=== PATIENT | female | born 1960 | race Caucasian/White ===

== ENCOUNTER 2016-10-07 02:19 | Emergency (ER) | payer BC, OTHER ==
[~2016-10-07] VITALS: Ht 157.5 cm; Wt 61.2 kg
[~2016-10-07 02:19] MED LIST: PRD20T PO; TRAM50TA2 PO
--- OUTSIDE RECORDS SUMMARY | 2016-10-07 02:25 | XMS REPORT | Continuity of Care Document ---
Author Author [facility] Organization [facility] Address Unknown Phone Unavailable Allergies Active Description Code Type Severity Reaction Onset Reported/Identified Relationship to Patient Clinical Status Yes No Known Drug Allergies [id number] Drug Allergy Unknown N/ A 05/08/2015 Medications Problems Procedures Results Encounters ACCT No. Visit Date/Time Discharge Status Pt. Type Provider Facility Loc./Unit Complaint [id number] 05/08/2015 11:37:00 2014 13:30:00 DIS Emergency ESTEBAN URIARTE [facility] ER
[2016-10-07] MEDS ORDERED: LOVASTATIN (02:33)
[2016-10-07] MEDS ORDERED: NEURONTIN (02:33)
[2016-10-07] MEDS ORDERED: morphine INJ 10 MG/ML 1ML (SYR OR VIAL) IM STA (03:11)
[2016-10-07] MEDS ORDERED: DIAZEPAM INJ 10 MG/2 ML (VALIUM) SYR IM ONE (03:15)
--- NOTE | 2016-10-07 03:18 | ED Neck-Back Pain/Injury ---
General Chief Complaint: Head/Cervical Problems Stated Complaint: PAIN AT BASE OF SKULL & DOWN NECK Nursing Triage Note: PT TO ED 5 W/ C/O PAIN TO BASE OF SKULL ET DOWN NECK ONSET 2100. DENIES INJURY Nursing Sepsis Screen: No Definite Risk Source of Information: Patient, Family Exam Limitations: No Limitations History of Present Illness Time Seen by Provider: 03:00 Initial Comments Here with report of pain to the left side of the neck that radiates from the base of the skull to the left shoulder. Last week had shoulder pain and was treated for that. Has history of arthritic disease. No recent injury. Does have appointment with her primary care doctor in the morning. States she came here tonight because she couldn't sleep. She did take Tylenol at 9 p.m. last night and ibuprofen at 1:30 a.m. this morning. She states that ibuprofen does appear to be helping now. Location: Paraspinous Muscles (left neck) Timing/Duration: 12 Hours Severity: Moderate Pain/Injury Location: Neck Associated Symptoms: muscle spasms Allergies and Home Medications Allergies Coded Allergies: No Known Drug Allergies (Unverified , 05/08/15) Home Medications (Reported) (Reported) Constitutional: see HPINo chills, No fever EENTM: no symptoms reported Respiratory: no symptoms reported Cardiovascular: no symptoms reported Gastrointestinal: no symptoms reported Musculoskeletal: see HPI muscle pain muscle stiffness neck pain Skin: no symptoms reported All Other Systems Reviewed Negative Unless Noted: Yes Past Qzkarzg-Rdmgsy-Stsrdd Hx Patient Social History Alcohol Use: Denies Use Recreational Drug Use: No Smoking Status: Current Everyday Smoker Type Used: Cigarettes Recent Foreign Travel: No Contact w/Someone Who Travel: No Recent Infectious Disease Expo: No Recent Hopitalizations: No Surgeries HX Surgeries: Yes (LUNG SURG, CARPAL TERA) Surgeries: Hysterectomy Respiratory Hx Respiratory Disorders: No Cardiovascular Hx Cardiac Disorders: No Neurological Hx Neurological Disorders: 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 Genitourinary Hx Genitourinary Disorders: No Gastrointestinal Hx Gastrointestinal Disorders: No Musculoskeletal Hx Musculoskeletal Disorders: Yes Musculoskeletal Disorders: Degenerate Disk Disease, Arthritis Endocrine Hx Endocrine Disorders: No Reviewed Nursing Assessment Reviewed/Agree w Nursing PMH: Yes Family Medical History Significant Family History: No Pertinent Family Hx Physical Exam Vital Signs Vital Sign - Last 12Hours 10/07/16 02:24 Temp 96.7 Pulse 93 Resp 18 B/P 174/82 Pulse Ox 95 O2 Delivery Room Air Capillary Refill : Less Than 3 Seconds General Appearance: WD/WN Mild Distress (neck pain) HEENT: PERRL/EOMI Pharynx Normal Neck: Supple Tender Lateral (left)No Tender Midline Cardiovascular: Regular Rate, Rhythm No Murmur Respiratory: Lungs Clear Normal Breath Sounds Back: Normal Inspection No CVA Tenderness No Vertebral Tenderness Extremity: Normal Range of Motion Non Tender Neurologic/Psychiatric: Alert Oriented x3 No Motor/Sensory Deficits Skin: Normal Color Warm/Dry Progress/Results/Core Measures Results/Orders My Orders Orders-DAREN ANGELES MD Diazepam Injection (Valium Injection) (10/07/16 03:15) Morphine Injection (Morphine Injection (10/07/16 03:11) Vital Signs/I&O Vital Sign - Last 12Hours 10/07/16 02:24 Temp 96.7 Pulse 93 Resp 18 B/P 174/82 Pulse Ox 95 O2 Delivery Room Air Blood Pressure Mean: 112 Progress Note : Progress Note Seen and evaluated. Morphine 8 mg IM and Valium 5 mg IM. She has problems with different muscle relaxers and pain meds. She does have a plan with her doctor in the morning. We will provide pain control currently and have her follow-up with her Dr. for further evaluation and medical treatment as indicated. Patient agrees with this plan. Discharged home with return precautions. Patient verbalize understanding instructions and agreement with plan. Departure Impression Impression: Primary Impression: Neck pain Disposition: 01 HOME, SELF-CARE Condition: Stable Departure-Patient Inst. Decision time for Depature: 03:16 Referrals: ANASTASIA TEJEDA MD (PCP/Family) Primary Care Physician Patient Instructions: Neck Pain Add. Discharge Instructions: All discharge instructions reviewed with patient and/or family. Voiced understanding. Keep appointment with her doctor in the morning as scheduled. You may take ibuprofen 800 mg every 8 hours as needed for pain. Return for worse pain, fever , vomiting, weakness, breathing problems or other concerns as needed. DAREN ANGELES MD Oct 07, 2016 03:18
[2016-10-07 03:54] VITALS: BP 152/91
[2016-12-16] MEDS ORDERED: RT-ALBUINH IH (07:26)
[2016-12-16] MEDS ORDERED: PRD20T PO (07:26)
[2016-12-16] MEDS ORDERED: LEVO750T39 PO (07:26)
== END 2016-10-07 03:54 | disposition home or self-care (01) ==
LOC: EDUNIT# 02:19 → ER 02:22
DX: M54.2 Cervicalgia (principal); F17.210 Nicotine dependence, cigarettes, uncomplicated
CPT/HCPCS: 96372; 99282

== ENCOUNTER → 2016-10-13 | Outpatient (CLI) | payer BC ==
[~2016-10-13] MED LIST changes: +ACET-789 PO; +ATOR20TA49 PO; +CEPH500C PO; +CETI10CA PO; +DEXT1TAB PO; +GABA600T PO; +LEVO750T39 PO; +LOVA20TA2 PO; +LOVASTATIN; +METH500T PO; +NEURONTIN; +RT-ALBUINH IH; +[UNRECOGNIZED DRUG - CODE] PO
--- OUTSIDE RECORDS SUMMARY | 2016-10-13 11:42 | XMS REPORT | Continuity of Care Document ---
Author Author [facility] Organization [facility] Address Unknown Phone Unavailable Allergies Active Description Code Type Severity Reaction Onset Reported/Identified Relationship to Patient Clinical Status Yes No Known Drug Allergies [id number] Drug Allergy Unknown N/ A 05/08/2015 Medications Problems Date Dx Coded Attending Type Code Diagnosis Diagnosed By 05/08/2015 ESTEBAN URIARTE Ot 715.90 OSTEOARTHROS NOS-UNSPEC 05/08/2015 ESTEBAN URIARTE Ot 719.45 JOINT PAIN-PELVIS 10/07/2016 DAREN ANGELES MD Ot F17.210 NICOTINE DEPENDENCE, CIGARETTES, UNCOMPL 10/07/2016 DAREN ANGELES MD Ot M54.2 CERVICALGIA Procedures Results Encounters ACCT No. Visit Date/Time Discharge Status Pt. Type Provider Facility Loc./Unit Complaint [id number] 10/07/2016 02:22:00 2016 03:54:00 DIS Outpatient DAREN ANGELES MD [facility] ER PAIN AT BASE OF SKULL DOWN NECK [id number] 05/08/2015 11:37:00 2014 13:30:00 DIS Emergency ETSEBAN URIARTE [facility] ER RIGHT HIP PAIN
--- NOTE | 2016-10-13 17:16 | Diagnostic Imaging Report ---
Three views of the cervical spine. INDICATION: Neck pain. FINDINGS: There is straightening of the cervical spine curvature which could be positional or related to muscle spasm. There is satisfactory alignment at the posterior spinal line and at the facet joints. There is satisfactory alignment of the lateral masses of C1 and C2. The vertebral body heights are preserved. Disc heights are also preserved. Multilevel anterior osteophytes and anterior longitudinal ligament ossification seen. There are minimal posterior osteophytes seen in the mid cervical spine. IMPRESSION: Minimal posterior osteophytes are suggested in the mid cervical spine. If symptoms persist, then further evaluation with MRI would better evaluate the effects on the thecal sac. Dictated by: Dictated on workstation # [id number]
== END ==
LOC: RAD 11:38
PROVIDERS: ATTEND Family Medicine
DX: M54.2 Cervicalgia (principal)
CPT/HCPCS: 72040

== ENCOUNTER 2016-11-13 16:43 | Emergency (ER) | payer SELFPAY ==
[~2016-11-13] VITALS: Ht 157.5 cm; Wt 60.8 kg
[~2016-11-13 16:43] MED LIST changes: -ACET-789 PO; -ATOR20TA49 PO; -CEPH500C PO; -CETI10CA PO; -DEXT1TAB PO; -GABA600T PO; -LEVO750T39 PO; -LOVA20TA2 PO; -METH500T PO; -RT-ALBUINH IH; -[UNRECOGNIZED DRUG - CODE] PO
[2016-11-13] MEDS ORDERED: LOVA20TA2 PO (17:07)
[2016-11-13] MEDS ORDERED: CETI10CA PO (17:07)
[2016-11-13] MEDS ORDERED: GABA600T PO (17:07)
--- NOTE | 2016-11-13 18:02 | ED EENT ---
History of Present Illness General Chief Complaint: Dental Problems/Pain Stated Complaint: DENTAL PAIN Nursing Triage Note: Pt c/o R lower dental pain. Pt reports she had teeth pulled 5 days ago to make room for new dentures. Pt states she thinks she had a dry socket that got infected. Source: patient Exam Limitations: no limitations History of Present Illness Time seen by provider: 18:02 Initial Comments 56-year-old female patient presents to the emergency department complains of right lower dental pain after having teeth extracted 5 days ago. Denies fever, chills, difficulty swallowing, difficulty breathing. Patient states she is currently taking Zyrtec for an upper respiratory infection. Timing/Duration: gradual Location: dental (right lower dental pain) Prearrival Treatment: over the counter meds Modifying Factors: Worse With Other (worse with palpation) Allergies and Home Medications Allergies Coded Allergies: No Known Drug Allergies (Unverified , 05/08/15) Home Medications Cephalexin 500 Mg Capsule, 500 MG PO TID for 7 Days, #21 Ref 0 Prescribed by: ESTEBAN GRIMES on 11/13/161836 Cetirizine HCl 10 Mg Capsule, 10 MG PO DAILY, (Reported) Gabapentin 600 Mg Tablet, 600 MG PO TID, (Reported) Lovastatin 20 Mg Tablet, 20 MG PO HS, (Reported) Tramadol HCl 50 Mg Tablet, 50 MG PO Q4H PRN for PAIN, #14 Ref 0 Prescribed by: ESTEBAN GRIMES on 11/13/161836 Review of Systems Constitutional: No chills, No fever, No malaise Eyes: No Symptoms Reported Ears: No Symptoms Reported Nose: no symptoms reported Mouth: see HPI, pain, denies swelling Throat: denies pain, denies swelling, denies neck stiffness, denies hoarse, denies aphonia, denies muffled, denies painful swallowing, denies difficulty with fluids Respiratory: cough, No short of breath, No stridor, wheezing Cardiovascular: no symptoms reported Gastrointestinal: no symptoms reported Skin: no symptoms reported Neurological: No Symptoms Reported All Other Systems Reviewed Negative Unless Noted: Yes (Negative excepted noted.) Past Sdqektt-Rqqtsj-Tmufca Hx Patient Social History Alcohol Use: Denies Use Recreational Drug Use: No Smoking Status: Current Everyday Smoker Type Used: Cigarettes Recent Foreign Travel: No Contact w/Someone Who Travel: No Recent Infectious Disease Expo: No Recent Hopitalizations: No Seasonal Allergies Seasonal Allergies: No Surgeries HX Surgeries: Yes (LUNG SURG, CARPAL TERA) Surgeries: Hysterectomy Respiratory Hx Respiratory Disorders: No Cardiovascular Hx Cardiac Disorders: Yes Cardiac Disorders: High Cholesterol Neurological Hx Neurological Disorders: No 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 Genitourinary Hx Genitourinary Disorders: No Gastrointestinal Hx Gastrointestinal Disorders: No Musculoskeletal Hx Musculoskeletal Disorders: Yes Musculoskeletal Disorders: Degenerate Disk Disease, Arthritis Endocrine Hx Endocrine Disorders: No Reviewed Nursing Assessment Reviewed/Agree w Nursing PMH: Yes Family Medical History Significant Family History: No Pertinent Family Hx Physical Exam Vital Signs Vital Sign - Last 12Hours 11/13/16 17:02 Temp 98.6 Pulse 87 Resp 18 B/P (MAP) 154/68 Pulse Ox 94 O2 Delivery Room Air General Appearance: WD/WN, no apparent distress Eyes: bilateral eye EOMI, bilateral eye PERRL, bilateral eye normal inspection Ears: bilateral ear TM normal, bilateral ear auricle normal, bilateral ear canal normal Nose: normal inspection Mouth/Throat: pharynx normal, No excessive drooling, No mandibular swelling, No maxillary swelling, other (mild swelling of the right lower gums with mild erythema. No drainage noted.) Neck: non-tender, full range of motion, supple, lymphadenopathy (R), lymphadenopathy (L) Cardiovascular: regular rate, rhythm, no murmur Respiratory: no respiratory distress, wheezing, expiration Gastrointestinal: non tender, soft, No distended Neurologic/Psychiatric: alert, normal mood/affect, oriented x 3 Skin: normal color, warm/dry Progress/Results/Core Measures Results/Orders My Orders Orders - ESTEBAN GRIMES Rx-Cephalexin Capsule (Rx-Keflex Capsule (11/13/16 18:34) Rx-Tramadol Hcl (Rx-Ultram) (11/13/16 18:34) Hydrocodone/Apap 5/325 Tablet (Lortab 5 (11/13/16 18:34) Rx-Albuterol Inhaler (Rx-Proair) (11/13/16 18:34) Vital Signs/I&O Vital Sign - Last 12Hours 11/13/16 17:02 Temp 98.6 Pulse 87 Resp 18 B/P (MAP) 154/68 Pulse Ox 94 O2 Delivery Room Air Blood Pressure Mean: 96 Departure Communication Progress Notes Patient seen and evaluated. Plan for discharge to home with oral tramadol, cephalexin, and albuterol inhaler. Patient instructed to follow-up with her dentist tomorrow as an outpatient. Impression Impression: Primary Impression: Pain, dental Additional Impression: Acute bronchitis Qualified Codes: J20.9 - Acute bronchitis, unspecified Disposition: 01 HOME, SELF-CARE Condition: Improved Departure-Patient Inst. Decision time for Depature: 18:35 Referrals: ANASTASAI TEJEDA MD (PCP/Family) Primary Care Physician Patient Instructions: Acute Bronchitis, Adult (DC), Dental Pain (DC) Add. Discharge Instructions: All discharge instructions reviewed with patient and/or family. Voiced understanding. Medications as instructed. Tylenol Extra Strength [id number]-[id number] as directed for pain. Ibuprofen 800 mg by mouth every 8 hours as needed for pain. Orajel jozv-bix-[id number] as directed for dental pain. Ice packs or heating pads as needed. Soft diet. Follow-up with your dentist as an outpatient for recheck. Call for appointment time. Follow-up with Dr. Tejeda for recheck. Return to the emergency department for worsened symptoms or any other concerns. Scripts Tramadol HCl (Tramadol HCl) 50 Mg Tablet 50 MG PO Q4H Y for PAIN, #14 TAB 0 Refills Prov: ESTEBAN GRIMES 11/13/16 Cephalexin (Cephalexin) 500 Mg Capsule 500 MG PO TID for 7 Days, #21 CAP 0 Refills Prov: ESTEBAN GRIMES 11/13/16 ESTEBAN GRIMES Nov 13, 2016 18:02
[2016-11-13] MEDS ORDERED: RX-ALBUTEROL INHALER (PROAIR) 8 GM IH STA (18:34)
[2016-11-13] MEDS ORDERED: HYDROcodone/APAP 5 MG/325 MG (LORTAB) TAB PO STA (18:34)
[2016-11-13] MEDS ORDERED: RX-TRAMADOL 50 MG (ULTRAM) TAB PPK#4 PO STA (18:34)
[2016-11-13] MEDS ORDERED: RX-CEPHALEXIN (KEFLEX) 250 MG CAP PPK#4 PO STA (18:34)
[2016-11-13] MEDS ORDERED: CEPH500C PO (18:37)
[2016-11-13] MEDS ORDERED: TRAM50TA2 PO (18:37)
[2016-11-16 07:18] VITALS: BP 154/68
[2016-12-16] MEDS ORDERED: RT-ALBUINH IH (07:26)
[2016-12-16] MEDS ORDERED: LEVO750T39 PO (07:26)
[2016-12-16] MEDS ORDERED: PRD20T PO (07:26)
--- OUTSIDE RECORDS SUMMARY | 2016-12-18 04:11 | XMS REPORT ---
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 Info Not Available Non Drug Allergy Problems Problem Type Condition Code Onset Dates Condition Status Problem Restless leg syndrome G25.81 Active Assessment Psoriatic arthritis L40.50 Active Problem Psoriatic arthritis L40.50 Active Assessment Restless leg syndrome G25.81 Active Medications Medication Code System Code Instructions Start Date End Date Status Dosage Neurontin [facility] [address]-25 400 MG Orally ONE DAILY X ONE WEEK AND THEN TWICE DAILY Jun 15, 2015 1 capsule Procedures Procedure Coding System Code Date C-REACTIVE PROTEIN CPT-4 03939 Jun 15, 2015 RBC SED RATE, AUTOMATED CPT-4 09266 Jun 15, 2015 ANTINUCLEAR ANTIBODIES CPT-4 93070 Jun 15, 2015 Office Visit, New Pt., Level 4 CPT-4 35617 Jun 15, 2015 ASSAY THYROID STIM HORMONE CPT-4 72274 Jun 15, 2015 VENIPUNCT, ROUTINE* CPT-4 66077 Jun 15, 2015 ASSAY OF BLOOD/URIC ACID CPT-4 26023 Jun 15, 2015 RHEUMATOID FACTOR, QUANT CPT-4 81830 Jun 15, 2015 COMPREHEN METABOLIC PANEL CPT-4 87860 Jun 15, 2015 COMPLETE CBC W/AUTO DIFF WBC CPT-4 67723 Jun 15, 2015 Vital Signs Date/Time: Jun 15, 2015 Temperature 98.7 F Weight 117.9 lbs Height 62 in BMI 21.56 Index Blood Pressure Diastolic 82 mmHg Blood Pressure Systolic 138 mmHg Cardiac Monitoring Heart Rate 84 bpm Results Name Result Date Reference Range Unit Abnormality Flag ROUTINE VENIPUNCTURE Summary Purpose [employer] Submission
--- OUTSIDE RECORDS SUMMARY | 2016-12-18 04:11 | XMS REPORT ---
Author Author GENNA NICE [facility] [employer] Address Unknown Phone Unavailable Care Team Providers Care Cuff Cutter Name Role Phone GENNA NICE CP Unavailable Allergies, Adverse Reactions, Alerts Substance Reaction Event Type N.K.D.A. Info Not Available Non Drug Allergy Problems Problem Type Condition Code Onset Dates Condition Status Problem Psoriatic arthritis L40.50 Active Problem Restless leg syndrome G25.81 Active Problem Degenerative disc disease, cervical M50.30 Active Assessment Gout M10.9 Active Assessment Degenerative disc disease, cervical M50.30 Active Problem Gout M10.9 Active Assessment Restless leg syndrome G25.81 Active Medications Medication Code System Code Instructions Start Date End Date Status Dosage Allopurinol [facility] [address]-83 300 MG Orally Once a day Jun 16, 2015Jul [address] [facility] [address]-80 400 MG Orally Three times a day Jun 29, [address] [facility] [address]-44 50 MG Orally every 8 hrs PRN pain Jun 29, 2015 1 tablet as needed Procedures Procedure Coding System Code Date Office Visit, Est Pt., Level 4 CPT-4 78676 Jun 29, 2015 No Charge CPT-4 12930 Jun 29, 2015 Vital Signs Date/Time: Jun 29, 2015 Temperature 98.4 F Weight 120.1 lbs Height 62 in BMI 21.96 Index Blood Pressure Diastolic 60 mmHg Blood Pressure Systolic 120 mmHg Cardiac Monitoring Heart Rate 86 bpm Results No Known Results Summary Purpose [employer] Submission
--- OUTSIDE RECORDS SUMMARY | 2016-12-18 04:11 | XMS REPORT | Continuity of Care Document ---
Author Author [facility] Organization [facility] Address Unknown Phone Unavailable Allergies Active Description Code Type Severity Reaction Onset Reported/Identified Relationship to Patient Clinical Status Yes No Known Drug Allergies [id number] Drug Allergy Unknown N/ A 05/08/2015 Medications Problems Date Dx Coded Attending Type Code Diagnosis Diagnosed By 05/08/2015 ESTEBAN URIARTE Ot 715.90 OSTEOARTHROS NOS-UNSPEC 05/08/2015 ESTEBAN URIARTE Ot 719.45 JOINT PAIN-PELVIS 10/07/2016 DAREN ANGELES MD Ot F17.210 NICOTINE DEPENDENCE, CIGARETTES, UNCOMPL 10/07/2016 DAREN ANGELES MD Ot M54.2 CERVICALGIA 10/07/2016 DAREN ANGELES MD Ot F17.210 NICOTINE DEPENDENCE, CIGARETTES, UNCOMPL 10/07/2016 DAREN ANGELES MD Ot M54.2 CERVICALGIA 10/13/2016 NIKHIL RAYMOND, ANASTASIA Torres Ot M54.2 CERVICALGIA 11/02/2016 NIKHIL RAYMOND, ANASTASIA Torres Ot M54.2 CERVICALGIA 11/13/2016 NIKHIL RAYMOND, ANASTASIA Torres Ot M54.2 CERVICALGIA 11/13/2016 ESTEBAN URIARTE Ot F17.210 NICOTINE DEPENDENCE, CIGARETTES, UNCOMPL 11/13/2016 ESTEBAN URIARTE Ot J20.9 ACUTE BRONCHITIS, UNSPECIFIED 11/13/2016 ESTEBAN URIARTE Ot K08.9 DISORDER OF TEETH AND SUPPORTING STRUCTU 11/13/2016 ESTEBAN URIARTE Ot Z79.899 OTHER PENITENTIARY (CURRENT) DRUG THERAPY 11/13/2016 ESTEBAN URIARTE Ot Z98.890 OTHER SPECIFIED POSTPROCEDURAL STATES 11/13/2016 ANASTASIA TEJEDA MD Ot M54.2 CERVICALGIA 11/15/2016 ESTEBAN URIARTE Ot F17.210 NICOTINE DEPENDENCE, CIGARETTES, UNCOMPL 11/15/2016 ESTEBAN URIARTE Ot J20.9 ACUTE BRONCHITIS, UNSPECIFIED 11/15/2016 ESTEBAN URIARTE Ot K08.9 DISORDER OF TEETH AND SUPPORTING STRUCTU 11/15/2016 ESTEBAN URIARTE Ot Z79.899 OTHER PENITENTIARY (CURRENT) DRUG THERAPY 11/15/2016 ESTEBAN URIARTE Ot Z98.890 OTHER SPECIFIED POSTPROCEDURAL STATES 11/17/2016 ANASTASIA TEJEDA MD Ot M54.2 CERVICALGIA 12/12/2016 ANASTASIA TEJEDA MD, Ot M54.2 CERVICALGIA 12/13/2016 ANASTASIA TEJEDA MD, Ot A41.9 SEPSIS, UNSPECIFIED ORGANISM 12/13/2016 ANASTASIA TEJEDA MD Ot E78.00 PURE HYPERCHOLESTEROLEMIA, UNSPECIFIED 12/13/2016 ANASTASIA TEJEDA MD Ot F17.210 NICOTINE DEPENDENCE, CIGARETTES, UNCOMPL 12/13/2016 ANASTASIA TEJEDA MD, Ot J18.9 PNEUMONIA, UNSPECIFIED ORGANISM 12/13/2016 ANASTASIA TEJEDA MD Ot A41.9 SEPSIS, UNSPECIFIED ORGANISM 12/13/2016 ANASTASIA TEJEDA MD Ot E78.00 PURE HYPERCHOLESTEROLEMIA, UNSPECIFIED 12/13/2016 ANASTASIA TEJEDA MD Ot F17.210 NICOTINE DEPENDENCE, CIGARETTES, UNCOMPL 12/13/2016 ANASTASIA TEJEDA MD, Ot J18.9 PNEUMONIA, UNSPECIFIED ORGANISM Procedures Results Test Result Range Complete blood count (CBC) with automated white blood cell (WBC) differential - 12/12/16 18:35 Blood leukocytes automated count (number/volume) 29.4 10*3/ uL 4.3-11.0 Blood erythrocytes automated count (number/volume) 4.39 10*6 /uL 4.35-5.85 Venous blood hemoglobin measurement (mass/volume) 13.5 g/dL 11.5-16.0 Blood hematocrit (volume fraction) 40 % 35-52 Automated erythrocyte mean corpuscular volume 92 [foz_us] 80-99 Automated erythrocyte mean corpuscular hemoglobin (mass per erythrocyte) 31 pg 25-34 Automated erythrocyte mean corpuscular hemoglobin concentration measurement ( mass/volume) 34 g/dL 32-36 Automated erythrocyte distribution width ratio 13.0 % 10.0-14.5 Automated blood platelet count (count/volume) 390 10*3/uL 130-400 Automated blood platelet mean volume measurement 9.7 [foz_us ] 7.4-10.4 Automated blood neutrophils/100 leukocytes 85 % 42-75 Automated blood lymphocytes/100 leukocytes 8 % 12-44 Blood monocytes/100 leukocytes 6 % 0-12 Automated blood eosinophils/100 leukocytes 0 % 0-10 Automated blood basophils/100 leukocytes 0 % 0-10 Blood neutrophils automated count (number/volume) 25.0 10*3 1.8-7.8 Blood lymphocytes automated count (number/volume) 2.3 10*3 1.0-4.0 Blood monocytes automated count (number/volume) 1.9 10*3 0.0-1.0 Automated eosinophil count 0.0 10*3/uL 0.0-0.3 Automated blood basophil count (count/volume) 0.1 10*3/uL 0.0-0.1 Blood manual differential performed detection - 12/12/16 18:35 Blood monocytes/100 leukocytes 2 % NRG Manual blood segmented neutrophils/100 leukocytes 84 % NRG Blood band neutrophils/100 leukocytes 4 % NRG Manual blood lymphocytes/100 leukocytes 10 % NRG Manual eosinophils/100 leukocytes in nose 0 % NRG Manual blood basophils/100 leukocytes 0 % NRG Blood erythrocyte morphology finding identification NORMAL NRG Blood lactic acid measurement (moles/volume) - 12/12/16 18:35 Blood lactic acid measurement (moles/volume) 1.47 mmol/L 0.50-2.00 Comprehensive metabolic panel - 12/12/16 18:35 Serum or plasma sodium measurement (moles/volume) 136 mmol/ L 135-145 Serum or plasma potassium measurement (moles/volume) 3.8 mmol/L 3.6-5.0 Serum or plasma chloride measurement (moles/volume) 103 mmol /L 98-107 Carbon dioxide 20 mmol/L 21-32 Serum or plasma anion gap determination (moles/volume) 13 mmol/L 5-14 Serum or plasma urea nitrogen measurement (mass/volume) 6 mg /dL 7-18 Serum or plasma creatinine measurement (mass/volume) 0.75 mg /dL 0.60-1.30 Serum or plasma urea nitrogen/creatinine mass ratio 8 NRG Serum or plasma creatinine measurement with calculation of estimated glomerular filtration rate > NRG Serum or plasma glucose measurement (mass/volume) 160 mg/dL 70-105 Serum or plasma calcium measurement (mass/volume) 9.9 mg/dL 8.5-10.1 Serum or plasma total bilirubin measurement (mass/volume) 0.5 mg/dL 0.1-1.0 Serum or plasma alkaline phosphatase measurement (enzymatic activity/volume) 34 U/L 40-136 Serum or plasma aspartate aminotransferase measurement (enzymatic activity/ volume) 13 U/L 5-34 Serum or plasma alanine aminotransferase measurement (enzymatic activity/volume ) 13 U/L 0-55 Serum or plasma protein measurement (mass/volume) 7.9 g/dL 6.4-8.2 Serum or plasma albumin measurement (mass/volume) 4.2 g/dL 3.2-4.5 Bacterial blood culture - 12/12/16 18:35 Bacterial blood culture NG NRG Bacterial blood culture - 12/12/16 18:58 Bacterial blood culture NG NRG Complete blood count (CBC) with automated white blood cell (WBC) differential - 12/13/16 04:25 Blood leukocytes automated count (number/volume) 28.4 10*3/ uL 4.3-11.0 Blood erythrocytes automated count (number/volume) 3.72 10*6 /uL 4.35-5.85 Venous blood hemoglobin measurement (mass/volume) 11.3 g/dL 11.5-16.0 Blood hematocrit (volume fraction) 34 % 35-52 Automated erythrocyte mean corpuscular volume 91 [foz_us] 80-99 Automated erythrocyte mean corpuscular hemoglobin (mass per erythrocyte) 30 pg 25-34 Automated erythrocyte mean corpuscular hemoglobin concentration measurement ( mass/volume) 33 g/dL 32-36 Automated erythrocyte distribution width ratio 12.7 % 10.0-14.5 Automated blood platelet count (count/volume) 344 10*3/uL 130-400 Automated blood platelet mean volume measurement 9.6 [foz_us ] 7.4-10.4 Automated blood neutrophils/100 leukocytes 90 % 42-75 Automated blood lymphocytes/100 leukocytes 6 % 12-44 Blood monocytes/100 leukocytes 4 % 0-12 Automated blood eosinophils/100 leukocytes 0 % 0-10 Automated blood basophils/100 leukocytes 0 % 0-10 Blood neutrophils automated count (number/volume) 25.6 10*3 1.8-7.8 Blood lymphocytes automated count (number/volume) 1.8 10*3 1.0-4.0 Blood monocytes automated count (number/volume) 1.0 10*3 0.0-1.0 Automated eosinophil count 0.0 10*3/uL 0.0-0.3 Automated blood basophil count (count/volume) 0.1 10*3/uL 0.0-0.1 Complete blood count (CBC) with automated white blood cell (WBC) differential - 12/14/16 04:20 Blood leukocytes automated count (number/volume) 25.1 10*3/ uL 4.3-11.0 Blood erythrocytes automated count (number/volume) 3.65 10*6 /uL 4.35-5.85 Venous blood hemoglobin measurement (mass/volume) 11.1 g/dL 11.5-16.0 Blood hematocrit (volume fraction) 33 % 35-52 Automated erythrocyte mean corpuscular volume 91 [foz_us] 80-99 Automated erythrocyte mean corpuscular hemoglobin (mass per erythrocyte) 30 pg 25-34 Automated erythrocyte mean corpuscular hemoglobin concentration measurement ( mass/volume) 33 g/dL 32-36 Automated erythrocyte distribution width ratio 13.0 % 10.0-14.5 Automated blood platelet count (count/volume) 387 10*3/uL 130-400 Automated blood platelet mean volume measurement 9.8 [foz_us ] 7.4-10.4 Automated blood neutrophils/100 leukocytes 90 % 42-75 Automated blood lymphocytes/100 leukocytes 8 % 12-44 Blood monocytes/100 leukocytes 2 % 0-12 Automated blood eosinophils/100 leukocytes 0 % 0-10 Automated blood basophils/100 leukocytes 0 % 0-10 Blood neutrophils automated count (number/volume) 22.5 10*3 1.8-7.8 Blood lymphocytes automated count (number/volume) 1.9 10*3 1.0-4.0 Blood monocytes automated count (number/volume) 0.6 10*3 0.0-1.0 Automated eosinophil count 0.0 10*3/uL 0.0-0.3 Automated blood basophil count (count/volume) 0.0 10*3/uL 0.0-0.1 Complete blood count (CBC) with automated white blood cell (WBC) differential - 12/15/16 08:25 Blood leukocytes automated count (number/volume) 19.2 10*3/ uL 4.3-11.0 Blood erythrocytes automated count (number/volume) 3.63 10*6 /uL 4.35-5.85 Venous blood hemoglobin measurement (mass/volume) 11.1 g/dL 11.5-16.0 Blood hematocrit (volume fraction) 34 % 35-52 Automated erythrocyte mean corpuscular volume 93 [foz_us] 80-99 Automated erythrocyte mean corpuscular hemoglobin (mass per erythrocyte) 31 pg 25-34 Automated erythrocyte mean corpuscular hemoglobin concentration measurement ( mass/volume) 33 g/dL 32-36 Automated erythrocyte distribution width ratio 13.4 % 10.0-14.5 Automated blood platelet count (count/volume) 389 10*3/uL 130-400 Automated blood platelet mean volume measurement 9.4 [foz_us ] 7.4-10.4 Automated blood neutrophils/100 leukocytes 79 % 42-75 Automated blood lymphocytes/100 leukocytes 16 % 12-44 Blood monocytes/100 leukocytes 4 % 0-12 Automated blood eosinophils/100 leukocytes 0 % 0-10 Automated blood basophils/100 leukocytes 1 % 0-10 Blood neutrophils automated count (number/volume) 15.2 10*3 1.8-7.8 Blood lymphocytes automated count (number/volume) 3.0 10*3 1.0-4.0 Blood monocytes automated count (number/volume) 0.8 10*3 0.0-1.0 Automated eosinophil count 0.1 10*3/uL 0.0-0.3 Automated blood basophil count (count/volume) 0.2 10*3/uL 0.0-0.1 Encounters ACCT No. Visit Date/Time Discharge Status Pt. Type Provider Facility Loc./Unit Complaint [id number] 11/13/2016 16:44:00 2016 18:55:00 DIS Emergency ESTEBAN URIARTE [facility] ER DENTAL PAIN [id number] 10/07/2016 02:22:00 2016 03:54:00 DIS Emergency DAREN ANGELES MD [facility] ER PAIN AT BASE OF SKULL DOWN NECK [id number] 05/08/2015 11:37:00 2014 13:30:00 DIS Emergency ESTEBAN URIARTE [facility] ER RIGHT HIP PAIN [id number] 12/12/2016 19:52:00 ACT Inpatient NIKHIL RAYMOND, ANASTASIA Torres [facility] 4TH RML PNEUMONIA, SEPSIS [id number] 10/13/2016 11:38:00 ACT Outpatient NIKHIL RAYMOND, ANASTASIA Torres [facility] RAD CERVICAL NECK PAIN
--- OUTSIDE RECORDS SUMMARY | 2016-12-18 04:11 | XMS REPORT ---
Author Author GENNA NICE [facility] eClinical[employer] Address Unknown Phone Unavailable Care Team Providers Care Canoe Inspector Final Name Role Phone GENNA NICE Unavailable Allergies No Known Allergies Problems Problem Type Condition Code Onset Dates Condition Status Problem Restless leg syndrome G25.81 Active Problem Psoriatic arthritis L40.50 Active Medications Medication Code System Code Instructions Start Date End Date Status Dosage Allopurinol [facility] [address]-92 300 MG Orally Once a day Jun 16, 2015Jul 1 tablet Results No Known Results Summary Purpose eClinicalWorks Submission
== END 2016-11-13 18:55 | disposition home or self-care (01) ==
LOC: EDUNIT# 16:43 → ER 16:44
DX: K08.9 Disorder of teeth and supporting structures, unspecified (principal); J20.9 Acute bronchitis, unspecified; F17.210 Nicotine dependence, cigarettes, uncomplicated; Z79.899 Other long term (current) drug therapy; Z98.890 Other specified postprocedural states
CPT/HCPCS: 99281; 99282

== ENCOUNTER 2016-12-12 18:03 | Inpatient (IN) | payer OTHER ==
[~2016-12-12] VITALS: Ht 157.5 cm; Wt 59.0 kg
[~2016-12-12 18:03] MED LIST changes: +CEPH500C PO; +CETI10CA PO; +GABA600T PO; +LOVA20TA2 PO
[2016-12-12] MEDS ORDERED: RT-ALBUTEROL/IPRATROPIUM 3 ML (DUONEB) VIAL ONE (18:34)
--- NOTE | 2016-12-12 18:34 | ED Dyspnea ---
General Stated Complaint: HEAD COLD/SOB/PAINFUL BREATHING Source of Information: Patient, RN Notes Reviewed Exam Limitations: No Limitations (LAUREN HURTADO DO) History of Present Illness Time Seen by Provider: 18:33 (LAUREN HURTADO DO) Initial Comments To ER with a one-week history rhinorrhea, shortness of breath, productive cough , fevers chills and weakness. Her family believes her to have pneumonia. She does smoke 1 pack of cigarettes per day but has been unable to do so recently due to the shortness of breath and cough. She is febrile upon arrival to ER at 103.2. Timing/Duration: 1 Week Severity: Moderate Associated Symptoms: Fever, Weakness, Wheezing (JASON ROLON APRN) Allergies and Home Medications Allergies Coded Allergies: No Known Drug Allergies (Unverified , 05/08/15) Home Medications Acetaminophen with Codeine 1 Each Tablet, 1 TAB PO Q6H PRN for PAIN-MODERATE, ( Reported) Atorvastatin Calcium 20 Mg Tablet, 20 MG PO DAILY, (Reported) Gabapentin 600 Mg Tablet, 600 MG PO TID, (Reported) Guaifenesin/Phenylephrine HCl 1 Each Tablet, 2 TAB PO Q4H PRN for CONGESTION, ( Reported) Methocarbamol 500 Mg Tablet, 500-1,000 MG PO Q6H PRN for MUSCLE SPASMS, ( Reported) Constitutional: see HPI, chills, fever, malaise, weakness EENTM: nose congestion, see HPI Respiratory: see HPI, cough Cardiovascular: no symptoms reported Genitourinary: no symptoms reported Musculoskeletal: no symptoms reported Skin: no symptoms reported Psychiatric/Neurological: No Symptoms Reported (JASON ROLON APRN) Past Dulepvc-Ryiktn-Vavexu Hx Patient Social History Type Used: Cigarettes Recent Foreign Travel: No Contact w/Someone Who Travel: No Recent Hopitalizations: No (LAUREN HURTADO DO) Seasonal Allergies Seasonal Allergies: No (LAUREN HURTADO DO) Surgeries HX Surgeries: Yes (LUNG SURG, CARPAL TERA) Surgeries: Hysterectomy (LAUREN HURTADO DO) Respiratory Hx Respiratory Disorders: No (LAUREN HURTADO DO) Cardiovascular Hx Cardiac Disorders: Yes Cardiac Disorders: High Cholesterol (LAUREN HURTADO DO) Neurological Hx Neurological Disorders: No (LAUREN HURTADO DO) 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 (LAUREN HURTADO DO) Genitourinary Hx Genitourinary Disorders: No (LAUREN HURTADO DO) Gastrointestinal Hx Gastrointestinal Disorders: No (LAUREN HURATDO DO) Musculoskeletal Hx Musculoskeletal Disorders: Yes Musculoskeletal Disorders: Degenerate Disk Disease, Arthritis (LAUREN HURTADO DO) Endocrine Hx Endocrine Disorders: No (LAUREN HURTADO DO) Family Medical History Significant Family History: No Pertinent Family Hx (LAUREN HURTADO DO) Physical Exam Vital Signs Vital Sign - Last 12Hours 12/12/16 18:30 Temp 103.2 Pulse 131 Resp 28 B/P (MAP) 146/72 Pulse Ox 90 (JASON ROLON APRN) Vital Signs Capillary Refill : (LAUREN HURTADO DO) General Appearance: No Apparent Distress, WD/WN, Mild Distress HEENT: PERRL/EOMI, TMs Normal Neck: Full Range of Motion, Normal Inspection Respiratory: No Accessory Muscle Use, No Respiratory Distress, Crackles, Decreased Breath Sounds, Rhonci, Wheezing Cardiovascular: Normal Peripheral Pulses, Tachycardia Gastrointestinal: Normal Bowel Sounds, Non Tender, Soft Extremity: Normal Capillary Refill, Normal Inspection Neurologic/Psychiatric: Alert, Oriented x3 Skin: Normal Color, Warm/Dry (JASON ROLON APRN) Focused Exam Lactic Acid Level Laboratory Tests Test 12/12/16 18:35 Lactic Acid Level 1.47 MMOL/L (0.50-2.00) (JASON ROLON APRN) Progress/Results/Core Measures Results/Orders Lab Results Laboratory Tests Test 12/12/16 18:35 Range/Units White Blood Count 29.4 H 4.3-11.0 10^3/uL Red Blood Count 4.39 4.35-5.85 10^6/uL Hemoglobin 13.5 11.5-16.0 G/DL Hematocrit 40 35-52 % Mean Corpuscular Volume 92 80-99 FL Mean Corpuscular Hemoglobin 31 25-34 PG Mean Corpuscular Hemoglobin Concent 34 32-36 G/DL Red Cell Distribution Width 13.0 10.0-14.5 % Platelet Count 390 130-400 10^3/uL Mean Platelet Volume 9.7 7.4-10.4 FL Neutrophils (%) (Auto) 85 H 42-75 % Lymphocytes (%) (Auto) 8 L 12-44 % Monocytes (%) (Auto) 6 0-12 % Eosinophils (%) (Auto) 0 0-10 % Basophils (%) (Auto) 0 0-10 % Neutrophils # (Auto) 25.0 H 1.8-7.8 X 10^3 Lymphocytes # (Auto) 2.3 1.0-4.0 X 10^3 Monocytes # (Auto) 1.9 H 0.0-1.0 X 10^3 Eosinophils # (Auto) 0.0 0.0-0.3 10^3/uL Basophils # (Auto) 0.1 0.0-0.1 10^3/uL Neutrophils % (Manual) 84 % Lymphocytes % (Manual) 10 % Monocytes % (Manual) 2 % Eosinophils % (Manual) 0 % Basophils % (Manual) 0 % Band Neutrophils 4 % Blood Morphology Comment NORMAL Sodium Level 136 135-145 MMOL/L Potassium Level 3.8 3.6-5.0 MMOL/L Chloride Level 103 98-107 MMOL/L Carbon Dioxide Level 20 L 21-32 MMOL/L Anion Gap 13 5-14 MMOL/L Blood Urea Nitrogen 6 L 7-18 MG/DL Creatinine 0.75 0.60-1.30 MG/DL Estimat Glomerular Filtration Rate > 60 BUN/Creatinine Ratio 8 Glucose Level 160 H 70-105 MG/DL Lactic Acid Level 1.47 0.50-2.00 MMOL/L Calcium Level 9.9 8.5-10.1 MG/DL Total Bilirubin 0.5 0.1-1.0 MG/DL Aspartate Amino Transf (AST/SGOT) 13 5-34 U/L Alanine Aminotransferase (ALT/SGPT) 13 0-55 U/L Alkaline Phosphatase 34 L 40-136 U/L Total Protein 7.9 6.4-8.2 G/DL Albumin 4.2 3.2-4.5 G/DL (JASON ROLON APRN) My Orders Orders - JASON ROLON APRN Cbc With Automated Diff (12/12/16 18:35) Comprehensive Metabolic Panel (12/12/16 18:35) Saline Lock/Iv-Start (12/12/16 18:35) Blood Culture (12/12/16 18:35) Lactic Acid Analyzer (12/12/16 18:35) Chest Pa/Lat (2 View) (12/12/16 18:35) Albuterol/Ipra Inhalation Soln (Duoneb I (12/12/16 18:45) Svn Sm Volume Nebulizer Rt-Rfs (12/12/16 18:35) Ibuprofen Tablet (Motrin Tablet) (12/12/16 18:45) Acetaminophen Tablet (Tylenol Tablet) (12/12/16 18:45) Methylprednisolone Sod Succ (Solu-Medrol (12/12/16 18:45) Albuterol/Ipra Inhalation Soln (Duoneb I (12/12/16 18:34) Manual Differential (12/12/16 18:35) Albuterol Pre-Mix Nebs (Rt) (Proventil P (12/12/16 19:00) (JASON ROLON APRN) Medications Given in ED Current Medications Medications Dose Ordered Sig/Lance Route Start Time Stop Time Status Last Admin Dose Admin Acetaminophen 1,000 mg ONCE ONCE PO 12/12/16 18:45 12/12/16 18:46 DC 12/12/16 18:48 1,000 MG Albuterol/ Ipratropium 3 ml ONCE ONCE INH 12/12/16 18:45 12/12/16 18:46 DC 12/12/16 18:41 3 ML Albuterol/ Ipratropium 3 ml STK-MED ONCE .ROUTE 12/12/16 18:34 12/12/16 18:42 DC 12/12/16 19:38 3 ML Ibuprofen 800 mg ONCE ONCE PO 12/12/16 18:45 12/12/16 18:46 DC 12/12/16 18:48 800 MG Methylprednisolone Sodium Succinate 125 mg ONCE ONCE IVP 12/12/16 18:45 12/12/16 18:46 DC 12/12/16 18:48 125 MG (JASON ROLON APRN) Vital Signs/I&O Vital Sign - Last 12Hours 12/12/16 12/12/16 18:30 18:41 Temp 103.2 Pulse 131 Resp 28 B/P (MAP) 146/72 Pulse Ox 90 93 (JASON ROLON APRN) Diagnostic Imaging Diagonstic Imaging: Xray Plain Films/CT/US/NM/MRI: chest Comments NAME: ALONSOETELVINA MED REC#: [id number] PT STATUS: REG ER : 1960 PHYSICIAN: JASON ROLON APRN ADMIT DATE: 12/12/16/ER Draft Date of Exam:12/12/16 CHEST PA/LAT (2 VIEW) INDICATION: Cough and congestion. Fever x1 week.. TECHNIQUE: Two view chest 7:18 PM CORRELATION STUDY: None FINDINGS: The heart size, mediastinal configuration and pulmonary vasculature are within normal limits. There is patchy density in the right mid and lower lung field. Given history favors probable area of pneumonia. Likely trace effusion. Left lung is relatively clear. Multilevel degenerative change of the thoracic spine with bridging osteophytes. IMPRESSION: 1. Patchy nodular infiltrate at the right mid and lower lung field favoring probable pneumonia. However, followup imaging until resolution is recommended. Mass lesion is not excluded at this time. Dictated on workstation # [id number] Dict: 12/12/161905 Trans: 12/12/161909 SOFIA [id number] Interpreted by: DENIA LUNDBERG DO Electronically signed by: (JASON ROLON APRN) Departure Impression Impression: Primary Impression: right sided pneumonia Additional Impression: Sepsis Disposition: ADMITTED INPATIENT Condition: Stable Decision to Admit Reason: Admit from ER (General) Decision to Admit/Date: December 12, 2016 Time/Decision to Admit Time: 19:42 (JASON ROLON APRN) Departure-Patient Inst. Referrals: ANASTASIA TEJEDA MD (PCP/Family) Primary Care Physician LAUREN HURTADO DO December 12, 2016 18:34 JASON ROLON APRN December 12, 2016 18:39
[2016-12-12 18:43] LABS: BASOPHILS # (AUTO) 0.1 10^3/uL (0.0-0.1); BASOPHILS % (AUTO) 0 % (0-10); EOSINOPHILS % (AUTO) 0 % (0-10); LYMPHOCYTES # (AUTO) 2.3 X 10^3 (1.0-4.0); LYMPHOCYTES % (AUTO) 8 % (12-44); MEAN CORPUSCULAR HEMOGLOBIN 31 PG (25-34); MEAN CORPUSCULAR HGB CONC 34 G/DL (32-36); MEAN CORPUSCULAR VOLUME 92 FL (80-99); MEAN PLATELET VOLUME 9.7 FL (7.4-10.4); MONOCYTES # (AUTO) 1.9 X 10^3 (0.0-1.0); MONOCYTES % (AUTO) 6 % (0-12); NEUTROPHILS % (AUTO) 85 % (42-75); PLATELET COUNT 390 10^3/uL (130-400); RED BLOOD COUNT 4.39 10^6/uL (4.35-5.85); WHITE BLOOD COUNT 29.4 10^3/uL (4.3-11.0)
[2016-12-12] MEDS ORDERED: methylPREDNISolone 125 MG (Solu-MEDROL) VIAL IVP ONE (18:45)
[2016-12-12] MEDS ORDERED: RT-ALBUTEROL/IPRATROPIUM 3 ML (DUONEB) VIAL INH ONE (18:45)
[2016-12-12] MEDS ORDERED: IBUPROFEN 800 MG (MOTRIN) TAB PO ONE (18:45)
[2016-12-12] MEDS ORDERED: ACETAMINOPHEN 500 MG TAB (TYLENOL) PO ONE (18:45)
[2016-12-12 18:59] LABS: BAND NEUTROPHILS 4 %; BASOPHILS % (MANUAL) 0 %; EOSINOPHILS % (MANUAL) 0 %; LYMPHOCYTES % (MANUAL) 10 %; NEUTROPHILS % (MANUAL) 84 %
[2016-12-12] MEDS ORDERED: RT-ALBUTEROL SULF 2.5 MG/3 ML PRE-MIX VIAL IH SCH (19:00)
[2016-12-12 19:04] LABS: ALANINE AMINOTRANSFERASE 13 U/L (0-55); ALBUMIN 4.2 G/DL (3.2-4.5); ANION GAP 13 MMOL/L (5-14); ASPARTATE AMINO TRANSFERASE 13 U/L (5-34); BILIRUBIN,TOTAL 0.5 MG/DL (0.1-1.0); BLOOD UREA NITROGEN 6 MG/DL (7-18); BUN/CREATININE RATIO 8; CALCIUM 9.9 MG/DL (8.5-10.1); CARBON DIOXIDE 20 MMOL/L (21-32); CHLORIDE 103 MMOL/L (98-107); CREATININE SERUM 0.75 MG/DL (0.60-1.30); GFR ESTIMATED > 60; GLUCOSE 160 MG/DL (70-105); POTASSIUM 3.8 MMOL/L (3.6-5.0); SODIUM 136 MMOL/L (135-145); TOTAL PROTEIN 7.9 G/DL (6.4-8.2)
--- NOTE | 2016-12-12 19:11 | Diagnostic Imaging Report ---
INDICATION: Cough and congestion. Fever x1 week.. TECHNIQUE: Two view chest 7:18 PM CORRELATION STUDY: None FINDINGS: The heart size, mediastinal configuration and pulmonary vasculature are within normal limits. There is patchy density in the right mid and lower lung field. Given history favors probable area of pneumonia. Likely trace effusion. Left lung is relatively clear. Multilevel degenerative change of the thoracic spine with bridging osteophytes. IMPRESSION: 1. Patchy nodular infiltrate at the right mid and lower lung field favoring probable pneumonia. However, followup imaging until resolution is recommended. Mass lesion is not excluded at this time. Dictated by: Dictated on workstation # [id number]
[2016-12-12] MEDS ORDERED: CEFEPIME INJECTION 2,000 MG in NS (IVPB) 50 ML IV ONE (20:00)
[2016-12-12] MEDS ORDERED: NS IV 1000 ML 1,000 ML IV SCH (20:00)
[2016-12-12] MEDS ORDERED: IBUPROFEN 600 MG (MOTRIN) TAB PO PRN (21:30)
[2016-12-12] MEDS: CATHETER FLUSH 10 ML SYR IV SCH (21:41)
[2016-12-12] MEDS ORDERED: ONDANSETRON 4 MG/2 ML (SDV) Z0FRAN IV PRN (21:45)
[2016-12-12] MEDS ORDERED: CATHETER FLUSH 10 ML SYR IV PRN (21:45)
[2016-12-12] MEDS ORDERED: ACETAMINOPHEN 325 MG TABLET/CAPLET (TYLENOL) PO PRN (21:45)
[2016-12-12] MEDS: LEVOFLOXACIN 750 MG/D5W 150 ML PRE-MIX IV SCH (21:50)
[2016-12-12] MEDS: NS IV 1000 ML 1,000 ML IV SCH (21:50)
[2016-12-13] VITALS: BP 110/55
[2016-12-13] MEDS ORDERED: RT-ALBUTEROL/IPRATROPIUM 3 ML (DUONEB) VIAL INH PRN (02:30)
[2016-12-13 04:00] VITALS: BP 123/61
[2016-12-13 04:37] LABS: BASOPHILS # (AUTO) 0.1 10^3/uL (0.0-0.1); BASOPHILS % (AUTO) 0 % (0-10); EOSINOPHILS % (AUTO) 0 % (0-10); LYMPHOCYTES # (AUTO) 1.8 X 10^3 (1.0-4.0); LYMPHOCYTES % (AUTO) 6 % (12-44); MEAN CORPUSCULAR HEMOGLOBIN 30 PG (25-34); MEAN CORPUSCULAR HGB CONC 33 G/DL (32-36); MEAN CORPUSCULAR VOLUME 91 FL (80-99); MEAN PLATELET VOLUME 9.6 FL (7.4-10.4); MONOCYTES % (AUTO) 4 % (0-12); NEUTROPHILS # (AUTO) 25.6 X 10^3 (1.8-7.8); NEUTROPHILS % (AUTO) 90 % (42-75); PLATELET COUNT 344 10^3/uL (130-400); RED BLOOD COUNT 3.72 10^6/uL (4.35-5.85); RED CELL DISTRIBUTION WIDTH 12.7 % (10.0-14.5); WHITE BLOOD COUNT 28.4 10^3/uL (4.3-11.0)
[2016-12-13] MEDS: NS IV 1000 ML 1,000 ML IV SCH ×3 (05:35→20:51)
[2016-12-13] MEDS: CATHETER FLUSH 10 ML SYR IV SCH ×3 (05:36→20:54)
--- NOTE | 2016-12-13 07:19 | History & Physicial ---
History of Present Illness History of Present Illness Reason for visit/HPI 56-year-old female presents to the emergency department during the evening of December 12, 2016 with a one-week history of rhinorrhea, productive cough as well as fever. She does smoke 1 pack of cigarettes per day and usually does not have any shortness of breath. She reports shortness of breath also over the past few days. She has been on cephalexin for respiratory symptoms. She was noted to have a fever of 103.2 when she reached the emergency department. Date of Admission December 12, 2016 at 19:52 I consulted on this patient on 12/13/16 07:15 Attending Physician Iggy Tejeda MD Admitting Physician Iggy Tejeda MD Consult Allergies and Home Medications Allergies Coded Allergies: No Known Drug Allergies (Unverified , 05/08/15) Home Medications Cephalexin 500 Mg Capsule, 500 MG PO TID for 7 Days, #21 Ref 0 Prescribed by: ESTEBAN GRIMES on 11/13/161836 Cetirizine HCl 10 Mg Capsule, 10 MG PO DAILY, (Reported) Gabapentin 600 Mg Tablet, 600 MG PO TID, (Reported) Lovastatin 20 Mg Tablet, 20 MG PO HS, (Reported) Tramadol HCl 50 Mg Tablet, 50 MG PO Q4H PRN for PAIN, #14 Ref 0 Prescribed by: ESTEBAN GRIMES on 11/13/161836 Past Scsvrfw-Wejilx-Erdzun Hx Patient Social History Marrital Status: Alcohol Use: Denies Use Recreational Drug Use: No Smoking Status: Current Everyday Smoker Type Used: Cigarettes Physical Abuse Screen: No Sexual Abuse: No Recent Foreign Travel: No Contact w/other who traveled: No Recent Hopitalizations: No Recent Infectious Disease Expo: No Seasonal Allergies Seasonal Allergies: No Surgeries HX Surgeries: Yes (LUNG SURG, CARPAL TERA) Surgeries: Hysterectomy Respiratory Hx Respiratory Disorders: No Cardiovascular Hx Cardiovascular Disorders: Yes Cardiac Disorders: High Cholesterol Neurological Hx Neurological Disorders: No 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 System Female 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 Disorders: Denies Genitourinary Hx Genitourinary Disorders: No Gastrointestinal Hx Gastrointestinal Disorders: No Musculoskeletal Hx Musculoskeletal Disorders: Yes Musculoskeletal Disorders: Degenerate Disk Disease, Arthritis Endocrine Hx Endocrine Disorders: No Family Medical History Significant Family History: No Pertinent Family Hx Constitutional: see HPI Physical Exam Vital Signs Vital Sign - Last 12Hours 12/12/16 12/12/16 18:30 19:38 Temp 103.2 Pulse 131 Resp 28 B/P (MAP) 146/72 Pulse Ox 90 O2 Delivery Room Air Capillary Refill : Less Than 3 Seconds General Appearance: Mild Distress Eyes: Bilateral Eye Normal Inspection HEENT: Pharynx Normal Neck: Supple Respiratory: Decreased Breath Sounds, Rhonci, Wheezing Cardiovascular: Regular Rate, Rhythm Gastrointestinal: Soft Rectal: Deferred Extremity: Normal Capillary Refill Comments NAME: [facility] REC#: [id number] PT STATUS: ADM IN : 1960 PHYSICIAN: JASON ROLON APRN ADMIT DATE: 12/12/16 Signed Date of Exam: 12/12/16 CHEST PA/LAT (2 VIEW) INDICATION: Cough and congestion. Fever x1 week.. TECHNIQUE: Two view chest 7:18 PM CORRELATION STUDY: None FINDINGS: The heart size, mediastinal configuration and pulmonary vasculature are within normal limits. There is patchy density in the right mid and lower lung field. Given history favors probable area of pneumonia. Likely trace effusion. Left lung is relatively clear. Multilevel degenerative change of the thoracic spine with bridging osteophytes. IMPRESSION: 1. Patchy nodular infiltrate at the right mid and lower lung field favoring probable pneumonia. However, followup imaging until resolution is recommended. Mass lesion is not excluded at this time. Dictated by: Dictated on workstation # [id number] Dict: 12/12/161905 Trans: 12/12/162235 Interpreted by: DENIA LUNDBERG DO Electronically signed by: DENIA LUNDBERG DO 12/12/166 Assessment/Plan Assessment and Plan 1. Right middle lobe pneumonia -patient to be admitted for IV antibiotics Levaquin and cefepime for community- acquired pneumonia -she was also started on albuterol breathing treatments. -Blood cultures are pending from the emergency department -1 dose of Solu-Medrol 125 mg given in the ED. 2. Severe sepsis- as evident by pulse, temp, WBC Problems: Admission Diagnosis 1. Right middle lobe pneumonia 2. Severe sepsis- as evident by pulse, temp, WBC Clinical Quality Measures DVT/VTE Risk/Contraindication: Risk Factor Score Per Nursin RFS Level Per Nursing on Admit: 2=Moderate IGGY TEJEDA MD December 13, 2016 07:19
[2016-12-13] MEDS ORDERED: ZOLPIDEM 5 MG (AMBIEN) TAB PO PRN (07:45)
[2016-12-13 08:00] VITALS: BP 140/66
[2016-12-13] MEDS: CEFEPIME 2 GM/NS 50 ML IVPB IV SCH ×4 (08:26→20:51)
[2016-12-13] MEDS: methylPREDNISolone 40 MG/ML (Solu-MEDROL) VIAL IV SCH ×2 (08:26→20:51)
[2016-12-13] MEDS: RT-ALBUTEROL/IPRATROPIUM 3 ML (DUONEB) VIAL INH SCH ×4 (10:30→21:06)
[2016-12-13] MEDS: NICOTINE 14 MG (NICODERM) PATCH TD SCH ×2 (11:05→22:07)
[2016-12-13] MEDS ORDERED: DEXT1TAB PO (11:15)
[2016-12-13] MEDS ORDERED: ATOR20TA49 PO (11:17)
[2016-12-13] MEDS ORDERED: [UNRECOGNIZED DRUG - CODE] PO (11:17)
[2016-12-13] MEDS ORDERED: METH500T PO (11:19)
[2016-12-13] MEDS ORDERED: ACET-789 PO (11:19)
[2016-12-13 12:00] VITALS: BP 133/67
[2016-12-13] MEDS ORDERED: RX-ACETAMINOPHEN/CODEINE TAB PPK #4 PO PRN (15:15)
[2016-12-13] MEDS ORDERED: METHOCARBAMOL 500 MG (ROBAXIN) TABLET PO PRN (15:15)
[2016-12-13 15:40] VITALS: BP 136/67
[2016-12-13] MEDS: APAP 300 MG/CODEINE 30 MG (TYLENOL #3) TAB PO PRN ×2 (16:12→22:04)
[2016-12-13 19:30] VITALS: BP 147/65
[2016-12-13] MEDS: GABAPENTIN 600 MG (NEURONTIN) TAB PO SCH (20:51)
[2016-12-13] MEDS: LEVOFLOXACIN 750 MG/D5W 150 ML PRE-MIX IV SCH (22:04)
[2016-12-14 00:45] VITALS: BP 154/64
[2016-12-14] MEDS: RT-ALBUTEROL/IPRATROPIUM 3 ML (DUONEB) VIAL INH SCH ×6 (02:53→22:08)
[2016-12-14 04:35] LABS: BASOPHILS % (AUTO) 0 % (0-10); EOSINOPHILS % (AUTO) 0 % (0-10); LYMPHOCYTES # (AUTO) 1.9 X 10^3 (1.0-4.0); LYMPHOCYTES % (AUTO) 8 % (12-44); MEAN CORPUSCULAR HEMOGLOBIN 30 PG (25-34); MEAN CORPUSCULAR HGB CONC 33 G/DL (32-36); MEAN CORPUSCULAR VOLUME 91 FL (80-99); MEAN PLATELET VOLUME 9.8 FL (7.4-10.4); MONOCYTES # (AUTO) 0.6 X 10^3 (0.0-1.0); MONOCYTES % (AUTO) 2 % (0-12); NEUTROPHILS # (AUTO) 22.5 X 10^3 (1.8-7.8); NEUTROPHILS % (AUTO) 90 % (42-75); PLATELET COUNT 387 10^3/uL (130-400); RED BLOOD COUNT 3.65 10^6/uL (4.35-5.85); WHITE BLOOD COUNT 25.1 10^3/uL (4.3-11.0)
[2016-12-14] MEDS: CATHETER FLUSH 10 ML SYR IV SCH ×3 (06:13→20:42)
[2016-12-14] MEDS: APAP 300 MG/CODEINE 30 MG (TYLENOL #3) TAB PO PRN ×3 (07:35→21:58)
--- NOTE | 2016-12-14 08:01 | Progress Note (SOAP) ---
Subjective Subjective/Events-last exam Having chest discomfort but she believes its from all her coughing. Objective Exam Vital Signs Date Time Temp Pulse Resp B/P (MAP) Pulse Ox O2 Delivery O2 Flow Rate FiO2 12/14/16 06:22 95 12/14/16 02:54 94 12/14/16 00:45 98.2 108 22 154/64 96 Room Air 12/13/16 21:06 94 12/13/16 19:30 99.2 119 20 147/65 92 Room Air 12/13/16 18:30 93 12/13/16 15:40 99.1 104 20 136/67 92 Room Air 12/13/16 14:23 98 12/13/16 12:00 99.3 109 20 133/67 93 Room Air 12/13/16 09:00 94 I & O 12/14/16 07:00 Intake Total 3160 ml Output Total 1800 ml Balance 1360 ml Capillary Refill : Less Than 3 Seconds General Appearance: No Apparent Distress Neck: Supple Respiratory: Crackles, Rhonci Cardiovascular: Regular Rate, Rhythm Results Lab Laboratory Tests 12/14/16 04:20: White Blood Count 25.1H, Red Blood Count 3.65L, Hemoglobin 11.1L, Hematocrit 33L , Mean Corpuscular Volume 91, Mean Corpuscular Hemoglobin 30, Mean Corpuscular Hemoglobin Concent 33, Red Cell Distribution Width 13.0, Platelet Count 387, Mean Platelet Volume 9.8, Neutrophils (%) (Auto) 90H, Lymphocytes (%) (Auto) 8L , Monocytes (%) (Auto) 2, Eosinophils (%) (Auto) 0, Basophils (%) (Auto) 0, Neutrophils # (Auto) 22.5H, Lymphocytes # (Auto) 1.9, Monocytes # (Auto) 0.6, Eosinophils # (Auto) 0.0, Basophils # (Auto) 0.0 Microbiology 12/12/16 Blood Culture - Preliminary, Resulted No growth Assessment/Plan Assessment/Plan Assess & Plan/Chief Complaint 1. Right middle lobe pneumonia -patient to be admitted for IV antibiotics Levaquin and cefepime for community- acquired pneumonia -she was also started on albuterol breathing treatments. -Blood cultures are pending from the emergency department -1 dose of Solu-Medrol 125 mg given in the ED. 12/14 Hold solumedrol and switch to prednisone -check CXR to fu patchy infiltrates in addition to subjective CP 2. Severe sepsis- as evident by pulse, temp, WBC Clinical Quality Measures DVT/VTE Risk/Contraindication: Risk Factor Score Per Nursin RFS Level Per Nursing on Admit: 2=Moderate ANASTASIA TEJEDA MD December 14, 2016 08:01
[2016-12-14 08:17] VITALS: BP 137/71
[2016-12-14] MEDS: predniSONE 20 MG TAB PO SCH (08:39)
[2016-12-14] MEDS: CEFEPIME 2 GM/NS 50 ML IVPB IV SCH ×4 (08:40→19:45)
[2016-12-14] MEDS: GABAPENTIN 600 MG (NEURONTIN) TAB PO SCH ×3 (08:40→19:45)
[2016-12-14] MEDS: ATORVASTATIN 20 MG (LIPITOR) TABLET PO SCH (08:40)
[2016-12-14] MEDS: guaiFENesin/CODEINE (ROBITUSSIN AC) 10ML UDC PO PRN ×3 (08:40→19:46)
[2016-12-14] MEDS: PATCH REMOVAL TP SCH (08:45)
[2016-12-14] MEDS: NICOTINE 14 MG (NICODERM) PATCH TD SCH (08:46)
--- NOTE | 2016-12-14 09:32 | Diagnostic Imaging Report ---
INDICATION: Back pain and cough. PA and lateral chest obtained at 9:33 a.m. FINDINGS: Heart is borderline in size. There are patchy infiltrates in both lungs especially in the right base. These findings are unchanged compared to the prior study. There is no pneumothorax or pleural fluid. IMPRESSION: Mild cardiomegaly. Patchy infiltrates in both lung bases right worse than left. No significant change from 12/12/16. Dictated by: Dictated on workstation # [id number]
[2016-12-14] MEDS: NS IV 1000 ML 1,000 ML IV SCH ×2 (09:41→19:45)
[2016-12-14 16:00] VITALS: BP 134/78
[2016-12-14 20:17] VITALS: BP 133/62
[2016-12-14] MEDS: LEVOFLOXACIN 750 MG/D5W 150 ML PRE-MIX IV SCH (20:42)
[2016-12-15] VITALS: BP 121/70
[2016-12-15] MEDS: RT-ALBUTEROL/IPRATROPIUM 3 ML (DUONEB) VIAL INH SCH ×6 (02:00→22:11)
[2016-12-15] MEDS: guaiFENesin/CODEINE (ROBITUSSIN AC) 10ML UDC PO PRN ×2 (02:44→17:16)
[2016-12-15] MEDS: APAP 300 MG/CODEINE 30 MG (TYLENOL #3) TAB PO PRN ×3 (06:01→21:57)
[2016-12-15] MEDS: CATHETER FLUSH 10 ML SYR IV SCH ×3 (06:01→21:45)
[2016-12-15] MEDS: predniSONE 20 MG TAB PO SCH (06:01)
[2016-12-15] MEDS ORDERED: predniSONE 20 MG TAB PO SCH (07:00)
[2016-12-15] MEDS: NS IV 1000 ML 1,000 ML IV SCH ×3 (07:39→20:44)
[2016-12-15 08:00] VITALS: BP 160/84
--- NOTE | 2016-12-15 08:07 | Progress Note (SOAP) ---
Subjective Subjective/Events-last exam Patient reports feeling better when sitting. Still has cough. Objective Exam Vital Signs Date Time Temp Pulse Resp B/P (MAP) Pulse Ox O2 Delivery O2 Flow Rate FiO2 12/15/16 07:20 94 12/15/16 02:01 94 12/15/16 00:00 98.3 91 17 121/70 95 Room Air 12/14/16 22:09 93 12/14/16 20:17 97.7 108 20 133/62 94 Room Air 12/14/16 18:24 95 12/14/16 16:00 99.6 101 18 134/78 93 Room Air 12/14/16 14:06 94 12/14/16 10:09 93 12/14/16 08:17 99.5 121 16 137/71 94 Room Air I & O 12/15/16 07:00 Intake Total 4730 ml Output Total 3000 ml Balance 1730 ml Capillary Refill : Less Than 3 Seconds General Appearance: No Apparent Distress Respiratory: Crackles, Rales (less) Cardiovascular: Regular Rate, Rhythm Extremity: No Pedal Edema Results Lab Microbiology 12/12/16 Blood Culture - Preliminary, Resulted No growth Assessment/Plan Assessment/Plan Assess & Plan/Chief Complaint 1. Right middle lobe pneumonia -patient to be admitted for IV antibiotics Levaquin and cefepime for community- acquired pneumonia -she was also started on albuterol breathing treatments. -Blood cultures are pending from the emergency department -1 dose of Solu-Medrol 125 mg given in the ED. 12/14 Hold solumedrol and switch to prednisone -check CXR to fu patchy infiltrates in addition to subjective CP 12/15 CXR revealed no significant change -decrease IVFs to 80cc/hr -check cbc 2. Severe sepsis- as evident by pulse, temp, WBC Clinical Quality Measures DVT/VTE Risk/Contraindication: Risk Factor Score Per Nursin RFS Level Per Nursing on Admit: 2=Moderate ANASTASIA TEJEDA MD December 15, 2016 08:07
[2016-12-15 08:36] LABS: BASOPHILS # (AUTO) 0.2 10^3/uL (0.0-0.1); BASOPHILS % (AUTO) 1 % (0-10); EOSINOPHILS # (AUTO) 0.1 10^3/uL (0.0-0.3); EOSINOPHILS % (AUTO) 0 % (0-10); LYMPHOCYTES % (AUTO) 16 % (12-44); MEAN CORPUSCULAR HEMOGLOBIN 31 PG (25-34); MEAN CORPUSCULAR HGB CONC 33 G/DL (32-36); MEAN CORPUSCULAR VOLUME 93 FL (80-99); MEAN PLATELET VOLUME 9.4 FL (7.4-10.4); MONOCYTES # (AUTO) 0.8 X 10^3 (0.0-1.0); MONOCYTES % (AUTO) 4 % (0-12); NEUTROPHILS # (AUTO) 15.2 X 10^3 (1.8-7.8); NEUTROPHILS % (AUTO) 79 % (42-75); PLATELET COUNT 389 10^3/uL (130-400); RED BLOOD COUNT 3.63 10^6/uL (4.35-5.85); RED CELL DISTRIBUTION WIDTH 13.4 % (10.0-14.5); WHITE BLOOD COUNT 19.2 10^3/uL (4.3-11.0)
[2016-12-15] MEDS: GABAPENTIN 600 MG (NEURONTIN) TAB PO SCH ×3 (09:33→20:45)
[2016-12-15] MEDS: PATCH REMOVAL TP SCH (09:33)
[2016-12-15] MEDS: CEFEPIME 2 GM/NS 50 ML IVPB IV SCH ×4 (09:33→20:44)
[2016-12-15] MEDS: NICOTINE 14 MG (NICODERM) PATCH TD SCH (09:33)
[2016-12-15] MEDS: ATORVASTATIN 20 MG (LIPITOR) TABLET PO SCH (09:33)
[2016-12-15 16:32] VITALS: BP 174/76
[2016-12-15] MEDS ORDERED: LEVOFLOXACIN 750 MG TAB (LEVAQUIN) PO SCH (21:00)
[2016-12-16] VITALS: BP 142/73
[2016-12-16] MEDS: RT-ALBUTEROL/IPRATROPIUM 3 ML (DUONEB) VIAL INH SCH ×2 (02:03→06:49)
[2016-12-16] MEDS: APAP 300 MG/CODEINE 30 MG (TYLENOL #3) TAB PO PRN (06:07)
[2016-12-16] MEDS: predniSONE 20 MG TAB PO SCH (06:07)
[2016-12-16] MEDS: CATHETER FLUSH 10 ML SYR IV SCH (06:08)
--- NOTE | 2016-12-16 07:22 | Discharge Summary ---
Diagnosis/Chief Complaint Date of Admission December 12, 2016 at 19:52 Date of Discharge December 16, 2016 Discharge Date: December 16, 2016 Admission Diagnosis Admission Diagnosis 1. Right middle lobe pneumonia 2. Severe sepsis- as evident by pulse, temp, WBC Discharge Diagnosis 1. Right middle lobe pneumonia 2. Severe sepsis Reason Hospital Visit 56-year-old female presents to the emergency department during the evening of December 12, 2016 with a one-week history of rhinorrhea, productive cough as well as fever. She does smoke 1 pack of cigarettes per day and usually does not have any shortness of breath. She reports shortness of breath also over the past few days. She has been on cephalexin for respiratory symptoms. She was noted to have a fever of 103.2 when she reached the emergency department. Discharge Summary Hospital Course Hospital Course patient was admitted to [facility] on the evening of December 12, 2016 with a right middle lobe pneumonia. She was started on IV fluids at 125 mL per hour. She was given IV Levaquin 750 mg in the evening daily. She was also started on cefepime due to the community acquired pneumonia. Respiratory therapy was consulted and she received albuterol breathing treatments every 4 hours. She had blood cultures obtained in the emergency department on admission since she had clinical criteria for severe sepsis. The blood cultures ultimately came back negative for growth. Also during the course of her hospital stay due to the inflammatory effect of Solu-Medrol this was given 125 mg twice daily. Ultimately on December 14 Solu-Medrol was switched to prednisone. Chest x-ray was also performed on December 14 to follow-up on the status of patchy infiltrates. There was essentially no significant change. On December for her IV fluids were decreased to 80 mL/h and it was also noted that her white blood cell count had decreased to 19,000. The elevated white blood cell count was felt to be secondary to steroid effect. By the morning of December 16 she was without any complaints. She was according to her ready to go home. She was without any labored breathing. She was switched to oral medications and released with follow-up instructions. Labs Laboratory Tests 12/14/16 04:20: White Blood Count 25.1H, Red Blood Count 3.65L, Hemoglobin 11.1L, Hematocrit 33L , Neutrophils (%) (Auto) 90H, Lymphocytes (%) (Auto) 8L, Neutrophils # (Auto) 22.5H 12/15/16 08:25: White Blood Count 19.2H, Red Blood Count 3.63L, Hemoglobin 11.1L, Hematocrit 34L , Neutrophils (%) (Auto) 79H, Neutrophils # (Auto) 15.2H, Basophils # (Auto) 0.2H CXR x 2 during coarse of stay Procedures None. Discharge Physical Examination Allergies: Coded Allergies: No Known Drug Allergies (Unverified , 05/08/15) Vitals & I&Os Vital Signs Date Time Temp Pulse Resp B/P (MAP) Pulse Ox O2 Delivery O2 Flow Rate FiO2 12/16/16 06:49 95 12/16/16 00:00 98.4 110 20 142/73 Room Air General Appearance: No Acute Distress HEENT: Mucous Memb Moist/[place] Respiratory: Normal Air Movement, Other (scattered mild rhonchi) Cardiovascular: Regular Rate Abdominal: Soft Skin: No Rashes Discharge Home Medications Reviewed and agree with Discharge Medication list on patient's Discharge Instruction sheet Instructions to Patient/Family Please see electonic discharge instructions given to patient. Clinical Quality Measures DVT/VTE Risk/Contraindication: Risk Factor Score Per Nursin RFS Level Per Nursing on Admit: 2=Moderate ANASTASIA TEJEDA MD December 16, 2016 07:21
[2016-12-16] MEDS ORDERED: PRD20T PO (07:26)
[2016-12-16] MEDS ORDERED: LEVO750T39 PO (07:26)
[2016-12-16] MEDS ORDERED: RT-ALBUINH IH (07:26)
--- NOTE | 2016-12-16 07:27 | Discharge Inst-Simple/Standard ---
Discharge Inst-Standard Discharge Medications New, Converted or Re-Newed RX: Transmitted to Pharmacy Patient Instructions/Follow Up Plan of Care/Instructions/FU: follow-up with Dr. Tejeda December 20 or December 21, 2016 Activity as Tolerated: Yes Discharge Diet: Regular Diet Return to The Hospital For: worsening cough, difficulty breathing, fever greater than 102.5 ANASTASIA TEJEDA MD December 16, 2016 07:27
[2016-12-16] MEDS: GABAPENTIN 600 MG (NEURONTIN) TAB PO SCH (08:22)
[2016-12-16] MEDS: CEFEPIME 2 GM/NS 50 ML IVPB IV SCH ×2 (08:22)
[2016-12-16] MEDS: NICOTINE 14 MG (NICODERM) PATCH TD SCH (08:22)
[2016-12-16] MEDS: ATORVASTATIN 20 MG (LIPITOR) TABLET PO SCH (08:22)
[2016-12-16] MEDS: PATCH REMOVAL TP SCH (08:23)
[2016-12-16 08:51] VITALS: BP 164/80
[2016-12-16 10:00] VITALS: BP 164/80
== END 2016-12-16 10:00 | disposition home or self-care (01) | DRG 871 ==
LOC: EDUNIT# 18:03 → ER 18:04 → 4TH 19:52
PROVIDERS: ADMIT Family Medicine; ATTEND Family Medicine
DX: A41.9 Sepsis, unspecified organism (principal); J18.9 Pneumonia, unspecified organism; E78.00 Pure hypercholesterolemia, unspecified; F17.210 Nicotine dependence, cigarettes, uncomplicated
CPT/HCPCS: 36415; 71020; 80053; 83605; 85007; 85025; 85027; 87040; 94640; 94664; 94760; 96361; 96365; 96375

== ENCOUNTER → 2017-01-10 | Outpatient (CLI) | payer OTHER ==
[~2017-01-10] MED LIST changes: +ACET-789 PO; +ATOR20TA49 PO; +DEXT1TAB PO; +LEVO750T39 PO; +METH500T PO; +RT-ALBUINH IH; +[UNRECOGNIZED DRUG - CODE] PO
--- NOTE | 2017-01-10 10:19 | Diagnostic Imaging Report ---
EXAMINATION: PA and lateral views of the chest. INDICATION: Followup right middle lobe pneumonia. COMPARISON: 12/14/2016. FINDINGS: There is background pulmonary hyperinflation and mild cardiomegaly, similar to the prior exam of 12/14/2016. There is improved right perihilar infiltrate with remaining tenting of the diaphragm in the right lung base which may relate to atelectasis or scarring. No significant remaining consolidation is seen otherwise. No effusion or pneumothorax. The mediastinum and jennifer appear unremarkable. IMPRESSION: 1. Remaining focal atelectasis or scarring in the right lung base. 2. Hyperinflated lungs. Cardiomegaly. Dictated by: Dictated on workstation # [id number]
== END ==
LOC: RAD 08:39
PROVIDERS: ATTEND Family Medicine
DX: J18.9 Pneumonia, unspecified organism (principal)
CPT/HCPCS: 71020

== ENCOUNTER 2017-01-18 23:18 | Emergency (ER) | payer SELFPAY ==
[~2017-01-18] VITALS: Ht 154.9 cm; Wt 60.8 kg
[2017-01-18] MEDS ORDERED: HYDROcodone/APAP 7.5 MG/325 MG (LORTAB, LORCET PLUS) TABLET PO STA (23:41)
[2017-01-18] MEDS ORDERED: CEPHALEXIN 250 MG (KEFLEX) CAP PO STA (23:41)
[2017-01-18] MEDS ORDERED: TETANUS,DIPTH,PERTUSS P/F (BOOSTRIX) 0.5 ML VIAL IM STA (23:41)
--- NOTE | 2017-01-19 00:06 | ED General ---
General Chief Complaint: Skin/Wound Problems Stated Complaint: PUNCTURE WOUND LEFT FOOT,RT THIGH & RT SHOULDER PA Nursing Triage Note: PT REPORTS SHE CUT LEFT HEEL ON FAN YESTERDAY. [place] LAST TETANUS SHOT. ALSO C/O RIGHT ARM PAIN ET RIGHT THIGH PAIN. OUT OF TYLENOL#3 BECAUSE SHE CANNOT GET APPT WITH PCP UNTIL BALANCE IS PAID OFF. Nursing Sepsis Screen: No Definite Risk Source of Information: Patient Exam Limitations: No Limitations History of Present Illness Time Seen by Provider: 23:35 Initial Comments Here with report of pain to her right shoulder and arm, right groin and left foot. The shoulder and arm pain is chronic from arthritis and she is out of her pain medicines. She is not sure what happened with her groin although she has restless leg syndrome and may have irritated it due to that. The left foot she has a small puncture wound to the left heel on the sole from accidentally kicking a fan when she was stretching her legs due to leg pain from the restless leg syndrome. She is unsure about her last tetanus shot. This injury occurred last night. She normally takes Tylenol 3 for her pain and she is out of that because she can't see her doctor due to insurance reasons. She is trying to get in with him this week. Timing/Duration: 24 Hours Severity: Moderate Modifying Factors: improves with Immobilization, improves with Medication Associated Systoms: No Chest Pain, No Fever/Chills, No Nausea/Vomiting, No Shortness of Air, No Weakness Allergies and Home Medications Allergies Coded Allergies: No Known Drug Allergies (Unverified , 05/08/15) Home Medications Acetaminophen with Codeine 1 Each Tablet, 1 TAB PO Q6H PRN for PAIN-MODERATE, ( Reported) Atorvastatin Calcium 20 Mg Tablet, 20 MG PO DAILY, (Reported) Gabapentin 600 Mg Tablet, 600 MG PO TID, (Reported) Methocarbamol 500 Mg Tablet, 500-1,000 MG PO Q6H PRN for MUSCLE SPASMS, ( Reported) Constitutional: see HPI, No chills, No fever Respiratory: no symptoms reported Cardiovascular: no symptoms reported Gastrointestinal: no symptoms reported Musculoskeletal: see HPI, joint pain, muscle pain, muscle cramps Skin: see HPI, other (small circular puncture type wound to the base of the left foot on the sole) Psychiatric/Neurological: No Symptoms Reported Past Kkpaknk-Vfsjbz-Zrqdht Hx Patient Social History Alcohol Use: Denies Use Recreational Drug Use: No Smoking Status: Current Everyday Smoker Type Used: Cigarettes Recent Foreign Travel: No Contact w/Someone Who Travel: No Recent Infectious Disease Expo: No Recent Hopitalizations: No Seasonal Allergies Seasonal Allergies: No Surgeries HX Surgeries: Yes (LUNG SURG, CARPAL TERA) Surgeries: Hysterectomy Respiratory Hx Respiratory Disorders: No Cardiovascular Hx Cardiac Disorders: Yes Cardiac Disorders: High Cholesterol Neurological Hx Neurological Disorders: No 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 System Female 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 Disorders: Denies 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 Genitourinary Hx Genitourinary Disorders: No Gastrointestinal Hx Gastrointestinal Disorders: No Musculoskeletal Hx Musculoskeletal Disorders: Yes Musculoskeletal Disorders: Degenerate Disk Disease, Arthritis Endocrine Hx Endocrine Disorders: No Reviewed Nursing Assessment Reviewed/Agree w Nursing PMH: Yes Family Medical History Significant Family History: No Pertinent Family Hx Physical Exam Vital Signs Vital Sign - Last 12Hours 01/18/17 23:29 Temp 98.1 Pulse 112 Resp 18 B/P (MAP) 168/81 Capillary Refill : Less Than 3 Seconds General Appearance: No Apparent Distress, WD/WN Respiratory: Lungs Clear, Normal Breath Sounds Cardiovascular: Regular Rate, Rhythm, No Murmur Gastrointestinal: Non Tender, Soft Extremity: Normal Range of Motion, No Calf Tenderness, Other (tenderness to the groin area on the right leg along the musculature in the medial posterior aspect. Tenderness full range of motion to the right shoulder.) Neurologic/Psychiatric: Alert, Oriented x3 Skin: Warm/Dry, Other (1 cm circular puncture type lesion to the sole of the left foot at the area of the heel.) Progress/Results/Core Measures Results/Orders My Orders Orders - DAREN ANGELES MD Dipht,Pertpriyanka(Acell),Tet Adult (Boostrix (01/18/17 23:41) Hydrocodone/Apap 7.5/325 Tab (Lortab 7. (01/18/17 23:41) Cephalexin Capsule (Keflex Capsule) (01/18/17 23:41) Vital Signs/I&O Vital Sign - Last 12Hours 01/18/17 23:29 Temp 98.1 Pulse 112 Resp 18 B/P (MAP) 168/81 Blood Pressure Mean: 110 Progress Note : Progress Note Seen and evaluated. Hydrocodone 7.5 mg by mouth. Keflex 500 mg by mouth. Tetanus shot updated. Discharged home with return precautions. Patient verbalize understanding instructions and agreement with plan. Small prescription for Tylenol 3 was given to outpatient to get back with her doctor. Departure Impression Impression: Primary Impression: Arthritis Additional Impressions: Strain of muscle of right groin region Puncture wound of left foot Qualified Codes: S91.332A - Puncture wound without foreign body, left foot, initial encounter Disposition: HOME, SELF-CARE Condition: Improved Departure-Patient Inst. Decision time for Depature: 00:04 Referrals: ANASTASIA TEJEDA MD (PCP/Family) Primary Care Physician Patient Instructions: Rheumatoid Arthritis (DC), Wound Care (DC) Add. Discharge Instructions: All discharge instructions reviewed with patient and/or family. Voiced understanding. Take medications as directed. Follow-up with your Dr. in a few days for recheck. Return for worse pain, swelling, weakness, breathing problems, red streaks up the leg or other concerns as needed. You will need to see your doctor for further prescription refills of your pain medication. Scripts Acetaminophen with Codeine (Tylenol with Codeine #3 Tablet) 1 Each Tablet 1 EACH PO Q6H Y for PAIN-MODERATE, #16 TAB 0 Refills Prov: DAREN ANGELES MD 01/19/17 Cephalexin (Cephalexin) 500 Mg Tablet 500 MG PO TID, #20 TAB 0 Refills Prov: DAREN ANGELES MD 01/19/17 Copy Copies To 1: ANASTASIA TEJEDA MD, TIMOTHY D MD Jan 19, 2017 00:06
[2017-01-19] MEDS ORDERED: CEPH500T PO (00:07)
[2017-01-19] MEDS ORDERED: ACET-789 PO (00:07)
[2017-01-19 00:13] VITALS: BP 154/76
== END 2017-01-19 00:13 | disposition home or self-care (01) ==
LOC: EDUNIT# 23:18 → ER 23:22
DX: S91.332A Puncture wound without foreign body, left foot, initial encounter (principal); S39.011A Strain of muscle, fascia and tendon of abdomen, initial encounter; M19.90 Unspecified osteoarthritis, unspecified site; F17.210 Nicotine dependence, cigarettes, uncomplicated; X58.XXXA Exposure to other specified factors, initial encounter
CPT/HCPCS: 90715; 99282

== ENCOUNTER → 2017-05-01 | Outpatient (CLI) | payer BC, OTHER ==
[~2017-05-01] MED LIST changes: +CEPH500T PO
--- NOTE | 2017-05-01 12:53 | Diagnostic Imaging Report ---
PROCEDURE: MRI lumbar spine. TECHNIQUE: Multiplanar, multisequence MRI of the lumbar spine was performed without contrast. INDICATION: Low back pain. FINDINGS: There is straightening of the spine curvature, which may relate to an element of muscle spasm. The vertebral body heights are preserved. The alignment of the posterior spinal line is satisfactory. There is disc desiccation at all levels with slight disc height loss at L5/S1. There is slight edema at endplates around L4/5 and L5/S1. The cauda equina and the conus medullaris appear grossly unremarkable. T12/L1: There is no disc herniation, no spinal canal or foraminal stenosis. L1/2: There is no disc herniation, no spinal canal or foraminal stenosis. L2/3: There is no disc herniation, no spinal canal or foraminal stenosis. L3/4: No disc herniation, no spinal canal or foraminal stenosis. L4/5: There is a diffuse disc bulge and ebtk-ye-uummpkpy facet joint hypertrophy. There is pwqf-lg-djnfwnwj lateral recess stenosis, more on the left side. No central canal stenosis. No foraminal stenosis. L5/S1: There is a diffuse disc bulge and mild facet hypertrophy. No central canal stenosis. There is mild lateral recess stenosis on the left and no stenosis of the lateral recess on the right side. The foramina demonstrate skfpffqs-ep-ltqzvs stenosis on the left and airm-go-fhqtzxwl stenosis on the right. IMPRESSION: There is qovjuzfu-uq-ppagzh neural foraminal stenosis at the L5/S1 level on the left side encroaching upon the existing left L5 spinal nerve. Other findings as above. Dictated by: Dictated on workstation # [id number]
== END ==
LOC: RAD 11:06
PROVIDERS: ATTEND Nurse Practitioner Community Health
DX: M48.06 Spinal stenosis, lumbar region (principal)
CPT/HCPCS: 72148

== ENCOUNTER 2017-05-19 01:40 | Inpatient (IN) | payer BC, OTHER ==
[2017-05-19] VITALS (12 sets, daily range): BP systolic 93–154; BP diastolic 41–83
[~2017-05-19] VITALS: Ht 157.5 cm; Wt 60.8 kg
[2017-05-19] MEDS ORDERED: RT-ALBUTEROL/IPRATROPIUM 3 ML (DUONEB) VIAL ONE (01:44)
[2017-05-19] MEDS ORDERED: NS IV 1000 ML 1,000 ML IV ONE (01:46)
--- NOTE | 2017-05-19 01:53 | ED Respiratory ---
General Stated Complaint: SEIZURE Source: patient Exam Limitations: no limitations History of Present Illness Time seen by provider: 01:42 Initial Comments Patient presents to ER by EMS after her family called because she was found in the bathroom shower flopping around. She says she remembers around 8:00 went for a shower and had taken a Tylenol 3 and a muscle relaxant, Robaxin. She's been for the past week with a progressively worsening productive cough. She denies any fevers but she wanted to bathe and 16 for a while to help with her cough. She does not really remember what happened after that up to the point of being brought by EMS to the ER. She says her head hurt earlier but not right now. She's had no nausea or vomiting. She does not know if she had any incontinence of stool or urine. She smokes about one pack per day and has a history of COPD but she has not been using any albuterol recently. EMS reports when they picked her up she was not postictal and had not vomited or had any incontinence. He did however put oxygen on her because her sats were in the upper 80s to low 90s on room air. She does not wear oxygen at home. After while the sister of the patient shows up and states that the patient has taken some Percocet but was probably belonging to the daughter who recently had a and brought home a young premature baby at home. She reports that the patient is also been quite sleep deprived with a recent in the family as well as baby in the household. The patient also takes Soma and stated that she only took one but the sister insists that she never takes just 1. Patient is a fairly poor historian however she states the last steroid use for COPD was probably more than 2 weeks ago. Allergies and Home Medications Allergies Coded Allergies: No Known Drug Allergies (Unverified , 05/08/15) Home Medications Acetaminophen with Codeine 1 Each Tablet, 1 TAB PO Q6H PRN for PAIN-MODERATE, ( Reported) Acetaminophen with Codeine 1 Each Tablet, 1 EACH PO Q6H PRN for PAIN-MODERATE, # 16 Ref 0 Prescribed by: DAREN ANGELES on 01/19/17 0007 Atorvastatin Calcium 20 Mg Tablet, 20 MG PO DAILY, (Reported) Cephalexin 500 Mg Tablet, 500 MG PO TID, #20 Ref 0 Prescribed by: DAREN ANGELES on 01/19/17 0007 Gabapentin 600 Mg Tablet, 600 MG PO TID, (Reported) Methocarbamol 500 Mg Tablet, 500-1,000 MG PO Q6H PRN for MUSCLE SPASMS, ( Reported) Constitutional: No chills, No diaphoresis, dizziness, No fever, No malaise, No weakness EENTM: No ear discharge, No hearing loss, No ear pain Respiratory: cough, phlegm, short of breath, wheezing Cardiovascular: No chest pain, No palpitations Gastrointestinal: No abdominal pain, No constipation, No diarrhea, No nausea Genitourinary: No discharge, No dysuria : No (postmenopausal) Musculoskeletal: No back pain, No joint pain Skin: No pruritus, No rash Psychiatric/Neurological: Denies Headache, Denies Numbness, Denies Paresthesia Past Iuuuvll-Yrdfiq-Veleqv Hx Patient Social History Alcohol Use: Denies Use Recreational Drug Use: No Smoking Status: Current Everyday Smoker Type Used: Cigarettes (1 ppd) Recent Foreign Travel: No Contact w/Someone Who Travel: No Recent Hopitalizations: No Seasonal Allergies Seasonal Allergies: No Surgeries History of Surgeries: Yes (LUNG SURG, CARPAL TERA) Surgeries: Hysterectomy Respiratory History of Respiratory Disorde: No Cardiovascular History of Cardiac Disorders: Yes Cardiac Disorders: High Cholesterol Neurological History of Neurological Disord: No 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 System Female 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 Disorders: 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 Genitourinary History of Genitourinary Disor: No Gastrointestinal History of Gastrointestinal Di: No Musculoskeletal History of Musculoskeletal Dis: Yes (SORIATIC ARTHRITIS) Musculoskeletal Disorders: Degenerate Disk Disease, Arthritis Endocrine History of Endocrine Disorders: No HEENT History of HEENT Disorders: No Cancer History of Cancer: No Psychosocial History of Psychiatric Problem: No Integumentary History of Skin or Integumenta: No Blood Transfusions History of Blood Disorders: No Family Medical History Significant Family History: No Pertinent Family Hx Physical Exam Vital Signs Vital Sign - Last 12Hours 05/19/17 05/19/17 01:40 01:57 Temp 98.2 Pulse 127 Resp 18 B/P (MAP) 93/49 Pulse Ox 95 O2 Delivery Nasal Cannula O2 Flow Rate 2.00 Capillary Refill : General Appearance: WD/WN, no apparent distress Eyes: Bilateral Eye Normal Inspection, Bilateral Eye PERRL, Bilateral Eye EOMI HEENT: PERRL/EOMI, pharynx normal Neck: non-tender, full range of motion, supple, normal inspection Respiratory: chest non-tender, no respiratory distress, no accessory muscle use , wheezing (bilaterally) Cardiovascular: normal peripheral pulses, regular rate, rhythm, no edema Gastrointestinal: normal bowel sounds, non tender, soft Extremities: normal range of motion, normal inspection, no pedal edema, normal capillary refill Neurologic/Psychiatric: alert, normal mood/affect, oriented x 3 Skin: normal color, warm/dry Focused Exam Evaluation Sepsis Stage: Sepsis Possible Source: Pulmonary Lactate Level Laboratory Tests 05/19/17 01:50: Lactic Acid Level 0.79 Time of Focused Exam: 03:34 Respiratory: Chest Non Tender, Lungs Clear, Rhonci (review bilateral), Wheezing (faint bilateral) Lactic Acid Level Laboratory Tests Test 05/19/17 01:50 Lactic Acid Level 0.79 MMOL/L (0.50-2.00) Progress/Results/Core Measures Results/Orders Lab Results Laboratory Tests Test 05/19/17 01:39 05/19/17 01:50 05/19/17 02:45 05/19/17 03:54 Range/Units White Blood Count 19.8 H 4.3-11.0 10^3/uL Red Blood Count 4.30 L 4.35-5.85 10^6/uL Hemoglobin 13.2 11.5-16.0 G/DL Hematocrit 39 35-52 % Mean Corpuscular Volume 91 80-99 FL Mean Corpuscular Hemoglobin 31 25-34 PG Mean Corpuscular Hemoglobin Concent 34 32-36 G/DL Red Cell Distribution Width 12.9 10.0-14.5 % Platelet Count 406 H 130-400 10^3/uL Mean Platelet Volume 10.1 7.4-10.4 FL Neutrophils (%) (Auto) 69 42-75 % Lymphocytes (%) (Auto) 21 12-44 % Monocytes (%) (Auto) 8 0-12 % Eosinophils (%) (Auto) 2 0-10 % Basophils (%) (Auto) 1 0-10 % Neutrophils # (Auto) 13.7 H 1.8-7.8 X 10^3 Lymphocytes # (Auto) 4.2 H 1.0-4.0 X 10^3 Monocytes # (Auto) 1.5 H 0.0-1.0 X 10^3 Eosinophils # (Auto) 0.4 H 0.0-0.3 10^3/uL Basophils # (Auto) 0.1 0.0-0.1 10^3/uL Neutrophils % (Manual) 75 % Lymphocytes % (Manual) 16 % Monocytes % (Manual) 6 % Eosinophils % (Manual) 2 % Band Neutrophils 1 % Blood Morphology Comment NORMAL Prothrombin Time 12.7 12.2-14.7 SEC INR Comment 0.9 0.8-1.4 Activated Partial Thromboplast Time 33 24-35 SEC Sodium Level 139 135-145 MMOL/L Potassium Level 3.8 3.6-5.0 MMOL/L Chloride Level 107 98-107 MMOL/L Carbon Dioxide Level 19 L 21-32 MMOL/L Anion Gap 13 5-14 MMOL/L Blood Urea Nitrogen 13 7-18 MG/DL Creatinine 0.87 0.60-1.30 MG/DL Estimat Glomerular Filtration Rate > 60 BUN/Creatinine Ratio 15 Glucose Level 127 H 70-105 MG/DL Calcium Level 10.1 8.5-10.1 MG/DL Magnesium Level 1.9 1.8-2.4 MG/DL Total Bilirubin 0.4 0.1-1.0 MG/DL Aspartate Amino Transf (AST/SGOT) 17 5-34 U/L Alanine Aminotransferase (ALT/SGPT) 14 0-55 U/L Alkaline Phosphatase 35 L 40-136 U/L Troponin I < 0.30 <0.30 NG/ML Total Protein 7.9 6.4-8.2 GM/DL Albumin 4.1 3.2-4.5 GM/DL Lactic Acid Level 0.79 0.50-2.00 MMOL/L Urine Color SINDHU H Urine Clarity CLEAR Urine pH 6 5-9 Urine Specific [place] 1.020 1.016-1.022 Urine Protein 2+ H NEGATIVE Urine Glucose (UA) NEGATIVE NEGATIVE Urine Ketones NEGATIVE NEGATIVE Urine Nitrite NEGATIVE NEGATIVE Urine Bilirubin NEGATIVE NEGATIVE Urine Urobilinogen NORMAL NORMAL MG/DL Urine Leukocyte Esterase 1+ H NEGATIVE Urine RBC (Auto) NEGATIVE NEGATIVE Urine RBC NONE /HPF Urine WBC RARE /HPF Urine Squamous Epithelial Cells RARE /HPF Urine Crystals NONE /LPF Urine Bacteria NEGATIVE /HPF Urine Casts PRESENT /LPF Urine Hyaline Casts 0-2 H /LPF Urine Mucus NEGATIVE /LPF Urine Culture Indicated NO Urine Opiates Screen POSITIVE H NEGATIVE Urine Oxycodone Screen POSITIVE H NEGATIVE Urine Methadone Screen NEGATIVE NEGATIVE Urine Propoxyphene Screen NEGATIVE NEGATIVE Urine Barbiturates Screen NEGATIVE NEGATIVE Ur Tricyclic Antidepressants Screen NEGATIVE NEGATIVE Urine Phencyclidine Screen NEGATIVE NEGATIVE Urine Amphetamines Screen NEGATIVE NEGATIVE Urine Methamphetamines Screen NEGATIVE NEGATIVE Urine Benzodiazepines Screen NEGATIVE NEGATIVE Urine Cocaine Screen NEGATIVE NEGATIVE Urine Cannabinoids Screen NEGATIVE NEGATIVE Blood Gas Puncture Site RIGHT RADIAL Blood Gas Patient Temperature 98.2 Arterial Blood pH 7.19 *L 7.37-7.43 Arterial Blood Partial Pressure CO2 55 H 35-45 MMHG Arterial Blood Partial Pressure O2 72 L 79-93 MMHG Arterial Blood HCO3 20 L 23-27 MMOL/L Arterial Blood Total CO2 22.0 21.0-31.0 MMOL/L Arterial Blood Oxygen Saturation 93 L 94-100 % Arterial Blood Base Excess -6.6 L -2.5-2.5 MMOL/L Dwight Test YES-POS Blood Gas Ventilator Setting NO Blood Gas Inspired Oxygen 2L My Orders Orders - LYDIA POOLE Cbc With Automated Diff (05/19/17 01:46) Comprehensive Metabolic Panel (05/19/17 01:46) Lactic Acid Analyzer (05/19/17 01:46) Blood Culture (05/19/17 01:46) Sputum Culture (05/19/17 01:46) Ua Culture If Indicated (05/19/17 01:46) Protime With Inr (05/19/17 01:46) Partial Thromboplastin Time (05/19/17 01:46) O2 (05/19/17 01:46) Ondansetron Injection (Zofran Injectio (05/19/17 02:00) Saline Lock/Iv-Start (05/19/17 01:46) Saline Lock/Iv-Start (05/19/17 01:46) Troponin I (05/19/17 01:46) Vital Signs Adult Sepsis Patie Q1HR (05/19/17 01:46) Remove Rings In Anticipation O (05/19/17 01:46) Saline Lock/Iv-Start (05/19/17 01:46) Ns Iv 1000 Ml (Sodium Chloride 0.9%) (05/19/17 01:46) Drug Screen Stat (Urine) (05/19/17 01:46) Magnesium (05/19/17 01:46) Albuterol/Ipra Inhalation Soln (Duoneb I (05/19/17 02:00) Svn Sm Volume Nebulizer Rt-Rfs (05/19/17 01:46) Chest Pa/Lat (2 View) (05/19/17 01:46) Albuterol/Ipra Inhalation Soln (Duoneb I (05/19/17 01:44) Ct Head/Cervical Spine Wo (05/19/17 01:53) Methylprednisolone Sod Succ (Solu-Medrol (05/19/17 02:00) Manual Differential (05/19/17 01:39) Ekg Tracing (05/19/17 02:32) Ns Iv 500 Ml (Sodium Chloride 0.9%) (05/19/17 03:35) Ceftriaxone Injection (Rocephin Injectio (05/19/17 03:45) CPAP (05/19/17 03:46) Medications Given in ED Current Medications Medications Dose Ordered Sig/Lance Route Start Time Stop Time Status Last Admin Dose Admin Albuterol/ Ipratropium 3 ml ONCE ONCE INH 05/19/17 02:00 05/19/17 02:01 DC 05/19/17 02:33 3 ML Ceftriaxone Sodium 1000 mg/ Sodium Chloride 50 ml @ 100 mls/hr ONCE ONCE IV 05/19/17 03:45 05/19/17 04:14 05/19/17 03:50 100 MLS/HR Methylprednisolone Sodium Succinate 125 mg ONCE ONCE IVP 05/19/17 02:00 05/19/17 02:01 DC 05/19/17 02:07 125 MG Ondansetron HCl 4 mg ONCE PRN IVP 05/19/17 02:00 05/19/17 02:08 DC 05/19/17 02:07 4 MG Sodium Chloride 500 ml @ 0 mls/hr Q0M ONCE IV 05/19/17 03:35 05/19/17 03:38 DC 05/19/17 03:49 0 MLS/HR Sodium Chloride 1,000 ml @ 0 mls/hr Q0M ONCE IV 05/19/17 01:46 05/19/17 01:52 DC 05/19/17 02:07 0 MLS/HR Vital Signs/I&O Vital Sign - Last 12Hours 05/19/17 05/19/17 05/19/17 01:40 01:50 01:57 Temp 98.2 Pulse 127 Resp 18 B/P (MAP) 93/49 Pulse Ox 95 95 95 O2 Delivery Nasal Cannula Nasal Cannula Nasal Cannula O2 Flow Rate 2.00 2.00 2.00 Progress Note #1: Time: 01:[address] scan of head and neck given her greater than 30 minutes of time lost to amnesia. We'll then work her up for sepsis as she is tachycardic in the 120s to 130s with no fever but definitely a productive cough and wheezing bilaterally. Very likely she has COPD exacerbation versus pneumonia with vasovagal syncope event her going for a hot shower directly after taking a Tylenol 3 and Robaxin. Progress Note #2: Time: 03:31 Progress Note Blood pressure still on the low side. We will increase the fluids it has responded marginally to first liter. Diagnostic Imaging Diagonstic Imaging: CT Plain Films/CT/US/NM/MRI: c-spine, head Comments No acute intracranial hemorrhage, mass effect, tumor. No acute osseous abnormality noted of the C-spine or head. No ICH, mass effect or edema. No evidence of acute cortical stroke. No evidence of fracture or alignment of the C-spine. No evidence of prevertebral soft tissue swelling. Reviewed: Reviewed Night Abundio Study, Reviewed by Me Diagonstic Imaging: Xray Plain Films/CT/US/NM/MRI: chest (two-view) Comments No acute cardiopulmonary processes or infiltrates. Reviewed: Reviewed by Me Departure Communication (Admissions) Time/Spoke to Admitting Phy: 03:45 Communication Discussed the case with Dr. Fawn Eddy and she agrees with antibiotic choice will see the patient. 0410: Discussed ABG findings and placing the patient on BiPAP 5/10. ABG in 1 hour. Impression Impression: Primary Impression: COPD exacerbation Additional Impressions: Pneumonia Qualified Codes: J18.9 - Pneumonia, unspecified organism Sepsis Qualified Codes: A41.9 - Sepsis, unspecified organism Hypotension Qualified Codes: I95.9 - Hypotension, unspecified Hypercarbia Acute respiratory acidosis Disposition: ADMITTED INPATIENT Condition: Stable Admissions Decision to Admit Reason: Admit from ER (General) Decision to Admit/Date: May 19, 2017 Time/Decision to Admit Time: 03:45 Departure-Patient Inst. Referrals: [facility] Copy Copies To 1: KAYLEE CARRILLO TITUS J May 19, 2017 01:53
[2017-05-19 01:56] LABS: BASOPHILS # (AUTO) 0.1 10^3/uL (0.0-0.1); BASOPHILS % (AUTO) 1 % (0-10); EOSINOPHILS # (AUTO) 0.4 10^3/uL (0.0-0.3); EOSINOPHILS % (AUTO) 2 % (0-10); LYMPHOCYTES # (AUTO) 4.2 X 10^3 (1.0-4.0); LYMPHOCYTES % (AUTO) 21 % (12-44); MEAN CORPUSCULAR HEMOGLOBIN 31 PG (25-34); MEAN CORPUSCULAR HGB CONC 34 G/DL (32-36); MEAN CORPUSCULAR VOLUME 91 FL (80-99); MEAN PLATELET VOLUME 10.1 FL (7.4-10.4); MONOCYTES # (AUTO) 1.5 X 10^3 (0.0-1.0); MONOCYTES % (AUTO) 8 % (0-12); NEUTROPHILS # (AUTO) 13.7 X 10^3 (1.8-7.8); NEUTROPHILS % (AUTO) 69 % (42-75); PLATELET COUNT 406 10^3/uL (130-400); RED CELL DISTRIBUTION WIDTH 12.9 % (10.0-14.5); WHITE BLOOD COUNT 19.8 10^3/uL (4.3-11.0)
[2017-05-19 01:59] LABS: INR 0.9 (0.8-1.4); PROTHROMBIN TIME PATIENT 12.7 SEC (12.2-14.7)
[2017-05-19] MEDS ORDERED: methylPREDNISolone 125 MG (Solu-MEDROL) VIAL IVP ONE (02:00)
[2017-05-19] MEDS ORDERED: ONDANSETRON 4 MG/2 ML (SDV) Z0FRAN IVP PRN (02:00)
[2017-05-19] MEDS ORDERED: RT-ALBUTEROL/IPRATROPIUM 3 ML (DUONEB) VIAL INH ONE (02:00)
[2017-05-19 02:10] LABS: ALANINE AMINOTRANSFERASE 14 U/L (0-55); ALBUMIN 4.1 GM/DL (3.2-4.5); ANION GAP 13 MMOL/L (5-14); ASPARTATE AMINO TRANSFERASE 17 U/L (5-34); BILIRUBIN,TOTAL 0.4 MG/DL (0.1-1.0); BLOOD UREA NITROGEN 13 MG/DL (7-18); BUN/CREATININE RATIO 15; CALCIUM 10.1 MG/DL (8.5-10.1); CARBON DIOXIDE 19 MMOL/L (21-32); CHLORIDE 107 MMOL/L (98-107); CREATININE SERUM 0.87 MG/DL (0.60-1.30); GFR ESTIMATED > 60; GLUCOSE 127 MG/DL (70-105); MAGNESIUM 1.9 MG/DL (1.8-2.4); POTASSIUM 3.8 MMOL/L (3.6-5.0); SODIUM 139 MMOL/L (135-145); TOTAL PROTEIN 7.9 GM/DL (6.4-8.2)
[2017-05-19 02:16] LABS: TROPONIN I < 0.30 NG/ML (<0.30)
[2017-05-19 02:30] LABS: BAND NEUTROPHILS 1 %; EOSINOPHILS % (MANUAL) 2 %; LYMPHOCYTES % (MANUAL) 16 %; NEUTROPHILS % (MANUAL) 75 %
[2017-05-19 02:50] LABS: BILIRUBIN,URINE NEGATIVE (NEGATIVE); KETONES,URINE NEGATIVE (NEGATIVE); LEUKOCYTE ESTERASE ,URINE 1+ (NEGATIVE); NITRITE,URINE NEGATIVE (NEGATIVE); PH,URINE 6 (5-9); PROTEIN,URINE 2+ (NEGATIVE); UROBILINOGEN,URINE NORMAL (NORMAL)
[2017-05-19 03:06] LABS: HYALINE CASTS, URINE 0-2 /LPF; SQUAMOUS EPITHELIAL CELL,UR RARE /HPF; WBC,URINE RARE /HPF
[2017-05-19] MEDS ORDERED: NS IV 500 ML 500 ML IV ONE (03:35)
[2017-05-19] MEDS ORDERED: cefTRIAXone INJECTION 1,000 MG in NS (IVPB) 50 ML IV ONE (03:45)
[2017-05-19 04:04] LABS: ABG BASE EXCESS -6.6 MMOL/L (-2.5-2.5); ABG HCO3 20 MMOL/L (23-27); ABG OXYGEN SATURATION 93 % (94-100); ABG PCO2 55 MMHG (35-45); ABG PO2 72 MMHG (79-93)
[2017-05-19 04:06] LABS: ABG PH 7.19 (7.37-7.43); ALLENS TEST YES-POS
[2017-05-19 04:07] LABS: PATIENT TEMP 98.2
[2017-05-19] MEDS ORDERED: NS IV 1000 ML 1,000 ML ONE (04:23)
[2017-05-19] MEDS ORDERED: AZITHROMYCIN INJECTION 500 MG in NS (IVPB) 250 ML IV ONE (04:49)
[2017-05-19] MEDS ORDERED: ONDANSETRON 4 MG/2 ML (SDV) Z0FRAN IV PRN (05:00)
[2017-05-19 05:19] LABS: ABG BASE EXCESS -6.6 MMOL/L (-2.5-2.5); ABG HCO3 20 MMOL/L (23-27); ABG OXYGEN SATURATION 98 % (94-100); ABG PCO2 49 MMHG (35-45); ABG PO2 102 MMHG (79-93); ABG TCO2 21.5 MMOL/L (21.0-31.0)
[2017-05-19 05:23] LABS: ABG PH 7.23 (7.37-7.43); ALLENS TEST YES-POS
[2017-05-19 05:24] LABS: PATIENT TEMP 97.1
[2017-05-19] MEDS: NS IV 1000 ML 1,000 ML IV SCH ×2 (05:24→14:29)
[2017-05-19] MEDS ORDERED: RT-ALBUTEROL/IPRATROPIUM 3 ML (DUONEB) VIAL INH PRN (05:45)
[2017-05-19 06:48] LABS: BASOPHILS % (AUTO) 0 % (0-10); EOSINOPHILS % (AUTO) 0 % (0-10); LYMPHOCYTES # (AUTO) 1.2 X 10^3 (1.0-4.0); LYMPHOCYTES % (AUTO) 5 % (12-44); MEAN CORPUSCULAR HEMOGLOBIN 31 PG (25-34); MEAN CORPUSCULAR HGB CONC 33 G/DL (32-36); MEAN CORPUSCULAR VOLUME 93 FL (80-99); MEAN PLATELET VOLUME 9.9 FL (7.4-10.4); MONOCYTES # (AUTO) 0.3 X 10^3 (0.0-1.0); MONOCYTES % (AUTO) 2 % (0-12); NEUTROPHILS % (AUTO) 93 % (42-75); PLATELET COUNT 322 10^3/uL (130-400); RED BLOOD COUNT 3.88 10^6/uL (4.35-5.85); RED CELL DISTRIBUTION WIDTH 13.1 % (10.0-14.5); WHITE BLOOD COUNT 21.6 10^3/uL (4.3-11.0)
--- NOTE | 2017-05-19 06:54 | Diagnostic Imaging Report ---
CLINICAL INDICATION: Patient with seizure, low blood pressure. EXAM: Head CT without IV contrast. Axial CT scan of the cervical spine with sagittal and coronal reformations. COMPARISON: X-ray of the cervical spine dated 10/13/2016. FINDINGS: Head CT: There is no evidence of acute cerebral infarct, intracranial hemorrhage, or gross mass effect. There is normal victoria-white matter distinction. The brain parenchymal volume appears appropriate for patient's age. There is no significant midline shift or herniation. There is no evidence of hydrocephalus. The basal cisterns are unremarkable. There is thin chronic appearing calcification involving both globes. The skull, extracranial soft tissue, and orbits are unremarkable. There is a moderate-sized air-fluid levels and moderate mucosal thickening involving both maxillary sinuses. There is large amounts of mucosal thickening involving the ethmoid sinus. There is mild mucosal thickening involving the frontal sinus and sphenoid sinus. CERVICAL SPINE: There is no acute cervical spine fracture or dislocation. There are cervical spine degenerative disease with vertebral body spurs and facet arthropathy. There is at least mild central canal narrowing at the C5-C6 level due to posterior vertebral body spurs. There is at least moderate right C5-C6 bony neural foramen narrowing due to uncinate spurs. There is no significant neck soft tissue abnormality. Visualized upper lung toney are clear. There is note of smoothly marginated expansile changes involving the left occipital condyle near the region of the jugular bulb. Unknown if this represents a mass or a vascular abnormality. This area measures roughly 10 mm x 15 mm x 14 mm (AP x Trans x CC). This area is not visualized on the comparison x-ray. IMPRESSION: 1: There is no evidence of acute intracranial process. 2: There is no acute cervical spine fracture or dislocation. 3: There is a roughly 15 mm expansile lytic area involving the left occipital condyle. It is unknown if this represents underlying bony mass or vascular abnormality. Comparison to prior brain imaging or cervical spine imaging, if available is suggested to evaluate for stability. If none is available, then MRI of the brain/skull base with and without IV contrast is suggested for further evaluation. This lesion is not mentioned on [facility] report. Otherwise, I agree with [facility] report. 4: Cervical spine degenerative disease. Dictated by: Dictated on workstation # [id number]
[2017-05-19] MEDS: RT-ALBUTEROL/IPRATROPIUM 3 ML (DUONEB) VIAL INH SCH ×4 (07:00→18:00)
[2017-05-19] MEDS ORDERED: INFLUENZA TRIvalent 2017-2018 0.5 ML/45 MCG SYR IM ONE (07:00)
[2017-05-19] MEDS ORDERED: CATHETER FLUSH 10 ML SYR IV PRN (07:00)
[2017-05-19 07:06] LABS: ANION GAP 9 MMOL/L (5-14); BLOOD UREA NITROGEN 12 MG/DL (7-18); BUN/CREATININE RATIO 16; CALCIUM 8.7 MG/DL (8.5-10.1); CARBON DIOXIDE 18 MMOL/L (21-32); CHLORIDE 111 MMOL/L (98-107); CREATININE SERUM 0.73 MG/DL (0.60-1.30); GFR ESTIMATED > 60; GLUCOSE 197 MG/DL (70-105); POTASSIUM 4.2 MMOL/L (3.6-5.0); SODIUM 138 MMOL/L (135-145)
--- NOTE | 2017-05-19 07:12 | Diagnostic Imaging Report ---
INDICATION: Cough, seizure. TECHNIQUE: Two view chest 2:27 AM CORRELATION STUDY: 01/10/2017 FINDINGS: Heart size and mediastinum generally stable. There is increased density in the right perihilar and infrahilar region may reflect atelectasis or perhaps infiltrate. Given history of seizure, early aspiration would be difficult to exclude. Remaining lung toney generally clear. Visualized osseous structures are unremarkable. IMPRESSION: 1. Question of early infiltrate, aspiration or atelectasis right infrahilar region. Followup imaging as clinically warranted. Dictated by: Dictated on workstation # [id number]
[2017-05-19 08:11] LABS: ABG BASE EXCESS -6.3 MMOL/L (-2.5-2.5); ABG HCO3 20 MMOL/L (23-27); ABG OXYGEN SATURATION 97 % (94-100); ABG PCO2 52 MMHG (35-45); ABG PO2 95 MMHG (79-93); ABG TCO2 21.9 MMOL/L (21.0-31.0)
[2017-05-19 08:15] LABS: ABG PH 7.22 (7.37-7.43); ALLENS TEST YES-POS; PATIENT TEMP 97.9
--- NOTE | 2017-05-19 08:30 | Pulmonary Consultation ---
History of Present Illness History of Present Illness Date of Consultation 05/19/17 08:23 Time Seen by Provider: 08:23 Date of Admission History of Present Illness 56yo with hx of COPD and tobacco dependance presented to ED via EMS after being found by family in shower "flopping around". PT took tylenol 3, Soma, and Robaxin prior to shower. SHe has had a progressive cough over the past week. Pt' s sister told ED that patient also took a dose of her daughter's Percocet. PT was found to have respiratory distress and ABG showing respiratory acidosis. SHe was placed on BiPAP. I am consulted for pulmonary management. Allergies and Home Medications Allergies Coded Allergies: No Known Drug Allergies (Unverified , 05/08/15) Home Medications Acetaminophen with Codeine 1 Each Tablet, 1 TAB PO Q6H PRN for PAIN-MODERATE, ( Reported) Acetaminophen with Codeine 1 Each Tablet, 1 EACH PO Q6H PRN for PAIN-MODERATE, # 16 Ref 0 Prescribed by: DAREN ANGELES on 01/19/176 Atorvastatin Calcium 20 Mg Tablet, 20 MG PO DAILY, (Reported) Cephalexin 500 Mg Tablet, 500 MG PO TID, #20 Ref 0 Prescribed by: DAREN ANGELES on 01/19/176 Gabapentin 600 Mg Tablet, 600 MG PO TID, (Reported) Methocarbamol 500 Mg Tablet, 500-1,000 MG PO Q6H PRN for MUSCLE SPASMS, ( Reported) Past [id number]-Qtxeva Hx Patient Social History Alcohol Use: Denies Use Recreational Drug Use: No Smoking Status: Current Everyday Smoker Type Used: Cigarettes Recent Foreign Travel: No Contact w/Someone Who Travel: No Recent Infectious Disease Expo: No Recent Hopitalizations: No Physical Abuse: No Sexual Abuse: No Mistreated: No Fear: No Immunizations Up To Date Tetanus Booster (TDap): Unknown Seasonal Allergies Seasonal Allergies: No Surgeries History of Surgeries: Yes (LUNG SURG, CARPAL TERA) Surgeries: Hysterectomy Respiratory History of Respiratory Disorde: Yes Respiratory Disorders: COPD Cardiovascular History of Cardiac Disorders: Yes Cardiac Disorders: High Cholesterol Neurological History of Neurological Disord: No 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 System : No Female 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 Disorders: 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, 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 Genitourinary History of Genitourinary Disor: No Gastrointestinal History of Gastrointestinal Di: No Musculoskeletal History of Musculoskeletal Dis: Yes (SORIATIC ARTHRITIS) Musculoskeletal Disorders: Degenerate Disk Disease, Arthritis Endocrine History of Endocrine Disorders: No HEENT History of HEENT Disorders: No Cancer History of Cancer: No Psychosocial History of Psychiatric Problem: No Suicide Risk Score: 0 Integumentary History of Skin or Integumenta: No Blood Transfusions History of Blood Disorders: No Family Medical History Significant Family History: No Pertinent Family Hx Review of Systems Time Seen by Provider: 08:45 Constitutional: Weakness, Malaise, No: Fever, Chills, Sweats, Other Eyes: No: Pain, Vision change, Conjunctivae inflammation, Eyelid inflammation, Other, Redness ENT: Nose congestion, No: Ear pain, Ear discharge, Nose pain, Nose discharge, Mouth pain, Mouth swelling, Throat pain, Throat swelling, Other Respiratory: Cough, Shortness of breath, SOB with excertion, Wheezing, Sputum Cardiovascular: Orthopnea, Paroxysmal Noc. Dyspnea, Lt Headedness Gastrointestinal: No: Nausea, Vomiting, Abdominal Pain, Diarrhea, Constipation , Melena, Hematochezia, Other Genitourinary: No Dysuria, No Frequency, No Incontinence, No Hematuria, No Retention, No Other Neurological: Weakness, Incoordination, Confusion Exam Exam Vital Signs Date Time Temp Pulse Resp B/P (MAP) Pulse Ox O2 Delivery O2 Flow Rate FiO2 05/19/17 07:04 86 13 98 36.00 05/19/17 07:03 Room Air 05/19/17 05:00 100 96 36 05/19/17 04:23 88 12 98 36.00 05/19/17 04:20 97.6 113 17 154/83 99 NIV Bilevel 05/19/17 04:20 NIV Bilevel 05/19/17 04:05 98.3 97 16 95 Nasal Cannula 2.00 05/19/17 01:57 98.2 127 18 93/49 95 Nasal Cannula 2.00 05/19/17 01:50 95 Nasal Cannula 2.00 05/19/17 01:40 95 Nasal Cannula 2.00 General Appearance: Anxious, Moderate Distress HEENT: Pharynx Normal Neck: Full Range of Motion, Non Tender, Supple Respiratory: Chest Non Tender, Accessory Muscle Use, Decreased Breath Sounds, Respiratory Distress Cardiovascular: Regular Rate, Rhythm, No Edema, No Gallop, No Murmur Capillary Refill: Less Than 3 Seconds Gastrointestinal: normal bowel sounds, non tender, soft Extremity: Normal Capillary Refill Neurologic/Psychiatric: Alert, Oriented x3 Skin: Normal Color, Warm/Dry Lymphatic: No Adenopathy Results Lab Laboratory Tests 05/19/17 01:39 05/19/17 06:29 Assessment/Plan Assessment/Plan Acute respiratory distress/failure -BiPAP increase to 15/5 -Titrate Fi02 -Repeat ABG at 1300 -SVNs Pneumonia with sepsis possible aspiration -IVF -Change Abx from Rocephin and azithromycin to Zosyn COPDAE -SVNS, Solumedrol 40 IV Q 6 -titrate Fi02 Oversedation secondary with Rx medications -Hold sedative meds COPD with home oxygen DVT/GI PPX -Add lovenox and pepcid, -SCDs Will transfer pt to ICU for closer monitoring. 255 Clinical Quality Measures DVT/VTE Risk/Contraindication: Risk Factor Score Per Nursin RFS Level Per Nursing on Admit: 4+=Very High TATE JACKSON DO May 19, 2017 08:30
[2017-05-19] MEDS ORDERED: PIPERACILLIN SODIUM/TAZOBACTAM 4.5 GM in NS (IVPB) 100 ML IV SCH ×2 (09:00→15:00)
[2017-05-19] MEDS ORDERED: FAMOTIDINE 20MG/2ML IV (PEPCID) IVP SCH (09:00)
[2017-05-19] MEDS ORDERED: ENOXAPARIN 40 MG/0.4 ML (LOVENOX) SYR SC SCH (09:00)
[2017-05-19] MEDS: methylPREDNISolone 40 MG/ML (Solu-MEDROL) VIAL IV SCH ×2 (09:48→16:16)
--- NOTE | 2017-05-19 10:17 | History & Physicial (CHS) ---
HPI History of Present Illness: 56yo woman with a history of COPD, tobacco abuse presented to ER via EMS after being found "flopping around" on the bathroom floor. TOday, patient endorses progressive shortness of breath and a cough over the past few days but states she has not been using albuterol. No fevers reported. Family apparently thought the episode was seizure activity, but the patient was not postictal and had not loss bowel/bladder continence durign the episode. Today, the patient denies having taken "too many medicines" or anything not prescribed to her. She states she is getting her medications from [facility]. She had previously lost her insurance and had too large of a bill at Dr Sigala's so taht she sought care at [facility] [place]. Per ER physician, patient's sister states that patient's daughter was recently prescribed Percocet after a delivery. Per clinic chart review, patient was previously on hydrocodone 10mg QID but requested T#3 specifically and was given 90 tablets. She is due for an appointment on May 22. Source: patient, RN/MD, EMS Exam Limitations: no limitations Date seen by provider: May 19, 2017 Time Seen by Provider: 09:00 Attending Physician Jenny Eddy MD PCP Iggy Sigala MD Consult Seth Ramirez DO Date of Admission May 19, 2017 at 3:54 am Home Medications Home Medications Reviewed patient Home Medication Reconciliation Form Allergies Coded Allergies: No Known Drug Allergies (Unverified , 05/08/15) WLC-Lsnpsc-Ivqnkg Hx Patient Social History Alcohol Use: Denies Use Recreational Drug Use: No Smoking Status: Current Everyday Smoker Type Used: Cigarettes Recent Foreign Travel: No Contact w/other who traveled: No Recent Hopitalizations: No Recent Infectious Disease Expo: No Physical Abuse Screen: No Sexual Abuse: No Immunizations Up To Date Tetanus Booster (TDap): Unknown Family Medical History Significant Family History: No Pertinent Family Hx Review of Systems ([facility]) Constitutional: no symptoms reported All Other Systems Reviewed Negative Unless Noted: Yes (Negative excepted noted.) Reviewed Test Results Reviewed Test Results Lab Laboratory Tests Test 05/19/17 01:39 05/19/17 01:50 05/19/17 02:45 05/19/17 03:54 Range/Units White Blood Count 19.8 H 4.3-11.0 10^3/uL Red Blood Count 4.30 L 4.35-5.85 10^6/uL Hemoglobin 13.2 11.5-16.0 G/DL Hematocrit 39 35-52 % Mean Corpuscular Volume 91 80-99 FL Mean Corpuscular Hemoglobin 31 25-34 PG Mean Corpuscular Hemoglobin Concent 34 32-36 G/DL Red Cell Distribution Width 12.9 10.0-14.5 % Platelet Count 406 H 130-400 10^3/uL Mean Platelet Volume 10.1 7.4-10.4 FL Neutrophils (%) (Auto) 69 42-75 % Lymphocytes (%) (Auto) 21 12-44 % Monocytes (%) (Auto) 8 0-12 % Eosinophils (%) (Auto) 2 0-10 % Basophils (%) (Auto) 1 0-10 % Neutrophils # (Auto) 13.7 H 1.8-7.8 X 10^3 Lymphocytes # (Auto) 4.2 H 1.0-4.0 X 10^3 Monocytes # (Auto) 1.5 H 0.0-1.0 X 10^3 Eosinophils # (Auto) 0.4 H 0.0-0.3 10^3/uL Basophils # (Auto) 0.1 0.0-0.1 10^3/uL Neutrophils % (Manual) 75 % Lymphocytes % (Manual) 16 % Monocytes % (Manual) 6 % Eosinophils % (Manual) 2 % Band Neutrophils 1 % Blood Morphology Comment NORMAL Prothrombin Time 12.7 12.2-14.7 SEC INR Comment 0.9 0.8-1.4 Activated Partial Thromboplast Time 33 24-35 SEC Sodium Level 139 135-145 MMOL/L Potassium Level 3.8 3.6-5.0 MMOL/L Chloride Level 107 98-107 MMOL/L Carbon Dioxide Level 19 L 21-32 MMOL/L Anion Gap 13 5-14 MMOL/L Blood Urea Nitrogen 13 7-18 MG/DL Creatinine 0.87 0.60-1.30 MG/DL Estimat Glomerular Filtration Rate > 60 BUN/Creatinine Ratio 15 Glucose Level 127 H 70-105 MG/DL Calcium Level 10.1 8.5-10.1 MG/DL Magnesium Level 1.9 1.8-2.4 MG/DL Total Bilirubin 0.4 0.1-1.0 MG/DL Aspartate Amino Transf (AST/SGOT) 17 5-34 U/L Alanine Aminotransferase (ALT/SGPT) 14 0-55 U/L Alkaline Phosphatase 35 L 40-136 U/L Troponin I < 0.30 <0.30 NG/ML Total Protein 7.9 6.4-8.2 GM/DL Albumin 4.1 3.2-4.5 GM/DL Lactic Acid Level 0.79 0.50-2.00 MMOL/L Urine Color SINDHU H Urine Clarity CLEAR Urine pH 6 5-9 Urine Specific [place] 1.020 1.016-1.022 Urine Protein 2+ H NEGATIVE Urine Glucose (UA) NEGATIVE NEGATIVE Urine Ketones NEGATIVE NEGATIVE Urine Nitrite NEGATIVE NEGATIVE Urine Bilirubin NEGATIVE NEGATIVE Urine Urobilinogen NORMAL NORMAL MG/DL Urine Leukocyte Esterase 1+ H NEGATIVE Urine RBC (Auto) NEGATIVE NEGATIVE Urine RBC NONE /HPF Urine WBC RARE /HPF Urine Squamous Epithelial Cells RARE /HPF Urine Crystals NONE /LPF Urine Bacteria NEGATIVE /HPF Urine Casts PRESENT /LPF Urine Hyaline Casts 0-2 H /LPF Urine Mucus NEGATIVE /LPF Urine Culture Indicated NO Urine Opiates Screen POSITIVE H NEGATIVE Urine Oxycodone Screen POSITIVE H NEGATIVE Urine Methadone Screen NEGATIVE NEGATIVE Urine Propoxyphene Screen NEGATIVE NEGATIVE Urine Barbiturates Screen NEGATIVE NEGATIVE Ur Tricyclic Antidepressants Screen NEGATIVE NEGATIVE Urine Phencyclidine Screen NEGATIVE NEGATIVE Urine Amphetamines Screen NEGATIVE NEGATIVE Urine Methamphetamines Screen NEGATIVE NEGATIVE Urine Benzodiazepines Screen NEGATIVE NEGATIVE Urine Cocaine Screen NEGATIVE NEGATIVE Urine Cannabinoids Screen NEGATIVE NEGATIVE Blood Gas Puncture Site RIGHT RADIAL Blood Gas Patient Temperature 98.2 Arterial Blood pH 7.19 *L 7.37-7.43 Arterial Blood Partial Pressure CO2 55 H 35-45 MMHG Arterial Blood Partial Pressure O2 72 L 79-93 MMHG Arterial Blood HCO3 20 L 23-27 MMOL/L Arterial Blood Total CO2 22.0 21.0-31.0 MMOL/L Arterial Blood Oxygen Saturation 93 L 94-100 % Arterial Blood Base Excess -6.6 L -2.5-2.5 MMOL/L Dwight Test YES-POS Blood Gas Ventilator Setting NO Blood Gas Inspired Oxygen 2L Test 05/19/17 05:02 05/19/17 06:29 05/19/17 08:05 Range/Units Blood Gas Puncture Site LEFT RADIAL LEFT BRAC Blood Gas Patient Temperature 97.1 97.9 Arterial Blood pH 7.23 *L 7.22 *L 7.37-7.43 Arterial Blood Partial Pressure CO2 49 H 52 H 35-45 MMHG Arterial Blood Partial Pressure O2 102 H 95 H 79-93 MMHG Arterial Blood HCO3 20 L 20 L 23-27 MMOL/L Arterial Blood Total CO2 21.5 21.9 21.0-31.0 MMOL/L Arterial Blood Oxygen Saturation 98 97 94-100 % Arterial Blood Base Excess -6.6 L -6.3 L -2.5-2.5 MMOL/L Dwight Test YES-POS YES-POS Blood Gas Ventilator Setting NO NO Blood Gas Inspired Oxygen 36% 36% BIPAP White Blood Count 21.6 H 4.3-11.0 10^3/uL Red Blood Count 3.88 L 4.35-5.85 10^6/uL Hemoglobin 12.0 11.5-16.0 G/DL Hematocrit 36 35-52 % Mean Corpuscular Volume 93 80-99 FL Mean Corpuscular Hemoglobin 31 25-34 PG Mean Corpuscular Hemoglobin Concent 33 32-36 G/DL Red Cell Distribution Width 13.1 10.0-14.5 % Platelet Count 322 130-400 10^3/uL Mean Platelet Volume 9.9 7.4-10.4 FL Neutrophils (%) (Auto) 93 H 42-75 % Lymphocytes (%) (Auto) 5 L 12-44 % Monocytes (%) (Auto) 2 0-12 % Eosinophils (%) (Auto) 0 0-10 % Basophils (%) (Auto) 0 0-10 % Neutrophils # (Auto) 20.0 H 1.8-7.8 X 10^3 Lymphocytes # (Auto) 1.2 1.0-4.0 X 10^3 Monocytes # (Auto) 0.3 0.0-1.0 X 10^3 Eosinophils # (Auto) 0.0 0.0-0.3 10^3/uL Basophils # (Auto) 0.0 0.0-0.1 10^3/uL Sodium Level 138 135-145 MMOL/L Potassium Level 4.2 3.6-5.0 MMOL/L Chloride Level 111 H 98-107 MMOL/L Carbon Dioxide Level 18 L 21-32 MMOL/L Anion Gap 9 5-14 MMOL/L Blood Urea Nitrogen 12 7-18 MG/DL Creatinine 0.73 0.60-1.30 MG/DL Estimat Glomerular Filtration Rate > 60 BUN/Creatinine Ratio 16 Glucose Level 197 H 70-105 MG/DL Calcium Level 8.7 8.5-10.1 MG/DL Radiology Date of Exam:05/19/17 CT HEAD/CERVICAL SPINE WO CLINICAL INDICATION: Patient with seizure, low blood pressure. EXAM: Head CT without IV contrast. Axial CT scan of the cervical spine with sagittal and coronal reformations. COMPARISON: X-ray of the cervical spine dated 10/13/2016. FINDINGS: Head CT: There is no evidence of acute cerebral infarct, intracranial hemorrhage, or gross mass effect. There is normal victoria-white matter distinction. The brain parenchymal volume appears appropriate for patient's age. There is no significant midline shift or herniation. There is no evidence of hydrocephalus. The basal cisterns are unremarkable. There is thin chronic appearing calcification involving both globes. The skull, extracranial soft tissue, and orbits are unremarkable. There is a moderate-sized air-fluid levels and moderate mucosal thickening involving both maxillary sinuses. There is large amounts of mucosal thickening involving the ethmoid sinus. There is mild mucosal thickening involving the frontal sinus and sphenoid sinus. CERVICAL SPINE: There is no acute cervical spine fracture or dislocation. There are cervical spine degenerative disease with vertebral body spurs and facet arthropathy. There is at least mild central canal narrowing at the C5-C6 level due to posterior vertebral body spurs. There is at least moderate right C5-C6 bony neural foramen narrowing due to uncinate spurs. There is no significant neck soft tissue abnormality. Visualized upper lung toney are clear. There is note of smoothly marginated expansile changes involving the left occipital condyle near the region of the jugular bulb. Unknown if this represents a mass or a vascular abnormality. This area measures roughly 10 mm x 15 mm x 14 mm (AP x Trans x CC). This area is not visualized on the comparison x-ray. IMPRESSION: 1: There is no evidence of acute intracranial process. 2: There is no acute cervical spine fracture or dislocation. 3: There is a roughly 15 mm expansile lytic area involving the left occipital condyle. It is unknown if this represents underlying bony mass or vascular abnormality. Comparison to prior brain imaging or cervical spine imaging, if available is suggested to evaluate for stability. If none is available, then MRI of the brain/skull base with and without IV contrast is suggested for further evaluation. This lesion is not mentioned on [facility] report. Otherwise, I agree with [facility] report. 4: Cervical spine degenerative disease. Date of Exam:05/19/17 CHEST PA/LAT (2 VIEW) INDICATION: Cough, seizure. TECHNIQUE: Two view chest 2:27 AM CORRELATION STUDY: 01/10/2017 FINDINGS: Heart size and mediastinum generally stable. There is increased density in the right perihilar and infrahilar region may reflect atelectasis or perhaps infiltrate. Given history of seizure, early aspiration would be difficult to exclude. Remaining lung toney generally clear. Visualized osseous structures are unremarkable. IMPRESSION: 1. Question of early infiltrate, aspiration or atelectasis right infrahilar region. Followup imaging as clinically warranted. Physical Exam-([facility]) Physical Exam Vital Signs VS - Last 72 Hours, by Label 05/19/17 05/19/17 05/19/17 05/19/17 01:40 01:50 01:57 04:05 Temp 98.2 98.3 Pulse 127 97 Resp 18 16 B/P (MAP) 93/49 Pulse Ox 95 95 95 95 O2 Delivery Nasal Cannula Nasal Cannula Nasal Cannula Nasal Cannula O2 Flow Rate 2.00 2.00 2.00 2.00 05/19/17 05/19/17 05/19/17 05/19/17 04:20 04:20 04:23 05:00 Temp 97.6 Pulse 113 88 100 Resp 17 12 B/P (MAP) 154/83 Pulse Ox 99 98 96 O2 Delivery NIV Bilevel NIV Bilevel O2 Flow Rate 36.00 FiO2 36 05/19/17 05/19/17 05/19/17 05/19/17 07:03 07:04 08:00 08:10 Temp 96.5 Pulse 86 81 Resp 13 16 B/P (MAP) 125/58 Pulse Ox 98 99 99 O2 Delivery Room Air NIV Bilevel NIV Bilevel O2 Flow Rate 36.00 36.00 05/19/17 10:01 Pulse 108 Resp 21 Pulse Ox 98 O2 Flow Rate 36.00 Capillary Refill : Less Than 3 Seconds General Appearance: WD/WN, mild distress HEENT: PERRL/EOMI, normal ENT inspection, pharynx normal Neck: non-tender, full range of motion, supple Respiratory: respiratory distress, decreased breath sounds, accessory muscle use Cardiovascular: regular rate, rhythm, no edema, no gallop, no JVD, no murmur Gastrointestinal: normal bowel sounds, non tender, soft Extremities: normal range of motion, non-tender, normal inspection, no pedal edema, no calf tenderness, normal capillary refill Neurologic/Psychiatric: head sulfide operator II-XII nml as tested, no motor/sensory deficits, alert, oriented x 3, depressed affect (easily tearful) Skin: normal color, warm/dry Assessment/Plan Assessment/Plan Plan COPD EXACERBATION RESPIRATORY DISTRESS CHRONIC RESPIRATORY ACIDOSIS ADM - Patient has improved but marginally after being placed on BiPAP. Have consulted Dr Ramirez who recommends transfer to the ICU as well as Zosyn for aspiration coverage and solumedrol 40mg q 6h. We will continue MAT protocol as well. She is not currently on an ICS, Spiriva, LABA, so we will add those at discharge. POLYSUBSTANCE ABUSE ADM - will hold narcotics while patient is here in house. have also advocated in his clinic chart that she no longer be prescribed controlled substances. PSORIATIC ARTHRITIS ADM - not an inpatient issue. Due to lack of insurance, Dr Eddy can see her as an outpateint to discuss if DMARD is indicated. If patient is interested, can be arranged at discharge. POSSIBLE VASCULAR LESION ON CT SCAN ADM - will order MRI today for further clarification. Diagnosis/Problems: Clinical Quality Measures DVT/VTE Risk/Contraindication: Risk Factor Score Per Nursin RFS Level Per Nursing on Admit: 4+=Very High Copy Copies To 1: JENNY DÍAZ APRN, MD May 19, 2017 10:17 am
[2017-05-19] MEDS ORDERED: GABA800T2 PO (11:16)
[2017-05-19] MEDS ORDERED: MELA5CAP PO (11:18)
[2017-05-19] MEDS ORDERED: RT-ALBUINH INH (11:20)
[2017-05-19 13:31] LABS: ABG BASE EXCESS -6.7 MMOL/L (-2.5-2.5); ABG HCO3 19 MMOL/L (23-27); ABG OXYGEN SATURATION 99 % (94-100); ABG PCO2 43 MMHG (35-45); ABG PO2 115 MMHG (79-93); ABG TCO2 20.3 MMOL/L (21.0-31.0)
[2017-05-19 13:36] LABS: ABG PH 7.27 (7.37-7.43); ALLENS TEST YES-POS; PATIENT TEMP 97.9
[2017-05-19] MEDS ORDERED: GADOBUTROL 7.5 MMOL/7.5 ML (GADAVIST) VIAL IV ONE (15:15)
--- NOTE | 2017-05-19 16:45 | Diagnostic Imaging Report ---
PROCEDURE: MR imaging of the brain with and without contrast. TECHNIQUE: Multiplanar, multisequence MR imaging of the brain was performed with and without contrast. INDICATION: Intermittent head pain. COMPARISON: No priors. FINDINGS: We note that there was some coughing motion artifact but the study is felt to be of diagnostic quality. There is a very small focus of mild diffusion restriction right paramedian qiana measuring 6 mm in diameter. This may reflect a late subacute small lacunar infarct. There is some additional chronic changes in the qiana on an old ischemic basis. There is some asymmetric volume loss along its right side. The posterior fossa and medulla are unremarkable. The midbrain unremarkable. Thalami and subthalamic nuclear regions unremarkable. The basal ganglia unremarkable. There is slight supratentorial, subcortical and periventricular white matter disease nonspecific but can be seen in the setting of small vessel disease as a chronic finding. There are no foci of intracerebral hemorrhage and no acute extra-axial fluid collection. With IV contrast administration, there was no abnormal or suspicious enhancement. There is membrane thickening involving the paranasal sinuses as well as bilateral maxillary sinus air-fluid levels likely owing to an element of acute on chronic sinus disease. There is no mastoid effusion. The orbits appeared normal. IMPRESSION: 1. Questionable findings for 6 mm subacute lacunar infarct right paramedian qiana without mass effect. There is some additional chronic pontine white matter disease and volume loss noted. 2. Slight nonspecific but chronic supratentorial, subcortical and periventricular white matter disease. 3. Findings of substantial acute on chronic paranasal sinusitis. 4. No mass, hemorrhage or abnormal enhancement. Dictated by: Dictated on workstation # [id number]
[2017-05-20] MEDS ORDERED: cefTRIAXone INJECTION 1,000 MG in NS (IVPB) 50 ML IV SCH (04:00)
[2017-05-20] MEDS ORDERED: AZITHROMYCIN 250 MG TAB (ZITHROMAX) PO SCH (09:00)
[2017-05-20] MEDS ORDERED: ATORVASTATIN 20 MG (LIPITOR) TABLET PO SCH (21:00)
== END 2017-05-19 18:50 | disposition left against medical advice (07) | DRG 191 ==
LOC: EDUNIT# 01:40 → ER 01:41 → 4TH 03:54 → ICU 09:00
PROVIDERS: ADMIT Pediatrics; ATTEND Pediatrics
DX: J44.1 Chronic obstructive pulmonary disease with (acute) exacerbation (principal); R06.03 Acute respiratory distress; E87.2 Acidosis; F11.10 Opioid abuse, uncomplicated; L40.50 Arthropathic psoriasis, unspecified
CPT/HCPCS: 36415; 70450; 70553; 71020; 72125; 80048; 80053; 80306; 81000; 82805; 83605; 83735; 84484; 85007; 85025; 85027; 85610; 85730; 87040; 93005; 94640; 94660; 96361; 96365; 96375

== ENCOUNTER → 2017-06-02 | Outpatient (CLI) | payer BC ==
[~2017-06-02] MED LIST changes: +GABA800T2 PO; +MELA5CAP PO; +RT-ALBUINH INH; +RT-ALBUTEROL SULF 2.5 MG/3 ML PRE-MIX VIAL IH ONE
--- NOTE | 2017-06-02 14:24 | Diagnostic Imaging Report ---
PROCEDURE: CT chest without contrast. TECHNIQUE: Multiple contiguous axial images were obtained through the chest without the use of intravenous contrast. INDICATION: History of pneumonia. Previous chest tube on the right. FINDINGS: Mild interstitial infiltrate remains present in the right middle lobe. No consolidated infiltrates are present. There are no masses. The lungs well-aerated. No pleural effusions or pericardial effusions. Aorta is atherosclerotic without aneurysm. No mediastinal or hilar adenopathy of pathologic size. The adrenal glands are not enlarged. Bone windows show diffuse degenerative disc disease throughout. IMPRESSION: There is some residual infiltrate, predominantly interstitial in the right middle lobe. This may represent chronic scarring versus some residual inflammatory process. Dictated by: Dictated on workstation # [id number]
== END ==
LOC: RT 13:40
PROVIDERS: ATTEND Nurse Practitioner Family
DX: F17.200 Nicotine dependence, unspecified, uncomplicated (principal); J18.9 Pneumonia, unspecified organism; R06.00 Dyspnea, unspecified
CPT/HCPCS: 71250; 94060; 94640; 94726; 94729

== ENCOUNTER 2017-07-24 08:08 | Outpatient (RCR) | payer BC ==
[~2017-07-24 08:08] MED LIST changes: -RT-ALBUTEROL SULF 2.5 MG/3 ML PRE-MIX VIAL IH ONE; +[UNRECOGNIZED DRUG - CODE] PO; -[UNRECOGNIZED DRUG - CODE] PO
== END 2017-10-22 | disposition home or self-care (01) ==
LOC: PULM 08:08
PROVIDERS: ATTEND Nurse Practitioner Family
DX: J44.9 Chronic obstructive pulmonary disease, unspecified (principal); F17.200 Nicotine dependence, unspecified, uncomplicated; R06.00 Dyspnea, unspecified; J18.9 Pneumonia, unspecified organism
CPT/HCPCS: 99211

== ENCOUNTER → 2017-10-18 | Outpatient (CLI) | payer BC ==
--- NOTE | 2017-10-18 13:34 | Diagnostic Imaging Report ---
PATIENT HISTORY: RT SHOULDER PAIN CERVICAL SPINE PAIN. TECHNIQUE: Three views of the cervical spine. COMPARISON: CT from 05/19/2017. FINDINGS: There is straightening of the cervical lordosis, with minimal reversal. No significant spondylolisthesis is seen. There is mild multilevel disc height loss. The vertebral body heights are generally preserved. No acute fracture is seen. There is multilevel facet and uncovertebral arthropathy with anterior osteophytes seen at multiple levels as well. The prevertebral soft tissues are normal. The C1-C2 alignment appears normal. IMPRESSION: [id number] multilevel degenerative changes in the cervical spine with no acute osseous abnormality seen. Dictated by: Dictated on workstation # [id number]
--- NOTE | 2017-10-18 13:39 | Diagnostic Imaging Report ---
PATIENT HISTORY: RT SHOULDER PAIN, CERVICAL SPINE PAIN. TECHNIQUE: Two views of the right shoulder. COMPARISON: None. FINDINGS: There is dense calcification adjacent to the humeral head, which most likely represents calcific tendinitis of the supraspinatus and subscapularis tendons. A tiny calcification is seen at the region of the infraspinatus tendon as well. No acute fractures seen. Alignment appears normal. There are mild degenerative changes in the acromioclavicular joint. IMPRESSION: Prominent calcifications about the right humeral head, likely calcific tendinitis. No acute osseous abnormality seen. Dictated by: Dictated on workstation # [id number]
== END ==
LOC: RAD 09:51
PROVIDERS: ATTEND Nurse Practitioner Family
DX: M47.812 Spondylosis without myelopathy or radiculopathy, cervical region (principal)
CPT/HCPCS: 72040; 73030

== ENCOUNTER 2017-11-24 12:54 | Outpatient (RCR) | payer BC | END 2017-11-24 13:36 | disposition home or self-care (01) | PROVIDERS: ATTEND Family Medicine | DX: M75.31 Calcific tendinitis of right shoulder (principal); M54.2 Cervicalgia ==

== ENCOUNTER 2018-08-05 00:37 | Inpatient (IN) | payer SELFPAY ==
[~2018-08-05] VITALS: Ht 157.5 cm; Wt 58.1 kg
[2018-08-05] VITALS (10 sets, daily range): BP systolic 101–146; BP diastolic 42–73
--- OUTSIDE RECORDS SUMMARY | 2018-08-05 00:45 | XMS REPORT | CCD ---
Author Author Heidy Almanzar MD, [facility] Address [address] [place] [address] Phone Care Team Providers Care Supervisor [facility] Name Role Phone PP Unavailable CCM Unavailable Summary Purpose Interface Exchange Insurance Providers Payer name Policy type / Coverage type Covered libertarian ID Effective Begin Date Effective End Date Blue Cross Blue Shield [facility] Blue Cross/Blue Shield [id number] Unknown Unknown Family history Brother Diagnosis Age At Onset Hypertension Unknown Diabetes mellitus Type 2 Unknown Hyperlipidemia Unknown Father Diagnosis Age At Onset Cancer Unknown Stroke Unknown Hypertension Unknown Daughter Diagnosis Age At Onset Depression Unknown Sister Diagnosis Age At Onset Diabetes mellitus Type 2 Unknown Hypertension Unknown Hyperlipidemia Unknown Arthritis Unknown Mother Diagnosis Age At Onset Hyperlipidemia Unknown Heart Attack Unknown Cancer Unknown Social History Social History Element Codes Description Effective Dates Marital status Unknown Nolan 07/10/[address]: 0241479 Former smoker 07/10/2017 Number of children Unknown 2 06/08/2017 Employment Unknown Retired 06/08/2017 Number of years using tobacco Unknown 30 - 40 06/08/2017 Number of cigarettes/day Unknown 20 (One Pack) 06/08/[address]: 268968529 Never drinks alcohol 06/08/2017 Allergies, Adverse Reactions, Alerts Allergies, Adverse Reactions, Alerts data not found Past Medical History Illness Codes Condition Status Onset Date Resolved Date Interstitial emphysema ICD-9: 518.1 ICD-10: J98.2 Active 07/10/2017 Unknown Low back pain ICD-9: 724.2 ICD-10: M54.5 Active 06/08/2017 Unknown Mixed hyperlipidemia ICD-9: 272.2 ICD-10: E78.2 Active 06/08/2017 Unknown Chronic obstructive pulmonary disease, unspecified ICD-9: 496 ICD-10: J44.9 Active 06/08/2017 Unknown Primary generalized (osteo)arthritis ICD-9: 715.09 ICD-10: M15.0 Active 06/08/2017 Unknown Radiculopathy, lumbar region ICD-9: 724.4 ICD-10: M54.16 Active 06/08/2017 Unknown Problems Condition Codes Effective Dates Condition Status Interstitial emphysema ICD-9: 518.1 ICD-10: J98.2 07/10/2017 Active Low back pain ICD-9: 724.2 ICD-10: M54.5 06/08/2017 Active Mixed hyperlipidemia ICD-9: 272.2 ICD-10: E78.2 06/08/2017 Active Chronic obstructive pulmonary disease, unspecified ICD-9: 496 ICD-10: J44.9 06/08/2017 Active Primary generalized (osteo)arthritis ICD-9: 715.09 ICD-10: M15.0 06/08/2017 Active Radiculopathy, lumbar region ICD-9: 724.4 ICD-10: M54.16 06/08/2017 Active Medications Medication Codes Instructions Start Date Stop Date Status Fill Instructions Pyridium 200 mg tablet RxNorm: 0163982 1 Tablet(s) PO TID as needed 08/31/2017 09/01/2017 Active Keflex 500 mg capsule RxNorm: 914782 1 Capsule(s) PO TID 201709/06/2017 Active Keflex 500 mg capsule RxNorm: 551583 1 Capsule(s) PO TID 201708/30/2017 Inactive Pyridium 200 mg tablet RxNorm: 2594311 1 Tablet(s) PO TID as needed 08/31/2017 08/30/2017 Inactive atorvastatin 20 mg tablet RxNorm: 864992 1 Tablet(s) PO daily 08/24/2017 09/22/2017 Active metoprolol succinate ER 25 mg tablet,extended release 24 hr RxNorm: 854333 1 Tablet(s) PO QPM 08/16/2017 03/13/2018 Active gabapentin 300 mg capsule RxNorm: 732293 2 Capsule(s) PO TID with plans to decrease by 1 capsule every 2 weeks as able to tolerate 08/1610/14/2017 Active Tylenol-Codeine #3 300 mg-30 mg tablet RxNorm: 920542 1 Tablet(s) PO Q6 as needed for pain 08/08/2017 10/06/2017 Active Bevespi Aerosphere 9 mcg-4.8 mcg HFA aerosol inhaler RxNorm: 1738357 INH 07/11/2017 No Stop Date Active methocarbamol 500 mg tablet RxNorm: 223435 1 Tablet(s) PO TID as needed 07/10/2017 No Stop Date Active gabapentin 800 mg tablet RxNorm: 603229 1 Tablet(s) PO TID 08/15/2017 Inactive Tylenol-Codeine #3 300 mg-30 mg tablet RxNorm: 208240 1 Tablet(s) PO Q6 as needed for pain 06/28/2017 07/12/2017 Inactive Chantix Continuing Month Box 1 mg tablet RxNorm: 721169 1 Tablet(s) PO UD 06/08/2017 07/13/2017 Inactive Tylenol-Codeine #3 300 mg-30 mg tablet RxNorm: 237665 1 Tablet(s) PO QID as needed 06/08/2017 06/22/2017 Inactive atorvastatin 20 mg tablet RxNorm: 145547 1 Tablet(s) PO daily 06/08/2017 07/07/2017 Inactive Robaxin 500 mg tablet RxNorm: 956429 1 Tablet(s) PO QID as needed 06/08/2017 07/07/2017 Inactive gabapentin 800 mg tablet RxNorm: 696579 1 Tablet(s) PO TID 07/04/2017 Inactive Chantix 1 mg tablet RxNorm: 908165 1 Tablet(s) PO BID No Start Date Active Bevespi Aerosphere 9 mcg-4.8 mcg HFA aerosol inhaler RxNorm: 2582412 1 INH BID No Start Date Active gabapentin 800 mg tablet RxNorm: 456469 1 Tablet(s) PO TID No Start Date 06/07/2017 Inactive atorvastatin 20 mg tablet RxNorm: 652901 1 Tablet(s) PO daily No Start Date 06/07/2017 Inactive Tylenol-Codeine #3 oral RxNorm: 940198 oral No Start Date 06/25/2017 Inactive Medication Administered No Medication Administered data Immunizations No Immunization data Assessments Condition Codes Effective Dates Interstitial emphysema ICD-10: J98.2 ICD-9: 518.1 08/16/2017 Mixed hyperlipidemia ICD-10: E78.2 ICD-9: 272.2 08/16/2017 Low back pain ICD-10: M54.5 ICD-9: 724.2 08/16/2017 Radiculopathy, lumbar region ICD-10: M54.16 ICD-9: 724.4 06/08/2017 Chronic obstructive pulmonary disease, unspecified ICD-10: J44.9 ICD-9: 496 06/08/2017 Primary generalized (osteo)arthritis ICD-10: M15.0 ICD-9: 715.09 06/08/2017 Reason For Visit Reason For Visit Effective Dates Notes shortness of breath 08/16/2017 shortness of breath 07/10/2017 cough 06/08/2017 Results No Results data Review of Systems System Result Effective Dates Constitutional No recent illness 2017 Constitutional No chills 08/16/2017 Constitutional No diaphoresis 08/16/2017 Constitutional No fever 08/16/2017 Eyes No blindness 08/16/2017 Ears/Nose/Throat/Neck nasal allergies 10/2017 Ears/Nose/Throat/Neck No nasal discharge 08/16/2017 Cardiovascular No chest pain/pressure 10/2017 Respiratory No chest congestion 2017 Respiratory cough 08/16/2017 Respiratory dyspnea on exertion 2017 Respiratory No dyspnea 08/16/2017 Gastrointestinal No abdominal pain 2017 Gastrointestinal No constipation 2017 Gastrointestinal No diarrhea 08/16/2017 Gastrointestinal No nausea 08/16/2017 Gastrointestinal No vomiting 08/16/2017 Musculoskeletal stiffness 08/16/2017 Musculoskeletal arthralgia(s) 08/16/2017 Musculoskeletal back pain 08/16/2017 Dermatologic No rash 08/16/2017 Neurologic No alteration of consciousness 08/16/2017 Neurologic No mental status change 2017 Psychiatric No anxiety 08/16/2017 Psychiatric No depression 08/16/2017 Constitutional No recent illness 2016 Constitutional No chills 07/10/2017 Constitutional No diaphoresis 07/10/2017 Constitutional No fever 07/10/2017 Eyes No blindness 07/10/2017 Ears/Nose/Throat/Neck nasal allergies Ears/Nose/Throat/Neck No nasal discharge 07/10/2017 Cardiovascular No chest pain/pressure Respiratory No chest congestion 2016 Respiratory cough 07/10/2017 Respiratory dyspnea on exertion 2016 Respiratory No dyspnea 07/10/2017 Gastrointestinal No abdominal pain 2016 Gastrointestinal No constipation 2016 Gastrointestinal No diarrhea 07/10/2017 Gastrointestinal No nausea 07/10/2017 Gastrointestinal No vomiting 07/10/2017 Musculoskeletal arthralgia(s) 07/10/2017 Musculoskeletal back pain 07/10/2017 Dermatologic No rash 07/10/2017 Neurologic No alteration of consciousness 07/10/2017 Neurologic No mental status change 2016 Psychiatric No anxiety 07/10/2017 Psychiatric No depression 07/10/2017 Musculoskeletal stiffness 07/10/2017 Constitutional No recent illness 2016 Constitutional No chills 06/08/2017 Constitutional No diaphoresis 06/08/2017 Constitutional No fever 06/08/2017 Eyes No eye erythema 06/08/2017 Ears/Nose/Throat/Neck nasal allergies Ears/Nose/Throat/Neck No nasal discharge 06/08/2017 Cardiovascular No chest pain/pressure Respiratory cough 06/08/2017 Respiratory No dyspnea 06/08/2017 Respiratory No chest congestion 2016 Respiratory dyspnea on exertion 2016 Gastrointestinal No abdominal pain 2016 Gastrointestinal No constipation 2016 Gastrointestinal No diarrhea 06/08/2017 Gastrointestinal No vomiting 06/08/2017 Gastrointestinal No nausea 06/08/2017 Musculoskeletal back pain 06/08/2017 Musculoskeletal arthralgia(s) 06/08/2017 Dermatologic No rash 06/08/2017 Neurologic No alteration of consciousness 06/08/2017 Neurologic No mental status change 2016 Physical Exam Exam Name System Name Item Name Status Result Effective Dates Notes Full Exam - General 1994 Constitutional general appearance Overall: well developed 08/16/2017 None Full Exam - General 1994 Constitutional general appearance Overall: in no acute distress 08/16/2017 None Full Exam - General 1994 Constitutional general appearance Overall: well nourished 08/16/2017 None Full Exam - General 1994 Eyes conjunctiva /eyelids Overall: conjunctiva clear 08/16/2017 None Full Exam - General 1994 Eyes conjunctiva /eyelids Overall: eyelids normal 08/16/2017 None Full Exam - General 1994 Eyes pupils and irises Overall: pupils equal, round, reactive to light and accomodation 08/16/2017 None Full Exam - General 1994 Ears/Nose/Throat otoscopic exam Overall: tympanic membranes clear 08/16/2017 None Full Exam - General 1994 Ears/Nose/Throat otoscopic exam External auditory canal: partial cerumen occlusion 08/16/2017 None Full Exam - General 1994 Ears/Nose/Throat lips/teeth/gingiva Overall: benign lips 08/16/2017 None Full Exam - General 1994 Ears/Nose/Throat oral cavity/pharynx/larynx Overall: oral mucosa clear 08/16/2017 None Full Exam - General 1994 Ears/Nose/Throat oral cavity/pharynx/larynx Overall: oropharyngeal mucosa clear 08/16/2017 None Full Exam - General 1994 Respiratory auscultation Diffuse: diminished 08/16/2017 None Full Exam - General 1994 Respiratory respiratory effort/rhythm Overall: no retractions 08/16/2017 None Full Exam - General 1994 Respiratory respiratory effort/rhythm Overall: normal rate 08/16/2017 None Full Exam - General 1994 Cardiovascular auscultation of heart Overall: regular rate 08/16/2017 None Full Exam - General 1994 Cardiovascular auscultation of heart Overall: normal heart sounds 08/16/2017 None Full Exam - General 1994 Abdomen abdominal exam Overall: no tenderness 08/16/2017 None Full Exam - General 1994 Abdomen abdominal exam Overall: normal bowel sounds 08/16/2017 None Full Exam - General 1994 Lymphatic neck nodes Overall: anterior cervical chain benign 08/16/2017 None Full Exam - General 1994 Lymphatic neck nodes Overall: posterior cervical chain benign 08/16/2017 None Full Exam - General 1994 Musculoskeletal spine, ribs and pelvis Spine: tender @ lumbar spine 08/16/2017 None Full Exam - General 1994 Musculoskeletal head and neck Overall: head atraumatic 08/16/2017 None Full Exam - General 1994 Neurologic cranial nerves Overall: crainial nerves 2 - 12 grossly intact 08/16/2017 None Full Exam - General 1994 Psychiatric orientation/consciousness Overall: oriented to person, place and time 08/16/2017 None Full Exam - General 1994 Psychiatric mood and affect Overall: normal mood and affect 08/16/2017 None Full Exam - General 1994 Constitutional general appearance Overall: well developed 07/10/2017 None Full Exam - General 1994 Constitutional general appearance Overall: in no acute distress 07/10/2017 None Full Exam - General 1994 Constitutional general appearance Overall: well nourished 07/10/2017 None Full Exam - General 1994 Eyes conjunctiva /eyelids Overall: conjunctiva clear 07/10/2017 None Full Exam - General 1994 Eyes conjunctiva /eyelids Overall: eyelids normal 07/10/2017 None Full Exam - General 1994 Eyes pupils and irises Overall: pupils equal, round, reactive to light and accomodation 07/10/2017 None Full Exam - General 1994 Ears/Nose/Throat otoscopic exam Overall: tympanic membranes clear 07/10/2017 None Full Exam - General 1994 Ears/Nose/Throat otoscopic exam External auditory canal: partial cerumen occlusion 07/10/2017 None Full Exam - General 1994 Ears/Nose/Throat lips/teeth/gingiva Overall: benign lips 07/10/2017 None Full Exam - General 1994 Ears/Nose/Throat oral cavity/pharynx/larynx Overall: oral mucosa clear 07/10/2017 None Full Exam - General 1994 Ears/Nose/Throat oral cavity/pharynx/larynx Overall: oropharyngeal mucosa clear 07/10/2017 None Full Exam - General 1994 Respiratory auscultation Diffuse: diminished 07/10/2017 None Full Exam - General 1994 Respiratory respiratory effort/rhythm Overall: no retractions 07/10/2017 None Full Exam - General 1994 Respiratory respiratory effort/rhythm Overall: normal rate 07/10/2017 None Full Exam - General 1994 Cardiovascular auscultation of heart Overall: regular rate 07/10/2017 None Full Exam - General 1994 Cardiovascular auscultation of heart Overall: normal heart sounds 07/10/2017 None Full Exam - General 1994 Abdomen abdominal exam Overall: no tenderness 07/10/2017 None Full Exam - General 1994 Abdomen abdominal exam Overall: normal bowel sounds 07/10/2017 None Full Exam - General 1994 Lymphatic neck nodes Overall: anterior cervical chain benign 07/10/2017 None Full Exam - General 1994 Lymphatic neck nodes Overall: posterior cervical chain benign 07/10/2017 None Full Exam - General 1994 Musculoskeletal spine, ribs and pelvis Spine: tender @ lumbar spine 07/10/2017 None Full Exam - General 1994 Musculoskeletal head and neck Overall: head atraumatic 07/10/2017 None Full Exam - General 1994 Neurologic cranial nerves Overall: crainial nerves 2 - 12 grossly intact 07/10/2017 None Full Exam - General 1994 Psychiatric orientation/consciousness Overall: oriented to person, place and time 07/10/2017 None Full Exam - General 1994 Psychiatric mood and affect Overall: normal mood and affect 07/10/2017 None Full Exam - General 1994 Constitutional general appearance Overall: well developed 06/08/2017 None Full Exam - General 1994 Constitutional general appearance Overall: in no acute distress 06/08/2017 None Full Exam - General 1994 Constitutional general appearance Overall: well nourished 06/08/2017 None Full Exam - General 1994 Eyes conjunctiva /eyelids Overall: conjunctiva clear 06/08/2017 None Full Exam - General 1994 Eyes conjunctiva /eyelids Overall: eyelids normal 06/08/2017 None Full Exam - General 1994 Eyes pupils and irises Overall: pupils equal, round, reactive to light and accomodation 06/08/2017 None Full Exam - General 1994 Ears/Nose/Throat otoscopic exam External auditory canal: partial cerumen occlusion 06/08/2017 None Full Exam - General 1994 Ears/Nose/Throat otoscopic exam Overall: tympanic membranes clear 06/08/2017 None Full Exam - General 1994 Ears/Nose/Throat lips/teeth/gingiva Overall: benign lips 06/08/2017 None Full Exam - General 1994 Ears/Nose/Throat oral cavity/pharynx/larynx Overall: oral mucosa clear 06/08/2017 None Full Exam - General 1994 Ears/Nose/Throat oral cavity/pharynx/larynx Overall: oropharyngeal mucosa clear 06/08/2017 None Full Exam - General 1994 Respiratory respiratory effort/rhythm Overall: no retractions 06/08/2017 None Full Exam - General 1994 Respiratory respiratory effort/rhythm Overall: normal rate 06/08/2017 None Full Exam - General 1994 Respiratory auscultation Diffuse: diminished 06/08/2017 None Full Exam - General 1994 Cardiovascular auscultation of heart Overall: regular rate 06/08/2017 None Full Exam - General 1994 Cardiovascular auscultation of heart Overall: normal heart sounds 06/08/2017 None Full Exam - General 1994 Abdomen abdominal exam Overall: normal bowel sounds 06/08/2017 None Full Exam - General 1994 Abdomen abdominal exam Overall: no tenderness 06/08/2017 None Full Exam - General 1994 Lymphatic neck nodes Overall: posterior cervical chain benign 06/08/2017 None Full Exam - General 1994 Lymphatic neck nodes Overall: anterior cervical chain benign 06/08/2017 None Full Exam - General 1994 Musculoskeletal spine, ribs and pelvis Spine: tender @ lumbar spine 06/08/2017 None Full Exam - General 1994 Musculoskeletal head and neck Overall: head atraumatic 06/08/2017 None Full Exam - General 1994 Neurologic cranial nerves Overall: crainial nerves 2 - 12 grossly intact 06/08/2017 None Full Exam - General 1994 Psychiatric orientation/consciousness Overall: oriented to person, place and time 06/08/2017 None Full Exam - General 1994 Psychiatric mood and affect Overall: normal mood and affect 06/08/2017 None Procedures Procedure Codes Date 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-[address]: 799961063 CPT-4: G0436 07/10/2017 Vital Signs Date Vital 08/16/2017 Blood Pressure 1: 164/82 Code : 8480-6 Blood Pressure 1: 180/86 Code: 8480-6 BMI: 26.5 Code: 87133-2 Heart Rate 1: 96 bpm Height: 5'2" SpO2: 96% Weight: 145 lbs 07/10/2017 Blood Pressure 1: 144/78 Code : 8480-6 BMI: 25.8 Code : 22069-4 Heart Rate 1 : 104 bpm Height: 5'2" SpO2: 98% Weight: 141 lbs 06/08/2017 Blood Pressure 1: 134/80 Code : 8480-6 BMI: 25.2 Code : 99835-7 Heart Rate 1 : 99 bpm Height: 5'2" SpO2: 97% Weight: 138 lbs Functional Status No Functional Status data History of Present Illness Symptom Name Status Result Effective Date Notes shortness of breath Quality acute 08/16/2017 None shortness of breath Quality breathlessness 08/16/2017 None shortness of breath Quality intermittent 08/16/2017 None shortness of breath Onset and Resolution ongoing 08/16/2017 None shortness of breath Onset of Symptom 6 months ago 08/16/2017 since January 2017 shortness of breath Significant Medical Conditions pulmonary disease 08/16/2017 None neck pain Location Cervical spine 08/16/2017 None neck pain Quality chronic 08/16/2017 None neck pain Quality intermittent 08/16/2017 None neck pain Onset and Resolution ongoing 08/16/2017 None neck pain Alleviating Factors medication 08/16/2017 None neck pain Frequency of Episodes decreasing 08/16/2017 None shortness of breath Quality acute 07/10/2017 None shortness of breath Onset and Resolution ongoing 07/10/2017 None shortness of breath Quality intermittent 07/10/2017 None shortness of breath Quality breathlessness 07/10/2017 None shortness of breath Quality stable 07/10/2017 None shortness of breath Onset of Symptom 5 months ago 07/10/2017 since January 2017 shortness of breath Frequency of Episodes decreasing 07/10/2017 None shortness of breath Significant Medical Conditions pulmonary disease 07/10/2017 None shortness of breath Pertinent Findings lethargy 07/10/2017 None neck pain Location Cervical spine 07/10/2017 None neck pain Onset and Resolution ongoing 07/10/2017 None neck pain Quality intermittent 07/10/2017 None neck pain Quality chronic 07/10/2017 None neck pain Quality worsening 07/10/2017 over the last week neck pain Frequency of Episodes daily 07/10/2017 None neck pain Alleviating Factors medication 07/10/2017 None cough Location in the lung 06/08/2017 None cough Quality chronic 06/08/2017 None cough Onset and Resolution ongoing 06/08/2017 None cough Significant Medical Conditions pulmonary disease 06/08/2017 None cough Pertinent Findings Denies fever 06/08/2017 None back pain Location lumbar-sacral spine 06/08/2017 None back pain Quality chronic 06/08/2017 None back pain Pertinent Findings Denies fever 06/08/2017 None Advance Directives No Advance Directive data Encounters Encounter Performer Location Codes Date [id number]) [id number] EST. PATIENT, LEVEL IV Diagnosis: Interstitial emphysema[ICD10: J98.2] Diagnosis: Mixed hyperlipidemia[ICD10: E78.2] Diagnosis: Low back pain[ICD10: M54.5] [facility] CPT- 4: 71858 08/16/2017 [id number]) [id number] EST. PATIENT, LEVEL IV Diagnosis: Mixed hyperlipidemia[ICD10: E78.2] Diagnosis: Interstitial emphysema[ICD10: J98.2] [facility] CPT-4: 50172 07/10/2017 OFFICE VISIT, NEW - LEVEL 4 Diagnosis: Low back pain[ICD10: M54.5] Diagnosis: Radiculopathy, lumbar region[ICD10: M54.16] Diagnosis: Chronic obstructive pulmonary disease, unspecified[ICD10: J44.9] Diagnosis: Primary generalized (osteo)arthritis[ICD10: M15.0] Diagnosis: Mixed hyperlipidemia[ICD10: E78.2] [facility] CPT-4: 03760 06/08/2017 Plan of Care Planned Activity Notes Codes Status Date Visit Plan: COPD/Interstitial lung disease- pt taking bevespi - should be going to pulmonary rehab soon if her insurance will cover the treatments. Hypertension - well controlled - continue with current medications, continue with no added salt diet. Pt has been encouraged to exercise daily. The pt has been advised to call the office if there are any acute concerns about change in blood pressure readings at home. Peripheral neuropathy - continue with gabapentin. 08/16/2017 App[facility]ment: [phone] [id number] ([facility] min) Moderate 08/16/2017 Patient Education: Patient Medication Summary Completed 08/16/2017 Visit Plan: Hyperlipidemia - pt has been counseled about appropriate diet, exercise, and need for low fat food choices. I have discussed the need for the patient to take medications as prescribed. If the patient has negative side effects from the medication, they are to CALL the office and not abruptly discontinue the medication without discussion with a practitioner in the office. We will check labs in 3-6 months for follow up on the patient's chronic medical problem and to assure normal liver response to medications. Emphysema - symptoms stable on the new medication bevespi - but pt is not taking it twice daily as directed. I have discussed with the patient - bevespi samples - lost # [id number], exp 03/201807/10/2017 Appointment: Tamia Fonseca WPtel: [id number] (30 min) Complex 07/10/2017 Patient Education: Patient Medication Summary Completed 07/10/2017 Patient Education: Smoking and Tobacco Addiction Completed 07/10/2017 Patient Education: Obesity Completed 07/10/2017 Visit Plan: Chronic Back pain - the patient was counseled to always first attempt to use modalities other than pain medication for alleviation of the muscle spasms and pain. The patient was also encouraged to continue with back exercises as previously directed. Pt is to use pain medication as directed. If pain medications are used inappropriately or early refills are requested, the patient understands that is a breech of trust/ contract and could result in the patient's termination from this medical practice. COPD - chronic problem for this patient. We have reviewed chronic treatment strategy, symptom control, and plans for acute exacerbations. No changes today to the current treatment plan as the patient is stable, monitor for acute changes. Arthritis- occasionally uncontrolled symptoms- recommend pt to take antiinflammatory as directed for pain control. Use tylenol for break through pain symptoms. Hyperlipidemia - pt has been counseled about appropriate diet, exercise, and need for low fat food choices. I have discussed the need for the patient to take medications as prescribed. If the patient has negative side effects from the medication, they are to CALL the office and not abruptly discontinue the medication without discussion with a practitioner in the office. We will check labs in 3-6 months for follow up on the patient's chronic medical problem and to assure normal liver response to medications. 06/08/2017 Appointment: Heidy Almanzra WPtel: [address] [place], [place] [id number] New Patient 06/08/2017 Patient Education: Patient Medication Summary Completed 06/08/2017 Patient Education: Smoking and Tobacco Addiction Completed 06/08/2017 Patient Education: Obesity Completed 06/08/2017 Instructions Comment . Chronic Back pain - the patient was counseled to always first attempt to use modalities other than pain medication for alleviation of the muscle spasms and pain. The patient was also encouraged to continue with back exercises as previously directed. Pt is to use pain medication as directed. If pain medications are used inappropriately or early refills are requested, the patient understands that is a breech of trust/contract and could result in the patient's termination from this medical practice. COPD - chronic problem for this patient. We have reviewed chronic treatment strategy, symptom control, and plans for acute exacerbations. No changes today to the current treatment plan as the patient is stable, monitor for acute changes. Arthritis- occasionally uncontrolled symptoms- recommend pt to take antiinflammatory as directed for pain control. Use tylenol for break through pain symptoms. Hyperlipidemia - pt has been counseled about appropriate diet, exercise, and need for low fat food choices. I have discussed the need for the patient to take medications as prescribed. If the patient has negative side effects from the medication, they are to CALL the office and not abruptly discontinue the medication without discussion with a practitioner in the office. We will check labs in 3-6 months for follow up on the patient's chronic medical problem and to assure normal liver response to medications. 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 Fonseca in [place] Dr. Franklyn Orantes - [place] . COPD/Interstitial lung disease- pt taking bevespi - should be going to pulmonary rehab soon if her insurance will cover the treatments. Hypertension - well controlled - continue with current medications, continue with no added salt diet. Pt has been encouraged to exercise daily. The pt has been advised to call the office if there are any acute concerns about change in blood pressure readings at home. Peripheral neuropathy - continue with gabapentin. . Hyperlipidemia - pt has been counseled about appropriate diet, exercise, and need for low fat food choices. I have discussed the need for the patient to take medications as prescribed. If the patient has negative side effects from the medication, they are to CALL the office and not abruptly discontinue the medication without discussion with a practitioner in the office. We will check labs in 3-6 months for follow up on the patient's chronic medical problem and to assure normal liver response to medications. Emphysema - symptoms stable on the new medication bevespi - but pt is not taking it twice daily as directed. I have discussed with the patient - bevespi samples - lost # [id number], exp 03/2018
--- OUTSIDE RECORDS SUMMARY | 2018-08-05 00:45 | XMS REPORT | CCD ---
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 Name Role Phone PP Unavailable CCM Unavailable Summary Purpose Interface Exchange Insurance Providers Payer name Policy type / Coverage type Covered republican ID Effective Begin Date Effective End Date Blue Cross Blue Shield [facility] Blue Cross/Blue Shield [id number] Unknown Unknown Family history Brother Diagnosis Age [...] Unknown Nolan 07/10/[address]: 7809365 Former smoker 07/10/2017 Number of children Unknown 2 06/08/2017 Employment Unknown Retired 06/08/2017 Number of years using tobacco Unknown 30 - 40 06/08/2017 Number of cigarettes/day Unknown 20 (One Pack) 06/08/[address]: 552572490 Never drinks alcohol 06/08/2017 Allergies, Adverse Reactions, Alerts Substance Reaction Codes Entered Date Inactivated Date Status * NO KNOWN DRUG ALLERGIES Unknown 07/10/2017 No Inactive Date Active Past Medical History Illness Codes Condition Status Onset Date Resolved Date Sciatica Unknown Active 02/26/2018 Unknown Low back pain ICD-9: 724.2 ICD-10: M54.5 Active 06/08/2017 Unknown Sciatica, left side ICD-9: 724.3 ICD-10: M54.32 Active 02/26/2018 Unknown Pain in right shoulder ICD-9: 719.41 ICD-10: M25.511 Active 10/17/2017 Unknown Primary generalized (osteo)arthritis ICD-9: 715.09 ICD-10: M15.0 Active 06/08/2017 Unknown Interstitial emphysema ICD-9: 518.1 ICD-10: J98.2 Active 07/10/2017 Unknown Mixed hyperlipidemia ICD-9: 272.2 ICD-10: E78.2 Active 06/08/2017 Unknown Dysuria ICD-9: 788.1 ICD-10: R30.0 Active 08/31/2017 Unknown Chronic obstructive pulmonary disease, unspecified ICD-9: 496 ICD-10: J44.9 Active 06/08/2017 Unknown Radiculopathy, lumbar region ICD-9: 724.4 ICD-10: M54.16 Active 06/08/2017 Unknown Problems Condition Codes Effective Dates Condition Status Sciatica Unknown 02/26/2018 Active Low back pain ICD-9: 724.2 ICD-10: M54.5 06/08/2017 Active Sciatica, left side ICD-9: 724.3 ICD-10: M54.32 02/26/2018 Active Pain in right shoulder ICD-9: 719.41 ICD-10: M25.511 10/17/2017 Active Primary generalized (osteo)arthritis ICD-9: 715.09 ICD-10: M15.0 06/08/2017 Active Interstitial emphysema ICD-9: 518.1 ICD-10: J98.2 07/10/2017 Active Mixed hyperlipidemia ICD-9: 272.2 ICD-10: E78.2 06/08/2017 Active Dysuria ICD-9: 788.1 ICD-10: R30.0 08/31/2017 Active Chronic obstructive pulmonary disease, unspecified ICD-9: 496 ICD-10: J44.9 06/08/2017 Active Radiculopathy, lumbar region ICD-9: 724.4 ICD-10: M54.16 06/08/2017 Active Medications Medication Codes Instructions Start Date Stop Date Status Fill Instructions Tylenol-Codeine #3 300 mg-30 mg tablet RxNorm: 726767 1 Tablet(s) PO Q6 as needed for pain 04/04/2018 05/03/2018 Active gabapentin 300 mg capsule RxNorm: 088506 TAKE 3 CAPSULES BY MOUTH THREE TIMES DAILY 03/19/2018 04/17/2018 Active Generic For:NEURONTIN 300 MG CAPSULE 2017 9:18:57 AM gabapentin 300 mg capsule RxNorm: 953701 Capsule(s) TAKE 3 CAPSULES BY MOUTH THREE TIMES DAILY 03/19/2018 04/17/2018 Active Generic For:NEURONTIN 300 MG CAPSULE 12/14/2017 9:18:57 AM methocarbamol 500 mg tablet RxNorm: 399759 TAKE 1 TABLET BY MOUTH THREE TIMES DAILY NEEDED FOR MUSCLE SPASMS 03/05/2018 04/03/2018 Inactive Generic For: ROBAXIN 500 MG TABLET tramadol 50 mg tablet RxNorm: 113690 1-2 Tablet(s) PO TID as needed for pain 03/05/2018 03/09/2018 Inactive tramadol 50 mg tablet RxNorm: 763445 1-2 Tablet(s) PO TID as needed for pain 03/05/2018 03/04/2018 Inactive Cymbalta 60 mg capsule,delayed release RxNorm: 832206 1 Capsule(s) PO daily 02/26/2018 03/27/2018 Inactive ketorolac 60 mg/2 mL intramuscular solution RxNorm: 4138910 2 Milliliter(s) IM 02/26/2018 02/26/2018 Inactive Kenalog 40 mg/mL suspension for injection RxNorm: 5561923 1 Milliliter(s) Inj 02/26/2018 02/26/2018 Inactive Cymbalta 30 mg capsule,delayed release RxNorm: 871625 1 Capsule(s) PO daily 02/07/2018 03/08/2018 Inactive methocarbamol 500 mg tablet RxNorm: 997661 TAKE 1 TABLET BY MOUTH THREE TIMES DAILY NEEDED FOR MUSCLE SPASMS 02/06/2018 02/20/2018 Inactive Generic For: ROBAXIN 500 MG TABLET Tylenol-Codeine #3 300 mg-30 mg tablet RxNorm: 801632 1 Tablet(s) PO Q6 as needed for pain 01/19/2018 04/03/2018 Inactive gabapentin 300 mg capsule RxNorm: 488824 TAKE 3 CAPSULES BY MOUTH THREE TIMES DAILY 12/14/2017 03/18/2018 Inactive Generic For:NEURONTIN 300 MG CAPSULE 2017 9:18:57 AM methocarbamol 500 mg tablet RxNorm: 897096 TAKE 1 TABLET BY MOUTH THREE TIMES DAILY NEEDED FOR MUSCLE SPASMS 12/05/2017 01/18/2018 Inactive Generic For: ROBAXIN 500 MG TABLET Voltaren 1 % topical gel RxNorm: 046202 1 Application TOP QID as needed 11/29/2017 No Stop Date Active Zorvolex 35 mg capsule RxNorm: 6911059 1 Capsule(s) PO TID No Stop Date Active Tylenol-Codeine #3 300 mg-30 mg tablet RxNorm: 441085 1 Tablet(s) PO Q6 as needed for pain 11/13/2017 02/09/2018 Inactive hydrocodone 5 mg-acetaminophen 325 mg tablet RxNorm: 220705 1 Tablet(s) PO QID as needed 11/03/2017 No Stop Date Active prednisone 20 mg tablet RxNorm: 876277 2 Tablet(s) PO daily 11/07/2017 Inactive gabapentin 300 mg capsule RxNorm: 969562 TAKE 3 CAPSULES BY MOUTH THREE TIMES DAILY 10/25/2017 12/13/2017 Inactive Generic For:NEURONTIN 300 MG CAPSULE N O T I C E Last quantity doesn't match original quantity tizanidine 2 mg capsule RxNorm: 545194 1 Capsule(s) PO TID as needed muscle spasms 10/23/2017 11/01/2017 Inactive tizanidine 2 mg capsule RxNorm: 230375 1 Capsule(s) PO TID as needed muscle spasms 10/17/2017 10/21/2017 Inactive tizanidine 2 mg capsule RxNorm: 723126 1 Capsule(s) PO TID as needed muscle spasms 10/17/2017 10/16/2017 Inactive Tylenol-Codeine #3 300 mg-30 mg tablet RxNorm: 201449 1 Tablet(s) PO Q6 as needed for pain 10/09/2017 01/18/2018 Inactive ibuprofen 800 mg tablet RxNorm: 239676 1 Tablet(s) PO BID 09/1510/05/2017 Inactive ibuprofen 800 mg tablet RxNorm: 557375 1 Tablet(s) PO BID 09/1509/14/2017 Inactive methocarbamol 500 mg tablet RxNorm: 666340 TAKE 1 TABLET BY MOUTH THREE TIMES DAILY NEEDED FOR MUSCLE SPASMS 09/06/2017 10/20/2017 Inactive Generic For: ROBAXIN 500 MG TABLET 09/06/2017 10:42:31 AM Pyridium 200 mg tablet RxNorm: 8015289 1 Tablet(s) PO TID as needed 08/31/2017 09/01/2017 Inactive Keflex 500 mg capsule RxNorm: 906277 1 Capsule(s) PO TID 201708/30/2017 Inactive Pyridium 200 mg tablet RxNorm: 5638387 1 Tablet(s) PO TID as needed 08/31/2017 08/30/2017 Inactive Keflex 500 mg capsule RxNorm: 024372 1 Capsule(s) PO TID 201709/06/2017 Inactive atorvastatin 20 mg tablet RxNorm: 279386 1 Tablet(s) PO daily 08/24/2017 09/22/2017 Inactive metoprolol succinate ER 25 mg tablet,extended release 24 hr RxNorm: 247061 1 Tablet(s) PO QPM 08/16/2017 03/13/2018 Inactive gabapentin 300 mg capsule RxNorm: 202841 2 Capsule(s) PO TID with plans to decrease by 1 capsule every 2 weeks as able to tolerate 08/1610/14/2017 Inactive Tylenol-Codeine #3 300 mg-30 mg tablet RxNorm: 256809 1 Tablet(s) PO Q6 as needed for pain 08/08/2017 01/18/2018 Inactive Bevespi Aerosphere 9 mcg-4.8 mcg HFA aerosol inhaler RxNorm: 4527852 INH 07/11/2017 No Stop Date Active methocarbamol 500 mg tablet RxNorm: 506535 1 Tablet(s) PO TID as needed 07/10/2017 09/05/2017 Inactive gabapentin 800 mg tablet RxNorm: 154509 1 Tablet(s) PO TID 08/15/2017 Inactive Tylenol-Codeine #3 300 mg-30 mg tablet RxNorm: 475701 1 Tablet(s) PO Q6 as needed for pain 06/28/2017 07/12/2017 Inactive Chantix Continuing Month Box 1 mg tablet RxNorm: 725119 1 Tablet(s) PO UD 06/08/2017 07/13/2017 Inactive Tylenol-Codeine #3 300 mg-30 mg tablet RxNorm: 396851 1 Tablet(s) PO QID as needed 06/08/2017 06/22/2017 Inactive atorvastatin 20 mg tablet RxNorm: 836436 1 Tablet(s) PO daily 06/08/2017 07/07/2017 Inactive Robaxin 500 mg tablet RxNorm: 288356 1 Tablet(s) PO QID as needed 06/08/2017 07/07/2017 Inactive gabapentin 800 mg tablet RxNorm: 187345 1 Tablet(s) PO TID 07/04/2017 Inactive Chantix 1 mg tablet RxNorm: 769276 1 Tablet(s) PO BID No Start Date Active Bevespi Aerosphere 9 mcg-4.8 mcg HFA aerosol inhaler RxNorm: 2285820 1 INH BID No Start Date Active gabapentin 800 mg tablet RxNorm: 224923 1 Tablet(s) PO TID No Start Date 06/07/2017 Inactive atorvastatin 20 mg tablet RxNorm: 794903 1 Tablet(s) PO daily No Start Date 06/07/2017 Inactive Tylenol-Codeine #3 oral RxNorm: 019961 oral No Start Date 06/25/2017 Inactive Medication Administered Medication Codes Instructions Start Date Status ketorolac 60 mg/2 mL intramuscular solution RxNorm: 9512302 2Milliliter 02/26/2018 No longer Active Kenalog 40 mg/mL suspension for injection RxNorm: 7018329 1Milliliter 02/26/2018 No longer Active Immunizations No Immunization data Assessments Condition Codes Effective Dates Low back pain ICD-10: M54.5 ICD-9: 724.2 02/26/2018 Sciatica, left side ICD-10: M54.32 ICD-9: 724.3 02/26/2018 Pain in right shoulder ICD-10: M25.511 ICD-9: 719.41 02/07/2018 Primary generalized (osteo)arthritis ICD-10: M15.0 ICD-9: 715.09 11/29/2017 Muscle spasm of back ICD-10: M62.830 ICD-9: 724.8 11/03/2017 Interstitial emphysema ICD-10: J98.2 ICD-9: 518.1 09/20/2017 Mixed hyperlipidemia ICD-10: E78.2 ICD-9: 272.2 09/20/2017 Dysuria ICD-10: R30.0 ICD-9: 788.1 08/31/2017 Radiculopathy, lumbar region ICD-10: M54.16 ICD-9: 724.4 06/08/2017 Chronic obstructive pulmonary disease, unspecified ICD-10: J44.9 ICD-9: 496 06/08/2017 Reason For Visit Reason For Visit Effective Dates Notes back pain 02/26/2018 shoulder pain 02/07/2018 shoulder pain 11/29/2017 shoulder pain 11/03/2017 shoulder pain 10/17/2017 shortness of breath 09/20/2017 shoulder pain shortness of breath 08/16/2017 shortness of breath 07/10/2017 cough 06/08/2017 Results Observation Observation Code Item Item Code Result Date Urine Culture Ucult Preliminary NO Growth Day 1 09/04/2017 Urine Culture Ucult Complete NO Growth Day 2 09/04/2017 Review of Systems System Result Effective Dates Constitutional No recent illness 2017 Constitutional No chills 02/26/2018 Constitutional No fever 02/26/2018 Eyes No eye erythema 02/26/2018 Ears/Nose/Throat/Neck No nasal discharge 02/26/2018 Cardiovascular No chest pain/pressure Cardiovascular No dyspnea 02/26/2018 Respiratory No cough 02/26/2018 Respiratory No dyspnea 02/26/2018 Neurologic No alteration of consciousness 02/26/2018 Neurologic No mental status change 2017 Musculoskeletal back pain 02/26/2018 Constitutional No recent illness 2017 Constitutional No chills 02/07/2018 Constitutional No fever 02/07/2018 Eyes No eye erythema 02/07/2018 Ears/Nose/Throat/Neck No nasal discharge 02/07/2018 Cardiovascular No chest pain/pressure Cardiovascular No dyspnea 02/07/2018 Respiratory No cough 02/07/2018 Respiratory No dyspnea 02/07/2018 Neurologic No alteration of consciousness 02/07/2018 Neurologic No mental status change 2017 Musculoskeletal shoulder pain 02/07/2018 Constitutional No recent illness 2017 Constitutional No chills 11/29/2017 Constitutional No fever 11/29/2017 Eyes No eye erythema 11/29/2017 Ears/Nose/Throat/Neck No nasal discharge 11/29/2017 Cardiovascular No chest pain/pressure Cardiovascular No dyspnea 11/29/2017 Respiratory No cough 11/29/2017 Respiratory No dyspnea 11/29/2017 Musculoskeletal back pain 11/29/2017 Musculoskeletal shoulder pain 11/29/2017 Neurologic No alteration of consciousness 11/29/2017 Neurologic No mental status change 2017 Constitutional No recent illness 2017 Constitutional No chills 11/03/2017 Constitutional No fever 11/03/2017 Eyes No eye erythema 11/03/2017 Ears/Nose/Throat/Neck No nasal discharge 11/03/2017 Cardiovascular No chest pain/pressure Cardiovascular No dyspnea 11/03/2017 Respiratory No cough 11/03/2017 Respiratory No dyspnea 11/03/2017 Musculoskeletal shoulder pain 11/03/2017 Neurologic No alteration of consciousness 11/03/2017 Neurologic No mental status change 2017 Musculoskeletal back pain 11/03/2017 Constitutional No recent illness 2017 Constitutional No chills 10/17/2017 Constitutional No fever 10/17/2017 Eyes No eye erythema 10/17/2017 Ears/Nose/Throat/Neck No nasal discharge 10/17/2017 Cardiovascular No chest pain/pressure 01/2018 Cardiovascular No dyspnea 10/17/2017 Respiratory No cough 10/17/2017 Respiratory No dyspnea 10/17/2017 Neurologic No alteration of consciousness 10/17/2017 Neurologic No mental status change 2017 Musculoskeletal shoulder pain 10/17/2017 Constitutional No recent illness 2017 Constitutional No chills 09/20/2017 Constitutional No diaphoresis 09/20/2017 Constitutional No fever 09/20/2017 Eyes No eye erythema 09/20/2017 Ears/Nose/Throat/Neck nasal allergies 02/2018 Ears/Nose/Throat/Neck No nasal discharge 09/20/2017 Cardiovascular No chest pain/pressure 02/2018 Respiratory No chest congestion 2017 Respiratory cough 09/20/2017 Respiratory dyspnea on exertion 2017 Respiratory No dyspnea 09/20/2017 Gastrointestinal No abdominal pain 2017 Gastrointestinal No constipation 2017 Gastrointestinal No diarrhea 09/20/2017 Gastrointestinal No nausea 09/20/2017 Gastrointestinal No vomiting 09/20/2017 Musculoskeletal stiffness 09/20/2017 Musculoskeletal arthralgia(s) 09/20/2017 Musculoskeletal back pain 09/20/2017 Dermatologic No rash 09/20/2017 Neurologic No alteration of consciousness 09/20/2017 Neurologic No mental status change 2017 Psychiatric No anxiety 09/20/2017 Psychiatric No depression 09/20/2017 Constitutional No recent illness 2017 Constitutional No [...] Result Effective Dates Notes Full Exam - Orthopedics Constitutional general appearance Overall: well nourished 02/26/2018 None Full Exam - Orthopedics Constitutional general appearance Overall: well developed 02/26/2018 None Full Exam - Orthopedics Constitutional general appearance Overall: in no acute distress 02/26/2018 None Full Exam - Orthopedics Eyes conjunctiva/ eyelids Overall: conjunctiva clear 02/26/2018 None Full Exam - Orthopedics Eyes conjunctiva/ eyelids Overall: eyelids normal 02/26/2018 None Full Exam - Orthopedics Ears/Nose/Throat lips/teeth/gingiva Overall: benign lips 02/26/2018 None Full Exam - Orthopedics Ears/Nose/Throat oral cavity/pharynx/larynx Overall: oral mucosa clear 02/26/2018 None Full Exam - Orthopedics Respiratory respiratory effort/rhythm Overall: no retractions 02/26/2018 None Full Exam - Orthopedics Respiratory respiratory effort/rhythm Overall: normal rate 02/26/2018 None Full Exam - Orthopedics Psychiatric orientation/consciousness Overall: oriented to person, place and time 02/26/2018 None Full Exam - Orthopedics Psychiatric mood and affect Overall: normal mood and affect 02/26/2018 None Full Exam - Orthopedics Psychiatric appearance Overall: well-groomed, good eye contact 02/26/2018 None Full Exam - Orthopedics MS: head/neck insp & palp - H/N Overall: head atraumatic 02/26/2018 None Full Exam - Orthopedics MS: spine/rib/pelvis insp & palp - S/R/P Sacroiliac palpation: left sacroiliac joint tenderness 02/26/2018 None Full Exam - Orthopedics Constitutional general appearance Overall: well nourished 02/07/2018 None Full Exam - Orthopedics Constitutional general appearance Overall: well developed 02/07/2018 None Full Exam - Orthopedics Constitutional general appearance Overall: in no acute distress 02/07/2018 None Full Exam - Orthopedics Eyes conjunctiva/ eyelids Overall: conjunctiva clear 02/07/2018 None Full Exam - Orthopedics Eyes conjunctiva/ eyelids Overall: eyelids normal 02/07/2018 None Full Exam - Orthopedics Ears/Nose/Throat lips/teeth/gingiva Overall: benign lips 02/07/2018 None Full Exam - Orthopedics Ears/Nose/Throat oral cavity/pharynx/larynx Overall: oral mucosa clear 02/07/2018 None Full Exam - Orthopedics Respiratory respiratory effort/rhythm Overall: no retractions 02/07/2018 None Full Exam - Orthopedics Respiratory respiratory effort/rhythm Overall: normal rate 02/07/2018 None Full Exam - Orthopedics Psychiatric orientation/consciousness Overall: oriented to person, place and time 02/07/2018 None Full Exam - Orthopedics Psychiatric mood and affect Overall: normal mood and affect 02/07/2018 None Full Exam - Orthopedics Psychiatric appearance Overall: well-groomed, good eye contact 02/07/2018 None Full Exam - Orthopedics MS: right upper extremity insp & palp - RUE Shoulder: tenderness @ biceps tendon 02/07/2018 None Full Exam - Orthopedics MS: right upper extremity insp & palp - RUE Shoulder: tenderness @ subacromial space 02/07/2018 None Full Exam - Orthopedics Constitutional general appearance Overall: well nourished 11/29/2017 None Full Exam - Orthopedics Constitutional general appearance Overall: well developed 11/29/2017 None Full Exam - Orthopedics Constitutional general appearance Overall: in no acute distress 11/29/2017 None Full Exam - Orthopedics Eyes conjunctiva/ eyelids Overall: conjunctiva clear 11/29/2017 None Full Exam - Orthopedics Eyes conjunctiva/ eyelids Overall: eyelids normal 11/29/2017 None Full Exam - Orthopedics Ears/Nose/Throat lips/teeth/gingiva Overall: benign lips 11/29/2017 None Full Exam - Orthopedics Ears/Nose/Throat oral cavity/pharynx/larynx Overall: oral mucosa clear 11/29/2017 None Full Exam - Orthopedics Respiratory respiratory effort/rhythm Overall: no retractions 11/29/2017 None Full Exam - Orthopedics Respiratory respiratory effort/rhythm Overall: normal rate 11/29/2017 None Full Exam - Orthopedics MS: head/neck insp & palp - H/N Cervical muscles palpation: tender right paracervical 11/29/2017 None Full Exam - Orthopedics MS: spine/rib/pelvis insp & palp - S/R/P Lumbar spine palpation: tender lumbar spinous processes 11/29/2017 None Full Exam - Orthopedics MS: spine/rib/pelvis insp & palp - S/R/P Lumbar spine palpation: tender facet joints 11/29/2017 None Full Exam - Orthopedics MS: spine/rib/pelvis insp & palp - S/R/P Thoracic/lumbar muscles palpation: tender left paralumbar 11/29/2017 None Full Exam - Orthopedics MS: spine/rib/pelvis insp & palp - S/R/P Thoracic/lumbar muscles palpation: tender right paralumbar 11/29/2017 None Full Exam - Orthopedics MS: right upper extremity insp & palp - RUE Shoulder: tenderness @ biceps tendon 11/29/2017 None Full Exam - Orthopedics MS: right upper extremity range of motion - RUE Shoulder: pain with flexion 11/29/2017 None Full Exam - Orthopedics MS: right upper extremity range of motion - RUE Shoulder: pain with extension 11/29/2017 None Full Exam - Orthopedics Psychiatric orientation/consciousness Overall: oriented to person, place and time 11/29/2017 None Full Exam - Orthopedics Psychiatric mood and affect Mood: labile mood 11/29/2017 None Full Exam - Orthopedics Psychiatric mood and affect Mood: irritable 11/29/2017 None Full Exam - Orthopedics Constitutional general appearance Overall: well nourished 11/03/2017 None Full Exam - Orthopedics Constitutional general appearance Overall: well developed 11/03/2017 None Full Exam - Orthopedics Constitutional general appearance Overall: in no acute distress 11/03/2017 None Full Exam - Orthopedics Eyes conjunctiva/ eyelids Overall: conjunctiva clear 11/03/2017 None Full Exam - Orthopedics Eyes conjunctiva/ eyelids Overall: eyelids normal 11/03/2017 None Full Exam - Orthopedics Ears/Nose/Throat lips/teeth/gingiva Overall: benign lips 11/03/2017 None Full Exam - Orthopedics Ears/Nose/Throat oral cavity/pharynx/larynx Overall: oral mucosa clear 11/03/2017 None Full Exam - Orthopedics Respiratory respiratory effort/rhythm Overall: no retractions 11/03/2017 None Full Exam - Orthopedics Respiratory respiratory effort/rhythm Overall: normal rate 11/03/2017 None Full Exam - Orthopedics MS: head/neck insp & palp - H/N Cervical muscles palpation: tender right paracervical 11/03/2017 None Full Exam - Orthopedics MS: right upper extremity insp & palp - RUE Shoulder: tenderness @ biceps tendon 11/03/2017 None Full Exam - Orthopedics MS: right upper extremity range of motion - RUE Shoulder: pain with flexion 11/03/2017 None Full Exam - Orthopedics MS: right upper extremity range of motion - RUE Shoulder: pain with extension 11/03/2017 None Full Exam - Orthopedics Psychiatric orientation/consciousness Overall: oriented to person, place and time 11/03/2017 None Full Exam - Orthopedics Psychiatric mood and affect Overall: normal mood and affect 11/03/2017 None Full Exam - Orthopedics Psychiatric appearance Overall: well-groomed, good eye contact 11/03/2017 None Full Exam - Orthopedics MS: spine/rib/pelvis insp & palp - S/R/P Lumbar spine palpation: tender lumbar spinous processes 11/03/2017 None Full Exam - Orthopedics MS: spine/rib/pelvis insp & palp - S/R/P Lumbar spine palpation: tender facet joints 11/03/2017 None Full Exam - Orthopedics MS: spine/rib/pelvis insp & palp - S/R/P Thoracic/lumbar muscles palpation: tender right paralumbar 11/03/2017 None Full Exam - Orthopedics MS: spine/rib/pelvis insp & palp - S/R/P Thoracic/lumbar muscles palpation: tender left paralumbar 11/03/2017 None Full Exam - Orthopedics Constitutional general appearance Overall: well nourished 10/17/2017 None Full Exam - Orthopedics Constitutional general appearance Overall: well developed 10/17/2017 None Full Exam - Orthopedics Constitutional general appearance Overall: in no acute distress 10/17/2017 None Full Exam - Orthopedics Eyes conjunctiva/ eyelids Overall: conjunctiva clear 10/17/2017 None Full Exam - Orthopedics Eyes conjunctiva/ eyelids Overall: eyelids normal 10/17/2017 None Full Exam - Orthopedics Ears/Nose/Throat lips/teeth/gingiva Overall: benign lips 10/17/2017 None Full Exam - Orthopedics Ears/Nose/Throat oral cavity/pharynx/larynx Overall: oral mucosa clear 10/17/2017 None Full Exam - Orthopedics Respiratory respiratory effort/rhythm Overall: no retractions 10/17/2017 None Full Exam - Orthopedics Respiratory respiratory effort/rhythm Overall: normal rate 10/17/2017 None Full Exam - Orthopedics Psychiatric orientation/consciousness Overall: oriented to person, place and time 10/17/2017 None Full Exam - Orthopedics Psychiatric mood and affect Overall: normal mood and affect 10/17/2017 None Full Exam - Orthopedics Psychiatric appearance Overall: well-groomed, good eye contact 10/17/2017 None Full Exam - Orthopedics MS: right upper extremity insp & palp - RUE Shoulder: tenderness @ biceps tendon 10/17/2017 None Full Exam - Orthopedics MS: right upper extremity range of motion - RUE Shoulder: pain with flexion 10/17/2017 None Full Exam - Orthopedics MS: right upper extremity range of motion - RUE Shoulder: pain with extension 10/17/2017 None Full Exam - Orthopedics MS: head/neck insp & palp - H/N Cervical muscles palpation: tender right paracervical 10/17/2017 None Full Exam - General 1994 Constitutional general appearance Overall: well developed 09/20/2017 None Full Exam - General 1994 Constitutional general appearance Overall: in no acute distress 09/20/2017 None Full Exam - General 1994 Constitutional general appearance Overall: well nourished 09/20/2017 None Full Exam - General 1994 Eyes conjunctiva /eyelids Overall: conjunctiva clear 09/20/2017 None Full Exam - General 1994 Eyes conjunctiva /eyelids Overall: eyelids normal 09/20/2017 None Full Exam - General 1994 Eyes pupils and irises Overall: pupils equal, round, reactive to light and accomodation 09/20/2017 None Full Exam - General 1994 Ears/Nose/Throat lips/teeth/gingiva Overall: benign lips 09/20/2017 None Full Exam - General 1994 Ears/Nose/Throat oral cavity/pharynx/larynx Overall: oral mucosa clear 09/20/2017 None Full Exam - General 1994 Ears/Nose/Throat oral cavity/pharynx/larynx Overall: oropharyngeal mucosa clear 09/20/2017 None Full Exam - General 1994 Respiratory auscultation Diffuse: diminished 09/20/2017 None Full Exam - General 1994 Respiratory respiratory effort/rhythm Overall: no retractions 09/20/2017 None Full Exam - General 1994 Respiratory respiratory effort/rhythm Overall: normal rate 09/20/2017 None Full Exam - General 1994 Cardiovascular auscultation of heart Overall: regular rate 09/20/2017 None Full Exam - General 1994 Cardiovascular auscultation of heart Overall: normal heart sounds 09/20/2017 None Full Exam - General 1994 Abdomen abdominal exam Overall: no tenderness 09/20/2017 None Full Exam - General 1994 Abdomen abdominal exam Overall: normal bowel sounds 09/20/2017 None Full Exam - General 1994 Lymphatic neck nodes Overall: anterior cervical chain benign 09/20/2017 None Full Exam - General 1994 Lymphatic neck nodes Overall: posterior cervical chain benign 09/20/2017 None Full Exam - General 1994 Musculoskeletal spine, ribs and pelvis Spine: tender @ lumbar spine 09/20/2017 None Full Exam - General 1994 Musculoskeletal head and neck Overall: head atraumatic 09/20/2017 None Full Exam - General 1994 Neurologic cranial nerves Overall: crainial nerves 2 - 12 grossly intact 09/20/2017 None Full Exam - General 1994 Psychiatric orientation/consciousness Overall: oriented to person, place and time 09/20/2017 None Full Exam - General 1994 Psychiatric mood and affect Overall: normal mood and affect 09/20/2017 None Full Exam - General 1994 Ears/Nose/Throat otoscopic exam External auditory canal: partial cerumen occlusion 09/20/2017 None Full Exam - General 1994 Ears/Nose/Throat otoscopic exam Overall: tympanic membranes clear 09/20/2017 None Full Exam - General 1994 Constitutional [...] affect 06/08/2017 None Procedures Procedure Codes Date TRIAMCINOLONE ACET INJ NOS CPT-4: J3301 02/26/2018 DRAIN/INJECT JOINT/BURSA CPT-4: 60239 02/26/2018 KETOROLAC TROMETHAMINE INJ CPT-4: J1885 02/26/2018 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-[address]: 655238260 CPT-4: G0436 07/10/2017 Vital Signs Date Vital 02/26/2018 Blood Pressure 1: 144/78 Code : 8480-6 BMI: 23.2 Code : 32614-2 Heart Rate 1 : 86 bpm Height: 5'2" SpO2: 98% Weight: 127 lbs 02/07/2018 Blood Pressure 1: 160/80 Code : 8480-6 BMI: 23.4 Code : 43068-0 Heart Rate 1 : 120 bpm Height: 5'2" SpO2: 93% Weight: 128 lbs 11/29/2017 Blood Pressure 1: 140/80 Code : 8480-6 BMI: 26.0 Code : 12387-3 Heart Rate 1 : 97 bpm Height: 5'2" SpO2: 98% Weight: 142 lbs 11/03/2017 Blood Pressure 1: 156/84 Code : 8480-6 BMI: 26.0 Code : 57540-2 Heart Rate 1 : 85 bpm Height: 5'2" SpO2: 97% Weight: 142 lbs 10/17/2017 Blood Pressure 1: 154/74 Code : 8480-6 BMI: 26.0 Code : 83840-1 Heart Rate 1 : 92 bpm Height: 5'2" SpO2: 97% Weight: 142 lbs 09/20/2017 Blood Pressure 1: 134/76 Code : 8480-6 BMI: 26.0 Code : 04875-1 Heart Rate 1 : 87 bpm Height: 5'2" SpO2: 95% Weight: 142 lbs 08/16/2017 Blood Pressure 1: 164/82 Code : 8480-6 Blood Pressure 1: 180/86 Code: 8480-6 BMI: 26.5 Code: 36899-1 Heart Rate 1: 96 bpm Height: 5'2" SpO2: 96% Weight: 145 lbs 07/10/2017 Blood Pressure 1: 144/78 Code : 8480-6 BMI: 25.8 Code : 58454-6 Heart Rate 1 : 104 bpm Height: 5'2" SpO2: 98% Weight: 141 lbs 06/08/2017 Blood Pressure 1: 134/80 Code : 8480-6 BMI: 25.2 Code : 73808-3 Heart Rate 1 : 99 bpm Height: 5'2" SpO2: 97% Weight: 138 lbs Functional Status No Functional Status data History of Present Illness Symptom Name Status Result Effective Date Notes back pain Location lumbar-sacral spine 02/26/2018 None back pain Location in the left lower back area 02/26/2018 None back pain Quality acute 02/26/2018 None back pain Onset and Resolution sudden in onset 02/26/2018 None back pain Limitation on Activities moderately limits activities 02/26/2018 None back pain Triggers position change 02/26/2018 None back pain Alleviating Factors medication 02/26/2018 None back pain Radiating down left leg 02/26/2018 None back pain Severity severe 02/26/2018 None back pain Pertinent Findings Denies fever 02/26/2018 None shoulder pain Location on the right shoulder 02/07/2018 None shoulder pain Quality acute 02/07/2018 None shoulder pain Quality constant 02/07/2018 None shoulder pain Onset and Resolution ongoing 02/07/2018 None shoulder pain Onset of Symptom 8 weeks ago 02/07/2018 None shoulder pain Pertinent Findings limited range of motion 02/07/2018 None shoulder pain Pertinent Findings swelling 02/07/2018 None shoulder pain Location on the right shoulder 11/29/2017 None shoulder pain Quality aching 11/29/2017 None shoulder pain Quality constant 11/29/2017 None shoulder pain Quality stabbing 11/29/2017 None shoulder pain Quality tenderness 11/29/2017 None shoulder pain Quality throbbing 11/29/2017 None shoulder pain Onset and Resolution ongoing 11/29/2017 None shoulder pain Location on the right shoulder 11/03/2017 None shoulder pain Quality aching 11/03/2017 None shoulder pain Quality constant 11/03/2017 None shoulder pain Quality stabbing 11/03/2017 None shoulder pain Quality tenderness 11/03/2017 None shoulder pain Quality throbbing 11/03/2017 None shoulder pain Onset and Resolution ongoing 11/03/2017 None shoulder pain Location on the right shoulder 10/17/2017 None shoulder pain Quality aching 10/17/2017 None shoulder pain Quality constant 10/17/2017 None shoulder pain Quality throbbing 10/17/2017 None shoulder pain Quality tenderness 10/17/2017 None shoulder pain Quality stabbing 10/17/2017 None shoulder pain Onset and Resolution ongoing 10/17/2017 None shortness of breath Quality acute 09/20/2017 None shortness of breath Quality breathlessness 09/20/2017 None shortness of breath Quality intermittent 09/20/2017 None shortness of breath Onset and Resolution ongoing 09/20/2017 None shortness of breath Onset of Symptom 6 months ago 09/20/2017 since January 2017 shortness of breath Significant Medical Conditions pulmonary disease 09/20/2017 None neck pain Location Cervical spine 09/20/2017 None neck pain Quality chronic 09/20/2017 None neck pain Quality intermittent 09/20/2017 None neck pain Onset and Resolution ongoing 09/20/2017 None neck pain Frequency of Episodes decreasing 09/20/2017 None neck pain Alleviating Factors medication 09/20/2017 None back pain Location lumbar-sacral spine 09/20/2017 None back pain Quality chronic 09/20/2017 None back pain Pertinent Findings Denies fever 09/20/2017 None shortness of breath Quality acute 08/16/2017 None [...] data Encounters Encounter Performer Location Codes Date EST. PATIENT, LEVEL III Diagnosis: Low back pain[ICD10: M54.5] Diagnosis: Sciatica, left side[ICD10: M54.32] Tamia Fonseca MD, [facility] CPT-4: 34331 02/26/2018 [id number] EST. PATIENT, LEVEL III Diagnosis: Pain in right shoulder[ICD10: M25.511] [facility] CPT-4: 79857 02/07/2018 40403 EST. PATIENT, LEVEL III Diagnosis: Pain in right shoulder[ICD10: M25.511] Diagnosis: Primary generalized (osteo)arthritis[ICD10: M15.0] Diagnosis: Low back pain[ICD10: M54.5] Heidy Fonseca MD, [facility] CPT-4 : 17886 11/29/2017 [id number] EST. PATIENT, LEVEL III Diagnosis: Pain in right shoulder[ICD10: M25.511] Diagnosis: Primary generalized (osteo)arthritis[ICD10: M15.0] Diagnosis: Muscle spasm of back[ICD10: M62.830] Diagnosis: Low back pain[ICD10: M54.5] Heidy Fonseca MD, [facility] CPT-4 : 95394 11/03/2017 67924 EST. PATIENT, LEVEL III Diagnosis: Pain in right shoulder[ICD10: M25.511] Diagnosis: Primary generalized (osteo)arthritis[ICD10: M15.0] Diagnosis: Muscle spasm of back[ICD10: M62.830] Heidy Fonseca MD, [facility] CPT-4: 68144 10/17/2017 62071 EST. PATIENT, LEVEL IV Diagnosis: Interstitial emphysema[ICD10: J98.2] Diagnosis: Mixed hyperlipidemia[ICD10: E78.2] Diagnosis: Low back pain[ICD10: M54.5] Heidy Fonseca MD, [facility] CPT-4 : 44808 09/20/2017 ([id number]) 99377 EST. PATIENT, LEVEL IV Diagnosis: Interstitial emphysema[ICD10: J98.2] Diagnosis: Mixed hyperlipidemia[ICD10: E78.2] Diagnosis: Low back pain[ICD10: M54.5] Tamia Fonseca MD, [facility] CPT- 4: 79817 08/16/2017 ([id number]) 69196 EST. PATIENT, LEVEL IV Diagnosis: Mixed hyperlipidemia[ICD10: E78.2] Diagnosis: Interstitial emphysema[ICD10: J98.2] Tamia Fonseca MD, [facility] CPT-4: 74354 07/10/2017 OFFICE VISIT, NEW - LEVEL 4 Diagnosis: Low back pain[ICD10: M54.5] Diagnosis: Radiculopathy, lumbar region[ICD10: M54.16] Diagnosis: Chronic obstructive pulmonary disease, unspecified[ICD10: J44.9] Diagnosis: Primary generalized (osteo)arthritis[ICD10: M15.0] Diagnosis: Mixed hyperlipidemia[ICD10: E78.2] Heidy Fonseca MD, [facility] CPT-4: 17533 06/08/2017 Plan of Care Planned Activity Notes Codes Status Date Visit Plan: Low back pain- the patient was instructed in appropriate posture. The pt is to use prn antiinflammatories to manage acute pain. The patient is to call the office if the pain is worsening or does not improve. Joint Injection - Pt was given post - injection instructions. The pt has been advised to use anti-inflammatories post injection today, ice to the injected site, call if redness, warmth, or increased pain occurs at the site of injection. Sciatica- exercises discussed with the patient, pt to continue with antiinflammatories. Pt is to call if the symptoms do not improve or if they worsen. 02/26/2018 Appointment: Heidy Almanzar WPtel: [phone] [facility] [place] (15 min) Moderate 02/26/2018 Patient Education: Patient Medication Summary Completed 02/26/2018 Visit Plan: Right shoulder pain - ongoing - will send RX - The pt is to use prn antiinflammatories to manage acute pain. The patient is to call the office if the pain is worsening or does not improve. 02/07/2018 Patient Education: Patient Medication Summary Completed 02/07/2018 Visit Plan: Right shoulder pain, muscle spasm back - will send RX - pt is to follow up with ortho after her MRI - the patient was instructed in appropriate posture. The pt is to use prn antiinflammatories to manage acute pain. The patient is to call the office if the pain is worsening or does not improve. 11/29/2017 Appointment: Heidy Almanzar WPtel: [facility] [place] [place] (15 min) Moderate 11/29/2017 Patient Education: Patient Medication Summary Completed 11/29/2017 Referral: José Sparks [facility] Initiated 11/23/2017 Care Plan: Referral Order SNOMED-CT : [id number] Pending 11/20/2017 Visit Plan: Right shoulder pain, muscle spasm back - will send RX - will refer to orthopedics - the patient was instructed in appropriate posture. The pt is to use prn antiinflammatories to manage acute pain. The patient is to call the office if the pain is worsening or does not improve. 11/03/2017 Appointment: Heidy Almanzar WPtel: [facility] [place] [place] (30 min) Complex 11/03/2017 Patient Education: Patient Medication Summary Completed 11/03/2017 Visit Plan: Right shoulder pain, muscle spasm back - will send RX - will order x-ray/MRI - the patient was instructed in appropriate posture. The pt is to use prn antiinflammatories to manage acute pain. The patient is to call the office if the pain is worsening or does not improve. 10/17/2017 Appointment: Heidy Almanzar WPtel: [facility] [place] (30 min) Complex 10/17/2017 Patient Education: Patient Medication Summary Completed 10/17/2017 Visit Plan: COPD/Interstitial lung disease- pt taking bevespi - chronic problem for this patient. We have reviewed chronic treatment strategy, symptom control, and plans for acute exacerbations. No changes today to the current treatment plan as the patient is stable, monitor for acute changes. Hypertension - well controlled - continue with current medications, continue with no added salt diet. Pt has been encouraged to exercise daily. The pt has been advised to call the office if there are any acute concerns about change in blood pressure readings at home. Peripheral neuropathy - continue with gabapentin. 09/20/2017 Appointment: Heidy Almanzar WPtel: [phone] [facility] (30 min) Complex 09/20/2017 Patient Education: Patient Medication Summary Completed 09/20/2017 Appointment: Tamia Fonseca WPtel: [facility] [place] (15 min) Moderate 09/19/2017 Appointment: Lab Draw 08/31/2017 Patient Education: Patient Medication Summary Completed 08/31/2017 Visit Plan: COPD/Interstitial lung disease- pt taking [...] with gabapentin. 08/16/2017 Appointment: Tamia Fonseca WPtel: [facility] [place] (15 min) Moderate 08/16/2017 Patient Education: [...] patient - bevespi samples - lost # [id number], exp 03/201807/10/2017 Appointment: Tamia Fonseca WPtel: [phone] [facility] (30 min) Complex 07/10/2017 Patient Education: Patient [...] liver response to medications. 06/08/2017 Appointment: Heidy Almanzar WPtel: [facility] [place] [facility] New Patient 06/08/2017 Patient Education: Patient Medication Summary Completed 06/08/2017 Patient Education: Smoking and Tobacco Addiction Completed 06/08/2017 Patient Education: Obesity Completed 06/08/2017 Referral: José Sparks Referral Initiated Instructions Comment . Low back pain- the patient was instructed in appropriate posture. The pt is to use prn antiinflammatories to manage acute pain. The patient is to call the office if the pain is worsening or does not improve. Joint Injection - Pt was given post - injection instructions. The pt has been advised to use anti-inflammatories post injection today, ice to the injected site, call if redness, warmth, or increased pain occurs at the site of injection. Sciatica- exercises discussed with the patient, pt to continue with antiinflammatories. Pt is to call if the symptoms do not improve or if they worsen. . Chronic Back pain - the patient [...] to assure normal liver response to medications. . Right shoulder pain, muscle spasm back - will send RX - pt is to follow up with ortho after her MRI - the patient was instructed in appropriate posture. The pt is to use prn antiinflammatories to manage acute pain. The patient is to call the office if the pain is worsening or does not improve. . Right shoulder pain, muscle spasm back - will send RX - will order x-ray/MRI - the patient was instructed in appropriate posture. The pt is to use prn antiinflammatories to manage acute pain. The patient is to call the office if the pain is worsening or does not improve. . COPD/Interstitial lung disease- pt taking bevespi - chronic problem for this patient. We have reviewed chronic treatment strategy, symptom control, and plans for acute exacerbations. No changes today to the current treatment plan as the patient is stable, monitor for acute changes. Hypertension - well controlled - continue with current medications, continue with no added salt diet. Pt has been encouraged to exercise daily. The pt has been advised to call the office if there are any acute concerns about change in blood pressure readings at home. Peripheral neuropathy - continue with gabapentin. 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 Fonseca in [place] Dr. Franklyn Orantes [facility] . COPD/Interstitial lung disease- pt taking bevespi [...] Peripheral neuropathy - continue with gabapentin. . Right shoulder pain - ongoing - will send RX - The pt is to use prn antiinflammatories to manage acute pain. The patient is to call the office if the pain is worsening or does not improve. . Right shoulder pain, muscle spasm back - will send RX - will refer to orthopedics - the patient was instructed in appropriate posture. The pt is to use prn antiinflammatories to manage acute pain. The patient is to call the office if the pain is worsening or does not improve. . Hyperlipidemia - pt has been counseled [...] patient - bevespi samples - lost # [id number], exp 03/2018
--- OUTSIDE RECORDS SUMMARY | 2018-08-05 00:46 | XMS REPORT | CCD ---
Author Author Heidy Almanzar MD, [facility] Address [address] [place] [address] Phone Care Team Providers Care Clinical Veterinarian Name Role Phone PP Unavailable CCM Unavailable Summary Purpose Interface Exchange Insurance Providers Payer name Policy type / Coverage type Covered democrat ID Effective Begin Date Effective End Date Blue Cross Blue Shield [facility] Blue Cross/Blue Shield [id number] Unknown Unknown Family history Brother Diagnosis Age [...] Unknown Nolan 07/10/[address]: 8914611 Former smoker 07/10/2017 Number of children Unknown 2 06/08/2017 Employment Unknown Retired 06/08/2017 Number of years using tobacco Unknown 30 - 40 06/08/2017 Number of cigarettes/day Unknown 20 (One Pack) 06/08/[address]: 526523439 Never drinks alcohol 06/08/2017 Allergies, Adverse Reactions, Alerts Allergies, Adverse Reactions, Alerts data not found Past Medical History Illness Codes Condition Status Onset Date Resolved Date Dysuria ICD-9: 788.1 ICD-10: R30.0 Active 08/31/2017 Unknown Interstitial emphysema ICD-9: 518.1 ICD-10: J98.2 [...] Problems Condition Codes Effective Dates Condition Status Dysuria ICD-9: 788.1 ICD-10: R30.0 08/31/2017 Active Interstitial emphysema ICD-9: 518.1 ICD-10: J98.2 [...] Start Date Stop Date Status Fill Instructions methocarbamol 500 mg tablet RxNorm: 574267 TAKE 1 TABLET BY MOUTH THREE TIMES DAILY NEEDED FOR MUSCLE SPASMS 09/06/2017 10/20/2017 Active Generic For:ROBAXIN 500 MG TABLET 09/06/2017 10:42:31 AM Keflex 500 mg capsule RxNorm: 423574 1 Capsule(s) PO TID 201709/06/2017 Inactive Pyridium 200 mg tablet RxNorm: 4260197 1 Tablet(s) PO TID as needed 08/31/2017 09/01/2017 Inactive Keflex 500 mg capsule RxNorm: 722360 1 Capsule(s) PO TID 201708/30/2017 Inactive Pyridium 200 mg tablet RxNorm: 9514570 1 Tablet(s) PO TID as needed 08/31/2017 08/30/2017 Inactive atorvastatin 20 mg tablet RxNorm: 862078 1 Tablet(s) PO daily 08/24/2017 09/22/2017 Active metoprolol succinate ER 25 mg tablet,extended release 24 hr RxNorm: 933516 1 Tablet(s) PO QPM 08/16/2017 03/13/2018 Active gabapentin 300 mg capsule RxNorm: 307149 2 Capsule(s) PO TID with plans to decrease by 1 capsule every 2 weeks as able to tolerate 08/1610/14/2017 Active Tylenol-Codeine #3 300 mg-30 mg tablet RxNorm: 408965 1 Tablet(s) PO Q6 as needed for pain 08/08/2017 10/06/2017 Active Bevespi Aerosphere 9 mcg-4.8 mcg HFA aerosol inhaler RxNorm: 9823131 INH 07/11/2017 No Stop Date Active methocarbamol 500 mg tablet RxNorm: 346317 1 Tablet(s) PO TID as needed 07/10/2017 09/05/2017 Inactive gabapentin 800 mg tablet RxNorm: 711546 1 Tablet(s) PO TID 08/15/2017 Inactive Tylenol-Codeine #3 300 mg-30 mg tablet RxNorm: 657841 1 Tablet(s) PO Q6 as needed for pain 06/28/2017 07/12/2017 Inactive Chantix Continuing Month Box 1 mg tablet RxNorm: 860728 1 Tablet(s) PO UD 06/08/2017 07/13/2017 Inactive Tylenol-Codeine #3 300 mg-30 mg tablet RxNorm: 868114 1 Tablet(s) PO QID as needed 06/08/2017 06/22/2017 Inactive atorvastatin 20 mg tablet RxNorm: 276890 1 Tablet(s) PO daily 06/08/2017 07/07/2017 Inactive Robaxin 500 mg tablet RxNorm: 125837 1 Tablet(s) PO QID as needed 06/08/2017 07/07/2017 Inactive gabapentin 800 mg tablet RxNorm: 892330 1 Tablet(s) PO TID 07/04/2017 Inactive Chantix 1 mg tablet RxNorm: 565770 1 Tablet(s) PO BID No Start Date Active Bevespi Aerosphere 9 mcg-4.8 mcg HFA aerosol inhaler RxNorm: 1075490 1 INH BID No Start Date Active gabapentin 800 mg tablet RxNorm: 035683 1 Tablet(s) PO TID No Start Date 06/07/2017 Inactive atorvastatin 20 mg tablet RxNorm: 343693 1 Tablet(s) PO daily No Start Date 06/07/2017 Inactive Tylenol-Codeine #3 oral RxNorm: 454479 oral No Start Date 06/25/2017 Inactive Medication Administered No Medication Administered data Immunizations No Immunization data Assessments Condition Codes Effective Dates Dysuria ICD-10: R30.0 ICD-9: 788.1 08/31/2017 Interstitial emphysema ICD-10: J98.2 ICD-9: 518.1 08/16/2017 [...] Effective Dates Notes Full Exam - General 1995 Constitutional general appearance Overall: well developed 08/16/2017 [...] 06/08/2017 None Procedures Procedure Codes Date 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 PATIENT, LEVEL IV Diagnosis: Interstitial emphysema[ICD10: J98.2] Diagnosis: Mixed hyperlipidemia[ICD10: E78.2] Diagnosis: Low back pain[ICD10: M54.5] [facility] CPT- 4: 41388 08/16/2017 ([id number]) 51633 EST. PATIENT, LEVEL IV Diagnosis: Mixed hyperlipidemia[ICD10: E78.2] Diagnosis: Interstitial emphysema[ICD10: J98.2] [facility] CPT-4: 31726 07/10/2017 OFFICE VISIT, NEW - LEVEL 4 Diagnosis: Low back pain[ICD10: M54.5] Diagnosis: Radiculopathy, lumbar region[ICD10: M54.16] Diagnosis: Chronic obstructive pulmonary disease, unspecified[ICD10: J44.9] Diagnosis: Primary generalized (osteo)arthritis[ICD10: M15.0] Diagnosis: Mixed hyperlipidemia[ICD10: E78.2] [facility] CPT-4: 87065 06/08/2017 Plan of Care Planned Activity Notes Codes Status Date Appointment: Lab Draw 08/31/2017 Patient Education: Patient Medication Summary Completed 08/31/2017 Appointment: Tamia Fonseca WPtel: [phone] [facility] (15 min) Moderate 08/16/2017 Patient Education: Patient Medication Summary Completed 08/16/2017 Appointment: Tamia Fonseca WPtel: [facility] (30 min) Complex 07/10/2017 Patient Education: Patient Medication Summary Completed 07/10/2017 Patient Education: Smoking and Tobacco Addiction Completed 07/10/2017 Patient Education: Obesity Completed 07/10/2017 Appointment: Heidy Almanzar WPtel: [facility] New Patient 06/08/2017 Patient Education: Patient Medication Summary Completed 06/08/2017 Patient Education: Smoking and Tobacco Addiction Completed 06/08/2017 Patient Education: Obesity Completed 06/08/2017 Instructions No Instructions
--- OUTSIDE RECORDS SUMMARY | 2018-08-05 00:46 | XMS REPORT | CCD ---
Author Author Heidy Almanzar MD, [facility] Address [address] [place] [address] Phone Care Team Providers Care Fleet Manager Name Role Phone PP Unavailable CCM Unavailable Summary Purpose Interface Exchange Insurance Providers Payer name Policy type / Coverage type Covered constitution party ID Effective Begin Date Effective End Date Blue Cross Blue Shield [facility] Blue Cross/Blue Shield [id number] Unknown Unknown Family history Brother Diagnosis Age [...] Unknown Nolan 07/10/[address]: 9093560 Former smoker 07/10/2017 Number of children Unknown 2 06/08/2017 Employment Unknown Retired 06/08/2017 Number of years using tobacco Unknown 30 - 40 06/08/2017 Number of cigarettes/day Unknown 20 (One Pack) 06/08/[address]: 236135980 Never drinks alcohol 06/08/2017 Allergies, Adverse Reactions, [...] Start Date Stop Date Status Fill Instructions ibuprofen 800 mg tablet RxNorm: 556128 1 Tablet(s) PO BID 09/1510/05/2017 Active ibuprofen 800 mg tablet RxNorm: 459109 1 Tablet(s) PO BID 09/1509/14/2017 Inactive methocarbamol 500 mg tablet RxNorm: 358329 TAKE 1 TABLET BY MOUTH THREE TIMES DAILY NEEDED FOR MUSCLE SPASMS 09/06/2017 10/20/2017 Active Generic For:ROBAXIN 500 MG TABLET 09/06/2017 10:42:31 AM Pyridium 200 mg tablet RxNorm: 4146862 1 Tablet(s) PO TID as needed 08/31/2017 09/01/2017 Inactive Keflex 500 mg capsule RxNorm: 476739 1 Capsule(s) PO TID 201708/30/2017 Inactive Pyridium 200 mg tablet RxNorm: 5558476 1 Tablet(s) PO TID as needed 08/31/2017 08/30/2017 Inactive Keflex 500 mg capsule RxNorm: 565001 1 Capsule(s) PO TID 201709/06/2017 Inactive atorvastatin 20 mg tablet RxNorm: 690044 1 Tablet(s) PO daily 08/24/2017 09/22/2017 Active metoprolol succinate ER 25 mg tablet,extended release 24 hr RxNorm: 767416 1 Tablet(s) PO QPM 08/16/2017 03/13/2018 Active gabapentin 300 mg capsule RxNorm: 099434 2 Capsule(s) PO TID with plans to decrease by 1 capsule every 2 weeks as able to tolerate 08/1610/14/2017 Active Tylenol-Codeine #3 300 mg-30 mg tablet RxNorm: 748854 1 Tablet(s) PO Q6 as needed for pain 08/08/2017 10/06/2017 Active Bevespi Aerosphere 9 mcg-4.8 mcg HFA aerosol inhaler RxNorm: 2228131 INH 07/11/2017 No Stop Date Active methocarbamol 500 mg tablet RxNorm: 847232 1 Tablet(s) PO TID as needed 07/10/2017 09/05/2017 Inactive gabapentin 800 mg tablet RxNorm: 186579 1 Tablet(s) PO TID 08/15/2017 Inactive Tylenol-Codeine #3 300 mg-30 mg tablet RxNorm: 771779 1 Tablet(s) PO Q6 as needed for pain 06/28/2017 07/12/2017 Inactive Chantix Continuing Month Box 1 mg tablet RxNorm: 560686 1 Tablet(s) PO UD 06/08/2017 07/13/2017 Inactive Tylenol-Codeine #3 300 mg-30 mg tablet RxNorm: 136964 1 Tablet(s) PO QID as needed 06/08/2017 06/22/2017 Inactive atorvastatin 20 mg tablet RxNorm: 952562 1 Tablet(s) PO daily 06/08/2017 07/07/2017 Inactive Robaxin 500 mg tablet RxNorm: 971229 1 Tablet(s) PO QID as needed 06/08/2017 07/07/2017 Inactive gabapentin 800 mg tablet RxNorm: 800418 1 Tablet(s) PO TID 07/04/2017 Inactive Chantix 1 mg tablet RxNorm: 627243 1 Tablet(s) PO BID No Start Date Active Bevespi Aerosphere 9 mcg-4.8 mcg HFA aerosol inhaler RxNorm: 6813602 1 INH BID No Start Date Active gabapentin 800 mg tablet RxNorm: 496431 1 Tablet(s) PO TID No Start Date 06/07/2017 Inactive atorvastatin 20 mg tablet RxNorm: 756898 1 Tablet(s) PO daily No Start Date 06/07/2017 Inactive Tylenol-Codeine #3 oral RxNorm: 944011 oral No Start Date 06/25/2017 Inactive Medication [...] 06/08/2017 None Procedures Procedure Codes Date 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 PATIENT, LEVEL IV Diagnosis: Interstitial emphysema[ICD10: J98.2] Diagnosis: Mixed hyperlipidemia[ICD10: E78.2] Diagnosis: Low back pain[ICD10: M54.5] [facility] CPT- 4: 37795 08/16/2017 28543 92085 EST. PATIENT, LEVEL IV Diagnosis: Mixed hyperlipidemia[ICD10: E78.2] Diagnosis: Interstitial emphysema[ICD10: J98.2] [facility] CPT-4: 62008 07/10/2017 OFFICE VISIT, NEW - LEVEL 4 Diagnosis: Low back pain[ICD10: M54.5] Diagnosis: Radiculopathy, lumbar region[ICD10: M54.16] Diagnosis: Chronic obstructive pulmonary disease, unspecified[ICD10: J44.9] Diagnosis: Primary generalized (osteo)arthritis[ICD10: M15.0] Diagnosis: Mixed hyperlipidemia[ICD10: E78.2] [facility] CPT-4: 89711 06/08/2017 Plan of Care Planned Activity Notes [...] with gabapentin. 08/16/2017 Appointment: Tamia Fonseca WPtel: [address] [place], [place] [phone] (15 min) Moderate 08/16/2017 Patient Education: Patient [...] patient - bevespi samples - lost # [id number], exp 03/201807/10/2017 Appointment: Raymundo Tamia WPtel: [phone] [facility] (30 min) Complex 07/10/2017 Patient Education: Patient [...] to medications. 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 Fonseca in [place] Dr. Franklyn Orantes [facility] . COPD/Interstitial lung disease- pt taking [...] patient - bevespi samples - lost # [id number], exp 03/2018
--- OUTSIDE RECORDS SUMMARY | 2018-08-05 00:47 | XMS REPORT | CCD ---
Author Author Heidy Almanzar MD, [facility] Address [address] [place] [address] Phone Care Team Providers Care Bilingual Executive Assistant Name Role Phone PP Unavailable CCM Unavailable Summary Purpose Interface Exchange Insurance Providers Payer name Policy type / Coverage type Covered green party ID Effective Begin Date Effective End Date Blue Cross Blue Shield [facility] Blue Cross/Blue Shield [id number] Unknown Unknown Family history Brother Diagnosis Age [...] Unknown Nolan 07/10/[address]: 7488603 Former smoker 07/10/2017 Number of children Unknown 2 06/08/2017 Employment Unknown Retired 06/08/2017 Number of years using tobacco Unknown 30 - 40 06/08/2017 Number of cigarettes/day Unknown 20 (One Pack) 06/08/[address]: 110664764 Never drinks alcohol 06/08/2017 Allergies, Adverse Reactions, [...] Fill Instructions Pyridium 200 mg tablet RxNorm: 6955324 1 Tablet(s) PO TID as needed 08/31/2017 09/01/2017 Active Keflex 500 mg capsule RxNorm: 320596 1 Capsule(s) PO TID 201709/06/2017 Active Keflex 500 mg capsule RxNorm: 382773 1 Capsule(s) PO TID 201708/30/2017 Inactive Pyridium 200 mg tablet RxNorm: 6871927 1 Tablet(s) PO TID as needed 08/31/2017 08/30/2017 Inactive atorvastatin 20 mg tablet RxNorm: 978075 1 Tablet(s) PO daily 08/24/2017 09/22/2017 Active metoprolol succinate ER 25 mg tablet,extended release 24 hr RxNorm: 153139 1 Tablet(s) PO QPM 08/16/2017 03/13/2018 Active gabapentin 300 mg capsule RxNorm: 705681 2 Capsule(s) PO TID with plans to decrease by 1 capsule every 2 weeks as able to tolerate 08/1610/14/2017 Active Tylenol-Codeine #3 300 mg-30 mg tablet RxNorm: 023190 1 Tablet(s) PO Q6 as needed for pain 08/08/2017 10/06/2017 Active Bevespi Aerosphere 9 mcg-4.8 mcg HFA aerosol inhaler RxNorm: 3685225 INH 07/11/2017 No Stop Date Active methocarbamol 500 mg tablet RxNorm: 848501 1 Tablet(s) PO TID as needed 07/10/2017 No Stop Date Active gabapentin 800 mg tablet RxNorm: 146175 1 Tablet(s) PO TID 08/15/2017 Inactive Tylenol-Codeine #3 300 mg-30 mg tablet RxNorm: 407115 1 Tablet(s) PO Q6 as needed for pain 06/28/2017 07/12/2017 Inactive Chantix Continuing Month Box 1 mg tablet RxNorm: 808628 1 Tablet(s) PO UD 06/08/2017 07/13/2017 Inactive Tylenol-Codeine #3 300 mg-30 mg tablet RxNorm: 710916 1 Tablet(s) PO QID as needed 06/08/2017 06/22/2017 Inactive atorvastatin 20 mg tablet RxNorm: 550819 1 Tablet(s) PO daily 06/08/2017 07/07/2017 Inactive Robaxin 500 mg tablet RxNorm: 745088 1 Tablet(s) PO QID as needed 06/08/2017 07/07/2017 Inactive gabapentin 800 mg tablet RxNorm: 394894 1 Tablet(s) PO TID 07/04/2017 Inactive Chantix 1 mg tablet RxNorm: 959160 1 Tablet(s) PO BID No Start Date Active Bevespi Aerosphere 9 mcg-4.8 mcg HFA aerosol inhaler RxNorm: 2471916 1 INH BID No Start Date Active gabapentin 800 mg tablet RxNorm: 299551 1 Tablet(s) PO TID No Start Date 06/07/2017 Inactive atorvastatin 20 mg tablet RxNorm: 482319 1 Tablet(s) PO daily No Start Date 06/07/2017 Inactive Tylenol-Codeine #3 oral RxNorm: 794034 oral No Start Date 06/25/2017 Inactive Medication [...] 06/08/2017 None Procedures Procedure Codes Date 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 PATIENT, LEVEL IV Diagnosis: Interstitial emphysema[ICD10: J98.2] Diagnosis: Mixed hyperlipidemia[ICD10: E78.2] Diagnosis: Low back pain[ICD10: M54.5] [facility] CPT- 4: 03596 08/16/2017 ([id number]) 39832 EST. PATIENT, LEVEL IV Diagnosis: Mixed hyperlipidemia[ICD10: E78.2] Diagnosis: Interstitial emphysema[ICD10: J98.2] [facility] CPT-4: 12007 07/10/2017 OFFICE VISIT, NEW - LEVEL 4 Diagnosis: Low back pain[ICD10: M54.5] Diagnosis: Radiculopathy, lumbar region[ICD10: M54.16] Diagnosis: Chronic obstructive pulmonary disease, unspecified[ICD10: J44.9] Diagnosis: Primary generalized (osteo)arthritis[ICD10: M15.0] Diagnosis: Mixed hyperlipidemia[ICD10: E78.2] [facility] CPT-4: 41744 06/08/2017 Plan of Care Planned Activity Notes Codes Status Date Patient Education: Patient Medication Summary Completed 08/31/2017 Care Plan: Urine Culture Pending 08/31/2017 Visit Plan: COPD/Interstitial lung disease- pt [...] gabapentin. 08/16/2017 Appointment: [facility]on[facility]el[facility] [phone] [id number] (15 min) Moderate 08/16/2017 Patient Education: Patient [...] patient - bevespi samples - lost # [id number], exp 03/201807/10/2017 Appointment: [facility]onseca [facility]Ptel[facility] [phone] [id number] [place] (30 min) Complex 07/10/2017 Patient Education: Patient [...] to medications. 06/08/2017 Appointment: Heidy Almanzar WPtel: [address] [place], [place] [id number] New Patient 06/08/2017 Patient Education: Patient Medication [...] Minna Cabrera - in the building behind 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 Fonseca in [place] Dr. Franklyn Orantes [facility] . COPD/Interstitial lung disease- pt taking bevespi [...] patient - bevespi samples - lost # [id number], exp 03/2018
--- OUTSIDE RECORDS SUMMARY | 2018-08-05 00:47 | XMS REPORT ---
Author Author LAUREN BAIRD Organization [facility] Address [address] [place] [address] Care Team Providers Care Awning Hanger Helper Name Role Phone LAUREN BAIRD Unavailable PROBLEMS Type Condition ICD9-CM Code NTE17-EL Code Onset Dates Condition Status SNOMED Code Problem Restless leg syndrome G25.81 Active 21293865 Problem Gout M10.9 Active 29129403 Problem Acute right-sided low back pain with right-sided sciatica M54.41 Active 186693142 Problem Panlobular emphysema J43.1 Active 7626863 Problem Degenerative disc disease, cervical M50.30 Active 62919124 Problem Psoriatic arthritis L40.50 Active 305004931 Problem Neuropathy G62.9 Active 610704922 Problem Arthritis M19.90 Active 4083516 ALLERGIES No Information ENCOUNTERS Encounter Location Date Diagnosis [place] [id number] [place] [address] May, Degenerative disc disease, cervical M50.30 [place] [id number] [place] [address] May, [place] [id number] [place] [address] May, [place] [id number] [place] [address] May, Panlobular emphysema J43.1 ; Arthritis M19.90 ; Tobacco abuse Z72.0 and Tobacco abuse counseling Z71.6 [place] [id number] [place] [address] May, [place] [id number] [place] [address] May, Acute right-sided low back pain with right-sided sciatica M54.41 [facility] [id number] [place] [address] 30 Apr, 2017 Thrush, oral B37.0 [facility] [address] [address] 19 Apr, 2017 Cough R05 and Bronchitis J40 [place] [address] [address] 11 Apr, 2017 Acute right-sided low back pain with right-sided sciatica M54.41 [facility] [address] [address] 05 Apr, 2017 Psoriatic arthritis L40.50 and Arthritis M19.90 [place] [address] [address] Mar, Neuropathy G62.9 and Psoriatic arthritis L40.50 [place] [address] [address] Mar, Neuropathy G62.9 [place] [address] [address] Mar, [place] [address] [address] Mar, [facility] [id number] [place] [address] Mar, [facility] [id number] [place] [address] Feb, Acute cystitis with hematuria N30.01 and Dysuria R30.0 [place] [address] [address] Feb, Neuropathy G62.9 and Arthritis M19.90 [facility] [address] [address] Jun, Restless leg syndrome G25.81 ; Gout M10.9 and Degenerative disc disease, cervical M50.30 [facility] [address] [facility] [id number] [place] [address] Jun, [facility] [address] [facility] [id number] [place] [address] Jun, Psoriatic arthritis L40.50 and Restless leg syndrome G25.81 IMMUNIZATIONS No Known Immunizations SOCIAL HISTORY Never Assessed REASON FOR VISIT Controlled Substances PLAN OF CARE VITAL SIGNS MEDICATIONS Unknown Medications RESULTS No Results PROCEDURES No Known procedures INSTRUCTIONS MEDICATIONS ADMINISTERED No Known Medications MEDICAL (GENERAL) HISTORY Type Description Date Medical History osteoarthritis Medical History psoriatic arthritis (suspected) Medical History Metabolic X Surgical History hysterectomy, total with bilateral salpingo-oophorectomy (BSO ) 2008 Surgical History bital carpal tunnel Surgical History fluid drained from lung and lung scraping 02/2015 Hospitalization History Fall resulting in fluid/blood consolidation around lung.([place]) 02/2015 Hospitalization History Bacterial pneumonia and sepsis 01/2017 Hospitalization History Surgery Hospitalization History hospitalized for respiratory acidosis 05/2017
--- OUTSIDE RECORDS SUMMARY | 2018-08-05 00:47 | XMS REPORT ---
Author Author LAUREN BAIRD Organization [facility] Address [address] [place] [address] Care Team Providers Care Motorized Squad Sergeant Name Role Phone LAUREN BAIRD Unavailable PROBLEMS Type Condition ICD9-CM Code [id number] Code Onset Dates Condition Status SNOMED Code Problem Restless leg syndrome G25.81 Active 75369980 Problem Gout M10.9 Active 77260557 Problem Acute right-sided low back pain with right-sided sciatica M54.41 Active 580202132 Problem Panlobular emphysema J43.1 Active 1453162 Problem Degenerative disc disease, cervical M50.30 Active 82329012 Problem Psoriatic arthritis L40.50 Active 193972517 Problem Neuropathy G62.9 Active 635898379 Problem Arthritis M19.90 Active 7295180 ALLERGIES No Information ENCOUNTERS Encounter Location Date Diagnosis [place] [id number] [place] [address] May, Degenerative disc disease, cervical M50.30 [place] [id number] [place] [address]- [address] May, [place] [id number] [place] [address]- [address] May, [place] [id number] [place] [address]10- [address] May, Panlobular emphysema J43.1 ; Arthritis M19.90 ; Tobacco abuse Z72.0 and Tobacco abuse counseling Z71.6 [place] [id number] [place] [address]- 8[address] May, [place] [id number] [place] [address] 83104- 74[address] May, Acute right-sided low back pain with right-sided sciatica M54.41 [facility] [id number] [place] [address] 30 Apr, 2017 Thrush, oral B37.0 [facility] [address] [address] 19 Apr, 2017 Cough R05 and Bronchitis J40 [place] [address] [address] 11 Apr, 2017 Acute right-sided low back pain with right-sided sciatica M54.41 [facility] [address] [address] 05 Apr, 2017 Psoriatic arthritis L40.50 and Arthritis M19.90 [place] [address] [address]- [address] Mar, Neuropathy G62.9 and Psoriatic arthritis L40.50 [place] [address] [address] Mar, Neuropathy G62.9 [place] [address] [address] Mar, [place] [address] [address] Mar, [facility] [id number] [place] [address] 75177- 8[address] Mar, [facility] [id number] [place] [address] -2393 Feb, Acute cystitis with hematuria N30.01 and Dysuria R30.0 [place] [address] [address] Feb, Neuropathy G62.9 and Arthritis M19.90 [facility] [address] [address] Jun, Restless leg syndrome G25.81 ; Gout M10.9 and Degenerative disc disease, cervical M50.30 [facility] [address] [facility] [id number] [place] [address] Jun, [facility] [address] [facility] [id number] [place] [address] Jun, Psoriatic arthritis L40.50 and Restless leg syndrome G25.81 IMMUNIZATIONS No Known Immunizations SOCIAL HISTORY Never Assessed REASON FOR VISIT Refill request PLAN OF CARE VITAL SIGNS MEDICATIONS Unknown [...] History Fall resulting in fluid/blood consolidation around lung.([place]) 02/2015 Hospitalization History Bacterial pneumonia and sepsis 01/2017 Hospitalization History Surgery Hospitalization History hospitalized for respiratory acidosis 05/2017
--- OUTSIDE RECORDS SUMMARY | 2018-08-05 00:47 | XMS REPORT ---
Author Author LAUREN BAIRD Organization [facility] Address [address] [place] [address] Care Team Providers Care Mineral Surveyor Name Role Phone LAUREN BAIRD Unavailable PROBLEMS Type Condition ICD9-CM Code VDH81-GX Code Onset Dates Condition Status SNOMED Code Problem Restless leg syndrome G25.81 Active 22087058 Problem Gout M10.9 Active 02681726 Problem Acute right-sided low back pain with right-sided sciatica M54.41 Active 336020320 Problem Panlobular emphysema J43.1 Active 4323853 Problem Degenerative disc disease, cervical M50.30 Active 55966727 Problem Psoriatic arthritis L40.50 Active 546520247 Problem Neuropathy G62.9 Active 154294780 Problem Arthritis M19.90 Active 5027742 ALLERGIES No Information ENCOUNTERS Encounter Location Date Diagnosis [place] [id number] [place] [address]- [address] May, Degenerative disc disease, cervical M50.30 [place] [id number] [place] [address] 20086- 1360 May, [place] [id number] [place] [address] 90801- 9272 May, [place] [id number] [place] [address] 06901- 8720 May, Panlobular emphysema J43.1 ; Arthritis M19.90 ; Tobacco abuse Z72.0 and Tobacco abuse counseling Z71.6 [place] [id number] [place] [address] 80744- 6799 May, [place] [id number] [place] [address] 54114- 6[address] May, Acute right-sided low back pain with right-sided sciatica M54.41 [facility] [id number] [place] [address] 85337 -7273 30 Apr, 2017 Thrush, oral B37.0 [facility] [address] [address] 19 Apr, 2017 Cough R05 and Bronchitis J40 [place] [address] 39[address]- 0838 11 Apr, 2017 Acute right-sided low back pain with right-sided sciatica M54.41 [facility] [address] [address]- [address] 05 Apr, 2017 Psoriatic arthritis L40.50 and Arthritis M19.90 [place] [address] 18[address]- [address] Mar, Neuropathy G62.9 and Psoriatic arthritis L40.50 [place] [address] 24597- [address] Mar, Neuropathy G62.9 [place] [address] 29[address]- [address] Mar, [place] [address] 65[address]- [address] Mar, [facility] [id number] [place] [address] 40698- 8780 Mar, [facility] [id number] [place] [address] 7[address]88 -[address] Feb, Acute cystitis with hematuria N30.01 and Dysuria R30.0 [place] [address] 32814- [address] Feb, Neuropathy G62.9 and Arthritis M19.90 [facility] [address] [address]- [address] Jun, Restless leg syndrome G25.81 ; Gout M10.9 and Degenerative disc disease, cervical M50.30 [facility] [address] [facility] [id number] [place] [address] Jun, [facility] [address] [facility] [id number] [place] [address] Jun, Psoriatic arthritis L40.50 and Restless leg [...] History Fall resulting in fluid/blood consolidation around lung.([place]) 02/2015 Hospitalization History Bacterial pneumonia and sepsis 01/2017 Hospitalization History Surgery Hospitalization History hospitalized for respiratory acidosis 05/2017
--- OUTSIDE RECORDS SUMMARY | 2018-08-05 00:47 | XMS REPORT ---
Author Author LAUREN BAIRD Organization [facility] Address [address] [place] [address] Care Team Providers Care Concert Pianist Name Role Phone LAUREN BAIRD Unavailable PROBLEMS Type Condition ICD9-CM Code OXZ90-JE Code Onset Dates Condition Status SNOMED Code Problem Restless leg syndrome G25.81 Active 88900055 Problem Gout M10.9 Active 84805503 Problem Acute right-sided low back pain with right-sided sciatica M54.41 Active 005210817 Problem Panlobular emphysema J43.1 Active 2562929 Problem Degenerative disc disease, cervical M50.30 Active 24355085 Problem Psoriatic arthritis L40.50 Active 050918851 Problem Neuropathy G62.9 Active 431315438 Problem Arthritis M19.90 Active 2173515 ALLERGIES No Known Allergies ENCOUNTERS Encounter Location Date Diagnosis [place] [id number] [place] [address] 23041- 8958 May, Degenerative disc disease, cervical M50.30 [place] [id number] [place] [address] 91410- 3086 May, [place] [id number] [place] [address] 35864- 9421 May, [place] [id number] [place] [address] 30458- 7054 May, Panlobular emphysema J43.1 ; Arthritis M19.90 ; Tobacco abuse Z72.0 and Tobacco abuse counseling Z71.6 [place] [id number] [place] [address] 57966- 2774 May, [place] [id number] [place] [address] 60271- 6691 May, Acute right-sided low back pain with right-sided sciatica M54.41 [facility] [id number] [place] [address] 68971 -8759 30 Apr, 2017 Thrush, oral B37.0 [facility] [id number] [place] [address] 19174 -8139 19 Apr, 2017 Cough R05 and Bronchitis J40 [facility] [address] 12951- 8130 11 Apr, 2017 Acute right-sided low back pain with right-sided sciatica M54.41 [facility] [address] 55754- 7027 05 Apr, 2017 Psoriatic arthritis L40.50 and Arthritis M19.90 [place] [address] 41464- 3265 Mar, Neuropathy G62.9 and Psoriatic arthritis L40.50 [place] [address] 91304- 6907 Mar, Neuropathy G62.9 [place] [address] 59307- 9742 Mar, [place] [address] 27855- 7737 Mar, [facility] [id number] [place] [address] 21977- 1099 Mar, [facility] [id number] [place] [address] 35983 -1524 Feb, Acute cystitis with hematuria N30.01 and Dysuria R30.0 [place] [address] 76240- 6420 Feb, Neuropathy G62.9 and Arthritis M19.90 [facility] [id number] [place] [address] 65253- 4021 Jun, Restless leg syndrome G25.81 ; Gout M10.9 and Degenerative disc disease, cervical M50.30 [facility] [address] [facility] [id number] [place] [address] Jun, [facility] [address] [facility] [id number] [place] [address] 02 Jun, 2015 Psoriatic arthritis L40.50 and Restless leg syndrome G25.81 IMMUNIZATIONS No Known Immunizations SOCIAL HISTORY Never Assessed REASON FOR VISIT arthritis- Edwina PICKETT PLAN OF CARE VITAL SIGNS Height 62 in 2017-04-06 Weight 137.9 lbs 2017-04-06 Temperature 98.1 degrees Fahrenheit 2017-04-06 Heart Rate 66 bpm 2017-04-06 Respiratory Rate 20 2017-04-06 BMI 25.22 kg/m2 2017-04-06 Blood pressure systolic 134 mmHg 2017-04-06 Blood pressure diastolic 86 mmHg 2017-04-06 MEDICATIONS Medication Instructions Dosage Frequency Start Date End Date Duration Status Methocarbamol 500 mg Orally every 6 hours as needed 1-2 tablets Active Atorvastatin Calcium 20 mg Orally Once a day 1 tablet 24h Active Celebrex 200 mg Orally Once a day 1 capsule with food 24h Mar, Jun, 30 day(s) Active Acetaminophen-Codeine #3 300-30 MG Orally every 6 hrs 1 tablet as needed 6h Apr, 28 days Active Gabapentin 300 MG Orally Three times a day 2 capsules 8h Jun, Active Melatonin 3 MG Orally at bedtime 1 tablet at bedtime as needed with food Active RESULTS No Results PROCEDURES No Known procedures [...] History Fall resulting in fluid/blood consolidation around lung.([place]) 02/2015 Hospitalization History Bacterial pneumonia and sepsis 01/2017 Hospitalization History Surgery Hospitalization History hospitalized for respiratory acidosis 05/2017
--- OUTSIDE RECORDS SUMMARY | 2018-08-05 00:47 | XMS REPORT ---
Author Author LAUREN BAIRD Organization [facility] [place] Address [address] [place] [address] Care Team Providers Care Meter Inspector Name Role Phone LAUREN BAIRD Unavailable PROBLEMS Type Condition ICD9-CM Code [id number] Code Onset Dates Condition Status SNOMED Code Problem Restless leg syndrome G25.81 Active 42181681 Problem Gout M10.9 Active 81283285 Problem Acute right-sided low back pain with right-sided sciatica M54.41 Active 618405380 Problem Panlobular emphysema J43.1 Active 5721131 Problem Degenerative disc disease, cervical M50.30 Active 43796665 Problem Psoriatic arthritis L40.50 Active 686899671 Problem Neuropathy G62.9 Active 077159965 Problem Arthritis M19.90 Active 9943895 ALLERGIES No Information ENCOUNTERS Encounter Location Date Diagnosis [place] [id number] [place] [address] 14166- 0295 May, Degenerative disc disease, cervical M50.30 [place] [id number] [place] [address] 91208- 5021 May, [place] [id number] [place] [address] 13364- 6065 May, [place] [id number] [place] [address] 10090- 2114 May, Panlobular emphysema J43.1 ; Arthritis M19.90 ; Tobacco abuse Z72.0 and Tobacco abuse counseling Z71.6 [place] [id number] [place] [address] 17962- 9100 May, [place] [id number] [place] [address] 36642- 9581 May, Acute right-sided low back pain with right-sided sciatica M54.41 [facility] [id number] [place] [address] 87301 -0839 30 Apr, 2017 Thrush, oral B37.0 [facility] [address] 64106 -2134 19 Apr, 2017 Cough R05 and Bronchitis J40 [place] [address] 72201- 1430 11 Apr, 2017 Acute right-sided low back pain with right-sided sciatica M54.41 [facility] [place] [address] 67677- 4772 05 Apr, 2017 Psoriatic arthritis L40.50 and Arthritis M19.90 [place] [address] 60465- 0161 Mar, Neuropathy G62.9 and Psoriatic arthritis L40.50 [place] [address] 69122- 9941 Mar, Neuropathy G62.9 [place] [address] 38900- 8995 Mar, [place] [address] 44136- 0599 Mar, [facility] [place] [id number] [place] [address] 62221- 1867 Mar, [facility] [id number] [place] [address] 18490 -7598 Feb, Acute cystitis with hematuria N30.01 and Dysuria R30.0 [place] [address] 84152- 3451 Feb, Neuropathy G62.9 and Arthritis M19.90 [facility] [place] [address] 51147- 6574 Jun, Restless leg syndrome G25.81 ; Gout M10.9 and Degenerative disc disease, cervical M50.30 [facility] [place] [address] [facility] [id number] [place] [address]- 5178 Jun, [facility] [place] [address] [facility] [id number] [place] [address]- 2384 Jun, Psoriatic arthritis L40.50 and Restless leg syndrome G25.81 IMMUNIZATIONS No Known Immunizations SOCIAL HISTORY Never Assessed REASON FOR VISIT Referral PLAN OF CARE VITAL SIGNS MEDICATIONS Unknown [...] History Fall resulting in fluid/blood consolidation around lung.([place]) 02/2015 Hospitalization History Bacterial pneumonia and sepsis 01/2017 Hospitalization History Surgery Hospitalization History hospitalized for respiratory acidosis 05/2017
--- OUTSIDE RECORDS SUMMARY | 2018-08-05 00:47 | XMS REPORT ---
Author Author STOKESCYNTHIA Mccray Organization [facility] Address [address] [place] [address] Care Team Providers Care Image Processing Engineer Name Role Phone STOKESCYNTHIA Mccary Unavailable PROBLEMS Type Condition ICD9-CM Code VLD57-TF Code Onset Dates Condition Status SNOMED Code Problem Restless leg syndrome G25.81 Active 35267844 Problem Gout M10.9 Active 92676500 Problem Acute right-sided low back pain with right-sided sciatica M54.41 Active 613372327 Problem Panlobular emphysema J43.1 Active 9141675 Problem Degenerative disc disease, cervical M50.30 Active 98908790 Problem Psoriatic arthritis L40.50 Active 454484477 Problem Neuropathy G62.9 Active 168565389 Problem Arthritis M19.90 Active 0418710 ALLERGIES No Known Allergies ENCOUNTERS Encounter Location Date Diagnosis [place] [address] 36563- 3163 May, Degenerative disc disease, cervical M50.30 [place] [id number] [place] [address] 24048- 8219 May, [place] [id number] [place] [address] 51225- 7030 May, [place] [id number] [place] [address] 62391- 8287 May, Panlobular emphysema J43.1 ; Arthritis M19.90 ; Tobacco abuse Z72.0 and Tobacco abuse counseling Z71.6 [place] [id number] [place] [address] 56916- 0584 May, [place] [id number] [place] [address] 62038- 4330 May, Acute right-sided low back pain with right-sided sciatica M54.41 [facility] [id number] [place] [address] 18735 -8984 30 Apr, 2017 Thrush, oral B37.0 [facility] [id number] [place] [address] 18100 -7573 19 Apr, 2017 Cough R05 and Bronchitis J40 [facility] [address] 49467- 5477 11 Apr, 2017 Acute right-sided low back pain with right-sided sciatica M54.41 [place] [id number] [place] [address] 01445- 5757 05 Apr, 2017 Psoriatic arthritis L40.50 and Arthritis M19.90 [place] [id number] [place] [address] 11316- 4052 Mar, Neuropathy G62.9 and Psoriatic arthritis L40.50 [place] [address] 29933- 0194 Mar, Neuropathy G62.9 [place] [address] 54280- 1121 Mar, [facility] [address] [id number] [place] [address] 11233- 6671 Mar, [place] [id number] [place] [address] 27421- 6372 Mar, [facility] [id number] [place] [address] 87256 -1472 Feb, Acute cystitis with hematuria N30.01 and Dysuria R30.0 [place] [address] 41517- 9089 Feb, Neuropathy G62.9 and Arthritis M19.90 [facility] [address] [id number] [place] [address] 05749- 2913 Jun, Restless leg syndrome G25.81 ; Gout M10.9 and Degenerative disc disease, cervical M50.30 [facility] [address] [facility] [id number] [place] [address]- 9555 Jun, [facility] [address] [facility] [id number] [place] [address]- 5495 02 Jun, 2015 Psoriatic arthritis L40.50 and Restless leg syndrome G25.81 IMMUNIZATIONS No Known Immunizations SOCIAL HISTORY Never Assessed REASON FOR VISIT tongue pain. thinks she possibly has thrush. been like this for 3 days. [email or web address] PLAN OF CARE Activity Details Follow Up prn Reason: VITAL SIGNS Height 62 in 2017-05-13 Weight 138.6 lbs 2017-05-13 Temperature 97.9 degrees Fahrenheit 2017-05-13 Heart Rate 84 bpm 2017-05-13 Respiratory Rate 20 2017-05-13 BMI 25.35 kg/m2 2017-05-13 Blood pressure systolic 156 mmHg 2017-05-13 Blood pressure diastolic 84 mmHg 2017-05-13 MEDICATIONS Medication Instructions Dosage Frequency Start Date End Date Duration Status Sdhamfy-Qfihpu-Gz Chondr-MSM [id number] MG Orally Three times a day 1 tablet 8h Active Nystatin 390345 UNIT/ML Mouth/Throat Four times a day 4 ml 6h Apr, May, 14 days Active Gabapentin 800 MG Orally Three times a day 1 tablet 8h 16 Jun, 2015 Active ProAir HFA 108 (90 Base) MCG/ACT Inhalation every 4 hrs 2 puffs as needed 4h 19 Apr, 2017 7 days Active Methocarbamol 500 MG Orally every 6 hours as needed 1-2 tablets 11 Active Atorvastatin Calcium 20 mg Orally Once a day 1 tablet 24h Active RESULTS No Results PROCEDURES No Known [...]
--- OUTSIDE RECORDS SUMMARY | 2018-08-05 00:48 | XMS REPORT ---
Author Author ANTONINO GARNER [facility] Address [address] [place] [address] Care Team Providers Care Solar Process Engineer Name Role Phone ANTONINO GARNER Unavailable PROBLEMS Type Condition ICD9-CM Code CLG10-HL Code Onset Dates Condition Status SNOMED Code Problem Restless leg syndrome G25.81 Active 79687162 Problem Gout M10.9 Active 43070958 Problem Acute right-sided low back pain with right-sided sciatica M54.41 Active 950364593 Problem Panlobular emphysema J43.1 Active 3202979 Problem Degenerative disc disease, cervical M50.30 Active 33675559 Problem Psoriatic arthritis L40.50 Active 206179944 Problem Neuropathy G62.9 Active 733067445 Problem Arthritis M19.90 Active 6950871 ALLERGIES No Known Allergies ENCOUNTERS Encounter Location Date Diagnosis [place] [id number] [place] [address] 68672- 6224 May, Degenerative disc disease, cervical M50.30 [facility] [id number] [place] [address] 77780- 1578 May, [facility] [id number] [place] [address] 82313- 1263 May, [facility] [id number] [place] [address] 58084- 5000 May, Panlobular emphysema J43.1 ; Arthritis M19.90 ; Tobacco abuse Z72.0 and Tobacco abuse counseling Z71.6 [facility] [id number] [place] [address] 43004- 8711 May, [facility] [id number] [place] [address] 01187- 6881 May, Acute right-sided low back pain with right-sided sciatica M54.41 [facility] [id number] [place] [address] 48722 -6470 30 Apr, 2017 Thrush, oral B37.0 [facility] [id number] [place] [address] 54408 -6672 19 Apr, 2017 Cough R05 and Bronchitis J40 [facility] [address] 88252- 1890 11 Apr, 2017 Acute right-sided low back pain with right-sided sciatica M54.41 [facility] [address] 00558- 7883 05 Apr, 2017 Psoriatic arthritis L40.50 and Arthritis M19.90 [place] [address] 39549- 1209 Mar, Neuropathy G62.9 and Psoriatic arthritis L40.50 [place] [address] 22429- 7962 Mar, Neuropathy G62.9 [place] [address] 22161- 4278 Mar, [facility] [id number] [place] [address] 62509- 2836 Mar, [place] [id number] [place] [address] 61560- 5055 Mar, [facility] [id number] [place] [address] 40436 -4231 Feb, Acute cystitis with hematuria N30.01 and Dysuria R30.0 [place] [address] 12514- 1018 Feb, Neuropathy G62.9 and Arthritis M19.90 [facility] [id number] [place] [address] 45806- 2341 Jun, Restless leg syndrome G25.81 ; Gout M10.9 and Degenerative disc disease, cervical M50.30 [facility] [address] [facility] [id number] [place] [address]- 5[address] Jun, [facility] [address] [facility] [id number] [place] [address]- 0740 Jun, Psoriatic arthritis L40.50 and Restless leg syndrome G25.81 IMMUNIZATIONS No Known Immunizations SOCIAL HISTORY Never Assessed REASON FOR VISIT cough/congestion started a couple days ago with trouble breathing JStrasserRN PLAN OF CARE Activity Details Follow Up prn Reason: VITAL SIGNS Height 62 in 2017-05-02 Weight 140.8 lbs 2017-05-02 Temperature 97.9 degrees Fahrenheit 2017-05-02 Heart Rate 90 bpm 2017-05-02 Respiratory Rate 20 2017-05-02 Oximetry 95 % 2017-05-02 BMI 25.75 kg/m2 2017-05-02 Blood pressure systolic 160 mmHg 2017-05-02 Blood pressure diastolic 98 mmHg 2017-05-02 MEDICATIONS Medication Instructions Dosage Frequency Start Date End Date Duration Status Xhrpbcf-Xfsxpl-Ta Chondr-MSM [phone] MG Orally Three times a day 1 tablet 8h Active Melatonin 3 MG Orally at bedtime 1 tablet at bedtime as needed with food Active Methocarbamol 500 MG Orally every 6 hours as needed 1-2 tablets Active Azithromycin 250 MG Orally Once a day 2 tablets on the first day, then 1 tablet daily for 4 days 24h Apr, Apr, 5 day(s) Active Atorvastatin Calcium 20 mg Orally Once a day 1 tablet 24h Active Ghent 10-325 MG Orally every 6 hrs 1 tablet as needed 6h Apr, Active ProAir HFA 108 (90 Base) MCG/ACT Inhalation every 4 hrs 2 puffs as needed 4h Apr, 7 days Active Gabapentin 800 MG Orally Three times a day 1 tablet 8h Jun, Active PredniSONE 20 MG Orally Once a day 2 tablet 24h Apr, Apr, 5 days Active RESULTS Name Result Date Reference Range Xray : Chest (IN HOUSE) 2017-05-02 PROCEDURES Procedure Date Ordered Result Body Site ALBUTEROL UNIT DOSE FORM INHALED 2017-05-02 N/A MEASURE BLOOD OXYGEN LEVEL May 02, 2017 ALBUTEROL INHAL UNIT DOSE 1 MG May 02, 2017 CHEST X-RAY May 02, 2017 INSTRUCTIONS MEDICATIONS ADMINISTERED No Known Medications MEDICAL (GENERAL) HISTORY Type Description Date Medical History osteoarthritis Medical History psoriatic arthritis (suspected) Medical History Metabolic X Surgical History hysterectomy, total with bilateral salpingo-oophorectomy (BSO ) 2008 Surgical History bital carpal tunnel Surgical History fluid drained from lung and lung scraping 02/2015 Hospitalization History Fall resulting in fluid/blood consolidation around lung.([place]) 02/2015 Hospitalization History Bacterial pneumonia and sepsis 01/2017 Hospitalization History Surgery Hospitalization History hospitalized for respiratory acidosis 05/2017
--- OUTSIDE RECORDS SUMMARY | 2018-08-05 00:48 | XMS REPORT ---
Author Author LAUREN BAIRD Organization [facility] Address [address] [place] [address] Care Team Providers Care Carbonation Equipment Operator Name Role Phone LAUREN BAIRD Unavailable PROBLEMS Type Condition ICD9-CM Code PAS51-FN Code Onset Dates Condition Status SNOMED Code Problem Restless leg syndrome G25.81 Active 95428810 Problem Gout M10.9 Active 74690767 Problem Acute right-sided low back pain with right-sided sciatica M54.41 Active 432115964 Problem Panlobular emphysema J43.1 Active 7244547 Problem Degenerative disc disease, cervical M50.30 Active 12291068 Problem Psoriatic arthritis L40.50 Active 292317033 Problem Neuropathy G62.9 Active 961260129 Problem Arthritis M19.90 Active 2119059 ALLERGIES No Information ENCOUNTERS Encounter Location Date Diagnosis [place] [id number] [place] [address]109- 1966 May, Degenerative disc disease, cervical M50.30 [place] [id number] [place] [address] 12394- 4941 May, [place] [id number] [place] [address] 95795- 6040 May, [place] [id number] [place] [address] 84870- 1448 May, Panlobular emphysema J43.1 ; Arthritis M19.90 ; Tobacco abuse Z72.0 and Tobacco abuse counseling Z71.6 [place] [id number] [place] [address] 08964- 9701 May, [place] [id number] [place] [address] 17424- 3254 May, Acute right-sided low back pain with right-sided sciatica M54.41 [facility] [id number] [place] [address] 99035 -4286 30 Apr, 2017 Thrush, oral B37.0 [facility] [address] 27627 -0915 19 Apr, 2017 Cough R05 and Bronchitis J40 [place] [address] 25525- 6903 11 Apr, 2017 Acute right-sided low back pain with right-sided sciatica M54.41 [facility] [address] 62721- 2459 05 Apr, 2017 Psoriatic arthritis L40.50 and Arthritis M19.90 [place] [address] 15960- 8757 Mar, Neuropathy G62.9 and Psoriatic arthritis L40.50 [place] [address] 88295- 8167 Mar, Neuropathy G62.9 [place] [address] 45346- 8596 Mar, [place] [address] 66449- 3589 Mar, [facility] [id number] [place] [address] 85344- 8736 Mar, [facility] [id number] [place] [address] 50381 -5793 Feb, Acute cystitis with hematuria N30.01 and Dysuria R30.0 [place] [address] 53859- 6662 Feb, Neuropathy G62.9 and Arthritis M19.90 [facility] [address] 90752- 8613 Jun, Restless leg syndrome G25.81 ; Gout M10.9 and Degenerative disc disease, cervical M50.30 [facility] [address] [facility] [id number] [place] [address]- 7426 Jun, [facility] [address] [facility] [id number] [place] [address]- 6000 Jun, Psoriatic arthritis L40.50 and Restless leg syndrome G25.81 IMMUNIZATIONS No Known Immunizations SOCIAL HISTORY Never Assessed REASON FOR VISIT Requests return call PLAN OF CARE VITAL SIGNS MEDICATIONS Unknown [...] History Fall resulting in fluid/blood consolidation around lung.([place]) 02/2015 Hospitalization History Bacterial pneumonia and sepsis 01/2017 Hospitalization History Surgery Hospitalization History hospitalized for respiratory acidosis 05/2017
--- OUTSIDE RECORDS SUMMARY | 2018-08-05 00:48 | XMS REPORT ---
Author Author JENNY BRUCE Organization [facility] Address [address] [place] [address] Care Team Providers Care Hypo Splasher Name Role Phone JENNY BRUCE Unavailable PROBLEMS Type Condition ICD9-CM Code [id number] Code Onset Dates Condition Status SNOMED Code Problem Restless leg syndrome G25.81 Active 21320473 Problem Gout M10.9 Active 30259487 Problem Acute right-sided low back pain with right-sided sciatica M54.41 Active 582132556 Problem Panlobular emphysema J43.1 Active 9456744 Problem Degenerative disc disease, cervical M50.30 Active 38387175 Problem Psoriatic arthritis L40.50 Active 829099712 Problem Neuropathy G62.9 Active 468678344 Problem Arthritis M19.90 Active 3911235 ALLERGIES No Information ENCOUNTERS Encounter Location Date Diagnosis [place] [id number] [place] [address] 40267- 5180 May, Degenerative disc disease, cervical M50.30 [facility] [id number] [place] [address] 37395- 1592 May, [place] [address] [place] [address] 22189- 1300 May, [place] [id number] [place] [address] 41557- 1021 May, Panlobular emphysema J43.1 ; Arthritis M19.90 ; Tobacco abuse Z72.0 and Tobacco abuse counseling Z71.6 [place] [id number] [place] [address] 98004- 1959 May, [place] [id number] [place] [address] 11063- 2851 May, Acute right-sided low back pain with right-sided sciatica M54.41 [facility] [id number] [place] [address] 06301 -1077 30 Apr, 2017 Thrush, oral B37.0 [facility] [id number] [place] [address] 57647 -3835 19 Apr, 2017 Cough R05 and Bronchitis J40 [facility] [address] 59539- 1543 11 Apr, 2017 Acute right-sided low back pain with right-sided sciatica M54.41 [facility] [id number] [place] [address] 11634- 3462 05 Apr, 2017 Psoriatic arthritis L40.50 and Arthritis M19.90 [facility] [address] 66144- 0729 Mar, Neuropathy G62.9 and Psoriatic arthritis L40.50 [place] [address] 72867- 5487 Mar, Neuropathy G62.9 [place] [address] 56447- 0883 Mar, [facility] [address] 89326- 4242 Mar, [place] [id number] [place] [address] 30778- 8033 Mar, [facility] [id number] [place] [address] 17074 -1480 Feb, Acute cystitis with hematuria N30.01 and Dysuria R30.0 [place] [address] 76086- 0441 Feb, Neuropathy G62.9 and Arthritis M19.90 [facility] [id number] [place] [address] 81741- 6733 Jun, Restless leg syndrome G25.81 ; Gout M10.9 and Degenerative disc disease, cervical M50.30 [facility] [address] [facility] [id number] [place] [address] Jun, [facility] [address] [facility] [id number] [place] [address] 5567 Jun, Psoriatic arthritis L40.50 and Restless leg syndrome G25.81 IMMUNIZATIONS No Known Immunizations SOCIAL HISTORY Never Assessed REASON FOR VISIT NARCOTICS VIOLATION PLAN OF CARE VITAL SIGNS MEDICATIONS Unknown [...] History Fall resulting in fluid/blood consolidation around lung.([place]) 02/2015 Hospitalization History Bacterial pneumonia and sepsis 01/2017 Hospitalization History Surgery Hospitalization History hospitalized for respiratory acidosis 05/2017
--- OUTSIDE RECORDS SUMMARY | 2018-08-05 00:48 | XMS REPORT ---
Author Author ANTONINO GARNER [facility] IN [facility] Address [address] [place] [address] Care Team Providers Care Supervisor Wood Room Name Role Phone ANTONINO GARNER Unavailable PROBLEMS Type Condition ICD9-CM Code CEI23-RJ Code Onset Dates Condition Status SNOMED Code Problem Restless leg syndrome G25.81 Active 03825267 Problem Gout M10.9 Active 70147189 Problem Acute right-sided low back pain with right-sided sciatica M54.41 Active 070253512 Problem Panlobular emphysema J43.1 Active 2196483 Problem Degenerative disc disease, cervical M50.30 Active 92976568 Problem Psoriatic arthritis L40.50 Active 467114254 Problem Neuropathy G62.9 Active 635643869 Problem Arthritis M19.90 Active 8633002 ALLERGIES No Known Allergies ENCOUNTERS Encounter Location Date Diagnosis [place] [id number] [place] [address] 76735- 0937 May, Degenerative disc disease, cervical M50.30 [facility] [id number] [place] [address] 98645- 3194 May, [facility] [id number] [place] [address] 77672- 9415 May, [facility] [id number] [place] [address] 72098- 7898 May, Panlobular emphysema J43.1 ; Arthritis M19.90 ; Tobacco abuse Z72.0 and Tobacco abuse counseling Z71.6 [facility] [id number] [place] [address] 21939- 9088 May, [facility] [id number] [place] [address] 11120- 8278 May, Acute right-sided low back pain with right-sided sciatica M54.41 [facility] [id number] [place] [address] 78802 -3052 30 Apr, 2017 Thrush, oral B37.0 [facility] [id number] [place] [address] 49254 -4678 19 Apr, 2017 Cough R05 and Bronchitis J40 [facility] [address] 14907- 0507 11 Apr, 2017 Acute right-sided low back pain with right-sided sciatica M54.41 [facility] [address] 34768- 5178 05 Apr, 2017 Psoriatic arthritis L40.50 and Arthritis M19.90 [place] [address] 89468- 8714 Mar, Neuropathy G62.9 and Psoriatic arthritis L40.50 [place] [address] 68904- 6614 Mar, Neuropathy G62.9 [place] [address] 57883- 2855 Mar, [facility] [id number] [place] [address] 53521- 3860 Mar, [place] [id number] [place] [address] 20074- 9284 Mar, [facility] [id number] [place] [address] 99549 -1736 Feb, Acute cystitis with hematuria N30.01 and Dysuria R30.0 [place] [address] 19299- 4188 Feb, Neuropathy G62.9 and Arthritis M19.90 [facility] [id number] [place] [address] 34017- 6580 Jun, Restless leg syndrome G25.81 ; Gout M10.9 and Degenerative disc disease, cervical M50.30 [facility] [address] [facility] [id number] [place] [address] 6259 Jun, [facility] [address] [facility] [id number] [place] [address]- 8279 Jun, Psoriatic arthritis L40.50 and Restless leg syndrome G25.81 IMMUNIZATIONS No Known Immunizations SOCIAL HISTORY Never Assessed REASON FOR VISIT dysuria while voiding and even at rest, urgency...with little results. pt has even had blood in her underwear. also had loose stools. been like this for 3 days. craig, pt would like her tylenol #3 refilled. if not in here...she would like matthew silverio aprn called to refill them PLAN OF CARE Activity Details Follow Up prn Reason: VITAL SIGNS Height 62 in 2017-03-10 Weight 136.6 lbs 2017-03-10 Temperature 97.8 degrees Fahrenheit 2017-03-10 Heart Rate 88 bpm 2017-03-10 Respiratory Rate 20 2017-03-10 BMI 24.98 kg/m2 2017-03-10 Blood pressure systolic 142 mmHg 2017-03-10 Blood pressure diastolic 92 mmHg 2017-03-10 MEDICATIONS Medication Instructions Dosage Frequency Start Date End Date Duration Status Gabapentin 600 MG Orally Three times a day 1 capsule 8h Jun, Active Acetaminophen-Codeine #3 300-30 MG Orally every 6 hrs 1 tablet as needed 6h Active Atorvastatin Calcium 20 mg Orally Once a day 1 tablet 24h Active Pyridium 200 MG Orally Three times a day 1 tablet after meals 8h Feb, Feb, 2 day(s) Active Methocarbamol 500 mg Orally every 6 hours as needed 1-2 tablets Active Bactrim DS 800-160 MG Orally twice daily 1 tablet Feb, Mar, 5 days Active RESULTS Name Result Date Reference Range UA LONG DIP (IN HOUSE) 2017-03-10 Lot # [id number] Exp date 2017 Clarity clear Color red Odor none GLU negative FLORENCE 2+ KET 1+ SG 1.020 BLO 3+ pH 6.5 Protein 3+ URO 1.0 NIT positive YANELI 3+ Lot # [id number] Exp date mar 2017 CULTURE, URINE 2017-03-10 Urine Culture, Routine Final report Result 1 Escherichia coli Antimicrobial Susceptibility PROCEDURES Procedure Date Ordered Result Body Site URINALYSIS, AUTO, W/O SCOPE March 10, 2017 URINE CULTURE/COLONY COUNT March 10, 2017 INSTRUCTIONS MEDICATIONS ADMINISTERED No Known Medications MEDICAL (GENERAL) HISTORY Type Description Date Medical History osteoarthritis Medical History psoriatic arthritis (suspected) Medical History Metabolic X Surgical History hysterectomy, total with bilateral salpingo-oophorectomy (BSO ) 2008 Surgical History bital carpal tunnel Surgical History fluid drained from lung and lung scraping 02/2015 Hospitalization History Fall resulting in fluid/blood consolidation around lung.([place]) 02/2015 Hospitalization History Bacterial pneumonia and sepsis 01/2017 Hospitalization History Surgery Hospitalization History hospitalized for respiratory acidosis 05/2017
--- OUTSIDE RECORDS SUMMARY | 2018-08-05 00:48 | XMS REPORT ---
Author Author LAUREN BAIRD Organization [facility] Address [address] [place] [address] Care Team Providers Care Chief Digital Officer Name Role Phone LAUREN BAIRD Unavailable PROBLEMS Type Condition ICD9-CM Code XQZ45-QS Code Onset Dates Condition Status SNOMED Code Problem Restless leg syndrome G25.81 Active 19694042 Problem Gout M10.9 Active 67281241 Problem Acute right-sided low back pain with right-sided sciatica M54.41 Active 799038833 Problem Panlobular emphysema J43.1 Active 5172071 Problem Degenerative disc disease, cervical M50.30 Active 13578947 Problem Psoriatic arthritis L40.50 Active 482277600 Problem Neuropathy G62.9 Active 114752490 Problem Arthritis M19.90 Active 5216297 ALLERGIES No Known Allergies ENCOUNTERS Encounter Location Date Diagnosis [place] [id number] [place] [address] 82272- 5566 May, Degenerative disc disease, cervical M50.30 [place] [id number] [place] [address] 61416- 4950 May, [place] [id number] [place] [address] 97874- 1156 May, [place] [id number] [place] [address] 35819- 2320 May, Panlobular emphysema J43.1 ; Arthritis M19.90 ; Tobacco abuse Z72.0 and Tobacco abuse counseling Z71.6 [place] [id number] [place] [address] 47600- 7466 May, [place] [id number] [place] [address] 32338- 9101 May, Acute right-sided low back pain with right-sided sciatica M54.41 [facility] [id number] [place] [address] 04320 -6987 30 Apr, 2017 Thrush, oral B37.0 [facility] [id number] [place] [address] 32883 -1585 19 Apr, 2017 Cough R05 and Bronchitis J40 [facility] [address] 11459- 1660 11 Apr, 2017 Acute right-sided low back pain with right-sided sciatica M54.41 [facility] [address] 04893- 5629 05 Apr, 2017 Psoriatic arthritis L40.50 and Arthritis M19.90 [place] [address] 92219- 3541 Mar, Neuropathy G62.9 and Psoriatic arthritis L40.50 [place] [address] 90559- 8110 Mar, Neuropathy G62.9 [place] [address] 37102- 4459 Mar, [place] [address] 74321- 0245 Mar, [facility] [id number] [place] [address] 30004- 1614 Mar, [facility] [id number] [place] [address] 10508 -1421 Feb, Acute cystitis with hematuria N30.01 and Dysuria R30.0 [place] [address] 54613- 1103 Feb, Neuropathy G62.9 and Arthritis M19.90 [facility] [id number] [place] [address] 67396- 9784 Jun, Restless leg syndrome G25.81 ; Gout M10.9 and Degenerative disc disease, cervical M50.30 [facility] [address] [facility] [id number] [place] [address]- 2950 Jun, [facility] [address] [facility] [id number] [address]- 8552 Jun, Psoriatic arthritis L40.50 and Restless leg syndrome G25.81 IMMUNIZATIONS No Known Immunizations SOCIAL HISTORY Never Assessed REASON FOR VISIT Establish Care - Pt has seen Haily and Dr. Sigala and she has lost her insurance and she owes too much money and he will not even talk to her. - Eboni PICKETT, Pt states that she needs some scripts filled. , She states that she has psoriatic arthritis. She states things are starting to pop out which very concerning to her. She has some nerve pain., Right wrist pain that is "disabling and brings tears to her eyes" , Thinks she may need methotrexate treatment even though she hates it., Was at in January and was admitted for bacterial pneumonia and sepsis. Stayed about a week and is better now., Has some allergy congestion, Complete hysterectomy and oophrectomy in 2008., Has terrible anxiety that she takes Neurontin for and states "Claudia got to get that refilled" because that makes her have stomach problems., States that the Neurontin also helps for her menopause symptoms and would like it increased to 4 times a day., She states that she sees a Brake Repairer and that they disagree with the diagnosis of Gout. Stating "I DO NOT HAVE GOUT" She states it needs to be taken off her chart. PLAN OF CARE Activity Details Follow Up 4 Weeks Reason:arthritis VITAL SIGNS Height 62 in 2017-03-02 Weight 135.2 lbs 2017-03-02 Temperature 99.2 degrees Fahrenheit 2017-03-02 Heart Rate 120 bpm 2017-03-02 Respiratory Rate 22 2017-03-02 BMI 24.73 kg/m2 2017-03-02 Blood pressure systolic 124 mmHg 2017-03-02 Blood pressure diastolic 60 mmHg 2017-03-02 MEDICATIONS Medication Instructions Dosage Frequency Start Date End Date Duration Status Acetaminophen-Codeine #3 300-30 MG Orally every 6 hrs 1 tablet as needed 6h Active Gabapentin 600 MG Orally Three times a day 1 capsule 8h Jun, Active Methocarbamol 500 mg Orally every 6 [...] Fall resulting in fluid/blood consolidation around lung.([place]) 02/2015 Hospitalization History Bacterial pneumonia and sepsis 01/2017 Hospitalization History Surgery Hospitalization History hospitalized for respiratory acidosis 05/2017
--- OUTSIDE RECORDS SUMMARY | 2018-08-05 00:48 | XMS REPORT ---
Author Author LAUREN BAIRD Organization [facility] Address [address] [place] [address] Care Team Providers Care Commercial Tire Service Technician Name Role Phone LAUREN BAIRD Unavailable PROBLEMS Type Condition ICD9-CM Code QPY13-UU Code Onset Dates Condition Status SNOMED Code Problem Restless leg syndrome G25.81 Active 75055425 Problem Gout M10.9 Active 09257464 Problem Acute right-sided low back pain with right-sided sciatica M54.41 Active 600163214 Problem Panlobular emphysema J43.1 Active 0023621 Problem Degenerative disc disease, cervical M50.30 Active 99047653 Problem Psoriatic arthritis L40.50 Active 427712509 Problem Neuropathy G62.9 Active 079316148 Problem Arthritis M19.90 Active 2109010 ALLERGIES No Information ENCOUNTERS Encounter Location Date Diagnosis [place] [id number] [place] [address] 67426- 0136 May, Degenerative disc disease, cervical M50.30 [place] [id number] [place] [address] 07322- 6758 May, [place] [id number] [place] [address] 44860- 0799 May, [place] [id number] [place] [address] 41839- 6342 May, Panlobular emphysema J43.1 ; Arthritis M19.90 ; Tobacco abuse Z72.0 and Tobacco abuse counseling Z71.6 [place] [id number] [place] [address] 21403- 2530 May, [place] [id number] [place] [address] 05397- 2359 May, Acute right-sided low back pain with right-sided sciatica M54.41 [facility] [id number] [place] [address] 74081 -2436 30 Apr, 2017 Thrush, oral B37.0 [facility] [address] 99249 -9131 19 Apr, 2017 Cough R05 and Bronchitis J40 [place] [address] 85668- 6127 11 Apr, 2017 Acute right-sided low back pain with right-sided sciatica M54.41 [facility] [address] 95026- 1681 05 Apr, 2017 Psoriatic arthritis L40.50 and Arthritis M19.90 [place] [address] 81728- 9336 Mar, Neuropathy G62.9 and Psoriatic arthritis L40.50 [place] [address] 95622- 2838 Mar, Neuropathy G62.9 [place] [address] 36201- 7064 Mar, [place] [address] 82961- 8155 Mar, [facility] [id number] [place] [address] 31916- 9331 Mar, [facility] [id number] [place] [address] 63037 -7770 Feb, Acute cystitis with hematuria N30.01 and Dysuria R30.0 [place] [address] 04103- 8158 Feb, Neuropathy G62.9 and Arthritis M19.90 [facility] [address] 54561- 9086 Jun, Restless leg syndrome G25.81 ; Gout M10.9 and Degenerative disc disease, cervical M50.30 [facility] [address] [facility] [id number] [place] [address]- 5188 Jun, [facility] [address] [facility] [id number] [place] [address]- 9373 Jun, Psoriatic arthritis L40.50 and Restless leg syndrome G25.81 IMMUNIZATIONS No Known Immunizations SOCIAL HISTORY Never Assessed REASON FOR VISIT PLAN OF CARE VITAL SIGNS MEDICATIONS Unknown [...] History Fall resulting in fluid/blood consolidation around lung.([place]) 02/2015 Hospitalization History Bacterial pneumonia and sepsis 01/2017 Hospitalization History Surgery Hospitalization History hospitalized for respiratory acidosis 05/2017
--- OUTSIDE RECORDS SUMMARY | 2018-08-05 00:48 | XMS REPORT ---
Author Author LAUREN BAIRD Organization [facility] Address [address] [place] [address] Care Team Providers Care Yard Specialist Name Role Phone LAUREN BAIRD Unavailable PROBLEMS Type Condition ICD9-CM Code RXA08-LA Code Onset Dates Condition Status SNOMED Code Problem Restless leg syndrome G25.81 Active 78894935 Problem Gout M10.9 Active 13591848 Problem Acute right-sided low back pain with right-sided sciatica M54.41 Active 802602995 Problem Panlobular emphysema J43.1 Active 2976626 Problem Degenerative disc disease, cervical M50.30 Active 01556319 Problem Psoriatic arthritis L40.50 Active 067574198 Problem Neuropathy G62.9 Active 568040300 Problem Arthritis M19.90 Active 4245511 ALLERGIES No Information ENCOUNTERS Encounter Location Date Diagnosis [place] [id number] [place] [address] 80512- 0981 May, Degenerative disc disease, cervical M50.30 [place] [id number] [place] [address] 81769- 0536 May, [place] [id number] [place] [address] 54445- 3819 May, [place] [id number] [place] [address] 69215- 7196 May, Panlobular emphysema J43.1 ; Arthritis M19.90 ; Tobacco abuse Z72.0 and Tobacco abuse counseling Z71.6 [place] [id number] [place] [address] 75718- 4894 May, [place] [id number] [place] [address] 49015- 4382 May, Acute right-sided low back pain with right-sided sciatica M54.41 [facility] [id number] [place] [address] 68634 -9552 30 Apr, 2017 Thrush, oral B37.0 [facility] [address] 50148 -4124 19 Apr, 2017 Cough R05 and Bronchitis J40 [place] [address] 55577- 8042 11 Apr, 2017 Acute right-sided low back pain with right-sided sciatica M54.41 [facility] [address] 89055- 8093 05 Apr, 2017 Psoriatic arthritis L40.50 and Arthritis M19.90 [place] [address] 67730- 6177 Mar, Neuropathy G62.9 and Psoriatic arthritis L40.50 [place] [address] 78254- 3953 Mar, Neuropathy G62.9 [place] [address] 47452- 4882 Mar, [place] [address] 35870- 3311 Mar, [facility] [id number] [place] [address] 77906- 9348 Mar, [facility] [id number] [place] [address] 69405 -8288 Feb, Acute cystitis with hematuria N30.01 and Dysuria R30.0 [place] [address] 00085- 7939 Feb, Neuropathy G62.9 and Arthritis M19.90 [facility] [address] 09108- 0870 Jun, Restless leg syndrome G25.81 ; Gout M10.9 and Degenerative disc disease, cervical M50.30 [facility] [address] [facility] [id number] [place] [address]- 8949 Jun, [facility] [address] [facility] [id number] [place] [address]- 1172 Jun, Psoriatic arthritis L40.50 and Restless leg syndrome G25.81 IMMUNIZATIONS No Known Immunizations SOCIAL HISTORY Never Assessed REASON FOR VISIT Controlled med refill PLAN OF CARE VITAL SIGNS MEDICATIONS Medication Instructions Dosage Frequency Start Date End Date Duration Status Tylenol with Codeine #3 300-30 MG Orally every 6 hrs 1 tablet as needed 6h May, Active RESULTS No Results PROCEDURES No Known [...] History Fall resulting in fluid/blood consolidation around lung.([place]) 02/2015 Hospitalization History Bacterial pneumonia and sepsis 01/2017 Hospitalization History Surgery Hospitalization History hospitalized for respiratory acidosis 05/2017
--- OUTSIDE RECORDS SUMMARY | 2018-08-05 00:49 | XMS REPORT ---
Author Author LAUREN BAIRD Organization [facility] Address [address] [place] [address] Care Team Providers Care Training Consultant Name Role Phone LAUREN BAIRD Unavailable PROBLEMS Type Condition ICD9-CM Code [id number] Code Onset Dates Condition Status SNOMED Code Problem Restless leg syndrome G25.81 Active 96542219 Problem Gout M10.9 Active 80013534 Problem Acute right-sided low back pain with right-sided sciatica M54.41 Active 164488116 Problem Panlobular emphysema J43.1 Active 9202502 Problem Degenerative disc disease, cervical M50.30 Active 18441866 Problem Psoriatic arthritis L40.50 Active 131486992 Problem Neuropathy G62.9 Active 783079785 Problem Arthritis M19.90 Active 0575364 ALLERGIES No Known Allergies ENCOUNTERS Encounter Location Date Diagnosis [place] [id number] [place] [address] May, Degenerative disc disease, cervical M50.30 [place] [id number] [place] [address]02- 7970 May, [place] [id number] [place] [address]10- 2601 May, [place] [id number] [place] [address]81- 5613 May, Panlobular emphysema J43.1 ; Arthritis M19.90 ; Tobacco abuse Z72.0 and Tobacco abuse counseling Z71.6 [place] [id number] [place] [address]- 3554 May, [place] [id number] [place] [address]13- 9954 May, Acute right-sided low back pain with right-sided sciatica M54.41 [facility] [id number] [place] [address]8340 -8992 30 Apr, 2017 Thrush, oral B37.0 [facility] [id number] [place] [address]54 [address]151 19 Apr, 2017 Cough R05 and Bronchitis J40 [facility] [address] [address]- [address] 11 Apr, 2017 Acute right-sided low back pain with right-sided sciatica M54.41 [facility] [address] [address]- [address] 05 Apr, 2017 Psoriatic arthritis L40.50 and Arthritis M19.90 [place] [address] [address]- [address]00 Mar, Neuropathy G62.9 and Psoriatic arthritis L40.50 [place] [address] [address]- 4764 Mar, Neuropathy G62.9 [place] [address] 258[address]- [address]497 Mar, [place] [address] [address]- [address] Mar, [facility] [id number] [place] [address] 21146- [address] Mar, [facility] [id number] [place] [address]9169 Feb, Acute cystitis with hematuria N30.01 and Dysuria R30.0 [place] [address] [address]- [address] Feb, Neuropathy G62.9 and Arthritis M19.90 [facility] [id number] [place] [address] 16583- 0806 Jun, Restless leg syndrome G25.81 ; Gout M10.9 and Degenerative disc disease, cervical M50.30 [facility] [address] [facility] [id number] [place] [address] Jun, [facility] [address] [facility] [id number] [address] 02 Jun, 2015 Psoriatic arthritis L40.50 and Restless leg syndrome G25.81 IMMUNIZATIONS Vaccine Route Administration Date Status TORADOL (IM) 60 MG/2ML (UP TO 15 MG) IM Intramuscular Apr 24, 2017 Administered SOCIAL HISTORY Never Assessed REASON FOR VISIT Pain (acute) , reports getting worse right hip and leg and creeping up back since last week, increased pain this weekend. , Thinks the celebrex is causing stomach aches. CBrumbackRN PLAN OF CARE VITAL SIGNS Height 62 in 2017-04-24 Weight 136.5 lbs 2017-04-24 Temperature 98.1 degrees Fahrenheit 2017-04-24 Heart Rate 100 bpm 2017-04-24 Respiratory Rate 20 2017-04-24 BMI 24.96 kg/m2 2017-04-24 Blood pressure systolic 136 mmHg 2017-04-24 Blood pressure diastolic 84 mmHg 2017-04-24 MEDICATIONS Medication Instructions Dosage Frequency Start Date End Date Duration Status Gabapentin 800 MG Orally Three times a day 1 tablet 8h 16 Jun, 2015 Active Qmjsvui-Nxmisi-St Chondr-MSM [phone] MG Orally Three times a day 1 tablet 8h Active Atorvastatin Calcium 20 mg Orally Once a day 1 tablet 24h Active Melatonin 3 MG Orally at bedtime 1 tablet at bedtime as needed with food Active [place] 10-325 MG Orally every 6 hrs 1 tablet as needed 6h Apr, Active Methocarbamol 500 MG Orally every 6 hours as needed 1-2 tablets Active RESULTS No Results PROCEDURES Procedure Date Ordered Result Body Site TORADOL (IM) 60 MG/2ML (UP TO 15 MG) Apr 24, 2017 THER/PROPH/DIAG INJ, SC/IM Apr 24, 2017 INSTRUCTIONS MEDICATIONS ADMINISTERED No Known Medications [...]
--- OUTSIDE RECORDS SUMMARY | 2018-08-05 00:49 | XMS REPORT ---
Author Author LAUREN BAIRD Organization [facility] Address [address] [place] [address] Care Team Providers Care Machine Boss Name Role Phone LAUREN BAIRD Unavailable PROBLEMS Type Condition ICD9-CM Code [id number] Code Onset Dates Condition Status SNOMED Code Problem Restless leg syndrome G25.81 Active 34452680 Problem Gout M10.9 Active 57734143 Problem Acute right-sided low back pain with right-sided sciatica M54.41 Active 263510975 Problem Panlobular emphysema J43.1 Active 4312879 Problem Degenerative disc disease, cervical M50.30 Active 96547594 Problem Psoriatic arthritis L40.50 Active 455566043 Problem Neuropathy G62.9 Active 286839881 Problem Arthritis M19.90 Active 0585332 ALLERGIES No Information ENCOUNTERS Encounter Location Date Diagnosis [place] [id number] [place] [address]6817- [address] May, Degenerative disc disease, cervical M50.30 [place] [id number] [place] [address] 97260- [address]01 May, [place] [id number] [place] [address] 47073- 7051 May, [place] [id number] [place] [address] 16542- 9112 May, Panlobular emphysema J43.1 ; Arthritis M19.90 ; Tobacco abuse Z72.0 and Tobacco abuse counseling Z71.6 [place] [id number] [place] [address] 45817- 0464 May, [place] [id number] [place] [address] 16458- 4650 May, Acute right-sided low back pain with right-sided sciatica M54.41 [facility] [id number] [place] [address] 40697 -[address] 30 Apr, 2017 Thrush, oral B37.0 [facility] [address] [address] 19 Apr, 2017 Cough R05 and Bronchitis J40 [place] [address] 7[address]- [address]80 11 Apr, 2017 Acute right-sided low back pain with right-sided sciatica M54.41 [facility] [address] [address]- [address] 05 Apr, 2017 Psoriatic arthritis L40.50 and Arthritis M19.90 [place] [address] [address]- [address] Mar, Neuropathy G62.9 and Psoriatic arthritis L40.50 [place] [address] [address]45- [address]60 Mar, Neuropathy G62.9 [place] [address] [address]447- [address] Mar, [place] [address] [address]- [address] Mar, [facility] [id number] [place] [address] 68153- 7982 Mar, [facility] [id number] [place] [address] 21741 -1478 Feb, Acute cystitis with hematuria N30.01 and Dysuria R30.0 [place] [address] 74[address]- 8672 Feb, Neuropathy G62.9 and Arthritis M19.90 [facility] [address] [address]- [address] Jun, Restless leg syndrome G25.81 ; Gout M10.9 and Degenerative disc disease, cervical M50.30 [facility] [address] [facility] [id number] [place] [address] Jun, [facility] [address] [facility] [id number] [place] [address] Jun, Psoriatic arthritis L40.50 and Restless leg syndrome G25.81 IMMUNIZATIONS No Known Immunizations SOCIAL HISTORY Never Assessed REASON FOR VISIT Requesting return call. PLAN OF CARE VITAL SIGNS MEDICATIONS Medication Instructions Dosage Frequency Start Date End Date Duration Status Methocarbamol 500 MG Orally every 6 hours as needed 1-2 tablets Active RESULTS No Results PROCEDURES No Known [...]
--- OUTSIDE RECORDS SUMMARY | 2018-08-05 00:50 | XMS REPORT | Continuity of Care Document ---
Author Author [facility] Organization [facility] Address Unknown Phone Unavailable Allergies Active Description Code Type Severity Reaction Onset Reported/Identified Relationship to Patient Clinical Status Yes No Known Drug Allergies [id number] Drug Allergy Unknown N/A 05/08/2015 Medications There is no data. Problems Date Dx Coded Attending Type Code Diagnosis Diagnosed By 07/13/1335 MAULIK COLLIER MD, Ot M54.2 CERVICALGIA 07/13/1335 MAULIK COLLIER MD Ot M75.31 CALCIFIC TENDINITIS OF RIGHT SHOULDER 05/08/2015 ESTEBAN URIARTE Ot 715.90 OSTEOARTHROS NOS-UNSPEC 05/08/2015 ESTEBAN URIARTE Ot 719.45 JOINT PAIN-PELVIS 10/07/2016 DAREN ANGELES MD Ot F17.210 NICOTINE DEPENDENCE, CIGARETTES, UNCOMPL 10/07/2016 DAREN ANGELES MD Ot M54.2 CERVICALGIA 10/07/2016 DAREN ANGELES MD Ot F17.210 NICOTINE DEPENDENCE, CIGARETTES, UNCOMPL 10/07/2016 DAREN ANGELES MD Ot M54.2 CERVICALGIA 10/13/2016 ANASTASIA TEJEDA MD Ot M54.2 CERVICALGIA 11/02/2016 ANASTASIA TEJEDA MD Ot M54.2 CERVICALGIA 11/13/2016 ANASTASIA TEJEDA MD Ot M54.2 CERVICALGIA 11/13/2016 ESTEBAN URIARTE Ot F17.210 NICOTINE DEPENDENCE, CIGARETTES, UNCOMPL 11/13/2016 ESTEBAN URIARTE Ot J20.9 ACUTE BRONCHITIS, UNSPECIFIED 11/13/2016 ESTEBAN URIARTE Ot K08.9 DISORDER OF TEETH AND SUPPORTING STRUCTU 11/13/2016 ESTEBAN URIARTE Ot Z79.899 OTHER TRENCH TRIMMER FINE (CURRENT) DRUG THERAPY 11/13/2016 ESTEBAN URIARTE Ot Z98.890 OTHER SPECIFIED POSTPROCEDURAL STATES 11/13/2016 ANASTASIA TEJEDA MD Ot M54.2 CERVICALGIA 11/15/2016 ESTEBAN URIARTE Ot F17.210 NICOTINE DEPENDENCE, CIGARETTES, UNCOMPL 11/15/2016 ESTEBAN URIARTE Ot J20.9 ACUTE BRONCHITIS, UNSPECIFIED 11/15/2016 ESTEBAN URIARTE Ot K08.9 DISORDER OF TEETH AND SUPPORTING STRUCTU 11/15/2016 ESTEBAN URIARTE Ot Z79.899 OTHER JAIL (CURRENT) DRUG THERAPY 11/15/2016 ESTEBAN URIARTE Ot Z98.890 OTHER SPECIFIED POSTPROCEDURAL STATES 11/17/2016 NIKHIL RAYMOND, ANASTASIA Torres Ot M54.2 CERVICALGIA 12/12/2016 ANASTASIA TEJEDA MD Ot M54.2 CERVICALGIA 12/13/2016 ANASTASIA TEJEDA MD Ot A41.9 SEPSIS, UNSPECIFIED ORGANISM 12/13/2016 ANASTASIA TEJEDA MD Ot E78.00 PURE HYPERCHOLESTEROLEMIA, UNSPECIFIED 12/13/2016 ANASTASIA TEJEDA MD Ot F17.210 NICOTINE DEPENDENCE, CIGARETTES, UNCOMPL 12/13/2016 ANASTASIA TEJEDA MD Ot J18.9 PNEUMONIA, UNSPECIFIED ORGANISM 12/13/2016 ANASTASIA TEJEDA MD Ot A41.9 SEPSIS, UNSPECIFIED ORGANISM 12/13/2016 ANASTASIA TEJEDA MD Ot E78.00 PURE HYPERCHOLESTEROLEMIA, UNSPECIFIED 12/13/2016 ANASTASIA TEJEDA MD Ot F17.210 NICOTINE DEPENDENCE, CIGARETTES, UNCOMPL 12/13/2016 ANASTASIA TEJEDA MD Ot J18.9 PNEUMONIA, UNSPECIFIED ORGANISM 12/15/2016 ANASTASIA TEJEDA MD Ot A41.9 SEPSIS, UNSPECIFIED ORGANISM 12/15/2016 ANASTASIA TEJEDA MD Ot E78.00 PURE HYPERCHOLESTEROLEMIA, UNSPECIFIED 12/15/2016 ANASTASIA TEJEDA MD Ot F17.210 NICOTINE DEPENDENCE, CIGARETTES, UNCOMPL 12/15/2016 ANASTASIA TEJEDA MD Ot J18.9 PNEUMONIA, UNSPECIFIED ORGANISM 12/15/2016 ANASTASIA TEJEDA MD Ot A41.9 SEPSIS, UNSPECIFIED ORGANISM 12/15/2016 ANASTASIA TEJEDA MD Ot E78.00 PURE HYPERCHOLESTEROLEMIA, UNSPECIFIED 12/15/2016 ANASTASIA TEJEDA MD Ot F17.210 NICOTINE DEPENDENCE, CIGARETTES, UNCOMPL 12/15/2016 ANASTASIA TEJEDA MD Ot J18.9 PNEUMONIA, UNSPECIFIED ORGANISM 12/15/2016 ANASTASIA TEJEDA MD Ot A41.9 SEPSIS, UNSPECIFIED ORGANISM 12/15/2016 ANASTASIA TEJEDA MD Ot E78.00 PURE HYPERCHOLESTEROLEMIA, UNSPECIFIED 12/15/2016 ANASTASIA TEJEDA MD Ot F17.210 NICOTINE DEPENDENCE, CIGARETTES, UNCOMPL 12/15/2016 ANASTASIA TEJEDA MD, Ot J18.9 PNEUMONIA, UNSPECIFIED ORGANISM 12/16/2016 ANASTASIA TEJEDA MD, Ot A41.9 SEPSIS, UNSPECIFIED ORGANISM 12/16/2016 ANASTASIA TEJEDA MD Ot E78.00 PURE HYPERCHOLESTEROLEMIA, UNSPECIFIED 12/16/2016 ANASTASIA TEJEDA MD Ot F17.210 NICOTINE DEPENDENCE, CIGARETTES, UNCOMPL 12/16/2016 ANASTASIA TEJEDA MD, Ot J18.9 PNEUMONIA, UNSPECIFIED ORGANISM 01/18/2017 ANASTASIA TEJEDA MD Ot M54.2 CERVICALGIA 01/18/2017 ANASTASIA TEJEDA MD, Ot J18.9 PNEUMONIA, UNSPECIFIED ORGANISM 01/19/2017 DAREN ANGELES MD Ot F17.210 NICOTINE DEPENDENCE, CIGARETTES, UNCOMPL 01/19/2017 DAREN ANGELES MD Ot M19.90 UNSPECIFIED OSTEOARTHRITIS, UNSPECIFIED 01/19/2017 DAREN ANGELES MD Ot M25.512 PAIN IN LEFT SHOULDER 01/19/2017 DAREN ANGELES MD Ot S39.011A STRAIN OF MUSCLE, FASCIA AND TENDON OF A 01/19/2017 DAREN ANGELES MD Ot S91.332A PUNCTURE WOUND WITHOUT FOREIGN BODY, LEF 01/19/2017 DAREN ANGELES MD Ot X58.XXXA EXPOSURE TO OTHER SPECIFIED FACTORS, INI 01/19/2017 ANASTASIA TEJEDA MD Ot M54.2 CERVICALGIA 01/19/2017 ANASTASIA TEJEDA MD, Ot J18.9 PNEUMONIA, UNSPECIFIED ORGANISM 01/20/2017 DAREN ANGELES MD, Ot F17.210 NICOTINE DEPENDENCE, CIGARETTES, UNCOMPL 01/20/2017 DAREN ANGELES MD Ot M19.90 UNSPECIFIED OSTEOARTHRITIS, UNSPECIFIED 01/20/2017 DAREN ANGELES MD Ot M25.512 PAIN IN LEFT SHOULDER 01/20/2017 DAREN ANGELES MD Ot S39.011A STRAIN OF MUSCLE, FASCIA AND TENDON OF A 01/20/2017 DAREN ANGELES MD Ot S91.332A PUNCTURE WOUND WITHOUT FOREIGN BODY, LEF 01/20/2017 DAREN ANGELES MD Ot X58.XXXA EXPOSURE TO OTHER SPECIFIED FACTORS, INI 02/24/2017 ANASTASIA TEJEDA MD, Ot J18.9 PNEUMONIA, UNSPECIFIED ORGANISM 02/25/2017 DAREN ANGELES MD, Ot F17.210 NICOTINE DEPENDENCE, CIGARETTES, UNCOMPL 02/25/2017 DAREN ANGELES MD, Ot M19.90 UNSPECIFIED OSTEOARTHRITIS, UNSPECIFIED 02/25/2017 DAREN ANGELES MD, Ot M25.512 PAIN IN LEFT SHOULDER 02/25/2017 DAREN AGNELES MD Ot S39.011A STRAIN OF MUSCLE, FASCIA AND TENDON OF A 02/25/2017 DAREN ANGELES MD Ot S91.332A PUNCTURE WOUND WITHOUT FOREIGN BODY, LEF 02/25/2017 DAREN ANGELES MD Ot X58.XXXA EXPOSURE TO OTHER SPECIFIED FACTORS, INI 04/27/2017 ANASTASIA TEJEDA MD, Ot J18.9 PNEUMONIA, UNSPECIFIED ORGANISM 05/07/2017 LAUREN BAIRD Ot M48.06 SPINAL STENOSIS, LUMBAR REGION 05/19/2017 ANASTASIA TEJEDA MD Ot M54.2 CERVICALGIA 05/19/2017 ANASTASIA TEJEDA MD Ot J18.9 PNEUMONIA, UNSPECIFIED ORGANISM 05/19/2017 JENNY PEREZ MD Ot E87.2 ACIDOSIS 05/19/2017 JENNY PEREZ MD Ot F11.10 OPIOID ABUSE, UNCOMPLICATED 05/19/2017 JENNY PEREZ MD Ot J44.1 CHRONIC OBSTRUCTIVE PULMONARY DISEASE W 05/19/2017 JENNY PEREZ MD Ot L40.50 ARTHROPATHIC PSORIASIS, UNSPECIFIED 05/19/2017 JENNY PEREZ MD Ot R06.03 ACUTE RESPIRATORY DISTRESS 05/24/2017 LAUREN BAIRD RADIATOR MECHANIC Ot M48.06 SPINAL STENOSIS, LUMBAR REGION 06/02/2017 LAUREN BAIRD RADIATOR MECHANIC Ot M48.06 SPINAL STENOSIS, LUMBAR REGION 06/15/2017 PERLA GOLDEN [employer] CONTRACT ANALYST Ot F17.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, UNSPECIFIED, UNCOMP 06/15/2017 PERLA GOLDEN [employer] CONTRACT ANALYST Ot J18.9 PNEUMONIA, UNSPECIFIED ORGANISM 06/15/2017 PERLA GOLDEN [employer] CONTRACT ANALYST Ot R06.00 DYSPNEA, UNSPECIFIED 06/23/2017 TIA ROLON GROUP CONTRACT ANALYST Ot Z12.31 ENCNTR SCREEN MAMMOGRAM FOR MALIGNANT NE 07/10/2017 TIA ROLON [employer] CONTRACT ANALYST Ot Z12.31 ENCNTR SCREEN MAMMOGRAM FOR MALIGNANT NE 07/19/2017 NIKHIL RAYMOND, ANASTASIA Torres Ot J18.9 PNEUMONIA, UNSPECIFIED ORGANISM 07/19/2017 LAUREN BAIRD RADIATOR MECHANIC Ot M48.06 SPINAL STENOSIS, LUMBAR REGION 07/19/2017 LAUREN BAIRD RADIATOR MECHANIC Ot M48.06 SPINAL STENOSIS, LUMBAR REGION 07/25/2017 PERLA GOLDEN [employer] CONTRACT ANALYST Ot F17.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, UNSPECIFIED, UNCOMP 07/25/2017 PERLA GOLDEN [employer] CONTRACT ANALYST Ot J18.9 PNEUMONIA, UNSPECIFIED ORGANISM 07/25/2017 PERLA GOLDEN [employer] CONTRACT ANALYST Ot J44.9 CHRONIC OBSTRUCTIVE PULMONARY DISEASE, U 07/25/2017 PERLA GOLDEN [employer] CONTRACT ANALYST Ot R06.00 DYSPNEA, UNSPECIFIED 08/31/2017 PERLA GOLDEN [employer] CONTRACT ANALYST Ot F17.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, UNSPECIFIED, UNCOMP 08/31/2017 PERLA GOLDEN [employer] CONTRACT ANALYST Ot J18.9 PNEUMONIA, UNSPECIFIED ORGANISM 08/31/2017 PERLA GOLDEN [employer] CONTRACT ANALYST Ot J44.9 CHRONIC OBSTRUCTIVE PULMONARY DISEASE, U 08/31/2017 PERLA GOLDEN [employer] CONTRACT ANALYST Ot R06.00 DYSPNEA, UNSPECIFIED 09/06/2017 LAUREN BAIRD RADIATOR MECHANIC Ot M48.06 SPINAL STENOSIS, LUMBAR REGION 10/19/2017 TIA ROLON GROUP CONTRACT ANALYST Ot M47.812 SPONDYLOSIS W/O MYELOPATHY OR RADICULOPA 10/22/2017 PERLA GOLDEN [employer] CONTRACT ANALYST Ot F17.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, UNSPECIFIED, UNCOMP 10/22/2017 PERLA GOLDEN [employer] CONTRACT ANALYST Ot J18.9 PNEUMONIA, UNSPECIFIED ORGANISM 10/22/2017 PERLA GOLDEN [employer] CONTRACT ANALYST Ot J44.9 CHRONIC OBSTRUCTIVE PULMONARY DISEASE, U 10/22/2017 PERLA GOLDEN [employer] CONTRACT ANALYST Ot R06.00 DYSPNEA, UNSPECIFIED 10/27/2017 NIKHIL RAYMOND, ANASTASIA Torres Ot M54.2 CERVICALGIA 10/27/2017 NIKHIL RAYMOND, ANASTASIA Torres Ot J18.9 PNEUMONIA, UNSPECIFIED ORGANISM 10/27/2017 TIA ROLON GROUP CONTRACT ANALYST Ot M47.812 SPONDYLOSIS W/O MYELOPATHY OR RADICULOPA 10/27/2017 PERLA GOLDEN [employer] CONTRACT ANALYST Ot F17.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, UNSPECIFIED, UNCOMP 10/27/2017 PERLA GOLDEN [employer] CONTRACT ANALYST Ot J18.9 PNEUMONIA, UNSPECIFIED ORGANISM 10/27/2017 PERLA GOLDEN [employer] CONTRACT ANALYST Ot J44.9 CHRONIC OBSTRUCTIVE PULMONARY DISEASE, U 10/27/2017 PERLA GOLDEN [employer] CONTRACT ANALYST Ot R06.00 DYSPNEA, UNSPECIFIED 11/01/2017 TIA ROLON APRN Ot M47.812 SPONDYLOSIS W/O MYELOPATHY OR RADICULOPA 11/24/2017 AMIRA RAYMOND, MAULIK Nguyễn Ot M54.2 CERVICALGIA 11/24/2017 AMIRA RAYMOND, MAULIK Nguyễn Ot M75.31 CALCIFIC TENDINITIS OF RIGHT SHOULDER 12/07/2017 ALEE BRIGHT DO Ot M75.111 INCOMPLETE ROTATR-CUFF TEAR/RUPTR OF R S 12/07/2017 ALEE BRIGHT DO Ot M75.51 BURSITIS OF RIGHT SHOULDER 12/07/2017 ALEE BRIGHT DO Ot M75.91 SHOULDER LESION, UNSPECIFIED, RIGHT SHOU 12/07/2017 ALEE BRIGHT DO Ot M75.111 INCOMPLETE ROTATR-CUFF TEAR/RUPTR OF R S 12/07/2017 ALEE BRIGHT DO Ot M75.51 BURSITIS OF RIGHT SHOULDER 12/20/2017 ALEE BRIGHT DO Ot M75.111 INCOMPLETE ROTATR-CUFF TEAR/RUPTR OF R S 12/20/2017 ALEE BRIGHT DO Ot M75.51 BURSITIS OF RIGHT SHOULDER 12/28/2017 NIKHIL RAYMOND, ANASTASIA Torres Ot M54.2 CERVICALGIA 12/28/2017 ANASTASIA TEJEDA MD Ot J18.9 PNEUMONIA, UNSPECIFIED ORGANISM 12/28/2017 LAUREN BAIRD RADIATOR MECHANIC Ot M48.06 SPINAL STENOSIS, LUMBAR REGION 12/28/2017 TIA ROLON APRN Ot M47.812 SPONDYLOSIS W/O MYELOPATHY OR RADICULOPA 12/28/2017 PERLA GOLDEN APRN Ot F17.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, UNSPECIFIED, UNCOMP 12/28/2017 PERLA GOLDEN APRN Ot J18.9 PNEUMONIA, UNSPECIFIED ORGANISM 12/28/2017 PERLA GOLDEN APRN Ot J44.9 CHRONIC OBSTRUCTIVE PULMONARY DISEASE, U 12/28/2017 PRELA GOLDEN APRN Ot R06.00 DYSPNEA, UNSPECIFIED 12/28/2017 ALEE BRIGHT DO Ot M75.111 INCOMPLETE ROTATR-CUFF TEAR/RUPTR OF R S 12/28/2017 ALEE BRIGHT DO Ot M75.51 BURSITIS OF RIGHT SHOULDER 12/28/2017 ANASTASIA TEJEDA MD, Ot J18.9 PNEUMONIA, UNSPECIFIED ORGANISM 12/28/2017 LAUREN BAIRD Ot M48.06 SPINAL STENOSIS, LUMBAR REGION 12/28/2017 PERLA GOLDEN APRN Ot F17.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, UNSPECIFIED, UNCOMP 12/28/2017 PERLA GOLDEN APRN Ot J18.9 PNEUMONIA, UNSPECIFIED ORGANISM 12/28/2017 PERLA GOLDEN APRN Ot R06.00 DYSPNEA, UNSPECIFIED 12/28/2017 TIA ROLON APRN Ot Z12.31 ENCNTR SCREEN MAMMOGRAM FOR MALIGNANT NE 12/28/2017 TIA ROLON APRN Ot M47.812 SPONDYLOSIS W/O MYELOPATHY OR RADICULOPA 12/28/2017 PERLA GOLDEN APRN Ot F17.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, UNSPECIFIED, UNCOMP 12/28/2017 PERLA GOLDEN APRN Ot J18.9 PNEUMONIA, UNSPECIFIED ORGANISM 12/28/2017 PERLA GOLDEN APRN Ot J44.9 CHRONIC OBSTRUCTIVE PULMONARY DISEASE, U 12/28/2017 PERLA GOLDEN APRN Ot R06.00 DYSPNEA, UNSPECIFIED 02/16/2018 NIKHIL RAYMOND, ANASTASIA Torres Ot M54.2 CERVICALGIA 02/16/2018 ANASTASIA TEJEDA MD Ot J18.9 PNEUMONIA, UNSPECIFIED ORGANISM 02/16/2018 LAUREN BAIRD Ot M48.06 SPINAL STENOSIS, LUMBAR REGION 02/16/2018 PERLA GOLDEN APRN Ot F17.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, UNSPECIFIED, UNCOMP 02/16/2018 PERLA GOLDEN APRN Ot J18.9 PNEUMONIA, UNSPECIFIED ORGANISM 02/16/2018 PERLA GOLDEN APRN Ot R06.00 DYSPNEA, UNSPECIFIED 02/16/2018 TIA ROLON APRN Ot Z12.31 ENCNTR SCREEN MAMMOGRAM FOR MALIGNANT NE 02/16/2018 TIA ROLON APRN Ot M47.812 SPONDYLOSIS W/O MYELOPATHY OR RADICULOPA 02/16/2018 PERLA GOLDEN APRN Ot F17.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, UNSPECIFIED, UNCOMP 02/16/2018 PERLA GOLDEN APRN Ot J18.9 PNEUMONIA, UNSPECIFIED ORGANISM 02/16/2018 PERLA GOLDEN APRN Ot J44.9 CHRONIC OBSTRUCTIVE PULMONARY DISEASE, U 02/16/2018 PERLA GOLDEN APRN Ot R06.00 DYSPNEA, UNSPECIFIED 02/16/2018 ALEE BRIGHT DO Ot M75.111 INCOMPLETE ROTATR-CUFF TEAR/RUPTR OF R S 02/16/2018 ALEE BRIGHT DO Ot M75.51 BURSITIS OF RIGHT SHOULDER 06/05/2018 LAUREN BAIRD Ot M48.06 SPINAL STENOSIS, LUMBAR REGION 06/05/2018 LAUREN BAIRD Ot M48.06 SPINAL STENOSIS, LUMBAR REGION Procedures There is no data. Results Test Result Range Complete blood count (CBC) with automated white blood cell (WBC) differential - 12/12/16 18:35 Blood leukocytes automated count (number/volume) 29.4 10*3/uL 4.3-11.0 Blood erythrocytes automated count (number/volume) 4.39 10*6/uL 4.35-5.85 Venous blood hemoglobin measurement (mass/volume) 13.5 [...] Automated blood platelet mean volume measurement 9.7 [foz_us] 7.4-10.4 Automated blood neutrophils/100 leukocytes 85 % [...] NRG Blood erythrocyte morphology finding identification NORMAL NR Blood lactic acid measurement (moles/volume) - 12/12/16 18:35 Blood lactic acid measurement (moles/volume) 1.47 mmol/L 0.50-2.00 Comprehensive metabolic panel - 12/12/16 18:35 Serum or plasma sodium measurement (moles/volume) 136 mmol/L 135-145 Serum or plasma potassium measurement (moles/volume) 3.8 mmol/L 3.6-5.0 Serum or plasma chloride measurement (moles/volume) 103 mmol/L 98-107 Carbon dioxide 20 mmol/L 21-32 Serum or plasma anion gap determination (moles/volume) 13 mmol/L 5-14 Serum or plasma urea nitrogen measurement (mass/volume) 6 mg/dL 7-18 Serum or plasma creatinine measurement (mass/volume) 0.75 mg/dL 0.60-1.30 Serum or plasma urea nitrogen/creatinine mass [...] 04:25 Blood leukocytes automated count (number/volume) 28.4 10*3/uL 4.3-11.0 Blood erythrocytes automated count (number/volume) 3.72 10*6/uL 4.35-5.85 Venous blood hemoglobin measurement (mass/volume) 11.3 [...] Automated blood platelet mean volume measurement 9.6 [foz_us] 7.4-10.4 Automated blood neutrophils/100 leukocytes 90 % [...] 04:20 Blood leukocytes automated count (number/volume) 25.1 10*3/uL 4.3-11.0 Blood erythrocytes automated count (number/volume) 3.65 10*6/uL 4.35-5.85 Venous blood hemoglobin measurement (mass/volume) 11.1 [...] Automated blood platelet mean volume measurement 9.8 [foz_us] 7.4-10.4 Automated blood neutrophils/100 leukocytes 90 % [...] 08:25 Blood leukocytes automated count (number/volume) 19.2 10*3/uL 4.3-11.0 Blood erythrocytes automated count (number/volume) 3.63 10*6/uL 4.35-5.85 Venous blood hemoglobin measurement (mass/volume) 11.1 [...] Automated blood platelet mean volume measurement 9.4 [foz_us] 7.4-10.4 Automated blood neutrophils/100 leukocytes 79 % [...] blood basophil count (count/volume) 0.2 10*3/uL 0.0-0.1 Complete blood count (CBC) with automated white blood cell (WBC) differential - 05/19/17 01:39 Blood leukocytes automated count (number/volume) 19.8 10*3/uL 4.3-11.0 Blood erythrocytes automated count (number/volume) 4.30 10*6/uL 4.35-5.85 Venous blood hemoglobin measurement (mass/volume) 13.2 g/dL 11.5-16.0 Blood hematocrit (volume fraction) 39 % 35-52 Automated erythrocyte mean corpuscular volume 91 [foz_us] 80-99 Automated erythrocyte mean corpuscular hemoglobin (mass per erythrocyte) 31 pg 25-34 Automated erythrocyte mean corpuscular hemoglobin concentration measurement ( mass/volume) 34 g/dL 32-36 Automated erythrocyte distribution width ratio 12.9 % 10.0-14.5 Automated blood platelet count (count/volume) 406 10*3/uL 130-400 Automated blood platelet mean volume measurement 10.1 [foz_us] 7.4-10.4 Automated blood neutrophils/100 leukocytes 69 % 42-75 Automated blood lymphocytes/100 leukocytes 21 % 12-44 Blood monocytes/100 leukocytes 8 % 0-12 Automated blood eosinophils/100 leukocytes 2 % 0-10 Automated blood basophils/100 leukocytes 1 % 0-10 Blood neutrophils automated count (number/volume) 13.7 10*3 1.8-7.8 Blood lymphocytes automated count (number/volume) 4.2 10*3 1.0-4.0 Blood monocytes automated count (number/volume) 1.5 10*3 0.0-1.0 Automated eosinophil count 0.4 10*3/uL 0.0-0.3 Automated blood basophil count (count/volume) 0.1 10*3/uL 0.0-0.1 PT panel in platelet poor plasma by coagulation assay - 05/19/17 01:39 Prothrombin time (PT) in platelet poor plasma by coagulation assay 12.7 s 12.2-14.7 INR in platelet poor plasma or blood by coagulation assay 0.9 0.8-1.4 Activated partial thromboplastin time (aPTT) in platelet poor plasma bycoagulation assay - 05/19/17 01:39 Activated partial thromboplastin time (aPTT) in platelet poor plasma bycoagulation assay 33 s 24-35 Comprehensive metabolic panel - 05/19/17 01:39 Serum or plasma sodium measurement (moles/volume) 139 mmol/L 135-145 Serum or plasma potassium measurement (moles/volume) 3.8 mmol/L 3.6-5.0 Serum or plasma chloride measurement (moles/volume) 107 mmol/L 98-107 Carbon dioxide 19 mmol/L 21-32 Serum or plasma anion gap determination (moles/volume) 13 mmol/L 5-14 Serum or plasma urea nitrogen measurement (mass/volume) 13 mg/dL 7-18 Serum or plasma creatinine measurement (mass/volume) 0.87 mg/dL 0.60-1.30 Serum or plasma urea nitrogen/creatinine mass ratio 15 NRG Serum or plasma creatinine measurement with calculation of estimated glomerular filtration rate > NRG Serum or plasma glucose measurement (mass/volume) 127 mg/dL 70-105 Serum or plasma calcium measurement (mass/volume) 10.1 mg/dL 8.5-10.1 Serum or plasma total bilirubin measurement (mass/volume) 0.4 mg/dL 0.1-1.0 Serum or plasma alkaline phosphatase measurement (enzymatic activity/volume) 35 U/L 40-136 Serum or plasma aspartate aminotransferase measurement (enzymatic activity/ volume) 17 U/L 5-34 Serum or plasma alanine aminotransferase measurement (enzymatic activity/volume ) 14 U/L 0-55 Serum or plasma protein measurement (mass/volume) 7.9 g/dL 6.4-8.2 Serum or plasma albumin measurement (mass/volume) 4.1 g/dL 3.2-4.5 Magnesium - 05/19/17 01:39 Magnesium 1.9 mg/dL 1.8-2.4 Serum or plasma troponin i.cardiac measurement (mass/volume) - 05/19/17 01:39 Serum or plasma troponin i.cardiac measurement (mass/volume) < ng/ mL <0.30 Blood manual differential performed detection - 05/19/17 01:39 Blood monocytes/100 leukocytes 6 % NRG Manual blood segmented neutrophils/100 leukocytes 75 % NRG Blood band neutrophils/100 leukocytes 1 % NRG Manual blood lymphocytes/100 leukocytes 16 % NRG Manual eosinophils/100 leukocytes in nose 2 % NRG Blood erythrocyte morphology finding identification NORMAL NR Blood lactic acid measurement (moles/volume) - 05/19/17 01:50 Blood lactic acid measurement (moles/volume) 0.79 mmol/L 0.50-2.00 Bacterial blood culture - 05/19/17 01:50 QUANTITY OF GROWTH Isolated NR Bacterial blood culture [id number] [facility] Bacterial blood culture - 05/19/17 02:05 Bacterial blood culture NG NR Complete urinalysis with reflex to culture - 05/19/17 02:45 Urine color determination SINDHU NRG Urine clarity determination CLEAR NRG Urine pH measurement by test strip 6 5-9 Specific gravity of urine by test strip 1.020 1.016- 1.022 Urine protein assay by test strip, semi-quantitative 2+ NEGATIVE Urine glucose detection by automated test strip NEGATIVE NEGATIVE Erythrocytes detection in urine sediment by light microscopy NEGATIVE NEGATIVE Urine ketones detection by automated test strip NEGATIVE NEGATIVE Urine nitrite detection by test strip NEGATIVE NEGATIVE Urine total bilirubin detection by test strip NEGATIVE NEGATIVE Urine urobilinogen measurement by automated test strip (mass/volume) NORMAL NORMAL Urine leukocyte esterase detection by dipstick 1+ NEGATIVE Automated urine sediment erythrocyte count by microscopy (number/high power field) NONE NRG Automated urine sediment leukocyte count by microscopy (number/high power field ) RARE NRG Bacteria detection in urine sediment by light microscopy NEGATIVE NRG Squamous epithelial cells detection in urine sediment by light microscopy RARE NRG Crystals detection in urine sediment by light microscopy NONE NRG Casts detection in urine sediment by light microscopy PRESENT NRG Mucus detection in urine sediment by light microscopy NEGATIVE NRG Complete urinalysis with reflex to culture NO NRG Hyaline casts detection in urine sediment by light microscopy 0-2 NRG Urine drug screening test - 05/19/17 02:45 Urine phencyclidine detection by screening method NEGATIVE NEGATIVE Urine benzodiazepines detection by screening method NEGATIVE NEGATIVE Urine cocaine detection NEGATIVE NEGATIVE Urine amphetamines detection by screening method NEGATIVE NEGATIVE Urine methamphetamine detection by screening method NEGATIVE NEGATIVE Urine cannabinoids detection by screening method NEGATIVE NEGATIVE Urine opiates detection by screening method POSITIVE NEGATIVE Urine barbiturates detection NEGATIVE NEGATIVE Screening urine tricyclic antidepressants detection NEGATIVE NEGATIVE Urine methadone detection by screening method NEGATIVE NEGATIVE Urine oxycodone detection POSITIVE NEGATIVE Urine propoxyphene detection NEGATIVE NEGATIVE Arterial blood gas measurement - 05/19/17 03:54 Blood pCO2 55 mm[Hg] 35-45 Blood pO2 72 mm[Hg] 79-93 Arterial blood bicarbonate measurement (moles/volume) 20 mmol/L 23-27 Arterial blood base excess by calculation -6.6 mmol/L - 2.5-2.5 Arterial blood oxygen saturation measurement 93 % 94-100 * Inhaled oxygen flow rate 2L NRG Arterial blood pH measurement with patient temperature correction 7.19 7.37-7.43 Arterial blood carbon dioxide, total measurement (moles/volume) 22.0 mmol/L 21.0-31.0 Body site RIGHT RADIAL NRG Assessment of wrist artery patency prior to arterial puncture YES- POS NRG Setting of ventilation mode NO NRG Measurement of body temperature 98.2 NRG Arterial blood gas measurement - 05/19/17 05:02 Blood pCO2 49 mm[Hg] 35-45 Blood pO2 102 mm[Hg] 79-93 Arterial blood bicarbonate measurement (moles/volume) 20 mmol/L 23-27 Arterial blood base excess by calculation -6.6 mmol/L - 2.5-2.5 Arterial blood oxygen saturation measurement 98 % 94-100 * Inhaled oxygen flow rate 36% NRG Arterial blood pH measurement with patient temperature correction 7.23 7.37-7.43 Arterial blood carbon dioxide, total measurement (moles/volume) 21.5 mmol/L 21.0-31.0 Body site LEFT RADIAL NRG Assessment of wrist artery patency prior to arterial puncture YES- POS NRG Setting of ventilation mode NO NRG Measurement of body temperature 97.1 NRG Complete blood count (CBC) with automated white blood cell (WBC) differential - 05/19/17 06:29 Blood leukocytes automated count (number/volume) 21.6 10*3/uL 4.3-11.0 Blood erythrocytes automated count (number/volume) 3.88 10*6/uL 4.35-5.85 Venous blood hemoglobin measurement (mass/volume) 12.0 g/dL 11.5-16.0 Blood hematocrit (volume fraction) 36 % 35-52 Automated erythrocyte mean corpuscular volume 93 [foz_us] 80-99 Automated erythrocyte mean corpuscular hemoglobin (mass per erythrocyte) 31 pg 25-34 Automated erythrocyte mean corpuscular hemoglobin concentration measurement ( mass/volume) 33 g/dL 32-36 Automated erythrocyte distribution width ratio 13.1 % 10.0-14.5 Automated blood platelet count (count/volume) 322 10*3/uL 130-400 Automated blood platelet mean volume measurement 9.9 [foz_us] 7.4-10.4 Automated blood neutrophils/100 leukocytes 93 % 42-75 Automated blood lymphocytes/100 leukocytes 5 % 12-44 Blood monocytes/100 leukocytes 2 % 0-12 Automated blood eosinophils/100 leukocytes 0 % 0-10 Automated blood basophils/100 leukocytes 0 % 0-10 Blood neutrophils automated count (number/volume) 20.0 10*3 1.8-7.8 Blood lymphocytes automated count (number/volume) 1.2 10*3 1.0-4.0 Blood monocytes automated count (number/volume) 0.3 10*3 0.0-1.0 Automated eosinophil count 0.0 10*3/uL 0.0-0.3 Automated blood basophil count (count/volume) 0.0 10*3/uL 0.0-0.1 Whole blood basic metabolic panel - 05/19/17 06:29 Serum or plasma sodium measurement (moles/volume) 138 mmol/L 135-145 Serum or plasma potassium measurement (moles/volume) 4.2 mmol/L 3.6-5.0 Serum or plasma chloride measurement (moles/volume) 111 mmol/L 98-107 Carbon dioxide 18 mmol/L 21-32 Serum or plasma anion gap determination (moles/volume) 9 mmol/L 5-14 Serum or plasma urea nitrogen measurement (mass/volume) 12 mg/dL 7-18 Serum or plasma creatinine measurement (mass/volume) 0.73 mg/dL 0.60-1.30 Serum or plasma urea nitrogen/creatinine mass ratio 16 NRG Serum or plasma creatinine measurement with calculation of estimated glomerular filtration rate > NRG Serum or plasma glucose measurement (mass/volume) 197 mg/dL 70-105 Serum or plasma calcium measurement (mass/volume) 8.7 mg/dL 8.5-10.1 Arterial blood gas measurement - 05/19/17 08:05 Blood pCO2 52 mm[Hg] 35-45 Blood pO2 95 mm[Hg] 79-93 Arterial blood bicarbonate measurement (moles/volume) 20 mmol/L 23-27 Arterial blood base excess by calculation -6.3 mmol/L - 2.5-2.5 Arterial blood oxygen saturation measurement 97 % 94-100 * Inhaled oxygen flow rate 36% BIPAP NRG Arterial blood pH measurement with patient temperature correction 7.22 7.37-7.43 Arterial blood carbon dioxide, total measurement (moles/volume) 21.9 mmol/L 21.0-31.0 Body site LEFT BRAC NRG Assessment of wrist artery patency prior to arterial puncture YES- POS NRG Setting of ventilation mode NO NRG Measurement of body temperature 97.9 NRG Arterial blood gas measurement - 05/19/17 13:20 Blood pCO2 43 mm[Hg] 35-45 Blood pO2 115 mm[Hg] 79-93 Arterial blood bicarbonate measurement (moles/volume) 19 mmol/L 23-27 Arterial blood base excess by calculation -6.7 mmol/L - 2.5-2.5 Arterial blood oxygen saturation measurement 99 % 94-100 * Inhaled oxygen flow rate 28% NRG Arterial blood pH measurement with patient temperature correction 7.27 7.37-7.43 Arterial blood carbon dioxide, total measurement (moles/volume) 20.3 mmol/L 21.0-31.0 Body site R RAD NRG Assessment of wrist artery patency prior to arterial puncture YES- POS NRG Setting of ventilation mode NO NRG Measurement of body temperature 97.9 NRG Encounters ACCT No. Visit Date/Time Discharge Status Pt. Type Provider Facility Loc./Unit Complaint [id number] 02/07/2018 16:54:00 02/07/2018 23:59:59 CLS Preadmit TIA ROLON APRN [facility] RAD NECK PAIN [id number] 12/06/2017 07:57:00 12/06/2017 23:59:59 CLS Outpatient ALEE BRIGHT DO [facility] RAD CALCIFIC TENDONITIS RT SHOULDER [id number] 11/24/2017 12:54:00 11/24/2017 13:36:00 DIS Outpatient MAULIK COLLIER MD [facility] REHAB R SHOULDER PAIN; CALCIFIC TENDINITIS;NECK PAIN [id number] 10/23/2017 08:15:00 10/23/2017 23:59:59 CLS Preadmit PERLA GOLDEN APRN [facility] PULM COPD [id number] 07/24/2017 08:08:00 10/22/2017 00:01:00 DIS Outpatient PERLA GOLDEN APRN [facility] PUL COPD [id number] 10/18/2017 09:51:00 10/18/2017 23:59:59 CLS Outpatient TIA ROLON APRN [facility] RAD M25.511 [id number] 06/22/2017 10:28:00 06/22/2017 23:59:59 CLS Outpatient TIA ROLON APRN [facility] RAD SCREENING [id number] 06/12/2017 10:59:00 06/12/2017 23:59:59 CLS Preadmit LAUREN BAIRD [facility] RAD DEGENERATIVE DISC DISEASE [id number] 06/02/2017 13:40:00 06/02/2017 23:59:59 CLS Outpatient PERLA GOLDEN APRN [facility] RT COPD [id number] 05/19/2017 03:54:00 05/19/2017 18:50:00 DIS Inpatient JENNY PEREZ MD [facility] ICU COPD EXACERBATION,POSS PNEUMONIA,HYPOTENSION,SEPSI [id number] 05/01/2017 11:06:00 05/01/2017 23:59:59 CLS Outpatient LAUREN BAIRD [facility] RAD M54.41 [id number] 01/18/2017 23:22:00 01/19/2017 00:13:00 DIS Emergency DAREN ANGELES MD [facility] ER PUNCTURE WOUND LEFT FOOT,RT THIGH RT SHOULDER PA [id number] 01/10/2017 08:39:00 01/10/2017 23:59:59 CLS Outpatient ANASTASIA TEJEDA MD [facility] RAD PNEUMONIA RML FU [id number] 12/12/2016 19:52:00 12/16/2016 10:00:00 DIS Inpatient ANASTASIA TEJEDA MD [facility] 4TH RML PNEUMONIA, SEPSIS [id number] 11/13/2016 16:44:00 11/13/2016 18:55:00 DIS Emergency ESTEBAN URIARTE [facility] ER DENTAL PAIN [id number] 10/13/2016 11:38:00 10/13/2016 23:59:59 CLS Outpatient ANASTASIA TEJEDA MD [facility] RAD CERVICAL NECK PAIN [id number] 10/07/2016 02:22:00 10/07/2016 03:54:00 DIS Emergency DAREN ANGELES MD [facility] ER PAIN AT BASE OF SKULL DOWN NECK [id number] 05/08/2015 11:37:00 05/08/2015 13:30:00 DIS Emergency ESTEBAN URIARTE [facility] ER RIGHT HIP PAIN [id number] 08/05/2018 00:39:00 ACT Emergency LYDIA POOLE MD [facility] ER FEVER;INFECTION IN STITCH AREA [id number] 05/22/2017 10:20:00 05/22/2017 23:59:59 CLS Outpatient LAUREN BAIRD APRN [facility] [id number] 06/08/2017 16:20:41 06/08/2017 23:59:59 CLS Outpatient
[2018-08-05] MEDS ORDERED: ASPIRIN 81 MG CHEW (CHILDREN'S ASA) ONE (00:59)
--- NOTE | 2018-08-05 01:11 | ED Respiratory ---
General Chief Complaint: Fever-Adult/Adol Stated Complaint: FEVER;INFECTION IN STITCH AREA Source: patient, spouse Exam Limitations: no limitations History of Present Illness Date Seen by Provider: Aug 05, 2018 Time Seen by Provider: 00:49 Initial Comments Patient presents to ER by private conveyance with chief complaint she's had a more productive cough for the past day and a half. She just got out of the hospital in [place] after having a four-vessel CABG. She has a history of COPD and she was up there moving back home to [facility] [place] when she thought she was having a COPD exacerbation but discovered she was having a non-ST elevation VT. Prior that she had no coronary history. She was on heparin for DVT prophylaxis up until Monday afternoon, the lower day ago. She is still on Plavix and aspirin. She did not take her aspirin today because she has not had time to pick it up. They drove straight through Monday to [place]. She's having a little chest wall pain which she goes anywhere from 4-8 at its worst with movement. She's having some swelling and ecchymoses and pain along all of her vein graft sites. Right now she rates her pain as a 5 out of 10. She says that she had to receive 4 units of blood total wall she was there. She thinks she's taking the rest of her medications as prescribed. She quit smoking since her hospitalization. What concerned her is that her cough has become more productive of yellow sputum and she has had subjective fever. She's not using Tylenol or Motrin nor any aspirin today. The patient states she used breathing treatments while she was in the hospital but before that she was not on any DuoNeb her albuterol. She was sent home with an incentive spirometer and she's been using that multiple times a day. Her discharge documents did demonstrate an x-ray from 20, 3 days ago with some basilar atelectasis and left mild pleural effusion. Do not see any labs demonstrate what her hemoglobin was. Allergies and Home Medications Allergies Coded Allergies: No Known Drug Allergies (Unverified , 05/08/15) Home Medications Acetaminophen with Codeine 1 Each Tablet, 1 TAB PO Q6H PRN for PAIN-MODERATE, ( Reported) Albuterol Sulfate 6.7 Gm Hfa.aer.ad, 2 PUFF INH Q4H PRN for SHORTNESS OF BREATH, (Reported) Atorvastatin Calcium 20 Mg Tablet, 20 MG PO DAILY, (Reported) LAST FILLED #30 7-20-17 Gabapentin 800 Mg Tablet, 800 MG PO TID, (Reported) Melatonin 5 Mg Capsule, 5 MG PO HS PRN for SLEEP, (Reported) Methocarbamol 500 Mg Tablet, 500-1,000 MG PO Q6H PRN for MUSCLE SPASMS, ( Reported) Patient Home Medication List Home Medication List Reviewed: Yes Review of Systems Review of Systems Constitutional: chills; No fever, No malaise; weakness EENTM: No hearing loss, No ear pain Respiratory: cough, phlegm, short of breath; No wheezing Cardiovascular: No edema, No palpitations, No syncope Gastrointestinal: No abdominal pain, No constipation, No diarrhea, No nausea Genitourinary: No discharge, No dysuria Musculoskeletal: No back pain, No joint pain Skin: other (ecchymoses, redness, tenderness, mild) Past Maeasvl-Yosyhy-Ssmemb Hx Patient Social History Alcohol Use: Denies Use Recreational Drug Use: No Smoking Status: Current Someday Smoker Type Used: Cigarettes Recent Foreign Travel: No Contact w/Someone Who Travel: No Recent Hopitalizations: No Immunizations Up To Date Tetanus Booster (TDap): Unknown Seasonal Allergies Seasonal Allergies: No Past Medical History Surgeries: Yes (LUNG SURG, CARPAL TERA) Hysterectomy Respiratory: Yes COPD Cardiac: Yes High Cholesterol Neurological: No Female 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 Disorders: Denies [employer]GER History: Hysterectomy, Menopausal Genitourinary: No Gastrointestinal: No Musculoskeletal: Yes (SORIATIC ARTHRITIS) Degenerate Disk Disease, Arthritis Endocrine: No HEENT: No Cancer: No Psychosocial: No Integumentary: No Blood Disorders: No Family Medical History No Pertinent Family Hx Physical Exam Vital Signs - First Documented Capillary Refill : Height: 5'2.00" Weight: 134lbs. 0.0oz. [id number]; 24.2 BMI Method:Stated General Appearance: mild distress, other (disheveled) Eyes: Bilateral Eye Normal Inspection, Bilateral Eye PERRL, Bilateral Eye EOMI HEENT: PERRL/EOMI, normal ENT inspection, pharynx normal Neck: non-tender, full range of motion, normal inspection Respiratory: lungs clear, normal breath sounds, no respiratory distress, no accessory muscle use, other (midline surgical wound with clean dry intact edges held together by cam. Ecchymoses over the chest, appropriately tender to palpation but no rubor, calor, odor or undue dolor areas of fluctuance or discharge.) Cardiovascular: normal peripheral pulses, regular rate, rhythm, no JVD, diastolic murmur Gastrointestinal: normal bowel sounds, non tender, soft Neurologic/Psychiatric: no motor/sensory deficits, alert, normal mood/affect, oriented x 3 Skin: ecchymosis, other (areas of erythema around the leg grafts and ecchymoses. Appropriately tender no areas of fluctuance, but there is some mild induration and warmth and around the left upper leg saphenous vein graft harvest site. Skin edges are clean and dry well approximated without discharge using surgical cam.) Progress/Results/Core Measures Suspected Sepsis SIRS Temperature: Pulse: Respiratory Rate: Laboratory Tests 08/05/18 01:48: White Blood Count 18.7H Blood Pressure / Mean: Laboratory Tests 08/05/18 01:48: Creatinine 0.76, INR Comment 1.0, Platelet Count 472H, Total Bilirubin 1.5H Results/Orders Lab Results Laboratory Tests Test 08/05/18 01:30 08/05/18 01:48 Range/Units Urine Color YELLOW Urine Clarity CLEAR Urine pH 6.5 5-9 Urine Specific [place] 1.010 L 1.016-1.022 Urine Protein NEGATIVE NEGATIVE Urine Glucose (UA) NEGATIVE NEGATIVE Urine Ketones NEGATIVE NEGATIVE Urine Nitrite NEGATIVE NEGATIVE Urine Bilirubin NEGATIVE NEGATIVE Urine Urobilinogen NORMAL NORMAL MG/DL Urine Leukocyte Esterase NEGATIVE NEGATIVE Urine RBC (Auto) NEGATIVE NEGATIVE Urine RBC NONE /HPF Urine WBC NONE /HPF Urine Squamous Epithelial Cells 2-5 /HPF Urine Crystals NONE /LPF Urine Bacteria TRACE /HPF Urine Casts NONE /LPF Urine Mucus NEGATIVE /LPF Urine Culture Indicated NO Urine Opiates Screen NEGATIVE NEGATIVE Urine Oxycodone Screen POSITIVE H NEGATIVE Urine Methadone Screen NEGATIVE NEGATIVE Urine Propoxyphene Screen NEGATIVE NEGATIVE Urine Barbiturates Screen NEGATIVE NEGATIVE Ur Tricyclic Antidepressants Screen NEGATIVE NEGATIVE Urine Phencyclidine Screen NEGATIVE NEGATIVE Urine Amphetamines Screen NEGATIVE NEGATIVE Urine Methamphetamines Screen NEGATIVE NEGATIVE Urine Benzodiazepines Screen NEGATIVE NEGATIVE Urine Cocaine Screen NEGATIVE NEGATIVE Urine Cannabinoids Screen NEGATIVE NEGATIVE White Blood Count 18.7 H 4.3-11.0 10^3/uL Red Blood Count 2.94 L 4.35-5.85 10^6/uL Hemoglobin 9.0 L 11.5-16.0 G/DL Hematocrit 27 L 35-52 % Mean Corpuscular Volume 93 80-99 FL Mean Corpuscular Hemoglobin 31 25-34 PG Mean Corpuscular Hemoglobin Concent 33 32-36 G/DL Red Cell Distribution Width 14.6 H 10.0-14.5 % Platelet Count 472 H 130-400 10^3/uL Mean Platelet Volume 9.5 7.4-10.4 FL Neutrophils (%) (Auto) 72 42-75 % Lymphocytes (%) (Auto) 13 12-44 % Monocytes (%) (Auto) 9 0-12 % Eosinophils (%) (Auto) 5 0-10 % Basophils (%) (Auto) 1 0-10 % Neutrophils # (Auto) 13.4 H 1.8-7.8 X 10^3 Lymphocytes # (Auto) 2.5 1.0-4.0 X 10^3 Monocytes # (Auto) 1.7 H 0.0-1.0 X 10^3 Eosinophils # (Auto) 1.0 H 0.0-0.3 10^3/uL Basophils # (Auto) 0.1 0.0-0.1 10^3/uL Neutrophils % (Manual) 77 % Lymphocytes % (Manual) 10 % Monocytes % (Manual) 3 % Eosinophils % (Manual) 4 % Basophils % (Manual) 0 % Metamyelocytes % 2 % Band Neutrophils 3 % Reactive Lymphocytes 1 % Polychromasia SLIGHT Anisocytosis SLIGHT Prothrombin Time 13.5 12.2-14.7 SEC INR Comment 1.0 0.8-1.4 Activated Partial Thromboplast Time 38 H 24-35 SEC Sodium Level 136 135-145 MMOL/L Potassium Level 4.1 3.6-5.0 MMOL/L Chloride Level 99 98-107 MMOL/L Carbon Dioxide Level 21 21-32 MMOL/L Anion Gap 16 H 5-14 MMOL/L Blood Urea Nitrogen 14 7-18 MG/DL Creatinine 0.76 0.60-1.30 MG/DL Estimat Glomerular Filtration Rate > 60 BUN/Creatinine Ratio 18 Glucose Level 130 H 70-105 MG/DL Calcium Level 9.7 8.5-10.1 MG/DL Corrected Calcium 9.3 8.5-10.1 MG/DL Total Bilirubin 1.5 H 0.1-1.0 MG/DL Aspartate Amino Transf (AST/SGOT) 31 5-34 U/L Alanine Aminotransferase (ALT/SGPT) 15 0-55 U/L Alkaline Phosphatase 21 L 40-136 U/L Myoglobin 170.4 H 10.0-92.0 NG/ML Troponin I < 0.30 <0.30 NG/ML C-Reactive Protein High Sensitivity 12.76 H 0.00-0.50 MG/DL B-Type Natriuretic Peptide 543.0 H <100.0 PG/ML Total Protein 7.0 6.4-8.2 GM/DL Albumin 4.5 3.2-4.5 GM/DL Micro Results Microbiology 08/05/18 Influenza Types A,B Antigen (MARCY) - Final, Complete My Orders Orders - LYDIA POOLE Aspirin Chewable Tablet (Baby Aspirin Ch (08/05/18 00:59) Chest Pa/Lat (2 View) (08/05/18 01:02) BNP (08/05/18 01:02) Cbc With Automated Diff (08/05/18 01:02) Comprehensive Metabolic Panel (08/05/18 01:02) Hs C Reactive Protein (08/05/18 01:02) Drug Screen Stat (Urine) (08/05/18 01:02) Protime With Inr (08/05/18 01:02) Partial Thromboplastin Time (08/05/18 01:02) Troponin I (08/05/18 01:02) Ua Culture If Indicated (08/05/18 01:02) Influenza A And B Antigens (08/05/18 01:02) Myoglobin Serum (08/05/18 01:02) Ondansetron Injection (Zofran Injectio (08/05/18 01:45) Manual Differential (08/05/18 01:48) Blood Culture (08/05/18 02:23) Lactic Acid Analyzer (08/05/18 02:23) Cefepime Injection (Maxipime Injection) (08/05/18 02:30) Medications Given in ED Current Medications Medications Dose Ordered Sig/Lance Route Start Time Stop Time Status Last Admin Dose Admin Aspirin 81 mg STK-MED ONCE .ROUTE 08/05/18 00:59 08/05/18 01:02 DC 08/05/18 00:50 81 MG Ondansetron HCl 4 mg ONCE ONCE IVP 08/05/18 01:45 08/05/18 01:46 DC 08/05/18 02:00 4 MG Vital Signs/I&O 08/05/18 08/05/18 00:48 00:48 Temp 99.1 Pulse 88 Resp 20 B/P (MAP) 139/54 (82) Pulse Ox 99 O2 Delivery Room Air Room Air Capillary Refill : Progress Note #1: Time: 01:19 Progress Note Her chest pain seems to be more around her chest wall. She's more concerned she may have popped one of the ties holding her sternum together with her coughing. She is also concerned about how her cough become productive. She is on Keflex per her discharge documents at 250 mg 4 times a day which would presumably be to protect her from skin infections. She is concerned she might have an pneumonia as are we so we will do a chest x-ray, labs. We'll get an EKG and troponin and myoglobin although we expect this still to be quite elevated after CABG. If she has a pneumonia than it probably be appropriate to do inpatient antibiotic therapy through the IV. Aseptic vital signs. Give her aspirin 325. She has declined nitroglycerin. She is using Percocet and if she wants to be happy to give her morphine for her chest wall pain. Review of previous records demonstrates the patient has a history of COPD admissions as well as polysubstance abuse. Her oxygen saturation slipped down to 88-89% on room air so he put her on 2 L by nasal cannula which improved to the mid 90s. Progress Note #2: Time: 02:27 Progress Note Elevated white count and CRP as well as infiltrates seen in the right lower lung. Productive cough. Start cefepime get some blood cultures and lactate and advise inpatient treatment given her recent CABG. Patient states she used to see Dr. Morales but is been a couple years since she seeing her so we will set her up as a local for admission. ECG Initial ECG Impression Date: Aug 05, 2018 Initial ECG Impression Time: 00:56 Initial ECG Rate: 86 Initial ECG Rhythm: Normal Sinus Initial ECG Intervals: QT (484) Initial ECG Impression: Nonspecific Changes Initial ECG Comparisson: Changed Comment Some flipped T waves in lead two, [address] elevation or depression today. Diagnostic Imaging Diagonstic Imaging: Xray Plain Films/CT/US/NM/MRI: chest (2v) Comments Right middle lobe lingual infiltrate. Interval placement of sternotomy wires since 2017 x-rays. Reviewed: Reviewed by Me Departure Communication (Admissions) Time/Spoke to Admitting Phy: 02:30 Discussed the case lab imaging findings with Dr. Ortega and he agrees to accept the patient on antibiotics and will see the patient in the morning. Impression Primary Impression: Pneumonia Qualified Codes: J18.9 - Pneumonia, unspecified organism Additional Impressions: Status post coronary artery bypass graft Acute on chronic respiratory failure with hypoxia Disposition: ADMITTED INPATIENT Condition: Stable Admissions Decision to Admit Reason: Admit from ER (General) Decision to Admit/Date: Aug 05, 2018 Time/Decision to Admit Time: 02:51 Departure-Patient Inst. Referrals: MAULIK COLLIER MD (PCP/Family) Primary Care Physician LYDIA POOLE Aug 05, 2018 01:11
[2018-08-05 01:41] LABS: BILIRUBIN,URINE NEGATIVE (NEGATIVE); CLARITY,URINE CLEAR; COLOR,URINE YELLOW; GLUCOSE, URINE (UA) NEGATIVE (NEGATIVE); KETONES,URINE NEGATIVE (NEGATIVE); LEUKOCYTE ESTERASE ,URINE NEGATIVE (NEGATIVE); NITRITE,URINE NEGATIVE (NEGATIVE); PH,URINE 6.5 (5-9); PROTEIN,URINE NEGATIVE (NEGATIVE); UROBILINOGEN,URINE NORMAL (NORMAL)
[2018-08-05] MEDS ORDERED: ONDANSETRON 4 MG/2 ML (SDV) Z0FRAN IVP ONE (01:45)
[2018-08-05 01:49] LABS: BACTERIA,URINE TRACE /HPF
[2018-08-05 01:55] LABS: AMPHETAMINE SCREEN, URINE NEGATIVE (NEGATIVE); BARBITURATE SCREEN URINE NEGATIVE (NEGATIVE); BENZODIAZEPINES SCREEN URINE NEGATIVE (NEGATIVE); CANNABINOID SCREEN, URINE NEGATIVE (NEGATIVE); COCAINE SCREEN URINE NEGATIVE (NEGATIVE); METHADONE STAT NEGATIVE (NEGATIVE); METHAMPHETAMINE SCREEN URINE S NEGATIVE (NEGATIVE); OPIATE SCREEN URINE NEGATIVE (NEGATIVE); OXYCODONE STAT POSITIVE (NEGATIVE); PROPOXYPHENE STAT NEGATIVE (NEGATIVE); TRICYCLIC ANTIDEPRESSANTS SCRE NEGATIVE (NEGATIVE)
[2018-08-05 01:57] LABS: BASOPHILS # (AUTO) 0.1 10^3/uL (0.0-0.1); BASOPHILS % (AUTO) 1 % (0-10); EOSINOPHILS % (AUTO) 5 % (0-10); HEMATOCRIT 27 % (35-52); LYMPHOCYTES # (AUTO) 2.5 X 10^3 (1.0-4.0); LYMPHOCYTES % (AUTO) 13 % (12-44); MEAN CORPUSCULAR HEMOGLOBIN 31 PG (25-34); MEAN CORPUSCULAR HGB CONC 33 G/DL (32-36); MEAN CORPUSCULAR VOLUME 93 FL (80-99); MEAN PLATELET VOLUME 9.5 FL (7.4-10.4); MONOCYTES # (AUTO) 1.7 X 10^3 (0.0-1.0); MONOCYTES % (AUTO) 9 % (0-12); NEUTROPHILS # (AUTO) 13.4 X 10^3 (1.8-7.8); NEUTROPHILS % (AUTO) 72 % (42-75); PLATELET COUNT 472 10^3/uL (130-400); RED BLOOD COUNT 2.94 10^6/uL (4.35-5.85); RED CELL DISTRIBUTION WIDTH 14.6 % (10.0-14.5); WHITE BLOOD COUNT 18.7 10^3/uL (4.3-11.0)
[2018-08-05 02:06] LABS: PROTHROMBIN TIME PATIENT 13.5 SEC (12.2-14.7)
[2018-08-05 02:09] LABS: BAND NEUTROPHILS 3 %; BASOPHILS % (MANUAL) 0 %; EOSINOPHILS % (MANUAL) 4 %; LYMPHOCYTES % (MANUAL) 10 %; MONOCYTES % (MANUAL) 3 %; NEUTROPHILS % (MANUAL) 77 %
[2018-08-05 02:10] LABS: ANISOCYTOSIS SLIGHT; METAMYELOCYTES % 2 %; POLYCHROMASIA SLIGHT; REACTIVE LYMPHOCYTES 1 %
[2018-08-05 02:20] LABS: BUN/CREATININE RATIO 18; CARBON DIOXIDE 21 MMOL/L (21-32); CHLORIDE 99 MMOL/L (98-107); CREATININE SERUM 0.76 MG/DL (0.60-1.30); POTASSIUM 4.1 MMOL/L (3.6-5.0); SODIUM 136 MMOL/L (135-145)
[2018-08-05 02:21] LABS: ALANINE AMINOTRANSFERASE 15 U/L (0-55); ALBUMIN 4.5 GM/DL (3.2-4.5); ALKALINE PHOSPHATASE 21 U/L (40-136); BILIRUBIN,TOTAL 1.5 MG/DL (0.1-1.0); CALCIUM 9.7 MG/DL (8.5-10.1); GFR ESTIMATED > 60; GLUCOSE 130 MG/DL (70-105)
[2018-08-05 02:27] LABS: MYOGLOBIN SERUM 170.4 NG/ML (10.0-92.0)
[2018-08-05] MEDS ORDERED: CEFEPIME INJECTION 2,000 MG in NS (IVPB) 50 ML IV ONE (02:30)
[2018-08-05] MEDS ORDERED: VANCOMYCIN 1500 MG/NS 500 ML IVPB IV ONE ×2 (04:30)
[2018-08-05] MEDS ORDERED: ONDANSETRON 4 MG/2 ML (SDV) Z0FRAN IV PRN (04:30)
[2018-08-05] MEDS ORDERED: ACETAMINOPHEN 500 MG TAB (TYLENOL) PO PRN (04:30)
[2018-08-05] MEDS ORDERED: CATHETER FLUSH 10 ML SYR IV PRN (04:30)
[2018-08-05] MEDS: oxyCODONE/APAP 5/325MG (PERCOCET 5) TABLET PO PRN ×3 (04:53→22:59)
[2018-08-05] MEDS: NS W/KCL 20 MEQ/L 1,000 ML IV SCH ×3 (04:54→21:43)
[2018-08-05] MEDS ORDERED: RT-ALBUTEROL/IPRATROPIUM 3 ML (DUONEB) VIAL INH PRN (05:00)
[2018-08-05] MEDS ORDERED: AZITHROMYCIN 500 MG/NS 250 ML IVPB IV ONE ×2 (05:00)
[2018-08-05] MEDS: CATHETER FLUSH 10 ML SYR IV SCH ×3 (06:00→22:00)
--- NOTE | 2018-08-05 06:36 | Diagnostic Imaging Report ---
EXAMINATION: PA and lateral chest at 1:52 AM INDICATION: Productive cough In the interval since the prior exam of 05/19/2017 the patient has undergone a cardiac surgical procedure. The heart itself is also enlarged and somewhat more prominent than on the prior exam. Furthermore, mild bibasilar atelectasis/infiltrate and small bilateral pleural effusions have developed. The upper lungs remain clear. The mediastinum is not widened. The osseous structures are intact. IMPRESSION: 1. The appearance of the chest has worsened since the prior study as mild bibasilar atelectasis/infiltrate and small bilateral pleural effusions have developed. There has also been an interval cardiac surgical procedure. 2. A followup exam would be recommended for continued evaluation. Dictated by: Dictated on workstation # [id number]
[2018-08-05] MEDS ORDERED: RT-ALBUTEROL/IPRATROPIUM 3 ML (DUONEB) VIAL ONE (06:48)
[2018-08-05] MEDS ORDERED: VANCOMYCIN 1000 MG/VIAL ONE (06:49)
[2018-08-05] MEDS ORDERED: NS IV 500 ML 500 ML ONE (06:50)
[2018-08-05] MEDS ORDERED: VANCOMYCIN 500 MG/VIAL IV ONE (06:50)
[2018-08-05] MEDS: RT-ALBUTEROL/IPRATROPIUM 3 ML (DUONEB) VIAL INH SCH ×5 (06:52→23:17)
[2018-08-05] MEDS: KETOROLAC 30 MG/ML VIAL IVP PRN ×2 (08:55→17:40)
[2018-08-05] MEDS: ASPIRIN 81 MG CHEW (CHILDREN'S ASA) PO SCH (09:00)
[2018-08-05] MEDS ORDERED: GABAPENTIN 400 MG (NEURONTIN) CAP PO NR (11:45)
[2018-08-05] MEDS ORDERED: meTOproloL SUCCINATE 50 MG (TOPROL XL) TAB PO NR (11:45)
--- NOTE | 2018-08-05 11:50 | History & Physical-Hospitalist ---
History of Present Illness HPI/Chief Complaint Mrs. Mora is a 57-year-old white female who sustained a recent reported non- ST elevation VA without heart failure. In [place] she underwent quadruple cardiac bypass surgery where she reports she received 4 units of blood for postoperative anemia. She is in the process of moving back to [place] and on her car trip down beginning yesterday she noted increased cough productive of yellowish sputum. She noted increased shortness of breath and fatigue but denied Reiger's. She reports some worsening of postoperative chest wall pain and also noted a little more redness on her upper vein graft incision on the left. She was most concerned about cellulitis. She denied any associated drainage. Likely due to her long-standing smoking she extremely poor veins and she has the most impressive vein harvest sites. They extend from the upper inner thigh all the way down to just above the ankle bilaterally with no interruption. She reported that there were no other complications with her surgery and no problems with atrial fibrillation. In our emergency room she had bibasilar infiltrates significant elevated CRP and white count of 18,000. She was admitted for treatment of pneumonia and ICU monitoring. Date Seen 08/05/18 Time Seen by a Provider: 08:00 Attending Physician Dex Ortega MD PCP Maulik Fonseca MD Referring Physician Date of Admission Aug 05, 2018 at 02:40 Home Medications & Allergies Home Medications Reviewed patient Home Medication Reconciliation performed by pharmacy medication reconciliations composite bond technician and/or nursing. Patients Allergies have been reviewed. Allergies Allergies Coded Allergies No Known Drug Allergies (Unverified05/08/15) Past Zrjfsee-Nbcwfm-Xqnnap Hx Past Med/Social Hx: Reviewed and Corrections made Patient Social History Alcohol Use: Denies Use Recreational Drug Use: No Smoking Status: Former Smoker Former Smoker, Quit: Jul 22, 2018 Type Used: Cigarettes Physical Abuse Screen: No Sexual Abuse: No Recent Foreign Travel: No Contact w/other who traveled: No Recent Hopitalizations: No Recent Infectious Disease Expo: No Immunizations Up To Date Tetanus Booster (TDap): Unknown Pediatric: Yes Date of Pneumonia Vaccine: Jul 17, 2017 Date of Influenza Vaccine: Aug 03, 2018 Seasonal Allergies Seasonal Allergies: No Past Medical History Surgeries: Cardiac, CABG, Hysterectomy Currently Using CPAP: No Currently Using BIPAP: No Cardiac: Heart Attack, High Cholesterol : No Female 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 Disorders: Denies Hysterectomy, Menopausal Musculoskeletal: Degenerate Disk Disease, Arthritis History of Blood Disorders: No Family History No Pertinent Family Hx Review of Systems Constitutional: chills, diaphoresis; No dizziness; fever; No malaise; weakness ; No weight gain, No weight loss Respiratory: cough, dyspnea on exertion, hemoptysis (Small volume just blood- streaked patient also not she's had some mild epistaxis); No orthopnea; phlegm, short of breath; No stridor, No wheezing, No other Cardiovascular: chest pain (Anterior chest wall in nature and worse with deep breaths), edema (Mild lower extremity), Hx of Intervention (Recent quadruple bypass 6 days ago); No palpitations, No syncope; vascular heart diseas; No other Physical Exam Physical Exam Vital Signs Vital Signs - First Documented 08/05/18 01:02 O2 Flow Rate 2.00 Capillary Refill : Less Than 3 Seconds Height, Weight, BMI Height: 5'2.00" Weight: 130lbs. 0.0oz. 58.640266tn; 23.8 BMI Method:Stated General Appearance: Anxious Neck: Full Range of Motion, Normal Inspection, Non Tender, Supple, Carotid Bruit Respiratory: Chest Non Tender, Lungs Clear, Normal Breath Sounds, No Accessory Muscle Use, No Respiratory Distress Cardiovascular: Regular Rate, Rhythm, No Gallop, No JVD, No Murmur, Normal Peripheral Pulses Extremity: No Calf Tenderness, Other (1+ lower extremity edema lengthy vein graft harvest scars reveal usual postop erythema and usual amount of erythema and no drainage is noted there is some mild increase in tenderness in the upper part of the incision and the inner thigh on the left leg) Neurologic/Psychiatric: Alert, Oriented x3, No Motor/Sensory Deficits Skin: Warm/Dry, Pallor (Mild) Lymphatic: No Adenopathy Results Results/Procedures Labs Laboratory Tests 08/05/18 01:48 Patient resulted labs reviewed. Imaging: Reviewed Imaging Films Imaging Date of Exam: 08/05/18 CHEST PA/LAT (2 VIEW) EXAMINATION: PA and lateral chest at 1:52 AM INDICATION: Productive cough In the interval since the prior exam of 05/19/2017 the patient has undergone a cardiac surgical procedure. The heart itself is also enlarged and somewhat more prominent than on the prior exam. Furthermore, mild bibasilar atelectasis/infiltrate and small bilateral pleural effusions have developed. The upper lungs remain clear. The mediastinum is not widened. The osseous structures are intact. IMPRESSION: 1. The appearance of the chest has worsened since the prior study as mild bibasilar atelectasis/infiltrate and small bilateral pleural effusions have developed. There has also been an interval cardiac surgical procedure. 2. A followup exam would be recommended for continued evaluation. Assessment/Plan Admission Diagnosis A/P 1. Bibasilar pneumonia meeting criteria for sepsis not severe. Patient appears to be responding to cefepime vancomycin and azithromycin . History most suggests a bacterial pneumonia will DC azithromycin. 2. Cardiovascular disease report recent VA with preserved systolic function followed by quadruple bypass surgery resume aspirin 81 mg daily. 3. 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 Discussed the fact that tobaccoism was contributing to all of her health problems including her current pneumonia. She is well aware of the negative health impact smoking is having and she states she plans to remain abstinent from smoking. It has been close to 2 weeks since her last cigarette per her report. 4. Baseline anxiety aggravated by the above. 5. Recent bypass with current pneumonia known COPD high risk for atrial fibrillation will initiate beta emily therapy metoprolol XL 50 mg daily. 6. Extensive bilateral vein graft harvest sites doubt cellulitis continue to monitor. Admission Status: Inpatient Order (span 2 midnights) Reason for Inpatient Admission: As per above Clinical Quality Measures DVT/VTE Risk/Contraindication: Risk Factor Score Per Nursin RFS Level Per Nursing on Admit: 4+=Very High Copy Copies To 1: MAULIK FONSECA MD, MARK D MD Aug 05, 2018 11:50
[2018-08-05] MEDS ORDERED: GABAPENTIN 400 MG (NEURONTIN) CAP PO SCH (14:00)
[2018-08-05] MEDS: CEFEPIME 2 GM/NS 50 ML IVPB IV SCH ×2 (17:41)
[2018-08-05] MEDS: VANCOMYCIN 1 GM/NS 250 ML IVPB IV SCH ×2 (18:48)
[2018-08-05] MEDS: GABAPENTIN 400 MG (NEURONTIN) CAP PO SCH (20:52)
[2018-08-06] VITALS: BP 160/76
[2018-08-06] MEDS: RT-ALBUTEROL/IPRATROPIUM 3 ML (DUONEB) VIAL INH SCH ×3 (02:29→10:22)
[2018-08-06] MEDS: KETOROLAC 30 MG/ML VIAL IVP PRN (02:44)
[2018-08-06 04:00] VITALS: BP 115/54
[2018-08-06] MEDS: CEFEPIME 2 GM/NS 50 ML IVPB IV SCH ×2 (06:16)
[2018-08-06] MEDS: CATHETER FLUSH 10 ML SYR IV SCH (06:18)
[2018-08-06 06:21] LABS: BASOPHILS % (AUTO) 0 % (0-10); EOSINOPHILS # (AUTO) 1.2 10^3/uL (0.0-0.3); EOSINOPHILS % (AUTO) 6 % (0-10); HEMATOCRIT 27 % (35-52); HEMOGLOBIN 8.5 G/DL (11.5-16.0); LYMPHOCYTES # (AUTO) 2.1 X 10^3 (1.0-4.0); LYMPHOCYTES % (AUTO) 12 % (12-44); MEAN CORPUSCULAR HEMOGLOBIN 31 PG (25-34); MEAN CORPUSCULAR HGB CONC 32 G/DL (32-36); MEAN CORPUSCULAR VOLUME 97 FL (80-99); MEAN PLATELET VOLUME 9.7 FL (7.4-10.4); MONOCYTES # (AUTO) 1.3 X 10^3 (0.0-1.0); MONOCYTES % (AUTO) 7 % (0-12); NEUTROPHILS # (AUTO) 13.5 X 10^3 (1.8-7.8); NEUTROPHILS % (AUTO) 75 % (42-75); PLATELET COUNT 481 10^3/uL (130-400); RED BLOOD COUNT 2.75 10^6/uL (4.35-5.85); RED CELL DISTRIBUTION WIDTH 14.9 % (10.0-14.5)
[2018-08-06 07:07] LABS: BUN/CREATININE RATIO 19; CALCIUM 8.6 MG/DL (8.5-10.1); CARBON DIOXIDE 21 MMOL/L (21-32); CHLORIDE 108 MMOL/L (98-107); CREATININE SERUM 0.68 MG/DL (0.60-1.30); GFR ESTIMATED > 60; GLUCOSE 115 MG/DL (70-105); POTASSIUM 4.6 MMOL/L (3.6-5.0); SODIUM 137 MMOL/L (135-145)
[2018-08-06] MEDS: VANCOMYCIN 1 GM/NS 250 ML IVPB IV SCH ×2 (07:09)
[2018-08-06 07:30] VITALS: BP 133/61
[2018-08-06] MEDS: ASPIRIN 81 MG CHEW (CHILDREN'S ASA) PO SCH (08:06)
[2018-08-06] MEDS: GABAPENTIN 400 MG (NEURONTIN) CAP PO SCH (08:07)
[2018-08-06] MEDS: NS W/KCL 20 MEQ/L 1,000 ML IV SCH (08:07)
[2018-08-06] MEDS: oxyCODONE/APAP 5/325MG (PERCOCET 5) TABLET PO PRN (08:10)
[2018-08-06] MEDS ORDERED: meTOproloL SUCCINATE 50 MG (TOPROL XL) TAB PO SCH (09:00)
[2018-08-06] MEDS ORDERED: AZITHROMYCIN 250 MG TAB (ZITHROMAX) PO SCH (09:00)
[2018-08-06] MEDS ORDERED: METO-370 PO (11:15)
[2018-08-06] MEDS ORDERED: ASPI-999 PO (11:15)
[2018-08-06] MEDS ORDERED: CEFD300C3 PO (11:15)
--- NOTE | 2018-08-06 11:16 | Discharge Summary-Hospitalist ---
Diagnosis/Chief Complaint Date of Admission Aug 05, 2018 at 02:40 Date of Discharge Discharge Date: Aug 06, 2018 Admission Diagnosis A/P 1. Bibasilar pneumonia meeting criteria for sepsis not severe. Patient appears to be responding to cefepime vancomycin and azithromycin . History most suggests a bacterial pneumonia will DC azithromycin. 2. Cardiovascular disease report recent [place] with preserved systolic function followed by quadruple bypass surgery resume aspirin 81 mg daily. 3. 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 Discussed the fact that tobaccoism was contributing to all of her health problems including her current pneumonia. She is well aware of the negative health impact smoking is having and she states she plans to remain abstinent from smoking. It has been close to 2 weeks since her last cigarette per her report. 4. Baseline anxiety aggravated by the above. 5. Recent bypass with current pneumonia known COPD high risk for atrial fibrillation will initiate beta emily therapy metoprolol XL 50 mg daily. 6. Extensive bilateral vein graft harvest sites doubt cellulitis continue to monitor. Discharge Diagnosis (1) Pneumonia Status: Acute (2) Acute on chronic respiratory failure with hypoxia Status: Resolved (3) Status post coronary artery bypass graft Status: Chronic (4) Elevated brain natriuretic peptide (BNP) level Status: Acute (5) Leukocytosis Status: Acute Discharge Summary Discharge Physical Exam Allergies: Coded Allergies: No Known Drug Allergies (Unverified , 05/08/15) Vitals & I&Os Vital Signs Date Time Temp Pulse Resp B/P (MAP) Pulse Ox O2 Delivery O2 Flow Rate FiO2 08/06/18 11:35 97.9 72 20 113/58 (76) 93 Room Air 08/05/18 11:45 2.00 General Appearance: No Apparent Distress, WD/WN, Chronically ill, Thin Respiratory: Chest Non Tender, Lungs Clear, Normal Breath Sounds, No Accessory Muscle Use, No Respiratory Distress Cardiovascular: Regular Rate, Rhythm, No Edema, No Gallop, No JVD, No Murmur, Normal Peripheral Pulses Neurologic/Psychiatric: Alert, Oriented x3, No Motor/Sensory Deficits, Normal Mood/Affect Hospital Course Hospital course: Patient had an uneventful hospital course she was admitted for wheezing and fever found to have pneumonia placed on empiric antibiotic treatment and considering the recent bypass graft that she underwent she was monitored closely for 3 days in the hospital. She is doing very well even though white count was still maintained at 18,000 she was without hypoxia no fever and felt well enough and look forward to going home with her family with close follow-up with establishment of medical care with a primary care provider since she has moved back from [place]. All medications were reviewed sent in to [facility] at her request. Labs (last 24 hrs) Laboratory Tests 08/06/18 05:36: White Blood Count 18.0H, Red Blood Count 2.75L, Hemoglobin 8.5L, Hematocrit 27L , Mean Corpuscular Volume 97, Mean Corpuscular Hemoglobin 31, Mean Corpuscular Hemoglobin Concent 32, Red Cell Distribution Width 14.9H, Platelet Count 481H, Mean Platelet Volume 9.7, Neutrophils (%) (Auto) 75, Lymphocytes (%) (Auto) 12, Monocytes (%) (Auto) 7, Eosinophils (%) (Auto) 6, Basophils (%) (Auto) 0, Neutrophils # (Auto) 13.5H, Lymphocytes # (Auto) 2.1, Monocytes # (Auto) 1.3H, Eosinophils # (Auto) 1.2H, Basophils # (Auto) 0.0, Sodium Level 137, Potassium Level 4.6, Chloride Level 108H, Carbon Dioxide Level 21, Anion Gap 8, Blood Urea Nitrogen 13, Creatinine 0.68, Estimat Glomerular Filtration Rate > 60, BUN/ Creatinine Ratio 19, Glucose Level 115H, Calcium Level 8.6 Microbiology 08/05/18 Blood Culture - Preliminary, Resulted No growth 08/05/18 Influenza Types A,B Antigen (MARCY) - Final, Complete Patient resulted labs reviewed. Pending Labs Laboratory Tests 08/06/18 05:36: White Blood Count 18.0, Red Blood Count 2.75, Hemoglobin 8.5, Hematocrit 27, Mean Corpuscular Volume 97, Mean Corpuscular Hemoglobin 31, Mean Corpuscular Hemoglobin Concent 32, Red Cell Distribution Width 14.9, Platelet Count 481, Mean Platelet Volume 9.7, Neutrophils (%) (Auto) 75, Lymphocytes (%) (Auto) 12, Monocytes (%) (Auto) 7, Eosinophils (%) (Auto) 6, Basophils (%) (Auto) 0, Neutrophils # (Auto) 13.5, Lymphocytes # (Auto) 2.1, Monocytes # (Auto) 1.3, Eosinophils # (Auto) 1.2, Basophils # (Auto) 0.0, Sodium Level 137, Potassium Level 4.6, Chloride Level 108, Carbon Dioxide Level 21, Anion Gap 8, Blood Urea Nitrogen 13, Creatinine 0.68, Estimat Glomerular Filtration Rate > 60, BUN/ Creatinine Ratio 19, Glucose Level 115, Calcium Level 8.6 Imaging: Reviewed Imaging Films Discussion & Recommendations Discharge Planning: <30 minutes discharge planning Discharge Home Medications: Active Scripts Active Cefdinir 300 Mg Capsule 300 Mg PO BID Aspirin 81 Mg Tab.chew 81 Mg PO DAILY Metoprolol Succinate 50 Mg Tab.er.24h 50 Mg PO DAILY Reported Proventil Hfa (Albuterol Sulfate) 6.7 Gm Hfa.aer.ad 2 Puff INH Q4H PRN Melatonin 5 Mg Capsule 5 Mg PO HS PRN Gabapentin 800 Mg Tablet 800 Mg PO TID Robaxin (Methocarbamol) 500 Mg Tablet 500-1,000 Mg PO Q6H PRN Tylenol with Codeine #3 Tablet (Acetaminophen with Codeine) 1 Each Tablet 1 Tab PO Q6H PRN Lipitor (Atorvastatin Calcium) 20 Mg Tablet 20 Mg PO DAILY LAST FILLED #30 03-02-17 Instructions to patient/family Please see electronic discharge instructions given to patient. Clinical Quality Measures DVT/VTE Risk/Contraindication: Risk Factor Score Per Nursin RFS Level Per Nursing on Admit: 4+=Very High Problem Qualifiers (1) Pneumonia: Pneumonia type: due to unspecified organism Laterality: right Lung location : unspecified part of lung Qualified Codes: J18.9 - Pneumonia, unspecified organism (2) Leukocytosis: Leukocytosis type: leukemoid reaction Qualified Codes: D72.823 - Leukemoid reaction SARABJIT EATON DO Aug 06, 2018 11:16
[2018-08-06] MEDS ORDERED: MILK OF MAGNESIA 400 MG/5 ML 30 ML UDC PO NR (11:28)
[2018-08-06 11:35] VITALS: BP 113/58
[2018-08-06 13:00] VITALS: BP 113/58
[2018-08-06] MEDS ORDERED: TROUGH ORDER-PHARMACY XX ONE (18:00)
== END 2018-08-06 13:00 | disposition home or self-care (01) | DRG 193 ==
LOC: EDUNIT# 00:37 → ER 00:39 → ICU 02:40 → 4TH 11:50
PROVIDERS: ADMIT Internal Medicine; ATTEND Internal Medicine
DX: J18.9 Pneumonia, unspecified organism (principal); J44.0 Chronic obstructive pulmonary disease with (acute) lower respiratory infection; J96.21 Acute and chronic respiratory failure with hypoxia; I21.9 Acute myocardial infarction, unspecified; I25.10 Atherosclerotic heart disease of native coronary artery without angina pectoris; E78.00 Pure hypercholesterolemia, unspecified; F41.9 Anxiety disorder, unspecified; F17.210 Nicotine dependence, cigarettes, uncomplicated; Z95.1 Presence of aortocoronary bypass graft
CPT/HCPCS: 36415; 71046; 80048; 80053; 80306; 81000; 83605; 83874; 83880; 84484; 85007; 85025; 85027; 85610; 85730; 86141; 87040; 87804; 93005; 94640; 96365; 96375

== ENCOUNTER 2018-08-07 03:00 | Inpatient (IN) | payer SELFPAY ==
[2018-08-06] MEDS: methylPREDNISolone 125 MG (Solu-MEDROL) VIAL IV SCH (05:00)
[2018-08-06] MEDS: FUROSEMIDE 40 MG/4 ML INJ (LASIX) IV SCH (05:30)
[2018-08-07] VITALS (11 sets, daily range): BP systolic 87–134; BP diastolic 44–98
[~2018-08-07] VITALS: Ht 157.5 cm; Wt 59.0 kg
[~2018-08-07 03:00] MED LIST changes: +ASPI-999 PO; +CEFD300C3 PO; +METO-370 PO
--- OUTSIDE RECORDS SUMMARY | 2018-08-07 03:13 | XMS REPORT | Continuity of Care Document ---
Author Author [facility] Organization [facility] Address Unknown Phone Unavailable Allergies Active Description Code Type Severity Reaction Onset Reported/Identified Relationship to Patient Clinical Status Yes No Known Drug Allergies [id number] Drug Allergy Unknown N/A 05/08/2015 Medications There [...] STRUCTU 11/13/2016 ESTEBAN URIARTE Ot Z79.899 OTHER COUNTER INTELLIGENCE TECHNICIAN (CURRENT) DRUG THERAPY 11/13/2016 ESTEBAN URIARTE Ot Z98.890 OTHER SPECIFIED POSTPROCEDURAL STATES 11/13/2016 ANASTASIA TEJEDA MD Ot M54.2 CERVICALGIA 11/15/2016 ESTEBAN URIARTE Ot F17.210 NICOTINE DEPENDENCE, CIGARETTES, UNCOMPL 11/15/2016 ESTEBAN URIARTE Ot J20.9 ACUTE BRONCHITIS, UNSPECIFIED 11/15/2016 ESTEBAN URIARTE Ot K08.9 DISORDER OF TEETH AND SUPPORTING STRUCTU 11/15/2016 ESTEBAN URIARTE Ot Z79.899 OTHER [facility] (CURRENT) DRUG THERAPY 11/15/2016 ESTEBAN URIARTE Ot [...] F17.210 NICOTINE DEPENDENCE, CIGARETTES, UNCOMPL 12/15/2016 ANASTASIA TEEJDA MD Ot J18.9 PNEUMONIA, UNSPECIFIED ORGANISM 12/15/2016 [...] M25.512 PAIN IN LEFT SHOULDER 02/25/2017 DAREN ANGELES MD Ot S39.011A STRAIN OF [...] R06.03 ACUTE RESPIRATORY DISTRESS 05/24/2017 LAUREN BAIRD STONEMASON SUPERVISOR Ot M48.06 SPINAL STENOSIS, LUMBAR REGION 06/02/2017 LAUREN BAIRD STONEMASON SUPERVISOR Ot M48.06 SPINAL STENOSIS, LUMBAR REGION 06/15/2017 PERLA GOLDEN SOFTWARE SALES EXECUTIVE Ot F17.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, UNSPECIFIED, UNCOMP 06/15/2017 PERLA GOLDEN SOFTWARE SALES EXECUTIVE Ot J18.9 PNEUMONIA, UNSPECIFIED ORGANISM 06/15/2017 PERLA GOLDEN SOFTWARE SALES EXECUTIVE Ot R06.00 DYSPNEA, UNSPECIFIED 06/23/2017 TIA ROLON SOFTWARE SALES EXECUTIVE Ot Z12.31 ENCNTR SCREEN MAMMOGRAM FOR MALIGNANT NE 07/10/2017 TIA ROLON SOFTWARE SALES EXECUTIVE Ot Z12.31 ENCNTR SCREEN MAMMOGRAM FOR MALIGNANT NE 07/19/2017 NIKHIL RAYMOND, ANASTASIA Torres Ot J18.9 PNEUMONIA, UNSPECIFIED ORGANISM 07/19/2017 LAUREN BAIRD STONEMASON SUPERVISOR Ot M48.06 SPINAL STENOSIS, LUMBAR REGION 07/19/2017 LAUREN BAIRD STONEMASON SUPERVISOR Ot M48.06 SPINAL STENOSIS, LUMBAR REGION 07/25/2017 PERLA GOLDEN SOFTWARE SALES EXECUTIVE Ot F17.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, UNSPECIFIED, UNCOMP 07/25/2017 PERLA GOLDEN SOFTWARE SALES EXECUTIVE Ot J18.9 PNEUMONIA, UNSPECIFIED ORGANISM 07/25/2017 PERLA GOLDEN SOFTWARE SALES EXECUTIVE Ot J44.9 CHRONIC OBSTRUCTIVE PULMONARY DISEASE, U 07/25/2017 PERLA GOLDEN SOFTWARE SALES EXECUTIVE Ot R06.00 DYSPNEA, UNSPECIFIED 08/31/2017 PERLA GOLDEN SOFTWARE SALES EXECUTIVE Ot F17.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, UNSPECIFIED, UNCOMP 08/31/2017 PERLA GOLDEN SOFTWARE SALES EXECUTIVE Ot J18.9 PNEUMONIA, UNSPECIFIED ORGANISM 08/31/2017 PERLA GOLDEN SOFTWARE SALES EXECUTIVE Ot J44.9 CHRONIC OBSTRUCTIVE PULMONARY DISEASE, U 08/31/2017 PERLA GOLDEN SOFTWARE SALES EXECUTIVE Ot R06.00 DYSPNEA, UNSPECIFIED 09/06/2017 LAUREN BAIRD STONEMASON SUPERVISOR Ot M48.06 SPINAL STENOSIS, LUMBAR REGION 10/19/2017 TIA ROLON SOFTWARE SALES EXECUTIVE Ot M47.812 SPONDYLOSIS W/O MYELOPATHY OR RADICULOPA 10/22/2017 PERLA GOLDEN SOFTWARE SALES EXECUTIVE Ot F17.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, UNSPECIFIED, UNCOMP 10/22/2017 PERLA GOLDEN SOFTWARE SALES EXECUTIVE Ot J18.9 PNEUMONIA, UNSPECIFIED ORGANISM 10/22/2017 PERLA GOLDEN SOFTWARE SALES EXECUTIVE Ot J44.9 CHRONIC OBSTRUCTIVE PULMONARY DISEASE, U 10/22/2017 PERLA GOLDEN SOFTWARE SALES EXECUTIVE Ot R06.00 DYSPNEA, UNSPECIFIED 10/27/2017 NIKHIL RAYMOND, ANASTASIA Torres Ot M54.2 CERVICALGIA 10/27/2017 NIKHIL RAYMOND, ANASTASIA Torres Ot J18.9 PNEUMONIA, UNSPECIFIED ORGANISM 10/27/2017 TIA ROLON SOFTWARE SALES EXECUTIVE Ot M47.812 SPONDYLOSIS W/O MYELOPATHY OR RADICULOPA 10/27/2017 PERLA GOLDEN SOFTWARE SALES EXECUTIVE Ot F17.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, UNSPECIFIED, UNCOMP 10/27/2017 PERLA GOLDEN SOFTWARE SALES EXECUTIVE Ot J18.9 PNEUMONIA, UNSPECIFIED ORGANISM 10/27/2017 PERLA GOLDEN SOFTWARE SALES EXECUTIVE Ot J44.9 CHRONIC OBSTRUCTIVE PULMONARY DISEASE, U 10/27/2017 PERLA GOLDEN SOFTWARE SALES EXECUTIVE Ot R06.00 DYSPNEA, UNSPECIFIED 11/01/2017 TIA ROLON [...] J18.9 PNEUMONIA, UNSPECIFIED ORGANISM 12/28/2017 LAUREN BAIRD STONEMASON SUPERVISOR Ot M48.06 SPINAL STENOSIS, LUMBAR REGION 12/28/2017 [...] OF GROWTH Isolated NR Bacterial blood culture [id number] [facility] Bacterial blood culture - 05/19/17 02:05 Bacterial [...] Status Pt. Type Provider Facility Loc./Unit Complaint [id number] 02/07/2018 16:54:00 02/07/2018 23:59:59 CLS Preadmit TIA ROLON APRN [facility] RAD NECK PAIN [id number] 12/06/2017 07:57:00 12/06/2017 23:59:59 CLS Outpatient ALEE BRIGHT DO [facility] RAD CALCIFIC TENDONITIS RT SHOULDER [id number] 11/24/2017 12:54:00 11/24/2017 13:36:00 DIS Outpatient MAULIK COLLIER MD [facility] REHAB R SHOULDER PAIN; CALCIFIC TENDINITIS;NECK PAIN [id number] 10/23/2017 08:15:00 10/23/2017 23:59:59 CLS Preadmit PERLA GOLDEN APRN [facility] PULM COPD [id number] 07/24/2017 08:08:00 10/22/2017 00:01:00 DIS Outpatient PERLA GOLDEN APRN [facility] PUL COPD [id number] 10/18/2017 09:51:00 10/18/2017 23:59:59 CLS Outpatient TIA ROLON APRN [facility] RAD M25.511 [id number] 06/22/2017 10:28:00 06/22/2017 23:59:59 CLS Outpatient TIA ROLON APRN [facility] RAD SCREENING [id number] 06/12/2017 10:59:00 06/12/2017 23:59:59 CLS Preadmit LAUREN BAIRD [facility] RAD DEGENERATIVE DISC DISEASE [id number] 06/02/2017 13:40:00 06/02/2017 23:59:59 CLS Outpatient CHICO PERLATAMIR Loco APRN [facility] RT COPD [id number] 05/19/2017 03:54:00 05/19/2017 18:50:00 DIS Inpatient JENNY PEREZ MD [facility] ICU COPD EXACERBATION,POSS PNEUMONIA,HYPOTENSION,SEPSI [id number] 05/01/2017 11:06:00 05/01/2017 23:59:59 CLS Outpatient LAUREN BAIRD [facility] RAD M54.41 [id number] 01/18/2017 23:22:00 01/19/2017 00:13:00 DIS Emergency DAREN ANGELES MD [facility] ER PUNCTURE WOUND LEFT FOOT,RT THIGH RT SHOULDER PA [id number] 01/10/2017 08:39:00 01/10/2017 23:59:59 CLS Outpatient ANASTASIA TEJEDA MD [facility] RAD PNEUMONIA RML FU [id number] 12/12/2016 19:52:00 12/16/2016 10:00:00 DIS Inpatient ANASTASIA TEJEDA MD [facility] 4TH RML PNEUMONIA, SEPSIS [id number] 11/13/2016 16:44:00 11/13/2016 18:55:00 DIS Emergency ESTEBAN URIARTE [facility] ER DENTAL PAIN [id number] 10/13/2016 11:38:00 10/13/2016 23:59:59 CLS Outpatient ANASTASIA TEJEDA MD [facility] RAD CERVICAL NECK PAIN [id number] 10/07/2016 02:22:00 10/07/2016 03:54:00 DIS Emergency DAREN ANGELES MD [facility] ER PAIN AT BASE OF SKULL DOWN NECK [id number] 05/08/2015 11:37:00 05/08/2015 13:30:00 DIS Emergency ESTEBAN URIARTE [facility] ER RIGHT HIP PAIN [id number] 08/05/2018 02:40:00 ACT Inpatient CHANDRIKA RAVI MD [facility] ICU FEVER;INFECTION IN STITCH AREA [id number] 05/22/2017 10:20:00 05/22/2017 23:59:59 CLS Outpatient LARUEN BAIRD APRN [facility] [id number] 06/08/2017 16:20:41 06/08/2017 23:59:59 CLS Outpatient
[2018-08-07 03:30] LABS: BASOPHILS # (AUTO) 0.1 10^3/uL (0.0-0.1); BASOPHILS % (AUTO) 0 % (0-10); EOSINOPHILS # (AUTO) 0.7 10^3/uL (0.0-0.3); EOSINOPHILS % (AUTO) 3 % (0-10); HEMATOCRIT 28 % (35-52); HEMOGLOBIN 9.2 G/DL (11.5-16.0); LYMPHOCYTES # (AUTO) 2.5 X 10^3 (1.0-4.0); LYMPHOCYTES % (AUTO) 11 % (12-44); MEAN CORPUSCULAR HEMOGLOBIN 32 PG (25-34); MEAN CORPUSCULAR HGB CONC 33 G/DL (32-36); MEAN CORPUSCULAR VOLUME 97 FL (80-99); MEAN PLATELET VOLUME 9.2 FL (7.4-10.4); MONOCYTES # (AUTO) 1.5 X 10^3 (0.0-1.0); MONOCYTES % (AUTO) 7 % (0-12); NEUTROPHILS % (AUTO) 78 % (42-75); PLATELET COUNT 585 10^3/uL (130-400); RED CELL DISTRIBUTION WIDTH 16.3 % (10.0-14.5); WHITE BLOOD COUNT 21.7 10^3/uL (4.3-11.0)
--- NOTE | 2018-08-07 03:44 | NUR ---
CONTACTED LAB DEPARTMENT FOR NEED OF A BLOOD CULTURE DRAW
[2018-08-07] MEDS ORDERED: methylPREDNISolone 125 MG (Solu-MEDROL) VIAL IVP ONE (03:45)
[2018-08-07] MEDS ORDERED: FUROSEMIDE 40 MG/4 ML INJ (LASIX) IVP ONE ×2 (03:45→13:30)
[2018-08-07 03:48] LABS: INR 1.1 (0.8-1.4); PROTHROMBIN TIME PATIENT 13.8 SEC (12.2-14.7)
[2018-08-07 03:56] LABS: ANISOCYTOSIS MODERATE; BAND NEUTROPHILS 4 %; EOSINOPHILS % (MANUAL) 2 %; HYPOCHROMASIA SLIGHT; LYMPHOCYTES % (MANUAL) 11 %; MONOCYTES % (MANUAL) 2 %; NEUTROPHILS % (MANUAL) 81 %; POLYCHROMASIA SLIGHT; STOMATOCYTES SLIGHT
[2018-08-07] MEDS ORDERED: CEFEPIME INJECTION 2,000 MG in NS (IVPB) 50 ML IV ONE (04:00)
[2018-08-07 04:14] LABS: ALANINE AMINOTRANSFERASE 15 U/L (0-55); ALBUMIN 4.2 GM/DL (3.2-4.5); ALKALINE PHOSPHATASE 28 U/L (40-136); BILIRUBIN,TOTAL 1.2 MG/DL (0.1-1.0); BUN/CREATININE RATIO 19; CARBON DIOXIDE 18 MMOL/L (21-32); CHLORIDE 102 MMOL/L (98-107); CREATININE SERUM 0.77 MG/DL (0.60-1.30); GFR ESTIMATED > 60; GLUCOSE 146 MG/DL (70-105); MAGNESIUM 2.9 MG/DL (1.8-2.4); POTASSIUM 4.7 MMOL/L (3.6-5.0); SODIUM 134 MMOL/L (135-145); TOTAL PROTEIN 6.8 GM/DL (6.4-8.2)
--- NOTE | 2018-08-07 04:25 | ED Respiratory ---
General Chief Complaint: Respiratory Problems Stated Complaint: SOA Nursing Triage Note: PT STATES AFTER BEING DISCHARGED FROM A MEDICAL FLOOR ARTOUND 1300 YESTERDAY, SHE BEGAN TO EXPERIENCE SOA UPON EXERTION. PT STATES SHE FELL AT HOME, LANDING ON HER POSTERIOR RIGHT SHOULDER, STATES SHE TRIPPED ON A SUITCASE. Source: patient, old records, spouse History of Present Illness Date Seen by Provider: Aug 07, 2018 Time Seen by Provider: 03:15 Initial Comments PT ARRIVES VIA POV FROM HOME PT C/O ONGOING SHORTNESS OF BREATH--GETTING WORSE, ESPECIALLY THROUGHOUT THE DAY TODAY C/O PRODUCTIVE COUGH WITH COLORED SPUTUM, AND HAS BEEN COUGHING UP BLOOD AT TIMES SINCE THIS AFTERNOON C/O FEVER--99-100 TODAY C/O INCREASE IN LEG SWELLING TODAY PT HAD ME AND THEN 4 VESSEL CABG ON 07/30/18 IN [place]-- WAS WORKING THERE, BUT ARE LIVING BACK HERE IN [place] NOW OF 08/04/18 PT WAS RELEASED 08/03/18 AND DROVE HERE ON 08/04 AND THEN CAME STRAIGHT TO ER HERE FOR SHORTNESS OF BREATH, PRODUCTIVE COUGH AND FEVER AND DX WITH PNEUMONIA PT WAS ADMITTED, AND THEN RELEASED THIS AFTERNOON 08/06/18 PT HAS GOTTEN WORSE ALL DAY PT DENIES CHEST PAIN OTHER THAN INCISIONAL PAIN PT STATES HER ABDOMEN IS SWOLLEN AND SHE HAS NOT BEEN ABLE TO URINATE OR HAVE A BM TODAY PT DOES NOT HAVE HOME O2 PT DOES HAVE INHALER AND NEBULIZER, BUT HAS NOT USED THEM TODAY PT STATES SHE DID FALL EARLIER TODAY AND INJURED RIGHT SHOULDER. PT IS ON PLAVIX AND ASPIRIN PT WAS ANEMIC AFTER CABG AND RECEIVED 4 UNITS OF BLOOD PT STATES SHE HAS NOT SMOKED SINCE SHE HAS BEEN HOSPITALIZED, BUT SMOKES HEAVILY. PCP: NONE--USED TO SEE DR. COLLIER, ALSO [facility], ALSO DR. TEJEDA, BUT HAS NOT SEEN A LOCAL DRLoren IN OVER A YEAR, SINCE MOVING TO [place] WILL BE ESTABLISHING WITH DR. 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 FENCE POST DRIVER, Allergies and Home Medications Allergies Coded Allergies: No Known Drug Allergies (Unverified , 05/08/15) Home Medications Acetaminophen with Codeine 1 Each Tablet, 1 TAB PO Q6H PRN for PAIN-MODERATE, ( Reported) Albuterol Sulfate 6.7 Gm Hfa.aer.ad, 2 PUFF INH Q4H PRN for SHORTNESS OF BREATH, (Reported) Aspirin 81 Mg Tab.chew, 81 MG PO DAILY Prescribed by: SARABJIT EATON on 08/06/18 111 Atorvastatin Calcium 20 Mg Tablet, 20 MG PO DAILY, (Reported) LAST FILLED #30 03-02-17 Cefdinir 300 Mg Capsule, 300 MG PO BID Prescribed by: SARABJIT EATON on 08/06/18 111 Gabapentin 800 Mg Tablet, 800 MG PO TID, (Reported) Melatonin 5 Mg Capsule, 5 MG PO HS PRN for SLEEP, (Reported) Methocarbamol 500 Mg Tablet, 500-1,000 MG PO Q6H PRN for MUSCLE SPASMS, ( Reported) Metoprolol Succinate 50 Mg Tab.er.24h, 50 MG PO DAILY Prescribed by: SARABJIT EATON on 08/06/18 111 Patient Home Medication List Home Medication List Reviewed: Yes Review of Systems Review of Systems Constitutional: see HPI, fever EENTM: no symptoms reported Respiratory: see HPI, cough, short of breath Cardiovascular: see HPI Gastrointestinal: see HPI, constipation Genitourinary: see HPI, decreased output Musculoskeletal: see HPI Skin: other (HAS HAD SOME REDNESS AROUND LEG INCISIONS) Psychiatric/Neurological: No Symptoms Reported Hematologic/Lymphatic: See HPI Immunological/Allergic: no symptoms reported Past Zftwtox-Awmser-Hqkpyg Hx Patient Social History Alcohol Use: Denies Use Recreational Drug Use: No Smoking Status: Current Everyday Smoker (1 PPD) Type Used: Cigarettes Former Smoker, Quit: Jul 22, 2018 Recent Foreign Travel: No Contact w/Someone Who Travel: No Recent Infectious Disease Expo: No Recent Hopitalizations: No Immunizations Up To Date Tetanus Booster (TDap): Unknown PED Vaccines UTD: Yes Date of Pneumonia Vaccine: Jul 17, 2017 Date of Influenza Vaccine: Aug 03, 2018 Seasonal Allergies Seasonal Allergies: No Past Medical History Surgeries: Yes (CARPAL TUNNEL, OPEN HEART-4 VESSEL CABG 07/30/18) Cardiac, CABG, Hysterectomy, Oophorectomy, Open Heart Surgery, Orthopedic Respiratory: Yes COPD Currently Using CPAP: No Currently Using BIPAP: No Cardiac: Yes (ME 07/2018 WITH 4 VESSEL CABG 07/30/18) Coronary Artery Disease, Heart Attack, High Cholesterol, Hypertension Neurological: No : No Female 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 Disorders: Denies 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 0.0oz. [id number]; 23.8 BMI Method:Stated General Appearance: WD/WN, no apparent distress HEENT: PERRL/EOMI, other (EDENTULOUS) Neck: normal inspection Respiratory: no respiratory distress, no accessory muscle use, rales (DIFFUSE RALES BILATERALLY) Cardiovascular: regular rate, rhythm, no murmur, other (SURGICAL WOUNDS TO CHEST HEALING WITH KWAME INTACT, MINIMAL POST SURGICAL INFLAMMATORY CHAGES AND BRUISING AROUND INCISION AND NORMAL POST OP TENDERNESS. NO SIGNS OF INFECTION. NO DRAINAGE OR BLEEDING. ) Gastrointestinal: soft, distended (MILDLY DISTENDED, BUT SOFT AND NON-TENDER) Extremities: normal range of motion, normal capillary refill, pedal edema (2+ EDEMA BILATERALLY. SURGICAL WOUNDS TO BILATERAL LEGS--CLEAN/DRY/INTACT WITH MILD , NORMAL APPEARING POST OP INFLAMMATORY CHANGES AROUND SKIN EDGES, AND MILD, APPROPRIATE TENDERNESS TO SURGICAL SITES. 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, no motor/sensory deficits, alert, normal mood/affect, oriented x 3 Skin: warm/dry, pallor Progress/Results/Core Measures Suspected Sepsis Recent Fever Within 48 Hours: No Infection Criteria Present: Suspected New Infection New/Unexplained Altered Menta: No Sepsis Screen: No Definite Risk SIRS Temperature:98.9 Pulse: 83 Respiratory Rate: 22 Laboratory Tests 08/07/18 03:20: White Blood Count 21.7H Blood Pressure / Mean: Laboratory Tests 08/07/18 03:20: Creatinine 0.77, INR Comment 1.1, Platelet Count 585H, Total Bilirubin 1.2H Results/Orders Lab Results Laboratory Tests Test 08/07/18 03:20 08/07/18 03:36 08/07/18 04:38 Range/Units White Blood Count 21.7 H 4.3-11.0 10^3/uL Red Blood Count 2.90 L 4.35-5.85 10^6/uL Hemoglobin 9.2 L 11.5-16.0 G/DL Hematocrit 28 L 35-52 % Mean Corpuscular Volume 97 80-99 FL Mean Corpuscular Hemoglobin 32 25-34 PG Mean Corpuscular Hemoglobin Concent 33 32-36 G/DL Red Cell Distribution Width 16.3 H 10.0-14.5 % Platelet Count 585 H 130-400 10^3/uL Mean Platelet Volume 9.2 7.4-10.4 FL Neutrophils (%) (Auto) 78 H 42-75 % Lymphocytes (%) (Auto) 11 L 12-44 % Monocytes (%) (Auto) 7 0-12 % Eosinophils (%) (Auto) 3 0-10 % Basophils (%) (Auto) 0 0-10 % Neutrophils # (Auto) 17.0 H 1.8-7.8 X 10^3 Lymphocytes # (Auto) 2.5 1.0-4.0 X 10^3 Monocytes # (Auto) 1.5 H 0.0-1.0 X 10^3 Eosinophils # (Auto) 0.7 H 0.0-0.3 10^3/uL Basophils # (Auto) 0.1 0.0-0.1 10^3/uL Neutrophils % (Manual) 81 % Lymphocytes % (Manual) 11 % Monocytes % (Manual) 2 % Eosinophils % (Manual) 2 % Band Neutrophils 4 % Polychromasia SLIGHT Hypochromasia SLIGHT Anisocytosis MODERATE Macrocytosis MODERATE Stomatocytes SLIGHT Prothrombin Time 13.8 12.2-14.7 SEC INR Comment 1.1 0.8-1.4 Activated Partial Thromboplast Time 38 H 24-35 SEC Sodium Level 134 L 135-145 MMOL/L Potassium Level 4.7 3.6-5.0 MMOL/L Chloride Level 102 98-107 MMOL/L Carbon Dioxide Level 18 L 21-32 MMOL/L Anion Gap 14 5-14 MMOL/L Blood Urea Nitrogen 15 7-18 MG/DL Creatinine 0.77 0.60-1.30 MG/DL Estimat Glomerular Filtration Rate > 60 BUN/Creatinine Ratio 19 Glucose Level 146 H 70-105 MG/DL Calcium Level 9.0 8.5-10.1 MG/DL Corrected Calcium 8.8 8.5-10.1 MG/DL Magnesium Level 2.9 H 1.8-2.4 MG/DL Total Bilirubin 1.2 H 0.1-1.0 MG/DL Aspartate Amino Transf (AST/SGOT) 31 5-34 U/L Alanine Aminotransferase (ALT/SGPT) 15 0-55 U/L Alkaline Phosphatase 28 L 40-136 U/L Troponin I < 0.30 <0.30 NG/ML B-Type Natriuretic Peptide 1406.6 H <100.0 PG/ML Total Protein 6.8 6.4-8.2 GM/DL Albumin 4.2 3.2-4.5 GM/DL Glucometer 168 H 70-110 MG/DL Urine Color YELLOW Urine Clarity CLEAR Urine pH 6.5 5-9 Urine Specific [place] 1.005 L 1.016-1.022 Urine Protein NEGATIVE NEGATIVE Urine Glucose (UA) NEGATIVE NEGATIVE Urine Ketones NEGATIVE NEGATIVE Urine Nitrite NEGATIVE NEGATIVE Urine Bilirubin NEGATIVE NEGATIVE Urine Urobilinogen NORMAL NORMAL MG/DL Urine Leukocyte Esterase NEGATIVE NEGATIVE Urine RBC (Auto) NEGATIVE NEGATIVE Urine RBC NONE /HPF Urine WBC NONE /HPF Urine Squamous Epithelial Cells RARE /HPF Urine Crystals NONE /LPF Urine Bacteria TRACE /HPF Urine Casts PRESENT /LPF Urine Hyaline Casts RARE /LPF Urine Mucus NEGATIVE /LPF Urine Culture Indicated NO Micro Results Microbiology 08/07/18 Influenza Types A,B Antigen (MARCY) - Final, Complete My Orders Orders - LATONIA BOUCHER DO Accucheck Stat ONCE (08/07/18 03:19) Ekg Tracing (08/07/18 03:19) O2 (08/07/18 03:19) Monitor-Rhythm Ecg Trace Only (08/07/18 03:19) BNP (08/07/18 03:19) Cbc With Automated Diff (08/07/18 03:19) Comprehensive Metabolic Panel (08/07/18 03:19) Magnesium (08/07/18 03:19) Protime With Inr (08/07/18 03:19) Partial Thromboplastin Time (08/07/18 03:19) Troponin I (08/07/18 03:19) Ua Culture If Indicated (08/07/18 03:19) Blood Culture (08/07/18 03:19) Influenza A And B Antigens (08/07/18 03:19) Chest 1 View, Ap/Pa Only (08/07/18 03:19) Manual Differential (08/07/18 03:20) Furosemide Injection (Lasix Injection) (08/07/18 03:45) Catheter(Urinary) Insert & Ass 03,15 (08/07/18 03:31) Methylprednisolone Sod Succ (Solu-Medrol (08/07/18 03:45) Cefepime Injection (Maxipime Injection) (08/07/18 04:00) Sputum Culture (08/07/18 04:18) Vital Signs/I&O 08/07/18 08/07/18 03:07 03:08 Temp 98.9 Pulse 83 Resp 22 B/P (MAP) Pulse Ox 94 96 O2 Delivery Nasal Cannula Nasal Cannula O2 Flow Rate 2.00 Capillary Refill : Less Than 3 Seconds Point of Care Testing Finger Stick Blood Glucose: 168 Progress Note : Progress Note NO DETERIORATION IN PT'S CONDITION DURING ER STAY PT DID PRODUCE A SMALL SPUTUM SAMPLE--LIGHT YELLOW WITH PINK TINGE. ECG Initial ECG Impression Date: Aug 07, 2018 Initial ECG Impression Time: 03:16 Initial ECG Rate: 78 Initial ECG Rhythm: Normal Sinus Initial ECG Impression: Nonspecific Changes Initial ECG Comparisson: Unchanged Diagnostic Imaging Comments CXR--CHF/PULMONARY EDEMA, WITH BIBASILAR INFILTRATES, WITH CARDIOMEGALY, SIGNIFICANTLY WORSENED FROM 08/05/18--PENDING RADIOLOGIST REVIEW Reviewed: Reviewed by Me Departure Communication (Admissions) 0430--SPOKE WITH DR. EATON, ACCEPTS PT FOR ADMIT TO CARDIAC STEP DOWN, WILL CONSULT CARDIOLOGY Impression Primary Impression: CHF/PULMONARY EDEMA Additional Impressions: Pneumonia S/P ME WITH CABG 07/30/18 Sepsis Anemia COPD (chronic obstructive pulmonary disease) Smoker Disposition: 09 ADMITTED INPATIENT Condition: Stable Admissions Decision to Admit Reason: Admit from ER (General) Decision to Admit/Date: Aug 07, 2018 Time/Decision to Admit Time: 04:30 Departure-Patient Inst. Referrals: MAULIK COLLIER MD (PCP/Family) Primary Care Physician LATONIA BOUCHER DO Aug 07, 2018 04:24
[2018-08-07 04:45] LABS: BILIRUBIN,URINE NEGATIVE (NEGATIVE); COLOR,URINE YELLOW; GLUCOSE, URINE (UA) NEGATIVE (NEGATIVE); KETONES,URINE NEGATIVE (NEGATIVE); LEUKOCYTE ESTERASE ,URINE NEGATIVE (NEGATIVE); NITRITE,URINE NEGATIVE (NEGATIVE); PH,URINE 6.5 (5-9); PROTEIN,URINE NEGATIVE (NEGATIVE); UROBILINOGEN,URINE NORMAL (NORMAL)
[2018-08-07 04:52] LABS: BACTERIA,URINE TRACE /HPF; CLARITY,URINE CLEAR; HYALINE CASTS, URINE RARE /LPF; SQUAMOUS EPITHELIAL CELL,UR RARE /HPF
--- NOTE | 2018-08-07 05:55 | NUR ---
ETELVINA ALONSO admitted to room CU10-1, with an admitting diagnosis of CHF/Pulmonary Edema, PNA, S/P MA, CABG, Sepsis, on 08/07/18 from ED via stretcher, accompanied by Staff.ETELVINA ALONSO introduced to surroundings, call light, bed controls, phone, TV, temperature control, lights, meal times, smoking policy, visitor policy, side rail policy, bathrooms and showers. Patient Rights given to patient in the handbook. ETELVINA ALONSO verbalizes understanding that [facility] is not responsible for the loss or damage to any personal effects or valuables that are kept in the patients possession during their hospitalization. The following Patient Care Plans were discussed with the patient: Discharge Planning, pain,activity, and medication. ETELVINA ALONSO verbalizes understanding of Interdisciplinary Patient Education. Patient and/or family were informed about the Rapid Response Team and its purpose.
[2018-08-07] MEDS ORDERED: NS (IVPB) 250 ML ONE (06:36)
[2018-08-07] MEDS ORDERED: VANCOMYCIN 1000 MG/VIAL ONE (06:36)
[2018-08-07] MEDS ORDERED: VANCOMYCIN INJECTION 1,000 MG in NS (IVPB) 250 ML IV ONE (06:45)
[2018-08-07] MEDS ORDERED: ACETAMINOPHEN 500 MG TAB (TYLENOL) PO PRN ×2 (07:00→17:00)
[2018-08-07] MEDS ORDERED: oxyCODONE/APAP 5/325MG (PERCOCET 5) TABLET ONE (07:02)
--- NOTE | 2018-08-07 07:03 | Diagnostic Imaging Report ---
Clinical indication: Patient with shortness of breath. Exam: Portable chest x-ray upright view. Comparison: Chest x-ray dated 08/05/2018. There is cardiomegaly and increased pulmonary vascular congestion. There is increased size of the now small to moderate left pleural effusion and stable small right pleural effusion. There is no pneumothorax. There is increased lung markings throughout both lungs and progression of left lung base consolidation. Postop changes to the chest with sternotomy wires and mediastinal clips are again seen. The remainder of this exam shows no significant interval change compared to the prior study of comparison. Impression: 1: Concern for interval worsening of congestive heart failure findings with cardiomegaly and increased pulmonary vascular congestion. 2: Bilateral pleural effusions (left side more than the right) which has increased on the left and stable on the right. 3: There is increased airspace opacities involving both lung bases which may represent pulmonary congestion versus lung infiltrate/ infectious process. Dictated by: Dictated on workstation # [id number]
[2018-08-07] MEDS: oxyCODONE/APAP 5/325MG (PERCOCET 5) TABLET PO PRN ×3 (07:06→20:51)
--- NOTE | 2018-08-07 07:36 | Consultation-Cardiology ---
HPI-Cardiology Cardiology Consultation Date of Consultation 08/07/18 Date of Admission Time Seen by Provider: 07:30 Indication: pneumonia, congestive heart failure HPI 57 years old lady with history of coronary artery disease, COPD. Has history of bypass surgery done on July 30, 2018. Was seen earlier this week for shortness of breath. Return to the hospital with fever, cough and shortness of breath. Having chest pain at the incisional site. Denied any palpitation. Denied any syncope, she is fairly tired, using oxygen, cannot lay down flat. Denied any syncope or near syncopal episodes. Home Medications & Allergies Allergies: Coded Allergies: No Known Drug Allergies (Unverified , 05/08/15) Home Medication List Reviewed: Yes UWK-Dsojfp-Tmwysp Hx Patient Social History Marital Status: Employed/Student: employed Alcohol Use: Denies Use Recreational Drug Use: No Smoking Status: Former Smoker Type Used: Cigarettes Recent Foreign Travel: No Recent Infectious Disease Expo: No Recent Hopitalizations: No Physical Abuse Screen: No Sexual Abuse: No Immunizations Up To Date Tetanus Booster (TDap): Unknown Date of Pneumonia Vaccine: Jul 17, 2017 Date of Influenza Vaccine: Aug 03, 2018 Past Medical History past medical history as described below Family Medical History Significant Family History: No Pertinent Family Hx Family Medical Hx noncontributory Review of Systems Constitutional: see HPI, fever, malaise, weakness EENTM: see HPI, no symptoms reported Respiratory: see HPI, cough, dyspnea on exertion; No hemoptysis; orthopnea; No phlegm; short of breath; No stridor, No wheezing, No other Cardiovascular: see HPI, chest pain, edema; No Hx of Intervention, No palpitations, No syncope, No vascular heart diseas, No other Gastrointestinal: no symptoms reported, see HPI Genitourinary: no symptoms reported, see HPI Musculoskeletal: no symptoms reported, see HPI Skin: no symptoms reported, see HPI Psychiatric/Neurological: No Symptoms Reported, See HPI Reviewed Test Results Reviewed Test Results Lab Laboratory Tests Test 08/07/18 03:20 08/07/18 03:36 08/07/18 04:38 Range/Units White Blood Count 21.7 H 4.3-11.0 10^3/uL Red Blood Count 2.90 L 4.35-5.85 10^6/uL Hemoglobin 9.2 L 11.5-16.0 G/DL Hematocrit 28 L 35-52 % Mean Corpuscular Volume 97 80-99 FL Mean Corpuscular Hemoglobin 32 25-34 PG Mean Corpuscular Hemoglobin Concent 33 32-36 G/DL Red Cell Distribution Width 16.3 H 10.0-14.5 % Platelet Count 585 H 130-400 10^3/uL Mean Platelet Volume 9.2 7.4-10.4 FL Neutrophils (%) (Auto) 78 H 42-75 % Lymphocytes (%) (Auto) 11 L 12-44 % Monocytes (%) (Auto) 7 0-12 % Eosinophils (%) (Auto) 3 0-10 % Basophils (%) (Auto) 0 0-10 % Neutrophils # (Auto) 17.0 H 1.8-7.8 X 10^3 Lymphocytes # (Auto) 2.5 1.0-4.0 X 10^3 Monocytes # (Auto) 1.5 H 0.0-1.0 X 10^3 Eosinophils # (Auto) 0.7 H 0.0-0.3 10^3/uL Basophils # (Auto) 0.1 0.0-0.1 10^3/uL Neutrophils % (Manual) 81 % Lymphocytes % (Manual) 11 % Monocytes % (Manual) 2 % Eosinophils % (Manual) 2 % Band Neutrophils 4 % Polychromasia SLIGHT Hypochromasia SLIGHT Anisocytosis MODERATE Macrocytosis MODERATE Stomatocytes SLIGHT Prothrombin Time 13.8 12.2-14.7 SEC INR Comment 1.1 0.8-1.4 Activated Partial Thromboplast Time 38 H 24-35 SEC Sodium Level 134 L 135-145 MMOL/L Potassium Level 4.7 3.6-5.0 MMOL/L Chloride Level 102 98-107 MMOL/L Carbon Dioxide Level 18 L 21-32 MMOL/L Anion Gap 14 5-14 MMOL/L Blood Urea Nitrogen 15 7-18 MG/DL Creatinine 0.77 0.60-1.30 MG/DL Estimat Glomerular Filtration Rate > 60 BUN/Creatinine Ratio 19 Glucose Level 146 H 70-105 MG/DL Calcium Level 9.0 8.5-10.1 MG/DL Corrected Calcium 8.8 8.5-10.1 MG/DL Magnesium Level 2.9 H 1.8-2.4 MG/DL Total Bilirubin 1.2 H 0.1-1.0 MG/DL Aspartate Amino Transf (AST/SGOT) 31 5-34 U/L Alanine Aminotransferase (ALT/SGPT) 15 0-55 U/L Alkaline Phosphatase 28 L 40-136 U/L Troponin I < 0.30 <0.30 NG/ML B-Type Natriuretic Peptide 1406.6 H <100.0 PG/ML Total Protein 6.8 6.4-8.2 GM/DL Albumin 4.2 3.2-4.5 GM/DL Glucometer 168 H 70-110 MG/DL Urine Color YELLOW Urine Clarity CLEAR Urine pH 6.5 5-9 Urine Specific [place] 1.005 L 1.016-1.022 Urine Protein NEGATIVE NEGATIVE Urine Glucose (UA) NEGATIVE NEGATIVE Urine Ketones NEGATIVE NEGATIVE Urine Nitrite NEGATIVE NEGATIVE Urine Bilirubin NEGATIVE NEGATIVE Urine Urobilinogen NORMAL NORMAL MG/DL Urine Leukocyte Esterase NEGATIVE NEGATIVE Urine RBC (Auto) NEGATIVE NEGATIVE Urine RBC NONE /HPF Urine WBC NONE /HPF Urine Squamous Epithelial Cells RARE /HPF Urine Crystals NONE /LPF Urine Bacteria TRACE /HPF Urine Casts PRESENT /LPF Urine Hyaline Casts RARE /LPF Urine Mucus NEGATIVE /LPF Urine Culture Indicated NO Physical Exam Vital Signs Vital Signs - First Documented 08/07/18 08/07/18 08/07/18 03:07 03:08 05:33 Temp 98.9 Pulse 83 Resp 22 B/P (MAP) 126/59 (81) Pulse Ox 94 O2 Delivery Nasal Cannula O2 Flow Rate 2.00 Capillary Refill : Less Than 3 Seconds Height, Weight, BMI Height: 5'2.00" Weight: 136lbs. 4.0oz. 61.904228lr; 24.9 BMI Method:Stated General Appearance: WD/WN, Moderate Distress Eyes: Bilateral Eye Normal Inspection, Bilateral Eye PERRL, Bilateral Eye EOMI HEENT: PERRL/EOMI, TMs Normal, Normal ENT Inspection, Pharynx Normal Neck: Full Range of Motion, Normal Inspection, Non Tender, Supple, Carotid Bruit, JVD Respiratory: No Accessory Muscle Use, No Respiratory Distress, Crackles, Decreased Breath Sounds, Expiration, Rales Cardiovascular: Regular Rate, Rhythm, Normal Peripheral Pulses, Systolic Murmur , Gallop/S3, Gallop/S4, JVD Gastrointestinal: Normal Bowel Sounds, No Organomegaly, No Pulsatile Mass, Non Tender, Soft Back: Normal Inspection, No CVA Tenderness, No Vertebral Tenderness Extremity: Normal Capillary Refill, Normal Inspection, Normal Range of Motion, Non Tender, No Calf Tenderness, Pedal Edema Neurologic/Psychiatric: Alert, Oriented x3, No Motor/Sensory Deficits, Normal Mood/Affect Skin: Normal Color, Warm/Dry Lymphatic: No Adenopathy A/P-Cardiology Admission Diagnosis Congestive heart failure Pneumonia Coronary artery disease Hypertension Assessment/Plan Congestive heart failure, acute decompensated left ventricular systolic dysfunction, probably ischemic cardiomyopathy, patient has S3/S4 on exam with wet rales, started on Lasix, continue with aggressive diuresis and monitor tolerance and response. I will evaluate 2-D echocardiogram. Coronary artery disease, status post myocardial infarction occurred early in July 2018, had CABG 4 done on July 30, 2018 in [place] and she was discharged and drove back to [place]. Troponin is negative. EKG showed diffuse T-wave inversion, probably her baseline. Continue to monitor, no changes at this time, restart aspirin Pneumonia, history of COPD, started on vancomycin, I recommend adding gram- negative coverage due to her multiple comorbid condition and recent hospitalization Chest pain, musculoskeletal from the incision, appeared to be healing well, leg wound at the site of the vein harvest also is healing well. Continue to monitor Hypertension, restart home medication with beta blockers and DONNA inhibitor and monitor tolerance and response Hyperlipidemia, restart Lipitor COPD, acute exacerbation, acute respiratory insufficiency, history of emphysema. Tobaccoism, patient has stopped smoking after her recent hospitalization and bypass surgery, encouraged to continue with smoking cessation Clinical Quality Measures DVT/VTE Risk/Contraindication: Risk Factor Score Per Nursin RFS Level Per Nursing on Admit: 4+=Very High SUPA MCMANUS MD Aug 07, 2018 07:36
--- NOTE | 2018-08-07 07:53 | NUR ---
This RN called Process Engineering Manager to notify of Echo with color flow.
[2018-08-07] MEDS ORDERED: PIPERACILLIN/TAZO 4.5 GM/NS 100 ML IV NR ×2 (08:00)
[2018-08-07] MEDS: lisINopril 5 MG (PRINIVIL) TABLET PO SCH (08:29)
[2018-08-07] MEDS: ATORVASTATIN 20 MG (LIPITOR) TABLET PO SCH (08:29)
[2018-08-07] MEDS: meTOproloL SUCCINATE 50 MG (TOPROL XL) TAB PO SCH (08:29)
[2018-08-07] MEDS: ASPIRIN 81 MG CHEW (CHILDREN'S ASA) PO SCH (08:29)
[2018-08-07] MEDS ORDERED: NON-FORMULARY MEDICATION 1 EA EA (Atorvastatin Calcium (Lipitor) 20 MG) PO SCH (09:00)
[2018-08-07] MEDS: RT-ALBUTEROL/IPRATROPIUM 3 ML (DUONEB) VIAL INH SCH ×4 (09:59→22:08)
--- NOTE | 2018-08-07 09:59 | Diagnostic Imaging Report ---
INDICATION: Shortness of breath. Comparison made with prior examination from 08/07/18. FINDINGS: There is a left basilar infiltrate and left pleural effusion. There is cardiomegaly. There is some venous congestion. There is no pneumothorax. The mediastinum is unremarkable. There has been a previous median sternotomy. IMPRESSION: Left basilar infiltrate and left pleural effusion. Cardiomegaly and some central pulmonary venous congestion. Dictated by: Dictated on workstation # [id number]
--- NOTE | 2018-08-07 10:49 | History & Physical-Hospitalist ---
History of Present Illness HPI/Chief Complaint CC: Dyspnea with wheezing HPI: This is a 57-year-old white female who was just discharged yesterday afternoon in preparation for [place] celebration and placed on adequate antibiotic coverage who presented back to the ER with worsened dyspnea and found to have florid pulmonary edema. Cardiology was consulted and patient was placed back on hospital acquired pneumonia due to recent CABG 07/28/18 and this current set back after DC on Cefdinir. Patient is improved overall and already asking when she can go home. Appreciate Dr Mckenzie's help. Source: patient, family, RN/MD Exam Limitations: no limitations Date Seen 08/07/18 Time Seen by a Provider: 11:15 Attending Physician Britni Radford Holly A MD Referring Physician Date of Admission Aug 07, 2018 at 04:39 Home Medications & Allergies Home Medications Reviewed patient Home Medication Reconciliation performed by pharmacy medication reconciliations aviation safety technician and/or nursing. Patients Allergies have been reviewed. Allergies Allergies Coded Allergies No Known Drug Allergies (Unverified05/08/15) Past Hnfruhd-Iwcnjw-Tbvphh Hx Past Med/Social Hx: Reviewed Nursing Past Med/Soc Hx, Reviewed and Corrections made Patient Social History Marrital Status: Employed/Student: employed Alcohol Use: Denies Use Recreational Drug Use: No Smoking Status: Former Smoker Former Smoker, Quit: Jul 22, 2018 Type Used: Cigarettes Physical Abuse Screen: No Sexual Abuse: No Recent Foreign Travel: No Contact w/other who traveled: No Recent Hopitalizations: No Recent Infectious Disease Expo: No Immunizations Up To Date Tetanus Booster (TDap): Unknown Pediatric: Yes Date of Pneumonia Vaccine: Jul 17, 2017 Date of Influenza Vaccine: Aug 03, 2018 Seasonal Allergies Seasonal Allergies: No Past Medical History Surgeries: Cardiac, CABG, Hysterectomy, Oophorectomy, Open Heart Surgery, Orthopedic Respiratory: Pneumonia Currently Using CPAP: No Currently Using BIPAP: No Cardiac: Coronary Artery Disease, Heart Attack, High Cholesterol, Hypertension : No Female 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 Disorders: Denies Hysterectomy, Menopausal Musculoskeletal: Degenerate Disk Disease, Arthritis, Chronic Back Pain Skin/Integumentary: Psoriasis History of Blood Disorders: Yes (POST OP ANEMIA 07/2018) Family History No Pertinent Family Hx Review of Systems Constitutional: see HPI, dizziness, weakness EENTM: no symptoms reported Respiratory: cough, dyspnea on exertion, orthopnea, phlegm, short of breath, wheezing Cardiovascular: palpitations Gastrointestinal: no symptoms reported Genitourinary: no symptoms reported Musculoskeletal: no symptoms reported Skin: no symptoms reported Psychiatric/Neurological: No Symptoms Reported All Other Systems Reviewed Negative Unless Noted: Yes Physical Exam Physical Exam Vital Signs Vital Signs - First Documented 08/07/18 08/07/18 08/07/18 03:07 03:08 05:33 Temp 98.9 Pulse 83 Resp 22 B/P (MAP) 126/59 (81) Pulse Ox 94 O2 Delivery Nasal Cannula O2 Flow Rate 2.00 Capillary Refill : Less Than 3 SecondsLess Than 3 Seconds Height, Weight, BMI Height: 5'2.00" Weight: 136lbs. 4.0oz. 61.509724ke; 24.9 BMI Method:Stated General Appearance: No Apparent Distress, WD/WN, Chronically ill, Thin Eyes: Bilateral Eye Normal Inspection, Bilateral Eye PERRL HEENT: PERRL/EOMI, Normal ENT Inspection, Pharynx Normal Neck: Full Range of Motion, Normal Inspection, Non Tender, Supple, Carotid Bruit Respiratory: Chest Non Tender, No Accessory Muscle Use, No Respiratory Distress , Crackles, Decreased Breath Sounds, Wheezing Cardiovascular: Regular Rate, Rhythm, No Edema, No Gallop, No JVD, No Murmur, Normal Peripheral Pulses Gastrointestinal: Normal Bowel Sounds, No Organomegaly, No Pulsatile Mass, Non Tender, Soft Back: Normal Inspection, No CVA Tenderness, No Vertebral Tenderness Extremity: Normal Capillary Refill, Normal Inspection, Normal Range of Motion, Non Tender, No Calf Tenderness, No Pedal Edema Neurologic/Psychiatric: Alert, Oriented x3, No Motor/Sensory Deficits, Normal Mood/Affect Skin: Normal Color, Warm/Dry Lymphatic: No Adenopathy Results Results/Procedures Labs Laboratory Tests 08/07/18 03:20 Patient resulted labs reviewed. Assessment/Plan Admission Diagnosis Assessment: Facility acquired pneumonia Acute pulmonary edema CAD recent CABG 07/28/18 Elevated BNP Former smoker Plan: IV diuresis IV abx Nebs O2 Monitor closely Admission Status: Inpatient Order (span 2 midnights) Reason for Inpatient Admission: Pulmonary edema with pneumonia in recent CABG will require IV diuresis and cardiology monitoring Diagnosis/Problems Diagnosis/Problems (1) Elevated brain natriuretic peptide (BNP) level Status: Acute (2) Pneumonia Status: Acute Qualifiers: Pneumonia type: due to unspecified organism Laterality: left Lung location: lower lobe of lung Qualified Codes: J18.1 - Lobar pneumonia, unspecified organism (3) Fluid overload Status: Acute Qualifiers: Hypervolemia type: unspecified Qualified Codes: E87.70 - Fluid overload, unspecified (4) Hx of CABG Status: Chronic (5) CAD (coronary artery disease) Status: Chronic Qualifiers: Coronary Disease-Associated Artery/Lesion type: [place] artery [place] vs. transplanted heart: [place] heart Associated angina: without angina Qualified Codes: I25.10 - Atherosclerotic heart disease of [place] coronary artery without angina pectoris (6) COPD (chronic obstructive pulmonary disease) Status: Chronic Qualifiers: COPD type: unspecified COPD Qualified Codes: J44.9 - Chronic obstructive pulmonary disease, unspecified (7) Leukocytosis Status: Acute Qualifiers: Leukocytosis type: leukemoid reaction Qualified Codes: D72.823 - Leukemoid reaction (8) Anemia Status: Acute Qualifiers: Anemia type: unspecified type Qualified Codes: D64.9 - Anemia, unspecified Clinical Quality Measures DVT/VTE Risk/Contraindication: Risk Factor Score Per Nursin RFS Level Per Nursing on Admit: 4+=Very High BRITNI RADFORD DO Aug 07, 2018 10:49
[2018-08-07] MEDS: PIPERACILLIN SODIUM/TAZOBACTAM 4.5 GM in NS (IVPB) 100 ML IV SCH ×2 (13:36→22:01)
[2018-08-07] MEDS: methylPREDNISolone 125 MG (Solu-MEDROL) VIAL IV SCH ×2 (14:06→20:55)
[2018-08-07] MEDS ORDERED: ONDANSETRON 4 MG (ZOFRAN) ORAL DISSOLVE TAB PO PRN (17:00)
[2018-08-07] MEDS ORDERED: diphenhydrAMINE 25 MG TAB (BENADRYL) PO PRN (17:00)
[2018-08-07] MEDS ORDERED: CATHETER FLUSH 10 ML SYR IV PRN (17:15)
[2018-08-07] MEDS: ONDANSETRON 4 MG/2 ML (SDV) Z0FRAN IVP PRN (17:20)
[2018-08-07] MEDS: ALPRAZolam 0.25 MG (XANAX) TAB PO PRN (17:20)
[2018-08-07] MEDS: VANCOMYCIN 1 GM/NS 250 ML IVPB IV SCH ×2 (17:55)
[2018-08-07] MEDS: FUROSEMIDE 40 MG/4 ML INJ (LASIX) IV SCH (20:51)
[2018-08-07] MEDS: CATHETER FLUSH 10 ML SYR IV SCH (22:02)
[2018-08-08] VITALS: BP 107/42
[2018-08-08] MEDS: fentaNYL INJECTION 100 MCG/2 ML AMP IVP PRN ×4 (00:30→21:06)
[2018-08-08] MEDS: RT-ALBUTEROL/IPRATROPIUM 3 ML (DUONEB) VIAL INH SCH ×6 (02:25→22:25)
[2018-08-08 03:24] LABS: BASOPHILS % (AUTO) 0 % (0-10); EOSINOPHILS # (AUTO) 0.1 10^3/uL (0.0-0.3); EOSINOPHILS % (AUTO) 0 % (0-10); HEMATOCRIT 27 % (35-52); HEMOGLOBIN 8.5 G/DL (11.5-16.0); LYMPHOCYTES # (AUTO) 1.3 X 10^3 (1.0-4.0); LYMPHOCYTES % (AUTO) 6 % (12-44); MEAN CORPUSCULAR HEMOGLOBIN 31 PG (25-34); MEAN CORPUSCULAR HGB CONC 32 G/DL (32-36); MEAN CORPUSCULAR VOLUME 98 FL (80-99); MEAN PLATELET VOLUME 9.4 FL (7.4-10.4); MONOCYTES # (AUTO) 0.6 X 10^3 (0.0-1.0); MONOCYTES % (AUTO) 3 % (0-12); NEUTROPHILS # (AUTO) 21.6 X 10^3 (1.8-7.8); NEUTROPHILS % (AUTO) 91 % (42-75); PLATELET COUNT 573 10^3/uL (130-400); RED BLOOD COUNT 2.72 10^6/uL (4.35-5.85); RED CELL DISTRIBUTION WIDTH 16.7 % (10.0-14.5); WHITE BLOOD COUNT 23.7 10^3/uL (4.3-11.0)
[2018-08-08 03:42] LABS: ALANINE AMINOTRANSFERASE 16 U/L (0-55); ALKALINE PHOSPHATASE 21 U/L (40-136); BILIRUBIN,TOTAL 0.9 MG/DL (0.1-1.0); BUN/CREATININE RATIO 22; CALCIUM 8.9 MG/DL (8.5-10.1); CARBON DIOXIDE 24 MMOL/L (21-32); CHLORIDE 101 MMOL/L (98-107); CREATININE SERUM 0.82 MG/DL (0.60-1.30); GFR ESTIMATED > 60; GLUCOSE 195 MG/DL (70-105); SODIUM 138 MMOL/L (135-145); TOTAL PROTEIN 6.6 GM/DL (6.4-8.2)
[2018-08-08] MEDS: CATHETER FLUSH 10 ML SYR IV SCH ×3 (06:05→22:00)
[2018-08-08] MEDS: VANCOMYCIN 1 GM/NS 250 ML IVPB IV SCH ×4 (06:05→22:18)
[2018-08-08] MEDS: PIPERACILLIN SODIUM/TAZOBACTAM 4.5 GM in NS (IVPB) 100 ML IV SCH ×3 (07:31→23:28)
[2018-08-08] MEDS: NICOTINE 21 MG (NICODERM) PATCH TD SCH (07:44)
[2018-08-08] MEDS: lisINopril 5 MG (PRINIVIL) TABLET PO SCH (07:44)
[2018-08-08] MEDS: meTOproloL SUCCINATE 50 MG (TOPROL XL) TAB PO SCH (07:45)
[2018-08-08] MEDS: ASPIRIN 81 MG CHEW (CHILDREN'S ASA) PO SCH (07:45)
[2018-08-08] MEDS: oxyCODONE/APAP 5/325MG (PERCOCET 5) TABLET PO PRN ×3 (07:45→18:21)
[2018-08-08] MEDS: ALPRAZolam 0.25 MG (XANAX) TAB PO PRN (07:45)
[2018-08-08 08:00] VITALS: BP_SYST 103; BP_SYST 120; BP_DIAS 62; BP_DIAS 63
[2018-08-08] MEDS: ATORVASTATIN 20 MG (LIPITOR) TABLET PO SCH ×2 (08:31→21:05)
--- NOTE | 2018-08-08 09:30 | Progress Note ---
Subjective Date Seen by a Provider: Aug 08, 2018 Time Seen by a Provider: 08:10 Subjective/Events-last exam PT REPORTS THAT SHE IS HAVING PAIN IN HER CHEST - WORSE WITH MOVEMENT OR DEEP BREATHING. SHE DENIES PAIN IN HER LEGS, SHE DOES COMPLAIN OF SHORTNESS OF BREATH. SHE DENIES NAUSEA, ABDOMINAL PAIN, URINARY CONCERNS. Review of Systems General: No Chills; Fatigue HEENT: No Head Aches Pulmonary: Dyspnea, Cough Cardiovascular: Chest Pain; No: Palpitations, Edema Gastrointestinal: No: Nausea, Abdominal Pain Genitourinary: No Dysuria Neurological: Weakness; No: Confusion Objective Exam Last Set of Vital Signs Vital Signs Date Time Temp Pulse Resp B/P (MAP) Pulse Ox O2 Delivery O2 Flow Rate FiO2 08/08/18 09:00 96 Nasal Cannula 3.00 08/08/18 08:00 100 103/63 (76) 08/08/18 08:00 99.1 28 Capillary Refill : Less Than 3 SecondsLess Than 3 Seconds I&O Intake and Output 08/08/18 00:00 Intake Total 930 ml Output Total 4125 ml Balance -3195 ml Intake Oral 680 ml IV Total 250 ml Output Urine Total 4125 ml Daily Weight Change No General: Alert, Oriented X3, Cooperative, No Acute Distress HEENT: Atraumatic, PERRLA Neck: Supple Lungs: Other (DECREASED IN LEFT MID-LUNG TO BASE AND RIGHT BASE) Heart: Regular Rate, Other (S3/4) Abdomen: Normal Bowel Sounds, Soft, No Tenderness Extremities: No Clubbing, No Cyanosis, Other (MEDIALLY BILATERALLY - VEIN HARVEST SITES C/D/I - KWAME STILL IN PLACE) Skin: Other (SURGICAL SITES ON CHEST/ABD - KWAME REMOVED, HEALING WELL, THE SURGICAL SITES BILATERAL LOWER LEGS - KWAME STILL IN PLACE) Neuro: Cranial Nerves 3-12 NL Psych/Mental Status: Mental Status NL, Mood NL Results Lab Laboratory Tests 08/08/18 03:15: White Blood Count 23.7H, Red Blood Count 2.72L, Hemoglobin 8.5L, Hematocrit 27L , Mean Corpuscular Volume 98, Mean Corpuscular Hemoglobin 31, Mean Corpuscular Hemoglobin Concent 32, Red Cell Distribution Width 16.7H, Platelet Count 573H, Mean Platelet Volume 9.4, Neutrophils (%) (Auto) 91H, Lymphocytes (%) (Auto) 6L , Monocytes (%) (Auto) 3, Eosinophils (%) (Auto) 0, Basophils (%) (Auto) 0, Neutrophils # (Auto) 21.6H, Lymphocytes # (Auto) 1.3, Monocytes # (Auto) 0.6, Eosinophils # (Auto) 0.1, Basophils # (Auto) 0.0, Sodium Level 138, Potassium Level 4.0, Chloride Level 101, Carbon Dioxide Level 24, Anion Gap 13, Blood Urea Nitrogen 18, Creatinine 0.82, Estimat Glomerular Filtration Rate > 60, BUN/ Creatinine Ratio 22, Glucose Level 195H, Calcium Level 8.9, Corrected Calcium 8.9, Total Bilirubin 0.9, Aspartate Amino Transf (AST/SGOT) 21, Alanine Aminotransferase (ALT/SGPT) 16, Alkaline Phosphatase 21L, B-Type Natriuretic Peptide 916.4H, Total Protein 6.6, Albumin 4.0 Microbiology 08/07/18 Blood Culture - Preliminary, Resulted No growth 08/07/18 Influenza Types A,B Antigen (MARCY) - Final, Complete Assessment/Plan Assessment/Plan Assess & Plan/Chief Complaint PNEUMONIA - HOSPITAL ACQUIRED ACUTE PULMONARY EDEMA CAD WITH CABG ON 07/28/18 HEART FAILURE POST-OPERATIVELY ELEVATED WHITE COUNT HX OF TOBACCOISM PNEUMONIA - HOSPITAL ACQUIRED WITH ACUTE PULMONARY EDEMA - CONTINUE WITH BROAD SPECTRUM IV ANTIBIOTICS - MONITOR SYMPTOMS - REPEAT CHEST XRAYS SERIALLY. CAD WITH CABG ON 07/28/18 - SUPPORTIVE CARE, DEFER TO DR. MCMANUS - PT WILL NEED KWAME REMOVED FROM HER LOWER LEGS WITH STERI STRIPS PLACED IN THE NEXT FEW DAYS. HEART FAILURE POST-OPERATIVELY - CONTINUE WITH LASIX PLEURAL EFFUSIONS - CHECK PLEURAL FLUID WITH ULTRASOUND. ELEVATED WHITE COUNT - PT HAS CHRONICALLY ELEVATED WBC'S IN THE 12 - 15 RANGE, BUT SHE HAS WHITE COUNT IN THE 20'S - CONTINUE WITH BROAD SPECTRUM IV ANTIBIOTICS. HX OF TOBACCOISM - PT HAS STOPPED SMOKING POST-CABG EMPHYSEMA - CHRONIC - SUPPORTIVE CARE Clinical Quality Measures DVT/VTE Risk/Contraindication: Risk Factor Score Per Nursin RFS Level Per Nursing on Admit: 4+=Very High MAULIK COLLIER MD Aug 08, 2018 09:30
--- NOTE | 2018-08-08 09:32 | Cardiology Progress Note ---
Subjective Date Seen by Provider: Aug 08, 2018 Time Seen by Provider: 09:25 Subjective/Events-last exam Patient sitting up in chair, complaining of dyspnea this morning. Denies any chest pain. Review of Systems General: No Night Sweats; Fatigue; No Malaise HEENT: No Visual Changes, No Dysphasia Pulmonary: Dyspnea, Cough, Pleuritic Chest Pain Cardiovascular: Edema; No: Chest Pain, Palpitations, Paroxysmal Noc. Dyspnea Gastrointestinal: No: Nausea, Vomiting, Abdominal Pain Genitourinary: No Dysuria, No Frequency Musculoskeletal: No: neck pain, back pain Neurological: No: Weakness, Numbness, Change in speech, Confusion Objective-Cardiology Exam Last Set of Vital Signs Vital Signs 08/08/18 08/08/18 08:00 09:00 Temp 99.1 Resp 28 Pulse Ox 96 O2 Delivery Nasal Cannula O2 Flow Rate 3.00 Capillary Refill : Less Than 3 SecondsLess Than 3 Seconds I&O Intake and Output 08/08/18 00:00 Intake Total 930 ml Output Total 4125 ml Balance -3195 ml Intake Oral 680 ml IV Total 250 ml Output Urine Total 4125 ml Daily Weight Change No General: Alert, Oriented X3, Cooperative HEENT: Atraumatic, PERRLA Neck: Supple, No JVD, No Thyromegaly Lungs: Other (decreased breath sounds bibasilarly) Heart: Regular Rate, Normal S1, Normal S2 Abdomen: No Tenderness Extremities: No Clubbing, No Cyanosis Skin: No Rashes, No Significant Lesion Neuro: Normal Speech, Cranial Nerves 3-12 NL Psych/Mental Status: Mental Status NL, Mood NL Results Lab Laboratory Tests 08/08/18 03:15 A/P-Cardiology Admission Diagnosis Congestive heart failure Pneumonia Coronary artery disease Hypertension Assessment/Plan Congestive heart failure, acute decompensated left ventricular systolic dysfunction, probably ischemic cardiomyopathy, patient has S3/S4 on exam with wet rales, started on Lasix, continue with aggressive diuresis and monitor tolerance and response. I will evaluate 2-D echocardiogram. Coronary artery disease, status post myocardial infarction occurred early in July 2018, had CABG 4 done on July 30, 2018 in [place] and she was discharged and drove back to [place]. Troponin is negative. EKG showed diffuse T-wave inversion, probably her baseline. Continue to monitor, no changes at this time, restart aspirin Pneumonia, history of COPD,continue antibiotics, continue to monitor Chest pain, musculoskeletal from the incision, appeared to be healing well, leg wound at the site of the vein harvest also is healing well. Continue to monitor Hypertension, controlled, borderline hypotension, continue to montiro. Hyperlipidemia, on Lipitor, continue to monitor. COPD, acute exacerbation, acute respiratory insufficiency, history of emphysema. Tobaccoism, patient has stopped smoking after her recent hospitalization and bypass surgery, encouraged to continue with smoking cessation Clinical Quality Measures DVT/VTE Risk/Contraindication: Risk Factor Score Per Nursin RFS Level Per Nursing on Admit: 4+=Very High NILDA YOU Aug 08, 2018 09:32
[2018-08-08] MEDS ORDERED: FUROSEMIDE 40 MG/4 ML INJ (LASIX) ONE (09:37)
[2018-08-08] MEDS ORDERED: FUROSEMIDE 40 MG/4 ML INJ (LASIX) IVP SCH (09:45)
--- NOTE | 2018-08-08 10:01 | Diagnostic Imaging Report ---
Indication: Shoulder pain, fall, shortness breath, coronary artery disease. Comparison: 08/07/2018 Findings: A single view of the chest demonstrates a stable cardiac enlargement without overt pulmonary edema. There is continued atelectasis, effusion and infiltrate in the left base. Right lung is stable. There was no pneumothorax. Sternal wires are midline. Impression: Stable atelectasis, effusion and infiltrate in the left lung base. No interval change. Dictated by: Dictated on workstation # [id number]
[2018-08-08] MEDS ORDERED: OXYC-471 PO (10:54)
[2018-08-08] MEDS ORDERED: AMIO200T4 PO (10:54)
[2018-08-08] MEDS ORDERED: FAMO20TA5 PO (10:54)
[2018-08-08] MEDS ORDERED: FURO20TA4 PO (10:54)
[2018-08-08] MEDS ORDERED: CLOP75TA28 PO (10:54)
[2018-08-08] MEDS ORDERED: POTA10TA10 PO (10:54)
[2018-08-08] MEDS ORDERED: ATOR20TA66 PO (10:54)
[2018-08-08] MEDS ORDERED: CEPH250C PO (10:54)
[2018-08-08] MEDS ORDERED: NICO-588 TD (10:55)
--- NOTE | 2018-08-08 10:57 | NUR ---
SPOKE WITH THE PATIENT ABOUT HER MEDICATIONS. SHE HAD HER MEDICATIONS THAT WERE PRESCRIBED TO HER ON 08-03 AND I VERIFIED THEM WITH THE EXT MED HX. SHE VERIFIED THAT SHE HAS BEEN TAKING THEM TO THE BEST OF HER ABILITY WHILE SHE IS AT HOME. SHE TAKES ASPIRIN 81MG OTC AND MELATONIN PRN. SHE STATES SHE ALSO INTENDS TO GET THE NICOTINE PATCHES OTC. WHEN SHE WAS DISCHARGED FROM HERE ON 08-06 SHE WAS PRESCRIBED METOPROLOL AND CEFDINIR. SHE HAS NOT PICKED THEM UP YET, I REMOVED THE CEFDINIR AND LEFT THE ANTIBIOTIC SHE HAD FROM [facility] ON THE MED REC. I LEFT THE METOPROLOL ON THE MED REC HOWEVER THE PATIENT HAD NOT STARTED IT AT HOME YET.
[2018-08-08 11:46] VITALS: BP 105/52
--- NOTE | 2018-08-08 13:35 | Cardiology Progress Note ---
Subjective Date Seen by Provider: Aug 08, 2018 Time Seen by Provider: 13:34 Subjective/Events-last exam patient is sitting up in a chair, generalized weakness and fatigue with shortness of breath, pedal edema. Pain at the surgical site Review of Systems General: No Chills, No Night Sweats; Fatigue, Malaise; No Appetite, No Other HEENT: No Head Aches, No Visual Changes, No Eye Pain, No Ear Pain, No Dysphasia , No Sinus Congestion, No Post Nasal Drip, No Sore Throat, No Other Pulmonary: Dyspnea, Cough; No Pleuritic Chest Pain, No Other Cardiovascular: Chest Pain, Edema; No: Palpitations, Orthopnea, Paroxysmal Noc. Dyspnea, Lt Headedness, Other Objective-Cardiology Exam Last Set of Vital Signs Vital Signs 08/08/18 08/08/18 11:46 12:00 Temp 98.6 Pulse 91 Resp 20 B/P (MAP) 105/52 (69) Pulse Ox 96 O2 Delivery Nasal Cannula O2 Flow Rate 2.00 Capillary Refill : Less Than 3 SecondsLess Than 3 Seconds I&O Intake and Output 08/08/18 00:00 Intake Total 930 ml Output Total 4125 ml Balance -3195 ml Intake Oral 680 ml IV Total 250 ml Output Urine Total 4125 ml Daily Weight Change No General: Alert, Oriented X3, Cooperative HEENT: Atraumatic, PERRLA Neck: Supple, No JVD, No Thyromegaly Lungs: Other (decreased breath sounds bibasilarly) Heart: Regular Rate, Normal S1, Normal S2 Abdomen: No Tenderness Extremities: No Clubbing, No Cyanosis Skin: No Rashes, No Significant Lesion Neuro: Normal Speech, Cranial Nerves 3-12 NL Psych/Mental Status: Mental Status NL, Mood NL Results Lab Laboratory Tests 08/08/18 03:15 A/P-Cardiology Admission Diagnosis Congestive heart failure Pneumonia Coronary artery disease Hypertension Assessment/Plan Congestive heart failure, echocardiogram showed preserved left ventricular systolic function, patient had pericardial rub probably secondary to the recent surgery. She is fluid overloaded and receiving Lasix. Continue to monitor Coronary artery disease, status post myocardial infarction occurred early in July 2018, had CABG 4 done on July 30, 2018 in [place] and she was discharged and drove back to [place]. Troponin is negative. EKG showed diffuse T-wave inversion, probably her baseline. Continue to monitor, no changes at this time, restart aspirin Pneumonia, history of COPD, sepsis, worsening white count, continue with antibiotics and monitor Chest pain, musculoskeletal from the incision, appeared to be healing well, leg wound at the site of the vein harvest also is healing well. Continue to monitor Hypertension, controlled, borderline hypotension, decrease metoprolol dose and continue to monitor. Hyperlipidemia, on Lipitor, continue to monitor. COPD, acute exacerbation, acute respiratory insufficiency, history of emphysema. Tobaccoism, patient has stopped smoking after her recent hospitalization and bypass surgery, encouraged to continue with smoking cessation Clinical Quality Measures DVT/VTE Risk/Contraindication: Risk Factor Score Per Nursin RFS Level Per Nursing on Admit: 4+=Very High SUPA MCMANUS MD Aug 08, 2018 13:35
--- NOTE | 2018-08-08 15:42 | Diagnostic Imaging Report ---
CLINICAL INDICATION: Patient with recent fall. Patient has CHF and pulmonary edema. COMPARISON: None EXAM: Real-time carotid Doppler duplex imaging is performed bilaterally. Peak systolic velocity, ICA/CCA peak systolic ratio, spectral analysis, and vascular morphology are studied. Findings: ARTERY VELOCITY Right Left CCA 0.92 m/s 1.19 m/s ICA 0.83 m/s 1.14 m/s ECA 1.04 m/s 2.22 m/s ICA/CCA 0.91 0.96 VERT.ART Antegrade Not visualized and unable to be evaluated. There is atherosclerotic plaque seen involving the bilateral carotid arteries. There is no significant grayscale stenosis seen. There are also no elevated velocities seen involving the remainder of the bilateral carotid arteries. There is no grayscale evidence of significant stenosis involving the proximal left ECA with elevated velocities of 2.22 m/s. The vessel is tortuous in this region, and the elevated velocities may be related to vascular tortuosity. IMPRESSION: 1: The left vertebral artery is not visualized and cannot be evaluated. This vessel may be diminutive as a normal variation or occluded. CT angiogram of the head and neck is suggested for further evaluation. The right vertebral artery is patent. 2: The remainder of the vessels show mild bilateral carotid artery atherosclerotic disease with no grayscale or Doppler evidence of significant vascular stenosis. 3: There is elevated velocity involving the proximal left ECA with no evidence of grayscale stenosis. The elevated velocity is suspected to be due to tortuous vessel in this region. Dictated by: Dictated on workstation # [id number]
--- NOTE | 2018-08-08 16:52 | Diagnostic Imaging Report ---
CLINICAL INDICATION: Patient with recent fall. Evaluate volume of left pleural effusion. EXAM: Focused ultrasound evaluation of the left lung base region. COMPARISON: CT scan of the chest without contrast dated 06/02/2017. FINDINGS AND IMPRESSION: There is a 13.5 cm x 9.5 cm x 8.3 cm pleural effusion in the left lung base region which has an approximate volume of 542 cc. Dictated by: Dictated on workstation # [id number]
[2018-08-08] MEDS ORDERED: TROUGH ORDER-PHARMACY XX NR (18:00)
[2018-08-08] MEDS: FUROSEMIDE 40 MG/4 ML INJ (LASIX) IVP SCH (18:25)
[2018-08-08 20:00] VITALS: BP 113/53
[2018-08-09] VITALS: BP 127/63
[2018-08-09] MEDS: DOCUSATE SODIUM 100 MG (COLACE) CAP PO PRN (00:17)
[2018-08-09] MEDS: oxyCODONE/APAP 5/325MG (PERCOCET 5) TABLET PO PRN ×4 (00:17→19:48)
[2018-08-09] MEDS: fentaNYL INJECTION 100 MCG/2 ML AMP IVP PRN ×4 (01:40→22:07)
[2018-08-09] MEDS: ALPRAZolam 0.25 MG (XANAX) TAB PO PRN ×2 (01:52→22:21)
[2018-08-09] MEDS: RT-ALBUTEROL/IPRATROPIUM 3 ML (DUONEB) VIAL INH SCH ×6 (02:30→23:14)
[2018-08-09 04:00] VITALS: BP 113/57
[2018-08-09] MEDS: FUROSEMIDE 40 MG/4 ML INJ (LASIX) IVP SCH ×2 (07:35→16:41)
[2018-08-09] MEDS: CATHETER FLUSH 10 ML SYR IV SCH ×3 (07:35→22:06)
[2018-08-09] MEDS: PIPERACILLIN SODIUM/TAZOBACTAM 4.5 GM in NS (IVPB) 100 ML IV SCH ×3 (07:36→22:18)
--- NOTE | 2018-08-09 08:19 | Cardiology Progress Note ---
Subjective Date Seen by Provider: Aug 09, 2018 Time Seen by Provider: 08:17 Subjective/Events-last exam patient is sitting in bed, still having shortness of breath, pain at her surgical site. No palpitation. X-ray showed large pleural effusion Review of Systems General: No Chills, No Night Sweats, No Fatigue, No Malaise, No Appetite, No Other HEENT: No Head Aches, No Visual Changes, No Eye Pain, No Ear Pain, No Dysphasia , No Sinus Congestion, No Post Nasal Drip, No Sore Throat, No Other Pulmonary: Dyspnea, Cough; No Pleuritic Chest Pain, No Other Cardiovascular: Chest Pain; No: Palpitations, Orthopnea, Paroxysmal Noc. Dyspnea, Edema, Lt Headedness, Other Objective-Cardiology Exam Last Set of Vital Signs Vital Signs 08/09/18 04:00 Temp 97.9 Pulse 85 Resp 16 B/P (MAP) 113/57 (75) Pulse Ox 94 O2 Delivery Nasal Cannula O2 Flow Rate 2.00 Capillary Refill : Less Than 3 SecondsLess Than 3 Seconds I&O Intake and Output 08/09/18 00:00 Intake Total 1100 ml Output Total 2025 ml Balance -925 ml IV Total 600 ml Tube Feeding 500 ml Output Urine Total 2025 ml General: Alert, Oriented X3, Cooperative HEENT: Atraumatic, PERRLA Neck: Supple, No JVD, No Thyromegaly Lungs: Other (decreased breath sounds bibasilarly) Heart: Regular Rate, Normal S1, Normal S2 Abdomen: Soft, No Tenderness Extremities: No Clubbing, No Cyanosis Skin: No Rashes, No Significant Lesion Neuro: Normal Speech, Cranial Nerves 3-12 NL Psych/Mental Status: Mental Status NL, Mood NL Results Lab Laboratory Tests Test 08/08/18 21:22 Range/Units Vancomycin Level Trough 16.3 10.0-20.0 UG/ML A/P-Cardiology Admission Diagnosis Congestive heart failure Pneumonia Coronary artery disease Hypertension Assessment/Plan Congestive heart failure, echocardiogram showed preserved left ventricular systolic function, patient had pericardial rub probably secondary to the recent surgery. continue with Lasix and monitor. Pleural effusion secondary to CABG. Continue on diuretics and monitor. Coronary artery disease, status post myocardial infarction occurred early in July 2018, had CABG 4 done on July 30, 2018 in [place] and she was discharged and drove back to [place]. Troponin is negative. EKG showed diffuse T-wave inversion, probably her baseline. Continue to monitor, no changes at this time, restart aspirin Pneumonia, history of COPD, sepsis, worsening white count, continue with antibiotics and monitor Chest pain, musculoskeletal from the incision, appeared to be healing well, leg wound at the site of the vein harvest also is healing well. Continue to monitor Hypertension, controlled, borderline hypotension, decrease metoprolol dose and continue to monitor. Hyperlipidemia, on Lipitor, continue to monitor. COPD, acute exacerbation, acute respiratory insufficiency, history of emphysema. Tobaccoism, patient has stopped smoking after her recent hospitalization and bypass surgery, encouraged to continue with smoking cessation Clinical Quality Measures DVT/VTE Risk/Contraindication: Risk Factor Score Per Nursin RFS Level Per Nursing on Admit: 4+=Very High SUPA MCMANUS MD Aug 09, 2018 08:19
--- NOTE | 2018-08-09 08:29 | Progress Note ---
Subjective Date Seen by a Provider: Aug 09, 2018 Time Seen by a Provider: 08:30 Subjective/Events-last exam PT REPORTS THAT SHE IS FEELING SHORT OF BREATH, SHE HAS CHEST PAIN, SHE DOES NOT HAVE DIZZINESS, ABDOMINAL PAIN, NAUSEA. SHE REPORTS THAT SHE IS FEELING BETTER, JUST REALLY FATIGUED. Review of Systems General: Fatigue HEENT: No Head Aches Pulmonary: Dyspnea; No Cough Cardiovascular: Chest Pain; No: Palpitations, Edema Gastrointestinal: No: Nausea, Abdominal Pain Musculoskeletal: No: back pain Neurological: Weakness; No: Confusion Objective Exam Last Set of Vital Signs Vital Signs Date Time Temp Pulse Resp B/P (MAP) Pulse Ox O2 Delivery O2 Flow Rate FiO2 08/09/18 08:18 93 Nasal Cannula 2.00 08/09/18 04:00 97.9 85 16 113/57 (75) Capillary Refill : Less Than 3 SecondsLess Than 3 Seconds I&O Intake and Output 08/09/18 00:00 Intake Total 1100 ml Output Total 2025 ml Balance -925 ml IV Total 600 ml Tube Feeding 500 ml Output Urine Total 2025 ml General: Alert, Oriented X3, Cooperative HEENT: Atraumatic, PERRLA Neck: Supple, No JVD Lungs: Other (DECREASED BREATH SOUNDS FROM LEFT MID LUNG TO BASE, AND RIGHT BASE) Heart: Regular Rate, Normal S1, Normal S2 Abdomen: Soft, No Tenderness Extremities: No Clubbing, No Cyanosis Skin: Other (POST-OP CENTRAL CHEST, UPPER ABD - SURGICAL SITES HEALING WELL, BILATERAL MEDIAL LOWER LEGS TO MID-THIGHS - KWAME IN PLACE) Neuro: Normal Speech, Cranial Nerves 3-12 NL Psych/Mental Status: Mental Status NL, Mood NL Results Lab Laboratory Tests 08/08/18 21:22: Vancomycin Level Trough 16.3 Microbiology 08/07/18 Blood Culture - Preliminary, Resulted No growth 08/07/18 Influenza Types A,B Antigen (MARCY) - Final, Complete Assessment/Plan Assessment/Plan Assess & Plan/Chief Complaint PNEUMONIA - HOSPITAL ACQUIRED ACUTE PULMONARY EDEMA CAD WITH CABG ON 07/28/18 HEART FAILURE POST-OPERATIVELY ELEVATED WHITE COUNT HX OF TOBACCOISM PNEUMONIA - HOSPITAL ACQUIRED WITH ACUTE PULMONARY EDEMA - CONTINUE WITH BROAD SPECTRUM IV ANTIBIOTICS - MONITOR SYMPTOMS - REPEAT CHEST XRAYS SERIALLY. CAD WITH CABG ON 07/28/18 - SUPPORTIVE CARE, DEFER TO DR. MCMANUS - PT WILL NEED KWAME REMOVED FROM HER LOWER LEGS WITH STERI STRIPS PLACED IN THE NEXT FEW DAYS. HEART FAILURE POST-OPERATIVELY -AND POST-OP PLEURAL EFFUSIONS - CONTINUE WITH LASIX ELEVATED WHITE COUNT - PT HAS CHRONICALLY ELEVATED WBC'S IN THE 12 - 15 RANGE, BUT SHE HAS WHITE COUNT IN THE 20'S - CONTINUE WITH BROAD SPECTRUM IV ANTIBIOTICS. - REPEAT SERIAL LABS. HX OF TOBACCOISM - PT HAS STOPPED SMOKING POST-CABG PT WILL NEED THERAPY - WILL TRANSFER DOWN TO 4TH FLOOR FOR THERAPY AND FURTHER MONITORING. EMPHYSEMA - CHRONIC - SUPPORTIVE CARE Clinical Quality Measures DVT/VTE Risk/Contraindication: Risk Factor Score Per Nursin RFS Level Per Nursing on Admit: 4+=Very High MAULIK COLLIER MD Aug 09, 2018 08:29
[2018-08-09] MEDS: ASPIRIN 81 MG CHEW (CHILDREN'S ASA) PO SCH (08:44)
[2018-08-09] MEDS: meTOproloL SUCCINATE 50 MG (TOPROL XL) TAB PO SCH (08:44)
[2018-08-09] MEDS: lisINopril 5 MG (PRINIVIL) TABLET PO SCH (08:44)
[2018-08-09] MEDS: NICOTINE 21 MG (NICODERM) PATCH TD SCH (08:45)
[2018-08-09] MEDS: NICOTINE PATCH REMOVAL TP SCH (08:45)
[2018-08-09 08:49] LABS: HEMOGLOBIN 9.6 G/DL (11.5-16.0); RED BLOOD COUNT 3.08 10^6/uL (4.35-5.85); RED CELL DISTRIBUTION WIDTH 17.2 % (10.0-14.5); WHITE BLOOD COUNT 25.1 10^3/uL (4.3-11.0)
[2018-08-09 09:00] VITALS: BP 115/66
[2018-08-09 09:14] LABS: ALANINE AMINOTRANSFERASE 14 U/L (0-55); ALBUMIN 4.1 GM/DL (3.2-4.5); ALKALINE PHOSPHATASE 21 U/L (40-136); BILIRUBIN,TOTAL 0.7 MG/DL (0.1-1.0); BUN/CREATININE RATIO 21; CALCIUM 9.2 MG/DL (8.5-10.1); CARBON DIOXIDE 24 MMOL/L (21-32); CHLORIDE 100 MMOL/L (98-107); GFR ESTIMATED > 60; GLUCOSE 139 MG/DL (70-105); POTASSIUM 3.8 MMOL/L (3.6-5.0); SODIUM 138 MMOL/L (135-145); TOTAL PROTEIN 7.2 GM/DL (6.4-8.2)
[2018-08-09] MEDS: VANCOMYCIN 1 GM/NS 250 ML IVPB IV SCH ×4 (10:13→22:07)
[2018-08-09] MEDS: ENOXAPARIN 40 MG/0.4 ML (LOVENOX) SYR SC SCH (10:13)
--- NOTE | 2018-08-09 10:45 | NUR ---
REPORT RECEIVED FROM [employer] [facility]. PT TRANSPORTED TO ROOM 416 VIA WHEELCHAIR. PT DENIES ANY NEEDS AT THIS TIME. WILL CONTINUE TO MONITOR.
[2018-08-09 12:00] VITALS: BP 128/58
[2018-08-09 15:44] VITALS: BP 102/50
[2018-08-09] MEDS: ONDANSETRON 4 MG/2 ML (SDV) Z0FRAN IVP PRN (18:02)
[2018-08-09 19:35] VITALS: BP 128/62
[2018-08-09] MEDS: ATORVASTATIN 20 MG (LIPITOR) TABLET PO SCH (20:43)
[2018-08-10 00:07] VITALS: BP 127/57
[2018-08-10] MEDS: fentaNYL INJECTION 100 MCG/2 ML AMP IVP PRN ×3 (01:48→23:30)
[2018-08-10] MEDS: RT-ALBUTEROL/IPRATROPIUM 3 ML (DUONEB) VIAL INH SCH ×6 (03:00→21:47)
[2018-08-10] MEDS: oxyCODONE/APAP 5/325MG (PERCOCET 5) TABLET PO PRN ×4 (03:31→21:46)
[2018-08-10 04:05] VITALS: BP 131/62
[2018-08-10 06:14] LABS: HEMOGLOBIN 9.9 G/DL (11.5-16.0); MEAN PLATELET VOLUME 8.9 FL (7.4-10.4); RED BLOOD COUNT 3.24 10^6/uL (4.35-5.85); RED CELL DISTRIBUTION WIDTH 16.9 % (10.0-14.5)
[2018-08-10] MEDS: FUROSEMIDE 40 MG/4 ML INJ (LASIX) IVP SCH ×2 (06:14→18:27)
[2018-08-10] MEDS: PIPERACILLIN SODIUM/TAZOBACTAM 4.5 GM in NS (IVPB) 100 ML IV SCH (06:15)
[2018-08-10] MEDS: CATHETER FLUSH 10 ML SYR IV SCH ×3 (06:15→21:50)
[2018-08-10 06:40] LABS: ALANINE AMINOTRANSFERASE 15 U/L (0-55); ALKALINE PHOSPHATASE 22 U/L (40-136); BILIRUBIN,TOTAL 0.6 MG/DL (0.1-1.0); BUN/CREATININE RATIO 17; CALCIUM 8.9 MG/DL (8.5-10.1); CARBON DIOXIDE 29 MMOL/L (21-32); CHLORIDE 102 MMOL/L (98-107); CREATININE SERUM 0.78 MG/DL (0.60-1.30); GFR ESTIMATED > 60; GLUCOSE 100 MG/DL (70-105); MAGNESIUM 2.2 MG/DL (1.8-2.4); POTASSIUM 3.3 MMOL/L (3.6-5.0); SODIUM 143 MMOL/L (135-145); TOTAL PROTEIN 6.8 GM/DL (6.4-8.2)
--- NOTE | 2018-08-10 07:26 | Diagnostic Imaging Report ---
INDICATION: Fell 2 days ago. Complaining of sternal popping, recent CABG. EXAMINATION: Chest 08/10/2018 COMPARISON: 08/08/2018 FINDINGS: Heart is prominent. Pulmonary vasculature is slightly prominent as well. There is atelectasis versus developing infiltrate right lung base with similar findings at the left lung base. A left effusion is noted and similar to prior. No pneumothorax. Sternotomy wires and mediastinal clips are noted and unchanged. No acute osseous abnormality appreciated. IMPRESSION: 1. Left base infiltrate and effusion similar to previous 2. Developing infiltrate right lung base possible versus worsening atelectasis. Remaining chest is unchanged. Dictated by: Dictated on workstation # [id number]
[2018-08-10 08:00] VITALS: BP 125/58
[2018-08-10] MEDS: meTOproloL SUCCINATE 50 MG (TOPROL XL) TAB PO SCH (08:19)
[2018-08-10] MEDS: NICOTINE 21 MG (NICODERM) PATCH TD SCH (08:19)
[2018-08-10] MEDS: lisINopril 5 MG (PRINIVIL) TABLET PO SCH (08:19)
[2018-08-10] MEDS: NICOTINE PATCH REMOVAL TP SCH (08:19)
[2018-08-10] MEDS: ASPIRIN 81 MG CHEW (CHILDREN'S ASA) PO SCH (08:19)
[2018-08-10] MEDS: ENOXAPARIN 40 MG/0.4 ML (LOVENOX) SYR SC SCH (08:22)
--- NOTE | 2018-08-10 08:39 | Progress Note (SOAP) ---
Subjective Time Seen by a Provider: 08:37 Subjective/Events-last exam Patient feeling the same. Patient not moving around much. Potassium 3.3 replaced. White blood cell count 22,000 leukocytosis. Lungs decreased sounds Objective Exam Vital Signs Date Time Temp Pulse Resp B/P (MAP) Pulse Ox O2 Delivery O2 Flow Rate FiO2 08/10/18 04:05 97.9 90 18 131/62 (85) 94 Nasal Cannula 2.00 08/10/18 03:00 95 Nasal Cannula 2.00 08/10/18 01:00 94 08/10/18 00:07 97.8 93 18 127/57 (80) 95 Nasal Cannula 2.00 08/09/18 23:14 92 Nasal Cannula 2.00 08/09/18 19:55 Nasal Cannula 2.00 08/09/18 19:40 92 Nasal Cannula 2.00 08/09/18 19:35 98.3 87 20 128/62 (84) 94 Nasal Cannula 2.00 08/09/18 19:00 86 08/09/18 15:44 98.1 95 24 102/50 (67) 93 Nasal Cannula 2.00 08/09/18 14:48 90 Nasal Cannula 2.00 08/09/18 12:31 92 08/09/18 12:00 97.9 98 20 128/58 (81) 84 Nasal Cannula 2.00 08/09/18 10:57 97 Nasal Cannula 2.00 08/09/18 09:00 91 115/66 (82) Nasal Cannula 2.00 08/09/18 09:00 94 Nasal Cannula 2.00 I & O 08/10/18 07:00 Intake Total 1865 ml Output Total 5 ml Balance 1860 ml Capillary Refill : Less Than 3 SecondsLess Than 3 Seconds General Appearance: No Apparent Distress, WD/WN HEENT: Normal ENT Inspection Neck: Full Range of Motion Respiratory: No Accessory Muscle Use, No Respiratory Distress, Decreased Breath Sounds Cardiovascular: Regular Rate, Rhythm Results Lab Laboratory Tests 08/09/18 08:40 08/10/18 05:55 Laboratory Tests 08/09/18 08:40: White Blood Count 25.1H, Red Blood Count 3.08L, Hemoglobin 9.6L, Hematocrit 31L , Mean Corpuscular Volume 99, Mean Corpuscular Hemoglobin 31, Mean Corpuscular Hemoglobin Concent 31L, Red Cell Distribution Width 17.2H, Platelet Count 779H, Mean Platelet Volume 9.0, Sodium Level 138, Potassium Level 3.8, Chloride Level 100, Carbon Dioxide Level 24, Anion Gap 14, Blood Urea Nitrogen 17, Creatinine 0.80, Estimat Glomerular Filtration Rate > 60, BUN/Creatinine Ratio 21, Glucose Level 139H, Calcium Level 9.2, Corrected Calcium 9.1, Total Bilirubin 0.7, Aspartate Amino Transf (AST/SGOT) 24, Alanine Aminotransferase (ALT/SGPT) 14, Alkaline Phosphatase 21L, Total Protein 7.2, Albumin 4.1 08/10/18 05:55: White Blood Count 22.0H, Red Blood Count 3.24L, Hemoglobin 9.9L, Hematocrit 32L , Mean Corpuscular Volume 100H, Mean Corpuscular Hemoglobin 31, Mean Corpuscular Hemoglobin Concent 31L, Red Cell Distribution Width 16.9H, Platelet Count 849H, Mean Platelet Volume 8.9, Sodium Level 143, Potassium Level 3.3L, Chloride Level 102, Carbon Dioxide Level 29, Anion Gap 12, Blood Urea Nitrogen 13, Creatinine 0.78, Estimat Glomerular Filtration Rate > 60, BUN/Creatinine Ratio 17, Glucose Level 100, Calcium Level 8.9, Corrected Calcium 8.9, Total Bilirubin 0.6, Aspartate Amino Transf (AST/SGOT) 17, Alanine Aminotransferase ( ALT/SGPT) 15, Alkaline Phosphatase 22L, Total Protein 6.8, Albumin 4.0, Magnesium Level 2.2 Microbiology 08/07/18 Blood Culture - Preliminary, Resulted No growth 08/07/18 Gram Stain, Resulted Pending 08/07/18 Sputum Culture - Final, Resulted Usual upper respiratory maggie Assessment/Plan Assessment/Plan Assess & Plan/Chief Complaint Pneumonia. Acute pulmonary edema. Coronary artery disease. Leukocytosis. Hypokalemia. Clinical Quality Measures DVT/VTE Risk/Contraindication: Risk Factor Score Per Nursin RFS Level Per Nursing on Admit: 4+=Very High Contraindications-Mechi: Other *list below* Other: PT HAS KWAME IN PLACE ON BILATERAL LOWER LEGS WITH RECENT VEIN HARVESTING AND SCD'S WOULD IMPAIR HEALING VALERIE POLO DO Aug 10, 2018 08:39
[2018-08-10] MEDS ORDERED: KCL 20 MEQ TAB (K-DUR) PO NR (08:45)
[2018-08-10] MEDS: DOCUSATE SODIUM 100 MG (COLACE) CAP PO PRN ×2 (09:47→21:46)
[2018-08-10] MEDS: VANCOMYCIN 1 GM/NS 250 ML IVPB IV SCH ×4 (10:19→21:46)
--- NOTE | 2018-08-10 10:55 | Pulmonary Consultation ---
History of Present Illness History of Present Illness Date of Consultation 08/09/18 Late note today is 06/10/18 10:50 Time Seen by Provider: 10:50 Date of Admission Reason for Visit: pneumonia, congestive heart failure History of Present Illness 57yo patient with hx of CAD, COPD, CABG 07/30/18 presented to ED secondary to worsening SOB, fever, and coughing. PT still complains of jame incisional CP. Pt was admitted to ICU for close observation. I am consulted for pulmonary/CC management. PT has been hypoxic and also complains of orthopnea. Pt was recently discharged from hospital with Cefdinir. Allergies and Home Medications Allergies Coded Allergies: No Known Drug Allergies (Unverified , 05/08/15) Home Medications Amiodarone HCl 200 Mg Tablet, PO UD, (Reported) TAKE 2 (200MG) TABLETS 2X DAILY UNTIL 08-05-18 THEN, TAKE 1 (200MG) TABLET 2X DAILY UNTIL 08-12-18 THEN, TAKE 1 TAB DAILY UNTIL 10-21-17 Aspirin 81 Mg Tab.chew, 81 MG PO DAILY Prescribed by: SARABJIT EATON on 08/06/18 1115 Atorvastatin Calcium 20 Mg Tablet, 20 MG PO HS, (Reported) Cephalexin 250 Mg Capsule, 250 MG PO Q6H, (Reported) 10 DAY SUPPLY FILLED 08-03-18 Clopidogrel Bisulfate 75 Mg Tablet, 75 MG PO DAILY, (Reported) Famotidine 20 Mg Tablet, 20 MG PO BID, (Reported) 7 DAY SUPPLY FILLED 08-03-18 Furosemide 20 Mg Tablet, 20 MG PO DAILY, (Reported) 7 DAY THERAPY FILLED 08-03-18 Melatonin 5 Mg Capsule, 5 MG PO HS PRN for SLEEP, (Reported) Metoprolol Succinate 50 Mg Tab.er.24h, 50 MG PO DAILY Prescribed by: SARABJIT EATON on 08/06/18 1115 Nicotine 1 Each Patch.td24, 21 MG TD DAILY, (Reported) Oxycodone HCl/Acetaminophen 1 Each Tablet, 1 TAB PO Q4H PRN for PAIN-MODERATE, ( Reported) Potassium Chloride 10 Meq Tablet.er, 10 MEQ PO DAILY, (Reported) 7 DAYS FILLED 08-03-18 Past Evnbiqd-Tiirll-Stzxss Hx Past Med/Social Hx: Reviewed Nursing Past Med/Soc Hx, Reviewed and Corrections made Patient Social History Alcohol Use: Denies Use Recreational Drug Use: No Smoking Status: Former Smoker Type Used: Cigarettes Former Smoker, Quit: Jul 22, 2018 Recent Foreign Travel: No Contact w/Someone Who Travel: No Recent Infectious Disease Expo: No Recent Hopitalizations: No Physical Abuse: No Sexual Abuse: No Mistreated: No Fear: No Immunizations Up To Date Tetanus Booster (TDap): Unknown PED Vaccines UTD: Yes Date of Pneumonia Vaccine: Jul 17, 2017 Date of Influenza Vaccine: Aug 03, 2018 Seasonal Allergies Seasonal Allergies: No Past Medical History Surgeries: Yes (CARPAL TUNNEL, OPEN HEART-4 VESSEL CABG 07/30/18) Cardiac, CABG, Hysterectomy, Oophorectomy, Open Heart Surgery, Orthopedic Respiratory: Yes Asthma, COPD Currently Using CPAP: No Currently Using BIPAP: No Cardiac: Yes (ID 07/2018 WITH 4 VESSEL CABG 07/30/18) Coronary Artery Disease, Heart Attack, High Cholesterol, Hypertension Neurological: No : No Female 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 Disorders: Denies 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 History: Hysterectomy, Menopausal Genitourinary: No Gastrointestinal: No Musculoskeletal: Yes (PSORIATIC ARTHRITIS) Degenerate Disk Disease, Arthritis, Chronic Back Pain Endocrine: No HEENT: No (EDENTULOUS) Cancer: No Psychosocial: No Integumentary: Yes Psoriasis Blood Disorders: Yes (POST OP ANEMIA 07/2018) Family Medical History No Pertinent Family Hx Review of Systems Time Seen by Provider: 10:54 Constitutional: Fever, Chills, Sweats, Weakness, Malaise, Other Eyes: No: Pain, Vision change, Conjunctivae inflammation, Eyelid inflammation, Other, Redness ENT: No: Ear pain, Ear discharge, Nose pain, Nose discharge, Nose congestion, Mouth pain, Mouth swelling, Throat pain, Throat swelling, Other Respiratory: Cough, Dry, Shortness of breath, SOB with excertion, Wheezing, Pleuritic Pain, Wheezing; No: Hemoptysis, Sputum Cardiovascular: Chest Pain, Orthopnea, Paroxysmal Noc. Dyspnea, Edema; No: Lt Headedness Gastrointestinal: No: Nausea, Vomiting, Abdominal Pain, Diarrhea, Constipation , Melena, Hematochezia, Other Genitourinary: No Dysuria, No Frequency, No Incontinence, No Hematuria, No Retention, No Other Neurological: Weakness Sepsis Event Evaluation Height, Weight, BMI Height: 5'2.00" Weight: 135lbs. 6.0oz. 61.913604yp; 24.9 BMI Method:Stated Exam Exam Vital Signs Date Time Temp Pulse Resp B/P (MAP) Pulse Ox O2 Delivery O2 Flow Rate FiO2 08/10/18 10:08 96 Nasal Cannula 2.00 08/10/18 08:00 Nasal Cannula 2.00 08/10/18 07:09 79 08/10/18 04:05 97.9 90 18 131/62 (85) 94 Nasal Cannula 2.00 08/10/18 03:00 95 Nasal Cannula 2.00 08/10/18 01:00 94 08/10/18 00:07 97.8 93 18 127/57 (80) 95 Nasal Cannula 2.00 08/09/18 23:14 92 Nasal Cannula 2.00 08/09/18 19:55 Nasal Cannula 2.00 08/09/18 19:40 92 Nasal Cannula 2.00 08/09/18 19:35 98.3 87 20 128/62 (84) 94 Nasal Cannula 2.00 08/09/18 19:00 86 08/09/18 15:44 98.1 95 24 102/50 (67) 93 Nasal Cannula 2.00 08/09/18 14:48 90 Nasal Cannula 2.00 08/09/18 12:31 92 08/09/18 12:00 97.9 98 20 128/58 (81) 84 Nasal Cannula 2.00 08/09/18 10:57 97 Nasal Cannula 2.00 I & O 08/10/18 07:00 Intake Total 1965 ml Output Total 5 ml Balance 1960 ml Height & Weight Height: 5'2.00" Weight: 135lbs. 6.0oz. 61.208930xp; 24.9 BMI Method:Stated General Appearance: No Apparent Distress, WD/WN HEENT: Normal ENT Inspection Neck: Full Range of Motion Respiratory: No Accessory Muscle Use, No Respiratory Distress, Decreased Breath Sounds Cardiovascular: Regular Rate, Rhythm Capillary Refill: Less Than 3 Seconds Gastrointestinal: soft, distended (MILDLY DISTENDED, BUT SOFT AND NON-TENDER) Extremity: Normal Capillary Refill, Normal Inspection, Normal Range of Motion, Non Tender, No Calf Tenderness, No Pedal Edema Neurologic/Psychiatric: Alert, Oriented x3, No Motor/Sensory Deficits, Normal Mood/Affect Skin: Normal Color, Warm/Dry Lymphatic: No Adenopathy Results Lab Laboratory Tests 08/09/18 08:40 08/10/18 05:55 Assessment/Plan Assessment/Plan Dyspnea with hypoxia -OXygen -SVNs -Monitor Left Pleural effusion probably secondary to CABG - COPD with tobacco use (recently stopped smoking) -Out patient work up -Monitor Leukocytosis -Monitor close -Continue Abx CHF CAD with recent CABG 07/31 HTN TATE JACKSON DO Aug 10, 2018 10:55
--- NOTE | 2018-08-10 11:03 | Pulmonary Progress Note ---
Subjective Time Seen by a Provider: 11:03 Subjective/Events-last exam PT feels about the same. Sepsis Event Evaluation Height, Weight, BMI Height: 5'2.00" Weight: 135lbs. 6.0oz. 61.040029rk; 24.9 BMI Method:Stated Exam Exam Vital Signs Date Time Temp Pulse Resp B/P (MAP) Pulse Ox O2 Delivery O2 Flow Rate FiO2 08/10/18 10:08 96 Nasal Cannula 2.00 08/10/18 08:00 Nasal Cannula 2.00 08/10/18 07:09 79 08/10/18 04:05 97.9 90 18 131/62 (85) 94 Nasal Cannula 2.00 08/10/18 03:00 95 Nasal Cannula 2.00 08/10/18 01:00 94 08/10/18 00:07 97.8 93 18 127/57 (80) 95 Nasal Cannula 2.00 08/09/18 23:14 92 Nasal Cannula 2.00 08/09/18 19:55 Nasal Cannula 2.00 08/09/18 19:40 92 Nasal Cannula 2.00 08/09/18 19:35 98.3 87 20 128/62 (84) 94 Nasal Cannula 2.00 08/09/18 19:00 86 08/09/18 15:44 98.1 95 24 102/50 (67) 93 Nasal Cannula 2.00 08/09/18 14:48 90 Nasal Cannula 2.00 08/09/18 12:31 92 08/09/18 12:00 97.9 98 20 128/58 (81) 84 Nasal Cannula 2.00 I & O 08/10/18 07:00 Intake Total 1965 ml Output Total 5 ml Balance 1960 ml Height & Weight Height: 5'2.00" Weight: 135lbs. 6.0oz. 61.992741ki; 24.9 BMI Method:Stated General Appearance: WD/WN, Anxious HEENT: Normal ENT Inspection Neck: Full Range of Motion Respiratory: No Accessory Muscle Use, No Respiratory Distress, Decreased Breath Sounds Cardiovascular: Regular Rate, Rhythm Capillary Refill: Less Than 3 Seconds Gastrointestinal: soft, distended (MILDLY DISTENDED, BUT SOFT AND NON-TENDER) Extremity: Normal Capillary Refill, Normal Inspection, Normal Range of Motion, Non Tender, No Calf Tenderness, No Pedal Edema Neurologic/Psychiatric: Alert, Oriented x3, No Motor/Sensory Deficits, Normal Mood/Affect Skin: Normal Color, Warm/Dry Lymphatic: No Adenopathy Results Lab Laboratory Tests 08/09/18 08:40 08/10/18 05:55 Assessment/Plan Assessment/Plan Dyspnea with hypoxia -OXygen -SVNs -Monitor Left Pleural effusion probably secondary to CABG -Monitor COPD with tobacco use (recently stopped smoking) -Out patient work up -Monitor Leukocytosis -Monitor close -Repeat gatica cultures -Change Zosyn to Merrem CHF CAD with recent CABG 07/31 HTN TATE JACKSON DO Aug 10, 2018 11:03
--- NOTE | 2018-08-10 11:53 | Cardiology Progress Note ---
Subjective Date Seen by Provider: Aug 10, 2018 Time Seen by Provider: 11:52 Subjective/Events-last exam patient is sitting in bed, depressed. still having pain at the surgical site, some dyspnea. Review of Systems General: No Chills, No Night Sweats, No Fatigue, No Malaise, No Appetite, No Other HEENT: No Head Aches, No Visual Changes, No Eye Pain, No Ear Pain, No Dysphasia , No Sinus Congestion, No Post Nasal Drip, No Sore Throat, No Other Pulmonary: Dyspnea, Cough; No Pleuritic Chest Pain, No Other Cardiovascular: Chest Pain; No: Palpitations, Orthopnea, Paroxysmal Noc. Dyspnea, Edema, Lt Headedness, Other Objective-Cardiology Exam Last Set of Vital Signs Vital Signs 08/10/18 10:08 Pulse Ox 96 O2 Delivery Nasal Cannula O2 Flow Rate 2.00 Capillary Refill : Less Than 3 SecondsLess Than 3 Seconds I&O Intake and Output 08/10/18 00:00 Intake Total 1535 ml Output Total 405 ml Balance 1130 ml Intake Oral 985 ml IV Total 550 ml Output Urine Total 405 ml # Voids 3 # Bowel Movements 1 General: Alert, Oriented X3, Cooperative, No Acute Distress HEENT: Atraumatic, PERRLA Neck: Supple, No JVD Lungs: Other (DECREASED BREATH SOUNDS FROM LEFT MID LUNG TO BASE, AND RIGHT BASE) Heart: Regular Rate, Normal S1, Normal S2, Other (S3/4) Abdomen: Normal Bowel Sounds, Soft, No Tenderness Extremities: No Clubbing, No Cyanosis, Other (MEDIALLY BILATERALLY - VEIN HARVEST SITES C/D/I - KWAME STILL IN PLACE) Skin: No Rashes, No Breakdown, Other (POST-OP CENTRAL CHEST, UPPER ABD - SURGICAL SITES HEALING WELL, BILATERAL MEDIAL LOWER LEGS TO MID-THIGHS - KWAME IN PLACE) Neuro: Normal Gait, Cranial Nerves 3-12 NL Psych/Mental Status: Mental Status NL, Mood NL Results Lab Laboratory Tests 08/10/18 05:55 A/P-Cardiology Admission Diagnosis Congestive heart failure Pneumonia Coronary artery disease Hypertension Assessment/Plan Congestive heart failure, echocardiogram showed preserved left ventricular systolic function, patient had pericardial rub probably secondary to the recent surgery. continue with Lasix and monitor. Pleural effusion secondary to CABG. Continue on diuretics and monitor. Coronary artery disease, status post myocardial infarction occurred early in July 2018, had CABG 4 done on July 30, 2018 in [place] and she was discharged and drove back to [place]. Troponin is negative. EKG showed diffuse T-wave inversion, probably her baseline. Continue to monitor, no changes at this time, restart aspirin Pneumonia, history of COPD, sepsis, managed by Dr. Ramirez Depression post bypass surgery, COPD, I'll start Zoloft and monitor Chest pain, musculoskeletal from the incision, appeared to be healing well, leg wound at the site of the vein harvest also is healing well. Continue to monitor Hypertension, controlled, borderline hypotension, decrease metoprolol dose and continue to monitor. Hyperlipidemia, on Lipitor, continue to monitor. COPD, acute exacerbation, acute respiratory insufficiency, history of emphysema. Tobaccoism, patient has stopped smoking after her recent hospitalization and bypass surgery, encouraged to continue with smoking cessation Clinical Quality Measures DVT/VTE Risk/Contraindication: Risk Factor Score Per Nursin RFS Level Per Nursing on Admit: 4+=Very High Contraindications-Mechi: Other *list below* Other: PT HAS KWAME IN PLACE ON BILATERAL LOWER LEGS WITH RECENT VEIN HARVESTING AND SCD'S WOULD IMPAIR HEALING SUPA MCMANUS MD Aug 10, 2018 11:53
[2018-08-10 12:00] VITALS: BP 122/59
[2018-08-10 13:21] LABS: BILIRUBIN,URINE NEGATIVE (NEGATIVE); GLUCOSE, URINE (UA) NEGATIVE (NEGATIVE); KETONES,URINE NEGATIVE (NEGATIVE); LEUKOCYTE ESTERASE ,URINE NEGATIVE (NEGATIVE); NITRITE,URINE NEGATIVE (NEGATIVE); PH,URINE 6.5 (5-9); PROTEIN,URINE NEGATIVE (NEGATIVE); UROBILINOGEN,URINE NORMAL (NORMAL)
[2018-08-10 13:22] LABS: BACTERIA,URINE NEGATIVE /HPF; CLARITY,URINE CLEAR; COLOR,URINE YELLOW
--- NOTE | 2018-08-10 13:30 | NUR ---
CALLED PICC LINE NUMBER TO INQUIRE ABOUT TIME OF PICC LINE INSERTION. THEY ARE A NURSE SHORT AND REALLY BUSY. THEY WILL GET TO IT SOON THEY CAN.
[2018-08-10] MEDS: ALPRAZolam 0.25 MG (XANAX) TAB PO PRN ×2 (15:06→23:30)
[2018-08-10 16:50] VITALS: BP 143/64
--- NOTE | 2018-08-10 18:20 | NUR ---
CALLED X-RAY TO INQUIRE ABOUT CHEST XRAY READING OF PICC LINE PLACEMENT. THEY WILL CALL BACK WITH THE RESULTS
[2018-08-10] MEDS: MEROPENEM 500 MG in NS (IVPB) 100 ML IV SCH ×2 (18:28→21:00)
[2018-08-10 20:00] VITALS: BP 157/74
--- NOTE | 2018-08-10 20:53 | Diagnostic Imaging Report ---
INDICATION: Line placement. TECHNIQUE: Single view chest 5:12 PM. CORRELATION STUDY: 08/10/2018 FINDINGS: A left-sided central line has been placed, tip projects over the expected location of the SVC. Poststernotomy changes. Cardiac enlargement and vascular prominence persisting. Bilateral pleural effusion along with consolidation with atelectasis, infiltrate and/or edema about both lung bases, left greater than right, stable to perhaps minimally improved from earlier in the day. IMPRESSION: 1. Left-sided central line has been placed, tip projects over the expected location of the SVC. Dictated by: Dictated on workstation # [id number]
[2018-08-10] MEDS: ATORVASTATIN 20 MG (LIPITOR) TABLET PO SCH (21:46)
[2018-08-10] MEDS: SERTRALINE 50 MG (ZOLOFT) TABLET PO SCH (21:46)
[2018-08-11] VITALS: BP 97/53
[2018-08-11] MEDS: MEROPENEM 500 MG in NS (IVPB) 100 ML IV SCH ×4 (00:56→17:30)
[2018-08-11] MEDS: RT-ALBUTEROL/IPRATROPIUM 3 ML (DUONEB) VIAL INH SCH ×5 (01:58→21:21)
[2018-08-11] MEDS: oxyCODONE/APAP 5/325MG (PERCOCET 5) TABLET PO PRN ×4 (03:57→21:20)
[2018-08-11 04:00] VITALS: BP 128/59
[2018-08-11] MEDS: CATHETER FLUSH 10 ML SYR IV SCH ×3 (06:04→21:10)
[2018-08-11] MEDS: FUROSEMIDE 40 MG/4 ML INJ (LASIX) IVP SCH ×2 (06:04→17:22)
[2018-08-11 06:23] LABS: HEMOGLOBIN 8.8 G/DL (11.5-16.0); MEAN PLATELET VOLUME 8.5 FL (7.4-10.4); RED BLOOD COUNT 2.87 10^6/uL (4.35-5.85); RED CELL DISTRIBUTION WIDTH 16.6 % (10.0-14.5); WHITE BLOOD COUNT 19.3 10^3/uL (4.3-11.0)
[2018-08-11 06:49] LABS: ALANINE AMINOTRANSFERASE 10 U/L (0-55); ALBUMIN 3.4 GM/DL (3.2-4.5); ALKALINE PHOSPHATASE 19 U/L (40-136); BILIRUBIN,TOTAL 0.4 MG/DL (0.1-1.0); BUN/CREATININE RATIO 16; CALCIUM 8.8 MG/DL (8.5-10.1); CARBON DIOXIDE 30 MMOL/L (21-32); CHLORIDE 101 MMOL/L (98-107); CREATININE SERUM 0.67 MG/DL (0.60-1.30); GFR ESTIMATED > 60; GLUCOSE 100 MG/DL (70-105); MAGNESIUM 1.9 MG/DL (1.8-2.4); POTASSIUM 3.5 MMOL/L (3.6-5.0); SODIUM 141 MMOL/L (135-145); TOTAL PROTEIN 5.7 GM/DL (6.4-8.2)
[2018-08-11 08:00] VITALS: BP 112/73
--- NOTE | 2018-08-11 08:17 | Pulmonary Progress Note ---
Subjective Time Seen by a Provider: 08:16 Subjective/Events-last exam Still c/o SOB. NO fever. SHe is requiring 2 liters of oxygen Sepsis Event Evaluation Height, Weight, BMI Height: 5'2.00" Weight: 135lbs. 3.0oz. 61.199530xv; 24.9 BMI Method:Stated Focused Exam Lactate Level 08/10/18 12:22: Lactic Acid Level 1.20 Exam Exam Vital Signs Date Time Temp Pulse Resp B/P (MAP) Pulse Ox O2 Delivery O2 Flow Rate FiO2 08/11/18 07:41 88 96 28 08/11/18 07:29 96 Nasal Cannula 2.00 08/11/18 04:00 98.1 76 18 128/59 (82) 96 Nasal Cannula 3.00 08/11/18 01:59 92 Nasal Cannula 2.00 08/11/18 01:00 83 08/11/18 00:00 98.4 90 20 97/53 (68) 99 Nasal Cannula 3.00 08/10/18 21:47 94 Nasal Cannula 2.00 08/10/18 20:00 94 Nasal Cannula 2.00 08/10/18 20:00 98.8 96 18 157/74 (101) 99 Nasal Cannula 2.00 08/10/18 19:00 81 08/10/18 18:58 96 Nasal Cannula 2.00 08/10/18 16:50 98.6 85 20 143/64 (90) 96 Nasal Cannula 2.00 08/10/18 14:51 96 Nasal Cannula 2.00 08/10/18 13:00 89 08/10/18 12:00 99.1 77 18 122/59 (80) 98 Nasal Cannula 2.00 08/10/18 10:08 96 Nasal Cannula 2.00 I & O 08/11/18 07:00 Intake Total 1252 ml Output Total 1225 ml Balance 27 ml Height & Weight Height: 5'2.00" Weight: 135lbs. 3.0oz. 61.548271mi; 24.9 BMI Method:Stated General Appearance: WD/WN, Anxious HEENT: Normal ENT Inspection Neck: Full Range of Motion Respiratory: No Accessory Muscle Use, No Respiratory Distress, Decreased Breath Sounds Cardiovascular: Regular Rate, Rhythm Capillary Refill: Less Than 3 Seconds Gastrointestinal: soft, distended (MILDLY DISTENDED, BUT SOFT AND NON-TENDER) Extremity: Normal Capillary Refill, Normal Inspection, Normal Range of Motion, Non Tender, No Calf Tenderness, No Pedal Edema Neurologic/Psychiatric: Alert, Oriented x3, No Motor/Sensory Deficits, Normal Mood/Affect Skin: Normal Color, Warm/Dry Lymphatic: No Adenopathy Results Lab Laboratory Tests 08/09/18 08:40 08/10/18 05:55 08/11/18 06:15 Assessment/Plan Assessment/Plan Dyspnea with hypoxia -OXygen -SVNs -Monitor Left Pleural effusion probably secondary to CABG -Monitor Hypokalemia -replace COPD with tobacco use (recently stopped smoking) -Out patient work up -Monitor Leukocytosis -Monitor close -Repeat gatica cultures -Vanco Merrem CHF CAD with recent CABG 07/31 HTN TATE JACKSON DO Aug 11, 2018 08:17
[2018-08-11] MEDS ORDERED: KCL 10 MEQ TAB (MICRO K) PO ONE (09:00)
[2018-08-11] MEDS: ASPIRIN 81 MG CHEW (CHILDREN'S ASA) PO SCH (09:05)
[2018-08-11] MEDS: DOCUSATE SODIUM 100 MG (COLACE) CAP PO PRN (09:05)
[2018-08-11] MEDS: ENOXAPARIN 40 MG/0.4 ML (LOVENOX) SYR SC SCH (09:05)
[2018-08-11] MEDS: lisINopril 5 MG (PRINIVIL) TABLET PO SCH (09:05)
[2018-08-11] MEDS: meTOproloL SUCCINATE 50 MG (TOPROL XL) TAB PO SCH (09:06)
[2018-08-11] MEDS: VANCOMYCIN 1 GM/NS 250 ML IVPB IV SCH ×4 (09:07→21:10)
[2018-08-11] MEDS: NICOTINE PATCH REMOVAL TP SCH (09:07)
[2018-08-11] MEDS: NICOTINE 21 MG (NICODERM) PATCH TD SCH (09:07)
--- NOTE | 2018-08-11 09:31 | Cardiology Progress Note ---
Subjective Date Seen by Provider: Aug 11, 2018 Time Seen by Provider: 09:30 Subjective/Events-last exam patient is sitting up in bed, feeling better, breathing better, her chest pain is better. Review of Systems General: No Chills, No Night Sweats, No Fatigue, No Malaise, No Appetite, No Other HEENT: No Head Aches, No Visual Changes, No Eye Pain, No Ear Pain, No Dysphasia , No Sinus Congestion, No Post Nasal Drip, No Sore Throat, No Other Pulmonary: Dyspnea; No Cough, No Pleuritic Chest Pain, No Other Cardiovascular: Chest Pain; No: Palpitations, Orthopnea, Paroxysmal Noc. Dyspnea, Edema, Lt Headedness, Other Focused Exam Lactate Level 08/10/18 12:22: Lactic Acid Level 1.20 Objective-Cardiology Exam Last Set of Vital Signs Vital Signs 08/11/18 08/11/18 07:41 08:00 Temp 96.8 Pulse 85 Resp 18 B/P (MAP) 112/73 (86) Pulse Ox 94 O2 Delivery Nasal Cannula O2 Flow Rate 2.00 FiO2 28 Capillary Refill : Less Than 3 SecondsLess Than 3 Seconds I&O Intake and Output 08/11/18 00:00 Intake Total 1560 ml Output Total 1000 ml Balance 560 ml Intake Oral 1110 ml IV Total 450 ml Output Urine Total 1000 ml # Voids 4 General: Alert, Oriented X3, Cooperative, No Acute Distress HEENT: Atraumatic, PERRLA Neck: Supple, No JVD Lungs: Other (DECREASED BREATH SOUNDS FROM LEFT MID LUNG TO BASE, AND RIGHT BASE) Heart: Regular Rate, Normal S1, Normal S2, Other (S3/4) Abdomen: Normal Bowel Sounds, Soft, No Tenderness Extremities: No Clubbing, No Cyanosis, Other (MEDIALLY BILATERALLY - VEIN HARVEST SITES C/D/I - KWAME STILL IN PLACE) Skin: No Rashes, No Breakdown, Other (POST-OP CENTRAL CHEST, UPPER ABD - SURGICAL SITES HEALING WELL, BILATERAL MEDIAL LOWER LEGS TO MID-THIGHS - KWAME IN PLACE) Neuro: Normal Gait, Cranial Nerves 3-12 NL Psych/Mental Status: Mental Status NL, Mood NL Results Lab Laboratory Tests 08/11/18 06:15 A/P-Cardiology Admission Diagnosis Congestive heart failure Pneumonia Coronary artery disease Hypertension Assessment/Plan Congestive heart failure, echocardiogram showed preserved left ventricular systolic function, patient had pericardial rub probably secondary to the recent surgery. I will give additional dose of Lasix today in addition to her twice a day dose Hypokalemia, replace and monitor Pleural effusion secondary to CABG. Continue on diuretics and monitor. Coronary artery disease, status post myocardial infarction occurred early in July 2018, had CABG 4 done on July 30, 2018 in [place] and she was discharged and drove back to [place]. Troponin is negative. EKG showed diffuse T-wave inversion, probably her baseline. Continue to monitor, no changes at this time, restart aspirin Pneumonia, history of COPD, sepsis, managed by Dr. Ramirez Depression post bypass surgery, COPD, I'll start Zoloft and monitor Chest pain, musculoskeletal from the incision, appeared to be healing well, leg wound at the site of the vein harvest also is healing well. Continue to monitor Hypertension, controlled, borderline hypotension, decrease metoprolol dose and continue to monitor. Hyperlipidemia, on Lipitor, continue to monitor. COPD, acute exacerbation, acute respiratory insufficiency, history of emphysema. Tobaccoism, patient has stopped smoking after her recent hospitalization and bypass surgery, encouraged to continue with smoking cessation Clinical Quality Measures DVT/VTE Risk/Contraindication: Risk Factor Score Per Nursin RFS Level Per Nursing on Admit: 4+=Very High Contraindications-Mechi: Other *list below* Other: PT HAS KWAME IN PLACE ON BILATERAL LOWER LEGS WITH RECENT VEIN HARVESTING AND SCD'S WOULD IMPAIR HEALING SUPA MCMANUS MD Aug 11, 2018 09:31
[2018-08-11] MEDS ORDERED: FUROSEMIDE 40 MG/4 ML INJ (LASIX) IVP NR (09:53)
[2018-08-11] MEDS: POTASSIUM CL 10MEQ/50ML IVPB 50 ML IV SCH ×4 (10:13→12:11)
--- NOTE | 2018-08-11 11:08 | Diagnostic Imaging Report ---
INDICATION: Pulmonary edema. FINDINGS: 2 views of the chest shows normal heart size and vascularity. The lungs are clear other than basilar atelectasis. There are bilateral effusions, left greater than right. PICC line tip is in the SVC. IMPRESSION: The pleural effusions are similar to the prior study from 08/10/2018. Dictated by: Dictated on workstation # [id number]
[2018-08-11] MEDS: fentaNYL INJECTION 100 MCG/2 ML AMP IVP PRN ×2 (11:21→17:22)
[2018-08-11 12:00] VITALS: BP 111/69
--- NOTE | 2018-08-11 12:00 | Progress Note-Hospitalist ---
Subjective HPI/CC On Admission Date Seen by Provider: Aug 11, 2018 Time Seen by Provider: 11:00 CC: Dyspnea with wheezing HPI: This is a 57-year-old white female who was just discharged yesterday afternoon in preparation for [place] celebration and placed on adequate antibiotic coverage who presented back to the ER with worsened dyspnea and found to have florid pulmonary edema. Cardiology was consulted and patient was placed back on hospital acquired pneumonia due to recent CABG 07/28/18 and this current set back after DC on Cefdinir. Patient is improved overall and already asking when she can go home. Appreciate Dr Mckenzie's help. Subjective/Events-last exam Patient doing pretty well On wide spectrum antibiotics Leukocytosis of 19,000 Overall feels much better Overall significant decline status may need inpatient rehabilitation prior to discharge Cough is improved Chest pain is improved Review of Systems General: Fatigue Pulmonary: Cough Focused Exam Lactate Level 08/10/18 12:22: Lactic Acid Level 1.20 Objective Exam Vital Signs Vital Signs Date Time Temp Pulse Resp B/P (MAP) Pulse Ox O2 Delivery O2 Flow Rate FiO2 08/11/18 13:25 101 08/11/18 12:00 97.1 18 111/69 (83) 94 Nasal Cannula 2.00 08/11/18 07:41 28 Capillary Refill : Less Than 3 SecondsLess Than 3 Seconds General Appearance: No Apparent Distress, WD/WN, Chronically ill, Thin Respiratory: Chest Non Tender, No Accessory Muscle Use, No Respiratory Distress , Crackles, Decreased Breath Sounds Neurologic/Psychiatric: Alert, Oriented x3, No Motor/Sensory Deficits, Depressed Affect Results/Procedures Lab Laboratory Tests 08/11/18 06:15 Patient resulted labs reviewed. Assessment/Plan Assessment and Plan Assess & Plan/Chief Complaint Assessment: Resistant pneumonia Recent bypass surgery Depression Severe debility Former smoker Plan: Continue IV antibiotics Nebulizer treatments Cardiology is appreciated Diagnosis/Problems Diagnosis/Problems (1) Elevated brain natriuretic peptide (BNP) level Status: Acute (2) Pneumonia Status: Acute Qualifiers: Pneumonia type: due to unspecified organism Laterality: left Lung location: lower lobe of lung Qualified Codes: J18.1 - Lobar pneumonia, unspecified organism (3) Fluid overload Status: Acute Qualifiers: Hypervolemia type: unspecified Qualified Codes: E87.70 - Fluid overload, unspecified (4) Hx of CABG Status: Chronic (5) CAD (coronary artery disease) Status: Chronic Qualifiers: Coronary Disease-Associated Artery/Lesion type: [place] artery [place] vs. transplanted heart: [place] heart Associated angina: without angina Qualified Codes: I25.10 - Atherosclerotic heart disease of [place] coronary artery without angina pectoris (6) COPD (chronic obstructive pulmonary disease) Status: Chronic Qualifiers: COPD type: unspecified COPD Qualified Codes: J44.9 - Chronic obstructive pulmonary disease, unspecified (7) Leukocytosis Status: Acute Qualifiers: Leukocytosis type: leukemoid reaction Qualified Codes: D72.823 - Leukemoid reaction (8) Anemia Status: Acute Qualifiers: Anemia type: unspecified type Qualified Codes: D64.9 - Anemia, unspecified Clinical Quality Measures DVT/VTE Risk/Contraindication: Risk Factor Score Per Nursin RFS Level Per Nursing on Admit: 4+=Very High Contraindications-Mechi: Other *list below* Other: PT HAS KWAME IN PLACE ON BILATERAL LOWER LEGS WITH RECENT VEIN HARVESTING AND SCD'S WOULD IMPAIR HEALING SARABJIT EATON DO Aug 11, 2018 12:00
[2018-08-11 16:00] VITALS: BP 129/60
[2018-08-11] MEDS: CALCIUM CARBONATE 500 MG (TUMS) TAB.CHEW PO PRN (17:26)
[2018-08-11 20:00] VITALS: BP 138/65
[2018-08-11] MEDS: ONDANSETRON 4 MG/2 ML (SDV) Z0FRAN IVP PRN (20:04)
[2018-08-11] MEDS: ATORVASTATIN 20 MG (LIPITOR) TABLET PO SCH (21:09)
[2018-08-11] MEDS: SERTRALINE 50 MG (ZOLOFT) TABLET PO SCH (21:10)
[2018-08-12] VITALS: BP 103/48
[2018-08-12] MEDS: MEROPENEM 500 MG in NS (IVPB) 100 ML IV SCH ×5 (00:38→23:57)
[2018-08-12] MEDS: fentaNYL INJECTION 100 MCG/2 ML AMP IVP PRN ×5 (00:44→23:42)
[2018-08-12] MEDS: RT-ALBUTEROL/IPRATROPIUM 3 ML (DUONEB) VIAL INH SCH ×6 (02:17→22:03)
[2018-08-12] MEDS: oxyCODONE/APAP 5/325MG (PERCOCET 5) TABLET PO PRN ×3 (03:52→16:04)
[2018-08-12 04:00] VITALS: BP 134/61
[2018-08-12 04:34] LABS: HEMOGLOBIN 10.1 G/DL (11.5-16.0); MEAN PLATELET VOLUME 8.7 FL (7.4-10.4); RED BLOOD COUNT 3.31 10^6/uL (4.35-5.85); RED CELL DISTRIBUTION WIDTH 16.3 % (10.0-14.5); WHITE BLOOD COUNT 21.3 10^3/uL (4.3-11.0)
[2018-08-12 05:32] LABS: ALANINE AMINOTRANSFERASE 11 U/L (0-55); ALBUMIN 3.9 GM/DL (3.2-4.5); ALKALINE PHOSPHATASE 22 U/L (40-136); BILIRUBIN,TOTAL 0.5 MG/DL (0.1-1.0); BUN/CREATININE RATIO 14; CALCIUM 9.7 MG/DL (8.5-10.1); CARBON DIOXIDE 27 MMOL/L (21-32); CHLORIDE 100 MMOL/L (98-107); CREATININE SERUM 0.74 MG/DL (0.60-1.30); GFR ESTIMATED > 60; GLUCOSE 128 MG/DL (70-105); POTASSIUM 4.1 MMOL/L (3.6-5.0); SODIUM 141 MMOL/L (135-145); TOTAL PROTEIN 6.7 GM/DL (6.4-8.2)
[2018-08-12] MEDS: CATHETER FLUSH 10 ML SYR IV SCH ×3 (05:56→22:12)
[2018-08-12] MEDS: FUROSEMIDE 40 MG/4 ML INJ (LASIX) IVP SCH ×2 (05:56→16:04)
--- NOTE | 2018-08-12 06:23 | Pulmonary Progress Note ---
Subjective Time Seen by a Provider: 06:22 Subjective/Events-last exam PT feels about the same. Sepsis Event Evaluation Height, Weight, BMI Height: 5'2.00" Weight: 135lbs. 3.0oz. 61.453706yu; 24.9 BMI Method:Stated Focused Exam Lactate Level 08/10/18 12:22: Lactic Acid Level 1.20 Exam Exam Vital Signs Date Time Temp Pulse Resp B/P (MAP) Pulse Ox O2 Delivery O2 Flow Rate FiO2 08/12/18 02:17 95 Nasal Cannula 1.00 08/12/18 01:00 86 08/12/18 00:00 99.7 87 16 103/48 (66) 95 Nasal Cannula 2.00 08/11/18 21:21 94 Nasal Cannula 1.00 08/11/18 20:00 99.2 91 18 138/65 (89) 96 Nasal Cannula 2.00 08/11/18 20:00 Nasal Cannula 1.00 08/11/18 19:00 85 08/11/18 16:00 98.7 81 18 129/60 (83) 94 Nasal Cannula 2.00 08/11/18 13:25 101 08/11/18 12:00 97.1 85 18 111/69 (83) 94 Nasal Cannula 2.00 08/11/18 10:38 95 Nasal Cannula 1.00 08/11/18 08:00 96.8 85 18 112/73 (86) 94 Nasal Cannula 2.00 08/11/18 08:00 Nasal Cannula 2.00 08/11/18 07:41 88 96 28 08/11/18 07:35 89 08/11/18 07:29 96 Nasal Cannula 2.00 I & O 08/12/18 07:00 Intake Total 2420 ml Output Total 2100 ml Balance 320 ml Height & Weight Height: 5'2.00" Weight: 135lbs. 3.0oz. 61.568273yv; 24.9 BMI Method:Stated General Appearance: No Apparent Distress, WD/WN, Chronically ill, Thin HEENT: Normal ENT Inspection Neck: Full Range of Motion Respiratory: Chest Non Tender, No Accessory Muscle Use, No Respiratory Distress , Crackles, Decreased Breath Sounds Cardiovascular: Regular Rate, Rhythm Capillary Refill: Less Than 3 Seconds Gastrointestinal: soft, distended (MILDLY DISTENDED, BUT SOFT AND NON-TENDER) Extremity: Normal Capillary Refill, Normal Inspection, Normal Range of Motion, Non Tender, No Calf Tenderness, No Pedal Edema Neurologic/Psychiatric: Alert, Oriented x3, No Motor/Sensory Deficits, Depressed Affect Skin: Normal Color, Warm/Dry Lymphatic: No Adenopathy Results Lab Laboratory Tests 08/11/18 06:15 08/12/18 04:20 Assessment/Plan Assessment/Plan Dyspnea with hypoxia -OXygen -SVNs -Monitor Left Pleural effusion probably secondary to CABG -Monitor -Repeat CXR is pending Hypokalemia -replace COPD with tobacco use (recently stopped smoking) -Out patient work up -Monitor Leukocytosis -Monitor close -Repeat gatica cultures negative thus far -[facility] CHF CAD with recent CABG 07/31 HTN TATE JACKSON DO Aug 12, 2018 06:23
[2018-08-12 08:00] VITALS: BP 134/62
[2018-08-12] MEDS: ENOXAPARIN 40 MG/0.4 ML (LOVENOX) SYR SC SCH (08:12)
[2018-08-12] MEDS: ONDANSETRON 4 MG/2 ML (SDV) Z0FRAN IVP PRN ×3 (08:12→22:11)
[2018-08-12] MEDS: ASPIRIN 81 MG CHEW (CHILDREN'S ASA) PO SCH (08:12)
[2018-08-12] MEDS: NICOTINE 21 MG (NICODERM) PATCH TD SCH (08:12)
[2018-08-12] MEDS: meTOproloL SUCCINATE 50 MG (TOPROL XL) TAB PO SCH (08:12)
[2018-08-12] MEDS: LACTULOSE SYRUP 10GM/15ML (ENULOSE) 30ML UDC PO PRN ×2 (08:12→20:49)
[2018-08-12] MEDS: lisINopril 5 MG (PRINIVIL) TABLET PO SCH (08:13)
[2018-08-12] MEDS: NICOTINE PATCH REMOVAL TP SCH (08:13)
[2018-08-12] MEDS: DOCUSATE SODIUM 100 MG (COLACE) CAP PO PRN ×2 (09:59→20:49)
[2018-08-12] MEDS: BISACODYL 10 MG SUPP (DULCOLAX) PR PRN (09:59)
[2018-08-12] MEDS: VANCOMYCIN 1 GM/NS 250 ML IVPB IV SCH ×4 (10:01→22:11)
--- NOTE | 2018-08-12 10:12 | Diagnostic Imaging Report ---
INDICATION: Pneumonia. FINDINGS: Two views of the chest shows normal heart size and vascularity. There is left basilar atelectasis and effusion similar to the prior study from 08/11/2018. There is no pneumothorax. PICC line tip is in the SVC. IMPRESSION: Stable left-sided pleural effusion. Dictated by: Dictated on workstation # [id number]
--- NOTE | 2018-08-12 10:38 | Cardiology Progress Note ---
Subjective Date Seen by Provider: Aug 12, 2018 Time Seen by Provider: 10:37 Subjective/Events-last exam patient is laying down in bed, complaining of abdominal pain and constipation. Denied any chest pain Review of Systems General: No Chills, No Night Sweats, No Fatigue, No Malaise, No Appetite, No Other HEENT: No Head Aches, No Visual Changes, No Eye Pain, No Ear Pain, No Dysphasia , No Sinus Congestion, No Post Nasal Drip, No Sore Throat, No Other Pulmonary: No Dyspnea, No Cough, No Pleuritic Chest Pain, No Other Cardiovascular: No: Chest Pain, Palpitations, Orthopnea, Paroxysmal Noc. Dyspnea, Edema, Lt Headedness, Other Gastrointestinal: Constipation Focused Exam Lactate Level 08/10/18 12:22: Lactic Acid Level 1.20 Objective-Cardiology Exam Last Set of Vital Signs Vital Signs 08/11/18 08/12/18 08/12/18 08/12/18 07:41 04:00 07:02 07:14 Temp 99.8 Pulse 91 Resp 18 B/P (MAP) 134/61 (85) Pulse Ox 96 O2 Delivery Nasal Cannula O2 Flow Rate 1.00 FiO2 28 Capillary Refill : Less Than 3 SecondsLess Than 3 Seconds I&O Intake and Output 08/12/18 00:00 Intake Total 2642 ml Output Total 2325 ml Balance 317 ml Intake Oral 1992 ml IV Total 650 ml Output Urine Total 2325 ml General: Alert, Oriented X3, Cooperative, No Acute Distress HEENT: Atraumatic, PERRLA Neck: Supple, No JVD Lungs: Other (DECREASED BREATH SOUNDS FROM LEFT MID LUNG TO BASE, AND RIGHT BASE) Heart: Regular Rate, Normal S1, Normal S2, Other (S3/4) Abdomen: Normal Bowel Sounds, Soft, No Tenderness Extremities: No Clubbing, No Cyanosis, Other (MEDIALLY BILATERALLY - VEIN HARVEST SITES C/D/I - KWAME STILL IN PLACE) Skin: No Rashes, No Breakdown, Other (POST-OP CENTRAL CHEST, UPPER ABD - SURGICAL SITES HEALING WELL, BILATERAL MEDIAL LOWER LEGS TO MID-THIGHS - KWAME IN PLACE) Neuro: Normal Gait, Cranial Nerves 3-12 NL Psych/Mental Status: Mental Status NL, Mood NL Results Lab Laboratory Tests 08/12/18 04:20 A/P-Cardiology Admission Diagnosis Congestive heart failure Pneumonia Coronary artery disease Hypertension Assessment/Plan Congestive heart failure, echocardiogram showed preserved left ventricular systolic function, responding to Lasix. Continue to monitor next Abdominal pain, constipation, receiving antibiotic, elevated white count, I will evaluate stool for C. difficile Pleural effusion secondary to CABG. Continue on diuretics and monitor. Coronary artery disease, status post myocardial infarction occurred early in July 2018, had CABG 4 done on July 30, 2018 in [place] and she was discharged and drove back to [place]. Troponin is negative. EKG showed diffuse T-wave inversion, probably her baseline. Continue to monitor, no changes at this time, restart aspirin Pneumonia, history of COPD, sepsis, managed by Dr. Ramirez Depression post bypass surgery, COPD, I'll start Zoloft and monitor Chest pain, musculoskeletal from the incision, appeared to be healing well, leg wound at the site of the vein harvest also is healing well. Continue to monitor Hypertension, controlled, borderline hypotension, decrease metoprolol dose and continue to monitor. Hyperlipidemia, on Lipitor, continue to monitor. COPD, acute exacerbation, acute respiratory insufficiency, history of emphysema. Tobaccoism, patient has stopped smoking after her recent hospitalization and bypass surgery, encouraged to continue with smoking cessation Clinical Quality Measures DVT/VTE Risk/Contraindication: Risk Factor Score Per Nursin RFS Level Per Nursing on Admit: 4+=Very High Contraindications-Mechi: Other *list below* Other: PT HAS KWAME IN PLACE ON BILATERAL LOWER LEGS WITH RECENT VEIN HARVESTING AND SCD'S WOULD IMPAIR HEALING SUPA MCMANUS MD Aug 12, 2018 10:38
[2018-08-12 12:00] VITALS: BP 144/65
--- NOTE | 2018-08-12 12:25 | Diagnostic Imaging Report ---
INDICATION: Abdominal pain. FINDINGS: Supine views of the abdomen show fecal material throughout the colon, consistent with moderate constipation. The small bowel is normal. There is no mass or calculus. There is no bony abnormality. IMPRESSION: Constipation. Dictated by: Dictated on workstation # [id number]
--- NOTE | 2018-08-12 12:50 | Progress Note-Hospitalist ---
Subjective HPI/CC On Admission Date Seen by Provider: Aug 12, 2018 Time Seen by Provider: 11:30 CC: Dyspnea with wheezing HPI: This is a 57-year-old white female who was just discharged yesterday afternoon in preparation for [place] celebration and placed on adequate antibiotic coverage who presented back to the ER with worsened dyspnea and found to have florid pulmonary edema. Cardiology was consulted and patient was placed back on hospital acquired pneumonia due to recent CABG 07/28/18 and this current set back after DC on Cefdinir. Patient is improved overall and already asking when she can go home. Appreciate Dr Mckenzie's help. Subjective/Events-last exam Patient having significant abdominal pain mostly mid epigastric to mid quadrants Spoke with Dr. Mckenzie C. difficile was ordered but she is constipated and is not having loose stools so unsure of the results with that but will monitor closely since she is on broad-spectrum antibiotics for the last 10 days Abdominal x-ray was ordered and will consult Dr. Joseph and await his recommendations Patient declined to take bowel medication that I recommended for the last several days so I counseled her on the need to adhere to recommendations to prevent narcotic bowel and obstruction and possible perforation Lung sounds are about the same with coarseness in the lower lobes Appreciate pulmonology Appreciate general surgery Reviewed meds and labs and images Review of Systems General: Fatigue Pulmonary: Cough Gastrointestinal: Abdominal Pain, Constipation Focused Exam Lactate Level 08/10/18 12:22: Lactic Acid Level 1.20 Objective Exam Vital Signs Vital Signs Date Time Temp Pulse Resp B/P (MAP) Pulse Ox O2 Delivery O2 Flow Rate FiO2 08/12/18 18:20 89 Room Air 08/12/18 16:10 99.1 89 24 150/67 (94) 1.00 08/11/18 07:41 28 Capillary Refill : Less Than 3 SecondsLess Than 3 Seconds General Appearance: No Apparent Distress, WD/WN, Chronically ill, Thin Respiratory: Chest Non Tender, No Accessory Muscle Use, No Respiratory Distress , Crackles, Decreased Breath Sounds, Wheezing Cardiovascular: Regular Rate, Rhythm, No Edema, No Gallop, No JVD, No Murmur, Normal Peripheral Pulses Gastrointestinal: Soft, Abnormal Bowel Sounds, Tenderness Neurologic/Psychiatric: Alert, Oriented x3, No Motor/Sensory Deficits, Normal Mood/Affect Results/Procedures Lab Laboratory Tests 12/30/18 04:20 Patient resulted labs reviewed. Assessment/Plan Assessment and Plan Assess & Plan/Chief Complaint Assessment: Resistant pneumonia Recent bypass surgery Depression Former smoker Abdominal pain Constipation Noncompliant with bowel regimen ordered for the last several days Severe debility likely require swing bed versus inpatient rehab versus nursing facility Plan: Continue IV antibiotics Nebulizer treatments Cardiology is appreciated Aggressive bowel regimen Monitor for constipation resolution Check labs in morning Monitor chest x-ray Inpatient rehab versus [facility] placement Diagnosis/Problems Diagnosis/Problems (1) Elevated brain natriuretic peptide (BNP) level Status: Acute (2) Pneumonia Status: Acute Qualifiers: Pneumonia type: due to unspecified organism Laterality: left Lung location: lower lobe of lung Qualified Codes: J18.1 - Lobar pneumonia, unspecified organism (3) Fluid overload Status: Acute Qualifiers: Hypervolemia type: unspecified Qualified Codes: E87.70 - Fluid overload, unspecified (4) Hx of CABG Status: Chronic (5) CAD (coronary artery disease) Status: Chronic Qualifiers: Coronary Disease-Associated Artery/Lesion type: [place] artery [place] vs. transplanted heart: [place] heart Associated angina: without angina Qualified Codes: I25.10 - Atherosclerotic heart disease of [place] coronary artery without angina pectoris (6) COPD (chronic obstructive pulmonary disease) Status: Chronic Qualifiers: COPD type: unspecified COPD Qualified Codes: J44.9 - Chronic obstructive pulmonary disease, unspecified (7) Leukocytosis Status: Acute Qualifiers: Leukocytosis type: leukemoid reaction Qualified Codes: D72.823 - Leukemoid reaction (8) Anemia Status: Acute Qualifiers: Anemia type: unspecified type Qualified Codes: D64.9 - Anemia, unspecified (9) Constipation Status: Acute Qualifiers: Constipation type: drug induced constipation Qualified Codes: K59.03 - Drug induced constipation (10) Abdominal pain Status: Acute Qualifiers: Abdominal location: generalized Qualified Codes: R10.84 - Generalized abdominal pain (11) Debility Status: Acute Clinical Quality Measures DVT/VTE Risk/Contraindication: Risk Factor Score Per Nursin RFS Level Per Nursing on Admit: 4+=Very High Contraindications-Mechi: Other *list below* Other: PT HAS KWAME IN PLACE ON BILATERAL LOWER LEGS WITH RECENT VEIN HARVESTING AND SCD'S WOULD IMPAIR HEALING SARABJIT EATON DO Aug 12, 2018 12:50
[2018-08-12 16:10] VITALS: BP 150/67
[2018-08-12] MEDS: CALCIUM CARBONATE 500 MG (TUMS) TAB.CHEW PO PRN (16:24)
[2018-08-12] MEDS ORDERED: FLEET ENEMA ADULT 1 EA BTL PR PRN (17:00)
--- NOTE | 2018-08-12 17:21 | CONSULTATION REPORT ---
DATE OF SERVICE: 08/12/2018 ATTENDING PRIMARY CARE PHYSICIAN: Dr. Fonseca. ADMITTING PHYSICIAN: Dr. Radford. 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 She developed chest pain and shortness of breath, underwent cardiac catheterization, was found to have multivessel coronary artery disease occlusion requiring a coronary artery bypass grafting x4 vessels on 07/29/2018. She states that she was in the hospital for recovery for about one week and then was doing well, ambulating well with adequate pain control and breathing well. She was then driven back home to this region. She states that she was here for a short time, but then developed some shortness of breath and was found to have congestive heart failure as well as pulmonary edema and was medically treated. She also was found to have pneumonia, was treated with antibiotics. She improved; however, after discharge approximately 24 hours, she did have recurrence of shortness of breath and again found to have pulmonary edema and continued pneumonia. Since readmission, she has been on diuretics as well as antibiotics and has slowly improved. She states that about 2 days ago, she did develop crampy abdominal pain that moved in different quadrants of the abdomen. She says today's pain was a lot worse and crampy in nature. An abdominal x-ray was performed which did show a significant amount of stool in the right side of the colon with gaseous distention of redundant transverse colon and more stool in the sigmoid colon as well as rectum. We feel that the majority of her abdominal pain is secondary to constipation from significant amount of opioids causing slowed gastrointestinal transit motility. The last bowel movement was greater than 4 days ago and was also well-formed. PAST MEDICAL HISTORY: Coronary artery disease, history of myocardial infarction, hypercholesterolemia, hypertension, degenerative joint disease, psoriasis. PAST SURGICAL HISTORY: Coronary artery bypass grafting x4 vessels on 07/29/2018, total hysterectomy, orthopedic procedure. ALLERGIES: No known drug allergies. MEDICATIONS: Amiodarone 200 mg daily, aspirin 81 mg daily, atorvastatin 20 mg daily, cephalexin 250 mg q.6 hours, Plavix 75 mg daily, famotidine 20 mg daily, furosemide 20 mg daily, melatonin 5 mg daily, metoprolol 50 mg daily, nicotine patch daily, oxycodone 5/325 q.4 hours p.r.n., potassium 10 mEq daily. SOCIAL HISTORY: Previous smoker, quit since her surgery, 40 pack years. Negative alcohol. FAMILY HISTORY: Noncontributory. REVIEW OF SYSTEMS: Well-nourished female currently in no acute distress; however, does have this crampy abdominal pain on an intermittent basis. She does report exertional shortness of breath as well as coughing with some sputum production. No chest pain, palpitations or diaphoresis. No nausea or vomiting with her last bowel movement four days ago, which was hard in consistency that did require straining. No red blood per rectum, no dark tarry stools. No fever or chills, no recent inadvertent weight loss. All other review of systems negative. PHYSICAL EXAMINATION: VITAL SIGNS: Temperature 99.1, blood pressure 150/67, pulse 89, respirations 24, pulse ox 93% on 1 liter nasal cannula. CHEST: Scattered rales, rhonchi bilaterally. HEART: With decreased breath sounds at the lung bases. HEART: Regular, no murmurs. EXTREMITIES: No lower extremity edema, negative Homans sign with previous vein harvest wound healing well. HEENT: No scleral icterus. NECK: No cervical lymphadenopathy. ABDOMEN: Soft, nondistended. There is mild discomfort, which is more diffuse. There are no focal areas of tenderness and no peritoneal signs. SKIN: Warm, dry. LABORATORY DATA: WBC 21.3, hemoglobin 10.1, hematocrit 33, platelets 781. Liver function enzymes are normal. BUN 10, creatinine 0.74. ASSESSMENT AND PLAN: A 57-year-old female with acute on chronic constipation from her previous significant surgery, which encompassed open heart surgery and a 4-vessel bypass and has been immobilized as well as been on opioid pain medication for some amount of time causing a slow gastrointestinal motility and constipation. We will start her on MiraLax 17 grams b.i.d. as well as an enema due to the finding of stool within the rectal vault with Fleet Enema. We will continue to monitor her progress. Job ID: [id number] DocumentID: [id number] Dictated Date: 08/12/2018 16:59:03 Blender/Braze Applicator Date: 08/12/2018 17:20:37 Dictated By: MD NOEL BRAXTON
[2018-08-12 19:20] VITALS: BP 134/65
[2018-08-12] MEDS: POLYETHYLENE GLYCOL 17 GM (MIRALAX) PACK PO SCH (20:48)
[2018-08-12] MEDS: SERTRALINE 50 MG (ZOLOFT) TABLET PO SCH (20:49)
[2018-08-12] MEDS: ATORVASTATIN 20 MG (LIPITOR) TABLET PO SCH (20:49)
[2018-08-13] VITALS: BP 132/60
[2018-08-13] MEDS: RT-ALBUTEROL/IPRATROPIUM 3 ML (DUONEB) VIAL INH SCH ×6 (01:32→22:57)
[2018-08-13] MEDS: ALPRAZolam 0.25 MG (XANAX) TAB PO PRN ×3 (01:51→22:55)
[2018-08-13 04:00] VITALS: BP 158/72
[2018-08-13] MEDS: fentaNYL INJECTION 100 MCG/2 ML AMP IVP PRN ×3 (05:23→18:43)
[2018-08-13] MEDS: ONDANSETRON 4 MG/2 ML (SDV) Z0FRAN IVP PRN ×2 (05:25→14:20)
--- NOTE | 2018-08-13 06:17 | Pulmonary Progress Note ---
Subjective Time Seen by a Provider: 07:27 Subjective/Events-last exam Pt complains of nausea. SOB is stable Sepsis Event Evaluation Height, Weight, BMI Height: 5'2.00" Weight: 135lbs. 7.0oz. 61.101595le; 24.9 BMI Method:Stated Focused Exam Lactate Level 08/10/18 12:22: Lactic Acid Level 1.20 Exam Exam Vital Signs Date Time Temp Pulse Resp B/P (MAP) Pulse Ox O2 Delivery O2 Flow Rate FiO2 08/13/18 04:00 98.7 93 18 158/72 (100) 94 Room Air 08/13/18 01:00 86 08/13/18 00:00 98.7 96 18 132/60 (84) 94 Room Air 08/12/18 20:00 Nasal Cannula 1.00 08/12/18 19:20 99.4 98 20 134/65 (88) 96 Nasal Cannula 1.00 08/12/18 19:08 99 08/12/18 18:20 89 Room Air 08/12/18 16:10 99.1 89 24 150/67 (94) 93 Nasal Cannula 1.00 08/12/18 13:26 100 08/12/18 12:00 98.7 87 18 144/65 (91) 95 Room Air 08/12/18 10:59 85 Room Air 08/12/18 08:00 98.9 88 18 134/62 (86) 91 Room Air 08/12/18 08:00 Nasal Cannula 1.00 08/12/18 07:14 96 Nasal Cannula 1.00 08/12/18 07:02 91 I & O 08/13/18 07:00 Intake Total 1430 ml Balance 1430 ml Height & Weight Height: 5'2.00" Weight: 135lbs. 7.0oz. 61.938082hz; 24.9 BMI Method:Stated General Appearance: No Apparent Distress, WD/WN, Chronically ill, Thin HEENT: Normal ENT Inspection Neck: Full Range of Motion Respiratory: Chest Non Tender, No Accessory Muscle Use, No Respiratory Distress , Crackles, Decreased Breath Sounds Cardiovascular: Regular Rate, Rhythm Capillary Refill: Less Than 3 Seconds Gastrointestinal: soft, distended (MILDLY DISTENDED, BUT SOFT AND NON-TENDER) Extremity: Normal Capillary Refill, Normal Inspection, Normal Range of Motion, Non Tender, No Calf Tenderness, No Pedal Edema Neurologic/Psychiatric: Alert, Oriented x3, No Motor/Sensory Deficits, Depressed Affect Skin: Normal Color, Warm/Dry Lymphatic: No Adenopathy Results Lab Laboratory Tests 08/12/18 04:20 Assessment/Plan Assessment/Plan Dyspnea with hypoxia -OXygen -SVNs -Monitor Left Pleural effusion probably secondary to CABG -Monitor COPD with tobacco use (recently stopped smoking) -Out patient work up -Monitor Leukocytosis -Monitor close -Repeat gatica cultures negative thus far -[facility] CHF CAD with recent CABG 07/31 HTN TATE JACKSON DO Aug 13, 2018 06:17
[2018-08-13] MEDS: MEROPENEM 500 MG in NS (IVPB) 100 ML IV SCH ×3 (06:40→18:43)
[2018-08-13] MEDS: FUROSEMIDE 40 MG/4 ML INJ (LASIX) IVP SCH ×2 (06:40→17:17)
[2018-08-13] MEDS: CATHETER FLUSH 10 ML SYR IV SCH ×3 (06:41→22:37)
[2018-08-13 06:59] LABS: HEMOGLOBIN 10.4 G/DL (11.5-16.0); MEAN PLATELET VOLUME 8.6 FL (7.4-10.4); RED BLOOD COUNT 3.31 10^6/uL (4.35-5.85); RED CELL DISTRIBUTION WIDTH 16.3 % (10.0-14.5); WHITE BLOOD COUNT 28.6 10^3/uL (4.3-11.0)
[2018-08-13 07:14] LABS: ALBUMIN 3.8 GM/DL (3.2-4.5); BILIRUBIN,TOTAL 0.7 MG/DL (0.1-1.0); CALCIUM 9.5 MG/DL (8.5-10.1); CREATININE SERUM 1.28 MG/DL (0.60-1.30); POTASSIUM 3.4 MMOL/L (3.6-5.0); TOTAL PROTEIN 6.7 GM/DL (6.4-8.2)
[2018-08-13 08:00] VITALS: BP 143/77
[2018-08-13] MEDS: lisINopril 5 MG (PRINIVIL) TABLET PO SCH (08:18)
[2018-08-13] MEDS: ASPIRIN 81 MG CHEW (CHILDREN'S ASA) PO SCH ×2 (08:18→08:48)
[2018-08-13] MEDS: meTOproloL SUCCINATE 50 MG (TOPROL XL) TAB PO SCH (08:19)
[2018-08-13] MEDS: ENOXAPARIN 40 MG/0.4 ML (LOVENOX) SYR SC SCH (08:19)
[2018-08-13] MEDS: POLYETHYLENE GLYCOL 17 GM (MIRALAX) PACK PO SCH ×2 (08:19→21:31)
[2018-08-13] MEDS: NICOTINE 21 MG (NICODERM) PATCH TD SCH (08:19)
[2018-08-13] MEDS: oxyCODONE/APAP 5/325MG (PERCOCET 5) TABLET PO PRN ×4 (08:19→22:37)
[2018-08-13] MEDS: NICOTINE PATCH REMOVAL TP SCH (08:26)
--- NOTE | 2018-08-13 08:58 | Cardiology Progress Note ---
Subjective Date Seen by Provider: Aug 13, 2018 Time Seen by Provider: 08:55 Subjective/Events-last exam Patient sitting up in bed, complaining of diffuse abdominal discomfort. Denies any chest pain. C/o some dyspnea. Review of Systems General: No Night Sweats; Fatigue; No Malaise HEENT: No Visual Changes, No Dysphasia, No Sore Throat Pulmonary: Dyspnea; No Cough Cardiovascular: No: Chest Pain, Palpitations, Orthopnea, Edema Gastrointestinal: Nausea, Abdominal Pain, Constipation; No: Vomiting, Diarrhea Genitourinary: No Dysuria, No Frequency Musculoskeletal: No: neck pain, back pain Neurological: Weakness; No: Numbness, Change in speech, Confusion Focused Exam Lactate Level 08/10/18 12:22: Lactic Acid Level 1.20 Objective-Cardiology Exam Last Set of Vital Signs Vital Signs 08/11/18 08/13/18 08/13/18 08/13/18 07:41 04:00 06:15 07:01 Temp 98.7 Pulse 95 Resp 18 B/P (MAP) 158/72 (100) Pulse Ox 94 O2 Delivery Nasal Cannula O2 Flow Rate 1.00 FiO2 28 Capillary Refill : Less Than 3 SecondsLess Than 3 Seconds I&O Intake and Output 08/13/18 00:00 Intake Total 2480 ml Balance 2480 ml Intake Oral 1780 ml IV Total 700 ml # Voids 7 # Emeses 1 General: Alert, Oriented X3, Cooperative, No Acute Distress HEENT: Atraumatic, PERRLA Neck: Supple, No JVD Lungs: Other (DECREASED BREATH SOUNDS FROM LEFT MID LUNG TO BASE, AND RIGHT BASE) Heart: Regular Rate, Normal S1, Normal S2, Other (S3/4) Abdomen: Other (decreased bs, diffusely ttp.) Extremities: No Clubbing, No Cyanosis, Other (MEDIALLY BILATERALLY - VEIN HARVEST SITES C/D/I - KWAME STILL IN PLACE) Skin: No Rashes, No Breakdown, Other (POST-OP CENTRAL CHEST, UPPER ABD - SURGICAL SITES HEALING WELL, BILATERAL MEDIAL LOWER LEGS TO MID-THIGHS - KWAME IN PLACE) Neuro: Normal Gait, Cranial Nerves 3-12 NL Psych/Mental Status: Mental Status NL, Mood NL Results Lab Laboratory Tests 08/13/18 06:50 A/P-Cardiology Admission Diagnosis Congestive heart failure Pneumonia Coronary artery disease Hypertension Assessment/Plan Congestive heart failure, echocardiogram showed preserved left ventricular systolic function, responding to Lasix. Continue to monitor. Abdominal pain, constipation, receiving antibiotic, elevated white count, Dr. Joseph consulted. Pleural effusion secondary to CABG. Continue on diuretics and monitor. Coronary artery disease, status post myocardial infarction occurred early in July 2018, had CABG 4 done on July 30, 2018 in [place] and she was discharged and drove back to [place]. Troponin is negative. EKG showed diffuse T-wave inversion, probably her baseline. Continue to monitor, no changes at this time, restart aspirin Pneumonia, history of COPD, sepsis, managed by Dr. Ramirez Depression post bypass surgery, COPD,start Zoloft and monitor Chest pain, musculoskeletal from the incision, appeared to be healing well, leg wound at the site of the vein harvest also is healing well. Continue to monitor Hypertension, controlled, continue to monitor BP/HR. Hyperlipidemia, on Lipitor, continue to monitor. COPD, acute exacerbation, acute respiratory insufficiency, history of emphysema. Tobaccoism, patient has stopped smoking after her recent hospitalization and bypass surgery, encouraged to continue with smoking cessation Clinical Quality Measures DVT/VTE Risk/Contraindication: Risk Factor Score Per Nursin RFS Level Per Nursing on Admit: 4+=Very High Contraindications-Mechi: Other *list below* Other: PT HAS KWAME IN PLACE ON BILATERAL LOWER LEGS WITH RECENT VEIN HARVESTING AND SCD'S WOULD IMPAIR HEALING NILDA YOU Aug 13, 2018 08:58
--- NOTE | 2018-08-13 09:32 | Cardiology Progress Note ---
Subjective Date Seen by Provider: Aug 13, 2018 Time Seen by Provider: 09:31 Subjective/Events-last exam patient is laying down in bed, still having significant constipation and abdominal pain, no bowel movement. Review of Systems General: No Chills, No Night Sweats, No Fatigue, No Malaise, No Appetite, No Other HEENT: No Head Aches, No Visual Changes, No Eye Pain, No Ear Pain, No Dysphasia , No Sinus Congestion, No Post Nasal Drip, No Sore Throat, No Other Pulmonary: No Dyspnea, No Cough, No Pleuritic Chest Pain, No Other Cardiovascular: Chest Pain; No: Palpitations, Orthopnea, Paroxysmal Noc. Dyspnea, Edema, Lt Headedness, Other Gastrointestinal: Constipation Focused Exam Lactate Level 08/10/18 12:22: Lactic Acid Level 1.20 Objective-Cardiology Exam Last Set of Vital Signs Vital Signs 08/11/18 08/13/18 08/13/18 08/13/18 07:41 04:00 06:15 07:01 Temp 98.7 Pulse 95 Resp 18 B/P (MAP) 158/72 (100) Pulse Ox 94 O2 Delivery Nasal Cannula O2 Flow Rate 1.00 FiO2 28 Capillary Refill : Less Than 3 SecondsLess Than 3 Seconds I&O Intake and Output 08/13/18 00:00 Intake Total 2480 ml Balance 2480 ml Intake Oral 1780 ml IV Total 700 ml # Voids 7 # Emeses 1 General: Alert, Oriented X3, Cooperative, No Acute Distress HEENT: Atraumatic, PERRLA Neck: Supple, No JVD Lungs: Other (DECREASED BREATH SOUNDS FROM LEFT MID LUNG TO BASE, AND RIGHT BASE) Heart: Regular Rate, Normal S1, Normal S2, Other (S3/4) Abdomen: Other (decreased bs, diffusely ttp.) Extremities: No Clubbing, No Cyanosis, Other (MEDIALLY BILATERALLY - VEIN HARVEST SITES C/D/I - KWAME STILL IN PLACE) Skin: No Rashes, No Breakdown, Other (POST-OP CENTRAL CHEST, UPPER ABD - SURGICAL SITES HEALING WELL, BILATERAL MEDIAL LOWER LEGS TO MID-THIGHS - KWAME IN PLACE) Neuro: Normal Gait, Cranial Nerves 3-12 NL Psych/Mental Status: Mental Status NL, Mood NL Results Lab Laboratory Tests 08/13/18 06:50 A/P-Cardiology Admission Diagnosis Congestive heart failure Pneumonia Coronary artery disease Hypertension Assessment/Plan Congestive heart failure, echocardiogram showed preserved left ventricular systolic function, responding to Lasix. Continue to monitor. Abdominal pain, constipation, receiving antibiotic, elevated white count, Dr. Joseph consulted. Pleural effusion secondary to CABG. Continue on diuretics and monitor. Coronary artery disease, status post myocardial infarction occurred early in July 2018, had CABG 4 done on July 30, 2018 in [place] and she was discharged and drove back to [place]. Troponin is negative. EKG showed diffuse T-wave inversion, probably her baseline. Continue to monitor, no changes at this time, restart aspirin Pneumonia, history of COPD, sepsis, managed by Dr. Ramirez Depression post bypass surgery, COPD,start Zoloft and monitor Chest pain, musculoskeletal from the incision, appeared to be healing well, leg wound at the site of the vein harvest also is healing well. Continue to monitor Hypertension, controlled, continue to monitor BP/HR. Hyperlipidemia, on Lipitor, continue to monitor. COPD, acute exacerbation, acute respiratory insufficiency, history of emphysema. Tobaccoism, patient has stopped smoking after her recent hospitalization and bypass surgery, encouraged to continue with smoking cessation Clinical Quality Measures DVT/VTE Risk/Contraindication: Risk Factor Score Per Nursin RFS Level Per Nursing on Admit: 4+=Very High Contraindications-Mechi: Other *list below* Other: PT HAS KWAME IN PLACE ON BILATERAL LOWER LEGS WITH RECENT VEIN HARVESTING AND SCD'S WOULD IMPAIR HEALING SUPA MCMANUS MD Aug 13, 2018 09:32
[2018-08-13 10:06] LABS: AMYLASE 18 U/L (25-125); LIPASE 4 U/L (8-78)
[2018-08-13] MEDS: VANCOMYCIN 1 GM/NS 250 ML IVPB IV SCH ×4 (10:24→22:42)
--- NOTE | 2018-08-13 11:09 | Progress Note (SOAP) ---
Subjective Date Seen by a Provider: Aug 13, 2018 Time Seen by a Provider: 10:50 Subjective/Events-last exam Patient seen with Dr. Joseph. Patient reports doing ok and abdominal pain improving. Just finished enema and patient report was able to hold it for a short time, however mostly watery BM with no stool. Patient reports was having N/V last night but so far this AM has been able to keep liquids down. No Fever/ chills. Ambulating some but reports a little weak. Focused Exam Lactate Level 08/10/18 12:22: Lactic Acid Level 1.20 Objective Exam Vital Signs Date Time Temp Pulse Resp B/P (MAP) Pulse Ox O2 Delivery O2 Flow Rate FiO2 08/13/18 09:31 95 Nasal Cannula 08/13/18 08:00 99.6 101 16 143/77 (99) 95 Room Air 08/13/18 07:01 95 08/13/18 06:15 94 Nasal Cannula 1.00 08/13/18 04:00 98.7 93 18 158/72 (100) 94 Room Air 08/13/18 01:00 86 08/13/18 00:00 98.7 96 18 132/60 (84) 94 Room Air 08/12/18 20:00 Nasal Cannula 1.00 08/12/18 19:20 99.4 98 20 134/65 (88) 96 Nasal Cannula 1.00 08/12/18 19:08 99 08/12/18 18:20 89 Room Air 08/12/18 16:10 99.1 89 24 150/67 (94) 93 Nasal Cannula 1.00 08/12/18 13:26 100 08/12/18 12:00 98.7 87 18 144/65 (91) 95 Room Air I & O 08/13/18 07:00 Intake Total 1830 ml Balance 1830 ml Capillary Refill : Less Than 3 SecondsLess Than 3 Seconds General Appearance: No Apparent Distress, WD/WN Neck: Full Range of Motion, Normal Inspection, Non Tender, Supple Respiratory: No Accessory Muscle Use, No Respiratory Distress Cardiovascular: Regular Rate, Rhythm, No Edema Gastrointestinal: normal bowel sounds, non tender, distended (mild distention) Extremity: Normal Capillary Refill, Normal Range of Motion, Other (Left lower extremity incision C/D/I) Neurologic/Psychiatric: Alert, Oriented x3 Skin: Normal Color, Warm/Dry, Other (Mid chest incision C/D/I) Results Lab Laboratory Tests 08/13/18 06:50: White Blood Count 28.6H, Red Blood Count 3.31L, Hemoglobin 10.4L, Hematocrit 32L , Mean Corpuscular Volume 98, Mean Corpuscular Hemoglobin 31, Mean Corpuscular Hemoglobin Concent 32, Red Cell Distribution Width 16.3H, Platelet Count 862H, Mean Platelet Volume 8.6, Sodium Level 140, Potassium Level 3.4L, Chloride Level 100, Carbon Dioxide Level 26, Anion Gap 14, Blood Urea Nitrogen 20H, Creatinine 1.28, Estimat Glomerular Filtration Rate 43, BUN/Creatinine Ratio 16 , Glucose Level 145H, Calcium Level 9.5, Corrected Calcium 9.7, Total Bilirubin 0.7, Aspartate Amino Transf (AST/SGOT) 17, Alanine Aminotransferase (ALT/SGPT) 10, Alkaline Phosphatase 25L, Total Protein 6.7, Albumin 3.8, Amylase Level 18L , Lipase 4L Microbiology 08/10/18 Blood Culture - Preliminary, Resulted No growth 08/11/18 Gram Stain - Final, Resulted 08/11/18 Sputum Culture - Preliminary, Resulted Culture In Progress Assessment/Plan Assessment/Plan Assess & Plan/Chief Complaint A 57 year old female with constipation who is S/P 4 vessel bypass and taking pain medication. Tolerating liquids at this time. Encourage ambulating. continue with miralax and stool softners. Will proceed with Dulcolax suppository. Clinical Quality Measures DVT/VTE Risk/Contraindication: Risk Factor Score Per Nursin RFS Level Per Nursing on Admit: 4+=Very High Contraindications-Mechi: Other *list below* Other: PT HAS KWAME IN PLACE ON BILATERAL LOWER LEGS WITH RECENT VEIN HARVESTING AND SCD'S WOULD IMPAIR HEALING CORINNE FLOYD SHOVEL LOGGER Aug 13, 2018 11:09
[2018-08-13] MEDS: BISACODYL 10 MG SUPP (DULCOLAX) PR PRN (11:17)
--- NOTE | 2018-08-13 11:54 | Diagnostic Imaging Report ---
INDICATION: Abdominal pain. EXAMINATION: KUB at 11:52 AM. FINDINGS: There is an air/fluid level in the transverse colon. The bowel gas pattern is normal otherwise. There are no pathologic masses or fluid collections. IMPRESSION: No acute abnormalities in the abdomen. Dictated by: Dictated on workstation # [id number]
--- NOTE | 2018-08-13 11:55 | Progress Note-Hospitalist ---
Subjective HPI/CC On Admission Date Seen by Provider: Aug 13, 2018 Time Seen by Provider: 11:00 CC: Dyspnea with wheezing HPI: This is a 57-year-old white female who was just discharged yesterday afternoon in preparation for [place] celebration and placed on adequate antibiotic coverage who presented back to the ER with worsened dyspnea and found to have florid pulmonary edema. Cardiology was consulted and patient was placed back on hospital acquired pneumonia due to recent CABG 07/28/18 and this current set back after DC on Cefdinir. Patient is improved overall and already asking when she can go home. Appreciate Dr Mckenzie's help. Subjective/Events-last exam Still no bowel movement Appreciate Dr. Joseph consultation Bowel regimen continues Overall breathing much better Lungs are completely clear today Maintain on broad-spectrum antibiotics due to resistant organism pneumonia source Review of Systems Gastrointestinal: Constipation Focused Exam Lactate Level Objective Exam Vital Signs Vital Signs Date Time Temp Pulse Resp B/P (MAP) Pulse Ox O2 Delivery O2 Flow Rate FiO2 08/13/18 09:31 95 Nasal Cannula 08/13/18 08:00 99.6 101 16 143/77 (99) 08/13/18 08:00 1.00 08/11/18 07:41 28 Capillary Refill : Less Than 3 SecondsLess Than 3 Seconds General Appearance: No Apparent Distress, WD/WN, Chronically ill Respiratory: Chest Non Tender, Lungs Clear, Normal Breath Sounds, No Accessory Muscle Use, No Respiratory Distress Cardiovascular: Regular Rate, Rhythm, No Edema, No Gallop, No JVD, No Murmur, Normal Peripheral Pulses Neurologic/Psychiatric: Alert, Oriented x3, No Motor/Sensory Deficits, Normal Mood/Affect Results/Procedures Lab Laboratory Tests 08/13/18 06:50 Patient resulted labs reviewed. Assessment/Plan Assessment and Plan Assess & Plan/Chief Complaint Assessment: Resistant pneumonia Recent bypass surgery Depression Former smoker Abdominal pain Constipation Noncompliant with bowel regimen ordered for the last several days Severe debility likely require swing bed versus inpatient rehab versus nursing facility Plan: Continue IV antibiotics Nebulizer treatments Cardiology is appreciated Aggressive bowel regimen Monitor for constipation resolution Check labs in morning Monitor chest x-ray Inpatient rehab versus correction placement Diagnosis/Problems Diagnosis/Problems (1) Elevated brain natriuretic peptide (BNP) level Status: Acute (2) Pneumonia Status: Acute Qualifiers: Pneumonia type: due to unspecified organism Laterality: left Lung location: lower lobe of lung Qualified Codes: J18.1 - Lobar pneumonia, unspecified organism (3) Fluid overload Status: Acute Qualifiers: Hypervolemia type: unspecified Qualified Codes: E87.70 - Fluid overload, unspecified (4) Hx of CABG Status: Chronic (5) CAD (coronary artery disease) Status: Chronic Qualifiers: Coronary Disease-Associated Artery/Lesion type: [place] artery [place] vs. transplanted heart: [place] heart Associated angina: without angina Qualified Codes: I25.10 - Atherosclerotic heart disease of [place] coronary artery without angina pectoris (6) COPD (chronic obstructive pulmonary disease) Status: Chronic Qualifiers: COPD type: unspecified COPD Qualified Codes: J44.9 - Chronic obstructive pulmonary disease, unspecified (7) Leukocytosis Status: Acute Qualifiers: Leukocytosis type: leukemoid reaction Qualified Codes: D72.823 - Leukemoid reaction (8) Anemia Status: Acute Qualifiers: Anemia type: unspecified type Qualified Codes: D64.9 - Anemia, unspecified (9) Constipation Status: Acute Qualifiers: Constipation type: drug induced constipation Qualified Codes: K59.03 - Drug induced constipation (10) Abdominal pain Status: Acute Qualifiers: Abdominal location: generalized Qualified Codes: R10.84 - Generalized abdominal pain (11) Debility Status: Acute Clinical Quality Measures DVT/VTE Risk/Contraindication: Risk Factor Score Per Nursin RFS Level Per Nursing on Admit: 4+=Very High Contraindications-Mechi: Other *list below* Other: PT HAS KWAME IN PLACE ON BILATERAL LOWER LEGS WITH RECENT VEIN HARVESTING AND SCD'S WOULD IMPAIR HEALING SARABJIT EATON DO Aug 13, 2018 11:55
--- NOTE | 2018-08-13 13:00 | Diagnostic Imaging Report ---
EXAMINATION: PA and lateral chest at 1150 hours. INDICATION: Respiratory distress. FINDINGS: When compared to the prior exam of 08/12/2018, there does not appear to have been any significant change. There is still atelectasis/infiltrate and fluid involving the left lung base with a small amount of right lower lobe atelectasis/infiltrate and fluid as well. The upper lungs remain clear. The heart is stable. The mediastinum is not widened. The osseous structures are intact. The left-sided PICC line and the sternotomy wires and surgical clips noted previously are again evident and no different. IMPRESSION: Stable chest. There has been no adverse change since the prior exam. Dictated by: Dictated on workstation # [id number]
--- NOTE | 2018-08-13 15:18 | NUR ---
Pastoral Care Visit.
[2018-08-13 16:05] VITALS: BP 106/58
[2018-08-13] MEDS: ATORVASTATIN 20 MG (LIPITOR) TABLET PO SCH (21:30)
[2018-08-13] MEDS: SERTRALINE 50 MG (ZOLOFT) TABLET PO SCH (21:30)
[2018-08-13] MEDS: DOCUSATE SODIUM 100 MG (COLACE) CAP PO PRN (22:55)
[2018-08-13] MEDS: LACTULOSE SYRUP 10GM/15ML (ENULOSE) 30ML UDC PO PRN (22:55)
[2018-08-14] VITALS: BP 134/74
[2018-08-14] MEDS: MEROPENEM 500 MG in NS (IVPB) 100 ML IV SCH ×4 (00:05→20:45)
[2018-08-14] MEDS: RT-ALBUTEROL/IPRATROPIUM 3 ML (DUONEB) VIAL INH SCH ×6 (02:13→21:46)
[2018-08-14 04:00] VITALS: BP 105/49
[2018-08-14] MEDS: fentaNYL INJECTION 100 MCG/2 ML AMP IVP PRN ×3 (04:13→18:15)
[2018-08-14] MEDS: CATHETER FLUSH 10 ML SYR IV SCH ×3 (05:34→20:46)
[2018-08-14] MEDS: FUROSEMIDE 40 MG/4 ML INJ (LASIX) IVP SCH ×2 (06:12→17:15)
[2018-08-14 07:32] VITALS: BP 105/49
--- NOTE | 2018-08-14 07:55 | Pulmonary Progress Note ---
Subjective Time Seen by a Provider: 08:31 Subjective/Events-last exam Pt is feeling better. No complications noted. No nausea/vomiting last night. Sepsis Event Evaluation Height, Weight, BMI Height: 5'2.00" Weight: 135lbs. 7.0oz. 61.077083ps; 24.9 BMI Method:Stated Exam Exam Vital Signs Date Time Temp Pulse Resp B/P (MAP) Pulse Ox O2 Delivery O2 Flow Rate FiO2 08/14/18 07:35 93 Nasal Cannula 1.00 08/14/18 07:32 89 95 24 08/14/18 04:00 98.4 89 20 105/49 (67) 95 Nasal Cannula 1.00 08/14/18 02:14 94 Nasal Cannula 1.00 08/14/18 00:00 98.7 84 20 134/74 (94) 96 Nasal Cannula 1.00 08/13/18 22:58 93 Nasal Cannula 1.00 08/13/18 20:00 Nasal Cannula 1.00 08/13/18 18:46 93 Nasal Cannula 1.00 08/13/18 16:05 98.8 87 18 106/58 (74) 94 Room Air 08/13/18 14:02 96 Nasal Cannula 1.00 08/13/18 13:25 84 08/13/18 09:31 95 Nasal Cannula 08/13/18 08:00 99.6 101 16 143/77 (99) 95 Room Air 08/13/18 08:00 Nasal Cannula 1.00 I & O 08/14/18 07:00 Intake Total 1290 ml Balance 1290 ml Height & Weight Height: 5'2.00" Weight: 135lbs. 7.0oz. 61.100567za; 24.9 BMI Method:Stated General Appearance: No Apparent Distress, WD/WN, Chronically ill, Thin HEENT: Normal ENT Inspection Neck: Full Range of Motion Respiratory: Chest Non Tender, No Accessory Muscle Use, No Respiratory Distress , Crackles, Decreased Breath Sounds Cardiovascular: Regular Rate, Rhythm Capillary Refill: Less Than 3 Seconds Gastrointestinal: soft, distended (MILDLY DISTENDED, BUT SOFT AND NON-TENDER) Extremity: Normal Capillary Refill, Normal Inspection, Normal Range of Motion, Non Tender, No Calf Tenderness, No Pedal Edema Neurologic/Psychiatric: Alert, Oriented x3, No Motor/Sensory Deficits, Depressed Affect Skin: Normal Color, Warm/Dry Lymphatic: No Adenopathy Results Lab Laboratory Tests 08/13/18 06:50 Assessment/Plan Assessment/Plan Dyspnea with hypoxia -OXygen -SVNs -Monitor Left Pleural effusion probably secondary to CABG -Monitor COPD with tobacco use (recently stopped smoking) -Out patient work up -Monitor Leukocytosis -Monitor close -Repeat gatica cultures negative thus far neg -[facility] CHF CAD with recent CABG 07/31 HTN TATE JACKSON DO Aug 14, 2018 07:55
[2018-08-14] MEDS: oxyCODONE/APAP 5/325MG (PERCOCET 5) TABLET PO PRN ×3 (08:02→20:45)
[2018-08-14] MEDS: lisINopril 5 MG (PRINIVIL) TABLET PO SCH (08:42)
[2018-08-14] MEDS: DOCUSATE SODIUM 100 MG (COLACE) CAP PO PRN (08:42)
[2018-08-14] MEDS: NICOTINE 21 MG (NICODERM) PATCH TD SCH (08:43)
[2018-08-14] MEDS: meTOproloL SUCCINATE 50 MG (TOPROL XL) TAB PO SCH (08:43)
[2018-08-14] MEDS: ASPIRIN 81 MG CHEW (CHILDREN'S ASA) PO SCH (08:45)
[2018-08-14] MEDS: NICOTINE PATCH REMOVAL TP SCH (08:47)
[2018-08-14] MEDS: POLYETHYLENE GLYCOL 17 GM (MIRALAX) PACK PO SCH ×2 (08:48→20:44)
[2018-08-14 08:50] VITALS: BP 102/56
--- NOTE | 2018-08-14 09:49 | Cardiology Progress Note ---
Subjective Date Seen by Provider: Aug 14, 2018 Time Seen by Provider: 09:44 Subjective/Events-last exam Patient is in bed, feeling better, had bowel movement last night Review of Systems General: No Chills, No Night Sweats, No Fatigue, No Malaise, No Appetite, No Other HEENT: No Head Aches, No Visual Changes, No Eye Pain, No Ear Pain, No Dysphasia , No Sinus Congestion, No Post Nasal Drip, No Sore Throat, No Other Pulmonary: No Dyspnea, No Cough, No Pleuritic Chest Pain, No Other Cardiovascular: No: Chest Pain, Palpitations, Orthopnea, Paroxysmal Noc. Dyspnea, Edema, Lt Headedness, Other Objective-Cardiology Exam Last Set of Vital Signs Vital Signs 08/14/18 08/14/18 07:32 08:50 Temp 99.1 Pulse 88 Resp 18 B/P (MAP) 102/56 (71) Pulse Ox 96 O2 Delivery Nasal Cannula O2 Flow Rate 1.00 FiO2 24 Capillary Refill : Less Than 3 SecondsLess Than 3 Seconds I&O Intake and Output 08/14/18 00:00 Intake Total 1040 ml Balance 1040 ml Intake Oral 590 ml IV Total 450 ml # Voids 8 # Bowel Movements 1 General: Alert, Oriented X3, Cooperative, No Acute Distress HEENT: Atraumatic, PERRLA Neck: Supple, No JVD Lungs: Other (DECREASED BREATH SOUNDS FROM LEFT MID LUNG TO BASE, AND RIGHT BASE) Heart: Regular Rate, Normal S1, Normal S2, Other (S3/4) Abdomen: Normal Bowel Sounds, Other (decreased bs, diffusely ttp.) Extremities: No Clubbing, No Cyanosis, Other (MEDIALLY BILATERALLY - VEIN HARVEST SITES C/D/I - KWAME STILL IN PLACE) Skin: No Rashes, No Breakdown, Other (POST-OP CENTRAL CHEST, UPPER ABD - SURGICAL SITES HEALING WELL, BILATERAL MEDIAL LOWER LEGS TO MID-THIGHS - KWAME IN PLACE) Neuro: Normal Gait, Cranial Nerves 3-12 NL Psych/Mental Status: Mental Status NL, Mood NL A/P-Cardiology Admission Diagnosis Congestive heart failure Pneumonia Coronary artery disease Hypertension Assessment/Plan Congestive heart failure, echocardiogram showed preserved left ventricular systolic function, responding to Lasix. Continue to monitor. Abdominal pain, constipation, had a BM yesterday and feeling better Pleural effusion secondary to CABG. Continue on diuretics and monitor. Coronary artery disease, status post myocardial infarction occurred early in July 2018, had CABG 4 done on July 30, 2018 in [place] and she was discharged and drove back to [place]. Troponin is negative. EKG showed diffuse T-wave inversion, probably her baseline. Continue to monitor, no changes at this time, restart aspirin Pneumonia, history of COPD, sepsis, improving, continue to monitor Depression post bypass surgery, COPD,start Zoloft and monitor Chest pain, musculoskeletal from the incision, appeared to be healing well, leg wound at the site of the vein harvest also is healing well. Continue to monitor Hypertension, controlled, continue to monitor BP/HR. Hyperlipidemia, on Lipitor, continue to monitor. COPD, acute exacerbation, acute respiratory insufficiency, history of emphysema. Tobaccoism, patient has stopped smoking after her recent hospitalization and bypass surgery, encouraged to continue with smoking cessation Clinical Quality Measures DVT/VTE Risk/Contraindication: Risk Factor Score Per Nursin RFS Level Per Nursing on Admit: 4+=Very High Contraindications-Mechi: Other *list below* Other: PT HAS KWAME IN PLACE ON BILATERAL LOWER LEGS WITH RECENT VEIN HARVESTING AND SCD'S WOULD IMPAIR HEALING SUPA MCMANUS MD Aug 14, 2018 09:49
--- NOTE | 2018-08-14 10:12 | Progress Note (SOAP) ---
Subjective Date Seen by a Provider: Aug 14, 2018 Time Seen by a Provider: 09:45 Subjective/Events-last exam Patient seen with Dr. Joseph. Patient reports doing well. Did have 2 small BMs this AM. Tolerating liquids. No nausea/vomiting. No fever/chills. Does report diffuse abdominal tenderness. Ambulating some but reports still weak. Objective Exam Vital Signs Date Time Temp Pulse Resp B/P (MAP) Pulse Ox O2 Delivery O2 Flow Rate FiO2 08/14/18 08:50 99.1 88 18 102/56 (71) 96 Nasal Cannula 1.00 08/14/18 08:00 Nasal Cannula 1.00 08/14/18 07:35 93 Nasal Cannula 1.00 08/14/18 07:32 89 95 24 08/14/18 04:00 98.4 89 20 105/49 (67) 95 Nasal Cannula 1.00 08/14/18 02:14 94 Nasal Cannula 1.00 08/14/18 00:00 98.7 84 20 134/74 (94) 96 Nasal Cannula 1.00 08/13/18 22:58 93 Nasal Cannula 1.00 08/13/18 20:00 Nasal Cannula 1.00 08/13/18 18:46 93 Nasal Cannula 1.00 08/13/18 16:05 98.8 87 18 106/58 (74) 94 Room Air 08/13/18 14:02 96 Nasal Cannula 1.00 08/13/18 13:25 84 I & O 08/14/18 07:00 Intake Total 1290 ml Balance 1290 ml Capillary Refill : Less Than 3 SecondsLess Than 3 Seconds General Appearance: No Apparent Distress, WD/WN Neck: Full Range of Motion, Normal Inspection, Non Tender, Supple Respiratory: No Accessory Muscle Use, No Respiratory Distress Cardiovascular: Regular Rate, Rhythm, No Edema Gastrointestinal: normal bowel sounds, distended (Mild distension), tenderness (diffuse) Extremity: Normal Capillary Refill, Normal Inspection, Normal Range of Motion Neurologic/Psychiatric: Alert, Oriented x3 Skin: Normal Color, Warm/Dry Results Lab Microbiology 08/10/18 Blood Culture - Preliminary, Resulted No growth 08/11/18 Gram Stain - Final, Complete 08/11/18 Sputum Culture - Final, Complete Loretta glabrata Loretta dubliniensis Assessment/Plan Assessment/Plan Assess & Plan/Chief Complaint A 57 year old female with constipation who is S/P 4 vessel bypass and taking pain medication. Tolerating liquids at this time. Encourage ambulating. continue with miralax and stool softners. Will proceed with Dulcolax suppository PRN. Had 2 small BMs this AM. Continue bowel regimen. Clinical Quality Measures DVT/VTE Risk/Contraindication: Risk Factor Score Per Nursin RFS Level Per Nursing on Admit: 4+=Very High Contraindications-Mechi: Other *list below* Other: PT HAS KWAME IN PLACE ON BILATERAL LOWER LEGS WITH RECENT VEIN HARVESTING AND SCD'S WOULD IMPAIR HEALING CORINNE FLOYD FACING GRINDER Aug 14, 2018 10:12
[2018-08-14] MEDS: VANCOMYCIN 1 GM/NS 250 ML IVPB IV SCH ×2 (10:34)
[2018-08-14] MEDS: ENOXAPARIN 40 MG/0.4 ML (LOVENOX) SYR SC SCH (10:36)
--- NOTE | 2018-08-14 10:57 | Diagnostic Imaging Report ---
PATIENT HISTORY: Followup pneumonia.. TECHNIQUE: 2 views of the chest. COMPARISON: 08/13/2018 FINDINGS: There are airspace opacities in the left lower lobe with a small left pleural effusion. Aeration appears stable since the prior study. The left PICC line tip projects over the mid SVC. Sternotomy wires are noted. There is aortic atherosclerosis. There is calcific tendinitis in the left shoulder. No pneumothorax is seen. IMPRESSION: 1. Stable airspace opacity in the left lower lobe with small left pleural effusion. Aeration appears unchanged. Dictated by: Dictated on workstation # [id number]
[2018-08-14 11:28] LABS: BASOPHILS # (AUTO) 0.1 10^3/uL (0.0-0.1); BASOPHILS % (AUTO) 0 % (0-10); EOSINOPHILS # (AUTO) 0.4 10^3/uL (0.0-0.3); EOSINOPHILS % (AUTO) 2 % (0-10); HEMATOCRIT 28 % (35-52); HEMOGLOBIN 8.8 G/DL (11.5-16.0); LYMPHOCYTES # (AUTO) 2.7 X 10^3 (1.0-4.0); LYMPHOCYTES % (AUTO) 11 % (12-44); MEAN CORPUSCULAR HEMOGLOBIN 31 PG (25-34); MEAN CORPUSCULAR HGB CONC 31 G/DL (32-36); MEAN CORPUSCULAR VOLUME 99 FL (80-99); MEAN PLATELET VOLUME 8.8 FL (7.4-10.4); MONOCYTES # (AUTO) 1.6 X 10^3 (0.0-1.0); MONOCYTES % (AUTO) 6 % (0-12); NEUTROPHILS # (AUTO) 20.7 X 10^3 (1.8-7.8); NEUTROPHILS % (AUTO) 82 % (42-75); PLATELET COUNT 685 10^3/uL (130-400); RED BLOOD COUNT 2.85 10^6/uL (4.35-5.85); RED CELL DISTRIBUTION WIDTH 15.7 % (10.0-14.5); WHITE BLOOD COUNT 25.4 10^3/uL (4.3-11.0)
[2018-08-14 11:44] LABS: ALBUMIN 3.4 GM/DL (3.2-4.5); BILIRUBIN,TOTAL 0.5 MG/DL (0.1-1.0); CALCIUM 8.8 MG/DL (8.5-10.1); CREATININE SERUM 1.69 MG/DL (0.60-1.30); POTASSIUM 3.2 MMOL/L (3.6-5.0)
[2018-08-14 11:58] LABS: BAND NEUTROPHILS 3 %; LYMPHOCYTES % (MANUAL) 10 %
[2018-08-14 11:59] LABS: EOSINOPHILS % (MANUAL) 1 %; HYPERSEGMENTED NEUT MARKED; MONOCYTES % (MANUAL) 6 %; NEUTROPHILS % (MANUAL) 80 %
[2018-08-14 12:00] LABS: RBC MORPH NORMAL
[2018-08-14 12:01] LABS: TOXIC GRANULATION/VACUOLAZATIO 2+
--- NOTE | 2018-08-14 12:20 | Progress Note-Hospitalist ---
Subjective HPI/CC On Admission Date Seen by Provider: Aug 14, 2018 Time Seen by Provider: 10:30 CC: Dyspnea with wheezing HPI: This is a 57-year-old white female who was just discharged yesterday afternoon in preparation for [place] celebration and placed on adequate antibiotic coverage who presented back to the ER with worsened dyspnea and found to have florid pulmonary edema. Cardiology was consulted and patient was placed back on hospital acquired pneumonia due to recent CABG 07/28/18 and this current set back after DC on Cefdinir. Patient is improved overall and already asking when she can go home. Appreciate Dr Mckenzie's help. 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 Review of Systems General: Fatigue Objective Exam Vital Signs Vital Signs Date Time Temp Pulse Resp B/P (MAP) Pulse Ox O2 Delivery O2 Flow Rate FiO2 08/14/18 10:35 94 Nasal Cannula 1.00 08/14/18 08:50 99.1 88 18 102/56 (71) 08/14/18 07:32 24 Capillary Refill : Less Than 3 SecondsLess Than 3 Seconds General Appearance: No Apparent Distress, WD/WN, Chronically ill Respiratory: Chest Non Tender, No Accessory Muscle Use, No Respiratory Distress , Crackles, Decreased Breath Sounds Cardiovascular: Regular Rate, Rhythm, No Edema, No Gallop, No JVD, No Murmur, Normal Peripheral Pulses Neurologic/Psychiatric: Alert, Oriented x3, No Motor/Sensory Deficits, Normal Mood/Affect Results/Procedures Lab Laboratory Tests 08/14/18 11:20 Patient resulted labs reviewed. Assessment/Plan Assessment and Plan Assess & Plan/Chief Complaint Assessment: Resistant pneumonia Recent bypass surgery Depression Former smoker Abdominal pain Constipation improved Noncompliant with bowel regimen ordered for the last several days before general surgery consultation Severe debility likely require swing bed versus inpatient rehab versus nursing facility Plan: Continue IV antibiotics Nebulizer treatments Cardiology is appreciated Aggressive bowel regimen Monitor for constipation resolution Check labs in morning Monitor chest x-ray Inpatient rehab versus senior living placement Diagnosis/Problems Diagnosis/Problems (1) Elevated brain natriuretic peptide (BNP) level Status: Acute (2) Pneumonia Status: Acute Qualifiers: Pneumonia type: due to unspecified organism Laterality: left Lung location: lower lobe of lung Qualified Codes: J18.1 - Lobar pneumonia, unspecified organism (3) Fluid overload Status: Acute Qualifiers: Hypervolemia type: unspecified Qualified Codes: E87.70 - Fluid overload, unspecified (4) Hx of CABG Status: Chronic (5) CAD (coronary artery disease) Status: Chronic Qualifiers: Coronary Disease-Associated Artery/Lesion type: [place] artery [place] vs. transplanted heart: [place] heart Associated angina: without angina Qualified Codes: I25.10 - Atherosclerotic heart disease of [place] coronary artery without angina pectoris (6) COPD (chronic obstructive pulmonary disease) Status: Chronic Qualifiers: COPD type: unspecified COPD Qualified Codes: J44.9 - Chronic obstructive pulmonary disease, unspecified (7) Leukocytosis Status: Acute Qualifiers: Leukocytosis type: leukemoid reaction Qualified Codes: D72.823 - Leukemoid reaction (8) Anemia Status: Acute Qualifiers: Anemia type: unspecified type Qualified Codes: D64.9 - Anemia, unspecified (9) Constipation Status: Acute Qualifiers: Constipation type: drug induced constipation Qualified Codes: K59.03 - Drug induced constipation (10) Abdominal pain Status: Acute Qualifiers: Abdominal location: generalized Qualified Codes: R10.84 - Generalized abdominal pain (11) Debility Status: Acute Clinical Quality Measures DVT/VTE Risk/Contraindication: Risk Factor Score Per Nursin RFS Level Per Nursing on Admit: 4+=Very High Contraindications-Mechi: Other *list below* Other: PT HAS KWAME IN PLACE ON BILATERAL LOWER LEGS WITH RECENT VEIN HARVESTING AND SCD'S WOULD IMPAIR HEALING SARABJIT EATON DO Aug 14, 2018 12:20
[2018-08-14 15:35] VITALS: BP 119/58
[2018-08-14] MEDS: SERTRALINE 50 MG (ZOLOFT) TABLET PO SCH (20:44)
[2018-08-14] MEDS: ATORVASTATIN 20 MG (LIPITOR) TABLET PO SCH (20:44)
[2018-08-14] MEDS: ALPRAZolam 0.25 MG (XANAX) TAB PO PRN (20:45)
[2018-08-15] VITALS: BP 87/50
[2018-08-15] MEDS: RT-ALBUTEROL/IPRATROPIUM 3 ML (DUONEB) VIAL INH SCH ×5 (01:58→20:41)
[2018-08-15 04:00] VITALS: BP 106/64
[2018-08-15] MEDS: oxyCODONE/APAP 5/325MG (PERCOCET 5) TABLET PO PRN ×3 (05:03→21:01)
[2018-08-15 05:20] LABS: BASOPHILS # (AUTO) 0.1 10^3/uL (0.0-0.1); BASOPHILS % (AUTO) 0 % (0-10); EOSINOPHILS # (AUTO) 1.1 10^3/uL (0.0-0.3); EOSINOPHILS % (AUTO) 6 % (0-10); HEMATOCRIT 27 % (35-52); HEMOGLOBIN 8.6 G/DL (11.5-16.0); LYMPHOCYTES # (AUTO) 3.4 X 10^3 (1.0-4.0); LYMPHOCYTES % (AUTO) 20 % (12-44); MEAN CORPUSCULAR HEMOGLOBIN 31 PG (25-34); MEAN CORPUSCULAR HGB CONC 32 G/DL (32-36); MEAN CORPUSCULAR VOLUME 99 FL (80-99); MEAN PLATELET VOLUME 8.6 FL (7.4-10.4); MONOCYTES # (AUTO) 1.7 X 10^3 (0.0-1.0); MONOCYTES % (AUTO) 10 % (0-12); NEUTROPHILS # (AUTO) 10.8 X 10^3 (1.8-7.8); NEUTROPHILS % (AUTO) 63 % (42-75); PLATELET COUNT 674 10^3/uL (130-400); RED BLOOD COUNT 2.76 10^6/uL (4.35-5.85); RED CELL DISTRIBUTION WIDTH 15.8 % (10.0-14.5)
[2018-08-15 05:40] LABS: ALBUMIN 3.4 GM/DL (3.2-4.5); BILIRUBIN,TOTAL 0.4 MG/DL (0.1-1.0); CREATININE SERUM 1.64 MG/DL (0.60-1.30); POTASSIUM 3.1 MMOL/L (3.6-5.0); TOTAL PROTEIN 5.9 GM/DL (6.4-8.2)
[2018-08-15] MEDS: CATHETER FLUSH 10 ML SYR IV SCH ×3 (05:56→21:02)
[2018-08-15] MEDS: MEROPENEM 500 MG in NS (IVPB) 100 ML IV SCH ×3 (05:56→21:02)
[2018-08-15] MEDS: FUROSEMIDE 40 MG/4 ML INJ (LASIX) IVP SCH (05:56)
[2018-08-15 08:00] VITALS: BP 96/51
[2018-08-15] MEDS: ENOXAPARIN 40 MG/0.4 ML (LOVENOX) SYR SC SCH (08:38)
[2018-08-15] MEDS: POLYETHYLENE GLYCOL 17 GM (MIRALAX) PACK PO SCH ×2 (08:38→21:03)
[2018-08-15] MEDS: NICOTINE 21 MG (NICODERM) PATCH TD SCH (08:38)
[2018-08-15] MEDS: ASPIRIN 81 MG CHEW (CHILDREN'S ASA) PO SCH (08:39)
[2018-08-15] MEDS: lisINopril 5 MG (PRINIVIL) TABLET PO SCH (08:39)
[2018-08-15] MEDS: fentaNYL INJECTION 100 MCG/2 ML AMP IVP PRN ×2 (08:39→17:57)
[2018-08-15] MEDS: meTOproloL SUCCINATE 50 MG (TOPROL XL) TAB PO SCH (08:39)
[2018-08-15] MEDS: NICOTINE PATCH REMOVAL TP SCH (08:39)
--- NOTE | 2018-08-15 08:43 | Diagnostic Imaging Report ---
EXAMINATION: PA and lateral chest at 0837 hours. INDICATION: Respiratory distress. FINDINGS: When compared to the prior exam of 08/14/2018, there does not appear to have been any significant change. The heart is stable in size. The left lung base remains obscured by atelectasis/infiltrate and fluid. There is still a small amount of atelectasis/infiltrate and fluid in the right lung base as well. The upper lungs are clear. The mediastinum is not widened. The osseous structures are intact. The sternotomy wires and left-sided PICC line noted previously are again evident. IMPRESSION: Stable chest. There has been no adverse change since the prior exam. Dictated by: Dictated on workstation # [id number]
--- NOTE | 2018-08-15 09:33 | Progress Note ---
Objective Exam Last Set of Vital Signs Vital Signs Date Time Temp Pulse Resp B/P (MAP) Pulse Ox O2 Delivery O2 Flow Rate FiO2 08/15/18 08:00 Nasal Cannula 1.50 08/15/18 04:00 99.3 81 16 106/64 (78) 94 08/14/18 07:32 24 Capillary Refill : Less Than 3 SecondsLess Than 3 Seconds I&O Intake and Output 08/15/18 00:00 Intake Total 1820 ml Balance 1820 ml Intake Oral 1270 ml IV Total 550 ml # Voids 7 # Bowel Movements 4 General: Alert, Oriented X3, Cooperative, No Acute Distress HEENT: Atraumatic, PERRLA Neck: Supple, No JVD Lungs: Other (DECREASED BREATH SOUNDS FROM LEFT MID LUNG TO BASE, AND RIGHT BASE) Heart: Regular Rate, Normal S1, Normal S2, Other (S3/4) Abdomen: Normal Bowel Sounds, Other (decreased bs, diffusely ttp.) Extremities: No Clubbing, No Cyanosis, Other (MEDIALLY BILATERALLY - VEIN HARVEST SITES C/D/I - KWAME STILL IN PLACE) Skin: No Rashes, No Breakdown, Other (POST-OP CENTRAL CHEST, UPPER ABD - SURGICAL SITES HEALING WELL, BILATERAL MEDIAL LOWER LEGS TO MID-THIGHS - KWAME IN PLACE) Neuro: Normal Gait, Cranial Nerves 3-12 NL Psych/Mental Status: Mental Status NL, Mood NL Results Lab Laboratory Tests 08/14/18 11:20: White Blood Count 25.4H, Red Blood Count 2.85L, Hemoglobin 8.8L, Hematocrit 28L , Mean Corpuscular Volume 99, Mean Corpuscular Hemoglobin 31, Mean Corpuscular Hemoglobin Concent 31L, Red Cell Distribution Width 15.7H, Platelet Count 685H, Mean Platelet Volume 8.8, Neutrophils (%) (Auto) 82H, Lymphocytes (%) (Auto) 11L , Monocytes (%) (Auto) 6, Eosinophils (%) (Auto) 2, Basophils (%) (Auto) 0, Neutrophils # (Auto) 20.7H, Lymphocytes # (Auto) 2.7, Monocytes # (Auto) 1.6H, Eosinophils # (Auto) 0.4H, Basophils # (Auto) 0.1, Neutrophils % (Manual) 80, Lymphocytes % (Manual) 10, Monocytes % (Manual) 6, Eosinophils % (Manual) 1, Band Neutrophils 3, Hypersegmented Neutrophils MARKED, Toxic Granulation 2+, Dohle Bodies MODERATE, Blood Morphology Comment NORMAL, Sodium Level 138, Potassium Level 3.2L, Chloride Level 98, Carbon Dioxide Level 27, Anion Gap 13, Blood Urea Nitrogen 25H, Creatinine 1.69H, Estimat Glomerular Filtration Rate 31 , BUN/Creatinine Ratio 15, Glucose Level 119H, Calcium Level 8.8, Corrected Calcium 9.3, Total Bilirubin 0.5, Aspartate Amino Transf (AST/SGOT) 16, Alanine Aminotransferase (ALT/SGPT) 9, Alkaline Phosphatase 22L, Total Protein 6.0L, Albumin 3.4 08/15/18 05:15: White Blood Count 17.0H, Red Blood Count 2.76L, Hemoglobin 8.6L, Hematocrit 27L , Mean Corpuscular Volume 99, Mean Corpuscular Hemoglobin 31, Mean Corpuscular Hemoglobin Concent 32, Red Cell Distribution Width 15.8H, Platelet Count 674H, Mean Platelet Volume 8.6, Neutrophils (%) (Auto) 63, Lymphocytes (%) (Auto) 20, Monocytes (%) (Auto) 10, Eosinophils (%) (Auto) 6, Basophils (%) (Auto) 0, Neutrophils # (Auto) 10.8H, Lymphocytes # (Auto) 3.4, Monocytes # (Auto) 1.7H, Eosinophils # (Auto) 1.1H, Basophils # (Auto) 0.1, Sodium Level 137, Potassium Level 3.1L, Chloride Level 97L, Carbon Dioxide Level 27, Anion Gap 13, Blood Urea Nitrogen 26H, Creatinine 1.64H, Estimat Glomerular Filtration Rate 32, BUN/ Creatinine Ratio 16, Glucose Level 103, Calcium Level 9.0, Corrected Calcium 9.5 , Total Bilirubin 0.4, Aspartate Amino Transf (AST/SGOT) 14, Alanine Aminotransferase (ALT/SGPT) 8, Alkaline Phosphatase 21L, Total Protein 5.9L, Albumin 3.4 Microbiology 08/10/18 Blood Culture - Preliminary, Resulted No growth 08/11/18 Gram Stain - Final, Complete 08/11/18 Sputum Culture - Final, Complete Loretta glabrata Loretta dubliniensis Assessment/Plan Assessment/Plan Assess & Plan/Chief Complaint PNEUMONIA - HOSPITAL ACQUIRED ACUTE PULMONARY EDEMA CAD WITH CABG ON 07/28/18 HEART FAILURE POST-OPERATIVELY ELEVATED WHITE COUNT HX OF TOBACCOISM PNEUMONIA - HOSPITAL ACQUIRED WITH ACUTE PULMONARY EDEMA - CONTINUE WITH BROAD SPECTRUM IV ANTIBIOTICS - MONITOR SYMPTOMS - REPEAT CHEST XRAYS SERIALLY. CAD WITH CABG ON 07/28/18 - SUPPORTIVE CARE, DEFER TO DR. MCMANUS - PT WILL NEED KWAME REMOVED FROM HER LOWER LEGS WITH STERI STRIPS PLACED IN THE NEXT FEW DAYS. HEART FAILURE POST-OPERATIVELY -AND POST-OP PLEURAL EFFUSIONS - CONTINUE WITH LASIX ELEVATED WHITE COUNT - PT HAS CHRONICALLY ELEVATED WBC'S IN THE 12 - 15 RANGE, BUT SHE HAS WHITE COUNT IN THE 20'S - CONTINUE WITH BROAD SPECTRUM IV ANTIBIOTICS. - REPEAT SERIAL LABS. HX OF TOBACCOISM - PT HAS STOPPED SMOKING POST-CABG PT WILL NEED THERAPY - WILL TRANSFER DOWN TO 4TH FLOOR FOR THERAPY AND FURTHER MONITORING. EMPHYSEMA - CHRONIC - SUPPORTIVE CARE Clinical Quality Measures DVT/VTE Risk/Contraindication: Risk Factor Score Per Nursin RFS Level Per Nursing on Admit: 4+=Very High Contraindications-Mechi: Other *list below* Other: PT HAS KWAME IN PLACE ON BILATERAL LOWER LEGS WITH RECENT VEIN HARVESTING AND SCD'S WOULD IMPAIR HEALING MAULIK COLLIER MD Aug 15, 2018 09:33
--- NOTE | 2018-08-15 09:34 | Cardiology Progress Note ---
Subjective Date Seen by Provider: Aug 15, 2018 Time Seen by Provider: 09:32 Subjective/Events-last exam Patient sitting up in bed. Suture removal by nurse at bedside. Denies any chest pain or dyspnea. Objective-Cardiology Exam Last Set of Vital Signs Vital Signs 08/14/18 08/15/18 08/15/18 07:32 04:00 08:00 Temp 99.3 Pulse 81 Resp 16 B/P (MAP) 106/64 (78) Pulse Ox 94 O2 Delivery Nasal Cannula O2 Flow Rate 1.50 FiO2 24 Capillary Refill : Less Than 3 SecondsLess Than 3 Seconds I&O Intake and Output 08/15/18 00:00 Intake Total 1820 ml Balance 1820 ml Intake Oral 1270 ml IV Total 550 ml # Voids 7 # Bowel Movements 4 General: Alert, Oriented X3, Cooperative, No Acute Distress HEENT: Atraumatic, PERRLA Neck: Supple, No JVD Lungs: Other (DECREASED BREATH SOUNDS FROM LEFT MID LUNG TO BASE, AND RIGHT BASE) Heart: Regular Rate, Normal S1, Normal S2, Other (S3/4) Abdomen: Normal Bowel Sounds, No Tenderness, No Hepatosplenomegaly Extremities: No Clubbing, No Cyanosis, Other (MEDIALLY BILATERALLY - VEIN HARVEST SITES C/D/I - KWAME STILL IN PLACE) Skin: No Rashes, No Breakdown, Other (POST-OP CENTRAL CHEST, UPPER ABD - SURGICAL SITES HEALING WELL, BILATERAL MEDIAL LOWER LEGS TO MID-THIGHS - KWAME IN PLACE) Neuro: Normal Gait, Cranial Nerves 3-12 NL Psych/Mental Status: Mental Status NL, Mood NL Results Lab Laboratory Tests 08/14/18 11:20 08/15/18 05:15 A/P-Cardiology Admission Diagnosis Congestive heart failure Pneumonia Coronary artery disease Hypertension Assessment/Plan Congestive heart failure, echocardiogram showed preserved left ventricular systolic function, responding to Lasix. Continue to monitor. Abdominal pain, constipation, had a BM yesterday and feeling better Pleural effusion secondary to CABG. Continue on diuretics and monitor. I will change lasix to PO. Coronary artery disease, status post myocardial infarction occurred early in July 2018, had CABG 4 done on July 30, 2018 in [place] and she was discharged and drove back to [place]. Troponin is negative. EKG showed diffuse T-wave inversion, probably her baseline. Continue to monitor, no changes at this time, restart aspirin Pneumonia, history of COPD, sepsis, improving, continue to monitor Depression post bypass surgery, COPD,start Zoloft and monitor Chest pain, musculoskeletal from the incision, appeared to be healing well, leg wound at the site of the vein harvest also is healing well. Continue to monitor Hypertension, borderline hypotension, continue to monitor BP/HR. Hyperlipidemia, on Lipitor, continue to monitor. COPD, acute exacerbation, acute respiratory insufficiency, history of emphysema. Tobaccoism, patient has stopped smoking after her recent hospitalization and bypass surgery, encouraged to continue with smoking cessation Clinical Quality Measures DVT/VTE Risk/Contraindication: Risk Factor Score Per Nursin RFS Level Per Nursing on Admit: 4+=Very High Contraindications-Mechi: Other *list below* Other: PT HAS KWAME IN PLACE ON BILATERAL LOWER LEGS WITH RECENT VEIN HARVESTING AND SCD'S WOULD IMPAIR HEALING NILDA YOU Aug 15, 2018 09:34
[2018-08-15] MEDS ORDERED: ANIDULAFUNGIN 200 MG/NS 250 ML IVPB IV ONE ×2 (09:45)
--- NOTE | 2018-08-15 10:00 | NUR ---
Some cam removed from patients bilateral legs per Dr. Fonseca's direction. Steri strips applied. Pt. tolerated well.
--- NOTE | 2018-08-15 10:44 | Pulmonary Progress Note ---
Subjective Time Seen by a Provider: 10:42 Subjective/Events-last exam PT feels improved this morning. Sepsis Event Evaluation Height, Weight, BMI Height: 5'2.00" Weight: 134lbs. 7.0oz. 60.696515tu; 24.9 BMI Method:Stated Exam Exam Vital Signs Date Time Temp Pulse Resp B/P (MAP) Pulse Ox O2 Delivery O2 Flow Rate FiO2 08/15/18 08:00 Nasal Cannula 1.50 08/15/18 08:00 97.2 80 16 96/51 (66) 98 Nasal Cannula 1.00 08/15/18 04:00 99.3 81 16 106/64 (78) 94 Nasal Cannula 1.00 08/15/18 01:59 97 Nasal Cannula 1.00 08/15/18 00:00 97.8 82 16 87/50 (62) 98 Nasal Cannula 1.00 08/14/18 21:46 94 Nasal Cannula 1.00 08/14/18 20:00 Nasal Cannula 1.50 08/14/18 15:35 98.9 85 20 119/58 (78) 96 Nasal Cannula 1.00 08/14/18 14:38 93 Nasal Cannula 1.00 I & O 08/15/18 07:00 Intake Total 1470 ml Balance 1470 ml Height & Weight Height: 5'2.00" Weight: 134lbs. 7.0oz. 60.013884rr; 24.9 BMI Method:Stated General Appearance: No Apparent Distress, WD/WN, Chronically ill HEENT: Normal ENT Inspection Neck: Full Range of Motion, Normal Inspection, Non Tender, Supple Respiratory: Chest Non Tender, No Accessory Muscle Use, No Respiratory Distress , Crackles, Decreased Breath Sounds Cardiovascular: Regular Rate, Rhythm, No Edema, No Gallop, No JVD, No Murmur, Normal Peripheral Pulses Capillary Refill: Less Than 3 Seconds Gastrointestinal: normal bowel sounds, distended (Mild distension), tenderness (diffuse) Extremity: Normal Capillary Refill, Normal Inspection, Normal Range of Motion Neurologic/Psychiatric: Alert, Oriented x3, No Motor/Sensory Deficits, Normal Mood/Affect Skin: Normal Color, Warm/Dry Lymphatic: No Adenopathy Results Lab Laboratory Tests 08/14/18 11:20 08/15/18 05:15 Assessment/Plan Assessment/Plan Dyspnea with hypoxia - improving -OXygen- Not needing as much -SVNs -Monitor Left Pleural effusion probably secondary to CABG -Monitor COPD with tobacco use (recently stopped smoking) -Out patient work up -Monitor Leukocytosis- improving -Antifungal -Monitor close -[place] CHF CAD with recent CABG 07/31 HTN TATE JACKSON DO Aug 15, 2018 10:44
--- NOTE | 2018-08-15 10:46 | Cardiology Progress Note ---
Subjective Date Seen by Provider: Aug 15, 2018 Time Seen by Provider: 10:45 Subjective/Events-last exam patient is laying down in bed, feeling better, had a bowel movement, breathing is better. Review of Systems General: No Chills, No Night Sweats, No Fatigue, No Malaise, No Appetite, No Other HEENT: No Head Aches, No Visual Changes, No Eye Pain, No Ear Pain, No Dysphasia , No Sinus Congestion, No Post Nasal Drip, No Sore Throat, No Other Pulmonary: Dyspnea; No Cough, No Pleuritic Chest Pain, No Other Cardiovascular: No: Chest Pain, Palpitations, Orthopnea, Paroxysmal Noc. Dyspnea, Edema, Lt Headedness, Other Objective-Cardiology Exam Last Set of Vital Signs Vital Signs 08/14/18 08/15/18 07:32 08:00 Temp 97.2 Pulse 80 Resp 16 B/P (MAP) 96/51 (66) Pulse Ox 98 O2 Delivery Nasal Cannula O2 Flow Rate 1.50 FiO2 24 Capillary Refill : Less Than 3 SecondsLess Than 3 Seconds I&O Intake and Output 08/15/18 00:00 Intake Total 1820 ml Balance 1820 ml Intake Oral 1270 ml IV Total 550 ml # Voids 7 # Bowel Movements 4 General: Alert, Oriented X3, Cooperative, No Acute Distress HEENT: Atraumatic, PERRLA Neck: Supple, No JVD Lungs: Other (DECREASED BREATH SOUNDS FROM LEFT MID LUNG TO BASE, AND RIGHT BASE) Heart: Regular Rate, Normal S1, Normal S2, Other (S3/4) Abdomen: Normal Bowel Sounds, No Tenderness, No Hepatosplenomegaly Extremities: No Clubbing, No Cyanosis, Other (MEDIALLY BILATERALLY - VEIN HARVEST SITES C/D/I - KWAME STILL IN PLACE) Skin: No Rashes, No Breakdown, Other (POST-OP CENTRAL CHEST, UPPER ABD - SURGICAL SITES HEALING WELL, BILATERAL MEDIAL LOWER LEGS TO MID-THIGHS - KWAME IN PLACE) Neuro: Normal Gait, Cranial Nerves 3-12 NL Psych/Mental Status: Mental Status NL, Mood NL Results Lab Laboratory Tests 08/14/18 11:20 08/15/18 05:15 A/P-Cardiology Admission Diagnosis Congestive heart failure Pneumonia Coronary artery disease Hypertension Assessment/Plan Congestive heart failure, echocardiogram showed preserved left ventricular systolic function, responding to Lasix, borderline hypotensive, change Lasix to oral 40 mg once daily and monitor closely Abdominal pain, constipation, had a BM yesterday and feeling better Pleural effusion secondary to CABG. Continue on diuretics and monitor. I will change lasix to PO. Coronary artery disease, status post myocardial infarction occurred early in July 2018, had CABG 4 done on July 30, 2018 in [place] and she was discharged and drove back to [place]. Troponin is negative. EKG showed diffuse T-wave inversion, probably her baseline. Continue to monitor, no changes at this time, restarted on aspirin Pneumonia, history of COPD, sepsis, improving, continue to monitor Depression post bypass surgery, COPD,start Zoloft and monitor Chest pain, musculoskeletal from the incision, appeared to be healing well, leg wound at the site of the vein harvest also is healing well. Continue to monitor Hypertension, borderline hypotension, continue to monitor BP/HR. Hyperlipidemia, on Lipitor, continue to monitor. COPD, acute exacerbation, acute respiratory insufficiency, history of emphysema. Tobaccoism, patient has stopped smoking after her recent hospitalization and bypass surgery, encouraged to continue with smoking cessation Clinical Quality Measures DVT/VTE Risk/Contraindication: Risk Factor Score Per Nursin RFS Level Per Nursing on Admit: 4+=Very High Contraindications-Mechi: Other *list below* Other: PT HAS KWAME IN PLACE ON BILATERAL LOWER LEGS WITH RECENT VEIN HARVESTING AND SCD'S WOULD IMPAIR HEALING SUPA MCMANUS MD Aug 15, 2018 10:46
--- NOTE | 2018-08-15 10:57 | Physical Therapy Evaluation ---
PT Evaluation-General Medical Diagnosis Admission Date Aug 07, 2018 at 04:39 Medical Diagnosis: weakness Onset Date: Aug 07, 2018 Therapy Diagnosis Therapy Diagnosis: impaired mobility, endurance Height/Weight Height (Feet): 5 Height (Inches): 2.00 Weight (Pounds): 134 Weight (Ounces): 7.0 Precautions Precautions/Isolations: Standard Precautions Referral Physician: Tamia Fonseca MD Reason for Referral: Evaluation/Treatment Medical History Additional Medical History Past Medical History Surgeries: Cardiac, CABG, Hysterectomy, Oophorectomy, Open Heart Surgery, Orthopedic Respiratory: Pneumonia Currently Using CPAP: No Currently Using BIPAP: No Cardiac: Coronary Artery Disease, Heart Attack, High Cholesterol, Hypertension : No Female 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 Disorders: Denies Hysterectomy, Menopausal Musculoskeletal: Degenerate Disk Disease, Arthritis, Chronic Back Pain Skin/Integumentary: Psoriasis History of Blood Disorders: Yes (POST OP ANEMIA 07/2018) Reviewed History: Yes Social History Home: Apartment Current Living Status: Spouse Entry Into Home: Elevator Patient states she is staying with her sister, daughter and will also be available to assist Prior/Core FIM Prior Level of Function Therapy Code Descriptions/Definitions Functional [place] Measure: 0=Not Assessed/NA 4=Minimal Assistance 1=Total Assistance 5=Supervision or Setup 2=Maximal Assistance 6=Modified [place] 3=Moderate Assistance 7=Complete [place] Therapy Quality Codes: 6 Independent with activity with or without an assistive device 5 Patient requires set up or clean up by helper. Patient completes activity by themselves 4 Supervision or touching assist (CGA). [place] provide cues , steadying assist 3 The helper provides less than half the effort to complete the activity 2 The helper provides more than half the effort to complete the activity 1 Dependent. The helper does all the effort to complete an activity 7 Patient refused to complete or attempt activity 9 The patient did not perform the activity before the current illness or injury 88 Not attempted due to Medical conditions or safety concerns Functional Abilities and Goals: Independent: Patient completed the activities by him/herself, with or without an assistive device, with no assistance from a helper. Needed Some Help: Patient needed partial assistance from another person to complete activities. Dependent: A helper completed the activities for the patient. Unknown: Not Applicable: Bed Mobility: 7 Transfers (B,C,W/C) (FIM): 7 Gait: 7 Stairs: 7 Indoor Mobility (Ambulation): Independent Stairs: Independent PT Evaluation-Current Subjective Patient in bed pre tx, agrees to PT, has 6/10 pain in chest incision, patient has asked for pain meds and states she cannot have any quite yet. Pt/Family Goals to be independent at home Objective Patient Orientation: Person, Place, Situation Attachments: IV ROM/Strength ROM Lower Extremities NT Strength Lower Extremities NT due to leg incisions Integumentary/Posture Integumentary bilateral leg vessel harvesting, chest incision Neuromuscular (Tone, Coordination, Reflexes) NT Sensory Vision: Wears Glasses Hearing: Functional Sensation Right Lower Extremit: Impaired Sensation Left Lower Extremity: Impaired Sensation Lower Extremities Patient has intact light touch sensation in both lower extremities but patient states it is decreased. Transfers Therapy Code Descriptions/Definitions Functional [place] Measure: 0=Not Assessed/NA 4=Minimal Assistance 1=Total Assistance 5=Supervision or Setup 2=Maximal Assistance 6=Modified [place] 3=Moderate Assistance 7=Complete [place] Transfers (B, C, W/C) (FIM): 7 Scootin Rollin Supine to/from Sit: 7 Sit to/from Stand: 7 bed t/f WC(FIM only if WC use): 7 Gait Mode of Locomotion: Walk Anticipated Mode of Locomotion: Walk Gait (FIM): 5 Distance: 250' Gait Level of Assist: 5 Gait Persons Needed: 1 Gait Assistive Device: None Comments/Gait Description Slow ambulation, needed one rest break due to SOB but recovered quickly. Balance Sitting Static: Normal Sitting Dynamic: Normal Standing Static: Good Standing Dynamic: Good Treatment seated exercises x15 (AP, LAQ) Assessment/Needs Patient has impaired mobility, endurance, She ambulated without LOB but did get SOB. Patient sitting EOB post tx, she complains of itching all over her body, nurse notified. Rehab Potential: Fair PT Short Term Goals Short Term Goals Time Frame: Aug 22, 2018 Transfers (B,C,W/C) (FIM): 7 Gait (FIM): 7 Gait Distance Comment: 300' Gait Assistive Device: None PT Plan Problem List Problem List: Activity Tolerance, Functional Strength, Safety, Balance, Gait, Transfer Treatment/Plan Treatment Plan: Continue Plan of Care Treatment Plan: Education, Functional Activity Erasmo, Functional Strength, Gait , Safety, Therapeutic Exercise, Transfers Treatment Duration: Aug 22, 2018 Frequency: 6 times per week Estimated Hrs Per Day: .25 hour per day (15-30') Patient and/or Family Agrees t: Yes Safety Risks/Education Patient Education: Gait Training, Transfer Techniques, Correct Positioning, Safety Issues Teaching Recipient: Patient Teaching Methods: Demonstration, Discussion Response to Teaching: Reinforcement Needed Discharge Recommendations Plan Patient will perform bed mobility and transfer training, balance and endurance training, functional strengthening, stair training, gait training, and education , to improve functional mobility and independence at home. Therapy D/C Recommendations: Home w/ Family Support Time/GCodes Time In: 1135 Time Out: 1149 Total Billed Treatment Time: 14 Total Billed Treatment 1 visit MARY Charlene' LAZARO LADD PT Aug 15, 2018 10:57
[2018-08-15] MEDS ORDERED: diphenhydrAMINE 50 MG/ML INJ (BENADRYL) IVP NR (11:00)
--- NOTE | 2018-08-15 11:00 | NUR ---
Patient complaining of itching. Dr. Fonseca called and orders received for IV Benadryl.
--- NOTE | 2018-08-15 11:58 | Progress Note (SOAP) ---
Subjective Date Seen by a Provider: Aug 15, 2018 Time Seen by a Provider: 10:00 Subjective/Events-last exam doing much better. had 4 large soft BM's yesterday. no abdominal pain. Objective Exam Vital Signs Date Time Temp Pulse Resp B/P (MAP) Pulse Ox O2 Delivery O2 Flow Rate FiO2 08/15/18 10:52 92 Room Air 08/15/18 08:00 Nasal Cannula 1.50 08/15/18 08:00 97.2 80 16 96/51 (66) 98 Nasal Cannula 1.00 08/15/18 04:00 99.3 81 16 106/64 (78) 94 Nasal Cannula 1.00 08/15/18 01:59 97 Nasal Cannula 1.00 08/15/18 00:00 97.8 82 16 87/50 (62) 98 Nasal Cannula 1.00 08/14/18 21:46 94 Nasal Cannula 1.00 08/14/18 20:00 Nasal Cannula 1.50 08/14/18 15:35 98.9 85 20 119/58 (78) 96 Nasal Cannula 1.00 08/14/18 14:38 93 Nasal Cannula 1.00 I & O 08/15/18 07:00 Intake Total 1470 ml Balance 1470 ml Capillary Refill : Less Than 3 SecondsLess Than 3 Seconds General Appearance: No Apparent Distress HEENT: PERRL/EOMI Neck: Full Range of Motion Respiratory: Chest Non Tender, Normal Breath Sounds Cardiovascular: Regular Rate, Rhythm Gastrointestinal: normal bowel sounds, non tender, soft Extremity: Normal Capillary Refill Neurologic/Psychiatric: Alert, Oriented x3 Skin: Normal Color Lymphatic: No Adenopathy Results Lab Laboratory Tests 08/15/18 05:15: White Blood Count 17.0H, Red Blood Count 2.76L, Hemoglobin 8.6L, Hematocrit 27L , Mean Corpuscular Volume 99, Mean Corpuscular Hemoglobin 31, Mean Corpuscular Hemoglobin Concent 32, Red Cell Distribution Width 15.8H, Platelet Count 674H, Mean Platelet Volume 8.6, Neutrophils (%) (Auto) 63, Lymphocytes (%) (Auto) 20, Monocytes (%) (Auto) 10, Eosinophils (%) (Auto) 6, Basophils (%) (Auto) 0, Neutrophils # (Auto) 10.8H, Lymphocytes # (Auto) 3.4, Monocytes # (Auto) 1.7H, Eosinophils # (Auto) 1.1H, Basophils # (Auto) 0.1, Sodium Level 137, Potassium Level 3.1L, Chloride Level 97L, Carbon Dioxide Level 27, Anion Gap 13, Blood Urea Nitrogen 26H, Creatinine 1.64H, Estimat Glomerular Filtration Rate 32, BUN/ Creatinine Ratio 16, Glucose Level 103, Calcium Level 9.0, Corrected Calcium 9.5 , Total Bilirubin 0.4, Aspartate Amino Transf (AST/SGOT) 14, Alanine Aminotransferase (ALT/SGPT) 8, Alkaline Phosphatase 21L, Total Protein 5.9L, Albumin 3.4 Microbiology 08/10/18 Blood Culture - Preliminary, Resulted No growth 08/11/18 Gram Stain - Final, Complete 08/11/18 Sputum Culture - Final, Complete Loretta glabrata Loretta dubliniensis Assessment/Plan Assessment/Plan Assess & Plan/Chief Complaint constipation s/p CABG, CHF and pneumonia and decreased bowel motility due to opiodes. doing much better after miralax PO and suppository. will recommend scheduled stool softeners for now but high fiber diet snf. Clinical Quality Measures DVT/VTE Risk/Contraindication: Risk Factor Score Per Nursin RFS Level Per Nursing on Admit: 4+=Very High Contraindications-Mechi: Other *list below* Other: PT HAS KWAME IN PLACE ON BILATERAL LOWER LEGS WITH RECENT VEIN HARVESTING AND SCD'S WOULD IMPAIR HEALING DELTA BETH MD Aug 15, 2018 11:58
--- NOTE | 2018-08-15 14:10 | NUR ---
IRF Evaluation: Order received to evaluate patient for the ARU. Chart reviewed and it appears patient is transferring with independence and ambulating (250ft) with SBA; therefore, patient does not require intensive therapies, at this time. Dr. Fonseca notified. Thank you for this referral.
--- NOTE | 2018-08-15 15:37 | NUR ---
Pastoral Care Visit.
[2018-08-15 16:00] VITALS: BP 111/54
[2018-08-15 20:55] VITALS: BP 108/51
[2018-08-15] MEDS: SERTRALINE 50 MG (ZOLOFT) TABLET PO SCH (21:01)
[2018-08-15] MEDS: ATORVASTATIN 20 MG (LIPITOR) TABLET PO SCH (21:01)
[2018-08-16] VITALS: BP 109/54
[2018-08-16] MEDS: ALPRAZolam 0.25 MG (XANAX) TAB PO PRN ×2 (01:18→16:15)
[2018-08-16] MEDS: RT-ALBUTEROL/IPRATROPIUM 3 ML (DUONEB) VIAL INH SCH ×4 (02:35→19:59)
[2018-08-16] MEDS: oxyCODONE/APAP 5/325MG (PERCOCET 5) TABLET PO PRN ×3 (04:54→17:55)
[2018-08-16] MEDS: MEROPENEM 500 MG in NS (IVPB) 100 ML IV SCH ×2 (04:54→17:45)
[2018-08-16] MEDS: CATHETER FLUSH 10 ML SYR IV SCH ×3 (04:54→22:23)
[2018-08-16] MEDS ORDERED: NS (IVPB) 250 ML ONE (07:54)
[2018-08-16] MEDS ORDERED: NS (IVPB) 250 ML IV ONE (08:00)
[2018-08-16] MEDS: POTASSIUM CL 10MEQ/50ML IVPB 50 ML IV SCH ×4 (08:21→11:30)
--- NOTE | 2018-08-16 08:28 | Pulmonary Progress Note ---
Subjective Time Seen by a Provider: 08:28 Subjective/Events-last exam PT is requiring less oxygen. PT feels improved. Sepsis Event Evaluation Height, Weight, BMI Height: 5'2.00" Weight: 131lbs. 2.0oz. 59.286121pc; 24.9 BMI Method:Stated Exam Exam Vital Signs Date Time Temp Pulse Resp B/P (MAP) Pulse Ox O2 Delivery O2 Flow Rate FiO2 08/16/18 02:36 97 Nasal Cannula 1.00 08/16/18 00:05 93 Nasal Cannula 2.00 08/16/18 00:00 98.9 82 16 109/54 (72) 88 Room Air 08/15/18 20:55 99.3 83 18 108/51 (70) 94 Room Air 08/15/18 20:43 94 Room Air 08/15/18 20:00 Room Air 08/15/18 16:00 99.5 81 18 111/54 (73) 92 Nasal Cannula 1.00 08/15/18 15:30 90 21 08/15/18 15:25 90 Room Air 08/15/18 10:52 92 Room Air I & O 08/16/18 07:00 Intake Total 1820 ml Balance 1820 ml Height & Weight Height: 5'2.00" Weight: 131lbs. 2.0oz. 59.709244lo; 24.9 BMI Method:Stated General Appearance: No Apparent Distress, WD/WN, Chronically ill HEENT: Normal ENT Inspection Neck: Full Range of Motion, Normal Inspection, Non Tender, Supple Respiratory: Chest Non Tender, No Accessory Muscle Use, No Respiratory Distress , Crackles, Decreased Breath Sounds Cardiovascular: Regular Rate, Rhythm, No Edema, No Gallop, No JVD, No Murmur, Normal Peripheral Pulses Capillary Refill: Less Than 3 Seconds Gastrointestinal: normal bowel sounds, distended (Mild distension), tenderness (diffuse) Extremity: Normal Capillary Refill, Normal Inspection, Normal Range of Motion Neurologic/Psychiatric: Alert, Oriented x3, No Motor/Sensory Deficits, Normal Mood/Affect Skin: Normal Color, Warm/Dry Lymphatic: No Adenopathy Results Lab Laboratory Tests 08/14/18 11:20 08/15/18 05:15 Assessment/Plan Assessment/Plan Dyspnea with hypoxia - improving -Oxygen- -SVNs -Monitor Left Pleural effusion probably secondary to CABG -Monitor COPD with tobacco use (recently stopped smoking) -Out patient work up -Monitor Leukocytosis- improving -Antifungal -Monitor close -Merrem CHF CAD with recent CABG 07/31 HTN TATE JACKSON DO Aug 16, 2018 08:28
[2018-08-16 08:36] VITALS: BP 124/57
[2018-08-16] MEDS ORDERED: KCL 20 MEQ TAB (K-DUR) PO NR (08:45)
[2018-08-16] MEDS: meTOproloL SUCCINATE 50 MG (TOPROL XL) TAB PO SCH (08:49)
[2018-08-16] MEDS: ASPIRIN 81 MG CHEW (CHILDREN'S ASA) PO SCH (08:49)
[2018-08-16] MEDS: lisINopril 5 MG (PRINIVIL) TABLET PO SCH (08:49)
[2018-08-16] MEDS: ENOXAPARIN 40 MG/0.4 ML (LOVENOX) SYR SC SCH (08:50)
[2018-08-16] MEDS: NICOTINE PATCH REMOVAL TP SCH (08:50)
[2018-08-16] MEDS: NICOTINE 21 MG (NICODERM) PATCH TD SCH (08:50)
[2018-08-16] MEDS: FUROSEMIDE 40 MG (LASIX) TAB PO SCH (08:50)
[2018-08-16] MEDS: POLYETHYLENE GLYCOL 17 GM (MIRALAX) PACK PO SCH ×2 (08:50→22:23)
--- NOTE | 2018-08-16 08:55 | Diagnostic Imaging Report ---
Indication: Pneumonia PA and lateral chest Left subclavian central tip projects over the SVC. There are postop changes from median sternotomy. There is a small left pleural effusion. Impression: Postsurgical changes of the chest. Left pleural effusion. No significant change from previous day. Dictated by: Dictated on workstation # [id number]
[2018-08-16] MEDS: fentaNYL INJECTION 100 MCG/2 ML AMP IVP PRN (09:00)
--- NOTE | 2018-08-16 09:19 | Progress Note ---
Objective Exam Last Set of Vital Signs Vital Signs Date Time Temp Pulse Resp B/P (MAP) Pulse Ox O2 Delivery O2 Flow Rate FiO2 08/16/18 08:36 98.7 76 18 124/57 (79) 97 Nasal Cannula 2.00 08/15/18 15:30 21 Capillary Refill : Less Than 3 SecondsLess Than 3 Seconds I&O Intake and Output 08/16/18 00:00 Intake Total 1670 ml Balance 1670 ml Intake Oral 1670 ml # Voids 9 # Bowel Movements 2 General: Alert, Oriented X3, Cooperative, No Acute Distress HEENT: Atraumatic, PERRLA Neck: Supple, No JVD Lungs: Other (DECREASED BREATH SOUNDS FROM LEFT MID LUNG TO BASE, AND RIGHT BASE) Heart: Regular Rate, Normal S1, Normal S2, Other (S3/4) Abdomen: Normal Bowel Sounds, No Tenderness, No Hepatosplenomegaly Extremities: No Clubbing, No Cyanosis, Other (MEDIALLY BILATERALLY - VEIN HARVEST SITES C/D/I - KWAME STILL IN PLACE) Skin: No Rashes, No Breakdown, Other (POST-OP CENTRAL CHEST, UPPER ABD - SURGICAL SITES HEALING WELL, BILATERAL MEDIAL LOWER LEGS TO MID-THIGHS - KWAME IN PLACE) Neuro: Normal Gait, Cranial Nerves 3-12 NL Psych/Mental Status: Mental Status NL, Mood NL Results Lab Microbiology 08/10/18 Blood Culture - Final, Complete No growth 08/11/18 Gram Stain - Final, Complete 08/11/18 Sputum Culture - Final, Complete Loretta glabrata Loretta dubliniensis Assessment/Plan Assessment/Plan Assess & Plan/Chief Complaint PNEUMONIA - HOSPITAL ACQUIRED ACUTE PULMONARY EDEMA CAD WITH CABG ON 07/28/18 HEART FAILURE POST-OPERATIVELY ELEVATED WHITE COUNT HX OF TOBACCOISM PNEUMONIA - HOSPITAL ACQUIRED WITH ACUTE PULMONARY EDEMA - CONTINUE WITH BROAD SPECTRUM IV ANTIBIOTICS - MONITOR SYMPTOMS - REPEAT CHEST XRAYS SERIALLY. CAD WITH CABG ON 07/28/18 - SUPPORTIVE CARE, DEFER TO DR. MCMANUS - PT WILL NEED KWAME REMOVED FROM HER LOWER LEGS WITH STERI STRIPS PLACED IN THE NEXT FEW DAYS. HEART FAILURE POST-OPERATIVELY -AND POST-OP PLEURAL EFFUSIONS - CONTINUE WITH LASIX ELEVATED WHITE COUNT - PT HAS CHRONICALLY ELEVATED WBC'S IN THE 12 - 15 RANGE, BUT SHE HAS WHITE COUNT IN THE 20'S - CONTINUE WITH BROAD SPECTRUM IV ANTIBIOTICS. - REPEAT SERIAL LABS. HX OF TOBACCOISM - PT HAS STOPPED SMOKING POST-CABG PT WILL NEED THERAPY - WILL TRANSFER DOWN TO 4TH FLOOR FOR THERAPY AND FURTHER MONITORING. EMPHYSEMA - CHRONIC - SUPPORTIVE CARE Clinical Quality Measures DVT/VTE Risk/Contraindication: Risk Factor Score Per Nursin RFS Level Per Nursing on Admit: 4+=Very High Contraindications-Mechi: Other *list below* Other: PT HAS KWAME IN PLACE ON BILATERAL LOWER LEGS WITH RECENT VEIN HARVESTING AND SCD'S WOULD IMPAIR HEALING MAULIK COLLIER MD Aug 16, 2018 09:19
--- NOTE | 2018-08-16 10:12 | Physical Therapy Daily Note ---
PT Daily Note-Current Subjective Patient agrees to PT. Mental Status Patient Orientation: Normal For Age Attachments: IV Transfers Therapy Code Descriptions/Definitions Functional [place] Measure: 0=Not Assessed/NA 4=Minimal Assistance 1=Total Assistance 5=Supervision or Setup 2=Maximal Assistance 6=Modified [place] 3=Moderate Assistance 7=Complete [place] Therapy Quality Codes: 6 Independent with activity with or without an assistive device 5 Patient requires set up or clean up by helper. Patient completes activity by themselves 4 Supervision or touching assist (CGA). [place] provide cues , steadying assist 3 The helper provides less than half the effort to complete the activity 2 The helper provides more than half the effort to complete the activity 1 Dependent. The helper does all the effort to complete an activity 7 Patient refused to complete or attempt activity 9 The patient did not perform the activity before the current illness or injury 88 Not attempted due to Medical conditions or safety concerns Transfers (B, C, W/C) (FIM): 7 Scootin Supine to/from Sit: 7 Sit to/from Stand: 7 Gait Training Gait (FIM): 7 Distance (FIM): 3=150 ft Distance: >800' Gait Level of Assist: 7 Gait Assistive Device: None slow, safe and functional with no deviation Assessment Patient is currently independent with all gross motor skills and has been instructed to ambulate PRN in hallway independently. PT to dismiss patient from services at this time. PT Short Term Goals Short Term Goals Time Frame: Aug 22, 2018 Transfers (B,C,W/C) (FIM): 7 Gait (FIM): 7 Gait Distance Comment: 300' Gait Assistive Device: None PT Plan Treatment/Plan Treatment Plan: Discontinue PT, goals met Treatment Plan: Education, Functional Activity Erasmo, Functional Strength, Gait , Safety, Therapeutic Exercise, Transfers Treatment Duration: Aug 22, 2018 Frequency: 6 times per week Estimated Hrs Per Day: .25 hour per day (15-30') Patient and/or Family Agrees t: Yes Time/GCodes Time In: 944 Time Out: 954 Total Billed Treatment Time: 10 Total Billed Treatment 1 visit FA 10 min ELENI RAMIREZ PT Aug 16, 2018 10:12
[2018-08-16] MEDS: TRIM/SULFAMETH 160/800 (SEPTRA DS) TAB PO SCH ×2 (10:13→17:44)
[2018-08-16] MEDS: ANIDULAFUNGIN 100 MG/NS 100 ML IV SCH ×2 (10:13)
--- NOTE | 2018-08-16 13:30 | Cardiology Progress Note ---
Subjective Date Seen by Provider: Aug 16, 2018 Time Seen by Provider: 13:28 Subjective/Events-last exam Patient is sitting at bedside, reports continues to improve everyday. Continue to c/o chest pain at incision site. Objective-Cardiology Exam Last Set of Vital Signs Vital Signs 08/15/18 08/16/18 15:30 08:36 Temp 98.7 Pulse 76 Resp 18 B/P (MAP) 124/57 (79) Pulse Ox 97 O2 Delivery Nasal Cannula O2 Flow Rate 2.00 FiO2 21 Capillary Refill : Less Than 3 SecondsLess Than 3 Seconds I&O Intake and Output 08/16/18 00:00 Intake Total 1670 ml Balance 1670 ml Intake Oral 1670 ml # Voids 9 # Bowel Movements 2 General: Alert, Oriented X3, Cooperative, No Acute Distress HEENT: Atraumatic, PERRLA Neck: Supple, No JVD Lungs: Other (DECREASED BREATH SOUNDS FROM LEFT MID LUNG TO BASE, AND RIGHT BASE) Heart: Regular Rate, Normal S1, Normal S2, Other (S3/4) Abdomen: Normal Bowel Sounds, No Tenderness, No Hepatosplenomegaly Extremities: No Clubbing, No Cyanosis, Other (MEDIALLY BILATERALLY - VEIN HARVEST SITES C/D/I - KWAME STILL IN PLACE) Skin: No Rashes, No Breakdown, Other (POST-OP CENTRAL CHEST, UPPER ABD - SURGICAL SITES HEALING WELL, BILATERAL MEDIAL LOWER LEGS TO MID-THIGHS - KWAME IN PLACE) Neuro: Normal Gait, Cranial Nerves 3-12 NL Psych/Mental Status: Mental Status NL, Mood NL A/P-Cardiology Admission Diagnosis Congestive heart failure Pneumonia Coronary artery disease Hypertension Assessment/Plan Congestive heart failure, echocardiogram showed preserved left ventricular systolic function, responding to Lasix, borderline hypotensive, change Lasix to oral 40 mg once daily and monitor closely Abdominal pain, constipation,resolved. Pleural effusion secondary to CABG. Continue on diuretics and monitor. Coronary artery disease, status post myocardial infarction occurred early in July 2018, had CABG 4 done on July 30, 2018 in [place] and she was discharged and drove back to [place]. Troponin is negative. EKG showed diffuse T-wave inversion, probably her baseline. Continue to monitor, no changes at this time, restarted on aspirin Pneumonia, history of COPD, sepsis, improving, continue to monitor Depression post bypass surgery, COPD,start Zoloft and monitor Chest pain, musculoskeletal from the incision, appeared to be healing well, leg wound at the site of the vein harvest also is healing well. Continue to monitor Hypertension, borderline hypotension, continue to monitor BP/HR. Hyperlipidemia, on Lipitor, continue to monitor. COPD, acute exacerbation, acute respiratory insufficiency, history of emphysema. Tobaccoism, patient has stopped smoking after her recent hospitalization and bypass surgery, encouraged to continue with smoking cessation Clinical Quality Measures DVT/VTE Risk/Contraindication: Risk Factor Score Per Nursin RFS Level Per Nursing on Admit: 4+=Very High Contraindications-Mechi: Other *list below* Other: PT HAS KWAME IN PLACE ON BILATERAL LOWER LEGS WITH RECENT VEIN HARVESTING AND SCD'S WOULD IMPAIR HEALING NILDA YOU Aug 16, 2018 13:30
--- NOTE | 2018-08-16 13:44 | Cardiology Progress Note ---
Subjective Date Seen by Provider: Aug 16, 2018 Time Seen by Provider: 13:43 Subjective/Events-last exam patient was seen at bedside, feeling better. Denied any chest pain. Breathing is better today. Review of Systems General: No Chills, No Night Sweats, No Fatigue, No Malaise, No Appetite, No Other HEENT: No Head Aches, No Visual Changes, No Eye Pain, No Ear Pain, No Dysphasia , No Sinus Congestion, No Post Nasal Drip, No Sore Throat, No Other Pulmonary: Dyspnea; No Cough, No Pleuritic Chest Pain, No Other Cardiovascular: No: Chest Pain, Palpitations, Orthopnea, Paroxysmal Noc. Dyspnea, Edema, Lt Headedness, Other Objective-Cardiology Exam Last Set of Vital Signs Vital Signs 08/15/18 08/16/18 15:30 08:36 Temp 98.7 Pulse 76 Resp 18 B/P (MAP) 124/57 (79) Pulse Ox 97 O2 Delivery Nasal Cannula O2 Flow Rate 2.00 FiO2 21 Capillary Refill : Less Than 3 SecondsLess Than 3 Seconds I&O Intake and Output 08/16/18 00:00 Intake Total 1670 ml Balance 1670 ml Intake Oral 1670 ml # Voids 9 # Bowel Movements 2 General: Alert, Oriented X3, Cooperative, No Acute Distress HEENT: Atraumatic, PERRLA Neck: Supple, No JVD Lungs: Other (DECREASED BREATH SOUNDS FROM LEFT MID LUNG TO BASE, AND RIGHT BASE) Heart: Regular Rate, Normal S1, Normal S2, Other (S3/4) Abdomen: Normal Bowel Sounds, No Tenderness, No Hepatosplenomegaly Extremities: No Clubbing, No Cyanosis, Other (MEDIALLY BILATERALLY - VEIN HARVEST SITES C/D/I - KWAME STILL IN PLACE) Skin: No Rashes, No Breakdown, Other (POST-OP CENTRAL CHEST, UPPER ABD - SURGICAL SITES HEALING WELL, BILATERAL MEDIAL LOWER LEGS TO MID-THIGHS - KWAME IN PLACE) Neuro: Normal Gait, Cranial Nerves 3-12 NL Psych/Mental Status: Mental Status NL, Mood NL A/P-Cardiology Admission Diagnosis Congestive heart failure Pneumonia Coronary artery disease Hypertension Assessment/Plan Congestive heart failure, echocardiogram showed preserved left ventricular systolic function, responding to Lasix, borderline hypotensive, change Lasix to oral 40 mg once daily and monitor closely Abdominal pain, constipation,resolved. Pleural effusion secondary to CABG. Continue on diuretics and monitor. Coronary artery disease, status post myocardial infarction occurred early in July 2018, had CABG 4 done on July 30, 2018 in [place] and she was discharged and drove back to [place]. Troponin is negative. EKG showed diffuse T-wave inversion, probably her baseline. Continue to monitor, no changes at this time, restarted on aspirin Pneumonia, history of COPD, managed by primary care team. Improving. Depression post bypass surgery, COPD, started on Zoloft and reporting improvement. Chest pain, musculoskeletal from the incision, appeared to be healing well, leg wound at the site of the vein harvest also is healing well. Continue to monitor Hypertension, borderline hypotension, continue to monitor BP/HR. Hyperlipidemia, on Lipitor, continue to monitor. COPD, acute exacerbation, acute respiratory insufficiency, history of emphysema. Tobaccoism, patient has stopped smoking after her recent hospitalization and bypass surgery, encouraged to continue with smoking cessation Clinical Quality Measures DVT/VTE Risk/Contraindication: Risk Factor Score Per Nursin RFS Level Per Nursing on Admit: 4+=Very High Contraindications-Mechi: Other *list below* Other: PT HAS KWAME IN PLACE ON BILATERAL LOWER LEGS WITH RECENT VEIN HARVESTING AND SCD'S WOULD IMPAIR HEALING SUPA MCMANUS MD Aug 16, 2018 13:44
[2018-08-16 15:54] VITALS: BP 129/60
[2018-08-16 19:53] VITALS: BP 119/59
[2018-08-16] MEDS: SERTRALINE 50 MG (ZOLOFT) TABLET PO SCH (22:23)
[2018-08-16] MEDS: ATORVASTATIN 20 MG (LIPITOR) TABLET PO SCH (22:23)
[2018-08-16 23:15] VITALS: BP 125/57
[2018-08-17] MEDS: oxyCODONE/APAP 5/325MG (PERCOCET 5) TABLET PO PRN ×3 (00:31→13:43)
[2018-08-17] MEDS: RT-ALBUTEROL/IPRATROPIUM 3 ML (DUONEB) VIAL INH SCH ×2 (03:23→09:30)
[2018-08-17] MEDS: ALPRAZolam 0.25 MG (XANAX) TAB PO PRN (03:41)
[2018-08-17 04:32] VITALS: BP 146/68
[2018-08-17] MEDS: TRIM/SULFAMETH 160/800 (SEPTRA DS) TAB PO SCH (06:38)
[2018-08-17] MEDS: MEROPENEM 500 MG in NS (IVPB) 100 ML IV SCH (06:38)
[2018-08-17] MEDS: CATHETER FLUSH 10 ML SYR IV SCH (06:39)
[2018-08-17] MEDS ORDERED: KCL 20 MEQ TAB (K-DUR) PO SCH (07:00)
--- NOTE | 2018-08-17 07:34 | Pulmonary Progress Note ---
Sepsis Event Evaluation Height, Weight, BMI Height: 5'2.00" Weight: 130lbs. 2.0oz. 58.768050gz; 24.9 BMI Method:Stated Exam Exam Vital Signs Date Time Temp Pulse Resp B/P (MAP) Pulse Ox O2 Delivery O2 Flow Rate FiO2 08/17/18 04:32 98.5 88 16 146/68 (94) 96 Nasal Cannula 2.00 08/17/18 03:23 91 Room Air 08/16/18 23:15 98.5 90 16 125/57 (79) 92 Nasal Cannula 2.00 08/16/18 20:00 Room Air 08/16/18 19:59 95 Room Air 08/16/18 19:53 99.0 89 18 119/59 (79) 92 Nasal Cannula 2.00 08/16/18 15:54 99.4 87 16 129/60 (83) 95 Nasal Cannula 2.00 08/16/18 14:44 95 Room Air 08/16/18 08:36 98.7 76 18 124/57 (79) 97 Nasal Cannula 2.00 08/16/18 08:30 97 Room Air 08/16/18 08:26 97 Room Air I & O 08/17/18 07:00 Intake Total 2150 ml Balance 2150 ml Height & Weight Height: 5'2.00" Weight: 130lbs. 2.0oz. 58.720177ym; 24.9 BMI Method:Stated General Appearance: No Apparent Distress, WD/WN, Chronically ill HEENT: Normal ENT Inspection Neck: Full Range of Motion, Normal Inspection, Non Tender, Supple Respiratory: Chest Non Tender, No Accessory Muscle Use, No Respiratory Distress , Crackles, Decreased Breath Sounds Cardiovascular: Regular Rate, Rhythm, No Edema, No Gallop, No JVD, No Murmur, Normal Peripheral Pulses Capillary Refill: Less Than 3 Seconds Gastrointestinal: normal bowel sounds, distended (Mild distension), tenderness (diffuse) Extremity: Normal Capillary Refill, Normal Inspection, Normal Range of Motion Neurologic/Psychiatric: Alert, Oriented x3, No Motor/Sensory Deficits, Normal Mood/Affect Skin: Normal Color, Warm/Dry Lymphatic: No Adenopathy Assessment/Plan Assessment/Plan Dyspnea with hypoxia - improving -Oxygen- -SVNs -Monitor Left Pleural effusion probably secondary to CABG -Monitor COPD with tobacco use (recently stopped smoking) -Out patient work up -Monitor Leukocytosis- improving -Repeat labs today -Antifungal -Monitor close -Merrem CHF CAD with recent CABG 07/31 HTN TATE JACKSON DO Aug 17, 2018 07:34
[2018-08-17 08:00] VITALS: BP 139/63
[2018-08-17 08:05] LABS: BASOPHILS # (AUTO) 0.1 10^3/uL (0.0-0.1); BASOPHILS % (AUTO) 0 % (0-10); EOSINOPHILS # (AUTO) 1.1 10^3/uL (0.0-0.3); EOSINOPHILS % (AUTO) 9 % (0-10); HEMATOCRIT 28 % (35-52); HEMOGLOBIN 8.9 G/DL (11.5-16.0); LYMPHOCYTES # (AUTO) 2.1 X 10^3 (1.0-4.0); LYMPHOCYTES % (AUTO) 18 % (12-44); MEAN CORPUSCULAR HEMOGLOBIN 31 PG (25-34); MEAN CORPUSCULAR HGB CONC 32 G/DL (32-36); MEAN CORPUSCULAR VOLUME 99 FL (80-99); MEAN PLATELET VOLUME 8.8 FL (7.4-10.4); MONOCYTES # (AUTO) 1.2 X 10^3 (0.0-1.0); MONOCYTES % (AUTO) 10 % (0-12); NEUTROPHILS # (AUTO) 7.5 X 10^3 (1.8-7.8); NEUTROPHILS % (AUTO) 63 % (42-75); PLATELET COUNT 586 10^3/uL (130-400); RED BLOOD COUNT 2.85 10^6/uL (4.35-5.85); RED CELL DISTRIBUTION WIDTH 15.5 % (10.0-14.5)
[2018-08-17 08:25] LABS: ALBUMIN 3.4 GM/DL (3.2-4.5); BILIRUBIN,TOTAL 0.2 MG/DL (0.1-1.0); CALCIUM 9.2 MG/DL (8.5-10.1); CREATININE SERUM 1.23 MG/DL (0.60-1.30); MAGNESIUM 1.9 MG/DL (1.8-2.4); PHOSPHORUS 4.4 MG/DL (2.3-4.7); TOTAL PROTEIN 5.9 GM/DL (6.4-8.2)
[2018-08-17] MEDS: NICOTINE 21 MG (NICODERM) PATCH TD SCH (09:07)
[2018-08-17] MEDS: FUROSEMIDE 40 MG (LASIX) TAB PO SCH (09:08)
[2018-08-17] MEDS: lisINopril 5 MG (PRINIVIL) TABLET PO SCH (09:08)
[2018-08-17] MEDS: POLYETHYLENE GLYCOL 17 GM (MIRALAX) PACK PO SCH (09:08)
[2018-08-17] MEDS: ENOXAPARIN 40 MG/0.4 ML (LOVENOX) SYR SC SCH (09:08)
[2018-08-17] MEDS: ASPIRIN 81 MG CHEW (CHILDREN'S ASA) PO SCH (09:08)
[2018-08-17] MEDS: meTOproloL SUCCINATE 50 MG (TOPROL XL) TAB PO SCH (09:08)
[2018-08-17] MEDS: ANIDULAFUNGIN 100 MG/NS 100 ML IV SCH ×2 (09:09)
[2018-08-17] MEDS: NICOTINE PATCH REMOVAL TP SCH (09:09)
[2018-08-17] MEDS ORDERED: LISI-556 PO (10:47)
[2018-08-17] MEDS ORDERED: FLUC150T2 PO (10:47)
[2018-08-17] MEDS ORDERED: AMIO200T4 PO (10:47)
[2018-08-17] MEDS ORDERED: POTA20TA8 PO (10:47)
[2018-08-17] MEDS ORDERED: SERT50TA9 PO (10:47)
[2018-08-17] MEDS ORDERED: POLY17PO31 PO (10:47)
[2018-08-17] MEDS ORDERED: METO-387 PO (10:47)
[2018-08-17] MEDS ORDERED: Trimethoprim/Sulfamethoxazole PO (10:47)
[2018-08-17] MEDS ORDERED: OXYC-471 PO (10:47)
--- NOTE | 2018-08-17 10:52 | D/C HH Face to Face Order ---
D/C Face to Face Orders Instructions for Patient Via [facility], Patient Instructions/FollowUp: pt will need to have a follow up appt with cardiothoracic surgeon in 1 week, dr. bonner in 2 weeks and [facility] to establish as a new patient in 1 week Physician to follow Patient: antonio for 1 week post hospitalization then [facility] clinic Discharge Diet for Home: Avoid Fatty Foods Patient Problems: coronary artery disease, large surgical incision sites bilateral lower legs, hyperlipidemia Patient Data-Allergies,Ht & Wt Patient Allergies: Coded Allergies: No Known Drug Allergies (Unverified , 05/08/15) Height (Feet): 5 Height (Inches): 2.00 Weight (Pounds): 130 Weight (Ounces): 2.0 [facility] Need/Face to Face Date of Face to Face: Aug 17, 2018 Clinical Findings: Generalized weakness and fatigue, Muscle weakness, Non- healing wound (bilateral lower legs with wounds on legs from cabg vein harvesting) I have seen Pt [id number]: Yes Discharged To: Home Diagnosis/Conditions: coronary artery disease, large surgical incision sites bilateral lower legs, hyperlipidemia Patient is Homebound due to: Muscle weakness Homebound Status Due to the above stated illness, injury or surgical procedure (medical condition or diagnosis) and associated clinical findings, the patient is homebound because of his/her inability to leave home except with aid of a supportive device and/or person AND leaving the home requires a considerable and taxing effort or is medically contraindicated. Pt req the following assistanc: Aid of another person Home Health Nursing Orders Home Health Services Order: Nursing Services, Physical Therapy-Evaluate & Treat i am aware of medication interactions with amiodarone, potassium, hernan inhibitor and diflucan and bactrim - these medications were given in hospital and need to be continued desite interactions as she has not had any adverse symptoms and without all of these medications she would be more ill with infection and heart failure. pt has cam in bilateral lower legs - on 08/20/18, the rest of the cam on bilateral lower legs need to be removed with steri strips placed on legs across bilateral leg wounds Home Health Infusion Therapy Line Start Date: Aug 10, 2018 Line Start Time: 1645 Line Type: PICC Site Location: Arm-Upper Therapy Orders Therapy Orders: Physical Therapy Therapy Specific Orders: Eval assistive deivces, Increase strength/endurance Certify Stmt I certify that this patient is under my care and that I, a nurse practitioner or a physician; a outpatient physical therapist assistant working with me, had a face to face encounter that - meets the physician face to face encounter requirements with this patient as dated. MAULIK COLLIER MD Aug 17, 2018 10:52
--- NOTE | 2018-08-17 11:08 | Discharge Summary ---
Diagnosis/Chief Complaint Date of Admission Aug 07, 2018 at 04:39 Date of Discharge Discharge Date: Aug 17, 2018 Discharge Time: 1130 Admission Diagnosis Admission Diagnosis PNEUMONIA - HOSPITAL ACQUIRED ACUTE PULMONARY EDEMA CAD WITH CABG ON 07/28/18 HEART FAILURE POST-OPERATIVELY ELEVATED WHITE COUNT HX OF TOBACCOISM Discharge Diagnosis PNEUMONIA - HOSPITAL ACQUIRED ACUTE PULMONARY EDEMA CAD WITH CABG ON 07/28/18 HEART FAILURE POST-OPERATIVELY ELEVATED WHITE COUNT HX OF TOBACCOISM CANDIDAL PNEUMONIA CONSTIPATION HYPERLIPIDEMIA ANEMIA HYPOKALEMIA Reason Hospital Visit This is a 57-year-old white female who was just discharged yesterday afternoon in preparation for Kathy celebration and placed on adequate antibiotic coverage who presented back to the ER with worsened dyspnea and found to have florid pulmonary edema. Cardiology was consulted and patient was placed back on hospital acquired pneumonia due to recent CABG 07/28/18 and this current set back after DC on Cefdinir. Patient is improved overall and already asking when she can go home. Appreciate Dr Mckenzie's help. Source: patient, family, RN/MD Discharge Summary Consultations DR. MARIETTA BETH Discharge Physical Examination Allergies: Coded Allergies: No Known Drug Allergies (Unverified , 05/08/15) Vitals & I&Os Vital Signs Date Time Temp Pulse Resp B/P (MAP) Pulse Ox O2 Delivery O2 Flow Rate FiO2 08/17/18 08:00 97.8 86 18 139/63 (88) 97 Room Air 0.00 08/15/18 15:30 21 General Appearance: Alert, Oriented X3, Cooperative, No Acute Distress HEENT: Atraumatic, PERRLA Respiratory: Clear to Auscultation, Other Cardiovascular: Regular Rate, Normal S1, Normal S2 Abdominal: Normal Bowel Sounds, No Tenderness, No Hepatosplenomegaly Extremities: No Clubbing, No Cyanosis, Other (MEDIALLY BILATERALLY - VEIN HARVEST SITES C/D/I - KWAME STILL IN PLACE) Skin: No Rashes, No Breakdown, Other (POST-OP CENTRAL CHEST, UPPER ABD - SURGICAL SITES HEALING WELL, BILATERAL MEDIAL LOWER LEGS TO MID-THIGHS - PARTIAL KWAME IN PLACE WITH STERI-STRIPS ACROSS SITES OF OTHER STAPLE REMOVAL WITH SLIGHT ERYTHEMA AROUND LARGE LEG INCISIONS) Neuro: Normal Gait, Cranial Nerves 3-12 NL Psych/Mental Status: Mental Status NL, Mood NL Hospital Course PNEUMONIA - HOSPITAL ACQUIRED ACUTE PULMONARY EDEMA CAD WITH CABG ON 07/28/18 HEART FAILURE POST-OPERATIVELY ELEVATED WHITE COUNT HX OF TOBACCOISM ANEMIA HYPOKALEMIA CONSTIPATION PNEUMONIA - HOSPITAL ACQUIRED WITH ACUTE PULMONARY EDEMA - REPEAT CHEST XRAYS SHOWED IMPROVEMENT IN SYMPTOMS - PT ON ANTIFUNGAL THERAPY SHE HAS POSITIVE SPUTUM CULTURES FOR SHAYLEE. CAD WITH CABG ON 07/28/18 - SUPPORTIVE CARE, DEFER TO DR. MCKENZIE - CONTINUE WITH AMIODARONE 200MG DAILY UNTIL 10/12/18, WILL REFER TO CARDIOTHORACIC SURGERY ON DISCHARGE - SHE HAS KWAME IN LOWER LEGS - THE PT IS DOING WELL WITH PARTIAL STAPLE REMOVAL AND WILL REQUIRE OTHER KWAME REMOVED ON 08/20/[address] IN [address]. SHE MAY NEED FURTHER INVESTIGATION OF LEGS FOR BLOOD FLOW AFTER SHE ADEQUATELY RECOVERS FROM THIS CABG. CONTINUE WITH METOPROLOL, LISINOPRIL AND PLAVIX ON DISCHARGE. RX FOR 30 PERCOCET ON DISCHARGE. HEART FAILURE POST-OPERATIVELY -AND POST-OP PLEURAL EFFUSIONS - IMPROVED ELEVATED WHITE COUNT - PT HAS CHRONICALLY ELEVATED WBC'S IN THE 12 - 15 RANGE, AFTER TREATMENT OF INFECTION - HER WHITE COUNT IS NOW DOWN TO HER USUAL LEVELS. HX OF TOBACCOISM - PT HAS STOPPED SMOKING POST-CABG EMPHYSEMA - CHRONIC - SUPPORTIVE CARE HYPOKALEMIA - RESOLVED WITH POTASSIUM IV CONSTIPATION - IMPROVED WITH MIRALAX. DISCHARGE HOME WITH HOME HEALTH FOR NURSING EVAL OF LEGS, REMOVAL OF KWAME AND THERAPY EVAL. PT WILL NEED TO FOLLOW UP WITH DR. MCKENZIE IN ONE -TWO WEEKS FROM DISCHARGE AND WILL NEED TO ESTABLISH WITH [facility] ON DISCHARGE SHE HAS MORE MEDICAL FINANCIAL BURDEN THAN SHE CAN AFFORD WITH THE COST OF THE NEW MEDICATIONS AND ALL OF THE FOLLOW-UP CARE SHE WILL REQUIRE. I HAVE RECOMMENDED THAT DUE TO THIS BURDEN AND HER INABILITY TO AFFORD MEDICATIONS, SHE NEEDS TO ESTABLISH WITH [facility] FOR THE BENEFITS THAT CAN PROVIDE THE PT. Pending Labs Laboratory Tests 08/17/18 07:54: White Blood Count 12.0, Red Blood Count 2.85, Hemoglobin 8.9, Hematocrit 28, Mean Corpuscular Volume 99, Mean Corpuscular Hemoglobin 31, Mean Corpuscular Hemoglobin Concent 32, Red Cell Distribution Width 15.5, Platelet Count 586, Mean Platelet Volume 8.8, Neutrophils (%) (Auto) 63, Lymphocytes (%) (Auto) 18, Monocytes (%) (Auto) 10, Eosinophils (%) (Auto) 9, Basophils (%) (Auto) 0, Neutrophils # (Auto) 7.5, Lymphocytes # (Auto) 2.1, Monocytes # (Auto) 1.2, Eosinophils # (Auto) 1.1, Basophils # (Auto) 0.1, Sodium Level 137, Potassium Level 4.0, Chloride Level 103, Carbon Dioxide Level 26, Anion Gap 8, Blood Urea Nitrogen 17, Creatinine 1.23, Estimat Glomerular Filtration Rate 45, BUN/ Creatinine Ratio 14, Glucose Level 101, Calcium Level 9.2, Corrected Calcium 9.7 , Phosphorus Level 4.4, Magnesium Level 1.9, Total Bilirubin 0.2, Aspartate Amino Transf (AST/SGOT) 18, Alanine Aminotransferase (ALT/SGPT) 10, Alkaline Phosphatase 23, B-Type Natriuretic Peptide 853.2, Total Protein 5.9, Albumin 3.4 Discharge Condition at discharge IMPROVING Instructions to patient/family Please see electronic discharge instructions given to patient. Discharge Medications Reviewed and agree with Discharge Medication list on patient's Discharge Instruction sheet Clinical Quality Measures DVT/VTE Risk/Contraindication: Risk Factor Score Per Nursin RFS Level Per Nursing on Admit: 4+=Very High Contraindications-Mechi: Other *list below* Other: PT HAS KWAME IN PLACE ON BILATERAL LOWER LEGS WITH RECENT VEIN HARVESTING AND SCD'S WOULD IMPAIR HEALING MAULIK COLLIER MD Aug 17, 2018 11:08
--- NOTE | 2018-08-17 11:52 | NUR ---
DISCHARGE PLANNING: Patient discharging today. She will have some new medications that she will need and new orders for [facility]. She is currently a self pay patient et her has been in contact with our financial services to determine if additional assistance is available. [employer] application has been initiated but will need to bring in additional information for completion. Via [facility] has been notified of new referral [facility]. Visited with patient about assistance with new medication needs. She reports that they will be able to afford $30. Will update her if there is additional cost to determine if they can financial meet that. Addendum: 08/20/18 at 0908 by JOE DREW RN It was determined that [facility] will need to establish with [facility] Provider before home health care can follow the patient. student support services director Jose f/u with [facility] and the patient's finalized pricing for her new medications will be $104. Patient will not be able to afford this cost et so spoke with SANDY BAKER et the PALS program will cover this cost to ensure patient will receive the care that she needs. No further needs identified. Patient was updated et both her and her agree with the above stated plan of care.
[2018-08-17 12:00] VITALS: BP 135/60
--- NOTE | 2018-08-17 13:02 | Cardiology Progress Note ---
Subjective Date Seen by Provider: Aug 17, 2018 Time Seen by Provider: 13:01 Subjective/Events-last exam patient is in bed, feeling better, ready to go home, denied any chest pain, breathing is better Review of Systems General: No Chills, No Night Sweats, No Fatigue, No Malaise, No Appetite, No Other HEENT: No Head Aches, No Visual Changes, No Eye Pain, No Ear Pain, No Dysphasia , No Sinus Congestion, No Post Nasal Drip, No Sore Throat, No Other Pulmonary: Dyspnea; No Cough, No Pleuritic Chest Pain, No Other Cardiovascular: No: Chest Pain, Palpitations, Orthopnea, Paroxysmal Noc. Dyspnea, Edema, Lt Headedness, Other Objective-Cardiology Exam Last Set of Vital Signs Vital Signs 08/15/18 15:30 FiO2 21 Capillary Refill : Less Than 3 SecondsLess Than 3 Seconds I&O Intake and Output 08/17/18 00:00 Intake Total 2350 ml Balance 2350 ml Intake Oral 1850 ml IV Total 500 ml # Voids 13 # Bowel Movements 5 General: Alert, Oriented X3, Cooperative, No Acute Distress HEENT: Atraumatic, PERRLA Neck: Supple, No JVD Lungs: Clear to Auscultation, Other Heart: Regular Rate, Normal S1, Normal S2 Abdomen: Normal Bowel Sounds, No Tenderness, No Hepatosplenomegaly Extremities: No Clubbing, No Cyanosis, Other (MEDIALLY BILATERALLY - VEIN HARVEST SITES C/D/I - KWAME STILL IN PLACE) Skin: No Rashes, No Breakdown, Other (POST-OP CENTRAL CHEST, UPPER ABD - SURGICAL SITES HEALING WELL, BILATERAL MEDIAL LOWER LEGS TO MID-THIGHS - PARTIAL KWAME IN PLACE WITH STERI-STRIPS ACROSS SITES OF OTHER STAPLE REMOVAL WITH SLIGHT ERYTHEMA AROUND LARGE LEG INCISIONS) Neuro: Normal Gait, Cranial Nerves 3-12 NL Psych/Mental Status: Mental Status NL, Mood NL Results Lab Laboratory Tests 08/17/18 07:54 A/P-Cardiology Admission Diagnosis Congestive heart failure Pneumonia Coronary artery disease Hypertension Assessment/Plan Congestive heart failure, echocardiogram showed preserved left ventricular systolic function, improved, okay for discharge and follow-up as an outpatient Abdominal pain, constipation,resolved. Pleural effusion secondary to CABG. Continue on diuretics and monitor. Coronary artery disease, status post myocardial infarction occurred early in July 2018, had CABG 4 done on July 30, 2018 in [place] and she was discharged and drove back to [place]. Troponin is negative. EKG showed diffuse T-wave inversion, probably her baseline. Continue to monitor, no changes at this time, restarted on aspirin, follow-up as an outpatient Pneumonia, history of COPD, managed by primary care team, better at this time, managed by primary care physician Depression post bypass surgery, COPD, started on Zoloft and reporting improvement. Chest pain, musculoskeletal from the incision, appeared to be healing well, leg wound at the site of the vein harvest also is healing well. Continue to monitor Hypertension, borderline hypotension, continue to monitor BP/HR. Hyperlipidemia, on Lipitor, continue to monitor. COPD, acute exacerbation, acute respiratory insufficiency, history of emphysema. Tobaccoism, patient has stopped smoking after her recent hospitalization and bypass surgery, encouraged to continue with smoking cessation Clinical Quality Measures DVT/VTE Risk/Contraindication: Risk Factor Score Per Nursin RFS Level Per Nursing on Admit: 4+=Very High Contraindications-Mechi: Other *list below* Other: PT HAS KWAME IN PLACE ON BILATERAL LOWER LEGS WITH RECENT VEIN HARVESTING AND SCD'S WOULD IMPAIR HEALING SUPA MCMANUS MD Aug 17, 2018 13:02
[2018-08-17] MEDS ORDERED: MEROPENEM 500 MG in NS (IVPB) 100 ML IV SCH (14:00)
[2018-08-17 14:35] VITALS: BP 135/60
== END 2018-08-17 14:10 | disposition home health service (06) | DRG 280 ==
LOC: EDUNIT# 03:00 → ER 03:02 → ICU 04:39 → 4TH 08-09 10:45
PROVIDERS: ADMIT Internal Medicine; ATTEND Internal Medicine
DX: I97.130 Postprocedural heart failure following cardiac surgery (principal); I50.21 Acute systolic (congestive) heart failure; B37.1 Pulmonary candidiasis; J18.1 Lobar pneumonia, unspecified organism; I21.9 Acute myocardial infarction, unspecified; I25.5 Ischemic cardiomyopathy; I50.1 Left ventricular failure, unspecified; J90 Pleural effusion, not elsewhere classified; G89.18 Other acute postprocedural pain; J43.9 Emphysema, unspecified; I11.0 Hypertensive heart disease with heart failure; E78.5 Hyperlipidemia, unspecified; I25.10 Atherosclerotic heart disease of native coronary artery without angina pectoris; D72.823 Leukemoid reaction; D64.9 Anemia, unspecified; Z95.1 Presence of aortocoronary bypass graft; Z87.891 Personal history of nicotine dependence; E87.6 Hypokalemia; R09.02 Hypoxemia; F32.9 Major depressive disorder, single episode, unspecified; R06.89 Other abnormalities of breathing; E87.70 Fluid overload, unspecified; K59.03 Drug induced constipation; Z91.19 Patient's noncompliance with other medical treatment and regimen; T40.2X5A Adverse effect of other opioids, initial encounter
CPT/HCPCS: 36415; 36569; 51702; 71045; 71046; 74018; 74019; 76604; 76937; 80053; 80202; 81000; 82150; 82962; 83605; 83690; 83735; 83880; 84100; 84484; 85007; 85025; 85027; 85610; 85730; 87040; 87070; 87106; 87205; 87804; 93005; 93041; 93306; 93880; 94640; 94664; 94760; 96365; 96375

== ENCOUNTER 2018-08-23 04:04 | Emergency (ER) | payer SELFPAY ==
[~2018-08-23] VITALS: Ht 157.5 cm; Wt 60.8 kg
[~2018-08-23 04:04] MED LIST changes: +AMIO200T4 PO; +ATOR20TA66 PO; +CEPH250C PO; +CLOP75TA28 PO; +FAMO20TA5 PO; +FLUC150T2 PO; +FURO20TA4 PO; +LISI-556 PO; +METO-387 PO; +NICO-588 TD; +OXYC-471 PO; +POLY17PO31 PO; +POTA10TA10 PO; +POTA20TA8 PO; +SERT50TA9 PO; +Trimethoprim/Sulfamethoxazole PO
[2018-08-23 04:42] LABS: BASOPHILS # (AUTO) 0.1 10^3/uL (0.0-0.1); BASOPHILS % (AUTO) 1 % (0-10); EOSINOPHILS # (AUTO) 0.8 10^3/uL (0.0-0.3); EOSINOPHILS % (AUTO) 6 % (0-10); HEMATOCRIT 30 % (35-52); HEMOGLOBIN 9.7 G/DL (11.5-16.0); LYMPHOCYTES # (AUTO) 3.2 X 10^3 (1.0-4.0); LYMPHOCYTES % (AUTO) 22 % (12-44); MEAN CORPUSCULAR HEMOGLOBIN 31 PG (25-34); MEAN CORPUSCULAR HGB CONC 33 G/DL (32-36); MEAN CORPUSCULAR VOLUME 97 FL (80-99); MEAN PLATELET VOLUME 9.2 FL (7.4-10.4); MONOCYTES # (AUTO) 1.4 X 10^3 (0.0-1.0); MONOCYTES % (AUTO) 9 % (0-12); NEUTROPHILS # (AUTO) 9.2 X 10^3 (1.8-7.8); NEUTROPHILS % (AUTO) 63 % (42-75); PLATELET COUNT 512 10^3/uL (130-400); RED BLOOD COUNT 3.08 10^6/uL (4.35-5.85); RED CELL DISTRIBUTION WIDTH 14.9 % (10.0-14.5); WHITE BLOOD COUNT 14.7 10^3/uL (4.3-11.0)
--- NOTE | 2018-08-23 04:42 | ED General ---
General Chief Complaint: Trauma-Non Activation Stated Complaint: FALL AT HOME,TAILBONE HURTS Nursing Triage Note: PT STATES SHE FELL MONDAY NIGHT AROUND 2100. PRESENTS TO THE ED TODAY COMPLAINING OF INCREASING PAIN IN HER TAILBONE THAT WORSENS WITH AMBULATION Nursing Sepsis Screen: No Definite Risk Source of Information: Patient, Old Records History of Present Illness Date Seen by Provider: Aug 23, 2018 Time Seen by Provider: 04:30 Initial Comments PT ARRIVES VIA POV FROM HOME/SISTER'S APARTMENT PT C/O PAIN TO TAILBONE STATES SHE WAS BACKING INTO A RECLINER AND LOST HER BALANCE AND FELL BACK, HITTING HER TAILBONE ON THE ARM OF THE CHAIR THIS OCCURRED Monday08/21/18 AT SISTER'S APARTMENT C/O CONTINUED PAIN NO PROBLEMS WITH BOWEL OR BLADDER FUNCTION NO PARESTHESIAS OR MOTOR DEFICITS. HAS BEEN WALKING FINE. HAS NOT SOUGHT CARE UNTIL NOW SYMPTOMS NO DIFFERENT AT THIS TIME TOOK PERCOCET TONIGHT FOR PAIN PT HAD RECENT [place] AND CABG ON 07/30/18 IN [place]--PT STATES SHE WAS THERE VISITING/LIVING THERE WHILE WAS WORKING THERE. PT STATES SHE IS LIVING BACK HERE NOW. PT WAS ADMITTED HERE 08/05-08/06 FOR PNEUMONIA, AFTER DRIVING STRAIGHT HERE TO THE HOSPITAL AFTER BEING RELEASED FROM THE HOSPITAL IN [place] PT WAS RE-ADMITTED HERE 08/07/18 -08/17/18 FOR PULMONARY EDEMA, PNEUMONIA. SPUTUM GREW OUT SHAYLEE PT STATES SHE IS STILL ON ANTIBIOTICS--STATES SHE IS TAKING BACTRIM WAS DISMISSED WITH RX FOR #30 PERCOCET PT STATES SHE STILL HAS A BAD COUGH, WITH OCCASIONAL JASSO SPUTUM HAS MILD SHORTNESS OF BREATH STILL. NO CHEST PAIN NO SWELLING IN LEGS/ FEET. STATES OVERALL SHE IS MUCH BETTER THAN SHE WAS WHEN SHE WAS FIRST ADMITTED TO THE HOSPITAL. PT IS UNAWARE THAT SHE HAS HAD FEVER. TEMP IS OVER 100 ON ARRIVAL HERE TONIGHT. PT STATES SHE HAS MULTIPLE FOLLOW UP APPOINTMENTS IN NEAR FUTURE WITH MULTIPLE PHYSICIANS: DR. MULLIGAN, CV SURGEON IN [place], DR. MCMANUS FOR CARDIOLOGY, DR. JACKSON FOR PULMONOLOGY, [facility] [place]. Allergies and Home Medications Allergies Coded Allergies: No Known Drug Allergies (Unverified , 08/23/18) Home Medications Amiodarone HCl 200 Mg Tablet, 1 TAB PO UD TAKE 1 TAB DAILY UNTIL 10-21-18 Prescribed by: MAULIK COLLIER on 08/17/181046 Aspirin 81 Mg Tab.chew, 81 MG PO DAILY Prescribed by: SARABJIT EATON on 08/06/18 111 Atorvastatin Calcium 20 Mg Tablet, 20 MG PO HS, (Reported) Clindamycin HCl 300 Mg Capsule, 300 MG PO QID Prescribed by: LATONIA BOUCHER on 08/23/18 0608 Clopidogrel Bisulfate 75 Mg Tablet, 75 MG PO DAILY, (Reported) Fluconazole 150 Mg Tablet, 150 MG PO DAILY Prescribed by: MAULIK COLLIER on 08/17/18 104 Furosemide 20 Mg Tablet, 20 MG PO DAILY, (Reported) 7 DAY THERAPY FILLED 08-03-18 Lisinopril 5 Mg Tablet, 5 MG PO DAILY Prescribed by: MAULIK COLLIER on 08/17/18 104 Melatonin 5 Mg Capsule, 5 MG PO HS PRN for SLEEP, (Reported) Metoprolol Succinate 25 Mg Tab.er.24h, 25 MG PO DAILY Prescribed by: MAULIK COLLIER on 08/17/18 104 Mupirocin 1 Gm Oin.pf.jerald, 1 GM TP BID Prescribed by: LATONIA BOUCHER on 08/23/18 06 Nicotine 1 Each Patch.td24, 21 MG TD DAILY, (Reported) Oxycodone HCl/Acetaminophen 1 Each Tablet, 1 TAB PO Q4H PRN for PAIN-MODERATE Prescribed by: MAULIK COLLIER on 08/17/18 104 Polyethylene Glycol 3350 17 Gm Powd.pack, 17 GM PO BID Prescribed by: MAULIK COLLIER on 08/17/18 104 Potassium Chloride 20 Meq Tab.er.prt, 20 MEQ PO DAILY@0700 Prescribed by: MAULIK COLLIER on 08/17/18 104 Sertraline HCl 50 Mg Tablet, 50 MG PO HS Prescribed by: MAULIK COLLIRE on 08/17/18 104 [Trimethoprim/Sulfamethoxazole] 1 EA TAB, 1 EA PO BID WITH MEALS Prescribed by: MAULIK COLLIER on 08/17/18 104 Patient Home Medication List Home Medication List Reviewed: Yes Review of Systems Review of Systems Constitutional: see HPI Respiratory: see HPI, cough, short of breath Cardiovascular: no symptoms reported; No chest pain, No edema Gastrointestinal: no symptoms reported; No nausea, No vomiting Genitourinary: no symptoms reported Musculoskeletal: see HPI, back pain (TAILBONE) Skin: no symptoms reported Psychiatric/Neurological: No Symptoms Reported Hematologic/Lymphatic: No Symptoms Reported Immunological/Allergic: no symptoms reported Past Lmxbpqz-Hivona-Skbvar Hx Patient Social History Alcohol Use: Denies Use Recreational Drug Use: No Smoking Status: Former Smoker (1 PPD) Type Used: Cigarettes Former Smoker, Quit: Jul 22, 2018 Recent Foreign Travel: No Contact w/Someone Who Travel: No Recent Infectious Disease Expo: No Recent Hopitalizations: No Physical Abuse: No Sexual Abuse: No Mistreated: No Fear: No Immunizations Up To Date Tetanus Booster (TDap): Unknown PED Vaccines UTD: Yes Date of Pneumonia Vaccine: Jul 17, 2017 Date of Influenza Vaccine: Aug 03, 2018 Seasonal Allergies Seasonal Allergies: No Past Medical History Surgeries: Yes (CARPAL TUNNEL, OPEN HEART-4 VESSEL CABG 07/30/18) Cardiac, CABG, Hysterectomy, Oophorectomy, Open Heart Surgery, Orthopedic Respiratory: Yes Asthma, Pneumonia, COPD Currently Using CPAP: No Currently Using BIPAP: No Cardiac: Yes ([place] 07/2018 WITH 4 VESSEL CABG 07/30/18) Coronary Artery Disease, Heart Attack, High Cholesterol, Hypertension Neurological: No : No Female 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 Disorders: 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 Genitourinary: No Gastrointestinal: No Musculoskeletal: Yes (PSORIATIC ARTHRITIS) Degenerate Disk Disease, Arthritis, Chronic Back Pain Endocrine: No HEENT: No (EDENTULOUS) Cancer: No Psychosocial: No Integumentary: Yes Psoriasis Blood Disorders: Yes (POST OP ANEMIA 07/2018--4 UNITS OF BLOOD POST OP) Adverse Reaction/Blood Tranf: No Family Medical History No Pertinent Family Hx Physical Exam Vital Signs Vital Signs - First Documented 08/23/18 04:10 Temp 100.2 Pulse 20 Resp 20 B/P (MAP) 135/84 (101) Pulse Ox 97 O2 Delivery Room Air Capillary Refill : Less Than 3 Seconds Height, Weight, BMI Height: 5'2.00" Weight: 134lbs. 2.0oz. [id number]; 24.9 BMI Method:Stated General Appearance: Thin, Other (TALKING NON-STOP, LAUGHING WITH SISTER, WITHOUT DIFFICULTY. REEKS OF CIGARETTES. PT WITH CONSTANT MOVEMENTS OF ENTIRE BODY. PT WALKS UPRIGHT AND MOVES QUICKLY WITHOUT DIFFICULTY. ROLLS OVER QUICKLY- -HAS PAIN IN TAILBONE AREA WITH LAYING FLAT ON BACK. ) HEENT: PERRL/EOMI, Other (POOR DENTITION, MULTIPLE MISSING TEETH. ) Neck: Normal Inspection Respiratory: Normal Breath Sounds, No Accessory Muscle Use Cardiovascular: Regular Rate, Rhythm, No Edema, No Murmur Gastrointestinal: Non Tender, Soft Back: No CVA Tenderness, Other (TENDERNESS TO SACRUM/COCCYX AREA. NO BRUISING NOTED TO AREA AT THIS TIME. ) Extremity: Normal Capillary Refill, No Pedal Edema, Other (LEG INCISIONS WITH MULTIPLE AREAS OF SCABS, WITH PATCHES OF DRIED SEROSANGUINOUS DRAINAGE ON BANDAIDS. WOUNDS TO MEDIAL ASPECT OF LEFT THIGH WITH MODERATE SURROUNDING ERYTHEMA AND INURATION. WITH SEVERAL OTHER SMALLER / MILDER AREAS OF ERYTHEMA AND MILDER INDURATION TO WOUNDS IN LOWER LEFT LEG, AND MEDIAL RIGHT KNEE AREA. 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 CHEST INCISION HEALING WELL WITH NO SIGNS OF INFECTION; SORES/SCABS/SCARS TO FACE, ARMS AND LEGS. WELL MULTIPLE PSORIATIC PLAQUES NOTED. HAS OLD BRUISES TO ABDOMEN. ) Focused Exam Lactate Level 08/23/18 04:30: Lactic Acid Level 1.04 Lactic Acid Level Laboratory Tests Test 08/23/18 04:30 Lactic Acid Level 1.04 MMOL/L (0.50-2.00) Progress/Results/Core Measures Suspected Sepsis Recent Fever Within 48 Hours: No Infection Criteria Present: Suspected New Infection New/Unexplained Altered Menta: No Sepsis Screen: No Definite Risk SIRS Temperature:100.2 Pulse: 20 Respiratory Rate: 20 Laboratory Tests 08/23/18 04:30: White Blood Count 14.7H Blood Pressure 135 /84 Mean: 101 08/23/18 04:30: Lactic Acid Level 1.04 Laboratory Tests 08/23/18 04:30: Creatinine 1.96H, INR Comment 1.0, Platelet Count 512H, Total Bilirubin 0.2 Results/Orders Lab Results Laboratory Tests Test 08/23/18 04:30 08/23/18 04:42 Range/Units White Blood Count 14.7 H 4.3-11.0 10^3/uL Red Blood Count 3.08 L 4.35-5.85 10^6/uL Hemoglobin 9.7 L 11.5-16.0 G/DL Hematocrit 30 L 35-52 % Mean Corpuscular Volume 97 80-99 FL Mean Corpuscular Hemoglobin 31 25-34 PG Mean Corpuscular Hemoglobin Concent 33 32-36 G/DL Red Cell Distribution Width 14.9 H 10.0-14.5 % Platelet Count 512 H 130-400 10^3/uL Mean Platelet Volume 9.2 7.4-10.4 FL Neutrophils (%) (Auto) 63 42-75 % Lymphocytes (%) (Auto) 22 12-44 % Monocytes (%) (Auto) 9 0-12 % Eosinophils (%) (Auto) 6 0-10 % Basophils (%) (Auto) 1 0-10 % Neutrophils # (Auto) 9.2 H 1.8-7.8 X 10^3 Lymphocytes # (Auto) 3.2 1.0-4.0 X 10^3 Monocytes # (Auto) 1.4 H 0.0-1.0 X 10^3 Eosinophils # (Auto) 0.8 H 0.0-0.3 10^3/uL Basophils # (Auto) 0.1 0.0-0.1 10^3/uL Neutrophils % (Manual) 67 % Lymphocytes % (Manual) 14 % Monocytes % (Manual) 11 % Eosinophils % (Manual) 5 % Basophils % (Manual) 0 % Band Neutrophils 1 % Hypersegmented Neutrophils SLIGHT Reactive Lymphocytes 2 % Toxic Granulation 1+ Polychromasia SLIGHT Anisocytosis SLIGHT Prothrombin Time 13.1 12.2-14.7 SEC INR Comment 1.0 0.8-1.4 Activated Partial Thromboplast Time 39 H 24-35 SEC Sodium Level 134 L 135-145 MMOL/L Potassium Level 5.9 H 3.6-5.0 MMOL/L Chloride Level 104 98-107 MMOL/L Carbon Dioxide Level 19 L 21-32 MMOL/L Anion Gap 11 5-14 MMOL/L Blood Urea Nitrogen 16 7-18 MG/DL Creatinine 1.96 H 0.60-1.30 MG/DL Estimat Glomerular Filtration Rate 26 BUN/Creatinine Ratio 8 Glucose Level 104 70-105 MG/DL Lactic Acid Level 1.04 0.50-2.00 MMOL/L Calcium Level 9.5 8.5-10.1 MG/DL Corrected Calcium 9.6 8.5-10.1 MG/DL Magnesium Level 2.3 1.8-2.4 MG/DL Total Bilirubin 0.2 0.1-1.0 MG/DL Aspartate Amino Transf (AST/SGOT) 22 5-34 U/L Alanine Aminotransferase (ALT/SGPT) 12 0-55 U/L Alkaline Phosphatase 37 L 40-136 U/L B-Type Natriuretic Peptide 935.6 H <100.0 PG/ML Total Protein 6.6 6.4-8.2 GM/DL Albumin 3.9 3.2-4.5 GM/DL Urine Color YELLOW Urine Clarity CLEAR Urine pH 7 5-9 Urine Specific Jean 1.005 L 1.016-1.022 Urine Protein NEGATIVE NEGATIVE Urine Glucose (UA) NEGATIVE NEGATIVE Urine Ketones NEGATIVE NEGATIVE Urine Nitrite NEGATIVE NEGATIVE Urine Bilirubin NEGATIVE NEGATIVE Urine Urobilinogen NORMAL NORMAL MG/DL Urine Leukocyte Esterase NEGATIVE NEGATIVE Urine RBC (Auto) NEGATIVE NEGATIVE Urine RBC NONE /HPF Urine WBC RARE /HPF Urine Squamous Epithelial Cells RARE /HPF Urine Crystals NONE /LPF Urine Bacteria NEGATIVE /HPF Urine Casts NONE /LPF Urine Mucus NEGATIVE /LPF Urine Culture Indicated NO Urine Opiates Screen NEGATIVE NEGATIVE Urine Oxycodone Screen POSITIVE H NEGATIVE Urine Methadone Screen NEGATIVE NEGATIVE Urine Propoxyphene Screen NEGATIVE NEGATIVE Urine Barbiturates Screen NEGATIVE NEGATIVE Ur Tricyclic Antidepressants Screen NEGATIVE NEGATIVE Urine Phencyclidine Screen NEGATIVE NEGATIVE Urine Amphetamines Screen NEGATIVE NEGATIVE Urine Methamphetamines Screen NEGATIVE NEGATIVE Urine Benzodiazepines Screen NEGATIVE NEGATIVE Urine Cocaine Screen NEGATIVE NEGATIVE Urine Cannabinoids Screen NEGATIVE NEGATIVE Micro Results Microbiology 08/23/18 Influenza Types A,B Antigen (MARCY) - Final, Complete My Orders Orders - LATONIA BOUCHER DO Saline Lock/Iv-Start (08/23/18 04:25) Monitor-Rhythm Ecg Trace Only (08/23/18 04:25) Cbc With Automated Diff (08/23/18 04:25) Comprehensive Metabolic Panel (08/23/18 04:25) Lactic Acid Analyzer (08/23/18 04:25) Ua Culture If Indicated (08/23/18 04:25) Blood Culture (08/23/18 04:25) Influenza A And B Antigens (08/23/18 04:25) Pelvis (08/23/18 04:25) Ct Lumbar Spine Wo (08/23/18 04:33) Chest Pa/Lat (2 View) (08/23/18 04:33) BNP (08/23/18 04:33) Drug Screen Stat (Urine) (08/23/18 04:33) Magnesium (08/23/18 04:33) Protime With Inr (08/23/18 04:33) Partial Thromboplastin Time (08/23/18 04:33) Ct Pelvis Wo (08/23/18 04:33) Straight Cath For Spec.-Adult (08/23/18 04:33) Manual Differential (08/23/18 04:30) Saline Lock/Iv-Start (08/23/18 05:24) Ns Iv 1000 Ml (Sodium Chloride 0.9%) (08/23/18 05:24) Furosemide Injection (Lasix Injection) (08/23/18 05:30) Clindamycin 900 Mg/50 Ml Ivpb (Cleocin P (08/23/18 06:00) Clindamycin 900 Mg/50 Ml Ivpb (Cleocin P (08/23/18 06:12) Medications Given in ED Current Medications Medications Dose Ordered Sig/Lance Route Start Time Stop Time Status Last Admin Dose Admin Clindamycin Phosphate/Dextrose 50 ml @ 100 mls/hr ONCE ONCE IV 08/23/18 06:00 08/23/18 06:29 DC 08/23/18 06:03 100 MLS/HR Furosemide 80 mg ONCE ONCE IVP 08/23/18 05:30 08/23/18 05:31 DC 08/23/18 05:42 80 MG Sodium Chloride 1,000 ml @ 0 mls/hr Q0M ONCE IV 08/23/18 05:24 08/23/18 05:25 DC 08/23/18 05:42 1,000 MLS/HR Vital Signs/I&O 08/23/18 08/23/18 04:10 05:59 Temp 100.2 99.5 Pulse 20 87 Resp 20 20 B/P (MAP) 135/84 (101) 130/56 Pulse Ox 97 98 O2 Delivery Room Air Room Air Capillary Refill : Less Than 3 Seconds Blood Pressure Mean: 101 Diagnostic Imaging Comments CXR--NO ACUTE PROCESS, RESOLVED LEFT PLEURAL EFFUSION, PERSISTENT CHANGE RIGHT BASE XRAYS PELVIS--NO ACUTE PROCESS PER RADIOLOGIST REPORTS @ 0540 CT PELVIS--MILD IRREGULARITY OF SACRAL-COCCYGEAL AREA, POSSIBLE SUBTLE FRACTURE. SMALL AMOUNT OF GAS IN BLADDER, POSSIBLY RELATED TO PRIOR BLADDER CATHETERIZATION--PER [facility] VIA FAX @ 2984 CT LUMBAR SPINE--NO ACUTE PROCESS, SEVERE LEFT NEURAL FORAMINAL NARROWING L5-S1 SECONDARY TO DISC OSTEOPHYTE COMPLEX--PER [facility] VIA FAX AT 1560 Reviewed: Reviewed by Me Departure Communication (Admissions) 0600--SPOKE WITH DR. JERONIMO, WILL SWITCH ANTIBIOTICS TO CLINDAMYCIN. WILL SEE PT IN OFFICE THIS WEEK TO RECHECK LAB AND WOUNDS. Impression Primary Impression: Status post fall Additional Impressions: Fracture, sacrum/coccyx WOUND INFECTION WITH LOCAL CELLULITIS OF SURGICAL LEG WOUNDS Renal insufficiency MILD HYPERKALEMIA Disposition: HOME, SELF-CARE Condition: Stable Departure-Patient Inst. Referrals: [facility] (PCP) Primary Care Physician LAUREN BAIRD (Family) Primary Care Physician Patient Instructions: Coccyx Fracture (DC), How to Prevent Surgical Site Infections, Hyperkalemia (DC), Preventing Falls in the Older Adult, Renal Function Panel, Surgical Wound (DC), Wound Infection Add. Discharge Instructions: CLEAN WOUNDS TWICE A DAY WITH HIBICLENS AND APPLY ANTIBIOTIC OINTMENT AND FRESH DRESSING TWICE A DAY. KEEP WOUNDS CLEAN AND DRY TAKE YOUR PERCOCET NEEDED FOR PAIN "DONUT" CUSHION FOR COMFORT FINISH BACTRIM, AND ALSO ADD CLINDAMYCIN ANTIBIOTIC DAILY INCREASE YOUR LASIX ( FUROSEMIDE) TO TWICE A DAY FOR THE NEXT 2 DAYS, THEN GO BACK TO ONCE A DAY. FOLLOW UP WITH [facility] THIS WEEK FOR FURTHER CARE All discharge instructions reviewed with patient and/or family. Voiced understanding. Scripts Clindamycin HCl (Clindamycin HCl) 300 Mg Capsule 300 MG PO QID for FOR INFECTION, #40 CAP Prov: LATONIA BOUCHER DO 08/23/18 Mupirocin (Mupirocin) 1 Gm Oin.pf.jerald 1 GM TP BID, #22 TUBE Prov: LATONIA BOUCHER DO 08/23/18 LATONIA BOUCHER DO Aug 23, 2018 04:42
[2018-08-23 04:54] LABS: PROTHROMBIN TIME PATIENT 13.1 SEC (12.2-14.7)
[2018-08-23 04:56] LABS: BILIRUBIN,URINE NEGATIVE (NEGATIVE); CLARITY,URINE CLEAR; COLOR,URINE YELLOW; GLUCOSE, URINE (UA) NEGATIVE (NEGATIVE); KETONES,URINE NEGATIVE (NEGATIVE); LEUKOCYTE ESTERASE ,URINE NEGATIVE (NEGATIVE); NITRITE,URINE NEGATIVE (NEGATIVE); PH,URINE 7 (5-9); PROTEIN,URINE NEGATIVE (NEGATIVE); UROBILINOGEN,URINE NORMAL (NORMAL)
[2018-08-23 05:01] LABS: BAND NEUTROPHILS 1 %; LYMPHOCYTES % (MANUAL) 14 %; NEUTROPHILS % (MANUAL) 67 %
[2018-08-23 05:02] LABS: ANISOCYTOSIS SLIGHT; BASOPHILS % (MANUAL) 0 %; EOSINOPHILS % (MANUAL) 5 %; HYPERSEGMENTED NEUT SLIGHT; MONOCYTES % (MANUAL) 11 %; POLYCHROMASIA SLIGHT; REACTIVE LYMPHOCYTES 2 %; TOXIC GRANULATION/VACUOLAZATIO 1+
[2018-08-23 05:03] LABS: BACTERIA,URINE NEGATIVE /HPF; SQUAMOUS EPITHELIAL CELL,UR RARE /HPF; WBC,URINE RARE /HPF
[2018-08-23 05:09] LABS: ALBUMIN 3.9 GM/DL (3.2-4.5); BILIRUBIN,TOTAL 0.2 MG/DL (0.1-1.0); CALCIUM 9.5 MG/DL (8.5-10.1); CREATININE SERUM 1.96 MG/DL (0.60-1.30); MAGNESIUM 2.3 MG/DL (1.8-2.4); POTASSIUM 5.9 MMOL/L (3.6-5.0); TOTAL PROTEIN 6.6 GM/DL (6.4-8.2)
[2018-08-23 05:10] LABS: AMPHETAMINE SCREEN, URINE NEGATIVE (NEGATIVE); BARBITURATE SCREEN URINE NEGATIVE (NEGATIVE); BENZODIAZEPINES SCREEN URINE NEGATIVE (NEGATIVE); CANNABINOID SCREEN, URINE NEGATIVE (NEGATIVE); COCAINE SCREEN URINE NEGATIVE (NEGATIVE); METHADONE STAT NEGATIVE (NEGATIVE); METHAMPHETAMINE SCREEN URINE S NEGATIVE (NEGATIVE); OPIATE SCREEN URINE NEGATIVE (NEGATIVE); OXYCODONE STAT POSITIVE (NEGATIVE); PROPOXYPHENE STAT NEGATIVE (NEGATIVE); TRICYCLIC ANTIDEPRESSANTS SCRE NEGATIVE (NEGATIVE)
[2018-08-23] MEDS ORDERED: NS IV 1000 ML 1,000 ML IV ONE (05:24)
--- NOTE | 2018-08-23 05:26 | Diagnostic Imaging Report ---
INDICATION: Fall. Pelvic pain. COMPARISON: None FINDINGS: A single AP view of the pelvis was performed. There is no radiographic evidence of acute fracture or dislocation. Pubic symphysis is within normal limits. SI joints are symmetric. Proximal femurs are intact, bilaterally. The femoro-acetabular joint spaces appear maintained on this single frontal view. Remainder of the bony pelvis is intact as well. No unexpected radiopaque foreign bodies are seen. Included small bowel loops are nondistended. Impression: 1. No radiographic evidence of acute fracture or dislocation of the bony pelvis. Dictated by: Dictated on workstation # [id number]
[2018-08-23] MEDS ORDERED: FUROSEMIDE 40 MG/4 ML INJ (LASIX) IVP ONE (05:30)
--- NOTE | 2018-08-23 05:30 | Diagnostic Imaging Report ---
INDICATION: Recent fall. Pain. COMPARISON: 08/16/2018 FINDINGS: Frontal and lateral radiographic views of the chest were obtained and show interval clearing of left-sided effusion. There is persistent focal eventration of the right hemidiaphragm. There is no large effusion, pneumothorax, nor focal consolidation on today's exam. Cardiac silhouette and pulmonary vasculature are within normal limits. Sternotomy wires are noted. Bony structures show no gross acute abnormalities. IMPRESSION: 1. No acute cardiopulmonary process. Dictated by: Dictated on workstation # [id number]
[2018-08-23] MEDS ORDERED: CLINDAMYCIN 900 MG/50 ML IVPB 50 ML IV ONE ×2 (06:00→06:12)
[2018-08-23] MEDS ORDERED: CLIN300C11 PO (06:08)
[2018-08-23] MEDS ORDERED: MUPI1OIN6 TP (06:08)
[2018-08-23 07:00] VITALS: BP 110/62
--- NOTE | 2018-08-23 07:10 | Diagnostic Imaging Report ---
PROCEDURE: CT pelvis without contrast. TECHNIQUE: Multiple contiguous axial images were obtained through the pelvis without the use of intravenous contrast. Sagittal and coronal reformations were performed. INDICATION: Fell on Monday, complaining of increasing pain in tailbone region worsening with ambulation. EXAMINATION: CT of the pelvis without contrast dated 08/23/2018 FINDINGS: There is angulation of the distal sacrum/coccyx with irregularity also noted. These findings are most consistent with fracture although age indeterminate. There is point tenderness and given the recent fall and pain this is likely acute. Additionally there is mild soft tissue stranding in the region. More proximal sacrum intact. Visualized lower lumbar region demonstrates no acute abnormality with degenerative findings noted. Sclerosis and mild subchondral cystic change seen at the sacroiliac joints bilaterally. There are degenerative findings seen in both hips. No other acute fractures identified. The intrapelvic structures demonstrate atherosclerotic disease, diverticulosis without evidence for diverticulitis. The appendix contains appendicoliths but there is no surrounding inflammatory change. Small amount of air noted in the urinary bladder which could be iatrogenic although cystitis could cause a similar appearance, correlate clinically. A fat-containing intra-abdominal wall hernia also noted. IMPRESSION: 1. Suspected acute fracture of the distal sacrum/coccyx with surrounding soft tissue prominence/swelling. 2. Anterior abdominal wall hernia containing fat. 3. Appendicoliths noted but no evidence for acute appendicitis. 3. Air in the urinary bladder see above discussion. Pertinent findings agree with the preliminary report. Dictated by: Dictated on workstation # [id number]
--- NOTE | 2018-08-23 07:14 | Diagnostic Imaging Report ---
PROCEDURE: CT lumbar spine without contrast. TECHNIQUE: Multiple contiguous axial images were obtained through the lumbar spine without the use of intravenous contrast. Sagittal and coronal reformations were then performed. INDICATION: Fell on Monday, complaining of pain in tailbone region worsening with ambulation. EXAMINATION: CT of the lumbar spine 08/23/2018 Findings: There is normal height and alignment of the vertebral bodies. No fractures identified. Soft tissues not as well evaluated due to the bone algorithm technique although on soft tissue windows visualized intra-abdominal structures demonstrate nephrolithiasis bilaterally versus atherosclerotic disease. No hydronephrosis appreciated. Mild prominence of the abdominal aorta is noted although it is less than 3 cm in AP dimension. Small left pleural effusion noted. There is a bulging disc at L4-L5 flattening the ventral thecal sac, bilateral facet hypertrophy at these levels also noted. Mild central narrowing is suspected. At L5-S1 there is intervertebral space narrowing and vacuum gas phenomenon. Bulging disc is also noted. IMPRESSION: 1. Degenerative findings with no acute osseous abnormality. Other incidental findings as described. Dictated by: Dictated on workstation # [id number]
== END 2018-08-23 07:00 | disposition home or self-care (01) ==
LOC: EDUNIT# 04:04 → ER 04:07
DX: S32.10XA Unspecified fracture of sacrum, initial encounter for closed fracture (principal); L03.116 Cellulitis of left lower limb; N28.9 Disorder of kidney and ureter, unspecified; E87.5 Hyperkalemia; J44.9 Chronic obstructive pulmonary disease, unspecified; I25.10 Atherosclerotic heart disease of native coronary artery without angina pectoris; I25.2 Old myocardial infarction; E78.00 Pure hypercholesterolemia, unspecified; I10 Essential (primary) hypertension; Z87.01 Personal history of pneumonia (recurrent); Z79.82 Long term (current) use of aspirin; Z79.02 Long term (current) use of antithrombotics/antiplatelets; Z87.891 Personal history of nicotine dependence; Z95.1 Presence of aortocoronary bypass graft; Z90.710 Acquired absence of both cervix and uterus; Z98.890 Other specified postprocedural states; W17.89XA Other fall from one level to another, initial encounter
CPT/HCPCS: 36415; 51701; 71046; 72131; 72170; 72192; 80053; 80306; 81000; 83605; 83735; 83880; 85007; 85027; 85610; 85730; 87040; 87804; 93041; 96361; 96365; 96375

== ENCOUNTER 2018-09-06 10:15 | Emergency (ER) | payer SELFPAY, OTHER | END 2018-09-06 13:41 | disposition home or self-care (01) | LOC: ER 10:15 ==

== ENCOUNTER 2018-09-07 13:42 | Emergency (ER) | payer SELFPAY, OTHER | END 2018-09-07 15:05 | disposition home or self-care (01) | LOC: ER 13:42 ==

== ENCOUNTER → 2018-09-14 | Outpatient (CLI) | payer BC ==
[~2018-09-14] MED LIST changes: +CLIN300C11 PO; +DOXY100T19 PO; +GABA800T10 PO; -GABA800T2 PO; +HYDR-4226 PO; +MUPI1OIN6 TP
[2018-09-14 11:52] LABS: BASOPHILS # (AUTO) 0.2 10^3/uL (0.0-0.1); BASOPHILS % (AUTO) 1 % (0-10); EOSINOPHILS # (AUTO) 0.7 10^3/uL (0.0-0.3); EOSINOPHILS % (AUTO) 6 % (0-10); HEMATOCRIT 33 % (35-52); HEMOGLOBIN 10.8 G/DL (11.5-16.0); LYMPHOCYTES # (AUTO) 3.2 X 10^3 (1.0-4.0); LYMPHOCYTES % (AUTO) 26 % (12-44); MEAN CORPUSCULAR HEMOGLOBIN 31 PG (25-34); MEAN CORPUSCULAR HGB CONC 33 G/DL (32-36); MEAN CORPUSCULAR VOLUME 94 FL (80-99); MEAN PLATELET VOLUME 9.4 FL (7.4-10.4); MONOCYTES # (AUTO) 0.8 X 10^3 (0.0-1.0); MONOCYTES % (AUTO) 7 % (0-12); NEUTROPHILS # (AUTO) 7.2 X 10^3 (1.8-7.8); NEUTROPHILS % (AUTO) 59 % (42-75); PLATELET COUNT 504 10^3/uL (130-400); RED CELL DISTRIBUTION WIDTH 14.3 % (10.0-14.5); WHITE BLOOD COUNT 12.1 10^3/uL (4.3-11.0)
[2018-09-14 12:11] LABS: ALBUMIN 3.8 GM/DL (3.2-4.5); BILIRUBIN,TOTAL 0.2 MG/DL (0.1-1.0); CALCIUM 9.1 MG/DL (8.5-10.1); CREATININE SERUM 1.04 MG/DL (0.60-1.30); POTASSIUM 4.2 MMOL/L (3.6-5.0); TOTAL PROTEIN 6.9 GM/DL (6.4-8.2)
== END ==
LOC: CARD 11:13
PROVIDERS: ATTEND Surgery
DX: L97.223 Non-pressure chronic ulcer of left calf with necrosis of muscle (principal)
CPT/HCPCS: 36415; 80053; 85025; 93005

== ENCOUNTER → 2018-09-14 | Outpatient (CLI) | payer BC | LOC: WOUNDCARE 08:03 | PROVIDERS: ATTEND Surgery | DX: L97.222 Non-pressure chronic ulcer of left calf with fat layer exposed (principal); L97.223 Non-pressure chronic ulcer of left calf with necrosis of muscle; L97.212 Non-pressure chronic ulcer of right calf with fat layer exposed; T81.31XA Disruption of external operation (surgical) wound, not elsewhere classified, initial encounter; F17.218 Nicotine dependence, cigarettes, with other nicotine-induced disorders; J44.9 Chronic obstructive pulmonary disease, unspecified; I70.232 Atherosclerosis of native arteries of right leg with ulceration of calf; I70.242 Atherosclerosis of native arteries of left leg with ulceration of calf | CPT/HCPCS: 11042; 11043 ==

== ENCOUNTER → 2018-09-17 | Outpatient (CLI) | payer BC ==
--- NOTE | 2018-09-17 14:34 | Diagnostic Imaging Report ---
Indication: Ankle brachial indices. At the ankle, the right ALLI is 1.3, left is 1.2, within normal limits. Impression: Unremarkable resting lower extremity ABIs. Dictated by: Dictated on workstation # [id number]
== END ==
LOC: RAD 12:17
PROVIDERS: ATTEND Surgery
DX: I70.202 Unspecified atherosclerosis of native arteries of extremities, left leg (principal)
CPT/HCPCS: 93923

== ENCOUNTER → 2018-09-19 | Outpatient (CLI) | payer BC | LOC: WOUNDCARE 13:14 | PROVIDERS: ATTEND Surgery | DX: T81.31XA Disruption of external operation (surgical) wound, not elsewhere classified, initial encounter (principal); L97.222 Non-pressure chronic ulcer of left calf with fat layer exposed; L97.223 Non-pressure chronic ulcer of left calf with necrosis of muscle; L97.212 Non-pressure chronic ulcer of right calf with fat layer exposed; F17.218 Nicotine dependence, cigarettes, with other nicotine-induced disorders; J44.9 Chronic obstructive pulmonary disease, unspecified; T65.222S Toxic effect of tobacco cigarettes, intentional self-harm, sequela | CPT/HCPCS: 11042; 11043; 87070; 87075; 87077; 87205 ==

== ENCOUNTER 2018-09-23 19:09 | Emergency (ER) | payer BC ==
[~2018-09-23] VITALS: Ht 157.5 cm; Wt 52.2 kg
[2018-09-23] MEDS ORDERED: NITROGLYCERIN 0.4 MG SL TABS BTL 25'S SL PRN (19:15)
[2018-09-23] MEDS ORDERED: ASPIRIN 81 MG CHEW (CHILDREN'S ASA) PO ONE (19:15)
[2018-09-23] MEDS ORDERED: DEXAMETHASONE 4 MG/ML SDV (DECADRON) IH ONE (19:30)
[2018-09-23] MEDS ORDERED: RT-ALBUTEROL/IPRATROPIUM 3 ML (DUONEB) VIAL INH ONE (19:30)
[2018-09-23 19:34] LABS: BASOPHILS # (AUTO) 0.2 10^3/uL (0.0-0.1); BASOPHILS % (AUTO) 1 % (0-10); EOSINOPHILS # (AUTO) 0.7 10^3/uL (0.0-0.3); EOSINOPHILS % (AUTO) 5 % (0-10); HEMATOCRIT 36 % (35-52); LYMPHOCYTES # (AUTO) 4.2 X 10^3 (1.0-4.0); LYMPHOCYTES % (AUTO) 30 % (12-44); MEAN CORPUSCULAR HEMOGLOBIN 32 PG (25-34); MEAN CORPUSCULAR HGB CONC 33 G/DL (32-36); MEAN CORPUSCULAR VOLUME 95 FL (80-99); MEAN PLATELET VOLUME 9.8 FL (7.4-10.4); MONOCYTES # (AUTO) 0.9 X 10^3 (0.0-1.0); MONOCYTES % (AUTO) 6 % (0-12); NEUTROPHILS # (AUTO) 8.2 X 10^3 (1.8-7.8); NEUTROPHILS % (AUTO) 58 % (42-75); PLATELET COUNT 153 10^3/uL (130-400); RED CELL DISTRIBUTION WIDTH 13.6 % (10.0-14.5); WHITE BLOOD COUNT 14.1 10^3/uL (4.3-11.0)
[2018-09-23 19:40] LABS: PROTHROMBIN TIME PATIENT 13.4 SEC (12.2-14.7)
[2018-09-23 19:50] LABS: ALANINE AMINOTRANSFERASE 9 U/L (0-55); ALKALINE PHOSPHATASE 40 U/L (40-136); AMYLASE 38 U/L (25-125); BILIRUBIN,TOTAL 0.2 MG/DL (0.1-1.0); BUN/CREATININE RATIO 4; CALCIUM 9.9 MG/DL (8.5-10.1); CARBON DIOXIDE 12 MMOL/L (21-32); CHLORIDE 107 MMOL/L (98-107); CREATINE KINASE 42 U/L (29-168); CREATININE SERUM 0.77 MG/DL (0.60-1.30); GFR ESTIMATED > 60; GLUCOSE 119 MG/DL (70-105); LIPASE 12 U/L (8-78); MAGNESIUM 2.3 MG/DL (1.8-2.4); POTASSIUM 4.5 MMOL/L (3.6-5.0); SODIUM 136 MMOL/L (135-145); TOTAL PROTEIN 7.9 GM/DL (6.4-8.2)
--- NOTE | 2018-09-23 19:51 | Diagnostic Imaging Report ---
EXAMINATION: Chest radiograph, portable AP view. DATE: September 23, 2018 at 1928 hours. INDICATION: 58-year-old female, chest pain. COMPARISON: September 06, 2018. FINDINGS: There are median sternotomy wires. There are mediastinal surgical clips. Stable overall appearance of the cardiomediastinal silhouette. There is no identified pneumothorax. There is tenting of the right hemidiaphragm which is unchanged. There are linear opacities in the right lung base which are also unchanged since comparison exam. Correlating with prior CT chest, this likely relates to nonspecific opacification of right lower lobe bronchi. The tenting of the hemidiaphragm likely relates to a fat-containing right diaphragmatic hernia. There are at least some pleural calcifications much better seen on prior CT imaging. IMPRESSION: 1. Redemonstrated linear opacities in the right lower lobe correlating with nonspecific opacification with bronchi seen on prior CT chest of September 06, 2018. 2. Small fat-containing right posterior diaphragmatic hernia. 3. Right pleural calcifications additionally noted. 4. Findings are present dating back to September 06, 2018. No identified interval focal airspace consolidation. Dictated by: Dictated on workstation # [id number]
[2018-09-23 19:56] LABS: CREATINE KINASE MB 0.8 NG/ML (<6.6); MYOGLOBIN SERUM 23.1 NG/ML (10.0-92.0)
--- NOTE | 2018-09-23 20:03 | ED Chest Pain ---
General Chief Complaint: Chest Pain Stated Complaint: CHEST PAIN, SOB Nursing Triage Note: PT PRESENTS TO ED WITH COMPLAINTS OF CP UNDER BOTH BREASTS AND SOA SINCE MONDAY. PT ALSO REPORTS SHE HAS NOT HAD SOME OF HER MEDICATIONS FOR 1 WEEK. Nursing Sepsis Screen: No Definite Risk Source: patient, old records History of Present Illness Date Seen by Provider: Sep 23, 2018 Time Seen by Provider: 19:13 Initial Comments PT ARRIVES VIA POV FROM HOME C/O CHEST PAIN C/O SHORTNESS OF BREATH C/O GENERALIZED WEAKNESS SYMPTOMS BEGAN MONDAY AFTERNOON 09/21/18' STATES SYMPTOMS COME AND GO, BUT SAYS SHE IS GETTING MORE SHORT OF BREATH PT HAS HAD MINIMALLY PRODUCTIVE COUGH NO FEVER HAS HAD SLIGHT SWELLING TO LEGS PAIN IS UNDER BOTH BREASTS AND RATES PAIN 01/21. TOOK TYLENOL X 1 TODAY WITH ONLY MILD RELIEF. HAS NOT TAKEN ANYTHING ELSE FOR PAIN AT ANY TIME. PT STATES SHE HAS BEEN OUT OF ALL OF HER MEDICATIONS FOR OVER A WEEK, EXCEPT ATORVASTATIN PT HAS NOT TAKEN HER ASPIRIN TODAY, NOR HER ATORVASTATIN--DOES NOT GIVE ANY EXPLANATION TO WHY SHE DID NOT TAKE THEM PT HAS AN INHALER AT HOME BUT HAS NOT BEEN USING IT. PT JUST MOVED BACK HERE FROM [place] PT HAS HAD 6 VISITS SINCE MOVING BACK HERE 08/05/18 PT HAD 4 VESSEL CABG WHILE IN [place] 07/30/18, AND WAS DISMISSED FROM THERE AND IMMEDIATELY DROVE HERE, AND CAME TO THIS ER ALL IN THE SAME DAY PT HAS HAD POST OP PNEUMONIA AND OTHER COMPLICATIONS, INCLUDING WOUND DEHISCENCE AND INFECTION TO HER LEG WOUNDS PT WAS LAST HERE 09/06 AND 09/07 FOR LEG WOUNDS, AND CHEST PAIN AND SHORTNESS OF BREATH WAS GIVEN RX FOR DOXYCYCLINE AND HYDROCODONE #30 ON 09/06/18 PT STATES THOSE ARE MUCH BETTER NOW HAD BEEN PRESCRIBED CLINDAMYCIN ON 08/23/18 FOR 10 DAYS FOR LEG WOUNDS. WAS ALREADY ON BACTRIM AT THE TIME OF THAT VISIT PT ALSO FRACTURED HER COCCYX ON 08/23/18 AFTER FALLING AND LANDING ON HER BUTTOCKS SEE OLD CHARTS FOR DETAILS CONTINUES TO SMOKE 1 PPD, AND SMOKES PT HAS NOT FOLLOWED UP WITH ANYONE IN OFFICE AFTER ANY OF THESE VISITS PT STATE SHE HAS A NEW PT APPOINTMENT WITH [facility] 10/01/09 WILL BE FOLLOWING UP WITH DR. MCMANUS FOR CARDIOLOGY, AND WITH A CV SURGEON IN [place] FOR POST OP CARE. Allergies and Home Medications Allergies Coded Allergies: No Known Drug Allergies (Unverified , 08/23/18) Home Medications Amiodarone HCl 200 Mg Tablet, 1 TAB PO UD TAKE 1 TAB DAILY UNTIL 10-21-18 Prescribed by: MAULIK COLLIER on 08/17/181046 Aspirin 81 Mg Tab.chew, 81 MG PO DAILY Prescribed by: SARABJIT EATON on 08/06/18 1115 Atorvastatin Calcium 20 Mg Tablet, 20 MG PO HS, (Reported) Budesonide 1 Mg/2 Ml Ampul.neb, 1 MG IH BID Prescribed by: LATONIA BOUCHER on 09/23/182103 Cefdinir 300 Mg Capsule, 300 MG PO BID Prescribed by: LATONIA BOUCHER on 09/23/182102 Clindamycin HCl 300 Mg Capsule, 300 MG PO QID Prescribed by: LATONIA BOUCHER on 08/23/18 06 Clopidogrel Bisulfate 75 Mg Tablet, 75 MG PO DAILY, (Reported) Doxycycline Monohydrate 100 Mg Tablet, 100 MG PO BID Prescribed by: JASON ROLON on 09/06/18 125 Fluconazole 150 Mg Tablet, 150 MG PO DAILY Prescribed by: MAULIK COLLIER on 08/17/181046 Furosemide 20 Mg Tablet, 20 MG PO DAILY, (Reported) 7 DAY THERAPY FILLED 08-03-18 Hydrocodone/Acetaminophen 1 Each Tablet, 1 EACH PO Q6H PRN for PAIN-MODERATE Prescribed by: JASON ROLON on 09/06/18 125 Ipratropium/Albuterol Sulfate 3 Ml Ampul.neb, 3 ML IH Q4H PRN for SHORTNESS OF BREATH Prescribed by: LATONIA BOUCHER on 09/23/182102 Lisinopril 5 Mg Tablet, 5 MG PO DAILY Prescribed by: MAULIK COLLIER on 08/17/18 104 Melatonin 5 Mg Capsule, 5 MG PO HS PRN for SLEEP, (Reported) Methylprednisolone 4 Mg Tab.ds.pk, 4 MG PO UD Prescribed by: LATONIA BOUCHER on 09/23/182103 Metoprolol Succinate 25 Mg Tab.er.24h, 25 MG PO DAILY Prescribed by: MAULIK COLLIER on 08/17/18 104 Mupirocin 1 Gm Oin.pf.jerald, 1 GM TP BID Prescribed by: LATONIA BOUCHER on 08/23/18 06 Nicotine 1 Each Patch.td24, 21 MG TD DAILY, (Reported) Oxycodone HCl/Acetaminophen 1 Each Tablet, 1 TAB PO Q4H PRN for PAIN-MODERATE Prescribed by: MAULIK COLLIER on 08/17/18 104 Polyethylene Glycol 3350 17 Gm Powd.pack, 17 GM PO BID Prescribed by: MAULIK COLLIER on 08/17/18 104 Potassium Chloride 20 Meq Tab.er.prt, 20 MEQ PO DAILY@0700 Prescribed by: MAULIK COLLIER on 08/17/18 104 Sertraline HCl 50 Mg Tablet, 50 MG PO HS Prescribed by: MAULIK COLLIER on 08/17/18 104 [Trimethoprim/Sulfamethoxazole] 1 EA TAB, 1 EA PO BID WITH MEALS Prescribed by: MAULIK COLLIER on 08/17/181046 Patient Home Medication List Home Medication List Reviewed: Yes Review of Systems Review of Systems Constitutional: no symptoms reported Respiratory: See HPI, Cough Cardiovascular: See HPI, Chest Pain, Edema Gastrointestinal: No Symptoms Reported Genitourinary: No Symptoms Reported Musculoskeletal: see HPI Skin: see HPI Psychiatric/Neurological: No Symptoms Reported Endocrine: No Symptoms Reported Past Otiugbi-Fxeybf-Xydfnk Hx Patient Social History Alcohol Use: Denies Use Recreational Drug Use: No Smoking Status: Current Everyday Smoker (1 PPD) Type Used: Cigarettes 2nd Hand Smoke Exposure: Yes Recent Foreign Travel: No Contact w/Someone Who Travel: No Recent Infectious Disease Expo: No Recent Hopitalizations: No Physical Abuse: No Sexual Abuse: No Mistreated: No Fear: No Immunizations Up To Date Tetanus Booster (TDap): Unknown PED Vaccines UTD: Yes Date of Pneumonia Vaccine: Jul 17, 2017 Date of Influenza Vaccine: Aug 03, 2018 Seasonal Allergies Seasonal Allergies: No Past Medical History Surgeries: Yes (CARPAL TUNNEL, OPEN HEART-4 VESSEL CABG 07/30/18) Cardiac, CABG, Hysterectomy, Oophorectomy, Open Heart Surgery, Orthopedic, Vascular Surgery Respiratory: Yes Asthma, Pneumonia, COPD Currently Using CPAP: No Currently Using BIPAP: No Cardiac: Yes ([place] 07/2018 WITH 4 VESSEL CABG 07/30/18) Coronary Artery Disease, Heart Attack, High Cholesterol, Hypertension Neurological: No Female 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 Disorders: Denies [employer] History: Menopausal Genitourinary: No Gastrointestinal: No Musculoskeletal: Yes (PSORIATIC ARTHRITIS) Degenerate Disk Disease, Arthritis, Chronic Back Pain Endocrine: No HEENT: No (EDENTULOUS) Cancer: No Psychosocial: No Integumentary: Yes (POST OP WOUND INFECTION TO LEGS POST CABG) Psoriasis Blood Disorders: Yes (POST OP ANEMIA 07/2018--4 UNITS OF BLOOD POST OP) Adverse Reaction/Blood Tranf: No Family Medical History No Pertinent Family Hx Physical Exam Vital Signs Vital Signs - First Documented 09/23/18 09/23/18 19:31 19:57 Temp 97.8 Pulse 103 Resp 30 B/P (MAP) 149/92 (111) Pulse Ox 95 O2 Delivery Room Air Capillary Refill : Less Than 3 Seconds Height, Weight, BMI Height: 5'2.00" Weight: 115lbs. 0oz. [id number]; 24.9 BMI Method:Stated General Appearance: WD/WN, Other (REEKS OF CIGARETTES. SLIGHTLY DYSPNEICA ) HEENT: PERRL/EOMI Neck: Normal Inspection Respiratory: Rales (DIFFUSE BILATERALLY), Rhonci (DIFFUSE BILATERALLY), Wheezing (DIFFUSE BILATERALLY), Other (MILDLY DYSPNEIC ) Cardiovascular: Regular Rate, Rhythm (FREQUENT ECTOPY C/W PVC'S ), No JVD, No Murmur Gastrointestinal: Non Tender, Soft Extremity: Normal Capillary Refill, Normal Range of Motion, Pedal Edema (TRACE EDEMA BILATERAL LOWER LEGS. DRESSINGS IN PLACE TO LEG WOUNDS ARE CLEAN/DRY/ INTACT. ) Neurologic/Psychiatric: Alert, Oriented x3, No Motor/Sensory Deficits, Normal Mood/Affect, sole assessor II-XII Norm as Tested Skin: Normal Color, Warm/Dry Progress/Results/Core Measures Results/Orders Lab Results Laboratory Tests Test 09/23/18 19:24 Range/Units White Blood Count 14.1 H 4.3-11.0 10^3/uL Red Blood Count 3.80 L 4.35-5.85 10^6/uL Hemoglobin 12.0 11.5-16.0 G/DL Hematocrit 36 35-52 % Mean Corpuscular Volume 95 80-99 FL Mean Corpuscular Hemoglobin 32 25-34 PG Mean Corpuscular Hemoglobin Concent 33 32-36 G/DL Red Cell Distribution Width 13.6 10.0-14.5 % Platelet Count 153 130-400 10^3/uL Mean Platelet Volume 9.8 7.4-10.4 FL Neutrophils (%) (Auto) 58 42-75 % Lymphocytes (%) (Auto) 30 12-44 % Monocytes (%) (Auto) 6 0-12 % Eosinophils (%) (Auto) 5 0-10 % Basophils (%) (Auto) 1 0-10 % Neutrophils # (Auto) 8.2 H 1.8-7.8 X 10^3 Lymphocytes # (Auto) 4.2 H 1.0-4.0 X 10^3 Monocytes # (Auto) 0.9 0.0-1.0 X 10^3 Eosinophils # (Auto) 0.7 H 0.0-0.3 10^3/uL Basophils # (Auto) 0.2 H 0.0-0.1 10^3/uL Prothrombin Time 13.4 12.2-14.7 SEC INR Comment 1.0 0.8-1.4 Activated Partial Thromboplast Time 26 24-35 SEC Sodium Level 136 135-145 MMOL/L Potassium Level 4.5 3.6-5.0 MMOL/L Chloride Level 107 98-107 MMOL/L Carbon Dioxide Level 12 L 21-32 MMOL/L Anion Gap 17 H 5-14 MMOL/L Blood Urea Nitrogen 3 L 7-18 MG/DL Creatinine 0.77 0.60-1.30 MG/DL Estimat Glomerular Filtration Rate > 60 BUN/Creatinine Ratio 4 Glucose Level 119 H 70-105 MG/DL Calcium Level 9.9 8.5-10.1 MG/DL Corrected Calcium 9.8 8.5-10.1 MG/DL Magnesium Level 2.3 1.8-2.4 MG/DL Total Bilirubin 0.2 0.1-1.0 MG/DL Aspartate Amino Transf (AST/SGOT) 25 5-34 U/L Alanine Aminotransferase (ALT/SGPT) 9 0-55 U/L Alkaline Phosphatase 40 40-136 U/L Total Creatine Kinase 42 29-168 U/L Creatine Kinase MB 0.8 <6.6 NG/ML Myoglobin 23.1 10.0-92.0 NG/ML Troponin I < 0.028 <0.028 NG/ML B-Type Natriuretic Peptide 92.5 <100.0 PG/ML Total Protein 7.9 6.4-8.2 GM/DL Albumin 4.1 3.2-4.5 GM/DL Amylase Level 38 25-125 U/L Lipase 12 8-78 U/L My Orders Orders - LATONIA BOUCHER DO Cbc With Automated Diff (09/23/18:13) Magnesium (09/23/18:) Chest 1 View, Ap/Pa Only (09/23/18:13) Ekg Tracing (09/23/18:) Cardiac Profile 1 (09/23/18:) Comprehensive Metabolic Panel (09/23/18:) Myoglobin Serum (09/23/18:) Protime With Inr (09/23/18:) Partial Thromboplastin Time (09/23/18:) O2 (09/23/18:) Monitor-Rhythm Ecg Trace Only (09/23/18:) Aspirin Chewable Tablet (Baby Aspirin Ch (09/23/18:15) Nitroglycerin 0.4 Mg Btl 25's (Nitrostat (09/23/18:15) Saline Lock/Iv-Start (09/23/18:) Creatine Kinase (09/23/18:) Creatine Kinase Mb (09/23/18:13) Lipase (09/23/18:) Amylase (09/23/18:) BNP (09/23/18:) Albuterol/Ipra Inhalation Soln (Duoneb I (09/23/18 19:30) Dexamethasone Injection (Decadron Inject (09/23/18 19:30) Rt Request For Service (09/23/18:25) Svn Small Volume Nebulizer (09/23/18:25) Methylprednisolone Sod Succ (Solu-Medrol (09/23/18 20:18) Ceftriaxone For Iv Use (Rocephin For I (09/23/18 20:30) Clopidogrel Tablet (Plavix Tablet) (09/23/18 21:15) Metoprolol Succinate (Xl) Tab (Toprol Xl (09/23/18 21:15) Furosemide Tablet (Lasix Tablet) (09/23/18 21:15) Amiodarone Tablet (Cordarone Tablet) (09/23/18 21:15) Potassium Chloride (Tablet) (Klor Con Ta (09/23/18 21:15) Rx-Albuterol Nebs (Rx-Proventil Nebs) (09/23/18 21:15) Breathing Machine Home Use-Dme (09/23/18 21:07) Medications Given in ED Vital Signs/I&O 09/23/18 09/23/18 09/23/18 19:31 19:57 22:00 Temp 97.8 Pulse 103 113 Resp 30 26 B/P (MAP) 149/92 (111) 147/66 (93) Pulse Ox 95 98 95 O2 Delivery Room Air Blood Pressure Mean: 111 Progress Progress Note : Progress Note GIVEN HOUR LONG NEB TREATMENT WITH COMPLETE RESOLUTION OF WHEEZING AND DYSPNEA. PT HAS COMPLETE RESOLUTION OF CHEST PAIN AFTER NEB TREATMENT PT INSTRUCTED ON PROPER USE OF INHALER WITH SPACER BY RT STAFF. Initial ECG Impression Date: Sep 23, 2018 Initial ECG Impression Time: 19:13 Initial ECG Rate: 103 Initial ECG Rhythm: S.Tach (PVC'S) Initial ECG Impression: Nonspecific Changes Diagnostic Imaging Comments CXR--UNCHANGED FROM 09/11/18--RLL LINEAR OPACITIES. SMALL DIAPHRAGMATIC HERNIA-- PER RADIOLOGIST REPORT @ 2003 Reviewed: Reviewed by Me Departure Impression Primary Impression: COPD exacerbation Additional Impressions: BRONCHITIS VS MILD PERSISTENT RLL PNEUMONIA Smoker Non-compliance Hx of CABG Disposition: HOME, SELF-CARE Condition: Improved Departure-Patient Inst. Referrals: [facility] (PCP) Primary Care Physician JOE VARMA APRN (Family) Primary Care Physician SUPA MCMANUS MD Patient Instructions: Acute Bronchitis, Adult (DC), Chronic Obstructive Pulmonary Disease (COPD), Including Emphysema, Coronary Heart Disease (DC), Quitting Smoking for Older Adults, SMOKING CESSATION Add. Discharge Instructions: GET YOUR PRESCRIPTIONS REFILLED IN THE MORNING AND TAKE THEM EVERY DAY PRESCRIBED TAKE ASPIRIN EVERY DAY PRESCRIBED USE YOUR NEBULIZER EVERY DAY PRESCRIBED FOLLOW UP WITH DR. MCMANUS AND [facility] [place]UR[place] CARE RETURN TO ER IF WORSE All discharge instructions reviewed with patient and/or family. Voiced understanding. Scripts Budesonide (Pulmicort) 1 Mg/2 Ml Ampul.neb 1 MG IH BID, #1 UNIT Prov: LATONIA BOUCHER DO 09/23/18 Methylprednisolone (Medrol) 4 Mg Tab.ds.pk 4 MG PO UD, #1 PKG Prov: CITLALY,LATONIA K DO 09/23/18 Ipratropium/Albuterol Sulfate (Iprat-Albut 0.5-3(2.5) mg/3 ml) 3 Ml Ampul.neb 3 ML IH Q4H PRN for SHORTNESS OF BREATH, #1 EACH Prov: LATONIA BOUCHER DO 09/23/18 Cefdinir (Cefdinir) 300 Mg Capsule 300 MG PO BID for FOR INFECTION, #20 CAP Prov: LATONIA BOUCHER DO 09/23/18 LATONIA BOUCHER DO Sep 23, 2018 20:03
[2018-09-23 20:07] LABS: ALBUMIN 4.1 GM/DL (3.2-4.5)
[2018-09-23] MEDS ORDERED: methylPREDNISolone 125 MG (Solu-MEDROL) VIAL IV STA (20:18)
[2018-09-23] MEDS ORDERED: cefTRIAXone FOR IV USE 1,000 MG in WATER (STERILE) FOR INJECTION 10 ML IV ONE (20:30)
[2018-09-23] MEDS ORDERED: CEFD300C3 PO (21:03)
[2018-09-23] MEDS ORDERED: IPRA3AMP31 IH (21:03)
[2018-09-23] MEDS ORDERED: BUDE1AMP IH (21:04)
[2018-09-23] MEDS ORDERED: METH4TAB PO (21:04)
[2018-09-23] MEDS ORDERED: AMIODARONE 200 MG (CORDARONE) TAB PO SCH (21:15)
[2018-09-23] MEDS ORDERED: meTOproloL SUCCINATE 50 MG (TOPROL XL) TAB PO SCH (21:15)
[2018-09-23] MEDS ORDERED: KCL 10 MEQ TAB (MICRO K) PO ONE (21:15)
[2018-09-23] MEDS ORDERED: RX-ALBUTEROL NEB 2.5 MG/3 ML PACK #5 IH ONE (21:15)
[2018-09-23] MEDS ORDERED: CLOPIDOGREL 75 MG (PLAVIX) TABLET PO ONE (21:15)
[2018-09-23] MEDS ORDERED: FUROSEMIDE 20 MG (LASIX) TAB PO ONE (21:15)
[2018-09-23 22:00] VITALS: BP 147/66
== END 2018-09-23 21:59 | disposition home or self-care (01) ==
LOC: EDUNIT# 19:09 → ER 19:10
DX: J44.1 Chronic obstructive pulmonary disease with (acute) exacerbation (principal); I25.2 Old myocardial infarction; I25.10 Atherosclerotic heart disease of native coronary artery without angina pectoris; E78.00 Pure hypercholesterolemia, unspecified; I10 Essential (primary) hypertension; D64.9 Anemia, unspecified; Z79.82 Long term (current) use of aspirin; Z79.02 Long term (current) use of antithrombotics/antiplatelets; Z91.14 Patient's other noncompliance with medication regimen; Z87.891 Personal history of nicotine dependence; Z98.890 Other specified postprocedural states; Z95.1 Presence of aortocoronary bypass graft; Z90.710 Acquired absence of both cervix and uterus; Z87.01 Personal history of pneumonia (recurrent)
CPT/HCPCS: 36415; 71045; 80053; 82150; 82550; 82553; 83690; 83735; 83874; 83880; 84484; 85025; 85610; 85730; 93005; 93041; 94640

== ENCOUNTER → 2018-09-26 | Outpatient (CLI) | payer BC ==
[~2018-09-26] MED LIST changes: +BUDE1AMP IH; +IPRA3AMP31 IH; +METH4TAB PO
== END ==
LOC: LAB 14:46
PROVIDERS: ATTEND Surgery
DX: L97.223 Non-pressure chronic ulcer of left calf with necrosis of muscle (principal)
CPT/HCPCS: 36415; 84134

== ENCOUNTER → 2018-09-26 | Outpatient (CLI) | payer BC | LOC: WOUNDCARE 14:52 | PROVIDERS: ATTEND Surgery | DX: T81.31XA Disruption of external operation (surgical) wound, not elsewhere classified, initial encounter (principal); L97.222 Non-pressure chronic ulcer of left calf with fat layer exposed; L97.212 Non-pressure chronic ulcer of right calf with fat layer exposed; F17.218 Nicotine dependence, cigarettes, with other nicotine-induced disorders; J44.9 Chronic obstructive pulmonary disease, unspecified; T65.222S Toxic effect of tobacco cigarettes, intentional self-harm, sequela | CPT/HCPCS: 11042 ==

== ENCOUNTER → 2018-10-03 | Outpatient (CLI) | payer BC | LOC: WOUNDCARE 14:41 | PROVIDERS: ATTEND Surgery | DX: T81.31XA Disruption of external operation (surgical) wound, not elsewhere classified, initial encounter (principal); L97.222 Non-pressure chronic ulcer of left calf with fat layer exposed; L97.212 Non-pressure chronic ulcer of right calf with fat layer exposed; L97.122 Non-pressure chronic ulcer of left thigh with fat layer exposed; F17.218 Nicotine dependence, cigarettes, with other nicotine-induced disorders; J44.9 Chronic obstructive pulmonary disease, unspecified; T65.222S Toxic effect of tobacco cigarettes, intentional self-harm, sequela | CPT/HCPCS: 11042 ==

== ENCOUNTER → 2018-10-10 | Outpatient (CLI) | payer BC | LOC: WOUNDCARE 13:50 | PROVIDERS: ATTEND Surgery | DX: T81.31XA Disruption of external operation (surgical) wound, not elsewhere classified, initial encounter (principal); L97.222 Non-pressure chronic ulcer of left calf with fat layer exposed; L97.212 Non-pressure chronic ulcer of right calf with fat layer exposed; L97.122 Non-pressure chronic ulcer of left thigh with fat layer exposed; F17.218 Nicotine dependence, cigarettes, with other nicotine-induced disorders; J44.9 Chronic obstructive pulmonary disease, unspecified; T65.222S Toxic effect of tobacco cigarettes, intentional self-harm, sequela | CPT/HCPCS: 11042 ==

== ENCOUNTER 2018-10-16 05:30 | Inpatient (IN) | payer BC ==
[~2018-10-16] VITALS: Ht 160 cm; Wt 58.7 kg
[2018-10-16] VITALS (7 sets, daily range): BP systolic 94–123; BP diastolic 57–83
[2018-10-16] MEDS ORDERED: NS IV 1000 ML 1,000 ML IV SCH ×2 (05:36→10:00)
[2018-10-16] MEDS ORDERED: RT-ALBUTEROL/IPRATROPIUM 3 ML (DUONEB) VIAL ONE (05:40)
[2018-10-16] MEDS ORDERED: RT-ALBUTEROL/IPRATROPIUM 3 ML (DUONEB) VIAL INH ONE (05:45)
[2018-10-16] MEDS ORDERED: ASPIRIN 81 MG CHEW (CHILDREN'S ASA) PO ONE (05:45)
[2018-10-16] MEDS ORDERED: CEFEPIME INJECTION 1,000 MG in WATER (STERILE) FOR INJECTION 10 ML IV ONE (05:45)
--- NOTE | 2018-10-16 05:46 | ED Chest Pain ---
General Stated Complaint: CP Source: patient, EMS Exam Limitations: no limitations (LYDIA HASSAN) History of Present Illness Date Seen by Provider: Oct 16, 2018 Time Seen by Provider: 05:29 Initial Comments Patient presents to ER by EMS from [facility] with chief complaint that she 's having a cough because her to have some pain in the middle of her sternum where her previous sternotomy for CABG in July 2018. She says she's been coughing for the past couple days and had some Tessalon Perles given to her by Dr. Ramirez's office she was using from a few days before that. She started having a fever of 100.8 on Monday and took some Tylenol and went away. She's not having any nausea vomiting chills sweats pain radiating anywhere away from her sternum. She says it hurts if she pushes on her sternum or if she takes a big deep breath or coughs. (LYDIA HASSAN) Allergies and Home Medications Allergies Coded Allergies: No Known Drug Allergies (Unverified , 08/23/18) Home Medications Amiodarone HCl 200 Mg Tablet, 1 TAB PO UD TAKE 1 TAB DAILY UNTIL 10-21-18 Prescribed by: MAULIK COLLIER on 08/17/18 104 Aspirin 81 Mg Tab.chew, 81 MG PO DAILY Prescribed by: SARABJIT EATON on 08/06/18 1115 Atorvastatin Calcium 20 Mg Tablet, 20 MG PO HS, (Reported) Budesonide 1 Mg/2 Ml Ampul.neb, 1 MG IH BID Prescribed by: LATONIA BOUCHER on 09/23/182103 Cefdinir 300 Mg Capsule, 300 MG PO BID Prescribed by: LATONIA BOUCHER on 09/23/182102 Clindamycin HCl 300 Mg Capsule, 300 MG PO QID Prescribed by: LATONIA BOUCHER on 08/23/18 0608 Clopidogrel Bisulfate 75 Mg Tablet, 75 MG PO DAILY, (Reported) Doxycycline Monohydrate 100 Mg Tablet, 100 MG PO BID Prescribed by: JASON ROLON on 09/06/18 1259 Fluconazole 150 Mg Tablet, 150 MG PO DAILY Prescribed by: MAULIK COLLIER on 08/17/18 1047 Furosemide 20 Mg Tablet, 20 MG PO DAILY, (Reported) 7 DAY THERAPY FILLED 08-03-18 Hydrocodone/Acetaminophen 1 Each Tablet, 1 EACH PO Q6H PRN for PAIN-MODERATE Prescribed by: JASON ROLON on 09/06/18 1259 Ipratropium/Albuterol Sulfate 3 Ml Ampul.neb, 3 ML IH Q4H PRN for SHORTNESS OF BREATH Prescribed by: LATONIA BOUCHER on 09/23/182102 Lisinopril 5 Mg Tablet, 5 MG PO DAILY Prescribed by: MAULIK COLLIER on 08/17/181046 Melatonin 5 Mg Capsule, 5 MG PO HS PRN for SLEEP, (Reported) Methylprednisolone 4 Mg Tab.ds.pk, 4 MG PO UD Prescribed by: LATONIA BOUCHER on 09/23/182103 Metoprolol Succinate 25 Mg Tab.er.24h, 25 MG PO DAILY Prescribed by: MAULIK COLLIER on 08/17/181046 Mupirocin 1 Gm Oin.pf.jerald, 1 GM TP BID Prescribed by: LATONIA BOUCHER on 08/23/18 0608 Nicotine 1 Each Patch.td24, 21 MG TD DAILY, (Reported) Oxycodone HCl/Acetaminophen 1 Each Tablet, 1 TAB PO Q4H PRN for PAIN-MODERATE Prescribed by: MAULIK COLLIER on 08/17/18 104 Polyethylene Glycol 3350 17 Gm Powd.pack, 17 GM PO BID Prescribed by: MAULIK COLLIER on 08/17/18 104 Potassium Chloride 20 Meq Tab.er.prt, 20 MEQ PO DAILY@0700 Prescribed by: MAULIK COLLIER on 08/17/18 104 Sertraline HCl 50 Mg Tablet, 50 MG PO HS Prescribed by: MAULIK COLLIER on 08/17/18 104 [Trimethoprim/Sulfamethoxazole] 1 EA TAB, 1 EA PO BID WITH MEALS Prescribed by: MAULIK COLLIER on 08/17/18 104 Patient Home Medication List Home Medication List Reviewed: Yes (LYDIA HASSAN) Home Medication List Reviewed: Yes (DAREN ANGELES MD) Review of Systems Review of Systems Constitutional: No chills, No diaphoresis EENTM: No Blurred Vision, No Double Vision Respiratory: Cough, Shortness of Air, Wheezing Cardiovascular: See HPI, Chest Pain; Denies Edema Gastrointestinal: Denies Abdomen Distended, Denies Abdominal Pain, Denies Nausea Genitourinary: Denies Burning, Denies Discharge Musculoskeletal: No back pain, No joint pain (LYDIA HASSAN) Constitutional: fever Psychiatric/Neurological: Anxiety, Headache (DAREN ANGELES MD) All Other Systems Reviewed Negative Unless Noted: Yes (DAREN ANGELES MD) Past Yquthow-Hecjkn-Jmpaee Hx Past Med/Social Hx: Reviewed Nursing Past Med/Soc Hx (DAREN ANGELES MD) Patient Social History Alcohol Use: Denies Use Recreational Drug Use: No Smoking Status: Former Smoker Type Used: Cigarettes Former Smoker, Quit: Jul 22, 2018 2nd Hand Smoke Exposure: Yes Recent Foreign Travel: No Contact w/Someone Who Travel: No Recent Hopitalizations: No (LYDIA HASSAN) Immunizations Up To Date Tetanus Booster (TDap): Unknown PED Vaccines UTD: Yes Date of Pneumonia Vaccine: Jul 17, 2017 Date of Influenza Vaccine: Aug 03, 2018 (LYDIA HASSAN) Seasonal Allergies Seasonal Allergies: No (LYDIA HASSAN) Past Medical History Surgeries: Yes (CARPAL TUNNEL, OPEN HEART-4 VESSEL CABG 07/30/18) Cardiac, CABG, Hysterectomy, Oophorectomy, Open Heart Surgery, Orthopedic, Vascular Surgery Respiratory: Yes Asthma, Pneumonia, COPD Currently Using CPAP: No Currently Using BIPAP: No Cardiac: Yes (GA 07/2018 WITH 4 VESSEL CABG 07/30/18) Coronary Artery Disease, Heart Attack, High Cholesterol, Hypertension Neurological: No Female 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 Disorders: 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 Genitourinary: No Gastrointestinal: No Musculoskeletal: Yes (PSORIATIC ARTHRITIS) Degenerate Disk Disease, Arthritis, Chronic Back Pain Endocrine: No HEENT: No (EDENTULOUS) Cancer: No Psychosocial: No Integumentary: Yes Psoriasis Blood Disorders: Yes (POST OP ANEMIA 07/2018--4 UNITS OF BLOOD POST OP) Adverse Reaction/Blood Tranf: No (LYDIA HASSAN) Family Medical History Reviewed Nursing Family Hx (DAREN ANGELES MD) No Pertinent Family Hx (LYDIA HASSAN) No Pertinent Family Hx (DAREN ANGELES MD) Physical Exam Vital Signs Vital Signs - First Documented 10/16/18 05:32 Temp 99.4 Pulse 115 Resp 22 B/P (MAP) 94/57 (69) Pulse Ox 100 O2 Delivery Room Air (DAREN ANGELES MD) Vital Signs Capillary Refill : (LYDIA HASSAN) Height, Weight, BMI Height: 5'2.00" Weight: 115lbs. 0oz. 52.447675ja; 24.9 BMI Method:Stated General Appearance: Anxious, Chronically ill, Mild Distress, Thin HEENT: PERRL/EOMI, Normal ENT Inspection, Pharynx Normal, Moist Mucous Membranes (LYDIA HASSAN) General Appearance: Anxious, Chronically ill, Mild Distress HEENT: PERRL/EOMI, Pharynx Normal, Moist Mucous Membranes Neck: Full Range of Motion, Non Tender, Supple Respiratory: Expiration, Wheezing, Other (course cough with expiratory wheezes) Cardiovascular: No Murmur, Tachycardia Gastrointestinal: Non Tender, Soft Extremity: Normal Range of Motion, Non Tender Neurologic/Psychiatric: Alert, Oriented x3 Skin: Normal Color, Warm/Dry (DAREN ANGELES MD) Focused Exam Lactate Level 10/16/18 06:15: Lactic Acid Level 2.72*H 10/16/18 08:15: Lactic Acid Level 2.92*H (DAREN AGNELES MD) Lactic Acid Level Laboratory Tests Test 10/16/18 06:15 10/16/18 08:15 Lactic Acid Level 2.72 MMOL/L (0.50-2.00) *H 2.92 MMOL/L (0.50-2.00) *H (DAREN ANGELES MD) Progress/Results/Core Measures Results/Orders Lab Results Laboratory Tests Test 10/16/18 05:46 10/16/18 06:15 10/16/18 07:18 10/16/18 08:15 Range/Units White Blood Count 13.6 H 4.3-11.0 10^3/uL Red Blood Count 4.02 L 4.35-5.85 10^6/uL Hemoglobin 12.6 11.5-16.0 G/DL Hematocrit 37 35-52 % Mean Corpuscular Volume 92 80-99 FL Mean Corpuscular Hemoglobin 31 25-34 PG Mean Corpuscular Hemoglobin Concent 34 32-36 G/DL Red Cell Distribution Width 12.9 10.0-14.5 % Platelet Count 433 H 130-400 10^3/uL Mean Platelet Volume 9.1 7.4-10.4 FL Neutrophils (%) (Auto) 95 H 42-75 % Lymphocytes (%) (Auto) 3 L 12-44 % Monocytes (%) (Auto) 2 0-12 % Eosinophils (%) (Auto) 1 0-10 % Basophils (%) (Auto) 0 0-10 % Neutrophils # (Auto) 12.9 H 1.8-7.8 X 10^3 Lymphocytes # (Auto) 0.4 L 1.0-4.0 X 10^3 Monocytes # (Auto) 0.2 0.0-1.0 X 10^3 Eosinophils # (Auto) 0.1 0.0-0.3 10^3/uL Basophils # (Auto) 0.0 0.0-0.1 10^3/uL Neutrophils % (Manual) 91 % Lymphocytes % (Manual) 8 % Monocytes % (Manual) 1 % Prothrombin Time 14.6 12.2-14.7 SEC INR Comment 1.1 0.8-1.4 Activated Partial Thromboplast Time 43 H 24-35 SEC Sodium Level 132 L 135-145 MMOL/L Potassium Level 3.6 3.6-5.0 MMOL/L Chloride Level 100 98-107 MMOL/L Carbon Dioxide Level 16 L 21-32 MMOL/L Anion Gap 16 H 5-14 MMOL/L Blood Urea Nitrogen 11 7-18 MG/DL Creatinine 1.10 0.60-1.30 MG/DL Estimat Glomerular Filtration Rate 51 BUN/Creatinine Ratio 10 Glucose Level 103 70-105 MG/DL Calcium Level 9.5 8.5-10.1 MG/DL Corrected Calcium 9.7 8.5-10.1 MG/DL Magnesium Level 2.1 1.8-2.4 MG/DL Total Bilirubin 0.2 0.1-1.0 MG/DL Aspartate Amino Transf (AST/SGOT) 21 5-34 U/L Alanine Aminotransferase (ALT/SGPT) 10 0-55 U/L Alkaline Phosphatase 50 40-136 U/L Myoglobin 31.3 10.0-92.0 NG/ML Troponin I < 0.028 <0.028 NG/ML Total Protein 7.4 6.4-8.2 GM/DL Albumin 3.8 3.2-4.5 GM/DL Lactic Acid Level 2.72 *H 2.92 *H 0.50-2.00 MMOL/L Urine Color YELLOW Urine Clarity CLEAR Urine pH 6 5-9 Urine Specific Prentice 1.010 L 1.016-1.022 Urine Protein 1+ H NEGATIVE Urine Glucose (UA) NEGATIVE NEGATIVE Urine Ketones NEGATIVE NEGATIVE Urine Nitrite NEGATIVE NEGATIVE Urine Bilirubin NEGATIVE NEGATIVE Urine Urobilinogen NORMAL NORMAL MG/DL Urine Leukocyte Esterase NEGATIVE NEGATIVE Urine RBC (Auto) NEGATIVE NEGATIVE Urine RBC NONE /HPF Urine WBC 0-2 /HPF Urine Squamous Epithelial Cells 2-5 /HPF Urine Crystals NONE /LPF Urine Bacteria TRACE /HPF Urine Casts NONE /LPF Urine Mucus NEGATIVE /LPF Urine Culture Indicated CULTURE PENDING (DAREN ANGELES MD) Micro Results Microbiology 10/16/18 Influenza Types A,B Antigen (MARCY) - Final, Complete (DAREN ANGELES MD) My Orders Orders - DAREN ANGELES MD Comprehensive Metabolic Panel (10/16/18 05:46) Lorazepam Injection (Ativan Injection) (10/16/18 07:00) Ketorolac Injection (Toradol Injection) (10/16/18 07:00) Ct Angio Chest W (10/16/18 07:28) Saline Lock/Iv-Start (10/16/18 07:28) Ns Iv 500 Ml (Sodium Chloride 0.9%) (10/16/18 07:28) Fentanyl Injection (Sublimaze Injection (10/16/18 07:31) Iohexol Injection (Omnipaque 350 Mg/Ml 1 (10/16/18 07:45) Received Contrast (Contrast Received) (10/16/18 07:45) Ns (Ivpb) (Sodium Chloride 0.9% Ivpb Bag (10/16/18 07:45) (DAREN ANGELES MD) Medications Given in ED Current Medications Medications Dose Ordered Sig/Lance Route Start Time Stop Time Status Last Admin Dose Admin Albuterol/ Ipratropium 3 ml ONCE ONCE INH 10/16/18 05:45 10/16/18 05:47 DC 10/16/18 05:46 3 ML Aspirin 324 mg ONCE ONCE PO 10/16/18 05:45 10/16/18 05:47 DC 10/16/18 06:00 324 MG Cefepime HCl 1000 mg/Sterile Water 10 ml @ 200 mls/hr ONCE ONCE IV 10/16/18 05:45 10/16/18 05:47 DC 10/16/18 06:41 200 MLS/HR Iohexol 100 ml ONCE ONCE IV 10/16/18 07:45 10/16/18 07:46 DC 10/16/18 07:59 100 ML Lorazepam 0.5 mg ONCE ONCE IVP 10/16/18 07:00 10/16/18 07:02 DC 10/16/18 07:08 0.5 MG Sodium Chloride 100 ml ONCE ONCE IV 10/16/18 07:45 10/16/18 07:47 DC 10/16/18 07:59 80 ML Sodium Chloride 500 ml @ 0 mls/hr Q0M ONCE IV 10/16/18 07:28 10/16/18 07:31 DC 10/16/18 08:08 500 MLS/HR (DAREN ANGELES MD) Vital Signs/I&O 10/16/18 10/16/18 10/16/18 10/16/18 05:32 05:35 07:19 09:05 Temp 99.4 Pulse 115 125 123 Resp 22 18 18 B/P (MAP) 94/57 (69) 102/83 (89) 107/60 (76) Pulse Ox 100 99 98 100 O2 Delivery Room Air Room Air Room Air Room Air (DAREN ANGELES MD) Progress Progress Note : Progress Note Seen and evaluated. Assumed care from Dr. Hassan at 0610. Essentially have both sepsis and cardiac workup in progress with labs, blood cultures, lactic acid, chest x-ray and EKG pending. Normal saline 1 L bolus ordered. 0700: Patient has had breathing treatment and cefepime IV as ordered by Dr. Hassan. She is shaky and anxious and complaining of chest discomfort with cough. Apparently she has been off some of her meds recently due to issues with getting into the doctor. Ativan 0.5 mg IV and Toradol 15 mg IV ordered. Monitor patient. 0923: Patient does have pneumonia on chest x-ray and confirmed on CT of the chest. She does not have pulmonary embolism. There is some mediastinal adenopathy of some concern that can be further evaluated later. She is her to have antibiotic. She will need admission and we will arrange that for here although may have some time spent in ED pending bed. Discussed the patient who agrees with plan. Admit , inpatient status. 025: I did discuss the case with Dr. Nance and she accepts patient for admission (DAREN ANGELES MD) Initial ECG Impression Date: Oct 16, 2018 Initial ECG Impression Time: 05:39 Initial ECG Rate: 116 Initial ECG Rhythm: S.Tach Comment Sinus tachycardia with occasional PVC. Normal axis. No evidence of ST elevation GA. Similar but faster rate to September 14, 2018. Interpreted by me. (DAREN ANGELES MD) Diagnostic Imaging Diagonstic Imaging: Xray Plain Films/CT/US/NM/MRI: chest Comments [facility] [place] [place] NAME: ETELVINA ALONSO [facility] REC#: [id number] PT STATUS: REG ER : 1960 PHYSICIAN: LYDIA HASSAN MD ADMIT DATE: 10/16/18/ER Draft Date of Exam:10/16/18 CHEST PA/LAT (2 VIEW) INDICATION: Cough and congestion. Generalized malaise and weakness for 2-3 days. EXAMINATION: Two-view chest 10/16/2018 COMPARISON: 09/23/2018 FINDINGS: 2 views of the chest The heart is stable. Pulmonary vasculature is minimally prominent. There is tenting of the diaphragm on the right but the lungs are hyperinflated. There are densities at the lung bases more pronounced than on previous perhaps developing infiltrate with similar findings in the right midlung. No effusions. No pneumothorax. There are multiple clips and cam along midline. IMPRESSION: 1. Developing infiltrate in both lungs as above. Followup recommended. 2. Hyperinflation of the lungs. 3. Mild pulmonary vascular congestion. Dictated on workstation # [id number] Dict: 10/16/18 0741 Trans: 10/16/18 0909 [facility] [id number] Interpreted by: KHALIF ERVIN MD Electronically signed by: Diagonstic Imaging: CT Plain Films/CT/US/NM/MRI: chest Comments [facility] [place] [place] NAME: ETELVINA ALONSO [facility] REC#: [id number] PT STATUS: REG ER : 1960 PHYSICIAN: DAREN ANGELES MD ADMIT DATE: 10/16/18/ER Draft Date of Exam:10/16/18 CT ANGIO CHEST W INDICATION: Cough and chest pain. TECHNIQUE: CTA chest obtained with IV contrast bolus and axial slices and MIP reconstructions. FINDINGS: The pulmonary parenchymal vessels are well opacified with no CT evidence of pulmonary emboli. There is no evidence of aortic dissection or aneurysm. There is adenopathy in the precarinal region with node measuring about 2.1 x 1.5 cm, does appear slightly larger than on 09/06/2018. There is adenopathy in the right hilum with node measuring about 1.5 cm. This also appears to be new or increased compared to the prior study. There is some adenopathy in the left hilum inferiorly with node measuring about 1.5 x 1.0 cm. There is also subcarinal adenopathy. Patient has had previous sternotomy. There is no pleural or pericardial fluid. Lung parenchymal windows demonstrate an indeterminate density in the right upper lobe measuring about 3.6 cm. This was not present on 09/06/2018 and therefore is more likely due to infiltrate rather than underlying mass. Would recommend followup studies to resolution however to exclude underlying lesion. There are also some patchy areas of milder infiltrate in the right middle lobe and right lower lobe and left lower lobe. Visualized portions of the upper abdomen demonstrated diffuse inhomogeneity of the liver which may represent fatty change and/or chronic hepatocellular disease. This appears to have progressed compared to the previous study. There are some diaphragmatic pleural calcifications on the right side noted. The small left pleural effusion seen before has resolved. IMPRESSION: 1. No CT evidence of pulmonary emboli or aortic dissection. There is adenopathy in the mediastinum and jennifer which appears to be increased compared to the prior study. This could be reactive or neoplastic. There is a new area of parenchymal density in the right upper lobe which is more likely infiltrate rather than mass, but would recommend follow to resolution. There are some patchy areas of milder infiltrate in both lower lobes and in the right middle lobe. 2. There is new diffuse inhomogeneity of the liver which may represent fatty change and/or diffuse hepatocellular disease. There is evidence of previous sternotomy with underlying soft tissue swelling. Dictated on workstation # [id number] Dict: 10/16/18 0838 Trans: 10/16/18 0859 [id number] [id number] Interpreted by: ALEE RUEDA MD Electronically signed by: (DAREN ANGELES MD) Departure Communication (Admissions) Time/Spoke to Admitting Phy: 09:25 (DAREN ANGELES MD) Impression Primary Impression: Bilateral pneumonia Qualified Codes: J18.9 - Pneumonia, unspecified organism Disposition: ADMITTED INPATIENT Condition: Stable Admissions Decision to Admit Reason: Admit from ER (General) Decision to Admit/Date: Oct 16, 2018 Time/Decision to Admit Time: 09:25 (DAREN ANGELES MD) Departure-Patient Inst. Referrals: [facility] [place] (PCP) Primary Care Physician JOE VARMA APRN (Family) Primary Care Physician LYDIA HASSAN Oct 16, 2018 05:46 DAREN ANGELES MD Oct 16, 2018 07:08
[2018-10-16 05:58] LABS: BASOPHILS % (AUTO) 0 % (0-10); EOSINOPHILS # (AUTO) 0.1 10^3/uL (0.0-0.3); EOSINOPHILS % (AUTO) 1 % (0-10); HEMATOCRIT 37 % (35-52); HEMOGLOBIN 12.6 G/DL (11.5-16.0); LYMPHOCYTES # (AUTO) 0.4 X 10^3 (1.0-4.0); LYMPHOCYTES % (AUTO) 3 % (12-44); MEAN CORPUSCULAR HEMOGLOBIN 31 PG (25-34); MEAN CORPUSCULAR HGB CONC 34 G/DL (32-36); MEAN CORPUSCULAR VOLUME 92 FL (80-99); MEAN PLATELET VOLUME 9.1 FL (7.4-10.4); MONOCYTES # (AUTO) 0.2 X 10^3 (0.0-1.0); MONOCYTES % (AUTO) 2 % (0-12); NEUTROPHILS # (AUTO) 12.9 X 10^3 (1.8-7.8); NEUTROPHILS % (AUTO) 95 % (42-75); PLATELET COUNT 433 10^3/uL (130-400); RED CELL DISTRIBUTION WIDTH 12.9 % (10.0-14.5); WHITE BLOOD COUNT 13.6 10^3/uL (4.3-11.0)
[2018-10-16 06:08] LABS: MAGNESIUM 2.1 MG/DL (1.8-2.4)
[2018-10-16 06:11] LABS: INR 1.1 (0.8-1.4); PROTHROMBIN TIME PATIENT 14.6 SEC (12.2-14.7)
[2018-10-16 06:21] LABS: MYOGLOBIN SERUM 31.3 NG/ML (10.0-92.0)
[2018-10-16] MEDS ORDERED: LORazepam INJ 2 MG/ML (ATIVAN) VIAL IVP ONE (07:00)
[2018-10-16] MEDS ORDERED: KETOROLAC 30 MG/ML VIAL IVP STA (07:00)
[2018-10-16 07:02] LABS: ALBUMIN 3.8 GM/DL (3.2-4.5); BILIRUBIN,TOTAL 0.2 MG/DL (0.1-1.0); CALCIUM 9.5 MG/DL (8.5-10.1); CREATININE SERUM 1.1 MG/DL (0.60-1.30); POTASSIUM 3.6 MMOL/L (3.6-5.0); TOTAL PROTEIN 7.4 GM/DL (6.4-8.2)
[2018-10-16 07:04] LABS: LYMPHOCYTES % (MANUAL) 8 %; NEUTROPHILS % (MANUAL) 91 %
[2018-10-16 07:05] LABS: MONOCYTES % (MANUAL) 1 %
--- NOTE | 2018-10-16 07:17 | NUR ---
UP TO BSC
[2018-10-16] MEDS ORDERED: NS IV 500 ML 500 ML IV ONE (07:28)
[2018-10-16] MEDS ORDERED: fentaNYL INJECTION 100 MCG/2 ML AMP IVP STA (07:31)
[2018-10-16 07:33] LABS: BILIRUBIN,URINE NEGATIVE (NEGATIVE); CLARITY,URINE CLEAR; COLOR,URINE YELLOW; GLUCOSE, URINE (UA) NEGATIVE (NEGATIVE); KETONES,URINE NEGATIVE (NEGATIVE); LEUKOCYTE ESTERASE ,URINE NEGATIVE (NEGATIVE); NITRITE,URINE NEGATIVE (NEGATIVE); PH,URINE 6 (5-9); PROTEIN,URINE 1+ (NEGATIVE); UROBILINOGEN,URINE NORMAL (NORMAL)
[2018-10-16] MEDS ORDERED: IOHEXOL 350 MG/ML 100 ML (OMNIPAQUE 350) VIAL IV ONE (07:45)
[2018-10-16] MEDS ORDERED: RECEIVED CONTRAST 20 ML VIAL IV SCH (07:45)
[2018-10-16] MEDS ORDERED: NS 100 ML (IVPB) BAG IV ONE (07:45)
--- NOTE | 2018-10-16 07:53 | NUR ---
TO CT PER CART.
[2018-10-16 07:55] LABS: BACTERIA,URINE TRACE /HPF; WBC,URINE 0-2 /HPF
--- NOTE | 2018-10-16 08:11 | NUR ---
LAB HERE TO DRAW REPEAT LATIC ACID.
--- NOTE | 2018-10-16 08:59 | Diagnostic Imaging Report ---
INDICATION: Cough and chest pain. TECHNIQUE: CTA chest obtained with IV contrast bolus and axial slices and MIP reconstructions. FINDINGS: The pulmonary parenchymal vessels are well opacified with no CT evidence of pulmonary emboli. There is no evidence of aortic dissection or aneurysm. There is adenopathy in the precarinal region with node measuring about 2.1 x 1.5 cm, does appear slightly larger than on 09/06/2018. There is adenopathy in the right hilum with node measuring about 1.5 cm. This also appears to be new or increased compared to the prior study. There is some adenopathy in the left hilum inferiorly with node measuring about 1.5 x 1.0 cm. There is also subcarinal adenopathy. Patient has had previous sternotomy. There is no pleural or pericardial fluid. Lung parenchymal windows demonstrate an indeterminate density in the right upper lobe measuring about 3.6 cm. This was not present on 09/06/2018 and therefore is more likely due to infiltrate rather than underlying mass. Would recommend followup studies to resolution however to exclude underlying lesion. There are also some patchy areas of milder infiltrate in the right middle lobe and right lower lobe and left lower lobe. Visualized portions of the upper abdomen demonstrated diffuse inhomogeneity of the liver which may represent fatty change and/or chronic hepatocellular disease. This appears to have progressed compared to the previous study. There are some diaphragmatic pleural calcifications on the right side noted. The small left pleural effusion seen before has resolved. IMPRESSION: 1. No CT evidence of pulmonary emboli or aortic dissection. There is adenopathy in the mediastinum and jennifer which appears to be increased compared to the prior study. This could be reactive or neoplastic. There is a new area of parenchymal density in the right upper lobe which is more likely infiltrate rather than mass, but would recommend follow to resolution. There are some patchy areas of milder infiltrate in both lower lobes and in the right middle lobe. 2. There is new diffuse inhomogeneity of the liver which may represent fatty change and/or diffuse hepatocellular disease. There is evidence of previous sternotomy with underlying soft tissue swelling. Dictated by: Dictated on workstation # [id number]
--- NOTE | 2018-10-16 09:10 | Diagnostic Imaging Report ---
INDICATION: Cough and congestion. Generalized malaise and weakness for 2-3 days. EXAMINATION: Two-view chest 10/16/2018 COMPARISON: 09/23/2018 FINDINGS: 2 views of the chest The heart is stable. Pulmonary vasculature is minimally prominent. There is tenting of the diaphragm on the right but the lungs are hyperinflated. There are densities at the lung bases more pronounced than on previous perhaps developing infiltrate with similar findings in the right midlung. No effusions. No pneumothorax. There are multiple clips and cam along midline. IMPRESSION: 1. Developing infiltrate in both lungs as above. Followup recommended. 2. Hyperinflation of the lungs. 3. Mild pulmonary vascular congestion. Dictated by: Dictated on workstation # [id number]
--- NOTE | 2018-10-16 09:37 | NUR ---
CALLED FOR ROOM
[2018-10-16] MEDS ORDERED: ACETAMINOPHEN 325 MG TABLET PO STA (10:14)
[2018-10-16] MEDS ORDERED: fentaNYL INJECTION 100 MCG/2 ML AMP IVP ONE (10:30)
[2018-10-16] MEDS ORDERED: ONDANSETRON 4 MG/2 ML (SDV) Z0FRAN IV PRN (11:45)
[2018-10-16] MEDS ORDERED: ACETAMINOPHEN 325 MG TABLET PO PRN (11:45)
[2018-10-16] MEDS: NS IV 1000 ML 1,000 ML IV SCH ×2 (11:51→22:03)
--- NOTE | 2018-10-16 12:26 | NUR ---
1215 , PT RESTLESS AND ATTEMPTING TO GET OUT OF BED, PT MOANING OUT AND NOT ABLE TO ANSWER QUESTIONS APPROPRIATELY, PT MUMBLES WHEN ASKED QUESTIONS. DR JERONIMO NOTIFIED AND NEW ORDERS RECEIVED. THIS RN SPOKE TO PT'S SISTER WHOM SHE LIVES WITH AND SISTER (LENO) STATES THAT PT HASN'T BEEN FEELING WELL FOR THE LAST COUPLE OF DAYS. NEW ORDERS RECEIVED ATIVAN GIVEN. WILL CONTINUE TO MONITOR.
[2018-10-16] MEDS ORDERED: LORazepam INJ 2 MG/ML (ATIVAN) VIAL IVP PRN (12:30)
--- NOTE | 2018-10-16 13:21 | NUR ---
PT CONTINUES TO BE MOANING OUT STILL UNABLE TO ANSWER QUESTIONS UNABLE TO FOLLOW COMMANDS, DR JERONIMO NOTIFIED AND NEW ORDERS RECEIVED. THIS RN REMAINS IN ROOM AT THIS TIME.
[2018-10-16] MEDS ORDERED: risperiDONE 0.25 MG (RisperDAL) TAB PO NR (13:30)
--- NOTE | 2018-10-16 14:56 | History & Physicial (CHS) ---
HPI History of Present Illness: 58 yo female admitted via ER due to cough and chest pain, found to have suspected right upper lobe pneumonia. She had CABG Jul 2018 and was hospitalized with pneumonia afterward. She has non-healing wounds on legs from her graft sites. Upon arrival to the floor she was relatively sedated, she did receive fentanyl and lorazepam in the ER. When she started to become more alert , she became agitated and trying to get out of bed. She is not speaking intelligible words, but did say "okay" once when instructed to leave IV alone. She is writhing in bed and moaning, but does not answer questions as to location of discomfort. Her sister reports she has had bad reaction to ativan in the past. Exam Limitations: clinical condition Date seen by provider: Oct 16, 2018 Time Seen by Provider: 14:45 Attending Physician Nina Nance MD PCP Center/[facility] Consult Date of Admission Oct 16, 2018 at 10:33 Home Medications Home Medications Reviewed patient Home Medication Reconciliation performed by pharmacy medication reconciliations cardiac cath technician and/or nursing. Patients Allergies have been reviewed. Allergies Coded Allergies: No Known Drug Allergies (Unverified , 08/23/18) HHV-Wusefb-Nttzsm Hx Patient Social History Alcohol Use: Denies Use Recreational Drug Use: No Smoking Status: Former Smoker Type Used: Cigarettes 2nd Hand Smoke Exposure: Yes Recent Foreign Travel: No Contact w/other who traveled: No Recent Hopitalizations: No Recent Infectious Disease Expo: No Physical Abuse Screen: No Sexual Abuse: No Immunizations Up To Date Tetanus Booster (TDap): Unknown Date of Pneumonia Vaccine: Jul 17, 2017 Date of Influenza Vaccine: Aug 03, 2018 Past Medical History PMHx: Coronary artery disease, s/p CABG 07/2018 Anxiety Chronic pain HTN RLS PSurgHx: CABG Family Medical History Significant Family History: No Pertinent Family Hx Review of Systems (CHC) Constitutional: other (unable to obtain due to clinical state) Reviewed Test Results Reviewed Test Results Lab Laboratory Tests Test 10/16/18 05:46 10/16/18 06:15 10/16/18 07:18 10/16/18 08:15 Range/Units White Blood Count 13.6 H 4.3-11.0 10^3/uL Red Blood Count 4.02 L 4.35-5.85 10^6/uL Hemoglobin 12.6 11.5-16.0 G/DL Hematocrit 37 35-52 % Mean Corpuscular Volume 92 80-99 FL Mean Corpuscular Hemoglobin 31 25-34 PG Mean Corpuscular Hemoglobin Concent 34 32-36 G/DL Red Cell Distribution Width 12.9 10.0-14.5 % Platelet Count 433 H 130-400 10^3/uL Mean Platelet Volume 9.1 7.4-10.4 FL Neutrophils (%) (Auto) 95 H 42-75 % Lymphocytes (%) (Auto) 3 L 12-44 % Monocytes (%) (Auto) 2 0-12 % Eosinophils (%) (Auto) 1 0-10 % Basophils (%) (Auto) 0 0-10 % Neutrophils # (Auto) 12.9 H 1.8-7.8 X 10^3 Lymphocytes # (Auto) 0.4 L 1.0-4.0 X 10^3 Monocytes # (Auto) 0.2 0.0-1.0 X 10^3 Eosinophils # (Auto) 0.1 0.0-0.3 10^3/uL Basophils # (Auto) 0.0 0.0-0.1 10^3/uL Neutrophils % (Manual) 91 % Lymphocytes % (Manual) 8 % Monocytes % (Manual) 1 % Prothrombin Time 14.6 12.2-14.7 SEC INR Comment 1.1 0.8-1.4 Activated Partial Thromboplast Time 43 H 24-35 SEC Sodium Level 132 L 135-145 MMOL/L Potassium Level 3.6 3.6-5.0 MMOL/L Chloride Level 100 98-107 MMOL/L Carbon Dioxide Level 16 L 21-32 MMOL/L Anion Gap 16 H 5-14 MMOL/L Blood Urea Nitrogen 11 7-18 MG/DL Creatinine 1.10 0.60-1.30 MG/DL Estimat Glomerular Filtration Rate 51 BUN/Creatinine Ratio 10 Glucose Level 103 70-105 MG/DL Calcium Level 9.5 8.5-10.1 MG/DL Corrected Calcium 9.7 8.5-10.1 MG/DL Magnesium Level 2.1 1.8-2.4 MG/DL Total Bilirubin 0.2 0.1-1.0 MG/DL Aspartate Amino Transf (AST/SGOT) 21 5-34 U/L Alanine Aminotransferase (ALT/SGPT) 10 0-55 U/L Alkaline Phosphatase 50 40-136 U/L Myoglobin 31.3 10.0-92.0 NG/ML Troponin I < 0.028 <0.028 NG/ML Total Protein 7.4 6.4-8.2 GM/DL Albumin 3.8 3.2-4.5 GM/DL Lactic Acid Level 2.72 *H 2.92 *H 0.50-2.00 MMOL/L Urine Color YELLOW Urine Clarity CLEAR Urine pH 6 5-9 Urine Specific Pease 1.010 L 1.016-1.022 Urine Protein 1+ H NEGATIVE Urine Glucose (UA) NEGATIVE NEGATIVE Urine Ketones NEGATIVE NEGATIVE Urine Nitrite NEGATIVE NEGATIVE Urine Bilirubin NEGATIVE NEGATIVE Urine Urobilinogen NORMAL NORMAL MG/DL Urine Leukocyte Esterase NEGATIVE NEGATIVE Urine RBC (Auto) NEGATIVE NEGATIVE Urine RBC NONE /HPF Urine WBC 0-2 /HPF Urine Squamous Epithelial Cells 2-5 /HPF Urine Crystals NONE /LPF Urine Bacteria TRACE /HPF Urine Casts NONE /LPF Urine Mucus NEGATIVE /LPF Urine Culture Indicated CULTURE PENDING Test 10/16/18 12:40 Range/Units Lactic Acid Level 1.94 0.50-2.00 MMOL/L Radiology CTA chest 10/16: IMPRESSION: 1. No CT evidence of pulmonary emboli or aortic dissection. There is adenopathy in the mediastinum and jennifer which appears to be increased compared to the prior study. This could be reactive or neoplastic. There is a new area of parenchymal density in the right upper lobe which is more likely infiltrate rather than mass, but would recommend follow to resolution. There are some patchy areas of milder infiltrate in both lower lobes and in the right middle lobe. 2. There is new diffuse inhomogeneity of the liver which may represent fatty change and/or diffuse hepatocellular disease. There is evidence of previous sternotomy with underlying soft tissue swelling. Physical Exam-([facility]) Physical Exam Vital Signs VS - Last 72 Hours, by Label 10/16/18 10/16/18 10/16/18 10/16/18 05:32 05:35 07:19 09:05 Temp 99.4 Pulse 115 125 123 Resp 22 18 18 B/P (MAP) 94/57 (69) 102/83 (89) 107/60 (76) Pulse Ox 100 99 98 100 O2 Delivery Room Air Room Air Room Air Room Air 10/16/18 10/16/18 10/16/18 10:43 11:05 11:15 Temp 98.8 Pulse 130 128 Resp 18 16 B/P (MAP) 121/39 (66) 118/58 Pulse Ox 96 94 95 O2 Delivery Room Air Room Air Room Air Capillary Refill : Less Than 3 Seconds General Appearance: severe distress (writhing in bed and moaning), thin Eyes: Bilateral Eye PERRL HEENT: No scleral icterus (R), No scleral icterus (L) Respiratory: accessory muscle use, rhonchi Cardiovascular: no edema, no murmur, tachycardia Gastrointestinal: normal bowel sounds, distended, tenderness Extremities: no pedal edema Neurologic/Psychiatric: other (disoriented, mumbling, does not answer questions , but does open eyes to name, did squeeze both hands on command, otherwise not following directions. Pupils reactive, moving all extremities equally and no facial asymetry or droop noted.) Skin: rash (flat erythematous 3-5 mm rounded lesions on left buttock/flank area , bilateral long incisions on inner legs with areas of opening with scab overlying, no surrounding erythema or active drainage) Assessment/Plan Assessment/Plan Admission Dx Pneumonia Admission Status: Inpatient Order (span 2 midnights) Reason for Inpatient Admission: Pneumonia with underlying heart disease, high risk for complications. (1) Altered mental status Status: Acute Assessment & Plan: Patient with apparently normal mental status on admission, now markedly confused and not answering questions appropriately. Suspect delirium, maybe related to fentanyl and lorazepam as well as underlying pneumonia. Family does note she has had delirium with sepsis in the past. Recheck labs, check ABG and KUB given abdominal pain. Hesitate to add more sedating medications at this time, will try to continue with reorienting and minimizing lines, etc and wait for medication to wear off. However, if unable to maintain safety in bed without pulling IV, etc, may need to consider anti- psychotic. Qualifiers: Qualified Codes: R41.0 - Disorientation, unspecified (2) Bilateral pneumonia Status: Acute Assessment & Plan: Cefepime started in ER, will continue. No hypoxia, but with AMS, concern for hypercapnia, will check ABG. Qualifiers: Qualified Codes: J18.9 - Pneumonia, unspecified organism (3) Abdominal pain Status: Acute Assessment & Plan: Unable to provide history and has marked ttp, will get KUB. Qualifiers: Qualified Codes: R10.84 - Generalized abdominal pain (4) CAD (coronary artery disease) Status: Chronic Assessment & Plan: s/p CABG, history of heart failure. Check BNP and repeat troponin (initial troponin negative). (5) Sepsis Status: Acute Assessment & Plan: Secondary to pneumonia, lactic acidosis resolved with IVF. (6) Hyponatremia Status: Acute Assessment & Plan: Suspect combination of pneumonia and possibly heart failure vs poor intake. Not severe enough to explain AMS, will monitor. (7) High anion gap metabolic acidosis Status: Acute Assessment & Plan: Suspect due to lactic acidosis, repeating labs. (8) DVT prophylaxis Status: Acute Assessment & Plan: Enoxaparin NINA NANCE MD Oct 16, 2018 14:56
[2018-10-16 15:07] LABS: AMPHETAMINE SCREEN, URINE NEGATIVE (NEGATIVE); BARBITURATE SCREEN URINE POSITIVE (NEGATIVE); BENZODIAZEPINES SCREEN URINE NEGATIVE (NEGATIVE); CANNABINOID SCREEN, URINE NEGATIVE (NEGATIVE); COCAINE SCREEN URINE NEGATIVE (NEGATIVE); METHADONE STAT NEGATIVE (NEGATIVE); METHAMPHETAMINE SCREEN URINE S NEGATIVE (NEGATIVE); OPIATE SCREEN URINE NEGATIVE (NEGATIVE); OXYCODONE STAT NEGATIVE (NEGATIVE); PROPOXYPHENE STAT NEGATIVE (NEGATIVE); TRICYCLIC ANTIDEPRESSANTS SCRE NEGATIVE (NEGATIVE)
[2018-10-16 15:11] LABS: BASOPHILS % (AUTO) 0 % (0-10); EOSINOPHILS % (AUTO) 0 % (0-10); HEMATOCRIT 34 % (35-52); HEMOGLOBIN 11.3 G/DL (11.5-16.0); LYMPHOCYTES # (AUTO) 0.4 X 10^3 (1.0-4.0); LYMPHOCYTES % (AUTO) 3 % (12-44); MEAN CORPUSCULAR HEMOGLOBIN 31 PG (25-34); MEAN CORPUSCULAR HGB CONC 34 G/DL (32-36); MEAN CORPUSCULAR VOLUME 91 FL (80-99); MEAN PLATELET VOLUME 9.4 FL (7.4-10.4); MONOCYTES # (AUTO) 0.2 X 10^3 (0.0-1.0); MONOCYTES % (AUTO) 2 % (0-12); NEUTROPHILS # (AUTO) 13.3 X 10^3 (1.8-7.8); NEUTROPHILS % (AUTO) 95 % (42-75); PLATELET COUNT 457 10^3/uL (130-400); RED CELL DISTRIBUTION WIDTH 12.9 % (10.0-14.5); WHITE BLOOD COUNT 13.9 10^3/uL (4.3-11.0)
[2018-10-16] MEDS ORDERED: LISI-556 PO (15:25)
[2018-10-16] MEDS ORDERED: DULO30CA3 PO (15:25)
[2018-10-16] MEDS ORDERED: ASPI-999 PO (15:25)
[2018-10-16] MEDS ORDERED: AMIO200T4 PO (15:25)
[2018-10-16] MEDS ORDERED: METO-387 PO (15:25)
[2018-10-16] MEDS ORDERED: [UNRECOGNIZED DRUG - CODE] TOP (15:25)
[2018-10-16] MEDS ORDERED: BENZ100C18 PO (15:25)
[2018-10-16] MEDS ORDERED: VARE1TAB22 PO (15:25)
[2018-10-16] MEDS ORDERED: ONDN4T PO (15:25)
[2018-10-16 15:27] LABS: ABG BASE EXCESS -9.2 MMOL/L (-2.5-2.5); ABG OXYGEN SATURATION 73 % (94-100); ABG PCO2 31 MMHG (35-45); ABG PO2 40 MMHG (79-93); ABG TCO2 16.5 MMOL/L (21.0-31.0)
[2018-10-16 15:32] LABS: ABG PH 7.32 (7.37-7.43)
[2018-10-16 15:33] LABS: ALANINE AMINOTRANSFERASE 14 U/L (0-55); ALBUMIN 3.5 GM/DL (3.2-4.5); ALKALINE PHOSPHATASE 40 U/L (40-136); BILIRUBIN,TOTAL 0.2 MG/DL (0.1-1.0); BUN/CREATININE RATIO 10; CARBON DIOXIDE 13 MMOL/L (21-32); CHLORIDE 114 MMOL/L (98-107); CREATININE SERUM 0.78 MG/DL (0.60-1.30); GFR ESTIMATED > 60; GLUCOSE 95 MG/DL (70-105); LIPASE < 4 U/L (8-78); POTASSIUM 4.2 MMOL/L (3.6-5.0); SODIUM 141 MMOL/L (135-145); TOTAL PROTEIN 6.5 GM/DL (6.4-8.2)
[2018-10-16 15:33] LABS: ALLENS TEST POSITIVE; INSPIRED O2 ROOM AIR; PATIENT TEMP 99.5; VENTILATOR NO
[2018-10-16] MEDS ORDERED: GABA800T10 PO (16:06)
--- NOTE | 2018-10-16 16:07 | NUR ---
UNABLE TO SPEAK WITH THE PATIENT AT THIS TIME REGARDING HER MEDICATIONS. I CALLED SEVERAL PHARMACIES IN [facility] FOR LISTS OF RECENTLY FILLED MEDICATIONS WELL [facility] AND UPDATED THE MED REC WITH WHAT SHE HAS FILLED RECENTLY. WHEN SHE WAS ADMITTED IN AUGUST SHE HAD FILLED SEVERAL PRESCRIPTIONS AT [facility] HOWEVER SOME OF THOSE HAVE NOT BEEN REFILLED SINCE THAT DATE 08-03-18. WHEN SHE WAS DISCHARGED IN AUGUST [facility] FILLED SEVERAL PRESCRIPTIONS ON 08-17-18 THAT WERE THROUGH THE [facility], SEVERAL OF THOSE HAVE NOT BEEN REFILLED SINCE EITHER. I ONLY UPDATED THE MED REC WITH THE MEDS THAT ARE CURRENT AND WHAT WAS ON THE LIST FROM [facility]. [facility] FILLED: 10-11-18 TESSALON 200MG TID 14 DAY SUPPLY 10-11-18 CHANTIX 1MG DAILY 10-01-18 ZOFRAN 4MG 2 BID PRN 10-01-18 METOPROLOL SUCCINATE 25MG DAILY 10-01-18 LISINOPRIL 5MG DAILY 10-01-18 LIPITOR 20MG DAILY 09-12-18 BACTRIM DS BID X 7 DAYS [facility] FILLED: 10-09-18 GABAPENTIN 800MG QID [facility] FILLED: 09-24-18 H-CHLOR 0.125% SOLUTION 09-25-18 PULMICORT (NOT PICKED UP) 09-24-18 DUONEB (NOT PICKED UP) 09-24-18 CEFDINIR 300MG (NOT PICKED UP) 09-24-18 MEDROL DOSEPAK (NOT PICKED UP) 09-14-18 DAIKINS SOLUTION (NOT PICKED UP) 09-14-18 CLEOCIN 300MG (FINISHED) [facility] FILLED: 09-06-18 HYDROCODONE 5-325MG #30 (SHORT SUPPLY) 08-23-18 DOXYCYCLINE (NOT PICKED UP) 08-23-18 CLINDAMYCIN (NOT PICKED UP) 08-23-18 BACTROBAN (NOT PICKED UP) 2 CYMBALTA 30MG BID #60 08-17-18 PERCOCET 5-325MG Q4H PRN #30 (SHORT SUPPLY) 08-17-18 BACTRIM DS BID (FINISHED) 08-17-18 MIRALAX 08-17-18 FLUCONAZOLE 150MG DAILY X 10 DAYS (FINISHED) 08-17-18 AMIODARONE 200MG DAILY (STATED TO TAKE UNTIL 10-21-18) 08-17-18 KLOR CON 20MEQ DAILY #30 08-17-18 TOPROL XL 25MG DAILY #30 08-17-18 LISINOPRIL 5MG DAILY #30 08-17-18 ZOLOFT 50MG HS #30 08-17-18 ASPIRIN 81MG DAILY #30 08-17-18 CEFDINIR 300MG BID #10 08-17-18 METOPROLOL XL 50MG DAILY (THIS WAS STOPPED AT DISCHARGE, NOT SURE WHY IT WAS FILLED) OTC MEDS REPORTED: ASPIRIN AND MELATONIN PRN THE LIST [facility] FAXED OVER INCLUDED: CHANTIX 1MG BID ZOFRAN 4MG 2 BID PRN METOPROLOL ER 25MG DAILY LISINOPRIL 5MG DAILY ATORVASTATIN 20MG DAILY GABAPENTIN 800MG QID BACTRIM (I ASSUMED SHORT TERM AND DID NOT INCLUDE ON MED REC) FAMOTIDINE 20MG HS (NOT FILLED BY PHARMACY AND WAS STOPPED ON AUG DISCHARGE, DID NOT INCLUDE ON MED REC AT THIS TIME) FUROSEMIDE 20MG DAILY (NEVER PRESCRIBED BY [facility], WAS REPORTED BY PATIENT, HAS NOT FILLED SINCE JULY FOR 7 DAY SUPPLY, DID NOT INCLUDE ON MED REC) BEVESPI (NEVER PRESCRIBED BY [facility], NEVER FILLED THAT I CAN FIND, NO SAMPLES GIVEN BY [facility], DID NOT INCLUDE ON MED REC AT THIS TIME. IN ADDITION TO THE LIST FROM [facility] I ADDED THE CYMBALTA THAT [facility] RECENTLY FILLED AND THE H CHLOR FILLED AT [facility] AND THE 2 OTC MEDS ASPIRIN AND MELATONIN. [facility] DID NOT SEEM TO HAVE RECORDS OF THE AUGUST ADMISSION TO [facility] SO THEY DID NOT HAVE THOSE MEDS THAT WERE PRESCRIBED AT THAT DISCHARGE BUT THEY ARE PAST DUE FOR REFILL NOW SO NOT INCLUDED ON MED REC.
[2018-10-16] MEDS ORDERED: DAKIN'S 1/4 STRENGTH (0.125%) 473 ML BTL TOP SCH (16:15)
[2018-10-16] MEDS ORDERED: BENZONATATE 100 MG (TESSALON) CAPSULE PO PRN (16:15)
[2018-10-16] MEDS: ENOXAPARIN 40 MG/0.4 ML (LOVENOX) SYR SC SCH (16:23)
[2018-10-16] MEDS: GABAPENTIN 400 MG (NEURONTIN) CAP PO SCH ×2 (16:24→21:13)
[2018-10-16] MEDS ORDERED: ONDANSETRON 8 MG (ZOFRAN) ORAL DISSOLVE TAB PO PRN (16:30)
--- NOTE | 2018-10-16 16:50 | Diagnostic Imaging Report ---
INDICATION: Abdominal pain. TIME OF EXAM: 03:23 p.m. A single portable view of the abdomen was obtained. Bladder is moderately distended by contrast from recent IV contrast study. Bowel gas pattern is nonobstructive. No definite pathologic lesions are seen. IMPRESSION: No acute abnormalities detected. Dictated by: Dictated on workstation # [id number]
[2018-10-16] MEDS: CEFEPIME 2,000 MG/SWFI 20 ML IV PUSH IV SCH ×2 (17:43)
--- NOTE | 2018-10-16 17:58 | NUR ---
PT TEMP AT 100.6 AND PT CONTINUES TO MOAN OUT, SISTER AT BEDSIDE, DR JERONIMO NOTIFIED AND NEW ORDERS RECEIVED. PT HAS BEEN RESTING INTERMITTENTLY SINCE SISTER ARRIVED EARLIER.
[2018-10-16] MEDS ORDERED: ACETAMINOPHEN 650 MG SUPP (TYLENOL) PR PRN (18:00)
[2018-10-16] MEDS ORDERED: KETOROLAC 30 MG/ML VIAL ONE (18:00)
[2018-10-16] MEDS: KETOROLAC 30 MG/ML VIAL IVP PRN (18:02)
[2018-10-16] MEDS ORDERED: RT-ALBUTEROL/IPRATROPIUM 3 ML (DUONEB) VIAL INH PRN (18:30)
[2018-10-16] MEDS ORDERED: MELATONIN 3 MG TABLET PO PRN (21:00)
[2018-10-16] MEDS: DULoxetine 30 MG (CYMBALTA) CAP PO SCH (21:13)
[2018-10-16] MEDS: ATORVASTATIN 20 MG (LIPITOR) TABLET PO SCH (21:13)
[2018-10-16] MEDS: RT-BUDESONIDE NEBS 0.5 MG/2ML (PULMICORT) AMP INH SCH (21:50)
[2018-10-16] MEDS: RT-ALBUTEROL/IPRATROPIUM 3 ML (DUONEB) VIAL INH SCH (21:50)
[2018-10-16] MEDS ORDERED: morphine INJ 4 MG/ML 1 ML (VIAL/SYRINGE) ONE (22:21)
[2018-10-16] MEDS: morphine INJ 4 MG/ML 1 ML (VIAL/SYRINGE) IVP PRN (22:24)
--- NOTE | 2018-10-16 22:31 | NUR ---
PT MOANING OUT, VERY RESTLESS, TRYING TO CRAWL OUT OF THE BED, AND CRYING. SISTER AT BEDSIDE. DR JERONIMO NOTIFIED AND NEW ORDERS RECEIVED. WILL CONTINUE TO MONITOR
[2018-10-17] VITALS (21 sets, daily range): BP systolic 66–192; BP diastolic 37–70
[2018-10-17] MEDS: HALOPERIDOL 5 MG/ML (HALDOL) AMP IM PRN ×4 (00:03→12:46)
[2018-10-17] MEDS: RT-ALBUTEROL/IPRATROPIUM 3 ML (DUONEB) VIAL INH SCH ×5 (01:46→22:30)
[2018-10-17] MEDS: morphine INJ 4 MG/ML 1 ML (VIAL/SYRINGE) IVP PRN ×4 (02:02→13:22)
[2018-10-17] MEDS: KETOROLAC 30 MG/ML VIAL IVP PRN ×2 (03:29→09:54)
[2018-10-17 05:55] LABS: BASOPHILS % (AUTO) 0 % (0-10); EOSINOPHILS % (AUTO) 0 % (0-10); HEMATOCRIT 32 % (35-52); HEMOGLOBIN 10.8 G/DL (11.5-16.0); LYMPHOCYTES # (AUTO) 1.1 X 10^3 (1.0-4.0); LYMPHOCYTES % (AUTO) 12 % (12-44); MEAN CORPUSCULAR HEMOGLOBIN 32 PG (25-34); MEAN CORPUSCULAR HGB CONC 34 G/DL (32-36); MEAN CORPUSCULAR VOLUME 92 FL (80-99); MEAN PLATELET VOLUME 9.6 FL (7.4-10.4); MONOCYTES # (AUTO) 0.5 X 10^3 (0.0-1.0); MONOCYTES % (AUTO) 5 % (0-12); NEUTROPHILS # (AUTO) 7.6 X 10^3 (1.8-7.8); NEUTROPHILS % (AUTO) 83 % (42-75); PLATELET COUNT 351 10^3/uL (130-400); RED CELL DISTRIBUTION WIDTH 12.9 % (10.0-14.5); WHITE BLOOD COUNT 9.3 10^3/uL (4.3-11.0)
[2018-10-17] MEDS: CEFEPIME 2,000 MG/SWFI 20 ML IV PUSH IV SCH ×6 (05:57→18:35)
[2018-10-17 06:09] LABS: ALANINE AMINOTRANSFERASE 18 U/L (0-55); ALKALINE PHOSPHATASE 32 U/L (40-136); BILIRUBIN,TOTAL 0.2 MG/DL (0.1-1.0); BUN/CREATININE RATIO 22; CALCIUM 9.1 MG/DL (8.5-10.1); CARBON DIOXIDE 14 MMOL/L (21-32); CHLORIDE 120 MMOL/L (98-107); CHOLESTEROL 97 MG/DL (< 200); CREATININE SERUM 0.65 MG/DL (0.60-1.30); GFR ESTIMATED > 60; GLUCOSE 104 MG/DL (70-105); HDL CHOLESTEROL 28 MG/DL (40-60); POTASSIUM 3.5 MMOL/L (3.6-5.0); SODIUM 143 MMOL/L (135-145); TOTAL PROTEIN 5.9 GM/DL (6.4-8.2); TRIGLYCERIDES 79 MG/DL (<150); VLDL CHOLESTEROL 16 MG/DL (5-40)
[2018-10-17] MEDS: RT-BUDESONIDE NEBS 0.5 MG/2ML (PULMICORT) AMP INH SCH ×2 (07:18→18:30)
[2018-10-17] MEDS ORDERED: ROCURONIUM 10 MG/ML 5 ML SYRINGE IV ONE (07:41)
[2018-10-17] MEDS ORDERED: MIDAZOLAM 5 MG/5 ML (VERSED) VIAL INJ ONE (07:41)
[2018-10-17] MEDS: NS IV 1000 ML 1,000 ML IV SCH (08:15)
[2018-10-17] MEDS: lisINopril 5 MG (PRINIVIL) TABLET PO SCH (09:08)
[2018-10-17] MEDS: GABAPENTIN 400 MG (NEURONTIN) CAP PO SCH ×4 (09:09→21:59)
[2018-10-17] MEDS: DULoxetine 30 MG (CYMBALTA) CAP PO SCH ×2 (09:09→21:59)
[2018-10-17] MEDS: ASPIRIN 81 MG CHEW (CHILDREN'S ASA) PO SCH (09:09)
[2018-10-17] MEDS: AMIODARONE 200 MG (CORDARONE) TAB PO SCH (09:09)
[2018-10-17] MEDS: 1/2 NS IV SOLUTION 1,000 ML IV SCH ×3 (09:24→19:01)
[2018-10-17] MEDS: POTASSIUM CL 10MEQ/50ML IVPB 50 ML IV SCH ×7 (09:24→21:23)
[2018-10-17] MEDS: DAKIN'S 1/4 STRENGTH (0.125%) 473 ML BTL TOP SCH ×2 (10:28→21:59)
[2018-10-17] MEDS ORDERED: HALOPERIDOL 5 MG/ML (HALDOL) AMP IM PRN (14:15)
[2018-10-17] MEDS ORDERED: PROPOFOL DRIP (ICU) 100 ML IV ONE ×2 (14:32→22:07)
[2018-10-17] MEDS ORDERED: NS IV 1000 ML 1,000 ML ONE ×3 (14:36→15:18)
--- NOTE | 2018-10-17 14:47 | Consultation-Cardiology ---
HPI-Cardiology Cardiology Consultation Date of Consultation 10/17/18 Date of Admission Time Seen by Provider: 14:39 Indication: Tachycardia HPI Patient is a 58 y/o female with history of CAD, HTN, COPD with history of pneumonia earlier this year. Admitted for bilateral pneumonia. Consulted for hx of CAD and tachycardia. Upon entering patients room she appears to be in acute respiratory failure. Dr. Ramirez consulted and at bedside. Patient is unresponsive and unable to obtain H&P. 58 years old lady with history of coronary artery disease, advanced COPD, multiple hospitalization for pneumonia and general deconditioning. I was consulted to evaluate the patient for her extensive cardiac history, patient appeared to be unresponsive, lethargic, thrashing and short of breath. It appear that she has been unresponsive today. I called Dr. Ramirez and Dr. Nance and arrange for ICU transfer and urgent intubation. Review of her record showed that she came to the hospital for increasing fatigue and lethargy. No chest pain was reported. No palpitation. No syncope. Home Medications & Allergies Allergies: Coded Allergies: No Known Drug Allergies (Unverified , 08/23/18) Home Medication List Reviewed: Yes [id number]-[id number]-Dednbu Hx Patient Social History Marital Status: Employed/Student: unemployed Alcohol Use: Denies Use Recreational Drug Use: No Smoking Status: Former Smoker Type Used: Cigarettes 2nd Hand Smoke Exposure: Yes Recent Foreign Travel: No Recent Infectious Disease Expo: No Recent Hopitalizations: No Physical Abuse Screen: No Sexual Abuse: No Immunizations Up To Date Tetanus Booster (TDap): Unknown Date of Pneumonia Vaccine: Jul 17, 2017 Date of Influenza Vaccine: Aug 03, 2018 Past Medical History CAD, CHF, COPD, HTN, HLP Family Medical History Significant Family History: No Pertinent Family Hx Family Medical Hx Unable to provide family history Review of Systems ROS-Unable to Obtain: unable to obtain. H&P obtained from reviewing chart Constitutional: No chills; weakness, other (unable to provide review of systems she is in acute respiratory failure) Reviewed Test Results Reviewed Test Results Lab Laboratory Tests 10/16/18 15:04: White Blood Count 13.9H, Red Blood Count 3.68L, Hemoglobin 11.3L, Hematocrit 34L , Mean Corpuscular Volume 91, Mean Corpuscular Hemoglobin 31, Mean Corpuscular Hemoglobin Concent 34, Red Cell Distribution Width 12.9, Platelet Count 457H, Mean Platelet Volume 9.4, Neutrophils (%) (Auto) 95H, Lymphocytes (%) (Auto) 3L , Monocytes (%) (Auto) 2, Eosinophils (%) (Auto) 0, Basophils (%) (Auto) 0, Neutrophils # (Auto) 13.3H, Lymphocytes # (Auto) 0.4L, Monocytes # (Auto) 0.2, Eosinophils # (Auto) 0.0, Basophils # (Auto) 0.0, Sodium Level 141, Potassium Level 4.2, Chloride Level 114#H, Carbon Dioxide Level 13L, Anion Gap 14, Blood Urea Nitrogen 8, Creatinine 0.78, Estimat Glomerular Filtration Rate > 60, BUN/ Creatinine Ratio 10, Glucose Level 95, Calcium Level 9.0, Corrected Calcium 9.4 , Total Bilirubin 0.2, Aspartate Amino Transf (AST/SGOT) 34, Alanine Aminotransferase (ALT/SGPT) 14, Alkaline Phosphatase 40, Troponin I < 0.028, B- Type Natriuretic Peptide 375.5H, Total Protein 6.5, Albumin 3.5, Lipase < 4L, Thyroid Stimulating Hormone (TSH) 0.40 10/16/18 15:12: Blood Gas Puncture Site RIGHT RADIAL, Blood Gas Patient Temperature 99.5, Arterial Blood pH 7.32*L, Arterial Blood Partial Pressure CO2 31L, Arterial Blood Partial Pressure O2 40L, Arterial Blood HCO3 16*L, Arterial Blood Total CO2 16.5L, Arterial Blood Oxygen Saturation 73L, Arterial Blood Base Excess - 9.2L, Dwight Test POSITIVE, Blood Gas Ventilator Setting NO, Blood Gas Inspired Oxygen ROOM AIR 10/17/18 05:40: White Blood Count 9.3, Red Blood Count 3.42L, Hemoglobin 10.8L, Hematocrit 32L, Mean Corpuscular Volume 92, Mean Corpuscular Hemoglobin 32, Mean Corpuscular Hemoglobin Concent 34, Red Cell Distribution Width 12.9, Platelet Count 351, Mean Platelet Volume 9.6, Neutrophils (%) (Auto) 83H, Lymphocytes (%) (Auto) 12 , Monocytes (%) (Auto) 5, Eosinophils (%) (Auto) 0, Basophils (%) (Auto) 0, Neutrophils # (Auto) 7.6, Lymphocytes # (Auto) 1.1, Monocytes # (Auto) 0.5, Eosinophils # (Auto) 0.0, Basophils # (Auto) 0.0, Sodium Level 143, Potassium Level 3.5L, Chloride Level 120H, Carbon Dioxide Level 14L, Anion Gap 9, Blood Urea Nitrogen 14, Creatinine 0.65, Estimat Glomerular Filtration Rate > 60, BUN/ Creatinine Ratio 22, Glucose Level 104, Calcium Level 9.1, Corrected Calcium 9.9 , Total Bilirubin 0.2, Aspartate Amino Transf (AST/SGOT) 40H, Alanine Aminotransferase (ALT/SGPT) 18, Alkaline Phosphatase 32L, Total Protein 5.9L, Albumin 3.0L, Triglycerides Level 79, Cholesterol Level 97, LDL Cholesterol Direct 37, VLDL Cholesterol 16, HDL Cholesterol 28L 10/17/18 14:30: Microbiology 10/16/18 Blood Culture - Preliminary, Resulted Probable Strep Pneumoniae 10/16/18 Influenza Types A,B Antigen (MARCY) - Final, Complete 10/16/18 Urine Culture - Final, Complete NO GROWTH Radiology CTA chest 10/16: IMPRESSION: 1. No CT evidence of pulmonary emboli or aortic dissection. There is adenopathy in the mediastinum and jennifer which appears to be increased compared to the prior study. This could be reactive or neoplastic. There is a new area of parenchymal density in the right upper lobe which is more likely infiltrate rather than mass, but would recommend follow to resolution. There are some patchy areas of milder infiltrate in both lower lobes and in the right middle lobe. 2. There is new diffuse inhomogeneity of the liver which may represent fatty change and/or diffuse hepatocellular disease. There is evidence of previous sternotomy with underlying soft tissue swelling. ECG Impression ECG Initial ECG Rhythm: S.Tach Physical Exam Vital Signs Vital Signs - First Documented 10/16/18 10/16/18 10/17/18 05:32 18:07 04:49 Temp 99.4 Pulse 115 Resp 22 B/P (MAP) 94/57 (69) Pulse Ox 100 O2 Delivery Room Air O2 Flow Rate 2.00 FiO2 21 Capillary Refill : Less Than 3 SecondsLess Than 3 Seconds Height, Weight, BMI Height: 5'3.00" Weight: 116lbs. 6.0oz. 52.356679mb; 24.9 BMI Method:Stated General Appearance: Severe Distress Neck: Full Range of Motion, Supple Respiratory: Crackles, Rales, Respiratory Distress, Rhonci Cardiovascular: No Edema, No JVD, No Murmur, Tachycardia Gastrointestinal: No Pulsatile Mass, Soft Rectal: Deferred Extremity: No Pedal Edema Neurologic/Psychiatric: Disoriented Skin: Warm/Dry Lymphatic: No Adenopathy A/P-Cardiology Admission Diagnosis Acute respiratory failure Pneumonia COPD CAD Assessment/Plan Acute respiratory failure- Dr. Ramirez consulted and at bedside. Transfer to ICU and planning for intubation Bilateral pneumonia- currently on cefepime. Management per Dr. Ramirez and Dr. Nance. Tachycardia- secondary to pneumonia and resp failure. Congestive heart failure, echocardiogram 2017 showed preserved left ventricular systolic function. Coronary artery disease, status post myocardial infarction occurred early in July 2018, had CABG 4 done on July 30, 2018 in [place] and she was discharged and drove back to [place]. EKG showed diffuse T-wave inversion, baseline. COPD, acute exacerbation Depression post bypass surgery, maintained on Zoloft as outpatient. Hypertension, borderline hypotension at this time. continue to monitor BP/HR. Hyperlipidemia, on Lipitor, continue to monitor. Tobaccoism, patient has stopped smoking after her recent hospitalization and bypass surgery, encouraged to continue with smoking cessation Thank you for allowing us to participate in the management of Ms. Mora. This is Karmen Villatoro PA-C, as a scribe for Dr. Mckenzie. This is Dr. Mckenzie, I have seen and evaluated the patient with Karmen, discussed the management plan with Karmen and the consult and agree with the current scribed note. In summary this is a 58-year-old lady who had recent bypass surgery in [place] and came back to [place] late in July was hospitalized for pneumonia and COPD exacerbation, after prolonged hospitalization she improved and discharged. Return to the hospital for generalized weakness and appeared to have worsening pneumonia. She has oral thrush. Immunocompromise. Patient was unresponsive, I proceeded with calling Dr. Nance and Dr. Ramirez and transferred the patient to ICU where she was intubated. She is borderline hypotensive will need an arterial line and a central line. Continue on antibiotic. She has history of congestive heart failure with preserved left ventricular systolic function. Continue to monitor for now. I did a few minor modification to the above note using Italic Font Clinical Quality Measures DVT/VTE Risk/Contraindication: Risk Factor Score Per Nursin RFS Level Per Nursing on Admit: 2=Moderate KARMEN YOU Oct 17, 2018 2:47 pm SUPA MCKENZIE MD Oct 17, 2018 3:47 pm
--- NOTE | 2018-10-17 14:53 | Pulmonary Consultation ---
History of Present Illness History of Present Illness Date of Consultation 10/17/18 14:48 Time Seen by Provider: 14:48 Date of Admission Reason for Visit: Tachycardia History of Present Illness 58yo from [facility] with hx of CAD and CABG was admitted from ED 10/16 secondary to RUL pneumonia. She presented secondary persistent progressive cough and pleuritic midsternal CP. Pt has also had low grade fever. She has non- healing wounds on her legs from CABG. Pt was admitted with pneumonia to the 4th floor. I was called emergently by Dr. Mckenzie secondary to pt having respiratory distress. When I walked in room pt was lethargic and groaning. We transferred pt to ICU and intubated right away. I discussed with pt's son and he does want everything done. Unable to obtain ROS secondary to MS. Allergies and Home Medications Allergies Coded Allergies: No Known Drug Allergies (Unverified , 08/23/18) Home Medications Amiodarone HCl 200 Mg Tablet, 200 MG PO DAILY, (Reported) TAKE UNTIL 10-21-18 Aspirin 81 Mg Tab.chew, 81 MG PO DAILY, (Reported) Atorvastatin Calcium 20 Mg Tablet, 20 MG PO HS, (Reported) Benzonatate 100 Mg Capsule, 200 MG PO TID PRN for COUGH, (Reported) Duloxetine HCl 30 Mg Capsule.dr, 30 MG PO BID, (Reported) Gabapentin 800 Mg Tablet, 800 MG PO QID, (Reported) Lisinopril 5 Mg Tablet, 5 MG PO DAILY, (Reported) Melatonin 5 Mg Capsule, 5 MG PO HS PRN for SLEEP, (Reported) Metoprolol Succinate 25 Mg Tab.er.24h, 25 MG PO DAILY, (Reported) Ondansetron HCl 4 Mg Tab, 8 MG PO BID PRN for NAUSEA/VOMITING-1ST LINE, ( Reported) TAKES 2 (4MG) TABLETS Sodium Hypochlorite 473 Ml Solution, TOP BID, (Reported) PACK WOUND WITH 4X4 GAUZE AND CHANGE DRESSING TWICE DAILY Varenicline Tartrate 1 Mg Tablet, 1 MG PO BID, (Reported) Past Angmunl-Gtdybt-Mitozz Hx Past Med/Social Hx: Reviewed Nursing Past Med/Soc Hx Patient Social History Alcohol Use: Denies Use Recreational Drug Use: No Smoking Status: Former Smoker Type Used: Cigarettes Former Smoker, Quit: Jul 22, 2018 2nd Hand Smoke Exposure: Yes Recent Foreign Travel: No Contact w/Someone Who Travel: No Recent Infectious Disease Expo: No Recent Hopitalizations: No Immunizations Up To Date Tetanus Booster (TDap): Unknown PED Vaccines UTD: Yes Date of Pneumonia Vaccine: Jul 17, 2017 Date of Influenza Vaccine: Aug 03, 2018 Seasonal Allergies Seasonal Allergies: No Past Medical History Surgeries: Yes (CARPAL TUNNEL, OPEN HEART-4 VESSEL CABG 07/30/18) Cardiac, CABG, Hysterectomy, Oophorectomy, Open Heart Surgery, Orthopedic, Vascular Surgery Respiratory: Yes Asthma, Pneumonia, COPD Currently Using CPAP: No Currently Using BIPAP: No Cardiac: Yes (VT 07/2018 WITH 4 VESSEL CABG 07/30/18) Coronary Artery Disease, Heart Attack, High Cholesterol, Hypertension Neurological: No : No 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 6.0oz. 52.028135qv; 24.9 BMI Method:Stated Exam Exam Vital Signs Date Time Temp Pulse Resp B/P (MAP) Pulse Ox O2 Delivery O2 Flow Rate FiO2 10/17/18 13:43 88 Nasal Cannula 2.00 10/17/18 08:00 98.8 121 24 100/50 (67) 93 Nasal Cannula 2.00 10/17/18 07:29 Nasal Cannula 2.00 10/17/18 07:18 93 Nasal Cannula 2.00 10/17/18 04:49 98.9 125 24 108/62 (77) 93 Nasal Cannula 2.00 10/17/18 01:46 Room Air 10/17/18 00:43 98.7 130 26 110/53 (72) 93 Room Air 10/16/18 21:55 Room Air 10/16/18 21:50 Room Air 10/16/18 20:00 Room Air 10/16/18 19:07 99.8 137 30 116/79 (91) 94 Room Air 10/16/18 18:40 100.1 10/16/18 18:07 115 100 21 10/16/18 18:02 100.6 10/16/18 16:00 99.9 143 28 123/75 (91) 95 Room Air I & O 10/17/18 07:00 Intake Total 1020 ml Output Total 600 ml Balance 420 ml Height & Weight Height: 5'3.00" Weight: 116lbs. 6.0oz. 52.955049gt; 24.9 BMI Method:Stated General Appearance: Severe Distress, Other (lethargic) HEENT: PERRL/EOMI, Pharynx Normal, Moist Mucous Membranes Neck: Full Range of Motion Respiratory: Accessory Muscle Use, Crackles, Rales, Respiratory Distress Cardiovascular: No Edema, No JVD, No Murmur, Tachycardia Capillary Refill: Less Than 3 Seconds Gastrointestinal: normal bowel sounds, distended, tenderness Extremity: No Pedal Edema Neurologic/Psychiatric: Disoriented Skin: Warm/Dry Lymphatic: No Adenopathy Results Lab Laboratory Tests 10/16/18 05:46 10/16/18 15:04 10/17/18 05:40 Assessment/Plan Assessment/Plan Acute respiratory distress with altered mental status -Transfer to ICU -Give a 1 liter bolus -Pt needs to be intubated. She can not maintain her airway Metabolic encephalopathy - probably from sepsis -Await labs -IVF - -Possibly from meds Hypotension - probably secondary to sedation -Aggressive IVF -Will place central line Bilateral pneumonia -Continue cefepime Thrush -Add Diflucan CAD with hx of CABG -Cardiology is following Metabolic nonanion gapped acidosis -Bicarb -Give IVF Sinus tach -Check troponins -IVF Anemia -Monitor Hypokalemia -replace TATE JACKSON DO Oct 17, 2018 14:53
--- NOTE | 2018-10-17 15:00 | Progress Note (SOAP) ---
Subjective Subjective/Events-last exam Tmax 100.6, was more alert some yesterday evening, but intermittently confused and moaning. in room today states she is more comfortable sitting up and is currently sleeping relatively comfortably with HOB raised although with increased respiratory rate. Per nursing report however, in general she has been agitated and thrashing and has had some brief benefit with haldol, but only for 20-30 minutes at a time. Review of Systems Date Seen by Provider: Oct 17, 2018 Time Seen by Provider: 12:25 Focused Exam Lactate Level 10/16/18 08:15: Lactic Acid Level 2.92*H 10/16/18 12:40: Lactic Acid Level 1.94 10/17/18 14:30: Lactic Acid Level 1.07 Lactic Acid Level Laboratory Tests Test 10/17/18 14:30 Lactic Acid Level 1.07 MMOL/L (0.50-2.00) Objective Exam Last Set of Vital Signs Vital Signs Date Time Temp Pulse Resp B/P (MAP) Pulse Ox O2 Delivery O2 Flow Rate FiO2 10/17/18 13:43 88 Nasal Cannula 2.00 10/17/18 08:00 98.8 121 24 100/50 (67) 10/16/18 18:07 21 Capillary Refill : Less Than 3 SecondsLess Than 3 Seconds I&O Intake and Output 10/17/18 00:00 Intake Total 1020 ml Output Total 600 ml Balance 420 ml Intake Oral 0 ml IV Total 1020 ml Output Urine Total 600 ml # Voids 2 Daily Weight Change Unsure Unsure General: Other (sleeping) Lungs: Other (ronchi throughout) Heart: Other (tachycardia) Abdomen: Normal Bowel Sounds, Soft Results/Procedures Lab Laboratory Tests 10/16/18 15:04: White Blood Count 13.9H, Red Blood Count 3.68L, Hemoglobin 11.3L, Hematocrit 34L , Mean Corpuscular Volume 91, Mean Corpuscular Hemoglobin 31, Mean Corpuscular Hemoglobin Concent 34, Red Cell Distribution Width 12.9, Platelet Count 457H, Mean Platelet Volume 9.4, Neutrophils (%) (Auto) 95H, Lymphocytes (%) (Auto) 3L , Monocytes (%) (Auto) 2, Eosinophils (%) (Auto) 0, Basophils (%) (Auto) 0, Neutrophils # (Auto) 13.3H, Lymphocytes # (Auto) 0.4L, Monocytes # (Auto) 0.2, Eosinophils # (Auto) 0.0, Basophils # (Auto) 0.0, Sodium Level 141, Potassium Level 4.2, Chloride Level 114#H, Carbon Dioxide Level 13L, Anion Gap 14, Blood Urea Nitrogen 8, Creatinine 0.78, Estimat Glomerular Filtration Rate > 60, BUN/ Creatinine Ratio 10, Glucose Level 95, Calcium Level 9.0, Corrected Calcium 9.4 , Total Bilirubin 0.2, Aspartate Amino Transf (AST/SGOT) 34, Alanine Aminotransferase (ALT/SGPT) 14, Alkaline Phosphatase 40, Troponin I < 0.028, B- Type Natriuretic Peptide 375.5H, Total Protein 6.5, Albumin 3.5, Lipase < 4L, Thyroid Stimulating Hormone (TSH) 0.40 10/16/18 15:12: Blood Gas Puncture Site RIGHT RADIAL, Blood Gas Patient Temperature 99.5, Arterial Blood pH 7.32*L, Arterial Blood Partial Pressure CO2 31L, Arterial Blood Partial Pressure O2 40L, Arterial Blood HCO3 16*L, Arterial Blood Total CO2 16.5L, Arterial Blood Oxygen Saturation 73L, Arterial Blood Base Excess - 9.2L, Dwight Test POSITIVE, Blood Gas Ventilator Setting NO, Blood Gas Inspired Oxygen ROOM AIR 10/17/18 05:40: White Blood Count 9.3, Red Blood Count 3.42L, Hemoglobin 10.8L, Hematocrit 32L, Mean Corpuscular Volume 92, Mean Corpuscular Hemoglobin 32, Mean Corpuscular Hemoglobin Concent 34, Red Cell Distribution Width 12.9, Platelet Count 351, Mean Platelet Volume 9.6, Neutrophils (%) (Auto) 83H, Lymphocytes (%) (Auto) 12 , Monocytes (%) (Auto) 5, Eosinophils (%) (Auto) 0, Basophils (%) (Auto) 0, Neutrophils # (Auto) 7.6, Lymphocytes # (Auto) 1.1, Monocytes # (Auto) 0.5, Eosinophils # (Auto) 0.0, Basophils # (Auto) 0.0, Sodium Level 143, Potassium Level 3.5L, Chloride Level 120H, Carbon Dioxide Level 14L, Anion Gap 9, Blood Urea Nitrogen 14, Creatinine 0.65, Estimat Glomerular Filtration Rate > 60, BUN/ Creatinine Ratio 22, Glucose Level 104, Calcium Level 9.1, Corrected Calcium 9.9 , Total Bilirubin 0.2, Aspartate Amino Transf (AST/SGOT) 40H, Alanine Aminotransferase (ALT/SGPT) 18, Alkaline Phosphatase 32L, Total Protein 5.9L, Albumin 3.0L, Triglycerides Level 79, Cholesterol Level 97, LDL Cholesterol Direct 37, VLDL Cholesterol 16, HDL Cholesterol 28L 10/17/18 14:30: Lactic Acid Level 1.07 Microbiology 10/16/18 Blood Culture - Preliminary, Resulted Probable Strep Pneumoniae 10/16/18 Influenza Types A,B Antigen (MARCY) - Final, Complete 10/16/18 Urine Culture - Final, Complete NO GROWTH Radiology CTA chest 10/16: IMPRESSION: 1. No CT evidence of pulmonary emboli or aortic dissection. There is adenopathy in the mediastinum and jennifer which appears to be increased compared to the prior study. This could be reactive or neoplastic. There is a new area of parenchymal density in the right upper lobe which is more likely infiltrate rather than mass, but would recommend follow to resolution. There are some patchy areas of milder infiltrate in both lower lobes and in the right middle lobe. 2. There is new diffuse inhomogeneity of the liver which may represent fatty change and/or diffuse hepatocellular disease. There is evidence of previous sternotomy with underlying soft tissue swelling. Assessment/Plan Assessment/Plan (1) Altered mental status Status: Acute Assessment & Plan: Patient with apparently normal mental status on admission, now markedly confused and not answering questions appropriately. Suspect delirium, maybe related to fentanyl and lorazepam as well as underlying pneumonia. Family does note she has had delirium with sepsis in the past. Recheck labs, check ABG and KUB given abdominal pain. Hesitate to add more sedating medications at this time, will try to continue with reorienting and minimizing lines, etc and wait for medication to wear off. However, if unable to maintain safety in bed without pulling IV, etc, may need to consider anti- psychotic. 3/6 intermittently doing better and currently resting, will continue to monitor closely. ABG yesterday did not show significant hypercapnea and KUB was unremarkable. Qualifiers: Qualified Codes: R41.0 - Disorientation, unspecified (2) Bilateral pneumonia Status: Acute Assessment & Plan: Cefepime started in ER, will continue. No hypoxia, but with AMS, concern for hypercapnia, will check ABG. 3/6 febrile and blood cultures with suspected strep pneumo. Now on 2 lpm supplemental oxygen. Qualifiers: Qualified Codes: J18.9 - Pneumonia, unspecified organism (3) Abdominal pain Status: Acute Assessment & Plan: Unable to provide history and has marked ttp, will get KUB. 3/6 KUB unremarkable. Qualifiers: Qualified Codes: R10.84 - Generalized abdominal pain (4) CAD (coronary artery disease) Status: Chronic Assessment & Plan: s/p CABG, history of heart failure. Check BNP and repeat troponin (initial troponin negative). 3/6 BNP mildly elevated, repeat troponin remained negative. Consult Cardiology given her recent CABG and persistent tachycardia (although I suspect this is sepsis related), as well as amiodarone use and need for anti-psychotics for agitation. (5) Sepsis Status: Acute Assessment & Plan: Secondary to pneumonia, lactic acidosis resolved with IVF. 3/6 remains tachycardic and febrile overnight, but lactic acid normal and no end organ damage noted, continue to monitor closely. (6) Hyponatremia Status: Resolved Assessment & Plan: Suspect combination of pneumonia and possibly heart failure vs poor intake. Not severe enough to explain AMS, will monitor. (7) High anion gap metabolic acidosis Status: Resolved Assessment & Plan: Suspect due to lactic acidosis, repeating labs. (8) DVT prophylaxis Status: Acute Assessment & Plan: Enoxaparin Clinical Quality Measures DVT/VTE Risk/Contraindication: Risk Factor Score Per Nursin RFS Level Per Nursing on Admit: 2=Moderate NINA JERONIMO MD Oct 17, 2018 15:00
--- NOTE | 2018-10-17 15:04 | NUR ---
1430 PT TO ICU ROOM 6 VIA BED WITH PORTABLE 02 TANK
--- NOTE | 2018-10-17 15:20 | Diagnostic Imaging Report ---
INDICATION: Intubation. TIME OF EXAM: 03:01 p.m. COMPARISON: Comparison is made with prior chest from 10/16/2018. FINDINGS: There are changes of median sternotomy and CABG. The ET tube has been placed with tip above the levon. NG tube passes below the diaphragm. External pacer overlies the right hemithorax. There are some central congestive changes noted. External pacer overlies the lower left chest as well. There is no effusion or pneumothorax. IMPRESSION: Satisfactory endotracheal tube placement. Dictated by: Dictated on workstation # [id number]
--- NOTE | 2018-10-17 15:34 | Anesthesia-Procedure Note ---
Procedures/Interventions Procedure Start/Stop/Diagnosis Date of Procedure: Oct 17, 2018 Start Time: 15:15 Referring Physician: Dr Ramirez Preprocedural Diagnosis: Respiratory Failure/Hypotension Brief History Called to ICU for an arterial line placement. Brief history obtained from Dr Ramirez. Pt recently intubated d/t acute respiratory failure. She is currently hypotensive with SBP in the 80's mmHG. Left radial arterial line placed with ease and secured with sterile tegaderm with a good waveform. Stop Time: 15:25 Postprocedural Diagnosis: Same Arterial Line Arterial Line Catheter: 20G Type: Radial Location: Left Procedure: prepped, draped in sterile fashion (ChloraPrep), good wave-form was obtained, patient tolerated procedure well, no immediate complications, post procedure area cleaned, post procedure dressing applied PERRY CARBAJAL DO Oct 17, 2018 15:34
[2018-10-17 15:58] LABS: BASOPHILS % (AUTO) 0 % (0-10); EOSINOPHILS % (AUTO) 0 % (0-10); HEMATOCRIT 32 % (35-52); HEMOGLOBIN 10.3 G/DL (11.5-16.0); LYMPHOCYTES # (AUTO) 1.4 X 10^3 (1.0-4.0); LYMPHOCYTES % (AUTO) 15 % (12-44); MEAN CORPUSCULAR HEMOGLOBIN 31 PG (25-34); MEAN CORPUSCULAR HGB CONC 33 G/DL (32-36); MEAN CORPUSCULAR VOLUME 94 FL (80-99); MEAN PLATELET VOLUME 9.8 FL (7.4-10.4); MONOCYTES # (AUTO) 0.7 X 10^3 (0.0-1.0); MONOCYTES % (AUTO) 8 % (0-12); NEUTROPHILS # (AUTO) 7.2 X 10^3 (1.8-7.8); NEUTROPHILS % (AUTO) 77 % (42-75); PLATELET COUNT 404 10^3/uL (130-400); RED CELL DISTRIBUTION WIDTH 13.7 % (10.0-14.5); WHITE BLOOD COUNT 9.3 10^3/uL (4.3-11.0)
--- NOTE | 2018-10-17 16:02 | NUR ---
Pastoral care visit with pts , he was upset in regards to pts current situation, I listened and offered support and prayer.
--- NOTE | 2018-10-17 16:10 | Diagnostic Imaging Report ---
INDICATION: Line placement. Frontal chest obtained at 03:52 p.m. and compared to same day at 03:01 p.m. The ET tube and NG tube are unchanged. New right IJ central catheter tip overlies the low SVC. There is cardiomegaly and central vascular congestion with interstitial edema. There is no pneumothorax or gross pleural fluid. IMPRESSION: Cardiomegaly with interstitial edema compatible with CHF. ET tube and NG tube are stable compared to the prior study, new right IJ central catheter tip overlies the SVC. There is no pneumothorax following device placement. Dictated by: Dictated on workstation # [id number]
[2018-10-17 16:11] LABS: ALANINE AMINOTRANSFERASE 18 U/L (0-55); ALBUMIN 3.2 GM/DL (3.2-4.5); ALKALINE PHOSPHATASE 33 U/L (40-136); BILIRUBIN,TOTAL 0.2 MG/DL (0.1-1.0); BUN/CREATININE RATIO 26; CALCIUM 9.7 MG/DL (8.5-10.1); CARBON DIOXIDE 14 MMOL/L (21-32); CHLORIDE 121 MMOL/L (98-107); CREATININE SERUM 0.68 MG/DL (0.60-1.30); GFR ESTIMATED > 60; GLUCOSE 102 MG/DL (70-105); POTASSIUM 4.3 MMOL/L (3.6-5.0); SODIUM 144 MMOL/L (135-145); TOTAL PROTEIN 6.3 GM/DL (6.4-8.2)
[2018-10-17] MEDS ORDERED: SODIUM BICARB 8.4% 50 MEQ/50 ML (ABBOTT) SYR IV NR (16:15)
[2018-10-17] MEDS ORDERED: FLUCONAZOLE 200 MG/100 ML 100 ML IV NR (16:15)
--- NOTE | 2018-10-17 16:15 | Pulmonary Procedures ---
Pulmonary Procedures Date of Procedure Date of Service: Oct 17, 2018 Lumen: triple (US guided. Needle visualized going into vein with US. ) Central Line Procedure: betadine prep, sterile drapes applied, sterile dressing applied Position: internal jugular (R) Anesthesia: local Volume Anesthetic (ccs): 5 Complications: none Post Position: sutured, good blood return, position confirmed w/ CXR TATE JACKSON DO Oct 17, 2018 16:15
--- NOTE | 2018-10-17 16:16 | Pulmonary Procedures ---
Pulmonary Procedures Date of Procedure Date of Service: Oct 17, 2018 Reason for Intubation: acute respiratory failure Time of Intubation: 16:15 Intubation Method: orotracheal Tube Size: 7.5 Medications: Propofol, Versed Positive End Tide CO2: Yes Breath Sounds after Intubation: bilateral-equal Intubation Complications: no complications Post Intubation Xray: Yes TATE JACKSON DO Oct 17, 2018 16:16
[2018-10-17] MEDS: ENOXAPARIN 40 MG/0.4 ML (LOVENOX) SYR SC SCH (18:03)
[2018-10-17] MEDS ORDERED: CEFEPIME 1 GM (MAXIPIME) VIAL ONE (18:21)
[2018-10-17] MEDS ORDERED: WATER (STERILE) FOR INJECTION 20 ML ONE (18:24)
[2018-10-17] MEDS ORDERED: CEFEPIME 2 GM (MAXIPIME) VIAL ONE (18:24)
--- NOTE | 2018-10-17 18:48 | NUR ---
TIME LINE NOTE 1430 PATIENT ARRIVED TO ICU PER 4TH FLOOR NURSE 1432 DR. JACKSON IN ROOM 1438 FLUIDS WIDE OPEN 1439 4 OF VERSED 14[address] JACKSON 1441 PT INTUBATED 7.5 ETT 23 @ LIP BILAT BREATH SOUNDS COLOR CHANGE POSITIVE 14[address] JACKSON 1443 DIPROVAN DRIP STARTED AT 10 MCG/KG/HR 1448 1 L PRESSURE BAG 1522 1 L PRESSURE BAG 1522 50 OF NATTY 1524 ART LINE PLACEMENT 1530 R IJ PLACED BY DR. JACKSON
[2018-10-17] MEDS: ATORVASTATIN 20 MG (LIPITOR) TABLET PO SCH (21:59)
[2018-10-17] MEDS: fentaNYL INJECTION 1,250 MCG in NS (IVPB) 250 ML IV SCH (23:22)
[2018-10-18] VITALS (34 sets, daily range): BP systolic 95–163; BP diastolic 45–101
[2018-10-18] MEDS ORDERED: PROPOFOL DRIP (ICU) 100 ML IV SCH (00:30)
[2018-10-18] MEDS: 1/2 NS IV SOLUTION 1,000 ML IV SCH (01:42)
[2018-10-18] MEDS: RT-ALBUTEROL/IPRATROPIUM 3 ML (DUONEB) VIAL INH SCH ×6 (02:30→21:35)
[2018-10-18 03:45] LABS: BASOPHILS % (AUTO) 0 % (0-10); EOSINOPHILS % (AUTO) 0 % (0-10); HEMATOCRIT 28 % (35-52); HEMOGLOBIN 8.9 G/DL (11.5-16.0); LYMPHOCYTES # (AUTO) 0.8 X 10^3 (1.0-4.0); LYMPHOCYTES % (AUTO) 11 % (12-44); MEAN CORPUSCULAR HEMOGLOBIN 31 PG (25-34); MEAN CORPUSCULAR HGB CONC 32 G/DL (32-36); MEAN CORPUSCULAR VOLUME 96 FL (80-99); MEAN PLATELET VOLUME 9.5 FL (7.4-10.4); MONOCYTES # (AUTO) 0.3 X 10^3 (0.0-1.0); MONOCYTES % (AUTO) 4 % (0-12); NEUTROPHILS # (AUTO) 6.2 X 10^3 (1.8-7.8); NEUTROPHILS % (AUTO) 85 % (42-75); PLATELET COUNT 305 10^3/uL (130-400); WHITE BLOOD COUNT 7.2 10^3/uL (4.3-11.0)
[2018-10-18 03:46] LABS: ABG BASE EXCESS -9.4 MMOL/L (-2.5-2.5); ABG OXYGEN SATURATION 98 % (94-100); ABG PCO2 43 MMHG (35-45); ABG PO2 97 MMHG (79-93); ABG TCO2 18.4 MMOL/L (21.0-31.0)
[2018-10-18 03:50] LABS: ABG PH 7.22 (7.37-7.43); ALLENS TEST ARTLINE
[2018-10-18 03:51] LABS: INSPIRED O2 45%; PATIENT TEMP 97.6; VENTILATOR YES
[2018-10-18 04:07] LABS: ALANINE AMINOTRANSFERASE 15 U/L (0-55); ALBUMIN 2.5 GM/DL (3.2-4.5); ALKALINE PHOSPHATASE 30 U/L (40-136); BILIRUBIN,TOTAL 0.3 MG/DL (0.1-1.0); BUN/CREATININE RATIO 26; CALCIUM 8.3 MG/DL (8.5-10.1); CARBON DIOXIDE 15 MMOL/L (21-32); CHLORIDE 122 MMOL/L (98-107); CREATININE SERUM 0.62 MG/DL (0.60-1.30); GFR ESTIMATED > 60; GLUCOSE 116 MG/DL (70-105); PHOSPHORUS 2.4 MG/DL (2.3-4.7); POTASSIUM 3.8 MMOL/L (3.6-5.0); SODIUM 146 MMOL/L (135-145); TOTAL PROTEIN 4.9 GM/DL (6.4-8.2); TRIGLYCERIDES 310 MG/DL (<150)
[2018-10-18] MEDS ORDERED: SODIUM BICARB 8.4% 50 MEQ/50 ML (ABBOTT) SYR IV ONE (04:45)
[2018-10-18] MEDS ORDERED: SODIUM BICARBONATE 8.4% VIAL 100 MEQ in D5W 1000 ML IV SOLUTION 1,000 ML IV SCH ×3 (04:45→21:00)
--- NOTE | 2018-10-18 04:52 | Pulmonary Progress Note ---
Subjective Time Seen by a Provider: 04:50 Subjective/Events-last exam Pt sedated on vent. Sepsis Event Evaluation Height, Weight, BMI Height: 5'3.00" Weight: 116lbs. 6.0oz. 52.858934fb; 24.9 BMI Method:Stated Focused Exam Lactate Level 10/16/18 08:15: Lactic Acid Level 2.92*H 10/16/18 12:40: Lactic Acid Level 1.94 10/17/18 14:30: Lactic Acid Level 1.07 Exam Exam Vital Signs Date Time Temp Pulse Resp B/P (MAP) Pulse Ox O2 Delivery O2 Flow Rate FiO2 10/18/18 04:30 97.6 10/18/18 04:30 106 25 100 35 10/18/18 04:00 Mechanical Ventilator 45.00 10/18/18 02:30 101 26 99 45 10/18/18 02:00 102 24 115/45 (68) 97 Mechanical Ventilator 45.00 10/18/18 01:00 108 10/18/18 01:00 108 27 122/48 (72) 97 Mechanical Ventilator 45.00 10/18/18 00:41 112 23 117/46 (69) 97 Mechanical Ventilator 45.00 10/18/18 00:30 112 27 98 45 10/18/18 00:09 99.9 10/18/18 00:00 Mechanical Ventilator 50.00 10/18/18 00:00 120 25 108/45 (66) 96 Mechanical Ventilator 50.00 10/17/18 23:00 122 37 189/70 (109) 93 Mechanical Ventilator 50.00 10/17/18 22:30 101 27 92 50 10/17/18 22:10 Mechanical Ventilator 10/17/18 22:00 101 29 158/63 (94) 98 Mechanical Ventilator 50.00 10/17/18 21:00 102 34 142/57 (85) 97 Mechanical Ventilator 50.00 10/17/18 20:10 100 25 100 60 10/17/18 20:10 105 25 133/55 (81) 97 Mechanical Ventilator 50.00 10/17/18 20:00 99 Mechanical Ventilator 60.00 10/17/18 20:00 97.6 106 27 131/51 (77) 100 Mechanical Ventilator 60.00 10/17/18 19:00 115 10/17/18 19:00 115 24 119/47 (71) 100 Mechanical Ventilator 60.00 10/17/18 18:30 118 24 93 60 10/17/18 18:00 118 18 192/67 (108) 95 Mechanical Ventilator 60.00 10/17/18 17:00 109 14 140/51 (80) 96 Mechanical Ventilator 60.00 10/17/18 16:49 108 10/17/18 16:30 108 24 96 100 10/17/18 16:27 Mechanical Ventilator 100 10/17/18 16:00 108 24 150/51 (84) 90 Mechanical Ventilator 60.00 10/17/18 15:45 111 24 102/44 (63) 98 Mechanical Ventilator 100.00 158/60 (92) 10/17/18 15:30 112 24 90/42 (58) Mechanical Ventilator 100.00 112/48 (69) 10/17/18 15:15 109 32 81/40 (54) 100 Mechanical Ventilator 100.00 10/17/18 15:00 107 19 85/51 (62) 100 Nasal Cannula 2.00 10/17/18 14:56 126 10/17/18 14:45 120 67/46 (53) 97 Nasal Cannula 2.00 10/17/18 14:41 112 26 98 100 10/17/18 13:43 88 Nasal Cannula 2.00 10/17/18 08:22 Room Air 10/17/18 08:00 98.8 121 24 100/50 (67) 93 Nasal Cannula 2.00 10/17/18 07:29 Nasal Cannula 2.00 10/17/18 07:18 93 Nasal Cannula 2.00 10/17/18 04:49 98.9 125 24 108/62 (77) 93 Nasal Cannula 2.00 I & O 10/18/18 07:00 Intake Total 3670 ml Output Total 975 ml Balance 2695 ml Height & Weight Height: 5'3.00" Weight: 116lbs. 6.0oz. 52.114769pd; 24.9 BMI Method:Stated General Appearance: Severe Distress, Other (lethargic) HEENT: PERRL/EOMI, Pharynx Normal, Moist Mucous Membranes Neck: Full Range of Motion Respiratory: Accessory Muscle Use, Crackles, Rales, Respiratory Distress Cardiovascular: No Edema, No JVD, No Murmur, Tachycardia Capillary Refill: Less Than 3 Seconds Gastrointestinal: normal bowel sounds, distended, tenderness Extremity: No Pedal Edema Neurologic/Psychiatric: Disoriented Skin: Warm/Dry Lymphatic: No Adenopathy Results Lab Laboratory Tests 10/16/18 05:46 10/16/18 15:04 10/17/18 05:40 10/17/18 14:30 10/18/18 03:37 Assessment/Plan Assessment/Plan Acute respiratory distress with altered mental status -Continue ventilator. Will attempt to wean -D/C propofol -Start precedex, continue Fentanyl Metabolic encephalopathy - probably from sepsis -Check Neurontin level and decrease Neurontin Hypernatremia -Change to D5W with 2 amps of bicarb Metabolic nonanion gapped acidosis -Bicarb gtt Bilateral pneumonia -Continue cefepime Thrush -Diflucan CAD with hx of CABG -Cardiology is following Sinus tach -IVF Anemia -Monitor TATE JACKSON DO Oct 18, 2018 04:52
[2018-10-18] MEDS ORDERED: SODIUM BICARB 8.4% 50 MEQ/50 ML (ABBOTT) SYR ONE (05:21)
[2018-10-18] MEDS ORDERED: NS (IVPB) 50 ML ONE (05:22)
[2018-10-18] MEDS: POTASSIUM CL 10MEQ/50ML IVPB 50 ML IV SCH ×4 (05:30→06:54)
[2018-10-18] MEDS: DEXMEDETOMIDINE INJECTION 200 MCG in NS (IVPB) 50 ML IV SCH ×2 (05:31→20:17)
[2018-10-18] MEDS: KCL 20 MEQ TAB (K-DUR) PO SCH (05:32)
[2018-10-18] MEDS: MAGNESIUM 1 GM/100 ML IVPB 100 ML IV SCH (05:32)
[2018-10-18] MEDS: CEFEPIME 2,000 MG/SWFI 20 ML IV PUSH IV SCH ×2 (05:33)
--- NOTE | 2018-10-18 07:08 | Cardiology Progress Note ---
Subjective Date Seen by Provider: Oct 18, 2018 Time Seen by Provider: 07:02 Subjective/Events-last exam patient is sedated and intubated, unable to provide any history, history was obtained by reviewing her record Review of Systems General: Other (sedated and intubated, unable to provide review of systems) Focused Exam Sepsis Stage: Sepsis Possible Source: Pulmonary Lactate Level 10/16/18 08:15: Lactic Acid Level 2.92*H 10/16/18 12:40: Lactic Acid Level 1.94 10/17/18 14:30: Lactic Acid Level 1.07 Time of Focused Exam: 07:03 Respiratory: Chest Non Tender, Crackles, Expiration, Rales Cardiovascular: Regular Rate, Rhythm, No Gallop, Systolic Murmur, JVD Capillary Refill: Less Than 3 Seconds Skin: normal color, warm/dry Objective-Cardiology Exam Last Set of Vital Signs Vital Signs 10/18/18 10/18/18 04:27 04:30 Temp 97.6 Pulse 106 Resp 25 B/P (MAP) 163/61 (95) Pulse Ox 100 O2 Delivery Mechanical Ventilator O2 Flow Rate 35.00 FiO2 35 Capillary Refill : Less Than 3 SecondsLess Than 3 Seconds I&O Intake and Output 10/18/18 00:00 Intake Total 2670 ml Output Total 775 ml Balance 1895 ml Intake Oral 0 ml IV Total 2520 ml Other 150 ml Output Urine Total 775 ml # Voids 3 General: Severe Distress, Other (sedated and intubated) HEENT: Atraumatic, Mucous Memb Moist/[place] Neck: Supple Lungs: Other (ronchi throughout) Heart: Normal S1, Normal S2, Other (tachycardia) Abdomen: Normal Bowel Sounds, Soft Extremities: No Clubbing, No Cyanosis Skin: No Rashes Neuro: Other (sedated and intubated) Results Lab Laboratory Tests 10/17/18 14:30 10/18/18 03:37 A/P-Cardiology Admission Diagnosis Acute respiratory failure Pneumonia COPD CAD Assessment/Plan Acute respiratory failure, intubated, bilateral pneumonia, started on antibiotic , currently off sedation for possible weaning trial today. Bilateral pneumonia, on cefepime, managed by Dr. Ramirez Acute change in mental status, secondary to respiratory failure in addition to pain medication and Haldol, continue to monitor while being weaned off the ventilator Oral thrush, multiple hospitalization, immunocompromise due to the multiple comorbid condition, started on Diflucan per Dr. Ramirez Sinus tachycardia, secondary to respiratory failure., Continue to monitor Metabolic acidosis, secondary to sepsis and respiratory failure. Anemia, continue to monitor H&H Borderline hypotension, receiving IV fluid. Monitor blood pressure while off sedation Congestive heart failure, echocardiogram 2017 showed preserved left ventricular systolic function, acute left ventricular diastolic dysfunction. currently receiving IV fluid due to hypotension. Continue to monitor Coronary artery disease, status post myocardial infarction occurred early in July 2018, had CABG 4 done on July 30, 2018 in [place] and she was discharged and drove back to [place], continue to monitor at this time. Paroxysmal atrial fibrillation, maintained on amiodarone. Continue to monitor COPD, currently intubated. Depression post bypass surgery, maintained on Zoloft as outpatient. Hypertension, borderline hypotension at this time. continue to monitor BP/HR. Hyperlipidemia, on Lipitor, continue to monitor. Tobaccoism Clinical Quality Measures DVT/VTE Risk/Contraindication: Risk Factor Score Per Nursin RFS Level Per Nursing on Admit: 2=Moderate SUPA MCMANUS MD Oct 18, 2018 07:08
[2018-10-18] MEDS: RT-BUDESONIDE NEBS 0.5 MG/2ML (PULMICORT) AMP INH SCH ×2 (07:20→21:35)
[2018-10-18] MEDS: hydrALAZINE (APESOLINE) 20 MG/ML VIAL IV SCH ×4 (08:00→20:18)
[2018-10-18] MEDS ORDERED: meTOprolol TARTRATE 25 MG (LOPRESSOR) TABLET PO SCH (09:00)
[2018-10-18] MEDS: ASPIRIN 81 MG CHEW (CHILDREN'S ASA) PO SCH (09:04)
[2018-10-18] MEDS: AMIODARONE 200 MG (CORDARONE) TAB PO SCH (09:05)
[2018-10-18] MEDS: GABAPENTIN 400 MG (NEURONTIN) CAP PO SCH ×2 (09:05→21:58)
--- NOTE | 2018-10-18 09:05 | Diagnostic Imaging Report ---
Indication: Pneumonia. Comparison made with prior examination from 10/17/2018. Findings: There is cardiomegaly. There is venous congestion. Lines and tubes are in satisfactory position. There is no pleural effusion or pneumothorax. The mediastinum is unremarkable. Impression: Cardiomegaly and moderate central pulmonary venous congestion. Dictated by: Dictated on workstation # [id number]
[2018-10-18] MEDS: lisINopril 5 MG (PRINIVIL) TABLET PO SCH (09:06)
[2018-10-18] MEDS: DULoxetine 30 MG (CYMBALTA) CAP PO SCH ×2 (09:09→21:58)
[2018-10-18] MEDS: DAKIN'S 1/4 STRENGTH (0.125%) 473 ML BTL TOP SCH ×2 (11:42→21:58)
[2018-10-18] MEDS: cefTRIAXone 1,000 MG/SWFI 10 ML IV PUSH IV SCH ×2 (13:07)
[2018-10-18] MEDS: ENOXAPARIN 40 MG/0.4 ML (LOVENOX) SYR SC SCH (15:10)
[2018-10-18] MEDS: fentaNYL INJECTION 1,250 MCG in NS (IVPB) 250 ML IV SCH (17:00)
[2018-10-18] MEDS: FLUCONAZOLE 200 MG/100 ML 50 ML, EMPTY IV BAG (PVC) 1 EA IV SCH ×2 (17:06)
--- NOTE | 2018-10-18 20:28 | Progress Note (SOAP) ---
Subjective Subjective/Events-last exam Pt with worsening respiratory status yesterday afternoon when seen by Cardiology , Pulm consulted and transferred to ICU and intubated. Afebrile. Review of Systems Date Seen by Provider: Oct 18, 2018 Time Seen by Provider: 08:55 Focused Exam Lactate Level 10/16/18 08:15: Lactic Acid Level 2.92*H 10/16/18 12:40: Lactic Acid Level 1.94 10/17/18 14:30: Lactic Acid Level 1.07 Time of Focused Exam: 07:03 Objective Exam Last Set of Vital Signs Vital Signs Date Time Temp Pulse Resp B/P (MAP) Pulse Ox O2 Delivery O2 Flow Rate FiO2 10/18/18 19:17 98.3 Mechanical Ventilator 25.00 10/18/18 19:00 80 10/18/18 18:10 23 100 10/18/18 14:35 25 Capillary Refill : Less Than 3 SecondsLess Than 3 Seconds I&O Intake and Output 10/18/18 00:00 Intake Total 2670 ml Output Total 775 ml Balance 1895 ml Intake Oral 0 ml IV Total 2520 ml Other 150 ml Output Urine Total 775 ml # Voids 3 General: Other (sedated, ventilated) Lungs: Other (rales, decreased from yesterday) Heart: Regular Rate, No Murmurs Abdomen: Normal Bowel Sounds, Soft Extremities: No Edema Results/Procedures Lab Laboratory Tests 10/18/18 03:37: White Blood Count 7.2, Red Blood Count 2.89L, Hemoglobin 8.9L, Hematocrit 28L, Mean Corpuscular Volume 96, Mean Corpuscular Hemoglobin 31, Mean Corpuscular Hemoglobin Concent 32, Red Cell Distribution Width 14.0, Platelet Count 305, Mean Platelet Volume 9.5, Neutrophils (%) (Auto) 85H, Lymphocytes (%) (Auto) 11L , Monocytes (%) (Auto) 4, Eosinophils (%) (Auto) 0, Basophils (%) (Auto) 0, Neutrophils # (Auto) 6.2, Lymphocytes # (Auto) 0.8L, Monocytes # (Auto) 0.3, Eosinophils # (Auto) 0.0, Basophils # (Auto) 0.0, Blood Gas Puncture Site LEFT ARTLINE, Blood Gas Patient Temperature 97.6, Arterial Blood pH 7.22*L, Arterial Blood Partial Pressure CO2 43, Arterial Blood Partial Pressure O2 97H, Arterial Blood HCO3 17*L, Arterial Blood Total CO2 18.4L, Arterial Blood Oxygen Saturation 98, Arterial Blood Base Excess -9.4L, Dwight Test ARTLINE, Blood Gas Ventilator Setting YES, Blood Gas Inspired Oxygen 45%, Sodium Level 146H, Potassium Level 3.8, Chloride Level 122H, Carbon Dioxide Level 15L, Anion Gap 9 , Blood Urea Nitrogen 16, Creatinine 0.62, Estimat Glomerular Filtration Rate > 60, BUN/Creatinine Ratio 26, Glucose Level 116H, Calcium Level 8.3L, Corrected Calcium 9.5, Phosphorus Level 2.4, Magnesium Level 2.0, Total Bilirubin 0.3, Aspartate Amino Transf (AST/SGOT) 25, Alanine Aminotransferase (ALT/SGPT) 15, Alkaline Phosphatase 30L, Total Protein 4.9L, Albumin 2.5L, Triglycerides Level 310H 10/18/18 06:30: Microbiology 10/16/18 Blood Culture - Final, Complete Streptococcus pneumoniae 10/17/18 Gram Stain - Final, Resulted 10/17/18 Sputum Culture - Preliminary, Resulted Culture In Progress 10/16/18 Urine Culture - Final, Complete NO GROWTH Radiology CTA chest 10/16: IMPRESSION: 1. No CT evidence of pulmonary emboli or aortic dissection. There is adenopathy in the mediastinum and jennifer which appears to be increased compared to the prior study. This could be reactive or neoplastic. There is a new area of parenchymal density in the right upper lobe which is more likely infiltrate rather than mass, but would recommend follow to resolution. There are some patchy areas of milder infiltrate in both lower lobes and in the right middle lobe. 2. There is new diffuse inhomogeneity of the liver which may represent fatty change and/or diffuse hepatocellular disease. There is evidence of previous sternotomy with underlying soft tissue swelling. Assessment/Plan Assessment/Plan (1) Altered mental status Status: Acute Assessment & Plan: Patient with apparently normal mental status on admission, now markedly confused and not answering questions appropriately. Suspect delirium, maybe related to fentanyl and lorazepam as well as underlying pneumonia. Family does note she has had delirium with sepsis in the past. Recheck labs, check ABG and KUB given abdominal pain. Hesitate to add more sedating medications at this time, will try to continue with reorienting and minimizing lines, etc and wait for medication to wear off. However, if unable to maintain safety in bed without pulling IV, etc, may need to consider anti- psychotic. 3/6 intermittently doing better and currently resting, will continue to monitor closely. ABG yesterday did not show significant hypercapnea and KUB was unremarkable. 10/18 yesterday afternoon with worsening respiratory status related to decreased level of consciousness, likely secondary to sepsis in combination with anti- psychotics that she was requiring in order to manage extreme agitation. Currently sedated on ventilator, weaning sedation and vent per Dr. Ramirez. Qualifiers: Qualified Codes: R41.0 - Disorientation, unspecified (2) Bilateral pneumonia Status: Acute Assessment & Plan: Cefepime started in ER, will continue. No hypoxia, but with AMS, concern for hypercapnia, will check ABG. 10/17 febrile and blood cultures with suspected strep pneumo. Now on 2 lpm supplemental oxygen. 10/18- afebrile, no leukocytosis or lactic acidosis, blood culture with strep pneumo- change antibiotic to ceftriaxone, diflucan added yesterday per Pulm due to findings at time of intubation. Qualifiers: Qualified Codes: J18.9 - Pneumonia, unspecified organism (3) Abdominal pain Status: Acute Assessment & Plan: Unable to provide history and has marked ttp, will get KUB. 10/17 KUB unremarkable. Qualifiers: Qualified Codes: R10.84 - Generalized abdominal pain (4) CAD (coronary artery disease) Status: Chronic Assessment & Plan: s/p CABG, history of heart failure. Check BNP and repeat troponin (initial troponin negative). 3/6 BNP mildly elevated, repeat troponin remained negative. Consult Cardiology given her recent CABG and persistent tachycardia (although I suspect this is sepsis related), as well as amiodarone use and need for anti-psychotics for agitation. Appreciate Cardiology recs. (5) Sepsis Status: Acute Assessment & Plan: Secondary to pneumonia, lactic acidosis resolved with IVF. 3/6 remains tachycardic and febrile overnight, but lactic acid normal and no end organ damage noted, continue to monitor closely. (6) Hyponatremia Status: Resolved Assessment & Plan: Suspect combination of pneumonia and possibly heart failure vs poor intake. Not severe enough to explain AMS, will monitor. (7) High anion gap metabolic acidosis Status: Resolved Assessment & Plan: Suspect due to lactic acidosis, repeating labs. (8) Respiratory failure Status: Acute Assessment & Plan: Transferred to ICU and intubated 10/17, Pulmonology managing. Qualifiers: Qualified Codes: J96.01 - Acute respiratory failure with hypoxia (9) Metabolic acidosis Status: Acute Assessment & Plan: Bicarb ordered per Dr. Ramirez. (10) Hypernatremia Status: Acute Assessment & Plan: IVF changed to D5 with bicarb (11) DVT prophylaxis Status: Acute Assessment & Plan: Enoxaparin Clinical Quality Measures DVT/VTE Risk/Contraindication: Risk Factor Score Per Nursin RFS Level Per Nursing on Admit: 2=Moderate NINA JERONIMO MD Oct 18, 2018 20:28
--- NOTE | 2018-10-18 21:45 | NUR ---
Sedation vacation attempted at this time with RT Adonia in room and this RN. Pt with eyes open, flailing all extremities equally, not following commands. Pt looked at this RN after the 6th time of saying pt's name, but no other purposeful response was observed. Pt's oxygen began declining to 70%, pt became tachycardic, precedex restarted.
[2018-10-18] MEDS: ATORVASTATIN 20 MG (LIPITOR) TABLET PO SCH (21:58)
[2018-10-18 23:50] LABS: ABG BASE EXCESS -0.4 MMOL/L (-2.5-2.5); ABG OXYGEN SATURATION 82 % (94-100); ABG PCO2 43 MMHG (35-45); ABG PH 7.37 (7.37-7.43); ABG PO2 50 MMHG (79-93); ABG TCO2 25.6 MMOL/L (21.0-31.0)
[2018-10-18 23:52] LABS: ALLENS TEST YES-POS; INSPIRED O2 25%; PATIENT TEMP 98.3; VENTILATOR YES
[2018-10-19] VITALS (29 sets, daily range): BP systolic 104–138; BP diastolic 52–95
[2018-10-19 00:15] LABS: BUN/CREATININE RATIO 26; CALCIUM 8.3 MG/DL (8.5-10.1); CARBON DIOXIDE 23 MMOL/L (21-32); CHLORIDE 115 MMOL/L (98-107); CREATININE SERUM 0.61 MG/DL (0.60-1.30); GFR ESTIMATED > 60; GLUCOSE 187 MG/DL (70-105); POTASSIUM 3.4 MMOL/L (3.6-5.0); SODIUM 144 MMOL/L (135-145)
[2018-10-19] MEDS: DEXMEDETOMIDINE INJECTION 200 MCG in NS (IVPB) 50 ML IV SCH ×2 (00:25→04:31)
[2018-10-19] MEDS: hydrALAZINE (APESOLINE) 20 MG/ML VIAL IV SCH ×6 (00:27→20:13)
[2018-10-19] MEDS ORDERED: 1/2 NS IV SOLUTION 1,000 ML IV SCH (01:15)
[2018-10-19] MEDS: POTASSIUM CL 10MEQ/50ML IVPB 50 ML IV SCH ×5 (01:38→04:39)
[2018-10-19] MEDS: RT-ALBUTEROL/IPRATROPIUM 3 ML (DUONEB) VIAL INH SCH ×5 (02:44→19:38)
[2018-10-19 03:36] LABS: BASOPHILS % (AUTO) 0 % (0-10); EOSINOPHILS % (AUTO) 0 % (0-10); HEMATOCRIT 30 % (35-52); HEMOGLOBIN 9.6 G/DL (11.5-16.0); LYMPHOCYTES # (AUTO) 1.5 X 10^3 (1.0-4.0); LYMPHOCYTES % (AUTO) 18 % (12-44); MEAN CORPUSCULAR HEMOGLOBIN 31 PG (25-34); MEAN CORPUSCULAR HGB CONC 33 G/DL (32-36); MEAN CORPUSCULAR VOLUME 94 FL (80-99); MEAN PLATELET VOLUME 9.9 FL (7.4-10.4); MONOCYTES # (AUTO) 0.6 X 10^3 (0.0-1.0); MONOCYTES % (AUTO) 7 % (0-12); NEUTROPHILS # (AUTO) 6.2 X 10^3 (1.8-7.8); NEUTROPHILS % (AUTO) 75 % (42-75); PLATELET COUNT 257 10^3/uL (130-400); RED CELL DISTRIBUTION WIDTH 13.9 % (10.0-14.5); WHITE BLOOD COUNT 8.3 10^3/uL (4.3-11.0)
[2018-10-19 03:59] LABS: ABG BASE EXCESS -1.1 MMOL/L (-2.5-2.5); ABG OXYGEN SATURATION 76 % (94-100); ABG PCO2 51 MMHG (35-45); ABG PO2 49 MMHG (79-93); ABG TCO2 26.2 MMOL/L (21.0-31.0)
[2018-10-19 04:02] LABS: ALLENS TEST YES-POS; INSPIRED O2 35%; PATIENT TEMP 97.7; VENTILATOR YES
[2018-10-19 04:04] LABS: BUN/CREATININE RATIO 28; CALCIUM 8.5 MG/DL (8.5-10.1); CARBON DIOXIDE 22 MMOL/L (21-32); CHLORIDE 116 MMOL/L (98-107); CREATININE SERUM 0.61 MG/DL (0.60-1.30); GFR ESTIMATED > 60; GLUCOSE 152 MG/DL (70-105); MAGNESIUM 2.1 MG/DL (1.8-2.4); PHOSPHORUS 2.4 MG/DL (2.3-4.7); POTASSIUM 4.5 MMOL/L (3.6-5.0); SODIUM 146 MMOL/L (135-145)
[2018-10-19] MEDS: MAGNESIUM 1 GM/100 ML IVPB 100 ML IV SCH (04:39)
[2018-10-19] MEDS: KCL 20 MEQ TAB (K-DUR) PO SCH (04:39)
[2018-10-19] MEDS ORDERED: FUROSEMIDE 40 MG/4 ML INJ (LASIX) IVP ONE (05:00)
[2018-10-19] MEDS: RT-BUDESONIDE NEBS 0.5 MG/2ML (PULMICORT) AMP INH SCH ×3 (07:47→19:38)
--- NOTE | 2018-10-19 08:15 | Diagnostic Imaging Report ---
INDICATION: Pneumonia. TECHNIQUE: Single view chest 3:21 AM. CORRELATION STUDY: 10/18/2018 FINDINGS: Poststernotomy changes. Heart size enlarged. Mediastinum stable. The vasculature remains prominent but is less severely congested. Some improvement in aeration of the lung toney. Component of edema or less likely infiltrate does persist. Multiple overlying monitor leads and defibrillator pads are present. Endotracheal tube, gastric tube, and right IJ central line stable. IMPRESSION: 1. Stable support lines and tubes. 2. Continued findings of congestive heart failure but overall appears less congested from previous study. Slight improvement through the lung toney. Dictated by: Dictated on workstation # [id number]
[2018-10-19] MEDS: GABAPENTIN 400 MG (NEURONTIN) CAP PO SCH (08:16)
[2018-10-19] MEDS: ASPIRIN 81 MG CHEW (CHILDREN'S ASA) PO SCH (08:17)
[2018-10-19] MEDS: DULoxetine 30 MG (CYMBALTA) CAP PO SCH (08:17)
[2018-10-19] MEDS: AMIODARONE 200 MG (CORDARONE) TAB PO SCH (08:17)
[2018-10-19] MEDS: DAKIN'S 1/4 STRENGTH (0.125%) 473 ML BTL TOP SCH (08:18)
[2018-10-19] MEDS: lisINopril 5 MG (PRINIVIL) TABLET PO SCH (08:20)
[2018-10-19 09:02] LABS: OCCULT BLOOD,GASTRIC FLUID POSITIVE (NEGATIVE)
--- NOTE | 2018-10-19 09:18 | Cardiology Progress Note ---
Subjective Date Seen by Provider: Oct 19, 2018 Time Seen by Provider: 09:13 Subjective/Events-last exam Patient is sedated and intubated, failed weaning yesterday Review of Systems General: Other (unable to provide ROS) Focused Exam Lactate Level 10/16/18 12:40: Lactic Acid Level 1.94 10/17/18 14:30: Lactic Acid Level 1.07 10/18/18 23:35: Lactic Acid Level 1.07 Time of Focused Exam: 07:03 Objective-Cardiology Exam Last Set of Vital Signs Vital Signs 10/19/18 10/19/18 10/19/18 03:43 06:00 07:47 Temp 97.7 Pulse 89 Resp 25 B/P (MAP) 131/67 (88) Pulse Ox 100 O2 Delivery Mechanical Ventilator O2 Flow Rate 35.00 FiO2 35 Capillary Refill : Less Than 3 SecondsLess Than 3 Seconds I&O Intake and Output 10/19/18 00:00 Intake Total 3575 ml Output Total 1655 ml Balance 1920 ml Intake Oral 0 ml IV Total 3425 ml Other 150 ml Output Urine Total 1655 ml General: Other (sedated, ventilated) HEENT: Atraumatic, Mucous Memb Moist/[place] Neck: Supple Lungs: Other (rales, decreased from yesterday) Heart: Regular Rate, No Murmurs Abdomen: Normal Bowel Sounds, Soft Extremities: No Edema Skin: No Rashes Neuro: Other (sedated and intubated) Results Lab Laboratory Tests 10/18/18 23:35 10/19/18 03:16 A/P-Cardiology Admission Diagnosis Acute respiratory failure Pneumonia COPD CAD Assessment/Plan Acute respiratory failure, intubated, bilateral pneumonia, started on antibiotic , Failed weaning yesterday, was not following commands and agitated, Discussed with Dr Ramirez, she will have CT of head today Bilateral pneumonia, on cefepime, managed by Dr. Ramirez Acute change in mental status, secondary to respiratory failure in addition to pain medication and Haldol, For Head CT today Oral thrush, multiple hospitalization, immunocompromise due to the multiple comorbid condition, started on Diflucan per Dr. Ramirez Sinus tachycardia, secondary to respiratory failure., Continue to monitor Metabolic acidosis, secondary to sepsis and respiratory failure. Anemia, continue to monitor H&H Borderline hypotension, receiving IV fluid. Monitor blood pressure while off sedation Congestive heart failure, echocardiogram 2017 showed preserved left ventricular systolic function, acute left ventricular diastolic dysfunction. responding well to Lasix today Coronary artery disease, status post myocardial infarction occurred early in July 2018, had CABG 4 done on July 30, 2018 in [place] and she was discharged and drove back to [place], continue to monitor at this time. Paroxysmal atrial fibrillation, maintained on amiodarone. Continue to monitor COPD, currently intubated. Depression post bypass surgery, maintained on Zoloft as outpatient. Hypertension, borderline hypotension at this time. continue to monitor BP/HR. Hyperlipidemia, on Lipitor, continue to monitor. Tobaccoism Clinical Quality Measures DVT/VTE Risk/Contraindication: Risk Factor Score Per Nursin RFS Level Per Nursing on Admit: 2=Moderate SUPA MCMANUS MD Oct 19, 2018 09:18
[2018-10-19] MEDS ORDERED: IOHEXOL 350 MG/ML 100 ML (OMNIPAQUE 350) VIAL IV ONE (10:30)
[2018-10-19] MEDS ORDERED: RECEIVED CONTRAST 20 ML VIAL IV SCH (10:30)
[2018-10-19] MEDS ORDERED: NS 100 ML (IVPB) BAG IV ONE (10:30)
--- NOTE | 2018-10-19 12:53 | Diagnostic Imaging Report ---
INDICATION: Altered mental status. TECHNIQUE: The CTA head and neck was obtained with axial slices with IV contrast bolus and sagittal and coronal MIP reconstructions. A precontrast study was also performed. FINDINGS: CT HEAD: The precontrast brain CT demonstrates no extra-axial fluid collection. No intracranial hemorrhage. No intracranial mass or mass effect. No midline shift. The ventricles are normal in size and position. There is a small old lacunar infarct in the right centrum semiovale. In the right temporal lobe posteriorly, there is a small focus of intraparenchymal air just above the mastoid air cells. There appears to be some edema around this location raising the possibly of cerebritis versus early abscess. There appears to be abnormal opacification of the middle ear cavity and mastoid air cells on the right side which are a possible source for infection. There is also opacification of the sphenoid sinuses and ethmoid air cells on both sides as well as fluid levels in the maxillary sinuses and fluid in the frontal sinuses. There is some irregularity and lucency in the greater wing of the sphenoid on both sides. CTA NECK: The patient is intubated with the ET tube tip in the mid trachea. There is atherosclerotic change of the aortic arch without evidence of aneurysm or dissection. The great vessel origins are patent. There are some enlarged nodes in the mediastinum superiorly, see previous chest CTA for evaluation. The common carotid arteries are patent. There is mild plaquing in the carotid bifurcations on both sides without significant stenosis. The internal and external carotids in the neck are patent. The vertebral arteries are patent on both sides and appear codominant. CTA HEAD: The distal internal carotid arteries, anterior cerebral arteries, and middle cerebral arteries are patent and without stenosis. The basilar artery and posterior cerebral arteries are patent and without stenosis or occlusion. There is no overt aneurysmal disease. There is patency of the dural venous sinuses. There is dilatation of the superior ophthalmic vein and nasolabial vein on the left side, asymmetric compared to the right. This raises the possibility of a CC fistula. There also appears to be soft tissue fullness in the nasopharynx. IMPRESSION: CT BRAIN: There is hypodensity in the right temporal lobe posteriorly, compatible with edema, with a small focus of intraparenchymal air in the right temporal lobe raising the possibility of cerebritis and/or early abscess. There is abnormal opacification of the right mastoid air cells and inner ear structures which is a possible source for infection. Recommend MRI pre and post IV contrast for better evaluation of the right temporal lobe process. In addition, there appears be pansinusitis with opacification throughout the sinuses. There is also ill-defined irregularity and hypodensity in the greater wing of the sphenoid bones on both sides which could represent either an infectious or neoplastic process. This could also be further evaluated with MRI. CTA NECK: There is adenopathy in the superior mediastinum as noted on the previous chest CTA. There is no evidence of significant carotid stenosis, occlusion, or vertebral stenosis in the neck. Some soft tissue fullness in the nasopharynx is noted. CTA HEAD: There is no evidence of major vessel stenosis, occlusion, or aneurysmal disease. There is asymmetric dilatation of the left superior ophthalmic vein and nasolabial vein which does raise the possibly of a carotid/cavernous fistula. Consideration should be given to catheter based angiography as clinically warranted. The report was faxed to the patient's nurse in ICU by [email or web address]@12:49 PM. Dictated by: Dictated on workstation # [id number]
[2018-10-19] MEDS: cefTRIAXone 1,000 MG/SWFI 10 ML IV PUSH IV SCH ×2 (13:49)
[2018-10-19] MEDS: fentaNYL INJECTION 100 MCG/2 ML AMP IV PRN ×4 (13:54→17:30)
[2018-10-19] MEDS: ENOXAPARIN 40 MG/0.4 ML (LOVENOX) SYR SC SCH (14:18)
--- NOTE | 2018-10-19 14:32 | Progress Note (SOAP) ---
Subjective Subjective/Events-last exam Remains ventilated and agitated without meaningful communication when sedation is decreased. Afebrile. Review of Systems Date Seen by Provider: Oct 19, 2018 Time Seen by Provider: 08:30 Focused Exam Lactate Level 10/17/18 14:30: Lactic Acid Level 1.07 10/18/18 23:35: Lactic Acid Level 1.07 Time of Focused Exam: 07:03 Objective Exam Last Set of Vital Signs Vital Signs Date Time Temp Pulse Resp B/P (MAP) Pulse Ox O2 Delivery O2 Flow Rate FiO2 10/19/18 12:33 101 25 35 10/19/18 10:00 132/95 (107) 100 Mechanical Ventilator 35.00 10/19/18 03:43 97.7 Capillary Refill : Less Than 3 SecondsLess Than 3 Seconds I&O Intake and Output 10/19/18 00:00 Intake Total 3575 ml Output Total 1655 ml Balance 1920 ml Intake Oral 0 ml IV Total 3425 ml Other 150 ml Output Urine Total 1655 ml General: Other (sedated, intubated) Lungs: Other (ronchi) Heart: Regular Rate, No Murmurs Abdomen: Normal Bowel Sounds, Soft Results/Procedures Lab Laboratory Tests 10/18/18 15:42: Gastric Fluid Occult Blood POSITIVEH 10/18/18 23:35: Blood Gas Puncture Site RIGHT RADIAL, Blood Gas Patient Temperature 98.3, Arterial Blood pH 7.37, Arterial Blood Partial Pressure CO2 43, Arterial Blood Partial Pressure O2 50L, Arterial Blood HCO3 24, Arterial Blood Total CO2 25.6, Arterial Blood Oxygen Saturation 82L, Arterial Blood Base Excess -0.4, Dwight Test YES-POS, Blood Gas Ventilator Setting YES, Blood Gas Inspired Oxygen 25%, Sodium Level 144, Potassium Level 3.4L, Chloride Level 115H, Carbon Dioxide Level 23, Anion Gap 6, Blood Urea Nitrogen 16, Creatinine 0.61, Estimat Glomerular Filtration Rate > 60, BUN/Creatinine Ratio 26, Glucose Level 187H, Lactic Acid Level 1.07, Calcium Level 8.3L 10/19/18 03:16: Sodium Level 146H, Potassium Level 4.5, Chloride Level 116H, Carbon Dioxide Level 22, Anion Gap 8, Blood Urea Nitrogen 17, Creatinine 0.61, Estimat Glomerular Filtration Rate > 60, BUN/Creatinine Ratio 28, Glucose Level 152H, Calcium Level 8.5, White Blood Count 8.3, Red Blood Count 3.14L, Hemoglobin 9.6L , Hematocrit 30L, Mean Corpuscular Volume 94, Mean Corpuscular Hemoglobin 31, Mean Corpuscular Hemoglobin Concent 33, Red Cell Distribution Width 13.9, Platelet Count 257, Mean Platelet Volume 9.9, Neutrophils (%) (Auto) 75, Lymphocytes (%) (Auto) 18, Monocytes (%) (Auto) 7, Eosinophils (%) (Auto) 0, Basophils (%) (Auto) 0, Neutrophils # (Auto) 6.2, Lymphocytes # (Auto) 1.5, Monocytes # (Auto) 0.6, Eosinophils # (Auto) 0.0, Basophils # (Auto) 0.0, Phosphorus Level 2.4, Magnesium Level 2.1, B-Type Natriuretic Peptide 578.8H 10/19/18 03:30: Blood Gas Puncture Site RIGHT RADIAL, Blood Gas Patient Temperature 97.7, Arterial Blood pH 7.30*L, Arterial Blood Partial Pressure CO2 51H, Arterial Blood Partial Pressure O2 49L, Arterial Blood HCO3 25, Arterial Blood Total CO2 26.2, Arterial Blood Oxygen Saturation 76L, Arterial Blood Base Excess -1.1, Dwight Test YES-POS, Blood Gas Ventilator Setting YES, Blood Gas Inspired Oxygen 35% Microbiology 10/16/18 Blood Culture - Final, Complete Streptococcus pneumoniae 10/17/18 Gram Stain - Final, Complete 10/17/18 Sputum Culture - Final, Complete Usual upper respiratory maggie YEAST 10/16/18 Urine Culture - Final, Complete NO GROWTH Radiology CTA chest 10/16: IMPRESSION: 1. No CT evidence of pulmonary emboli or aortic dissection. There is adenopathy in the mediastinum and jennifer which appears to be increased compared to the prior study. This could be reactive or neoplastic. There is a new area of parenchymal density in the right upper lobe which is more likely infiltrate rather than mass, but would recommend follow to resolution. There are some patchy areas of milder infiltrate in both lower lobes and in the right middle lobe. 2. There is new diffuse inhomogeneity of the liver which may represent fatty change and/or diffuse hepatocellular disease. There is evidence of previous sternotomy with underlying soft tissue swelling. Assessment/Plan Assessment/Plan (1) Altered mental status Status: Acute Assessment & Plan: Patient with apparently normal mental status on admission, now markedly confused and not answering questions appropriately. Suspect delirium, maybe related to fentanyl and lorazepam as well as underlying pneumonia. Family does note she has had delirium with sepsis in the past. Recheck labs, check ABG and KUB given abdominal pain. Hesitate to add more sedating medications at this time, will try to continue with reorienting and minimizing lines, etc and wait for medication to wear off. However, if unable to maintain safety in bed without pulling IV, etc, may need to consider anti- psychotic. 10/17 intermittently doing better and currently resting, will continue to monitor closely. ABG yesterday did not show significant hypercapnea and KUB was unremarkable. 10/18 yesterday afternoon with worsening respiratory status related to decreased level of consciousness, likely secondary to sepsis in combination with anti- psychotics that she was requiring in order to manage extreme agitation. Currently sedated on ventilator, weaning sedation and vent per Dr. Ramirez. 10/19 remains agitated and confused when sedation is weaned, CTA head and neck today. Qualifiers: Qualified Codes: R41.0 - Disorientation, unspecified (2) Bilateral pneumonia Status: Acute Assessment & Plan: Cefepime started in ER, will continue. No hypoxia, but with AMS, concern for hypercapnia, will check ABG. 10/17 febrile and blood cultures with suspected strep pneumo. Now on 2 lpm supplemental oxygen. 10/18- afebrile, no leukocytosis or lactic acidosis, blood culture with strep pneumo- change antibiotic to ceftriaxone, diflucan added yesterday per Pulm due to findings at time of intubation. 10/19 continue ceftriaxone and diflucan Qualifiers: Qualified Codes: J18.9 - Pneumonia, unspecified organism (3) Abdominal pain Status: Acute Assessment & Plan: Unable to provide history and has marked ttp, will get KUB. 10/17 KUB unremarkable. Qualifiers: Qualified Codes: R10.84 - Generalized abdominal pain (4) CAD (coronary artery disease) Status: Chronic Assessment & Plan: s/p CABG, history of heart failure. Check BNP and repeat troponin (initial troponin negative). 10/17 BNP mildly elevated, repeat troponin remained negative. Consult Cardiology given her recent CABG and persistent tachycardia (although I suspect this is sepsis related), as well as amiodarone use and need for anti-psychotics for agitation. Appreciate Cardiology recs. (5) Sepsis Status: Acute Assessment & Plan: Secondary to pneumonia, lactic acidosis resolved with IVF. 10/17 remains tachycardic and febrile overnight, but lactic acid normal and no end organ damage noted, continue to monitor closely. (6) Hyponatremia Status: Resolved Assessment & Plan: Suspect combination of pneumonia and possibly heart failure vs poor intake. Not severe enough to explain AMS, will monitor. (7) High anion gap metabolic acidosis Status: Resolved Assessment & Plan: Suspect due to lactic acidosis, repeating labs. (8) Respiratory failure Status: Acute Assessment & Plan: Transferred to ICU and intubated 10/17, Pulmonology managing. Qualifiers: Qualified Codes: J96.01 - Acute respiratory failure with hypoxia (9) Metabolic acidosis Status: Resolved Assessment & Plan: Bicarb ordered per Dr. Ramirez. (10) Hypernatremia Status: Acute Assessment & Plan: IVF changed to D5 with bicarb on 10/18 10/19 on half NS @ 100 per eICU (11) DVT prophylaxis Status: Acute Assessment & Plan: Enoxaparin Clinical Quality Measures DVT/VTE Risk/Contraindication: Risk Factor Score Per Nursin RFS Level Per Nursing on Admit: 2=Moderate NINA JERONIMO MD Oct 19, 2018 14:32
[2018-10-19] MEDS: FLUCONAZOLE 200 MG/100 ML 50 ML, EMPTY IV BAG (PVC) 1 EA IV SCH ×2 (15:12)
[2018-10-19] MEDS: fentaNYL INJECTION 1,250 MCG in NS (IVPB) 250 ML IV SCH (18:04)
[2018-10-19] MEDS ORDERED: PROPOFOL DRIP (ICU) 100 ML IV SCH (18:15)
--- NOTE | 2018-10-19 19:18 | Discharge Summary ---
Diagnosis/Chief Complaint Date of Admission Oct 16, 2018 at 10:33 Date of Discharge Admission Diagnosis Admission Diagnosis Pneumonia Discharge Diagnosis See problem list Problems/Diagnosis: (1) Altered mental status Assessment & Plan: Patient with apparently normal mental status on admission, now markedly confused and not answering questions appropriately. Suspect delirium, maybe related to fentanyl and lorazepam as well as underlying pneumonia. Family does note she has had delirium with sepsis in the past. Recheck labs, check ABG and KUB given abdominal pain. Hesitate to add more sedating medications at this time, will try to continue with reorienting and minimizing lines, etc and wait for medication to wear off. However, if unable to maintain safety in bed without pulling IV, etc, may need to consider anti- psychotic. 10/17 intermittently doing better and currently resting, will continue to monitor closely. ABG yesterday did not show significant hypercapnea and KUB was unremarkable. 10/18 yesterday afternoon with worsening respiratory status related to decreased level of consciousness, likely secondary to sepsis in combination with anti- psychotics that she was requiring in order to manage extreme agitation. Currently sedated on ventilator, weaning sedation and vent per Dr. Ramirez. 10/19 remains agitated and confused when sedation is weaned, CTA head and neck today- showed hypodensity in right temporal lobe posteriorly compatible with edema, with small focus of intraparenchymal air in the right temporal lobe raising possibility of cerebritis and/or early abscess along with opacification of sinuses. Also il-defined irregularity in greater wing of sphenoid bilaterally which could represent infectious or neoplastic process. Additionally , asymmetric dilatation of left superior opthalmic vein and nasolabial vein which raises possibility of carotid/cavernous fistula. Given these findings, discussed with Dr. Ramirez and decided to pursue transfer. [facility] requested we transfer to tertiary center as they were concerned she may need intervention they cannot provide there. Discussed with Neuro ICU and accepted in transfer. Qualifiers: Qualified Codes: R41.0 - Disorientation, unspecified Status: Acute (2) Bilateral pneumonia Assessment & Plan: Cefepime started in ER, will continue. No hypoxia, but with AMS, concern for hypercapnia, will check ABG. 10/17 febrile and blood cultures with suspected strep pneumo. Now on 2 lpm supplemental oxygen. 10/18- afebrile, no leukocytosis or lactic acidosis, blood culture with strep pneumo- change antibiotic to ceftriaxone, diflucan added yesterday per Pulm due to findings at time of intubation. 10/19 continued ceftriaxone and diflucan, blood cultures x 2 with strep pneumo sensitive to ceftriaxone, sputum culture with yeast. Qualifiers: Qualified Codes: J18.9 - Pneumonia, unspecified organism Status: Acute (3) Abdominal pain Assessment & Plan: Unable to provide history and has marked ttp, will get KUB. 10/17 KUB unremarkable. Qualifiers: Qualified Codes: R10.84 - Generalized abdominal pain Status: Acute (4) CAD (coronary artery disease) Assessment & Plan: s/p CABG, history of heart failure. Check BNP and repeat troponin (initial troponin negative). 10/17 BNP mildly elevated, repeat troponin remained negative. Consult Cardiology given her recent CABG and persistent tachycardia (although I suspect this is sepsis related), as well as amiodarone use and need for anti-psychotics for agitation. Appreciate Cardiology recs. Status: Chronic (5) Sepsis Assessment & Plan: Secondary to pneumonia, lactic acidosis resolved with IVF. 10/17 remains tachycardic and febrile overnight, but lactic acid normal and no end organ damage noted, continue to monitor closely. 10/19 afebrile, tachycardia persists Status: Acute (6) Hyponatremia Assessment & Plan: Suspect combination of pneumonia and possibly heart failure vs poor intake. Not severe enough to explain AMS, will monitor. Status: Resolved Resolution Date/Time: 10/17/18 @ 15:03 (7) High anion gap metabolic acidosis Assessment & Plan: Suspect due to lactic acidosis, repeating labs. Status: Resolved Resolution Date/Time: 10/17/18 @ 15:03 (8) Respiratory failure Assessment & Plan: Transferred to ICU and intubated 10/17, Pulmonology managing. Qualifiers: Qualified Codes: J96.01 - Acute respiratory failure with hypoxia Status: Acute (9) Metabolic acidosis Assessment & Plan: Bicarb ordered per Dr. Ramirez. Status: Resolved Resolution Date/Time: 10/19/18 @ 14:30 (10) Hypernatremia Assessment & Plan: IVF changed to D5 with bicarb on 10/18 10/19 on half NS @ 100 per eICU Status: Acute (11) DVT prophylaxis Assessment & Plan: Enoxaparin Status: Acute Chief Complaint/HPI Chief Complaint/HPI 58 yo female admitted via ER due to cough and chest pain, found to have suspected right upper lobe pneumonia. She had CABG Jul 2018 and was hospitalized with pneumonia afterward. She has non-healing wounds on legs from her graft sites. Upon arrival to the floor she was relatively sedated, she did receive fentanyl and lorazepam in the ER. When she started to become more alert , she became agitated and trying to get out of bed. She is not speaking intelligible words, but did say "okay" once when instructed to leave IV alone. She is writhing in bed and moaning, but does not answer questions as to location of discomfort. Her sister reports she has had bad reaction to ativan in the past. Discharge Summary-Simple/Stand Consultations Discharge Physical Examination Allergies: Coded Allergies: No Known Drug Allergies (Unverified , 08/23/18) Vitals & I&Os Vital Sign - Last 12Hours Date Time Temp Pulse Resp B/P (MAP) Pulse Ox O2 Delivery O2 Flow Rate FiO2 10/19/18 18:34 98.4 106 25 121/68 Mechanical Ventilator 35.00 10/19/18 18:00 97 10/19/18 16:31 35 Intake and Output 10/19/18 00:00 Intake Total 1050 ml Output Total 930 ml Balance 120 ml Hospital Course See final discharge diagnosis. Radiology Reviewed CTA chest 10/16: IMPRESSION: 1. No CT evidence of pulmonary emboli or aortic dissection. There is adenopathy in the mediastinum and jennifer which appears to be increased compared to the prior study. This could be reactive or neoplastic. There is a new area of parenchymal density in the right upper lobe which is more likely infiltrate rather than mass, but would recommend follow to resolution. There are some patchy areas of milder infiltrate in both lower lobes and in the right middle lobe. 2. There is new diffuse inhomogeneity of the liver which may represent fatty change and/or diffuse hepatocellular disease. There is evidence of previous sternotomy with underlying soft tissue swelling. Discharge Instructions to patient/family Please see electronic discharge instructions given to patient. Discharge Medications Reviewed and agree with Discharge Medication list on patient's Discharge Instruction sheet Clinical Quality Measures DVT/VTE Risk/Contraindication: Risk Factor Score Per Nursin RFS Level Per Nursing on Admit: 2=Moderate Copy Copies To 1: SEMAJ Khoury BETHANY N MD Oct 19, 2018 19:18
--- NOTE | 2018-10-19 19:55 | NUR ---
1954: REPORT GIVEN TO MARI WATSON AT NEUROLOGY ICU. 2000: [facility] NOTIFIED OF TRANSFER. 2099: [facility] HERE FOR TRANSPORT TO . BELONGINGS SENT WITH PATIENT.
== END 2018-10-19 21:00 | disposition short-term general hospital (02) | DRG 871 ==
LOC: EDUNIT# 05:30 → ER 05:32 → 4TH 10:33 → ICU 10-17 14:35
PROVIDERS: ADMIT Family Medicine; ATTEND Family Medicine
PROC: 5A1945Z Respiratory Ventilation, 24-96 Consecutive Hours (ICD-10-PCS; principal; 2018-10-17)
DX: A40.3 Sepsis due to Streptococcus pneumoniae (principal); R65.20 Severe sepsis without septic shock; J13 Pneumonia due to Streptococcus pneumoniae; G93.41 Metabolic encephalopathy; E87.2 Acidosis; J96.00 Acute respiratory failure, unspecified whether with hypoxia or hypercapnia; G04.90 Encephalitis and encephalomyelitis, unspecified; G06.0 Intracranial abscess and granuloma; J32.9 Chronic sinusitis, unspecified; I77.2 Rupture of artery; I11.0 Hypertensive heart disease with heart failure; I50.31 Acute diastolic (congestive) heart failure; E87.1 Hypo-osmolality and hyponatremia; J44.0 Chronic obstructive pulmonary disease with (acute) lower respiratory infection; J44.1 Chronic obstructive pulmonary disease with (acute) exacerbation; B37.0 Candidal stomatitis; I25.10 Atherosclerotic heart disease of native coronary artery without angina pectoris; I25.2 Old myocardial infarction; I48.0 Paroxysmal atrial fibrillation; I49.3 Ventricular premature depolarization; R41.0 Disorientation, unspecified; T40.4X5A Adverse effect of other synthetic narcotics, initial encounter; T42.4X5A Adverse effect of benzodiazepines, initial encounter; T81.89XA Other complications of procedures, not elsewhere classified, initial encounter; F41.9 Anxiety disorder, unspecified; G89.29 Other chronic pain; F32.9 Major depressive disorder, single episode, unspecified; Z95.1 Presence of aortocoronary bypass graft; Z87.891 Personal history of nicotine dependence
CPT/HCPCS: 36415; 36600; 70496; 70498; 71045; 71046; 71275; 74018; 80048; 80053; 80061; 80171; 80306; 81000; 82271; 82805; 83605; 83690; 83735; 83874; 83880; 84100; 84443; 84478; 84484; 85007; 85025; 85027; 85610; 85730; 86703; 87040; 87070; 87077; 87081; 87088; 87181; 87184; 87205; 87804; 93005; 93041; 94002; 94003; 94640; 94760; 94799

== ENCOUNTER 2018-11-26 10:27 | Emergency (ER) | payer OTHER ==
[~2018-11-26] VITALS: Ht 157.5 cm; Wt 49.9 kg
[~2018-11-26 10:27] MED LIST changes: +BENZ100C18 PO; +DULO30CA3 PO; +ONDN4T PO; +VARE1TAB22 PO; +[UNRECOGNIZED DRUG - CODE] TOP
--- NOTE | 2018-11-26 11:46 | NUR ---
pt feeding tube site cleaned with surgical scrub and sterile water at this time.
--- NOTE | 2018-11-26 11:53 | ED GI ---
General Chief Complaint: Catheter/Drain/Tube Problems Stated Complaint: PAIN AROUND FEEDING TUBE,DRAINAGE Nursing Triage Note: Pt reports recently being in and having a feeding tube placed. Pt states, "No one wants to take this thing out, and I don't have a doctor." Pt reports being seen in the surgical center today and the nurses there felt the area around appeared infected and told pt to be seen today. Pt reports the area feeling irritated yesterday and "a button" popped out. Pt c/o pain and irriation at site. No other symptoms reported at this time. Sepsis Screen: No Definite Risk Source of Information: Patient Exam Limitations: No Limitations History of Present Illness Date Seen by Provider: Nov 26, 2018 Time Seen by Provider: 11:37 Initial Comments Here with report of drainage around the feeding tube. She is worried about infection. Apparently there is a button that was associated with this tube has fallen off. This was placed at after she had a severe sepsis event and prolonged hospitalization. She is not actually using the tube. Denies fever or chills. She does not have tube care instructions and does not know how to clean around the tube. Timing/Duration: 2-3 Days Severity/Quality: Mild Location: LLQ Radiation: No Radiation Associated Symptoms: No Fever/Chills, No Nausea/Vomiting, No Weakness Allergies and Home Medications Allergies Coded Allergies: No Known Drug Allergies (Unverified , 08/23/18) Home Medications Amiodarone HCl 200 Mg Tablet, 200 MG PO DAILY, (Reported) TAKE UNTIL 10-21-18 Aspirin 81 Mg Tab.chew, 81 MG PO DAILY, (Reported) Atorvastatin Calcium 20 Mg Tablet, 20 MG PO HS, (Reported) Benzonatate 100 Mg Capsule, 200 MG PO TID PRN for COUGH, (Reported) Duloxetine HCl 30 Mg Capsule.dr, 30 MG PO BID, (Reported) Gabapentin 800 Mg Tablet, 800 MG PO QID, (Reported) Lisinopril 5 Mg Tablet, 5 MG PO DAILY, (Reported) Melatonin 5 Mg Capsule, 5 MG PO HS PRN for SLEEP, (Reported) Metoprolol Succinate 25 Mg Tab.er.24h, 25 MG PO DAILY, (Reported) Ondansetron HCl 4 Mg Tab, 8 MG PO BID PRN for NAUSEA/VOMITING-1ST LINE, ( Reported) TAKES 2 (4MG) TABLETS Sodium Hypochlorite 473 Ml Solution, TOP BID, (Reported) PACK WOUND WITH 4X4 GAUZE AND CHANGE DRESSING TWICE DAILY Varenicline Tartrate 1 Mg Tablet, 1 MG PO BID, (Reported) Patient Home Medication List Home Medication List Reviewed: Yes Review of Systems Review of Systems Constitutional: see HPI; No chills, No fever Respiratory: No Symptoms Reported Cardiovascular: No Symptoms Reported Gastrointestinal: See HPI Skin: change in color (mild erythema around feeding tube), other (clear mucoid drainage around feeding tube) Past Akqssno-Gtpwre-Wpudel Hx Past Med/Social Hx: Reviewed Nursing Past Med/Soc Hx Patient Social History Alcohol Use: Denies Use Recreational Drug Use: No Smoking Status: Former Smoker Type Used: Cigarettes Former Smoker, Quit: Jul 22, 2018 2nd Hand Smoke Exposure: Yes (quit since recent hospitalization) Recent Foreign Travel: No Contact w/Someone Who Travel: No Recent Infectious Disease Expo: No Recent Hopitalizations: Yes (11/30) Physical Abuse: No Sexual Abuse: No Immunizations Up To Date Tetanus Booster (TDap): Unknown PED Vaccines UTD: Yes Date of Pneumonia Vaccine: Jul 17, 2017 Date of Influenza Vaccine: Aug 03, 2018 Seasonal Allergies Seasonal Allergies: No Past Medical History Surgeries: Yes (CARPAL TUNNEL, OPEN HEART-4 VESSEL CABG 07/30/18) Abdominal, Cardiac, CABG, Hysterectomy, Oophorectomy, Open Heart Surgery, Orthopedic, Vascular Surgery Respiratory: Yes Asthma, Pneumonia, COPD Currently Using CPAP: No Currently Using BIPAP: No Cardiac: Yes ([facility] 07/2018 WITH 4 VESSEL CABG 07/30/18) Coronary Artery Disease, Heart Attack, High Cholesterol, Hypertension Neurological: No Female 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 Disorders: Denies 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 Genitourinary: No Gastrointestinal: No Musculoskeletal: Yes (PSORIATIC ARTHRITIS) Degenerate Disk Disease, Arthritis, Chronic Back Pain Endocrine: No HEENT: Yes (EDENTULOUS, R mastoid bone removed) Cancer: No Psychosocial: No Integumentary: Yes (POST OP WOUND INFECTION TO LEGS POST CABG) Psoriasis Blood Disorders: Yes (POST OP ANEMIA 07/2018--4 UNITS OF BLOOD POST OP) Adverse Reaction/Blood Tranf: No Family Medical History Reviewed Nursing Family Hx No Pertinent Family Hx Physical Exam Vital Signs Vital Signs - First Documented 11/26/18 11:20 Temp 98.5 Pulse 67 Resp 14 B/P (MAP) 108/48 (68) Pulse Ox 99 O2 Delivery Room Air Capillary Refill : Less Than 3 Seconds Height/Weight/BMI Height: 5'2.00" Weight: 110lbs. 0.0oz. [id number]; 24.9 BMI Method:Stated General Appearance: WD/WN, no apparent distress Respiratory: lungs clear, normal breath sounds Cardiovascular: regular rate, rhythm, no murmur Gastrointestinal: non tender, soft, other (feeding to his left lateral) Neurologic/Psychiatric: alert, oriented x 3 Skin: warm/dry, other (mild erythema under feeding tube retainer. Mucoid type drainage at feeding tube site that cleaned well. No significant surrounding signs and symptoms of infection) Procedures/Interventions Date of ETT Placement: Oct 17, 2018 Time of ETT Placement: 1441 Progress/Results/Core Measures Results/Orders Vital Signs/I&O 11/26/18 11:20 Temp 98.5 Pulse 67 Resp 14 B/P (MAP) 108/48 (68) Pulse Ox 99 O2 Delivery Room Air Blood Pressure Mean: 68 Progress Progress Note : Progress Note Seen and evaluated. Feeding tube site cleaned. Cleaning instructions given as well as care instructions. Discharge home with return precautions. Patient verbalize understanding instructions and agreement with plan. I did give her names of other local surgeons to follow-up with as she is saying that this tube can come out. I'm not sure if this is the case or not. I will send a copy of the chart to Dr. Nance, the physician she is post start seeing [facility]. Discharged home with return precautions. Patient verbalize understanding instructions and agreement with plan. Departure Impression Primary Impression: Complication of feeding tube Additional Impression: Encounter for tube feeding instruction Disposition: 01 HOME, SELF-CARE Condition: Improved Departure-Patient Inst. Decision time for Depature: 11:52 Referrals: [facility] [place] ([place]P) Primary Care Physician JOE VARMA APRN (Family) Primary Care Physician KIMMIE DELGADO BRETT D DO KIDO, TAKAAKI MD Patient Instructions: How to Care for Your PEG Tube Add. Discharge Instructions: All discharge instructions reviewed with patient and/or family. Voiced understanding. Call the clinic for appointment for recheck and further evaluation. You may also follow up with the surgeons listed order choice to evaluate your feeding tube. Return for worse pain, fever, vomiting, weakness, breathing problems or other concerns as needed. You should keep the feeding tube site clean. You may shower did not soak the area. It is okay to use warm water and gentle soap around the area. You may replace the dressing as needed. Return for worse pain, fever, vomiting, increasing redness, foul-smelling drainage or other concerns as needed. DAREN ANGELES MD Nov 26, 2018 11:53
[2018-11-26 12:25] VITALS: BP 132/84
== END 2018-11-26 12:25 | disposition home or self-care (01) ==
LOC: EDUNIT# 10:27 → ER 10:29
DX: K94.29 Other complications of gastrostomy (principal); J44.9 Chronic obstructive pulmonary disease, unspecified; I25.10 Atherosclerotic heart disease of native coronary artery without angina pectoris; I25.2 Old myocardial infarction; E78.00 Pure hypercholesterolemia, unspecified; I10 Essential (primary) hypertension; Z79.82 Long term (current) use of aspirin; Z87.891 Personal history of nicotine dependence; Z98.890 Other specified postprocedural states; Z95.1 Presence of aortocoronary bypass graft; Z90.710 Acquired absence of both cervix and uterus; Z87.01 Personal history of pneumonia (recurrent)
CPT/HCPCS: 99281

== ENCOUNTER 2018-12-02 19:53 | Emergency (ER) | payer OTHER ==
[~2018-12-02] VITALS: Ht 157.5 cm; Wt 54.0 kg
--- OUTSIDE RECORDS SUMMARY | 2018-12-02 20:01 | XMS REPORT | Clinical Summary ---
Author Author [facility] Organization [facility] Address Unknown Phone Unavailable Care Team Providers Care Machine Quilt Stuffer Name Role Phone Tamia Fonseca MD PCP Source Comments Some departments are not documenting in the electronic medical record. If you do not see the information that you expected, contact Release of Information in the Health Information Management department at [phone] for further assistance in locating additional records.[facility] Allergies No Known Allergies Medications End Date Status Medication Sig Dispensed Refills Start Date Active furosemide (LASIX) 20 mg Take 20 mg by 0 tablet mouth every morning. Active aspirin 81 mg chewable one tablet by 90 tablet 3 tablet Per OG Tube 9 route daily. Take with food. Active atorvastatin (LIPITOR) 20 one tablet by 90 tablet 3 mg tablet Per OG Tube 9 route at bedtime daily. Active budesonide respule Inhale 2 mL 60 mL 3 (PULMICORT) 0.5 mg/2 mL solution by 9 nebulizer solution nebulizer as directed twice daily. Active ipratropium/albuterol Inhale one 0 (COMBIVENT RESPIMAT) puff by mouth 9 20-100 mcg/actuation mist into the inhaler lungs every 4 hours as needed. Active melatonin 3 mg tab Take one 0 tablet by 9 mouth at bedtime daily. Active nicotine (NICODERM CQ Apply one 28 patch 2 STEP 1) 21 mg/day patch to top 9 patchIndications: Smoking of skin as Cessation directed every 24 hours. Rotate patch location. Indications: Stop Smoking Active potassium chloride 20 15 mL by Per 473 mL 0 mEq/15 mL oral solution OG Tube route 9 daily. Active sertraline (ZOLOFT) 50 mg Take one 0 tablet tablet by 9 mouth at bedtime daily. Active acetaminophen (TYLENOL) 20.3 mL by 240 mL 0 160 mg/5 mL oral solution Per NG tube 9 route every 4 hours as needed (Temp >38.3C; please notify provider if administered for temp). Active ascorbic acid (VITAMIN C) one tablet by 90 tablet 3 500 mg tablet Per NG tube 9 route daily. Active cefTRIAXone (ROCEPHIN) 2 Administer 20 0 g solr mL through 9 vein every 12 hours. Active chlorhexidine gluconate Swish and 0 (PERIDEX) 0.12 % solution Spit 15 mL by 9 mouth as directed twice daily. Active collagenase (SANTYL) 250 Apply to 0 unit/g topical ointment bilateral 9 lower leg wounds twice daily, secure sressings with tape. Change dressings daily Active docusate (COLACE) 50 mg/5 10 mL by Per 0 mL oral solution OG Tube route 9 twice daily. Active famotidine (PEPCID) 40 2.5 mL by Per 50 mL 0 mg/5 mL (8 mg/mL) susp NG tube route 9 oral suspension twice daily. Active heparin (porcine) PF Inject 0.5 mL 0 5,000units/0.5mL under the 9 injection syringe skin twice daily. Active metoprolol(#) (LOPRESSOR) Take 3.75 mL 0 10 mg/mL via feeding 9 tube twice daily. Active milk of magnesia (CONC) 10 mL by Per 360 mL 0 2,400 mg/10 mL oral OG Tube route 9 suspension daily. Active oxyCODONE (ROXICODONE) 1 5-15 mL by 0 mg/mL oral solution Per NG tube 9 route every 4 hours as needed Active risperiDONE (RISPERDAL) 1 Take one 0 mg tablet tablet by 9 mouth at bedtime daily. Active senna/docusate 10 mL by Per 0 (SENOKOT-S) 8.8/50 mg /10 OG Tube route 9 mL solution twice daily. Active zinc sulfate 220 mg (50 one capsule 0 11/04/201 mg elemental zinc) by Per NG 9 capsule tube route daily. 11/03/2018 Discontinued amiodarone (CORDARONE) Take 200 mg 0 200 mg tablet by mouth daily. Take with food. 11/03/2018 Discontinued aspirin 81 mg chewable Chew 81 mg by 0 tablet mouth daily. Take with food. 11/03/2018 Discontinued atorvastatin (LIPITOR) 20 Take 20 mg by 0 mg tablet mouth at bedtime daily. 11/03/2018 Discontinued budesonide respule Inhale 1 mg 0 (PULMICORT) 0.5 mg/2 mL solution by nebulizer solution nebulizer as directed twice daily. 11/03/2018 Discontinued clopiDOGrel (PLAVIX) 75 Take 75 mg by 0 mg tablet mouth daily. 11/03/2018 Discontinued HYDROcodone/acetaminophen Take 1 tablet 0 (NORCO) 5/325 mg tablet by mouth every 6 hours as needed for Pain 11/03/2018 Discontinued ipratropium/albuterol Inhale 1 puff 0 (COMBIVENT RESPIMAT) by mouth into 20-100 mcg/actuation mist the lungs inhaler every 4 hours as needed. 11/03/2018 Discontinued lisinopril (PRINIVIL; Take 5 mg by 0 ZESTRIL) 5 mg tablet mouth daily. 11/03/2018 Discontinued melatonin 3 mg tab Take 5 mg by 0 mouth at bedtime daily. 11/03/2018 Discontinued metoprolol XL (TOPROL XL) Take 25 mg by 0 25 mg extended release mouth daily. tablet 11/03/2018 Discontinued nicotine (NICODERM CQ Apply 1 patch 0 STEP 1) 21 mg/day to top of patchIndications: Smoking skin as Cessation directed every 24 hours. Rotate patch location. 11/03/2018 Discontinued oxyCODONE/acetaminophen Take 1 tablet 0 (PERCOCET; ENDOCET; by mouth ROXICET) 5/325 mg tablet every 6 hours as needed for Pain 11/03/2018 Discontinued polyethylene glycol 3350 Take 17 g by 0 (MIRALAX) 17 g packet mouth twice daily. 11/03/2018 Discontinued potassium chloride SR Take 20 mEq 0 (K-DUR) 20 mEq tablet by mouth daily. Take with a meal and a full glass of water. 11/03/2018 Discontinued sertraline (ZOLOFT) 50 mg Take 50 mg by 0 tablet mouth at bedtime daily. 11/03/2018 Discontinued varenicline (CHANTIX Take 1 mg by 0 CONTINUING MONTH BOX) 1 mouth twice mg tablet daily. Take with 8 oz of water and after a meal. 11/03/2018 Discontinued gabapentin (NEURONTIN) Take 800 mg 0 800 mg tablet by mouth four times daily. 11/03/2018 Discontinued acetic acid 0.25 % by Irrigation 0 irrigation solution route daily. 11/03/2018 Discontinued ondansetron (ZOFRAN) 4 mg Take 8 mg by 0 tablet mouth twice daily as needed for Nausea or Vomiting. 11/05/2018 cefepime (MAXIPIME) 2 Administer 0 g/20 mL 2 g in sodium two g through 9 chloride 0.9% (NS) 0.9 % vein every 8 100 mL IVPB (MB+) hours for 2 days. 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 Cerebritis 10/26/2018 Abscess of brain 10/26/2018 Paroxysmal atrial fibrillation 10/25/2018 Altered mental status, unspecified 10/20/2018 Pneumonia due to infectious organism 10/19/2018 Acute respiratory failure with hypoxia and hypercapnia 10/19/2018 Resolved Problems Problem Noted Date Resolved Date Influenza A 10/26/2018 11/03/2018 Encounters Care Team Description Date Type Specialty Duy Burch MD Other 11/27/2018 Telephone Otolaryngology Ty Sanchez MD Abscess of brain (Primary Dx) 11/20/2018 Orders Only Neurosurgery Gerri Castro MD Outpatient Antibiotic Therapy (Opat) 11/05/2018 Telephone Infectious Diseases Duy Burch MD MASTOIDECTOMY - SIMPLE, TYMPANOPLASTY 10/29/2018 Surgery Jose Whalen, VIGNESH 10/29/2018 Anesthesia Event Jose Whalen, VIGNESH 10/26/2018 Anesthesia Cardiology Event Arlin Black CRNA 10/23/2018 Anesthesia Cardiology Event Farhad Allen MD 10/23/2018 Hospital Cardiology Encounter Rosalba Amezcua RN 10/23/2018 Telephone Cardiology Kelton Zelaya MD Lackamp, Aaron, MD Palmieri, Katherine, MD Pneumonia due to infectious organism 10/19/2018 Hospital - Encounter 11/03/2018 10/19/2018 Hospital Radiology Encounter 10/19/2018 Hospital Radiology Encounter 10/18/2018 Hospital Radiology Encounter 10/17/2018 Hospital Radiology Encounter 10/17/2018 Hospital Radiology Encounter 10/16/2018 Hospital Radiology Encounter 10/16/2018 Hospital Radiology Encounter 10/16/2018 Hospital Radiology Encounter from Last 3 Months Family History Medical History Relation Name Comments Heart Disease Brother [place] in 90s, with several stents Diabetes Sister Heart Attack Sister maker 95% blocked s/p stenting Psoriasis Sister Relation Name Status Comments Brother Sister Social History Date Tobacco Use Types Packs/Day Years Used Heavy Tobacco Smoker Cigarettes 2 45 Smokeless Tobacco: Former User Alcohol Use Drinks/Week oz/Week Comments No Alcohol Habits Answer Date Recorded How often do you have a drink containing alcohol? Never 10/20/2018 How many drinks containing alcohol do you have on Not asked a typical day when you are drinking? How often do you have six or more drinks on one Not asked occasion? Sex Assigned at Date Recorded Not on file Industry Job Start Date Occupation Not on file Not on file Not on file Travel End Travel History Travel Start No recent travel history available. Last Filed Vital Signs Time Taken Vital Sign Reading 11/03/2018 2:00 PM CDT Blood Pressure 134/68 11/03/2018 2:00 PM CDT Pulse 96 11/03/2018 8:00 AM CDT Temperature 37.1 C (98.8 F) - Respiratory Rate - 11/03/2018 1:00 PM CDT Oxygen Saturation 100% - Inhaled Oxygen - Concentration 11/03/2018 5:30 AM CDT Weight 52.2 kg (115 lb 1.3 oz) 10/23/2018 3:51 PM CDT Height 163 cm (5' 4.17") 10/23/2018 3:51 PM CDT Body Mass Index 19.65 Plan of Treatment Health Maintenance Due Date Last Done Comments HEPATITIS C SCREENING 1961 PHYSICAL (COMPREHENSIVE) 1968 EXAM HIV SCREENING 1976 DTAP/TDAP VACCINES (1 - 1979 Tdap) CERVICAL CANCER SCREENING 1991 BREAST CANCER SCREENING 2001 COLORECTAL CANCER 2011 SCREENING SHINGLES RECOMBINANT 2011 VACCINE (1 of 2) INFLUENZA VACCINE 03/14/2019 Implants Device Identifier Shelf Expiration Date Model / Serial / Lot Implanted Type Area Manufactur er 12/14/2026 [id number] / [id number] / [id number] Prosthesis Ossicular 1.27mm Yovani Right: Ear OLYMPUS Ear Reconstruction Yovani - AMER [id number] Implanted: Qty: 1 on 10/29/2018 by Duy Burch MD 12/14/2026 [id number] / [id number] / [id number] Prosthesis Ossicular 1.27mm Yovani Left: Ear OLYMPUS Ear Reconstruction Yovani - AMER [id number] Implanted: Qty: 1 on 10/29/2018 by Duy Burch MD Procedures Comments Procedure Name Priority Date/Time Associated Diagnosis PHOSPHORUS Routine 11/03/2018 5:42 AM CDT MAGNESIUM Routine 11/03/2018 5:42 AM CDT BASIC METABOLIC PANEL Routine 11/03/2018 5:42 AM CDT CBC Routine 11/03/2018 5:42 AM CDT IONIZED CALCIUM Routine 11/03/2018 5:42 AM CDT PROCALCITONIN STAT 11/02/2018 9:55 AM CDT PHOSPHORUS Routine 11/02/2018 3:45 AM CDT MAGNESIUM Routine 11/02/2018 3:45 AM CDT BASIC METABOLIC PANEL Routine 11/02/2018 3:45 AM CDT CBC AND DIFF Routine 11/02/2018 3:45 AM CDT IONIZED CALCIUM Routine 11/02/2018 3:45 AM CDT IR GASTROSTOMY Routine 11/01/2018 5:03 PM CDT MAGNESIUM Routine 11/01/2018 1:53 PM CDT POTASSIUM Routine 11/01/2018 1:53 PM CDT PHOSPHORUS Routine 11/01/2018 4:15 AM CDT MAGNESIUM Routine 11/01/2018 4:15 AM CDT BASIC METABOLIC PANEL Routine 11/01/2018 4:15 AM CDT CBC AND DIFF Routine 11/01/2018 4:15 AM CDT IONIZED CALCIUM Routine 11/01/2018 4:15 AM CDT CHEST SINGLE VIEW Routine 10/31/2018 11:48 AM CDT PHOSPHORUS Routine 10/31/2018 2:50 AM CDT MAGNESIUM Routine 10/31/2018 2:50 AM CDT BASIC METABOLIC PANEL Routine 10/31/2018 2:50 AM CDT CBC AND DIFF Routine 10/31/2018 2:50 AM CDT IONIZED CALCIUM Routine 10/31/2018 2:50 AM CDT BASIC METABOLIC PANEL STAT 10/30/2018 7:45 PM CDT POC IONIZED CALCIUM 10/30/2018 7:25 PM CDT POC SODIUM 10/30/2018 7:25 PM CDT POC POTASSIUM 10/30/2018 7:25 PM CDT POC HEMATOCRIT 10/30/2018 7:25 PM CDT POC BLOOD GAS ARTERIAL 10/30/2018 7:25 PM CDT CONSULT IV THERAPY TEAM Routine 10/30/2018 4:34 PM CDT SURGICAL PATHOLOGY 10/30/2018 9:38 AM CDT PHOSPHORUS Routine 10/30/2018 4:05 AM CDT MAGNESIUM Routine 10/30/2018 4:05 AM CDT BASIC METABOLIC PANEL Routine 10/30/2018 4:05 AM CDT CBC AND DIFF Routine 10/30/2018 4:05 AM CDT IONIZED CALCIUM Routine 10/30/2018 4:05 AM CDT TRACHEOSTOMY PLANNED 10/29/2018 Altered mental status, 5:00 PM CDT unspecified altered mental status type MASTOIDECTOMY - SIMPLE 10/29/2018 Altered mental status, 5:00 PM CDT unspecified altered mental status type POC IONIZED CALCIUM 10/29/2018 3:37 PM CDT POC SODIUM 10/29/2018 3:37 PM CDT POC POTASSIUM 10/29/2018 3:37 PM CDT POC HEMATOCRIT 10/29/2018 3:37 PM CDT POC BLOOD GAS RAYO 10/29/2018 3:37 PM CDT TRANSFUSE RBC'S Routine 10/29/2018 NON-BLEEDING PT 10:55 AM CDT US ABDOMEN COMPLETE Routine 10/29/2018 8:13 AM CDT BLOOD TYPE CONFIRMATION - 10/29/2018 ORDER ONLY IF REQUESTED 4:18 AM CDT BY LAB PHOSPHORUS Routine 10/29/2018 4:18 AM CDT MAGNESIUM Routine 10/29/2018 4:18 AM CDT BASIC METABOLIC PANEL Routine 10/29/2018 4:18 AM CDT CBC AND DIFF Routine 10/29/2018 4:18 AM CDT IONIZED CALCIUM Routine 10/29/2018 4:18 AM CDT TYPE & CROSSMATCH Routine 10/28/2018 5:01 PM CDT POTASSIUM Routine 10/28/2018 2:14 PM CDT IRON + BINDING CAPACITY + Routine 10/28/2018 %SAT+ FERRITIN 2:14 PM CDT RETICULOCYTE COUNT Routine 10/28/2018 2:14 PM CDT IONIZED CALCIUM Routine 10/28/2018 3:51 AM CDT PHOSPHORUS Routine 10/28/2018 3:43 AM CDT MAGNESIUM Routine 10/28/2018 3:43 AM CDT BASIC METABOLIC PANEL Routine 10/28/2018 3:43 AM CDT CBC AND DIFF Routine 10/28/2018 3:43 AM CDT BLOOD GASES, ARTERIAL STAT 10/27/2018 4:38 AM CDT IONIZED CALCIUM Routine 10/27/2018 4:38 AM CDT LIVER FUNCTION PANEL STAT 10/27/2018 4:18 AM CDT PHOSPHORUS Routine 10/27/2018 4:18 AM CDT MAGNESIUM Routine 10/27/2018 4:18 AM CDT BASIC METABOLIC PANEL Routine 10/27/2018 4:18 AM CDT CBC AND DIFF Routine 10/27/2018 4:18 AM CDT POTASSIUM Routine 10/26/2018 8:52 PM CDT MRI HEAD WO/W CONTRAST Routine 10/26/2018 5:18 AM CDT PHOSPHORUS Routine 10/26/2018 3:16 AM CDT MAGNESIUM Routine 10/26/2018 3:16 AM CDT BASIC METABOLIC PANEL Routine 10/26/2018 3:16 AM CDT CBC AND DIFF Routine 10/26/2018 3:16 AM CDT IONIZED CALCIUM Routine 10/26/2018 3:16 AM CDT PHOSPHORUS Routine 10/25/2018 2:00 PM CDT POTASSIUM Routine 10/25/2018 8:15 AM CDT POC GLUCOSE 10/25/2018 6:30 AM CDT CHEST SINGLE VIEW Routine 10/25/2018 4:08 AM CDT PHOSPHORUS Routine 10/25/2018 3:19 AM CDT MAGNESIUM Routine 10/25/2018 3:19 AM CDT BASIC METABOLIC PANEL Routine 10/25/2018 3:19 AM CDT CBC AND DIFF Routine 10/25/2018 3:19 AM CDT AMMONIA Routine 10/25/2018 3:19 AM CDT IONIZED CALCIUM Routine 10/25/2018 3:19 AM CDT POC GLUCOSE 10/24/2018 10:00 PM CDT C DIFFICILE BY PCR STAT 10/24/2018 6:30 PM CDT POTASSIUM Routine 10/24/2018 9:56 AM CDT MAGNESIUM Routine 10/24/2018 9:56 AM CDT VANCOMYCIN TROUGH Routine 10/24/2018 9:56 AM CDT IONIZED CALCIUM Routine 10/24/2018 2:00 AM CDT MAGNESIUM Routine 10/24/2018 2:00 AM CDT CBC AND DIFF Routine 10/24/2018 2:00 AM CDT BASIC METABOLIC PANEL Routine 10/24/2018 2:00 AM CDT PHOSPHORUS Routine 10/24/2018 2:00 AM CDT ABDOMEN AP ONLY Routine 10/23/2018 9:27 PM CDT HERPES SIMPLEX PCR - STAT 10/23/2018 NON-BLOOD 4:15 PM CDT GLUCOSE-CSF STAT 10/23/2018 4:15 PM CDT TOTAL PROTEIN-CSF STAT 10/23/2018 4:15 PM CDT CELL COUNT W/DIFF-CSF STAT 10/23/2018 4:15 PM CDT GRAM STAIN 10/23/2018 4:15 PM CDT CULTURE-CSF W/SENSITIVITY STAT 10/23/2018 4:15 PM CDT JYOTSNA W/O CONTRAST & W/ 3D Routine 10/23/2018 ON CART 3:51 PM CDT POTASSIUM STAT 10/23/2018 1:17 PM CDT BLOOD GASES, ARTERIAL STAT 10/23/2018 3:25 AM CDT IONIZED CALCIUM Routine 10/23/2018 3:25 AM CDT MAGNESIUM Routine 10/23/2018 3:25 AM CDT PHOSPHORUS Routine 10/23/2018 3:25 AM CDT CBC AND DIFF Routine 10/23/2018 3:25 AM CDT BASIC METABOLIC PANEL Routine 10/23/2018 3:25 AM CDT CULTURE-BLOOD Routine 10/22/2018 W/SENSITIVITY 12:36 PM CDT CONSULT IV THERAPY TEAM STAT 10/22/2018 12:01 PM CDT CULTURE-BLOOD Routine 10/22/2018 W/SENSITIVITY 11:43 AM CDT BLOOD GASES, ARTERIAL STAT 10/22/2018 3:15 AM CDT IONIZED CALCIUM Routine 10/22/2018 3:15 AM CDT MAGNESIUM Routine 10/22/2018 3:15 AM CDT PHOSPHORUS Routine 10/22/2018 3:15 AM CDT CBC AND DIFF Routine 10/22/2018 3:15 AM CDT BASIC METABOLIC PANEL Routine 10/22/2018 3:15 AM CDT VANCOMYCIN TROUGH Routine 10/21/2018 9:41 PM CDT SODIUM Routine 10/21/2018 1:35 PM CDT ABDOMEN AP ONLY CRUZ 10/21/2018 10:38 AM CDT IONIZED CALCIUM Routine 10/21/2018 3:10 AM CDT MAGNESIUM Routine 10/21/2018 3:10 AM CDT PHOSPHORUS Routine 10/21/2018 3:10 AM CDT CBC AND DIFF Routine 10/21/2018 3:10 AM CDT BASIC METABOLIC PANEL Routine 10/21/2018 3:10 AM CDT RVP VIRAL PANEL PCR Routine 10/20/2018 11:05 PM REPERTOIRE MANAGER ABDOMEN AP ONLY Routine 10/20/2018 8:25 PM REPERTOIRE MANAGER ABDOMEN AP ONLY Routine 10/20/2018 8:18 PM REPERTOIRE MANAGER LIVER FUNCTION PANEL Routine 10/20/2018 3:57 PM REPERTOIRE MANAGER AMMONIA Routine 10/20/2018 3:57 PM REPERTOIRE MANAGER MRI HEAD WO/W CONTRAST STAT 10/20/2018 3:[address] LOWER EXTREM W CONT Routine 10/20/2018 BILAT 1:[address] INT AUD CANAL WO Routine 10/20/2018 CONTRAST 1:50 PM REPERTOIRE MANAGER POTASSIUM Routine 10/20/2018 11:17 AM REPERTOIRE MANAGER ACETAMINOPHEN LEVEL Routine 10/20/2018 11:17 AM REPERTOIRE MANAGER 2-D + DOPPLER Routine 10/20/2018 ECHOCARDIOGRAM 10:08 AM REPERTOIRE MANAGER BLOOD GASES, ARTERIAL Routine 10/20/2018 3:49 AM REPERTOIRE MANAGER IONIZED CALCIUM Routine 10/20/2018 3:38 AM REPERTOIRE MANAGER MAGNESIUM Routine 10/20/2018 3:38 AM REPERTOIRE MANAGER PHOSPHORUS Routine 10/20/2018 3:38 AM REPERTOIRE MANAGER CBC AND DIFF Routine 10/20/2018 3:38 AM REPERTOIRE MANAGER BASIC METABOLIC PANEL Routine 10/20/2018 3:38 AM REPERTOIRE MANAGER GRAM STAIN 10/20/2018 1:28 AM REPERTOIRE MANAGER CULTURE-WOUND/TISSUE/FLUI Routine 10/20/2018 D(AEROBIC 1:28 AM REPERTOIRE MANAGER ONLY)W/SENSITIVITY GRAM STAIN 10/20/2018 1:07 AM REPERTOIRE MANAGER CULTURE-RESP,LOWER Routine 10/20/2018 W/SENSITIVITY 1:07 AM REPERTOIRE MANAGER BLOOD GASES, ARTERIAL STAT 10/20/2018 1:[address] HEAD WO CONTRAST Routine 10/20/2018 12:45 AM REPERTOIRE MANAGER CULTURE-BLOOD Routine 10/20/2018 W/SENSITIVITY 12:12 AM REPERTOIRE MANAGER CULTURE-BLOOD Routine 10/20/2018 W/SENSITIVITY 12:11 AM REPERTOIRE MANAGER CHEST SINGLE VIEW STAT 10/19/2018 11:45 PM REPERTOIRE MANAGER PHENCYCLIDINES-URINE Routine 10/19/2018 RANDOM 11:36 PM REPERTOIRE MANAGER OPIATES-URINE RANDOM Routine 10/19/2018 11:36 PM REPERTOIRE MANAGER COCAINE-URINE RANDOM Routine 10/19/2018 11:36 PM REPERTOIRE MANAGER CANNABINOIDS-URINE RANDOM Routine 10/19/2018 11:36 PM REPERTOIRE MANAGER BENZODIAZEPINES-URINE Routine 10/19/2018 RANDOM 11:36 PM REPERTOIRE MANAGER BARBITURATES-URINE RANDOM Routine 10/19/2018 11:36 PM REPERTOIRE MANAGER AMPHETAMINES-URINE RANDOM Routine 10/19/2018 11:36 PM REPERTOIRE MANAGER PHOSPHORUS STAT 10/19/2018 11:36 PM REPERTOIRE MANAGER MAGNESIUM STAT 10/19/2018 11:36 PM REPERTOIRE MANAGER IONIZED CALCIUM STAT 10/19/2018 11:36 PM REPERTOIRE MANAGER LACTIC ACID(LACTATE) STAT 10/19/2018 11:36 PM REPERTOIRE MANAGER COMPREHENSIVE METABOLIC STAT 10/19/2018 PANEL 11:36 PM REPERTOIRE MANAGER PROTIME INR (PT) STAT 10/19/2018 11:36 PM REPERTOIRE MANAGER CBC AND DIFF STAT 10/19/2018 11:36 PM REPERTOIRE MANAGER GENERAL RAD CHEST Routine 10/19/2018 Diagnosis unknown EXTERNAL IMAGING 6:39 PM REPERTOIRE MANAGER CTA HEAD EXTERNAL IMAGING Routine 10/19/2018 Diagnosis unknown 6:38 PM REPERTOIRE MANAGER TELEMETRY STRIPS-SCAN 10/19/2018 12:00 AM REPERTOIRE MANAGER ECG-SCAN 10/19/2018 12:00 AM REPERTOIRE MANAGER GENERAL RAD CHEST Routine 10/18/2018 Diagnosis unknown EXTERNAL IMAGING 12:00 AM REPERTOIRE MANAGER GENERAL RAD CHEST Routine 10/17/2018 Diagnosis unknown EXTERNAL IMAGING 12:15 AM REPERTOIRE MANAGER GENERAL RAD CHEST Routine 10/17/2018 Diagnosis unknown EXTERNAL IMAGING 12:00 AM REPERTOIRE MANAGER GENERAL RAD ABDOMEN Routine 10/16/2018 Diagnosis unknown EXTERNAL IMAGING 12:30 AM REPERTOIRE MANAGER GENERAL RAD CHEST Routine 10/16/2018 Diagnosis unknown EXTERNAL IMAGING 12:[address] CHEST EXTERNAL IMAGING Routine 10/16/2018 Diagnosis unknown 12:00 AM REPERTOIRE MANAGER from Last 3 Months Results * CBC (11/03/2018 5:42 AM CDT) White Blood 11.2 (H) 4.5 - 11.0 K/UL [facility] Cells RBC 3.39 (L) 4.0 - 5.0 M/UL [facility] Hemoglobin 10.3 (L) 12.0 - 15.0 GM/DL [facility] Hematocrit 31.6 (L) 36 - 45 % [facility] MCV 93.1 80 - 100 FL [facility] MCH 30.3 26 - 34 PG [facility] MCHC 32.6 32.0 - 36.0 G/DL [facility] RDW 13.3 11 - 15 % [facility] Platelet Count 643 (H) 150 - 400 K/UL [facility] MPV 9.1 7 - 11 FL [facility] Specimen Blood Performing Organization [facility] Phone Number [facility] [address] [place] [address] * PHOSPHORUS (11/03/2018 5:42 AM CDT) Only the most recent of 17 results within the time period is included. Phosphorus 5.0 (H)Comment: NOTE NEW 2.0 - 4.5 MG/DL [facility] REFERENCE RANGES Specimen Blood Performing Organization Address [facility] [address] [place] [address] * MAGNESIUM (11/03/2018 5:42 AM CDT) Only the most recent of 18 results within the time period is included. Magnesium 2.2 1.6 - 2.6 mg/dL [facility] Specimen Blood Performing Organization Address [facility] Phone Number [facility] [address] [place] [address] * IONIZED CALCIUM (11/03/2018 5:42 AM CDT) Only the most recent of 16 results within the time period is included. Ionized Calcium 1.26 1.0 - 1.3 MMOL/L [facility] Specimen Blood Performing Organization Address [facility]/Zipcode Phone Number [facility] [address] [place] [address] * BASIC METABOLIC PANEL (11/03/2018 5:42 AM CDT) Only the most recent of 16 results within the time period is included. Sodium 137 137 - 147 MMOL/L [facility] Potassium 4.3 3.5 - 5.1 MMOL/L [facility] Chloride 105 98 - 110 MMOL/L [facility] CO2 24 21 - 30 MMOL/L [facility] Anion Gap 8 3 - 12 [facility] Glucose 131 (H) 70 - 100 MG/DL [facility] Blood Urea 26 (H) 7 - 25 MG/DL [facility] Nitrogen Creatinine 0.63 0.4 - 1.00 MG/DL [facility] Calcium 10.7 (H) 8.5 - 10.6 MG/DL [facility] eGFR Non >60 >60 mL/min [facility] Comment: [place] The eGFR is not validated for use in drug dosing adjustments.Continue to use estimated creatinine clearance per dosing reference text.Please contact the Clinical Pharmacist for questions. eGFR >60 >60 mL/min [facility] [place] Comment: The eGFR is not validated for use in drug dosing adjustments.Continue to use estimated creatinine clearance per dosing reference text.Please contact the Clinical Pharmacist for questions. Specimen Blood Performing Organization Address [facility] Phone Number [facility] [address] [place] [address] * PROCALCITONIN (11/02/2018 9:55 AM CDT) Pathologist [facility] Procalcitonin 0.07 <0.10 NG/ML [facility]IN [facility] Specimen Blood Performing Organization Address [facility]/Zipcode Phone Number [facility] [address] [place] [address] * CBC AND DIFF (11/02/2018 3:45 AM CDT) Only the most recent of 15 results within the time period is included. White Blood 11.4 (H) 4.5 - 11.0 K/UL [facility] Cells RBC 3.65 (L) 4.0 - 5.0 M/UL [facility] Hemoglobin 11.1 (L) 12.0 - 15.0 GM/DL [facility] Hematocrit 33.9 (L) 36 - 45 % [facility] MCV 92.9 80 - 100 FL [facility] MCH 30.4 26 - 34 PG [facility] MCHC 32.8 32.0 - 36.0 G/DL [facility] RDW 13.4 11 - 15 % [facility] Platelet Count 739 (H) 150 - 400 K/UL [facility] MPV 9.3 7 - 11 FL [facility] Neutrophils 68 41 - 77 % [facility] Lymphocytes 20 (L) 24 - 44 % [facility] Monocytes 9 4 - 12 % [facility] Eosinophils 2 0 - 5 % [facility] Basophils 1 0 - 2 % [facility] Absolute 7.70 (H) 1.8 - 7.0 K/UL [facility] Neutrophil Count Absolute Lymph 2.20 1.0 - 4.8 K/UL [facility] Count Absolute 1.00 (H) 0 - 0.80 K/UL [facility] Monocyte Count Absolute 0.20 0 - 0.45 K/UL [facility] Eosinophil Count Absolute 0.20 0 - 0.20 K/UL [facility] Basophil Count Specimen Blood Performing Organization Address City/State/Zipcode Phone Number MAIN LAB [address] [place] [address] * IR GASTROSTOMY (11/01/2018 5:03 PM CDT) Impressions Performed At Successful placement of a percutaneous gastrojejunostomy tube using fluoroscopic [facility] guidance. Finalized by Alejo Broussard M.D. on 11/02/2018 8:15 AM. Dictated by Alejo Broussard M.D. on 11/02/2018 8:00 AM. Narrative Performed At Fluoroscopic guided gastrojejunostomy tube placement [facility] CLINICAL HISTORY: Dysphagia, requirement for tube feeding TECHNIQUE AND FINDINGS: Randall German M.D., the attending radiologist, was present for the procedure, personally reviewed the images, and formulated the interpretations and opinions expressed in this report. After informed written consent was obtained, the patient was brought to the fluoroscopy suite and placed in the supine position. The anterior abdomen was prepped and draped in the usual sterile fashion. 2% lidocaine was used to anesthetize the skin. The stomach was insufflated with air using a nasogastric feeding tube. 3 T-fasteners were placed inside the body the stomach under fluoroscopic guidance and the gastropexy was formed. A dermatotomy incision was made and an 18-gauge Seldinger needle was advanced inside the gastric lumen. Amplatz wire was then advanced through the needle. The EZIO 1 catheter was advanced over the Amplatz wire and placed within the proximal jejunum using a stiff Glidewire for guidance. The stiff Glidewire was exchanged for an Amplatz wire and the EZIO 1 catheter was removed. After dilators were placed over the Amplatz wire, a 22 Spanish peel-away sheath was advanced over the wire into the gastric lumen. The EZIO 1 catheter was then advanced over the Amplatz wire which was then exchanged for a stiff Glidewire. An 18 Spanish 45 cm gastrojejunostomy tube was advanced over the stiff Glidewire to the proximal jejunum. Contrast material was injected demonstrating excellent positioning of the catheter. Each lumen was flushed with saline and the catheter was secured in place with a Dao disc and zip tie. Sterile dressings were applied and the patient was taken and ICU in unchanged condition. Total radiation dose: 75 mg Contrast: 80 cc Visipaque 270 Procedure Note Interface, Radiant Results - 11/02/2018 8:18 AM CDT Fluoroscopic guided gastrojejunostomy tube placement CLINICAL HISTORY: Dysphagia, requirement for tube feeding TECHNIQUE AND FINDINGS: Randall German M.D., the attending radiologist, was present for the procedure, personally reviewed the images, and formulated the interpretations and opinions expressed in this report. After informed written consent was obtained, the patient was brought to the fluoroscopy suite and placed in the supine position. The anterior abdomen was prepped and draped in the usual sterile fashion. 2% lidocaine was used to anesthetize the skin. The stomach was insufflated with air using a nasogastric feeding tube. 3 T-fasteners were placed inside the body the stomach under fluoroscopic guidance and the gastropexy was formed. A dermatotomy incision was made and an 18-gauge Seldinger needle was advanced inside the gastric lumen. Amplatz wire was then advanced through the needle. The EZIO 1 catheter was advanced over the Amplatz wire and placed within the proximal jejunum using a stiff Glidewire for guidance. The stiff Glidewire was exchanged for an Amplatz wire and the EZIO 1 catheter was removed. After dilators were placed over the Amplatz wire, a 22 Spanish peel-away sheath was advanced over the wire into the gastric lumen. The EZIO 1 catheter was then advanced over the Amplatz wire which was then exchanged for a stiff Glidewire. An 18 Spanish 45 cm gastrojejunostomy tube was advanced over the stiff Glidewire to the proximal jejunum. Contrast material was injected demonstrating excellent positioning of the catheter. Each lumen was flushed with saline and the catheter was secured in place with a Dao disc and zip tie. Sterile dressings were applied and the patient was taken and ICU in unchanged condition. Total radiation dose: 75 mg Contrast: 80 cc Visipaque 270 IMPRESSION Successful placement of a percutaneous gastrojejunostomy tube using fluoroscopic guidance. Finalized by Alejo Broussard M.D. on 11/02/2018 8:15 AM. Dictated by Alejo Broussard M.D. on 11/02/2018 8:00 AM. Performing Organization Address City/[facility] Phone Number [facility] RESULTS * POTASSIUM (11/01/2018 1:53 PM CDT) Only the most recent of 7 results within the time period is included. Potassium 5.0 3.5 - 5.1 MMOL/L [facility] Specimen Blood Performing Organization Address City/[facility] Phone Number MAIN LAB [address] [place] [address] * CHEST SINGLE VIEW (10/31/2018 11:48 AM CDT) Only the most recent of 3 results within the time period is included. Impressions Performed At Progressing mixed opacities most apparent in the left perihilar region and left [facility] RESULTS midlung. The findings could reflect asymmetric edema or superimposed pneumonia. Persistent cardiomegaly with vascular congestion and small bilateral pleural effusions. Interval tracheostomy placement. Finalized by Eddie Galindo M.D. on 10/31/2018 12:14 PM. Dictated by Eddie Galindo M.D. on 10/31/2018 12:12 PM. Narrative Performed At CHEST SINGLE VIEW [facility] RESULTS History: pneumonia. Technique: Single portable AP upright view of the chest was obtained. Comparison: Comparison is made to an examination of 10/25/2018. Findings: A tracheostomy tube has been placed. Changes of prior sternotomy are again noted. Right jugular venous line is unchanged in position. Enteric tube passes into the stomach. There is unchanged generalized cardiomegaly with pulmonary vascular congestion. There has been progression of the mixed opacities in the left midlung. There is mild blunting of the costophrenic angles consistent with small pleural effusions. No pneumothorax is identified. Procedure Note Interface, Radiant Results - 10/31/2018 12:17 PM CDT CHEST SINGLE VIEW History: pneumonia. Technique: Single portable AP upright view of the chest was obtained. Comparison: Comparison is made to an examination of 10/25/2018. Findings: A tracheostomy tube has been placed. Changes of prior sternotomy are again noted. Right jugular venous line is unchanged in position. Enteric tube passes into the stomach. There is unchanged generalized cardiomegaly with pulmonary vascular congestion. There has been progression of the mixed opacities in the left midlung. There is mild blunting of the costophrenic angles consistent with small pleural effusions. No pneumothorax is identified. IMPRESSION Progressing mixed opacities most apparent in the left perihilar region and left midlung. The findings could reflect asymmetric edema or superimposed pneumonia. Persistent cardiomegaly with vascular congestion and small bilateral pleural effusions. Interval tracheostomy placement. Finalized by Eddie Galindo M.D. on 10/31/2018 12:14 PM. Dictated by Eddie Galindo M.D. on 10/31/2018 12:12 PM. Performing Organization Address City/[facility] Phone Number RAD RESULTS * POC BLOOD GAS ARTERIAL (10/30/2018 7:25 PM CDT) PH-ART-POC 7.34 (L) 7.35 - 7.45 [facility] MA[facility] [id number]-[id number] 50 (H) 35 - 45 MMHG [facility] PO2-ART-POC 103 (H) 80 - 100 MMHG [facility] Base Ex-ART-POC 1.0 MMOL/L [facility] O2 Sat-ART-POC 97.0 95 - 99 % [facility] Bicarbonate-ART 27.2 21 - 28 MMOL/L [facility] -POC Performing Organization Address [facility] Phone Number [facility] LAB [address] [place] [address] * POC SODIUM (10/30/2018 7:25 PM CDT) Only the most recent of 2 results within the time period is included. Sodium-POC 150 (H) 137 - 147 MMOL/L [facility] Performing Organization Address [facility] Phone Number MA[facility] LAB [address] [place] [address] * POC POTASSIUM (10/30/2018 7:25 PM CDT) Only the most recent of 2 results within the time period is included. Potassium-POC 4.2 3.5 - 5.1 MMOL/L [facility] Performing Organization Address [facility] Phone Number [facility] LAB [address] [place] [address] * POC IONIZED CALCIUM (10/30/2018 7:25 PM CDT) Only the most recent of 2 results within the time period is included. Ionized 1.43 (H) 1.0 - 1.3 MMOL/L MAIN LAB Calcium-POC Performing Organization Address [facility] Phone Number MAIN LAB [address] [place] [address] * POC HEMATOCRIT (10/30/2018 7:25 PM CDT) Only the most recent of 2 results within the time period is included. Hemoglobin POC 11.2 (L) 12.0 - 15.0 GM/DL MAIN LAB Hematocrit POC 33.0 (L) 36 - 45 % [facility] Performing Organization Address [facility] Phone Number MAIN LAB [address] [place] [address] * SURGICAL PATHOLOGY (10/30/2018 9:38 AM CDT) PATHOLOGY [facility] [email or web address] Department of Pathology and Laboratory Medicine [address] [place] [address] Surgical Pathology Office:[phone] :[phone] SURGICAL PATHOLOGY REPORT NAME: ETELVINA MORA SURG PATH #: [id number] MR #: [id number] SPECIMEN CLASS: [facility] BILLING #: [id number] ALT ID #:LOCATION: [id number] DATE OF PROCEDURE: 10/30/2018 AGE:58 SEX: F DATE RECEIVED: 10/30/2018 : 1960TIME RECEIVED:09:38 PHYSICIAN: DUY BURCH DATE OF REPORT: 11/01/2018 COPY TO:DATE OF PRINTIN11/01/2018 ############################## ############################## ############ Final Diagnosis: A. Fibrous tissue, "mastoid contents", excision: Necrosis, fibrosis and chronic inflammation. See comment. Comment: GMS stain for fungal organisms performed on block A1 is negative. Attestation: By this signature, I attest that I have personally formulated the final interpretation expressed in this report and that the above diagnosis is based upon my examination of the slides and/or other material indicated in this report. +++ +++ Kartik Mabry MD Resident [facility]/10/30/2018 ############################## ############################## ############ Material Received: A: mastoid contents History: 58-year-old female history of altered mental status, unspecified altered mental status type Gross Description: A. 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 section of specimen.(lmt) lt10/30/2018 Performing Organization Address City/State/Zipcode Phone Number MAIN LAB [address] [place] [address] * POC BLOOD GAS RAYO (10/29/2018 3:37 PM CDT) PH-RAYO-POC 7.33 7.30 - 7.40 MAIN LAB QRO9-CLQ-IYD 48 36 - 50 MMHG MAIN LAB PO2-RAYO-POC 51 (H) 33 - 48 MMHG [facility] Base Ex-RAYO-POC 0.0 MMOL/L [facility] O2 Sat-RAYO-POC 83.0 (H) 55 - 71 % [facility] Bicarbonate-RAYO 25.5 MMOL/L [facility] -POC Performing Organization Address City/State/Zipcode Phone Number MAIN LAB [address] [place] [address] * US ABDOMEN COMPLETE (10/29/2018 8:13 AM CDT) Impressions Performed At 1.Upper limits of normal size liver. [facility] RESULTS 2.Small amount of pericholecystic fluid interposed between the gallbladder and liver without wall thickening or cholelithiasis. This is nonspecific and can be seen in underlying liver disease or hypoalbuminemia. Approved by Juvenal Avitia M.D. on 10/29/2018 10:29 AM By my electronic signature, I attest that I have personally reviewed the images for this examination and formulated the interpretations and opinions expressed in this report Finalized by Edilson Tovar M.D. on 10/29/2018 1:54 PM. Dictated by uJvenal Avitia M.D. on 10/29/2018 8:28 AM. Narrative Performed At Complete abdominal ultrasound [facility] RESULTS Clinical Indication: Female, 58 years; right upper quadrant tenderness Technique: Multiple grayscale sonographic images were obtained of the abdomen with additional color Doppler acquisitions. Comparison: External CT chest October 16, 2018 Findings: Liver and Biliary System: Mildly heterogeneous echotexture, upper limits of normal size measuring 19.0 cm. No discrete hepatic masses are identified. There is no intrahepatic bile duct dilatation.The common duct measures 0.3 cm at the tashi hepatis.The gallbladder is nondistended without gallbladder wall thickening or cholelithiasis. There is a small amount of pericholecystic fluid interposed between the upper gallbladder and liver. Pancreas: Visualized portions of the pancreas are unremarkable. Spleen: Normal in size measuring 10.5 cm.A small splenule is noted. Aorta and IVC: Visualized portions of the IVC are normal in caliber. There is mild fusiform ectasia of the mid to distal aorta measuring up to 2.3 cm Kidneys and Bladder: The right kidney measures 11.4 cm.The left kidney measures 10.5 cm.No hydronephrosis. The urinary bladder is decompressed by an indwelling Salomon catheter. Peritoneal Space:No abdominopelvic ascites. Procedure Note Interface, Radiant Results - 10/29/2018 1:57 PM CDT Complete abdominal ultrasound Clinical Indication: Female, 58 years; right upper quadrant tenderness Technique: Multiple grayscale sonographic images were obtained of the abdomen with additional color Doppler acquisitions. Comparison: External CT chest October 16, 2018 Findings: Liver and Biliary System: Mildly heterogeneous echotexture, upper limits of normal size measuring 19.0 cm. No discrete hepatic masses are identified. There is no intrahepatic bile duct dilatation. The common duct measures 0.3 cm at the tashi hepatis. The gallbladder is nondistended without gallbladder wall thickening or cholelithiasis. There is a small amount of pericholecystic fluid interposed between the upper gallbladder and liver. Pancreas: Visualized portions of the pancreas are unremarkable. Spleen: Normal in size measuring 10.5 cm. A small splenule is noted. Aorta and IVC: Visualized portions of the IVC are normal in caliber. There is mild fusiform ectasia of the mid to distal aorta measuring up to 2.3 cm Kidneys and Bladder: The right kidney measures 11.4 cm. The left kidney measures 10.5 cm. No hydronephrosis. The urinary bladder is decompressed by an indwelling Salomon catheter. Peritoneal Space: No abdominopelvic ascites. IMPRESSION 1. Upper limits of normal size liver. 2. Small amount of pericholecystic fluid interposed between the gallbladder and liver without wall thickening or cholelithiasis. This is nonspecific and can be seen in underlying liver disease or hypoalbuminemia. Approved by Juvenal Avitia M.D. on 10/29/2018 10:29 AM By my electronic signature, I attest that I have personally reviewed the images for this examination and formulated the interpretations and opinions expressed in this report Finalized by Edilson Tovar M.D. on 10/29/2018 1:54 PM. Dictated by Juvenal Avitia M.D. on 10/29/2018 8:28 AM. Performing Organization Address City/State/Zipcode Phone Number [facility] RESULTS * BLOOD TYPE CONFIRMATION - ORDER ONLY IF REQUESTED BY LAB (10/29/2018 4:18 AM CDT) ABO/RH(D) O POS MAIN LAB Performing Organization Address City/State/Zipcode Phone Number MAIN LAB [address] [place] [address] * TYPE & CROSSMATCH (10/28/2018 5:01 PM CDT) [facility] Units Ordered 1 MAIN LAB Crossmatch 10/31/2018 [facility] MAIN LAB Expires Record Check 2ND TYPE REQUIRED MAIN LAB ABO/RH(D) O POS [facility] MAIN LAB Antibody Screen NEG [facility] MAIN LAB Electronic YES [facility] MAIN LAB Crossmatch Unit Number [id number] MAIN LAB Blood Component RBC,ADSOL,LEUKO REDUCED [facility] MAIN [facility] Type Unit Division 0 MAIN LAB Status OF Unit TRANSFUSED [facility] MAIN LAB Transfusion OK TO TRANSFUSE MAIN LAB Status Crossmatch COMPATIBLE,ELECTRONIC MAIN LAB Result Specimen Blood Performing Organization Address City/[facility]/Zipcode Phone Number MAIN LAB [address] [place] [address] * IRON + BINDING CAPACITY + %SAT+ FERRITIN (10/28/2018 2:14 PM CDT) [facility] Iron 21 (L) 50 - 160 MCG/DL MAIN LAB Iron 344 270 - 380 MCG/DL MAIN LAB Binding-TIBC % Saturation 6 (L) 28 - 42 % MAIN LAB Ferritin 168 10 - 200 NG/ML MAIN LAB Specimen Blood Performing Organization Address City/[facility]/Zipcode Phone Number MAIN LAB [address] [place] [address] * RETICULOCYTE COUNT (10/28/2018 2:14 PM CDT) [facility] Retic, 2.1 (H) 0.5 - 2.0 % [facility] MAIN [facility] Uncorrected Retic, 1.3 % [facility] Corrected Retic, Absolute 59.2 30 - 94 K/UL [facility] MAIN [facility] Specimen Blood Performing Organization Address City/[facility]/Zipcode Phone Number MAIN LAB [address] [place] [address] * BLOOD GASES, ARTERIAL (10/27/2018 4:38 AM CDT) Only the most recent of 5 results within the time period is included. Pathologist [facility] pH-Arterial 7.37 7.35 - 7.45 [facility] MAIN [facility] pCO2-Arterial 41 35 - 45 MMHG [facility] MAIN LAB pO2-Arterial 124 (H) 80 - 100 MMHG [facility] MAIN LAB Base 1.7 MMOL/L [facility] MAIN [facility] Deficit-Arteria l O2 Sat-Arterial 98.6 95 - 99 % MAIN LAB Bicarbonate-ART 23.0 21 - 28 MMOL/L [facility] MAIN [facility] -Earl Specimen Blood, arterial - Blood Performing Organization Address [facility] Phone Number [employer] [facility] [address] [place] [address] * LIVER FUNCTION PANEL (10/27/2018 4:18 AM CDT) Only the most recent of 2 results within the time period is included. Total Bilirubin 0.2 (L) 0.3 - 1.2 MG/DL [facility] MAIN [facility] Bilirubin, 0.2 <0.4 MG/DL [facility] MAIN [facility] Direct Albumin 2.8 (L) 3.5 - 5.0 G/DL [facility] MAIN [facility] Alk Phosphatase 23 (L) 25 - 110 U/L [facility] MAIN [facility] AST (SGOT) 15 7 - 40 U/L [facility] MAIN [facility] ALT (SGPT) 12 7 - 56 U/L [facility] MAIN [facility] Total Protein 6.0 6.0 - 8.0 G/DL [facility]IN [facility] Specimen Blood Performing Organization Address [facility] Phone Number [employer] [facility] [address] [place] [address] * MRI HEAD WO/W CONTRAST (10/26/2018 5:18 AM CDT) Only the most recent of 2 results within the time period is included. Impressions Performed At 1. Evolution of abnormal signal and now complete ring enhancement involving the [facility] RAD RESULTS lesion in the right inferior temporal lobe consistent with abscess. This lesion has not significantly changed in size with slight improvement in surrounding FLAIR hyperintensity likely reflecting localized cerebritis and/or edema. 2. Slight improvement in dependent diffusion restricting material within the lateral ventricles suggesting improving ventriculitis. 3. Decreased conspicuity of a left posterolateral convexity subdural fluid collection likely reflecting improved subdural empyema. 4. Redemonstration of extensive arachnoid pits, partially empty sella appearance, and partially visualized small right sphenoid wing encephalocele which may represent chronic intracranial hypertension. Areas of tegmen thinning and dehiscence are better demonstrated on prior CT internal auditory canal. 5. Improving diffuse paranasal sinusitis with persistent bilateral mastoid and middle ear effusions. Approved by Olvin Estrada M.D. on 10/26/2018 10:00 AM By my electronic signature, I attest that I have personally reviewed the images for this examination and formulated the interpretations and opinions expressed in this report Finalized by RAYMOND ALEJANDRO M.D. on 10/26/2018 1:29 PM. Dictated by Olvin Estrada M.D. on 10/26/2018 8:01 AM. Narrative Performed At EXAM: MRI BRAIN [facility] RAD RESULTS HISTORY: Right temporal lobe abscess. TECHNIQUE: Multiplanar and multisequence MR imaging of the head was performed. This was done both before and after the administration of gadolinium contrast. COMPARISON: MRI head October 20, 2018. CT head and CT internal auditory canal October 20, 2018. FINDINGS: No significant change in size of a T2 hyperintense lesion within the inferior right temporal lobe measuring up to 1.1 cm (series 8 image 6), previously 1.1 cm, with development of complete ring enhancement. Mild surrounding FLAIR hyperintensity has slightly improved with persistent restricted diffusion, however evaluation is limited in this region due to artifact. Unchanged tiny foci of increased DWI and ADC signal within the right centrum semiovale consistent with subacute to chronic lacunar infarct. Several additional FLAIR hyperintense supratentorial white matter lesions are seen in the cerebral white matter, likely age-appropriate. Known areas of tegmen thinning and dehiscence are better demonstrated on prior CT examinations. Slight improvement in abnormal FLAIR hyperintensity layering within the bilateral occipital horns of the lateral ventricles with associated restricted diffusion. Redemonstration of diffuse arachnoid pits with unchanged small right anterior middle cranial fossa/sphenoid wing encephalocele. A nearly empty sella appearance is again noted. Decreased conspicuity of the previously noted thin left posterior cerebral convexity FLAIR hyperintense fluid collection as well as thin dural enhancement along the left temporal and lateral cerebral convexity. The globes and orbits are grossly unremarkable. The vascular flow-voids are unremarkable. No evidence of acute infarct. Improvement in diffuse paranasal sinus mucosal thickening with persistent layering secretions in the bilateral maxillary sinuses demonstrating restricted diffusion. Partially visualized nasogastric tube. There are bilateral mastoid air middle ear effusions. Procedure Note Interface, Radiant Results - 10/26/2018 1:32 PM CDT EXAM: MRI BRAIN HISTORY: Right temporal lobe abscess. TECHNIQUE: Multiplanar and multisequence MR imaging of the head was performed. This was done both before and after the administration of gadolinium contrast. COMPARISON: MRI head October 20, 2018. CT head and CT internal auditory canal October 20, 2018. FINDINGS: No significant change in size of a T2 hyperintense lesion within the inferior right temporal lobe measuring up to 1.1 cm (series 8 image 6), previously 1.1 cm , with development of complete ring enhancement. Mild surrounding FLAIR hyperintensity has slightly improved with persistent restricted diffusion, however evaluation is limited in this region due to artifact. Unchanged tiny foci of increased DWI and ADC signal within the right centrum semiovale consistent with subacute to chronic lacunar infarct. Several additional FLAIR hyperintense supratentorial white matter lesions are seen in the cerebral white matter, likely age-appropriate. Known areas of tegmen thinning and dehiscence are better demonstrated on prior CT examinations. Slight improvement in abnormal FLAIR hyperintensity layering within the bilateral occipital horns of the lateral ventricles with associated restricted diffusion. Redemonstration of diffuse arachnoid pits with unchanged small right anterior middle cranial fossa/sphenoid wing encephalocele. A nearly empty sella appearance is again noted. Decreased conspicuity of the previously noted thin left posterior cerebral convexity FLAIR hyperintense fluid collection as well as thin dural enhancement along the left temporal and lateral cerebral convexity. The globes and orbits are grossly unremarkable. The vascular flow-voids are unremarkable. No evidence of acute infarct. Improvement in diffuse paranasal sinus mucosal thickening with persistent layering secretions in the bilateral maxillary sinuses demonstrating restricted diffusion. Partially visualized nasogastric tube. There are bilateral mastoid air middle ear effusions. IMPRESSION 1. Evolution of abnormal signal and now complete ring enhancement involving the lesion in the right inferior temporal lobe consistent with abscess. This lesion has not significantly changed in size with slight improvement in surrounding FLAIR hyperintensity likely reflecting localized cerebritis and/or edema. 2. Slight improvement in dependent diffusion restricting material within the lateral ventricles suggesting improving ventriculitis. 3. Decreased conspicuity of a left posterolateral convexity subdural fluid collection likely reflecting improved subdural empyema. 4. Redemonstration of extensive arachnoid pits, partially empty sella appearance, and partially visualized small right sphenoid wing encephalocele which may represent chronic intracranial hypertension. Areas of tegmen thinning and dehiscence are better demonstrated on prior CT internal auditory canal. 5. Improving diffuse paranasal sinusitis with persistent bilateral mastoid and middle ear effusions. Approved by Olvin Estrada M.D. on 10/26/2018 10:00 AM By my electronic signature, I attest that I have personally reviewed the images for this examination and formulated the interpretations and opinions expressed in this report Finalized by RAYMOND ALEJANDRO M.D. on 10/26/2018 1:29 PM. Dictated by Olvin Estrada M.D. on 10/26/2018 8:01 AM. Performing Organization Address [facility] Phone Number RAD RESULTS * POC GLUCOSE (10/25/2018 6:30 AM CDT) Only the most recent of 2 results within the time period is included. Glucose, POC 161 (H) 70 - 100 MG/DL MAIN LAB Performing Organization Address [facility] Phone Number MAIN LAB [address] [place] [address] * AMMONIA (10/25/2018 3:19 AM CDT) Only the most recent of 2 results within the time period is included. Ammonia 50 (H) 9 - 35 MCMOL/L MAIN LAB Specimen Blood Performing Organization Address [facility] Phone Number MAIN LAB [address] [place] [address] * C DIFFICILE BY PCR (10/24/2018 6:30 PM CDT) Battery Name C DIFFICILE PCR MAIN LAB Specimen FECES MAIN LAB Description Special NONE MAIN LAB Requests C. Difficile NEGATIVE-wait 7 days to repeat MAIN LAB Toxin B PCR test Report Status FINAL MAIN LAB 10/25/2018 Specimen Feces Performing Organization Address [facility] Phone Number MAIN LAB [address] [place] [address] * VANCOMYCIN TROUGH (10/24/2018 9:56 AM CDT) Only the most recent of 2 results within the time period is included. Vancomycin 11.8 10.0 - 20.0 MCG/ML MAIN LAB Trough Specimen Blood, venous - Blood Performing Organization Address [facility] Phone Number MAIN LAB [address] [place] [address] * ABDOMEN AP ONLY (10/23/2018 9:27 PM CDT) Only the most recent of 4 results within the time period is included. Impressions Performed At Pyloric or duodenal bulb position of the tip of the enteric tube. RAD RESULTS Finalized by Eddie Galindo M.D. on 10/24/2018 6:36 AM. Dictated by Eddie Galindo M.D. on 10/24/2018 6:35 AM. Narrative Performed At [facility]. [facility] RAD RESULTS Technique: Single portable AP supine view of the abdomen was obtained. Comparison: Comparison is made to an examination of 10/21/2018. Findings: The lower chest and upper abdomen are included in the [id number]. There is generalized cardiomegaly. There are zones of atelectasis in the lower lobes. There is a small left pleural effusion. Changes of prior sternotomy and coronary artery bypass grafting are identified. Endotracheal tube is in place with its tip well above the levon. A venous line has its tip at the level of low SVC. There is limited visualization of the bowel in the upper abdomen. The stomach is not significantly distended. An enteric tube is in place and has its tip in the region of the pylorus or duodenal bulb. Introducing stylette remains within the lumen of the tube. Procedure Note Interface, Radiant Results - 10/24/2018 6:39 AM CDT [facility]. Technique: Single portable AP supine view of the abdomen was obtained. Comparison: Comparison is made to an examination of 10/21/2018. Findings: The lower chest and upper abdomen are included in the [id number]. There is generalized cardiomegaly. There are zones of atelectasis in the lower lobes. There is a small left pleural effusion. Changes of prior sternotomy and coronary artery bypass grafting are identified. Endotracheal tube is in place with its tip well above the levon. A venous line has its tip at the level of low SVC. There is limited visualization of the bowel in the upper abdomen. The stomach is not significantly distended. An enteric tube is in place and has its tip in the region of the pylorus or duodenal bulb. Introducing stylette remains within the lumen of the tube. IMPRESSION Pyloric or duodenal bulb position of the tip of the enteric tube. Finalized by Eddie Galindo M.D. on 10/24/2018 6:36 AM. Dictated by Eddie Galindo M.D. on 10/24/2018 6:35 AM. Performing Organization Address City/State/Zipcode Phone Number [facility] RAD RESULTS * HERPES SIMPLEX PCR - NON-BLOOD (10/23/2018 4:15 PM CDT) Specimen, CSF MAIN LAB Herpes Herpes Simplex HSV 1 and 2 NOT DETECTED HSVND-HSV 1 and 2 MAIN LAB PCR Comment: NOT DETECTED [facility] HSV 1&2 Assay is a qualitative real-time PCR test for the direct detection and differentiation of HSV 1 and 2 DNA. This assay is FDA approved for testing cutaneous or mucocutaneous lesions from symptomatic patients. Performance on modifications of this test as well as other specimen types has been validated by the Department of Pathology and Laboratory Medicine at the [facility]. Specimen Cerebrospinal Fluid Performing Organization Address City[facility] Phone Number MAIN LAB [address] [place] [address] * GRAM STAIN (10/23/2018 4:15 PM CDT) Only the most recent of 3 results within the time period is included. Battery Name GRAM STAIN MAIN LAB Specimen CSF MAIN LAB Description Special NONE MAIN LAB Requests Gram Stain RARE MAIN LAB NEUTROPHILS NO ORGANISMS SEEN Report Status FINAL MAIN LAB 10/23/2018 Specimen Cerebrospinal Fluid Performing Organization Address [facility] Phone Number MAIN LAB [address] [place] [address] * CULTURE-CSF W/SENSITIVITY (10/23/2018 4:15 PM CDT) Battery Name CSF CULTURE MAIN LAB Specimen CSF MAIN LAB Description Special NONE MAIN LAB Requests Direct Gram RARE MAIN LAB Stain NEUTROPHILS NO ORGANISMS SEEN Culture NO GROWTH 3 DAYS [facility] MAIN LAB Report Status FINAL MAIN LAB 10/26/2018 Specimen Cerebrospinal fluid - Cerebrospinal Fluid Performing Organization Address [facility] Phone Number MAIN LAB [address] [place] [address] * CELL COUNT W/DIFF-CSF (10/23/2018 4:15 PM CDT) Cell Count TUBE 4 MAIN LAB Tube,CSF White Blood 23 (H) <5 /UL MAIN LAB Cells,CSF Red Blood 1 /UL MAIN LAB Cells,CSF Neutrophils, 3 % MAIN LAB CSF Lymphocytes, 86 % KU MAIN LAB CSF Monocyte/Hisoto 9 % [facility] MAIN LAB cyte, CSF Other, CSF 2 % [facility] MAIN LAB Clarity,CSF CLEAR MAIN LAB Path CHRONIC INFLAMMATION MAIN LAB Interpretation, CSF Pathologist INTERPRETED BY JOVITA BOOTHE MAIN LAB Signature By the PATH SIGNATURE ABOVE, I attest that I have personally formulated the final interpretation expressed in this report and that the above diagnosis is based upon my examination of the slides and/or other material indicated in this report. Specimen Cerebrospinal fluid - Cerebrospinal Fluid Performing Organization Address City/[facility]/Zipcode Phone Number MAIN LAB [address] [place] [address] * TOTAL PROTEIN-CSF (10/23/2018 4:15 PM CDT) Pathologist [facility] Total 70 (H) 15 - 45 MG/DL MAIN LAB Protein,CSF Specimen Cerebrospinal fluid - Cerebrospinal Fluid Performing Organization Address [facility] Phone Number [facility] [address] [place] [address] * GLUCOSE-CSF (10/23/2018 4:15 PM CDT) [facility] Glucose,CSF 70 40 - 75 MG/DL MAIN LAB Xanthrochromia, NONE MAIN LAB CSF BLOOD PRESENT Specimen Cerebrospinal fluid - Cerebrospinal Fluid Performing Organization Address [facility] Phone Number MAIN LAB [address] [place] [address] * TRANSESOPHAGEAL ECHOCARDIOGRAM (10/23/2018 3:51 PM CDT) Pathologist [facility] Mr max ethan 6.5 m/s OTHER OUTSIDE LAB BSA 1.57 m2 OTHER OUTSIDE LAB CV ECHO PV MARI Doan; Floor RN OTHER OUTSIDE ANALYSIS INTERN LAB Cardiology Siemens [id number] OTHER OUTSIDE Ultrasound LAB Machine ECHO EF 45 % OTHER OUTSIDE LAB Radius 0.5 cm OTHER OUTSIDE LAB AV peak 1.6 m/s OTHER OUTSIDE velocity LAB Vn Nyquist 0.31 m/s OTHER OUTSIDE LAB MR PISA EROA 0.07 cm2 OTHER OUTSIDE LAB Narrative Performed At OTHER OUTSIDE LAB JYOTSNA: 1. There is a small echogenic mass on the coaptation line of the aortic valve. Appears to likely be associated with the left coronary cusp. A vegetation cannot be ruled out. 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 No stenosis. No regurgitation. 2. Moderate MR secondary to anterior leaflet (A2 scallop) prolapse 3. Mild TR 4. There was no thrombus visualized in the left atrial appendage utilizing multiple views and color flow Doppler 5. Patent foramen ovale present with persistent left to right shunting demonstrated by color and pulse wave Doppler. Bubble studies failed to show any evidence of right to left shunt. 6. Normal left ventricle size with moderately reduced systolic function, EF ~ 40-45%, poor endocardial definition 7. Normal right ventricle size and qualitative function 8. Mild LA enlargement.Lipomatous hypertrophy of the interatrial septum is present. 9. Mild plaquing in the descending and transverse thoracic aorta 10. No pericardial effusion Compared with the prior TTE study on 10-20-2018, there has been no significant interval changes. This study was read in conjunction with java developer consultant, Dr. Don Dominguez.I have personally reviewed the study and co-formulated the interpretation expressed in this report. Performing Organization Address City/[facility]/Zipcode Phone Number OTHER OUTSIDE LAB * CULTURE-BLOOD W/SENSITIVITY (10/22/2018 12:36 PM CDT) Only the most recent of 4 results within the time period is included. Battery Name BLOOD CULTURE MAIN LAB Specimen BLOOD MAIN LAB Description RIGHT ANTECUBITAL Special aerobic bottle only [facility] Requests Culture performed on specimen with less than the recommended volume of 10 ml/bottle. Decreased volume will affect sensitivity of culture. Culture NO GROWTH 5 DAYS MAIN LAB Report Status FINAL [facility] LAB 10/28/2018 Specimen Blood Performing Organization Address [facility] Phone Number [facility] [address] [place] [address] * SODIUM (10/21/2018 1:35 PM CDT) Sodium 149 (H) 137 - 147 MMOL/L MAIN LAB Specimen Blood Performing Organization Address [facility] Phone Number [facility] [address] [place] [address] * RVP VIRAL PANEL PCR (10/20/2018 11:05 PM REPERTOIRE MANAGER) Specimen Source NASOPHARYNGEAL SWAB [facility] This assay uses analyte specific reagents and has not been cleared by the [place] Food and Drug Administration.The performance characteristics were determined by the [facility]. Adenovirus NOT DETECTED MAIN LAB Coronavirus NOT DETECTED MAIN LAB 229E Coronavirus NOT DETECTED [facility] HKU1 Coronavirus NOT DETECTED [facility] NL63 Coronavirus NOT DETECTED [facility] OC43 Human NOT DETECTED [facility] Metapneumovirus Human NOT DETECTED KU MAIN LAB Rhinovirus/ENTE ROVIRUS Influenza A NOT DETECTED KU MAIN LAB H1N1 2009 Influenza A H1 NOT DETECTED KU MAIN LAB Influenza A H3 DETECTED KU MAIN LAB Influenza B NOT DETECTED KU MAIN LAB Parainfluenza 1 NOT DETECTED KU MAIN LAB Parainfluenza 2 NOT DETECTED KU MAIN LAB Parainfluenza 3 NOT DETECTED KU MAIN LAB Parainfluenza 4 NOT DETECTED KU MAIN LAB RSV NOT DETECTED KU MAIN LAB Bordetella NOT DETECTED KU MAIN LAB Pertussis Chlamydophila NOT DETECTED KU MAIN LAB Pneumoniae Mycoplasma NOT DETECTED KU MAIN LAB Pneumoniae Specimen Nasopharyngeal Swab Performing Organization Address City/State/Zipcode Phone Number KU MAIN LAB [address] [place] [address] * CT LOWER EXTREM W CONT BILAT (10/20/2018 1:56 PM REPERTOIRE MANAGER) Impressions Performed At 1. Mild soft tissue stranding within the subcutaneous fat at the sites of the [facility] RAD RESULTS saphenous vein harvest. This may reflect cellulitis. There is no evidence of an abscess or soft tissue emphysema. 2. Free fluid in the dependent portion of the pelvis. Finalized by Raleigh Cross M.D. on 10/22/2018 8:34 AM. Dictated by Raleigh Cross M.D. on 10/22/2018 8:04 AM. Narrative Performed At CT bilateral lower extremities K[facility] RAD RESULTS CLINICAL DATA: Poor wound healing of the legs, status post harvest site for CABG TECHNIQUE: Following the intravenous administration of 100 mL of Omnipaque 350 contrast material images through the lower extremities were acquired. Post process coronal and sagittal reformatted images were included in the study. FINDINGS: There is mild soft tissue stranding involving medial aspects of both thighs and medial aspects of both calves. This corresponds to the site of saphenous vein harvest. There is no evidence of a discrete abscess. There is no evidence of soft tissue emphysema. Skeletal muscles appear symmetric. Density of the skeletal muscles appears unremarkable. The major arteries of the lower extremities are opacified. There is opacification of the anterior and posterior tibial arteries at the level the ankles bilaterally. Mild degenerative changes are present involving both hips and knees. There is no evidence of a knee joint effusion. A Salomon catheter is in place. Free intraperitoneal fluid is identified within the dependent portion of the pelvis. Several small lymph nodes are identified in the inguinal regions bilaterally. Procedure Note Interface, Radiant Results - 10/22/2018 8:[address] bilateral lower extremities CLINICAL DATA: Poor wound healing of the legs, status post harvest site for CABG TECHNIQUE: Following the intravenous administration of 100 mL of Omnipaque 350 contrast material images through the lower extremities were acquired. Post process coronal and sagittal reformatted images were included in the study. FINDINGS: There is mild soft tissue stranding involving medial aspects of both thighs and medial aspects of both calves. This corresponds to the site of saphenous vein harvest. There is no evidence of a discrete abscess. There is no evidence of soft tissue emphysema. Skeletal muscles appear symmetric. Density of the skeletal muscles appears unremarkable. The major arteries of the lower extremities are opacified. There is opacification of the anterior and posterior tibial arteries at the level the ankles bilaterally. Mild degenerative changes are present involving both hips and knees. There is no evidence of a knee joint effusion. A Salomon catheter is in place. Free intraperitoneal fluid is identified within the dependent portion of the pelvis. Several small lymph nodes are identified in the inguinal regions bilaterally. IMPRESSION 1. Mild soft tissue stranding within the subcutaneous fat at the sites of the saphenous vein harvest. This may reflect cellulitis. There is no evidence of an abscess or soft tissue emphysema. 2. Free fluid in the dependent portion of the pelvis. Finalized by Raleigh Cross M.D. on 10/22/2018 8:34 AM. Dictated by Raleigh Cross M.D. on 10/22/2018 8:04 AM. Performing Organization Address City/State/Zipcode Phone Number K[facility] RAD RESULTS * CT INT AUD CANAL WO CONTRAST (10/20/2018 1:50 PM REPERTOIRE MANAGER) Impressions Performed At 1.Extensive thinning and numerous areas of probable dehiscence of the right K[facility] RAD RESULTS tegmen tympani and tegmen mastoideum including immediately below the focal hypodensity in the right inferior temporal lobe. 2.Complete opacification of the right middle ear, partial opacification of the right mastoid air cells, and opacification of the right petrous apex air cells which may partially related to CSF leak. A passive or infectious effusion could appear similar, however, there is no obvious bony destruction or inflammatory changes in the superficial scalp soft tissues. 3.Slight irregularity of the body and short process of the right incus which may represent mild tympanosclerosis. 4.Numerous areas of thinning or possible dehiscence of the left tegmen tympani and tegmen mastoideum although slightly less impressive than the right temporal bone. 5.Partial opacification of the left middle ear cavity and mastoid air cells without bony destruction or superficial inflammatory change. 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 7.Near complete opacification of the paranasal sinuses with air-fluid levels. 8.Please see same-day MRI for description of intracranial abnormalities. Finalized by RAYMOND ALEJANDRO M.D. on 10/21/2018 7:47 AM. Dictated by RAYMOND ALEJANDRO M.D. on 10/21/2018 7:21 AM. Narrative Performed At CT TEMPORAL BONES WITHOUT CONTRAST [facility] RAD RESULTS HISTORY: 58 years old Female, head trauma. TECHNIQUE: CT images of the temporal bones were acquired without contrast. COMPARISON: CT head from earlier the same day. FINDINGS: RIGHT External Auditory Canal: Patent. Tympanic Membrane: Intact. Mastoid Air Cells: Well-formed and near completely opacified. No bony destruction. Multiple areas of thinning or possible dehiscence of the tegmen mastoideum. No superficial soft tissue inflammatory changes are identified surrounding the mastoid portion of the temporal bone. Middle Ear Cavity: Complete opacification within the epitympanum, mesotympanum , or hypotympanum. Numerous areas of irregularity and probable dehiscence of the tegmen tympani. Ossicles: Normal alignment. Possible subtle irregularities of the body and short process of the incus. Labyrinthine Structures: Cochlea, vestibule, and semicircular canals have normal morphology. The oval window and round window are patent. The cochlear aperture is patent. No semicircular canal dehiscence. Otic Capsule: Normal mineralization. Vestibular Aqueduct: Normal size. Facial Nerve: The fallopian canal has normal course and appearance. Internal Auditory Canal: Normal size. Vascular: The sigmoid plate is intact. The petrous carotid canal has a normal course. Petrous apex: Near complete opacification of pneumatized petrous apex with thinning and irregularity of the roof of the petrous apex. LEFT External Auditory Canal: Patent. Tympanic Membrane: Intact. Mastoid Air Cells: Well-formed and demonstrate patchy opacification. No bony destruction. Numerous areas of bony thinning or possible dehiscence of the tegmen mastoideum.. No superficial soft tissue inflammatory changes are identified surrounding the mastoid portion of the temporal bone. Middle Ear Cavity: Partial opacification within the epitympanum, mesotympanum , or hypotympanum. Probable thinning of the tegmen tympani. The scutum is well formed. Ossicles: Normal alignment. No erosions. Labyrinthine Structures: Cochlea, vestibule, and semicircular canals have normal morphology. The oval window and round window are patent. The cochlear aperture is patent. No semicircular canal dehiscence. Otic Capsule: Normal mineralization. Vestibular Aqueduct: Normal size. Facial Nerve: The fallopian canal has normal course and appearance. Internal Auditory Canal: Normal size. Vascular: The sigmoid plate is intact. The petrous carotid canal has a normal course. OTHER: Extensive bilateral middle cranial fossa arachnoid pits. Right sphenoid wing cephalocele is better identified on same day MRI. Thinning of the left lateral sphenoid sinus wall without definite cephalocele. Focal right inferior temporal lobe hypodensity is redemonstrated. Extensive paranasal sinus mucosal thickening and air-fluid levels. Procedure Note Interface, Radiant Results - 10/21/2018 7:[address] TEMPORAL BONES WITHOUT CONTRAST HISTORY: 58 years old Female, head trauma. TECHNIQUE: CT images of the temporal bones were acquired without contrast. COMPARISON: CT head from earlier the same day. FINDINGS: RIGHT External Auditory Canal: Patent. Tympanic Membrane: Intact. Mastoid Air Cells: Well-formed and near completely opacified. No bony destruction. Multiple areas of thinning or possible dehiscence of the tegmen mastoideum. No superficial soft tissue inflammatory changes are identified surrounding the mastoid portion of the temporal bone. Middle Ear Cavity: Complete opacification within the epitympanum, mesotympanum, or hypotympanum. Numerous areas of irregularity and probable dehiscence of the tegmen tympani. Ossicles: Normal alignment. Possible subtle irregularities of the body and short process of the incus. Labyrinthine Structures: Cochlea, vestibule, and semicircular canals have normal morphology. The oval window and round window are patent. The cochlear aperture is patent. No semicircular canal dehiscence. Otic Capsule: Normal mineralization. Vestibular Aqueduct: Normal size. Facial Nerve: The fallopian canal has normal course and appearance. Internal Auditory Canal: Normal size. Vascular: The sigmoid plate is intact. The petrous carotid canal has a normal course. Petrous apex: Near complete opacification of pneumatized petrous apex with thinning and irregularity of the roof of the petrous apex. LEFT External Auditory Canal: Patent. Tympanic Membrane: Intact. Mastoid Air Cells: Well-formed and demonstrate patchy opacification. No bony destruction. Numerous areas of bony thinning or possible dehiscence of the tegmen mastoideum.. No superficial soft tissue inflammatory changes are identified surrounding the mastoid portion of the temporal bone. Middle Ear Cavity: Partial opacification within the epitympanum, mesotympanum, or hypotympanum. Probable thinning of the tegmen tympani. The scutum is well formed. Ossicles: Normal alignment. No erosions. Labyrinthine Structures: Cochlea, vestibule, and semicircular canals have normal morphology. The oval window and round window are patent. The cochlear aperture is patent. No semicircular canal dehiscence. Otic Capsule: Normal mineralization. Vestibular Aqueduct: Normal size. Facial Nerve: The fallopian canal has normal course and appearance. Internal Auditory Canal: Normal size. Vascular: The sigmoid plate is intact. The petrous carotid canal has a normal course. OTHER: Extensive bilateral middle cranial fossa arachnoid pits. Right sphenoid wing cephalocele is better identified on same day MRI. Thinning of the left lateral sphenoid sinus wall without definite cephalocele. Focal right inferior temporal lobe hypodensity is redemonstrated. Extensive paranasal sinus mucosal thickening and air-fluid levels. IMPRESSION 1. Extensive thinning and numerous areas of probable dehiscence of the right tegmen tympani and tegmen mastoideum including immediately below the focal hypodensity in the right inferior temporal lobe. 2. Complete opacification of the right middle ear, partial opacification of the right mastoid air cells, and opacification of the right petrous apex air cells which may partially related to CSF leak. A passive or infectious effusion could appear similar, however, there is no obvious bony destruction or inflammatory changes in the superficial scalp soft tissues. 3. Slight irregularity of the body and short process of the right incus which may represent mild tympanosclerosis. 4. Numerous areas of thinning or possible dehiscence of the left tegmen tympani and tegmen mastoideum although slightly less impressive than the right temporal bone. 5. Partial opacification of the left middle ear cavity and mastoid air cells without bony destruction or superficial inflammatory change. 6. 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 7. Near complete opacification of the paranasal sinuses with air-fluid levels. 8. Please see same-day MRI for description of intracranial abnormalities. Finalized by RAYMOND ALEJANDRO M.D. on 10/21/2018 7:47 AM. Dictated by RAYMOND ALEJANDRO M.D. on 10/21/2018 7:21 AM. Performing Organization Address City/State/Zipcode Phone Number RAD RESULTS * ACETAMINOPHEN LEVEL (10/20/2018 11:17 AM REPERTOIRE MANAGER) [facility] Acetaminophen <10.0 <20.1 MCG/ML MAIN LAB Specimen Blood Performing Organization Address City/[facility]/Zipcode Phone Number MAIN LAB [address] [place], [place] [id number] * 2-D + DOPPLER ECHOCARDIOGRAM (10/20/2018 10:08 AM REPERTOIRE MANAGER) [facility] IVS 0.76 0.6 - 0.9 cm OTHER OUTSIDE LAB LVIDD 3.98 3.8 - 5.2 cm OTHER OUTSIDE LAB LVIDS 3.10 2.2 - 3.5 cm OTHER OUTSIDE LAB PW 0.90 0.6 - 0.9 cm OTHER OUTSIDE LAB Right 1.81 1.9 - 3.5 cm OTHER OUTSIDE Ventricular Mid LAB Diameter LA size 3.69 2.7 - 3.8 cm OTHER OUTSIDE LAB LA volume 51.93 22 - 52 mL OTHER OUTSIDE LAB Right Atrial 13.53 <18 cm2 OTHER OUTSIDE Area LAB Right Atrial 4.68 2.2 - 2.8 cm OTHER OUTSIDE Major Dimension LAB and a peak 9.75 mmHg OTHER OUTSIDE gradient of LAB AV peak 1.56 m/s OTHER OUTSIDE velocity LAB Radius 0.44 cm OTHER OUTSIDE LAB Mr max ethan 5.74 m/s OTHER OUTSIDE LAB MV Peak A Ethan 1.23 m/s OTHER OUTSIDE LAB Right 2.75 2.5 - 4.1 cm OTHER OUTSIDE Ventricular LAB Basal Diameter Right Heart 1.44 >1.7 cm OTHER OUTSIDE Systolic Mmode LAB TAPSE Sinus 2.26 2.4 - 3.6 cm OTHER OUTSIDE LAB BSA 1.56 m2 OTHER OUTSIDE LAB FS 22.11 28 - 44 % OTHER OUTSIDE LAB EF 37.59 % OTHER OUTSIDE LAB LV mass 97.41 66 - 150 g OTHER OUTSIDE LAB RWT 0.45 <=0.42 OTHER OUTSIDE LAB Vn Nyquist 0.34 m/s OTHER OUTSIDE LAB TV rest 33 mmHg OTHER OUTSIDE pulmonary LAB artery pressure Right Heart 0.096 m/s OTHER OUTSIDE Systolic TDI S' LAB MR ELVIA TORRES 0.07 cm2 OTHER OUTSIDE LAB Left Atrium 33.29 16 - 34 OTHER OUTSIDE Index LAB Cardiology Siemens [id number] OTHER OUTSIDE Ultrasound LAB Machine Left Ventricle 62.44 44 - 88 g/m2 OTHER OUTSIDE Mass Index LAB ECHO EF 40 % OTHER OUTSIDE LAB Narrative Performed At OTHER OUTSIDE LAB LVEF=35-40% With Mid To Distal Anteroapical Severe Hypokinesis To Akinesis. Lovimfnzmtb=853-358 bpm Normal LV Wall Thickness Normal Chamber Dimensions Anterior Mitral Valve Borderline Prolapse No Vegetations Moderate Eccentric Posterior Lateral Jet Mitral Valve Regurgitation No Pericardial Effusion PASP=33mmHg Performing Organization Address City/State/Zipcode Phone Number OTHER OUTSIDE LAB * CULTURE-WOUND/TISSUE/FLUID(AEROBIC ONLY)W/SENSITIVITY (10/20/2018 1:28 AM REPERTOIRE MANAGER ) Battery Name ROUTINE CULTURE MAIN LAB Specimen SWAB MAIN LAB Description WOUND LEFT LEG Special NONE MAIN LAB Requests Direct Gram NO NEUTROPHILS SEEN MAIN LAB Stain NO ORGANISMS SEEN Culture Four Colonies MAIN LAB PSEUDOMONAS AERUGINOSA (A) Report Status FINAL MAIN LAB 10/25/2018 Organism ID Four Colonies MAIN LAB PSEUDOMONAS AERUGINOSA Organism ID Four Colonies MAIN LAB PSEUDOMONAS AERUGINOSA Specimen Swab Antibiotic Method Susceptibility Organism Amikacin MARCY (MCG/ML) INTERPRETATION <=8 SUSCEPTIBLE: Susceptible Four colonies pseudomonas aeruginosa Cefepime MARCY (MCG/ML) INTERPRETATION 2 SUSCEPTIBLE: Susceptible Four colonies pseudomonas aeruginosa Ceftazidime MARCY (MCG/ML) INTERPRETATION >16 RESISTANT: Resistant Four colonies pseudomonas aeruginosa Gentamicin MARCY (MCG/ML) INTERPRETATION <=2 SUSCEPTIBLE: Susceptible Four colonies pseudomonas aeruginosa Levofloxacin MARCY (MCG/ML) INTERPRETATION 4 INTERMEDIATE: Intermediate Four colonies pseudomonas aeruginosa Meropenem MARCY (MCG/ML) INTERPRETATION >8 RESISTANT: Resistant Four colonies pseudomonas aeruginosa Piperacil/Tazobactam MARCY (MCG/ML) INTERPRETATION >64/4 RESISTANT: Resistant Four colonies pseudomonas aeruginosa Tobramycin MARCY (MCG/ML) INTERPRETATION <=2 SUSCEPTIBLE: Susceptible Four colonies pseudomonas aeruginosa Aztreonam MARCY (MCG/ML) INTERPRETATION 8 SUSCEPTIBLE: Susceptible Four colonies pseudomonas aeruginosa Method MARCY (MCG/ML) INTERPRETATION MARCY (MCG/ML) INTERPRETATION Four colonies pseudomonas aeruginosa Ceftazidime/Avibactam (Avycaz) BRADSHAW BETTS SUSCEPTIBLE: Susceptible Four colonies pseudomonas aeruginosa Ceftolozane/Tazobactam (Zerbaxa) BRADSHAW BETTS SUSCEPTIBLE: Susceptible Four colonies pseudomonas aeruginosa Method BRADSHAW BETTS BRADSHAW BETTS Four colonies pseudomonas aeruginosa Performing Organization Address [facility] Phone Number [facility] [address] [place] [address] * CULTURE-RESP,LOWER W/SENSITIVITY (10/20/2018 1:07 AM REPERTOIRE MANAGER) Battery Name LOWER RESP CULTURE [facility] Specimen TRACHEAL ASPIRATE [facility] Description Special NONE [facility] Requests Direct Gram LESS THAN 10/LPF [facility] Stain NEUTROPHILS LESS THAN 10/LPF SQUAMOUS EPITHELIAL CELLS NO ORGANISMS SEEN Culture Moderate growth [facility] NO SIGNIFICANT CHELSEY Report Status FINAL [facility] 10/22/2018 Specimen Tracheal Aspirate Performing Organization Address [facility] Phone Number [facility] [address] [place] [address] * CT HEAD WO CONTRAST (10/20/2018 12:45 AM REPERTOIRE MANAGER) Impressions Performed At 1.Right inferior temporal lobe parenchymal edema with adjacent intracranial [facility] RESULTS gas and bony irregularity of the tegmen mastoideum and tegmen tympani 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 Evaluation of the osseous structures limited by technique and mild patient motion. CT of the temporal bones as well as skull base MRI would offer more detailed characterization of these areas. 2.Extensive bilateral sphenoid wing arachnoid pits without definite skull base dehiscence. The arachnoid pits and an empty sella turcica can be seen in intracranial hypertension. 3.Symmetric although irregular hypodensity areas overlying the sclera of both globes which may represent ocular medical devices or scleral calcifications. Finalized by RAYMOND ALEJANDRO M.D. on 10/20/2018 7:56 AM. Dictated by RAYMOND ALEJANDRO M.D. on 10/20/2018 7:49 AM. Narrative Performed At CT HEAD WITHOUT CONTRAST [facility] RESULTS HISTORY: 58 years old Female, intraparenchymal air TECHNIQUE: CT images of the head were acquired without intravenous contrast. COMPARISON: Outside CTA from one day prior. FINDINGS: BRAIN PARENCHYMA: There is focal hypodensities in loss of victoria-white differentiation within the right inferior temporal lobe adjacent to a small punctate area of intraparenchymal air (series 307B image 55). There is thinning and irregularity of the adjacent tegmen mastoideum and tegmen tympani with right middle ear and mastoid effusion. Bony detail is limited by technique and mild patient motion. Small right rowley radiata white matter hypodensity. No mass effect or midline shift. No intracranial hemorrhage. VENTRICLES/EXTRA-AXIAL SPACES: No hydrocephalus or extra-axial fluid collections. EXTRACRANIAL STRUCTURES: Extensive arachnoid pits within the bilateral sphenoid wings with the aforementioned bony thinning and irregularity over the roof of the right temporal bone. Diffuse paranasal sinus opacification with air-fluid levels in the sphenoid sinuses and mastoid air cells. High-density structures over both globes. Procedure Note Interface, Radiant Results - 10/20/2018 8:[address] HEAD WITHOUT CONTRAST HISTORY: 58 years old Female, intraparenchymal air TECHNIQUE: CT images of the head were acquired without intravenous contrast. COMPARISON: Outside CTA from one day prior. FINDINGS: BRAIN PARENCHYMA: There is focal hypodensities in loss of victoria-white differentiation within the right inferior temporal lobe adjacent to a small punctate area of intraparenchymal air (series 307B image 55). There is thinning and irregularity of the adjacent tegmen mastoideum and tegmen tympani with right middle ear and mastoid effusion. Bony detail is limited by technique and mild patient motion. Small right rowley radiata white matter hypodensity. No mass effect or midline shift. No intracranial hemorrhage. VENTRICLES/EXTRA-AXIAL SPACES: No hydrocephalus or extra-axial fluid collections. EXTRACRANIAL STRUCTURES: Extensive arachnoid pits within the bilateral sphenoid wings with the aforementioned bony thinning and irregularity over the roof of the right temporal bone. Diffuse paranasal sinus opacification with air-fluid levels in the sphenoid sinuses and mastoid air cells. High-density structures over both globes. IMPRESSION 1. 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 Evaluation of the osseous structures limited by technique and mild patient motion. CT of the temporal bones as well as skull base MRI would offer more detailed characterization of these areas. 2. Extensive bilateral sphenoid wing arachnoid pits without definite skull base dehiscence. The arachnoid pits and an empty sella turcica can be seen in intracranial hypertension. 3. Symmetric although irregular hypodensity areas overlying the sclera of both globes which may represent ocular medical devices or scleral calcifications. Finalized by RAYMOND ALEJANDRO M.D. on 10/20/2018 7:56 AM. Dictated by RAYMOND ALEJANDRO M.D. on 10/20/2018 7:49 AM. Performing Organization Address [facility] Phone Number [facility] RESULTS * PHENCYCLIDINES-URINE RANDOM (10/19/2018 11:36 PM REPERTOIRE MANAGER) Phencyclidine NEG NEG-NEG MAIN LAB (PCP) Comment: RESULTS WERE OBTAINED BY IMMUNOASSAY AND ARE PRESUMPTIVE ONLY. POSITIVE INDICATES THE PRESENCE OF SUBSTANCE WITH CHARACTERISTICS SIMILAR TO DRUG-DRUG CLASS OR METABOLITE IN CONC. EQUAL TO OR EXCEEDING VALUES LISTED. PHENCYCLIDINE (PCP)25 NG/ML Specimen Urine - Urine Performing Organization Address [facility] Phone Number MAIN LAB [address] [place] [address] * OPIATES-URINE RANDOM (10/19/2018 11:36 PM REPERTOIRE MANAGER) Opiates-Urine NEG NEG-NEG MAIN LAB Comment: RESULTS WERE OBTAINED BY IMMUNOASSAY AND ARE PRESUMPTIVE ONLY. POSITIVE INDICATES THE PRESENCE OF SUBSTANCE WITH CHARACTERISTICS SIMILAR TO DRUG-DRUG CLASS OR METABOLITE IN CONC. EQUAL TO OR EXCEEDING VALUES LISTED. OPIATES 2000 NG/ML Specimen Urine - Urine Performing Organization Address [facility] Phone Number MAIN LAB [address] [place] [address] * COCAINE-URINE RANDOM (10/19/2018 11:36 PM REPERTOIRE MANAGER) Cocaine-Urine NEG NEG-NEG MAIN LAB Comment: RESULTS WERE OBTAINED BY IMMUNOASSAY AND ARE PRESUMPTIVE ONLY. POSITIVE INDICATES THE PRESENCE OF SUBSTANCE WITH CHARACTERISTICS SIMILAR TO DRUG-DRUG CLASS OR METABOLITE IN CONC. EQUAL TO OR EXCEEDING VALUES LISTED. COCAINE 300 NG/ML Specimen Urine - Urine Performing Organization Address [facility] Phone Number [employer] MAIN LAB [address] [place] [address] * CANNABINOIDS-URINE RANDOM (10/19/2018 11:36 PM REPERTOIRE MANAGER) THC NEG NEG-NEG [facility] Comment: RESULTS WERE OBTAINED BY IMMUNOASSAY AND ARE PRESUMPTIVE ONLY. POSITIVE INDICATES THE PRESENCE OF SUBSTANCE WITH CHARACTERISTICS SIMILAR TO DRUG-DRUG CLASS OR METABOLITE IN CONC. EQUAL TO OR EXCEEDING VALUES LISTED. CANNABINOIDS 50 NG/ML Specimen Urine - Urine Performing Organization Address [facility] Phone Number [facility] [address] [place] [address] * BENZODIAZEPINES-URINE RANDOM (10/19/2018 11:36 PM REPERTOIRE MANAGER) Benzodiazepines POS (A) NEG-NEG [facility] Comment: RESULTS WERE OBTAINED BY IMMUNOASSAY AND ARE PRESUMPTIVE ONLY. POSITIVE INDICATES THE PRESENCE OF SUBSTANCE WITH CHARACTERISTICS SIMILAR TO DRUG-DRUG CLASS OR METABOLITE IN CONC. EQUAL TO OR EXCEEDING VALUES LISTED. BENZODIAZEPINES 200 NG/ML Specimen Urine - Urine Performing Organization Address [facility] Phone Number [facility] [address] [place] [address] * BARBITURATES-URINE RANDOM (10/19/2018 11:36 PM REPERTOIRE MANAGER) Barbiturates,Ur POS (A) NEG-NEG [facility] ine Comment: RESULTS WERE OBTAINED BY IMMUNOASSAY AND ARE PRESUMPTIVE ONLY. POSITIVE INDICATES THE PRESENCE OF SUBSTANCE WITH CHARACTERISTICS SIMILAR TO DRUG-DRUG CLASS OR METABOLITE IN CONC. EQUAL TO OR EXCEEDING VALUES LISTED. BARBITURATES 200 NG/ML Specimen Urine - Urine Performing Organization Address [facility] Phone Number [facility] [address] [place] [address] * AMPHETAMINES-URINE RANDOM (10/19/2018 11:36 PM REPERTOIRE MANAGER) Amphetamines NEG NEG-NEG [facility] Comment: RESULTS WERE OBTAINED BY IMMUNOASSAY AND ARE PRESUMPTIVE ONLY. POSITIVE INDICATES THE PRESENCE OF SUBSTANCE WITH CHARACTERISTICS SIMILAR TO DRUG-DRUG CLASS OR METABOLITE IN CONC. EQUAL TO OR EXCEEDING VALUES LISTED. AMPHETAMINES 1000 NG/ML Specimen Urine - Urine Performing Organization Address [facility] Phone Number [facility] [address] [place] [address] * PROTIME INR (PT) (10/19/2018 11:36 PM REPERTOIRE MANAGER) INR 1.0 0.8 - 1.2 [facility] Specimen Blood Performing Organization Address [facility]/Zipcode Phone Number MAIN LAB [address] [place] [address] * LACTIC ACID(LACTATE) (10/19/2018 11:36 PM REPERTOIRE MANAGER) Lactic Acid 0.9 0.5 - 2.0 MMOL/L [facility] Specimen Blood Performing Organization Address [facility] Phone Number MA[facility] LAB [address] [place] [address] * COMPREHENSIVE METABOLIC PANEL (10/19/2018 11:36 PM REPERTOIRE MANAGER) Sodium 144 137 - 147 MMOL/L [facility] Potassium 3.2 (L) 3.5 - 5.1 MMOL/L [facility] Chloride 110 98 - 110 MMOL/L [facility] Glucose 105 (H) 70 - 100 MG/DL [facility] Blood Urea 13 7 - 25 MG/DL [facility] Nitrogen Creatinine 0.51 0.4 - 1.00 MG/DL [facility] Calcium 8.6 8.5 - 10.6 MG/DL [facility] Total Protein 5.4 (L) 6.0 - 8.0 G/DL [facility] Total Bilirubin 0.3 0.3 - 1.2 MG/DL [facility] Albumin 2.6 (L) 3.5 - 5.0 G/DL [facility] Alk Phosphatase 30 25 - 110 U/L [facility] AST (SGOT) 20 7 - 40 U/L [facility] CO2 28 21 - 30 MMOL/L [facility] ALT (SGPT) 6 (L) 7 - 56 U/L [facility] Anion Gap 6 3 - 12 [facility] eGFR Non >60 >60 mL/min [facility] Comment: [place] The eGFR is not validated for use in drug dosing adjustments.Continue to use estimated creatinine clearance per dosing reference text.Please contact the Clinical Pharmacist for questions. eGFR >60 >60 mL/min [facility] [place] Comment: The eGFR is not validated for use in drug dosing adjustments.Continue to use estimated creatinine clearance per dosing reference text.Please contact the Clinical Pharmacist for questions. Specimen Blood Performing Organization Address [facility]/Zipcode Phone Number MAIN LAB [address] [place] [address] * GENERAL RAD CHEST EXTERNAL IMAGING (10/19/2018 6:39 PM REPERTOIRE MANAGER) Only the most recent of 5 results within the time period is included. Narrative Performed At This order has been auto finalized and does not contain a result. * CTA HEAD EXTERNAL IMAGING (10/19/2018 6:38 PM REPERTOIRE MANAGER) Narrative Performed At This order has been auto finalized and does not contain a result. * TELEMETRY STRIPS-SCAN (10/19/2018 12:00 AM REPERTOIRE MANAGER) Narrative Performed At Ordered by an unspecified provider. * ECG-SCAN (10/19/2018 12:00 AM REPERTOIRE MANAGER) Narrative Performed At Ordered by an unspecified provider. * GENERAL RAD ABDOMEN EXTERNAL IMAGING (10/16/2018 12:30 AM REPERTOIRE MANAGER) Narrative Performed At This order has been auto finalized and does not contain a result. * CT CHEST EXTERNAL IMAGING (10/16/2018 12:00 AM REPERTOIRE MANAGER) Narrative Performed At This order has been auto finalized and does not contain a result. from Last 3 Months Insurance Type Payer Benefit Subscriber ID Effective Phone Address Plan / Dates Group PPO BCBS [place] BCBS [place] xxxxxxxxxxxx [id number] [facility] resent BLUE Advance Directives Patient has advance care planning documents, and code status on file. For more information, please contact: [facility] [address] [place] [address] Date Inactivated Comments Code Status Date Activated 11/03/2018 4:22 PM Full Code 10/19/2018 11:19 PM Provider has discussed Code Status No, more discussion w/Patient or Family? needed
--- OUTSIDE RECORDS SUMMARY | 2018-12-02 20:02 | XMS REPORT | Encounter Summary ---
Author Author [facility] Organization [facility] Address Unknown Phone Unavailable Care Team Providers Care Machine Stone Polisher Apprentice Name Role Phone Tamia Fonseca MD PCP Reason for Referral * Radiology Services (Routine) Referred By Contact Referred To Contact Status Reason Specialty Diagnoses / Procedures Ty Sanchez MD [address] Ortho[facility] [address]vl [address] [place] [address] New Request Radiology Diagnoses Abscess of brain P rocedures MRI HEAD WO/W CONTRAST Encounter Details Care Team Description Date Type Department Ty Sanchez MD [address] [facility] [address] [place], [place] [id number] Abscess of brain (Primary Dx) 11/20/2018 Orders Only [facility] [address] [place] [address] Social History Date Tobacco Use Types Packs/Day [...] Travel Start No recent travel history available. 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
--- OUTSIDE RECORDS SUMMARY | 2018-12-02 20:02 | XMS REPORT | Encounter Summary ---
Author Author [facility] Organization [facility] Address Unknown Phone Unavailable Care Team Providers Care Furniture Finisher Name Role Phone Tamia Fonseca MD PCP Reason for Visit * Reason Comments Outpatient Antibiotic Therapy (Opat) Encounter Details Care Team Description Date Type Department Gerri Castro MD [address] [facility] Orth[facility] Pav[facility] [address] [place] [id number] Outpatient Antibiotic Therapy (Opat) 11/05/2018 [address]phone [facility] [address] [place] [address] Social History Date Tobacco Use [...] impairment: No documented as of this encounter Miscellaneous Notes * Telephone Encounter - Stephy Ndaiye RN - 11/05/2018 11:24 AM CDT Infectious Diseases reconciliation note from [facility] discharge on 11/03/[address] Castro, 1. 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 This would continue until at least 11/12. 2. Confirmed w/ Estefania at [facility] that pt will be followed by Dr Lopez 3. Faxed ID Consult, progress note, and microsummary 4. Asked to have them contact [facility] if they need to have the pt followed after discharge from facility documented in this encounter Plan of Treatment Not on filedocumented as of this encounter Visit Diagnoses Not on filedocumented in this encounter
--- OUTSIDE RECORDS SUMMARY | 2018-12-02 20:02 | XMS REPORT | Encounter Summary ---
Author Author [facility] Organization [facility] Address Unknown Phone Unavailable Care Team Providers Care Supervisor Farm Equipment Maintenance Name Role Phone Tamia Fonseca MD PCP Reason for Visit * Reason Comments Other Encounter Details Care Team Description Date Type Department Sarath Paris MD [address] Ortho[facility]Med Pavilion Lvl [address] [place] [address] Other 11/27/2018 Telephone The [facility] [address] [place] [address] Social History Date Tobacco Use Types Packs/Day [...] encounter Miscellaneous Notes * Telephone Encounter - Shira Henderson BSN - 11/29/2018 10:13 AM CDT This RN reached back out to pt to let her know that she will need to follow up with her primary service (neurology) related to an approval letter for removal of her feeding tube. Dr. Paris did not put in the feeding tube, he only did her ear surgery. Pt verbalized understanding and neurology clinic phone number was given to pt. * Telephone Encounter - Shira Henderson BSN - 11/27/2018 4:05 PM CDT This RN will reach out to Dr. Paris and f/u with patient once more information is obtained. * Telephone Encounter - Autumn Ness - 11/27/2018 1:38 PM CDT Pt needs Dr. Paris's permission to get a feeding tube removed in [place], [place] at [facility], Dr. Paris placed the tube 10/29. documented in this encounter Plan of Treatment Not on filedocumented as of this encounter Visit Diagnoses Not on filedocumented in this encounter
--- OUTSIDE RECORDS SUMMARY | 2018-12-02 20:07 | XMS REPORT | Encounter Summary ---
Author Author [facility] Organization [facility] Address Unknown Phone Unavailable Care Team Providers Care Straight Cutter Name Role Phone Akbar Fonseca MD PCP Reason for Visit * Auth/Cert Referred By Contact Referred To Contact Status Reason Specialty Diagnoses / Procedures Diagnoses Pneumocephalus altered mental status Encounter Details Care Team Description Date Type Department Kelton Zelaya MD [address] [address] [phone] Farhad Perez MD [address] [address] [phone] Judy Santoro MD [address] [address] [phone] Pneumonia due to infectious organism 10/19/2018 [facility] 11/03/2018 [address] [place], [place] [id number] Social History Date Tobacco Use Types Packs/Day [...] history available. 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 Judy Santoro Service: Neurology Critical Care Physician Summary completed by: Mica Javed APRN Reason for hospitalization: R temporal lobe intraparenchymal air and surrounding edema concerning for infection, strep pneumonia bacteremia Significant PMH: Past Medical History: Diagnosis Date Arthritis Asthma CAD (coronary artery disease) COPD (chronic obstructive pulmonary disease) (HCC) Depression Disruption or dehiscence of closure of sternum or sternotomy Edentulous 2016 Poor dentition Endometriosis Hyperlipidemia Hypertension, essential Non-healing wound of lower extremity Paroxysmal atrial fibrillation (HCC) Pneumothorax tripped over a [employer] toy, had a pneumothorax, had lung surgery in hospital at [facility] Restless leg syndrome Allergies: Patient has no known allergies. Admission Physical Exam notable for: GCS 7T. Obtunded. Moves all extremities spontaneously and away from stimulus. CN intact from inspection. Lungs with fine bilat crackles in bases. Non healing leg wounds Admission Lab/Radiology studies notable for: CT head with right temporal lobe pneumocephalus and surrounding edema concerning for possible infection/abcess TTE showed LVEF 35-40%, anterior MV leaflet prolapse, eccentric posterior lateral mitral valve regurgitation. No obvious signs of vegetation MRI Brain: Concerns for possible cerebritis of right temporal lobe and developing abscess, thin subdural empyema, mastoiditis Brief Hospital Course: Ms Alonso is a 58 year old female with a complicated PMHx including CAD s/p CABG in [place] in July 2018 with a post-op course complicated by non-healing EVH leg wounds, HTN, HLD, depression, anxiety, and COPD who presented to an OSH on 10/16 with worsening shortness of breath and chest pain. 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 She was started on antibiotics at that time, but had an acute worsening of her mental status on 10/17 along with hypoxia requiring intubation. She had been fairly stable but given her inability to clear her mental status a CT head was obtained which showed right temporal lobe pneumocephalus concerning for possible infection, so she was transferred to [facility] for further care. MRI without abscess NSG no acute surgical intervention. There was concern for multiple skull base defects and/or skull base thinning over bilateral tegmen and right sphenoid wing. ENT consulted for surgical intervention. ID consulted. Continued on Meropenem and Vanc. Positive for Influenza A- started on Tamiflu. Fluconazole for thrush. On 10/23 wound cultures showed pseudomonas resistant to meropenem so she was then switched to Cefepime. Vanc DC'd 10/24. 10/26 repeat MRI showed evidence of a right inferior temporal cerebritis that has coalesced into an abscess. Per NSG, given the small size, we will likely recommend continued medical management. Unable to wean vent, diuresed over several days but then became hypotensive. Metoprolol and lasix stopped /2 hypotension 10/28, fluid bolus given. 10/29 ENT performed bilateral myringotomy with tympanomastoidectomy and trach. 10/31 was becoming delirious overnight, PRN ativan DC'd risperidone and melatonin added. PS 5/5 during day, MMV settings HS. 11/01 PEG placed, gentle diureses 20mg Lasix. 11/02 PS on vent all day, tolerated well. Trach exchanged per ENT 6.0 cuffed Shiley. Metoprolol resumed. Ongoing thrombocytosis and mild leukocytosis, Procal sent- 0.07, afebrile. 11/03 Doing well, stable for transfer, attempting trach shield trial. Of note, she has 2 broken sternal wires by x-ray as well as CT scan. There does not appear to be any associated abscess with her sternal nonunion. CTS did not feel this was emergent and would be happy to readdress this reconstruction with Plastic Surgery assist Condition at Discharge: Stable Discharge Diagnoses: Hospital Problems Active Problems Pneumonia due to infectious organism Acute respiratory failure with hypoxia and hypercapnia (HCC) Altered mental status, unspecified Paroxysmal atrial fibrillation (HCC) Pneumocephalus Cerebritis Abscess of brain Hypertension, essential Hyperlipidemia CAD (coronary artery disease) COPD (chronic obstructive pulmonary disease) (HCC) Depression Resolved Problems RESOLVED: Influenza A Surgical Procedures: As noted in brief hospital summary Significant Diagnostic Studies and Procedures: noted in brief hospital course Consults: ENT, ID, Neurosurgery, Wound Team Patient Disposition: [facility] Patient instructions/medications: Orders/Medications for Discharges to Home and External Facilities: Activity as Tolerated It is important to keep increasing your activity level after you leave the hospital. Moving around can help prevent blood clots, lung infection (pneumonia ) and other problems. Gradually increasing the number of times you are up moving around will help you return to your normal activity level more quickly. Continue to increase the number of times you are up to the chair and walking daily to return to your normal activity level. Begin to work towards your normal activity level at discharge per PT/OT recommendations. Report These Signs and Symptoms Fever, excessive drainage from incision site, pain not controlled with your pain medications, weakness, difficulty walking, or other concerns. Return Appointment For Neurology scheduling contact [phone] For Neurosurgery appointments call [phone] Questions About Your Stay For questions or concerns regarding your hospital stay: -DURING BUSINESS HOURS (8:00 AM - 4:30 PM): Call [phone] and ask to be transferred to your discharge attending physician. -AFTER BUSINESS HOURS (4:30 PM - 8:00 AM, on weekends, or holidays): Call [phone] and ask the ceramics machine operator to page the on-call doctor for the discharge attending physician. Discharging attending physician: JUDY SANTORO [[id number]] Tube Feeding Formula: Isosource 1.5 Schedule: Continuous rate of 45 milliliters per hour. Flush/Rinse: Use water 150 milliliters at one time. Give four times a day. Home Care Instructions: *Please remember to flush/rinse tube with water or normal saline after feed. This will help prevent the tube from clogging. *Don't keep cans of formula open for more than 24 hours. *Stop feeding if you become nauseated or begin vomiting. Hold the next feeding for 1 hour. *Make sure you are sitting up during and after feeding. *Give bolus or syringe feeding over 20 minutes. Feedings given too fast can cause cramping and loose stools. Wound Care Keep wound clean and dry. Do not submerge under water. Opioid (Narcotic) Safety Information OPIOID (NARCOTIC) PAIN MEDICATION SAFETY We care about your comfort, and believe you need opioid medications at this time to treat your pain. An opioid is a strong pain medication. It is only available by prescription for moderate to severe pain. Usually these medications are used for only a short time to treat pain, but sometimes will be prescribed for longer. Talk with your doctor or nurse about how long they expect you to need this medication. When used the right way, opioids are safe and effective medications to treat your pain, even when used for a long time. Yet, when used in the wrong way, opioids can be dangerous for you or others. Opioids do not work for everyone. Most patients do not get full relief of their pain from opioid medication; full relief of your pain may not be possible. For your safety, we ask you to follow these instructions: *Only take your opioid medication as prescribed. If your pain is not controlled with the prescribed dose, or the medication is not lasting long enough, call your doctor. *Do not break or crush your opioid medication unless your doctor or pharmacist says you can. With certain medications, this can be dangerous, and may cause . *Never share your medications with others, even if they appear to have a good reason. Never take someone else's pain medication-this is dangerous, and illegal (a crime). Overdoses and deaths have occurred. *Keep your opioid medications safe, as you would with conklin, in a lock box or similar container. *Make sure your opioids are going to be secure, especially if you are around children or teens. *Talk with your doctor or pharmacist before you take other medications. *Avoid driving, operating machinery, or drinking alcohol while taking opioid pain medication. This may be unsafe. Pain medications can cause constipation. Constipation is bowel movements that are less often than normal. Stools often become very hard and difficult to pass. This may lead to stomach pain and bloating. It may also cause pain when trying to use the bathroom. Constipation may be treated with suppositories, laxatives or stool softeners. A diet high in fiber with plenty of fluids helps to maintain regular, soft bowel movements. Medication List START taking these medications acetaminophen 160 mg/5 mL oral solution Commonly known as: TYLENOL 20.3 mL by Per NG tube route every 4 hours as needed (Temp >38.3C; please notify provider if administered for temp). ascorbic acid 500 mg tablet Commonly known as: VITAMIN C one tablet by Per NG tube route daily. Start taking on: 11/04/2018 cefepime (MAXIPIME) 2 g/20 mL 2 g in sodium chloride 0.9% (NS) 0.9 % 100 mL IVPB (MB+) Administer two g through vein every 8 hours for 2 days. cefTRIAXone 2 g Solr Commonly known as: ROCEPHIN Administer 20 mL through vein every 12 hours. Start taking on: 11/06/2018 chlorhexidine gluconate 0.12 % solution Commonly known as: PERIDEX Swish and Spit 15 mL by mouth as directed twice daily. collagenase 250 unit/g topical ointment Commonly known as: SANTYL Apply to bilateral lower leg wounds twice daily, secure sressings with tape. Change dressings daily docusate 50 mg/5 mL oral solution Commonly known as: COLACE 10 mL by Per OG Tube route twice daily. famotidine 40 mg/5 mL (8 mg/mL) Susp oral suspension Commonly known as: PEPCID 2.5 mL by Per NG tube route twice daily. heparin (porcine) PF 5,000units/0.5mL injection syringe Inject 0.5 mL under the skin twice daily. metoprolol(#) 10 mg/mL Commonly known as: LOPRESSOR Take 3.75 mL via feeding tube twice daily. milk of magnesia (CONC) 2,400 mg/10 mL oral suspension 10 mL by Per OG Tube route daily. Start taking on: 11/04/2018 oxyCODONE 1 mg/mL oral solution Commonly known as: ROXICODONE 5-15 mL by Per NG tube route every 4 hours as needed potassium chloride 20 mEq/15 mL oral solution 15 mL by Per OG Tube route daily. Start taking on: 11/04/2018 Replaces: potassium chloride SR 20 mEq tablet risperiDONE 1 mg tablet Commonly known as: RISPERDAL Take one tablet by mouth at bedtime daily. senna/docusate 8.8/50 mg /10 mL solution Commonly known as: SENOKOT-S 10 mL by Per OG Tube route twice daily. zinc sulfate 220 mg (50 mg elemental zinc) capsule one capsule by Per NG tube route daily. Start taking on: 11/04/2018 CHANGE how you take these medications aspirin 81 mg chewable tablet one tablet by Per OG Tube route daily. Take with food. Start taking on: 11/04/2018 What changed: how to take this atorvastatin 20 mg tablet Commonly known as: LIPITOR one tablet by Per OG Tube route at bedtime daily. What changed: how to take this budesonide respule 0.5 mg/2 mL nebulizer solution Commonly known as: PULMICORT Inhale 2 mL solution by nebulizer as directed twice daily. What changed: how much to take melatonin 3 mg Tab Take one tablet by mouth at bedtime daily. What changed: how much to take CONTINUE taking these medications furosemide 20 mg tablet Commonly known as: LASIX ipratropium/albuterol 20-100 mcg/actuation Mist inhaler Commonly known as: COMBIVENT RESPIMAT Inhale one puff by mouth into the lungs every 4 hours as needed. nicotine 21 mg/day patch Commonly known as: NICODERM CQ STEP 1 Apply one patch to top of skin as directed every 24 hours. Rotate patch location. Indications: Stop Smoking sertraline 50 mg tablet Commonly known as: ZOLOFT Take one tablet by mouth at bedtime daily. STOP taking these medications acetic acid 0.25 % irrigation solution amiodarone 200 mg tablet Commonly known as: CORDARONE CHANTIX CONTINUING MONTH BOX 1 mg tablet Generic drug: varenicline clopiDOGrel 75 mg tablet Commonly known as: PLAVIX gabapentin 800 mg tablet Commonly known as: NEURONTIN HYDROcodone/acetaminophen 5/325 mg tablet Commonly known as: NORCO lisinopril 5 mg tablet Commonly known as: PRINIVIL; ZESTRIL metoprolol XL 25 mg extended release tablet Commonly known as: TOPROL XL ondansetron 4 mg tablet Commonly known as: ZOFRAN oxyCODONE/acetaminophen 5/325 mg tablet Commonly known as: PERCOCET; ENDOCET; ROXICET polyethylene glycol 3350 17 g packet Commonly known as: MIRALAX potassium chloride SR 20 mEq tablet Commonly known as: K-DUR Replaced by: potassium chloride 20 mEq/15 mL oral solution Where to Get Your Medications Information about where to get these medications is not yet available Ask your nurse or doctor about these medications acetaminophen 160 mg/5 mL oral solution ascorbic acid 500 mg tablet aspirin 81 mg chewable tablet atorvastatin 20 mg tablet budesonide respule 0.5 mg/2 mL nebulizer solution cefepime (MAXIPIME) 2 g/20 mL 2 g in sodium chloride 0.9% (NS) 0.9 % 100 mL IVPB (MB+) cefTRIAXone 2 g Solr chlorhexidine gluconate 0.12 % solution collagenase 250 unit/g topical ointment docusate 50 mg/5 mL oral solution famotidine 40 mg/5 mL (8 mg/mL) Susp oral suspension heparin (porcine) PF 5,000units/0.5mL injection syringe ipratropium/albuterol 20-100 mcg/actuation Mist inhaler melatonin 3 mg Tab metoprolol(#) 10 mg/mL milk of magnesia (CONC) 2,400 mg/10 mL oral suspension nicotine 21 mg/day patch oxyCODONE 1 mg/mL oral solution potassium chloride 20 mEq/15 mL oral solution risperiDONE 1 mg tablet senna/docusate 8.8/50 mg /10 mL solution sertraline 50 mg tablet zinc sulfate 220 mg (50 mg elemental zinc) capsule Scheduled appointments: ENT to request follow up 2 weeks after discharge Pending items needing follow up: Resume PRODUCTION CONTROL TECHNOLOGIST Lasix at [facility]. Continue cefepime until 11/05 then continue a 4 week course with Rocephin 2 g IV BID for meningitis. This would continue until at least 11/12 (4 weeks from 10/16). She has 2 broken sternal wires by x-ray as well as CT scan. There does not appear to be any associated abscess with her sternal nonunion. CTS did not feel this was emergent and would be happy to readdress this reconstruction with Plastic Surgery assist Signed: Mica Javed APRN 11/03/2018 cc: Primary Care Physician: Akbar Fonseca Verified Referring physicians: Radha Nance MD documented in this encounter Discharge Instructions * Patient Instructions* Oziel Salvador, MARI - 11/01/2018 5:03 PM CDT INTERVENTIONAL RADIOLOGY Discharge Instructions Gastrostomy Tube (G-tube) Change/ G-GJ Conversion A Gastrostomy tube or G-tube is a soft, narrow tube placed through the skin and stomach wall directly into the stomach. It is used to give feedings, fluids and medications. During or before the procedure, a small nasogastric tube is placed through your nose into your stomach in order to fill the stomach with air. This helps with tube placement and may make you feel full temporarily. Using fluoroscopy to guide placement, a small needle is placed through the skin and advanced into the stomach. In some cases, the tube may be advanced into the upper portion of the small intestines (the jejunum). These are then referred to as a G-J tube or a J-tube. You may also hear the tube referred to as a PEG which is a gastrostomy tube placed in an alternate manner using an endoscope. AFTER THE PROCEDURE: For routine G-tube or G-J tube changes, resume normal feeding and flushing routine. For conversion of G-tube to G-GJ, follow the instructions below: ? Your G-tube will be connected to a gravity drainage bag after placement. Keep bag connected for the first 12 hours post procedure. This is done to ensure the stomach remains decompressed and to identify any bleeding. Do not use the G-tube until 12 hours after the procedure. At that time, you should disconnect the bag and begin using the tube by instilling small amounts of water (50-100ml) using a large feeding syringe. Feedings may begin 24 hours after the procedure, if water is tolerated. Be sure to flush G-tube with 50ml of water after each feeding. (Contact your referring physician for instructions on feeding.) ? You must flush your tube with at least 50ml water, twice daily until feedings start. POST-PROCEDURE ACTIVITY: A responsible adult must drive you home. You should not drive, operate heavy machinery or do anything that requires concentration for at least 24 hours after receiving sedation or anesthesia. It is recommended that a responsible adult be with you until morning. Avoid any exertion for one week. Exertion is lifting over 5 lbs., pushing, pulling or straining. Never use scissors, pins, or other sharp objects near the tube. Avoid bending, crimping or pulling on the tube. Be sure your hands are clean when touching near the tube site or near the suture lock sites. Do not use ointments, creams or powders around the site unless ordered by your physician. POST-PROCEDURE SITE CARE: Keep the dressing around the tube dry. Remove it in 1-2 days and leave the site open to air. For the first 2 days, clean around the tube site and the suture lock sites with warm water and mild soap. Rinse thoroughly and dry gently. You may use a cotton-tipped applicator or small piece of gauze. The suture locks look like small buttons around the tube. They typically detach from the abdomen and fall off in about 10 days as the sutures are absorbed. In rare cases, the suture locks do not fall off and must be removed by the physician. The sutures will usually absorb completely in about 3 months. You may shower after 24 hours and you should gently clean around the tube site while in the shower using mild soap. If you are unable to shower, continue to clean around the tube site and suture lock sites daily as described above. Do not submerge the tube site underwater (no tub bath, swimming/hot tub, etc. ) DIET/MEDICATIONS: If you are able to take oral feedings, begin with a clear liquid diet 12 hours after your tube is placed. If you are tolerating liquids with no distention or abdominal pain, you may begin to eat and drink 24 hours after the procedure. Begin with a clear liquid diet and advance to a normal diet as you can tolerate. Avoid any foods or beverages containing alcohol for at least 24 hours after receiving sedation or anesthesia. Please see attached Medication Reconciliation Sheet for instructions on resuming your home medications. If you are on blood thinning medications, you must contact your doctor who manages them to receive instructions on when to resume them and on when blood work should be done. WHEN TO CALL THE DOCTOR: (Please call 911 for severe symptoms) You have bleeding from the tube site or through the tube. You are coughing up or vomiting blood or see blood in your stool. You have severe pain at the site or increasing abdominal discomfort. (Some soreness at the site is normal for a few days.) You have persistent nausea or vomiting. You have signs of infection such as: -Redness, swelling around the tube (a small area of redness is normal). -Fever greater than 101?F. -Pus-like drainage from around the tube. You have a blocked tube, leaking around the tube site or the tube falls out. After 2 weeks, your suture locks have not fallen off. For any of the above symptoms or for problems or concerns related to the procedure, call [phone] for Monday-Monday 7-5. After-hours and weekends, please call [phone] and ask for the Interventional Miter Cutter on-call. * Appointments* Mica Javed APRN - 11/03/2018 11:30 AM CDT ENT to request follow up 2 weeks after discharge documented in this encounter Medications at Time of Discharge Start Date End Date Medication Sig Dispensed Refills 11/03/2018 acetaminophen (TYLENOL) 20.3 mL by 240 mL 0 160 mg/5 mL oral solution Per NG tube route every 4 hours as needed (Temp >38.3C; please notify provider if administered for temp). 11/04/2018 ascorbic acid (VITAMIN C) one tablet by 90 tablet 3 500 mg tablet Per NG tube route daily. 11/04/2018 aspirin 81 mg chewable one tablet by 90 tablet 3 tablet Per OG Tube route daily. Take with food. 11/03/2018 atorvastatin (LIPITOR) 20 one tablet by 90 tablet 3 mg tablet Per OG Tube route at bedtime daily. 11/03/2018 budesonide respule Inhale 2 mL 60 mL 3 (PULMICORT) 0.5 mg/2 mL solution by nebulizer solution nebulizer as directed twice daily. 11/06/2018 cefTRIAXone (ROCEPHIN) 2 Administer 20 0 g solr mL through vein every 12 hours. 11/03/2018 chlorhexidine gluconate Swish and 0 (PERIDEX) 0.12 % solution Spit 15 mL by mouth as directed twice daily. 11/03/2018 collagenase (SANTYL) 250 Apply to 0 unit/g topical ointment bilateral lower leg wounds twice daily, secure sressings with tape. Change dressings daily 11/03/2018 docusate (COLACE) 50 mg/5 10 mL by Per 0 mL oral solution OG Tube route twice daily. 11/03/2018 famotidine (PEPCID) 40 2.5 mL by Per 50 mL 0 mg/5 mL (8 mg/mL) susp NG tube route oral suspension twice daily. furosemide (LASIX) 20 mg Take 20 mg by 0 tablet mouth every morning. 11/03/2018 heparin (porcine) PF Inject 0.5 mL 0 5,000units/0.5mL under the injection syringe skin twice daily. 11/03/2018 ipratropium/albuterol Inhale one 0 (COMBIVENT RESPIMAT) puff by mouth 20-100 mcg/actuation mist into the inhaler lungs every 4 hours as needed. 11/03/2018 melatonin 3 mg tab Take one 0 tablet by mouth at bedtime daily. 11/03/2018 metoprolol(#) (LOPRESSOR) Take 3.75 mL 0 10 mg/mL via feeding tube twice daily. 11/04/2018 milk of magnesia (CONC) 10 mL by Per 360 mL 0 2,400 mg/10 mL oral OG Tube route suspension daily. 11/03/2018 nicotine (NICODERM CQ Apply one 28 patch 2 STEP 1) 21 mg/day patch to top patchIndications: Smoking of skin as Cessation directed every 24 hours. Rotate patch location. Indications: Stop Smoking 11/03/2018 oxyCODONE (ROXICODONE) 1 5-15 mL by 0 mg/mL oral solution Per NG tube route every 4 hours as needed 11/04/2018 potassium chloride 20 15 mL by Per 473 mL 0 mEq/15 mL oral solution OG Tube route daily. 11/03/2018 risperiDONE (RISPERDAL) 1 Take one 0 mg tablet tablet by mouth at bedtime daily. 11/03/2018 senna/docusate 10 mL by Per 0 (SENOKOT-S) 8.8/50 mg /10 OG Tube route mL solution twice daily. 11/03/2018 sertraline (ZOLOFT) 50 mg Take one 0 tablet tablet by mouth at bedtime daily. 11/04/2018 zinc sulfate 220 mg (50 one capsule 0 mg elemental zinc) by Per NG capsule tube route daily. 11/03/2018 11/05/2018 cefepime (MAXIPIME) 2 Administer 0 g/20 mL 2 g in sodium two g through chloride 0.9% (NS) 0.9 % vein every 8 100 mL IVPB (MB+) hours for 2 days. documented as of this encounter Progress Notes * Judy Santoro MD - 11/03/2018 10:39 AM CDT NEURO-ENT ICU Critical Care Progress Note Today's Date: 11/03/2018 Name: Etelvina Alonso Admission Date: 10/19/2018 LOS: 15 days ICU problem list: Patient Active Problem List Diagnosis Date Noted Hypertension, essential 11/01/2018 Hyperlipidemia 11/01/2018 CAD (coronary artery disease) 11/01/2018 COPD (chronic obstructive pulmonary disease) (HCC) 11/01/2018 Depression 11/01/2018 Pneumocephalus 10/26/2018 Cerebritis 10/26/2018 Influenza A 10/26/2018 Abscess of brain 10/26/2018 Paroxysmal atrial fibrillation (HCC) 10/25/2018 Altered mental status, unspecified 10/20/2018 Pneumonia due to infectious organism 10/19/2018 Acute respiratory failure with hypoxia and hypercapnia (HCC) 10/19/2018 ATTESTATION Date of Service: 11/02/2018 I have seen, personally fully evaluated, and discussed patient with the Neuro- ENT ICU team. The patient is ill after transfer from OSH 10/19 with R temporal lobe intraparenchymal air and surrounding edema concerning for developing abscess. 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 Acute hypoxic and hypercapnic respiratory failure, sternal non-union likely contributing to inability to wean vent quickly. Cont SBTs - tolerated PSV for a full 24 hours yesterday. Continue today altho will do short trial on trach shield this morning to see how she does. Suspect acute encephalopathy/delirium/owning may also play a role in vent weaning difficulties as pt had another episode of tachycardia and "panic" on Monday evening that became worse with ativan. Ordered 1mg risperdal and melatonin to be adminstered Mon night which seemed to be beneficial - no episodes of panic noted and she reportedly slept well - continue. Ativan has been taken off the OCT. Precedex is also off the OCT - while it works well for her at night, am trying to find a regimen that will be suitable post-ICU discharge. ID - afebrile but mild leukocytosis and increasing thrombocytosis noted over the last several days. Pt looked well but was concerned she might have something brewing. Sent procal - it was negative and platelets were down today. Hold diuresis today as BUN/cr up some in the context of decreased intake due to new PEG (was NPO for a day or so). Ok to resume PRODUCTION CONTROL TECHNOLOGIST lasix dose tomorrow. Dispo: This patient is recovering well from her acute illness and is stable for discharge to LTAC today for additional vent weaning. Team to call her today to let him know. Staff name: Julia Santoro MD Date: 11/03/2018 __ Objective: Medications: Scheduled Meds: ascorbic acid (VITAMIN C) tablet 500 mg 500 mg Per NG tube QDAY aspirin chewable tablet 81 mg 81 mg Per OG Tube QDAY atorvastatin (LIPITOR) tablet 20 mg 20 mg Per OG Tube QHS budesonide respule (PULMICORT) nebulizer solution 0.5 mg 0.5 mg Inhalation BID cefepime (MAXIPIME) 2 g in sodium chloride 0.9% (NS) 100 mL IVPB (MB+) 2 g Intravenous Q8H* [START ON 11/06/2018] cefTRIAXone (ROCEPHIN) IVP 2 g 2 g Intravenous Q12H* chlorhexidine gluconate (PERIDEX) 0.12 % solution 15 mL 15 mL Swish & Spit BID collagenase (SANTYL) topical ointment Topical BID docusate (COLACE) oral solution 100 mg 100 mg Per OG Tube BID famotidine (PEPCID) oral suspension 20 mg 20 mg Per NG tube BID heparin (porcine) PF syringe 5,000 Units 5,000 Units Subcutaneous Q8H melatonin tablet 3 mg 3 mg Oral QHS metoprolol(#) (LOPRESSOR) solution 37.5 mg 37.5 mg Feeding Tube BID milk of magnesia (CONC) oral suspension 10 mL 10 mL Per OG Tube QDAY nicotine (NICODERM CQ STEP 1) 21 mg/day patch 1 patch 1 patch Transdermal QDAY( 21) ofloxacin (FLOXIN) 0.3 % (ophthalmic for otic use) solution 4 drop 4 drop Both Ears TID potassium chloride oral solution 20 mEq 20 mEq Per OG Tube QDAY risperiDONE (RISPERDAL) tablet 1 mg 1 mg Oral QHS senna/docusate (SENOKOT-S) solution 10 mL 10 mL Per OG Tube BID sertraline (ZOLOFT) tablet 50 mg 50 mg SEE ADMIN INSTRUCTIONS QHS zinc sulfate capsule 220 mg 220 mg Per NG tube QDAY Continuous Infusions: PRN and Respiratory Meds:acetaminophen Q4H PRN, acetaminophen Q4H PRN, calcium gluconate IV PRN (Heating Operators Engineer from Rx) AND Ionized Calcium PRN AND Notify Physician Ongoing, fentaNYL citrate PF Q1H PRN, ipratropium/albuterol Q4H PRN, magnesium sulfate PRN AND [CANCELED] Magnesium PRN AND Notify Physician Ongoing, oxyCODONE Q4H PRN, pancrelipase 20,000 Units/ sodium bicarbonate 650 mg (#) PRN (Heating Operators Engineer from Rx), potassium chloride SR PRN OR potassium chloride PRN Vital Signs: Last Filed Vital Signs: 24 Hour Range BP: 127/94 (11/03 1000) Temp: 37.1 C (98.8 F) (11/03 0800) Pulse: 113 (11/03 0900) Respirations: 22 PER MINUTE (11/03 0900) SpO2: 100 % (11/03 0900) O2 Delivery: Tracheal Tube (11/03 0700) Weight: 52.2 kg (115 lb 1.3 oz) (11/03 0530) BP: (90-142)/(46-109) Temp: [37.1 C (98.8 F)-37.3 C (99.1 F)] Pulse: [70-124] Respirations: [14 PER MINUTE-29 PER MINUTE] SpO2: [97 %-100 %] O2 Delivery: Tracheal Tube Intensity Pain Scale (Self Report): (not recorded) Vitals: 10/29/18 0500 10/30/18 0400 11/03/18 0530 Weight: 51.7 kg (113 lb 15.7 oz) 51.5 kg (113 lb 8.6 oz) 52.2 kg (115 lb 1.3 oz ) Intake/Output Summary: (Last 24 hours) Intake/Output Summary (Last 24 hours) at 11/03/2018 1039 Last data filed at 11/03/2018 0900 Gross per 24 hour Intake 1362 ml Output 605 ml Net 757 ml Physical Exam: Eyes open, alert, NAD FF commands x 4 Nods, mouth words and writes appropriately RRR, no murmur CTA B/L Abd S, NT +BS Ext warm, no edema - saphenous graft sites well healed Artificial airway: Tracheostomy Tube Ventilator/ Respiratory Therapy: Yes: Weaning readiness screen (RT Only):: Implement protocol Weaning readiness screen Met (RT Only):: Yes FiO2 (Manual entry): [0.4] Mode: PS/CPAP Tidal Volume Spont (mL): [290 milliliters-367 milliliters] Total Respiratory Rate (Breaths/Min): [20 breaths/minutes-33 breaths/minutes] Minute Volume (L/min): [6.52 liters/minutes-11.7 liters/minutes] O2%: [40 %] PIP Actual: [11 cm H20] PEEP/CPAP: [5 cm H2O] PSupport: [5 cm H20] Vent weaning trial: Per protocol Lab Review: Pertinent labs reviewed Point of Care Testing: (Last 24 hours): Radiology and Other Diagnostic Procedures Review: Pertinent radiology reviewed. Julia Santoro MD 11/03/2018 Pager: [phone] * Mica Javed, CRITICAL POWER INSTALL TECHNICIAN - 11/03/2018 7:30 AM CDT Neuro Critical Care Progress Note Etelvina Alonso Admission Date: 10/19/2018 LOS: 15 days Full Code ASSESSMENT/PLAN Patient Active Problem List Diagnosis Date Noted Hypertension, essential 11/01/2018 Hyperlipidemia 11/01/2018 CAD (coronary artery disease) 11/01/2018 COPD (chronic obstructive pulmonary disease) (HCC) 11/01/2018 Depression 11/01/2018 Pneumocephalus 10/26/2018 Cerebritis 10/26/2018 Influenza A 10/26/2018 Abscess of brain 10/26/2018 Paroxysmal atrial fibrillation (HCC) 10/25/2018 Altered mental status, unspecified 10/20/2018 Pneumonia due to infectious organism 10/19/2018 Acute respiratory failure with hypoxia and hypercapnia (HCC) 10/19/2018 Etelvina Alonso is a 58 y.o. female with history of HTN, HLD, non-healing leg wounds, CAD s/p CABG in 07/2018 who presented to an OSH on 10/16 with shortness of breath and chest pains and found to have a RUL pneumonia. She was intubated on 10/17 2/ worsening respiratory status and AMS. On 10/19, CTA with R temporal lobe intraparenchymal air and surrounding edema. Transferred to [facility] for escalation of care. Hospital and ICU course: 10/19: [facility] 10/23: LP 10/26: DC amiodarone. Start spironolactone 12.5mg daily and lasix 20mg daily. Placed flexiseal 10/29: trach placement 10/31: DC Ativan, increase risperidone to 1mg HS, add melatonin 3mg HS. CXR to eval for complaints of SOA. DC central line. 11/01: Lasix 20 mg; PEG placement 11/02: Metoprolol resumed, water flushes per PEG, resume tube feeds at 1900. Thrombocytosis, slight leukocytosis, procal and cdiff sent. Trach change planned for today 11/02: Metoprolol decreased to 37.5mg. Did well on PS 5/5 overnight. DC to LTACH today Neuro/ENT: Encephalopathy Meningitis Right temporal lobe abscess Depression -[id number] -PT/OT -Sertraline HS Sedation/Pain Management: Delirium -PRN fentanyl, oxycodone and tylenol available -Melatonin 3mg HS, risperdal 1 mg HS -Assess for delirium daily Cardiac: HTN HLD CAD s/p CABG in 07/2018 Paroxysmal AF Echo: 35-40%, mitral valve borderline prolapse and regurg no vegetations,Mild TR JYOTSNA:There is a small echogenic mass on the coaptation line of the aortic valve -SBP goal: < 160 -MAP goal > 65 - holding PRODUCTION CONTROL TECHNOLOGIST lisinopril - Resuming metoprolol- Will drop dose to 37.5 09/15 soft BP - continuePTA atrovastatin and ASA - diuresed 11/01 - Resume PRODUCTION CONTROL TECHNOLOGIST Lasix at LTACH Respiratory: Acute hypoxic and hypercapneic respiratory failure on mechanical ventilation S/p Trach placement 10/29 per ENT Chest Xray 10/31:Progressing mixed opacities most apparent in the left perihilar region and left midlung. Persistent cardiomegaly with vascular congestion and small bilateral pleural effusions. - Currently on PS 5/5- will continue with PS open ended -PRODUCTION CONTROL TECHNOLOGIST budesonide - trach to be changed per ENT 11/02 GI: -Feeding: NPO, Isosource 1.5 @ 50 ml/hr with free water 150 ml every 6 hours -Bowel regimen, ensure daily BM(last BM 11/03) - Resend CDiff -Famotidine BID Heme: Thrombocytosis- 2/2 acute illness Normocytic Anemia s/p 1 unit (10/29) -Trend daily CBC -Hgb10.3, Plt 643 - Procal 0.07 -SQ Heparin -ASA 81mg ID: Leukocytosis, mild HCAP+ Step pneumo bacteremia Influenza A (completed Tamiflu 10/30) LEwounds + Pseudomonas - TMax 37.2 -WBC 11.2 - Procal 0.07 - Cdiff negative 10/24 - LLE wound + pseudomonaas - Blood cultures 10/20 and 10/22 NGTD - Sputum NGTD 10/20 - CSF 10/23 NGTD -IDfollowingappreciate recs -Continue cefepimeuntil11/05, thenswitch to Rocephin 2 g IV BID until -Ofloxacin drops TID Renal: - BUN 26, Creat 0.63 - Free water resumed yesterday- will continue with same plan for hydration -Aim for normovolemia Endocrine: - Trend on daily BMP - Blood glucose goal 100-180mg/dl FEN: IVF:SL- TF with free water flushes Electrolyte protocol in place Magnesium goal >2.0, i-Earl goal > 1.0, Potassium goal >4.0 mEq/L Prophylaxis Review: A)GI: [id number] B) Lines:Yes; Central Line; Indication: Frequent blood draws; Type: Internal jugular- Remove today C) Urinary Catheter:No D) Antibiotic Usage:Yes; Infection present or suspected: Lung; Pneumonia E) VTE:Pharmacological prophylaxis; SQ Heparinand Mechanical prophylaxis; Sequential compression device F) Isolation:Droplet G)Seizures:na I) Restraints: Patient assessed for need for restraints. Disposition/Family:Stable for transfer to [facility] Primary service:NEICU Consults: ENT, ID, PT/OT, Dietary, Wound Team SUBJECTIVE Etelvina Alonso is a 58 y.o. female. Overnight Events: No new events noted. OBJECTIVE Vital Signs: Last Filed Vital Signs: 24 Hour Range BP: 101/51 (11/03 699) Temp: 37.2 C (98.9 F) (11/030) Pulse: 93 (11/03 699) Respirations: 20 PER MINUTE (11/03 699) SpO2: 100 % (11/03 699) O2 Delivery: Tracheal Tube (11/03 699) Weight: 52.2 kg (115 lb 1.3 oz) (11/03 529) BP: (90-134)/(46-109) Temp: [37.1 C (98.8 F)-37.3 C (99.1 F)] Pulse: [70-124] Respirations: [14 PER MINUTE-29 PER MINUTE] SpO2: [97 %-100 %] O2 Delivery: Tracheal Tube Intensity Pain Scale (Self Report): (not recorded) Vitals: 10/29/18 0500 10/30/18 0400 11/03/18 0530 Weight: 51.7 kg (113 lb 15.7 oz) 51.5 kg (113 lb 8.6 oz) 52.2 kg (115 lb 1.3 oz ) Artificial airway: Tracheostomy Tube Ventilator/ Respiratory Therapy: Yes: Weaning readiness screen (RT Only):: Implement protocol Weaning readiness screen Met (RT Only):: Yes FiO2 (Manual entry): [0.4] Mode: PS/CPAP Tidal Volume Spont (mL): [290 milliliters-367 milliliters] Total Respiratory Rate (Breaths/Min): [20 breaths/minutes-33 breaths/minutes] Minute Volume (L/min): [6.52 liters/minutes-11.7 liters/minutes] O2%: [40 %] PIP Actual: [11 cm H20] PEEP/CPAP: [5 cm H2O] PSupport: [5 cm H20] Vent weaning trial: PS (Pressure Support) + 5 cmH2O Lines: Peripheral Line Drains: None Intake/Output Summary: (Last 24 hours) Intake/Output Summary (Last 24 hours) at 11/03/2018 0731 Last data filed at 11/03/2018 0530 Gross per 24 hour Intake 1081 ml Output 905 ml Net 176 ml Stool Occurrence: 1 Physical Exam: Blood pressure 101/51, pulse 93, temperature 37.2 C (98.9 F), height 162.6 cm (64"), weight 52.2 kg (115 lb 1.3 oz), SpO2 100 %. [place] coma score: E: 4 - Opens eyes on own M: 6 - Follows simple motor commands V: 1T Neuro: Mental Status:Alert&Oriented x 3, remainswith trach Cranial Nerves: - Pupil exam: Size: R - 3mm, L - 4mmReactivity: brisk - Corneal reflex: R- presentL- present - Grimace/facial movement: present - Cough: present Motor: Moves all extremities spontaneously and to command 5/5 Lungs:clear to auscultation bilaterally Pulmonary:Respiratory status:Stableon mechanical ventilation Heart:S1, S2 normal Abdomen:soft, non-tender. Bowel sounds normal. No masses, no organomegaly Extremities:extremities normal, atraumatic, no cyanosis or edema Skin:Skin color, texture, turgor normal. No rashes or lesions Point of Care Testing: (Last 24 hours) Lab Review: Pertinent labs reviewed Radiology and Other Diagnostic Procedures Review: Pertinent radiologic and diagnostic procedures reviewed. Mica Javed APRN Date: 11/03/[phone] Mrs. Alonso is in stable condition with: R temporal lobe abscess, encephalopathy, bacteremia, HCAP, HTN, CAD, respiratory failure.Cares included: detailed neurologic and systems exam, medication review, laboratory data review and interpretation, electrolyte management, review of available imaging, DVT/PE prophylaxis review, diet review, activity review, mechanical ventilation and sedation management, and coordination of care with consulted teams * Radha Hu, MARI - 11/02/2018 5:30 PM CDT Pt received pain med, pt states pain improving, but exhibits very anxious behavior after leaving. Notified neuro ICU HR 136, bp 139/94, received orders to give metropolol pm dose a little earlier. * Sudha Madera - 11/02/2018 3:06 PM CDT CLINICAL NUTRITION Clinical Nutrition Follow-Up Summary NAME:Etelvina Alonso :1960 AGE: 58 y.o. ADMISSION DATE: 10/19/2018 DAYS ADMITTED: LOS: 14 days Nutrition Assessment of Patient: Malnutrition Assessment: Does not meet criteria Current Oral Intake: NPO Estimated Calorie Needs: 1585(30 kcal/kg @ 52.8 kg) Estimated Protein Needs: 80(1.5g/kg @ 52.8kg) Oral Diet Order: NPO Intake (calories) Daily Average : 888 kilocalories(56% of needs) Intake (protein) Daily Average : 48 grams(60% of needs) Current EN Order: Isosource 1.5 @ goal of 45 ml/hr + 1 pack Prosource per day to provide 1680 kcal, 88 gm protein and 820 ml free water from EN at goal. 150 ml q6hrs. Comments: 58 yo female with hx of COPD, HTN, HLD, CAD s/p CABG in 07/2018 with non- healing leg wounds who presented to an OSH on 10/16 with shortness of breath and chest pains and was found to have a RUL pneumonia. She was intubated on 10/17 secondary to worsening respiratory status and AMS. On 10/19, CTA showed R temporal lobe intraparenchymal air and surrounding edema. Transferred to [facility] for escalation of care. Pt intubated via trach placed 10/29. NGT in place. No longer sedated. EN was held 24 hr starting 11/01 for PEG placement; will resume EN tonight. Subjective data in note from 10/29. Stage III pressure injury on sacrum. Pt on Vit C and zinc supplements. BM 11/02. Labs WNL. Recommendation: Recommend continue current EN reginmen as ordered. Intervention / Plan: Monitor EN for tolerance, adequacy, and appropriteness Monitor wt trends, labs Nutrition Diagnosis: Increased nutrient needs, specify:(kcal/protein) Etiology: demands for wound healing Signs & Symptoms: stage III pressure injury Increased nutrient needs, specify:(kcal/protein) Etiology: demands for wound healing Signs & Symptoms: stage III pressure injury to Goals: EN tolerated and meeting >85% of nutritional needs Time Frame: Throughout Stay Status: Partially met;Ongoing Sudha Madera Roundhouse Worker *[id number] Associated attestation - Joy Spencer - 11/02/2018 3:09 PM CDT Discussed case with hospitality intern & concur with hospitality intern's documentation of assessment, interventions and goals. Erika Spencer RD, LD Pager: [phone] * Elenita Butler OT - 11/02/2018 1:16 PM CDT OCCUPATIONAL THERAPY PROGRESS NOTE Patient Name: Etelvina Alonso Room/Bed: [place] [address] Admitting Diagnosis: altered mental status Mobility Progressive Mobility Level: Active transfer to chair Distance Walked (feet): (3 ft sidestep, then pivot) Level of Assistance: Assist X2 Activity Limited By: Lines / Medical Devices Subjective Pertinent Dx per Physician: HTN, HLD, no nhealing leg wounds, CAD s/p CABG in in [place] who presented to an OSH on 10/16 with shortness of breath and chest pains and found to have a RUL pneumonia. She was intubated on 10/17 2/2 worsening respiratory status and AMS. Workup showed cerebritis, tegmen dehisence , encephalocele, possible temporal lobe abscess. Sternal nonunion, 2 loosened sternal wires, nonop per CTS. s/p trach, B myringotomy and tube placement, R mastoidectomy 10/29 Precautions: Falls;NPO Comments: pt reports pain at PEG site. RN providing medication Objective Psychosocial Status: Willing and Cooperative to Participate Persons Present: Physical Therapist;Nursing Staff Vision Current Vision: Wears Glasses All of the Time ADL's LE Dressing Assist: Stand By Assist LE Dressing Deficits: Don/Doff R Sock;Don/Doff L Sock Functional Transfer Assist: Minimal Assist(second person for line management) Activity Tolerance Endurance: 3/ Tolerates 25-30 Minutes Exercise w/Multiple Rests Sitting Balance: 2+/5 Supports Self w/ 1 UE Ventilator settings Ventilator Mode FiO2 (%) PEEP Pressure Support SpO2 (%) Respiratory Rate (RR) Location of Endotracheal tube (ETT) at the gums CPAP 40 5 5 Pre Activity:99 During Activity:99 Post Activity:99 Pre Activity:24 During Activity:30 Post Activity:24 Trach AM-PAC 6 Clicks Daily Activity Inpatient Putting on and taking off regular lower body clothes?: Total Bathing (Including washing, rinsing, drying): Total Toileting, which includes using toilet, bedpan, or urinal: Total Putting on and taking off regular upper body clothing: Total Taking care of personal grooming such as brushing teeth: Total Eating meals?: Total Daily Activity Raw Score: 6 Standardized (t-scale) score: 17.07 CMS 0-100% Score: 100 CMS G Code Modifier: CN Plan OT Frequency: 5x/week OT Plan for Next Visit: upright tolerance, grooming chair or stand level, transfers, vent walk with PT? ADL Goals Patient Will Perform Grooming: w/ Minimum Assist;in Chair Patient Will Perform LE Dressing: w/ Minimum Assist Other ADL Goal 1: Pt to sit edge of bed with minimal assist X3 minutes with stable vitals(MET) Functional Transfer Goals Pt Will Perform All Functional Transfers: Minimum Assist Pt Will Transfer To Bedside Commode: w/ Minimum Assist Arm Goals Pt Will Perform AROM: 10 Reps(all planes of motion with stable vitals) OT Discharge Recommendations OT Discharge Recommendations: Inpatient Setting Equipment Recommendations: Too early to be determined Therapist: Elenita Butler OT Date: 11/02/2018 * Louise Hennessy, PT - 11/02/2018 1:15 PM CDT PHYSICAL THERAPY PROGRESS NOTE SUBJECTIVE: Subjective Significant hospital events: Presented to an OSH on 10/16 with shortness of breath and chest pains and found to have a RUL pneumonia. She was intubated on 2/2 worsening respiratory status and AMS. On 10/19, CTA with R temporal lobe intraparenchymal air and surrounding edema. Transferred to [facility] for escalation of care. Flail sternum and pna contributed to difficulty weaning vent. Repeat MRI showed right inferior temporal cerebritis that has coalesced into an abscess. Bilateral myringotomy and tube, Mastoidectomy, and Tracheostomy on . Mental / Cognitive Status: Alert;Cooperative;Follows Commands;Ventilator; Tracheostomy Persons Present: Occupational Therapist Pain: Patient has no complaint of pain Ambulation Assist: Independent Mobility in Community without Device Home Situation: Lives with Family Ventilator settings Ventilator Mode FiO2 (%) PEEP Pressure Support SpO2 (%) Respiratory Rate (RR) Location of Endotracheal tube (ETT) at the [facility] CPAP 40 5 5 Pre Activity:99 During Activity:99 Post Activity:99 Pre Activity:24 During Activity:30 Post Activity:24 Trach ROM: ROM LE ROM WFL: Yes STRENGTH: Strength Overall Strength: WFL BED MOBILITY/TRANSFERS: Bed Mobility/Transfers Bed Mobility: Supine to Sit: Minimal Assist;Assist with Trunk Bed Mobility: Sit to Supine: Minimal Assist;of 1st person;Safety Considerations; of 2nd person Transfer Type: Sit to Stand Transfer: Assistance Level: To/From;Bed;Minimal Assist(second person for ventilator management. ) Transfer: Assistive Device: Hand Hold Assist Transfers: Type Of Assistance: For Balance;For Strength Deficit;For Safety Considerations Other Transfer Type: Stand Pivot Other Transfer: Assistance Level: From;Bed;To;Bed Side Chair;Minimal Assist;of 1st person;Standby Assist;of 2nd person Other Transfer: Assistive Device: Hand Hold Assist Other Transfer: Type Of Assistance: For Balance;For Strength Deficit;For Safety Considerations End Of Activity Status: Up in Chair;Nursing Notified;Instructed Patient to Request Assist with Mobility;Instructed Patient to Use Call Light(chair alarm on ) BALANCE: Balance Sitting Balance: Static Sitting Balance;Standby Assist;1 UE Support(few periods of minimal assist ) Standing Balance: Static Standing Balance;2 UE support;Minimal Assist GAIT: Gait Gait Distance: 5 feet Gait: Assistance Level: Minimal Assist;of 1st person;Safety Considerations;of 2nd person Gait: Assistive Device: Hand Hold Assist Gait: Descriptors: Pace: Slow;Decreased step length;No balance loss Comments: Patient ambulated 2 steps forward and back and able to take side steps to head of bed and from bed to bedside chair Activity Limited By: Complaint of Fatigue;Weakness Comments: All vital signs stable throughout treatment. ACTIVITY/EXERCISE: Activity / Exercise Sit Edge Of Bed: 5 minutes Sit Edge Of Bed Assist: Stand By Assist;Minimal Assist Stand At Bedside : 2 minutes Stand At Bedside Assist: Minimal Assist EDUCATION: Education Persons Educated: Patient Patient Barriers To Learning: Anxiety Interventions: Repetition of Instructions Teaching Methods: Verbal Instruction Patient Response: More Instruction Required Topics: Plan/Goals of PT Interventions;Importance of Increasing Activity; Recommend Continued Therapy ASSESSMENT/PROGRESS: Assessment/Progress Impaired Mobility Due To: Decreased Activity Tolerance;Medical Status Limitation Assessment/Progress: Should Improve w/ Continued PT AM-PAC 6 Clicks Basic Mobility Inpatient Turning from your back to your side while in a flat bed without using bed rails : A Little Moving from lying on your back to sitting on the side of a flatbed without using bedrails : A Little Moving to and from a bed to a chair (including a wheelchair): A Little Standing up from a chair using your arms (e.g. wheelchair, or bedside chair): A Little To walk in hospital room: A Lot Climbing 3-5 steps with a railing: Total Raw Score: 15 Standardized (T-scale) Score: 36.97 Basic Mobility CMS 0-100%: 50.4 CMS G Code Modifier for Basic Mobility: CK GOALS: Goals Goal Formulation: With Patient Time For Goal Achievement: 5 days Patient Will Go Supine To/From Sit: w/ Stand By Assist Patient Will Transfer Bed/Chair: w/ Minimal Assist PLAN: Plan Treatment Interventions: Mobility Training;Strengthening Plan Frequency: 5 Days per Week PT Plan for Next Visit: Work on bed to chair transfers. Trial vent walk as patient tolerance allows RECOMMENDATIONS: PT Discharge Recommendations PT Discharge Recommendations: Inpatient Setting;Recommend Physical Medicine and Rehabilitation Consult to address most appropriate level of rehabilitation placement Therapist: Louise Hennessy, PT Date: 11/02/2018 * Judy Santoro MD - 11/02/2018 10:59 AM CDT NEURO-ENT ICU Critical Care Progress Note Today's Date: 11/02/2018 Name: Etelvina Alonso Admission Date: 10/19/2018 LOS: 14 days ICU problem list: Patient Active Problem List Diagnosis Date Noted Hypertension, essential 11/01/2018 Hyperlipidemia 11/01/2018 CAD (coronary artery disease) 11/01/2018 COPD (chronic obstructive pulmonary disease) (HCC) 11/01/2018 Depression 11/01/2018 Pneumocephalus 10/26/2018 Cerebritis 10/26/2018 Influenza A 10/26/2018 Abscess of brain 10/26/2018 Paroxysmal atrial fibrillation (HCC) 10/25/2018 Altered mental status, unspecified 10/20/2018 Pneumonia due to infectious organism 10/19/2018 Acute respiratory failure with hypoxia and hypercapnia (HCC) 10/19/2018 ATTESTATION Date of Service: 11/02/2018 I have seen, personally fully evaluated, and discussed patient with the Neuro- ENT ICU team. The patient is critically ill after transfer from OSH 10/19 with R temporal lobe intraparenchymal air and surrounding edema concerning for developing abscess. 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 HTN HLD COPD Tobaccoism Acute on chronic anemia I spent 35 minutes (excluding time spent performing or supervising any procedures) providing and personally directing critical care services including -review of serial neurologic, hemodynamic, respiratory, telemetry, laboratory and imaging data -management of fluids/electrolytes, antibiotics, vasoactive medications, gas exchange/mechanical ventilation, sepsis protocol, ICU prophylaxis and ICU core measures -pain/sedation/delirium mgt -medication review and management -organization and coordination of care with patient (or surrogate), ICU team and consulting services. -directing the formulation of the overall plan of care outlined below. Acute hypoxic and hypercapnic respiratory failure, sternal non-union likely contributing to inability to wean vent quickly. Cont SBTs - tolerated PSV for almost a full 24 hours yesterday. Will try for continuous PSV today. Suspect acute encephalopathy/delirium/ may also play a role in vent weaning difficulties as pt had another episode of tachycardia and "panic" on Monday evening that became worse with ativan. Ordered 1mg risperdal and melatonin to be adminstered Mon night which seemed to be beneficial - no episodes of panic noted and she reportedly slept well - continue. Ativan has been taken off the OCT. Precedex is also off the OCT - while it works well for her at night, am trying to find a regimen that will be suitable post-ICU discharge. CXR with some pulmonary edema - diuresed yesterday altho not as negative as we planned. Hold diuresis today, however, as she's NPO given new PEG. Will see where she shakes out and restart gentle diuresis tomorrow. Remainder of plan per CRITICAL POWER INSTALL TECHNICIAN's note. Dispo: This patient is critically ill with dysfunction of multiple organ systems and is at risk for life threatening deterioration necessitating complex medical decision making and ongoing provision of ICU care. Staff name: Julia Santoro MD Date: 11/02/2018 __ Objective: Medications: Scheduled Meds: ascorbic acid (VITAMIN C) tablet 500 mg 500 mg Per NG tube QDAY aspirin chewable tablet 81 mg 81 mg Per OG Tube QDAY atorvastatin (LIPITOR) tablet 20 mg 20 mg Per OG Tube QHS budesonide respule (PULMICORT) nebulizer solution 0.5 mg 0.5 mg Inhalation BID cefepime (MAXIPIME) 2 g in sodium chloride 0.9% (NS) 100 mL IVPB (MB+) 2 g Intravenous Q8H* [START ON 11/06/2018] cefTRIAXone (ROCEPHIN) IVP 2 g 2 g Intravenous Q12H* chlorhexidine gluconate (PERIDEX) 0.12 % solution 15 mL 15 mL Swish & Spit BID collagenase (SANTYL) topical ointment Topical BID docusate (COLACE) oral solution 100 mg 100 mg Per OG Tube BID famotidine (PEPCID) oral suspension 20 mg 20 mg Per NG tube BID heparin (porcine) PF syringe 5,000 Units 5,000 Units Subcutaneous Q8H melatonin tablet 3 mg 3 mg Oral QHS metoprolol(#) (LOPRESSOR) solution 50 mg 50 mg Feeding Tube BID milk of magnesia (CONC) oral suspension 10 mL 10 mL Per OG Tube QDAY nicotine (NICODERM CQ STEP 1) 21 mg/day patch 1 patch 1 patch Transdermal QDAY( 21) ofloxacin (FLOXIN) 0.3 % (ophthalmic for otic use) solution 4 drop 4 drop Both Ears TID potassium chloride oral solution 20 mEq 20 mEq Per OG Tube QDAY risperiDONE (RISPERDAL) tablet 1 mg 1 mg Oral QHS senna/docusate (SENOKOT-S) solution 10 mL 10 mL Per OG Tube BID sertraline (ZOLOFT) tablet 50 mg 50 mg SEE ADMIN INSTRUCTIONS QHS zinc sulfate capsule 220 mg 220 mg Per NG tube QDAY Continuous Infusions: PRN and Respiratory Meds:acetaminophen Q4H PRN, acetaminophen Q4H PRN, calcium gluconate IV PRN (Heating Operators Engineer from Rx) AND Ionized Calcium PRN AND Notify Physician Ongoing, fentaNYL citrate PF Q1H PRN, ipratropium/albuterol Q4H PRN, magnesium sulfate PRN AND [CANCELED] Magnesium PRN AND Notify Physician Ongoing, oxyCODONE Q4H PRN, pancrelipase 20,000 Units/ sodium bicarbonate 650 mg (#) PRN (Heating Operators Engineer from Rx), potassium chloride SR PRN OR potassium chloride PRN Vital Signs: Last Filed Vital Signs: 24 Hour Range BP: 114/60 (11/02 0900) Temp: 37.2 C (99 F) (11/03 799) Pulse: 106 (11/02 899) Respirations: 20 PER MINUTE (11/02 899) SpO2: 99 % (11/02 899) O2 Delivery: Tracheal Tube (11/02 899) BP: (109-153)/(55-102) Temp: [37.2 C (98.9 F)-37.3 C (99.1 F)] Pulse: [89-134] Respirations: [11 PER MINUTE-27 PER MINUTE] SpO2: [98 %-100 %] O2 Delivery: Tracheal Tube Intensity Pain Scale (Self Report): (not recorded) Vitals: 10/28/18 0500 10/29/18 0500 10/30/18 0400 Weight: 52.6 kg (115 lb 15.4 oz) 51.7 kg (113 lb 15.7 oz) 51.5 kg (113 lb 8.6 oz ) Intake/Output Summary: (Last 24 hours) Intake/Output Summary (Last 24 hours) at 11/02/2018 1059 Last data filed at 11/02/2018 0900 Gross per 24 hour Intake 100 ml Output 1690 ml Net -1590 ml Physical Exam: Eyes open, alert, NAD FF commands x 4 Appears to nod and mouth words appropriately RRR, no murmur CTA B/L Abd S, NT +BS Ext warm, no edema - saphenous graft sites well healed Artificial airway: Tracheostomy Tube Ventilator/ Respiratory Therapy: Yes: NIF: [-40 cm H2O] Weaning Minute Volume (L/min): [7.57 L/min] Weaning Tidal Vol (mL) (Calc.): [315 mL] $$ Vital Capacity (mL): [753 ml] Weaning Respiratory Rate: [24 breaths/min] RSBI (Calculated): [76] Mode: PS/CPAP Tidal Volume Spont (mL): [309 milliliters-387 milliliters] Total Respiratory Rate (Breaths/Min): [19 breaths/minutes-27 breaths/minutes] Minute Volume (L/min): [6.59 liters/minutes-9.59 liters/minutes] O2%: [40 %] PIP Actual: [11 cm H20] PEEP/CPAP: [5 cm H2O] PSupport: [5 cm H20] Vent weaning trial: Per protocol Lab Review: Pertinent labs reviewed Point of Care Testing: (Last 24 hours): Radiology and Other Diagnostic Procedures Review: Pertinent radiology reviewed. Julia Santoro MD 11/02/2018 Pager: [phone] * Kiara Herman APRN - 11/02/2018 8:45 AM CDT Interventional Radiology Progress Note Today's Date: 11/02/2018 Name: Etelvina Alonso Admission Date: 10/19/2018 LOS: 14 days Subjective: Post-Procedural Day: 1 Etelvina Alonso is a 58 y.o. female s/p PEG tube insertion. Overnight Events:No new events noted . Pain is well controlled, she reports pain and tenderness around the site. Pt denies nausea, vomiting, bloating, fever, and chills. Assessment/Plan: Hgb and vital signs stable. No current abdominal distention or abnormal bleeding. May disconnect gravity drainage bag and begin water bolus trial (50mL q 2 hrs x 12 hrs). If pt's tolerates boluses well without abdominal distention, pain, or vomiting feedings may begin per hospital protocol. Ensure adequate flush of G- tube with 50ml of water after each feeding. Clean site with soap and water daily and PRN. May place drain sponge dressing if desired. Please notify IR POWDER AND PRIMER CANNING LEADER for excessive bleeding/redness/drainage noted from insertion site or if pt is experiencing vomiting or excessive abd pain believed to be r/t G tube. T- fasteners (white buttons surrounding PEG tube) have dissolving sutures that will allow fasteners to fall off within 10-14 days p procedure. Thank you for allowing us to participate in this patient's care. Please page with questions. If paging after hours or on weekends, please page IR resident on -call at [phone] Problem List: Active Problems: Pneumonia due to infectious organism Acute respiratory failure with hypoxia and hypercapnia (HCC) Altered mental status, unspecified Paroxysmal atrial fibrillation (HCC) Pneumocephalus Cerebritis Influenza A Abscess of brain Hypertension, essential Hyperlipidemia CAD (coronary artery disease) COPD (chronic obstructive pulmonary disease) (HCC) Depression Objective: Patient is resting on vent. Slight pain around site. Discussed with patient this was normal. Medications:Scheduled Meds: ascorbic acid (VITAMIN C) tablet 500 mg 500 mg Per NG tube QDAY aspirin chewable tablet 81 mg 81 mg Per OG Tube QDAY atorvastatin (LIPITOR) tablet 20 mg 20 mg Per OG Tube QHS budesonide respule (PULMICORT) nebulizer solution 0.5 mg 0.5 mg Inhalation BID cefepime (MAXIPIME) 2 g in sodium chloride 0.9% (NS) 100 mL IVPB (MB+) 2 g Intravenous Q8H* [START ON 11/06/2018] cefTRIAXone (ROCEPHIN) IVP 2 g 2 g Intravenous Q12H* chlorhexidine gluconate (PERIDEX) 0.12 % solution 15 mL 15 mL Swish & Spit BID collagenase (SANTYL) topical ointment Topical BID docusate (COLACE) oral solution 100 mg 100 mg Per OG Tube BID famotidine (PEPCID) oral suspension 20 mg 20 mg Per NG tube BID heparin (porcine) PF syringe 5,000 Units 5,000 Units Subcutaneous Q8H melatonin tablet 3 mg 3 mg Oral QHS metoprolol(#) (LOPRESSOR) solution 50 mg 50 mg Feeding Tube BID milk of magnesia (CONC) oral suspension 10 mL 10 mL Per OG Tube QDAY nicotine (NICODERM CQ STEP 1) 21 mg/day patch 1 patch 1 patch Transdermal QDAY( 21) ofloxacin (FLOXIN) 0.3 % (ophthalmic for otic use) solution 4 drop 4 drop Both Ears TID ondansetron (ZOFRAN) injection 4 mg 4 mg Intravenous ONCE potassium chloride oral solution 20 mEq 20 mEq Per OG Tube QDAY risperiDONE (RISPERDAL) tablet 1 mg 1 mg Oral QHS senna/docusate (SENOKOT-S) solution 10 mL 10 mL Per OG Tube BID sertraline (ZOLOFT) tablet 50 mg 50 mg SEE ADMIN INSTRUCTIONS QHS zinc sulfate capsule 220 mg 220 mg Per NG tube QDAY Continuous Infusions: PRN and Respiratory Meds:acetaminophen Q4H PRN, acetaminophen Q4H PRN, calcium gluconate IV PRN (Heating Operators Engineer from Rx) AND Ionized Calcium PRN AND Notify Physician Ongoing, fentaNYL citrate PF Q1H PRN, ipratropium/albuterol Q4H PRN, magnesium sulfate PRN AND [CANCELED] Magnesium PRN AND Notify Physician Ongoing, oxyCODONE Q4H PRN, pancrelipase 20,000 Units/ sodium bicarbonate 650 mg (#) PRN (Heating Operators Engineer from Rx), potassium chloride SR PRN OR potassium chloride PRN Vital Signs: Last Filed Vital Signs: 24 Hour Range BP: 128/102 (11/02 699) Temp: 37.2 C (99 F) (11/020) Pulse: 114 (11/02 837) Respirations: 22 PER MINUTE (11/02 837) SpO2: 99 % (11/02 837) O2 Delivery: Tracheal Tube (11/02 699) SpO2 Pulse: 133 (11/02 699) BP: (109-153)/(53-102) Temp: [37.2 C (98.9 F)-37.3 C (99.1 F)] Pulse: [89-134] Respirations: [11 PER MINUTE-27 PER MINUTE] SpO2: [95 %-100 %] O2 Delivery: Tracheal Tube Intensity Pain Scale (Self Report): (not recorded) Physical Exam General appearance: alert Neurologic: Grossly normal Lungs: non labored on ventilator Heart: regular rate and rhythm, S1, S2 normal, no murmur, click, rub or gallop Abdomen: soft, non-tender. Bowel sounds normal. No masses, no organomegaly Extremities: extremities normal, atraumatic, no cyanosis or edema Drains: PEG Tube present. Dressing C/D/I. Currently tube is flushing and working well. Lab Review Results for orders placed or performed during the hospital encounter of (from the past 24 hour(s)) POTASSIUM Collection Time: 11/01/18 1:53 PM Result Value Ref Range Potassium 5.0 3.5 - 5.1 MMOL/L MAGNESIUM Collection Time: 11/01/18 1:53 PM Result Value Ref Range Magnesium 2.6 1.6 - 2.6 mg/dL IONIZED CALCIUM Collection Time: 11/02/18 3:45 AM Result Value Ref Range Ionized Calcium 1.29 1.0 - 1.3 MMOL/L CBC AND DIFF Collection Time: 11/02/18 3:45 AM Result Value Ref Range White Blood Cells 11.4 (H) 4.5 - 11.0 K/UL RBC 3.65 (L) 4.0 - 5.0 M/UL Hemoglobin 11.1 (L) 12.0 - 15.0 GM/DL Hematocrit 33.9 (L) 36 - 45 % MCV 92.9 80 - 100 FL MCH 30.4 26 - 34 PG MCHC 32.8 32.0 - 36.0 G/DL RDW 13.4 11 - 15 % Platelet Count 739 (H) 150 - 400 K/UL MPV 9.3 7 - 11 FL Neutrophils 68 41 - 77 % Lymphocytes 20 (L) 24 - 44 % Monocytes 9 4 - 12 % Eosinophils 2 0 - 5 % Basophils 1 0 - 2 % Absolute Neutrophil Count 7.70 (H) 1.8 - 7.0 K/UL Absolute Lymph Count 2.20 1.0 - 4.8 K/UL Absolute Monocyte Count 1.00 (H) 0 - 0.80 K/UL Absolute Eosinophil Count 0.20 0 - 0.45 K/UL Absolute Basophil Count 0.20 0 - 0.20 K/UL BASIC METABOLIC PANEL Collection Time: 11/02/18 3:45 AM Result Value Ref Range Sodium 139 137 - 147 MMOL/L Potassium 4.3 3.5 - 5.1 MMOL/L Chloride 102 98 - 110 MMOL/L CO2 26 21 - 30 MMOL/L Anion Gap 11 3 - 12 Glucose 123 (H) 70 - 100 MG/DL Blood Urea Nitrogen 17 7 - 25 MG/DL Creatinine 0.47 0.4 - 1.00 MG/DL Calcium 10.6 8.5 - 10.6 MG/DL eGFR Non >60 >60 mL/min eGFR >60 >60 mL/min MAGNESIUM Collection Time: 11/02/18 3:45 AM Result Value Ref Range Magnesium 2.3 1.6 - 2.6 mg/dL PHOSPHORUS Collection Time: 11/02/18 3:45 AM Result Value Ref Range Phosphorus 4.4 2.0 - 4.5 MG/DL Kiara Herman APRN Pager [phone] * Mica Javed APRN - 11/02/2018 7:08 AM CDT Neuro Critical Care Progress Note Etelvina Alonso Admission Date: 10/19/2018 LOS: 14 days Full Code ASSESSMENT/PLAN Patient Active Problem List Diagnosis Date Noted Hypertension, essential 11/01/2018 Hyperlipidemia 11/01/2018 CAD (coronary artery disease) 11/01/2018 COPD (chronic obstructive pulmonary disease) (HCC) 11/01/2018 Depression 11/01/2018 Pneumocephalus 10/26/2018 Cerebritis 10/26/2018 Influenza A 10/26/2018 Abscess of brain 10/26/2018 Paroxysmal atrial fibrillation (HCC) 10/25/2018 Altered mental status, unspecified 10/20/2018 Pneumonia due to infectious organism 10/19/2018 Acute respiratory failure with hypoxia and hypercapnia (HCC) 10/19/2018 Etelvina Alonso is a 58 y.o. female with history of HTN, HLD, non-healing leg wounds, CAD s/p CABG in 07/2018 who presented to an OSH on 10/16 with shortness of breath and chest pains and found to have a RUL pneumonia. She was intubated on 10/17 2/2 worsening respiratory status and AMS. On 10/19, CTA with R temporal lobe intraparenchymal air and surrounding edema. Transferred to [facility] for escalation of care. Hospital and ICU course: 10/19: [facility] OSH [facility] 10/23: LP 10/26: DC amiodarone. Start spironolactone 12.5mg daily and lasix 20mg daily. Placed flexiseal 10/29: trach placement 10/31: DC Ativan, increase risperidone to 1mg HS, add melatonin 3mg HS. CXR to eval for complaints of SOA. DC central line. 11/01: Lasix 20 mg; PEG placement 11/02: Metoprolol resumed, water flushes per PEG, resume tube feeds at 1900. Thrombocytosis, slight leukocytosis, procal and cdiff sent. Trach change planned for today Neuro/ENT: Encephalopathy Meningitis Right temporal lobe abscess Depression - [id number] - PT/OT - Sertraline HS Sedation/Pain Management: Delirium - PRN fentanyl, oxycodone and tylenol available - Melatonin 3mg HS, risperdal 1 mg HS - Assess for delirium daily Cardiac: HTN HLD CAD s/p CABG in 07/2018 Paroxysmal AF Echo: 35-40%, mitral valve borderline prolapse and regurg no vegetations, Mild TR JYOTSNA:There is a small echogenic mass on the coaptation line of the aortic valve - SBP goal: < 160 - MAP goal > 65 - holding PRODUCTION CONTROL TECHNOLOGIST lisinopril - Resuming metoprolol- Tolerated 50mg this AM- will leave at this dose, continue to eval - continue PRODUCTION CONTROL TECHNOLOGIST atrovastatin and ASA - diuresed 11/01 Respiratory: Acute hypoxic and hypercapneic respiratory failure on mechanical ventilation S/p Trach placement 10/29 per ENT Chest Xray 10/31:Progressing mixed opacities most apparent in the left perihilar region and left midlung. Persistent cardiomegaly with vascular congestion and small bilateral pleural effusions. - Currently on PS 12/16- will continue with PS open ended - PRODUCTION CONTROL TECHNOLOGIST budesonide - trach to be changed per ENT 11/02 GI: - Feeding: NPO, ResumeIsosource 1.5 @ 50 ml/hr with free water 150 ml every 6 hours at 1900 tonight - start water flushes via PEG 100ml q4hr - Bowel regimen, ensure daily BM(last BM 11/02) - Resend CDiff - Famotidine BID Heme: Thrombocytosis- 2/2 acute illness Normocytic Anemia s/p 1 unit (10/29) - Trend daily CBC - Hgb 11.1, Plt 739 - Will send procal - SQ Heparin - ASA 81mg ID: Leukocytosis, mild HCAP + Step pneumo bacteremia Influenza A (completed Tamiflu 10/30) LE wounds + Pseudomonas - TMax 37.2 - WBC 11.4 - 11/02: Will check procal and resend stool for CDiff today in light of ongoing thrombocytosis and slight leukocytosis - Cdiff negative 10/24 - LLE wound + pseudomonaas - Blood cultures 10/20 and 10/22 NGTD - Sputum NGTD 10/20 - CSF 10/23 NGTD - ID following appreciate recs - Continue cefepime until 11/05, then switch to Rocephin 2 g IV BID until 11/12 - Ofloxacin drops TID Renal: - BUN 13, Cr 0.43 - Aim for normovolemia Endocrine: - Trend on daily BMP - Blood glucose goal 100-180mg/dl FEN: IVF:None- start water flushes via PEG- TF to resume this evening Electrolyte protocol in place Magnesium goal >2.0, i-Earl goal > 1.0, Potassium goal >4.0 mEq/L Prophylaxis Review: A)GI: [id number] B) Lines:Yes; Central Line; Indication: Frequent blood draws; Type: Internal jugular- Remove today C) Urinary Catheter:No D) Antibiotic Usage:Yes; Infection present or suspected: Lung; Pneumonia E) VTE:Pharmacological prophylaxis; SQ Heparinand Mechanical prophylaxis; Sequential compression device F) Isolation:Droplet G)Seizures:na I) Restraints: Patient assessed for need for restraints. Disposition/Family:Require ICU monitoring Primary service:NEICU Consults: ENT, ID, PT/OT, Dietary, Wound Team SUBJECTIVE Etelvina Alonso is a 58 y.o. female. Overnight Events: Tachycardic overnight, given metoprolol IV. OBJECTIVE Vital Signs: Last Filed Vital Signs: 24 Hour Range BP: 128/102 (11/02 699) Temp: 37.2 C (99 F) (11/02 0400) Pulse: 134 (11/02 699) Respirations: 26 PER MINUTE (11/02 699) SpO2: 100 % (11/02 699) O2 Delivery: Tracheal Tube (11/02 699) BP: (109-153)/(53-102) Temp: [37.2 C (98.9 F)-37.3 C (99.1 F)] Pulse: [89-134] Respirations: [11 PER MINUTE-27 PER MINUTE] SpO2: [95 %-100 %] O2 Delivery: Tracheal Tube Intensity Pain Scale (Self Report): (not recorded) Vitals: 10/28/18 0500 10/29/18 0500 10/30/18 0400 Weight: 52.6 kg (115 lb 15.4 oz) 51.7 kg (113 lb 15.7 oz) 51.5 kg (113 lb 8.6 oz ) Artificial airway: Tracheostomy Tube Ventilator/ Respiratory Therapy: Yes: NIF: [-40 cm H2O] Weaning Minute Volume (L/min): [7.57 L/min] Weaning Tidal Vol (mL) (Calc.): [315 mL] $$ Vital Capacity (mL): [753 ml] Weaning Respiratory Rate: [24 breaths/min] RSBI (Calculated): [76] Mode: PS/CPAP Tidal Volume Spont (mL): [309 milliliters-387 milliliters] Total Respiratory Rate (Breaths/Min): [19 breaths/minutes-27 breaths/minutes] Minute Volume (L/min): [6.59 liters/minutes-9.59 liters/minutes] O2%: [40 %] PIP Actual: [11 cm H20] PEEP/CPAP: [5 cm H2O] PSupport: [5 cm H20] Vent weaning trial: PS (Pressure Support) + 5 cmH2O Lines: Peripheral Line Drains: None Intake/Output Summary: (Last 24 hours) Intake/Output Summary (Last 24 hours) at 11/02/2018 0708 Last data filed at 11/02/2018 0400 Gross per 24 hour Intake 130 ml Output 1975 ml Net -1845 ml Stool Occurrence: 1 Physical Exam: Blood pressure (!) 128/102, pulse (!) 134, temperature 37.2 C (99 F), height 162.6 cm (64"), weight 51.5 kg (113 lb 8.6 oz), SpO2 100 %. Daily coma score: E: 4 - Opens eyes on own M: 5- Localizes to pain V: 1 - Makes no noise Neuro: Mental Status:Alert&Oriented x 3, remains with trach Cranial Nerves: - Pupil exam: Size: R - 3mm, L - 4mmReactivity: brisk - Corneal reflex: R- presentL- present - Grimace/facial movement: present - Cough: present Motor: Moves all extremities spontaneously and to command 5/5 Lungs:clear to auscultation bilaterally Pulmonary:Respiratory status:Stableon mechanical ventilation Heart:S1, S2 normal Abdomen:soft, non-tender. Bowel sounds normal. No masses, no organomegaly Extremities:extremities normal, atraumatic, no cyanosis or edema Skin:Skin color, texture, turgor normal. No rashes or lesions Point of Care Testing: (Last 24 hours) Lab Review: Pertinent labs reviewed Radiology and Other Diagnostic Procedures Review: Pertinent radiologic and diagnostic procedures reviewed. Mica Javed APRN Date: 11/02/[phone] I spent 45 minutes managing the care of this patient. Mrs. Alonso is critically ill with: R temporal lobe abscess, encephalopathy, bacteremia, HCAP, HTN, CAD, respiratory failure. Cares included: detailed neurologic and systems exam, medication review, laboratory data review and interpretation, electrolyte management, review of available imaging, DVT/PE prophylaxis review, diet review , activity review, mechanical ventilation and sedation management, and coordination of care with consulted teams * Benny Sepulveda MD - 11/02/2018 7:04 AM CDT Infectious Disease Progress Note Name: Etelvina Alonso Today's Date: 11/02/2018 Admission Date: 10/19/2018 Consulted for Cerebritis suspected Type of consult: Co-management w/signed orders Assessment: Strep pneumo bacteremia Bilateral LE wounds due to CABG vein harvest, both tracking deep, L with purulent drainage Pneumocephalus with surrounding edema on CTA head 10/19/18 at OSH, cerebritis, possible developing abscess in basal right temporal lobe on MRI head 10/20/18 Influenza A with possible HCAP Acute hypoxic/hypercarbic respiratory failure, s/p tracheostomy 10/29/18 S/p mastoidectomy on the right, bilateral myringotomy w/tympanostomy tube placement 10/29/18 -Past concern for biliateral LE wound infection as below -10/16 presented to [facility] with a few days of fever, cough -10/16/18: BC x 2 Strep Pneumo R- Clindamycin and erythromcyin S: ceftriaxone ( MARCY 0.094), PCN (MARCY 0.064), levo, TMP/S, vanc. Rapid Flu Ag negative. MRSA nasal screen negative. 10/17/18: Sputum culture: Yeast and normal chelsey -Rapid mental status deterioration, intubated -CTA head 10/19/18 at OSH, small area of intraparenchymal air above the mastoid air cells and some edema around that area, with concern for possible infection. Pt was transferred to for further management -10/19: CXR patchy mixed alveolar and interstitial opacities -10/20: Tracheal aspirate: < 10 PMN, < 10 squam, no orgs. Moderate growth no significant chelsey -10/20: LLE swab: Pseudomonas aeruginosa (R - meropenem, ceftazidime, pip/tazo; S - cefepime, tobramycin, gentamicin, ceftolozane/tazobactam and ceftazidime/ avibactam) -10/20: MRI head w/wo: Ovoid focus of diffusion restriction and partial rim enhancement in the basal right temporal lobe overlying the tegmen suggestive of focal cerebritis and developing abscess. Dependent diffusion restricting material within the lateral ventricles suspicious for ventriculitis. Thin complex left posterolateral convexity subdural fluid collection with diffusion restriction suggestive of thin subdural empyema. -10/23: JYOTSNA: There is a small echogenic mass on the coaptation line of the aortic valve. Appears to likely be associated with the left coronary cusp. A vegetation cannot be ruled out. 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 No stenosis. No regurgitation. -10/23: CSF - WBCs 23 (86% lymphocytes, 9% mono/histocytes, 3% neutrophils), RBCs 1, glucose 70, protein 70. Cx NGTD -10/30: Finished 10-day course of oseltamivir Echogenic mass seen on AV - 10/23/18 JYOTSNA: There is a small echogenic mass on the coaptation line of the aortic valve. Appears to likely be associated with the left coronary cusp. A vegetation cannot be ruled out. 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 No stenosis. No regurgitation. Concern for bilateral LE wound infection, [facility] Bilateral vein harvest sites on lower extremities from CABG in [facility], 07/2018 Multiple cultures in [facility]. 09/07/18- Culture from R leg incision - Staph aureus MSSA, enterobacter cloace. 09/19/18 L leg pseudomonas R-Aztreonam Throat August and early September 2018 patient received courses of cefdinir, clindamycin, doxycycline, and trimethoprim/sulfa of unclear duration. 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 DEPUTY COURT infection likely S pneumo, which is well covered by the cefepime and also has good DEPUTY COURT penetration. Will tentatively plan for 2 weeks (from 10/23) of cefepime to treat both the LE wound infections and Strep pneumo bacteremia and suspected DEPUTY COURT abscess. Tentative last day of cefepime would be 11/05. -After cefepime she should be transitioned to ceftriaxone 2 g IV BID for meningitis. This would continue until at least 11/12 (4 weeks from 10/16). -Monitor for abx side effects -If on DC pt transfers to [facility], their ID physicians will take over ID care. Benny Sepulveda MD Automation Engineering Technician Division of Infectious Diseases Dr. Benjamin will round on Monday if she remains inpt. For any questions over the weekend please page the ID fellow travel services professional at [phone] Interval History Etelvina Alonso is a 58 y.o. female with a PMH significant for CABG (07/2018) who presented to [facility] in [facility] on 10/16/18 after noting worsening cough and sternal pain from recent sternotomy and non-healing LE graft sites. Transferred to [facility] on 10/19/18 for right temporal lobe intraparenchymal air and edema seen on CTA. Feels good, pain and anxiety well controlled. No n/v. No f/c/diaphoresis. Afebrile, PEG placement yesterday. WBC slightly up to 11.4 Cr 0.47, stable. ROS As mentioned in 'Interval History' otherwise 10-point ROS negative Antimicrobial Start date End date Cefepime 10/16/18-10/18/18, 10/23 active Ceftriaxone 10/18/18 10/20/18 Cefedinir 09/23/18 PRODUCTION CONTROL TECHNOLOGIST, uncertain timeframe Doxycycline 100 mg PO BID 09/06/18 PRODUCTION CONTROL TECHNOLOGIST, uncertain timeframe [id number] mg PO BID 08/23/18 PRODUCTION CONTROL TECHNOLOGIST, uncertain timeframe Fluconazole 150 mg PO QD 08/17/18 PRODUCTION CONTROL TECHNOLOGIST, uncertain timeframe Vancomycin 10/20/1810/24 Ampicillin 10/20/18 10/20/18 Fluconazole 10/20/18 10/26/18 Oseltamivir 10/21/1810/30 Meropenem 10/20/1810/23 Bactrim 08/17/18 PRODUCTION CONTROL TECHNOLOGIST, uncertain timeframe Estimated Creatinine Clearance: 72.1 mL/min (based on SCr of 0.47 mg/dL). Cardenas Results 10/24 C diff: negative 10/23 CSF GS/cx: rare neutrophils, no organisms seen, NGTD; WBCs 23 (86% lymphocytes, 9% mono/histocytes, 3% neutrophils), RBCs 1, glucose 70, protein 70 ; HSV PCR negative 10/22 Blood cx: NG 10/20 LLE wound swab: Pseudomonas aeruginosa (R - meropenem, ceftazidime, pip/tazo ; S - cefepime, tobramycin, gentamicin, ceftaz/rachele, ceftolozane/tazo) 10/20 Tracheal aspirate: moderate growth no significant chelsey 10/20 Respiratory PCR panel: (+) influenza A 10/20 Blood cx: NGTD Prior cultures 10/16/18 Blood cx (from [facility]): Strep Pneumo R- Clindamycin and erythromcyin Susceptible: ceftriaxone-dilut method 0.094, levofloxacin, penicillin e-dilut method 0.064, trimethoprim, and vancomycin 09/19/18 L leg: pseudomonas R-Aztreonam 09/07/18 Culture from R leg incision: Staph aureus MSSA, Enterobacter cloace 08/13/18 Sputum cx: Loretta glabrata and dublinesis Medications Scheduled Meds: ascorbic acid (VITAMIN C) tablet 500 mg 500 mg Per NG tube QDAY aspirin chewable tablet 81 mg 81 mg Per OG Tube QDAY atorvastatin (LIPITOR) tablet 20 mg 20 mg Per OG Tube QHS budesonide respule (PULMICORT) nebulizer solution 0.5 mg 0.5 mg Inhalation BID cefepime (MAXIPIME) 2 g in sodium chloride 0.9% (NS) 100 mL IVPB (MB+) 2 g Intravenous Q8H* [START ON 11/06/2018] cefTRIAXone (ROCEPHIN) IVP 2 g 2 g Intravenous Q12H* chlorhexidine gluconate (PERIDEX) 0.12 % solution 15 mL 15 mL Swish & Spit BID collagenase (SANTYL) topical ointment Topical BID docusate (COLACE) oral solution 100 mg 100 mg Per OG Tube BID famotidine (PEPCID) oral suspension 20 mg 20 mg Per NG tube BID heparin (porcine) PF syringe 5,000 Units 5,000 Units Subcutaneous Q8H melatonin tablet 3 mg 3 mg Oral QHS milk of magnesia (CONC) oral suspension 10 mL 10 mL Per OG Tube QDAY nicotine (NICODERM CQ STEP 1) 21 mg/day patch 1 patch 1 patch Transdermal QDAY( 21) ofloxacin (FLOXIN) 0.3 % (ophthalmic for otic use) solution 4 drop 4 drop Both Ears TID ondansetron (ZOFRAN) injection 4 mg 4 mg Intravenous ONCE potassium chloride oral solution 20 mEq 20 mEq Per OG Tube QDAY risperiDONE (RISPERDAL) tablet 1 mg 1 mg Oral QHS senna/docusate (SENOKOT-S) solution 10 mL 10 mL Per OG Tube BID sertraline (ZOLOFT) tablet 50 mg 50 mg SEE ADMIN INSTRUCTIONS QHS zinc sulfate capsule 220 mg 220 mg Per NG tube QDAY Continuous Infusions: PRN and Respiratory Meds:acetaminophen Q4H PRN, acetaminophen Q4H PRN, calcium gluconate IV PRN (Heating Operators Engineer from Rx) AND Ionized Calcium PRN AND Notify Physician Ongoing, fentaNYL citrate PF Q1H PRN, ipratropium/albuterol Q4H PRN, magnesium sulfate PRN AND [CANCELED] Magnesium PRN AND Notify Physician Ongoing, oxyCODONE Q4H PRN, pancrelipase 20,000 Units/ sodium bicarbonate 650 mg (#) PRN (Heating Operators Engineer from Rx), potassium chloride SR PRN OR potassium chloride PRN Physical Examination Vital Signs: Last Vital Signs: 24 Hour Range BP: 128/102 (11/02 699) Temp: 37.2 C (99 F) (11/02 0400) Pulse: 134 (11/02 699) Respirations: 26 PER MINUTE (11/02 699) SpO2: 100 % (11/02 699) O2 Delivery: Tracheal Tube (11/02 699) SpO2 Pulse: 133 (11/02 699) BP: (109-153)/(53-102) Temp: [37.2 C (98.9 F)-37.3 C (99.1 F)] Pulse: [89-134] Respirations: [11 PER MINUTE-27 PER MINUTE] SpO2: [95 %-100 %] O2 Delivery: Tracheal Tube General appearance: alert and nodding appropriately to questions H&N: mucus membranes moist; trach in place Lungs: clear breath sounds on anterior auscultation Heart: normal rate; no murmurs appreciated Abdomen: soft, non-tender, non-distended, normoactive bowel sounds, G-tube in place Ext: healing ulcerations on medial aspect of R and L extremities from prior vein grafting. Sig improved from admission. Skin: no rash Msk: no joint swelling or redness Lines/drains/tubes: Trach, G tube (11/01/18); PIV x2 Laboratory Hematology Recent Labs 10/31/18 0250 11/01/18 0415 11/02/18 0345 WBC 11.1* 8.5 11.4* HGB 8.9* 11.4* 11.1* HCT 26.1* 35.0* 33.9* PLTCT 545* 588* 739* Chemistry Recent Labs 10/31/18 0250 11/01/18 0415 11/01/18 1353 11/02/18 0345 NA 139 138 -- 139 K 4.3 4.0 5.0 4.3 CL 108 105 -- 102 CO2 27 23 -- 26 BUN 14 13 -- 17 CR 0.43 0.43 -- 0.47 GFR >60 >60 -- >60 GLU 126* 109* -- 123* CA 9.5 10.2 -- 10.6 PO4 5.8* 4.4 -- 4.4 Microbiology, Radiology and other Diagnostics Review Microbiology reviewed. Pertinent radiology reviewed. Complexity of medical decision making is high due to the multi-system nature of the infectious disease process or potential for limb-threatening infection as well as concerns including but not limited to complexity of the patient's underlying illnesses, the identification and sensitivities of the organisms being treated, the potential for antimicrobial toxicities and drug-drug interactions, concerns regarding immunologic function, and interplay of other issues. Meningitis, brain abscess, lab and imaging review, summary of old records, intensive abx monitoring. * Juvenal Gottlieb MD - 11/02/2018 6:51 AM CDT CLEMENTINE/HNS PROGRESS NOTE Today's Date: 11/02/2018 Admission Date: 10/19/2018 LOS: 14 days Subjective No acute events overnight. Remains on ventilator, but awake this AM. Following commands appropriately. Objective Vital Signs: Last Filed Vital Signs: 24 Hour Range BP: 118/83 (11/02 599) Temp: 37.2 C (99 F) (11/02 0400) Pulse: 113 (11/02 608) Respirations: 23 PER MINUTE (11/02 06) SpO2: 99 % (11/02 608) O2 Delivery: Tracheal Tube (11/02 07) SpO2 Pulse: 123 (11/02 599) BP: (109-153)/(53-100) Temp: [37.2 C (98.9 F)-37.3 C (99.1 F)] Pulse: [88-129] Respirations: [11 PER MINUTE-27 PER MINUTE] SpO2: [95 %-100 %] O2 Delivery: Tracheal Tube Intensity Pain Scale (Self Report): 7 (11/01/181999) Vitals: 10/28/18 0500 10/29/18 0500 10/30/18 0400 Weight: 52.6 kg (115 lb 15.4 oz) 51.7 kg (113 lb 15.7 oz) 51.5 kg (113 lb 8.6 oz ) Intake/Output Summary: (Last 24 hours) Intake/Output Summary (Last 24 hours) at 11/02/2018 0651 Last data filed at 11/02/2018 0400 Gross per 24 hour Intake 130 ml Output 1975 ml Net -1845 ml Stool Occurrence: 1 Physical Exam Trach tube in place, connected to ventilator -- on CPAP NC/AT Face symmetric Postauricular incision c/d/i 6-0 c[address] in place with sutures Respirations regular and unlabored on ventilator (SEPARATE PROCEDURE) Tracheostomy Tube Exchange: After verbal consent was obtained, the patient was laid supine with the neck slightly extended. All existing ties and sutures were removed and the patient' s trachestomy tube was removed after a bougie stylet was inserted as a placeholder. The stoma was suctioned and cleaned and found to be patent. A 6.0 Shiley cuffed tracheostomy tube was then inserted into the stoma over the bougie. The obturator was removed and the inner cannula placed. Soft ties were used to secure the new tracheostomy tube. The patient was returned to a comfortable position. The patient tolerated the procedure without complication. Laboratory: Pertinent labs reviewed Radiology/Imaging: Pertinent radiology reviewed. MRI CT head and IAC reviewed with neuroradiology Repeat MRI 10/26 demonstrates previous right temporal lobe abscess. Patient Active Problem List Diagnosis Date Noted Hypertension, essential 11/01/2018 Hyperlipidemia 11/01/2018 CAD (coronary artery disease) 11/01/2018 COPD (chronic obstructive pulmonary disease) ([facility]) 11/01/2018 Depression 11/01/2018 Pneumocephalus 10/26/2018 Cerebritis 10/26/2018 Influenza A 10/26/2018 Abscess of brain 10/26/2018 Paroxysmal atrial fibrillation (HCC) 10/25/2018 Altered mental status, unspecified 10/20/2018 Pneumonia due to infectious organism 10/19/2018 Acute respiratory failure with hypoxia and hypercapnia ([facility]) 10/19/2018 Assessment/Plan: Etelvina Alonso is a 58 y.o. female with complex medical history including CABG and nonhealing wounds on legs and recent pneumonia. She is admitted for altered mental status and was found to have pneumocephalus and cerebritis on imaging work up with concerns for right temporal lobe overlying the tegmen suggestive of focal cerebritis and developing abscess. She is now s/p R mastoidectomy, bilateral myringotomy with tube placement, and tracheostomy on 10/[address] Burch -- Agree with IV abx per primary -- Continue routine trach care. Tracheostomy changed to 6.0 cuffed Shiley this AM. Patient still requiring positive pressure ventilation. Will need trach supplies (spare 6.0 Shiley and 4.0 Shiley as well as suction machine and spare inner cannulas) prior to discharge. Future trach changes can be performed by RT if comfortable. Can change to cuffless trach when no longer requiring positive pressure. -- Continue otic drops in bilateral ears TID, local wound care with vaseline to postauricular incision -- Agree with continued aggressive medical management -- Patient can follow with Dr. Burch 2 weeks after discharge (ENT team will request appointment) Please page for any questions or concerns. Juvenal Gottlieb MD Otolaryngology Resident, [phone] * Mayda Demarco RN - 11/01/2018 5:03 PM CDT GJ Tube instructions. Vital signs q 15 minutes x 4, q 30 minutes x 2, q 1 hour x 4 then may resume prior order. Bedrest: inpatient [address] g-tube to gravity drainage bag for 12 hours post procedure. Do not flush during this time. Flush g-tube with 50mls of water 12 hours post procedure. Tube feeding may be started 24 hours after procedure if water is tolerated. Flush g-tube with 50ml of water after each feeding. If patient is NPO, flush g-tube with 30-60mL water twice daily to maintain patency. Remove dressing 24-48 hours after g-tube placement. Wash stoma with water and pat dry q day and PRN. May resume showering after g-tube site dressing has been removed. * Mayda Demarco RN - 11/01/2018 4:44 PM CDT Sedation physician present in room. Recent vitals and patient condition reviewed between sedating physician and nurse. Reassessment completed. Determination made to proceed with planned sedation. * Judy Santoro MD - 11/01/2018 12:54 PM CDT NEURO-ENT ICU Critical Care Progress Note Today's Date: 11/01/2018 Name: Etelvina Alonso Admission Date: 10/19/2018 LOS: 13 days ICU problem list: Patient Active Problem List Diagnosis Date Noted Pneumocephalus 10/26/2018 Cerebritis 10/26/2018 Influenza A 10/26/2018 Abscess of brain 10/26/2018 Paroxysmal atrial fibrillation (HCC) 10/25/2018 Altered mental status, unspecified 10/20/2018 Pneumonia due to infectious organism 10/19/2018 Acute respiratory failure with hypoxia and hypercapnia (HCC) 10/19/2018 ATTESTATION Date of Service: 11/01/2018 I have seen, personally fully evaluated, and discussed patient with the Neuro- ENT ICU team. The patient is critically ill after transfer from OSH 10/19 with R temporal lobe intraparenchymal air and surrounding edema concerning for developing abscess. 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 HTN HLD COPD Tobaccoism Acute on chronic anemia I spent 35 minutes (excluding time spent performing or supervising any procedures) providing and personally directing critical care services including -review of serial neurologic, hemodynamic, respiratory, telemetry, laboratory and imaging data -management of fluids/electrolytes, antibiotics, vasoactive medications, gas exchange/mechanical ventilation, sepsis protocol, ICU prophylaxis and ICU core measures -pain/sedation/delirium mgt -medication review and management -organization and coordination of care with patient (or surrogate), ICU team and consulting services. -directing the formulation of the overall plan of care outlined below. Acute hypoxic and hypercapnic respiratory failure, sternal non-union likely contributing to inability to wean vent quickly. Cont SBTs - tolerated PSV for almost a full 24 hours yesterday altho had to be placed on full vent support just briefly this morning (am uncertain what happened - there is no documentation in the chart). Cont PSV today. Suspect acute encephalopathy/delirium/ing may also play a role in vent weaning difficulties as pt had another episode of tachycardia and "panic" on Monday evening that became worse with ativan. Ordered 1mg risperdal and melatonin to be adminstered last night which seemed to be beneficial - no episodes of panic noted and she reportedly slept well - continue again tonight. Ativan has been taken off the OCT. Precedex is also off the OCT - while it works well for her at night, am trying to find a regimen that will be suitable post-ICU discharge. CXR with some pulmonary edema - diurese today. Goal net neg 1L by tomorrow morning. Needs PEG - plan for today. Remainder of plan per CRITICAL POWER INSTALL TECHNICIAN's note. Dispo: This patient is critically ill with dysfunction of multiple organ systems and is at risk for life threatening deterioration necessitating complex medical decision making and ongoing provision of ICU care. Staff name: Julia Santoro MD Date: 11/01/2018 __ Objective: Medications: Scheduled Meds: ascorbic acid (VITAMIN C) tablet 500 mg 500 mg Per NG tube QDAY aspirin chewable tablet 81 mg 81 mg Per OG Tube QDAY atorvastatin (LIPITOR) tablet 20 mg 20 mg Per OG Tube QHS budesonide respule (PULMICORT) nebulizer solution 0.5 mg 0.5 mg Inhalation BID cefepime (MAXIPIME) 2 g in sodium chloride 0.9% (NS) 100 mL IVPB (MB+) 2 g Intravenous Q8H* [START ON 11/06/2018] cefTRIAXone (ROCEPHIN) IVP 2 g 2 g Intravenous Q12H* chlorhexidine gluconate (PERIDEX) 0.12 % solution 15 mL 15 mL Swish & Spit BID collagenase (SANTYL) topical ointment Topical BID docusate (COLACE) oral solution 100 mg 100 mg Per OG Tube BID famotidine (PEPCID) oral suspension 20 mg 20 mg Per NG tube BID heparin (porcine) PF syringe 5,000 Units 5,000 Units Subcutaneous Q8H melatonin tablet 3 mg 3 mg Oral QHS milk of magnesia (CONC) oral suspension 10 mL 10 mL Per OG Tube QDAY nicotine (NICODERM CQ STEP 1) 21 mg/day patch 1 patch 1 patch Transdermal QDAY( 21) ofloxacin (FLOXIN) 0.3 % (ophthalmic for otic use) solution 4 drop 4 drop Both Ears TID ondansetron (ZOFRAN) injection 4 mg 4 mg Intravenous ONCE potassium chloride oral solution 20 mEq 20 mEq Per OG Tube QDAY risperiDONE (RISPERDAL) tablet 1 mg 1 mg Oral QHS senna/docusate (SENOKOT-S) solution 10 mL 10 mL Per OG Tube BID sertraline (ZOLOFT) tablet 50 mg 50 mg SEE ADMIN INSTRUCTIONS QHS zinc sulfate capsule 220 mg 220 mg Per NG tube QDAY Continuous Infusions: PRN and Respiratory Meds:acetaminophen Q4H PRN, calcium gluconate IV PRN (Heating Operators Engineer from Rx) AND Ionized Calcium PRN AND Notify Physician Ongoing, fentaNYL citrate PF Q1H PRN, ipratropium/albuterol Q4H PRN, magnesium sulfate PRN AND [CANCELED] Magnesium PRN AND Notify Physician Ongoing, oxyCODONE Q4H PRN, pancrelipase 20,000 Units/ sodium bicarbonate 650 mg(#) PRN ( Heating Operators Engineer from Rx), potassium chloride SR PRN OR potassium chloride PRN Vital Signs: Last Filed Vital Signs: 24 Hour Range BP: 117/74 (11/01 1200) Temp: 37.2 C (99 F) (11/01 1200) Pulse: 117 (11/01 1200) Respirations: 17 PER MINUTE (11/02 1199) SpO2: 98 % (11/02 1199) O2 Delivery: Tracheal Tube (11/01 0700) BP: (92-158)/(42-100) Temp: [37.1 C (98.7 F)-37.2 C (99 F)] Pulse: [86-123] Respirations: [17 PER MINUTE-33 PER MINUTE] SpO2: [95 %-100 %] O2 Delivery: Tracheal Tube Intensity Pain Scale (Self Report): 0 (11/01/18 1200) Vitals: 10/28/18 0500 10/29/18 0500 10/30/18 0400 Weight: 52.6 kg (115 lb 15.4 oz) 51.7 kg (113 lb 15.7 oz) 51.5 kg (113 lb 8.6 oz ) Intake/Output Summary: (Last 24 hours) Intake/Output Summary (Last 24 hours) at 11/01/2018 1254 Last data filed at 11/01/2018 1200 Gross per 24 hour Intake 1719 ml Output 2035 ml Net -316 ml Physical Exam: Eyes open, alert, NAD FF commands x 4 Appears to nod appropriately RRR, no murmur CTA B/L Abd S, NT +BS Ext warm, no edema - saphenous graft sites well healed Artificial airway: Tracheostomy Tube Ventilator/ Respiratory Therapy: Yes: Mode: PS/CPAP Tidal Volume Spont (mL): [336 milliliters-420 milliliters] Total Respiratory Rate (Breaths/Min): [22 breaths/minutes-33 breaths/minutes] Minute Volume (L/min): [8.28 liters/minutes-13.3 liters/minutes] O2%: [40 %] PIP Actual: [11 cm H20] PEEP/CPAP: [5 cm H2O] PSupport: [5 cm H20] Vent weaning trial: Per protocol Lab Review: Pertinent labs reviewed Point of Care Testing: (Last 24 hours): Radiology and Other Diagnostic Procedures Review: Pertinent radiology reviewed. Julia Santoro MD 11/01/2018 Pager: [phone] * Elenita Butler OT - 11/01/2018 11:22 AM CDT OCCUPATIONAL THERAPY PROGRESS NOTE Patient Name: Etelvina Alonso Room/Bed: [place] [address] Admitting Diagnosis: altered mental status Mobility Progressive Mobility Level: Stand Distance Walked (feet): 3 ft(sidesteps) Level of Assistance: Assist X2 Assistive Device: Hand Held Activity Limited By: Lines / Medical Devices;Fatigue;Weakness Subjective Pertinent Dx per Physician: HTN, HLD, no nhealing leg wounds, CAD s/p CABG in in [place] who presented to an OSH on 10/16 with shortness of breath and chest pains and found to have a RUL pneumonia. She was intubated on 10/17 2/2 worsening respiratory status and AMS. Workup showed cerebritis, tegmen dehisence , encephalocele, possible temporal lobe abscess. Sternal nonunion, 2 loosened sternal wires, nonop per CTS. s/p trach, B myringotomy and tube placement, R mastoidectomy 10/29 Precautions: Falls;NPO Comments: Pt reports mild pain at trach site. Asked for and recieved pain medications at end of session. Objective Psychosocial Status: Willing and Cooperative to Participate Persons Present: Physical Therapist Vision Current Vision: Wears Glasses All of the Time ADL's Grooming Assist: Minimal Assist Grooming Deficits: Wash/Dry Face(to maneuver around corpak) LE Dressing Assist: Stand By Assist LE Dressing Deficits: Don/Doff R Sock;Don/Doff L Sock Comment: Pt standby assist for bed mobility, minimal assist for standing, second person managing vent tubing. Pt took sidesteps with minimal assist, sat to rest, then took sidesteps again. Some difficulty timing the advancement of LLE but able to do under her own power. Returned to bed end of session 2* to plan for IR shortly. Activity Tolerance Endurance: 3/5 Tolerates 25-30 Minutes Exercise w/Multiple Rests Sitting Balance: 2+/5 Supports Self w/ 1 UE Ventilator settings Ventilator Mode FiO2 (%) PEEP Pressure Support SpO2 (%) Respiratory Rate (RR) Location of Endotracheal tube (ETT) at the gums CPAP 40 5 5 Pre Activity:99 During Activity:99 Post Activity:99 Pre Activity:29 During Activity:33 Post Activity:29 trach AM-PAC 6 Clicks Daily Activity Inpatient Putting on and taking off regular lower body clothes?: Total Bathing (Including washing, rinsing, drying): Total Toileting, which includes using toilet, bedpan, or urinal: Total Putting on and taking off regular upper body clothing: Total Taking care of personal grooming such as brushing teeth: Total Eating meals?: Total Daily Activity Raw Score: 6 Standardized (t-scale) score: 17.07 CMS 0-100% Score: 100 CMS G Code Modifier: CN Plan OT Frequency: 5x/week OT Plan for Next Visit: upright tolerance, grooming chair or stand level, transfers, vent walk with PT? ADL Goals Patient Will Perform Grooming: w/ Minimum Assist;in Chair Patient Will Perform LE Dressing: w/ Minimum Assist Other ADL Goal 1: Pt to sit edge of bed with minimal assist X3 minutes with stable vitals(MET) Functional Transfer Goals Pt Will Perform All Functional Transfers: Minimum Assist Pt Will Transfer To Bedside Commode: w/ Minimum Assist Arm Goals Pt Will Perform AROM: 10 Reps(all planes of motion with stable vitals) OT Discharge Recommendations OT Discharge Recommendations: Inpatient Setting Equipment Recommendations: Too early to be determined Therapist: Elenita Butler OT Date: 11/01/2018 * Louise Hennessy, PT - 11/01/2018 11:17 AM CDT PHYSICAL THERAPY PROGRESS NOTE MOBILITY: Mobility Progressive Mobility Level: Stand Distance Walked (feet): 3 ft(sidesteps) Level of Assistance: Assist X2 Assistive Device: Hand Held Activity Limited By: Lines / Medical Devices;Fatigue;Weakness SUBJECTIVE: Subjective Significant hospital events: Presented to an OSH on 10/16 with shortness of breath and chest pains and found to have a RUL pneumonia. She was intubated on 2/2 worsening respiratory status and AMS. On 10/19, CTA with R temporal lobe intraparenchymal air and surrounding edema. Transferred to [facility] for escalation of care. Flail sternum and pna contributed to difficulty weaning vent. Repeat MRI showed right inferior temporal cerebritis that has coalesced into an abscess. Bilateral myringotomy and tube, Mastoidectomy, and Tracheostomy on . Mental / Cognitive Status: Alert;Cooperative;Follows Commands;Ventilator; Tracheostomy Persons Present: Occupational Therapist Pain: Patient has no complaint of pain Ambulation Assist: Independent Mobility in Community without Device Home Situation: Lives with Family Ventilator settings Ventilator Mode FiO2 (%) PEEP Pressure Support SpO2 (%) Respiratory Rate (RR) Location of Endotracheal tube (ETT) at the [facility] CPAP 40 5 5 Pre Activity:99 During Activity:99 Post Activity:99 Pre Activity:29 During Activity:33 Post Activity:29 trach ROM: ROM LE ROM WFL: Yes STRENGTH: Strength Overall Strength: WFL BED MOBILITY/TRANSFERS: Bed Mobility/Transfers Bed Mobility: Supine to Sit: Minimal Assist;Assist with Trunk Bed Mobility: Sit to Supine: Minimal Assist;of 1st person;Safety Considerations; of 2nd person Comments: Tolerated sitting egde of bed with standby assist Transfer Type: Sit to Stand Transfer: Assistance Level: To/From;Bed;Minimal Assist(second person for ventilator management. ) Transfer: Assistive Device: Hand Hold Assist Transfers: Type Of Assistance: For Balance;For Strength Deficit;For Safety Considerations End Of Activity Status: In Bed;Nursing Notified;Instructed Patient to Request Assist with Mobility;Instructed Patient to Use Call Light(bed alarm on) Comments: Patient able to perform sit to stand transfer x 2 trials with minimal assist of first person and second person for vent management. Able to take 2 steps forward and back and able to take 6 side steps to head of bed with minimal assist. Slower to advance L foot but imporved from previous session. BALANCE: Balance Sitting Balance: Static Sitting Balance;Standby Assist;1 UE Support(few periods of minimal assist ) Standing Balance: Static Standing Balance;2 UE support;Minimal Assist GAIT: Gait Gait Distance: 3 feet Gait: Assistance Level: Minimal Assist;of 1st person;Safety Considerations;of 2nd person Gait: Assistive Device: Hand Hold Assist Gait: Descriptors: Pace: Slow;Decreased step length;No balance loss Comments: Patient ambulated 2 steps forward and back and able to take side steps to head of bed. Activity Limited By: Complaint of Fatigue;Weakness Comments: All vital signs stable throughout treatment. ACTIVITY/EXERCISE: Activity / Exercise Sit Edge Of Bed: 12 minutes Sit Edge Of Bed Assist: Stand By Assist;Minimal Assist Stand At Bedside : 2 minutes Stand At Bedside Assist: Minimal Assist EDUCATION: Education Persons Educated: Patient Patient Barriers To Learning: Anxiety Interventions: Repetition of Instructions Teaching Methods: Verbal Instruction Patient Response: More Instruction Required Topics: Plan/Goals of PT Interventions;Importance of Increasing Activity; Recommend Continued Therapy ASSESSMENT/PROGRESS: Assessment/Progress Impaired Mobility Due To: Decreased Activity Tolerance;Medical Status Limitation Assessment/Progress: Should Improve w/ Continued PT AM-PAC 6 Clicks Basic Mobility Inpatient Turning from your back to your side while in a flat bed without using bed rails : A Little Moving from lying on your back to sitting on the side of a flatbed without using bedrails : A Little Moving to and from a bed to a chair (including a wheelchair): A Little Standing up from a chair using your arms (e.g. wheelchair, or bedside chair): A Little To walk in hospital room: A Lot Climbing 3-5 steps with a railing: Total Raw Score: 15 Standardized (T-scale) Score: 36.97 Basic Mobility CMS 0-100%: 50.4 CMS G Code Modifier for Basic Mobility: CK GOALS: Goals Goal Formulation: With Patient Time For Goal Achievement: 5 days Patient Will Go Supine To/From Sit: w/ Stand By Assist Patient Will Transfer Bed/Chair: w/ Minimal Assist PLAN: Plan Treatment Interventions: Mobility Training;Strengthening Plan Frequency: 5 Days per Week PT Plan for Next Visit: Work on bed to chair transfers. Trial vent walk as patient tolerance allows RECOMMENDATIONS: PT Discharge Recommendations PT Discharge Recommendations: Inpatient Setting;Recommend Physical Medicine and Rehabilitation Consult to address most appropriate level of rehabilitation placement Therapist: Louise Hennessy, PT Date: 11/01/2018 * Benny Sepulveda MD - 11/01/2018 9:21 AM CDT Infectious Disease Progress Note Name: Etelvina Alonso Today's Date: 11/01/2018 Admission Date: 10/19/2018 Consulted for Cerebritis suspected Type of consult: Co-management w/signed orders Assessment: Strep pneumo bacteremia Bilateral LE wounds due to CABG vein harvest, both tracking deep, L with purulent drainage Pneumocephalus with surrounding edema on CTA head 10/19/18 at OSH, cerebritis, possible developing abscess in basal right temporal lobe on MRI head 10/20/18 Influenza A with possible HCAP Acute hypoxic/hypercarbic respiratory failure, s/p tracheostomy 10/29/18 S/p mastoidectomy on the right, bilateral myringotomy w/tympanostomy tube placement 10/29/18 -Past concern for biliateral LE wound infection as below -10/16 presented to [facility] with a few days of fever, cough -10/16/18: BC x 2 Strep Pneumo R- Clindamycin and erythromcyin S: ceftriaxone ( MARCY 0.094), PCN (MARCY 0.064), levo, TMP/S, vanc. Rapid Flu Ag negative. MRSA nasal screen negative. 10/17/18: Sputum culture: Yeast and normal chelsey -Rapid mental status deterioration, intubated -CTA head 10/19/18 at OSH, small area of intraparenchymal air above the mastoid air cells and some edema around that area, with concern for possible infection. Pt was transferred to for further management -10/19: CXR patchy mixed alveolar and interstitial opacities -10/20: Tracheal aspirate: < 10 PMN, < 10 squam, no orgs. Moderate growth no significant chelsey -10/20: LLE swab: Pseudomonas aeruginosa (R - meropenem, ceftazidime, pip/tazo; S - cefepime, tobramycin, gentamicin, ceftolozane/tazobactam and ceftazidime/ avibactam) -10/20: MRI head w/wo: Ovoid focus of diffusion restriction and partial rim enhancement in the basal right temporal lobe overlying the tegmen suggestive of focal cerebritis and developing abscess. Dependent diffusion restricting material within the lateral ventricles suspicious for ventriculitis. Thin complex left posterolateral convexity subdural fluid collection with diffusion restriction suggestive of thin subdural empyema. -10/23: JYOTSNA: There is a small echogenic mass on the coaptation line of the aortic valve. Appears to likely be associated with the left coronary cusp. A vegetation cannot be ruled out. 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 No stenosis. No regurgitation. -10/23: CSF - WBCs 23 (86% lymphocytes, 9% mono/histocytes, 3% neutrophils), RBCs 1, glucose 70, protein 70. Cx NGTD -10/30: Finished 10-day course of oseltamivir Echogenic mass seen on AV - 10/23/18 JYOTSNA: There is a small echogenic mass on the coaptation line of the aortic valve. Appears to likely be associated with the left coronary cusp. A vegetation cannot be ruled out. 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 No stenosis. No regurgitation. Concern for bilateral LE wound infection, [facility] Bilateral vein harvest sites on lower extremities from CABG in [facility], 07/2018 Multiple cultures in [facility]. 09/07/18- Culture from R leg incision - Staph aureus MSSA, enterobacter cloace. 09/19/18 L leg pseudomonas R-Aztreonam Throat August and early September 2018 patient received courses of cefdinir, clindamycin, doxycycline, and trimethoprim/sulfa of unclear duration. 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 DEPUTY COURT infection likely S pneumo, which is well covered by the cefepime and also has good DEPUTY COURT penetration. Will tentatively plan for 2 weeks (from 10/23) of cefepime to treat both the LE wound infections and Strep pneumo bacteremia and suspected DEPUTY COURT abscess. Tentative last day of cefepime would be 11/05. -After cefepime she could be transitioned to ceftriaxone 2 g IV BID for meningitis. This would continue until at least 11/12 (4 weeks from 10/16). -Monitor for abx side effects -If on DC pt transfers to [facility], their ID physicians will take over ID care. Benny Sepulveda MD Automation Engineering Technician Division of Infectious Diseases Interval History Etelvina Alonso is a 58 y.o. female with a PMH significant for CABG (07/2018) who presented to [facility] in [facility] on 10/16/18 after noting worsening cough and sternal pain from recent sternotomy and non-healing LE graft sites. Transferred to [facility] on 10/19/18 for right temporal lobe intraparenchymal air and edema seen on CTA. Seen this AM lying in bed on vent via trach. Denied any subjective fevers or chills, sweats, n/v, diarrhea, or rashes. Anxiety intermittently continues. Afebrile WBC 8.5, WNL Cr 0.43 ROS As mentioned in 'Interval History' otherwise 10-point ROS negative Antimicrobial Start date End date Cefepime 10/16/18-10/18/18, 10/23 active Ceftriaxone 10/18/18 10/20/18 Cefedinir 09/23/18 PRODUCTION CONTROL TECHNOLOGIST, uncertain timeframe Doxycycline 100 mg PO BID 09/06/18 PRODUCTION CONTROL TECHNOLOGIST, uncertain timeframe [id number] mg PO BID 08/23/18 PRODUCTION CONTROL TECHNOLOGIST, uncertain timeframe Fluconazole 150 mg PO QD 08/17/18 PRODUCTION CONTROL TECHNOLOGIST, uncertain timeframe Vancomycin 10/20/1810/24 Ampicillin 10/20/18 10/20/18 Fluconazole 10/20/18 10/26/18 Oseltamivir 10/21/1810/30 Meropenem 10/20/1810/23 Bactrim 08/17/18 PRODUCTION CONTROL TECHNOLOGIST, uncertain timeframe Estimated Creatinine Clearance: 72.1 mL/min (based on SCr of 0.43 mg/dL). Cardenas Results 10/24 C diff: negative 10/23 CSF GS/cx: rare neutrophils, no organisms seen, NGTD; WBCs 23 (86% lymphocytes, 9% mono/histocytes, 3% neutrophils), RBCs 1, glucose 70, protein 70 ; HSV PCR negative 10/22 Blood cx: NG 10/20 LLE wound swab: Pseudomonas aeruginosa (R - meropenem, ceftazidime, pip/tazo ; S - cefepime, tobramycin, gentamicin, ceftaz/rachele, ceftolozane/tazo) 10/20 Tracheal aspirate: moderate growth no significant chelsey 10/20 Respiratory PCR panel: (+) influenza A 10/20 Blood cx: NGTD Prior cultures 10/16/18 Blood cx (from [facility]): Strep Pneumo R- Clindamycin and erythromcyin Susceptible: ceftriaxone-dilut method 0.094, levofloxacin, penicillin e-dilut method 0.064, trimethoprim, and vancomycin 09/19/18 L leg: pseudomonas R-Aztreonam 09/07/18 Culture from R leg incision: Staph aureus MSSA, Enterobacter cloace 08/13/18 Sputum cx: Loretta glabrata and dublinesis Medications Scheduled Meds: ascorbic acid (VITAMIN C) tablet 500 mg 500 mg Per NG tube QDAY aspirin chewable tablet 81 mg 81 mg Per OG Tube QDAY atorvastatin (LIPITOR) tablet 20 mg 20 mg Per OG Tube QHS budesonide respule (PULMICORT) nebulizer solution 0.5 mg 0.5 mg Inhalation BID cefepime (MAXIPIME) 2 g in sodium chloride 0.9% (NS) 100 mL IVPB (MB+) 2 g Intravenous Q8H* [START ON 11/06/2018] cefTRIAXone (ROCEPHIN) IVP 2 g 2 g Intravenous Q12H* chlorhexidine gluconate (PERIDEX) 0.12 % solution 15 mL 15 mL Swish & Spit BID collagenase (SANTYL) topical ointment Topical BID docusate (COLACE) oral solution 100 mg 100 mg Per OG Tube BID famotidine (PEPCID) oral suspension 20 mg 20 mg Per NG tube BID heparin (porcine) PF syringe 5,000 Units 5,000 Units Subcutaneous Q8H melatonin tablet 3 mg 3 mg Oral QHS milk of magnesia (CONC) oral suspension 10 mL 10 mL Per OG Tube QDAY nicotine (NICODERM CQ STEP 1) 21 mg/day patch 1 patch 1 patch Transdermal QDAY( 21) ofloxacin (FLOXIN) 0.3 % (ophthalmic for otic use) solution 4 drop 4 drop Both Ears TID potassium chloride oral solution 20 mEq 20 mEq Per OG Tube QDAY risperiDONE (RISPERDAL) tablet 1 mg 1 mg Oral QHS senna/docusate (SENOKOT-S) solution 10 mL 10 mL Per OG Tube BID sertraline (ZOLOFT) tablet 50 mg 50 mg SEE ADMIN INSTRUCTIONS QHS zinc sulfate capsule 220 mg 220 mg Per NG tube QDAY Continuous Infusions: PRN and Respiratory Meds:acetaminophen Q4H PRN, calcium gluconate IV PRN (Heating Operators Engineer from Rx) AND Ionized Calcium PRN AND Notify Physician Ongoing, fentaNYL citrate PF Q1H PRN, ipratropium/albuterol Q4H PRN, magnesium sulfate PRN AND [CANCELED] Magnesium PRN AND Notify Physician Ongoing, oxyCODONE Q4H PRN, pancrelipase 20,000 Units/ sodium bicarbonate 650 mg(#) PRN ( Heating Operators Engineer from Rx), potassium chloride SR PRN OR potassium chloride PRN Physical Examination Vital Signs: Last Vital Signs: 24 Hour Range BP: 130/100 (11/02 799) Temp: 37.2 C (98.9 F) (11/01 0400) Pulse: 96 (11/02 799) Respirations: 22 PER MINUTE (11/02 799) SpO2: 100 % (11/02 799) O2 Delivery: Tracheal Tube (11/01 699) SpO2 Pulse: 98 (11/02 799) BP: (92-158)/(42-100) Temp: [37.1 C (98.7 F)-37.4 C (99.4 F)] Pulse: [86-114] Respirations: [17 PER MINUTE-33 PER MINUTE] SpO2: [95 %-100 %] O2 Delivery: Tracheal Tube General appearance: alert and nodding appropriately to questions H&N: mucus membranes moist; trach in place Lungs: clear breath sounds on anterior auscultation Heart: normal rate; no murmurs appreciated Abdomen: soft, non-tender, non-distended, normoactive bowel sounds, Ext: healing ulcerations on medial aspect of R and L extremities from prior vein grafting. Sig improved from admission. Skin: no rash Msk: no joint swelling or redness Lines/drains/tubes: Trach, NDT; PIV x2 Laboratory Hematology Recent Labs 10/30/18 04010/31/18 0250 11/01/18 0415 WBC 11.0 11.1* 8.5 HGB 8.6* 8.9* 11.4* HCT 25.4* 26.1* 35.0* PLTCT 481* 545* 588* Chemistry Recent Labs 10/30/18 0405 10/30/18 19410/31/18 0250 11/01/18 0415 NA 135* 138 139 138 K 4.1 4.1 4.3 4.0 CL 106 105 108 105 CO2 25 27 27 23 BUN 12 13 14 13 CR 0.44 0.49 0.43 0.43 GFR >60 >60 >60 >60 GLU 146* 107* 126* 109* CA 9.3 9.9 9.5 10.2 PO4 5.8* -- 5.8* 4.4 Microbiology, Radiology and other Diagnostics Review Microbiology reviewed. Pertinent radiology reviewed. Complexity of medical decision making is high due to the multi-system nature of the infectious disease process or potential for limb-threatening infection as well as concerns including but not limited to complexity of the patient's underlying illnesses, the identification and sensitivities of the organisms being treated, the potential for antimicrobial toxicities and drug-drug interactions, concerns regarding immunologic function, and interplay of other issues. Meningitis, brain abscess, lab and imaging review, summary of old records, intensive abx monitoring. * Shelby Collier, SEMAJ-POWDER AND PRIMER CANNING LEADER - 11/01/2018 7:35 AM CDT Neuro Critical Care Progress Note Etelvina Alonso Admission Date: 10/19/2018 LOS: 13 days Full Code ASSESSMENT/PLAN Patient Active Problem List Diagnosis Date Noted Pneumocephalus 10/26/2018 Cerebritis 10/26/2018 Influenza A 10/26/2018 Abscess of brain 10/26/2018 Paroxysmal atrial fibrillation (HCC) 10/25/2018 Altered mental status, unspecified 10/20/2018 Pneumonia due to infectious organism 10/19/2018 Acute respiratory failure with hypoxia and hypercapnia (HCC) 10/19/2018 Etelvina Alonso is a 58 y.o. female with history of HTN, HLD, non-healing leg wounds, CAD s/p CABG in 07/2018 who presented to an OSH on 10/16 with shortness of breath and chest pains and found to have a RUL pneumonia. She was intubated on 10/17 2/2 worsening respiratory status and AMS. On 10/19, CTA with R temporal lobe intraparenchymal air and surrounding edema. Transferred to [facility] for escalation of care. Hospital and ICU course: 10/19: [facility] 10/23: LP 10/26: DC amiodarone. Start spironolactone 12.5mg daily and lasix 20mg daily. Placed flexiseal 10/29: trach placement 10/31: DC Ativan, increase risperidone to 1mg HS, add melatonin 3mg HS. CXR to eval for complaints of SOA. DC central line. 11/01: Lasix 20 mg; PEG placement Neuro/ENT: Encephalopathy Meningitis Right temporal lobe abscess Depression - Q4 neurochecks - PT/OT - Sertraline HS Sedation/Pain Management: Delirium - PRN fentanyl, oxycodone and tylenol available - Melatonin 3mg HS, risperdal 1 mg HS - Assess for delirium daily Cardiac: HTN HLD CAD s/p CABG in 07/2018 Paroxysmal AF Echo: 35-40%, mitral valve borderline prolapse and regurg no vegetations, Mild TR JYOTSNA:There is a small echogenic mass on the coaptation line of the aortic valve - SBP goal: < 160 - MAP goal > 65 - holding PRODUCTION CONTROL TECHNOLOGIST lisinopril and Toprol - plan to resume low dose BB after PEG placement - continue PRODUCTION CONTROL TECHNOLOGIST atrovastatin and ASA - gentle diuresis with lasix Respiratory: Acute hypoxic and hypercapneic respiratory failure on mechanical ventilation S/p Trach placement 10/29 per ENT Chest Xray 10/31:Progressing mixed opacities most apparent in the left perihilar region and left midlung. Persistent cardiomegaly with vascular congestion and small bilateral pleural effusions. - Currently on PS 5/5 - PRODUCTION CONTROL TECHNOLOGIST budesonide - trach to be changed per ENT 11/02 GI: - Feeding: NPO,Isosource 1.5 @ 50 ml/hr with free water 150 ml every 6 hours - Bowel regimen, ensure daily BM(last BM 11/01) - Famotidine BID Heme: Thrombocytosis- 2/2 acute illness Normocytic Anemia s/p 1 unit (10/29) - Trend daily CBC - Hgb 11.4, Plt 588 - SQ Heparin - ASA 81mg ID: Leukocytosis, mild HCAP + Step pneumo bacteremia Influenza A (completed Tamiflu 10/30) LE wounds + Pseudomonas - afebrile, WBC 11.1 - Cdiff negative 10/24 - LLE wound + pseudomonaas - Blood cultures 10/20 and 10/22 NGTD - Sputum NGTD 10/20 - CSF 10/23 NGTD - ID following appreciate recs - Continue cefepime until 11/05, then switch to Rocephin 2 g IV BID until 11/12 - Ofloxacin drops TID Renal: - BUN 13, Cr 0.43 - Aim for normovolemia Intake/Output Summary (Last 24 hours) at 11/01/2018 1256 Last data filed at 11/01/2018 1200 Gross per 24 hour Intake 1719 ml Output 2035 ml Net -316 ml Endocrine: - Trend on daily BMP - Blood glucose goal 100-180mg/dl FEN: IVF:None Electrolyte protocol in place Magnesium goal >2.0, i-Earl goal > 1.0, Potassium goal >4.0 mEq/L Prophylaxis Review: A)GI: [id number] B) Lines:Yes; Central Line; Indication: Frequent blood draws; Type: Internal jugular- Remove today C) Urinary Catheter:No D) Antibiotic Usage:Yes; Infection present or suspected: Lung; Pneumonia E) VTE:Pharmacological prophylaxis; SQ Heparinand Mechanical prophylaxis; Sequential compression device F) Isolation:Droplet G)Seizures:na I) Restraints: Patient assessed for need for restraints. Disposition/Family:Require ICU monitoring Primary service:NEICU Consults: ENT, ID, PT/OT, Dietary, Wound Team SUBJECTIVE Etelvina Alonso is a 58 y.o. female. Overnight Events: No new events noted. Patient c/o chest pain with coughing. Nursing staff reports patient slept better last night. OBJECTIVE Vital Signs: Last Filed Vital Signs: 24 Hour Range BP: 143/62 (11/01 699) Temp: 37.2 C (98.9 F) (11/01 0400) Pulse: 88 (11/01 699) Respirations: 22 PER MINUTE (11/01 699) SpO2: 98 % (11/01 699) O2 Delivery: Tracheal Tube (11/01 699) BP: (92-158)/(42-83) Temp: [37.1 C (98.7 F)-37.4 C (99.4 F)] Pulse: [70-114] Respirations: [17 PER MINUTE-33 PER MINUTE] SpO2: [95 %-100 %] O2 Delivery: Tracheal Tube Intensity Pain Scale (Self Report): (not recorded) Vitals: 10/28/18 0500 10/29/18 0500 10/30/18 0400 Weight: 52.6 kg (115 lb 15.4 oz) 51.7 kg (113 lb 15.7 oz) 51.5 kg (113 lb 8.6 oz ) Artificial airway: Tracheostomy Tube Ventilator/ Respiratory Therapy: Yes: SAT Safety Screen Exempt (Nursing Only): Pass-Provide Spontaneous Awakening Trial Spontaneous Awakening Trial (Nursing only): Pass Weaning readiness screen (RT Only):: Implement protocol Weaning readiness screen Met (RT Only):: Yes NIF: [-43 cm H2O] Weaning Minute Volume (L/min): [9.2 L/min] Weaning Tidal Vol (mL) (Calc.): [383 mL] $$ Vital Capacity (mL): [498 ml] Weaning Respiratory Rate: [24 breaths/min] RSBI (Calculated): [63] Mode: PS/CPAP Set Vt (ml): [390 milliliters] Tidal Volume Spont (mL): [306 milliliters-560 milliliters] Set RR: [16 breaths/minutes] Total Respiratory Rate (Breaths/Min): [20 breaths/minutes-23 breaths/minutes] Minute Volume (L/min): [8.39 liters/minutes-10.1 liters/minutes] O2%: [40 %] PIP Actual: [11 cm H20] PEEP/CPAP: [0 cm H2O-5 cm H2O] PSupport: [0 cm H20-5 cm H20] Spontaneous Breathing Trial (RT Only): Implement protocol Spontaneous Breathing Trial MET (RT Only): Yes Weaning Trial Comment: PS 5 per day as viridiana. and mmv per noc . Vent weaning trial: Per protocol Lines: Central Line and Peripheral Line Drains: None Intake/Output Summary: (Last 24 hours) Intake/Output Summary (Last 24 hours) at 11/01/2018 0735 Last data filed at 11/01/2018 0647 Gross per 24 hour Intake 2309.2 ml Output 1685 ml Net 624.2 ml Stool Occurrence: 1 Physical Exam: Blood pressure 143/62, pulse 88, temperature 37.2 C (98.9 F), height 162.6 cm (64"), weight 51.5 kg (113 lb 8.6 oz), SpO2 98 %. Daily coma score: E: 4 - Opens eyes on own M: 5- Localizes to pain V: 1 - Makes no noise Neuro: Mental Status:Alert&Oriented x 3, remains with trach Cranial Nerves: - Pupil exam: Size: R - 3mm, L - 4mmReactivity: brisk - Corneal reflex: R- presentL- present - Grimace/facial movement: present - Cough: present Motor: Moves all extremities spontaneously and to command RUE:Strength:4/5 RLE: Strength:4/5 LUE: Strength:4/5 LLE: Strength:4/5 Lungs:clear to auscultation bilaterally Pulmonary:Respiratory status:Stableon mechanical ventilation Heart:S1, S2 normal Abdomen:soft, non-tender. Bowel sounds normal. No masses, no organomegaly Extremities:extremities normal, atraumatic, no cyanosis or edema Skin:Skin color, texture, turgor normal. No rashes or lesions Point of Care Testing: (Last 24 hours) Lab Review: Pertinent labs reviewed Radiology and Other Diagnostic Procedures Review: Pertinent radiologic and diagnostic procedures reviewed. Shelby Collier APRN-POWDER AND PRIMER CANNING LEADER Date: 11/01/[phone] I spent 55 minutes managing the care of this patient. Mrs. Alonso is critically ill with: R temporal lobe abscess, encephalopathy, bacteremia, HCAP, HTN, CAD, respiratory failure. Cares included: detailed neurologic and systems exam, medication review, laboratory data review and interpretation, electrolyte management, review of available imaging, DVT/PE prophylaxis review, diet review , activity review, mechanical ventilation and sedation management, and coordination of care with consulted teams * Abbie Cleaning RN - 10/31/2018 2:30 PM CDT Wound Ostomy Note NAME:Etelvina Alonso :1960 AGE: 58 y.o. ADMISSION DATE: 10/19/2018 DAYS ADMITTED: LOS: 12 days Reason for Visit: wound not pressure - f/u of lower extremity surgical incisions Assessment/Plan: Active Problems: Pneumonia due to infectious organism Acute respiratory failure with hypoxia and hypercapnia (HCC) Altered mental status, unspecified Paroxysmal atrial fibrillation (HCC) Pneumocephalus Cerebritis Influenza A Abscess of brain Wounds (NOT for Pressure Injuries) 10/19/18 2330 Left Leg Surgical Incision ( Active) 10/19/18 2330 Leg Wound Orientation: Left Wound Type: Surgical Incision Wound Type:: Wound Description (Comments): Dehiscence from prior surgery Wound Image 10/31/2018 2:30 PM Wound Base Assessment Moist;[place] 10/31/2018 2:30 PM Surrounding Skin Assessment Dry;Intact 10/31/2018 2:30 PM Wound Site Closure None 10/31/2018 2:30 PM Wound Drainage Amount Scant 10/31/2018 2:30 PM Wound Drainage Description Serosanguineous 10/31/2018 2:30 PM Wound Dressing Status Changed 10/31/2018 2:30 PM Wound Dressing and / or Treatment Iodoform Packing Strips 1/4";Foam (Biatain) 2:30 PM Wound Length (cm) 0.6 cm 10/31/2018 2:30 PM Wound Width (cm) 0.3 cm 10/31/2018 2:30 PM Wound Depth (cm) 0.4 cm 10/31/2018 2:30 PM Wound Surface Area (cm^2) 0.18 cm^2 10/31/2018 2:30 PM Wound Volume (cm^3) 0.07 cm^3 10/31/2018 2:30 PM Wound Healing % (Wound Team Only) 97.2 10/31/2018 2:30 PM Wound Status (Wound Team Only) Being Treated 10/31/2018 2:30 PM Undermining in CM (Wound Team Only) 0.6 cm 10/31/2018 2:30 PM Undermining Location 12:00 10/31/2018 2:30 PM Right lower extremity incision now healed. Left lower extremity incision healing with exception of incision line at level of knee. See assessment above - depth and tunneling noted. Site cleaned with saline and gauze then dressed with packing strip and foam. Pt's RN notified of visit and change in wound care recs. See below. RECOMMEND: - Discontinue Santyl to RLE and to superior and inferior aspects of LLE incision line. Left medial thigh (incision at level of knee) - - Clean with saline and gauze. - Use wooden end of cotton-tipped applicator to loosely pack wound with 1/4" width Iodiform gauze. Please note tunneling present and fill appropriately. - Cover with Biatain Silicone foam dressing. - Bedside RN to change packing daily; change foam dressing q48 hrs. Primary team is responsible for placing wound care orders. Bedside RN is responsible for dressing changes. Will continue to follow. Abbie Cleaning RN, BSN, CWON Wound/Ostomy Nursing Consult Service Office: [phone] Pager: [phone] Wound/Ostomy Team Pager (After Hours/Weekends): [phone] * Judy Santoro MD - 10/31/2018 11:53 AM CDT NEURO-ENT ICU Critical Care Progress Note Today's Date: 10/31/2018 Name: Etelvina Alonso Admission Date: 10/19/2018 LOS: 12 days ICU problem list: Patient Active Problem List Diagnosis Date Noted Pneumocephalus 10/26/2018 Cerebritis 10/26/2018 Influenza A 10/26/2018 Abscess of brain 10/26/2018 Paroxysmal atrial fibrillation (HCC) 10/25/2018 Altered mental status, unspecified 10/20/2018 Pneumonia due to infectious organism 10/19/2018 Acute respiratory failure with hypoxia and hypercapnia (HCC) 10/19/2018 ATTESTATION Date of Service: 10/31/2018 I have seen, personally fully evaluated, and discussed patient with the Neuro- ENT ICU team. The patient is critically ill after transfer from OSH 10/19 with R temporal lobe intraparenchymal air and surrounding edema concerning for developing abscess. 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 and B/L LE saphenous graft site infections HTN HLD COPD Tobaccoism Acute on chronic anemia I spent 40 minutes (excluding time spent performing or supervising any procedures) providing and personally directing critical care services including -review of serial neurologic, hemodynamic, respiratory, telemetry, laboratory and imaging data -management of fluids/electrolytes, antibiotics, vasoactive medications, gas exchange/mechanical ventilation, sepsis protocol, ICU prophylaxis and ICU core measures -pain/sedation/delirium mgt -medication review and management -organization and coordination of care with patient (or surrogate), ICU team and consulting services. -directing the formulation of the overall plan of care outlined below. Acute hypoxic and hypercapnic respiratory failure, sternal non-union likely contributing to inability to wean vent quickly. Cont SBTs - tolerated most of yesterday but had to be placed back on vent early evening for tachypnea, increased WOB and panic. ABG at that time with acceptable oxygenation altho mild respiratory acidosis also noted. Cont SBTs today as tolerated. Suspect acute delirium/ing may also be playing a role as pt became worse with ativan. Low dose risperdal also administered but uncertain effect as nursing staff restarted precedex (inadvertently left on OCT) before giving antipsychotic enough time. Have taken precedex and ativan off OCT. Ordered 1mg risperdal and melatonin for tonight. Will see how she does. Likely to need PEG - will discuss with pt's today. Remainder of plan per CRITICAL POWER INSTALL TECHNICIAN's note. Dispo: This patient is critically ill with dysfunction of multiple organ systems and is at risk for life threatening deterioration necessitating complex medical decision making and ongoing provision of ICU care. Staff name: Julia Santoro MD Date: 10/31/2018 __ Objective: Medications: Scheduled Meds: ascorbic acid (VITAMIN C) tablet 500 mg 500 mg Per NG tube QDAY aspirin chewable tablet 81 mg 81 mg Per OG Tube QDAY atorvastatin (LIPITOR) tablet 20 mg 20 mg Per OG Tube QHS budesonide respule (PULMICORT) nebulizer solution 0.5 mg 0.5 mg Inhalation BID cefepime (MAXIPIME) 2 g in sodium chloride 0.9% (NS) 100 mL IVPB (MB+) 2 g Intravenous Q8H* [START ON 11/06/2018] cefTRIAXone (ROCEPHIN) IVP 2 g 2 g Intravenous Q12H* chlorhexidine gluconate (PERIDEX) 0.12 % solution 15 mL 15 mL Swish & Spit BID collagenase (SANTYL) topical ointment Topical BID docusate (COLACE) oral solution 100 mg 100 mg Per OG Tube BID famotidine (PEPCID) oral suspension 20 mg 20 mg Per NG tube BID heparin (porcine) PF syringe 5,000 Units 5,000 Units Subcutaneous Q8H melatonin tablet 3 mg 3 mg Oral QHS milk of magnesia (CONC) oral suspension 10 mL 10 mL Per OG Tube QDAY nicotine (NICODERM CQ STEP 1) 21 mg/day patch 1 patch 1 patch Transdermal QDAY( 21) ofloxacin (FLOXIN) 0.3 % (ophthalmic for otic use) solution 4 drop 4 drop Both Ears TID potassium chloride oral solution 20 mEq 20 mEq Per OG Tube QDAY risperiDONE (RISPERDAL) tablet 1 mg 1 mg Oral QHS senna/docusate (SENOKOT-S) solution 10 mL 10 mL Per OG Tube BID sertraline (ZOLOFT) tablet 50 mg 50 mg SEE ADMIN INSTRUCTIONS QHS zinc sulfate capsule 220 mg 220 mg Per NG tube QDAY Continuous Infusions: PRN and Respiratory Meds:acetaminophen Q4H PRN, calcium gluconate IV PRN (Heating Operators Engineer from Rx) AND Ionized Calcium PRN AND Notify Physician Ongoing, fentaNYL citrate PF Q1H PRN, ipratropium/albuterol Q4H PRN, magnesium sulfate PRN AND [CANCELED] Magnesium PRN AND Notify Physician Ongoing, oxyCODONE Q4H PRN, pancrelipase 20,000 Units/ sodium bicarbonate 650 mg(#) PRN ( Heating Operators Engineer from Rx), potassium chloride SR PRN OR potassium chloride PRN Vital Signs: Last Filed Vital Signs: 24 Hour Range BP: 150/76 (10/31 1100) Temp: 37.2 C (98.9 F) (10/31 0400) Pulse: 101 (10/31 1100) Respirations: 22 PER MINUTE (10/31 1100) SpO2: 100 % (10/31 1100) O2 Delivery: Tracheal Tube (10/31 1100) BP: (70-161)/(43-103) Temp: [37.2 C (98.9 F)-37.6 C (99.6 F)] Pulse: [56-137] Respirations: [14 PER MINUTE-32 PER MINUTE] SpO2: [98 %-100 %] O2 Delivery: Tracheal Tube Intensity Pain Scale (Self Report): (not recorded) Vitals: 10/28/18 0500 10/29/18 0500 10/30/18 0400 Weight: 52.6 kg (115 lb 15.4 oz) 51.7 kg (113 lb 15.7 oz) 51.5 kg (113 lb 8.6 oz ) Intake/Output Summary: (Last 24 hours) Intake/Output Summary (Last 24 hours) at 10/31/2018 1153 Last data filed at 10/31/2018 1100 Gross per 24 hour Intake 2258.32 ml Output 2130 ml Net 128.32 ml Physical Exam: Eyes open, alert, NAD FF commands x 4 Appears to nod appropriately RRR, no murmur CTA B/L Abd S, NT +BS Ext warm, no edema - saphenous graft sites well healed Artificial airway: Tracheostomy Tube Ventilator/ Respiratory Therapy: Yes: Mode: PS/CPAP Tidal Volume Spont (mL): [291 milliliters-412 milliliters] Total Respiratory Rate (Breaths/Min): [20 breaths/minutes-34 breaths/minutes] Minute Volume (L/min): [7.28 liters/minutes-12 liters/minutes] O2%: [40 %] PIP Actual: [11 cm H20] PEEP/CPAP: [5 cm H2O] PSupport: [5 cm H20] Vent weaning trial: Per protocol Lab Review: Pertinent labs reviewed Point of Care Testing: (Last 24 hours): Glucose: (!) 126 (10/31/18 0250) Radiology and Other Diagnostic Procedures Review: Pertinent radiology reviewed. Juila Santoro MD 10/31/2018 Pager: [phone] * Elenita Butler, OT - 10/31/2018 10:05 AM CDT OCCUPATIONAL THERAPY PROGRESS NOTE Patient Name: Etelvina Alonso Room/Bed: ML5225/01 Admitting Diagnosis: altered mental status Mobility Progressive Mobility Level: Stand Level of Assistance: Assist X2 Assistive Device: Hand Held Time Tolerated: 11-30 minutes Activity Limited By: Lines / Medical Devices;Patient request to stop;Dizziness; Fatigue Subjective Pertinent Dx per Physician: HTN, HLD, no nhealing leg wounds, CAD s/p CABG in in [place] who presented to an OSH on 10/16 with shortness of breath and chest pains and found to have a RUL pneumonia. She was intubated on 10/17 2/ worsening respiratory status and AMS. Workup showed cerebritis, tegmen dehisence , encephalocele, possible temporal lobe abscess. Sternal nonunion, 2 loosened sternal wires, nonop per CTS. s/p trach, B myringotomy and tube placement, R mastoidectomy 10/29 Precautions: Falls;NPO Pain / Complaints: Patient has no c/o pain Objective Psychosocial Status: Willing and Cooperative to Participate Persons Present: Physical Therapist Vision Current Vision: Wears Glasses All of the Time ADL's Comment: Total assist for all at this time. Minimal assist X2 for bed mobility, standing. Maximum assist to take sidesteps toward edge of bed. Pt declined to tranfser into chair this date. Returned to bed and pt stayed in long-sitting for RN to suction as pt had coughed considerable sputum. Pt then assisted to supine. Bed alarm set and call light in reach. Activity Tolerance Endurance: 10/16 Tolerates 25-30 Minutes Exercise w/Multiple Rests Sitting Balance: 2+/5 Supports Self w/ 1 UE Ventilator settings Ventilator Mode FiO2 (%) PEEP Pressure Support SpO2 (%) Respiratory Rate (RR) Location of Endotracheal tube (ETT) at the gums CPAP 40 5 5 Pre Activity:99 During Activity:98 Post Activity:99 Pre Activity:27 During Activity: up to 37 with cough, mostly 31-33 Post Activity:31 trach Cognition Cognition Comment: mild motor planning deficit vs anxiety or combination. Some difficulty advancing LLE with taking sidesteps and with figuring out optimum position for LLE for leverage to scoot up in bed. AM-PAC 6 Clicks Daily Activity Inpatient Putting on and taking off regular lower body clothes?: Total Bathing (Including washing, rinsing, drying): Total Toileting, which includes using toilet, bedpan, or urinal: Total Putting on and taking off regular upper body clothing: Total Taking care of personal grooming such as brushing teeth: Total Eating meals?: Total Daily Activity Raw Score: 6 Standardized (t-scale) score: 17.07 CMS 0-100% Score: 100 CMS G Code Modifier: CN Plan OT Frequency: 5x/week OT Plan for Next Visit: bed mobility, sitting balance/sitting tolerance, grooming at edge of bed, transfer to chair ADL Goals Patient Will Perform Grooming: w/ Minimum Assist;in Chair Patient Will Perform LE Dressing: w/ Minimum Assist Other ADL Goal 1: Pt to sit edge of bed with minimal assist X3 minutes with stable vitals(MET) Functional Transfer Goals Pt Will Perform All Functional Transfers: Minimum Assist Pt Will Transfer To Bedside Commode: w/ Minimum Assist Arm Goals Pt Will Perform AROM: 10 Reps(all planes of motion with stable vitals) OT Discharge Recommendations OT Discharge Recommendations: Inpatient Setting Equipment Recommendations: Too early to be determined Therapist: Elenita Butler OT Date: 10/31/2018 * Louise Hennessy, PT - 10/31/2018 10:03 AM CDT PHYSICAL THERAPY PROGRESS NOTE MOBILITY: Mobility Progressive Mobility Level: Stand Distance Walked (feet): 0 ft Level of Assistance: Assist X2 Assistive Device: Hand Held Time Tolerated: 11-30 minutes Activity Limited By: Lines / Medical Devices;Fatigue SUBJECTIVE: Subjective Significant hospital events: Presented to an OSH on 10/16 with shortness of breath and chest pains and found to have a RUL pneumonia. She was intubated on 2/2 worsening respiratory status and AMS. On 10/19, CTA with R temporal lobe intraparenchymal air and surrounding edema. Transferred to [facility] for escalation of care. Flail sternum and pna contributed to difficulty weaning vent. Repeat MRI showed right inferior temporal cerebritis that has coalesced into an abscess. Bilateral myringotomy and tube, Mastoidectomy, and Tracheostomy on . Mental / Cognitive Status: Alert;Cooperative;Follows Commands Persons Present: Occupational Therapist(Simultaneous filing. User may not have seen previous data.) Pain: Patient has no complaint of pain Ambulation Assist: Independent Mobility in Community without Device Home Situation: Lives with Family Ventilator settings Ventilator Mode FiO2 (%) PEEP Pressure Support SpO2 (%) Respiratory Rate (RR) Location of Endotracheal tube (ETT) at the [facility] CPAP 40% 5 5 Pre Activity:99 During Activity:98 Post Activity:99 Pre Activity:27 During Activity: up to 37 with cough, mostly 31-33 Post Activity:31 trach ROM: ROM LE ROM WFL: Yes STRENGTH: Strength Overall Strength: WFL BED MOBILITY/TRANSFERS: Bed Mobility/Transfers Bed Mobility: Supine to Sit: Minimal Assist;x2 People;Assist with Trunk;Head of Bed Elevated;Use of Rail Bed Mobility: Sit to Supine: Minimal Assist;x2 People;Assist with B LE;Assist with Trunk;Bed Flat;No Rail Comments: Patient tolerated sitting edge of bed with standby assist of first person and second person for ventilator management. Agreeable to standing trial this date. RR as high as 37 but this improved with cues for slow, deep breathing. Transfer Type: Sit to Stand Transfer: Assistance Level: To/From;Bed;Moderate Assist;of 1st person;Standby Assist;of 2nd person(second person for ventilator management. ) Transfer: Assistive Device: Hand Hold Assist Transfers: Type Of Assistance: For Balance;For Strength Deficit;For Safety Considerations End Of Activity Status: In Bed;Nursing Notified;Instructed Patient to Request Assist with Mobility;Instructed Patient to Use Call Light(bed alarm on) Comments: Patienttolerated standing with moderate assist initially then progressed to minimal assist to maintain standing. L knee buckled initially but stable for the rest of treatment. Difficulty advancing l LE for side steps so required manual assist on l to take side steps to head to bed. Able to take steps with R LE. Declined up to chair at this time. BALANCE: Balance Sitting Balance: Static Sitting Balance;No UE Support;1 UE Support;Standby Assist(few periods of minimal assist ) ACTIVITY/EXERCISE: Activity / Exercise Sit Edge Of Bed: 15 minutes Sit Edge Of Bed Assist: Stand By Assist;Minimal Assist Stand At Bedside : 2 minutes Stand At Bedside Assist: Minimal Assist EDUCATION: Education Persons Educated: Patient Patient Barriers To Learning: Anxiety Interventions: Repetition of Instructions Teaching Methods: Verbal Instruction Patient Response: More Instruction Required Topics: Plan/Goals of PT Interventions;Importance of Increasing Activity; Recommend Continued Therapy ASSESSMENT/PROGRESS: Assessment/Progress Impaired Mobility Due To: Decreased Activity Tolerance;Medical Status Limitation Assessment/Progress: Should Improve w/ Continued PT AM-PAC 6 Clicks Basic Mobility Inpatient Turning from your back to your side while in a flat bed without using bed rails : A Little Moving from lying on your back to sitting on the side of a flatbed without using bedrails : Total Moving to and from a bed to a chair (including a wheelchair): Total Standing up from a chair using your arms (e.g. wheelchair, or bedside chair): Total To walk in hospital room: Total Climbing 3-5 steps with a railing: Total Raw Score: 8 Standardized (T-scale) Score: 22.61 Basic Mobility CMS 0-100%: 85.35 CMS G Code Modifier for Basic Mobility: CM GOALS: Goals Goal Formulation: With Patient Time For Goal Achievement: 5 days Patient Will Go Supine To/From Sit: w/ Stand By Assist Patient Will Transfer Bed/Chair: w/ Minimal Assist PLAN: Plan Treatment Interventions: Mobility Training;Strengthening Plan Frequency: 5 Days per Week PT Plan for Next Visit: Continue to work on standing at edge of bed. Trial transfer to chair next session. RECOMMENDATIONS: PT Discharge Recommendations PT Discharge Recommendations: Inpatient Setting Therapist: Louise Hennessy, PT Date: 10/31/2018 * Benny Sepulveda MD - 10/31/2018 8:30 AM CDT Infectious Disease Progress Note Name: Etelvina Alonso Today's Date: 10/31/2018 Admission Date: 10/19/2018 Consulted for Cerebritis suspected Type of consult: Co-management w/signed orders Assessment: Strep pneumo bacteremia Bilateral LE wounds due to CABG vein harvest, both tracking deep, L with purulent drainage Pneumocephalus with surrounding edema on CTA head 10/19/18 at OSH, cerebritis, possible developing abscess in basal right temporal lobe on MRI head 10/20/18 Influenza A with possible HCAP Acute hypoxic/hypercarbic respiratory failure, s/p tracheostomy 10/29/18 S/p mastoidectomy on the right, bilateral myringotomy w/tympanostomy tube placement 10/29/18 -Past concern for biliateral LE wound infection as below -10/16 presented to [facility] with a few days of fever, cough -10/16/18: BC x 2 Strep Pneumo R- Clindamycin and erythromcyin S: ceftriaxone ( MARCY 0.094), PCN (MARCY 0.064), levo, TMP/S, vanc. Rapid Flu Ag negative. MRSA nasal screen negative. 10/17/18: Sputum culture: Yeast and normal chelsey -Rapid mental status deterioration, intubated -CTA head 10/19/18 at OSH, small area of intraparenchymal air above the mastoid air cells and some edema around that area, with concern for possible infection. Pt was transferred to for further management -10/19: CXR patchy mixed alveolar and interstitial opacities -10/20: Tracheal aspirate: < 10 PMN, < 10 squam, no orgs. Moderate growth no significant chelsey -10/20: LLE swab: Pseudomonas aeruginosa (R - meropenem, ceftazidime, pip/tazo; S - cefepime, tobramycin, gentamicin, ceftolozane/tazobactam and ceftazidime/ avibactam) -10/20: MRI head w/wo: Ovoid focus of diffusion restriction and partial rim enhancement in the basal right temporal lobe overlying the tegmen suggestive of focal cerebritis and developing abscess. Dependent diffusion restricting material within the lateral ventricles suspicious for ventriculitis. Thin complex left posterolateral convexity subdural fluid collection with diffusion restriction suggestive of thin subdural empyema. -10/23: JYOTSNA: There is a small echogenic mass on the coaptation line of the aortic valve. Appears to likely be associated with the left coronary cusp. A vegetation cannot be ruled out. 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 No stenosis. No regurgitation. -10/23: CSF - WBCs 23 (86% lymphocytes, 9% mono/histocytes, 3% neutrophils), RBCs 1, glucose 70, protein 70. Cx NGTD -10/30: Finished 10-day course of oseltamivir Echogenic mass seen on AV - 10/23/18 JYOTSNA: There is a small echogenic mass on the coaptation line of the aortic valve. Appears to likely be associated with the left coronary cusp. A vegetation cannot be ruled out. 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 No stenosis. No regurgitation. Concern for bilateral LE wound infection, [facility] Bilateral vein harvest sites on lower extremities from CABG in [facility], 07/2018 Multiple cultures in [facility]. 09/07/18- Culture from R leg incision - Staph aureus MSSA, enterobacter cloace. 09/19/18 L leg pseudomonas R-Aztreonam Throat August and early September 2018 patient received courses of cefdinir, clindamycin, doxycycline, and trimethoprim/sulfa of unclear duration. 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 DEPUTY COURT infection likely S pneumo, which is well covered by the cefepime and also has good DEPUTY [address] penetration. Will tentatively plan for 2 weeks (from 10/23) of cefepime to treat both the LE wound infections and Strep pneumo bacteremia and suspected DEPUTY [address] abscess. Tentative last day of cefepime would be 11/05. -After cefepime she could be transitioned to ceftriaxone 2 g IV BID for meningitis. This would continue until at least 11/12 (4 weeks from 10/16). -Monitor for abx side effects -If on DC pt transfers to [facility], their ID physicians will take over ID care. Shan Walker DO Infectious Diseases Fellow Pager # [phone] Discussed with attending on service, Dr. Sepulveda I have seen, personally evaluated, and discussed the patient's care with Dr. Walker, Infectious Diseases Fellow. I agree with the subjective notations, objective findings and agree with the plan of care as documented in this note with edits made by me as necessary. Benny Sepulveda MD Automation Engineering Technician Division of Infectious Diseases Interval History Etelvina Alonso is a 58 y.o. female with a PMH significant for CABG (07/2018) who presented to [facility] in [facility] on 10/16/18 after noting worsening cough and sternal pain from recent sternotomy and non-healing LE graft sites. Transferred to [facility] on 10/19/18 for right temporal lobe intraparenchymal air and edema seen on CTA. Seen this AM lying in bed on vent via trach. Denied any subjective fevers or chills, sweats, n/v, diarrhea, or rashes. Has been having issues with anxiety, but appeared more calm this AM. Afebrile WBC 11.1 Cr 0.43 ROS As mentioned in 'Interval History' otherwise 10-point ROS negative Antimicrobial Start date End date Cefepime 10/16/18-10/18/18, 10/23 active Ceftriaxone 10/18/18 10/20/18 Cefedinir 09/23/18 PRODUCTION CONTROL TECHNOLOGIST, uncertain timeframe Doxycycline 100 mg PO BID 09/06/18 PRODUCTION CONTROL TECHNOLOGIST, uncertain timeframe [id number] mg PO BID 08/23/18 PRODUCTION CONTROL TECHNOLOGIST, uncertain timeframe Fluconazole 150 mg PO QD 08/17/18 PRODUCTION CONTROL TECHNOLOGIST, uncertain timeframe Vancomycin 10/20/1810/24 Ampicillin 10/20/18 10/20/18 Fluconazole 10/20/18 10/26/18 Oseltamivir 10/21/1810/30 Meropenem 10/20/1810/23 Bactrim 08/17/18 PRODUCTION CONTROL TECHNOLOGIST, uncertain timeframe Estimated Creatinine Clearance: 72.1 mL/min (based on SCr of 0.43 mg/dL). Cardenas Results 10/24 C diff: negative 10/23 CSF GS/cx: rare neutrophils, no organisms seen, NGTD; WBCs 23 (86% lymphocytes, 9% mono/histocytes, 3% neutrophils), RBCs 1, glucose 70, protein 70 ; HSV PCR negative 10/22 Blood cx: NG 10/20 LLE wound swab: Pseudomonas aeruginosa (R - meropenem, ceftazidime, pip/tazo ; S - cefepime, tobramycin, gentamicin, ceftaz/rachele, ceftolozane/tazo) 10/20 Tracheal aspirate: moderate growth no significant chelsey 10/20 Respiratory PCR panel: (+) influenza A 10/20 Blood cx: NGTD Prior cultures 10/16/18 Blood cx (from [facility]): Strep Pneumo R- Clindamycin and erythromcyin Susceptible: ceftriaxone-dilut method 0.094, levofloxacin, penicillin e-dilut method 0.064, trimethoprim, and vancomycin 09/19/18 L leg: pseudomonas R-Aztreonam 09/07/18 Culture from R leg incision: Staph aureus MSSA, Enterobacter cloace 08/13/18 Sputum cx: Loretta glabrata and dublinesis Medications Scheduled Meds: ascorbic acid (VITAMIN C) tablet 500 mg 500 mg Per NG tube QDAY aspirin chewable tablet 81 mg 81 mg Per OG Tube QDAY atorvastatin (LIPITOR) tablet 20 mg 20 mg Per OG Tube QHS budesonide respule (PULMICORT) nebulizer solution 0.5 mg 0.5 mg Inhalation BID cefepime (MAXIPIME) 2 g in sodium chloride 0.9% (NS) 100 mL IVPB (MB+) 2 g Intravenous Q8H* [START ON 11/06/2018] cefTRIAXone (ROCEPHIN) IVP 2 g 2 g Intravenous Q12H* chlorhexidine gluconate (PERIDEX) 0.12 % solution 15 mL 15 mL Swish & Spit BID collagenase (SANTYL) topical ointment Topical BID docusate (COLACE) oral solution 100 mg 100 mg Per OG Tube BID famotidine (PEPCID) oral suspension 20 mg 20 mg Per NG tube BID heparin (porcine) PF syringe 5,000 Units 5,000 Units Subcutaneous Q8H milk of magnesia (CONC) oral suspension 10 mL 10 mL Per OG Tube QDAY nicotine (NICODERM CQ STEP 1) 21 mg/day patch 1 patch 1 patch Transdermal QDAY( 21) ofloxacin (FLOXIN) 0.3 % (ophthalmic for otic use) solution 4 drop 4 drop Both Ears TID potassium chloride oral solution 20 mEq 20 mEq Per OG Tube QDAY risperiDONE (RISPERDAL) tablet 0.5 mg 0.5 mg Oral QHS senna/docusate (SENOKOT-S) solution 10 mL 10 mL Per OG Tube BID sertraline (ZOLOFT) tablet 50 mg 50 mg SEE ADMIN INSTRUCTIONS QHS zinc sulfate capsule 220 mg 220 mg Per NG tube QDAY Continuous Infusions: PRN and Respiratory Meds:acetaminophen Q4H PRN, calcium gluconate IV PRN (Heating Operators Engineer from Rx) AND Ionized Calcium PRN AND Notify Physician Ongoing, fentaNYL citrate PF Q1H PRN, ipratropium/albuterol Q4H PRN, LORazepam Q6H PRN, magnesium sulfate PRN AND [CANCELED] Magnesium PRN AND Notify Physician Ongoing, oxyCODONE Q4H PRN, pancrelipase 20,000 Units/ sodium bicarbonate 650 mg (#) PRN (Heating Operators Engineer from Rx), potassium chloride SR PRN OR potassium chloride PRN Physical Examination Vital Signs: Last Vital Signs: 24 Hour Range BP: 132/70 (10/31 699) Temp: 37.2 C (98.9 F) (10/31 0400) Pulse: 86 (10/31 699) Respirations: 28 PER MINUTE (10/31 699) SpO2: 100 % (10/31 699) O2 Delivery: Tracheal Tube (10/31 699) SpO2 Pulse: 86 (10/31 699) BP: (70-161)/(43-103) Temp: [37.2 C (98.9 F)-37.6 C (99.6 F)] Pulse: [56-137] Respirations: [14 PER MINUTE-32 PER MINUTE] SpO2: [98 %-100 %] O2 Delivery: Tracheal Tube General appearance: alert and nodding appropriately to questions H&N: mucus membranes moist; trach in place Lungs: clear breath sounds on anterior auscultation Heart: normal rate; no murmurs appreciated Abdomen: soft, non-tender, non-distended, normoactive bowel sounds, Ext: healing ulcerations on medial aspect of R and L extremities from prior vein grafting, bandaged Skin: no rash Msk: no joint swelling or redness Lines/drains/tubes: CVC in R IJ; NDT; PIV x2 Laboratory Hematology Recent Labs 10/29/18 0418 10/30/18 0405 10/31/18 0250 WBC 11.7* 11.0 11.1* HGB 7.5* 8.6* 8.9* HCT 23.0* 25.4* 26.1* PLTCT 480* 481* 545* Chemistry Recent Labs 10/29/18 0418 10/30/18 0405 10/30/18 1945 10/31/18 0250 NA 138 135* 138 139 K 4.4 4.1 4.1 4.3 CL 107 106 105 108 CO2 25 25 27 27 BUN 14 12 13 14 CR 0.40 0.44 0.49 0.43 GFR >60 >60 >60 >60 GLU 131* 146* 107* 126* CA 9.8 9.3 9.9 9.5 PO4 4.8* 5.8* -- 5.8* Microbiology, Radiology and other Diagnostics Review Microbiology reviewed. Pertinent radiology reviewed. Complexity of medical decision making is high due to the multi-system nature of the infectious disease process or potential for limb-threatening infection as well as concerns including but not limited to complexity of the patient's underlying illnesses, the identification and sensitivities of the organisms being treated, the potential for antimicrobial toxicities and drug-drug interactions, concerns regarding immunologic function, and interplay of other issues. Meningitis, brain abscess, lab and imaging review, summary of old records, intensive abx monitoring. * Mica Javed APRN - 10/31/2018 7:44 AM CDT Neuro Critical Care Progress Note Etelvina Alonso Admission Date: 10/19/2018 LOS: 12 days Full Code ASSESSMENT/PLAN Patient Active Problem List Diagnosis Date Noted Pneumocephalus 10/26/2018 Cerebritis 10/26/2018 Influenza A 10/26/2018 Abscess of brain 10/26/2018 Paroxysmal atrial fibrillation (HCC) 10/25/2018 Altered mental status, unspecified 10/20/2018 Pneumonia due to infectious organism 10/19/2018 Acute respiratory failure with hypoxia and hypercapnia (HCC) 10/19/2018 Etelvina Alonso is a 58 y.o. female with history of HTN, HLD, non-healing leg wounds, CAD s/p CABG in 07/2018 who presented to an OSH on 10/16 with shortness of breath and chest pains and found to have a RUL pneumonia. She was intubated on 10/17 2/2 worsening respiratory status and AMS. On 10/19, CTA with R temporal lobe intraparenchymal air and surrounding edema. Transferred to [facility] for escalation of care. Hospital and ICU course: 10/19: [facility] 10/26: DC amiodarone. Start spironolactone 12.5mg daily and lasix 20mg daily. Placed flexiseal.. Plan for OR Tuesday 10/31: DC Ativan, increase risperidone to 1mg HS, add melatonin 3mg HS. CXR to eval for complaints of SOA. DC central line. Neuro/ENT: Altered mental status;Meningitis; right temporal lobe abscess Q4 neurochecks PT/OT Sertraline HS NSG - No intervention planned S/p OR with ENT for tympanomastoidectomy (10/29) Sedation/Pain Management: PRN fentanyl, oxycodone and tylenol available DC PRN Ativan, DC Precedex Melatonin 3mg HS Risperidone 1mg HS Assess for delirium daily Cardiac: HTN; HLD; CAD s/p CABG in 07/2018; Paroxysmal AF SBP goal: < 160 MAP goal > 65 PRODUCTION CONTROL TECHNOLOGIST lisinopril on hold PRODUCTION CONTROL TECHNOLOGIST atrovastatin and ASA Echo: 35-40%, mitral valve borderline prolapse and regurg no vegetations JYOTSNA:There is a small echogenic mass on the coaptation line of the aortic valve. Appears to likely be associated with the left coronary cusp. A vegetation Respiratory: RUL Pneumonia Date of Intubation: 10/17 Reason: Airway protection - Currently on PS 5/5, had to be placed back on MMV overnight PRODUCTION CONTROL TECHNOLOGIST budesonide Complained of SOA overnight- will get CXR today to evaluate GI: Feeding: NPO,Isosource 1.5 @ 50 ml/hr with free water 150 ml every 6 hours Bowel regimen, ensure daily BM(last BM 10/29) Famotidine BID Heme: Trend daily CBC Hgb 8.9, Plt 545 SQ Heparin ASA 81mg S/p 1 unit (10/29) ID: Leukocytosis (improving); PNA; + Step pneumo bacteremia; Non-healing wounds on frequent Abx; thrush TMax 37.2 WBC 11.1 ID consult appreciate recs Trend daily CBC Continue cefepime till 11/05 can switch to Rocephin 2 g IV BID after until 11/12 Tamiflu x 10 days DCd on 10/30 Ofloxacin drops TID Aim for normothermia CXR today Renal: Trend daily BMP Resolved MARGO from admit at OSH with Cr 1.10 10/16 Cr now 0.43 Aim for normovolemia Endocrine: Serum glucose 126 - Trend on daily BMP - Blood glucose goal 100-180mg/dl FEN: IVF:None Daily K+ Electrolyte protocol in place Magnesium goal >2.0, i-Earl goal > 1.0, Potassium goal >4.0 mEq/L Prophylaxis Review: A)GI: [id number] B) Lines:Yes; Central Line; Indication: Frequent blood draws; Type: Internal jugular- Remove today C) Urinary Catheter:No D) Antibiotic Usage:Yes; Infection present or suspected: Lung; Pneumonia E) VTE:Pharmacological prophylaxis; SQ Heparinand Mechanical prophylaxis; Sequential compression device F) Isolation:Droplet G)Seizures:na I) Restraints: Patient assessed for need for restraints. Disposition/Family:Require ICU monitoring Primary service:NEICU Consults: ENT, ID, PT/OT, Dietary, Wound Team SUBJECTIVE Etelvina Alonso is a 58 y.o. female. Overnight Events: No new events noted. OBJECTIVE Vital Signs: Last Filed Vital Signs: 24 Hour Range BP: 132/70 (10/31 699) Temp: 37.2 C (98.9 F) (10/31 0400) Pulse: 86 (10/31 699) Respirations: 28 PER MINUTE (10/31 699) SpO2: 100 % (10/31 699) O2 Delivery: Tracheal Tube (10/31 699) BP: (70-161)/(43-103) Temp: [37.2 C (98.9 F)-37.6 C (99.6 F)] Pulse: [56-137] Respirations: [14 PER MINUTE-32 PER MINUTE] SpO2: [98 %-100 %] O2 Delivery: Tracheal Tube Intensity Pain Scale (Self Report): (not recorded) Vitals: 10/28/18 0500 10/29/18 0500 10/30/18 0400 Weight: 52.6 kg (115 lb 15.4 oz) 51.7 kg (113 lb 15.7 oz) 51.5 kg (113 lb 8.6 oz ) Artificial airway: Tracheostomy Tube Ventilator/ Respiratory Therapy: Yes: Weaning readiness screen (RT Only):: Implement protocol Weaning readiness screen Met (RT Only):: Yes NIF: [-20 cm H2O] Weaning Minute Volume (L/min): [8.2 L/min] Weaning Tidal Vol (mL) (Calc.): [373 mL] $$ Vital Capacity (mL): [797 ml] Weaning Respiratory Rate: [22 breaths/min] RSBI (Calculated): [59] Mode: PS/CPAP Set Vt (ml): [390 milliliters] Tidal Volume Spont (mL): [344 milliliters-405 milliliters] Set RR: [16 breaths/minutes] Total Respiratory Rate (Breaths/Min): [19 breaths/minutes-27 breaths/minutes] Minute Volume (L/min): [7.65 liters/minutes-12.8 liters/minutes] O2%: [40 %] PIP Actual: [2 cm H20-16 cm H20] PEEP/CPAP: [5 cm H2O] PSupport: [5 cm H20-10 cm H20] Vent weaning trial: Per protocol Lines: Central Line and Peripheral Line Drains: None Intake/Output Summary: (Last 24 hours) Intake/Output Summary (Last 24 hours) at 10/31/2018 0744 Last data filed at 10/31/2018 0700 Gross per 24 hour Intake 2313.92 ml Output 1745 ml Net 568.92 ml Stool Occurrence: 1 Physical Exam: Blood pressure 132/70, pulse 86, temperature 37.2 C (98.9 F), height 162.6 cm (64"), weight 51.5 kg (113 lb 8.6 oz), SpO2 100 %. [place] coma score: E: 4 - Opens eyes on own M: 5- Localizes to pain V: 1 - Makes no noise Neuro: Mental Status:Alert&Oriented x 3, remains intubated Cranial Nerves: - Pupil exam: Size: R - 3mm, L - 4mmReactivity: brisk - Corneal reflex: R- presentL- present - Grimace/facial movement: present - Cough: present Motor: Moves all extremities spontaneously and to command RUE:Strength:4/5 RLE: Strength:4/5 LUE: Strength:4/5 LLE: Strength:4/5 Lungs:clear to auscultation bilaterally Pulmonary:Respiratory status:Stableon mechanical ventilation Heart:S1, S2 normal Abdomen:soft, non-tender. Bowel sounds normal. No masses, no organomegaly Extremities:extremities normal, atraumatic, no cyanosis or edema Skin:Skin color, texture, turgor normal. No rashes or lesions Point of Care Testing: (Last 24 hours) Glucose: (!) 126 (10/31/18 0250) Lab Review: Pertinent labs reviewed Radiology and Other Diagnostic Procedures Review: Pertinent radiologic and diagnostic procedures reviewed. Mica Javed APRN Date: 10/31/[id number] I spent 45 minutes managing the care of this patient. Mrs. 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 Pt stating, "I don't feel like I can breathe." NEICU and RT at bedside. Pt HR 100-120. Orders to administer 0.5 mg Ativan. Ativan administered. Pt states breathing is easier and appears less anxious after administration. 1630- Pt stating she is beginning to feel more anxious due to "neck hurting" at trach site. Fentanyl 25 mcg and Oxy 10 mg administered. 1500- Pt pain and anxiety improved upon assessment and pt report. 1800- Pt increasingly anxious upon assessment. NEICU at bedside. Pt HR sustaining 120's. Orders to administer 1 mg Ativan. Ativan administered. Pt still anxious post-Ativan administration. NEICU notified of pt's continued anxiety and 1 mg more Ativan administered at 1830. 1850- Pt still anxious. Pt denying pain. HR sustaining 130's. RR 30-40. NEICU notified and states they will come see pt shortly. Orders to continue to monitor and assess. This RN at bedside. * Kelly Vitale RD - 10/30/2018 4:30 PM CDT CLINICAL NUTRITION Clinical Nutrition Follow-Up Summary NAME:Etelvina Alonso :1960 AGE: 58 y.o. ADMISSION DATE: 10/19/2018 DAYS ADMITTED: LOS: 11 days Nutrition Assessment of Patient: Malnutrition Assessment: Does not meet criteria Current Oral Intake: NPO Estimated Calorie Needs: 1585(30 kcal/kg @ 52.8 kg) Estimated Protein Needs: 80(1.5g/kg @ 52.8kg) Oral Diet Order: NPO Intake (calories) Daily Average : 1498 kilocalories(3 day EN ave 10/26-; 95% min goal; held 10/29 for trach) Intake (protein) Daily Average : 68 grams(3 day EN ave 10/26-; 85% min goal; held 10/29 for trach) Current EN Order: Isosource 1.5 @ 50 ml/hr + 150 ml water bolus Q6hr. At goal would provide 1800 kcal, 82 gm protein and 912 ml free water from EN at goal with additional 600 ml water from ordered boluses. Comments: 58 yo female with hx of COPD, HTN, HLD, CAD s/p CABG in 07/2018 with non- healing leg wounds who presented to an OSH on 10/16 with shortness of breath and chest pains and was found to have a RUL pneumonia. She was intubated on 10/17 secondary to worsening respiratory status and AMS. On 10/19, CTA showed R temporal lobe intraparenchymal air and surrounding edema. Transferred to [facility] for escalation of care. Pt remains intubated and sedated on Precedex now via trach placed 10/29. NGT in place. EN of Isosource 1.5 back to 50 ml/hr. 3- day EN ave 10/26- 95% min kcal goal and 85% min protein goal. Obtained subjective data from pt 10/29 prior to OR. Pt notes regular diet PRODUCTION CONTROL TECHNOLOGIST with good intake and stable wt. New small stage III pressure injury to sacrum. On vitamin C and zinc supplementation. Recommendation: Recommend Isosource 1.5 @ goal of 45 ml/hr and add 1 pack Prosource per day to provide 1680 kcal, 88 gm protein and 820 ml free water from EN at goal. Additional fluids per primary team. Intervention / Plan: updated kcal/protein goals with stage III pressure injury Will monitor EN tolerance/provision and wt trends, GI symptoms, labs, meds, I/ Os Obtained subjective information as able Nutrition Diagnosis: Altered GI function Etiology: respiratory status s/p pneumocephalus Signs & Symptoms: NPO status with need for EN to meet nutritional needs Increased nutrient needs, specify:(kcal/protein) Etiology: demands for wound healing Signs & Symptoms: stage III pressure injury to Goals: EN tolerated and meeting >85% of nutritional needs Time Frame: Throughout Stay Status: Met;Ongoing Kelly Vitale, MS,RD, LD, CNSC *[id number] * Benny Sepulveda MD - 10/30/2018 3:16 PM CDT Infectious Disease Progress Note Name: Etelvina Alonso Today's Date: 10/30/2018 Admission Date: 10/19/2018 Consulted for Cerebritis suspected Type of consult: Co-management w/signed orders Assessment: Strep pneumo bacteremia Bilateral LE wounds due to CABG vein harvest, both tracking deep, L with purulent drainage Pneumocephalus with surrounding edema on CTA head 10/19/18 at OSH, cerebritis, possible developing abscess in basal right temporal lobe on MRI head 10/20/18 Influenza A with possible HCAP Acute hypoxic/hypercarbic respiratory failure, s/p tracheostomy 10/29/18 S/p mastoidectomy on the right, bilateral myringotomy w/tympanostomy tube placement 10/29/18 -Past concern for biliateral LE wound infection as below -10/16 presented to [facility] with a few days of fever, cough -10/16/18: BC x 2 Strep Pneumo R- Clindamycin and erythromcyin S: ceftriaxone ( MARCY 0.094), PCN (MARCY 0.064), levo, TMP/S, vanc. Rapid Flu Ag negative. MRSA nasal screen negative. 10/17/18: Sputum culture: Yeast and normal chelsey -Rapid mental status deterioration, intubated -CTA head 10/19/18 at OSH, small area of intraparenchymal air above the mastoid air cells and some edema around that area, with concern for possible infection. Pt was transferred to for further management -10/19: CXR patchy mixed alveolar and interstitial opacities -10/20: Tracheal aspirate: < 10 PMN, < 10 squam, no orgs. Moderate growth no significant chelsey -10/20: LLE swab: Pseudomonas aeruginosa (R - meropenem, ceftazidime, pip/tazo; S - cefepime, tobramycin, gentamicin, ceftolozane/tazobactam and ceftazidime/ avibactam) -10/20: MRI head w/wo: Ovoid focus of diffusion restriction and partial rim enhancement in the basal right temporal lobe overlying the tegmen suggestive of focal cerebritis and developing abscess. Dependent diffusion restricting material within the lateral ventricles suspicious for ventriculitis. Thin complex left posterolateral convexity subdural fluid collection with diffusion restriction suggestive of thin subdural empyema. -10/23: JYOTSNA: There is a small echogenic mass on the coaptation line of the aortic valve. Appears to likely be associated with the left coronary cusp. A vegetation cannot be ruled out. 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 No stenosis. No regurgitation. -10/23: CSF - WBCs 23 (86% lymphocytes, 9% mono/histocytes, 3% neutrophils), RBCs 1, glucose 70, protein 70. Cx NGTD Echogenic mass seen on AV - 10/23/18 JYOTSNA: There is a small echogenic mass on the coaptation line of the aortic valve. Appears to likely be associated with the left coronary cusp. A vegetation cannot be ruled out. 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 No stenosis. No regurgitation. Concern for bilateral LE wound infection, [facility] Bilateral vein harvest sites on lower extremities from CABG in [facility], 07/2018 Multiple cultures in [facility]. 09/07/18- Culture from R leg incision - Staph aureus MSSA, enterobacter cloace. 09/19/18 L leg pseudomonas R-Aztreonam Throat August and early September 2018 patient received courses of cefdinir, clindamycin, doxycycline, and trimethoprim/sulfa of unclear duration. 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 DEPUTY COURT infection likely S pneumo, which is well covered by the cefepime and also has good DEPUTY [address] penetration. Will tentatively plan for 2 weeks (from 10/23) of cefepime to treat both the LE wound infections and Strep pneumo bacteremia and suspected DEPUTY [address] abscess. Tentative last day of cefepime would be 11/05. -After cefepime she could be transitioned to ceftriaxone 2 g IV BID for meningitis. This would continue until at least 11/12 (4 weeks from 10/16). -Monitor for abx side effects -Continue oseltamivir for influenza x 10 days total, through 10/30 (today) -If on DC pt transfers to [facility], their ID physicians will take over ID care. Shan Walker DO Infectious Diseases Fellow Pager # [phone] Discussed with attending on service, Dr. Sepulveda I have seen, personally evaluated, and discussed the patient's care with Dr. Walker, Infectious Diseases Fellow. I agree with the subjective notations, objective findings and agree with the plan of care as documented in this note with edits made by me as necessary. Benny Sepulveda MD Automation Engineering Technician Division of Infectious Diseases Interval History Etelvina Alonso is a 58 y.o. female with a PMH significant for CABG (07/2018) who presented to [facility] in [facility] on 10/16/18 after noting worsening cough and sternal pain from recent sternotomy and non-healing LE graft sites. Transferred to [facility] on 10/19/18 for right temporal lobe intraparenchymal air and edema seen on CTA. Seen this AM lying in bed. When asked yes and no questions, she denied any subjective fevers or chills, n/v, diarrhea, abdominal pain, or rashes. She stated she had a headache, which has been unchanged for approximately a month. She denied any vision changes or numbness or tingling. Afebrile WBC 11.7 Cr 0.40 ROS As mentioned in 'Interval History' otherwise 10-point ROS negative Antimicrobial Start date End date Cefepime 10/16/18-10/18/18, 10/23 active Ceftriaxone 10/18/18 10/20/18 Cefedinir 09/23/18 PRODUCTION CONTROL TECHNOLOGIST, uncertain timeframe Doxycycline 100 mg PO BID 09/06/18 PRODUCTION CONTROL TECHNOLOGIST, uncertain timeframe [id number] mg PO BID 08/23/18 PRODUCTION CONTROL TECHNOLOGIST, uncertain timeframe Fluconazole 150 mg PO QD 08/17/18 PRODUCTION CONTROL TECHNOLOGIST, uncertain timeframe Vancomycin 10/20/1810/24 Ampicillin 10/20/18 10/20/18 Fluconazole 10/20/18 10/26/18 Oseltamivir 10/21/18 active Meropenem 10/20/1810/23 Bactrim 08/17/18 PRODUCTION CONTROL TECHNOLOGIST, uncertain timeframe Estimated Creatinine Clearance: 72.1 mL/min (based on SCr of 0.44 mg/dL). Cardenas Results 10/24 C diff: negative 10/23 CSF GS/cx: rare neutrophils, no organisms seen, NGTD; WBCs 23 (86% lymphocytes, 9% mono/histocytes, 3% neutrophils), RBCs 1, glucose 70, protein 70 10/22 Blood cx: NG 10/20 LLE wound swab: Pseudomonas aeruginosa (R - meropenem, ceftazidime, pip/tazo ; S - cefepime, tobramycin, gentamicin, ceftaz/rachele, ceftolozane/tazo) 10/20 Tracheal aspirate: moderate growth no significant chelsey 10/20 Respiratory PCR panel: (+) influenza A 10/20 Blood cx: NGTD Prior cultures 10/16/18 Blood cx (from [facility]): Strep Pneumo R- Clindamycin and erythromcyin Susceptible: ceftriaxone-dilut method 0.094, levofloxacin, penicillin e-dilut method 0.064, trimethoprim, and vancomycin 09/19/18 L leg: pseudomonas R-Aztreonam 09/07/18 Culture from R leg incision: Staph aureus MSSA, Enterobacter cloace 08/13/18 Sputum cx: Loretta glabrata and dublinesis Medications Scheduled Meds: ascorbic acid (VITAMIN C) tablet 500 mg 500 mg Per NG tube QDAY aspirin chewable tablet 81 mg 81 mg Per OG Tube QDAY atorvastatin (LIPITOR) tablet 20 mg 20 mg Per OG Tube QHS budesonide respule (PULMICORT) nebulizer solution 0.5 mg 0.5 mg Inhalation BID cefepime (MAXIPIME) 2 g in sodium chloride 0.9% (NS) 100 mL IVPB (MB+) 2 g Intravenous Q8H* [START ON 11/06/2018] cefTRIAXone (ROCEPHIN) IVP 2 g 2 g Intravenous Q12H* chlorhexidine gluconate (PERIDEX) 0.12 % solution 15 mL 15 mL Swish & Spit BID collagenase (SANTYL) topical ointment Topical BID docusate (COLACE) oral solution 100 mg 100 mg Per OG Tube BID famotidine (PEPCID) oral suspension 20 mg 20 mg Per NG tube BID heparin (porcine) PF syringe 5,000 Units 5,000 Units Subcutaneous Q8H milk of magnesia (CONC) oral suspension 10 mL 10 mL Per OG Tube QDAY nicotine (NICODERM CQ STEP 1) 21 mg/day patch 1 patch 1 patch Transdermal QDAY( 21) ofloxacin (FLOXIN) 0.3 % (ophthalmic for otic use) solution 4 drop 4 drop Both Ears TID oseltamivir (TAMIFLU) oral suspension 75 mg 75 mg Per NG tube BID potassium chloride oral solution 20 mEq 20 mEq Per OG Tube QDAY senna/docusate (SENOKOT-S) solution 10 mL 10 mL Per OG Tube BID sertraline (ZOLOFT) tablet 50 mg 50 mg SEE ADMIN INSTRUCTIONS QHS zinc sulfate capsule 220 mg 220 mg Per NG tube QDAY Continuous Infusions: dexmedetomidine (PRECEDEX) 400 mcg/NS 100 ml IV drip Stopped (10/30/18 1201 ) PRN and Respiratory Meds:acetaminophen Q4H PRN, calcium gluconate IV PRN (Heating Operators Engineer from Rx) AND Ionized Calcium PRN AND Notify Physician Ongoing, fentaNYL citrate PF Q1H PRN, ipratropium/albuterol Q4H PRN, magnesium sulfate PRN AND [CANCELED] Magnesium PRN AND Notify Physician Ongoing, oxyCODONE Q4H PRN, pancrelipase 20,000 Units/ sodium bicarbonate 650 mg(#) PRN ( Heating Operators Engineer from Rx), potassium chloride SR PRN OR potassium chloride PRN Physical Examination Vital Signs: Last Vital Signs: 24 Hour Range BP: 95/62 (10/30 1400) Temp: 37.2 C (99 F) (10/30 1200) Pulse: 74 (10/30 1500) Respirations: 14 PER MINUTE (10/30 1500) SpO2: 100 % (10/30 1500) O2 Delivery: Tracheal Tube (10/30 1400) SpO2 Pulse: 69 (10/30 1500) BP: (70-121)/(44-72) Temp: [37.1 C (98.8 F)-37.2 C (99 F)] Pulse: [55-115] Respirations: [13 PER MINUTE-29 PER MINUTE] SpO2: [97 %-100 %] O2 Delivery: Tracheal Tube General appearance: alert and nodding appropriately to questions H&N: mucus membranes moist; trach in place with scant bleeding around the site Lungs: clear breath sounds on anterior auscultation Heart: normal rate; no murmurs appreciated Abdomen: soft, non-tender, non-distended, normoactive bowel sounds, Ext: healing ulcerations on medial aspect of R and L extremities from prior vein grafting Skin: no rash Msk: no joint swelling or redness Lines/drains/tubes: CVC in R IJ; Salomon; NDT Laboratory Hematology Recent Labs 10/28/18 0343 10/29/188 10/30/18 0405 WBC 11.9* 11.7* 11.0 HGB 7.5* 7.5* 8.6* HCT 23.0* 23.0* 25.4* PLTCT 454* 480* 481* Chemistry Recent Labs 10/28/18 0343 10/28/18 1414 10/29/18 0418 10/30/18 0405 NA 138 -- 138 135* K 3.9 5.1 4.4 4.1 CL 107 -- 107 106 CO2 26 -- 25 25 BUN 14 -- 14 12 CR 0.42 -- 0.40 0.44 GFR >60 -- >60 >60 GLU 172* -- 131* 146* CA 8.9 -- 9.8 9.3 PO4 4.4 -- 4.8* 5.8* Microbiology, Radiology and other Diagnostics Review Microbiology reviewed. Pertinent radiology reviewed. Complexity of medical decision making is high due to the multi-system nature of the infectious disease process or potential for limb-threatening infection as well as concerns including but not limited to complexity of the patient's underlying illnesses, the identification and sensitivities of the organisms being treated, the potential for antimicrobial toxicities and drug-drug interactions, concerns regarding immunologic function, and interplay of other issues. Meningitis, brain abscess, lab and imaging review, summary of old records, intensive abx monitoring. * Magali Patel, MARI - 10/30/2018 1:00 PM CDT NEICU notified of pt's MAPs sustaining <60. All other VSS. Pt A&Ox4. Orders to continue to monitor and assess and notify of any change in alertness or MAPs sustaining <60 after 1300. Will continue to monitor and assess. Pt's MAPs >60 after 1300. VSS. * Elenita Butler OT - 10/30/2018 11:39 AM CDT OCCUPATIONAL THERAPY RE-ASSESSMENT NOTE Patient Name: Etelvina Alonso Room/Bed: [id number] Admitting Diagnosis: altered mental status Mobility Progressive Mobility Level: Sit on edge of bed Distance Walked (feet): 0 ft Level of Assistance: Assist X2 Assistive Device: Hand Held Time Tolerated: 11-30 minutes Activity Limited By: Lines / Medical Devices;Fatigue(anxiety) Subjective Pertinent Dx per Physician: HTN, HLD, no nhealing leg wounds, CAD s/p CABG in in [place] who presented to an OSH on 10/16 with shortness of breath and chest pains and found to have a RUL pneumonia. She was intubated on 10/17 2 worsening respiratory status and AMS. Workup showed cerebritis, tegmen dehisence , encephalocele, possible temporal lobe abscess. Sternal nonunion, 2 loosened sternal wires, nonop per CTS. s/p trach, B myringotomy and tube placement, R mastoidectomy 10/29 Precautions: Falls;NPO Pain / Complaints: Patient agrees to participate in therapy Pain Level Current: 6 Severe pain Comments: pain in chest. RN aware and bringing medication Objective Psychosocial Status: Willing and Cooperative to Participate Persons Present: Physical Therapist;Student Vision Comment: visually attends to L and R, able to write on message board ADL's Comment: Total assist for all. Pt minimal assist X2 for bed mobility. Minimal assist X1 for static sitting balance, second person for lines. Pt declined grooming at edge of bed but able to do LE AROM. Anxious at times and needing cues to relax and slow her breathing. Activity Tolerance Endurance: 3/5 Tolerates 25-30 Minutes Exercise w/Multiple Rests Sitting Balance: 2+/5 Supports Self w/ 1 UE\\ Ventilator settings Ventilator Mode FiO2 (%) PEEP Pressure Support SpO2 (%) Respiratory Rate (RR) Location of Endotracheal tube (ETT) at the gums CPAP 40 5 5 Pre Activity:100 During Activity:99 Post Activity:98 Pre Activity:27 During Activity:42 Post Activity:33 trach Cognition Cognition Comment: no obvious deficits. Will continue to assess during ADLs UE AROM Overall BUE AROM WNL: Yes UE Strength / Tone Overall Strength / Tone: WNL BUE Strength 5/5 Education Persons Educated: Patient Teaching Methods: Verbal Instruction Patient Response: Return Demonstration Topics: Role of OT, Goals for Therapy Goal Formulation: With Patient Assessment Assessment: Decreased ADL Status;Decreased Endurance;Decreased Self-Care Trans; Decreased High-Level ADLs Prognosis: Good;w/Cont OT s/p Acute Discharge AM-PAC 6 Clicks Daily Activity Inpatient Putting on and taking off regular lower body clothes?: Total Bathing (Including washing, rinsing, drying): Total Toileting, which includes using toilet, bedpan, or urinal: Total Putting on and taking off regular upper body clothing: Total Taking care of personal grooming such as brushing teeth: Total Eating meals?: Total Daily Activity Raw Score: 6 Standardized (t-scale) score: 17.07 CMS 0-100% Score: 100 CMS G Code Modifier: CN Plan OT Frequency: 5x/week OT Plan for Next Visit: bed mobility, sitting balance/sitting tolerance, grooming at edge of bed ADL Goals Patient Will Perform Grooming: w/ Minimum Assist;in Chair Patient Will Perform LE Dressing: w/ Minimum Assist Other ADL Goal 1: Pt to sit edge of bed with minimal assist X3 minutes with stable vitals(MET) Functional Transfer Goals Pt Will Perform All Functional Transfers: Minimum Assist Pt Will Transfer To Bedside Commode: w/ Minimum Assist Arm Goals Pt Will Perform AROM: 10 Reps(all planes of motion with stable vitals) OT Discharge Recommendations OT Discharge Recommendations: Inpatient Setting Equipment Recommendations: Too early to be determined Therapist: Elenita Butler OT Date: 10/30/2018 * Olimpia Broderick, PT - 10/30/2018 11:36 AM CDT PHYSICAL THERAPY ASSESSMENT MOBILITY: Mobility Progressive Mobility Level: Sit on edge of bed Distance Walked (feet): 0 ft Level of Assistance: Assist X2 Assistive Device: Hand Held Time Tolerated: 11-30 minutes Activity Limited By: Lines / Medical Devices;Fatigue(anxiety) SUBJECTIVE: Subjective Significant hospital events: Presented to an OSH on 10/16 with shortness of breath and chest pains and found to have a RUL pneumonia. She was intubated on 2/2 worsening respiratory status and AMS. On 10/19, CTA with R temporal lobe intraparenchymal air and surrounding edema. Transferred to [facility] for escalation of care. Flail sternum and pna contributed to difficulty weaning vent. Repeat MRI showed right inferior temporal cerebritis that has coalesced into an abscess. Bilateral myringotomy and tube, Mastoidectomy, and Tracheostomy on . Mental / Cognitive Status: Alert;Cooperative;Follows Commands Persons Present: Occupational Therapist;Student;Nursing Staff Pain: Patient has no complaint of pain Ambulation Assist: Independent Mobility in Community without Device Home Situation: Lives with Family Ventilator Mode FiO2 (%) PEEP Pressure Support SpO2 (%) Respiratory Rate (RR) CPAP 40 5 5 Pre Activity: 100 During Activity: 99 Post Activity: 98 Pre Activity: 27 During Activity: 42 Post Activity: 33 ROM: ROM LE ROM WFL: Yes STRENGTH: Strength Overall Strength: WFL BED MOBILITY/TRANSFERS: Bed Mobility/Transfers Bed Mobility: Supine to Sit: Minimal Assist;x2 People;Assist with Trunk;Head of Bed Elevated;Use of Rail Bed Mobility: Sit to Supine: Minimal Assist;x2 People;Assist with B LE;Assist with Trunk;Bed Flat;No Rail End Of Activity Status: In Bed;Nursing Notified;Instructed Patient to Request Assist with Mobility;Instructed Patient to Use Call Light(bed alarm on) BALANCE: Balance Sitting Balance: Static Sitting Balance;No UE Support;1 UE Support;Minimal Assist EDUCATION: Education Persons Educated: Patient Patient Barriers To Learning: Anxiety Interventions: Repetition of Instructions Teaching Methods: Verbal Instruction Patient Response: More Instruction Required Topics: Plan/Goals of PT Interventions;Importance of Increasing Activity; Recommend Continued Therapy ASSESSMENT/PROGRESS: Assessment/Progress Impaired Mobility Due To: Decreased Activity Tolerance;Medical Status Limitation Assessment/Progress: Should Improve w/ Continued PT AM-PAC 6 Clicks Basic Mobility Inpatient Turning from your back to your side while in a flat bed without using bed rails : A Little Moving from lying on your back to sitting on the side of a flatbed without using bedrails : Total Moving to and from a bed to a chair (including a wheelchair): Total Standing up from a chair using your arms (e.g. wheelchair, or bedside chair): Total To walk in hospital room: Total Climbing 3-5 steps with a railing: Total Raw Score: 8 Standardized (T-scale) Score: 22.61 Basic Mobility CMS 0-100%: 85.35 CMS G Code Modifier for Basic Mobility: CM GOALS: Goals Goal Formulation: With Patient Time For Goal Achievement: 5 days Patient Will Go Supine To/From Sit: w/ Stand By Assist Patient Will Transfer Bed/Chair: w/ Minimal Assist PLAN: Plan Treatment Interventions: Mobility Training;Strengthening Plan Frequency: 5 Days per Week PT Plan for Next Visit: Trial stand transfer vs. transfer to chair. RECOMMENDATIONS: PT Discharge Recommendations PT Discharge Recommendations: Inpatient Setting Therapist: Olimpia Broderick PT Date: 10/30/2018 * Abbie Cleaning RN - 10/30/2018 8:15 AM CDT Wound Ostomy Note NAME:Etelvina Alonso :1960 AGE: 58 y.o. ADMISSION DATE: 10/19/2018 DAYS ADMITTED: LOS: 11 days Reason for Visit: pressure injury Stage II or greater Assessment/Plan: Active Problems: Pneumonia due to infectious organism Acute respiratory failure with hypoxia and hypercapnia (HCC) Altered mental status, unspecified Paroxysmal atrial fibrillation (HCC) Pneumocephalus Cerebritis Influenza A Abscess of brain Pressure Injury 10/24/18 0800 No Sacrum Stage 3 (Active) 10/24/18 08 Pressure Injury Present On Inpatient Admission: N Pressure Injury Orientation: Wound Location: Sacrum Pressure Injury Stages: Stage 3 If this pressure injury is suspected to be device related, please select the device:: Wound Image 10/30/2018 8:14 AM Wound Dressing Status None 10/30/2018 8:14 AM Wound Dressing and / or Treatment Criticaid Barrier Cream 10/30/2018 8:14 AM Wound Drainage Amount None 10/30/2018 8:14 AM Wound Base Assessment Moist;Pale;Yellow 10/30/2018 8:14 AM Surrounding Skin Assessment Dry;Intact;[place] 10/30/2018 8:14 AM Wound Status (Wound Team Only) Being Treated 10/30/2018 8:14 AM Wound Length (cm) 0.6 cm 10/30/2018 8:14 AM Wound Width (cm) 0.3 cm 10/30/2018 8:14 AM Wound Depth (cm) 0.2 cm 10/30/2018 8:14 AM Wound Surface Area (cm^2) 0.18 cm^2 10/30/2018 8:14 AM Wound Volume (cm^3) 0.04 cm^3 10/30/2018 8:14 AM Wound Healing % (Wound Team Only) -100 10/30/2018 8:14 AM RECOMMEND: Coccyx - - Apply Criticaid barrier cream BID and PRN to protect skin from moisture related to urine/stool. - Avoid briefs if possible and use only one disposable pad at at time underneath pt to prevent heat and moisture trapping against skin. - Implement q2 hr turning schedule using foam wedge for support. - HOB less than or equal to 30 degrees, unless contraindicated, to prevent shearing at coccyx/sacrum. Abbie Cleaning RN, BSN, ON Wound/Ostomy Nursing Consult Service Office: [phone] Pager: [phone] Wound/Ostomy Team Pager (After Hours/Weekends): [phone] Will continue to follow. * Shan Walker DO - 10/30/2018 6:47 AM CDT Infectious Disease Progress Note Name: Etelvina Alonso Today's Date: 10/30/2018 Admission Date: 10/19/2018 Consulted for Cerebritis suspected Type of consult: Co-management w/signed orders Assessment: Strep pneumo bacteremia Bilateral LE wounds due to CABG vein harvest, both tracking deep, L with purulent drainage Pneumocephalus with surrounding edema on CTA head 10/19/18 at OSH, cerebritis, possible developing abscess in basal right temporal lobe on MRI head 10/20/18 Influenza A with possible HCAP Acute hypoxic/hypercarbic respiratory failure, s/p tracheostomy 10/29/18 S/p mastoidectomy on the right, bilateral myringotomy w/tympanostomy tube placement 10/29/18 -Past concern for biliateral LE wound infection as below -10/16 presented to [facility] [place] with a few days of fever, cough -10/16/18: BC x 2 Strep Pneumo R- Clindamycin and erythromcyin S: ceftriaxone ( MARCY 0.094), PCN (MARCY 0.064), levo, TMP/S, vanc. Rapid Flu Ag negative. MRSA nasal screen negative. 10/17/18: Sputum culture: Yeast and normal chelsey -Rapid mental status deterioration, intubated -CTA head 10/19/18 at OSH, small area of intraparenchymal air above the mastoid air cells and some edema around that area, with concern for possible infection. Pt was transferred to for further management -10/19: CXR patchy mixed alveolar and interstitial opacities -10/20: Tracheal aspirate: < 10 PMN, < 10 squam, no orgs. Moderate growth no significant chelsey -10/20: LLE swab: Pseudomonas aeruginosa (R - meropenem, ceftazidime, pip/tazo; S - cefepime, tobramycin, gentamicin, ceftolozane/tazobactam and ceftazidime/ avibactam) -10/20: MRI head w/wo: Ovoid focus of diffusion restriction and partial rim enhancement in the basal right temporal lobe overlying the tegmen suggestive of focal cerebritis and developing abscess. Dependent diffusion restricting material within the lateral ventricles suspicious for ventriculitis. Thin complex left posterolateral convexity subdural fluid collection with diffusion restriction suggestive of thin subdural empyema. -10/23: JYOTSNA: There is a small echogenic mass on the coaptation line of the aortic valve. Appears to likely be associated with the left coronary cusp. A vegetation cannot be ruled out. 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 No stenosis. No regurgitation. -10/23: CSF - WBCs 23 (86% lymphocytes, 9% mono/histocytes, 3% neutrophils), RBCs 1, glucose 70, protein 70. Cx NGTD Echogenic mass seen on AV - 10/23/18 JYOTSNA: There is a small echogenic mass on the coaptation line of the aortic valve. Appears to likely be associated with the left coronary cusp. A vegetation cannot be ruled out. 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 No stenosis. No regurgitation. Concern for bilateral LE wound infection, [facility] Bilateral vein harvest sites on lower extremities from CABG in [facility], 07/2018 Multiple cultures in [facility]. 09/07/18- Culture from R leg incision - Staph aureus MSSA, enterobacter cloace. 09/19/18 L leg pseudomonas R-Aztreonam Throat August and early September 2018 patient received courses of cefdinir, clindamycin, doxycycline, and trimethoprim/sulfa of unclear duration. 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 DEPUTY COURT infection likely S pneumo, which is well covered by the cefepime and also has good DEPUTY COURT penetration. Will tentatively plan for 2 weeks (from 10/23) of cefepime to treat both the LE wound infections and Strep pneumo bacteremia and suspected DEPUTY [address] abscess. Tentative last day of cefepime would be 11/05. -After cefepime she could be transitioned to ceftriaxone 2 g IV BID for meningitis. This would continue until at least 11/12 (4 weeks from 10/16). -Monitor for abx side effects -Continue oseltamivir for influenza x 10 days total, through 10/30 (today) Shan Walker DO Infectious Diseases Fellow Pager # [phone] Discussed with attending on service, Dr. Sepulveda Interval History Etelvina Alonso is a 58 y.o. female with a PMH significant for CABG (07/2018) who presented to [facility] in [facility] on 10/16/18 after noting worsening cough and sternal pain from recent sternotomy and non-healing LE graft sites. Transferred to [facility] on 10/19/18 for right temporal lobe intraparenchymal air and edema seen on CTA. Seen this AM lying in bed. When asked yes and no questions, she denied any subjective fevers or chills, n/v, diarrhea, abdominal pain, or rashes. She stated she had a headache, which has been unchanged for approximately a month. She denied any vision changes or numbness or tingling. Afebrile WBC 11.7 Cr 0.40 ROS As mentioned in 'Interval History' otherwise 10-point ROS negative Antimicrobial Start date End date Cefepime 10/16/18-10/18/18, 10/23 active Ceftriaxone 10/18/18 10/20/18 Cefedinir 09/23/18 PRODUCTION CONTROL TECHNOLOGIST, uncertain timeframe Doxycycline 100 mg PO BID 09/06/18 PRODUCTION CONTROL TECHNOLOGIST, uncertain timeframe [id number] mg PO BID 08/23/18 PRODUCTION CONTROL TECHNOLOGIST, uncertain timeframe Fluconazole 150 mg PO QD 08/17/18 PRODUCTION CONTROL TECHNOLOGIST, uncertain timeframe Vancomycin 10/20/1810/24 Ampicillin 10/20/18 10/20/18 Fluconazole 10/20/18 10/26/18 Oseltamivir 10/21/18 active Meropenem 10/20/1810/23 Bactrim 08/17/18 PRODUCTION CONTROL TECHNOLOGIST, uncertain timeframe Estimated Creatinine Clearance: 72.1 mL/min (based on SCr of 0.44 mg/dL). Cardenas Results 10/24 C diff: negative 10/23 CSF GS/cx: rare neutrophils, no organisms seen, NGTD; WBCs 23 (86% lymphocytes, 9% mono/histocytes, 3% neutrophils), RBCs 1, glucose 70, protein 70 10/22 Blood cx: NG 10/20 LLE wound swab: Pseudomonas aeruginosa (R - meropenem, ceftazidime, pip/tazo ; S - cefepime, tobramycin, gentamicin, ceftaz/rachele, ceftolozane/tazo) 10/20 Tracheal aspirate: moderate growth no significant chelsey 10/20 Respiratory PCR panel: (+) influenza A 10/20 Blood cx: NGTD Prior cultures 10/16/18 Blood cx (from [facility] [place]): Strep Pneumo R- Clindamycin and erythromcyin Susceptible: ceftriaxone-dilut method 0.094, levofloxacin, penicillin e-dilut method 0.064, trimethoprim, and vancomycin 09/19/18 L leg: pseudomonas R-Aztreonam 09/07/18 Culture from R leg incision: Staph aureus MSSA, Enterobacter cloace 12/31/18 Sputum cx: Loretta glabrata and dublinesis Medications Scheduled Meds: ascorbic acid (VITAMIN C) tablet 500 mg 500 mg Per NG tube QDAY aspirin chewable tablet 81 mg 81 mg Per OG Tube QDAY atorvastatin (LIPITOR) tablet 20 mg 20 mg Per OG Tube QHS budesonide respule (PULMICORT) nebulizer solution 0.5 mg 0.5 mg Inhalation BID cefepime (MAXIPIME) 2 g in sodium chloride 0.9% (NS) 100 mL IVPB (MB+) 2 g Intravenous Q8H* [START ON 11/06/2018] cefTRIAXone (ROCEPHIN) IVP 2 g 2 g Intravenous Q12H* chlorhexidine gluconate (PERIDEX) 0.12 % solution 15 mL 15 mL Swish & Spit BID collagenase (SANTYL) topical ointment Topical BID docusate (COLACE) oral solution 100 mg 100 mg Per OG Tube BID famotidine (PEPCID) oral suspension 20 mg 20 mg Per NG tube BID milk of magnesia (CONC) oral suspension 10 mL 10 mL Per OG Tube QDAY nicotine (NICODERM CQ STEP 1) 21 mg/day patch 1 patch 1 patch Transdermal QDAY( 21) ofloxacin (FLOXIN) 0.3 % (ophthalmic for otic use) solution 4 drop 4 drop Both Ears TID oseltamivir (TAMIFLU) oral suspension 75 mg 75 mg Per NG tube BID potassium chloride oral solution 20 mEq 20 mEq Per OG Tube QDAY senna/docusate (SENOKOT-S) solution 10 mL 10 mL Per OG Tube BID sertraline (ZOLOFT) tablet 50 mg 50 mg SEE ADMIN INSTRUCTIONS QHS zinc sulfate capsule 220 mg 220 mg Per NG tube QDAY Continuous Infusions: dexmedetomidine (PRECEDEX) 400 mcg/NS 100 ml IV drip 1 mcg/kg/hr (10/30/18 1920) PRN and Respiratory Meds:acetaminophen Q4H PRN, calcium gluconate IV PRN (Heating Operators Engineer from Rx) AND Ionized Calcium PRN AND Notify Physician Ongoing, fentaNYL citrate PF Q1H PRN, ipratropium/albuterol Q4H PRN, magnesium sulfate PRN AND [CANCELED] Magnesium PRN AND Notify Physician Ongoing, oxyCODONE Q4H PRN, pancrelipase 20,000 Units/ sodium bicarbonate 650 mg(#) PRN ( Heating Operators Engineer from Rx), potassium chloride SR PRN OR potassium chloride PRN Physical Examination Vital Signs: Last Vital Signs: 24 Hour Range BP: 90/59 (10/30 617) Temp: 37.2 C (98.9 F) (10/30 0400) Pulse: 61 (10/30 617) Respirations: 23 PER MINUTE (10/30 617) SpO2: 100 % (10/30 617) O2 Delivery: Tracheal Tube (10/30 599) SpO2 Pulse: 56 (10/30 0300) BP: (89-121)/(47-89) Temp: [36.8 C (98.2 F)-37.2 C (99 F)] Pulse: [55-115] Respirations: [13 PER MINUTE-30 PER MINUTE] SpO2: [97 %-100 %] O2 Delivery: Tracheal Tube General appearance: alert and nodding appropriately to questions H&N: mucus membranes moist; trach in place with scant bleeding around the site Lungs: clear breath sounds on anterior auscultation Heart: normal rate; no murmurs appreciated Abdomen: soft, non-tender, non-distended, normoactive bowel sounds, Ext: healing ulcerations on medial aspect of R and L extremities from prior vein grafting Skin: no rash Msk: no joint swelling or redness Lines/drains/tubes: CVC in R IJ; Salomon; NDT Laboratory Hematology Recent Labs 10/28/18 0343 10/29/18 0418 10/30/18 0405 WBC 11.9* 11.7* 11.0 HGB 7.5* 7.5* 8.6* HCT 23.0* 23.0* 25.4* PLTCT 454* 480* 481* Chemistry Recent Labs 10/28/18 0343 10/28/18 1414 10/29/18 0418 10/30/18 0405 NA 138 -- 138 135* K 3.9 5.1 4.4 4.1 CL 107 -- 107 106 CO2 26 -- 25 25 BUN 14 -- 14 12 CR 0.42 -- 0.40 0.44 GFR >60 -- >60 >60 GLU 172* -- 131* 146* CA 8.9 -- 9.8 9.3 PO4 4.4 -- 4.8* 5.8* Microbiology, Radiology and other Diagnostics Review Microbiology reviewed. Pertinent radiology reviewed. * Pankaj Bunn MD - 10/30/2018 6:28 AM CDT Neuro Critical Care Progress Note Etelvina Alonso Admission Date: 10/19/2018 LOS: 11 days Full Code ASSESSMENT/PLAN Patient Active Problem List Diagnosis Date Noted Pneumocephalus 10/26/2018 Cerebritis 10/26/2018 Influenza A 10/26/2018 Abscess of brain 10/26/2018 Paroxysmal atrial fibrillation (HCC) 10/25/2018 Altered mental status, unspecified 10/20/2018 Pneumonia due to infectious organism 10/19/2018 Acute respiratory failure with hypoxia and hypercapnia (HCC) 10/19/2018 Etelvina Alonso is a 58 y.o. female with history of HTN, HLD, non-healing leg wounds, CAD s/p CABG in 07/2018 who presented to an OSH on 10/16 with shortness of breath and chest pains and found to have a RUL pneumonia. She was intubated on 10/17 2/2 worsening respiratory status and AMS. On 10/19, CTA with R temporal lobe intraparenchymal air and surrounding edema. Transferred to [facility] for escalation of care. Hospital and ICU course: 10/19: [facility]: DC amiodarone. Start spironolactone 12.5mg daily and lasix 20mg daily. Placed flexiseal.. Plan for OR Monday Neuro/ENT: Altered mental status; Meningitis; right temporal lobe abscess Q4 neurochecks PT/OT Sertraline HS NSG - No intervention planned S/p OR with ENT for tympanomastoidectomy (10/29) Sedation/Pain Management: PRN fentanyl, oxycodone and tylenol available -Assess for delirium daily Cardiac: HTN; HLD; CAD s/p CABG in 07/2018; Paroxysmal AF SBP goal: < 160 MAP goal > 65 Continue spironolactone - PRODUCTION CONTROL TECHNOLOGIST lisinopril on hold will discuss starting tomorrow PRODUCTION CONTROL TECHNOLOGIST atrovastatin and ASA Echo today: 35-40%, mitral valve borderline prolapse and regurg no vegetations JYOTSNA:There is a small echogenic mass on the coaptation line of the aortic valve. Appears to likely be associated with the left coronary cusp. A vegetation Respiratory: RUL Pneumonia Date of Intubation: 10/17 Reason: Airway protection - continue to attempt daily weaning trials, has been failing due to tachypnea when placed on pressure support - will get trach with ENT today PRODUCTION CONTROL TECHNOLOGIST budesonide Influenza virus positive GI: Feeding: NPO, Isosource 1.5 @ 50 ml/hr with 250 ml water every 6 hours - decrease free water to 150 ml every 6 hours today Bowel regimen, ensure daily BM (last BM 10/25) Fecal containment device Famotidine BID Heme: Trend daily CBC Hgb 7.5 (7.5), Plt 480 (453) SQ Heparin ASA S/p 1 unit (10/29) ID: Leukocytosis (improving); PNA; + Step pneumo bacteremia; Non-healing wounds on frequent Abx; thrush TMax 37.2 WBC 11.0 (11.7) ID consult appreciate recs Trend daily CBC Continue cefepime till 11/05 can switch to Rocephin 2 g IV BID after until 11/12 Tamiflu DC on 10/31 Aim for normothermia Renal: Trend daily BMP Resolved MARGO from admit at OSH with Cr 1.10 10/16 Cr now 0.44 (.40) Aim for normovolemia Intake/Output Summary (Last 24 hours) at 10/30/2018 0628 Last data filed at 10/30/2018 0600 Gross per 24 hour Intake 2379.66 ml Output 1605 ml Net 774.66 ml Endocrine: Serum glucose 131 - Trend on daily BMP - Blood glucose goal 100-180mg/dl FEN: IVF: None Daily K+ Electrolyte protocol in place Magnesium goal >2.0, i-Earl goal > 1.0, Potassium goal >4.0 mEq/L Prophylaxis Review: A)GI: [id number] B) Lines:Yes; Central Line; Indication: Frequent blood draws; Type: Internal jugular C) Urinary Catheter:Yes; Retain salomon due to: Need for accurate Intake and Output D) Antibiotic Usage:Yes; Infection present or suspected: Lung; Pneumonia E) VTE:Pharmacological prophylaxis; SQ Heparinand Mechanical prophylaxis; Sequential compression device F) Isolation:na G)Seizures:na I) Restraints: Patient assessed for need for restraints. Disposition/Family:Require ICU monitoring Primary service:NEICU Consults: None SUBJECTIVE Etelvina Alonso is a 58 y.o. female. Overnight Events: No new events noted.OBJECTIVE Vital Signs: Last Filed Vital Signs: 24 Hour Range BP: 90/59 (10/30 617) Temp: 37.2 C (98.9 F) (10/31 399) Pulse: 61 (10/30 617) Respirations: 23 PER MINUTE (10/30 617) SpO2: 100 % (10/30 617) O2 Delivery: Tracheal Tube (10/30 599) Weight: 51.5 kg (113 lb 8.6 oz) (10/31 399) BP: (89-121)/(47-89) Temp: [36.8 C (98.2 F)-37.2 C (99 F)] Pulse: [55-115] Respirations: [13 PER MINUTE-30 PER MINUTE] SpO2: [97 %-100 %] O2 Delivery: Tracheal Tube Intensity Pain Scale (Self Report): (not recorded) Vitals: 10/28/18 0500 10/29/18 0500 10/30/18 0400 Weight: 52.6 kg (115 lb 15.4 oz) 51.7 kg (113 lb 15.7 oz) 51.5 kg (113 lb 8.6 oz ) Artificial airway: Endotracheal Tube Ventilator/ Respiratory Therapy: Yes: Weaning readiness screen (RT Only):: Implement protocol Weaning readiness screen Met (RT Only):: Yes NIF: [-43 cm H2O] Weaning Minute Volume (L/min): [9.9 L/min] Weaning Tidal Vol (mL) (Calc.): [412 mL] $$ Vital Capacity (mL): [504 ml] Weaning Respiratory Rate: [24 breaths/min] RSBI (Calculated): [58] Mode: PS/CPAP Set Vt (ml): [390 milliliters] Tidal Volume Spont (mL): [309 milliliters-368 milliliters] Set RR: [16 breaths/minutes] Total Respiratory Rate (Breaths/Min): [19 breaths/minutes-24 breaths/minutes] Minute Volume (L/min): [7.06 liters/minutes-8.63 liters/minutes] O2%: [40 %] PIP Actual: [11 cm H20-15 cm H20] PEEP/CPAP: [5 cm H2O] PSupport: [5 cm H20-10 cm H20] Vent weaning trial: Per protocol Lines: Central Line Drains: Salomon Catheter: 3374 mL Intake/Output Summary: (Last 24 hours) Intake/Output Summary (Last 24 hours) at 10/30/2018 0628 Last data filed at 10/30/2018 0600 Gross per 24 hour Intake 2379.66 ml Output 1605 ml Net 774.66 ml Stool Occurrence: 1 Physical Exam: Blood pressure 90/59, pulse 61, temperature 37.2 C (98.9 F), height 162.6 cm (64"), weight 51.5 kg (113 lb 8.6 oz), SpO2 100 %. Daily coma score: E: 4 - Opens eyes on own M: 5 - Localizes to pain V: 1 - Makes no noise Neuro: Mental Status: Alert&Oriented x 3, remains intubated Cranial Nerves: - Pupil exam: Size: R - 3mm, L - 4mm Reactivity: brisk - Corneal reflex: R - present L - present - Grimace/facial movement: present - Cough: present Motor: Moves all extremities spontaneously and to command RUE: Strength: 4/5 RLE: Strength: 4/5 LUE: Strength: 4/5 LLE: Strength: 4/5 Lungs: clear to auscultation bilaterally Pulmonary: Respiratory status: Stable on mechanical ventilation Heart: S1, S2 normal Abdomen: soft, non-tender. Bowel sounds normal. No masses, no organomegaly Extremities: extremities normal, atraumatic, no cyanosis or edema Skin: Skin color, texture, turgor normal. No rashes or lesions Point of Care Testing: (Last 24 hours) Glucose: (!) 146 (10/30/18 0405) Lab Review: Pertinent labs reviewed Radiology and Other Diagnostic Procedures Review: Pertinent radiologic and diagnostic procedures reviewed. Pankaj Bunn MD Date: 10/30/[phone] Associated attestation - Judy Santoro MD - 10/31/2018 11:53 AM CDT ATTESTATION Date of Service: 10/30/2018 I have seen, personally fully evaluated, and discussed patient with Dr. Bunn and the Neuro-ENT ICU team. I agree with the objective findings and agree with the plan of care as documented by the resident with the exceptions noted. The patient is critically ill after transfer from OSH 10/19 with R temporal lobe intraparenchymal air and surrounding edema concerning for developing abscess. 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 and B/L LE saphenous graft site infections HTN HLD COPD Tobaccoism Acute on chronic anemia I spent 45 minutes (excluding time spent performing or supervising any procedures) providing and personally directing critical care services including -review of serial neurologic, hemodynamic, respiratory, telemetry, laboratory and imaging data -management of fluids/electrolytes, antibiotics, vasoactive medications, gas exchange/mechanical ventilation, sepsis protocol, ICU prophylaxis and ICU core measures -pain/sedation/delirium mgt -medication review and management -organization and coordination of care with patient (or surrogate), ICU team and consulting services. -directing the formulation of the overall plan of care outlined below. Dispo: This patient is critically ill with dysfunction of multiple organ systems and is at risk for life threatening deterioration necessitating complex medical decision making and ongoing provision of ICU care. Staff name: Julia Santoro MD Date: 10/30/2018 * Pat David MD - 10/30/2018 6:14 AM CDT CLEMENTINE/HNS PROGRESS NOTE Today's Date: 10/30/2018 Admission Date: 10/19/2018 LOS: 11 days Subjective No acute events overnight. Remains on ventilator, but awake this AM. States she is feeling well. Objective Vital Signs: Last Filed Vital Signs: 24 Hour Range BP: 92/57 (10/30 0500) Temp: 37.2 C (98.9 F) (10/30 0400) Pulse: 56 (10/30 0506) Respirations: 21 PER MINUTE (10/30 0506) SpO2: 100 % (10/30 0506) O2 Delivery: Tracheal Tube (10/30 0600) SpO2 Pulse: 56 (10/30 0300) BP: (89-121)/(47-89) Temp: [36.8 C (98.2 F)-37.2 C (99 F)] Pulse: [55-115] Respirations: [13 PER MINUTE-30 PER MINUTE] SpO2: [97 %-100 %] O2 Delivery: Tracheal Tube Intensity Pain Scale (Self Report): 4 (10/30/18 0000) Vitals: 10/28/18 0500 10/29/18 0500 10/30/18 0400 Weight: 52.6 kg (115 lb 15.4 oz) 51.7 kg (113 lb 15.7 oz) 51.5 kg (113 lb 8.6 oz ) Intake/Output Summary: (Last 24 hours) Intake/Output Summary (Last 24 hours) at 10/30/2018 0615 Last data filed at 10/30/2018 0600 Gross per 24 hour Intake 2379.66 ml Output 1605 ml Net 774.66 ml Stool Occurrence: 1 Physical Exam Trach tube in place, connected to ventilator NC/AT Face symmetric Right Isabelle and Telfa removed at bedside this AM, postauricular incision c/d /i with sutures 6-0 cuffed [address] secured in place with sutures, some bloody crusting around trach site but no active bleeding Respirations regular and unlabored on ventilator Laboratory: Pertinent labs reviewed Radiology/Imaging: Pertinent radiology reviewed. MRI CT head and IAC reviewed with neuroradiology Repeat MRI 10/26 demonstrates previous right temporal lobe abscess. Patient Active Problem List Diagnosis Date Noted Pneumocephalus 10/26/2018 Cerebritis 10/26/2018 Influenza A 10/26/2018 Abscess of brain 10/26/2018 Paroxysmal atrial fibrillation (HCC) 10/25/2018 Altered mental status, unspecified 10/20/2018 Pneumonia due to infectious organism 10/19/2018 Acute respiratory failure with hypoxia and hypercapnia (HCC) 10/19/2018 Assessment/Plan: Etelvina Alonso is a 58 y.o. female with complex medical history including CABG and nonhealing wounds on legs and recent pneumonia. She is admitted for altered mental status and was found to have pneumocephalus and cerebritis on imaging work up with concerns for right temporal lobe overlying the tegmen suggestive of focal cerebritis and developing abscess. She is now s/p R mastoidectomy, bilateral myringotomy with tube placement, and tracheostomy on 10/[address] Burch -- Agree with IV abx per primary and ID -- CSF cultures with no growth -- Continue routine trach care, will take cuff down once patient no longer on ventilator -- Planning for trach change on 11/02. Do NOT remove or replace trach ties until first trach change by ENT -- Continue otic drops in bilateral ears TID, local wound care to postauricular incision -- Diet and anticoagulation (okay for DVT ppx from ENT standpoint) per primary -- Agree with aggressive medical management Please page for any questions or concerns. Pat David MD Otolaryngology Resident, PGY-2 * Olimpia Broderick, PT - 10/29/2018 2:24 PM CDT PHYSICAL THERAPY NOTE Patient was unavailable for physical therapy; pt in OR. Physical therapy will continue to follow and provide intervention as indicated. Therapist: Olimpia Broderick, PT Date: 10/29/2018 * Magali Patel RN - 10/29/2018 2:05 PM CDT Pt transported to OR with RT. Handoff given to APPLIQUER ZIGZAG. VSS. * Benny Sepulveda MD - 10/29/2018 8:25 AM CDT Infectious Disease Progress Note Name: Etelvina Alonso Today's Date: 10/29/2018 Admission Date: 10/19/2018 Consulted for Cerebritis suspected Type of consult: Co-management w/signed orders Assessment: Strep pneumo bacteremia Bilateral LE wounds due to CABG vein harvest, both tracking deep, L with purulent drainage Pneumocephalus with surrounding edema on CTA head 10/19/18 at OSH, cerebritis, possible developing abscess in basal right temporal lobe on MRI head 10/20/18 Influenza A with possible HCAP Acute hypoxic/hypercarbic respiratory failure -Past concern for biliateral LE wound infection as below -10/16 presented to [facility] with a few days of fever, cough -10/16/18: BC x 2 Strep Pneumo R- Clindamycin and erythromcyin S: ceftriaxone ( MARCY 0.094), PCN (MARCY 0.064), levo, TMP/S, vanc. Rapid Flu Ag negative. MRSA nasal screen negative. 10/17/18: Sputum culture: Yeast and normal chelsey -Rapid mental status deterioration, intubated -CTA head 10/19/18 at OSH, small area of intraparenchymal air above the mastoid air cells and some edema around that area, with concern for possible infection. Pt was transferred to for further management -10/19: CXR patchy mixed alveolar and interstitial opacities -10/20: Tracheal aspirate: < 10 PMN, < 10 squam, no orgs. Moderate growth no significant chelsey -10/20: LLE swab: Pseudomonas aeruginosa (R - meropenem, ceftazidime, pip/tazo; S - cefepime, tobramycin, gentamicin, ceftolozane/tazobactam and ceftazidime/ avibactam) -10/20: MRI head w/wo: Ovoid focus of diffusion restriction and partial rim enhancement in the basal right temporal lobe overlying the tegmen suggestive of focal cerebritis and developing abscess. Dependent diffusion restricting material within the lateral ventricles suspicious for ventriculitis. Thin complex left posterolateral convexity subdural fluid collection with diffusion restriction suggestive of thin subdural empyema. -10/23: JYOTSNA: There is a small echogenic mass on the coaptation line of the aortic valve. Appears to likely be associated with the left coronary cusp. A vegetation cannot be ruled out. 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 No stenosis. No regurgitation. -10/23: CSF - WBCs 23 (86% lymphocytes, 9% mono/histocytes, 3% neutrophils), RBCs 1, glucose 70, protein 70. Cx NGTD Echogenic mass seen on AV - 10/23/18 JYOTSNA: There is a small echogenic mass on the coaptation line of the aortic valve. Appears to likely be associated with the left coronary cusp. A vegetation cannot be ruled out. 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 No stenosis. No regurgitation. Concern for bilateral LE wound infection, [facility] Bilateral vein harvest sites on lower extremities from CABG in [facility], 07/2018 Multiple cultures in [facility]. 09/07/18- Culture from R leg incision - Staph aureus MSSA, enterobacter cloace. 09/19/18 L leg pseudomonas R-Aztreonam Throat August and early September 2018 patient received courses of cefdinir, clindamycin, doxycycline, and trimethoprim/sulfa of unclear duration. 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 DEPUTY COURT infection likely S pneumo, which is well covered by the cefepime and also has good DEPUTY COURT penetration. Will tentatively plan for 2 weeks (from 10/23) of cefepime to treat both the LE wound infections and Strep pneumo bacteremia and suspected DEPUTY [address] abscess. Tentative last day of cefepime would be 11/05. -After cefepime she could be transitioned to ceftriaxone 2 g IV BID for meningitis. This would continue until at least 11/12 (4 weeks from 10/16). -Monitor for abx side effects -Continue oseltamivir for influenza x 10 days total, through 10/30 - Note ENT plan for OR today (10/29/18) for possible bilateral myringotomy with tube placement, right tympanoplasty and mastoidectomy, tracheostomy Shan Walker, Infectious Diseases Fellow Pager # [phone] Discussed with attending on service, Dr. Sepulveda I have seen, personally evaluated, and discussed the patient's care with Dr. Walker, Infectious Diseases Fellow. I agree with the subjective notations, objective findings and agree with the plan of care as documented in this note with edits made by me as necessary. Benny Sepulveda MD Automation Engineering Technician Division of Infectious Diseases Interval History Etelvina Alonso is a 58 y.o. female with a PMH significant for CABG (07/2018) who presented to [facility] in [facility] on 10/16/18 after noting worsening cough and sternal pain from recent sternotomy and non-healing LE graft sites. Transferred to [facility] on 10/19/18 for right temporal lobe intraparenchymal air and edema seen on CTA. Seen this AM on vent. She was awake and nodding appropriately to questions. Afebrile over the weekend, intubated V/AC, 22, 40%, 5 Dexmedetomidine WBC 11.7 Cr 0.40 I/O: 6/2260 [500 stool] (-203) Unable to complete ROS due to pt being intubated Antimicrobial Start date End date Cefepime 10/16/18-10/18/18, 10/23 active Ceftriaxone 10/18/18 10/20/18 Cefedinir 09/23/18 PRODUCTION CONTROL TECHNOLOGIST, uncertain timeframe Doxycycline 100 mg PO BID 09/06/18 PRODUCTION CONTROL TECHNOLOGIST, uncertain timeframe [id number] mg PO BID 08/23/18 PRODUCTION CONTROL TECHNOLOGIST, uncertain timeframe Fluconazole 150 mg PO QD 08/17/18 PRODUCTION CONTROL TECHNOLOGIST, uncertain timeframe Vancomycin 10/20/1810/24 Ampicillin 10/20/18 10/20/18 Fluconazole 10/20/18 10/26/18 Oseltamivir 10/21/18 active Meropenem 10/20/1810/23 Bactrim 08/17/18 PRODUCTION CONTROL TECHNOLOGIST, uncertain timeframe Estimated Creatinine Clearance: 72.4 mL/min (based on SCr of 0.4 mg/dL). Cardenas Results 10/24 C diff: negative 10/23 CSF GS/cx: rare neutrophils, no organisms seen, NGTD; WBCs 23 (86% lymphocytes, 9% mono/histocytes, 3% neutrophils), RBCs 1, glucose 70, protein 70 10/22 Blood cx: NG 10/20 LLE wound swab: Pseudomonas aeruginosa (R - meropenem, ceftazidime, pip/tazo ; S - cefepime, tobramycin, gentamicin, ceftaz/racehle, ceftolozane/tazo) 10/20 Tracheal aspirate: moderate growth no significant chelsey 10/20 Respiratory PCR panel: (+) influenza A 10/20 Blood cx: NGTD Prior cultures 10/16/18 Blood cx (from [facility] [place]): Strep Pneumo R- Clindamycin and erythromcyin Susceptible: ceftriaxone-dilut method 0.094, levofloxacin, penicillin e-dilut method 0.064, trimethoprim, and vancomycin 09/19/18 L leg: pseudomonas R-Aztreonam 09/07/18 Culture from R leg incision: Staph aureus MSSA, Enterobacter cloace 08/13/18 Sputum cx: Loretta glabrata and dublinesis Medications Scheduled Meds: ascorbic acid (VITAMIN C) tablet 500 mg 500 mg Per NG tube QDAY aspirin chewable tablet 81 mg 81 mg Per OG Tube QDAY atorvastatin (LIPITOR) tablet 20 mg 20 mg Per OG Tube QHS budesonide respule (PULMICORT) nebulizer solution 0.5 mg 0.5 mg Inhalation BID cefepime (MAXIPIME) 2 g in sodium chloride 0.9% (NS) 100 mL IVPB (MB+) 2 g Intravenous Q8H* [START ON 11/06/2018] cefTRIAXone (ROCEPHIN) IVP 2 g 2 g Intravenous Q12H* chlorhexidine gluconate (PERIDEX) 0.12 % solution 15 mL 15 mL Swish & Spit BID collagenase (SANTYL) topical ointment Topical BID docusate (COLACE) oral solution 100 mg 100 mg Per OG Tube BID famotidine (PEPCID) oral suspension 20 mg 20 mg Per NG tube BID levETIRAcetam (KEPPRA) oral solution 500 mg 500 mg Feeding Tube BID milk of magnesia (CONC) oral suspension 10 mL 10 mL Per OG Tube QDAY nicotine (NICODERM CQ STEP 1) 21 mg/day patch 1 patch 1 patch Transdermal QDAY( 21) oseltamivir (TAMIFLU) oral suspension 75 mg 75 mg Per NG tube BID potassium chloride oral solution 20 mEq 20 mEq Per OG Tube QDAY senna/docusate (SENOKOT-S) solution 10 mL 10 mL Per OG Tube BID sertraline (ZOLOFT) tablet 50 mg 50 mg SEE ADMIN INSTRUCTIONS QHS SODIUM CHLORIDE 0.9 % IV SOLP (Cabinet Override) NOW zinc sulfate capsule 220 mg 220 mg Per NG tube QDAY Continuous Infusions: dexmedetomidine (PRECEDEX) 400 mcg/NS 100 ml IV drip 0.6 mcg/kg/hr (724) PRN and Respiratory Meds:acetaminophen Q4H PRN, calcium gluconate IV PRN (Heating Operators Engineer from Rx) AND Ionized Calcium PRN AND Notify Physician Ongoing, fentaNYL citrate PF Q2H PRN, ipratropium/albuterol Q4H PRN, magnesium sulfate PRN AND [CANCELED] Magnesium PRN AND Notify Physician Ongoing, oxyCODONE Q4H PRN, pancrelipase 20,000 Units/ sodium bicarbonate 650 mg(#) PRN ( Heating Operators Engineer from Rx), potassium chloride SR PRN OR potassium chloride PRN Physical Examination Vital Signs: Last Vital Signs: 24 Hour Range BP: 108/51 (10/30 799) Temp: 37.1 C (98.7 F) (10/30 799) Pulse: 69 (10/30 799) Respirations: 23 PER MINUTE (10/30 799) SpO2: 100 % (10/30 799) O2 Delivery: Endotracheal Tube (Oral) (10/29 699) SpO2 Pulse: 69 (10/30 799) BP: (85-136)/(38-106) Temp: [36.8 C (98.2 F)-37.2 C (99 F)] Pulse: [55-118] Respirations: [21 PER MINUTE-33 PER MINUTE] SpO2: [97 %-100 %] O2 Delivery: Endotracheal Tube (Oral) General appearance: Intubated, alert and nodding appropriately to questions H&N: mucus membranes moist; ET tube in place Lungs: clear breath sounds on anterior auscultation Heart: normal rate; no murmurs appreciated Abdomen: soft, non-tender, non-distended, normoactive bowel sounds, Ext: healing ulcerations on medial aspect of R and L extremities from prior vein grafting Skin: no rash Msk: no joint swelling or redness Psych: unable to assess Lines/drains/tubes: CVC in R IJ; ET tube; Salomon; NDT Laboratory Hematology Recent Labs 10/27/1841710/28/1834210/29/18417 WBC 13.9* 11.9* 11.7* HGB 7.7* 7.5* 7.5* HCT 23.6* 23.0* 23.0* PLTCT 435* 454* 480* Chemistry Recent Labs 10/27/1841710/28/1834210/28/18 1414 10/29/18417 NA 138 138 -- 138 K 3.9 3.9 5.1 4.4 CL 109 107 -- 107 CO2 24 26 -- 25 BUN 13 14 -- 14 CR 0.40 0.42 -- 0.40 GFR >60 >60 -- >60 GLU 176* 172* -- 131* CA 9.0 8.9 -- 9.8 PO4 4.0 4.4 -- 4.8* ALBUMIN 2.8* -- -- -- ALKPHOS 23* -- -- -- AST 15 -- -- -- ALT 12 -- -- -- TOTBILI 0.2* -- -- -- Microbiology, Radiology and other Diagnostics Review Microbiology reviewed. Pertinent radiology reviewed. The patient is critically ill with concern for Brain abscess, meningitis. I spent 31 minutes personally reviewing the patient's vital signs, critical care flowsheets, labs, imaging studies, and clinical status, as well as examining the patient and providing recommendations regarding management including further diagnostic testing and antimicrobial therapy. * Pankaj Bunn MD - 10/29/2018 6:59 AM CDT Neuro Critical Care Progress Note Etelvina Alonso Admission Date: 10/19/2018 LOS: 10 days Full Code ASSESSMENT/PLAN Patient Active Problem List Diagnosis Date Noted Pneumocephalus 10/26/2018 Cerebritis 10/26/2018 Influenza A 10/26/2018 Abscess of brain 10/26/2018 Paroxysmal atrial fibrillation (HCC) 10/25/2018 Altered mental status, unspecified 10/20/2018 Pneumonia due to infectious organism 10/19/2018 Acute respiratory failure with hypoxia and hypercapnia (HCC) 10/19/2018 Etelvina Alonso is a 58 y.o. female with history of HTN, HLD, non-healing leg wounds, CAD s/p CABG in 07/2018 who presented to an OSH on 10/16 with shortness of breath and chest pains and found to have a RUL pneumonia. She was intubated on 10/17 2/2 worsening respiratory status and AMS. On 10/19, CTA with R temporal lobe intraparenchymal air and surrounding edema. Transferred to [facility] for escalation of care. Hospital and ICU course: 10/19: [facility]: DC amiodarone. Start spironolactone 12.5mg daily and lasix 20mg daily. Placed flexiseal.. Plan for OR Monday Neuro/ENT: Altered mental status; Meningitis; right temporal lobe abscess Q2 neurochecks D/c Keppra 500 mg BID Lumbar puncture10/24- WBC 23 RBC 1; HSV neg, culture NGTD PT/OT Sertraline HS NSG - No intervention planned ENT - Plan for OR on today for tympanomastoidectomy and trach placement Sedation/Pain Management: Precedex PRN fentanyl, oxycodone and tylenol available - Assess for delirium daily Cardiac: HTN; HLD; CAD s/p CABG in 07/2018; Paroxysmal AF SBP goal: < 160 MAP goal > 65 Continue spironolactone - PRODUCTION CONTROL TECHNOLOGIST lisinopril on hold will discuss starting tomorrow PRODUCTION CONTROL TECHNOLOGIST atrovastatin and ASA Echo today: 35-40%, mitral valve borderline prolapse and regurg no vegetations JYOTSNA:There is a small echogenic mass on the coaptation line of the aortic valve. Appears to likely be associated with the left coronary cusp. A vegetation Continue to hold Metoprolol & Lasix Respiratory: RUL Pneumonia Date of Intubation: 10/17 Reason: Airway protection - continue to attempt daily weaning trials, has been failing due to tachypnea when placed on pressure support - will get trach with ENT today PRODUCTION CONTROL TECHNOLOGIST budesonide Influenza virus positive GI: Feeding: NPO, Isosource 1.5 @ 50 ml/hr with 250 ml water every 6 hours - decrease free water to 150 ml every 6 hours today (Hold tube feeds at midnight for OR tomorrow) ABD US Bowel regimen, ensure daily BM (last BM 10/25) Fecal containment device Famotidine BID Heme: Trend daily CBC Hgb 7.5 (7.5), Plt 480 (453) SQ Heparin (Hold tonight for OR tomorrow) ASA Give one unit of Blood ID: Leukocytosis (improving); PNA; + Step pneumo bacteremia; Non-healing wounds on frequent Abx; thrush TMax 37.2 WBC 11.7 (11.9) ID consult appreciate recs Trend daily CBC Continue cefepime till 11/05 can switch to Rocephin 2 g IV BID after until 11/12 Tamiflu DC on 10/31 D/C Fluconazole Aim for normothermia Renal: Trend daily BMP Resolved MARGO from admit at OSH with Cr 1.10 10/16 Cr now 0.40 (.42) Aim for normovolemia Shot for 500ml to 1L negative Intake/Output Summary (Last 24 hours) at 10/29/2018 0659 Last data filed at 10/29/2018 0600 Gross per 24 hour Intake 2061.67 ml Output 2275 ml Net -213.33 ml Endocrine: Serum glucose 131 - Trend on daily BMP - Blood glucose goal 100-180mg/dl FEN: IVF: None Daily K+ Electrolyte protocol in place Magnesium goal >2.0, i-Earl goal > 1.0, Potassium goal >4.0 mEq/L Prophylaxis Review: A)GI: [id number] B) Lines:Yes; Central Line; Indication: Frequent blood draws; Type: Internal jugular C) Urinary Catheter:Yes; Retain salomon due to: Need for accurate Intake and Output D) Antibiotic Usage:Yes; Infection present or suspected: Lung; Pneumonia E) VTE:Pharmacological prophylaxis; SQ Heparinand Mechanical prophylaxis; Sequential compression device F) Isolation:na G)Seizures:na I) Restraints: Patient assessed for need for restraints. Disposition/Family:Require ICU monitoring Primary service:NEICU Consults: None SUBJECTIVE Etelvina Alonso is a 58 y.o. female. Overnight Events: No new events noted. Patient going to OR with ENT today. OBJECTIVE Vital Signs: Last Filed Vital Signs: 24 Hour Range BP: 90/48 (10/29 612) Temp: 37 C (98.6 F) (10/30 399) Pulse: 58 (10/29 612) Respirations: 27 PER MINUTE (10/29 612) SpO2: 99 % (10/29 612) O2 Delivery: Endotracheal Tube (Oral) (10/29 599) Weight: 51.7 kg (113 lb 15.7 oz) (10/29 499) BP: (85-136)/(38-106) Temp: [36.8 C (98.2 F)-37.2 C (99 F)] Pulse: [55-118] Respirations: [21 PER MINUTE-33 PER MINUTE] SpO2: [97 %-100 %] O2 Delivery: Endotracheal Tube (Oral) Intensity Pain Scale (Self Report): (not recorded) Vitals: 10/27/18 0400 10/28/18 0500 10/29/18 0500 Weight: 53.3 kg (117 lb 8.1 oz) 52.6 kg (115 lb 15.4 oz) 51.7 kg (113 lb 15.7 oz ) Artificial airway: Endotracheal Tube Ventilator/ Respiratory Therapy: Yes: Weaning readiness screen (RT Only):: Implement protocol Weaning readiness screen Met (RT Only):: Yes Mode: PS/CPAP Set Vt (ml): [370 milliliters] Tidal Volume Spont (mL): [272 milliliters-336 milliliters] Set RR: [22 breaths/minutes] Total Respiratory Rate (Breaths/Min): [25 breaths/minutes-28 breaths/minutes] Minute Volume (L/min): [8.79 liters/minutes-9.29 liters/minutes] O2%: [40 %] PIP Actual: [20 cm H20-21 cm H20] PEEP/CPAP: [5 cm H2O] PSupport: [15 cm H20] Vent weaning trial: Per protocol Lines: Central Line Drains: Salomon Catheter: 3374 mL Intake/Output Summary: (Last 24 hours) Intake/Output Summary (Last 24 hours) at 10/29/2018 0659 Last data filed at 10/29/2018 0600 Gross per 24 hour Intake 2061.67 ml Output 2275 ml Net -213.33 ml Stool Occurrence: 1 Physical Exam: Blood pressure 90/48, pulse 58, temperature 37 C (98.6 F), height 162.6 cm ( 64"), weight 51.7 kg (113 lb 15.7 oz), SpO2 99 %. [place] coma score: E: 4 - Opens eyes on own M: 5 - Localizes to pain V: 1 - Makes no noise Neuro: Mental Status: Alert&Oriented x 3, remains intubated Cranial Nerves: - Pupil exam: Size: R - 3mm, L - 4mm Reactivity: brisk - Corneal reflex: R - present L - present - Grimace/facial movement: present - Cough: present Motor: Moves all extremities spontaneously and to command RUE: Strength: 4/5 RLE: Strength: 4/5 LUE: Strength: 4/5 LLE: Strength: 4/5 Lungs: clear to auscultation bilaterally Pulmonary: Respiratory status: Stable on mechanical ventilation Heart: S1, S2 normal Abdomen: soft, non-tender. Bowel sounds normal. No masses, no organomegaly Extremities: extremities normal, atraumatic, no cyanosis or edema Skin: Skin color, texture, turgor normal. No rashes or lesions Point of Care Testing: (Last 24 hours) Glucose: (!) 131 (10/29/18 0418) Lab Review: Pertinent labs reviewed Radiology and Other Diagnostic Procedures Review: Pertinent radiologic and diagnostic procedures reviewed. Pankaj Bunn MD Date: 10/29/[phone] Associated attestation - Judy Santoro MD - 10/29/2018 3:43 PM CDT ATTESTATION Date of Service: 10/29/2018 I have seen, personally fully evaluated, and discussed patient with Dr. Bunn and the Neuro-ENT ICU team. I agree with the objective findings and agree with the plan of care as documented by the resident with the exceptions noted. The patient is critically ill with R temporal lobe intraparenchymal air and surrounding edema concerning for developing abscess . 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 site infections HTN HLD COPD Tobaccoism Acute on chronic anemia I spent 45 minutes (excluding time spent performing or supervising any procedures) providing and personally directing critical care services including -review of serial neurologic, hemodynamic, respiratory, telemetry, laboratory and imaging data -management of fluids/electrolytes, antibiotics, vasoactive medications, gas exchange/mechanical ventilation, sepsis protocol, ICU prophylaxis and ICU core measures -pain/sedation/delirium mgt -medication review and management -organization and coordination of care with patient (or surrogate), ICU team and consulting services. -directing the formulation of the overall plan of care outlined below. Dispo: This patient is critically ill with dysfunction of multiple organ systems and is at risk for life threatening deterioration necessitating complex medical decision making and ongoing provision of ICU care. Staff name: uJlia Santoro MD Date: 10/29/2018 * Jvuenal Gottlieb MD - 10/29/2018 6:29 AM CDT [facility] PROGRESS NOTE Today's Date: 10/29/2018 Admission Date: 10/19/2018 LOS: 10 days Subjective No acute events overnight. Remains intubated and asleep this AM. at bedside. Objective Vital Signs: Last Filed Vital Signs: 24 Hour Range BP: 90/48 (10/29 612) Temp: 37 C (98.6 F) (10/29 0400) Pulse: 58 (10/29 612) Respirations: 27 PER MINUTE (10/29 612) SpO2: 99 % (03/18 0613) O2 Delivery: Endotracheal Tube (Oral) (10/29 06) SpO2 Pulse: 55 (10/29 599) BP: (85-136)/(38-106) Temp: [36.8 C (98.2 F)-37.2 C (99 F)] Pulse: [55-118] Respirations: [21 PER MINUTE-33 PER MINUTE] SpO2: [97 %-100 %] O2 Delivery: Endotracheal Tube (Oral) Intensity Pain Scale (Self Report): 7 (10/28/181999) Vitals: 10/27/18 0400 10/28/18 0500 10/29/18 0500 Weight: 53.3 kg (117 lb 8.1 oz) 52.6 kg (115 lb 15.4 oz) 51.7 kg (113 lb 15.7 oz ) Intake/Output Summary: (Last 24 hours) Intake/Output Summary (Last 24 hours) at 10/29/2018 0629 Last data filed at 10/29/2018 0600 Gross per 24 hour Intake 2061.67 ml Output 2275 ml Net -213.33 ml Stool Occurrence: 1 Physical Exam Intubated and sedated NC/AT PERRL Face symmetric Respirations regular and unlabored on ventilator Laboratory: Pertinent labs reviewed Radiology/Imaging: Pertinent radiology reviewed. MRI CT head and IAC reviewed with neuroradiology Repeat MRI 10/26 demonstrates previous right temporal lobe abscess. Final read pending Patient Active Problem List Diagnosis Date Noted Pneumocephalus 10/26/2018 Cerebritis 10/26/2018 Influenza A 10/26/2018 Abscess of brain 10/26/2018 Paroxysmal atrial fibrillation (HCC) 10/25/2018 Altered mental status, unspecified 10/20/2018 Pneumonia due to infectious organism 10/19/2018 Acute respiratory failure with hypoxia and hypercapnia (HCC) 10/19/2018 Assessment/Plan: Etelvina Alonso is a 58 y.o. female with complex medical history including CABG and nonhealing wounds on legs and recent pneumonia. She is admitted for altered mental status and was found to have pneumocephalus and cerebritis on imaging work up with concerns for right temporal lobe overlying the tegmen suggestive of focal cerebritis and developing abscess -- Agree with IV abx per primary and ID -- CSF cultures with no growth -- Repeat MRI with re-demonstrating of right temporal lobe abscess. -- To OR today for bilateral ear exam under anesthesia and possible bilateral myringotomy with tube placement, right tympanoplasty and mastoidectomy, tracheostomy - the r/b/a were discussed with the this morning and consent was obtained. -- Please continue NPO and hold anticoagulation. -- Agree with aggressive medical management Please page for any questions or concerns. Juvenal Gottlieb MD Otolaryngology Resident, [id number] * Juvenal Gottlieb MD - 10/28/2018 9:22 AM CDT [facility] PROGRESS NOTE Today's Date: 10/28/2018 Admission Date: 10/19/2018 LOS: 9 days Subjective No acute events overnight. Remains intubated but able to respond to questions. Denies ear pain or drainage. Objective Vital Signs: Last Filed Vital Signs: 24 Hour Range BP: 99/49 (10/28 0700) Temp: 37 C (98.6 F) (10/28 0000) Pulse: 69 (10/28 0700) Respirations: 28 PER MINUTE (10/28 0700) SpO2: 100 % (10/28 0600) O2 Delivery: Endotracheal Tube (Oral) (10/28 07) SpO2 Pulse: 73 (10/28 0339) BP: (63-125)/(33-96) Temp: [36.9 C (98.4 F)-37.4 C (99.3 F)] Pulse: [54-77] Respirations: [17 PER MINUTE-34 PER MINUTE] SpO2: [100 %] O2 Delivery: Endotracheal Tube (Oral) Vitals: 10/26/18 0500 10/27/18 0400 10/28/18 0500 Weight: 52.2 kg (115 lb 1.3 oz) 53.3 kg (117 lb 8.1 oz) 52.6 kg (115 lb 15.4 oz ) Intake/Output Summary: (Last 24 hours) Intake/Output Summary (Last 24 hours) at 10/28/2018 0922 Last data filed at 10/28/2018 0700 Gross per 24 hour Intake 2816.4 ml Output 2215 ml Net 601.4 ml Stool Occurrence: 1 Physical Exam Intubated and sedated NC/AT PERRL Face symmetric Respirations regular and unlabored on ventilator Laboratory: Pertinent labs reviewed Radiology/Imaging: Pertinent radiology reviewed. MRI CT head and IAC reviewed with neuroradiology Repeat MRI 10/26 demonstrates previous right temporal lobe abscess. Final read pending Patient Active Problem List Diagnosis Date Noted Pneumocephalus 10/26/2018 Cerebritis 10/26/2018 Influenza A 10/26/2018 Abscess of brain 10/26/2018 Paroxysmal atrial fibrillation (HCC) 10/25/2018 Altered mental status, unspecified 10/20/2018 Pneumonia due to infectious organism 10/19/2018 Acute respiratory failure with hypoxia and hypercapnia (HCC) 10/19/2018 Assessment/Plan: Etelvina Alonso is a 58 y.o. female with complex medical history including CABG and nonhealing wounds on legs and recent pneumonia. She is admitted for altered mental status and was found to have pneumocephalus and cerebritis on imaging work up with concerns for right temporal lobe overlying the tegmen suggestive of focal cerebritis and developing abscess -- Agree with IV abx per primary and ID -- CSF cultures with no growth -- Repeat MRI with re-demonstrating of right temporal lobe abscess. -- ENT to take to OR Monday for bilateral ear exam under anesthesia and possible bilateral myringotomy with tube placement, right tympanoplasty and mastoidectomy, tracheostomy - this was discussed with the patient this morning. Attempted to contract family to obtain consent, but not present at bedside nor answering phone. NEICU team to update ENT team when family is present. -- Please make NPO and hold anticoagulation at midnight tonight. -- Agree with aggressive medical management Please page for any questions or concerns. Juvenal Gottlieb MD Otolaryngology Resident, [id number] * Pankaj Bunn MD - 10/28/2018 6:12 AM CDT Neuro Critical Care Progress Note Etelvina Alonso Admission Date: 10/19/2018 LOS: 9 days Full Code ASSESSMENT/PLAN Patient Active Problem List Diagnosis Date Noted Pneumocephalus 10/26/2018 Cerebritis 10/26/2018 Influenza A 10/26/2018 Abscess of brain 10/26/2018 Paroxysmal atrial fibrillation (HCC) 10/25/2018 Altered mental status, unspecified 10/20/2018 Pneumonia due to infectious organism 10/19/2018 Acute respiratory failure with hypoxia and hypercapnia (HCC) 10/19/2018 Etelvina Alonso is a 58 y.o. female with history of HTN, HLD, non-healing leg wounds, CAD s/p CABG in 07/2018 who presented to an OSH on 10/16 with shortness of breath and chest pains and found to have a RUL pneumonia. She was intubated on 10/17 2/2 worsening respiratory status and AMS. On 10/19, CTA with R temporal lobe intraparenchymal air and surrounding edema. Transferred to [facility] for escalation of care. Hospital and ICU course: 10/19: [facility] 10[facility]: DC amiodarone. Start spironolactone 12.5mg daily and lasix 20mg daily. Placed flexiseal.. Plan for OR Monday Neuro/ENT: Altered mental status; Meningitis; right temporal lobe abscess Q2 neurochecks Keppra 500 mg BID Lumbar puncture10/24- WBC 23 RBC 1; HSV neg, culture NGTD PT/OT Sertraline HS NSG - No intervention planned ENT - Plan for OR on tomorrow for tympanomastoidectomy and possible trach Sedation/Pain Management: Precedex PRN fentanyl, oxycodone and tylenol available - Assess for delirium daily Cardiac: HTN; HLD; CAD s/p CABG in 07/2018; Paroxysmal AF SBP goal: < 160 MAP goal > 65 PRODUCTION CONTROL TECHNOLOGIST metoprolol Start spironolactone - DC amiodarone (started for AFib ppx) - PRODUCTION CONTROL TECHNOLOGIST lisinopril on hold will discuss starting tomorrow PRODUCTION CONTROL TECHNOLOGIST atrovastatin and ASA - PRODUCTION CONTROL TECHNOLOGIST plavix on hold Echo today: 35-40%, mitral valve borderline prolapse and regurg no vegetations JYOTSNA:There is a small echogenic mass on the coaptation line of the aortic valve. Appears to likely be associated with the left coronary cusp. A vegetation Restart Metoprolol & Lasix? Respiratory: RUL Pneumonia Date of Intubation: 10/17 Reason: Airway protection - continue to attempt daily weaning trials, has been failing due to tachypnea when placed on pressure support - will possibly need trach placement with ENT early next week PRODUCTION CONTROL TECHNOLOGIST budesonide resumed Influenza virus positive PS/CPAP 4 hours BID with MMV in between (PS 15/5 MMV 370 RR22 P5 PS15 FiO2 0.4) , fail criteria RR 35 - PaO2 goal >100, Spo2 goal >95%, PCO2 goal 35-40 10/25 chest xray: Mild cardiomegaly and pulmonary venous congestion with small left pleural effusion and bibasilar atelectasis. GI: Feeding: NPO, Isosource 1.5 @ 50 ml/hr with 250 ml water every 6 hours - decrease free water to 150 ml every 6 hours today (Hold tube feeds at midnight for OR tomorrow) Bowel regimen, ensure daily BM (last BM 10/25) Fecal containment device Famotidine BID Heme: Trend daily CBC Hgb 7.5 (7.7), Plt 454 (435) SQ Heparin (Hold tonight for OR tomorrow) ASA Iron studies Retic count Type and cross ID: Leukocytosis (improving); PNA; + Step pneumo bacteremia; Non-healing wounds on frequent Abx; thrush TMax 37.6 WBC 11.9 ID consult appreciate recs Trend daily CBC Continue cefepime till 11/05 can switch to Rocephin 2 g IV BID after until 11/12 Tamiflu DC on 10/31 D/C Fluconazole Aim for normothermia Renal: Trend daily BMP Resolved MARGO from admit at OSH with Cr 1.10 10/16 Cr now 0.42 Aim for normovolemia Shot for 500ml to 1L negative Intake/Output Summary (Last 24 hours) at 10/28/2018 0616 Last data filed at 10/28/2018 0600 Gross per 24 hour Intake 3035.79 ml Output 3005 ml Net 30.79 ml Endocrine: Serum glucose 172 - Trend on daily BMP - Blood glucose goal 100-180mg/dl FEN: IVF: None Daily K+ Electrolyte protocol in place Magnesium goal >2.0, i-Earl goal > 1.0, Potassium goal >4.0 mEq/L Prophylaxis Review: A)GI: [id number] B) Lines:Yes; Central Line; Indication: Frequent blood draws; Type: Internal jugular C) Urinary Catheter:Yes; Retain salomon due to: Need for accurate Intake and Output D) Antibiotic Usage:Yes; Infection present or suspected: Lung; Pneumonia E) VTE:Pharmacological prophylaxis; SQ Heparinand Mechanical prophylaxis; Sequential compression device F) Isolation:na G)Seizures:na I) Restraints: Patient assessed for need for restraints. Disposition/Family:Require ICU monitoring Primary service:NEICU Consults: None SUBJECTIVE Etelvina Alonso is a 58 y.o. female. Overnight Events: No new events noted. Patient given fluids for hypotension. OBJECTIVE Vital Signs: Last Filed Vital Signs: 24 Hour Range BP: 99/46 (10/28 0427) Temp: 37 C (98.6 F) (10/28 0000) Pulse: 56 (10/28 044) Respirations: 27 PER MINUTE (10/28 044) SpO2: 100 % (10/28 044) O2 Delivery: Endotracheal Tube (Oral) (10/28 0400) Weight: 52.6 kg (115 lb 15.4 oz) (10/28 0500) BP: (63-125)/(33-96) Temp: [36.9 C (98.4 F)-37.6 C (99.6 F)] Pulse: [54-77] Respirations: [17 PER MINUTE-34 PER MINUTE] SpO2: [100 %] O2 Delivery: Endotracheal Tube (Oral) Intensity Pain Scale (Self Report): (not recorded) Vitals: 10/26/18 0500 10/27/18 0400 10/28/18 0500 Weight: 52.2 kg (115 lb 1.3 oz) 53.3 kg (117 lb 8.1 oz) 52.6 kg (115 lb 15.4 oz ) Artificial airway: Endotracheal Tube Ventilator/ Respiratory Therapy: Yes: Mode: MMV Set Vt (ml): [370 milliliters] Tidal Volume Spont (mL): [336 milliliters-408 milliliters] Set RR: [22 breaths/minutes] Total Respiratory Rate (Breaths/Min): [24 breaths/minutes-28 breaths/minutes] Minute Volume (L/min): [8.75 liters/minutes-10.1 liters/minutes] O2%: [40 %] PIP Actual: [20 cm H20-21 cm H20] PEEP/CPAP: [5 cm H2O] PSupport: [15 cm H20] Vent weaning trial: Per protocol Lines: Central Line Drains: Salomon Catheter: 3374 mL Intake/Output Summary: (Last 24 hours) Intake/Output Summary (Last 24 hours) at 10/28/2018 0612 Last data filed at 10/28/2018 0600 Gross per 24 hour Intake 3035.79 ml Output 3005 ml Net 30.79 ml Stool Occurrence: 1 Physical Exam: Blood pressure 99/46, pulse 56, temperature 37 C (98.6 F), height 162.6 cm ( 64"), weight 52.6 kg (115 lb 15.4 oz), SpO2 100 %. Daily coma score: E: 4 - Opens eyes on own M: 5 - Localizes to pain V: 1 - Makes no noise Neuro: Mental Status: Alert&Oriented x 3, remains intubated Cranial Nerves: - Pupil exam: Size: R - 3mm, L - 4mm Reactivity: brisk - Corneal reflex: R - present L - present - Grimace/facial movement: present - Cough: present Motor: Moves all extremities spontaneously and to command RUE: Strength: 4/5 RLE: Strength: 4/5 LUE: Strength: 4/5 LLE: Strength: 4/5 Lungs: clear to auscultation bilaterally Pulmonary: Respiratory status: Stable on mechanical ventilation Heart: S1, S2 normal Abdomen: soft, non-tender. Bowel sounds normal. No masses, no organomegaly Extremities: extremities normal, atraumatic, no cyanosis or edema Skin: Skin color, texture, turgor normal. No rashes or lesions Point of Care Testing: (Last 24 hours) Glucose: (!) 172 (10/28/18 0343) Lab Review: Pertinent labs reviewed Radiology and Other Diagnostic Procedures Review: Pertinent radiologic and diagnostic procedures reviewed. Pankaj Bunn MD Date: 10/28/[phone] Associated attestation - Farhad Perez MD - 10/29/2018 12:20 AM CDT N: recovered meningitis She is alert and is very strong- she was able to sit in a chair today for 1hr before a painic attack occurred and she had SVT 150's, and frequent short runs of VT before being put in the bed. - she was off precedex at the time. Anxiety- she will need some anxiolytic if she gets up to the chair again. Hearing loss - she cannot understand speech unless I yell or I take my mask off Cerebritis - Intracranial abscess - small - responding to antibiotics - no plans for neurosurgery at this point. Lacunar stroke we have keppra seizure prophylaxis in place- this may be discontinued after the OR. OR tomorrow for myringotomy tubes, mastoidectomy, tracheostomy. CV: CM EF 40-45% MAP goal >65 Tried to diurese her over the past several days - but the fluid was given back due to hypotension. Will give albumin or blood if she needs volume in the future. She will probably require blood in the OR. T&C. HgB 7.5, iron deficiency CAD; recent CABGx4 in [place] in Jul 2018. Asa 81, atorvastatin 20, spironolactone 12.5 Today we held the metoprolol 12.5 BID due to low bp She has been loaded with several months of amiodarone through this week. ( prophylaxis after her cardiac surgery was left on). She was recently on 3mo plavix after heart surgery per her surgeon's protocol and this was stopped las week on admission here. More frequent PVC's, may need to resume betablocker. Resp: Flail sternum COPD Recently smoked until this admission Influenza pneumonia - stop oseltamivir after 10 d Fluid overload from CM Plan trach due to intolerance of weaning She sat in chair for 1 hr today comfortably before suddenly and unexpectedly developing coughing, agitation fit, blue appearance, frothy white secretions in ETT, tachycardia 150's with frequent short runs of VT. This was attributed to anxiety attack. She was back in bed with HR 120 when I saw her. Renal: volume status difficult to ascertain GI: npo after mn Complained of abd pain, had RUQ tenderness. Alkphos and bili not elevated. Ultrasound was ordered but not completed. Will perform at bedside and r/o subcapsular liver hematoma. ID: meibrandi resovled Cefepime + vanc treatment was used. Cefepime through 11/05, to cover for menigitis plus the pseudomonas in the leg wounds, then change to ceftriaxone for remainder of 4 weeks Fluconazole for thrush stopped. Oseltamivir 10 d course, influenza pneumonia Will get ear tubes tomorrow Heme: iron deficiency anemia. Hold heparin for the OR. NEICU Attending Loan Collector Attestation Etelvina Alonso is a 58 y.o. y.o. female admitted 10/19/2018 to the NEICU critically ill with respiratory failure and is receiving critical care services for the treatment of this primary diagnosis and the prevention and management of secondary injuries. I have reviewed the events, seen, personally examined, fully evaluated, and discussed this patient with NeuroICU team during the team rounds. I agree with the objective findings and agree with the plan of care as documented by the resident with the exceptions noted. This patient exhibits injury of at least one organ system and there is high probability of imminent or life-threatening deterioration in patient's condition. As such, there is a need for continued medical attention including frequent neurological examination, frequent vital signs, and the cares appropriate for an ICU. I spent 55 minutes providing and personally directing neurological care services. Family and patient were counseled about the diagnosis, treatment plan , and prognosis. Farhad Perez MD Date: 10/29/2018 * Judy Barrett RN - 10/27/2018 6:52 PM CDT I have reviewed the notes, assessments, and/or procedures performed by SN David and concur with her/his documentation unless otherwise noted. * Sheron Beebe MD - 10/27/2018 11:23 AM CDT Brief Neurosurgery Progress Note Reviewed imaging with Dr. Cristina. Continued medical management for infection. Defer to ID regarding timing of subsequent imaging. No surgical intervention planned at this time given the size of the abscess. When repeat imaging is obtained, please contact Neurosurgery with any changes or other concerns prior to that time. We will sign off. Sheron Beebe MD * Pankaj Bunn MD - 10/27/2018 6:17 AM CDT Neuro Critical Care Progress Note Etelvina Alonso Admission Date: 10/19/2018 LOS: 8 days Full Code ASSESSMENT/PLAN Patient Active Problem List Diagnosis Date Noted Pneumocephalus 10/26/2018 Cerebritis 10/26/2018 Influenza A 10/26/2018 Abscess of brain 10/26/2018 Paroxysmal atrial fibrillation (HCC) 10/25/2018 Altered mental status, unspecified 10/20/2018 Pneumonia due to infectious organism 10/19/2018 Acute respiratory failure with hypoxia and hypercapnia (HCC) 10/19/2018 Etelvina Alonso is a 58 y.o. female with history of HTN, HLD, non-healing leg wounds, CAD s/p CABG in 07/2018 who presented to an OSH on 10/16 with shortness of breath and chest pains and found to have a RUL pneumonia. She was intubated on 10/17 2/2 worsening respiratory status and AMS. On 10/19, CTA with R temporal lobe intraparenchymal air and surrounding edema. Transferred to [facility] for escalation of care. Hospital and ICU course: 10/19: [facility] O[facility] 10/26: DC amiodarone. Start spironolactone 12.5mg daily and lasix 20mg daily. Placed flexiseal.. Plan for OR Monday Neuro/ENT: Altered mental status; Meningitis; right temporal lobe abscess Q2 neurochecks Keppra 500 mg BID Lumbar puncture10/24- WBC 23 RBC 1; HSV neg, culture NGTD PT/OT Sertraline HS NSG - No intervention planned ENT - Plan for OR on Monday for tympanomastoidectomy and possible trach Sedation/Pain Management: Precedex PRN fentanyl, oxycodone and tylenol available - Assess for delirium daily Cardiac: HTN; HLD; CAD s/p CABG in 07/2018; Paroxysmal AF SBP goal: < 160 MAP goal > 65 PRODUCTION CONTROL TECHNOLOGIST metoprolol Start spironolactone - DC amiodarone (started for AFib ppx) - PRODUCTION CONTROL TECHNOLOGIST lisinopril on hold will discuss starting tomorrow PRODUCTION CONTROL TECHNOLOGIST atrovastatin and ASA - PRODUCTION CONTROL TECHNOLOGIST plavix on hold Echo today: 35-40%, mitral valve borderline prolapse and regurg no vegetations JYOTSNA:There is a small echogenic mass on the coaptation line of the aortic valve. Appears to likely be associated with the left coronary cusp. 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 GI: Feeding: NPO, Isosource 1.5 @ 50 ml/hr with 250 ml water every 6 hours - decrease free water to 150 ml every 6 hours today Bowel regimen, ensure daily BM (last BM 10/25) Famotidine BID Heme: Trend daily CBC Hgb 7.8, Plt 355 SQ Heparin ASA ID: Leukocytosis (improving); PNA; + Step pneumo bacteremia; Non-healing wounds on frequent Abx; thrush TMax 37.1 WBC 12.6 ID consult appreciate recs Trend daily CBC Continue cefepimecan switch to Rocephin 2 g IV BID after until 11/12 Tamiflu DC on 10/31 D/C Fluconazole Aim for normothermia Renal: Trend daily BMP Resolved MARGO from admit at OSH with Cr 1.10 10/16 Cr now 0.40 Aim for normovolemia Shot for 500ml to 1L negative I&O over 24 hours -914ml Endocrine: Serum glucose 161 - Trend on daily BMP - Blood glucose goal 100-180mg/dl FEN: IVF: None Daily K+ Electrolyte protocol in place Magnesium goal >2.0, i-Earl goal > 1.0, Potassium goal >4.0 mEq/L Prophylaxis Review: A)GI: [id number] B) Lines:Yes; Central Line; Indication: Frequent blood draws; Type: Internal jugular C) Urinary Catheter:Yes; Retain salomon due to: Need for accurate Intake and Output D) Antibiotic Usage:Yes; Infection present or suspected: Lung; Pneumonia E) VTE:Pharmacological prophylaxis; SQ Heparinand Mechanical prophylaxis; Sequential compression device F) Isolation:na G)Seizures:na I) Restraints: Patient assessed for need for restraints. Disposition/Family:Require ICU monitoring Primary service:NEICU Consults: None SUBJECTIVE Etelvina Alonso is a 58 y.o. female. Overnight Events: No new events noted. OBJECTIVE Vital Signs: Last Filed Vital Signs: 24 Hour Range BP: 97/50 (10/27 612) Temp: 37.1 C (98.8 F) (10/28 399) Pulse: 56 (10/27 612) Respirations: 33 PER MINUTE (10/27 612) SpO2: 100 % (10/27 612) O2 Delivery: Endotracheal Tube (Oral) (10/27 599) Weight: 53.3 kg (117 lb 8.1 oz) (10/28 399) BP: (86-169)/(44-102) Temp: [37 C (98.6 F)-37.2 C (98.9 F)] Pulse: [49-91] Respirations: [12 PER MINUTE-36 PER MINUTE] SpO2: [99 %-100 %] O2 Delivery: Endotracheal Tube (Oral) Intensity Pain Scale (Self Report): (not recorded) Vitals: 10/25/18 0400 10/26/18 0500 10/27/18 0400 Weight: 53.7 kg (118 lb 6.2 oz) 52.2 kg (115 lb 1.3 oz) 53.3 kg (117 lb 8.1 oz) Artificial airway: Endotracheal Tube Ventilator/ Respiratory Therapy: Yes: Weaning readiness screen (RT Only):: Implement protocol Weaning readiness screen Met (RT Only):: Other (see comments) PaO2 (Manual entry): [124 MMHG] FiO2 (Manual entry): [0.4] P/F Ratio (Calculated): [310] Mode: PS/CPAP Set Vt (ml): [370 milliliters] Tidal Volume Spont (mL): [318 milliliters-365 milliliters] Set RR: [18 breaths/minutes] Total Respiratory Rate (Breaths/Min): [27 breaths/minutes-33 breaths/minutes] Minute Volume (L/min): [10 liters/minutes-11.1 liters/minutes] O2%: [40 %] PIP Actual: [16 cm H20-22 cm H20] PEEP/CPAP: [5 cm H2O] PSupport: [10 cm H20] Vent weaning trial: Per protocol Lines: Central Line Drains: Salomon Catheter: 3374 mL Intake/Output Summary: (Last 24 hours) Intake/Output Summary (Last 24 hours) at 10/27/2018 0617 Last data filed at 10/27/2018 0600 Gross per 24 hour Intake 2060.67 ml Output 2175 ml Net -114.33 ml Stool Occurrence: 1 Physical Exam: Blood pressure 97/50, pulse 56, temperature 37.1 C (98.8 F), height 162.6 cm (64"), weight 53.3 kg (117 lb 8.1 oz), SpO2 100 %. [place] coma score: E: 4 - Opens eyes on own M: 5 - Localizes to pain V: 1 - Makes no noise Neuro: Mental Status: Alert&Oriented x 3, remains intubated Cranial Nerves: - Pupil exam: Size: R - 3mm, L - 4mm Reactivity: brisk - Corneal reflex: R - present L - present - Grimace/facial movement: present - Cough: present Motor: Moves all extremities spontaneously and to command RUE: Strength: 5/5 RLE: Strength: 5/5 LUE: Strength: 5/5 LLE: Strength: 5/5 Lungs: clear to auscultation bilaterally Pulmonary: Respiratory status: Stable on mechanical ventilation Heart: S1, S2 normal Abdomen: soft, non-tender. Bowel sounds normal. No masses, no organomegaly Extremities: extremities normal, atraumatic, no cyanosis or edema Skin: Skin color, texture, turgor normal. No rashes or lesions Point of Care Testing: (Last 24 hours) Glucose: (!) 176 (10/27/18 6848) Lab Review: Pertinent labs reviewed Radiology and Other Diagnostic Procedures Review: Pertinent radiologic and diagnostic procedures reviewed. 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 CV: fluid overload with CM Ventilator weaning better tolerated with diuresis, but she required 250 albumin being given after diuresis today due to hypotension. We will hold this evenings lasix and metoprolol doses. I do not expect tachycardia as she has substantial stores of amiodarone from several months administration. CAD- recent emergent CABG in [facility] [place]. She was recently on amiodarone for prophylaxis and failed to have this discontinued in clinic followup. She was given plavix by surgeon in [place] for 3mo duration after CABG per their protocol. Both of these medications have been discontinued. Cardiomyopathy- ischemic, nondilated. This has potentially improved over the course of her acute illness flail sternum - CTS consult appreciated Continue asa, atorvastatin. Diuresis goal 500 -1000mL each day (as tolerated) On home lasix 20 EF 40-45% Resp: -Failure to wean - PS 15/5 for four hours bid Will set failure threshold for pressure support trials at a generous RR 35 in order to allow her to participate. If she exceeds this then will place back on full support - this may later be amended. MMV 370 RR22 P5 PS15 FiO2 0.4 Plan for trach Monday. She may be difficult wean after her trach due to flail sternum, cardiogenic pulmonary edema, and influenza pneumonia. I hope to see her sitting at the edge of the bed, sitting in a chair, and ambulating on the ventilator as she has good level of alertness and she has good motor strength in spite of respiratory failure. -Influenza pneumonia -CHF fluid overload/pulmonary edema She has had multiple admissions for "pneumonia" since her heart surgery. There are multiple reasons for this: she has continued to smoke 1 ppd until this admission, she has COPD, she has probably had flail sternum for some time, she has cardiomyopathy and likely has had pulmonary edema - she has been sleeping in a chair due to shortness of breath, she has Inf A on viral panel this admission. -Heavy smoker - has been smoking 1ppd since surgery -COPD Renal:positive volume status in the setting of infection Metabolic alkalosis GI: continue tube feeds may have npo if she will go for possible surgery. ID: meningitis/cerebritis Previous s. 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 Central line in place. As she has been culture negative on her blood (10/20 and 10/22) will be able to place PICC for custodial abx. 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 y.o. female admitted 10/19/2018 to the NEICU critically ill with meningitis and is receiving critical care services for the treatment of this primary diagnosis and the prevention and management of secondary injuries. I have reviewed the events, seen, personally examined, fully evaluated, and discussed this patient with NeuroICU team during the team rounds. I agree with the objective findings and agree with the plan of care as documented by the resident with the exceptions noted. This patient exhibits injury of at least one organ system and there is high probability of imminent or life-threatening deterioration in patient's condition. As such, there is a need for continued medical attention including frequent neurological examination, frequent vital signs, and the cares appropriate for an ICU. I spent 65 minutes providing and personally directing neurological care services. Family and patient were counseled about the diagnosis, treatment plan , and prognosis. Farhad Perez MD Date: 10/27/2018 * Farhad Perez MD - 10/26/2018 9:25 PM CDT N:Meningitis encephalocoele- ENT may perform tympanomastoidectomy and trach on Monday ( and patient have agreed to this) Pneumocephalus resolved Left posterior convexity subdural infected collection improved on imaging today Right temporal cerebritis Right temporal intracranial abscess - developing circumferential contrast enhancement Right lacunar stroke in right centrum semiovale Wbc 23, lymphocytic, obtained after antibiotics had been used for an extended duration Previous leg wounds from vein harvest site and previous pneumonia and previous S. pneumoniae bacteremia Improving clinically. She has been able to communicate with me brightly and clearly answering questions although intubated and unable to wean from the ventilator. Continue seizure prophylaxis CV: CAD- recent emergent CABG in [place], [place]. She was recently on amiodarone for prophylaxis and failed to have this discontinued in clinic followup. She was given plavix by surgeon in [place] for 3mo duration after CABG per their protocol. Both of these medications have been discontinued. Cardiomyopathy- ischemic, nondilated. This has potentially improved over the course of her acute illness flail sternum - CTS consult appreciated Continue asa, atorvastatin. Lasix 20 IV qd for gradual diuresis 500-1000mL per day for On home lasix 20 EF 40-45% Resp: -Failure to wean - Plan for trach Monday. Although she will still be difficult wean after her trach due to flail sternum, cardiogenic pulmonary edema, and influenza pneumonia. During weaning trials she fails instantly with tachypnea 40-50 breaths per minute -Influenza pneumonia -CHF fluid overload/pulmonary edema She has had multiple admissions for "pneumonia" since her heart surgery. There are multiple reasons for this: she has continued to smoke 1 ppd until this admission, she has COPD, she has probably had flail sternum for some time, she has cardiomyopathy and likely has had pulmonary edema - she has been sleeping in a chair due to shortness of breath, she has Inf A on viral panel this admission. -Heavy smoker - has been smoking 1ppd since surgery -COPD Renal:positive volume status in the setting of infection Metabolic alkalosis GI: continue tube feeds may have npo if she will go for possible surgery. ID: meningitis/cerebritis Previous s. 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 Central line in place. As she has been culture negative on her blood (10/20 and 10/22) will be able to place PICC for custodial abx. 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 y.o. female admitted 10/19/2018 to the NEICU critically ill with respiratory failure and is receiving critical care services for the treatment of this primary diagnosis and the prevention and management of secondary injuries. I have reviewed the events, seen, personally examined, fully evaluated, and discussed this patient with NeuroICU team during the team rounds. I agree with the objective findings and agree with the plan of care as documented by the resident with the exceptions noted. This patient exhibits injury of at least one organ system and there is high probability of imminent or life-threatening deterioration in patient's condition. As such, there is a need for continued medical attention including frequent neurological examination, frequent vital signs, and the cares appropriate for an ICU. I spent 65 minutes providing and personally directing neurological care services. Family and patient were counseled about the diagnosis, treatment plan , and prognosis. Farhad Perez MD Date: 10/26/2018 * Elenita Butler, OT - 10/26/2018 2:32 PM CDT OCCUPATIONAL THERAPY NO TREATMENT NOTE The patient was not seen due to: pt not meeting BP goal in supine and RR 33 at rest on ventilator. RN states pt agitated earlier, currently resting. Will hold at this time, follow up next week. Note plans for OR Monday, will follow up after. Therapist: Elenita Butler OT Date: 10/26/2018 * Louise Hennessy, PT - 10/26/2018 2:30 PM CDT PHYSICAL THERAPY NOTE Patient was not seen for PT/OT due to not meeting BP goal in supine and RR 33 at rest on ventilator. RN states pt agitated earlier, currently resting. Will hold at this time, follow up next week. Note plans for OR Monday, will follow up after Therapist: Louise Hennessy, PT Date: 10/26/2018 * Pato Jacinto MD - 10/26/2018 11:32 AM CDT Brief Neurosurgery Progress Note Recent MRI reviewed. Evidence of a right inferior temporal cerebritis that has coalesced into an abscess. ENT is planning to perform a tympanomastoidectomy on Monday. Given the small size, we will likely recommend continued medical management. We will round over the weekend and further discuss with staff. No emergent neurosurgical interventions. Discussed with Dr. Cristina. Pato Jacinto MD * Yoon Valle MD - 10/26/2018 11:27 AM CDT CLEMENTINE/HNS PROGRESS NOTE Today's Date: 10/26/2018 Admission Date: 10/19/2018 LOS: 7 days Subjective No acute events overnight. Remains intubated but able to respond to questions. Denies ear pain or drainage. Objective Vital Signs: Last Filed Vital Signs: 24 Hour Range BP: 99/46 (10/26 0800) Temp: 37.1 C (98.8 F) (10/26 0400) Pulse: 71 (10/26 1036) Respirations: 32 PER MINUTE (10/26 1036) SpO2: 100 % (10/26 1036) O2 Delivery: Endotracheal Tube (Oral) (10/26 0800) SpO2 Pulse: 58 (10/26 0800) BP: (96-118)/(36-61) Temp: [36.8 C (98.2 F)-37.3 C (99.1 F)] Pulse: [49-78] Respirations: [10 PER MINUTE-36 PER MINUTE] SpO2: [99 %-100 %] O2 Delivery: Endotracheal Tube (Oral) Vitals: 10/21/18 0301 10/25/18 0400 10/26/18 0500 Weight: 52.8 kg (116 lb 6.5 oz) 53.7 kg (118 lb 6.2 oz) 52.2 kg (115 lb 1.3 oz) Intake/Output Summary: (Last 24 hours) Intake/Output Summary (Last 24 hours) at 10/26/2018 1127 Last data filed at 10/26/2018 0700 Gross per 24 hour Intake 1766.2 ml Output 2999 ml Net -1232.8 ml Stool Occurrence: 1 Physical Exam Intubated and sedated NC/AT PERRL EAC patent, bilateral TM intact. Serous effusion present bilaterally. Mild erythema of right TM Face symmetric Respirations regular and unlabored on ventilator Laboratory: Pertinent labs reviewed Radiology/Imaging: Pertinent radiology reviewed. MRI CT head and IAC reviewed with neuroradiology Repeat MRI 10/26 demonstrates previous right temporal lobe abscess. Final read pending Patient Active Problem List Diagnosis Date Noted Pneumocephalus 10/26/2018 Cerebritis 10/26/2018 Influenza A 10/26/2018 Abscess of brain 10/26/2018 Paroxysmal atrial fibrillation (HCC) 10/25/2018 Altered mental status, unspecified 10/20/2018 Pneumonia due to infectious organism 10/19/2018 Acute respiratory failure with hypoxia and hypercapnia (HCC) 10/19/2018 Assessment/Plan: Etelvina Alonso is a 58 y.o. female with complex medical history including CABG and nonhealing wounds on legs and recent pneumonia. She is admitted for altered mental status and was found to have pneumocephalus and cerebritis on imaging work up with concerns for right temporal lobe overlying the tegmen suggestive of focal cerebritis and developing abscess -- Agree with IV abx per primary and ID -- CSF cultures with NGTD -- Repeat MRI with re-demonstrating of right temporal lobe abscess. Final read pending. Will defer interventions for abscess to NSGY. - ENT will plan to take to OR Monday for tympanomastoidectomy - this was discussed with the patient this morning - NEICU requesting tracheostomy due to failure to wean. NeuroICU to discuss with family about trach and will notify ENT if patient and family are willing to proceed. - Please make NPO and hold anticoagulation at midnight on 10/29 -- Will obtain consent -- Agree with aggressive medical management Please page for any questions or concerns. Yoon Hernandez MD [id number] * Benny Sepulveda MD - 10/26/2018 7:32 AM CDT Infectious Disease Progress Note Name: Etelvina Alonso Today's Date: 10/26/2018 Admission Date: 10/19/2018 Consulted for Cerebritis suspected Type of consult: Co-management w/signed orders Assessment: Strep pneumo bacteremia Bilateral LE wounds due to CABG vein harvest, both tracking deep, L with purulent drainage Pneumocephalus with surrounding edema on CTA head 10/19/18 at OSH, cerebritis, possible developing abscess in basal right temporal lobe on MRI head 10/20/18 Influenza A with possible HCAP Acute hypoxic/hypercarbic respiratory failure -Past concern for biliateral LE wound infection as below -10/16 presented to [facility] with a few days of fever, cough -10/16/18: BC x 2 Strep Pneumo R- Clindamycin and erythromcyin S: ceftriaxone ( MARCY 0.094), PCN (MARCY 0.064), levo, TMP/S, vanc. Rapid Flu Ag negative. MRSA nasal screen negative. 10/17/18: Sputum culture: Yeast and normal chelsey -Rapid mental status deterioration, intubated -CTA head 10/19/18 at OSH, small area of intraparenchymal air above the mastoid air cells and some edema around that area, with concern for possible infection. Pt was transferred to for further management -10/19: CXR patchy mixed alveolar and interstitial opacities -10/20: Tracheal aspirate: < 10 PMN, < 10 squam, no orgs. Moderate growth no significant chelsey -10/20: LLE swab: Pseudomonas aeruginosa (R - meropenem, ceftazidime, pip/tazo; S - cefepime, tobramycin, gentamicin, ceftolozane/tazobactam and ceftazidime/ avibactam) -10/20: MRI head w/wo: Ovoid focus of diffusion restriction and partial rim enhancement in the basal right temporal lobe overlying the tegmen suggestive of focal cerebritis and developing abscess. Dependent diffusion restricting material within the lateral ventricles suspicious for ventriculitis. Thin complex left posterolateral convexity subdural fluid collection with diffusion restriction suggestive of thin subdural empyema. -10/23: JYOTSNA: There is a small echogenic mass on the coaptation line of the aortic valve. Appears to likely be associated with the left coronary cusp. A vegetation cannot be ruled out. 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 No stenosis. No regurgitation. -10/23: CSF - WBCs 23 (86% lymphocytes, 9% mono/histocytes, 3% neutrophils), RBCs 1, glucose 70, protein 70. Cx NGTD Echogenic mass seen on AV - 10/23/18 JYOTSNA: There is a small echogenic mass on the coaptation line of the aortic valve. Appears to likely be associated with the left coronary cusp. A vegetation cannot be ruled out. 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 No stenosis. No regurgitation. Concern for bilateral LE wound infection, [facility] Bilateral vein harvest sites on lower extremities from CABG in [facility], 07/2018 Multiple cultures in [facility]. 09/07/18- Culture from R leg incision - Staph aureus MSSA, enterobacter cloace. 09/19/18 L leg pseudomonas R-Aztreonam Throat August and early September 2018 patient received courses of cefdinir, clindamycin, doxycycline, and trimethoprim/sulfa of unclear duration. CAD s/p CABG in 07/2018 Possible sternal instability -On admission to possible sternal instability noted, not mentioned on imaging reports at or OSH -TTE 10/20/18: LVEF 35-40%, Mid To Distal Anteroapical Severe Hypokinesis To Akinesis, anterior mitral valve prolapse, moderate posterior lateral jet MV regurg HTN Depression Possible overdose prior to 10/16 admission -gabapentin, APAP/caffeine/butalbital H/o previous LE rash that improved after CABG Recommendations: -Will continue cefepime given her LLE wound growing Pseudomonas that shows resistance to meropenem. DEPUTY [address] infection likely S pneumo, which is well covered by the cefepime and also has good DEPUTY [address] penetration. Will tentatively plan for 2 weeks (from 10/23) of cefepime to treat both the LE wound infections and Strep pneumo bacteremia and suspected DEPUTY [address] abscess. Tentative last day of cefepime would be 11/05. -After cefepime she could be transitioned to ceftriaxone 2 g IV BID for meningitis. This would continue until at least 11/12 (4 weeks from 10/16). -Continue oseltamivir for influenza x 10 days total, through 10/30 -Continue fluconazole x7 days total, would stop after dose on 10/27/18 - Note ENT plan for OR Monday for tympanomastoidectomy -Monitor for abx side effects Shan Walker DO Infectious Diseases Fellow Pager # [phone] Discussed with attending on service, Dr. Sepulveda I have seen, personally evaluated, and discussed the patient's care with Dr. Walker, Infectious Diseases Fellow. I agree with the subjective notations, objective findings and agree with the plan of care as documented in this note with edits made by me as necessary. Benny Sepulveda MD Automation Engineering Technician Division of Infectious Diseases I will round on Monday. For any questions over the weekend please page the ID fellow travel services professional at [phone] Interval History Etelvina Alonso is a 58 y.o. female with a PMH significant for CABG (07/2018) who presented to [facility] in [facility] on 10/16/18 after noting worsening cough and sternal pain from recent sternotomy and non-healing LE graft sites. Transferred to [facility] on 10/19/18 for right temporal lobe intraparenchymal air and edema seen on CTA. Afebrile, intubated V/AC, 18, 40%, 5 Dexmedetomidine WBC 12.6 Cr 0.41 I/O: 2460/3374 (-913) Discussed with pt's at bedside Unable to complete ROS due to pt mental status Antimicrobial Start date End date Cefepime 10/16/18-10/18/18, 10/23 active Ceftriaxone 10/18/18 10/20/18 Cefedinir 09/23/18 PRODUCTION CONTROL TECHNOLOGIST, uncertain timeframe Doxycycline 100 mg PO BID 09/06/18 PRODUCTION CONTROL TECHNOLOGIST, uncertain timeframe Hyxvqvaqril532 mg PO BID 08/23/18 PRODUCTION CONTROL TECHNOLOGIST, uncertain timeframe Fluconazole 150 mg PO QD 08/17/18 PRODUCTION CONTROL TECHNOLOGIST, uncertain timeframe Vancomycin 10/20/1810/24 Ampicillin 10/20/18 10/20/18 Fluconazole 10/20/18 active Oseltamivir 10/21/18 active Meropenem 10/20/1810/23 Bactrim 08/17/18 PRODUCTION CONTROL TECHNOLOGIST, uncertain timeframe Estimated Creatinine Clearance: 73.1 mL/min (based on SCr of 0.41 mg/dL). Cardenas Results 10/24 C diff: negative 10/23 CSF GS/cx: rare neutrophils, no organisms seen, NGTD; WBCs 23 (86% lymphocytes, 9% mono/histocytes, 3% neutrophils), RBCs 1, glucose 70, protein 70 10/22 Blood cx: NGTD 10/20 LLE wound swab: Pseudomonas aeruginosa (R - meropenem, ceftazidime, pip/tazo ; S - cefepime, tobramycin, gentamicin, ceftaz/rachele, ceftolozane/tazo) 10/20 Tracheal aspirate: moderate growth no significant chelsey 10/20 Respiratory PCR panel: (+) influenza A 10/20 Blood cx: NGTD Prior cultures 10/16/18 Blood cx (from [address]): Strep Pneumo R- Clindamycin and erythromcyin Susceptible: ceftriaxone-dilut method 0.094, levofloxacin, penicillin e-dilut method 0.064, trimethoprim, and vancomycin 09/19/18 L leg: pseudomonas R-Aztreonam 09/07/18 Culture from R leg incision: Staph aureus MSSA, Enterobacter cloace 08/13/18 Sputum cx: Loretta glabrata and dublinesis Medications Scheduled Meds: amiodarone (CORDARONE) tablet 200 mg 200 mg Per OG Tube QDAY ascorbic acid (VITAMIN C) tablet 500 mg 500 mg Per NG tube QDAY aspirin chewable tablet 81 mg 81 mg Per OG Tube QDAY atorvastatin (LIPITOR) tablet 20 mg 20 mg Per OG Tube QHS budesonide respule (PULMICORT) nebulizer solution 1 mg 1 mg Inhalation BID cefepime (MAXIPIME) 2 g in sodium chloride 0.9% (NS) 100 mL IVPB (MB+) 2 g Intravenous Q8H* chlorhexidine gluconate (PERIDEX) 0.12 % solution 15 mL 15 mL Swish & Spit BID collagenase (SANTYL) topical ointment Topical BID docusate (COLACE) oral solution 100 mg 100 mg Per OG Tube BID famotidine (PEPCID) oral suspension 20 mg 20 mg Per NG tube BID fluconazole (DIFLUCAN) 200 mg/NS 100 mL IVPB 200 mg Intravenous Q24H* heparin (porcine) PF syringe 5,000 Units 5,000 Units Subcutaneous Q8H levETIRAcetam (KEPPRA) oral solution 500 mg 500 mg Feeding Tube BID metoprolol tartrate (LOPRESSOR) tablet 12.5 mg 12.5 mg Per OG Tube BID milk of magnesia (CONC) oral suspension 10 mL 10 mL Per OG Tube QDAY nicotine (NICODERM CQ STEP 1) 21 mg/day patch 1 patch 1 patch Transdermal QDAY( 21) oseltamivir (TAMIFLU) oral suspension 75 mg 75 mg Per NG tube BID potassium chloride oral solution 20 mEq 20 mEq Per OG Tube QDAY senna/docusate (SENOKOT-S) solution 10 mL 10 mL Per OG Tube BID sertraline (ZOLOFT) tablet 50 mg 50 mg SEE ADMIN INSTRUCTIONS QHS zinc sulfate capsule 220 mg 220 mg Per NG tube QDAY Continuous Infusions: dexmedetomidine (PRECEDEX) 400 mcg/NS 100 ml IV drip 0.7 mcg/kg/hr (725) PRN and Respiratory Meds:acetaminophen Q6H PRN, calcium gluconate IV PRN (Heating Operators Engineer from Rx) AND Ionized Calcium PRN AND Notify Physician Ongoing, fentaNYL citrate PF Q2H PRN, ipratropium/albuterol Q4H PRN, magnesium sulfate PRN AND [] Magnesium PRN AND Notify Physician Ongoing, oxyCODONE Q4H PRN, pancrelipase 20,000 Units/ sodium bicarbonate 650 mg(#) PRN (Heating Operators Engineer from Rx), potassium chloride SR PRN OR potassium chloride PRN Physical Examination Vital Signs: Last Vital Signs: 24 Hour Range BP: 96/57 (10/26 699) Temp: 37.1 C (98.8 F) (10/26 0400) Pulse: 64 (10/26 699) Respirations: 28 PER MINUTE (10/26 699) SpO2: 100 % (10/26 699) O2 Delivery: Endotracheal Tube (Oral) (10/26 0300) SpO2 Pulse: 57 (10/26 0700) BP: (93-118)/(36-92) Temp: [36.8 C (98.2 F)-37.3 C (99.1 F)] Pulse: [55-76] Respirations: [10 PER MINUTE-34 PER MINUTE] SpO2: [99 %-100 %] O2 Delivery: Endotracheal Tube (Oral) General appearance: Intubated, sedated H&N: mucus membranes moist; ET tube in place Lungs: rales in apices on anterior auscultation while on MV Heart: Tachycardic; no murmurs appreciated Abdomen: soft, non-tender, non-distended, normoactive bowel sounds, Ext: ulcerations on medial aspect of R and L extremities from prior vein grafting with no purulent drainage noted Skin: no rash Msk: no joint swelling or redness Psych: unable to assess Lines/drains/tubes: CVC in R IJ; ET tube; Salomon; NDT Laboratory Hematology Recent Labs 10/24/1819910/25/1831810/26/18315 WBC 16.3* 13.9* 12.6* HGB 8.9* 8.0* 7.8* HCT 27.1* 24.2* 23.7* PLTCT 378 327 355 Chemistry Recent Labs 10/24/1819910/25/1831810/25/18 0815 10/25/18 1400 10/26/18 0316 NA 140 -- 140 -- -- 140 K 3.5 < > 3.8 4.4 -- 3.6 CL 103 -- 107 -- -- 110 CO2 34* -- 30 -- -- 24 BUN 8 -- 9 -- -- 12 CR 0.37* -- 0.36* -- -- 0.41 GFR >60 -- >60 -- -- >60 GLU 115* -- 164* -- -- 161* CA 8.2* -- 7.9* -- -- 8.3* PO4 2.5 -- 1.6* -- 3.2 3.8 < >=values in this interval not displayed. Microbiology, Radiology and other Diagnostics Review Microbiology reviewed. Pertinent radiology reviewed. The patient is critically ill with concern for sepsis, meningitis, brain abscess. I spent 35 minutes personally reviewing the patient's vital signs, critical care flowsheets, labs, imaging studies, and clinical status, as well as examining the patient and providing recommendations regarding management including further diagnostic testing and antimicrobial therapy. * Ling Capellan PA-C - 10/26/2018 7:27 AM CDT CTS update note: Etelvina Lamb a 58 y.o.femalewith history of HTN, HLD, no nhealing leg wounds, CAD s/p CABG in07/2018 in [place] who presented to an OSH on 10/16 with shortness of breath and chest pains and found to have a RUL pneumonia. She was intubated on 10/17 2/2 worsening respiratory status and AMS. 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 She has failed ventilator weaning since transfer to [facility]. 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 VS: Afebrile, SB/SR 50-60s, SBP 90-110s Remains intubated, sedated on precedex Labs: Hgb 7.8, plt 355, WBC 12.6 Cr 0.41 Plan: 1. MRI head today to re-eval right temporal lobe abscess 2. No plans for surgical intervention on sternal non-union at this time. Would consider evaluation by plastic surgery for sternal reconstruction once extubated and recovered from her acute illness. I spent 15 minutes coordinating the care of this patient including examining the patient. * Mica Javed APRN - 10/26/2018 7:14 AM CDT Neuro Critical Care Progress Note Etelvina Alonso Admission Date: 10/19/2018 LOS: 7 days Full Code ASSESSMENT/PLAN Patient Active Problem List Diagnosis Date Noted Paroxysmal atrial fibrillation (HCC) 10/25/2018 Altered mental status, unspecified 10/20/2018 Pneumonia due to infectious organism 10/19/2018 Acute respiratory failure with hypoxia and hypercapnia (HCC) 10/19/2018 Etelvina Alonso is a 58 y.o. female with history of HTN, HLD, non-healing leg wounds, CAD s/p CABG in 07/2018 who presented to an OSH on 10/16 with shortness of breath and chest pains and found to have a RUL pneumonia. She was intubated on 10/17 2/2 worsening respiratory status and AMS. On 10/19, CTA with R temporal lobe intraparenchymal air and surrounding edema. Transferred to [facility] for escalation of care. Hospital and ICU course: 10/19: Transferred from OSH to IAICU 10/26: DC amiodarone. Start spironolactone 12.5mg daily and lasix 20mg daily. Placed flexiseal.. Plan for OR Monday Neuro/ENT: Altered mental status; Meningitis; right temporal lobe abscess Q1 neurochecks Keppra 500 mg BID Lumbar puncture10/24- WBC 23 RBC 1; HSV neg, culture NGTD Plans for OR with ENT Mondayfor mastoidectomy and tympanoplasty PT/OT Sertraline HS 10/26 MRI: 1. Evolution of abnormal signal and now [...] fluid collection likely reflecting improved subdural empyema. Sedation/Pain Management: Precedex PRN fentanyl, oxycodone and tylenol available - Assess for delirium daily Cardiac: HTN; HLD; CAD s/p CABG in 07/2018; Paroxysmal AF SBP goal: < 160 MAP goal > 65 PRODUCTION CONTROL TECHNOLOGIST metoprolol Start spironolactone - DC amiodarone (started for AFib ppx) - PRODUCTION CONTROL TECHNOLOGIST lisinopril on hold will discuss starting tomorrow PRODUCTION CONTROL TECHNOLOGIST atrovastatin and ASA - PRODUCTION CONTROL TECHNOLOGIST plavix on hold Echo today: 35-40%, mitral valve borderline prolapse and regurg no vegetations JYOTSNA:There is a small echogenic mass on the coaptation line of the aortic valve. Appears to likely be associated with the left coronary cusp. A vegetation Respiratory: RUL Pneumonia Date of Intubation: 10/17 Reason: Airway protection V/AC: Tv 370, RR 18, fiO2 40%, PEEP 5 - continue to attempt daily weaning trials, has been failing due to tachypnea when placed on pressure support - will possibly need trach placement with ENT early next week PRODUCTION CONTROL TECHNOLOGIST budesonide resumed Influenza virus positive - PaO2 goal >100, Spo2 goal >95%, PCO2 goal 35-40 10/25 chest xray: Mild cardiomegaly and pulmonary venous congestion with small left pleural effusion and bibasilar atelectasis. GI: Feeding: NPO, Isosource 1.5 @ 50 ml/hr with 250 ml water every 6 hours - decrease free water to 150 ml every 6 hours today Bowel regimen, ensure daily BM (last BM 10/25) Famotidine BID Heme: Trend daily CBC Hgb 7.8, Plt 355 SQ Heparin ASA ID: Leukocytosis (improving); PNA; + Step pneumo bacteremia; Non-healing wounds on frequent Abx; thrush TMax 37.1 WBC 12.6 ID consult appreciate recs Trend daily CBC Continuecefepime Tamiflu Fluconazole Aim for normothermia Renal: Trend daily BMP Resolved MARGO from admit at OSH with Cr 1.10 10/16 Cr now 0.41 Aim for normovolemia I&O over 24 hours -914ml Endocrine: Serum glucose 161 - Trend on daily BMP - Blood glucose goal 100-180mg/dl FEN: IVF: None Daily K+ Electrolyte protocol in place Magnesium goal >2.0, i-Earl goal > 1.0, Potassium goal >4.0 mEq/L Skin: - Left surgical incision dehiscence - Stage 2 pressure ulcer sacrum - Wound team following, treatment per recs Wounds (NOT for Pressure Injuries) 10/19/18 2330 Left Leg Surgical Incision ( Active) 10/19/18 2330 Leg Wound Orientation: Left Wound Type: Surgical Incision Wound Type:: Wound Description (Comments): Dehiscence from prior surgery Wound Image 10/31/2018 2:30 PM Agree With My Assessment? Yes, except 11/03/2018 4:00 AM Wound Base Assessment Clean;Moist 11/03/2018 8:00 AM Surrounding Skin Assessment Intact 11/03/2018 8:00 AM Wound Site Closure Wound Adhesive Bandage 11/03/2018 8:00 AM Wound Drainage Amount None 11/03/2018 8:00 AM Wound Drainage Description Serosanguineous 10/31/2018 8:00 PM Wound Dressing Status Intact 11/03/2018 8:00 AM Wound Dressing and / or Treatment Foam (B[place]ain) 11/03/2018 8:00 AM Wound Length (cm) 0.6 cm 10/31/2018 2:30 PM Wound Width (cm) 0.3 cm 10/31/2018 2:30 PM Wound Depth (cm) 0.4 cm 10/31/2018 2:30 PM Wound Surface Area (cm^2) 0.18 cm^2 10/31/2018 2:30 PM Wound Volume (cm^3) 0.07 cm^3 10/31/2018 2:30 PM Wound Healing % (Wound Team Only) 97.2 10/31/2018 2:30 PM Wound Status (Wound Team Only) Being Treated 10/31/2018 2:30 PM Undermining in CM (Wound Team Only) 0.6 cm 10/31/2018 2:30 PM Undermining Location 12:00 10/31/2018 2:30 PM Number of days: 21 Pressure Injury 10/24/18 0800 No Sacrum Stage 3 (Active) 10/24/18 08 Pressure Injury Present On Inpatient Admission: N Pressure Injury Orientation: Wound Location: Sacrum Pressure Injury Stages: Stage 3 If this pressure injury is suspected to be device related, please select the device:: Wound Image 10/30/2018 8:14 AM Agree With My Assessment? Yes 11/03/2018 4:00 AM Wound Dressing Status None 11/03/2018 8:00 AM Wound Dressing and / or Treatment Criticaid Barrier Cream 11/03/2018 8:00 AM Wound Drainage Amount None 11/03/2018 8:00 AM Wound Base Assessment Moist;[place] 11/03/2018 12:00 AM Surrounding Skin Assessment Intact 11/03/2018 8:00 AM Wound Status (Wound Team Only) Being Treated 10/30/2018 8:14 AM Wound Length (cm) 0.6 cm 10/30/2018 8:14 AM Wound Width (cm) 0.3 cm 10/30/2018 8:14 AM Wound Depth (cm) 0.2 cm 10/30/2018 8:14 AM Wound Surface Area (cm^2) 0.18 cm^2 10/30/2018 8:14 AM Wound Volume (cm^3) 0.04 cm^3 10/30/2018 8:14 AM Wound Healing % (Wound Team Only) -100 10/30/2018 8:14 AM Number of days: 16 Prophylaxis Review: A)GI: [id number] B) Lines:Yes; Central Line; Indication: Frequent blood draws; Type: Internal jugular C) Urinary Catheter:Yes; Retain salomon due to: Need for accurate Intake and Output D) Antibiotic Usage:Yes; Infection present or suspected: Lung; Pneumonia E) VTE:Pharmacological prophylaxis; SQ Heparinand Mechanical prophylaxis; Sequential compression device F) Isolation:na G)Seizures:na I) Restraints: Patient assessed for need for restraints. Disposition/Family:Require ICU monitoring Primary service:NEICU Consults: None SUBJECTIVE Etelvina Alonso is a 58 y.o. female. Overnight Events: No new events noted. OBJECTIVE Vital Signs: Last Filed Vital Signs: 24 Hour Range BP: 96/57 (10/26 07) Temp: 37.1 C (98.8 F) (10/26 040) Pulse: 64 (10/26 699) Respirations: 28 PER MINUTE (10/26 699) SpO2: 100 % (10/26 699) O2 Delivery: Endotracheal Tube (Oral) (10/26 0300) Weight: 52.2 kg (115 lb 1.3 oz) (10/26 0500) BP: (93-118)/(36-92) Temp: [36.8 C (98.2 F)-37.3 C (99.1 F)] Pulse: [55-76] Respirations: [10 PER MINUTE-34 PER MINUTE] SpO2: [99 %-100 %] O2 Delivery: Endotracheal Tube (Oral) Intensity Pain Scale (Self Report): (not recorded) Vitals: 10/21/18 0301 10/25/18 0400 10/26/18 0500 Weight: 52.8 kg (116 lb 6.5 oz) 53.7 kg (118 lb 6.2 oz) 52.2 kg (115 lb 1.3 oz) Artificial airway: Endotracheal Tube Ventilator/ Respiratory Therapy: Yes: Weaning readiness screen (RT Only):: Implement protocol Weaning readiness screen Met (RT Only):: Yes NIF: [-32 cm H2O] Weaning Minute Volume (L/min): [8.9 L/min] Weaning Tidal Vol (mL) (Calc.): [270 mL] $$ Vital Capacity (mL): [0 ml] Weaning Respiratory Rate: [33 breaths/min] RSBI (Calculated): [122] Mode: V/AC+ Set Vt (ml): [370 milliliters] Tidal Volume Spont (mL): [226 milliliters-362 milliliters] Set RR: [18 breaths/minutes] Total Respiratory Rate (Breaths/Min): [23 breaths/minutes-33 breaths/minutes] Minute Volume (L/min): [4.32 liters/minutes-11.6 liters/minutes] O2%: [40 %] PIP Actual: [11 cm H20-26 cm H20] PEEP/CPAP: [5 cm H2O] PSupport: [5 cm H20] Vent weaning trial: Per protocol Lines: Central Line Drains: Salomon Catheter: 3374 mL Intake/Output Summary: (Last 24 hours) Intake/Output Summary (Last 24 hours) at 10/26/2018 0714 Last data filed at 10/26/2018 0700 Gross per 24 hour Intake 2460.1 ml Output 3374 ml Net -913.9 ml Stool Occurrence: 1 Physical Exam: Blood pressure 96/57, pulse 64, temperature 37.1 C (98.8 F), height 162.6 cm (64"), weight 52.2 kg (115 lb 1.3 oz), SpO2 100 %. [place] coma score: E: 4 - Opens eyes on own M: 5 - Localizes to pain V: 1 - Makes no noise Neuro: Mental Status: Alert Cranial Nerves: - Pupil exam: Size: R - 3mm, L - 4mm Reactivity: brisk - Corneal reflex: R - present L - present - Grimace/facial movement: present - Cough: present Motor: Moves all extremities spontaneously RUE: Strength: 5/5 RLE: Strength: 5/5 LUE: Strength: 5/5 LLE: Strength: 5/5 Lungs: clear to auscultation bilaterally Pulmonary: Respiratory status: Stable on mechanical ventilation Heart: S1, S2 normal Abdomen: soft, non-tender. Bowel sounds normal. No masses, no organomegaly Extremities: extremities normal, atraumatic, no cyanosis or edema Skin: Skin color, texture, turgor normal. No rashes or lesions Point of Care Testing: (Last 24 hours) Glucose: (!) 161 (10/26/18 0316) Lab Review: Pertinent labs reviewed Radiology and Other Diagnostic Procedures Review: Pertinent radiologic and diagnostic procedures reviewed. Mica Javed APRN Date: 10/26/[phone] I spent 50 minutes managing the care of this patient. Ms Abby is critically ill with encephalitis, meningitis, right temporal lobe abscess, pneumonia. Cares included: detailed neurologic and systems exam, medication review, laboratory data review and interpretation, electrolyte management, review of available imaging, DVT/PE prophylaxis review, diet review, activity review, mechanical ventilation and sedation management, and coordination of care with consulted teams * Farhad Perez MD - 10/25/2018 11:45 PM CDT N:Meningits encephalocoel- may have repair on Monday if she continues to improve Wbc 23, lymphocytic, obtained after antibiotics had been used for an extended duration MRI without discrete enough abscess collection for surgical drainage. Small encephalocoele may be revisited after clinical improvement. Will repeat MRI tomorrow 10/26 to assist with future planning if clinically indicated Previous leg wounds from vein harvest site and previous pneumonia and previous s pneumoniae bacteremia Improving clinically. She now has eye opening and moving all extremities - somewhat without directed purpose. Not quite following commands. Continue seizure prophylaxis CV: flail sternum - CTS consult appreciated I do not think her chest is currently infected. Will talk to about proceding with trach and then will revisit sternal fixation at a later date if she has persistent failure to wean after that Recent emergent CABG at the [facility] in [facility]. her leg wound infections may have been influenced by the fact that she lived in an extended stay hotel in [place] and lives in one bedroom apartment with 6 people in [facility] and she has continued to smoke until this admission. Will d/c amiodarone after some further diuresis Will remain of plavix - I can see no reason why she reverted to this- it was not a current med at her CTS visit for her leg wounds in [place]. Her CTS surgery op report does not make mention of previous stents in bypassed vessels- will try to obtain cath report tomorrow. Continue asa, atorvastatin. Give lasix 20mg IV x2 today,plus acetazolamide On home lasix 20 EF 35-40% Resp: failure to wean Plan for trach on monday May have sternal fixation at a later date with CTS and/or plastics During pressure support trials becomes tachypneic RR>40 immediately Flail sternum appears to be a strong factor. Previous pneumonia Currently with minimal secretions, good oxygenation Heavy smoker - has been smoking 1ppd since surgery COPD I discussed trach with her and he is amenable to this after we investigate sternal fixation- he will be travelling to [facility] today but will return tomorrow She has been intubated >1 week Renal:positive volume status in the setting of infection Metabolic alkalosisI GI: continue tube feeds may have npo if she will go for possible surgery. ID: meningitis Previous s. 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 Central line in place. As she has been culture negative on her blood (10/20 and 10/22) will be able to place PICC for custodial abx. Continue meropenem and vancomycin Fluconazole for thrush Oseltamivir for + influenza Persistent leukocytosis, low grade fever, but neurologic improvement. 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 y.o. female admitted 10/19/2018 to the NEICU critically ill with respiratory failure and is receiving critical care services for the treatment of this primary diagnosis and the prevention and management of secondary injuries. I have reviewed the events, seen, personally examined, fully evaluated, and discussed this patient with NeuroICU team during the team rounds. I agree with the objective findings and agree with the plan of care as documented by the resident with the exceptions noted. This patient exhibits injury of at least one organ system and there is high probability of imminent or life-threatening deterioration in patient's condition. As such, there is a need for continued medical attention including frequent neurological examination, frequent vital signs, and the cares appropriate for an ICU. I spent 55 minutes providing and personally directing neurological care services. Family and patient were counseled about the diagnosis, treatment plan , and prognosis. Farhad Perez MD Date: 10/25/2018 * Kelly Vitale, RD - 10/25/2018 3:45 PM CDT CLINICAL NUTRITION Clinical Nutrition Follow-Up Summary NAME:Etelvina Alonso :1960 AGE: 58 y.o. ADMISSION DATE: 10/19/2018 DAYS ADMITTED: LOS: 6 days Nutrition Assessment of Patient: Malnutrition Assessment: (pending subjective information) Current Oral Intake: NPO Estimated Calorie Needs: 1821-2084 kcal(25-30 kcal/kg per present wt 52.8kg) Estimated Protein Needs: 66-80(1.25-1.5g/kg present wt) Oral Diet Order: NPO Current EN Order: Isosource 1.5 @ 50 ml/hr + 150 ml water bolus Q6hr. At goal would provide 1800 kcal, 82 gm protein and 912 ml free water from EN at goal with additional 600 ml water from ordered boluses. Comments: 58 yo female with hx of COPD, HTN, HLD, CAD s/p CABG in 07/2018 with non- healing leg wounds who presented to an OSH on 10/16 with shortness of breath and chest pains and was found to have a RUL pneumonia. She was intubated on 10/17 secondary to worsening respiratory status and AMS. On 10/19, CTA showed R temporal lobe intraparenchymal air and surrounding edema. Transferred to [facility] for escalation of care. Pt remains intubated and sedated on Precedex at this time. Propofol off. OGT in place. EN of Isosource 1.5 @ 50 ml/hr. Tolerated advancement in EN rate with lyte replacement PRN. 3 day EN ave 10/22- met 94% min kcal goal and within protein goal range. Unable to obtain subjective data, diet/wt history. New small stage II pressure injury to sacrum. Recommendation: Off propofol, recommend Isosource 1.5 @ goal of 45 ml/hr to provide 1620 kcal, 73 gm protein and 820 ml free water from EN at goal. Additional fluids per primary team. If patient extubated, recommend diet textures per SEASONAL SALES ASSOCIATE recs with eventual goal diet of Cardiac Intervention / Plan: Updated EN recs with stage II pressure injury and ordered vit C, zinc supplementation Will monitor EN tolerance/provision and wt trends, GI symptoms, labs, meds, I/ Os Obtain subjective information as able Nutrition Diagnosis: Altered GI function Etiology: respiratory status s/p pneumocephalus Signs & Symptoms: NPO status with need for EN to meet nutritional needs Goals: Initiate nutrition Time Frame: Within 24 Hours Status: Met EN tolerated and meeting >50% of nutritional needs Time Frame: Within 72 Hours Status: Met;new goal established EN tolerated and meeting >85% of nutritional needs Time Frame: Throughout Stay Kelly Vitale, MS,RD, LD, CNSC *[id number] * Elenita Butler, OT - 10/25/2018 1:49 PM CDT OCCUPATIONAL THERAPY ASSESSMENT NOTE Patient Name: Etelvina Alonso Room/Bed: [id number] Admitting Diagnosis: altered mental status Mobility Progressive Mobility Level: Active bed level mobility Level of Assistance: Assist X2 Assistive Device: None Time Tolerated: 0-10 minutes Activity Limited By: Patient request to stop Subjective Pertinent Dx per Physician: HTN, HLD, no nhealing leg wounds, CAD s/p CABG in in [place] who presented to an OSH on 10/16 with shortness of breath and chest pains and found to have a RUL pneumonia. She was intubated on 10/17 2/2 worsening respiratory status and AMS. Workup showed cerebritis, tegmen dehisence , encephalocele, possible temporal lobe abscess. Sternal nonunion, 2 loosened sternal wires, nonop per CTS. Precautions: Sternal Precautions;Falls;NPO Comments: Pt c/o pain with scooting up in bed, not able to indicate where having pain but shook head no to chest or back pain. No pain at rest. Objective Psychosocial Status: Participates in Therapy with Encouragement(declined to sit edge of bed but assisted to boost) Persons Present: Physical Therapist Prior Function Other Function Comments: Pt intubated and unable to answer at this time. Chart indicates pt is a heavy smoker, has had popping in chest shortly after CABG in July. Vision Comment: makes eye contact to L and R, more cueing required to look L, not wanting to turn head to L but able with cues. Not able to mouth the word nor hold up number of fingers to indicate that she sees how many fingers OT is holding up on L. Difficult to determine if visual vs cognitive deficit or both. Will continue to assess. ADL's Comment: Total assist for all. Pt intubated but awake and answering yes/no questions via head nod, following some motor commands. Pt adamantly declined to sit edge of bed with therapists' assist despite encouragement and education on purpose of activity. Pt nodded that she wanted to scoot up in bed and was able to assist with bridging a few times for adjustment of chux and drawsheet and scooting up to top of bed. Moving all four limbs, B wrist restraints in place due to high risk of self-extubation. Pt moving hands spontaneously and moves UE's when wrist restraints removed briefly, but not following commands for formal ROM and strength testing. Pt mouthing word "poop" and OT and RN assisted pt onto bedpan, pt bridging to get on bedpan. Cognition Cognition Comment: briskly answers yes/no questions and follows some motor commands. Will further assess once extubated and better able to communicate. See above comments. UE PROM Overall BUE PROM WNL: Yes UE AROM Comment: grossly WFL Education Persons Educated: Patient Teaching Methods: Verbal Instruction Patient Response: Return Demonstration Topics: Role of OT, Goals for Therapy Assessment Assessment: Decreased ADL Status;Decreased Endurance;Decreased Self-Care Trans; Decreased High-Level ADLs;Decreased Safe/Judg during ADL Prognosis: Good;w/Cont OT s/p Acute Discharge AM-PAC 6 Clicks Daily Activity Inpatient Putting on and taking off regular lower body clothes?: Total Bathing (Including washing, rinsing, drying): Total Toileting, which includes using toilet, bedpan, or urinal: Total Putting on and taking off regular upper body clothing: Total Taking care of personal grooming such as brushing teeth: Total Eating meals?: Total Daily Activity Raw Score: 6 Standardized (t-scale) score: 17.07 CMS 0-100% Score: 100 CMS G Code Modifier: CN Plan OT Frequency: 5x/week OT Plan for Next Visit: sit edge of bed, upright tolerance and endurance for ADLs, progress to grooming and other ADLs once extubated ADL Goals Patient Will Perform Grooming: w/ Minimum Assist;in Chair Other ADL Goal 1: Pt to sit edge of bed with minimal assist X3 minutes with stable vitals Arm Goals Pt Will Perform AROM: 10 Reps(all planes of motion with stable vitals) OT Discharge Recommendations OT Discharge Recommendations: Inpatient Setting Equipment Recommendations: Too early to be determined Therapist: Elenita Butler OT Date: 10/25/2018 * Louise Hennessy, PT - 10/25/2018 1:40 PM CDT PHYSICAL THERAPY NOTE Attempted to see patient for Physical Therapy this date. Pt intubated but awake and answering yes/no questions via head nod, and following some motor commands. Pt adamantly declined to sit edge of bed with therapists' assist despite encouragement and education on purpose of activity. Pt nodded that she wanted to scoot up in bed and was able to assist with bridging a few times for adjustment of chux and drawsheet and scooting up to top of bed. Moving all four limbs, B wrist restraints in place due to high risk of self-extubation. Positioned patient in bed and all needs in reach. Will continue to follow and evaluate as able and indicated. Therapist: Louise Hennessy, MARSHA Date: 10/25/2018 * Benny Sepulveda MD - 10/25/2018 8:26 AM CDT Infectious Disease Progress Note Name: Etelvina Alonso Today's Date: 10/25/2018 Admission Date: 10/19/2018 Consulted for Cerebritis suspected Type of consult: Co-management w/signed orders Assessment: Strep pneumo bacteremia Bilateral LE wounds due to CABG vein harvest, both tracking deep, L with purulent drainage Pneumocephalus with surrounding edema on CTA head 10/19/18 at OSH, cerebritis, possible developing abscess in basal right temporal lobe on MRI head 10/20/18 Influenza A with possible HCAP Acute hypoxic/hypercarbic respiratory failure -Past concern for biliateral LE wound infection as below -10/16 presented to [facility] with a few days of fever, cough -10/16/18: BC x 2 Strep Pneumo R- Clindamycin and erythromcyin S: ceftriaxone ( MARCY 0.094), PCN (MARCY 0.064), levo, TMP/S, vanc. Rapid Flu Ag negative. MRSA nasal screen negative. 10/17/18: Sputum culture: Yeast and normal chelsey -Rapid mental status deterioration, intubated -CTA head 10/19/18 at OSH, small area of intraparenchymal air above the mastoid air cells and some edema around that area, with concern for possible infection. Pt was transferred to for further management -10/19: CXR patchy mixed alveolar and interstitial opacities -10/20: Tracheal aspirate: < 10 PMN, < 10 squam, no orgs. Moderate growth no significant chelsey -10/20: LLE swab: Pseudomonas aeruginosa (R - meropenem, ceftazidime, pip/tazo; S - cefepime, tobramycin, gentamicin, ceftolozane/tazobactam and ceftazidime/ avibactam) -10/20: MRI head w/wo: Ovoid focus of diffusion restriction and partial rim enhancement in the basal right temporal lobe overlying the tegmen suggestive of focal cerebritis and developing abscess. Dependent diffusion restricting material within the lateral ventricles suspicious for ventriculitis. Thin complex left posterolateral convexity subdural fluid collection with diffusion restriction suggestive of thin subdural empyema. -10/23: JYOTSNA: There is a small echogenic mass on the coaptation line of the aortic valve. Appears to likely be associated with the left coronary cusp. A vegetation cannot be ruled out. 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 No stenosis. No regurgitation. -10/23: CSF - WBCs 23 (86% lymphocytes, 9% mono/histocytes, 3% neutrophils), RBCs 1, glucose 70, protein 70. Cx NGTD Echogenic mass seen on AV - 10/23/18 JYOTSNA: There is a small echogenic mass on the coaptation line of the aortic valve. Appears to likely be associated with the left coronary cusp. A vegetation cannot be ruled out. 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 No stenosis. No regurgitation. Concern for bilateral LE wound infection, [facility] Bilateral vein harvest sites on lower extremities from CABG in [facility], 07/2018 Multiple cultures in [facility]. 09/07/18- Culture from R leg incision - Staph aureus MSSA, enterobacter cloace. 09/19/18 L leg pseudomonas R-Aztreonam Throat August and early September 2018 patient received courses of cefdinir, clindamycin, doxycycline, and trimethoprim/sulfa of unclear duration. CAD s/p CABG in 07/2018 Possible sternal instability -On admission to possible sternal instability noted, not mentioned on imaging reports at or OSH -TTE 10/20/18: LVEF 35-40%, Mid To Distal Anteroapical Severe Hypokinesis To Akinesis, anterior mitral valve prolapse, moderate posterior lateral jet MV regurg HTN Depression Possible overdose prior to 10/16 admission -gabapentin, APAP/caffeine/butalbital H/o previous LE rash that improved after CABG Recommendations: -Will continue cefepime given her LLE wound growing Pseudomonas that shows resistance to meropenem. DEPUTY COURT infection likely S pneumo, which is well covered by the cefepime and also has good DEPUTY COURT penetration. Will tentatively plan for 2 weeks (from 10/23) of cefepime to treat both the LE wound infections and Strep pneumo bacteremia and suspected DEPUTY [address] abscess. Tentative last day of cefepime would be 11/05. -After cefepime she could be transitioned to ceftriaxone 2 g IV BID for meningitis, possible endocarditis and abscess. This would continue until at least 11/12 depending (4 weeks from 10/16) on the evolution of her brain MRI/ possible abscess. -Note plan for f/u MRI 10/26, agree. Will guide need for surgical intervention -Continue oseltamivir for influenza x 10 days total, through 10/30 -Continue fluconazole for thrush for now, may be able to stop in the coming days -Monitor for abx side effects Benny Sepulveda MD Automation Engineering Technician Division of Infectious Diseases Interval History Etelvina Alonso is a 58 y.o. female with a PMH significant for CABG (07/2018) who presented to [facility] in [facility] on 10/16/18 after noting worsening cough and sternal pain from recent sternotomy and non-healing LE graft sites. Transferred to [facility] on 10/19/18 for right temporal lobe intraparenchymal air and edema seen on CTA. Afebrile, intubated V/AC, 18, 40%, 5 Dexmedetomidine WBC down to 13.9, Cr 0.36 Cdiff PCR negative Unable to complete ROS due to pt mental status Antimicrobial Start date End date Cefepime 10/16/18-10/18/18, 10/23 active Ceftriaxone 10/18/18 10/20/18 Cefedinir 09/23/18 PRODUCTION CONTROL TECHNOLOGIST, uncertain timeframe Doxycycline 100 mg PO BID 09/06/18 PRODUCTION CONTROL TECHNOLOGIST, uncertain timeframe [id number] mg PO BID 08/23/18 PRODUCTION CONTROL TECHNOLOGIST, uncertain timeframe Fluconazole 150 mg PO QD 08/17/18 PRODUCTION CONTROL TECHNOLOGIST, uncertain timeframe Vancomycin 10/20/1810/24 Ampicillin 10/20/18 10/20/18 Fluconazole 10/20/18 active Oseltamivir 10/21/18 active Meropenem 10/20/1810/23 Bactrim 08/17/18 PRODUCTION CONTROL TECHNOLOGIST, uncertain timeframe Estimated Creatinine Clearance: 75.2 mL/min (A) (based on SCr of 0.36 mg/dL (L)) . Cardenas Results 10/23 CSF GS/cx: rare neutrophils, no organisms seen, NGTD; WBCs 23 (86% lymphocytes, 9% mono/histocytes, 3% neutrophils), RBCs 1, glucose 70, protein 70 10/22 Blood cx: NGTD 10/20 LLE wound swab: Pseudomonas aeruginosa (R - meropenem, ceftazidime, pip/tazo ; S - cefepime, tobramycin, gentamicin, ceftaz/rachele, ceftolozane/tazo) 10/20 Tracheal aspirate: moderate growth no significant chelsey 10/20 Respiratory PCR panel: (+) influenza A 10/20 Blood cx: NGTD Prior cultures 10/16/18 Blood cx (from [facility]): Strep Pneumo R- Clindamycin and erythromcyin Susceptible: ceftriaxone-dilut method 0.094, levofloxacin, penicillin e-dilut method 0.064, trimethoprim, and vancomycin 09/19/18 L leg: pseudomonas R-Aztreonam 09/07/18 Culture from R leg incision: Staph aureus MSSA, Enterobacter cloace 08/13/18 Sputum cx: Loretta glabrata and dublinesis Medications Scheduled Meds: amiodarone (CORDARONE) tablet 200 mg 200 mg Per OG Tube QDAY aspirin chewable tablet 81 mg 81 mg Per OG Tube QDAY atorvastatin (LIPITOR) tablet 20 mg 20 mg Per OG Tube QHS budesonide respule (PULMICORT) nebulizer solution 1 mg 1 mg Inhalation BID cefepime (MAXIPIME) 2 g in sodium chloride 0.9% (NS) 100 mL IVPB (MB+) 2 g Intravenous Q8H* chlorhexidine gluconate (PERIDEX) 0.12 % solution 15 mL 15 mL Swish & Spit BID collagenase (SANTYL) topical ointment Topical BID docusate (COLACE) oral solution 100 mg 100 mg Per OG Tube BID fluconazole (DIFLUCAN) 200 mg/NS 100 mL IVPB 200 mg Intravenous Q24H* heparin (porcine) PF syringe 5,000 Units 5,000 Units Subcutaneous Q8H levETIRAcetam (KEPPRA) oral solution 500 mg 500 mg Feeding Tube BID metoprolol tartrate (LOPRESSOR) tablet 12.5 mg 12.5 mg Per OG Tube BID milk of magnesia (CONC) oral suspension 10 mL 10 mL Per OG Tube QDAY nicotine (NICODERM CQ STEP 1) 21 mg/day patch 1 patch 1 patch Transdermal QDAY( 21) oseltamivir (TAMIFLU) oral suspension 75 mg 75 mg Per NG tube BID pantoprazole(#) (PROTONIX) suspension 40 mg 40 mg Per NG tube QDAY(21) potassium chloride oral solution 20 mEq 20 mEq Per OG Tube QDAY potassium phosphate 20 mmol in dextrose 5% (D5W) 250 mL IVPB (CENTRAL LINE ONLY ) 20 mmol Intravenous ONCE senna/docusate (SENOKOT-S) solution 10 mL 10 mL Per OG Tube BID sertraline (ZOLOFT) tablet 50 mg 50 mg SEE ADMIN INSTRUCTIONS QHS Continuous Infusions: dexmedetomidine (PRECEDEX) 400 mcg/NS 100 ml IV drip 1 mcg/kg/hr (10/25/18 0427) sodium chloride 0.9 % infusion 75 mL/hr at 10/24/180 PRN and Respiratory Meds:acetaminophen Q6H PRN, calcium gluconate IV PRN (Heating Operators Engineer from Rx) AND Ionized Calcium PRN AND Notify Physician Ongoing, fentaNYL citrate PF Q2H PRN, ipratropium/albuterol Q4H PRN, magnesium sulfate PRN AND [] Magnesium PRN AND Notify Physician Ongoing, oxyCODONE Q4H PRN, pancrelipase 20,000 Units/ sodium bicarbonate 650 mg(#) PRN (Heating Operators Engineer from Rx), potassium chloride SR PRN OR potassium chloride PRN Physical Examination Vital Signs: Last Vital Signs: 24 Hour Range BP: 107/57 (10/26 799) Temp: 37 C (98.6 F) (10/26 799) Pulse: 76 (10/25 806) Respirations: 28 PER MINUTE (10/25 806) SpO2: 100 % (10/25 806) O2 Delivery: Endotracheal Tube (Oral) (10/26 799) SpO2 Pulse: 65 (10/26 799) BP: (99-154)/(51-129) Temp: [36.9 C (98.5 F)-37.5 C (99.5 F)] Pulse: [65-115] Respirations: [18 PER MINUTE-33 PER MINUTE] SpO2: [97 %-100 %] O2 Delivery: Endotracheal Tube (Oral) General appearance: Intubated, sedated H&N: mucus membranes moist; ET tube in place Lungs: rales in apices on anterior auscultation while on MV Heart: Tachycardic; no murmurs appreciated Abdomen: soft, non-tender, non-distended, normoactive bowel sounds, Ext: ulcerations on medial aspect of R and L extremities from prior vein grafting with no purulent drainage noted Skin: no rash Msk: no joint swelling or redness Psych: unable to assess Lines/drains/tubes: CVC in R IJ; ET tube; Salomon; NDT Laboratory Hematology Recent Labs 10/23/18 0325 10/24/18 0200 10/25/18 0319 WBC 16.9* 16.3* 13.9* HGB 8.2* 8.9* 8.0* HCT 25.2* 27.1* 24.2* PLTCT 312 378 327 Chemistry Recent Labs 10/23/18 0325 10/24/18 0200 10/24/18 0956 10/25/18 0319 NA 145 -- 140 -- 140 K 3.4* < > 3.5 3.5 3.8 CL 106 -- 103 -- 107 CO2 36* -- 34* -- 30 BUN 10 -- 8 -- 9 CR 0.33* -- 0.37* -- 0.36* GFR >60 -- >60 -- >60 GLU 121* -- 115* -- 164* CA 8.1* -- 8.2* -- 7.9* PO4 1.6* -- 2.5 -- 1.6* < >=values in this interval not displayed. Microbiology, Radiology and other Diagnostics Review Microbiology reviewed. Pertinent radiology reviewed. The patient is critically ill with concern for sepsis, meningitis, brain abscess. I spent 35 minutes personally reviewing the patient's vital signs, critical care flowsheets, labs, imaging studies, and clinical status, as well as examining the patient and providing recommendations regarding management including further diagnostic testing and antimicrobial therapy. * Yessica Burris MD - 10/25/2018 8:14 AM CDT CLEMENTINE/HNS PROGRESS NOTE Today's Date: 10/25/2018 Admission Date: 10/19/2018 LOS: 6 days Subjective No acute events overnight. Responds to stimuli. Remains intubated and sedated- did not tolerate vent weaning yesterday. Objective Vital Signs: Last Filed Vital Signs: 24 Hour Range BP: 107/57 (10/26 799) Temp: 37 C (98.6 F) (10/26 799) Pulse: 76 (10/25 806) Respirations: 28 PER MINUTE (10/25 806) SpO2: 100 % (10/25 806) O2 Delivery: Endotracheal Tube (Oral) (10/26 799) SpO2 Pulse: 65 (10/26 799) BP: (99-154)/(51-129) Temp: [36.9 C (98.5 F)-37.5 C (99.5 F)] Pulse: [65-115] Respirations: [18 PER MINUTE-33 PER MINUTE] SpO2: [97 %-100 %] O2 Delivery: Endotracheal Tube (Oral) Vitals: 10/20/18 1010 10/21/18 0301 10/25/18 0400 Weight: 54 kg (119 lb) 52.8 kg (116 lb 6.5 oz) 53.7 kg (118 lb 6.2 oz) Intake/Output Summary: (Last 24 hours) Intake/Output Summary (Last 24 hours) at 10/25/2018 0814 Last data filed at 10/25/2018 0800 Gross per 24 hour Intake 5168.41 ml Output 2440 ml Net 2728.41 ml Stool Occurrence: 1 Physical Exam Intubated and sedated NC/AT PERRL Face symmetric Respirations regular and unlabored on ventilator Laboratory: Pertinent labs reviewed Radiology/Imaging: Pertinent radiology reviewed. MRI CT headand IAC reviewed with neuroradiology Patient Active Problem List Diagnosis Date Noted Altered mental status, unspecified 10/20/2018 Pneumonia due to infectious organism 10/19/2018 Acute respiratory failure with hypoxia and hypercapnia (HCC) 10/19/2018 Assessment/Plan: Etelvina Alonso is a 58 y.o. female with complex medical history including CABG and nonhealing wounds on legs and recent pneumonia. She is admitted for altered mental status and was found to have pneumocephalus and cerebritis on imaging work up with concerns for right temporal lobe overlying the tegmen suggestive of focal cerebritis and developing abscess -- Agree with ID c/s and IV antibiotics -- CSF cultures with NGT will continue to follow -- Agree with repeat MRI on 10/26 head to determine evolution of right temporal lobe abscess; will determine need for further surgical interventions based on results -- Agree with aggressive medical management Please page for any questions or concerns. Yessica Burris MD [id number] * Beatriz Cardoza, SEMAJ - 10/25/2018 7:22 AM CDT Neuro Critical Care Progress Note Etelvina Alonso Admission Date: 10/19/2018 LOS: 6 days Full Code ASSESSMENT/PLAN Patient Active Problem List Diagnosis Date Noted Paroxysmal atrial fibrillation (HCC) 10/25/2018 Altered mental status, unspecified 10/20/2018 Pneumonia due to infectious organism 10/19/2018 Acute respiratory failure with hypoxia and hypercapnia (HCC) 10/19/2018 Etelvina Alonso is a 58 y.o. female with history of HTN, HLD, no non-healing leg wounds, CAD s/p CABG in 07/2018 who presented to an OSH on 3/5 with shortness of breath and chest pains and found to have a RUL pneumonia. She was intubated on 10/17 2/2 worsening respiratory status and AMS. On 10/19, CTA with R temporal lobe intraparenchymal air and surrounding edema. Transferred to [facility] for escalation of care. Hospital and ICU course: 10/19: [facility] Neuro/ENT: Altered mental status; Meningitis; right temporal lobe abscess Q1 neurochecks Keppra 500 mg BID Lumbar puncture 10/24 Repeat MRI on Monday Plans for OR with ENT Monday for mastoidectomy and tympanoplasty PT/OT Sedation/Pain Management: Precedex PRN fentanyl, oxycodone and tylenol available - Assess for delirium daily Cardiac: HTN; HLD; CAD s/p CABG in 07/2018; Paroxysmal AF SBP goal: < 160 MAP goal > 65 PRODUCTION CONTROL TECHNOLOGIST metoprolol, amiodarone - PRODUCTION CONTROL TECHNOLOGIST lisinopril on hold PRODUCTION CONTROL TECHNOLOGIST atrovastatin and ASA - PRODUCTION CONTROL TECHNOLOGIST plavix on hold Echo today: 35-40%, mitral valve borderline prolapse and regurg no vegetations JYOTSNA: There is a small echogenic mass on the coaptation line of the aortic valve. Appears to likely be associated with the left coronary cusp. A vegetation Respiratory: RUL Pneumonia Date of Intubation: 10/17 Reason: Airway protection V/AC: Tv 370, RR 18, fiO2 40%, PEEP 5 - continue to attempt daily weaning trials, has been failing due to tachypnea when placed on pressure support - will possibly need trach placement with ENT early next week PRODUCTION CONTROL TECHNOLOGIST budesonide resumed Influenza virus positive - PaO2 goal >100, Spo2 goal >95%, PCO2 goal 35-40 10/25 chest xray: Mild cardiomegaly and pulmonary venous congestion with small left pleural effusion and bibasilar atelectasis. GI: Feeding: NPO, Isosource 1.5 @ 50 ml/hr with 250 ml water every 6 hours - decrease free water to 150 ml every 6 hours today Bowel regimen, ensure daily BM (last BM 10/25) Heme: Trend daily CBC - Hgb 8.0, Plt 327 SQ Heparin ASA ID: Leukocytosis (improving); PNA; + Step pneumo bacteremia; Non-healing wounds on frequent Abx; thrush Afebrile, WBC 13.9 ID consult appreciate recs Trend daily CBC Continue cefepime Tamaflu Fluconazole Aim for normothermia Renal: Trend daily BMP Resolved MARGO from admit at OSH with Cr 1.10 3/5 Cr now 0.36 Aim for normovolemia - lasix 20 mg IV x 1, may repeat later today Intake/Output Summary (Last 24 hours) at 10/25/2018 1319 Last data filed at 10/25/2018 1200 Gross per 24 hour Intake 4534.21 ml Output 1795 ml Net 2739.21 ml Endocrine: Serum glucose 107 - Trend on daily BMP - Blood glucose goal 100-180mg/dl FEN: IVF: None K 3.8 Mg 2.2 Phos 1.6 iCal 1.[address] - Phos replaced, will recheck this afternoon Magnesium goal >2.0, i-Earl goal > 1.0, Potassium goal >4.0 mEq/L Prophylaxis Review: A)GI: [id number] B) Lines: Yes; Central Line; Indication: Frequent blood draws; Type: Internal jugular C) Urinary Catheter: Yes; Retain salomon due to: Need for accurate Intake and Output D) Antibiotic Usage: Yes; Infection present or suspected: Lung; Pneumonia E) VTE: Pharmacological prophylaxis; SQ Heparin and Mechanical prophylaxis; Sequential compression device F) Isolation: na G)Seizures: na I) Restraints: Patient assessed for need for restraints. Disposition/Family: Require ICU monitoring Primary service: NEICU Consults: None SUBJECTIVE Etelvina Alonso is a 58 y.o. female. Overnight Events: No new events noted. OBJECTIVE Vital Signs: Last Filed Vital Signs: 24 Hour Range BP: 104/58 (10/26 1199) Temp: 37.2 C (98.9 F) (10/26 1199) Pulse: 69 (10/26 1199) Respirations: 30 PER MINUTE (10/26 1199) SpO2: 100 % (10/26 1199) O2 Delivery: Endotracheal Tube (Oral) (10/26 1199) Weight: 53.7 kg (118 lb 6.2 oz) (10/25 0400) BP: (99-151)/(51-116) Temp: [36.9 C (98.5 F)-37.5 C (99.5 F)] Pulse: [63-110] Respirations: [18 PER MINUTE-34 PER MINUTE] SpO2: [97 %-100 %] O2 Delivery: Endotracheal Tube (Oral) Intensity Pain Scale (Self Report): (not recorded) Vitals: 10/20/18 1010 10/21/18 0301 10/25/18 0400 Weight: 54 kg (119 lb) 52.8 kg (116 lb 6.5 oz) 53.7 kg (118 lb 6.2 oz) Artificial airway: Endotracheal Tube Ventilator/ Respiratory Therapy: Yes: Mode: V/AC+ Set Vt (ml): [370 milliliters] Tidal Volume Spont (mL): [348 milliliters-369 milliliters] Set RR: [18 breaths/minutes] Total Respiratory Rate (Breaths/Min): [20 breaths/minutes-28 breaths/minutes] Minute Volume (L/min): [7.88 liters/minutes-10.3 liters/minutes] O2%: [40 %] PIP Actual: [27 cm H20-30 cm H20] PEEP/CPAP: [5 cm H2O] Vent weaning trial: Per protocol Lines: Central Line Drains: Salomon Catheter Intake/Output Summary: (Last 24 hours) Intake/Output Summary (Last 24 hours) at 10/25/2018 1319 Last data filed at 10/25/2018 1200 Gross per 24 hour Intake 4534.21 ml Output 1795 ml Net 2739.21 ml Stool Occurrence: 1 Physical Exam: Blood pressure 104/58, pulse 69, temperature 37.2 C (98.9 F), height 162.6 cm (64"), weight 53.7 kg (118 lb 6.2 oz), SpO2 100 %. [place] coma score: E: 4 - Opens eyes on own M: 5 - Localizes to pain V: 1 - Makes no noise Neuro: Mental Status: Alert Cranial Nerves: - Pupil exam: Size: R - 3mm, L - 4mm Reactivity: brisk - Corneal reflex: R - present L - present - Grimace/facial movement: present - Cough: present Motor: Moves all extremities spontaneously RUE: Strength: 5/5 RLE: Strength: 5/5 LUE: Strength: 5/5 LLE: Strength: 5/5 Lungs: clear to auscultation bilaterally Pulmonary: Respiratory status: Stable on mechanical ventilation Heart: S1, S2 normal Abdomen: soft, non-tender. Bowel sounds normal. No masses, no organomegaly Extremities: extremities normal, atraumatic, no cyanosis or edema Skin: Skin color, texture, turgor normal. No rashes or lesions Point of Care Testing: (Last 24 hours) Glucose: (!) 164 (10/25/18 0319) POC Glucose (Download): (!) 161 (10/25/18629) Lab Review: Pertinent labs reviewed Radiology and Other Diagnostic Procedures Review: Pertinent radiologic and diagnostic procedures reviewed. I spent 52 minutes managing the care of this patient. Ms Alonso is critically ill with encephalitis, meningitis, right temporal lobe abscess, pneumonia. Cares included: detailed neurologic and systems exam, medication review, laboratory data review and interpretation, electrolyte management, review of available imaging, DVT/PE prophylaxis review, diet review, activity review, mechanical ventilation and sedation management, and coordination of care with consulted teams Beatriz Cardoza APRN Date: 10/25/[phone] * Olvin Vargas, PHARMD - 10/24/2018 11:47 AM CDT Pharmacy Vancomycin Note Subjective: Etelvina Alonso is a 58 y.o. female being treated for cerebritis. Objective: Current Vancomycin Orders Medication Dose Route Frequency vancomycin (VANCOCIN) 1,000 mg in dextrose 5% (D5W) 250 mL IVPB ([id number]) 1 g Intravenous Q12H* vancomycin, pharmacy to manage 1 each Service Per Pharmacy Start Date of Vancomycin therapy: 10/20/2018 White Blood Cells Date/Time Value Ref Range Status 10/24/2018 0200 16.3 (H) 4.5 - 11.0 K/UL Final 10/23/2018 0325 16.9 (H) 4.5 - 11.0 K/UL Final 10/22/2018 0315 16.3 (H) 4.5 - 11.0 K/UL Final Creatinine Date/Time Value Ref Range Status 10/24/2018 0200 0.37 (L) 0.4 - 1.00 MG/DL Final 10/23/2018 0325 0.33 (L) 0.4 - 1.00 MG/DL Final 10/22/2018 0315 0.47 0.4 - 1.00 MG/DL Final Blood Urea Nitrogen Date/Time Value Ref Range Status 10/24/2018 0200 8 7 - 25 MG/DL Final Estimated CrCl: 74ml/min Intake/Output Summary (Last 24 hours) at 10/24/2018 1147 Last data filed at 10/24/2018 1100 Gross per 24 hour Intake 4213.04 ml Output 3965 ml Net 248.04 ml Actual Weight: 54.1 kg (119 lb 4.3 oz) Dosing BW: 54.1 kg Drug Levels: Vancomycin Trough Date/Time Value Ref Range Status 10/24/2018 0956 11.8 10.0 - 20.0 MCG/ML Final Assessment: Target levels for this patient: trough 10-15 mcg/mL. Evaluation of level(s): This trough of 11.8 was drawn prior to 5th dose 1gm IV q12h and is within goal 10-15 Plan: 1. Continue vancomycin 1gm IV q12h 2. Next scheduled level(s): no repeat level ordered 3. Pharmacy will continue to monitor and adjust therapy as needed. Olvin Vargas, PHARMD 10/24/2018 * Louise Hennessy, PT - 10/24/2018 9:00 AM CDT PHYSICAL THERAPY NOTE Physical Therapy continues to follow this patient. Pt currently intubates, sedated, and not following commands. Moving spontaneously only. Not able to participate in skilled PT intervention at this time. Will continue to monitor and evaluate/tx when medically appropriate and able to participate in meaningful therapy. Therapist: Louise Hennessy, PT Date: 10/24/2018 * Benny Sepulveda MD - 10/24/2018 7:18 AM CDT Infectious Disease Progress Note Name: Etelvina Alonso Today's Date: 10/24/2018 Admission Date: 10/19/2018 Consulted for Cerebritis suspected Type of consult: Co-management w/signed orders Assessment: Strep pneumo bacteremia Bilateral LE wounds due to CABG vein harvest, both tracking deep, L with purulent drainage Pneumocephalus with surrounding edema on CTA head 10/19/18 at OSH, cerebritis, possible developing abscess in basal right temporal lobe on MRI head 10/20/18 Influenza A with possible HCAP Acute hypoxic/hypercarbic respiratory failure -Past concern for biliateral LE wound infection as below -10/16 presented to [facility] with a few days of fever, cough -10/16/18: BC x 2 Strep Pneumo R- Clindamycin and erythromcyin S: ceftriaxone ( MARCY 0.094), PCN (MARCY 0.064), levo, TMP/S, vanc. Rapid Flu Ag negative. MRSA nasal screen negative. 10/17/18: Sputum culture: Yeast and normal chelsey -Rapid mental status deterioration, intubated -CTA head 10/19/18 at OSH, small area of intraparenchymal air above the mastoid air cells and some edema around that area, with concern for possible infection. Pt was transferred to for further management -10/19: CXR patchy mixed alveolar and interstitial opacities -10/20: Tracheal aspirate: < 10 PMN, < 10 squam, no orgs. Moderate growth no significant chelsey -10/20: LLE swab: Pseudomonas aeruginosa (R - meropenem, ceftazidime, pip/tazo; S - cefepime, tobramycin, gentamicin) -10/20: MRI head w/wo: Ovoid focus of diffusion restriction and partial rim enhancement in the basal right temporal lobe overlying the tegmen suggestive of focal cerebritis and developing abscess. Dependent diffusion restricting material within the lateral ventricles suspicious for ventriculitis. Thin complex left posterolateral convexity subdural fluid collection with diffusion restriction suggestive of thin subdural empyema. -10/23: JYOTSNA: There is a small echogenic mass on the coaptation line of the aortic valve. Appears to likely be associated with the left coronary cusp. A vegetation cannot be ruled out. 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 No stenosis. No regurgitation. -10/23: CSF - WBCs 23 (86% lymphocytes, 9% mono/histocytes, 3% neutrophils), RBCs 1, glucose 70, protein 70 Echogenic mass seen on AV - 10/23/18 JYOTSNA: There is a small echogenic mass on the coaptation line of the aortic valve. Appears to likely be associated with the left coronary cusp. A vegetation cannot be ruled out. 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 No stenosis. No regurgitation. Concern for bilateral LE wound infection, [facility] Bilateral vein harvest sites on lower extremities from CABG in [facility], 07/2018 Multiple cultures in [facility]. 09/07/18- Culture from R leg incision - Staph aureus MSSA, enterobacter cloace. 09/19/18 L leg pseudomonas R-Aztreonam Throat August and early September 2018 patient received courses of cefdinir, clindamycin, doxycycline, and trimethoprim/sulfa of unclear duration. CAD s/p CABG in 07/2018 Possible sternal instability -On admission to possible sternal instability noted, not mentioned on imaging reports at or OSH -TTE 10/20/18: LVEF 35-40%, Mid To Distal Anteroapical Severe Hypokinesis To Akinesis, anterior mitral valve prolapse, moderate posterior lateral jet MV regurg HTN Depression Possible overdose prior to 10/16 admission -gabapentin, APAP/caffeine/butalbital H/o previous LE rash that improved after CABG Recommendations: -Will continue cefepime given her LLE wound growing Pseudomonas that shows resistance to meropenem. DEPUTY COURT infection likely S pneumo, which is well covered by the cefepime and also has good DEPUTY COURT penetration. Will tentatively plan for 2 weeks of cefepime to treat both the LE wound infections and Strep pneumo bacteremia and suspected DEPUTY COURT abscess. Tentative last day of cefepime would be -After cefepime she could be transitioned to ceftriaxone 2 g IV BID for meningitis, possible endocarditis and abscess. This would continue until at least 11/12 depending on the evolution of her brain MRI/possible abscess. -Will discontinue vancomycin (ordered) -Discussed with micro regarding susceptibility testing on the Pseudomonas with ceftolozane/tazobactam and ceftazidime/avibactam -Note plan for f/u MRI -Continue oseltamivir for influenza A x at least 5 days (10/25), might be reasonable to consider x 10 days given severity of overall illness (10/30) -Continue fluconazole for thrush for now, may be able to stop in the coming days -Monitor for abx side effects Shan Walker DO Infectious Diseases Fellow Pager # [phone] Discussed with attending on service, Dr. Sepulveda I have seen, personally evaluated, and discussed the patient's care with Dr. Walker, Infectious Diseases Fellow. I agree with the subjective notations, objective findings and agree with the plan of care as documented in this note with edits made by me as necessary. Benny Sepulveda MD Automation Engineering Technician Division of Infectious Diseases Interval History Etelvina Alonso is a 58 y.o. female with a PMH significant for CABG (07/2018) who presented to [facility] in [facility] on 10/16/18 after noting worsening cough and sternal pain from recent sternotomy and non-healing LE graft sites. Transferred to [facility] on 10/19/18 for right temporal lobe intraparenchymal air and edema seen on CTA. Seen this AM intubated and sedated. Underwent LP yesterday. JYOTSNA also showed echogenic mass on the AV. Afebrile overnight (Tmax 100.2) WBC 16.3 Cr 0.37 I/O: 3587/3705 (-117) Unable to complete ROS due to pt mental status Antimicrobial Start date End date Cefepime 10/16/18-10/18/18, 10/23 active Ceftriaxone 10/18/18 10/20/18 Cefedinir 09/23/18 PRODUCTION CONTROL TECHNOLOGIST, uncertain timeframe Doxycycline 100 mg PO BID 09/06/18 PRODUCTION CONTROL TECHNOLOGIST, uncertain timeframe [id number] mg PO BID 08/23/18 PRODUCTION CONTROL TECHNOLOGIST, uncertain timeframe Fluconazole 150 mg PO QD 08/17/18 PRODUCTION CONTROL TECHNOLOGIST, uncertain timeframe Vancomycin 10/20/1810/24 Ampicillin 10/20/18 10/20/18 Fluconazole 10/20/18 active Oseltamivir 10/21/18 active Meropenem 10/20/1810/23 Bactrim 08/17/18 PRODUCTION CONTROL TECHNOLOGIST, uncertain timeframe Estimated Creatinine Clearance: 73.9 mL/min (A) (based on SCr of 0.37 mg/dL (L)) . Cardenas Results 10/23 CSF GS/cx: rare neutrophils, no organisms seen, NGTD; WBCs 23 (86% lymphocytes, 9% mono/histocytes, 3% neutrophils), RBCs 1, glucose 70, protein 70 10/22 Blood cx: NGTD 10/20 LLE wound swab: Pseudomonas aeruginosa (R - meropenem, ceftazidime, pip/tazo ; S - cefepime, tobramycin, gentamicin) 10/20 Tracheal aspirate: moderate growth no significant chelsey 10/20 Respiratory PCR panel: (+) influenza A 10/20 Blood cx: NGTD Prior cultures 10/16/18 Blood cx (from [address]): Strep Pneumo R- Clindamycin and erythromcyin Susceptible: ceftriaxone-dilut method 0.094, levofloxacin, penicillin e-dilut method 0.064, trimethoprim, and vancomycin 09/19/18 L leg: pseudomonas R-Aztreonam 09/07/18 Culture from R leg incision: Staph aureus MSSA, Enterobacter cloace 08/13/18 Sputum cx: Loretta glabrata and dublinesis Medications Scheduled Meds: amiodarone (CORDARONE) tablet 200 mg 200 mg Per OG Tube QDAY aspirin chewable tablet 81 mg 81 mg Per OG Tube QDAY atorvastatin (LIPITOR) tablet 20 mg 20 mg Per OG Tube QHS budesonide respule (PULMICORT) nebulizer solution 1 mg 1 mg Inhalation BID cefepime (MAXIPIME) 2 g in sodium chloride 0.9% (NS) 100 mL IVPB (MB+) 2 g Intravenous Q8H* chlorhexidine gluconate (PERIDEX) 0.12 % solution 15 mL 15 mL Swish & Spit BID collagenase (SANTYL) topical ointment Topical BID docusate (COLACE) oral solution 100 mg 100 mg Per OG Tube BID fluconazole (DIFLUCAN) 200 mg/NS 100 mL IVPB 200 mg Intravenous Q24H* heparin (porcine) PF syringe 5,000 Units 5,000 Units Subcutaneous Q8H levETIRAcetam (KEPPRA) tablet 500 mg 500 mg Oral BID metoprolol tartrate (LOPRESSOR) tablet 12.5 mg 12.5 mg Per OG Tube BID milk of magnesia (CONC) oral suspension 10 mL 10 mL Per OG Tube QDAY nicotine (NICODERM CQ STEP 1) 21 mg/day patch 1 patch 1 patch Transdermal QDAY( 21) oseltamivir (TAMIFLU) oral suspension 75 mg 75 mg Per NG tube BID pantoprazole(#) (PROTONIX) suspension 40 mg 40 mg Per NG tube QDAY(21) potassium chloride oral solution 20 mEq 20 mEq Per OG Tube QDAY senna/docusate (SENOKOT-S) solution 10 mL 10 mL Per OG Tube BID sertraline (ZOLOFT) tablet 50 mg 50 mg SEE ADMIN INSTRUCTIONS QHS vancomycin (VANCOCIN) 1,000 mg in dextrose 5% (D5W) 250 mL IVPB ([id number]) 1 g Intravenous Q12H* Continuous Infusions: propofol (DIPRIVAN) 10 mg/mL IV infusion 25 mcg/kg/min (10/23/18 1830) sodium chloride 0.9 % infusion 75 mL/hr at 10/24/18 0502 PRN and Respiratory Meds:acetaminophen Q6H PRN, calcium gluconate IV PRN (Heating Operators Engineer from Rx) AND Ionized Calcium PRN AND Notify Physician Ongoing, fentaNYL citrate PF Q2H PRN, ipratropium/albuterol Q4H PRN, magnesium sulfate PRN AND Magnesium PRN AND Notify Physician Ongoing, oxyCODONE Q4H PRN, pancrelipase 20,000 Units/ sodium bicarbonate 650 mg(#) PRN (Heating Operators Engineer from Rx), potassium chloride SR PRN OR potassium chloride PRN, [DISCONTINUED] vancomycin IVPB Q8H* AND vancomycin, pharmacy to manage Per Pharmacy Physical Examination Vital Signs: Last Vital Signs: 24 Hour Range BP: 133/82 (10/24 699) Temp: 37 C (98.6 F) (10/24 0400) Pulse: 103 (10/24 0600) Respirations: 22 PER MINUTE (10/24 699) SpO2: 100 % (10/24 699) O2 Delivery: Endotracheal Tube (Oral) (10/24 699) SpO2 Pulse: 103 (03/13 0700) Height: 163 cm (64.17") (10/23 1551) BP: (108-148)/(60-117) Temp: [36.9 C (98.5 F)-37.9 C (100.2 F)] Pulse: [84-111] Respirations: [0 PER MINUTE-35 PER MINUTE] SpO2: [98 %-100 %] O2 Delivery: Endotracheal Tube (Oral) General appearance: Intubated H&N: mucus membranes moist; ET tube in place Lungs: rales in apices on anterior auscultation while on MV Heart: Tachycardic; no murmurs appreciated Abdomen: soft, non-tender, non-distended, normoactive bowel sounds, Ext: ulcerations on medial aspect of R and L extremities from prior vein grafting with no purulent drainage noted Skin: no rash Msk: no joint swelling or redness Psych: unable to assess Lines/drains/tubes: CVC in R IJ; ET tube; Salomon; NG tube Laboratory Hematology Recent Labs 10/22/18 0315 10/23/18 0325 10/24/18 0200 WBC 16.3* 16.9* 16.3* HGB 9.3* 8.2* 8.9* HCT 28.2* 25.2* 27.1* PLTCT 324 312 378 Chemistry Recent Labs 10/22/18 0315 10/23/18 0325 10/23/18 1317 10/24/18 0200 NA 150* 145 -- 140 K 3.6 3.4* 4.0 3.5 CL 113* 106 -- 103 CO2 33* 36* -- 34* BUN 12 10 -- 8 CR 0.47 0.33* -- 0.37* GFR >60 >60 -- >60 GLU 175* 121* -- 115* CA 8.5 8.1* -- 8.2* PO4 1.9* 1.6* -- 2.5 Microbiology, Radiology and other Diagnostics Review Microbiology reviewed. Pertinent radiology reviewed. 10/23/18 JYOTSNA 1. There is a small echogenic mass [...] with moderately reduced systolic function, EF ~ 40 -45%, poor endocardial definition 7. Normal right ventricle size and qualitative function 8. Mild LA enlargement. Lipomatous hypertrophy of the interatrial septum is present. 9. Mild plaquing in the descending and transverse thoracic aorta 10. No pericardial effusion Compared with the prior TTE study on 10-20-2018, there has been no significant interval changes. The patient is critically ill with concern for septis, meningitis, brain abscess. I spent 35 minutes personally reviewing the patient's vital signs, critical care flowsheets, labs, imaging studies, and clinical status, as well as examining the patient and providing recommendations regarding management including further diagnostic testing and antimicrobial therapy. * Pankaj Bunn MD - 10/24/2018 7:01 AM CDT Neuro Critical Care Progress Etelvina Alonso Admission Date: 10/19/2018 LOS: 5 days Full Code ASSESSMENT/PLAN Patient Active Problem List Diagnosis Date Noted Altered mental status, unspecified 10/20/2018 Pneumonia due to infectious organism 10/19/2018 Acute respiratory failure with hypoxia and hypercapnia (HCC) 10/19/2018 Etelvina Alonso is a 58 y.o. female with history of HTN, HLD, no non-healing leg wounds, CAD s/p CABG in 07/2018 who presented to an OSH on 10/16 with shortness of breath and chest pains and found to have a RUL pneumonia. She was intubated on 10/17 2/2 worsening respiratory status and AMS. On 10/19, CTA with R temporal lobe intraparenchymal air and surrounding edema. Transferred to [facility] for escalation of care. Hospital and ICU course: 10/19: [facility] Neuro: Altered mental status: encephalopathic vs sepsis; Q1 neurochecks Keppra 500 mg BID Lumbar puncture 10/24 Repeat MRI maybe on Monday PT/OT Sedation/Pain Management: D/c propofol Start on precedex PRN fentanyl, oxycodone and tylenol available - Assess for delirium daily Cardiac: HTN; HLD; CAD s/p CABG in 07/2018; Paroxysmal AF SBP goal: < 160 MAP goal > 65 PRODUCTION CONTROL TECHNOLOGIST metoprolol, amiodarone - PRODUCTION CONTROL TECHNOLOGIST lisinopril on hold PRODUCTION CONTROL TECHNOLOGIST atrovastatin and ASA - PRODUCTION CONTROL TECHNOLOGIST plavix on hold Echo today: 35-40%, mitral valve borderline prolapse and regurg no vegetations JYOTSNA: There is a small echogenic mass on the coaptation line of the aortic valve. Appears to likely be associated with the left coronary cusp. A vegetation Respiratory: RUL Pneumonia Date of Intubation: 10/17 Reason: Airway protection V/AC: - CXR: Increased lung volumes with persistent patchy mixed alveolar and interstitial opacities, which may represent pneumonia and/or edema. PRODUCTION CONTROL TECHNOLOGIST budesonide resumed Influenza virus positive Talk to CT about CT chest external - PaO2 goal >100, Spo2 goal >95%, PCO2 goal 35-40 torr, chest physiotherapy, bronchotherapy, PD& V q 6 hrs GI: Place Corpak and place tube feeds Feeding: NPO, feeds were held overnight Bowel regimen, ensure daily BM Heme: Trend daily CBC SQ Heparin ASA Assess for coagulopathy, maintain platelets above 100k, INR <1.5 ID: Leukocytosis (mild); PNA; + Step pneumo bacteremia; Non-healing wounds on frequent Abx Afebrile ID consult appreciate recs Trend daily CBC Continue cefepime and vanc Tamaful Aim for normothermia, Temp <38.3 celsius, normothermia protocol if febrile Renal: Trend daily BMP Resolved MARGO from admit at OSH with Cr 1.10 10/16 Intake/Output Summary (Last 24 hours) at 10/24/2018 0701 Last data filed at 10/24/2018 0600 Gross per 24 hour Intake 3504.02 ml Output 3455 ml Net 49.02 ml Aim for normovolemia Endocrine: Serum glucose 121 - Trend on daily BMP - Blood glucose goal 100-180mg/dl FEN: IVF: 75 ml/hr NS 3/8 K 3.2 Mg 1.9 Phos 2.8 iCal 1.[address] Magnesium goal >2.0, i-Earl goal > 1.0, Potassium goal >4.0 mEq/L Prophylaxis Review: A)GI: [id number] B) Lines: Yes; Central Line; Indication: Frequent blood draws; Type: Internal jugular C) Urinary Catheter: Yes; Retain salomon due to: Need for accurate Intake and Output D) Antibiotic Usage: Yes; Infection present or suspected: Lung; Pneumonia E) VTE: Pharmacological prophylaxis; SQ Heparin and Mechanical prophylaxis; Sequential compression device F) Isolation: na G)Seizures: na I) Restraints: Patient assessed for need for restraints. Disposition/Family: Require ICU monitoring Primary service: NEICU Consults: None SUBJECTIVE No acute overnight events. Patient remains intubated on sedation, not following commands. Past Medical History: Diagnosis Date Arthritis Asthma CAD (coronary artery disease) COPD (chronic obstructive pulmonary disease) (HCC) Depression Disruption or dehiscence of closure of sternum or sternotomy Edentulous 2016 Poor dentition Endometriosis Hyperlipidemia Hypertension, essential Non-healing wound of lower extremity Paroxysmal atrial fibrillation (HCC) Pneumothorax tripped over a [employer] toy, had a pneumothorax, had lung surgery in [facility] [place] Restless leg syndrome Past Surgical History: Procedure Laterality Date HX CORONARY ARTERY BYPASS GRAFT HYSTERECTOMY OOPHORECTOMY ORTHOPEDIC SURGERY ligament repair in december 2017 VASCULAR SURGERY Family History Problem Relation Age of Onset Psoriasis Sister Heart Attack Sister maker 95% blocked s/p stenting Diabetes Sister Heart Disease Brother [place] in s, with several stents Social History Social History Narrative Has 2 children and 2 grandchildren Son lives in [place] She is , to [place], for 30 years 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 Allergies: Patient has no known allergies. Medications Prior to Admission Medication Sig amiodarone (CORDARONE) 200 mg tablet Take 200 mg by mouth daily. Take with food. aspirin 81 mg chewable tablet Chew 81 mg by mouth daily. Take with food. atorvastatin (LIPITOR) 20 mg tablet Take 20 mg by mouth at bedtime daily. budesonide respule (PULMICORT) 0.5 mg/2 mL nebulizer solution Inhale 1 mg solution by nebulizer as directed twice daily. clopiDOGrel (PLAVIX) 75 mg tablet Take 75 mg by mouth daily. furosemide (LASIX) 20 mg tablet Take 20 mg by mouth every morning. HYDROcodone/acetaminophen (NORCO) 5/325 mg tablet Take 1 tablet by mouth every 6 hours as needed for Pain ipratropium/albuterol (COMBIVENT RESPIMAT) 20-100 mcg/actuation mist inhaler Inhale 1 puff by mouth into the lungs every 4 hours as needed. lisinopril (PRINIVIL; ZESTRIL) 5 mg tablet Take 5 mg by mouth daily. melatonin 3 mg tab Take 5 mg by mouth at bedtime daily. metoprolol XL (TOPROL XL) 25 mg extended release tablet Take 25 mg by mouth daily. nicotine (NICODERM CQ STEP 1) 21 mg/day patch Apply 1 patch to top of skin as directed every 24 hours. Rotate patch location. oxyCODONE/acetaminophen (PERCOCET; ENDOCET; ROXICET) 5/325 mg tablet Take 1 tablet by mouth every 6 hours as needed for Pain polyethylene glycol 3350 (MIRALAX) 17 g packet Take 17 g by mouth twice daily. potassium chloride SR (K-DUR) 20 mEq tablet Take 20 mEq by mouth daily. Take with a meal and a full glass of water. sertraline (ZOLOFT) 50 mg tablet Take 50 mg by mouth at bedtime daily. Review of Systems: Review of systems not obtained from patient due to patient factors. OBJECTIVE Vital Signs: Last Filed Vital Signs: 24 Hour Range BP: 131/75 (10/24 599) Temp: 37 C (98.6 F) (10/240) Pulse: 106 (10/24 620) Respirations: 30 PER MINUTE (10/24 620) SpO2: 99 % (10/24 620) O2 Delivery: Endotracheal Tube (Oral) (10/24 599) Height: 163 cm (64.17") (10/23 1551) Weight: 54.1 kg (119 lb 4.3 oz) (10/23 1551) BP: (108-148)/(60-117) Temp: [36.9 C (98.5 F)-37.9 C (100.2 F)] Pulse: [84-111] Respirations: [0 PER MINUTE-35 PER MINUTE] SpO2: [98 %-100 %] O2 Delivery: Endotracheal Tube (Oral) Intensity Pain Scale (Self Report): (not recorded) Vitals: 10/20/18 0400 10/20/18 1010 10/21/18 0301 Weight: 54.1 kg (119 lb 4.3 oz) 54 kg (119 lb) 52.8 kg (116 lb 6.5 oz) Artificial airway: Endotracheal Tube Ventilator/ Respiratory Therapy: Yes: Weaning readiness screen (RT Only):: Implement protocol Weaning readiness screen Met (RT Only):: Yes Mode: V/AC+ Set Vt (ml): [370 milliliters] Tidal Volume Spont (mL): [198 milliliters-381 milliliters] Set RR: [18 breaths/minutes] Total Respiratory Rate (Breaths/Min): [22 breaths/minutes-39 breaths/minutes] Minute Volume (L/min): [8.54 liters/minutes-9.94 liters/minutes] O2%: [40 %] PIP Actual: [11 cm H20-28 cm H20] PEEP/CPAP: [5 cm H2O] PSupport: [5 cm H20] Vent weaning trial: Per protocol Lines: Central Line Drains: Salomon Catheter; Oralgastric tube Intake/Output Summary: (Last 24 hours) Intake/Output Summary (Last 24 hours) at 10/24/2018 0701 Last data filed at 10/24/2018 0600 Gross per 24 hour Intake 3504.02 ml Output 3455 ml Net 49.02 ml Stool Occurrence: 1 Physical Exam: Blood pressure 131/75, pulse 106, temperature 37 C (98.6 F), height 162.6 cm (64"), weight 52.8 kg (116 lb 6.5 oz), SpO2 99 %. [place] coma score: 7+T E: 2 - Opens eyes with pain M: 4 - Moves part of body but does not remove noxious stimulus V: 1 - Makes no noise FOUR score: E: 1 M: 3 BR: 4 Resp: 1 Neuro: Mental Status: Obtunded, not following commands.Intubated Cranial Nerves: - Pupil exam: Size: Right 3 Left 4 Reactivity: Brisk BL - EOM: Intact - Corneal reflex: R - present L - present - Grimace/facial movement: present - Cough: present - Gag reflex: present Motor: Moves spontaneously x4 but not to command Sensory: appears intact Coordination: Deferred DTRs: 2/4 Gait: Deferred Lungs: clear in BL uppers, fine crackles in Bl bases Pulmonary: Mechanical ventilation Heart: regular rate and rhythm, S1, S2 normal, no murmur, click, rub or gallop Abdomen: soft, non-tender. Bowel sounds normal. No masses, no organomegaly Extremities: extremities normal, atraumatic, no cyanosis. Mild 1+, non-pitting dependent eyelid/facial edema, 1-2+ dependent edema in hands and feet. Skin: Skin color, texture, turgor normal. No rashes. Non healing leg wounds. Point of Care Testing: (Last 24 hours): Glucose: (!) 115 (10/24/18 0200) Lab Review: Pertinent labs reviewed Radiology and Other Diagnostic Procedures Review: Pertinent radiologic and diagnostic procedures reviewed. Pankaj Bunn MD Date: 10/24/[phone] Associated attestation - Farhad Perez MD - 10/25/2018 12:26 AM CDT N:Meningits Wbc 23, lymphocytic, obtained after antibiotics had been used for an extended duration MRI without discrete enough abscess collection for surgical drainage. Small encephalocoele may be revisited after clinical improvement. Will repeat MRI at one week on 10/26 to assist with future planning if clinically indicated Previous leg wounds from vein harvest site and previous pneumonia and previous s pneumoniae bacteremia Improving clinically. She now has eye opening and moving all extremities - somewhat without directed purpose. Not quite following commands. Continue seizure prophylaxis CV: flail sternum Recent emergent CABG at the [facility] in [facility]. 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 Afterward would sleep in a chair, SOB when flat. Would ambulate around the apartment, but not outside. Would "do dishes" and maribel grandchildren. - sounds like some residual dyspea. She has been hospitalized frequently for dyspnea dn pneumonia since the surgery and her can not recall the separate admissions Continue amiodarone, asa, atorvastatin. Will try to get outside records from her surgery to determine if she still requires plavix - this has been held by me this admission since her bypass On home lasix 20 EF 35-40% Resp: failure to wean Her mental status has improved to the point today that we may consider weaning from the ventilator During pressure support trials becomes tachypneic RR>40 immediately Flail sternum appears to be a strong factor. Will consult cts for possible sternal fixation for flail sternum Previous pneumonia Currently with minimal secretions, good oxygenation Heavy smoker - has been smoking 1ppd since surgery COPD I discussed trach with her and he is amenable to this after we investigate sternal fixation- he will be travelling to [facility] tomorrow but will return the and will be available by phone. She has been intubated 1 week Renal:positive volume status in the setting of infection Repeat cxr in am. Metabolic alkalosis HCO3=34 is not well explained - I was suspecting that it was contraction alkalosis. With fluid replacement her hypernatremia improved. Her creatinine has been stable. She may warrant diuresis in the future actually and I may use acetazolamide to help effect this. D/c IVF GI: continue tube feeds may have npo if she will go for possible surgery. ID: meningitis Previous s. 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 Central line in place. As she has been culture negative on her blood (10/20 and 10/22) will be able to place PICC for custodial abx. Continue meropenem and vancomycin Fluconazole for thrush Oseltamivir for + influenza Persistent leukocytosis, low grade fever, but neurologic improvement. 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 y.o. female admitted 10/19/2018 to the NEICU critically ill with meningitis, encephalopathy, subdural empyema, respiratory failure, flail sternum, leg wound infection, recent bacteremia, influenza pneumonia, thrush and is receiving critical care services for the treatment of this primary diagnosis and the prevention and management of secondary injuries. I have reviewed the events, seen, personally examined, fully evaluated, and discussed this patient with NeuroICU team during the team rounds. I agree with the objective findings and agree with the plan of care as documented by the resident with the exceptions noted. This patient exhibits injury of at least one organ system and there is high probability of imminent or life-threatening deterioration in patient's condition. As such, there is a need for continued medical attention including frequent neurological examination, frequent vital signs, and the cares appropriate for an ICU. I spent 85 minutes providing and personally directing neurological care services. Family and patient were counseled about the diagnosis, treatment plan , and prognosis. Farhad Perez MD Date: 10/25/2018 * Marina Gudino APRN - 10/23/2018 2:31 PM CDT Brief neurosurgery note: Case reviewed with Dr. Sanchez this AM, at this time we continue to support aggressive medical management. We remain available if her conditions changes and our services are required. Discussed with the Neuro ICU team, and they will re-engage as needed. We will sign off at this time. Marina Gudino APRN Neurosurgery Call Pager [phone] * Juvenal Gottlieb MD - 10/23/2018 7:24 AM CDT CLEMENTINE/HNS PROGRESS NOTE Today's Date: 10/23/2018 Admission Date: 10/19/2018 LOS: 4 days Subjective No acute events overnight. Patient resting comfortably in bed. Remains intubated and sedated. Objective Vital Signs: Last Filed Vital Signs: 24 Hour Range BP: 125/72 (10/23 699) Temp: 37.4 C (99.3 F) (10/23 0400) Pulse: 107 (10/23 699) Respirations: 22 PER MINUTE (10/23 699) SpO2: 98 % (10/23 699) O2 Delivery: Endotracheal Tube (Oral) (10/23 699) SpO2 Pulse: 107 (03/12 0700) BP: (105-143)/(54-82) Temp: [37 C (98.6 F)-37.8 C (100.1 F)] Pulse: [80-121] Respirations: [11 PER MINUTE-47 PER MINUTE] SpO2: [97 %-100 %] O2 Delivery: Endotracheal Tube (Oral) Vitals: 10/20/18 0400 10/20/18 1010 10/21/18 0301 Weight: 54.1 kg (119 lb 4.3 oz) 54 kg (119 lb) 52.8 kg (116 lb 6.5 oz) Intake/Output Summary: (Last 24 hours) Intake/Output Summary (Last 24 hours) at 10/23/2018 0724 Last data filed at 10/23/2018 0700 Gross per 24 hour Intake 4665.6 ml Output 2275 ml Net 2390.6 ml Stool Occurrence: 1 Physical Exam Intubated and sedated NC/AT PERRL Face symmetric Respirations regular and unlabored on ventilator Laboratory: Pertinent labs reviewed Radiology/Imaging: Pertinent radiology reviewed. Mri Head Wo/w Contrast Addendum Date: 10/20/2018 Finalized by Mayank Price M.D. on 10/20/2018 4:09 PM. Dictated by Abiel Don M.D. on 10/20/2018 2:33 PM.Addendum: Dr. Don discussed these findings with Raquel Owusu APRN, by telephone 10/20/2018 4:39 PM. Approved by Abiel Don M.D. on 10/20 4:40 PM By my electronic signature, I attest that I have personally reviewed the images for this examination and formulated the interpretations and opinions expressed in this report Finalized by Mayank Price M.D. on 10/20/2018 4: 43 PM. Dictated by Abiel Don M.D. on 10/20/2018 4:39 PM. Result Date: 10/20/2018 EXAM: MRI BRAIN (SKULL BASE PROTOCOL) HISTORY: 58-year-old female, altered mental status. TECHNIQUE: Multiplanar and multisequence MR imaging of the head was performed. This was done both before and after the administration of MultiHancecontrast. COMPARISON: Same-day CT head and IACs. FINDINGS: Multiple sequences are degraded by repetitive motion artifact. The known areas of tegmen thinning and dehiscence are demonstrated on previous CT exams. There is an ovoid focus of restricted diffusion within the right temporal lobe measuring up to 1.3 cm with associated FLAIR hyperintensity (series 6, image 31 and series 18 , image 8) and partial rim enhancement. Mild surrounding FLAIR hyperintensity is noted. Small foci of increased DWI and ADC signal (T2 shine through) are seen within the right centrum semiovale (series 6, images 40 and 41) compatible with subacute to chronic lacunar infarct. No evidence of acute ischemic infarct. Additional minimal foci of FLAIR hyperintensity in the cerebral white matter, likely age-appropriate. The ventricles are normal in size. There is abnormal FLAIR hyperintensity dependently layering bilaterally within the occipital horns of the lateral ventricles with associated restricted diffusion. Redemonstration of diffuse arachnoid pits with visualization of a small right anterior middle cranial fossa/sphenoid wing encephalocele (series 12 image 34, series 14 image 21). Nearly empty sella appearance is again noted. There is a thin left posterior cerebral convexity FLAIR hyperintense fluid collection which demonstrates restricted diffusion (series 6, image 33). There is associated thin dural enhancement along the left temporal and lateral cerebral convexity. The central intracranial arterial flow voids are preserved. Dedicated skull base thin section T2 sequence is essentially nondiagnostic due to motion. Bilateral mastoid and middle ear effusions with associated enhancement. Diffuse paranasal sinus mucosal thickening and secretions with moderate air-fluid levels in the maxillary sinuses which demonstrate diffusion restriction. Dependent fluid noted within the nasopharynx and oropharynx with partially visualized endotracheal tube. Diffuse symmetric prominence and ill- defined edema within the parotid, submandibular, and sublingual glands with associated enhancement. The globes and orbits are grossly unremarkable, although , partially obscured due to motion on axial imaging. 1. Ovoid focus of diffusion restriction and partial rim enhancement in the basal right temporal lobe overlying the tegmen suggestive of focal cerebritis and developing abscess. 2. Dependent diffusion restricting material within the lateral ventricles suspicious for ventriculitis. 3. Thin complex left posterolateral convexity subdural fluid collection with diffusion restriction suggestive of thin subdural empyema. 4. Redemonstration of bilateral mastoid and middle ear effusions with associated enhancement compatible with otomastoiditis. Diffuse acute-appearing paranasal sinusitis. Areas of tegmen thinning and dehiscence are better demonstrated on comparison CTs. 5. Redemonstration of extensive arachnoid pits with interval visualization of a small right sphenoid wing encephalocele. Given partially empty sella appearance , findings may represent chronic intracranial hypertension. 6. Diffuse symmetric prominence, ill-defined edema, and enhancement of the salivary glands suggestive of sialoadenitis. By my electronic signature, I attest that I have personally reviewed the images for this examination and formulated the interpretations and opinions expressed in this report Ct Head Wo Contrast Result Date: 10/20/2018 CT HEAD WITHOUT CONTRAST HISTORY: 58 years [...] air cells. High-density structures over both globes. 1. Right inferior temporal lobe parenchymal edema [...] RAYMOND ALEJANDRO M.D. on 10/20/2018 7:[address] Int Aud Canal Wo Contrast Result Date: 10/21/2018 CT TEMPORAL BONES WITHOUT CONTRAST HISTORY: 58 years old Female, head trauma. TECHNIQUE: CT images of the temporal bones were acquired without contrast. COMPARISON: CT head from earlier the same day. FINDINGS: RIGHT External Auditory Canal: Patent. Tympanic Membrane: Intact. Mastoid Air Cells: Well- formed and near completely opacified. No bony destruction. [...] paranasal sinus mucosal thickening and air-fluid levels. 1. Extensive thinning and numerous areas of [...] AM. Dictated by RAYMOND ALEJANDRO M.D. on 2018 7:21 AM. Patient Active Problem List Diagnosis Date Noted Altered mental status, unspecified 10/20/2018 Pneumonia due to infectious organism 10/19/2018 Acute respiratory failure with hypoxia and hypercapnia (HCC) 10/19/2018 Assessment/Plan: Etelvina Alonso is a 58 y.o. female with complex medical history including CABG and nonhealing wounds on legs and recent pneumonia. She is admitted for altered mental status and was found to have pneumocephalus and cerebritis on imaging work up. There is concern for multiple skull base defects and/or skull base thinning over bilateral tegmen and right sphenoid wing. Exam does not demonstrate acute otitis or sinuitis at this time. -- Agree with ID c/s and IV antibiotics -- Plan for discussion with neurosurgery team today about timing of repeat imaging and potential for surgical intervention. ENT team will be available for surgical intervention with neurosurgery if there is need. Please page for any questions or concerns. Juvenal Gottlieb MD Otolaryngology Resident, [id number] * Pankaj Bunn MD - 10/23/2018 7:21 AM CDT Neuro Critical Care Progress Etelvina Alonso Admission Date: 10/19/2018 LOS: 4 days Full Code ASSESSMENT/PLAN Patient Active Problem List Diagnosis Date Noted Altered mental status, unspecified 10/20/2018 Pneumonia due to infectious organism 10/19/2018 Acute respiratory failure with hypoxia and hypercapnia (HCC) 10/19/2018 Etelvina Alonso is a 58 y.o. female with history of HTN, HLD, no non-healing leg wounds, CAD s/p CABG in 07/2018 who presented to an OSH on 10/16 with shortness of breath and chest pains and found to have a RUL pneumonia. She was intubated on 10/17 2/2 worsening respiratory status and AMS. On 10/19, CTA with R temporal lobe intraparenchymal air and surrounding edema. Transferred to [facility] for escalation of care. Hospital and ICU course: 10/19: [facility] Neuro: Altered mental status: encephalopathic vs sepsis; CT head 10/20: Concerning for possible cerebritis MRI Brain: Concerns for possible cerebritis of right temporal lobe and developing abscess, thin subdural empyema, mastoiditis Neurosurgery consult and ENT consult: will watch for now, continue with medical management Q1 neurochecks Keppra 500 mg BID Lumbar puncture PT/OT Sedation/Pain Management: Propofol PRN fentanyl, oxycodone and tylenol available - Assess for delirium daily Cardiac: HTN; HLD; CAD s/p CABG in 07/2018; Paroxysmal AF SBP goal: < 160 MAP goal > 65 PRODUCTION CONTROL TECHNOLOGIST metoprolol, amiodarone - PRODUCTION CONTROL TECHNOLOGIST lisinopril on hold PRODUCTION CONTROL TECHNOLOGIST atrovastatin and ASA - PRODUCTION CONTROL TECHNOLOGIST plavix on hold Echo today: 35-40%, mitral valve borderline prolapse and regurg no vegetations Plan for JYOTSNA Respiratory: RUL Pneumonia Date of Intubation: 10/17 Reason: Airway protection V/AC: - CXR: Increased lung volumes with persistent patchy mixed alveolar and interstitial opacities, which may represent pneumonia and/or edema. PRODUCTION CONTROL TECHNOLOGIST budesonide resumed Influenza virus positive Talk to CT about CT chest external - PaO2 goal >100, Spo2 goal >95%, PCO2 goal 35-40 torr, chest physiotherapy, bronchotherapy, PD& V q 6 hrs GI: Place Corpak and place tube feeds Feeding: NPO, feeds were held overnight Bowel regimen, ensure daily BM Heme: Trend daily CBC SQ Heparin ASA Assess for coagulopathy, maintain platelets above 100k, INR <1.5 ID: Leukocytosis (mild); PNA; + Step pneumo bacteremia; Non-healing wounds on frequent Abx Afebrile 10/16 - blood cultures positive for strep pneumo. Sputum + yeast Repeat gatica cultures, fungal included: Pseudomonas from lower extremity wound ID consult appreciate recs Trend daily CBC Continue spencer and vanc Tamaful Aim for normothermia, Temp <38.3 celsius, normothermia protocol if febrile Renal: Trend daily BMP Resolved MARGO from admit at OSH with Cr 1.10 10/16 Intake/Output Summary (Last 24 hours) at 10/23/2018 0721 Last data filed at 10/23/2018 0700 Gross per 24 hour Intake 4665.6 ml Output 2275 ml Net 2390.6 ml Aim for normovolemia Endocrine: Serum glucose 121 - Trend on daily BMP - Blood glucose goal 100-180mg/dl FEN: IVF: 75 ml/hr NS 10/19 K 3.2 Mg 1.9 Phos 2.8 iCal 1.[address] Magnesium goal >2.0, i-Earl goal > 1.0, Potassium goal >4.0 mEq/L Prophylaxis Review: A)GI: [id number] B) Lines: Yes; Central Line; Indication: Frequent blood draws; Type: Internal jugular C) Urinary Catheter: Yes; Retain salomon due to: Need for accurate Intake and Output D) Antibiotic Usage: Yes; Infection present or suspected: Lung; Pneumonia E) VTE: Pharmacological prophylaxis; SQ Heparin and Mechanical prophylaxis; Sequential compression device F) Isolation: na G)Seizures: na I) Restraints: Patient assessed for need for restraints. Disposition/Family: Require ICU monitoring Primary service: NEICU Consults: None SUBJECTIVE No acute overnight events. Past Medical History: Diagnosis Date Arthritis Asthma CAD (coronary artery disease) COPD (chronic obstructive pulmonary disease) (HCC) Depression Disruption or dehiscence of closure of sternum or sternotomy Edentulous 2016 Poor dentition Endometriosis Hyperlipidemia Hypertension, essential Non-healing wound of lower extremity Paroxysmal atrial fibrillation (HCC) Pneumothorax tripped over a [employer] toy, had a pneumothorax, had lung surgery in hospital at [facility] Restless leg syndrome Past Surgical History: Procedure Laterality Date HX CORONARY ARTERY BYPASS GRAFT HYSTERECTOMY OOPHORECTOMY ORTHOPEDIC SURGERY ligament repair in december 2017 VASCULAR SURGERY Family History Problem Relation Age of Onset Psoriasis Sister Heart Attack Sister maker 95% blocked s/p stenting Diabetes Sister Heart Disease Brother [place] in , with several stents Social History Social History Narrative Has 2 children and 2 grandchildren Son lives in [place] She is , to [place], for 30 years 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 Allergies: Patient has no known allergies. Medications Prior to Admission Medication Sig amiodarone (CORDARONE) 200 mg tablet Take 200 mg by mouth daily. Take with food. aspirin 81 mg chewable tablet Chew 81 mg by mouth daily. Take with food. atorvastatin (LIPITOR) 20 mg tablet Take 20 mg by mouth at bedtime daily. budesonide respule (PULMICORT) 0.5 mg/2 mL nebulizer solution Inhale 1 mg solution by nebulizer as directed twice daily. clopiDOGrel (PLAVIX) 75 mg tablet Take 75 mg by mouth daily. furosemide (LASIX) 20 mg tablet Take 20 mg by mouth every morning. HYDROcodone/acetaminophen (NORCO) 5/325 mg tablet Take 1 tablet by mouth every 6 hours as needed for Pain ipratropium/albuterol (COMBIVENT RESPIMAT) 20-100 mcg/actuation mist inhaler Inhale 1 puff by mouth into the lungs every 4 hours as needed. lisinopril (PRINIVIL; ZESTRIL) 5 mg tablet Take 5 mg by mouth daily. melatonin 3 mg tab Take 5 mg by mouth at bedtime daily. metoprolol XL (TOPROL XL) 25 mg extended release tablet Take 25 mg by mouth daily. nicotine (NICODERM CQ STEP 1) 21 mg/day patch Apply 1 patch to top of skin as directed every 24 hours. Rotate patch location. oxyCODONE/acetaminophen (PERCOCET; ENDOCET; ROXICET) 5/325 mg tablet Take 1 tablet by mouth every 6 hours as needed for Pain polyethylene glycol 3350 (MIRALAX) 17 g packet Take 17 g by mouth twice daily. potassium chloride SR (K-DUR) 20 mEq tablet Take 20 mEq by mouth daily. Take with a meal and a full glass of water. sertraline (ZOLOFT) 50 mg tablet Take 50 mg by mouth at bedtime daily. Review of Systems: Review of systems not obtained from patient due to patient factors. OBJECTIVE Vital Signs: Last Filed Vital Signs: 24 Hour Range BP: 125/72 (10/23 699) Temp: 37.4 C (99.3 F) (10/24 399) Pulse: 107 (10/23 699) Respirations: 22 PER MINUTE (10/23 699) SpO2: 98 % (10/23 699) O2 Delivery: Endotracheal Tube (Oral) (10/23 699) BP: (105-143)/(54-82) Temp: [37 C (98.6 F)-37.8 C (100.1 F)] Pulse: [80-121] Respirations: [11 PER MINUTE-47 PER MINUTE] SpO2: [97 %-100 %] O2 Delivery: Endotracheal Tube (Oral) Intensity Pain Scale (Self Report): (not recorded) Vitals: 10/20/18 0400 10/20/18 1010 10/21/18 0301 Weight: 54.1 kg (119 lb 4.3 oz) 54 kg (119 lb) 52.8 kg (116 lb 6.5 oz) Artificial airway: Endotracheal Tube Ventilator/ Respiratory Therapy: Yes: Weaning readiness screen (RT Only):: Implement protocol Weaning readiness screen Met (RT Only):: Yes Weaning Minute Volume (L/min): [8.49 L/min] Weaning Tidal Vol (mL) (Calc.): [173 mL] Weaning Respiratory Rate: [49 breaths/min] RSBI (Calculated): [283] PaO2 (Manual entry): [117 MMHG] FiO2 (Manual entry): [0.4] P/F Ratio (Calculated): [292] Mode: V/AC+ Set Vt (ml): [370 milliliters] Tidal Volume Spont (mL): [189 milliliters-385 milliliters] Set RR: [18 breaths/minutes] Total Respiratory Rate (Breaths/Min): [20 breaths/minutes-41 breaths/minutes] Minute Volume (L/min): [6.05 liters/minutes-8.23 liters/minutes] O2%: [40 %] PIP Actual: [2.5 cm H20-34 cm H20] PEEP/CPAP: [0 cm H2O-5 cm H2O] PSupport: [0 cm H20] Vent weaning trial: Per protocol Lines: Central Line Drains: Salomon Catheter; Oralgastric tube Intake/Output Summary: (Last 24 hours) Intake/Output Summary (Last 24 hours) at 10/23/2018 0721 Last data filed at 10/23/2018 0700 Gross per 24 hour Intake 4665.6 ml Output 2275 ml Net 2390.6 ml Stool Occurrence: 1 Physical Exam: Blood pressure 125/72, pulse 107, temperature 37.4 C (99.3 F), height 162.6 cm (64"), weight 52.8 kg (116 lb 6.5 oz), SpO2 98 %. [place] coma score: 7+T E: 2 - Opens eyes with pain M: 4 - Moves part of body but does not remove noxious stimulus V: 1 - Makes no noise FOUR score: E: 1 M: 3 BR: 4 Resp: 1 Neuro: Mental Status: Obtunded, not following commands.Intubated Cranial Nerves: - Pupil exam: Size: Right 3 Left 4 Reactivity: Brisk BL - EOM: Intact - Corneal reflex: R - present L - present - Grimace/facial movement: present - Cough: present - Gag reflex: present Motor: Localizes in RUE, flickers in LUE . Withdrawals in bilateral lowers to noxious stimulus Sensory: appears intact Coordination: Deferred DTRs: 2/4 Gait: Deferred Lungs: clear in BL uppers, fine crackles in Bl bases Pulmonary: Mechanical ventilation Heart: regular rate and rhythm, S1, S2 normal, no murmur, click, rub or gallop Abdomen: soft, non-tender. Bowel sounds normal. No masses, no organomegaly Extremities: extremities normal, atraumatic, no cyanosis. Mild 1+, non-pitting dependent eyelid/facial edema, 1-2+ dependent edema in hands and feet. Skin: Skin color, texture, turgor normal. No rashes. Non healing leg wounds. Point of Care Testing: (Last 24 hours): Glucose: (!) 121 (10/23/18 0325) Lab Review: Pertinent labs reviewed Radiology and Other Diagnostic Procedures Review: Pertinent radiologic and diagnostic procedures reviewed. Pankaj Bunn MD Date: 10/23/[phone] Associated attestation - Farhad Perez MD - 10/23/2018 6:46 PM CDT NEICU Attending Loan Collector Attestation Etelvina Alonso is a 58 y.o. y.o. female admitted 10/19/2018 to the NEICU critically ill with meningitis and is receiving critical care services for the treatment of this primary diagnosis and the prevention and management of secondary injuries. I have reviewed the events, seen, personally examined, fully evaluated, and discussed this patient with NeuroICU team during the team rounds. I agree with the objective findings and agree with the plan of care as documented by the resident with the exceptions noted. This patient exhibits injury of at least one organ system and there is high probability of imminent or life-threatening deterioration in patient's condition. As such, there is a need for continued medical attention including frequent neurological examination, frequent vital signs, and the cares appropriate for an ICU. I spent 55 minutes providing and personally directing neurological care services. Family and patient were counseled about the diagnosis, treatment plan , and prognosis. Farhad Perez MD Date: 10/23/2018 * Benny Sepulveda MD - 10/23/2018 6:42 AM CDT Infectious Disease Progress Note Name: Etelvina Alonso Today's Date: 10/23/2018 Admission Date: 10/19/2018 Consulted for Cerebritis suspected Type of consult: Co-management w/signed orders Assessment: Strep pneumo bacteremia Bilateral LE wounds due to CABG vein harvest, both tracking deep, L with purulent drainage Pneumocephalus with surrounding edema on CTA head 10/19/18 at OSH, cerebritis, possible developing abscess in basal right temporal lobe on MRI head 10/20/18 Influenza A with possible HCAP Acute hypoxic/hypercarbic respiratory failure -Past concern for biliateral LE wound infection as below -10/16 presented to [facility] with a few days of fever, cough -10/16/18: BC x 2 Strep Pneumo R- Clindamycin and erythromcyin S: ceftriaxone ( MARCY 0.094), PCN (MARCY 0.064), levo, TMP/S, vanc. Rapid Flu Ag negative. MRSA nasal screen negative. 10/17/18: Sputum culture: Yeast and normal chelsey -Rapid mental status deterioration, intubated -CTA head 10/19/18 at OSH, small area of intraparenchymal air above the mastoid air cells and some edema around that area, with concern for possible infection. Pt was transferred to for further management -10/19: CXR patchy mixed alveolar and interstitial opacities -10/20: Tracheal aspirate: < 10 PMN, < 10 squam, no orgs. Moderate growth no significant chelsey -10/20: LLE swab: Pseudomonas aeruginosa (R - meropenem, ceftazidime, pip/tazo; S - cefepime, tobramycin, gentamicin) -10/20: MRI head w/wo: Ovoid focus of diffusion restriction and partial rim enhancement in the basal right temporal lobe overlying the tegmen suggestive of focal cerebritis and developing abscess. Dependent diffusion restricting material within the lateral ventricles suspicious for ventriculitis. Thin complex left posterolateral convexity subdural fluid collection with diffusion restriction suggestive of thin subdural empyema. Concern for bilateral LE wound infection, [facility] Bilateral vein harvest sites on lower extremities from CABG in [facility], 07/2018 Multiple cultures in [facility]. 09/07/18- Culture from R leg incision - Staph aureus MSSA, enterobacter cloace. 09/19/18 L leg pseudomonas R-Aztreonam, sensitive Throat August and early September 2018 patient received courses of cefdinir, clindamycin, doxycycline, and trimethoprim/sulfa of unclear duration. CAD s/p CABG in 07/2018 Possible sternal instability -On admission to possible sternal instability noted, not mentioned on imaging reports at or OSH -TTE 10/20/18: LVEF 35-40%, Mid To Distal Anteroapical Severe Hypokinesis To Akinesis, anterior mitral valve prolapse, moderate posterior lateral jet MV regurg HTN Depression Possible overdose prior to 10/16 admission -gabapentin, APAP/caffeine/butalbital H/o previous LE rash that improved after CABG Recommendations: -Will change meropenem to cefepime given her LLE wound growing Pseudomonas that shows resistance to meropenem -Keep vancomycin trough at 10-15 - > This is targeting LE infections, not the DEPUTY COURT infection. DEPUTY [address] infection likely S pneumo which is well covered by the cefepime -Will discuss with micro regarding susceptibility testing on the Pseudomonas for additional agents. -Will follow JYOTSNA results -Note plan for f/u MRI -Continue oseltamivir for influenza A x at least 5 days, might be reasonable to consider x 10 days given severity of overall illness -Continue fluconazole for thrush while intubated -Monitor for abx side effects Shan Walker DO Infectious Diseases Fellow Pager # [phone] Discussed with attending on service, Dr. Sepulveda I have seen, personally evaluated, and discussed the patient's care with Dr. Walker, Infectious Diseases Fellow. I agree with the subjective notations, objective findings and agree with the plan of care as documented in this note with edits made by me as necessary. Benny Sepulveda MD Automation Engineering Technician Division of Infectious Diseases Interval History Etelvina Alonso is a 58 y.o. female with a PMH significant for CABG (07/2018) who presented to [facility] in [facility] on 10/16/18 after noting worsening cough and sternal pain from recent sternotomy and non-healing LE graft sites. Transferred to [facility] on 10/19/18 for right temporal lobe intraparenchymal air and edema seen on CTA. Seen this AM intubated and sedated. Leukocytosis overall unchanged. Afebrile overnight (Tmax 100.1) WBC 16.9 Cr 0.3 I/O: 4665/2275 (+2390) Unable to complete ROS due to pt mental status Antimicrobial Start date End date Cefepime 10/16/18-10/18/18, 10/23 active Ceftriaxone 10/18/18 10/20/18 Cefedinir 09/23/18 PRODUCTION CONTROL TECHNOLOGIST, uncertain timeframe Doxycycline 100 mg PO BID 09/06/18 PRODUCTION CONTROL TECHNOLOGIST, uncertain timeframe [id number] mg PO BID 08/23/18 PRODUCTION CONTROL TECHNOLOGIST, uncertain timeframe Fluconazole 150 mg PO QD 08/17/18 PRODUCTION CONTROL TECHNOLOGIST, uncertain timeframe Vancomycin 10/20/18 active Ampicillin 10/20/18 10/20/18 Fluconazole 10/20/18 active Oseltamivir 10/21/18 active Meropenem 10/20/1810/23 Bactrim 08/17/18 PRODUCTION CONTROL TECHNOLOGIST, uncertain timeframe Estimated Creatinine Clearance: 73.9 mL/min (A) (based on SCr of 0.33 mg/dL (L)) . C[facility]as Results 10/22 Blood cx: NGTD 10/20 LLE wound swab: Pseudomonas aeruginosa (R - meropenem, ceftazidime, pip/tazo ; S - cefepime, tobramycin, gentamicin) 10/20 Tracheal aspirate: moderate growth no significant chelsey 10/20 Respiratory PCR panel: (+) influenza A 10/20 Blood cx: NGTD Prior cultures 10/16/18 Blood cx (from [facility]): Strep Pneumo R- Clindamycin and erythromcyin Susceptible: ceftriaxone-dilut method 0.094, levofloxacin, penicillin e-dilut method 0.064, trimethoprim, and vancomycin 09/19/18 L leg: pseudomonas R-Aztreonam 09/07/18 Culture from R leg incision: Staph aureus MSSA, Enterobacter cloace 08/13/18 Sputum cx: Loretta glabrata and dublinesis Medications Scheduled Meds: amiodarone (CORDARONE) tablet 200 mg 200 mg Per OG Tube QDAY aspirin chewable tablet 81 mg 81 mg Per OG Tube QDAY atorvastatin (LIPITOR) tablet 20 mg 20 mg Per OG Tube QHS budesonide respule (PULMICORT) nebulizer solution 1 mg 1 mg Inhalation BID chlorhexidine gluconate (PERIDEX) 0.12 % solution 15 mL 15 mL Swish & Spit BID docusate (COLACE) oral solution 100 mg 100 mg Per OG Tube BID fluconazole (DIFLUCAN) 200 mg/NS 100 mL IVPB 200 mg Intravenous Q24H* heparin (porcine) PF syringe 5,000 Units 5,000 Units Subcutaneous Q8H levETIRAcetam (KEPPRA) tablet 500 mg 500 mg Oral BID meropenem (MERREM) 2 g in sodium chloride 0.9% (NS) 140 mL IVPB 2 g Intravenous Q8H* metoprolol tartrate (LOPRESSOR) tablet 12.5 mg 12.5 mg Per OG Tube BID milk of magnesia (CONC) oral suspension 10 mL 10 mL Per OG Tube QDAY nicotine (NICODERM CQ STEP 1) 21 mg/day patch 1 patch 1 patch Transdermal QDAY( 21) oseltamivir (TAMIFLU) oral suspension 75 mg 75 mg Per NG tube BID pantoprazole(#) (PROTONIX) suspension 40 mg 40 mg Per NG tube QDAY(21) potassium chloride oral solution 20 mEq 20 mEq Per OG Tube QDAY senna/docusate (SENOKOT-S) solution 10 mL 10 mL Per OG Tube BID sertraline (ZOLOFT) tablet 50 mg 50 mg SEE ADMIN INSTRUCTIONS QHS vancomycin (VANCOCIN) 1,000 mg in dextrose 5% (D5W) 250 mL IVPB (Muyp2Ygh) 1 g Intravenous Q12H* Continuous Infusions: propofol (DIPRIVAN) 10 mg/mL IV infusion 35 mcg/kg/min (10/23/18 0332) PRN and Respiratory Meds:acetaminophen Q6H PRN, calcium gluconate IV PRN (Heating Operators Engineer from Rx) AND Ionized Calcium PRN AND Notify Physician Ongoing, fentaNYL citrate PF Q2H PRN, ipratropium/albuterol Q4H PRN, magnesium sulfate PRN AND Magnesium PRN AND Notify Physician Ongoing, oxyCODONE Q4H PRN, pancrelipase 20,000 Units/ sodium bicarbonate 650 mg(#) PRN (Heating Operators Engineer from Rx), potassium chloride SR PRN OR potassium chloride PRN, [DISCONTINUED] vancomycin IVPB Q8H* AND vancomycin, pharmacy to manage Per Pharmacy Physical Examination Vital Signs: Last Vital Signs: 24 Hour Range BP: 135/79 (10/23 599) Temp: 37.4 C (99.3 F) (10/230) Pulse: 91 (10/23 610) Respirations: 47 PER MINUTE (10/23 610) SpO2: 97 % (10/23 610) O2 Delivery: Endotracheal Tube (Oral) (10/23 599) SpO2 Pulse: 94 (10/23 599) BP: (105-143)/(54-82) Temp: [37 C (98.6 F)-37.8 C (100.1 F)] Pulse: [80-123] Respirations: [11 PER MINUTE-48 PER MINUTE] SpO2: [97 %-100 %] O2 Delivery: Endotracheal Tube (Oral) General appearance: Intubated H&N: mucus membranes moist; ET tube in place Lungs: no wheezing, rhonchi, rales appreciated on MV Heart: Tachycardic; no murmurs appreciated Abdomen: soft, non-tender, non-distended, normoactive bowel sounds, Ext: ulcerations on medial aspect of R and L extremities from prior vein grafting with no purulent drainage noted Skin: no rash Msk: no joint swelling or redness Psych: unable to assess Lines/drains/tubes: CVC in R IJ; ET tube; [facility]ology Recent Labs 10/21/18 0310 10/22/18 0315 10/23/18 0325 WBC 18.6* 16.3* 16.9* HGB 9.4* 9.3* 8.2* HCT 27.9* 28.2* 25.2* PLTCT 331 324 312 Chemistry Recent Labs 10/20/18 1557 10/21/18 0310 10/21/18 1335 10/22/18 0315 10/23/18 0325 NA -- < > 150* 149* 150* 145 K -- -- 3.4* -- 3.6 3.4* CL -- -- 113* -- 113* 106 CO2 -- -- 30 -- 33* 36* BUN -- -- 9 -- 12 10 CR -- -- 0.48 -- 0.47 0.33* GFR -- -- >60 -- >60 >60 GLU -- -- 118* -- 175* 121* CA -- -- 8.8 -- 8.5 8.1* PO4 -- -- 2.5 -- 1.9* 1.6* ALBUMIN 2.6* -- -- -- -- -- ALKPHOS 33 -- -- -- -- -- AST 26 -- -- -- -- -- ALT 9 -- -- -- -- -- TOTBILI 0.3 -- -- -- -- -- < >=values in this interval not displayed. Microbiology, Radiology and other Diagnostics Review Microbiology reviewed. Pertinent radiology reviewed. The patient is critically ill with concern for S pneumoniae meningitis, brain abscess, cerebritits. I spent 35 minutes personally reviewing the patient's vital signs, critical care flowsheets, labs, imaging studies, and clinical status, as well as examining the patient and providing recommendations regarding management including further diagnostic testing and antimicrobial therapy. * Marci Hassan, MACIED - 10/22/2018 4:52 PM CDT Pharmacy Vancomycin Note Subjective: Etelvina Alonso is a 58 y.o. female being treated for cerebritis. Objective: Current Vancomycin Orders Medication Dose Route Frequency vancomycin (VANCOCIN) 1,000 mg in dextrose 5% (D5W) 250 mL IVPB ([id number]) 1 g Intravenous Q12H* vancomycin, pharmacy to manage 1 each Service Per Pharmacy Start Date of Vancomycin therapy: 10/20/2018 White Blood Cells Date/Time Value Ref Range Status 10/22/2018314 16.3 (H) 4.5 - 11.0 K/UL Final 10/21/2018 0310 18.6 (H) 4.5 - 11.0 K/UL Final 10/20/2018 0338 14.2 (H) 4.5 - 11.0 K/UL Final 10/19/2018 2336 13.0 (H) 4.5 - 11.0 K/UL Final Creatinine Date/Time Value Ref Range Status 10/22/2018 0315 0.47 0.4 - 1.00 MG/DL Final 10/21/2018 0310 0.48 0.4 - 1.00 MG/DL Final 10/20/2018 0338 0.50 0.4 - 1.00 MG/DL Final Blood Urea Nitrogen Date/Time Value Ref Range Status 10/22/2018 0315 12 7 - 25 MG/DL Final Estimated CrCl: ~75 mL/min Actual Weight: 52.8 kg (116 lb 6.5 oz) Drug Levels: Vancomycin Trough Date/Time Value Ref Range Status 10/21/2018 2141 9.8 (L) 10.0 - 20.0 MCG/ML Final Assessment: Target levels for this patient: trough 10-15 mcg/mL. Evaluation of level(s): 12 hr level, slightly subtherapeutic Plan: 1. Increased vancomycin dose from 750 mg q12h to 1 gm q12h. 2. Next scheduled level(s): prior to 4th or 5th dose of new regimen 3. Pharmacy will continue to monitor and adjust therapy as needed. Marci Hassan, PHARMBakari 10/22/2018 * Louise Hennessy, PT - 10/22/2018 3:15 PM CDT PHYSICAL THERAPY NOTE Discussed patient with OT who discussed with bedside RN. Pt not following commands, but moving spontaneously only. When sedation decreased pt becomes agitated and is a high risk of self-extubation. Will continue to monitor and evaluate/tx when medically appropriate and able to participate in meaningful therapy. Therapist: Louise Hennessy, PT Date: 10/22/2018 * Elenita Butler, OT - 10/22/2018 2:45 PM CDT OCCUPATIONAL THERAPY NO TREATMENT NOTE The patient was not seen due to: discussed with RN. Pt not following commands, but moving spontaneously only. When sedation decreased pt becomes agitated and is a high risk of self-extubation. Will continue to monitor and evaluate/tx when medically appropriate and able to participate in meaningful therapy. Therapist: Elenita Butler, DALILA Date: 10/22/2018 * Marleen Ponce RN - 10/22/2018 12:37 PM CDT IVT at bedside, x1 blue bottle was drawn prior to patient jerking needle from arm, labeled and sent to lab. RN notified. * Benny Sepulveda MD - 10/22/2018 8:06 AM CDT Infectious Disease Progress Note Name: Etelvina Alonso Today's Date: 10/22/2018 Admission Date: 10/19/2018 Consulted for Cerebritis suspected Type of consult: Co-management w/signed orders Assessment: Strep pneumo bacteremia Bilateral LE wounds due to CABG vein harvest, both tracking deep, L with purulent drainage Pneumocephalus with surrounding edema on CTA head 10/19/18 at OSH, cerebritis, possible developing abscess in basal right temporal lobe on MRI head 10/20/18 Influenza A with possible HCAP Acute hypoxic/hypercarbic respiratory failure -Past concern for biliateral LE wound infection as below -10/16 presented to [facility] with a few days of fever, cough -10/16/18: BC x 2 Strep Pneumo R- Clindamycin and erythromcyin S: ceftriaxone ( MARCY 0.094), PCN (MARCY 0.064), levo, TMP/S, vanc. Rapid Flu Ag negative. MRSA nasal screen negative. 10/17/18: Sputum culture: Yeast and normal chelsey -Rapid mental status deterioration, intubated -CTA head 10/19/18 at OSH, small area of intraparenchymal air above the mastoid air cells and some edema around that area, with concern for possible infection. Pt was transferred to for further management -10/19: CXR patchy mixed alveolar and interstitial opacities -10/20: Tracheal aspirate: < 10 PMN, < 10 squam, no orgs. Cx pending -10/20: LLE swab: Pseudomonas aeruginosa -10/20: MRI head w/wo: Ovoid focus of diffusion restriction and partial rim enhancement in the basal right temporal lobe overlying the tegmen suggestive of focal cerebritis and developing abscess. Dependent diffusion restricting material within the lateral ventricles suspicious for ventriculitis. Thin complex left posterolateral convexity subdural fluid collection with diffusion restriction suggestive of thin subdural empyema. Concern for bilateral LE wound infection, [facility] Bilateral vein harvest sites on lower extremities from CABG in [facility], 07/2018 Multiple cultures in [facility]. 09/07/18- Culture from R leg incision - Staph aureus MSSA, enterobacter cloace. 09/19/18 L leg pseudomonas R-Aztreonam, sensitive Throat August and early September 2018 patient received courses of cefdinir, clindamycin, doxycycline, and trimethoprim/sulfa of unclear duration. CAD s/p CABG in 07/2018 Possible sternal instability -On admission to possible sternal instability noted, not mentioned on imaging reports at or OSH -TTE 10/20/18: LVEF 35-40%, Mid To Distal Anteroapical Severe Hypokinesis To Akinesis, anterior mitral valve prolapse, moderate posterior lateral jet MV regurg HTN Depression Possible overdose prior to 10/16 admission -gabapentin, APAP/caffeine/butalbital H/o previous LE rash that improved after CABG Recommendations: -Continue meropenem and vancomycin for now. LLE wound growing Pseudomonas; MRI with possible abscess in R temporal lobe and subdural empyema. Keep vancomycin trough at 10-15 - > This is targeting LE infections, not the DEPUTY COURT infection. DE[address] COURT infection likely S pneumo which is well covered by the meropenem -Recommend she have a JYOTSNA to assess for any vegetations as well -Continue oseltamivir for influenza A x at least 5 days, might be reasonable to consider x 10 days given severity of overall illness -Continue fluconazole for thrush while intubated; discontinued nystatin while intubated -Monitor for abx side effects Discussed with attending on service, Dr. Sepulveda I have seen, personally evaluated, and discussed the patient's care with Dr. Walker, Infectious Diseases Fellow. I agree with the subjective notations, objective findings and agree with the plan of care as documented in this note with edits made by me as necessary. Benny Sepulveda MD Automation Engineering Technician Division of Infectious Diseases Interval History Etelvina Alonso is a 58 y.o. female with a PMH significant for CABG (07/2018) who presented to [facility] in [facility] on 10/16/18 after noting worsening cough and sternal pain from recent sternotomy and non-healing LE graft sites. Transferred to [facility] on 10/19/18 for right temporal lobe intraparenchymal air and edema seen on CTA. Remains intubated, sedated. Leukocytosis improved. Afebrile overnight WBC 16.3 Cr 0.47 Unable to complete ROS due to pt mental status Antimicrobial Start date End date Cefepime 300 mg PO BID 10/16/18 10/18/18 Ceftriaxone 10/18/18 10/20/18 Cefedinir 09/23/18 PRODUCTION CONTROL TECHNOLOGIST, uncertain timeframe Doxycycline 100 mg PO BID 09/06/18 PRODUCTION CONTROL TECHNOLOGIST, uncertain timeframe [id number] mg PO BID 08/23/18 PRODUCTION CONTROL TECHNOLOGIST, uncertain timeframe Fluconazole 150 mg PO QD 08/17/18 PRODUCTION CONTROL TECHNOLOGIST, uncertain timeframe Vancomycin 10/20/18 active Ampicillin 10/20/18 10/20/18 Fluconazole 10/20/18 active Oseltamivir 10/21/18 active Meropenem 10/20/18 active Bactrim 08/17/18 PRODUCTION CONTROL TECHNOLOGIST, uncertain timeframe Estimated Creatinine Clearance: 73.9 mL/min (based on SCr of 0.47 mg/dL). C[facility]as Results 10/20 LLE wound swab: Pseudomonas aeruginosa 10/20 Tracheal aspirate: in progress 10/20 Respiratory PCR panel: (+) influenza A 10/20 Blood cx: NGTD Prior cultures 10/16/18 Blood cx (from [facility]): Strep Pneumo R- Clindamycin and erythromcyin Susceptible: ceftriaxone-dilut method 0.094, levofloxacin, penicillin e-dilut method 0.064, trimethoprim, and vancomycin 09/19/18 L leg: pseudomonas R-Aztreonam 09/07/18 Culture from R leg incision: Staph aureus MSSA, Enterobacter cloace 08/13/18 Sputum cx: Loretta glabrata and dublinesis Medications Scheduled Meds: amiodarone (CORDARONE) tablet 200 mg 200 mg Per OG Tube QDAY aspirin chewable tablet 81 mg 81 mg Per OG Tube QDAY atorvastatin (LIPITOR) tablet 20 mg 20 mg Per OG Tube QHS budesonide respule (PULMICORT) nebulizer solution 1 mg 1 mg Inhalation BID chlorhexidine gluconate (PERIDEX) 0.12 % solution 15 mL 15 mL Swish & Spit BID docusate (COLACE) oral solution 100 mg 100 mg Per OG Tube BID fluconazole (DIFLUCAN) 200 mg/NS 100 mL IVPB 200 mg Intravenous Q24H* heparin (porcine) PF syringe 5,000 Units 5,000 Units Subcutaneous Q8H levETIRAcetam (KEPPRA) tablet 500 mg 500 mg Oral BID meropenem (MERREM) 2 g in sodium chloride 0.9% (NS) 140 mL IVPB 2 g Intravenous Q8H* metoprolol tartrate (LOPRESSOR) tablet 12.5 mg 12.5 mg Per OG Tube BID milk of magnesia (CONC) oral suspension 10 mL 10 mL Per OG Tube QDAY nicotine (NICODERM CQ STEP 1) 21 mg/day patch 1 patch 1 patch Transdermal QDAY( 21) nystatin (MYCOSTATIN) oral suspension 500,000 Units 500,000 Units Oral QID oseltamivir (TAMIFLU) oral suspension 75 mg 75 mg Per NG tube BID pantoprazole(#) (PROTONIX) suspension 40 mg 40 mg Per NG tube QDAY(21) potassium chloride oral solution 20 mEq 20 mEq Per OG Tube QDAY senna/docusate (SENOKOT-S) solution 10 mL 10 mL Per OG Tube BID sertraline (ZOLOFT) tablet 50 mg 50 mg SEE ADMIN INSTRUCTIONS QHS vancomycin (VANCOCIN) 1,000 mg in dextrose 5% (D5W) 250 mL IVPB ([id number]) 1 g Intravenous Q12H* Continuous Infusions: propofol (DIPRIVAN) 10 mg/mL IV infusion 35 mcg/kg/min (10/22/18 0701) sodium chloride 0.45 % infusion 50 mL/hr at 10/21/18 0611 PRN and Respiratory Meds:acetaminophen Q6H PRN, calcium gluconate IV PRN (Heating Operators Engineer from Rx) AND Ionized Calcium PRN AND Notify Physician Ongoing, fentaNYL citrate PF Q2H PRN, ipratropium/albuterol Q4H PRN, magnesium sulfate PRN AND Magnesium PRN AND Notify Physician Ongoing, oxyCODONE Q4H PRN, pancrelipase 20,000 Units/ sodium bicarbonate 650 mg(#) PRN (Heating Operators Engineer from Rx), potassium chloride SR PRN OR potassium chloride PRN, [DISCONTINUED] vancomycin IVPB Q8H* AND vancomycin, pharmacy to manage Per Pharmacy Physical Examination Vital Signs: Last Vital Signs: 24 Hour Range BP: 128/81 (10/22 699) Temp: 37.3 C (99.1 F) (10/23 799) Pulse: 123 (10/22 699) Respirations: 48 PER MINUTE (10/22 699) SpO2: 100 % (10/22 699) O2 Delivery: Endotracheal Tube (Oral) (10/22 699) SpO2 Pulse: 123 (10/22 699) BP: (89-147)/(47-83) Temp: [36.8 C (98.2 F)-37.7 C (99.8 F)] Pulse: [82-123] Respirations: [0 PER MINUTE-48 PER MINUTE] SpO2: [96 %-100 %] O2 Delivery: Endotracheal Tube (Oral) General appearance: Intubated H&N: mucus membranes moist; ET tube in place Lungs: no wheezing, rhonchi, rales appreciated on MV Heart: Tachycardic; no murmurs appreciated Abdomen: soft, non-tender, non-distended, normoactive bowel sounds, Ext: ulcerations on medial aspect of R and L extremities from prior vein grafting with no purulent drainage noted Skin: no rash Msk: no joint swelling or redness Psych: unable to assess Lines/drains/tubes: CVC in R IJ; ET tube; [facility] Hematology Recent Labs 10/19/18 2336 10/20/18 0338 10/21/18 0310 10/22/18 0315 WBC 13.0* 14.2* 18.6* 16.3* HGB 9.8* 9.4* 9.4* 9.3* HCT 29.4* 28.4* 27.9* 28.2* PLTCT 299 291 331 324 INR 1.0 -- -- -- Chemistry Recent Labs 10/19/18 2336 10/20/18 0338 10/20/18 1117 10/20/18 1557 10/21/18 0310 10/21/18 1335 10/22/18 0315 NA 144 146 -- -- 150* 149* 150* K 3.2* 3.9 4.0 -- 3.4* -- 3.6 CL 110 112* -- -- 113* -- 113* CO2 28 28 -- -- 30 -- 33* BUN 13 13 -- -- 9 -- 12 CR 0.51 0.50 -- -- 0.48 -- 0.47 GFR >60 >60 -- -- >60 -- >60 GLU 105* 142* -- -- 118* -- 175* CA 8.6 8.7 -- -- 8.8 -- 8.5 PO4 2.8 3.0 -- -- 2.5 -- 1.9* ALBUMIN 2.6* -- -- 2.6* -- -- -- ALKPHOS 30 -- -- 33 -- -- -- AST 20 -- -- 26 -- -- -- ALT 6* -- -- 9 -- -- -- TOTBILI 0.3 -- -- 0.3 -- -- -- Microbiology, Radiology and other Diagnostics Review Microbiology reviewed. Pertinent radiology reviewed. The patient is critically ill with concern for Septic shock, brain abscess. I spent 35 minutes personally reviewing the patient's vital signs, critical care flowsheets, labs, imaging studies, and clinical status, as well as examining the patient and providing recommendations regarding management including further diagnostic testing and antimicrobial therapy. * Pankaj Bunn MD - 10/22/2018 7:04 AM CDT Neuro Critical Care Progress Etelvina Alonso Admission Date: 10/19/2018 LOS: 3 days Full Code ASSESSMENT/PLAN Patient Active Problem List Diagnosis Date Noted Altered mental status, unspecified 10/20/2018 Pneumonia due to infectious organism 10/19/2018 Acute respiratory failure with hypoxia and hypercapnia (HCC) 10/19/2018 Etelvina Alonso is a 58 y.o. female with history of HTN, HLD, no non-healing leg wounds, CAD s/p CABG in 07/2018 who presented to an OSH on 10/16 with shortness of breath and chest pains and found to have a RUL pneumonia. She was intubated on 10/17 2/2 worsening respiratory status and AMS. On 10/19, CTA with R temporal lobe intraparenchymal air and surrounding edema. Transferred to [facility] for escalation of care. Hospital and ICU course: 10/19: Transferred from OSH to NEU Neuro: Altered mental status: encephalopathic vs sepsis; CT head 10/20: Concerning for possible cerebritis MRI Brain: Concerns for possible cerebritis of right temporal lobe and developing abscess, thin subdural empyema, mastoiditis Neurosurgery consult and ENT consult: will watch for now, continue with medical management Q1 neurochecks Keppra 500 mg BID PT/OT Sedation/Pain Management: Propofol PRN fentanyl, oxycodone and tylenol available - Assess for delirium daily Cardiac: HTN; HLD; CAD s/p CABG in 07/2018; Paroxysmal AF SBP goal: < 160 MAP goal > 65 PRODUCTION CONTROL TECHNOLOGIST metoprolol, amiodarone - PRODUCTION CONTROL TECHNOLOGIST lisinopril on hold PRODUCTION CONTROL TECHNOLOGIST atrovastatin and ASA - PRODUCTION CONTROL TECHNOLOGIST plavix on hold Echo today: 35-40%, mitral valve borderline prolapse and regurg no vegetations Respiratory: RUL Pneumonia Date of Intubation: 10/17 Reason: Airway protection V/AC: - CXR: Increased lung volumes with persistent patchy mixed alveolar and interstitial opacities, which may represent pneumonia and/or edema. PRODUCTION CONTROL TECHNOLOGIST budesonide resumed Influenza - PaO2 goal >100, Spo2 goal >95%, PCO2 goal 35-40 torr, chest physiotherapy, bronchotherapy, PD& V q 6 hrs GI: Place Corpak and place tube feeds Feeding: NPO Bowel regimen, ensure daily BM Heme: Trend daily CBC SQ Heparin ASA Assess for coagulopathy, maintain platelets above 100k, INR <1.5 ID: Leukocytosis (mild); PNA; + Step pneumo bacteremia; Non-healing wounds on frequent Abx 10/16 - blood cultures positive for strep pneumo. Sputum + yeast Repeat gatica cultures, fungal included: Pseudomonas from lower extremity wound ID consult appreciate recs Trend daily CBC Continue spencer and vanc Blood cultures [place] Aim for normothermia, Temp <38.3 celsius, normothermia protocol if febrile Renal: Trend daily BMP Resolved MARGO from admit at OSH with Cr 1.10 10/16 Intake/Output Summary (Last 24 hours) at 10/22/2018 0704 Last data filed at 10/22/2018 0700 Gross per 24 hour Intake 3217.99 ml Output 930 ml Net 2287.99 ml Aim for normovolemia Endocrine: Serum glucose 175 - Trend on daily BMP - Blood glucose goal 100-180mg/dl FEN: IVF: None 10/19 K 3.2 Mg 1.9 Phos 2.8 iCal 1.[address] Magnesium goal >2.0, i-Earl goal > 1.0, Potassium goal >4.0 mEq/L Prophylaxis Review: A)GI: [id number] B) Lines: Yes; Central Line; Indication: Frequent blood draws; Type: Internal jugular C) Urinary Catheter: Yes; Retain salomon due to: Need for accurate Intake and Output D) Antibiotic Usage: Yes; Infection present or suspected: Lung; Pneumonia E) VTE: Pharmacological prophylaxis; SQ Heparin and Mechanical prophylaxis; Sequential compression device F) Isolation: na G)Seizures: na I) Restraints: Patient assessed for need for restraints. Disposition/Family: Require ICU monitoring Primary service: NEICU Consults: None SUBJECTIVE No acute overnight events. Past Medical History: Diagnosis Date Arthritis Asthma CAD (coronary artery disease) COPD (chronic obstructive pulmonary disease) (HCC) Depression Disruption or dehiscence of closure of sternum or sternotomy Edentulous 2016 Poor dentition Endometriosis Hyperlipidemia Hypertension, essential Non-healing wound of lower extremity Paroxysmal atrial fibrillation (HCC) Pneumothorax tripped over a kraig toy, had a pneumothorax, had lung surgery in hospital at [facility] Restless leg syndrome Past Surgical History: Procedure Laterality Date HX CORONARY ARTERY BYPASS GRAFT HYSTERECTOMY OOPHORECTOMY ORTHOPEDIC SURGERY ligament repair in december 2017 VASCULAR SURGERY Family History Problem Relation Age of Onset Psoriasis Sister Heart Attack Sister maker 95% blocked s/p stenting Diabetes Sister Heart Disease Brother [place] in s, with several stents Social History Social History Narrative Has 2 children and 2 grandchildren Son lives in [place] She is , to [place], for 30 years 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 Allergies: Patient has no known allergies. Medications Prior to Admission Medication Sig amiodarone (CORDARONE) 200 mg tablet Take 200 mg by mouth daily. Take with food. aspirin 81 mg chewable tablet Chew 81 mg by mouth daily. Take with food. atorvastatin (LIPITOR) 20 mg tablet Take 20 mg by mouth at bedtime daily. budesonide respule (PULMICORT) 0.5 mg/2 mL nebulizer solution Inhale 1 mg solution by nebulizer as directed twice daily. clopiDOGrel (PLAVIX) 75 mg tablet Take 75 mg by mouth daily. furosemide (LASIX) 20 mg tablet Take 20 mg by mouth every morning. HYDROcodone/acetaminophen (NORCO) 5/325 mg tablet Take 1 tablet by mouth every 6 hours as needed for Pain ipratropium/albuterol (COMBIVENT RESPIMAT) 20-100 mcg/actuation mist inhaler Inhale 1 puff by mouth into the lungs every 4 hours as needed. lisinopril (PRINIVIL; ZESTRIL) 5 mg tablet Take 5 mg by mouth daily. melatonin 3 mg tab Take 5 mg by mouth at bedtime daily. metoprolol XL (TOPROL XL) 25 mg extended release tablet Take 25 mg by mouth daily. nicotine (NICODERM CQ STEP 1) 21 mg/day patch Apply 1 patch to top of skin as directed every 24 hours. Rotate patch location. oxyCODONE/acetaminophen (PERCOCET; ENDOCET; ROXICET) 5/325 mg tablet Take 1 tablet by mouth every 6 hours as needed for Pain polyethylene glycol 3350 (MIRALAX) 17 g packet Take 17 g by mouth twice daily. potassium chloride SR (K-DUR) 20 mEq tablet Take 20 mEq by mouth daily. Take with a meal and a full glass of water. sertraline (ZOLOFT) 50 mg tablet Take 50 mg by mouth at bedtime daily. Review of Systems: Review of systems not obtained from patient due to patient factors. OBJECTIVE Vital Signs: Last Filed Vital Signs: 24 Hour Range BP: 128/81 (10/22 699) Temp: 37.3 C (99.2 F) (10/23 399) Pulse: 123 (10/22 699) Respirations: 48 PER MINUTE (10/22 699) SpO2: 100 % (10/22 699) O2 Delivery: Endotracheal Tube (Oral) (10/22 699) BP: (89-147)/(47-85) Temp: [36.8 C (98.2 F)-37.7 C (99.8 F)] Pulse: [82-123] Respirations: [0 PER MINUTE-48 PER MINUTE] SpO2: [96 %-100 %] O2 Delivery: Endotracheal Tube (Oral) Intensity Pain Scale (Self Report): (not recorded) Vitals: 10/20/18 0400 10/20/18 1010 10/21/18 0301 Weight: 54.1 kg (119 lb 4.3 oz) 54 kg (119 lb) 52.8 kg (116 lb 6.5 oz) Artificial airway: Endotracheal Tube Ventilator/ Respiratory Therapy: Yes: Weaning readiness screen (RT Only):: Implement protocol Weaning readiness screen Met (RT Only):: Yes NIF: [-27 cm H2O] Weaning Minute Volume (L/min): [7.5 L/min] Weaning Tidal Vol (mL) (Calc.): [208 mL] $$ Vital Capacity (mL): [0 ml] Weaning Respiratory Rate: [36 breaths/min] RSBI (Calculated): [173] PaO2 (Manual entry): [88 MMHG] FiO2 (Manual entry): [0.4] P/F Ratio (Calculated): [220] Mode: V/AC+ Set Vt (ml): [370 milliliters] Tidal Volume Spont (mL): [211 milliliters-367 milliliters] Set RR: [18 breaths/minutes] Total Respiratory Rate (Breaths/Min): [19 breaths/minutes-34 breaths/minutes] Minute Volume (L/min): [7.05 liters/minutes-8.64 liters/minutes] O2%: [40 %] PIP Actual: [3 cm H20-25 cm H20] PEEP/CPAP: [0 cm H2O-5 cm H2O] PSupport: [0 cm H20] Spontaneous Breathing Trial MET (RT Only): No: RR > 35 breaths/minute for > 5 minutes Vent weaning trial: Per protocol Lines: Central Line Drains: Salomon Catheter; Oralgastric tube Intake/Output Summary: (Last 24 hours) Intake/Output Summary (Last 24 hours) at 10/22/2018 0704 Last data filed at 10/22/2018 0700 Gross per 24 hour Intake 3217.99 ml Output 930 ml Net 2287.99 ml Stool Occurrence: 1 Physical Exam: Blood pressure 128/81, pulse (!) 123, temperature 37.3 C (99.2 F), height 162.6 cm (64"), weight 52.8 kg (116 lb 6.5 oz), SpO2 100 %. Daily coma score: 7+T E: 2 - Opens eyes with pain M: 4 - Moves part of body but does not remove noxious stimulus V: 1 - Makes no noise FOUR score: E: 1 M: 3 BR: 4 Resp: 1 Neuro: Mental Status: Obtunded, not following commands. Cranial Nerves: - Pupil exam: Size: Right 3 Left 4 Reactivity: Brisk BL - EOM: Intact - Corneal reflex: R - present L - present - Grimace/facial movement: present - Cough: present - Gag reflex: present Motor: Moves all extremities spontaneously and away from stimulus. Attempts to kick in direction of care technician. Sensory: appears intact Coordination: Deferred DTRs: 2/4 Gait: Deferred Lungs: clear in BL uppers, fine crackles in Bl bases Pulmonary: Mechanical ventilation Heart: regular rate and rhythm, S1, S2 normal, no murmur, click, rub or gallop Abdomen: soft, non-tender. Bowel sounds normal. No masses, no organomegaly Extremities: extremities normal, atraumatic, no cyanosis. Mild 1+, non-pitting dependent eyelid/facial edema, 1-2+ dependent edema in hands and feet. Skin: Skin color, texture, turgor normal. No rashes. Non healing leg wounds. Point of Care Testing: (Last 24 hours): Glucose: (!) 175 (10/22/18 0315) Lab Review: Pertinent labs reviewed Radiology and Other Diagnostic Procedures Review: Pertinent radiologic and diagnostic procedures reviewed. Pankaj Bunn MD Date: 10/22/[phone] Associated attestation - Farhad Perez MD - 10/23/2018 12:05 AM CDT NEICU Attending Loan Collector Attestation Etelvina Alonso is a 58 y.o. y.o. female admitted 10/19/2018 to the NEICU critically ill with meningitis and is receiving critical care services for the treatment of this primary diagnosis and the prevention and management of secondary injuries. I have reviewed the events, seen, personally examined, fully evaluated, and discussed this patient with NeuroICU team during the team rounds. I agree with the objective findings and agree with the plan of care as documented by the resident with the exceptions noted. This patient exhibits injury of at least one organ system and there is high probability of imminent or life-threatening deterioration in patient's condition. As such, there is a need for continued medical attention including frequent neurological examination, frequent vital signs, and the cares appropriate for an ICU. I spent 55 minutes providing and personally directing neurological care services. Family and patient were counseled about the diagnosis, treatment plan , and prognosis. Farhad Perez MD Date: 10/23/2018 * Juvenal Gottlieb MD - 10/22/2018 7:03 AM CDT CLEMENTINE/HNS PROGRESS NOTE Today's Date: 10/22/2018 Admission Date: 10/19/2018 LOS: 3 days Subjective No acute events overnight. Patient resting comfortably in bed. Remains intubated and sedated. Objective Vital Signs: Last Filed Vital Signs: 24 Hour Range BP: 128/81 (10/22 0700) Temp: 37.3 C (99.2 F) (10/22 0400) Pulse: 123 (03/11 0700) Respirations: 48 PER MINUTE (10/22 699) SpO2: 100 % (10/22 699) O2 Delivery: Endotracheal Tube (Oral) (10/22 699) SpO2 Pulse: 123 (10/22 699) BP: (89-147)/(47-85) Temp: [36.8 C (98.2 F)-37.7 C (99.8 F)] Pulse: [82-123] Respirations: [0 PER MINUTE-48 PER MINUTE] SpO2: [96 %-100 %] O2 Delivery: Endotracheal Tube (Oral) Vitals: 10/20/18 0400 10/20/18 1010 10/21/18 0301 Weight: 54.1 kg (119 lb 4.3 oz) 54 kg (119 lb) 52.8 kg (116 lb 6.5 oz) Intake/Output Summary: (Last 24 hours) Intake/Output Summary (Last 24 hours) at 10/22/2018 0704 Last data filed at 10/22/2018 0700 Gross per 24 hour Intake 3217.99 ml Output 930 ml Net 2287.99 ml Stool Occurrence: 1 Physical Exam Intubated and sedated NC/AT PERRL Face symmetric Respirations regular and unlabored on ventilator Laboratory: Pertinent labs reviewed Radiology/Imaging: Pertinent radiology reviewed. Mri Head Wo/w Contrast Addendum Date: 10/20/2018 Finalized by Mayank Price M.D. on 10/20/2018 4:09 PM. Dictated by Abiel Don M.D. on 10/20/2018 2:33 PM.Addendum: Dr. Don discussed these findings with Raquel Owusu APRN, by telephone 10/20/2018 4:39 PM. Approved by Abiel Don M.D. on 10/20 4:40 PM By my electronic signature, I attest that I have personally reviewed the images for this examination and formulated the interpretations and opinions expressed in this report Finalized by Mayank Price M.D. on 10/20/2018 4: 43 PM. Dictated by Abiel Don M.D. on 10/20/2018 4:39 PM. Result Date: 10/20/2018 EXAM: MRI BRAIN (SKULL BASE PROTOCOL) HISTORY: 58-year-old female, altered mental status. TECHNIQUE: Multiplanar and multisequence MR imaging of the head was performed. This was done both before and after the administration of MultiHancecontrast. COMPARISON: Same-day CT head and IACs. FINDINGS: Multiple sequences are degraded by repetitive motion artifact. The known areas of tegmen thinning and dehiscence are demonstrated on previous CT exams. There is an ovoid focus of restricted diffusion within the right temporal lobe measuring up to 1.3 cm with associated FLAIR hyperintensity (series 6, image 31 and series 18 , image 8) and partial rim enhancement. Mild surrounding FLAIR hyperintensity is noted. Small foci of increased DWI and ADC signal (T2 shine through) are seen within the right centrum semiovale (series 6, images 40 and 41) compatible with subacute to chronic lacunar infarct. No evidence of acute ischemic infarct. Additional minimal foci of FLAIR hyperintensity in the cerebral white matter, likely age-appropriate. The ventricles are normal in size. There is abnormal FLAIR hyperintensity dependently layering bilaterally within the occipital horns of the lateral ventricles with associated restricted diffusion. Redemonstration of diffuse arachnoid pits with visualization of a small right anterior middle cranial fossa/sphenoid wing encephalocele (series 12 image 34, series 14 image 21). Nearly empty sella appearance is again noted. There is a thin left posterior cerebral convexity FLAIR hyperintense fluid collection which demonstrates restricted diffusion (series 6, image 33). There is associated thin dural enhancement along the left temporal and lateral cerebral convexity. The central intracranial arterial flow voids are preserved. Dedicated skull base thin section T2 sequence is essentially nondiagnostic due to motion. Bilateral mastoid and middle ear effusions with associated enhancement. Diffuse paranasal sinus mucosal thickening and secretions with moderate air-fluid levels in the maxillary sinuses which demonstrate diffusion restriction. Dependent fluid noted within the nasopharynx and oropharynx with partially visualized endotracheal tube. Diffuse symmetric prominence and ill- defined edema within the parotid, submandibular, and sublingual glands with associated enhancement. The globes and orbits are grossly unremarkable, although , partially obscured due to motion on axial imaging. 1. Ovoid focus of diffusion restriction and partial rim enhancement in the basal right temporal lobe overlying the tegmen suggestive of focal cerebritis and developing abscess. 2. Dependent diffusion restricting material within the lateral ventricles suspicious for ventriculitis. 3. Thin complex left posterolateral convexity subdural fluid collection with diffusion restriction suggestive of thin subdural empyema. 4. Redemonstration of bilateral mastoid and middle ear effusions with associated enhancement compatible with otomastoiditis. Diffuse acute-appearing paranasal sinusitis. Areas of tegmen thinning and dehiscence are better demonstrated on comparison CTs. 5. Redemonstration of extensive arachnoid pits with interval visualization of a small right sphenoid wing encephalocele. Given partially empty sella appearance , findings may represent chronic intracranial hypertension. 6. Diffuse symmetric prominence, ill-defined edema, and enhancement of the salivary glands suggestive of sialoadenitis. By my electronic signature, I attest that I have personally reviewed the images for this examination and formulated the interpretations and opinions expressed in this report Ct Head Wo Contrast Result Date: 10/20/2018 CT HEAD WITHOUT CONTRAST HISTORY: 58 years [...] air cells. High-density structures over both globes. 1. Right inferior temporal lobe parenchymal edema [...] RAYMOND ALEJANDRO M.D. on 10/20/2018 7:[address] Int Aud Canal Wo Contrast Result Date: 10/21/2018 CT TEMPORAL BONES WITHOUT CONTRAST HISTORY: 58 years old Female, head trauma. TECHNIQUE: CT images of the temporal bones were acquired without contrast. COMPARISON: CT head from earlier the same day. FINDINGS: RIGHT External Auditory Canal: Patent. Tympanic Membrane: Intact. Mastoid Air Cells: Well- formed and near completely opacified. No bony destruction. [...] paranasal sinus mucosal thickening and air-fluid levels. 1. Extensive thinning and numerous areas of [...] AM. Dictated by RAYMOND ALEJANDRO M.D. on 2018 7:21 AM. Patient Active Problem List Diagnosis Date Noted Altered mental status, unspecified 10/20/2018 Pneumonia due to infectious organism 10/19/2018 Acute respiratory failure with hypoxia and hypercapnia (HCC) 10/19/2018 Assessment/Plan: Etelvina Alonso is a 58 y.o. female with complex medical history including CABG and nonhealing wounds on legs and recent pneumonia. She is admitted for altered mental status and was found to have pneumocephalus and cerebritis on imaging work up. There is concern for multiple skull base defects and/or skull base thinning over bilateral tegmen and right sphenoid wing. Exam does not demonstrate acute otitis or sinuitis at this time. -- Agree with ID c/s and IV antibiotics -- We will discuss with neurotology staff today regarding the need for any future surgical intervention Please page for any questions or concerns. Juvenal Gottlieb MD Otolaryngology Resident, [id number] * Kelton Zelaya MD - 10/21/2018 10:52 AM CDT I saw this patient today on multidisciplinary rounds in conjunction with the bedside nurse and NEICU rounding team. I have reviewed all pertinent data, including labs, radiology, vital signs, neurologic assessments, nursing notes, respiratory therapy data, intake and output, and consult notes and have devised a plan based on the aforementioned data. This patient is critically ill with dysfunction of at least one organ system and is at risk for life threatening deterioration necessitating complex medical decision making and ongoing provision of ICU care. Critical Care Time: 45 minutes Ms Alonso is a 58 year old female with a complicated PMHx including CAD s/p CABG in [place] in July 2018 with a post-op course complicated by non-healing EVH leg wounds, HTN, HLD, depression, anxiety, and COPD who presented to an OSH on 10/16 with worsening shortness of breath and chest pain. A CTA was negative for PE but noted a RUL pneumonia. She was started on antibiotics at that time, but had an acute worsening of her mental status on 10/17 along with hypoxia requiring intubation. She had been fairly stable but given her inability to clear her mental status a CT scan was obtained which showed right temporal lobe pneumocephalus concerning for possible infection, so she was transferred to [facility] for further care. Of note, she has possibly attempted to overdose on gabapentin and acetaminophen prior to her admission. Neuro: -->Likely abscess of temporal lobe with surrounding cerebritis and ventriculitis - possibly due to mastoiditis vs. Other skull base defect. - ID consulted, recs appreciated. Continue Vancomycin and Meropenem - ENT and Neurosurgery consulted, recs appreciated - no operative interventions indicated currently - I don't know that an LP would change much, especially in light of patient's MRI findings of chronic increased ICP along with the fact that she's been on antibiotics for multiple days now, so I don't know if anything would grow on culture. -->Altered Mental Status - seems to be due to intracranial infection. She also has an elevated ammonia. She becomes very agitated off sedation, she moves all four extremities and is purposeful with her uppers, but does not follow commands nor does she track. - We'll continue to work down on her sedation as tolerated, but her mental status will likely continue to be poor until her intracerebral infection is adequately addressed - Levetiracetam for seizure prophylaxis along with propofol Cardiovascular: -->CAD s/p Recent CABG in July 2018 - complicated by chronic nonhealing bilateral lower extremity wounds and sternal nonunion - We'll have our Radiologists look at the outside Chest CT and see if there's any sign of mediastinitis. The incision itself looks good but there is a prominent area of nonunion about two fingerbreadths wide. - Continue home ASA. Hold clopidogrel - Continue metoprolol, amiodarone, atorvastatin - TTE performed here shows LVEF 35-40%, anterior MV leaflet prolapse, eccentric posterior lateral mitral valve regurgitation. No obvious signs of vegetation, but we may need to consider a JYOTSNA to fully rule out infective endocarditis - D/C furosemide Pulmonary -->Respiratory Failure requiring mechanical ventilation - 18/370/40/5 - Failed multiple attempts at spontaneous breathing trials due to profound tachypnea and low tidal volumes - We'll continue to work towards extubation, but her respiratory pattern will have to improve markedly before that's safe. -->COPD - Continue home budesonide, ipratropium/albuterol Renal: --> Hypernatremia - likely due to hypovolemia - We have her on 1/2 NS @ 50 mL/hr which we will continue until we can start TF 's - We'll start her on higher FWF, 300 mL q6h - Recheck sodium this afternoon Infectious Disease -->Strep Pneumo bacteremia - possibly due to RUL pneumonia, but also could be due to skin wounds or active cerebritis/ventriculitis. - Continue Vancomycin - Repeat blood cultures here to document clearance - NGTD thusfar -->RUL Pneumonia - sputum culture pending here. Continue antibiotics. -->Cerebritis/Ventriculitis/Intracranial abscess - ID, ENT, and Neurosurgery following - no indication for surgery at this point - Continue Vancomycin and Meropenem -->Nonhealing leg wounds with possible subcutaneous tracking - CT bilateral lower extremities. Continue antibiotics. -->Thrush - Continue Fluconazole --> Influenza A positive on RVP - we've started Oseltamivir 75 mg BID x 5 days. Per report her RVP at OSH was negative for Influenza, so I'm not entirely sure when she contracted this strain so we'll start antivirals given that we don't know when her infection started. Endocrine: No active issues. GI: Start tube feeds, watch for refeeding syndrome. SQH for DVT ppx CHX, HOB elevated for VAP ppx PPI for stress ulcer ppx Senna/docusate, Milk of Mag for bowel regimen. Start tube feeds today ET Tube, R IJ central line, Salomon * Enio Langley RN - 10/21/2018 10:32 AM CDT 0800 - Spoke with Dr. Zelaya about need for weaning sedation hourly for neuro checks due to patient getting agitated when sedation is stopped. Per Dr. Zelaya it is ok to just pause the sedation every 4 hours for neuro checks at this time. Will continue to monitor. * Pankaj Bunn MD - 10/21/2018 7:20 AM CDT Neuro Critical Care Progress Etelvina Alonso Admission Date: 10/19/2018 LOS: 2 days Full Code ASSESSMENT/PLAN Patient Active Problem List Diagnosis Date Noted Altered mental status, unspecified 10/20/2018 Pneumonia due to infectious organism 10/19/2018 Acute respiratory failure with hypoxia and hypercapnia (HCC) 10/19/2018 Etelvina Alonso is a 58 y.o. female with history of HTN, HLD, no non-healing leg wounds, CAD s/p CABG in 07/2018 who presented to an OSH on 10/16 with shortness of breath and chest pains and found to have a RUL pneumonia. She was intubated on 10/17 2/2 worsening respiratory status and AMS. On 10/19, CTA with R temporal lobe intraparenchymal air and surrounding edema. Transferred to [facility] for escalation of care. Hospital and ICU course: 10/19: [facility] Neuro: Altered mental status: encephalopathic vs sepsis; CT head 10/20: Concerning for possible cerebritis MRI Brain: Concerns for possible cerebritis of right temporal lobe and developing abscess, thin subdural empyema, mastoiditis Neurosurgery consult: No intervention at this time ENT consult: Possibility of myringotomy will discuss with NSG about possible joint porcedure Q1 neurochecks Keppra 500 mg BID PT/OT Sedation/Pain Management: Propofol PRN fentanyl, oxycodone and tylenol available - Assess for delirium daily Cardiac: HTN; HLD; CAD s/p CABG in 07/2018; Paroxysmal AF SBP goal: < 160 MAP goal > 65 PRODUCTION CONTROL TECHNOLOGIST metoprolol, amiodarone resumed - PRODUCTION [employer]OL TECHNOLOGIST lisinopril on hold PRODUCTION CONTROL TECHNOLOGIST atrovastatin and ASA resumed - PRODUCTION CONTROL TECHNOLOGIST plavix on hold Echo today: 35-40%, mitral valve borderline prolapse and regurg no vegetations Respiratory: RUL Pneumonia Date of Intubation: 10/17 Reason: Airway protection V/AV: - CXR: Increased lung volumes with persistent patchy mixed alveolar and interstitial opacities, which may represent pneumonia and/or edema. PRODUCTION CONTROL TECHNOLOGIST budesonide resumed - PaO2 goal >100, Spo2 goal >95%, PCO2 goal 35-40 torr, chest physiotherapy, bronchotherapy, PD& V q 6 hrs GI: Place Corpak and place tube feeds Feeding: NPO Bowel regimen, ensure daily BM Heme: Trend daily CBC SQ Heparin ASA Assess for coagulopathy, maintain platelets above 100k, INR <1.5 ID: Leukocytosis (mild); PNA; + Step pneumo bacteremia; Non-healing wounds on frequent Abx 10/16 - blood cultures positive for strep pneumo. Sputum + yeast Repeat gatica cultures, fungal included: Pseudomonas from lower extremity wound ID consult appreciate recs Trend daily CBC Continue spencer and vanc Aim for normothermia, Temp <38.3 celsius, normothermia protocol if febrile Renal: Trend daily BMP Resolved MARGO from admit at OSH with Cr 1.10 10/16 Intake/Output Summary (Last 24 hours) at 10/21/2018 0720 Last data filed at 10/21/2018 0700 Gross per 24 hour Intake 1064.28 ml Output 1840 ml Net -775.72 ml Aim for normovolemia Endocrine: Serum glucose 142 - Trend on daily BMP - Blood glucose goal 100-180mg/dl FEN: IVF: None 10/19 K 3.2 Mg 1.9 Phos 2.8 iCal 1.[address] Magnesium goal >2.0, i-Earl goal > 1.0, Potassium goal >4.0 mEq/L Prophylaxis Review: A)GI: [id number] B) Lines: Yes; Central Line; Indication: Frequent blood draws; Type: Internal jugular C) Urinary Catheter: Yes; Retain salomon due to: Need for accurate Intake and Output D) Antibiotic Usage: Yes; Infection present or suspected: Lung; Pneumonia E) VTE: Pharmacological prophylaxis; SQ Heparin and Mechanical prophylaxis; Sequential compression device F) Isolation: na G)Seizures: na I) Restraints: Patient assessed for need for restraints. Disposition/Family: Require ICU monitoring Primary service: NEICU Consults: None SUBJECTIVE No acute overnight events. Past Medical History: Diagnosis Date Arthritis Asthma CAD (coronary artery disease) COPD (chronic obstructive pulmonary disease) (HCC) Depression Disruption or dehiscence of closure of sternum or sternotomy Edentulous 2016 Poor dentition Endometriosis Hyperlipidemia Hypertension, essential Non-healing wound of lower extremity Paroxysmal atrial fibrillation (HCC) Pneumothorax tripped over a kraig toy, had a pneumothorax, had lung surgery in [facility] [place] Restless leg syndrome Past Surgical History: Procedure Laterality Date HX CORONARY ARTERY BYPASS GRAFT HYSTERECTOMY OOPHORECTOMY ORTHOPEDIC SURGERY ligament repair in december 2017 VASCULAR SURGERY Family History Problem Relation Age of Onset Psoriasis Sister Heart Attack Sister maker 95% blocked s/p stenting Diabetes Sister Heart Disease Brother [place] in s, with several stents Social History Social History Narrative Has 2 children and 2 grandchildren Son lives in [place] She is , to [place], for 30 years 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 Allergies: Patient has no known allergies. Medications Prior to Admission Medication Sig amiodarone (CORDARONE) 200 mg tablet Take 200 mg by mouth daily. Take with food. aspirin 81 mg chewable tablet Chew 81 mg by mouth daily. Take with food. atorvastatin (LIPITOR) 20 mg tablet Take 20 mg by mouth at bedtime daily. budesonide respule (PULMICORT) 0.5 mg/2 mL nebulizer solution Inhale 1 mg solution by nebulizer as directed twice daily. clopiDOGrel (PLAVIX) 75 mg tablet Take 75 mg by mouth daily. furosemide (LASIX) 20 mg tablet Take 20 mg by mouth every morning. HYDROcodone/acetaminophen (NORCO) 5/325 mg tablet Take 1 tablet by mouth every 6 hours as needed for Pain ipratropium/albuterol (COMBIVENT RESPIMAT) 20-100 mcg/actuation mist inhaler Inhale 1 puff by mouth into the lungs every 4 hours as needed. lisinopril (PRINIVIL; ZESTRIL) 5 mg tablet Take 5 mg by mouth daily. melatonin 3 mg tab Take 5 mg by mouth at bedtime daily. metoprolol XL (TOPROL XL) 25 mg extended release tablet Take 25 mg by mouth daily. nicotine (NICODERM CQ STEP 1) 21 mg/day patch Apply 1 patch to top of skin as directed every 24 hours. Rotate patch location. oxyCODONE/acetaminophen (PERCOCET; ENDOCET; ROXICET) 5/325 mg tablet Take 1 tablet by mouth every 6 hours as needed for Pain polyethylene glycol 3350 (MIRALAX) 17 g packet Take 17 g by mouth twice daily. potassium chloride SR (K-DUR) 20 mEq tablet Take 20 mEq by mouth daily. Take with a meal and a full glass of water. sertraline (ZOLOFT) 50 mg tablet Take 50 mg by mouth at bedtime daily. Review of Systems: Review of systems not obtained from patient due to patient factors. OBJECTIVE Vital Signs: Last Filed Vital Signs: 24 Hour Range BP: 126/69 (10/21 699) Temp: 37.9 C (100.3 F) (10/22 399) Pulse: 95 (10/21 699) Respirations: 18 PER MINUTE (10/21 699) SpO2: 100 % (10/21 699) O2 Delivery: Endotracheal Tube (Oral) (10/21 699) Height: 162.6 cm (64") (10/20 1010) Weight: 52.8 kg (116 lb 6.5 oz) (10/21 300) BP: (97-157)/(47-94) Temp: [37.2 C (98.9 F)-38.3 C (100.9 F)] Pulse: [93-136] Respirations: [0 PER MINUTE-40 PER MINUTE] SpO2: [97 %-100 %] O2 Delivery: Endotracheal Tube (Oral) Intensity Pain Scale (Self Report): (not recorded) Vitals: 10/20/18 04010/20/18 1010 10/21/18 030 Weight: 54.1 kg (119 lb 4.3 oz) 54 kg (119 lb) 52.8 kg (116 lb 6.5 oz) Artificial airway: Endotracheal Tube Ventilator/ Respiratory Therapy: Yes: Mode: V/AC+ Set Vt (ml): [370 milliliters] Tidal Volume Spont (mL): [352 milliliters-366 milliliters] Set RR: [18 breaths/minutes] Total Respiratory Rate (Breaths/Min): [20 breaths/minutes-23 breaths/minutes] Minute Volume (L/min): [7.49 liters/minutes-8.71 liters/minutes] O2%: [40 %] PIP Actual: [24 cm H20-26 cm H20] PEEP/CPAP: [5 cm H2O] Vent weaning trial: Per protocol Lines: Central Line Drains: Salomon Catheter; Oralgastric tube Intake/Output Summary: (Last 24 hours) Intake/Output Summary (Last 24 hours) at 10/21/2018719 Last data filed at 10/21/2018699 Gross per 24 hour Intake 1064.28 ml Output 1840 ml Net -775.72 ml Stool Occurrence: 1 Physical Exam: Blood pressure 126/69, pulse 95, temperature 37.9 C (100.3 F), height 162.6 cm (64"), weight 52.8 kg (116 lb 6.5 oz), SpO2 100 %. [place] coma score: 7+T E: 2 - Opens eyes with pain M: 4 - Moves part of body but does not remove noxious stimulus V: 1 - Makes no noise FOUR score: E: 1 M: 3 BR: 4 Resp: 1 Neuro: Mental Status: Obtunded, not following commands. Cranial Nerves: - Pupil exam: Size: Right 3 Left 4 Reactivity: Brisk BL - EOM: Intact - Corneal reflex: R - present L - present - Grimace/facial movement: present - Cough: present - Gag reflex: present Motor: Moves all extremities spontaneously and away from stimulus. Attempts to kick in direction of care technician. Sensory: appears intact Coordination: Deferred DTRs: 2/4 Gait: Deferred Lungs: clear in BL uppers, fine crackles in Bl bases Pulmonary: Mechanical ventilation Heart: regular rate and rhythm, S1, S2 normal, no murmur, click, rub or gallop Abdomen: soft, non-tender. Bowel sounds normal. No masses, no organomegaly Extremities: extremities normal, atraumatic, no cyanosis. Mild 1+, non-pitting dependent eyelid/facial edema, 1-2+ dependent edema in hands and feet. Skin: Skin color, texture, turgor normal. No rashes. Non healing leg wounds. Point of Care Testing: (Last 24 hours): Glucose: (!) 118 (10/21/18 0310) Lab Review: Pertinent labs reviewed Radiology and Other Diagnostic Procedures Review: Pertinent radiologic and diagnostic procedures reviewed. Pankaj Bunn MD Date: 10/21/[phone] * Karen Duval RN - 10/21/2018 7:10 AM CDT I have reviewed the notes, assessment, and/or procedures performed by Saba Buck and concur with her/his documentation unless otherwise noted. * Russ Lopez RN - 10/20/2018 3:00 PM AUTOMATIC NAILING MACHINE FEEDER Significant motion during scanning, 25 mcg of Fentanyl administered. Continuing with imaging, MATIC NAILING MACHINE FEEDER * Russ Lopez RN - 10/20/2018 2:33 PM AUTOMATIC NAILING MACHINE FEEDER significant motion during imaging, Propofol infusion rate increased with minimal effect, Fentanyl 50 mcg, administered as per PRN orders, MATIC NAILING MACHINE FEEDER * Sudha Quan, PT - 10/20/2018 1:36 PM AUTOMATIC NAILING MACHINE FEEDER PHYSICAL THERAPY NOTE Physical therapy orders received and appreciated. Chart reviewed and discussed patient status with bedside RN. Per RN, patient currently intubated and sedated ; not appropriate for purposeful PT evaluation at this time. PT will follow up as able and provide evaluation/treatment as indicated. Therapist: Sudha Quan PT, DPT Date: 10/20/2018 MATIC NAILING MACHINE FEEDER * Aline Sneed, OT - 10/20/2018 1:36 PM AUTOMATIC NAILING MACHINE FEEDER OCCUPATIONAL THERAPY NOTE OT orders received and appreciated. Chart reviewed and discussed status with RN. Per RN, patient currently intubated and sedated; not appropriate for purposeful OT evaluation at this time. OT will follow up as indicated to provide evaluation/treatment. Therapist: Aline Sneed, OTR/L [id number] Date: 10/20/2018 MATIC NAILING MACHINE FEEDER * Russ Lopez RN - 10/20/2018 1:35 PM AUTOMATIC NAILING MACHINE FEEDER 1300 - Assumed care, travelled with pt to CT/MRI, vented, sedated, monitored, restrained, accompanied by this nurse, Howard TOLLIVER, tolerated well. 1335 - CT completed, transferred to MRI table, no adverse events, monitoring in place, Imaging in progress. MATIC NAILING MACHINE FEEDER * Elsy Luke, PHARMD - 10/20/2018 9:51 AM AUTOMATIC NAILING MACHINE FEEDER Pharmacy Vancomycin Note Subjective: Etelvina Alonso is a 58 y.o. female being treated for cerebritis. Objective: Current Vancomycin Orders Medication Dose Route Frequency vancomycin (VANCOCIN) 1,000 mg in sodium chloride 0.9% (NS) 250 mL IVPB ( Ftzo2Oul) 1 g Intravenous ONCE Followed by vancomycin (VANCOCIN) 750 mg in D5W 150mL IVPB (premade) 15 mg/kg Intravenous Q12H* vancomycin, pharmacy to manage 1 each Service Per Pharmacy Start Date of Vancomycin therapy: 10/20/2018 White Blood Cells Date/Time Value Ref Range Status 10/20/2018 0338 14.2 (H) 4.5 - 11.0 K/UL Final 10/19/2018 2336 13.0 (H) 4.5 - 11.0 K/UL Final Creatinine Date/Time Value Ref Range Status 10/20/2018 0338 0.50 0.4 - 1.00 MG/DL Final 10/19/2018 2336 0.51 0.4 - 1.00 MG/DL Final Blood Urea Nitrogen Date/Time Value Ref Range Status 10/20/2018 0338 13 7 - 25 MG/DL Final Estimated CrCl: 75.7 Intake/Output Summary (Last 24 hours) at 10/20/2018 0951 Last data filed at 10/20/2018 0900 Gross per 24 hour Intake 864.59 ml Output 610 ml Net 254.59 ml Actual Weight: 54.1 kg (119 lb 4.3 oz) Dosing BW: 54.1 kg Assessment: Target levels for this patient: Trough 15-20 mcg/ml. Plan: 1. Load with vancomycin 1000 mg x 1 followed by 750 mg IV q12h 2. Next scheduled level(s): Prior to the fourth dose 3. Pharmacy will continue to monitor and adjust therapy as needed. Elsy Luke, PHARMD 10/20/2018 [employer]IC NAILING MACHINE FEEDER * Magali Patel RN - 10/20/2018 8:00 AM AUTOMATIC NAILING MACHINE FEEDER MD Sepide[facility], with [facility] notified of pt's Left pupil>right pupil at 0800 assessment. MD at bedside to assess. Orders to continue to monitor and assess. MATIC NAILING MACHINE FEEDER * Karen Duval RN - 10/20/2018 6:36 AM AUTOMATIC NAILING MACHINE FEEDER I have reviewed the notes, assessment, and/or procedures performed by Saba Buck and concur with her/his documentation unless otherwise noted. MATIC NAILING MACHINE FEEDER * Pankaj Bunn MD - 10/20/2018 6:23 AM AUTOMATIC NAILING MACHINE FEEDER Neuro Critical Care Progress Etelvina Alonso Admission Date: 10/19/2018 LOS: 1 day Full Code ASSESSMENT/PLAN Patient Active Problem List Diagnosis Date Noted Altered mental status, unspecified 10/20/2018 Pneumonia due to infectious organism 10/19/2018 Acute respiratory failure with hypoxia and hypercapnia (HCC) 10/19/2018 Etelvina Alonso is a 58 y.o. female with history of HTN, HLD, no non-healing leg wounds, CAD s/p CABG in 07/2018 who presented to an OSH on 10/16 with shortness of breath and chest pains and found to have a RUL pneumonia. She was intubated on 10/17 2/2 worsening respiratory status and AMS. On 10/19, CTA with R temporal lobe intraparenchymal air and surrounding edema. Transferred to [facility] for escalation of care. Hospital and ICU course: 10/19: Transferred from OSH [facility] Neuro: Altered mental status: encephalopathic vs sepsis; Small R Temporal lobe intraparenchymal air CT head 10/20: Concerning for possible cerebritis Skull base MRI brain CT temporal lube Q1 neurochecks PT/OT Sedation/Pain Management: Propofol PRN fentanyl, oxycodone and tylenol available - Assess for delirium daily Cardiac: HTN; HLD; CAD s/p CABG in 07/2018; Paroxysmal AF SBP goal: < 160 MAP goal > 65 PRODUCTION CONTROL TECHNOLOGIST metoprolol, amiodarone resumed - PRODUCTION CONTROL TECHNOLOGIST lisinopril on hold PRODUCTION CONTROL TECHNOLOGIST atrovastatin and ASA resumed - PRODUCTION CONTROL TECHNOLOGIST plavix on hold Echo today Respiratory: RUL Pneumonia Date of Intubation: 10/17 Reason: Airway protection V/AV: - CXR: Increased lung volumes with persistent patchy mixed alveolar and interstitial opacities, which may represent pneumonia and/or edema. PRODUCTION CONTROL TECHNOLOGIST budesonide resumed - PaO2 goal >100, Spo2 goal >95%, PCO2 goal 35-40 torr, chest physiotherapy, bronchotherapy, PD& V q 6 hrs GI: Place Corpak and place tube feeds Feeding: NPO Bowel regimen, ensure daily BM Heme: Trend daily CBC SQ Heparin Assess for coagulopathy, maintain platelets above 100k, INR <1.5 ID: Leukocytosis (mild); PNA; + Step pneumo bacteremia; Non-healing wounds on frequent Abx 10/16 - blood cultures positive for strep pneumo. Sputum + yeast Repeat gatica cultures, fungal included, here ID consult appreciate recs Trend daily CBC Spencer and vanc Aim for normothermia, Temp <38.3 celsius, normothermia protocol if febrile Renal: Trend daily BMP Resolved MARGO from admit at OSH with Cr 1.10 10/16 Intake/Output Summary (Last 24 hours) at 10/20/2018 0623 Last data filed at 10/20/2018 0600 Gross per 24 hour Intake 751.59 ml Output 355 ml Net 396.59 ml Aim for normovolemia Endocrine: Serum glucose 142 - Trend on daily BMP - Blood glucose goal 100-180mg/dl FEN: IVF: None 10/19 K 3.2 Mg 1.9 Phos 2.8 iCal 1.[address] Magnesium goal >2.0, i-Earl goal > 1.0, Potassium goal >4.0 mEq/L Prophylaxis Review: A)GI: [id number] B) Lines: Yes; Central Line; Indication: Frequent blood draws; Type: Internal jugular C) Urinary Catheter: Yes; Retain salomon due to: Need for accurate Intake and Output D) Antibiotic Usage: Yes; Infection present or suspected: Lung; Pneumonia E) VTE: Pharmacological prophylaxis; SQ Heparin and Mechanical prophylaxis; Sequential compression device F) Isolation: na G)Seizures: na I) Restraints: Patient assessed for need for restraints. Disposition/Family: Require ICU monitoring Primary service: NEICU Consults: None SUBJECTIVE No acute overnight events. Past Medical History: Diagnosis Date CAD (coronary artery disease) Disruption or dehiscence of closure of sternum or sternotomy Hyperlipidemia Hypertension, essential Non-healing wound of lower extremity Paroxysmal atrial fibrillation (HCC) Past Surgical History: Procedure Laterality Date HX CORONARY ARTERY BYPASS GRAFT No family history on file. Social History Social History Narrative Not on file Code Status: Full Code Decision Maker: Self, otherwise Nolan Immunizations (includes history and patient reported): There is no immunization history on file for this patient. Allergies: Patient has no known allergies. Medications Prior to Admission Medication Sig amiodarone (CORDARONE) 200 mg tablet Take 200 mg by mouth daily. Take with food. aspirin 81 mg chewable tablet Chew 81 mg by mouth daily. Take with food. atorvastatin (LIPITOR) 20 mg tablet Take 20 mg by mouth at bedtime daily. budesonide respule (PULMICORT) 0.5 mg/2 mL nebulizer solution Inhale 1 mg solution by nebulizer as directed twice daily. clopiDOGrel (PLAVIX) 75 mg tablet Take 75 mg by mouth daily. furosemide (LASIX) 20 mg tablet Take 20 mg by mouth every morning. HYDROcodone/acetaminophen (NORCO) 5/325 mg tablet Take 1 tablet by mouth every 6 hours as needed for Pain ipratropium/albuterol (COMBIVENT RESPIMAT) 20-100 mcg/actuation mist inhaler Inhale 1 puff by mouth into the lungs every 4 hours as needed. lisinopril (PRINIVIL; ZESTRIL) 5 mg tablet Take 5 mg by mouth daily. melatonin 3 mg tab Take 5 mg by mouth at bedtime daily. metoprolol XL (TOPROL XL) 25 mg extended release tablet Take 25 mg by mouth daily. nicotine (NICODERM CQ STEP 1) 21 mg/day patch Apply 1 patch to top of skin as directed every 24 hours. Rotate patch location. oxyCODONE/acetaminophen (PERCOCET; ENDOCET; ROXICET) 5/325 mg tablet Take 1 tablet by mouth every 6 hours as needed for Pain polyethylene glycol 3350 (MIRALAX) 17 g packet Take 17 g by mouth twice daily. potassium chloride SR (K-DUR) 20 mEq tablet Take 20 mEq by mouth daily. Take with a meal and a full glass of water. sertraline (ZOLOFT) 50 mg tablet Take 50 mg by mouth at bedtime daily. Review of Systems: Review of systems not obtained from patient due to patient factors. OBJECTIVE Vital Signs: Last Filed Vital Signs: 24 Hour Range BP: 131/67 (10/20 599) Temp: 37.8 C (100.1 F) (10/21 399) Pulse: 117 (10/20 599) Respirations: 22 PER MINUTE (10/20 599) SpO2: 98 % (10/20 599) O2 Delivery: Endotracheal Tube (Oral) (10/20 599) Height: 162.6 cm (64") (10/19 2299) Weight: 54.1 kg (119 lb 4.3 oz) (10/21 399) Dosing / Dry Weight: 54.3 kg (119 lb 11.4 oz) (10/19 2299) BP: (91-131)/(54-74 ) Temp: [36.9 C (98.4 F)-37.8 C (100.1 F)] Pulse: [82-142] Respirations: [17 PER MINUTE-43 PER MINUTE] SpO2: [95 %-100 %] O2 Delivery: Endotracheal Tube (Oral) Intensity Pain Scale (Self Report): (not recorded) Vitals: 10/19/18229910/20/18399 Weight: 54.3 kg (119 lb 11.4 oz) 54.1 kg (119 lb 4.3 oz) Artificial airway: Endotracheal Tube Ventilator/ Respiratory Therapy: Yes: Mode: V/AC+ Set Vt (ml): [370 milliliters] Tidal Volume Spont (mL): [346 milliliters-372 milliliters] Set RR: [18 breaths/minutes] Total Respiratory Rate (Breaths/Min): [19 breaths/minutes-23 breaths/minutes] Minute Volume (L/min): [7 liters/minutes-8.57 liters/minutes] O2%: [40 %] PIP Actual: [21 cm H20-25 cm H20] PEEP/CPAP: [5 cm H2O] Vent weaning trial: Per protocol Lines: Central Line Drains: Salomon Catheter; Oralgastric tube Intake/Output Summary: (Last 24 hours) Intake/Output Summary (Last 24 hours) at 10/20/2018622 Last data filed at 10/20/2018 0600 Gross per 24 hour Intake 751.59 ml Output 355 ml Net 396.59 ml Physical Exam: Blood pressure 131/67, pulse 117, temperature 37.8 C (100.1 F), height 162.6 cm (64"), weight 54.1 kg (119 lb 4.3 oz), SpO2 98 %. [place] coma score: 7+T E: 2 - Opens eyes with pain M: 4 - Moves part of body but does not remove noxious stimulus V: 1 - Makes no noise FOUR score: E: 1 M: 3 BR: 4 Resp: 1 Neuro: Mental Status: Obtunded, not following commands. Cranial Nerves: - Pupil exam: Size: 3/4 Reactivity: Brisk BL - EOM: Intact - Corneal reflex: R - present L - present - Grimace/facial movement: present - Cough: present - Gag reflex: present Motor: Moves all extremities spontaneously and away from stimulus. Attempts to kick in direction of care technician. Sensory: appears intact Coordination: Deferred DTRs: 2/4 Gait: Deferred Lungs: clear in BL uppers, fine crackles in Bl bases Pulmonary: Mechanical ventilation Heart: regular rate and rhythm, S1, S2 normal, no murmur, click, rub or gallop Abdomen: soft, non-tender. Bowel sounds normal. No masses, no organomegaly Extremities: extremities normal, atraumatic, no cyanosis. Mild 1+, non-pitting dependent eyelid/facial edema, 1-2+ dependent edema in hands and feet. Skin: Skin color, texture, turgor normal. No rashes. Non healing leg wounds. Point of Care Testing: (Last 24 hours): Glucose: (!) 142 (10/20/18 0338) Lab Review: Pertinent labs reviewed Radiology and Other Diagnostic Procedures Review: Pertinent radiologic and diagnostic procedures reviewed. Pankaj Bunn MD Date: 10/20/[phone] MATIC NAILING MACHINE FEEDER Associated attestation - Kelton Zelaya MD - 10/20/2018 9:58 PM AUTOMATIC NAILING MACHINE FEEDER I have seen, personally fully evaluated, and discussed patient with Dr Bunn. I agree with the objective findings and agree with the plan of care as documented by the resident with the exceptions noted. The patient is critically ill with strep pneumo bacteremia, pneumonia, respiratory failure, altered mental status, infected non-healing leg wounds, encephalopathy, and pneumocephalus on her CT scan concerning for an infectious process. I spent 83 minutes (excluding time spent performing or supervising any procedures) providing and personally directing critical care services, including reviewing imaging and laboratory results. Ms Alonso is a 58 year old female with a complicated PMHx including CAD s/p CABG in [place] in July 2018 with a post-op course complicated by non-healing EVH leg wounds, HTN, HLD, depression, anxiety, and COPD who presented to an OSH on 10/16 with worsening shortness of breath and chest pain. A CTA was negative for PE but noted a RUL pneumonia. She was started on antibiotics at that time, but had an acute worsening of her mental status on 10/17 along with hypoxia requiring intubation. She had been fairly stable but given her inability to clear her mental status a CT scan was obtained which showed right temporal lobe pneumocephalus concerning for possible infection, so she was transferred to [facility] for further care. Of note, she has possibly attempted to overdose on gabapentin and acetaminophen prior to her admission. Neuro: -->Likely abscess of temporal lobe with surrounding cerebritis and ventriculitis - possibly due to mastoiditis vs. Other skull base defect. - ID consulted, recs appreciated. Change to Vancomycin and Meropenem - ENT and Neurosurgery consulted, recs appreciated - We'll consider an LP depending on when the last time she received her Clopidogrel was -->Altered Mental Status - seems to be due to intracranial infection. She also has an elevated ammonia. She becomes very agitated off sedation, she moves all four extremities and is purposeful with her uppers, but does not follow commands nor does she track. - Consider EEG tomorrow - We'll start some lactulose/rifaximin to help clear her ammonia - We'll continue to work down on her sedation as tolerated, but her mental status will likely continue to be poor until her intracerebral infection is adequately addressed Cardiovascular: -->CAD s/p Recent CABG in July 2018 - complicated by chronic nonhealing bilateral lower extremity wounds and sternal nonunion - We'll have our Radiologists look at the outside Chest CT and see if there's any sign of mediastinitis. The incision itself looks good but there is a prominent area of nonunion about two fingerbreadths wide. - Continue home ASA. Hold clopidogrel - Continue metoprolol, amiodarone, furosemide, atorvastatin - TTE performed here shows LVEF 35-40%, anterior MV leaflet prolapse, eccentric posterior lateral mitral valve regurgitation. No obvious signs of vegetation, but we may need to consider a JYOTSNA to fully rule out infective endocarditis Pulmonary -->Respiratory Failure requiring mechanical ventilation - 18/370/40/5 - Failed multiple attempts at spontaneous breathing trials due to profound tachypnea and low tidal volumes - We'll continue to work towards extubation, but her respiratory pattern will have to improve markedly before that's safe. -->COPD - Continue home budesonide, ipratropium/albuterol Renal: No active issues. Infectious Disease -->Strep Pneumo bacteremia - possibly due to RUL pneumonia, but also could be due to skin wounds or active cerebritis/ventriculitis. - Continue Vancomycin - Repeat blood cultures here to document clearance - Consider JYOTSNA to look for infective endocarditis. -->RUL Pneumonia - sputum culture pending here. Continue antibiotics. -->Cerebritis/Ventriculitis/Intracranial abscess - ID, ENT, and Neurosurgery following - no indication for surgery at this point - Continue Vancomycin and Meropenem - Consider LP tomorrow if she didn't receive clopidogrel at the outside hospital -->Nonhealing leg wounds with possible subcutaneous tracking - CT bilateral lower extremities. Continue antibiotics. -->Thrush - Continue Fluconazole Endocrine: No active issues. GI: Start tube feeds, watch for refeeding syndrome. SQH for DVT ppx CHX, HOB elevated for VAP ppx PPI for stress ulcer ppx Senna/docusate, Milk of Mag for bowel regimen. Adding lactulose Start tube feeds today ET Tube, R IJ central line, Saba Grant - 10/20/2018 2:55 AM AUTOMATIC NAILING MACHINE FEEDER Patient arrived to room #5126 via bed accompanied by RN. Patient transferred to the bed with assistance. Bedside safety checks completed. Initial patient assessment completed, refer to flowsheet for details. Admission skin assessment completed by: Pressure Injury Present on Hospital Admission (within 24 hours): No 1. Occiput: No 2. Ear: No 3. Scapula: No 4. Spinous Process: No 5. Shoulder: No 6. Elbow: No 7. Iliac Crest: No 8. Sacrum/Coccyx: No 9. Ischial Tuberosity: No 10. Trochanter: No 11. Knee: No 12. Malleolus: No 13. Heel: No 14. Toes: No 15. Assessed for device associated injury Yes 16. Nursing Nutrition Assessment Completed Yes See Doc Flowsheet for additional wound details. INTERVENTIONS: MATIC NAILING MACHINE FEEDER documented in this encounter H&P Notes * Radha Pro APRN,JOVANI - 11/01/2018 9:29 AM CDT Interventional Radiology Consult Note with Pre-procedural History and Physical Admission Date: 10/19/2018 LOS: 13 days Active Problems: Pneumonia due to infectious organism Acute respiratory failure with hypoxia and hypercapnia (HCC) Altered mental status, unspecified Paroxysmal atrial fibrillation (HCC) Pneumocephalus Cerebritis Influenza A Abscess of brain Reason for consult: Pt with trach and need for long term care administrator PO access. Assessment: Corpak in place. Plan: 1. Procedure request for has been reviewed and added onto the IR schedule for today. Please keep NPO. Labs, medications, and allergies meet procedural protocol. IR will attempt GJ tube placement but possible to only be able G tube access initially and pt will need to come back for conversion to GJ tube in future. We appreciate being able to participate in this patient's care. Please page with any questions or concerns. Radha Arango APRN,LORETO- Pgr [phone] IR Team Pager [phone] (After-hours and Weekends) Procedure Date: 11/01/2018 Procedure: GJ tube placement. IR Pre Procedure Notes: Consent in chart. Chief Complaint: Dysphagia. Previous Anesthetic/Sedation History: Reviewed. History of present illness: Etelvina Alonso is a 58 y.o. female patient with PMH influenza, pneumonia, and brain abscess who is now in need of long term care administrator PO access. Review of Systems Constitutional: negative Respiratory: positive for pneumonia Cardiovascular: negative Gastrointestinal: negative Medications Scheduled Meds: ascorbic acid (VITAMIN C) tablet 500 mg 500 mg Per NG tube QDAY aspirin chewable tablet 81 mg 81 mg Per OG Tube QDAY atorvastatin (LIPITOR) tablet 20 mg 20 mg Per OG Tube QHS budesonide respule (PULMICORT) nebulizer solution 0.5 mg 0.5 mg Inhalation BID cefepime (MAXIPIME) 2 g in sodium chloride 0.9% (NS) 100 mL IVPB (MB+) 2 g Intravenous Q8H* [START ON 11/06/2018] cefTRIAXone (ROCEPHIN) IVP 2 g 2 g Intravenous Q12H* chlorhexidine gluconate (PERIDEX) 0.12 % solution 15 mL 15 mL Swish & Spit BID collagenase (SANTYL) topical ointment Topical BID docusate (COLACE) oral solution 100 mg 100 mg Per OG Tube BID famotidine (PEPCID) oral suspension 20 mg 20 mg Per NG tube BID heparin (porcine) PF syringe 5,000 Units 5,000 Units Subcutaneous Q8H melatonin tablet 3 mg 3 mg Oral QHS milk of magnesia (CONC) oral suspension 10 mL 10 mL Per OG Tube QDAY nicotine (NICODERM CQ STEP 1) 21 mg/day patch 1 patch 1 patch Transdermal QDAY( 21) ofloxacin (FLOXIN) 0.3 % (ophthalmic for otic use) solution 4 drop 4 drop Both Ears TID potassium chloride oral solution 20 mEq 20 mEq Per OG Tube QDAY risperiDONE (RISPERDAL) tablet 1 mg 1 mg Oral QHS senna/docusate (SENOKOT-S) solution 10 mL 10 mL Per OG Tube BID sertraline (ZOLOFT) tablet 50 mg 50 mg SEE ADMIN INSTRUCTIONS QHS zinc sulfate capsule 220 mg 220 mg Per NG tube QDAY Continuous Infusions: PRN and Respiratory Meds:acetaminophen Q4H PRN, calcium gluconate IV PRN (Heating Operators Engineer from Rx) AND Ionized Calcium PRN AND Notify Physician Ongoing, fentaNYL citrate PF Q1H PRN, ipratropium/albuterol Q4H PRN, magnesium sulfate PRN AND [CANCELED] Magnesium PRN AND Notify Physician Ongoing, oxyCODONE Q4H PRN, pancrelipase 20,000 Units/ sodium bicarbonate 650 mg(#) PRN ( Heating Operators Engineer from Rx), potassium chloride SR PRN OR potassium chloride PRN Objective Vital Signs: Last Filed Vital Signs: 24 Hour Range BP: 130/100 (11/02 799) Temp: 37.2 C (99 F) (11/02 799) Pulse: 109 (11/01 904) Respirations: 25 PER MINUTE (11/01 904) SpO2: 100 % (11/01 904) O2 Delivery: Tracheal Tube (11/01 699) SpO2 Pulse: 109 (11/01 904) BP: (92-158)/(42-100) Temp: [37.1 C (98.7 F)-37.4 C (99.4 F)] Pulse: [86-114] Respirations: [17 PER MINUTE-33 PER MINUTE] SpO2: [95 %-100 %] O2 Delivery: Tracheal Tube Intensity Pain Scale (Self Report): 4 (11/01/18 0400) Vitals: 10/28/18 0500 10/29/18 0500 10/30/18 0400 Weight: 52.6 kg (115 lb 15.4 oz) 51.7 kg (113 lb 15.7 oz) 51.5 kg (113 lb 8.6 oz ) Intake/Output Summary: (Last 24 hours) Intake/Output Summary (Last 24 hours) at 11/01/2018 0931 Last data filed at 11/01/2018 0900 Gross per 24 hour Intake 1889 ml Output 1485 ml Net 404 ml Stool Occurrence: 1 Physical Exam General: Alert, cooperative, no distress, appears stated age Lungs: Non-labored on trach via vent Heart: Regular rate and rhythm, S1, S2 normal, no murmur, click rub or gallop Airway: airway assessment performed Mallampati II (soft palate, uvula, fauces visible) Anesthesia Classification: ASA III (A patient with a severe systemic disease that limits activity, but is not incapacitating) Sedation/Medication Plan: Fentanyl, Lidocaine and Midazolam Personal history of sedation complications: Denies adverse event. Family history of sedation complications: Denies adverse event. Medications for Reversal: Naloxone and Flumazenil Discussion/Reviews: Physician has discussed risks and alternatives of this type of sedation and above planned procedures with patient NPO Status: Acceptable Status: Not Lab/Radiology/Other Diagnostic Tests:Labs: 24-hour labs: Results for orders placed or performed during the hospital encounter of (from the past 24 hour(s)) IONIZED CALCIUM Collection Time: 11/01/18 4:15 AM Result Value Ref Range Ionized Calcium 1.29 1.0 - 1.3 MMOL/L CBC AND DIFF Collection Time: 11/01/18 4:15 AM Result Value Ref Range White Blood Cells 8.5 4.5 - 11.0 K/UL RBC 3.74 (L) 4.0 - 5.0 M/UL Hemoglobin 11.4 (L) 12.0 - 15.0 GM/DL Hematocrit 35.0 (L) 36 - 45 % MCV 93.6 80 - 100 FL MCH 30.6 26 - 34 PG MCHC 32.7 32.0 - 36.0 G/DL RDW 13.6 11 - 15 % Platelet Count 588 (H) 150 - 400 K/UL MPV 10.0 7 - 11 FL Neutrophils 63 41 - 77 % Lymphocytes 22 (L) 24 - 44 % Monocytes 11 4 - 12 % Eosinophils 3 0 - 5 % Basophils 1 0 - 2 % Absolute Neutrophil Count 5.50 1.8 - 7.0 K/UL Absolute Lymph Count 1.80 1.0 - 4.8 K/UL Absolute Monocyte Count 0.90 (H) 0 - 0.80 K/UL Absolute Eosinophil Count 0.20 0 - 0.45 K/UL Absolute Basophil Count 0.10 0 - 0.20 K/UL BASIC METABOLIC PANEL Collection Time: 11/01/18 4:15 AM Result Value Ref Range Sodium 138 137 - 147 MMOL/L Potassium 4.0 3.5 - 5.1 MMOL/L Chloride 105 98 - 110 MMOL/L CO2 23 21 - 30 MMOL/L Anion Gap 10 3 - 12 Glucose 109 (H) 70 - 100 MG/DL Blood Urea Nitrogen 13 7 - 25 MG/DL Creatinine 0.43 0.4 - 1.00 MG/DL Calcium 10.2 8.5 - 10.6 MG/DL eGFR Non >60 >60 mL/min eGFR >60 >60 mL/min MAGNESIUM Collection Time: 11/01/18 4:15 AM Result Value Ref Range Magnesium 2.0 1.6 - 2.6 mg/dL PHOSPHORUS Collection Time: 11/01/18 4:15 AM Result Value Ref Range Phosphorus 4.4 2.0 - 4.5 MG/DL Radiology: Reviewed. * Lorena Rockwell, MSN,CRITICAL POWER INSTALL TECHNICIAN - 10/19/2018 8:07 PM AUTOMATIC NAILING MACHINE FEEDER Neuro Critical Care History and Physical Etelvina Alonso Admission Date: (Not on file) LOS: 0 days No Order ASSESSMENT/PLAN Patient Active Problem List Diagnosis Date Noted Pneumonia due to infectious organism 10/19/2018 Acute respiratory failure with hypoxia and hypercapnia (HCC) 10/19/2018 Etelvina Alonso is a 58 y.o. female with history of HTN, HLD, no nhealing leg wounds, CAD s/p CABG in 07/2018 who presented to an OSH on 10/16 with shortness of breath and hcest pains and found to have a RUL pneumonia. She was intubated on 10/17 2/2 worsening respiratory status and AMS. On 10/19, CTA with R temporal lobe intraparenchymal air and surrounding edema. Transferred to [facility] for escalation of care. Hospital and ICU course: 10/19: [facility] Neuro: Altered mental status: encephalopathic vs sepsis; Small R Temporal lobe intraparenchymal air CT head at 400 Q1 neurochecks PT/OT - SEASONAL SALES ASSOCIATE once extubated and more appropriate - Neuro-ICU monitoring, neurochecks q 1 hrs, parameters for prevention of secondary brain injury (avoid hypotension, hypoxia, fever, hyperglycemia, significant anemia, diagnose and treatment of seizures, electrolyte abnormalities) Sedation/Pain Management: Propofol for sedation - paused upon arrival for assessment and shortly resumed PRN fentanyl, oxycodone and tylenol available - Assess for delirium daily Cardiac: HTN; HLD; CAD s/p CABG in 07/2018; Paroxysmal AF SBP goal: < 160 MAP goal > 65 PRODUCTION CONTROL TECHNOLOGIST metoprolol, amiodarone resumed - PRODUCTION CONTROL TECHNOLOGIST lisinopril on hold PRODUCTION CONTROL TECHNOLOGIST atrovastatin and asa resumed - PRODUCTION CONTROL TECHNOLOGIST plavix on hold Echo pending to r/o infectious source ECG with sinus tachycardia Respiratory: RUL Pneumonia Date of Intubation: 10/17 Reason: Airway protection MMV: - CXR: - ABG: PRODUCTION CONTROL TECHNOLOGIST budesonide resumed - PaO2 goal >100, Spo2 goal >95%, PCO2 goal 35-40 torr, chest physiotherapy, bronchotherapy, PD& V q 6 hrs GI: OG verified - okay to use Feeding: NPO Bowel regimen, ensure daily BM Heme: 10/19 Hgb 9.8 Hct 29.4 Plt 299 INR 1.0 - Trend daily CBC Assess for coagulopathy, maintain platelets above 100k, INR <1.5 ID: Leukocytosis (mild); PNA; + Step pneumo bacteremia; Non-healing wounds on frequent Abx 10/19 WBC 13.0 Lactic acid 0.9 - Was 2.7 on admission to OSH 10/16 10/16 - blood cultures positive for strep pneumo. Sputum + yeast - Continued Rocephin 1gm QD and Fluconazole QD here from OSH. Repeat gatica cultures, fungal included, here Had been on outpatient treatments of cefdinir, clindamycin, doxycycline and bactrim between 08/17- 09/23. Trend daily CBC Tmax 36.9 Aim for normothermia, Temp <38.3 celsius, normothermia protocol if febrile Renal: 10/19 BUN 13 Cr 0.51 - Trend daily BMP Resolved MARGO from admit at OSH with Cr 1.10 10/16 No intake or output data in the 24 hours ending 10/19/18 2214 Aim for normovolemia Endocrine: Serum glucose 105 - Trend on daily BMP - Blood glucose goal 100-180mg/dl FEN: IVF: None 10/19 K 3.2 Mg 1.9 Phos 2.8 iCal 1.[address] Magnesium goal >2.0, i-Earl goal > 1.0, Potassium goal >4.0 mEq/L Prophylaxis Review: A)GI: [id number] B) Lines: Yes; Central Line; Indication: Frequent blood draws; Type: Internal jugular C) Urinary Catheter: Yes; Retain salomon due to: Need for accurate Intake and Output D) Antibiotic Usage: Yes; Infection present or suspected: Lung; Pneumonia E) VTE: Pharmacological prophylaxis; SQ Heparin and Mechanical prophylaxis; Sequential compression device F) Isolation: na G)Seizures: na I) Restraints: Patient assessed for need for restraints. Disposition/Family: Require ICU monitoring Primary service: NEICU Consults: None SUBJECTIVE Chief Complaint: Pneumonia and worsening mental status History of Present Illness: Etelvina Alonso is a 58 y.o. female with recent history of CABG in 07/2018 with non healing wounds from vein harvesting to her bilateral lower extremities. She has been on a host of outpatient antibiotics since the beginning of August. On 10/16 she presented to an OSH with a 2-3 day history of cough, pain at sternal incision and fever at home of 100.8. She endorsed pain with palpation to sternum at that time. She was admitted to the floor. On 10.17 her pulmonary status worsened, developed altered mental status and was transferred to ICU and subsequently intubated. CTA head performed on 10/19 demonstrated a small area of intraparenchymal air above the mastoid air cells and some edema around that area. With these finding and the patient's worsening condition, the OSH felt it necessary to facilitate transfer to [facility] for escalation of care. Past Medical History: Diagnosis Date CAD (coronary artery disease) Hyperlipidemia Hypertension, essential Non-healing wound of lower extremity Paroxysmal atrial fibrillation (HCC) Past Surgical History: Procedure Laterality Date HX CORONARY ARTERY BYPASS GRAFT No family history on file. Social History Social History Narrative Not on file Code Status: Full Code Decision Maker: Self, otherwise Nolan Immunizations (includes history and patient reported): There is no immunization history on file for this patient. Allergies: Patient has no allergy information on record. Medications Prior to Admission Medication Sig amiodarone (CORDARONE) 200 mg tablet Take 200 mg by mouth daily. Take with food. aspirin 81 mg chewable tablet Chew 81 mg by mouth daily. Take with food. atorvastatin (LIPITOR) 20 mg tablet Take 20 mg by mouth at bedtime daily. budesonide respule (PULMICORT) 0.5 mg/2 mL nebulizer solution Inhale 1 mg solution by nebulizer as directed twice daily. clopiDOGrel (PLAVIX) 75 mg tablet Take 75 mg by mouth daily. furosemide (LASIX) 20 mg tablet Take 20 mg by mouth every morning. HYDROcodone/acetaminophen (NORCO) 5/325 mg tablet Take 1 tablet by mouth every 6 hours as needed for Pain ipratropium/albuterol (COMBIVENT RESPIMAT) 20-100 mcg/actuation mist inhaler Inhale 1 puff by mouth into the lungs every 4 hours as needed. lisinopril (PRINIVIL; ZESTRIL) 5 mg tablet Take 5 mg by mouth daily. melatonin 3 mg tab Take 5 mg by mouth at bedtime daily. metoprolol XL (TOPROL XL) 25 mg extended release tablet Take 25 mg by mouth daily. nicotine (NICODERM CQ STEP 1) 21 mg/day patch Apply 1 patch to top of skin as directed every 24 hours. Rotate patch location. oxyCODONE/acetaminophen (PERCOCET; ENDOCET; ROXICET) 5/325 mg tablet Take 1 tablet by mouth every 6 hours as needed for Pain polyethylene glycol 3350 (MIRALAX) 17 g packet Take 17 g by mouth twice daily. potassium chloride SR (K-DUR) 20 mEq tablet Take 20 mEq by mouth daily. Take with a meal and a full glass of water. sertraline (ZOLOFT) 50 mg tablet Take 50 mg by mouth at bedtime daily. Review of Systems: Review of systems not obtained from patient due to patient factors. OBJECTIVE Vital Signs: Last Filed Vital Signs: 24 Hour Range Intensity Pain Scale (Self Report): (not recorded) There were no vitals filed for this visit. Artificial airway: Endotracheal Tube Ventilator/ Respiratory Therapy: Yes: Mode: MMV Set Vt (ml): [350 milliliters-400 milliliters] Tidal Volume Spont (mL): [313 milliliters-377 milliliters] Set RR: [14 breaths/minutes-16 breaths/minutes] Total Respiratory Rate (Breaths/Min): [23 breaths/minutes-39 breaths/minutes] Minute Volume (L/min): [9.07 liters/minutes-11.5 liters/minutes] O2%: [40 %-100 %] PIP Actual: [14 cm H20-25 cm H20] PEEP/CPAP: [5 cm H2O] PSupport: [5 cm H20] Vent weaning trial: Per protocol Lines: Central Line Drains: Salomon Catheter; Oralgastric tube Intake/Output Summary: (Last 24 hours) No intake or output data in the 24 hours ending 10/19/182128 Physical Exam: There were no vitals taken for this visit. [place] coma score: 7+T E: 2 - Opens eyes with pain M: 4 - Moves part of body but does not remove noxious stimulus V: 1 - Makes no noise FOUR score: E: 1 M: 3 BR: 4 Resp: 1 Neuro: Mental Status: Obtunded Cranial Nerves: - Pupil exam: Size: 3/3 Reactivity: Brisk BL - EOM: Intact - Corneal reflex: R - present L - present - Grimace/facial movement: present - Cough: present - Gag reflex: present Motor: Moves all extremities spontaneously and away from stimulus. Attempts to kick in direction of care technician. Sensory: appears intact Coordination: Deferred DTRs: 2/4 Gait: Deferred Lungs: clear in BL uppers, fine crackles in Bl bases Pulmonary: Mechanical ventilation Heart: regular rate and rhythm, S1, S2 normal, no murmur, click, rub or gallop Abdomen: soft, non-tender. Bowel sounds normal. No masses, no organomegaly Extremities: extremities normal, atraumatic, no cyanosis. Mild 1+, non-pitting dependent eyelid/facial edema, 1-2+ dependent edema in hands and feet. Skin: Skin color, texture, turgor normal. No rashes. Non healing leg wounds. Point of Care Testing: (Last 24 hours): Lab Review: Pertinent labs reviewed Radiology and Other Diagnostic Procedures Review: Pertinent radiologic and diagnostic procedures reviewed. I spent 70 minutes managing the care of this patient. Mrs. Alonso is critically ill with pneumonia, altered mental status and recent bacteremia. Cares included : detailed neurologic and systems exam, medication review, laboratory data review and interpretation, electrolyte management, review of available imaging, DVT/PE prophylaxis review, diet review, activity review, mechanical ventilation and sedation management, and coordination of care with consulted teams Lorena Rockwell, MSN,CRITICAL POWER INSTALL TECHNICIAN Date: 10/19/[phone] MATIC NAILING MACHINE FEEDER documented in this encounter Consult Notes * Olimpia Louise RN - 10/25/2018 12:30 PM CDT Associated Order(s): CONSULT WOUND/OSTOMY TEAM NURSE Wound Ostomy Note NAME:Etelvina Alonso :1960 AGE: 58 y.o. ADMISSION DATE: 10/19/2018 DAYS ADMITTED: LOS: 6 days Reason for Consult/Visit: pressure injury Stage II or greater Assessment/Plan: Active Problems: Pneumonia due to infectious organism Acute respiratory failure with hypoxia and hypercapnia (HCC) Altered mental status, unspecified Paroxysmal atrial fibrillation (HCC) Pressure Injury 10/24/18 0800 No Sacrum Stage 2 (Active) 10/24/18 0800 Pressure Injury Present On Inpatient Admission: N Pressure Injury Orientation: Wound Location: Sacrum Pressure Injury Stages: Stage 2 If this pressure injury is suspected to be device related, please select the device:: Wound Image 10/25/2018 12:30 PM Agree With My Assessment? Yes 10/25/2018 4:00 AM Wound Dressing Status Open to Air 10/25/2018 12:30 PM Wound Dressing and / or Treatment Criticaid Barrier Cream 10/25/2018 12:30 PM Wound Drainage Amount None 10/25/2018 12:30 PM Wound Base Assessment Moist;Red 10/25/2018 12:30 PM Surrounding Skin Assessment Intact;[place] 10/25/2018 12:30 PM Wound Status (Wound Team Only) Being Treated 10/25/2018 12:30 PM Wound Length (cm) 0.5 cm 10/25/2018 12:30 PM Wound Width (cm) 0.3 cm 10/25/2018 12:30 PM Wound Depth (cm) 0.1 cm 10/25/2018 12:30 PM Wound Surface Area (cm^2) 0.15 cm^2 10/25/2018 12:30 PM Wound Volume (cm^3) 0.02 cm^3 10/25/2018 12:30 PM Pt presents with a small stage 2 on her coccyx. Pt is currently on a Progressa bed, this is appropriate to continue. RECOMMEND: Please continue to apply Criticaid barrier cream to area BID and PRN soiling per greenhouse staff. Continue Q2hr turning schedule using foam wedge for support. Apply offloading boots to bilateral heels for additional pressure ulcer prevention. Will continue to follow. Olimpia Louise, RN, BSN, CMSRN, CWON Wound Ostomy Nursing Consult Service Office: [phone] Pager: [phone] After Hours Wound/Ostomy Team Pager: [phone] * Leah Pak PA-C - 10/25/2018 9:47 AM CDT Associated Order(s): CONSULT CARDIOTHORACIC SURGERY PHYSICIAN CTS CONSULT Date of Service: 10/25/2018 Requesting Physician: Lorena Rockwell MD Consulting Physician: Miguel Angel Odonnell MD Consult Performed By: Leah Pak PA-C HPI: Etelvina Alonso is a 58 y.o. female with history of HTN, HLD, no nhealing leg wounds, CAD s/p CABG in 07/2018 in [place] who presented to an OSH on 10/16 with shortness of breath and chest pains and found to have a RUL pneumonia. She was intubated on 10/17 2/2 worsening respiratory status and AMS. 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 Planning for repeat MRI head tomorrow. Failed ventilator weaning, becoming tachypneic RR>40. Pt intubated at time of exam. Responds intermittently to questions. No follow up after CABG with cardiology or PCP. Reports coughing with popping of sternum after surgery. Also reports smoking in PO phase. Sternal incision well healed. Bilateral LE with multiple sites of dehiscence. Cardiothoracic consultation has been requested to determine if sternal dehiscence as possible contributing factor of tachypnea. 10/23/18 JYOTSNA: There is a small echogenic mass on the coaptation line of the aortic valve. Appears to likely be associated with the left coronary cusp. A vegetation cannot be ruled out. 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 No stenosis. No regurgitation. Outside CT chest and XR images show dehiscence of sternum with loosening of 2 sternal wires. Impression: Active Hospital Problems Diagnosis Altered mental status, unspecified Pneumonia due to infectious organism Acute respiratory failure with hypoxia and hypercapnia (HCC) Plan: Dehiscence of sternum most likely occurred in the acute PO phase. Pt indicated the clicking noises started immediately after surgery. No signs of acute infection at sternal incision site. Multiple sites of wound dehiscence of LE - continue abx per ID. It is unlikely prolonged intubation and tachypnea are due to chronic sternal dehiscence. History of COPD, PNA and heavy smoking. The patient may benefit from plastics input. No surgical intervention is needed at this time. Plan discussed with Dr. Odonnell who agrees and will further evaluate. Leah Pak PA-C [phone] Past Medical History: Diagnosis Date Arthritis Asthma CAD (coronary artery disease) COPD (chronic obstructive pulmonary disease) (HCC) Depression Disruption or dehiscence of closure of sternum or sternotomy Edentulous 2017 Poor dentition Endometriosis Hyperlipidemia Hypertension, essential Non-healing wound of lower extremity Paroxysmal atrial fibrillation (HCC) Pneumothorax tripped over a [employer] toy, had a pneumothorax, had lung surgery in hospital at [facility] Restless leg syndrome Past Surgical History: Procedure Laterality Date HX CORONARY ARTERY BYPASS GRAFT HYSTERECTOMY OOPHORECTOMY ORTHOPEDIC SURGERY ligament repair in december 2017 VASCULAR SURGERY Medications: amiodarone (CORDARONE) tablet 200 mg 200 mg Per OG Tube QDAY aspirin chewable tablet 81 mg 81 mg Per OG Tube QDAY atorvastatin (LIPITOR) tablet 20 mg 20 mg Per OG Tube QHS budesonide respule (PULMICORT) nebulizer solution 1 mg 1 mg Inhalation BID cefepime (MAXIPIME) 2 g in sodium chloride 0.9% (NS) 100 mL IVPB (MB+) 2 g Intravenous Q8H* chlorhexidine gluconate (PERIDEX) 0.12 % solution 15 mL 15 mL Swish & Spit BID collagenase (SANTYL) topical ointment Topical BID docusate (COLACE) oral solution 100 mg 100 mg Per OG Tube BID fluconazole (DIFLUCAN) 200 mg/NS 100 mL IVPB 200 mg Intravenous Q24H* heparin (porcine) PF syringe 5,000 Units 5,000 Units Subcutaneous Q8H levETIRAcetam (KEPPRA) oral solution 500 mg 500 mg Feeding Tube BID metoprolol tartrate (LOPRESSOR) tablet 12.5 mg 12.5 mg Per OG Tube BID milk of magnesia (CONC) oral suspension 10 mL 10 mL Per OG Tube QDAY nicotine (NICODERM CQ STEP 1) 21 mg/day patch 1 patch 1 patch Transdermal QDAY( 21) oseltamivir (TAMIFLU) oral suspension 75 mg 75 mg Per NG tube BID pantoprazole(#) (PROTONIX) suspension 40 mg 40 mg Per NG tube QDAY(21) potassium chloride oral solution 20 mEq 20 mEq Per OG Tube QDAY potassium phosphate 20 mmol in dextrose 5% (D5W) 250 mL IVPB (CENTRAL LINE ONLY ) 20 mmol Intravenous ONCE senna/docusate (SENOKOT-S) solution 10 mL 10 mL Per OG Tube BID sertraline (ZOLOFT) tablet 50 mg 50 mg SEE ADMIN INSTRUCTIONS QHS No Known Allergies Family History Problem Relation Age of Onset Psoriasis Sister Heart Attack Sister maker 95% blocked s/p stenting Diabetes Sister Heart Disease Brother [place] in s, with several stents Social History Socioeconomic History Marital status: Spouse name: Leonidas Number of children: 2 Years of education: Not on file Highest education level: Not on file Occupational History Not on file Tobacco Use Smoking status: Heavy Tobacco Smoker Packs/day: 2.00 Years: 45.00 Pack years: 90.00 Types: Cigarettes Smokeless tobacco: Former User Substance and Sexual Activity Alcohol use: No Frequency: Never Drug use: Yes Types: Marijuana Sexual activity: Not on file Other Topics Concern Not on file Social History Narrative Has 2 children and 2 grandchildren Son lives in [place] She is , to Leonidas, for 30 years 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 Physical Exam: Temp: 37 C (98.6 F) (10/25 0800) Pulse: 76 (10/25 0807) Respirations: 28 PER MINUTE (10/25 806) BP: 107/57 (10/25 0800) GENERAL: Intubated. Shakes head in response to questions. Somnolent. HEENT Head: Normocephalic NECK Trachea: midline HEART Neck Veins- No JVD Carotid Arteries: No bruits Cardiac: RRR with normal S1, S2. No murmurs Previous sternotomy site well healed with no dehiscence. NTTP throughout. Chest moves uniformly throughout inspiration. LUNGS Auscultation- diminished BS Bilaterally, crackles. ABDOMEN Soft, NT + BS EXTREMITIES Edema- +1 edema BLE/BUE Bilateral incisions medial calf with multiple sites of dehiscence with purulent drainage. Results for orders placed or performed during the hospital encounter of (from the past 24 hour(s)) VANCOMYCIN TROUGH Collection Time: 10/24/18 9:56 AM # # Low-High Vancomycin Trough 11.8 10.0 - 20.0 MCG/ML MAGNESIUM Collection Time: 10/24/18 9:56 AM # # Low-High Magnesium 2.5 1.6 - 2.6 mg/dL POTASSIUM Collection Time: 10/24/18 9:56 AM # # Low-High Potassium 3.5 3.5 - 5.1 MMOL/L C DIFFICILE BY PCR Collection Time: 10/24/18 6:30 PM # # Low-High Battery Name C DIFFICILE PCR Specimen Description FECES Special Requests NONE C. Difficile Toxin B PCR NEGATIVE-wait 7 days to repeat test Report Status FINAL 10/25/2018 POC GLUCOSE Collection Time: 10/24/18 10:00 PM # # Low-High Glucose, POC 147 (H) 70 - 100 MG/DL IONIZED CALCIUM Collection Time: 10/25/18 3:19 AM # # Low-High Ionized Calcium 1.15 1.0 - 1.3 MMOL/L AMMONIA Collection Time: 10/25/18 3:19 AM # # Low-High Ammonia 50 (H) 9 - 35 MCMOL/L CBC AND DIFF Collection Time: 10/25/18 3:19 AM # # Low-High White Blood Cells 13.9 (H) 4.5 - 11.0 K/UL RBC 2.56 (L) 4.0 - 5.0 M/UL Hemoglobin 8.0 (L) 12.0 - 15.0 GM/DL Hematocrit 24.2 (L) 36 - 45 % MCV 94.8 80 - 100 FL MCH 31.2 26 - 34 PG MCHC 32.9 32.0 - 36.0 G/DL RDW 13.7 11 - 15 % Platelet Count 327 150 - 400 K/UL MPV 9.3 7 - 11 FL Neutrophils 81 (H) 41 - 77 % Lymphocytes 11 (L) 24 - 44 % Monocytes 6 4 - 12 % Eosinophils 2 0 - 5 % Basophils 0 0 - 2 % Absolute Neutrophil Count 11.30 (H) 1.8 - 7.0 K/UL Absolute Lymph Count 1.60 1.0 - 4.8 K/UL Absolute Monocyte Count 0.80 0 - 0.80 K/UL Absolute Eosinophil Count 0.20 0 - 0.45 K/UL Absolute Basophil Count 0.00 0 - 0.20 K/UL BASIC METABOLIC PANEL Collection Time: 10/25/18 3:19 AM # # Low-High Sodium 140 137 - 147 MMOL/L Potassium 3.8 3.5 - 5.1 MMOL/L Chloride 107 98 - 110 MMOL/L CO2 30 21 - 30 MMOL/L Anion Gap 3 3 - 12 Glucose 164 (H) 70 - 100 MG/DL Blood Urea Nitrogen 9 7 - 25 MG/DL Creatinine 0.36 (L) 0.4 - 1.00 MG/DL Calcium 7.9 (L) 8.5 - 10.6 MG/DL eGFR Non >60 >60 mL/min eGFR >60 >60 mL/min MAGNESIUM Collection Time: 10/25/18 3:19 AM # # Low-High Magnesium 2.2 1.6 - 2.6 mg/dL PHOSPHORUS Collection Time: 10/25/18 3:19 AM # # Low-High Phosphorus 1.6 (L) 2.0 - 4.5 MG/DL POC GLUCOSE Collection Time: 10/25/18 6:30 AM # # Low-High Glucose, POC 161 (H) 70 - 100 MG/DL POTASSIUM Collection Time: 10/25/18 8:15 AM # # Low-High Potassium 4.4 3.5 - 5.1 MMOL/L Associated attestation - Miguel Angel Odonnell MD - 10/25/2018 3:48 PM CDT I have reviewed the case and the note below by Ms. Pak and agree in regards to HPI past medical/surgical/social/family history, review of systems and exam. This is a 58-year-old female who has undergone coronary artery bypass grafting at an outside facility. She subsequently presented to a different facility with shortness of breath and chest pain. She was found to have pneumonia. She was subsequently intubated due to her worsening respiratory status. An extensive workup was undertaken and revealed pneumocephalus, possible temporal lobe abscess, cerebritis. She is also failed ventilator weaning since arriving at our institution. Prior to admission she was a dedicated tobacco user. I have personally reviewed the patient's available imaging studies and laboratory tests. Transesophageal echocardiogram reveals no significant pathology. There is per report a thickening at the coaptation point on the left coronary cusp which may represent fibroblastoma versus even possible vegetation. She has 2 broken sternal wires by x-ray as well as CT scan. She has some emphysema present on CT. There does not appear to be any associated abscess with her sternal nonunion. Per reports patient has had clicking since almost immediately postoperatively. This likely represents the time of her sternal dehiscence. 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 I do not feel that her sternal nonunion is a large contributing factor to her failure to wean from the vent. I believe that her continued ventilator dependence is more indicative of her underlying septic picture as well as her underlying pulmonary pathology. I would endorse her undergoing tracheostomy if necessary. With regards to her sternum, I would be happy to assist with exposure for reconstruction with plastic surgery involvement. I do not believe that there is any emergency to pursuing this at this time. If it truly is sterile sternal dehiscence then plating versus rewiring at that time can be considered. If it is ultimately deemed to be infected then further debridement and considerations will be necessary. Timing of this would be more appropriate once she is recovered from her acute processes including unable to wean from the ventilator. I spent 30 minutes in review of the patient's case and discussion of her situation with her critical care team. * Olimpia Louise, RN - 10/22/2018 11:30 AM CDT Associated Order(s): CONSULT WOUND/OSTOMY TEAM NURSE Wound Ostomy Note NAME:Etelvina Alonso :1960 AGE: 58 y.o. ADMISSION DATE: 10/19/2018 DAYS ADMITTED: LOS: 3 days Reason for Consult/Visit: wound not pressure Assessment/Plan: Active Problems: Pneumonia due to infectious organism Acute respiratory failure with hypoxia and hypercapnia (HCC) Altered mental status, unspecified Hx: 58 y.o. female with history of HTN, HLD, no nhealing leg wounds, CAD s/p CABG in 07/2018 who presented to an OSH on 10/16 with shortness of breath and hcest pains and found to have a RUL pneumonia. She was intubated on 3/6 2/2 worsening respiratory status and AMS. On 10/19, CTA with R temporal lobe intraparenchymal air and surrounding edema. Wounds (NOT for Pressure Injuries) 10/19/182329 Right Leg Surgical Incision ( Active) 10/19/182329 Leg Wound Orientation: Right Wound Type: Surgical Incision Wound Type:: Wound Description (Comments): Dehiscence from prior surgery Wound Image 10/22/2018 11:00 AM Agree With My Assessment? Yes 10/22/2018 12:00 PM Wound Base Assessment Dry;Eschar 10/22/2018 11:00 AM Surrounding Skin Assessment [place] 10/22/2018 11:00 AM Wound Site Closure Open to Air 10/22/2018 11:00 AM Wound Drainage Amount None 10/22/2018 11:00 AM Wound Dressing Status Open to Air 10/22/2018 11:00 AM Wound Length (cm) 2.5 cm 10/22/2018 11:00 AM Wound Width (cm) 1 cm 10/22/2018 11:00 AM Wound Depth (cm) 0.1 cm 10/22/2018 11:00 AM Wound Surface Area (cm^2) 2.5 cm^2 10/22/2018 11:00 AM Wound Volume (cm^3) 0.25 cm^3 10/22/2018 11:00 AM Number of days: 3 Wounds (NOT for Pressure Injuries) 10/19/182329 Left;Upper Leg Surgical Incision (Active) 10/19/182329 Leg Wound Orientation: Left;Upper Wound Type: Surgical Incision Wound Type:: Wound Description (Comments): Dehiscence from prior surgery Wound Image 10/22/2018 11:00 AM Agree With My Assessment? Yes 10/22/2018 12:00 PM Wound Base Assessment Dry;Eschar;[place]ak;[place] 10/22/2018 11:00 AM Surrounding Skin Assessment Intact 10/22/2018 11:00 AM Wound Site Closure Open to Air 10/22/2018 11:00 AM Wound Drainage Amount None 10/22/2018 11:00 AM Wound Dressing Status Open to Air 10/22/2018 11:00 AM Wound Length (cm) 2.5 cm 10/22/2018 11:00 AM Wound Width (cm) 1 cm 10/22/2018 11:00 AM Wound Depth (cm) 1 cm 10/22/2018 11:00 AM Wound Surface Area (cm^2) 2.5 cm^2 10/22/2018 11:00 AM Wound Volume (cm^3) 2.5 cm^3 10/22/2018 11:00 AM Number of days: 3 Wounds (NOT for Pressure Injuries) 10/19/18 Left;Inferior Leg Surgical Incision (Active) 10/19/18 Leg Wound Orientation: Left;Inferior Wound Type: Surgical Incision Wound Type:: Wound Description (Comments): Wound Image 10/22/2018 11:00 AM Wound Base Assessment Mak;Eschar 10/22/2018 11:00 AM Surrounding Skin Assessment Intact 10/22/2018 11:00 AM Wound Site Closure Open to Air 10/22/2018 11:00 AM Wound Drainage Amount None 10/22/2018 11:00 AM Wound Dressing Status Open to Air 10/22/2018 11:00 AM Wound Length (cm) 2.5 cm 10/22/2018 11:00 AM Wound Width (cm) 1 cm 10/22/2018 11:00 AM Wound Depth (cm) 0.1 cm 10/22/2018 11:00 AM Wound Surface Area (cm^2) 2.5 cm^2 10/22/2018 11:00 AM Wound Volume (cm^3) 0.25 cm^3 10/22/2018 11:00 AM Number of days: 3 Pt's presents with 2 wounds on her left inner leg from a dehisced surgical incision and 1 on her right inner leg. This surgery was done at an OSH. Pt is intubated and unable to provide a history. Pt will benefit from f/u with her surgeon after discharge. RECOMMEND: Clean with saline and gauze. Apply santyl - nickel thick (requires MD order) to wound bases, cover with dry gauze and secure with tape. Dressing changes daily per floor RN. Will continue to follow. --- Primary Team is responsible for approving and placing wound care orders. -- - Olimpia Louise RN, BSN, CMSRN, CWON Wound Ostomy Nursing Consult Service Office: [phone] Pager: [phone] After Hours Wound/Ostomy Team Pager: [phone] * Adrianne Valenzuela - 10/21/2018 10:29 AM CDT Associated Order(s): CONSULT DIETITIAN CLINICAL NUTRITION Clinical Nutrition Assessment Summary NAME:Etelvina Alonso :1960 AGE: 58 y.o. ADMISSION DATE: 10/19/2018 DAYS ADMITTED: LOS: 2 days Nutrition Assessment of Patient: BMI Categories Adult: Acceptable: 18.5-24.9 Malnutrition Assessment: (pending subjective information) Current Oral Intake: NPO Estimated Calorie Needs: 5912-0298 kcal(25-30 kcal/kg per present wt 52.8kg) Estimated Protein Needs: 53-66 gm(1.0-1.25 gm/kg per present wt 52.8kg) Oral Diet Order: NPO Current EN Order: Isosource 1.5 @ 50 ml/hr + 300 ml water bolus Q6hr. At goal would provide 1800 kcal, 82 gm protein and 2112 ml free water. Comments: Pt is a 58 yo female with hx of COPD, HTN, HLD, CAD s/p CABG in 07/2018 with non healing leg wounds who presented to an OSH on 10/16 with shortness of breath and chest pains and was found to have a RUL pneumonia. She was intubated on 10/17 secondary to worsening respiratory status and AMS. On 10/19, CTA showed R temporal lobe intraparenchymal air and surrounding edema. Transferred to [facility] for escalation of care. Pt remains intubated and sedated at this time. Receiving 343 kcal over 24hrs with current propofol rate. OGT in place. Dietitian consulted for EN recommendations. EN ordered, but not yet started. No family was present in room for diet/wt history. Pt appears thin with mild quadriceps muscle wasting. No weight hx available in EMR. No documented food allergies. Recommendation: With current rate of propofol, recommend Isosource 1.5 @ 35 ml/hr to provide 1260 kcal (1603 kcal with propofol), 57 gm protein and 638 ml free water. Additional fluids per primary. If propofol rate reduced or discontinued, would recommend Isosource 1.5 @ 40 ml/hr to provide 1440 kcal, 65 gm protein and 730 ml free water. Given unknown diet hx, recommend closely monitoring for refeeding syndrome. Rec'd correcting electrolyte abnormalities prior to EN initiation (note low K+ on this morning's labs). Rec'd initiating EN at 10-15 ml/hr and gradually advancing by 10 ml/hr Q8-10hrs until goal rate is reached. May also consider 100mg IV thiamin x 3-7 days for refeeding protection. If patient extubated, recommend diet textures per [employer] SAL[employer]OCIATE recs with eventual goal diet of Cardiac Intervention / Plan: Provided EN recs; will continue to assess EN adequacy/tolerance and adjust nutrition recs prn Will monitor wt trends, GI symptoms, labs, meds, I/Os Obtain subjective information as able Nutrition Diagnosis: Altered GI function Etiology: intubation/sedation Signs & Symptoms: NPO status with need for EN to meet nutritional needs Goals: Initiate nutrition(EN) Time Frame: Within 24 Hours EN tolerated and meeting >50% of nutritional needs Time Frame: Within [address], LD [phone] * Juvenal Gottlieb MD - 10/20/2018 7:01 PM [employer]EDER Associated Order(s): CONSULT OTOLARYNGOLOGY (ENT) PHYSICIAN Otolaryngology Consult Note: Admission Date: 10/19/2018 LOS: 1 day Assessment/Plan Etelvina Alonso is a 58 y.o. female with complex medical history including recent CABG with nonhealing wounds from her bilateral lower extremity vein harvest sites who was recently admitted to outside hospital for worsening cough and altered mental status. At the outside hospital, she was found to be bacteremic and there is concern for extremity wound infection as well as pneumonia. MRI imaging demonstrates cerebritis as well as questionable fluid collection versus edema. Additionally, there are multiple areas of skull base thinning versus dehiscence including the bilateral tegmen and a small right sphenoid wing encephalocele. The skull base lesions are likely related to benign intracranial hypertension. She has partial opacification of her mastoid and middle ear space bilaterally, but no erosive/coalescent mastoiditis is seen. Clinically, her ear exam does not show acute otitis media, but instead, serous effusions bilaterally. It is difficult to know whether these effusions are infectious in nature versus dependent edema secondary to lying flat while intubated. It is also possible that her effusions could be CSF given the skull base thinning. Nasal endoscopy did not demonstrate any purulence or signs of acute sinusitis. --No acute ENT surgical intervention at this time. Discussed with primary team the possibility of myringotomy with pressure equalizing tube placement, but given no clinical signs of acute infection and concern for possible CSF leak, we have decided to continue monitoring. --Agree with ID consultation and IV antibiotics. --We will discuss with neurosurgery team about any future procedures and determination of definitive surgical management. --Will discuss further with staff in regards to additionally recommendations Thank you for this consult, please call with additional questions. Juvenal Gottlieb MD Otolaryngology Resident, [id number] Reason for consult: Concern for otomastoiditis on imaging History of Present Illness: Etelvina Alonso is a 58 y.o. female with complex medical history which began and 2017 after a CABG which was performed in [facility]. The patient presented to outside hospital on October 16 in [facility] due to worsening sternal pain, cough and nonhealing wounds from bilateral vein harvesting site. She is initially admitted to the hospital and her pulmonary status and mental status worsened requiring a transfer to the ICU with intubation. CTA head was performed on October 19 and demonstrated pneumocephalus. The patient was then transferred to [facility] for escalation of care. During her current hospitalization she has remained intubated and further imaging including CT head, MRI head and CT IAC have been obtained. Based on these images there is concern for cerebritis as well as bilateral tegmen dehiscence and a right sphenoid wing encephalocele. The mastoid cavities were noted to be partially opacified and ENT was consulted due to concern for otomastoiditis. Patient is intubated and sedated and the majority of history is obtained by chart review. Past Medical History: Diagnosis Date Arthritis Asthma CAD (coronary artery disease) COPD (chronic obstructive pulmonary disease) (HCC) Depression Disruption or dehiscence of closure of sternum or sternotomy Edentulous 2016 Poor dentition Endometriosis Hyperlipidemia Hypertension, essential Non-healing wound of lower extremity Paroxysmal atrial fibrillation (HCC) Pneumothorax tripped over a [employer] toy, had a pneumothorax, had lung surgery in hospital [facility] Restless leg syndrome Past medical history was reviewed with the patient Past Surgical History: Procedure Laterality Date HX CORONARY ARTERY BYPASS GRAFT HYSTERECTOMY OOPHORECTOMY ORTHOPEDIC SURGERY ligament repair in december 2017 VASCULAR SURGERY Social History Socioeconomic History Marital status: Spouse name: Leonidas Number of children: 2 Years of education: Not on file Highest education level: Not on file Occupational History Not on file Tobacco Use Smoking status: Heavy Tobacco Smoker Packs/day: 2.00 Years: 45.00 Pack years: 90.00 Types: Cigarettes Smokeless tobacco: Former User Substance and Sexual Activity Alcohol use: No Frequency: Never Drug use: Yes Types: Marijuana Sexual activity: Not on file Other Topics Concern Not on file Social History Narrative Has 2 children and 2 grandchildren Son lives in [place] She is , to Leonidas, for 30 years 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 Scheduled Meds: amiodarone (CORDARONE) tablet 200 mg 200 mg Per OG Tube QDAY aspirin chewable tablet 81 mg 81 mg Per OG Tube QDAY atorvastatin (LIPITOR) tablet 20 mg 20 mg Per OG Tube QHS budesonide respule (PULMICORT) nebulizer solution 1 mg 1 mg Inhalation BID chlorhexidine gluconate (PERIDEX) 0.12 % solution 15 mL 15 mL Swish & Spit BID docusate (COLACE) oral solution 100 mg 100 mg Per OG Tube BID famotidine (PEPCID) injection 20 mg 20 mg Intravenous BID fluconazole (DIFLUCAN) 200 mg/NS 100 mL IVPB 200 mg Intravenous Q24H* furosemide (LASIX) tablet 20 mg 20 mg Per OG Tube QAM8 heparin (porcine) PF syringe 5,000 Units 5,000 Units Subcutaneous Q8H meropenem (MERREM) 2 g in sodium chloride 0.9% (NS) 140 mL IVPB 2 g Intravenous Q8H* metoprolol (LOPRESSOR) injection 2.5 mg 2.5 mg Intravenous Q6H* metoprolol tartrate (LOPRESSOR) tablet 12.5 mg 12.5 mg Per OG Tube BID milk of magnesia (CONC) oral suspension 10 mL 10 mL Per OG Tube QDAY nicotine (NICODERM CQ STEP 1) 21 mg/day patch 1 patch 1 patch Transdermal QDAY( 21) nystatin (MYCOSTATIN) oral suspension 500,000 Units 500,000 Units Oral QID potassium chloride oral solution 20 mEq 20 mEq Per OG Tube QDAY senna/docusate (SENOKOT-S) solution 10 mL 10 mL Per OG Tube BID sertraline (ZOLOFT) tablet 50 mg 50 mg SEE ADMIN INSTRUCTIONS QHS SODIUM CHLORIDE 0.9 % IV SOLP (Cabinet Override) NOW vancomycin (VANCOCIN) 750 mg in D5W 150mL IVPB (premade) 15 mg/kg Intravenous Q12H* Continuous Infusions: propofol (DIPRIVAN) 10 mg/mL IV infusion 30 mcg/kg/min (10/20/181599) PRN and Respiratory Meds:acetaminophen Q6H PRN, calcium gluconate IV PRN (Heating Operators Engineer from Rx) AND Ionized Calcium PRN AND Notify Physician Ongoing, fentaNYL citrate PF Q2H PRN, ipratropium/albuterol Q4H PRN, magnesium sulfate PRN AND Magnesium PRN AND Notify Physician Ongoing, oxyCODONE Q4H PRN, potassium chloride SR PRN OR potassium chloride PRN, [DISCONTINUED] vancomycin IVPB Q8H* AND vancomycin, pharmacy to manage Per Pharmacy Review of Systems: 12 point ROS conducted and negative except as noted in HPI. Vital Signs: Last Filed in 24 hours Vital Signs: 24 hour Range BP: 127/66 (10/20 1799) Temp: 37.3 C (99.2 F) (10/20 1600) Pulse: 107 (10/20 1799) Respirations: 21 PER MINUTE (10/20 1799) SpO2: 100 % (10/20 1799) O2 Delivery: Endotracheal Tube (Oral) (10/20 1800) SpO2 Pulse: 107 (10/20 1800) Height: 162.6 cm (64") (10/20 1010) BP: (91-144)/(47-83) Temp: [36.9 C (98.4 F)-38.3 C (100.9 F)] Pulse: [82-142] Respirations: [0 PER MINUTE-43 PER MINUTE] SpO2: [95 %-100 %] O2 Delivery: Endotracheal Tube (Oral) Physical Exam: General appearance: Etelvina is in no distress and is sedated Neuro: Facial grimace symmetric Head: normocephalic, atruamatic Eyes: PERRL, conjunctiva normal External ear: normal, no lesions or deformities Otoscopic: canals clear, tympanic membranes intact without retraction, serous effusions are noted bilaterally, there is no erythema or palpable fluctuance along either mastoid tip Hearing: Unable to be assessed External nose: no lesions or deformities, nares patent without drainage Nasal: mucosa and septum normal, CorPak on right Oral cavity: normal dentition, mucosa is moist, exam is limited by ET tube Neck: supple, without masses or lymphadenopathy Respiratory: normal respiratory effort Procedure: Nasal endoscopy The 30 Lucero marcial endoscope was inserted into the left nasal cavity. Mucosa was noted to be edematous. There is no polypoid degeneration noted. No purulence or mucosal irregularities were noted. The scope was then removed and inserted into the right nasal cavity and again the secretions were noted. Mucosal edema was again identified. There is no polypoid degeneration noted. No purulent material or mucosal lesions. The patient tolerated the procedure well without complications. Lab/Radiology/Other Diagnostic Tests: 24-hour labs: Results for orders placed or performed during the hospital encounter of (from the past 24 hour(s)) CBC AND DIFF Collection Time: 10/19/18 11:36 PM Result Value Ref Range White Blood Cells 13.0 (H) 4.5 - 11.0 K/UL RBC 3.11 (L) 4.0 - 5.0 M/UL Hemoglobin 9.8 (L) 12.0 - 15.0 GM/DL Hematocrit 29.4 (L) 36 - 45 % MCV 94.3 80 - 100 FL MCH 31.5 26 - 34 PG MCHC 33.4 32.0 - 36.0 G/DL RDW 14.6 11 - 15 % Platelet Count 299 150 - 400 K/UL MPV 8.6 7 - 11 FL Neutrophils 86 (H) 41 - 77 % Lymphocytes 10 (L) 24 - 44 % Monocytes 4 4 - 12 % Eosinophils 0 0 - 5 % Basophils 0 0 - 2 % Absolute Neutrophil Count 11.10 (H) 1.8 - 7.0 K/UL Absolute Lymph Count 1.30 1.0 - 4.8 K/UL Absolute Monocyte Count 0.60 0 - 0.80 K/UL Absolute Eosinophil Count 0.00 0 - 0.45 K/UL Absolute Basophil Count 0.00 0 - 0.20 K/UL PROTIME INR (PT) Collection Time: 10/19/18 11:36 PM Result Value Ref Range INR 1.0 0.8 - 1.2 COMPREHENSIVE METABOLIC PANEL Collection Time: 10/19/18 11:36 PM Result Value Ref Range Sodium 144 137 - 147 MMOL/L Potassium 3.2 (L) 3.5 - 5.1 MMOL/L Chloride 110 98 - 110 MMOL/L Glucose 105 (H) 70 - 100 MG/DL Blood Urea Nitrogen 13 7 - 25 MG/DL Creatinine 0.51 0.4 - 1.00 MG/DL Calcium 8.6 8.5 - 10.6 MG/DL Total Protein 5.4 (L) 6.0 - 8.0 G/DL Total Bilirubin 0.3 0.3 - 1.2 MG/DL Albumin 2.6 (L) 3.5 - 5.0 G/DL Alk Phosphatase 30 25 - 110 U/L AST (SGOT) 20 7 - 40 U/L CO2 28 21 - 30 MMOL/L ALT (SGPT) 6 (L) 7 - 56 U/L Anion Gap 6 3 - 12 eGFR Non >60 >60 mL/min eGFR >60 >60 mL/min LACTIC ACID(LACTATE) Collection Time: 10/19/18 11:36 PM Result Value Ref Range Lactic Acid 0.9 0.5 - 2.0 MMOL/L IONIZED CALCIUM Collection Time: 10/19/18 11:36 PM Result Value Ref Range Ionized Calcium 1.21 1.0 - 1.3 MMOL/L MAGNESIUM Collection Time: 10/19/18 11:36 PM Result Value Ref Range Magnesium 1.9 1.6 - 2.6 mg/dL PHOSPHORUS Collection Time: 10/19/18 11:36 PM Result Value Ref Range Phosphorus 2.8 2.0 - 4.5 MG/DL AMPHETAMINES-URINE RANDOM Collection Time: 10/19/18 11:36 PM Result Value Ref Range Amphetamines NEG NEG-NEG BARBITURATES-URINE RANDOM Collection Time: 10/19/18 11:36 PM Result Value Ref Range Barbiturates,Urine POS (A) NEG-NEG BENZODIAZEPINES-URINE RANDOM Collection Time: 10/19/18 11:36 PM Result Value Ref Range Benzodiazepines POS (A) NEG-NEG CANNABINOIDS-URINE RANDOM Collection Time: 10/19/18 11:36 PM Result Value Ref Range THC NEG NEG-NEG COCAINE-URINE RANDOM Collection Time: 10/19/18 11:36 PM Result Value Ref Range Cocaine-Urine NEG NEG-NEG OPIATES-URINE RANDOM Collection Time: 10/19/18 11:36 PM Result Value Ref Range Opiates-Urine NEG NEG-NEG PHENCYCLIDINES-URINE RANDOM Collection Time: 10/19/18 11:36 PM Result Value Ref Range Phencyclidine (PCP) NEG NEG-NEG BLOOD GASES, ARTERIAL Collection Time: 10/20/18 1:01 AM Result Value Ref Range pH-Arterial 7.32 (L) 7.35 - 7.45 pCO2-Arterial 58 (H) 35 - 45 MMHG pO2-Arterial 74 (L) 80 - 100 MMHG Base Excess-Arterial 2.6 MMOL/L O2 Sat-Arterial 92.5 (L) 95 - 99 % Jbzybtzgckk-LJE-Voc 26.7 21 - 28 MMOL/L CULTURE-RESP,LOWER W/SENSITIVITY Collection Time: 10/20/18 1:07 AM Result Value Ref Range Battery Name LOWER RESP CULTURE Specimen Description TRACHEAL ASPIRATE Special Requests NONE Direct Gram Stain LESS THAN 10/LPF NEUTROPHILS LESS THAN 10/LPF SQUAMOUS EPITHELIAL CELLS NO ORGANISMS SEEN Culture Report Status GRAM STAIN Collection Time: 10/20/18 1:07 AM Result Value Ref Range Battery Name GRAM STAIN Specimen Description TRACHEAL ASPIRATE Special Requests NONE Gram Stain LESS THAN 10/LPF NEUTROPHILS LESS THAN 10/LPF SQUAMOUS EPITHELIAL CELLS NO ORGANISMS SEEN Report Status FINAL 10/20/2018 CULTURE-WOUND/TISSUE/FLUID(AEROBIC ONLY)W/SENSITIVITY Collection Time: 10/20/18 1:28 AM Result Value Ref Range Battery Name ROUTINE CULTURE Specimen Description SWAB WOUND LEFT LEG Special Requests NONE Direct Gram Stain NO NEUTROPHILS SEEN NO ORGANISMS SEEN Culture Report Status GRAM STAIN Collection Time: 10/20/18 1:28 AM Result Value Ref Range Battery Name GRAM STAIN Specimen Description SWAB WOUND LEFT LEG Special Requests NONE Gram Stain NO NEUTROPHILS SEEN NO ORGANISMS SEEN Report Status FINAL 10/20/2018 BASIC METABOLIC PANEL Collection Time: 10/20/18 3:38 AM Result Value Ref Range Sodium 146 137 - 147 MMOL/L Potassium 3.9 3.5 - 5.1 MMOL/L Chloride 112 (H) 98 - 110 MMOL/L CO2 28 21 - 30 MMOL/L Anion Gap 6 3 - 12 Glucose 142 (H) 70 - 100 MG/DL Blood Urea Nitrogen 13 7 - 25 MG/DL Creatinine 0.50 0.4 - 1.00 MG/DL Calcium 8.7 8.5 - 10.6 MG/DL eGFR Non >60 >60 mL/min eGFR >60 >60 mL/min CBC AND DIFF Collection Time: 10/20/18 3:38 AM Result Value Ref Range White Blood Cells 14.2 (H) 4.5 - 11.0 K/UL RBC 3.00 (L) 4.0 - 5.0 M/UL Hemoglobin 9.4 (L) 12.0 - 15.0 GM/DL Hematocrit 28.4 (L) 36 - 45 % MCV 94.5 80 - 100 FL MCH 31.4 26 - 34 PG MCHC 33.3 32.0 - 36.0 G/DL RDW 14.7 11 - 15 % Platelet Count 291 150 - 400 K/UL MPV 8.5 7 - 11 FL Neutrophils 89 (H) 41 - 77 % Lymphocytes 8 (L) 24 - 44 % Monocytes 3 (L) 4 - 12 % Eosinophils 0 0 - 5 % Basophils 0 0 - 2 % Absolute Neutrophil Count 12.70 (H) 1.8 - 7.0 K/UL Absolute Lymph Count 1.10 1.0 - 4.8 K/UL Absolute Monocyte Count 0.40 0 - 0.80 K/UL Absolute Eosinophil Count 0.00 0 - 0.45 K/UL Absolute Basophil Count 0.00 0 - 0.20 K/UL PHOSPHORUS Collection Time: 10/20/18 3:38 AM Result Value Ref Range Phosphorus 3.0 2.0 - 4.5 MG/DL MAGNESIUM Collection Time: 10/20/18 3:38 AM Result Value Ref Range Magnesium 2.6 1.6 - 2.6 mg/dL IONIZED CALCIUM Collection Time: 10/20/18 3:38 AM Result Value Ref Range Ionized Calcium 1.22 1.0 - 1.3 MMOL/L BLOOD GASES, ARTERIAL Collection Time: 10/20/18 3:49 AM Result Value Ref Range pH-Arterial 7.41 7.35 - 7.45 pCO2-Arterial 47 (H) 35 - 45 MMHG pO2-Arterial 99 80 - 100 MMHG Base Excess-Arterial 3.9 MMOL/L O2 Sat-Arterial 97.7 95 - 99 % Vhzfhwdaskj-RIT-Iiu 27.9 21 - 28 MMOL/L ACETAMINOPHEN LEVEL Collection Time: 10/20/18 11:17 AM Result Value Ref Range Acetaminophen <10.0 <20.1 MCG/ML POTASSIUM Collection Time: 10/20/18 11:17 AM Result Value Ref Range Potassium 4.0 3.5 - 5.1 MMOL/L AMMONIA Collection Time: 10/20/18 3:57 PM Result Value Ref Range Ammonia 76 (H) 9 - 35 MCMOL/L LIVER FUNCTION PANEL Collection Time: 10/20/18 3:57 PM Result Value Ref Range Total Bilirubin 0.3 0.3 - 1.2 MG/DL Bilirubin, Direct <0.1 <0.4 MG/DL Albumin 2.6 (L) 3.5 - 5.0 G/DL Alk Phosphatase 33 25 - 110 U/L AST (SGOT) 26 7 - 40 U/L ALT (SGPT) 9 7 - 56 U/L Total Protein 5.7 (L) 6.0 - 8.0 G/DL Pertinent radiology reviewed. Mri Head Wo/w Contrast Addendum Date: 10/20/2018 Finalized by Mayank Price M.D. on 10/20/2018 4:09 PM. Dictated by Abiel Don M.D. on 10/20/2018 2:33 PM.Addendum: Dr. Don discussed these findings with Raquel Owusu APRN, by telephone 10/20/2018 4:39 PM. Approved by Abiel Don M.D. on 10/20 4:40 PM By my electronic signature, I attest that I have personally reviewed the images for this examination and formulated the interpretations and opinions expressed in this report Finalized by Mayank Price M.D. on 10/20/2018 4: 43 PM. Dictated by Abiel Don M.D. on 10/20/2018 4:39 PM. Result Date: 10/20/2018 EXAM: MRI BRAIN (SKULL BASE PROTOCOL) HISTORY: 58-year-old female, altered mental status. TECHNIQUE: Multiplanar and multisequence MR imaging of the head was performed. This was done both before and after the administration of MultiHancecontrast. COMPARISON: Same-day CT head and IACs. FINDINGS: Multiple sequences are degraded by repetitive motion artifact. The known areas of tegmen thinning and dehiscence are demonstrated on previous CT exams. There is an ovoid focus of restricted diffusion within the right temporal lobe measuring up to 1.3 cm with associated FLAIR hyperintensity (series 6, image 31 and series 18 , image 8) and partial rim enhancement. Mild surrounding FLAIR hyperintensity is noted. Small foci of increased DWI and ADC signal (T2 shine through) are seen within the right centrum semiovale (series 6, images 40 and 41) compatible with subacute to chronic lacunar infarct. No evidence of acute ischemic infarct. Additional minimal foci of FLAIR hyperintensity in the cerebral white matter, likely age-appropriate. The ventricles are normal in size. There is abnormal FLAIR hyperintensity dependently layering bilaterally within the occipital horns of the lateral ventricles with associated restricted diffusion. Redemonstration of diffuse arachnoid pits with visualization of a small right anterior middle cranial fossa/sphenoid wing encephalocele (series 12 image 34, series 14 image 21). Nearly empty sella appearance is again noted. There is a thin left posterior cerebral convexity FLAIR hyperintense fluid collection which demonstrates restricted diffusion (series 6, image 33). There is associated thin dural enhancement along the left temporal and lateral cerebral convexity. The central intracranial arterial flow voids are preserved. Dedicated skull base thin section T2 sequence is essentially nondiagnostic due to motion. Bilateral mastoid and middle ear effusions with associated enhancement. Diffuse paranasal sinus mucosal thickening and secretions with moderate air-fluid levels in the maxillary sinuses which demonstrate diffusion restriction. Dependent fluid noted within the nasopharynx and oropharynx with partially visualized endotracheal tube. Diffuse symmetric prominence and ill- defined edema within the parotid, submandibular, and sublingual glands with associated enhancement. The globes and orbits are grossly unremarkable, although , partially obscured due to motion on axial imaging. 1. Ovoid focus of diffusion restriction and partial rim enhancement in the basal right temporal lobe overlying the tegmen suggestive of focal cerebritis and developing abscess. 2. Dependent diffusion restricting material within the lateral ventricles suspicious for ventriculitis. 3. Thin complex left posterolateral convexity subdural fluid collection with diffusion restriction suggestive of thin subdural empyema. 4. Redemonstration of bilateral mastoid and middle ear effusions with associated enhancement compatible with otomastoiditis. Diffuse acute-appearing paranasal sinusitis. Areas of tegmen thinning and dehiscence are better demonstrated on comparison CTs. 5. Redemonstration of extensive arachnoid pits with interval visualization of a small right sphenoid wing encephalocele. Given partially empty sella appearance , findings may represent chronic intracranial hypertension. 6. Diffuse symmetric prominence, ill-defined edema, and enhancement of the salivary glands suggestive of sialoadenitis. By my electronic signature, I attest that I have personally reviewed the images for this examination and formulated the interpretations and opinions expressed in this report Ct Head Wo Contrast Result Date: 10/20/2018 CT HEAD WITHOUT CONTRAST HISTORY: 58 years [...] air cells. High-density structures over both globes. 1. Right inferior temporal lobe parenchymal edema [...] RAYMOND ALEJANDRO M.D. on 10/20/2018 7:49 AM. Patient Active Problem List Diagnosis Date Noted Altered mental status, unspecified 10/20/2018 Pneumonia due to infectious organism 10/19/2018 Acute respiratory failure with hypoxia and hypercapnia (HCC) 10/19/2018 Associated attestation - Jerome Lindsay MD - 10/21/2018 3:44 PM CDT ATTESTATION I personally performed the cardenas portions of the E/M visit, discussed case with resident and concur with resident documentation of history, physical exam, assessment, and treatment plan unless otherwise noted. Staff name: Jerome Lindsay MD Date: 10/21/2018 Patietn seen and examined. there. Logn complciated history reviewed. MS changes last Monday and then itnubated [facility] anil. Tx for multiple medicla issues. COncern on imaging for possible tegmen dehgiscence and left cerebral empyema ?NS doubts and cerebritis on R and fluid R>L ME and sphenoid encephalocele. Also active influenza and poor healing wounds s/p CABG in [place]. Scans reviewed Alert, NAD Head: Normocephalic/atraumatic intubated Ears: AU Auricles without lesions, EAC clear AU, TMs with reported R serous effusion non bulging and no sig inflammation. Eyes: PERRL, conjunctiva clear Nose: Externally without lesions, septum midline, no visible lesions via anterior rhinoscopy OC/OP: Teeth in good repair, tongue midlinet, no mass or mucosal lesions in OC or OP visibly or palpably, tonsils symmetric, Oral ETT Larynx: , normal external landmarks Neck: No neck mass or adenopathy, no palpable thyroid masses, no cutaneous changes diamond grader: Could not test due to sedation Probable LISBET from oral ETT and dependent position. Doubt related to intracranial process, worse on AD and left has the poss empyema. NS wants to watch apparently and will monitor w them. Pass to neurotology tomororw. Hold on PE Tubes for now since probable not the etiology. Cont medical management. * Benny Sepulveda MD - 10/20/2018 9:48 AM AUTOMATIC NAILING MACHINE FEEDER Associated Order(s): CONSULT INFECTIOUS DISEASES PHYSICIAN Infectious Diseases Initial Consult Today's Date: 10/20/2018 Admission Date: 10/19/2018 Assessment: Strep pneumo bacteremia Bilateral LE wounds due to CABG vein harvest, both tracking deep, L with purulent drainage Pneumocephalus with surrounding edema on CTA head 10/19/18 at OSH Possible HCAP Acute hypoxic/hypercarbic respiratory failure -Past concern for biliateral LE wound infection as below -10/16 presented to [facility] with a few days of fever, cough -10/16/18: BC x 2 Strep Pneumo R- Clindamycin and erythromcyin S: ceftriaxone ( MARCY 0.094), PCN (MARCY 0.064), levo, TMP/S, vanc. Rapid Flu Ag negative. MRSA nasal screen negative. 10/17/18: Sputum culture: Yeast and normal chelsey -Rapid mental status deterioration, intubated -CTA head 10/19/18 at OSH, small area of intraparenchymal air above the mastoid air cells and some edema around that area, with concern for possible infection. Pt was transferred to for further management -10/19: CXR patchy mixed alveolar and interstitial opacities -10/20: Tracheal aspirate: < 10 PMN, < 10 squam, no orgs. Cx pending -10/20: LLE swab: GS no orgs no PMNs. Cx pending Concern for bilateral LE wound infection, [facility] Bilateral vein harvest sites on lower extremities from CABG in [facility], 07/2018 Multiple cultures in [facility]. 09/07/18- Culture from R leg incision - Staph aureus MSSA, enterobacter cloace. 09/19/18 L leg pseudomonas R-Aztreonam, sensitive Throat August and early September 2018 patient received courses of cefdinir, clindamycin, doxycycline, and trimethoprim/sulfa of unclear duration. CAD s/p CABG in 07/2018 Possible sternal instability -On admission to possible sternal instability noted, not mentioned on imaging reports at or OSH -TTE 10/20/18: LVEF 35-40%, Mid To Distal Anteroapical Severe Hypokinesis To Akinesis, anterior mitral valve prolapse, moderate posterior lateral jet MV regurg HTN Depression Possible overdose prior to 10/16 admission -gabapentin, APAP/caffeine/butalbital H/o previous LE rash that improved after CABG Recommendations: -Agree with Vancomycin 10-15 trough goal, pharmacy to assist (based on the PCN S of the S pneumo could stop, but would maintain for now for LE wound infection coverage) -Would stop ampicillin, ceftriaxone and start Meropenem 2g IV q8 -Continue Fluconazole for thrush for now, would stop nystatin. Once extubated/ tolerating PO if still needed would change back to nystatin. -Review chest imaging with radiology (had CT at OSH, imaging in PACS), if any s /o sternal instability would consult CTS. If not would defer CTS consult to primary team. -Would obtain CT of bilateral LE's with contrast, wounds track. If fluid collections or s/o necrotizing infection present will need surgical consultation. -Follow MRI of brain, if MRI findings don't make LP contraindicated would obtain : cell count, glucose, TP, GS and bacterial cultures -Will follow pending blood, wound cultures. -Would obtain RVP, possible that influenza led to S pneumoniae infection Will discuss with staff, Dr. Sepulveda Thank you for this consult, we will continue to follow I have seen, personally evaluated, and discussed the patient's care with Dr. Spann, Infectious Diseases Fellow. I agree with the subjective notations, objective findings and agree with the plan of care as documented in this note with edits made by me as necessary. Please note that the consultation has been extensively edited from the original version. Benny Sepulveda MD Automation Engineering Technician Division of Infectious Diseases D/W OLIVER attending, Dr. Zelaya History of Present Illness Etelvina Alonso is a 58 y.o. Female PMH significant for CABG [facility] in 07/2018 who presented to an [facility] after noting worsening cough and stenral pain from recent sternotomy. Records from the ER indicate patient was having an cough for several days, and was having a fever. Workup was started including Lactic acid-2.72->2.92 within 2 hours. WBC-13.6 with 95% neutrophils. Creat-1.1, UA had 0-2 WBCs. Sister states patient's mental rapidly deteroiated and began to try take her clothes off. Pt was intubated for airway protection as well as respiratory fail. Pt was started on cefepime, and had chest imaging which was concerning for possible PNA. HIV was negative. Pt was switched to ceftriaxone, however continued to worsen. CTA head was done on which demonstrated a small area of intraparenchymal air above the mastoid air cells and some edema around that area, with concern for possible infection. Pt was transferred to for further management Past medical history and previous information was obtained from his sister. This includes the following: In the past,Pt would have a large red rash all over her legs. This rash maintained until her CABG, where posterior CABG the rash disappeared. The rash looked like "ugly raw red rash" and had seen akbar fonseca for this medication. Notes from the outside hospital indicated that patient received prednisone around September. Family indicates that she was also given prednisone for torn ligaments that she had received surgery for in December. Whenever she is given prednisone, patient would be noted to be upset and would say that prednisone makes her rash worse, and post predisone she had ugly blisters that worsened. Present on these rashes were present on the anterior aspects of both of her shins, no higher than than her knees. She had them since aug 2016 at least. Sister also states that patient has been more depressed lately. She has had issues with depression in the past and was hospitalized. Sister notes that she took 80 tablets of gabapentin as well as APAP/caffeine/butalbital, and possibly other pain relievers within the last 5 days prior to admission Cultures from [facility]: Blood culture 10/16 x2: Strep Pneumo R- Clindamycin and erythromcyin Susceptible: ceftriaxone-dilut method 0.094, levofloxacin, penicillin e-dilut method 0.064, trimethoprim, and vancomycin Sputum culture endotrachael 10/17: Yeast and normal chelsey Urine culture 10/16 NGTD Flu rapid- Negative MRSA nasal screen- negative WBC 10/16/18 13.9->10/17/18 5:40 9.3-> 12/17/18 14:30 9.3-> 10/18/18 3:37 7.2-> 10/19/18 3 :16 8.3 08/13/18 Loretta glabrata and dublinesis in sputum 09/07/18- Culture from R leg incision- Staph aureus MSSA, enterobacter cloace 09/19/18 L leg pseudomonas R-Aztreonam, sensitive PCP: Akbar fonseca [phone] Sister demetra Antimicrobial Start date End date Cefepime 300 mg PO BID 10/16/18 10/18/18 Ceftriaxone 10/18/18 10/20/18 Cefedinir 09/23/18 PRODUCTION CONTROL TECHNOLOGIST, uncertain timeframe Doxycycline 100 mg PO BID 09/06/18 PRODUCTION CONTROL TECHNOLOGIST, uncertain timeframe [id number] mg PO BID 08/23/18 PRODUCTION CONTROL TECHNOLOGIST, uncertain timeframe Fluconazole 150 mg PO QD 08/17/18 PRODUCTION CONTROL TECHNOLOGIST, uncertain timeframe Vancomycin 10/20/18 active Ampicillin 10/20/18 10/20/18 Fluconazole 10/20/18 active Meropenem 10/20/18 active Bactrim 08/17/18 PRODUCTION CONTROL TECHNOLOGIST, uncertain timeframe Estimated Creatinine Clearance: 75.6 mL/min (based on SCr of 0.5 mg/dL). Past Medical History Past Medical History: Diagnosis Date Arthritis Asthma CAD (coronary artery disease) COPD (chronic obstructive pulmonary disease) (HCC) Depression Disruption or dehiscence of closure of sternum or sternotomy Edentulous 2016 Poor dentition Endometriosis Hyperlipidemia Hypertension, essential Non-healing wound of lower extremity Paroxysmal atrial fibrillation (HCC) Pneumothorax tripped over a [employer] toy, had a pneumothorax, had lung surgery in hospital [facility] Restless leg syndrome Past Surgical History Past Surgical History: Procedure Laterality Date HX CORONARY ARTERY BYPASS GRAFT HYSTERECTOMY OOPHORECTOMY ORTHOPEDIC SURGERY ligament repair in december 2017 VASCULAR SURGERY Social History Social History Socioeconomic History Marital status: Spouse name: Leonidas Number of children: 2 Years of education: Not on file Highest education level: Not on file Social Needs Financial resource strain: Not on file Food insecurity - worry: Not on file Food insecurity - inability: Not on file Transportation needs - medical: Not on file Transportation needs - non-medical: Not on file Occupational History Not on file Tobacco Use Smoking status: Heavy Tobacco Smoker Packs/day: 2.00 Years: 45.00 Pack years: 90.00 Types: Cigarettes Smokeless tobacco: Former User Substance and Sexual Activity Alcohol use: No Frequency: Never Drug use: Yes Types: Marijuana Sexual activity: Not on file Other Topics Concern Not on file Social History Narrative Has 2 children and 2 grandchildren Son lives in [place] She is , to Leonidas, for 30 years 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, 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[facility], 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 Pets: Cat Family History Family History Problem Relation Age of Onset Psoriasis Sister Heart Attack Sister maker 95% blocked s/p stenting Diabetes Sister Heart Disease Brother [place] in s, with several stents Allergies No Known Allergies Review of Systems Unable to be obtained, patient is intubated and not able to answer questions Medications Scheduled Meds: amiodarone (CORDARONE) tablet 200 mg 200 mg Per OG Tube QDAY aspirin chewable tablet 81 mg 81 mg Per OG Tube QDAY atorvastatin (LIPITOR) tablet 20 mg 20 mg Per OG Tube QHS budesonide respule (PULMICORT) nebulizer solution 1 mg 1 mg Inhalation BID chlorhexidine gluconate (PERIDEX) 0.12 % solution 15 mL 15 mL Swish & Spit BID docusate (COLACE) oral solution 100 mg 100 mg Per OG Tube BID famotidine (PEPCID) injection 20 mg 20 mg Intravenous BID FENTANYL CITRATE (PF) 50 MCG/ML IJ SOLN (Cabinet Override) NOW fluconazole (DIFLUCAN) 200 mg/NS 100 mL IVPB 200 mg Intravenous Q24H* furosemide (LASIX) tablet 20 mg 20 mg Per OG Tube QAM8 heparin (porcine) PF syringe 5,000 Units 5,000 Units Subcutaneous Q8H meropenem (MERREM) 2 g in sodium chloride 0.9% (NS) 140 mL IVPB 2 g Intravenous Q8H* metoprolol tartrate (LOPRESSOR) tablet 12.5 mg 12.5 mg Per OG Tube BID milk of magnesia (CONC) oral suspension 10 mL 10 mL Per OG Tube QDAY nicotine (NICODERM CQ STEP 1) 21 mg/day patch 1 patch 1 patch Transdermal QDAY( 21) nystatin (MYCOSTATIN) oral suspension 500,000 Units 500,000 Units Oral QID potassium chloride oral solution 20 mEq 20 mEq Per OG Tube QDAY senna/docusate (SENOKOT-S) solution 10 mL 10 mL Per OG Tube BID sertraline (ZOLOFT) tablet 50 mg 50 mg SEE ADMIN INSTRUCTIONS QHS SODIUM CHLORIDE 0.9 % IV SOLP (Cabinet Override) NOW vancomycin (VANCOCIN) 1,000 mg in sodium chloride 0.9% (NS) 250 mL IVPB ( [id number]) 1 g Intravenous ONCE Followed by vancomycin (VANCOCIN) 750 mg in D5W 150mL IVPB (premade) 15 mg/kg Intravenous Q12H* Continuous Infusions: propofol (DIPRIVAN) 10 mg/mL IV infusion 20 mcg/kg/min (10/20/18 1040) PRN and Respiratory Meds:acetaminophen Q6H PRN, calcium gluconate IV PRN (Heating Operators Engineer from Rx) AND Ionized Calcium PRN AND Notify Physician Ongoing, fentaNYL citrate PF Q2H PRN, ipratropium/albuterol Q4H PRN, magnesium sulfate PRN AND Magnesium PRN AND Notify Physician Ongoing, oxyCODONE Q4H PRN, potassium chloride SR PRN OR potassium chloride PRN, [DISCONTINUED] vancomycin IVPB Q8H* AND vancomycin, pharmacy to manage Per Pharmacy Physical Examination Vital Signs: Last Vital Signs: 24 Hour Range BP: 133/75 (10/20 1100) Temp: 38.3 C (100.9 F) (10/20 0800) Pulse: 120 (10/20 1100) Respirations: 22 PER MINUTE (10/20 1100) SpO2: 98 % (10/20 1100) O2 Delivery: Endotracheal Tube (Oral) (10/20 1100) SpO2 Pulse: 119 (10/20 1100) Height: 162.6 cm (64") (10/20 1010) BP: (91-144)/(54-83) Temp: [36.9 C (98.4 F)-38.3 C (100.9 F)] Pulse: [82-142] Respirations: [17 PER MINUTE-43 PER MINUTE] SpO2: [95 %-100 %] O2 Delivery: Endotracheal Tube (Oral) General appearance: Intubated, sedated HEENT: endotrachial Tube in place, noted white patches on tongue, pupils unequal dilation, no icteric sclera Lungs: no wheezing, rhonchi throughout Chest: Sternotomy scar noted with appropriate healing, noted fluctuance underlying skin with paroxysmal movement of the chest concerning with each breath Heart: tachycardiac, no murmurs Abdomen: soft, non-tender, non-distended Extremities: LLE medial wound from vein harvest with erythema, purulent discharge, induration with deep tracking. RLE medial wound less pronounced induration, no drainage, mild erythema, does track deep. Both wounds partially healed. Lines: R IJ CVC Salomon ETT PIV Lab Review Hematology Recent Labs 10/19/18233510/20/18 0338 WBC 13.0* 14.2* HGB 9.8* 9.4* HCT 29.4* 28.4* PLTCT 299 291 INR 1.0 -- Chemistry Recent Labs 10/19/18233510/20/18 0338 NA 144 146 K 3.2* 3.9 CL 110 112* CO2 28 28 BUN 13 13 CR 0.51 0.50 GFR >60 >60 GLU 105* 142* CA 8.6 8.7 PO4 2.8 3.0 ALBUMIN 2.6* -- ALKPHOS 30 -- AST 20 -- ALT 6* -- TOTBILI 0.3 -- Microbiology, Radiology and other Diagnostics Review Microbiology data reviewed. Pertinent radiology images viewed. The patient is critically ill with concern for Acute hypoxic/hypercarbic resp failure, S pneumo bacteremia, possible DEPUTY COURT infection, BLE infections. I spent 50 minutes personally reviewing the patient's vital signs, critical care flowsheets, labs, imaging studies, and clinical status, as well as examining the patient and providing recommendations regarding management including further diagnostic testing and antimicrobial therapy. MATIC NAILING MACHINE FEEDER documented in this encounter ED Notes * Sydni Corcoran RN - 11/03/2018 2:17 PM CDT Report given to [facility] and [facility] transport. All pt belongings in the care of . documented in this encounter Miscellaneous Notes * Case Mgmt DC Misa Plascencia - 11/03/2018 12:26 PM CDT DESIGN TECHNOLOGY PROFESSOR NOTE Transfer packet delivered to pt's chart unit per the request of Shelby Espitia [facility]. Misa Herman CMA * Case Mgmt DC Shelby Drummond - 11/03/2018 10:21 AM CDT Case Management Progress NoteNAME:Etelvina Alonso :1960 AGE: 58 y.o. ADMISSION DATE: 10/19/2018 DAYS ADMITTED: LOS: 15 days Todays Date: 11/03/2018 Plan D/C today to [facility] via [facility] at 1400 Interventions ? Support Support: Pt/Family Updates re:POC or DC Plan ? Info or Referral ? Discharge Planning [facility] ? Medication Needs ? Financial ? Legal ? Other Disposition ? Expected Discharge Date Expected Discharge Date: 11/03/18 Expected Discharge Time: 1400 ? Transportation Does the patient need discharge transport arranged?: Yes Transportation Name, Phone and Availability #1: ambulance Does the patient use Medicaid Transportation?: No ? Next Level of Care (Acute Psych discharges only) ? Discharge Disposition W/E SHORTY reviewed EMR and discussed POC with team, per team pt stable for d/c. SHORTY spoke with Jessica [phone] in admissions with [facility] who verified facility is able to accept pt today. Jessica would like for [facility] to transport pt from [facility] at 1400. SHORTY spoke with pt's spouse Leonidas [phone] who verified he is aware of d/c plan for today and does not have any questions regarding d/c plan. SHORTY spoke with [facility] and arranged Vent transport with heart monitoring (per MD d/t concern for tachycardia) for 1400. SHORTY made RN and team aware of final d/c plan. SHORTY tasked DESIGN TECHNOLOGY PROFESSOR to create transfer packet. SHORTY completed PCS form. SW to fax d/c orders to [phone] once completed. RN please call report to [phone]. Durable Medical Equipment No service has been selected for the patient. Destination - Selection Complete Service Provider Request Status Selected Services Address Phone Number Fax Number [facility] [address] [facility] [address] [phone] Home Care No service has been selected for the patient. Dialysis/Infusion No service has been selected for the patient. Shelby Espitia LMSW P: [phone] * Case Mgmt DC Plan - Shelby Falcon - 11/02/2018 2:39 PM CDT Case Management Progress NoteNAME:Etelvina Alonso :1960 AGE: 58 y.o. ADMISSION DATE: 10/19/2018 DAYS ADMITTED: LOS: 14 days Todays Date: 11/02/2018 Plan Discharge to [facility] 11/03/2018 at 2pm via [facility] ambulance transport. Interventions ? Support Support: Pt/Family Updates re:POC or DC Plan ? Info or Referral ? Discharge Planning Discharge Planning: [facility] Covering discussed pt with team. Pt is on a vent, however is able to discharge to [facility] on vent. [facility] has received insurance authorization and will be able to accept pt at 2pm on 11/03/18. Sw notified team and spouse of anticipated discharge date/time. Sw spoke with attending. Attending would like to monitor pt overnight before securing transportation. Weekend SW to confirm with team in the morning that pt can discharge, arrange transportation, and deliver a transfer packet. Spouse should be in room visiting pt. ? Medication Needs ? Financial ? Legal ? Other Disposition ? Expected Discharge Date Expected Discharge Date: 11/03/18 Expected Discharge Time: 1400 ? Transportation Does the patient need discharge transport arranged?: Yes Transportation Name, Phone and Availability #1: ambulance Does the patient use Medicaid Transportation?: No ? Next Level of Care (Acute Psych discharges only) ? Discharge Disposition Durable Medical Equipment No service has been selected for the patient. Destination - Selection Complete Service Provider Request Status Selected Services Address Phone Number Fax Number [facility] [address] [place] [id number] Home Care No service has been selected for the patient. Dialysis/Infusion No service has been selected for the patient. Shelby Falcon LMSW *[phone] * Procedures (Immed Post or Bedside) - Randall Broussard MD - 11/01/2018 5:02 PM CDT Immediate Post Procedure Note Date: 11/01/2018 Attending Physician: Bobo Performing Provider: Randall Broussard MD Consent: Consent obtained from patient. Time out performed: Consent obtained, correct patient verified, correct procedure verified, correct site verified, patient marked as necessary. Pre/Post Procedure Diagnosis: dysphagia Indications: same Anesthesia: Conscious Sedation Procedure(s): GJ tube placement (18F/45cm) Findings: Normal stomach Estimated Blood Loss: None/Negligible Specimen(s) Removed/Disposition: None Complications: None Patient Tolerated Procedure: Well Post-Procedure Condition: unchanged Randall Broussard MD Pager [phone] * Case Mgmt DC Plan - Ellen Frederick - 11/01/2018 10:22 AM CDT Case Management Progress NoteNAME:Etelvina Alonso :1960 AGE: 58 y.o. ADMISSION DATE: 10/19/2018 DAYS ADMITTED: LOS: 13 days Todays Date: 11/01/2018 Plan Anticipate [facility] Monday pending pt stability and insurance auth. Interventions SHORTY reviewed EMR and met with Neuro team. Anticipate Peg today. Anticipate trach downsize tomorrow. ? Support Support: Pt/Family Updates re:POC or DC Plan ? Info or Referral ? Discharge Planning Discharge Planning: [facility] SHORTY sent updated clinicals including copy of pt's insurance cards to [facility]. SHORTY spoke with Mila at [facility] to update. Mila educated that they will submit for insurance auth for planned admission tomorrow vs Monday. ? Medication Needs ? Financial ? Legal ? Other Disposition ? Expected Discharge Date Expected Discharge Date: 11/02/18 Expected Discharge Time: 1200 ? Transportation Does the patient need discharge transport arranged?: (TBD at discharge) Does the patient use Medicaid Transportation?: No ? Next Level of Care (Acute Psych discharges only) ? Discharge Disposition Durable Medical Equipment No service has been selected for the patient. Destination No service has been selected for the patient. Home Care No service has been selected for the patient. Dialysis/Infusion No service has been selected for the patient. Ellen Frederick LMSW Phone: [phone] Pager: [phone] * Case Mgmt DC Plan - Ellen Frederick - 10/31/2018 8:40 AM CDT Case Management Progress NoteNAME:Etelvina Alonso :1960 AGE: 58 y.o. ADMISSION DATE: 10/19/2018 DAYS ADMITTED: LOS: 12 days Todays Date: 10/31/2018 Plan An[facility] pending pt stability, facility acceptance, and insurance auth. Interventions SW reviewed EMR and met with Neuro team. Anticipate trach downsize on Monday. ENT following. ? Support Support: Pt/Family Updates re:POC or DC Plan ? Info or Referral ? Discharge Planning Discharge Planning: [facility] SHORTY spoke with Mila at [facility] to check status of referral. Mila educated that they have clinically accepted for admission and will likely submit for insurance auth tomorrow to aide in tentative admission on Monday. Update 4:00pm: SHORTY spoke with Mila at [facility] and they will need a copy of pt's insurance card. SHORTY spoke with pt's Nolan ([phone]) to request copy of pt's insurance card. Nolan agreeable to leaving copy of pt's insurance card at bedside. Nolan also aware and in agreement with continued DCP. ? Medication Needs ? Financial ? Legal ? Other Disposition ? Expected Discharge Date Expected Discharge Date: 11/02/18 Expected Discharge Time: 1200 ? Transportation Does the patient need discharge transport arranged?: (TBD at discharge) Does the patient use Medicaid Transportation?: No ? Next Level of Care (Acute Psych discharges only) ? Discharge Disposition Durable Medical Equipment No service has been selected for the patient. Destination No service has been selected for the patient. Home Care No service has been selected for the patient. Dialysis/Infusion No service has been selected for the patient. Ellen Frederick LMSW Phone: [phone] Pager: [phone] * Anesthesia Post Op Day 1 - Kimberley Tatum SRNA - 10/30/2018 10:14 AM CDT Anesthesia Follow-Up Evaluation: Post-Procedure Day One Name: Etelvina Alonso : 1960 Age: 58 y.o. Sex : female Procedure Date: 10/29/2018 Procedure: Procedure(s) with comments: MASTOIDECTOMY - SIMPLE, TYMPANOPLASTY - CASE LENGTH 2 HOURS TRACHEOSTOMY PLANNED Physical Assessment Height: 162.6 cm (64") Weight: 51.5 kg (113 lb 8.6 oz) Vital Signs (Last Filed in 24 hours) BP: 90/47 (10/30 0900) Temp: 37.2 C (98.9 F) (10/30 0800) Pulse: 56 (10/30 0900) Respirations: 21 PER MINUTE (10/30 0900) SpO2: 100 % (10/30 0825) O2 Delivery: Tracheal Tube (10/30 0700) SpO2 Pulse: 56 (10/30 0300) Patient History Allergies No Known Allergies Medications Scheduled Meds: ascorbic acid (VITAMIN C) tablet 500 mg 500 mg Per NG tube QDAY aspirin chewable tablet 81 mg 81 mg Per OG Tube QDAY atorvastatin (LIPITOR) tablet 20 mg 20 mg Per OG Tube QHS budesonide respule (PULMICORT) nebulizer solution 0.5 mg 0.5 mg Inhalation BID cefepime (MAXIPIME) 2 g in sodium chloride 0.9% (NS) 100 mL IVPB (MB+) 2 g Intravenous Q8H* [START ON 11/06/2018] cefTRIAXone (ROCEPHIN) IVP 2 g 2 g Intravenous Q12H* chlorhexidine gluconate (PERIDEX) 0.12 % solution 15 mL 15 mL Swish & Spit BID collagenase (SANTYL) topical ointment Topical BID docusate (COLACE) oral solution 100 mg 100 mg Per OG Tube BID famotidine (PEPCID) oral suspension 20 mg 20 mg Per NG tube BID milk of magnesia (CONC) oral suspension 10 mL 10 mL Per OG Tube QDAY nicotine (NICODERM CQ STEP 1) 21 mg/day patch 1 patch 1 patch Transdermal QDAY( 21) ofloxacin (FLOXIN) 0.3 % (ophthalmic for otic use) solution 4 drop 4 drop Both Ears TID oseltamivir (TAMIFLU) oral suspension 75 mg 75 mg Per NG tube BID potassium chloride oral solution 20 mEq 20 mEq Per OG Tube QDAY senna/docusate (SENOKOT-S) solution 10 mL 10 mL Per OG Tube BID sertraline (ZOLOFT) tablet 50 mg 50 mg SEE ADMIN INSTRUCTIONS QHS zinc sulfate capsule 220 mg 220 mg Per NG tube QDAY Continuous Infusions: dexmedetomidine (PRECEDEX) 400 mcg/NS 100 ml IV drip 1 mcg/kg/hr (10/30/18 0358) PRN and Respiratory Meds:acetaminophen Q4H PRN, calcium gluconate IV PRN (Heating Operators Engineer from Rx) AND Ionized Calcium PRN AND Notify Physician Ongoing, fentaNYL citrate PF Q1H PRN, ipratropium/albuterol Q4H PRN, magnesium sulfate PRN AND [CANCELED] Magnesium PRN AND Notify Physician Ongoing, oxyCODONE Q4H PRN, pancrelipase 20,000 Units/ sodium bicarbonate 650 mg(#) PRN ( Heating Operators Engineer from Rx), potassium chloride SR PRN OR potassium chloride PRN Diagnostic Tests Hematology: Lab Results Component Value Date HGB 8.6 10/30/2018 HCT 25.4 10/30/2018 PLTCT 481 10/30/2018 WBC 11.0 10/30/2018 NEUT 62 10/30/2018 ANC 6.90 10/30/2018 ALC 2.40 10/30/2018 PETERSON 12 10/30/2018 AMC 1.30 10/30/2018 EOSA 2 10/30/2018 ABC 0.20 10/30/2018 MCV 92.4 10/30/2018 MCH 31.2 10/30/2018 MCHC 33.8 10/30/2018 MPV 9.9 10/30/2018 RDW 14.1 10/30/2018 General Chemistry: Lab Results Component Value Date NA 135 10/30/2018 K 4.1 10/30/2018 CL 106 10/30/2018 CO2 25 10/30/2018 GAP 4 10/30/2018 BUN 12 10/30/2018 CR 0.44 10/30/2018 GLU 146 10/30/2018 CA 9.3 10/30/2018 ALBUMIN 2.8 10/27/2018 LACTIC 0.9 10/19/2018 OBSCA 1.26 10/30/2018 MG 2.1 10/30/2018 TOTBILI 0.2 10/27/2018 PO4 5.8 10/30/2018 Coagulation: Lab Results Component Value Date INR 1.0 10/19/2018 Follow-Up Assessment Patient location during evaluation: ICU Anesthetic Complications: Anesthetic complications: The patient did not experience any anesthestic complications. Pain: Management:adequate Level of Consciousness: sleepy but conscious Hydration:acceptable Airway Patency: patent Respiratory Status: CPAP and ventilator (cpap on vent, 5/5 40%) Cardiovascular Status:hemodynamically stable Regional/Neuroaxial: Comments: Sedated on precedex, sleepy but arousable * Case Mgmt DC Plan - Ellen Frederick - 10/30/2018 8:48 AM CDT Case Management Progress NoteNAME:Etelvina Alonso :1960 AGE: 58 y.o. ADMISSION DATE: 10/19/2018 DAYS ADMITTED: LOS: 11 days Todays Date: 10/30/2018 Plan Anticipate d/[facility] to [facility] pending pt stability and insurance auth. Interventions SHORTY reviewed EMR and met with Neuro team. Anticipate trach downsize on Monday. ENT following. ? Support Support: Pt/Family Updates re:POC or DC Plan ? Info or Referral ? Discharge Planning [facility] SHORTY left message for Mila at [facility] to update. SHORTY sent updated clinicals to [facility]. ? Medication Needs ? Financial ? Legal ? Other Disposition ? Expected Discharge Date Expected Discharge Date: 11/02/18 Expected Discharge Time: 1200 ? Transportation Does the patient need discharge transport arranged?: (TBD at discharge) Does the patient use Medicaid Transportation?: No ? Next Level of Care (Acute Psych discharges only) ? Discharge Disposition Durable Medical Equipment No service has been selected for the patient. Destination No service has been selected for the patient. Home Care No service has been selected for the patient. [facility]/Infusion No service has been selected for the patient. Ellen Frederick LMSW Phone: [phone] Pager: [phone] * Procedures (Immed Post or Bedside) - Yessica Burris MD - 10/29/2018 4:40 PM CDT Brief Operative Note Name: Etelvina Alonso is a 58 y.o. female : 1960 DATE OF OPERATION: 10/29/2018 Date: 10/29/2018 Preoperative Dx: Altered mental status, unspecified altered mental status type [R41.82] Post-op Diagnosis * Altered mental status, unspecified altered mental status type [R41.82] Procedure(s) (LRB): MASTOIDECTOMY - SIMPLE (right) TRACHEOSTOMY PLANNED Bilateral myringotomy with tympanostomy tube placement Anesthesia Type: Defer to Anesthesia Surgeon(s) and Role: * Duy Burch MD - Primary * Yessica Burris MD - Resident - Assisting Findings: Mucoid effusion bilaterally, PE tubes placed Right mastoid with granulation tissue, incus was noted to be necrotic and was removed 6-0 cuffed shiley secured in place between tracheal rings 2-3 Estimated Blood Loss: 20 ml Specimen(s) Removed/Disposition: ID Type Source Tests Collected by Time Destination 1 : MASTOID CONTENTS Tissue Ear SURGICAL PATHOLOGY Duy Burch MD 10/29/2018 1525 Complications: None Implants: christina PE tubes, 6-0 cuffed shiley Drains: None Disposition: ICU - stable Yessica Burris MD Pager [phone] * Operative Report (Direct Entry) - Duy Burch MD - 10/29/2018 4:00 PM CDT OPERATIVE REPORT Name: Etelvina Alonso is a 58 y.o. female : 1960 DATE OF OPERATION: 10/29/2018 Surgeon(s) and Role: * Duy Burch MD - Primary * Yessica Burris MD - Resident - Assisting Preoperative Diagnosis: Altered mental status, unspecified altered mental status type [R41.82] Post-op Diagnosis * Altered mental status, unspecified altered mental status type [R41.82] Procedure: 1) Bilateral myringotomy and tube 2) Mastoidectomy, canal wall up, complete 3) Tracheostomy Anesthesia Type: Defer to Anesthesia Findings: Mucoid effusion bilaterally, PE tubes placed Right mastoid with granulation tissue, incus was noted to be necrotic and was removed 6-0 cuffed shiley secured in place between tracheal rings 2-3 Description and Findings of Operative Procedure: After informed consent was obtained, the patient was brought back to the operating room and placed in supine position. Anesthesia was induced by a combination of intravenous and inhalation technique with endotracheal intubation achieved without issue. The eyes were lubricated and taped. A head donut was placed. The bed was turned 180 degrees. The white and green nerve monitor electrodes were placed in the left shoulder. The red and blue nerve monitor electrodes were placed in the right orbicularis oculi and horacio muscles, respectively. These electrodes were connected to the electrode bed. The nerve monitoring equipment was set up in usual fashion with appropriate signaling confirmed. A timeout was taken. A speculum was inserted in the patient's bilateral ears, and the ear canal and tympanic membrane were inspected under binocular microscopy. We first viewed the right ear. An intact drum was noted, a myringotomy blade was used to make an incision in the anterior inferior quadrant. A christina tube was placed and confirmed in good position. We then viewed the left ear. An intact drum was noted, a myringotomy blade was used to make an incision in the anterior inferior quadrant. A christina tube was placed and confirmed in good position. A curvilinear incision was made in the postauricular region from linea temporalis to mastoid tip with 15-scalpel blade through the skin and subcutaneous layer down to the superficial layer of the deep temporalis fascia. We next made a cardenas incision in usual fashion with Bovie cautery through the deeper tissue layers down to bone. A Rodriguezpert elevator was used to elevator a musculoperiosteal flap from posteriorly to anteriorly. The posterior canal wall was identified. The vascular strip and musculoperiosteal flap were retracted away with a self-retaining retractor. Under binocular microscopy, cortical mastoidectomy was performed. We eventually opened up Jennifer's septum and the antrum until we entered the middle ear space. 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 Curette was used to excise additional mastoid air cells. This was done to remove diseased mucosa and completed prior mastoidectomy. with removal of mastoid air cells cholesteatoma was serially stripped from the existing mastoid bowl.The incus was noted within the middle ear with granulation tissue. The incus was removed. The mastoid was irrigated. The wound was then closed in layers with 3-0 Vicryl to close the periosteum and the deep muscle layers and a running 5-0 fast absorbable gut on the skin. She tolerated the procedure well. All instrument, sponge, and needle counts were correct times 2. The bed was then turned back 180 to face anesthesia. The anterior neck landmarks were inspected and palpated. A 2 cm incision line was marked in a horizontal neck crease below the level of the cricoid. The incision was injected with 3 cc of 1% lidocaine with epinephrine. The neck was prepped and draped in sterile fashion. Incision was made with 15-scalpel blade through the skin down to the subcutaneous layer. We continued our dissection until we reached the level of the strap muscles. We then divided the strap muscles along the midline raphe and retracted them away laterally. The thyroid tissue was then carefully transected at midline and retracted away laterally, with care to control bleeding along the way. We identified the cricoid and inserted a cricoid hook to retract the airway superiorly. The trachea was cleared of residual fascia with a Kitner. We then asked the Anesthesia team to increase FiO2 to 100% to pre-oxygenate the patient. A trach window was made. With the patient well-oxygenated, the Anesthesia team then deflated the cuff of the endotracheal tube and advanced the tube down the airway. Incision was made into the trachea with 15-scalpel blade between tracheal rings 2-3. The Anesthesia team then backed out the endotracheal tube until the tip of the tube was just above the tracheotomy window. A 6-0 cuffed Shiley tracheostomy tube was inserted through the window into the airway with cuff inflated. The anesthesia circuit was connected to the tracheostomy tube with appropriate CO2 confirmation made. The tracheostomy tube was secured to the skin with four simple interrupted stitches of 2.0 Silk. All retracting instruments were removed. The old endotracheal tube was removed as well. The tracheostomy tube was further reinforced with neck ties. All counts were correct. The patient was eventually transferred to the recovery room in stable condition. Duy German was present and performed the procedure Estimated Blood Loss: 5 ml Specimen(s) Removed/Disposition: ID Type Source Tests Collected by Time Destination 1 : MASTOID CONTENTS Tissue Ear SURGICAL PATHOLOGY Duy Burch MD 10/29/2018 1525 Yessica Burris MD Pager [phone] * Case Mgmt DC Plan - Jaymie Child - 10/29/2018 1:53 PM CDT Case Management Progress NoteNAME:Etelvina Alonso :1960 AGE: 58 y.o. ADMISSION DATE: 10/19/2018 DAYS ADMITTED: LOS: 10 days Todays Date: 10/29/2018 Plan Plan for OR today. Anticipate Lt[facility] placement when medically stable. Referral pending at [facility]. Interventions ? Support Spouse, Nolan Alonso -cell Sister, Demetra Browning -cell ? Info or Referral ? Discharge Planning Discharge Planning: [facility] SW assisting primary SW, Ellen Frederick, with ongoing d/c planning. SHORTY reviewed EMR for poc update and discussed with primary SW re: plan for OR today for trach, anticipate d/c to Lt[facility] when medically stable, likely the end of the week. SHORTY attempted to meet with pt's spouse, Nolan, at the bedside x2 -- spouse off unit, but RN reports spouse has been present at hospital today. SW attempted to contact spouse on pt's cell phone for follow up -- no answer. Per RN, spouse does not have his own cell phone and has been using patient's phone on/off, but is not always easy to reach. SHORTY staff will continue to follow for ongoing d/c planning and support, with anticipated Ltach placement. 14:15 -- SHORTY notified by RN that spouse has returned to bedside. SW met with spouse, explained SW role, and discussed anticipated Ltach placement once pt was medically stable. SHORTY provided pt's spouse with an Ltach list for review. Spouse reports he and pt have been staying with family in [place], [place], but they don't plan to remain there halfway. Spouse reports he started a new job in [place], [place], and indicates he will have to report back to his job site in [place] in the next day or two. Pt's spouse reports he obtained a new cell phone, and will be available for ongoing d/c planning at the number listed above -- SW updated Facesheet with spouse's new contact information. Spouse reports preference for [facility] is currently [facility]. SW sent initial referral for review. ? Medication Needs ? Financial ? Legal ? Other Disposition ? Expected Discharge Date Expected Discharge Date: 11/02/18 ? Transportation Does the patient need discharge transport arranged?: (TBD at discharge) Does the patient use Medicaid Transportation?: No ? Next Level of Care (Acute Psych discharges only) ? Discharge Disposition Durable Medical Equipment No service has been selected for the patient. [facility] Destination No service has been selected for the patient. [facility] Home Care No service has been selected for the patient. [facility] D[facility]/Infusion No service has been selected for the patient. Katelynn Child LMSW, [facility] [phone] * Case Mgmt DC Plan - Natalia Spence - 10/26/2018 1:01 PM CDT Case Management Progress NoteNAME:Etelvina Alonso :1960 AGE: 58 y.o. ADMISSION DATE: 10/19/2018 DAYS ADMITTED: LOS: 7 days Todays Date: 10/26/2018 Plan DCP Ongoing: SHORTY anticipates pt to [facility] pending family agreement, insurance auth, and medical stability. Interventions ? Support Support: Pt/Family Updates re:POC or DC Plan Assisting SW reviewed EMR, team gained consent form pt's spouse:Leonidas for Tympanomastoidectomy Monday. Pt currently on Q8 IV Cefepime and IV Fluconazole [id number] DC to LTACH mid next week. ? Info or Referral ? Discharge Planning Discharge Planning: [facility] [place] No contact number provided for pt's spouse in demographics. SW contacted pt' s emergency contact, sister: demetra [phone] and left requesting callback to discuss DCP. SW also contacted pt's home phone number:[phone]-message indicated phone number is pt's cell phone-SW did not leave . UPDATE:[id number] SW received callback from Demetra who confirms pt's spouse is at bedside and should be available at bedside this weekend to participate in POC. SW f/u at pt's bedside 2x this afternoon-spouse unavailable. ? Medication Needs ? Financial ? Legal ? Other Disposition ? Expected Discharge Date Expected Discharge Date: 10/29/18 Expected Discharge Time: 1200 ? Transportation Does the patient need discharge transport arranged?: (TBD at discharge) Does the patient use Medicaid Transportation?: No ? Next Level of Care (Acute Psych discharges only) ? Discharge Disposition Durable Medical Equipment No service has been selected for the patient. Destination No service has been selected for the patient. Home Care No service has been selected for the patient. Dialysis/Infusion No service has been selected for the patient. -Hortensia Spence LMSW *[id number] * Case Mgmt DC Plan - Barbara Mckeon - 10/26/2018 8:47 AM CDT Request for Benefits Received request from [facility] Ellen Frederick to check LTACH benefits for patient. LTACH Benefits: No Max as long as meeting medical necessity. Pre Cert Not Required. Subject to deductible, coinsurance and OOP Max. Ded:$ 300 Ded Remaining:$0 Coins %: 90/10 OOP Max:$7500 OOP Remaining:$5859.31 Once OOP Max is met the patient is covered at 100% This is a Union plan so it is a month to month plan, she is currently good through the month of October. Barbara Mckeon Commercial Loan Processor For further assistance please contact [facility] Ellen Frederick *[phone] * Procedures (Immed Post or Bedside) - Pankaj Bunn MD - 10/23/2018 4: 31 PM CDT Lumbar Puncture Procedure Note Procedure: Lumbar puncture Indications: Infectious workup Physicians:, Dr. Menendez, Dr. Bunn, Dr. Perez Procedure Details Lumbar Puncture: Under sterile conditions and with the patient in the Left lateral position , the skin of the lower back was prepped using Povidone Iodine and covered with a sterile drape. Local anesthesia was applied to the skin and subcutaneous tissues at lumbar level L4. A 20 gauge spinal needle was inserted and advanced to the subarachnoid space. The opening pressure was 23.5 cm, and 20 mL of Clear , colorless fluid was removed. The needle was withdrawn and a sterile dressing was applied. Findings: CSF fluid was collected into 4 vials and sent to lab. Recommendations: Remain flat for 1 hour post procedure Pankaj Bunn MD [id number] Associated attestation - Farhad Perez MD - 10/23/2018 6:47 PM CDT ATTESTATION I was present during the entire procedure performed by a resident Staff name: Farhad Perez MD Date: 10/23/2018 * Case Mgmt DC Plan - Darcy Smith - 10/22/2018 1:05 PM CDT Case Management Admission AssessmentNAME:Etelvina Alonso :1960 AGE: 58 y.o. ADMISSION DATE: 10/19/2018 DAYS ADMITTED: LOS: 3 days Todays Date: 10/22/2018 Source of Information: patient's sister/Demetra Plan Plan: Case Management Assessment, Assist PRN with SW/NCM Services, Other ( comment)(d/c planning ongoing) NCM to pt bedside and pt unable to perform assessment and pt sister/Demetra returning call to answer questions. Demetra states that the patient, her spouse/Leonidas, their daughter Ibeth Alonzo and her two children Clayton Alonzo, a 5 yo son, and daughter George Alonzo a 15 mo old daughter all live in [facility] ONE bedroom HUD housing apartment (since before XMas). Total of 6 people in one bedroom apartment sharing recliner, couch etc for housing/living arrangement. Patient owns DME of: RW, Nebulizer, toilet riser. Patient requires transportation and Demetra currently gaining access to her own son's car as he is incarcerated currently. [facility] to pass assessment information to Primary CM team D/c dispo/planning ongoing Patient Address/Phone [address] [facility] [address] [place] [phone] (home) Emergency Contact Extended Emergency Contact Information Primary Emergency Contact: Demetra Pimentel Mobile Relation: Sister Event Decorator needed? No Healthcare Directive Transportation Does the patient need discharge transport arranged?: (TBD at discharge) Does the patient use Medicaid Transportation?: No Expected Discharge Date Expected Discharge Date: 10/29/18 Expected Discharge Time: 1200 Living Situation Prior to Admission ? Living Arrangements Type of Residence: Home, dependent on others Living Arrangements: Children, Family members, Spouse/significant other How many levels in the residence?: 5(with elevator) Can patient live on one level if needed?: Yes Does residence have entry and/or side stairs?: No Assistance needed prior to admit or anticipated on discharge: (pt sister and spouse assist in driving ) Who provides assistance or could if needed?: sister (who is on SSDI) spouse who works and daughter who has DX of bi polar and 2 young kids she is giving custody to pt sister. Are they in good health?: Unknown Can support system provide 24/7 care if needed?: Maybe ? Level of Function Prior level of function: Independent(needs transportation from family) ? Cognitive Abilities Cognitive Abilities: Continue to Assess, Unable to Assess Financial Resources ? Coverage Primary Insurance: [facility] ? Source of Income ? Financial Assistance Needed? Continue to assess Psychosocial Needs ? Mental Health Mental Health History: No ? Substance Use History Substance Use History Screen: Yes Comment: patient smokes 2 ppd x45 years ? Other na Current/Previous Services ? PCP Akbar Fonseca, , ? Pharmacy [facility] [address] [place] [id number] [place] [phone] ? Durable Medical Equipment Durable Medical Equipment at home: Grab bars, Roller Walker, Toilet riser, Nebulizer ? Home Health Receiving home health: No ? Hemodialysis or Peritoneal Dialysis Undergoing hemodialysis or peritoneal dialysis: No ? Tube/Enteral Feeds Receive tube/enteral feeds: No ? Infusion Receive infusions: No ? Private Duty Private duty help used: No ? Home and Community Based Services Home and community based services: No ? Pietro White Pietro White: No ? Hospice Hospice: No ? Outpatient Therapy PT: No OT: No SEASONAL SALES ASSOCIATE: No ? Alf Facility/Longterm SNF: No NH: No ? Inpatient Rehab IPR: No ? Long-Term Acute Care Hospital LTACH: No ? Acute Hospital Stay Acute Hospital Stay: No Margo Smith RN Nurse Loan Representative * Case Mgmt DC Plan - Darcy Smith - 10/22/2018 11:55 AM CDT Case Management Progress NoteNAME:Etelvina Alonso :1960 AGE: 58 y.o. ADMISSION DATE: 10/19/2018 DAYS ADMITTED: LOS: 3 days Todays Date: 10/22/2018 Plan NCM to pt room where she is in ICU with notes indicating obtunded status and alone in room with mits on. NCM placed call to sister: Demetra with identifying VMM requesting NON EMERGENT call back for case management assessment. Interventions ? Support Support: Other ? Info or Referral ? Discharge Planning ? Medication Needs ? Financial ? Legal ? Other Disposition ? Expected Discharge Date Expected Discharge Date: 10/30/18 ? Transportation ? Next Level of Care (Acute Psych discharges only) ? Discharge Disposition Durable Medical Equipment No service has been selected for the patient. Destination No service has been selected for the patient. Home Care No service has been selected for the patient. Dialysis/Infusion No service has been selected for the patient. Margo Smith RN Nurse Loan Representative documented in this encounter Plan of Treatment Date/Time Name Priority Associated Diagnoses 10/29/2018 10:55 AM CDT TRANSFUSE RBC'S NON-BLEEDING PT Routine 10/29/2018 10:55 AM CDT TRANSFUSE RBC'S NON-BLEEDING PT Routine Order Schedule Name Priority Associated Diagnoses ONCE for 1 Occurrences starting 10/29/2018 SURGICAL PATHOLOGY Routine Altered mental status, unspecified altered mental status type documented as of this encounter Procedures Comments Procedure Name Priority Date/Time Associated Diagnosis CBC Routine 11/03/2018 5:42 AM CDT PHOSPHORUS Routine 11/03/2018 5:42 AM CDT MAGNESIUM Routine 11/03/2018 5:42 AM CDT IONIZED CALCIUM Routine 11/03/2018 5:42 AM CDT BASIC METABOLIC PANEL Routine 11/03/2018 5:42 AM CDT PROCALCITONIN STAT 11/02/2018 9:55 AM CDT CBC AND DIFF Routine 11/02/2018 3:45 AM CDT PHOSPHORUS Routine 11/02/2018 3:45 AM CDT MAGNESIUM Routine 11/02/2018 3:45 AM CDT IONIZED CALCIUM Routine 11/02/2018 3:45 AM CDT BASIC METABOLIC PANEL Routine 11/02/2018 3:45 AM CDT IR GASTROSTOMY Routine 11/01/2018 5:03 PM CDT POTASSIUM Routine 11/01/2018 1:53 PM CDT MAGNESIUM Routine 11/01/2018 1:53 PM CDT CBC AND DIFF Routine 11/01/2018 4:15 AM CDT PHOSPHORUS Routine 11/01/2018 4:15 AM CDT MAGNESIUM Routine 11/01/2018 4:15 AM CDT IONIZED CALCIUM Routine 11/01/2018 4:15 AM CDT BASIC METABOLIC PANEL Routine 11/01/2018 4:15 AM CDT CHEST SINGLE VIEW Routine 10/31/2018 11:48 AM CDT CBC AND DIFF Routine 10/31/2018 2:50 AM CDT PHOSPHORUS Routine 10/31/2018 2:50 AM CDT MAGNESIUM Routine 10/31/2018 2:50 AM CDT IONIZED CALCIUM Routine 10/31/2018 2:50 AM CDT BASIC METABOLIC PANEL Routine 10/31/2018 2:50 AM CDT BASIC METABOLIC PANEL STAT 10/30/2018 7:45 PM CDT POC BLOOD GAS ARTERIAL 10/30/2018 7:25 PM CDT POC SODIUM 10/30/2018 7:25 PM CDT POC POTASSIUM 10/30/2018 7:25 PM CDT POC IONIZED CALCIUM 10/30/2018 7:25 PM CDT POC HEMATOCRIT 10/30/2018 7:25 PM CDT CONSULT IV THERAPY TEAM Routine 10/30/2018 4:34 PM CDT SURGICAL PATHOLOGY 10/30/2018 9:38 AM CDT CBC AND DIFF Routine 10/30/2018 4:05 AM CDT PHOSPHORUS Routine 10/30/2018 4:05 AM CDT MAGNESIUM Routine 10/30/2018 4:05 AM CDT IONIZED CALCIUM Routine 10/30/2018 4:05 AM CDT BASIC METABOLIC PANEL Routine 10/30/2018 4:05 AM CDT TRACHEOSTOMY PLANNED 10/29/2018 Altered mental status, 5:00 PM CDT unspecified altered mental status type MASTOIDECTOMY - SIMPLE 10/29/2018 Altered mental status, 5:00 PM CDT unspecified altered mental status type POC BLOOD GAS RAYO 10/29/2018 3:37 PM CDT POC SODIUM 10/29/2018 3:37 PM CDT POC POTASSIUM 10/29/2018 3:37 PM CDT POC IONIZED CALCIUM 10/29/2018 3:37 PM CDT POC HEMATOCRIT 10/29/2018 3:37 PM CDT US ABDOMEN COMPLETE Routine 10/29/2018 8:13 AM CDT CBC AND DIFF Routine 10/29/2018 4:18 AM CDT BLOOD TYPE CONFIRMATION - 10/29/2018 ORDER ONLY IF REQUESTED 4:18 AM CDT BY LAB PHOSPHORUS Routine 10/29/2018 4:18 AM CDT MAGNESIUM Routine 10/29/2018 4:18 AM CDT IONIZED CALCIUM Routine 10/29/2018 4:18 AM CDT BASIC METABOLIC PANEL Routine 10/29/2018 4:18 AM CDT TYPE & CROSSMATCH Routine 10/28/2018 5:01 PM CDT IRON + BINDING CAPACITY + Routine 10/28/2018 %SAT+ FERRITIN 2:14 PM CDT RETICULOCYTE COUNT Routine 10/28/2018 2:14 PM CDT POTASSIUM Routine 10/28/2018 2:14 PM CDT IONIZED CALCIUM Routine 10/28/2018 3:51 AM CDT CBC AND DIFF Routine 10/28/2018 3:43 AM CDT PHOSPHORUS Routine 10/28/2018 3:43 AM CDT MAGNESIUM Routine 10/28/2018 3:43 AM CDT BASIC METABOLIC PANEL Routine 10/28/2018 3:43 AM CDT BLOOD GASES, ARTERIAL STAT 10/27/2018 4:38 AM CDT IONIZED CALCIUM Routine 10/27/2018 4:38 AM CDT CBC AND DIFF Routine 10/27/2018 4:18 AM CDT PHOSPHORUS Routine 10/27/2018 4:18 AM CDT MAGNESIUM Routine 10/27/2018 4:18 AM CDT LIVER FUNCTION PANEL STAT 10/27/2018 4:18 AM CDT BASIC METABOLIC PANEL Routine 10/27/2018 4:18 AM CDT POTASSIUM Routine 10/26/2018 8:52 PM CDT MRI HEAD WO/W CONTRAST Routine 10/26/2018 5:18 AM CDT CBC AND DIFF Routine 10/26/2018 3:16 AM CDT PHOSPHORUS Routine 10/26/2018 3:16 AM CDT MAGNESIUM Routine 10/26/2018 3:16 AM CDT IONIZED CALCIUM Routine 10/26/2018 3:16 AM CDT BASIC METABOLIC PANEL Routine 10/26/2018 3:16 AM CDT PHOSPHORUS Routine 10/25/2018 2:00 PM CDT POTASSIUM Routine 10/25/2018 8:15 AM CDT POC GLUCOSE 10/25/2018 6:30 AM CDT CHEST SINGLE VIEW Routine 10/25/2018 4:08 AM CDT CBC AND DIFF Routine 10/25/2018 3:19 AM CDT PHOSPHORUS Routine 10/25/2018 3:19 AM CDT MAGNESIUM Routine 10/25/2018 3:19 AM CDT IONIZED CALCIUM Routine 10/25/2018 3:19 AM CDT AMMONIA Routine 10/25/2018 3:19 AM CDT BASIC METABOLIC PANEL Routine 10/25/2018 3:19 AM CDT POC GLUCOSE 10/24/2018 10:00 PM CDT C DIFFICILE BY PCR STAT 10/24/2018 6:30 PM CDT POTASSIUM Routine 10/24/2018 9:56 AM CDT MAGNESIUM Routine 10/24/2018 9:56 AM CDT VANCOMYCIN TROUGH Routine 10/24/2018 9:56 AM CDT CBC AND DIFF Routine 10/24/2018 2:00 AM CDT PHOSPHORUS Routine 10/24/2018 2:00 AM CDT MAGNESIUM Routine 10/24/2018 2:00 AM CDT IONIZED CALCIUM Routine 10/24/2018 2:00 AM CDT BASIC METABOLIC PANEL Routine 10/24/2018 2:00 AM CDT ABDOMEN AP ONLY Routine 10/23/2018 9:27 PM CDT HERPES SIMPLEX PCR - STAT 10/23/2018 NON-BLOOD 4:15 PM CDT GRAM STAIN 10/23/2018 4:15 PM CDT CULTURE-CSF W/SENSITIVITY STAT 10/23/2018 4:15 PM CDT CELL COUNT W/DIFF-CSF STAT 10/23/2018 4:15 PM CDT TOTAL PROTEIN-CSF STAT 10/23/2018 4:15 PM CDT GLUCOSE-CSF STAT 10/23/2018 4:15 PM CDT JYOTSNA W/O CONTRAST & W/ 3D Routine 10/23/2018 ON CART 3:51 PM CDT POTASSIUM STAT 10/23/2018 1:17 PM CDT CBC AND DIFF Routine 10/23/2018 3:25 AM CDT PHOSPHORUS Routine 10/23/2018 3:25 AM CDT MAGNESIUM Routine 10/23/2018 3:25 AM CDT BLOOD GASES, ARTERIAL STAT 10/23/2018 3:25 AM CDT IONIZED CALCIUM Routine 10/23/2018 3:25 AM CDT BASIC METABOLIC PANEL Routine 10/23/2018 3:25 AM CDT CULTURE-BLOOD Routine 10/22/2018 W/SENSITIVITY 12:36 PM CDT CONSULT IV THERAPY TEAM STAT 10/22/2018 12:01 PM CDT CULTURE-BLOOD Routine 10/22/2018 W/SENSITIVITY 11:43 AM CDT CBC AND DIFF Routine 10/22/2018 3:15 AM CDT PHOSPHORUS Routine 10/22/2018 3:15 AM CDT MAGNESIUM Routine 10/22/2018 3:15 AM CDT BLOOD GASES, ARTERIAL STAT 10/22/2018 3:15 AM CDT IONIZED CALCIUM Routine 10/22/2018 3:15 AM CDT BASIC METABOLIC PANEL Routine 10/22/2018 3:15 AM CDT VANCOMYCIN TROUGH Routine 10/21/2018 9:41 PM CDT SODIUM Routine 10/21/2018 1:35 PM CDT ABDOMEN AP ONLY CRUZ 10/21/2018 10:38 AM CDT CBC AND DIFF Routine 10/21/2018 3:10 AM CDT PHOSPHORUS Routine 10/21/2018 3:10 AM CDT MAGNESIUM Routine 10/21/2018 3:10 AM CDT IONIZED CALCIUM Routine 10/21/2018 3:10 AM CDT BASIC METABOLIC PANEL Routine 10/21/2018 3:10 AM CDT RVP VIRAL PANEL PCR Routine 10/20/2018 11:05 PM AUTOMATIC NAILING MACHINE FEEDER ABDOMEN AP ONLY Routine 10/20/2018 8:25 PM AUTOMATIC NAILING MACHINE FEEDER ABDOMEN AP ONLY Routine 10/20/2018 8:18 PM AUTOMATIC NAILING MACHINE FEEDER AMMONIA Routine 10/20/2018 3:57 PM AUTOMATIC NAILING MACHINE FEEDER LIVER FUNCTION PANEL Routine 10/20/2018 3:57 PM AUTOMATIC NAILING MACHINE FEEDER MRI HEAD WO/W CONTRAST STAT 10/20/2018 3:41 PM AUTOMATIC NAILING MACHINE FEEDER CT LOWER EXTREM W CONT Routine 10/20/2018 BILAT 1:56 PM AUTOMATIC NAILING MACHINE FEEDER CT INT AUD CANAL WO Routine 10/20/2018 CONTRAST 1:50 PM AUTOMATIC NAILING MACHINE FEEDER POTASSIUM Routine 10/20/2018 11:17 AM AUTOMATIC NAILING MACHINE FEEDER ACETAMINOPHEN LEVEL Routine 10/20/2018 11:17 AM AUTOMATIC NAILING MACHINE FEEDER 2-D + DOPPLER Routine 10/20/2018 ECHOCARDIOGRAM 10:08 AM AUTOMATIC NAILING MACHINE FEEDER BLOOD GASES, ARTERIAL Routine 10/20/2018 3:49 AM AUTOMATIC NAILING MACHINE FEEDER CBC AND DIFF Routine 10/20/2018 3:38 AM AUTOMATIC NAILING MACHINE FEEDER PHOSPHORUS Routine 10/20/2018 3:38 AM AUTOMATIC NAILING MACHINE FEEDER MAGNESIUM Routine 10/20/2018 3:38 AM AUTOMATIC NAILING MACHINE FEEDER IONIZED CALCIUM Routine 10/20/2018 3:38 AM AUTOMATIC NAILING MACHINE FEEDER BASIC METABOLIC PANEL Routine 10/20/2018 3:38 AM AUTOMATIC NAILING MACHINE FEEDER GRAM STAIN 10/20/2018 1:28 AM AUTOMATIC NAILING MACHINE FEEDER CULTURE-WOUND/TISSUE/FLUI Routine 10/20/2018 D(AEROBIC 1:28 AM AUTOMATIC NAILING MACHINE FEEDER ONLY)W/SENSITIVITY GRAM STAIN 10/20/2018 1:07 AM AUTOMATIC NAILING MACHINE FEEDER CULTURE-RESP,LOWER Routine 10/20/2018 W/SENSITIVITY 1:07 AM AUTOMATIC NAILING MACHINE FEEDER BLOOD GASES, ARTERIAL STAT 10/20/2018 1:01 AM AUTOMATIC NAILING MACHINE FEEDER CT HEAD WO CONTRAST Routine 10/20/2018 12:45 AM AUTOMATIC NAILING MACHINE FEEDER CULTURE-BLOOD Routine 10/20/2018 W/SENSITIVITY 12:12 AM AUTOMATIC NAILING MACHINE FEEDER CULTURE-BLOOD Routine 10/20/2018 W/SENSITIVITY 12:11 AM AUTOMATIC NAILING MACHINE FEEDER CHEST SINGLE VIEW STAT 10/19/2018 11:45 PM AUTOMATIC NAILING MACHINE FEEDER PHENCYCLIDINES-URINE Routine 10/19/2018 RANDOM 11:36 PM AUTOMATIC NAILING MACHINE FEEDER OPIATES-URINE RANDOM Routine 10/19/2018 11:36 PM AUTOMATIC NAILING MACHINE FEEDER COCAINE-URINE RANDOM Routine 10/19/2018 11:36 PM AUTOMATIC NAILING MACHINE FEEDER CANNABINOIDS-URINE RANDOM Routine 10/19/2018 11:36 PM AUTOMATIC NAILING MACHINE FEEDER BENZODIAZEPINES-URINE Routine 10/19/2018 RANDOM 11:36 PM AUTOMATIC NAILING MACHINE FEEDER BARBITURATES-URINE RANDOM Routine 10/19/2018 11:36 PM AUTOMATIC NAILING MACHINE FEEDER AMPHETAMINES-URINE RANDOM Routine 10/19/2018 11:36 PM AUTOMATIC NAILING MACHINE FEEDER PROTIME INR (PT) STAT 10/19/2018 11:36 PM AUTOMATIC NAILING MACHINE FEEDER CBC AND DIFF STAT 10/19/2018 11:36 PM AUTOMATIC NAILING MACHINE FEEDER PHOSPHORUS STAT 10/19/2018 11:36 PM AUTOMATIC NAILING MACHINE FEEDER MAGNESIUM STAT 10/19/2018 11:36 PM AUTOMATIC NAILING MACHINE FEEDER LACTIC ACID(LACTATE) STAT 10/19/2018 11:36 PM AUTOMATIC NAILING MACHINE FEEDER IONIZED CALCIUM STAT 10/19/2018 11:36 PM AUTOMATIC NAILING MACHINE FEEDER COMPREHENSIVE METABOLIC STAT 10/19/2018 PANEL 11:36 PM AUTOMATIC NAILING MACHINE FEEDER TELEMETRY STRIPS-SCAN 10/19/2018 12:00 AM AUTOMATIC NAILING MACHINE FEEDER ECG-SCAN 10/19/2018 12:00 AM AUTOMATIC NAILING MACHINE FEEDER documented in this encounter Results * PHOSPHORUS (11/03/2018 5:42 AM CDT) Phosphorus 5.0 (H)Comment: NOTE NEW 2.0 - 4.5 MG/DL [facility] MAIN LAB REFERENCE RANGES Specimen Blood Performing Organization Address [facility]/Zipcode Phone Number MAIN LAB [address] [phone] * MAGNESIUM (11/03/2018 5:42 AM CDT) Magnesium 2.2 1.6 - 2.6 mg/dL [facility] MAIN LAB Specimen Blood Performing Organization Address [facility] Phone Number MAIN LAB [address] [place] [address] * BASIC METABOLIC PANEL (11/03/2018 5:42 AM CDT) Sodium 137 137 - 147 MMOL/L [facility] [...] Calcium 10.7 (H) 8.5 - 10.6 MG/DL MAIN LAB eGFR Non >60 >60 mL/min MAIN LAB Comment: Danish The eGFR is not validated for use in drug dosing adjustments.Continue to use estimated creatinine clearance per dosing reference text.Please contact the Clinical Pharmacist for questions. eGFR >60 >60 mL/min [facility] MAIN LAB Danish Comment: The eGFR is not validated for use in drug dosing adjustments.Continue to use estimated creatinine clearance per dosing reference text.Please contact the Clinical Pharmacist for questions. Specimen Blood Performing Organization Address City/[facility] Phone Number MAIN LAB [address] [place] [address] * CBC (11/03/2018 5:42 AM CDT) White Blood 11.2 (H) 4.5 - 11.0 K/UL [facility] MAIN LAB Cells RBC 3.39 (L) 4.0 - 5.0 M/UL [facility] MAIN LAB Hemoglobin 10.3 (L) 12.0 - 15.0 GM/DL [facility] MAIN LAB Hematocrit 31.6 (L) 36 - 45 % [facility] MAIN LAB MCV 93.1 80 - 100 FL MAIN LAB MCH 30.3 26 - 34 PG MAIN LAB MCHC 32.6 32.0 - 36.0 G/DL MAIN LAB RDW 13.3 11 - 15 % MAIN LAB Platelet Count 643 (H) 150 - 400 K/UL MAIN LAB MPV 9.1 7 - 11 FL MAIN LAB Specimen Blood Performing Organization Address [facility] Phone Number MAIN LAB [address] [place] [address] * IONIZED CALCIUM (11/03/2018 5:42 AM CDT) Ionized Calcium 1.26 1.0 - 1.3 MMOL/L MAIN LAB Specimen Blood Performing Organization Address [facility]/Zipcode Phone Number MAIN LAB [address] [place] [address] * PROCALCITONIN (11/02/2018 9:55 AM CDT) Procalcitonin 0.07 <0.10 NG/ML MAIN LAB Specimen Blood Performing Organization Address [facility] Phone Number MAIN LAB [address] [place] [address] * PHOSPHORUS (11/02/2018 3:45 AM CDT) Phosphorus 4.4Comment: NOTE NEW REFERENCE 2.0 - 4.5 MG/DL [facility] MAIN LAB RANGES Specimen Blood Performing Organization Address [facility] Phone Number MAIN LAB [address] [place] [address] * MAGNESIUM (11/02/2018 3:45 AM CDT) Pathologist [facility] Magnesium 2.3 1.6 - 2.6 mg/dL [facility] MAIN LAB Specimen Blood Performing Organization Address City/[facility]/Zipcode Phone Number MAIN LAB [address] [place] [address] * BASIC METABOLIC PANEL (11/02/2018 3:45 AM CDT) Sodium 139 137 - 147 MMOL/L [facility] MAIN LAB Potassium 4.3 3.5 - 5.1 MMOL/L [facility] MAIN LAB Chloride 102 98 - 110 MMOL/L [facility] MAIN LAB CO2 26 21 - 30 MMOL/L [facility] MAIN LAB Anion Gap 11 3 - 12 [facility] MAIN LAB Glucose 123 (H) 70 - 100 MG/DL [facility] MAIN LAB Blood Urea 17 7 - 25 MG/DL [facility] MAIN LAB Nitrogen Creatinine 0.47 0.4 - 1.00 MG/DL [facility] MAIN LAB Calcium 10.6 8.5 - 10.6 MG/DL [facility] MAIN LAB eGFR Non >60 >60 mL/min [facility] MAIN LAB Comment: Danish The eGFR is not validated for use in drug dosing adjustments.Continue to use estimated creatinine clearance per dosing reference text.Please contact the Clinical Pharmacist for questions. eGFR >60 >60 mL/min [facility] MAIN LAB Danish Comment: The eGFR is not validated for use in drug dosing adjustments.Continue to use estimated creatinine clearance per dosing reference text.Please contact the Clinical Pharmacist for questions. Specimen Blood Performing Organization Address City/[facility]/Zipcode Phone Number MAIN LAB [address] [place] [address] * CBC AND DIFF (11/02/2018 3:45 AM CDT) White Blood 11.4 (H) 4.5 - 11.0 [...] Basophil Count Specimen Blood Performing Organization Address [facility]/Zipcode Phone Number MAIN LAB [address] [place] [address] * IONIZED CALCIUM (11/02/2018 3:45 AM CDT) Ionized Calcium 1.29 1.0 - 1.3 MMOL/L [facility] MAIN LAB Specimen Blood Performing Organization Address [facility] Phone Number MAIN LAB [address] [place] [address] * IR GASTROSTOMY (11/01/2018 5:03 PM CDT) [...] placed over the Amplatz wire, a 22 Albanian peel-away sheath was advanced over the wire into the gastric lumen. The EZIO 1 catheter was then advanced over the Amplatz wire which was then exchanged for a stiff Glidewire. An 18 Albanian 45 cm gastrojejunostomy tube was advanced over [...] placed over the Amplatz wire, a 22 Albanian peel-away sheath was advanced over the wire into the gastric lumen. The EZIO 1 catheter was then advanced over the Amplatz wire which was then exchanged for a stiff Glidewire. An 18 Albanian 45 cm gastrojejunostomy tube was advanced over [...] on 11/02/2018 8:00 AM. Performing Organization Address [facility] HospitalMilestone Systemsny Phone Number RAD RESULTS * MAGNESIUM (11/01/2018 1:53 PM CDT) Magnesium 2.6 1.6 - 2.6 mg/dL MAIN LAB Specimen Blood Performing Organization Address [facility] Phone Number MAIN LAB [address] [place] [address] * POTASSIUM (11/01/2018 1:53 PM CDT) Potassium 5.0 3.5 - 5.1 MMOL/L MAIN LAB Specimen Blood Performing Organization Address [facility] HospitalWorld[facility]o Phone Number MAIN LAB [address] [place] [address] * IONIZED CALCIUM (11/01/2018 4:15 AM CDT) Ionized Calcium 1.29 1.0 - 1.3 MMOL/L MAIN LAB Specimen Blood Performing Organization Address [facility] Hospital[facility] Phone Number MAIN LAB [address] [place] [address] * PHOSPHORUS (11/01/2018 4:15 AM CDT) Phosphorus 4.4Comment: NOTE NEW REFERENCE 2.0 - 4.5 MG/DL [facility] MAIN LAB RANGES Specimen Blood Performing Organization Address [place]/[facility]/Zipcode Phone Number MAIN LAB [address] [place] [address] * MAGNESIUM (11/01/2018 4:15 AM CDT) Magnesium 2.0 1.6 - 2.6 mg/dL [facility] MAIN LAB Specimen Blood Performing Organization Address [place]/[facility]/Zipcode Phone Number MAIN LAB [address] [place] [address] * BASIC METABOLIC PANEL (11/01/2018 4:15 AM CDT) Sodium 138 137 - 147 MMOL/L [facility] MAIN LAB Potassium 4.0 3.5 - 5.1 MMOL/L [facility] MAIN LAB Chloride 105 98 - 110 MMOL/L [facility] CO2 23 21 - 30 MMOL/L [facility] Anion Gap 10 3 - 12 [facility] Glucose 109 (H) 70 - 100 MG/DL [facility] Blood Urea 13 7 - 25 MG/DL [facility] Nitrogen Creatinine 0.43 0.4 - 1.00 MG/DL [facility] Calcium 10.2 8.5 - 10.6 MG/DL [facility] eGFR Non >60 >60 mL/min [facility] Comment: Danish The eGFR is not validated for use in drug dosing adjustments.Continue to use estimated creatinine clearance per dosing reference text.Please contact the Clinical Pharmacist for questions. eGFR >60 >60 mL/min [facility] Danish Comment: The eGFR is not validated for use in drug dosing adjustments.Continue to use estimated creatinine clearance per dosing reference text.Please contact the Clinical Pharmacist for questions. Specimen Blood Performing Organization Address City/[facility]/Zipcode Phone Number MAIN LAB [address] [place] [address] * CBC AND DIFF (11/01/2018 4:15 AM CDT) White Blood 8.5 4.5 - 11.0 K/UL [facility] Cells RBC 3.74 (L) 4.0 - 5.0 M/UL [facility] Hemoglobin 11.4 (L) 12.0 - 15.0 GM/DL [facility] Hematocrit 35.0 (L) 36 - 45 % [facility] MCV 93.6 80 - 100 FL [facility] MCH 30.6 26 - 34 PG [facility] MCHC 32.7 32.0 - 36.0 G/DL [facility] RDW 13.6 11 - 15 % [facility] Platelet Count 588 (H) 150 - 400 K/UL [facility] MPV 10.0 7 - 11 FL [facility] Neutrophils 63 41 - 77 % [facility] Lymphocytes 22 (L) 24 - 44 % [facility] Monocytes 11 4 - 12 % [facility] Eosinophils 3 0 - 5 % [facility] Basophils 1 0 - 2 % [facility] Absolute 5.50 1.8 - 7.0 K/UL [facility] Neutrophil Count Absolute Lymph 1.80 1.0 - 4.8 K/UL [facility] Count Absolute 0.90 (H) 0 - 0.80 K/UL [facility] Monocyte Count Absolute 0.20 0 - 0.45 K/UL [facility] Eosinophil Count Absolute 0.10 0 - 0.20 K/UL [facility] Basophil Count Specimen Blood Performing Organization Address City/State/Zipcode Phone Number [facility] [address] [place] [address] * CHEST SINGLE VIEW (10/31/2018 11:48 AM CDT) Impressions Performed At Progressing mixed opacities most [...] on 10/31/2018 12:12 PM. Performing Organization Address [facility] Phone Number [facility] RESULTS * IONIZED CALCIUM (10/31/2018 2:50 AM CDT) Ionized Calcium 1.35 (H) 1.0 - 1.3 MMOL/L [facility] Specimen Blood Performing Organization Address [facility] Phone Number [facility] [address] [place] [address] * PHOSPHORUS (10/31/2018 2:50 AM CDT) Phosphorus 5.8 (H)Comment: NOTE NEW 2.0 - 4.5 MG/DL MAIN [facility] REFERENCE RANGES Specimen Blood Performing Organization Address [facility] Hospital[facility] Systemsny Phone Number MAIN LAB [address] [place] [address] * MAGNESIUM (10/31/2018 2:50 AM CDT) Magnesium 2.1 1.6 - 2.6 mg/dL [facility] Specimen Blood Performing Organization Address [facility] Phone Number [facility] [address] [place] [address] * BASIC METABOLIC PANEL (10/31/2018 2:50 AM CDT) Pathologist [facility] Sodium 139 137 - 147 MMOL/L [facility] Potassium 4.3 3.5 - 5.1 MMOL/L [facility] Chloride 108 98 - 110 MMOL/L [facility] CO2 27 21 - 30 MMOL/L [facility] Anion Gap 4 3 - 12 [facility] Glucose 126 (H) 70 - 100 MG/DL [facility] Blood Urea 14 7 - 25 MG/DL [facility] Nitrogen Creatinine 0.43 0.4 - 1.00 MG/DL [facility] Calcium 9.5 8.5 - 10.6 MG/DL [facility] eGFR Non >60 >60 mL/min [facility] Comment: Danish The eGFR is not validated for use in drug dosing adjustments.Continue to use estimated creatinine clearance per dosing reference text.Please contact the Clinical Pharmacist for questions. eGFR >60 >60 mL/min [facility] Danish Comment: The eGFR is not validated for use in drug dosing adjustments.Continue to use estimated creatinine clearance per dosing reference text.Please contact the Clinical Pharmacist for questions. Specimen Blood Performing Organization Address City/State/Zipcode Phone Number MAIN LAB [address] [place] [address] * CBC AND DIFF (10/31/2018 2:50 AM CDT) Pathologist [facility] White Blood 11.1 (H) 4.5 - 11.0 K/UL [facility] Cells RBC 2.82 (L) 4.0 - 5.0 M/UL [facility] Hemoglobin 8.9 (L) 12.0 - 15.0 GM/DL [facility] Hematocrit 26.1 (L) 36 - 45 % [facility] MCV 92.8 80 - 100 FL [facility] MCH 31.6 26 - 34 PG [facility] MCHC 34.0 32.0 - 36.0 G/DL [facility] RDW 13.7 11 - 15 % [facility] Platelet Count 545 (H) 150 - 400 K/UL [facility] MPV 9.6 7 - 11 FL [facility] Neutrophils 66 41 - 77 % [facility] Lymphocytes 22 (L) 24 - 44 % [facility] Monocytes 9 4 - 12 % [facility] Eosinophils 2 0 - 5 % [facility] Basophils 1 0 - 2 % [facility] Absolute 7.40 (H) 1.8 - 7.0 K/UL [facility] Neutrophil Count Absolute Lymph 2.40 1.0 - 4.8 K/UL [facility] Count Absolute 1.00 (H) 0 - 0.80 K/UL [facility] Monocyte Count Absolute 0.20 0 - 0.45 K/UL [facility] Eosinophil Count Absolute 0.10 0 - 0.20 K/UL [facility] Basophil Count Specimen Blood Performing Organization Address City/[facility]/Zipcode Phone Number MAIN LAB [address] [place] [address] * BASIC METABOLIC PANEL (10/30/2018 7:45 PM CDT) Sodium 138 137 - 147 MMOL/L [facility] Potassium 4.1 3.5 - 5.1 MMOL/L [facility] Chloride 105 98 - 110 MMOL/L [facility] CO2 27 21 - 30 MMOL/L [facility] Anion Gap 6 3 - 12 [facility] Glucose 107 (H) 70 - 100 MG/DL [facility] Blood Urea 13 7 - 25 MG/DL [facility] Nitrogen Creatinine 0.49 0.4 - 1.00 MG/DL [facility] Calcium 9.9 8.5 - 10.6 MG/DL [facility] eGFR Non >60 >60 mL/min [facility] Comment: Danish The eGFR is not validated for use in drug dosing adjustments.Continue to use estimated creatinine clearance per dosing reference text.Please contact the Clinical Pharmacist for questions. eGFR >60 >60 mL/min [facility] Danish Comment: The eGFR is not validated for use in drug dosing adjustments.Continue to use estimated creatinine clearance per dosing reference text.Please contact the Clinical Pharmacist for questions. Specimen Blood Performing Organization Address City/[facility]/Zipcode Phone Number MAIN LAB [address] [place] [address] * POC IONIZED CALCIUM (10/30/2018 7:25 PM CDT) Ionized 1.43 (H) 1.0 - 1.3 MMOL/L MAIN LAB Calcium-POC Performing Organization Address City/[facility]/Zipcode Phone Number MAIN LAB [address] [place] [address] * POC SODIUM (10/30/2018 7:25 PM CDT) Sodium-POC 150 (H) 137 - 147 MMOL/L [facility] Performing Organization Address [facility] Phone Number [facility] [address] [place] [address] * POC POTASSIUM (10/30/2018 7:25 PM CDT) Potassium-POC 4.2 3.5 - 5.1 MMOL/L [facility] Performing Organization Address [facility] Phone Number MA[facility] LAB [address] [place] [address] * POC HEMATOCRIT (10/30/2018 7:25 PM CDT) Hemoglobin POC 11.2 (L) 12.0 - 15.0 GM/DL [facility] Hematocrit POC 33.0 (L) 36 - 45 % [facility] Performing Organization Address [facility] Phone Number [facility] [address] [place] [address] * POC BLOOD GAS ARTERIAL (10/30/2018 7:25 PM CDT) PH-ART-POC 7.34 (L) 7.35 - 7.45 [facility] HTR7-PEG-GZF 50 (H) 35 - 45 MMHG [facility] PO2-ART-POC 103 (H) 80 - 100 MMHG [facility] Base Ex-ART-POC 1.0 MMOL/L MAIN LAB O2 Sat-ART-POC 97.0 95 - 99 % [facility] Bicarbonate-ART 27.2 21 - 28 MMOL/L [facility] -POC Performing Organization Address [facility] Phone Number MAIN LAB [address] [place] [address] * SURGICAL PATHOLOGY (10/30/2018 9:38 AM CDT) PATHOLOGY [email or web address] Department of Pathology and Laboratory Medicine [address] [place] [address] Surgical Pathology Office:[phone] :[phone] SURGICAL PATHOLOGY REPORT NAME: ETELVINA ALONSO SURG PATH #: [id number] MR #: [id number] SPECIMEN CLASS: [facility] BILLING #: [id number] ALT ID #:LOCATION: [id number] DATE OF PROCEDURE: [...] report. +++ +++ Kartik Mabry MD Resident [facility]/10/30/2018 ############################## ############################## ############ Material Received: A: mastoid contents History: 58-year-old female history of altered mental status, unspecified altered mental status type Gross Description: A. Fixative: Formalin Labeled: "Mastoid contents" Dimensions: 1.0 x 0.2 x 0.2 cm in aggregate Decalcification solution used: No Cassette A1- Dip Dyer section of specimen.(lmt) lt10/30/2018 Performing Organization Address City/State/Zipcode Phone Number [facility] [address] [place] [address] * IONIZED CALCIUM (10/30/2018 4:05 AM CDT) Ionized Calcium 1.26 1.0 - 1.3 MMOL/L [facility] Specimen Blood Performing Organization Address City/[facility] Phone Number [facility] [address] [place] [address] * PHOSPHORUS (10/30/2018 4:05 AM CDT) Phosphorus 5.8 (H)Comment: NOTE NEW 2.0 - 4.5 MG/DL [facility] REFERENCE RANGES Specimen Blood Performing Organization Address City/[facility] Phone Number [facility] [address] [place] [address] * MAGNESIUM (10/30/2018 4:05 AM CDT) Magnesium 2.1 1.6 - 2.6 mg/dL [facility] Specimen Blood Performing Organization Address [facility] Phone Number [facility] [address] [place] [address] * BASIC METABOLIC PANEL (10/30/2018 4:05 AM CDT) Sodium 135 (L) 137 - 147 MMOL/L [facility] Potassium 4.1 3.5 - 5.1 MMOL/L [facility] Chloride 106 98 - 110 MMOL/L [facility] CO2 25 21 - 30 MMOL/L [facility] Anion Gap 4 3 - 12 [facility] Glucose 146 (H) 70 - 100 MG/DL [facility] Blood Urea 12 7 - 25 MG/DL [facility] Nitrogen Creatinine 0.44 0.4 - 1.00 MG/DL [facility] Calcium 9.3 8.5 - 10.6 MG/DL [facility] eGFR Non >60 >60 mL/min [facility] Comment: Danish The eGFR is not validated for use in drug dosing adjustments.Continue to use estimated creatinine clearance per dosing reference text.Please contact the Clinical Pharmacist for questions. eGFR >60 >60 mL/min [facility] Danish Comment: The eGFR is not validated for use in drug dosing adjustments.Continue to use estimated creatinine clearance per dosing reference text.Please contact the Clinical Pharmacist for questions. Specimen Blood Performing Organization Address City/[facility]/Zipcode Phone Number MAIN LAB [address] [place] [address] * CBC AND DIFF (10/30/2018 4:05 AM CDT) White Blood 11.0 4.5 - 11.0 K/UL [facility] Cells RBC 2.74 (L) 4.0 - 5.0 M/UL [facility] Hemoglobin 8.6 (L) 12.0 - 15.0 GM/DL [facility] Hematocrit 25.4 (L) 36 - 45 % [facility] MCV 92.4 80 - 100 FL [facility] MCH 31.2 26 - 34 PG [facility] MCHC 33.8 32.0 - 36.0 G/DL [facility] RDW 14.1 11 - 15 % [facility] Platelet Count 481 (H) 150 - 400 K/UL [facility] MPV 9.9 7 - 11 FL [facility] Neutrophils 62 41 - 77 % [facility] Lymphocytes 22 (L) 24 - 44 % [facility] Monocytes 12 4 - 12 % [facility] Eosinophils 2 0 - 5 % [facility] Basophils 2 0 - 2 % [facility] Absolute 6.90 1.8 - 7.0 K/UL [facility] Neutrophil Count Absolute Lymph 2.40 1.0 - 4.8 K/UL [facility] Count Absolute 1.30 (H) 0 - 0.80 K/UL [facility] Monocyte Count Absolute 0.20 0 - 0.45 K/UL [facility] Eosinophil Count Absolute 0.20 0 - 0.20 K/UL MAIN [facility] Basophil Count Specimen Blood Performing Organization Address City/[facility] Phone Number MA[facility] [address] [place] [address] * POC IONIZED CALCIUM (10/29/2018 3:37 PM CDT) Ionized 1.29 1.0 - 1.3 MMOL/L MAIN LAB Calcium-POC Performing Organization Address City/[facility] Phone Number MA[facility] [address] [place] [address] * POC SODIUM (10/29/2018 3:37 PM CDT) Sodium-POC 139 137 - 147 MMOL/L [facility] Performing Organization Address [facility] Phone Number MA[facility] [address] [place] [address] * POC POTASSIUM (10/29/2018 3:37 PM CDT) Potassium-POC 4.2 3.5 - 5.1 MMOL/L [facility] Performing Organization Address [facility] Phone Number MA[facility] [address] [place] [address] * POC HEMATOCRIT (10/29/2018 3:37 PM CDT) Hemoglobin POC 8.8 (L) 12.0 - 15.0 GM/DL [facility] Hematocrit POC 26.0 (L) 36 - 45 % [facility] Performing Organization Address [facility] Phone Number [facility] [address] [place] [address] * POC BLOOD GAS RAYO (10/29/2018 3:37 PM CDT) PH-RAYO-POC 7.33 7.30 - 7.40 [facility] IFJ5-LFT-QCG 48 36 - 50 MMHG [facility] PO2-RAYO-POC 51 (H) 33 - 48 MMHG [facility] Base Ex-RAYO-POC 0.0 MMOL/L [facility] O2 Sat-RAYO-POC 83.0 (H) 55 - 71 % [facility] Bicarbonate-RAYO 25.5 MMOL/L [facility] -POC Performing Organization Address [facility] Phone Number [facility] [address] [place] [address] * US ABDOMEN COMPLETE (10/29/2018 8:13 AM [...] Juvenal Avitia M.D. on 10/29/2018 8:28 AM. Narrative [...] on 10/29/2018 8:28 AM. Performing Organization Address [facility] Phone Number RAD RESULTS * BLOOD TYPE CONFIRMATION - ORDER ONLY IF REQUESTED BY LAB (10/29/2018 4:18 AM CDT) ABO/RH(D) O POS [facility] Performing Organization Address [facility] Phone Number [facility] [address] [place] [address] * IONIZED CALCIUM (10/29/2018 4:18 AM CDT) Ionized Calcium 1.22 1.0 - 1.3 MMOL/L [facility] Specimen Blood Performing Organization Address [facility] Phone Number [facility] [address] [place] [address] * PHOSPHORUS (10/29/2018 4:18 AM CDT) Phosphorus 4.8 (H)Comment: NOTE NEW 2.0 - 4.5 MG/DL [facility]IN [facility] REFERENCE RANGES Specimen Blood Performing Organization Address [facility] Phone Number [facility] [address] [place] [address] * MAGNESIUM (10/29/2018 4:18 AM CDT) Magnesium 2.3 1.6 - 2.6 mg/dL [facility] Specimen Blood Performing Organization Address [facility] Phone Number [facility] [address] [place] [address] * BASIC METABOLIC PANEL (10/29/2018 4:18 AM CDT) Sodium 138 137 - 147 MMOL/L MAIN LAB Potassium 4.4 3.5 - 5.1 MMOL/L [facility] Chloride 107 98 - 110 MMOL/L [facility] CO2 25 21 - 30 MMOL/L [facility] Anion Gap 6 3 - 12 [facility] Glucose 131 (H) 70 - 100 MG/DL [facility] Blood Urea 14 7 - 25 MG/DL [facility] Nitrogen Creatinine 0.40 0.4 - 1.00 MG/DL [facility] Calcium 9.8 8.5 - 10.6 MG/DL [facility] eGFR Non >60 >60 mL/min [facility] Comment: Danish The eGFR is not validated for use in drug dosing adjustments.Continue to use estimated creatinine clearance per dosing reference text.Please contact the Clinical Pharmacist for questions. eGFR >60 >60 mL/min [facility] Danish Comment: The eGFR is not validated for use in drug dosing adjustments.Continue to use estimated creatinine clearance per dosing reference text.Please contact the Clinical Pharmacist for questions. Specimen Blood Performing Organization Address City/State/Zipcode Phone Number MAIN LAB [address] [place] [address] * CBC AND DIFF (10/29/2018 4:18 AM CDT) White Blood 11.7 (H) 4.5 - 11.0 K/UL [facility] Cells RBC 2.44 (L) 4.0 - 5.0 M/UL [facility] Hemoglobin 7.5 (L) 12.0 - 15.0 GM/DL [facility] Hematocrit 23.0 (L) 36 - 45 % [facility] MCV 94.2 80 - 100 FL [facility] MCH 30.9 26 - 34 PG [facility] MCHC 32.8 32.0 - 36.0 G/DL [facility] RDW 13.5 11 - 15 % [facility] Platelet Count 480 (H) 150 - 400 K/UL [facility] MPV 10.3 7 - 11 FL [facility] Neutrophils 67 41 - 77 % [facility] Lymphocytes 20 (L) 24 - 44 % [facility] Monocytes 10 4 - 12 % [facility] Eosinophils 2 0 - 5 % [facility] Basophils 1 0 - 2 % [facility] Absolute 7.90 (H) 1.8 - 7.0 K/UL [facility] Neutrophil Count Absolute Lymph 2.40 1.0 - 4.8 K/UL [facility] Count Absolute 1.20 (H) 0 - 0.80 K/UL [facility] Monocyte Count Absolute 0.20 0 - 0.45 K/UL [facility] Eosinophil Count Absolute 0.10 0 - 0.20 K/UL [facility] Basophil Count Specimen Blood Performing Organization Address City/[facility]/Zipcode Phone Number MAIN LAB [address] [place] [address] * TYPE & CROSSMATCH (10/28/2018 5:01 PM CDT) Units Ordered 1 MAIN LAB Crossmatch 10/31/2018 [facility] Expires Record Check 2ND TYPE REQUIRED [facility] ABO/RH(D) O POS [facility] Antibody Screen NEG [facility] Electronic YES [facility] Crossmatch Unit Number [id number] MAIN LAB Blood Component RBC,ADSOL,LEUKO REDUCED [facility] Type Unit Division 0 MAIN LAB Status OF Unit TRANSFUSED [facility] Transfusion OK TO TRANSFUSE MAIN LAB Status Crossmatch COMPATIBLE,ELECTRONIC MAIN LAB Result Specimen Blood Performing Organization Address [facility]/Zipcode Phone Number MAIN LAB [address] [place] [address] * POTASSIUM (10/28/2018 2:14 PM CDT) Pathologist [facility] Potassium 5.1 3.5 - 5.1 MMOL/L MAIN LAB Specimen Blood Performing Organization Address City/[facility] Phone Number [facility] [address] [place] [address] * IRON + BINDING CAPACITY + %SAT+ FERRITIN (10/28/2018 2:14 PM CDT) Iron 21 (L) 50 - 160 MCG/DL MAIN LAB Iron 344 270 - 380 MCG/DL MAIN LAB Binding-TIBC % Saturation 6 (L) 28 - 42 % MAIN LAB Ferritin 168 10 - 200 NG/ML [facility] Specimen Blood Performing Organization Address City/[facility]/Zipcode Phone Number MAIN LAB [address] [place] [address] * RETICULOCYTE COUNT (10/28/2018 2:14 PM CDT) Retic, 2.1 (H) 0.5 - 2.0 % [facility] Uncorrected Retic, 1.3 % [facility] Corrected Retic, Absolute 59.2 30 - 94 K/UL MAIN LAB Specimen Blood Performing Organization Address City/[facility]/Zipcode Phone Number MAIN LAB [address] [place] [address] * IONIZED CALCIUM (10/28/2018 3:51 AM CDT) Ionized Calcium 1.32 (H) 1.0 - 1.3 MMOL/L [facility] Specimen Blood Performing Organization Address City/[facility] Phone Number [facility] [address] [place] [address] * PHOSPHORUS (10/28/2018 3:43 AM CDT) Phosphorus 4.4Comment: NOTE NEW REFERENCE 2.0 - 4.5 MG/DL [facility] RANGES Specimen Blood Performing Organization Address [facility] Phone Number [facility] [address] [place] [address] * MAGNESIUM (10/28/2018 3:43 AM CDT) Magnesium 2.2 1.6 - 2.6 mg/dL [facility] Specimen Blood Performing Organization Address [facility] Phone Number MAIN LAB [address] [place] [address] * BASIC METABOLIC PANEL (10/28/2018 3:43 AM CDT) Sodium 138 137 - 147 MMOL/L [facility] Potassium 3.9 3.5 - 5.1 MMOL/L [facility] Chloride 107 98 - 110 MMOL/L [facility] CO2 26 21 - 30 MMOL/L [facility] Anion Gap 5 3 - 12 [facility] Glucose 172 (H) 70 - 100 MG/DL [facility] Blood Urea 14 7 - 25 MG/DL [facility] Nitrogen Creatinine 0.42 0.4 - 1.00 MG/DL [facility] Calcium 8.9 8.5 - 10.6 MG/DL [facility] eGFR Non >60 >60 mL/min [facility] Comment: Danish The eGFR is not validated for use in drug dosing adjustments.Continue to use estimated creatinine clearance per dosing reference text.Please contact the Clinical Pharmacist for questions. eGFR >60 >60 mL/min [facility] Danish Comment: The eGFR is not validated for use in drug dosing adjustments.Continue to use estimated creatinine clearance per dosing reference text.Please contact the Clinical Pharmacist for questions. Specimen Blood Performing Organization Address [facility]/Zipcode Phone Number MAIN LAB [address] [place] [address] * CBC AND DIFF (10/28/2018 3:43 AM CDT) Pathologist [facility] White Blood 11.9 (H) 4.5 - 11.0 K/UL [facility] Cells RBC 2.46 (L) 4.0 - 5.0 M/UL [facility] Hemoglobin 7.5 (L) 12.0 - 15.0 GM/DL [facility] Hematocrit 23.0 (L) 36 - 45 % [facility] MCV 93.4 80 - 100 FL [facility] MCH 30.6 26 - 34 PG [facility] MCHC 32.7 32.0 - 36.0 G/DL [facility] RDW 13.7 11 - 15 % [facility] Platelet Count 454 (H) 150 - 400 K/UL [facility] MPV 10.4 7 - 11 FL [facility] Neutrophils 72 41 - 77 % [facility] Lymphocytes 17 (L) 24 - 44 % [facility] Monocytes 9 4 - 12 % [facility] Eosinophils 2 0 - 5 % [facility] Basophils 0 0 - 2 % MAIN LAB Absolute 8.50 (H) 1.8 - 7.0 K/UL [facility] Neutrophil Count Absolute Lymph 2.00 1.0 - 4.8 K/UL [facility] Count Absolute 1.10 (H) 0 - 0.80 K/UL [facility] Monocyte Count Absolute 0.20 0 - 0.45 K/UL [facility] Eosinophil Count Absolute 0.10 0 - 0.20 K/UL [facility] Basophil Count Specimen Blood Performing Organization Address City/[facility]/Zipcode Phone Number MAIN LAB [address] [place] [address] * IONIZED CALCIUM (10/27/2018 4:38 AM CDT) [facility] Ionized Calcium 1.26 1.0 - 1.3 MMOL/L MAIN LAB Specimen Blood Performing Organization Address City/[facility]/Zipcode Phone Number MAIN LAB [address] [place] [address] * BLOOD GASES, ARTERIAL (10/27/2018 4:38 AM CDT) [facility] pH-Arterial 7.37 7.35 - 7.45 MAIN LAB pCO2-Arterial 41 35 - 45 MMHG [facility] pO2-Arterial 124 (H) 80 - 100 MMHG [facility] Base 1.7 MMOL/L [facility] Deficit-Arteria l O2 Sat-Arterial 98.6 95 - 99 % [facility] Bicarbonate-ART 23.0 21 - 28 MMOL/L [facility] -[place]arl Specimen Blood, arterial - Blood Performing Organization Address [facility]/Zipcode Phone Number MAIN LAB [address] [place] [address] * PHOSPHORUS (10/27/2018 4:18 AM CDT) Phosphorus 4.0Comment: NOTE NEW REFERENCE 2.0 - 4.5 MG/DL [facility] RANGES Specimen Blood Performing Organization Address [facility] Phone Number [facility] [address] [place] [address] * MAGNESIUM (10/27/2018 4:18 AM CDT) Magnesium 2.2 1.6 - 2.6 mg/dL [facility] Specimen Blood Performing Organization Address [facility] Phone Number [facility] [address] [place] [address] * BASIC METABOLIC PANEL (10/27/2018 4:18 AM CDT) Sodium 138 137 - 147 MMOL/L [facility] Potassium 3.9 3.5 - 5.1 MMOL/L [facility] Chloride 109 98 - 110 MMOL/L [facility] CO2 24 21 - 30 MMOL/L [facility] Anion Gap 5 3 - 12 [facility] Glucose 176 (H) 70 - 100 MG/DL [facility] Blood Urea 13 7 - 25 MG/DL [facility] Nitrogen Creatinine 0.40 0.4 - 1.00 MG/DL [facility] Calcium 9.0 8.5 - 10.6 MG/DL [facility] eGFR Non >60 >60 mL/min [facility] Comment: Danish The eGFR is not validated for use in drug dosing adjustments.Continue to use estimated creatinine clearance per dosing reference text.Please contact the Clinical Pharmacist for questions. eGFR >60 >60 mL/min MAIN LAB Danish Comment: The eGFR is not validated for use in drug dosing adjustments.Continue to use estimated creatinine clearance per dosing reference text.Please contact the Clinical Pharmacist for questions. Specimen Blood Performing Organization Address [facility]/Zipcode Phone Number MAIN LAB [address] [place] [address] * CBC AND DIFF (10/27/2018 4:18 AM CDT) White Blood 13.9 (H) 4.5 - 11.0 K/UL [facility] Cells RBC 2.51 (L) 4.0 - 5.0 M/UL [facility] Hemoglobin 7.7 (L) 12.0 - 15.0 GM/DL [facility] MAIN LAB Hematocrit 23.6 (L) 36 - 45 % [facility] MCV 93.9 80 - 100 FL [facility] MCH 30.7 26 - 34 PG [facility] MCHC 32.7 32.0 - 36.0 G/DL [facility] RDW 14.1 11 - 15 % [facility] Platelet Count 435 (H) 150 - 400 K/UL [facility] MPV 10.7 7 - 11 FL [facility] Neutrophils 78 (H) 41 - 77 % [facility] Lymphocytes 13 (L) 24 - 44 % [facility] Monocytes 7 4 - 12 % [facility] Eosinophils 1 0 - 5 % [facility] Basophils 1 0 - 2 % [facility] Absolute 10.80 (H) 1.8 - 7.0 K/UL [facility] Neutrophil Count Absolute Lymph 1.80 1.0 - 4.8 K/UL [facility] Count Absolute 1.00 (H) 0 - 0.80 K/UL [facility] Monocyte Count Absolute 0.20 0 - 0.45 K/UL [facility] Eosinophil Count Absolute 0.10 0 - 0.20 K/UL [facility] Basophil Count Specimen Blood Performing Organization Address City/[facility] Phone Number [facility] [address] [place] [address] * LIVER FUNCTION PANEL (10/27/2018 4:18 AM CDT) Total Bilirubin 0.2 (L) 0.3 - 1.2 [...] MAIN LAB Specimen Blood Performing Organization Address City/State[facility] Phone Number [facility] [address] [place] [address] * POTASSIUM (10/26/2018 8:52 PM CDT) Potassium 4.1 3.5 - 5.1 MMOL/L [facility] MAIN LAB Specimen Blood Performing Organization Address [facility] Phone Number [facility] MA[facility] [address] [place] [address] * MRI HEAD WO/W CONTRAST (10/26/2018 5:18 AM CDT) Impressions Performed At 1. Evolution of abnormal [...] on 10/26/2018 8:01 AM. Performing Organization Address City/State/Zipcode Phone Number [facility] RAD RESULTS * PHOSPHORUS (10/26/2018 3:16 AM CDT) Phosphorus 3.8Comment: NOTE NEW REFERENCE 2.0 - 4.5 MG/DL MAIN LAB RANGES Specimen Blood Performing Organization Address City/[facility]/Zipcode Phone Number MAIN LAB [address] [place] [address] * MAGNESIUM (10/26/2018 3:16 AM CDT) Pathologist [facility] Magnesium 2.2 1.6 - 2.6 mg/dL [facility] MAIN LAB Specimen Blood Performing Organization Address City/State/Zipcode Phone Number MAIN LAB [address] [place] [address] * BASIC METABOLIC PANEL (10/26/2018 3:16 AM CDT) Pathologist [facility] Sodium 140 137 - 147 MMOL/L [facility] MAIN LAB Potassium 3.6 3.5 - 5.1 MMOL/L [facility] MAIN [facility] Chloride 110 98 - 110 MMOL/L [facility] MAIN LAB CO2 24 21 - 30 MMOL/L [facility] MA[facility] Anion Gap 6 3 - 12 [facility] MA[facility] Glucose 161 (H) 70 - 100 MG/DL [facility] MAIN LAB Blood Urea 12 7 - 25 MG/DL [facility] MAIN LAB Nitrogen Creatinine 0.41 0.4 - 1.00 MG/DL [facility] MAIN LAB Calcium 8.3 (L) 8.5 - 10.6 MG/DL [facility] MAIN LAB eGFR Non >60 >60 mL/min [facility] MAIN LAB Comment: Danish The eGFR is not validated for use in drug dosing adjustments.Continue to use estimated creatinine clearance per dosing reference text.Please contact the Clinical Pharmacist for questions. eGFR >60 >60 mL/min [facility] MAIN LAB Danish Comment: The eGFR is not validated for use in drug dosing adjustments.Continue to use estimated creatinine clearance per dosing reference text.Please contact the Clinical Pharmacist for questions. Specimen Blood Performing Organization Address City/[facility]/Zipcode Phone Number MAIN LAB [address] [place] [address] * CBC AND DIFF (10/26/2018 3:16 AM CDT) White Blood 12.6 (H) 4.5 - 11.0 K/UL [facility] MAIN LAB Cells RBC 2.51 (L) 4.0 - 5.0 M/UL [facility] MAIN LAB Hemoglobin 7.8 (L) 12.0 - 15.0 GM/DL [facility] MAIN LAB Hematocrit 23.7 (L) 36 - 45 % [facility] MAIN LAB MCV 94.4 80 - 100 FL [facility] MAIN LAB MCH 31.2 26 - 34 PG [facility] MAIN LAB MCHC 33.0 32.0 - 36.0 G/DL [facility] MAIN LAB RDW 14.1 11 - 15 % [facility] MAIN LAB Platelet Count 355 150 - 400 K/UL [facility] MAIN LAB MPV 9.9 7 - 11 FL [facility] MAIN LAB Neutrophils 77 41 - 77 % [facility] MAIN LAB Lymphocytes 16 (L) 24 - 44 % MAIN LAB Monocytes 5 4 - 12 % MAIN LAB Eosinophils 2 0 - 5 % MAIN LAB Basophils 0 0 - 2 % MAIN LAB Absolute 9.50 (H) 1.8 - 7.0 K/UL [facility] MAIN LAB Neutrophil Count Absolute Lymph 2.10 1.0 - 4.8 K/UL [facility] MAIN LAB Count Absolute 0.70 0 - 0.80 K/UL MAIN LAB Monocyte Count Absolute 0.30 0 - 0.45 K/UL MAIN LAB Eosinophil Count Absolute 0.00 0 - 0.20 K/UL MAIN LAB Basophil Count Specimen Blood Performing Organization Address City/[facility]/Zipcode Phone Number MAIN LAB [address] [phone] * IONIZED CALCIUM (10/26/2018 3:16 AM CDT) Ionized Calcium 1.20 1.0 - 1.3 MMOL/L MAIN LAB Specimen Blood Performing Organization Address City/[facility] Phone Number MAIN LAB [address] [place] [phone] * PHOSPHORUS (10/25/2018 2:00 PM CDT) Phosphorus 3.2Comment: NOTE NEW REFERENCE 2.0 - 4.5 MG/DL MAIN LAB RANGES Specimen Blood Performing Organization Address City/[facility] Phone Number MAIN LAB [address] [place] [address] * POTASSIUM (10/25/2018 8:15 AM CDT) Potassium 4.4 3.5 - 5.1 MMOL/L MAIN LAB Specimen Blood Performing Organization Address City/[facility]/Zipcode Phone Number MAIN LAB [address] [place] [address] * POC GLUCOSE (10/25/2018 6:30 AM CDT) Glucose, POC 161 (H) 70 - 100 MG/DL MAIN LAB Performing Organization Address [facility] Phone Number MAIN LAB [address] [place] [address] * CHEST SINGLE VIEW (10/25/2018 4:08 AM CDT) Impressions Performed At Mild cardiomegaly and pulmonary venous congestion with small left pleural [facility] RAD RESULTS effusion and bibasilar atelectasis. Approved by Leo Paz M.D. on 10/25/2018 11:04 AM By my electronic signature, I attest that I have personally reviewed the images for this examination and formulated the interpretations and opinions expressed in this report Finalized by Dash Arriaga D.O. on 10/25/2018 12:46 PM. Dictated by Leo Paz M.D. on 10/25/2018 10:20 AM. 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 Right IJ central venous catheter and endotracheal tube remain in similar position. Nasogastric tube has been removed, with placement of a nasoenteric tube that travels below the diaphragm and out of the [id number]-[id number]. There is mild cardiomegaly with mild pulmonary venous congestion. There is a small left pleural effusion. There is mild bibasilar atelectasis. No pneumothorax. 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 Right IJ central venous catheter and endotracheal tube remain in similar position. Nasogastric tube has been removed, with placement of a nasoenteric tube that travels below the diaphragm and out of the flism-nl-jada. There is mild cardiomegaly with mild pulmonary venous congestion. There is a small left pleural effusion. There is mild bibasilar atelectasis. No pneumothorax. IMPRESSION Mild cardiomegaly and pulmonary venous congestion with small left pleural effusion and bibasilar atelectasis. Approved by Leo Paz M.D. on 10/25/2018 11:04 AM By my electronic signature, I attest that I have personally reviewed the images for this examination and formulated the interpretations and opinions expressed in this report Finalized by Dash Arriaga D.O. on 10/25/2018 12:46 PM. Dictated by Leo Paz M.D. on 10/25/2018 10:20 AM. Performing Organization Address City/[facility]/Zipcode Phone Number RAD RESULTS * PHOSPHORUS (10/25/2018 3:19 AM CDT) Phosphorus 1.6 (L)Comment: NOTE NEW 2.0 - 4.5 MG/DL [facility] MAIN LAB REFERENCE RANGES Specimen Blood Performing Organization Address [facility] Phone Number MAIN LAB [address] [place] [address] * MAGNESIUM (10/25/2018 3:19 AM CDT) Magnesium 2.2 1.6 - 2.6 mg/dL [facility] MAIN LAB Specimen Blood Performing Organization Address [facility] Phone Number MAIN LAB [address] [place] [phone] * BASIC METABOLIC PANEL (10/25/2018 3:19 AM CDT) Sodium 140 137 - 147 MMOL/L [facility] MAIN LAB Potassium 3.8 3.5 - 5.1 MMOL/L [facility] MAIN LAB Chloride 107 98 - 110 MMOL/L [facility] MAIN LAB CO2 30 21 - 30 MMOL/L [facility] MAIN LAB Anion Gap 3 3 - 12 [facility] MAIN LAB Glucose 164 (H) 70 - 100 MG/DL [facility] MAIN LAB Blood Urea 9 7 - 25 MG/DL [facility] MAIN LAB Nitrogen Creatinine 0.36 (L) 0.4 - 1.00 MG/DL [facility] MAIN LAB Calcium 7.9 (L) 8.5 - 10.6 MG/DL [facility] MAIN LAB eGFR Non >60 >60 mL/min [facility] MAIN LAB Comment: Danish The eGFR is not validated for use in drug dosing adjustments.Continue to use estimated creatinine clearance per dosing reference text.Please contact the Clinical Pharmacist for questions. eGFR >60 >60 mL/min [facility] MAIN LAB Danish Comment: The eGFR is not validated for use in drug dosing adjustments.Continue to use estimated creatinine clearance per dosing reference text.Please contact the Clinical Pharmacist for questions. Specimen Blood Performing Organization Address [facility] Phone Number MAIN LAB [address] [place] [address] * CBC AND DIFF (10/25/2018 3:19 AM CDT) White Blood 13.9 (H) 4.5 - 11.0 K/UL [facility] MAIN LAB Cells RBC 2.56 (L) 4.0 - 5.0 M/UL [facility] MAIN LAB Hemoglobin 8.0 (L) 12.0 - 15.0 GM/DL [facility] MAIN LAB Hematocrit 24.2 (L) 36 - 45 % [facility] MAIN LAB MCV 94.8 80 - 100 FL [facility] MAIN LAB MCH 31.2 26 - 34 PG [facility] MAIN LAB MCHC 32.9 32.0 - 36.0 G/DL MAIN LAB RDW 13.7 11 - 15 % [facility] MAIN LAB Platelet Count 327 150 - 400 K/UL [facility] MAIN LAB MPV 9.3 7 - 11 FL [facility] MAIN LAB Neutrophils 81 (H) 41 - 77 % [facility] MAIN LAB Lymphocytes 11 (L) 24 - 44 % [facility] MAIN LAB Monocytes 6 4 - 12 % MAIN LAB Eosinophils 2 0 - 5 % MAIN LAB Basophils 0 0 - 2 % MAIN LAB Absolute 11.30 (H) 1.8 - 7.0 K/UL [facility] MAIN LAB Neutrophil Count Absolute Lymph 1.60 1.0 - 4.8 K/UL MAIN LAB Count Absolute 0.80 0 - 0.80 K/UL MAIN LAB Monocyte Count Absolute 0.20 0 - 0.45 K/UL MAIN LAB Eosinophil Count Absolute 0.00 0 - 0.20 K/UL MAIN LAB Basophil Count Specimen Blood Performing Organization Address City/[facility] Phone Number MAIN LAB [address] [phone] * AMMONIA (10/25/2018 3:19 AM CDT) Ammonia 50 (H) 9 - 35 MCMOL/L MAIN LAB Specimen Blood Performing Organization Address City/[facility] Phone Number MAIN LAB [address] [place] [address] * IONIZED CALCIUM (10/25/2018 3:19 AM CDT) Ionized Calcium 1.15 1.0 - 1.3 MMOL/L MAIN LAB Specimen Blood Performing Organization Address [facility] Phone Number MAIN LAB [address] [place] [address] * POC GLUCOSE (10/24/2018 10:00 PM CDT) Glucose, POC 147 (H) 70 - 100 MG/DL MAIN LAB Performing Organization Address City/[facility] Phone Number MAIN LAB [address] [place] [address] * C DIFFICILE BY PCR (10/24/2018 6:30 PM CDT) Battery Name C DIFFICILE PCR [facility] MAIN LAB Specimen FECES [facility] MAIN LAB Description Special NONE MAIN LAB Requests C. Difficile NEGATIVE-wait 7 days to repeat MAIN LAB Toxin B PCR test Report Status FINAL MAIN LAB 10/25/2018 Specimen Feces Performing Organization Address City/[facility] Phone Number MAIN LAB [address] [place] [address] * POTASSIUM (10/24/2018 9:56 AM CDT) Potassium 3.5 3.5 - 5.1 MMOL/L MAIN LAB Specimen Blood Performing Organization Address City/[facility] Phone Number MAIN LAB [address] [place] [address] * MAGNESIUM (10/24/2018 9:56 AM CDT) Magnesium 2.5 1.6 - 2.6 mg/dL MAIN LAB Specimen Blood Performing Organization Address City/[facility] Phone Number MAIN LAB [address] [place] [address] * VANCOMYCIN TROUGH (10/24/2018 9:56 AM CDT) Vancomycin 11.8 10.0 - 20.0 MCG/ML MAIN LAB Trough Specimen Blood, venous - Blood Performing Organization Address [facility] Phone Number MAIN LAB [address] [place] [address] * IONIZED CALCIUM (10/24/2018 2:00 AM CDT) Ionized Calcium 1.17 1.0 - 1.3 MMOL/L MAIN LAB Specimen Blood Performing Organization Address City/[facility] Phone Number MAIN LAB [address] [place] [address] * PHOSPHORUS (10/24/2018 2:00 AM CDT) Phosphorus 2.5Comment: NOTE NEW REFERENCE 2.0 - 4.5 MG/DL MAIN LAB RANGES Specimen Blood Performing Organization Address City/[facility]/Zipcode Phone Number [facility] MAIN [facility] [address] [place] [address] * MAGNESIUM (10/24/2018 2:00 AM CDT) Magnesium 1.9 1.6 - 2.6 mg/dL [facility] MAIN LAB Specimen Blood Performing Organization Address City/[facility]/Zipcode Phone Number [facility] MAIN [facility] [address] [place] [address] * CBC AND DIFF (10/24/2018 2:00 AM CDT) White Blood 16.3 (H) 4.5 - 11.0 K/UL [facility] MAIN LAB Cells RBC 2.87 (L) 4.0 - 5.0 M/UL [facility] MAIN LAB Hemoglobin 8.9 (L) 12.0 - 15.0 GM/DL [facility] MAIN LAB Hematocrit 27.1 (L) 36 - 45 % [facility] MAIN LAB MCV 94.7 80 - 100 FL [facility] MAIN LAB MCH 30.9 26 - 34 PG [facility] MAIN LAB MCHC 32.6 32.0 - 36.0 G/DL [facility] MAIN LAB RDW 14.1 11 - 15 % [facility] MAIN LAB Platelet Count 378 150 - 400 K/UL [facility] MAIN LAB MPV 8.8 7 - 11 FL [facility] MAIN LAB Neutrophils 77 41 - 77 % [facility] MAIN LAB Lymphocytes 15 (L) 24 - 44 % [facility] MAIN LAB Monocytes 5 4 - 12 % [facility] MAIN LAB Eosinophils 2 0 - 5 % [facility] MAIN LAB Basophils 1 0 - 2 % [facility] MAIN LAB Absolute 12.70 (H) 1.8 - 7.0 K/UL [facility] MAIN LAB Neutrophil Count Absolute Lymph 2.40 1.0 - 4.8 K/UL [facility] MAIN LAB Count Absolute 0.80 0 - 0.80 K/UL [facility] MAIN LAB Monocyte Count Absolute 0.30 0 - 0.45 K/UL [facility] MAIN LAB Eosinophil Count Absolute 0.10 0 - 0.20 K/UL [facility] MAIN LAB Basophil Count Specimen Blood Performing Organization Address City/[facility]/Zipcode Phone Number MAIN LAB [address] [place] [address] * BASIC METABOLIC PANEL (10/24/2018 2:00 AM CDT) Pathologist [facility] Sodium 140 137 - 147 MMOL/L [facility] MAIN LAB Potassium 3.5 3.5 - 5.1 MMOL/L [facility] MAIN LAB Chloride 103 98 - 110 MMOL/L [facility] MAIN LAB CO2 34 (H) 21 - 30 MMOL/L [facility] MAIN LAB Anion Gap 3 3 - 12 [facility] MAIN LAB Glucose 115 (H) 70 - 100 MG/DL [facility] MAIN LAB Blood Urea 8 7 - 25 MG/DL [facility] MAIN LAB Nitrogen Creatinine 0.37 (L) 0.4 - 1.00 MG/DL [facility] MAIN LAB Calcium 8.2 (L) 8.5 - 10.6 MG/DL [facility] MAIN LAB eGFR Non >60 >60 mL/min [facility] MAIN LAB Comment: Danish The eGFR is not validated for use in drug dosing adjustments.Continue to use estimated creatinine clearance per dosing reference text.Please contact the Clinical Pharmacist for questions. eGFR >60 >60 mL/min [facility] MAIN LAB Danish Comment: The eGFR is not validated for use in drug dosing adjustments.Continue to use estimated creatinine clearance per dosing reference text.Please contact the Clinical Pharmacist for questions. Specimen Blood Performing Organization Address City/State/Zipcode Phone Number [facility] MAIN [facility] [address] [place] [address] * ABDOMEN AP ONLY (10/23/2018 9:27 PM CDT) Impressions Performed At Pyloric or duodenal bulb position of the tip of the enteric tube. [facility] RAD RESULTS Finalized by Eddie Galindo M.D. on 10/24/2018 6:36 AM. Dictated by Eddie Galindo M.D. on 10/24/2018 6:35 AM. Narrative Performed At [facility] RAD RESULTS Technique: Single portable AP supine view of the abdomen was obtained. Comparison: Comparison is made to an examination of 10/21/2018. Findings: The lower chest and upper abdomen are included in the [id number]-bh-[id number]. There is generalized cardiomegaly. There are zones [...] Radiant Results - 10/24/2018 6:39 AM CDT [facility] Technique: Single portable AP supine view of the abdomen was obtained. Comparison: Comparison is made to an examination of 10/21/2018. Findings: The lower chest and upper abdomen are included in the oyvbe-da-nycz. There is generalized cardiomegaly. There are zones [...] on 10/24/2018 6:35 AM. Performing Organization Address [facility] Phone Number [facility] RESULTS * GRAM STAIN (10/23/2018 4:15 PM CDT) Battery Name GRAM STAIN MAIN LAB Specimen CSF MAIN LAB Description Special NONE MAIN LAB Requests Gram Stain RARE [facility] NEUTROPHILS NO ORGANISMS SEEN Report Status FINAL [facility] 10/23/2018 Specimen Cerebrospinal Fluid Performing Organization Address [facility] Phone Number [facility] [address] [place] [address] * HERPES SIMPLEX PCR - NON-BLOOD (10/23/2018 4:15 PM CDT) Specimen, CSF MAIN LAB Herpes Herpes Simplex HSV 1 and 2 NOT DETECTED HSVND-HSV 1 and 2 [facility] LAB PCR Comment: NOT DETECTED [facility] HSV 1&2 Assay is a qualitative real-time PCR test for the direct detection and differentiation of HSV 1 and 2 DNA. This assay is FDA approved for testing cutaneous or mucocutaneous lesions from symptomatic patients. Performance on modifications of this test as well as other specimen types has been validated by the Department of Pathology and Laboratory Medicine at the [facility]. Specimen Cerebrospinal Fluid Performing Organization Address [facility] Phone Number MAIN LAB [address] [place] [address] * CULTURE-CSF W/SENSITIVITY (10/23/2018 4:15 PM CDT) Battery Name CSF CULTURE [facility] MAIN LAB Specimen CSF [facility] MAIN LAB Description Special NONE [facility] MAIN LAB Requests Direct Gram RARE [facility] MAIN LAB Stain NEUTROPHILS NO ORGANISMS SEEN Culture NO GROWTH 3 DAYS MAIN LAB Report Status FINAL [facility] MAIN LAB 10/26/2018 Specimen Cerebrospinal fluid - Cerebrospinal Fluid Performing Organization Address [facility] Phone Number [facility] MAIN [facility] [address] [place] [address] * GLUCOSE-CSF (10/23/2018 4:15 PM CDT) Glucose,CSF 70 40 - 75 MG/DL MAIN LAB Xanthrochromia, NONE MAIN LAB CSF BLOOD PRESENT Specimen Cerebrospinal fluid - Cerebrospinal Fluid Performing Organization Address [facility] Phone Number MAIN LAB [address] [place] [address] * TOTAL PROTEIN-CSF (10/23/2018 4:15 PM CDT) Total 70 (H) 15 - 45 MG/DL MAIN LAB Protein,CSF Specimen Cerebrospinal fluid - Cerebrospinal Fluid Performing Organization Address [facility] Phone Number MAIN LAB [address] [place] [address] * CELL COUNT W/DIFF-CSF (10/23/2018 4:15 PM CDT) Cell Count TUBE 4 MAIN LAB Tube,CSF White Blood 23 (H) <5 /UL MAIN LAB Cells,CSF Red Blood 1 /UL [facility] MAIN LAB Cells,CSF Neutrophils, 3 % [facility] MAIN LAB CSF Lymphocytes, 86 % [facility] MAIN LAB CSF Monocyte/Hisoto 9 % MAIN LAB cyte, CSF Other, CSF 2 % [facility] MAIN LAB Clarity,CSF CLEAR MAIN LAB Path CHRONIC INFLAMMATION [facility] MAIN LAB Interpretation, CSF Pathologist INTERPRETED BY JOVITA ARAUJO M.D. MAIN LAB Signature By the PATH SIGNATURE ABOVE, I attest that I have personally formulated the final interpretation expressed in this report and that the above diagnosis is based upon my examination of the slides and/or other material indicated in this report. Specimen Cerebrospinal fluid - Cerebrospinal Fluid Performing Organization Address [facility] Phone Number MAIN LAB [address] [place] [address] * TRANSESOPHAGEAL ECHOCARDIOGRAM (10/23/2018 3:51 PM CDT) Mr max bozena 6.5 m/s OTHER OUTSIDE LAB BSA 1.57 m2 OTHER OUTSIDE LAB CV ECHO PV MARI Doan; Floor RN OTHER OUTSIDE IMAGING CENTER MANAGER LAB Cardiology Siemens [id number] OTHER OUTSIDE Ultrasound LAB Machine ECHO EF 45 % OTHER OUTSIDE LAB Radius 0.5 cm OTHER OUTSIDE LAB AV peak 1.6 m/s OTHER OUTSIDE velocity LAB Vn Nyquist 0.31 m/s OTHER OUTSIDE LAB MR ELVIA LOPEZOA 0.07 cm2 OTHER OUTSIDE LAB Narrative Performed [...] This study was read in conjunction with toucher up, Dr. Don Dominguez.I have personally reviewed the study and co-formulated the interpretation expressed in this report. Performing Organization Address City/State/Zipcode Phone Number OTHER OUTSIDE LAB * POTASSIUM (10/23/2018 1:17 PM CDT) Potassium 4.0 3.5 - 5.1 MMOL/L [facility] MAIN LAB Specimen Blood Performing Organization Address City/State/Zipcode Phone Number MAIN LAB [address] [place] [address] * BLOOD GASES, ARTERIAL (10/23/2018 3:25 AM CDT) pH-Arterial 7.48 (H) 7.35 - 7.45 K[facility] MAIN LAB pCO2-Arterial 51 (H) 35 - 45 MMHG K[facility] MAIN LAB pO2-Arterial 117 (H) 80 - 100 MMHG [facility] MAIN LAB Base 12.6 MMOL/L [facility] MAIN LAB Excess-Arterial O2 Sat-Arterial 98.7 95 - 99 % [facility] MAIN LAB Bicarbonate-ART 36.4 (H) 21 - 28 MMOL/L [facility] MAIN LAB -Earl Specimen Blood, arterial - Blood Performing Organization Address [facility] Phone Number MAIN LAB [address] [place] [address] * IONIZED CALCIUM (10/23/2018 3:25 AM CDT) Pathologist [facility] Ionized Calcium 1.18 1.0 - 1.3 MMOL/L MAIN LAB Specimen Blood Performing Organization Address [facility] Phone Number MAIN LAB [address] [place] [address] * PHOSPHORUS (10/23/2018 3:25 AM CDT) Pathologist [facility] Phosphorus 1.6 (L)Comment: NOTE NEW 2.0 - 4.5 MG/DL MAIN LAB REFERENCE RANGES Specimen Blood Performing Organization Address [facility] Phone Number MAIN LAB [address] [place] [address] * MAGNESIUM (10/23/2018 3:25 AM CDT) Pathologist [facility] Magnesium 2.0 1.6 - 2.6 mg/dL MAIN LAB Specimen Blood Performing Organization Address [facility] Phone Number MAIN LAB [address] [place] [address] * CBC AND DIFF (10/23/2018 3:25 AM CDT) White Blood 16.9 (H) 4.5 - 11.0 K/UL MAIN LAB Cells RBC 2.63 (L) 4.0 - 5.0 M/UL [facility] MAIN LAB Hemoglobin 8.2 (L) 12.0 - 15.0 GM/DL MAIN LAB Hematocrit 25.2 (L) 36 - 45 % MAIN LAB MCV 95.9 80 - 100 FL MAIN LAB MCH 31.1 26 - 34 PG MAIN LAB MCHC 32.4 32.0 - 36.0 G/DL [facility] MAIN LAB RDW 14.8 11 - 15 % [facility] MAIN LAB Platelet Count 312 150 - 400 K/UL [facility] MAIN LAB MPV 8.8 7 - 11 FL [facility] MAIN LAB Neutrophils 81 (H) 41 - 77 % [facility] MAIN LAB Lymphocytes 13 (L) 24 - 44 % [facility] MAIN LAB Monocytes 4 4 - 12 % [facility] MAIN LAB Eosinophils 2 0 - 5 % [facility] MAIN LAB Basophils 0 0 - 2 % [facility] MAIN LAB Absolute 13.50 (H) 1.8 - 7.0 K/UL [facility] MAIN LAB Neutrophil Count Absolute Lymph 2.20 1.0 - 4.8 K/UL [facility] MAIN LAB Count Absolute 0.70 0 - 0.80 K/UL [facility] MAIN LAB Monocyte Count Absolute 0.40 0 - 0.45 K/UL [facility] MAIN LAB Eosinophil Count Absolute 0.10 0 - 0.20 K/UL [facility] MAIN LAB Basophil Count Specimen Blood Performing Organization Address City/[facility] Phone Number [facility] [address] [place] [address] * BASIC METABOLIC PANEL (10/23/2018 3:25 AM CDT) Sodium 145 137 - 147 MMOL/L [facility] MAIN LAB Potassium 3.4 (L) 3.5 - 5.1 MMOL/L [facility] MAIN LAB Chloride 106 98 - 110 MMOL/L [facility] MAIN LAB CO2 36 (H) 21 - 30 MMOL/L [facility] MAIN LAB Anion Gap 3 3 - 12 [facility] MAIN LAB Glucose 121 (H) 70 - 100 MG/DL [facility] MAIN LAB Blood Urea 10 7 - 25 MG/DL [facility] MAIN LAB Nitrogen Creatinine 0.33 (L) 0.4 - 1.00 MG/DL [facility] MAIN LAB Calcium 8.1 (L) 8.5 - 10.6 MG/DL [facility] MAIN LAB eGFR Non >60 >60 mL/min [facility] MAIN LAB Comment: Danish The eGFR is not validated for use in drug dosing adjustments.Continue to use estimated creatinine clearance per dosing reference text.Please contact the Clinical Pharmacist for questions. eGFR >60 >60 mL/min [facility] Danish Comment: The eGFR is not validated for use in drug dosing adjustments.Continue to use estimated creatinine clearance per dosing reference text.Please contact the Clinical Pharmacist for questions. Specimen Blood Performing Organization Address City/[facility]/Zipcode Phone Number [facility] [address] [place] [address] * CULTURE-BLOOD W/SENSITIVITY (10/22/2018 12:36 PM CDT) Battery Name BLOOD CULTURE MAIN LAB Specimen BLOOD MAIN LAB Description RIGHT ANTECUBITAL Special aerobic bottle only [facility] Requests Culture performed on specimen with less than the recommended volume of 10 ml/bottle. Decreased volume will affect sensitivity of culture. Culture NO GROWTH 5 DAYS MAIN LAB Report Status FINAL MAIN LAB 10/28/2018 Specimen Blood Performing Organization Address City/[facility] Phone Number [facility] LAB [address] [place] [address] * CULTURE-BLOOD W/SENSITIVITY (10/22/2018 11:43 AM CDT) Battery Name BLOOD CULTURE MAIN LAB Specimen BLOOD MAIN LAB Description RIGHT ANTECUBITAL Special NONE MAIN LAB Requests Culture NO GROWTH 5 DAYS MAIN LAB Report Status FINAL MAIN LAB 10/28/2018 Specimen Blood Performing Organization Address City/[facility] Phone Number [facility] [address] [place] [address] * BLOOD GASES, ARTERIAL (10/22/2018 3:15 AM CDT) pH-Arterial 7.45 7.35 - 7.45 MAIN LAB pCO2-Arterial 50 (H) 35 - 45 [facility] MAIN LAB pO2-Arterial 88 80 - 100 [facility] MAIN LAB Base 9.0 MMOL/L MAIN LAB Excess-Arterial O2 Sat-Arterial 96.7 95 - 99 % MAIN LAB Bicarbonate-ART 32.8 (H) 21 - 28 MMOL/L MAIN LAB -[place] Specimen Blood, arterial - Blood Performing Organization Address City/[facility] Phone Number [facility] LAB [address] [place] [address] * IONIZED CALCIUM (10/22/2018 3:15 AM CDT) Ionized Calcium 1.23 1.0 - 1.3 MMOL/L MAIN LAB Specimen Blood Performing Organization Address City/[facility] Phone Number [facility] [address] [place] [address] * PHOSPHORUS (10/22/2018 3:15 AM CDT) Phosphorus 1.9 (L)Comment: NOTE NEW 2.0 - 4.5 MG/DL [facility] REFERENCE RANGES Specimen Blood Performing Organization Address [facility] Phone Number [facility] [address] [place] [address] * MAGNESIUM (10/22/2018 3:15 AM CDT) Magnesium 2.1 1.6 - 2.6 mg/dL [facility] Specimen Blood Performing Organization Address [facility] Phone Number [facility] [address] [place] [address] * CBC AND DIFF (10/22/2018 3:15 AM CDT) White Blood 16.3 (H) 4.5 - 11.0 K/UL [facility] Cells RBC 2.94 (L) 4.0 - 5.0 M/UL [facility] Hemoglobin 9.3 (L) 12.0 - 15.0 GM/DL [facility] Hematocrit 28.2 (L) 36 - 45 % [facility] MCV 95.8 80 - 100 FL [facility] MCH 31.5 26 - 34 PG [facility] MCHC 32.9 32.0 - 36.0 G/DL [facility] RDW 14.7 11 - 15 % [facility] Platelet Count 324 150 - 400 K/UL [facility] MPV 9.0 7 - 11 FL [facility] Neutrophils 77 41 - 77 % [facility] Lymphocytes 15 (L) 24 - 44 % [facility] Monocytes 6 4 - 12 % [facility] Eosinophils 1 0 - 5 % [facility] Basophils 1 0 - 2 % [facility] Absolute 12.70 (H) 1.8 - 7.0 K/UL [facility] Neutrophil Count Absolute Lymph 2.40 1.0 - 4.8 K/UL [facility] Count Absolute 0.90 (H) 0 - 0.80 K/UL [facility] Monocyte Count Absolute 0.10 0 - 0.45 K/UL [facility] Eosinophil Count Absolute 0.20 0 - 0.20 K/UL [facility] Basophil Count Specimen Blood Performing Organization Address [facility] Phone Number [facility] [address] [place] [address] * BASIC METABOLIC PANEL (10/22/2018 3:15 AM CDT) Pathologist [facility] Sodium 150 (H) 137 - 147 MMOL/L [facility] Potassium 3.6 3.5 - 5.1 MMOL/L [facility] Chloride 113 (H) 98 - 110 MMOL/L [facility] CO2 33 (H) 21 - 30 MMOL/L [facility] Anion Gap 4 3 - 12 MAIN LAB Glucose 175 (H) 70 - 100 MG/DL [facility] Blood Urea 12 7 - 25 MG/DL [facility] Nitrogen Creatinine 0.47 0.4 - 1.00 MG/DL [facility] Calcium 8.5 8.5 - 10.6 MG/DL [facility] eGFR Non >60 >60 mL/min [facility] Comment: Danish The eGFR is not validated for use in drug dosing adjustments.Continue to use estimated creatinine clearance per dosing reference text.Please contact the Clinical Pharmacist for questions. eGFR >60 >60 mL/min [facility] Danish Comment: The eGFR is not validated for use in drug dosing adjustments.Continue to use estimated creatinine clearance per dosing reference text.Please contact the Clinical Pharmacist for questions. Specimen Blood Performing Organization Address City/[facility]/Zipcode Phone Number [facility] [address] [place] [address] * VANCOMYCIN TROUGH (10/21/2018 9:41 PM CDT) Vancomycin 9.8 (L) 10.0 - 20.0 MCG/ML [facility] Trough Specimen Blood, venous - Blood Performing Organization Address [facility] Phone Number [facility] [address] [place] [address] * SODIUM (10/21/2018 1:35 PM CDT) Sodium 149 (H) 137 - 147 MMOL/L [facility] Specimen Blood Performing Organization Address [facility] Phone [facility] [address] [place] [phone] * ABDOMEN AP ONLY (10/21/2018 10:38 AM CDT) Impressions Performed At Tip of the Corpak overlies the left upper quadrant region in the expected [facility] RES[facility] location of proximal portion of the stomach. Nonobstructive bowel gas pattern. Bibasilar airspace disease. Tip of central venous catheter in the lower SVC, incompletely imaged and evaluated on this exam. Finalized by NOHEMI SUN on 10/21/2018 11:21 AM. Dictated by NOHEMI SUN on 10/21/2018 11:19 AM. Narrative Performed At ABDOMEN AP ONLY [facility] RES[facility] Indication: Corpak pulled out 25 cm Comparison: Abdomen radiograph from yesterday at 2015 hours Technique: 3 views Procedure Note Interface, Radiant Results - 10/21/2018 11:24 AM CDT ABDOMEN AP ONLY Indication: Corpak pulled out 25 cm Comparison: Abdomen radiograph from yesterday at 2015 hours Technique: 3 views IMPRESSION Tip of the Corpak overlies the left upper quadrant region in the expected location of proximal portion of the stomach. Nonobstructive bowel gas pattern. Bibasilar airspace disease. Tip of central venous catheter in the lower SVC, incompletely imaged and evaluated on this exam. Finalized by NOHEMI SUN on 10/21/2018 11:21 AM. Dictated by NOHEMI SUN on 10/21/2018 11:19 AM. Performing Organization Address City/[facility] Phone Number RAD RESULTS * IONIZED CALCIUM (10/21/2018 3:10 AM CDT) Ionized Calcium 1.20 1.0 - 1.3 MMOL/L [facility] Specimen Blood Performing Organization Address [facility] Phone Number [facility] [address] [place] [address] * PHOSPHORUS (10/21/2018 3:10 AM CDT) Phosphorus 2.5Comment: NOTE NEW REFERENCE 2.0 - 4.5 MG/DL [facility] RANGES Specimen Blood Performing Organization Address [facility] Phone Number [facility] [address] [place] [address] * MAGNESIUM (10/21/2018 3:10 AM CDT) Magnesium 2.1 1.6 - 2.6 mg/dL [facility] Specimen Blood Performing Organization Address [facility] Phone Number [facility] [address] [place] [address] * CBC AND DIFF (10/21/2018 3:10 AM CDT) White Blood 18.6 (H) 4.5 - 11.0 K/UL [facility] Cells RBC 2.94 (L) 4.0 - 5.0 M/UL [facility] Hemoglobin 9.4 (L) 12.0 - 15.0 GM/DL [facility] Hematocrit 27.9 (L) 36 - 45 % [facility] MCV 95.0 80 - 100 FL [facility] MCH 32.0 26 - 34 PG [facility] MCHC 33.7 32.0 - 36.0 G/DL [facility] RDW 14.7 11 - 15 % [facility] Platelet Count 331 150 - 400 K/UL [facility] MPV 9.0 7 - 11 FL [facility] Neutrophils 87 (H) 41 - 77 % [facility] Lymphocytes 10 (L) 24 - 44 % [facility] Monocytes 3 (L) 4 - 12 % [facility] Eosinophils 0 0 - 5 % [facility] Basophils 0 0 - 2 % [facility] Absolute 16.00 (H) 1.8 - 7.0 K/UL [facility] Neutrophil Count Absolute Lymph 1.90 1.0 - 4.8 K/UL [facility] Count Absolute 0.60 0 - 0.80 K/UL [facility] Monocyte Count Absolute 0.00 0 - 0.45 K/UL [facility] Eosinophil Count Absolute 0.10 0 - 0.20 K/UL [facility] Basophil Count Specimen Blood Performing Organization Address City/State/Zipcode Phone Number [facility] [address] [place] [address] * BASIC METABOLIC PANEL (10/21/2018 3:10 AM CDT) [facility] Signature Sodium 150 (H) 137 - 147 MMOL/L [facility] Potassium 3.4 (L) 3.5 - 5.1 MMOL/L [facility] Chloride 113 (H) 98 - 110 MMOL/L [facility] CO2 30 21 - 30 MMOL/L [facility] Anion Gap 7 3 - 12 [facility] Glucose 118 (H) 70 - 100 MG/DL [facility] Blood Urea 9 7 - 25 MG/DL [facility] Nitrogen Creatinine 0.48 0.4 - 1.00 MG/DL [facility] Calcium 8.8 8.5 - 10.6 MG/DL [facility] eGFR Non >60 >60 mL/min [facility] Comment: Danish The eGFR is not validated for use in drug dosing adjustments.Continue to use estimated creatinine clearance per dosing reference text.Please contact the Clinical Pharmacist for questions. eGFR >60 >60 mL/min [facility] Danish Comment: The eGFR is not validated for use in drug dosing adjustments.Continue to use estimated creatinine clearance per dosing reference text.Please contact the Clinical Pharmacist for questions. 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 Adenovirus NOT DETECTED [facility] Coronavirus NOT DETECTED [facility] 229E Coronavirus NOT DETECTED [facility] HKU1 Coronavirus NOT DETECTED [facility] NL63 Coronavirus NOT DETECTED [facility] OC43 Human NOT DETECTED [facility] Metapneumovirus Human NOT DETECTED [facility] MAIN [...] Pneumoniae Specimen Nasopharyngeal Swab Performing Organization Address City/[facility]/Zipcode Phone Number [facility] [address] [place] [phone] * ABDOMEN AP ONLY (10/20/2018 8:25 PM AUTOMATIC NAILING MACHINE FEEDER) Impressions Performed At Impression: Tip of the corpak is now seen overlying the expected region of [facility] RESULTS distal stomach. Nonobstructive bowel gas pattern. Finalized by NOHEMI SUN on 10/21/2018 10:09 AM. Dictated by NOHEMI SUN on 10/21/2018 10:08 AM. Narrative Performed At ABDOMEN AP ONLY [facility] RESULTS Indication: corpak placement Comparison: Abdomen radiograph from the same date at 2014 hours Technique: 2 images Procedure Note Interface, Radiant Results - 10/21/2018 10:12 AM CDT ABDOMEN AP ONLY Indication: corpak placement Comparison: Abdomen radiograph from the same date at 2014 hours Technique: 2 images IMPRESSION Impression: Tip of the corpak is now seen overlying the expected region of distal stomach. Nonobstructive bowel gas pattern. Finalized by NOHEMI SUN on 10/21/2018 10:09 AM. Dictated by NOHEMI SUN on 10/21/2018 10:08 AM. Performing Organization Address [facility] Phone Number [facility] * ABDOMEN AP ONLY (10/20/2018 8:18 PM AUTOMATIC NAILING MACHINE FEEDER) Impressions Performed At Tip of the Corpak is seen overlying the left upper quadrant region in the [facility] RESULTS expected location of body of the stomach. Otherwise nonspecific bowel gas pattern. Finalized by NOHEMI SUN on 10/21/2018 11:52 AM. Dictated by NOHEMI SUN on 10/21/2018 11:52 AM. Narrative Performed At ABDOMEN AP ONLY [facility] RES[facility] Indication: PostFeeding Tube Placement Comparison: Abdomen radiograph from 10/16/2018 Technique: 2 views Procedure Note Interface, Radiant Results - 10/21/2018 11:55 AM CDT ABDOMEN AP ONLY Indication: Post Feeding Tube Placement Comparison: Abdomen radiograph from 10/16/2018 Technique: 2 views IMPRESSION Tip of the Corpak is seen overlying the left upper quadrant region in the expected location of body of the stomach. Otherwise nonspecific bowel gas pattern. Finalized by NOHEMI SUN on 10/21/2018 11:52 AM. Dictated by NOHEMI SUN on 10/21/2018 11:52 AM. Performing Organization Address [facility] Phone Number [facility] * LIVER FUNCTION PANEL (10/20/2018 3:57 PM AUTOMATIC NAILING MACHINE FEEDER) Total Bilirubin 0.3 0.3 - 1.2 MG/DL [facility] Bilirubin, <0.1 <0.4 MG/DL [facility] Direct Albumin 2.6 (L) 3.5 - 5.0 G/DL [facility] Alk Phosphatase 33 25 - 110 U/L [facility] AST (SGOT) 26 7 - 40 U/L [facility] ALT (SGPT) 9 7 - 56 U/L [facility] Total Protein 5.7 (L) 6.0 - 8.0 G/DL [facility] Specimen Blood Performing Organization Address [facility] Phone Number [facility] [address] [place] [address] * AMMONIA (10/20/2018 3:57 PM AUTOMATIC NAILING MACHINE FEEDER) Ammonia 76 (H) 9 - 35 MCMOL/L MAIN LAB Specimen Blood Performing Organization Address City/[facility]/Zipcode Phone Number [facility] [address] [place] [address] * MRI HEAD WO/W CONTRAST (10/20/2018 3:41 PM AUTOMATIC NAILING MACHINE FEEDER) Addenda Addendum by Mayank Price MD on 10/20/2018 4:46 PM Finalized by Mayank Price M.D. on 10/20/2018 4:09 PM. Dictated by Abiel Don M.D. on 10/20/2018 2:33 PM.Addendum: Dr. Don discussed these findings with Raquel Owusu APRN, by telephone 10/20/2018 4:39 PM. Approved by Abiel Don M.D. on 10/20/2018 4:40 PM By my electronic signature, I attest that I have personally reviewed the images for this examination and formulated the interpretations and opinions expressed in this report Finalized by Mayank Price M.D. on 10/20/2018 4:43 PM. Dictated by Abiel Don M.D. on 10/20/2018 4:39 PM. Impressions Performed At 1.Ovoid focus of diffusion restriction and partial rim enhancement in the [facility] RESULTS basal right temporal lobe overlying the tegmen suggestive of focal cerebritis and developing abscess. 2.Dependent diffusion restricting material within the lateral ventricles suspicious for ventriculitis. 3.Thin complex left posterolateral convexity subdural fluid collection with diffusion restriction suggestive of thin subdural empyema. 4.Redemonstration of bilateral mastoid and middle ear effusions with associated enhancement compatible with otomastoiditis. Diffuse acute- appearing paranasal sinusitis. Areas of tegmen thinning and dehiscence are better demonstrated on comparison CTs. 5.Redemonstration of extensive arachnoid pits with interval visualization of a small right sphenoid wing encephalocele. Given partially empty sella appearance, findings may represent chronic intracranial hypertension. 6.Diffuse symmetric prominence, ill-defined edema, and enhancement of the salivary glands suggestive of sialoadenitis. By my electronic signature, I attest that I have personally reviewed the images for this examination and formulated the interpretations and opinions expressed in this report Narrative Performed At EXAM: MRI BRAIN (SKULL BASE PROTOCOL) [facility] RESULTS HISTORY: 58-year-old female, altered mental status. TECHNIQUE: Multiplanar and multisequence MR imaging of the head was performed. This was done both before and after the administration of MultiHancecontrast. COMPARISON: Same-day CT head and IACs. FINDINGS: Multiple sequences are degraded by repetitive motion artifact. The known areas of tegmen thinning and dehiscence are demonstrated on previous CT exams. There is an ovoid focus of restricted diffusion within the right temporal lobe measuring up to 1.3 cm with associated FLAIR hyperintensity (series 6, image 31 and series 18, image 8) and partial rim enhancement. Mild surrounding FLAIR hyperintensity is noted. Small foci of increased DWI and ADC signal (T2 shine through) are seen within the right centrum semiovale (series 6, images 40 and 41) compatible with subacute to chronic lacunar infarct. No evidence of acute ischemic infarct. Additional minimal foci of FLAIR hyperintensity in the cerebral white matter, likely age-appropriate. The ventricles are normal in size. There is abnormal FLAIR hyperintensity dependently layering bilaterally within the occipital horns of the lateral ventricles with associated restricted diffusion. Redemonstration of diffuse arachnoid pits with visualization of a small right anterior middle cranial fossa/sphenoid wing encephalocele (series 12 image 34, series 14 image 21). Nearly empty sella appearance is again noted. There is a thin left posterior cerebral convexity FLAIR hyperintense fluid collection which demonstrates restricted diffusion (series 6, image 33). There is associated thin dural enhancement along the left temporal and lateral cerebral convexity. The central intracranial arterial flow voids are preserved. Dedicated skull base thin section T2 sequence is essentially nondiagnostic due to motion. Bilateral mastoid and middle ear effusions with associated enhancement. Diffuse paranasal sinus mucosal thickening and secretions with moderate air-fluid levels in the maxillary sinuses which demonstrate diffusion restriction. Dependent fluid noted within the nasopharynx and oropharynx with partially visualized endotracheal tube. Diffuse symmetric prominence and ill-defined edema within the parotid, submandibular, and sublingual glands with associated enhancement. The globes and orbits are grossly unremarkable, although, partially obscured due to motion on axial imaging. Procedure Note Interface, Radiant Results - 10/20/2018 4:46 PM AUTOMATIC NAILING MACHINE FEEDER EXAM: MRI BRAIN (SKULL BASE PROTOCOL) HISTORY: 58-year-old female, altered mental status. TECHNIQUE: Multiplanar and multisequence MR imaging of the head was performed. This was done both before and after the administration of MultiHancecontrast. COMPARISON: Same-day CT head and IACs. FINDINGS: Multiple sequences are degraded by repetitive motion artifact. The known areas of tegmen thinning and dehiscence are demonstrated on previous CT exams. There is an ovoid focus of restricted diffusion within the right temporal lobe measuring up to 1.3 cm with associated FLAIR hyperintensity ( series 6, image 31 and series 18, image 8) and partial rim enhancement. Mild surrounding FLAIR hyperintensity is noted. Small foci of increased DWI and ADC signal (T2 shine through) are seen within the right centrum semiovale (series 6 , images 40 and 41) compatible with subacute to chronic lacunar infarct. No evidence of acute ischemic infarct. Additional minimal foci of FLAIR hyperintensity in the cerebral white matter, likely age-appropriate. The ventricles are normal in size. There is abnormal FLAIR hyperintensity dependently layering bilaterally within the occipital horns of the lateral ventricles with associated restricted diffusion. Redemonstration of diffuse arachnoid pits with visualization of a small right anterior middle cranial fossa /sphenoid wing encephalocele (series 12 image 34, series 14 image 21). Nearly empty sella appearance is again noted. There is a thin left posterior cerebral convexity FLAIR hyperintense fluid collection which demonstrates restricted diffusion (series 6, image 33). There is associated thin dural enhancement along the left temporal and lateral cerebral convexity. The central intracranial arterial flow voids are preserved. Dedicated skull base thin section T2 sequence is essentially nondiagnostic due to motion. Bilateral mastoid and middle ear effusions with associated enhancement. Diffuse paranasal sinus mucosal thickening and secretions with moderate air-fluid levels in the maxillary sinuses which demonstrate diffusion restriction. Dependent fluid noted within the nasopharynx and oropharynx with partially visualized endotracheal tube. Diffuse symmetric prominence and ill-defined edema within the parotid, submandibular, and sublingual glands with associated enhancement. The globes and orbits are grossly unremarkable, although, partially obscured due to motion on axial imaging. IMPRESSION 1. Ovoid focus of diffusion restriction and partial rim enhancement in the basal right temporal lobe overlying the tegmen suggestive of focal cerebritis and developing abscess. 2. Dependent diffusion restricting material within the lateral ventricles suspicious for ventriculitis. 3. Thin complex left posterolateral convexity subdural fluid collection with diffusion restriction suggestive of thin subdural empyema. 4. Redemonstration of bilateral mastoid and middle ear effusions with associated enhancement compatible with otomastoiditis. Diffuse acute-appearing paranasal sinusitis. Areas of tegmen thinning and dehiscence are better demonstrated on comparison CTs. 5. Redemonstration of extensive arachnoid pits with interval visualization of a small right sphenoid wing encephalocele. Given partially empty sella appearance, findings may represent chronic intracranial hypertension. 6. Diffuse symmetric prominence, ill-defined edema, and enhancement of the salivary glands suggestive of sialoadenitis. By my electronic signature, I attest that I have personally reviewed the images for this examination and formulated the interpretations and opinions expressed in this report Performing Organization Address City/State/Zipcode Phone Number [facility] RESULTS * CT LOWER EXTREM W CONT BILAT (10/20/2018 1:56 PM AUTOMATIC NAILING MACHINE FEEDER) Impressions Performed At 1. Mild soft tissue [...] AUD CANAL WO CONTRAST (10/20/2018 1:50 PM AUTOMATIC NAILING MACHINE FEEDER) Impressions Performed At 1.Extensive thinning and numerous [...] on 10/21/2018 7:21 AM. Performing Organization Address [facility] Phone Number [facility] RESULTS * POTASSIUM (10/20/2018 11:17 AM AUTOMATIC NAILING MACHINE FEEDER) Potassium 4.0 3.5 - 5.1 MMOL/L MAIN LAB Specimen Blood Performing Organization Address [facility] [place] Phone Number [facility] [address] [place] [phone] * ACETAMINOPHEN LEVEL (10/20/2018 11:17 AM AUTOMATIC NAILING MACHINE FEEDER) Acetaminophen <10.0 <20.1 MCG/ML [facility] LAB Specimen Blood Performing Organization Address [facility] [place] Phone Number [facility] [address] [place] [phone] * 2-D + DOPPLER ECHOCARDIOGRAM (10/20/2018 10:08 AM AUTOMATIC NAILING MACHINE FEEDER) IVS 0.76 0.6 - 0.9 cm OTHER [...] 0.44 cm OTHER OUTSIDE LAB Mr max bozena 5.74 m/s OTHER OUTSIDE LAB MV Peak A Bozena 1.23 m/s OTHER OUTSIDE LAB Right 2.75 [...] OTHER OUTSIDE Systolic TDI S' LAB MR PISA EROA 0.07 cm2 OTHER OUTSIDE LAB Left Atrium 33.29 16 - 34 OTHER OUTSIDE Index LAB Cardiology Siemens [id number] OTHER OUTSIDE Ultrasound LAB Machine Left Ventricle 62.44 44 - 88 g/m2 OTHER OUTSIDE Mass Index LAB ECHO EF 40 % OTHER OUTSIDE LAB Narrative Performed At OTHER OUTSIDE LAB LVEF=35-40% With Mid To Distal Anteroapical Severe Hypokinesis To Akinesis. Zvomgstusow=049-130 bpm Normal LV Wall Thickness Normal Chamber Dimensions Anterior Mitral Valve Borderline Prolapse No Vegetations Moderate Eccentric Posterior Lateral Jet Mitral Valve Regurgitation No Pericardial Effusion PASP=33mmHg Performing Organization Address City/State/Zipcode Phone Number OTHER OUTSIDE LAB * BLOOD GASES, ARTERIAL (10/20/2018 3:49 AM AUTOMATIC NAILING MACHINE FEEDER) pH-Arterial 7.41 7.35 - 7.45 [facility] pCO2-Arterial 47 (H) 35 - 45 MMHG [facility] pO2-Arterial 99 80 - 100 MMHG [facility] Base 3.9 MMOL/L [facility] Excess-Arterial O2 Sat-Arterial 97.7 95 - 99 % [facility] Bicarbonate-ART 27.9 21 - 28 MMOL/L [facility] -[place] Specimen Blood, arterial - Blood Performing Organization Address City/State/Zipcode Phone Number [facility] [address] [place] [address] * IONIZED CALCIUM (10/20/2018 3:38 AM AUTOMATIC NAILING MACHINE FEEDER) Ionized Calcium 1.22 1.0 - 1.3 MMOL/L [facility] Specimen Blood Performing Organization Address City/[facility]/Zipcode Phone Number [facility] [address] [place] [address] * PHOSPHORUS (10/20/2018 3:38 AM AUTOMATIC NAILING MACHINE FEEDER) Phosphorus 3.0Comment: NOTE NEW REFERENCE 2.0 - 4.5 MG/DL [facility] RANGES Specimen Blood Performing Organization Address City/[facility] Phone Number [facility] [address] [place] [address] * MAGNESIUM (10/20/2018 3:38 AM AUTOMATIC NAILING MACHINE FEEDER) Pathologist [facility] Magnesium 2.6 1.6 - 2.6 mg/dL [facility] Specimen Blood Performing Organization Address [facility] Phone Number [facility] [address] [place] [address] * CBC AND DIFF (10/20/2018 3:38 AM AUTOMATIC NAILING MACHINE FEEDER) White Blood 14.2 (H) 4.5 - 11.0 K/UL [facility] Cells RBC 3.00 (L) 4.0 - 5.0 M/UL [facility] Hemoglobin 9.4 (L) 12.0 - 15.0 GM/DL [facility] Hematocrit 28.4 (L) 36 - 45 % [facility] MCV 94.5 80 - 100 FL [facility] MCH 31.4 26 - 34 PG [facility] MCHC 33.3 32.0 - 36.0 G/DL [facility] RDW 14.7 11 - 15 % [facility] Platelet Count 291 150 - 400 K/UL [facility] MPV 8.5 7 - 11 FL [facility] Neutrophils 89 (H) 41 - 77 % [facility] Lymphocytes 8 (L) 24 - 44 % [facility] Monocytes 3 (L) 4 - 12 % [facility] Eosinophils 0 0 - 5 % [facility] Basophils 0 0 - 2 % [facility] Absolute 12.70 (H) 1.8 - 7.0 K/UL [facility] Neutrophil Count Absolute Lymph 1.10 1.0 - 4.8 K/UL [facility] Count Absolute 0.40 0 - 0.80 K/UL [facility] Monocyte Count Absolute 0.00 0 - 0.45 K/UL MAIN LAB Eosinophil Count Absolute 0.00 0 - 0.20 K/UL MAIN LAB Basophil Count Specimen Blood Performing Organization Address City/[facility]/Zipcode Phone Number MAIN LAB [address] [place] [address] * BASIC METABOLIC PANEL (10/20/2018 3:38 AM AUTOMATIC NAILING MACHINE FEEDER) Sodium 146 137 - 147 MMOL/L MAIN LAB Potassium 3.9 3.5 - 5.1 MMOL/L MAIN LAB Chloride 112 (H) 98 - 110 MMOL/L [facility] CO2 28 21 - 30 MMOL/L [facility] Anion Gap 6 3 - 12 [facility] Glucose 142 (H) 70 - 100 MG/DL MAIN LAB Blood Urea 13 7 - 25 MG/DL MAIN LAB Nitrogen Creatinine 0.50 0.4 - 1.00 MG/DL MAIN LAB Calcium 8.7 8.5 - 10.6 MG/DL MAIN LAB eGFR Non >60 >60 mL/min MAIN LAB Comment: Danish The eGFR is not validated for use in drug dosing adjustments.Continue to use estimated creatinine clearance per dosing reference text.Please contact the Clinical Pharmacist for questions. eGFR >60 >60 mL/min MAIN LAB Danish Comment: The eGFR is not validated for use in drug dosing adjustments.Continue to use estimated creatinine clearance per dosing reference text.Please contact the Clinical Pharmacist for questions. Specimen Blood Performing Organization Address [facility]/Zipcode Phone Number MAIN LAB [address] [place] [address] * GRAM STAIN (10/20/2018 1:28 AM AUTOMATIC NAILING MACHINE FEEDER) Battery Name GRAM STAIN MAIN LAB Specimen SWAB MAIN LAB Description WOUND LEFT LEG Special NONE MAIN LAB Requests Gram Stain NO NEUTROPHILS SEEN MAIN LAB NO ORGANISMS SEEN Report Status FINAL MAIN LAB 10/20/2018 Specimen Swab Performing Organization Address City/[facility]/Zipcode Phone Number MAIN LAB [address] [place] [address] * CULTURE-WOUND/TISSUE/FLUID(AEROBIC ONLY)W/SENSITIVITY (10/20/2018 1:28 AM AUTOMATIC NAILING MACHINE FEEDER ) Battery Name ROUTINE CULTURE MAIN LAB Specimen SWAB MAIN LAB Description WOUND LEFT LEG Special NONE MAIN LAB Requests Direct Gram NO NEUTROPHILS SEEN [facility] MAIN [facility] Stain NO ORGANISMS SEEN Culture Four Colonies MAIN LAB PSEUDOMONAS AERUGINOSA (A) Report Status FINAL MAIN LAB 10/25/2018 Organism ID Four Colonies MAIN LAB PSEUDOMONAS AERUGINOSA Organism ID Four Colonies [facility] MAIN LAB PSEUDOMONAS AERUGINOSA Specimen Swab Antibiotic [...] RESISTANT: Resistant Four colonies pseudomonas aeruginosa Piperacil/Tazobactam MARYC (MCG/ML) INTERPRETATION >64/4 RESISTANT: Resistant Four colonies [...] Four colonies pseudomonas aeruginosa Performing Organization Address City/[facility]/Zipcode Phone Number MAIN LAB [address] [place] [address] * GRAM STAIN (10/20/2018 1:07 AM AUTOMATIC NAILING MACHINE FEEDER) Battery Name GRAM STAIN MAIN LAB Specimen TRACHEAL ASPIRATE MAIN LAB Description Special NONE MAIN LAB Requests Gram Stain LESS THAN 10/LPF MAIN LAB NEUTROPHILS LESS THAN 10/LPF SQUAMOUS EPITHELIAL CELLS NO ORGANISMS SEEN Report Status FINAL MAIN LAB 10/20/2018 Specimen Tracheal Aspirate Performing Organization Address City/[facility]/Zipcode Phone Number MAIN LAB [address] [place] [address] * CULTURE-RESP,LOWER W/SENSITIVITY (10/20/2018 1:07 AM AUTOMATIC NAILING MACHINE FEEDER) Battery Name LOWER RESP CULTURE [facility] MAIN [facility] Specimen TRACHEAL ASPIRATE MAIN LAB Description Special NONE MAIN LAB Requests Direct Gram LESS THAN 10/LPF [facility] MAIN LAB Stain NEUTROPHILS LESS THAN 10/LPF SQUAMOUS EPITHELIAL CELLS NO ORGANISMS SEEN Culture Moderate growth MAIN LAB NO SIGNIFICANT CHELSEY Report Status FINAL [facility] 10/22/2018 Specimen Tracheal Aspirate Performing Organization Address City/[facility]/Zipcode Phone Number [facility] [address] [place] [address] * BLOOD GASES, ARTERIAL (10/20/2018 1:01 AM AUTOMATIC NAILING MACHINE FEEDER) pH-Arterial 7.32 (L) 7.35 - 7.45 [facility] pCO2-Arterial 58 (H) 35 - 45 MMHG [facility]IN [facility] pO2-Arterial 74 (L) 80 - 100 MMHG [facility] MAIN LAB Base 2.6 MMOL/L [facility] MAIN [facility] Excess-Arterial O2 Sat-Arterial 92.5 (L) 95 - 99 % [facility] Bicarbonate-ART 26.7 21 - 28 MMOL/L [facility] -[place] Specimen Blood, arterial - Blood Performing Organization Address [facility] Phone Number [facility] [address] [place] [address] * CT HEAD WO CONTRAST (10/20/2018 12:45 AM AUTOMATIC NAILING MACHINE FEEDER) Impressions Performed At 1.Right inferior temporal lobe [...] Interface, Radiant Results - 10/20/2018 8:00 AM AUTOMATIC NAILING MACHINE FEEDER CT HEAD WITHOUT CONTRAST HISTORY: 58 years [...] on 10/20/2018 7:49 AM. Performing Organization Address City/[facility] Phone Number [facility] RAD RESULTS * CULTURE-BLOOD W/SENSITIVITY (10/20/2018 12:12 AM AUTOMATIC NAILING MACHINE FEEDER) Battery Name BLOOD CULTURE [facility] MAIN LAB Specimen BLOOD [facility] MAIN [facility] Description RIGHT RADIAL Special NONE [facility] MAIN LAB Requests Culture NO GROWTH 5 DAYS [facility] MAIN LAB Report Status FINAL [facility] 10/26/2018 Specimen Blood Performing Organization Address [facility] Phone Number [facility] [address] [place] [address] * CULTURE-BLOOD W/SENSITIVITY (10/20/2018 12:11 AM AUTOMATIC NAILING MACHINE FEEDER) Battery Name BLOOD CULTURE [facility]IN [facility] Specimen BLOOD [facility] Description LEFT RADIAL Special NONE [facility] MAIN LAB Requests Culture NO GROWTH 5 DAYS [facility] MAIN [facility] Report Status FINAL MAIN LAB 10/26/2018 Specimen Blood Performing Organization Address [facility] Phone Number [facility] [address] [place] [address] * CHEST SINGLE VIEW (10/19/2018 11:45 PM AUTOMATIC NAILING MACHINE FEEDER) Impressions Performed At 1. Tubes and lines in place above. [facility] RAD RESULTS 2. Mild cardiomegaly with pulmonary venous congestion. 3. Increased lung volumes with persistent patchy mixed alveolar and interstitial opacities, which may represent pneumonia and/or edema. Approved by Abiel Don M.D. on 10/20/2018 9:35 AM By my electronic signature, I attest that I have personally reviewed the images for this examination and formulated the interpretations and opinions expressed in this report Finalized by NOHEMI SUN on 10/20/2018 10:08 AM. Dictated by Abiel Don M.D. on 10/20/2018 8:40 AM. Narrative Performed At CHEST SINGLE VIEW [facility] RESULTS Clinical Indication: Female, 58 years old. Tube placement. Comparison: Chest radiograph earlier the same day. Findings: Prior median sternotomy and CABG. Endotracheal tube remains in place with tip well above the level of the levon. The gastric tube and right IJ central venous catheter remain in similar position. The heart size is mildly enlarged with pulmonary venous congestion. Increased lung volumes with persistent patchy mixed alveolar and interstitial opacities. There is no pleural effusion or pneumothorax. Procedure Note Interface, Radiant Results - 10/20/2018 10:12 AM AUTOMATIC NAILING MACHINE FEEDER CHEST SINGLE VIEW Clinical Indication: Female, 58 years old. Tube placement. Comparison: Chest radiograph earlier the same day. Findings: Prior median sternotomy and CABG. Endotracheal tube remains in place with tip well above the level of the levon. The gastric tube and right IJ central venous catheter remain in similar position. The heart size is mildly enlarged with pulmonary venous congestion. Increased lung volumes with persistent patchy mixed alveolar and interstitial opacities. There is no pleural effusion or pneumothorax. IMPRESSION 1. Tubes and lines in place above. 2. Mild cardiomegaly with pulmonary venous congestion. 3. Increased lung volumes with persistent patchy mixed alveolar and interstitial opacities, which may represent pneumonia and/or edema. Approved by Abiel Don M.D. on 10/20/2018 9:35 AM By my electronic signature, I attest that I have personally reviewed the images for this examination and formulated the interpretations and opinions expressed in this report Finalized by NOHEMI SUN on 10/20/2018 10:08 AM. Dictated by Aibel Don M.D. on 10/20/2018 8:40 AM. Performing Organization Address City/[facility] Phone Number [facility] RESULTS * PHENCYCLIDINES-URINE RANDOM (10/19/2018 11:36 PM AUTOMATIC NAILING MACHINE FEEDER) Phencyclidine NEG NEG-NEG MAIN LAB (PCP) Comment: RESULTS WERE OBTAINED BY IMMUNOASSAY AND ARE PRESUMPTIVE ONLY. POSITIVE INDICATES THE PRESENCE OF SUBSTANCE WITH CHARACTERISTICS SIMILAR TO DRUG-DRUG CLASS OR METABOLITE IN CONC. EQUAL TO OR EXCEEDING VALUES LISTED. PHENCYCLIDINE (PCP)25 NG/ML Specimen Urine - Urine Performing Organization Address [facility] Phone Number MAIN LAB [address] [place] [address] * OPIATES-URINE RANDOM (10/19/2018 11:36 PM AUTOMATIC NAILING MACHINE FEEDER) Opiates-Urine NEG NEG-NEG [facility] Comment: RESULTS WERE OBTAINED BY IMMUNOASSAY AND ARE PRESUMPTIVE ONLY. POSITIVE INDICATES THE PRESENCE OF SUBSTANCE WITH CHARACTERISTICS SIMILAR TO DRUG-DRUG CLASS OR METABOLITE IN CONC. EQUAL TO OR EXCEEDING VALUES LISTED. OPIATES 2000 NG/ML Specimen Urine - Urine Performing Organization Address [facility] Phone Number [facility] [address] [place] [address] * COCAINE-URINE RANDOM (10/19/2018 11:36 PM AUTOMATIC NAILING MACHINE FEEDER) Cocaine-Urine NEG NEG-NEG [facility] Comment: RESULTS WERE OBTAINED BY IMMUNOASSAY AND ARE PRESUMPTIVE ONLY. POSITIVE INDICATES THE PRESENCE OF SUBSTANCE WITH CHARACTERISTICS SIMILAR TO DRUG-DRUG CLASS OR METABOLITE IN CONC. EQUAL TO OR EXCEEDING VALUES LISTED. COCAINE 300 NG/ML Specimen Urine - Urine Performing Organization Address [facility] Phone Number [facility] [address] [place] [address] * CANNABINOIDS-URINE RANDOM (10/19/2018 11:36 PM AUTOMATIC NAILING MACHINE FEEDER) THC NEG NEG-NEG [facility] Comment: RESULTS WERE OBTAINED BY IMMUNOASSAY AND ARE PRESUMPTIVE ONLY. POSITIVE INDICATES THE PRESENCE OF SUBSTANCE WITH CHARACTERISTICS SIMILAR TO DRUG-DRUG CLASS OR METABOLITE IN CONC. EQUAL TO OR EXCEEDING VALUES LISTED. CANNABINOIDS 50 NG/ML Specimen Urine - Urine Performing Organization Address [facility] Phone Number [facility] [address] [place] [address] * BENZODIAZEPINES-URINE RANDOM (10/19/2018 11:36 PM AUTOMATIC NAILING MACHINE FEEDER) Benzodiazepines POS (A) NEG-NEG [facility] Comment: RESULTS WERE OBTAINED BY IMMUNOASSAY AND ARE PRESUMPTIVE ONLY. POSITIVE INDICATES THE PRESENCE OF SUBSTANCE WITH CHARACTERISTICS SIMILAR TO DRUG-DRUG CLASS OR METABOLITE IN CONC. EQUAL TO OR EXCEEDING VALUES LISTED. BENZODIAZEPINES 200 NG/ML Specimen Urine - Urine Performing Organization Address [facility] Phone Number [facility] [address] [place] [address] * BARBITURATES-URINE RANDOM (10/19/2018 11:36 PM AUTOMATIC NAILING MACHINE FEEDER) Barbiturates,Ur POS (A) NEG-NEG [facility] ine Comment: RESULTS WERE OBTAINED BY IMMUNOASSAY AND ARE PRESUMPTIVE ONLY. POSITIVE INDICATES THE PRESENCE OF SUBSTANCE WITH CHARACTERISTICS SIMILAR TO DRUG-DRUG CLASS OR METABOLITE IN CONC. EQUAL TO OR EXCEEDING VALUES LISTED. BARBITURATES 200 NG/ML Specimen Urine - Urine Performing Organization Address City/[facility]/Zipcode Phone Number MAIN LAB [address] [place] [address] * AMPHETAMINES-URINE RANDOM (10/19/2018 11:36 PM AUTOMATIC NAILING MACHINE FEEDER) Amphetamines NEG NEG-NEG [facility] MAIN LAB Comment: RESULTS WERE OBTAINED BY IMMUNOASSAY AND ARE PRESUMPTIVE ONLY. POSITIVE INDICATES THE PRESENCE OF SUBSTANCE WITH CHARACTERISTICS SIMILAR TO DRUG-DRUG CLASS OR METABOLITE IN CONC. EQUAL TO OR EXCEEDING VALUES LISTED. AMPHETAMINES 1000 NG/ML Specimen Urine - Urine Performing Organization Address [facility] Phone Number MAIN LAB [address] [place] [address] * PHOSPHORUS (10/19/2018 11:36 PM AUTOMATIC NAILING MACHINE FEEDER) Phosphorus 2.8Comment: NOTE NEW REFERENCE 2.0 - 4.5 MG/DL [facility] MAIN LAB RANGES Specimen Blood Performing Organization Address [facility] Phone Number MAIN LAB [address] [place] [address] * MAGNESIUM (10/19/2018 11:36 PM AUTOMATIC NAILING MACHINE FEEDER) Magnesium 1.9 1.6 - 2.6 mg/dL MAIN LAB Specimen Blood Performing Organization Address [facility] Phone Number MAIN LAB [address] [place] [address] * IONIZED CALCIUM (10/19/2018 11:36 PM AUTOMATIC NAILING MACHINE FEEDER) Ionized Calcium 1.21 1.0 - 1.3 MMOL/L MAIN LAB Specimen Blood Performing Organization Address [facility] Phone Number MAIN LAB [address] [place] [address] * LACTIC ACID(LACTATE) (10/19/2018 11:36 PM AUTOMATIC NAILING MACHINE FEEDER) Lactic Acid 0.9 0.5 - 2.0 MMOL/L MAIN LAB Specimen Blood Performing Organization Address [facility] Phone Number MAIN LAB [address] [place] [address] * COMPREHENSIVE METABOLIC PANEL (10/19/2018 11:36 PM AUTOMATIC NAILING MACHINE FEEDER) Sodium 144 137 - 147 MMOL/L MAIN LAB Potassium 3.2 (L) 3.5 - [...] LAB CO2 28 21 - 30 MMOL/L MAIN LAB ALT (SGPT) 6 (L) 7 - 56 U/L [facility] MAIN LAB Anion Gap 6 3 - 12 MAIN LAB eGFR Non >60 >60 mL/min MAIN LAB Comment: Danish The eGFR is not validated for use in drug dosing adjustments.Continue to use estimated creatinine clearance per dosing reference text.Please contact the Clinical Pharmacist for questions. eGFR >60 >60 mL/min MAIN LAB Danish Comment: The eGFR is not validated for use in drug dosing adjustments.Continue to use estimated creatinine clearance per dosing reference text.Please contact the Clinical Pharmacist for questions. Specimen Blood Performing Organization Address City/[facility]/Zipcode Phone Number [facility] [address] [place] [address] * PROTIME INR (PT) (10/19/2018 11:36 PM AUTOMATIC NAILING MACHINE FEEDER) INR 1.0 0.8 - 1.2 [facility] Specimen Blood Performing Organization Address City/[facility]/Zipcode Phone Number [facility] [address] [place] [address] * CBC AND DIFF (10/19/2018 11:36 PM AUTOMATIC NAILING MACHINE FEEDER) White Blood 13.0 (H) 4.5 - 11.0 K/UL [facility] Cells RBC 3.11 (L) 4.0 - 5.0 M/UL MAIN LAB Hemoglobin 9.8 (L) 12.0 - 15.0 GM/DL [facility] MAIN LAB Hematocrit 29.4 (L) 36 - 45 % [facility] MAIN LAB MCV 94.3 80 - 100 FL [facility] MAIN LAB MCH 31.5 26 - 34 PG [facility] MAIN LAB MCHC 33.4 32.0 - 36.0 G/DL [facility] MAIN LAB RDW 14.6 11 - 15 % [facility] MAIN LAB Platelet Count 299 150 - 400 K/UL [facility] MAIN LAB MPV 8.6 7 - 11 FL [facility] MAIN LAB Neutrophils 86 (H) 41 - 77 % [facility] MAIN LAB Lymphocytes 10 (L) 24 - 44 % [facility] MAIN LAB Monocytes 4 4 - 12 % [facility] MAIN LAB Eosinophils 0 0 - 5 % [facility] MAIN [facility] Basophils 0 0 - 2 % [facility] MAIN LAB Absolute 11.10 (H) 1.8 - 7.0 K/UL [facility] MAIN LAB Neutrophil Count Absolute Lymph 1.30 1.0 - 4.8 K/UL [facility] MAIN LAB Count Absolute 0.60 0 - 0.80 K/UL [facility] MAIN LAB Monocyte Count Absolute 0.00 0 - 0.45 K/UL [facility] MAIN LAB Eosinophil Count Absolute 0.00 0 - 0.20 K/UL [facility] MAIN LAB Basophil Count Specimen Blood Performing Organization Address City/State/Zipcode Phone Number [facility]IN [facility] [address] [place] [address] * TELEMETRY STRIPS-SCAN (10/19/2018 12:00 AM AUTOMATIC NAILING MACHINE FEEDER) Narrative Performed At Ordered by an unspecified provider. * ECG-SCAN (10/19/2018 12:00 AM AUTOMATIC NAILING MACHINE FEEDER) Narrative Performed At Ordered by an unspecified provider. documented in this encounter Visit Diagnoses Diagnosis Cerebritis - Primary Unspecified cause of encephalitis, myelitis, and encephalomyelitis Altered mental status, unspecified altered mental status type Abscess of brain Intracranial abscess Acute respiratory failure with hypoxia and hypercapnia (HCC) Influenza A Influenza with other respiratory manifestations Paroxysmal atrial fibrillation (HCC) Atrial fibrillation Pneumocephalus Other conditions of brain Pneumonia of right upper lobe due to infectious organism (HCC) Hypertension, essential Unspecified essential hypertension Hyperlipidemia Other and unspecified hyperlipidemia CAD (coronary artery disease) Coronary atherosclerosis of unspecified type of vessel, [place] or graft COPD (chronic obstructive pulmonary disease) (HCC) Chronic airway obstruction, not elsewhere classified Depression Depressive disorder, not elsewhere classified documented in this encounter Admitting Diagnoses Diagnosis Pneumocephalus Other conditions of brain documented in this encounter Administered Medications Action Date Dose Rate Site Medication Order MAR Action 10/25/2018 8:44 PM CDT 650 mg acetaminophen (TYLENOL) oral solution Given 650 mg 650 mg, Per OG Tube, EVERY 6 HOURS PRN, Starting 10/20/18 at 0024, Until Mon10/26/18 at 2025, Pain non-opioid: may be used alone or in combination with opioid analgesia, TOTAL ACETAMINOPHEN DOSE NOT TO EXCEED 4GM DAILY, 650 mg Given 10/22/2018 8:30 PM CDT 650 mg Given 10/21/2018 8:13 PM CDT 10/28/2018 8:43 PM CDT 650 mg acetaminophen (TYLENOL) oral solution Given 650 mg 650 mg, Per OG Tube, EVERY 4 HOURS PRN, Starting 10/26/18 at 2030, Until 10/29/18 at 1846, Headache, Pain non-opioid: may be used alone or in combination with opioid analgesia, Temp > ..., Temp >38.3C; please notify provider if administered for temp, TOTAL ACETAMINOPHEN DOSE NOT TO EXCEED 4GM DAILY, 650 mg Given 10/28/2018 8:27 AM CDT 650 mg Given 10/27/2018 8:32 PM CDT 11/03/2018 12:50 PM CDT 650 mg acetaminophen (TYLENOL) oral solution Given 650 mg 650 mg, Per NG tube, EVERY 4 HOURS PRN, Starting 10/29/18 at 1846, Until 11/03/18 at 1617, Headache, Pain non-opioid: may be used alone or in combination with opioid analgesia, Temp > ..., Temp >38.3C; please notify provider if administered for temp, TOTAL ACETAMINOPHEN DOSE NOT TO EXCEED 4GM DAILY, 650 mg Given 11/03/2018 8:51 AM CDT 650 mg Given 11/03/2018 2:24 AM CDT acetaminophen (TYLENOL) rectal suppository 650 mg 650 mg, Rectal, EVERY 4 HOURS PRN, Starting Trinh 11/01/18 at 2155, Until 11/03/18 at 1617, Pain non-opioid: may be used alone or in combination with opioid analgesia, TOTAL ACETAMINOPHEN DOSE NOT TO EXCEED 4GM DAILY, 10/25/2018 8:48 PM CDT 500 mg acetaZOLAMIDE(#) (DIAMOX) suspension 500 Given mg 500 mg, Oral, TWICE DAILY, 2 doses, First dose on Mon10/25/18 at 1245, Last dose on Mon10/25/18 at 2100 500 mg Given 10/25/2018 2:00 PM CDT 10/27/2018 1:20 PM CDT 250 mL 9999 mL/hr albumin 5% injection 250 mL Given - New 250 mL, 250 mL, Intravenous, at 9,999 Bag mL/hr, ONCE, 1 dose, Mon10/27/18 at 1300 10/26/2018 12:34 PM CDT 2 mg alteplase (CATHFLO ACTIVASE) injection 2 Given mg 2 mg, Injection, ONCE, 1 dose, Mon10/26/18 at 1230 10/26/2018 9:12 AM CDT 200 mg amiodarone (CORDARONE) tablet 200 mg Given 200 mg, Per OG Tube, DAILY, First dose on [facility] 10/20/18 at 0900, Until Discontinued 200 mg Given 10/25/2018 10:25 AM CDT 200 mg Given 10/24/2018 9:58 AM CDT 10/20/2018 11:04 AM AUTOMATIC NAILING MACHINE FEEDER 2 g 200 mL/hr ampicillin (OMNIPEN) 2 g in sodium Given - New chloride 0.9% (NS) 100 mL IVPB (MB+) Bag 2 g, Intravenous, 100 mL, Administer over 30 Minutes, EVERY 4 HOURS, First dose on Mon10/20/18 at 1115, Until Discontinued 11/03/2018 8:55 AM CDT 500 mg ascorbic acid (VITAMIN C) tablet 500 mg Given 500 mg, Per NG tube, DAILY, 30 doses, First dose on Mon10/25/18 at 1645, Last dose on Mon11/23/18 at 0900 500 mg Given 11/02/2018 8:28 AM CDT 500 mg Given 11/01/2018 8:54 AM CDT 11/03/2018 8:55 AM CDT 81 mg aspirin chewable tablet 81 mg Given 81 mg, Per OG Tube, DAILY, First dose on [facility] 10/20/18 at 0900, Until Discontinued 81 mg Given 11/02/2018 8:28 AM CDT 81 mg Given 11/01/2018 8:54 AM CDT 11/02/2018 8:07 PM CDT 20 mg atorvastatin (LIPITOR) tablet 20 mg Given 20 mg, Per OG Tube, AT BEDTIME DAILY, First dose on [facility] 10/20/18 at 0030, Until Discontinued 20 mg Given 10/31/2018 8:27 PM CDT 20 mg Given 10/30/2018 8:08 PM CDT 10/31/2018 10:08 PM CDT 120 mL barium sulfate 40 % (VARIBAR THIN Given LIQUID) oral powder for suspension 120 mL 120 mL, Per NG tube, ONCE, 1 dose, Mon10/31/18 at 1600, To obtain medication: Call IR at [phone] 7am -5pm Mon-Fri, if after hours call Radiology at [phone]. To be administered 12 hours before Interventional Radiology procedure. Please verify scheduled date & time before administration. Give entire 300 mL of suspension. Mixing Instructions: 1. Gently shake the barium sulfate to loosen the powder. 2. Remove Cap. Add water to the 40% (w/v) line and replace the cap. 3. Invert bottle and tap with fingers to mix the powder into the water. 4. Shake vigorously for 30 seconds. Let stand for 5 minutes. 5. Suspension has hydrated and settled. Re-fill with water to the 40% line and replace cap. 6. Re-shake thoroughly. Product is now ready for use., 11/03/2018 7:50 AM CDT 0.5 mg budesonide respule (PULMICORT) nebulizer Given solution 0.5 mg 0.5 mg, Inhalation, RT TWICE DAILY, First dose on 10/28/18 at 1800, Until Discontinued, When administered by RT, will be per RT policy., 0.5 mg Given 11/02/2018 9:09 PM CDT 0.5 mg Given 11/02/2018 8:38 AM CDT 10/28/2018 8:24 AM CDT 0.5 mg budesonide respule (PULMICORT) nebulizer Given solution 1 mg 1 mg, Inhalation, RT TWICE DAILY, First dose on 10/20/18 at 0600, Until Discontinued, When administered by RT, will be per RT policy., 1 mg Given 10/27/2018 8:09 PM CDT 1 mg Given 10/27/2018 9:00 AM CDT calcium gluconate 1 g in sodium chloride 0.9% (NS) 110 mL IVPB (MB+) 1 g, Intravenous, 110 mL, Administer over 1 Hours, NEEDED (MANAGER ANIMATION FROM RX), Starting 10/20/18 at 0145, Until Mon11/03/18 at 1617, Other..., For calcium replacement, see admin instructions, For ionized calcium < 1.0 mg/dl, administer calcium gluconate 1g IVPB to run over 1 hour. Recheck ionized calcium level 4 hours after completion of infusion. Notify physician if ionized calcium < 1.0 mg/dL. Each 1 gm delivers 4.6 mEq calcium, 11/03/2018 12:27 PM CDT 2 g 200 mL/hr cefepime (MAXIPIME) 2 g in sodium Given chloride 0.9% (NS) 100 mL IVPB (MB+) 2 g, Intravenous, 100 mL, Administer over 30 Minutes, EVERY 8 HOURS, 41 doses, First dose on Mon10/23/18 at 1245, Last dose on Mon11/05/18 at 2045 2 g 200 mL/hr Given 11/03/2018 5:32 AM CDT 2 g 200 mL/hr Given 11/02/2018 8:06 PM CDT cefTRIAXone (ROCEPHIN) IVP 2 g 2 g, Intravenous, EVERY 12 HOURS, First dose on Mon11/06/18 at 0600, Until Discontinued, INSTR: IV PUSH -- RECONSTITUTE EACH 1 GM WITH 10 MLS 0.9% NACL , 11/03/2018 9:06 AM CDT 15 mL chlorhexidine gluconate (PERIDEX) 0.12 % Given solution 15 mL 15 mL, Swish & Spit, TWICE DAILY, First dose on Mon10/20/18 at 0900, Until Discontinued 15 mL Given 11/02/2018 8:07 PM CDT 15 mL Given 11/02/2018 8:27 AM CDT 11/03/2018 9:08 AM CDT collagenase (SANTYL) topical ointment Given Topical, TWICE DAILY, First dose on Mon10/23/18 at 0900, Until Discontinued, Apply to bilateral lowers wound bases, cover with dry gauze and secure with tape. Dressing changes daily., Given 11/02/2018 8:08 PM CDT Given 11/02/2018 8:44 AM CDT 10/31/2018 4:30 AM CDT 0.3 mcg/kg/hr 4 mL/hr dexmedetomidine (PRECEDEX) 400 mcg/NS Dose/Rate 100 ml IV drip Change 0.2-1 mcg/kg/hr 52.8 kg (2.64-13.2 mL/hr, rounded to 2.6-13.2 mL/hr) 100 mL, at 2.6-13.2 mL/hr, Intravenous, TITRATE DIRECTED , Starting Mon10/24/18 at 1200, Until Mon10/31/18 at 0745, Initiate at 0.2 mcg/kg/hr and maintain for 30 minutes -Titrate to keep: RASS of 0 to -2 a.) Titrate infusion in increments of 0.1 mcg/kg/hr at 5 minute intervals until goal sedation level achieved or maintenance exceeds 1.0 mcg/kg/hr b.) If HR < 60 or SBP < 90 mmHg hold for 10 minutes then restart at dose reduced by 0.3 mcg/kg/hr c.) Notify physician for persistent hypotension (SBP < 90 mmHg) or bradycardia (HR < 60) over 15 minutes d.) For breakthrough agitation NOTIFY PHYSICIAN and consider bolus of 1 mcg/kg over 20 min if HR and BP are acceptable. e.) Notify physician if maintenance exceeds 1 mcg/kg/hr -Taper agent continuously to lowest effective dose to achieve desired level of sedation keeping patient calm and able to participate in care. Std conc=4mcg/ml NOTE: For weight-based dosing, use patient dosing weight NOTE: This is a HIGH ALERT Medication., 0.5 mcg/kg/hr 6.6 mL/hr Dose/Rate Change 10/30/2018 9:51 PM CDT 1 mcg/kg/hr 13.2 mL/hr Given - New Bag 10/30/2018 8:41 PM CDT 10/31/2018 8:43 AM CDT 100 mg docusate (COLACE) oral solution 100 mg Given 100 mg, Per OG Tube, TWICE DAILY, First dose on Mon10/19/18 at 2330, Until Discontinued, Hold for loose stools, 100 mg Given 10/30/2018 8:09 PM CDT 100 mg Given 10/29/2018 8:25 AM CDT 10/20/2018 8:55 PM AUTOMATIC NAILING MACHINE FEEDER 20 mg famotidine (PEPCID) injection 20 mg Given 20 mg, Intravenous, TWICE DAILY, First dose on Mon10/19/18 at 2330, Until Discontinued, DILUTE W/ 10ML NS OR D5W. GIVE IV PUSH OVER 2 MIN, 20 mg Given 10/20/2018 12:58 AM AUTOMATIC NAILING MACHINE FEEDER 11/03/2018 8:51 AM CDT 20 mg famotidine (PEPCID) oral suspension 20 Given mg 20 mg, Per NG tube, TWICE DAILY, First dose on [facility] 10/25/18 at 2100, Until Discontinued 20 mg Given 11/02/2018 8:07 PM CDT 20 mg Given 11/02/2018 8:27 AM CDT 10/20/2018 12:58 AM AUTOMATIC NAILING MACHINE FEEDER 25 mcg fentaNYL citrate PF (SUBLIMAZE) Given injection 25 mcg 25 mcg, Intravenous, EVERY 2 HOURS PRN, Starting 10/20/18 at 0024, Until 10/20/18 at 0149, Pain Injectable 10/20/2018 3:00 PM AUTOMATIC NAILING MACHINE FEEDER 25 mcg fentaNYL citrate PF (SUBLIMAZE) Given injection 25 mcg 25 mcg, Intravenous, ONCE, 1 dose, 10/20/18 at 1515 10/29/2018 5:38 PM CDT 25 mcg fentaNYL citrate PF (SUBLIMAZE) Given injection 25-50 mcg 25-50 mcg, Intravenous, EVERY 2 HOURS PRN, Starting 10/20/18 at 0149, Until 10/29/18 at 1758, Pain Injectable 25 mcg Given 10/29/2018 5:09 PM CDT 25 mcg Given 10/29/2018 11:42 AM CDT 11/03/2018 5:32 AM CDT 25 mcg fentaNYL citrate PF (SUBLIMAZE) Given injection 25-50 mcg 25-50 mcg, Intravenous, EVERY 1 HOUR PRN, Starting 10/29/18 at 1800, Until 11/03/18 at 1617, Pain Injectable 50 mcg Given 11/02/2018 5:48 PM CDT 50 mcg Given 11/02/2018 3:58 PM CDT 11/01/2018 4:43 PM CDT 50 mcg fentaNYL citrate PF (SUBLIMAZE) Given injection 25-50 mcg 25-50 mcg, Intravenous, ONCE, 1 dose, [facility] 11/01/18 at 1615, Pre-procedure anxiolysis, Intra-procedure (IR) 11/01/2018 4:56 PM CDT 50 mcg fentaNYL citrate PF (SUBLIMAZE) Given injection INTRA-PROCEDURE MED, Starting [facility] 11/01/18 at 1647, Until [facility] 3/21/19 at 1656 50 mcg Given 11/01/2018 4:50 PM CDT 50 mcg Given 11/01/2018 4:47 PM CDT 10/26/2018 3:40 PM CDT 200 mg 100 mL/hr fluconazole (DIFLUCAN) 200 mg/NS 100 mL Given - New IVPB Bag 200 mg, Intravenous, 100 mL, Administer over 1 Hours, EVERY 24 HOURS, First dose on [facility] 10/20/18 at 1600, Until Discontinued 200 mg 100 mL/hr Given - New Bag 10/25/2018 5:30 PM CDT 200 mg 100 mL/hr Given - New Bag 10/24/2018 6:17 PM CDT 10/25/2018 12:36 PM CDT 20 mg furosemide (LASIX) injection 20 mg Given 20 mg, 2 mL, Intravenous, ONCE, 1 dose, [facility] 10/25/18 at 1145, PROTECT FROM LIGHT, 10/25/2018 6:27 PM CDT 20 mg furosemide (LASIX) injection 20 mg Given 20 mg, 2 mL, Intravenous, ONCE, 1 dose, [facility] 10/25/18 at 1800, PROTECT FROM LIGHT, 10/27/2018 8:41 AM CDT 20 mg furosemide (LASIX) injection 20 mg Given 20 mg, 2 mL, Intravenous, DAILY, First dose on [facility] 10/27/18 at 0900, Until Discontinued, PROTECT FROM LIGHT, 11/01/2018 10:04 AM CDT 20 mg furosemide (LASIX) injection 20 mg Given 20 mg, 2 mL, Intravenous, ONCE, 1 dose, [facility] 11/01/18 at 0945, PROTECT FROM LIGHT, 10/20/2018 3:00 PM AUTOMATIC NAILING MACHINE FEEDER 10 mL gadobenate dimeglumine (MULTIHANCE) Given injection 10 mL 10 mL, Intravenous, ONCE, 1 dose, [facility] 10/20/18 at 1530, NOTE: This is a HIGH ALERT Medication., 10/26/2018 5:00 AM CDT 10 mL gadobenate dimeglumine (MULTIHANCE) Given injection 10 mL 10 mL, Intravenous, ONCE, 1 dose, [facility] 10/26/18 at 0500, NOTE: This is a HIGH ALERT Medication., 10/28/2018 10:15 PM CDT 5,000 Units Abdominal Tissue heparin (porcine) PF syringe 5,000 Units Given 5,000 Units, Subcutaneous, EVERY 8 HOURS, 27 doses, First dose on Mon10/20/18 at 0600, Last dose on Mon10/28/18 at 2200, NOTE: This is a HIGH ALERT Medication., 5,000 Units Abdominal Tissue Given 10/28/2018 2:15 PM CDT 5,000 Units Abdominal Tissue Given 10/28/2018 6:04 AM CDT 11/03/2018 5:32 AM CDT 5,000 Units Abdomen:RLQ heparin (porcine) PF syringe 5,000 Units Given 5,000 Units, Subcutaneous, EVERY 8 HOURS, First dose on Mon10/30/18 at 1400, Until Discontinued, NOTE: This is a HIGH ALERT Medication., 5,000 Units Abdominal Tissue Given 11/02/2018 9:18 PM CDT 5,000 Units Abdominal Tissue Given 11/02/2018 1:45 PM CDT 11/01/2018 5:04 PM CDT 80 mL iodixanol (VISIPAQUE-270) 270 mg/mL Given injection 80 mL 80 mL, SEE ADMIN INSTRUCTIONS, ONCE, 1 dose, [facility] 11/01/18 at 1715, G-tube NOTE: This is a HIGH ALERT Medication., 10/20/2018 3:00 PM AUTOMATIC NAILING MACHINE FEEDER 100 mL iohexol (OMNIPAQUE-350) 350 mg/mL Given injection 100 mL 100 mL, Intravenous, ONCE, 1 dose, [facility] 10/20/18 at 1500, NOTE: This is a HIGH ALERT Medication., 10/20/2018 11:00 PM AUTOMATIC NAILING MACHINE FEEDER 20 g lactulose oral solution 20 g Given 20 g (30 mL), Per NG tube, THREE TIMES DAILY, First dose on Mon10/20/18 at 2245, Until Discontinued 10/29/2018 8:25 AM CDT 500 mg levETIRAcetam (KEPPRA) oral solution 500 Given mg 500 mg, Feeding Tube, TWICE DAILY, First dose on Mon10/24/18 at 2145, Until Discontinued 500 mg Given 10/28/2018 8:43 PM CDT 500 mg Given 10/28/2018 8:27 AM CDT 10/24/2018 9:58 AM CDT 500 mg levETIRAcetam (KEPPRA) tablet 500 mg Given 500 mg, Oral, TWICE DAILY, First dose on Mon10/21/18 at 1115, Until Discontinued 500 mg Given 10/23/2018 8:34 PM CDT 500 mg Given 10/23/2018 9:18 AM CDT 10/30/2018 4:12 PM CDT 0.5 mg LORazepam (ATIVAN) injection 0.5-1 mg Given 0.5-1 mg, Intravenous, ONCE, 1 dose, 10/30/18 at 1615, PROTECT FROM LIGHT, 10/30/2018 6:00 PM CDT 1 mg LORazepam (ATIVAN) injection 0.5-1 mg Given 0.5-1 mg, Intravenous, ONCE, 1 dose, Mon10/30/18 at 1800, PROTECT FROM LIGHT, 10/30/2018 6:32 PM CDT 1 mg LORazepam (ATIVAN) injection 1 mg Given 1 mg, Intravenous, ONCE, 1 dose, Mon10/30/18 at 1830, PROTECT FROM LIGHT, LORAZEPAM 2 MG/ML LOUISE SOLN (Cabinet Override) NOW, 1 dose, Mon10/30/18 at 1845, Created by cabinet override, Created by cabinet override, 11/01/2018 7:22 AM CDT 1 g 100 mL/hr magnesium sulfate 1 g/D5W 100 mL IVPB Given - New 1 g, Intravenous, 100 mL, Administer Bag over 1 Hours, NEEDED, Starting 10/20/18 at 0145, Until 11/03/18 at 1617, Other..., magnesium replacement (see Admin Instructions), If urine output < 30 mL/hr or SCr >2 mg/dL, check with physician prior to giving magnesium replacement. - For Serum Magnesium > 2.1 mg/dL, No replacement necessary. - For Serum Magnesium 1.8 - 2.0 mg/dL, give Magnesium Sulfate 2 grams IV over 2 hours. - For Serum Magnesium 1.6 - 1.7 mg/dL, give Magnesium Sulfate 3 grams IV over 3 hours. - For Serum Magnesium 1.3 - 1.5 mg/dL, give Magnesium Sulfate 4 grams IV over 4 hours. - For Serum Magnesium <=1.2 mg/dL, give Magnesium Sulfate 6 grams IV over 6 hours AND notify physician. Recheck serum magnesium level 2 hours after completion of appropriate replacement dose. Repeat this standing order x 1. Notify physician if serum magnesium < 2.1 mg/dL after two replacements. Infuse each 1gm Magnesium sulfate over 1 hour. Each 1 gm delivers 8.1 mEq Magnesium., 1 g 100 mL/hr Given - New Bag 11/01/2018 6:16 AM CDT 1 g 100 mL/hr Given - New Bag 10/24/2018 5:01 AM CDT 11/02/2018 8:07 PM CDT 3 mg melatonin tablet 3 mg Given 3 mg, Oral, AT BEDTIME DAILY, First dose on Mon10/31/18 at 2100, Until Discontinued 3 mg Given 10/31/2018 8:28 PM CDT 10/23/2018 9:17 AM CDT 2 g 280 mL/hr meropenem (MERREM) 2 g in sodium Given - New chloride 0.9% (NS) 140 mL IVPB Bag 2 g, Intravenous, at 280 mL/hr, EVERY 8 HOURS, First dose on Mon10/20/18 at 1200, Until Discontinued 2 g 280 mL/hr Given - New Bag 10/23/2018 1:06 AM CDT 2 g 280 mL/hr Given - New Bag 10/22/2018 6:00 PM CDT 10/21/2018 6:55 AM CDT 2.5 mg metoprolol (LOPRESSOR) injection 2.5 mg Given 2.5 mg, Intravenous, EVERY 6 HOURS, First dose on [facility] 10/20/18 at 1330, Until Discontinued, Hold for heart rate < 60 bpm PROTECT FROM LIGHT, 2.5 mg Given 10/21/2018 1:00 AM AUTOMATIC NAILING MACHINE FEEDER 2.5 mg Given 10/20/2018 7:09 PM AUTOMATIC NAILING MACHINE FEEDER 11/01/2018 6:58 PM CDT 5 mg metoprolol (LOPRESSOR) injection 5 mg Given 5 mg, Intravenous, ONCE, 1 dose, [facility] 11/01/18 at 1845, Hold for heart rate < 60 bpm PROTECT FROM LIGHT, 10/27/2018 8:40 AM CDT 12.5 mg metoprolol tartrate (LOPRESSOR) tablet Given 12.5 mg 12.5 mg, Per OG Tube, TWICE DAILY, First dose on Mon10/20/18 at 0900, Until Discontinued, Hold for heart rate < 60 bpm or systolic BP < 100, 12.5 mg Given 10/26/2018 8:41 PM CDT 12.5 mg Given 10/26/2018 9:12 AM CDT 11/03/2018 8:54 AM CDT 37.5 mg metoprolol(#) (LOPRESSOR) solution 37.5 Given mg 37.5 mg, Feeding Tube, TWICE DAILY, First dose on 11/03/18 at 0900, Until Discontinued, Hold for heart rate < 60 bpm or systolic BP < 90, 11/02/2018 8:27 AM CDT 50 mg metoprolol(#) (LOPRESSOR) solution 50 mg Given 50 mg, Feeding Tube, TWICE DAILY, First dose on Mon11/02/18 at 0800, Until Discontinued, Hold for heart rate < 60 bpm or systolic BP < 90, 11/02/2018 5:41 PM CDT 50 mg metoprolol(#) (LOPRESSOR) solution 50 mg Given 50 mg, Feeding Tube, TWICE DAILY, First dose on Mon11/02/18 at 1745, Until Discontinued, Hold for heart rate < 60 bpm or systolic BP < 90, 11/01/2018 4:39 PM CDT 1 mg midazolam (VERSED) injection 1 mg Given 1 mg, Intravenous, ONCE, 1 dose, [facility] 11/01/18 at 1615, Pre-procedure anxiolysis, Intra-procedure (IR) 11/01/2018 4:45 PM CDT 1 mg midazolam (VERSED) injection Given INTRA-PROCEDURE MED, Starting [facility] 11/01/18 at 1645, Until [facility] 11/01/18 at 1645 10/29/2018 8:25 AM CDT 10 mL milk of magnesia (CONC) oral suspension Given 10 mL 10 mL, Per OG Tube, DAILY, First dose on [facility] 10/20/18 at 0900, Until Discontinued, May hold if BM within 24 hours of dose. 10 mL CONC=30 mL MOM, 10 mL Given 10/28/2018 8:27 AM CDT 10 mL Given 10/22/2018 8:00 AM CDT 10/28/2018 8:42 PM CDT 1 patch Arm, Left nicotine (NICODERM CQ STEP 1) 21 mg/day Patch/Topica patch 1 patch l Applied 1 patch, Transdermal, Administer over 24 Hours, DAILY, First dose on 10/20/18 at 0100, Until Discontinued 1 patch Arm, Left Patch/Topical Applied 10/27/2018 10:00 PM CDT 1 patch Arm, Left Patch/Topical Applied 10/26/2018 8:42 PM CDT 10/22/2018 12:04 PM CDT 500,000 Units nystatin (MYCOSTATIN) oral suspension Given 500,000 Units 500,000 Units, Oral, FOUR TIMES DAILY, First dose on 10/20/18 at 0900, Until Discontinued 500,000 Units Given 10/22/2018 8:00 AM CDT 500,000 Units Given 10/21/2018 8:13 PM CDT 11/03/2018 9:03 AM CDT 4 drops ofloxacin (FLOXIN) 0.3 % (ophthalmic for Given otic use) solution 4 drop 4 drop, Both Ears, THREE TIMES DAILY, 15 doses, First dose on Mon10/29/18 at 1800, Last dose on Mon11/03/18 at 0900 4 drops Given 11/02/2018 8:09 PM CDT 4 drops Given 11/02/2018 3:04 PM CDT 11/01/2018 9:03 AM CDT 4 mg ONDANSETRON HCL (PF) 4 MG/2 ML IJ SOLN Given (Cabinet Override) NOW, 1 dose, [facility] 11/01/18 at 0915, Created by cabinet override, Created by shannaninet jenniferide, 10/30/2018 11:19 PM CDT 75 mg oseltamivir (TAMIFLU) oral suspension 75 Given mg 75 mg, Per NG tube, TWICE DAILY, 20 doses, First dose on Mon10/21/18 at 1215, Last dose on Mon10/30/18 at 2100, Shake GENTLY before use., 75 mg Given 10/30/2018 10:50 AM CDT 75 mg Given 10/29/2018 9:16 PM CDT 10/28/2018 8:43 PM CDT 5 mg oxyCODONE (ROXICODONE) oral solution 5 Given mg 5 mg, Per OG Tube, EVERY 4 HOURS PRN, Starting 10/20/18 at 0024, Until 10/29/18 at 1846, Pain PO 5 mg Given 10/28/2018 12:49 PM CDT 5 mg Given 10/28/2018 8:26 AM CDT 11/03/2018 1:11 PM CDT 10 mg oxyCODONE (ROXICODONE) oral solution Given 5-15 mg 5-15 mg, Per NG tube, EVERY 4 HOURS PRN, Starting 10/29/18 at 1845, Until 11/03/18 at 1617, Pain PO 5 mg Given 11/03/2018 10:31 AM CDT 10 mg Given 11/03/2018 8:51 AM CDT pancrelipase 20,000 Units/ sodium bicarbonate 650 mg(#) (KU CLOG DESTROYER) for occluded feeding tube cap 1 capsule 1 capsule, Feeding Tube, NEEDED (MANAGER ANIMATION FROM RX), Starting 10/21/18 at 0733, Until 11/03/18 at 1617, Other..., Occluded Feeding Tube, 1. Open one KU CLOG DESTROYER CAPSULE (pancrelipase 20,000 units/ sodium bicarbonate 650 mg) and pour contents into mortar cup. 2. Dissolve in 5 - 10 ml sterile water. This will take ~ 1-2 minutes, with stirring required. Some sediment will be present (likely from capsule ingredients). 3. Once dissolved, let solution sit for 1-2 minutes, allowing sediment to fall to bottom of mortar cup. 4. Draw enzyme/bicarbonate solution into oral syringe (avoid sediment as best possible). 5. Instill enzyme solution under light pressure, and use a light "back and forth" motion with plunger to help dislodge the clog. 6. Clamp the tube for 5-15 minutes, and then try to aspirate or flush with warm sterile water. May repeat x 1. Notify physician if tube remains occluded following administration., 10/24/2018 8:33 PM CDT 40 mg pantoprazole(#) (PROTONIX) suspension 40 Given mg 40 mg, Per NG tube, DAILY, First dose on 10/21/18 at 0845, Until Discontinued 40 mg Given 10/23/2018 8:38 PM CDT 40 mg Given 10/22/2018 8:33 PM CDT 10/20/2018 10:10 AM AUTOMATIC NAILING MACHINE FEEDER 3 Diluted mL perflutren lipid microspheres (DEFINITY) Given injection 1-20 Diluted mL 1-20 Diluted mL, Intravenous, ONCE PRN, 1 dose, Starting 10/20/18 at 1009, Until 10/20/18 at 1010, For Procedure, A corporate director of human resources may only administer Definity through a saline lock. If IV is in use or a port, PICC, or central line is being used a nurse must administer. NOTE: This is a HIGH ALERT Medication., MAC Procedure Area Only - Medications 11/03/2018 8:52 AM CDT 20 mEq potassium chloride oral solution 20 mEq Given 20 mEq, Per OG Tube, DAILY, First dose on 10/20/18 at 0900, Until Discontinued, - Tablet may be dispersed in water. Place tab in 30 mL of water for 40-60 seconds. - Gently swirl until fully dispersed. If particles remain after admin, add small amount of water and admin remaining content. - DO NOT CRUSH. Tablet may be split in half. , 20 mEq Given 11/02/2018 9:42 AM CDT 20 mEq Given 11/01/2018 8:44 AM CDT 11/01/2018 6:15 AM CDT 40 mEq potassium chloride oral solution 40-60 Given mEq 40-60 mEq, Per NG tube, NEEDED, Starting 10/20/18 at 0145, Until 11/03/18 at 1617, Other..., For potassium replacement, See admin instructions, If urine output < 30 mL/hr or SCr >2 mg/dL, check with physician prior to giving K+ replacement. - K 3-4 mmol/L, administer KCl 40 mEq PO/NG x1 dose - K 2.5-2.9 mmol/L, administer KCl 60 mEq PO/NG x1 dose AND notify physician for additional dosing - K < 2.5 mmol/L notify physician for dosing Recheck serum potassium two hours after completion of appropriate replacement dose. Repeat this standing order x 2. Notify physician if serum potassium < 3.3 mmol/L after three replacements. Do NOT break or crush tablet, 40 mEq Given 10/28/2018 6:04 AM CDT 40 mEq Given 10/26/2018 5:50 AM CDT potassium chloride SR (K-DUR) tablet 40-60 mEq 40-60 mEq, Oral, NEEDED, Starting 10/20/18 at 0145, Until 11/03/18 at 1617, Other..., For potassium replacement, See admin instructions, If urine output < 30 mL/hr or SCr >2 mg/dL, check with physician prior to giving K+ replacement. - K 3-4 mmol/L, administer KCl 40 mEq PO/NG x1 dose - K 2.5-2.9 mmol/L, administer KCl 60 mEq PO/NG x1 dose AND notify physician for additional dosing - K < 2.5 mmol/L notify physician for dosing Recheck serum potassium two hours after completion of appropriate replacement dose. Repeat this standing order x 2. Notify physician if serum potassium < 3.3 mmol/L after three replacements. Do NOT break or crush tablet, 10/23/2018 4:25 PM CDT 16 mmol 63 mL/hr potassium phosphate 16 mmol in dextrose Given - New 5% (D5W) 250 mL IVPB (std) Bag 16 mmol, Intravenous, 250 mL, Administer over 4 Hours, ONCE, 1 dose, [facility] 10/23/18 at 1530, Each 10mM K Phos delivers 14.7meq K+ NOTE: This is a HIGH ALERT Medication., 10/25/2018 5:44 AM CDT 20 mmol 41.7 mL/hr potassium phosphate 20 mmol in dextrose Given - New 5% (D5W) 250 mL IVPB (CENTRAL LINE ONLY) Bag 20 mmol, Intravenous, 250 mL, Administer over 6 Hours, ONCE, 1 dose, [facility] 10/25/18 at 0500, Central Line ONLY Each 10mM K Phos delivers 14.7meq K+ NOTE: This is a HIGH ALERT Medication., 10/24/2018 12:56 PM CDT 40 mcg/kg/min 13 mL/hr propofol (DIPRIVAN) 10 mg/mL IV infusion Dose/Rate 5-75 mcg/kg/min Change 54.3 kg Dosing weight (1.629-24.435 mL/hr, rounded to 1.6-24.4 mL/hr) 100 mL, at 1.6-24.4 mL/hr, Intravenous, TITRATE DIRECTED , Starting 10/20/18 at 0000, Until 10/24/18 at 1319, -Initiate at 10 mcg/kg/min (No loading dose) -Titrate to keep: RASS of 0 to -2- -Increase in 10 mcg/kg/min increments every 1 minute to achieve goal sedation level. -Call physician if maintenance exceeds 150 mcg/kg/min -Taper agent continuously to lowest effective dose to achieve desired level of sedation keeping patient calm and able to participate in care. NOTE: This is a HIGH ALERT Medication., 30 mcg/kg/min 9.8 mL/hr Dose/Rate Change 10/24/2018 12:19 PM CDT 20 mcg/kg/min 6.5 mL/hr Given - New Bag 10/24/2018 10:04 AM CDT 10/20/2018 11:17 PM AUTOMATIC NAILING MACHINE FEEDER 550 mg rifaximin(#) (XIFAXAN) suspension 550 mg Given 550 mg, Per NG tube, TWICE DAILY, First dose on Mon10/20/18 at 2245, Until Discontinued, Reserved for peds and patients with corpack tubes, 11/01/2018 10:06 PM CDT 1 mg risperiDONE (RISPERDAL M-TAB; Given RISPERIDONE M-TAB) rapid dissolve tablet 1 mg 1 mg, SEE ADMIN INSTRUCTIONS, ONCE, 1 dose, [facility] 11/01/18 at 2200, Place on tongue and allow to dissolve., 10/30/2018 8:09 PM CDT 0.5 mg risperiDONE (RISPERDAL) tablet 0.5 mg Given 0.5 mg, Oral, AT BEDTIME DAILY, First dose on Mon10/30/18 at 2100, Until Discontinued 11/02/2018 8:07 PM CDT 1 mg risperiDONE (RISPERDAL) tablet 1 mg Given 1 mg, Oral, AT BEDTIME DAILY, First dose on Mon10/31/18 at 2100, Until Discontinued 1 mg Given 10/31/2018 8:27 PM CDT 10/31/2018 8:43 AM CDT 10 mL senna/docusate (SENOKOT-S) solution 10 Given mL 10 mL, Per OG Tube, TWICE DAILY, First dose on Mon10/19/18 at 2330, Until Discontinued, Hold for loose stools., 10 mL Given 10/30/2018 8:09 PM CDT 10 mL Given 10/29/2018 8:25 AM CDT 11/02/2018 8:07 PM CDT 50 mg sertraline (ZOLOFT) tablet 50 mg Given 50 mg, SEE ADMIN INSTRUCTIONS, AT BEDTIME DAILY, First dose on Mon10/20/18 at 0030, Until Discontinued, Administer Per OG Tube., 50 mg Given 10/31/2018 8:27 PM CDT 50 mg Given 10/30/2018 8:08 PM CDT 10/22/2018 9:19 AM CDT 50 mL/hr sodium chloride 0.45 % infusion Given - New 1,000 mL, Intravenous, at 50 mL/hr, Bag CONTINUOUS, Starting Mon10/21/18 at 0515, Until Mon10/23/18 at 0514 50 mL/hr Given - New Bag 10/21/2018 6:11 AM CDT 10/20/2018 12:59 AM AUTOMATIC NAILING MACHINE FEEDER 500 mL sodium chloride 0.9 % infusion Given - New 500 mL, 500 mL, Intravenous, BOLUS, 1 Bag dose, 10/20/18 at 0045 10/24/2018 8:50 PM CDT 75 mL/hr sodium chloride 0.9 % infusion Given - New 1,000 mL, Intravenous, at 75 mL/hr, Bag CONTINUOUS, Starting 10/23/18 at 0930, Until [facility] 10/25/18 at 0929 75 mL/hr Given - New Bag 10/24/2018 5:02 AM CDT 75 mL/hr Given - New Bag 10/23/2018 9:58 AM CDT 10/28/2018 4:11 AM CDT 500 mL sodium chloride 0.9 % infusion Given - New 500 mL, 500 mL, Intravenous, BOLUS, 1 Bag dose, [place] 10/28/18 at 0345 SODIUM CHLORIDE 0.9 % IV SOLP (Cabinet Override) NOW, 1 dose, [place] 10/28/18 at 0400, Created by cabinet override, Created by cabinet override, 10/20/2018 3:00 PM AUTOMATIC NAILING MACHINE FEEDER 50 mL 2.5 mL/hr sodium chloride PF 0.9% injection 50 mL Given 50 mL, Intravenous, at 2.5 mL/hr, ONCE, 1 dose, [facility] 10/20/18 at 1500, DO NOT SEND this medication unless it is requested. This med is usually available in floor stock., Intra-procedure (IR) 10/28/2018 8:27 AM CDT 12.5 mg spironolactone (ALDACTONE) suspension Given 12.5 mg 12.5 mg, Oral, DAILY, First dose on Mon10/26/18 at 1130, Until Discontinued, NURSING: Please educate patient and document. Avoid using salt substitutes which have a high potassium content (Nu-Salt)., 12.5 mg Given 10/27/2018 12:20 PM CDT 12.5 mg Given 10/26/2018 12:29 PM CDT 10/21/2018 9:42 PM CDT 750 mg 150 mL/hr vancomycin (VANCOCIN) 750 mg in D5W Given - New 150mL IVPB (premade) Bag 750 mg (rounded from 811.5 mg=15 mg/kg 54.1 kg), Intravenous, 150 mL, Administer over 60 Minutes, EVERY 12 HOURS, First dose on 10/20/18 at 2200, Until Discontinued, Note Pharmacokinetic Monitoring: Please record infusion start time (Action=Given) and stop time (Action=Completed) of dose when blood levels are drawn., 750 mg 150 mL/hr Given - New Bag 10/21/2018 9:31 AM CDT 750 mg 150 mL/hr Given - New Bag 10/20/2018 9:16 PM AUTOMATIC NAILING MACHINE FEEDER 10/24/2018 10:26 AM CDT 1,000 mg 250 mL/hr vancomycin (VANCOCIN) 1,000 mg in Given - New dextrose 5% (D5W) 250 mL IVPB ([id number]) Bag 1,000 mg (1 g), Intravenous, 250 mL, Administer over 60 Minutes, EVERY 12 HOURS, First dose on 10/22/18 at 0900, Until Discontinued, Note Pharmacokinetic Monitoring: Please record infusion start time (Action=Given) and stop time (Action=Completed) of dose when blood levels are drawn., 1,000 mg 250 mL/hr Given - New Bag 10/23/2018 9:43 PM CDT 1,000 mg 250 mL/hr Given - New Bag 10/23/2018 9:19 AM CDT 10/20/2018 12:31 PM AUTOMATIC NAILING MACHINE FEEDER 1,000 mg 250 mL/hr vancomycin (VANCOCIN) 1,000 mg in sodium Given - New chloride 0.9% (NS) 250 mL IVPB Bag ([id number]) 1,000 mg (1 g), Intravenous, 250 mL, Administer over 60 Minutes, ONCE, 1 dose, 10/20/18 at 1000, Note Pharmacokinetic Monitoring: Please record infusion start time (Action=Given) and stop time (Action=Completed) of dose when blood levels are drawn., 11/03/2018 9:45 AM CDT 220 mg zinc sulfate capsule 220 mg Given 220 mg, Per NG tube, DAILY, 14 doses, First dose on Trinh 10/25/18 at 1645, Last dose on Mon11/07/18 at 0900, Each cap delivers 50mg elemental zinc., 220 mg Given 11/02/2018 8:28 AM CDT 220 mg Given 11/01/2018 8:45 AM CDT documented in this encounter
--- NOTE | 2018-12-02 20:12 | ED General ---
General Chief Complaint: Catheter/Drain/Tube Problems Stated Complaint: LEG SWELLING,INFECTED FEEDING TUBE Source of Information: Patient Exam Limitations: No Limitations History of Present Illness Date Seen by Provider: Dec 02, 2018 Time Seen by Provider: 20:11 Initial Comments To ER with concerns of infection around her PEG tube and swelling in her legs. In July she had a CABG with bilateral saphenous veins used as a graft. This was done at the [facility]. She also had a PEG tube placed during that time. Currently she is receiving IV antibiotics through a PICC line in the right arm for wounds of the saphenous vein harvesting site on the left. She denies fevers or chills. Denies shortness of breath or cough or chest pains. States that she is supposed to be taking Lasix but is unable to afford it. She has some erythema around the PEG tube insertion site and is concerned that it is infected. Timing/Duration: 2-3 Days Severity: Moderate Associated Systoms: Denies Symptoms; No Fever/Chills Allergies and Home Medications Allergies Coded Allergies: No Known Drug Allergies (Unverified , 08/23/18) Home Medications Amiodarone HCl 200 Mg Tablet, 200 MG PO DAILY, (Reported) TAKE UNTIL 10-21-18 Aspirin 81 Mg Tab.chew, 81 MG PO DAILY, (Reported) Atorvastatin Calcium 20 Mg Tablet, 20 MG PO HS, (Reported) Benzonatate 100 Mg Capsule, 200 MG PO TID PRN for COUGH, (Reported) Duloxetine HCl 30 Mg Capsule.dr, 30 MG PO BID, (Reported) Gabapentin 800 Mg Tablet, 800 MG PO QID, (Reported) Lisinopril 5 Mg Tablet, 5 MG PO DAILY, (Reported) Melatonin 5 Mg Capsule, 5 MG PO HS PRN for SLEEP, (Reported) Metoprolol Succinate 25 Mg Tab.er.24h, 25 MG PO DAILY, (Reported) Ondansetron HCl 4 Mg Tab, 8 MG PO BID PRN for NAUSEA/VOMITING-1ST LINE, ( Reported) TAKES 2 (4MG) TABLETS Sodium Hypochlorite 473 Ml Solution, TOP BID, (Reported) PACK WOUND WITH 4X4 GAUZE AND CHANGE DRESSING TWICE DAILY Varenicline Tartrate 1 Mg Tablet, 1 MG PO BID, (Reported) Patient Home Medication List Home Medication List Reviewed: Yes Review of Systems Review of Systems Constitutional: see HPI; No chills, No fever EENTM: see HPI Respiratory: no symptoms reported Cardiovascular: no symptoms reported Genitourinary: no symptoms reported Musculoskeletal: no symptoms reported Skin: see HPI Psychiatric/Neurological: No Symptoms Reported Hematologic/Lymphatic: No Symptoms Reported Past Etzqphq-Sszzey-Oqmtfn Hx Patient Social History Type Used: Cigarettes Former Smoker, Quit: Jul 22, 2018 2nd Hand Smoke Exposure: Yes (quit since recent hospitalization) Recent Foreign Travel: No Contact w/Someone Who Travel: No Recent Hopitalizations: Yes (11/30) Immunizations Up To Date Tetanus Booster (TDap): Unknown PED Vaccines UTD: Yes Date of Pneumonia Vaccine: Jul 17, 2017 Date of Influenza Vaccine: Aug 03, 2018 Seasonal Allergies Seasonal Allergies: No Past Medical History Surgeries: Yes (CARPAL TUNNEL, OPEN HEART-4 VESSEL CABG 07/30/18) Abdominal, Cardiac, CABG, Hysterectomy, Oophorectomy, Open Heart Surgery, Orthopedic, Vascular Surgery Respiratory: Yes Asthma, Pneumonia, COPD Currently Using CPAP: No Currently Using BIPAP: No Cardiac: Yes (ND 07/2018 WITH 4 VESSEL CABG 07/30/18) Coronary Artery Disease, Heart Attack, High Cholesterol, Hypertension Neurological: No Female 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 Disorders: Denies 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 Genitourinary: No Gastrointestinal: No Musculoskeletal: Yes (PSORIATIC ARTHRITIS) Degenerate Disk Disease, Arthritis, Chronic Back Pain Endocrine: No HEENT: Yes (EDENTULOUS, R mastoid bone removed) Cancer: No Psychosocial: No Integumentary: Yes (POST OP WOUND INFECTION TO LEGS POST CABG) Psoriasis Blood Disorders: Yes (POST OP ANEMIA 07/2018--4 UNITS OF BLOOD POST OP) Adverse Reaction/Blood Tranf: No Family Medical History No Pertinent Family Hx Physical Exam Vital Signs Vital Signs - First Documented 12/02/18 20:01 Temp 98.7 Pulse 86 Resp 20 B/P (MAP) 146/63 (90) Pulse Ox 100 O2 Delivery Room Air Capillary Refill : Height, Weight, BMI Height: 5'3.00" Weight: 109lbs. 0.0oz. 49.107499mu; 24.9 BMI Method:Stated General Appearance: No Apparent Distress, WD/WN HEENT: PERRL/EOMI, TMs Normal Neck: Full Range of Motion, Normal Inspection Cardiovascular: Other (PEG tube left upper quadrant without any gauze around the insertion site, small amount of gastric contents leaking skin which are a bit macerated but without induration or cellulitis or fluctuant abscess. Gauze was placed between the skin and the stopper on the PEG tube.) Extremity: Normal Capillary Refill, Other (2+ pitting edema bilateral lower extremities) Neurologic/Psychiatric: Alert, Oriented x3 Skin: Normal Color, Warm/Dry Procedures/Interventions Date of ETT Placement: Oct 17, 2018 Time of ETT Placement: 1441 Progress/Results/Core Measures Suspected Sepsis SIRS Temperature: Pulse: Respiratory Rate: Laboratory Tests 12/02/18 20:28: White Blood Count 10.3 Blood Pressure / Mean: Laboratory Tests 12/02/18 20:28: Creatinine 0.59L, Platelet Count 318 Results/Orders Lab Results Laboratory Tests Test 12/02/18 20:28 Range/Units White Blood Count 10.3 4.3-11.0 10^3/uL Red Blood Count 3.09 L 4.35-5.85 10^6/uL Hemoglobin 9.2 L 11.5-16.0 G/DL Hematocrit 28 L 35-52 % Mean Corpuscular Volume 91 80-99 FL Mean Corpuscular Hemoglobin 30 25-34 PG Mean Corpuscular Hemoglobin Concent 33 32-36 G/DL Red Cell Distribution Width 13.3 10.0-14.5 % Platelet Count 318 130-400 10^3/uL Mean Platelet Volume 8.9 7.4-10.4 FL Neutrophils (%) (Auto) 47 42-75 % Lymphocytes (%) (Auto) 35 12-44 % Monocytes (%) (Auto) 11 0-12 % Eosinophils (%) (Auto) 7 0-10 % Basophils (%) (Auto) 1 0-10 % Neutrophils # (Auto) 4.9 1.8-7.8 X 10^3 Lymphocytes # (Auto) 3.6 1.0-4.0 X 10^3 Monocytes # (Auto) 1.1 H 0.0-1.0 X 10^3 Eosinophils # (Auto) 0.7 H 0.0-0.3 10^3/uL Basophils # (Auto) 0.1 0.0-0.1 10^3/uL Sodium Level 141 135-145 MMOL/L Potassium Level 3.1 L 3.6-5.0 MMOL/L Chloride Level 111 H 98-107 MMOL/L Carbon Dioxide Level 17 L 21-32 MMOL/L Anion Gap 13 5-14 MMOL/L Blood Urea Nitrogen 3 L 7-18 MG/DL Creatinine 0.59 L 0.60-1.30 MG/DL Estimat Glomerular Filtration Rate > 60 BUN/Creatinine Ratio 5 Glucose Level 110 H 70-105 MG/DL Calcium Level 8.9 8.5-10.1 MG/DL Magnesium Level 1.5 L 1.8-2.4 MG/DL My Orders Orders - JASON ROLON APRN Cbc With Automated Diff (12/02/18 20:09) Basic Metabolic Panel (12/02/18 20:09) BNP (12/02/18 20:09) Magnesium (12/02/18 20:09) Magnesium Oxide Tablet (Mag Ox Tablet) (12/02/18 21:15) Potassium Chloride (Tablet) (Klor Con Ta (12/02/18 21:15) Vital Signs/I&O 12/02/18 20:01 Temp 98.7 Pulse 86 Resp 20 B/P (MAP) 146/63 (90) Pulse Ox 100 O2 Delivery Room Air Capillary Refill : Departure Impression Primary Impression: Skin irritation Additional Impressions: Pedal edema Hypokalemia Hypomagnesemia Disposition: HOME, SELF-CARE Condition: Stable Departure-Patient Inst. Decision time for Depature: 21:05 Referrals: NO,LOCAL PHYSICIAN (PCP/Family) Primary Care Physician Patient Instructions: Hypokalemia (DC) Add. Discharge Instructions: 1. Meds as directed 2. Reiturn to ER for any concerns 3. Elevate her legs as much as possible. Go to [facility] tomorrow to be seen and fill your prescriptions as they can oftentimes help fill prescriptions when you are financially unable to do so. All discharge instructions reviewed with patient and/or family. Voiced understanding. Scripts Potassium Chloride (Potassium Chloride) 20 Meq Tablet.er 20 MEQ PO DAILY, #10 TAB Prov: JASON ROLON APRN 12/02/18 Magnesium Oxide (Magnesium Oxide) 400 Mg Tablet 400 MG PO BID, #10 TAB Prov: JASON ROLON APRN 12/02/18 Copy Copies To 1: KAYLEE CARRILLO PETER J APRN Dec 02, 2018 20:12
--- OUTSIDE RECORDS SUMMARY | 2018-12-02 20:13 | XMS REPORT | Encounter Summary ---
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 Truck Driver Name Role Phone Tamia Fonseca MD PCP Reason for Visit * Auth/Cert Referred By Contact Referred To Contact Status Reason Specialty Diagnoses / Procedures Diagnoses Pneumocephalus altered mental status Encounter Details Care Team Description Date Type Department Jose Whalen SRNA 10/29/2018 Anesthesia [facility] [place] [facility] [place] [address] Anesthesia Record Responsible Anesthesiologist Anesthesia Start Time Anesthesia Stop Time Procedure Name Kayla Vilchis MD 10/29/18 1417 10/29/18 1647 MASTOIDECTOMY - SIMPLE, TYMPANOPLASTY (Right Head) Date Time Event Comment 1199 1313 AN Equip Check 1416 In Room 1417 Anes Start 1417 An Start Data 1429 An Induction The patient was reevaluated immediately before moderate or deep sedation use and before anesthesia induction. 1429 Anesthesia Ready 1444 Proc Start 1638 Quick Note To ICU with portable vent, portable monitor and 02. MAMMOGRAPHER and Dr Vilchis. 1639 an stop data 1647 Handoff to RN I completed my SBAR handoff to the receiving nurse. 1647 An Stop Meds Name Total fentaNYL PF (SUBLIMAZE) injection 100 mcg propofol (DIPRIVAN) 200 mg/ 20 mL 280 mg injection (VIAL) phenylephrine (DAVID-SYNEPHRINE) 0.1 mg/mL 350 mcg injection (SYRINGE) dextran 70/hypromellose (GENTEAL TEARS; 2 drop BION TEARS) ophthalmic solution ePHEDrine injection 10 mg propofol (DIPRIVAN) infusion 899.28 mg remifentanil (ULTIVA) 1 mg/3 mL 1,000 782.44 mcg mcg in sodium chloride 0.9% (NS) 20 mL Injection lactated ringers infusion (1000 mL bag) 800 mL * Name O2 N2O Inspired Sevoflurane Inspired Sevoflurane * No blood administrations on file. Removal Type Details Placement Wounds 10/19/18; 2330; Left; Leg; Surgical 10/19/18 2330 by (NOT for Incision; Dehiscence from prior surgery [facility] Pressure Injuries) Pressure 10/24/18; 0800; N; Sacrum; Stage 3 10/24/18 0800 by Alexander Goodson, MARI Tracheosto 10/29/18; 1616; 6.0; Cuffed, Shiley 10/29/18 1616 by pete Monk RN 10/30/18 1503 by Magali Patel, MARI Indwelling Present on Admission; Regular (Two-way); 10/19/18 2323 by Urinary 10/30/18; 1503 Catheter 10/31/18 1500 by Enio Langley, MARI CVC Triple PreHospital EMS/Emergent; Internal 10/19/18 2324 by Lumen Jugular, Right; 10/31/18; 1500; Y 10/31/18 0000 by Abbie Cleaning RN Wounds 10/19/18; 2330; Right; Leg; Surgical 10/19/18 2330 by (NOT for Incision; 10/31/18; Dehiscence from [facility] Pressure prior surgery Injuries) 11/01/18 1800 by Radha Hu, MARI Nasoduoden 10/23/18; 2100; Nose; Yes; Nursing; 10/23/18 2100 by al Tube Auscultation, X-ray; 1; 1; 11/01/18; Tereza Bradford RN 1800 documented in this encounter Social History Date Tobacco Use Types Packs/Day [...] history available. documented as of this encounter OR Notes * Anesthesia Postprocedure Evaluation - Kayla Vilchis MD - 10/29/2018 4: 51 PM CDT Post-Anesthesia Evaluation Name: Rocío Mora : 1960 Age: 58 y.o. Sex : female Procedure Date: 10/29/2018 Procedure: Procedure(s) with comments: MASTOIDECTOMY - SIMPLE, TYMPANOPLASTY - CASE LENGTH 2 HOURS TRACHEOSTOMY PLANNED Surgeon: Surgeon(s): Sarath Paris MD Wich[place], Helena, MD Post-Anesthesia Vitals Temp 37.2 HR115 BP 128/78 02 96 Post Anesthesia Evaluation Note Evaluation location: ICU Patient participation: recovered; patient unable to participate at baseline Level of consciousness: alert and sleepy but conscious Pain management: adequate Hydration: normovolemia Temperature: 36.0C - 38.4C Airway patency: adequate Perioperative Events Perioperative events: no Post-op nausea and vomiting: no PONV Postoperative Status Cardiovascular status: hemodynamically stable Respiratory status: CPAP/BiPAP (Trach #[id number]) Follow-up needed: none Perioperative Events ATTESTATION Post-Anesthesia Evaluation and ICU Transfer Note Attestation: I evaluated the patient and the indicated post-anesthesia care is discharge and transfer to the ICU physician-lead team. Staff name: Kayla Vilchis MD Date: 10/29/2018 * Anesthesia Preprocedure Evaluation - Cierra Moy CRNA - 10/29/2018 3:28 PM CDT Anesthesia Pre-Procedure Evaluation Name: Rocío Mora : 1960 Age: 58 y.o. Sex : female Procedure Date: 10/29/2018 Procedure: Procedure(s) with comments: MASTOIDECTOMY - SIMPLE, TYMPANOPLASTY - CASE LENGTH 2 HOURS Physical Assessment Vital Signs (last filed in past 24 hours): BP: 107/55 (10/29 1313) Temp: 36.9 C (98.5 F) (10/29 1313) Pulse: 61 (10/29 1345) Respirations: 23 PER MINUTE (10/29 1345) SpO2: 99 % (10/29 1345) O2 Delivery: Endotracheal Tube (Oral) (10/29 1313) Weight: 51.7 kg (113 lb 15.7 oz) (10/29 0500) Patient History No Known Allergies Current Medications Medication Directions acetic acid 0.25 % irrigation solution by Irrigation route daily. amiodarone (CORDARONE) 200 mg tablet Take 200 [...] Take 20 mg by mouth every morning. gabapentin (NEURONTIN) 800 mg tablet Take 800 mg by mouth four times daily. HYDROcodone/acetaminophen (NORCO) 5/325 mg tablet Take 1 [...] directed every 24 hours. Rotate patch location. ondansetron (ZOFRAN) 4 mg tablet Take 8 mg by mouth twice daily as needed for Nausea or Vomiting. oxyCODONE/acetaminophen (PERCOCET; ENDOCET; ROXICET) 5/325 mg tablet [...] 50 mg by mouth at bedtime daily. varenicline (CHANTIX CONTINUING MONTH BOX) 1 mg tablet Take 1 mg by mouth twice daily. Take with 8 oz of water and after a meal. Review of Systems/Medical History PONV Screening: Female gender Airway History of head/neck radiation Intubated Pulmonary Current smoker; patient did not smoke on day of surgery Asthma COPD, moderate Pneumonia (Resp failure, currently intubated) Cardiovascular Recent diagnostic studies: echocardiogram 1. There is a small echogenic mass [...] This study was read in conjunction with basket filler, Dr. Don Dominguez. I have personally reviewed the study and co-formulated the interpretation expressed in this report. Exercise tolerance: unknown Hypertension, Coronary artery disease Hyperlipidemia Neuro/Psych Psychiatric history Depression Musculoskeletal Arthritis Physical Exam Airway Findings Pre-existing airway: ETT Dental Findings: Cardiovascular Findings: Rhythm: regular Rate: normal Pulmonary Findings: Negative Neurological Findings: Comments: Intubated and awake, [place]ISON Diagnostic Tests Hematology: Lab Results Component Value Date HGB 7.5 10/29/2018 HCT 23.0 10/29/2018 PLTCT 480 10/29/2018 WBC 11.7 10/29/2018 NEUT 67 10/29/2018 ANC 7.90 10/29/2018 ALC 2.40 10/29/2018 PETERSON 10 10/29/2018 AMC 1.20 10/29/2018 EOSA 2 10/29/2018 ABC 0.10 10/29/2018 MCV 94.2 10/29/2018 MCH 30.9 10/29/2018 MCHC 32.8 10/29/2018 MPV 10.3 10/29/2018 RDW 13.5 10/29/2018 General Chemistry: Lab Results Component Value Date NA 138 10/29/2018 K 4.4 10/29/2018 CL 107 10/29/2018 CO2 25 10/29/2018 GAP 6 10/29/2018 BUN 14 10/29/2018 CR 0.40 10/29/2018 GLU 131 10/29/2018 CA 9.8 10/29/2018 ALBUMIN 2.8 10/27/2018 LACTIC 0.9 10/19/2018 OBSCA 1.22 10/29/2018 MG 2.3 10/29/2018 TOTBILI 0.2 10/27/2018 PO4 4.8 10/29/2018 Coagulation: Lab Results Component Value Date INR 1.0 10/19/2018 Anesthesia Plan ASA score: 4 Plan: general Induction method: intravenous NPO status: acceptable Informed Consent Anesthetic plan and risks discussed with spouse. Use of blood products discussed with spouse Blood Consent: consented Plan discussed with: anesthesiologist. * Anesthesia Preprocedure Evaluation - Kayla Vilchis MD - 10/29/2018 1: 33 PM CDT Anesthesia Pre-Procedure Evaluation Name: Rocío Mora : 1960 Age: 58 y.o. Sex : female Procedure Date: 10/29/2018 Procedure: Procedure(s) with comments: MASTOIDECTOMY - SIMPLE, TYMPANOPLASTY - CASE LENGTH 2 HOURS Physical Assessment Vital Signs (last filed in past 24 hours): BP: 107/55 (10/29 1313) Temp: 36.9 C (98.5 F) (10/29 1313) Pulse: 59 (10/29 131) Respirations: 20 PER MINUTE (10/29 131) SpO2: 99 % (10/29 131) O2 Delivery: Endotracheal Tube (Oral) (10/29 131) Weight: 51.7 kg (113 lb 15.7 oz) (10/29 0500) Patient History No Known Allergies Current Medications Medication Directions acetic acid 0.25 % irrigation solution by Irrigation route daily. amiodarone (CORDARONE) 200 mg tablet Take 200 [...] Take 20 mg by mouth every morning. gabapentin (NEURONTIN) 800 mg tablet Take 800 mg by mouth four times daily. HYDROcodone/acetaminophen (NORCO) 5/325 mg tablet Take 1 [...] directed every 24 hours. Rotate patch location. ondansetron (ZOFRAN) 4 mg tablet Take 8 mg by mouth twice daily as needed for Nausea or Vomiting. oxyCODONE/acetaminophen (PERCOCET; ENDOCET; ROXICET) 5/325 mg tablet [...] 50 mg by mouth at bedtime daily. varenicline (CHANTIX CONTINUING MONTH BOX) 1 mg tablet Take 1 mg by mouth twice daily. Take with 8 oz of water and after a meal. Review of Systems/Medical History Patient summary reviewed Nursing notes reviewed Pertinent labs reviewed PONV Screening: Female gender Pulmonary Asthma COPD Pneumonia Recent URI intubated pneumonia; Cardiovascular Exercise tolerance: <4 METS Hypertension, Coronary artery disease Coronary artery bypass graft (less than 4 months ago with post op debilitation and poor wound healing with aggressive infections) Dysrhythmias; atrial fibrillation GI/Hepatic/Renal Renal disease: ARF and CRI Neuro/Psych Weakness Psychiatric history Depression Musculoskeletal Arthritis Physical Exam Airway Findings Pre-existing airway: ETT Comments: need for trach for failure to wean. Cardiovascular Findings: Comments: paroxysmal afib; possible vegetation on valve. Diagnostic Tests Hematology: Lab Results Component Value Date HGB 7.5 10/29/2018 HCT 23.0 10/29/2018 PLTCT 480 10/29/2018 WBC 11.7 10/29/2018 NEUT 67 10/29/2018 ANC 7.90 10/29/2018 ALC 2.40 10/29/2018 PETERSON 10 10/29/2018 AMC 1.20 10/29/2018 EOSA 2 10/29/2018 ABC 0.10 10/29/2018 MCV 94.2 10/29/2018 MCH 30.9 10/29/2018 MCHC 32.8 10/29/2018 MPV 10.3 10/29/2018 RDW 13.5 10/29/2018 General Chemistry: Lab Results Component Value Date NA 138 10/29/2018 K 4.4 10/29/2018 CL 107 10/29/2018 CO2 25 10/29/2018 GAP 6 10/29/2018 BUN 14 10/29/2018 CR 0.40 10/29/2018 GLU 131 10/29/2018 CA 9.8 10/29/2018 ALBUMIN 2.8 10/27/2018 LACTIC 0.9 10/19/2018 OBSCA 1.22 10/29/2018 MG 2.3 10/29/2018 TOTBILI 0.2 10/27/2018 PO4 4.8 10/29/2018 Coagulation: Lab Results Component Value Date INR 1.0 10/19/2018 Anesthesia Plan ASA score: 4 emergent Plan: general Informed Consent Anesthetic plan and risks discussed with spouse. Use of blood products discussed with spouse (hg low; ) Blood Consent: consented Plan discussed with: anesthesiologist and MAMMOGRAPHER. documented in this encounter Plan of Treatment Not on filedocumented as of this encounter Visit Diagnoses Not on filedocumented in this encounter Administered Medications Action Date Dose Rate Site Medication Order MAR Action 10/29/2018 2:31 PM CDT 2 drops dextran 70/hypromellose (GENTEAL TEARS; Given BION TEARS) ophthalmic solution INTRA-PROCEDURE MED, Starting 10/29/18 at 1431, Until 10/29/18 at 1653, Anesthesia Intra-op 10/29/2018 2:43 PM CDT 10 mg ePHEDrine injection Given INTRA-PROCEDURE MED, Starting 10/29/18 at 1443, Until 10/29/18 at 1653, Anesthesia Intra-op 10/29/2018 2:47 PM CDT 50 mcg fentaNYL citrate PF (SUBLIMAZE) Given injection INTRA-PROCEDURE MED, Starting 10/29/18 at 1437, Until 10/29/18 at 1653, Anesthesia Intra-op 50 mcg Given 10/29/2018 2:37 PM CDT 10/29/2018 2:17 PM CDT lactated ringers infusion Given - New INTRA-PROCEDURE MED(CONT), Starting Mon Bag 10/29/18 at 1247, Until Mon10/29/18 at 1653, Anesthesia Intra-op Given - New Bag 10/29/2018 12:47 PM CDT 10/29/2018 4:24 PM CDT 100 mcg phenylephrine in NS injection syringe Given Intravenous, INTRA-PROCEDURE MED, Starting 10/29/18 at 1546, Until Mon10/29/18 at 1653, Anesthesia Intra-op 100 mcg Given 10/29/2018 3:46 PM CDT 100 mcg Given 10/29/2018 3:28 PM CDT 10/29/2018 4:12 PM CDT 30,000 mcg propofol (DIPRIVAN) infusion Bolus 100 mL, INTRA-PROCEDURE MED(CONT), Starting Mon10/29/18 at 1427, Until Mon10/29/18 at 1653, Anesthesia Intra-op 30,000 mcg Bolus 10/29/2018 4:08 PM CDT 40,000 mcg Bolus 10/29/2018 4:00 PM CDT 10/29/2018 4:05 PM CDT 80 mg propofol (DIPRIVAN) injection Given INTRA-PROCEDURE MED, Starting Mon10/29/18 at 1448, Until Mon10/29/18 at 1653, Anesthesia Intra-op 50 mg Given 10/29/2018 2:48 PM CDT 150 mg Given 10/29/2018 2:29 PM CDT 10/29/2018 4:07 PM CDT 50 mcg remifentanil (ULTIVA) 1 mg/3 mL 1,000 Bolus mcg in sodium chloride 0.9% (NS) 20 mL Injection INTRA-PROCEDURE MED(CONT), Starting Mon10/29/18 at 1456, Until Mon10/29/18 at 1653, Anesthesia Intra-op 25 mcg Bolus 10/29/2018 3:05 PM CDT 0.1 mcg/kg/min 6.2 mL/hr Dose/Rate Change 10/29/2018 3:04 PM CDT documented in this encounter
--- OUTSIDE RECORDS SUMMARY | 2018-12-02 20:13 | XMS REPORT | Encounter Summary ---
Author Author [facility] Organization [facility] Address Unknown Phone Unavailable Care Team Providers Care Print Shop Chief Clerk Name Role Phone Akbar Fonseca MD PCP Reason for Visit * Auth/Cert Referred By Contact Referred To Contact Status Reason Specialty Diagnoses / Procedures Diagnoses Pneumocephalus altered mental status Encounter Details Care Team Description Date Type Department Duy Burch MD [address] [facility] [address] [address] [phone] MASTOIDECTOMY - SIMPLE, TYMPANOPLASTY 10/29/2018 Surgery [facility] [place] [facility] [place] [address] Social History Date Tobacco Use Types Packs/Day [...] (115 lb 1.3 oz) 10/20/2018 10:10 AM CURTAIN DRIER Height 162.6 cm (5' 4") 10/23/2018 3:51 [...] atrial fibrillation (HCC) Pneumothorax tripped over a Biscotti toy, had a pneumothorax, had lung surgery in hospital at [facility] Restless leg syndrome Allergies: Patient has no [...] complicated PMHx including CAD s/p CABG in [place] in July 2018 with a post-op course [...] possible infection, so she was transferred to [facility] for further care. MRI without abscess NSG [...] then became hypotensive. Metoprolol and lasix stopped 2/2 hypotension 10/28, fluid bolus given. 10/29 ENT [...] ENT, ID, Neurosurgery, Wound Team Patient Disposition: Detention Care Facility Patient instructions/medications: Orders/Medications for Discharges [...] concerns. Return Appointment For Neurology scheduling contact [phone] For Neurosurgery appointments call [phone] Questions About Your Stay For questions or concerns regarding your hospital stay: -DURING BUSINESS HOURS (8:00 AM - 4:30 PM): Call [phone] and ask to be transferred to your discharge attending physician. -AFTER BUSINESS HOURS (4:30 PM - 8:00 AM, on weekends, or holidays): Call [phone] and ask the steeping press operator to page the on-call doctor for the discharge attending physician. Discharging attending physician: JUDY SANTORO [[id number]] Tube Feeding Formula: Isosource 1.5 Schedule: Continuous [...] discharge Pending items needing follow up: Resume SUPERVISOR [employer] DEPOSIT Lasix at [facility]. Continue cefepime until 11/05 then continue a [...] reconstruction with Plastic Surgery assist Signed: Mica Javed, SEMAJ 11/03/2018 cc: Primary Care Physician: Akbar Fonseca Verified Referring physicians: Radha Nance MD documented in this encounter Discharge Instructions * Patient Instructions* Oziel Salvador RN - 11/01/2018 5:03 PM CDT INTERVENTIONAL RADIOLOGY [...] or concerns related to the procedure, call [phone] for Monday-Monday 7-5. After-hours and weekends, please call [phone] and ask for the Interventional It Support Specialist on-call. * Appointments* Mica Javed APRN - [...] to see how she does. Suspect acute encephalopathy/delirium/ may also play a role in vent weaning difficulties as pt had another episode of tachycardia and "panic" on Monday evening that became worse with ativan. Ordered 1mg risperdal and melatonin to be adminstered Wed night which seemed to be beneficial - no episodes of panic noted and she reportedly slept well - continue. Ativan has been taken off the OCT. Precedex is also off the MAR - while it works well for her [...] a day or so). Ok to resume SU[employer]POSIT lasix dose tomorrow. Dispo: This patient is [...] acetaminophen Q4H PRN, calcium gluconate IV PRN (Auto Slip Cover Installer from Rx) AND Ionized Calcium PRN AND Notify Physician Ongoing, fentaNYL citrate PF Q1H PRN, ipratropium/albuterol Q4H PRN, magnesium sulfate PRN AND [CANCELED] Magnesium PRN AND Notify Physician Ongoing, oxyCODONE Q4H PRN, pancrelipase 20,000 Units/ sodium bicarbonate 650 mg (#) PRN (Auto Slip Cover Installer from Rx), potassium chloride SR PRN OR potassium chloride PRN Vital Signs: Last Filed Vital Signs: 24 Hour Range BP: 127/94 (11/03 1000) Temp: 37.1 C (98.8 F) (11/03 0800) Pulse: 113 (11/03 0900) Respirations: 22 PER MINUTE (11/03 899) SpO2: 100 % (11/03 899) O2 Delivery: Tracheal Tube (11/03 07) Weight: 52.2 kg (115 lb 1.3 oz) [...] radiology reviewed. Julia Santoro MD 11/03/2018 Pager: [phone] * Mica Javed APRN - 11/03/2018 7:30 AM CDT Neuro Critical [...] intraparenchymal air and surrounding edema. Transferred to [facility] for escalation of care. Hospital and ICU course: 10/19: Transferred from OSH to NEICU 10/23: LP 10/26: DC amiodarone. Start spironolactone [...] Encephalopathy Meningitis Right temporal lobe abscess Depression -[id number] -PT/OT -Sertraline HS Sedation/Pain Management: Delirium -PRN [...] 160 -MAP goal > 65 - holding [employer]IT lisinopril - Resuming metoprolol- Will drop dose to 37.5 09/15 soft BP - continuePTA atrovastatin and ASA - diuresed 11/01 - Resume SU[employer] DEPOSIT Lasix at LTACH Respiratory: Acute hypoxic and hypercapneic respiratory failure on mechanical ventilation S/p Trach placement 10/29 per ENT Chest Xray 10/31:Progressing mixed opacities most apparent in the left perihilar region and left midlung. Persistent cardiomegaly with vascular congestion and small bilateral pleural effusions. - Currently on PS 12/16- will continue with PS open ended -[employer]POSIT budesonide - trach to be changed per ENT 11/02 GI: -Feeding: NPO, Isosource 1.5 @ 50 ml/hr with free water 150 ml every 6 hours -Bowel regimen, ensure daily BM(last BM 11/03) - Resend CDiff -Famotidine BID Heme: Thrombocytosis- 2/ acute illness Normocytic Anemia s/p 1 unit [...] Potassium goal >4.0 mEq/L Prophylaxis Review: A)GI: [id number] B) Lines:Yes; Central Line; Indication: Frequent blood [...] (11/03 699) Temp: 37.2 C (98.9 F) (11/04 399) Pulse: 93 (11/03 699) Respirations: 20 PER [...] (not recorded) Vitals: 10/29/18 0500 10/30/18 0400 11/03/18529 Weight: 51.7 kg (113 lb 15.7 oz) [...] (115 lb 1.3 oz), SpO2 100 %. Daily coma score: [...] procedures reviewed. Mica Javed APRN Date: 11/03/[phone] Mrs. Alonso is in stable condition with: R temporal lobe abscess, encephalopathy, bacteremia, HCAP, HTN, CAD, respiratory failure.Cares included: detailed neurologic and systems exam, medication review, laboratory data review and interpretation, electrolyte management, review of available imaging, DVT/PE prophylaxis review, diet review, activity review, mechanical ventilation and sedation management, and coordination of care with consulted teams * Radha Hu RN - 11/02/2018 5:30 PM CDT Pt received [...] intraparenchymal air and surrounding edema. Transferred to [facility] for escalation of care. Pt intubated via [...] Throughout Stay Status: Partially met;Ongoing Sudha Madera Data Migration Consultant *[id number] Associated attestation - Joy Spencer - 11/02/2018 3:09 PM CDT Discussed case with intelligence intern & concur with intelligence intern's documentation of assessment, interventions and goals. Erika Spencer RD, LD Pager: [phone] * Elenita Butler OT - 11/02/2018 1:16 PM CDT OCCUPATIONAL THERAPY PROGRESS NOTE Patient Name: Etelvina Alonso Room/Bed: [place] [address] Admitting Diagnosis: altered mental status Mobility Progressive Mobility Level: Active transfer to chair Distance Walked (feet): (3 ft sidestep, then pivot) Level of Assistance: Assist X2 Activity Limited By: Lines / Medical Devices Subjective Pertinent Dx per Physician: HTN, HLD, no nhealing leg wounds, CAD s/p CABG in in [place] who presented to an OSH on 10/16 [...] person for line management) Activity Tolerance Endurance: 3/5 Tolerates 25-30 Minutes [...] intraparenchymal air and surrounding edema. Transferred to [facility] for escalation of care. Flail sternum and [...] Location of Endotracheal tube (ETT) at the [facility] CPAP 40 5 5 Pre Activity:99 During [...] level of rehabilitation placement Therapist: Louise Hennessy, MARSHA Date: 11/02/2018 * Judy Santoro MD - [...] try for continuous PSV today. Suspect acute encephalopathy/delirium/ing may also [...] gentle diuresis tomorrow. Remainder of plan per LOOM REPAIRER's note. Dispo: This patient is critically ill [...] acetaminophen Q4H PRN, calcium gluconate IV PRN (Auto Slip Cover Installer from Rx) AND Ionized Calcium PRN AND Notify Physician Ongoing, fentaNYL citrate PF Q1H PRN, ipratropium/albuterol Q4H PRN, magnesium sulfate PRN AND [CANCELED] Magnesium PRN AND Notify Physician Ongoing, oxyCODONE Q4H PRN, pancrelipase 20,000 Units/ sodium bicarbonate 650 mg (#) PRN (Auto Slip Cover Installer from Rx), potassium chloride SR PRN OR potassium chloride PRN Vital Signs: Last Filed Vital Signs: 24 Hour Range BP: 114/60 (11/02 899) Temp: 37.2 C (99 F) (11/03 0700) Pulse: 106 (11/02 899) Respirations: 20 PER [...] radiology reviewed. Julia Santoro MD 11/02/2018 Pager: [phone] * Kiara Herman, LOOM REPAIRER - 11/02/2018 8:45 AM CDT Interventional Radiology [...] sponge dressing if desired. Please notify IR EDGING CATCHER for excessive bleeding/redness/drainage noted from insertion site [...] please page IR resident on -call at [phone] Problem List: Active Problems: Pneumonia due to [...] acetaminophen Q4H PRN, calcium gluconate IV PRN (Auto Slip Cover Installer from Rx) AND Ionized Calcium PRN AND Notify Physician Ongoing, fentaNYL citrate PF Q1H PRN, ipratropium/albuterol Q4H PRN, magnesium sulfate PRN AND [CANCELED] Magnesium PRN AND Notify Physician Ongoing, oxyCODONE Q4H PRN, pancrelipase 20,000 Units/ sodium bicarbonate 650 mg (#) PRN (Auto Slip Cover Installer from Rx), potassium chloride SR PRN OR potassium chloride PRN Vital Signs: Last Filed Vital Signs: 24 Hour Range BP: 128/102 (11/02 699) Temp: 37.2 C (99 F) (11/02 0400) Pulse: 114 (11/02 837) Respirations: 22 PER [...] - 4.5 MG/DL Kiara Herman APRN Pager [phone] * Mica Javed APRN - 11/02/2018 7:08 [...] intraparenchymal air and surrounding edema. Transferred to [facility] for escalation of care. Hospital and ICU course: 10/19: Transferred from OSH to MIICU 10/23: LP 10/26: DC amiodarone. Start spironolactone [...] Meningitis Right temporal lobe abscess Depression - [id number] - PT/OT - Sertraline HS Sedation/Pain Management: [...] - MAP goal > 65 - holding [employer]IT lisinopril - Resuming metoprolol- Tolerated 50mg this AM- will leave at this dose, continue to eval - continue [employer]IT atrovastatin and ASA - diuresed 11/01 Respiratory: Acute hypoxic and hypercapneic respiratory failure on mechanical ventilation S/p Trach placement 10/29 per ENT Chest Xray 10/31:Progressing mixed opacities most apparent in the left perihilar region and left midlung. Persistent cardiomegaly with vascular congestion and small bilateral pleural effusions. - Currently on PS 12/16- will continue with PS open ended - [employer]POSIT budesonide - trach to be changed per [...] Potassium goal >4.0 mEq/L Prophylaxis Review: A)GI: [id number] B) Lines:Yes; Central Line; Indication: Frequent blood [...] (11/02 699) Temp: 37.2 C (99 F) (11/03 399) Pulse: 134 (11/02 699) Respirations: 26 PER [...] procedures reviewed. Mica Javed APRN Date: 11/02/[phone] I spent 45 minutes managing the care [...] wound infection as below -10/16 presented to [facility] with a few days of fever, cough [...] regurgitation. Concern for bilateral LE wound infection, [facility] Bilateral vein harvest sites on lower extremities from CABG in [facility], 07/2018 Multiple cultures in [facility]. 09/07/18- Culture from R leg incision - [...] growing Pseudomonas that shows resistance to meropenem. 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 Will tentatively plan for 2 weeks (from 10/23) of cefepime to treat both the LE wound infections and Strep pneumo bacteremia and suspected ELECTRONIC VIDEO GAMES SERVICER abscess. Tentative last day of cefepime would be 11/05. -After cefepime she should be transitioned to ceftriaxone 2 g IV BID for meningitis. This would continue until at least 11/12 (4 weeks from 10/16). -Monitor for abx side effects -If on DC pt transfers to LTACH, their ID physicians will take over ID care. Benny Sepulveda MD Plant Culture Manager Division of Infectious Diseases Dr. Benjamin will round on Monday if she remains inpt. For any questions over the weekend please page the ID fellow process controller at [phone] Interval History Etelvina Alonso is a 58 y.o. female with a PMH significant for CABG (07/2018) who presented to [facility] in [facility] on 10/16/18 after noting worsening cough and sternal pain from recent sternotomy and non-healing LE graft sites. Transferred to [facility] on 10/19/18 for right temporal lobe intraparenchymal air and edema seen on CTA. Feels good, pain and anxiety well controlled. No n/v. No f/c/diaphoresis. Afebrile, PEG placement yesterday. WBC slightly up to 11.4 Cr 0.47, stable. ROS As mentioned in 'Interval History' otherwise 10-point ROS negative Antimicrobial Start date End date Cefepime 10/16/18-10/18/18, 10/23 active Ceftriaxone 10/18/18 10/20/18 Cefedinir 09/23/18 [employer]POSIT, uncertain timeframe Doxycycline 100 mg PO BID 09/06/18 [employer]POSIT, uncertain timeframe [id number] mg PO BID 08/23/18 [employer]POSIT, uncertain timeframe Fluconazole 150 mg PO QD 08/17/18 [employer]POSIT, uncertain timeframe Vancomycin 10/20/1810/24 Ampicillin 10/20/18 10/20/18 Fluconazole 10/20/18 10/26/18 Oseltamivir 10/21/1810/30 Meropenem 10/20/1810/23 Bactrim 08/17/18 [employer]POSIT, uncertain timeframe Estimated Creatinine Clearance: 72.1 mL/min [...] acetaminophen Q4H PRN, calcium gluconate IV PRN (Auto Slip Cover Installer from Rx) AND Ionized Calcium PRN AND Notify Physician Ongoing, fentaNYL citrate PF Q1H PRN, ipratropium/albuterol Q4H PRN, magnesium sulfate PRN AND [CANCELED] Magnesium PRN AND Notify Physician Ongoing, oxyCODONE Q4H PRN, pancrelipase 20,000 Units/ sodium bicarbonate 650 mg (#) PRN (Auto Slip Cover Installer from Rx), potassium chloride SR PRN OR potassium chloride PRN Physical Examination Vital Signs: Last Vital Signs: 24 Hour Range BP: 128/102 (11/02 699) Temp: 37.2 C (99 F) (11/020) Pulse: 134 (11/02 699) Respirations: 26 PER [...] (11/02 599) Temp: 37.2 C (99 F) (11/03 399) Pulse: 113 (11/02 608) Respirations: 23 PER MINUTE (11/02 608) SpO2: 99 % (11/02 608) O2 Delivery: Tracheal Tube (11/02 699) SpO2 Pulse: 123 (11/02 599) BP: (109-153)/(53-100) [...] Acute respiratory failure with hypoxia and hypercapnia ([facility]) 10/19/2018 Assessment/Plan: Etelvina Alonso is a 58 [...] or concerns. Juvenal Gottlieb MD Otolaryngology Resident, [phone] * Mayda Demarco RN - 11/01/2018 5:03 [...] plan for today. Remainder of plan per LOOM REPAIRER's note. Dispo: This patient is critically ill [...] Meds:acetaminophen Q4H PRN, calcium gluconate IV PRN (Auto Slip Cover Installer from Rx) AND Ionized Calcium PRN AND Notify Physician Ongoing, fentaNYL citrate PF Q1H PRN, ipratropium/albuterol Q4H PRN, magnesium sulfate PRN AND [CANCELED] Magnesium PRN AND Notify Physician Ongoing, oxyCODONE Q4H PRN, pancrelipase 20,000 Units/ sodium bicarbonate 650 mg(#) PRN ( Auto Slip Cover Installer from Rx), potassium chloride SR PRN OR potassium chloride PRN Vital Signs: Last Filed Vital Signs: 24 Hour Range BP: 117/74 (11/01 1200) Temp: 37.2 C (99 F) (11/01 1200) Pulse: 117 (11/01 1200) Respirations: 17 PER MINUTE (11/01 1200) SpO2: 98 % (11/01 1200) O2 Delivery: Tracheal Tube (11/01 0700) BP: [...] radiology reviewed. Julia Santoro MD 11/01/2018 Pager: [phone] * Elenita Butler OT - 11/01/2018 11:22 AM CDT OCCUPATIONAL THERAPY PROGRESS NOTE Patient Name: Etelvina Alonso Room/Bed: VT6664/01 Admitting Diagnosis: altered mental status Mobility Progressive Mobility Level: Stand Distance Walked (feet): 3 ft(sidesteps) Level of Assistance: Assist X2 Assistive Device: Hand Held Activity Limited By: Lines / Medical Devices;Fatigue;Weakness Subjective Pertinent Dx per Physician: HTN, HLD, no nhealing leg wounds, CAD s/p CABG in in [place] who presented to an OSH on 10/16 [...] plan for IR shortly. Activity Tolerance Endurance: 3/ Tolerates 25-30 Minutes [...] intraparenchymal air and surrounding edema. Transferred to [facility] for escalation of care. Flail sternum and [...] Location of Endotracheal tube (ETT) at the [facility] CPAP 40 5 5 Pre Activity:99 During [...] wound infection as below -10/16 presented to [facility] with a few days of fever, cough [...] regurgitation. Concern for bilateral LE wound infection, [facility] Bilateral vein harvest sites on lower extremities from CABG in [facility], 07/2018 Multiple cultures in [facility]. 09/07/18- Culture from R leg incision - [...] growing Pseudomonas that shows resistance to meropenem. 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 Will tentatively plan for 2 weeks (from 10/23) of cefepime to treat both the LE wound infections and Strep pneumo bacteremia and suspected ELECTRONIC VIDEO GAMES SERVICER abscess. Tentative last day of cefepime would be 11/05. -After cefepime she could be transitioned to ceftriaxone 2 g IV BID for meningitis. This would continue until at least 11/12 (4 weeks from 10/16). -Monitor for abx side effects -If on DC pt transfers to [facility]ACH, their ID physicians will take over ID care. Benny Sepulveda MD Plant Culture Manager Division of Infectious Diseases Interval History Etelvina Alonso is a 58 y.o. female with a PMH significant for CABG (07/2018) who presented to [facility] in [facility] on 10/16/18 after noting worsening cough and sternal pain from recent sternotomy and non-healing LE graft sites. Transferred to [facility] on 10/19/18 for right temporal lobe intraparenchymal [...] 10/23 active Ceftriaxone 10/18/18 10/20/18 Cefedinir 09/23/18 [employer]POSIT, uncertain timeframe Doxycycline 100 mg PO BID 09/06/18 [employer]PER[employer]POSIT, uncertain timeframe Ejimfunysiu150 mg PO BID 08/23/18 [employer]PER[employer]POSIT, uncertain timeframe Fluconazole 150 mg PO QD 08/17/18 [employer]PER[employer]POSIT, uncertain timeframe Vancomycin 10/20/1810/24 Ampicillin 10/20/18 10/20/18 Fluconazole 10/20/18 10/26/18 Oseltamivir 10/21/1810/30 Meropenem 10/20/1810/23 Bactrim 08/17/18 [employer]PER[employer]POSIT, uncertain timeframe Estimated Creatinine Clearance: 72.1 mL/min [...] Meds:acetaminophen Q4H PRN, calcium gluconate IV PRN (Auto Slip Cover Installer from Rx) AND Ionized Calcium PRN AND Notify Physician Ongoing, fentaNYL citrate PF Q1H PRN, ipratropium/albuterol Q4H PRN, magnesium sulfate PRN AND [CANCELED] Magnesium PRN AND Notify Physician Ongoing, oxyCODONE Q4H PRN, pancrelipase 20,000 Units/ sodium bicarbonate 650 mg(#) PRN ( Auto Slip Cover Installer from Rx), potassium chloride SR PRN OR potassium chloride PRN Physical Examination Vital Signs: Last Vital Signs: 24 Hour Range BP: 130/100 (03/21 0800) Temp: 37.2 C (98.9 F) (11/01 0400) [...] PIV x2 Laboratory Hematology Recent Labs 10/30/18 0405 10/31/18 0250 11/01/18 0415 WBC 11.0 11.1* 8.5 HGB 8.6* 8.9* 11.4* HCT 25.4* 26.1* 35.0* PLTCT 481* 545* 588* Chemistry Recent Labs 10/30/18 0405 10/30/18 1945 10/31/18 0250 11/01/18 0415 NA 135* 138 139 [...] records, intensive abx monitoring. * Shelby Collier, LOOM REPAIRER-EDGING CATCHER - 11/01/2018 7:35 AM CDT Neuro Critical [...] intraparenchymal air and surrounding edema. Transferred to [facility] for escalation of care. Hospital and ICU course: 10/19: [facility] 10[facility]: LP 10/26: DC amiodarone. Start [...] - MAP goal > 65 - holding SUPER[employer] DEPOSIT lisinopril and Toprol - plan to resume low dose BB after PEG placement - continue [employer]PER[employer] DEPOSIT atrovastatin and ASA - gentle diuresis with lasix Respiratory: Acute hypoxic and hypercapneic respiratory failure on mechanical ventilation S/p Trach placement 10/29 per ENT Chest Xray 10/31:Progressing mixed opacities most apparent in the left perihilar region and left midlung. Persistent cardiomegaly with vascular congestion and small bilateral pleural effusions. - Currently on PS 5/5 - SUPER[employer] DEPOSIT budesonide - trach to be changed per [...] Potassium goal >4.0 mEq/L Prophylaxis Review: A)GI: [id number] B) Lines:Yes; Central Line; Indication: Frequent blood [...] (11/01 699) Temp: 37.2 C (98.9 F) (11/010) Pulse: 88 (11/01 699) Respirations: 22 PER [...] (113 lb 8.6 oz), SpO2 98 %. [place] coma score: E: 4 - Opens eyes [...] Review: Pertinent radiologic and diagnostic procedures reviewed. CLAIRE Koroma Date: 11/01/[phone] I spent 55 minutes managing the care [...] brain Wounds (NOT for Pressure Injuries) 10/19/18 233 Left Leg Surgical Incision ( Active) 10/19/18 233 Leg Wound Orientation: Left Wound Type: Surgical Incision Wound Type:: Wound Description (Comments): Dehiscence from prior surgery Wound Image 10/31/2018 2:30 PM Wound Base Assessment Moist;[place]ell 10/31/2018 2:30 PM Surrounding Skin Assessment Dry;Intact [...] dressing changes. Will continue to follow. Abbie Cleaning, RN, BSN, CWON Wound/Ostomy Nursing Consult Service Office: [phone] Pager: [phone] Wound/Ostomy Team Pager (After Hours/Weekends): [phone] * Judy Santoro MD - 10/31/2018 11:53 [...] with pt's today. Remainder of plan per LOOM REPAIRER's note. Dispo: This patient is critically ill [...] Meds:acetaminophen Q4H PRN, calcium gluconate IV PRN (Auto Slip Cover Installer from Rx) AND Ionized Calcium PRN AND Notify Physician Ongoing, fentaNYL citrate PF Q1H PRN, ipratropium/albuterol Q4H PRN, magnesium sulfate PRN AND [CANCELED] Magnesium PRN AND Notify Physician Ongoing, oxyCODONE Q4H PRN, pancrelipase 20,000 Units/ sodium bicarbonate 650 mg(#) PRN ( Auto Slip Cover Installer from Rx), potassium chloride SR PRN OR potassium chloride PRN Vital Signs: Last Filed Vital Signs: 24 Hour Range BP: 150/76 (10/31 1099) Temp: 37.2 C (98.9 F) (10/31 0400) Pulse: 101 (10/31 1099) Respirations: 22 PER MINUTE (10/31 1099) SpO2: 100 % (10/31 1099) O2 Delivery: Tracheal Tube (10/31 1099) BP: (70-161)/(43-103) Temp: [37.2 C (98.9 F)-37.6 [...] Review: Pertinent radiology reviewed. Julia Santoro MD 10/31/2018 Pager: [phone] * Elenita Butler, OT - 10/31/2018 10:05 AM CDT OCCUPATIONAL THERAPY PROGRESS NOTE Patient Name: Etelvina Alonso Room/Bed: HD3585/01 Admitting Diagnosis: altered mental status Mobility Progressive Mobility Level: Stand Level of Assistance: Assist X2 Assistive Device: Hand Held Time Tolerated: 11-30 minutes Activity Limited By: Lines / Medical Devices;Patient request to stop;Dizziness; Fatigue Subjective Pertinent Dx per Physician: HTN, HLD, no nhealing leg wounds, CAD s/p CABG in in [place] who presented to an OSH on 10/16 [...] intraparenchymal air and surrounding edema. Transferred to [facility] for escalation of care. Flail sternum and [...] [facility] CPAP 40% 5 5 Pre Activity:99 During [...] Discharge Recommendations: Inpatient Setting Therapist: Louise Hennessy, MARSHA Date: 10/31/2018 * Benny Sepulveda MD - [...] wound infection as below -10/16 presented to [facility] with a few days of fever, [...] regurgitation. Concern for bilateral LE wound infection, [facility] Bilateral vein harvest sites on lower extremities from CABG in [facility], 07/2018 Multiple cultures in [facility]. 09/07/18- Culture from R leg incision - [...] growing Pseudomonas that shows resistance to meropenem. 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 Will tentatively plan for 2 weeks (from 10/23) of cefepime to treat both the LE wound infections and Strep pneumo bacteremia and suspected ELECTRON[employer] V[employer] GAMES SERVICER abscess. Tentative last day of cefepime would be 11/05. -After cefepime she could be transitioned to ceftriaxone 2 g IV BID for meningitis. This would continue until at least 11/12 (4 weeks from 10/16). -Monitor for abx side effects -If on DC pt transfers to [facility], their ID physicians will take over ID care. Shan Walker DO Infectious Diseases Fellow Pager # [phone] Discussed with attending on service, Dr. Sepulvead I have seen, personally evaluated, and discussed the patient's care with Dr. Walker, Infectious Diseases Fellow. I agree with the subjective notations, objective findings and agree with the plan of care as documented in this note with edits made by me as necessary. Benny Sepulveda MD Plant Culture Manager Division of Infectious Diseases Interval History Etelvina Alonso is a 58 y.o. female with a PMH significant for CABG (07/2018) who presented to [facility] in [facility] on 10/16/18 after noting worsening cough and sternal pain from recent sternotomy and non-healing LE graft sites. Transferred to [facility] on 10/19/18 for right temporal lobe intraparenchymal [...] 10/23 active Ceftriaxone 10/18/18 10/20/18 Cefedinir 09/23/18 [employer], uncertain timeframe Doxycycline 100 mg PO BID 09/06/18 [employer], uncertain timeframe [id number] mg PO BID 08/23/18 [employer], uncertain timeframe Fluconazole 150 mg PO QD 08/17/18 [employer], uncertain timeframe Vancomycin 10/20/1810/24 Ampicillin 10/20/18 10/20/18 Fluconazole 10/20/18 10/26/18 Oseltamivir 10/21/1810/30 Meropenem 10/20/1810/23 Bactrim 08/17/18 [employer], uncertain timeframe Estimated Creatinine Clearance: 72.1 mL/min [...] Meds:acetaminophen Q4H PRN, calcium gluconate IV PRN (Auto Slip Cover Installer from Rx) AND Ionized Calcium PRN AND Notify Physician Ongoing, fentaNYL citrate PF Q1H PRN, ipratropium/albuterol Q4H PRN, LORazepam Q6H PRN, magnesium sulfate PRN AND [CANCELED] Magnesium PRN AND Notify Physician Ongoing, oxyCODONE Q4H PRN, pancrelipase 20,000 Units/ sodium bicarbonate 650 mg (#) PRN (Auto Slip Cover Installer from Rx), potassium chloride SR PRN OR potassium chloride PRN Physical Examination Vital Signs: Last Vital Signs: 24 Hour Range BP: 132/70 (10/31 699) Temp: 37.2 C (98.9 F) (11/01 399) Pulse: 86 (10/31 699) Respirations: 28 PER [...] intraparenchymal air and surrounding edema. Transferred to [facility] for escalation of care. Hospital and ICU course: 10/19: [facility] 10/[facility]: DC amiodarone. Start spironolactone 12.5mg [...] goal: < 160 MAP goal > 65 [employer] lisinopril on hold [employer] atrovastatin and ASA Echo: 35-40%, mitral valve borderline prolapse and regurg no vegetations JYOTSNA:There is a small echogenic mass on the coaptation line of the aortic valve. Appears to likely be associated with the left coronary cusp. A vegetation Respiratory: RUL Pneumonia Date of Intubation: 10/17 Reason: Airway protection - Currently on PS 5/5, had to be placed back on MMV overnight [employer] budesonide Complained of SOA overnight- will get [...] Potassium goal >4.0 mEq/L Prophylaxis Review: A)GI: [id number] B) Lines:Yes; Central Line; Indication: Frequent blood [...] procedures reviewed. Mica Javed APRN Date: 10/31/[phone] I spent 45 minutes managing the care [...] assess. This RN at bedside. * Kelly Vitale, RD - 10/30/2018 4:30 PM CDT CLINICAL [...] Average : 1498 kilocalories(3 day EN ave ; 95% min goal; held 10/29 for trach) Intake (protein) Daily Average : 68 grams(3 day EN ave ; 85% min goal; held 10/29 for trach) [...] intraparenchymal air and surrounding edema. Transferred to [facility] for escalation of care. Pt remains intubated and sedated on Precedex now via trach placed 10/29. NGT in place. EN of Isosource 1.5 back to 50 ml/hr. 3- day EN ave 3/15-17 95% min kcal goal and 85% min protein goal. Obtained subjective data from pt 10/29 prior to OR. Pt notes regular diet [employer] with good intake and stable wt. New [...] Time Frame: Throughout Stay Status: Met;Ongoing Kelly Vitale MS,RD, LD, CNSC *[id number] * Benny Sepulveda [...] wound infection as below -10/16 presented to [facility] with a few days of fever, cough [...] regurgitation. Concern for bilateral LE wound infection, [facility] Bilateral vein harvest sites on lower extremities from CABG in [facility], 07/2018 Multiple cultures in [facility]. 09/07/18- Culture from R leg incision - [...] growing Pseudomonas that shows resistance to meropenem. 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 Will tentatively plan for 2 weeks (from 10/23) of cefepime to treat both the LE wound infections and Strep pneumo bacteremia and suspected ELECT[employer] VIDEO GAMES SERVICER abscess. Tentative last day of cefepime would [...] Walker DO Infectious Diseases Fellow Pager # [phone] Discussed with attending on service, Dr. Sepulveda I have seen, personally evaluated, and discussed the patient's care with Dr. Walker, Infectious Diseases Fellow. I agree with the subjective notations, objective findings and agree with the plan of care as documented in this note with edits made by me as necessary. Benny Sepulveda MD Plant Culture Manager Division of Infectious Diseases Interval History Etelvina Alonso is a 58 y.o. female with a PMH significant for CABG (07/2018) who presented to [facility] in [facility] on 10/16/18 after noting worsening cough and sternal pain from recent sternotomy and non-healing LE graft sites. Transferred to [facility] on 10/19/18 for right temporal lobe intraparenchymal [...] 10/23 active Ceftriaxone 10/18/18 10/20/18 Cefedinir 09/23/18 [employer], uncertain timeframe Doxycycline 100 mg PO BID 09/06/18 [employer], uncertain timeframe [id number] mg PO BID 08/23/18 [employer], uncertain timeframe Fluconazole 150 mg PO QD 08/17/18 [employer], uncertain timeframe Vancomycin 10/20/1810/24 Ampicillin 10/20/18 10/20/18 Fluconazole 10/20/18 10/26/18 Oseltamivir 10/21/18 active Meropenem 10/20/1810/23 Bactrim 08/17/18 [employer], uncertain timeframe Estimated Creatinine Clearance: 72.1 mL/min [...] Meds:acetaminophen Q4H PRN, calcium gluconate IV PRN (Auto Slip Cover Installer from Rx) AND Ionized Calcium PRN AND Notify Physician Ongoing, fentaNYL citrate PF Q1H PRN, ipratropium/albuterol Q4H PRN, magnesium sulfate PRN AND [CANCELED] Magnesium PRN AND Notify Physician Ongoing, oxyCODONE Q4H PRN, pancrelipase 20,000 Units/ sodium bicarbonate 650 mg(#) PRN ( Auto Slip Cover Installer from Rx), potassium chloride SR PRN OR [...] old records, intensive abx monitoring. * Magali Patel RN - 10/30/2018 1:00 PM CDT NEICU notified [...] RE-ASSESSMENT NOTE Patient Name: Etelvina Alonso Room/Bed: QK3231/01 Admitting Diagnosis: altered mental status Mobility Progressive Mobility Level: Sit on edge of bed Distance Walked (feet): 0 ft Level of Assistance: Assist X2 Assistive Device: Hand Held Time Tolerated: 11-30 minutes Activity Limited By: Lines / Medical Devices;Fatigue(anxiety) Subjective Pertinent Dx per Physician: HTN, HLD, no nhealing leg wounds, CAD s/p CABG in in [place] who presented to an OSH on 10/16 [...] and slow her breathing. Activity Tolerance Endurance: 10/16 Tolerates 25-30 Minutes [...] intraparenchymal air and surrounding edema. Transferred to [facility] for escalation of care. Flail sternum and [...] PT Discharge Recommendations: Inpatient Setting Therapist: Olimpia Schifferdecker, PT Date: 10/30/2018 * Abbie Cleaning RN [...] 0800 No Sacrum Stage 3 (Active) 10/24/18 0800 Pressure Injury Present On [...] Moist;Pale;Yellow 10/30/2018 8:14 AM Surrounding Skin Assessment Dry;Intact;[place]ell 10/30/2018 8:14 AM Wound Status (Wound Team [...] shearing at coccyx/sacrum. Abbie Cleaning RN, BSN, CWON Wound/Ostomy Nursing Consult Service Office: [phone] Pager: [phone] Wound/Ostomy Team Pager (After Hours/Weekends): [phone] Will continue to follow. * Shan Walker [...] wound infection as below -10/16 presented to [facility] with a few days of fever, cough [...] regurgitation. Concern for bilateral LE wound infection, [facility] Bilateral vein harvest sites on lower extremities from CABG in [facility], 07/2018 Multiple cultures in [facility]. 09/07/18- Culture from R leg incision - [...] growing Pseudomonas that shows resistance to meropenem. 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 Will tentatively plan for 2 weeks (from 10/23) of cefepime to treat both the LE wound infections and Strep pneumo bacteremia and suspected ELECT[employer] G[employer] SERVICER abscess. Tentative last day of cefepime would be 11/05. -After cefepime she could be transitioned to ceftriaxone 2 g IV BID for meningitis. This would continue until at least 11/12 (4 weeks from 10/16). -Monitor for abx side effects -Continue oseltamivir for influenza x 10 days total, through 10/30 (today) Shan Walker DO Infectious Diseases Fellow Pager # [phone] Discussed with attending on service, Dr. Sepulveda Interval History Etelvina Alonso is a 58 y.o. female with a PMH significant for CABG (07/2018) who presented to [facility] in [facility] on 10/16/18 after noting worsening cough and sternal pain from recent sternotomy and non-healing LE graft sites. Transferred to [facility] on 10/19/18 for right temporal lobe intraparenchymal [...] 10/23 active Ceftriaxone 10/18/18 10/20/18 Cefedinir 09/23/18 [employer], uncertain timeframe Doxycycline 100 mg PO BID 09/06/18 [employer], uncertain timeframe [id number] mg PO BID 08/23/18 [employer]IT, uncertain timeframe Fluconazole 150 mg PO QD 08/17/18 [employer], uncertain timeframe Vancomycin 10/20/1810/24 Ampicillin 10/20/18 10/20/18 Fluconazole 10/20/18 10/26/18 Oseltamivir 10/21/18 active Meropenem 10/20/1810/23 Bactrim 08/17/18 [employer]IT, uncertain timeframe Estimated Creatinine Clearance: 72.1 mL/min [...] Prior cultures 10/16/18 Blood cx (from [facility]): Strep Pneumo R- Clindamycin and erythromcyin Susceptible: [...] Meds:acetaminophen Q4H PRN, calcium gluconate IV PRN (Auto Slip Cover Installer from Rx) AND Ionized Calcium PRN AND Notify Physician Ongoing, fentaNYL citrate PF Q1H PRN, ipratropium/albuterol Q4H PRN, magnesium sulfate PRN AND [CANCELED] Magnesium PRN AND Notify Physician Ongoing, oxyCODONE Q4H PRN, pancrelipase 20,000 Units/ sodium bicarbonate 650 mg(#) PRN ( Auto Slip Cover Installer from Rx), potassium chloride SR PRN OR potassium chloride PRN Physical Examination Vital Signs: Last Vital Signs: 24 Hour Range BP: 90/59 (10/30 617) Temp: 37.2 C (98.9 F) (10/30 0400) Pulse: 61 (10/30 617) Respirations: 23 PER MINUTE (10/30 617) SpO2: 100 % (10/30 617) O2 Delivery: Tracheal Tube (10/30 0600) SpO2 [...] intraparenchymal air and surrounding edema. Transferred to [facility] for escalation of care. Hospital and ICU course: 10/19: Transferred from OSH to NEICU 10/26: DC amiodarone. Start spironolactone 12.5mg daily [...] MAP goal > 65 Continue spironolactone - [employer] lisinopril on hold will discuss starting tomorrow [employer] atrovastatin and ASA Echo today: 35-40%, mitral [...] - will get trach with ENT today [employer]IT budesonide Influenza virus positive GI: Feeding: NPO, [...] Potassium goal >4.0 mEq/L Prophylaxis Review: A)GI: [id number] B) Lines:Yes; Central Line; Indication: Frequent blood [...] (113 lb 8.6 oz), SpO2 100 %. Shawnee coma score: E: 4 - Opens eyes [...] procedures reviewed. Pankaj Bunn MD Date: 10/30/[phone] Associated attestation - Judy Santoro MD - [...] connected to ventilator NC/AT Face symmetric Right Mingo and Telfa removed at bedside this AM, [...] to OR with RT. Handoff given to NETWORK DEVELOPMENT COORDINATOR. VSS. * Benny Sepulveda MD - 10/29/2018 [...] wound infection as below -10/16 presented to [facility] with a few days of fever, cough [...] regurgitation. Concern for bilateral LE wound infection, [facility] Bilateral vein harvest sites on lower extremities from CABG in [facility], 07/2018 Multiple cultures in [facility]. 09/07/18- Culture from R leg incision - [...] growing Pseudomonas that shows resistance to meropenem. 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 Will tentatively plan for 2 weeks (from 10/23) of cefepime to treat both the LE wound infections and Strep pneumo bacteremia and suspected ELECTRONIC VIDEO GAMES SERVICER abscess. Tentative last day of cefepime would [...] placement, right tympanoplasty and mastoidectomy, tracheostomy Shan Walker DO Infectious Diseases Fellow Pager # [phone] Discussed with attending on service, Dr. Sepulveda I have seen, personally evaluated, and discussed the patient's care with Dr. Walker, Infectious Diseases Fellow. I agree with the subjective notations, objective findings and agree with the plan of care as documented in this note with edits made by me as necessary. Benny Sepulveda MD Plant Culture Manager Division of Infectious Diseases Interval History Etelvina Alonso is a 58 y.o. female with a PMH significant for CABG (07/2018) who presented to [facility] in [facility] on 10/16/18 after noting worsening cough and sternal pain from recent sternotomy and non-healing LE graft sites. Transferred to [facility] on 10/19/18 for right temporal lobe intraparenchymal air and edema seen on CTA. Seen this AM on vent. She was awake and nodding appropriately to questions. Afebrile over the weekend, intubated V/AC, 22, 40%, 5 Dexmedetomidine WBC 11.7 Cr 0.40 I/O: 2055/2259 [500 stool] (-203) Unable to complete ROS due to pt being intubated Antimicrobial Start date End date Cefepime 10/16/18-10/18/18, 10/23 active Ceftriaxone 10/18/18 10/20/18 Cefedinir 09/23/18 [employer], uncertain timeframe Doxycycline 100 mg PO BID 09/06/18 [employer]IT, uncertain timeframe [id number] mg PO BID 08/23/18 [employer]POSIT, uncertain timeframe Fluconazole 150 mg PO QD 08/17/18 [employer], uncertain timeframe Vancomycin 10/20/1810/24 Ampicillin 10/20/18 10/20/18 Fluconazole 10/20/18 10/26/18 Oseltamivir 10/21/18 active Meropenem 10/20/1810/23 Bactrim 08/17/18 [employer], uncertain timeframe Estimated Creatinine Clearance: 72.4 mL/min [...] mcg/NS 100 ml IV drip 0.6 mcg/kg/hr ( 0725) PRN and Respiratory Meds:acetaminophen Q4H PRN, calcium gluconate IV PRN (Auto Slip Cover Installer from Rx) AND Ionized Calcium PRN AND Notify Physician Ongoing, fentaNYL citrate PF Q2H PRN, ipratropium/albuterol Q4H PRN, magnesium sulfate PRN AND [CANCELED] Magnesium PRN AND Notify Physician Ongoing, oxyCODONE Q4H PRN, pancrelipase 20,000 Units/ sodium bicarbonate 650 mg(#) PRN ( Auto Slip Cover Installer from Rx), potassium chloride SR PRN OR [...] PLTCT 435* 454* 480* Chemistry Recent Labs 10/27/1841710/28/183 10/28/18 1414 10/29/188 NA 138 138 -- 138 K 3.9 [...] intraparenchymal air and surrounding edema. Transferred to [facility] for escalation of care. Hospital and ICU course: 10/19: [facility] 10/26: DC amiodarone. Start spironolactone 12.5mg [...] MAP goal > 65 Continue spironolactone - [employer]IT lisinopril on hold will discuss starting tomorrow [employer] atrovastatin and ASA Echo today: 35-40%, mitral [...] - will get trach with ENT today [employer]IT budesonide Influenza virus positive GI: Feeding: NPO, [...] Potassium goal >4.0 mEq/L Prophylaxis Review: A)GI: [id number] B) Lines:Yes; Central Line; Indication: Frequent blood [...] (113 lb 15.7 oz), SpO2 99 %. Daily coma score: E: 4 - [...] (Last 24 hours) Glucose: (!) 131 (10/29/18 0414) Lab Review: Pertinent labs reviewed Radiology and Other Diagnostic Procedures Review: Pertinent radiologic and diagnostic procedures reviewed. Pankaj Bunn MD Date: 10/29/[phone] Associated attestation - Judy Santoro MD - [...] care. Staff name: Julia Santoro MD Date: 10/29/2018 * Juvenal Gottlieb MD - 10/29/2018 6:29 AM CDT [facility]/HNS PROGRESS NOTE Today's Date: 10/29/2018 Admission Date: 10/19/2018 LOS: 10 days Subjective No acute events overnight. Remains intubated and asleep this AM. at bedside. Objective Vital Signs: Last Filed Vital Signs: 24 Hour Range BP: 90/48 (10/29 612) Temp: 37 C (98.6 F) (10/290) Pulse: 58 (10/29 612) Respirations: 27 PER MINUTE (10/29 612) SpO2: 99 % (10/29 612) O2 Delivery: Endotracheal Tube (Oral) (10/29 599) SpO2 Pulse: 55 (10/29 599) BP: (85-136)/(38-106) [...] Resident, [id number] * Pankaj Bunn MD - 10/28/2018 6:12 [...] intraparenchymal air and surrounding edema. Transferred to [facility] for escalation of care. Hospital and ICU course: 10/19: [facility] 10/26: DC amiodarone. Start spironolactone 12.5mg [...] goal: < 160 MAP goal > 65 [employer]IT metoprolol Start spironolactone - DC amiodarone (started for AFib ppx) - [employer]IT lisinopril on hold will discuss starting tomorrow [employer]IT atrovastatin and ASA - [employer]IT plavix on hold Echo today: 35-40%, mitral [...] trach placement with ENT early next week [employer] budesonide resumed Influenza virus positive PS/CPAP 4 [...] Potassium goal >4.0 mEq/L Prophylaxis Review: A)GI: [id number] B) Lines:Yes; Central Line; Indication: Frequent blood [...] (115 lb 15.4 oz), SpO2 100 %. Shawnee coma score: E: 4 - Opens eyes [...] procedures reviewed. Pankaj Bunn MD Date: 10/28/[phone] Associated attestation - Farhad Perez MD - [...] 7.5, iron deficiency CAD; recent CABGx4 in [place] in Jul 2018. Asa 81, atorvastatin [...] bedside and r/o subcapsular liver hematoma. ID: [email or web address] resovled Cefepime + vanc treatment was used. Cefepime through 11/05, to cover for menigitis plus the pseudomonas in the leg wounds, then change to ceftriaxone for remainder of 4 weeks Fluconazole for thrush stopped. Oseltamivir 10 d course, influenza pneumonia Will get ear tubes tomorrow Heme: iron deficiency anemia. Hold heparin for the OR. NEICU Attending Rollout Manager Attestation Etelvina Alonso is a 58 y.o. [...] Acute respiratory failure with hypoxia and hypercapnia ([facility]) 10/19/2018 Etelvina Alonso is a 58 y.o. [...] intraparenchymal air and surrounding edema. Transferred to [facility] for escalation of care. Hospital and ICU course: 10/19: [facility]SH [facility] 10/26: DC amiodarone. Start spironolactone 12.5mg [...] goal: < 160 MAP goal > 65 [employer]POSIT metoprolol Start spironolactone - DC amiodarone (started for AFib ppx) - [employer]IT lisinopril on hold will discuss starting tomorrow [employer]IT atrovastatin and ASA - [employer]IT plavix on hold Echo today: 35-40%, mitral [...] trach placement with ENT early next week [employer]IT budesonide resumed Influenza virus positive PS/CPAP 4 [...] Potassium goal >4.0 mEq/L Prophylaxis Review: A)GI: [id number] B) Lines:Yes; Central Line; Indication: Frequent blood [...] (not recorded) Vitals: 10/25/18 0400 10/26/18 0500 10/27/18399 Weight: 53.7 kg (118 lb 6.2 oz) [...] (117 lb 8.1 oz), SpO2 100 %. Shawnee coma score: E: 4 - Opens eyes [...] (Last 24 hours) Glucose: (!) 176 (10/27/18 0418) Lab Review: Pertinent labs reviewed Radiology and Other Diagnostic Procedures Review: Pertinent radiologic and diagnostic procedures reviewed. Pankaj Bunn MD Date: 10/27/[phone] Associated attestation - Farhad Perez MD - [...] months administration. CAD- recent emergent CABG in [place], [place]. She was recently on amiodarone for prophylaxis and failed to have this discontinued in clinic followup. She was given plavix by surgeon in [place] for 3mo duration after CABG per their [...] will be able to place PICC for intermediate abx. Continue meropenem and vancomycin Fluconazole for thrush Oseltamivir for + influenza Persistent leukocytosis Endo: normoglycemic NEICU Attending Rollout Manager Attestation Etelvina Alonso is a 58 y.o. [...] prophylaxis CV: CAD- recent emergent CABG in [place], [place]. She was recently on amiodarone for prophylaxis and failed to have this discontinued in clinic followup. She was given plavix by surgeon in [place] for 3mo duration after CABG per their [...] will be able to place PICC for intermediate abx. Continue meropenem and vancomycin Fluconazole for thrush Oseltamivir for + influenza Persistent leukocytosis Endo: normoglycemic NEICU Attending Rollout Manager Attestation Etelvina Alonso is a 58 y.o. [...] Farhad Perez MD Date: 10/26/2018 * Elenita Butler OT - 10/26/2018 2:32 PM CDT OCCUPATIONAL [...] Monday, will follow up after Therapist: Louise Hennessy PT Date: 10/26/2018 * Pato Jacinto MD [...] questions or concerns. Yoon Hernandez MD [id number] * Benny Sepulveda MD - 10/26/2018 7:32 [...] wound infection as below -10/16 presented to [facility] with a few days of fever, cough -3/5/19: BC x 2 Strep Pneumo R- Clindamycin [...] regurgitation. Concern for bilateral LE wound infection, [place] Bilateral vein harvest sites on lower extremities from CABG in [facility], 07/2018 Multiple cultures in [facility]. 09/07/18- Culture from R leg incision - [...] growing Pseudomonas that shows resistance to meropenem. 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 Will tentatively plan for 2 weeks (from 10/23) of cefepime to treat both the LE wound infections and Strep pneumo bacteremia and suspected ELECTRONIC VIDEO GAMES SERVICER abscess. Tentative last day of cefepime would [...] tympanomastoidectomy -Monitor for abx side effects Shan Walker, Infectious Diseases Fellow Pager # [phone] Discussed with attending on service, Dr. Sepulveda I have seen, personally evaluated, and discussed the patient's care with Dr. Walker, Infectious Diseases Fellow. I agree with the subjective notations, objective findings and agree with the plan of care as documented in this note with edits made by me as necessary. Benny Sepulveda MD Plant Culture Manager Division of Infectious Diseases I will round on Monday. For any questions over the weekend please page the ID fellow process controller at [phone] Interval History Etelvina Alonso is a 58 y.o. female with a PMH significant for CABG (07/2018) who presented to [facility] in [facility] on 10/16/18 after noting worsening cough and sternal pain from recent sternotomy and non-healing LE graft sites. Transferred to [facility] on 10/19/18 for right temporal lobe intraparenchymal air and edema seen on CTA. Afebrile, intubated V/AC, 18, 40%, 5 Dexmedetomidine WBC 12.6 Cr 0.41 I/O: 2460/3374 (-913) Discussed with pt's at bedside Unable to complete ROS due to pt mental status Antimicrobial Start date End date Cefepime 10/16/18-10/18/18, 10/23 active Ceftriaxone 10/18/18 10/20/18 Cefedinir 09/23/18 [employer]IT, uncertain timeframe Doxycycline 100 mg PO BID 09/06/18 [employer], uncertain timeframe [id number] mg PO BID 08/23/18 [employer]IT, uncertain timeframe Fluconazole 150 mg PO QD 08/17/18 [employer], uncertain timeframe Vancomycin 10/20/1810/24 Ampicillin 10/20/18 10/20/18 Fluconazole 10/20/18 active Oseltamivir 10/21/18 active Meropenem 10/20/1810/23 Bactrim 08/17/18 [employer], uncertain timeframe Estimated Creatinine Clearance: 73.1 mL/min [...] mcg/NS 100 ml IV drip 0.7 mcg/kg/hr ( 07) PRN and Respiratory Meds:acetaminophen Q6H PRN, calcium gluconate IV PRN (Auto Slip Cover Installer from Rx) AND Ionized Calcium PRN AND Notify Physician Ongoing, fentaNYL citrate PF Q2H PRN, ipratropium/albuterol Q4H PRN, magnesium sulfate PRN AND [] Magnesium PRN AND Notify Physician Ongoing, oxyCODONE Q4H PRN, pancrelipase 20,000 Units/ sodium bicarbonate 650 mg(#) PRN (Auto Slip Cover Installer from Rx), potassium chloride SR PRN OR potassium chloride PRN Physical Examination Vital Signs: Last Vital Signs: 24 Hour Range BP: 96/57 (10/26 699) Temp: 37.1 C (98.8 F) (10/26 0400) Pulse: 64 (10/26 699) Respirations: 28 PER MINUTE (10/26 699) SpO2: 100 % (10/26 699) O2 Delivery: Endotracheal Tube (Oral) (10/26 0300) SpO2 Pulse: 57 (10/26 699) BP: (93-118)/(36-92) Temp: [36.8 C (98.2 F)-37.3 [...] PLTCT 378 327 355 Chemistry Recent Labs 10/24/18 02010/25/18 03110/25/18 0815 10/25/18 1400 10/26/18 0316 NA 140 [...] leg wounds, CAD s/p CABG in07/2018 in [place] who presented to an OSH on 10/16 with shortness of breath and chest pains and found to have a RUL pneumonia. She was intubated on 10/17 2/2 worsening respiratory status and AMS. 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 She has failed ventilator weaning since transfer to [facility]. CTS is consulted for evaluation of [...] patient including examining the patient. * Mica Javed, SEMAJ - 10/26/2018 7:14 AM CDT Neuro Critical [...] intraparenchymal air and surrounding edema. Transferred to [facility] for escalation of care. Hospital and ICU course: 10/19: [facility] OSH [facility] 10/26: DC amiodarone. Start spironolactone 12.5mg [...] goal: < 160 MAP goal > 65 [employer] metoprolol Start spironolactone - DC amiodarone (started for AFib ppx) - [employer] lisinopril on hold will discuss starting tomorrow [employer] atrovastatin and ASA - [employer]IT plavix on hold Echo today: 35-40%, mitral [...] trach placement with ENT early next week [employer] budesonide resumed Influenza virus positive - PaO2 [...] per recs Wounds (NOT for Pressure Injuries) 10/19/182329 Left Leg Surgical Incision ( Active) 10/19/182329 Leg Wound Orientation: Left Wound Type: Surgical [...] 0800 No Sacrum Stage 3 (Active) 10/24/18 0800 Pressure Injury Present On [...] None 11/03/2018 8:00 AM Wound Base Assessment Moist;[place] 11/03/2018 12:00 AM Surrounding Skin Assessment Intact [...] Number of days: 16 Prophylaxis Review: A)GI: [id number] B) Lines:Yes; Central Line; Indication: Frequent blood draws; Type: Internal jugular C) Urinary Catheter:Yes; Retain salomon due to: Need for accurate Intake and Output D) Antibiotic Usage:Yes; Infection present or suspected: Lung; Pneumonia E) VTE:Pharmacological prophylaxis; SQ Heparinand Mechanical prophylaxis; Sequential compression device F) Isolation:na G)Seizures:na I) Restraints: Patient assessed for need for restraints. Disposition/Family:Require ICU monitoring Primary service:NEELIZABETHU Consults: None SUBJECTIVE Etelvina Alonso is a 58 y.o. female. Overnight Events: No new events noted. OBJECTIVE Vital Signs: Last Filed Vital Signs: 24 Hour Range BP: 96/57 (10/26 07) Temp: 37.1 C (98.8 F) (10/26 0400) Pulse: 64 (10/26 699) Respirations: 28 PER MINUTE (10/26 699) SpO2: 100 % (10/26 699) O2 Delivery: Endotracheal Tube (Oral) (10/26 030) Weight: 52.2 kg (115 lb 1.3 oz) [...] (115 lb 1.3 oz), SpO2 100 %. Shawnee coma score: E: 4 - Opens eyes [...] Pertinent radiologic and diagnostic procedures reviewed. Mica Javed, SEMAJ Date: 10/26/[phone] I spent 50 minutes managing the care [...] wean after that Recent emergent CABG at [facility] in [facility]. her leg wound infections may have been influenced by the fact that she lived in an extended stay hotel in [place] and lives in one bedroom apartment with 6 people in [facility] and she has continued to smoke until this admission. Will d/c amiodarone after some further diuresis Will remain of plavix - I can see no reason why she reverted to this- it was not a current med at her CTS visit for her leg wounds in [place]. Her CTS surgery op report does not [...] sternal fixation- he will be travelling to [facility] today but will return tomorrow She has [...] will be able to place PICC for intermediate abx. Continue meropenem and vancomycin Fluconazole for thrush Oseltamivir for + influenza Persistent leukocytosis, low grade fever, but neurologic improvement. Endo: normoglycemic NEICU Attending Rollout Manager Attestation Etelvina Alonso is a 58 y.o. [...] Current Oral Intake: NPO Estimated Calorie Needs: 0571-8268 kcal(25-30 kcal/kg per present wt 52.8kg) Estimated [...] intraparenchymal air and surrounding edema. Transferred to [facility] for escalation of care. Pt remains intubated [...] If patient extubated, recommend diet textures per CONTINUOUS IMPROVEMENT LEAD recs with eventual goal diet of Cardiac [...] Throughout Stay Kelly Vitale, MS,RD, LD, CNSC *1023 * Elenita Butler, OT - 10/25/2018 1:49 PM CDT OCCUPATIONAL THERAPY ASSESSMENT NOTE Patient Name: Etelvina Alonso Room/Bed: WJ3782/01 Admitting Diagnosis: altered mental status Mobility Progressive Mobility Level: Active bed level mobility Level of Assistance: Assist X2 Assistive Device: None Time Tolerated: 0-10 minutes Activity Limited By: Patient request to stop Subjective Pertinent Dx per Physician: HTN, HLD, no nhealing leg wounds, CAD s/p CABG in in [place] who presented to an OSH on 10/16 [...] evaluate as able and indicated. Therapist: Louise Hennessy PT Date: 10/25/2018 * Benny Sepulveda MD - [...] wound infection as below -10/16 presented to [facility] with a few days of fever, cough [...] regurgitation. Concern for bilateral LE wound infection, [facility] Bilateral vein harvest sites on lower extremities from CABG in [facility], 07/2018 Multiple cultures in [facility]. 09/07/18- Culture from R leg incision - [...] growing Pseudomonas that shows resistance to meropenem. 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 Will tentatively plan for 2 weeks (from 10/23) of cefepime to treat both the LE wound infections and Strep pneumo bacteremia and suspected ELECTRONIC VIDEO GAMES SERVICER abscess. Tentative last day of cefepime would [...] for abx side effects Benny Sepulveda MD Plant Culture Manager Division of Infectious Diseases Interval History Etelvina Alonso is a 58 y.o. female with a PMH significant for CABG (07/2018) who presented to [facility] in [facility] on 10/16/18 after noting worsening cough and sternal pain from recent sternotomy and non-healing LE graft sites. Transferred to [facility] on 10/19/18 for right temporal lobe intraparenchymal air and edema seen on CTA. Afebrile, intubated V/AC, 18, 40%, 5 Dexmedetomidine WBC down to 13.9, Cr 0.36 Cdiff PCR negative Unable to complete ROS due to pt mental status Antimicrobial Start date End date Cefepime 10/16/18-10/18/18, 10/23 active Ceftriaxone 10/18/18 10/20/18 Cefedinir 09/23/18 [employer]IT, uncertain timeframe Doxycycline 100 mg PO BID 09/06/18 [employer], uncertain timeframe [id number] mg PO BID 08/23/18 [employer]IT, uncertain timeframe Fluconazole 150 mg PO QD 08/17/18 [employer]IT, uncertain timeframe Vancomycin 10/20/1810/24 Ampicillin 10/20/18 10/20/18 Fluconazole 10/20/18 active Oseltamivir 10/21/18 active Meropenem 10/20/1810/23 Bactrim 08/17/18 [employer]IT, uncertain timeframe Estimated Creatinine Clearance: 75.2 mL/min [...] 0.9 % infusion 75 mL/hr at 10/24/18 2050 PRN and Respiratory Meds:acetaminophen Q6H PRN, calcium gluconate IV PRN (Auto Slip Cover Installer from Rx) AND Ionized Calcium PRN AND Notify Physician Ongoing, fentaNYL citrate PF Q2H PRN, ipratropium/albuterol Q4H PRN, magnesium sulfate PRN AND [] Magnesium PRN AND Notify Physician Ongoing, oxyCODONE Q4H PRN, pancrelipase 20,000 Units/ sodium bicarbonate 650 mg(#) PRN (Auto Slip Cover Installer from Rx), potassium chloride SR PRN OR potassium chloride PRN Physical Examination Vital Signs: Last Vital Signs: 24 Hour Range BP: 107/57 (10/25 0800) Temp: 37 C (98.6 F) (10/26 799) [...] tube; Salomon; NDT Laboratory Hematology Recent Labs 10/23/1832410/24/1819910/25/18318 WBC 16.9* 16.3* 13.9* HGB 8.2* 8.9* 8.0* HCT 25.2* 27.1* 24.2* PLTCT 312 378 327 Chemistry Recent Labs 10/23/1832410/24/1819910/24/18 0956 10/25/18 0319 NA 145 -- 140 [...] Yessica Burris MD [id number] * Beatriz Cardoza, LOOM REPAIRER - 10/25/2018 7:22 AM CDT Neuro Critical [...] intraparenchymal air and surrounding edema. Transferred to [facility] for escalation of care. Hospital and ICU course: 10/19: Transfer[facility] OSH [facility] Neuro/ENT: Altered mental status; Meningitis; right [...] goal: < 160 MAP goal > 65 [employer]IT metoprolol, amiodarone - [employer]IT lisinopril on hold [employer]IT atrovastatin and ASA - [employer]IT plavix on hold Echo today: 35-40%, mitral [...] trach placement with ENT early next week [employer] budesonide resumed Influenza virus positive - PaO2 [...] OSH with Cr 1.10 10/16 Cr now 0.36 Aim for normovolemia - [...] Potassium goal >4.0 mEq/L Prophylaxis Review: A)GI: [id number] B) Lines: Yes; Central Line; Indication: Frequent [...] Vital Signs: 24 Hour Range BP: 104/58 (10/25 1200) Temp: 37.2 C (98.9 F) (10/25 1200) Pulse: 69 (10/25 1200) Respirations: 30 PER MINUTE (10/25 1200) SpO2: 100 % (10/25 1200) O2 Delivery: Endotracheal Tube (Oral) (10/25 1200) Weight: 53.7 kg (118 lb 6.2 oz) [...] (118 lb 6.2 oz), SpO2 100 %. Shawnee coma score: E: 4 - Opens eyes [...] Testing: (Last 24 hours) Glucose: (!) 164 (10/25/189) POC Glucose (Download): (!) 161 (10/25/18629) Lab [...] consulted teams Beatriz Cardoza APRN Date: 10/25/[phone] * Olvin Vargas, PHARMD - 10/24/2018 11:47 AM CDT Pharmacy Vancomycin Note Subjective: Etelvina Alonso is a 58 y.o. female being treated for cerebritis. Objective: Current Vancomycin Orders Medication Dose Route Frequency vancomycin (VANCOCIN) 1,000 mg in dextrose 5% (D5W) 250 mL IVPB ([id number]) 1 g Intravenous Q12H* vancomycin, pharmacy to manage 1 each Service Per Pharmacy Start Date of Vancomycin therapy: 10/20/2018 White Blood Cells Date/Time Value Ref Range Status 10/24/2018 0200 16.3 (H) 4.5 - 11.0 K/UL Final 10/23/2018 0325 16.9 (H) 4.5 - 11.0 K/UL Final 10/22/2018 031 16.3 (H) 4.5 - 11.0 K/UL Final Creatinine Date/Time Value Ref Range Status 10/24/2018 0200 0.37 (L) 0.4 - 1.00 MG/DL Final 10/23/2018 0325 0.33 (L) 0.4 - 1.00 MG/DL Final 10/22/20185 0.47 0.4 - 1.00 MG/DL Final Blood [...] wound infection as below -10/16 presented to [facility] with a few days of fever, cough [...] regurgitation. Concern for bilateral LE wound infection, [facility] Bilateral vein harvest sites on lower extremities from CABG in [facility], 07/2018 Multiple cultures in [facility]. 09/07/18- Culture from R leg incision - [...] growing Pseudomonas that shows resistance to meropenem. 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 Will tentatively plan for 2 weeks of cefepime to treat both the LE wound infections and Strep pneumo bacteremia and suspected ELECTRONIC VIDEO GAMES SERVICER abscess. Tentative last day of cefepime would [...] Walker DO Infectious Diseases Fellow Pager # [phone] Discussed with attending on service, Dr. Sepulveda I have seen, personally evaluated, and discussed the patient's care with Dr. Walker, Infectious Diseases Fellow. I agree with the subjective notations, objective findings and agree with the plan of care as documented in this note with edits made by me as necessary. Benny Sepulveda MD Plant Culture Manager Division of Infectious Diseases Interval History Etelvina Alonso is a 58 y.o. female with a PMH significant for CABG (07/2018) who presented to [facility] in [facility] on 10/16/18 after noting worsening cough and sternal pain from recent sternotomy and non-healing LE graft sites. Transferred to [facility] on 10/19/18 for right temporal lobe intraparenchymal [...] 10/23 active Ceftriaxone 10/18/18 10/20/18 Cefedinir 09/23/18 [employer]POSIT, uncertain timeframe Doxycycline 100 mg PO BID 09/06/18 [employer]OR [employer]POSIT, uncertain timeframe [id number] mg PO BID 08/23/18 [employer]OR [employer]POSIT, uncertain timeframe Fluconazole 150 mg PO QD 08/17/18 [employer]POSIT, uncertain timeframe Vancomycin 10/20/1810/24 Ampicillin 10/20/18 10/20/18 Fluconazole 10/20/18 active Oseltamivir 10/21/18 active Meropenem 10/20/1810/23 Bactrim 08/17/18 [employer]POSIT, uncertain timeframe Estimated Creatinine Clearance: 73.9 mL/min [...] in dextrose 5% (D5W) 250 mL IVPB ([id number]) 1 g Intravenous Q12H* Continuous Infusions: propofol (DIPRIVAN) 10 mg/mL IV infusion 25 mcg/kg/min (10/23/18 1830) sodium chloride 0.9 % infusion 75 mL/hr at 10/24/18 0502 PRN and Respiratory Meds:acetaminophen Q6H PRN, calcium gluconate IV PRN (Auto Slip Cover Installer from Rx) AND Ionized Calcium PRN AND Notify Physician Ongoing, fentaNYL citrate PF Q2H PRN, ipratropium/albuterol Q4H PRN, magnesium sulfate PRN AND Magnesium PRN AND Notify Physician Ongoing, oxyCODONE Q4H PRN, pancrelipase 20,000 Units/ sodium bicarbonate 650 mg(#) PRN (Auto Slip Cover Installer from Rx), potassium chloride SR PRN OR potassium chloride PRN, [DISCONTINUED] vancomycin IVPB Q8H* AND vancomycin, pharmacy to manage Per Pharmacy Physical Examination Vital Signs: Last Vital Signs: 24 Hour Range BP: 133/82 (10/24 699) Temp: 37 C (98.6 F) (10/24 0400) Pulse: 103 (10/24 699) Respirations: 22 PER MINUTE (10/24 699) SpO2: 100 % (10/24 699) O2 Delivery: Endotracheal Tube (Oral) (10/24 699) SpO2 Pulse: 103 (10/24 699) Height: 163 cm (64.17") (10/23 1551) BP: [...] Salomon; NG tube Laboratory Hematology Recent Labs 10/22/1831410/23/18 0325 10/24/18 0200 WBC 16.3* 16.9* 16.3* HGB 9.3* 8.2* 8.9* HCT 28.2* 25.2* 27.1* PLTCT 324 312 378 Chemistry Recent Labs 10/22/1831410/23/185 10/23/18 1317 10/24/18 0200 NA 150* 145 [...] intraparenchymal air and surrounding edema. Transferred to [facility] for escalation of care. Hospital and ICU course: 10/19: Transfer[facility] OSH [facility] Neuro: Altered mental status: encephalopathic vs sepsis; Q1 neurochecks Keppra 500 mg BID Lumbar puncture 10/24 Repeat MRI maybe on Monday PT/OT Sedation/Pain Management: D/c propofol Start on precedex PRN fentanyl, oxycodone and tylenol available - Assess for delirium daily Cardiac: HTN; HLD; CAD s/p CABG in 07/2018; Paroxysmal AF SBP goal: < 160 MAP goal > 65 [employer] DE[employer]IT metoprolol, amiodarone - [employer] DEPOSIT lisinopril on hold [employer]POSIT atrovastatin and ASA - SU[employer] DEPOSIT plavix on hold Echo today: 35-40%, mitral [...] opacities, which may represent pneumonia and/or edema. [employer]POSIT budesonide resumed Influenza virus positive Talk to [...] goal 100-180mg/dl FEN: IVF: 75 ml/hr NS 3 K 3.2 Mg 1.9 Phos 2.8 iCal 1.[address] Magnesium goal >2.0, i-Earl goal > 1.0, Potassium goal >4.0 mEq/L Prophylaxis Review: A)GI: [id number] B) Lines: Yes; Central Line; Indication: Frequent [...] atrial fibrillation (HCC) Pneumothorax tripped over a Biscotti toy, had a pneumothorax, had lung surgery in hospital at [facility] Restless leg syndrome Past Surgical History: Procedure Laterality Date HX CORONARY ARTERY BYPASS GRAFT HYSTERECTOMY OOPHORECTOMY ORTHOPEDIC SURGERY ligament repair in december 2017 VASCULAR SURGERY Family History Problem Relation Age of Onset Psoriasis Sister Heart Attack Sister maker 95% blocked s/p stenting Diabetes Sister Heart Disease Brother [place] in , with several stents Social History Social History Narrative Has 2 children and 2 grandchildren Son lives in [place] She is , to [place], for 30 years 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 Shawnee coma score: 7+T E: 2 - Opens [...] procedures reviewed. Pankaj Bunn MD Date: 10/24/[phone] Associated attestation - Farhad Perez MD - [...] CV: flail sternum Recent emergent CABG at [facility] in [facility]. 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 Afterward would sleep in a chair, SOB [...] sternal fixation- he will be travelling to [facility] tomorrow but will return the and will [...] will be able to place PICC for intermediate abx. Continue meropenem and vancomycin Fluconazole for thrush Oseltamivir for + influenza Persistent leukocytosis, low grade fever, but neurologic improvement. Endo: normoglycemic NEICU Attending Rollout Manager Attestation Etelvina Alonso is a 58 y.o. [...] time. Marina Gudino APRN Neurosurgery Call Pager [phone] * Juvenal Gottlieb MD - 10/23/2018 7:24 [...] Tube (Oral) (10/23 699) SpO2 Pulse: 107 (10/23 699) BP: (105-143)/(54-82) Temp: [37 C [...] with hypoxia and hypercapnia (HCC) 10/19/2018 Etelvina Aolnso is a 58 y.o. female with history [...] intraparenchymal air and surrounding edema. Transferred to [facility] for escalation of care. Hospital and ICU course: 10/19: [facility] OSH [facility] Neuro: Altered mental status: encephalopathic vs [...] goal: < 160 MAP goal > 65 [employer]OR [employer] DEPOSIT metoprolol, amiodarone - [employer] DEPOSIT lisinopril on hold [employer] DEPOSIT atrovastatin and ASA - SU[employer] DEPOSIT plavix on hold Echo today: 35-40%, mitral valve borderline prolapse and regurg no vegetations Plan for JYOTSNA Respiratory: RUL Pneumonia Date of Intubation: 10/17 Reason: Airway protection V/AC: - CXR: Increased lung volumes with persistent patchy mixed alveolar and interstitial opacities, which may represent pneumonia and/or edema. [employer] DEPOSIT budesonide resumed Influenza virus positive Talk to [...] Potassium goal >4.0 mEq/L Prophylaxis Review: A)GI: [id number] B) Lines: Yes; Central Line; Indication: Frequent [...] atrial fibrillation (HCC) Pneumothorax tripped over a Biscotti toy, had a pneumothorax, had lung surgery in hospital [facility] Restless leg syndrome Past Surgical History: Procedure Laterality Date HX CORONARY ARTERY BYPASS GRAFT HYSTERECTOMY OOPHORECTOMY ORTHOPEDIC SURGERY ligament repair in december 2017 VASCULAR SURGERY Family History Problem Relation Age of Onset Psoriasis Sister Heart Attack Sister maker 95% blocked s/p stenting Diabetes Sister Heart Disease Brother [place] in s, with several stents Social History Social History Narrative Has 2 children and 2 grandchildren Son lives in [place] She is , to [place], for 30 years 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 Daily coma score: [...] procedures reviewed. Pankaj Bunn MD Date: 10/23/[phone] Associated attestation - Farhad Perez MD - 10/23/2018 6:46 PM CDT NEICU Attending Rollout Manager Attestation Etelvina Alonso is a 58 y.o. [...] wound infection as below -10/16 presented to [facility] with a few days of fever, cough [...] empyema. Concern for bilateral LE wound infection, [facility] Bilateral vein harvest sites on lower extremities from CABG in [facility], 07/2018 Multiple cultures in [facility]. 09/07/18- Culture from R leg incision - [...] This is targeting LE infections, not the ELECTRONIC VIDEO GAMES SERVICER infection. 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 -Will follow YJOTSNA results -Note plan for f/u MRI -Continue oseltamivir for influenza A x at least 5 days, might be reasonable to consider x 10 days given severity of overall illness -Continue fluconazole for thrush while intubated -Monitor for abx side effects Shan Walker, Infectious Diseases Fellow Pager # [phone] Discussed with attending on service, Dr. Sepulveda I have seen, personally evaluated, and discussed the patient's care with Dr. Walker, Infectious Diseases Fellow. I agree with the subjective notations, objective findings and agree with the plan of care as documented in this note with edits made by me as necessary. Benny Sepulveda MD Plant Culture Manager Division of Infectious Diseases Interval History Etelvina Alonso is a 58 y.o. female with a PMH significant for CABG (07/2018) who presented to [facility] in [facility] on 10/16/18 after noting worsening cough and sternal pain from recent sternotomy and non-healing LE graft sites. Transferred to [facility] on 10/19/18 for right temporal lobe intraparenchymal air and edema seen on CTA. Seen this AM intubated and sedated. Leukocytosis overall unchanged. Afebrile overnight (Tmax 100.1) WBC 16.9 Cr 0.3 I/O: 4665/2275 (+2390) Unable to complete ROS due to pt mental status Antimicrobial Start date End date Cefepime 10/16/18-10/18/18, 10/23 active Ceftriaxone 10/18/18 10/20/18 Cefedinir 09/23/18 [employer] DEPOSIT, uncertain timeframe Doxycycline 100 mg PO BID 09/06/18 [employer]POSIT, uncertain timeframe [id number] mg PO BID 08/23/18 [employer] DEPOSIT, uncertain timeframe Fluconazole 150 mg PO QD 08/17/18 [employer]POSIT, uncertain timeframe Vancomycin 10/20/18 active Ampicillin 10/20/18 10/20/18 Fluconazole 10/20/18 active Oseltamivir 10/21/18 active Meropenem 10/20/1810/23 Bactrim 08/17/18 [employer] DEPOSIT, uncertain timeframe Estimated Creatinine Clearance: 73.9 mL/min [...] in dextrose 5% (D5W) 250 mL IVPB ([id number]) 1 g Intravenous Q12H* Continuous Infusions: propofol (DIPRIVAN) 10 mg/mL IV infusion 35 mcg/kg/min (10/23/18 0332) PRN and Respiratory Meds:acetaminophen Q6H PRN, calcium gluconate IV PRN (Auto Slip Cover Installer from Rx) AND Ionized Calcium PRN AND Notify Physician Ongoing, fentaNYL citrate PF Q2H PRN, ipratropium/albuterol Q4H PRN, magnesium sulfate PRN AND Magnesium PRN AND Notify Physician Ongoing, oxyCODONE Q4H PRN, pancrelipase 20,000 Units/ sodium bicarbonate 650 mg(#) PRN (Auto Slip Cover Installer from Rx), potassium chloride SR PRN OR [...] ET tube; [facility] Recent Labs 10/21/1830910/22/1831410/23/18 0325 WBC 18.6* 16.3* 16.9* HGB 9.4* 9.3* 8.2* HCT 27.9* 28.2* 25.2* PLTCT 331 324 312 Chemistry Recent Labs 10/20/18 1557 10/21/1830910/21/18 1335 10/22/1831410/23/18 0325 NA -- < > 150* 149* [...] in dextrose 5% (D5W) 250 mL IVPB ([id number]) 1 g Intravenous Q12H* vancomycin, pharmacy to manage 1 each Service Per Pharmacy Start Date of Vancomycin therapy: 10/20/2018 White Blood Cells Date/Time Value Ref Range Status 10/22/2018 0315 16.3 (H) 4.5 - 11.0 [...] participate in meaningful therapy. Therapist: Elenita Butler, OT Date: 10/22/2018 * Marleen Ponce RN - [...] wound infection as below -10/16 presented to [facility] with a few days of fever, cough [...] empyema. Concern for bilateral LE wound infection, [facility] Bilateral vein harvest sites on lower extremities from CABG in [facility], 07/2018 Multiple cultures in [facility]. 09/07/18- Culture from R leg incision - [...] This is targeting LE infections, not the ELECTRONIC VIDEO GAMES SERVICER infection. ELECTRONIC VIDEO GAMES SERVICER infection likely S pneumo which is well [...] by me as necessary. Benny Sepulveda MD Plant Culture Manager Division of Infectious Diseases Interval History Etelvina Alonso is a 58 y.o. female with a PMH significant for CABG (07/2018) who presented to [facility] in [facility] on 10/16/18 after noting worsening cough and sternal pain from recent sternotomy and non-healing LE graft sites. Transferred to [facility] on 10/19/18 for right temporal lobe intraparenchymal air and edema seen on CTA. Remains intubated, sedated. Leukocytosis improved. Afebrile overnight WBC 16.3 Cr 0.47 Unable to complete ROS due to pt mental status Antimicrobial Start date End date Cefepime 300 mg PO BID 10/16/18 10/18/18 Ceftriaxone 10/18/18 10/20/18 Cefedinir 09/23/18 SUPERVISOR SAFETY DEPOSIT, uncertain timeframe Doxycycline 100 mg PO BID 09/06/18 SUPERVISOR SAFETY DEPOSIT, uncertain timeframe [id number] mg PO BID 08/23/18 SUPERVISOR SAFETY DEPOSIT, uncertain timeframe Fluconazole 150 mg PO QD 08/17/18 SUPERVISOR SAFETY DEPOSIT, uncertain timeframe Vancomycin 10/20/18 active Ampicillin 10/20/18 10/20/18 Fluconazole 10/20/18 active Oseltamivir 10/21/18 active Meropenem 10/20/18 active Bactrim 08/17/18 SUPERVISOR SAFETY DEPOSIT, uncertain timeframe Estimated Creatinine Clearance: 73.9 mL/min [...] in dextrose 5% (D5W) 250 mL IVPB (Vtre0Hwv) 1 g Intravenous Q12H* Continuous Infusions: propofol (DIPRIVAN) 10 mg/mL IV infusion 35 mcg/kg/min (10/22/18 0701) sodium chloride 0.45 % infusion 50 mL/hr at 10/21/18 0611 PRN and Respiratory Meds:acetaminophen Q6H PRN, calcium gluconate IV PRN (Auto Slip Cover Installer from Rx) AND Ionized Calcium PRN AND Notify Physician Ongoing, fentaNYL citrate PF Q2H PRN, ipratropium/albuterol Q4H PRN, magnesium sulfate PRN AND Magnesium PRN AND Notify Physician Ongoing, oxyCODONE Q4H PRN, pancrelipase 20,000 Units/ sodium bicarbonate 650 mg(#) PRN (Auto Slip Cover Installer from Rx), potassium chloride SR PRN OR [...] ET tube; [facility] Recent Labs 10/19/18233510/20/188 10/21/18 0310 10/22/18 0315 WBC 13.0* 14.2* 18.6* 16.3* HGB 9.8* 9.4* 9.4* 9.3* HCT 29.4* 28.4* 27.9* 28.2* PLTCT 299 291 331 324 INR 1.0 -- -- -- Chemistry Recent Labs 10/19/18 23310/20/18 0338 10/20/18 1117 10/20/18 1557 10/21/18 0310 [...] intraparenchymal air and surrounding edema. Transferred to [facility] for escalation of care. Hospital and ICU course: 10/19: [facility] Neuro: Altered mental status: encephalopathic vs [...] goal: < 160 MAP goal > 65 SUPERVISOR SAFETY DEPOSIT metoprolol, amiodarone - SUPERVISOR SAFETY DEPOSIT lisinopril on hold SUPERVISOR SAFETY DEPOSIT atrovastatin and ASA - SUPERVISOR SAFETY DEPOSIT plavix on hold Echo today: 35-40%, mitral valve borderline prolapse and regurg no vegetations Respiratory: RUL Pneumonia Date of Intubation: 10/17 Reason: Airway protection V/AC: - CXR: Increased lung volumes with persistent patchy mixed alveolar and interstitial opacities, which may represent pneumonia and/or edema. SUPERVISOR SAFET[employer] DEPOSIT budesonide resumed Influenza - PaO2 goal >100, [...] from admit at OSH with Cr 1.10 3 Intake/Output Summary (Last 24 hours) at 10/22/2018 0704 Last data filed at 10/22/2018 0700 Gross per 24 hour Intake 3217.99 ml Output 930 ml Net 2287.99 ml Aim for normovolemia Endocrine: Serum glucose 175 - Trend on daily BMP - Blood glucose goal 100-180mg/dl FEN: IVF: None 3 K 3.2 Mg 1.9 Phos 2.8 iCal 1.[address] Magnesium goal >2.0, i-Earl goal > 1.0, Potassium goal >4.0 mEq/L Prophylaxis Review: A)GI: [id number] B) Lines: Yes; Central Line; Indication: Frequent [...] atrial fibrillation (HCC) Pneumothorax tripped over a Biscotti toy, had a pneumothorax, had lung surgery in hospital at [facility] Restless leg syndrome Past Surgical History: Procedure Laterality Date HX CORONARY ARTERY BYPASS GRAFT HYSTERECTOMY OOPHORECTOMY ORTHOPEDIC SURGERY ligament repair in december 2017 VASCULAR SURGERY Family History Problem Relation Age of Onset Psoriasis Sister Heart Attack Sister maker 95% blocked s/p stenting Diabetes Sister Heart Disease Brother AR in s, with several stents Social History Social History Narrative Has 2 children and 2 grandchildren Son lives in [place] She is , to [place], for 30 years 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 Shawnee coma score: 7+T E: 2 - Opens [...] stimulus. Attempts to kick in direction of serology technician. Sensory: appears intact Coordination: Deferred DTRs: [...] procedures reviewed. Pankaj Bunn MD Date: 10/22/[phone] Associated attestation - Farhad Perez MD - 10/23/2018 12:05 AM CDT NEICU Attending Rollout Manager Attestation Etelivna Alonso is a 58 y.o. y.o. female [...] (10/22 699) Temp: 37.3 C (99.2 F) (10/220) Pulse: 123 (10/22 699) Respirations: 48 PER [...] or concerns. Juvenal Gottlieb MD Otolaryngology Resident, [phone] * Kelton Zelaya MD - 10/21/2018 10:52 [...] complicated PMHx including CAD s/p CABG in [place] in July 2018 with a post-op course [...] possible infection, so she was transferred to [facility] for further care. Of note, she has [...] to hypovolemia - We have her on /2 NS @ 50 mL/hr which we will [...] intraparenchymal air and surrounding edema. Transferred to [facility] for escalation of care. Hospital and ICU course: 10/19: Transferred from OSH to NEICU Neuro: Altered mental status: encephalopathic vs sepsis; [...] goal: < 160 MAP goal > 65 SUPERVISOR SAFETY DEPOSIT metoprolol, amiodarone resumed - SUPERVISOR SAFETY DEPOSIT lisinopril on hold SUPERVISOR SAFETY DEPOSIT atrovastatin and ASA resumed - SUPERVISOR SAFETY DEPOSIT plavix on hold Echo today: 35-40%, mitral valve borderline prolapse and regurg no vegetations Respiratory: RUL Pneumonia Date of Intubation: 10/17 Reason: Airway protection V/AV: - CXR: Increased lung volumes with persistent patchy mixed alveolar and interstitial opacities, which may represent pneumonia and/or edema. SUPERVISOR SAFETY DEPOSIT budesonide resumed - PaO2 goal >100, Spo2 [...] Blood glucose goal 100-180mg/dl FEN: IVF: None 3/8 K 3.2 Mg 1.9 Phos 2.8 iCal 1.[address] Magnesium goal >2.0, i-Earl goal > 1.0, Potassium goal >4.0 mEq/L Prophylaxis Review: A)GI: [id number] B) Lines: Yes; Central Line; Indication: Frequent [...] a pneumothorax, had lung surgery in hospital [facility] Restless leg syndrome Past Surgical History: Procedure Laterality Date HX CORONARY ARTERY BYPASS GRAFT HYSTERECTOMY OOPHORECTOMY ORTHOPEDIC SURGERY ligament repair in december 2017 VASCULAR SURGERY Family History Problem Relation Age of Onset Psoriasis Sister Heart Attack Sister maker 95% blocked s/p stenting Diabetes Sister Heart Disease Brother AR in , with several stents Social History Social History Narrative Has 2 children and 2 grandchildren Son lives in [place] She is , to [place], for 30 years 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 Attempts to kick in direction of serology technician. Sensory: appears intact Coordination: Deferred DTRs: [...] procedures reviewed. Pankaj Bunn MD Date: 10/21/[phone] * Karen Duval RN - 10/21/2018 7:10 AM CDT I have reviewed the notes, assessment, and/or procedures performed by Saba Buck and concur with her/his documentation unless otherwise noted. * Russ Lopez RN - 10/20/2018 3:00 PM CURTAIN DRIER Significant motion during scanning, 25 mcg of Fentanyl administered. Continuing with imaging, AIN DRIER * Russ Lopez RN - 10/20/2018 2:33 PM CURTAIN DRIER significant motion during imaging, Propofol infusion rate increased with minimal effect, Fentanyl 50 mcg, administered as per PRN orders, AIN DRIER * Sudha Quan, PT - 10/20/2018 1:36 PM CURTAIN DRIER PHYSICAL THERAPY NOTE Physical therapy orders received and appreciated. Chart reviewed and discussed patient status with bedside RN. Per RN, patient currently intubated and sedated ; not appropriate for purposeful PT evaluation at this time. PT will follow up as able and provide evaluation/treatment as indicated. Therapist: Sudha Quan PT, DPT Date: 10/20/2018 AIN DRIER * Aline Sneed, OT - 10/20/2018 1:36 PM CURTAIN DRIER OCCUPATIONAL THERAPY NOTE OT orders received and appreciated. Chart reviewed and discussed status with RN. Per RN, patient currently intubated and sedated; not appropriate for purposeful OT evaluation at this time. OT will follow up as indicated to provide evaluation/treatment. Therapist: Aline Sneed, DALILAR/L [id number] Date: 10/20/2018 AIN DRIER * Russ Lopez RN - 10/20/2018 1:35 PM CURTAIN DRIER 1300 - Assumed care, travelled with pt to CT/MRI, vented, sedated, monitored, restrained, accompanied by this nurse, Howard TOLLIVER, tolerated well. 1335 - CT completed, transferred to MRI table, no adverse events, monitoring in place, Imaging in progress. AIN DRIER * Elsy Luke, MACIED - 10/20/2018 9:51 AM CURTAIN DRIER Pharmacy Vancomycin Note Subjective: Etelvina Alonso is a 58 y.o. female being treated for cerebritis. Objective: Current Vancomycin Orders Medication Dose Route Frequency vancomycin (VANCOCIN) 1,000 mg in sodium chloride 0.9% (NS) 250 mL IVPB ( [id number]) 1 g Intravenous ONCE Followed by vancomycin [...] therapy as needed. Elsy Luke, PHARMD 10/20/2018 AIN DRIER * Magali Patel RN - 10/20/2018 8:00 AM CURTAIN DRIER MD Sepideh, with [facility] notified of pt's Left pupil>right pupil at 0800 assessment. MD at bedside to assess. Orders to continue to monitor and assess. AIN DRIER * Karen Duval RN - 10/20/2018 6:36 AM CURTAIN DRIER I have reviewed the notes, assessment, and/or procedures performed by Saba Buck and concur with her/his documentation unless otherwise noted. AIN DRIER * Pankaj Bunn MD - 10/20/2018 6:23 AM CURTAIN DRIER Neuro Critical Care Progress Etelvina Alonso Admission [...] intraparenchymal air and surrounding edema. Transferred to [facility] for escalation of care. Hospital and ICU course: 10/19: Transferred from OSH to NEICU Neuro: Altered mental status: encephalopathic vs sepsis; Small R Temporal lobe intraparenchymal air CT head 10/20: Concerning for possible cerebritis Skull base MRI brain CT temporal lube Q1 neurochecks PT/OT Sedation/Pain Management: Propofol PRN fentanyl, oxycodone and tylenol available - Assess for delirium daily Cardiac: HTN; HLD; CAD s/p CABG in 07/2018; Paroxysmal AF SBP goal: < 160 MAP goal > 65 SUPERVISOR SAFETY DEPOSIT metoprolol, amiodarone resumed - SUPERVISOR SAFETY DEPOSIT lisinopril on hold SUPERVISOR SAFETY DEPOSIT atrovastatin and ASA resumed - SUPERVISOR SAFETY DEPOSIT plavix on hold Echo today Respiratory: RUL Pneumonia Date of Intubation: 10/17 Reason: Airway protection V/AV: - CXR: Increased lung volumes with persistent patchy mixed alveolar and interstitial opacities, which may represent pneumonia and/or edema. SUPERVISOR SAFETY DEPOSIT budesonide resumed - PaO2 goal >100, Spo2 [...] Potassium goal >4.0 mEq/L Prophylaxis Review: A)GI: [id number] B) Lines: Yes; Central Line; Indication: Frequent [...] (10/20 599) Temp: 37.8 C (100.1 F) (10/20 0400) Pulse: 117 (10/20 599) Respirations: 22 PER [...] at 10/20/2018622 Last data filed at 10/20/2018 06 Gross per 24 hour Intake 751.59 ml Output 355 ml Net 396.59 ml Physical Exam: Blood pressure 131/67, pulse 117, temperature 37.8 C (100.1 F), height 162.6 cm (64"), weight 54.1 kg (119 lb 4.3 oz), SpO2 98 %. Shawnee coma score: 7+T E: 2 - Opens [...] stimulus. Attempts to kick in direction of serology technician. Sensory: appears intact Coordination: Deferred DTRs: [...] procedures reviewed. Pankaj Bunn MD Date: 10/20/[phone] AIN DRIER Associated attestation - Kelton Zelaya MD - 10/20/2018 9:58 PM CURTAIN DRIER I have seen, personally fully evaluated, and [...] complicated PMHx including CAD s/p CABG in [place] in July 2018 with a post-op course [...] possible infection, so she was transferred to [facility] for further care. Of note, she has [...] today ET Tube, R IJ central line, Umm * Saba Buck - 10/20/2018 2:55 AM CURTAIN DRIER Patient arrived to room #[id number] via bed [...] Doc Flowsheet for additional wound details. INTERVENTIONS: AIN DRIER documented in this encounter H&P Notes * Divine, RadhaSEMAJ strange ANP-BC - 11/01/2018 9:29 AM CDT Interventional Radiology Consult Note with Pre-procedural History and Physical Admission Date: 10/19/2018 LOS: 13 days Active Problems: Pneumonia due to infectious organism Acute respiratory failure with hypoxia and hypercapnia (HCC) Altered mental status, unspecified Paroxysmal atrial fibrillation (HCC) Pneumocephalus Cerebritis Influenza A Abscess of brain Reason for consult: Pt with trach and need for rat exterminator PO access. Assessment: Corpak in place. Plan: [...] with any questions or concerns. Radha Arango APRN, ANP-BC Pgr [phone] IR Team Pager [phone] (After-hours and Weekends) Procedure Date: 11/01/2018 Procedure: GJ tube placement. IR Pre Procedure Notes: Consent in chart. Chief Complaint: Dysphagia. Previous Anesthetic/Sedation History: Reviewed. History of present illness: Etelvina Alonso is a 58 y.o. female patient with PMH influenza, pneumonia, and brain abscess who is now in need of care home PO access. Review of Systems Constitutional: negative [...] Meds:acetaminophen Q4H PRN, calcium gluconate IV PRN (Auto Slip Cover Installer from Rx) AND Ionized Calcium PRN AND Notify Physician Ongoing, fentaNYL citrate PF Q1H PRN, ipratropium/albuterol Q4H PRN, magnesium sulfate PRN AND [CANCELED] Magnesium PRN AND Notify Physician Ongoing, oxyCODONE Q4H PRN, pancrelipase 20,000 Units/ sodium bicarbonate 650 mg(#) PRN ( Auto Slip Cover Installer from Rx), potassium chloride SR PRN OR potassium chloride PRN Objective Vital Signs: Last Filed Vital Signs: 24 Hour Range BP: 130/100 (11/02 799) Temp: 37.2 C (99 F) (11/02 799) Pulse: 109 (11/01 904) Respirations: 25 PER MINUTE (11/01 904) SpO2: 100 % (11/01 904) O2 Delivery: Tracheal Tube (11/01 07) SpO2 Pulse: 109 (11/01 904) BP: (92-158)/(42-100) [...] 4.5 MG/DL Radiology: Reviewed. * Lorena Rockwell, MSN,LOOM REPAIRER - 10/19/2018 8:07 PM CURTAIN DRIER Neuro Critical Care History and Physical Etelvina [...] intraparenchymal air and surrounding edema. Transferred to [facility] for escalation of care. Hospital and ICU course: 10/19: [facility] Neuro: Altered mental status: encephalopathic vs sepsis; Small R Temporal lobe intraparenchymal air CT head at 400 Q1 neurochecks PT/OT - CONTINUOUS IMPROVEMENT LEAD once extubated and more appropriate - Neuro-ICU [...] goal: < 160 MAP goal > 65 SUPERVISOR SAFETY DEPOSIT metoprolol, amiodarone resumed - SUPERVISOR SAFETY DEPOSIT lisinopril on hold SUPERVISOR SAFETY DEPOSIT atrovastatin and asa resumed - SUPERVISOR SAFETY DEPOSIT plavix on hold Echo pending to r/o infectious source ECG with sinus tachycardia Respiratory: RUL Pneumonia Date of Intubation: 10/17 Reason: Airway protection MMV: - CXR: - ABG: SUPERVISOR SAFETY DEPOSIT budesonide resumed - PaO2 goal >100, Spo2 [...] output data in the 24 hours ending 10/19/182213 Aim for normovolemia Endocrine: Serum glucose 105 - Trend on daily BMP - Blood glucose goal 100-180mg/dl FEN: IVF: None 10/19 K 3.2 Mg 1.9 Phos 2.8 iCal 1.[address] Magnesium goal >2.0, i-Earl goal > 1.0, Potassium goal >4.0 mEq/L Prophylaxis Review: A)GI: [id number] B) Lines: Yes; Central Line; Indication: Frequent [...] felt it necessary to facilitate transfer to [facility] for escalation of care. Past Medical History: [...] data in the 24 hours ending 10/19/18 1604 Physical Exam: There were no vitals taken for this visit. Daily coma score: 7+T E: 2 - [...] stimulus. Attempts to kick in direction of serology technician. Sensory: appears intact Coordination: Deferred DTRs: [...] of care with consulted teams Lorena Rockwell, MSN,LOOM REPAIRER Date: 10/19/[phone] AIN DRIER documented in this encounter Consult Notes * [...] Moist;Red 10/25/2018 12:30 PM Surrounding Skin Assessment Intact;Foristell 10/25/2018 12:30 PM Wound Status (Wound Team [...] to area BID and PRN soiling per direct care staffer. Continue Q2hr turning schedule using foam wedge for support. Apply offloading boots to bilateral heels for additional pressure ulcer prevention. Will continue to follow. Olimpia Louise RN, BSN, CMSRN, CWON Wound Ostomy Nursing Consult Service Office: [phone] Pager: [phone] After Hours Wound/Ostomy Team Pager: [phone] * Leah Pak PA-C - 10/25/2018 9:47 AM CDT Associated Order(s): CONSULT CARDIOTHORACIC SURGERY PHYSICIAN CTS CONSULT Date of Service: 10/25/2018 Requesting Physician: Lorena Rockwell MD Consulting Physician: Miguel Angel Odonnell MD Consult Performed By: Leah Pak PA-C HPI: Etelvina Alonso is a 58 y.o. female with history of HTN, HLD, no nhealing leg wounds, CAD s/p CABG in 07/2018 in [place] who presented to an OSH on 10/16 [...] and will further evaluate. Leah Pak PA-C [phone] Past Medical History: Diagnosis Date Arthritis Asthma CAD (coronary artery disease) COPD (chronic obstructive pulmonary disease) (HCC) Depression Disruption or dehiscence of closure of sternum or sternotomy Edentulous 2016 Poor dentition Endometriosis Hyperlipidemia Hypertension, essential Non-healing wound of lower extremity Paroxysmal atrial fibrillation (HCC) Pneumothorax tripped over a kraig toy, had a pneumothorax, had lung surgery in hospital at [facility] Restless leg syndrome Past Surgical History: Procedure [...] s/p stenting Diabetes Sister Heart Disease Brother AR in s, with several stents Social History [...] children and 2 grandchildren Son lives in [place] She is , to [place], for 30 years 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 Physical Exam: Temp: 37 C (98.6 F) (10/26 0700) Pulse: 76 (10/25 806) Respirations: 28 PER MINUTE (10/25 806) BP: 107/57 (10/26 799) GENERAL: Intubated. Shakes head in response to [...] with her critical care team. * Olimpia Louise RN - 10/22/2018 11:30 AM CDT Associated [...] surrounding edema. Wounds (NOT for Pressure Injuries) 10/19/18 2330 Right Leg Surgical Incision ( Active) 10/19/18 2330 Leg Wound Orientation: Right Wound Type: Surgical Incision Wound Type:: Wound Description (Comments): Dehiscence from prior surgery Wound Image 10/22/2018 11:00 AM Agree With My Assessment? Yes 10/22/2018 12:00 PM Wound Base Assessment Dry;Eschar 10/22/2018 11:00 AM Surrounding Skin Assessment Foristell 10/22/2018 11:00 AM Wound Site Closure Open [...] 3 Wounds (NOT for Pressure Injuries) 10/19/18 2330 Left;Upper Leg Surgical Incision (Active) 10/19/18 2330 Leg Wound Orientation: Left;Upper Wound Type: Surgical Incision Wound Type:: Wound Description (Comments): Dehiscence from prior surgery Wound Image 10/22/2018 11:00 AM Agree With My Assessment? Yes 10/22/2018 12:00 PM Wound Base Assessment Dry;Eschar;Mak;Foristell 10/22/2018 11:00 AM Surrounding Skin Assessment Intact [...] CWON Wound Ostomy Nursing Consult Service Office: [phone] Pager: [phone] After Hours Wound/Ostomy Team Pager: [phone] * Adrianne Valenzuela - 10/21/2018 10:29 AM CDT Associated Order(s): CONSULT DIETITIAN CLINICAL NUTRITION Clinical Nutrition Assessment Summary NAME:Etelvina Alonso :1960 AGE: 58 y.o. ADMISSION DATE: 10/19/2018 DAYS ADMITTED: LOS: 2 days Nutrition Assessment of Patient: BMI Categories Adult: Acceptable: 18.5-24.9 Malnutrition Assessment: (pending subjective information) Current Oral Intake: NPO Estimated Calorie Needs: 1895-4960 kcal(25-30 kcal/kg per present wt 52.8kg) Estimated [...] intraparenchymal air and surrounding edema. Transferred to [facility] for escalation of care. Pt remains intubated [...] If patient extubated, recommend diet textures per CONTINUOUS IMPROVEMENT LEAD recs with eventual goal diet of Cardiac [...] Within [address], LD *[phone] * Juvenal Gottlieb MD - 10/20/2018 7:01 PM CURTAIN DRIER Associated Order(s): CONSULT OTOLARYNGOLOGY (ENT) PHYSICIAN Otolaryngology [...] additional questions. Juvenal Gottlieb MD Otolaryngology Resident, 0901 Reason for consult: Concern for otomastoiditis on imaging History of Present Illness: Etelvina Alonso is a 58 y.o. female with complex medical history which began and 2017 after a CABG which was performed in [facility]. The patient presented to outside hospital on October 16 in [facility] due to worsening sternal pain, cough and nonhealing wounds from bilateral vein harvesting site. She is initially admitted to the hospital and her pulmonary status and mental status worsened requiring a transfer to the ICU with intubation. CTA head was performed on October 19 and demonstrated pneumocephalus. The patient was then transferred to [facility] for escalation of care. 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 Family history reviewed; non-contributory Allergies: [...] Meds:acetaminophen Q6H PRN, calcium gluconate IV PRN (Auto Slip Cover Installer from Rx) AND Ionized Calcium PRN AND [...] Signs: 24 hour Range BP: 127/66 (10/20 1800) Temp: 37.3 C (99.2 F) (10/20 1600) Pulse: 107 (10/20 1800) Respirations: 21 PER MINUTE (10/20 1800) SpO2: 100 % (10/20 1800) O2 Delivery: Endotracheal Tube (Oral) (10/20 1800) [...] Sat-Arterial 92.5 (L) 95 - 99 % Efgvfpuhsop-ARM-Jiv 26.7 21 - 28 MMOL/L CULTURE-RESP,LOWER W/SENSITIVITY [...] O2 Sat-Arterial 97.7 95 - 99 % Topyqoskvxi-RRT-Xjv 27.9 21 - 28 MMOL/L ACETAMINOPHEN LEVEL [...] MS changes last Monday and then itnubated [facility] anil. Tx for multiple medicla issues. COncern on imaging for possible tegmen dehgiscence and left cerebral empyema ?NS doubts and cerebritis on R and fluid R>L ME and sphenoid encephalocele. Also active influenza and poor healing wounds s/p CABG in [place]. Scans reviewed Alert, NAD Head: Normocephalic/atraumatic intubated [...] no palpable thyroid masses, no cutaneous changes potato sorter: Could not test due to sedation Probable [...] Benny Sepulveda MD - 10/20/2018 9:48 AM CURTAIN DRIER Associated Order(s): CONSULT INFECTIOUS DISEASES PHYSICIAN Infectious Diseases Initial Consult Today's Date: 10/20/2018 Admission Date: 10/19/2018 Assessment: Strep pneumo bacteremia Bilateral LE wounds due to CABG vein harvest, both tracking deep, L with purulent drainage Pneumocephalus with surrounding edema on CTA head 10/19/18 at OSH Possible HCAP Acute hypoxic/hypercarbic respiratory failure -Past concern for biliateral LE wound infection as below -10/16 presented to [facility] with a few days of fever, [...] pending Concern for bilateral LE wound infection, [facility] Bilateral vein harvest sites on lower extremities from CABG in [facility], 07/2018 Multiple cultures in [facility]. 09/07/18- Culture from R leg incision - [...] from the original version. Benny Sepulveda MD Plant Culture Manager Division of Infectious Diseases D/W OLIVER attending, Dr. Zelaya History of Present Illness Etelvina Alonso is a 58 y.o. Female PMH significant for CABG [facility] in 07/2018 who presented to an [facility] after noting worsening cough and stenral pain [...] days prior to admission Cultures from [facility]: Blood culture 10/16 x2: Strep Pneumo R- [...] leg pseudomonas R-Aztreonam, sensitive PCP: Akbar fonseca [phone] Sister demetra Antimicrobial Start date End date Cefepime 300 mg PO BID 10/16/18 10/18/18 Ceftriaxone 10/18/18 10/20/18 Cefedinir 09/23/18 SUPERVISOR SAFETY DEPOSIT, uncertain timeframe Doxycycline 100 mg PO BID 09/06/18 SUPERVISOR SAFETY DEPOSIT, uncertain timeframe Abmhsdoxanc560 mg PO BID 08/23/18 SUPERVISOR SAFETY DEPOSIT, uncertain timeframe Fluconazole 150 mg PO QD 08/17/18 SUPERVISOR SAFETY DEPOSIT, uncertain timeframe Vancomycin 10/20/18 active Ampicillin 10/20/18 10/20/18 Fluconazole 10/20/18 active Meropenem 10/20/18 active Bactrim 08/17/18 SUPERVISOR SAFETY DEPOSIT, uncertain timeframe Estimated Creatinine Clearance: 75.6 mL/min [...] atrial fibrillation (HCC) Pneumothorax tripped over a Biscotti toy, had a pneumothorax, had lung surgery in hospital at [facility] Restless leg syndrome Past Surgical History [...] children and 2 grandchildren Son lives in [place] She is , to Leonidas, for 30 years 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, 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[place], 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 Family History Family History Problem Relation Age of Onset Psoriasis Sister Heart Attack Sister maker 95% blocked s/p stenting Diabetes Sister Heart Disease Brother [place] in , with several stents Allergies No Known Allergies [...] chloride 0.9% (NS) 250 mL IVPB ( [id number]) 1 g Intravenous ONCE Followed by vancomycin (VANCOCIN) 750 mg in D5W 150mL IVPB (premade) 15 mg/kg Intravenous Q12H* Continuous Infusions: propofol (DIPRIVAN) 10 mg/mL IV infusion 20 mcg/kg/min (10/20/18 1040) PRN and Respiratory Meds:acetaminophen Q6H PRN, calcium gluconate IV PRN (Auto Slip Cover Installer from Rx) AND Ionized Calcium PRN AND Notify Physician Ongoing, fentaNYL citrate PF Q2H PRN, ipratropium/albuterol Q4H PRN, magnesium sulfate PRN AND Magnesium PRN AND Notify Physician Ongoing, oxyCODONE Q4H PRN, potassium chloride SR PRN OR potassium chloride PRN, [DISCONTINUED] vancomycin IVPB Q8H* AND vancomycin, pharmacy to manage Per Pharmacy Physical Examination Vital Signs: Last Vital Signs: 24 Hour Range BP: 133/75 (10/20 1099) Temp: 38.3 C (100.9 F) (10/20 0800) Pulse: 120 (10/20 1099) Respirations: 22 PER MINUTE (10/20 1099) SpO2: 98 % (10/20 1099) O2 Delivery: Endotracheal Tube (Oral) (10/20 1099) SpO2 Pulse: 119 (10/20 1099) Height: 162.6 cm (64") (10/20 1010) BP: [...] ETT PIV Lab Review Hematology Recent Labs 10/19/18 2336 10/20/18 0338 WBC 13.0* 14.2* HGB 9.8* 9.4* HCT 29.4* 28.4* PLTCT 299 291 INR 1.0 -- Chemistry Recent Labs 10/19/18 2336 10/20/18 0338 NA 144 146 K 3.2* 3.9 [...] hypoxic/hypercarbic resp failure, S pneumo bacteremia, 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 I spent 50 minutes personally reviewing the patient's vital signs, critical care flowsheets, labs, imaging studies, and clinical status, as well as examining the patient and providing recommendations regarding management including further diagnostic testing and antimicrobial therapy. AIN DRIER documented in this encounter ED Notes * Sydni Corcoran RN - 11/03/2018 2:17 PM CDT Report given to [facility] and [facility] transport. All pt belongings in the care of . documented in this encounter Miscellaneous Notes * Case Mgmt DC Plan - Misa Herman - 11/03/2018 12:26 PM CDT PUBLIC ADMINISTRATION TEACHER NOTE Transfer packet delivered to pt's chart unit per the request of Shelby Espitia [facility]. Misa Herman CMA * Case Mgmt DC Plan - Shelby Espitia - 11/03/2018 10:21 AM CDT Case Management Progress NoteNAME:Etelvina Alonso :1960 AGE: 58 y.o. ADMISSION DATE: 10/19/2018 DAYS ADMITTED: LOS: 15 days Todays Date: 11/03/2018 Plan [facility]C [facility] via [facility] at 1400 Interventions ? Support [...] Psych discharges only) ? Discharge Disposition W/E SW reviewed EMR and discussed POC with team, per team pt stable for d/c. SHORTY spoke with Jessica [phone] in admissions with [facility] who verified facility is able to accept pt today. Jessica would like for [facility] to transport pt from [facility] at 1400. SHORTY spoke with pt's spouse Leonidas [phone] who verified he is aware of d/c plan for today and does not have any questions regarding d/c plan. SHORTY spoke with [facility] and arranged Vent transport with heart monitoring (per MD d/t concern for tachycardia) for 1400. SHORTY made RN and team aware of final d/c plan. SHORTY tasked PUBLIC ADMINISTRATION TEACHER to create transfer packet. SW completed PCS form. SW to fax d/c orders to [phone] once completed. RN please call report to [phone]. Durable Medical Equipment No service has been selected for the patient. Destination - Selection Complete Service Provider Request Status Selected Services Address Phone Number Fax Number [facility] Selected Integrated Program Teacher Acute Care [address] [place] [address] [phone] Home Care No service has been selected [...] or Referral ? Discharge Planning Discharge Planning: [facility] Covering Sw discussed pt with team. Pt is on [...] Number [facility] Selected Detention Acute Care [address] [place] [address] [phone] Home Care No service has been selected [...] Post-Procedure Condition: unchanged Randall Broussard MD Pager [phone] * Case Mgmt DC Plan - Ellen Frederick - 11/01/2018 10:22 AM CDT Case Management Progress NoteNAME:Etelvina Alonso :1960 AGE: 58 y.o. ADMISSION DATE: 10/19/2018 DAYS ADMITTED: LOS: 13 days Todays Date: 11/01/2018 Plan Anticipate d/c [facility] tomorrow vs Monday pending pt stability and insurance auth. Interventions SW reviewed EMR and met with Neuro team. Anticipate Peg today. Anticipate trach downsize tomorrow. ? Support Support: Pt/Family Updates re:POC or DC Plan ? Info or Referral ? Discharge Planning Discharge Planning: [facility] SHORTY sent updated clinicals including copy of pt's insurance cards to [facility]. SHORTY spoke with Mila at [facility] to update. Mila educated that they will [...] for the patient. Ellen Frederick LMSW Phone: [phone] Pager: *[phone] * Case Mgmt DC Plan - Ellen Frederick - 10/31/2018 8:40 AM CDT Case Management Progress NoteNAME:Etelvina Alonso :1960 AGE: 58 y.o. ADMISSION DATE: 10/19/2018 DAYS ADMITTED: LOS: 12 days Todays Date: 10/31/2018 Plan Anticipate d/c to [facility] on Monday pending pt stability, facility acceptance, and insurance auth. Interventions SW reviewed EMR and met with Neuro team. Anticipate trach downsize on Monday. ENT following. ? Support Support: Pt/Family Updates re:POC or DC Plan ? Info or Referral ? Discharge Planning Discharge Planning: [facility] SHORTY spoke with Mila at [facility] to check status of referral. Mila educated that they have clinically accepted for admission and will likely submit for insurance auth tomorrow to aide in tentative admission on Monday. Update 4:00pm: SHORTY spoke with Mila at [facility] and they will need a copy of pt's insurance card. SHORTY spoke with pt's Nolan ([phone]) to request copy of pt's insurance card. [...] for the patient. Ellen Frederick LMSW Phone: [phone] Pager: [phone] * Anesthesia Post Op Day 1 - [...] Filed in 24 hours) BP: 90/47 (10/30 899) Temp: 37.2 C (98.9 F) (10/30 0800) Pulse: 56 (10/30 0800) Respirations: 21 PER MINUTE (10/30 899) SpO2: 100 % (10/30 0825) O2 Delivery: Tracheal Tube (10/30 699) SpO2 Pulse: 56 (10/30 0300) Patient History [...] Meds:acetaminophen Q4H PRN, calcium gluconate IV PRN (Auto Slip Cover Installer from Rx) AND Ionized Calcium PRN AND Notify Physician Ongoing, fentaNYL citrate PF Q1H PRN, ipratropium/albuterol Q4H PRN, magnesium sulfate PRN AND [CANCELED] Magnesium PRN AND Notify Physician Ongoing, oxyCODONE Q4H PRN, pancrelipase 20,000 Units/ sodium bicarbonate 650 mg(#) PRN ( Auto Slip Cover Installer from Rx), potassium chloride SR PRN OR [...] or Referral ? Discharge Planning Discharge Planning: [facility] SHORTY left message for Mila at [facility] to update. SHORTY sent updated clinicals to [facility]. ? Medication Needs ? Financial ? [...] for the patient. Ellen Frederick LMSW Phone: [phone] Pager: *[phone] * Procedures (Immed Post or Bedside) - [...] ICU - stable Yessica Burris MD Pager [phone] * Operative Report (Direct Entry) - Duy [...] MD 10/29/2018 1525 Yessica Burris MD Pager [phone] * Case Mgmt DC Plan - Jaymie [...] or Referral ? Discharge Planning Discharge Planning: [facility] [place] SW assisting primary SW, Ellen Frederick, with ongoing d/c planning. SW reviewed EMR for poc update and discussed [...] but is not always easy to reach. SW staff will continue to follow for ongoing d/c planning and support, with anticipated Lt[facility] placement. 14:15 -- SW notified by RN that spouse has returned to bedside. SHORTY met with spouse, explained SW role, and discussed anticipated Ltach placement once pt was medically stable. SW provided pt's spouse with an Ltach list for review. 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 Spouse reports he started a new job in [place], [place], and indicates he will have to report back to his job site in [place] in the next day or two. Pt's spouse reports he obtained a new cell phone, and will be available for ongoing d/c planning at the number listed above -- SW updated Facesheet with spouse's new contact information. Spouse reports preference for [facility] is currently [facility]. SHORTY sent initial referral for review. ? Medication [...] selected for the patient. Katelynn Child LMSW, [facility] [phone] * Case Mgmt DC Plan - Natalia Spence - 10/26/2018 1:01 PM CDT Case Management Progress NoteNAME:Etelvina Alonso :1960 AGE: 58 y.o. ADMISSION DATE: 10/19/2018 DAYS ADMITTED: LOS: 7 days Todays Date: 10/26/2018 Plan DCP Ongoing: SHORTY anticipates pt to DC [facility] pending family agreement, insurance auth, and medical stability. Interventions ? Support Support: Pt/Family Updates re:POC or DC Plan Assisting SHORTY reviewed EMR, team gained consent form pt's spouse:Leonidas for Tympanomastoidectomy Monday. Pt currently on Q8 IV Cefepime and IV Fluconazole [id number] DC to [facility]ACH mid next week. ? Info or Referral ? Discharge Planning Discharge Planning: Long[facility] Acute Care [facility] No contact number provided for pt's spouse in demographics. SHORTY contacted pt' s emergency contact, sister: demetra [phone] and left requesting callback to discuss DCP. SHORTY also contacted pt's home phone number:[phone]-message indicated phone number is pt's cell phone-SW did not leave . UPDATE:[id number] SW received callback from Demetra who confirms [...] CDT Request for Benefits Received request from [facility] Ellen Frederick to check LTACH benefits [...] through the month of October. Barbara Mckeon School Bus Aide For further assistance please contact [facility] Ellen Frederick *[phone] * Procedures (Immed Post or Bedside) - [...] 15 mo old daughter all live in Demetra's ONE bedroom HUD housing apartment (since before XMas). Total of 6 people in one bedroom apartment sharing recliner, couch etc for housing/living arrangement. Patient owns DME of: RW, Nebulizer, toilet riser. Patient requires transportation and Demetra currently gaining access to her own son's car as he is incarcerated currently. NCM to pass assessment information to Primary CM team D/c dispo/planning ongoing Patient Address/Phone [address] [employer] [place] [address] (home) Emergency Contact Extended Emergency Contact Information Primary Emergency Contact: Demetra Pimentel Mobile Relation: Sister Statistical Technician needed? No Healthcare Directive Transportation Does the [...] Financial Resources ? Coverage Primary Insurance: Commercial insurance([facility]) ? Source of Income ? Financial Assistance Needed? Continue to assess Psychosocial Needs ? Mental Health Mental Health History: No ? Substance Use History Substance Use History Screen: Yes Comment: patient smokes 2 ppd x45 years ? Other na Current/Previous Services ? PCP Akbar Fonseca, , ? Pharmacy [facility] [address] [facility] [id number] [facility] [id number] ? Durable Medical Equipment Durable Medical Equipment [...] ? Outpatient Therapy PT: No OT: No CONTINUOUS IMPROVEMENT LEAD: No ? Long-Term Facility/Usp SNF: No NH: No ? Inpatient Rehab IPR: No ? Long-Term Acute Care Hospital [facility]: No ? Acute Hospital Stay Acute Hospital Stay: No Margo Smith RN Nurse Cement Side Laster * Case Mgmt DC Plan - Darcy [...] for the patient. Margo Smith RN Nurse Cement Side Laster documented in this encounter Plan of Treatment [...] VIRAL PANEL PCR Routine 10/20/2018 11:05 PM CURTAIN DRIER ABDOMEN AP ONLY Routine 10/20/2018 8:25 PM CURTAIN DRIER ABDOMEN AP ONLY Routine 10/20/2018 8:18 PM CURTAIN DRIER AMMONIA Routine 10/20/2018 3:57 PM CURTAIN DRIER LIVER FUNCTION PANEL Routine 10/20/2018 3:57 PM CURTAIN DRIER MRI HEAD WO/W CONTRAST STAT 10/20/2018 3:[address] LOWER EXTREM W CONT Routine 10/20/2018 BILAT 1:[address] INT AUD CANAL WO Routine 10/20/2018 CONTRAST 1:50 PM CURTAIN DRIER POTASSIUM Routine 10/20/2018 11:17 AM CURTAIN DRIER ACETAMINOPHEN LEVEL Routine 10/20/2018 11:17 AM CURTAIN DRIER 2-D + DOPPLER Routine 10/20/2018 ECHOCARDIOGRAM 10:08 AM CURTAIN DRIER BLOOD GASES, ARTERIAL Routine 10/20/2018 3:49 AM CURTAIN DRIER CBC AND DIFF Routine 10/20/2018 3:38 AM CURTAIN DRIER PHOSPHORUS Routine 10/20/2018 3:38 AM CURTAIN DRIER MAGNESIUM Routine 10/20/2018 3:38 AM CURTAIN DRIER IONIZED CALCIUM Routine 10/20/2018 3:38 AM CURTAIN DRIER BASIC METABOLIC PANEL Routine 10/20/2018 3:38 AM CURTAIN DRIER GRAM STAIN 10/20/2018 1:28 AM CURTAIN DRIER CULTURE-WOUND/TISSUE/FLUI Routine 10/20/2018 D(AEROBIC 1:28 AM CURTAIN DRIER ONLY)W/SENSITIVITY GRAM STAIN 10/20/2018 1:07 AM CURTAIN DRIER CULTURE-RESP,LOWER Routine 10/20/2018 W/SENSITIVITY 1:07 AM CURTAIN DRIER BLOOD GASES, ARTERIAL STAT 10/20/2018 1:[address] HEAD WO CONTRAST Routine 10/20/2018 12:45 AM CURTAIN DRIER CULTURE-BLOOD Routine 10/20/2018 W/SENSITIVITY 12:12 AM CURTAIN DRIER CULTURE-BLOOD Routine 10/20/2018 W/SENSITIVITY 12:11 AM CURTAIN DRIER CHEST SINGLE VIEW STAT 10/19/2018 11:45 PM CURTAIN DRIER PHENCYCLIDINES-URINE Routine 10/19/2018 RANDOM 11:36 PM CURTAIN DRIER OPIATES-URINE RANDOM Routine 10/19/2018 11:36 PM CURTAIN DRIER COCAINE-URINE RANDOM Routine 10/19/2018 11:36 PM CURTAIN DRIER CANNABINOIDS-URINE RANDOM Routine 10/19/2018 11:36 PM CURTAIN DRIER BENZODIAZEPINES-URINE Routine 10/19/2018 RANDOM 11:36 PM CURTAIN DRIER BARBITURATES-URINE RANDOM Routine 10/19/2018 11:36 PM CURTAIN DRIER AMPHETAMINES-URINE RANDOM Routine 10/19/2018 11:36 PM CURTAIN DRIER PROTIME INR (PT) STAT 10/19/2018 11:36 PM CURTAIN DRIER CBC AND DIFF STAT 10/19/2018 11:36 PM CURTAIN DRIER PHOSPHORUS STAT 10/19/2018 11:36 PM CURTAIN DRIER MAGNESIUM STAT 10/19/2018 11:36 PM CURTAIN DRIER LACTIC ACID(LACTATE) STAT 10/19/2018 11:36 PM CURTAIN DRIER IONIZED CALCIUM STAT 10/19/2018 11:36 PM CURTAIN DRIER COMPREHENSIVE METABOLIC STAT 10/19/2018 PANEL 11:36 PM CURTAIN DRIER TELEMETRY STRIPS-SCAN 10/19/2018 12:00 AM CURTAIN DRIER ECG-SCAN 10/19/2018 12:00 AM CURTAIN DRIER documented in this encounter Results * PHOSPHORUS (11/03/2018 5:42 AM CDT) Phosphorus 5.0 (H)Comment: NOTE NEW 2.0 - 4.5 MG/DL [facility] MAIN LAB REFERENCE RANGES Specimen Blood Performing Organization Address [facility]/Zipcode Phone Number MAIN LAB [address] [place] [address] * MAGNESIUM (11/03/2018 5:42 AM CDT) Magnesium 2.2 1.6 - 2.6 mg/dL [facility] MAIN [facility] Specimen Blood Performing Organization Address City/[facility] Centercode Phone Number MAIN LAB [address] [place] [address] * BASIC METABOLIC PANEL (11/03/2018 5:42 AM [...] >60 >60 mL/min [facility] MAIN LAB Comment: Maltese The eGFR is not validated for use in drug dosing adjustments.Continue to use estimated creatinine clearance per dosing reference text.Please contact the Clinical Pharmacist for questions. eGFR >60 >60 mL/min [facility] MAIN LAB Maltese Comment: The eGFR is not validated for use in drug dosing adjustments.Continue to use estimated creatinine clearance per dosing reference text.Please contact the Clinical Pharmacist for questions. Specimen Blood Performing Organization Address [facility] Centercode Phone Number MAIN LAB [address] [place] [address] * CBC (11/03/2018 5:42 AM CDT) White [...] Specimen Blood Performing Organization Address [facility] Centercode Phone Number MAIN LAB [address] [place] [address] * IONIZED CALCIUM (11/03/2018 5:42 AM CDT) Ionized Calcium 1.26 1.0 - 1.3 MMOL/L MAIN LAB Specimen Blood Performing Organization Address [facility] Cent[facility]ode Phone Number MAIN LAB [address] [place] [address] * PROCALCITONIN (11/02/2018 9:55 AM CDT) Procalcitonin 0.07 <0.10 NG/ML MAIN LAB Specimen Blood Performing Organization Address [facility] Cent[facility]ode Phone Number MAIN LAB [address] [place] [address] * PHOSPHORUS (11/02/2018 3:45 AM CDT) Phosphorus 4.4Comment: NOTE NEW REFERENCE 2.0 - 4.5 MG/DL [facility] MAIN LAB RANGES Specimen Blood Performing Organization Address [facility] Centercode Phone Number MAIN LAB [address] [place] [address] * MAGNESIUM (11/02/2018 3:45 AM CDT) Magnesium 2.3 1.6 - 2.6 mg/dL [facility] MAIN LAB Specimen Blood Performing Organization Address City/State/Zipcode Phone Number MAIN LAB [address] [place] [address] * BASIC METABOLIC PANEL (11/02/2018 3:45 AM [...] >60 >60 mL/min [facility] MAIN LAB Comment: Maltese The eGFR is not validated for use in drug dosing adjustments.Continue to use estimated creatinine clearance per dosing reference text.Please contact the Clinical Pharmacist for questions. eGFR >60 >60 mL/min [facility] MAIN LAB Maltese Comment: The eGFR is not validated for use in drug dosing adjustments.Continue to use estimated creatinine clearance per dosing reference text.Please contact the Clinical Pharmacist for questions. Specimen Blood Performing Organization Address City/[facility]/Zipcode Phone Number MAIN LAB [address] [place] [phone] * CBC AND DIFF (11/02/2018 3:45 AM [...] Basophil Count Specimen Blood Performing Organization Address City/[facility] Centercoma Phone Number [facility] MAIN [facility] [address] [place] [address] * IONIZED CALCIUM (11/02/2018 3:45 AM CDT) Ionized Calcium 1.29 1.0 - 1.3 MMOL/L [facility] MAIN LAB Specimen Blood Performing Organization Address [facility] Center[facility] Phone Number MAIN LAB [address] [place] [address] * IR GASTROSTOMY (11/01/2018 5:03 PM CDT) [...] placed over the Amplatz wire, a 22 Gambian peel-away sheath was advanced over the wire into the gastric lumen. The EZIO 1 catheter was then advanced over the Amplatz wire which was then exchanged for a stiff Glidewire. An 18 Gambian 45 cm gastrojejunostomy tube was advanced over [...] placed over the Amplatz wire, a 22 Gambian peel-away sheath was advanced over the wire into the gastric lumen. The EZIO 1 catheter was then advanced over the Amplatz wire which was then exchanged for a stiff Glidewire. An 18 Gambian 45 cm gastrojejunostomy tube was advanced over [...] on 11/02/2018 8:00 AM. Performing Organization Address [facility] Centercode Phone Number RAD RESULTS * MAGNESIUM (11/01/2018 1:53 PM CDT) Magnesium 2.6 1.6 - 2.6 mg/dL MAIN LAB Specimen Blood Performing Organization Address [facility] Center[facility] Phone Number MAIN LAB [address] [place] [address] * POTASSIUM (11/01/2018 1:53 PM CDT) Pathologist [facility] Potassium 5.0 3.5 - 5.1 MMOL/L MAIN LAB Specimen Blood Performing Organization Address [facility] Centercode Phone Number MAIN LAB [address] [place] [address] * IONIZED CALCIUM (11/01/2018 4:15 AM CDT) Ionized Calcium 1.29 1.0 - 1.3 MMOL/L MAIN LAB Specimen Blood Performing Organization Address [facility] Centercode Phone Number MAIN LAB [address] [place] [address] * PHOSPHORUS (11/01/2018 4:15 AM CDT) Phosphorus 4.4Comment: NOTE NEW REFERENCE 2.0 - 4.5 MG/DL MAIN LAB RANGES Specimen Blood Performing Organization Address [facility] CenterSocialance Phone Number MAIN LAB [address] [place] [phone] * MAGNESIUM (11/01/2018 4:15 AM CDT) Pathologist [facility] Magnesium 2.0 1.6 - 2.6 mg/dL [facility] MAIN LAB Specimen Blood Performing Organization Address City/[facility]/Zipcode Phone Number MAIN LAB [address] [place] [address] * BASIC METABOLIC PANEL (11/01/2018 4:15 AM CDT) Pathologist [facility] Sodium 138 137 - 147 MMOL/L [facility] [...] >60 >60 mL/min [facility] MAIN LAB Comment: [place] The eGFR is not validated for use in drug dosing adjustments.Continue to use estimated creatinine clearance per dosing reference text.Please contact the Clinical Pharmacist for questions. eGFR >60 >60 mL/min [facility] Maltese Comment: The eGFR is not validated for use in drug dosing adjustments.Continue to use estimated creatinine clearance per dosing reference text.Please contact the Clinical Pharmacist for questions. Specimen Blood Performing Organization Address City/[facility]/Zipcode Phone Number MAIN LAB [address] [place] [address] * CBC AND DIFF (11/01/2018 4:15 AM CDT) Pathologist [facility] White Blood 8.5 4.5 - 11.0 K/UL [...] Number [facility] [address] [place] [address] * CHEST SINGLE VIEW (10/31/2018 11:48 AM [...] on 10/31/2018 12:12 PM. Performing Organization Address City/[facility] Phone Number RAD RESULTS * IONIZED CALCIUM (10/31/2018 2:50 AM CDT) Ionized Calcium 1.35 (H) 1.0 - 1.3 MMOL/L [facility] Specimen Blood Performing Organization Address [facility] Phone Number MAIN LAB [address] [place] [address] * PHOSPHORUS (10/31/2018 2:50 AM CDT) Phosphorus 5.8 (H)Comment: NOTE NEW 2.0 - 4.5 MG/DL [facility] REFERENCE RANGES Specimen Blood Performing Organization Address [facility] Phone Number MAIN LAB [address] [place] [address] * MAGNESIUM (10/31/2018 2:50 AM CDT) Magnesium 2.1 1.6 - 2.6 mg/dL [facility] Specimen Blood Performing Organization Address [facility] [place] Phone Number MAIN LAB [address] [place] [address] * BASIC METABOLIC PANEL (10/31/2018 2:50 AM CDT) Sodium 139 137 - 147 [...] >60 >60 mL/min [facility] Comment: [place]alt[place] The eGFR is not validated for use in drug dosing adjustments.Continue to use estimated creatinine clearance per dosing reference text.Please contact the Clinical Pharmacist for questions. eGFR >60 >60 mL/min [facility] [place]ese Comment: The eGFR is not validated for use in drug dosing adjustments.Continue to use estimated creatinine clearance per dosing reference text.Please contact the Clinical Pharmacist for questions. Specimen Blood Performing Organization Address City/State/Zipcode Phone Number [facility] [address] [place] [address] * CBC AND DIFF (10/31/2018 2:50 AM CDT) White Blood 11.1 (H) 4.5 - 11.0 [...] Basophil Count Specimen Blood Performing Organization Address City/[facility]/Zipcode Phone Number MAIN LAB [address] [place] [address] * BASIC METABOLIC PANEL (10/30/2018 7:45 PM [...] >60 >60 mL/min [facility] Comment: [place] The eGFR is not validated for use in drug dosing adjustments.Continue to use estimated creatinine clearance per dosing reference text.Please contact the Clinical Pharmacist for questions. eGFR >60 >60 mL/min [facility] [place] Comment: The eGFR is not validated for use in drug dosing adjustments.Continue to use estimated creatinine clearance per dosing reference text.Please contact the Clinical Pharmacist for questions. Specimen Blood Performing Organization Address City/[facility]/Zipcode Phone Number MAIN LAB [address] [place] [address] * POC IONIZED CALCIUM (10/30/2018 7:25 PM CDT) Ionized 1.43 (H) 1.0 - 1.3 MMOL/L MAIN LAB Calcium-POC Performing Organization Address City/[facility]/Zipcode Phone Number MAIN LAB [address] [place] [address] * POC SODIUM (10/30/2018 7:25 PM CDT) Sodium-POC 150 (H) 137 - 147 MMOL/L [facility] Performing Organization Address City/[facility]/Zipcode Phone Number MAIN LAB [address] [place] [address] * POC POTASSIUM (10/30/2018 7:25 PM CDT) Potassium-POC 4.2 3.5 - 5.1 MMOL/L [facility] Performing Organization Address City/[facility]/Zipcode Phone Number MAIN LAB [address] [place] [address] * POC HEMATOCRIT (10/30/2018 7:25 PM CDT) Hemoglobin POC 11.2 (L) 12.0 - 15.0 GM/DL [facility] Hematocrit POC 33.0 (L) 36 - 45 % [facility] Performing Organization Address City/[facility] Phone Number [facility] [address] [place] [address] * POC BLOOD GAS ARTERIAL (10/30/2018 7:25 PM CDT) PH-ART-POC 7.34 (L) 7.35 - 7.45 MAIN LAB [id number] 50 (H) 35 - 45 MMHG [facility] PO2-ART-POC 103 (H) 80 - 100 MMHG [facility] Base Ex-ART-POC 1.0 MMOL/L MAIN LAB O2 Sat-ART-POC 97.0 95 - 99 % MAIN LAB Bicarbonate-ART 27.2 21 - 28 MMOL/L MAIN LAB -POC Performing Organization Address City/[facility] Phone Number MAIN LAB [address] [place] [address] * SURGICAL PATHOLOGY (10/30/2018 9:38 AM CDT) PATHOLOGY [facility] [email or web address] Department of Pathology and Laboratory Medicine [address] [place] [address] Surgical Pathology Office:[phone] :[phone] SURGICAL PATHOLOGY REPORT NAME: ETELVINA ALONSO SURG PATH #: [id number] MR #: [id number] SPECIMEN CLASS: [facility] BILLING #: [id number] ALT ID #:LOCATION: [facility] DATE OF PROCEDURE: 10/30/2018 AGE:[id number] SEX: F [...] aggregate Decalcification solution used: No Cassette A1- Padder section of specimen.(lmt) lt/10/30/2018 Performing Organization Address [facility] [place] Cent[facility] Phone Number [employer] [facility] [address] [place] [address] * IONIZED CALCIUM (10/30/2018 4:05 AM CDT) Ionized Calcium 1.26 1.0 - 1.3 MMOL/L [facility] LAB Specimen Blood Performing Organization Address [facility] Cent[facility] Phone Number [facility] [address] [place] [address] * PHOSPHORUS (10/30/2018 4:05 AM CDT) Phosphorus 5.8 (H)Comment: NOTE NEW 2.0 - 4.5 MG/DL [facility] LAB REFERENCE RANGES Specimen Blood Performing Organization Address [facility] [place] Phone Number [facility] [address] [place] [address] * MAGNESIUM (10/30/2018 4:05 AM CDT) Magnesium 2.1 1.6 - 2.6 mg/dL [facility] Specimen Blood Performing Organization Address [facility] [place] Phone Number [facility] [address] [place] [address] * BASIC METABOLIC PANEL (10/30/2018 4:05 AM [...] >60 >60 mL/min [facility] Comment: [place] The eGFR is not validated for use in drug dosing adjustments.Continue to use estimated creatinine clearance per dosing reference text.Please contact the Clinical Pharmacist for questions. eGFR >60 >60 mL/min [facility] [place]ese Comment: The eGFR is not validated for use in drug dosing adjustments.Continue to use estimated creatinine clearance per dosing reference text.Please contact the Clinical Pharmacist for questions. Specimen Blood Performing Organization Address [facility] [place] Phone Number [facility] [address] [place] [address] * CBC AND DIFF (10/30/2018 4:05 AM [...] - 5 % [facility] Basophils 2 0 - 2 % [facility] Absolute 6.90 1.8 - 7.0 K/UL [facility] Neutrophil Count Absolute Lymph 2.40 1.0 - 4.8 K/UL [facility] Count Absolute 1.30 (H) 0 - 0.80 K/UL [facility] Monocyte Count Absolute 0.20 0 - 0.45 K/UL MAIN LAB Eosinophil Count Absolute 0.20 0 - 0.20 K/UL MAIN LAB Basophil Count Specimen Blood Performing Organization Address City/[facility]/Zipcode Phone Number MAIN LAB [address] [place] [address] * POC IONIZED CALCIUM (10/29/2018 3:37 PM CDT) Ionized 1.29 1.0 - 1.3 MMOL/L MAIN LAB Calcium-POC Performing Organization Address City/[facility] Phone Number MAIN LAB [address] [place] [address] * POC SODIUM (10/29/2018 3:37 PM CDT) Sodium-POC 139 137 - 147 MMOL/L [facility] Performing Organization Address City/[facility] Phone Number [facility] [address] [place] [phone] * POC POTASSIUM (10/29/2018 3:37 PM CDT) Potassium-POC 4.2 3.5 - 5.1 MMOL/L [facility] Performing Organization Address City/[facility]/Zipcode Phone Number MAIN LAB [address] [place] [address] * POC HEMATOCRIT (10/29/2018 3:37 PM CDT) Hemoglobin POC 8.8 (L) 12.0 - 15.0 GM/DL [facility] Hematocrit POC 26.0 (L) 36 - 45 % [facility] Performing Organization Address City/[facility]/Zipcode Phone Number [facility] [address] [place] [address] * POC BLOOD GAS RAYO (10/29/2018 3:37 PM CDT) PH-RAYO-POC 7.33 7.30 - 7.40 [facility] [id number]-[id number] 48 36 - 50 MMHG [facility] PO2-RAYO-POC 51 (H) 33 - 48 MMHG [facility] Base Ex-RAYO-POC 0.0 MMOL/L [facility] O2 Sat-RAYO-POC 83.0 (H) 55 - 71 % [facility] Bicarbonate-RAYO 25.5 MMOL/L [facility] -POC Performing Organization Address [facility] [place]/Zipcode Phone Number [facility] [address] [place] [address] * US ABDOMEN COMPLETE (10/29/2018 8:13 AM [...] on 10/29/2018 8:28 AM. Performing Organization Address City/[facility]/Zipcode Phone Number RAD RESULTS * BLOOD TYPE CONFIRMATION - ORDER ONLY IF REQUESTED BY LAB (10/29/2018 4:18 AM CDT) ABO/RH(D) O POS [facility] Performing Organization Address [facility] [place] Phone Number MAIN LAB [address] [place] [address] * IONIZED CALCIUM (10/29/2018 4:18 AM CDT) Ionized Calcium 1.22 1.0 - 1.3 MMOL/L [facility] Specimen Blood Performing Organization Address [facility] [place] Phone Number MAIN LAB [address] [place] [address] * PHOSPHORUS (10/29/2018 4:18 AM CDT) Phosphorus 4.8 (H)Comment: NOTE NEW 2.0 - 4.5 MG/DL [facility] REFERENCE RANGES Specimen Blood Performing Organization Address [facility] [place] Phone Number MAIN LAB [address] [place] [address] * MAGNESIUM (10/29/2018 4:18 AM CDT) Magnesium 2.3 1.6 - 2.6 mg/dL [facility] Specimen Blood Performing Organization Address [facility] [place] Phone Number MAIN LAB [address] [place] [address] * BASIC METABOLIC PANEL (10/29/2018 4:18 AM CDT) Sodium 138 137 - 147 MMOL/L [facility] Potassium 4.4 3.5 - 5.1 [...] >60 >60 mL/min [facility] Comment: [place]alt[place] The eGFR is not validated for use in drug dosing adjustments.Continue to use estimated creatinine clearance per dosing reference text.Please contact the Clinical Pharmacist for questions. eGFR >60 >60 mL/min [facility] [place]ese Comment: The eGFR is not validated for use in drug dosing adjustments.Continue to use estimated creatinine clearance per dosing reference text.Please contact the Clinical Pharmacist for questions. Specimen Blood Performing Organization Address City/[facility]/Zipcode Phone Number [facility] [address] [place] [address] * CBC AND DIFF (10/29/2018 4:18 AM [...] Basophil Count Specimen Blood Performing Organization Address City/[facility]/Zipcode Phone Number [facility] [address] [place] [address] * TYPE & CROSSMATCH (10/28/2018 5:01 PM CDT) Units Ordered 1 [facility] Crossmatch 10/31/2018 [facility] Expires Record Check 2ND TYPE REQUIRED MAIN LAB ABO/RH(D) O POS MAIN LAB Antibody Screen NEG MAIN LAB Electronic YES MAIN LAB Crossmatch Unit Number [id number] MAIN LAB Blood Component RBC,ADSOL,LEUKO REDUCED [facility] Type Unit Division 0 MAIN LAB Status OF Unit TRANSFUSED [facility] Transfusion OK TO TRANSFUSE MAIN LAB Status Crossmatch COMPATIBLE,ELECTRONIC MAIN LAB Result Specimen Blood Performing Organization Address [facility] [place] Phone Number MAIN LAB [address] [place] [address] * POTASSIUM (10/28/2018 2:14 PM CDT) Potassium 5.1 3.5 - 5.1 MMOL/L MAIN LAB Specimen Blood Performing Organization Address [facility] Phone Number MAIN LAB [address] [place] [address] * IRON + BINDING CAPACITY + %SAT+ FERRITIN (10/28/2018 2:14 PM CDT) Iron 21 (L) 50 - 160 MCG/DL MAIN LAB Iron 344 270 - 380 MCG/DL MAIN LAB Binding-TIBC % Saturation 6 (L) 28 - 42 % MAIN LAB Ferritin 168 10 - 200 NG/ML MAIN LAB Specimen Blood Performing Organization Address [facility] [place] Phone Number MAIN LAB [address] [place] [address] * RETICULOCYTE COUNT (10/28/2018 2:14 PM CDT) Retic, 2.1 (H) 0.5 - 2.0 % MAIN LAB Uncorrected Retic, 1.3 % MAIN LAB Corrected Retic, Absolute 59.2 30 - 94 K/UL MAIN LAB Specimen Blood Performing Organization Address [facility] [place] Phone Number MAIN LAB [address] [place] [address] * IONIZED CALCIUM (10/28/2018 3:51 AM CDT) Ionized Calcium 1.32 (H) 1.0 - 1.3 MMOL/L MAIN LAB Specimen Blood Performing Organization Address [facility] [place]/Zipcode Phone Number MAIN LAB [address] [place] [address] * PHOSPHORUS (10/28/2018 3:43 AM CDT) Phosphorus 4.4Comment: NOTE NEW REFERENCE 2.0 - 4.5 MG/DL [facility] RANGES Specimen Blood Performing Organization Address [facility] [place] Phone Number MAIN LAB [address] [place] [address] * MAGNESIUM (10/28/2018 3:43 AM CDT) Pathologist [facility] Magnesium 2.2 1.6 - 2.6 mg/dL [facility] Specimen Blood Performing Organization Address [facility] [place] Phone Number [facility] [address] [place] [address] * BASIC METABOLIC PANEL (10/28/2018 3:43 AM [...] >60 >60 mL/min [facility] Comment: [place]altese The eGFR is not validated for use in drug dosing adjustments.Continue to use estimated creatinine clearance per dosing reference text.Please contact the Clinical Pharmacist for questions. eGFR >60 >60 mL/min [facility] [place]ese Comment: The eGFR is not validated for use in drug dosing adjustments.Continue to use estimated creatinine clearance per dosing reference text.Please contact the Clinical Pharmacist for questions. Specimen Blood Performing Organization Address [facility] [place] Phone Number [facility] [address] [place] [address] * CBC AND DIFF (10/28/2018 3:43 AM CDT) White Blood 11.9 (H) 4.5 - 11.0 [...] - 2 % [facility] Absolute 8.50 (H) 1.8 - [...] Basophil Count Specimen Blood Performing Organization Address [facility] [place] Phone Number MAIN LAB [address] [place] [address] * IONIZED CALCIUM (10/27/2018 4:38 AM CDT) Pathologist [facility] Ionized Calcium 1.26 1.0 - 1.3 MMOL/L MAIN LAB Specimen Blood Performing Organization Address [facility] [place] Phone Number MAIN LAB [address] [place] [address] * BLOOD GASES, ARTERIAL (10/27/2018 4:38 AM CDT) Pathologist [facility] pH-Arterial 7.37 7.35 - 7.45 [facility] pCO2-Arterial 41 35 - 45 MMHG [facility] pO2-Arterial 124 (H) 80 - 100 MMHG [facility] Base 1.7 MMOL/L MAIN LAB Deficit-Arteria l O2 Sat-Arterial 98.6 95 - 99 % [facility] Bicarbonate-ART 23.0 21 - 28 MMOL/L [facility] -Earl Specimen Blood, arterial - Blood Performing Organization Address [facility] [place] Phone Number MAIN LAB [address] [place] [address] * PHOSPHORUS (10/27/2018 4:18 AM CDT) Phosphorus 4.0Comment: NOTE NEW REFERENCE 2.0 - 4.5 MG/DL [facility]IN [facility] RANGES Specimen Blood Performing Organization Address [facility] [place] Phone Number MAIN LAB [address] [place] [address] * MAGNESIUM (10/27/2018 4:18 AM CDT) Pathologist [facility] Magnesium 2.2 1.6 - 2.6 mg/dL [facility] Specimen Blood Performing Organization Address [facility] [place] Phone Number [facility] [address] [place] [address] * BASIC METABOLIC PANEL (10/27/2018 4:18 AM CDT) Pathologist [facility] Sodium 138 137 - 147 MMOL/L [facility] [...] >60 >60 mL/min [facility] Comment: [place] The eGFR is not validated for use in drug dosing adjustments.Continue to use estimated creatinine clearance per dosing reference text.Please contact the Clinical Pharmacist for questions. eGFR >60 >60 mL/min [facility] [place] Comment: The eGFR is not validated for use in drug dosing adjustments.Continue to use estimated creatinine clearance per dosing reference text.Please contact the Clinical Pharmacist for questions. Specimen Blood Performing Organization Address [facility] [place] Phone Number [facility] [address] [place] [address] * CBC AND DIFF (10/27/2018 4:18 AM CDT) Pathologist [facility] White Blood 13.9 (H) 4.5 - 11.0 [...] LAB MCHC 32.7 32.0 - 36.0 G/DL MAIN LAB RDW 14.1 11 - 15 [...] LAB Basophils 1 0 - 2 % MAIN LAB Absolute 10.80 (H) 1.8 - 7.0 K/UL [facility] Neutrophil Count Absolute Lymph 1.80 1.0 - 4.8 K/UL [facility] Count Absolute 1.00 (H) 0 - 0.80 K/UL MAIN LAB Monocyte Count Absolute 0.20 0 - 0.45 K/UL [facility] Eosinophil Count Absolute 0.10 0 - 0.20 K/UL [facility]IN [facility] Basophil Count Specimen Blood Performing Organization Address [facility] Phone Number MAIN LAB [address] [place] [address] * LIVER FUNCTION PANEL (10/27/2018 4:18 AM CDT) Total Bilirubin 0.2 (L) 0.3 - 1.2 MG/DL [facility] Bilirubin, 0.2 <0.4 MG/DL [facility] Direct Albumin 2.8 (L) 3.5 - 5.0 G/DL MAIN LAB Alk Phosphatase 23 (L) 25 - 110 U/L [facility] AST (SGOT) 15 7 - 40 U/L [facility] ALT (SGPT) 12 7 - 56 U/L MAIN LAB Total Protein 6.0 6.0 - 8.0 G/DL MAIN LAB Specimen Blood Performing Organization Address [facility] [place] Phone Number MAIN LAB [address] [place] [address] * POTASSIUM (10/26/2018 8:52 PM CDT) Potassium 4.1 3.5 - 5.1 MMOL/L MAIN LAB Specimen Blood Performing Organization Address [facility]/Zipcode Phone Number MAIN LAB [address] [place] [address] * MRI HEAD WO/W CONTRAST (10/26/2018 5:18 [...] on 10/26/2018 8:01 AM. Performing Organization Address City/[facility] Phone Number RAD RESULTS * PHOSPHORUS (10/26/2018 3:16 AM CDT) Phosphorus 3.8Comment: NOTE NEW REFERENCE 2.0 - 4.5 MG/DL MAIN LAB RANGES Specimen Blood Performing Organization Address City/[facility] Phone Number MAIN LAB [address] [place] [address] * MAGNESIUM (10/26/2018 3:16 AM CDT) Magnesium 2.2 1.6 - 2.6 mg/dL MAIN LAB Specimen Blood Performing Organization Address [facility] [place] Phone Number MAIN LAB [address] [place] [address] * BASIC METABOLIC PANEL (10/26/2018 3:16 AM CDT) Sodium 140 137 - 147 [...] >60 >60 mL/min [facility] Comment: [place] The eGFR is not validated for use in drug dosing adjustments.Continue to use estimated creatinine clearance per dosing reference text.Please contact the Clinical Pharmacist for questions. eGFR >60 >60 mL/min [facility] [place]ese Comment: The eGFR is not validated for use in drug dosing adjustments.Continue to use estimated creatinine clearance per dosing reference text.Please contact the Clinical Pharmacist for questions. Specimen Blood Performing Organization Address City/State/Zipcode Phone Number MAIN LAB [address] [place] [address] * CBC AND DIFF (10/26/2018 3:16 AM CDT) Pathologist [facility] White Blood 12.6 (H) 4.5 - 11.0 [...] Lymphocytes 16 (L) 24 - 44 % [facility] Monocytes 5 4 - 12 % [facility] Eosinophils 2 0 - 5 % [facility] Basophils 0 0 - 2 % [facility] Absolute 9.50 (H) 1.8 - 7.0 K/UL [facility]IN [facility] Neutrophil Count Absolute Lymph 2.10 1.0 - 4.8 K/UL MAIN LAB Count Absolute 0.70 0 - 0.80 K/UL MAIN LAB Monocyte Count Absolute 0.30 0 - 0.45 K/UL MAIN LAB Eosinophil Count Absolute 0.00 0 - 0.20 K/UL MAIN LAB Basophil Count Specimen Blood Performing Organization Address City/[facility] Phone Number MAIN LAB [address] [place] [address] * IONIZED CALCIUM (10/26/2018 3:16 AM CDT) Ionized Calcium 1.20 1.0 - 1.3 MMOL/L MAIN LAB Specimen Blood Performing Organization Address [facility] Phone Number MAIN LAB [address] [place] [address] * PHOSPHORUS (10/25/2018 2:00 PM CDT) Phosphorus 3.2Comment: NOTE NEW REFERENCE 2.0 - 4.5 MG/DL MAIN LAB RANGES Specimen Blood Performing Organization Address [facility] Phone Number MAIN LAB [address] [place] [phone] * POTASSIUM (10/25/2018 8:15 AM CDT) Potassium 4.4 3.5 - 5.1 MMOL/L MAIN LAB Specimen Blood Performing Organization Address [facility] Phone Number MAIN LAB [address] [place] [address] * POC GLUCOSE (10/25/2018 6:30 AM CDT) Glucose, POC 161 (H) 70 - 100 MG/DL MAIN LAB Performing Organization Address [facility] Phone Number MAIN LAB [address] [place] [address] * CHEST SINGLE VIEW (10/25/2018 4:08 AM [...] below the diaphragm and out of the [id number]. There is mild cardiomegaly with mild pulmonary [...] below the diaphragm and out of the [id number]. There is mild cardiomegaly with mild pulmonary [...] on 10/25/2018 10:20 AM. Performing Organization Address City/State/Zipcode Phone Number [facility] RAD RESULTS * PHOSPHORUS (10/25/2018 3:19 AM CDT) Phosphorus 1.6 (L)Comment: NOTE NEW 2.0 - 4.5 MG/DL [facility] MAIN [facility] REFERENCE RANGES Specimen Blood Performing Organization Address [facility] [facility] Phone Number [facility] [address] [place] [address] * MAGNESIUM (10/25/2018 3:19 AM CDT) Pathologist [facility] Magnesium 2.2 1.6 - 2.6 mg/dL [facility] Specimen Blood Performing Organization Address [facility] [place] Phone Number [facility] [address] [place] [address] * BASIC METABOLIC PANEL (10/25/2018 3:19 AM [...] >60 >60 mL/min [facility] Comment: Maltese The eGFR is not validated for use in drug dosing adjustments.Continue to use estimated creatinine clearance per dosing reference text.Please contact the Clinical Pharmacist for questions. eGFR >60 >60 mL/min [facility] Maltese Comment: The eGFR is not validated for use in drug dosing adjustments.Continue to use estimated creatinine clearance per dosing reference text.Please contact the Clinical Pharmacist for questions. Specimen Blood Performing Organization Address [facility] [place] Phone Number [facility] [address] [place] [address] * CBC AND DIFF (10/25/2018 3:19 AM [...] LAB MCH 31.2 26 - 34 PG MAIN LAB MCHC 32.9 32.0 - 36.0 G/DL MAIN LAB RDW 13.7 11 - 15 % MAIN LAB Platelet Count 327 150 - 400 K/UL MAIN LAB MPV 9.3 7 - 11 FL MAIN LAB Neutrophils 81 (H) 41 - [...] Absolute Lymph 1.60 1.0 - 4.8 K/UL [facility] Count Absolute 0.80 0 - 0.80 K/UL MAIN LAB Monocyte Count Absolute 0.20 0 - 0.45 K/UL MAIN LAB Eosinophil Count Absolute 0.00 0 - 0.20 K/UL MAIN LAB Basophil Count Specimen Blood Performing Organization Address City/[facility] Phone Number MAIN LAB [address] [place] [address] * AMMONIA (10/25/2018 3:19 AM CDT) Ammonia 50 (H) 9 - 35 MCMOL/L MAIN LAB Specimen Blood Performing Organization Address City/[facility] Phone Number MAIN LAB [address] [place] [address] * IONIZED CALCIUM (10/25/2018 3:19 AM CDT) Ionized Calcium 1.15 1.0 - 1.3 MMOL/L MAIN LAB Specimen Blood Performing Organization Address [facility] [place] Phone Number MAIN LAB [address] [place] [address] * POC GLUCOSE (10/24/2018 10:00 PM CDT) Glucose, POC 147 (H) 70 - 100 MG/DL MAIN LAB Performing Organization Address [facility] [place] Phone Number MAIN LAB [address] [place] [address] * C DIFFICILE BY PCR (10/24/2018 6:30 PM CDT) Battery Name C DIFFICILE PCR MAIN LAB Specimen FECES MAIN LAB Description Special NONE MAIN LAB Requests C. Difficile NEGATIVE-wait 7 days to repeat [facility] Toxin B PCR test Report Status FINAL MAIN LAB 10/25/2018 Specimen Feces Performing Organization Address City/[facility]/Zipcode Phone Number MAIN LAB [address] [place] [address] * POTASSIUM (10/24/2018 9:56 AM CDT) Potassium 3.5 3.5 - 5.1 MMOL/L MAIN LAB Specimen Blood Performing Organization Address City/[facility]/Zipcode Phone Number MAIN LAB [address] [place] [address] * MAGNESIUM (10/24/2018 9:56 AM CDT) Magnesium 2.5 1.6 - 2.6 mg/dL MAIN LAB Specimen Blood Performing Organization Address City/[facility] Phone Number MAIN LAB [address] [place] [address] * VANCOMYCIN TROUGH (10/24/2018 9:56 AM CDT) Vancomycin 11.8 10.0 - 20.0 MCG/ML MAIN LAB Trough Specimen Blood, venous - Blood Performing Organization Address City/[facility] Phone Number MAIN LAB [address] [place] [address] * IONIZED CALCIUM (10/24/2018 2:00 AM CDT) Ionized Calcium 1.17 1.0 - 1.3 MMOL/L MAIN LAB Specimen Blood Performing Organization Address [facility] [place] Phone Number MAIN LAB [address] [place] [address] * PHOSPHORUS (10/24/2018 2:00 AM CDT) Phosphorus 2.5Comment: NOTE NEW REFERENCE 2.0 - 4.5 MG/DL MAIN LAB RANGES Specimen Blood Performing Organization Address City/[facility]/Zipcode Phone Number MAIN LAB [address] [place] [address] * MAGNESIUM (10/24/2018 2:00 AM CDT) Magnesium 1.9 1.6 - 2.6 mg/dL MAIN LAB Specimen Blood Performing Organization Address City/[facility] Phone Number MAIN LAB [address] [place] [address] * CBC AND DIFF (10/24/2018 2:00 AM [...] City/State/Zipcode Phone Number [facility] [address] [place] [address] * BASIC METABOLIC PANEL (10/24/2018 2:00 AM CDT) Sodium 140 137 - 147 [...] >60 >60 mL/min [facility] Comment: Maltese The eGFR is not validated for use in drug dosing adjustments.Continue to use estimated creatinine clearance per dosing reference text.Please contact the Clinical Pharmacist for questions. eGFR >60 >60 mL/min [facility] Maltese Comment: The eGFR is not validated for use in drug dosing adjustments.Continue to use estimated creatinine clearance per dosing reference text.Please contact the Clinical Pharmacist for questions. Specimen Blood Performing Organization Address City/State/Zipcode Phone Number [facility] [address] [place] [address] * ABDOMEN AP ONLY (10/23/2018 9:27 PM [...] and upper abdomen are included in the [id number]. There is generalized cardiomegaly. There are zones [...] and upper abdomen are included in the [id number]. There is generalized cardiomegaly. There are zones [...] on 10/24/2018 6:35 AM. Performing Organization Address City/[facility]/Zipcode Phone Number [facility] RESULTS * GRAM STAIN (10/23/2018 4:15 PM CDT) Battery Name GRAM STAIN [facility] Specimen CSF MAIN LAB Description Special NONE [facility] Requests Gram Stain RARE [facility] NEUTROPHILS NO ORGANISMS SEEN Report Status FINAL [facility] 10/23/2018 Specimen Cerebrospinal Fluid Performing Organization Address [facility] [place] Phone Number [facility] [address] [place] [address] * HERPES SIMPLEX PCR - NON-BLOOD (10/23/2018 4:15 PM CDT) Specimen, CSF [facility] Herpes Herpes Simplex HSV 1 and 2 NOT DETECTED HSVND-HSV 1 and 2 [facility] PCR Comment: NOT DETECTED [facility] HSV 1&2 Assay is a qualitative real-time PCR test for the direct detection and differentiation of HSV 1 and 2 DNA. This assay is FDA approved for testing cutaneous or mucocutaneous lesions from symptomatic patients. Performance on modifications of this test as well as other specimen types has been validated by the Department of Pathology and Laboratory Medicine at the [facility]. Specimen Cerebrospinal Fluid Performing Organization Address City/[facility]/Zipcode Phone Number [facility] [address] [place] [address] * CULTURE-CSF W/SENSITIVITY (10/23/2018 4:15 PM CDT) Battery Name CSF CULTURE MAIN LAB Specimen CSF MAIN LAB Description Special NONE MAIN LAB Requests Direct Gram RARE [facility] Stain NEUTROPHILS NO ORGANISMS SEEN Culture NO GROWTH 3 DAYS MAIN LAB Report Status FINAL [facility] 10/26/2018 Specimen Cerebrospinal fluid - Cerebrospinal Fluid Performing Organization Address [facility] [place] Cent[facility] Phone Number MAIN LAB [address] [place] [address] * GLUCOSE-CSF (10/23/2018 4:15 PM CDT) Pathologist [facility] Glucose,CSF 70 40 - 75 MG/DL MAIN LAB Xanthrochromia, NONE [facility] CSF BLOOD PRESENT Specimen Cerebrospinal fluid - Cerebrospinal Fluid Performing Organization Address [facility] [place] Cent[facility] Phone Number MAIN LAB [address] [place] [address] * TOTAL PROTEIN-CSF (10/23/2018 4:15 PM CDT) Pathologist [facility] Total 70 (H) 15 - 45 MG/DL MAIN LAB Protein,CSF Specimen Cerebrospinal fluid - Cerebrospinal Fluid Performing Organization Address [facility] Phone Number MAIN LAB [address] [place] [address] * CELL COUNT W/DIFF-CSF (10/23/2018 4:15 PM CDT) Pathologist [facility] Cell Count TUBE 4 [facility] Tube,CSF White Blood 23 (H) <5 /UL [facility] Cells,CSF Red Blood 1 /UL [facility] Cells,CSF Neutrophils, 3 % [facility] CSF Lymphocytes, 86 % [facility] CSF Monocyte/Hisoto 9 % [facility] cyte, CSF Other, CSF 2 % [facility] Clarity,CSF CLEAR [facility] Path CHRONIC INFLAMMATION MAIN LAB [...] fluid - Cerebrospinal Fluid Performing Organization Address [facility] [place] Cent[facility] Phone Number MAIN LAB [address] [place] [address] * TRANSESOPHAGEAL ECHOCARDIOGRAM (10/23/2018 3:51 PM CDT) Mr max bozena 6.5 m/s OTHER OUTSIDE LAB BSA 1.57 m2 OTHER OUTSIDE LAB CV ECHO PV MARI Doan; Floor RN OTHER OUTSIDE BI DATA ARCHITECT LAB Cardiology Siemens [id number] OTHER OUTSIDE Ultrasound LAB Machine ECHO EF 45 % OTHER OUTSIDE LAB Radius 0.5 cm OTHER OUTSIDE LAB AV peak 1.6 m/s OTHER OUTSIDE velocity LAB Vn Nyquist 0.31 m/s OTHER OUTSIDE LAB MR ELVIA TORRES 0.07 cm2 OTHER OUTSIDE LAB Narrative Performed [...] This study was read in conjunction with foundation drill operator, Dr. Don Dominguez.I have personally reviewed the study and co-formulated the interpretation expressed in this report. Performing Organization Address City/[facility]/Zipcode Phone Number OTHER OUTSIDE LAB * POTASSIUM (10/23/2018 1:17 PM CDT) Potassium 4.0 3.5 - 5.1 MMOL/L MAIN LAB Specimen Blood Performing Organization Address City/State/Zipcode Phone Number MAIN LAB [address] [place] [address] * BLOOD GASES, ARTERIAL (10/23/2018 3:25 AM [...] Blood, arterial - Blood Performing Organization Address [facility] [place]/Zipcode Phone Number [facility] [address] [place] [address] * IONIZED CALCIUM (10/23/2018 3:25 AM CDT) Ionized Calcium 1.18 1.0 - 1.3 MMOL/L [facility] Specimen Blood Performing Organization Address [facility] [place] Phone Number [facility] [address] [place] [address] * PHOSPHORUS (10/23/2018 3:25 AM CDT) Phosphorus 1.6 (L)Comment: NOTE NEW 2.0 - 4.5 MG/DL [facility]IN [facility] REFERENCE RANGES Specimen Blood Performing Organization Address [facility] [place] Phone Number [facility] [address] [place] [address] * MAGNESIUM (10/23/2018 3:25 AM CDT) Magnesium 2.0 1.6 - 2.6 mg/dL [facility] Specimen Blood Performing Organization Address [facility] [place] Phone Number [facility] [address] [place] [address] * CBC AND DIFF (10/23/2018 3:25 AM CDT) White Blood 16.9 (H) 4.5 - 11.0 K/UL [facility]IN [facility] Cells RBC 2.63 (L) 4.0 - 5.0 M/UL [facility] Hemoglobin 8.2 (L) 12.0 - 15.0 GM/DL [facility]IN [facility] Hematocrit 25.2 (L) 36 - 45 % [facility] MCV 95.9 80 - 100 FL [facility]IN [facility] MCH 31.1 26 - 34 PG [facility] MCHC 32.4 32.0 - 36.0 [...] Address City/State/Zipcode Phone Number MAIN LAB [address] [place] [address] * BASIC METABOLIC PANEL (10/23/2018 3:25 AM CDT) Sodium 145 137 - 147 MMOL/L MAIN LAB Potassium 3.4 (L) 3.5 - [...] >60 >60 mL/min [facility] Comment: Maltese The eGFR is not validated for use in drug dosing adjustments.Continue to use estimated creatinine clearance per dosing reference text.Please contact the Clinical Pharmacist for questions. eGFR >60 >60 mL/min MAIN LAB [place]altese Comment: The eGFR is not validated for use in drug dosing adjustments.Continue to use estimated creatinine clearance per dosing reference text.Please contact the Clinical Pharmacist for questions. Specimen Blood Performing Organization Address City/[facility]/Zipcode Phone Number [facility] [address] [place] [address] * CULTURE-BLOOD W/SENSITIVITY (10/22/2018 12:36 PM CDT) Battery Name BLOOD CULTURE [facility] Specimen BLOOD MAIN LAB Description RIGHT ANTECUBITAL Special aerobic bottle only MAIN LAB Requests Culture performed on specimen with less than the recommended volume of 10 ml/bottle. Decreased volume will affect sensitivity of culture. Culture NO GROWTH 5 DAYS MAIN LAB Report Status FINAL MAIN LAB 10/28/2018 Specimen Blood Performing Organization Address City/[facility]/Zipcode Phone Number MAIN LAB [address] [place] [address] * CULTURE-BLOOD W/SENSITIVITY (10/22/2018 11:43 AM CDT) Battery Name BLOOD CULTURE [facility] Specimen BLOOD [facility] Description RIGHT ANTECUBITAL Special NONE [facility] Requests Culture NO GROWTH 5 DAYS MAIN LAB Report Status FINAL MAIN LAB 10/28/2018 Specimen Blood Performing Organization Address City/[facility]/Zipcode Phone Number MAIN LAB [address] [place] [address] * BLOOD GASES, ARTERIAL (10/22/2018 3:15 AM CDT) pH-Arterial 7.45 7.35 - 7.45 MAIN LAB pCO2-Arterial 50 (H) 35 - 45 MMHG MAIN LAB pO2-Arterial 88 80 - 100 MMHG [facility] MAIN [facility] Base 9.0 MMOL/L MAIN LAB Excess-Arterial O2 Sat-Arterial 96.7 95 - 99 % MAIN LAB Bicarbonate-ART 32.8 (H) 21 - 28 MMOL/L MAIN LAB -Earl Specimen Blood, arterial - Blood Performing Organization Address [facility] [place] Phone Number MAIN LAB [address] [place] [address] * IONIZED CALCIUM (10/22/2018 3:15 AM CDT) Ionized Calcium 1.23 1.0 - 1.3 MMOL/L MAIN LAB Specimen Blood Performing Organization Address [facility] [place] Phone Number MAIN LAB [address] [place] [address] * PHOSPHORUS (10/22/2018 3:15 AM CDT) Phosphorus 1.9 (L)Comment: NOTE NEW 2.0 - 4.5 MG/DL MAIN LAB REFERENCE RANGES Specimen Blood Performing Organization Address City/[facility]/Zipcode Phone Number MAIN LAB [address] [place] [address] * MAGNESIUM (10/22/2018 3:15 AM CDT) Magnesium 2.1 1.6 - 2.6 mg/dL MAIN LAB Specimen Blood Performing Organization Address [facility] [place] Phone Number [facility] [address] [place] [address] * CBC AND DIFF (10/22/2018 3:15 AM [...] Basophil Count Specimen Blood Performing Organization Address City/[facility]/Zipcode Phone Number MAIN LAB [address] [place] [address] * BASIC METABOLIC PANEL (10/22/2018 3:15 AM CDT) Sodium 150 (H) 137 - 147 MMOL/L [facility] Potassium 3.6 3.5 - 5.1 MMOL/L [facility] Chloride 113 (H) 98 - 110 MMOL/L [facility] CO2 33 (H) 21 - 30 MMOL/L [facility] Anion Gap 4 3 - 12 [facility] Glucose 175 (H) 70 - 100 MG/DL [facility]IN [facility] Blood Urea 12 7 - 25 MG/DL [facility] Nitrogen Creatinine 0.47 0.4 - 1.00 MG/DL [facility] Calcium 8.5 8.5 - 10.6 MG/DL [facility]IN [facility] eGFR Non >60 >60 mL/min [facility] Comment: Maltese The eGFR is not validated for use in drug dosing adjustments.Continue to use estimated creatinine clearance per dosing reference text.Please contact the Clinical Pharmacist for questions. eGFR >60 >60 mL/min [facility] [place] Comment: The eGFR is not validated for use in drug dosing adjustments.Continue to use estimated creatinine clearance per dosing reference text.Please contact the Clinical Pharmacist for questions. Specimen Blood Performing Organization Address City/[facility]/Zipcode Phone Number MAIN LAB [address] [place] [address] * VANCOMYCIN TROUGH (10/21/2018 9:41 PM CDT) Vancomycin 9.8 (L) 10.0 - 20.0 MCG/ML [facility] MAIN [facility] Trough Specimen Blood, venous - Blood Performing Organization Address [facility] [place] Phone Number [facility] [address] [place] [phone] * SODIUM (10/21/2018 1:35 PM CDT) Sodium 149 (H) 137 - 147 MMOL/L [facility]IN [facility] Specimen Blood Performing Organization Address [facility] [place] Phone Number [facility] [address] [place] [address] * ABDOMEN AP ONLY (10/21/2018 10:38 AM [...] on 10/21/2018 11:19 AM. Performing Organization Address City/[facility] Phone Number RAD RESULTS * IONIZED CALCIUM (10/21/2018 3:10 AM CDT) Pathologist [facility] Ionized Calcium 1.20 1.0 - 1.3 MMOL/L MAIN LAB Specimen Blood Performing Organization Address [facility] [place] Phone Number MAIN LAB [address] [place] [address] * PHOSPHORUS (10/21/2018 3:10 AM CDT) Phosphorus 2.5Comment: NOTE NEW REFERENCE 2.0 - 4.5 MG/DL MAIN LAB RANGES Specimen Blood Performing Organization Address [facility] [place] Phone Number MAIN LAB [address] [place] [address] * MAGNESIUM (10/21/2018 3:10 AM CDT) Pathologist [facility] Magnesium 2.1 1.6 - 2.6 mg/dL MAIN LAB Specimen Blood Performing Organization Address [facility] Phone Number MAIN LAB [address] [place] [phone] * CBC AND DIFF (10/21/2018 3:10 AM [...] Basophil Count Specimen Blood Performing Organization Address City/[facility]/Zipcode Phone Number [facility] [address] [place] [address] * BASIC METABOLIC PANEL (10/21/2018 3:10 AM CDT) [facility] Signature Sodium 150 (H) 137 - 147 [...] Nitrogen Creatinine 0.48 0.4 - 1.00 MG/DL MAIN LAB Calcium 8.8 8.5 - 10.6 MG/DL MAIN LAB eGFR Non >60 >60 mL/min [facility]IN [facility] Comment: Maltese The eGFR is not validated for use in drug dosing adjustments.Continue to use estimated creatinine clearance per dosing reference text.Please contact the Clinical Pharmacist for questions. eGFR >60 >60 mL/min MAIN LAB [place] Comment: The eGFR is not validated for use in drug dosing adjustments.Continue to use estimated creatinine clearance per dosing reference text.Please contact the Clinical Pharmacist for questions. Specimen Blood Performing Organization Address City/[facility]/Zipcode Phone Number [facility] [address] [place] [address] * RVP VIRAL PANEL PCR (10/20/2018 11:05 PM CURTAIN [facility]ER) Specimen Source NASOPHARYNGEAL SWAB [facility] This assay uses analyte specific reagents and has not been cleared by the [place] Food and Drug Administration.The performance characteristics were determined by the [facility]. Adenovirus NOT DETECTED [facility] MAIN [facility] [...] Pneumoniae Specimen Nasopharyngeal Swab Performing Organization Address City/State/[facility] Phone Number [facility] [address] [place] [address] * ABDOMEN AP ONLY (10/20/2018 8:25 PM CURTAIN [facility]) Impressions Performed At Impression: Tip of the [...] on 10/21/2018 10:08 AM. Performing Organization Address City/State/[facility] Phone Number [facility] RAD RESULTS * ABDOMEN AP ONLY (10/20/2018 8:18 PM CURTAIN [facility]) Impressions Performed At [employer] [...] on 10/21/2018 11:52 AM. Performing Organization Address [facility] [place] Phone Number [facility] RAD RESULTS * LIVER FUNCTION PANEL (10/20/2018 3:57 PM CURTAIN [facility]ER) Total Bilirubin 0.3 0.3 - 1.2 MG/DL [...] MAIN LAB Specimen Blood Performing Organization Address City/[facility] Phone Number [facility] [address] [place] [address] * AMMONIA (10/20/2018 3:57 PM [facility]) Ammonia 76 (H) 9 - 35 MCMOL/L [facility] MAIN [facility] Specimen Blood Performing Organization Address [facility] [place] Phone Number [facility] [address] [place] [address] * MRI HEAD WO/W CONTRAST (10/20/2018 3:41 PM [facility]) Addenda Addendum by Mayank Price MD on [...] Interface, Radiant Results - 10/20/2018 4:46 PM [facility] EXAM: MRI BRAIN (SKULL BASE PROTOCOL) HISTORY: [...] EXTREM W CONT BILAT (10/20/2018 1:56 PM CURTAIN [facility]) Impressions Performed At 1. Mild soft tissue [...] AUD CANAL WO CONTRAST (10/20/2018 1:50 PM CURTAIN [facility]) Impressions Performed At 1.Extensive thinning and numerous [...] on 10/21/2018 7:21 AM. Performing Organization Address City/[facility]/Zipcode Phone Number RAD RESULTS * POTASSIUM (10/20/2018 11:17 AM CURTAIN [facility]ER) Potassium 4.0 3.5 - 5.1 MMOL/L MAIN LAB Specimen Blood Performing Organization Address [facility] [place] Phone Number MAIN LAB [address] [place] [address] * ACETAMINOPHEN LEVEL (10/20/2018 11:17 AM [facility]) Acetaminophen <10.0 <20.1 MCG/ML MAIN LAB Specimen Blood Performing Organization Address [facility] [place] Phone Number MAIN LAB [address] [place] [phone] * 2-D + DOPPLER ECHOCARDIOGRAM (10/20/2018 10:08 AM [facility]) IVS 0.76 0.6 - 0.9 cm OTHER [...] 34 OTHER OUTSIDE Index LAB Cardiology Siemens [id number] OTHER OUTSIDE Ultrasound LAB Machine Left Ventricle 62.44 44 - 88 g/m2 OTHER OUTSIDE Mass Index LAB ECHO EF 40 % OTHER OUTSIDE LAB Narrative Performed At OTHER OUTSIDE LAB LVEF=35-40% With Mid To Distal Anteroapical Severe Hypokinesis To Akinesis. Knejnqsuvaw=[id number] bpm Normal LV Wall Thickness Normal Chamber Dimensions Anterior Mitral Valve Borderline Prolapse No Vegetations Moderate Eccentric Posterior Lateral Jet Mitral Valve Regurgitation No Pericardial Effusion PASP=33mmHg Performing Organization Address City/[facility] Phone Number OTHER OUTSIDE LAB * BLOOD GASES, ARTERIAL (10/20/2018 3:49 AM CURTAIN [facility]RIER) Pathologist [facility] pH-Arterial 7.41 7.35 - 7.45 MAIN LAB pCO2-Arterial 47 (H) 35 - 45 MMHG [facility] MAIN LAB pO2-Arterial 99 80 - 100 MMHG [facility] MAIN LAB Base 3.9 MMOL/L MAIN LAB Excess-Arterial O2 Sat-Arterial 97.7 95 - 99 % MAIN LAB Bicarbonate-ART 27.9 21 - 28 MMOL/L MAIN LAB -Earl Specimen Blood, arterial - Blood Performing Organization Address City/[facility] Phone Number MAIN LAB [address] [place] [address] * IONIZED CALCIUM (10/20/2018 3:38 AM CURTAIN DRIER) [facility] Ionized Calcium 1.22 1.0 - 1.3 MMOL/L MAIN LAB Specimen Blood Performing Organization Address [facility] [place] Phone Number MAIN LAB [address] [place] [address] * PHOSPHORUS (10/20/2018 3:38 AM CUR[facility]ER) [facility] Phosphorus 3.0Comment: NOTE NEW REFERENCE 2.0 - 4.5 MG/DL [facility] RANGES Specimen Blood Performing Organization Address [facility] [place] Centercode Phone Number [facility] [address] [place] [address] * MAGNESIUM (10/20/2018 3:38 AM CURTAIN DRIER) [facility] Magnesium 2.6 1.6 - 2.6 mg/dL [facility] Specimen Blood Performing Organization Address [facility] [place] Center[facility] Phone Number [facility] [address] [place] [address] * CBC AND DIFF (10/20/2018 3:38 AM CURTAIN DRIER) [facility] White Blood 14.2 (H) 4.5 - 11.0 [...] Basophil Count Specimen Blood Performing Organization Address [facility] [place] Centercode Phone Number [facility] [address] [place] [address] * BASIC METABOLIC PANEL (10/20/2018 3:38 AM CURTAIN DRIER) Sodium 146 137 - 147 MMOL/L [facility] Potassium 3.9 3.5 - 5.1 MMOL/L [facility] Chloride 112 (H) 98 - 110 MMOL/L [facility] CO2 28 21 - 30 MMOL/L [facility] Anion Gap 6 3 - 12 [facility] Glucose 142 (H) 70 - 100 MG/DL [facility] Blood Urea 13 7 - 25 MG/DL [facility] Nitrogen Creatinine 0.50 0.4 - 1.00 MG/DL [facility] Calcium 8.7 8.5 - 10.6 MG/DL [facility] eGFR Non >60 >60 mL/min MAIN LAB Comment: Maltese The eGFR is not validated for use in drug dosing adjustments.Continue to use estimated creatinine clearance per dosing reference text.Please contact the Clinical Pharmacist for questions. eGFR >60 >60 mL/min MAIN LAB Maltese Comment: The eGFR is not validated for use in drug dosing adjustments.Continue to use estimated creatinine clearance per dosing reference text.Please contact the Clinical Pharmacist for questions. Specimen Blood Performing Organization Address City/[facility]/Zipcode Phone Number [facility] [address] [place] [address] * GRAM STAIN (10/20/2018 1:28 AM CURTAIN DRIER) Battery Name GRAM STAIN MAIN LAB Specimen SWAB MAIN LAB Description WOUND LEFT LEG Special NONE MAIN LAB Requests Gram Stain NO NEUTROPHILS SEEN [facility] NO ORGANISMS SEEN Report Status FINAL [facility] 10/20/2018 Specimen Swab Performing Organization Address City/[facility]/Zipcode Phone Number [facility] [address] [place] [address] * CULTURE-WOUND/TISSUE/FLUID(AEROBIC ONLY)W/SENSITIVITY (10/20/2018 1:28 AM CURTAIN DRIER ) Battery Name ROUTINE CULTURE MAIN LAB [...] Four colonies pseudomonas aeruginosa Performing Organization Address City/[facility] Phone Number MAIN LAB [address] [place] [address] * GRAM STAIN (10/20/2018 1:07 AM CURTAIN DRIER) Battery Name GRAM STAIN MAIN LAB Specimen TRACHEAL ASPIRATE MAIN LAB Description Special NONE MAIN LAB Requests Gram Stain LESS THAN 10/LPF [facility] NEUTROPHILS LESS THAN 10/LPF SQUAMOUS EPITHELIAL CELLS NO ORGANISMS SEEN Report Status FINAL MAIN LAB 10/20/2018 Specimen Tracheal Aspirate Performing Organization Address [facility] [place] Centercode Phone Number MAIN LAB [address] [place] [address] * CULTURE-RESP,LOWER W/SENSITIVITY (10/20/2018 1:07 AM CURTAIN DRIER) Battery Name LOWER RESP CULTURE MAIN LAB Specimen TRACHEAL ASPIRATE MAIN LAB Description Special NONE MAIN LAB Requests Direct Gram LESS THAN 10/LPF MAIN LAB Stain NEUTROPHILS LESS THAN 10/LPF SQUAMOUS EPITHELIAL CELLS NO ORGANISMS SEEN Culture Moderate growth MAIN LAB NO SIGNIFICANT CHELSEY Report Status FINAL MAIN LAB 10/22/2018 Specimen Tracheal Aspirate Performing Organization Address [facility] [place] Centercode Phone Number MAIN LAB [address] [place] [address] * BLOOD GASES, ARTERIAL (10/20/2018 1:01 AM CURTAIN DRIER) pH-Arterial 7.32 (L) 7.35 - 7.45 [facility] pCO2-Arterial 58 (H) 35 - 45 MMHG [facility] pO2-Arterial 74 (L) 80 - 100 MMHG [facility] Base 2.6 MMOL/L [facility] Excess-Arterial O2 Sat-Arterial 92.5 (L) 95 - 99 % [facility] Bicarbonate-ART 26.7 21 - 28 MMOL/L [facility] -[place]arl Specimen Blood, arterial - Blood Performing Organization Address City/State/Zipcode Phone Number [facility] [address] [place] [address] * CT HEAD WO CONTRAST (10/20/2018 12:45 AM CURTAIN DRIER) Impressions Performed At 1.Right inferior temporal lobe [...] Interface, Radiant Results - 10/20/2018 8:[address] HEAD WITHOUT CONTRAST HISTORY: 58 years [...] on 10/20/2018 7:49 AM. Performing Organization Address City/[facility] Centercode Phone Number [facility] RAD RESULTS * CULTURE-BLOOD W/SENSITIVITY (10/20/2018 12:12 AM CURTAIN DRIER) Battery Name BLOOD CULTURE [facility] Specimen BLOOD [facility] Description RIGHT RADIAL Special NONE [facility] Requests Culture NO GROWTH 5 DAYS [facility] Report Status FINAL [facility] 10/26/2018 Specimen Blood Performing Organization Address [facility] Phone Number [facility] [address] [place] [address] * CULTURE-BLOOD W/SENSITIVITY (10/20/2018 12:11 AM CURTAIN DRIER) Battery Name BLOOD CULTURE [facility] Specimen BLOOD [facility] Description LEFT RADIAL Special NONE [facility]IN [facility] Requests Culture NO GROWTH 5 DAYS [facility] Report Status FINAL [facility] 10/26/2018 Specimen Blood Performing Organization Address [facility] [place] Phone Number MAIN LAB [address] [place] [address] * CHEST SINGLE VIEW (10/19/2018 11:45 PM CURTAIN DRIER) Impressions Performed At 1. Tubes and lines [...] Interface, Radiant Results - 10/20/2018 10:12 AM CURTAIN DRIER CHEST SINGLE VIEW Clinical Indication: Female, 58 [...] Abiel Don M.D. on 10/20/2018 8:40 AM. Performing Organization Address [facility] [place] Phone Number [facility] RESULTS * PHENCYCLIDINES-URINE RANDOM (10/19/2018 11:36 PM CURTAIN DRIER) Phencyclidine NEG NEG-NEG MAIN LAB (PCP) Comment: RESULTS WERE OBTAINED BY IMMUNOASSAY AND ARE PRESUMPTIVE ONLY. POSITIVE INDICATES THE PRESENCE OF SUBSTANCE WITH CHARACTERISTICS SIMILAR TO DRUG-DRUG CLASS OR METABOLITE IN CONC. EQUAL TO OR EXCEEDING VALUES LISTED. PHENCYCLIDINE (PCP)25 NG/ML Specimen Urine - Urine Performing Organization Address [facility] [place] Phone Number [facility] [address] [place] [address] * OPIATES-URINE RANDOM (10/19/2018 11:36 PM CURTAIN DRIER) Opiates-Urine NEG NEG-NEG [facility] Comment: RESULTS WERE OBTAINED BY IMMUNOASSAY AND ARE PRESUMPTIVE ONLY. POSITIVE INDICATES THE PRESENCE OF SUBSTANCE WITH CHARACTERISTICS SIMILAR TO DRUG-DRUG CLASS OR METABOLITE IN CONC. EQUAL TO OR EXCEEDING VALUES LISTED. OPIATES 2000 NG/ML Specimen Urine - Urine Performing Organization Address [facility] [place] Phone Number [employer] MAIN LAB [address] [place] [address] * COCAINE-URINE RANDOM (10/19/2018 11:36 PM CURTAIN DRIER) Cocaine-Urine NEG NEG-NEG MAIN LAB Comment: RESULTS WERE OBTAINED BY IMMUNOASSAY AND ARE PRESUMPTIVE ONLY. POSITIVE INDICATES THE PRESENCE OF SUBSTANCE WITH CHARACTERISTICS SIMILAR TO DRUG-DRUG CLASS OR METABOLITE IN CONC. EQUAL TO OR EXCEEDING VALUES LISTED. COCAINE 300 NG/ML Specimen Urine - Urine Performing Organization Address [facility] [place] Phone Number MAIN LAB [address] [place] [address] * CANNABINOIDS-URINE RANDOM (10/19/2018 11:36 PM CURTAIN DRIER) THC NEG NEG-NEG MAIN LAB Comment: RESULTS WERE OBTAINED BY IMMUNOASSAY AND ARE PRESUMPTIVE ONLY. POSITIVE INDICATES THE PRESENCE OF SUBSTANCE WITH CHARACTERISTICS SIMILAR TO DRUG-DRUG CLASS OR METABOLITE IN CONC. EQUAL TO OR EXCEEDING VALUES LISTED. CANNABINOIDS 50 NG/ML Specimen Urine - Urine Performing Organization Address [facility] Phone Number [facility] [address] [place] [address] * BENZODIAZEPINES-URINE RANDOM (10/19/2018 11:36 PM CURTAIN DRIER) Benzodiazepines POS (A) NEG-NEG MAIN LAB Comment: RESULTS WERE OBTAINED BY IMMUNOASSAY AND ARE PRESUMPTIVE ONLY. POSITIVE INDICATES THE PRESENCE OF SUBSTANCE WITH CHARACTERISTICS SIMILAR TO DRUG-DRUG CLASS OR METABOLITE IN CONC. EQUAL TO OR EXCEEDING VALUES LISTED. BENZODIAZEPINES 200 NG/ML Specimen Urine - Urine Performing Organization Address [facility] Phone Number [facility] [address] [place] [address] * BARBITURATES-URINE RANDOM (10/19/2018 11:36 PM CURTAIN DRIER) Barbiturates,Ur POS (A) NEG-NEG MAIN LAB ine Comment: RESULTS WERE OBTAINED BY IMMUNOASSAY AND ARE PRESUMPTIVE ONLY. POSITIVE INDICATES THE PRESENCE OF SUBSTANCE WITH CHARACTERISTICS SIMILAR TO DRUG-DRUG CLASS OR METABOLITE IN CONC. EQUAL TO OR EXCEEDING VALUES LISTED. BARBITURATES 200 NG/ML Specimen Urine - Urine Performing Organization Address [facility] [place] Phone Number MAIN LAB [address] [place] [address] * AMPHETAMINES-URINE RANDOM (10/19/2018 11:36 PM CURTAIN DRIER) Amphetamines NEG NEG-NEG [facility] Comment: RESULTS WERE OBTAINED BY IMMUNOASSAY AND ARE PRESUMPTIVE ONLY. POSITIVE INDICATES THE PRESENCE OF SUBSTANCE WITH CHARACTERISTICS SIMILAR TO DRUG-DRUG CLASS OR METABOLITE IN CONC. EQUAL TO OR EXCEEDING VALUES LISTED. AMPHETAMINES 1000 NG/ML Specimen Urine - Urine Performing Organization Address [facility] [place] Phone Number MAIN LAB [address] [place] [address] * PHOSPHORUS (10/19/2018 11:36 PM CURTAIN DRIER) Phosphorus 2.8Comment: NOTE NEW REFERENCE 2.0 - 4.5 MG/DL [facility] MAIN [facility] RANGES Specimen Blood Performing Organization Address [facility] [place] Phone Number MAIN LAB [address] [place] [address] * MAGNESIUM (10/19/2018 11:36 PM CURTAIN DRIER) Magnesium 1.9 1.6 - 2.6 mg/dL [facility] Specimen Blood Performing Organization Address [facility] Phone Number MAIN LAB [address] [place] [address] * IONIZED CALCIUM (10/19/2018 11:36 PM CURTAIN DRIER) Ionized Calcium 1.21 1.0 - 1.3 MMOL/L [facility]IN [facility] Specimen Blood Performing Organization Address [facility] [place] Phone Number [facility] [address] [place] [address] * LACTIC ACID(LACTATE) (10/19/2018 11:36 PM CURTAIN DRIER) Lactic Acid 0.9 0.5 - 2.0 MMOL/L [facility] Specimen Blood Performing Organization Address [facility] Phone Number [facility] [address] [place] [address] * COMPREHENSIVE METABOLIC PANEL (10/19/2018 11:36 PM CURTAIN DRIER) Sodium 144 137 - 147 MMOL/L [facility] [...] >60 >60 mL/min [facility] Comment: Maltese The eGFR is not validated for use in drug dosing adjustments.Continue to use estimated creatinine clearance per dosing reference text.Please contact the Clinical Pharmacist for questions. eGFR >60 >60 mL/min [facility] Maltese Comment: The eGFR is not validated for use in drug dosing adjustments.Continue to use estimated creatinine clearance per dosing reference text.Please contact the Clinical Pharmacist for questions. Specimen Blood Performing Organization Address City/[facility]/Zipcode Phone Number [facility] [address] [place] [address] * PROTIME INR (PT) (10/19/2018 11:36 PM CURTAIN DRIER) Pathologist [facility] INR 1.0 0.8 - 1.2 [facility] Specimen Blood Performing Organization Address City/[facility]/Zipcode Phone Number [facility] [address] [place] [address] * CBC AND DIFF (10/19/2018 11:36 PM CURTAIN DRIER) Pathologist [facility] White Blood 13.0 (H) 4.5 - 11.0 K/UL [facility] Cells RBC 3.11 (L) 4.0 - 5.0 M/UL [facility] Hemoglobin 9.8 (L) 12.0 - 15.0 GM/DL [facility] Hematocrit 29.4 (L) 36 - 45 % [facility] MCV 94.3 80 - 100 FL [facility] MCH 31.5 26 - 34 PG [facility] MCHC 33.4 32.0 - 36.0 G/DL [facility] RDW 14.6 11 - 15 % MAIN LAB Platelet Count 299 150 - 400 K/UL [facility] MPV 8.6 7 - 11 FL [...] Organization Address City/State/Zipcode Phone Number MAIN LAB [address] [place] [address] * TELEMETRY STRIPS-SCAN (10/19/2018 12:00 AM CURTAIN DRIER) Narrative Performed At Ordered by an unspecified provider. * ECG-SCAN (10/19/2018 12:00 AM CURTAIN DRIER) Narrative Performed At Ordered by an unspecified provider. documented in this encounter Visit Diagnoses Diagnosis Altered mental status, unspecified altered mental status type documented in this encounter Admitting Diagnoses Diagnosis Pneumocephalus Other conditions of brain documented in this encounter Administered Medications Action Date Dose Rate Site Medication Order MAR Action 11/03/2018 12:50 PM CDT 650 mg acetaminophen [...] ACETAMINOPHEN DOSE NOT TO EXCEED 4GM DAILY, 11/03/2018 8:55 AM CDT 500 mg ascorbic acid (VITAMIN C) tablet 500 mg Given 500 mg, Per NG tube, DAILY, 30 doses, First dose on Trinh 10/25/18 at 1645, Last dose on Mon11/23/18 at 0900 500 mg Given 11/02/2018 8:28 AM CDT 500 mg Given 11/01/2018 8:54 AM CDT 11/03/2018 8:55 AM CDT 81 mg aspirin chewable tablet 81 mg Given 81 mg, Per OG Tube, DAILY, First dose on 10/20/18 at 0900, Until Discontinued 81 mg Given 11/02/2018 8:28 AM CDT 81 mg Given 11/01/2018 8:54 AM CDT 11/02/2018 8:07 PM CDT 20 mg atorvastatin (LIPITOR) tablet 20 mg Given 20 mg, Per OG Tube, AT BEDTIME DAILY, First dose on 10/20/18 at 0030, Until Discontinued 20 mg Given 10/31/2018 8:27 PM CDT 20 mg Given 10/30/2018 8:08 PM CDT 10/29/2018 3:55 PM CDT 1 Dose Ear, Behind bacitracin topical ointment Given INTRA-PROCEDURE MED, Starting 10/29/18 at 1555, Until 10/29/18 at 1641, Intra-op 11/03/2018 7:50 AM CDT 0.5 mg budesonide respule (PULMICORT) nebulizer Given solution 0.5 mg 0.5 mg, Inhalation, RT TWICE DAILY, First dose on 10/28/18 at 1800, Until Discontinued, When administered by RT, will be per RT policy., 0.5 mg Given 11/02/2018 9:09 PM CDT 0.5 mg Given 11/02/2018 8:38 AM CDT calcium gluconate 1 g in sodium chloride 0.9% (NS) 110 mL IVPB (MB+) 1 g, Intravenous, 110 mL, Administer over 1 Hours, NEEDED (GENERAL INTERNIST AND PHYSICIAN LEADER FROM RX), Starting 10/20/18 at 0145, Until 11/03/18 at 1617, Other..., For calcium replacement, see [...] CDT Given 11/02/2018 8:44 AM CDT 10/31/2018 8:43 AM CDT 100 mg docusate (COLACE) oral solution 100 mg Given 100 mg, Per OG Tube, TWICE DAILY, First dose on Mon10/19/18 at 2330, Until Discontinued, Hold for loose stools, 100 mg Given 10/30/2018 8:09 PM CDT 100 mg Given 10/29/2018 8:25 AM CDT 11/03/2018 8:51 AM CDT 20 mg famotidine (PEPCID) oral suspension 20 Given mg 20 mg, Per NG tube, TWICE DAILY, First dose on Trinh 10/25/18 at 2100, Until Discontinued 20 mg Given 11/02/2018 8:07 PM CDT 20 mg Given 11/02/2018 8:27 AM CDT 11/03/2018 5:32 AM CDT 25 mcg fentaNYL citrate PF (SUBLIMAZE) Given injection 25-50 mcg 25-50 mcg, Intravenous, EVERY 1 HOUR PRN, Starting 10/29/18 at 1800, Until 11/03/18 at 1617, Pain Injectable 50 mcg Given 11/02/2018 5:48 PM CDT 50 mcg Given 11/02/2018 3:58 PM CDT 11/03/2018 5:32 AM CDT 5,000 Units Abdomen:RLQ heparin (porcine) PF syringe 5,000 Units Given 5,000 Units, Subcutaneous, EVERY 8 HOURS, First dose on 10/30/18 at 1400, Until Discontinued, NOTE: This is a HIGH ALERT Medication., 5,000 Units Abdominal Tissue Given 11/02/2018 9:18 PM CDT 5,000 Units Abdominal Tissue Given 11/02/2018 1:45 PM CDT 10/29/2018 4:01 PM CDT 3 mL Neck lidocaine 1%/EPINEPHrine 1:100,000 Given injection INTRA-PROCEDURE MED, Starting 10/29/18 at 1451, Until 10/29/18 at 1641, Intra-op 4 mL Ear, Behind Given 10/29/2018 2:51 PM CDT 11/01/2018 7:22 AM CDT 1 g 100 [...] 3 mg Given 10/31/2018 8:28 PM CDT 11/03/2018 8:54 AM CDT 37.5 mg metoprolol(#) (LOPRESSOR) solution 37.5 Given mg 37.5 mg, Feeding Tube, TWICE DAILY, First dose on Mon11/03/18 at 0900, Until Discontinued, Hold for heart rate < 60 bpm or systolic BP < 90, 10/29/2018 8:25 AM CDT 10 mL milk of magnesia (CONC) oral suspension Given 10 mL 10 mL, Per OG Tube, DAILY, First dose on Mon10/20/18 at 0900, Until Discontinued, May hold if BM within 24 hours of dose. 10 mL CONC=30 mL MOM, 10 mL Given 10/28/2018 8:27 AM CDT 10 mL Given 10/22/2018 8:00 AM CDT 10/29/2018 3:55 PM CDT 4 drops Other neomycin/polymyxin/hydrocortisone Given (CORTISPORIN) otic solution INTRA-PROCEDURE MED, Starting 10/29/18 at 1555, Until Mon10/29/18 at 1641, Intra-op 10/28/2018 8:42 PM CDT 1 patch Arm, Left nicotine (NICODERM CQ STEP 1) 21 mg/day Patch/Topica patch 1 patch l Applied 1 patch, Transdermal, Administer over 24 Hours, DAILY, First dose on 10/20/18 at 0100, Until Discontinued 1 patch Arm, Left Patch/Topical Applied 10/27/2018 10:00 PM CDT 1 patch Arm, Left Patch/Topical Applied 10/26/2018 8:42 PM CDT 11/03/2018 1:11 PM CDT 10 mg [...] 1 capsule 1 capsule, Feeding Tube, NEEDED (GENERAL INTERNIST AND PHYSICIAN LEADER FROM RX), Starting 10/21/18 at 0733, Until [...] physician if tube remains occluded following administration., 11/03/2018 8:52 AM CDT 20 mEq potassium [...] replacements. Do NOT break or crush tablet, 11/02/2018 8:07 PM CDT 1 mg risperiDONE [...] 50 mg Given 10/30/2018 8:08 PM CDT 11/03/2018 9:45 AM CDT 220 mg zinc sulfate capsule 220 mg Given 220 mg, Per NG tube, DAILY, 14 doses, First dose on Mon10/25/18 at 1645, Last dose on Mon11/07/18 at 0900, Each cap delivers 50mg elemental zinc., 220 mg Given 11/02/2018 8:28 AM CDT 220 mg Given 11/01/2018 8:45 AM CDT documented in this encounter
--- OUTSIDE RECORDS SUMMARY | 2018-12-02 20:14 | XMS REPORT | Encounter Summary ---
Author Author [facility] Organization [facility] Address Unknown Phone Unavailable Care Team Providers Care Shampoo Person Name Role Phone Tamia Fonseca MD PCP Encounter Details Care Team Description Date Type Department Jose Whalen SRNA 10/20/[address] [address] Anesthesia Record Responsible Anesthesiologist Anesthesia Start Time Anesthesia Stop Time Procedure Name 2-D + DOPPLER ECHOCARDIOGRAM No events on file. Meds * No agents on file. * No blood administrations on file. No LDAs on file. documented in this encounter Social History Date [...] history available. documented as of this encounter Plan of Treatment Not on filedocumented as of this encounter Visit Diagnoses Not on filedocumented in this encounter
--- OUTSIDE RECORDS SUMMARY | 2018-12-02 20:14 | XMS REPORT | Encounter Summary ---
Author Author [facility] Organization [facility] Address Unknown Phone Unavailable Care Team Providers Care Research Project Coordinator Name Role Phone Tamia Fonseca MD PCP Encounter Details Care Team Description Date Type Department Arlin Black CRNA [id number] [place] [address] [phone] 10/23/2018 Anesthesia [facility] [address] [facility] [id number] [place] [address] Anesthesia Record Responsible Anesthesiologist Anesthesia Start Time Anesthesia Stop Time Procedure Name TRANSESOPHAGEAL ECHOCARDIOGRAM No events on file. Meds * [...]
--- OUTSIDE RECORDS SUMMARY | 2018-12-02 20:14 | XMS REPORT | Encounter Summary ---
Author Author [facility] Organization [facility] Address Unknown Phone Unavailable Care Team Providers Care Paste Up Copy Camera Operator Name Role Phone PCP Unavailable Encounter Details Care Team Description Date Type Department 10/18/2018 Hospital [facility] Encounter [facility] [address] [address] Social History Date Tobacco Use Types Packs/Day Years Used Never Assessed Sex Assigned at Date Recorded Not on file Industry Job Start Date Occupation Not on file Not on file Not on file Travel End Travel History Travel Start No recent travel history available. documented as of this encounter Plan of Treatment Not on filedocumented as of this encounter Procedures Comments Procedure Name Priority Date/Time Associated Diagnosis GENERAL RAD CHEST Routine 10/18/2018 Diagnosis unknown EXTERNAL IMAGING 12:00 AM COTTON WRINGER documented in this encounter Results * GENERAL RAD CHEST EXTERNAL IMAGING (10/18/2018 12:00 AM COTTON WRINGER) Narrative Performed At This order has been auto finalized and does not contain a result. documented in this encounter Visit Diagnoses Diagnosis Diagnosis unknown Other unknown and unspecified cause of morbidity or mortality documented in this encounter
--- OUTSIDE RECORDS SUMMARY | 2018-12-02 20:14 | XMS REPORT | Encounter Summary ---
Author Author [facility] Organization [facility] Address Unknown Phone Unavailable Care Team Providers Care Vendor Management Associate Name Role Phone Tamia Fonseca MD PCP Encounter Details Care Team Description Date Type Department 10/19/2018 Hospital [facility] [address] [address] Social History Date Tobacco Use Types Packs/Day Years Used Never Assessed Sex Assigned at Date Recorded Not on file Industry Job Start Date Occupation Not on file Not on file Not on file Travel End Travel History Travel Start No recent travel history available. documented as of this encounter Medications at Time of Discharge [...] NG tube route oral suspension twice daily. 11/03/2018 heparin (porcine) PF Inject 0.5 mL [...] Per NG capsule tube route daily. 11/03/2018 acetic acid 0.25 % by Irrigation 0 irrigation solution route daily. 11/03/2018 11/05/2018 cefepime (MAXIPIME) 2 Administer 0 g/20 mL 2 g in sodium two g through chloride 0.9% (NS) 0.9 % vein every 8 100 mL IVPB (MB+) hours for 2 days. 11/03/2018 gabapentin (NEURONTIN) Take 800 mg 0 800 mg tablet by mouth four times daily. 11/03/2018 ondansetron (ZOFRAN) 4 mg Take 8 mg by 0 tablet mouth twice daily as needed for Nausea or Vomiting. 11/03/2018 varenicline (CHANTIX Take 1 mg by 0 CONTINUING MONTH BOX) 1 mouth twice mg tablet daily. Take with 8 oz of water and after a meal. documented as of this encounter Plan of Treatment Not on filedocumented as of this encounter Procedures Comments Procedure Name Priority Date/Time Associated Diagnosis CTA HEAD EXTERNAL IMAGING Routine 10/19/2018 Diagnosis unknown 6:38 PM STRATEGIC SOURCING MANAGER documented in this encounter Results * CTA HEAD EXTERNAL IMAGING (10/19/2018 6:38 PM STRATEGIC SOURCING MANAGER) Narrative Performed At This order has been auto finalized and does not contain a result. documented in this encounter Visit Diagnoses Diagnosis Diagnosis unknown Other unknown and unspecified cause of morbidity or mortality documented in this encounter
--- OUTSIDE RECORDS SUMMARY | 2018-12-02 20:14 | XMS REPORT | Encounter Summary ---
Author Author [facility] Organization [facility] Address Unknown Phone Unavailable Care Team Providers Care Applications Support Specialist Name Role Phone Tamia Fonseca MD PCP Encounter Details Care Team Description Date Type Department 10/19/2018 Hospital [facility] [address] [address] Social History Date Tobacco Use Types Packs/Day [...] Date/Time Associated Diagnosis GENERAL RAD CHEST Routine 10/19/2018 Diagnosis unknown EXTERNAL IMAGING 6:39 PM CONCRETE PUMP OPERATOR documented in this encounter Results * GENERAL RAD CHEST EXTERNAL IMAGING (10/19/2018 6:39 PM CONCRETE PUMP OPERATOR) Narrative Performed At This order has been auto finalized and does not contain a result. documented in this encounter Visit Diagnoses Diagnosis Diagnosis unknown Other unknown and unspecified cause of morbidity or mortality documented in this encounter
--- OUTSIDE RECORDS SUMMARY | 2018-12-02 20:14 | XMS REPORT | Encounter Summary ---
Author Author [facility] Organization [facility] Address Unknown Phone Unavailable Care Team Providers Care Geotechnical Laboratory Technician Name Role Phone Tamia Fonseca MD PCP Reason for Visit * Auth/Cert Referred By Contact Referred To Contact Status Reason Specialty Diagnoses / Procedures Diagnoses Pneumocephalus altered mental status Encounter Details Care Team Description Date Type Department Farhad Allen MD 4000 [facility] 1st [facility] [id number] [place], [place] [id number] 10/23/2018 [facility] 4000 [facility] [id number] [place] [address] Social History Date Tobacco Use Types Packs/Day [...] Vital Signs Time Taken Vital Sign Reading 10/23/2018 3:51 PM CDT Blood Pressure 124/68 - Pulse - - Temperature - - Respiratory Rate - - Oxygen Saturation - - Inhaled Oxygen - Concentration 10/23/2018 3:51 PM CDT Weight 54.1 kg (119 lb 4.3 oz) 10/23/2018 3:51 PM CDT Height 163 cm (5' 4.17") 10/23/2018 3:51 PM CDT Body Mass Index 20.36 documented in this encounter Medications at Time [...] Irrigation 0 irrigation solution route daily. 11/03/2018 amiodarone (CORDARONE) Take 200 mg 0 200 mg tablet by mouth daily. Take with food. 11/03/2018 aspirin 81 mg chewable Chew 81 mg by 0 tablet mouth daily. Take with food. 11/03/2018 atorvastatin (LIPITOR) 20 Take 20 mg by 0 mg tablet mouth at bedtime daily. 11/03/2018 budesonide respule Inhale 1 mg 0 (PULMICORT) 0.5 mg/2 mL solution by nebulizer solution nebulizer as directed twice daily. 11/03/2018 11/05/2018 cefepime (MAXIPIME) 2 Administer 0 g/20 mL 2 g in sodium two g through chloride 0.9% (NS) 0.9 % vein every 8 100 mL IVPB (MB+) hours for 2 days. 11/03/2018 clopiDOGrel (PLAVIX) 75 Take 75 mg by 0 mg tablet mouth daily. 11/03/2018 gabapentin (NEURONTIN) Take 800 mg 0 800 mg tablet by mouth four times daily. 11/03/2018 HYDROcodone/acetaminophen Take 1 tablet 0 (NORCO) 5/325 mg tablet by mouth every 6 hours as needed for Pain 11/03/2018 ipratropium/albuterol Inhale 1 puff 0 (COMBIVENT RESPIMAT) by mouth into 20-100 mcg/actuation mist the lungs inhaler every 4 hours as needed. 11/03/2018 lisinopril (PRINIVIL; Take 5 mg by 0 ZESTRIL) 5 mg tablet mouth daily. 11/03/2018 melatonin 3 mg tab Take 5 mg by 0 mouth at bedtime daily. 11/03/2018 metoprolol XL (TOPROL XL) Take 25 mg by 0 25 mg extended release mouth daily. tablet 11/03/2018 nicotine (NICODERM CQ Apply 1 patch 0 STEP 1) 21 mg/day to top of patchIndications: Smoking skin as Cessation directed every 24 hours. Rotate patch location. 11/03/2018 ondansetron (ZOFRAN) 4 mg Take 8 mg by 0 tablet mouth twice daily as needed for Nausea or Vomiting. 11/03/2018 oxyCODONE/acetaminophen Take 1 tablet 0 (PERCOCET; ENDOCET; by mouth ROXICET) 5/325 mg tablet every 6 hours as needed for Pain 11/03/2018 polyethylene glycol 3350 Take 17 g by 0 (MIRALAX) 17 g packet mouth twice daily. 11/03/2018 potassium chloride SR Take 20 mEq 0 (K-DUR) 20 mEq tablet by mouth daily. Take with a meal and a full glass of water. 11/03/2018 sertraline (ZOLOFT) 50 mg Take 50 mg by 0 tablet mouth at bedtime daily. 11/03/2018 varenicline (CHANTIX Take 1 mg by 0 CONTINUING MONTH BOX) 1 mouth twice mg tablet daily. Take with 8 oz of water and after a meal. documented as of this encounter Progress Notes * Olimpia Robert RN - 10/23/2018 3:33 PM CDT ICU bedside JYOTSNA procedure: Probe in at 1430 bubble studies: 1455 & 1457 Probe out at 1520 handoff to primary RN post procedure * Olimpia Robert RN - 10/23/2018 1:54 PM CDT Pre-Operative Assessment for JYOTSNA or Cardioversion Date of Service: 10/23/2018 Rocío Mora is a 58 y.o. y.o. female. : 1960 MRN# : [id number] Procedure to be performed: JYOTSNA Expected Procedure Date: 10/23/2018 Indication: source of stroke Patient appears alert and oriented: Yes NPO: for greater than 8 hours Inpatient IV status: PIV in place Isolation status: droplet precautions Last JYOTSNA date: None---- none on file Last Cardioversion date: None---- none on file Anticoagulation Results Anticoagulant: none Missed dose: N/A Last MAC INR Flow Sheet Entry: Last recorded Lab results: INR Date Value Ref Range Status 10/19/2018 1.0 0.8 - 1.2 Final No results found for: PTT Allergies No Known Allergies Vitals Estimated body mass index is 19.98 kg/m as calculated from the following: Height as of 10/20/18: 1.626 m (5' 4"). Weight as of 10/21/18: 52.8 kg (116 lb 6.5 oz). Diagnostic Tests White Blood Cells Date Value Ref Range Status 10/23/2018 16.9 (H) 4.5 - 11.0 K/UL Final Hemoglobin Date Value Ref Range Status 10/23/2018 8.2 (L) 12.0 - 15.0 GM/DL Final Hematocrit Date Value Ref Range Status 10/23/2018 25.2 (L) 36 - 45 % Final Platelet Count Date Value Ref Range Status 10/23/2018 312 150 - 400 K/UL Final Sodium Date Value Ref Range Status 10/23/2018 145 137 - 147 MMOL/L Final Potassium Date Value Ref Range Status 10/23/2018 3.4 (L) 3.5 - 5.1 MMOL/L Final Magnesium Date Value Ref Range Status 10/23/2018 2.0 1.6 - 2.6 mg/dL Final Blood Urea Nitrogen Date Value Ref Range Status 10/23/2018 10 7 - 25 MG/DL Final Creatinine Date Value Ref Range Status 10/23/2018 0.33 (L) 0.4 - 1.00 MG/DL Final Glucose Date Value Ref Range Status 10/23/2018 121 (H) 70 - 100 MG/DL Final Blood Cultures Resulted Micro Last 72 Hrs No results found Echo procedures within the past 30 days: No results found. Device Information on File No results found for: GENERATOR, EPDEVTYP Current Medications Current Facility-Administered Medications on File Prior to Encounter Medication Dose Route Frequency Provider Last Rate Last Dose acetaminophen (TYLENOL) oral solution 650 mg 650 mg Per OG Tube Q6H PRN Lorena Rockwell, MARIBELL,PATHOLOGY MANAGER 650 mg at 10/22/182029 amiodarone (CORDARONE) tablet 200 mg 200 mg Per OG Tube QDAY Lorena Rockwell, MSN,PATHOLOGY MANAGER 200 mg at 10/23/18 0918 aspirin chewable tablet 81 mg 81 mg Per OG Tube QDAY Lorena Rockwell, MARIBELL, PATHOLOGY MANAGER 81 mg at 10/23/18 09 atorvastatin (LIPITOR) tablet 20 mg 20 mg Per OG Tube QHS Lorena Rockwell MSN,PATHOLOGY MANAGER 20 mg at 10/22/182029 budesonide respule (PULMICORT) nebulizer solution 1 mg 1 mg Inhalation BID Lorena Rockwell, MSN,PATHOLOGY MANAGER 1 mg at 10/23/18 0813 calcium gluconate 1 g in sodium chloride 0.9% (NS) 110 mL IVPB (MB+) 1 g Intravenous PRN (Office Chair Assembler from Rx) Lorena Rockwell MSN,PATHOLOGY MANAGER cefepime (MAXIPIME) 2 g in sodium chloride 0.9% (NS) 100 mL IVPB (MB+) 2 g Intravenous Q8H* Benny Sepulveda MD 2 g at 10/23/18 1319 chlorhexidine gluconate (PERIDEX) 0.12 % solution 15 mL 15 mL Swish & Spit BID Pankaj Bunn MD 15 mL at 10/23/18 0919 collagenase (SANTYL) topical ointment Topical BID Pankaj Bunn MD docusate (COLACE) oral solution 100 mg 100 mg Per OG Tube BID Kelton Zelaya MD 100 mg at 10/22/18 0800 fentaNYL citrate PF (SUBLIMAZE) injection 25-50 mcg 25-50 mcg Intravenous Q2H PRN Lorena Rockwell MSN,PATHOLOGY MANAGER 50 mcg at 10/20/18 1430 fluconazole (DIFLUCAN) 200 mg/NS 100 mL IVPB 200 mg Intravenous Q24H* Lorena Rockwell MSN,PATHOLOGY MANAGER 100 mL/hr at 10/22/18 1648 200 mg at 10/22/18 1648 heparin (porcine) PF syringe 5,000 Units 5,000 Units Subcutaneous Q8H Lorena Rockwell MSN,PATHOLOGY MANAGER 5,000 Units at 10/23/18 0641 ipratropium/albuterol (COMBIVENT RESPIMAT) inhaler 1 puff 1 puff Inhalation Q4H PRN Lorena Rockwell, MSN,PATHOLOGY MANAGER levETIRAcetam (KEPPRA) tablet 500 mg 500 mg Oral BID Pankaj Bunn MD 500 mg at 10/23/18 0918 LIDOCAINE HCL 10 MG/ML (1 %) IJ SOLN (Cabinet Override) NOW Stopped at 10/23/18 1335 magnesium sulfate 1 g/D5W 100 mL IVPB 1 g Intravenous PRN Lorena Rockwell , MARIBELL,PATHOLOGY MANAGER 100 mL/hr at 10/20/18 0237 1 g at 10/20/18 0237 metoprolol tartrate (LOPRESSOR) tablet 12.5 mg 12.5 mg Per OG Tube BID Lorena Rockwell MSN,PATHOLOGY MANAGER 12.5 mg at 10/23/18 0918 milk of magnesia (CONC) oral suspension 10 mL 10 mL Per OG Tube QDAY Kelton Zelaya MD 10 mL at 10/22/18 0800 nicotine (NICODERM CQ STEP 1) 21 mg/day patch 1 patch 1 patch Transdermal QDAY(21) Lorena Rockwell MSN,PATHOLOGY MANAGER 1 patch at 10/22/18 2028 oseltamivir (TAMIFLU) oral suspension 75 mg 75 mg Per NG tube BID Kelton Zelaya MD 75 mg at 10/23/18 0924 oxyCODONE (ROXICODONE) oral solution 5 mg 5 mg Per OG Tube Q4H PRN Lorena Rockwell, MSN,PATHOLOGY MANAGER 5 mg at 10/23/18 0641 pancrelipase 20,000 Units/ sodium bicarbonate 650 mg(#) (KU CLOG DESTROYER) for occluded feeding tube cap 1 capsule 1 capsule Feeding Tube PRN (Office Chair Assembler from Rx) Kelton Zelaya MD pantoprazole(#) (PROTONIX) suspension 40 mg 40 mg Per NG tube QDAY(21) Kelton Zelaya MD 40 mg at 10/22/182032 potassium chloride oral solution 20 mEq 20 mEq Per OG Tube QDAY Lorena Rockwell, MSN,PATHOLOGY MANAGER 20 mEq at 10/23/18 0918 potassium chloride SR (K-DUR) tablet 40-60 mEq 40-60 mEq Oral PRN Lorena Rockwell, MSN,PATHOLOGY MANAGER Or potassium chloride oral solution 40-60 mEq 40-60 mEq Per NG tube PRN Lorena Rockwell, MSN,PATHOLOGY MANAGER 40 mEq at 10/23/18 0641 propofol (DIPRIVAN) 10 mg/mL IV infusion 5-75 mcg/kg/min (Dosing Weight) Intravenous TITRATE Lorena Rockwell, MSN,PATHOLOGY MANAGER 8.1 mL/hr at 10/23/18 0956 25 mcg/ kg/min at 10/23/18 0956 senna/docusate (SENOKOT-S) solution 10 mL 10 mL Per OG Tube BID Kelton Zelaya MD 10 mL at 10/22/18 0800 sertraline (ZOLOFT) tablet 50 mg 50 mg SEE ADMIN INSTRUCTIONS QHS Lorena Rockwell, MSN,PATHOLOGY MANAGER 50 mg at 10/22/18 2030 sodium chloride 0.9 % infusion Intravenous Continuous Pankaj Bunn MD Stopped at 10/23/18 1234 vancomycin (VANCOCIN) 1,000 mg in dextrose 5% (D5W) 250 mL IVPB ([id number]) 1 g Intravenous Q12H* Provider, Pharmacy 250 mL/hr at 10/23/18 0919 1,000 mg at 10/23/18 0919 vancomycin, pharmacy to manage 1 each Service Per Pharmacy Amy Bunn MD Current Outpatient Medications on File Prior to Encounter Medication Sig Dispense Refill amiodarone (CORDARONE) 200 mg tablet Take 200 [...] 50 mg by mouth at bedtime daily. Past Medical History Past Medical History: Diagnosis Date Arthritis Asthma CAD (coronary artery disease) COPD (chronic obstructive pulmonary disease) (HCC) Depression Disruption or dehiscence of closure of sternum or sternotomy Edentulous 2016 Poor dentition Endometriosis Hyperlipidemia Hypertension, essential Non-healing wound of lower extremity Paroxysmal atrial fibrillation (HCC) Pneumothorax tripped over a Digital Lumens toy, had a pneumothorax, had lung surgery in hospital at [facility] Restless leg syndrome Past Surgical History Past Surgical History: Procedure Laterality Date HX CORONARY ARTERY BYPASS GRAFT HYSTERECTOMY OOPHORECTOMY ORTHOPEDIC SURGERY ligament repair in december 2017 VASCULAR SURGERY Social History Social History Tobacco Use Smoking status: Heavy Tobacco Smoker Packs/day: 2.00 Years: 45.00 Pack years: 90.00 Types: Cigarettes Smokeless tobacco: Former User Substance Use Topics Alcohol use: No Frequency: Never Drug use: Yes Types: Marijuana Additional Comments: bedside--- ICU Probe Assessment (only for JYOTSNA procedures): Positive for: patient sedated and intubated Sedation Assessment: Positive for: sedated, intubated, copd/asthma, smoker documented in this encounter H&P Notes * Sae Bonds MD - 10/23/2018 2:28 PM CDT Pre-Operative Assessment for JYOTSNA or Cardioversion Date of Service: 10/23/2018 Rocío Mora is a 58 y.o. y.o. female. : 1960 MRN# : [id number] History and Physical Exam I reviewed H&P from 10-19-18 . No changes noted. Assessment I reviewed: nurse pre-procedure assessment (including past medical history, allergies, medications, labs) NPO status Acceptable I assessed the patient's airways and noted: Patient intubated and sedated with propofol currently in the Neuro ICU Anesthesia provided with prn boluses of sedation by critical care nurses Consent was obtained from the patient's by telephone today. Physical Status Classification ([place] [employer] Anesthesiologists): Per Anesthesia Sedation/Medication Plan Sedation plan per Anesthesiology Sae Bonds MD, [facility] Department of Cardiovascular Medicine [facility] Pager [phone] documented in this encounter Plan of Treatment Not on filedocumented as of this encounter Procedures Comments Procedure Name Priority Date/Time Associated Diagnosis JYOTSNA W/O CONTRAST & W/ 3D Routine 10/23/2018 ON CART 3:51 PM CDT documented in this encounter Visit Diagnoses Not on filedocumented in this encounter
--- OUTSIDE RECORDS SUMMARY | 2018-12-02 20:14 | XMS REPORT | Encounter Summary ---
Author Author [facility] Organization [facility] Address Unknown Phone Unavailable Care Team Providers Care Hand Ii Tube Bender Name Role Phone PCP Unavailable Encounter Details Care Team Description Date Type Department 10/17/2018 Hospital [facility] En[facility] [address] [address] Social History Date Tobacco Use [...] Date/Time Associated Diagnosis GENERAL RAD CHEST Routine 10/17/2018 Diagnosis unknown EXTERNAL IMAGING 12:00 AM MOVABLE BULKHEAD INSTALLER documented in this encounter Results * GENERAL RAD CHEST EXTERNAL IMAGING (10/17/2018 12:00 AM MOVABLE BULKHEAD INSTALLER) Narrative Performed At This order has been auto finalized and does not contain a result. documented in this encounter Visit Diagnoses Diagnosis Diagnosis unknown Other unknown and unspecified cause of morbidity or mortality documented in this encounter
--- OUTSIDE RECORDS SUMMARY | 2018-12-02 20:14 | XMS REPORT | Encounter Summary ---
Author Author [facility] Organization [facility] Address Unknown Phone Unavailable Care Team Providers Care Corn Breeder Name Role Phone Tamia Fonseca MD PCP Encounter Details Care Team Description Date Type Department Rosalba Amezcua, MARI 10/23/2018 Telephone [facility] [address] [facility] [place] [address] Social History Date Tobacco Use Types Packs/Day [...] history available. documented as of this encounter Miscellaneous Notes * Telephone Encounter - Rosalba Amezcua, MARI - 10/23/2018 11:09 AM CDT Called and spoke with patients , Leonidas Mora, phone consent obtained for JYOTSNA , all questions answered. documented in this encounter Plan of Treatment Not on filedocumented as of this encounter Visit Diagnoses Not on filedocumented in this encounter
--- OUTSIDE RECORDS SUMMARY | 2018-12-02 20:14 | XMS REPORT | Encounter Summary ---
Author Author [facility] Organization [facility] Address Unknown Phone Unavailable Care Team Providers Care Home Coordinator Name Role Phone PCP Unavailable Encounter Details Care Team Description Date Type Department 10/17/2018 Hospital [facility] Encounter [facility] System [address] [address] Social History Date Tobacco Use [...] 10/17/2018 Diagnosis unknown EXTERNAL IMAGING 12:15 AM CONTACT LENS BLOCKER documented in this encounter Results * GENERAL RAD CHEST EXTERNAL IMAGING (10/17/2018 12:15 AM CONTACT LENS BLOCKER) Narrative Performed At This order has been auto finalized and does not contain a result. documented in this encounter Visit Diagnoses Diagnosis Diagnosis unknown Other unknown and unspecified cause of morbidity or mortality documented in this encounter
--- OUTSIDE RECORDS SUMMARY | 2018-12-02 20:15 | XMS REPORT | Encounter Summary ---
Author Author [facility] Organization [facility] Address Unknown Phone Unavailable Care Team Providers Care Automotive Window Tinter Name Role Phone PCP Unavailable Encounter Details Care Team Description Date Type Department 10/16/2018 Hospital [facility] Encounter Health System [address] [address] Social History Date Tobacco Use [...] Comments Procedure Name Priority Date/Time Associated Diagnosis CT CHEST EXTERNAL IMAGING Routine 10/16/2018 Diagnosis unknown 12:00 AM RN HOME HEALTH documented in this encounter Results * CT CHEST EXTERNAL IMAGING (10/16/2018 12:00 AM RN HOME HEALTH) Narrative Performed At This order has been auto finalized and does not contain a result. documented in this encounter Visit Diagnoses Diagnosis Diagnosis unknown Other unknown and unspecified cause of morbidity or mortality documented in this encounter
--- OUTSIDE RECORDS SUMMARY | 2018-12-02 20:15 | XMS REPORT | Encounter Summary ---
Author Author [facility] Organization [facility] Address Unknown Phone Unavailable Care Team Providers Care Gaming Cage Cashier Name Role Phone PCP Unavailable Encounter Details Care Team Description Date Type Department 10/16/2018 Hospital [facility] Encounter [facility] [address] [address] Social History Date Tobacco Use [...] Name Priority Date/Time Associated Diagnosis GENERAL RAD ABDOMEN Routine 10/16/2018 Diagnosis unknown EXTERNAL IMAGING 12:30 AM SLABBING MACHINE OPERATOR documented in this encounter Results * GENERAL RAD ABDOMEN EXTERNAL IMAGING (10/16/2018 12:30 AM SLABBING MACHINE OPERATOR) Narrative Performed At This order has been auto finalized and does not contain a result. documented in this encounter Visit Diagnoses Diagnosis Diagnosis unknown Other unknown and unspecified cause of morbidity or mortality documented in this encounter
--- OUTSIDE RECORDS SUMMARY | 2018-12-02 20:15 | XMS REPORT | Encounter Summary ---
Author Author [facility] Organization [facility] Address Unknown Phone Unavailable Care Team Providers Care Street Photographer Name Role Phone PCP Unavailable Encounter Details Care Team Description Date Type Department 10/16/2018 Hospital [facility] [address] [address] Social History Date Tobacco Use [...] Date/Time Associated Diagnosis GENERAL RAD CHEST Routine 10/16/2018 Diagnosis unknown EXTERNAL IMAGING 12:15 AM COUNTY AGENT documented in this encounter Results * GENERAL RAD CHEST EXTERNAL IMAGING (10/16/2018 12:15 AM COUNTY AGENT) Narrative Performed At This order has been auto finalized and does not contain a result. documented in this encounter Visit Diagnoses Diagnosis Diagnosis unknown Other unknown and unspecified cause of morbidity or mortality documented in this encounter
[2018-12-02 20:36] LABS: BASOPHILS # (AUTO) 0.1 10^3/uL (0.0-0.1); BASOPHILS % (AUTO) 1 % (0-10); EOSINOPHILS # (AUTO) 0.7 10^3/uL (0.0-0.3); EOSINOPHILS % (AUTO) 7 % (0-10); HEMATOCRIT 28 % (35-52); HEMOGLOBIN 9.2 G/DL (11.5-16.0); LYMPHOCYTES # (AUTO) 3.6 X 10^3 (1.0-4.0); LYMPHOCYTES % (AUTO) 35 % (12-44); MEAN CORPUSCULAR HEMOGLOBIN 30 PG (25-34); MEAN CORPUSCULAR HGB CONC 33 G/DL (32-36); MEAN CORPUSCULAR VOLUME 91 FL (80-99); MEAN PLATELET VOLUME 8.9 FL (7.4-10.4); MONOCYTES # (AUTO) 1.1 X 10^3 (0.0-1.0); MONOCYTES % (AUTO) 11 % (0-12); NEUTROPHILS # (AUTO) 4.9 X 10^3 (1.8-7.8); NEUTROPHILS % (AUTO) 47 % (42-75); PLATELET COUNT 318 10^3/uL (130-400); RED CELL DISTRIBUTION WIDTH 13.3 % (10.0-14.5); WHITE BLOOD COUNT 10.3 10^3/uL (4.3-11.0)
[2018-12-02 20:52] LABS: BUN/CREATININE RATIO 5; CALCIUM 8.9 MG/DL (8.5-10.1); CARBON DIOXIDE 17 MMOL/L (21-32); CHLORIDE 111 MMOL/L (98-107); CREATININE SERUM 0.59 MG/DL (0.60-1.30); GFR ESTIMATED > 60; GLUCOSE 110 MG/DL (70-105); MAGNESIUM 1.5 MG/DL (1.8-2.4); POTASSIUM 3.1 MMOL/L (3.6-5.0); SODIUM 141 MMOL/L (135-145)
[2018-12-02] MEDS ORDERED: POTA-51 PO (21:07)
[2018-12-02] MEDS ORDERED: MAGN400T6 PO (21:07)
[2018-12-02] MEDS ORDERED: KCL 10 MEQ TAB (MICRO K) PO ONE (21:15)
[2018-12-02] MEDS ORDERED: MAGNESIUM OXIDE (MAG-OX)400 MG TAB PO ONE (21:15)
[2018-12-02 21:21] VITALS: BP 141/54
== END 2018-12-02 21:21 | disposition home or self-care (01) ==
LOC: EDUNIT# 19:53 → ER 19:55
DX: L98.9 Disorder of the skin and subcutaneous tissue, unspecified (principal); R60.0 Localized edema; E87.6 Hypokalemia; E83.42 Hypomagnesemia; J44.9 Chronic obstructive pulmonary disease, unspecified; I25.10 Atherosclerotic heart disease of native coronary artery without angina pectoris; I25.2 Old myocardial infarction; E78.00 Pure hypercholesterolemia, unspecified; D64.9 Anemia, unspecified; I10 Essential (primary) hypertension; Z79.82 Long term (current) use of aspirin; Z87.891 Personal history of nicotine dependence; Z90.710 Acquired absence of both cervix and uterus; Z87.01 Personal history of pneumonia (recurrent); Z95.1 Presence of aortocoronary bypass graft
CPT/HCPCS: 36415; 80048; 83735; 83880; 85025; 99283

== ENCOUNTER → 2018-12-19 | Outpatient (CLI) | payer OTHER ==
[~2018-12-19] MED LIST changes: +GADOBUTROL 7.5 MMOL/7.5 ML (GADAVIST) VIAL IV ONE; +MAGN400T6 PO; +POTA-51 PO
--- NOTE | 2018-12-19 15:01 | Diagnostic Imaging Report ---
PROCEDURE: MR imaging of the brain with and without contrast. TECHNIQUE: Multiplanar, multisequence MR imaging of the brain was performed with and without contrast. INDICATION: Recent brain infection in October. The study is performed for further evaluation. COMPARISON: Correlation is made with CT angiogram of the head and neck from 10/19/2018. FINDINGS: Diffusion-weighted image does show a tiny focus of restriction in the left cerebellar hemisphere. It is uncertain if this could represent a microinfarct versus T2 shine through. No significant low signal on the ADC map is identified and this could represent shine through. Normal expected flow-voids in the carotid siphons are seen. Ventricles are normal in size. There are numerous foci of periventricular and subcortical white matter signal consistent with chronic microvascular ischemia. No midline shift is identified. No acute intra-axial or extra-axial hemorrhage is seen. No enhancing lesion or evidence of intracranial fluid collection is identified to suggest abscess. There is some increased T2 signal within the mastoid air cells bilaterally, greatest on the right. Corpus callosum is unremarkable. The sella and parasellar structures are unremarkable. IMPRESSION: Mastoid disease, right greater. No definite findings to suggest intracranial abscess is identified. Dictated by: Dictated on workstation # [id number]
== END ==
LOC: RAD 13:25
PROVIDERS: ATTEND Student in an Organized Health Care Education/Training Program
DX: H74.93 Unspecified disorder of middle ear and mastoid, bilateral (principal)
CPT/HCPCS: 70553

== ENCOUNTER 2018-12-21 07:40 | Outpatient (RCR) | payer BC, OTHER ==
[2018-11-22 15:30] VITALS: BP 103/54
[2018-11-22] MEDS: cefTRIAXone 2,000 MG/SWFI 20 ML IV PUSH IV NR ×2 (23:44)
[2018-11-22 23:47] VITALS: BP 92/53
[2018-11-23] MEDS: cefTRIAXone 2,000 MG/SWFI 20 ML IV PUSH IV NR ×2 (08:14)
[2018-11-23 08:25] VITALS: BP 130/53
[2018-11-23 20:13] VITALS: BP 113/69
[2018-11-23] MEDS: cefTRIAXone 2,000 MG/SWFI 20 ML IV PUSH IV SCH ×2 (20:13)
[2018-11-24] MEDS: cefTRIAXone 2,000 MG/SWFI 20 ML IV PUSH IV SCH ×4 (07:41→20:09)
[2018-11-24 07:49] VITALS: BP 97/40
[2018-11-24 21:30] VITALS: BP 103/57
[2018-11-25] MEDS: cefTRIAXone 2,000 MG/SWFI 20 ML IV PUSH IV SCH ×4 (08:13→19:58)
[2018-11-25 08:21] VITALS: BP 103/51
[2018-11-25 20:36] VITALS: BP 91/54
[2018-11-26] MEDS: cefTRIAXone 2,000 MG/SWFI 20 ML IV PUSH IV SCH ×4 (08:22→20:10)
[2018-11-26 08:37] LABS: HEMOGLOBIN 9.2 G/DL (11.5-16.0); MEAN PLATELET VOLUME 9.9 FL (7.4-10.4); RED CELL DISTRIBUTION WIDTH 12.9 % (10.0-14.5); WHITE BLOOD COUNT 9.9 10^3/uL (4.3-11.0)
[2018-11-26 08:45] VITALS: BP 95/45
[2018-11-26 08:52] LABS: CREATININE SERUM 0.71 MG/DL (0.60-1.30)
[2018-11-26 20:02] VITALS: BP 98/47
[2018-11-27 07:50] VITALS: BP 96/51
[2018-11-27] MEDS: cefTRIAXone 2,000 MG/SWFI 20 ML IV PUSH IV SCH ×4 (08:00→20:17)
[2018-11-27 20:21] VITALS: BP 100/57
[2018-11-28] MEDS: cefTRIAXone 2,000 MG/SWFI 20 ML IV PUSH IV SCH ×4 (08:01→20:00)
[2018-11-28 19:50] VITALS: BP 108/57
[2018-11-29] MEDS: cefTRIAXone 2,000 MG/SWFI 20 ML IV PUSH IV SCH ×4 (08:12→20:13)
[2018-11-29 08:18] VITALS: BP 111/48
[2018-11-29 20:45] VITALS: BP 113/56
[2018-11-30] MEDS: cefTRIAXone 2,000 MG/SWFI 20 ML IV PUSH IV SCH ×4 (08:07→20:10)
[2018-11-30 08:12] VITALS: BP 119/47
[2018-11-30 20:10] VITALS: BP 107/49
[2018-12-01] MEDS: cefTRIAXone 2,000 MG/SWFI 20 ML IV PUSH IV SCH ×4 (08:05→19:54)
[2018-12-01 08:16] VITALS: BP 99/41
[2018-12-01 20:00] VITALS: BP 108/56
[2018-12-02] MEDS: cefTRIAXone 2,000 MG/SWFI 20 ML IV PUSH IV SCH ×4 (08:11→19:45)
[2018-12-02 08:23] VITALS: BP 135/53
[2018-12-02 19:45] VITALS: BP 125/60
[2018-12-03] MEDS: cefTRIAXone 2,000 MG/SWFI 20 ML IV PUSH IV SCH ×4 (08:27→19:50)
[2018-12-03 08:45] VITALS: BP 134/70
[2018-12-03 08:54] LABS: HEMOGLOBIN 9.5 G/DL (11.5-16.0); MEAN PLATELET VOLUME 9.1 FL (7.4-10.4); RED CELL DISTRIBUTION WIDTH 13.6 % (10.0-14.5); WHITE BLOOD COUNT 8.9 10^3/uL (4.3-11.0)
[2018-12-03 09:08] LABS: BUN/CREATININE RATIO 3; CALCIUM 9.1 MG/DL (8.5-10.1); CARBON DIOXIDE 17 MMOL/L (21-32); CHLORIDE 113 MMOL/L (98-107); CREATININE SERUM 0.59 MG/DL (0.60-1.30); GFR ESTIMATED > 60; GLUCOSE 124 MG/DL (70-105); POTASSIUM 3.7 MMOL/L (3.6-5.0); SODIUM 141 MMOL/L (135-145)
[2018-12-03 19:45] VITALS: BP 129/63
[2018-12-04] MEDS: cefTRIAXone 2,000 MG/SWFI 20 ML IV PUSH IV SCH ×4 (08:03→19:56)
[2018-12-04 08:15] VITALS: BP 129/68
--- NOTE | 2018-12-04 20:08 | NUR ---
Pt ambulated to 4th floor nurses station for outpatient ABX. VSS Hr 71 RR 18 Spo2 96% on room air BP 145/79. Pt w/o complaints or s/s of distress at this time. JUSTINE Midline flushed at this time, IV Rocephin administered over 5 minutes and JUSTINE midline flushed with 20ml NS flush .
[2018-12-05 07:43] VITALS: BP 155/74
[2018-12-05] MEDS: cefTRIAXone 2,000 MG/SWFI 20 ML IV PUSH IV SCH ×4 (07:48→19:50)
[2018-12-05 20:00] VITALS: BP 124/59
[2018-12-06] MEDS: cefTRIAXone 2,000 MG/SWFI 20 ML IV PUSH IV SCH ×4 (07:53→20:00)
[2018-12-06 07:59] VITALS: BP 133/67
[2018-12-06 20:05] VITALS: BP 124/60
[2018-12-07] MEDS: cefTRIAXone 2,000 MG/SWFI 20 ML IV PUSH IV SCH ×4 (08:03→19:53)
[2018-12-07 08:10] VITALS: BP 128/59
[2018-12-07 20:05] VITALS: BP 107/52
[2018-12-08] MEDS: cefTRIAXone 2,000 MG/SWFI 20 ML IV PUSH IV SCH ×4 (07:45→20:09)
[2018-12-08 08:07] VITALS: BP 119/59
--- NOTE | 2018-12-08 19:50 | NUR ---
Pt ambulated to 4th floor nurses station for outpatient ABX. VSS Temp 98.6 Hr 75 RR 18 Spo2 97% on room air BP 121/71. Pt w/o complaints or s/s of distress at this time. JUSTINE Midline flushed at this time, IV Rocephin administered over 5 minutes and JUSTINE midline flushed with 20ml NS flush .
[2018-12-09] MEDS: cefTRIAXone 2,000 MG/SWFI 20 ML IV PUSH IV SCH ×4 (07:53→19:49)
[2018-12-09 08:00] VITALS: BP 125/7
[2018-12-09 20:00] VITALS: BP 97/48
[2018-12-10] MEDS: cefTRIAXone 2,000 MG/SWFI 20 ML IV PUSH IV SCH ×4 (07:49→20:01)
[2018-12-10 07:58] VITALS: BP 111/53
[2018-12-10 08:20] LABS: HEMOGLOBIN 12.6 G/DL (11.5-16.0); RED CELL DISTRIBUTION WIDTH 13.9 % (10.0-14.5); WHITE BLOOD COUNT 11.7 10^3/uL (4.3-11.0)
[2018-12-10 08:43] LABS: CREATININE SERUM 0.68 MG/DL (0.60-1.30)
[2018-12-10 20:01] VITALS: BP 128/69
[2018-12-11] MEDS: cefTRIAXone 2,000 MG/SWFI 20 ML IV PUSH IV SCH ×2 (08:05)
[2018-12-11 08:15] VITALS: BP 117/71
[2018-12-12] MEDS: cefTRIAXone 2,000 MG/SWFI 20 ML IV PUSH IV SCH ×4 (07:55→19:45)
[2018-12-12 07:58] VITALS: BP 118/48
[2018-12-12 20:00] VITALS: BP 120/58
[2018-12-13 08:10] VITALS: BP 119/54
[2018-12-13] MEDS: cefTRIAXone 2,000 MG/SWFI 20 ML IV PUSH IV SCH ×4 (08:18→19:48)
[2018-12-13 19:55] VITALS: BP 98/50
[2018-12-14] MEDS: cefTRIAXone 2,000 MG/SWFI 20 ML IV PUSH IV SCH ×4 (08:07→19:57)
[2018-12-14 08:08] VITALS: BP 120/65
[2018-12-14 08:51] LABS: ALANINE AMINOTRANSFERASE 14 U/L (0-55); ALKALINE PHOSPHATASE 46 U/L (40-136); BILIRUBIN,TOTAL 0.1 MG/DL (0.1-1.0); BUN/CREATININE RATIO 16; CALCIUM 9.5 MG/DL (8.5-10.1); CARBON DIOXIDE 16 MMOL/L (21-32); CHLORIDE 104 MMOL/L (98-107); GFR ESTIMATED > 60; GLUCOSE 114 MG/DL (70-105); POTASSIUM 3.5 MMOL/L (3.6-5.0); SODIUM 134 MMOL/L (135-145); TOTAL PROTEIN 7.4 GM/DL (6.4-8.2)
--- NOTE | 2018-12-14 19:55 | NUR ---
Pt ambulated to 4th floor nurses station for outpatient ABX. VSS Temp 98.4 Hr 71 RR 18 Spo2 96% on room air BP 102/64. Pt w/o complaints or s/s of distress at this time. JUSTINE Midline flushed at this time, IV Rocephin administered over 5 minutes and JUSTINE midline flushed with 20ml NS flush .
[2018-12-15 08:25] VITALS: BP 124/56
[2018-12-15] MEDS: cefTRIAXone 2,000 MG/SWFI 20 ML IV PUSH IV SCH ×4 (08:25→20:02)
--- NOTE | 2018-12-15 20:00 | NUR ---
Pt ambulated to 4th floor nurses station for outpatient ABX. VSS Temp 97.7 Hr 78 RR 18 Spo2 96% on room air BP 100/60. Pt w/o complaints or s/s of distress at this time. JUSTINE Midline flushed at this time, IV Rocephin administered over 5 minutes and JUSTINE midline flushed with 20ml NS flush .
[2018-12-16 07:55] VITALS: BP 122/54
[2018-12-16] MEDS: cefTRIAXone 2,000 MG/SWFI 20 ML IV PUSH IV SCH ×4 (08:15→19:58)
[2018-12-16 20:10] VITALS: BP 101/53
[2018-12-17 07:40] VITALS: BP 133/60
[2018-12-17] MEDS: cefTRIAXone 2,000 MG/SWFI 20 ML IV PUSH IV SCH ×2 (07:47)
[2018-12-17 07:54] LABS: BASOPHILS # (AUTO) 0.1 10^3/uL (0.0-0.1); BASOPHILS % (AUTO) 1 % (0-10); EOSINOPHILS # (AUTO) 0.3 10^3/uL (0.0-0.3); EOSINOPHILS % (AUTO) 2 % (0-10); HEMATOCRIT 38 % (35-52); HEMOGLOBIN 12.8 G/DL (11.5-16.0); LYMPHOCYTES # (AUTO) 5.2 X 10^3 (1.0-4.0); LYMPHOCYTES % (AUTO) 34 % (12-44); MEAN CORPUSCULAR HEMOGLOBIN 30 PG (25-34); MEAN CORPUSCULAR HGB CONC 33 G/DL (32-36); MEAN CORPUSCULAR VOLUME 90 FL (80-99); MEAN PLATELET VOLUME 9.1 FL (7.4-10.4); MONOCYTES # (AUTO) 1.1 X 10^3 (0.0-1.0); MONOCYTES % (AUTO) 7 % (0-12); NEUTROPHILS # (AUTO) 8.7 X 10^3 (1.8-7.8); NEUTROPHILS % (AUTO) 57 % (42-75); PLATELET COUNT 566 10^3/uL (130-400); RED CELL DISTRIBUTION WIDTH 13.7 % (10.0-14.5); WHITE BLOOD COUNT 15.3 10^3/uL (4.3-11.0)
[2018-12-17 08:14] LABS: ALANINE AMINOTRANSFERASE 19 U/L (0-55); ALBUMIN 4.1 GM/DL (3.2-4.5); ALKALINE PHOSPHATASE 41 U/L (40-136); BILIRUBIN,TOTAL 0.2 MG/DL (0.1-1.0); BUN/CREATININE RATIO 12; CALCIUM 10.1 MG/DL (8.5-10.1); CARBON DIOXIDE 18 MMOL/L (21-32); CHLORIDE 107 MMOL/L (98-107); CREATININE SERUM 0.67 MG/DL (0.60-1.30); GFR ESTIMATED > 60; GLUCOSE 97 MG/DL (70-105); POTASSIUM 3.8 MMOL/L (3.6-5.0); SODIUM 138 MMOL/L (135-145); TOTAL PROTEIN 7.5 GM/DL (6.4-8.2)
[2018-12-17 08:44] LABS: BAND NEUTROPHILS 0 %; BASOPHILS % (MANUAL) 1 %; EOSINOPHILS % (MANUAL) 0 %; LYMPHOCYTES % (MANUAL) 39 %; MONOCYTES % (MANUAL) 6 %; NEUTROPHILS % (MANUAL) 54 %; RBC MORPH NORMAL
[2018-12-18] MEDS: cefTRIAXone 2,000 MG/SWFI 20 ML IV PUSH IV SCH ×4 (08:15→19:50)
[2018-12-18 08:20] VITALS: BP 111/65
[2018-12-18 19:45] VITALS: BP 70/44
--- NOTE | 2018-12-18 19:50 | NUR ---
PT B/P IS 70/44 MANUAL. PT STATE SHE FEELS FINE BUT IS JUST TIRED. THIS RN INFORMED PT B/P IS LOW AND THIS RN RECOMMENDED SHE GO TO ED TO BE SEEN. PT REFUSED AT THIS TIME STATES SHE FEELS FINE AND WANTS TO GO HOME. THIS RN STATE UNDERSTANDING AND AGAIN INFORMED PT TO GO ER PT CONTINUES TO REFUSE.
[2018-12-19] MEDS: cefTRIAXone 2,000 MG/SWFI 20 ML IV PUSH IV SCH ×4 (08:12→19:59)
[2018-12-19 08:18] VITALS: BP 100/38
[2018-12-19 20:00] VITALS: BP 109/55
[2018-12-20] MEDS: cefTRIAXone 2,000 MG/SWFI 20 ML IV PUSH IV SCH ×2 (19:46)
[2018-12-20 19:47] VITALS: BP 109/61
[~2018-12-21] VITALS: Ht 160 cm; Wt 49.4 kg
[2018-12-21 07:40] VITALS: BP 134/59
[~2018-12-21 07:40] MED LIST changes: -GADOBUTROL 7.5 MMOL/7.5 ML (GADAVIST) VIAL IV ONE; +WATER (STERILE) FOR INJECTION 20 ML ONE; +cefTRIAXone 2 GM IV (ROCEPHIN) VIAL ONE; +cefTRIAXone 2,000 MG/SWFI 20 ML IV PUSH IV NR
== END 2018-12-21 07:50 | disposition home or self-care (01) ==
LOC: SDC 07:40
PROVIDERS: ATTEND Internal Medicine Infectious Disease
DX: R78.81 Bacteremia (principal); B95.5 Unspecified streptococcus as the cause of diseases classified elsewhere
CPT/HCPCS: 36415; 36591; 80048; 80053; 82565; 84520; 85007; 85027; 96374; 96376; 99211

== ENCOUNTER 2019-01-28 08:43 | Emergency (ER) | payer SELFPAY ==
[~2019-01-28] VITALS: Ht 157.5 cm; Wt 52.2 kg
[~2019-01-28 08:43] MED LIST changes: -WATER (STERILE) FOR INJECTION 20 ML ONE; -cefTRIAXone 2 GM IV (ROCEPHIN) VIAL ONE; -cefTRIAXone 2,000 MG/SWFI 20 ML IV PUSH IV NR
--- OUTSIDE RECORDS SUMMARY | 2019-01-28 08:49 | XMS REPORT | Encounter Summary ---
Author Author [facility] Organization [facility] Address Unknown Phone Unavailable Care Team Providers Care Fulfillment Associate Name Role Phone Tamia Fonseca MD PCP Encounter Details Care Team Description Date Type Department Benny Sepulveda MD [address] [facility] [address] [place] [id number] [phone] 12/18/2018 Outpt. [facility] Therapy [address] [place] [phone] Social History Date Tobacco Use Types Packs/Day Years Used Heavy Tobacco Smoker Cigarettes 2 45 Smokeless Tobacco: Former User Drinks/Week oz/Week Comments Alcohol Use No Alcohol Habits Answer Date Recorded How [...] Comments Procedure Name Priority Date/Time Associated Diagnosis PLATELET COUNT Routine 12/17/2018 7:48 AM CDT CBC Routine 12/17/2018 7:48 AM CDT HEMOGLOBIN Routine 12/17/2018 7:48 AM CDT BUN Routine 12/17/2018 7:48 AM CDT ALT (SGPT) Routine 12/17/2018 7:48 AM CDT AST (SGOT) Routine 12/17/2018 7:48 AM CDT POTASSIUM Routine 12/17/2018 7:48 AM CDT ALK PHOS TOTAL Routine 12/17/2018 7:48 AM CDT CREATININE Routine 12/17/2018 7:48 AM CDT documented in this encounter Results * BUN (12/17/2018 7:48 AM CDT) Blood Urea 8 OTHER OUTSIDE Nitrogen LAB Specimen Blood - Blood Performing Organization Address [facility] Phone Number OTHER OUTSIDE LAB * ALT (SGPT) (12/17/2018 7:48 AM CDT) ALT (SGPT) 19 OTHER OUTSIDE LAB Specimen Blood - Blood Performing Organization Address City/[facility] Phone Number OTHER OUT[facility]IDE LAB * AST (SGOT) (12/17/2018 7:48 AM CDT) AST (SGOT) 17 OTHER OUTSIDE LAB Specimen Blood - Blood Performing Organization Address [facility] Phone Number OTHER OUTSIDE LAB * POTASSIUM (12/17/2018 7:48 AM CDT) Potassium 3.8 OTHER OUTSIDE LAB Specimen Blood - Blood Performing Organization Address [facility] Phone Number OTHER OUTSIDE LAB * ALK PHOS TOTAL (12/17/2018 7:48 AM CDT) Alk Phosphatase 41 OTHER OUTSIDE LAB Specimen Blood - Blood Performing Organization Address City/[facility]/Zipcode Phone Number OTHER OUTSIDE LAB * CREATININE (12/17/2018 7:48 AM CDT) Creatinine 0.67 OTHER OUTSIDE LAB Specimen Blood - Blood Performing Organization Address [facility] Phone Number OTHER OUTSIDE LAB * PLATELET COUNT (12/17/2018 7:48 AM CDT) Platelet Count 566 OTHER OUTSIDE LAB Specimen Blood - Blood Performing Organization Address City/State/[facility] Phone Number OTHER OUTSIDE LAB * CBC (12/17/2018 7:48 AM CDT) White Blood 15.3 OTHER OUTSIDE Cells LAB Specimen Blood - Blood Performing Organization Address City/[facility] Phone Number OTHER OUTSIDE LAB * HEMOGLOBIN (12/17/2018 7:48 AM CDT) Hemoglobin 12.8 OTHER OUTSIDE LAB Specimen Blood - Blood Narrative Performed At Performing Organization Address City/[facility] Phone Number OTHER OUTSIDE LAB documented in this encounter Visit Diagnoses Not on filedocumented in this encounter
--- OUTSIDE RECORDS SUMMARY | 2019-01-28 08:49 | XMS REPORT | Encounter Summary ---
Author Author [facility] Organization [facility] Address Unknown Phone Unavailable Care Team Providers Care Physical Fitness Teacher Name Role Phone Tamia Fonseca MD PCP Encounter Details Care Team Description Date Type Department Benny Sepulveda MD [address] [facility] L[address] [place] [phone] 12/20/2018 Documentation [facility] [address] [place] [phone] Social History Date Tobacco Use Types Packs/Day [...] impairment: No documented as of this encounter Progress Notes * Benny Sepulveda MD - 12/20/2018 10:13 AM CDT MRI completed locally, report reviewed as the images are not available to me. N o sign of residual brain abscess. Will stop antibiotics and remove IV line. Damian ibanez has apparently canceled her last couple of infusions at the [facility] in both her and her phone numbers are not currently working. Stephy is working with the infusion center to reach the patient and stop antibiotic inf usions, and remove her line. We will offer her a follow-up appointment although she is not wanted to follow-up in the past I be happy to see her to discuss the se findings further and to make sure she is doing okay. Her last labs did have some leukocytosis although without seeing the patient or knowing any of her curr ent symptoms it is very difficult to know what this could mean. Benny Sepulveda MD Animal Handler Division of Infectious Diseases documented in this encounter Plan of Treatment Not on filedocumented as of this encounter Visit Diagnoses Not on filedocumented in this encounter
--- OUTSIDE RECORDS SUMMARY | 2019-01-28 08:49 | XMS REPORT | Encounter Summary ---
Author Author [facility] Organization [facility] Address Unknown Phone Unavailable Care Team Providers Care Tractor Trailer Mechanic Name Role Phone Tamia Fonseca MD PCP Encounter Details Care Team Description Date Type Department Benny Sepulveda MD 1998 [facility] [address] [place] [address] [phone] 12/14/2018 Outpt. [facility] Therapy [address] [place] [phone] Social History Date Tobacco Use Types Packs/Day [...] Comments Procedure Name Priority Date/Time Associated Diagnosis BUN Routine 12/14/2018 8:10 AM CDT ALT (SGPT) Routine 12/14/2018 8:10 AM CDT AST (SGOT) Routine 12/14/2018 8:10 AM CDT POTASSIUM Routine 12/14/2018 8:10 AM CDT ALK PHOS TOTAL Routine 12/14/2018 8:10 AM CDT CREATININE Routine 12/14/2018 8:10 AM CDT documented in this encounter Results * BUN (12/14/2018 8:10 AM CDT) Blood Urea 11 OTHER OUTSIDE Nitrogen LAB Specimen Blood - Blood Performing Organization Address City/State/Zipcode Phone Number OTHER OUTSIDE LAB * ALT (SGPT) (12/14/2018 8:10 AM CDT) ALT (SGPT) 14 OTHER OUTSIDE LAB Specimen Blood - Blood Performing Organization Address City/[facility] Phone Number OTHER OUT[facility]IDE LAB * AST (SGOT) (12/14/2018 8:10 AM CDT) AST (SGOT) 18 OTHER OUTSIDE LAB Specimen Blood - Blood Performing Organization Address City/State/Zipcode Phone Number OTHER OUTSIDE LAB * POTASSIUM (12/14/2018 8:10 AM CDT) Potassium 3.5 OTHER OUTSIDE LAB Specimen Blood - Blood Performing Organization Address City/State/Zipcode Phone Number OTHER OUTSIDE LAB * ALK PHOS TOTAL (12/14/2018 8:10 AM CDT) Alk Phosphatase 46 OTHER OUTSIDE LAB Specimen Blood - Blood Performing Organization Address City/[facility] Phone Number OTHER OUTSIDE LAB * CREATININE (12/14/2018 8:10 AM CDT) Creatinine 0.70 OTHER OUTSIDE LAB Specimen Blood - Blood Narrative Performed At Performing Organization Address City/State/Zipcode Phone Number OTHER OUTSIDE LAB documented in this encounter Visit Diagnoses Not on filedocumented in this encounter
--- OUTSIDE RECORDS SUMMARY | 2019-01-28 08:49 | XMS REPORT | Encounter Summary ---
Author Author [facility] Organization [facility] Address Unknown Phone Unavailable Care Team Providers Care Rag Inspector Name Role Phone Tamia Fonseca MD PCP Reason for Referral * Consult, Test & Treat Referred By Contact Referred To Contact Status Reason Specialty Diagnoses / Procedures Benny Sepulveda MD [address] [facility] [address] [place] [phone] New Request Specialty Services Diagnoses Required Encounter for long-term (current) use of antibiotics Scheduling Instructions ID [id number] RN will address. Reason for Visit * Reason Comments Outpatient Antibiotic Therapy ([facility]) Encounter Details Care Team Description Date Type Department Benny Sepulveda MD [address] [facility] [address] [address] Outpatient Antibiotic Therapy ([facility]) 12/20/2018 Telephone [facility] [address] [place] [phone] Social History Date Tobacco Use [...] Miscellaneous Notes * Telephone Encounter - Stephy Ndiaye RN - 12/20/2018 10:24 AM CDT Attempted to call pt again to see how she is feeling. Received MRI results from 12/18/18 w/ "no findings to suggest intracranial abscess". Both pt and spouse's phones have been disconnected. Spoke w/ Sonya at [facility] room, she reports pt is doing well, fee ling much better, no complaints. Pt did cancel infusion appts for 12/18/18 and 12/19/18 d/t "family emergency". Asked to have infusion room nurse call me when pt does arrive so I can talk to her. A lso asked that if pt calls, but does not come in to give pt my number and tell h er to call me. Reviewed MRI w/ Dr Sepulveda. Infectious Diseases Outpatient Orders: Today's Date: 12/20/[address] Sepulveda 1. D/C IV Ceftriaxone today 2. D/C PICC line 3. D/C weekly labs and picc care 4. If pt would like to f/u w/ ID have her call [phone] Above orders faxed to [facility] w/ nurse Hassan. documented in this encounter Plan of Treatment Order Schedule Name Type Priority Associated Diagnoses Ordered: 12/20/2018 AMB REFERRAL TO HOME CARE Outpatient Routine Encounter for long-term Referral (current) use of antibiotics documented as of this encounter Visit Diagnoses Diagnosis Encounter for long-term (current) use of antibiotics - Primary documented in this encounter
--- OUTSIDE RECORDS SUMMARY | 2019-01-28 08:49 | XMS REPORT | Clinical Summary ---
Author Author [facility] Organization [facility] Address Unknown Phone Unavailable Care Team Providers Care Statistical Programmer Name Role Phone Tamia Fonseca MD PCP Source Comments Some departments are not documenting in the electronic medical record. If you d o not see the information that you expected, contact Release of Information in [facility] Signal Information Management department at [phone] for further assistan ce in locating additional records.[facility] Allergies No Known Allergies Medications End Date [...] Per NG tube 9 route daily. Active chlorhexidine gluconate Swish and 0 (PERIDEX) [...] 0 mg elemental zinc) by Per NG 9 capsule tube route daily. Active Problems Problem Noted Date Hypertension, essential [...] Encounters Care Team Description Date Type Specialty Benny Sepulveda MD Outpatient Antibiotic Therapy (Opat) 12/21/2018 Telephone Infectious Benny Quiles MD 12/20/2018 Outpt. Infectious Diseases Antibiotic Therapy Benny Sepulveda MD Outpatient Antibiotic Therapy (Opat) 12/20/2018 Telephone Benny Hoyt MD 12/20/2018 Documentation Infectious Diseases Benny Sepulveda MD Outpatient Antibiotic Therapy (Opat) 12/18/2018 Telephone Benny Hoyt MD 12/18/2018 Outpt. Infectious Diseases Antibiotic Therapy Benny Sepulveda MD 12/14/2018 Outpt. Infectious Diseases Antibiotic Therapy Benny Sepulveda MD Transition Of Care 12/13/2018 Telephone Benny Hoyt MD 12/13/2018 Outpt. Infectious Diseases Antibiotic Therapy Benny Sepulveda MD Outpatient Antibiotic Therapy (Opat) 12/13/2018 Telephone Benny Hoyt MD Outpatient Antibiotic Therapy (Opat) 12/13/2018 Telephone Infectious Benny Quiles MD Outpatient Antibiotic Therapy (Opat) 12/11/2018 Telephone Infectious Diseases Tereza Lee RN Patient Questions 12/11/2018 Telephone Radiology Duy Burch MD Other (Speak to Nurse) 12/11/2018 Telephone Otolaryngology Duy Burch MD Other 11/27/2018 Telephone Otolaryngology Ty Sanchez MD Abscess of brain (Primary Dx) 11/20/2018 Orders Only Neurosurgery Gerri Castro MD Outpatient Antibiotic Therapy (Opat) 11/05/2018 Telephone Infectious Diseases Duy Burch MD MASTOIDECTOMY - SIMPLE, TYMPANOPLASTY 10/29/2018 Surgery Jose Whalen SRNA 10/29/2018 Anesthesia Event Kelton Zelaya MD Lackamp, Aaron, MD Palmieri, Katherine, MD Pneumonia due to infectious organism 10/19/2018 Hospital - Encounter 11/03/2018 from Last 3 Months Family History Medical History Relation Name Comments Heart Disease Brother [place] in 90s, with several stents Diabetes Sister [...] travel history available. Last Filed Vital Signs Reading Time Taken Comments Vital Sign 134/68 11/03/2018 2:00 PM CDT Blood Pressure 96 11/03/2018 2:00 PM CDT Pulse 37.1 C (98.8 F) 11/03/2018 8:00 AM CDT Temperature - - Respiratory Rate 100% 11/03/2018 1:00 PM CDT Oxygen Saturation - - Inhaled Oxygen Concentration 52.2 kg (115 lb 1.3 oz) 11/03/2018 5:30 AM CDT Weight 163 cm (5' 4.17") 10/23/2018 3:51 PM CDT Height 19.65 10/23/2018 3:51 PM CDT Body Mass Index Plan of Treatment Health Maintenance Due Date Last Done Comments HEPATITIS C SCREENING 1961 PHYSICAL (COMPREHENSIVE) 1968 EXAM HIV SCREENING 1976 DTAP/TDAP VACCINES (1 - 1979 Tdap) CERVICAL CANCER SCREENING 1991 BREAST CANCER SCREENING 2001 COLORECTAL CANCER 2011 SCREENING SHINGLES RECOMBINANT 2011 VACCINE (1 of 2) INFLUENZA VACCINE 05/14/2019 Implants Device Identifier Shelf Expiration Date Model / Serial / Lot Implanted Type Area Manufactur er 12/14/2026 [id number] / [id number] / [id number] Prosthesis Ossicular 1.27mm Yovani Right: Ear OLYMPUS Ear Reconstruction Yovani - AMER [id number] Implanted: Qty: 1 on 10/29/2018 by [facility]urch [facility] at [facility] 12/14/2026 [id number] / [id number] / [id number] Prosthesis Ossicular 1.27mm Yovani Left: Ear OLYMPUS Ear Reconstruction Yovani - AMER [id number] Implanted: Qty: 1 on 10/29/2018 by D[facility] Burch MD at [facility] Procedures Comments Procedure Name Priority Date/Time Associated Diagnosis MRI HEAD WO/W CONTRAST Routine 12/20/2018 BUN Routine 12/17/2018 7:48 AM CDT ALT (SGPT) Routine 12/17/2018 7:48 AM CDT AST (SGOT) Routine 12/17/2018 7:48 AM CDT POTASSIUM Routine 12/17/2018 7:48 AM CDT ALK PHOS TOTAL Routine 12/17/2018 7:48 AM CDT CREATININE Routine 12/17/2018 7:48 AM CDT PLATELET COUNT Routine 12/17/2018 7:48 AM CDT CBC Routine 12/17/2018 7:48 AM CDT HEMOGLOBIN Routine 12/17/2018 7:48 AM CDT BUN Routine 12/14/2018 8:10 AM CDT ALT (SGPT) Routine 12/14/2018 8:10 AM CDT AST (SGOT) Routine 12/14/2018 8:10 AM CDT POTASSIUM Routine 12/14/2018 8:10 AM CDT ALK PHOS TOTAL Routine 12/14/2018 8:10 AM CDT CREATININE Routine 12/14/2018 8:10 AM CDT BUN Routine 12/10/2018 8:10 AM CDT CREATININE Routine 12/10/2018 8:10 AM CDT PLATELET COUNT Routine 12/10/2018 8:10 AM CDT CBC Routine 12/10/2018 8:10 AM CDT HEMOGLOBIN Routine 12/10/2018 8:10 AM CDT PHOSPHORUS Routine 11/03/2018 5:42 AM [...] IONIZED CALCIUM Routine 10/30/2018 4:05 AM CDT POC IONIZED CALCIUM 10/29/2018 3:37 PM CDT POC SODIUM 10/29/2018 3:37 PM CDT POC POTASSIUM 10/29/2018 3:37 PM CDT POC HEMATOCRIT 10/29/2018 3:37 PM CDT POC BLOOD GAS RAYO 10/29/2018 3:37 PM CDT TRACHEOSTOMY PLANNED 10/29/2018 Altered mental status, 2:16 PM CDT unspecified altered mental status type MASTOIDECTOMY - SIMPLE 10/29/2018 Altered mental status, 2:16 PM CDT unspecified altered mental status type TRANSFUSE RBC'S Routine 10/29/2018 NON-BLEEDING PT 10:55 [...] AND DIFF Routine 10/28/2018 3:43 AM CDT from Last 3 Months Results * MRI HEAD WO/W CONTRAST (12/20/2018) Narrative Performed At Performing Organization Address City/State/Zipcode Phone Number OTHER OUTSIDE RADIOLOGY * PLATELET COUNT (12/17/2018 7:48 AM CDT) Only the most recent of 2 results within the time period is included. Platelet Count 566 OTHER OUTSIDE LAB Specimen Blood - Blood Performing Organization Address City/State/Zipcode Phone Number OTHER OUTSIDE LAB * CBC (12/17/2018 7:48 AM CDT) Only the most recent of 3 results within the time period is included. White Blood 15.3 OTHER OUTSIDE Cells LAB Specimen Blood - Blood Performing Organization Address City/State/Zipcode Phone Number OTHER OUTSIDE LAB * HEMOGLOBIN (12/17/2018 7:48 AM CDT) Only the most recent of 2 results within the time period is included. Hemoglobin 12.8 OTHER OUTSIDE LAB Specimen Blood - Blood Narrative Performed At Performing Organization Address City/State/Zipcode Phone Number OTHER OUTSIDE LAB * BUN (12/17/2018 7:48 AM CDT) Only the most recent of 3 results within the time period is included. Blood Urea 8 OTHER OUTSIDE Nitrogen LAB Specimen Blood - Blood Performing Organization Address City/State/Zipcode Phone Number OTHER OUTSIDE LAB * ALT (SGPT) (12/17/2018 7:48 AM CDT) Only the most recent of 2 results within the time period is included. ALT (SGPT) 19 OTHER OUTSIDE LAB Specimen Blood - Blood Performing Organization Address City/State/Zipcode Phone Number OTHER OUTSIDE LAB * AST (SGOT) (12/17/2018 7:48 AM CDT) Only the most recent of 2 results within the time period is included. AST (SGOT) 17 OTHER OUTSIDE LAB Specimen Blood - Blood Performing Organization Address City/[facility] Phone Number OTHER OUT[facility]IDE LAB * POTASSIUM (12/17/2018 7:48 AM CDT) Only the most recent of 4 results within the time period is included. Potassium 3.8 OTHER OUTSIDE LAB Specimen Blood - Blood Performing Organization Address City/[facility] Phone Number OTHER OUTSIDE LAB * ALK PHOS TOTAL (12/17/2018 7:48 AM CDT) Only the most recent of 2 results within the time period is included. Alk Phosphatase 41 OTHER OUTSIDE LAB Specimen Blood - Blood Performing Organization Address City/[facility] Phone Number OTHER OUTSIDE LAB * CREATININE (12/17/2018 7:48 AM CDT) Only the most recent of 3 results within the time period is included. Creatinine 0.67 OTHER OUTSIDE LAB Specimen Blood - Blood Performing Organization Address City/[facility] Phone Number OTHER OUTSIDE LAB * PHOSPHORUS (11/03/2018 5:42 AM CDT) Only the most recent of 7 results within the time period is included. Phosphorus 5.0 (H)Comment: NOTE NEW 2.0 - 4.5 MG/DL [facility] MAIN [facility] REFERENCE RANGES Specimen Blood Performing Organization Address City/[facility]/Zipcode Phone Number [facility] [address] [place] [address] * MAGNESIUM (11/03/2018 5:42 AM CDT) Only the most recent of 8 results within the time period is included. Magnesium 2.2 1.6 - 2.6 mg/dL [facility] MAIN [facility] Specimen Blood Performing Organization Address City/[facility]/Zipcode Phone Number MAIN LAB [address] [place] [address] * IONIZED CALCIUM (11/03/2018 5:42 AM CDT) Only the most recent of 7 results within the time period is included. Ionized Calcium 1.26 1.0 - 1.3 MMOL/L MAIN LAB Specimen Blood Performing Organization Address [facility] Phone Number [facility] [address] [place] [address] * BASIC METABOLIC PANEL (11/03/2018 5:42 AM CDT) Only the most recent of 8 results within the time period is included. [...] Non >60 >60 mL/min MAIN LAB Comment: [place] The eGFR is not validated for use in drug dosing adjustments.Continue to use estimated creatinine clearance per dosing reference text.Please contact the Clinical Pharmacist for questions. eGFR >60 >60 mL/min MAIN LAB [place]ian Comment: The eGFR is not validated for use in drug dosing adjustments.Continue to use estimated creatinine clearance per dosing reference text.Please contact the Clinical Pharmacist for questions. Specimen Blood Performing Organization Address [facility] Phone Number [facility] [address] [place] [address] * PROCALCITONIN (11/02/2018 9:55 AM CDT) Procalcitonin 0.07 <0.10 NG/ML [facility] Specimen Blood Performing Organization Address City/[facility]/Zipcode Phone Number [facility] [address] [place] [address] * CBC AND DIFF (11/02/2018 3:45 AM CDT) Only the most recent of 6 results within the time period is included. [...] Address City/State/Zipcode Phone Number MAIN LAB [address] [place] [address] * IR GASTROSTOMY (11/01/2018 5:03 PM CDT) Specimen Impressions Performed At Successful placement of a [...] placed over the Amplatz wire, a 22 Senegalese peel-away sheath was advanced over the wire into the gastric lumen. The EZIO 1 catheter was then advanced over the Amplatz wire which was then exchanged for a stiff Glidewire. An 18 Senegalese 45 cm gastrojejunostomy tube was advanced over [...] placed over the Amplatz wire, a 22 Senegalese peel-away sheath was advanced over the wire into the gastric lumen. The EZIO 1 catheter was then advanced over the Amplatz wire which was then exchanged for a stiff Glidewire. An 18 Senegalese 45 cm gastrojejunostomy tube was advanced over [...] on 11/02/2018 8:00 AM. Performing Organization Address City/State/[facility] Phone Number [facility] RAD RESULTS * CHEST SINGLE VIEW (10/31/2018 11:48 AM CDT) Specimen Impressions Performed At Progressing mixed opacities most [...] on 10/31/2018 12:12 PM. Performing Organization Address City/[facility] Phone Number RAD RESULTS * POC BLOOD GAS ARTERIAL (10/30/2018 7:25 PM CDT) PH-ART-POC 7.34 (L) 7.35 - 7.45 MAIN LAB [id number] 50 (H) 35 - 45 MMHG [facility] MAIN [facility] PO2-ART-POC 103 (H) 80 - 100 MMHG [facility] MA[facility] Base Ex-ART-POC 1.0 MMOL/L MAIN LAB O2 Sat-ART-POC 97.0 95 - 99 % [facility] MA[facility] Bicarbonate-ART 27.2 21 - 28 MMOL/L MAIN LAB -POC Specimen Performing Organization Address [facility] Phone Number MAIN LAB [address] [place] [address] * POC SODIUM (10/30/2018 7:25 PM CDT) Only the most recent of 2 results within the time period is included. Sodium-POC 150 (H) 137 - 147 MMOL/L MAIN LAB Specimen Performing Organization Address [facility] Phone Number MAIN LAB [address] [place] [address] * POC POTASSIUM (10/30/2018 7:25 PM CDT) Only the most recent of 2 results within the time period is included. Potassium-POC 4.2 3.5 - 5.1 MMOL/L MAIN LAB Specimen Performing Organization Address City/[facility] Phone Number MAIN LAB [address] [place] [address] * POC IONIZED CALCIUM (10/30/2018 7:25 PM CDT) Only the most recent of 2 results within the time period is included. Ionized 1.43 (H) 1.0 - 1.3 MMOL/L MAIN LAB Calcium-POC Specimen Performing Organization Address [facility] Phone Number MAIN LAB [address] [place] [address] * POC HEMATOCRIT (10/30/2018 7:25 PM CDT) Only the most recent of 2 results within the time period is included. Hemoglobin POC 11.2 (L) 12.0 - 15.0 GM/DL MAIN LAB Hematocrit POC 33.0 (L) 36 - 45 % MAIN LAB Specimen Performing Organization Address [facility] Phone Number MAIN LAB [address] [place] [address] * SURGICAL PATHOLOGY (10/30/2018 9:38 AM CDT) PATHOLOGY [facility] [email or web address] Department of Pathology and Laboratory Medicine [address] [place] [address] Surgical Pathology Office:[phone] :[phone] SURGICAL PATHOLOGY REPORT NAME: ETELVINA MORA SURG PATH #: [id number] MR #: [id number] SPECIMEN CLASS: [facility] BILLING #: [id number] ALT ID #:LOCATION: [facility] DATE OF PROCEDURE: 10/30/2018 AGE:58 SEX: [...] report. +++ +++ Kartik Mabry MD Resident [facility]/10/30/2018 ############################## ############################## ############ Material Received: A: mastoid contents History: 58-year-old female history of altered mental status, unspecified altered mental status type Gross Description: A. 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.(lmt) lt10/30/2018 Specimen Performing Organization Address [facility] Phone Number [facility] [address] [place] [address] * POC BLOOD GAS RAYO (10/29/2018 3:37 PM CDT) PH-RAYO-POC 7.33 7.30 - 7.40 MAIN LAB [id number]-[id number]-WKX 48 36 - 50 MMHG MAIN LAB PO2-RAYO-POC 51 (H) 33 - 48 MMHG [facility] Base Ex-RAYO-POC 0.0 MMOL/L [facility] O2 Sat-RAYO-POC 83.0 (H) 55 - 71 % MAIN LAB Bicarbonate-RAYO 25.5 MMOL/L MAIN LAB -POC Specimen Performing Organization Address [facility] Phone Number MAIN LAB [address] [place] [address] * US ABDOMEN COMPLETE (10/29/2018 8:13 AM CDT) Specimen Impressions Performed At 1.Upper limits of normal [...] on 10/29/2018 8:28 AM. Performing Organization Address City/[facility]/Zipcode Phone Number RAD RESULTS * BLOOD TYPE CONFIRMATION - ORDER ONLY IF REQUESTED BY LAB (10/29/2018 4:18 AM CDT) ABO/RH(D) O POS MAIN LAB Specimen Performing Organization Address City/[facility]/Zipcode Phone Number MAIN LAB [address] [place] [address] * TYPE & CROSSMATCH (10/28/2018 5:01 PM CDT) Units Ordered 1 MAIN LAB Crossmatch 10/31/2018 MAIN LAB Expires Record Check 2ND TYPE REQUIRED MAIN LAB ABO/RH(D) O POS MAIN LAB Antibody Screen NEG MAIN LAB Electronic YES MAIN LAB Crossmatch Unit Number [id number] MAIN LAB Blood Component RBC,ADSOL,LEUKO REDUCED [facility] MA[facility] Type Unit Division 0 MAIN LAB Status OF Unit TRANSFUSED [facility] MAIN LAB Transfusion OK TO TRANSFUSE MAIN LAB Status Crossmatch COMPATIBLE,ELECTRONIC MAIN LAB Result Specimen Blood Performing Organization Address City/[facility] Phone Number MAIN LAB [address] [place] [address] * IRON + BINDING CAPACITY + %SAT+ FERRITIN (10/28/2018 2:14 PM CDT) Iron 21 (L) 50 - 160 MCG/DL [facility] MAIN [facility] Iron 344 270 - 380 MCG/DL MAIN LAB Binding-TIBC % Saturation 6 (L) 28 - 42 % MAIN LAB Ferritin 168 10 - 200 NG/ML MAIN LAB Specimen Blood Performing Organization Address City/[facility] Phone Number MAIN LAB [address] [place] [address] * RETICULOCYTE COUNT (10/28/2018 2:14 PM CDT) Retic, 2.1 (H) 0.5 - 2.0 % [facility] MAIN [facility] Uncorrected Retic, 1.3 % [facility] MA[facility] Corrected Retic, Absolute 59.2 30 - 94 K/UL MAIN LAB Specimen Blood Performing Organization Address [facility] Phone Number MAIN LAB [address] [place] [address] from Last 3 Months Insurance Type Payer Benefit Subscriber ID Effective Phone Address Plan / Dates Group PPO BCBS TESSA BCBS TESSA xxxxxxxxxxxx 2018-P PREF CARE resent BLUE Advance Directives 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 needed
--- OUTSIDE RECORDS SUMMARY | 2019-01-28 08:49 | XMS REPORT | Encounter Summary ---
Author Author [facility] Organization [facility] Address Unknown Phone Unavailable Care Team Providers Care Tower Hand Name Role Phone Tamia Fonseca MD PCP Reason for Visit * Reason Comments Outpatient Antibiotic Therapy (Opat) Encounter Details Care Team Description Date Type Department Benny Sepulveda MD [address] [facility] Ortho/Med Pavilion Lvl [address] [place] [address] Outpatient Antibiotic Therapy (Opat) 12/18/[address] [address] Social History Date Tobacco Use Types [...] Telephone Encounter - Stephy Ndiaye RN - 12/18/2018 3:04 PM CDT Results for ROCÍO MORA ( ) as of 12/18/2018 13:48 12/10/2018 08:10 12/17/2018 07:48 Platelet Count 545 566 White Blood Cells 11.7 15.3 White count and platelet count are both elevated. Per Dr Sepulveda, call pt to see how she is doing. Will also f/u on MRI that was to b e scheduled for this week. Called pt, no answer, phone states the the number is no longer in service. Called [facility], they have pt scheduled for MRI tomorrow 12/19/18 at 2pm. documented in this encounter Plan of Treatment Not on filedocumented as of this encounter Visit Diagnoses Not on filedocumented in this encounter
--- OUTSIDE RECORDS SUMMARY | 2019-01-28 08:49 | XMS REPORT | Encounter Summary ---
Author Author [facility] Organization [facility] Address Unknown Phone Unavailable Care Team Providers Care Line Builder Name Role Phone Tamia Fonseca MD PCP Reason for Visit * Reason Comments Outpatient Antibiotic Therapy (Opat) Encounter Details Care Team Description Date Type Department Benny Sepulveda MD 1999 [facility] Ortho/Med Pavilion Lvl [address] [place] [address] Outpatient Antibiotic Therapy (Opat) 12/21/[address] [address] Social History Date Tobacco Use [...] Telephone Encounter - Stephy Ndiaye RN - 12/21/2018 4:01 PM CDT Confirmed with Rika verma [facility] PICC was removed on 12/21/18 and all weekly lab orders and antibiotics were discontinued. Pt to follow up in ID p rn. documented in this encounter Plan of Treatment Not on filedocumented as of this encounter Visit Diagnoses Not on filedocumented in this encounter
--- OUTSIDE RECORDS SUMMARY | 2019-01-28 08:49 | XMS REPORT | Encounter Summary ---
Author Author [facility] Organization [facility] Address Unknown Phone Unavailable Care Team Providers Care Lace Machine Operator Name Role Phone Tamia Fonseca MD PCP Encounter Details Care Team Description Date Type Department Benny Sepulveda MD 1999 [facility] Ortho/Med Pavilion Lvl [address] [place] [id number] [phone] 12/20/2018 Outpt. The [facility] Therapy [address] [place] [phone] Social History Date Tobacco Use Types Packs/Day [...] Diagnosis MRI HEAD WO/W CONTRAST Routine 12/20/2018 documented in this encounter Results * MRI HEAD WO/W CONTRAST (12/20/2018) Narrative Performed At Performing Organization Address City/State/Zipcode Phone Number OTHER OUTSIDE RADIOLOGY documented in this encounter Visit Diagnoses Not on filedocumented in this encounter
--- OUTSIDE RECORDS SUMMARY | 2019-01-28 08:49 | XMS REPORT | Encounter Summary ---
Author Author [facility] Organization [facility] Address Unknown Phone Unavailable Care Team Providers Care Software Sales Consultant Name Role Phone Tamia Fonseca MD PCP Reason for Visit * Reason Comments Transition Of Care Encounter Details Care Team Description Date Type Department Benny Sepulveda MD 1999 [facility] Ortho/Med Pavilion Lvl [address] [place] [id number] Transition Of Care 12/13/2018 Telephone The [facility] [address] [place] [address] Social History Date Tobacco Use [...] encounter Miscellaneous Notes * Telephone Encounter - Benny Sepulveda MD - 12/13/2018 3:08 PM CDT The pt contacted our office yesterday to inquire re: need for a f/u MRI. See Elisabeth Ndiaye's notes. She had been hospitalized in October at [facility], She was dis charged to a local LTACH and ID there took over her care. Apparently she was di scharged weeks ago on IV ceftriaxone but there doesn't seem to have been a f/u p nazario in place. It doesn't seem clear that her outside ID physician was following any longer at this point. Thus we'll take over care in order to assure that her infection is properly managed. She's now been on IV abx for many weeks. We n eed to see a f/u brain MRI to assess her abscess. It may have resolved by now. If so, we'll need to stop abx and have her line removed. Stephy has been coor dinating this locally for the pt. [facility] has [facility] and states she c annot afford to come to for a f/u appt or MRI. Thus, we'll f/u the MRI when they are able to get that done, continuing the abx and following her labs until that time. Benny Sepulveda MD Coagulating Drying Supervisor Division of Infectious Diseases documented in this encounter Plan of Treatment Not on filedocumented as of this encounter Visit Diagnoses Not on filedocumented in this encounter
--- OUTSIDE RECORDS SUMMARY | 2019-01-28 08:50 | XMS REPORT | Encounter Summary ---
Author Author [facility] Organization [facility] Address Unknown Phone Unavailable Care Team Providers Care Bath Steward Name Role Phone Tamia Fonseca MD PCP Reason for Visit * Reason Comments Outpatient Antibiotic Therapy (Opat) Encounter Details Care Team Description Date Type Department Gerri Castro MD 1999 [facility] Ortho/Med Pavilion Lvl [address] [place] [address] Outpatient Antibiotic Therapy (Opat) 11/05/2018 Telephone [address] [address] Social History Date Tobacco Use [...] Telephone Encounter - Stephy Ndiaye RN - 11/05/2018 11:24 AM CDT Infectious Diseases reconciliation note from [facility] discharge on 11/03/[address] Castro, 1. 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 This would continue unti l at least 11/12. 2. Confirmed w/ Estefania at [facility] that pt will be followed by Dr Hunetr miranda 3. Faxed ID Consult, progress note, and microsummary 4. Asked to have them contact ID if they need to have the pt followed after d ischarge from facility documented in this encounter Plan of Treatment Not on filedocumented as of this encounter Visit Diagnoses Not on filedocumented in this encounter
--- OUTSIDE RECORDS SUMMARY | 2019-01-28 08:50 | XMS REPORT | Encounter Summary ---
Author Author [facility] Organization [facility] Address Unknown Phone Unavailable Care Team Providers Care Spanish Interpreter Name Role Phone Tamia Fonseca MD PCP Reason for Visit * Reason Comments Other Speak to Nurse Encounter Details Care Team Description Date Type Department Sarath Paris MD [address] Ortho/Med Pavilion Lvl 3C [place], [place] [id number] Other (Speak to Nurse) 12/11/2018 Telephone The [facility] [address] [place] [address] Social History Date Tobacco Use [...] encounter Miscellaneous Notes * Telephone Encounter - Rika Ruby RN - 12/11/2018 10:04 AM CDT Patient had mastoidectomy with Dr. Paris when she was in-patient at in Oct. She has felt foggy in the head since discharge from . Advised kurt acosta that she would need to make an appointment for a clinic visit with audio; we have never seen her here for follow up. Patient states she [place] too far away and cannot come to for appointments. A dvised patient to contact her PCP in her hometown for further recommendations. Patient voiced understanding. * Telephone Encounter - Jeb Miranda - 12/11/2018 9:42 AM CDT Patient asking to speak to nurse. She is experiencing a foggy head with ear pre ssure ever since she left the hospital. documented in this encounter Plan of Treatment Not on filedocumented as of this encounter Visit Diagnoses Not on filedocumented in this encounter
--- OUTSIDE RECORDS SUMMARY | 2019-01-28 08:50 | XMS REPORT | Encounter Summary ---
Author Author [facility] Organization [facility] Address Unknown Phone Unavailable Care Team Providers Care Commercial Lines Account Executive Name Role Phone Tamia Fonseca MD PCP Encounter Details Care Team Description Date Type Department Benny Sepulveda MD [address] [facility] Ortho/Med Pavilion [address] [place] [id number] [phone] 12/13/2018 Outpt. The [facility] Therapy [address] [place] [phone] Social History Date Tobacco Use Types Packs/Day [...] Priority Date/Time Associated Diagnosis PLATELET COUNT Routine 12/10/2018 8:10 AM CDT CBC Routine 12/10/2018 8:10 AM CDT HEMOGLOBIN Routine 12/10/2018 8:10 AM CDT BUN Routine 12/10/2018 8:10 AM CDT CREATININE Routine 12/10/2018 8:10 AM CDT documented in this encounter Results * BUN (12/10/2018 8:10 AM CDT) Blood Urea 5 OTHER OUTSIDE Nitrogen LAB Specimen Blood - Blood Performing Organization Address City/[facility] Phone Number OTHER OUTSIDE LAB * CREATININE (12/10/2018 8:10 AM CDT) Creatinine 0.68 OTHER OUTSIDE LAB Specimen Blood - Blood Performing Organization Address [facility] Phone Number OTHER OUTSIDE LAB * PLATELET COUNT (12/10/2018 8:10 AM CDT) Platelet Count 545 OTHER OUTSIDE LAB Specimen Blood - Blood Performing Organization Address [facility] Phone Number OTHER OUTSIDE LAB * CBC (12/10/2018 8:10 AM CDT) White Blood 11.7 OTHER OUTSIDE Cells LAB Specimen Blood - Blood Performing Organization Address [facility] Phone Number OTHER OUTSIDE LAB * HEMOGLOBIN (12/10/2018 8:10 AM CDT) Hemoglobin 12.6 OTHER OUTSIDE LAB Specimen Blood - Blood Narrative Performed At Performing Organization Address City/[facility] Phone Number OTHER OUTSIDE LAB documented in this encounter Visit Diagnoses Not on filedocumented in this encounter
--- OUTSIDE RECORDS SUMMARY | 2019-01-28 08:50 | XMS REPORT | Encounter Summary ---
Author Author [facility] Organization [facility] Address Unknown Phone Unavailable Care Team Providers Care Collateral Specialist Name Role Phone Tamia Fonseca MD PCP Reason for Visit * Reason Comments Other Encounter Details Care Team Description Date Type Department Sarath Paris MD [address] Ortho/Med Pavilion Lvl [address] [place] [address] Other 11/27/2018 Telephone [facility] [address] [place] [address] Social History Date Tobacco Use [...] that she will need to follow up w ith her primary service (neurology) related to an [...] Paris and f/u with patient once more informatio n is obtained. * Telephone Encounter - Autumn Ness - 11/27/2018 1:38 PM CDT Pt needs Dr. Paris's permission to get a feeding tube removed in [facility], Dr. Paris placed the tube 10/29. documented in this encounter Plan of Treatment Not on filedocumented as of this encounter Visit Diagnoses Not on filedocumented in this encounter
--- OUTSIDE RECORDS SUMMARY | 2019-01-28 08:50 | XMS REPORT | Encounter Summary ---
Author Author [facility] Organization [facility] Address Unknown Phone Unavailable Care Team Providers Care Filling And Packing Supervisor Name Role Phone Tamia Fonseca MD PCP Reason for Referral * Consult, Test & Treat Referred By Contact Referred To Contact Status Reason Specialty Diagnoses / Procedures Benny Sepulveda MD [email or web address] Orth[facility] [place] [phone] New Request Specialty Services Diagnoses Required Encounter for long-term (current) use of antibiotics Scheduling Instructions ID OPAT RN will address. Reason for Visit * Reason Comments Outpatient Antibiotic Therapy (Opat) Encounter Details Care Team Description Date Type Department Benny Sepulveda MD [email or web address] [facility] [address] Outpatient Antibiotic Therapy (Opat) 12/13/2018 Telephone [facility] [address] [place] [address] Social History Date Tobacco Use [...] Telephone Encounter - Stephy Ndiaye RN - 12/13/2018 2:07 PM CDT Infectious Diseases Outpatient Orders: Today's Date: 12/13/[address] Sepulveda, 1. Please collect CMP this week 2. Every Monday ongoing collect CBC w/diff and CMP starting 12/17/18 3. Please fax all lab results to Dr Sepulveda at [phone]. Above orders faxed to [facility]. documented in this encounter Plan of Treatment Order Schedule Name Type Priority Associated Diagnoses Ordered: 12/13/2018 AMB REFERRAL TO HOME CARE Outpatient Routine Encounter for long-term Referral (current) use of antibiotics documented as of this encounter Visit Diagnoses Diagnosis Encounter for long-term (current) use of antibiotics - Primary documented in this encounter
--- OUTSIDE RECORDS SUMMARY | 2019-01-28 08:50 | XMS REPORT | Encounter Summary ---
Author Author [facility] Organization [facility] Address Unknown Phone Unavailable Care Team Providers Care Towerman Name Role Phone Tamia Fonseca MD PCP Reason for Visit * Reason Comments Outpatient Antibiotic Therapy (Opat) Encounter Details Care Team Description Date Type Department Benny Sepulveda MD [address] [facility] Ortho/Med Pavilion Lvl [address] [place] [address] Outpatient Antibiotic Therapy (Opat) 12/13/[address] Tele[address] [address] Social History Date Tobacco Use [...] Encounter - Stephy Ndiaye RN - 12/13/2018 11:55 AM CDT Received records from [facility], but no call back. Order for MRI to be done locally faxed to [facility] Contacted Shelby from [facility] infusion room to request most recent la b results and to inform that we are waiting for MRI to determine if pt can stop IV abx. Shelby reports they have not heard from Dr Walker's office since pt was sofy arana on infusions on 11/22/18. Confirmed w/ Soledad at [facility] that they received orders for MRI an d the next available they have is December 21. They will contact pt and schedule. documented in this encounter Plan of Treatment Not on filedocumented as of this encounter Visit Diagnoses Not on filedocumented in this encounter
--- OUTSIDE RECORDS SUMMARY | 2019-01-28 08:50 | XMS REPORT | Encounter Summary ---
Author Author [facility] Organization [facility] Address Unknown Phone Unavailable Care Team Providers Care Mails Supervisor Name Role Phone Tamia Fonseca MD PCP Reason for Visit * Reason Comments Patient Questions Encounter Details Care Team Description Date Type Department Tereza Lee, RN Patient Questions 12/11/2018 Telephone [facility] Radiology [address] [address] Social History Date Tobacco Use Types Packs/Day [...] encounter Miscellaneous Notes * Telephone Encounter - Tereza Lee RN - 12/11/2018 10:55 AM CDT Return phone call made to patient to answer questions about her feeding tube. Le message for patient to return phone call. documented in this encounter Plan of Treatment Not on filedocumented as of this encounter Visit Diagnoses Not on filedocumented in this encounter
--- OUTSIDE RECORDS SUMMARY | 2019-01-28 08:50 | XMS REPORT | Encounter Summary ---
Author Author [facility] Organization [facility] Address Unknown Phone Unavailable Care Team Providers Care Kinesiotherapist Name Role Phone Tamia Fonseca MD PCP Reason for Referral * Consult, Test & Treat Referred By Contact Referred To Contact Status Reason Specialty Diagnoses / Procedures Benny Sepulveda MD [address] [facility] Ortho/Med Pavilion Lvl [address] [place] [address] New Request Specialty Services Diagnoses Required Brain abscess Scheduling Instructions ID OPAT RN will address. Reason for Visit * Reason Comments Outpatient Antibiotic Therapy (Opat) Encounter Details Care Team Description Date Type Department Benny Sepulveda MD [address] [employer] Ortho/Med Pavilion Lvl [address] [place] [address] Outpatient Antibiotic Therapy (Opat) 12/11/2018 Telephone The [facility] [address] [place] [address] Social History Date Tobacco Use [...] as of this encounter Miscellaneous Notes * Addendum Note - Khalif Medley RN - 12/12/2018 4:04 PM CDT Addended by: KHALIF MEDLEY on: 12/12/2018 04:04 PM Modules accepted: Orders * Telephone Encounter - Khalif Medley RN - 12/11/2018 4:39 PM CDT Received call from pt that she discharged on from [facility] on IV Ceftriaxone twice a day and she is wondering if she needs a f/u brain MRI. Dr Sepulveda's last note recommends IV Ceftriaxone through 11/12/18. Called [facility] to discuss w/ psychotherapist social worker what happened at D/C since n o records or phone calls to ensure transition from [facility] to [facility]. School Counsellor Lanie states that pt did discharge, no records or phone calls were made to arrange f/u. Requested she fax pt's records to us now. Discussed w/ Dr Walker, he reports that pt did not want to follow w/ his group or with [facility]. Asked who pt selected to follow her IV abx, doesn't know but it was someone local. Called [facility] infusion room, they checked the pt's orders and the ruth Walker as the attending following IV abx and lab work, no other physician has co-signed or involved in pt's care. Called Lanie/SHORTY beck at [facility] to let them know Dr Walker know that he is still listed as managing physician. Dr Sepulveda notified of the above. Awaiting records from [facility]. Will call pt in am w/ plan. All calls to Social work office and cell number go to . Called pt, she cannot travel back to for f/u, but would like to pursue MRI f/ u locally. She has [facility] and a payment plan set up w/ [facility] so she would like to have orders sent there. Dr Sepulveda notified, send orders for brain mri to [facility]. documented in this encounter Plan of Treatment Order Schedule Name Type Priority Associated Diagnoses Ordered: 12/12/2018 AMB REFERRAL TO HOME CARE Outpatient Routine Brain abscess Referral documented as of this encounter Visit Diagnoses Diagnosis Brain abscess - Primary Intracranial abscess documented in this encounter
--- OUTSIDE RECORDS SUMMARY | 2019-01-28 08:50 | XMS REPORT | Encounter Summary ---
Author Author [facility] Organization [facility] Address Unknown Phone Unavailable Care Team Providers Care Fish Farm Laborer Name Role Phone Tamia Fonseca MD PCP Reason for Referral * Radiology Services (Routine) Referred By Contact Referred To Contact Status Reason Specialty Diagnoses / Procedures Ty Sanchez MD [address] Ortho/Med Pavilion Lvl [address] [place] [address] New Request Radiology Diagnoses Abscess of brain P rocedures MRI HEAD WO/W CONTRAST Encounter Details Care Team Description Date Type Department Ty Sanchez MD [address] Ortho/Med Pavilion Lvl [address] [place], [place] [phone] Abscess of brain (Primary Dx) 11/20/2018 Orders Only [facility] [address] [place] [address] Social History Date Tobacco Use [...] Order Schedule Name Type Priority Associated Diagnoses Expected: 11/20/2018 (Approximate), Expires: 11/21/2019 MRI HEAD WO/W CONTRAST Imaging Routine Abscess of brain documented as of this encounter Visit Diagnoses Diagnosis Abscess of brain - Primary Intracranial abscess documented in this encounter
--- OUTSIDE RECORDS SUMMARY | 2019-01-28 08:56 | XMS REPORT | Encounter Summary ---
Author Author [facility] Address Unknown Phone Unavailable Care Team Providers Care Try Out Person Name Role Phone Akbar Fonseca MD PCP Reason for Visit * Auth/Cert Referred By Contact Referred To Contact Status Reason Specialty Diagnoses / Procedures Diagnoses Pneumocephalus altered mental status Encounter Details Care Team Description Date Type Department Kelton Zelaya MD [address] [address] [phone] Farhad Perez MD [address] [address] [phone] Judy Santoro MD [address] [address] [phone] Pneumonia due to infectious organism 10/19/2018 [facility] 11/03/2018 [address] [place], [place] [id number] Social History Date Tobacco Use Types Packs/Day [...] of this encounter Last Filed Vital Signs Reading Time Taken Comments Vital Sign 134/68 11/03/2018 2:00 PM CDT Blood Pressure 96 11/03/2018 2:00 PM CDT Pulse 37.1 C (98.8 F) 11/03/2018 8:00 AM CDT Temperature - - Respiratory Rate 100% 11/03/2018 1:00 PM CDT Oxygen Saturation - - Inhaled Oxygen Concentration 52.2 kg (115 lb 1.3 oz) 11/03/2018 5:30 AM CDT Weight 162.6 cm (5' 4") 10/20/2018 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 Judy Santoro Service: Neurology Cr itical Care Physician Summary completed by: Mica Javed [...] atrial fibrillation (HCC) Pneumothorax tripped over a [employer] toy, had a pneumothorax, had lung surgery in hospital at [facility] Restless leg syndrome Allergies: Patient has no known allergies. Admission Physical Exam notable for: GCS 7T. Obtunded. Moves all extremities sp ontaneously and away from stimulus. CN intact from inspection. Lungs with fine b ilat crackles in bases. Non healing leg wounds Admission Lab/Radiology studies notable for: CT head with right temporal lobe pneumocephalus and surrounding edema concern ing for possible infection/abcess TTE showed LVEF 35-40%, anterior MV leaflet prolapse, eccentric posterior lat eral mitral valve regurgitation. No obvious signs of vegetation MRI Brain: Concerns for possible cerebritis of right temporal lobe and develo ping abscess, thin subdural empyema, mastoiditis Brief Hospital Course: Ms Alonso is a 58 year old female with a complicated PMHx including CAD s/p CABG i n [place] in July 2018 with a post-op course complicated by non-healing EVH leg wounds, HTN, HLD, depression, anxiety, and COPD who presented to an OSH on with worsening shortness of breath and chest pain. 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 She was started on antibiotics at that time, but bray d an acute worsening of her mental status on 10/17 along with hypoxia requiring in tubation. She had been fairly stable but given her inability to clear her mental status a CT head was obtained which showed right temporal lobe pneumocephalus c oncerning for possible infection, so she was transferred to [facility] for further care . MRI without abscess NSG no acute surgical intervention. There was concern for multiple skull base defects and/or skull base thinning over bilateral tegmen and right sphenoid wing. ENT consulted for surgical intervention. ID consulted. Con tinued on Meropenem and Vanc. Positive for Influenza A- started on Tamiflu. Fluc onazole for thrush. On 10/23 wound cultures showed pseudomonas resistant to merop enem so she was then switched to Cefepime. Vanc DC'd 10/24. 10/26 repeat MRI show ed evidence of a right inferior temporal cerebritis that has coalesced into an a bscess. Per NSG, given the small size, we will likely recommend continued medica l management. Unable to wean vent, diuresed over several days but then became hy potensive. Metoprolol and lasix stopped 2/2 hypotension 10/28, fluid bolus given. 10/29 ENT performed bilateral myringotomy with tympanomastoidectomy and trach. 10/31 was becoming delirious overnight, PRN ativan DC'd risperidone and melatonin added. PS 5/5 during day, MMV settings HS. 11/01 PEG placed, gentle diureses 20mg Lasix. 3/22 PS on vent all day, tolerated well. Trach exchanged per ENT 6.0 cu ffed Jennifer. Metoprolol resumed. Ongoing thrombocytosis and mild leukocytosis, P rocal sent- 0.07, afebrile. 11/03 Doing well, stable for transfer, attempting tra ch shield trial. Of note, she has 2 broken sternal wires by x-ray as well as CT scan. There jarrett s not appear to be any associated abscess [...] ENT, ID, Neurosurgery, Wound Team Patient Disposition: Data Analysis Assistant Care Facility Patient instructions/medications: Orders/Medications for Discharges to Home and External Facilities: Activity as Tolerated It is important to keep increasing your activity level after you leave the hosp ital. Moving around can help prevent blood clots, lung infection (pneumonia) an d other problems. Gradually increasing the number of times you are up moving ar ound will help you return to your normal activity level more quickly. Continue to increase the number of times you are up to the chair and walking daily to ret urn to your normal activity level. Begin to work towards your normal activity le bozena at discharge per PT/OT recommendations. Report These Signs and Symptoms Fever, excessive drainage from incision site, pain not controlled with your jenifer n medications, weakness, difficulty walking, or other concerns. Return Appointment For Neurology scheduling contact [phone] For Neurosurgery appointments call [phone] Questions About Your Stay For questions or concerns regarding your hospital stay: -DURING BUSINESS HOURS (8:00 AM - 4:30 PM): Call [phone] and ask to be transferred to your discharge attending padmini grace. -AFTER BUSINESS HOURS (4:30 PM - 8:00 AM, on weekends, or holidays): Call [phone] and ask the straw hat machine operator to page the on-call doctor for the discha rge attending physician. Discharging attending physician: JUDY SANTORO [[id number]] Tube Feeding Formula: Isosource 1.5 Schedule: Continuous rate of 45 milliliters per hour. Flush/Rinse: Use water 150 milliliters at one time. Give four times a day. Home Care Instructions: *Please remember to flush/rinse tube with water or normal saline after feed. Thi s will help prevent the tube from clogging. *Don't keep cans of formula open for more than 24 hours. *Stop feeding if you become nauseated or begin vomiting. Hold the next feeding for 1 hour. *Make sure you are sitting up during and after feeding. *Give bolus or syringe feeding over 20 minutes. Feedings given too fast can cau se cramping and loose stools. Wound Care Keep wound clean and dry. Do not submerge under water. Opioid (Narcotic) Safety Information OPIOID (NARCOTIC) PAIN MEDICATION SAFETY We care about your comfort, and believe you need opioid medications at this time to treat your pain. An opioid is a strong pain medication. It is only availab le by prescription for moderate to severe pain. Usually these medications are u sed for only a short time to treat pain, but sometimes will be prescribed for lo nger. Talk with your doctor or nurse about how long they expect you to need thi s medication. When used the right way, opioids are safe and effective medications to treat you r pain, even when used for a long time. Yet, when used in the wrong way, opioid s can be dangerous for you or others. Opioids do not work for everyone. Most p atients do not get full relief of their pain from opioid medication; full relief of your pain may not be possible. For your safety, we ask you to follow these instructions: *Only take your opioid medication as prescribed. If your pain is not controlled with the prescribed dose, or the medication is not lasting long enough, call yo doctor. *Do not break or crush your opioid medication unless your doctor or pharmacist s ays you can. With certain medications, this can be dangerous, and may cause verónica th. *Never share your medications with others, even if they appear to have a good re ason. Never take someone else's pain medication-this is dangerous, and illegal (a crime). Overdoses and deaths have occurred. *Keep your opioid medications safe, as you would with conklin, in a lock box or sim ilar container. *Make sure your opioids are going to be secure, especially if you are around chi ldren or teens. *Talk with your doctor or pharmacist before you take other medications. *Avoid driving, operating machinery, or drinking alcohol while taking opioid jenifer n medication. This may be unsafe. Pain medications can cause constipation. Constipation is bowel movements that ar e less often than normal. Stools often become very hard and difficult to pass. T his may lead to stomach pain and bloating. It may also cause pain when trying to use the bathroom. Constipation may be treated with suppositories, laxatives or stool softeners. A diet high in fiber with plenty of fluids helps to maintain re gular, soft bowel movements. Medication List START taking [...] wounds twice daily, secure sressings with tape. Latricia nge dressings daily docusate 50 mg/5 mL oral [...] as directed every 24 hours. Rotate patch location . Indications: Stop Smoking sertraline 50 mg tablet [...] chloride 0.9% (NS) 0.9 % 100 mL I VPB (MB+) cefTRIAXone 2 g Solr chlorhexidine gluconate [...] discharge Pending items needing follow up: Resume SEED POTATO CUTTER Lasix at LTACH. Continue cefepime un til 11/05 then continue a 4 week course with Rocephin 2 g IV BID for meningitis. This would continue until at least 4/1 (4 weeks from 10/16). She has 2 broken sternal wires by x-ray as well as CT scan. There does not jerald ear to be any associated abscess with her sternal nonunion. CTS did not feel thi s was emergent and would be happy to readdress this reconstruction with Plastic Surgery assist Signed: Mica Javed, VEGETABLE HARVEST WORKER 11/03/2018 cc: Primary Care Physician: Akbar Fonseca Verified Referring physicians: Radha Nance MD documented in this encounter Discharge Instructions * Patient Instructions* Oziel Salvador RN - 11/01/2018 5:03 PM CDT INTERVENTIONAL RADIOLOGY Discharge Instructions Gastrostomy Tube (G-tube) Change/ G-GJ Conversion A Gastrostomy tube or G-tube is a soft, narrow tube placed through the ski n and stomach wall directly into the stomach. It is used to give feedings, flu ids and medications. During or before the procedure, [...] cases, the tube may be advanced into th e upper portion of the small intestines (the jejunum). These are then referred to as a G-J tube or a J-tube. You may also hear the tube referred to as a PEG which is a gastrostomy tube placed in an alternate manner usi ng an endoscope. AFTER THE PROCEDURE: For routine G-tube or G-J tube changes, resume normal feeding and flushing ro utine. For conversion of G-tube to G-GJ, follow the instructions below: ? Your G-tube will be connected to a gravity drainage bag after placement. K eep bag connected for the first 12 hours post procedure. This is done to ens ure the stomach remains decompressed and to identify any bleeding. Do not use the G-tube until 12 hours after the procedure. At that time, you should di sconnect the bag and begin using the tube by instilling small amounts of water ( 50-100ml) using a large feeding syringe. Feedings may begin 24 hours after the procedure, if water is tolerated. Be sure to flush G-tube with 50ml of wate r after each feeding. (Contact your referring physician for instructions on feeding.) ? You must flush your tube with at least 50ml water, twice daily until feedings start. POST-PROCEDURE ACTIVITY: A responsible adult must drive you home. You should not drive, operate heMed Access machinery or do anything that requires concentration for at least 24 hours aft er receiving sedation or anesthesia. It is recommended [...] near the tube site or near the sut ure lock sites. Do not use ointments, creams or powders around the site unless ordered by you r physician. POST-PROCEDURE SITE CARE: Keep the dressing around the tube dry. Remove it in 1-2 days and leave the site open to air. For the first 2 days, clean around the tube site and the suture lock sites wi th warm water and mild soap. Rinse thoroughly and dry gently. You may use a cotton-tipped applicator or small piece of gauze. The suture locks look like s mall buttons around the tube. They typically detach from the abdomen and fall off in about 10 days as the sutures are absorbed. In rare cases, the suture lock s do not fall off and must be removed by the physician. The sutures will usual ly absorb completely in about 3 months. You may shower after 24 hours and you should gently clean around the tube sit e while in the shower using mild soap. If you are unable to shower, continue t o clean around the tube site and suture lock sites daily as described above. Do not submerge the tube site underwater (no tub bath, swimming/hot tub, etc. ) DIET/MEDICATIONS: If you are able to take oral feedings, begin with a clear liquid diet 12 hour s after your tube is placed. If you are tolerating liquids with no distentio n or abdominal pain, you may begin to eat and drink 24 hours after the procedure . Begin with a clear liquid diet and advance to a normal diet as you can quinten ate. Avoid any foods or beverages containing alcohol for at least 24 hours after r eceiving sedation or anesthesia. Please see attached Medication Reconciliation Sheet for instructions on resum ing your home medications. If you are on blood thinning medications, you must contact your doctor who manages them to receive instructions on when to resume t hem and on when blood work should be done. WHEN TO CALL THE DOCTOR: (Please call [phone] for severe symptoms) You have bleeding from the tube site or through the tube. You are coughing up or vomiting blood or see blood in your stool. You have severe pain at the site or increasing abdominal discomfort. (Some so reness at the site is normal for a [...] for problems or concerns related to the procedu re, call [phone] for Monday-Monday 7-5. After-hours and weekends, ple ase call [phone] and ask for the Interventional Research Advisor [facility]. * Appointments* Mica Javed APRN - 11/03/2018 [...] solution nebulizer as directed twice daily. 11/03/2018 chlorhexidine gluconate Swish and 0 (PERIDEX) [...] mL IVPB (MB+) hours for 2 days. 11/06/2018 12/20/2018 cefTRIAXone (ROCEPHIN) 2 Administer 20 0 g solr mL through vein every 12 hours. documented as of this encounter Progress Notes [...] fully evaluated, and discussed patient with the Neuro-EN T ICU team. The patient is ill after transfer from OSH 10/19 with R temporal lobe intraparench ymal air and surrounding edema concerning for developing abscess. Active hospita l problems include: R temporal lobe intraparenchymal air and surrounding edema concerning for develo ping abscess - improved Strep pneumo bacteremia - resolved HCAP, influenza A+ - improved Acute hypoxic and hypercapneic respiratory failure on mechanical ventilation - i mproving Waxing and waning acute encephalopathy consistent with delirium CAD s/p CABG (07/2018) with sternal non-union and B/L LE saphenous graft site in fections HTN HLD COPD Tobaccoism Acute on chronic anemia No critical care services today - subsequent hospital care. 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 Cont SBTs - tolerated PSV for a ful l 24 hours yesterday. Continue today altho will do short trial on trach shield this morning to see how she does. Suspect acute encephalopathy/delirium/ing may also play a role in vent we aning difficulties as pt had another episode of tachycardia and "panic" on evening that became worse with ativan. Ordered 1mg risperdal and melatonin t o be adminstered Mon which seemed to be beneficial - no episodes of panic noted and she reportedly slept well - continue. Ativan has been taken off the M AR. Precedex is also off the MAR - while it works well for her at night, am try ing to find a regimen that will be suitable post-ICU discharge. ID - afebrile but mild leukocytosis and increasing thrombocytosis noted over the last several days. Pt looked well but was concerned she might have something b rewing. Sent procal - it was negative and platelets were down today. Hold diuresis today as BUN/cr up some in the context of decreased intake due to new PEG (was NPO for a day or so). Ok to resume SEED POTATO CUTTER lasix dose tomorrow. Dispo: This patient is recovering well from her acute illness and is stable for discharge to LTAC today for additional vent weaning. Team to call her mandy yip to let him know. Staff name: Julia [...] (NS) 100 mL IVPB (MB+) 2 g Intra venous Q8H* [START ON 11/06/2018] cefTRIAXone (ROCEPHIN) IVP [...] mg/day patch 1 patch 1 patch Transdermal QDAY(2 1) ofloxacin (FLOXIN) 0.3 % (ophthalmic for otic use) solution 4 drop 4 drop Both E ars TID potassium chloride oral solution 20 mEq [...] Meds:acetaminophen Q4H PRN, acetaminophen Q4H PRN, calcium g luconate IV PRN (Customs Examiner from Rx) AND Ionized Calcium PRN AND Notify Ph ysician Ongoing, fentaNYL citrate PF Q1H PRN, ipratropium/albuterol Q4H PRN, mag nesium sulfate PRN AND [CANCELED] Magnesium PRN AND Notify Physician Raul oing, oxyCODONE Q4H PRN, pancrelipase 20,000 Units/ sodium bicarbonate 650 mg(#) PRN (Customs Examiner from Rx), potassium chloride SR PRN OR potassium chloride PRN Vital Signs: Last Filed Vital Signs: 24 Hour Ra nge BP: 127/94 (11/03 1000) Temp: 37.1 C (98.8 F) (11/03 0800) Pulse: 113 (11/03 0900) Respirations: 22 PER MINUTE (11/03 09) SpO2: 100 % (11/03 09) O2 Delivery: Tracheal Tube (11/03 0700) Weight: [...] 8.6 oz) 52.2 kg (115 lb 1.3 oz) [...] Therapy: Yes: Weaning readiness screen (RT Only):: Impl ement protocol Weaning readiness screen Met (RT Only):: [...] radiology reviewed. Julia Santoro MD 11/03/2018 Pager: [phone] * Mica Javed APRN - 11/03/2018 7:30 [...] with history of HTN, HLD, non-healing leg wound s, CAD s/p CABG in 07/2018 who presented to an OSH on 10/16 with shortness of yasmani th and chest pains and found to have a RUL pneumonia. She was intubated on 10/17 2 /2 worsening respiratory status and AMS. On 10/19, CTA with R temporal lobe intrap arenchymal air and surrounding edema. Transferred to [facility] for escalation of care . Hospital and ICU course: 3/8: Transferred from OSH to [facility] 10/23: LP 10/26: DC amiodarone. Start spironolactone 12.5mg daily and lasix 20mg daily. Mamta gildardo flexiseal 10/29: trach placement 10/31: DC Ativan, increase risperidone to 1mg HS, add melatonin 3mg HS. CXR to ev al for complaints of SOA. DC central line. 11/01: Lasix 20 mg; PEG placement 11/02: Metoprolol resumed, water flushes per PEG, resume tube feeds at 1900. Thro mbocytosis, slight leukocytosis, procal and cdiff sent. Trach change planned for today 11/02: Metoprolol decreased to 37.5mg. Did well on PS 5/5 overnight. DC to LTACH today Neuro/ENT: Encephalopathy Meningitis Right temporal lobe abscess Depression -[id number] -PT/OT -Sertraline HS Sedation/Pain Management: Delirium -PRN [...] 160 -MAP goal > 65 - holding SEED POTATO CUTTER lisinopril - Resuming metoprolol- Will drop dose to 37.5 2/ soft BP - continuePTA atrovastatin and ASA - diuresed 11/01 - Resume SEED POTATO CUTTER Lasix at LTACH Respiratory: Acute hypoxic and hypercapneic respiratory failure on mechanical ventilation S/p Trach placement 10/29 per ENT Chest Xray 10/31:Progressing mixed opacities most apparent in the left perihilar region and left midlung. Persistent cardiomegaly with vascular congestion and small bilater al pleural effusions. - Currently on PS 5/5- will continue with PS open ended -SEED POTATO CUTTER budesonide - trach to be changed per [...] Electrolyte protocol in place Magnesium goal >2.0, i-John goal > 1.0, Potassium goal >4.0 mEq/L Prophylaxis Review: A)GI: [id number] B) Lines:Yes; Central Line; Indication: Frequent blood draws; Type: Inte rnal jugular- Remove today C) Urinary Catheter:No D) Antibiotic Usage:Yes; Infection present or suspected: Lung; Pneumonia E) VTE:Pharmacological prophylaxis; SQ Heparinand Mechanical prophylaxis; Sequential compression device F) Isolation:Droplet G)Seizures:na I) Restraints: Patient assessed for need for restraints. Disposition/Family:Stable for transfer to [facility] Primary service:NEICU Consults: ENT, ID, PT/OT, Dietary, Wound Team SUBJECTIVE Etelvina Alonso is a 58 y.o. female. Overnight Events: No new events noted. OBJECTIVE Vital Signs: Last Filed Vital Signs: 24 Hour Ra nge BP: 101/51 (11/03 699) Temp: 37.2 C [...] 8.6 oz) 52.2 kg (115 lb 1.3 oz) Artificial airway: Tracheostomy Tube Ventilator/ Respiratory Therapy: Yes: Weaning readiness screen (RT Only):: Impl ement protocol Weaning readiness screen Met (RT Only):: [...] temperature 37.2 C (98.9 F), height 162.6 c m (64"), weight 52.2 kg (115 lb 1.3 oz), SpO2 100 %. Daily coma score: E: 4 - Opens eyes on own M: 6 - Follows simple motor commands V: 1T Neuro: Mental Status:Alert&Oriented x 3, remainswith trach Cranial Nerves: - Pupil exam: Size: R - 3mm, L - 4mmReactivity: brisk - Corneal reflex: R- prese ntL- present - Grimace/facial movement: p resent - Cough: present Motor: Moves all extremities spontaneously and t o command 5/5 Lungs:clear to auscultation bilaterally Pulmonary:Respiratory status:Stableon mechanical ventilation Heart:S1, S2 normal Abdomen:soft, non-tender. Bowel sounds normal. No masses, no organomegaly Extremities:extremities normal, atraumatic, no cyanosis or edema Skin:Skin color, texture, turgor normal. No rashes or lesions Point of Care Testing: (Last 24 hours) Lab Review: Pertinent labs reviewed Radiology and Other Diagnostic Procedures Review: Pertinent radiologic and diag nostic procedures reviewed. Mica Javed APRN Date: 11/03/[phone] Mrs. Alonso is in stable condition with: R temporal lobe abscess, encephalopathy, bacteremia, HCAP, HTN, CAD, respiratory failure.Cares included: detailed neuro logic and systems exam, medication review, laboratory data review and interpreta tion, electrolyte management, review of available imaging, DVT/PE prophylaxis re view, diet review, activity review, mechanical ventilation and sedation manageme nt, and coordination of care with consulted teams * Radha Hu, MARI - 11/02/2018 5:30 PM CDT Pt received pain med, pt states pain improving, but exhibits very anxious behavi or after leaving. Notified neuro ICU HR 136, bp 139/94, received orders to give metropolol pm dose a little earlier. * Sudha Madera - 11/02/2018 3:06 PM CDT CLINICAL NUTRITION Clinical Nutrition Follow-Up Summary NAME:Etelvina Alonso :1960 AG E: 58 y.o. ADMISSION DATE: 10/19/2018 DAYS ADMITTED: [...] ml/hr + 1 pack Prosource per day t o provide 1680 kcal, 88 gm protein and 820 ml free water from EN at goal. 150 m l q6hrs. Comments: 58 yo female with hx of COPD, HTN, HLD, CAD s/p CABG in 07/2018 with non- healin g leg wounds who presented to an OSH on 10/16 with shortness of breath and chest p ains and was found to have a RUL pneumonia. She was intubated on 10/17 secondary t o worsening respiratory status and AMS. On 10/19, CTA showed R temporal lobe intra parenchymal air and surrounding edema. Transferred to [facility] for escalation of car e. Pt intubated via trach placed 10/29. NGT in place. No longer sedated. EN was h eld 24 hr starting 11/01 for PEG placement; will resume EN tonight. Subjective da ta in note from 10/29. Stage III pressure [...] Frame: Throughout Stay Status: Partially met;Ongoing Sudha Madera, Milliner Helper *[id number] Associated attestation - Joy Spencer - 11/02/2018 3:09 PM CDT Discussed case with resident intern & concur with resident intern's documentation of assessment, interventions and goals. Erika Spencer RD, LD Pager: [phone] * Elenita ButlerDALILA - 11/02/2018 1:16 PM CDT OCCUPATIONAL THERAPY PROGRESS NOTE Patient Name: Etelvina Alonso Room/Bed: [place] [address] Admitting Diagnosis: altered mental status Mobility Progressive Mobility Level: Active transfer to chair Distance Walked (feet): (3 ft sidestep, then pivot) Level of Assistance: Assist X2 Activity Limited By: Lines / Medical Devices Subjective Pertinent Dx per Physician: HTN, HLD, no nhealing leg wounds, CAD s/p CABG in in [place] who presented to an OSH on 10/16 with shortness of breath and melquiades st pains and found to have a RUL pneumonia. She was intubated on 10/17 2 worseni ng respiratory status and AMS. Workup showed cerebritis, tegmen dehisence, encep halocele, possible temporal lobe abscess. Sternal nonunion, 2 loosened sternal w ires, nonop per CTS. s/p trach, B myringotomy and tube placement, R mastoidectom y 10/29 Precautions: Falls;NPO Comments: pt reports pain [...] Pressure Support SpO2 (%) Respiratory Rate (RR) Lo cation of Endotracheal tube (ETT) at the gums [...] upright tolerance, grooming chair or stand level, transf ers, vent walk with PT? ADL Goals Patient Will Perform Grooming: w/ Minimum Assist;in Chair Patient Will Perform LE Dressing: w/ Minimum Assist Other ADL Goal 1: Pt to sit edge of bed with minimal assist X3 minutes with stab le vitals(MET) Functional Transfer Goals Pt Will Perform All Functional Transfers: Minimum Assist Pt Will Transfer To Bedside Commode: w/ Minimum Assist Arm Goals Pt Will Perform AROM: 10 Reps(all planes of motion with stable vitals) OT Discharge Recommendations OT Discharge Recommendations: Inpatient Setting Equipment Recommendations: Too early to be determined Therapist: Elenita Butler, OT Date: 11/02/2018 * Louise Hennessy, PT - 11/02/2018 1:15 PM CDT PHYSICAL THERAPY PROGRESS NOTE SUBJECTIVE: Subjective Significant hospital events: Presented to an OSH on 10/16 with shortness of breath and chest pains and found to have a RUL pneumonia. She was intubated on 10/17 2/2 worsening respiratory status and AMS. On 10/19, CTA with R temporal lobe intrapar enchymal air and surrounding edema. Transferred to [facility] for escalation of care. Flail sternum and pna contributed to difficulty weaning vent. Repeat MRI showed right inferior temporal cerebritis that has coalesced into an abscess. Bilateral myringotomy and tube, Mastoidectomy, and Tracheostomy on 10/29. Mental / Cognitive Status: Alert;Cooperative;Follows Commands;Ventilator;Tracheo stomy Persons Present: Occupational Therapist Pain: Patient has no complaint of pain Ambulation Assist: Independent Mobility in Community without Device Home Situation: Lives with Family Ventilator settings Ventilator Mode FiO2 (%) PEEP Pressure Support SpO2 (%) Respiratory Rate (RR) Lo cation of Endotracheal tube (ETT) at the [facility] CPAP 40 5 5 Pre [...] Transfer: Assistance Level: To/From;Bed;Minimal Assist(second person for ventila tor management. ) Transfer: Assistive Device: Hand Hold Assist Transfers: Type Of Assistance: For Balance;For Strength Deficit;For Safety Consi derations Other Transfer Type: Stand Pivot Other Transfer: Assistance Level: From;Bed;To;Bed Side Chair;Minimal Assist;of 1 st person;Standby Assist;of 2nd person Other Transfer: Assistive Device: Hand Hold Assist Other Transfer: Type Of Assistance: For Balance;For Strength Deficit;For Safety Considerations End Of Activity Status: Up in Chair;Nursing Notified;Instructed Patient to Reque st Assist with Mobility;Instructed Patient to Use Call Light(chair alarm on) BALANCE: Balance Sitting Balance: Static Sitting Balance;Standby Assist;1 UE Support(few periods of minimal assist ) Standing Balance: Static Standing Balance;2 UE support;Minimal Assist GAIT: Gait Gait Distance: 5 feet Gait: Assistance Level: Minimal Assist;of 1st person;Safety Considerations;of 2n d person Gait: Assistive Device: Hand Hold Assist [...] Topics: Plan/Goals of PT Interventions;Importance of Increasing Activity;Recomme nd Continued Therapy ASSESSMENT/PROGRESS: Assessment/Progress Impaired Mobility Due To: Decreased Activity Tolerance;Medical Status Limitation Assessment/Progress: Should Improve w/ Continued PT AM-PAC 6 Clicks Basic Mobility Inpatient Turning from your back to your side while in a flat bed without using bed rails: A Little Moving from lying on your [...] to chair transfers. Trial vent walk as patie nt tolerance allows RECOMMENDATIONS: PT Discharge Recommendations PT Discharge Recommendations: Inpatient Setting;Recommend Physical Medicine and Rehabilitation Consult to address most appropriate level of rehabilitation place ment Therapist: Louise Hennessy, PT Date: 11/02/2018 * Judy Santoro MD - 11/02/2018 10:59 AM CDT NEURO-ENT ICU Critical Care Progress Note Today's Date: 11/02/2018 Name: Etelvina Alonso Admission Date: 10/19/2018 LOS: 14 days ICU problem list: Patient Active Problem List Diagnosis Date Noted Hypertension, essential 11/01/2018 Hyperlipidemia 11/01/2018 CAD (coronary artery disease) 11/01/2018 COPD (chronic obstructive pulmonary disease) ([facility]) 11/01/2018 Depression 11/01/2018 Pneumocephalus 10/26/2018 Cerebritis 10/26/2018 Influenza A 10/26/2018 Abscess of brain 10/26/2018 Paroxysmal atrial fibrillation (HCC) 10/25/2018 Altered mental status, unspecified 10/20/2018 Pneumonia due to infectious organism 10/19/2018 Acute respiratory failure with hypoxia and hypercapnia ([facility]) 10/19/2018 ATTESTATION Date of Service: 11/02/2018 I have seen, personally fully evaluated, and discussed patient with the Neuro-EN T ICU team. The patient is critically ill after transfer from OSH 10/19 with R temporal lobe i ntraparenchymal air and surrounding edema concerning for developing abscess. 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/2018) with sternal non-union and B/L LE saphenous graft site in fections HTN HLD COPD Tobaccoism Acute on chronic anemia I spent 35 minutes (excluding time spent performing or supervising any procedu res) providing and personally directing critical care services including -review of serial neurologic, hemodynamic, respiratory, telemetry, laboratory an d imaging data -management of fluids/electrolytes, antibiotics, vasoactive medications, gas exc hange/mechanical ventilation, sepsis protocol, ICU prophylaxis and ICU core me asures -pain/sedation/delirium mgt -medication review and management -organization and coordination of care with patient (or surrogate), ICU team and consulting services. -directing the formulation of the overall plan of care outlined below. 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 Cont SBTs - tolerated PSV for almos t a full 24 hours yesterday. Will try for continuous PSV today. Suspect acute encephalopathy/delirium/ may also play a role in vent we aning difficulties as pt had another episode of tachycardia and "panic" on evening that became worse with ativan. Ordered 1mg risperdal and melatonin t o be adminstered Mon night which seemed to be beneficial - no episodes of panic noted and she reportedly slept well - continue. Ativan has been taken off the M AR. Precedex is also off the OCT - while it works well for her at night, am try ing to find a regimen that will be suitable post-ICU discharge. CXR with some pulmonary edema - diuresed yesterday altho not as negative as we p lanned. Hold diuresis today, however, as she's NPO given new PEG. Will see whe re she shakes out and restart gentle diuresis tomorrow. Remainder of plan per VEGETABLE HARVEST WORKER's note. Dispo: This patient is critically ill [...] (NS) 100 mL IVPB (MB+) 2 g Intra venous Q8H* [START ON 11/06/2018] cefTRIAXone (ROCEPHIN) IVP [...] mg/day patch 1 patch 1 patch Transdermal QDAY(2 1) ofloxacin (FLOXIN) 0.3 % (ophthalmic for otic use) solution 4 drop 4 drop Both E ars TID potassium chloride oral solution 20 mEq [...] Meds:acetaminophen Q4H PRN, acetaminophen Q4H PRN, calcium g luconate IV PRN (Customs Examiner from Rx) AND Ionized Calcium PRN AND Notify Ph ysician Ongoing, fentaNYL citrate PF Q1H PRN, ipratropium/albuterol Q4H PRN, mag nesium sulfate PRN AND [CANCELED] Magnesium PRN AND Notify Physician Raul oing, oxyCODONE Q4H PRN, pancrelipase 20,000 Units/ sodium bicarbonate 650 mg(#) PRN (Customs Examiner from Rx), potassium chloride SR PRN OR potassium chloride PRN Vital Signs: Last Filed Vital Signs: 24 Hour Ra nge BP: 114/60 (11/02 0800) Temp: 37.2 C (99 F) (11/02 0800) Pulse: 106 (11/02 0800) Respirations: 20 PER MINUTE (11/02 899) SpO2: [...] radiology reviewed. Julia Santoro MD 11/02/2018 Pager: [phone] * Kiara Herman APRN - 11/02/2018 8:45 AM CDT Interventional Radiology Progress Note Today's Date: 11/02/2018 Name: Etelvina Alonso MRN: [id number] Admission Date: 10/19/2018 LOS: 14 days Subjective: Post-Procedural Day: 1 Etelvina Alonso is a 58 y.o. female s/p PEG tube insertion. Overnight Events:No new events noted . Pain is well controlled, she reports pain and tenderness around the site. Pt denies nausea, vomiting, bloating, fever, and chills. Assessment/Plan: Hgb and vital signs stable. No current abdominal distention or abnormal bleeding . May disconnect gravity drainage bag and begin water bolus trial (50mL q 2 hrs x 12 hrs). If pt's tolerates boluses well without abdominal distention, pain, or v omiting feedings may begin per hospital protocol. Ensure adequate flush of G-tub e with 50ml of water after each feeding. Clean site with soap and water daily an d PRN. May place drain sponge dressing if desired. Please notify IR DEPUTY FIRE MARSHAL for exces sive bleeding/redness/drainage noted from insertion site or if pt is experiencin g vomiting or excessive abd pain believed to be r/t G tube. T-fasteners (white b uttons surrounding PEG tube) have dissolving sutures that will allow fasteners t o fall off within 10-14 days p procedure. Thank you for allowing us to participate in this patient's care. Please page wit h questions. If paging after hours or on weekends, please page IR resident on-ca ll at [phone] Problem List: Active Problems: Pneumonia due to infectious organism Acute respiratory failure with hypoxia and hypercapnia (HCC) Altered mental status, unspecified Paroxysmal atrial fibrillation (HCC) Pneumocephalus Cerebritis Influenza A Abscess of brain Hypertension, essential Hyperlipidemia CAD (coronary artery disease) COPD (chronic obstructive pulmonary disease) (HCC) Depression Objective: Patient is resting on vent. Slight pain around site. Discussed with patient this was normal. Medications: Scheduled Meds: ascorbic acid (VITAMIN C) [...] (NS) 100 mL IVPB (MB+) 2 g Intra venous Q8H* [START ON 11/06/2018] cefTRIAXone (ROCEPHIN) IVP [...] mg/day patch 1 patch 1 patch Transdermal QDAY(2 1) ofloxacin (FLOXIN) 0.3 % (ophthalmic for otic use) solution 4 drop 4 drop Both E ars TID ondansetron (ZOFRAN) injection 4 mg 4 [...] Meds:acetaminophen Q4H PRN, acetaminophen Q4H PRN, calcium g luconate IV PRN (Customs Examiner from Rx) AND Ionized Calcium PRN AND Notify Ph ysician Ongoing, fentaNYL citrate PF Q1H PRN, ipratropium/albuterol Q4H PRN, mag nesium sulfate PRN AND [CANCELED] Magnesium PRN AND Notify Physician Raul oing, oxyCODONE Q4H PRN, pancrelipase 20,000 Units/ sodium bicarbonate 650 mg(#) PRN (Customs Examiner from Rx), potassium chloride SR PRN OR potassium chloride PRN Vital Signs: Last Filed Vital Signs: 24 Hour Ran ge BP: 128/102 (11/02 0700) Temp: 37.2 C (99 F) (03/22 0400) Pulse: 114 (11/02 837) Respirations: 22 [...] or performed during the hospital encounter of 10/19/18 (from the past 24 hour(s)) POTASSIUM Collection [...] - 4.5 MG/DL Kiara Herman APRN Pager [phone] * Mica Javed APRN - 11/02/2018 7:08 [...] with history of HTN, HLD, non-healing leg wound s, CAD s/p CABG in 07/2018 who presented to an OSH on 10/16 with shortness of yasmani th and chest pains and found to have a RUL pneumonia. She was intubated on 10/17 2 /2 worsening respiratory status and AMS. On 10/19, CTA with R temporal lobe intrap arenchymal air and surrounding edema. Transferred to [facility] for escalation of care . Hospital and ICU course: 10/19: [facility] OSH [facility] 10/23: LP 10/26: DC amiodarone. Start spironolactone 12.5mg daily and lasix 20mg daily. Mamta gildardo flexiseal 10/29: trach placement 10/31: DC Ativan, increase risperidone to 1mg HS, add melatonin 3mg HS. CXR to ev al for complaints of SOA. DC central line. 11/01: Lasix 20 mg; PEG placement 11/02: Metoprolol resumed, water flushes per PEG, resume tube feeds at 1900. Thro mbocytosis, slight leukocytosis, procal and cdiff sent. Trach change planned for today Neuro/ENT: Encephalopathy Meningitis Right temporal lobe abscess Depression - [id number] - PT/OT - Sertraline HS Sedation/Pain Management: Delirium - PRN fentanyl, oxycodone and tylenol available - Melatonin 3mg HS, risperdal 1 mg HS - Assess for delirium daily Cardiac: HTN HLD CAD s/p CABG in 07/2018 Paroxysmal AF Echo: 35-40%, mitral valve borderline prolapse and regurg no vegetations, Mild T R JYOTSNA:There is a small echogenic mass on the coaptation line of the aortic valve - SBP goal: < 160 - MAP goal > 65 - holding SEED POTATO CUTTER lisinopril - Resuming metoprolol- Tolerated 50mg this AM- will leave at this dose, continue to eval - continue SEED POTATO CUTTER atrovastatin and ASA - diuresed 11/01 Respiratory: Acute hypoxic and hypercapneic respiratory failure on mechanical ventilation S/p Trach placement 10/29 per ENT Chest Xray 10/31:Progressing mixed opacities most apparent in the left perihilar region and left midlung. Persistent cardiomegaly with vascular congestion and small bilater al pleural effusions. - Currently on PS /- will continue with PS open ended - SEED POTATO CUTTER budesonide - trach to be changed per ENT 11/02 GI: - Feeding: NPO, ResumeIsosource 1.5 @ 50 ml/hr with free water 150 ml every 6 hours at 1900 tonight - start water flushes via PEG 100ml q4hr - Bowel regimen, ensure daily BM(last BM 11/02) - Resend CDiff - Famotidine BID Heme: Thrombocytosis- 2/ acute illness Normocytic [...] for CDiff today in light of ongoing t hrombocytosis and slight leukocytosis - Cdiff negative 10/24 [...] Electrolyte protocol in place Magnesium goal >2.0, i-John goal > 1.0, Potassium goal >4.0 mEq/L Prophylaxis Review: A)GI: [id number] B) Lines:Yes; Central Line; Indication: Frequent blood draws; Type: Inte rnal jugular- Remove today C) Urinary Catheter:No D) Antibiotic Usage:Yes; Infection present or suspected: Lung; Pneumonia E) VTE:Pharmacological prophylaxis; SQ Heparinand Mechanical prophylaxis; Sequential compression device F) Isolation:Droplet G)Seizures:na I) Restraints: Patient assessed for need for restraints. Disposition/Family:Require ICU monitoring Primary service:NEICU Consults: ENT, ID, PT/OT, Dietary, Wound Team SUBJECTIVE Etelvina Alonso is a 58 y.o. female. Overnight Events: Tachycardic overnight, give n metoprolol IV. OBJECTIVE Vital Signs: Last Filed Vital Signs: 24 Hour Ra nge BP: 128/102 (11/02 0600) Temp: 37.2 C (99 F) (11/02 0400) [...] - 4mmReactivity: brisk - Corneal reflex: R- prese ntL- present - Grimace/facial movement: p resent - Cough: present Motor: Moves all extremities spontaneously and t o command 5/5 Lungs:clear to auscultation bilaterally Pulmonary:Respiratory status:Stableon mechanical ventilation Heart:S1, S2 normal Abdomen:soft, non-tender. Bowel sounds normal. No masses, no organomegaly Extremities:extremities normal, atraumatic, no cyanosis or edema Skin:Skin color, texture, turgor normal. No rashes or lesions Point of Care Testing: (Last 24 hours) Lab Review: Pertinent labs reviewed Radiology and Other Diagnostic Procedures Review: Pertinent radiologic and diag nostic procedures reviewed. Mica Javed APRN Date: 11/02/[phone] I spent 45 minutes managing the care of this patient. Mrs. Alonso is critically il l with: R temporal lobe abscess, encephalopathy, bacteremia, HCAP, HTN, CAD, res piratory failure. Cares included: detailed neurologic and systems exam, medicati on review, laboratory data review and interpretation, electrolyte management, re view of available imaging, DVT/PE prophylaxis review, diet review, activity revi ew, mechanical ventilation and sedation management, and coordination of care wit h consulted teams * Benny Sepulveda MD - 11/02/2018 7:04 AM CDT Infectious Disease Progress Note Name: Etelvina Alonso Today's Date: 11/02/2018 Admission Date: 10/19/2018 Consulted for Cerebritis suspected Type of consult: Co-management w/signed orders Assessment: Strep pneumo bacteremia Bilateral LE wounds due to CABG vein harvest, both tracking deep, L with purulen t drainage Pneumocephalus with surrounding edema on CTA head 10/19/18 at OSH, cerebritis, pos sible developing abscess in basal right temporal lobe on MRI head 10/20/18 Influenza A with possible HCAP Acute hypoxic/hypercarbic respiratory failure, s/p tracheostomy 10/29/18 S/p mastoidectomy on the right, bilateral myringotomy w/tympanostomy tube placem ent 10/29/18 -Past concern for biliateral LE wound infection as below -10/16 presented to [facility] with a few days of fever, cough -10/16/18: BC x 2 Strep Pneumo R- Clindamycin and erythromcyin S: ceftriaxone (MARCY 0.094), PCN (MARCY 0.064), levo, TMP/S, vanc. Rapid Flu Ag negative. MRSA nasal screen negative. 10/17/18: Sputum culture: Yeast and normal chelsey -Rapid mental status deterioration, intubated -CTA head 10/19/18 at OSH, small area of intraparenchymal air above the mastoid ai r cells and some edema around that area, with concern for possible infection. Pt was transferred to for further management -10/19: CXR patchy mixed alveolar and interstitial opacities -10/20: Tracheal aspirate: < 10 PMN, < 10 squam, no orgs. Moderate growth no significant chelsey -10/20: LLE swab: Pseudomonas aeruginosa (R - meropenem, ceftazidime, pip/tazo; S - cefepime, tobramycin, gentamicin, ceftolozane/tazobactam and ceftazidime/aviba ctam) -10/20: MRI head w/wo: Ovoid focus of diffusion restriction and partial rim enhanc ement in the basal right temporal lobe overlying the tegmen suggestive of focal cerebritis and developing abscess. Dependent diffusion restricting material wi thin the lateral ventricles suspicious for ventriculitis. Thin complex left po sterolateral convexity subdural fluid collection with diffusion restriction sugg estive of thin subdural empyema. -10/23: JYOTSNA: There [...] mass on the coaptation line of the aor tic valve. Appears to likely be associated with the left coronary cusp. A vegeta tion cannot be ruled out. 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 No stenosis. No regurgitation. Concern for bilateral LE wound infection, [facility] Bilateral vein harvest sites on lower extremities from CABG in [facility] jena, 07/2018 Multiple cultures in [facility], [place]. 09/07/18- Culture from R leg incision - [...] Mid To Distal Anteroapical Severe Hypokinesis To Akine sis, anterior mitral valve prolapse, moderate posterior lateral jet MV regurg S/p G-tube placement 11/01/18 HTN Depression Possible overdose prior to 10/16 admission -gabapentin, APAP/caffeine/butalbital H/o previous LE rash that improved after CABG Recommendations: -Continue cefepime given her LLE wound growing Pseudomonas that shows resistance to meropenem. 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 Will tentatively plan for 2 weeks (from 10/23) of cefepime to treat both the LE wound infections and Strep pneumo bacter emia and suspected HARDWARE ENGINEER abscess. Tentative last day of cefepime would be 11/05. -After cefepime she should be transitioned to ceftriaxone 2 g IV BID for meningi tis. This would continue until at least 11/12 (4 weeks from 10/16). -Monitor for abx side effects -If on DC pt transfers to [facility], their ID physicians will take over ID care. Benny Sepulveda MD Driver License Reviewing Officer Division of Infectious Diseases Dr. Benjamin will round on Monday if she remains inpt. For any questions over the w eekend please page the ID fellow account contact associate at [phone] Interval History Etelvina Alonso is a 58 y.o. female with a PMH significant for CABG (07/2018) who p resented to [facility] in [facility] on 10/16/18 after noting worsening cough and sternal pain from recent sternotomy and non-healing LE graft sites. Transfe rred to [facility] on 10/19/18 for right temporal lobe intraparenchymal air and edema se en on CTA. Feels good, pain and anxiety well controlled. No n/v. No f/c/diaphoresis. Afebrile, PEG placement yesterday. WBC slightly up to 11.4 Cr 0.47, stable. ROS As mentioned in 'Interval History' otherwise 10-point ROS negative Antimicrobial Start date End date Cefepime 10/16/18-10/18/18, 10/23 active Ceftriaxone 10/18/18 10/20/18 Cefedinir 09/23/18 SEED POTATO CUTTER, uncertain timeframe Doxycycline 100 mg PO BID 09/06/18 SEED POTATO CUTTER, uncertain timeframe [id number] mg PO BID 08/23/18 SEED POTATO CUTTER, uncertain timeframe Fluconazole 150 mg PO QD 08/17/18 SEED POTATO CUTTER, uncertain timeframe Vancomycin 10/20/1810/24 Ampicillin 10/20/18 10/20/18 Fluconazole 10/20/18 10/26/18 Oseltamivir 10/21/1810/30 Meropenem 10/20/1810/23 Bactrim 08/17/18 SEED POTATO CUTTER, uncertain timeframe Estimated Creatinine Clearance: 72.1 mL/min (based on SCr of 0.47 mg/dL). Cardenas Results 10/24 C diff: negative 10/23 CSF GS/cx: rare neutrophils, no organisms seen, NGTD; WBCs 23 (86% lymphocy christopher, 9% mono/histocytes, 3% neutrophils), RBCs 1, glucose 70, protein 70; HSV PC R negative 10/22 Blood cx: NG 10/20 LLE [...] Susceptible: ceftriaxone-dilut method 0.094, levofloxacin, penicillin e-dilut m ethod 0.064, trimethoprim, and vancomycin 09/19/18 L leg: [...] (NS) 100 mL IVPB (MB+) 2 g Intra venous Q8H* [START ON 11/06/2018] cefTRIAXone (ROCEPHIN) IVP [...] mg/day patch 1 patch 1 patch Transdermal QDAY(2 1) ofloxacin (FLOXIN) 0.3 % (ophthalmic for otic use) solution 4 drop 4 drop Both E ars TID ondansetron (ZOFRAN) injection 4 mg 4 [...] Meds:acetaminophen Q4H PRN, acetaminophen Q4H PRN, calcium g luconate IV PRN (Customs Examiner from Rx) AND Ionized Calcium PRN AND Notify Ph ysician Ongoing, fentaNYL citrate PF Q1H PRN, ipratropium/albuterol Q4H PRN, mag nesium sulfate PRN AND [CANCELED] Magnesium PRN AND Notify Physician Raul oing, oxyCODONE Q4H PRN, pancrelipase 20,000 Units/ sodium bicarbonate 650 mg(#) PRN (Customs Examiner from Rx), potassium chloride SR PRN OR potassium chloride PRN Physical Examination Vital Signs: Last Vital Signs: 24 Hour Ran ge BP: 128/102 (11/02 0700) Temp: 37.2 C (99 F) (11/02 0400) [...] non-tender, non-distended, normoactive bowel sounds, G-tube in pl hernan Ext: healing ulcerations on medial aspect of [...] process or potential for limb-threatening infection as we ll as concerns including but not limited to complexity of the patient's underlyi ng illnesses, the identification and sensitivities of the organisms being treate d, the potential for antimicrobial toxicities and drug-drug interactions, concer ns regarding immunologic function, and interplay of other issues. Meningitis, br ain abscess, lab and imaging review, summary of old records, intensive abx monit oring. * Juvenal Gottlieb MD - 11/02/2018 6:51 AM CDT CLEMENTINE/HNS PROGRESS NOTE Today's Date: 11/02/2018 Admission Date: 10/19/2018 LOS: 14 days Subjective No acute events overnight. Remains on ventilator, but awake this AM. Following c ommands appropriately. Objective Vital Signs: Last Filed Vital Signs: 24 Ramiro r Range BP: 118/83 (11/02 0600) Temp: 37.2 C (99 F) (11/02 0400) Pulse: 113 (11/02 0609) Respirations: 23 PER MINUTE (11/02 06) SpO2: 99 % (11/02 06) O2 Delivery: Tracheal Tube (11/02 0700) SpO2 Pulse: 123 (11/02 0600) BP: (109-153)/(53-100) Temp: [37.2 C (98.9 F)-37.3 [...] patient was laid supine with the neck sli ghtly extended. All existing ties and sutures were removed and the patient's t rachestomy tube was removed after a bougie stylet was inserted as a placeholder. The stoma was suctioned and cleaned and found to be patent. A 6.0 Shiley cuff ed tracheostomy tube was then inserted into the stoma over the bougie. The obtu rator was removed and the inner cannula placed. Soft ties were used to secure t he new tracheostomy tube. The patient was returned [...] recent pneumonia. She is admitted for altered men madalyn status and was found to have pneumocephalus and cerebritis on imaging work u p with concerns for right temporal lobe overlying the tegmen suggestive of focal cerebritis and developing abscess. She is now s/p R mastoidectomy, bilateral my ringotomy with tube placement, and tracheostomy on 10/[address] Burch -- Agree with IV abx per primary -- Continue routine trach care. Tracheostomy changed to 6.0 cuffed Shiley this A M. Patient still requiring positive pressure ventilation. Will need trach suppli es (spare 6.0 Shiley and 4.0 Shiley as well as suction machine and spare inner c annulas) prior to discharge. Future trach changes can be performed by RT if comf ortable. Can change to cuffless trach when no longer requiring positive pressure . -- Continue otic drops in bilateral ears TID, local wound care with vaseline to postauricular incision -- Agree with continued aggressive medical management -- Patient can follow with Dr. Burch 2 weeks after discharge (ENT team will r equest appointment) Please page for any questions or concerns. Juvenal Gottlieb MD Otolaryngology Resident, [phone] * Mayda Demarco RN - 11/01/2018 5:03 PM CDT GJ Tube instructions. Vital signs q 15 minutes x 4, q 30 minutes x 2, q 1 hour x 4 then may resume marco antonio or order. Bedrest: inpatient [address] g-tube to gravity drainage bag for 12 hours post procedure. Do not flush during this time. Flush g-tube with 50mls of water 12 hours post pr ocedure. Tube feeding may be started 24 hours after procedure if water is tolerated. Flush g-tube with 50ml of water after each feeding. If patient is NPO, flush g-tube with 30-60mL water twice daily to maintain dalal ncy. Remove dressing 24-48 hours after g-tube placement. Wash stoma with water and pa t dry q day and PRN. May resume showering after g-tube site dressing has been re moved. * Mayda Demarco RN - 11/01/2018 4:44 PM CDT Sedation physician present in room. Recent vitals and patient condition reviewe d between sedating physician and nurse. Reassessment completed. [...] fully evaluated, and discussed patient with the Neuro-EN T ICU team. The patient is critically ill after transfer from OSH 10/19 with R temporal lobe i ntraparenchymal air and surrounding edema concerning for developing abscess. 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/2018) with sternal non-union and B/L LE saphenous graft site in fections HTN HLD COPD Tobaccoism Acute on chronic anemia I spent 35 minutes (excluding time spent performing or supervising any procedu res) providing and personally directing critical care services including -review of serial neurologic, hemodynamic, respiratory, telemetry, laboratory an d imaging data -management of fluids/electrolytes, antibiotics, vasoactive medications, gas exc hange/mechanical ventilation, sepsis protocol, ICU prophylaxis and ICU core me asures -pain/sedation/delirium mgt -medication review and management -organization and coordination of care with patient (or surrogate), ICU team and consulting services. -directing the formulation of the overall plan of care outlined below. 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 Cont SBTs - tolerated PSV for almos t a full 24 hours yesterday altho had to be placed on full vent support just daron efly this morning (am uncertain what happened - there is no documentation in the chart). Cont PSV today. Suspect acute encephalopathy/delirium/sundowning may also play a role in vent we aning difficulties as pt had another episode of tachycardia and "panic" on evening that became worse with ativan. Ordered 1mg risperdal and melatonin t o be adminstered last night which seemed to be beneficial - no episodes of panic noted and she reportedly slept well - continue again tonight. Ativan has been taken off the OCT. Precedex is also off the OCT - while it works well for her a t night, am trying to find a regimen that will be suitable post-ICU discharge. CXR with some pulmonary edema - diurese today. Goal net neg 1L by tomorrow meena meyers. Needs PEG - plan for today. Remainder of plan per VEGETABLE HARVEST WORKER's note. Dispo: This patient is critically ill [...] (NS) 100 mL IVPB (MB+) 2 g Intra venous Q8H* [START ON 11/06/2018] cefTRIAXone (ROCEPHIN) IVP [...] mg/day patch 1 patch 1 patch Transdermal QDAY(2 1) ofloxacin (FLOXIN) 0.3 % (ophthalmic for otic use) solution 4 drop 4 drop Both E ars TID ondansetron (ZOFRAN) injection 4 mg 4 [...] Meds:acetaminophen Q4H PRN, calcium gluconate IV PRN (On Ca ll from Rx) AND Ionized Calcium PRN AND Notify Physician Ongoing, fentaN YL citrate PF Q1H PRN, ipratropium/albuterol Q4H PRN, magnesium sulfate PRN AN D [CANCELED] Magnesium PRN AND Notify Physician Ongoing, oxyCODONE Q4H PRN , pancrelipase 20,000 Units/ sodium bicarbonate 650 mg(#) PRN (Customs Examiner from Rx), potassium chloride SR PRN OR potassium chloride PRN Vital Signs: Last Filed Vital Signs: 24 Hour Ra nge BP: 117/74 (11/01 1200) Temp: 37.2 C (99 F) (11/02 1199) Pulse: 117 (11/01 1200) Respirations: 17 PER MINUTE (11/01 1200) SpO2: 98 % (11/02 1199) O2 Delivery: [...] radiology reviewed. Julia Santoro MD 11/01/2018 Pager: [phone] * Elenita Butler, DALILA - 11/01/2018 11:22 AM CDT OCCUPATIONAL THERAPY PROGRESS NOTE Patient Name: Etelvina Alonso Room/Bed: JQ1100/01 Admitting Diagnosis: altered mental status Mobility Progressive Mobility Level: Stand Distance Walked (feet): 3 ft(sidesteps) Level of Assistance: Assist X2 Assistive Device: Hand Held Activity Limited By: Lines / Medical Devices;Fatigue;Weakness Subjective Pertinent Dx per Physician: HTN, HLD, no nhealing leg wounds, CAD s/p CABG in in [place] who presented to an OSH on 10/16 with shortness of breath and melquiades st pains and found to have a RUL pneumonia. She was intubated on 10/17 2 worseni ng respiratory status and AMS. Workup showed cerebritis, tegmen dehisence, encep halocele, possible temporal lobe abscess. Sternal nonunion, 2 loosened sternal w ires, nonop per CTS. s/p trach, B myringotomy and tube placement, R mastoidectom y 10/29 Precautions: Falls;NPO Comments: Pt reports mild pain at trach site. Asked for and recieved pain medica tions at end of session. Objective Psychosocial Status: [...] difficulty timing the advancement of LLE but a ble to do under her own power. Returned to bed end of session 2* to plan for IR shortly. Activity Tolerance Endurance: 3/5 Tolerates 25-30 Minutes Exercise w/Multiple Rests Sitting Balance: 2+/5 Supports Self w/ 1 UE Ventilator settings Ventilator Mode FiO2 (%) PEEP Pressure Support SpO2 (%) Respiratory Rate (RR) Lo cation of Endotracheal tube (ETT) at the [facility] CPAP 40 5 5 Pre [...] upright tolerance, grooming chair or stand level, transf ers, vent walk with PT? ADL Goals Patient Will Perform Grooming: w/ Minimum Assist;in Chair Patient Will Perform LE Dressing: w/ Minimum Assist Other ADL Goal 1: Pt to sit edge of bed with minimal assist X3 minutes with stab le vitals(MET) Functional Transfer Goals Pt Will Perform [...] On 10/19, CTA with R temporal lobe intrapar enchymal air and surrounding edema. Transferred to [facility] for escalation of care. Flail sternum and pna contributed to difficulty weaning vent. Repeat MRI showed right inferior temporal cerebritis that has coalesced into an abscess. Bilateral myringotomy and tube, Mastoidectomy, and Tracheostomy on 10/29. Mental / Cognitive Status: Alert;Cooperative;Follows Commands;Ventilator;Tracheo stomy Persons Present: Occupational Therapist Pain: Patient has no complaint of pain Ambulation Assist: Independent Mobility in Community without Device Home Situation: Lives with Family Ventilator settings Ventilator Mode FiO2 (%) PEEP Pressure Support SpO2 (%) Respiratory Rate (RR) Lo cation of Endotracheal tube (ETT) at the gums [...] Transfer: Assistance Level: To/From;Bed;Minimal Assist(second person for ventila tor management. ) Transfer: Assistive Device: Hand Hold Assist Transfers: Type Of Assistance: For Balance;For Strength Deficit;For Safety Consi derations End Of Activity Status: In Bed;Nursing Notified;Instructed Patient to Request As sist with Mobility;Instructed Patient to Use Call Light(bed alarm on) Comments: Patient able to perform sit to stand transfer x 2 trials with minimal assist of first person and second person for vent management. Able to take 2 mac ps forward and back and able to take 6 side steps to head of bed with minimal as sist. Slower to advance L foot but imporved from previous session. BALANCE: Balance Sitting Balance: Static Sitting Balance;Standby Assist;1 UE Support(few periods of minimal assist ) Standing Balance: Static Standing Balance;2 UE support;Minimal Assist GAIT: Gait Gait Distance: 3 feet Gait: Assistance Level: Minimal Assist;of 1st person;Safety Considerations;of 2n d person Gait: Assistive Device: Hand Hold Assist [...] Topics: Plan/Goals of PT Interventions;Importance of Increasing Activity;Recomme nd Continued Therapy ASSESSMENT/PROGRESS: Assessment/Progress Impaired Mobility Due To: Decreased Activity Tolerance;Medical Status Limitation Assessment/Progress: Should Improve w/ Continued PT AM-PAC 6 Clicks Basic Mobility Inpatient Turning from your back to your side while in a flat bed without using bed rails: A Little Moving from lying on your [...] to chair transfers. Trial vent walk as patie nt tolerance allows RECOMMENDATIONS: PT Discharge Recommendations PT Discharge Recommendations: Inpatient Setting;Recommend Physical Medicine and Rehabilitation Consult to address most appropriate level of rehabilitation place ment Therapist: Louise Hennessy, PT Date: 11/01/2018 * Benny Sepulveda MD - 11/01/2018 9:21 AM CDT Infectious Disease Progress Note Name: Etelvina Alonso Today's Date: 11/01/2018 Admission Date: 10/19/2018 Consulted for Cerebritis suspected Type of consult: Co-management w/signed orders Assessment: Strep pneumo bacteremia Bilateral LE wounds due to CABG vein harvest, both tracking deep, L with purulen t drainage Pneumocephalus with surrounding edema on CTA head 10/19/18 at OSH, cerebritis, pos sible developing abscess in basal right temporal lobe on MRI head 10/20/18 Influenza A with possible HCAP Acute hypoxic/hypercarbic respiratory failure, s/p tracheostomy 10/29/18 S/p mastoidectomy on the right, bilateral myringotomy w/tympanostomy tube placem ent 10/29/18 -Past concern for biliateral LE wound infection as below -10/[facility] with a few days of fever, cough -10/16/18: BC x 2 Strep Pneumo R- Clindamycin and erythromcyin S: ceftriaxone (MARCY 0.094), PCN (MARCY 0.064), levo, TMP/S, vanc. Rapid Flu Ag negative. MRSA nasal screen negative. 10/17/18: Sputum culture: Yeast and normal chelsey -Rapid mental status deterioration, intubated -CTA head 10/19/18 at OSH, small area of intraparenchymal air above the mastoid ai r cells and some edema around that area, with concern for possible infection. Pt was transferred to for further management -10/19: CXR patchy mixed alveolar and interstitial opacities -10/20: Tracheal aspirate: < 10 PMN, < 10 squam, no orgs. Moderate growth no significant chelsey -10/20: LLE swab: Pseudomonas aeruginosa (R - meropenem, ceftazidime, pip/tazo; S - cefepime, tobramycin, gentamicin, ceftolozane/tazobactam and ceftazidime/aviba ctam) -10/20: MRI head w/wo: Ovoid focus of diffusion restriction and partial rim enhanc ement in the basal right temporal lobe overlying the tegmen suggestive of focal cerebritis and developing abscess. Dependent diffusion restricting material wi thin the lateral ventricles suspicious for ventriculitis. Thin complex left po sterolateral convexity subdural fluid collection with diffusion restriction sugg estive of thin subdural empyema. -10/23: JYOTSNA: There [...] mass on the coaptation line of the aor tic valve. Appears to likely be associated with the left coronary cusp. A vegeta tion cannot be ruled out. 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 No stenosis. No regurgitation. Concern for bilateral LE wound infection, [facility] Bilateral vein harvest sites on lower extremities from CABG in [facility] jena, 07/2018 Multiple cultures in [facility], [place]. 09/07/18- Culture from R leg incision - [...] Mid To Distal Anteroapical Severe Hypokinesis To Akine sis, anterior mitral valve prolapse, moderate posterior lateral jet MV regurg HTN Depression Possible overdose prior to 10/16 admission -gabapentin, APAP/caffeine/butalbital H/o previous LE rash that improved after CABG Recommendations: -Continue cefepime given her LLE wound growing Pseudomonas that shows resistance to meropenem. 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 Will tentatively plan for 2 weeks (from 10/23) of cefepime to treat both the LE wound infections and Strep pneumo bacter emia and suspected HARDWARE ENGINEER abscess. Tentative last day of cefepime would be 11/05. -After cefepime she could be transitioned to ceftriaxone 2 g IV BID for meningit is. This would continue until at least 11/12 (4 weeks from 10/16). -Monitor for abx side effects -If on DC pt transfers to [facility], their ID physicians will take over ID care. Benny Sepulveda MD Driver License Reviewing Officer Division of Infectious Diseases Interval History Etelvina Alonso is a 58 y.o. female with a PMH significant for CABG (07/2018) who p resented to [facility] Lomas in [facility] on 10/16/18 after noting worsening cough and sternal pain from recent sternotomy and non-healing LE graft sites. Transfe rred to [facility] on 10/19/18 for right temporal lobe intraparenchymal air and edema se en on CTA. Seen this AM lying in bed on vent via trach. Denied any subjective fevers or ch ills, sweats, n/v, diarrhea, or rashes. Anxiety intermittently continues. Afebrile WBC 8.5, WNL Cr 0.43 ROS As mentioned in 'Interval History' otherwise 10-point ROS negative Antimicrobial Start date End date Cefepime 10/16/18-10/18/18, 10/23 active Ceftriaxone 10/18/18 10/20/18 Cefedinir 09/23/18 SEED POTATO CUTTER, uncertain timeframe Doxycycline 100 mg PO BID 09/06/18 SEED POTATO CUTTER, uncertain timeframe [id number] mg PO BID 08/23/18 SEED POTATO CUTTER, uncertain timeframe Fluconazole 150 mg PO QD 08/17/18 SEED POTATO CUTTER, uncertain timeframe Vancomycin 10/20/1810/24 Ampicillin 10/20/18 10/20/18 Fluconazole 10/20/18 10/26/18 Oseltamivir 10/21/1810/30 Meropenem 10/20/1810/23 Bactrim 08/17/18 SEED POTATO CUTTER, uncertain timeframe Estimated Creatinine Clearance: 72.1 mL/min (based on SCr of 0.43 mg/dL). Cardenas Results 10/24 C diff: negative 10/23 CSF GS/cx: rare neutrophils, no organisms seen, NGTD; WBCs 23 (86% lymphocy christopher, 9% mono/histocytes, 3% neutrophils), RBCs 1, glucose 70, protein 70; HSV PC R negative 10/22 Blood cx: NG 10/20 LLE [...] Susceptible: ceftriaxone-dilut method 0.094, levofloxacin, penicillin e-dilut m ethod 0.064, trimethoprim, and vancomycin 09/19/18 L leg: [...] (NS) 100 mL IVPB (MB+) 2 g Intra venous Q8H* [START ON 11/06/2018] cefTRIAXone (ROCEPHIN) IVP [...] mg/day patch 1 patch 1 patch Transdermal QDAY(2 1) ofloxacin (FLOXIN) 0.3 % (ophthalmic for otic use) solution 4 drop 4 drop Both E ars TID potassium chloride oral solution 20 mEq [...] Meds:acetaminophen Q4H PRN, calcium gluconate IV PRN (On Ca ll from Rx) AND Ionized Calcium PRN AND Notify Physician Ongoing, fentaN YL citrate PF Q1H PRN, ipratropium/albuterol Q4H PRN, magnesium sulfate PRN AN D [CANCELED] Magnesium PRN AND Notify Physician Ongoing, oxyCODONE Q4H PRN , pancrelipase 20,000 Units/ sodium bicarbonate 650 mg(#) PRN (Customs Examiner from Rx), potassium chloride SR PRN OR potassium chloride PRN Physical Examination Vital Signs: Last Vital Signs: 24 Hour Ran ge BP: 130/100 (11/02 799) Temp: 37.2 C [...] process or potential for limb-threatening infection as we ll as concerns including but not limited to complexity of the patient's underlyi ng illnesses, the identification and sensitivities of the organisms being treate d, the potential for antimicrobial toxicities and drug-drug interactions, concer ns regarding immunologic function, and interplay of other issues. Meningitis, br ain abscess, lab and imaging review, summary of old records, intensive abx monit oring. * Shelby Collier, SEMAJ-DEPUTY FIRE MARSHAL - 11/01/2018 7:35 AM CDT Neuro Critical [...] with history of HTN, HLD, non-healing leg wound s, CAD s/p CABG in 07/2018 who presented to an OSH on 10/16 with shortness of yasmani th and chest pains and found to have a RUL pneumonia. She was intubated on 10/17 2 /2 worsening respiratory status and AMS. On 10/19, CTA with R temporal lobe intrap arenchymal air and surrounding edema. Transferred to [facility] for escalation of care . Hospital and ICU course: 10/19: Transferred from [facility]SH to [facility] 10/23: LP 10/26: DC amiodarone. Start spironolactone 12.5mg daily and lasix 20mg daily. Mamta gildardo flexiseal 10/29: trach placement 10/31: DC Ativan, increase risperidone to 1mg HS, add melatonin 3mg HS. CXR to ev al for complaints of SOA. DC central line. [...] borderline prolapse and regurg no vegetations, Mild T R JYOTSNA:There is a small echogenic mass on the coaptation line of the aortic valve - SBP goal: < 160 - MAP goal > 65 - holding SEED POTATO CUTTER lisinopril and Toprol - plan to resume low dose BB after PEG placement - continue SEED POTATO CUTTER atrovastatin and ASA - gentle diuresis with lasix Respiratory: Acute hypoxic and hypercapneic respiratory failure on mechanical ventilation S/p Trach placement 10/29 per ENT Chest Xray 10/31:Progressing mixed opacities most apparent in the left perihilar region and left midlung. Persistent cardiomegaly with vascular congestion and small bilater al pleural effusions. - Currently on PS 5/5 - SEED POTATO CUTTER budesonide - trach to be changed per [...] Electrolyte protocol in place Magnesium goal >2.0, i-John goal > 1.0, Potassium goal >4.0 mEq/L Prophylaxis Review: A)GI: [id number] B) Lines:Yes; Central Line; Indication: Frequent blood draws; Type: Inte rnal jugular- Remove today C) Urinary Catheter:No D) Antibiotic Usage:Yes; Infection present or suspected: Lung; Pneumonia E) VTE:Pharmacological prophylaxis; SQ Heparinand Mechanical prophylaxis; Sequential compression device F) Isolation:Droplet G)Seizures:na I) Restraints: Patient assessed for need for restraints. Disposition/Family:Require ICU monitoring Primary service:NEICU Consults: ENT, ID, PT/OT, Dietary, Wound Team SUBJECTIVE Etelvina Alonso is a 58 y.o. female. Overnight Events: No new events noted. Patien t c/o chest pain with coughing. Nursing staff reports patient slept better last night. OBJECTIVE Vital Signs: Last Filed Vital Signs: 24 Hour Ra nge BP: 143/62 (11/01 699) Temp: 37.2 C (98.9 F) (11/01 0400) Pulse: 88 (11/01 0700) Respirations: 22 PER MINUTE (11/01 699) SpO2: [...] temperature 37.2 C (98.9 F), height 162.6 c m (64"), weight 51.5 kg (113 lb 8.6 oz), SpO2 98 %. Daily coma score: E: 4 - Opens eyes on own M: 5- Localizes to pain V: 1 - Makes no noise Neuro: Mental Status:Alert&Oriented x 3, remains with trach Cranial Nerves: - Pupil exam: Size: R - 3mm, L - 4mmReactivity: brisk - Corneal reflex: R- prese ntL- present - Grimace/facial movement: p resent - Cough: present Motor: Moves all extremities spontaneously and t o command RUE:Strength:4/5 RLE: Strength:4/5 LUE: Strength:4/5 LLE: [...] Other Diagnostic Procedures Review: Pertinent radiologic and diag nostic procedures reviewed. ZAC KoromaDEPUTY FIRE MARSHAL Date: 11/01/[phone] I spent 55 minutes managing the care of this patient. Mrs. Alonso is critically il l with: R temporal lobe abscess, encephalopathy, bacteremia, HCAP, HTN, CAD, res piratory failure. Cares included: detailed neurologic and systems exam, medicati on review, laboratory data review and interpretation, electrolyte management, re view of available imaging, DVT/PE prophylaxis review, diet review, activity revi ew, mechanical ventilation and sedation management, and coordination of care wit h consulted teams * Abbie Cleaning RN - [...] Injuries) 10/19/18 2330 Left Leg Surgical Incision (Act chema) 10/19/18 2330 Leg Wound Orientation: Left Wound Type: Surgical Incision Wound Type:: Wound Description (Comments): Dehiscence from prior surgery Wound Image 10/31/2018 2:30 PM Wound Base Assessment Moist;[place] 10/31/2018 2:30 PM Surrounding Skin Assessment Dry;Intact 10/31/2018 2:30 PM Wound Site Closure None 10/31/2018 2:30 PM Wound Drainage Amount Scant 10/31/2018 2:30 PM Wound Drainage Description Serosanguineous 10/31/2018 2:30 PM Wound Dressing Status Changed 10/31/2018 2:30 PM Wound Dressing and / or Treatment Iodoform Packing Strips 08/17";Foam (Biatain) 2:30 PM Wound Length (cm) 0.6 [...] with saline and gauze then dressed with packin g strip and foam. Pt's RN notified of visit and change in wound care recs. See bridgette manzo. RECOMMEND: - Discontinue Santyl to RLE and to superior and inferior aspects of LLE incision line. Left medial thigh (incision at level of knee) - - Clean with saline and gauze. - Use wooden end of cotton-tipped applicator to loosely pack wound with 1/4" wid th Iodiform gauze. Please note tunneling present and fill appropriately. - Cover with Biatain Silicone foam dressing. - Bedside RN to change packing daily; change foam dressing q48 hrs. Primary team is responsible for placing wound care orders. Bedside RN is respons ible for dressing changes. Will continue to follow. Abbie Cleaning RN, BSN, CWON Wound/Ostomy Nursing Consult Service Office: [phone] Pager: [phone] Wound/Ostomy Team Pager (After Hours/Weekends): [phone] * Judy Santoro MD - 10/31/2018 11:53 [...] fully evaluated, and discussed patient with the Neuro-EN T ICU team. The patient is critically ill after transfer from OSH 10/19 with R temporal lobe i ntraparenchymal air and surrounding edema concerning for developing abscess. 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 and B/L LE saphenous graft site in fections HTN HLD COPD Tobaccoism Acute on chronic anemia I spent 40 minutes (excluding time spent performing or supervising any procedu res) providing and personally directing critical care services including -review of serial neurologic, hemodynamic, respiratory, telemetry, laboratory an d imaging data -management of fluids/electrolytes, antibiotics, vasoactive medications, gas exc hange/mechanical ventilation, sepsis protocol, ICU prophylaxis and ICU core me asures -pain/sedation/delirium mgt -medication review and management -organization and coordination of care with patient (or surrogate), ICU team and consulting services. -directing the formulation of the overall plan of care outlined below. 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 Cont SBTs - tolerated most of yeste rday but had to be placed back on vent early evening for tachypnea, increased WO B and panic. ABG at that time with acceptable oxygenation altho mild respirator y acidosis also noted. Cont SBTs today as tolerated. Suspect acute delirium/sundowning may also be playing a role as pt became worse with ativan. Low dose risperdal also administered but uncertain effect as [facility] staff restarted precedex (inadvertently left on OCT) before giving antipsycho tic enough time. Have taken precedex and ativan off OCT. Ordered 1mg risperdal and melatonin for tonight. Will see how she does. Likely to need PEG - will discuss with pt's today. Remainder of plan per VEGETABLE HARVEST WORKER's note. Dispo: This patient is critically ill [...] (NS) 100 mL IVPB (MB+) 2 g Intra venous Q8H* [START ON 11/06/2018] cefTRIAXone (ROCEPHIN) IVP [...] mg/day patch 1 patch 1 patch Transdermal QDAY(2 1) ofloxacin (FLOXIN) 0.3 % (ophthalmic for otic use) solution 4 drop 4 drop Both E ars TID potassium chloride oral solution 20 mEq [...] Meds:acetaminophen Q4H PRN, calcium gluconate IV PRN (On Ca ll from Rx) AND Ionized Calcium PRN AND Notify Physician Ongoing, fentaN YL citrate PF Q1H PRN, ipratropium/albuterol Q4H PRN, magnesium sulfate PRN AN D [CANCELED] Magnesium PRN AND Notify Physician Ongoing, oxyCODONE Q4H PRN , pancrelipase 20,000 Units/ sodium bicarbonate 650 mg(#) PRN (Customs Examiner from Rx), potassium chloride SR PRN OR potassium chloride PRN Vital Signs: Last Filed Vital Signs: 24 Hour Ra nge BP: 150/76 (10/31 1099) Temp: 37.2 C (98.9 F) (10/31 0400) Pulse: 101 (10/31 1100) Respirations: 22 PER MINUTE (10/31 1100) SpO2: 100 % (10/31 1099) O2 Delivery: [...] radiology reviewed. Julia Santoro MD 10/31/2018 Pager: [phone] * Elenita Butler, OT - 10/31/2018 10:05 AM CDT OCCUPATIONAL THERAPY PROGRESS NOTE Patient Name: Etelvina Alonso Room/Bed: [place] [address] Admitting Diagnosis: altered mental status Mobility Progressive Mobility Level: Stand Level of Assistance: Assist X2 Assistive Device: Hand Held Time Tolerated: 11-30 minutes Activity Limited By: Lines / Medical Devices;Patient request to stop;Dizziness;F atigue Subjective Pertinent Dx per Physician: HTN, HLD, no nhealing leg wounds, CAD s/p CABG in in [place] who presented to an OSH on 10/16 with shortness of breath and melquiades st pains and found to have a RUL pneumonia. She was intubated on 10/17 2 worseni ng respiratory status and AMS. Workup showed cerebritis, tegmen dehisence, encep halocele, possible temporal lobe abscess. Sternal nonunion, 2 loosened sternal w ires, nonop per CTS. s/p trach, B myringotomy and tube placement, R mastoidectom y 10/29 Precautions: Falls;NPO Pain / Complaints: Patient has no c/o pain Objective Psychosocial Status: Willing and Cooperative to Participate Persons Present: Physical Therapist Vision Current Vision: Wears Glasses All of the Time ADL's Comment: Total assist for all at this time. Minimal assist X2 for bed mobility, standing. Maximum assist to take sidesteps toward edge of bed. Pt declined to tr anfser into chair this date. Returned to bed and pt stayed in long-sitting for R N to suction as pt had coughed considerable sputum. Pt then assisted to supine. Bed alarm set and call light in reach. Activity Tolerance Endurance: 3/5 Tolerates 25-30 Minutes Exercise w/Multiple Rests Sitting Balance: 2+/5 Supports Self w/ 1 UE Ventilator settings Ventilator Mode FiO2 (%) PEEP Pressure Support SpO2 (%) Respiratory Rate (RR) Lo cation of Endotracheal tube (ETT) at the gums CPAP 40 5 5 Pre Activity:99 During Activity:98 Post Activity:99 Pre Activity:27 During Activity: up to 37 with cough, mostly 31-33 Post Activity:31 trach Cognition Cognition Comment: mild motor planning deficit vs anxiety or combination. Some d ifficulty advancing LLE with taking sidesteps and with figuring out optimum posi tion for LLE for leverage to scoot up [...] Next Visit: bed mobility, sitting balance/sitting tolerance, groomin g at edge of bed, transfer to chair ADL Goals Patient Will Perform Grooming: w/ Minimum Assist;in Chair Patient Will Perform LE Dressing: w/ Minimum Assist Other ADL Goal 1: Pt to sit edge of bed with minimal assist X3 minutes with stab le vitals(MET) Functional Transfer Goals Pt Will Perform [...] On 10/19, CTA with R temporal lobe intrapar enchymal air and surrounding edema. Transferred to [facility] for escalation of care. Flail sternum and pna contributed to difficulty weaning vent. Repeat MRI showed right inferior temporal cerebritis that has coalesced into an abscess. Bilateral myringotomy and tube, Mastoidectomy, and Tracheostomy on 10/29. Mental / Cognitive Status: Alert;Cooperative;Follows Commands Persons Present: Occupational Therapist(Simultaneous filing. User may not have s een previous data.) Pain: Patient has no complaint of pain Ambulation Assist: Independent Mobility in Community without Device Home Situation: Lives with Family Ventilator settings Ventilator Mode FiO2 (%) PEEP Pressure Support SpO2 (%) Respiratory Rate (RR) Lo cation of Endotracheal tube (ETT) at the gums CPAP 40% 5 5 Pre Activity:99 During [...] Supine: Minimal Assist;x2 People;Assist with B LE;Assist wi th Trunk;Bed Flat;No Rail Comments: Patient tolerated sitting edge of bed with standby assist of first per son and second person for ventilator management. Agreeable to standing trial thi s date. RR as high as 37 but this improved with cues for slow, deep breathing. Transfer Type: Sit to Stand Transfer: Assistance Level: To/From;Bed;Moderate Assist;of 1st person;Standby As sist;of 2nd person(second person for ventilator management. ) Transfer: Assistive Device: Hand Hold Assist Transfers: Type Of Assistance: For Balance;For Strength Deficit;For Safety Consi derations End Of Activity Status: In Bed;Nursing Notified;Instructed Patient to Request As sist with Mobility;Instructed Patient to Use Call Light(bed alarm on) Comments: Patienttolerated standing with moderate assist initially then progress ed to minimal assist to maintain standing. L knee buckled initially but stable f or the rest of treatment. Difficulty advancing l LE for side steps so required m anual assist on l to take side steps to head to bed. Able to take steps with R L E. Declined up to chair at this time. BALANCE: Balance Sitting Balance: Static Sitting Balance;No UE Support;1 UE Support;Standby Baron t(few periods of minimal assist ) ACTIVITY/EXERCISE: Activity [...] Topics: Plan/Goals of PT Interventions;Importance of Increasing Activity;Recomme nd Continued Therapy ASSESSMENT/PROGRESS: Assessment/Progress Impaired Mobility Due To: Decreased Activity Tolerance;Medical Status Limitation Assessment/Progress: Should Improve w/ Continued PT AM-PAC 6 Clicks Basic Mobility Inpatient Turning from your back to your side while in a flat bed without using bed rails: A Little Moving from lying on your back to sitting on the side of a flatbed without using bedrails : Total Moving to and from a bed to a chair (including a wheelchair): Total Standing up from a chair using your arms (e.g. wheelchair, or bedside chair): To madalyn To walk in hospital room: Total Climbing [...] on standing at edge of bed. Trial trans shruthi to chair next session. RECOMMENDATIONS: PT Discharge [...] vein harvest, both tracking deep, L with purulen t drainage Pneumocephalus with surrounding edema on CTA head 10/19/18 at OSH, cerebritis, pos sible developing abscess in basal right temporal lobe on MRI head 10/20/18 Influenza A with possible HCAP Acute hypoxic/hypercarbic respiratory failure, s/p tracheostomy 10/29/18 S/p mastoidectomy on the right, bilateral myringotomy w/tympanostomy tube placem ent 10/29/18 -Past concern for biliateral LE wound infection as below -10/16 presented to [facility] with a few days of fever, cough -10/16/18: BC x 2 Strep Pneumo R- Clindamycin and erythromcyin S: ceftriaxone (MARCY 0.094), PCN (MARCY 0.064), levo, TMP/S, vanc. Rapid Flu Ag negative. MRSA nasal screen negative. 10/17/18: Sputum culture: Yeast and normal chelsey -Rapid mental status deterioration, intubated -CTA head 10/19/18 at OSH, small area of intraparenchymal air above the mastoid ai r cells and some edema around that area, with concern for possible infection. Pt was transferred to for further management -10/19: CXR patchy mixed alveolar and interstitial opacities -10/20: Tracheal aspirate: < 10 PMN, < 10 squam, no orgs. Moderate growth no significant chelsey -10/20: LLE swab: Pseudomonas aeruginosa (R - meropenem, ceftazidime, pip/tazo; S - cefepime, tobramycin, gentamicin, ceftolozane/tazobactam and ceftazidime/aviba ctam) -10/20: MRI head w/wo: Ovoid focus of diffusion restriction and partial rim enhanc ement in the basal right temporal lobe overlying the tegmen suggestive of focal cerebritis and developing abscess. Dependent diffusion restricting material wi thin the lateral ventricles suspicious for ventriculitis. Thin complex left po sterolateral convexity subdural fluid collection with diffusion restriction sugg estive of thin subdural empyema. -10/23: JYOTSNA: There [...] mass on the coaptation line of the aor tic valve. Appears to likely be associated with the left coronary cusp. A vegeta tion cannot be ruled out. 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 No stenosis. No regurgitation. Concern for bilateral LE wound infection, [facility] Bilateral vein harvest sites on lower extremities from CABG in [facility] jena, 07/2018 Multiple cultures in [facility], [place]. 09/07/18- Culture from R leg incision - [...] Mid To Distal Anteroapical Severe Hypokinesis To Akine sis, anterior mitral valve prolapse, moderate posterior lateral jet MV regurg HTN Depression Possible overdose prior to 10/16 admission -gabapentin, APAP/caffeine/butalbital H/o previous LE rash that improved after CABG Recommendations: -Continue cefepime given her LLE wound growing Pseudomonas that shows resistance to meropenem. 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 Will tentatively plan for 2 weeks (from 10/23) of cefepime to treat both the LE wound infections and Strep pneumo bacter emia and suspected HARDWARE ENGINEER abscess. Tentative last day of cefepime would be 11/05. -After cefepime she could be transitioned to ceftriaxone 2 g IV BID for meningit is. This would continue until at least 11/12 (4 weeks from 10/16). -Monitor for abx side effects -If on DC pt transfers to [facility], their ID physicians will take over ID care. Shan Walker DO Infectious Diseases Fellow Pager # [phone] Discussed with attending on service, Dr. Sepulveda I have seen, personally evaluated, and discussed the patient's care with Dr. Maria mahmood, Infectious Diseases Fellow. I agree with the subjective notations, object chema findings and agree with the plan of care as documented in this note with anil ts made by me as necessary. Benny Sepulveda MD Driver License Reviewing Officer Division of Infectious Diseases Interval History Etelvina Alonso is a 58 y.o. female with a PMH significant for CABG (07/2018) who p resented to [facility] in [facility] on 10/16/18 after noting worsening cough and sternal pain from recent sternotomy and non-healing LE graft sites. Transfe rred to [facility] on 10/19/18 for right temporal lobe intraparenchymal air and edema se en on CTA. Seen this AM lying in bed on vent via trach. Denied any subjective fevers or ch ills, sweats, n/v, diarrhea, or rashes. Has been having issues with anxiety, bu t appeared more calm this AM. Afebrile WBC 11.1 Cr 0.43 ROS As mentioned in 'Interval History' otherwise 10-point ROS negative Antimicrobial Start date End date Cefepime 10/16/18-10/18/18, 10/23 active Ceftriaxone 10/18/18 10/20/18 Cefedinir 09/23/18 SEED POTATO CUTTER, uncertain timeframe Doxycycline 100 mg PO BID 09/06/18 SEED POTATO CUTTER, uncertain timeframe [id number] mg PO BID 08/23/18 SEED POTATO CUTTER, uncertain timeframe Fluconazole 150 mg PO QD 08/17/18 SEED POTATO CUTTER, uncertain timeframe Vancomycin 10/20/1810/24 Ampicillin 10/20/18 10/20/18 Fluconazole 10/20/18 10/26/18 Oseltamivir 10/21/1810/30 Meropenem 10/20/1810/23 Bactrim 08/17/18 SEED POTATO CUTTER, uncertain timeframe Estimated Creatinine Clearance: 72.1 mL/min (based on SCr of 0.43 mg/dL). Cardenas Results 10/24 C diff: negative 10/23 CSF GS/cx: rare neutrophils, no organisms seen, NGTD; WBCs 23 (86% lymphocy christopher, 9% mono/histocytes, 3% neutrophils), RBCs 1, glucose 70, protein 70; HSV PC R negative 10/22 Blood cx: NG 10/20 LLE [...] Susceptible: ceftriaxone-dilut method 0.094, levofloxacin, penicillin e-dilut m ethod 0.064, trimethoprim, and vancomycin 09/19/18 L leg: [...] (NS) 100 mL IVPB (MB+) 2 g Intra venous Q8H* [START ON 11/06/2018] cefTRIAXone (ROCEPHIN) IVP [...] mg/day patch 1 patch 1 patch Transdermal QDAY(2 1) ofloxacin (FLOXIN) 0.3 % (ophthalmic for otic use) solution 4 drop 4 drop Both E ars TID potassium chloride oral solution 20 mEq [...] Meds:acetaminophen Q4H PRN, calcium gluconate IV PRN (On Ca ll from Rx) AND Ionized Calcium PRN AND Notify Physician Ongoing, fentaN YL citrate PF Q1H PRN, ipratropium/albuterol Q4H PRN, LORazepam Q6H PRN, magnesi um sulfate PRN AND [CANCELED] Magnesium PRN AND Notify Physician Ongoing , oxyCODONE Q4H PRN, pancrelipase 20,000 Units/ sodium bicarbonate 650 mg(#) PRN (Customs Examiner from Rx), potassium chloride SR PRN OR potassium chloride PRN Physical Examination Vital Signs: Last Vital Signs: 24 Hour Ran ge BP: 132/70 (10/31 0700) Temp: 37.2 C (98.9 F) (10/31 0400) Pulse: 86 (03/20 0700) Respirations: 28 PER MINUTE (10/31 699) SpO2: [...] NDT; PIV x2 Laboratory Hematology Recent Labs 10/29/188 10/30/18 0405 10/31/18 0250 WBC 11.7* 11.0 [...] process or potential for limb-threatening infection as we ll as concerns including but not limited to complexity of the patient's underlyi ng illnesses, the identification and sensitivities of the organisms being treate d, the potential for antimicrobial toxicities and drug-drug interactions, concer ns regarding immunologic function, and interplay of other issues. Meningitis, br ain abscess, lab and imaging review, summary of old records, intensive abx monit oring. * Mica Javed, VEGETABLE HARVEST WORKER - 10/31/2018 7:44 AM CDT Neuro Critical [...] with history of HTN, HLD, non-healing leg wound s, CAD s/p CABG in 07/2018 who presented to an OSH on 10/16 with shortness of yasmani th and chest pains and found to have a RUL pneumonia. She was intubated on 10/17 2 /2 worsening respiratory status and AMS. On 10/19, CTA with R temporal lobe intrap arenchymal air and surrounding edema. Transferred to [facility] for escalation of care . Hospital and ICU course: 10/19: Transferred [facility] OSH [facility] 10/26: DC amiodarone. Start spironolactone 12.5mg daily and lasix 20mg daily. Mamta gildardo flexiseal.. Plan for OR Tuesday 10/31: DC Ativan, increase risperidone to 1mg HS, add melatonin 3mg HS. CXR to ev al for complaints of SOA. DC central line. [...] goal: < 160 MAP goal > 65 SEED POTATO CUTTER lisinopril on hold SEED POTATO CUTTER atrovastatin and ASA Echo: 35-40%, mitral valve borderline prolapse and regurg no vegetations JYOTSNA:There is a small echogenic mass on the coaptation line of the aortic valve . Appears to likely be associated with the left coronary cusp. A vegetation Respiratory: RUL Pneumonia Date of Intubation: 10/17 Reason: Airway protection - Currently on PS 5/, had to be placed back on MMV overnight SEED POTATO CUTTER budesonide Complained of SOA overnight- will get [...] Electrolyte protocol in place Magnesium goal >2.0, i-John goal > 1.0, Potassium goal >4.0 mEq/L Prophylaxis Review: A)GI: [id number] B) Lines:Yes; Central Line; Indication: Frequent blood draws; Type: Inte rnal jugular- Remove today C) Urinary Catheter:No D) [...] Signs: Last Filed Vital Signs: 24 Hour Ra nge BP: 132/70 (10/31 699) Temp: 37.2 C [...] Therapy: Yes: Weaning readiness screen (RT Only):: Impl ement protocol Weaning readiness screen Met (RT Only):: [...] temperature 37.2 C (98.9 F), height 162.6 c m (64"), weight 51.5 kg (113 lb 8.6 oz), SpO2 100 %. Clarkson coma score: E: 4 - Opens eyes on own M: 5- Localizes to pain V: 1 - Makes no noise Neuro: Mental Status:Alert&Oriented x 3, remains intubated Cranial Nerves: - Pupil exam: Size: R - 3mm, L - 4mmReactivity: brisk - Corneal reflex: R- prese ntL- present - Grimace/facial movement: p resent - Cough: present Motor: Moves all extremities spontaneously and t o command RUE:Strength:4/5 RLE: Strength:4/5 LUE: Strength:4/5 LLE: [...] Other Diagnostic Procedures Review: Pertinent radiologic and diag nostic procedures reviewed. Mica Javed, SEMAJ Date: 10/31/2018 [id number] I spent 45 minutes managing the care of this patient. Mrs. Alonso is critically il l with: R temporal lobe intraparenchymal air and surrounding edema concerning fo r developing abscess - improved Strep pneumo bacteremia HCAP, influenza A+ Acute hypoxic and hypercapneic respiratory failure on mechanical ventilation CAD s/p CABG (07/2018) with sternal non-union and B/L LE saphenous graft site in fections HTN HLD COPD Tobaccoism Acute on chronic anemia Cares included: detailed neurologic and systems exam, medication review, laborat ory data review and interpretation, electrolyte management, review of available imaging, DVT/PE prophylaxis review, diet review, activity review, mechanical eddi tilation and sedation management, and coordination of care with consulted teams * Magali Patel, MARI - 10/30/2018 6:45 PM CDT 1600- NEICU notified of pt very anxious upon assessment. Pt stating, "I don't fe el like I can breathe." NEICU and RT at bedside. Pt HR 100-120. Orders to admini ster 0.5 mg Ativan. Ativan administered. Pt states breathing is easier and appea rs less anxious after administration. 1630- Pt stating she is beginning to feel more anxious due to "neck hurting" at trach site. Fentanyl 25 mcg and Oxy 10 mg administered. 1500- Pt pain and anxiety improved upon assessment and pt report. 1800- Pt increasingly anxious upon assessment. NEICU at bedside. Pt HR sustainin g 120's. Orders to administer 1 mg Ativan. Ativan administered. Pt still anxious post-Ativan administration. NEICU notified of pt's continued anxiety and 1 mg m ore Ativan administered at 1830. 1850- Pt still anxious. Pt denying pain. HR sustaining 130's. RR 30-40. NEICU no tified and states they will come see pt shortly. Orders to continue to monitor a nd assess. This RN at bedside. * Kelly Vitale RD - 10/30/2018 4:30 PM CDT CLINICAL NUTRITION Clinical Nutrition Follow-Up Summary NAME:Etelvina Alonso :1960 AG E: 58 y.o. ADMISSION DATE: 10/19/2018 DAYS ADMITTED: LOS: 11 days Nutrition Assessment of Patient: Malnutrition Assessment: Does not meet criteria Current Oral Intake: NPO Estimated Calorie Needs: 1585(30 kcal/kg @ 52.8 kg) Estimated Protein Needs: 80(1.5g/kg @ 52.8kg) Oral Diet Order: NPO Intake (calories) Daily Average : 1498 kilocalories(3 [address] EN [address] ; 95% mi n goal; held 10/29 for trach) Intake (protein) Daily Average : 68 grams(3 day EN ave ; 85% min goal; he ld 10/29 for trach) Current EN Order: Isosource 1.5 @ 50 ml/hr + 150 ml water bolus Q6hr. At goal w ould provide 1800 kcal, 82 gm protein and 912 ml free water from EN at goal with additional 600 ml water from ordered boluses. Comments: 58 yo female with hx of COPD, HTN, HLD, CAD s/p CABG in 07/2018 with non- healin g leg wounds who presented to an OSH on 10/16 with shortness of breath and chest p ains and was found to have a RUL pneumonia. She was intubated on 10/17 secondary t o worsening respiratory status and AMS. On 10/19, CTA showed R temporal lobe intra parenchymal air and surrounding edema. Transferred to [facility] for escalation of car e. Pt remains intubated and sedated on Precedex now via trach placed 10/29. NGT in place. EN of Isosource 1.5 back to 50 ml/hr. 3-day EN ave 95% m in kcal goal and 85% min protein goal. Obtained subjective data from pt 10/29 pr ior to OR. Pt notes regular diet SEED POTATO CUTTER with good intake and stable wt. New small stage III pressure injury to sacrum. On vitamin C and zinc supplementation. Recommendation: Recommend Isosource 1.5 @ goal of 45 ml/hr and add 1 pack Prosource per day to provide 1680 kcal, 88 gm protein and 820 ml free water from EN at goal. Addit ional fluids per primary team. Intervention / Plan: updated kcal/protein goals with stage III pressure injury Will monitor EN tolerance/provision and wt trends, GI symptoms, labs, meds, I/O s Obtained subjective information as able Nutrition Diagnosis: [...] vein harvest, both tracking deep, L with purulen t drainage Pneumocephalus with surrounding edema on CTA head 10/19/18 at OSH, cerebritis, pos sible developing abscess in basal right temporal lobe on MRI head 10/20/18 Influenza A with possible HCAP Acute hypoxic/hypercarbic respiratory failure, s/p tracheostomy 10/29/18 S/p mastoidectomy on the right, bilateral myringotomy w/tympanostomy tube placem ent 10/29/18 -Past concern for biliateral LE wound infection as below -10/16 presented to [facility] with a few days of fever, cough -10/16/18: BC x 2 Strep Pneumo R- Clindamycin and erythromcyin S: ceftriaxone (MARCY 0.094), PCN (MARCY 0.064), levo, TMP/S, vanc. Rapid Flu Ag negative. MRSA nasal screen negative. 10/17/18: Sputum culture: Yeast and normal chelsey -Rapid mental status deterioration, intubated -CTA head 10/19/18 at OSH, small area of intraparenchymal air above the mastoid ai r cells and some edema around that area, with concern for possible infection. Pt was transferred to for further management -10/19: CXR patchy mixed alveolar and interstitial opacities -10/20: Tracheal aspirate: < 10 PMN, < 10 squam, no orgs. Moderate growth no significant chelsey -10/20: LLE swab: Pseudomonas aeruginosa (R - meropenem, ceftazidime, pip/tazo; S - cefepime, tobramycin, gentamicin, ceftolozane/tazobactam and ceftazidime/aviba ctam) -10/20: MRI head w/wo: Ovoid focus of diffusion restriction and partial rim enhanc ement in the basal right temporal lobe overlying the tegmen suggestive of focal cerebritis and developing abscess. Dependent diffusion restricting material wi thin the lateral ventricles suspicious for ventriculitis. Thin complex left po sterolateral convexity subdural fluid collection with diffusion restriction sugg estive of thin subdural empyema. -10/23: JYOTSNA: There [...] mass on the coaptation line of the aor tic valve. Appears to likely be associated with the left coronary cusp. A vegeta tion cannot be ruled out. 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 No stenosis. No regurgitation. Concern for bilateral LE wound infection, [facility] Bilateral vein harvest sites on lower extremities from CABG in [facility] jena, 07/2018 Multiple cultures in [facility], [place]. 09/07/18- Culture from R leg incision - [...] Mid To Distal Anteroapical Severe Hypokinesis To Akine sis, anterior mitral valve prolapse, moderate posterior lateral jet MV regurg HTN Depression Possible overdose prior to 10/16 admission -gabapentin, APAP/caffeine/butalbital H/o previous LE rash that improved after CABG Recommendations: -Continue cefepime given her LLE wound growing Pseudomonas that shows resistance to meropenem. 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 Will tentatively plan for 2 weeks (from 10/23) of cefepime to treat both the LE wound infections and Strep pneumo bacter emia and suspected HARDWARE ENGINEER abscess. Tentative last day of cefepime would be 11/05. -After cefepime she could be transitioned to ceftriaxone 2 g IV BID for meningit is. This would continue until at least 11/12 (4 weeks from 10/16). -Monitor for abx side effects -Continue oseltamivir for influenza x 10 days total, through 10/30 (today) -If on DC pt transfers to [facility], their ID physicians will take over ID care. Shan Walker DO Infectious Diseases Fellow Pager # [phone] Discussed with attending on service, Dr. Sepulveda I have seen, personally evaluated, and discussed the patient's care with Dr. Maria mahmood, Infectious Diseases Fellow. I agree with the subjective notations, object chema findings and agree with the plan of care as documented in this note with anil ts made by me as necessary. Benny Sepulveda MD Driver License Reviewing Officer Division of Infectious Diseases Interval History Etelvina Alonso is a 58 y.o. female with a PMH significant for CABG (07/2018) who p resented to [facility] in [facility] on 10/16/18 after noting worsening cough and sternal pain from recent sternotomy and non-healing LE graft sites. Transfe rred to [facility] on 10/19/18 for right temporal lobe intraparenchymal air and edema se en on CTA. Seen this AM lying in bed. When asked yes and no questions, she denied any subj ective fevers or chills, n/v, diarrhea, abdominal pain, or rashes. She stated s he had a headache, which has been unchanged for approximately a month. She pato ed any vision changes or numbness or tingling. Afebrile WBC 11.7 Cr 0.40 ROS As mentioned in 'Interval History' otherwise 10-point ROS negative Antimicrobial Start date End date Cefepime 10/16/18-10/18/18, 10/23 active Ceftriaxone 10/18/18 10/20/18 Cefedinir 09/23/18 SEED POTATO CUTTER, uncertain timeframe Doxycycline 100 mg PO BID 09/06/18 SEED POTATO CUTTER, uncertain timeframe [id number] mg PO BID 08/23/18 SEED POTATO CUTTER, uncertain timeframe Fluconazole 150 mg PO QD 08/17/18 SEED POTATO CUTTER, uncertain timeframe Vancomycin 10/20/1810/24 Ampicillin 10/20/18 10/20/18 Fluconazole 10/20/18 10/26/18 Oseltamivir 10/21/18 active Meropenem 10/20/1810/23 Bactrim 08/17/18 SEED POTATO CUTTER, uncertain timeframe Estimated Creatinine Clearance: 72.1 mL/min (based on SCr of 0.44 mg/dL). Cardenas Results 10/24 C diff: negative 10/23 CSF GS/cx: rare neutrophils, no organisms seen, NGTD; WBCs 23 (86% lymphocy christopher, 9% mono/histocytes, 3% neutrophils), RBCs 1, glucose [...] Susceptible: ceftriaxone-dilut method 0.094, levofloxacin, penicillin e-dilut m ethod 0.064, trimethoprim, and vancomycin 09/19/18 L leg: [...] (NS) 100 mL IVPB (MB+) 2 g Intra venous Q8H* [START ON 11/06/2018] cefTRIAXone (ROCEPHIN) IVP [...] mg/day patch 1 patch 1 patch Transdermal QDAY(2 1) ofloxacin (FLOXIN) 0.3 % (ophthalmic for otic use) solution 4 drop 4 drop Both E ars TID oseltamivir (TAMIFLU) oral suspension 75 mg [...] mcg/NS 100 ml IV drip Stopped (10/30/18 1201) PRN and Respiratory Meds:acetaminophen Q4H PRN, calcium gluconate IV PRN (On Ca ll from Rx) AND Ionized Calcium PRN AND Notify Physician Ongoing, fentaN YL citrate PF Q1H PRN, ipratropium/albuterol Q4H PRN, magnesium sulfate PRN AN D [CANCELED] Magnesium PRN AND Notify Physician Ongoing, oxyCODONE Q4H PRN , pancrelipase 20,000 Units/ sodium bicarbonate 650 mg(#) PRN (Customs Examiner from Rx), potassium chloride SR PRN OR potassium chloride PRN Physical Examination Vital Signs: Last Vital Signs: 24 Hour Ran ge BP: 95/62 (10/30 1400) Temp: 37.2 C [...] process or potential for limb-threatening infection as we ll as concerns including but not limited to complexity of the patient's underlyi ng illnesses, the identification and sensitivities of the organisms being treate d, the potential for antimicrobial toxicities and drug-drug interactions, concer ns regarding immunologic function, and interplay of other issues. Meningitis, br ain abscess, lab and imaging review, summary of old records, intensive abx monit oring. * Magali Patel RN - 10/30/2018 1:00 [...] RE-ASSESSMENT NOTE Patient Name: Etelvina Alonso Room/Bed: [place] [address] Admitting Diagnosis: altered mental status Mobility Progressive Mobility Level: Sit on edge of bed Distance Walked (feet): 0 ft Level of Assistance: Assist X2 Assistive Device: Hand Held Time Tolerated: 11-30 minutes Activity Limited By: Lines / Medical Devices;Fatigue(anxiety) Subjective Pertinent Dx per Physician: HTN, HLD, no nhealing leg wounds, CAD s/p CABG in in [place] who presented to an OSH on 10/16 with shortness of breath and melquiades st pains and found to have a RUL pneumonia. She was intubated on 10/17 2/ worseni ng respiratory status and AMS. Workup showed cerebritis, tegmen dehisence, encep halocele, possible temporal lobe abscess. Sternal nonunion, 2 loosened sternal w ires, nonop per CTS. s/p trach, B myringotomy and tube placement, R mastoidectom y 10/29 Precautions: Falls;NPO Pain / Complaints: Patient [...] minimal assist X2 for bed mobility. Minimal as sist X1 for static sitting balance, second person for lines. Pt declined groomin g at edge of bed but able to do LE AROM. Anxious at times and needing cues to re lax and slow her breathing. Activity Tolerance Endurance: 10/16 Tolerates 25-30 Minutes Exercise w/Multiple Rests Sitting Balance: 2+/5 Supports Self w/ 1 UE\\ Ventilator settings Ventilator Mode FiO2 (%) PEEP Pressure Support SpO2 (%) Respiratory Rate (RR) Lo cation of Endotracheal tube (ETT) at the gums [...] Assessment Assessment: Decreased ADL Status;Decreased Endurance;Decreased Self-Care Trans;D ecreased High-Level ADLs Prognosis: Good;w/Cont OT s/p Acute [...] Next Visit: bed mobility, sitting balance/sitting tolerance, groomin g at edge of bed ADL Goals Patient Will Perform Grooming: w/ Minimum Assist;in Chair Patient Will Perform LE Dressing: w/ Minimum Assist Other ADL Goal 1: Pt to sit edge of bed with minimal assist X3 minutes with stab le vitals(MET) Functional Transfer Goals Pt Will Perform [...] On 10/19, CTA with R temporal lobe intrapar enchymal air and surrounding edema. Transferred to [facility] for escalation of care. Flail sternum and pna contributed to difficulty weaning vent. Repeat MRI showed right inferior temporal cerebritis that has coalesced into an abscess. Bilateral myringotomy and tube, Mastoidectomy, and Tracheostomy on 10/29. Mental / Cognitive Status: Alert;Cooperative;Follows Commands Persons [...] Supine: Minimal Assist;x2 People;Assist with B LE;Assist wi th Trunk;Bed Flat;No Rail End Of Activity Status: In Bed;Nursing Notified;Instructed Patient to Request As sist with Mobility;Instructed Patient to Use Call Light(bed alarm on) BALANCE: Balance Sitting Balance: Static Sitting Balance;No UE Support;1 UE Support;Minimal Baron t EDUCATION: Education Persons Educated: Patient Patient Barriers To Learning: Anxiety Interventions: Repetition of Instructions Teaching Methods: Verbal Instruction Patient Response: More Instruction Required Topics: Plan/Goals of PT Interventions;Importance of Increasing Activity;Recomme nd Continued Therapy ASSESSMENT/PROGRESS: Assessment/Progress Impaired Mobility Due To: Decreased Activity Tolerance;Medical Status Limitation Assessment/Progress: Should Improve w/ Continued PT AM-PAC 6 Clicks Basic Mobility Inpatient Turning from your back to your side while in a flat bed without using bed rails: A Little Moving from lying on your back to sitting on the side of a flatbed without using bedrails : Total Moving to and from a bed to a chair (including a wheelchair): Total Standing up from a chair using your arms (e.g. wheelchair, or bedside chair): To madalyn To walk in hospital room: Total Climbing [...] Recommendations PT Discharge Recommendations: Inpatient Setting Therapist: Oilmpia Broderick, PT Date: 10/30/2018 T * Abbie Cleaning RN - 10/30/2018 8:15 [...] to be device related, please select the dev ice:: Wound Image 10/30/2018 8:14 AM Wound Dressing Status None 10/30/2018 8:14 AM Wound Dressing and / or Treatment Criticaid Barrier Cream 10/30/2018 8:14 AM Wound Drainage Amount None 10/30/2018 8:14 AM Wound Base Assessment Moist;Pale;Yellow 10/30/2018 8:14 AM Surrounding Skin Assessment Dry;Intact;Sugarcreek 10/30/2018 8:14 AM Wound Status (Wound Team [...] and PRN to protect skin from moisture relate d to urine/stool. - Avoid briefs if possible and use only one disposable pad at at time underneath pt to prevent heat and moisture trapping against skin. - Implement q2 hr turning schedule using foam wedge for support. - HOB less than or equal to 30 degrees, unless contraindicated, to prevent shear ing at coccyx/sacrum. Abbie Cleaning RN, BSN, CWON Wound/Ostomy Nursing Consult Service Office: [phone] Pager: [phone] Wound/Ostomy Team Pager (After Hours/Weekends): [phone] Will continue to follow. * Shan Walker DO - 10/30/2018 6:47 AM CDT Infectious Disease Progress Note Name: Etelvina Alonso Today's Date: 10/30/2018 Admission Date: 10/19/2018 Consulted for Cerebritis suspected Type of consult: Co-management w/signed orders Assessment: Strep pneumo bacteremia Bilateral LE wounds due to CABG vein harvest, both tracking deep, L with purulen t drainage Pneumocephalus with surrounding edema on CTA head 10/19/18 at OSH, cerebritis, pos sible developing abscess in basal right temporal lobe on MRI head 10/20/18 Influenza A with possible HCAP Acute hypoxic/hypercarbic respiratory failure, s/p tracheostomy 10/29/18 S/p mastoidectomy on the right, bilateral myringotomy w/tympanostomy tube placem ent 10/29/18 -Past concern for biliateral LE wound infection as below -10/16 presented to [facility] with a few days of fever, cough -10/16/18: BC x 2 Strep Pneumo R- Clindamycin and erythromcyin S: ceftriaxone (MARCY 0.094), PCN (MARCY 0.064), levo, TMP/S, vanc. Rapid Flu Ag negative. MRSA nasal screen negative. 10/17/18: Sputum culture: Yeast and normal chelsey -Rapid mental status deterioration, intubated -CTA head 10/19/18 at OSH, small area of intraparenchymal air above the mastoid ai r cells and some edema around that area, with concern for possible infection. Pt was transferred to for further management -10/19: CXR patchy mixed alveolar and interstitial opacities -10/20: Tracheal aspirate: < 10 PMN, < 10 squam, no orgs. Moderate growth no significant chelsey -10/20: LLE swab: Pseudomonas aeruginosa (R - meropenem, ceftazidime, pip/tazo; S - cefepime, tobramycin, gentamicin, ceftolozane/tazobactam and ceftazidime/aviba ctam) -10/20: MRI head w/wo: Ovoid focus of diffusion restriction and partial rim enhanc ement in the basal right temporal lobe overlying the tegmen suggestive of focal cerebritis and developing abscess. Dependent diffusion restricting material wi thin the lateral ventricles suspicious for ventriculitis. Thin complex left po sterolateral convexity subdural fluid collection with diffusion restriction sugg estive of thin subdural empyema. -10/23: JYOTSNA: There [...] mass on the coaptation line of the aor tic valve. Appears to likely be associated with the left coronary cusp. A vegeta tion cannot be ruled out. 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 No stenosis. No regurgitation. Concern for bilateral LE wound infection, [facility] Bilateral vein harvest sites on lower extremities from CABG in [facility] j[place], 07/2018 Multiple cultures in [facility], [place]. 09/07/18- Culture from R leg incision - [...] Mid To Distal Anteroapical Severe Hypokinesis To Akine sis, anterior mitral valve prolapse, moderate posterior lateral jet MV regurg HTN Depression Possible overdose prior to 10/16 admission -gabapentin, APAP/caffeine/butalbital H/o previous LE rash that improved after CABG Recommendations: -Continue cefepime given her LLE wound growing Pseudomonas that shows resistance to meropenem. 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 Will tentatively plan for 2 weeks (from 10/23) of cefepime to treat both the LE wound infections and Strep pneumo bacter emia and suspected HARDWARE ENGINEER abscess. Tentative last day of cefepime would be 11/05. -After cefepime she could be transitioned to ceftriaxone 2 g IV BID for meningit is. This would continue until at least 11/12 (4 weeks from 10/16). -Monitor for abx side effects -Continue oseltamivir for influenza x 10 days total, through 10/30 (today) Shan Walker DO Infectious Diseases Fellow Pager # [phone] Discussed with attending on service, Dr. Sepulveda Interval History Etelvina Alonso is a 58 y.o. female with a PMH significant for CABG (07/2018) who p resented to [facility] in [facility] on 10/16/18 after noting worsening cough and sternal pain from recent sternotomy and non-healing LE graft sites. Transfe rred to [facility] on 10/19/18 for right temporal lobe intraparenchymal air and edema se en on CTA. Seen this AM lying in bed. When asked yes and no questions, she denied any subj ective fevers or chills, n/v, diarrhea, abdominal pain, or rashes. She stated s he had a headache, which has been unchanged for approximately a month. She pato ed any vision changes or numbness or tingling. Afebrile WBC 11.7 Cr 0.40 ROS As mentioned in 'Interval History' otherwise 10-point ROS negative Antimicrobial Start date End date Cefepime 10/16/18-10/18/18, 10/23 active Ceftriaxone 10/18/18 10/20/18 Cefedinir 09/23/18 SEED POTATO CUTTER, uncertain timeframe Doxycycline 100 mg PO BID 09/06/18 SEED POTATO CUTTER, uncertain timeframe [id number] mg PO BID 08/23/18 SEED POTATO CUTTER, uncertain timeframe Fluconazole 150 mg PO QD 08/17/18 SEED POTATO CUTTER, uncertain timeframe Vancomycin 10/20/1810/24 Ampicillin 10/20/18 10/20/18 Fluconazole 10/20/18 10/26/18 Oseltamivir 10/21/18 active Meropenem 10/20/1810/23 Bactrim 08/17/18 SEED POTATO CUTTER, uncertain timeframe Estimated Creatinine Clearance: 72.1 mL/min (based on SCr of 0.44 mg/dL). Cardenas Results 10/24 C diff: negative 10/23 CSF GS/cx: rare neutrophils, no organisms seen, NGTD; WBCs 23 (86% lymphocy christopher, 9% mono/histocytes, 3% neutrophils), RBCs 1, glucose [...] Susceptible: ceftriaxone-dilut method 0.094, levofloxacin, penicillin e-dilut m ethod 0.064, trimethoprim, and vancomycin 09/19/18 L leg: [...] (NS) 100 mL IVPB (MB+) 2 g Intra venous Q8H* [START ON 11/06/2018] cefTRIAXone (ROCEPHIN) IVP [...] mg/day patch 1 patch 1 patch Transdermal QDAY(2 1) ofloxacin (FLOXIN) 0.3 % (ophthalmic for otic use) solution 4 drop 4 drop Both E ars TID oseltamivir (TAMIFLU) oral suspension 75 mg [...] 100 ml IV drip 1 mcg/kg/hr (10/30/18 0 358) PRN and Respiratory Meds:acetaminophen Q4H PRN, calcium gluconate IV PRN (On Ca ll from Rx) AND Ionized Calcium PRN AND Notify Physician Ongoing, fentaN YL citrate PF Q1H PRN, ipratropium/albuterol Q4H PRN, magnesium sulfate PRN AN D [CANCELED] Magnesium PRN AND Notify Physician Ongoing, oxyCODONE Q4H PRN , pancrelipase 20,000 Units/ sodium bicarbonate 650 mg(#) PRN (Customs Examiner from Rx), potassium chloride SR PRN OR potassium chloride PRN Physical Examination Vital Signs: Last Vital Signs: 24 Hour Ran ge BP: 90/59 (10/30 617) Temp: 37.2 C [...] with history of HTN, HLD, non-healing leg wound s, CAD s/p CABG in 07/2018 who presented to an OSH on 10/16 with shortness of yasmani th and chest pains and found to have a RUL pneumonia. She was intubated on 10/17 2 /2 worsening respiratory status and AMS. On 10/19, CTA with R temporal lobe intrap arenchymal air and surrounding edema. Transferred to [facility] for escalation of care . Hospital and ICU course: 10/19: Transferred [facility] OSH to [facility] 10/26: DC amiodarone. Start spironolactone 12.5mg daily and lasix 20mg daily. Mamta gildardo flexiseal.. Plan for OR Monday Neuro/ENT: Altered [...] MAP goal > 65 Continue spironolactone - SEED POTATO CUTTER lisinopril on hold will discuss starting tomorrow SEED POTATO CUTTER atrovastatin and ASA Echo today: 35-40%, mitral valve borderline prolapse and regurg no vegetations JYOTSNA:There is a small echogenic mass on the coaptation line of the aortic valve . Appears to likely be associated with the left coronary cusp. A vegetation Respiratory: RUL Pneumonia Date of Intubation: 10/17 Reason: Airway protection - continue to attempt daily weaning trials, has been failing due to tachypnea wh en placed on pressure support - will get trach with ENT today SEED POTATO CUTTER budesonide Influenza virus positive GI: Feeding: NPO, Isosource 1.5 @ 50 ml/hr with 250 ml water every 6 hours - decreas e free water to 150 ml every 6 [...] Electrolyte protocol in place Magnesium goal >2.0, i-John goal > 1.0, Potassium goal >4.0 mEq/L Prophylaxis Review: A)GI: G2Amesxyo B) Lines:Yes; Central Line; Indication: Frequent blood draws; Type: Inte rnal jugular C) Urinary Catheter:Yes; Retain salomon due [...] Signs: Last Filed Vital Signs: 24 Hour Ra nge BP: 90/59 (10/30 617) Temp: 37.2 C [...] Therapy: Yes: Weaning readiness screen (RT Only):: Impl ement protocol Weaning readiness screen Met (RT Only):: [...] (113 lb 8.6 oz), SpO2 100 %. Clarkson coma score: E: 4 - Opens eyes on own M: 5 - Localizes to pain V: 1 - Makes no noise Neuro: Mental Status: Alert&Oriented x 3, remains intubated Cranial Nerves: - Pupil exam: Size: R - 3mm, L - 4mm Reactiv ity: brisk - Corneal reflex: R - present [...] Other Diagnostic Procedures Review: Pertinent radiologic and diag nostic procedures reviewed. Pankaj Bunn MD Date: 10/30/[phone] Associated attestation - Judy Santoro MD - [...] from OSH 10/19 with R temporal lobe i ntraparenchymal air and surrounding edema concerning for developing abscess. Act chema hospital problems include: R temporal lobe intraparenchymal air and surrounding edema concerning for develo ping abscess - improved Strep pneumo bacteremia HCAP, influenza A+ Acute hypoxic and hypercapneic respiratory failure on mechanical ventilation CAD s/p CABG (07/2018) with sternal non-union and B/L LE saphenous graft site in fections HTN HLD COPD Tobaccoism Acute on chronic anemia I spent 45 minutes (excluding time spent performing or supervising any procedur es) providing and personally directing critical care services including -review of serial neurologic, hemodynamic, respiratory, telemetry, laboratory an d imaging data -management of fluids/electrolytes, antibiotics, vasoactive medications, gas exc hange/mechanical ventilation, sepsis protocol, ICU prophylaxis and ICU core jenny sures -pain/sedation/delirium mgt -medication review and management -organization [...] Vital Signs: Last Filed Vital Signs: 24 Ramiro r Range BP: 92/57 (10/30 0500) Temp: 37.2 [...] place with sutures, some bloody crusting around tra ch site but no active bleeding Respirations regular [...] recent pneumonia. She is admitted for altered men madalyn status and was found to have pneumocephalus and cerebritis on imaging work u p with concerns for right temporal lobe overlying the tegmen suggestive of focal cerebritis and developing abscess. She is now s/p R mastoidectomy, bilateral my ringotomy with tube placement, and tracheostomy on 10/[address] Burch -- Agree with IV abx per primary and ID -- CSF cultures with no growth -- Continue routine trach care, will take cuff down once patient no longer on ve ntilator -- Planning for trach change on 11/02. [...] or concerns. Pat David MD Otolaryngology Resident, PGY-7 * Olimpia Broderick, PT - 10/29/2018 2:24 PM CDT PHYSICAL THERAPY NOTE Patient was unavailable for physical therapy; pt in OR. Physical therapy will c ontinue to follow and provide intervention as indicated. Therapist: Olimpia Broderick, PT Date: 10/29/2018 T * Magali Patel RN - 10/29/2018 2:05 PM CDT Pt transported to OR with RT. Handoff given to FUNERAL ARRANGEMENT DIRECTOR. VSS. * Benny Sepulveda MD - 10/29/2018 8:25 AM CDT Infectious Disease Progress Note Name: Etelvina Alonso Today's Date: 10/29/2018 Admission Date: 10/19/2018 Consulted for Cerebritis suspected Type of consult: Co-management w/signed orders Assessment: Strep pneumo bacteremia Bilateral LE wounds due to CABG vein harvest, both tracking deep, L with purulen t drainage Pneumocephalus with surrounding edema on CTA head 10/19/18 at OSH, cerebritis, pos sible developing abscess in basal right temporal lobe on MRI head 10/20/18 Influenza A with possible HCAP Acute hypoxic/hypercarbic respiratory failure -Past concern for biliateral LE wound infection as below -10/16 presented to [facility] with a few days of fever, cough -10/16/18: BC x 2 Strep Pneumo R- Clindamycin and erythromcyin S: ceftriaxone (MARCY 0.094), PCN (MARCY 0.064), levo, TMP/S, vanc. Rapid Flu Ag negative. MRSA nasal screen negative. 10/17/18: Sputum culture: Yeast and normal chelsey -Rapid mental status deterioration, intubated -CTA head 10/19/18 at OSH, small area of intraparenchymal air above the mastoid ai r cells and some edema around that area, with concern for possible infection. Pt was transferred to for further management -10/19: CXR patchy mixed alveolar and interstitial opacities -10/20: Tracheal aspirate: < 10 PMN, < 10 squam, no orgs. Moderate growth no significant chelsey -10/20: LLE swab: Pseudomonas aeruginosa (R - meropenem, ceftazidime, pip/tazo; S - cefepime, tobramycin, gentamicin, ceftolozane/tazobactam and ceftazidime/aviba ctam) -10/20: MRI head w/wo: Ovoid focus of diffusion restriction and partial rim enhanc ement in the basal right temporal lobe overlying the tegmen suggestive of focal cerebritis and developing abscess. Dependent diffusion restricting material wi thin the lateral ventricles suspicious for ventriculitis. Thin complex left po sterolateral convexity subdural fluid collection with diffusion restriction sugg estive of thin subdural empyema. -10/23: JYOTSNA: There [...] mass on the coaptation line of the aor tic valve. Appears to likely be associated with the left coronary cusp. A vegeta tion cannot be ruled out. 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 No stenosis. No regurgitation. Concern for bilateral LE wound infection, [facility] Bilateral vein harvest sites on lower extremities from CABG in [facility] [place], 07/2018 Multiple cultures in [facility], [place]. 09/07/18- Culture from R leg incision - [...] Mid To Distal Anteroapical Severe Hypokinesis To Akine sis, anterior mitral valve prolapse, moderate posterior lateral jet MV regurg HTN Depression Possible overdose prior to 10/16 admission -gabapentin, APAP/caffeine/butalbital H/o previous LE rash that improved after CABG Recommendations: -Continue cefepime given her LLE wound growing Pseudomonas that shows resistance to meropenem. 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 Will tentatively plan for 2 weeks (from 10/23) of cefepime to treat both the LE wound infections and Strep pneumo bacter emia and suspected HARDWARE ENGINEER abscess. Tentative last day of cefepime would be 11/05. -After cefepime she could be transitioned to ceftriaxone 2 g IV BID for meningit is. This would continue until at least 11/12 (4 weeks from 10/16). -Monitor for abx side effects -Continue oseltamivir for influenza x 10 days total, through 10/30 - Note ENT plan for OR today (10/29/18) for possible bilateral myringotomy with t ube placement, right tympanoplasty and mastoidectomy, tracheostomy Shan Walker, Infectious Diseases Fellow Pager # [phone] Discussed with attending on service, Dr. Sepulveda I have seen, personally evaluated, and discussed the patient's care with Dr. Maria mahmood, Infectious Diseases Fellow. I agree with the subjective notations, object chema findings and agree with the plan of care as documented in this note with anil ts made by me as necessary. Benny Sepulveda MD Driver License Reviewing Officer Division of Infectious Diseases Interval History Etelvina Alonso is a 58 y.o. female with a PMH significant for CABG (07/2018) who p resented to [facility] in [facility] on 10/16/18 after noting worsening cough and sternal pain from recent sternotomy and non-healing LE graft sites. Transfe rred to [facility] on 10/19/18 for right temporal lobe intraparenchymal air and edema se en on CTA. Seen this AM on vent. She was awake and nodding appropriately to questions. Afebrile over the weekend, intubated V/AC, 22, 40%, 5 Dexmedetomidine WBC 11.7 Cr 0.40 I/O: 2055/0 [500 stool] (-203) Unable to complete ROS due to pt being intubated Antimicrobial Start date End date Cefepime 10/16/18-10/18/18, 10/23 active Ceftriaxone 10/18/18 10/20/18 Cefedinir 09/23/18 SEED POTATO CUTTER, uncertain timeframe Doxycycline 100 mg PO BID 09/06/18 SEED POTATO CUTTER, uncertain timeframe [id number] mg PO BID 08/23/18 SEED POTATO CUTTER, uncertain timeframe Fluconazole 150 mg PO QD 08/17/18 SEED POTATO CUTTER, uncertain timeframe Vancomycin 10/20/1810/24 Ampicillin 10/20/18 10/20/18 Fluconazole 10/20/18 10/26/18 Oseltamivir 10/21/18 active Meropenem 10/20/1810/23 Bactrim 08/17/18 SEED POTATO CUTTER, uncertain timeframe Estimated Creatinine Clearance: 72.4 mL/min (based on SCr of 0.4 mg/dL). Cardenas Results 10/24 C diff: negative 10/23 CSF GS/cx: rare neutrophils, no organisms seen, NGTD; WBCs 23 (86% lymphocy christopher, 9% mono/histocytes, 3% neutrophils), RBCs 1, glucose [...] Susceptible: ceftriaxone-dilut method 0.094, levofloxacin, penicillin e-dilut m ethod 0.064, trimethoprim, and vancomycin 09/19/18 L leg: [...] (NS) 100 mL IVPB (MB+) 2 g Intra venous Q8H* [START ON 11/06/2018] cefTRIAXone (ROCEPHIN) IVP [...] mg/day patch 1 patch 1 patch Transdermal QDAY(2 1) oseltamivir (TAMIFLU) oral suspension 75 mg 75 [...] mcg/NS 100 ml IV drip 0.6 mcg/kg/hr (10/29/18 0725) PRN and Respiratory Meds:acetaminophen Q4H PRN, calcium gluconate IV PRN (On Ca ll from Rx) AND Ionized Calcium PRN AND Notify Physician Ongoing, fentaN YL citrate PF Q2H PRN, ipratropium/albuterol Q4H PRN, magnesium sulfate PRN AN D [CANCELED] Magnesium PRN AND Notify Physician Ongoing, oxyCODONE Q4H PRN , pancrelipase 20,000 Units/ sodium bicarbonate 650 mg(#) PRN (Customs Examiner from Rx), potassium chloride SR PRN OR potassium chloride PRN Physical Examination Vital Signs: Last Vital Signs: 24 Hour Ran ge BP: 108/51 (10/30 0700) Temp: 37.1 C (98.7 F) (10/30 0700) Pulse: 69 (10/29 0800) Respirations: 23 PER MINUTE (10/29 0800) SpO2: 100 % (10/30 799) O2 Delivery: Endotracheal Tube (Oral) (10/29 699) SpO2 Pulse: 69 (10/29 0800) BP: (85-136)/(38-106) Temp: [36.8 C (98.2 F)-37.2 [...] tube; Salomon; NDT Laboratory Hematology Recent Labs 10/27/1841710/28/1834210/29/18 041 WBC 13.9* 11.9* 11.7* HGB 7.7* 7.5* 7.5* HCT 23.6* 23.0* 23.0* PLTCT 435* 454* 480* Chemistry Recent Labs 10/27/188 10/28/183 10/28/18 1414 10/29/18 0418 NA 138 138 -- 138 K 3.9 [...] with concern for Brain abscess, meningitis. I sp ent 31 minutes personally reviewing the patient's vital signs, critical care casper wsheets, labs, imaging studies, and clinical status, as well as examining the pa tient and providing recommendations regarding management including further diagn ostic testing and antimicrobial therapy. * Pankaj Bunn [...] with history of HTN, HLD, non-healing leg wound s, CAD s/p CABG in 07/2018 who presented to an OSH on 10/16 with shortness of yasmani th and chest pains and found to have a RUL pneumonia. She was intubated on 10/17 2 /2 worsening respiratory status and AMS. On 10/19, CTA with R temporal lobe intrap arenchymal air and surrounding edema. Transferred to [facility] for escalation of care . Hospital and ICU course: 10/19: Transferred [facility] OSH [facility] 10/26: DC amiodarone. Start spironolactone 12.5mg daily and lasix 20mg daily. Mamta gildardo flexiseal.. Plan for OR Monday Neuro/ENT: Altered [...] MAP goal > 65 Continue spironolactone - SEED POTATO CUTTER lisinopril on hold will discuss starting tomorrow SEED POTATO CUTTER atrovastatin and ASA Echo today: 35-40%, mitral valve borderline prolapse and regurg no vegetations JYOTSNA:There is a small echogenic mass on the coaptation line of the aortic valve . Appears to likely be associated with the left coronary cusp. A vegetation Continue to hold Metoprolol & Lasix Respiratory: RUL Pneumonia Date of Intubation: 10/17 Reason: Airway protection - continue to attempt daily weaning trials, has been failing due to tachypnea wh en placed on pressure support - will get trach with ENT today SEED POTATO CUTTER budesonide Influenza virus positive GI: Feeding: NPO, Isosource 1.5 @ 50 ml/hr with 250 ml water every 6 hours - decreas e free water to 150 ml every 6 hours today (Hold tube feeds at midnight for OR t omorrow) ABD US Bowel regimen, ensure daily BM [...] Electrolyte protocol in place Magnesium goal >2.0, i-John goal > 1.0, Potassium goal >4.0 mEq/L Prophylaxis Review: A)GI: [id number] B) Lines:Yes; Central Line; Indication: Frequent blood draws; Type: Inte rnal jugular C) Urinary Catheter:Yes; Retain salomon due [...] female. Overnight Events: No new events noted. Patien t going to OR with ENT today. OBJECTIVE Vital Signs: Last Filed Vital Signs: 24 Hour Ra nge BP: 90/48 (10/29 612) Temp: 37 C (98.6 F) (10/30 399) Pulse: 58 (10/29 612) Respirations: 27 PER MINUTE (10/29 612) SpO2: 99 % (10/29 612) O2 Delivery: Endotracheal Tube (Oral) (10/29 599) Weight: 51.7 kg (113 lb 15.7 oz) (10/29 0500) BP: (85-136)/(38-106) Temp: [36.8 C (98.2 F)-37.2 [...] Therapy: Yes: Weaning readiness screen (RT Only):: Impl ement protocol Weaning readiness screen Met (RT Only):: [...] Size: R - 3mm, L - 4mm Reactiv ity: brisk - Corneal reflex: R - present [...] (Last 24 hours) Glucose: (!) 131 (10/29/18 4988) Lab Review: Pertinent labs reviewed Radiology and Other Diagnostic Procedures Review: Pertinent radiologic and diag nostic procedures reviewed. Pankaj Bunn MD Date: 10/29/[phone] Associated attestation - Judy Santoro MD - [...] with R temporal lobe intraparenchymal air and surr ounding edema concerning for developing abscess . 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 site in fections HTN HLD COPD Tobaccoism Acute on chronic anemia I spent 45 minutes (excluding time spent performing or supervising any procedur es) providing and personally directing critical care services including -review of serial neurologic, hemodynamic, respiratory, telemetry, laboratory an d imaging data -management of fluids/electrolytes, antibiotics, vasoactive medications, gas exc hange/mechanical ventilation, sepsis protocol, ICU prophylaxis and ICU core jenny sures -pain/sedation/delirium mgt -medication review and management -organization [...] Remains intubated and asleep this AM. at beds florencia. Objective Vital Signs: Last Filed Vital Signs: 24 Ramiro r Range BP: 90/48 (10/29 612) Temp: 37 [...] previous right temporal lobe abscess. Final read pe nding Patient Active Problem List Diagnosis Date Noted [...] recent pneumonia. She is admitted for altered men madalyn status and was found to have pneumocephalus and cerebritis on imaging work u p with concerns for right temporal lobe overlying the tegmen suggestive of focal cerebritis and developing abscess -- Agree with IV abx per primary and ID -- CSF cultures with no growth -- Repeat MRI with re-demonstrating of right temporal lobe abscess. -- To OR today for bilateral ear exam under anesthesia and possible bilateral my ringotomy with tube placement, right tympanoplasty and mastoidectomy, tracheosto my - the r/b/a were discussed with the this morning and consent was obta ined. -- Please continue NPO and hold anticoagulation. -- Agree with aggressive medical management Please page for any questions or concerns. Juvenal Gottlieb MD Otolaryngology Resident, [phone] * Juvenal Gottlieb MD - 10/28/2018 9:22 AM CDT [facility]/HNS PROGRESS NOTE Today's Date: 10/28/2018 Admission Date: 10/19/2018 LOS: 9 days Subjective No acute events overnight. Remains intubated but able to respond to questions. D enies ear pain or drainage. Objective Vital Signs: Last Filed Vital Signs: 24 Ramiro r Range BP: 99/49 (10/28 0700) Temp: 37 C (98.6 F) (10/28 0000) Pulse: 69 (10/28 0700) Respirations: 28 PER MINUTE (10/28 0700) SpO2: 100 % (10/28 0600) O2 Delivery: Endotracheal Tube (Oral) (10/28 0700) SpO2 Pulse: 73 (10/28 0339) BP: (63-125)/(33-96) Temp: [36.9 C (98.4 F)-37.4 C (99.3 F)] Pulse: [54-77] Respirations: [17 PER MINUTE-34 PER MINUTE] SpO2: [100 %] O2 Delivery: Endotracheal Tube (Oral) Vitals: 10/26/18 0500 10/27/18 0400 10/28/18 0500 Weight: 52.2 kg (115 lb 1.3 oz) 53.3 kg (117 lb 8.1 oz) 52.6 kg (115 lb 15.4 oz) Intake/Output Summary: (Last 24 hours) Intake/Output [...] previous right temporal lobe abscess. Final read pe nding Patient Active Problem List Diagnosis Date Noted [...] recent pneumonia. She is admitted for altered men madalyn status and was found to have pneumocephalus and cerebritis on imaging work u p with concerns for right temporal lobe overlying [...] myringotomy with tube placement, right tympanoplasty and mastoidectom y, tracheostomy - this was discussed with the patient this morning. Attempted to contract family to obtain consent, but not present at bedside nor answering gene ne. NEICU team to update ENT team when [...] with history of HTN, HLD, non-healing leg wound s, CAD s/p CABG in 07/2018 who presented to an OSH on 10/16 with shortness of yasmani th and chest pains and found to have a RUL pneumonia. She was intubated on 10/17 2 /2 worsening respiratory status and AMS. On 10/19, CTA with R temporal lobe intrap arenchymal air and surrounding edema. Transferred to [facility] for escalation of care . Hospital and ICU course: 10/19: Transferred from OSH to [facility] 10/26: DC amiodarone. Start spironolactone 12.5mg daily and lasix 20mg daily. Mamta gildardo flexiseal.. Plan for OR Monday Neuro/ENT: Altered [...] goal: < 160 MAP goal > 65 SEED POTATO CUTTER metoprolol Start spironolactone - DC amiodarone (started for AFib ppx) - SEED POTATO CUTTER lisinopril on hold will discuss starting tomorrow SEED POTATO CUTTER atrovastatin and ASA - SEED POTATO CUTTER plavix on hold Echo today: 35-40%, mitral valve borderline prolapse and regurg no vegetations JYOTSNA:There is a small echogenic mass on the coaptation line of the aortic valve . Appears to likely be associated with the left coronary cusp. A vegetation Restart Metoprolol & Lasix? Respiratory: RUL Pneumonia Date of Intubation: 10/17 Reason: Airway protection - continue to attempt daily weaning trials, has been failing due to tachypnea wh en placed on pressure support - will possibly need trach placement with ENT early next week SEED POTATO CUTTER budesonide resumed Influenza virus positive PS/CPAP 4 hours BID with MMV in between (PS 15/5 MMV 370 RR22 P5 PS15 FiO2 0.4) , fail criteria RR 35 - PaO2 goal >100, Spo2 goal >95%, PCO2 goal 35-40 10/25 chest xray: Mild cardiomegaly and pulmonary venous congestion with small le ft pleural effusion and bibasilar atelectasis. GI: Feeding: NPO, Isosource 1.5 @ 50 ml/hr with 250 ml water every 6 hours - decreas e free water to 150 ml every 6 hours today (Hold tube feeds at midnight for OR t omorrow) Bowel regimen, ensure daily BM (last BM [...] Electrolyte protocol in place Magnesium goal >2.0, i-John goal > 1.0, Potassium goal >4.0 mEq/L Prophylaxis Review: A)GI: [id number] B) Lines:Yes; Central Line; Indication: Frequent blood draws; Type: Inte rnal jugular C) Urinary Catheter:Yes; Retain salomon due [...] female. Overnight Events: No new events noted. Patien t given fluids for hypotension. OBJECTIVE Vital Signs: Last Filed Vital Signs: 24 Hour Ra nge BP: 99/46 (10/28 0427) Temp: 37 C (98.6 F) (10/28 0000) Pulse: 56 (10/28 0442) Respirations: 27 PER MINUTE (10/28 0442) SpO2: 100 % (10/28 0442) O2 Delivery: Endotracheal Tube (Oral) (10/28 0400) [...] oz) 52.6 kg (115 lb 15.4 oz) Artificial airway: Endotracheal Tube Ventilator/ Respiratory [...] Size: R - 3mm, L - 4mm Reactiv ity: brisk - Corneal reflex: R - present [...] Other Diagnostic Procedures Review: Pertinent radiologic and diag nostic procedures reviewed. Pankaj Bunn MD Date: 10/28/[phone] Associated attestation - Farhad Perez MD - 10/29/2018 12:20 AM CDT N: recovered meningitis She is alert and is very strong- she was able to sit in a chair today for 1hr be fore a painic attack occurred and she had [...] responding to antibiotics - no plans for neurosur radha at this point. Lacunar stroke we have keppra seizure prophylaxis in place- this may be discontinued after the OR. OR tomorrow for myringotomy tubes, mastoidectomy, tracheostomy. CV: CM EF 40-45% MAP goal >65 Tried to diurese her over the past several days - but the fluid was given back d ue to hypotension. Will give albumin or blood if she needs volume in the future . She will probably require blood in the OR. T&C. HgB 7.5, iron deficiency CAD; recent CABGx4 in [place] in Jul 2018. Asa 81, atorvastatin 20, spironolactone 12.5 Today we held the metoprolol 12.5 BID due to low bp She has been loaded with several months of amiodarone through this week. (prophy laxis after her cardiac surgery was left on). She was recently on 3mo plavix af ter heart surgery per her surgeon's protocol and this was stopped las week on ad mission here. More frequent PVC's, may need to resume betablocker. Resp: Flail sternum COPD Recently smoked until this admission Influenza pneumonia - stop oseltamivir after 10 d Fluid overload from CM Plan trach due to intolerance of weaning She sat in chair for 1 hr today comfortably before suddenly and unexpectedly dev eloping coughing, agitation fit, blue appearance, frothy white secretions in ETT , tachycardia 150's with frequent short runs of VT. This was attributed to anx iety attack. She was back in bed with HR 120 when I saw her. Renal: volume status difficult to ascertain GI: npo after mn Complained of abd pain, had RUQ tenderness. Alkphos and bili not elevated. Ultr asound was ordered but not completed. Will perform at bedside and r/o subcapsul ar liver hematoma. ID: meinigitis resovled Cefepime + vanc treatment was used. Cefepime through 11/05, to cover for menigitis plus the pseudomonas in the leg wo unds, then change to ceftriaxone for remainder of 4 weeks Fluconazole for thrush stopped. Oseltamivir 10 d course, influenza pneumonia Will get ear tubes tomorrow Heme: iron deficiency anemia. Hold heparin for the OR. NEICU Attending Rollway Man Attestation Etelvina Alonso is a 58 y.o. y.o. female admitted 10/19/2018 to the NEICU critically ill with respiratory failure and is receiving critical care services for the nicci atment of this primary diagnosis and the prevention and management of secondary injuries. I have reviewed the events, seen, personally examined, fully evaluated, and disc ussed this patient with NeuroICU team during the team rounds. I agree with the o bjective findings and agree with the plan of care as documented by the resident with the exceptions noted. This patient exhibits injury of at least one organ system and there is high prob ability of imminent or life-threatening deterioration in patient's condition. A s such, there is a need for continued medical attention including frequent neuro logical examination, frequent vital signs, and the cares appropriate for an ICU. I spent 55 minutes providing and personally directing neurological care services . Family and patient were counseled about the diagnosis, treatment plan, and pro gnosis. Farhad Perez MD Date: 10/29/2018 * Judy [...] of the abscess. When repeat imaging is obta ined, please contact Neurosurgery with any changes or other concerns prior to th at time. We will sign off. Sheron Beebe [...] with history of HTN, HLD, non-healing leg wound s, CAD s/p CABG in 07/2018 who presented to an OSH on 10/16 with shortness of yasmani th and chest pains and found to have a RUL pneumonia. She was intubated on 10/17 2 /2 worsening respiratory status and AMS. On 10/19, CTA with R temporal lobe intrap arenchymal air and surrounding edema. Transferred to [facility] for escalation of care . Hospital and ICU course: 10/19: Transferred from OSH to [facility] 10/26: DC amiodarone. Start spironolactone 12.5mg daily and lasix 20mg daily. Mamta gildardo flexiseal.. Plan for OR Monday Neuro/ENT: Altered [...] goal: < 160 MAP goal > 65 SEED POTATO CUTTER metoprolol Start spironolactone - DC amiodarone (started for AFib ppx) - SEED POTATO CUTTER lisinopril on hold will discuss starting tomorrow SEED POTATO CUTTER atrovastatin and ASA - SEED POTATO CUTTER plavix on hold Echo today: 35-40%, mitral valve borderline prolapse and regurg no vegetations JYOTSNA:There is a small echogenic mass on the coaptation line of the aortic valve . Appears to likely be associated with the left coronary cusp. A vegetation Respiratory: RUL Pneumonia Date of Intubation: 10/17 Reason: Airway protection - continue to attempt daily weaning trials, has been failing due to tachypnea wh en placed on pressure support - will possibly need trach placement with ENT early next week SEED POTATO CUTTER budesonide resumed Influenza virus positive PS/CPAP 4 hours BID with MMV in between - PaO2 goal >100, Spo2 goal >95%, PCO2 goal 35-40 10/25 chest xray: Mild cardiomegaly and pulmonary venous congestion with small le ft pleural effusion and bibasilar atelectasis. GI: Feeding: NPO, Isosource 1.5 @ 50 ml/hr with 250 ml water every 6 hours - decreas e free water to 150 ml every 6 [...] Electrolyte protocol in place Magnesium goal >2.0, i-John goal > 1.0, Potassium goal >4.0 mEq/L Prophylaxis Review: A)GI: [id number] B) Lines:Yes; Central Line; Indication: Frequent blood draws; Type: Inte rnal jugular C) Urinary Catheter:Yes; Retain salomon due [...] Signs: Last Filed Vital Signs: 24 Hour Ra nge BP: 97/50 (10/27 612) Temp: 37.1 C [...] Therapy: Yes: Weaning readiness screen (RT Only):: Impl ement protocol Weaning readiness screen Met (RT Only):: [...] (117 lb 8.1 oz), SpO2 100 %. Daily coma score: E: 4 - Opens eyes on own M: 5 - Localizes to pain V: 1 - Makes no noise Neuro: Mental Status: Alert&Oriented x 3, remains intubated Cranial Nerves: - Pupil exam: Size: R - 3mm, L - 4mm Reactiv ity: brisk - Corneal reflex: R - present [...] (Last 24 hours) Glucose: (!) 176 (10/27/18 2656) Lab Review: Pertinent labs reviewed Radiology and Other Diagnostic Procedures Review: Pertinent radiologic and diag nostic procedures reviewed. 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 CAD- recent emergent CABG in [place], [place]. She was recently on amiodarone for prophylaxis and failed to have this discontinued in clinic followup. She was g iven plavix by surgeon in [place] for 3mo duration after CABG per their leelee col. Both of these medications have been discontinued. Cardiomyopathy- ischemic, nondilated. This has potentially improved over the co urse of her acute illness flail sternum - CTS consult appreciated Continue asa, atorvastatin. Diuresis goal 500 -1000mL each day (as tolerated) On home lasix 20 EF 40-45% Resp: -Failure to wean - PS 15/5 for four hours bid Will set failure threshold for pressure support trials at a generous RR 35 in or koko to allow her to participate. If she exceeds this then will place back on ful l support - this may later be amended. MMV 370 RR22 P5 PS15 FiO2 0.4 Plan for trach Monday. She may be difficult wean after her trach due to flail s ternum, cardiogenic pulmonary edema, and influenza pneumonia. I hope to see her sitting at the edge of the bed, sitting in a chair, and ambula ting on the ventilator as she has good level of alertness and she has good motor strength in spite of respiratory failure. -Influenza pneumonia -CHF fluid overload/pulmonary edema She has had multiple admissions for "pneumonia" since her heart surgery. There are multiple reasons for this: she has continued to smoke 1 ppd until this admis ashli, she has COPD, she has probably had flail sternum for some time, she has ca rdiomyopathy and likely has had pulmonary edema - she has been sleeping in a latricia ir due to shortness of breath, she has [...] will be able to place PICC for snf abx. Continue meropenem and vancomycin Fluconazole for thrush Oseltamivir for + influenza Persistent leukocytosis Endo: normoglycemic NEICU Attending Rollway Man Attestation Etelvina Alonso is a 58 y.o. y.o. female admitted 10/19/2018 to the NEICU critically ill with meningitis and is receiving critical care services for the treatment of this primary diagnosis and the prevention and management of secondary injuries. I have reviewed the events, seen, personally examined, fully evaluated, and disc ussed this patient with NeuroICU team during the team rounds. I agree with the o bjective findings and agree with the plan of care as documented by the resident with the exceptions noted. This patient exhibits injury of at least one organ system and there is high prob ability of imminent or life-threatening deterioration in patient's condition. A s such, there is a need for continued medical attention including frequent neuro logical examination, frequent vital signs, and the cares appropriate for an ICU. I spent 65 minutes providing and personally directing neurological care services . Family and patient were counseled about the diagnosis, treatment plan, and pro gnosis. 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 pneumoniae bacteremia Improving clinically. She has been able to communicate with me brightly and ramirez vikas answering questions although intubated and unable to wean from the ventilat or. Continue seizure prophylaxis CV: CAD- recent emergent CABG in [place], [place]. She was recently on amiodarone for prophylaxis and failed to have this discontinued in clinic followup. She was g iven plavix by surgeon in [place] for 3mo duration after CABG per their leelee col. Both of these medications have been discontinued. Cardiomyopathy- ischemic, nondilated. This has potentially improved over the co urse of her acute illness flail sternum - CTS consult appreciated Continue asa, atorvastatin. Lasix 20 IV qd for gradual diuresis 500-1000mL per day for On home lasix 20 EF 40-45% Resp: -Failure to wean - Plan for trach Monday. Although she will still be difficult wean after her trach due to flail sternum, cardiogenic pulmonary edema, and infl uenza pneumonia. During weaning trials she fails instantly with tachypnea 40-50 breaths per minute -Influenza pneumonia -CHF fluid overload/pulmonary edema She has had multiple admissions for "pneumonia" since her heart surgery. There are multiple reasons for this: she has continued to smoke 1 ppd until this admis ashli, she has COPD, she has probably had flail sternum for some time, she has ca rdiomyopathy and likely has had pulmonary edema - she has been sleeping in a latricia ir due to shortness of breath, she has [...] will be able to place PICC for snf abx. Continue meropenem and vancomycin Fluconazole for thrush Oseltamivir for + influenza Persistent leukocytosis Endo: normoglycemic NEICU Attending Rollway Man Attestation Etelvina Alonso is a 58 y.o. y.o. female admitted 10/19/2018 to the NEICU critically ill with respiratory failure and is receiving critical care services for the nicci atment of this primary diagnosis and the prevention and management of secondary injuries. I have reviewed the events, seen, personally examined, fully evaluated, and disc ussed this patient with NeuroICU team during the team rounds. I agree with the o bjective findings and agree with the plan of care as documented by the resident with the exceptions noted. This patient exhibits injury of at least one organ system and there is high prob ability of imminent or life-threatening deterioration in patient's condition. As such, there is a need for continued medical attention including frequent neur ological examination, frequent vital signs, and the cares appropriate for an ICU . I spent 65 minutes providing and personally directing neurological care services . Family and patient were counseled about the diagnosis, treatment plan, and pro gnosis. Farhad Perez MD Date: 10/26/2018 * Elenita Butler, OT - 10/26/2018 2:32 PM CDT OCCUPATIONAL THERAPY NO TREATMENT NOTE The patient was not seen due to: pt not meeting BP goal in supine and RR 33 at r est on ventilator. RN states pt agitated earlier, currently resting. Will hold a t this time, follow up next week. Note plans for OR Monday, will follow up after . Therapist: Elenita Butler, OT Date: 10/26/2018 * Louise Hennessy, PT - 10/26/2018 2:30 PM CDT PHYSICAL THERAPY NOTE Patient was not seen for PT/OT due to not meeting BP goal in supine and RR 33 at rest on ventilator. RN states pt agitated earlier, currently resting. Will hold at this time, follow up next week. Note plans for OR Monday, will follow up aft er Therapist: Louise Hennessy, PT Date: 10/26/2018 * Pato Jacinto MD - 10/26/2018 11:32 AM CDT Brief Neurosurgery Progress Note Recent MRI reviewed. 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 ENT is planning to perform a tympanomastoidectomy on . Given the small size, we will likely recommend continued medical manageme nt. We will round over the weekend and further discuss with staff. No emergent n eurosurgical interventions. Discussed with Dr. Cristina. Pato Jacinto MD * Yoon Valle MD - 10/26/2018 11:27 AM CDT CLEMENTINE/HNS PROGRESS NOTE Today's Date: 10/26/2018 Admission Date: 10/19/2018 LOS: 7 days Subjective No acute events overnight. Remains intubated but able to respond to questions. D enies ear pain or drainage. Objective Vital Signs: Last Filed Vital Signs: 24 Ramiro r Range BP: 99/46 (10/26 0800) Temp: 37.1 [...] TM intact. Serous effusion present bilaterally. Mild eryth marleny of right TM Face symmetric Respirations regular and unlabored on ventilator Laboratory: Pertinent labs reviewed Radiology/Imaging: Pertinent radiology reviewed. MRI CT head and IAC reviewed with neuroradiology Repeat MRI 10/26 demonstrates previous right temporal lobe abscess. Final read pe nding Patient Active Problem List Diagnosis Date Noted [...] recent pneumonia. She is admitted for altered men madalyn status and was found to have pneumocephalus and cerebritis on imaging work u p with concerns for right temporal lobe overlying the tegmen suggestive of focal cerebritis and developing abscess -- Agree with IV abx per primary and ID -- CSF cultures with NGTD -- Repeat MRI with re-demonstrating of right temporal lobe abscess. Final read p ending. Will defer interventions for abscess to NSGY. - ENT will plan to take to OR Monday for tympanomastoidectomy - this was discuss ed with the patient this morning - NEICU requesting tracheostomy due to failure to wean. NeuroICU to discuss with family about trach and will notify ENT if patient and family are willing to pro ceed. - Please make NPO and hold anticoagulation [...] vein harvest, both tracking deep, L with purulen t drainage Pneumocephalus with surrounding edema on CTA head 10/19/18 at OSH, cerebritis, pos sible developing abscess in basal right temporal lobe on MRI head 10/20/18 Influenza A with possible HCAP Acute hypoxic/hypercarbic respiratory failure -Past concern for biliateral LE wound infection as below -10/16 presented to [facility] with a few days of fever, cough -10/16/18: BC x 2 Strep Pneumo R- Clindamycin and erythromcyin S: ceftriaxone (MARCY 0.094), PCN (MACRY 0.064), levo, TMP/S, vanc. Rapid Flu Ag negative. MRSA nasal screen negative. 10/17/18: Sputum culture: Yeast and normal chelsey -Rapid mental status deterioration, intubated -CTA head 10/19/18 at OSH, small area of intraparenchymal air above the mastoid ai r cells and some edema around that area, with concern for possible infection. Pt was transferred to for further management -10/19: CXR patchy mixed alveolar and interstitial opacities -10/20: Tracheal aspirate: < 10 PMN, < 10 squam, no orgs. Moderate growth no significant chelsey -10/20: LLE swab: Pseudomonas aeruginosa (R - meropenem, ceftazidime, pip/tazo; S - cefepime, tobramycin, gentamicin, ceftolozane/tazobactam and ceftazidime/aviba ctam) -10/20: MRI head w/wo: Ovoid focus of diffusion restriction and partial rim enhanc ement in the basal right temporal lobe overlying the tegmen suggestive of focal cerebritis and developing abscess. Dependent diffusion restricting material wi thin the lateral ventricles suspicious for ventriculitis. Thin complex left po sterolateral convexity subdural fluid collection with diffusion restriction sugg estive of thin subdural empyema. -10/23: JYOTSNA: There [...] mass on the coaptation line of the aor tic valve. Appears to likely be associated with the left coronary cusp. A vegeta tion cannot be ruled out. 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 No stenosis. No regurgitation. Concern for bilateral LE wound infection, [facility] Bilateral vein harvest sites on lower extremities from CABG in [facility] [place], 07/2018 Multiple cultures in [facility], [place]. 09/07/18- Culture from R leg incision - [...] Mid To Distal Anteroapical Severe Hypokinesis To Akine sis, anterior mitral valve prolapse, moderate posterior lateral jet MV regurg HTN Depression Possible overdose prior to 10/16 admission -gabapentin, APAP/caffeine/butalbital H/o previous LE rash that improved after CABG Recommendations: -Will continue cefepime given her LLE wound growing Pseudomonas that shows resis tance to meropenem. 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 Will tentatively plan for 2 weeks (from 10/23) of cefepime to treat both the LE wound infections and Strep pneumo b acteremia and suspected HARDWARE ENGINEER abscess. Tentative last day of cefepime would be . -After cefepime she could be transitioned to ceftriaxone 2 g IV BID for meningit is. This would continue until at least 11/12 (4 weeks from 10/16). -Continue oseltamivir for influenza x 10 days total, through 10/30 -Continue fluconazole x7 days total, would stop after dose on 10/27/18 - Note ENT plan for OR Monday for tympanomastoidectomy -Monitor for abx side effects Shan Walker DO Infectious Diseases Fellow Pager # [phone] Discussed with attending on service, Dr. Sepulveda I have seen, personally evaluated, and discussed the patient's care with Dr. Maria mahmood, Infectious Diseases Fellow. I agree with the subjective notations, object chema findings and agree with the plan of care as documented in this note with anil ts made by me as necessary. Benny Sepulveda MD Driver License Reviewing Officer Division of Infectious Diseases I will round on Monday. For any questions over the weekend please page the ID chantelle leonard account contact associate at [phone] Interval History Etelvina Alonso is a 58 y.o. female with a PMH significant for CABG (07/2018) who p resented to [facility] L[facility] in [facility] on 10/16/18 after noting worsening cough and sternal pain from recent sternotomy and non-healing LE graft sites. Transfe rred to [facility] on 10/19/18 for right temporal lobe intraparenchymal air and edema se en on CTA. Afebrile, intubated V/AC, 18, 40%, 5 Dexmedetomidine WBC 12.6 Cr 0.41 I/O: 2460/3374 (-913) Discussed with pt's at bedside Unable to complete ROS due to pt mental status Antimicrobial Start date End date Cefepime 10/16/18-10/18/18, 10/23 active Ceftriaxone 10/18/18 10/20/18 Cefedinir 09/23/18 SEED POTATO CUTTER, uncertain timeframe Doxycycline 100 mg PO BID 09/06/18 SEED POTATO CUTTER, uncertain timeframe [id number] mg PO BID 08/23/18 SEED POTATO CUTTER, uncertain timeframe Fluconazole 150 mg PO QD 08/17/18 SEED POTATO CUTTER, uncertain timeframe Vancomycin 10/20/1810/24 Ampicillin 10/20/18 10/20/18 Fluconazole 10/20/18 active Oseltamivir 10/21/18 active Meropenem 10/20/1810/23 Bactrim 08/17/18 SEED POTATO CUTTER, uncertain timeframe Estimated Creatinine Clearance: 73.1 mL/min (based on SCr of 0.41 mg/dL). Cardenas Results 10/24 C diff: negative 10/23 CSF GS/cx: rare neutrophils, no organisms seen, NGTD; WBCs 23 (86% lymphocy christopher, 9% mono/histocytes, 3% neutrophils), RBCs 1, glucose [...] Susceptible: ceftriaxone-dilut method 0.094, levofloxacin, penicillin e-dilut m ethod 0.064, trimethoprim, and vancomycin 09/19/18 L leg: [...] (NS) 100 mL IVPB (MB+) 2 g Intra venous Q8H* chlorhexidine gluconate (PERIDEX) 0.12 % solution [...] mg/day patch 1 patch 1 patch Transdermal QDAY(2 1) oseltamivir (TAMIFLU) oral suspension 75 mg 75 [...] mcg/NS 100 ml IV drip 0.7 mcg/kg/hr (03/15/19 07) PRN and Respiratory Meds:acetaminophen Q6H PRN, calcium gluconate IV PRN (On Ca ll from Rx) AND Ionized Calcium PRN AND Notify Physician Ongoing, fentaN YL citrate PF Q2H PRN, ipratropium/albuterol Q4H PRN, magnesium sulfate PRN AN D [] Magnesium PRN AND Notify Physician Ongoing, oxyCODONE Q4H PRN, pancrelipase 20,000 Units/ sodium bicarbonate 650 mg(#) PRN (Customs Examiner from Rx), potassium chloride SR PRN OR potassium chloride PRN Physical Examination Vital Signs: Last Vital Signs: 24 Hour Ran ge BP: 96/57 (10/26 699) Temp: 37.1 C [...] R and L extremities from prior vein graftin g with no purulent drainage noted Skin: no rash Msk: no joint swelling or redness Psych: unable to assess Lines/drains/tubes: CVC in R IJ; ET tube; Salomon; NDT Laboratory Hematology Recent Labs 10/24/18 0200 10/25/18 0319 10/26/18 0316 WBC 16.3* 13.9* 12.6* HGB 8.9* 8.0* 7.8* HCT 27.1* 24.2* 23.7* PLTCT 378 327 355 Chemistry Recent Labs 10/24/18 0200 10/25/18 0319 10/25/18 0815 10/25/18 1400 10/26/18 0316 NA 140 [...] ill with concern for sepsis, meningitis, brain abscess . I spent 35 minutes personally reviewing the patient's vital signs, critical care flowsheets, labs, imaging studies, and clinical status, as well as examinin g the patient and providing recommendations [facility] and antimicrobial therapy. * Ling Capellan PA-C - 10/26/2018 7:27 AM CDT CTS update note: Etelvina Lamb a 58 y.o.femalewith history of HTN, HLD, no nhealing leg wo unds, CAD s/p CABG in07/2018 in [place] who presented to an OSH on 10/16 with sh ortness of breath and chest pains and found to have a RUL pneumonia. She was int ubated on 10/17 2/2 worsening respiratory status and AMS. Workup showed cerebritis , tegmen dehisence, encephalocele, possible temporal lobe abscess. She has faile d ventilator weaning since transfer to [facility]. 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 VS: Afebrile, SB/SR 50-60s, SBP 90-110s Remains intubated, sedated on precedex Labs: Hgb 7.8, plt 355, WBC 12.6 Cr 0.41 Plan: 1. MRI head today to re-eval right temporal lobe abscess 2. No plans for surgical intervention on sternal non-union at this time. Would c onsider evaluation by plastic surgery for sternal reconstruction once extubated and recovered from her acute illness. I spent 15 minutes coordinating the care of this patient including examining the patient. * Mica Javed, VEGETABLE HARVEST WORKER - 10/26/2018 7:14 AM CDT Neuro Critical [...] with history of HTN, HLD, non-healing leg wound s, CAD s/p CABG in 07/2018 who presented to an OSH on 10/16 with shortness of yasmani th and chest pains and found to have a RUL pneumonia. She was intubated on 10/17 2 /2 worsening respiratory status and AMS. On 10/19, CTA with R temporal lobe intrap arenchymal air and surrounding edema. Transferred to [facility] for escalation of care . Hospital and ICU course: 10/19: [facility] 10[facility]: DC amiodarone. Start spironolactone 12.5mg daily and lasix 20mg daily. Mamta gildardo flexiseal.. Plan for OR Monday Neuro/ENT: Altered [...] goal: < 160 MAP goal > 65 SEED POTATO CUTTER metoprolol Start spironolactone - DC amiodarone (started for AFib ppx) - SEED POTATO CUTTER lisinopril on hold will discuss starting tomorrow SEED POTATO CUTTER atrovastatin and ASA - SEED POTATO CUTTER plavix on hold Echo today: 35-40%, mitral valve borderline prolapse and regurg no vegetations JYOTSNA:There is a small echogenic mass on the coaptation line of the aortic valve . Appears to likely be associated with the left coronary cusp. A vegetation Respiratory: RUL Pneumonia Date of Intubation: 10/17 Reason: Airway protection V/AC: Tv 370, RR 18, fiO2 40%, PEEP 5 - continue to attempt daily weaning trials, has been failing due to tachypnea wh en placed on pressure support - will possibly need trach placement with ENT early next week SEED POTATO CUTTER budesonide resumed Influenza virus positive - PaO2 goal >100, Spo2 goal >95%, PCO2 goal 35-40 10/25 chest xray: Mild cardiomegaly and pulmonary venous congestion with small le ft pleural effusion and bibasilar atelectasis. GI: Feeding: NPO, Isosource 1.5 @ 50 ml/hr with 250 ml water every 6 hours - decreas e free water to 150 ml every 6 [...] admit at OSH with Cr 1.10 3 Cr now 0.41 Aim for normovolemia I&O over 24 hours -914ml Endocrine: Serum glucose 161 - Trend on daily BMP - Blood glucose goal 100-180mg/dl FEN: IVF: None Daily K+ Electrolyte protocol in place Magnesium goal >2.0, i-John goal > 1.0, Potassium goal >4.0 mEq/L Skin: - Left surgical incision dehiscence - Stage 2 pressure ulcer sacrum - Wound team following, treatment per recs Wounds (NOT for Pressure Injuries) 10/19/18 233 Left Leg Surgical Incision (Act chema) 10/19/18 233 Leg Wound Orientation: Left Wound [...] to be device related, please select the dev ice:: Wound Image 10/30/2018 8:14 AM Agree With My Assessment? Yes 11/03/2018 4:00 AM Wound Dressing Status None 11/03/2018 8:00 AM Wound Dressing and / or Treatment Criticaid Barrier Cream 11/03/2018 8:00 AM Wound Drainage Amount None 11/03/2018 8:00 AM Wound Base Assessment Moist;[place] 11/03/2018 12:00 AM Surrounding Skin Assessment Intact [...] Number of days: 16 Prophylaxis Review: A)GI: [id number] B) Lines:Yes; Central Line; Indication: Frequent blood draws; Type: Inte rnal jugular C) Urinary Catheter:Yes; Retain salomon due [...] Signs: Last Filed Vital Signs: 24 Hour Ra nge BP: 96/57 (10/26 699) Temp: 37.1 C (98.8 F) (10/26 040) Pulse: 64 (10/26 699) Respirations: 28 PER MINUTE (10/26 699) SpO2: 100 % (10/26 699) O2 Delivery: Endotracheal Tube (Oral) (10/26 030) Weight: 52.2 kg (115 lb 1.3 oz) (10/26 050) BP: (93-118)/(36-92) Temp: [36.8 C (98.2 F)-37.3 [...] Therapy: Yes: Weaning readiness screen (RT Only):: Impl ement protocol Weaning readiness screen Met (RT Only):: [...] Size: R - 3mm, L - 4mm Reactiv ity: brisk - Corneal reflex: R - present [...] Other Diagnostic Procedures Review: Pertinent radiologic and diag nostic procedures reviewed. Mica Javed APRN Date: 10/26/[phone] I spent 50 minutes managing the care of this patient. Ms Alonso is critically ill with encephalitis, meningitis, right temporal lobe abscess, pneumonia. Cares in cluded: detailed neurologic and systems exam, medication review, [...] antibiotics had been used for an extended du ration MRI without discrete enough abscess collection for surgical drainage. Small enc ephalocoele may be revisited after clinical improvement. Will repeat MRI tomorrow 10/26 to assist with future planning if clinically indic ated Previous leg wounds from vein harvest site and previous pneumonia and previous s pneumoniae bacteremia Improving clinically. She now has eye opening and moving all extremities - some what without directed purpose. Not quite following commands. Continue seizure prophylaxis CV: flail sternum - CTS consult appreciated I do not think her chest is currently infected. Will talk to about proc eding with trach and then will revisit sternal fixation at a later date if she h as persistent failure to wean after that Recent emergent CABG at [facility] in [facility]. her leg wound infections may have been influenced by the fact that she lived in an extended [facility] in [place] and lives in one bedroom apartment with 6 people in [facility] [place] and she has continued to smoke until this admission. Will d/c amiodarone after some further diuresis Will remain of plavix - I can see no reason why she reverted to this- it was not a current med at her CTS visit for her leg wounds in [place]. Her CTS surgery op report does not [...] he is amenable to this after we investiga te sternal fixation- he will be travelling to [facility] today but will return tomorrow [...] will be able to place PICC for snf abx. Continue meropenem and vancomycin Fluconazole for thrush Oseltamivir for + influenza Persistent leukocytosis, low grade fever, but neurologic improvement. Endo: normoglycemic NEICU Attending Rollway Man Attestation Etelvina Alonso is a 58 y.o. y.o. female admitted 10/19/2018 to the NEICU critically ill with respiratory failure and is receiving critical care services for the nicci atment of this primary diagnosis and the prevention and management of secondary injuries. I have reviewed the events, seen, personally examined, fully evaluated, and disc ussed this patient with NeuroICU team during the team rounds. I agree with the o bjective findings and agree with the plan of care as documented by the resident with the exceptions noted. This patient exhibits injury of at least one organ system and there is high prob ability of imminent or life-threatening deterioration in patient's condition. As such, there is a need for continued medical attention including frequent neur ological examination, frequent vital signs, and the cares appropriate for an ICU . I spent 55 minutes providing and personally directing neurological care services . Family and patient were counseled about the diagnosis, treatment plan, and pro gnosis. Farhad Perez MD Date: 10/25/2018 * Kelly Vitale, RD - 10/25/2018 3:45 PM CDT CLINICAL NUTRITION Clinical Nutrition Follow-Up Summary NAME:Etelvina Alonso :1960 AG E: 58 y.o. ADMISSION DATE: 10/19/2018 DAYS ADMITTED: LOS: 6 days Nutrition Assessment of Patient: Malnutrition Assessment: (pending subjective information) Current Oral Intake: NPO Estimated Calorie Needs: 7663-4186 kcal(25-30 kcal/kg per present wt 52.8kg) Estimated Protein Needs: 66-80(1.25-1.5g/kg present wt) Oral Diet Order: NPO Current EN Order: Isosource 1.5 @ 50 ml/hr + 150 ml water bolus Q6hr. At goal w ould provide 1800 kcal, 82 gm protein and 912 ml free water from EN at goal with additional 600 ml water from ordered boluses. Comments: 58 yo female with hx of COPD, HTN, HLD, CAD s/p CABG in 07/2018 with non- healin g leg wounds who presented to an OSH on 10/16 with shortness of breath and chest p ains and was found to have a RUL pneumonia. She was intubated on 10/17 secondary t o worsening respiratory status and AMS. On 10/19, CTA showed R temporal lobe intra parenchymal air and surrounding edema. Transferred to [facility] for escalation of car e. Pt remains intubated and sedated on Precedex at this time. Propofol off. OGT in place. EN of Isosource 1.5 @ 50 ml/hr. Tolerated advancement in EN rate with lyte replacement PRN. [address] ave 10/22- met 94% min kcal goal and withi n protein goal range. Unable to obtain subjective data, diet/wt history. New s mall stage II pressure injury to sacrum. Recommendation: Off propofol, recommend Isosource 1.5 @ goal of 45 ml/hr to provide 1620 kcal, 7 3 gm protein and 820 ml free water from EN at goal. Additional fluids per prim manny team. If patient extubated, recommend diet textures per FAST FOOD CASHIER recs with even tual goal diet of Cardiac Intervention / Plan: Updated EN recs with stage II pressure injury and ordered vit C, zinc supplement ation Will monitor EN tolerance/provision and wt trends, GI symptoms, labs, meds, I/O s Obtain subjective information as able Nutrition Diagnosis: [...] Throughout Stay Kelly Vitale, MS,RD, LD, CNSC *[id number] * Elenita Butler, OT - 10/25/2018 1:49 PM CDT OCCUPATIONAL THERAPY ASSESSMENT NOTE Patient Name: Etelvina Alonso Room/Bed: TN6774/01 Admitting Diagnosis: altered mental status Mobility Progressive Mobility Level: Active bed level mobility Level of Assistance: Assist X2 Assistive Device: None Time Tolerated: 0-10 minutes Activity Limited By: Patient request to stop Subjective Pertinent Dx per Physician: HTN, HLD, no nhealing leg wounds, CAD s/p CABG in in [place] who presented to an OSH on 10/16 with shortness of breath and melquiades st pains and found to have a RUL pneumonia. She was intubated on 10/17 09/15 worseni ng respiratory status and AMS. Workup showed cerebritis, tegmen dehisence, encep halocele, possible temporal lobe abscess. Sternal nonunion, 2 loosened sternal w ires, nonop per CTS. Precautions: Sternal Precautions;Falls;NPO Comments: [...] unable to answer at this time. Chart i ndicates pt is a heavy smoker, has had popping in chest shortly after CABG in [facility]. Vision Comment: makes eye contact to L and R, more cueing required to look L, not wanti ng to turn head to L but able with cues. Not able to mouth the word nor hold up number of fingers to indicate that she sees how many fingers OT is holding up on L. Difficult to determine if visual vs cognitive deficit or both. Will continue to assess. ADL's Comment: Total assist for all. Pt intubated but awake and answering yes/no quest ions via head nod, following some motor commands. Pt adamantly declined to sit e dge of bed with therapists' assist despite encouragement and education on purpos e of activity. Pt nodded that she wanted to scoot up in bed and was able to assi st with bridging a few times for adjustment of chux and drawsheet and scooting u p to top of bed. Moving all four limbs, B wrist restraints in place due to high risk of self-extubation. Pt moving hands spontaneously and moves UE's when wrist restraints removed brief ly, but not following commands for formal ROM and strength testing. Pt mouthing word "poop" and OT and RN assisted pt onto bedpan, pt bridging to get on bedpan. Cognition Cognition Comment: briskly answers yes/no questions and follows some motor comma nds. Will further assess once extubated and better able to communicate. See abov e comments. UE PROM Overall BUE PROM WNL: Yes UE AROM Comment: grossly WFL Education Persons Educated: Patient Teaching Methods: Verbal Instruction Patient Response: Return Demonstration Topics: Role of OT, Goals for Therapy Assessment Assessment: Decreased ADL Status;Decreased Endurance;Decreased Self-Care Trans;D ecreased High-Level ADLs;Decreased Safe/Judg during ADL Prognosis: Good;w/Cont [...] of bed, upright tolerance and endurance for ADL s, progress to grooming and other ADLs once extubated ADL Goals Patient Will Perform Grooming: w/ Minimum Assist;in Chair Other ADL Goal 1: Pt to sit edge of bed with minimal assist X3 minutes with stab le vitals Arm Goals Pt Will Perform AROM: [...] edge of bed with therapists' assist despite encoura gement and education on purpose of activity. Pt nodded that she wanted to scoot up in bed and was able to assist with bridging a few times for adjustment of iraheta x and drawsheet and scooting up to top of bed. Moving all four limbs, B wrist re straints in place due to high risk of self-extubation. Positioned patient in bed and all needs in reach. Will continue to follow and evaluate as able and indica yasmeen. Therapist: Louise Hennessy PT Date: 10/25/2018 * Benny Sepulveda MD - 10/25/2018 8:26 AM CDT Infectious Disease Progress Note Name: Etelvina Alonso Today's Date: 10/25/2018 Admission Date: 10/19/2018 Consulted for Cerebritis suspected Type of consult: Co-management w/signed orders Assessment: Strep pneumo bacteremia Bilateral LE wounds due to CABG vein harvest, both tracking deep, L with purulen t drainage Pneumocephalus with surrounding edema on CTA head 10/19/18 at OSH, cerebritis, pos sible developing abscess in basal right temporal lobe on MRI head 10/20/18 Influenza A with possible HCAP Acute hypoxic/hypercarbic respiratory failure -Past concern for biliateral LE wound infection as below -10/16 presented to [facility] with a few days of fever, cough -10/16/18: BC x 2 Strep Pneumo R- Clindamycin and erythromcyin S: ceftriaxone (MARCY 0.094), PCN (MARCY 0.064), levo, TMP/S, vanc. Rapid Flu Ag negative. MRSA nasal screen negative. 10/17/18: Sputum culture: Yeast and normal chelsey -Rapid mental status deterioration, intubated -CTA head 10/19/18 at OSH, small area of intraparenchymal air above the mastoid ai r cells and some edema around that area, with concern for possible infection. Pt was transferred to for further management -10/19: CXR patchy mixed alveolar and interstitial opacities -10/20: Tracheal aspirate: < 10 PMN, < 10 squam, no orgs. Moderate growth no significant chelsey -10/20: LLE swab: Pseudomonas aeruginosa (R - meropenem, ceftazidime, pip/tazo; S - cefepime, tobramycin, gentamicin, ceftolozane/tazobactam and ceftazidime/aviba ctam) -10/20: MRI head w/wo: Ovoid focus of diffusion restriction and partial rim enhanc ement in the basal right temporal lobe overlying the tegmen suggestive of focal cerebritis and developing abscess. Dependent diffusion restricting material wi thin the lateral ventricles suspicious for ventriculitis. Thin complex left po sterolateral convexity subdural fluid collection with diffusion restriction sugg estive of thin subdural empyema. -10/23: JYOTSNA: There [...] mass on the coaptation line of the aor tic valve. Appears to likely be associated with the left coronary cusp. A vegeta tion cannot be ruled out. 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 No stenosis. No regurgitation. Concern for bilateral LE wound infection, [facility] Bilateral vein harvest sites on lower extremities from CABG in [facility] jena, 07/2018 Multiple cultures in [facility], [place]. 09/07/18- Culture from R leg incision - Staph aureus MSSA, enterobacter cloace. 09/19/18 L leg pseudomonas R-Aztreonam Throat August and early September 2018 patient received courses of cefdinir, clindamycin, doxycycline, and trimethoprim/sulfa of unclear duration. CAD s/p CABG in 07/2018 Possible sternal instability -On admission to [facility] possible sternal instability noted, not mentioned on imaging reports at [facility] or OSH -TTE 10/20/18: LVEF 35-40%, Mid To Distal Anteroapical Severe Hypokinesis To Akine sis, anterior mitral valve prolapse, moderate posterior lateral jet MV regurg HTN Depression Possible overdose prior to 10/16 admission -gabapentin, APAP/caffeine/butalbital H/o previous LE rash that improved after CABG Recommendations: -Will continue cefepime given her LLE wound growing Pseudomonas that shows resis tance to meropenem. 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 Will tentatively plan for 2 weeks (from 10/23) of cefepime to treat both the LE wound infections and Strep pneumo b acteremia and suspected HARDWARE ENGINEER abscess. Tentative last day of cefepime would be . -After cefepime she could be transitioned to ceftriaxone 2 g IV BID for meningit is, possible endocarditis and abscess. This would continue until at least 11/12 de pending (4 weeks from 10/16) on the evolution of her brain MRI/possible abscess. -Note plan for f/u MRI 10/26, agree. Will guide need for surgical intervention -Continue oseltamivir for influenza x 10 days total, through 10/30 -Continue fluconazole for thrush for now, may be able to stop in the coming days -Monitor for abx side effects Benny Sepulveda MD Driver License Reviewing Officer Division of Infectious Diseases Interval History Etelvina Alonso is a 58 y.o. female with a PMH significant for CABG (07/2018) who p resented to [facility] in [facility] on 10/16/18 after noting worsening cough and sternal pain from recent sternotomy and non-healing LE graft sites. Transfe rred to [facility] on 10/19/18 for right temporal lobe intraparenchymal air and edema se en on CTA. Afebrile, intubated V/AC, 18, 40%, 5 Dexmedetomidine WBC down to 13.9, Cr 0.36 Cdiff PCR negative Unable to complete ROS due to pt mental status Antimicrobial Start date End date Cefepime 10/16/18-10/18/18, 10/23 active Ceftriaxone 10/18/18 10/20/18 Cefedinir 09/23/18 SEED POTATO CUTTER, uncertain timeframe Doxycycline 100 mg PO BID 09/06/18 SEED POTATO CUTTER, uncertain timeframe [id number] mg PO BID 08/23/18 SEED POTATO CUTTER, uncertain timeframe Fluconazole 150 mg PO QD 08/17/18 SEED POTATO CUTTER, uncertain timeframe Vancomycin 10/20/1810/24 Ampicillin 10/20/18 10/20/18 Fluconazole 10/20/18 active Oseltamivir 10/21/18 active Meropenem 10/20/1810/23 Bactrim 08/17/18 SEED POTATO CUTTER, uncertain timeframe Estimated Creatinine Clearance: 75.2 mL/min (A) (based on SCr of 0.36 mg/dL (L)) . Cardenas Results 10/23 CSF GS/cx: rare neutrophils, no organisms seen, NGTD; WBCs 23 (86% lymphocy christopher, 9% mono/histocytes, 3% neutrophils), RBCs 1, glucose 70, protein 70 10/22 Blood cx: NGTD 10/20 LLE wound swab: Pseudomonas aeruginosa (R - meropenem, ceftazidime, pip/tazo ; S - cefepime, tobramycin, gentamicin, ceftaz/rachele, ceftolozane/tazo) 10/20 Tracheal aspirate: moderate growth no significant chelsey 10/20 Respiratory PCR panel: (+) influenza A 10/20 Blood cx: NGTD Prior cultures 10/16/18 Blood cx (from [facility]): Strep Pneumo R- Clindamycin and erythromcyin Susceptible: ceftriaxone-dilut method 0.094, levofloxacin, penicillin e-dilut m ethod 0.064, trimethoprim, and vancomycin 09/19/18 L leg: [...] (NS) 100 mL IVPB (MB+) 2 g Intra venous Q8H* chlorhexidine gluconate (PERIDEX) 0.12 % solution [...] mg/day patch 1 patch 1 patch Transdermal QDAY(2 1) oseltamivir (TAMIFLU) oral suspension 75 mg 75 mg Per NG tube BID pantoprazole(#) (PROTONIX) suspension 40 mg 40 mg Per NG tube QDAY(21) potassium chloride oral solution 20 mEq 20 mEq Per OG Tube QDAY potassium phosphate 20 mmol in dextrose 5% (D5W) 250 mL IVPB (CENTRAL LINE ONLY) 20 mmol Intravenous ONCE senna/docusate (SENOKOT-S) solution 10 mL 10 mL Per OG Tube BID sertraline (ZOLOFT) tablet 50 mg 50 mg SEE ADMIN INSTRUCTIONS QHS Continuous Infusions: dexmedetomidine (PRECEDEX) 400 mcg/NS 100 ml IV drip 1 mcg/kg/hr (10/25/18 0 427) sodium chloride 0.9 % infusion 75 mL/hr at 10/24/18 2050 PRN and Respiratory Meds:acetaminophen Q6H PRN, calcium gluconate IV PRN (On Ca ll from Rx) AND Ionized Calcium PRN AND Notify Physician Ongoing, fentaN YL citrate PF Q2H PRN, ipratropium/albuterol Q4H PRN, magnesium sulfate PRN AN D [] Magnesium PRN AND Notify Physician Ongoing, oxyCODONE Q4H PRN, pancrelipase 20,000 Units/ sodium bicarbonate 650 mg(#) PRN (Customs Examiner from Rx), potassium chloride SR PRN OR potassium chloride PRN Physical Examination Vital Signs: Last Vital Signs: 24 Hour Ran ge BP: 107/57 (10/26 799) Temp: 37 C [...] R and L extremities from prior vein graftin g with no purulent drainage noted Skin: no [...] ill with concern for sepsis, meningitis, brain abscess . I spent 35 minutes personally reviewing the patient's vital signs, critical care flowsheets, labs, imaging studies, and clinical status, as well as examinin g the patient and providing recommendations regarding management including [facility] diagnostic testing and antimicrobial therapy. * Yessica Burris MD - 10/25/2018 8:14 AM CDT [facility]/HNS PROGRESS NOTE Today's Date: 10/25/2018 Admission Date: 10/19/2018 LOS: 6 days Subjective No acute events overnight. Responds to stimuli. Remains intubated and sedated- d id not tolerate vent weaning yesterday. Objective Vital Signs: Last Filed Vital Signs: 24 Ramiro r Range BP: 107/57 (10/26 799) Temp: 37 [...] recent pneumonia. She is admitted for altered men madalyn status and was found to have pneumocephalus and cerebritis on imaging work u p with concerns for right temporal lobe overlying the tegmen suggestive of focal cerebritis and developing abscess -- Agree with ID c/s and IV antibiotics -- CSF cultures with NGT will continue to follow -- Agree with repeat MRI on 10/26 head to determine evolution of right temporal l obe abscess; will determine need for further surgical interventions based on res ults -- Agree with aggressive medical management Please page for any questions or concerns. Yessica Burris MD [id number] * Beatriz Cardoza, VEGETABLE HARVEST WORKER - 10/25/2018 7:22 AM CDT Neuro Critical [...] history of HTN, HLD, no non-healing leg wo unds, CAD s/p CABG in 07/2018 who presented to an OSH on 10/16 with shortness of b reath and chest pains and found to have a RUL pneumonia. She was intubated on 10/17 2/2 worsening respiratory status and AMS. On 10/19, CTA with R temporal lobe int raparenchymal air and surrounding edema. Transferred to [facility] for escalation of c are. Hospital and ICU course: 10/19: [facility] Neuro/ENT: Altered mental status; Meningitis; right [...] goal: < 160 MAP goal > 65 SEED POTATO CUTTER metoprolol, amiodarone - SEED POTATO CUTTER lisinopril on hold SEED POTATO CUTTER atrovastatin and ASA - SEED POTATO CUTTER plavix on hold Echo today: 35-40%, mitral [...] trials, has been failing due to tachypnea wh en placed on pressure support - will possibly need trach placement with ENT early next week SEED POTATO CUTTER budesonide resumed Influenza virus positive - PaO2 goal >100, Spo2 goal >95%, PCO2 goal 35-40 10/25 chest xray: Mild cardiomegaly and pulmonary venous congestion with small le ft pleural effusion and bibasilar atelectasis. GI: Feeding: NPO, Isosource 1.5 @ 50 ml/hr with 250 ml water every 6 hours - decreas e free water to 150 ml every 6 [...] from admit at OSH with Cr 1.10 3/ Cr now 0.36 Aim for normovolemia - [...] will recheck this afternoon Magnesium goal >2.0, i-John goal > 1.0, Potassium goal >4.0 mEq/L Prophylaxis Review: A)GI: [id number] B) Lines: Yes; Central Line; Indication: Frequent blood draws; Type: Internal jugular C) Urinary Catheter: Yes; Retain salomon due to: Need for accurate Intake and Ou tput D) Antibiotic Usage: Yes; Infection present or suspected: Lung; Pneumonia E) VTE: Pharmacological prophylaxis; SQ Heparin and Mechanical prophylaxis; Seq uential compression device F) Isolation: na G)Seizures: na I) Restraints: Patient assessed for need for restraints. Disposition/Family: Require ICU monitoring Primary service: NEICU Consults: None SUBJECTIVE Etelvina Alonso is a 58 y.o. female. Overnight Events: No new events noted. OBJECTIVE Vital Signs: Last Filed Vital Signs: 24 Hour Ra nge BP: 104/58 (10/25 1200) Temp: 37.2 C (98.9 F) (10/26 1199) Pulse: 69 (10/26 1199) Respirations: 30 PER MINUTE (03/14 1200) SpO2: 100 % (10/25 1200) O2 [...] temperature 37.2 C (98.9 F), height 162.6 c m (64"), weight 53.7 kg (118 lb 6.2 oz), SpO2 100 %. Clarkson coma score: E: 4 - Opens eyes [...] Other Diagnostic Procedures Review: Pertinent radiologic and diag nostic procedures reviewed. I spent 52 minutes managing the care of this patient. Ms Alonso is critically ill with encephalitis, meningitis, right temporal lobe abscess, pneumonia. Cares in cluded: detailed neurologic and systems exam, medication review, laboratory data review and interpretation, electrolyte management, review of available imaging, DVT/PE prophylaxis review, diet review, activity review, mechanical ventilation and sedation management, and coordination of care with consulted teams Beatriz Cardoza APRN Date: 10/25/[phone] * Olvin Vargas, PHARMD - 10/24/2018 11:47 AM CDT Pharmacy Vancomycin Note Subjective: Etelvina Alonso is a 58 y.o. female being treated for cerebritis. Objective: Current Vancomycin Orders Medication Dose Route Frequency vancomycin (VANCOCIN) 1,000 mg in dextrose 5% (D5W) 250 mL IVPB ([id number]) 1 g Intravenous Q12H* vancomycin, pharmacy to [...] drawn prior to 5th dose 1gm IV q 12h and is within goal 10-15 Plan: 1. Continue vancomycin 1gm IV q12h 2. Next scheduled level(s): no repeat level ordered 3. Pharmacy will continue to monitor and adjust therapy as needed. Olvin Vargas, PHARMD 10/24/2018 * Louise Hennessy, PT - 10/24/2018 9:00 AM CDT PHYSICAL THERAPY NOTE Physical Therapy continues to follow this patient. Pt currently intubates, sedat ed, and not following commands. Moving spontaneously only. Not able to participa te in skilled PT intervention at this time. Will continue to monitor and evaluat e/tx when medically appropriate and able to participate [...] vein harvest, both tracking deep, L with purulen t drainage Pneumocephalus with surrounding edema on CTA head 10/19/18 at OSH, cerebritis, pos sible developing abscess in basal right temporal lobe on MRI head 10/20/18 Influenza A with possible HCAP Acute hypoxic/hypercarbic respiratory failure -Past concern for biliateral LE wound infection as below -10/16 presented to [facility] with a few days of fever, cough -10/16/18: BC x 2 Strep Pneumo R- Clindamycin and erythromcyin S: ceftriaxone (MARCY 0.094), PCN (MARCY 0.064), levo, TMP/S, vanc. Rapid Flu Ag negative. MRSA nasal screen negative. 10/17/18: Sputum culture: Yeast and normal chelsey -Rapid mental status deterioration, intubated -CTA head 10/19/18 at OSH, small area of intraparenchymal air above the mastoid ai r cells and some edema around that area, [...] focus of diffusion restriction and partial rim enhanc ement in the basal right temporal lobe overlying the tegmen suggestive of focal cerebritis and developing abscess. Dependent diffusion restricting material wi thin the lateral ventricles suspicious for ventriculitis. Thin complex left po sterolateral convexity subdural fluid collection with diffusion restriction sugg estive of thin subdural empyema. -10/23: JYOTSNA: There [...] mass on the coaptation line of the aor tic valve. Appears to likely be associated with the left coronary cusp. A vegeta tion cannot be ruled out. 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 No stenosis. No regurgitation. Concern for bilateral LE wound infection, [facility] Bilateral vein harvest sites on lower extremities from CABG in [facility] j[place], 07/2018 Multiple cultures in [facility], [place]. 09/07/18- Culture from R leg incision - [...] Mid To Distal Anteroapical Severe Hypokinesis To Akine sis, anterior mitral valve prolapse, moderate posterior lateral jet MV regurg HTN Depression Possible overdose prior to 10/16 admission -gabapentin, APAP/caffeine/butalbital H/o previous LE rash that improved after CABG Recommendations: -Will continue cefepime given her LLE wound growing Pseudomonas that shows resis tance to meropenem. 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 Will tentatively plan for 2 weeks of cefepime to treat both the LE wound infections and Strep pneumo bacteremia an d suspected HARDWARE ENGINEER abscess. Tentative last day of cefepime would be 11/05 -After cefepime she could be transitioned to ceftriaxone 2 g IV BID for meningit is, possible endocarditis and abscess. This would continue until at least 11/12 de pending on the evolution of her brain MRI/possible abscess. -Will discontinue vancomycin (ordered) -Discussed with micro regarding susceptibility testing on the Pseudomonas with c eftolozane/tazobactam and ceftazidime/avibactam -Note plan for f/u MRI -Continue oseltamivir for influenza A x at least 5 days (10/25), might be reasona ble to consider x 10 days given severity of overall illness (10/30) -Continue fluconazole for thrush for now, may be able to stop in the coming days -Monitor for abx side effects Shan Walker, Infectious Diseases Fellow Pager # [phone] Discussed with attending on service, Dr. Sepulveda I have seen, personally evaluated, and discussed the patient's care with Dr. Maria mahmood, Infectious Diseases Fellow. I agree with the subjective notations, object chema findings and agree with the plan of care as documented in this note with anil ts made by me as necessary. Benny Sepulveda MD Driver License Reviewing Officer Division of Infectious Diseases Interval History Etelvina Alonso is a 58 y.o. female with a PMH significant for CABG (07/2018) who p resented to [facility] in [facility] on 10/16/18 after noting worsening cough and sternal pain from recent sternotomy and non-healing LE graft sites. Transfe rred to [facility] on 10/19/18 for right temporal lobe intraparenchymal air and edema se en on CTA. Seen this AM intubated and sedated. Underwent LP yesterday. JYOTSNA also showed ec hogenic mass on the AV. Afebrile overnight (Tmax 100.2) WBC 16.3 Cr 0.37 I/O: 3587/3705 (-117) Unable to complete ROS due to pt mental status Antimicrobial Start date End date Cefepime 10/16/18-10/18/18, 10/23 active Ceftriaxone 10/18/18 10/20/18 Cefedinir 09/23/18 SEED POTATO CUTTER, uncertain timeframe Doxycycline 100 mg PO BID 09/06/18 SEED POTATO CUTTER, uncertain timeframe [id number] mg PO BID 08/23/18 SEED POTATO CUTTER, uncertain timeframe Fluconazole 150 mg PO QD 08/17/18 SEED POTATO CUTTER, uncertain timeframe Vancomycin 10/20/1810/24 Ampicillin 10/20/18 10/20/18 Fluconazole 10/20/18 active Oseltamivir 10/21/18 active Meropenem 10/20/1810/23 Bactrim 08/17/18 SEED POTATO CUTTER, uncertain timeframe Estimated Creatinine Clearance: 73.9 mL/min (A) (based on SCr of 0.37 mg/dL (L)) . Cardenas Results 10/23 CSF GS/cx: rare neutrophils, no organisms seen, NGTD; WBCs 23 (86% lymphocy christopher, 9% mono/histocytes, 3% neutrophils), RBCs 1, glucose [...] Susceptible: ceftriaxone-dilut method 0.094, levofloxacin, penicillin e-dilut m ethod 0.064, trimethoprim, and vancomycin 09/19/18 L leg: [...] (NS) 100 mL IVPB (MB+) 2 g Intra venous Q8H* chlorhexidine gluconate (PERIDEX) 0.12 % solution [...] mg/day patch 1 patch 1 patch Transdermal QDAY(2 1) oseltamivir (TAMIFLU) oral suspension 75 mg 75 [...] in dextrose 5% (D5W) 250 mL IVPB (Sadi0Asn) 1 g I ntravenous Q12H* Continuous Infusions: propofol (DIPRIVAN) 10 mg/mL IV infusion 25 mcg/kg/min (10/23/18 1830) sodium chloride 0.9 % infusion 75 mL/hr at 10/24/18 0502 PRN and Respiratory Meds:acetaminophen Q6H PRN, calcium gluconate IV PRN (On Ca ll from Rx) AND Ionized Calcium PRN AND Notify Physician Ongoing, fentaN YL citrate PF Q2H PRN, ipratropium/albuterol Q4H PRN, magnesium sulfate PRN AN D Magnesium PRN AND Notify Physician Ongoing, oxyCODONE Q4H PRN, pancrelip ase 20,000 Units/ sodium bicarbonate 650 mg(#) PRN (Customs Examiner from Rx), potassium chloride SR PRN OR potassium chloride PRN, [DISCONTINUED] vancomycin IVPB Q8H* AND vancomycin, pharmacy to manage Per Pharmacy Physical Examination Vital Signs: Last Vital Signs: 24 Hour Ran ge BP: 133/82 (10/24 699) Temp: 37 C [...] R and L extremities from prior vein graftin g with no purulent drainage noted Skin: no [...] the coaptation line of the aortic valve. A ppears to likely be associated with the left coronary cusp. A vegetation cannot be ruled out. The appearance could also favor a possible small papillary fibro-e lastoma. No stenosis. No regurgitation. 2. Moderate MR secondary to anterior leaflet (A2 scallop) prolapse 3. Mild TR 4. There was no thrombus visualized in the left atrial appendage utilizing multi ple views and color flow Doppler 5. Patent foramen ovale present with persistent left to right shunting demonstra yasmeen by color and pulse wave Doppler. Bubble studies failed to show any evidence of right to left shunt. 6. Normal left ventricle size with moderately reduced systolic function, EF ~ 40 -45%, poor endocardial definition 7. Normal right ventricle size and qualitative function 8. Mild LA enlargement. Lipomatous hypertrophy of the interatrial septum is pre sent. 9. Mild plaquing in the descending and transverse thoracic aorta 10. No pericardial effusion Compared with the prior TTE study on 10-20-2018, there has been no significant int erval changes. The patient is critically ill with concern for septis, meningitis, brain abscess . I spent 35 minutes personally reviewing the patient's vital signs, critical care flowsheets, labs, imaging studies, and clinical status, as well as examinin g the patient and providing recommendations [facility] and antimicrobial therapy. * Pankaj [...] history of HTN, HLD, no non-healing leg wo unds, CAD s/p CABG in 07/2018 who presented to an OSH on 10/16 with shortness of b reath and chest pains and found to have a RUL pneumonia. She was intubated on 10/17 2/2 worsening respiratory status and AMS. On 10/19, CTA with R temporal lobe int raparenchymal air and surrounding edema. Transferred to [facility] for escalation of c are. Hospital and ICU course: 10/19: [facility] Neuro: Altered mental status: encephalopathic vs sepsis; Q1 neurochecks Keppra 500 mg BID Lumbar puncture 10/24 Repeat MRI maybe on Monday PT/OT Sedation/Pain Management: D/c propofol Start on precedex PRN fentanyl, oxycodone and tylenol available - Assess for delirium daily Cardiac: HTN; HLD; CAD s/p CABG in 07/2018; Paroxysmal AF SBP goal: < 160 MAP goal > 65 SEED POTATO CUTTER metoprolol, amiodarone - SEED POTATO CUTTER lisinopril on hold SEED POTATO CUTTER atrovastatin and ASA - SEED POTATO CUTTER plavix on hold Echo today: 35-40%, mitral [...] opacities, which may represent pneumonia and/or edema. SEED POTATO CUTTER budesonide resumed Influenza virus positive Talk to [...] + Step pneumo bacteremia; Non-healing wounds on fr equent Abx Afebrile ID consult appreciate recs Trend daily CBC Continue cefepime and vanc Tamaful Aim for normothermia, Temp <38.3 celsius, normothermia protocol if febrile Renal: Trend daily BMP Resolved MARGO from admit at OSH with Cr 1.10 3/ Intake/Output Summary (Last 24 hours) at 10/24/2018 [...] Electrolyte protocol in place Magnesium goal >2.0, i-John goal > 1.0, Potassium goal >4.0 mEq/L Prophylaxis Review: A)GI: [id number] B) Lines: Yes; Central Line; Indication: Frequent blood draws; Type: Internal jugular C) Urinary Catheter: Yes; Retain salomon due to: Need for accurate Intake and Ou tput D) Antibiotic Usage: Yes; Infection present or suspected: Lung; Pneumonia E) VTE: Pharmacological prophylaxis; SQ Heparin and Mechanical prophylaxis; Seq uential compression device F) Isolation: na G)Seizures: na [...] pneumothorax, had lung surgery in hospital at [place] Restless leg syndrome Past Surgical History: Procedure Laterality Date HX CORONARY ARTERY BYPASS GRAFT HYSTERECTOMY OOPHORECTOMY ORTHOPEDIC SURGERY ligament repair in december 2017 VASCULAR SURGERY Family History Problem Relation Age of Onset Psoriasis Sister Heart Attack Sister maker 95% blocked s/p stenting Diabetes Sister Heart Disease Brother CT in 90s, with several stents Social History Social History Narrative Has 2 children and 2 grandchildren Son lives in [place] She is , to Leonidas, for 30 years 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 Allergies: Patient has no known allergies. Medications Prior to Admission Medication Sig amiodarone (CORDARONE) 200 mg tablet Take 200 mg by mouth daily. Take with f ood. aspirin 81 mg chewable tablet Chew 81 mg by mouth daily. Take with food. atorvastatin (LIPITOR) 20 mg tablet Take 20 mg by mouth at bedtime daily. budesonide respule (PULMICORT) 0.5 mg/2 mL nebulizer solution Inhale 1 mg so lution by nebulizer as directed twice daily. clopiDOGrel (PLAVIX) 75 mg tablet Take 75 mg by mouth daily. furosemide (LASIX) 20 mg tablet Take 20 mg by mouth every morning. HYDROcodone/acetaminophen (NORCO) 5/325 mg tablet Take 1 tablet by mouth junie ry 6 hours as needed for Pain ipratropium/albuterol [...] Apply 1 patch to top of skin a s directed every 24 hours. Rotate patch location. oxyCODONE/acetaminophen (PERCOCET; ENDOCET; ROXICET) 5/325 mg tablet Take 1 tablet by mouth every 6 hours as needed for Pain polyethylene glycol 3350 (MIRALAX) 17 g packet Take 17 g by mouth twice weston y. potassium chloride SR (K-DUR) 20 mEq tablet Take 20 mEq by mouth daily. Take with a meal and a full glass of water. sertraline (ZOLOFT) 50 mg tablet Take 50 mg by mouth at bedtime daily. Review of Systems: Review of systems not obtained from patient due to patient factors. OBJECTIVE Vital Signs: Last Filed Vital Signs: 24 Hour Ra nge BP: 131/75 (10/24 599) Temp: 37 C [...] Therapy: Yes: Weaning readiness screen (RT Only):: Impl ement protocol Weaning readiness screen Met (RT Only):: [...] (116 lb 6.5 oz), SpO2 99 %. Clarkson coma score: 7+T E: 2 - Opens [...] normal, atraumatic, no cyanosis. Mild 1+, non-pitting d ependent eyelid/facial edema, 1-2+ dependent edema in hands and feet. Skin: Skin color, texture, turgor normal. No rashes. Non healing leg wounds. Point of Care Testing: (Last 24 hours): Glucose: (!) 115 (10/24/18 0200) Lab Review: Pertinent labs reviewed Radiology and Other Diagnostic Procedures Review: Pertinent radiologic and diag nostic procedures reviewed. Pankaj Bunn MD Date: 10/24/[phone] Associated attestation - Farhad Perez MD - 10/25/2018 12:26 AM CDT N:Meningits Wbc 23, lymphocytic, obtained after antibiotics had been used for an extended du ration MRI without discrete enough abscess collection for surgical drainage. Small enc ephalocoele may be revisited after clinical improvement. Will repeat MRI at one week on 10/26 to assist with future planning if clinically indicated Previous leg wounds from vein harvest site and previous pneumonia and previous s pneumoniae bacteremia Improving clinically. She now has eye opening and moving all extremities - some what without directed purpose. Not quite following commands. Continue seizure prophylaxis CV: flail sternum Recent emergent CABG at [facility] in [facility]. 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 Afterward would sleep in a chair, SOB when flat. Would ambulate around the apartment, but not outside. Would "do dishes" and latricia se grandchildren. - sounds like some residual dyspea. She has been hospitalize d frequently for dyspnea dn pneumonia since the surgery and her can not recall the separate admissions Continue amiodarone, asa, atorvastatin. Will try to get outside records from he r surgery to determine if she still requires plavix - this has been held by me t his admission since her bypass On home lasix 20 EF 35-40% Resp: failure to wean Her mental status has improved to the point today that we may consider weaning f rom the ventilator During pressure support trials becomes tachypneic RR>40 immediately Flail sternum appears to be a strong factor. Will consult cts for possible sternal fixation for flail sternum Previous pneumonia Currently with minimal secretions, good oxygenation Heavy smoker - has been smoking 1ppd since surgery COPD I discussed trach with her and he is amenable to this after we investiga te sternal fixation- he will be travelling to [facility] tomorrow but will ret urn the day and will be available by phone. She [...] will be able to place PICC for snf abx. Continue meropenem and vancomycin Fluconazole for thrush Oseltamivir for + influenza Persistent leukocytosis, low grade fever, but neurologic improvement. Endo: normoglycemic NEICU Attending [place] Man Attestation Etelvina Alonso is a 58 y.o. y.o. female admitted 10/19/2018 to the NEICU critically ill with meningitis, encephalopathy, subdural empyema, respiratory failure, flai l sternum, leg wound infection, recent bacteremia, influenza pneumonia, thrush a nd is receiving critical care services for the treatment of this primary diagnos is and the prevention and management of secondary injuries. I have reviewed the events, seen, personally examined, fully evaluated, and disc ussed this patient with NeuroICU team during the team rounds. I agree with the o bjective findings and agree with the plan of care as documented by the resident with the exceptions noted. This patient exhibits injury of at least one organ system and there is high prob ability of imminent or life-threatening deterioration in patient's condition. A s such, there is a need for continued medical attention including frequent neuro logical examination, frequent vital signs, and the cares appropriate for an ICU. I spent 85 minutes providing and personally directing neurological care services . Family and patient were counseled about the diagnosis, treatment plan, and pro gnosis. Farhad Perez MD Date: 10/25/2018 * Marina Gudino APRN - 10/23/2018 2:31 PM CDT Brief neurosurgery note: Case reviewed with Dr. Sanchez this AM, at this time we continue to support agg ressive medical management. We remain available if her conditions changes and ou r services are required. Discussed with the Neuro ICU team, and they will re-eng age as needed. We will sign off at this time. Marina Gudino APRN Neurosurgery Call Pager [phone] * Juvenal Gottlieb MD - 10/23/2018 7:24 AM CDT CLEMENTINE/HNS PROGRESS NOTE Today's Date: 10/23/2018 Admission Date: 10/19/2018 LOS: 4 days Subjective No acute events overnight. Patient resting comfortably in bed. Remains intubated and sedated. Objective Vital Signs: Last Filed Vital Signs: 24 Ramiro r Range BP: 125/72 (10/23 699) Temp: 37.4 [...] Dr. Don discussed these findings with Raquel fam APRN, by telephone 10/20/2018 4:39 PM. Approved by Abiel Don M.D. on 9 4:40 PM By my electronic signature, I attest that I have personally reviewed t he images for this examination and formulated the interpretations and opinions e xpressed in this report Finalized by Mayank Price M.D. on 10/20/2018 4:43 PM. Dic tated by Abiel Don M.D. on 10/20/2018 4:39 PM. Result Date: 10/20/2018 EXAM: MRI BRAIN (SKULL BASE PROTOCOL) HISTORY: 58-year-old female, altered ment al status. TECHNIQUE: Multiplanar and multisequence MR imaging of the head was p erformed. This was done both before and after the administration of MultiHanceco ntrast. COMPARISON: Same-day CT head and IACs. FINDINGS: Multiple sequences are degraded by repetitive motion artifact. The known areas of tegmen thinning and d ehiscence are demonstrated on previous CT exams. There is an ovoid focus of rest ricted diffusion within the right temporal lobe measuring up to 1.3 cm with asso ciated FLAIR hyperintensity (series 6, image 31 and series 18, image 8) and part ial rim enhancement. Mild surrounding FLAIR hyperintensity is noted. Small foci of increased DWI and ADC signal (T2 shine through) are seen within the right eugenio trum semiovale (series 6, images 40 and 41) compatible with subacute to chronic lacunar infarct. No evidence of acute ischemic infarct. Additional minimal foci of FLAIR hyperintensity in the cerebral white matter, likely age-appropriate. Th e ventricles are normal in size. There is abnormal FLAIR hyperintensity dependen tly layering bilaterally within the occipital horns of the lateral ventricles wi th associated restricted diffusion. Redemonstration of diffuse arachnoid pits wi th visualization of a small right anterior middle cranial fossa/sphenoid wing en cephalocele (series 12 image 34, series 14 image 21). Nearly empty sella appeara nce is again noted. There is a thin left posterior cerebral convexity FLAIR hype rintense fluid collection which demonstrates restricted diffusion (series 6, janice ge 33). There is associated thin dural enhancement along the left temporal and l ateral cerebral convexity. The central intracranial arterial flow voids are pres erved. Dedicated skull base thin section T2 sequence is essentially nondiagnosti c due to motion. Bilateral mastoid and middle ear effusions with associated enha ncement. Diffuse paranasal sinus mucosal thickening and secretions with moderate air-fluid levels in the maxillary sinuses which demonstrate diffusion restricti on. Dependent fluid noted within the nasopharynx and oropharynx with partially v isualized endotracheal tube. Diffuse symmetric prominence and ill-defined edema within the parotid, submandibular, and sublingual glands with associated enhance ment. The globes and orbits are grossly unremarkable, although, partially obscur ed due to motion on axial imaging. 1. Ovoid focus of diffusion restriction and partial rim enhancement in the basa l right temporal lobe overlying the tegmen suggestive of focal cerebritis and de veloping abscess. 2. Dependent diffusion restricting material within the latera l ventricles suspicious for ventriculitis. 3. Thin complex left posterolateral convexity subdural fluid collection with diffusion restriction suggestive of thi n subdural empyema. 4. Redemonstration of bilateral mastoid and middle ear effu sions with associated enhancement compatible with otomastoiditis. Diffuse acute- appearing paranasal sinusitis. Areas of tegmen thinning and dehiscence are concetta r demonstrated on comparison CTs. 5. Redemonstration of extensive arachnoid pit s with interval visualization of a small right sphenoid wing encephalocele. Give n partially empty sella appearance, findings may represent chronic intracranial hypertension. 6. Diffuse symmetric prominence, ill-defined edema, and enhanceme nt of the salivary glands suggestive of sialoadenitis. By my electronic signatur e, I attest that I have personally reviewed the images for this examination and formulated the interpretations and opinions expressed in this report Ct Head Wo Contrast Result Date: 10/20/2018 CT HEAD WITHOUT CONTRAST HISTORY: 58 years old Female, intraparenchymal air TECH NIQUE: CT images of the head were acquired without intravenous contrast. COMPARI SON: Outside CTA from one day prior. FINDINGS: BRAIN PARENCHYMA: There is focal hypodensities in loss of victoria-white differentiation within the right inferior te mporal lobe adjacent to a small punctate area of intraparenchymal air (series 30 7B image 55). There is thinning and irregularity of the adjacent tegmen mastoide um and tegmen tympani with right middle ear and mastoid effusion. Bony detail is limited by technique and mild patient motion. Small right rowley radiata white matter hypodensity. No mass effect or midline shift. No intracranial hemorrhage. VENTRICLES/EXTRA-AXIAL SPACES: No hydrocephalus or extra-axial fluid collection s. EXTRACRANIAL STRUCTURES: Extensive arachnoid pits within the bilateral spheno id wings with the aforementioned bony thinning and irregularity over the roof of the right temporal bone. Diffuse paranasal sinus opacification with air-fluid l evels in the sphenoid sinuses and mastoid air cells. High-density structures ove r both globes. 1. Right inferior temporal lobe parenchymal edema with adjacent intracranial ga s and bony irregularity of the tegmen mastoideum and tegmen tympani highly suspi cious for temporal bone skull base defect with adjacent cerebritis. Evaluation o f the osseous structures limited by technique and mild patient motion. CT of the temporal bones as well as skull base MRI would offer more detailed characteriza tion of these areas. 2. Extensive bilateral sphenoid wing arachnoid pits withou t definite skull base dehiscence. The arachnoid pits and an empty sella turcica can be seen in intracranial hypertension. 3. Symmetric although irregular hypod ensity areas overlying the sclera of both globes which may represent ocular medi john devices or scleral calcifications. Finalized by RAYMOND ALEJANDRO M.D. on 10/20 7:56 AM. Dictated by RAYMOND ALEJANDRO M.D. on 10/20/2018 7:[address] Int Aud Canal Wo Contrast Result Date: 10/21/2018 CT TEMPORAL BONES WITHOUT CONTRAST HISTORY: 58 years old Female, head trauma. TE CHNIQUE: CT images of the temporal bones were acquired without contrast. COMPARI SON: CT head from earlier the same day. FINDINGS: RIGHT External Auditory Canal: Patent. Tympanic Membrane: Intact. Mastoid Air Cells: Well-formed and near comp letely opacified. No bony destruction. Multiple areas of thinning or possible de hiscence of the tegmen mastoideum. No superficial soft tissue inflammatory webster es are identified surrounding the mastoid portion of the temporal bone. Middle E ar Cavity: Complete opacification within the epitympanum, mesotympanum, or hypot ympanum. Numerous areas of irregularity and probable dehiscence of the tegmen ty mpani. Ossicles: Normal alignment. Possible subtle irregularities of the body an d short process of the incus. Labyrinthine Structures: Cochlea, vestibule, and s emicircular canals have normal morphology. The oval window and round window are patent. The cochlear aperture is patent. No semicircular canal dehiscence. Otic Capsule: Normal mineralization. Vestibular Aqueduct: Normal size. Facial Nerve: The fallopian canal has normal course and appearance. Internal Auditory Canal: N ormal size. Vascular: The sigmoid plate is intact. The petrous carotid canal has a normal course. Petrous apex: Near complete opacification of pneumatized cale us apex with thinning and irregularity of the roof of the petrous apex. LEFT Ext ernal Auditory Canal: Patent. Tympanic Membrane: Intact. Mastoid Air Cells: Well -formed and demonstrate patchy opacification. No bony destruction. Numerous area s of bony thinning or possible dehiscence of the tegmen mastoideum.. No superfic ial soft tissue inflammatory changes are identified surrounding the mastoid port ion of the temporal bone. Middle Ear Cavity: Partial opacification within the ep itympanum, mesotympanum, or hypotympanum. Probable thinning of the tegmen tympan i. The scutum is well formed. Ossicles: Normal alignment. No erosions. Labyrinth ine Structures: Cochlea, vestibule, and semicircular canals have normal morpholo gy. The oval window and round window are patent. The cochlear aperture is patent . No semicircular canal dehiscence. Otic Capsule: Normal mineralization. Vestibu lar Aqueduct: Normal size. Facial Nerve: The fallopian canal has normal course a nd appearance. Internal Auditory Canal: Normal size. Vascular: The sigmoid plate is intact. The petrous carotid canal has a normal course. OTHER: Extensive bila teral middle cranial fossa arachnoid pits. Right sphenoid wing cephalocele is be tter identified on same day MRI. Thinning of the left lateral sphenoid sinus wal l without definite cephalocele. Focal right inferior temporal lobe hypodensity i s redemonstrated. Extensive paranasal sinus mucosal thickening and air-fluid lev els. 1. Extensive thinning and numerous areas of probable dehiscence of the right te gmen tympani and tegmen mastoideum including immediately below the focal hypoden sity in the right inferior temporal lobe. 2. Complete opacification of the righ t middle ear, partial opacification of the right mastoid air cells, and opacific ation of the right petrous apex air cells which may partially related to CSF garcia k. A passive or infectious effusion could appear similar, however, there is no o bvious bony destruction or inflammatory changes in the superficial scalp soft ti ssues. 3. Slight irregularity of the body and short process of the right incus which may represent mild tympanosclerosis. 4. Numerous areas of thinning or pos sible dehiscence of the left tegmen tympani and tegmen mastoideum although sligh tly less impressive than the right temporal bone. 5. Partial opacification of t he left middle ear cavity and mastoid air cells without bony destruction or supe rficial inflammatory change. 6. Extensive bilateral sphenoid wing arachnoid pit s with right sphenoid cephalocele and thinning of the lateral wall the left sphe noid sinus. 7. Near complete opacification of the paranasal sinuses with air-fl uid levels. 8. Please see same-day MRI for description of intracranial abnormal ities. Finalized by RAYMOND ALEJANDRO M.D. on 10/21/2018 7:47 AM. Dictated by RAYMOND ALEJANDRO M.D. on 10/21/2018 7:21 AM. Patient Active Problem List Diagnosis Date Noted Altered mental status, unspecified 10/20/2018 Pneumonia due to infectious organism 10/19/2018 Acute respiratory failure with hypoxia and hypercapnia (HCC) 10/19/2018 Assessment/Plan: Etelvina Alonso is a 58 y.o. female with complex medical history including CABG and nonhealing wounds on legs and recent pneumonia. She is admitted for altered men madalyn status and was found to have pneumocephalus and cerebritis on imaging work u p. There is concern for multiple skull base defects and/or skull base thinning o gómez bilateral tegmen and right sphenoid wing. Exam does not demonstrate acute ot itis or sinuitis at this time. -- Agree with ID c/s and IV antibiotics -- Plan for discussion with neurosurgery team today about timing of repeat imagi ng and potential for surgical intervention. ENT team will be available for surgi john intervention with neurosurgery if there is need. Please page for any questions or concerns. Juvenal Gottlieb MD Otolaryngology Resident, [phone] * Pankaj Bunn MD - 10/23/2018 7:21 [...] history of HTN, HLD, no non-healing leg wo unds, CAD s/p CABG in 07/2018 who presented to an OSH on 10/16 with shortness of b reath and chest pains and found to have a RUL pneumonia. She was intubated on 10/17 2/2 worsening respiratory status and AMS. On 10/19, CTA with R temporal lobe int raparenchymal air and surrounding edema. Transferred to [facility] for escalation of c are. Hospital and ICU course: 10/19: Transferred from OSH to [facility] Neuro: Altered mental status: encephalopathic vs sepsis; CT head 10/20: Concerning for possible cerebritis MRI Brain: Concerns for possible cerebritis of right temporal lobe and developin g abscess, thin subdural empyema, mastoiditis Neurosurgery consult and ENT consult: will watch for now, continue with medical management Q1 neurochecks Keppra 500 mg BID Lumbar puncture PT/OT Sedation/Pain Management: Propofol PRN fentanyl, oxycodone and tylenol available - Assess for delirium daily Cardiac: HTN; HLD; CAD s/p CABG in 07/2018; Paroxysmal AF SBP goal: < 160 MAP goal > 65 SEED POTATO CUTTER metoprolol, amiodarone - SEED POTATO CUTTER lisinopril on hold SEED POTAT[employer] CUTTER atrovastatin and ASA - SEED POTATO CUTTER plavix on hold Echo today: 35-40%, mitral valve borderline prolapse and regurg no vegetations Plan for JYOTSNA Respiratory: RUL Pneumonia Date of Intubation: 10/17 Reason: Airway protection V/AC: - CXR: Increased lung volumes with persistent patchy mixed alveolar and interstitial opacities, which may represent pneumonia and/or edema. SEED POTATO CUTTER budesonide resumed Influenza virus positive Talk to [...] + Step pneumo bacteremia; Non-healing wounds on fr equent Abx Afebrile 10/16 - blood cultures positive [...] Electrolyte protocol in place Magnesium goal >2.0, i-John goal > 1.0, Potassium goal >4.0 mEq/L Prophylaxis Review: A)GI: [id number] B) Lines: Yes; Central Line; Indication: Frequent blood draws; Type: Internal jugular C) Urinary Catheter: Yes; Retain salomon due to: Need for accurate Intake and Ou tput D) Antibiotic Usage: Yes; Infection present or suspected: Lung; Pneumonia E) VTE: Pharmacological prophylaxis; SQ Heparin and Mechanical prophylaxis; Seq uential compression device F) Isolation: na G)Seizures: na [...] pneumothorax, had lung surgery in hospital at [facility] Restless leg syndrome Past Surgical History: Procedure Laterality Date HX CORONARY ARTERY BYPASS GRAFT HYSTERECTOMY OOPHORECTOMY ORTHOPEDIC SURGERY ligament repair in december 2017 VASCULAR SURGERY Family History Problem Relation Age of Onset Psoriasis Sister Heart Attack Sister maker 95% blocked s/p stenting Diabetes Sister Heart Disease Brother CT in , with several stents Social History Social History Narrative Has 2 children and 2 grandchildren Son lives in [place] She is , to Leonidas, for 30 years 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 Allergies: Patient has no known allergies. Medications Prior to Admission Medication Sig amiodarone (CORDARONE) 200 mg tablet Take 200 mg by mouth daily. Take with f ood. aspirin 81 mg chewable tablet Chew 81 mg by mouth daily. Take with food. atorvastatin (LIPITOR) 20 mg tablet Take 20 mg by mouth at bedtime daily. budesonide respule (PULMICORT) 0.5 mg/2 mL nebulizer solution Inhale 1 mg so lution by nebulizer as directed twice daily. clopiDOGrel (PLAVIX) 75 mg tablet Take 75 mg by mouth daily. furosemide (LASIX) 20 mg tablet Take 20 mg by mouth every morning. HYDROcodone/acetaminophen (NORCO) 5/325 mg tablet Take 1 tablet by mouth junie ry 6 hours as needed for Pain ipratropium/albuterol [...] Apply 1 patch to top of skin a s directed every 24 hours. Rotate patch location. oxyCODONE/acetaminophen (PERCOCET; ENDOCET; ROXICET) 5/325 mg tablet Take 1 tablet by mouth every 6 hours as needed for Pain polyethylene glycol 3350 (MIRALAX) 17 g packet Take 17 g by mouth twice weston y. potassium chloride SR (K-DUR) 20 mEq tablet Take 20 mEq by mouth daily. Take with a meal and a full glass of water. sertraline (ZOLOFT) 50 mg tablet Take 50 mg by mouth at bedtime daily. Review of Systems: Review of systems not obtained from patient due to patient factors. OBJECTIVE Vital Signs: Last Filed Vital Signs: 24 Hour [facility] BP: 125/72 (10/23 699) Temp: 37.4 C [...] Therapy: Yes: Weaning readiness screen (RT Only):: Impl ement protocol Weaning readiness screen Met (RT Only):: [...] (116 lb 6.5 oz), SpO2 98 %. Clarkson coma score: 7+T E: 2 - Opens [...] normal, atraumatic, no cyanosis. Mild 1+, non-pitting d ependent eyelid/facial edema, 1-2+ dependent edema in hands and feet. Skin: Skin color, texture, turgor normal. No rashes. Non healing leg wounds. Point of Care Testing: (Last 24 hours): Glucose: (!) 121 (10/23/18 0325) Lab Review: Pertinent labs reviewed Radiology and Other Diagnostic Procedures Review: Pertinent radiologic and diag nostic procedures reviewed. Pankaj Bunn MD Date: 10/23/[phone] Associated attestation - Farhad Perez MD - 10/23/2018 6:46 PM CDT NEICU Attending Rollway Man Attestation Etelvina Alonso is a 58 y.o. y.o. female admitted 10/19/2018 to the NEICU critically ill with meningitis and is receiving critical care services for the treatment of this primary diagnosis and the prevention and management of secondary injuries. I have reviewed the events, seen, personally examined, fully evaluated, and disc ussed this patient with NeuroICU team during the team rounds. I agree with the o bjective findings and agree with the plan of care as documented by the resident with the exceptions noted. This patient exhibits injury of at least one organ system and there is high prob ability of imminent or life-threatening deterioration in patient's condition. As such, there is a need for continued medical attention including frequent neur ological examination, frequent vital signs, and the cares appropriate for an ICU . I spent 55 minutes providing and personally directing neurological care services . Family and patient were counseled about the diagnosis, treatment plan, and pro gnosis. Farhad Perez MD Date: 10/23/2018 * Benny Sepulveda MD - 10/23/2018 6:42 AM CDT Infectious Disease Progress Note Name: Etelvina Alonso Today's Date: 10/23/2018 Admission Date: 10/19/2018 Consulted for Cerebritis suspected Type of consult: Co-management w/signed orders Assessment: Strep pneumo bacteremia Bilateral LE wounds due to CABG vein harvest, both tracking deep, L with purulen t drainage Pneumocephalus with surrounding edema on CTA head 10/19/18 at OSH, cerebritis, pos sible developing abscess in basal right temporal lobe on MRI head 10/20/18 Influenza A with possible HCAP Acute hypoxic/hypercarbic respiratory failure -Past concern for biliateral LE wound infection as below -10/16 presented to [facility] with a few days of fever, cough -10/16/18: BC x 2 Strep Pneumo R- Clindamycin and erythromcyin S: ceftriaxone (MARCY 0.094), PCN (MARCY 0.064), levo, TMP/S, vanc. Rapid Flu Ag negative. MRSA nasal screen negative. 10/17/18: Sputum culture: Yeast and normal chelsey -Rapid mental status deterioration, intubated -CTA head 10/19/18 at OSH, small area of intraparenchymal air above the mastoid ai r cells and some edema around that area, [...] focus of diffusion restriction and partial rim enhanc ement in the basal right temporal lobe overlying the tegmen suggestive of focal cerebritis and developing abscess. Dependent diffusion restricting material wi thin the lateral ventricles suspicious for ventriculitis. Thin complex left po sterolateral convexity subdural fluid collection with diffusion restriction sugg estive of thin subdural empyema. Concern for bilateral LE wound infection, [facility] Bilateral vein harvest sites on lower extremities from CABG in [place], 07/2018 Multiple cultures in [facility], [place]. 09/07/18- Culture from R leg incision - [...] Mid To Distal Anteroapical Severe Hypokinesis To Akine sis, anterior mitral valve prolapse, moderate posterior lateral jet MV regurg HTN Depression Possible overdose prior to 10/16 admission -gabapentin, APAP/caffeine/butalbital H/o previous LE rash that improved after CABG Recommendations: -Will change meropenem to cefepime given her LLE wound growing Pseudomonas that shows resistance to meropenem -Keep vancomycin trough at 10-15 - > This is targeting LE infections, not the HARDWARE ENGINEER infection. HARDWARE ENGINEER infection likely S pneumo which is well [...] Shan Walker, Infectious Diseases Fellow Pager # [phone] Discussed with attending on service, Dr. Sepulveda I have seen, personally evaluated, and discussed the patient's care with Dr. Maria mahmood, Infectious Diseases Fellow. I agree with the subjective notations, object chema findings and agree with the plan of care as documented in this note with anil ts made by me as necessary. Benny Sepulveda MD Driver License Reviewing Officer Division of Infectious Diseases Interval History Etelvina Alonso is a 58 y.o. female with a PMH significant for CABG (07/2018) who p resented to [facility] in [facility] on 10/16/18 after noting worsening cough and sternal pain from recent sternotomy and non-healing LE graft sites. Transfe rred to [facility] on 10/19/18 for right temporal lobe intraparenchymal air and edema se en on CTA. Seen this AM intubated and sedated. Leukocytosis overall unchanged. Afebrile overnight (Tmax 100.1) WBC 16.9 Cr 0.3 I/O: 4665/2275 (+2390) Unable to complete ROS due to pt mental status Antimicrobial Start date End date Cefepime 10/16/18-10/18/18, 10/23 active Ceftriaxone 10/18/18 10/20/18 Cefedinir 09/23/18 SEED POTATO CUTTER, uncertain timeframe Doxycycline 100 mg PO BID 09/06/18 SEED POTATO CUTTER, uncertain timeframe [id number] mg PO BID 08/23/18 SEED POTATO CUTTER, uncertain timeframe Fluconazole 150 mg PO QD 08/17/18 SEED POTATO CUTTER, uncertain timeframe Vancomycin 10/20/18 active Ampicillin 10/20/18 10/20/18 Fluconazole 10/20/18 active Oseltamivir 10/21/18 active Meropenem 10/20/1810/23 Bactrim 08/17/18 SEED POTATO CUTTER, uncertain timeframe Estimated Creatinine Clearance: 73.9 mL/min [...] Prior cultures 10/16/18 Blood cx (from [facility]): Strep Pneumo R- Clindamycin and erythromcyin Susceptible: ceftriaxone-dilut method 0.094, levofloxacin, penicillin e-dilut m ethod 0.064, trimethoprim, and vancomycin 09/19/18 L leg: [...] mg/day patch 1 patch 1 patch Transdermal QDAY(2 1) oseltamivir (TAMIFLU) oral suspension 75 mg 75 [...] in dextrose 5% (D5W) 250 mL IVPB ([id number]) 1 g I ntravenous Q12H* Continuous Infusions: propofol (DIPRIVAN) 10 mg/mL IV infusion 35 mcg/kg/min (10/23/18 0332) PRN and Respiratory Meds:acetaminophen Q6H PRN, calcium gluconate IV PRN (On Ca ll from Rx) AND Ionized Calcium PRN AND Notify Physician Ongoing, fentaN YL citrate PF Q2H PRN, ipratropium/albuterol Q4H PRN, magnesium sulfate PRN AN D Magnesium PRN AND Notify Physician Ongoing, oxyCODONE Q4H PRN, pancrelip ase 20,000 Units/ sodium bicarbonate 650 mg(#) PRN (Customs Examiner from Rx), potassium chloride SR PRN OR potassium chloride PRN, [DISCONTINUED] vancomycin IVPB Q8H* AND vancomycin, pharmacy to manage Per Pharmacy Physical Examination Vital Signs: Last Vital Signs: 24 Hour Ran ge BP: 135/79 (10/23 599) Temp: 37.4 C [...] R and L extremities from prior vein graftin g with no purulent drainage noted Skin: no rash Msk: no joint swelling or redness Psych: unable to assess Lines/drains/tubes: CVC in R IJ; ET tube; [facility] Recent Labs 10/21/18 03110/22/1831410/23/18 0325 WBC 18.6* 16.3* 16.9* HGB 9.4* [...] with concern for S pneumoniae meningitis, brain ab scess, cerebritits. I spent 35 minutes personally reviewing the patient's anita l signs, critical care flowsheets, labs, imaging studies, and clinical status, a s well as examining the patient and providing recommendations regarding manageme nt including further diagnostic testing and antimicrobial therapy. * Marci Hassan, PHARMD - 10/22/2018 4:52 PM CDT Pharmacy Vancomycin Note Subjective: Etelvina Alonso is a 58 y.o. female being treated for cerebritis. Objective: Current Vancomycin Orders Medication Dose Route Frequency vancomycin (VANCOCIN) 1,000 mg in dextrose 5% (D5W) 250 mL IVPB ([id number]) 1 g Intravenous Q12H* vancomycin, pharmacy to manage 1 each Service Per Pharmacy Start Date of Vancomycin therapy: 10/20/2018 White Blood Cells Date/Time Value Ref Range Status 10/22/20185 16.3 (H) 4.5 - 11.0 K/UL Final [...] and adjust therapy as needed. Marci Hassan, PHARMD 10/22/2018 * Louise Hennessy, PT - 10/22/2018 3:15 PM CDT PHYSICAL THERAPY NOTE Discussed patient with OT who discussed with bedside RN. Pt not following comman ds, but moving spontaneously only. When sedation decreased pt becomes agitated a nd is a high risk of self-extubation. Will continue to monitor and evaluate/tx w hen medically appropriate and able to participate in meaningful therapy. Therapist: Louise Hennessy, PT Date: 10/22/2018 * Elenita Butler, OT - 10/22/2018 2:45 PM CDT OCCUPATIONAL THERAPY NO TREATMENT NOTE The patient was not seen due to: discussed with RN. Pt not following commands, b ut moving spontaneously only. When sedation decreased pt becomes agitated and is a high risk of self-extubation. Will continue to monitor and evaluate/tx when m edically appropriate and able to participate in meaningful therapy. Therapist: Elenita Butler, OT Date: 10/22/2018 * Marleen Ponce RN - 10/22/2018 12:37 PM CDT IVT at bedside, x1 blue bottle was drawn prior to patient jerking needle from ar m, labeled and sent to lab. RN notified. * Benny Sepulveda MD - 10/22/2018 8:06 AM CDT Infectious Disease Progress Note Name: Etelvina Alonso Today's Date: 10/22/2018 Admission Date: 10/19/2018 Consulted for Cerebritis suspected Type of consult: Co-management w/signed orders Assessment: Strep pneumo bacteremia Bilateral LE wounds due to CABG vein harvest, both tracking deep, L with purulen t drainage Pneumocephalus with surrounding edema on CTA head 10/19/18 at OSH, cerebritis, pos sible developing abscess in basal right temporal lobe on MRI head 10/20/18 Influenza A with possible HCAP Acute hypoxic/hypercarbic respiratory failure -Past concern for biliateral LE wound infection as below -10/16 presented to [facility] with a few days of fever, cough -10/16/18: BC x 2 Strep Pneumo R- Clindamycin and erythromcyin S: ceftriaxone (MARCY 0.094), PCN (MARCY 0.064), levo, TMP/S, vanc. Rapid Flu Ag negative. MRSA nasal screen negative. 10/17/18: Sputum culture: Yeast and normal chelsey -Rapid mental status deterioration, intubated -CTA head 10/19/18 at OSH, small area of intraparenchymal air above the mastoid ai r cells and some edema around that area, with concern for possible infection. Pt was transferred to for further management -10/19: CXR patchy mixed alveolar and interstitial opacities -10/20: Tracheal aspirate: < 10 PMN, < 10 squam, no orgs. Cx pending -10/20: LLE swab: Pseudomonas aeruginosa -10/20: MRI head w/wo: Ovoid focus of diffusion restriction and partial rim enhanc ement in the basal right temporal lobe overlying the tegmen suggestive of focal cerebritis and developing abscess. Dependent diffusion restricting material wi thin the lateral ventricles suspicious for ventriculitis. Thin complex left po sterolateral convexity subdural fluid collection with diffusion restriction sugg estive of thin subdural empyema. Concern for bilateral LE wound infection, [facility] Bilateral vein harvest sites on lower extremities from CABG in [facility] [place], 07/2018 Multiple cultures in [facility], [place]. 09/07/18- Culture from R leg incision - [...] Mid To Distal Anteroapical Severe Hypokinesis To Akine sis, anterior mitral valve prolapse, moderate posterior lateral [...] This is targeting LE infections, not the HARDWARE ENGINEER infection. HARDWARE ENGINEER infection likely S pneumo which is well covered by the meropenem -Recommend she have a JYOTSNA to assess for any vegetations as well -Continue oseltamivir for influenza A x at least 5 days, might be reasonable to consider x 10 days given severity of overall illness -Continue fluconazole for thrush while intubated; discontinued nystatin while in tubated -Monitor for abx side effects Discussed with attending on service, Dr. Sepulveda I have seen, personally evaluated, and discussed the patient's care with Dr. Maria mahmood, Infectious Diseases Fellow. I agree with the subjective notations, object chema findings and agree with the plan of care as documented in this note with anil ts made by me as necessary. Benny Sepulveda MD Driver License Reviewing Officer Division of Infectious Diseases Interval History Etelvina Alonso is a 58 y.o. female with a PMH significant for CABG (07/2018) who p resented to [facility] on 10/16/18 after noting worsening cough and sternal pain from recent sternotomy and non-healing LE graft sites. Transfe rred to [facility] on 10/19/18 for right temporal lobe intraparenchymal air and edema se en on CTA. Remains intubated, sedated. Leukocytosis improved. Afebrile overnight WBC 16.3 Cr 0.47 Unable to complete ROS due to pt mental status Antimicrobial Start date End date Cefepime 300 mg PO BID 10/16/18 10/18/18 Ceftriaxone 10/18/18 10/20/18 Cefedinir 09/23/18 SEED POTATO CUTTER, uncertain timeframe Doxycycline 100 mg PO BID 09/06/18 SEED POTATO CUTTER, uncertain timeframe [id number] mg PO BID 08/23/18 SEED POTATO CUTTER, uncertain timeframe Fluconazole 150 mg PO QD 08/17/18 SEED POTATO CUTTER, uncertain timeframe Vancomycin 10/20/18 active Ampicillin 10/20/18 10/20/18 Fluconazole 10/20/18 active Oseltamivir 10/21/18 active Meropenem 10/20/18 active Bactrim 08/17/18 SEED POTATO CUTTER, uncertain timeframe Estimated Creatinine Clearance: 73.9 mL/min (based on SCr of 0.47 mg/dL). Cardenas Results 10/20 LLE wound swab: Pseudomonas aeruginosa 10/20 Tracheal aspirate: in progress 10/20 Respiratory PCR panel: (+) influenza A 10/20 Blood cx: NGTD Prior cultures 10/16/18 Blood cx (from [facility]): Strep Pneumo R- Clindamycin and erythromcyin Susceptible: ceftriaxone-dilut method 0.094, levofloxacin, penicillin e-dilut m ethod 0.064, trimethoprim, and vancomycin 09/19/18 L leg: [...] mg/day patch 1 patch 1 patch Transdermal QDAY(2 1) nystatin (MYCOSTATIN) oral suspension 500,000 Units 500,000 [...] in dextrose 5% (D5W) 250 mL IVPB ([id number]) 1 g I ntravenous Q12H* Continuous Infusions: propofol (DIPRIVAN) 10 mg/mL IV infusion 35 mcg/kg/min (10/22/18 0701) sodium chloride 0.45 % infusion 50 mL/hr at 10/21/18 0611 PRN and Respiratory Meds:acetaminophen Q6H PRN, calcium gluconate IV PRN (On Ca ll from Rx) AND Ionized Calcium PRN AND Notify Physician Ongoing, fentaN YL citrate PF Q2H PRN, ipratropium/albuterol Q4H PRN, magnesium sulfate PRN AN D Magnesium PRN AND Notify Physician Ongoing, oxyCODONE Q4H PRN, pancrelip ase 20,000 Units/ sodium bicarbonate 650 mg(#) PRN (Customs Examiner from Rx), potassium chloride SR PRN OR potassium chloride PRN, [DISCONTINUED] vancomycin IVPB Q8H* AND vancomycin, pharmacy to manage Per Pharmacy Physical Examination Vital Signs: Last Vital Signs: 24 Hour Ran ge BP: 128/81 (10/22 699) Temp: 37.3 C [...] R and L extremities from prior vein graftin g with no purulent drainage noted Skin: no [...] reviewing the patient's vital signs, critical care f lowsheets, labs, imaging studies, and clinical status, as well as examining the patient and providing recommendations regarding management including further amy gnostic testing and antimicrobial therapy. * Pankaj Bunn [...] history of HTN, HLD, no non-healing leg wo unds, CAD s/p CABG in 07/2018 who presented to an OSH on 10/16 with shortness of b reath and chest pains and found to have a RUL pneumonia. She was intubated on 10/17 2/2 worsening respiratory status and AMS. On 10/19, CTA with R temporal lobe int raparenchymal air and surrounding edema. Transferred to [facility] for escalation of c are. Hospital and ICU course: 10/19: [facility]red [facility] OSH [facility] Neuro: Altered mental status: encephalopathic vs sepsis; CT head 10/20: Concerning for possible cerebritis MRI Brain: Concerns for possible cerebritis of right temporal lobe and developin g abscess, thin subdural empyema, mastoiditis Neurosurgery consult and ENT consult: will watch for now, continue with medical management Q1 neurochecks Keppra 500 mg BID PT/OT Sedation/Pain Management: Propofol PRN fentanyl, oxycodone and tylenol available - Assess for delirium daily Cardiac: HTN; HLD; CAD s/p CABG in 07/2018; Paroxysmal AF SBP goal: < 160 MAP goal > 65 SEED POTATO CUTTER metoprolol, amiodarone - SEED POTATO CUTTER lisinopril on hold SEED POTATO CUTTER atrovastatin and ASA - SEED POTATO CUTTER plavix on hold Echo today: 35-40%, mitral valve borderline prolapse and regurg no vegetations Respiratory: RUL Pneumonia Date of Intubation: 10/17 Reason: Airway protection V/AC: - CXR: Increased lung volumes with persistent patchy mixed alveolar and interstitial opacities, which may represent pneumonia and/or edema. SEED POTATO CUTTER budesonide resumed Influenza - PaO2 goal >100, Spo2 goal >95%, PCO2 goal 35-40 torr, chest physiotherapy, bronchotherapy, PD& V q 6 hrs GI: Place Corpak and place tube feeds Feeding: NPO Bowel regimen, ensure daily BM Heme: Trend daily CBC SQ Heparin ASA Assess for coagulopathy, maintain platelets above 100k, INR <1.5 ID: Leukocytosis (mild); PNA; + Step pneumo bacteremia; Non-healing wounds on fr equent Abx 10/16 - blood cultures positive for [...] Electrolyte protocol in place Magnesium goal >2.0, i-John goal > 1.0, Potassium goal >4.0 mEq/L Prophylaxis Review: A)GI: [id number] B) Lines: Yes; Central Line; Indication: Frequent blood draws; Type: Internal jugular C) Urinary Catheter: Yes; Retain salomon due to: Need for accurate Intake and Ou tput D) Antibiotic Usage: Yes; Infection present or suspected: Lung; Pneumonia E) VTE: Pharmacological prophylaxis; SQ Heparin and Mechanical prophylaxis; Seq uential compression device F) Isolation: na G)Seizures: na [...] pneumothorax, had lung surgery in hospital at [facility] Restless leg syndrome Past Surgical History: Procedure Laterality Date HX CORONARY ARTERY BYPASS GRAFT HYSTERECTOMY OOPHORECTOMY ORTHOPEDIC SURGERY ligament repair in december 2017 VASCULAR SURGERY Family History Problem Relation Age of Onset Psoriasis Sister Heart Attack Sister maker 95% blocked s/p stenting Diabetes Sister Heart Disease Brother CT in 90s, with several stents Social History Social History Narrative Has 2 children and 2 grandchildren Son lives in [place] She is , to [place], for 30 years 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 Allergies: Patient has no known allergies. Medications Prior to Admission Medication Sig amiodarone (CORDARONE) 200 mg tablet Take 200 mg by mouth daily. Take with f ood. aspirin 81 mg chewable tablet Chew 81 mg by mouth daily. Take with food. atorvastatin (LIPITOR) 20 mg tablet Take 20 mg by mouth at bedtime daily. budesonide respule (PULMICORT) 0.5 mg/2 mL nebulizer solution Inhale 1 mg so lution by nebulizer as directed twice daily. clopiDOGrel (PLAVIX) 75 mg tablet Take 75 mg by mouth daily. furosemide (LASIX) 20 mg tablet Take 20 mg by mouth every morning. HYDROcodone/acetaminophen (NORCO) 5/325 mg tablet Take 1 tablet by mouth junie ry 6 hours as needed for Pain ipratropium/albuterol [...] Apply 1 patch to top of skin a s directed every 24 hours. Rotate patch location. oxyCODONE/acetaminophen (PERCOCET; ENDOCET; ROXICET) 5/325 mg tablet Take 1 tablet by mouth every 6 hours as needed for Pain polyethylene glycol 3350 (MIRALAX) 17 g packet Take 17 g by mouth twice weston y. potassium chloride SR (K-DUR) 20 mEq tablet Take 20 mEq by mouth daily. Take with a meal and a full glass of water. sertraline (ZOLOFT) 50 mg tablet Take 50 mg by mouth at bedtime daily. Review of Systems: Review of systems not obtained from patient due to patient factors. OBJECTIVE Vital Signs: Last Filed Vital Signs: 24 Hour Ra nge BP: 128/81 (10/22 699) Temp: 37.3 C [...] Therapy: Yes: Weaning readiness screen (RT Only):: Impl ement protocol Weaning readiness screen Met (RT Only):: [...] 123, temperature 37.3 C (99.2 F), height 16 2.6 cm (64"), weight 52.8 kg (116 lb 6.5 oz), SpO2 100 %. Clarkson coma score: 7+T E: 2 - Opens [...] stimulus. Attempts to kick in direction of radiology aide. Sensory: appears intact Coordination: Deferred DTRs: 2/4 Gait: Deferred Lungs: clear in BL uppers, fine crackles in Bl bases Pulmonary: Mechanical ventilation Heart: regular rate and rhythm, S1, S2 normal, no murmur, click, rub or gallop Abdomen: soft, non-tender. Bowel sounds normal. No masses, no organomegaly Extremities: extremities normal, atraumatic, no cyanosis. Mild 1+, non-pitting d ependent eyelid/facial edema, 1-2+ dependent edema in hands and feet. Skin: Skin color, texture, turgor normal. No rashes. Non healing leg wounds. Point of Care Testing: (Last 24 hours): Glucose: (!) 175 (10/22/18 0315) Lab Review: Pertinent labs reviewed Radiology and Other Diagnostic Procedures Review: Pertinent radiologic and diag nostic procedures reviewed. Pankaj Bunn MD Date: 10/22/[phone] Associated attestation - Farhad Perez MD - 10/23/2018 12:05 AM CDT NEICU Attending Rollway Man Attestation Etelvina Alonso is a 58 y.o. y.o. female admitted 10/19/2018 to the NEICU critically ill with meningitis and is receiving critical care services for the treatment of this primary diagnosis and the prevention and management of secondary injuries. I have reviewed the events, seen, personally examined, fully evaluated, and disc ussed this patient with NeuroICU team during the team rounds. I agree with the o bjective findings and agree with the plan of care as documented by the resident with the exceptions noted. This patient exhibits injury of at least one organ system and there is high prob ability of imminent or life-threatening deterioration in patient's condition. A s such, there is a need for continued medical attention including frequent neuro logical examination, frequent vital signs, and the cares appropriate for an ICU. I spent 55 minutes providing and personally directing neurological care services . Family and patient were counseled about the diagnosis, treatment plan, and pro gnosis. Farhad Perez MD Date: 10/23/2018 * uJvenal Gottlieb MD - 10/22/2018 7:03 AM CDT [facility]/HNS PROGRESS NOTE Today's Date: 10/22/2018 Admission Date: 10/19/2018 LOS: 3 days Subjective No acute events overnight. Patient resting comfortably in bed. Remains intubated and sedated. Objective Vital Signs: Last Filed Vital Signs: 24 Ramiro r Range BP: 128/81 (10/22 699) Temp: 37.3 [...] Dr. Don discussed these findings with Raquel fam APRN, by telephone 10/20/2018 4:39 PM. Approved by Abiel Don M.D. on 4:40 PM By my electronic signature, I attest that I have personally reviewed t he images for this examination and formulated the interpretations and opinions e xpressed in this report Finalized by Mayank Price M.D. on 10/20/2018 4:43 PM. Dic tated by Abiel Don M.D. on 10/20/2018 4:39 PM. Result Date: 10/20/2018 EXAM: MRI BRAIN (SKULL BASE PROTOCOL) HISTORY: 58-year-old female, altered ment al status. TECHNIQUE: Multiplanar and multisequence MR imaging of the head was p erformed. This was done both before and after the administration of MultiHanceco ntrast. COMPARISON: Same-day CT head and IACs. FINDINGS: Multiple sequences are degraded by repetitive motion artifact. The known areas of tegmen thinning and d ehiscence are demonstrated on previous CT exams. There is an ovoid focus of rest ricted diffusion within the right temporal lobe measuring up to 1.3 cm with asso ciated FLAIR hyperintensity (series 6, image 31 and series 18, image 8) and part ial rim enhancement. Mild surrounding FLAIR hyperintensity is noted. Small foci of increased DWI and ADC signal (T2 shine through) are seen within the right eugenio trum semiovale (series 6, images 40 and 41) compatible with subacute to chronic lacunar infarct. No evidence of acute ischemic infarct. Additional minimal foci of FLAIR hyperintensity in the cerebral white matter, likely age-appropriate. Th e ventricles are normal in size. There is abnormal FLAIR hyperintensity dependen tly layering bilaterally within the occipital horns of the lateral ventricles wi th associated restricted diffusion. Redemonstration of diffuse arachnoid pits wi th visualization of a small right anterior middle cranial fossa/sphenoid wing en cephalocele (series 12 image 34, series 14 image 21). Nearly empty sella appeara nce is again noted. There is a thin left posterior cerebral convexity FLAIR hype rintense fluid collection which demonstrates restricted diffusion (series 6, janice ge 33). There is associated thin dural enhancement along the left temporal and l ateral cerebral convexity. The central intracranial arterial flow voids are pres erved. Dedicated skull base thin section T2 sequence is essentially nondiagnosti c due to motion. Bilateral mastoid and middle ear effusions with associated enha ncement. Diffuse paranasal sinus mucosal thickening and secretions with moderate air-fluid levels in the maxillary sinuses which demonstrate diffusion restricti on. Dependent fluid noted within the nasopharynx and oropharynx with partially v isualized endotracheal tube. Diffuse symmetric prominence and ill-defined edema within the parotid, submandibular, and sublingual glands with associated enhance ment. The globes and orbits are grossly unremarkable, although, partially obscur ed due to motion on axial imaging. 1. Ovoid focus of diffusion restriction and partial rim enhancement in the basa l right temporal lobe overlying the tegmen suggestive of focal cerebritis and de veloping abscess. 2. Dependent diffusion restricting material within the latera l ventricles suspicious for ventriculitis. 3. Thin complex left posterolateral convexity subdural fluid collection with diffusion restriction suggestive of thi n subdural empyema. 4. Redemonstration of bilateral mastoid and middle ear effu sions with associated enhancement compatible with otomastoiditis. Diffuse acute- appearing paranasal sinusitis. Areas of tegmen thinning and dehiscence are concetta r demonstrated on comparison CTs. 5. Redemonstration of extensive arachnoid pit s with interval visualization of a small right sphenoid wing encephalocele. Give n partially empty sella appearance, findings may represent chronic intracranial hypertension. 6. Diffuse symmetric prominence, ill-defined edema, and enhanceme nt of the salivary glands suggestive of sialoadenitis. By my electronic signatDigital Chocolate e, I attest that I have personally reviewed the images for this examination and formulated the interpretations and opinions expressed in this report Ct Head Wo Contrast Result Date: 10/20/2018 CT HEAD WITHOUT CONTRAST HISTORY: 58 years old Female, intraparenchymal air TECH NIQUE: CT images of the head were acquired without intravenous contrast. COMPARI SON: Outside CTA from one day prior. FINDINGS: BRAIN PARENCHYMA: There is focal hypodensities in loss of victoria-white differentiation within the right inferior te mporal lobe adjacent to a small punctate area of intraparenchymal air (series 30 7B image 55). There is thinning and irregularity of the adjacent tegmen mastoide um and tegmen tympani with right middle ear and mastoid effusion. Bony detail is limited by technique and mild patient motion. Small right rowley radiata white matter hypodensity. No mass effect or midline shift. No intracranial hemorrhage. VENTRICLES/EXTRA-AXIAL SPACES: No hydrocephalus or extra-axial fluid collection s. EXTRACRANIAL STRUCTURES: Extensive arachnoid pits within the bilateral spheno id wings with the aforementioned bony thinning and irregularity over the roof of the right temporal bone. Diffuse paranasal sinus opacification with air-fluid l evels in the sphenoid sinuses and mastoid air cells. High-density structures ove r both globes. 1. Right inferior temporal lobe parenchymal edema with adjacent intracranial ga s and bony irregularity of the tegmen mastoideum and tegmen tympani highly suspi cious for temporal bone skull base defect with adjacent cerebritis. Evaluation o f the osseous structures limited by technique and mild patient motion. CT of the temporal bones as well as skull base MRI would offer more detailed characteriza tion of these areas. 2. Extensive bilateral sphenoid wing arachnoid pits withou t definite skull base dehiscence. The arachnoid pits and an empty sella turcica can be seen in intracranial hypertension. 3. Symmetric although irregular hypod ensity areas overlying the sclera of both globes which may represent ocular medi john devices or scleral calcifications. Finalized by RAYMOND ALEJANDRO M.D. on 10/20 7:56 AM. Dictated by RAYMOND ALEJANDRO M.D. on 10/20/2018 7:[address] Int Aud Canal Wo Contrast Result Date: 10/21/2018 CT TEMPORAL BONES WITHOUT CONTRAST HISTORY: 58 years old Female, head trauma. TE CHNIQUE: CT images of the temporal bones were acquired without contrast. COMPARI SON: CT head from earlier the same day. FINDINGS: RIGHT External Auditory Canal: Patent. Tympanic Membrane: Intact. Mastoid Air Cells: Well-formed and near comp letely opacified. No bony destruction. Multiple areas of thinning or possible de hiscence of the tegmen mastoideum. No superficial soft tissue inflammatory webster es are identified surrounding the mastoid portion of the temporal bone. Middle E ar Cavity: Complete opacification within the epitympanum, mesotympanum, or hypot ympanum. Numerous areas of irregularity and probable dehiscence of the tegmen ty mpani. Ossicles: Normal alignment. Possible subtle irregularities of the body an d short process of the incus. Labyrinthine Structures: Cochlea, vestibule, and s emicircular canals have normal morphology. The oval window and round window are patent. The cochlear aperture is patent. No semicircular canal dehiscence. Otic Capsule: Normal mineralization. Vestibular Aqueduct: Normal size. Facial Nerve: The fallopian canal has normal course and appearance. Internal Auditory Canal: N ormal size. Vascular: The sigmoid plate is intact. The petrous carotid canal has a normal course. Petrous apex: Near complete opacification of pneumatized cale us apex with thinning and irregularity of the roof of the petrous apex. LEFT Ext ernal Auditory Canal: Patent. Tympanic Membrane: Intact. Mastoid Air Cells: Well -formed and demonstrate patchy opacification. No bony destruction. Numerous area s of bony thinning or possible dehiscence of the tegmen mastoideum.. No superfic ial soft tissue inflammatory changes are identified surrounding the mastoid port ion of the temporal bone. Middle Ear Cavity: Partial opacification within the ep itympanum, mesotympanum, or hypotympanum. Probable thinning of the tegmen tympan i. The scutum is well formed. Ossicles: Normal alignment. No erosions. Labyrinth ine Structures: Cochlea, vestibule, and semicircular canals have normal morpholo gy. The oval window and round window are patent. The cochlear aperture is patent . No semicircular canal dehiscence. Otic Capsule: Normal mineralization. Vestibu lar Aqueduct: Normal size. Facial Nerve: The fallopian canal has normal course a nd appearance. Internal Auditory Canal: Normal size. Vascular: The sigmoid plate is intact. The petrous carotid canal has a normal course. OTHER: Extensive bila teral middle cranial fossa arachnoid pits. Right sphenoid wing cephalocele is be tter identified on same day MRI. Thinning of the left lateral sphenoid sinus wal l without definite cephalocele. Focal right inferior temporal lobe hypodensity i s redemonstrated. Extensive paranasal sinus mucosal thickening and air-fluid lev els. 1. Extensive thinning and numerous areas of probable dehiscence of the right te gmen tympani and tegmen mastoideum including immediately below the focal hypoden sity in the right inferior temporal lobe. 2. Complete opacification of the righ t middle ear, partial opacification of the right mastoid air cells, and opacific ation of the right petrous apex air cells which may partially related to CSF garcia k. A passive or infectious effusion could appear similar, however, there is no o bvious bony destruction or inflammatory changes in the superficial scalp soft ti ssues. 3. Slight irregularity of the body and short process of the right incus which may represent mild tympanosclerosis. 4. Numerous areas of thinning or pos sible dehiscence of the left tegmen tympani and tegmen mastoideum although sligh tly less impressive than the right temporal bone. 5. Partial opacification of t he left middle ear cavity and mastoid air cells without bony destruction or supe rficial inflammatory change. 6. Extensive bilateral sphenoid wing arachnoid pit s with right sphenoid cephalocele and thinning of the lateral wall the left sphe noid sinus. 7. Near complete opacification of the paranasal sinuses with air-fl uid levels. 8. Please see same-day MRI for description of intracranial abnormal ities. Finalized by RAYMOND ALEJANDRO M.D. on 10/21/2018 7:47 AM. Dictated by RAYMOND ALEJANDRO M.D. on 10/21/2018 7:21 AM. Patient Active Problem List Diagnosis Date Noted Altered mental status, unspecified 10/20/2018 Pneumonia due to infectious organism 10/19/2018 Acute respiratory failure with hypoxia and hypercapnia (HCC) 10/19/2018 Assessment/Plan: Etelvina Alonso is a 58 y.o. female with complex medical history including CABG and nonhealing wounds on legs and recent pneumonia. She is admitted for altered men madalyn status and was found to have pneumocephalus and cerebritis on imaging work u p. There is concern for multiple skull base defects and/or skull base thinning o gómez bilateral tegmen and right sphenoid wing. Exam does not demonstrate acute ot itis or sinuitis at this time. -- Agree with ID c/s and IV antibiotics -- We will discuss with neurotology staff today regarding the need for any futur e surgical intervention Please page for any questions or concerns. Juvenal Gottlieb MD Otolaryngology Resident, [id number] * Kelton Zelaya MD - 10/21/2018 10:52 AM CDT I saw this patient today on multidisciplinary rounds in conjunction with the bed side nurse and NEICU rounding team. I have reviewed all pertinent data, includin g labs, radiology, vital signs, neurologic assessments, nursing notes, respirato ry therapy data, intake and output, and consult notes and have devised a plan ba sed on the aforementioned data. This patient is critically ill with dysfunction of at least one organ system and is at risk for life threatening deterioration n ecessitating complex medical decision making and ongoing provision of ICU care. Critical Care Time: 45 minutes Ms Alonso is a 58 year old female with a complicated PMHx including CAD s/p CABG i n [place] in July 2018 with a post-op course complicated by non-healing EVH leg wounds, HTN, HLD, depression, anxiety, and COPD who presented to an OSH on with worsening shortness of breath and chest pain. A CTA was negative for PE but noted a RUL pneumonia. She was started on antibiotics at that time, but had an acute worsening of her mental status on 10/17 along with hypoxia requiring intu bation. She had been fairly stable but given her inability to clear her mental s tatus a CT scan was obtained which showed right temporal lobe pneumocephalus con cerning for possible infection, so she was transferred to [facility] for further care. Of note, she [...] change much, especially in light of patient's MR I findings of chronic increased ICP along with the fact that she's been on antib iotics for multiple days now, so I don't [...] her sedation as tolerated, but her mental statu s will likely continue to be poor until her intracerebral infection is adequatel y addressed - Levetiracetam for seizure prophylaxis along with propofol Cardiovascular: -->CAD s/p Recent CABG in July 2018 - complicated by chronic nonhealing bilateral lower extremity wounds and sternal nonunion - We'll have our Radiologists look at the outside Chest CT and see if there's an y sign of mediastinitis. The incision itself looks good but there is a prominent area of nonunion about two fingerbreadths wide. - Continue home ASA. Hold clopidogrel - Continue metoprolol, amiodarone, atorvastatin - TTE performed here shows LVEF 35-40%, anterior MV leaflet prolapse, eccentric posterior lateral mitral valve regurgitation. No obvious signs of vegetation, bu t we may need to consider a JYOTSNA to fully rule out infective endocarditis - D/C furosemide Pulmonary -->Respiratory Failure requiring mechanical ventilation - 18/370/40/5 - Failed multiple attempts at spontaneous breathing trials due to profound tachy pnea and low tidal volumes - We'll continue to work towards extubation, but her respiratory pattern will bray ve to improve markedly before that's safe. -->COPD [...] Tube, R IJ central line, Umm * Enio Langley RN - 10/21/2018 10:32 AM CDT 0800 - Spoke with Dr. Zelaya about need for weaning sedation hourly for neuro checks due to patient getting agitated when sedation is stopped. Per Dr. Varela h it is ok to just pause the sedation every 4 hours for neuro checks at this leonidas e. Will continue to monitor. * Pankaj Bunn [...] history of HTN, HLD, no non-healing leg wo unds, CAD s/p CABG in 07/2018 who presented to an OSH on 10/16 with shortness of b reath and chest pains and found to have a RUL pneumonia. She was intubated on 10/17 2/2 worsening respiratory status and AMS. On 10/19, CTA with R temporal lobe int raparenchymal air and surrounding edema. Transferred to [facility] for escalation of c are. Hospital and ICU course: 10/19: [facility] OSH [facility] Neuro: Altered mental status: encephalopathic vs sepsis; CT head 10/20: Concerning for possible cerebritis MRI Brain: Concerns for possible cerebritis of right temporal lobe and developin g abscess, thin subdural empyema, mastoiditis Neurosurgery consult: No intervention at this time ENT consult: Possibility of myringotomy will discuss with NSG about possible nino int porcedure Q1 neurochecks Keppra 500 mg BID PT/OT Sedation/Pain Management: Propofol PRN fentanyl, oxycodone and tylenol available - Assess for delirium daily Cardiac: HTN; HLD; CAD s/p CABG in 07/2018; Paroxysmal AF SBP goal: < 160 MAP goal > 65 SEED POTATO CUTTER metoprolol, amiodarone resumed - SEED POTAT[employer] CUTTER lisinopril on hold SEED POTAT[employer] CUTTER atrovastatin and ASA resumed - SEED P[employer] CUTTER plavix on hold Echo today: 35-40%, mitral valve borderline prolapse and regurg no vegetations Respiratory: RUL Pneumonia Date of Intubation: 10/17 Reason: Airway protection V/AV: - CXR: Increased lung volumes with persistent patchy mixed alveolar and interstitial opacities, which may represent pneumonia and/or edema. SE[employer] POTATO CUTTER budesonide resumed - PaO2 goal >100, Spo2 goal >95%, PCO2 goal 35-40 torr, chest physiotherapy, bronchotherapy, PD& V q 6 hrs GI: Place Corpak and place tube feeds Feeding: NPO Bowel regimen, ensure daily BM Heme: Trend daily CBC SQ Heparin ASA Assess for coagulopathy, maintain platelets above 100k, INR <1.5 ID: Leukocytosis (mild); PNA; + Step pneumo bacteremia; Non-healing wounds on fr equent Abx 10/16 - blood cultures positive for [...] Electrolyte protocol in place Magnesium goal >2.0, i-John goal > 1.0, Potassium goal >4.0 mEq/L Prophylaxis Review: A)GI: [id number] B) Lines: Yes; Central Line; Indication: Frequent blood draws; Type: Internal jugular C) Urinary Catheter: Yes; Retain salomon due to: Need for accurate Intake and Ou tput D) Antibiotic Usage: Yes; Infection present or suspected: Lung; Pneumonia E) VTE: Pharmacological prophylaxis; SQ Heparin and Mechanical prophylaxis; Seq uential compression device F) Isolation: na G)Seizures: na [...] atrial fibrillation (HCC) Pneumothorax tripped over a [employer] toy, had a pneumothorax, had lung surgery in hospital [facility] Restless leg syndrome Past Surgical History: Procedure Laterality Date HX CORONARY ARTERY BYPASS GRAFT HYSTERECTOMY OOPHORECTOMY ORTHOPEDIC SURGERY ligament repair in december 2017 VASCULAR SURGERY Family History Problem Relation Age of Onset Psoriasis Sister Heart Attack Sister maker 95% blocked s/p stenting Diabetes Sister Heart Disease Brother CT in s, with several stents Social History Social History Narrative Has 2 children and 2 grandchildren Son lives in [place] She is , to [place], for 30 years 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 Allergies: Patient has no known allergies. Medications Prior to Admission Medication Sig amiodarone (CORDARONE) 200 mg tablet Take 200 mg by mouth daily. Take with f ood. aspirin 81 mg chewable tablet Chew 81 mg by mouth daily. Take with food. atorvastatin (LIPITOR) 20 mg tablet Take 20 mg by mouth at bedtime daily. budesonide respule (PULMICORT) 0.5 mg/2 mL nebulizer solution Inhale 1 mg so lution by nebulizer as directed twice daily. clopiDOGrel (PLAVIX) 75 mg tablet Take 75 mg by mouth daily. furosemide (LASIX) 20 mg tablet Take 20 mg by mouth every morning. HYDROcodone/acetaminophen (NORCO) 5/325 mg tablet Take 1 tablet by mouth junie ry 6 hours as needed for Pain ipratropium/albuterol [...] Apply 1 patch to top of skin a s directed every 24 hours. Rotate patch location. oxyCODONE/acetaminophen (PERCOCET; ENDOCET; ROXICET) 5/325 mg tablet Take 1 tablet by mouth every 6 hours as needed for Pain polyethylene glycol 3350 (MIRALAX) 17 g packet Take 17 g by mouth twice weston y. potassium chloride SR (K-DUR) 20 mEq tablet Take 20 mEq by mouth daily. Take with a meal and a full glass of water. sertraline (ZOLOFT) 50 mg tablet Take 50 mg by mouth at bedtime daily. Review of Systems: Review of systems not obtained from patient due to patient factors. OBJECTIVE Vital Signs: Last Filed Vital Signs: 24 Hour Ra nge BP: 126/69 (10/21 699) Temp: 37.9 C (100.3 F) (10/21 0400) Pulse: 95 (10/21 699) Respirations: 18 PER MINUTE (10/21 699) SpO2: 100 % (10/21 699) O2 Delivery: Endotracheal Tube (Oral) (10/21 699) Height: 162.6 cm (64") (10/20 1010) Weight: 52.8 kg (116 lb 6.5 oz) (10/21 0301) BP: (97-157)/(47-94) Temp: [37.2 C (98.9 F)-38.3 [...] hours) Intake/Output Summary (Last 24 hours) at 10/21/2018 [...] stimulus. Attempts to kick in direction of radiology aide. Sensory: appears intact Coordination: Deferred DTRs: 2/4 Gait: Deferred Lungs: clear in BL uppers, fine crackles in Bl bases Pulmonary: Mechanical ventilation Heart: regular rate and rhythm, S1, S2 normal, no murmur, click, rub or gallop Abdomen: soft, non-tender. Bowel sounds normal. No masses, no organomegaly Extremities: extremities normal, atraumatic, no cyanosis. Mild 1+, non-pitting d ependent eyelid/facial edema, 1-2+ dependent edema in hands and feet. Skin: Skin color, texture, turgor normal. No rashes. Non healing leg wounds. Point of Care Testing: (Last 24 hours): Glucose: (!) 118 (10/21/18 0310) Lab Review: Pertinent labs reviewed Radiology and Other Diagnostic Procedures Review: Pertinent radiologic and diag nostic procedures reviewed. Pankaj Bunn MD Date: 10/21/[phone] * Karen Duval RN - 10/21/2018 7:10 AM CDT I have reviewed the notes, assessment, and/or procedures performed by Saba crook and concur with her/his documentation unless otherwise noted. * Russ Lopez RN - 10/20/2018 3:00 PM COMMUNITY ASSOCIATION MANAGER Significant motion during scanning, 25 mcg of Fentanyl administered. Continuing with imaging, UNITY ASSOCIATION MANAGER * Russ Lopez RN - 10/20/2018 2:33 PM COMMUNITY ASSOCIATION MANAGER significant motion during imaging, Propofol infusion rate increased with minimal effect, Fentanyl 50 mcg, administered as per PRN orders, UNITY ASSOCIATION MANAGER * Sudha Quan PT - 10/20/2018 1:36 PM COMMUNITY ASSOCIATION MANAGER PHYSICAL THERAPY NOTE Physical therapy orders received and appreciated. Chart reviewed and discussed p atient status with bedside RN. Per RN, patient currently intubated and sedated; not appropriate for purposeful PT evaluation at this time. PT will follow up as able and provide evaluation/treatment as indicated. Therapist: Sudha Quan PT, DPT Date: 10/20/2018 UNITY ASSOCIATION MANAGER * Aline Sneed, OT - 10/20/2018 1:36 PM COMMUNITY ASSOCIATION MANAGER OCCUPATIONAL THERAPY NOTE OT orders received and appreciated. Chart reviewed and discussed status with RN. Per RN, patient currently intubated and sedated; not appropriate for purposeful OT evaluation at this time. OT will follow up as indicated to provide evaluatio n/treatment. Therapist: Aline Sneed, DALIALR/L [id number] Date: 10/20/2018 UNITY ASSOCIATION MANAGER * Russ Lopez RN - 10/20/2018 1:35 PM COMMUNITY ASSOCIATION MANAGER 1300 - Assumed care, travelled with pt to CT/MRI, vented, sedated, monitored, re strained, accompanied by this nurse, Howard TOLLIVER, tolerated well. 1335 - CT completed, transferred to MRI table, no adverse events, monitoring in place, Imaging in progress. UNITY ASSOCIATION MANAGER * Elsy Luke, PHARMD - 10/20/2018 9:51 AM COMMUNITY ASSOCIATION MANAGER Pharmacy Vancomycin Note Subjective: Etelvina Alonso is a 58 y.o. female being treated for cerebritis. Objective: Current Vancomycin Orders Medication Dose Route Frequency vancomycin (VANCOCIN) 1,000 mg in sodium chloride 0.9% (NS) 250 mL IVPB (Via l2Bag) 1 g Intravenous ONCE Followed by vancomycin (VANCOCIN) 750 mg in D5W 150mL IVPB (premade) 15 mg/kg Intrave nous Q12H* vancomycin, pharmacy to manage 1 each Service Per Pharmacy Start Date of Vancomycin therapy: 10/20/2018 White Blood Cells Date/Time Value Ref Range Status 10/20/2018 0338 14.2 (H) 4.5 - 11.0 K/UL Final 10/19/2018 2336 13.0 (H) 4.5 - 11.0 K/UL Final Creatinine Date/Time Value Ref Range Status 10/20/2018 0338 0.50 0.4 - 1.00 MG/DL Final 10/19/2018 233 0.51 0.4 - 1.00 MG/DL Final Blood [...] therapy as needed. Elsy Luke, PHARMD 10/20/2018 UNITY ASSOCIATION MANAGER * Magali Patel RN - 10/20/2018 8:00 AM COMMUNITY ASSOCIATION MANAGER MD Sepideh, with NEICU notified of pt's Left pupil>right pupil at 0800 assessment. MD at bedside to assess. Orders to continue to monitor and assess. UNITY ASSOCIATION MANAGER * Karen Duval RN - 10/20/2018 6:36 AM COMMUNITY ASSOCIATION MANAGER I have reviewed the notes, assessment, and/or procedures performed by Saba crook and concur with her/his documentation unless otherwise noted. UNITY ASSOCIATION MANAGER * Pankaj Bunn MD - 10/20/2018 6:23 AM COMMUNITY ASSOCIATION MANAGER Neuro Critical Care Progress Etelvina Alonso Admission Date: 10/19/2018 LOS: 1 day Full Code ASSESSMENT/PLAN Patient Active Problem List Diagnosis Date Noted Altered mental status, unspecified 10/20/2018 Pneumonia due to infectious organism 10/19/2018 Acute respiratory failure with hypoxia and hypercapnia (HCC) 10/19/2018 Etelvina Alonso is a 58 y.o. female with history of HTN, HLD, no non-healing leg wo unds, CAD s/p CABG in 07/2018 who presented to an OSH on 10/16 with shortness of b reath and chest pains and found to have a RUL pneumonia. She was intubated on 10/17 2/2 worsening respiratory status and AMS. On 10/19, CTA with R temporal lobe int raparenchymal air and surrounding edema. Transferred to [facility] for escalation of c are. Hospital and ICU course: 10/19: Transfer[facility] OSH [facility] Neuro: Altered mental status: encephalopathic vs sepsis; Small R Temporal lobe i ntraparenchymal air CT head 10/20: Concerning for possible cerebritis Skull base MRI brain CT temporal lube Q1 neurochecks PT/OT Sedation/Pain Management: Propofol PRN fentanyl, oxycodone and tylenol available - Assess for delirium daily Cardiac: HTN; HLD; CAD s/p CABG in 07/2018; Paroxysmal AF SBP goal: < 160 MAP goal > 65 SEED POTATO CUTTER metoprolol, amiodarone resumed - SEED POTATO CUTTER lisinopril on hold SEED POTATO CUTTER atrovastatin and ASA resumed - SEED POTATO CUTTER plavix on hold Echo today Respiratory: RUL Pneumonia Date of Intubation: 10/17 Reason: Airway protection V/AV: - CXR: Increased lung volumes with persistent patchy mixed alveolar and interstitial opacities, which may represent pneumonia and/or edema. SEED POTATO CUTTER budesonide resumed - PaO2 goal >100, Spo2 goal >95%, PCO2 goal 35-40 torr, chest physiotherapy, bronchotherapy, PD& V q 6 hrs GI: Place Corpak and place tube feeds Feeding: NPO Bowel regimen, ensure daily BM Heme: Trend daily CBC SQ Heparin Assess for coagulopathy, maintain platelets above 100k, INR <1.5 ID: Leukocytosis (mild); PNA; + Step pneumo bacteremia; Non-healing wounds on fr equent Abx 10/16 - blood cultures positive for [...] Electrolyte protocol in place Magnesium goal >2.0, i-John goal > 1.0, Potassium goal >4.0 mEq/L Prophylaxis Review: A)GI: [id number] B) Lines: Yes; Central Line; Indication: Frequent blood draws; Type: Internal jugular C) Urinary Catheter: Yes; Retain salomon due to: Need for accurate Intake and Ou tput D) Antibiotic Usage: Yes; Infection present or suspected: Lung; Pneumonia E) VTE: Pharmacological prophylaxis; SQ Heparin and Mechanical prophylaxis; Seq uential compression device F) Isolation: na G)Seizures: na [...] 200 mg by mouth daily. Take with f ood. aspirin 81 mg chewable tablet Chew 81 mg by mouth daily. Take with food. atorvastatin (LIPITOR) 20 mg tablet Take 20 mg by mouth at bedtime daily. budesonide respule (PULMICORT) 0.5 mg/2 mL nebulizer solution Inhale 1 mg so lution by nebulizer as directed twice daily. clopiDOGrel (PLAVIX) 75 mg tablet Take 75 mg by mouth daily. furosemide (LASIX) 20 mg tablet Take 20 mg by mouth every morning. HYDROcodone/acetaminophen (NORCO) 5/325 mg tablet Take 1 tablet by mouth junie ry 6 hours as needed for Pain ipratropium/albuterol [...] Apply 1 patch to top of skin a s directed every 24 hours. Rotate patch location. oxyCODONE/acetaminophen (PERCOCET; ENDOCET; ROXICET) 5/325 mg tablet Take 1 tablet by mouth every 6 hours as needed for Pain polyethylene glycol 3350 (MIRALAX) 17 g packet Take 17 g by mouth twice weston y. potassium chloride SR (K-DUR) 20 mEq tablet Take 20 mEq by mouth daily. Take with a meal and a full glass of water. sertraline (ZOLOFT) 50 mg tablet Take 50 mg by mouth at bedtime daily. Review of Systems: Review of systems not obtained from patient due to patient factors. OBJECTIVE Vital Signs: Last Filed Vital Signs: 24 Hour [facility] BP: 131/67 (10/20 599) Temp: 37.8 C (100.1 F) (10/21 399) Pulse: 117 (10/20 599) Respirations: 22 PER MINUTE (10/20 599) SpO2: 98 % (10/20 599) O2 Delivery: Endotracheal Tube (Oral) (10/20 599) Height: 162.6 cm (64") (10/19 2299) Weight: 54.1 kg (119 lb 4.3 oz) (10/21 399) Dosing / Dry Weight: 54.3 kg (119 lb 11.4 oz) (10/19 2299) BP: (91-131)/(54-74) Temp: [36.9 C (98.4 F)-37.8 C (100.1 F)] Pulse: [82-142] Respirations: [17 PER MINUTE-43 PER MINUTE] SpO2: [95 %-100 %] O2 Delivery: Endotracheal Tube (Oral) Intensity Pain Scale (Self Report): (not recorded) Vitals: 10/19/18 2300 10/20/18 0400 Weight: 54.3 kg (119 lb 11.4 oz) [...] hours) Intake/Output Summary (Last 24 hours) at 10/20/2018 [...] stimulus. Attempts to kick in direction of radiology aide. Sensory: appears intact Coordination: Deferred DTRs: 2/4 Gait: Deferred Lungs: clear in BL uppers, fine crackles in Bl bases Pulmonary: Mechanical ventilation Heart: regular rate and rhythm, S1, S2 normal, no murmur, click, rub or gallop Abdomen: soft, non-tender. Bowel sounds normal. No masses, no organomegaly Extremities: extremities normal, atraumatic, no cyanosis. Mild 1+, non-pitting d ependent eyelid/facial edema, 1-2+ dependent edema in hands and feet. Skin: Skin color, texture, turgor normal. No rashes. Non healing leg wounds. Point of Care Testing: (Last 24 hours): Glucose: (!) 142 (10/20/18 0338) Lab Review: Pertinent labs reviewed Radiology and Other Diagnostic Procedures Review: Pertinent radiologic and diag nostic procedures reviewed. Pankaj Bunn MD Date: 10/20/[phone] UNITY ASSOCIATION MANAGER Associated attestation - Kelton Zelaya MD - 10/20/2018 9:58 PM COMMUNITY ASSOCIATION MANAGER I have seen, personally fully evaluated, and discussed patient with Dr Bunn. I agree with the objective findings and agree with the plan of care as document ed by the resident with the exceptions noted. The patient is critically ill wit h strep pneumo bacteremia, pneumonia, respiratory failure, altered mental status , infected non-healing leg wounds, encephalopathy, and pneumocephalus on her CT scan concerning for an infectious process. I spent 83 minutes (excluding time s pent performing or supervising any procedures) providing and personally directin g critical care services, including reviewing imaging and laboratory results. Ms Alonso is a 58 year old female with a complicated PMHx including CAD s/p CABG i n [place] in July 2018 with a post-op course complicated by non-healing EVH leg wounds, HTN, HLD, depression, anxiety, and COPD who presented to an OSH on with worsening shortness of breath and chest pain. A CTA was negative for PE but noted a RUL pneumonia. She was started on antibiotics at that time, but had an acute worsening of her mental status on 10/17 along with hypoxia requiring intu bation. She had been fairly stable but given her inability to clear her mental s tatus a CT scan was obtained which showed right temporal lobe pneumocephalus con cerning for possible infection, so she was transferred to [facility] for further care. Of note, she [...] when the last time she received her Clopidog rel was -->Altered Mental Status - seems to [...] her sedation as tolerated, but her mental statu s will likely continue to be poor until her intracerebral infection is adequatel y addressed Cardiovascular: -->CAD s/p Recent CABG in July 2018 - complicated by chronic nonhealing bilateral lower extremity wounds and sternal nonunion - We'll have our Radiologists look at the outside Chest CT and see if there's an y sign of mediastinitis. The incision itself looks good but there is a prominent area of nonunion about two fingerbreadths wide. - Continue home ASA. Hold clopidogrel - Continue metoprolol, amiodarone, furosemide, atorvastatin - TTE performed here shows LVEF 35-40%, anterior MV leaflet prolapse, eccentric posterior lateral mitral valve regurgitation. No obvious signs of vegetation, bu t we may need to consider a JYOTSNA to fully rule out infective endocarditis Pulmonary -->Respiratory Failure requiring mechanical ventilation - 18/370/40/5 - Failed multiple attempts at spontaneous breathing trials due to profound tachy pnea and low tidal volumes - We'll continue to work towards extubation, but her respiratory pattern will bray ve to improve markedly before that's safe. -->COPD [...] Tube, R IJ central line, Salomon * Saba Buck - 10/20/2018 2:55 AM COMMUNITY ASSOCIATION MANAGER Patient arrived to room #5126 via bed accompanied by RN. Patient transferred to the bed with assistance. Bedside safety checks completed. Initial patient assess ment completed, refer to flowsheet for details. Admission skin assessment comple yasmeen by: Pressure Injury Present on Hospital Admission [...] Doc Flowsheet for additional wound details. INTERVENTIONS: UNITY ASSOCIATION MANAGER documented in this encounter H&P Notes * Radha Pro APRN,ANP- - 11/01/2018 9:29 AM CDT Interventional Radiology Consult Note with Pre-procedural History and Physical Admission Date: 10/19/2018 LOS: 13 days Active Problems: Pneumonia due to infectious organism Acute respiratory failure with hypoxia and hypercapnia (HCC) Altered mental status, unspecified Paroxysmal atrial fibrillation (HCC) Pneumocephalus Cerebritis Influenza A Abscess of brain Reason for consult: Pt with trach and need for half-way PO access. Assessment: Corpak in place. Plan: 1. Procedure request for has been reviewed and added onto the IR schedule for to day. Please keep NPO. Labs, medications, and allergies meet procedural protocol. IR will attempt GJ tube placement but possible to only be able G tube access in itially and pt will need to come back for conversion to GJ tube in future. We appreciate being able to participate in this patient's care. Please page with any questions or concerns. Radha Arango APRN,ANP-BC Pgr [phone] IR Team Pager [phone] (After-hours and Weekends) Procedure Date: 11/01/2018 Procedure: GJ tube placement. IR Pre Procedure Notes: Consent in chart. Chief Complaint: Dysphagia. Previous Anesthetic/Sedation History: Reviewed. History of present illness: Etelvina Alonso is a 58 y.o. female patient with PMH influenza, pneumonia, and brai n abscess who is now in need of intermediate teacher PO access. Review of Systems Constitutional: negative [...] (NS) 100 mL IVPB (MB+) 2 g Intra venous Q8H* [START ON 11/06/2018] cefTRIAXone (ROCEPHIN) IVP [...] mg/day patch 1 patch 1 patch Transdermal QDAY(2 1) ofloxacin (FLOXIN) 0.3 % (ophthalmic for otic use) solution 4 drop 4 drop Both E ars TID potassium chloride oral solution 20 mEq [...] Meds:acetaminophen Q4H PRN, calcium gluconate IV PRN (On Ca ll from Rx) AND Ionized Calcium PRN AND Notify Physician Ongoing, fentaN YL citrate PF Q1H PRN, ipratropium/albuterol Q4H PRN, magnesium sulfate PRN AN D [CANCELED] Magnesium PRN AND Notify Physician Ongoing, oxyCODONE Q4H PRN , pancrelipase 20,000 Units/ sodium bicarbonate 650 mg(#) PRN (Customs Examiner from Rx), potassium chloride SR PRN OR potassium chloride PRN Objective Vital Signs: Last Filed Vital Signs: 24 Ramiro r Range BP: 130/100 (11/02 799) Temp: 37.2 C (99 F) (11/02 799) Pulse: 109 (11/01 904) Respirations: 25 PER MINUTE (11/01 904) SpO2: 100 % (11/01 904) O2 Delivery: Tracheal Tube (11/01 0700) SpO2 Pulse: 109 (11/01 904) BP: (92-158)/(42-100) [...] (A patient with a severe systemic disease th at limits activity, but is not incapacitating) Sedation/Medication Plan: Fentanyl, Lidocaine and Midazolam Personal history of sedation complications: Denies adverse event. Family history of sedation complications: Denies adverse event. Medications for Reversal: Naloxone and Flumazenil Discussion/Reviews: Physician has discussed risks and alternatives of this type of sedation and above planned procedures with patient NPO Status: Acceptable Status: Not Lab/Radiology/Other Diagnostic Tests: Labs: 24-hour labs: Results for orders placed or performed during the hospital encounter of 10/19/18 (from the past 24 hour(s)) IONIZED CALCIUM [...] 4.5 MG/DL Radiology: Reviewed. * Lorena Rockwell, MARIBELL,VEGETABLE HARVEST WORKER - 10/19/2018 8:07 PM COMMUNITY ASSOCIATION MANAGER Neuro Critical Care History and Physical Etelvina Alonso Admission Date: (Not on file) LOS: 0 days No Order ASSESSMENT/PLAN Patient Active Problem List Diagnosis Date Noted Pneumonia due to infectious organism 10/19/2018 Acute respiratory failure with hypoxia and hypercapnia (HCC) 10/19/2018 Etelvina Alonso is a 58 y.o. female with history of HTN, HLD, no nhealing leg wound s, CAD s/p CABG in 07/2018 who presented to an OSH on 10/16 with shortness of yasmani th and hcest pains and found to have a RUL pneumonia. She was intubated on 10/17 2 /2 worsening respiratory status and AMS. On 10/19, CTA with R temporal lobe intrap arenchymal air and surrounding edema. Transferred to [facility] for escalation of care . Hospital and ICU course: 10/19: [facility] Neuro: Altered mental status: encephalopathic vs sepsis; Small R Temporal lobe i ntraparenchymal air CT head at 400 Q1 neurochecks PT/OT - FAST FOOD CASHIER once extubated and more appropriate - Neuro-ICU monitoring, neurochecks q 1 hrs, parameters for prevention of second manny brain injury (avoid hypotension, hypoxia, fever, hyperglycemia,significant a nemia, diagnose and treatment of seizures, electrolyte abnormalities) Sedation/Pain Management: Propofol for sedation - paused upon arrival for assessment and shortly resumed PRN fentanyl, oxycodone and tylenol available - Assess for delirium daily Cardiac: HTN; HLD; CAD s/p CABG in 07/2018; Paroxysmal AF SBP goal: < 160 MAP goal > 65 SEED POTATO CUTTER metoprolol, amiodarone resumed - SEED POTATO CUTTER lisinopril on hold SEED POTATO CUTTER atrovastatin and asa resumed - SEED POTATO CUTTER plavix on hold Echo pending to r/o infectious source ECG with sinus tachycardia Respiratory: RUL Pneumonia Date of Intubation: 10/17 Reason: Airway protection MMV: - CXR: - ABG: SEED POTATO CUTTER budesonide resumed - PaO2 goal >100, Spo2 [...] + Step pneumo bacteremia; Non-healing wounds on fr equent Abx 10/19 WBC 13.0 Lactic acid 0.9 - Was 2.7 on admission to OSH 10/16 10/16 - blood cultures positive for strep pneumo. Sputum + yeast - Continued Rocephin 1gm QD and Fluconazole QD here from OSH. Repeat gatica cultures, fungal included, here Had been on outpatient treatments of cefdinir, clindamycin, doxycycline and bact rim between 08/17- 09/23. Trend daily CBC Tmax [...] Electrolyte protocol in place Magnesium goal >2.0, i-John goal > 1.0, Potassium goal >4.0 mEq/L Prophylaxis Review: A)GI: P1[place] B) Lines: Yes; Central Line; Indication: Frequent blood draws; Type: Internal jugular C) Urinary Catheter: Yes; Retain salomon due to: Need for accurate Intake and Ou tput D) Antibiotic Usage: Yes; Infection present or suspected: Lung; Pneumonia E) VTE: Pharmacological prophylaxis; SQ Heparin and Mechanical prophylaxis; Seq uential compression device F) Isolation: na G)Seizures: na [...] OSH with a 2-3 day history of c ough, pain at sternal incision and fever at home of 100.8. She endorsed pain wit h palpation to sternum at that time. She was admitted to the floor. On 10.17 her p ulmonary status worsened, developed altered mental status and was transferred to ICU and subsequently intubated. CTA head performed on 10/19 demonstrated a small area of intraparenchymal air above the mastoid air cells and some edema around t hat area. With these finding and the patient's worsening condition, the OSH felt it necessary to facilitate transfer to [facility] for escalation of care. Past Medical [...] 200 mg by mouth daily. Take with f ood. aspirin 81 mg chewable tablet Chew 81 mg by mouth daily. Take with food. atorvastatin (LIPITOR) 20 mg tablet Take 20 mg by mouth at bedtime daily. budesonide respule (PULMICORT) 0.5 mg/2 mL nebulizer solution Inhale 1 mg so lution by nebulizer as directed twice daily. clopiDOGrel (PLAVIX) 75 mg tablet Take 75 mg by mouth daily. furosemide (LASIX) 20 mg tablet Take 20 mg by mouth every morning. HYDROcodone/acetaminophen (NORCO) 5/325 mg tablet Take 1 tablet by mouth junie ry 6 hours as needed for Pain ipratropium/albuterol [...] Apply 1 patch to top of skin a s directed every 24 hours. Rotate patch location. oxyCODONE/acetaminophen (PERCOCET; ENDOCET; ROXICET) 5/325 mg tablet Take 1 tablet by mouth every 6 hours as needed for Pain polyethylene glycol 3350 (MIRALAX) 17 g packet Take 17 g by mouth twice weston y. potassium chloride SR (K-DUR) 20 mEq tablet Take 20 mEq by mouth daily. Take with a meal and a full glass of water. sertraline (ZOLOFT) 50 mg tablet Take 50 mg by mouth at bedtime daily. Review of Systems: Review of systems not obtained from patient due to patient factors. OBJECTIVE Vital Signs: Last Filed Vital Signs: 24 Hour Ra nge Intensity Pain Scale (Self Report): (not recorded) There were no vitals filed fo r this visit. Artificial airway: Endotracheal Tube Ventilator/ [...] were no vitals taken for this visit. Clarkson coma score: 7+T E: 2 - Opens [...] stimulus. Attempts to kick in direction of radiology aide. Sensory: appears intact Coordination: Deferred DTRs: 2/4 Gait: Deferred Lungs: clear in BL uppers, fine crackles in Bl bases Pulmonary: Mechanical ventilation Heart: regular rate and rhythm, S1, S2 normal, no murmur, click, rub or gallop Abdomen: soft, non-tender. Bowel sounds normal. No masses, no organomegaly Extremities: extremities normal, atraumatic, no cyanosis. Mild 1+, non-pitting d ependent eyelid/facial edema, 1-2+ dependent edema in hands and feet. Skin: Skin color, texture, turgor normal. No rashes. Non healing leg wounds. Point of Care Testing: (Last 24 hours): Lab Review: Pertinent labs reviewed Radiology and Other Diagnostic Procedures Review: Pertinent radiologic and diag nostic procedures reviewed. I spent 70 minutes managing the care of this patient. Mrs. Alonso is critically il l with pneumonia, altered mental status and recent bacteremia. Cares included: d etailed neurologic and systems exam, medication review, laboratory data review a nd interpretation, electrolyte management, review of available imaging, DVT/PE p rophylaxis review, diet review, activity review, mechanical ventilation and anabella tion management, and coordination of care with consulted teams Lorena Rockwell, MSN,VEGETABLE HARVEST WORKER Date: 10/19/[phone] UNITY ASSOCIATION MANAGER documented in this encounter Consult Notes * [...] to be device related, please select the dev ice:: Wound Image 10/25/2018 12:30 PM Agree With My Assessment? Yes 10/25/2018 4:00 AM Wound Dressing Status Open to Air 10/25/2018 12:30 PM Wound Dressing and / or Treatment Criticaid Barrier Cream 10/25/2018 12:30 PM Wound Drainage Amount None 10/25/2018 12:30 PM Wound Base Assessment Moist;Red 10/25/2018 12:30 PM Surrounding Skin Assessment Intact;[place] 10/25/2018 12:30 PM Wound Status (Wound Team [...] to area BID and PRN soiling per nursing staffing coordinator. Continue Q2hr turning schedule using foam wedge for suppor t. Apply offloading boots to bilateral heels for additional pressure ulcer preve ntion. Will continue to follow. Olimpia Louise RN, BSN, CMSRN, CWON Wound Ostomy Nursing Consult Service Office: [phone] Pager: [phone] After Hours Wound/Ostomy Team Pager: [phone] * Leah Pak PA-C - 10/25/2018 9:47 AM CDT Associated Order(s): CONSULT CARDIOTHORACIC SURGERY PHYSICIAN CTS CONSULT Date of Service: 10/25/2018 Requesting Physician: Lorena Rockwell MD Consulting Physician: Miguel Angel Odonnell MD Consult Performed By: Leah Pak PA-C HPI: Etelvina Alonso is a 58 y.o. female with history of HTN, HLD, no nhealing leg wound s, CAD s/p CABG in 07/2018 in [place] who presented to an OSH on 10/16 with shortn ess of breath and chest pains and found to have a RUL pneumonia. She was intubat ed on 10/17 2/2 worsening respiratory status and AMS. Workup showed cerebritis, te gmen dehisence, encephalocele, possible temporal lobe abscess. Planning for repe at MRI head tomorrow. Failed ventilator weaning, becoming tachypneic RR>40. Pt intubated at time of exam. Responds intermittently to questions. No follow up after CABG with cardiology or PCP. Reports coughing with popping of sternum aft er surgery. Also reports smoking in PO phase. Sternal incision well healed. Bila teral LE with multiple sites of dehiscence. Cardiothoracic consultation has been requested to determine if sternal dehiscenc e as possible contributing factor of tachypnea. 10/23/18 JYOTSNA: There is a small echogenic mass on the coaptation line of the aorti c valve. Appears to likely be associated with the left coronary cusp. A vegetati on cannot be ruled out. The appearance could also favor a possible small papilla ry fibro-elastoma. No stenosis. No regurgitation. Outside CT chest and XR images show dehiscence of sternum with loosening of 2 st ernal wires. Impression: Active Hospital Problems Diagnosis Altered mental status, unspecified Pneumonia due to infectious organism Acute respiratory failure with hypoxia and hypercapnia (HCC) Plan: Dehiscence of sternum most likely occurred in the acute PO phase. Pt indicated t he clicking noises started immediately after surgery. No signs of acute infectio n at sternal incision site. Multiple sites of wound dehiscence of LE - continue abx per ID. It is unlikely prolonged intubation and tachypnea are due to chronic sternal deh iscence. History of COPD, PNA and heavy smoking. The patient may benefit from plastics input. No surgical intervention is needed at this time. Plan discussed with Dr. Odonnell who agrees and will further evaluate. Leah Pak PA-C [phone] Past Medical History: Diagnosis Date Arthritis Asthma CAD (coronary artery disease) COPD (chronic obstructive pulmonary disease) (HCC) Depression Disruption or dehiscence of closure of sternum or sternotomy Edentulous 2016 Poor dentition Endometriosis Hyperlipidemia Hypertension, essential Non-healing wound of lower extremity Paroxysmal atrial fibrillation (HCC) Pneumothorax tripped over a kraig toy, had a pneumothorax, had lung surgery in hospital [facility] Restless leg syndrome Past Surgical History: [...] (NS) 100 mL IVPB (MB+) 2 g Intra venous Q8H* chlorhexidine gluconate (PERIDEX) 0.12 % solution [...] mg/day patch 1 patch 1 patch Transdermal QDAY(2 1) oseltamivir (TAMIFLU) oral suspension 75 mg 75 mg Per NG tube BID pantoprazole(#) (PROTONIX) suspension 40 mg 40 mg Per NG tube QDAY(21) potassium chloride oral solution 20 mEq 20 mEq Per OG Tube QDAY potassium phosphate 20 mmol in dextrose 5% (D5W) 250 mL IVPB (CENTRAL LINE ONLY) 20 mmol Intravenous ONCE senna/docusate (SENOKOT-S) solution 10 mL 10 mL Per OG Tube BID sertraline (ZOLOFT) tablet 50 mg 50 mg SEE ADMIN INSTRUCTIONS QHS No Known Allergies Family History Problem Relation Age of Onset Psoriasis Sister Heart Attack Sister maker 95% blocked s/p stenting Diabetes Sister Heart Disease Brother CT in 90s, with several stents Social History Socioeconomic History [...] children and 2 grandchildren Son lives in [place] She is , to [place], for 30 years 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 Physical Exam: Temp: 37 C (98.6 F) (10/26 799) [...] or performed during the hospital encounter of 10/19/18 (from the past 24 hour(s)) VANCOMYCIN TROUGH [...] medical/surgical/social/family history, review of systems and exam. T is a 58-year-old female who has undergone coronary artery bypass grafting at an outside facility. She subsequently presented to a different facility with s hortness of breath and chest pain. She was found to have pneumonia. She was pena bsequently intubated due to her worsening respiratory status. An extensive wo rkup was undertaken and revealed pneumocephalus, possible temporal lobe abscess, cerebritis. She is also failed ventilator weaning since arriving [facility] our [facility]. Prior to admission she was a dedicated tobacco user. I have personally reviewed the patient's available imaging studies and laborator y tests. Transesophageal echocardiogram reveals no significant pathology. Ther e is per report a thickening at the coaptation point on the left coronary cusp w hich may represent fibroblastoma versus even possible vegetation. She has 2 bro vidhya sternal wires by x-ray as well as CT scan. She has some emphysema present o n CT. There does not appear to be any associated abscess with her sternal nonun ion. Per reports patient has had clicking since almost immediately postoperatively. This likely represents the time of her sternal dehiscence. She has gone on to h ave subsequent nonunion which is not surprising. I do not feel that her sternal nonunion is a large contributing factor to her failure to wean from the vent. I believe that her continued ventilator dependence is more indicative of her und erlying septic picture as well as her underlying pulmonary pathology. I would e ndorse her undergoing tracheostomy if necessary. With regards to her sternum, I would be happy to assist with exposure for recons truction with plastic surgery involvement. I do not believe that there is any e mergency to pursuing this at this time. If it truly is sterile sternal dehiscen ce then plating versus rewiring at that time can be considered. If it is ultima tely deemed to be infected then further debridement and considerations will be n ecessary. Timing of this would be more appropriate once she is recovered from her acute pr ocesses including unable to wean from the ventilator. I spent 30 minutes in review of the patient's case and discussion of her situati on with her critical care team. * Olimpia [...] HLD, no nhealing leg wounds, CAD s/p CAB G in 07/2018 who presented to an OSH on 10/16 with shortness of breath and hcest p ains and found to have a RUL pneumonia. She was intubated on 10/17 2/2 worsening r espiratory status and AMS. On 10/19, CTA with R temporal lobe intraparenchymal air and surrounding edema. Wounds (NOT for Pressure Injuries) 10/19/18 2330 Right Leg Surgical Incision (Ac tive) 10/19/18 233 Leg Wound Orientation: Right Wound Type: Surgical Incision Wound Type:: Wound Description (Comments): Dehiscence from prior surgery Wound Image 10/22/2018 11:00 AM Agree With My Assessment? Yes 10/22/2018 12:00 PM Wound Base Assessment Dry;Eschar 10/22/2018 11:00 AM Surrounding Skin Assessment [place] 10/22/2018 11:00 AM Wound Site Closure Open [...] 3 Wounds (NOT for Pressure Injuries) 10/19/18 233 Left;Upper Leg Surgical Incisio n (Active) 10/19/182329 Leg Wound Orientation: Left;Upper Wound Type: Surgical Incision Wound Type:: Wound Description (Comments): Dehiscence from prior surgery Wound Image 10/22/2018 11:00 AM Agree With My Assessment? Yes 10/22/2018 12:00 PM Wound Base Assessment Dry;Eschar;Mak;[place] 10/22/2018 11:00 AM Surrounding Skin Assessment Intact [...] left inner leg from a dehisced surgical incis ion and 1 on her right inner leg. This surgery was done at an OSH. Pt is intub ated and unable to provide a history. Pt will benefit from f/u with her surgeon after discharge. RECOMMEND: Clean with saline and gauze. Apply santyl - nickel thick (requires MD order) to wound bases, cover with dry gauze and secure with tape. Dressing latricia nges daily per floor RN. Will continue to follow. --- Primary Team is responsible for approving and placing wound care orders. -- - Olimpia Louise RN, BSN, CMSRN, CWON Wound Ostomy Nursing Consult Service Office: [phone] Pager: [phone] After Hours Wound/Ostomy Team Pager: [phone] * [place] Adrianne - 10/21/2018 10:29 AM CDT Associated Order(s): CONSULT DIETITIAN CLINICAL NUTRITION Clinical Nutrition Assessment Summary NAME:Etelvina Alonso :1960 AG E: 58 y.o. ADMISSION DATE: 10/19/2018 DAYS ADMITTED: LOS: 2 days Nutrition Assessment of Patient: BMI Categories Adult: Acceptable: 18.5-24.9 Malnutrition Assessment: (pending subjective information) Current Oral Intake: NPO Estimated Calorie Needs: 4236-4971 kcal(25-30 kcal/kg per present wt 52.8kg) Estimated Protein Needs: 53-66 gm(1.0-1.25 gm/kg per present wt 52.8kg) Oral Diet Order: NPO Current EN Order: Isosource 1.5 @ 50 ml/hr + 300 ml water bolus Q6hr. At goal w ould provide 1800 kcal, 82 gm protein and 2112 ml free water. Comments: Pt is a 58 yo female with hx of COPD, HTN, HLD, CAD s/p CABG in 07/2018 with non healing leg wounds who presented to an OSH on 10/16 with shortness of breath and chest pains and was found to have a RUL pneumonia. She was intubated on 10/17 seco ndary to worsening respiratory status and AMS. On 10/19, CTA showed R temporal lob e intraparenchymal air and surrounding edema. Transferred to [facility] for escalation of care. Pt remains intubated and sedated at this time. Receiving 343 kcal over 24hrs with current propofol rate. OGT in place. Dietitian consulted for EN r ecommendations. EN ordered, but not yet started. No family was present in room for diet/wt history. Pt appears thin with mild quadriceps muscle wasting. No weight hx available in EMR. No documented food allergies. Recommendation: With current rate of propofol, recommend Isosource 1.5 @ 35 ml/hr to provide 1260 kcal (1603 kcal with propofol), 57 gm protein and 638 ml free water. Additi onal fluids per primary. If propofol rate reduced or discontinued, would recommend Isosource 1.5 @ 40 ml/hr to provide 1440 kcal, 65 gm protein and 730 ml free water. Given unknown diet hx, recommend closely monitoring for refeeding syndrome. Rec'd correcting electrolyte abnormalities prior to EN initiation (note low K+ o n this morning's labs). Rec'd initiating EN at 10-15 ml/hr and gradually advanc ing by 10 ml/hr Q8-10hrs until goal rate is reached. May also consider 100mg IV thiamin x 3-7 days for refeeding protection. If patient extubated, recommend diet textures per [employer] C[employer]IER recs with eventual goal diet of Cardiac Intervention / Plan: Provided EN recs; will continue to assess EN adequacy/tolerance and adjust nutri tion recs prn Will monitor wt trends, GI symptoms, labs, meds, I/Os Obtain subjective information as able Nutrition Diagnosis: Altered GI function Etiology: intubation/sedation Signs & Symptoms: NPO status with need for EN to meet nutritional needs Goals: Initiate nutrition(EN) Time Frame: Within 24 Hours EN tolerated and meeting >50% of nutritional needs Time Frame: Within [address], LD [phone] * Juvenal Gottlieb MD - 10/20/2018 7:01 PM COMMUNITY ASSOCIATION MANAGER Associated Order(s): CONSULT OTOLARYNGOLOGY (ENT) PHYSICIAN Otolaryngology Consult Note: Admission Date: 10/19/2018 LOS: 1 day Assessment/Plan Etelvina Alonso is a 58 y.o. female with complex medical history including recent C ABG with nonhealing wounds from her bilateral lower extremity vein harvest sites who was recently admitted to outside hospital for worsening cough and altered m ental status. At the outside hospital, she was found to be bacteremic and there is concern for extremity wound infection as well as pneumonia. MRI imaging dem onstrates cerebritis as well as questionable fluid collection versus edema. Add itionally, there are multiple areas of skull base thinning versus dehiscence inc luding the bilateral tegmen and a small right sphenoid wing encephalocele. The skull base lesions are likely related to benign intracranial hypertension. She has partial opacification of her mastoid and middle ear space bilaterally, but n o erosive/coalescent mastoiditis is seen. Clinically, her ear exam does not yannick w acute otitis media, but instead, serous effusions bilaterally. It is difficu lt to know whether these effusions are infectious in nature versus dependent fer ma secondary to lying flat while intubated. It is also possible that her effusi ons could be CSF given the skull base thinning. Nasal endoscopy did not demonst rate any purulence or signs of acute sinusitis. --No acute ENT surgical intervention at this time. Discussed with primary team the possibility of myringotomy with pressure equalizing tube placement, but give n no clinical signs of acute infection and concern for possible CSF leak, we hav e decided to continue monitoring. --Agree with ID consultation and IV antibiotics. --We will discuss with neurosurgery team about any future procedures and determi nation of definitive surgical management. --Will discuss further with staff in regards to additionally recommendations Thank you for this consult, please call with additional questions. Juvenal Gottlieb MD Otolaryngology Resident, [id number] Reason for consult: Concern for otomastoiditis on imaging History of Present Illness: Etelvina Alonso is a 58 y.o. female with complex medica l history which began and 2017 after a CABG which was performed in [facility]. The patient presented to outside hospital on October 16 in [facility] due to worsening sternal pain, cough and nonhealing wounds from bilateral vein harvesting site. She is initially admitted to the hospital and her pulmona ry status and mental status worsened requiring a transfer to the ICU with intuba tion. CTA head was performed on October 19 and demonstrated pneumocephalus. The p atient was then transferred to [facility] for escalation of care. During her current hospitalization she has remained intubated and further imaging including CT head , MRI head and CT IAC have been obtained. Based on these images there is concer n for cerebritis as well as bilateral tegmen dehiscence and a right sphenoid win g encephalocele. The mastoid cavities were noted to be partially opacified and ENT was consulted due to concern for otomastoiditis. 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 Family history reviewed; non-contributory Allergies: [...] mg/day patch 1 patch 1 patch Transdermal QDAY(2 1) nystatin (MYCOSTATIN) oral suspension 500,000 Units 500,000 [...] Meds:acetaminophen Q6H PRN, calcium gluconate IV PRN (On Ca ll from Rx) AND Ionized Calcium PRN AND Notify Physician Ongoing, fentaN YL citrate PF Q2H PRN, ipratropium/albuterol Q4H PRN, magnesium sulfate PRN AN D Magnesium PRN AND Notify Physician Ongoing, oxyCODONE [...] (10/20 1800) Respirations: 21 PER MINUTE (10/20 1799) SpO2: [...] clear, tympanic membranes intact without retraction, serous ef fusions are noted bilaterally, there is no erythema [...] inserted into the left nasal cavity. Mucosa w as noted to be edematous. There is no polypoid degeneration noted. No purulenc e or mucosal irregularities were noted. The scope was then removed and inserted into the right nasal cavity and again the secretions were noted. Mucosal edema was again identified. There is no polypoid degeneration noted. No purulent ma terial or mucosal lesions. The patient tolerated the procedure well without com plications. Lab/Radiology/Other Diagnostic Tests: 24-hour labs: Results for orders placed or performed during the hospital encounter of 10/19/18 (from the past 24 hour(s)) CBC AND [...] Sat-Arterial 92.5 (L) 95 - 99 % [id number] 26.7 21 - 28 MMOL/L CULTURE-RESP,LOWER W/SENSITIVITY [...] O2 Sat-Arterial 97.7 95 - 99 % [id number] 27.9 21 - 28 MMOL/L ACETAMINOPHEN LEVEL [...] Dr. Don discussed these findings with Raquel fam, SEMAJ, by telephone 10/20/2018 4:39 PM. Approved by Abiel Don M.D. on 4:40 PM By my electronic signature, I attest that I have personally reviewed t he images for this examination and formulated the interpretations and opinions e xpressed in this report Finalized by Mayank Price M.D. on 10/20/2018 4:43 PM. Dic tated by Abiel Don M.D. on 10/20/2018 4:39 PM. Result Date: 10/20/2018 EXAM: MRI BRAIN (SKULL BASE PROTOCOL) HISTORY: 58-year-old female, altered ment al status. TECHNIQUE: Multiplanar and multisequence MR imaging of the head was p erformed. This was done both before and after the administration of MultiHanceco ntrast. COMPARISON: Same-day CT head and IACs. FINDINGS: Multiple sequences are degraded by repetitive motion artifact. The known areas of tegmen thinning and d ehiscence are demonstrated on previous CT exams. There is an ovoid focus of rest ricted diffusion within the right temporal lobe measuring up to 1.3 cm with asso ciated FLAIR hyperintensity (series 6, image 31 and series 18, image 8) and part ial rim enhancement. Mild surrounding FLAIR hyperintensity is noted. Small foci of increased DWI and ADC signal (T2 shine through) are seen within the right eugenio trum semiovale (series 6, images 40 and 41) compatible with subacute to chronic lacunar infarct. No evidence of acute ischemic infarct. Additional minimal foci of FLAIR hyperintensity in the cerebral white matter, likely age-appropriate. Th e ventricles are normal in size. There is abnormal FLAIR hyperintensity dependen tly layering bilaterally within the occipital horns of the lateral ventricles wi th associated restricted diffusion. Redemonstration of diffuse arachnoid pits wi th visualization of a small right anterior middle cranial fossa/sphenoid wing en cephalocele (series 12 image 34, series 14 image 21). Nearly empty sella appeara nce is again noted. There is a thin left posterior cerebral convexity FLAIR hype rintense fluid collection which demonstrates restricted diffusion (series 6, janice ge 33). There is associated thin dural enhancement along the left temporal and l ateral cerebral convexity. The central intracranial arterial flow voids are pres erved. Dedicated skull base thin section T2 sequence is essentially nondiagnosti c due to motion. Bilateral mastoid and middle ear effusions with associated enha ncement. Diffuse paranasal sinus mucosal thickening and secretions with moderate air-fluid levels in the maxillary sinuses which demonstrate diffusion restricti on. Dependent fluid noted within the nasopharynx and oropharynx with partially v isualized endotracheal tube. Diffuse symmetric prominence and ill-defined edema within the parotid, submandibular, and sublingual glands with associated enhance ment. The globes and orbits are grossly unremarkable, although, partially obscur ed due to motion on axial imaging. 1. Ovoid focus of diffusion restriction and partial rim enhancement in the basa l right temporal lobe overlying the tegmen suggestive of focal cerebritis and de veloping abscess. 2. Dependent diffusion restricting material within the latera l ventricles suspicious for ventriculitis. 3. Thin complex left posterolateral convexity subdural fluid collection with diffusion restriction suggestive of thi n subdural empyema. 4. Redemonstration of bilateral mastoid and middle ear effu sions with associated enhancement compatible with otomastoiditis. Diffuse acute- appearing paranasal sinusitis. Areas of tegmen thinning and dehiscence are concetta r demonstrated on comparison CTs. 5. Redemonstration of extensive arachnoid pit s with interval visualization of a small right sphenoid wing encephalocele. Give n partially empty sella appearance, findings may represent chronic intracranial hypertension. 6. Diffuse symmetric prominence, ill-defined edema, and enhanceme nt of the salivary glands suggestive of sialoadenitis. By my electronic signatur e, I attest that I have personally reviewed the images for this examination and formulated the interpretations and opinions expressed in this report Ct Head Wo Contrast Result Date: 10/20/2018 CT HEAD WITHOUT CONTRAST HISTORY: 58 years old Female, intraparenchymal air TECH NIQUE: CT images of the head were acquired without intravenous contrast. COMPARI SON: Outside CTA from one day prior. FINDINGS: BRAIN PARENCHYMA: There is focal hypodensities in loss of vicotria-white differentiation within the right inferior te mporal lobe adjacent to a small punctate area of intraparenchymal air (series 30 7B image 55). There is thinning and irregularity of the adjacent tegmen mastoide um and tegmen tympani with right middle ear and mastoid effusion. Bony detail is limited by technique and mild patient motion. Small right rowley radiata white matter hypodensity. No mass effect or midline shift. No intracranial hemorrhage. VENTRICLES/EXTRA-AXIAL SPACES: No hydrocephalus or extra-axial fluid collection s. EXTRACRANIAL STRUCTURES: Extensive arachnoid pits within the bilateral spheno id wings with the aforementioned bony thinning and irregularity over the roof of the right temporal bone. Diffuse paranasal sinus opacification with air-fluid l evels in the sphenoid sinuses and mastoid air cells. High-density structures ove r both globes. 1. Right inferior temporal lobe parenchymal edema with adjacent intracranial ga s and bony irregularity of the tegmen mastoideum and tegmen tympani highly suspi cious for temporal bone skull base defect with adjacent cerebritis. Evaluation o f the osseous structures limited by technique and mild patient motion. CT of the temporal bones as well as skull base MRI would offer more detailed characteriza tion of these areas. 2. Extensive bilateral sphenoid wing arachnoid pits withou t definite skull base dehiscence. The arachnoid pits and an empty sella turcica can be seen in intracranial hypertension. 3. Symmetric although irregular hypod ensity areas overlying the sclera of both globes which may represent ocular medi john devices or scleral calcifications. Finalized by RAYMOND ALEJANDRO M.D. on 10/20 7:56 AM. Dictated by RAYMOND ALEJANDRO M.D. on 10/20/2018 7:49 AM. Patient Active Problem List Diagnosis Date Noted Altered mental status, unspecified 10/20/2018 Pneumonia due to infectious organism 10/19/2018 Acute respiratory failure with hypoxia and hypercapnia (HCC) 10/19/2018 Associated attestation - Jerome Lindsay MD - 10/21/2018 3:44 PM CDT ATTESTATION I personally performed the cardenas portions of the E/M visit, discussed case with re sident and concur with resident documentation of history, physical exam, assessm ent, and treatment plan unless otherwise noted. Staff name: Jerome Lindsay MD Date: 10/21/2018 Patietn seen and examined. there. Logn complciated history reviewed. MS changes last Monday and then itnubated [facility] anil. Tx for multiple medicla issu es. COncern on imaging for possible tegmen dehgiscence and left cerebral empyema ?NS doubts and cerebritis on R and fluid R>L ME and sphenoid encephalocele. Also active influenza and poor healing wounds s/p CABG in [place]. Scans reviewed Alert, NAD Head: Normocephalic/atraumatic intubated Ears: AU Auricles without lesions, EAC clear AU, TMs with reported R serous effu ashli non bulging and no sig inflammation. Eyes: PERRL, conjunctiva clear Nose: Externally without lesions, septum midline, no visible lesions via anterio r rhinoscopy OC/OP: Teeth in good repair, tongue midlinet, no mass or mucosal lesions in OC o r OP visibly or palpably, tonsils symmetric, Oral ETT Larynx: , normal external landmarks Neck: No neck mass or adenopathy, no palpable thyroid masses, no cutaneous webster es bench carpenter: Could not test due to sedation Probable [...] Benny Sepulveda MD - 10/20/2018 9:48 AM COMMUNITY ASSOCIATION MANAGER Associated Order(s): CONSULT INFECTIOUS DISEASES PHYSICIAN Infectious Diseases Initial Consult Today's Date: 10/20/2018 Admission Date: 10/19/2018 Assessment: Strep pneumo bacteremia Bilateral LE wounds due to CABG vein harvest, both tracking deep, L with purulen t drainage Pneumocephalus with surrounding edema on CTA head 10/19/18 at OSH Possible HCAP Acute hypoxic/hypercarbic respiratory failure -Past concern for biliateral LE wound infection as below -10/16 presented to [facility] with a few days of fever, cough -10/16/18: BC x 2 Strep Pneumo R- Clindamycin and erythromcyin S: ceftriaxone (MARCY 0.094), PCN (MARCY 0.064), levo, TMP/S, vanc. Rapid Flu Ag negative. MRSA nasal screen negative. 10/17/18: Sputum culture: Yeast and normal chelsey -Rapid mental status deterioration, intubated -CTA head 10/19/18 at OSH, small area of intraparenchymal air above the mastoid ai r cells and some edema around that area, with concern for possible infection. Pt was transferred to for further management -10/19: CXR patchy mixed alveolar and interstitial opacities -10/20: Tracheal aspirate: < 10 PMN, < 10 squam, no orgs. Cx pending -10/20: LLE swab: GS no orgs no PMNs. Cx pending Concern for bilateral LE wound infection, [facility] Bilateral vein harvest sites on lower extremities from CABG in [place], 07/2018 Multiple cultures in [facility] [place]. 09/07/18- Culture from R leg incision - [...] Mid To Distal Anteroapical Severe Hypokinesis To Akine sis, anterior mitral valve prolapse, moderate posterior lateral jet MV regurg HTN Depression Possible overdose prior to 10/16 admission -gabapentin, APAP/caffeine/butalbital H/o previous LE rash that improved after CABG Recommendations: -Agree with Vancomycin 10-15 trough goal, pharmacy to assist (based on the PCN S of the S pneumo could stop, but would maintain for now for LE wound infection c overage) -Would stop ampicillin, ceftriaxone and start Meropenem 2g IV q8 -Continue Fluconazole for thrush for now, would stop nystatin. Once extubated/t olerating PO if still needed would change back to nystatin. -Review chest imaging with radiology (had CT at OSH, imaging in PACS), if any s /o sternal instability would consult CTS. If not would defer CTS consult to [facility] team. -Would obtain CT of bilateral LE's with contrast, wounds track. If fluid collec tions or s/o necrotizing infection present will need [...] and discussed the patient's care with Dr. Kirt norman, Infectious Diseases Fellow. I agree with the subjective notations, objectiv e findings and agree with the plan of care as documented in this note with edits made by me as necessary. Please note that the consultation has been extensively edited from the original version. Benny Sepulveda MD Driver License Reviewing Officer Division of Infectious Diseases D/W OLIVER attending, Dr. Zelaya History of Present Illness Etelvina Alonso is a 58 y.o. Female PMH significant for CABG [facility] i n 07/2018 who presented to an [facility] after noting worsening coug h and stenral pain from recent sternotomy. Records [...] to worsen. CTA head was done on 10/19/18 which demonstrated a small area of intraparenchymal air above the mastoid air cells and some edema around that area, with concern for possible infection. Pt was transferred to for further management Past medical history and previous information was obtained from his sister. Thi s includes the following: In the past,Pt would have a large red rash all over her legs. This rash maintai darlene until her CABG, where posterior CABG the rash disappeared. The rash looked like "ugly raw red rash" and had seen akbar fonseca for this medication. Notes from the outside hospital indicated that patient received prednisone around Sep. Family indicates that she was also given prednisone for torn ligaments t hat she had received surgery for in December. Whenever she is given prednisone, naresh ent would be noted to be upset and would say that prednisone makes her rash wors e, and post predisone she had ugly blisters that worsened. Present on these rash es were present on the anterior aspects of both of her shins, no higher than ginna n her knees. She had them since aug 2016 at least. Sister also states that patient has been more depressed lately. She has had iss ues with depression in the past and was hospitalized. Sister notes that she too k 80 tablets of gabapentin as well as APAP/caffeine/butalbital, and possibly oth er pain relievers within the last 5 days prior to admission Cultures from [facility]: Blood culture 10/16 x2: Strep Pneumo R- Clindamycin and erythromcyin Susceptible: ceftriaxone-dilut method 0.094, levofloxacin, penicillin e-dilut method 0.064, t rimethoprim, and vancomycin Sputum culture endotrachael 10/17: Yeast and normal chelsey Urine culture 10/16 NGTD Flu rapid- Negative MRSA nasal screen- negative WBC 10/16/18 13.9->10/17/18 5:40 9.3-> 12/17/18 14:30 9.3-> 10/18/18 3:37 7.2-> 10/19/18 3:16 8.3 08/13/18 Loretta glabrata and dublinesis in sputum 09/07/18- Culture from R leg incision- Staph aureus MSSA, enterobacter cloace 09/19/18 L leg pseudomonas R-Aztreonam, sensitive PCP: Akbar fonseca [phone] [facility] Antimicrobial Start date End date Cefepime 300 mg PO BID 10/16/18 10/18/18 Ceftriaxone 10/18/18 10/20/18 Cefedinir 09/23/18 SEED POTATO CUTTER, uncertain timeframe Doxycycline 100 mg PO BID 09/06/18 SEED POTATO CUTTER, uncertain timeframe [id number] mg PO BID 08/23/18 SEED POTATO CUTTER, uncertain timeframe Fluconazole 150 mg PO QD 08/17/18 SEED POTATO CUTTER, uncertain timeframe Vancomycin 10/20/18 active Ampicillin 10/20/18 10/20/18 Fluconazole 10/20/18 active Meropenem 10/20/18 active Bactrim 08/17/18 SEED POTATO CUTTER, uncertain timeframe Estimated Creatinine Clearance: 75.6 mL/min [...] atrial fibrillation (HCC) Pneumothorax tripped over a [employer]verify toy, had a pneumothorax, had lung surgery in hospital [facility] [place] Restless leg syndrome Past Surgical History Past [...] children and 2 grandchildren Son lives in [place] She is , to Leonidas, for 30 years 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, 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[place], and 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 Family History Family History Problem Relation Age of Onset Psoriasis Sister Heart Attack Sister maker 95% blocked s/p stenting Diabetes Sister Heart Disease Brother CT in s, with several stents Allergies No [...] mg/day patch 1 patch 1 patch Transdermal QDAY(2 1) nystatin (MYCOSTATIN) oral suspension 500,000 Units 500,000 [...] sodium chloride 0.9% (NS) 250 mL IVPB ([id number] g) 1 g Intravenous ONCE Followed by vancomycin (VANCOCIN) 750 mg in D5W 150mL IVPB (premade) 15 mg/kg Intravenous Q12H* Continuous Infusions: propofol (DIPRIVAN) 10 mg/mL IV infusion 20 mcg/kg/min (10/20/18 1040) PRN and Respiratory Meds:acetaminophen Q6H PRN, calcium gluconate IV PRN (On Ca ll from Rx) AND Ionized Calcium PRN AND Notify Physician Ongoing, fentaN YL citrate PF Q2H PRN, ipratropium/albuterol Q4H PRN, magnesium sulfate PRN AN D Magnesium PRN AND Notify Physician Ongoing, oxyCODONE Q4H PRN, potassium chloride SR PRN OR potassium chloride PRN, [DISCONTINUED] vancomycin IVPB Q8H* AND vancomycin, pharmacy to manage Per Pharmacy Physical Examination Vital Signs: Last Vital Signs: 24 Hour Ran ge BP: 133/75 (10/20 1099) Temp: 38.3 C (100.9 F) (10/20 0800) Pulse: 120 (10/20 1100) Respirations: 22 PER MINUTE (10/20 1099) SpO2: 98 % (10/20 1099) O2 Delivery: Endotracheal Tube (Oral) (03/09 1100) SpO2 Pulse: 119 (10/20 1100) Height: [...] scar noted with appropriate healing, noted fluctuance underlyi ng skin with paroxysmal movement of the chest concerning with each breath Heart: tachycardiac, no murmurs Abdomen: soft, non-tender, non-distended Extremities: LLE medial wound from vein harvest with erythema, purulent discharg e, induration with deep tracking. RLE medial wound [...] ill with concern for Acute hypoxic/hypercarbic resp fa ilure, S pneumo bacteremia, possible HARDWARE ENGINEER infection, BLE infections. I spent 50 minutes personally reviewing the patient's vital signs, critical care flowsheet s, labs, imaging studies, and clinical status, as well as examining the patient and providing recommendations regarding management including further diagnostic testing and antimicrobial therapy. UNITY ASSOCIATION MANAGER documented in this encounter ED Notes * Sydni Corcoran RN - 11/03/2018 2:17 PM CDT Report given to [facility] and [facility] transport. All pt belongings in the care of . documented in this encounter Miscellaneous Notes * Case Mgmt DC Plan - Misa Herman - 11/03/2018 12:26 PM CDT CUSTOMER SERVICES COORDINATOR NOTE Transfer packet delivered to pt's chart unit per the request of Shelby Espitia [facility] . Misa Herman CMA * Case Mgmt DC Plan - Shelby Espitia - 11/03/2018 10:21 AM CDT Case Management Progress Note NAME:Etelvina Alonso :[birth year] AGE: 58 y.o. ADMISSION DATE: 10/19/2018 DAYS ADMITTED: LOS: 15 days Todays Date: 11/03/2018 Plan D/C today to [facility] via [facility] at 1400 Interventions ? Support [...] team, per team pt stable for d/c. S Berna spoke with Jessica [phone] in admissions with [facility] who v erified facility is able to accept pt today. Jessica would like for [facility] to transp ort pt from [facility] at 1400. SHORTY spoke with pt's spouse Leonidas [phone] who verified he is aware of d/c plan for today and does not have any questions regarding d/c plan. SHORTY spoke with [facility] and arranged Vent transport with heart monitoring ( per MD d/t concern for tachycardia) for 1400. SHORTY made RN and team aware of final d/c plan. SW tasked CUSTOMER SERVICES COORDINATOR to create transfer pa cket. SW completed PCS form. SW to fax d/c orders to [phone] once completed . RN please call report to [phone]. Durable Medical Equipment No service has been selected for the patient. Destination - Selection Complete Service Provider Request Status Selected Services Address Phone Number Fax Numb er [facility] Selected [facility] [address] [facility] [address] [phone] Home Care No service has been selected for the patient. Dialysis/Infusion No service has been selected for the patient. Shelby Espitia LMSW P: [phone] * Case Mgmt DC Plan - Shelby Falcon - 11/02/2018 2:39 PM CDT Case Management Progress Note NAME:Etelvina Alonso :[birth year] AGE: 58 y.o. ADMISSION DATE: 10/19/2018 DAYS ADMITTED: LOS: 14 days Todays Date: 11/02/2018 Plan Discharge to [facility] 11/03/2018 at 2pm via [facility] ambulance transport. Interventions ? Support Support: Pt/Family Updates re:POC or DC Plan ? Info or Referral ? Discharge Planning Discharge Planning: [facility]Term Acute [facility] Covering discussed pt with team. Pt is on a vent, however is able to dischar ge to [facility]ACH on vent. [facility] has received insurance authorization and will be able to accept pt at 2pm on 11/03/18. Shorty notified team and spouse of anticipated discharge date/time. Shorty spoke with a ttrussell. Attending would like to monitor pt overnight before securing transpor tation. Weekend SW to confirm with team in the morning that pt can discharge, arrange tr ansportation, and deliver a transfer packet. Spouse should [...] Status Selected Services Address Phone Number Fax Numb er [facility] Selected Data Analysis Assistant Acute Care [address] [facility] [address] [phone] Home Care No service has been selected [...] performed: Consent obtained, correct patient verified, correct procedur e verified, correct site verified, patient marked as necessary. Pre/Post Procedure Diagnosis: dysphagia Indications: same Anesthesia: Conscious Sedation Procedure(s): GJ tube placement (18F/45cm) Findings: Normal stomach Estimated Blood Loss: None/Negligible Specimen(s) Removed/Disposition: None Complications: None Patient Tolerated Procedure: Well Post-Procedure Condition: unchanged Randall Broussard MD Pager [phone] * Case Mgmt DC Plan - Ellen Frederick - 11/01/2018 10:22 AM CDT Case Management Progress Note NAME:Etelvina Alonso :[birth year] AGE: 58 y.o. ADMISSION DATE: 10/19/2018 DAYS ADMITTED: LOS: 13 days Todays Date: 11/01/2018 Plan Anticipate d/c [facility] tomorrow vs Monday pending pt stability and in surance auth. Interventions SW reviewed EMR and met with Neuro team. Anticipate Peg today. Anticipate trach downsize tomorrow. ? Support Support: Pt/Family Updates re:POC or DC Plan ? Info or Referral ? Discharge Planning Discharge Planning: [facility] SHORTY sent updated clinicals including copy of pt's insurance cards to [facility] . SHORTY spoke with Mila at [facility] to update. Mila educated that [...] for the patient. Ellen Frederick LMSW Phone: [phone] Pager: *[phone] * Case Mgmt DC Plan - Ellen Frederick - 10/31/2018 8:40 AM CDT Case Management Progress Note NAME:Etelvina Alonso :[birth year] AGE: 58 y.o. ADMISSION DATE: 10/19/2018 DAYS ADMITTED: LOS: 12 days Todays Date: 10/31/2018 Plan [facility] pending pt stability, facility acce ptance, and insurance auth. Interventions SHORTY reviewed EMR and met with Neuro team. Anticipate trach downsize on Monday. EN T following. ? Support Support: Pt/Family Updates re:POC or DC Plan ? Info or Referral ? Discharge Planning Discharge Planning: [facility] SHORTY spoke with Mila at [facility] to check status of referral. Mila educa yasmeen that they have clinically accepted for admission and will likely submit for insurance auth tomorrow to aide in tentative admission on Monday. Update 4:00pm: SHORTY spoke with Mila at [facility] and they will need a copy of pt's insurance card. SHORTY spoke with pt's Nolan ([phone]) to request copy of pt's insura nce card. Nolan agreeable to leaving copy of pt's insurance card at bedside. Mandy solorio also aware and in agreement with continued [...] for the patient. Ellen Frederick LMSW Phone: [phone] Pager: *[phone] * Anesthesia Post Op Day 1 - Kimberley Tatum SRNA - 10/30/2018 10:14 AM CDT Anesthesia Follow-Up Evaluation: Post-Procedure Day One Name: Etelvina Alonso : 1960 Age: 58 y.o. Sex: female Procedure Date: 10/29/2018 Procedure: Procedure(s) with comments: MASTOIDECTOMY - SIMPLE, TYMPANOPLASTY - CASE LENGTH 2 HOURS TRACHEOSTOMY PLANNED Physical Assessment Height: 162.6 cm (64") Weight: 51.5 kg (113 lb 8.6 oz) Vital Signs (Last Filed in 24 hours) BP: 90/47 (10/30 899) Temp: 37.2 C (98.9 F) (10/30 08) Pulse: 56 (10/30 0900) Respirations: 21 PER MINUTE (10/30 899) SpO2: [...] (NS) 100 mL IVPB (MB+) 2 g Intra venous Q8H* [START ON 11/06/2018] cefTRIAXone (ROCEPHIN) IVP [...] mg/day patch 1 patch 1 patch Transdermal QDAY(2 1) ofloxacin (FLOXIN) 0.3 % (ophthalmic for otic use) solution 4 drop 4 drop Both E ars TID oseltamivir (TAMIFLU) oral suspension 75 mg [...] 100 ml IV drip 1 mcg/kg/hr (10/30/18 0 358) PRN and Respiratory Meds:acetaminophen Q4H PRN, calcium gluconate IV PRN (On Ca ll from Rx) AND Ionized Calcium PRN AND Notify Physician Ongoing, fentaN YL citrate PF Q1H PRN, ipratropium/albuterol Q4H PRN, magnesium sulfate PRN AN D [CANCELED] Magnesium PRN AND Notify Physician Ongoing, oxyCODONE Q4H PRN , pancrelipase 20,000 Units/ sodium bicarbonate 650 mg(#) PRN (Customs Examiner from Rx), potassium chloride SR PRN OR [...] The patient did not experience any anesthestic complic ations. Pain: Management:adequate Level of Consciousness: sleepy but conscious Hydration:acceptable Airway Patency: patent Respiratory Status: CPAP and ventilator (cpap on vent, 5/5 40%) Cardiovascular Status:hemodynamically stable Regional/Neuroaxial: Comments: Sedated on precedex, sleepy but arousable * Case Mgmt Ellen Cortes - 10/30/2018 8:48 AM CDT Case Management Progress Note NAME:Etelvina Alonso :[birth year] AGE: 58 y.o. ADMISSION DATE: 10/19/2018 DAYS ADMITTED: LOS: 11 days Todays Date: 10/30/2018 Plan Anticipate d/c to [facility] on Monday pending pt stability and insurance a [facility]. Interventions SW reviewed EMR and met with Neuro team. Anticipate trach downsize on Monday. EN T following. ? Support Support: Pt/Family Updates re:POC or DC Plan ? Info or Referral ? [facility] SW left message for Mila at [facility] to update. SW sent updated clinicals to [facility]. ? Medication Needs ? Financial ? [...] for the patient. Ellen Frederick LMSW Phone: [phone] Pager: *[phone] * Procedures (Immed Post or Bedside) - Yessica Burris MD - 10/29/2018 4:40 PM CDT Brief Operative Note Name: Etelvina Alonso is a 58 y.o. female : 1960 706 DATE OF OPERATION: 10/29/2018 Date: 10/29/2018 Preoperative [...] was noted to be necrotic and was re moved 6-0 cuffed shiley secured in place between tracheal rings 2-3 Estimated Blood Loss: 20 ml Specimen(s) Removed/Disposition: ID Type Source Tests Collected by Time Destination 1 : MASTOID CONTENTS Tissue Ear SURGICAL PATHOLOGY Duy Burch M D 10/29/2018 1525 Complications: None Implants: christina PE tubes, 6-0 cuffed shiley Drains: None Disposition: ICU - stable Yessica Burris MD Pager [phone] * Operative Report (Direct Entry) - Duy Burch MD - 10/29/2018 4:00 PM CDT OPERATIVE REPORT Name: Etelvina Alonso is a 58 y.o. female : 1960 706 DATE OF OPERATION: 10/29/2018 Surgeon(s) and Role: [...] was noted to be necrotic and was re moved 6-0 cuffed shiley secured in place between tracheal rings 2-3 Description and Findings of Operative Procedure: After informed consent was obtained, the patient was brought back to the operati ng room and placed in supine position. Anesthesia was induced by a combination o f intravenous and inhalation technique with endotracheal intubation achieved wit hout issue. The eyes were lubricated and taped. A head donut was placed. The bed was turned 180 degrees. The white and green nerve monitor electrodes were place d in the left shoulder. The red and blue nerve monitor electrodes were placed in the right orbicularis oculi and horacio muscles, respectively. These electrodes we re connected to the electrode bed. The nerve monitoring equipment was set up in usual fashion with appropriate signaling confirmed. A timeout was taken. A speculum was inserted in the patient's bilateral ears, and the ear canal and t ympanic membrane were inspected under binocular microscopy. We first viewed the right ear. An intact drum was noted, a myringotomy blade was used to make an inc ision in the anterior inferior quadrant. A christina tube was placed and confirmed in good position. We then viewed the left ear. An intact drum was noted, a myrin gotomy blade was used to make an incision in the anterior inferior quadrant. A s heehy tube was placed and confirmed in good position. A curvilinear incision was made in the postauricular region from linea temporali s to mastoid tip with 15-scalpel blade through the skin and subcutaneous layer d own to the superficial layer of the deep temporalis fascia. We next made a cardenas i ncision in usual fashion with Bovie cautery through the deeper tissue layers essie n to bone. A Rupali elevator was used to elevator a musculoperiosteal flap from posteriorly to anteriorly. The posterior canal wall was identified. The vascula r strip and musculoperiosteal flap were retracted away with a self-retaining ret ractor. Under binocular microscopy, cortical mastoidectomy was performed. We junie ntually opened up Jennifer's septum and the antrum until we entered the middle ea r space. 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 Curette was us ed to excise additional mastoid air cells. This was done to remove diseased muco sa and completed prior mastoidectomy. with removal of mastoid air cells choleste atoma was serially stripped from the existing mastoid bowl.The incus was noted w ithin the middle ear with granulation tissue. The incus was removed. The mastoid was irrigated. The wound was then closed in layers with 3-0 Vicryl to close the periosteum and the deep muscle layers and a running 5-0 fast absorbable gut on the skin. She tolerated the procedure well. All instrument, sponge, and needle c ounts were correct times 2. The bed was then turned back 180 to face anesthesia. The anterior neck landmarks were inspected and palpated. A 2 cm incision line was marked in a horizontal ne ck crease below the level of the cricoid. The incision was injected with 3 cc of 1% lidocaine with epinephrine. The neck was prepped and draped in sterile fashi on. Incision was made with 15-scalpel blade through the skin down to the subcuta neous layer. We continued our dissection until we reached the level of the strap muscles. We then divided the strap muscles along the midline raphe and retracte d them away laterally. The thyroid tissue was then carefully transected at midli ne and retracted away laterally, with care to control bleeding along the way. We identified the cricoid and inserted a cricoid hook to retract the airway superi deyvi. The trachea was cleared of residual fascia with a Kitner. We then asked th e Anesthesia team to increase FiO2 to 100% to pre-oxygenate the patient. A trach window was made. With the patient well-oxygenated, the Anesthesia team then def lated the cuff of the endotracheal tube and advanced the tube down the airway. I ncision was made into the trachea with 15-scalpel blade between tracheal rings 2 -3. The Anesthesia team then backed out the endotracheal tube until the tip of t he tube was just above the tracheotomy window. A 6-0 cuffed Shiley tracheostomy tube was inserted through the window into the airway with cuff inflated. The ane sthesia circuit was connected to the tracheostomy tube with appropriate CO2 conf irmation made. The tracheostomy tube was secured to the skin with four simple in terrupted stitches of 2.0 Silk. All retracting instruments were removed. The old endotracheal tube was removed as well. The tracheostomy tube was further reinfo rced with neck ties. All counts were correct. The patient was eventually transfe rred to the recovery room in stable condition. Duy German was present and performed the procedure Estimated Blood Loss: 5 ml Specimen(s) Removed/Disposition: ID Type Source Tests Collected by Time Destination 1 : MASTOID CONTENTS Tissue Ear SURGICAL PATHOLOGY Duy Burch M D 10/29/2018 0376 Yessica Burris MD Pager [phone] * Case Mgmt DC Plan - Jaymie Child - 10/29/2018 1:53 PM CDT Case Management Progress Note NAME:Etelvina Alonso :[birth year] AGE: 58 y.o. ADMISSION DATE: 10/19/2018 DAYS ADMITTED: LOS: 10 days Todays Date: 10/29/2018 Plan Plan for OR today. Anticipate Ltach placement when medically stable. Referral pending at [facility]. Interventions ? Support Spouse, Nolan Alonso [phone]-cell Sister, Demetra Browning -cell ? Info or Referral ? Discharge Planning Discharge Planning: [facility] SW assisting primary SW, Ellen Frederick, with ongoing d/c planning. SW revie wed EMR for poc update and discussed with primary SW re: plan for OR today for t [facility], anticipate d/c to Ltach when medically stable, likely the end of the week. SHORTY attempted to meet with pt's spouse, Nolan, at the bedside x2 -- spouse o ff unit, but RN reports spouse has been present at hospital today. SW attempted to contact spouse on pt's cell phone for follow up -- no answer. Per RN, spouse does not have his own cell phone and has been using patient's p erinn on/off, but is not always easy to reach. SW staff will continue to follow for ongoing d/c planning and support, with a nticipated Ltach placement. 14:15 -- SHORTY notified by RN that spouse has returned to bedside. SHORTY met with spouse, explained SW role, and discussed anticipated Ltach placement once pt was medically stable. SW provided pt's spouse with an Ltach list for review. 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 Spouse reports he started a new job in [place], [place], and indicates he will have to report back to his job site in [facility] in the next day or two. Pt's spouse reports he obtained a new cell phone, and will be available for o ngoing d/c planning at the number listed above -- SHORTY updated Facesheet with eliezer adams's new contact information. Spouse reports preference for [...] has been selected for the patient. Katelynn Child, QUINTEN, [facility] [phone] * Case Mgmt DC Plan - Zakloida Natalia - 10/26/2018 1:01 PM CDT Case Management Progress Note NAME:Etelvina Alonso :[birth year] AGE: 58 y.o. ADMISSION DATE: 10/19/2018 DAYS ADMITTED: LOS: 7 days Todays Date: 10/26/2018 Plan DCP Ongoing: SHORTY anticipates pt to DC LTACH pending family agreement, insurance a [facility], and medical stability. Interventions ? Support Support: Pt/Family Updates re:POC or DC Plan Assisting SHORTY reviewed EMR, team gained consent form pt's spouse:Leonidas for Tympa nomastoidectomy Monday. Pt currently on Q8 IV Cefepime and IV Fluconazole [id number] DC to LTACH mid next week. ? Info or Referral ? Discharge Planning Discharge Planning: [facility] No contact number provided for pt's spouse in demographics. SHORTY contacted pt's emergency contact, sister: demetra [phone] and left requesting callback to discuss DCP. SHORTY also contacted pt's home phone number:[phone]-message indicated phone number is pt's cell phone-SW did not leave . UPDATE:[id number] SHORTY received callback from Demetra who confirms pt's spouse is at bedside and chelsey strickland be available at bedside this weekend to [...] has been selected for the patient. -Hortensia Spence, QUINTEN *[phone] * Case Mgmt DC Plan - Barbara Mckeon - 10/26/2018 8:47 AM CDT Request for Benefits Received request from [facility] Ellen Frederick to check LTACH benefits [...] to month plan, she is currently good throu gh the month of October. Barbara Mckeon Waiter And Cashier For further assistance please contact [facility] Ellen Frederick *[phone] * Procedures (Immed Post or Bedside) - Pankaj Bunn MD - 10/23/2018 4:31 PM CDT Lumbar Puncture Procedure Note Procedure: Lumbar puncture Indications: Infectious workup Physicians:, Dr. Menendez, Dr. Bunn, Dr. Perez Procedure Details Lumbar Puncture: Under sterile conditions and with the patient in the Left lateral position , the skin of the lower back was prepped using Povidone Iodine and covered with a sterile drape. Local anesthesia was applied to the skin and subcutaneous tiss ues at lumbar level L4. A 20 gauge spinal needle was inserted and advanced to t he subarachnoid space. The opening pressure was 23.5 cm, and 20 mL of Clear, co lorless fluid was removed. The needle was withdrawn [...] 10/22/2018 1:05 PM CDT Case Management Admission Assessment NAME:Etelvina Alonso : 2 AGE: 58 y.o. ADMISSION DATE: 10/19/2018 DAYS ADMITTED: LOS: 3 days Todays Date: 10/22/2018 Source of Information: patient's sister/Demetra Plan Plan: Case Management Assessment, Assist PRN with SW/NCM Services, Other (commen t)(d/c planning ongoing) NCM to pt bedside and pt unable to perform assessment and pt sister/Demetra milan collin call to answer questions. Demetra states that the patient, her spouse/Leonidas, their daughter Ibeth Alonzo a nd her two children Clayton Alonzo, a 5 yo son, and daughter George Alonzo a 15 mo old daughter all live in Demetra's ONE bedroom HUD housing apartment (si nce before XMas). Total of 6 people in one bedroom apartment sharing recliner, couch etc for housi ng/living arrangement. Patient owns DME of: RW, Nebulizer, toilet riser. Patient requires transportation and Demetra currently gaining access to her own s on's car as he is incarcerated currently. NCM to pass assessment information to Primary CM team D/c dispo/planning ongoing Patient Address/Phone [address] [place] [phone] (home) Emergency Contact Extended Emergency Contact Information Primary Emergency Contact: .Demetra Mobile Relation: Sister Concrete Float Maker needed? No Healthcare Directive Transportation Does the [...] or anticipated on discharge: (pt sister and spo use assist in driving ) Who provides assistance [...] Financial Resources ? Coverage Primary Insurance: Commercial insurance([employer] [place]) ? Source of Income ? Financial Assistance Needed? Continue to assess Psychosocial Needs ? Mental Health Mental Health History: No ? Substance Use History Substance Use History Screen: Yes Comment: patient smokes 2 ppd x45 years ? Other na Current/Previous Services ? PCP Akbar Fonseca, , ? Pharmacy [facility] [address] [place] [phone] ? Durable Medical Equipment Durable Medical Equipment at home: Grab bars, Roller Walker, Toilet riser, Nebul izer ? Home Health Receiving home health: No [...] ? Outpatient Therapy PT: No OT: No FAST FOOD CASHIER: No ? [facility]ci Facility/Care Home SNF: No NH: No ? Inpatient Rehab IPR: No ? [facility]: No ? Acute Hospital Stay Acute Hospital Stay: No Margo Smith RN Nurse Skating Carhop * Case Mgmt DC Plan - Darcy Smith - 10/22/2018 11:55 AM CDT Case Management Progress Note NAME:Etelvina Alonso :[birth year] AGE: 58 y.o. ADMISSION DATE: 10/19/2018 DAYS ADMITTED: LOS: 3 days Todays Date: 10/22/2018 Plan NCM to pt room where she is in ICU with notes indicating obtunded status and kana ne in room with mits on. NCM placed call to sister: Demetra with identifying VMM requesting NON EMERGENT c all back for case management assessment. Interventions ? [...] for the patient. Margo Smith RN Nurse Skating [employer]hop documented in this encounter Plan of Treatment Date/Time Name Type Priority Associated Diagnoses 10/29/2018 10:55 AM CDT TRANSFUSE RBC'S Blood Bank Routine NON-BLEEDING PT 10/29/2018 10:55 AM CDT TRANSFUSE RBC'S Blood Bank Routine NON-BLEEDING PT Order Schedule Name Type Priority Associated Diagnoses ONCE for 1 Occurrences starting 10/29/2018 SURGICAL PATHOLOGY Pathology Routine Altered mental status, unspecified altered mental [...] METABOLIC PANEL Routine 10/30/2018 4:05 AM CDT POC BLOOD GAS EDDI 10/29/2018 3:37 PM CDT POC SODIUM 10/29/2018 3:37 PM CDT POC POTASSIUM 10/29/2018 3:37 PM CDT POC IONIZED CALCIUM 10/29/2018 3:37 PM CDT POC HEMATOCRIT 10/29/2018 3:37 PM CDT TRACHEOSTOMY PLANNED 10/29/2018 Altered mental status, 2:16 PM CDT unspecified altered mental status type MASTOIDECTOMY - SIMPLE 10/29/2018 Altered mental status, 2:16 PM CDT unspecified altered mental status type US ABDOMEN COMPLETE Routine 10/29/2018 8:13 AM [...] VIRAL PANEL PCR Routine 10/20/2018 11:05 PM COMMUNITY ASSOCIATION MANAGER ABDOMEN AP ONLY Routine 10/20/2018 8:25 PM COMMUNITY ASSOCIATION MANAGER ABDOMEN AP ONLY Routine 10/20/2018 8:18 PM COMMUNITY ASSOCIATION MANAGER AMMONIA Routine 10/20/2018 3:57 PM COMMUNITY ASSOCIATION MANAGER LIVER FUNCTION PANEL Routine 10/20/2018 3:57 PM COMMUNITY ASSOCIATION MANAGER MRI HEAD WO/W CONTRAST STAT 10/20/2018 3:41 PM COMMUNITY ASSOCI[employer] MANAGER CT LOWER EXTREM W CONT Routine 10/20/2018 BILAT 1:56 PM COMMUNITY ASSOCI[employer] MANAGER CT INT AUD CANAL WO Routine 10/20/2018 CONTRAST 1:50 PM COMMUNITY ASSOCIATION MANAGER POTASSIUM Routine 10/20/2018 11:17 AM COMMUNITY ASSOCIATION MANAGER ACETAMINOPHEN LEVEL Routine 10/20/2018 11:17 AM COMMUNITY ASSOCIATION MANAGER 2-D + DOPPLER Routine 10/20/2018 ECHOCARDIOGRAM 10:08 AM COMMUNITY ASSOCIATION MANAGER BLOOD GASES, ARTERIAL Routine 10/20/2018 3:49 AM COMMUNITY ASSOCIATION MANAGER CBC AND DIFF Routine 10/20/2018 3:38 AM COMMUNITY ASSOCIATION MANAGER PHOSPHORUS Routine 10/20/2018 3:38 AM COMMUNITY ASSOCIATION MANAGER MAGNESIUM Routine 10/20/2018 3:38 AM COMMUNITY ASSOCIATION MANAGER IONIZED CALCIUM Routine 10/20/2018 3:38 AM COMMUNITY ASSOCIATION MANAGER BASIC METABOLIC PANEL Routine 10/20/2018 3:38 AM COMMUNITY ASSOCIATION MANAGER GRAM STAIN 10/20/2018 1:28 AM COMMUNITY ASSOCIATION MANAGER CULTURE-WOUND/TISSUE/FLUI Routine 10/20/2018 D(AEROBIC 1:28 AM COMMUNITY ASSOCIATION MANAGER ONLY)W/SENSITIVITY GRAM STAIN 10/20/2018 1:07 AM COMMUNITY ASSOCIATION MANAGER CULTURE-RESP,LOWER Routine 10/20/2018 W/SENSITIVITY 1:07 AM COMMUNITY ASSOCIATION MANAGER BLOOD GASES, ARTERIAL STAT 10/20/2018 1:01 AM COMMUNITY ASSOCIATION MANAGER CT HEAD WO CONTRAST Routine 10/20/2018 12:45 AM COMMUNITY ASSOCIATION MANAGER CULTURE-BLOOD Routine 10/20/2018 W/SENSITIVITY 12:12 AM COMMUNITY ASSOCIATION MANAGER CULTURE-BLOOD Routine 10/20/2018 W/SENSITIVITY 12:11 AM COMMUNITY ASSOCIATION MANAGER CHEST SINGLE VIEW STAT 10/19/2018 11:45 PM COMMUNITY ASSOCIATION MANAGER PHENCYCLIDINES-URINE Routine 10/19/2018 RANDOM 11:36 PM COMMUNITY ASSOCIATION MANAGER OPIATES-URINE RANDOM Routine 10/19/2018 11:36 PM COMMUNITY ASSOCIATION MANAGER COCAINE-URINE RANDOM Routine 10/19/2018 11:36 PM COMMUNITY ASSOCIATION MANAGER CANNABINOIDS-URINE RANDOM Routine 10/19/2018 11:36 PM COMMUNITY ASSOCIATION MANAGER BENZODIAZEPINES-URINE Routine 10/19/2018 RANDOM 11:36 PM COMMUNITY ASSOCIATION MANAGER BARBITURATES-URINE RANDOM Routine 10/19/2018 11:36 PM COMMUNITY ASSOCIATION MANAGER AMPHETAMINES-URINE RANDOM Routine 10/19/2018 11:36 PM COMMUNITY ASSOCIATION MANAGER PROTIME INR (PT) STAT 10/19/2018 11:36 PM COMMUNITY ASSOCIATION MANAGER CBC AND DIFF STAT 10/19/2018 11:36 PM COMMUNITY ASSOCIATION MANAGER PHOSPHORUS STAT 10/19/2018 11:36 PM COMMUNITY ASSOCIATION MANAGER MAGNESIUM STAT 10/19/2018 11:36 PM COMMUNITY ASSOCIATION MANAGER LACTIC ACID(LACTATE) STAT 10/19/2018 11:36 PM COMMUNITY ASSOCIATION MANAGER IONIZED CALCIUM STAT 10/19/2018 11:36 PM COMMUNITY ASSOCIATION MANAGER COMPREHENSIVE METABOLIC STAT 10/19/2018 PANEL 11:36 PM COMMUNITY ASSOCIATION MANAGER TELEMETRY STRIPS-SCAN 10/19/2018 12:00 AM COMMUNITY ASSOCIATION MANAGER ECG-SCAN 10/19/2018 12:00 AM COMMUNITY ASSOCIATION MANAGER documented in this encounter Results * PHOSPHORUS (11/03/2018 5:42 AM CDT) Phosphorus 5.0 (H)Comment: NOTE NEW 2.0 - 4.5 MG/DL [facility] REFERENCE RANGES Specimen Blood Performing Organization Address [facility] Phone Number MAIN LAB [address] [place] [address] * MAGNESIUM (11/03/2018 5:42 AM CDT) Magnesium 2.2 1.6 - 2.6 mg/dL [facility] MAIN [facility] Specimen Blood Performing Organization Address [facility] Phone Number MAIN LAB [address] [place] [address] * BASIC METABOLIC PANEL (11/03/2018 5:42 AM [...] >60 >60 mL/min [facility] Comment: Turkish The eGFR is not validated for use in drug dosing adjustments.Continue to use estimated creatinine clearance per dosing reference text.Please contact the Clinical Pharmacist for questions. eGFR >60 >60 mL/min [facility] Turkish Comment: The eGFR is not validated for use in drug dosing adjustments.Continue to use estimated creatinine clearance per dosing reference text.Please contact the Clinical Pharmacist for questions. Specimen Blood Performing Organization Address [facility] Phone Number MAIN LAB [address] [place] [address] * CBC (11/03/2018 5:42 AM CDT) White [...] MAIN LAB Specimen Blood Performing Organization Address [facility] Phone Number MAIN LAB [address] [place] [address] * IONIZED CALCIUM (11/03/2018 5:42 AM CDT) Ionized Calcium 1.26 1.0 - 1.3 MMOL/L MAIN LAB Specimen Blood Performing Organization Address City/[facility] Phone Number MAIN LAB [address] [place] [phone] * PROCALCITONIN (11/02/2018 9:55 AM CDT) Procalcitonin 0.07 <0.10 NG/ML MAIN LAB Specimen Blood Performing Organization Address City/[facility] Phone Number MAIN LAB [address] [place] [address] * PHOSPHORUS (11/02/2018 3:45 AM CDT) Phosphorus 4.4Comment: NOTE NEW REFERENCE 2.0 - 4.5 MG/DL [facility]IN [facility] RANGES Specimen Blood Performing Organization Address City/[facility] Phone Number MAIN LAB [address] [place] [address] * MAGNESIUM (11/02/2018 3:45 AM CDT) Magnesium 2.3 1.6 - 2.6 mg/dL MAIN LAB Specimen Blood Performing Organization Address City/[facility]/Zipcode Phone Number MAIN LAB [address] [place] [address] * BASIC METABOLIC PANEL (11/02/2018 3:45 AM CDT) Pathologist [facility] Sodium 139 137 - 147 MMOL/L K[facility] [...] >60 >60 mL/min [facility] Comment: Turkish The eGFR is not validated for use in drug dosing adjustments.Continue to use estimated creatinine clearance per dosing reference text.Please contact the Clinical Pharmacist for questions. eGFR >60 >60 mL/min [facility] Turkish Comment: The eGFR is not validated for use in drug dosing adjustments.Continue to use estimated creatinine clearance per dosing reference text.Please contact the Clinical Pharmacist for questions. Specimen Blood Performing Organization Address City/[facility]/Zipcode Phone Number MAIN LAB [address] [place] [address] * CBC AND DIFF (11/02/2018 3:45 AM CDT) Pathologist [facility] White Blood 11.4 (H) 4.5 - 11.0 [...] Basophil Count Specimen Blood Performing Organization Address City/[facility]/Zipcode Phone Number [facility] MAIN [facility] [address] [place] [address] * IONIZED CALCIUM (11/02/2018 3:45 AM CDT) Ionized Calcium 1.29 1.0 - 1.3 MMOL/L [facility] Specimen Blood Performing Organization Address [facility] Phone Number MAIN LAB [address] [place] [address] * IR GASTROSTOMY (11/01/2018 5:03 PM CDT) [...] placed over the Amplatz wire, a 22 Kazakh peel-away sheath was advanced over the wire into the gastric lumen. The EZIO 1 catheter was then advanced over the Amplatz wire which was then exchanged for a stiff Glidewire. An 18 Kazakh 45 cm gastrojejunostomy tube was advanced over [...] placed over the Amplatz wire, a 22 Kazakh peel-away sheath was advanced over the wire into the gastric lumen. The EZIO 1 catheter was then advanced over the Amplatz wire which was then exchanged for a stiff Glidewire. An 18 Kazakh 45 cm gastrojejunostomy tube was advanced over [...] on 11/02/2018 8:00 AM. Performing Organization Address [facility] Phone Number RAD RESULTS * MAGNESIUM (11/01/2018 1:53 PM CDT) Magnesium 2.6 1.6 - 2.6 mg/dL MAIN LAB Specimen Blood Performing Organization Address [facility] Phone Number MAIN LAB [address] [place] [address] * POTASSIUM (11/01/2018 1:53 PM CDT) Potassium 5.0 3.5 - 5.1 MMOL/L MAIN LAB Specimen Blood Performing Organization Address [facility] Phone Number MAIN LAB [address] [place] [address] * IONIZED CALCIUM (11/01/2018 4:15 AM CDT) Ionized Calcium 1.29 1.0 - 1.3 MMOL/L MAIN LAB Specimen Blood Performing Organization Address [facility] Phone Number MAIN LAB [address] [place] [address] * PHOSPHORUS (11/01/2018 4:15 AM CDT) Phosphorus 4.4Comment: NOTE NEW REFERENCE 2.0 - 4.5 MG/DL MAIN LAB RANGES Specimen Blood Performing Organization Address [facility] Phone Number MAIN LAB [address] [place] [address] * MAGNESIUM (11/01/2018 4:15 AM CDT) Magnesium 2.0 1.6 - 2.6 mg/dL [facility] MAIN [facility] Specimen Blood Performing Organization Address City/State/Zipcode Phone Number [facility] MAIN [facility] [address] [place] [address] * BASIC METABOLIC PANEL (11/01/2018 4:15 AM CDT) [facility] Sodium 138 137 - 147 MMOL/L K[facility] [...] >60 >60 mL/min [facility]IN [facility] Comment: Turkish The eGFR is not validated for use in drug dosing adjustments.Continue to use estimated creatinine clearance per dosing reference text.Please contact the Clinical Pharmacist for questions. eGFR >60 >60 mL/min [facility]IN [facility] Turkish Comment: The eGFR is not validated for use in drug dosing adjustments.Continue to use estimated creatinine clearance per dosing reference text.Please contact the Clinical Pharmacist for questions. Specimen Blood Performing Organization Address City/State/Zipcode Phone Number [facility] MAIN [facility] [address] [place] [phone] * CBC AND DIFF (11/01/2018 4:15 AM CDT) Pathologist [facility] White Blood 8.5 4.5 - 11.0 K/UL [...] Address City/State/Zipcode Phone Number [facility]IN [facility] [address] [place] [address] * CHEST SINGLE VIEW (10/31/2018 11:48 AM [...] on 10/31/2018 12:12 PM. Performing Organization Address [facility] Phone Number RAD RESULTS * IONIZED CALCIUM (10/31/2018 2:50 AM CDT) Ionized Calcium 1.35 (H) 1.0 - 1.3 MMOL/L [facility] Specimen Blood Performing Organization Address [facility] Phone Number MAIN LAB [address] [place] [address] * PHOSPHORUS (10/31/2018 2:50 AM CDT) Phosphorus 5.8 (H)Comment: NOTE NEW 2.0 - 4.5 MG/DL [facility] MAIN [facility] REFERENCE RANGES Specimen Blood Performing Organization Address [facility] Phone Number MAIN LAB [address] [place] [address] * MAGNESIUM (10/31/2018 2:50 AM CDT) Magnesium 2.1 1.6 - 2.6 mg/dL [facility] MAIN [facility] Specimen Blood Performing Organization Address [facility] Phone Number MAIN LAB [address] [place] [address] * BASIC METABOLIC PANEL (10/31/2018 2:50 AM [...] >60 >60 mL/min [facility]IN [facility] Comment: Turkish The eGFR is not validated for use in drug dosing adjustments.Continue to use estimated creatinine clearance per dosing reference text.Please contact the Clinical Pharmacist for questions. eGFR >60 >60 mL/min [facility]IN [facility] Turkish Comment: The eGFR is not validated for use in drug dosing adjustments.Continue to use estimated creatinine clearance per dosing reference text.Please contact the Clinical Pharmacist for questions. Specimen Blood Performing Organization Address City/State/Zipcomt Phone Number [facility] MAIN [facility] [address] [place] [address] * CBC AND DIFF (10/31/2018 2:50 AM [...] Basophil Count Specimen Blood Performing Organization Address City/[facility]/Zipcode Phone Number MAIN LAB [address] [place] [address] * BASIC METABOLIC PANEL (10/30/2018 7:45 PM [...] LAB Calcium 9.9 8.5 - 10.6 MG/DL MAIN LAB eGFR Non >60 >60 mL/min MAIN LAB Comment: Turkish The eGFR is not validated for use in drug dosing adjustments.Continue to use estimated creatinine clearance per dosing reference text.Please contact the Clinical Pharmacist for questions. eGFR >60 >60 mL/min MAIN LAB Turkish Comment: The eGFR is not validated for use in drug dosing adjustments.Continue to use estimated creatinine clearance per dosing reference text.Please contact the Clinical Pharmacist for questions. Specimen Blood Performing Organization Address City/[facility]/Zipcode Phone Number MAIN LAB [address] [place] [address] * POC IONIZED CALCIUM (10/30/2018 7:25 PM CDT) Ionized 1.43 (H) 1.0 - 1.3 MMOL/L MAIN LAB Calcium-POC Specimen Performing Organization Address City/[facility]/Zipcode Phone Number MAIN LAB [address] [place] [address] * POC SODIUM (10/30/2018 7:25 PM CDT) Sodium-POC 150 (H) 137 - 147 MMOL/L MAIN LAB Specimen Performing Organization Address City/[facility]/Zipcode Phone Number MAIN LAB [address] [place] [address] * POC POTASSIUM (10/30/2018 7:25 PM CDT) Potassium-POC 4.2 3.5 - 5.1 MMOL/L MAIN LAB Specimen Performing Organization Address City/State/Zipcode Phone Number MAIN LAB [address] [place] [address] * POC HEMATOCRIT (10/30/2018 7:25 PM CDT) Hemoglobin POC 11.2 (L) 12.0 - 15.0 GM/DL MAIN LAB Hematocrit POC 33.0 (L) 36 - 45 % MAIN LAB Specimen Performing Organization Address City/[facility] Phone Number MAIN LAB [address] [place] [address] * POC BLOOD GAS ARTERIAL (10/30/2018 7:25 PM CDT) PH-ART-POC 7.34 (L) 7.35 - 7.45 [facility] MA[facility] [id number] 50 (H) 35 - 45 MMHG [facility] MAIN [facility] PO2-ART-POC 103 (H) 80 - 100 MMHG [facility] MAIN [facility] Base Ex-ART-POC 1.0 MMOL/L MAIN LAB O2 Sat-ART-POC 97.0 95 - 99 % MAIN LAB Bicarbonate-ART 27.2 21 - 28 MMOL/L MAIN LAB -POC Specimen Performing Organization Address [facility] Phone Number MAIN LAB [address] [place] [address] * SURGICAL PATHOLOGY (10/30/2018 9:38 AM CDT) PATHOLOGY [facility]IN [email or web address] Department of Pathology and Laboratory Medicine [address] [place] [address] Surgical Pathology Office:[phone] :[phone] SURGICAL PATHOLOGY REPORT NAME: ETELVINA ALONSO SURG PATH #: [id number] MR #: [id number] SPECIMEN CLASS: [facility] BILLING #: [id number] ALT ID #:LOCATION: [id number] DATE OF PROCEDURE: [...] report. +++ +++ Kartik Mabry MD Resident [facility]/10/30/2018 ############################## ############################## ############ Material Received: A: mastoid contents History: 58-year-old female history of altered mental status, unspecified altered mental status type Gross Description: A. Fixative: Formalin Labeled: "Mastoid contents" Dimensions: 1.0 x 0.2 x 0.2 cm in aggregate Decalcification solution used: No Cassette A1- Business Consultant section of specimen.(lmt) lt10/30/2018 Specimen Performing Organization Address [facility] Phone Number [facility] LAB [address] [place] [address] * IONIZED CALCIUM (10/30/2018 4:05 AM CDT) Ionized Calcium 1.26 1.0 - 1.3 MMOL/L [facility] LAB Specimen Blood Performing Organization Address [facility]/Zipcode Phone Number [facility] LAB [address] [place] [address] * PHOSPHORUS (10/30/2018 4:05 AM CDT) Phosphorus 5.8 (H)Comment: NOTE NEW 2.0 - 4.5 MG/DL [facility] LAB REFERENCE RANGES Specimen Blood Performing Organization Address [facility]/Zipcode Phone Number [facility] LAB [address] [place] [phone] * MAGNESIUM (10/30/2018 4:05 AM CDT) Pathologist [facility] Magnesium 2.1 1.6 - 2.6 mg/dL [facility] MAIN [facility] Specimen Blood Performing Organization Address City/[facility]/Zipcode Phone Number MAIN LAB [address] [place] [phone] * BASIC METABOLIC PANEL (10/30/2018 4:05 AM CDT) Pathologist [facility] Sodium 135 (L) 137 - 147 MMOL/L [...] >60 >60 mL/min [facility]IN [facility] Comment: Turkish The eGFR is not validated for use in drug dosing adjustments.Continue to use estimated creatinine clearance per dosing reference text.Please contact the Clinical Pharmacist for questions. eGFR >60 >60 mL/min [facility] MAIN [facility] Turkish Comment: The eGFR is not validated for use in drug dosing adjustments.Continue to use estimated creatinine clearance per dosing reference text.Please contact the Clinical Pharmacist for questions. Specimen Blood Performing Organization Address City/[facility]/Zipcode Phone Number MAIN LAB [address] [place] [address] * CBC AND DIFF (10/30/2018 4:05 AM [...] Count 481 (H) 150 - 400 K/UL MAIN LAB MPV 9.9 7 - 11 FL MAIN LAB Neutrophils 62 41 - 77 % MAIN LAB Lymphocytes 22 (L) 24 - 44 % MAIN LAB Monocytes 12 4 - 12 % MAIN LAB Eosinophils 2 0 - 5 % MAIN LAB Basophils 2 0 - 2 % MAIN LAB Absolute 6.90 1.8 - 7.0 K/UL MAIN LAB Neutrophil Count Absolute Lymph 2.40 1.0 - 4.8 K/UL MAIN LAB Count Absolute 1.30 (H) 0 - 0.80 K/UL MAIN LAB Monocyte Count Absolute 0.20 0 - 0.45 K/UL MAIN LAB Eosinophil Count Absolute 0.20 0 - 0.20 K/UL MAIN LAB Basophil Count Specimen Blood Performing Organization Address City/[facility] Phone Number MAIN LAB [address] [place] [address] * POC IONIZED CALCIUM (10/29/2018 3:37 PM CDT) [facility] Ionized 1.29 1.0 - 1.3 MMOL/L MAIN LAB Calcium-POC Specimen Performing Organization Address City/[facility] Phone Number MAIN LAB [address] [place] [address] * POC SODIUM (10/29/2018 3:37 PM CDT) [facility] Sodium-POC 139 137 - 147 MMOL/L MAIN LAB Specimen Performing Organization Address [facility] Phone Number MAIN LAB [address] [place] [address] * POC POTASSIUM (10/29/2018 3:37 PM CDT) [facility] Potassium-POC 4.2 3.5 - 5.1 MMOL/L MAIN LAB Specimen Performing Organization Address [facility] Phone Number MAIN LAB [address] [place] [address] * POC HEMATOCRIT (10/29/2018 3:37 PM CDT) [facility] Hemoglobin POC 8.8 (L) 12.0 - 15.0 GM/DL MAIN LAB Hematocrit POC 26.0 (L) 36 - 45 % MAIN LAB Specimen Performing Organization Address City/[facility] Phone Number MAIN LAB [address] [place] [address] * POC BLOOD GAS EDDI (10/29/2018 3:37 PM CDT) PH-EDDI-POC 7.33 7.30 - 7.40 [facility] MAIN [facility] [id number] 48 36 - 50 MMHG [facility] MAIN [facility] PO2-EDDI-POC 51 (H) 33 - 48 MMHG [facility] MAIN LAB Base Ex-EDDI-POC 0.0 MMOL/L [facility] MAIN [facility] O2 Sat-EDDI-POC 83.0 (H) 55 - 71 % [facility] MAIN [facility] Bicarbonate-EDDI 25.5 MMOL/L [facility] MAIN [facility] -POC Specimen Performing Organization Address City/State/Zipcode Phone Number [facility] MAIN [facility] [address] [place] [address] * US ABDOMEN COMPLETE (10/29/2018 8:13 AM [...] on 10/29/2018 8:28 AM. Performing Organization Address City/State/[facility] Phone Number RAD RESULTS * BLOOD TYPE CONFIRMATION - ORDER ONLY IF REQUESTED BY LAB (10/29/2018 4:18 AM CDT) ABO/RH(D) O POS [facility] MAIN [facility] Specimen Performing Organization Address [facility] Phone Number MAIN LAB [address] [place] [address] * IONIZED CALCIUM (10/29/2018 4:18 AM CDT) Ionized Calcium 1.22 1.0 - 1.3 MMOL/L [facility]IN [facility] Specimen Blood Performing Organization Address [facility] Phone Number MAIN LAB [address] [place] [address] * PHOSPHORUS (10/29/2018 4:18 AM CDT) Phosphorus 4.8 (H)Comment: NOTE NEW 2.0 - 4.5 MG/DL [facility] MAIN [facility] REFERENCE RANGES Specimen Blood Performing Organization Address [facility] Phone Number MAIN LAB [address] [place] [address] * MAGNESIUM (10/29/2018 4:18 AM CDT) Magnesium 2.3 1.6 - 2.6 mg/dL [facility] MAIN [facility] Specimen Blood Performing Organization Address [facility] Phone Number MAIN LAB [address] [place] [address] * BASIC METABOLIC PANEL (10/29/2018 4:18 AM [...] >60 >60 mL/min [facility] MAIN [facility] Comment: Turkish The eGFR is not validated for use in drug dosing adjustments.Continue to use estimated creatinine clearance per dosing reference text.Please contact the Clinical Pharmacist for questions. eGFR >60 >60 mL/min [facility] Turkish Comment: The eGFR is not validated for use in drug dosing adjustments.Continue to use estimated creatinine clearance per dosing reference text.Please contact the Clinical Pharmacist for questions. Specimen Blood Performing Organization Address City/[facility]/Zipcode Phone Number MAIN LAB [address] [place] [address] * CBC AND DIFF (10/29/2018 4:18 AM [...] Basophil Count Specimen Blood Performing Organization Address City/[facility]/Zipcode Phone Number MAIN LAB [address] [place] [address] * TYPE & CROSSMATCH (10/28/2018 5:01 PM CDT) Units Ordered 1 [facility] MAIN [facility] Crossmatch 10/31/2018 [facility] MAIN LAB Expires Record Check 2ND TYPE REQUIRED [facility] ABO/RH(D) O POS [facility] Antibody Screen NEG [facility] Electronic YES MAIN LAB Crossmatch Unit Number [id number] MAIN LAB Blood Component RBC,ADSOL,LEUKO REDUCED [facility]IN [facility] Type Unit Division 0 MAIN LAB Status OF Unit TRANSFUSED MAIN LAB Transfusion OK TO TRANSFUSE MAIN LAB Status Crossmatch COMPATIBLE,ELECTRONIC MAIN LAB Result Specimen Blood Performing Organization Address [facility] Phone Number MAIN LAB [address] [place] [address] * POTASSIUM (10/28/2018 2:14 PM CDT) Potassium 5.1 3.5 - 5.1 MMOL/L MAIN LAB Specimen Blood Performing Organization Address [facility] Phone Number MAIN LAB [address] [place] [address] * IRON + BINDING CAPACITY + %SAT+ FERRITIN (10/28/2018 2:14 PM CDT) Iron 21 (L) 50 - 160 MCG/DL MAIN LAB Iron 344 270 - 380 MCG/DL MAIN LAB Binding-TIBC % Saturation 6 (L) 28 - 42 % MAIN LAB Ferritin 168 10 - 200 NG/ML MAIN LAB Specimen Blood Performing Organization Address [facility] Phone Number MAIN LAB [address] [place] [address] * RETICULOCYTE COUNT (10/28/2018 2:14 PM CDT) Retic, 2.1 (H) 0.5 - 2.0 % [facility] MAIN LAB Uncorrected Retic, 1.3 % MAIN LAB Corrected Retic, Absolute 59.2 30 - 94 K/UL MAIN LAB Specimen Blood Performing Organization Address [facility] Services[facility] Phone Number MAIN LAB [address] [place] [address] * IONIZED CALCIUM (10/28/2018 3:51 AM CDT) Ionized Calcium 1.32 (H) 1.0 - 1.3 MMOL/L MAIN LAB Specimen Blood Performing Organization Address [facility] Servicescode Phone Number MAIN LAB [address] [place] [address] * PHOSPHORUS (10/28/2018 3:43 AM CDT) Phosphorus 4.4Comment: NOTE NEW REFERENCE 2.0 - 4.5 MG/DL KU MAIN LAB RANGES Specimen Blood Performing Organization Address City/[facility] Servicescode Phone Number KU MAIN LAB [address] [place] [address] * MAGNESIUM (10/28/2018 3:43 AM CDT) Magnesium 2.2 1.6 - 2.6 mg/dL KU MAIN LAB Specimen Blood Performing Organization Address [facility] Servicescode Phone Number KU MAIN LAB [address] [place] [address] * BASIC METABOLIC PANEL (10/28/2018 3:43 AM [...] >60 >60 mL/min KU MAIN LAB Comment: Turkish The eGFR is not validated for use in drug dosing adjustments.Continue to use estimated creatinine clearance per dosing reference text.Please contact the Clinical Pharmacist for questions. eGFR >60 >60 mL/min KU MAIN LAB Turkish Comment: The eGFR is not validated for use in drug dosing adjustments.Continue to use estimated creatinine clearance per dosing reference text.Please contact the Clinical Pharmacist for questions. Specimen Blood Performing Organization Address [facility] Servicescode Phone Number KU MAIN LAB [address] [place] [address] * CBC AND DIFF (10/28/2018 3:43 AM [...] LAB MCH 30.6 26 - 34 PG MAIN LAB MCHC 32.7 32.0 - 36.0 G/DL MAIN LAB RDW 13.7 11 - 15 % KU MAIN LAB Platelet Count 454 (H) 150 - 400 K/UL MAIN LAB MPV 10.4 7 - 11 [...] Absolute 8.50 (H) 1.8 - 7.0 K/UL MAIN LAB Neutrophil Count Absolute Lymph 2.00 1.0 - 4.8 K/UL KU MAIN LAB Count Absolute 1.10 (H) 0 - 0.80 K/UL MAIN LAB Monocyte Count Absolute 0.20 0 - 0.45 K/UL MAIN LAB Eosinophil Count Absolute 0.10 0 - 0.20 K/UL MAIN LAB Basophil Count Specimen Blood Performing Organization Address City/[facility] Servicescomt Phone Number MAIN LAB [address] [place] [address] * IONIZED CALCIUM (10/27/2018 4:38 AM CDT) Ionized Calcium 1.26 1.0 - 1.3 MMOL/L MAIN LAB Specimen Blood Performing Organization Address City/[facility] Servicescomt Phone Number MAIN LAB [address] [place] [address] * BLOOD GASES, ARTERIAL (10/27/2018 4:38 AM CDT) pH-Arterial 7.37 7.35 - 7.45 MAIN LAB pCO2-Arterial 41 35 - 45 MMHG MAIN LAB pO2-Arterial 124 (H) 80 - 100 MMHG MAIN LAB Base 1.7 MMOL/L MAIN LAB Deficit-Arteria l O2 Sat-Arterial 98.6 95 - 99 % KU MAIN LAB Bicarbonate-ART 23.0 21 - 28 MMOL/L MAIN LAB -John Specimen Blood, arterial - Blood Performing Organization Address [facility] Servicescomt Phone Number MAIN LAB [address] [place] [address] * PHOSPHORUS (10/27/2018 4:18 AM CDT) Phosphorus 4.0Comment: NOTE NEW REFERENCE 2.0 - 4.5 MG/DL KU MAIN LAB RANGES Specimen Blood Performing Organization Address [facility] Servicescode Phone Number KU MAIN LAB [address] [place] [address] * MAGNESIUM (10/27/2018 4:18 AM CDT) Magnesium 2.2 1.6 - 2.6 mg/dL KU MAIN LAB Specimen Blood Performing Organization Address [facility] Servicescode Phone Number KU MAIN LAB [address] [place] [address] * BASIC METABOLIC PANEL (10/27/2018 4:18 AM [...] >60 >60 mL/min KU MAIN LAB Comment: Turkish The eGFR is not validated for use in drug dosing adjustments.Continue to use estimated creatinine clearance per dosing reference text.Please contact the Clinical Pharmacist for questions. eGFR >60 >60 mL/min KU MAIN LAB Turkish Comment: The eGFR is not validated for use in drug dosing adjustments.Continue to use estimated creatinine clearance per dosing reference text.Please contact the Clinical Pharmacist for questions. Specimen Blood Performing Organization Address [facility] Servicescode Phone Number K[facility] MAIN LAB [address] [place] [address] * CBC AND DIFF (10/27/2018 4:18 AM [...] Basophil Count Specimen Blood Performing Organization Address [facility] Servicescomt Phone Number MAIN LAB [address] [place] [phone] * LIVER FUNCTION PANEL (10/27/2018 4:18 AM [...] MAIN LAB Specimen Blood Performing Organization Address [facility] Servicescode Phone Number MAIN LAB [address] [place] [address] * POTASSIUM (10/26/2018 8:52 PM CDT) Potassium 4.1 3.5 - 5.1 MMOL/L KU MAIN LAB Specimen Blood Performing Organization Address [facility] Servicescode Phone Number MAIN LAB [address] [place] [address] * MRI HEAD WO/W CONTRAST (10/26/2018 5:18 AM CDT) Specimen Impressions Performed At 1. Evolution of abnormal [...] on 10/26/2018 8:01 AM. Performing Organization Address [facility] Phone Number RAD RESULTS * PHOSPHORUS (10/26/2018 3:16 AM CDT) Phosphorus 3.8Comment: NOTE NEW REFERENCE 2.0 - 4.5 MG/DL MAIN LAB RANGES Specimen Blood Performing Organization Address [facility] Servicescomt Phone Number MAIN LAB [address] [place] [address] * MAGNESIUM (10/26/2018 3:16 AM CDT) Magnesium 2.2 1.6 - 2.6 mg/dL MAIN LAB Specimen Blood Performing Organization Address [facility] Servicescomt Phone Number MAIN LAB [address] [place] [address] * BASIC METABOLIC PANEL (10/26/2018 3:16 AM CDT) Sodium 140 137 - 147 MMOL/L MAIN LAB Potassium 3.6 3.5 - 5.1 [...] >60 >60 mL/min KU MAIN LAB Comment: Turkish The eGFR is not validated for use in drug dosing adjustments.Continue to use estimated creatinine clearance per dosing reference text.Please contact the Clinical Pharmacist for questions. eGFR >60 >60 mL/min KU MAIN LAB Turkish Comment: The eGFR is not validated for use in drug dosing adjustments.Continue to use estimated creatinine clearance per dosing reference text.Please contact the Clinical Pharmacist for questions. Specimen Blood Performing Organization Address City/State/Zipcode Phone Number MAIN LAB [address] [place] [address] * CBC AND DIFF (10/26/2018 3:16 AM [...] Basophil Count Specimen Blood Performing Organization Address [facility] Servicescomt Phone Number KU MAIN LAB [address] [place] [address] * IONIZED CALCIUM (10/26/2018 3:16 AM CDT) Ionized Calcium 1.20 1.0 - 1.3 MMOL/L KU MAIN LAB Specimen Blood Performing Organization Address [facility] Servicescomt Phone Number MAIN LAB [address] [place] [phone] * PHOSPHORUS (10/25/2018 2:00 PM CDT) Phosphorus 3.2Comment: NOTE NEW REFERENCE 2.0 - 4.5 MG/DL MAIN LAB RANGES Specimen Blood Performing Organization Address [facility] Phone Number MAIN LAB [address] [place] [phone] * POTASSIUM (10/25/2018 8:15 AM CDT) Potassium 4.4 3.5 - 5.1 MMOL/L MAIN LAB Specimen Blood Performing Organization Address [facility] Phone Number MAIN LAB [address] [place] [phone] * POC GLUCOSE (10/25/2018 6:30 AM CDT) Glucose, POC 161 (H) 70 - 100 MG/DL MAIN LAB Specimen Performing Organization Address [facility] Phone Number MAIN LAB [address] [place] [phone] * CHEST SINGLE VIEW (10/25/2018 4:08 AM CDT) Specimen Impressions Performed At Mild cardiomegaly and pulmonary [...] below the diaphragm and out of the [id number]. There is mild cardiomegaly with mild pulmonary [...] below the diaphragm and out of the [id number]. There is mild cardiomegaly with mild pulmonary [...] on 10/25/2018 10:20 AM. Performing Organization Address City/State/[facility]code Phone Number KU RAD RESULTS * PHOSPHORUS (10/25/2018 3:19 AM CDT) Phosphorus 1.6 (L)Comment: NOTE NEW 2.0 - 4.5 MG/DL KU MAIN LAB REFERENCE RANGES Specimen Blood Performing Organization Address City/State/[facility] Phone Number MAIN LAB [address] [place] [address] * MAGNESIUM (10/25/2018 3:19 AM CDT) Magnesium 2.2 1.6 - 2.6 mg/dL KU MAIN LAB Specimen Blood Performing Organization Address [facility]/Zipcode Phone Number MAIN LAB [address] [place] [address] * BASIC METABOLIC PANEL (10/25/2018 3:19 AM [...] >60 >60 mL/min KU MAIN LAB Comment: Turkish The eGFR is not validated for use in drug dosing adjustments.Continue to use estimated creatinine clearance per dosing reference text.Please contact the Clinical Pharmacist for questions. eGFR >60 >60 mL/min KU MAIN LAB Turkish Comment: The eGFR is not validated for use in drug dosing adjustments.Continue to use estimated creatinine clearance per dosing reference text.Please contact the Clinical Pharmacist for questions. Specimen Blood Performing Organization Address City/[facility]/Zipcode Phone Number MAIN LAB [address] [place] [address] * CBC AND DIFF (10/25/2018 3:19 AM [...] - 2 % KU MAIN LAB Absolute 11.30 (H) 1.8 - 7.0 K/UL KU MAIN LAB Neutrophil Count Absolute Lymph 1.60 1.0 - 4.8 K/UL KU MAIN LAB Count Absolute 0.80 0 - 0.80 K/UL MAIN LAB Monocyte Count Absolute 0.20 0 - 0.45 K/UL MAIN LAB Eosinophil Count Absolute 0.00 0 - 0.20 K/UL MAIN LAB Basophil Count Specimen Blood Performing Organization Address City/[facility] Servicescode Phone Number MAIN LAB [address] [place] [address] * AMMONIA (10/25/2018 3:19 AM CDT) Ammonia 50 (H) 9 - 35 MCMOL/L MAIN LAB Specimen Blood Performing Organization Address City/[facility] Phone Number MAIN LAB [address] [place] [address] * IONIZED CALCIUM (10/25/2018 3:19 AM CDT) Ionized Calcium 1.15 1.0 - 1.3 MMOL/L MAIN LAB Specimen Blood Performing Organization Address [facility] Servicescode Phone Number MAIN LAB [address] [place] [address] * POC GLUCOSE (10/24/2018 10:00 PM CDT) Glucose, POC 147 (H) 70 - 100 MG/DL MAIN LAB Specimen Performing Organization Address [facility] Servicescode Phone Number MAIN LAB [address] [place] [address] * C DIFFICILE BY PCR (10/24/2018 6:30 PM CDT) Battery Name C DIFFICILE PCR KU MAIN LAB Specimen FECES MAIN LAB Description Special NONE KU MAIN LAB Requests C. difficile NEGATIVE-wait 7 days to repeat MAIN LAB Toxin B PCR test Report Status FINAL KU MAIN LAB 10/25/2018 Specimen Feces Performing Organization Address City/[facility]/Zipcode Phone Number MAIN LAB [address] [place] [address] * POTASSIUM (10/24/2018 9:56 AM CDT) Potassium 3.5 3.5 - 5.1 MMOL/L KU MAIN LAB Specimen Blood Performing Organization Address City/[facility]/Zipcode Phone Number MAIN LAB [address] [place] [address] * MAGNESIUM (10/24/2018 9:56 AM CDT) Magnesium 2.5 1.6 - 2.6 mg/dL MAIN LAB Specimen Blood Performing Organization Address City/[facility] Phone Number MAIN LAB [address] [place] [address] * VANCOMYCIN TROUGH (10/24/2018 9:56 AM CDT) Vancomycin 11.8 10.0 - 20.0 MCG/ML MAIN LAB Trough Specimen Blood, venous - Blood Performing Organization Address [facility] Servicescomt Phone Number MAIN LAB [address] [place] [address] * IONIZED CALCIUM (10/24/2018 2:00 AM CDT) Ionized Calcium 1.17 1.0 - 1.3 MMOL/L MAIN LAB Specimen Blood Performing Organization Address [facility]code Phone Number MAIN LAB [address] [place] [address] * PHOSPHORUS (10/24/2018 2:00 AM CDT) Phosphorus 2.5Comment: NOTE NEW REFERENCE 2.0 - 4.5 MG/DL MAIN LAB RANGES Specimen Blood Performing Organization Address City/[facility]/Zipcode Phone Number MAIN LAB [address] [place] [address] * MAGNESIUM (10/24/2018 2:00 AM CDT) Magnesium 1.9 1.6 - 2.6 mg/dL MAIN LAB Specimen Blood Performing Organization Address [facility]/Zipcode Phone Number MAIN LAB [address] [place] [address] * CBC AND DIFF (10/24/2018 2:00 AM CDT) Pathologist [facility] White Blood 16.3 (H) 4.5 - 11.0 [...] City/State/Zipcode Phone Number KU MAIN LAB [address] [place] [address] * BASIC METABOLIC PANEL (10/24/2018 2:00 AM CDT) Pathologist [facility] Sodium 140 137 - 147 MMOL/L KU [...] >60 >60 mL/min KU MAIN LAB Comment: Turkish The eGFR is not validated for use in drug dosing adjustments.Continue to use estimated creatinine clearance per dosing reference text.Please contact the Clinical Pharmacist for questions. eGFR >60 >60 mL/min KU MAIN LAB Turkish Comment: The eGFR is not validated for use in drug dosing adjustments.Continue to use estimated creatinine clearance per dosing reference text.Please contact the Clinical Pharmacist for questions. Specimen Blood Performing Organization Address City/State/Zipcode Phone Number KU MAIN LAB [address] [place] [address] * ABDOMEN AP ONLY (10/23/2018 9:27 PM CDT) Specimen Impressions Performed At Pyloric or duodenal bulb [...] and upper abdomen are included in the [id number]-[id number]-icyl. There is generalized cardiomegaly. There are zones [...] and upper abdomen are included in the vuzbf-im-loof. There is generalized cardiomegaly. There are zones [...] on 10/24/2018 6:35 AM. Performing Organization Address City/[facility] Phone Number RAD RESULTS * GRAM STAIN (10/23/2018 4:15 PM CDT) Battery Name GRAM STAIN MAIN LAB Specimen CSF MAIN LAB Description Special NONE MAIN LAB Requests Gram Stain RARE [facility] NEUTROPHILS NO ORGANISMS SEEN Report Status FINAL [facility] 10/23/2018 Specimen Cerebrospinal Fluid Performing Organization Address [facility] Phone Number [facility] [address] [place] [address] * HERPES SIMPLEX PCR - NON-BLOOD (10/23/2018 4:15 PM CDT) Specimen, CSF [facility] Herpes Herpes Simplex HSV 1 and 2 NOT DETECTED HSVND-HSV 1 and 2 [facility] PCR Comment: NOT DETECTED [employer] HSV 1&2 Assay is a qualitative real-time PCR test for the direct detection and differentiation of HSV 1 and 2 DNA. This assay is FDA approved for testing cutaneous or mucocutaneous lesions from symptomatic patients. Performance on modifications of this test as well as other specimen types has been validated by the Department of Pathology and Laboratory Medicine at the [facility]. Specimen Cerebrospinal Fluid Performing Organization Address City/[facility] Phone Number [facility] [address] [place] [address] * CULTURE-CSF W/SENSITIVITY (10/23/2018 4:15 PM CDT) Battery Name CSF CULTURE MAIN LAB Specimen CSF MAIN LAB Description Special NONE MAIN LAB Requests Direct Gram RARE [facility] Stain NEUTROPHILS NO ORGANISMS SEEN Culture NO GROWTH 3 DAYS MAIN LAB Report Status FINAL [facility] 10/26/2018 Specimen Cerebrospinal fluid - Cerebrospinal Fluid Performing Organization Address [facility] Phone Number [facility] MAIN LAB [address] [place] [address] * GLUCOSE-CSF (10/23/2018 4:15 PM CDT) Pathologist [facility] Glucose,CSF 70 40 - 75 MG/DL KU MAIN LAB Xanthrochromia, NONE [facility] MAIN LAB CSF BLOOD PRESENT Specimen Cerebrospinal fluid - Cerebrospinal Fluid Performing Organization Address [facility] Phone Number [facility] MAIN LAB [address] [place] [address] * TOTAL PROTEIN-CSF (10/23/2018 4:15 PM CDT) Pathologist [facility] Total 70 (H) 15 - 45 MG/DL KU MAIN LAB Protein,CSF Specimen Cerebrospinal fluid - Cerebrospinal Fluid Performing Organization Address [facility]t Phone Number [facility] MAIN LAB [address] [place] [address] * CELL COUNT W/DIFF-CSF (10/23/2018 4:15 PM CDT) Pathologist [facility] Cell Count TUBE 4 KU MAIN LAB Tube,CSF White Blood 23 (H) <5 /UL KU MAIN LAB Cells,CSF Red Blood 1 /UL KU MAIN LAB Cells,CSF Neutrophils, 3 % KU MAIN LAB CSF Lymphocytes, 86 % KU MAIN LAB CSF Monocyte/Hisoto 9 % KU MAIN LAB cyte, CSF Other, CSF 2 % KU MAIN LAB Clarity,CSF CLEAR KU MAIN LAB Path CHRONIC INFLAMMATION K[facility] MAIN LAB Interpretation, CSF Pathologist INTERPRETED BY JOVITA ARAUJO M.D. [facility] MAIN LAB Signature By the PATH SIGNATURE ABOVE, I attest that I have personally formulated the final interpretation expressed in this report and that the above diagnosis is based upon my examination of the slides and/or other material indicated in this report. Specimen Cerebrospinal fluid - Cerebrospinal Fluid Performing Organization Address [facility] Phone Number MAIN LAB [address] [place] [address] * TRANSESOPHAGEAL ECHOCARDIOGRAM (10/23/2018 3:51 PM CDT) Mr max bozena 6.5 m/s OTHER OUTSIDE LAB BSA 1.57 m2 OTHER OUTSIDE LAB CV ECHO PV MARI Doan; Floor RN OTHER OUTSIDE SCENIC ARTIST LAB Cardiology Siemens [id number] OTHER OUTSIDE Ultrasound LAB Machine ECHO EF 45 % OTHER OUTSIDE LAB Radius 0.5 cm OTHER OUTSIDE LAB AV peak 1.6 m/s OTHER OUTSIDE velocity LAB Vn Nyquist 0.31 m/s OTHER OUTSIDE LAB MR ELVIA TORRES 0.07 cm2 OTHER OUTSIDE LAB Specimen Narrative Performed At OTHER OUTSIDE LAB JYOTSNA: [...] This study was read in conjunction with bilingual social worker, Dr. Don Dominguez.I have personally reviewed the study and co-formulated the interpretation expressed in this report. Performing Organization Address City/[facility]/Zipcode Phone Number OTHER OUTSIDE LAB * POTASSIUM (10/23/2018 1:17 PM CDT) Potassium 4.0 3.5 - 5.1 MMOL/L [facility] Specimen Blood Performing Organization Address City/[facility]/Zipcode Phone Number [facility] [address] [place] [address] * BLOOD GASES, ARTERIAL (10/23/2018 3:25 AM [...] 21 - 28 MMOL/L KU MAIN LAB -John Specimen Blood, arterial - Blood Performing Organization Address [facility]/Zipcode Phone Number KU MAIN LAB [address] [place] [address] * IONIZED CALCIUM (10/23/2018 3:25 AM CDT) Ionized Calcium 1.18 1.0 - 1.3 MMOL/L KU MAIN LAB Specimen Blood Performing Organization Address [facility] Phone Number [facility] MAIN LAB [address] [place] [address] * PHOSPHORUS (10/23/2018 3:25 AM CDT) Phosphorus 1.6 (L)Comment: NOTE NEW 2.0 - 4.5 MG/DL KU MAIN LAB REFERENCE RANGES Specimen Blood Performing Organization Address [facility]t Phone Number [facility] MAIN LAB [address] [place] [address] * MAGNESIUM (10/23/2018 3:25 AM CDT) Magnesium 2.0 1.6 - 2.6 mg/dL K[facility] MAIN LAB Specimen Blood Performing Organization Address [facility]t Phone Number [facility] MAIN LAB [address] [place] [address] * CBC AND DIFF (10/23/2018 3:25 AM [...] LAB MCHC 32.4 32.0 - 36.0 G/DL MAIN LAB RDW 14.8 11 - 15 [...] Basophil Count Specimen Blood Performing Organization Address City/[facility]/Zipcode Phone Number MAIN LAB [address] [place] [address] * BASIC METABOLIC PANEL (10/23/2018 3:25 AM CDT) Sodium 145 137 - 147 MMOL/L KU MAIN LAB Potassium 3.4 (L) 3.5 - 5.1 MMOL/L K[facility] MAIN LAB Chloride 106 98 - 110 MMOL/L MAIN LAB CO2 36 (H) 21 - 30 MMOL/L KU MAIN LAB Anion Gap 3 3 - 12 MAIN LAB Glucose 121 (H) 70 - 100 MG/DL KU MAIN LAB Blood Urea 10 7 - 25 MG/DL KU MAIN LAB Nitrogen Creatinine 0.33 (L) 0.4 - 1.00 MG/DL KU MAIN LAB Calcium 8.1 (L) 8.5 - 10.6 MG/DL MAIN LAB eGFR Non >60 >60 mL/min MAIN LAB Comment: Turkish The eGFR is not validated for use in drug dosing adjustments.Continue to use estimated creatinine clearance per dosing reference text.Please contact the Clinical Pharmacist for questions. eGFR >60 >60 mL/min MAIN LAB Turkish Comment: The eGFR is not validated for use in drug dosing adjustments.Continue to use estimated creatinine clearance per dosing reference text.Please contact the Clinical Pharmacist for questions. Specimen Blood Performing Organization Address City/[facility]/Zipcode Phone Number MAIN LAB [address] [place] [address] * CULTURE-BLOOD W/SENSITIVITY (10/22/2018 12:36 PM CDT) Battery Name BLOOD CULTURE MAIN LAB Specimen BLOOD MAIN LAB Description RIGHT ANTECUBITAL Special aerobic bottle only MAIN LAB Requests Culture performed on specimen with less than the recommended volume of 10 ml/bottle. Decreased volume will affect sensitivity of culture. Culture NO GROWTH 5 DAYS MAIN LAB Report Status FINAL [facility] MAIN LAB 10/28/2018 Specimen Blood Performing Organization Address City/[facility] Phone Number MAIN LAB [address] [place] [address] * CULTURE-BLOOD W/SENSITIVITY (10/22/2018 11:43 AM CDT) Battery Name BLOOD CULTURE MAIN LAB Specimen BLOOD KU MAIN LAB Description RIGHT ANTECUBITAL Special NONE KU MAIN LAB Requests Culture NO GROWTH 5 DAYS KU MAIN LAB Report Status FINAL MAIN LAB 10/28/2018 Specimen Blood Performing Organization Address City/[facility] Services[facility] Phone Number MAIN LAB [address] [place] [address] * BLOOD GASES, ARTERIAL (10/22/2018 3:15 AM CDT) pH-Arterial 7.45 7.35 - 7.45 MAIN LAB pCO2-Arterial 50 (H) 35 - 45 MMHG MAIN LAB pO2-Arterial 88 80 - 100 MMHG MAIN LAB Base 9.0 MMOL/L MAIN LAB Excess-Arterial O2 Sat-Arterial 96.7 95 - 99 % MAIN LAB Bicarbonate-ART 32.8 (H) 21 - 28 MMOL/L MAIN LAB -John Specimen Blood, arterial - Blood Performing Organization Address [facility] Phone Number MAIN LAB [address] [place] [address] * IONIZED CALCIUM (10/22/2018 3:15 AM CDT) Ionized Calcium 1.23 1.0 - 1.3 MMOL/L MAIN LAB Specimen Blood Performing Organization Address [facility] Phone Number MAIN LAB [address] [place] [address] * PHOSPHORUS (10/22/2018 3:15 AM CDT) Phosphorus 1.9 (L)Comment: NOTE NEW 2.0 - 4.5 MG/DL MAIN LAB REFERENCE RANGES Specimen Blood Performing Organization Address City/[facility]/Zipcode Phone Number MAIN LAB [address] [place] [address] * MAGNESIUM (10/22/2018 3:15 AM CDT) Magnesium 2.1 1.6 - 2.6 mg/dL MAIN LAB Specimen Blood Performing Organization Address City/[facility]/Zipcode Phone Number MAIN LAB [address] [place] [address] * CBC AND DIFF (10/22/2018 3:15 AM [...] Organization Address City/State/Zipcode Phone Number MAIN LAB [address] [place] [id number] * BASIC METABOLIC PANEL (10/22/2018 3:15 AM [...] >60 >60 mL/min [facility]IN [facility] Comment: Turkish The eGFR is not validated for use in drug dosing adjustments.Continue to use estimated creatinine clearance per dosing reference text.Please contact the Clinical Pharmacist for questions. eGFR >60 >60 mL/min [facility] Turkish Comment: The eGFR is not validated for use in drug dosing adjustments.Continue to use estimated creatinine clearance per dosing reference text.Please contact the Clinical Pharmacist for questions. Specimen Blood Performing Organization Address City/State/Zipcode Phone Number MAIN LAB [address] [place] [address] * VANCOMYCIN TROUGH (10/21/2018 9:41 PM CDT) Vancomycin 9.8 (L) 10.0 - 20.0 MCG/ML [facility]IN [facility] Trough Specimen Blood, venous - Blood Performing Organization Address [facility]/Zipcode Phone Number MAIN LAB [address] [place] [address] * SODIUM (10/21/2018 1:35 PM CDT) Sodium 149 (H) 137 - 147 MMOL/L [facility]IN [facility] Specimen Blood Performing Organization Address [facility]/Zipcode Phone Number MAIN LAB [address] [place] [address] * ABDOMEN AP ONLY (10/21/2018 10:38 AM CDT) Specimen Impressions Performed At [facility] [employer] [...] on 10/21/2018 11:19 AM. Performing Organization Address City/[facility] Phone Number RAD RESULTS * IONIZED CALCIUM (10/21/2018 3:10 AM CDT) Ionized Calcium 1.20 1.0 - 1.3 MMOL/L [facility]IN [facility] Specimen Blood Performing Organization Address [facility] Phone Number MAIN LAB [address] [place] [address] * PHOSPHORUS (10/21/2018 3:10 AM CDT) Phosphorus 2.5Comment: NOTE NEW REFERENCE 2.0 - 4.5 MG/DL [facility] MAIN [facility] RANGES Specimen Blood Performing Organization Address [facility] Phone Number MAIN LAB [address] [place] [address] * MAGNESIUM (10/21/2018 3:10 AM CDT) Magnesium 2.1 1.6 - 2.6 mg/dL [facility] MAIN [facility] Specimen Blood Performing Organization Address [facility] Phone Number MAIN LAB [address] [place] [address] * CBC AND DIFF (10/21/2018 3:10 AM [...] Platelet Count 331 150 - 400 K/UL MAIN LAB MPV 9.0 7 - 11 [...] Absolute Lymph 1.90 1.0 - 4.8 K/UL MAIN LAB Count Absolute 0.60 0 - 0.80 K/UL [facility]IN [facility] Monocyte Count Absolute 0.00 0 - 0.45 K/UL MAIN LAB Eosinophil Count Absolute 0.10 0 - 0.20 K/UL MAIN LAB Basophil Count Specimen Blood Performing Organization Address City/[facility] Phone Number [facility] [address] [place] [address] * BASIC METABOLIC PANEL (10/21/2018 3:10 AM CDT) Sodium 150 (H) 137 - 147 MMOL/L MAIN LAB Potassium 3.4 (L) 3.5 - 5.1 MMOL/L [facility] Chloride 113 (H) 98 - 110 MMOL/L [facility] MAIN [facility] CO2 30 21 - 30 MMOL/L MAIN LAB Anion Gap 7 3 - 12 [facility]IN [facility] Glucose 118 (H) 70 - 100 MG/DL MAIN LAB Blood Urea 9 7 - 25 MG/DL MAIN LAB Nitrogen Creatinine 0.48 0.4 - 1.00 MG/DL MAIN LAB Calcium 8.8 8.5 - 10.6 MG/DL MAIN LAB eGFR Non >60 >60 mL/min MAIN LAB Comment: Turkish The eGFR is not validated for use in drug dosing adjustments.Continue to use estimated creatinine clearance per dosing reference text.Please contact the Clinical Pharmacist for questions. eGFR >60 >60 mL/min MAIN LAB Turkish Comment: The eGFR is not validated for use in drug dosing adjustments.Continue to use estimated creatinine clearance per dosing reference text.Please contact the Clinical Pharmacist for questions. Specimen Blood Performing Organization Address City/[facility] Phone Number [facility] [address] [place] [address] * RVP VIRAL PANEL PCR (10/20/2018 11:05 PM COMMUNITY ASSOCIATION MANAGER) Specimen Source NASOPHARYNGEAL SWAB [facility] MAIN [facility] This assay uses analyte specific reagents and has not been cleared by the [place] Food and Drug Administration.The performance characteristics were determined by the [facility]. Adenovirus NOT DETECTED [facility] MAIN [...] Pneumoniae Specimen Nasopharyngeal Swab Performing Organization Address [facility] Phone Number [facility] MAIN [facility] [address] [place] [address] * ABDOMEN AP ONLY (10/20/2018 8:25 PM COMMUNITY ASSOCIATION MANAGER) Specimen Impressions Performed At Impression: [facility] [...] on 10/21/2018 10:08 AM. Performing Organization Address [facility] Phone Number [facility] RAD RESULTS * ABDOMEN AP ONLY (10/20/2018 8:18 PM COMMUNITY ASSOCIATION MANAGER) Specimen Impressions Performed At [facility] [employer] [...] on 10/21/2018 11:52 AM. Performing Organization Address [facility] Phone Number [facility] RAD RESULTS * LIVER FUNCTION PANEL (10/20/2018 3:57 PM COMMUNITY ASSOCIATION MANAGER) Total Bilirubin 0.3 0.3 - 1.2 MG/DL [...] MAIN LAB Specimen Blood Performing Organization Address City/[facility] Phone Number [facility] MA[facility] [address] [place] [address] * AMMONIA (10/20/2018 3:57 PM COMMUNITY ASSOCIATION MANAGER) Ammonia 76 (H) 9 - 35 MCMOL/L [facility] MAIN [facility] Specimen Blood Performing Organization Address [facility] Phone Number [facility] MAIN [facility] [address] [place] [address] * MRI HEAD WO/W CONTRAST (10/20/2018 3:41 PM COMMUNITY ASSOCIATION MANAGER) Specimen Addenda Addendum by Mayank Price MD on [...] Interface, Radiant Results - 10/20/2018 4:46 PM COMMUNITY ASSOCIATION MANAGER EXAM: MRI BRAIN (SKULL BASE PROTOCOL) HISTORY: [...] EXTREM W CONT BILAT (10/20/2018 1:56 PM COMMUNITY ASSOCIATION MANAGER) Specimen Bilateral Impressions Performed At 1. Mild soft tissue [...] AUD CANAL WO CONTRAST (10/20/2018 1:50 PM COMMUNITY ASSOCIATION MANAGER) Specimen Impressions Performed At 1.Extensive thinning and numerous [...] Address City/State/Zipcode Phone Number RAD RESULTS * POTASSIUM (10/20/2018 11:17 AM COMMUNITY ASSOCIATION MANAGER) Potassium 4.0 3.5 - 5.1 MMOL/L MAIN LAB Specimen Blood Performing Organization Address [facility] Phone Number MAIN LAB [address] [place] [address] * ACETAMINOPHEN LEVEL (10/20/2018 11:17 AM COMMUNITY ASSOCIATION MANAGER) Acetaminophen <10.0 <20.1 MCG/ML MAIN LAB Specimen Blood Performing Organization Address [facility] Phone Number MAIN LAB [address] [place] [address] * 2-D + DOPPLER ECHOCARDIOGRAM (10/20/2018 10:08 AM COMMUNITY ASSOCIATION MANAGER) IVS 0.76 0.6 - 0.9 cm OTHER [...] 34 OTHER OUTSIDE Index LAB Cardiology Siemens [id number] OTHER OUTSIDE Ultrasound LAB Machine Left Ventricle 62.44 44 - 88 g/m2 OTHER OUTSIDE Mass Index LAB ECHO EF 40 % OTHER OUTSIDE LAB Specimen Narrative Performed At OTHER OUTSIDE LAB LVEF=35-40% With Mid To Distal Anteroapical Severe Hypokinesis To Akinesis. Phzizcabusg=835-859 bpm Normal LV Wall Thickness Normal Chamber Dimensions Anterior Mitral Valve Borderline Prolapse No Vegetations Moderate Eccentric Posterior Lateral Jet Mitral Valve Regurgitation No Pericardial Effusion PASP=33mmHg Performing Organization Address City/[facility] Phone Number OTHER OUTSIDE LAB * BLOOD GASES, ARTERIAL (10/20/2018 3:49 AM COMMUNITY ASSOCIATION MANAGER) pH-Arterial 7.41 7.35 - 7.45 MAIN LAB pCO2-Arterial 47 (H) 35 - 45 MMHG [facility] MAIN LAB pO2-Arterial 99 80 - 100 MMHG [facility] MAIN [facility] Base 3.9 MMOL/L [facility] MAIN [facility] Excess-Arterial O2 Sat-Arterial 97.7 95 - 99 % MAIN LAB Bicarbonate-ART 27.9 21 - 28 MMOL/L MAIN LAB -John Specimen Blood, arterial - Blood Performing Organization Address City/[facility]/Zipcode Phone Number MAIN LAB [address] [place] [address] * IONIZED CALCIUM (10/20/2018 3:38 AM COMMUNITY ASSOCIATION MANAGER) Pathologist [facility] Ionized Calcium 1.22 1.0 - 1.3 MMOL/L MAIN LAB Specimen Blood Performing Organization Address City/[facility] Phone Number MAIN LAB [address] [place] [address] * PHOSPHORUS (10/20/2018 3:38 AM COMMUNITY ASSOCIATION MANAGER) Phosphorus 3.0Comment: NOTE NEW REFERENCE 2.0 - 4.5 MG/DL [facility] MAIN [facility] RANGES Specimen Blood Performing Organization Address City/[facility] Phone Number [facility] [address] [place] [address] * MAGNESIUM (10/20/2018 3:38 AM COMMUNITY ASSOCIATION MANAGER) Magnesium 2.6 1.6 - 2.6 mg/dL [facility] MAIN [facility] Specimen Blood Performing Organization Address City/[facility] Phone Number [facility] [address] [place] [address] * CBC AND DIFF (10/20/2018 3:38 AM COMMUNITY ASSOCIATION MANAGER) White Blood 14.2 (H) 4.5 - 11.0 [...] Basophil Count Specimen Blood Performing Organization Address [facility] Phone Number [facility] [address] [place] [address] * BASIC METABOLIC PANEL (10/20/2018 3:38 AM COMMUNITY ASSOCIATION MANAGER) Sodium 146 137 - 147 MMOL/L MAIN LAB Potassium 3.9 3.5 - 5.1 MMOL/L [facility]IN [facility] Chloride 112 (H) 98 - 110 MMOL/L [facility] MAIN [facility] CO2 28 21 - 30 MMOL/L MAIN LAB Anion Gap 6 3 - 12 MAIN LAB Glucose 142 (H) 70 - 100 MG/DL MAIN LAB Blood Urea 13 7 - 25 MG/DL [facility] MAIN [facility] Nitrogen Creatinine 0.50 0.4 - 1.00 MG/DL MAIN LAB Calcium 8.7 8.5 - 10.6 MG/DL MAIN LAB eGFR Non >60 >60 mL/min MAIN LAB Comment: Turkish The eGFR is not validated for use in drug dosing adjustments.Continue to use estimated creatinine clearance per dosing reference text.Please contact the Clinical Pharmacist for questions. eGFR >60 >60 mL/min MAIN LAB Turkish Comment: The eGFR is not validated for use in drug dosing adjustments.Continue to use estimated creatinine clearance per dosing reference text.Please contact the Clinical Pharmacist for questions. Specimen Blood Performing Organization Address City/[facility]/Zipcode Phone Number [facility] [address] [place] [id number] * GRAM STAIN (10/20/2018 1:28 AM COMMUNITY ASSOCIATION MANAGER) Battery Name GRAM STAIN MAIN LAB Specimen SWAB [facility] Description WOUND LEFT LEG Special NONE MAIN LAB Requests Gram Stain NO NEUTROPHILS SEEN [facility] NO ORGANISMS SEEN Report Status FINAL [facility] 10/20/2018 Specimen Swab Performing Organization Address City/[facility]/Zipcode Phone Number [facility] [address] [place] [address] * CULTURE-WOUND/TISSUE/FLUID(AEROBIC ONLY)W/SENSITIVITY (10/20/2018 1:28 AM COMMUNITY ASSOCIATION MANAGER) Battery Name ROUTINE CULTURE MAIN LAB Specimen SWAB MAIN LAB Description WOUND LEFT LEG Special NONE MAIN LAB Requests Direct Gram NO NEUTROPHILS SEEN MAIN LAB Stain NO ORGANISMS SEEN Culture Four Colonies MAIN LAB PSEUDOMONAS AERUGINOSA (A) Report Status FINAL [facility] 10/25/2018 Organism ID Four Colonies MAIN [...] Four colonies pseudomonas aeruginosa Performing Organization Address [facility] Phone Number MAIN LAB [address] [place] [address] * GRAM STAIN (10/20/2018 1:07 AM COMMUNITY ASSOCIATION MANAGER) Battery Name GRAM STAIN MAIN LAB Specimen TRACHEAL ASPIRATE MAIN LAB Description Special NONE MAIN LAB Requests Gram Stain LESS THAN 10/LPF MAIN LAB NEUTROPHILS LESS THAN 10/LPF SQUAMOUS EPITHELIAL CELLS NO ORGANISMS SEEN Report Status FINAL MAIN LAB 10/20/2018 Specimen Tracheal Aspirate Performing Organization Address [facility] Phone Number MAIN LAB [address] [place] [address] * CULTURE-RESP,LOWER W/SENSITIVITY (10/20/2018 1:07 AM COMMUNITY ASSOCIATION MANAGER) Battery Name LOWER RESP CULTURE MAIN LAB Specimen TRACHEAL ASPIRATE MAIN LAB Description Special NONE MAIN LAB Requests Direct Gram LESS THAN 10/LPF MAIN LAB Stain NEUTROPHILS LESS THAN 10/LPF SQUAMOUS EPITHELIAL CELLS NO ORGANISMS SEEN Culture Moderate growth MAIN LAB NO SIGNIFICANT CHELSEY Report Status FINAL MAIN LAB 10/22/2018 Specimen Tracheal Aspirate Performing Organization Address [facility] Phone Number MAIN LAB [address] [place] [address] * BLOOD GASES, ARTERIAL (10/20/2018 1:01 AM COMMUNITY ASSOCIATION MANAGER) pH-Arterial 7.32 (L) 7.35 - 7.45 [facility] MAIN [facility] pCO2-Arterial 58 (H) 35 - 45 MMHG [facility] MAIN [facility] pO2-Arterial 74 (L) 80 - 100 MMHG [facility] MAIN [facility] Base 2.6 MMOL/L [facility] MAIN [facility] Excess-Arterial O2 Sat-Arterial 92.5 (L) 95 - 99 % [facility] MAIN [facility] Bicarbonate-ART 26.7 21 - 28 MMOL/L [facility] MAIN [facility] -John Specimen Blood, arterial - Blood Performing Organization Address City/State/Zipcode Phone Number [facility] [address] [place] [address] * CT HEAD WO CONTRAST (10/20/2018 12:45 AM COMMUNITY ASSOCIATION MANAGER) Specimen Impressions Performed At 1.Right inferior temporal lobe [...] Interface, Radiant Results - 10/20/2018 8:00 [address] COMMUNITY ASSOCIATION MANAGER CT HEAD WITHOUT CONTRAST HISTORY: 58 [...] on 10/20/2018 7:49 AM. Performing Organization Address City/[facility] Phone Number [facility] RAD RESULTS * CULTURE-BLOOD W/SENSITIVITY (10/20/2018 12:12 AM COMMUNITY ASSOCIATION MANAGER) Battery Name BLOOD CULTURE [facility] MAIN LAB Specimen BLOOD [facility] MAIN LAB Description RIGHT RADIAL Special NONE [facility] MAIN LAB Requests Culture NO GROWTH 5 DAYS [facility] MAIN LAB Report Status FINAL [facility]IN [facility] 10/26/2018 Specimen Blood Performing Organization Address City/[facility] Phone Number [facility] [address] [place] [address] * CULTURE-BLOOD W/SENSITIVITY (10/20/2018 12:11 AM COMMUNITY ASSOCIATION MANAGER) Battery Name BLOOD CULTURE [facility]IN [facility] Specimen BLOOD [facility] MAIN [facility] Description LEFT RADIAL Special NONE [facility] MAIN LAB Requests Culture NO GROWTH 5 DAYS [facility] MAIN LAB Report Status FINAL [facility]IN [facility] 10/26/2018 Specimen Blood Performing Organization Address [facility] Phone Number [facility]IN [facility] [address] [place] [address] * CHEST SINGLE VIEW (10/19/2018 11:45 PM COMMUNITY ASSOCIATION MANAGER) Specimen Impressions Performed At 1. Tubes and lines [...] Interface, Radiant Results - 10/20/2018 10:12 AM COMMUNITY ASSOCIATION MANAGER CHEST SINGLE VIEW Clinical Indication: Female, 58 [...] on 10/20/2018 8:40 AM. Performing Organization Address [facility] Phone Number [facility] RESULTS * PHENCYCLIDINES-URINE RANDOM (10/19/2018 11:36 PM COMMUNITY ASSOCIATION MANAGER) Phencyclidine NEG NEG-NEG [facility] (PCP) Comment: RESULTS WERE OBTAINED BY IMMUNOASSAY AND ARE PRESUMPTIVE ONLY. POSITIVE INDICATES THE PRESENCE OF SUBSTANCE WITH CHARACTERISTICS SIMILAR TO DRUG-DRUG CLASS OR METABOLITE IN CONC. EQUAL TO OR EXCEEDING VALUES LISTED. PHENCYCLIDINE (PCP)25 NG/ML Specimen Urine - Urine Performing Organization Address [facility] Phone Number [facility] MAIN LAB [address] [place] [address] * OPIATES-URINE RANDOM (10/19/2018 11:36 PM COMMUNITY ASSOCIATION MANAGER) Opiates-Urine NEG NEG-NEG [facility] Comment: RESULTS WERE OBTAINED BY IMMUNOASSAY AND ARE PRESUMPTIVE ONLY. POSITIVE INDICATES THE PRESENCE OF SUBSTANCE WITH CHARACTERISTICS SIMILAR TO DRUG-DRUG CLASS OR METABOLITE IN CONC. EQUAL TO OR EXCEEDING VALUES LISTED. OPIATES 2000 NG/ML Specimen Urine - Urine Performing Organization Address [facility] Phone Number [facility]IN [facility] [address] [place] [address] * COCAINE-URINE RANDOM (10/19/2018 11:36 PM COMMUNITY ASSOCIATION MANAGER) Cocaine-Urine NEG NEG-NEG MAIN LAB Comment: RESULTS WERE OBTAINED BY IMMUNOASSAY AND ARE PRESUMPTIVE ONLY. POSITIVE INDICATES THE PRESENCE OF SUBSTANCE WITH CHARACTERISTICS SIMILAR TO DRUG-DRUG CLASS OR METABOLITE IN CONC. EQUAL TO OR EXCEEDING VALUES LISTED. COCAINE 300 NG/ML Specimen Urine - Urine Performing Organization Address [facility] Phone Number [facility] [address] [place] [address] * CANNABINOIDS-URINE RANDOM (10/19/2018 11:36 PM COMMUNITY ASSOCIATION MANAGER) THC NEG NEG-NEG MAIN LAB Comment: RESULTS WERE OBTAINED BY IMMUNOASSAY AND ARE PRESUMPTIVE ONLY. POSITIVE INDICATES THE PRESENCE OF SUBSTANCE WITH CHARACTERISTICS SIMILAR TO DRUG-DRUG CLASS OR METABOLITE IN CONC. EQUAL TO OR EXCEEDING VALUES LISTED. CANNABINOIDS 50 NG/ML Specimen Urine - Urine Performing Organization Address [facility] Phone Number [facility] [address] [place] [address] * BENZODIAZEPINES-URINE RANDOM (10/19/2018 11:36 PM COMMUNITY ASSOCIATION MANAGER) Benzodiazepines POS (A) NEG-NEG [facility] Comment: RESULTS WERE OBTAINED BY IMMUNOASSAY AND ARE PRESUMPTIVE ONLY. POSITIVE INDICATES THE PRESENCE OF SUBSTANCE WITH CHARACTERISTICS SIMILAR TO DRUG-DRUG CLASS OR METABOLITE IN CONC. EQUAL TO OR EXCEEDING VALUES LISTED. BENZODIAZEPINES 200 NG/ML Specimen Urine - Urine Performing Organization Address [facility] Phone Number [facility] [address] [place] [address] * BARBITURATES-URINE RANDOM (10/19/2018 11:36 PM COMMUNITY ASSOCIATION MANAGER) Barbiturates,Ur POS (A) NEG-NEG [facility] ine Comment: RESULTS WERE OBTAINED BY IMMUNOASSAY AND ARE PRESUMPTIVE ONLY. POSITIVE INDICATES THE PRESENCE OF SUBSTANCE WITH CHARACTERISTICS SIMILAR TO DRUG-DRUG CLASS OR METABOLITE IN CONC. EQUAL TO OR EXCEEDING VALUES LISTED. BARBITURATES 200 NG/ML Specimen Urine - Urine Performing Organization Address [facility] Phone Number [facility] [address] [place] [address] * AMPHETAMINES-URINE RANDOM (10/19/2018 11:36 PM COMMUNITY ASSOCIATION MANAGER) Amphetamines NEG NEG-NEG [facility] MAIN LAB Comment: RESULTS WERE OBTAINED BY IMMUNOASSAY AND ARE PRESUMPTIVE ONLY. POSITIVE INDICATES THE PRESENCE OF SUBSTANCE WITH CHARACTERISTICS SIMILAR TO DRUG-DRUG CLASS OR METABOLITE IN CONC. EQUAL TO OR EXCEEDING VALUES LISTED. AMPHETAMINES 1000 NG/ML Specimen Urine - Urine Performing Organization Address [facility] Phone Number MAIN LAB [address] [place] [address] * PHOSPHORUS (10/19/2018 11:36 PM COMMUNITY ASSOCIATION MANAGER) Phosphorus 2.8Comment: NOTE NEW REFERENCE 2.0 - 4.5 MG/DL [facility] MAIN LAB RANGES Specimen Blood Performing Organization Address [facility] Phone Number MAIN LAB [address] [place] [address] * MAGNESIUM (10/19/2018 11:36 PM COMMUNITY ASSOCIATION MANAGER) Magnesium 1.9 1.6 - 2.6 mg/dL [facility] MAIN LAB Specimen Blood Performing Organization Address [facility] Phone Number MAIN LAB [address] [place] [address] * IONIZED CALCIUM (10/19/2018 11:36 PM COMMUNITY ASSOCIATION MANAGER) Ionized Calcium 1.21 1.0 - 1.3 MMOL/L [facility] MAIN LAB Specimen Blood Performing Organization Address [facility] Phone Number MAIN LAB [address] [place] [address] * LACTIC ACID(LACTATE) (10/19/2018 11:36 PM COMMUNITY ASSOCIATION MANAGER) Lactic Acid 0.9 0.5 - 2.0 MMOL/L [facility] MAIN LAB Specimen Blood Performing Organization Address [facility] Phone Number [facility]IN [facility] [address] [place] [address] * COMPREHENSIVE METABOLIC PANEL (10/19/2018 11:36 PM COMMUNITY ASSOCIATION MANAGER) Sodium 144 137 - 147 MMOL/L [...] Protein 5.4 (L) 6.0 - 8.0 G/DL [facility] Total Bilirubin 0.3 0.3 - 1.2 MG/DL MAIN LAB Albumin 2.6 (L) 3.5 - 5.0 G/DL MAIN LAB Alk Phosphatase 30 25 - 110 U/L [facility] AST (SGOT) 20 7 - 40 U/L [facility] CO2 28 21 - 30 MMOL/L [facility] ALT (SGPT) 6 (L) 7 - 56 U/L [facility] Anion Gap 6 3 - 12 MAIN LAB eGFR Non >60 >60 mL/min MAIN LAB Comment: Turkish The eGFR is not validated for use in drug dosing adjustments.Continue to use estimated creatinine clearance per dosing reference text.Please contact the Clinical Pharmacist for questions. eGFR >60 >60 mL/min [facility] Turkish Comment: The eGFR is not validated for use in drug dosing adjustments.Continue to use estimated creatinine clearance per dosing reference text.Please contact the Clinical Pharmacist for questions. Specimen Blood Performing Organization Address City/[facility]/Zipcode Phone Number [facility] [address] [place] [address] * PROTIME INR (PT) (10/19/2018 11:36 PM COMMUNITY ASSOCIATION MANAGER) Pathologist [facility] INR 1.0 0.8 - 1.2 [facility] Specimen Blood Performing Organization Address City/[facility]/Zipcode Phone Number [facility] [address] [place] [address] * CBC AND DIFF (10/19/2018 11:36 PM COMMUNITY ASSOCIATION MANAGER) Pathologist [facility] White Blood 13.0 (H) 4.5 - 11.0 K/UL [facility] Cells RBC 3.11 (L) 4.0 - 5.0 M/UL [facility] Hemoglobin 9.8 (L) 12.0 - 15.0 GM/DL [facility] Hematocrit 29.4 (L) 36 - 45 % [facility] MCV 94.3 80 - 100 FL [facility] MCH 31.5 26 - 34 PG [facility] MCHC 33.4 32.0 - 36.0 G/DL [facility] RDW 14.6 11 - 15 % MAIN LAB Platelet Count 299 150 - 400 K/UL [facility] MPV 8.6 7 - [...] Organization Address City/State/Zipcode Phone Number MAIN LAB [address] [place] [address] * TELEMETRY STRIPS-SCAN (10/19/2018 12:00 AM COMMUNITY ASSOCIATION MANAGER) Narrative Performed At Ordered by an unspecified provider. * ECG-SCAN (10/19/2018 12:00 AM COMMUNITY ASSOCIATION MANAGER) Narrative Performed At Ordered by an [...] Coronary atherosclerosis of unspecified type of vessel, [place] or graft COPD (chronic obstructive pulmonary disease) [...] TWICE DAILY, 2 doses, First dose on [place] 10/25/18 at 1245, Last dose on [place] 10/25/18 at 2100 500 mg Given 10/25/2018 2:00 [...] dose on Mon10/20/18 at 0900, Until Discontinued 200 mg Given 10/25/2018 10:25 AM CDT 200 mg Given 10/24/2018 9:58 AM CDT 10/20/2018 11:04 AM COMMUNITY ASSOCIATION MANAGER 2 g 200 mL/hr ampicillin (OMNIPEN) 2 [...] dose on Mon10/20/18 at 0900, Until Discontinued 81 mg Given 11/02/2018 8:28 AM CDT 81 mg Given 11/01/2018 8:54 AM CDT 11/02/2018 8:07 PM CDT 20 mg atorvastatin (LIPITOR) tablet 20 mg Given 20 mg, Per OG Tube, AT BEDTIME DAILY, First dose on Mon10/20/18 at 0030, Until Discontinued 20 mg Given 10/31/2018 8:27 PM CDT 20 mg Given 10/30/2018 8:08 PM CDT 10/31/2018 10:08 PM CDT 120 mL barium sulfate 40 % (VARIBAR THIN LIQUID Given ) oral powder for suspension 120 mL 120 mL, Per NG tube, ONCE, 1 dose, Mon10/31/18 at 1600, To obtain medication: Call IR at [phone] 7am -5pm Mon-Fri, if after hours call Radiology at [phone]. To be administered 12 hours before Interventional [...] 110 mL, Administer over 1 Hours, NEEDED (PATIENT CARE ASSOCIATE FROM RX), Starting 10/20/18 at 0145, Until [...] 10/29/2018 8:25 AM CDT 10/20/2018 8:55 PM COMMUNITY ASSOCIATION MANAGER 20 mg famotidine (PEPCID) injection 20 mg Given 20 mg, Intravenous, TWICE DAILY, First dose on Mon10/19/18 at 2330, Until Discontinued, DILUTE W/ 10ML NS OR D5W. GIVE IV PUSH OVER 2 MIN, 20 mg Given 10/20/2018 12:58 AM COMMUNITY ASSOCIATION MANAGER 11/03/2018 8:51 AM CDT 20 mg famotidine (PEPCID) oral suspension 20 Given mg 20 mg, Per NG tube, TWICE DAILY, First dose on [place] 10/25/18 at 2100, Until Discontinued 20 mg Given 11/02/2018 8:07 PM CDT 20 mg Given 11/02/2018 8:27 AM CDT 10/20/2018 12:58 AM COMMUNITY ASSOCIATION MANAGER 25 mcg fentaNYL citrate PF (SUBLIMAZE) Given injection 25 mcg 25 mcg, Intravenous, EVERY 2 HOURS PRN, Starting 10/20/18 at 0024, Until 10/20/18 at 0149, Pain Injectable 10/20/2018 3:00 PM COMMUNITY ASSOCIATION MANAGER 25 mcg fentaNYL citrate PF (SUBLIMAZE) Given [...] Starting [place] 11/01/18 at 1647, Until [place] 11/01/18 at 1656 50 mcg Given 11/01/2018 4:50 PM CDT 50 mcg Given 11/01/2018 4:47 PM CDT 10/26/2018 3:40 PM CDT 200 mg 100 mL/hr fluconazole (DIFLUCAN) 200 mg/NS 100 mL Given - New IVPB Bag 200 mg, Intravenous, 100 mL, Administer over 1 Hours, EVERY 24 HOURS, First dose on 10/20/18 at 1600, Until Discontinued 200 mg 100 mL/hr Given - New Bag 10/25/2018 5:30 PM CDT 200 mg 100 mL/hr Given - New Bag 10/24/2018 6:17 PM CDT 10/25/2018 12:36 PM CDT 20 mg furosemide (LASIX) injection 20 mg Given 20 mg, 2 mL, Intravenous, ONCE, 1 dose, [facility] 10/25/18 at 1145, PROTECT FROM LIGHT, 10/25/2018 6:27 PM CDT 20 mg furosemide (LASIX) injection 20 mg Given 20 mg, 2 mL, Intravenous, ONCE, 1 dose, [facility] 10/25/18 at 1800, PROTECT FROM LIGHT, 10/27/2018 8:41 AM CDT 20 mg furosemide (LASIX) injection 20 mg Given 20 mg, 2 mL, Intravenous, DAILY, First dose on [facility] 10/27/18 at 0900, Until Discontinued, PROTECT FROM LIGHT, 11/01/2018 10:04 AM CDT 20 mg furosemide (LASIX) injection 20 mg Given 20 mg, 2 mL, Intravenous, ONCE, 1 dose, [facility] 11/01/18 at 0945, PROTECT FROM LIGHT, 10/20/2018 3:00 PM COMMUNITY ASSOCIATION MANAGER 10 mL gadobenate dimeglumine (MULTIHANCE) Given injection 10 mL 10 mL, Intravenous, ONCE, 1 dose, [facility] 10/20/18 at 1530, NOTE: This is a HIGH ALERT Medication., 10/26/2018 5:00 AM CDT 10 mL gadobenate dimeglumine (MULTIHANCE) Given injection 10 mL 10 mL, Intravenous, ONCE, 1 dose, [facility] 10/26/18 at 0500, NOTE: This is a HIGH ALERT Medication., 10/28/2018 10:15 PM CDT 5,000 Units Abdominal Tissue heparin (porcine) PF syringe 5,000 Units Given 5,000 Units, Subcutaneous, EVERY 8 HOURS, 27 doses, First dose on [facility] 10/20/18 at 0600, Last dose on 10/28/18 at 2200, NOTE: This is a HIGH ALERT Medication., 5,000 Units Abdominal Tissue Given 10/28/2018 2:15 PM CDT 5,000 Units Abdominal Tissue Given 10/28/2018 6:04 AM CDT 11/03/2018 5:32 AM CDT 5,000 Units Abdomen:RLQ heparin (porcine) PF syringe 5,000 Units Given 5,000 Units, Subcutaneous, EVERY 8 HOURS, First dose on Tu10/30/18 at 1400, Until Discontinued, NOTE: This is a HIGH ALERT Medication., 5,000 Units Abdominal Tissue Given 11/02/2018 9:18 PM CDT 5,000 Units Abdominal Tissue Given 11/02/2018 1:45 PM CDT 11/01/2018 5:04 PM CDT 80 mL iodixanol (VISIPAQUE-270) 270 mg/mL Given injection 80 mL 80 mL, SEE ADMIN INSTRUCTIONS, ONCE, 1 dose, [facility] 11/01/18 at 1715, G-tube NOTE: This is a HIGH ALERT Medication., 10/20/2018 3:00 PM COMMUNITY ASSOCIATION MANAGER 100 mL iohexol (OMNIPAQUE-350) 350 mg/mL Given injection 100 mL 100 mL, Intravenous, ONCE, 1 dose, 10/20/18 at 1500, NOTE: This is a HIGH ALERT Medication., 10/20/2018 11:00 PM COMMUNITY ASSOCIATION MANAGER 20 g lactulose oral solution 20 g Given 20 g (30 mL), Per NG tube, THREE TIMES DAILY, First dose on 10/20/18 at 2245, Until Discontinued 10/29/2018 8:25 AM [...] Given 0.5-1 mg, Intravenous, ONCE, 1 dose, Tu10/30/18 at 1615, PROTECT FROM LIGHT, 10/30/2018 6:00 PM CDT 1 mg LORazepam (ATIVAN) injection 0.5-1 mg Given 0.5-1 mg, Intravenous, ONCE, 1 dose, Mon10/30/18 at 1800, PROTECT FROM LIGHT, 10/30/2018 6:32 PM CDT 1 mg LORazepam (ATIVAN) injection 1 mg Given 1 mg, Intravenous, ONCE, 1 dose, Mon10/30/18 at 1830, PROTECT FROM LIGHT, LORAZEPAM 2 MG/ML LOUISE MARES (Cabinet Override) NOW, 1 dose, Mon10/30/18 at [...] mL/hr, EVERY 8 HOURS, First dose on [facility] 10/20/18 at 1200, Until Discontinued 2 g 280 mL/hr Given - New Bag 10/23/2018 1:06 AM CDT 2 g 280 mL/hr Given - New Bag 10/22/2018 6:00 PM CDT 10/21/2018 6:55 AM CDT 2.5 mg metoprolol (LOPRESSOR) injection 2.5 mg Given 2.5 mg, Intravenous, EVERY 6 HOURS, First dose on [facility] 10/20/18 at 1330, Until Discontinued, Hold for heart rate < 60 bpm PROTECT FROM LIGHT, 2.5 mg Given 10/21/2018 1:00 AM COMMUNITY ASSOCIATION MANAGER 2.5 mg Given 10/20/2018 7:09 PM COMMUNITY ASSOCIATION MANAGER 11/01/2018 6:58 PM CDT 5 mg metoprolol (LOPRESSOR) injection 5 mg Given 5 mg, Intravenous, ONCE, 1 dose, [facility] 11/01/18 at 1845, Hold for heart rate < 60 bpm PROTECT FROM LIGHT, 10/27/2018 8:40 AM CDT 12.5 mg metoprolol tartrate (LOPRESSOR) tablet Given 12.5 mg 12.5 mg, Per OG Tube, TWICE DAILY, First dose on [facility] 10/20/18 at 0900, Until Discontinued, Hold for heart rate < 60 bpm or systolic BP < 100, 12.5 mg Given 10/26/2018 8:41 PM CDT 12.5 mg Given 10/26/2018 9:12 AM CDT 11/03/2018 8:54 AM CDT 37.5 mg metoprolol(#) (LOPRESSOR) solution 37.5 Given mg 37.5 mg, Feeding Tube, TWICE DAILY, First dose on [facility] 11/03/18 at 0900, Until Discontinued, Hold for [...] Per OG Tube, DAILY, First dose on [facility] 10/20/18 at 0900, Until Discontinued, May [...] over 24 Hours, DAILY, First dose on [facility] 10/20/18 at 0100, Until Discontinued 1 patch Arm, Left Patch/Topical Applied 10/27/2018 10:00 PM CDT 1 patch Arm, Left Patch/Topical Applied 10/26/2018 8:42 PM CDT 10/22/2018 12:04 PM CDT 500,000 Units nystatin (MYCOSTATIN) oral suspension Given 500,000 Units 500,000 Units, Oral, FOUR TIMES DAILY, First dose on [facility] 10/20/18 at 0900, Until Discontinued 500,000 Units Given 10/22/2018 8:00 AM CDT 500,000 Units Given 10/21/2018 8:13 PM CDT 11/03/2018 9:03 AM CDT 4 drops ofloxacin (FLOXIN) 0.3 % (ophthalmic for Given otic use) solution 4 drop 4 drop, Both Ears, THREE TIMES DAILY, 15 doses, First dose on 10/29/18 at 1800, Last dose on 11/03/18 at 0900 4 drops Given 11/02/2018 8:09 PM CDT 4 drops Given 11/02/2018 3:04 PM CDT 11/01/2018 9:03 AM CDT 4 mg ONDANSETRON HCL (PF) 4 MG/2 ML IJ SOLN Given (Cabinet Override) NOW, 1 dose, [facility] 11/01/18 at 0915, Created by cabinet override, Created by cabinet override, 10/30/2018 11:19 PM CDT 75 mg oseltamivir (TAMIFLU) oral suspension 75 Given mg 75 mg, Per NG tube, TWICE DAILY, 20 doses, First dose on 10/21/18 at 1215, Last dose on Mon10/30/18 at [...] 1 capsule 1 capsule, Feeding Tube, NEEDED (PATIENT CARE ASSOCIATE FROM RX), Starting 10/21/18 at 0733, Until [...] 10/22/2018 8:33 PM CDT 10/20/2018 10:10 AM COMMUNITY ASSOCIATION MANAGER 3 Diluted mL perflutren lipid microspheres (DEFINITY) Given injection 1-20 Diluted mL 1-20 Diluted mL, Intravenous, ONCE PRN, 1 dose, Starting 10/20/18 at 1009, Until 10/20/18 at 1010, For Procedure, A metal sorter may only administer Definity through a saline [...] Administer over 4 Hours, ONCE, 1 dose, 10/23/18 at 1530, Each 10mM K Phos delivers 14.7meq K+ NOTE: This is a HIGH ALERT Medication., 10/25/2018 5:44 AM CDT 20 mmol 41.7 mL/hr potassium phosphate 20 mmol in dextrose Given - New 5% (D5W) 250 mL IVPB (CENTRAL LINE ONLY) Bag 20 mmol, Intravenous, 250 mL, Administer over 6 Hours, ONCE, 1 dose, [facility] 10/25/18 at 0500, Central Line ONLY Each [...] 10/24/2018 10:04 AM CDT 10/20/2018 11:17 PM COMMUNITY ASSOCIATION MANAGER 550 mg rifaximin(#) (XIFAXAN) suspension 550 mg Given 550 mg, Per NG tube, TWICE DAILY, First dose on 10/20/18 at 2245, Until Discontinued, Reserved for peds [...] INSTRUCTIONS, AT BEDTIME DAILY, First dose on 10/20/18 at 0030, Until Discontinued, Administer Per OG Tube., 50 mg Given 10/31/2018 8:27 PM CDT 50 mg Given 10/30/2018 8:08 PM CDT 10/22/2018 9:19 AM CDT 50 mL/hr sodium chloride 0.45 % infusion Given - New 1,000 mL, Intravenous, at 50 mL/hr, Bag CONTINUOUS, Starting 10/21/18 at 0515, Until Mon10/23/18 at 0514 50 mL/hr Given - New Bag 10/21/2018 6:11 AM CDT 10/20/2018 12:59 AM COMMUNITY ASSOCIATION MANAGER 500 mL sodium chloride 0.9 % infusion Given - New 500 mL, 500 mL, Intravenous, BOLUS, 1 Bag dose, 10/20/18 at 0045 10/24/2018 8:50 PM CDT 75 mL/hr sodium chloride 0.9 % infusion Given - New 1,000 mL, Intravenous, at 75 mL/hr, Bag CONTINUOUS, Starting 10/23/18 at 0930, Until Rtinh 10/25/18 at 0929 75 mL/hr Given - New Bag 10/24/2018 5:02 AM CDT 75 mL/hr Given - New Bag 10/23/2018 9:58 AM CDT 10/28/2018 4:11 AM CDT 500 mL sodium chloride 0.9 % infusion Given - New 500 mL, 500 mL, Intravenous, BOLUS, 1 Bag dose, [place] 10/28/18 at 0345 SODIUM CHLORIDE 0.9 % IV SOLP (Cabinet Override) NOW, 1 dose, [place] 10/28/18 at 0400, Created by cabinet override, Created by cabinet override, 10/20/2018 3:00 PM COMMUNITY ASSOCIATION MANAGER 50 mL 2.5 mL/hr sodium chloride PF 0.9% injection 50 mL Given 50 mL, Intravenous, at 2.5 mL/hr, ONCE, 1 dose, [facility] 10/20/18 at 1500, DO NOT SEND [...] Given - New Bag 10/20/2018 9:16 PM COMMUNITY ASSOCIATION MANAGER 10/24/2018 10:26 AM CDT 1,000 mg 250 mL/hr vancomycin (VANCOCIN) 1,000 mg in Given - New dextrose 5% (D5W) 250 mL IVPB ([id number]) Bag 1,000 mg (1 g), Intravenous, 250 [...] 10/23/2018 9:19 AM CDT 10/20/2018 12:31 PM COMMUNITY ASSOCIATION MANAGER 1,000 mg 250 mL/hr vancomycin (VANCOCIN) 1,000 mg in sodium Given - New chloride 0.9% (NS) 250 mL IVPB Bag ([id number]) 1,000 mg (1 g), Intravenous, 250 mL, [...]
--- OUTSIDE RECORDS SUMMARY | 2019-01-28 09:02 | XMS REPORT | Encounter Summary ---
Author Author [facility] Organization [facility] Address Unknown Phone Unavailable Care Team Providers Care Brim Edge Trimmer Name Role Phone Akbar Fonseca MD PCP Reason for Visit * Auth/Cert Referred By Contact Referred To Contact Status Reason Specialty Diagnoses / Procedures Diagnoses Pneumocephalus altered mental status Encounter Details Care Team Description Date Type Department Duy Burch MD [address] Orth[facility] Lvl [address] [place] [address] [id number] MASTOIDECTOMY - SIMPLE, TYMPANOPLASTY 10/29/2018 Surgery [facility] [place] [facility] [place] [address] Social History Date Tobacco Use Types Packs/Day [...] 162.6 cm (5' 4") 10/20/2018 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 for further care . 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 Return Appointment For Neurology scheduling contact [phone] For Neurosurgery appointments call [phone] Questions About Your Stay For questions or concerns regarding your hospital stay: -DURING BUSINESS HOURS (8:00 AM - 4:30 PM): Call [phone] and ask to be transferred to your discharge attending physicia n. -AFTER BUSINESS HOURS (4:30 PM - 8:00 AM, on weekends, or holidays): Call [phone] and ask the welding machine operator plasma arc to page the on-call doctor for the discha rge attending physician. Discharging attending physician: JUDY SANTORO [[id number]] Tube Feeding Formula: Isosource 1.5 Schedule: Continuous [...] discharge Pending items needing follow up: Resume TRASH MAN Lasix at [facility]. Continue cefepime un til 11/05 then continue [...] you home. You should not drive, operate [employer] or do anything that requires concentration for [...] concerns related to the procedu re, call [phone] for Monday-Monday 7-5. After-hours and weekends, ple ase call [phone] and ask for the [facility] Director [facility]. * Appointments* Mica Javed APRN - 11/03/2018 [...] continue. Ativan has been taken off the AR. Precedex is also off the OCT [...] a day or so). Ok to resume TRASH MAN lasix dose tomorrow. Dispo: This patient is [...] Q4H PRN, calcium g luconate IV PRN (Human Service Coordinator from Rx) AND Ionized Calcium PRN AND Notify Ph ysician Ongoing, fentaNYL citrate PF Q1H PRN, ipratropium/albuterol Q4H PRN, mag nesium sulfate PRN AND [CANCELED] Magnesium PRN AND Notify Physician Fowler oing, oxyCODONE Q4H PRN, pancrelipase 20,000 Units/ sodium bicarbonate 650 mg(#) PRN (Human Service Coordinator from Rx), potassium chloride SR PRN OR [...] radiology reviewed. Julia Santoro MD 11/03/2018 Pager: [phone] * Mica Javed, SEMAJ - 11/03/2018 7:30 AM CDT Neuro Critical [...] arenchymal air and surrounding edema. Transferred to [facility] for escalation of care . Hospital and ICU course: 10/19: [facility] 10/23: LP 10/26: DC amiodarone. Start spironolactone 12.5mg daily and lasix 20mg daily. Mamta gildardo flexiseal 10/29: trach placement 10/31: DC Ativan, increase risperidone to 1mg HS, add melatonin 3mg HS. CXR to ev al for complaints of SOA. DC central line. 3/21: Lasix 20 mg; PEG placement 11/02: Metoprolol resumed, water flushes per PEG, resume tube feeds at 1900. Thro mbocytosis, slight leukocytosis, procal and cdiff sent. Trach change planned for today 11/02: Metoprolol decreased to 37.5mg. Did well on PS 5/5 overnight. DC to LTACH today Neuro/ENT: Encephalopathy Meningitis Right temporal lobe abscess Depression -Q1lnhflazjuka -PT/OT -Sertraline HS Sedation/Pain Management: Delirium -PRN [...] 160 -MAP goal > 65 - holding TRASH MAN lisinopril - Resuming metoprolol- Will drop dose to 37.5 2/ soft BP - continuePTA atrovastatin and ASA - diuresed 11/01 - Resume TRASH MAN Lasix at LTACH Respiratory: Acute hypoxic and hypercapneic respiratory failure on mechanical ventilation S/p Trach placement 10/29 per ENT Chest Xray 10/31:Progressing mixed opacities most apparent in the left perihilar region and left midlung. Persistent cardiomegaly with vascular congestion and small bilater al pleural effusions. - Currently on PS 5/5- will continue with PS open ended -TRASH MAN budesonide - trach to be changed per [...] Potassium goal >4.0 mEq/L Prophylaxis Review: A)GI: W4Lryjkpi B) Lines:Yes; Central Line; Indication: Frequent blood draws; Type: Inte rnal jugular- Remove today C) Urinary Catheter:No D) Antibiotic Usage:Yes; Infection present or suspected: Lung; Pneumonia E) VTE:Pharmacological prophylaxis; SQ Heparinand Mechanical prophylaxis; Sequential compression device F) Isolation:Droplet G)Seizures:na I) Restraints: Patient assessed for need for restraints. Disposition/Family:[facility] Primary service:NEICU Consults: ENT, ID, PT/OT, Dietary, Wound Team SUBJECTIVE Etelvina Alonso is a 58 y.o. female. Overnight Events: No new events noted. OBJECTIVE Vital Signs: Last Filed Vital Signs: 24 Hour Ra nge BP: 101/51 (11/03 699) Temp: 37.2 C (98.9 F) (11/03 0400) Pulse: 93 (11/03 0600) Respirations: 20 PER MINUTE (11/03 699) SpO2: 100 % (11/03 699) O2 Delivery: Tracheal Tube (03/23 0700) Weight: 52.2 kg (115 lb 1.3 oz) (11/03 0530) BP: (90-134)/(46-109) Temp: [37.1 C (98.8 F)-37.3 [...] (115 lb 1.3 oz), SpO2 100 %. Vassar coma score: E: 4 - Opens eyes [...] procedures reviewed. Mica Javed APRN Date: 11/03/[phone] Mrs. Alonso is in stable condition with: [...] parenchymal air and surrounding edema. Transferred to [facility] for escalation of car e. Pt intubated [...] Time Frame: Throughout Stay Status: Partially met;Ongoing Agnes Raphaeletic Intern *[phone] Associated attestation - Joy Spencer - 11/02/2018 3:09 PM CDT Discussed case with internet cafe manager & concur with internet cafe manager's documentation of assessment, interventions and goals. Erika Spencer RD, LD Pager: [phone] * Elenita Butler OT - 11/02/2018 1:16 PM CDT OCCUPATIONAL THERAPY PROGRESS NOTE Patient Name: Etelvina Alonso Room/Bed: CA2537/01 Admitting Diagnosis: altered mental status Mobility Progressive Mobility Level: Active transfer to chair Distance Walked (feet): (3 ft sidestep, then pivot) Level of Assistance: Assist X2 Activity Limited By: Lines / Medical Devices Subjective Pertinent Dx per Physician: HTN, HLD, no nhealing leg wounds, CAD s/p CABG in in [place] who presented to an OSH on 10/16 [...] enchymal air and surrounding edema. Transferred to [facility] for escalation of care. Flail sternum [...] cation of Endotracheal tube (ETT) at [facility] CPAP 40 5 5 [...] continue. Ativan has been taken off the AR. Precedex is also off the OCT [...] gentle diuresis tomorrow. Remainder of plan per SAMPLER TESTER's note. Dispo: This patient is critically ill [...] Q4H PRN, calcium g luconate IV PRN (Human Service Coordinator from Rx) AND Ionized Calcium PRN AND Notify Ph ysician Ongoing, fentaNYL citrate PF Q1H PRN, ipratropium/albuterol Q4H PRN, mag nesium sulfate PRN AND [CANCELED] Magnesium PRN AND Notify Physician Raul oing, oxyCODONE Q4H PRN, pancrelipase 20,000 Units/ sodium bicarbonate 650 mg(#) PRN (Human Service Coordinator from Rx), potassium chloride SR PRN OR potassium chloride PRN Vital Signs: Last Filed Vital Signs: 24 Hour Ra nge BP: 114/60 (11/02 899) Temp: 37.2 C (99 F) (11/02 08) Pulse: 106 (11/02 899) Respirations: 20 PER [...] radiology reviewed. Julia Santoro MD 11/02/2018 Pager: [phone] * Kiara Herman APRN - 11/02/2018 8:45 AM CDT Interventional Radiology Progress Note Today's Date: 11/02/2018 Name: Etelvina Alonso MRN: [id number] Admission Date: 10/19/2018 LOS: 14 days Subjective: [...] sponge dressing if desired. Please notify IR HONE OPERATOR for exces sive bleeding/redness/drainage noted from insertion [...] please page IR resident on-ca ll at [phone] Problem List: Active Problems: Pneumonia due to [...] Q4H PRN, calcium g luconate IV PRN (Human Service Coordinator from Rx) AND Ionized Calcium PRN AND Notify Ph ysician Ongoing, fentaNYL citrate PF Q1H PRN, ipratropium/albuterol Q4H PRN, mag nesium sulfate PRN AND [CANCELED] Magnesium PRN AND Notify Physician Raul oing, oxyCODONE Q4H PRN, pancrelipase 20,000 Units/ sodium bicarbonate 650 mg(#) PRN (Human Service Coordinator from Rx), potassium chloride SR PRN OR potassium chloride PRN Vital Signs: Last Filed Vital Signs: 24 Hour Ran ge BP: 128/102 (11/02 0600) Temp: 37.2 C (99 F) (11/02 0400) Pulse: 114 (11/02 08) Respirations: 22 PER MINUTE (11/02 837) SpO2: [...] - 4.5 MG/DL Kiara Herman APRN Pager [phone] * Mica Javed APRN - 11/02/2018 7:08 [...] arenchymal air and surrounding edema. Transferred to [facility] for escalation of care . Hospital and ICU course: 10/19: Transferred from OSH to [facility] 10/23: LP 10/26: DC amiodarone. Start spironolactone [...] Meningitis Right temporal lobe abscess Depression - [id number] - PT/OT - Sertraline HS Sedation/Pain Management: [...] - MAP goal > 65 - holding TRASH MAN lisinopril - Resuming metoprolol- Tolerated 50mg this AM- will leave at this dose, continue to eval - continue TRASH MAN atrovastatin and ASA - diuresed 11/01 Respiratory: Acute hypoxic and hypercapneic respiratory failure on mechanical ventilation S/p Trach placement 10/29 per ENT Chest Xray 10/31:Progressing mixed opacities most apparent in the left perihilar region and left midlung. Persistent cardiomegaly with vascular congestion and small bilater al pleural effusions. - Currently on PS 12/16- will continue with PS open ended - TRASH MAN budesonide - trach to be changed per [...] Potassium goal >4.0 mEq/L Prophylaxis Review: A)GI: C2Vssjpaf B) Lines:Yes; Central Line; Indication: Frequent blood [...] 24 Hour Ra nge BP: 128/102 (11/02 699) Temp: 37.2 C [...] (113 lb 8.6 oz), SpO2 100 %. Vassar coma score: E: 4 - Opens eyes [...] procedures reviewed. Mica Javed APRN Date: 11/02/[phone] I spent 45 minutes managing the care [...] wound infection as below -10/16 presented to [facility] with a few days of [...] regurgitation. Concern for bilateral LE wound infection, [facility] Bilateral vein harvest sites on lower extremities from CABG in [facility], 07/2018 Multiple cultures in [facility]. 09/07/18- Culture from R leg incision - [...] growing Pseudomonas that shows resistance to meropenem. LACTATION CONSULTANT infection likely S pneumo, which is well covered by the cefe pime and also has good LACTATION CONSULTANT penetration. Will tentatively plan for 2 weeks (from 10/23) of cefepime to treat both the LE wound infections and Strep pneumo bacter emia and suspected LACTATION CONSULTANT abscess. Tentative last day of cefepime would be 11/05. -After cefepime she should be transitioned to ceftriaxone 2 g IV BID for meningi tis. This would continue until at least 11/12 (4 weeks from 10/16). -Monitor for abx side effects -If on DC pt transfers to LTACH, their ID physicians will take over ID care. Benny Sepulveda MD Investment Consultant Division of Infectious Diseases Dr. Benjamin will round on Monday if she remains inpt. For any questions over the w eekend please page the ID fellow bone char operator at [phone] Interval History Etelvina Alonso is a 58 y.o. female with a PMH significant for CABG (07/2018) who p resented to [address] in [facility] on 10/16/18 after noting worsening cough and sternal pain from recent sternotomy and non-healing LE graft sites. Transfe rred to [facility] on 10/19/18 for right temporal lobe intraparenchymal air and edema se en on CTA. Feels good, pain and anxiety well controlled. No n/v. No f/c/diaphoresis. Afebrile, PEG placement yesterday. WBC slightly up to 11.4 Cr 0.47, stable. ROS As mentioned in 'Interval History' otherwise 10-point ROS negative Antimicrobial Start date End date Cefepime 10/16/18-10/18/18, 10/23 active Ceftriaxone 10/18/18 10/20/18 Cefedinir 09/23/18 TRASH MAN, uncertain timeframe Doxycycline 100 mg PO BID 09/06/18 TRASH MAN, uncertain timeframe [id number] mg PO BID 08/23/18 TRASH MAN, uncertain timeframe Fluconazole 150 mg PO QD 08/17/18 TRASH MAN, uncertain timeframe Vancomycin 10/20/1810/24 Ampicillin 10/20/18 10/20/18 Fluconazole 10/20/18 10/26/18 Oseltamivir 10/21/1810/30 Meropenem 10/20/1810/23 Bactrim 08/17/18 TRASH MAN, uncertain timeframe Estimated Creatinine Clearance: 72.1 mL/min [...] Q4H PRN, calcium g luconate IV PRN (Human Service Coordinator from Rx) AND Ionized Calcium PRN AND Notify Ph ysician Ongoing, fentaNYL citrate PF Q1H PRN, ipratropium/albuterol Q4H PRN, mag nesium sulfate PRN AND [CANCELED] Magnesium PRN AND Notify Physician Raul oing, oxyCODONE Q4H PRN, pancrelipase 20,000 Units/ sodium bicarbonate 650 mg(#) PRN (Human Service Coordinator from Rx), potassium chloride SR PRN OR potassium chloride PRN Physical Examination Vital Signs: Last Vital Signs: 24 Hour Ran ge BP: 128/102 (11/02 699) Temp: 37.2 C [...] 24 Ramiro r Range BP: 118/83 (11/02 599) Temp: 37.2 [...] or concerns. Juvenal Gottlieb MD Otolaryngology Resident, [phone] * Mayda Demarco RN - 11/01/2018 5:03 [...] plan for today. Remainder of plan per SAMPLER TESTER's note. Dispo: This patient is critically ill [...] 20,000 Units/ sodium bicarbonate 650 mg(#) PRN (Human Service Coordinator from Rx), potassium chloride SR PRN OR [...] radiology reviewed. Julia Santoro MD 11/01/2018 Pager: [phone] * Elenita Butler, OT - 11/01/2018 11:22 AM CDT OCCUPATIONAL THERAPY PROGRESS NOTE Patient Name: Etelvina Alonso Room/Bed: [place] [address] Admitting Diagnosis: altered mental status Mobility Progressive Mobility Level: Stand Distance Walked (feet): 3 ft(sidesteps) Level of Assistance: Assist X2 Assistive Device: Hand Held Activity Limited By: Lines / Medical Devices;Fatigue;Weakness Subjective Pertinent Dx per Physician: HTN, HLD, no nhealing leg wounds, CAD s/p CABG in in [place] who presented to an OSH on 10/16 with shortness of breath and melquiades st pains and found to have a RUL pneumonia. She was intubated on 10/17 2/2 worseni ng respiratory status and AMS. Workup [...] be determined Therapist: Elenita Butler, OT Date: 11/01/2018 * Louise Hennessy, PT [...] enchymal air and surrounding edema. Transferred to [facility] for escalation of care. Flail sternum [...] infection as below -10/16 presented to [facility] with a few days of fever, cough [...] regurgitation. Concern for bilateral LE wound infection, [facility] Bilateral vein harvest sites on lower extremities from CABG in [facility], 07/2018 Multiple cultures in [facility]. 09/07/18- Culture from R leg incision - [...] growing Pseudomonas that shows resistance to meropenem. LACTATION CONSULTANT infection likely S pneumo, which is well covered by the cefe pime and also has good LACTATION CONSULTANT penetration. Will tentatively plan for 2 weeks (from 10/23) of cefepime to treat both the LE wound infections and Strep pneumo bacter emia and suspected LACTATION CONSULTANT abscess. Tentative last day of cefepime would be 11/05. -After cefepime she could be transitioned to ceftriaxone 2 g IV BID for meningit is. This would continue until at least 11/12 (4 weeks from 10/16). -Monitor for abx side effects -If on DC pt transfers to LTACH, their ID physicians will take over ID care. Benny Sepulveda MD Investment Consultant Division of Infectious Diseases Interval History Etelvina Alonso is a 58 y.o. female with a PMH significant for CABG (07/2018) who p resented to [address] in [facility] on 10/16/18 after noting worsening cough and sternal pain from recent sternotomy and non-healing LE graft sites. Transfe rred to [facility] on 10/19/18 for right temporal lobe [...] 10/23 active Ceftriaxone 10/18/18 10/20/18 Cefedinir 09/23/18 TRASH MAN, uncertain timeframe Doxycycline 100 mg PO BID 09/06/18 TRASH MAN, uncertain timeframe [id number] mg PO BID 08/23/18 TRASH MAN, uncertain timeframe Fluconazole 150 mg PO QD 08/17/18 TRASH MAN, uncertain timeframe Vancomycin 10/20/1810/24 Ampicillin 10/20/18 10/20/18 Fluconazole 10/20/18 10/26/18 Oseltamivir 10/21/1810/30 Meropenem 10/20/1810/23 Bactrim 08/17/18 TRASH MAN, uncertain timeframe Estimated Creatinine Clearance: 72.1 mL/min [...] 20,000 Units/ sodium bicarbonate 650 mg(#) PRN (Human Service Coordinator from Rx), potassium chloride SR PRN OR potassium chloride PRN Physical Examination Vital Signs: Last Vital Signs: 24 Hour Ran ge BP: 130/100 (11/01 0800) Temp: 37.2 C (98.9 F) (11/01 [...] NDT; PIV x2 Laboratory Hematology Recent Labs 10/30/1840410/31/18 0250 11/01/18 0415 WBC 11.0 11.1* 8.5 [...] records, intensive abx monit oring. * Shelby Collier APRN-HONE OPERATOR - 11/01/2018 7:35 AM CDT Neuro Critical [...] arenchymal air and surrounding edema. Transferred to [facility] for escalation of care . Hospital and [...] - MAP goal > 65 - holding TRASH MAN lisinopril and Toprol - plan to resume low dose BB after PEG placement - continue TRASH MAN atrovastatin and ASA - gentle diuresis with lasix Respiratory: Acute hypoxic and hypercapneic respiratory failure on mechanical ventilation S/p Trach placement 10/29 per ENT Chest Xray 10/31:Progressing mixed opacities most apparent in the left perihilar region and left midlung. Persistent cardiomegaly with vascular congestion and small bilater al pleural effusions. - Currently on PS 5/5 - TRASH MAN budesonide - trach to be changed per [...] Potassium goal >4.0 mEq/L Prophylaxis Review: A)GI: I2Vxmuage B) Lines:Yes; Central Line; Indication: Frequent blood [...] (113 lb 8.6 oz), SpO2 98 %. Vassar coma score: E: 4 - Opens eyes [...] radiologic and diag nostic procedures reviewed. ZAC KoromaHONE OPERATOR Date: 11/01/[phone] I spent 55 minutes managing the care [...] Image 10/31/2018 2:30 PM Wound Base Assessment Moist;Snyder 10/31/2018 2:30 PM Surrounding Skin Assessment Dry;Intact [...] and change in wound care recs. See b jovany. RECOMMEND: - Discontinue Santyl to RLE and [...] BSN, CWON Wound/Ostomy Nursing Consult Service Office: [phone] Pager: [phone] Wound/Ostomy Team Pager (After Hours/Weekends): [phone] * Judy Santoro MD - 10/31/2018 11:53 [...] risperdal also administered but uncertain effect as [facility] staff restarted precedex (inadvertently left on OCT) before giving antipsycho tic enough time. Have taken precedex and ativan off OCT. Ordered 1mg risperdal and melatonin for tonight. Will see how she does. Likely to need PEG - will discuss with pt's today. Remainder of plan per SAMPLER TESTER's note. Dispo: This patient is critically ill [...] 20,000 Units/ sodium bicarbonate 650 mg(#) PRN (Human Service Coordinator from Rx), potassium chloride SR PRN OR potassium chloride PRN Vital Signs: Last Filed Vital Signs: 24 Hour Ra nge BP: 150/76 (10/31 1100) Temp: 37.2 C (98.9 F) (10/31 0400) Pulse: 101 (10/31 1100) Respirations: 22 PER MINUTE (10/31 1100) SpO2: 100 % (10/31 1100) O2 Delivery: Tracheal Tube (10/31 1099) BP: [...] radiology reviewed. Julia Santoro MD 10/31/2018 Pager: [phone] * Nam Butleron, OT - 10/31/2018 10:05 AM CDT OCCUPATIONAL THERAPY PROGRESS NOTE Patient Name: Etelvina Alonso Room/Bed: [place] [address] Admitting Diagnosis: altered mental status Mobility Progressive Mobility Level: Stand Level of Assistance: Assist X2 Assistive Device: Hand Held Time Tolerated: 11-30 minutes Activity Limited By: Lines / Medical Devices;Patient request to stop;Dizziness;F atigue Subjective Pertinent Dx per Physician: HTN, HLD, no nhealing leg wounds, CAD s/p CABG in in [place] who presented to an OSH on 10/16 [...] be determined Therapist: Elenita Butler, OT Date: 10/31/2018 * Louise Hennessy, PT [...] 2/2 worsening respiratory status and AMS. On 3/8, CTA with R temporal lobe intrapar enchymal air and surrounding edema. Transferred to [facility] for escalation of care. Flail sternum [...] wound infection as below -10/16 presented to [facility] with a few days of [...] regurgitation. Concern for bilateral LE wound infection, [facility] Bilateral vein harvest sites on lower extremities from CABG in [facility] [place], 07/2018 Multiple cultures in [facility]. 09/07/18- Culture from R leg incision - [...] growing Pseudomonas that shows resistance to meropenem. LACTATION CONSULTANT infection likely S pneumo, which is well covered by the cefe pime and also has good LACTATION CONSULTANT penetration. Will tentatively plan for 2 weeks (from 10/23) of cefepime to treat both the LE wound infections and Strep pneumo bacter emia and suspected LACTATION CONSULTANT abscess. Tentative last day of cefepime would be 11/05. -After cefepime she could be transitioned to ceftriaxone 2 g IV BID for meningit is. This would continue until at least 11/12 (4 weeks from 10/16). -Monitor for abx side effects -If on DC pt transfers to LTACH, their ID physicians will take over ID care. Shan Walker DO Infectious Diseases Fellow Pager # [phone] Discussed with attending on service, Dr. Sepulveda I have seen, personally evaluated, and discussed the patient's care with Dr. Maria mahmood, Infectious Diseases Fellow. I agree with the subjective notations, object chema findings and agree with the plan of care as documented in this note with anil ts made by me as necessary. Benny Sepulveda MD Investment Consultant Division of Infectious Diseases Interval History Etelvina Alonso is a 58 y.o. female with a PMH significant for CABG (07/2018) who p resented to [address] in [facility] on 10/16/18 after noting worsening cough and sternal pain from recent sternotomy and non-healing LE graft sites. Transfe rred to [facility] on 10/19/18 for right temporal lobe [...] 10/23 active Ceftriaxone 10/18/18 10/20/18 Cefedinir 09/23/18 TRASH MAN, uncertain timeframe Doxycycline 100 mg PO BID 09/06/18 TRASH MAN, uncertain timeframe [id number] mg PO BID 08/23/18 TRASH MAN, uncertain timeframe Fluconazole 150 mg PO QD 08/17/18 TRASH MAN, uncertain timeframe Vancomycin 10/20/1810/24 Ampicillin 10/20/18 10/20/18 Fluconazole 10/20/18 10/26/18 Oseltamivir 10/21/1810/30 Meropenem 10/20/1810/23 Bactrim 08/17/18 TRASH MAN, uncertain timeframe Estimated Creatinine Clearance: 72.1 mL/min [...] 20,000 Units/ sodium bicarbonate 650 mg(#) PRN (Human Service Coordinator from Rx), potassium chloride SR PRN OR potassium chloride PRN Physical Examination Vital Signs: Last Vital Signs: 24 Hour Ran ge BP: 132/70 (10/31 699) Temp: 37.2 C [...] NDT; PIV x2 Laboratory Hematology Recent Labs 10/29/1841710/30/1840410/31/18 0250 WBC 11.7* 11.0 11.1* HGB 7.5* 8.6* 8.9* HCT 23.0* 25.4* 26.1* PLTCT 480* 481* 545* Chemistry Recent Labs 10/29/1841710/30/1840410/30/18 1945 10/31/18 0250 NA 138 135* 138 [...] records, intensive abx monit oring. * Mica Javed APRN - 10/31/2018 7:44 [...] pneumonia. She was intubated on 10/17 2 / worsening respiratory status and AMS. On 10/19, CTA with R temporal lobe intrap arenchymal air and surrounding edema. Transferred to [facility] for escalation of care . Hospital and ICU course: 10/19: [facility] 10/26: DC amiodarone. Start spironolactone 12.5mg daily [...] goal: < 160 MAP goal > 65 TRASH MAN lisinopril on hold TRASH MAN atrovastatin and ASA Echo: 35-40%, mitral valve borderline prolapse and regurg no vegetations JYOTSNA:There is a small echogenic mass on the coaptation line of the aortic valve . Appears to likely be associated with the left coronary cusp. A vegetation Respiratory: RUL Pneumonia Date of Intubation: 10/17 Reason: Airway protection - Currently on PS 5/, had to be placed back on MMV overnight TRASH MAN budesonide Complained of SOA overnight- will get [...] Potassium goal >4.0 mEq/L Prophylaxis Review: A)GI: [id number] B) Lines:Yes; Central Line; Indication: Frequent blood [...] (98.9 F) (10/31 0400) Pulse: 86 (10/31 0600) Respirations: 28 PER MINUTE (10/31 699) SpO2: [...] and diag nostic procedures reviewed. Mica Javed, SAMPLER TESTER Date: 10/31/[phone] I spent 45 minutes managing the care [...] parenchymal air and surrounding edema. Transferred to [facility] for escalation of car e. Pt remains intubated and sedated on Precedex now via trach placed 10/29. NGT in place. EN of Isosource 1.5 back to 50 ml/hr. 3-day EN ave 95% m in kcal goal and 85% min protein goal. Obtained subjective data from pt 10/29 pr ior to OR. Pt notes regular diet TRASH MAN with good intake and stable wt. New [...] wound infection as below -10/16 presented to [facility] with a few days of [...] regurgitation. Concern for bilateral LE wound infection, [facility] Bilateral vein harvest sites on lower extremities from CABG in [facility] j[place], 07/2018 Multiple cultures in [facility]. 09/07/18- Culture from R leg incision - [...] growing Pseudomonas that shows resistance to meropenem. LACTATION CONSULTANT infection likely S pneumo, which is well covered by the cefe pime and also has good LACTATION CONSULTANT penetration. Will tentatively plan for 2 weeks (from 10/23) of cefepime to treat both the LE wound infections and Strep pneumo bacter emia and suspected LACTATION CONSULTANT abscess. Tentative last day of cefepime would [...] Walker DO Infectious Diseases Fellow Pager # [phone] Discussed with attending on service, Dr. Sepulveda I have seen, personally evaluated, and discussed the patient's care with Dr. Maria mahmood, Infectious Diseases Fellow. I agree with the subjective notations, object chema findings and agree with the plan of care as documented in this note with anil ts made by me as necessary. Benny Sepulveda MD Investment Consultant Division of Infectious Diseases Interval History Etelvina Alonso is a 58 y.o. female with a PMH significant for CABG (07/2018) who p resented to [facility] in [facility] on 10/16/18 after noting worsening cough and sternal pain from recent sternotomy and non-healing LE graft sites. Transfe rred to [facility] on 10/19/18 for right temporal lobe [...] 10/23 active Ceftriaxone 10/18/18 10/20/18 Cefedinir 09/23/18 TRASH MAN, uncertain timeframe Doxycycline 100 mg PO BID 09/06/18 TRASH MAN, uncertain timeframe [id number] mg PO BID 08/23/18 TRASH MAN, uncertain timeframe Fluconazole 150 mg PO QD 08/17/18 TRASH MAN, uncertain timeframe Vancomycin 10/20/1810/24 Ampicillin 10/20/18 10/20/18 Fluconazole 10/20/18 10/26/18 Oseltamivir 10/21/18 active Meropenem 10/20/1810/23 Bactrim 08/17/18 TRASH MAN, uncertain timeframe Estimated Creatinine Clearance: 72.1 mL/min [...] Prior cultures 10/16/18 Blood cx (from [facility]): Strep Pneumo R- Clindamycin and erythromcyin [...] 20,000 Units/ sodium bicarbonate 650 mg(#) PRN (Human Service Coordinator from Rx), potassium chloride SR PRN OR [...] RE-ASSESSMENT NOTE Patient Name: Etelvina Alonso Room/Bed: [place] [address] Admitting Diagnosis: altered mental status Mobility Progressive Mobility Level: Sit on edge of bed Distance Walked (feet): 0 ft Level of Assistance: Assist X2 Assistive Device: Hand Held Time Tolerated: 11-30 minutes Activity Limited By: Lines / Medical Devices;Fatigue(anxiety) Subjective Pertinent Dx per Physician: HTN, HLD, no nhealing leg wounds, CAD s/p CABG in in [place] who presented to an OSH on 10/16 with shortness of breath and melquiades st pains and found to have a RUL pneumonia. She was intubated on 10/17 2/2 worseni ng respiratory status and AMS. Workup [...] RUL pneumonia. She was intubated on 10/17 22 worsening respiratory status and AMS. On 10/19, CTA with R temporal lobe intrapar enchymal air and surrounding edema. Transferred to [facility] for escalation of care. Flail sternum [...] PT Discharge Recommendations: Inpatient Setting Therapist: Olimpia Broderick, PT Date: 10/30/2018 T * Abbie Cleaning RN - 10/30/2018 8:15 AM CDT Wound Ostomy Note NAME:Etelvina MCKOYN: [id number] :1960 AGE: 58 y.o. ADMISSION DATE: 10/19/2018 [...] Moist;Pale;Yellow 10/30/2018 8:14 AM Surrounding Skin Assessment Dry;Intact;Snyder 10/30/2018 8:14 AM Wound Status (Wound Team [...] to prevent shear ing at coccyx/sacrum. Abbie Cleaning, RN, BSN, CWON Wound/Ostomy Nursing Consult Service Office: [phone] Pager: [phone] Wound/Ostomy Team Pager (After Hours/Weekends): [phone] Will continue to follow. * Shan Walker [...] wound infection as below -10/16 presented to [facility] with a few days of [...] regurgitation. Concern for bilateral LE wound infection, [facility] Bilateral vein harvest sites on lower extremities from CABG in [facility] [place], 07/2018 Multiple cultures in [facility]. 09/07/18- Culture from R leg incision - [...] growing Pseudomonas that shows resistance to meropenem. LACTATION CONSULTANT infection likely S pneumo, which is well covered by the cefe pime and also has good LACTATION CONSULTANT penetration. Will tentatively plan for 2 weeks (from 10/23) of cefepime to treat both the LE wound infections and Strep pneumo bacter emia and suspected LACTATION CONSULTANT abscess. Tentative last day of cefepime would be 11/05. -After cefepime she could be transitioned to ceftriaxone 2 g IV BID for meningit is. This would continue until at least 11/12 (4 weeks from 10/16). -Monitor for abx side effects -Continue oseltamivir for influenza x 10 days total, through 10/30 (today) Shan Walker DO Infectious Diseases Fellow Pager # [phone] Discussed with attending on service, Dr. Sepulveda Interval History Etelvina Alonso is a 58 y.o. female with a PMH significant for CABG (07/2018) who p resented to [facility] in [facility] on 10/16/18 after noting worsening cough and sternal pain from recent sternotomy and non-healing LE graft sites. Transfe rred to [facility] on 10/19/18 for right temporal lobe [...] 10/23 active Ceftriaxone 10/18/18 10/20/18 Cefedinir 09/23/18 TRASH MAN, uncertain timeframe Doxycycline 100 mg PO BID 09/06/18 TRASH MAN, uncertain timeframe [id number] mg PO BID 08/23/18 TRASH MAN, uncertain timeframe Fluconazole 150 mg PO QD 08/17/18 TRASH MAN, uncertain timeframe Vancomycin 10/20/1810/24 Ampicillin 10/20/18 10/20/18 Fluconazole 10/20/18 10/26/18 Oseltamivir 10/21/18 active Meropenem 10/20/1810/23 Bactrim 08/17/18 TRASH MAN, uncertain timeframe Estimated Creatinine Clearance: 72.1 mL/min [...] 20,000 Units/ sodium bicarbonate 650 mg(#) PRN (Human Service Coordinator from Rx), potassium chloride SR PRN OR potassium chloride PRN Physical Examination Vital Signs: Last Vital Signs: 24 Hour Ran ge BP: 90/59 (10/30 617) Temp: 37.2 C (98.9 F) (10/30 0400) Pulse: 61 (10/30 617) Respirations: 23 PER MINUTE (10/30 617) SpO2: 100 % (10/30 617) O2 Delivery: Tracheal Tube (10/30 06) SpO2 Pulse: 56 (10/30 0300) BP: (89-121)/(47-89) [...] arenchymal air and surrounding edema. Transferred to [facility] for escalation of care . Hospital and ICU course: 10/19: [facility]SH [facility] 10/26: DC amiodarone. Start spironolactone 12.5mg daily [...] MAP goal > 65 Continue spironolactone - TRASH MAN lisinopril on hold will discuss starting tomorrow TRASH MAN atrovastatin and ASA Echo today: 35-40%, mitral [...] - will get trach with ENT today TRASH MAN budesonide Influenza virus positive GI: Feeding: NPO, [...] Potassium goal >4.0 mEq/L Prophylaxis Review: A)GI: [id number] B) Lines:Yes; Central Line; Indication: Frequent blood [...] procedures reviewed. Pankaj Bunn MD Date: 10/30/[phone] Associated attestation - Judy Santoro MD - [...] connected to ventilator NC/AT Face symmetric Right Lincoln and Telfa removed at bedside this AM, [...] to OR with RT. Handoff given to TABLE TENDER. VSS. * Benny Sepulveda MD - 10/29/2018 [...] wound infection as below -10/16 presented to [facility] with a few days of [...] regurgitation. Concern for bilateral LE wound infection, [facility] Bilateral vein harvest sites on lower extremities from CABG in [facility] [place], 07/2018 Multiple cultures in [facility]. 09/07/18- Culture from R leg incision - [...] growing Pseudomonas that shows resistance to meropenem. LACTATION CONSULTANT infection likely S pneumo, which is well covered by the cefe pime and also has good LACTATION CONSULTANT penetration. Will tentatively plan for 2 weeks (from 10/23) of cefepime to treat both the LE wound infections and Strep pneumo bacter emia and suspected LACTATION CONSULTANT abscess. Tentative last day of cefepime would [...] Walker DO Infectious Diseases Fellow Pager # [phone] Discussed with attending on service, Dr. Sepulveda I have seen, personally evaluated, and discussed the patient's care with Dr. Maria mahmood, Infectious Diseases Fellow. I agree with the subjective notations, object chema findings and agree with the plan of care as documented in this note with anil ts made by me as necessary. Benny Sepulveda MD Investment Consultant Division of Infectious Diseases Interval History Etelvina Alonso is a 58 y.o. female with a PMH significant for CABG (07/2018) who p resented to [facility] in [facility] on 10/16/18 after noting worsening cough and sternal pain from recent sternotomy and non-healing LE graft sites. Transfe rred to [facility] on 10/19/18 for right temporal lobe [...] 10/23 active Ceftriaxone 10/18/18 10/20/18 Cefedinir 09/23/18 TRASH MAN, uncertain timeframe Doxycycline 100 mg PO BID 09/06/18 TRASH MAN, uncertain timeframe [id number] mg PO BID 08/23/18 TRASH MAN, uncertain timeframe Fluconazole 150 mg PO QD 08/17/18 TRASH MAN, uncertain timeframe Vancomycin 10/20/1810/24 Ampicillin 10/20/18 10/20/18 Fluconazole 10/20/18 10/26/18 Oseltamivir 10/21/18 active Meropenem 10/20/1810/23 Bactrim 08/17/18 TRASH MAN, uncertain timeframe Estimated Creatinine Clearance: 72.4 mL/min [...] mcg/NS 100 ml IV drip 0.6 mcg/kg/hr (10/29/18724) PRN and Respiratory Meds:acetaminophen Q4H PRN, calcium gluconate IV PRN (On Ca ll from Rx) AND Ionized Calcium PRN AND Notify Physician Ongoing, fentaN YL citrate PF Q2H PRN, ipratropium/albuterol Q4H PRN, magnesium sulfate PRN AN D [CANCELED] Magnesium PRN AND Notify Physician Ongoing, oxyCODONE Q4H PRN , pancrelipase 20,000 Units/ sodium bicarbonate 650 mg(#) PRN (Human Service Coordinator from Rx), potassium chloride SR PRN OR potassium chloride PRN Physical Examination Vital Signs: Last Vital Signs: 24 Hour Ran ge BP: 108/51 (10/30 799) Temp: 37.1 C [...] arenchymal air and surrounding edema. Transferred to [facility] for escalation of care . Hospital and ICU course: 10/19: Transferred from OSH to [facility] 10/26: DC amiodarone. Start spironolactone 12.5mg daily [...] MAP goal > 65 Continue spironolactone - TRASH MAN lisinopril on hold will discuss starting tomorrow TRASH MAN atrovastatin and ASA Echo today: 35-40%, mitral [...] - will get trach with ENT today TRASH MAN budesonide Influenza virus positive GI: Feeding: NPO, [...] Potassium goal >4.0 mEq/L Prophylaxis Review: A)GI: [id number] B) Lines:Yes; Central Line; Indication: Frequent blood [...] (113 lb 15.7 oz), SpO2 99 %. Vassar coma score: E: 4 - Opens eyes [...] (Last 24 hours) Glucose: (!) 131 (10/29/18 0408) Lab Review: Pertinent labs reviewed Radiology and Other Diagnostic Procedures Review: Pertinent radiologic and diag nostic procedures reviewed. Pankaj Bunn MD Date: 10/29/[phone] Associated attestation - Judy Santoro MD - [...] or concerns. Juvenal Gottlieb MD Otolaryngology Resident, 327 * Juvenal Gottlieb MD - 10/28/2018 9:22 [...] or concerns. Juvenal Gottlieb MD Otolaryngology Resident, 327 * Pankaj Bunn MD - 10/28/2018 6:12 [...] pneumonia. She was intubated on 10/17 2 / worsening respiratory status and AMS. On 10/19, CTA with R temporal lobe intrap arenchymal air and surrounding edema. Transferred to [facility] for escalation of care . Hospital and ICU course: 10/19: Transferred from OSH to [facility] 10/26: DC amiodarone. Start spironolactone 12.5mg daily [...] goal: < 160 MAP goal > 65 TRASH MAN metoprolol Start spironolactone - DC amiodarone (started for AFib ppx) - TRASH MAN lisinopril on hold will discuss starting tomorrow TRASH MAN atrovastatin and ASA - TRASH MAN plavix on hold Echo today: 35-40%, mitral [...] trach placement with ENT early next week TRASH MAN budesonide resumed Influenza virus positive PS/CPAP 4 [...] Potassium goal >4.0 mEq/L Prophylaxis Review: A)GI: [id number] B) Lines:Yes; Central Line; Indication: Frequent blood [...] (10/28 0442) Respirations: 27 PER MINUTE (10/28 044) SpO2: 100 % (10/28 0442) O2 Delivery: Endotracheal Tube (Oral) (10/28 040) Weight: 52.6 kg (115 lb 15.4 oz) [...] procedures reviewed. Pankaj Bunn MD Date: 10/28/[phone] Associated attestation - Farhad Perez MD - [...] 7.5, iron deficiency CAD; recent CABGx4 in [place] in Jul 2018. Asa 81, atorvastatin [...] Hold heparin for the OR. NEICU Attending Service And Repair Supervisor Attestation Etelvina Alonso is a 58 y.o. [...] arenchymal air and surrounding edema. Transferred to [facility] for escalation of care . Hospital and ICU course: 10/19: Transferred from OSH to [facility] 10/26: DC amiodarone. Start spironolactone 12.5mg daily [...] goal: < 160 MAP goal > 65 TRASH MAN metoprolol Start spironolactone - DC amiodarone (started for AFib ppx) - TRASH MAN lisinopril on hold will discuss starting tomorrow TRASH MAN atrovastatin and ASA - TRASH MAN plavix on hold Echo today: 35-40%, mitral [...] trach placement with ENT early next week TRASH MAN budesonide resumed Influenza virus positive PS/CPAP 4 [...] Potassium goal >4.0 mEq/L Prophylaxis Review: A)GI: S5Gompiih B) Lines:Yes; Central Line; Indication: Frequent blood [...] (117 lb 8.1 oz), SpO2 100 %. Vassar coma score: E: 4 - Opens eyes [...] (Last 24 hours) Glucose: (!) 176 (10/27/18 5103) Lab Review: Pertinent labs reviewed Radiology and Other Diagnostic Procedures Review: Pertinent radiologic and diag nostic procedures reviewed. Pankaj Bunn MD Date: 10/27/[phone] Associated attestation - Farhad Perez MD - [...] months administration. CAD- recent emergent CABG in [place], [place]. She was recently on amiodarone for prophylaxis and failed to have this discontinued in clinic followup. She was g iven plavix by surgeon in [place] for 3mo duration after CABG per their [...] will be able to place PICC for half-way abx. Continue meropenem and vancomycin Fluconazole for thrush Oseltamivir for + influenza Persistent leukocytosis Endo: normoglycemic NEICU Attending Service And Repair Supervisor Attestation Etelvina Alonso is a 58 y.o. [...] prophylaxis CV: CAD- recent emergent CABG in [place], [place]. She was recently on amiodarone for prophylaxis and failed to have this discontinued in clinic followup. She was g iven plavix by surgeon in [place] for 3mo duration after CABG per their [...] will be able to place PICC for half-way abx. Continue meropenem and vancomycin Fluconazole for thrush Oseltamivir for + influenza Persistent leukocytosis Endo: normoglycemic NEICU Attending Service And Repair Supervisor Attestation Etelvina Alonso is a 58 y.o. [...] will follow up after . Therapist: Elenita Butler OT Date: 10/26/2018 * [...] wound infection as below -10/16 presented to [facility] with a few days of [...] regurgitation. Concern for bilateral LE wound infection, [facility] Bilateral vein harvest sites on lower extremities from CABG in [facility], 07/2018 Multiple cultures in [facility]. 09/07/18- Culture from R leg incision - [...] Pseudomonas that shows resis tance to meropenem. LACTATION CONSULTANT infection likely S pneumo, which is well covered by the cefepime and also has good LACTATION CONSULTANT penetration. Will tentatively plan for 2 weeks (from 10/23) of cefepime to treat both the LE wound infections and Strep pneumo b acteremia and suspected LACTATION CONSULTANT abscess. Tentative last day of cefepime would [...] Shan Walker, Infectious Diseases Fellow Pager # [phone] Discussed with attending on service, Dr. Sepulveda I have seen, personally evaluated, and discussed the patient's care with Dr. Maria mahmood, Infectious Diseases Fellow. I agree with the subjective notations, object chema findings and agree with the plan of care as documented in this note with anil ts made by me as necessary. Benny Sepluveda MD Investment Consultant Division of Infectious Diseases I will round on Monday. For any questions over the weekend please page the ID chantelle leonard bone char operator at [phone] Interval History Etelvina Alonso is a 58 y.o. female with a PMH significant for CABG (07/2018) who p resented to [facility] in [facility] on 10/16/18 after noting worsening cough and sternal pain from recent sternotomy and non-healing LE graft sites. Transfe rred to [facility] on 10/19/18 for right temporal lobe intraparenchymal air and edema se en on CTA. Afebrile, intubated V/AC, 18, 40%, 5 Dexmedetomidine WBC 12.6 Cr 0.41 I/O: 2460/3374 (-913) Discussed with pt's at bedside Unable to complete ROS due to pt mental status Antimicrobial Start date End date Cefepime 10/16/18-10/18/18, 10/23 active Ceftriaxone 10/18/18 10/20/18 Cefedinir 09/23/18 TRASH MAN, uncertain timeframe Doxycycline 100 mg PO BID 09/06/18 TRASH MAN, uncertain timeframe [id number] mg PO BID 08/23/18 TRASH MAN, uncertain timeframe Fluconazole 150 mg PO QD 08/17/18 TRASH MAN, uncertain timeframe Vancomycin 10/20/1810/24 Ampicillin 10/20/18 10/20/18 Fluconazole 10/20/18 active Oseltamivir 10/21/18 active Meropenem 10/20/1810/23 Bactrim 08/17/18 TRASH MAN, uncertain timeframe Estimated Creatinine Clearance: 73.1 mL/min [...] Prior cultures 10/16/18 Blood cx (from [facility]): Strep Pneumo R- Clindamycin and erythromcyin [...] mcg/NS 100 ml IV drip 0.7 mcg/kg/hr (10/26/18 0726) PRN and Respiratory Meds:acetaminophen Q6H PRN, calcium gluconate IV PRN (On Ca ll from Rx) AND Ionized Calcium PRN AND Notify Physician Ongoing, fentaN YL citrate PF Q2H PRN, ipratropium/albuterol Q4H PRN, magnesium sulfate PRN AN D [] Magnesium PRN AND Notify Physician Ongoing, oxyCODONE Q4H PRN, pancrelipase 20,000 Units/ sodium bicarbonate 650 mg(#) PRN (Human Service Coordinator from Rx), potassium chloride SR PRN OR potassium chloride PRN Physical Examination Vital Signs: Last Vital Signs: 24 Hour Ran ge BP: 96/57 (10/26 699) Temp: 37.1 C (98.8 F) (10/26 0400) Pulse: 64 (10/26 699) Respirations: 28 PER MINUTE (10/26 699) SpO2: 100 % (10/26 699) O2 Delivery: Endotracheal Tube (Oral) (10/26 299) SpO2 Pulse: 57 (10/26 699) BP: (93-118)/(36-92) [...] Recent Labs 10/24/18 0200 10/25/18 0319 10/26/18 031 WBC 16.3* 13.9* 12.6* HGB 8.9* 8.0* [...] patient and providing recommendations regarding management including furth er diagnostic testing and antimicrobial therapy. * Ling Capellan PA-C - 10/26/2018 7:27 AM CDT CTS update note: Etelvina Lamb a 58 y.o.femalewith history of HTN, HLD, no nhealing leg wo unds, CAD s/p CABG in07/2018 in [place] who presented to an OSH on 10/16 with sh ortness of breath and chest pains and found to have a RUL pneumonia. She was int ubated on 10/17 2/2 worsening respiratory status and AMS. Workup showed cerebritis , tegmen dehisence, encephalocele, possible temporal lobe abscess. She has faile d ventilator weaning since transfer to [facility]. CTS is consulted for evaluation of [...] arenchymal air and surrounding edema. Transferred to [facility] for escalation of care . Hospital and ICU course: 10/19: Transferred from OSH to [facility] 10/26: DC amiodarone. Start spironolactone 12.5mg daily [...] goal: < 160 MAP goal > 65 TRASH MAN metoprolol Start spironolactone - DC amiodarone (started for AFib ppx) - TRASH MAN lisinopril on hold will discuss starting tomorrow TRASH MAN atrovastatin and ASA - TRASH MAN plavix on hold Echo today: 35-40%, mitral [...] trach placement with ENT early next week TRASH MAN budesonide resumed Influenza virus positive - PaO2 [...] Pressure Injuries) 10/19/182329 Left Leg Surgical Incision (Act chema) 10/19/182329 Leg Wound Orientation: Left Wound Type: [...] None 11/03/2018 8:00 AM Wound Base Assessment Moist;Snyder 11/03/2018 12:00 AM Surrounding Skin Assessment Intact [...] Number of days: 16 Prophylaxis Review: A)GI: [id number] B) Lines:Yes; Central Line; Indication: Frequent blood [...] 24 Hour Ra nge BP: 96/57 (10/26 0700) Temp: 37.1 C (98.8 F) (10/26 0400) Pulse: 64 (10/26 0700) Respirations: 28 PER MINUTE (10/26 0700) SpO2: 100 % (10/26 0700) O2 Delivery: Endotracheal Tube (Oral) (10/26 0300) [...] procedures reviewed. Mica Javed APRN Date: 10/26/[phone] I spent 50 minutes managing the care [...] wean after that Recent emergent CABG at [facility] in [facility]. her leg wound infections may have been influenced by the fact that she lived in an extended [facility] in [place] and lives in one bedroom apartment with 6 people in [facility] and she has continued to smoke until this admission. Will d/c amiodarone after some further diuresis Will remain of plavix - I can see no reason why she reverted to this- it was not a current med at her CTS visit for her leg wounds in [place]. Her CTS surgery op report does not [...] sternal fixation- he will be travelling to [facility] today but will return tomorrow She [...] will be able to place PICC for half-way abx. Continue meropenem and vancomycin Fluconazole for thrush Oseltamivir for + influenza Persistent leukocytosis, low grade fever, but neurologic improvement. Endo: normoglycemic NEICU Attending Service And Repair Supervisor Attestation Etelvina Alonso is a 58 y.o. [...] Current Oral Intake: NPO Estimated Calorie Needs: 7881-7738 kcal(25-30 kcal/kg per present wt 52.8kg) Estimated [...] parenchymal air and surrounding edema. Transferred to [facility] for escalation of car e. Pt remains [...] If patient extubated, recommend diet textures per DISTRICT CUSTOMS DIRECTOR recs with even tual goal diet of [...] Frame: Throughout Stay Kelly Vitale, MS,RD, LD, [facility] *[phone] * Elenita Butler OT - 10/25/2018 1:49 PM CDT OCCUPATIONAL THERAPY ASSESSMENT NOTE Patient Name: Etelvina Alonso Room/Bed: [place] [address] Admitting Diagnosis: altered mental status Mobility Progressive Mobility Level: Active bed level mobility Level of Assistance: Assist X2 Assistive Device: None Time Tolerated: 0-10 minutes Activity Limited By: Patient request to stop Subjective Pertinent Dx per Physician: HTN, HLD, no nhealing leg wounds, CAD s/p CABG in in [place] who presented to an OSH on 10/16 [...] popping in chest shortly after CABG in [facility]. Vision Comment: makes eye contact to L [...] extubated and better able to communicate. See arjun e comments. UE PROM Overall BUE PROM [...] as able and indica yasmeen. Therapist: Louise Hennessy, PT Date: 10/25/2018 * Benny Sepulveda MD [...] wound infection as below -10/16 presented to [facility] with a few days of fever, cough -10/16/18: BC x 2 Strep Pneumo R- Clindamycin and erythromcyin S: ceftriaxone (MARCY 0.094), PCN (MARCY 0.064), levo, TMP/S, vanc. Rapid Flu Ag negative. MRSA nasal screen negative. 10/17/18: Sputum culture: Yeast and normal chesley -Rapid mental status deterioration, intubated -CTA head [...] regurgitation. Concern for bilateral LE wound infection, [facility] Bilateral vein harvest sites on lower extremities from CABG in [facility], 07/2018 Multiple cultures in [facility]. 09/07/18- Culture from R leg incision - [...] Pseudomonas that shows resis tance to meropenem. LACTATION CONSULTANT infection likely S pneumo, which is well covered by the cefepime and also has good LACTATION CONSULTANT penetration. Will tentatively plan for 2 weeks (from 10/23) of cefepime to treat both the LE wound infections and Strep pneumo b acteremia and suspected LACTATION CONSULTANT abscess. Tentative last day of cefepime would [...] for abx side effects Benny Sepulveda MD Investment Consultant Division of Infectious Diseases Interval History Etelvina Alonso is a 58 y.o. female with a PMH significant for CABG (07/2018) who p resented to [facility] in [facility] on 10/16/18 after noting worsening cough and sternal pain from recent sternotomy and non-healing LE graft sites. Transfe rred to [facility] on 10/19/18 for right temporal lobe intraparenchymal air and edema se en on CTA. Afebrile, intubated V/AC, 18, 40%, 5 Dexmedetomidine WBC down to 13.9, Cr 0.36 Cdiff PCR negative Unable to complete ROS due to pt mental status Antimicrobial Start date End date Cefepime 10/16/18-10/18/18, 10/23 active Ceftriaxone 10/18/18 10/20/18 Cefedinir 09/23/18 TRASH MAN, uncertain timeframe Doxycycline 100 mg PO BID 09/06/18 TRASH MAN, uncertain timeframe [id number] mg PO BID 08/23/18 TRASH MAN, uncertain timeframe Fluconazole 150 mg PO QD 08/17/18 TRASH MAN, uncertain timeframe Vancomycin 10/20/1810/24 Ampicillin 10/20/18 10/20/18 Fluconazole 10/20/18 active Oseltamivir 10/21/18 active Meropenem 10/20/1810/23 Bactrim 08/17/18 TRASH MAN, uncertain timeframe Estimated Creatinine Clearance: 75.2 mL/min [...] 20,000 Units/ sodium bicarbonate 650 mg(#) PRN (Human Service Coordinator from Rx), potassium chloride SR PRN OR [...] PLTCT [id number] Chemistry Recent Labs 10/23/1832410/24/18 0200 10/24/18 0956 10/25/18 0319 NA 145 [...] patient and providing recommendations regarding management including [facility] diagnostic testing and antimicrobial therapy. * [...] Yessica Burris MD [id number] * Beatriz Cardoza, SAMPLER TESTER - 10/25/2018 7:22 AM CDT Neuro Critical [...] raparenchymal air and surrounding edema. Transferred to [facility] for escalation of c are. Hospital and ICU course: 10/19: [facility] OSH [facility] Neuro/ENT: Altered mental status; Meningitis; right temporal [...] goal: < 160 MAP goal > 65 TRASH MAN metoprolol, amiodarone - TRASH MAN lisinopril on hold TRASH MAN atrovastatin and ASA - TRASH MAN plavix on hold Echo today: 35-40%, mitral [...] trach placement with ENT early next week TRASH MAN budesonide resumed Influenza virus positive - PaO2 [...] Potassium goal >4.0 mEq/L Prophylaxis Review: A)GI: [id number] B) Lines: Yes; Central Line; Indication: Frequent [...] Signs: 24 Hour Ra nge BP: 104/58 (10/26 1199) Temp: 37.2 C (98.9 F) (10/25 1200) Pulse: 69 (10/26 1199) Respirations: 30 PER [...] (118 lb 6.2 oz), SpO2 100 %. Vassar coma score: E: 4 - Opens eyes [...] consulted teams Beatriz Cardoza APRN Date: 10/25/[phone] * Olvin Vargas, PHARMD - 10/24/2018 11:47 AM CDT Pharmacy Vancomycin Note Subjective: Etelvina Alonso is a 58 y.o. female being treated for cerebritis. Objective: Current Vancomycin Orders Medication Dose Route Frequency vancomycin (VANCOCIN) 1,000 mg in dextrose 5% (D5W) 250 mL IVPB ([id number]) 1 g Intravenous Q12H* vancomycin, pharmacy to manage 1 each Service Per Pharmacy Start Date of Vancomycin therapy: 10/20/2018 White Blood Cells Date/Time Value Ref Range Status 10/24/2018 0200 16.3 (H) 4.5 - 11.0 K/UL Final 10/23/2018324 16.9 (H) 4.5 - 11.0 K/UL Final 10/22/2018314 16.3 (H) 4.5 - 11.0 K/UL [...] wound infection as below -10/16 presented to [facility] with a few days of [...] regurgitation. Concern for bilateral LE wound infection, [facility] Bilateral vein harvest sites on lower extremities from CABG in [facility] [place], 07/2018 Multiple cultures in [facility]. 09/07/18- Culture from R leg incision - [...] Pseudomonas that shows resis tance to meropenem. LACTATION CONSULTANT infection likely S pneumo, which is well covered by the cefepime and also has good LACTATION CONSULTANT penetration. Will tentatively plan for 2 weeks of cefepime to treat both the LE wound infections and Strep pneumo bacteremia an d suspected LACTATION CONSULTANT abscess. Tentative last day of cefepime would [...] Walker DO Infectious Diseases Fellow Pager # [phone] Discussed with attending on service, Dr. Sepulveda I have seen, personally evaluated, and discussed the patient's care with Dr. Maria mahmood, Infectious Diseases Fellow. I agree with the subjective notations, object chema findings and agree with the plan of care as documented in this note with anil ts made by me as necessary. Benny Sepulveda MD Investment Consultant Division of Infectious Diseases Interval History Etelvina Alonso is a 58 y.o. female with a PMH significant for CABG (07/2018) who p resented to [facility] in [facility] on 10/16/18 after noting worsening cough and sternal pain from recent sternotomy and non-healing LE graft sites. Transfe rred to [facility] on 10/19/18 for right temporal lobe [...] 10/23 active Ceftriaxone 10/18/18 10/20/18 Cefedinir 09/23/18 TRASH MAN, uncertain timeframe Doxycycline 100 mg PO BID 09/06/18 TRASH MAN, uncertain timeframe [id number] mg PO BID 08/23/18 TRASH MAN, uncertain timeframe Fluconazole 150 mg PO QD 08/17/18 TRASH MAN, uncertain timeframe Vancomycin 10/20/1810/24 Ampicillin 10/20/18 10/20/18 Fluconazole 10/20/18 active Oseltamivir 10/21/18 active Meropenem 10/20/1810/23 Bactrim 08/17/18 TRASH MAN, uncertain timeframe Estimated Creatinine Clearance: 73.9 mL/min [...] in dextrose 5% (D5W) 250 mL IVPB ([id number]) 1 g I ntravenous Q12H* Continuous Infusions: [...] 20,000 Units/ sodium bicarbonate 650 mg(#) PRN (Human Service Coordinator from Rx), potassium chloride SR PRN OR potassium chloride PRN, [DISCONTINUED] vancomycin IVPB Q8H* AND vancomycin, pharmacy to manage Per Pharmacy Physical Examination Vital Signs: Last Vital Signs: 24 Hour Ran ge BP: 133/82 (10/24 0700) Temp: 37 C (98.6 F) (10/24 0400) Pulse: 103 (10/24 0700) Respirations: 22 PER MINUTE (10/24 699) SpO2: [...] patient and providing recommendations regarding management including [facility] diagnostic testing and antimicrobial therapy. * [...] raparenchymal air and surrounding edema. Transferred to [facility] for escalation of c are. Hospital and [...] goal: < 160 MAP goal > 65 TRASH MAN metoprolol, amiodarone - TRASH MAN lisinopril on hold TRASH MAN atrovastatin and ASA - TRASH MAN plavix on hold Echo today: 35-40%, mitral [...] opacities, which may represent pneumonia and/or edema. TRASH MAN budesonide resumed Influenza virus positive Talk to [...] Potassium goal >4.0 mEq/L Prophylaxis Review: A)GI: [id number] B) Lines: Yes; Central Line; Indication: Frequent [...] a pneumothorax, had lung surgery in hospital [facility] [place] Restless leg syndrome Past Surgical History: Procedure Laterality Date HX CORONARY ARTERY BYPASS GRAFT HYSTERECTOMY OOPHORECTOMY ORTHOPEDIC SURGERY ligament repair in december 2017 VASCULAR SURGERY Family History Problem Relation Age of Onset Psoriasis Sister Heart Attack Sister maker 95% blocked s/p stenting Diabetes Sister Heart Disease Brother [place] in , with several stents Social History Social History Narrative Has 2 children and 2 grandchildren Son lives in [place] She is , to [place], for 30 years 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 Daily coma score: 7+T E: 2 [...] procedures reviewed. Pankaj Bunn MD Date: 10/24/[phone] Associated attestation - Farhad Perez MD - [...] CV: flail sternum Recent emergent CABG at [facility] in [facility]. 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 Afterward would sleep in a chair, SOB [...] sternal fixation- he will be travelling to [facility] tomorrow but will ret urn the and will be available by phone. [...] will be able to place PICC for half-way abx. Continue meropenem and vancomycin Fluconazole for thrush Oseltamivir for + influenza Persistent leukocytosis, low grade fever, but neurologic improvement. Endo: normoglycemic NEICU Attending Service And Repair Supervisor Attestation Etelvina Alonso is a 58 y.o. [...] time. Marina Gudino APRN Neurosurgery Call Pager [phone] * Juvenal Gottlieb MD - 10/23/2018 7:24 [...] Don discussed these findings with Raquel fam, SAMPLER TESTER, by telephone 10/20/2018 4:39 PM. Approved by [...] glands suggestive of sialoadenitis. By my electronic signatRavgen e, I attest that I have personally [...] or concerns. Juvenal Gottlieb MD Otolaryngology Resident, [phone] * Pankaj Bunn MD - 10/23/2018 7:21 [...] raparenchymal air and surrounding edema. Transferred to [facility] for escalation of c are. Hospital and [...] goal: < 160 MAP goal > 65 TRASH MAN metoprolol, amiodarone - TRASH MAN lisinopril on hold TRASH MAN atrovastatin and ASA - TRASH MAN plavix on hold Echo today: 35-40%, mitral valve borderline prolapse and regurg no vegetations Plan for JYOTSNA Respiratory: RUL Pneumonia Date of Intubation: 10/17 Reason: Airway protection V/AC: - CXR: Increased lung volumes with persistent patchy mixed alveolar and interstitial opacities, which may represent pneumonia and/or edema. TRASH MAN budesonide resumed Influenza virus positive Talk to [...] Potassium goal >4.0 mEq/L Prophylaxis Review: A)GI: [id number] B) Lines: Yes; Central Line; Indication: Frequent [...] pneumothorax, had lung surgery in hospital at [facility] Restless leg syndrome Past Surgical History: Procedure Laterality Date HX CORONARY ARTERY BYPASS GRAFT HYSTERECTOMY OOPHORECTOMY ORTHOPEDIC SURGERY ligament repair in december 2017 VASCULAR SURGERY Family History Problem Relation Age of Onset Psoriasis Sister Heart Attack Sister maker 95% blocked s/p stenting Diabetes Sister Heart Disease Brother [place] in 90s, with several stents Social History Social History Narrative Has 2 children and 2 grandchildren Son lives in [place] She is , to Leonidas, for 30 years 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 Pets: Cat Code Status: Full Code Decision [...] Vital Signs: 24 Hour Ra nge BP: 125/72 (10/23 699) Temp: 37.4 C [...] (116 lb 6.5 oz), SpO2 98 %. Vassar coma score: 7+T E: 2 - Opens [...] (Last 24 hours): Glucose: (!) 121 (10/23/18 0545) Lab Review: Pertinent labs reviewed Radiology and Other Diagnostic Procedures Review: Pertinent radiologic and diag nostic procedures reviewed. Pankaj Bunn MD Date: 10/23/[phone] Associated attestation - Farhad Perez MD - 10/23/2018 6:46 PM CDT NEICU Attending Service And Repair Supervisor Attestation Etelvina Alonso is a 58 y.o. [...] infection as below -10/16 presented to [facility] with a few days of fever, cough -10/16/18: BC x 2 Strep Pneumo R- Clindamycin and erythromcyin S: ceftriaxone (MARYC 0.094), PCN (MARCY 0.064), levo, TMP/S, vanc. [...] empyema. Concern for bilateral LE wound infection, [facility] Bilateral vein harvest sites on lower extremities from CABG in [place], 07/2018 Multiple cultures in [facility]. 09/07/18- Culture from R leg incision - [...] This is targeting LE infections, not the LACTATION CONSULTANT infection. LACTATION CONSULTANT infection likely S pneumo which is well [...] Shan Walker, Infectious Diseases Fellow Pager # [phone] Discussed with attending on service, Dr. Sepulveda I have seen, personally evaluated, and discussed the patient's care with Dr. Maria mahmood, Infectious Diseases Fellow. I agree with the subjective notations, object chema findings and agree with the plan of care as documented in this note with anil ts made by me as necessary. Benny Sepulveda MD Investment Consultant Division of Infectious Diseases Interval History Etelvina Alonso is a 58 y.o. female with a PMH significant for CABG (07/2018) who p resented to [facility] in [facility] on 10/16/18 after noting worsening cough and sternal pain from recent sternotomy and non-healing LE graft sites. Transfe rred to [facility] on 10/19/18 for right temporal lobe intraparenchymal air and edema se en on CTA. Seen this AM intubated and sedated. Leukocytosis overall unchanged. Afebrile overnight (Tmax 100.1) WBC 16.9 Cr 0.3 I/O: 4665/2275 (+2390) Unable to complete ROS due to pt mental status Antimicrobial Start date End date Cefepime 10/16/18-10/18/18, 10/23 active Ceftriaxone 10/18/18 10/20/18 Cefedinir 09/23/18 TRASH MAN, uncertain timeframe Doxycycline 100 mg PO BID 09/06/18 TRASH MAN, uncertain timeframe [id number] mg PO BID 08/23/18 TRASH MAN, uncertain timeframe Fluconazole 150 mg PO QD 08/17/18 TRASH MAN, uncertain timeframe Vancomycin 10/20/18 active Ampicillin 10/20/18 10/20/18 Fluconazole 10/20/18 active Oseltamivir 10/21/18 active Meropenem 10/20/1810/23 Bactrim 08/17/18 TRASH MAN, uncertain timeframe Estimated Creatinine Clearance: 73.9 mL/min [...] in dextrose 5% (D5W) 250 mL IVPB ([id number]) 1 g I ntravenous Q12H* Continuous Infusions: [...] 20,000 Units/ sodium bicarbonate 650 mg(#) PRN (Human Service Coordinator from Rx), potassium chloride SR PRN OR [...] 312 Chemistry Recent Labs 10/20/18 1557 10/21/18 03110/21/18 1335 10/22/18 0315 10/23/18 0325 NA -- [...] in dextrose 5% (D5W) 250 mL IVPB ([id number]) 1 g Intravenous Q12H* vancomycin, pharmacy to manage 1 each Service Per Pharmacy Start Date of Vancomycin therapy: 10/20/2018 White Blood Cells Date/Time Value Ref Range Status 10/22/2018314 16.3 (H) 4.5 - 11.0 K/UL Final 10/21/2018309 18.6 (H) 4.5 - 11.0 K/UL Final 10/20/2018337 14.2 (H) 4.5 - 11.0 K/UL Final 10/19/20186 13.0 (H) 4.5 - 11.0 K/UL Final Creatinine Date/Time Value Ref Range Status 10/22/2018314 0.47 0.4 - 1.00 MG/DL Final 10/21/2018309 0.48 0.4 - 1.00 MG/DL Final 10/20/2018 [...] Elenita Butler, OT Date: 10/22/2018 * Marleen Ponce, RN - 10/22/2018 12:37 PM CDT IVT [...] wound infection as below -10/16 presented to [facility] with a few days of [...] empyema. Concern for bilateral LE wound infection, [facility] Bilateral vein harvest sites on lower extremities from CABG in [facility] [place], 07/2018 Multiple cultures in [facility]. 09/07/18- Culture from R leg incision - [...] This is targeting LE infections, not the LACTATION CONSULTANT infection. LACTATION CONSULTANT infection likely S pneumo which is well [...] by me as necessary. Benny Sepulveda MD Investment Consultant Division of Infectious Diseases Interval History Etelvina Alonso is a 58 y.o. female with a PMH significant for CABG (07/2018) who p resented to [facility] in [facility] on 10/16/18 after noting worsening cough and sternal pain from recent sternotomy and non-healing LE graft sites. Transfe rred to [facility] on 10/19/18 for right temporal lobe intraparenchymal air and edema se en on CTA. Remains intubated, sedated. Leukocytosis improved. Afebrile overnight WBC 16.3 Cr 0.47 Unable to complete ROS due to pt mental status Antimicrobial Start date End date Cefepime 300 mg PO BID 10/16/18 10/18/18 Ceftriaxone 10/18/18 10/20/18 Cefedinir 09/23/18 TRASH MAN, uncertain timeframe Doxycycline 100 mg PO BID 09/06/18 TRASH MAN, uncertain timeframe [id number] mg PO BID 08/23/18 TRASH MAN, uncertain timeframe Fluconazole 150 mg PO QD 08/17/18 TRASH MAN, uncertain timeframe Vancomycin 10/20/18 active Ampicillin 10/20/18 10/20/18 Fluconazole 10/20/18 active Oseltamivir 10/21/18 active Meropenem 10/20/18 active Bactrim 08/17/18 TRASH MAN, uncertain timeframe Estimated Creatinine Clearance: 73.9 mL/min [...] in dextrose 5% (D5W) 250 mL IVPB ([id number]) 1 g I ntravenous Q12H* Continuous Infusions: [...] 20,000 Units/ sodium bicarbonate 650 mg(#) PRN (Human Service Coordinator from Rx), potassium chloride SR PRN OR [...] raparenchymal air and surrounding edema. Transferred to [facility] for escalation of c are. Hospital and ICU course: 10/19: Transfer[facility] OSH [facility] Neuro: Altered mental status: encephalopathic vs sepsis; [...] goal: < 160 MAP goal > 65 TRASH MAN metoprolol, amiodarone - TRASH MAN lisinopril on hold TRASH MAN atrovastatin and ASA - TRASH MAN plavix on hold Echo today: 35-40%, mitral valve borderline prolapse and regurg no vegetations Respiratory: RUL Pneumonia Date of Intubation: 10/17 Reason: Airway protection V/AC: - CXR: Increased lung volumes with persistent patchy mixed alveolar and interstitial opacities, which may represent pneumonia and/or edema. TRASH MAN budesonide resumed Influenza - PaO2 goal >100, [...] Potassium goal >4.0 mEq/L Prophylaxis Review: A)GI: [id number] B) Lines: Yes; Central Line; Indication: Frequent [...] pneumothorax, had lung surgery in hospital [place] Restless leg syndrome Past Surgical History: Procedure Laterality Date HX CORONARY ARTERY BYPASS GRAFT HYSTERECTOMY OOPHORECTOMY ORTHOPEDIC SURGERY ligament repair in december 2017 VASCULAR SURGERY Family History Problem Relation Age of Onset Psoriasis Sister Heart Attack Sister maker 95% blocked s/p stenting Diabetes Sister Heart Disease Brother [place] in 90s, with several stents Social History Social History Narrative Has 2 children and 2 grandchildren Son lives in [place] She is , to Leon[place], for 30 years 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 Vassar coma score: 7+T E: 2 - Opens [...] Attempts to kick in direction of radiology physician assistant. Sensory: appears intact Coordination: Deferred DTRs: 2/4 [...] procedures reviewed. Pankaj Bunn MD Date: 10/22/[phone] Associated attestation - Farhad Perez MD - 10/23/2018 12:05 AM CDT NEICU Attending Service And Repair Supervisor Attestation Etelvina Alonso is a 58 y.o. [...] gnosis. Farhad Perez MD Date: 10/23/2018 * Juvenal Gottlieb MD - 10/22/2018 7:03 AM CDT CLEMENTINE/HNS PROGRESS NOTE Today's Date: 10/22/2018 Admission Date: 10/19/2018 LOS: 3 days Subjective No acute events overnight. Patient resting comfortably in bed. Remains intubated and sedated. Objective Vital Signs: Last Filed Vital Signs: 24 Ramiro r Range BP: 128/81 (10/22 0600) Temp: 37.3 C (99.2 F) (10/22 0400) Pulse: 123 (10/22 699) Respirations: 48 PER [...] PMHx including CAD s/p CABG i n Sarah in July 2018 with a post-op course [...] possible infection, so she was transferred to [facility] for further care. Of note, she [...] to hypovolemia - We have her on / NS @ 50 mL/hr which we will [...] raparenchymal air and surrounding edema. Transferred to [facility] for escalation of c are. Hospital and [...] goal: < 160 MAP goal > 65 TRASH MAN metoprolol, amiodarone resumed - TRASH MAN lisinopril on hold TRASH MAN atrovastatin and ASA resumed - TRASH MAN plavix on hold Echo today: 35-40%, mitral valve borderline prolapse and regurg no vegetations Respiratory: RUL Pneumonia Date of Intubation: 10/17 Reason: Airway protection V/AV: - CXR: Increased lung volumes with persistent patchy mixed alveolar and interstitial opacities, which may represent pneumonia and/or edema. TRASH MAN budesonide resumed - PaO2 goal >100, Spo2 [...] Potassium goal >4.0 mEq/L Prophylaxis Review: A)GI: [id number] B) Lines: Yes; Central Line; Indication: Frequent [...] atrial fibrillation (HCC) Pneumothorax tripped over a [employer] toy, had a pneumothorax, had lung surgery in hospital [facility] Restless leg syndrome Past Surgical History: Procedure Laterality Date HX CORONARY ARTERY BYPASS GRAFT HYSTERECTOMY OOPHORECTOMY ORTHOPEDIC SURGERY ligament repair in december 2017 VASCULAR SURGERY Family History Problem Relation Age of Onset Psoriasis Sister Heart Attack Sister maker 95% blocked s/p stenting Diabetes Sister Heart Disease Brother [place] in , with several stents Social History Social History Narrative Has 2 children and 2 grandchildren Son lives in [place] She is , to Leonidas, for 30 years 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, 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[place], 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 Code Status: Full Code Decision [...] (10/21 699) Height: 162.6 cm (64") (10/20 1009) Weight: 52.8 kg (116 lb 6.5 oz) (10/21 030) BP: (97-157)/(47-94) Temp: [37.2 C (98.9 F)-38.3 C (100.9 F)] Pulse: [93-136] Respirations: [0 PER MINUTE-40 PER MINUTE] SpO2: [97 %-100 %] O2 Delivery: Endotracheal Tube (Oral) Intensity Pain Scale (Self Report): (not recorded) Vitals: 10/20/1839910/20/18100910/21/18300 Weight: 54.1 kg (119 lb 4.3 oz) [...] Intake/Output Summary (Last 24 hours) at 10/21/2018 07 Last data filed at 10/21/2018 0700 Gross [...] Attempts to kick in direction of radiology physician assistant. Sensory: appears intact Coordination: Deferred DTRs: 2/4 [...] procedures reviewed. Pankaj Bunn MD Date: 10/21/[phone] * Karen Duval RN - 10/21/2018 7:10 AM CDT I have reviewed the notes, assessment, and/or procedures performed by Saba crook and concur with her/his documentation unless otherwise noted. * Russ Lopez RN - 10/20/2018 3:00 PM MEMBERSHIP ASSISTANT Significant motion during scanning, 25 mcg of Fentanyl administered. Continuing with imaging, ERSHIP ASSISTANT * Russ Lopez RN - 10/20/2018 2:33 PM MEMBERSHIP ASSISTANT significant motion during imaging, Propofol infusion rate increased with minimal effect, Fentanyl 50 mcg, administered as per PRN orders, ERSHIP ASSISTANT * Sudha Quan, PT - 10/20/2018 1:36 PM MEMBERSHIP ASSISTANT PHYSICAL THERAPY NOTE Physical therapy orders received and appreciated. Chart reviewed and discussed p atient status with bedside RN. Per RN, patient currently intubated and sedated; not appropriate for purposeful PT evaluation at this time. PT will follow up as able and provide evaluation/treatment as indicated. Therapist: Sudha Quan PT, DPT Date: 10/20/2018 ERSHIP ASSISTANT * Aline Sneed, OT - 10/20/2018 1:36 PM MEMBERSHIP ASSISTANT OCCUPATIONAL THERAPY NOTE OT orders received and appreciated. Chart reviewed and discussed status with RN. Per RN, patient currently intubated and sedated; not appropriate for purposeful OT evaluation at this time. OT will follow up as indicated to provide evaluatio n/treatment. Therapist: Aline Sneed, DALILAR/L [id number] Date: 10/20/2018 ERSHIP ASSISTANT * Russ Lopez, RN - 10/20/2018 1:35 PM MEMBERSHIP ASSISTANT 1300 - Assumed care, travelled with pt to CT/MRI, vented, sedated, monitored, re strained, accompanied by this nurse, Howard TOLLIVER, tolerated well. 1335 - CT completed, transferred to MRI table, no adverse events, monitoring in place, Imaging in progress. ERSHIP ASSISTANT * Elsy Luke, PHARMD - 10/20/2018 9:51 AM MEMBERSHIP ASSISTANT Pharmacy Vancomycin Note Subjective: Etelvina Alonso is [...] monitor and adjust therapy as needed. Elsy Luke PHARMD 10/20/2018 ERSHIP ASSISTANT * Magali Patel, RN - 10/20/2018 8:00 AM MEMBERSHIP ASSISTANT MD Sepideh, with [facility] notified of pt's Left pupil>right pupil at 0800 assessment. MD at bedside to assess. Orders to continue to monitor and assess. ERSHIP ASSISTANT * Karen Duval RN - 10/20/2018 6:36 AM MEMBERSHIP ASSISTANT I have reviewed the notes, assessment, and/or procedures performed by Saba crook and concur with her/his documentation unless otherwise noted. ERSHIP ASSISTANT * Pankaj Bunn MD - 10/20/2018 6:23 AM MEMBERSHIP ASSISTANT Neuro Critical Care Progress Etelvina Alonso Admission [...] raparenchymal air and surrounding edema. Transferred to [facility] for escalation of c are. Hospital and ICU course: 10/19: [facility] Neuro: Altered mental status: encephalopathic vs sepsis; Small R Temporal lobe i ntraparenchymal air CT head 10/20: Concerning for possible cerebritis Skull base MRI brain CT temporal lube Q1 neurochecks PT/OT Sedation/Pain Management: Propofol PRN fentanyl, oxycodone and tylenol available - Assess for delirium daily Cardiac: HTN; HLD; CAD s/p CABG in 07/2018; Paroxysmal AF SBP goal: < 160 MAP goal > 65 TRASH MAN metoprolol, amiodarone resumed - TRASH MAN lisinopril on hold TRASH MAN atrovastatin and ASA resumed - TRASH MAN plavix on hold Echo today Respiratory: RUL Pneumonia Date of Intubation: 10/17 Reason: Airway protection V/AV: - CXR: Increased lung volumes with persistent patchy mixed alveolar and interstitial opacities, which may represent pneumonia and/or edema. TRASH MAN budesonide resumed - PaO2 goal >100, Spo2 [...] Potassium goal >4.0 mEq/L Prophylaxis Review: A)GI: [id number] B) Lines: Yes; Central Line; Indication: Frequent [...] Vital Signs: 24 Hour Ra nge BP: 131/67 (10/20 599) Temp: 37.8 C [...] (119 lb 4.3 oz), SpO2 98 %. Vassar coma score: 7+T E: 2 - Opens [...] Attempts to kick in direction of radiology physician assistant. Sensory: appears intact Coordination: Deferred DTRs: 2/4 [...] procedures reviewed. Pankaj Bunn MD Date: 10/20/[phone] ERSHIP ASSISTANT Associated attestation - Kelton Zelaya MD - 10/20/2018 9:58 PM MEMBERSHIP ASSISTANT I have seen, personally fully evaluated, and [...] PMHx including CAD s/p CABG i n [place] in July 2018 with a post-op course [...] possible infection, so she was transferred to [facility] for further care. Of note, she [...] * Saba Buck - 10/20/2018 2:55 AM MEMBERSHIP ASSISTANT Patient arrived to room #5126 via bed [...] Doc Flowsheet for additional wound details. 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 Assessment: Corpak in place. Plan: [...] with any questions or concerns. Radha Arango APRN,ANP- Pgr [phone] IR Team Pager [phone] (After-hours and Weekends) Procedure Date: 11/01/2018 Procedure: GJ tube placement. IR Pre Procedure Notes: Consent in chart. Chief Complaint: Dysphagia. Previous Anesthetic/Sedation History: Reviewed. History of present illness: Etelvina Alonso is a 58 y.o. female patient with PMH influenza, pneumonia, and brai n abscess who is now in need of intermediate PO access. Review of Systems Constitutional: negative [...] 20,000 Units/ sodium bicarbonate 650 mg(#) PRN (Human Service Coordinator from Rx), potassium chloride SR PRN OR [...] 4.5 MG/DL Radiology: Reviewed. * Lorena Rockwell, MSN,SAMPLER TESTER - 10/19/2018 8:07 PM MEMBERSHIP ASSISTANT Neuro Critical Care History and Physical Etelvina [...] arenchymal air and surrounding edema. Transferred to [facility] for escalation of care . Hospital and ICU course: 10/19: Transfer[facility] OSH to [facility] Neuro: Altered mental status: encephalopathic vs sepsis; Small R Temporal lobe i ntraparenchymal air CT head at 400 Q1 neurochecks PT/OT - DISTRICT CUSTOMS DIRECTOR once extubated and more appropriate - Neuro-ICU [...] goal: < 160 MAP goal > 65 TRASH MAN metoprolol, amiodarone resumed - TRASH MAN lisinopril on hold TRASH MAN atrovastatin and asa resumed - TRASH MAN plavix on hold Echo pending to r/o infectious source ECG with sinus tachycardia Respiratory: RUL Pneumonia Date of Intubation: 10/17 Reason: Airway protection MMV: - CXR: - ABG: TRASH MAN budesonide resumed - PaO2 goal >100, Spo2 [...] Potassium goal >4.0 mEq/L Prophylaxis Review: A)GI: [id number] B) Lines: Yes; Central Line; Indication: Frequent [...] felt it necessary to facilitate transfer to [facility] for escalation of care. Past Medical [...] output data in the 24 hours ending 10/19/183 Physical Exam: There were no vitals taken [...] Attempts to kick in direction of radiology physician assistant. Sensory: appears intact Coordination: Deferred DTRs: 2/4 [...] of care with consulted teams Lorena Rockwell, MSN,SAMPLER TESTER Date: 10/19/[phone] ERSHIP ASSISTANT documented in this encounter Consult Notes * [...] 0800 No Sacrum Stage 2 (Active) 10/24/18 08 Pressure Injury Present On [...] Moist;Red 10/25/2018 12:30 PM Surrounding Skin Assessment Intact;Snyder 10/25/2018 12:30 PM Wound Status (Wound Team [...] to area BID and PRN soiling per staff development coordinator. Continue Q2hr turning schedule using foam wedge for suppor t. Apply offloading boots to bilateral heels for additional pressure ulcer preve ntion. Will continue to follow. Olimpia Louise RN, BSN, CMSRN, CWON Wound Ostomy Nursing Consult Service Office: [phone] Pager: [phone] After Hours Wound/Ostomy Team Pager: [phone] * Leah Pak PA-C - 10/25/2018 9:47 AM CDT Associated Order(s): CONSULT CARDIOTHORACIC SURGERY PHYSICIAN CTS CONSULT Date of Service: 10/25/2018 Requesting Physician: Lorena Rockwell MD Consulting Physician: Miguel Angel Odonnell MD Consult Performed By: Leah Pak PA-C HPI: Etelvina Alonso is a 58 y.o. female with history of HTN, HLD, no nhealing leg wound s, CAD s/p CABG in 07/2018 in [place] who presented to an OSH on 10/16 [...] and will further evaluate. Leah Pak PA-C [phone] Past Medical History: Diagnosis Date Arthritis Asthma CAD (coronary artery disease) COPD (chronic obstructive pulmonary disease) (HCC) Depression Disruption or dehiscence of closure of sternum or sternotomy Edentulous 2016 Poor dentition Endometriosis Hyperlipidemia Hypertension, essential Non-healing wound of lower extremity Paroxysmal atrial fibrillation (HCC) Pneumothorax tripped over a kraig toy, had a pneumothorax, had lung surgery in hospital at [facility] Restless leg syndrome Past Surgical History: [...] s/p stenting Diabetes Sister Heart Disease Brother [place] in , with several stents Social History Socioeconomic History [...] children and 2 grandchildren Son lives in [place] She is , to [place], for 30 years 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 Physical [...] failed ventilator weaning since arriving at our [facility]. Prior to admission she was a [...] Right Leg Surgical Incision (Ac tive) 10/19/18 2330 Leg Wound Orientation: Right Wound Type: Surgical Incision Wound Type:: Wound Description (Comments): Dehiscence from prior surgery Wound Image 10/22/2018 11:00 AM Agree With My Assessment? Yes 10/22/2018 12:00 PM Wound Base Assessment Dry;Eschar 10/22/2018 11:00 AM Surrounding Skin Assessment Snyder 10/22/2018 11:00 AM Wound Site Closure Open [...] Pressure Injuries) 10/19/18 2330 Left;Upper Leg Surgical Incisio n (Active) 10/19/18 2330 Leg Wound Orientation: Left;Upper Wound Type: Surgical Incision Wound Type:: Wound Description (Comments): Dehiscence from prior surgery Wound Image 10/22/2018 11:00 AM Agree With My Assessment? Yes 10/22/2018 12:00 PM Wound Base Assessment Dry;Eschar;Mak;Snyder 10/22/2018 11:00 AM Surrounding Skin Assessment Intact [...] CWON Wound Ostomy Nursing Consult Service Office: [phone] Pager: [phone] After Hours Wound/Ostomy Team Pager: [phone] * Adrianne Valenzuela - 10/21/2018 10:29 AM CDT Associated Order(s): CONSULT DIETITIAN CLINICAL NUTRITION Clinical Nutrition Assessment Summary NAME:Etelvina Alonso :1960 AG E: 58 y.o. ADMISSION DATE: 10/19/2018 DAYS ADMITTED: LOS: 2 days Nutrition Assessment of Patient: BMI Categories Adult: Acceptable: 18.5-24.9 Malnutrition Assessment: (pending subjective information) Current Oral Intake: NPO Estimated Calorie Needs: 0959-7467 kcal(25-30 kcal/kg per present wt 52.8kg) Estimated [...] intraparenchymal air and surrounding edema. Transferred to [facility] for escalation of care. Pt remains [...] If patient extubated, recommend diet textures per DISTRICT CUSTOMS DIRECTOR recs with eventual goal diet of Cardiac [...] Within [address], LD *[phone] * Juvenal Gottlieb MD - 10/20/2018 7:01 PM MEMBERSHIP ASSISTANT Associated Order(s): CONSULT OTOLARYNGOLOGY (ENT) PHYSICIAN Otolaryngology [...] additional questions. Juvenal Gottlieb MD Otolaryngology Resident, [id number] Reason for consult: Concern for otomastoiditis on imaging History of Present Illness: Etelvina Alonso is a 58 y.o. female with complex medica l history which began and 2017 after a CABG which was performed in [facility]. The patient presented to outside hospital on October 16 in [facility] due to worsening sternal pain, cough and nonhealing wounds from bilateral vein harvesting site. She is initially admitted to the hospital and her pulmona ry status and mental status worsened requiring a transfer to the ICU with intuba tion. CTA head was performed on October 19 and demonstrated pneumocephalus. The p atflor was then transferred to [facility] for escalation of care. 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 Tx for multiple medicla issu es. COncern on imaging for possible tegmen dehgiscence and left cerebral empyema ?NS doubts and cerebritis on R and fluid R>L ME and sphenoid encephalocele. Also active influenza and poor healing wounds s/p CABG in [place]. Scans reviewed Alert, NAD Head: Normocephalic/atraumatic intubated [...] palpable thyroid masses, no cutaneous webster es sql report developer: Could not test due to sedation Probable [...] Benny Sepulveda MD - 10/20/2018 9:48 AM MEMBERSHIP ASSISTANT Associated Order(s): CONSULT INFECTIOUS DISEASES PHYSICIAN Infectious [...] wound infection as below -10/16 presented to [facility] with a few days of [...] pending Concern for bilateral LE wound infection, [facility] Bilateral vein harvest sites on lower extremities from CABG in [place], 07/2018 Multiple cultures in [facility]. 09/07/18- Culture from R leg incision - [...] If not would defer CTS consult to the neuromedical center team. -Would obtain CT of bilateral LE's [...] from the original version. Benny Sepulveda MD Investment Consultant Division of Infectious Diseases D/W OLIVER attending, Dr. Zelaya History of Present Illness Etelvina Alonso is a 58 y.o. Female PMH significant for CABG [facility] i n 07/2018 who presented to an [facility] after noting worsening coug h and stenral [...] 5 days prior to admission Cultures from [facility]: Blood culture 10/16 x2: Strep Pneumo R- [...] leg pseudomonas R-Aztreonam, sensitive PCP: Akbar fonseca [phone] Sister demetra Antimicrobial Start date End date Cefepime 300 mg PO BID 10/16/18 10/18/18 Ceftriaxone 10/18/18 10/20/18 Cefedinir 09/23/18 TRASH MAN, uncertain timeframe Doxycycline 100 mg PO BID 09/06/18 TRASH MAN, uncertain timeframe Lfputrcrndt969 mg PO BID 08/23/18 TRASH MAN, uncertain timeframe Fluconazole 150 mg PO QD 08/17/18 TRASH MAN, uncertain timeframe Vancomycin 10/20/18 active Ampicillin 10/20/18 10/20/18 Fluconazole 10/20/18 active Meropenem 10/20/18 active Bactrim 08/17/18 TRASH MAN, uncertain timeframe Estimated Creatinine Clearance: 75.6 mL/min [...] atrial fibrillation (HCC) Pneumothorax tripped over a [employer] toy, had a pneumothorax, had lung surgery in hospital at [facility] Restless leg syndrome Past Surgical History [...] children and 2 grandchildren Son lives in [place] She is , to Leonidas, for 30 years 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 I spent 50 minutes personally reviewing the patient's vital signs, critical care flowsheet s, labs, imaging studies, and clinical status, as well as examining the patient and providing recommendations regarding management including further diagnostic testing and antimicrobial therapy. ERSHIP ASSISTANT documented in this encounter ED Notes * Sydni Corcoran RN - 11/03/2018 2:17 PM CDT Report given to LT[facility] and [facility] transport. All pt belongings in the care of . documented in this encounter Miscellaneous Notes * Case Mgmt DC Plan - Misa Herman - 11/03/2018 12:26 PM CDT GUINEA PIG BREEDER NOTE Transfer packet delivered to pt's chart unit per the request of Shelby Espitia [facility] . Misa Herman CMA * Case Mgmt DC Plan - Shelby Espitia - 11/03/2018 10:21 AM CDT Case Management Progress Note NAME:Etelvina Alonso :[birth year] AGE: 58 y.o. ADMISSION DATE: 10/19/2018 DAYS ADMITTED: LOS: 15 days Todays Date: 11/03/2018 Plan D/C today to [facility] via [facility] EMS at 1400 Interventions ? Support Support: [...] for d/c. S Berna spoke with Jessica [phone] in admissions with [facility] who v erified facility is able to accept pt today. Jessica would like for [facility] to transp ort pt from [facility] at 1400. SHORTY spoke with pt's spouse Leonidas [phone] who verified he is aware of d/c plan for today and does not have any questions regarding d/c plan. SHORTY spoke with [facility] EMS and arranged Vent transport with heart monitoring ( per MD d/t concern for tachycardia) for 1400. SHORTY made RN and team aware of final d/c plan. SW tasked GUINEA PIG BREEDER to create transfer pa cket. SW completed PCS form. SW to fax d/c orders to [phone] once completed . RN please call report to [phone]. Durable Medical Equipment No service has been selected for the patient. Destination - Selection Complete Service Provider Request Status Selected Services Address Phone Number Fax Numb er [facility] Selected [facility] [address] [place] [address] [phone] [facility] No service has been [...] or Referral ? Discharge Planning Discharge Planning: [facility] Covering Sw discussed pt with team. Pt is on a vent, however is able to dischar ge to [facility] on vent. [facility] has received insurance authorization and will be able to accept pt at 2pm on 11/03/18. Sw notified team and spouse of anticipated discharge date/time. Sw spoke with a ttending. Attending would like to monitor pt overnight [...] er [facility] Selected [facility] Acute [facility] [address], [facility] [address] Home Care No service has been selected [...] Post-Procedure Condition: unchanged Randall Broussard MD Pager [phone] * Case Mgmt DC Plan - Ellen Frederick - 11/01/2018 10:22 AM CDT Case Management Progress Note NAME:Etelvina Alonso :[birth year] AGE: 58 y.o. ADMISSION DATE: 10/19/2018 DAYS ADMITTED: LOS: 13 days Todays Date: 11/01/2018 Plan Anticipate d/c [facility] tomorrow vs Monday pending pt stability and in surance auth. Interventions SHORTY reviewed EMR and met with Neuro team. Anticipate Peg today. Anticipate trach downsize tomorrow. ? Support Support: Pt/Family Updates re:POC or DC Plan ? Info or Referral ? Discharge Planning Discharge Planning: [facility] SHORTY sent updated clinicals including copy of pt's insurance cards to [facility] . SHORTY spoke with Mila at [facility] to update. Mila educated that they [...] for the patient. Ellen Frederick LMSW Phone: [phone] Pager: [phone] * Case Mgmt DC Plan - Ellen Frederick - 10/31/2018 8:40 AM CDT Case Management Progress Note NAME:Etelvina Alonso :[birth year] AGE: 58 y.o. ADMISSION DATE: 10/19/2018 DAYS ADMITTED: LOS: 12 days Todays Date: 10/31/2018 Plan Anticipate d/c to [facility] on Monday pending pt stability, facility acce ptance, and insurance auth. Interventions SHORTY reviewed EMR and met with Neuro team. Anticipate trach downsize on Monday. EN T following. ? Support Support: Pt/Family Updates re:POC or DC Plan ? Info or Referral ? [facility] SHORTY spoke with Mila at [facility] to check status of referral. Mila educlenore yasmeen that they have clinically accepted for admission and will likely submit for insurance auth tomorrow to aide in tentative admission on Monday. Update 4:00pm: SHORTY spoke with Mila at [facility] and they will need a copy of pt's insurance card. SHORTY spoke with pt's Nolan ([phone]) to request copy of pt's insura nce card. Nolan agreeable to leaving copy of pt's insurance card at bedside. T lyndsey also aware and in agreement with continued [...] for the patient. Ellen Frederick LMSW Phone: [phone] Pager: [phone] * Anesthesia Post Op Day 1 - [...] 20,000 Units/ sodium bicarbonate 650 mg(#) PRN (Human Service Coordinator from Rx), potassium chloride SR PRN OR [...] sleepy but arousable * Case Mgmt DC Jyothi - Ellen Frederick - 10/30/2018 8:48 AM CDT Case Management Progress Note NAME:Etelvina Alonso :[birth year] AGE: 58 y.o. ADMISSION DATE: 10/19/2018 DAYS ADMITTED: LOS: 11 days Todays Date: 10/30/2018 Plan Anticipate d/c to [facility] on Monday pending pt stability and insurance [facility]. Interventions SW reviewed EMR and met with Neuro team. Anticipate trach downsize on Monday. EN T following. ? Support Support: Pt/Family Updates re:POC or DC Plan ? Info or Referral ? Discharge Planning Discharge Planning: [facility] SHORTY left message for Mila at [facility] to update. SHORTY sent updated clinicals to [facility]. ? Medication Needs ? Financial ? Legal [...] for the patient. Ellen Frederick LMSW Phone: [phone] Pager: [phone] * Procedures (Immed Post or Bedside) - [...] ICU - stable Yessica Burris MD Pager [phone] * Operative Report (Direct Entry) - Duy [...] fascia with a Kitner. We then asked e Anesthesia team to increase FiO2 to [...] to the recovery room in stable condition. IDuy was present and performed the procedure Estimated Blood Loss: 5 ml Specimen(s) Removed/Disposition: ID Type Source Tests Collected by Time Destination 1 : MASTOID CONTENTS Tissue Ear SURGICAL PATHOLOGY Duy Burch M D 10/29/2018 1525 Yessica Burris MD Pager [phone] * Case Mgmt DC Jyothi - Mateusz Jaymie - 10/29/2018 1:53 PM CDT Case Management [...] or Referral ? Discharge Planning Discharge Planning: [facility] SW assisting primary SW, Ellen Frederick, with ongoing d/c planning. SHORTY revie wed EMR for poc update and discussed with primary SW re: plan for OR today for t yana, anticipate d/c to [facility] when medically stable, [...] with a nticipated Ltach placement. 14:15 -- SW notified by RN that spouse has returned to bedside. SHORTY met with spouse, explained SW role, and discussed anticipated Ltach placement once pt was medically stable. SHORTY provided pt's spouse with an Ltach list for review. Eliezer adams reports he and pt have been staying with family in [place], [place], but they do n't plan to remain there intermediate. Spouse reports he started a new job in [place], [place], and indicates he will have to report back to his job site in [facility] in the next day or two. [...] selected for the patient. Katelynn Child LMSW, [facility] [phone] * Case Mgmt DC Plan - Natalia Spence - 10/26/2018 1:01 PM CDT Case Management Progress Note NAME:Etelvina Alonso :[birth year] AGE: 58 y.o. ADMISSION DATE: 10/19/2018 DAYS ADMITTED: LOS: 7 days Todays Date: 10/26/2018 Plan DCP Ongoing: SHORTY anticipates pt to [facility] pending family agreement, insurance a [facility], and medical stability. Interventions ? Support Support: Pt/Family Updates re:POC or DC Plan Assisting SHORTY reviewed EMR, team gained consent form pt's spouse:Leonidas for Tympa nomastoidectomy Monday. Pt currently on Q8 IV Cefepime and IV Fluconazole Q77-panneoxifa DC to [facility]ACH mid next week. ? Info or Referral ? Discharge Planning Discharge Planning: [facility] Acute [facility] No contact number provided for pt's spouse in demographics. SHORTY contacted pt's emergency contact, sister: demetra [phone] and left requesting callback to discuss DCP. SHORTY also contacted pt's home phone number:[phone]-message indicated phone number is pt's cell phone-SW did not leave . UPDATE:[id number] SHORTY received callback from Demetra who confirms pt's spouse is at bedside and chelsey strickland be available at bedside this weekend to participate in POC. SHORTY f/u at pt's bedside 2x this afternoon-spouse [...] been selected for the patient. -Hortensia Spence, [place] *[phone] * Case Mgmt DC Plan - Barbara Mckeon - 10/26/2018 8:47 AM CDT Request for Benefits Received request from [facility] Ellen Frederick to check LTACH benefits for [...] month plan, she is currently good throu the month of October. Barbara Mckeon Chef Passenger Vessel For further assistance please contact [facility] Ellen Frederick *[phone] * Procedures (Immed Post or Bedside) - [...] unable to perform assessment and pt sister/Demetra kayli polanco call to answer questions. Demetra states that the patient, her spouse/Leonidas, their daughter Ibeth Alonzo a nd her two children Clayton Alonzo, a 5 yo son, and daughter George Alonzo a 15 mo old daughter all live in [place] ONE bedroom HUD housing apartment (si nce [...] D/c dispo/planning ongoing Patient Address/Phone [address] [place] [phone] (home) Emergency Contact Extended Emergency Contact Information Primary Emergency Contact: Demetra Pimentel Mobile Relation: Sister Stator Tester needed? No Healthcare Directive Transportation Does the [...] ? PCP Akbar Fonseca, , ? Pharmacy [facility] [address] [place] [phone] ? Durable Medical Equipment Durable Medical Equipment [...] ? Outpatient Therapy PT: No OT: No DISTRICT CUSTOMS DIRECTOR: No ? Care Home Facility/Usp SNF: No NH: No ? Inpatient Rehab IPR: No ? Long-Term Acute Care Hospital LTACH: No ? Acute Hospital Stay Acute Hospital Stay: No Margo Smith RN Nurse Pest Control Pilot * Case Mgmt DC Plan - Darcy [...] for the patient. Margo Smith RN Nurse Pest Control Pilot documented in this encounter Plan of Treatment [...] VIRAL PANEL PCR Routine 10/20/2018 11:05 PM MEMBERSHIP ASSISTANT ABDOMEN AP ONLY Routine 10/20/2018 8:25 PM MEMBERSHIP ASSISTANT ABDOMEN AP ONLY Routine 10/20/2018 8:18 PM MEMBERSHIP ASSISTANT AMMONIA Routine 10/20/2018 3:57 PM MEMBERSHIP ASSISTANT LIVER FUNCTION PANEL Routine 10/20/2018 3:57 PM MEMBERSHIP ASSISTANT MRI HEAD WO/W CONTRAST STAT 10/20/2018 3:[address] LOWER EXTREM W CONT Routine 10/20/2018 BILAT 1:[address] INT AUD CANAL WO Routine 10/20/2018 CONTRAST 1:50 PM MEMBERSHIP ASSISTANT POTASSIUM Routine 10/20/2018 11:17 AM MEMBERSHIP ASSISTANT ACETAMINOPHEN LEVEL Routine 10/20/2018 11:17 AM MEMBERSHIP ASSISTANT 2-D + DOPPLER Routine 10/20/2018 ECHOCARDIOGRAM 10:08 AM MEMBERSHIP ASSISTANT BLOOD GASES, ARTERIAL Routine 10/20/2018 3:49 AM MEMBERSHIP ASSISTANT CBC AND DIFF Routine 10/20/2018 3:38 AM MEMBERSHIP ASSISTANT PHOSPHORUS Routine 10/20/2018 3:38 AM MEMBERSHIP ASSISTANT MAGNESIUM Routine 10/20/2018 3:38 AM MEMBERSHIP ASSISTANT IONIZED CALCIUM Routine 10/20/2018 3:38 AM MEMBERSHIP ASSISTANT BASIC METABOLIC PANEL Routine 10/20/2018 3:38 AM MEMBERSHIP ASSISTANT GRAM STAIN 10/20/2018 1:28 AM MEMBERSHIP ASSISTANT CULTURE-WOUND/TISSUE/FLUI Routine 10/20/2018 D(AEROBIC 1:28 AM MEMBERSHIP ASSISTANT ONLY)W/SENSITIVITY GRAM STAIN 10/20/2018 1:07 AM MEMBERSHIP ASSISTANT CULTURE-RESP,LOWER Routine 10/20/2018 W/SENSITIVITY 1:07 AM MEMBERSHIP ASSISTANT BLOOD GASES, ARTERIAL STAT 10/20/2018 1:[address] HEAD WO CONTRAST Routine 10/20/2018 12:45 AM MEMBERSHIP ASSISTANT CULTURE-BLOOD Routine 10/20/2018 W/SENSITIVITY 12:12 AM MEMBERSHIP ASSISTANT CULTURE-BLOOD Routine 10/20/2018 W/SENSITIVITY 12:11 AM MEMBERSHIP ASSISTANT CHEST SINGLE VIEW STAT 10/19/2018 11:45 PM MEMBERSHIP ASSISTANT PHENCYCLIDINES-URINE Routine 10/19/2018 RANDOM 11:36 PM MEMBERSHIP ASSISTANT OPIATES-URINE RANDOM Routine 10/19/2018 11:36 PM MEMBERSHIP ASSISTANT COCAINE-URINE RANDOM Routine 10/19/2018 11:36 PM MEMBERSHIP ASSISTANT CANNABINOIDS-URINE RANDOM Routine 10/19/2018 11:36 PM MEMBERSHIP ASSISTANT BENZODIAZEPINES-URINE Routine 10/19/2018 RANDOM 11:36 PM MEMBERSHIP ASSISTANT BARBITURATES-URINE RANDOM Routine 10/19/2018 11:36 PM MEMBERSHIP ASSISTANT AMPHETAMINES-URINE RANDOM Routine 10/19/2018 11:36 PM MEMBERSHIP ASSISTANT PROTIME INR (PT) STAT 10/19/2018 11:36 PM MEMBERSHIP ASSISTANT CBC AND DIFF STAT 10/19/2018 11:36 PM MEMBERSHIP ASSISTANT PHOSPHORUS STAT 10/19/2018 11:36 PM MEMBERSHIP ASSISTANT MAGNESIUM STAT 10/19/2018 11:36 PM MEMBERSHIP ASSISTANT LACTIC ACID(LACTATE) STAT 10/19/2018 11:36 PM MEMBERSHIP ASSISTANT IONIZED CALCIUM STAT 10/19/2018 11:36 PM MEMBERSHIP ASSISTANT COMPREHENSIVE METABOLIC STAT 10/19/2018 PANEL 11:36 PM MEMBERSHIP ASSISTANT TELEMETRY STRIPS-SCAN 10/19/2018 12:00 AM 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 Phone Number [facility]IN LAB [address] [place] [address] * MAGNESIUM (11/03/2018 5:42 AM CDT) Magnesium 2.2 1.6 - 2.6 mg/dL [facility] MAIN LAB Specimen Blood Performing Organization Address [facility] Phone Number MAIN LAB [address] [place] [address] * BASIC METABOLIC PANEL (11/03/2018 5:42 AM [...] >60 >60 mL/min [facility] MAIN LAB Comment: [place] The eGFR is not validated for use in drug dosing adjustments.Continue to use estimated creatinine clearance per dosing reference text.Please contact the Clinical Pharmacist for questions. eGFR >60 >60 mL/min [facility] MAIN LAB [place] Comment: The eGFR is not validated for use in drug dosing adjustments.Continue to use estimated creatinine clearance per dosing reference text.Please contact the Clinical Pharmacist for questions. Specimen Blood Performing Organization Address [facility]/Zipcode Phone Number MAIN LAB [address] [place] [address] * CBC (11/03/2018 5:42 AM CDT) White [...] Specimen Blood Performing Organization Address [facility] Phone Number MAIN LAB [address] [place] [address] * IONIZED CALCIUM (11/03/2018 5:42 AM CDT) Ionized Calcium 1.26 1.0 - 1.3 MMOL/L MAIN LAB Specimen Blood Performing Organization Address [facility] Phone Number MAIN LAB [address] [place] [address] * PROCALCITONIN (11/02/2018 9:55 AM CDT) Procalcitonin 0.07 <0.10 NG/ML MAIN LAB Specimen Blood Performing Organization Address [facility] Phone Number MAIN LAB [address] [place] [address] * PHOSPHORUS (11/02/2018 3:45 AM CDT) Phosphorus 4.4Comment: NOTE NEW REFERENCE 2.0 - 4.5 MG/DL MAIN LAB RANGES Specimen Blood Performing Organization Address [facility] Phone Number MAIN LAB [address] [place] [address] * MAGNESIUM (11/02/2018 3:45 AM CDT) Magnesium 2.3 1.6 - 2.6 mg/dL MAIN LAB Specimen Blood Performing Organization Address [facility] Phone Number MAIN LAB [address] [place] [address] * BASIC METABOLIC PANEL (11/02/2018 3:45 AM CDT) Sodium 139 137 - 147 MMOL/L MAIN LAB Potassium 4.3 3.5 - 5.1 [...] >60 >60 mL/min [facility] MAIN LAB Comment: [place] The eGFR is not validated for use in drug dosing adjustments.Continue to use estimated creatinine clearance per dosing reference text.Please contact the Clinical Pharmacist for questions. eGFR >60 >60 mL/min [facility] MAIN [facility] [place] Comment: The eGFR is not validated for use in drug dosing adjustments.Continue to use estimated creatinine clearance per dosing reference text.Please contact the Clinical Pharmacist for questions. Specimen Blood Performing Organization Address City/State/Zipcode Phone Number MAIN LAB [address] [place] [address] * CBC AND DIFF (11/02/2018 3:45 AM [...] Basophil Count Specimen Blood Performing Organization Address City/[facility] Phone Number [facility] [address] [place] [address] * IONIZED CALCIUM (11/02/2018 3:45 AM CDT) Ionized Calcium 1.29 1.0 - 1.3 MMOL/L [facility] MAIN [facility] Specimen Blood Performing Organization Address [facility]/Zipcode Phone Number [facility] MAIN LAB [address] [place] [address] * IR GASTROSTOMY (11/01/2018 5:03 PM CDT) [...] placed over the Amplatz wire, a 22 Hong [place]er peel-away sheath was advanced over the wire into the gastric lumen. The EZIO 1 catheter was then advanced over the Amplatz wire which was then exchanged for a stiff Glidewire. An 18 Hong Konger 45 cm gastrojejunostomy tube was advanced over [...] placed over the Amplatz wire, a 22 [place] Konger peel-away sheath was advanced over the wire into the gastric lumen. The EZIO 1 catheter was then advanced over the Amplatz wire which was then exchanged for a stiff Glidewire. An 18 [place] Konger 45 cm gastrojejunostomy tube was advanced over [...] on 11/02/2018 8:00 AM. Performing Organization Address City/[facility] Phone Number RAD RESULTS * MAGNESIUM (11/01/2018 1:53 PM CDT) Magnesium 2.6 1.6 - 2.6 mg/dL [facility] MAIN LAB Specimen Blood Performing Organization Address [facility] Phone Number MAIN LAB [address] [place] [address] * POTASSIUM (11/01/2018 1:53 PM CDT) Potassium 5.0 3.5 - 5.1 MMOL/L [facility] MAIN [facility] Specimen Blood Performing Organization Address [facility] Phone Number MAIN LAB [address] [place] [address] * IONIZED CALCIUM (11/01/2018 4:15 AM CDT) Ionized Calcium 1.29 1.0 - 1.3 MMOL/L MAIN LAB Specimen Blood Performing Organization Address [facility] Phone Number MAIN LAB [address] [place] [address] * PHOSPHORUS (11/01/2018 4:15 AM CDT) Phosphorus 4.4Comment: NOTE NEW REFERENCE 2.0 - 4.5 MG/DL MAIN LAB RANGES Specimen Blood Performing Organization Address [facility] Phone Number MAIN LAB [address] [place] [address] * MAGNESIUM (11/01/2018 4:15 AM CDT) Magnesium 2.0 1.6 - 2.6 mg/dL MAIN LAB Specimen Blood Performing Organization Address [facility] Phone Number MAIN LAB [address] [place] [address] * BASIC METABOLIC PANEL (11/01/2018 4:15 AM [...] >60 >60 mL/min [facility] MAIN LAB Comment: [place] The eGFR is not validated for use in drug dosing adjustments.Continue to use estimated creatinine clearance per dosing reference text.Please contact the Clinical Pharmacist for questions. eGFR >60 >60 mL/min [facility]IN [facility] [place] Comment: The eGFR is not validated for use in drug dosing adjustments.Continue to use estimated creatinine clearance per dosing reference text.Please contact the Clinical Pharmacist for questions. Specimen Blood Performing Organization Address City/State/Zipcode Phone Number MAIN LAB [address] [place] [address] * CBC AND DIFF (11/01/2018 4:15 AM [...] Number [facility] MAIN LAB [address] [place] [address] * CHEST SINGLE VIEW (10/31/2018 11:48 AM [...] on 10/31/2018 12:12 PM. Performing Organization Address City/[facility]/Zipcode Phone Number RAD RESULTS * IONIZED CALCIUM (10/31/2018 2:50 AM CDT) Ionized Calcium 1.35 (H) 1.0 - 1.3 MMOL/L [facility] MAIN [facility] Specimen Blood Performing Organization Address [facility] Phone Number [facility] MAIN [facility] [address] [place] [address] * PHOSPHORUS (10/31/2018 2:50 AM CDT) Phosphorus 5.8 (H)Comment: NOTE NEW 2.0 - 4.5 MG/DL [facility] MAIN LAB REFERENCE RANGES Specimen Blood Performing Organization Address [facility] Phone Number [facility] MAIN [facility] [address] [place] [address] * MAGNESIUM (10/31/2018 2:50 AM CDT) Magnesium 2.1 1.6 - 2.6 mg/dL [facility] MAIN [facility] Specimen Blood Performing Organization Address [facility] Phone Number [facility] [address] [place] [address] * BASIC METABOLIC PANEL (10/31/2018 2:50 AM [...] >60 >60 mL/min [facility] MAIN [facility] Comment: [place] The eGFR is not validated for use in drug dosing adjustments.Continue to use estimated creatinine clearance per dosing reference text.Please contact the Clinical Pharmacist for questions. eGFR >60 >60 mL/min [facility]IN [facility] [place] Comment: The eGFR is not validated for use in drug dosing adjustments.Continue to use estimated creatinine clearance per dosing reference text.Please contact the Clinical Pharmacist for questions. Specimen Blood Performing Organization Address City/State/Zipcode Phone Number [facility] MAIN [facility] [address] [place] [address] * CBC AND DIFF (10/31/2018 2:50 AM [...] Basophil Count Specimen Blood Performing Organization Address City/[facility]/Zipcode Phone Number [facility] MAIN LAB [address] [place] [address] * BASIC METABOLIC PANEL (10/30/2018 7:45 PM CDT) Sodium 138 137 - 147 MMOL/L [facility] MAIN LAB Potassium 4.1 3.5 - 5.1 MMOL/L [facility] MAIN [facility] Chloride 105 98 - 110 MMOL/L [facility] MAIN [facility] CO2 27 21 - 30 MMOL/L [facility]IN [facility] Anion Gap 6 3 - 12 MAIN LAB Glucose 107 (H) 70 - 100 MG/DL MAIN LAB Blood Urea 13 7 - 25 MG/DL MAIN LAB Nitrogen Creatinine 0.49 0.4 - 1.00 MG/DL MAIN LAB Calcium 9.9 8.5 - 10.6 MG/DL MAIN LAB eGFR Non >60 >60 mL/min MAIN LAB Comment: [place] The eGFR is not validated for use in drug dosing adjustments.Continue to use estimated creatinine clearance per dosing reference text.Please contact the Clinical Pharmacist for questions. eGFR >60 >60 mL/min MAIN LAB [place] Comment: The eGFR is not validated for use in drug dosing adjustments.Continue to use estimated creatinine clearance per dosing reference text.Please contact the Clinical Pharmacist for questions. Specimen Blood Performing Organization Address City/[facility]/Zipcode Phone Number MAIN LAB [address] [place] [address] * POC IONIZED CALCIUM (10/30/2018 7:25 PM CDT) Ionized 1.43 (H) 1.0 - 1.3 MMOL/L [facility] Calcium-POC Specimen Performing Organization Address City/[facility] Phone Number MAIN LAB [address] [place] [phone] * POC SODIUM (10/30/2018 7:25 PM CDT) Sodium-POC 150 (H) 137 - 147 MMOL/L MAIN LAB Specimen Performing Organization Address [facility] Phone Number MAIN LAB [address] [place] [address] * POC POTASSIUM (10/30/2018 7:25 PM CDT) Potassium-POC 4.2 3.5 - 5.1 MMOL/L MAIN LAB Specimen Performing Organization Address [facility]/Zipcode Phone Number MAIN LAB [address] [place] [phone] * POC HEMATOCRIT (10/30/2018 7:25 PM CDT) Hemoglobin POC 11.2 (L) 12.0 - 15.0 GM/DL MAIN LAB Hematocrit POC 33.0 (L) 36 - 45 % MAIN LAB Specimen Performing Organization Address City/[facility]/Zipcode Phone Number [facility] [address] [place] [address] * POC BLOOD GAS ARTERIAL (10/30/2018 7:25 PM CDT) PH-ART-POC 7.34 (L) 7.35 - 7.45 MAIN LAB [id number] 50 (H) 35 - 45 MMHG MAIN LAB PO2-ART-POC 103 (H) 80 - 100 MMHG MAIN LAB Base Ex-ART-POC 1.0 MMOL/L [facility] O2 Sat-ART-POC 97.0 95 - 99 % [facility] Bicarbonate-ART 27.2 21 - 28 MMOL/L [facility] -POC Specimen Performing Organization Address City/[facility]/Zipcode Phone Number [facility] [address] [place] [address] * SURGICAL PATHOLOGY (10/30/2018 9:38 AM CDT) PATHOLOGY [facility] MAIN [facility] [email or web address] Department of Pathology and Laboratory Medicine [address] [place] [place] [address] Surgical Pathology Office:[phone] :[phone] SURGICAL PATHOLOGY REPORT NAME: ETELVINA ALONSO SURG PATH #: [id number] MR #: [id number] SPECIMEN CLASS: [facility] BILLING #: [id number] ALT ID #:LOCATION: [facility] DATE OF PROCEDURE: 10/30/2018 AGE:58 SEX: F [...] report. +++ +++ Kartik Mabry MD Resident utw/10/30/2018 ############################## ############################## ############ Material Received: A: mastoid contents History: 58-year-old female history of altered mental status, unspecified altered mental status type Gross Description: A. Fixative: Formalin Labeled: "Mastoid contents" Dimensions: 1.0 x 0.2 x 0.2 cm in aggregate Decalcification solution used: No Cassette A1- Etl Analyst section of specimen.(lmt) lt/10/30/2018 Specimen Performing Organization Address [facility] Phone Number [facility] [address] [place] [address] * IONIZED CALCIUM (10/30/2018 4:05 AM CDT) Ionized Calcium 1.26 1.0 - 1.3 MMOL/L MAIN LAB Specimen Blood Performing Organization Address [facility] Phone Number [facility] [address] [place] [address] * PHOSPHORUS (10/30/2018 4:05 AM CDT) Phosphorus 5.8 (H)Comment: NOTE NEW 2.0 - 4.5 MG/DL [facility] REFERENCE RANGES Specimen Blood Performing Organization Address [facility]/Zipcode Phone Number [facility] [address] [place] [address] * MAGNESIUM (10/30/2018 4:05 AM CDT) Magnesium 2.1 1.6 - 2.6 mg/dL MAIN LAB Specimen Blood Performing Organization Address [facility] Phone Number [facility] [address] [place] [address] * BASIC METABOLIC PANEL (10/30/2018 4:05 AM [...] >60 >60 mL/min [facility] MAIN [facility] Comment: [place] The eGFR is not validated for use in drug dosing adjustments.Continue to use estimated creatinine clearance per dosing reference text.Please contact the Clinical Pharmacist for questions. eGFR >60 >60 mL/min [facility] MAIN [facility] [place] Comment: The eGFR is not validated for use in drug dosing adjustments.Continue to use estimated creatinine clearance per dosing reference text.Please contact the Clinical Pharmacist for questions. Specimen Blood Performing Organization Address City/State/Zipcode Phone Number MAIN LAB [address] [place] [address] * CBC AND DIFF (10/30/2018 4:05 AM CDT) Pathologist [facility] White Blood 11.0 4.5 - 11.0 K/UL [...] Basophil Count Specimen Blood Performing Organization Address City/[facility] Phone Number MAIN LAB [address] [place] [address] * POC IONIZED CALCIUM (10/29/2018 3:37 PM CDT) Ionized 1.29 1.0 - 1.3 MMOL/L MAIN LAB Calcium-POC Specimen Performing Organization Address City/[facility] Phone Number MAIN LAB [address] [place] [address] * POC SODIUM (10/29/2018 3:37 PM CDT) Sodium-POC 139 137 - 147 MMOL/L MAIN LAB Specimen Performing Organization Address City/[facility] Phone Number MAIN LAB [address] [place] [address] * POC POTASSIUM (10/29/2018 3:37 PM CDT) Potassium-POC 4.2 3.5 - 5.1 MMOL/L MAIN LAB Specimen Performing Organization Address [facility] Phone Number MAIN LAB [address] [place] [phone] * POC HEMATOCRIT (10/29/2018 3:37 PM CDT) Hemoglobin POC 8.8 (L) 12.0 - 15.0 GM/DL MAIN LAB Hematocrit POC 26.0 (L) 36 - 45 % MAIN LAB Specimen Performing Organization Address City/[facility] Phone Number MAIN LAB [address] [place] [address] * POC BLOOD GAS EDDI (10/29/2018 3:37 PM CDT) PH-EDDI-POC 7.33 7.30 - 7.40 [facility] MAIN LAB AMA6-KYY-EKV 48 36 - 50 MMHG [facility] MAIN LAB PO2-EDDI-POC 51 (H) 33 - 48 MMHG [facility] MAIN LAB Base Ex-EDDI-POC 0.0 MMOL/L [facility] MAIN LAB O2 Sat-EDDI-POC 83.0 (H) 55 - 71 % [facility] MAIN LAB Bicarbonate-EDDI 25.5 MMOL/L [facility] MAIN LAB -POC Specimen Performing Organization Address City/State/Zipcode Phone Number MAIN LAB [address] [place] [address] * US ABDOMEN COMPLETE (10/29/2018 8:13 AM [...] City/State/Zipcode Phone Number [facility] RAD RESULTS * BLOOD TYPE CONFIRMATION - ORDER ONLY IF REQUESTED BY LAB (10/29/2018 4:18 AM CDT) ABO/RH(D) O POS MAIN LAB Specimen Performing Organization Address City/State/Zipcode Phone Number MAIN LAB [address] [place] [phone] * IONIZED CALCIUM (10/29/2018 4:18 AM CDT) Ionized Calcium 1.22 1.0 - 1.3 MMOL/L [facility] MAIN [facility] Specimen Blood Performing Organization Address City/[facility] Phone Number [facility] [address] [place] [address] * PHOSPHORUS (10/29/2018 4:18 AM CDT) Phosphorus 4.8 (H)Comment: NOTE NEW 2.0 - 4.5 MG/DL [facility] MAIN LAB REFERENCE RANGES Specimen Blood Performing Organization Address [facility] Phone Number MAIN LAB [address] [place] [address] * MAGNESIUM (10/29/2018 4:18 AM CDT) Magnesium 2.3 1.6 - 2.6 mg/dL [facility] MAIN LAB Specimen Blood Performing Organization Address [facility] Phone Number MAIN LAB [address] [place] [address] * BASIC METABOLIC PANEL (10/29/2018 4:18 AM [...] >60 >60 mL/min [facility] MAIN LAB Comment: [place] The eGFR is not validated for use in drug dosing adjustments.Continue to use estimated creatinine clearance per dosing reference text.Please contact the Clinical Pharmacist for questions. eGFR >60 >60 mL/min [facility] MAIN [facility] [place] Comment: The eGFR is not validated for use in drug dosing adjustments.Continue to use estimated creatinine clearance per dosing reference text.Please contact the Clinical Pharmacist for questions. Specimen Blood Performing Organization Address [facility]/Zipcode Phone Number MAIN LAB [address] [place] [phone] * CBC AND DIFF (10/29/2018 4:18 AM [...] LAB Monocytes 10 4 - 12 % MAIN LAB Eosinophils 2 0 - 5 % MAIN LAB Basophils 1 0 - 2 % MAIN LAB Absolute 7.90 (H) 1.8 - [...] Basophil Count Specimen Blood Performing Organization Address City/[facility]/Zipcode Phone Number MAIN LAB [address] [address] * TYPE & CROSSMATCH (10/28/2018 5:01 PM CDT) Units Ordered 1 MAIN LAB Crossmatch 10/31/2018 MAIN LAB Expires Record Check 2ND TYPE REQUIRED MAIN LAB ABO/RH(D) O POS [facility] MAIN LAB Antibody Screen NEG [facility] MAIN LAB Electronic YES MAIN LAB Crossmatch Unit Number [id number] MAIN LAB Blood Component RBC,ADSOL,LEUKO REDUCED [facility] MAIN LAB Type Unit Division 0 [facility] MAIN LAB Status OF Unit TRANSFUSED [facility] MAIN LAB Transfusion OK TO TRANSFUSE [facility] MAIN LAB Status Crossmatch COMPATIBLE,ELECTRONIC MAIN LAB Result Specimen Blood Performing Organization Address City/State/Zipcode Phone Number MAIN LAB [address] [place] [address] * POTASSIUM (10/28/2018 2:14 PM CDT) Potassium 5.1 3.5 - 5.1 MMOL/L MAIN LAB Specimen Blood Performing Organization Address [facility] Phone Number MAIN LAB [address] [place] [address] * IRON + BINDING CAPACITY + %SAT+ FERRITIN (10/28/2018 2:14 PM CDT) Iron 21 (L) 50 - 160 MCG/DL [facility] MAIN LAB Iron 344 270 - 380 MCG/DL [facility] MAIN LAB Binding-TIBC % Saturation 6 (L) 28 - 42 % [facility] MAIN LAB Ferritin 168 10 - 200 NG/ML MAIN LAB Specimen Blood Performing Organization Address [facility] Phone Number MAIN LAB [address] [place] [address] * RETICULOCYTE COUNT (10/28/2018 2:14 PM CDT) Retic, 2.1 (H) 0.5 - 2.0 % [facility] MAIN LAB Uncorrected Retic, 1.3 % [facility] MAIN LAB Corrected Retic, Absolute 59.2 30 - 94 K/UL MAIN LAB Specimen Blood Performing Organization Address [facility] Phone Number MAIN LAB [address] [place] [address] * IONIZED CALCIUM (10/28/2018 3:51 AM CDT) Ionized Calcium 1.32 (H) 1.0 - 1.3 MMOL/L MAIN LAB Specimen Blood Performing Organization Address [facility] Phone Number MAIN LAB [address] [place] [address] * PHOSPHORUS (10/28/2018 3:43 AM CDT) Phosphorus 4.4Comment: NOTE NEW REFERENCE 2.0 - 4.5 MG/DL MAIN LAB RANGES Specimen Blood Performing Organization Address [facility] Phone Number MAIN LAB [address] [place] [address] * MAGNESIUM (10/28/2018 3:43 AM CDT) Magnesium 2.2 1.6 - 2.6 mg/dL [facility] MAIN LAB Specimen Blood Performing Organization Address City/[facility]/Zipcode Phone Number MAIN LAB [address] [place] [address] * BASIC METABOLIC PANEL (10/28/2018 3:43 AM [...] >60 >60 mL/min [facility] MAIN LAB Comment: [place] The eGFR is not validated for use in drug dosing adjustments.Continue to use estimated creatinine clearance per dosing reference text.Please contact the Clinical Pharmacist for questions. eGFR >60 >60 mL/min [facility] MAIN LAB [place] Comment: The eGFR is not validated for use in drug dosing adjustments.Continue to use estimated creatinine clearance per dosing reference text.Please contact the Clinical Pharmacist for questions. Specimen Blood Performing Organization Address City/State/Zipcode Phone Number MAIN LAB [address] [place] [address] * CBC AND DIFF (10/28/2018 3:43 AM [...] Basophil Count Specimen Blood Performing Organization Address [facility] Phone Number MAIN LAB [address] [place] [address] * IONIZED CALCIUM (10/27/2018 4:38 AM CDT) Ionized Calcium 1.26 1.0 - 1.3 MMOL/L MAIN LAB Specimen Blood Performing Organization Address [facility] [place] Phone Number MAIN LAB [address] [place] [address] * BLOOD GASES, ARTERIAL (10/27/2018 4:38 AM [...] Blood, arterial - Blood Performing Organization Address [facility] Phone Number MAIN LAB [address] [place] [address] * PHOSPHORUS (10/27/2018 4:18 AM CDT) Phosphorus 4.0Comment: NOTE NEW REFERENCE 2.0 - 4.5 MG/DL [facility] MAIN LAB RANGES Specimen Blood Performing Organization Address [facility] Phone Number MAIN LAB [address] [place] [address] * MAGNESIUM (10/27/2018 4:18 AM CDT) Magnesium 2.2 1.6 - 2.6 mg/dL [facility] MAIN LAB Specimen Blood Performing Organization Address City/[facility]/Zipcode Phone Number MAIN LAB [address] [place] [address] * BASIC METABOLIC PANEL (10/27/2018 4:18 AM [...] >60 >60 mL/min [facility] MAIN LAB Comment: [place] The eGFR is not validated for use in drug dosing adjustments.Continue to use estimated creatinine clearance per dosing reference text.Please contact the Clinical Pharmacist for questions. eGFR >60 >60 mL/min [facility] MAIN LAB [place] Comment: The eGFR is not validated for use in drug dosing adjustments.Continue to use estimated creatinine clearance per dosing reference text.Please contact the Clinical Pharmacist for questions. Specimen Blood Performing Organization Address City/[facility]/Zipcode Phone Number MAIN LAB [address] [place] [address] * CBC AND DIFF (10/27/2018 4:18 AM [...] Basophil Count Specimen Blood Performing Organization Address City/[facility] Phone Number MAIN LAB [address] [place] [address] * LIVER FUNCTION PANEL (10/27/2018 4:18 AM [...] Specimen Blood Performing Organization Address [facility] Phone Number [facility] MAIN LAB [address] [place] [address] * POTASSIUM (10/26/2018 8:52 PM CDT) Potassium 4.1 3.5 - 5.1 MMOL/L [facility] MAIN LAB Specimen Blood Performing Organization Address [facility]/Zipcode Phone Number MAIN LAB [address] [place] [address] * MRI HEAD WO/W CONTRAST (10/26/2018 5:18 [...] on 10/26/2018 8:01 AM. Performing Organization Address [facility] Phone Number [facility] RESULTS * PHOSPHORUS (10/26/2018 3:16 AM CDT) Phosphorus 3.8Comment: NOTE NEW REFERENCE 2.0 - 4.5 MG/DL [facility] MAIN LAB RANGES Specimen Blood Performing Organization Address [facility] [place] Phone Number MAIN LAB [address] [place] [phone] * MAGNESIUM (10/26/2018 3:16 AM CDT) Magnesium 2.2 1.6 - 2.6 mg/dL [facility] MAIN LAB Specimen Blood Performing Organization Address [facility] [place] Phone Number MAIN LAB [address] [place] [address] * BASIC METABOLIC PANEL (10/26/2018 3:16 AM [...] >60 >60 mL/min [facility] MAIN LAB Comment: [place] The eGFR is not validated for use in drug dosing adjustments.Continue to use estimated creatinine clearance per dosing reference text.Please contact the Clinical Pharmacist for questions. eGFR >60 >60 mL/min [facility] MAIN LAB [place] Comment: The eGFR is not validated for use in drug dosing adjustments.Continue to use estimated creatinine clearance per dosing reference text.Please contact the Clinical Pharmacist for questions. Specimen Blood Performing Organization Address City/[facility]/Zipcode Phone Number [facility] MAIN LAB [address] [place] [address] * CBC AND DIFF (10/26/2018 3:16 AM [...] Basophil Count Specimen Blood Performing Organization Address City/[facility]/Zipcode Phone Number [facility] MAIN LAB [address] [place] [address] * IONIZED CALCIUM (10/26/2018 3:16 AM CDT) Ionized Calcium 1.20 1.0 - 1.3 MMOL/L [facility] MAIN LAB Specimen Blood Performing Organization Address City/[facility] Phone Number [facility] MAIN LAB [address] [place] [address] * PHOSPHORUS (10/25/2018 2:00 PM CDT) Phosphorus 3.2Comment: NOTE NEW REFERENCE 2.0 - 4.5 MG/DL [facility] MAIN LAB RANGES Specimen Blood Performing Organization Address City/[facility]/Zipcode Phone Number [facility] MAIN LAB [address] [place] [address] * POTASSIUM (10/25/2018 8:15 AM CDT) Potassium 4.4 3.5 - 5.1 MMOL/L [facility] MAIN LAB Specimen Blood Performing Organization Address [facility] Phone Number [facility] MAIN LAB [address] [place] [address] * POC GLUCOSE (10/25/2018 6:30 AM CDT) Glucose, POC 161 (H) 70 - 100 MG/DL [facility] MAIN LAB Specimen Performing Organization Address [facility] Phone Number MAIN LAB [address] [place] [address] * CHEST SINGLE VIEW (10/25/2018 4:08 AM [...] below the diaphragm and out of the [id number]. There is mild cardiomegaly with mild pulmonary [...] below the diaphragm and out of the [id number]. There is mild cardiomegaly with mild pulmonary [...] on 10/25/2018 10:20 AM. Performing Organization Address [facility] Phone Number RAD RESULTS * PHOSPHORUS (10/25/2018 3:19 AM CDT) Phosphorus 1.6 (L)Comment: NOTE NEW 2.0 - 4.5 MG/DL MAIN LAB REFERENCE RANGES Specimen Blood Performing Organization Address [facility] Phone Number MAIN LAB [address] [place] [address] * MAGNESIUM (10/25/2018 3:19 AM CDT) Magnesium 2.2 1.6 - 2.6 mg/dL [facility] MAIN LAB Specimen Blood Performing Organization Address [facility] Phone Number MAIN LAB [address] [place] [address] * BASIC METABOLIC PANEL (10/25/2018 3:19 AM CDT) Pathologist [facility] Sodium 140 137 - 147 MMOL/L KU [...] >60 >60 mL/min [facility] MAIN LAB Comment: [place] The eGFR is not validated for use in drug dosing adjustments.Continue to use estimated creatinine clearance per dosing reference text.Please contact the Clinical Pharmacist for questions. eGFR >60 >60 mL/min [facility] MAIN LAB [place] Comment: The eGFR is not validated for use in drug dosing adjustments.Continue to use estimated creatinine clearance per dosing reference text.Please contact the Clinical Pharmacist for questions. Specimen Blood Performing Organization Address City/State/Zipcode Phone Number MAIN LAB [address] [place] [address] * CBC AND DIFF (10/25/2018 3:19 AM CDT) Pathologist [facility] [...] Basophil Count Specimen Blood Performing Organization Address City/[facility] Phone Number MAIN LAB [address] [place] [address] * AMMONIA (10/25/2018 3:19 AM CDT) Ammonia 50 (H) 9 - 35 MCMOL/L MAIN LAB Specimen Blood Performing Organization Address [facility] Phone Number MAIN LAB [address] [place] [address] * IONIZED CALCIUM (10/25/2018 3:19 AM CDT) Ionized Calcium 1.15 1.0 - 1.3 MMOL/L MAIN LAB Specimen Blood Performing Organization Address [facility] Phone Number MAIN LAB [address] [place] [address] * POC GLUCOSE (10/24/2018 10:00 PM CDT) Glucose, POC 147 (H) 70 - 100 MG/DL MAIN LAB Specimen Performing Organization Address [facility] Phone Number MAIN LAB [address] [place] [address] * C DIFFICILE BY PCR (10/24/2018 6:30 PM CDT) Battery Name C DIFFICILE PCR MAIN LAB Specimen FECES MAIN LAB Description Special NONE MAIN LAB Requests C. difficile NEGATIVE-wait 7 days to repeat MAIN LAB Toxin B PCR test Report Status FINAL MAIN LAB 10/25/2018 Specimen Feces Performing Organization Address [facility] Phone Number MAIN LAB [address] [place] [address] * POTASSIUM (10/24/2018 9:56 AM CDT) Potassium 3.5 3.5 - 5.1 MMOL/L MAIN LAB Specimen Blood Performing Organization Address [facility] Phone Number [facility] MAIN LAB [address] [place] [address] * MAGNESIUM (10/24/2018 9:56 AM CDT) Magnesium 2.5 1.6 - 2.6 mg/dL [facility] MAIN LAB Specimen Blood Performing Organization Address [facility] Phone Number [facility] MAIN LAB [address] [place] [address] * VANCOMYCIN TROUGH (10/24/2018 9:56 AM CDT) Vancomycin 11.8 10.0 - 20.0 MCG/ML [facility] MAIN LAB Trough Specimen Blood, venous - Blood Performing Organization Address [facility] [place] Phone Number MAIN LAB [address] [place] [address] * IONIZED CALCIUM (10/24/2018 2:00 AM CDT) Ionized Calcium 1.17 1.0 - 1.3 MMOL/L [facility] MAIN LAB Specimen Blood Performing Organization Address [facility] [place] Phone Number MAIN LAB [address] [place] [address] * PHOSPHORUS (10/24/2018 2:00 AM CDT) Phosphorus 2.5Comment: NOTE NEW REFERENCE 2.0 - 4.5 MG/DL [facility] MAIN LAB RANGES Specimen Blood Performing Organization Address [facility] Phone Number [facility] MAIN LAB [address] [place] [address] * MAGNESIUM (10/24/2018 2:00 AM CDT) Magnesium 1.9 1.6 - 2.6 mg/dL [facility] MAIN LAB Specimen Blood Performing Organization Address [facility] Phone Number MAIN LAB [address] [place] [address] * CBC AND DIFF (10/24/2018 2:00 AM [...] Address City/State/Zipcode Phone Number MAIN LAB [address] [place] [address] * BASIC METABOLIC PANEL (10/24/2018 2:00 AM [...] >60 >60 mL/min [facility] MAIN LAB Comment: [place] The eGFR is not validated for use in drug dosing adjustments.Continue to use estimated creatinine clearance per dosing reference text.Please contact the Clinical Pharmacist for questions. eGFR >60 >60 mL/min [facility] MAIN LAB [place] Comment: The eGFR is not validated for use in drug dosing adjustments.Continue to use estimated creatinine clearance per dosing reference text.Please contact the Clinical Pharmacist for questions. Specimen Blood Performing Organization Address City/State/Zipcode Phone Number MAIN LAB [address] [place] [address] * ABDOMEN AP ONLY (10/23/2018 9:27 PM [...] and upper abdomen are included in the [id number]. There is generalized cardiomegaly. There are zones [...] and upper abdomen are included in the [id number]. There is generalized cardiomegaly. There are zones [...] on 10/24/2018 6:35 AM. Performing Organization Address City/[facility] Phone Number RAD RESULTS * GRAM STAIN (10/23/2018 4:15 PM CDT) Battery Name GRAM STAIN MAIN LAB Specimen CSF MAIN LAB Description Special NONE MAIN LAB Requests Gram Stain RARE [facility] LAB NEUTROPHILS NO ORGANISMS SEEN Report Status FINAL [facility] LAB 10/23/2018 Specimen Cerebrospinal Fluid Performing Organization Address [facility] Phone Number MAIN LAB [address] [place] [address] * HERPES SIMPLEX PCR - NON-BLOOD (10/23/2018 4:15 PM CDT) Specimen, CSF MAIN LAB Herpes Herpes Simplex HSV 1 and 2 NOT DETECTED HSVND-HSV 1 and 2 [facility] LAB PCR Comment: NOT DETECTED [employer] HSV 1&2 Assay is a qualitative real-time PCR test for the direct detection and differentiation of HSV 1 and 2 DNA. This assay is FDA approved for testing cutaneous or mucocutaneous lesions from symptomatic patients. Performance on modifications of this test as well as other specimen types has been validated by the Department of Pathology and Laboratory Medicine at the [facility]. Specimen Cerebrospinal Fluid Performing Organization Address [facility] [place] Phone Number MAIN LAB [address] [place] [address] * CULTURE-CSF W/SENSITIVITY (10/23/2018 4:15 PM CDT) Battery Name CSF CULTURE MAIN LAB Specimen CSF MAIN LAB Description Special NONE MAIN LAB Requests Direct Gram RARE MAIN LAB Stain NEUTROPHILS NO ORGANISMS SEEN Culture NO GROWTH 3 DAYS MAIN LAB Report Status FINAL MAIN LAB 10/26/2018 Specimen Cerebrospinal fluid - Cerebrospinal Fluid Performing Organization Address [facility] Phone Number MAIN LAB [address] [place] [address] * GLUCOSE-CSF (10/23/2018 4:15 PM CDT) Glucose,CSF 70 40 - 75 MG/DL MAIN LAB Xanthrochromia, NONE MAIN LAB CSF BLOOD PRESENT Specimen Cerebrospinal fluid - Cerebrospinal Fluid Performing Organization Address [facility] Phone Number MAIN LAB [address] [place] [address] * TOTAL PROTEIN-CSF (10/23/2018 4:15 PM CDT) Pathologist [facility] Total 70 (H) 15 - 45 MG/DL MAIN LAB Protein,CSF Specimen Cerebrospinal fluid - Cerebrospinal Fluid Performing Organization Address [facility] Phone Number [facility] [address] [place] [address] * CELL COUNT W/DIFF-CSF (10/23/2018 4:15 PM [...] Cerebrospinal Fluid Performing Organization Address [facility] Phone Number [facility] [address] [place] [address] * TRANSESOPHAGEAL ECHOCARDIOGRAM (10/23/2018 3:51 PM CDT) Pathologist [facility] Mr max bozena 6.5 m/s OTHER OUTSIDE LAB BSA 1.57 m2 OTHER OUTSIDE LAB CV ECHO PV MARI Doan; Floor RN OTHER OUTSIDE WAREHOUSE PROCESSOR LAB Cardiology Siemens [id number] OTHER OUTSIDE Ultrasound LAB Machine ECHO EF [...] This study was read in conjunction with supervisor concrete block plant, Dr. Don Dominguez.I have personally reviewed the study and co-formulated the interpretation expressed in this report. Performing Organization Address City/[facility] Phone Number OTHER OUTSIDE LAB * POTASSIUM (10/23/2018 1:17 PM CDT) Potassium 4.0 3.5 - 5.1 MMOL/L [facility] LAB Specimen Blood Performing Organization Address City/[facility] Phone Number [facility] [address] [place] [address] * BLOOD GASES, ARTERIAL (10/23/2018 3:25 AM CDT) pH-Arterial 7.48 (H) 7.35 - 7.45 MAIN LAB pCO2-Arterial 51 (H) 35 - 45 MMHG MAIN LAB pO2-Arterial 117 (H) 80 - 100 MMHG MAIN LAB Base 12.6 MMOL/L MAIN LAB Excess-Arterial O2 Sat-Arterial 98.7 95 - 99 % MAIN LAB Bicarbonate-ART 36.4 (H) 21 - 28 MMOL/L MAIN LAB -John Specimen Blood, arterial - Blood Performing Organization Address [facility]/[employer] Phone Number [facility] [address] [place] [address] * IONIZED CALCIUM (10/23/2018 3:25 AM CDT) Ionized Calcium 1.18 1.0 - 1.3 MMOL/L [facility] MAIN LAB Specimen Blood Performing Organization Address City/[facility]/Zipcode Phone Number [facility] MAIN LAB [address] [place] [address] * PHOSPHORUS (10/23/2018 3:25 AM CDT) Phosphorus 1.6 (L)Comment: NOTE NEW 2.0 - 4.5 MG/DL [facility] MAIN LAB REFERENCE RANGES Specimen Blood Performing Organization Address [facility] Phone Number [facility] MAIN LAB [address] [place] [address] * MAGNESIUM (10/23/2018 3:25 AM CDT) Magnesium 2.0 1.6 - 2.6 mg/dL [facility] MAIN LAB Specimen Blood Performing Organization Address [facility] Phone Number [facility] MAIN LAB [address] [place] [address] * CBC AND DIFF (10/23/2018 3:25 AM [...] Basophil Count Specimen Blood Performing Organization Address City/[facility]/Zipcode Phone Number MAIN LAB [address] [place] [address] * BASIC METABOLIC PANEL (10/23/2018 3:25 AM [...] Blood Urea 10 7 - 25 MG/DL MAIN LAB Nitrogen Creatinine 0.33 (L) 0.4 - 1.00 MG/DL MAIN LAB Calcium 8.1 (L) 8.5 - 10.6 MG/DL MAIN LAB eGFR Non >60 >60 mL/min MAIN LAB Comment: [place] The eGFR is not validated for use in drug dosing adjustments.Continue to use estimated creatinine clearance per dosing reference text.Please contact the Clinical Pharmacist for questions. eGFR >60 >60 mL/min MAIN LAB [place] Comment: The eGFR is not validated for use in drug dosing adjustments.Continue to use estimated creatinine clearance per dosing reference text.Please contact the Clinical Pharmacist for questions. Specimen Blood Performing Organization Address City/[facility]/Zipcode Phone Number MAIN LAB [address] [place] [address] * CULTURE-BLOOD W/SENSITIVITY (10/22/2018 12:36 PM CDT) Battery Name BLOOD CULTURE MAIN LAB Specimen BLOOD MAIN LAB Description RIGHT ANTECUBITAL Special aerobic bottle only MAIN LAB Requests Culture performed on specimen with less than the recommended volume of 10 ml/bottle. Decreased volume will affect sensitivity of culture. Culture NO GROWTH 5 DAYS [facility] MAIN LAB Report Status FINAL MAIN LAB 10/28/2018 Specimen Blood Performing Organization Address City/[facility]/Zipcode Phone Number MAIN LAB [address] [place] [address] * CULTURE-BLOOD W/SENSITIVITY (10/22/2018 11:43 AM CDT) Battery Name BLOOD CULTURE MAIN LAB Specimen BLOOD MAIN LAB Description RIGHT ANTECUBITAL Special NONE [facility] MAIN LAB Requests Culture NO GROWTH 5 DAYS [facility] MAIN LAB Report Status FINAL [facility] MAIN LAB 10/28/2018 Specimen Blood Performing Organization Address City/[facility]/Zipcode Phone Number MAIN LAB [address] [place] [address] * BLOOD GASES, ARTERIAL (10/22/2018 3:15 AM [...] Blood, arterial - Blood Performing Organization Address City/[facility]/Zipcode Phone Number MAIN LAB [address] [place] [address] * IONIZED CALCIUM (10/22/2018 3:15 AM CDT) Ionized Calcium 1.23 1.0 - 1.3 MMOL/L MAIN LAB Specimen Blood Performing Organization Address City/[facility]/Zipcode Phone Number MAIN LAB [address] [place] [address] * PHOSPHORUS (10/22/2018 3:15 AM CDT) Phosphorus 1.9 (L)Comment: NOTE NEW 2.0 - 4.5 MG/DL MAIN LAB REFERENCE RANGES Specimen Blood Performing Organization Address City/[facility]/Zipcode Phone Number MAIN LAB [address] [place] [address] * MAGNESIUM (10/22/2018 3:15 AM CDT) Magnesium 2.1 1.6 - 2.6 mg/dL MAIN LAB Specimen Blood Performing Organization Address City/[facility]/Zipcode Phone Number MAIN LAB [address] [place] [phone] * CBC AND DIFF (10/22/2018 3:15 AM CDT) White Blood 16.3 (H) 4.5 - 11.0 K/UL MAIN LAB Cells RBC 2.94 (L) 4.0 [...] Address City/State/Zipcode Phone Number MAIN LAB [address] [place] [address] * BASIC METABOLIC PANEL (10/22/2018 3:15 AM [...] >60 >60 mL/min [facility] MAIN LAB Comment: [place] The eGFR is not validated for use in drug dosing adjustments.Continue to use estimated creatinine clearance per dosing reference text.Please contact the Clinical Pharmacist for questions. eGFR >60 >60 mL/min [facility] MAIN LAB [place] Comment: The eGFR is not validated for use in drug dosing adjustments.Continue to use estimated creatinine clearance per dosing reference text.Please contact the Clinical Pharmacist for questions. Specimen Blood Performing Organization Address City/[facility]/Zipcode Phone Number [facility] [address] [place] [address] * VANCOMYCIN TROUGH (10/21/2018 9:41 PM CDT) Vancomycin 9.8 (L) 10.0 - 20.0 MCG/ML [facility] MAIN LAB Trough Specimen Blood, venous - Blood Performing Organization Address [facility] Phone Number MAIN LAB [address] [place] [address] * SODIUM (10/21/2018 1:35 PM CDT) Sodium 149 (H) 137 - 147 MMOL/L MAIN LAB Specimen Blood Performing Organization Address [facility] Phone Number [facility] [address] [place] [address] * ABDOMEN AP ONLY (10/21/2018 10:38 AM [...] on 10/21/2018 11:19 AM. Performing Organization Address City/State/Zipcode Phone Number [facility] RAD RESULTS * IONIZED CALCIUM (10/21/2018 3:10 AM CDT) Ionized Calcium 1.20 1.0 - 1.3 MMOL/L [facility] MAIN LAB Specimen Blood Performing Organization Address [facility] Phone Number [facility] MAIN LAB [address] [place] [address] * PHOSPHORUS (10/21/2018 3:10 AM CDT) Phosphorus 2.5Comment: NOTE NEW REFERENCE 2.0 - 4.5 MG/DL [facility] MAIN LAB RANGES Specimen Blood Performing Organization Address [facility] Phone Number MAIN LAB [address] [place] [address] * MAGNESIUM (10/21/2018 3:10 AM CDT) Magnesium 2.1 1.6 - 2.6 mg/dL [facility] MAIN LAB Specimen Blood Performing Organization Address [facility] [place] Phone Number [facility] MAIN LAB [address] [place] [address] * CBC AND DIFF (10/21/2018 3:10 AM [...] Count Absolute 0.60 0 - 0.80 K/UL MAIN LAB Monocyte Count Absolute 0.00 0 - 0.45 K/UL [facility] MAIN LAB Eosinophil Count Absolute 0.10 0 - 0.20 K/UL [facility] Basophil Count Specimen Blood Performing Organization Address City/[facility]/Zipcode Phone Number [facility] [address] [place] [address] * BASIC METABOLIC PANEL (10/21/2018 3:10 AM CDT) [facility] [facility] Sodium 150 (H) 137 - 147 MMOL/L MAIN LAB Potassium 3.4 (L) 3.5 - 5.1 MMOL/L MAIN LAB Chloride 113 (H) 98 - 110 MMOL/L [facility] MAIN LAB CO2 30 21 - 30 MMOL/L MAIN LAB Anion Gap 7 3 - 12 MAIN LAB Glucose 118 (H) 70 - 100 MG/DL MAIN LAB Blood Urea 9 7 - 25 MG/DL MAIN LAB Nitrogen Creatinine 0.48 0.4 - 1.00 MG/DL MAIN LAB Calcium 8.8 8.5 - 10.6 MG/DL MAIN LAB eGFR Non >60 >60 mL/min MAIN LAB Comment: [place] The eGFR is not validated for use in drug dosing adjustments.Continue to use estimated creatinine clearance per dosing reference text.Please contact the Clinical Pharmacist for questions. eGFR >60 >60 mL/min [facility] [place] Comment: The eGFR is not validated for use in drug dosing adjustments.Continue to use estimated creatinine clearance per dosing reference text.Please contact the Clinical Pharmacist for questions. Specimen Blood Performing Organization Address City/[facility] Phone Number [facility] [address] [place] [address] * RVP VIRAL PANEL PCR (10/20/2018 11:05 PM MEMBERSHIP ASSISTANT) Pathologist [facility] Specimen Source NASOPHARYNGEAL SWAB [facility] This assay uses analyte specific reagents and has not been cleared by the [place] Food and Drug Administration.The performance characteristics were determined by the [facility]. Adenovirus NOT DETECTED [facility] Coronavirus NOT DETECTED [facility] 229E Coronavirus NOT DETECTED [facility] HKU1 Coronavirus NOT DETECTED [facility] NL63 Coronavirus NOT DETECTED [facility] MAIN [...] Number [facility] MAIN LAB [address] [place] [address] * ABDOMEN AP ONLY (10/20/2018 8:25 PM MEMBERSHIP ASSISTANT) Specimen Impressions Performed At Impression: Tip of [...] on 10/21/2018 10:08 AM. Performing Organization Address City/[facility]/Zipcode Phone Number [facility] RAD RESULTS * ABDOMEN AP ONLY (10/20/2018 8:18 PM MEMBERSHIP ASSISTANT) Specimen Impressions Performed At Tip of the [...] on 10/21/2018 11:52 AM. Performing Organization Address [facility] Phone Number RAD RESULTS * LIVER FUNCTION PANEL (10/20/2018 3:57 PM MEMBERSHIP ASSISTANT) Total Bilirubin 0.3 0.3 - 1.2 MG/DL [...] Specimen Blood Performing Organization Address [facility] Phone Number MAIN LAB [address] [place] [address] * AMMONIA (10/20/2018 3:57 PM MEMBERSHIP ASSISTANT) Ammonia 76 (H) 9 - 35 MCMOL/L [facility] MAIN LAB Specimen Blood Performing Organization Address [facility] Phone Number MAIN LAB [address] [place] [address] * MRI HEAD WO/W CONTRAST (10/20/2018 3:41 PM MEMBERSHIP ASSISTANT) Specimen Addenda Addendum by Mayank Price MD [...] Interface, Radiant Results - 10/20/2018 4:46 PM MEMBERSHIP ASSISTANT EXAM: MRI BRAIN (SKULL BASE PROTOCOL) HISTORY: [...] EXTREM W CONT BILAT (10/20/2018 1:56 PM MEMBERSHIP ASSISTANT) Specimen Bilateral Impressions Performed At 1. Mild [...] AUD CANAL WO CONTRAST (10/20/2018 1:50 PM MEMBERSHIP ASSISTANT) Specimen Impressions Performed At 1.Extensive thinning and [...] RAD RESULTS * POTASSIUM (10/20/2018 11:17 AM MEMBERSHIP ASSISTANT) Pathologist [facility] Potassium 4.0 3.5 - 5.1 MMOL/L MAIN LAB Specimen Blood Performing Organization Address City/[facility]/Zipcode Phone Number MAIN LAB [address] [place] [address] * ACETAMINOPHEN LEVEL (10/20/2018 11:17 AM MEMBERSHIP ASSISTANT) [facility] Acetaminophen <10.0 <20.1 MCG/ML MAIN LAB Specimen Blood Performing Organization Address City/[facility]/Zipcode Phone Number MAIN LAB [address] [place] [address] * 2-D + DOPPLER ECHOCARDIOGRAM (10/20/2018 10:08 AM MEMBERSHIP ASSISTANT) [facility] IVS 0.76 0.6 - 0.9 cm OTHER [...] OUTSIDE Systolic TDI S' LAB MR ELVIA OTRRES 0.07 cm2 OTHER OUTSIDE LAB Left Atrium 33.29 16 - 34 OTHER OUTSIDE Index LAB Cardiology Siemens [id number] OTHER OUTSIDE Ultrasound LAB Machine Left Ventricle 62.44 44 - 88 g/m2 OTHER OUTSIDE Mass Index LAB ECHO EF 40 % OTHER OUTSIDE LAB Specimen Narrative Performed At OTHER OUTSIDE LAB LVEF=35-40% With Mid To Distal Anteroapical Severe Hypokinesis To Akinesis. Zypcodpzjus=052-742 bpm Normal LV Wall Thickness Normal Chamber Dimensions Anterior Mitral Valve Borderline Prolapse No Vegetations Moderate Eccentric Posterior Lateral Jet Mitral Valve Regurgitation No Pericardial Effusion PASP=33mmHg Performing Organization Address City/[facility] Phone Number OTHER OUTSIDE LAB * BLOOD GASES, ARTERIAL (10/20/2018 3:49 AM MEMBERSHIP ASSISTANT) pH-Arterial 7.41 7.35 - 7.45 [facility] MAIN LAB pCO2-Arterial 47 (H) 35 - 45 MMHG [facility] MAIN LAB pO2-Arterial 99 80 - 100 MMHG [facility] MAIN LAB Base 3.9 MMOL/L MAIN LAB Excess-Arterial O2 Sat-Arterial 97.7 95 - 99 % [facility] MAIN LAB Bicarbonate-ART 27.9 21 - 28 MMOL/L [facility] MAIN LAB -John Specimen Blood, arterial - Blood Performing Organization Address [facility] [place] Phone Number MAIN LAB [address] [place] [address] * IONIZED CALCIUM (10/20/2018 3:38 AM MEMBERSHIP ASSISTANT) Ionized Calcium 1.22 1.0 - 1.3 MMOL/L MAIN LAB Specimen Blood Performing Organization Address [facility] Phone Number MAIN LAB [address] [place] [address] * PHOSPHORUS (10/20/2018 3:38 AM MEMBERSHIP ASSISTANT) Phosphorus 3.0Comment: NOTE NEW REFERENCE 2.0 - 4.5 MG/DL MAIN LAB RANGES Specimen Blood Performing Organization Address [facility] Phone Number MAIN LAB [address] [place] [address] * MAGNESIUM (10/20/2018 3:38 AM MEMBERSHIP ASSISTANT) Magnesium 2.6 1.6 - 2.6 mg/dL [facility] MAIN LAB Specimen Blood Performing Organization Address [facility] Phone Number [facility] MAIN LAB [address] [place] [address] * CBC AND DIFF (10/20/2018 3:38 AM MEMBERSHIP ASSISTANT) Pathologist [facility] White Blood 14.2 (H) 4.5 - 11.0 [...] Basophil Count Specimen Blood Performing Organization Address City/[facility] Phone Number [facility] MAIN LAB [address] [place] [address] * BASIC METABOLIC PANEL (10/20/2018 3:38 AM MEMBERSHIP ASSISTANT) Pathologist [facility] Sodium 146 137 - 147 MMOL/L K[facility] [...] Nitrogen Creatinine 0.50 0.4 - 1.00 MG/DL [facility] Calcium 8.7 8.5 - 10.6 MG/DL [facility] eGFR Non >60 >60 mL/min MAIN LAB Comment: [place] The eGFR is not validated for use in drug dosing adjustments.Continue to use estimated creatinine clearance per dosing reference text.Please contact the Clinical Pharmacist for questions. eGFR >60 >60 mL/min [facility] [place] Comment: The eGFR is not validated for use in drug dosing adjustments.Continue to use estimated creatinine clearance per dosing reference text.Please contact the Clinical Pharmacist for questions. Specimen Blood Performing Organization Address City/[facility]/Zipcode Phone Number [facility] [address] [place] [address] * GRAM STAIN (10/20/2018 1:28 AM MEMBERSHIP ASSISTANT) Battery Name GRAM STAIN MAIN LAB Specimen SWAB MAIN LAB Description WOUND LEFT LEG Special NONE MAIN LAB Requests Gram Stain NO NEUTROPHILS SEEN [facility] NO ORGANISMS SEEN Report Status FINAL [facility] 10/20/2018 Specimen Swab Performing Organization Address City/[facility]/Zipcode Phone Number [facility] [address] [place] [address] * CULTURE-WOUND/TISSUE/FLUID(AEROBIC ONLY)W/SENSITIVITY (10/20/2018 1:28 AM MEMBERSHIP ASSISTANT) Battery Name ROUTINE CULTURE MAIN LAB Specimen SWAB MAIN LAB Description WOUND LEFT LEG Special NONE MAIN LAB Requests Direct Gram NO NEUTROPHILS SEEN MAIN LAB Stain NO ORGANISMS SEEN Culture Four Colonies [facility] PSEUDOMONAS AERUGINOSA (A) Report Status FINAL [facility] 10/25/2018 Organism ID [id number] [...] Four colonies pseudomonas aeruginosa Performing Organization Address City/[facility] Phone Number MAIN LAB [address] [place] [address] * GRAM STAIN (10/20/2018 1:07 AM MEMBERSHIP ASSISTANT) Battery Name GRAM STAIN [facility] MAIN LAB Specimen TRACHEAL ASPIRATE MAIN LAB Description Special NONE MAIN LAB Requests Gram Stain LESS THAN 10/LPF MAIN LAB NEUTROPHILS LESS THAN 10/LPF SQUAMOUS EPITHELIAL CELLS NO ORGANISMS SEEN Report Status FINAL MAIN LAB 10/20/2018 Specimen Tracheal Aspirate Performing Organization Address [facility] Phone Number MAIN LAB [address] [place] [address] * CULTURE-RESP,LOWER W/SENSITIVITY (10/20/2018 1:07 AM MEMBERSHIP ASSISTANT) Battery Name LOWER RESP CULTURE MAIN LAB Specimen TRACHEAL ASPIRATE MAIN LAB Description Special NONE MAIN LAB Requests Direct Gram LESS THAN 10/LPF [facility] MAIN LAB Stain NEUTROPHILS LESS THAN 10/LPF SQUAMOUS EPITHELIAL CELLS NO ORGANISMS SEEN Culture Moderate growth MAIN LAB NO SIGNIFICANT CHELSEY Report Status FINAL MAIN LAB 10/22/2018 Specimen Tracheal Aspirate Performing Organization Address [facility] Phone Number MAIN LAB [address] [place] [address] * BLOOD GASES, ARTERIAL (10/20/2018 1:01 AM MEMBERSHIP ASSISTANT) pH-Arterial 7.32 (L) 7.35 - 7.45 KU [...] Phone Number MAIN LAB [address] [place] [address] * CT HEAD WO CONTRAST (10/20/2018 12:45 AM MEMBERSHIP ASSISTANT) Specimen Impressions Performed At 1.Right inferior temporal [...] Interface, Radiant Results - 10/20/2018 8:[address] HEAD WITHOUT CONTRAST HISTORY: 58 years old Female, intraparenchymal air TECHNIQUE: CT images of the head were acquired without intravenous contrast. COMPARISON: Outside CTA from one day prior. FINDINGS: BRAIN PARENCHYMA: There is focal hypodensities in loss of vitcoria-white differentiation within the right inferior temporal lobe [...] on 10/20/2018 7:49 AM. Performing Organization Address City/State/Zipcode Phone Number RAD RESULTS * CULTURE-BLOOD W/SENSITIVITY (10/20/2018 12:12 AM MEMBERSHIP ASSISTANT) Battery Name BLOOD CULTURE [facility] MAIN LAB Specimen BLOOD [facility] MAIN LAB Description RIGHT RADIAL Special NONE [facility] MAIN LAB Requests Culture NO GROWTH 5 DAYS [facility] MAIN LAB Report Status FINAL [facility] MAIN LAB 10/26/2018 Specimen Blood Performing Organization Address City/[facility]/Zipcode Phone Number [facility] MAIN LAB [address] [place] [address] * CULTURE-BLOOD W/SENSITIVITY (10/20/2018 12:11 AM MEMBERSHIP ASSISTANT) Battery Name BLOOD CULTURE [facility] MAIN LAB Specimen BLOOD [facility] MAIN LAB Description LEFT RADIAL Special NONE [facility] MAIN LAB Requests Culture NO GROWTH 5 DAYS [facility] MAIN LAB Report Status FINAL [facility] MAIN LAB 10/26/2018 Specimen Blood Performing Organization Address City/[facility]/Zipcode Phone Number [facility] MAIN LAB [address] [place] [address] * CHEST SINGLE VIEW (10/19/2018 11:45 PM MEMBERSHIP ASSISTANT) Specimen Impressions Performed At 1. Tubes and [...] Interface, Radiant Results - 10/20/2018 10:12 AM MEMBERSHIP ASSISTANT CHEST SINGLE VIEW Clinical Indication: Female, 58 [...] on 10/20/2018 8:40 AM. Performing Organization Address [facility] [place] Phone Number [facility] RESULTS * PHENCYCLIDINES-URINE RANDOM (10/19/2018 11:36 PM MEMBERSHIP ASSISTANT) Phencyclidine NEG NEG-NEG [facility] (PCP) Comment: RESULTS WERE OBTAINED BY IMMUNOASSAY AND ARE PRESUMPTIVE ONLY. POSITIVE INDICATES THE PRESENCE OF SUBSTANCE WITH CHARACTERISTICS SIMILAR TO DRUG-DRUG CLASS OR METABOLITE IN CONC. EQUAL TO OR EXCEEDING VALUES LISTED. PHENCYCLIDINE (PCP)25 NG/ML Specimen Urine - Urine Performing Organization Address [facility] [place] Phone Number MAIN LAB [address] [place] [address] * OPIATES-URINE RANDOM (10/19/2018 11:36 PM MEMBERSHIP ASSISTANT) Opiates-Urine NEG NEG-NEG [facility] Comment: RESULTS WERE OBTAINED BY IMMUNOASSAY AND ARE PRESUMPTIVE ONLY. POSITIVE INDICATES THE PRESENCE OF SUBSTANCE WITH CHARACTERISTICS SIMILAR TO DRUG-DRUG CLASS OR METABOLITE IN CONC. EQUAL TO OR EXCEEDING VALUES LISTED. OPIATES 2000 NG/ML Specimen Urine - Urine Performing Organization Address [facility] [place] Phone Number [facility] MAIN LAB [address] [place] [address] * COCAINE-URINE RANDOM (10/19/2018 11:36 PM MEMBERSHIP ASSISTANT) Cocaine-Urine NEG NEG-NEG [facility] Comment: RESULTS WERE OBTAINED BY IMMUNOASSAY AND ARE PRESUMPTIVE ONLY. POSITIVE INDICATES THE PRESENCE OF SUBSTANCE WITH CHARACTERISTICS SIMILAR TO DRUG-DRUG CLASS OR METABOLITE IN CONC. EQUAL TO OR EXCEEDING VALUES LISTED. COCAINE 300 NG/ML Specimen Urine - Urine Performing Organization Address [facility] [place] Phone Number [facility] [address] [place] [address] * CANNABINOIDS-URINE RANDOM (10/19/2018 11:36 PM MEMBERSHIP ASSISTANT) THC NEG NEG-NEG [facility] Comment: RESULTS WERE OBTAINED BY IMMUNOASSAY AND ARE PRESUMPTIVE ONLY. POSITIVE INDICATES THE PRESENCE OF SUBSTANCE WITH CHARACTERISTICS SIMILAR TO DRUG-DRUG CLASS OR METABOLITE IN CONC. EQUAL TO OR EXCEEDING VALUES LISTED. CANNABINOIDS 50 NG/ML Specimen Urine - Urine Performing Organization Address [facility] [place] Phone Number [facility] [address] [place] [address] * BENZODIAZEPINES-URINE RANDOM (10/19/2018 11:36 PM MEMBERSHIP ASSISTANT) Benzodiazepines POS (A) NEG-NEG [facility] Comment: RESULTS WERE OBTAINED BY IMMUNOASSAY AND ARE PRESUMPTIVE ONLY. POSITIVE INDICATES THE PRESENCE OF SUBSTANCE WITH CHARACTERISTICS SIMILAR TO DRUG-DRUG CLASS OR METABOLITE IN CONC. EQUAL TO OR EXCEEDING VALUES LISTED. BENZODIAZEPINES 200 NG/ML Specimen Urine - Urine Performing Organization [facility] [place] Phone Number [facility] [address] [place] [address] * BARBITURATES-URINE RANDOM (10/19/2018 11:36 PM MEMBERSHIP ASSISTANT) Barbiturates,Ur POS (A) NEG-NEG [facility] ine Comment: RESULTS WERE OBTAINED BY IMMUNOASSAY AND ARE PRESUMPTIVE ONLY. POSITIVE INDICATES THE PRESENCE OF SUBSTANCE WITH CHARACTERISTICS SIMILAR TO DRUG-DRUG CLASS OR METABOLITE IN CONC. EQUAL TO OR EXCEEDING VALUES LISTED. BARBITURATES 200 NG/ML Specimen Urine - Urine Performing Organization Address [facility] Phone Number [facility] [address] [place] [address] * AMPHETAMINES-URINE RANDOM (10/19/2018 11:36 PM MEMBERSHIP ASSISTANT) Amphetamines NEG NEG-NEG [facility] Comment: RESULTS WERE OBTAINED BY IMMUNOASSAY AND ARE PRESUMPTIVE ONLY. POSITIVE INDICATES THE PRESENCE OF SUBSTANCE WITH CHARACTERISTICS SIMILAR TO DRUG-DRUG CLASS OR METABOLITE IN CONC. EQUAL TO OR EXCEEDING VALUES LISTED. AMPHETAMINES 1000 NG/ML Specimen Urine - Urine Performing Organization Address [facility] Phone Number [facility] [address] [place] [address] * PHOSPHORUS (10/19/2018 11:36 PM MEMBERSHIP ASSISTANT) Phosphorus 2.8Comment: NOTE NEW REFERENCE 2.0 - 4.5 MG/DL [facility] MAIN LAB RANGES Specimen Blood Performing Organization Address City/[facility] Phone Number [facility] MAIN LAB [address] [place] [address] * MAGNESIUM (10/19/2018 11:36 PM MEMBERSHIP ASSISTANT) Magnesium 1.9 1.6 - 2.6 mg/dL [facility] MAIN LAB Specimen Blood Performing Organization Address City/[facility] Phone Number [facility] MAIN LAB [address] [place] [address] * IONIZED CALCIUM (10/19/2018 11:36 PM MEMBERSHIP ASSISTANT) Ionized Calcium 1.21 1.0 - 1.3 MMOL/L MAIN LAB Specimen Blood Performing Organization Address [facility] Phone Number MAIN LAB [address] [place] [address] * LACTIC ACID(LACTATE) (10/19/2018 11:36 PM MEMBERSHIP ASSISTANT) Lactic Acid 0.9 0.5 - 2.0 MMOL/L MAIN LAB Specimen Blood Performing Organization Address [facility] Phone Number MAIN LAB [address] [place] [address] * COMPREHENSIVE METABOLIC PANEL (10/19/2018 11:36 PM MEMBERSHIP ASSISTANT) Sodium 144 137 - 147 MMOL/L K[facility] [...] >60 >60 mL/min [facility] MAIN LAB Comment: [place] The eGFR is not validated for use in drug dosing adjustments.Continue to use estimated creatinine clearance per dosing reference text.Please contact the Clinical Pharmacist for questions. eGFR >60 >60 mL/min [facility] MAIN LAB [place] Comment: The eGFR is not validated for use in drug dosing adjustments.Continue to use estimated creatinine clearance per dosing reference text.Please contact the Clinical Pharmacist for questions. Specimen Blood Performing Organization Address City/[facility]/Zipcode Phone Number [facility] [address] [place] [address] * PROTIME INR (PT) (10/19/2018 11:36 PM MEMBERSHIP ASSISTANT) INR 1.0 0.8 - 1.2 [facility] Specimen Blood Performing Organization Address City/[facility]/Zipcode Phone Number [facility] [address] [place] [address] * CBC AND DIFF (10/19/2018 11:36 PM MEMBERSHIP ASSISTANT) White Blood 13.0 (H) 4.5 - 11.0 K/UL [facility] Cells RBC 3.11 (L) 4.0 - 5.0 M/UL [facility] MAIN LAB Hemoglobin 9.8 (L) 12.0 - 15.0 GM/DL [facility] MAIN LAB Hematocrit 29.4 (L) 36 - 45 % [facility] MAIN LAB MCV 94.3 80 - 100 [place] MAIN LAB MCH 31.5 26 - 34 [...] Address City/State/Zipcode Phone Number [facility] MAIN LAB [address] [place] [address] * TELEMETRY STRIPS-SCAN (10/19/2018 12:00 AM MEMBERSHIP ASSISTANT) Narrative Performed At Ordered by an unspecified provider. * ECG-SCAN (10/19/2018 12:00 AM MEMBERSHIP ASSISTANT) Narrative Performed At Ordered by an unspecified [...] 110 mL, Administer over 1 Hours, NEEDED (LONGWALL MACHINE OPERATOR HELPER FROM RX), Starting 10/20/18 at 0145, Until [...] NG tube, TWICE DAILY, First dose on Mon10/25/18 at 2100, Until Discontinued 20 mg Given [...] 1%/EPINEPHrine 1:100,000 Given injection INTRA-PROCEDURE MED, Starting Mon10/29/18 at 1451, Until Mon10/29/18 at 1641, Intra-op 4 mL Ear, Behind [...] at 1555, Until 10/29/18 at 1641, Intra-op 10/28/2018 8:42 PM CDT 1 patch Arm, Left nicotine (NICODERM CQ STEP 1) 21 mg/day Patch/Topica patch 1 patch l Applied 1 patch, Transdermal, Administer over 24 Hours, DAILY, First dose on Mon10/20/18 at 0100, Until Discontinued 1 patch Arm, [...] 1 capsule 1 capsule, Feeding Tube, NEEDED (LONGWALL MACHINE OPERATOR HELPER FROM RX), Starting 10/21/18 at 0733, Until [...]
--- OUTSIDE RECORDS SUMMARY | 2019-01-28 09:04 | XMS REPORT | Encounter Summary ---
Author Author [facility] Organization [facility] Address Unknown Phone Unavailable Care Team Providers Care Nursery [employer] Attendant Name Role Phone Tamia Fonseca MD PCP Encounter Details Care Team Description Date Type Department Arlin Black CRNA [id number] [place] [address] [phone] 10/23/2018 Anesthesia [facility] [address] [facility] [id number] [place] [address] Anesthesia Record Responsible Anesthesiologist Anesthesia Start Time [...]
--- OUTSIDE RECORDS SUMMARY | 2019-01-28 09:04 | XMS REPORT | Encounter Summary ---
Author Author [facility] Organization [facility] Address Unknown Phone Unavailable Care Team Providers Care Application Development Specialist Name Role Phone Tamia Fonseca MD PCP Encounter Details Care Team Description Date Type Department Rosalba Amezcua RN 10/23/2018 Telephone [facility] [address] [facility] [place] [address] Social History Date Tobacco Use Types Packs/Day [...] Miscellaneous Notes * Telephone Encounter - Rosalba Amezcua RN - 10/23/2018 11:09 AM CDT Called and spoke with patients , Leonidas Mora, phone consent obtained for JYOTSNA , all questions answered. documented in this encounter Plan of Treatment Not on filedocumented as of this encounter Visit Diagnoses Not on filedocumented in this encounter
--- OUTSIDE RECORDS SUMMARY | 2019-01-28 09:04 | XMS REPORT | Encounter Summary ---
Author Author [facility] Organization [facility] Address Unknown Phone Unavailable Care Team Providers Care School Health Aide Name Role Phone Tamia Fonseca MD PCP Reason for Visit * Auth/Cert Referred By Contact Referred To Contact Status Reason Specialty Diagnoses / Procedures Diagnoses Pneumocephalus altered mental status Encounter Details Care Team Description Date Type Department Jose Whalen SRNA 10/29/2018 Anesthesia [facility] [place] [address] [place] [address] Anesthesia Record Responsible Anesthesiologist Anesthesia Start Time [...] with portable vent, portable monitor and 02. PRIMER CHARGER and Dr Vilchis. 1639 an stop data [...] (NOT for Incision; Dehiscence from prior surgery [facility] Pressure Injuries) Pressure 10/24/18; 0800; N; Sacrum; [...] by (NOT for Incision; 10/31/18; Dehiscence from [facility] Pressure prior surgery Injuries) 11/01/18 1800 by Radha Hu RN [place] 10/23/18; 2100; Nose; Yes; Nursing; 10/23/18 [...] Evaluation - Kayla Vilchis MD - 10/29/2018 4:51 PM CDT Post-Anesthesia Evaluation Name: Rocío Mora [...] ICU Transfer Note Attestation: I evaluated the pa tient and the indicated post-anesthesia care is discharge and transfer to the [facility] physician-lead team. Staff name: Kayla Vilchis MD [...] mg/2 mL nebulizer solution Inhale 1 mg soluti on by nebulizer as directed twice daily. clopiDOGrel [...] ipratropium/albuterol (COMBIVENT RESPIMAT) 20-100 mcg/actuation mist inhaler Inh orlin 1 puff by mouth into the lungs every 4 hours as needed. lisinopril (PRINIVIL; ZESTRIL) 5 mg tablet Take 5 mg by mouth daily. melatonin 3 mg tab Take 5 mg by mouth at bedtime daily. metoprolol XL (TOPROL XL) 25 mg extended release tablet Take 25 mg by mouth weston y. nicotine (NICODERM CQ STEP 1) 21 mg/day patch Apply 1 patch to top of skin as di rected every 24 hours. Rotate patch location. ondansetron (ZOFRAN) 4 mg tablet Take 8 mg by mouth twice daily as needed for Na usea or Vomiting. oxyCODONE/acetaminophen (PERCOCET; ENDOCET; ROXICET) 5/325 mg tablet Take 1 tabl et by mouth every 6 hours as needed for Pain polyethylene glycol 3350 (MIRALAX) 17 g packet Take 17 g by mouth twice daily. potassium chloride SR (K-DUR) 20 mEq tablet Take 20 mEq by mouth daily. Take wit h a meal and a full glass of [...] has been no significant int erval changes. This study was read in conjunction with sustainable development policy analyst, Dr. Don Dominguez. I have personally reviewed the study and co-formulated the interpretation expres sed in this report. Exercise tolerance: unknown Hypertension, [...] Evaluation - Kayla Vilchis MD - 10/29/2018 1:33 PM CDT Anesthesia Pre-Procedure Evaluation Name: Rocío Mora : 1960 Age: 58 y.o. Sex : female Procedure Date: 10/29/2018 Procedure: Procedure(s) with comments: MASTOIDECTOMY - SIMPLE, TYMPANOPLASTY - CASE LENGTH 2 HOURS Physical Assessment Vital Signs (last filed in past 24 hours): BP: 107/55 (10/29 1313) Temp: 36.9 C (98.5 F) (10/29 1313) Pulse: 59 (10/29 1313) Respirations: 20 PER MINUTE (10/29 131) SpO2: 99 % (10/29 131) O2 Delivery: Endotracheal Tube (Oral) (10/29 1313) [...] mg/2 mL nebulizer solution Inhale 1 mg soluti on by nebulizer as directed twice daily. clopiDOGrel [...] ipratropium/albuterol (COMBIVENT RESPIMAT) 20-100 mcg/actuation mist inhaler Inh orlin 1 puff by mouth into the lungs every 4 hours as needed. lisinopril (PRINIVIL; ZESTRIL) 5 mg tablet Take 5 mg by mouth daily. melatonin 3 mg tab Take 5 mg by mouth at bedtime daily. metoprolol XL (TOPROL XL) 25 mg extended release tablet Take 25 mg by mouth weston y. nicotine (NICODERM CQ STEP 1) 21 mg/day patch Apply 1 patch to top of skin as di rected every 24 hours. Rotate patch location. ondansetron (ZOFRAN) 4 mg tablet Take 8 mg by mouth twice daily as needed for Na usea or Vomiting. oxyCODONE/acetaminophen (PERCOCET; ENDOCET; ROXICET) 5/325 mg tablet Take 1 tabl et by mouth every 6 hours as needed for Pain polyethylene glycol 3350 (MIRALAX) 17 g packet Take 17 g by mouth twice daily. potassium chloride SR (K-DUR) 20 mEq tablet Take 20 mEq by mouth daily. Take wit h a meal and a full glass of [...] than 4 months ago with post op debilitati on and poor wound healing with aggressive infections) [...] Consent: consented Plan discussed with: anesthesiologist and PRIMER CHARGER. documented in this encounter Plan of Treatment Not on filedocumented as of this encounter Visit Diagnoses Not on filedocumented in this encounter Administered Medications Action Date Dose Rate Site Medication Order MAR Action 10/29/2018 2:31 PM CDT 2 drops dextran 70/hypromellose (GENTEAL TEARS; Given BION TEARS) ophthalmic solution INTRA-PROCEDURE MED, Starting Mon10/29/18 at 1431, Until Mon10/29/18 at 1653, Anesthesia Intra-op 10/29/2018 2:43 PM CDT 10 mg ePHEDrine injection Given INTRA-PROCEDURE MED, Starting 10/29/18 at 1443, Until Mon10/29/18 at 1653, Anesthesia Intra-op 10/29/2018 2:47 PM CDT 50 mcg fentaNYL citrate PF (SUBLIMAZE) Given injection INTRA-PROCEDURE MED, Starting 10/29/18 at 1437, Until 10/29/18 at 1653, Anesthesia Intra-op 50 mcg Given 10/29/2018 2:37 PM CDT 10/29/2018 2:17 PM CDT lactated ringers infusion Given - New INTRA-PROCEDURE MED(CONT), Starting Mon Bag 10/29/18 at 1247, Until 10/29/18 at 1653, Anesthesia Intra-op Given - New Bag 10/29/2018 12:47 PM CDT 10/29/2018 4:24 PM CDT 100 mcg phenylephrine in NS injection syringe Given Intravenous, INTRA-PROCEDURE MED, Starting 10/29/18 at 1546, Until 10/29/18 at 1653, Anesthesia Intra-op 100 mcg Given 10/29/2018 3:46 PM CDT 100 mcg Given 10/29/2018 3:28 PM CDT 10/29/2018 4:12 PM CDT 30,000 mcg propofol (DIPRIVAN) infusion Bolus 100 mL, INTRA-PROCEDURE MED(CONT), Starting 10/29/18 at 1427, Until 10/29/18 at 1653, Anesthesia Intra-op 30,000 mcg Bolus 10/29/2018 4:08 PM CDT 40,000 mcg Bolus 10/29/2018 4:00 PM CDT 10/29/2018 4:05 PM CDT 80 mg propofol (DIPRIVAN) injection Given INTRA-PROCEDURE MED, Starting 10/29/18 at 1448, Until 10/29/18 at 1653, Anesthesia Intra-op 50 mg Given [...]
--- OUTSIDE RECORDS SUMMARY | 2019-01-28 09:04 | XMS REPORT | Encounter Summary ---
Author Author [facility] Organization [facility] Address Unknown Phone Unavailable Care Team Providers Care Potter Or Ceramic Artist Name Role Phone Tamia Fonseca MD PCP Encounter Details Care Team Description Date Type Department Jose Whalen SRNA 10/20/2018 Anesthesia [facility] [address] [place] [id number] Anesthesia Record Responsible Anesthesiologist Anesthesia Start Time [...]
--- OUTSIDE RECORDS SUMMARY | 2019-01-28 09:04 | XMS REPORT | Encounter Summary ---
Author Author [facility] Organization [facility] Address Unknown Phone Unavailable Care Team Providers Care Legal Aid Name Role Phone Tamia Fonseca MD PCP Reason for Visit * Auth/Cert Referred By Contact Referred To Contact Status Reason Specialty Diagnoses / Procedures Diagnoses Pneumocephalus altered mental status Encounter Details Care Team Description Date Type Department Farhad Allen MD [address] [facility] 1st [facility] [id number] [place], [place] [id number] 10/23/2018 [facility] [address] [facility] [id number] [place] [address] Social History Date Tobacco Use Types Packs/Day [...] Signs Reading Time Taken Comments Vital Sign 124/68 10/23/2018 3:51 PM CDT Blood Pressure - - Pulse - - Temperature - - Respiratory Rate - - Oxygen Saturation - - Inhaled Oxygen Concentration 54.1 kg (119 lb 4.3 oz) 10/23/2018 3:51 PM CDT Weight 163 cm (5' 4.17") 10/23/2018 3:51 PM CDT Height 20.36 10/23/2018 3:51 PM CDT Body Mass Index documented in this encounter Medications at Time [...] mL through vein every 12 hours. 11/03/2018 clopiDOGrel (PLAVIX) 75 Take 75 mg [...] a 58 y.o. y.o. female. : 1960 Procedure to be performed: JYOTSNA Expected Procedure [...] 650 mg Per OG Tube Q6H PRN Kre Lorena henao MSN,KNOWLEDGE ARCHITECT 650 mg at 10/22/182029 amiodarone (CORDARONE) tablet 200 mg 200 mg Per OG Tube QDAY Lorena Rockwell, MARIBELL,KNOWLEDGE ARCHITECT 200 mg at 10/23/18 0918 aspirin chewable tablet 81 mg 81 mg Per OG Tube QDAY Lorena Rockwell, MARIBELL,A PRN 81 mg at 10/23/18 09 atorvastatin (LIPITOR) tablet 20 mg 20 mg Per OG Tube QHS Lorena Rockwell MSN,KNOWLEDGE ARCHITECT 20 mg at 10/22/182029 budesonide respule (PULMICORT) nebulizer solution 1 mg 1 mg Inhalation BID Lorena Rockwell, MARIBELL,KNOWLEDGE ARCHITECT 1 mg at 10/23/18 0813 calcium gluconate 1 g in sodium chloride 0.9% (NS) 110 mL IVPB (MB+) 1 g In travenous PRN (Finishing Powder Press Operator from Rx) Lorena Rockwell MSN,KNOWLEDGE ARCHITECT cefepime (MAXIPIME) 2 g in sodium chloride [...] mg 100 mg Per OG Tube BID Hardy Zelaya MD 100 mg at 10/22/18 0800 fentaNYL citrate PF (SUBLIMAZE) injection 25-50 mcg 25-50 mcg Intravenous Q 2H PRN Lorena Rockwell MSN,KNOWLEDGE ARCHITECT 50 mcg at 10/20/18 1430 fluconazole (DIFLUCAN) 200 mg/NS 100 mL IVPB 200 mg Intravenous Q24H* Lorena Prieto MSN,KNOWLEDGE ARCHITECT 100 mL/hr at 10/22/18 1648 200 mg at 10/22/18 1648 heparin (porcine) PF syringe 5,000 Units 5,000 Units Subcutaneous Q8H Lorena Maloney i MSN,KNOWLEDGE ARCHITECT 5,000 Units at 10/23/18 0641 ipratropium/albuterol (COMBIVENT RESPIMAT) inhaler 1 puff 1 puff Inhalation Q4H PRN Lorena Rockwell MSN,KNOWLEDGE ARCHITECT levETIRAcetam (KEPPRA) tablet 500 mg 500 mg Oral BID Pankaj Bunn MD 500 mg at 10/23/18 0918 LIDOCAINE HCL 10 MG/ML (1 %) IJ SOLN (Cabinet Override) NOW Stopped at 10/23/18 1335 magnesium sulfate 1 g/D5W 100 mL IVPB 1 g Intravenous PRN Lorena Rockwell MSN,KNOWLEDGE ARCHITECT 100 mL/hr at 10/20/18 0237 1 g at 10/20/18 0237 metoprolol tartrate (LOPRESSOR) tablet 12.5 mg 12.5 mg Per OG Tube BID Loerna Prieto MSN,KNOWLEDGE ARCHITECT 12.5 mg at 10/23/18 0918 milk of magnesia (CONC) oral suspension 10 mL 10 mL Per OG Tube QDAY Kelton Parker ch, MD 10 mL at 10/22/18 0800 nicotine (NICODERM CQ STEP 1) 21 mg/day patch 1 patch 1 patch Transdermal Q DAY(21) Lorena Rockwell MSN,KNOWLEDGE ARCHITECT 1 patch at 10/22/18 2028 oseltamivir (TAMIFLU) oral suspension 75 mg 75 mg Per NG tube BID Kelton Zelaya MD 75 mg at 10/23/18 0924 oxyCODONE (ROXICODONE) oral solution 5 mg 5 mg Per OG Tube Q4H PRN Lorena Rockwell MSN,KNOWLEDGE ARCHITECT 5 mg at 10/23/18 0641 pancrelipase 20,000 Units/ sodium bicarbonate 650 mg(#) (KU CLOG DESTROYER) for occluded feeding tube cap 1 capsule 1 capsule Feeding Tube PRN (Finishing Powder Press Operator fro m Rx) Kelton Zelaya MD pantoprazole(#) (PROTONIX) suspension 40 mg 40 mg Per NG tube QDAY(21) Kelton Duron MD 40 mg at 10/22/18 203 potassium chloride oral solution 20 mEq 20 mEq Per OG Tube QDAY Trevor Rockwell MSN,KNOWLEDGE ARCHITECT 20 mEq at 10/23/18 0918 potassium chloride SR (K-DUR) tablet 40-60 mEq 40-60 mEq Oral PRN Meagan Rockwell, MSN,KNOWLEDGE ARCHITECT Or potassium chloride oral solution 40-60 mEq 40-60 mEq Per NG tube PRN Lorena Rockwell, MSN,KNOWLEDGE ARCHITECT 40 mEq at 10/23/18 0641 propofol (DIPRIVAN) 10 mg/mL IV infusion 5-75 mcg/kg/min (Dosing Weight) In travenous TITRATE Lorena Rockwell, MSN,KNOWLEDGE ARCHITECT 8.1 mL/hr at 10/23/18 0956 25 mcg/kg /min at 10/23/18 0956 senna/docusate (SENOKOT-S) solution 10 mL 10 mL Per OG Tube BID Berna Zelaya MD 10 mL at 10/22/18 0800 sertraline (ZOLOFT) tablet 50 mg 50 mg SEE ADMIN INSTRUCTIONS QHS Meagan Rockwell MSN,KNOWLEDGE ARCHITECT 50 mg at 10/22/18 2030 sodium chloride 0.9 % infusion Intravenous Continuous Pankaj Bunn MD Stopped at 10/23/18 1234 vancomycin (VANCOCIN) 1,000 mg in dextrose 5% (D5W) 250 mL IVPB ([id number]) 1 g Intravenous Q12H* Provider, Pharmacy 250 mL/hr at 10/23/18 0919 1,000 mg at 10/23/18 0919 vancomycin, pharmacy to manage 1 each Service Per Pharmacy Jese Bunn MD Current Outpatient Medications on File [...] atrial fibrillation (HCC) Pneumothorax tripped over a AtriCure toy, had a pneumothorax, had lung surgery in hospital at [facility] Restless leg syndrome Past Surgical History [...] a 58 y.o. y.o. female. : 1960 History and Physical Exam I reviewed H&P from 10-19-18 . No changes noted. Assessment I reviewed: nurse pre-procedure assessment (including past medical history, allergies, med ications, labs) NPO status Acceptable I assessed the patient's airways and noted: Patient intubated and sedated with propofol currently in the Neuro ICU Anesthesia provided with prn boluses of sedation by critical care nurses Consent was obtained from the patient's by telephone today. Physical Status Classification ([place] [employer]esthesiologists): Per Anesthesia Sedation/Medication Plan Sedation plan per Anesthesiology Sae Bonds MD, [facility] Department of Cardiovascular Medicine [facility] Pager [phone] documented in this encounter Plan of Treatment Not on filedocumented as of this encounter Procedures Comments Procedure Name Priority Date/Time Associated Diagnosis JYOTSNA W/O CONTRAST & W/ 3D Routine 10/23/2018 ON CART 3:51 PM CDT documented in this encounter Results * TRANSESOPHAGEAL ECHOCARDIOGRAM (10/23/2018 3:51 PM CDT) Mr max bozena 6.5 m/s OTHER OUTSIDE LAB BSA 1.57 m2 OTHER OUTSIDE LAB CV ECHO PV MARI Doan; Floor RN OTHER OUTSIDE HOUSE DESIGNER LAB Cardiology Siemens [id number] OTHER OUTSIDE Ultrasound LAB Machine ECHO EF 45 % OTHER OUTSIDE LAB Radius 0.5 cm OTHER OUTSIDE LAB AV peak 1.6 m/s OTHER OUTSIDE velocity LAB Vn Nyquist 0.31 m/s OTHER OUTSIDE LAB MR ELVIA LOPEZOA 0.07 cm2 OTHER OUTSIDE LAB Specimen Narrative [...] This study was read in conjunction with social service liaison, Dr. Don Dominguez.I have personally reviewed the study and co-formulated the interpretation expressed in this report. Performing Organization Address City/State/Zipcode Phone Number OTHER OUTSIDE LAB documented in this encounter Visit Diagnoses Not on filedocumented in this encounter
--- OUTSIDE RECORDS SUMMARY | 2019-01-28 09:05 | XMS REPORT | Encounter Summary ---
Author Author [facility] Organization [facility] Address Unknown Phone Unavailable Care Team Providers Care Thread Winder Automatic Name Role Phone PCP Unavailable Encounter Details Care Team Description Date Type Department 10/17/[address] [facility] En[facility] [address] [address] Social History Date Tobacco Use Types Packs/Day [...] 10/17/2018 Diagnosis unknown EXTERNAL IMAGING 12:15 AM RANGE MECHANIC documented in this encounter Results * GENERAL RAD CHEST EXTERNAL IMAGING (10/17/2018 12:15 AM RANGE MECHANIC) Specimen Narrative Performed At This order has been auto finalized and does not contain a result. documented in this encounter Visit Diagnoses Diagnosis Diagnosis unknown Other unknown and unspecified cause of morbidity or mortality documented in this encounter
--- OUTSIDE RECORDS SUMMARY | 2019-01-28 09:05 | XMS REPORT | Encounter Summary ---
Author Author [facility] Organization [facility] Address Unknown Phone Unavailable Care Team Providers Care Grommet Man Name Role Phone PCP Unavailable Encounter Details Care Team Description Date Type Department 10/16/2018 Hospital [facility] Encounter [facility] System [address] [address] Social History Date Tobacco Use Types Packs/Day [...] 10/16/2018 Diagnosis unknown EXTERNAL IMAGING 12:30 AM FISHING GAME WARDEN documented in this encounter Results * GENERAL RAD ABDOMEN EXTERNAL IMAGING (10/16/2018 12:30 AM FISHING GAME WARDEN) Specimen Narrative Performed At This order has been auto finalized and does not contain a result. documented in this encounter Visit Diagnoses Diagnosis Diagnosis unknown Other unknown and unspecified cause of morbidity or mortality documented in this encounter
--- OUTSIDE RECORDS SUMMARY | 2019-01-28 09:05 | XMS REPORT | Encounter Summary ---
Author Author [facility] Organization [facility] Address Unknown Phone Unavailable Care Team Providers Care Legal Project Manager Name Role Phone PCP Unavailable Encounter Details Care Team Description Date Type Department 10/18/2018 Hospital [facility] Encounter Health System [address] [id number] Social History Date Tobacco Use Types Packs/Day [...] 10/18/2018 Diagnosis unknown EXTERNAL IMAGING 12:[address]PORTER documented in this encounter Results * GENERAL RAD CHEST EXTERNAL IMAGING (10/18/2018 12:[address] REPORTER) Specimen Narrative Performed At This order has been auto finalized and does not contain a result. documented in this encounter Visit Diagnoses Diagnosis Diagnosis unknown Other unknown and unspecified cause of morbidity or mortality documented in this encounter
--- OUTSIDE RECORDS SUMMARY | 2019-01-28 09:05 | XMS REPORT | Encounter Summary ---
Author Author [facility] Organization [facility] Address Unknown Phone Unavailable Care Team Providers Care Relay Repairer Name Role Phone PCP Unavailable Encounter Details Care Team Description Date Type Department 10/17/2018 Hospital [facility] Encounter Health System [address] [phone] Social History Date Tobacco Use Types Packs/Day [...] 10/17/2018 Diagnosis unknown EXTERNAL IMAGING 12:00 AM HEALTH CARE MARKETING MANAGER documented in this encounter Results * GENERAL RAD CHEST EXTERNAL IMAGING (10/17/2018 12:00 AM HEALTH CARE MARKETING MANAGER) Specimen Narrative Performed At This order has been auto finalized and does not contain a result. documented in this encounter Visit Diagnoses Diagnosis Diagnosis unknown Other unknown and unspecified cause of morbidity or mortality documented in this encounter
--- OUTSIDE RECORDS SUMMARY | 2019-01-28 09:05 | XMS REPORT | Encounter Summary ---
Author Author [facility] Organization [facility] Address Unknown Phone Unavailable Care Team Providers Care Boiler Attendant Name Role Phone PCP Unavailable Encounter Details Care Team Description Date Type Department 10/16/2018 Hospital [facility] Encounter [facility] System [address] [address] Social History Date Tobacco Use Types Packs/Day [...] 10/16/2018 Diagnosis unknown EXTERNAL IMAGING 12:15 AM PATCH SETTER documented in this encounter Results * GENERAL RAD CHEST EXTERNAL IMAGING (10/16/2018 12:15 AM PATCH SETTER) Specimen Narrative Performed At This order has been auto finalized and does not contain a result. documented in this encounter Visit Diagnoses Diagnosis Diagnosis unknown Other unknown and unspecified cause of morbidity or mortality documented in this encounter
--- OUTSIDE RECORDS SUMMARY | 2019-01-28 09:05 | XMS REPORT | Encounter Summary ---
Author Author [facility] Organization [facility] Address Unknown Phone Unavailable Care Team Providers Care Ear Muff Assembler Name Role Phone PCP Unavailable Encounter Details Care Team Description Date Type Department 10/16/2018 Hospital [facility] Encounter [facility] [address] [address] Social History Date Tobacco Use Types Packs/Day [...] IMAGING Routine 10/16/2018 Diagnosis unknown 12:00 AM FOOD ANALYST documented in this encounter Results * CT CHEST EXTERNAL IMAGING (10/16/2018 12:00 AM FOOD ANALYST) Specimen Narrative Performed At This order has been auto finalized and does not contain a result. documented in this encounter Visit Diagnoses Diagnosis Diagnosis unknown Other unknown and unspecified cause of morbidity or mortality documented in this encounter
--- OUTSIDE RECORDS SUMMARY | 2019-01-28 09:05 | XMS REPORT | Encounter Summary ---
Author Author [facility] Organization [facility] Address Unknown Phone Unavailable Care Team Providers Care Gas Pumper Name Role Phone Tamia Fonseca MD PCP Encounter Details Care Team Description Date Type Department 10/19/2018 Hospital [facility] [address] [address] Social History Date Tobacco Use Types Packs/Day [...] mL through vein every 12 hours. 11/03/2018 gabapentin (NEURONTIN) Take 800 mg 0 [...] 10/19/2018 Diagnosis unknown EXTERNAL IMAGING 6:39 PM TISSUE TECHNOLOGIST documented in this encounter Results * GENERAL RAD CHEST EXTERNAL IMAGING (10/19/2018 6:39 PM TISSUE TECHNOLOGIST) Specimen Narrative Performed At This order has been auto finalized and does not contain a result. documented in this encounter Visit Diagnoses Diagnosis Diagnosis unknown Other unknown and unspecified cause of morbidity or mortality documented in this encounter
--- OUTSIDE RECORDS SUMMARY | 2019-01-28 09:05 | XMS REPORT | Encounter Summary ---
Author Author [facility] Organization [facility] Address Unknown Phone Unavailable Care Team Providers Care Senior Sql Dba Name Role Phone Tamia Fonseca MD PCP Encounter Details Care Team Description Date Type Department 10/19/2018 Hospital [facility] [address] [address] Social History Date Tobacco Use Types Packs/Day [...] IMAGING Routine 10/19/2018 Diagnosis unknown 6:38 PM GATE CLERK documented in this encounter Results * CTA HEAD EXTERNAL IMAGING (10/19/2018 6:38 PM GATE CLERK) Specimen Narrative Performed At This order has been auto finalized and does not contain a result. documented in this encounter Visit Diagnoses Diagnosis Diagnosis unknown Other unknown and unspecified cause of morbidity or mortality documented in this encounter
--- NOTE | 2019-01-28 09:16 | ED Back Pain ---
General Chief Complaint: Back Problems Stated Complaint: LOWER BACK PAIN Nursing Triage Note: PATIENT AMB TO ROOM 3. HERE FOR CONCERNS OF BACK PAIN THAT HAS BEEN GOING ON FOR APPROX 9 DAYS. SHE STATES THAT SHE WAS LIFTING HEAVY ITEMS FOR DONATION WHEN IT FIRST STARTED. SHE HAS A HISTORY OF SCIATICA. SHE IS CURRENTLY IN CUSTODY OF HER 20 MONTH OLD GRANDDAUGHTER AND NEEDS TO BE ABLE TO LIFT HER SO SHE IS CONCERNEDTHAT IT IS NOT IMPROVING. Nursing Sepsis Screen: No Definite Risk Source of Information: Patient History of Present Illness Date Seen by Provider: Jan 28, 2019 Time Seen by Provider: 09:11 Initial Comments This 58-year-old white female presents with complaint of severe low back pain after lifting her granddaughter yesterday. Patient has had a history of sciatica in the past. She would like a muscle relaxant and pain medication until she can follow-up with her caregiver, Ky Murray, tomorrow. Patient denies loss of sensation or strength in her lower extremities. Patient denies difficulty with passing her urine or bowels. Past medical history includes bypass surgery. Allergies and Home Medications Allergies Coded Allergies: No Known Drug Allergies (Unverified , 08/23/18) Home Medications Amiodarone HCl 200 Mg Tablet, 200 MG PO DAILY, (Reported) TAKE UNTIL 10-21-18 Aspirin 81 Mg Tab.chew, 81 MG PO DAILY, (Reported) Atorvastatin Calcium 20 Mg Tablet, 20 MG PO HS, (Reported) Benzonatate 100 Mg Capsule, 200 MG PO TID PRN for COUGH, (Reported) Duloxetine HCl 30 Mg Capsule.dr, 30 MG PO BID, (Reported) Gabapentin 800 Mg Tablet, 800 MG PO QID, (Reported) Hydrocodone/Acetaminophen 1 Each Tablet, 1-2 EACH PO Q6H PRN for PAIN-MODERATE Prescribed by: CHANDRIKA BURLESON MD on 01/28/19922 Lisinopril 5 Mg Tablet, 5 MG PO DAILY, (Reported) Magnesium Oxide 400 Mg Tablet, 400 MG PO BID Prescribed by: JASON ROLON on 12/02/182106 Melatonin 5 Mg Capsule, 5 MG PO HS PRN for SLEEP, (Reported) Methocarbamol 500 Mg Tablet, 1,500 MG PO Q6-8HR PRN for BACK PAIN Prescribed by: CHANDRIKA BURLESON MD on 01/28/19922 Metoprolol Succinate 25 Mg Tab.er.24h, 25 MG PO DAILY, (Reported) Ondansetron HCl 4 Mg Tab, 8 MG PO BID PRN for NAUSEA/VOMITING-1ST LINE, (Reported) TAKES 2 (4MG) TABLETS Potassium Chloride 20 Meq Tablet.er, 20 MEQ PO DAILY Prescribed by: JASON ROLON on 12/02/182106 Sodium Hypochlorite 473 Ml Solution, TOP BID, (Reported) PACK WOUND WITH 4X4 GAUZE AND CHANGE DRESSING TWICE DAILY Varenicline Tartrate 1 Mg Tablet, 1 MG PO BID, (Reported) Patient Home Medication List Home Medication List Reviewed: Yes Review of Systems Constitutional: No chills EENTM: No ear pain Respiratory: No cough Cardiovascular: No chest pain Gastrointestinal: No abdominal pain, No nausea Genitourinary: No dysuria, No frequency Musculoskeletal: see HPI, back pain; No joint pain, No muscle weakness Skin: No change in color, No rash Psychiatric/Neurological: No Symptoms Reported Past Kxsswxt-Hhzcym-Tbwxfu Hx Past Med/Social Hx: Reviewed Nursing Past Med/Soc Hx Patient Social History Type Used: Cigarettes Former Smoker, Quit: Jul 22, 2018 2nd Hand Smoke Exposure: Yes (quit since recent hospitalization) Recent Foreign Travel: No Contact w/Someone Who Travel: No Recent Infectious Disease Expo: No Recent Hopitalizations: Yes (11/30) Immunizations Up To Date Tetanus Booster (TDap): Unknown PED Vaccines UTD: Yes Date of Pneumonia Vaccine: Jul 17, 2017 Date of Influenza Vaccine: Aug 03, 2018 Seasonal Allergies Seasonal Allergies: No Past Medical History Surgeries: Yes (CARPAL TUNNEL, OPEN HEART-4 VESSEL CABG 07/30/18) Abdominal, Cardiac, CABG, Hysterectomy, Oophorectomy, Open Heart Surgery, Orthopedic, Vascular Surgery Respiratory: Yes Asthma, Pneumonia, COPD Currently Using CPAP: No Currently Using BIPAP: No Cardiac: Yes ([place] 07/2018 WITH 4 VESSEL CABG 07/30/18) Coronary Artery Disease, Heart Attack, High Cholesterol, Hypertension Neurological: No Female 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 Disorders: Denies 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 Genitourinary: No Gastrointestinal: No Musculoskeletal: Yes (PSORIATIC ARTHRITIS) Degenerate Disk Disease, Arthritis, Chronic Back Pain Endocrine: No HEENT: Yes (EDENTULOUS, R mastoid bone removed) Cancer: No Psychosocial: No Integumentary: Yes (POST OP WOUND INFECTION TO LEGS POST CABG) Psoriasis Blood Disorders: Yes (POST OP ANEMIA 07/2018--4 UNITS OF BLOOD POST OP) Adverse Reaction/Blood Tranf: No Family Medical History No Pertinent Family Hx Physical Exam Vital Signs Vital Signs - First Documented 01/28/19 08:59 Temp 96.8 Pulse 76 Resp 18 B/P (MAP) 119/60 (79) Pulse Ox 100 O2 Delivery Room Air Capillary Refill : Less Than 3 Seconds Height, Weight, BMI Height: 5'2.00" Weight: 115lbs. 0oz. 52.120842yz; 24.9 BMI Method:Actual General Appearance: Mild Distress, Thin HEENT: Normal ENT Inspection Neck: Normal Inspection Cardiovascular: Regular Rate, Rhythm Respiratory: Normal Breath Sounds, No Respiratory Distress Gastrointestinal: Normal Bowel Sounds, Non Tender, Soft Extremity: Normal Inspection, Normal Range of Motion Neurologic/Psychiatric: No Motor/Sensory Deficits Skin: Normal Color, Warm/Dry Procedures/Interventions Date of ETT Placement: Oct 17, 2018 Time of ETT Placement: 1441 Progress/Results/Core Measures Results/Orders Vital Signs/I&O 01/28/19 08:59 Temp 96.8 Pulse 76 Resp 18 B/P (MAP) 119/60 (79) Pulse Ox 100 O2 Delivery Room Air Blood Pressure Mean: 79 Progress Progress Note : Time: 09:16 Progress Note I discussed treatment options with patient. She would like to forego radiographic evaluation at this time and received medications for her back pain. She'll follow-up with her primary caregiver tomorrow. Departure Impression Primary Impression: Back pain Qualified Codes: M54.42 - Lumbago with sciatica, left side Disposition: 01 HOME, SELF-CARE Condition: Unchanged Departure-Patient Inst. Decision time for Depature: 09:17 Referrals: [facility]/ (PCP) Primary Care Physician LAUREN MURRAY (Family) Primary Care Physician Patient Instructions: Low Back Pain (DC) Add. Discharge Instructions: Robaxin and hydrocodone today. Avoid lifting today. Follow up with emmanuelle Mueller tomorrow. Return if any problems. All discharge instructions reviewed with patient and/or family. Voiced understanding. Scripts Hydrocodone/Acetaminophen (Vicodin 5-300 mg Tablet) 1 Each Tablet 1-2 EACH PO Q6H PRN for PAIN-MODERATE MDD 10 for 7 Days, TAB Prov: CHANDRIKA BURLESON MD 01/28/19 Methocarbamol (Methocarbamol) 500 Mg Tablet 1500 MG PO Q6-8HR PRN for BACK PAIN, #14 TAB Prov: CHANDRIKA BURLESON MD 01/28/19 CHANDRIKA BURLESON MD Jan 28, 2019 09:16
[2019-01-28] MEDS ORDERED: HYDR-3455 PO (09:23)
[2019-01-28] MEDS ORDERED: METH500T7 PO (09:23)
[2019-01-28 09:43] VITALS: BP 119/60
[2019-01-28] MEDS ORDERED: KETOROLAC 30 MG/ML VIAL IM ONE (09:45)
== END 2019-01-28 09:51 | disposition home or self-care (01) ==
LOC: EDUNIT# 08:43 → ER 08:45
DX: M54.5 Low back pain (principal); J44.9 Chronic obstructive pulmonary disease, unspecified; I25.10 Atherosclerotic heart disease of native coronary artery without angina pectoris; I25.2 Old myocardial infarction; E78.00 Pure hypercholesterolemia, unspecified; I10 Essential (primary) hypertension; D64.9 Anemia, unspecified; Z79.82 Long term (current) use of aspirin; Z95.1 Presence of aortocoronary bypass graft; Z90.710 Acquired absence of both cervix and uterus; Z98.890 Other specified postprocedural states; Z87.01 Personal history of pneumonia (recurrent); Z87.891 Personal history of nicotine dependence; X50.0XXA Overexertion from strenuous movement or load, initial encounter
CPT/HCPCS: 99284

== ENCOUNTER → 2019-03-14 | Outpatient (CLI) | payer OTHER ==
[~2019-03-14] MED LIST changes: +ACHD5005 PO; +CHLO1TAB PO; +CYAN-41 PO; -DEXT1TAB PO; +DICL75TA2 PO; +ERGO50006 PO; +FOLI0.8T PO; +HYDR-3455 PO; +METH500T7 PO; +ROPI2TAB PO; +RT-ALBUTEROL SULF 2.5 MG/3 ML PRE-MIX VIAL INH ONE; +TIZA4TAB4 PO
== END ==
LOC: RT 08:48
PROVIDERS: ATTEND Surgery
DX: Z02.71 Encounter for disability determination (principal)
CPT/HCPCS: 94060; 94640; 94729

== ENCOUNTER 2019-03-25 17:49 | Inpatient (IN) | payer OTHER ==
[~2019-03-25] VITALS: Ht 154.9 cm; Wt 51.9 kg
[~2019-03-25 17:49] MED LIST changes: -ACHD5005 PO; -CYAN-41 PO; -DICL75TA2 PO; -ERGO50006 PO; -FOLI0.8T PO; -ROPI2TAB PO; -RT-ALBUTEROL SULF 2.5 MG/3 ML PRE-MIX VIAL INH ONE; -TIZA4TAB4 PO
[2019-03-25] MEDS ORDERED: NS IV 1000 ML 1,000 ML ONE ×2 (18:05→21:39)
[2019-03-25] MEDS ORDERED: NS IV 1000 ML 1,000 ML IV SCH (18:16)
--- NOTE | 2019-03-25 18:16 | ED General ---
General Chief Complaint: Respiratory Problems Stated Complaint: SOA,COUGH Nursing Triage Note: uri sighns/ symptoms x 2 weeks worse today. fever. coughing up " yellow". pt appears lethargic and weak though gcs 15. resp shallow labored. pt has congested cough in er. also c/o chest and shoulder and neck pain. pt has not did any fever management at home. Nursing Sepsis Screen: Possible Sepsis Risk Source of Information: Patient Exam Limitations: No Limitations History of Present Illness Date Seen by Provider: Mar 25, 2019 Time Seen by Provider: 18:06 Initial Comments Here with cough and congestion over the last week or 2 and worse today. Noted fever of 102F. Reports clear sputum but now turning yellow. Denies nausea or vomiting. Overall feels terrible. Does have right-sided chest and back d iscomfort and difficulty breathing. She does smoke. Timing/Duration: 1 Week, Getting Worse Severity: Moderate Associated Systoms: Chest Pain, Cough, Fever/Chills; No Nausea/Vomiting; Shortness of Air, Weakness Allergies and Home Medications Allergies Coded Allergies: No Known Drug Allergies (Unverified , 08/23/18) Home Medications Amiodarone HCl 200 Mg Tablet, 200 MG PO DAILY, (Reported) TAKE UNTIL 10-21-18 Aspirin 81 Mg Tab.chew, 81 MG PO DAILY, (Reported) Atorvastatin Calcium 20 Mg Tablet, 20 MG PO HS, (Reported) Benzonatate 100 Mg Capsule, 200 MG PO TID PRN for COUGH, (Reported) Duloxetine HCl 30 Mg Capsule.dr, 30 MG PO BID, (Reported) Gabapentin 800 Mg Tablet, 800 MG PO QID, (Reported) Hydrocodone/Acetaminophen 1 Each Tablet, 1-2 EACH PO Q6H PRN for PAIN-MODERATE Prescribed by: CHANDRIKA BURLESON MD on 01/28/19922 Lisinopril 5 Mg Tablet, 5 MG PO DAILY, (Reported) Magnesium Oxide 400 Mg Tablet, 400 MG PO BID Prescribed by: JASON ROLON on 12/02/182106 Melatonin 5 Mg Capsule, 5 MG PO HS PRN for SLEEP, (Reported) Methocarbamol 500 Mg Tablet, 1,500 MG PO Q6-8HR PRN for BACK PAIN Prescribed by: CHANDRIKA BURLESON MD on 01/28/19922 Metoprolol Succinate 25 Mg Tab.er.24h, 25 MG PO DAILY, (Reported) Ondansetron HCl 4 Mg Tab, 8 MG PO BID PRN for NAUSEA/VOMITING-1ST LINE, (Reported) TAKES 2 (4MG) TABLETS Potassium Chloride 20 Meq Tablet.er, 20 MEQ PO DAILY Prescribed by: JASON ROLON on 12/02/182106 Sodium Hypochlorite 473 Ml Solution, TOP BID, (Reported) PACK WOUND WITH 4X4 GAUZE AND CHANGE DRESSING TWICE DAILY Varenicline Tartrate 1 Mg Tablet, 1 MG PO BID, (Reported) Patient Home Medication List Home Medication List Reviewed: Yes Review of Systems Review of Systems Constitutional: see HPI; No chills; fever EENTM: nose congestion; No throat pain Respiratory: cough, short of breath Cardiovascular: no symptoms reported Gastrointestinal: No abdominal pain, No nausea, No vomiting Genitourinary: no symptoms reported Musculoskeletal: back pain; No muscle pain Skin: no symptoms reported; No change in color, No lesions Psychiatric/Neurological: No Symptoms Reported All Other Systems Reviewed Negative Unless Noted: Yes Past Nvurnxt-Hsthkv-Ozbvtx Hx Past Med/Social Hx: Reviewed Nursing Past Med/Soc Hx Patient Social History Alcohol Use: Denies Use Recreational Drug Use: No Smoking Status: Current Everyday Smoker Type Used: Cigarettes Former Smoker, Quit: Jul 22, 2018 2nd Hand Smoke Exposure: Yes (quit since recent hospitalization) Recent Foreign Travel: No Contact w/Someone Who Travel: No Recent Infectious Disease Expo: No Recent Hopitalizations: Yes (11/30) Physical Abuse: No Sexual Abuse: No Immunizations Up To Date Tetanus Booster (TDap): Unknown PED Vaccines UTD: Yes Date of Pneumonia Vaccine: Jul 17, 2017 Date of Influenza Vaccine: Aug 03, 2018 Seasonal Allergies Seasonal Allergies: No Past Medical History Surgeries: Yes (CARPAL TUNNEL, OPEN HEART-4 VESSEL CABG 07/30/18) Abdominal, Cardiac, CABG, Hysterectomy, Oophorectomy, Open Heart Surgery, Orthopedic, Vascular Surgery Respiratory: Yes Asthma, Pneumonia, COPD Currently Using CPAP: No Currently Using BIPAP: No Cardiac: Yes ([place] 07/2018 WITH 4 VESSEL CABG 07/30/18) Coronary Artery Disease, Heart Attack, High Cholesterol, Hypertension Neurological: No Female 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 Disorders: 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 Genitourinary: No Gastrointestinal: No Musculoskeletal: Yes (PSORIATIC ARTHRITIS) Degenerate Disk Disease, Arthritis, Chronic Back Pain Endocrine: No HEENT: Yes (EDENTULOUS, R mastoid bone removed) Cancer: No Psychosocial: No Integumentary: Yes (POST OP WOUND INFECTION TO LEGS POST CABG) Psoriasis Blood Disorders: Yes (POST OP ANEMIA 07/2018--4 UNITS OF BLOOD POST OP) Adverse Reaction/Blood Tranf: No Family Medical History Reviewed Nursing Family Hx No Pertinent Family Hx Physical Exam-Suspected Sepsis Physical Exam Vital Signs Vital Signs - First Documented 03/25/19 17:54 Temp 102.1 Pulse 140 Resp 36 B/P (MAP) 138/78 (98) Capillary Refill : Less Than 3 Seconds Blood Pressure Mean: 98 Height, Weight, BMI Height: 5'1.00" Weight: 115lbs. 0oz. 52.570841ou; 24.9 BMI Method:Stated General Appearance: No Apparent Distress, WD/WN HEENT: PERRL/EOMI, Pharynx Normal Neck: Non Tender, Supple Respiratory: Accessory Muscle Use, Crackles, Expiration, Wheezing Cardiovascular: No Murmur, Tachycardia Gastrointestinal: Non Tender, Soft Back: Normal Inspection, No CVA Tenderness, No Vertebral Tenderness Extremity: Normal Range of Motion, Non Tender Neurologic/Psychiatric: Alert, Oriented x3 Skin: normal color, warm/dry Focused Exam Lactate Level 03/25/19 18:10: Lactic Acid Level 1.34 Lactic Acid Level Procedures/Interventions Date of ETT Placement: Oct 17, 2018 Time of ETT Placement: 1441 Progress/Results/Core Measures Suspected Sepsis Recent Fever Within 48 Hours: Yes Infection Criteria Present: Suspected New Infection New/Unexplained Altered Menta: No Sepsis Screen: Possible Sepsis Risk SIRS Temperature:102.1 Pulse: 140 Respiratory Rate: 36 Laboratory Tests 03/25/19 18:10: White Blood Count 36.8*H Blood Pressure 138 /78 Mean: 98 03/25/19 18:10: Lactic Acid Level 1.34 Laboratory Tests 03/25/19 18:10: Creatinine 0.74, INR Comment 0.9, Platelet Count 529H, Total Bilirubin 0.4 Results/Orders Lab Results Laboratory Tests Test 03/25/19 18:10 Range/Units White Blood Count 36.8 *H 4.3-11.0 10^3/uL Red Blood Count 4.67 4.35-5.85 10^6/uL Hemoglobin 13.8 11.5-16.0 G/DL Hematocrit 41 35-52 % Mean Corpuscular Volume 87 80-99 FL Mean Corpuscular Hemoglobin 30 25-34 PG Mean Corpuscular Hemoglobin Concent 34 32-36 G/DL Red Cell Distribution Width 13.8 10.0-14.5 % Platelet Count 529 H 130-400 10^3/uL Mean Platelet Volume 9.1 7.4-10.4 FL Neutrophils (%) (Auto) 83 H 42-75 % Lymphocytes (%) (Auto) 10 L 12-44 % Monocytes (%) (Auto) 7 0-12 % Eosinophils (%) (Auto) 1 0-10 % Basophils (%) (Auto) 0 0-10 % Neutrophils # (Auto) 30.6 H 1.8-7.8 X 10^3 Lymphocytes # (Auto) 3.6 1.0-4.0 X 10^3 Monocytes # (Auto) 2.4 H 0.0-1.0 X 10^3 Eosinophils # (Auto) 0.2 0.0-0.3 10^3/uL Basophils # (Auto) 0.1 0.0-0.1 10^3/uL Neutrophils % (Manual) 87 % Lymphocytes % (Manual) 8 % Monocytes % (Manual) 1 % Eosinophils % (Manual) 2 % Basophils % (Manual) 0 % Band Neutrophils 1 % Reactive Lymphocytes 1 % Toxic Granulation 1+ Prothrombin Time 12.6 12.2-14.7 SEC INR Comment 0.9 0.8-1.4 Activated Partial Thromboplast Time 32 24-35 SEC Sodium Level 137 135-145 MMOL/L Potassium Level 4.4 3.6-5.0 MMOL/L Chloride Level 104 98-107 MMOL/L Carbon Dioxide Level 22 21-32 MMOL/L Anion Gap 11 5-14 MMOL/L Blood Urea Nitrogen 16 7-18 MG/DL Creatinine 0.74 0.60-1.30 MG/DL Estimat Glomerular Filtration Rate > 60 BUN/Creatinine Ratio 22 Glucose Level 133 H 70-105 MG/DL Lactic Acid Level 1.34 0.50-2.00 MMOL/L Calcium Level 10.2 H 8.5-10.1 MG/DL Corrected Calcium 10.0 8.5-10.1 MG/DL Total Bilirubin 0.4 0.1-1.0 MG/DL Aspartate Amino Transf (AST/SGOT) 15 5-34 U/L Alanine Aminotransferase (ALT/SGPT) 12 0-55 U/L Alkaline Phosphatase 41 40-136 U/L Troponin I < 0.028 <0.028 NG/ML Total Protein 8.1 6.4-8.2 GM/DL Albumin 4.3 3.2-4.5 GM/DL My Orders Orders - DAREN ANGELES MD Cbc With Automated Diff (03/25/19 18:16) Comprehensive Metabolic Panel (03/25/19 18:16) Blood Culture (03/25/19 18:16) Sputum Culture (03/25/19 18:16) Urinalysis (03/25/19 18:16) Urine Culture (03/25/19 18:16) Protime With Inr (03/25/19 18:16) Partial Thromboplastin Time (03/25/19 18:16) Chest 1 View, Ap/Pa Only (03/25/19 18:16) Acetaminophen Tablet (Tylenol Tablet) (03/25/19 18:30) Ed Iv/Invasive Line Start (03/25/19 18:16) Ed Iv/Invasive Line Start (03/25/19 18:16) Ekg Tracing (03/25/19 18:16) Troponin I (03/25/19 18:16) Vital Signs Adult Sepsis Patie Q15M (03/25/19 18:16) O2 (03/25/19 18:16) Remove Rings In Anticipation O (03/25/19 18:16) Lactic Acid Analyzer (03/25/19 18:16) Ns Iv 1000 Ml (Sodium Chloride 0.9%) (03/25/19 18:16) Manual Differential (03/25/19 18:10) Ed Iv/Invasive Line Start (03/25/19 19:22) Ns Iv 1000 Ml (Sodium Chloride 0.9%) (03/25/19 19:22) Ns Iv 1000 Ml (Sodium Chloride 0.9%) (03/25/19 21:39) Ketorolac Injection (Toradol Injection) (03/25/19 22:08) Cefepime Injection (Maxipime Injection) (03/25/19 22:15) Medications Given in ED Current Medications Medications Dose Ordered Sig/Lance Route Start Time Stop Time Status Last Admin Dose Admin Acetaminophen 1,000 mg ONCE PRN PO 03/25/19 18:30 03/25/19 18:30 DC 03/25/19 18:23 1,000 MG Sodium Chloride 1,000 ml @ 0 mls/hr Q0M ONCE IV 03/25/19 19:22 03/25/19 19:23 DC 03/25/19 21:40 0 MLS/HR Vital Signs/I&O 03/25/19 17:54 Temp 102.1 Pulse 140 Resp 36 B/P (MAP) 138/78 (98) Capillary Refill : Less Than 3 Seconds Blood Pressure Mean: 98 Progress Note : Progress Note Seen and evaluated. IV, labs, EKG, chest x-ray, blood cultures, sputum culture, UA and lactic acid ordered. Normal saline 1 L bolus. Acetaminophen 1 g by mouth ordered. Monitor patient. 2215: I discussed the case with Dr. Radford. I am concerned about right-sided pneumonia. Patient does have elevated white count. She is given urine sample now. Cefepime 2 g IV. She also has right-sided chest pain. Toradol 30 mg IV ordered. I did discuss the case with Dr. Radford and she accepts patient for admission. She requests consult with Dr. Ramirez and Dr. Mckenzie which I will place for them to call in the morning. Eyes concerns discussed with the patient who agrees with plan. Admit, inpatient status. ECG Initial ECG Impression Date: Mar 25, 2019 Initial ECG Impression Time: 18:32 Initial ECG Rate: 115 Initial ECG Rhythm: S.Tach Comment Sinus tachycardia with rightward axis. No evidence of ST elevation VT. Similar to previous but faster rate from 10/19/18. Interpreted by me. Diagnostic Imaging Diagonstic Imaging: Xray Plain Films/CT/US/NM/MRI: chest Comments [facility] [place], [place] NAME: ETELVINA ALONSO [facility] REC#: [id number] PT STATUS: REG ER : 1960 PHYSICIAN: DAREN ANGELES MD ADMIT DATE: 03/25/19/ER Draft Date of Exam:03/25/19 CHEST 1 VIEW, AP/PA ONLY INDICATION: Dyspnea, fever and productive cough Upright portable AP view of the chest is obtained with comparison made to the study of 10/19/2018. Heart size is within normal limits. Pulmonary vascularity is at the upper limits of normal. There is air trapping bilaterally. There is mild right basilar atelectasis and/or pneumonitis. IMPRESSION: Mild right basilar atelectasis and/or pneumonitis with pulmonary vascularity at the upper limits of normal. Dictated on workstation # [id number] Dict: 03/25/191919 Trans: 03/25/19 [address] [facility] [id number] Interpreted by: JAYDEN LUND MD Electronically signed by: Departure Communication (Admissions) Time/Spoke to Admitting Phy: 22:13 Impression Primary Impression: Right lower lobe pneumonia Qualified Codes: J18.1 - Lobar pneumonia, unspecified organism Additional Impression: Chest pain Qualified Codes: R07.9 - Chest pain, unspecified Disposition: ADMITTED INPATIENT Condition: Stable Admissions Decision to Admit Reason: Admit from ER (General) Decision to Admit/Date: Mar 25, 2019 Time/Decision to Admit Time: 22:13 Departure-Patient Inst. Ref[place]: [facility] [place] [facility] [place] Primary Care Physician LAUREN BAIRD (Family) Primary Care Physician DAREN ANGELES MD Mar 25, 2019 18:16
[2019-03-25 18:27] LABS: BASOPHILS # (AUTO) 0.1 10^3/uL (0.0-0.1); BASOPHILS % (AUTO) 0 % (0-10); EOSINOPHILS # (AUTO) 0.2 10^3/uL (0.0-0.3); EOSINOPHILS % (AUTO) 1 % (0-10); HEMATOCRIT 41 % (35-52); HEMOGLOBIN 13.8 G/DL (11.5-16.0); LYMPHOCYTES # (AUTO) 3.6 X 10^3 (1.0-4.0); LYMPHOCYTES % (AUTO) 10 % (12-44); MEAN CORPUSCULAR HEMOGLOBIN 30 PG (25-34); MEAN CORPUSCULAR HGB CONC 34 G/DL (32-36); MEAN CORPUSCULAR VOLUME 87 FL (80-99); MEAN PLATELET VOLUME 9.1 FL (7.4-10.4); MONOCYTES # (AUTO) 2.4 X 10^3 (0.0-1.0); MONOCYTES % (AUTO) 7 % (0-12); NEUTROPHILS # (AUTO) 30.6 X 10^3 (1.8-7.8); NEUTROPHILS % (AUTO) 83 % (42-75); PLATELET COUNT 529 10^3/uL (130-400); RED CELL DISTRIBUTION WIDTH 13.8 % (10.0-14.5)
[2019-03-25] MEDS ORDERED: ACETAMINOPHEN 500 MG TAB (TYLENOL) PO PRN ×2 (18:30→23:45)
[2019-03-25 18:34] LABS: WHITE BLOOD COUNT 36.8 10^3/uL (4.3-11.0)
[2019-03-25 18:40] LABS: BUN/CREATININE RATIO 22; CARBON DIOXIDE 22 MMOL/L (21-32); CHLORIDE 104 MMOL/L (98-107); CREATININE SERUM 0.74 MG/DL (0.60-1.30); POTASSIUM 4.4 MMOL/L (3.6-5.0); SODIUM 137 MMOL/L (135-145)
[2019-03-25 18:41] LABS: ALANINE AMINOTRANSFERASE 12 U/L (0-55); ALBUMIN 4.3 GM/DL (3.2-4.5); ALKALINE PHOSPHATASE 41 U/L (40-136); BILIRUBIN,TOTAL 0.4 MG/DL (0.1-1.0); CALCIUM 10.2 MG/DL (8.5-10.1); GFR ESTIMATED > 60; GLUCOSE 133 MG/DL (70-105); INR 0.9 (0.8-1.4); PROTHROMBIN TIME PATIENT 12.6 SEC (12.2-14.7); TOTAL PROTEIN 8.1 GM/DL (6.4-8.2)
[2019-03-25 18:45] LABS: BAND NEUTROPHILS 1 %; EOSINOPHILS % (MANUAL) 2 %; LYMPHOCYTES % (MANUAL) 8 %; MONOCYTES % (MANUAL) 1 %; NEUTROPHILS % (MANUAL) 87 %
[2019-03-25 18:46] LABS: BASOPHILS % (MANUAL) 0 %; REACTIVE LYMPHOCYTES 1 %; TOXIC GRANULATION/VACUOLAZATIO 1+
[2019-03-25] MEDS ORDERED: NS IV 1000 ML 1,000 ML IV ONE (19:22)
--- NOTE | 2019-03-25 19:25 | Diagnostic Imaging Report ---
INDICATION: Dyspnea, fever and productive cough Upright portable AP view of the chest is obtained with comparison made to the study of 10/19/2018. Heart size is within normal limits. Pulmonary vascularity is at the upper limits of normal. There is air trapping bilaterally. There is mild right basilar atelectasis and/or pneumonitis. IMPRESSION: Mild right basilar atelectasis and/or pneumonitis with pulmonary vascularity at the upper limits of normal. Dictated by: Dictated on workstation # [id number]
[2019-03-25] MEDS ORDERED: KETOROLAC 30 MG/ML VIAL IVP STA (22:08)
[2019-03-25] MEDS ORDERED: CEFEPIME INJECTION 2,000 MG in WATER (STERILE) FOR INJECTION 20 ML IV ONE (22:15)
[2019-03-25 22:23] LABS: BILIRUBIN,URINE NEGATIVE (NEGATIVE); CLARITY,URINE CLEAR; COLOR,URINE YELLOW; GLUCOSE, URINE (UA) NEGATIVE (NEGATIVE); KETONES,URINE NEGATIVE (NEGATIVE); LEUKOCYTE ESTERASE ,URINE NEGATIVE (NEGATIVE); NITRITE,URINE NEGATIVE (NEGATIVE); PH,URINE 7 (5-9); PROTEIN,URINE NEGATIVE (NEGATIVE); UROBILINOGEN,URINE NORMAL (NORMAL)
[2019-03-25] MEDS ORDERED: CEFEPIME 2 GM (MAXIPIME) VIAL ONE (22:23)
[2019-03-25] MEDS ORDERED: WATER (STERILE) FOR INJECTION 20 ML ONE (22:25)
[2019-03-25 22:30] LABS: BACTERIA,URINE TRACE /HPF
[2019-03-25] MEDS ORDERED: rOPINIRole 1 MG (REQUIP) TABLET PO ONE (23:00)
--- NOTE | 2019-03-25 23:05 | NUR ---
ETELVINA ALONSO admitted to room 414-1, with an admitting diagnosis of CHEST PAIN AND PNEUMONIA, on 03/25/19 from ED via WC, accompanied by STAFF.ETELVINA ALONSO introduced to surroundings, call light, bed controls, phone, TV, temperature control, lights, meal times, smoking policy, visitor policy, side rail policy, bathrooms and showers. Patient Rights given to patient in the handbook. ETELVINA ALONSO verbalizes understanding that [facility] is not responsible for the loss or damage to any personal effects or valuables that are kept in the patients posession during their hospitalization. PATIENT CARE PLAN DISCUSSED WITH PT VERBALZIED UNDERSTANDING ETELVINA ALONSO verbalizes understanding of Interdisciplinary Patient Education. Patient and/or family were informed about the Rapid Response Team and its purpose.
[2019-03-25 23:14] VITALS: BP 117/83
[2019-03-26] VITALS (8 sets, daily range): BP systolic 117–155; BP diastolic 58–83
[2019-03-26] MEDS: NS IV 1000 ML 1,000 ML IV SCH ×2 (00:18→18:43)
[2019-03-26 05:58] LABS: BASOPHILS # (AUTO) 0.1 10^3/uL (0.0-0.1); BASOPHILS % (AUTO) 0 % (0-10); EOSINOPHILS # (AUTO) 0.2 10^3/uL (0.0-0.3); EOSINOPHILS % (AUTO) 1 % (0-10); HEMATOCRIT 36 % (35-52); HEMOGLOBIN 11.8 G/DL (11.5-16.0); LYMPHOCYTES % (AUTO) 11 % (12-44); MEAN CORPUSCULAR HEMOGLOBIN 29 PG (25-34); MEAN CORPUSCULAR HGB CONC 33 G/DL (32-36); MEAN CORPUSCULAR VOLUME 89 FL (80-99); MEAN PLATELET VOLUME 9.5 FL (7.4-10.4); MONOCYTES # (AUTO) 1.5 X 10^3 (0.0-1.0); MONOCYTES % (AUTO) 5 % (0-12); NEUTROPHILS # (AUTO) 23.5 X 10^3 (1.8-7.8); NEUTROPHILS % (AUTO) 83 % (42-75); PLATELET COUNT 441 10^3/uL (130-400); RED CELL DISTRIBUTION WIDTH 13.8 % (10.0-14.5); WHITE BLOOD COUNT 28.4 10^3/uL (4.3-11.0)
[2019-03-26 06:22] LABS: ALANINE AMINOTRANSFERASE 10 U/L (0-55); ALBUMIN 3.2 GM/DL (3.2-4.5); ALKALINE PHOSPHATASE 38 U/L (40-136); BILIRUBIN,TOTAL 0.5 MG/DL (0.1-1.0); BUN/CREATININE RATIO 19; CALCIUM 9.1 MG/DL (8.5-10.1); CARBON DIOXIDE 19 MMOL/L (21-32); CHLORIDE 112 MMOL/L (98-107); CREATININE SERUM 0.62 MG/DL (0.60-1.30); GFR ESTIMATED > 60; GLUCOSE 108 MG/DL (70-105); POTASSIUM 4.2 MMOL/L (3.6-5.0); SODIUM 142 MMOL/L (135-145); TOTAL PROTEIN 6.1 GM/DL (6.4-8.2)
[2019-03-26] MEDS: morphine INJ 4 MG/ML 1 ML (VIAL/SYRINGE) IV PRN ×5 (06:40→22:34)
--- NOTE | 2019-03-26 07:53 | Consultation-Cardiology ---
HPI-Cardiology Cardiology Consultation Date of Consultation 03/26/19 Date of Admission Time Seen by Provider: 07:48 Indication: Chest pain HPI 58 years old lady with history of coronary artery disease, multiple hospitalization for pneumonia, thought to have fever and chills, cough and shortness of breath, came into the emergency room and admitted with pneumonia, has been having right-sided chest pain reproducible by palpating her chest and by taking deep breath. No syncope or near syncopal episodes, no previous chest pain prior to that episode. No pedal edema, no claudication. Patient is still an active smoker Home Medications & Allergies Allergies: Coded Allergies: No Known Drug Allergies (Unverified , 08/23/18) Home Medication List Reviewed: Yes MMB-Gtpljn-Kfqscv Hx Patient Social History Employed/Student: unemployed Alcohol Use: Denies Use Recreational Drug Use: No Smoking Status: Current Everyday Smoker Type Used: Cigarettes 2nd Hand Smoke Exposure: Yes (quit since recent hospitalization) Recent Foreign Travel: No Recent Infectious Disease Expo: No Recent Hopitalizations: Yes (11/30) Immunizations Up To Date Tetanus Booster (TDap): Unknown Date of Pneumonia Vaccine: Jul 17, 2017 Date of Influenza Vaccine: Aug 03, 2018 Past Medical History Discussed below Family Medical History Significant Family History: No Pertinent Family Hx Family Medical Hx Noncontributory to her current condition Review of Systems-General Review of Systems Constitutional: see HPI; No chills; fever, weakness EENTM: see HPI, nose congestion; No throat pain Respiratory: see HPI, cough, dyspnea on exertion, phlegm, short of breath Cardiovascular: see HPI, chest pain; No edema, No Hx of Intervention, No palpitations, No syncope, No vascular heart diseas, No other Gastrointestinal: see HPI; No abdominal pain, No nausea, No vomiting Genitourinary: see HPI Musculoskeletal: see HPI, back pain; No muscle pain Skin: no symptoms reported, see HPI; No change in color, No lesions Psychiatric/Neurological: No Symptoms Reported, See HPI All Other Systems Reviewed Negative Unless Noted: Yes Reviewed Test Results Reviewed Test Results Lab Laboratory Tests Test 03/25/19 18:10 03/25/19 22:15 03/26/19 05:15 Range/Units White Blood Count 36.8 *H 28.4 H 4.3-11.0 10^3/uL Red Blood Count 4.67 4.01 L 4.35-5.85 10^6/uL Hemoglobin 13.8 11.8 11.5-16.0 G/DL Hematocrit 41 36 35-52 % Mean Corpuscular Volume 87 89 80-99 FL Mean Corpuscular Hemoglobin 30 29 25-34 PG Mean Corpuscular Hemoglobin Concent 34 33 32-36 G/DL Red Cell Distribution Width 13.8 13.8 10.0-14.5 % Platelet Count 529 H 441 H 130-400 10^3/uL Mean Platelet Volume 9.1 9.5 7.4-10.4 FL Neutrophils (%) (Auto) 83 H 83 H 42-75 % Lymphocytes (%) (Auto) 10 L 11 L 12-44 % Monocytes (%) (Auto) 7 5 0-12 % Eosinophils (%) (Auto) 1 1 0-10 % Basophils (%) (Auto) 0 0 0-10 % Neutrophils # (Auto) 30.6 H 23.5 H 1.8-7.8 X 10^3 Lymphocytes # (Auto) 3.6 3.0 1.0-4.0 X 10^3 Monocytes # (Auto) 2.4 H 1.5 H 0.0-1.0 X 10^3 Eosinophils # (Auto) 0.2 0.2 0.0-0.3 10^3/uL Basophils # (Auto) 0.1 0.1 0.0-0.1 10^3/uL Neutrophils % (Manual) 87 % Lymphocytes % (Manual) 8 % Monocytes % (Manual) 1 % Eosinophils % (Manual) 2 % Basophils % (Manual) 0 % Band Neutrophils 1 % Reactive Lymphocytes 1 % Toxic Granulation 1+ Prothrombin Time 12.6 12.2-14.7 SEC INR Comment 0.9 0.8-1.4 Activated Partial Thromboplast Time 32 24-35 SEC Sodium Level 137 142 135-145 MMOL/L Potassium Level 4.4 4.2 3.6-5.0 MMOL/L Chloride Level 104 112 H 98-107 MMOL/L Carbon Dioxide Level 22 19 L 21-32 MMOL/L Anion Gap 11 11 5-14 MMOL/L Blood Urea Nitrogen 16 12 7-18 MG/DL Creatinine 0.74 0.62 0.60-1.30 MG/DL Estimat Glomerular Filtration Rate > 60 > 60 BUN/Creatinine Ratio 22 19 Glucose Level 133 H 108 H 70-105 MG/DL Lactic Acid Level 1.34 0.50-2.00 MMOL/L Calcium Level 10.2 H 9.1 8.5-10.1 MG/DL Corrected Calcium 10.0 9.7 8.5-10.1 MG/DL Total Bilirubin 0.4 0.5 0.1-1.0 MG/DL Aspartate Amino Transf (AST/SGOT) 15 9 5-34 U/L Alanine Aminotransferase (ALT/SGPT) 12 10 0-55 U/L Alkaline Phosphatase 41 38 L 40-136 U/L Troponin I < 0.028 < 0.028 <0.028 NG/ML Total Protein 8.1 6.1 L 6.4-8.2 GM/DL Albumin 4.3 3.2 3.2-4.5 GM/DL Urine Color YELLOW Urine Clarity CLEAR Urine pH 7 5-9 Urine Specific Blunt 1.005 L 1.016-1.022 Urine Protein NEGATIVE NEGATIVE Urine Glucose (UA) NEGATIVE NEGATIVE Urine Ketones NEGATIVE NEGATIVE Urine Nitrite NEGATIVE NEGATIVE Urine Bilirubin NEGATIVE NEGATIVE Urine Urobilinogen NORMAL NORMAL MG/DL Urine Leukocyte Esterase NEGATIVE NEGATIVE Urine RBC (Auto) NEGATIVE NEGATIVE Urine RBC NONE /HPF Urine WBC NONE /HPF Urine Squamous Epithelial Cells 2-5 /HPF Urine Crystals NONE /LPF Urine Bacteria TRACE /HPF Urine Casts NONE /LPF Urine Mucus NEGATIVE /LPF Urine Culture Indicated CULTURE PENDING Physical Exam Physical Exam Vital Signs Vital Signs - First Documented 03/25/19 03/25/19 17:54 23:00 Temp 102.1 Pulse 140 Resp 36 B/P (MAP) 138/78 (98) Pulse Ox 96 O2 Delivery Room Air Capillary Refill : Less Than 3 Seconds Height, Weight, BMI Height: 5'1.00" Weight: 114lbs. 6.0oz. 51.824016rx; 21.6 BMI Method:Stated General Appearance: WD/WN, Mild Distress HEENT: PERRL/EOMI, TMs Normal, Normal ENT Inspection, Pharynx Normal Neck: Non Tender, Supple, Carotid Bruit Respiratory: Crackles, Decreased Breath Sounds, Expiration, Wheezing Cardiovascular: Regular Rate, Rhythm, No Murmur, Tachycardia Gastrointestinal: Non Tender, Soft Back: Normal Inspection, No Vertebral Tenderness Extremity: Normal Range of Motion, Non Tender Neurologic/Psychiatric: Alert, Oriented x3 Skin: Normal Color, Warm/Dry Lymphatic: No Adenopathy A/P-Cardiology Admission Diagnosis Pneumonia Coronary artery disease Hypertension Hyperlipidemia Assessment/Plan Right sided pneumonia, admitted and started on cefepime, managed by primary care team Chest pain, skeletal skeletal nature, unlikely to be cardiac, reproducible, EKG did not show any acute abnormality. Coronary artery disease, history of CABG 4 done in July 2018, continue to monitor History of congestive heart failure with left ventricular diastolic dysfunction, currently chronic compensated systolic dysfunction. Continue to monitor Paroxysmal atrial fibrillation, currently in sinus rhythm. Continue to monitor COPD followed and managed by Dr. Ramirez Hypertension, blood pressure controlled, continue to monitor blood pressure Hyperlipidemia, maintained on Lipitor restarted medication Tobaccoism, dictated on smoking cessation Clinical Quality Measures DVT/VTE Risk/Contraindication: Risk Factor Score Per Nursin RFS Level Per Nursing on Admit: 3=High SUPA MCMANUS MD Mar 26, 2019 07:53
--- NOTE | 2019-03-26 08:32 | Pulmonary Consultation ---
History of Present Illness History of Present Illness Date of Consultation 03/26/19 08:29 Time Seen by Provider: 08:29 Date of Admission Reason for Visit: Chest pain History of Present Illness 58yo presented to Ed secondary to worsening SOB, fever 102, cough with yellow sputum production. Upon ED admission pt was lethargic and weak. Onset was 2 wks ago. Denies N/V/D. I am consulted for pulmonary management. Allergies and Home Medications Allergies Coded Allergies: No Known Drug Allergies (Unverified , 08/23/18) Home Medications Atorvastatin Calcium 20 Mg Tablet, 40 MG PO HS, (Reported) LAST RECEIVED FROM REPOSITORY #90 12-05-18 Cyanocobalamin (Vitamin B-12) 1,000 Mcg Tablet, 1,000 MCG PO DAILY, (Reported) Diclofenac Sodium 75 Mg Tablet.dr, 75 MG PO BID PRN for ARTHRITIS PAIN, (Re ported) Ergocalciferol (Vitamin D2) 50,000 Unit Capsule, 50,000 UNIT PO Fr, (Reported) Folic Acid 0.8 Mg Tablet, 0.8 MG PO DAILY, (Reported) Gabapentin 800 Mg Tablet, 800 MG PO QID, (Reported) Lisinopril 5 Mg Tablet, 5 MG PO DAILY, (Reported) LAST RECEIVED FROM REPOSITORY 12-05-18 #90 Melatonin 5 Mg Capsule, 5 MG PO HS PRN for SLEEP, (Reported) Metoprolol Succinate 25 Mg Tab.er.24h, 25 MG PO DAILY, (Reported) Ondansetron HCl 4 Mg Tab, 8 MG PO BID PRN for NAUSEA/VOMITING-1ST LINE, (Reported) TAKES 2 (4MG) TABLETS Ropinirole HCl 2 Mg Tab.er.24h, 2 MG PO 1900, (Reported) Sertraline HCl 50 Mg Tablet, 50 MG PO DAILY, (Reported) LAST FILLED #30 02-21-19 Tizanidine HCl 4 Mg Tablet, 4 MG PO TID PRN for MUSCLE SPASMS, (Reported) Past Kwemlxy-Opgggn-Htyrsx Hx Past Med/Social Hx: Reviewed Nursing Past Med/Soc Hx Patient Social History Alcohol Use: Denies Use Recreational Drug Use: No Smoking Status: Current Everyday Smoker Type Used: Cigarettes Former Smoker, Quit: Jul 22, 2018 2nd Hand Smoke Exposure: Yes (quit since recent hospitalization) Recent Foreign Travel: No Contact w/Someone Who Travel: No Recent Infectious Disease Expo: No Recent Hopitalizations: Yes (11/30) Physical Abuse: No Sexual Abuse: No Immunizations Up To Date Tetanus Booster (TDap): Unknown PED Vaccines UTD: Yes Date of Pneumonia Vaccine: Jul 17, 2017 Date of Influenza Vaccine: Aug 03, 2018 Seasonal Allergies Seasonal Allergies: No Past Medical History Surgeries: Yes (CARPAL TUNNEL, OPEN HEART-4 VESSEL CABG 07/30/18) Abdominal, Cardiac, CABG, Hysterectomy, Oophorectomy, Open Heart Surgery, Orthopedic, Vascular Surgery Respiratory: Yes Asthma, Pneumonia, COPD Currently Using CPAP: No Currently Using BIPAP: No Cardiac: Yes ([place] 07/2018 WITH 4 VESSEL CABG 07/30/18) Coronary Artery Disease, Heart Attack, High Cholesterol, Hypertension Neurological: No Female 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 Disorders: Denies [employer] History: Hysterectomy Genitourinary: No Gastrointestinal: No Musculoskeletal: Yes (PSORIATIC ARTHRITIS) Degenerate Disk Disease, Arthritis, Chronic Back Pain Endocrine: No HEENT: Yes (EDENTULOUS, R mastoid bone removed) Cancer: No Psychosocial: No Integumentary: Yes (POST OP WOUND INFECTION TO LEGS POST CABG) Psoriasis Blood Disorders: Yes (POST OP ANEMIA 07/2018--4 UNITS OF BLOOD POST OP) Adverse Reaction/Blood Tranf: No Family Medical History Reviewed Nursing Family Hx No Pertinent Family Hx Sepsis Event Evaluation Height, Weight, BMI Height: 5'1.00" Weight: 114lbs. 6.0oz. 51.865720bs; 21.6 BMI Method:Stated Exam Exam Vital Signs Date Time Temp Pulse Resp B/P (MAP) Pulse Ox O2 Delivery O2 Flow Rate FiO2 03/26/19 08:00 99.4 95 18 127/58 (81) 95 Room Air 03/26/19 07:00 82 03/26/19 03:45 97.9 80 20 148/77 (100) 99 Room Air 03/26/19 00:36 94 03/26/19 00:31 98.0 95 22 117/83 (94) 97 Room Air 03/26/19 00:29 98.0 95 23 117/83 (94) 97 Room Air 03/26/19 00:00 Room Air 03/25/19 23:14 98.0 95 23 117/83 97 Room Air 03/25/19 23:00 97.3 88 18 114/66 (82) 96 Room Air 03/25/19 17:54 102.1 140 36 138/78 (98) I & O 03/26/19 07:00 Intake Total 2120 ml Output Total 400 ml Balance 1720 ml Height & Weight Height: 5'1.00" Weight: 114lbs. 6.0oz. 51.159988lo; 21.6 BMI Method:Stated General Appearance: WD/WN, Mild Distress HEENT: PERRL/EOMI, TMs Normal, Normal ENT Inspection, Pharynx Normal Neck: Non Tender, Supple, Carotid Bruit Respiratory: Crackles, Decreased Breath Sounds, Expiration, Wheezing Cardiovascular: Regular Rate, Rhythm, No Murmur, Tachycardia Capillary Refill: Less Than 3 Seconds Extremity: Normal Range of Motion, Non Tender Neurologic/Psychiatric: Alert, Oriented x3 Skin: Normal Color, Warm/Dry Lymphatic: No Adenopathy Results Lab Laboratory Tests 03/25/19 18:10 03/26/19 05:15 Assessment/Plan Assessment/Plan Right sided PNA -Currently on Cefepime -Cultures are negative COPDAE Tobacco use -education CT scan from 10/30 showed RUL infiltrate and mediastinal lymphadenopathy -Pt will need repeat CT scan 8 wks after Abx -Strong consideration for bronchoscopy now vs after repeat CT of chest. Hx of CAD with CABG TATE JACKSON DO Mar 26, 2019 08:32
[2019-03-26] MEDS ORDERED: ROPI2TAB PO (09:17)
[2019-03-26] MEDS ORDERED: DICL75TA2 PO (09:17)
[2019-03-26] MEDS ORDERED: TIZA4TAB4 PO (09:17)
[2019-03-26] MEDS ORDERED: ERGO50006 PO (09:20)
[2019-03-26] MEDS ORDERED: SERT50TA9 PO (09:20)
[2019-03-26] MEDS ORDERED: CYAN-41 PO (09:24)
[2019-03-26] MEDS ORDERED: FOLI0.8T PO (09:24)
[2019-03-26] MEDS: CEFEPIME INJECTION 2,000 MG in WATER (STERILE) FOR INJECTION 20 ML IV SCH ×2 (09:59→21:42)
[2019-03-26] MEDS: NICOTINE 21 MG (NICODERM) PATCH TD SCH (10:04)
--- NOTE | 2019-03-26 10:28 | NUR ---
SPOKE WITH THE PATIENT ABOUT HER MEDICATIONS. I CALLED [facility] FOR A LIST OF RECENTLY FILLED MEDICATIONS AND WENT OVER THAT WITH HER. SHE ALSO LISTED HER MEDICATIONS. [facility] FILLED: 03-26-19 ROPINIROLE ER 2MG DAILY 03-21-19 TIZANIDINE 4MG TID PRN 03-07-19 DICLOFENAC 75MG BID #60 (TAKES PRN) 02-21-19 ZOLOFT 50MG DAILY #30 02-06-19 HYDROCODONE 5-325MG Q6 HOURS 6 DAY SUPPLY (NO LONGER TAKING) 01-31-19 ZOFRAN 4MG 2 BID PRN 01-25-19 ERGOCALCIFEROL 50,000 WEEKLY 84 DAY SUPPLY SHE STATES SHE ALSO TAKES LIPITOR, METOPROLOL, AND LISINOPRIL AND RECEIVES THEM FROM THE REPOSITORY. I CALLED AND SPOKE WITH A NURSE AT [facility] THAT VERIFIED THE FOLLOWING FROM REPOSITORY: 12-05-18 METOPROLOL SUCCINATE 25MG DAILY #180 12-05-18 LIPITOR 20MG HS #90 (PATIENT STATES SHE TAKES 2 TABS NOW) 12-05-18 LISINOPRIL 5MG DAILY #90 [facility] FILLED: 03-23-19 GABAPENTIN 800MG QID #120 OTC MEDICATIONS: MELATONIN PRN B 12 DAILY FOLIC ACID DAILY
--- NOTE | 2019-03-26 10:42 | Diagnostic Imaging Report ---
Portable erect AP chest at 403 hours. INDICATION: Chest pain. FINDINGS: The mild cardiomegaly and sternal wires noted on the prior exam of 03/25/2019 are again visualized and no different. There is persistent involvement of the right lung base by atelectasis/infiltrate. However, the right lung base may be slightly better aerated than on the prior exam. The right hilum remains prominent. The upper lungs are generally clear as is the left lung base. The mediastinum is not widened. The osseous structures are intact. IMPRESSION: There is persistent involvement of the right lung base by pneumonia/atelectasis. The right lower lobe may be slightly better aerated than on the prior exam. A followup study would be recommended for continued evaluation. Dictated by: Dictated on workstation # [id number]
--- NOTE | 2019-03-26 11:24 | History & Physical-Hospitalist ---
DONAVON REA, 03/26/19 1124: History of Present Illness HPI/Chief Complaint CC: nasal and lung congestion HPI: started 2 weeks ago. Yesterday had more phlegm and noticed it was yellow. Temp at ED 102. Nothing has made it worse or better. Does c/o pain on right flank and up into shoulder blade. Coughing a lot. States it's difficult to swallow food and liquids. PCP is Dr. Murray at PCP Source: patient Exam Limitations: no limitations Date Seen 03/26/19 Time Seen by a Provider: 07:40 Attending Physician Britni Eaton DO [facility] Referring Physician Date of Admission Mar 25, 2019 at 22:13 Home Medications & Allergies Home Medications Reviewed patient Home Medication Reconciliation performed by pharmacy medication reconciliations copier field service technician and/or nursing. Patients Allergies have been reviewed. Allergies Allergies Coded Allergies No Known Drug Allergies (Unverified08/23/18) Past Epbjjez-Fiwhza-Wjrsxq Hx Past Med/Social Hx: Reviewed Nursing Past Med/Soc Hx Patient Social History Marrital Status: Employed/Student: unemployed Alcohol Use: Denies Use Recreational Drug Use: No Smoking Status: Current Everyday Smoker Former Smoker, Quit: Jul 22, 2018 Type Used: Cigarettes 2nd Hand Smoke Exposure: Yes (quit since recent hospitalization) Recent Foreign Travel: No Contact w/other who traveled: No Recent Hopitalizations: Yes (11/30) Recent Infectious Disease Expo: No Immunizations Up To Date Tetanus Booster (TDap): Unknown Pediatric: Yes Date of Pneumonia Vaccine: Jul 17, 2017 Date of Influenza Vaccine: Aug 03, 2018 Seasonal Allergies Seasonal Allergies: No Past Medical History Surgeries: Abdominal, Cardiac, CABG, Hysterectomy, Oophorectomy, Open Heart Surgery, Orthopedic, Vascular Surgery Respiratory: Emphysema, Pneumonia Currently Using CPAP: No Currently Using BIPAP: No Cardiac: Coronary Artery Disease, Heart Attack, High Cholesterol, Hypertension : No Female 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 Disorders: Denies Hysterectomy Musculoskeletal: Degenerate Disk Disease, Arthritis, Chronic Back Pain Psychosocial: Anxiety, Depression Skin/Integumentary: Psoriasis History of Blood Disorders: Yes (POST OP ANEMIA 07/2018--4 UNITS OF BLOOD POST OP) Adverse Reaction to Blood Nettles: No Family History Reviewed Nursing Family Hx Diabetes (brother, sister, paternal grandmother), Hypertension (brother and sister) Review of Systems Constitutional: No chills; fever EENTM: nose congestion; No throat pain, No throat swelling Respiratory: cough, short of breath, wheezing Cardiovascular: chest pain Gastrointestinal: dysphagia (solids and liquids); No nausea, No vomiting Genitourinary: no symptoms reported Musculoskeletal: see HPI Skin: no symptoms reported Psychiatric/Neurological: Anxiety, Depressed, Headache, Weakness (carpal tunnel surgery bilaterally) All Other Systems Reviewed Negative Unless Noted: Yes Physical Exam Physical Exam Vital Signs Vital Signs - First Documented 03/25/19 03/25/19 17:54 23:00 Temp 102.1 Pulse 140 Resp 36 B/P (MAP) 138/78 (98) Pulse Ox 96 O2 Delivery Room Air Capillary Refill : Less Than 3 Seconds Height, Weight, BMI Height: 5'1.00" Weight: 114lbs. 6.0oz. 51.721787zf; 21.6 BMI Method:Stated General Appearance: Anxious, Thin HEENT: Pharynx Normal, Moist Mucous Membranes; No Tonsillar Exudate, No Tonsillar Enlargement Respiratory: Lungs Clear, Normal Breath Sounds, No Accessory Muscle Use Cardiovascular: Regular Rate, Rhythm, Other (carotid bruit noted by Dr. Mckenzie) Gastrointestinal: Normal Bowel Sounds, Non Tender; No Guarding Back: Other (reproducible pain on right flank) Extremity: No Pedal Edema, Other (+5/5 UE strength) Neurologic/Psychiatric: Alert, Oriented x3 Skin: Normal Color Results Results/Procedures Labs Laboratory Tests 03/25/19 18:10 03/26/19 05:15 Patient resulted labs reviewed. Negative troponin. Imaging CXR demonstrated air trapping bilaterally and right basilar atelectasis or pneumonitis Assessment/Plan Admission Diagnosis Pneumonia Admission Status: Inpatient Order (span 2 midnights) Assessment and Plan Assessment: 1. Pneumonia 2. Emphysema exacerbation 3. Hypercholesterolemia 4. Hypertension 5. Depression 6. Anxiety 7. Lifelong smoker 8. CABG x4 Plan: 1. Continue Cefepime 2g Q12H 2. PT/OT consult 3. Dr. Ramirez consult 4. Dr. Mckenzie to follow for heart conditions 5. D/C 03/27 if appropriate Diagnosis/Problems Diagnosis/Problems (1) Right lower lobe pneumonia Status: Acute Qualifiers: Pneumonia type: due to unspecified organism Qualified Codes: J18.1 - Lobar pneumonia, unspecified organism (2) Chest pain Status: Acute Qualifiers: Chest pain type: unspecified Qualified Codes: R07.9 - Chest pain, unspe cified (3) CAD (coronary artery disease) Status: Chronic Qualifiers: Coronary Disease-Associated Artery/Lesion type: [place] artery Tribe vs. transplanted heart: [place] heart Associated angina: without angina Qualified Codes: I25.10 - Atherosclerotic heart disease of [place] coronary artery without angina pectoris (4) Personal history of osteoarthritis Status: Chronic (5) Hx of CABG Status: Chronic Clinical Quality Measures DVT/VTE Risk/Contraindication: Risk Factor Score Per Nursin RFS Level Per Nursing on Admit: 3=High BRITNI EATON DO 03/26/192025: History of Present Illness HPI/Chief Complaint Chief complaint: SOB HPI: This is a 58yoWF known to me from complications back in July following a bypass surgery with respiratory insufficiency and pneumonia who presented to the ER with a two week history of productive cough who was found to have pneumonia and in need of cardiology and pulmonology consultations in order to wean off oxygen and ultimately return home back to prior level of activity. At this current time Pt is much improved, lungs have just slight wheezing and Dr. Ramirez and Dr. 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 She continues to smoke and smoking cessation was discussed. Past Vcqgrdx-Aqvmcb-Yzazvj Hx Past Med/Social Hx: Reviewed Nursing Past Med/Soc Hx, Reviewed and Corrections made Patient Social History Marrital Status: Employed/Student: unemployed Smoking Status: Current Everyday Smoker Review of Systems Constitutional: see HPI Respiratory: cough, dyspnea on exertion, wheezing Physical Exam Physical Exam General Appearance: No Apparent Distress, WD/WN, Anxious, Chronically ill, Thin Respiratory: No Accessory Muscle Use, No Respiratory Distress, Crackles, Decreased Breath Sounds, Wheezing Cardiovascular: Regular Rate, Rhythm Neurologic/Psychiatric: Alert, Oriented x3, No Motor/Sensory Deficits, Normal Mood/Affect Assessment/Plan Admission Diagnosis Assessment: Right LL Pneumonia CABG hx Smoker COPD Plan: Abx Nebs O2 Cardiology and Pulmonology appreciated Admission Status: Inpatient Order (span 2 midnights) Reason for Inpatient Admission: Pneumonia will require 2 days IV abx Diagnosis/Problems Diagnosis/Problems (1) Right lower lobe pneumonia Status: Acute Qualifiers: Pneumonia type: due to unspecified organism Qualified Codes: J18.1 - Lobar pneumonia, unspecified organism (2) Chest pain Status: Acute Qualifiers: Chest pain type: unspecified Qualified Codes: R07.9 - Chest pain, unspecified (3) CAD (coronary artery disease) Status: Chronic Qualifiers: Coronary Disease-Associated Artery/Lesion type: [place] artery Tribe vs. t ransplanted heart: [place] heart Associated angina: without angina Qualified Codes: I25.10 - Atherosclerotic heart disease of [place] coronary artery without angina pectoris (4) Personal history of osteoarthritis Status: Chronic (5) Hx of CABG Status: Chronic Supervisory-Addendum Brief Verification & Attestation Time: Verification & Attestat.: 09:00 Participated in pt care: history, MDM, physical Personally performed: exam, history, MDM, supervision of care Care discussed with: Medical Student Procedures: n/a Results interpretation: Verified all documentation Verification and Attestation of Medical Student E/M Service A medical student performed and documented this service in my presence. I reviewed and verified all information documented by the medical student and made modifications to such information, when appropriate. I personally performed the physical exam and medical decision making. Britni Eaton, Mar 26, 2019,20:26 DONAVON REA, Mar 26, 2019 11:24 BRITNI EATON DO Mar 26, 2019 20:26
--- NOTE | 2019-03-26 16:43 | Pulmonary Progress Note ---
Sepsis Event Evaluation Height, Weight, BMI Height: 5'1.00" Weight: 114lbs. 6.0oz. 51.016918dc; 21.6 BMI Method:Stated Focused Exam Lactate Level 03/25/19 18:10: Lactic Acid Level 1.34 Exam Exam Vital Signs Date Time Temp Pulse Resp B/P (MAP) Pulse Ox O2 Delivery O2 Flow Rate FiO2 03/26/19 16:00 99.1 88 18 152/77 (102) 95 Room Air 03/26/19 13:10 95 03/26/19 12:00 97.9 85 18 124/71 (88) 97 Room Air 03/26/19 08:00 99.4 95 18 127/58 (81) 95 Room Air 03/26/19 07:00 82 03/26/19 03:45 97.9 80 20 148/77 (100) 99 Room Air 03/26/19 00:36 94 03/26/19 00:31 98.0 95 22 117/83 (94) 97 Room Air 03/26/19 00:29 98.0 95 23 117/83 (94) 97 Room Air 03/26/19 00:00 Room Air 03/25/19 23:14 98.0 95 23 117/83 97 Room Air 03/25/19 23:00 97.3 88 18 114/66 (82) 96 Room Air 03/25/19 17:54 102.1 140 36 138/78 (98) I & O 03/26/19 07:00 Intake Total 2120 ml Output Total 400 ml Balance 1720 ml Height & Weight Height: 5'1.00" Weight: 114lbs. 6.0oz. 51.826077dp; 21.6 BMI Method:Stated General Appearance: Anxious, Thin HEENT: Pharynx Normal, Moist Mucous Membranes; No Tonsillar Exudate, No Tonsillar Enlargement Neck: Non Tender, Supple, Carotid Bruit Respiratory: Lungs Clear, Normal Breath Sounds, No Accessory Muscle Use Cardiovascular: Regular Rate, Rhythm, Other (carotid bruit noted by Dr. Mckenzie) Capillary Refill: Less Than 3 Seconds Extremity: No Pedal Edema, Other (+5/5 UE strength) Neurologic/Psychiatric: Alert, Oriented x3 Skin: Normal Color Lymphatic: No Adenopathy Results Lab Laboratory Tests 03/25/19 18:10 03/26/19 05:15 TATE JACKSON DO Mar 26, 2019 16:43
[2019-03-26] MEDS: RT-ALBUTEROL/IPRATROPIUM 3 ML (DUONEB) VIAL INH SCH ×2 (19:50→22:16)
[2019-03-26] MEDS ORDERED: ALPRAZolam 0.25 MG (XANAX) TAB PO PRN (20:30)
[2019-03-26] MEDS ORDERED: NON-FORMULARY MEDICATION 1 EA EA (Ondansetron HCl (Zofran) 8 MG) PO PRN (20:30)
[2019-03-26] MEDS ORDERED: MELATONIN 3 MG TABLET PO PRN (20:30)
[2019-03-26] MEDS ORDERED: ONDANSETRON 4 MG/2 ML (SDV) Z0FRAN IVP PRN (20:30)
[2019-03-26] MEDS ORDERED: DOCUSATE SODIUM 100 MG (COLACE) CAP PO PRN (20:30)
[2019-03-26] MEDS ORDERED: LOPERAMIDE 2 MG (IMODIUM) TABLET PO PRN (20:30)
[2019-03-26] MEDS ORDERED: CALCIUM CARBONATE 500 MG (TUMS) TAB.CHEW PO PRN (20:30)
[2019-03-26] MEDS ORDERED: diphenhydrAMINE 25 MG TAB (BENADRYL) PO PRN (20:30)
[2019-03-26] MEDS ORDERED: ATORVASTATIN 20 MG (LIPITOR) TABLET PO SCH (21:00)
[2019-03-26] MEDS ORDERED: NON-FORMULARY MEDICATION 1 EA EA (Gabapentin 800 MG) PO SCH (21:00)
[2019-03-26] MEDS ORDERED: ONDANSETRON 4 MG (ZOFRAN) ORAL DISSOLVE TAB PO PRN (21:45)
[2019-03-26] MEDS ORDERED: GABAPENTIN 400 MG (NEURONTIN) CAP ONE (22:17)
[2019-03-26] MEDS: SENNA W/DOCUSATE (SENOKOT S) TABLET PO SCH (22:25)
[2019-03-26] MEDS: GABAPENTIN 400 MG (NEURONTIN) CAP PO SCH (22:25)
[2019-03-27] MEDS: RT-ALBUTEROL/IPRATROPIUM 3 ML (DUONEB) VIAL INH SCH ×3 (02:24→10:02)
[2019-03-27 04:29] VITALS: BP 126/76
[2019-03-27 05:48] LABS: BASOPHILS # (AUTO) 0.1 10^3/uL (0.0-0.1); BASOPHILS % (AUTO) 0 % (0-10); EOSINOPHILS # (AUTO) 0.2 10^3/uL (0.0-0.3); EOSINOPHILS % (AUTO) 1 % (0-10); HEMATOCRIT 35 % (35-52); HEMOGLOBIN 11.7 G/DL (11.5-16.0); LYMPHOCYTES # (AUTO) 2.3 X 10^3 (1.0-4.0); LYMPHOCYTES % (AUTO) 12 % (12-44); MEAN CORPUSCULAR HEMOGLOBIN 30 PG (25-34); MEAN CORPUSCULAR HGB CONC 33 G/DL (32-36); MEAN CORPUSCULAR VOLUME 90 FL (80-99); MEAN PLATELET VOLUME 9.7 FL (7.4-10.4); MONOCYTES % (AUTO) 5 % (0-12); NEUTROPHILS # (AUTO) 15.3 X 10^3 (1.8-7.8); NEUTROPHILS % (AUTO) 81 % (42-75); PLATELET COUNT 404 10^3/uL (130-400); RED CELL DISTRIBUTION WIDTH 13.6 % (10.0-14.5); WHITE BLOOD COUNT 18.9 10^3/uL (4.3-11.0)
[2019-03-27 06:12] LABS: ALANINE AMINOTRANSFERASE 11 U/L (0-55); ALBUMIN 3.3 GM/DL (3.2-4.5); ALKALINE PHOSPHATASE 33 U/L (40-136); BILIRUBIN,TOTAL 0.1 MG/DL (0.1-1.0); BUN/CREATININE RATIO 18; CALCIUM 9.4 MG/DL (8.5-10.1); CARBON DIOXIDE 21 MMOL/L (21-32); CHLORIDE 111 MMOL/L (98-107); CREATININE SERUM 0.62 MG/DL (0.60-1.30); GFR ESTIMATED > 60; GLUCOSE 108 MG/DL (70-105); POTASSIUM 4.4 MMOL/L (3.6-5.0); SODIUM 140 MMOL/L (135-145); TOTAL PROTEIN 6.3 GM/DL (6.4-8.2)
--- NOTE | 2019-03-27 06:12 | NUR ---
PATIENT WAS ON RA AND DOING GOOD AT THIS TIME; SHE DID TAKE HER DUONEB SVN BREATHING TX AND TOLERATED IT GOOD. SHE IS VERY SLEEPY THIS MORNING
[2019-03-27] MEDS ORDERED: ETODOLAC 300 MG (LODINE) CAP PO PRN (06:30)
[2019-03-27 08:00] VITALS: BP 137/78
[2019-03-27] MEDS: NICOTINE 21 MG (NICODERM) PATCH TD SCH (08:20)
[2019-03-27] MEDS: GABAPENTIN 400 MG (NEURONTIN) CAP PO SCH (08:21)
[2019-03-27] MEDS: SENNA W/DOCUSATE (SENOKOT S) TABLET PO SCH (08:22)
[2019-03-27] MEDS: morphine INJ 4 MG/ML 1 ML (VIAL/SYRINGE) IV PRN ×2 (08:32→11:57)
[2019-03-27] MEDS ORDERED: NICOTINE PATCH REMOVAL TP SCH (08:59)
[2019-03-27] MEDS ORDERED: lisINopril 5 MG (PRINIVIL) TABLET PO SCH (09:00)
[2019-03-27] MEDS ORDERED: NON-FORMULARY MEDICATION 1 EA EA (Folic Acid 0.8 MG) PO SCH (09:00)
[2019-03-27] MEDS ORDERED: SERTRALINE 50 MG (ZOLOFT) TABLET PO SCH (09:00)
[2019-03-27] MEDS ORDERED: CYANOCOBALAMIN 1,000 MCG (VITAMIN B-12) TABLET PO SCH (09:00)
[2019-03-27] MEDS ORDERED: FOLIC ACID 1 MG TAB PO SCH (09:00)
--- NOTE | 2019-03-27 09:05 | Cardiology Progress Note ---
Subjective Date Seen by Provider: Mar 27, 2019 Time Seen by Provider: 09:03 Subjective/Events-last exam Patient is sitting up in bed, no new complaints. States breathing has improved. Denies any chest pain Focused Exam Lactate Level 03/25/19 18:10: Lactic Acid Level 1.34 Objective-Cardiology Exam Last Set of Vital Signs Vital Signs 03/27/19 10:02 Pulse Ox 97 O2 Delivery Room Air Capillary Refill : Less Than 3 Seconds I&O Intake and Output 03/27/19 00:00 Intake Total 1370 ml Output Total 1300 ml Balance 70 ml Intake Oral 1370 ml Output Urine Total 1300 ml Daily Weight Change Unsure Unsure General: Alert, Oriented X3, Cooperative HEENT: Atraumatic, PERRLA Neck: Supple, No JVD, No Thyromegaly Lungs: Other (bilateral rhonchi) Heart: Regular Rate, Normal S1, Normal S2 Abdomen: Normal Bowel Sounds, Soft Extremities: No Clubbing, No Cyanosis Skin: No Rashes, No Significant Lesion Neuro: Normal Gait, Normal Speech, Cranial Nerves 3-12 NL Psych/Mental Status: Mental Status NL, Mood NL Results Lab Laboratory Tests 03/27/19 05:10 A/P-Cardiology Admission Diagnosis Pneumonia Coronary artery disease Hypertension Hyperlipidemia Assessment/Plan Right sided pneumonia, on cefepime, managed by primary care team Chest pain, musculoskeletal nature, unlikely to be cardiac, reproducible, EKG did not show any acute abnormality. Coronary artery disease, history of CABG 4 done in July 2018, continue to monitor History of congestive heart failure with left ventricular diastolic dysfunction, currently chronic compensated systolic dysfunction. Continue to monitor Paroxysmal atrial fibrillation, currently in sinus rhythm. Continue to monitor COPD followed and managed by Dr. Ramirez Hypertension, blood pressure controlled, continue to monitor blood pressure Hyperlipidemia, maintained on Lipitor Tobaccoism, dictated on smoking cessation Clinical Quality Measures DVT/VTE Risk/Contraindication: Risk Factor Score Per Nursin RFS Level Per Nursing on Admit: 3=High Supervisory-Addendum Brief Supervisory Addendum Participated in pt care: history, MDM, physical Personally performed: exam, history, MDM Care discussed with: JENNY Notes: patient was seen and evaluated, sitting in bed, comfortably, on examination lungs were clear to auscultation bilateral, harsh regular rate and rhythm. Receiving antibiotic for pneumonia, coronary artery disease is clinically stable. Continue on current medication continue to monitor, he for discharge from cardiology standpoint NILDA YOU Mar 27, 2019 09:05 SUPA MCMANUS MD Mar 27, 2019 10:50
--- NOTE | 2019-03-27 09:48 | Pulmonary Progress Note ---
Sepsis Event Evaluation Height, Weight, BMI Height: 5'1.00" Weight: 114lbs. 6.0oz. 51.325515ft; 21.6 BMI Method:Stated Focused Exam Lactate Level 03/25/19 18:10: Lactic Acid Level 1.34 Exam Exam Vital Signs Date Time Temp Pulse Resp B/P (MAP) Pulse Ox O2 Delivery O2 Flow Rate FiO2 03/27/19 07:00 94 03/27/19 06:05 97 Room Air 03/27/19 04:29 98.8 71 20 126/76 (93) 95 Room Air 03/27/19 01:00 78 03/26/19 23:29 98.5 90 18 134/76 (95) 94 Room Air 03/26/19 22:16 94 Room Air 03/26/19 20:00 94 Room Air 03/26/19 19:51 94 Room Air 03/26/19 19:34 98.4 88 18 155/67 (96) 96 Room Air 03/26/19 19:00 104 03/26/19 16:00 99.1 88 18 152/77 (102) 95 Room Air 03/26/19 13:10 95 03/26/19 12:00 97.9 85 18 124/71 (88) 97 Room Air I & O 03/27/19 07:00 Intake Total 1370 ml Output Total 1800 ml Balance -430 ml Height & Weight Height: 5'1.00" Weight: 114lbs. 6.0oz. 51.424239ye; 21.6 BMI Method:Stated General Appearance: WD/WN, Mild Distress HEENT: PERRL/EOMI, TMs Normal, Normal ENT Inspection, Pharynx Normal Neck: Non Tender, Supple, Carotid Bruit Respiratory: Crackles, Decreased Breath Sounds, Expiration, Wheezing Cardiovascular: Regular Rate, Rhythm, No Murmur, Tachycardia Capillary Refill: Less Than 3 Seconds Extremity: Normal Range of Motion, Non Tender Neurologic/Psychiatric: Alert, Oriented x3 Skin: Normal Color, Warm/Dry Lymphatic: No Adenopathy Results Lab Laboratory Tests 03/25/19 18:10 03/26/19 05:15 03/27/19 05:10 Assessment/Plan Assessment/Plan Right sided PNA -Currently on Cefepime -blood Cultures are negative COPDAE Tobacco use -education CT scan from 10/30 showed RUL infiltrate and mediastinal lymphadenopathy -Pt will need repeat CT scan 8 wks after Abx -Strong consideration for bronchoscopy now vs after repeat CT of chest. Hx of CAD with CABG TATE JACKSON DO Mar 27, 2019 09:48
[2019-03-27] MEDS: CEFEPIME INJECTION 2,000 MG in WATER (STERILE) FOR INJECTION 20 ML IV SCH (10:27)
[2019-03-27] MEDS ORDERED: CEFD300C3 PO (10:50)
[2019-03-27] MEDS ORDERED: ACHD5005 PO (10:50)
--- NOTE | 2019-03-27 11:28 | Discharge Summary ---
DONAVON REA, 03/27/19 1128: Diagnosis/Chief Complaint Date of Admission Mar 25, 2019 at 22:13 Date of Discharge Discharge Date: Mar 27, 2019 Admission Diagnosis Assessment: Right LL Pneumonia CABG hx Smoker COPD Plan: Abx Nebs O2 Cardiology and Pulmonology appreciated Discharge Diagnosis (1) Right lower lobe pneumonia Status: Acute (2) Chest pain Status: Acute (3) CAD (coronary artery disease) Status: Chronic (4) Personal history of osteoarthritis Status: Chronic (5) Hx of CABG Status: Chronic Discharge Summary Procedures/Consulations Bowels are moving well Pt wants to walk around more Ready to go home Has arthritic right hip pain Throat is better and can swallow foods easier Liquids are still difficult Is coughing up sputum Inspiratory wheezing on exam RRR, no murmurs Vitals stable Cefepime 2g Q12H WBC 18.9 Plt 404 BNP 142.7 CXR demonstrates RLL is better aerated slightly from previous D/C on Cefdinir 300mg BID Discharge Physical Exam Allergies: Coded Allergies: No Known Drug Allergies (Unverified , 08/23/18) Vitals & I&Os Vital Signs Date Time Temp Pulse Resp B/P (MAP) Pulse Ox O2 Delivery O2 Flow Rate FiO2 03/27/19 12:16 03/27/19 12:00 99.0 93 20 98 Room Air General Appearance: No Apparent Distress, Thin Respiratory: Wheezing Cardiovascular: Regular Rate, Rhythm Extremity: No Pedal Edema Neurologic/Psychiatric: Alert, Oriented x3 Hospital Course Labs (last 24 hrs) Laboratory Tests 03/27/19 05:10: White Blood Count 18.9H, Red Blood Count 3.92L, Hemoglobin 11.7, Hematocrit 35, Mean Corpuscular Volume 90, Mean Corpuscular Hemoglobin 30, Mean Corpuscular Hemoglobin Concent 33, Red Cell Distribution Width 13.6, Platelet Count 404H, Mean Platelet Volume 9.7, Neutrophils (%) (Auto) 81H, Lymphocytes (%) (Auto) 12, Monocytes (%) (Auto) 5, Eosinophils (%) (Auto) 1, Basophils (%) (Auto) 0, Neutrophils # (Auto) 15.3H, Lymphocytes # (Auto) 2.3, Monocytes # (Auto) 1.0, Eosinophils # (Auto) 0.2, Basophils # (Auto) 0.1, Sodium Level 140, Potassium Level 4.4, Chloride Level 111H, Carbon Dioxide Level 21, Anion Gap 8, Blood Urea Nitrogen 11, Creatinine 0.62, Estimat Glomerular Filtration Rate > 60, BUN/Creatinine Ratio 18, Glucose Level 108H, Calcium Level 9.4, Corrected Calcium 10.0, Total Bilirubin 0.1, Aspartate Amino Transf (AST/SGOT) 19, Alanine Aminotransferase (ALT/SGPT) 11, Alkaline Phosphatase 33L, B-Type Natriuretic Peptide 142.7H, Total Protein 6.3L, Albumin 3.3 Microbiology 03/25/19 Blood Culture - Preliminary, Resulted No growth 03/25/19 Urine Culture - Final, Complete 3 or more isolates Patient resulted labs reviewed. Pending Labs Laboratory Tests 03/27/19 05:10: White Blood Count 18.9, Red Blood Count 3.92, Hemoglobin 11.7, Hematocrit 35, Mean Corpuscular Volume 90, Mean Corpuscular Hemoglobin 30, Mean Corpuscular Hemoglobin Concent 33, Red Cell Distribution Width 13.6, Platelet Count 404, Mean Platelet Volume 9.7, Neutrophils (%) (Auto) 81, Lymphocytes (%) (Auto) 12, Monocytes (%) (Auto) 5, Eosinophils (%) (Auto) 1, Basophils (%) (Auto) 0, Neutrophils # (Auto) 15.3, Lymphocytes # (Auto) 2.3, Monocytes # (Auto) 1.0, Eosinophils # (Auto) 0.2, Basophils # (Auto) 0.1, Sodium Level 140, Potassium Level 4.4, Chloride Level 111, Carbon Dioxide Level 21, Anion Gap 8, Blood Urea Nitrogen 11, Creatinine 0.62, Estimat Glomerular Filtration Rate > 60, BUN/Creatinine Ratio 18, Glucose Level 108, Calcium Level 9.4, Corrected Calcium 10.0, Total Bilirubin 0.1, Aspartate Amino Transf (AST/SGOT) 19, Alanine Aminotransferase (ALT/SGPT) 11, Alkaline Phosphatase 33, B-Type Natriuretic Peptide 142.7, Total Protein 6.3, Albumin 3.3 Discharge Home Medications: Active Scripts Active Cefdinir 300 Mg Capsule 300 Mg PO BID Hydrocodone/Acetaminophen 5/325mg Tablet (Acetaminophen/Hydrocodone Bitart) 1 Tab Tab 1 Tab PO Q4-6HR PRN MDD 10 Reported Folic Acid 0.8 Mg Tablet 0.8 Mg PO DAILY Vitamin B-12 (Cyanocobalamin (Vitamin B-12)) 1,000 Mcg Tablet 1,000 Mcg PO DAILY Vitamin D2 (Ergocalciferol (Vitamin D2)) 50,000 Unit Capsule 50,000 Unit PO FR Sertraline HCl 50 Mg Tablet 50 Mg PO DAILY LAST FILLED #30 02-21-19 Diclofenac Sodium 75 Mg Tablet.dr 75 Mg PO BID PRN Tizanidine HCl 4 Mg Tablet 4 Mg PO TID PRN Requip Xl (Ropinirole HCl) 2 Mg Tab.er.24h 2 Mg PO 1900 Gabapentin 800 Mg Tablet 800 Mg PO QID Lisinopril 5 Mg Tablet 5 Mg PO DAILY LAST RECEIVED FROM REPOSITORY 12-05-18 #90 Metoprolol Succinate 25 Mg Tab.er.24h 25 Mg PO DAILY Zofran (Ondansetron HCl) 4 Mg Tab 8 Mg PO BID PRN TAKES 2 (4MG) TABLETS Atorvastatin Calcium 20 Mg Tablet 40 Mg PO HS LAST RECEIVED FROM REPOSITORY #90 12-05-18 Melatonin 5 Mg Capsule 5 Mg PO HS PRN Instructions to patient/family Please see electronic discharge instructions given to patient. Clinical Quality Measures DVT/VTE Risk/Contraindication: Risk Factor Score Per Nursin RFS Level Per Nursing on Admit: 3=High BRITNI EATON DO 03/27/19 2131: Diagnosis/Chief Complaint Discharge Diagnosis (1) Pneumonia Status: Acute (2) Smoker Status: Acute (3) CAD (coronary artery disease) Status: Chronic Discharge Summary Discharge Physical Exam Allergies: Coded Allergies: No Known Drug Allergies (Unverified , 08/23/18) General Appearance: No Apparent Distress, WD/WN Respiratory: No Accessory Muscle Use, No Respiratory Distress, Decreased Breath Sounds, Wheezing Cardiovascular: Regular Rate, Rhythm, No Edema, No Gallop, No JVD, No Murmur, Normal Peripheral Pulses Neurologic/Psychiatric: Alert, Oriented x3, No Motor/Sensory Deficits, Normal Mood/Affect Hospital Course Was the Problem List Reviewed?: Yes Hospital course: Pt had an uneventful hospital course, she was placed on empiric antibiotic of Cefepime in addition to nebulizer treatments and oxygen supplementation. Cough was productive, chest X-ray repeat showed right lower lobe pneumonia was improved, Dr. Ramirez was supportive in discharge and will have close follow-up with CT scans since the last pneumonia she had was on the right side and she is a smoker, to rule out any type of obstruction she may need a bronchoscopy. Bowels were moving, eating and drinking well and she was deemed stable for discharge on 10 more day s of Cefdinir 300 Mg BID. Discussion & Recommendations Discharge Planning: <30 minutes discharge planning Supervisory-Addendum Brief Verification & Attestation Participated in pt care: history, MDM, physical Personally performed: exam, history, MDM, supervision of care Care discussed with: Medical Student Procedures: n/a Results interpretation: Verified all documentation Verification and Attestation of Medical Student E/M Service A medical student performed and documented this service in my presence. I reviewed and verified all information documented by the medical student and made modifications to such information, when appropriate. I personally performed the physical exam and medical decision making. Britni Eaton, Mar 27, 2019,21:31 Problem Qualifiers (1) Right lower lobe pneumonia: Pneumonia type: due to unspecified organism Qualified Codes: J18.1 - Lobar pneumonia, unspecified organism (2) Chest pain: Chest pain type: unspecified Qualified Codes: R07.9 - Chest pain, unspecified (3) CAD (coronary artery disease): Coronary Disease-Associated Artery/Lesion type: [place] artery [place] vs. transplanted heart: [place] heart Associated angina: without angina Qualified Codes: I25.10 - Atherosclerotic heart disease of [place] coronary artery without angina pectoris DONAVON REA, Mar 27, 2019 11:28 BRITNI EATON DO Mar 27, 2019 21:31
[2019-03-27 12:00] VITALS: BP 169/83
[2019-03-27] MEDS ORDERED: ROPINIROLE HCL 2 MG PO SCH (19:00)
[2019-03-27] MEDS ORDERED: MELATONIN 3 MG TABLET PO PRN (21:00)
[2019-03-29] MEDS ORDERED: VITAMIN D2 50,000 UNITS (1.25 MG) CAP PO SCH (20:30)
== END 2019-03-27 12:20 | disposition home or self-care (01) | DRG 194 ==
LOC: EDUNIT# 17:49 → ER 17:51 → 4TH 22:13
PROVIDERS: ADMIT Internal Medicine; ATTEND Internal Medicine
DX: J18.1 Lobar pneumonia, unspecified organism (principal); R59.0 Localized enlarged lymph nodes; J43.9 Emphysema, unspecified; I11.0 Hypertensive heart disease with heart failure; I50.22 Chronic systolic (congestive) heart failure; I25.10 Atherosclerotic heart disease of native coronary artery without angina pectoris; I48.0 Paroxysmal atrial fibrillation; R07.89 Other chest pain; F17.210 Nicotine dependence, cigarettes, uncomplicated; E78.5 Hyperlipidemia, unspecified; L40.50 Arthropathic psoriasis, unspecified; R13.10 Dysphagia, unspecified; F41.9 Anxiety disorder, unspecified; F32.9 Major depressive disorder, single episode, unspecified; R51 Headache; R53.1 Weakness; M54.9 Dorsalgia, unspecified; M16.11 Unilateral primary osteoarthritis, right hip; I25.2 Old myocardial infarction; Z95.1 Presence of aortocoronary bypass graft
CPT/HCPCS: 36415; 71045; 80053; 81000; 83605; 83880; 84484; 85007; 85025; 85027; 85610; 85730; 87040; 87088; 93005; 94640; 94760

== ENCOUNTER → 2019-06-25 | Outpatient (CLI) | payer MEDICAID ==
[~2019-06-25] MED LIST changes: +ACHD5005 PO; +CYAN-41 PO; +DICL75TA2 PO; +ERGO50006 PO; +FOLI0.8T PO; +ROPI2TAB PO; +TIZA4TAB4 PO
--- NOTE | 2019-06-25 12:52 | Diagnostic Imaging Report ---
CLINICAL INDICATION: Patient with chronic neck pain. EXAM: MRI of the cervical spine performed without IV contrast. Sequences include sagittal T1, sagittal T2, sagittal stir, axial gradient echo sequence, and axial T2. COMPARISON: CT angiogram of the head/neck dated 10/19/2018. FINDINGS: There is no acute cervical spine fracture or dislocation. There is slight straightening of the cervical spine posture again seen. There is a small amount of Modic type II degenerative signal changes anteriorly at the C5-C6 level. Limited visualization of the posterior fossa shows partially empty sella turcica. Cervical spinal cord has normal cord caliber with no abnormal signal. There is no significant paraspinal soft tissue abnormality. There are hypertrophic vertebral body spurs seen throughout the cervical spine and facet arthropathy. C1-C2: There are degenerative spurs involving the atlantoodontoid interval anteriorly. There is mild central canal narrowing. C2-C3: There is bigl-fi-ipzinqox left facet arthropathy and mild right facet arthropathy. There is no significant central spinal canal or neural foramen narrowing. C3-C4: There is moderate right facet arthropathy and mild left facet arthropathy. There is a minimal-sized posterior disc bulge. There is no significant central spinal canal or neural foramen narrowing. C4-C5: There is a minimal-sized posterior disc bulge. There is no significant central spinal canal or neural foramen narrowing. C5-C6: There is a diffuse disc bulge with superimposed right paracentral disc osteophyte complex and bilateral uncinate spurs. There is mild loss of intervertebral disc height. There is severe central canal stenosis with slight deformity of the cervical cord. There is at least adar-nh-vdgopsww left neural foramen narrowing and cydvhnzo-uu-irnnxi right neural foramen narrowing. C6-C7: There is a diffuse disc bulge. There is mild bilateral facet arthropathy. There is moderate central canal stenosis. There is no significant neural foramen narrowing. C7-T1: There is no significant posterior disc bulge. There is no significant central spinal canal or neural foramen narrowing. IMPRESSION: 1: There is multilevel cervical spine degenerative disc disease which is worse at the C5-C6 level. The degenerative disease is described in detail above. 2: There is severe C5-C6 central canal stenosis due to diffuse disc bulge, posterior disc spurs, and facet arthropathy. Dictated by: Dictated on workstation # [id number]
== END ==
LOC: RAD 10:01
PROVIDERS: ATTEND Nurse Practitioner Community Health
DX: M50.122 Cervical disc disorder at C5-C6 level with radiculopathy (principal); M48.02 Spinal stenosis, cervical region; M46.02 Spinal enthesopathy, cervical region
CPT/HCPCS: 72141

== ENCOUNTER 2019-07-17 16:25 | Emergency (ER) | payer MEDICAID ==
[~2019-07-17] VITALS: Ht 157 cm; Wt 54.8 kg
[~2019-07-17 16:25] MED LIST changes: -DOXY100T19 PO; +DOXY100T31 PO; -MAGN400T6 PO; +MAGN400T8 PO; -METO-370 PO; -METO-387 PO; +METO50TA7 PO; +MTP25TSR PO; -TRAM50TA2 PO; +TRM50T PO
[2019-07-17] MEDS ORDERED: DEXAMETHASONE 10 MG/ML (DECADRON) 1 ML VIAL IM ONE (16:45)
[2019-07-17] MEDS ORDERED: KETOROLAC 60 MG/2 ML VIAL IM ONE (16:45)
--- NOTE | 2019-07-17 16:47 | ED Back Pain ---
General Chief Complaint: Back Problems Stated Complaint: LOWER BACK PAIN Nursing Triage Note: PATIENT STATES THAT HER SCIATICA IS ACTING UP AND SHE COULD NOT GET IN TO SEE HER DOCTOR. Nursing Sepsis Screen: No Definite Risk Source of Information: Patient Exam Limitations: No Limitations History of Present Illness Date Seen by Provider: Jul 17, 2019 Time Seen by Provider: 16:54 Initial Comments Worsening pain shooting from the back down the left leg since Thanksgiving, no loss of bowel or bladder control, no numbness of genitals. No fever no chills no fall. Location: Lumbar Spine Timing/Duration: 1 Week (1-2 weeks) Severity: Moderate Pain/Injury Location: Back Associated Symptoms: lower back pain Allergies and Home Medications Allergies Coded Allergies: No Known Drug Allergies (Unverified , 08/23/18) Home Medications Atorvastatin Calcium 20 Mg Tablet, 40 MG PO HS, (Reported) LAST RECEIVED FROM REPOSITORY #90 12-05-18 Cefdinir 300 Mg Capsule, 300 MG PO BID Prescribed by: SARABJIT EATON on 03/27/19 1050 Cyanocobalamin (Vitamin B-12) 1,000 Mcg Tablet, 1,000 MCG PO DAILY, (Reported) Diclofenac Sodium 75 Mg Tablet.dr, 75 MG PO BID PRN for ARTHRITIS PAIN, (Reported) Ergocalciferol (Vitamin D2) 50,000 Unit Capsule, 50,000 UNIT PO Fr, (Reported) Folic Acid 0.8 Mg Tablet, 0.8 MG PO DAILY, (Reported) Gabapentin 800 Mg Tablet, 800 MG PO QID, (Reported) Hydrocodone Bit/Acetaminophen 1 Tab Tab, 1 TAB PO Q4-6HR PRN for PAIN-MODERATE Prescribed by: SARABJIT EATON on 03/27/19 1050 Lisinopril 5 Mg Tablet, 5 MG PO DAILY, (Reported) LAST RECEIVED FROM REPOSITORY 12-05-18 #90 Melatonin 5 Mg Capsule, 5 MG PO HS PRN for SLEEP, (Reported) Metoprolol Succinate 25 Mg Tab.er.24h, 25 MG PO DAILY, (Reported) Ondansetron HCl 4 Mg Tab, 8 MG PO BID PRN for NAUSEA/VOMITING-1ST LINE, (Reported) TAKES 2 (4MG) TABLETS Ropinirole HCl 2 Mg Tab.er.24h, 2 MG PO 1900, (Reported) Sertraline HCl 50 Mg Tablet, 50 MG PO DAILY, (Reported) LAST FILLED #30 02-21-19 Tizanidine HCl 4 Mg Tablet, 4 MG PO TID PRN for MUSCLE SPASMS, (Reported) Patient Home Medication List Home Medication List Reviewed: Yes Review of Systems Constitutional: see HPI EENTM: see HPI Respiratory: no symptoms reported Cardiovascular: no symptoms reported Genitourinary: no symptoms reported Musculoskeletal: see HPI, back pain Skin: no symptoms reported Psychiatric/Neurological: No Symptoms Reported Past Hedyvkb-Dohtab-Irdldo Hx Patient Social History Alcohol Use: Denies Use Recreational Drug Use: No Type Used: Cigarettes Former Smoker, Quit: Jul 22, 2018 2nd Hand Smoke Exposure: Yes (quit since recent hospitalization) Recent Foreign Travel: No Contact w/Someone Who Travel: No Recent Infectious Disease Expo: No Recent Hopitalizations: Yes (11/30) Immunizations Up To Date Tetanus Booster (TDap): Unknown PED Vaccines UTD: Yes Date of Pneumonia Vaccine: Jul 17, 2017 Date of Influenza Vaccine: Aug 03, 2018 Seasonal Allergies Seasonal Allergies: No Past Medical History Surgeries: Yes (CARPAL TUNNEL, OPEN HEART-4 VESSEL CABG 07/30/18) Abdominal, Cardiac, CABG, Hysterectomy, Oophorectomy, Open Heart Surgery, Orthopedic, Vascular Surgery Respiratory: Yes Asthma, Pneumonia, COPD Currently Using CPAP: No Currently Using BIPAP: No Cardiac: Yes ([place] 07/2018 WITH 4 VESSEL CABG 07/30/18) Coronary Artery Disease, Heart Attack, High Cholesterol, Hypertension Neurological: No Female 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 Disorders: Denies 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 Genitourinary: No Gastrointestinal: No Musculoskeletal: Yes (PSORIATIC ARTHRITIS) Degenerate Disk Disease, Arthritis, Chronic Back Pain Endocrine: No HEENT: Yes (EDENTULOUS, R mastoid bone removed) Cancer: No Psychosocial: No Anxiety, Depression Integumentary: Yes (POST OP WOUND INFECTION TO LEGS POST CABG) Psoriasis Blood Disorders: Yes (POST OP ANEMIA 07/2018--4 UNITS OF BLOOD POST OP) Adverse Reaction/Blood Tranf: No Family Medical History Diabetes, Hypertension Physical Exam Vital Signs Vital Signs - First Documented 07/17/19 16:33 Temp 36.7 Pulse 98 Resp 20 B/P (MAP) 176/90 (118) Pulse Ox 94 Capillary Refill : Less Than 3 Seconds Height, Weight, BMI Height: 5'1.00" Weight: 114lbs. 6.0oz. 51.210822vz; 22.00 BMI Method:Stated General Appearance: No Apparent Distress, WD/WN Neck: Full Range of Motion, Normal Inspection Respiratory: No Accessory Muscle Use, No Respiratory Distress Gastrointestinal: Normal Bowel Sounds, Non Tender, Soft Extremity: Normal Capillary Refill, Normal Inspection Neurologic/Psychiatric: Alert, Oriented x3 Skin: Normal Color, Warm/Dry Procedures/Interventions Date of ETT Placement: Oct 17, 2018 Time of ETT Placement: 1441 Progress/Results/Core Measures Results/Orders My Orders Orders - JASON ROLON APRN Dexamethasone Injection (Decadron Inject (07/17/19 16:45) Ketorolac Injection (Toradol Injection) (07/17/19 16:45) Vital Signs/I&O 07/17/19 16:33 Temp 36.7 Pulse 98 Resp 20 B/P (MAP) 176/90 (118) Pulse Ox 94 Blood Pressure Mean: 118 POS Departure Impression Primary Impression: Lumbar radiculopathy Disposition: 01 HOME, SELF-CARE Condition: Stable Departure-Patient Inst. Decision time for Depature: 16:47 Referrals: [facility] (PCP) Primary Care Physician LAUREN BAIRD (Family) Primary Care Physician Patient Instructions: MANAGING YOUR CHRONIC PAIN Add. Discharge Instructions: 1. Return to ER for any concerns 2. Follow-up with your doctor next week 3. All discharge instructions reviewed with patient and/or family. Voiced understanding. JASON ROLON APRN Jul 17, 2019 16:47 POS
[2019-07-17 16:56] VITALS: BP 176/90
--- OUTSIDE RECORDS SUMMARY | 2019-08-12 15:27 | XMS REPORT | Encounter Summary ---
Author Author [facility] Organization [facility] Address Unknown Phone Unavailable Care Team Providers Care Reservationist Name Role Phone Tamia Fonseca MD PCP Encounter Details Care Team Description Date Type Department 06/25/2019 [facility] [address] [address] Social History Date Tobacco Use Types Packs/Day Years Used Heavy Tobacco Smoker Cigarettes 2 45 Smokeless Tobacco: Former User Drinks/Week oz/Week Comments Alcohol Use No Alcohol Habits Answer Date Recorded How often do you have a drink containing alcohol? Never 10/20/2018 How many drinks containing alcohol do you have on No t asked a typical day when you are [...] impairment: No documented as of this encounter Medications at [...] tablet tablet by mouth at bedtime daily. 11/13/2016 traMADol (ULTRAM) 50 mg Take 50 mg by 0 tablet mouth every 8 hours. 11/04/2018 zinc sulfate 220 mg (50 one capsule 0 mg elemental zinc) by Per NG capsule tube route daily. 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 documented in this encounter Visit Diagnoses Not on filedocumented in this encounter
--- OUTSIDE RECORDS SUMMARY | 2019-08-12 15:27 | XMS REPORT | Encounter Summary ---
Author Author [facility] Organization [facility] Address Unknown Phone Unavailable Care Team Providers Care President & Founder Name Role Phone Tamia Fonseca MD PCP Reason for Visit * Reason Comments Pre-Visit Planning Encounter Details Care Team Description Date Type Department Jack Grossman MD [address] [place] [address] Pre-Visit Planning 07/30/2019 Telephone [facility] [address] [id number] Social History Date Tobacco Use [...] encounter Miscellaneous Notes * Telephone Encounter - Elizabeth Lemons MA - 07/30/2019 11:13 AM SERVICE WORKER Pre Visit Planning- New Patient Records received: Yes Orders have been NA Patient inactive in MyChart.. Patient notified of upcoming appointment. Updated chart: Medication, History and Allergies MRI PACS ICE WORKER documented in this encounter Plan of Treatment Not on filedocumented as of this encounter Visit Diagnoses Not on filedocumented in this encounter
--- OUTSIDE RECORDS SUMMARY | 2019-08-12 15:27 | XMS REPORT | Encounter Summary ---
Author Author [facility] Organization [facility] Address Unknown Phone Unavailable Care Team Providers Care Assembler Dielectric Heater Name Role Phone Tamia Fonseca MD PCP Encounter Details Care Team Description Date Type Department Jack Grossman MD [address] [place], [place] [id number] Neck pain (Primary Dx) 08/01/2019 Orders Only [facility] [address] [address] Social History Date Tobacco Use [...] Not on filedocumented as of this encounter Results * C SPINE 6 OR MORE VIEWS (08/06/2019 7:40 AM LOW PRESSURE FIRER) Specimen Impressions Performed At 1. There is straightening of the cervical vertebrae with otherwise normal [facility] alignment to C7-T1. The odontoid and pr edental space are maintained. Prevertebral soft tissues are unremarka ble. 2. There is multilevel degenerative d isc disease. Mild disc space narrowing in the mid cervical spine. Mild spurring a t C3-4, moderate spurring at C4-5, large spurs at C5-6, and moderate anterior sp urring at C6 C6-7. Mild spurring at C7-T1. 3. With flexion and extension there i s no abnormal motion. On the oblique views there is moderate right foraminal narrowing at C5-6 and mild left foraminal narrowing at C5-6. Finalized by Leo Noland M.D. on 08/06 8:54 AM. Dictated by Leo Noland M.D. on 08/06/2019 8:51 AM. Narrative Performed At Exam: C SPINE 6 OR MORE VIEWS [facility] CLINICAL INDICATION: 58 years Female ne ck pain COMPARISON: 06/25/2019. Procedure Note Interface, Radiant Results - 08/06/2019 8:57 AM LOW PRESSURE FIRER Exam: C SPINE 6 OR MORE VIEWS CLINICAL INDICATION: 58 years Female neck pain COMPARISON: 06/25/2019. IMPRESSION 1. There is straightening of the cervic al vertebrae with otherwise normal alignment to C7-T1. The odontoid and predental space are maintained. Prevertebral soft tissues are unremarkable. 2. There is multilevel degenerative dis c disease. Mild disc space narrowing in the mid cervical spine. Mild spurring at C3-4, moderate spurring at C4-5, large spurs at C5-6, and moderate anterior spurring at C6 C6-7. Mild spurring at C7-T1. 3. With flexion and extension there is no abnormal motion. On the oblique views there is moderate right foraminal narrowing at C5-6 and mild left foraminal narrowing at C5-6. Finalized by Leo Noland M.D. on 08/06/2019 8:54 AM. Dictated by Leo Noland M.D. on 08/06/2019 8:51 AM. Performing Organization Address City/State/Zipcode Ph one Number [facility] documented in this encounter Visit Diagnoses Diagnosis Neck pain - Primary Cervicalgia documented in this encounter
--- OUTSIDE RECORDS SUMMARY | 2019-08-12 15:27 | XMS REPORT | Encounter Summary ---
Author Author [facility] Organization [facility] Address Unknown Phone Unavailable Care Team Providers Care Poultry Boner Name Role Phone Tamia Fonseca MD PCP Encounter Details Care Team Description Date Type Department Jack Grossman MD [address] [place], [place] [id number] Arrived 08/06/2019 [facility] [address] [address] Social History Date Tobacco Use Types Packs/Day [...] Status Date of Assessment Functional Status Response 08/06/2019 Does the patient have a hearing impairment: No 08/06/2019 Does the patient have a visual impairment: Yes documented as of this encounter Medications at [...] Procedure Name Priority Date/Time Associated Diag nosis C SPINE 6 OR MORE VIEWS Routine 08/06/2019 Neck p ain 7:40 AM BRASS BOBBIN WINDER documented in this encounter Results * C SPINE 6 OR MORE VIEWS (08/06/2019 7:40 AM BRASS BOBBIN WINDER) Specimen Impressions Performed At 1. There is [...] Interface, Radiant Results - 08/06/2019 8:57 AM BRASS BOBBIN WINDER Exam: C SPINE 6 OR MORE VIEWS [...] this encounter Visit Diagnoses Diagnosis Neck pain Cervicalgia documented in this encounter
--- OUTSIDE RECORDS SUMMARY | 2019-08-12 15:27 | XMS REPORT | Clinical Summary ---
Author Author [facility] Organization [facility] Address Unknown Phone Unavailable Care Team Providers Care Calciner Operator Name Role Phone Tamia Fonseca MD PCP Source Comments Some departments are not documenting in the electronic medical record. If you d o not see the information that you expected, contact Release of Information in [facility] [employer] Information Management department at [phone] for further assistan ce in locating additional records.[facility] Allergies No Known Allergies Medications End Date Status Medication Sig Dispensed Refills Start Date Active furosemide (LASIX) 20 mg Take 20 mg by 0 tablet mouth every morning. Active aspirin 81 mg chewable one tablet by 90 tablet 3 0 tablet Per OG Tube 9 route daily. Take with food. Active atorvastatin (LIPITOR) 20 one tablet by 90 tablet 3 mg tablet Per OG Tube 9 route at bedtime daily. Active budesonide respule Inhale 2 mL 60 mL 3 01 (PULMICORT) 0.5 mg/2 mL solution by 9 nebulizer solution nebulizer as directed twice daily. Active ipratropium/albuterol Inhale one 0 11/04/19 1 (COMBIVENT RESPIMAT) puff by mouth 9 20-100 mcg/actuation mist into the inhaler lungs every 4 hours as needed. Active melatonin 3 mg tab Take one 0 tablet by 9 mouth at bedtime daily. Active nicotine (NICODERM CQ Apply one 28 patch 2 10/13 STEP 1) 21 mg/day patch to top 9 patchIndications: Smoking of skin as Cessation directed every 24 hours. Rotate patch location. Indications: Stop Smoking Active potassium chloride 20 15 mL by Per 473 mL 0 mEq/15 mL oral solution OG Tube route 9 daily. Active sertraline (ZOLOFT) 50 mg Take one 0 10/13 tablet tablet by 9 mouth at bedtime [...] Active collagenase (SANTYL) 250 Apply to 0 11/03 unit/g topical ointment bilateral 9 lower leg wounds twice daily, secure sressings with tape. Change dressings daily Active docusate (COLACE) 50 mg/5 10 mL by Per 0 10/13 mL oral solution OG Tube route 9 twice daily. Active famotidine (PEPCID) 40 2.5 mL by Per 50 mL 0 0 mg/5 mL (8 mg/mL) susp NG tube route 9 oral suspension twice daily. Active heparin (porcine) PF Inject 0.5 mL 0 5,000units/0.5mL under the 9 injection syringe skin twice daily. Active metoprolol(#) (LOPRESSOR) Take 3.75 mL 0 10/13 10 mg/mL via feeding 9 tube twice daily. Active milk of magnesia (CONC) 10 mL by Per 360 mL 0 0 2,400 mg/10 mL oral OG Tube route 9 suspension daily. Active oxyCODONE (ROXICODONE) 1 5-15 mL by 0 11/03201 mg/mL oral solution Per NG tube 9 route every 4 hours as needed Active risperiDONE (RISPERDAL) 1 Take one 0 /2 201 mg tablet tablet by 9 mouth at bedtime daily. Active senna/docusate 10 mL by Per 0 (SENOKOT-S) 8.8/50 mg /10 OG Tube route 9 mL solution twice daily. Active zinc sulfate 220 mg (50 one capsule 0 mg elemental zinc) by Per NG 9 capsule tube route daily. Active traMADol (ULTRAM) 50 mg Take 50 mg by 0 tablet mouth every 8 7 hours. Active Problems Problem Noted Date Degenerative disc disease, cervical 08/06/2019 Cervical strain, acute, initial encounter 08/06/2019 Hypertension, essential 11/01/2018 Hyperlipidemia 11/01/2018 CAD (coronary artery disease) 11/01/2018 COPD (chronic obstructive pulmonary disease) 019 Depression 11/01/2018 Pneumocephalus 10/26/2018 Cerebritis 10/26/2018 Abscess of brain 10/26/2018 Paroxysmal atrial fibrillation 10/25/2018 Altered mental status, unspecified 10/20/2018 Pneumonia due to infectious organism 10/19/2018 Acute respiratory failure with hypoxia and hypercapni a 10/19/2018 Resolved Problems Problem Noted Date Resolved Date Influenza A 10/26/2018 11/03/2018 Encounters Care Team Description Date Type Specialty Jack Grossman MD Arrived 08/06/2019 Hospital Radiology Encounter Jack Grossman MD Degenerative disc disease, cervical (Alma murali Dx); Cervical strain, acute, initial encounter 08/06/2019 Office Visit Orthopedic Surgery Jack Grossman MD Neck pain (Primary Dx) 08/01/2019 Orders Only Orthopedic Surgery Jack Grossman MD Pre-Visit Planning 07/30/2019 Telephone Orthopedic Surgery 06/25/2019 Hospital Radiology Encounter from Last 3 Months Family History Medical History Relation Name Comments Heart Disease Brother [place] in 90s, with sev eral stents Heart problem Brother Hypertension Brother Cancer Father Cancer Mother Arthritis Sister Back pain Sister Diabetes Sister Heart Attack Sister maker 95% blo cked s/p stenting Neck Pain Sister Psoriasis Sister Relation Name Status Comments Brother Father Mother Sister Social History Date Tobacco Use Types [...] Signs Reading Time Taken Comments Vital Sign 159/103 08/06/2019 7:39 AM SAP ARIBA CONSULTANT Blood Pressure 82 08/06/2019 7:39 AM SAP ARIBA CONSULTANT Pulse 36.3 C (97.3 F) 08/06/2019 7:39 AM SAP ARIBA CONSULTANT Temperature - - Respiratory Rate 96% 08/06/2019 7:39 AM SAP ARIBA CONSULTANT Oxygen Saturation - - Inhaled Oxygen Concentration 55.3 kg (122 lb) 08/06/2019 7:39 AM SAP ARIBA CONSULTANT Weight 157.5 cm (5' 2") 08/06/2019 7:39 AM SAP ARIBA CONSULTANT Height 22.31 08/06/2019 7:39 AM SAP ARIBA CONSULTANT Body Mass Index Plan of Treatment Health Maintenance Due Date Last Done Comments HEPATITIS C SCREENING 1961 DTAP/TDAP VACCINES (1 - 1972 Tdap) HIV SCREENING 1976 PHYSICAL (COMPREHENSIVE) 1979 EXAM CERVICAL CANCER SCREENING 1991 BREAST CANCER SCREENING 2001 COLORECTAL CANCER 2011 SCREENING SHINGLES RECOMBINANT 2011 VACCINE (1 of 2) INFLUENZA VACCINE 03/14/2019 Implants Device Identifier Shelf Expiration Date Model / Serial / L ot Implanted Type Area Manufactur er 12/14/2026 [id number] / [id number] / [id number] Prosthesis Ossicular 1.27mm Yovani Right: Ear OL YMPUS Ear Reconstruction Yovani - AMER [id number] Implanted: Qty: 1 on 10/29/2018 by Sarath Paris MD at [facility] 12/14/2026 [id number] / [id number] / [id number] Prosthesis Ossicular 1.27mm Yovani Left: Ear OL YMPUS Ear Reconstruction Yovani - AMER [id number] Implanted: Qty: 1 on 10/29/2018 by Sarath Paris MD at [facility] Procedures Comments Procedure Name Priority Date/Time Associated Diag nosis C SPINE 6 OR MORE VIEWS Routine 08/06/2019 Neck p ain 7:40 AM SAP ARIBA CONSULTANT MRI C-SPINE EXTERNAL Routine 06/25/2019 IMAGING 12:00 AM SAP ARIBA CONSULTANT from Last 3 Months Results * C SPINE 6 OR MORE VIEWS (08/06/2019 7:40 AM SAP ARIBA CONSULTANT) Specimen Impressions Performed At 1. There is [...] Interface, Radiant Results - 08/06/2019 8:57 AM SAP ARIBA CONSULTANT Exam: C SPINE 6 OR MORE VIEWS [...] City/State/Zipcode Ph one Number [facility] * MRI C-SPINE EXTERNAL IMAGING (06/25/2019 12:00 AM SAP ARIBA CONSULTANT) Specimen Narrative Performed At This order has been auto finalized and does not contain a result. from Last 3 Months Insurance Type Payer Benefit Subscriber ID Effective Phone Address Plan / Dates Group PPO BCBS [place] BCBS [place] xxxxxxxxxxxx 2018-P PREF CARE resent [place] Medicaid UHC MEDICAID [place] UHC xxxxxxxxxxx 2019- COMMUNITY Present PLAN [place] Advance Directives Patient Parcel Carrier Explanation Type Date Recorded Advance 10/22/2018 6:32 AM Directive/DPOA Date Inactivated Comments Code Status Date Activated 11/03/2018 4:22 PM Full Code 10/19/2018 11:19 PM Provider has discussed Code Status No, more discussi on w/Patient or Family? needed
--- OUTSIDE RECORDS SUMMARY | 2019-08-12 15:27 | XMS REPORT | Encounter Summary ---
Author Author [facility] Organization [facility] Address Unknown Phone Unavailable Care Team Providers Care Waste Machine Tender Name Role Phone Tamia Fonseca MD PCP Reason for Referral * Consult, Test & Treat (Routine) Referred By Contact Referred To Contact Status Reason Specialty Diagnoses / Procedures Jack Sutton MD [address] [place] [address] New Request Specialty Services Diagnoses Required Degenerative disc disease, cervical Cervical strain, acute, initial encounter Reason for Visit * Reason Comments New Patient neck pain Pain Stiffness * Consult, Test & Treat (Routine) Referred By Contact Referred To Contact Status Reason Specialty Diagnoses / Procedures Kelton Murray, FIREFIGHTER MARINE [address] [place] [address] [facility] [address] [place] [address] No Auth Needed Orthopedic Surgery Encounter Details Care Team Description Date Type Department Jack Sutton MD [address] [place], [place] [phone] Degenerative disc disease, cervical (Alma murali Dx); Cervical strain, acute, initial encounter 08/06/2019 Office Visit [facility] [address] [address] Social History Date Tobacco Use [...] Comments Vital Sign 159/103 08/06/2019 7:39 AM FLASK HANDLER Blood Pressure 82 08/06/2019 7:39 AM FLASK HANDLER Pulse 36.3 C (97.3 F) 08/06/2019 7:39 AM FLASK HANDLER Temperature - - Respiratory Rate 96% 08/06/2019 7:39 AM FLASK HANDLER Oxygen Saturation - - Inhaled Oxygen Concentration 55.3 kg (122 lb) 08/06/2019 7:39 AM FLASK HANDLER Weight 157.5 cm (5' 2") 08/06/2019 7:39 AM FLASK HANDLER Height 22.31 08/06/2019 7:39 AM FLASK HANDLER Body Mass Index documented in this encounter Functional Status Date of Assessment Functional Status Response 08/06/2019 Does the patient have a hearing impairment: No 08/06/2019 Does the patient have a visual impairment: Yes documented as of this encounter Progress Notes * Jack Sutton MD - 08/06/2019 7:45 AM FLASK HANDLER [facility] H[facility]ORY [facility] PHYSICAL Chief Complaint Patient presents with Neck - Pain, Stiffness New Patient neck pain Vitals: 08/06/19 0739 BP: (!) 159/103 Pulse: 82 Temp: 36.3 C (97.3 F) SpO2: 96% Weight: 55.3 kg (122 lb) Height: 157.5 cm (62") Medical History: Diagnosis Date Acute headache Aortic valve disease Arthritis Arthritis Asthma CAD (coronary artery disease) COPD (chronic obstructive pulmonary disease) (HCC) COPD (chronic obstructive pulmonary disease) (HCC) Depression Disruption or dehiscence of closure of sternum or sternotomy Edentulous 2017 Poor dentition Emphysema lung (HCC) Endometriosis Heart attack (HCC) Hyperlipidemia Hypertension, essential Nausea Non-healing wound of lower extremity Paroxysmal atrial fibrillation (HCC) Pneumothorax tripped over a Cervilenz toy, had a pneumothorax, had lung surgery in [facility] [place] Restless leg syndrome Surgical History: Procedure Laterality Date MASTOIDECTOMY - SIMPLE, TYMPANOPLASTY Right 10/29/2018 Performed by Sarath Paris MD at [facility] OR/Periop TRACHEOSTOMY PLANNED N/A 10/29/2018 Performed by Sarath Paris MD at [facility] OR/Periop BRAIN SURGERY infectionr emoved HAND SURGERY carpel tunnel release HEART VALVE SURGERY HX CORONARY ARTERY BYPASS GRAFT HYSTERECTOMY OOPHORECTOMY ORTHOPEDIC SURGERY ligament repair in december 2017 VASCULAR SURGERY No Known Allergies Current Outpatient Medications on File Prior to Visit Medication Sig Dispense Refill acetaminophen (TYLENOL) 160 mg/5 mL oral solution 20.3 mL by Per NG tube rou te every 4 hours as needed (Temp >38.3C; please notify provider if administered for temp). 240 mL 0 ascorbic acid (VITAMIN C) 500 mg tablet one tablet by Per NG tube route weston y. 90 tablet 3 aspirin 81 mg chewable tablet one tablet by Per OG Tube route daily. Take th food. 90 tablet 3 atorvastatin (LIPITOR) 20 mg tablet one tablet by Per OG Tube route at [facility] daily. 90 tablet 3 budesonide respule (PULMICORT) 0.5 mg/2 mL nebulizer solution Inhale 2 mL so lution by nebulizer as directed twice daily. 60 mL 3 chlorhexidine gluconate (PERIDEX) 0.12 % solution Swish and Spit 15 mL by [facility] as directed twice daily. collagenase (SANTYL) 250 unit/g topical ointment Apply to bilateral lower le g wounds twice daily, secure sressings with tape. Change dressings daily 0 docusate (COLACE) 50 mg/5 mL oral solution 10 mL by Per OG Tube route twice daily. famotidine (PEPCID) 40 mg/5 mL (8 mg/mL) susp oral suspension 2.5 mL by Per NG tube route twice daily. 50 mL 0 furosemide (LASIX) 20 mg tablet Take 20 mg by mouth every morning. heparin (porcine) PF 5,000units/0.5mL injection syringe Inject 0.5 mL under the skin twice daily. ipratropium/albuterol (COMBIVENT RESPIMAT) 20-100 mcg/actuation mist inhaler Inhale one puff by mouth into the lungs every 4 hours as needed. melatonin 3 mg tab Take one tablet by mouth at bedtime daily. metoprolol(#) (LOPRESSOR) 10 mg/mL Take 3.75 mL via feeding tube twice daily . milk of magnesia (CONC) 2,400 mg/10 mL oral suspension 10 mL by Per OG Tube route daily. 360 mL nicotine (NICODERM CQ STEP 1) 21 mg/day patch Apply one patch to top of skin as directed every 24 hours. Rotate patch location. Indications: Stop Smoking 28 patch 2 oxyCODONE (ROXICODONE) 1 mg/mL oral solution 5-15 mL by Per NG tube route ev deborah 4 hours as needed 0 potassium chloride 20 mEq/15 mL oral solution 15 mL by Per OG Tube route jamey ly. 473 mL 0 risperiDONE (RISPERDAL) 1 mg tablet Take one tablet by mouth at bedtime weston y. senna/docusate (SENOKOT-S) 8.8/50 mg /10 mL solution 10 mL by Per OG Tube ro judy twice daily. sertraline (ZOLOFT) 50 mg tablet Take one tablet by mouth at bedtime daily. traMADol (ULTRAM) 50 mg tablet Take 50 mg by mouth every 8 hours. zinc sulfate 220 mg (50 mg elemental zinc) capsule one capsule by Per NG tub e route daily. No current facility-administered medications on file prior to visit. family history includes Arthritis in her sister; Back pain in her sister; Cancer in her father and mother; Diabetes in her sister; Heart Attack in her sister; H eart Disease in her brother; Heart problem in her brother; Hypertension in her b rother; Neck Pain in her sister; Psoriasis in her sister. 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 HENT: Negative. Eyes: Negative. Respiratory: Negative. Cardiovascular: Negative. Gastrointestinal: Negative. Endocrine: Negative. Genitourinary: Negative. Musculoskeletal: Positive for back pain, gait problem, neck pain and neck stiffn ess. Skin: Negative. Allergic/Immunologic: Negative. Hematological: Negative. Psychiatric/Behavioral: Negative. HPI / PHYSICAL EXAM / RADIOGRAPHIC EVALUATION / IMPRESSION / PLAN Dictation on: 08/06/2019 8:23 AM by: JACK SUTTON [LCORDELL] K HANDLER documented in this encounter Plan of Treatment Order Schedule Name Type Priority Associated Diag noses Ordered: 08/06/2019 AMB REFERRAL TO PHYSICAL Outpatient Routine Degen erative disc OR OCCUPATIONAL THERAPY Referral disease, cervi john Cervical strain, acute, initial encounter documented as of this encounter Visit Diagnoses Diagnosis Degenerative disc disease, cervical - P rimary Degeneration of cervical intervertebral disc Cervical strain, acute, initial encount er documented in this encounter
--- OUTSIDE RECORDS SUMMARY | 2019-08-12 15:28 | XMS REPORT ---
Author Author Rocío BAIRD Organization [facility] Address [address] [place] [address] Care Team Providers Care Senior Relationship Manager Name Role Phone LAUREN BAIRD Unavailable PROBLEMS Type Condition ICD9-CM Code GDE32-WX Code Onset Dates Condition S tatus SNOMED Code Problem Degenerative disc disease, cervical M50.30 Active 47626912 Problem Arthritis M19.90 Active 7786289 Problem Neuropathy G62.9 Active 917590433 Problem Gout M10.9 Active 17481807 Problem Vitamin D deficiency E55.9 Active 75196335 Problem Restless leg syndrome G25.81 Active 74109899 Problem Acute left-sided low back pain with left-sided sciatica M54.42 Active 503266443 Problem Psoriatic arthritis L40.50 Active 821079211 Problem Panlobular emphysema J43.1 Active 8661006 Problem Acute right-sided low back pain with right-sided sciatica M54.41 Active 111936729 Problem Restless legs G25.81 Active 073722 08 Problem Chronic fatigue R53.82 Active 8422 9001 ALLERGIES No Information ENCOUNTERS Encounter Location Date Diagnosis [facility] [address] [facility] [id number] [address] [place] [phone] 26 Jan, 2019 Acute left-sided low back pa in with left-sided sciatica M54.42 [facility] [address] [id number] [address] [place] [id number] 20 Jan, 2019 Acute left-sided low back pa in with left-sided sciatica M54.42 [facility] [address] [id number] [address] [place] [id number] 14 Jan, 2019 [facility] [address] [facility] [id number] [address] [place] [id number] 13 Jan, 2019 [facility] [address] [id number] [address] [place] [id number] Jan, Vitamin D deficiency E55.9 [facility] [address] [id number] [address] [place] [id number] Jan, Restless legs G25.81 and Chr onic fatigue R53.82 [facility] [address] [id number] [address] [place] [phone] December, Restless legs G25.81 and Chr onic fatigue R53.82 [facility] [address] [id number] [address] [place] [phone] December, [facility] [address] [id number] [address] [place] [phone] December, [facility] [address] [id number] [address] [place] [phone] December, [facility] [address] [id number] [address] [place] [phone] December, 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 [facility] [address] [id number] [address] [place] [id number] December, Bilateral otitis media with effusion H65.93 [facility] [address] [id number] [address] [place] [phone] Nov, [facility] [address] [id number] [address] [place] [id number] Nov, [facility] [address] [id number] [address] [place] [phone] Nov, 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 [facility] [address] [id number] [address] [place] [phone] Nov, 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 [facility] [address] [id number] [address] [place] [id number] Nov, Encounter for feeding tube p lacement Z46.59 [facility] [address] [facility] [id number] [address] [place] [id number] Nov, 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 [facility] [address] [facility] [id number] [address] [place] [id number] Sep, [facility] [address] [facility] [id number] [address] [place] [id number] Sep, Coronary artery disease of a [facility] vein bypass graft with stable angina pectoris I25.718 ; Panlobular emphysema J43.1 and Neuropathy G62.9 [place] [address] [facility] [id number] [address] [place] [phone] Sep, [place] [address] [place] [id number] [place] [phone] Sep, [facility] [address] [place] [id number] [address] [place] [id number] Aug, [place] [address] [place] [id number] [address] [place] [phone] Aug, [place] [address] [place] [id number] [address] [place] [id number] Aug, Status post coronary artery bypass graft Z95.1 ; History of surgical site infection Z86.19 ; Closed fracture of coccyx, initial encounter S32.2XXA and Nausea R11.0 [place] [address] [facility] [id number] [address] [place] [phone] Aug, [place] [address] [place] [id number] [address] [place] [phone] May, Degenerative disc disease, c ervical M50.30 [facility] [address] [place] [id number] [address] [place] [phone] May, [facility] [address] [place] [id number] [address] [place] [phone] May, [facility] [address] [id number] [address] [place] [id number] May, Panlobular emphysema J43.1 ; Arthritis M19.90 ; Tobacco abuse Z72.0 and Tobacco abuse counseling Z71.6 [facility] [address] [facility] [id number] [address] [place] [phone] May, [facility] [address] [facility] [id number] [address] [place] [phone] May, Acute right-sided low back p ain with right-sided sciatica M54.41 [facility] [address] [facility] [id number] [address] [place] [id number] 30 Apr, 2017 Thrush, oral B37.0 [facility] [address] [facility] [id number] [address] [place] [phone] Apr, Cough R05 and Bronchitis J40 [facility] [address] [id number] [address] [place] [phone] Apr, Acute right-sided low back p ain with right-sided sciatica M54.41 [facility] [address] [facility] [id number] [address] [place] [id number] Apr, Psoriatic arthritis L40.50 a nd Arthritis M19.90 [facility] [address] [id number] [address] [place] [phone] Mar, Neuropathy G62.9 and Psoriat ic arthritis L40.50 [facility] [address] [id number] [address] [place] [phone] Mar, Neuropathy G62.9 [place] [address] [facility] [id number] [address] [place] [phone] Mar, [facility] [address] [facility] [id number] [address] [place] [phone] Mar, [facility] [address] [facility] [id number] [address] [place] [phone] 04 Mar, 2017 [facility] [address] [place] [id number] [address] [place] [phone] Feb, Acute cystitis with hematuri a N30.01 and Dysuria R30.0 [facility] [address] [place] [id number] [address] [place] [phone] Feb, Neuropathy G62.9 and Arthrit is M19.90 [facility] [address] [id number] 16 Jun, 2015 Restless leg syndrome G25.81 ; Gout M10.9 and Degenerative disc disease, cervical M50.30 [place] [id number] [place] [phone] Jun, [place] [address] [place] [id number] [address] [place] [phone] Jun, Psoriatic arthritis L40.50 a nd Restless leg syndrome G25.81 IMMUNIZATIONS No Known Immunizations SOCIAL HISTORY Never Assessed REASON FOR VISIT Needs referral PLAN OF CARE VITAL SIGNS MEDICATIONS Unknown Medications RESULTS No Results PROCEDURES No Known procedures INSTRUCTIONS MEDICATIONS ADMINISTERED No Known Medications MEDICAL (GENERAL) HISTORY Type Description Date Medical History osteoarthritis Medical History psoriatic arthritis (suspected) Medical History Metabolic X Medical History feeding tube - brain surgery/septic/trac h Surgical History hysterectomy, total with bilateral salpi morrison-oophorectomy (BSO) 2008 Surgical History bital carpal tunnel Surgical History fluid drained from lung and lung scrapin g 02/2015 Surgical History bypass surgery Surgical History brain surgery/septic/trach / resp failur e 10/2018 Hospitalization History Fall resulting in fluid/bloo d consolidation around lung.([place]) 02/2015 Hospitalization History Bacterial pneumonia and sepsis 01/31 17 Hospitalization History Surgery Hospitalization History hospitalized for respiratory acidosi s 05/2017 Hospitalization History [facility] pneumonia 08/2018 Hospitalization History [facility] - -2-3 weeks 10/2018 Hospitalization History [facility] 11/2018 Hospitalization History [facility] -back pain 01/2019
--- OUTSIDE RECORDS SUMMARY | 2019-08-12 15:30 | XMS REPORT | Continuity of Care Document ---
Author Organization Unknown Address Unknown Phone Unavailable Allergies Active Description Code Type Severity Reaction Onset Reported/Identified Relationship to Patient Clinical Status Yes No Known Drug Allergies [id number] Drug Allergy Unknown N/A 08/23/2018 Medications There is no data. Problems Date Dx Coded Attending Type Code Diagnosis Diagnosed By KAMRON RAYMOND, VENKAT Rodriguez Ot B95.5 UNSP STREPTOCOCCUS THE CAUSE OF DISEA VENKAT LUNDY MD Ot R78.81 BACTEREMIA 07/13/1335 MAULIK COLLIER MD, Ot M54.2 CERVICALGIA [...] MD Ot M54.2 CERVICALGIA 10/13/2016 ANASTASIA TEJEDA MD, Ot M54. 2 CERVICALGIA 11/02/2016 ANASTASIA TEJEDA MD Ot M54. 2 CERVICALGIA 11/13/2016 ANASTASIA TEJEDA MD Ot M54. 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 2 CERVICALGIA 11/15/2016 ESTEBAN URIARTE Ot F17.210 NICOTINE DEPENDENCE, CIGARETTES, UNCOMPL 11/15/2016 ESTEBAN URIARTE Ot J20.9 ACUTE BRONCHITIS, UNSPECIFIED 11/15/2016 ESTEBAN URIARTE Ot K08.9 DISORDER OF TEETH AND SUPPORTING STRUCTU 11/15/2016 ESTEBAN URIARTE Ot Z79.899 OTHER INTERMEDIATE (CURRENT) DRUG THERAPY 11/15/2016 ESTEBAN URIARTE Ot Z98.890 OTHER SPECIFIED POSTPROCEDURAL STATES 11/17/2016 ANASTASIA TEJEDA MD Ot M54. 2 CERVICALGIA 12/12/2016 ANASTASIA TEJEDA MD Ot M54. 2 CERVICALGIA 12/13/2016 ANASTASIA TEJEDA MD Ot A41. 9 SEPSIS, UNSPECIFIED ORGANISM 12/13/2016 ANASTASIA TEJEDA MD Ot E78. 00 PURE HYPERCHOLESTEROLEMIA, UNSPECIFIED 12/13/2016 ANASTASIA TEJEDA MD Ot F17.210 NICOTINE DEPENDENCE, CIGARETTES, UNCOMPL 12/13/2016 ANASTASIA TEJEDA MD Ot J18. 9 PNEUMONIA, UNSPECIFIED ORGANISM 12/13/2016 ANASTASIA TEJEDA MD Ot A41. 9 SEPSIS, UNSPECIFIED ORGANISM 12/13/2016 ANASTASIA TEJEDA MD Ot E78. 00 PURE HYPERCHOLESTEROLEMIA, UNSPECIFIED 12/13/2016 ANASTASIA TEJEDA MD Ot F17.210 NICOTINE DEPENDENCE, CIGARETTES, UNCOMPL 12/13/2016 ANASTASIA TEJEDA MD Ot J18. 9 PNEUMONIA, UNSPECIFIED ORGANISM 12/15/2016 ANASTASIA TEJEDA MD Ot A41. 9 SEPSIS, UNSPECIFIED ORGANISM 12/15/2016 ANASTASIA TEJEDA MD Ot E78. 00 PURE HYPERCHOLESTEROLEMIA, UNSPECIFIED 12/15/2016 ANASTASIA TEJEDA MD Ot F17.210 NICOTINE DEPENDENCE, CIGARETTES, UNCOMPL 12/15/2016 ANASTASIA TEJEDA MD Ot J18. 9 PNEUMONIA, UNSPECIFIED ORGANISM 12/15/2016 ANASTASIA TEJEDA MD Ot A41. 9 SEPSIS, UNSPECIFIED ORGANISM 12/15/2016 ANASTASIA TEJEDA MD Ot E78. 00 PURE HYPERCHOLESTEROLEMIA, UNSPECIFIED 12/15/2016 ANASTASIA TEJEDA MD Ot F17.210 NICOTINE DEPENDENCE, CIGARETTES, UNCOMPL 12/15/2016 ANASTASIA TEJEDA MD Ot J18. 9 PNEUMONIA, UNSPECIFIED ORGANISM 12/15/2016 ANASTASIA TEJEDA MD Ot A41. 9 SEPSIS, UNSPECIFIED ORGANISM 12/15/2016 ANASTASIA TEJEDA MD Ot E78. 00 PURE HYPERCHOLESTEROLEMIA, UNSPECIFIED 12/15/2016 ANASTASIA TEJEDA MD Ot F17.210 NICOTINE DEPENDENCE, CIGARETTES, UNCOMPL 12/15/2016 ANASTASIA TEJEDA MD Ot J18. 9 PNEUMONIA, UNSPECIFIED ORGANISM 12/16/2016 ANASTASIA TEJEDA MD Ot A41. 9 SEPSIS, UNSPECIFIED ORGANISM 12/16/2016 ANASTASIA TEJEDA MD Ot E78. 00 PURE HYPERCHOLESTEROLEMIA, UNSPECIFIED 12/16/2016 ANASTASIA TEJEDA MD Ot F17.210 NICOTINE DEPENDENCE, CIGARETTES, UNCOMPL 12/16/2016 ANASTASIA TEJEDA MD Ot J18. 9 PNEUMONIA, UNSPECIFIED ORGANISM 01/18/2017 ANASTASIA TEJEDA MD Ot M54. 2 CERVICALGIA 01/18/2017 ANASTASIA TEJEDA MD, Ot J18. 9 PNEUMONIA, UNSPECIFIED ORGANISM 01/19/2017 DAREN ANGELES MD [...] OTHER SPECIFIED FACTORS, INI 01/19/2017 ANASTASIA TEJEDA MD, Ot M54. 2 CERVICALGIA 01/19/2017 ANASTASIA TEJEDA MD, Ot J18. 9 PNEUMONIA, UNSPECIFIED ORGANISM 01/20/2017 DAREN ANGELES MD Ot F17.210 NICOTINE DEPENDENCE, CIGARETTES, UNCOMPL 01/20/2017 [...] FACTORS, INI 02/24/2017 ANASTASIA TEJEDA MD, Ot J18. 9 PNEUMONIA, UNSPECIFIED ORGANISM 02/25/2017 DAREN ANGELES MD, Ot F17.210 NICOTINE DEPENDENCE, CIGARETTES, UNCOMPL 02/25/2017 DAREN ANGELES MD Ot M19.90 UNSPECIFIED OSTEOARTHRITIS, UNSPECIFIED 02/25/2017 DAREN ANGELES MD Ot M25.512 PAIN IN LEFT SHOULDER 02/25/2017 DAREN ANGELES MD Ot S39.011A STRAIN OF MUSCLE, FASCIA AND TENDON OF A 02/25/2017 DAREN ANGELES MD Ot S91.332A PUNCTURE WOUND WITHOUT FOREIGN BODY, LEF 02/25/2017 DAREN ANGELES MD Ot X58.XXXA EXPOSURE TO OTHER SPECIFIED FACTORS, INI 04/27/2017 ANASTASIA TEJEDA MD, Ot J18. 9 PNEUMONIA, UNSPECIFIED ORGANISM 05/07/2017 LAUREN BAIRD Ot M48.06 SPINAL STENOSIS, LUMBAR REGION 05/19/2017 ANASTASIA TEJEDA MD Ot M54. 2 CERVICALGIA 05/19/2017 ANASTASIA TEJEDA MD, Ot J18. 9 PNEUMONIA, UNSPECIFIED ORGANISM 05/19/2017 JENNY PEREZ MD Ot E87 .2 ACIDOSIS 05/19/2017 JENNY PEREZ MD Ot F11.10 OPIOID ABUSE, UNCOMPLICATED 05/19/2017 JENNY PEREZ MD Ot J44 .1 CHRONIC OBSTRUCTIVE PULMONARY DISEASE W 05/19/2017 CHRIS RAYMOND, JENNY Nguyễn Ot L40.50 ARTHROPATHIC PSORIASIS, UNSPECIFIED 05/19/2017 CHRIS RAYMOND, JENNY Nguyễn Ot R06.03 ACUTE RESPIRATORY DISTRESS 05/24/2017 LAUREN BAIRD STAKING TECHNICIAN Ot M48.06 SPINAL STENOSIS, LUMBAR REGION 06/02/2017 LAUREN BAIRD STAKING TECHNICIAN Ot M48.06 SPINAL STENOSIS, LUMBAR REGION 06/15/2017 PERLA GOLDEN ACUTE CARE PHYSICIAN Ot F17.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, UNSPECIFIED, UNCOMP 06/15/2017 PERLA GOLDEN ACUTE CARE PHYSICIAN Ot J18.9 PNEUMONIA, UNSPECIFIED ORGANISM 06/15/2017 PERLA GOLDEN ACUTE CARE PHYSICIAN Ot R06.00 DYSPNEA, UNSPECIFIED 06/23/2017 TIA ROLON ACUTE CARE PHYSICIAN Ot Z12.31 ENCNTR SCREEN MAMMOGRAM FOR MALIGNANT NE 07/10/2017 TIA ROLON APRN Ot Z12.31 ENCNTR SCREEN MAMMOGRAM FOR MALIGNANT NE 07/19/2017 NIKHIL RAYMOND, ANASTASIA Torres Ot J18. 9 PNEUMONIA, UNSPECIFIED ORGANISM 07/19/2017 LAUREN BAIRD STAKING TECHNICIAN Ot M48.06 SPINAL STENOSIS, LUMBAR REGION 07/19/2017 LAUREN BAIRD STAKING TECHNICIAN Ot M48.06 SPINAL STENOSIS, LUMBAR REGION 07/25/2017 PERLA GOLDEN ACUTE CARE PHYSICIAN Ot F17.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, UNSPECIFIED, UNCOMP 07/25/2017 PERLA GOLDEN ACUTE CARE PHYSICIAN Ot J18.9 PNEUMONIA, UNSPECIFIED ORGANISM 07/25/2017 PERLA GOLDEN ACUTE CARE PHYSICIAN Ot J44.9 CHRONIC OBSTRUCTIVE PULMONARY DISEASE, U 07/25/2017 PERLA GOLDEN ACUTE CARE PHYSICIAN Ot R06.00 DYSPNEA, UNSPECIFIED 08/31/2017 PERLA GOLDEN ACUTE CARE PHYSICIAN Ot F17.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, UNSPECIFIED, UNCOMP 08/31/2017 PERLA GOLDEN ACUTE CARE PHYSICIAN Ot J18.9 PNEUMONIA, UNSPECIFIED ORGANISM 08/31/2017 PERLA GOLDEN ACUTE CARE PHYSICIAN Ot J44.9 CHRONIC OBSTRUCTIVE PULMONARY DISEASE, U 08/31/2017 PERLA GOLDEN ACUTE CARE PHYSICIAN Ot R06.00 DYSPNEA, UNSPECIFIED 09/06/2017 LAUREN BAIRD STAKING TECHNICIAN Ot M48.06 SPINAL STENOSIS, LUMBAR REGION 10/19/2017 TIA ROLON APRN Ot M47.812 SPONDYLOSIS W/O MYELOPATHY OR RADICULOPA 10/22/2017 PERLA GOLDEN APRN Ot F17.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, UNSPECIFIED, UNCOMP 10/22/2017 PERLA GOLDEN ACUTE CARE PHYSICIAN Ot J18.9 PNEUMONIA, UNSPECIFIED ORGANISM 10/22/2017 PERLA GOLDEN ACUTE CARE PHYSICIAN Ot J44.9 CHRONIC OBSTRUCTIVE PULMONARY DISEASE, U 10/22/2017 PERLA GOLDEN APRN Ot R06.00 DYSPNEA, UNSPECIFIED 10/27/2017 NIKHIL RAYMOND, ANASTASIA Torres Ot M54. 2 CERVICALGIA 10/27/2017 NIKHIL RAYMOND, ANASTASIA Torres Ot J18. 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 10/27/2017 PERLA GOLDEN ACUTE CARE PHYSICIAN Ot F17.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, UNSPECIFIED, UNCOMP 10/27/2017 PERLA GOLDEN APRN Ot J18.9 PNEUMONIA, UNSPECIFIED ORGANISM 10/27/2017 PERLA GOLDEN ACUTE CARE PHYSICIAN Ot J44.9 CHRONIC OBSTRUCTIVE PULMONARY DISEASE, U 10/27/2017 PERLA GOLDEN APRN Ot R06.00 DYSPNEA, UNSPECIFIED 11/01/2017 TIA ROLON APRN Ot M47.812 SPONDYLOSIS W/O MYELOPATHY OR RADICULOPA 11/24/2017 AMIRA RAYMOND, MAULIK Nguyễn Ot M54.2 CERVICALGIA 11/24/2017 MAULIK COLLIER MD Ot M75.31 CALCIFIC TENDINITIS OF RIGHT SHOULDER 12/07/2017 ALEE BRIGHT DO, Ot M75.111 INCOMPLETE ROTATR-CUFF TEAR/RUPTR OF R S 12/07/2017 ALEE BRIGHT DO, Ot M75.51 BURSITIS OF RIGHT SHOULDER 12/07/2017 ALEE BRIGHT DO, Ot M75.91 SHOULDER LESION, UNSPECIFIED, RIGHT SHOU 12/07/2017 ALEE BRIGHT DO, Ot M75.111 INCOMPLETE ROTATR-CUFF TEAR/RUPTR OF R S 12/07/2017 ALEE BRIGHT DO, Ot M75.51 BURSITIS OF RIGHT SHOULDER 12/20/2017 ALEE BRIGTH DO, Ot M75.111 INCOMPLETE ROTATR-CUFF TEAR/RUPTR OF R S 12/20/2017 ALEE BRIGHT DO Ot M75.51 BURSITIS OF RIGHT SHOULDER 12/28/2017 NIKHIL RAYMOND, ANASTASIA Torres Ot M54. 2 CERVICALGIA 12/28/2017 ANASTASIA TEJEDA MD Ot J18. 9 PNEUMONIA, UNSPECIFIED ORGANISM 12/28/2017 LAUREN BAIRD Ot M48.06 SPINAL STENOSIS, LUMBAR REGION 12/28/2017 TIA ROLON APRN Ot M47.812 SPONDYLOSIS W/O MYELOPATHY OR RADICULOPA 12/28/2017 PERLA GOLDEN ACUTE CARE PHYSICIAN Ot F17.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, UNSPECIFIED, UNCOMP 12/28/2017 PERLA GOLDEN APRN Ot J18.9 PNEUMONIA, UNSPECIFIED ORGANISM 12/28/2017 PERLA GOLDEN APRN Ot J44.9 CHRONIC OBSTRUCTIVE PULMONARY DISEASE, U 12/28/2017 PERLA GOLDEN APRN Ot R06.00 DYSPNEA, UNSPECIFIED 12/28/2017 ALEE BRIGHT DO Ot M75.111 INCOMPLETE ROTATR-CUFF TEAR/RUPTR OF R S 12/28/2017 ALEE BRIGHT DO Ot M75.51 BURSITIS OF RIGHT SHOULDER 12/28/2017 ANASTASIA TEJEDA MD, Ot J18. 9 PNEUMONIA, UNSPECIFIED ORGANISM 12/28/2017 LAUREN BAIRD Ot [...] NICOTINE DEPENDENCE, UNSPECIFIED, UNCOMP 12/28/2017 PERLA GOLDEN ACUTE CARE PHYSICIAN Ot J18.9 PNEUMONIA, UNSPECIFIED ORGANISM 12/28/2017 PERLA GOLDEN ACUTE CARE PHYSICIAN Ot J44.9 CHRONIC OBSTRUCTIVE PULMONARY DISEASE, U 12/28/2017 PERLA OGLDEN ACUTE CARE PHYSICIAN Ot R06.00 DYSPNEA, UNSPECIFIED 02/16/2018 NIKHIL RAYMOND, ANASTASIA Torres Ot M54. 2 CERVICALGIA 02/16/2018 NIKHIL RAYMOND, ANASTASIA Torres Ot J18. 9 PNEUMONIA, UNSPECIFIED ORGANISM 02/16/2018 LAUREN BAIRD Ot M48.06 SPINAL STENOSIS, LUMBAR REGION 02/16/2018 PERLA GOLDEN APRN Ot F17.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, UNSPECIFIED, UNCOMP 02/16/2018 PERLA GOLDEN ACUTE CARE PHYSICIAN Ot J18.9 PNEUMONIA, UNSPECIFIED ORGANISM 02/16/2018 PERLA [...] M75.51 BURSITIS OF RIGHT SHOULDER 06/05/2018 LAUREN ABIRD Ot M48.06 SPINAL STENOSIS, LUMBAR REGION 06/05/2018 LAUREN BAIRD Ot M48.06 SPINAL STENOSIS, LUMBAR REGION 08/06/2018 TRAV RAYMOND, CHANDRIKA Villegas Ot E78. 00 PURE HYPERCHOLESTEROLEMIA, UNSPECIFIED 08/06/2018 TRAV RAYMOND, CHANDRIKA Villegas Ot F17.210 NICOTINE DEPENDENCE, CIGARETTES, UNCOMPL 08/06/2018 TRAV RAYMOND, CHANDRIKA Villegas Ot F41. 9 ANXIETY DISORDER, UNSPECIFIED 08/06/2018 CHANDRIKA RAVI MD Ot I21. 9 ACUTE MYOCARDIAL INFARCTION, UNSPECIFIED 08/06/2018 CHANDRIKA RAVI MD Ot I25. 10 ATHSCL HEART DISEASE OF [place] CORONARY 08/06/2018 TRAV RAYMOND, CHANDRIKA Villegas Ot J18. 9 PNEUMONIA, UNSPECIFIED ORGANISM 08/06/2018 TRAV RAYMOND, CHANDRIKA Villegas Ot J44. 0 CHRONIC OBSTRUCTIVE PULMON DISEASE W ACU 08/06/2018 TRAV RAYMOND, CHANDRIKA Villegas Ot J96. 21 ACUTE AND CHRONIC RESPIRATORY FAILURE [place] 08/06/2018 TRAV RAYMOND, CHANDRIKA Villegas Ot Z95. 1 PRESENCE OF AORTOCORONARY BYPASS GRAFT 08/08/2018 NIKHIL RAYMOND, ANASTASIA Torres Ot M54. 2 CERVICALGIA 08/08/2018 ANASTASIA TEJEDA MD, Ot J18. 9 PNEUMONIA, UNSPECIFIED ORGANISM 08/08/2018 TIA ROLON APRN Ot M47.812 SPONDYLOSIS W/O MYELOPATHY OR RADICULOPA 08/08/2018 PERLA GOLDEN APRN Ot F17.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, UNSPECIFIED, UNCOMP 08/08/2018 PERLA GOLDEN APRN Ot J18.9 PNEUMONIA, UNSPECIFIED ORGANISM 08/08/2018 PERLA GOLDEN APRN Ot J44.9 CHRONIC OBSTRUCTIVE PULMONARY DISEASE, U 08/08/2018 PERLA GOLDEN APRN Ot R06.00 DYSPNEA, UNSPECIFIED 08/08/2018 ALEE BRIGHT DO Ot M75.111 INCOMPLETE ROTATR-CUFF TEAR/RUPTR OF R S 08/08/2018 ALEE BRIGHT DO Ot M75.51 BURSITIS OF RIGHT SHOULDER 08/09/2018 ANGELITO ABERNATHY SARABJIT Ot D64.9 ANEMIA, UNSPECIFIED 08/09/2018 ANGELITO ABERNATHY SARABJIT Ot D72.82 3 LEUKEMOID REACTION 08/09/2018 ANGELITO ABERNATHY SARABJIT Ot E78.5 HYPERLIPIDEMIA, UNSPECIFIED 08/09/2018 ANGELITO ABERNATHY SARABJIT Ot G89.18 OTHER ACUTE POSTPROCEDURAL PAIN 08/09/2018 ANGELITO ABERNATHY SARABJIT Ot I10 ESSENTIAL (PRIMARY) HYPERTENSION 08/09/2018 ANGELITO ABERNATHY SARABJIT Ot I21.9 ACUTE MYOCARDIAL INFARCTION, UNSPECIFIED 08/09/2018 ANGELITO ABERNATHY SARABJIT Ot I25.10 ATHSCL HEART DISEASE OF [place] CORONARY 08/09/2018 ANGELITO ABERNATHY SARABJIT Ot I25.5 ISCHEMIC CARDIOMYOPATHY 08/09/2018 EATON DO, SARABJIT Ot I50.21 ACUTE SYSTOLIC (CONGESTIVE) HEART FAILUR 08/09/2018 EATON DO, SARABJIT Ot I97.13 0 POSTPROCEDURAL HEART FAILURE FOLLOWING C 08/09/2018 EATON DO, SARABJIT Ot J18.1 LOBAR PNEUMONIA, UNSPECIFIED ORGANISM 08/09/2018 EATON DO, SARABJIT Ot J43.9 EMPHYSEMA, UNSPECIFIED 08/09/2018 EATON DO, SARABJIT Ot Z87.89 1 PERSONAL HISTORY OF NICOTINE DEPENDENCE 08/09/2018 EATON DO SARABJIT Ot Z95.1 PRESENCE OF AORTOCORONARY BYPASS GRAFT 08/10/2018 EATON DO, SARABJIT Ot D64.9 ANEMIA, UNSPECIFIED 08/10/2018 EATON DO, SARABJIT Ot D72.82 3 LEUKEMOID REACTION 08/10/2018 EATON DO, SARABJIT Ot E78.5 HYPERLIPIDEMIA, UNSPECIFIED 08/10/2018 EATON DO, SARABJIT Ot G89.18 OTHER ACUTE POSTPROCEDURAL PAIN 08/10/2018 ANGELITO DO SARABJIT Ot I10 ESSENTIAL (PRIMARY) HYPERTENSION 08/10/2018 EATON DO, SARABJIT Ot I21.9 ACUTE MYOCARDIAL INFARCTION, UNSPECIFIED 08/10/2018 EATON DO, SARABJIT Ot I25.10 ATHSCL HEART DISEASE OF [place] CORONARY 08/10/2018 ANGELITO DO, SARABJIT Ot I25.5 ISCHEMIC CARDIOMYOPATHY 08/10/2018 ANGELITO DO SARABJIT Ot I50.21 ACUTE SYSTOLIC (CONGESTIVE) HEART FAILUR 08/10/2018 EATON DO, SARABJIT Ot I97.13 0 POSTPROCEDURAL HEART FAILURE FOLLOWING C 08/10/2018 EATON DO, SARABJIT Ot J18.1 LOBAR PNEUMONIA, UNSPECIFIED ORGANISM 08/10/2018 EATON DO, SARABJIT Ot J43.9 EMPHYSEMA, UNSPECIFIED 08/10/2018 EATON DO, SARABJIT Ot Z87.89 1 PERSONAL HISTORY OF NICOTINE DEPENDENCE 08/10/2018 ANGELITO DO SARABJIT Ot Z95.1 PRESENCE OF AORTOCORONARY BYPASS GRAFT 08/11/2018 EATON DO, SARABJIT Ot D64.9 ANEMIA, UNSPECIFIED 08/11/2018 EATON DO, SARABJIT Ot D72.82 3 LEUKEMOID REACTION 08/11/2018 EATON DO, SARABJIT Ot E78.5 HYPERLIPIDEMIA, UNSPECIFIED 08/11/2018 EATON DO, SARABJIT Ot G89.18 OTHER ACUTE POSTPROCEDURAL PAIN 08/11/2018 EATON DO, SARABJIT Ot I10 ESSENTIAL (PRIMARY) HYPERTENSION 08/11/2018 EATON DO, SARABJIT Ot I21.9 ACUTE MYOCARDIAL INFARCTION, UNSPECIFIED 08/11/2018 EATON DO, SARABJIT Ot I25.10 ATHSCL HEART DISEASE OF [place] CORONARY 08/11/2018 EATON DO, SARABJIT Ot I25.5 ISCHEMIC CARDIOMYOPATHY 08/11/2018 EATON DO, SARABJIT Ot I50.21 ACUTE SYSTOLIC (CONGESTIVE) HEART FAILUR 08/11/2018 EATON DO, SARABJIT Ot I97.13 0 POSTPROCEDURAL HEART FAILURE FOLLOWING C 08/11/2018 EATON DO, SARABJIT Ot J18.1 LOBAR PNEUMONIA, UNSPECIFIED ORGANISM 08/11/2018 EATON DO, SARABJIT Ot J43.9 EMPHYSEMA, UNSPECIFIED 08/11/2018 EATON DO, SARABJIT Ot Z87.89 1 PERSONAL HISTORY OF NICOTINE DEPENDENCE 08/11/2018 EATON DO, SARABJIT Ot Z95.1 PRESENCE OF AORTOCORONARY BYPASS GRAFT 08/12/2018 EATON DO, SARABJIT Ot D64.9 ANEMIA, UNSPECIFIED 08/12/2018 EATON DO, SARABJIT Ot D72.82 3 LEUKEMOID REACTION 08/12/2018 EATON DO, SARABJIT Ot E78.5 HYPERLIPIDEMIA, UNSPECIFIED 08/12/2018 EATON DO, SARABJIT Ot G89.18 OTHER ACUTE POSTPROCEDURAL PAIN 08/12/2018 EATON DO, SARABJIT Ot I10 ESSENTIAL (PRIMARY) HYPERTENSION 08/12/2018 EATON DO, SARABJIT Ot I21.9 ACUTE MYOCARDIAL INFARCTION, UNSPECIFIED 08/12/2018 EATON DO, SARABJIT Ot I25.10 ATHSCL HEART DISEASE OF [place] CORONARY 08/12/2018 EATON DO, SARABJIT Ot I25.5 ISCHEMIC CARDIOMYOPATHY 08/12/2018 EATON DO, SARABJIT Ot I50.21 ACUTE SYSTOLIC (CONGESTIVE) HEART FAILUR 08/12/2018 EATON DO, SARABJIT Ot I97.13 0 POSTPROCEDURAL HEART FAILURE FOLLOWING C 08/12/2018 EATON DO, SARABJIT Ot J18.1 LOBAR PNEUMONIA, UNSPECIFIED ORGANISM 08/12/2018 EATON DO, SARABJIT Ot J43.9 EMPHYSEMA, UNSPECIFIED 08/12/2018 EATON DO, SARABJIT Ot Z87.89 1 PERSONAL HISTORY OF NICOTINE DEPENDENCE 08/12/2018 EATON DO, SARABJIT Ot Z95.1 PRESENCE OF AORTOCORONARY BYPASS GRAFT 08/12/2018 EATON DO, SARABJIT Ot D64.9 ANEMIA, UNSPECIFIED 08/12/2018 EATON DO, SARABJIT Ot D72.82 3 LEUKEMOID REACTION 08/12/2018 EATON DO, SARABJIT Ot E78.5 HYPERLIPIDEMIA, UNSPECIFIED 08/12/2018 EATON DO, SARABJIT Ot G89.18 OTHER ACUTE POSTPROCEDURAL PAIN 08/12/2018 EATON DO, SARABJIT Ot I10 ESSENTIAL (PRIMARY) HYPERTENSION 08/12/2018 EATON DO, SARABJIT Ot I21.9 ACUTE MYOCARDIAL INFARCTION, UNSPECIFIED 08/12/2018 EATON DO, SARABJIT Ot I25.10 ATHSCL HEART DISEASE OF [place] CORONARY 08/12/2018 EATON DO, SARABJIT Ot I25.5 ISCHEMIC CARDIOMYOPATHY 08/12/2018 EATON DO, SARABJIT Ot I50.21 ACUTE SYSTOLIC (CONGESTIVE) HEART FAILUR 08/12/2018 EATON DO, SARABJIT Ot I97.13 0 POSTPROCEDURAL HEART FAILURE FOLLOWING C 08/12/2018 EATON DO, SARABJIT Ot J18.1 LOBAR PNEUMONIA, UNSPECIFIED ORGANISM 08/12/2018 EATON DO, SARABJIT Ot J43.9 EMPHYSEMA, UNSPECIFIED 08/12/2018 EATON DO, SARABJIT Ot Z87.89 1 PERSONAL HISTORY OF NICOTINE DEPENDENCE 08/12/2018 EATON DO, SARABJIT Ot Z95.1 PRESENCE OF AORTOCORONARY BYPASS GRAFT 08/12/2018 EATON DO, SARABJIT Ot D64.9 ANEMIA, UNSPECIFIED 08/12/2018 EATON DO, SARABJIT Ot D72.82 3 LEUKEMOID REACTION 08/12/2018 EATON DO, SARABJIT Ot E78.5 HYPERLIPIDEMIA, UNSPECIFIED 08/12/2018 EATON DO, SARABJIT Ot G89.18 OTHER ACUTE POSTPROCEDURAL PAIN 08/12/2018 EATON DO, SARABJIT Ot I10 ESSENTIAL (PRIMARY) HYPERTENSION 08/12/2018 EATON DO, SARABJIT Ot I21.9 ACUTE MYOCARDIAL INFARCTION, UNSPECIFIED 08/12/2018 EATON DO, SARABJIT Ot I25.10 ATHSCL HEART DISEASE OF [place] CORONARY 08/12/2018 EATON DO, SARABJIT Ot I25.5 ISCHEMIC CARDIOMYOPATHY 08/12/2018 EATON DO, SARABJIT Ot I50.21 ACUTE SYSTOLIC (CONGESTIVE) HEART FAILUR 08/12/2018 EATON DO, SARABJIT Ot I97.13 0 POSTPROCEDURAL HEART FAILURE FOLLOWING C 08/12/2018 EATON DO, SARABJIT Ot J18.1 LOBAR PNEUMONIA, UNSPECIFIED ORGANISM 08/12/2018 EATON DO, SARABJIT Ot J43.9 EMPHYSEMA, UNSPECIFIED 08/12/2018 EATON DO, SARABJIT Ot Z87.89 1 PERSONAL HISTORY OF NICOTINE DEPENDENCE 08/12/2018 EATON DO, SARABJIT Ot Z95.1 PRESENCE OF AORTOCORONARY BYPASS GRAFT 08/12/2018 EATON DO, SARABJIT Ot D64.9 ANEMIA, UNSPECIFIED 08/12/2018 EATON DO, SARABJIT Ot D72.82 3 LEUKEMOID REACTION 08/12/2018 EATON DO, SARABJIT Ot E78.5 HYPERLIPIDEMIA, UNSPECIFIED 08/12/2018 EATON DO, SARABJIT Ot G89.18 OTHER ACUTE POSTPROCEDURAL PAIN 08/12/2018 EATON DO, SARABJIT Ot I10 ESSENTIAL (PRIMARY) HYPERTENSION 08/12/2018 EATON DO, SARABJIT Ot I21.9 ACUTE MYOCARDIAL INFARCTION, UNSPECIFIED 08/12/2018 EATON DO, SARABJIT Ot I25.10 ATHSCL HEART DISEASE OF [place] CORONARY 08/12/2018 EATON DO, SARABJIT Ot I25.5 ISCHEMIC CARDIOMYOPATHY 08/12/2018 EATON DO, SARABJIT Ot I50.21 ACUTE SYSTOLIC (CONGESTIVE) HEART FAILUR 08/12/2018 EATON DO, SARABJIT Ot I97.13 0 POSTPROCEDURAL HEART FAILURE FOLLOWING C 08/12/2018 EATON DO, SARABJIT Ot J18.1 LOBAR PNEUMONIA, UNSPECIFIED ORGANISM 08/12/2018 EATON DO, SARABJIT Ot J43.9 EMPHYSEMA, UNSPECIFIED 08/12/2018 EATON DO, SARABJIT Ot Z87.89 1 PERSONAL HISTORY OF NICOTINE DEPENDENCE 08/12/2018 EATON DO SARABJIT Ot Z95.1 PRESENCE OF AORTOCORONARY BYPASS GRAFT 08/13/2018 EATON DO, SARABJIT Ot D64.9 ANEMIA, UNSPECIFIED 08/13/2018 EATON DO, SARABJIT Ot D72.82 3 LEUKEMOID REACTION 08/13/2018 EATON DO, SARABJIT Ot E78.5 HYPERLIPIDEMIA, UNSPECIFIED 08/13/2018 EATON DO, SARABJIT Ot G89.18 OTHER ACUTE POSTPROCEDURAL PAIN 08/13/2018 EATON DO, SARABJIT Ot I10 ESSENTIAL (PRIMARY) HYPERTENSION 08/13/2018 EATON DO, SARABJIT Ot I21.9 ACUTE MYOCARDIAL INFARCTION, UNSPECIFIED 08/13/2018 EATON DO, SARABJIT Ot I25.10 ATHSCL HEART DISEASE OF [place] CORONARY 08/13/2018 EATON DO, SARABJIT Ot I25.5 ISCHEMIC CARDIOMYOPATHY 08/13/2018 EATON DO, SARABJIT Ot I50.21 ACUTE SYSTOLIC (CONGESTIVE) HEART FAILUR 08/13/2018 EATON DO, SARABJIT Ot I97.13 0 POSTPROCEDURAL HEART FAILURE FOLLOWING C 08/13/2018 EATON DO, SARABJIT Ot J18.1 LOBAR PNEUMONIA, UNSPECIFIED ORGANISM 08/13/2018 ANGELITO DO SARABJIT Ot J43.9 EMPHYSEMA, UNSPECIFIED 08/13/2018 ANGELITO DO SARABJIT Ot Z87.89 1 PERSONAL HISTORY OF NICOTINE DEPENDENCE 08/13/2018 ANGELITO DO SARABJIT Ot Z95.1 PRESENCE OF AORTOCORONARY BYPASS GRAFT 08/15/2018 ANGELITO DO, SARABJIT Ot D64.9 ANEMIA, UNSPECIFIED 08/15/2018 ANGELITO DO SARABJIT Ot D72.82 3 LEUKEMOID REACTION 08/15/2018 ANGELITO DO, SARABJIT Ot E78.5 HYPERLIPIDEMIA, UNSPECIFIED 08/15/2018 EATON DO, SARABJIT Ot G89.18 OTHER ACUTE POSTPROCEDURAL PAIN 08/15/2018 ANGELITO DO SARABJIT Ot I10 ESSENTIAL (PRIMARY) HYPERTENSION 08/15/2018 ANGELITO DO SARABJIT Ot I21.9 ACUTE MYOCARDIAL INFARCTION, UNSPECIFIED 08/15/2018 EATON DO, SARABJIT Ot I25.10 ATHSCL HEART DISEASE OF [place] CORONARY 08/15/2018 EATON DO SARABJIT Ot I25.5 ISCHEMIC CARDIOMYOPATHY 08/15/2018 ANGELITO DO SARABJIT Ot I50.21 ACUTE SYSTOLIC (CONGESTIVE) HEART FAILUR 08/15/2018 EATON DO SARABJIT Ot I97.13 0 POSTPROCEDURAL HEART FAILURE FOLLOWING C 08/15/2018 EATON DO, SARABJIT Ot J18.1 LOBAR PNEUMONIA, UNSPECIFIED ORGANISM 08/15/2018 EATON DO, SARABJIT Ot J43.9 EMPHYSEMA, UNSPECIFIED 08/15/2018 EATON DO, SARABJIT Ot Z87.89 1 PERSONAL HISTORY OF NICOTINE DEPENDENCE 08/15/2018 EATON DO SARABJIT Ot Z95.1 PRESENCE OF AORTOCORONARY BYPASS GRAFT 08/16/2018 EATON DO, SARABJIT Ot D64.9 ANEMIA, UNSPECIFIED 08/16/2018 EATON DO, SARABJIT Ot D72.82 3 LEUKEMOID REACTION 08/16/2018 EATON DO, SARABJIT Ot E78.5 HYPERLIPIDEMIA, UNSPECIFIED 08/16/2018 EATON DO, SARABJIT Ot G89.18 OTHER ACUTE POSTPROCEDURAL PAIN 08/16/2018 EATON DO, SARABJIT Ot I10 ESSENTIAL (PRIMARY) HYPERTENSION 08/16/2018 EATON DO, SARABJIT Ot I21.9 ACUTE MYOCARDIAL INFARCTION, UNSPECIFIED 08/16/2018 EATON DO, SARABJIT Ot I25.10 ATHSCL HEART DISEASE OF [place] CORONARY 08/16/2018 EATON DO, SARABJIT Ot I25.5 ISCHEMIC CARDIOMYOPATHY 08/16/2018 ANGELITO DO SARABJIT Ot I50.21 ACUTE SYSTOLIC (CONGESTIVE) HEART FAILUR 08/16/2018 EATON DO, SARABJIT Ot I97.13 0 POSTPROCEDURAL HEART FAILURE FOLLOWING C 08/16/2018 EATON DO, SARABJIT Ot J18.1 LOBAR PNEUMONIA, UNSPECIFIED ORGANISM 08/16/2018 ANGELITO DO SARABJIT Ot J43.9 EMPHYSEMA, UNSPECIFIED 08/16/2018 EATON DO, SARABJIT Ot Z87.89 1 PERSONAL HISTORY OF NICOTINE DEPENDENCE 08/16/2018 ANGELITO DO SARABJIT Ot Z95.1 PRESENCE OF AORTOCORONARY BYPASS GRAFT 08/17/2018 EATON DO, SARABJIT Ot D64.9 ANEMIA, UNSPECIFIED 08/17/2018 EATON DO, SARABJIT Ot D72.82 3 LEUKEMOID REACTION 08/17/2018 EATON DO, SARABJIT Ot E78.5 HYPERLIPIDEMIA, UNSPECIFIED 08/17/2018 EATON DO, SARABJIT Ot G89.18 OTHER ACUTE POSTPROCEDURAL PAIN 08/17/2018 EATON DO, SARABJIT Ot I10 ESSENTIAL (PRIMARY) HYPERTENSION 08/17/2018 EATON DO, SARABJIT Ot I21.9 ACUTE MYOCARDIAL INFARCTION, UNSPECIFIED 08/17/2018 EATON DO, SARABJIT Ot I25.10 ATHSCL HEART DISEASE OF [place] CORONARY 08/17/2018 EATON DO, SARABJIT Ot I25.5 ISCHEMIC CARDIOMYOPATHY 08/17/2018 EATON DO, SARABJIT Ot I50.21 ACUTE SYSTOLIC (CONGESTIVE) HEART FAILUR 08/17/2018 EATON DO, SARABJIT Ot I97.13 0 POSTPROCEDURAL HEART FAILURE FOLLOWING C 08/17/2018 EATON DO, SARABJIT Ot J18.1 LOBAR PNEUMONIA, UNSPECIFIED ORGANISM 08/17/2018 EATON DO SARABJIT Ot J43.9 EMPHYSEMA, UNSPECIFIED 08/17/2018 EATON DO, SARABJIT Ot Z87.89 1 PERSONAL HISTORY OF NICOTINE DEPENDENCE 08/17/2018 EATON DO, SARABJIT Ot Z95.1 PRESENCE OF AORTOCORONARY BYPASS GRAFT 08/17/2018 ANGELITO DO SARABJIT Ot B37.1 PULMONARY CANDIDIASIS 08/17/2018 EATON DO SARABJIT Ot D64.9 ANEMIA, UNSPECIFIED 08/17/2018 EATON DO, SARABJIT Ot D72.82 3 LEUKEMOID REACTION 08/17/2018 EATON DO, SARABJIT Ot E78.5 HYPERLIPIDEMIA, UNSPECIFIED 08/17/2018 EATON DO, SARABJIT Ot E87.6 HYPOKALEMIA 08/17/2018 EATON DO, SARABJIT Ot E87.70 FLUID OVERLOAD, UNSPECIFIED 08/17/2018 ANGELITO DO, SARABJIT Ot F32.9 MAJOR DEPRESSIVE DISORDER, SINGLE EPISOD 08/17/2018 ANGELITO ABERNATHY, SARABJIT Ot G89.18 OTHER ACUTE POSTPROCEDURAL PAIN 08/17/2018 ANGELITO DO, SARABJIT Ot I10 ESSENTIAL (PRIMARY) HYPERTENSION 08/17/2018 ANGELITO DO SARABJIT Ot I11.0 HYPERTENSIVE HEART DISEASE WITH HEART FA 08/17/2018 EATON DO SARABJIT Ot I21.9 ACUTE MYOCARDIAL INFARCTION, UNSPECIFIED 08/17/2018 EATON DO, SARABJIT Ot I25.10 ATHSCL HEART DISEASE OF [place] CORONARY 08/17/2018 EATON DO SARABJIT Ot I25.5 ISCHEMIC CARDIOMYOPATHY 08/17/2018 EATON DO SARABJIT Ot I50.1 LEFT VENTRICULAR FAILURE, UNSPECIFIED 08/17/2018 EATON DO, SARABJIT Ot I50.21 ACUTE SYSTOLIC (CONGESTIVE) HEART FAILUR 08/17/2018 ANGELITO DO SARABJIT Ot I97.13 0 POSTPROCEDURAL HEART FAILURE FOLLOWING C 08/17/2018 ANGELITO ABERNATHY SARABJIT Ot J18.1 LOBAR PNEUMONIA, UNSPECIFIED ORGANISM 08/17/2018 SERA EATON DOI Ot J43.9 EMPHYSEMA, UNSPECIFIED 08/17/2018 ANGELITO ABERNATHY SARABJIT Ot J90 PLEURAL EFFUSION, NOT ELSEWHERE CLASSIFI 08/17/2018 ANGELITO ABERNATHY SARABJIT Ot K59.03 DRUG INDUCED CONSTIPATION 08/17/2018 EATONANCELMO ABERNATHY SARABJIT Ot R06.89 OTHER ABNORMALITIES OF BREATHING 08/17/2018 ANGELITO ABERNATHY SARABJIT Ot R09.02 HYPOXEMIA 08/17/2018 ANGELITO ABERNATHY SARABJIT Ot T40.2X 5A ADVERSE EFFECT OF OTHER OPIOIDS, INITIAL 08/17/2018 ANGELITO ABERNATHY SARABJIT Ot Z87.89 1 PERSONAL HISTORY OF NICOTINE DEPENDENCE 08/17/2018 ANGELITO ABERNATHY SARABJIT Ot Z91.19 PATIENT'S NONCOMPLIANCE W [facility] 08/17/2018 ANGELITO ABERNATHY SARABJIT Ot Z95.1 PRESENCE OF AORTOCORONARY BYPASS GRAFT 08/23/2018 PERLA GOLDEN APRN Ot F17.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, UNSPECIFIED, UNCOMP 08/23/2018 PERLA GOLDEN APRN Ot J18.9 PNEUMONIA, UNSPECIFIED ORGANISM 08/23/2018 PERLA GOLDEN APRN Ot J44.9 CHRONIC OBSTRUCTIVE PULMONARY DISEASE, U 08/23/2018 PERLA GOLDEN APRN Ot R06.00 DYSPNEA, UNSPECIFIED 08/23/2018 FRITZ BOUCHER DOA Sharmin Ot E78.00 PURE HYPERCHOLESTEROLEMIA, UNSPECIFIED 08/23/2018 FRITZ BOUCHER DOA Sharmin Ot E87.5 HYPERKALEMIA 08/23/2018 CITLALY ABERNATHY LATONIA K Ot I10 ESSENTIAL (PRIMARY) HYPERTENSION 08/23/2018 FRITZ BOUCHER DOA K Ot I25.10 ATHSCL HEART DISEASE OF [place] CORONARY 08/23/2018 LATONIA BOUCHER DO Ot I25.2 OLD MYOCARDIAL INFARCTION 08/23/2018 FRITZ BOUCHER DOA Sharmin Ot J44.9 CHRONIC OBSTRUCTIVE PULMONARY DISEASE, U 08/23/2018 FRITZ BOUCHER DOA Sharmin Ot L03.116 CELLULITIS OF LEFT LOWER LIMB 08/23/2018 LATONIA BOUCHER DO Ot M53.3 SACROCOCCYGEAL DISORDERS, NOT ELSEWHERE 08/23/2018 CITLALY LATONIA ABERNATHY Ot N28.9 DISORDER OF KIDNEY AND URETER, UNSPECIFI 08/23/2018 CITLALY LATONIA ABERNATHY Ot S32.10X A UNSP FRACTURE OF SACRUM, INIT ENCNTR FOR 08/23/2018 LATONIA BOUCHER DO Ot W17.89X A OTHER FALL FROM ONE LEVEL TO ANOTHER, IN 08/23/2018 CITLALY LATONIA BAERNATHY Ot Z79.02 INTERMEDIATE (CURRENT) USE OF ANTITHROMBOTI 08/23/2018 CITLALY LATONIA ABERNATHY Ot Z79.82 INTERMEDIATE (CURRENT) USE OF ASPIRIN 08/23/2018 CITLALY LATONIA ABERNATHY Ot Z87.01 PERSONAL HISTORY OF PNEUMONIA (RECURRENT 08/23/2018 LATONIA BOUCHER DO Ot Z87.891 PERSONAL HISTORY OF NICOTINE DEPENDENCE 08/23/2018 CITLALY LATONIA ABERNATHY Ot Z90.710 ACQUIRED ABSENCE OF BOTH CERVIX AND UTER 08/23/2018 LATONIA BOUCHER DO Ot Z95.1 PRESENCE OF AORTOCORONARY BYPASS GRAFT 08/23/2018 CITLALY LATONIA ABERNATHY Ot Z98.890 OTHER SPECIFIED POSTPROCEDURAL STATES 08/27/2018 LATONIA BOUCHER DO Ot E78.00 PURE HYPERCHOLESTEROLEMIA, UNSPECIFIED 08/27/2018 LATONIA BOUCHER DO Ot E87.5 HYPERKALEMIA 08/27/2018 CITLALY LATONIA ABERNATHY Ot I10 ESSENTIAL (PRIMARY) HYPERTENSION 08/27/2018 CITLALY LATONIA ABERNATHY Ot I25.10 ATHSCL HEART DISEASE OF [place] CORONARY 08/27/2018 LATONIA BOUCHER DO Ot I25.2 OLD MYOCARDIAL INFARCTION 08/27/2018 CITLALY LATONIA ABERNATHY Ot J44.9 CHRONIC OBSTRUCTIVE PULMONARY DISEASE, U 08/27/2018 LATONIA BOUCHER DO Ot L03.116 CELLULITIS OF LEFT LOWER LIMB 08/27/2018 LATONIA BOUCHER DO Ot M53.3 SACROCOCCYGEAL DISORDERS, NOT ELSEWHERE 08/27/2018 LATONIA BOUCHER DO Ot N28.9 DISORDER OF KIDNEY AND URETER, UNSPECIFI 08/27/2018 LATONIA BOUCHER DO Ot S32.10X A UNSP FRACTURE OF SACRUM, INIT ENCNTR FOR 08/27/2018 LATONIA BOUCHER DO Ot W17.89X A OTHER FALL FROM ONE LEVEL TO ANOTHER, IN 08/27/2018 LATONIA BOUCHER DO Ot Z79.02 BLANCHARD GRINDER OPERATOR (CURRENT) USE OF ANTITHROMBOTI 08/27/2018 FRITZ BOUCHER DOGopi Finney Ot Z79.82 INTERMEDIATE (CURRENT) USE OF ASPIRIN 08/27/2018 LATONIA BOUCHER DO Ot Z87.01 PERSONAL HISTORY OF PNEUMONIA (RECURRENT 08/27/2018 CITLALY ABERNATHYLATONIA Ot Z87.891 PERSONAL HISTORY OF NICOTINE DEPENDENCE 08/27/2018 LATONIA BOUCHER DO Ot Z90.710 ACQUIRED ABSENCE OF BOTH CERVIX AND UTER 08/27/2018 LATONIA BOUCHER DO Ot Z95.1 PRESENCE OF AORTOCORONARY BYPASS GRAFT 08/27/2018 LATONIA BOUCHER DO Ot Z98.890 OTHER SPECIFIED POSTPROCEDURAL STATES 09/06/2018 JASON ROLON APRN Ot J44 .9 CHRONIC OBSTRUCTIVE PULMONARY DISEASE, U 09/06/2018 JASON ROLON APRN Ot R06.02 SHORTNESS OF BREATH 09/06/2018 JASON ROLON APRN Ot R07 .9 CHEST PAIN, UNSPECIFIED 09/06/2018 JASON ROLON APRN Ot T81.31XA DISRUPTION OF EXTERNAL OPERATION (SURGIC 09/06/2018 JASON ROLON APRN Ot Z79.02 BLANCHARD GRINDER OPERATOR (CURRENT) USE OF ANTITHROMBOTI 09/06/2018 JASON ROLON APRN Ot Z79.82 INTERMEDIATE (CURRENT) USE OF ASPIRIN 09/06/2018 JASON ROLON APRN Ot Z87.01 PERSONAL HISTORY OF PNEUMONIA (RECURRENT 09/06/2018 JASON ROLON APRN Ot Z87.891 PERSONAL HISTORY OF NICOTINE DEPENDENCE 09/06/2018 JASON ROLON APRN Ot Z90.710 ACQUIRED ABSENCE OF BOTH CERVIX AND UTER 09/06/2018 JASON ROLON APRN Ot Z95 .1 PRESENCE OF AORTOCORONARY BYPASS GRAFT 09/06/2018 JASON ROLON APRN Ot Z98.890 OTHER SPECIFIED POSTPROCEDURAL STATES 09/07/2018 JASON ROLON APRN Ot D64 .9 ANEMIA, UNSPECIFIED 09/07/2018 JASON ROLON APRN Ot E78.00 PURE HYPERCHOLESTEROLEMIA, UNSPECIFIED 09/07/2018 JASON ROLON APRN Ot I10 ESSENTIAL (PRIMARY) HYPERTENSION 09/07/2018 JASON ROLON APRN Ot I25.10 ATHSCL HEART DISEASE OF [place] CORONARY 09/07/2018 JASON ROLON APRN Ot I25 .2 OLD MYOCARDIAL INFARCTION 09/07/2018 JASON ROLON APRN Ot J44 .9 CHRONIC OBSTRUCTIVE PULMONARY DISEASE, U 09/07/2018 JASON ROLON APRN Ot L08 .9 LOCAL INFECTION OF THE SKIN AND SUBCUTAN 09/07/2018 JASON ROLON APRN Ot T81.31XA DISRUPTION OF EXTERNAL OPERATION (SURGIC 09/07/2018 JASON ROLON APRN Ot Z79.02 INTERMEDIATE (CURRENT) USE OF ANTITHROMBOTI 09/07/2018 JASON ROLON APRN Ot Z79.82 INTERMEDIATE (CURRENT) USE OF ASPIRIN 09/07/2018 JASON ROLON APRN Ot Z87.01 PERSONAL HISTORY OF PNEUMONIA (RECURRENT 09/07/2018 JASON ROLON APRN Ot Z87.891 PERSONAL HISTORY OF NICOTINE DEPENDENCE 09/07/2018 JASON ROLON APRN Ot Z90.710 ACQUIRED ABSENCE OF BOTH CERVIX AND UTER 09/07/2018 JASON ROLON APRN Ot Z95 .1 PRESENCE OF AORTOCORONARY BYPASS GRAFT 09/10/2018 JASON ROLON APRN Ot J44 .9 CHRONIC OBSTRUCTIVE PULMONARY DISEASE, U 09/10/2018 JASON ROLON APRN Ot R06.02 SHORTNESS OF BREATH 09/10/2018 JASON ROLON APRN Ot R07 .9 CHEST PAIN, UNSPECIFIED 09/10/2018 JASON ROLON APRN Ot T81.31XA DISRUPTION OF EXTERNAL OPERATION (SURGIC 09/10/2018 JASON ROLON APRN Ot Z79.02 INTERMEDIATE (CURRENT) USE OF ANTITHROMBOTI 09/10/2018 JASON ROLON APRN Ot Z79.82 BLANCHARD GRINDER OPERATOR (CURRENT) USE OF ASPIRIN 09/10/2018 JASON ROLON APRN Ot Z87.01 PERSONAL HISTORY OF PNEUMONIA (RECURRENT 09/10/2018 JASON ROLON APRN Ot Z87.891 PERSONAL HISTORY OF NICOTINE DEPENDENCE 09/10/2018 JASON ROLON APRN Ot Z90.710 ACQUIRED ABSENCE OF BOTH CERVIX AND UTER 09/10/2018 JASON ROLON APRN Ot Z95 .1 PRESENCE OF AORTOCORONARY BYPASS GRAFT 09/10/2018 JASON ROLON APRN Ot Z98.890 OTHER SPECIFIED POSTPROCEDURAL STATES 09/10/2018 JASON ROLON APRN Ot D64 .9 ANEMIA, UNSPECIFIED 09/10/2018 JASON ROLON APRN Ot E78.00 PURE HYPERCHOLESTEROLEMIA, UNSPECIFIED 09/10/2018 JASON ROLON APRN Ot I10 ESSENTIAL (PRIMARY) HYPERTENSION 09/10/2018 JASON ROLON APRN Ot I25.10 ATHSCL HEART DISEASE OF [place] CORONARY 09/10/2018 JASON ROLON APRN Ot I25 .2 OLD MYOCARDIAL INFARCTION 09/10/2018 JASON ROLON APRN Ot J44 .9 CHRONIC OBSTRUCTIVE PULMONARY DISEASE, U 09/10/2018 JASON ROLON APRN Ot L08 .9 LOCAL INFECTION OF THE SKIN AND SUBCUTAN 09/10/2018 JASON ROLON APRN Ot T81.31XA DISRUPTION OF EXTERNAL OPERATION (SURGIC 09/10/2018 JASON ROLON APRN Ot Z79.02 BLANCHARD GRINDER OPERATOR (CURRENT) USE OF ANTITHROMBOTI 09/10/2018 JASON ROLON APRN Ot Z79.82 INTERMEDIATE (CURRENT) USE OF ASPIRIN 09/10/2018 JASON ROLON APRN Ot Z87.01 PERSONAL HISTORY OF PNEUMONIA (RECURRENT 09/10/2018 JASON ROLON APRN Ot Z87.891 PERSONAL HISTORY OF NICOTINE DEPENDENCE 09/10/2018 JSAON ROLON APRN Ot Z90.710 ACQUIRED ABSENCE OF BOTH CERVIX AND UTER 09/10/2018 JASON ROLON APRN Ot Z95 .1 PRESENCE OF AORTOCORONARY BYPASS GRAFT 09/15/2018 JASON ROLON APRN Ot D64 .9 ANEMIA, UNSPECIFIED 09/15/2018 JASON ROLON APRN Ot E78.00 PURE HYPERCHOLESTEROLEMIA, UNSPECIFIED 09/15/2018 JASON ROLON APRN Ot I10 ESSENTIAL (PRIMARY) HYPERTENSION 09/15/2018 JASON ROLON APRN Ot I25.10 ATHSCL HEART DISEASE OF [place] CORONARY 09/15/2018 JASON ROLON APRN Ot I25 .2 OLD MYOCARDIAL INFARCTION 09/15/2018 JASON ROLON APRN Ot J44 .9 CHRONIC OBSTRUCTIVE PULMONARY DISEASE, U 09/15/2018 JASON ROLON APRN Ot L08 .9 LOCAL INFECTION OF THE SKIN AND SUBCUTAN 09/15/2018 JASON ROLON APRN Ot T81.31XA DISRUPTION OF EXTERNAL OPERATION (SURGIC 09/15/2018 JASON ROLON APRN Ot Z79.02 INTERMEDIATE (CURRENT) USE OF ANTITHROMBOTI 09/15/2018 JASON ROLON APRN Ot Z79.82 BLANCHARD GRINDER OPERATOR (CURRENT) USE OF ASPIRIN 09/15/2018 JASON ROLON APRN Ot Z87.01 PERSONAL HISTORY OF PNEUMONIA (RECURRENT 09/15/2018 JASON ROLON APRN Ot Z87.891 PERSONAL HISTORY OF NICOTINE DEPENDENCE 09/15/2018 JASON ROLON APRN Ot Z90.710 ACQUIRED ABSENCE OF BOTH CERVIX AND UTER 09/15/2018 JASON ROLON APRN Ot Z95 .1 PRESENCE OF AORTOCORONARY BYPASS GRAFT 09/17/2018 LAUREN BAIRD STAKING TECHNICIAN Ot M48.06 SPINAL STENOSIS, LUMBAR REGION 09/17/2018 PERLA GOLDEN APRN Ot F17.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, UNSPECIFIED, UNCOMP 09/17/2018 PERLA GOLDEN APRN Ot J18.9 PNEUMONIA, UNSPECIFIED ORGANISM 09/17/2018 PERLA GOLDEN APRN Ot R06.00 DYSPNEA, UNSPECIFIED 09/17/2018 TIA ROLON APRN Ot Z12.31 ENCNTR SCREEN MAMMOGRAM FOR MALIGNANT NE 09/17/2018 MOHIT ESPINO MD, Ot F17.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 DEPENDENCE, CIGARETTES, W OTH D 09/17/2018 MOHIT ESPINO MD Ot 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 UL 09/17/2018 MOHIT ESPINO MD, Ot I70.242 ATHSCL [place] ARTERIES OF LEFT LEG W ULC 09/17/2018 MOHIT ESPINO MD, Ot J44 .9 CHRONIC OBSTRUCTIVE PULMONARY DISEASE, U 09/17/2018 MOHIT ESPINO MD, Ot L97.212 NON-PRESSURE CHRONIC ULCER OF RIGHT CALF 09/17/2018 MOHIT ESPINO MD, Ot L97.222 NON-PRESSURE CHRONIC ULCER OF LEFT CALF 09/17/2018 MOHIT ESPINO MD, Ot L97.223 NON-PRESSURE CHRONIC ULCER OF LEFT CALF 09/17/2018 MOHIT ESPINO MD, Ot T81.31XA DISRUPTION OF EXTERNAL OPERATION (SURGIC 09/17/2018 MOHIT ESPINO MD, Ot L97.223 NON-PRESSURE CHRONIC ULCER OF LEFT CALF 09/18/2018 MOHIT ESPINO MD, Ot I70.202 [facility] ATHSCL [place] ARTERIES OF [facility] 09/19/2018 LAUREN BAIRD STAKING TECHNICIAN Ot M48.06 SPINAL STENOSIS, LUMBAR REGION 09/19/2018 PERLA GOLDEN APRN Ot F17.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, UNSPECIFIED, UNCOMP 09/19/2018 PERLA GOLDEN APRN Ot J18.9 PNEUMONIA, UNSPECIFIED ORGANISM 09/19/2018 PERLA GOLDEN APRN Ot R06.00 DYSPNEA, UNSPECIFIED 09/19/2018 TIA ROLON APRN Ot Z12.31 ENCNTR SCREEN MAMMOGRAM FOR MALIGNANT NE 09/19/2018 MOHIT ESPINO MD, Ot I70.202 [facility] [place] [facility] 09/21/2018 MOHIT ESPINO MD, Ot F17.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 DEPENDENCE, CIGARETTES, W OTH D 09/21/2018 MOHIT ESPINO MD, Ot J44 .9 CHRONIC OBSTRUCTIVE PULMONARY DISEASE, U 09/21/2018 MOHIT ESPINO MD, Ot L97.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-PRESSURE CHRONIC ULCER OF RIGHT CALF 09/21/2018 MOHIT ESPINO MD, Ot L97.222 NON-PRESSURE CHRONIC ULCER OF LEFT CALF 09/21/2018 MOHIT ESPINO MD, Ot L97.223 NON-PRESSURE CHRONIC ULCER OF LEFT CALF 09/21/2018 MOHIT ESPINO MD, Ot T65.222S TOXIC EFFECT OF TOBACCO CIGARETTES, SELF 09/21/2018 MOHIT ESPINO MD, Ot T81.31XA DISRUPTION OF EXTERNAL OPERATION (SURGIC 09/23/2018 CITLALY DO LATONIA K Ot D64.9 ANEMIA, UNSPECIFIED 09/23/2018 CITLALY DO LATONIA K Ot E78.00 PURE HYPERCHOLESTEROLEMIA, UNSPECIFIED 09/23/2018 CITLALY DO LATONIA K Ot I10 ESSENTIAL (PRIMARY) HYPERTENSION 09/23/2018 CITLALY DO LATONIA K Ot I25.10 ATHSCL HEART DISEASE OF [place] CORONARY 09/23/2018 CITLALY ABERNATHY LATONIA K Ot I25.2 OLD MYOCARDIAL INFARCTION 09/23/2018 CITLALY ABERNATHY LATONIA Sharmin Ot J44.1 CHRONIC OBSTRUCTIVE PULMONARY DISEASE W 09/23/2018 CITLALY ABERNATHY LATONIA Finney Ot R07.9 CHEST PAIN, UNSPECIFIED 09/23/2018 CITLALY ABERNATHY LATONIA Finney Ot Z79.02 BLANCHARD GRINDER OPERATOR (CURRENT) USE OF ANTITHROMBOTI 09/23/2018 CITLALY ABERNATHY LATONIA Sharmin Ot Z79.82 INTERMEDIATE (CURRENT) USE OF ASPIRIN 09/23/2018 CITLALY ABERNATHY LATONIA Sharmin Ot Z87.01 PERSONAL HISTORY OF PNEUMONIA (RECURRENT 09/23/2018 CITLALY ABERNATHY LATONIA Sharmin Ot Z87.891 PERSONAL HISTORY OF NICOTINE DEPENDENCE 09/23/2018 CITLALY ABERNATHY LATONIA Sharmin Ot Z90.710 ACQUIRED ABSENCE OF BOTH CERVIX AND UTER 09/23/2018 CITLALY ABERNATHY LATONIA Sharmin Ot Z91.14 PATIENT'S OTHER NONCOMPLIANCE WITH MEDIC 09/23/2018 CITLALY ABERNATHY LATONIA Finney Ot Z95.1 PRESENCE OF AORTOCORONARY BYPASS GRAFT 09/23/2018 CITLALY ABERNATHY LATONIA Finney Ot Z98.890 OTHER SPECIFIED POSTPROCEDURAL STATES 09/23/2018 LAUREN BAIRD [facility] Ot M48.06 SPINAL STENOSIS, LUMBAR REGION 09/23/2018 PERLA GOLDEN APRN Ot F17.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, UNSPECIFIED, UNCOMP 09/23/2018 PERLA GOLDEN APRN Ot J18.9 PNEUMONIA, UNSPECIFIED ORGANISM 09/23/2018 PERLA GOLDEN APRN Ot R06.00 DYSPNEA, UNSPECIFIED 09/23/2018 TIA ROLON APRN Ot Z12.31 ENCNTR SCREEN MAMMOGRAM FOR MALIGNANT NE 09/23/2018 MOHIT ESPINO MD Ot I70.202 UNSP ATHSCL [place] [facility] 09/23/2018 MOHIT ESPINO MD Ot F17.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 DEPENDENCE, CIGARETTES, W OTH D 09/23/2018 MOHIT ESPINO MD, Ot J44 .9 CHRONIC OBSTRUCTIVE PULMONARY DISEASE, U 09/23/2018 MOHIT ESPINO MD Ot L97.212 NON-PRESSURE CHRONIC ULCER OF RIGHT CALF 09/23/2018 MOHIT ESPINO MD Ot L97.222 NON-PRESSURE CHRONIC ULCER OF LEFT CALF 09/23/2018 MOHIT ESPINO MD, Ot L97.223 NON-PRESSURE CHRONIC ULCER OF LEFT CALF 09/23/2018 MOHIT ESPINO MD, Ot T65.222S TOXIC EFFECT OF TOBACCO CIGARETTES, SELF 09/23/2018 MOHIT ESPINO MD, Ot T81.31XA DISRUPTION OF EXTERNAL OPERATION (SURGIC 09/25/2018 CITLALY LATONIA K Ot D64.9 ANEMIA, UNSPECIFIED 09/25/2018 CITLALY DO LATONIA K Ot E78.00 PURE HYPERCHOLESTEROLEMIA, UNSPECIFIED 09/25/2018 CITLALY DO LATONIA K Ot I10 ESSENTIAL (PRIMARY) HYPERTENSION 09/25/2018 CITLALY DO LATONIA K Ot I25.10 ATHSCL HEART DISEASE OF [place] CORONARY 09/25/2018 CITLALY DOFRITZA K Ot I25.2 OLD MYOCARDIAL INFARCTION 09/25/2018 CITLALY FRITZ ABERNATHYA K Ot J44.1 CHRONIC OBSTRUCTIVE PULMONARY DISEASE W 09/25/2018 CITLALY DO LATONIA K Ot R07.9 CHEST PAIN, UNSPECIFIED 09/25/2018 CITLALY DO LATONIA K Ot Z79.02 INTERMEDIATE (CURRENT) USE OF ANTITHROMBOTI 09/25/2018 CITLALY DOFRITZA K Ot Z79.82 INTERMEDIATE (CURRENT) USE OF ASPIRIN 09/25/2018 CITLALY DO LATONIA K Ot Z87.01 PERSONAL HISTORY OF PNEUMONIA (RECURRENT 09/25/2018 CITLALY DO LATONIA K Ot Z87.891 PERSONAL HISTORY OF NICOTINE DEPENDENCE 09/25/2018 CITLALY DO LATONIA K Ot Z90.710 ACQUIRED ABSENCE OF BOTH CERVIX AND UTER 09/25/2018 CITLALY DO LATONIA K Ot Z91.14 PATIENT'S OTHER NONCOMPLIANCE WITH MEDIC 09/25/2018 CITLALY FRITZ ABERNATHYA K Ot Z95.1 PRESENCE OF AORTOCORONARY BYPASS GRAFT 09/25/2018 CITLALY DO LATONIA K Ot Z98.890 OTHER SPECIFIED POSTPROCEDURAL STATES 09/27/2018 MOHIT ESPINO MD, Ot F17.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 DEPENDENCE, CIGARETTES, W OTH D 09/27/2018 MOHIT ESPINO MD, Ot J44 .9 CHRONIC OBSTRUCTIVE PULMONARY DISEASE, U 09/27/2018 MOHIT ESPINO MD, Ot L97.212 NON-PRESSURE CHRONIC ULCER OF RIGHT CALF 09/27/2018 MOHIT ESPINO MD, Ot L97.222 NON-PRESSURE CHRONIC ULCER OF LEFT CALF 09/27/2018 MOHIT ESPINO MD, Ot T65.222S TOXIC EFFECT OF TOBACCO CIGARETTES, SELF 09/27/2018 MOHIT ESPINO MD, Ot T81.31XA DISRUPTION OF EXTERNAL OPERATION (SURGIC 09/27/2018 MOHIT ESPINO MD, Ot L97.223 NON-PRESSURE CHRONIC ULCER OF LEFT CALF 10/02/2018 MOHIT ESPINO MD, Ot L97.223 NON-PRESSURE CHRONIC ULCER OF LEFT CALF 10/04/2018 CITLALY FRITZ ABERNATHYA K Ot D64.9 ANEMIA, UNSPECIFIED 10/04/2018 CITLALY DO LATONIA Sharmin Ot E78.00 PURE HYPERCHOLESTEROLEMIA, UNSPECIFIED 10/04/2018 CITLALY DO LATONIA K Ot I10 ESSENTIAL (PRIMARY) HYPERTENSION 10/04/2018 CITLALY DO LATONIA K Ot I25.10 ATHSCL HEART DISEASE OF [place] CORONARY 10/04/2018 FRITZ BOUCHER DOA Sharmin Ot I25.2 OLD MYOCARDIAL INFARCTION 10/04/2018 FRITZ BOUCHER DOA Sharmin Ot J44.1 CHRONIC OBSTRUCTIVE PULMONARY DISEASE W 10/04/2018 LATONIA BOUCHER DO Ot R07.9 CHEST PAIN, UNSPECIFIED 10/04/2018 CITLALY DO LATONIA K Ot Z79.02 BLANCHARD GRINDER OPERATOR (CURRENT) USE OF ANTITHROMBOTI 10/04/2018 FRITZ BOUCHER DOA K Ot Z79.82 INTERMEDIATE (CURRENT) USE OF ASPIRIN 10/04/2018 CITLALY ABERNATHY LATONIA K Ot Z87.01 PERSONAL HISTORY OF PNEUMONIA (RECURRENT 10/04/2018 CITLALY ABERNATHY LATONIA K Ot Z87.891 PERSONAL HISTORY OF NICOTINE DEPENDENCE 10/04/2018 LATONIA BOUCHER DO Ot Z90.710 ACQUIRED ABSENCE OF BOTH CERVIX AND UTER 10/04/2018 CITLALY DO LATONIA K Ot Z91.14 PATIENT'S OTHER NONCOMPLIANCE WITH MEDIC 10/04/2018 FRITZ BOUCHER DOA Sharmin Ot Z95.1 PRESENCE OF AORTOCORONARY BYPASS GRAFT 10/04/2018 LATONIA BOUCHER DO Ot Z98.890 OTHER SPECIFIED POSTPROCEDURAL STATES 10/05/2018 MOHIT ESPINO MD, Ot F17.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 DEPENDENCE, CIGARETTES, W OTH D 10/05/2018 MOHIT ESPINO MD, Ot 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 UL 10/05/2018 MOHIT ESPINO MD, Ot I70.242 ATHSCL [place] ARTERIES OF LEFT LEG W ULC 10/05/2018 MOHIT ESPINO MD, Ot J44 .9 CHRONIC OBSTRUCTIVE PULMONARY DISEASE, U 10/05/2018 MOHIT ESPINO MD, Ot L97.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 2 CERVICALGIA 10/09/2018 ANASTASIA TEJEDA MD, Ot J18. 9 PNEUMONIA, UNSPECIFIED ORGANISM 10/09/2018 TIA ROLON APRN Ot M47.812 SPONDYLOSIS W/O MYELOPATHY OR RADICULOPA 10/09/2018 PERLA GOLDEN APRN Ot F17.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, UNSPECIFIED, UNCOMP 10/09/2018 PERLA GOLDEN APRN Ot J18.9 PNEUMONIA, UNSPECIFIED ORGANISM 10/09/2018 PERLA GOLDEN APRN, Ot J44.9 CHRONIC OBSTRUCTIVE PULMONARY DISEASE, U 10/09/2018 PERLA GOLDEN APRN Ot R06.00 DYSPNEA, UNSPECIFIED 10/09/2018 ALEE BRIGHT DO Ot M75.111 INCOMPLETE ROTATR-CUFF TEAR/RUPTR OF R S 10/09/2018 ALEE BRIGHT DO, Ot M75.51 BURSITIS OF RIGHT SHOULDER 10/09/2018 MOHIT ESPINO MD, Ot F17.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 DEPENDENCE, CIGARETTES, W OTH D 10/09/2018 MOHIT ESPINO MD, Ot 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 UL 10/09/2018 MOHIT ESPINO MD, Ot I70.242 ATHSCL [place] ARTERIES OF LEFT LEG W [facility] 10/09/2018 MOHIT ESPINO MD, Ot J44 .9 CHRONIC OBSTRUCTIVE PULMONARY DISEASE, U 10/09/2018 MOHIT ESPINO MD Ot L97.212 NON-PRESSURE CHRONIC ULCER OF RIGHT CALF 10/09/2018 MOHIT ESPINO MD, Ot L97.222 NON-PRESSURE CHRONIC ULCER OF LEFT CALF 10/09/2018 MOHIT ESPINO MD Ot L97.223 NON-PRESSURE CHRONIC ULCER OF LEFT CALF 10/09/2018 MOHIT ESPINO MD Ot T81.31XA DISRUPTION OF EXTERNAL OPERATION (SURGIC 10/09/2018 MOHIT ESPINO MD, Ot L97.223 NON-PRESSURE CHRONIC ULCER OF LEFT CALF 10/10/2018 MOHIT ESPINO MD, Ot L97.223 NON-PRESSURE CHRONIC ULCER OF LEFT CALF 10/11/2018 MOHIT ESPINO MD, Ot F17.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 DEPENDENCE, CIGARETTES, W OTH D 10/11/2018 MOHIT ESPINO MD, Ot J44 .9 CHRONIC OBSTRUCTIVE PULMONARY DISEASE, U 10/11/2018 MOHIT ESPINO MD, Ot L97.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 10/11/2018 MOHIT ESPINO MD, Ot L97.212 NON-PRESSURE CHRONIC ULCER OF RIGHT CALF 10/11/2018 MOHIT ESPINO MD, Ot L97.222 NON-PRESSURE CHRONIC ULCER OF LEFT CALF 10/11/2018 MOHIT ESPINO MD, Ot T65.222S TOXIC EFFECT OF TOBACCO CIGARETTES, SELF 10/11/2018 MOHIT ESPINO MD, Ot T81.31XA DISRUPTION OF EXTERNAL OPERATION (SURGIC 10/12/2018 MOHIT ESPINO MD, Ot F17.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 DEPENDENCE, CIGARETTES, W OTH D 10/12/2018 MOHIT ESPINO MD, Ot J44 .9 CHRONIC OBSTRUCTIVE PULMONARY DISEASE, U 10/12/2018 MOHIT ESPINO MD, Ot L97.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 10/12/2018 MOHIT ESPINO MD Ot L97.212 NON-PRESSURE CHRONIC ULCER OF RIGHT CALF 10/12/2018 MOHIT ESPINO MD, Ot L97.222 NON-PRESSURE CHRONIC ULCER OF LEFT CALF 10/12/2018 MOHIT ESPINO MD Ot T65.222S TOXIC EFFECT OF TOBACCO CIGARETTES, SELF 10/12/2018 MOHIT ESPINO MD Ot T81.31XA DISRUPTION OF EXTERNAL OPERATION (SURGIC 10/15/2018 MOHIT ESPINO MD, Ot F17.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 2 CERVICALGIA 10/16/2018 ANASTASIA TEJEDA MD, Ot J18. 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 DEPENDENCE, CIGARETTES, W OTH D 10/16/2018 MOHIT ESPINO MD, Ot 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 UL 10/16/2018 MOHIT ESPINO MD, Ot I70.242 ATHSCL [place] ARTERIES OF LEFT LEG W ULC 10/16/2018 MOHIT ESPINO MD, Ot J44 .9 CHRONIC OBSTRUCTIVE PULMONARY DISEASE, U 10/16/2018 MOHIT ESPINO MD, Ot L97.212 NON-PRESSURE CHRONIC ULCER OF RIGHT CALF 10/16/2018 MOHIT ESPINO MD, Ot L97.222 NON-PRESSURE CHRONIC ULCER OF LEFT CALF 10/16/2018 MOHIT ESPINO MD, Ot L97.223 NON-PRESSURE CHRONIC ULCER OF LEFT CALF 10/16/2018 MOHIT ESPINO MD, Ot T81.31XA DISRUPTION OF EXTERNAL OPERATION (SURGIC 10/16/2018 MOHIT ESPINO MD, Ot L97.223 NON-PRESSURE CHRONIC ULCER OF LEFT CALF 10/16/2018 MOHIT ESPINO MD, Ot F17.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 DEPENDENCE, CIGARETTES, W OTH D 10/16/2018 MOHIT ESPINO MD, Ot J44 .9 CHRONIC OBSTRUCTIVE PULMONARY DISEASE, U 10/16/2018 MOHIT ESPINO MD, Ot L97.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 10/16/2018 MOHIT ESPINO MD, Ot L97.212 NON-PRESSURE CHRONIC ULCER OF RIGHT CALF 10/16/2018 MOHIT ESPINO MD, Ot L97.222 NON-PRESSURE CHRONIC ULCER OF LEFT CALF 10/16/2018 MOHIT ESPINO MD, Ot T65.222S TOXIC EFFECT OF TOBACCO CIGARETTES, SELF 10/16/2018 MOHIT ESPINO MD, Ot T81.31XA DISRUPTION OF EXTERNAL OPERATION (SURGIC 10/17/2018 NINA JERONIMO MD, Ot A41 .9 SEPSIS, UNSPECIFIED ORGANISM 10/17/2018 NINA JERONIMO MD, Ot E87 .1 HYPO-OSMOLALITY AND HYPONATREMIA 10/17/2018 NINA JERONIMO MD, Ot E87 .2 ACIDOSIS 10/17/2018 NINA JERONIMO MD, Ot F05 DELIRIUM DUE TO KNOWN PHYSIOLOGICAL COND 10/17/2018 NINA JERONIMO MD, Ot F41 .9 ANXIETY DISORDER, UNSPECIFIED 10/17/2018 NINA JERONIMO MD, Ot G25.81 RESTLESS LEGS SYNDROME 10/17/2018 NINA JERONIMO MD, Ot G89.29 OTHER CHRONIC PAIN 10/17/2018 NINA JERONIMO MD, Ot I11 .0 HYPERTENSIVE HEART DISEASE WITH HEART FA 10/17/2018 NINA JERONIMO MD, Ot I25.10 ATHSCL HEART DISEASE OF [place] CORONARY 10/17/2018 NINA JERONIMO MD, Ot I25 .2 OLD MYOCARDIAL INFARCTION 10/17/2018 NINA JERONIMO MD, Ot I49 .3 VENTRICULAR PREMATURE DEPOLARIZATION 10/17/2018 NINA JERONIMO MD, Ot I50 .9 HEART FAILURE, UNSPECIFIED 10/17/2018 NINA JERONIMO MD, Ot J18 .1 LOBAR PNEUMONIA, UNSPECIFIED ORGANISM 10/17/2018 NINA JERONIMO MD, Ot J44 .0 CHRONIC OBSTRUCTIVE PULMON DISEASE W ACU 10/17/2018 NINA JERONIMO MD Ot L40.50 ARTHROPATHIC PSORIASIS, UNSPECIFIED 10/17/2018 NINA JERONIMO MD Ot M19.91 PRIMARY OSTEOARTHRITIS, UNSPECIFIED SITE 10/17/2018 NINA JERONIMO MD, Ot M54 .9 DORSALGIA, UNSPECIFIED 10/17/2018 NINA JERONIMO MD Ot R00 .0 TACHYCARDIA, UNSPECIFIED 10/17/2018 NINA JERONIMO MD, Ot R41 .0 DISORIENTATION, UNSPECIFIED 10/17/2018 NINA JERONIMO MD, Ot T40.4X5A ADVERSE EFFECT OF OTHER SYNTHETIC NARCOT 10/17/2018 NINA JERONIMO MD, Ot T42.4X5A ADVERSE EFFECT OF [place], INITI 10/17/2018 NINA JERONIMO MD Ot T81.89XA OTH COMPLICATIONS OF PROCEDURES, NEC, IN 10/17/2018 NINA JERONIMO MD Ot Z87.891 PERSONAL HISTORY OF NICOTINE DEPENDENCE 10/17/2018 NINA JERONIMO MD Ot Z95 .1 PRESENCE OF AORTOCORONARY BYPASS GRAFT 10/17/2018 NINA JERONIMO MD Ot A41 .9 SEPSIS, UNSPECIFIED ORGANISM 10/17/2018 NINA JERONIMO MD Ot E87 .1 HYPO-OSMOLALITY AND HYPONATREMIA 10/17/2018 NINA JERONIMO MD Ot E87 .2 ACIDOSIS 10/17/2018 NINA JERONIMO MD Ot F05 DELIRIUM DUE TO KNOWN PHYSIOLOGICAL COND 10/17/2018 NINA JERONIMO MD Ot F41 .9 ANXIETY DISORDER, UNSPECIFIED 10/17/2018 NINA JERONIMO MD Ot G25.81 RESTLESS LEGS SYNDROME 10/17/2018 NINA JERONIMO MD Ot G89.29 OTHER CHRONIC PAIN 10/17/2018 NINA JERONIMO MD Ot I11 .0 HYPERTENSIVE HEART DISEASE WITH HEART FA 10/17/2018 NINA JERONIMO MD, Ot I25.10 ATHSCL HEART DISEASE OF [place] CORONARY 10/17/2018 NINA JERONIMO MD, Ot I25 .2 OLD MYOCARDIAL INFARCTION 10/17/2018 NINA JERONIMO MD, Ot I49 .3 VENTRICULAR PREMATURE DEPOLARIZATION 10/17/2018 NINA JERONIMO MD, Ot I50 .9 HEART FAILURE, UNSPECIFIED 10/17/2018 NINA JERONIMO MD, Ot J18 .1 LOBAR PNEUMONIA, UNSPECIFIED ORGANISM 10/17/2018 NINA JERONIMO MD, Ot J44 .0 CHRONIC OBSTRUCTIVE PULMON DISEASE W ACU 10/17/2018 NINA JERONIMO MD, Ot L40.50 ARTHROPATHIC PSORIASIS, UNSPECIFIED 10/17/2018 NINA JERONIMO MD, Ot M19.91 PRIMARY OSTEOARTHRITIS, UNSPECIFIED SITE 10/17/2018 NINA JERONIMO MD, Ot M54 .9 DORSALGIA, UNSPECIFIED 10/17/2018 NINA JERONIMO MD, Ot R00 .0 TACHYCARDIA, UNSPECIFIED 10/17/2018 NINA JERONIMO MD, Ot R41 .0 DISORIENTATION, UNSPECIFIED 10/17/2018 NINA JERONIMO MD, Ot T40.4X5A ADVERSE EFFECT OF OTHER SYNTHETIC NARCOT 10/17/2018 NINA JERONIMO MD, Ot T42.4X5A ADVERSE EFFECT OF [place], INITI 10/17/2018 NINA JERONIMO MD, Ot T81.89XA OTH COMPLICATIONS OF PROCEDURES, NEC, IN 10/17/2018 NINA JERONIMO MD, Ot Z87.891 PERSONAL HISTORY OF NICOTINE DEPENDENCE 10/17/2018 NINA JERONIMO MD, Ot Z95 .1 PRESENCE OF AORTOCORONARY BYPASS GRAFT 10/17/2018 NINA JERONIMO MD Ot A41 .9 SEPSIS, UNSPECIFIED ORGANISM 10/17/2018 NINA JERONIMO MD, Ot E87 .1 HYPO-OSMOLALITY AND HYPONATREMIA 10/17/2018 NINA JERONIMO MD, Ot E87 .2 ACIDOSIS 10/17/2018 NINA JERONIMO MD, Ot F05 DELIRIUM DUE TO KNOWN PHYSIOLOGICAL COND 10/17/2018 NINA JERONIMO MD, Ot F41 .9 ANXIETY DISORDER, UNSPECIFIED 10/17/2018 NINA JERONIMO MD, Ot G25.81 RESTLESS LEGS SYNDROME 10/17/2018 NINA JEROINMO MD, Ot G89.29 OTHER CHRONIC PAIN 10/17/2018 NINA JERONIMO MD, Ot I11 .0 HYPERTENSIVE HEART DISEASE WITH HEART FA 10/17/2018 NINA JERONIMO MD, Ot I25.10 ATHSCL HEART DISEASE OF [place] CORONARY 10/17/2018 NINA JERONIMO MD, Ot I25 .2 OLD MYOCARDIAL INFARCTION 10/17/2018 NINA JERONIMO MD, Ot I49 .3 VENTRICULAR PREMATURE DEPOLARIZATION 10/17/2018 NINA JERONIMO MD, Ot I50 .9 HEART FAILURE, UNSPECIFIED 10/17/2018 NINA JERONIMO MD, Ot J18 .1 LOBAR PNEUMONIA, UNSPECIFIED ORGANISM 10/17/2018 NINA JERONIMO MD, Ot J44 .0 CHRONIC OBSTRUCTIVE PULMON DISEASE W ACU 10/17/2018 NINA JERONIMO MD, Ot L40.50 ARTHROPATHIC PSORIASIS, UNSPECIFIED 10/17/2018 NINA JERONIMO MD, Ot M19.91 PRIMARY OSTEOARTHRITIS, UNSPECIFIED SITE 10/17/2018 NINA JERONIMO MD, Ot M54 .9 DORSALGIA, UNSPECIFIED 10/17/2018 NINA JERONIMO MD Ot R00 .0 TACHYCARDIA, UNSPECIFIED 10/17/2018 NINA JERONIMO MD, Ot R41 .0 DISORIENTATION, UNSPECIFIED 10/17/2018 NINA JERONIMO MD, Ot T40.4X5A ADVERSE EFFECT OF OTHER SYNTHETIC NARCOT 10/17/2018 NINA JERONIMO MD, Ot T42.4X5A ADVERSE EFFECT OF [place], INITI 10/17/2018 NINA JERONIMO MD, Ot T81.89XA OTH COMPLICATIONS OF PROCEDURES, NEC, IN 10/17/2018 NINA EJRONIMO MD, Ot Z87.891 PERSONAL HISTORY OF NICOTINE DEPENDENCE 10/17/2018 NINA JERONIMO MD, Ot Z95 .1 PRESENCE OF AORTOCORONARY BYPASS GRAFT 10/17/2018 NINA JERONIMO MD, Ot A41 .9 SEPSIS, UNSPECIFIED ORGANISM 10/17/2018 NINA JERONIMO MD Ot E87 .1 HYPO-OSMOLALITY AND HYPONATREMIA 10/17/2018 NINA JERONIMO MD Ot E87 .2 ACIDOSIS 10/17/2018 NINA JERONIMO MD, Ot F05 DELIRIUM DUE TO KNOWN PHYSIOLOGICAL COND 10/17/2018 NINA JERONIMO MD, Ot F41 .9 ANXIETY DISORDER, UNSPECIFIED 10/17/2018 NINA JERONIMO MD, Ot G25.81 RESTLESS LEGS SYNDROME 10/17/2018 NINA JERONIMO MD, Ot G89.29 OTHER CHRONIC PAIN 10/17/2018 NINA JERONIMO MD, Ot I11 .0 HYPERTENSIVE HEART DISEASE WITH HEART FA 10/17/2018 NINA JERONIMO MD, Ot I25.10 ATHSCL HEART DISEASE OF [place] CORONARY 10/17/2018 NINA JERONIMO MD, Ot I25 .2 OLD MYOCARDIAL INFARCTION 10/17/2018 NINA JERONIMO MD, Ot I49 .3 VENTRICULAR PREMATURE DEPOLARIZATION 10/17/2018 NINA JERONIMO MD, Ot I50 .9 HEART FAILURE, UNSPECIFIED 10/17/2018 NINA JERONIMO MD, Ot J18 .1 LOBAR PNEUMONIA, UNSPECIFIED ORGANISM 10/17/2018 NINA JERONIMO MD, Ot J44 .0 CHRONIC OBSTRUCTIVE PULMON DISEASE W ACU 10/17/2018 NINA JERONIMO MD, Ot L40.50 ARTHROPATHIC PSORIASIS, UNSPECIFIED 10/17/2018 NINA JERONIMO MD, Ot M19.91 PRIMARY OSTEOARTHRITIS, UNSPECIFIED SITE 10/17/2018 NINA JERONIMO MD, Ot M54 .9 DORSALGIA, UNSPECIFIED 10/17/2018 NINA JERONIMO MD, Ot R00 .0 TACHYCARDIA, UNSPECIFIED 10/17/2018 NINA JERONIMO MD, Ot R41 .0 DISORIENTATION, UNSPECIFIED 10/17/2018 NINA JERONIMO MD, Ot T40.4X5A ADVERSE EFFECT OF OTHER SYNTHETIC NARCOT 10/17/2018 NINA JERONIMO MD, Ot T42.4X5A ADVERSE EFFECT OF [place], INITI 10/17/2018 NINA JERONIMO MD, Ot T81.89XA OTH COMPLICATIONS OF PROCEDURES, NEC, IN 10/17/2018 NINA JERONIMO MD, Ot Z87.891 PERSONAL HISTORY OF NICOTINE DEPENDENCE 10/17/2018 NINA JERONIMO MD, Ot Z95 .1 PRESENCE OF AORTOCORONARY BYPASS GRAFT 10/18/2018 NINA JERONIMO MD Ot A41 .9 SEPSIS, UNSPECIFIED ORGANISM 10/18/2018 NINA JERONIMO MD Ot E87 .1 HYPO-OSMOLALITY AND HYPONATREMIA 10/18/2018 NINA JERONIMO MD Ot E87 .2 ACIDOSIS 10/18/2018 NINA JERONIMO MD Ot F05 DELIRIUM DUE TO KNOWN PHYSIOLOGICAL COND 10/18/2018 NINA JERONIMO MD Ot F41 .9 ANXIETY DISORDER, UNSPECIFIED 10/18/2018 NINA JERONIMO MD, Ot G25.81 RESTLESS LEGS SYNDROME 10/18/2018 NINA JERONIMO MD Ot G89.29 OTHER CHRONIC PAIN 10/18/2018 NINA JERONIMO MD Ot I11 .0 HYPERTENSIVE HEART DISEASE WITH HEART FA 10/18/2018 NINA JERONIMO MD, Ot I25.10 ATHSCL HEART DISEASE OF [place] CORONARY 10/18/2018 NINA JERONIMO MD, Ot I25 .2 OLD MYOCARDIAL INFARCTION 10/18/2018 NINA JERONIMO MD Ot I49 .3 VENTRICULAR PREMATURE DEPOLARIZATION 10/18/2018 NINA JERONIMO MD, Ot I50 .9 HEART FAILURE, UNSPECIFIED 10/18/2018 NINA JERONIMO MD, Ot J18 .1 LOBAR PNEUMONIA, UNSPECIFIED ORGANISM 10/18/2018 NINA JERONIMO MD, Ot J44 .0 CHRONIC OBSTRUCTIVE PULMON DISEASE W ACU 10/18/2018 NINA JERONIMO MD Ot L40.50 ARTHROPATHIC PSORIASIS, UNSPECIFIED 10/18/2018 NINA JERONIMO MD Ot M19.91 PRIMARY OSTEOARTHRITIS, UNSPECIFIED SITE 10/18/2018 NINA JERONIMO MD, Ot M54 .9 DORSALGIA, UNSPECIFIED 10/18/2018 NINA JERONIMO MD Ot R00 .0 TACHYCARDIA, UNSPECIFIED 10/18/2018 NINA JERONIMO MD, Ot R41 .0 DISORIENTATION, UNSPECIFIED 10/18/2018 NINA JERONIMO MD Ot T40.4X5A ADVERSE EFFECT OF OTHER SYNTHETIC NARCOT 10/18/2018 NINA JERONIMO MD, Ot T42.4X5A ADVERSE EFFECT OF [place], INITI 10/18/2018 NINA JERONIMO MD Ot T81.89XA OTH COMPLICATIONS OF PROCEDURES, NEC, IN 10/18/2018 NINA JERONIMO MD, Ot Z87.891 PERSONAL HISTORY OF NICOTINE DEPENDENCE 10/18/2018 NINA JERONIMO MD, Ot Z95 .1 PRESENCE OF AORTOCORONARY BYPASS GRAFT 10/18/2018 NINA JERONIMO MD, Ot A41 .9 SEPSIS, UNSPECIFIED ORGANISM 10/18/2018 NINA JERONIMO MD, Ot B37 .0 CANDIDAL STOMATITIS 10/18/2018 NINA JERONIMO MD, Ot E87 .1 HYPO-OSMOLALITY AND HYPONATREMIA 10/18/2018 NINA JERONIMO MD, Ot E87 .2 ACIDOSIS 10/18/2018 NINA JERONIMO MD, Ot F05 DELIRIUM DUE TO KNOWN PHYSIOLOGICAL COND 10/18/2018 NINA JERONIMO MD, Ot F32 .9 MAJOR DEPRESSIVE DISORDER, SINGLE EPISOD 10/18/2018 NINA JERONIMO MD, Ot F41 .9 ANXIETY DISORDER, UNSPECIFIED 10/18/2018 NINA JERONIMO MD, Ot G25.81 RESTLESS LEGS SYNDROME 10/18/2018 NINA JERONIMO MD, Ot G89.29 OTHER CHRONIC PAIN 10/18/2018 NINA JERONIMO MD, Ot G93.41 METABOLIC ENCEPHALOPATHY 10/18/2018 NINA JERONIMO MD, Ot I11 .0 HYPERTENSIVE HEART DISEASE WITH HEART FA 10/18/2018 NINA JERONIMO MD, Ot I25.10 ATHSCL HEART DISEASE OF [place] CORONARY 10/18/2018 NINA JERONIMO MD, Ot I25 .2 OLD MYOCARDIAL INFARCTION 10/18/2018 NINA JERONIMO MD Ot I49 .3 VENTRICULAR PREMATURE DEPOLARIZATION 10/18/2018 NINA JERONIMO MD, Ot I50 .9 HEART FAILURE, UNSPECIFIED 10/18/2018 NINA JERONIMO MD, Ot J18 .1 LOBAR PNEUMONIA, UNSPECIFIED ORGANISM 10/18/2018 NINA JERONIMO MD, Ot J44 .0 CHRONIC OBSTRUCTIVE PULMON DISEASE W ACU 10/18/2018 NINA JERONIMO MD, Ot J44 .1 CHRONIC OBSTRUCTIVE PULMONARY DISEASE W 10/18/2018 NINA JERONIMO MD, Ot J96.00 ACUTE RESPIRATORY FAILURE, UNSP W HYPOXI 10/18/2018 NINA JERONIMO MD Ot L40.50 ARTHROPATHIC PSORIASIS, UNSPECIFIED 10/18/2018 NINA JERONIMO MD, Ot M19.91 PRIMARY OSTEOARTHRITIS, UNSPECIFIED SITE 10/18/2018 NINA JERONIMO MD, Ot M54 .9 DORSALGIA, UNSPECIFIED 10/18/2018 NINA JERONIMO MD Ot R00 .0 TACHYCARDIA, UNSPECIFIED 10/18/2018 NINA JERONIMO MD Ot R41 .0 DISORIENTATION, UNSPECIFIED 10/18/2018 NINA JERONIMO MD Ot R65.20 SEVERE SEPSIS WITHOUT SEPTIC SHOCK 10/18/2018 NINA JERONIMO MD, Ot T40.4X5A ADVERSE EFFECT OF OTHER SYNTHETIC [place]ARCOT 10/18/2018 NINA JERONIMO MD Ot T42.4X5A ADVERSE EFFECT OF [place], INITI 10/18/2018 NINA JERONIMO MD, Ot T81.89XA OTH COMPLICATIONS OF PROCEDURES, NEC, IN 10/18/2018 NINA JERONIMO MD Ot Z87.891 PERSONAL HISTORY OF NICOTINE DEPENDENCE 10/18/2018 NINA JERONIMO MD Ot Z95 .1 PRESENCE OF AORTOCORONARY BYPASS GRAFT 10/18/2018 NINA JERONIMO MD Ot A41 .9 SEPSIS, UNSPECIFIED ORGANISM 10/18/2018 NINA JERONIMO MD Ot B37 .0 CANDIDAL STOMATITIS 10/18/2018 NINA JERONIMO MD Ot E87 .1 HYPO-OSMOLALITY AND HYPONATREMIA 10/18/2018 NINA JERONIMO MD Ot E87 .2 ACIDOSIS 10/18/2018 NINA JERONIMO MD Ot F05 DELIRIUM DUE TO KNOWN PHYSIOLOGICAL COND 10/18/2018 NINA JERONIMO MD Ot F32 .9 MAJOR DEPRESSIVE DISORDER, SINGLE EPISOD 10/18/2018 NINA JERONIMO MD Ot F41 .9 ANXIETY DISORDER, UNSPECIFIED 10/18/2018 NINA JERONIMO MD Ot G25.81 RESTLESS LEGS SYNDROME 10/18/2018 NINA JERONIMO MD Ot G89.29 OTHER CHRONIC PAIN 10/18/2018 NINA JERONIMO MD Ot G93.41 METABOLIC ENCEPHALOPATHY 10/18/2018 NINA JERONIMO MD, Ot I11 .0 HYPERTENSIVE HEART DISEASE WITH HEART FA 10/18/2018 NINA JERONIMO MD, Ot I25.10 ATHSCL HEART DISEASE OF [place] CORONARY 10/18/2018 NINA JERONIMO MD, Ot I25 .2 OLD MYOCARDIAL INFARCTION 10/18/2018 NINA JERONIMO MD, Ot I49 .3 VENTRICULAR PREMATURE DEPOLARIZATION 10/18/2018 NINA JERONIMO MD, Ot I50 .9 HEART FAILURE, UNSPECIFIED 10/18/2018 NINA JERONIMO MD, Ot J18 .1 LOBAR PNEUMONIA, UNSPECIFIED ORGANISM 10/18/2018 NINA JERONIMO MD, Ot J44 .0 CHRONIC OBSTRUCTIVE PULMON DISEASE W ACU 10/18/2018 NINA JERONIMO MD, Ot J44 .1 CHRONIC OBSTRUCTIVE PULMONARY DISEASE W 10/18/2018 NINA JERONIMO MD, Ot J96.00 ACUTE RESPIRATORY FAILURE, UNSP W HYPOXI 10/18/2018 NINA JERONIMO MD, Ot L40.50 ARTHROPATHIC PSORIASIS, UNSPECIFIED 10/18/2018 NINA JERONIMO MD, Ot M19.91 PRIMARY OSTEOARTHRITIS, UNSPECIFIED SITE 10/18/2018 NINA JERONIMO MD, Ot M54 .9 DORSALGIA, UNSPECIFIED 10/18/2018 NINA JERONIMO MD, Ot R00 .0 TACHYCARDIA, UNSPECIFIED 10/18/2018 NINA JERONIMO MD, Ot R41 .0 DISORIENTATION, UNSPECIFIED 10/18/2018 NINA JERONIMO MD Ot R65.20 SEVERE SEPSIS WITHOUT SEPTIC SHOCK 10/18/2018 NINA JERONIMO MD, Ot T40.4X5A ADVERSE EFFECT OF OTHER SYNTHETIC NARCOT 10/18/2018 NINA JERONIMO MD, Ot T42.4X5A ADVERSE EFFECT OF [place], INITI 10/18/2018 NINA JERONIMO MD, Ot T81.89XA OTH COMPLICATIONS OF PROCEDURES, NEC, IN 10/18/2018 NINA JERONIMO MD, Ot Z87.891 PERSONAL HISTORY OF NICOTINE DEPENDENCE 10/18/2018 NINA JERONIMO MD, Ot Z95 .1 PRESENCE OF AORTOCORONARY BYPASS GRAFT 10/19/2018 NINA JERONIMO MD, Ot A41 .9 SEPSIS, UNSPECIFIED ORGANISM 10/19/2018 NINA JERONIMO MD Ot B37 .0 CANDIDAL STOMATITIS 10/19/2018 NINA JERONIMO MD Ot E87 .1 HYPO-OSMOLALITY AND HYPONATREMIA 10/19/2018 NINA JERONIMO MD Ot E87 .2 ACIDOSIS 10/19/2018 NINA JERONIMO MD Ot F05 DELIRIUM DUE TO KNOWN PHYSIOLOGICAL COND 10/19/2018 NINA JERONIMO MD Ot F32 .9 MAJOR DEPRESSIVE DISORDER, SINGLE EPISOD 10/19/2018 NINA JERONIMO MD Ot F41 .9 ANXIETY DISORDER, UNSPECIFIED 10/19/2018 NINA JERONIMO MD Ot G25.81 RESTLESS LEGS SYNDROME 10/19/2018 NINA JERONIMO MD Ot G89.29 OTHER CHRONIC PAIN 10/19/2018 NINA JERONIMO MD Ot G93.41 METABOLIC ENCEPHALOPATHY 10/19/2018 NINA JERONIMO MD Ot I11 .0 HYPERTENSIVE HEART DISEASE WITH HEART FA 10/19/2018 NINA JERONIMO MD Ot I25.10 ATHSCL HEART DISEASE OF [place] CORONARY 10/19/2018 NINA JERONIMO MD Ot I25 .2 OLD MYOCARDIAL INFARCTION 10/19/2018 NINA JERONIMO MD Ot I49 .3 VENTRICULAR PREMATURE DEPOLARIZATION 10/19/2018 NINA JERONIMO MD Ot I50 .9 HEART FAILURE, UNSPECIFIED 10/19/2018 NINA JERONIMO MD Ot J18 .1 LOBAR PNEUMONIA, UNSPECIFIED ORGANISM 10/19/2018 NINA JERONIMO MD Ot J44 .0 CHRONIC OBSTRUCTIVE PULMON DISEASE W ACU 10/19/2018 NINA JERONIMO MD Ot J44 .1 CHRONIC OBSTRUCTIVE PULMONARY DISEASE W 10/19/2018 NINA JERONIMO MD Ot J96.00 ACUTE RESPIRATORY FAILURE, UNSP W HYPOXI 10/19/2018 NINA JERONIMO MD Ot L40.50 ARTHROPATHIC PSORIASIS, UNSPECIFIED 10/19/2018 NINA JERONIMO MD Ot M19.91 PRIMARY OSTEOARTHRITIS, UNSPECIFIED SITE 10/19/2018 NINA JERONIMO MD Ot M54 .9 DORSALGIA, UNSPECIFIED 10/19/2018 NINA JERONIMO MD Ot R00 .0 TACHYCARDIA, UNSPECIFIED 10/19/2018 NINA JERONIMO MD, Ot R41 .0 DISORIENTATION, UNSPECIFIED 10/19/2018 NINA JERONIMO MD, Ot R65.20 SEVERE SEPSIS WITHOUT SEPTIC SHOCK 10/19/2018 NINA JERONIMO MD, Ot T40.4X5A ADVERSE EFFECT OF OTHER SYNTHETIC NARCOT 10/19/2018 NINA JERONIMO MD, Ot T42.4X5A ADVERSE EFFECT OF [place], INITI 10/19/2018 NINA JERONIMO MD, Ot T81.89XA OTH COMPLICATIONS OF PROCEDURES, NEC, IN 10/19/2018 NINA JERONIMO MD, Ot Z87.891 PERSONAL HISTORY OF NICOTINE DEPENDENCE 10/19/2018 NINA JERONIMO MD, Ot Z95 .1 PRESENCE OF AORTOCORONARY BYPASS GRAFT 10/19/2018 NINA JERONIMO MD, Ot A40 .3 SEPSIS DUE TO STREPTOCOCCUS PNEUMONIAE 10/19/2018 NINA JERONIMO MD, Ot A41 .9 SEPSIS, UNSPECIFIED ORGANISM 10/19/2018 NINA JERONIMO MD Ot B37 .0 CANDIDAL STOMATITIS 10/19/2018 NINA JERONIMO MD Ot E87 .1 HYPO-OSMOLALITY AND HYPONATREMIA 10/19/2018 NINA JERONIMO MD, Ot E87 .2 ACIDOSIS 10/19/2018 NINA JERONIMO MD, Ot F05 DELIRIUM DUE TO KNOWN PHYSIOLOGICAL COND 10/19/2018 NINA JEROINMO MD, Ot F32 .9 MAJOR DEPRESSIVE DISORDER, SINGLE EPISOD 10/19/2018 NINA JERONIMO MD, Ot F41 .9 ANXIETY DISORDER, UNSPECIFIED 10/19/2018 NINA JERONIMO MD, Ot G04.90 ENCEPHALITIS AND ENCEPHALOMYELITIS, UNSP 10/19/2018 NINA JERONIMO MD, Ot G06 .0 INTRACRANIAL ABSCESS AND GRANULOMA 10/19/2018 NINA JERONIMO MD, Ot G25.81 RESTLESS LEGS SYNDROME 10/19/2018 NINA JERONIMO MD, Ot G89.29 OTHER CHRONIC PAIN 10/19/2018 NINA JERONIMO MD, Ot G93.41 METABOLIC ENCEPHALOPATHY 10/19/2018 NINA JERONIMO MD, Ot I11 .0 HYPERTENSIVE HEART DISEASE WITH HEART FA 10/19/2018 NINA JERONIMO MD, Ot I25.10 ATHSCL HEART DISEASE OF [place] CORONARY 10/19/2018 NINA JERONIMO MD, Ot I25 .2 OLD MYOCARDIAL INFARCTION 10/19/2018 NINA JERONIMO MD, Ot I48 .0 PAROXYSMAL ATRIAL FIBRILLATION 10/19/2018 NINA JERONIMO MD, Ot I49 .3 VENTRICULAR PREMATURE DEPOLARIZATION 10/19/2018 NINA JERNOIMO MD, Ot I50.31 ACUTE DIASTOLIC (CONGESTIVE) HEART FAILU 10/19/2018 NINA JERONIMO MD, Ot I50 .9 HEART FAILURE, UNSPECIFIED 10/19/2018 NINA JERONIMO MD, Ot I77 .2 RUPTURE OF ARTERY 10/19/2018 NINA JERONIMO MD, Ot J13 PNEUMONIA DUE TO STREPTOCOCCUS PNEUMONIA 10/19/2018 NINA JERONIMO MD, Ot J18 .1 LOBAR PNEUMONIA, UNSPECIFIED ORGANISM 10/19/2018 NINA JERONIMO MD, Ot J32 .9 CHRONIC SINUSITIS, UNSPECIFIED 10/19/2018 NINA JERONIMO MD, Ot J44 .0 CHRONIC OBSTRUCTIVE PULMON DISEASE W ACU 10/19/2018 NINA JERONIMO MD, Ot J44 .1 CHRONIC OBSTRUCTIVE PULMONARY DISEASE W 10/19/2018 NINA JERONIMO MD, Ot J96.00 ACUTE RESPIRATORY FAILURE, UNSP W HYPOXI 10/19/2018 NINA JERONIMO MD, Ot L40.50 ARTHROPATHIC PSORIASIS, UNSPECIFIED 10/19/2018 NINA JERONIMO MD, Ot M19.91 PRIMARY OSTEOARTHRITIS, UNSPECIFIED SITE 10/19/2018 NINA JERONIMO MD, Ot M54 .9 DORSALGIA, UNSPECIFIED 10/19/2018 NINA JERONIMO MD, Ot R00 .0 TACHYCARDIA, UNSPECIFIED 10/19/2018 NINA JERONIMO MD, Ot R41 .0 DISORIENTATION, UNSPECIFIED 10/19/2018 NINA JERONIMO MD, Ot R65.20 SEVERE SEPSIS WITHOUT SEPTIC SHOCK 10/19/2018 NINA JERONIMO MD, Ot T40.4X5A ADVERSE EFFECT OF OTHER SYNTHETIC NARCOT 10/19/2018 NINA JERONIMO MD, Ot T42.4X5A ADVERSE EFFECT OF [place], INITI 10/19/2018 NINA JERONIMO MD, Ot T81.89XA OT COMPLICATIONS OF PROCEDURES, NEC, IN 10/19/2018 NINA JERONIMO MD, Ot Z87.891 PERSONAL HISTORY OF NICOTINE DEPENDENCE 10/19/2018 NINA JERONIMO MD, Ot Z95 .1 PRESENCE OF AORTOCORONARY BYPASS GRAFT 10/26/2018 MOHIT ESPINO MD, Ot F17.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 DEPENDENCE, CIGARETTES, W OTH D 10/26/2018 MOHIT ESPINO MD, Ot J44 .9 CHRONIC OBSTRUCTIVE PULMONARY DISEASE, U 10/26/2018 MOHIT ESPINO MD, Ot L97.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 10/26/2018 MOHIT ESPINO MD, Ot L97.212 NON-PRESSURE CHRONIC ULCER OF RIGHT CALF 10/26/2018 MOHIT ESPINO MD, Ot L97.222 NON-PRESSURE CHRONIC ULCER OF LEFT CALF 10/26/2018 MOHIT ESPINO MD, Ot T65.222S TOXIC EFFECT OF TOBACCO CIGARETTES, SELF 10/26/2018 MOHIT ESPINO MD, Ot T81.31XA DISRUPTION OF EXTERNAL OPERATION (SURGIC 10/29/2018 MOHIT ESPINO MD, Ot F17.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 DEPENDENCE, CIGARETTES, W OTH D 10/29/2018 MOHIT ESPINO MD, Ot J44 .9 CHRONIC OBSTRUCTIVE PULMONARY DISEASE, U 10/29/2018 MOHIT ESPINO MD, Ot L97.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 10/29/2018 MOHIT ESPINO MD, Ot L97.212 NON-PRESSURE CHRONIC ULCER OF RIGHT CALF 10/29/2018 MOHIT ESPINO MD, Ot L97.222 NON-PRESSURE CHRONIC ULCER OF LEFT CALF 10/29/2018 MOHIT ESPINO MD, Ot T65.222S TOXIC EFFECT OF TOBACCO CIGARETTES, SELF 10/29/2018 MOHIT ESPINO MD, Ot T81.31XA DISRUPTION OF EXTERNAL OPERATION (SURGIC 11/26/2018 DAREN ANGELES MD Ot E78.00 PURE HYPERCHOLESTEROLEMIA, UNSPECIFIED 11/26/2018 DAREN ANGELES MD Ot I10 ESSENTIAL (PRIMARY) HYPERTENSION 11/26/2018 DAREN ANGELES MD, Ot I25.10 ATHSCL HEART DISEASE OF [place] CORONARY 11/26/2018 DAREN ANGELES MD, Ot I25.2 OLD MYOCARDIAL INFARCTION 11/26/2018 DAREN ANGELES MD, Ot J44.9 CHRONIC OBSTRUCTIVE PULMONARY DISEASE, U 11/26/2018 DAREN ANGELES MD Ot K94.29 OTHER COMPLICATIONS OF GASTROSTOMY 11/26/2018 DAREN ANGELES MD Ot Z79.82 INTERMEDIATE (CURRENT) USE OF ASPIRIN 11/26/2018 DAREN ANGELES MD Ot Z87.01 PERSONAL HISTORY OF PNEUMONIA (RECURRENT 11/26/2018 DAREN ANGELES MD, Ot Z87.891 PERSONAL HISTORY OF NICOTINE DEPENDENCE 11/26/2018 DAREN ANGELES MD Ot Z90.710 ACQUIRED ABSENCE OF BOTH CERVIX AND UTER 11/26/2018 DAREN ANGELES MD Ot Z95.1 PRESENCE OF AORTOCORONARY BYPASS GRAFT 11/26/2018 DAREN ANGELES MD Ot Z98.890 OTHER SPECIFIED POSTPROCEDURAL STATES 11/28/2018 DAREN ANGELES MD Ot E78.00 PURE HYPERCHOLESTEROLEMIA, UNSPECIFIED 11/28/2018 DAREN ANGELES MD Ot I10 ESSENTIAL (PRIMARY) HYPERTENSION 11/28/2018 DAREN ANGELES MD, Ot I25.10 ATHSCL HEART DISEASE OF [place] CORONARY 11/28/2018 DAREN ANGELES MD Ot I25.2 OLD MYOCARDIAL INFARCTION 11/28/2018 DAREN ANGELES MD, Ot J44.9 CHRONIC OBSTRUCTIVE PULMONARY DISEASE, U 11/28/2018 DAREN ANGELES MD Ot K94.29 OTHER COMPLICATIONS OF GASTROSTOMY 11/28/2018 DAREN ANGELES MD, Ot 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 2 CERVICALGIA 11/29/2018 ANASTASIA TEJEDA MD Ot J18. 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, UNSPECIFIED, UNCOMP 11/29/2018 PERLA GOLDEN APRN Ot J18.9 PNEUMONIA, UNSPECIFIED ORGANISM 11/29/2018 PERLA GOLDEN APRN Ot J44.9 CHRONIC OBSTRUCTIVE PULMONARY DISEASE, U 11/29/2018 PERLA GOLDEN APRN Ot R06.00 DYSPNEA, UNSPECIFIED 11/29/2018 KAILA ALEE ABERNATHY Ot M75.111 INCOMPLETE ROTATR-CUFF TEAR/RUPTR OF R S 11/29/2018 ALEE BRIGHT DO Ot M75.51 BURSITIS OF RIGHT SHOULDER 11/29/2018 MOHIT ESPINO MD, Ot F17.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 DEPENDENCE, CIGARETTES, W OTH D 11/29/2018 MOHIT ESPINO MD Ot 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 UL 11/29/2018 MOHIT ESPINO MD, Ot I70.242 ATHSCL [place] ARTERIES OF LEFT LEG W [facility] 11/29/2018 MOHIT ESPINO MD, Ot J44 .9 CHRONIC OBSTRUCTIVE PULMONARY DISEASE, U 11/29/2018 MOHIT ESPINO MD, Ot L97.212 NON-PRESSURE CHRONIC ULCER OF RIGHT CALF 11/29/2018 MOHIT ESPINO MD, Ot L97.222 NON-PRESSURE CHRONIC ULCER OF LEFT CALF 11/29/2018 MOHIT ESPINO MD, Ot L97.223 NON-PRESSURE CHRONIC ULCER OF LEFT CALF 11/29/2018 MOHIT ESPINO MD, Ot T81.31XA DISRUPTION OF EXTERNAL OPERATION (SURGIC 11/29/2018 MOHIT ESPINO MD, Ot L97.223 NON-PRESSURE CHRONIC ULCER OF LEFT CALF 11/29/2018 MOHIT ESPINO MD, Ot F17.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 DEPENDENCE, CIGARETTES, W OTH D 11/29/2018 MOHIT ESPINO MD, Ot J44 .9 CHRONIC OBSTRUCTIVE PULMONARY DISEASE, U 11/29/2018 MOHIT ESPINO MD, Ot L97.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 11/29/2018 MOHIT ESPINO MD, Ot L97.212 NON-PRESSURE CHRONIC ULCER OF RIGHT CALF 11/29/2018 MOHIT ESPINO MD, Ot L97.222 NON-PRESSURE CHRONIC ULCER OF LEFT CALF 11/29/2018 MOHIT ESPINO MD, Ot T65.222S TOXIC EFFECT OF TOBACCO CIGARETTES, SELF 11/29/2018 MOHIT ESPINO MD Ot T81.31XA DISRUPTION OF EXTERNAL OPERATION (SURGIC 11/29/2018 MOHIT ESPINO MD, Ot F17.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 DEPENDENCE, CIGARETTES, W OTH D 11/29/2018 MOHIT ESPINO MD, Ot J44 .9 CHRONIC OBSTRUCTIVE PULMONARY DISEASE, U 11/29/2018 MOHIT ESPINO MD, Ot L97.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 11/29/2018 MOHIT ESPINO MD, Ot L97.212 NON-PRESSURE CHRONIC ULCER OF RIGHT CALF 11/29/2018 MOHIT ESPINO MD, Ot L97.222 NON-PRESSURE CHRONIC ULCER OF LEFT CALF 11/29/2018 MOHIT ESPINO MD, Ot T65.222S TOXIC EFFECT OF TOBACCO CIGARETTES, SELF 11/29/2018 MOHIT ESPINO MD, Ot T81.31XA DISRUPTION OF EXTERNAL OPERATION (SURGIC 11/29/2018 MOHIT ESPINO MD, Ot F17.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 DEPENDENCE, CIGARETTES, W OTH D 11/29/2018 MOHIT ESPINO MD, Ot J44 .9 CHRONIC OBSTRUCTIVE PULMONARY DISEASE, U 11/29/2018 MOHIT ESPINO MD, Ot L97.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 11/29/2018 MOHIT ESPINO MD, Ot L97.212 NON-PRESSURE CHRONIC ULCER OF RIGHT CALF 11/29/2018 MOHIT ESPINO MD Ot L97.222 NON-PRESSURE CHRONIC ULCER OF LEFT CALF 11/29/2018 MOHIT ESPINO MD Ot T65.222S TOXIC EFFECT OF TOBACCO CIGARETTES, SELF 11/29/2018 MOHIT ESPINO MD Ot T81.31XA DISRUPTION OF EXTERNAL OPERATION (SURGIC 11/29/2018 MOHIT ESPINO MD, Ot F17.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 DEPENDENCE, CIGARETTES, W OTH D 11/29/2018 MOHIT ESPINO MD, Ot J44 .9 CHRONIC OBSTRUCTIVE PULMONARY DISEASE, U 11/29/2018 MOHIT ESPINO MD, Ot L97.212 NON-PRESSURE CHRONIC ULCER OF RIGHT CALF 11/29/2018 MOHIT ESPINO MD, Ot L97.222 NON-PRESSURE CHRONIC ULCER OF LEFT CALF 11/29/2018 MOHIT ESPINO MD, Ot T65.222S TOXIC EFFECT OF TOBACCO CIGARETTES, SELF 11/29/2018 MOHIT ESPINO MD, Ot T81.31XA DISRUPTION OF EXTERNAL OPERATION (SURGIC 11/29/2018 MOHIT ESPINO MD, Ot F17.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 DEPENDENCE, CIGARETTES, W OTH D 11/29/2018 MOHIT ESPINO MD, Ot J44 .9 CHRONIC OBSTRUCTIVE PULMONARY DISEASE, U 11/29/2018 MOHIT ESPINO MD, Ot L97.212 NON-PRESSURE CHRONIC ULCER OF RIGHT CALF 11/29/2018 OMHIT ESPINO MD, Ot L97.222 NON-PRESSURE CHRONIC ULCER OF LEFT CALF 11/29/2018 MOHIT ESPINO MD, Ot L97.223 NON-PRESSURE CHRONIC ULCER OF LEFT CALF 11/29/2018 MOHIT ESPINO MD, Ot T65.222S TOXIC EFFECT OF TOBACCO CIGARETTES, SELF 11/29/2018 MOHIT ESPINO MD, Ot T81.31XA DISRUPTION OF EXTERNAL OPERATION (SURGIC 11/29/2018 MOHIT ESPINO MD, Ot I70.202 UNSP ATHSCL [place] ARTERIES OF EXTREMITI 11/29/2018 MOHIT ESPINO MD, Ot L97.223 NON-PRESSURE CHRONIC ULCER OF LEFT CALF 11/29/2018 MOHIT ESPINO MD, Ot F17.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 DEPENDENCE, CIGARETTES, W OTH D 11/29/2018 MOHIT ESPINO MD Ot 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 UL 11/29/2018 MOHIT ESPINO MD Ot I70.242 ATHSCL [place] ARTERIES OF LEFT LEG W ULC 11/29/2018 MOHIT ESPINO MD, Ot J44 .9 CHRONIC OBSTRUCTIVE PULMONARY DISEASE, U 11/29/2018 MOHIT ESPINO MD, Ot L97.212 NON-PRESSURE CHRONIC ULCER OF RIGHT CALF 11/29/2018 MOHIT ESPINO MD, Ot L97.222 NON-PRESSURE CHRONIC ULCER OF LEFT CALF 11/29/2018 MOHIT ESPINO MD, Ot L97.223 NON-PRESSURE CHRONIC ULCER OF LEFT CALF 11/29/2018 MOHIT ESPINO MD, Ot T81.31XA DISRUPTION OF EXTERNAL OPERATION (SURGIC 12/02/2018 KARTHIK RAYMOND, DAREN Villegas Ot E78.00 PURE HYPERCHOLESTEROLEMIA, UNSPECIFIED 12/02/2018 DAREN ANGELES MD, Ot I10 ESSENTIAL (PRIMARY) HYPERTENSION 12/02/2018 DAREN ANGELES MD, Ot I25.10 ATHSCL HEART DISEASE OF [place] CORONARY 12/02/2018 DAREN ANGELES MD, Ot I25.2 OLD MYOCARDIAL INFARCTION 12/02/2018 DAREN ANGELES MD, Ot J44.9 CHRONIC OBSTRUCTIVE PULMONARY DISEASE, U 12/02/2018 DAREN ANGELES MD, Ot K94.29 OTHER COMPLICATIONS OF GASTROSTOMY 12/02/2018 DAREN ANGELES MD, Ot Z79.82 INTERMEDIATE (CURRENT) USE OF ASPIRIN 12/02/2018 DAREN ANGELES MD, Ot Z87.01 PERSONAL HISTORY OF PNEUMONIA (RECURRENT 12/02/2018 DAREN ANGELES MD, Ot Z87.891 PERSONAL HISTORY OF NICOTINE DEPENDENCE 12/02/2018 DAREN ANGELES MD Ot Z90.710 ACQUIRED ABSENCE OF BOTH CERVIX AND UTER 12/02/2018 DAREN ANGELES MD Ot Z95.1 PRESENCE OF AORTOCORONARY BYPASS GRAFT 12/02/2018 DAREN ANGELES MD Ot Z98.890 OTHER SPECIFIED POSTPROCEDURAL STATES 12/02/2018 JASON ROLON APRN Ot D64 .9 ANEMIA, UNSPECIFIED 12/02/2018 JASON ROLON APRN Ot E78.00 PURE HYPERCHOLESTEROLEMIA, UNSPECIFIED 12/02/2018 JASON ROLON APRN Ot E83.42 HYPOMAGNESEMIA 12/02/2018 JASON ROLON APRN Ot E87 .6 HYPOKALEMIA 12/02/2018 JASON ROLON APRN Ot I10 ESSENTIAL (PRIMARY) HYPERTENSION 12/02/2018 JASON ROLON APRN Ot I25.10 ATHSCL HEART DISEASE OF [place] CORONARY 12/02/2018 JASON ROLON APRN Ot I25 .2 OLD MYOCARDIAL INFARCTION 12/02/2018 JASON ROLON APRN, Ot J44 .9 CHRONIC OBSTRUCTIVE PULMONARY DISEASE, U 12/02/2018 JASON ROLON APRN Ot L98 .9 DISORDER OF THE SKIN AND SUBCUTANEOUS TI 12/02/2018 JASON ROLON APRN Ot M79.89 OTHER SPECIFIED SOFT TISSUE DISORDERS 12/02/2018 JASON ROLON APRN Ot R60 .0 LOCALIZED EDEMA 12/02/2018 JASON ROLON APRN Ot Z79.82 BLANCHARD GRINDER OPERATOR (CURRENT) 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 OF ASPIRIN 12/02/2018 JASON ROLON APRN Ot Z87.01 PERSONAL HISTORY OF PNEUMONIA (RECURRENT 12/02/2018 JASON ROLON APRN Ot Z87.891 PERSONAL HISTORY OF NICOTINE DEPENDENCE 12/02/2018 JASON ROLON APRN Ot Z90.710 ACQUIRED ABSENCE OF BOTH CERVIX AND UTER 12/02/2018 JASON ROLON APRN Ot Z95 .1 PRESENCE OF AORTOCORONARY BYPASS GRAFT 12/05/2018 JASON ROLON APRN Ot D64 .9 ANEMIA, UNSPECIFIED 12/05/2018 JASON ROLON APRN Ot E78.00 PURE HYPERCHOLESTEROLEMIA, UNSPECIFIED 12/05/2018 JASON ROLON APRN Ot E83.42 HYPOMAGNESEMIA 12/05/2018 JASON ROLON APRN Ot E87 .6 HYPOKALEMIA 12/05/2018 JASON ROLON APRN Ot I10 ESSENTIAL (PRIMARY) HYPERTENSION 12/05/2018 JASON ROLON APRN Ot I25.10 ATHSCL HEART DISEASE OF [place] CORONARY 12/05/2018 JASON ROLON APRN Ot I25 .2 OLD MYOCARDIAL INFARCTION 12/05/2018 JASON ROLON APRN Ot J44 .9 CHRONIC OBSTRUCTIVE PULMONARY DISEASE, U 12/05/2018 JASON ROLON APRN Ot L98 .9 DISORDER OF THE SKIN AND SUBCUTANEOUS TI 12/05/2018 JASON ROLON APRN Ot M79.89 OTHER SPECIFIED SOFT TISSUE DISORDERS 12/05/2018 JASON ROLON APRN Ot R60 .0 LOCALIZED EDEMA 12/05/2018 JASON ROLON APRN Ot Z79.82 BLANCHARD GRINDER OPERATOR (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) 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 OF ASPIRIN 12/05/2018 JASON ROLON APRN Ot Z87.01 PERSONAL HISTORY OF PNEUMONIA (RECURRENT 12/05/2018 JASON ROLON APRN Ot Z87.891 PERSONAL HISTORY OF NICOTINE DEPENDENCE 12/05/2018 JASON ROLON APRN Ot Z90.710 ACQUIRED ABSENCE OF BOTH CERVIX AND UTER 12/05/2018 JASON ROLON APRN Ot Z95 .1 PRESENCE OF AORTOCORONARY BYPASS GRAFT 12/15/2018 LUNDYVENKAT GUILLORY MD R Ot B95.5 UNSP STREPTOCOCCUS THE CAUSE OF DISEA 12/15/2018 VENKAT LUNDY MD R Ot R78.8 1 BACTEREMIA 12/16/2018 VENKAT LUNDY MD R Ot B95.5 UNSP STREPTOCOCCUS THE CAUSE OF DISEA 12/16/2018 VENKAT LUNDY MD R Ot R78.8 1 BACTEREMIA 12/16/2018 VENKAT LUNDY MD R Ot B95.5 UNSP STREPTOCOCCUS THE CAUSE OF DISEA 12/16/2018 VENKAT LUNDY MD R Ot R78.8 1 BACTEREMIA 12/17/2018 VENKAT LUNDY MD R Ot B95.5 UNSP STREPTOCOCCUS THE CAUSE OF DISEA 12/17/2018 VENKAT LUNDY MD R Ot R78.8 1 BACTEREMIA 12/18/2018 VENKAT LUNDY MD R Ot B95.5 UNSP STREPTOCOCCUS THE CAUSE OF DISEA 12/18/2018 VENKAT LUNDY MD R Ot R78.8 1 BACTEREMIA 12/18/2018 VENKAT LUNDY MD R Ot B95.5 UNSP STREPTOCOCCUS THE CAUSE OF DISEA 12/18/2018 VENKAT LUNDY MD R Ot R78.8 1 BACTEREMIA 12/19/2018 VENKAT LUNDY MD R Ot B95.5 UNSP STREPTOCOCCUS THE CAUSE OF DISEA 12/19/2018 VENKAT LUNDY MD R Ot R78.8 1 BACTEREMIA 12/19/2018 VENKAT LUNDY MD R Ot B95.5 UNSP STREPTOCOCCUS THE CAUSE OF DISEA 12/19/2018 VENKAT LUNDY MD R Ot R78.8 1 BACTEREMIA 12/20/2018 VENKAT LUNDY MD R Ot B95.5 UNSP STREPTOCOCCUS THE CAUSE OF DISEA 12/20/2018 VENKAT LUNDY MD R Ot R78.8 1 BACTEREMIA 12/21/2018 RICHARDSON SCHUMACHER MD Ot H74.9 3 UNSPECIFIED DISORDER OF MIDDLE EAR AND M 12/21/2018 VENKAT LUNDY MD R Ot B95.5 UNSP STREPTOCOCCUS THE CAUSE OF DISEA 12/21/2018 VENKAT LUNDY MD R Ot R78.8 1 BACTEREMIA 12/21/2018 VENKAT LUNDY MD R Ot B95.5 UNSP STREPTOCOCCUS THE CAUSE OF DISEA 12/21/2018 GREGORY LUNDY MDIR R Ot R78.8 1 BACTEREMIA 01/28/2019 CHANDRIKA BURLESON MD Ot D64. 9 ANEMIA, UNSPECIFIED 01/28/2019 SARAH BETH RAYMOND, CHANDRIKA Rhodes Ot E78. 00 PURE HYPERCHOLESTEROLEMIA, UNSPECIFIED 01/28/2019 SARAH BETH RAYMOND, CHANDRIKA Rhodes Ot I10 ESSENTIAL (PRIMARY) HYPERTENSION 01/28/2019 CHANDRIKA BURLESON MD Ot I25. 10 ATHSCL HEART DISEASE OF [place] CORONARY 01/28/2019 CHANDRIKA BURLESON MD Ot I25. 2 OLD MYOCARDIAL INFARCTION 01/28/2019 CHANDRIKA BURLESON MD Ot J44. 9 CHRONIC OBSTRUCTIVE PULMONARY DISEASE, U 01/28/2019 CHANDRIKA BURLESON MD Ot M54. 5 LOW BACK PAIN 01/28/2019 CHANDRIKA BURLESON MD Ot X50.0XXA OVEREXERTION FROM STRENUOUS MOVEMENT OR 01/28/2019 CHANDRIKA BURLESON MD Ot Z79. 82 BLANCHARD GRINDER OPERATOR (CURRENT) USE OF ASPIRIN 01/28/2019 CHANDRIKA BURLESON MD Ot Z87. 01 PERSONAL HISTORY OF PNEUMONIA (RECURRENT 01/28/2019 CHANDRIKA BURLESON MD Ot Z87.891 PERSONAL HISTORY OF NICOTINE DEPENDENCE 01/28/2019 CHANDRIKA BURLESON MD Ot Z90.710 ACQUIRED ABSENCE OF BOTH CERVIX AND UTER 01/28/2019 CHANDRIKA BURLESON MD Ot Z95. 1 PRESENCE OF AORTOCORONARY BYPASS GRAFT 01/28/2019 CHANDRIKA BURLESON MD Ot Z98.890 OTHER SPECIFIED POSTPROCEDURAL STATES 01/30/2019 CHANDRIKA BURLESON MD Ot D64. 9 ANEMIA, UNSPECIFIED 01/30/2019 SARAH BETH RAYMOND, CHANDRIKA Rhodes Ot E78. 00 PURE HYPERCHOLESTEROLEMIA, UNSPECIFIED 01/30/2019 SARAH BETH RAYMOND, CHANDRIKA Rhodes Ot I10 ESSENTIAL (PRIMARY) HYPERTENSION 01/30/2019 CHANDRIKA BURLESON MD Ot I25. 10 ATHSCL HEART DISEASE OF [place] CORONARY 01/30/2019 CHANDRIKA BURLESON MD Ot I25. 2 OLD MYOCARDIAL INFARCTION 01/30/2019 CHANDRIKA BURLESON MD Ot J44. 9 CHRONIC OBSTRUCTIVE PULMONARY DISEASE, U 01/30/2019 CHANDRIKA BURLESON MD Ot M54. 5 LOW BACK PAIN 01/30/2019 CHANDRIKA BURLESON MD Ot X50.0XXA OVEREXERTION FROM STRENUOUS MOVEMENT OR 01/30/2019 SARAH BETH RAYMOND CHANDRIKA Rhodes Ot Z79. 82 INTERMEDIATE (CURRENT) USE OF ASPIRIN 01/30/2019 SARAH BETH RAYMOND CHANDRIKA Rhodes Ot Z87. 01 PERSONAL HISTORY OF PNEUMONIA (RECURRENT 01/30/2019 SARAH BETH RAYMOND CHANDRIKA Rhodes Ot Z87.891 PERSONAL HISTORY OF NICOTINE DEPENDENCE 01/30/2019 SARAH BETH RAYMOND CHANDRIKA Meagan Ot Z90.710 ACQUIRED ABSENCE OF BOTH CERVIX AND UTER 01/30/2019 SARAH BETH RAYMOND CHANDRIKA Rhodes Ot Z95. 1 PRESENCE OF AORTOCORONARY BYPASS GRAFT 01/30/2019 SARAH BETH RAYMOND CHANDRIKA Rhodes Ot Z98.890 OTHER SPECIFIED POSTPROCEDURAL STATES 02/01/2019 WINSOME RAYMOND, RICHARDSON Hood Ot H74.9 3 UNSPECIFIED DISORDER OF MIDDLE EAR AND M 02/01/2019 NIKHIL RAYMOND, ANASTASIA Torres Ot M54. 2 CERVICALGIA 02/01/2019 NIKHIL RAYMOND, ANASTASIA Torres Ot J18. 9 PNEUMONIA, UNSPECIFIED ORGANISM 02/01/2019 TIA ROLON APRN Ot M47.812 SPONDYLOSIS W/O MYELOPATHY OR RADICULOPA 02/01/2019 PERLA GOLDEN APRN Ot F17.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, UNSPECIFIED, UNCOMP 02/01/2019 PERLA GOLDEN APRN Ot J18.9 PNEUMONIA, UNSPECIFIED ORGANISM 02/01/2019 PERLA GOLDEN APRN Ot J44.9 CHRONIC OBSTRUCTIVE PULMONARY DISEASE, U 02/01/2019 PERLA GOLDEN APRN Ot R06.00 DYSPNEA, UNSPECIFIED 02/01/2019 ALEE BRIGHT DO Ot M75.111 INCOMPLETE ROTATR-CUFF TEAR/RUPTR OF R S 02/01/2019 ALEE BRIGHT DO Ot M75.51 BURSITIS OF RIGHT SHOULDER 02/01/2019 MOHIT ESPINO MD Ot F17.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 DEPENDENCE, CIGARETTES, W OTH D 02/01/2019 MOHIT ESPINO MD Ot 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 UL 02/01/2019 MOHIT ESPINO MD Ot I70.242 ATHSCL [place] ARTERIES OF LEFT LEG W ULC 02/01/2019 MOHIT ESPINO MD, Ot J44 .9 CHRONIC OBSTRUCTIVE PULMONARY DISEASE, U 02/01/2019 MOHIT ESPINO MD, Ot L97.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-PRESSURE CHRONIC ULCER OF RIGHT CALF 02/01/2019 MOHIT ESPINO MD, Ot L97.222 NON-PRESSURE CHRONIC ULCER OF LEFT CALF 02/01/2019 MOHIT ESPINO MD, Ot L97.223 NON-PRESSURE CHRONIC ULCER OF LEFT CALF 02/01/2019 MOHIT ESPINO MD Ot T81.31XA DISRUPTION OF EXTERNAL OPERATION (SURGIC 02/01/2019 MOHIT ESPINO MD Ot I70.202 UNSP ATHSCL [place] ARTERIES OF [facility] 02/01/2019 MOHIT ESPINO MD, Ot L97.223 NON-PRESSURE CHRONIC ULCER OF LEFT CALF 02/01/2019 MOHIT ESPINO MD, Ot F17.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 DEPENDENCE, CIGARETTES, W OTH D 02/01/2019 MOHIT ESPINO MD, Ot J44 .9 CHRONIC OBSTRUCTIVE PULMONARY DISEASE, U 02/01/2019 MOHIT ESPINO MD, Ot L97.212 NON-PRESSURE CHRONIC ULCER OF RIGHT CALF 02/01/2019 MOHIT ESPINO MD, Ot L97.222 NON-PRESSURE CHRONIC ULCER OF LEFT CALF 02/01/2019 MOHIT ESPINO MD, Ot L97.223 NON-PRESSURE CHRONIC ULCER OF LEFT CALF 02/01/2019 MOHIT ESPINO MD, Ot T65.222S TOXIC EFFECT OF TOBACCO CIGARETTES, SELF 02/01/2019 MOHIT ESPINO MD, Ot T81.31XA DISRUPTION OF EXTERNAL OPERATION (SURGIC 02/01/2019 MOHIT ESPINO MD, Ot F17.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 DEPENDENCE, CIGARETTES, W OTH D 02/01/2019 MOHIT ESPINO MD, Ot J44 .9 CHRONIC OBSTRUCTIVE PULMONARY DISEASE, U 02/01/2019 MOHIT ESPINO MD, Ot L97.212 NON-PRESSURE CHRONIC ULCER OF RIGHT CALF 02/01/2019 MOHIT ESPINO MD Ot L97.222 NON-PRESSURE CHRONIC ULCER OF LEFT CALF 02/01/2019 MOHIT ESPINO MD, Ot T65.222S TOXIC EFFECT OF TOBACCO CIGARETTES, SELF 02/01/2019 MOHIT ESPINO MD Ot T81.31XA DISRUPTION OF EXTERNAL OPERATION (SURGIC 02/01/2019 MOHIT ESPINO MD, Ot F17.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 DEPENDENCE, CIGARETTES, W OTH D 02/01/2019 MOHIT ESPINO MD, Ot J44 .9 CHRONIC OBSTRUCTIVE PULMONARY DISEASE, U 02/01/2019 MOHIT ESPINO MD, Ot L97.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 02/01/2019 MOHIT ESPINO MD, Ot L97.212 NON-PRESSURE CHRONIC ULCER OF RIGHT CALF 02/01/2019 MOHIT ESPINO MD, Ot L97.222 NON-PRESSURE CHRONIC ULCER OF LEFT CALF 02/01/2019 MOHIT ESPINO MD, Ot T65.222S TOXIC EFFECT OF TOBACCO CIGARETTES, SELF 02/01/2019 MOHIT ESPINO MD, Ot T81.31XA DISRUPTION OF EXTERNAL OPERATION (SURGIC 02/01/2019 MOHIT ESPINO MD, Ot F17.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 DEPENDENCE, CIGARETTES, W OTH D 02/01/2019 MOHIT ESPINO MD, Ot J44 .9 CHRONIC OBSTRUCTIVE PULMONARY DISEASE, U 02/01/2019 MOHIT ESPINO MD, Ot L97.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 02/01/2019 MOHIT ESPINO MD, Ot L97.212 NON-PRESSURE CHRONIC ULCER OF RIGHT CALF 02/01/2019 MOHIT ESPINO MD, Ot L97.222 NON-PRESSURE CHRONIC ULCER OF LEFT CALF 02/01/2019 MOHIT ESPINO MD, Ot T65.222S TOXIC EFFECT OF TOBACCO CIGARETTES, SELF 02/01/2019 MOHIT ESPINO MD, Ot T81.31XA DISRUPTION OF EXTERNAL OPERATION (SURGIC 02/01/2019 WINSOME RAYMOND, RICHARDSON Hood Ot H74.9 3 UNSPECIFIED DISORDER OF MIDDLE EAR AND M 03/14/2019 LAUREN BAIRD STAKING TECHNICIAN Ot M48.06 SPINAL STENOSIS, LUMBAR REGION 03/14/2019 PERLA GOLDEN APRN Ot F17.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, UNSPECIFIED, UNCOMP 03/14/2019 PERLA GOLDEN APRN Ot J18.9 PNEUMONIA, UNSPECIFIED ORGANISM 03/14/2019 PERLA GOLDEN APRN Ot R06.00 DYSPNEA, UNSPECIFIED 03/14/2019 TIA ROLON APRN Ot Z12.31 ENCNTR SCREEN MAMMOGRAM FOR MALIGNANT NE 03/14/2019 MOHIT ESPINO MD Ot I70.202 UNSP ATHSCL [place] ARTERIES OF EXTREMITI 03/14/2019 MOHIT ESPINO MD, Ot F17.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 DEPENDENCE, CIGARETTES, W OTH D 03/14/2019 MOHIT ESPINO MD, Ot J44 .9 CHRONIC OBSTRUCTIVE PULMONARY DISEASE, U 03/14/2019 MOHIT ESPINO MD, Ot L97.212 NON-PRESSURE CHRONIC ULCER OF RIGHT CALF 03/14/2019 MOHIT ESPINO MD, Ot L97.222 NON-PRESSURE CHRONIC ULCER OF LEFT CALF 03/14/2019 MOHIT ESPINO MD, Ot L97.223 NON-PRESSURE CHRONIC ULCER OF LEFT CALF 03/14/2019 MOHIT ESPINO MD, Ot T65.222S TOXIC EFFECT OF TOBACCO CIGARETTES, SELF 03/14/2019 MOHIT ESPINO MD, Ot T81.31XA DISRUPTION OF EXTERNAL OPERATION (SURGIC 03/14/2019 MOHIT ESPINO MD, Ot F17.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 DEPENDENCE, CIGARETTES, W OTH D 03/14/2019 MOHIT ESPINO MD, Ot J44 .9 CHRONIC OBSTRUCTIVE PULMONARY DISEASE, U 03/14/2019 MOHIT ESPINO MD, Ot L97.212 NON-PRESSURE CHRONIC ULCER OF RIGHT CALF 03/14/2019 MOHIT ESPINO MD, Ot L97.222 NON-PRESSURE CHRONIC ULCER OF LEFT CALF 03/14/2019 MOHIT ESPINO MD, Ot T65.222S TOXIC EFFECT OF TOBACCO CIGARETTES, SELF 03/14/2019 MOHIT ESPINO MD, Ot T81.31XA DISRUPTION OF EXTERNAL OPERATION (SURGIC 03/14/2019 MOHIT ESPINO MD, Ot L97.223 NON-PRESSURE CHRONIC ULCER OF LEFT CALF 03/14/2019 MOHIT ESPINO MD, Ot F17.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 DEPENDENCE, CIGARETTES, W OTH D 03/14/2019 MOHIT ESPINO MD, Ot J44 .9 CHRONIC OBSTRUCTIVE PULMONARY DISEASE, U 03/14/2019 MOHIT ESPINO MD, Ot L97.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 03/14/2019 MOHIT ESPINO MD, Ot L97.212 NON-PRESSURE CHRONIC ULCER OF RIGHT CALF 03/14/2019 MOHIT ESPINO MD Ot L97.222 NON-PRESSURE CHRONIC ULCER OF LEFT CALF 03/14/2019 MOHIT ESPINO MD, Ot T65.222S TOXIC EFFECT OF TOBACCO CIGARETTES, SELF 03/14/2019 MOHIT ESPINO MD, Ot T81.31XA DISRUPTION OF EXTERNAL OPERATION (SURGIC 03/15/2019 DAREN ANGELES MD Ot E78.00 PURE HYPERCHOLESTEROLEMIA, UNSPECIFIED 03/15/2019 DAREN ANGELES MD Ot I10 ESSENTIAL (PRIMARY) HYPERTENSION 03/15/2019 DAREN ANGELES MD, Ot I25.10 ATHSCL HEART DISEASE OF [place] CORONARY 03/15/2019 DAREN ANGELES MD, Ot I25.2 OLD MYOCARDIAL INFARCTION 03/15/2019 DAREN ANGELES MD, Ot J44.9 CHRONIC OBSTRUCTIVE PULMONARY DISEASE, U 03/15/2019 DAREN ANGELES MD Ot K94.29 OTHER COMPLICATIONS OF GASTROSTOMY 03/15/2019 DAREN ANGELES MD Ot Z79.82 INTERMEDIATE (CURRENT) USE OF ASPIRIN 03/15/2019 DAREN ANGELES MD Ot Z87.01 PERSONAL HISTORY OF PNEUMONIA (RECURRENT 03/15/2019 DAREN ANGELES MD, Ot Z87.891 PERSONAL HISTORY OF NICOTINE DEPENDENCE 03/15/2019 DAREN ANGELES MD Ot Z90.710 ACQUIRED ABSENCE OF BOTH CERVIX AND UTER 03/15/2019 DAREN ANGELES MD Ot Z95.1 PRESENCE OF AORTOCORONARY BYPASS GRAFT 03/15/2019 DAREN ANGELES MD Ot Z98.890 OTHER SPECIFIED POSTPROCEDURAL STATES 03/27/2019 SARABJIT EATON DO Ot E78.00 PURE HYPERCHOLESTEROLEMIA, UNSPECIFIED 03/27/2019 SARABJIT EATON DO Ot E78.5 HYPERLIPIDEMIA, UNSPECIFIED 03/27/2019 SARABJIT EATON DO Ot F17.21 0 NICOTINE DEPENDENCE, CIGARETTES, UNCOMPL 03/27/2019 SARABJIT EATON DO Ot F32.9 MAJOR DEPRESSIVE DISORDER, SINGLE EPISOD 03/27/2019 SARABJIT EATON DO Ot F41.9 ANXIETY DISORDER, UNSPECIFIED 03/27/2019 SARABJIT EATON DO Ot I11.0 HYPERTENSIVE HEART DISEASE WITH HEART FA 03/27/2019 SARABJIT EATON DO Ot I25.10 ATHSCL HEART DISEASE OF [place] CORONARY 03/27/2019 SARABJIT EATON DO Ot I25.2 OLD MYOCARDIAL INFARCTION 03/27/2019 SARABJIT EATON DO Ot I48.0 PAROXYSMAL ATRIAL FIBRILLATION 03/27/2019 SARABJIT EATON DO Ot I50.22 CHRONIC SYSTOLIC (CONGESTIVE) HEART FAIL 03/27/2019 SARABJIT EATON DO Ot J18.1 LOBAR PNEUMONIA, UNSPECIFIED ORGANISM 03/27/2019 EATON DO, SARABJIT Ot J43.9 EMPHYSEMA, UNSPECIFIED 03/27/2019 EATON DO, SARABJIT Ot L40.50 ARTHROPATHIC PSORIASIS, UNSPECIFIED 03/27/2019 EATON DO, SARABJIT Ot M16.11 UNILATERAL PRIMARY OSTEOARTHRITIS, RIGHT 03/27/2019 EATON DO, SARABJIT Ot M19.91 PRIMARY OSTEOARTHRITIS, UNSPECIFIED SITE 03/27/2019 EATON DO, SARABJIT Ot M54.9 DORSALGIA, UNSPECIFIED 03/27/2019 EATON DO, SARABJIT Ot R07.89 OTHER CHEST PAIN 03/27/2019 EATON DO, SARABJIT Ot R13.10 DYSPHAGIA, UNSPECIFIED 03/27/2019 EATON DO, SARABJIT Ot R51 HEADACHE 03/27/2019 EATON DO, SARABJIT Ot R53.1 WEAKNESS 03/27/2019 EATON DO, SARABJIT Ot R59.0 LOCALIZED ENLARGED LYMPH NODES 03/27/2019 EATON DO SARABJIT Ot Z95.1 PRESENCE OF AORTOCORONARY BYPASS GRAFT 06/14/2019 NIKHIL RAYMOND, ANASTASIA Torres Ot M54. 2 CERVICALGIA 06/14/2019 ANASTASIA TEJEDA MD, Ot J18. 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 06/14/2019 PERLA GOLDEN APRN Ot F17.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, UNSPECIFIED, UNCOMP 06/14/2019 PERLA GOLDEN APRN Ot J18.9 PNEUMONIA, UNSPECIFIED ORGANISM 06/14/2019 PERLA GOLDEN APRN Ot J44.9 CHRONIC OBSTRUCTIVE PULMONARY DISEASE, U 06/14/2019 PERLA GOLDEN APRN Ot R06.00 DYSPNEA, UNSPECIFIED 06/14/2019 ALEE BRIGHT DO, Ot M75.111 INCOMPLETE ROTATR-CUFF TEAR/RUPTR OF R S 06/14/2019 ALEE BRIGHT DO, Ot M75.51 BURSITIS OF RIGHT SHOULDER 06/14/2019 KENZIE RAYMOND, MOHIT Mcnally Ot F17.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 DEPENDENCE, CIGARETTES, W OTH D 06/14/2019 KENZIE RAYMOND, MOHIT Mcnally Ot 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 UL 06/14/2019 MOHIT ESPINO MD Ot I70.242 ATHSCL [place] ARTERIES OF LEFT LEG W ULC 06/14/2019 MOHIT ESPINO MD, Ot J44 .9 CHRONIC OBSTRUCTIVE PULMONARY DISEASE, U 06/14/2019 MOHIT ESPINO MD, Ot L97.212 NON-PRESSURE CHRONIC ULCER OF RIGHT CALF 06/14/2019 MOHIT ESPINO MD Ot L97.222 NON-PRESSURE CHRONIC ULCER OF LEFT CALF 06/14/2019 MOHIT ESPINO MD, Ot L97.223 NON-PRESSURE CHRONIC ULCER OF LEFT CALF 06/14/2019 MOHIT ESPINO MD, Ot T81.31XA DISRUPTION OF EXTERNAL OPERATION (SURGIC 06/14/2019 MOHIT ESPINO MD, Ot I70.202 UNSP ATHSCL [place] ARTERIES OF EXTREMITI 06/14/2019 MOHIT ESPINO MD, Ot L97.223 NON-PRESSURE CHRONIC ULCER OF LEFT CALF 06/14/2019 MOHIT ESPINO MD, Ot F17.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 DEPENDENCE, CIGARETTES, W OTH D 06/14/2019 MOHIT ESPINO MD, Ot J44 .9 CHRONIC OBSTRUCTIVE PULMONARY DISEASE, U 06/14/2019 MOHIT ESPINO MD, Ot L97.212 NON-PRESSURE CHRONIC ULCER OF RIGHT CALF 06/14/2019 MOHIT ESPINO MD, Ot L97.222 NON-PRESSURE CHRONIC ULCER OF LEFT CALF 06/14/2019 MOHIT ESPINO MD, Ot L97.223 NON-PRESSURE CHRONIC ULCER OF LEFT CALF 06/14/2019 MOHIT ESPINO MD, Ot T65.222S TOXIC EFFECT OF TOBACCO CIGARETTES, SELF 06/14/2019 MOHIT ESPINO MD, Ot T81.31XA DISRUPTION OF EXTERNAL OPERATION (SURGIC 06/14/2019 MOHIT ESPINO MD, Ot F17.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 DEPENDENCE, CIGARETTES, W OTH D 06/14/2019 MOHIT ESPINO MD, Ot J44 .9 CHRONIC OBSTRUCTIVE PULMONARY DISEASE, U 06/14/2019 MOHIT ESPINO MD, Ot L97.212 NON-PRESSURE CHRONIC ULCER OF RIGHT CALF 06/14/2019 MOHIT ESPINO MD, Ot L97.222 NON-PRESSURE CHRONIC ULCER OF LEFT CALF 06/14/2019 MOHIT ESPINO MD, Ot T65.222S TOXIC EFFECT OF TOBACCO CIGARETTES, SELF 06/14/2019 MOHIT ESPINO MD Ot T81.31XA DISRUPTION OF EXTERNAL OPERATION (SURGIC 06/14/2019 KENZIE MD, MOHIT G Ot F17.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 DEPENDENCE, CIGARETTES, W OTH D 06/14/2019 MOHIT ESPINO MD, Ot J44 .9 CHRONIC OBSTRUCTIVE PULMONARY DISEASE, U 06/14/2019 MOHIT ESPINO MD, Ot L97.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 06/14/2019 MOHIT ESPINO MD, Ot L97.212 NON-PRESSURE CHRONIC ULCER OF RIGHT CALF 06/14/2019 MOHIT ESPINO MD Ot L97.222 NON-PRESSURE CHRONIC ULCER OF LEFT CALF 06/14/2019 MOHIT ESPINO MD, Ot T65.222S TOXIC EFFECT OF TOBACCO CIGARETTES, SELF 06/14/2019 MOHIT ESPINO MD, Ot T81.31XA DISRUPTION OF EXTERNAL OPERATION (SURGIC 06/14/2019 MOHIT ESPINO MD, Ot F17.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 DEPENDENCE, CIGARETTES, W OTH D 06/14/2019 MOHIT ESPINO MD, Ot J44 .9 CHRONIC OBSTRUCTIVE PULMONARY DISEASE, U 06/14/2019 MOHIT ESPINO MD, Ot L97.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 06/14/2019 MOHIT ESPINO MD, Ot L97.212 NON-PRESSURE CHRONIC ULCER OF RIGHT CALF 06/14/2019 MOHIT ESPINO MD, Ot L97.222 NON-PRESSURE CHRONIC ULCER OF LEFT CALF 06/14/2019 MOHIT ESPINO MD, Ot T65.222S TOXIC EFFECT OF TOBACCO CIGARETTES, SELF 06/14/2019 MOHIT ESPINO MD Ot T81.31XA DISRUPTION OF EXTERNAL OPERATION (SURGIC 06/14/2019 RICHARDSON SCHUMACHER MD Ot H74.9 3 UNSPECIFIED DISORDER OF MIDDLE EAR AND M 06/14/2019 RICHARDSON SCHUMACHER MD Ot H74.9 3 UNSPECIFIED DISORDER OF MIDDLE EAR AND M 06/17/2019 CHANDRIKA BURLESON MD Ot D64. 9 ANEMIA, UNSPECIFIED 06/17/2019 CHANDRIKA BURLESON MD Ot E78. 00 PURE HYPERCHOLESTEROLEMIA, UNSPECIFIED 06/17/2019 CHANDRIKA BURLESON MD Ot I10 ESSENTIAL (PRIMARY) HYPERTENSION 06/17/2019 CHANDRIKA BURLESON MD Ot I25. 10 ATHSCL HEART DISEASE OF [place] CORONARY 06/17/2019 CHANDRIKA BURLESON MD Ot I25. 2 OLD MYOCARDIAL INFARCTION 06/17/2019 CHANDRIKA BURLESON MD Ot J44. 9 CHRONIC OBSTRUCTIVE PULMONARY DISEASE, U 06/17/2019 CHANDRIKA BURLESON MD Ot M54. 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 01 PERSONAL HISTORY OF PNEUMONIA (RECURRENT 06/17/2019 CHANDRIKA BURLESON MD Ot Z87.891 PERSONAL HISTORY OF NICOTINE DEPENDENCE 06/17/2019 CHANDRIKA BURLESON MD Ot Z90.710 ACQUIRED ABSENCE OF BOTH CERVIX AND UTER 06/17/2019 CHANDRIKA BURLESON MD Ot Z95. 1 PRESENCE OF AORTOCORONARY BYPASS GRAFT 06/17/2019 CHANDRIKA BURLESON MD Ot Z98.890 OTHER SPECIFIED POSTPROCEDURAL STATES 06/18/2019 ANASTASIA TEJEDA MD, Ot M54. 2 CERVICALGIA 06/18/2019 ANASTASIA TEJEDA MD, Ot J18. 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 06/18/2019 PERLA GOLDEN APRN Ot F17.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, UNSPECIFIED, UNCOMP 06/18/2019 PERLA GOLDEN APRN Ot J18.9 PNEUMONIA, UNSPECIFIED ORGANISM 06/18/2019 PERLA GOLDEN APRN Ot J44.9 CHRONIC OBSTRUCTIVE PULMONARY DISEASE, U 06/18/2019 PERLA GOLDEN APRN Ot R06.00 DYSPNEA, UNSPECIFIED 06/18/2019 ALEE BRIGHT DO Ot M75.111 INCOMPLETE ROTATR-CUFF TEAR/RUPTR OF R S 06/18/2019 ALEE BRIGHT DO Ot M75.51 BURSITIS OF RIGHT SHOULDER 06/18/2019 MOHIT ESPINO MD Ot F17.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 DEPENDENCE, CIGARETTES, W OTH D 06/18/2019 MOHIT ESPINO MD Ot 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 UL 06/18/2019 MOHIT ESPINO MD Ot I70.242 ATHSCL [place] ARTERIES OF LEFT LEG W ULC 06/18/2019 MOHIT ESPINO MD, Ot J44 .9 CHRONIC OBSTRUCTIVE PULMONARY DISEASE, U 06/18/2019 MOHIT ESPINO MD, Ot L97.212 NON-PRESSURE CHRONIC ULCER OF RIGHT CALF 06/18/2019 MOHIT ESPINO MD, Ot L97.222 NON-PRESSURE CHRONIC ULCER OF LEFT CALF 06/18/2019 MOHIT ESPINO MD, Ot L97.223 NON-PRESSURE CHRONIC ULCER OF LEFT CALF 06/18/2019 MOHIT ESPINO MD, Ot T81.31XA DISRUPTION OF EXTERNAL OPERATION (SURGIC 06/18/2019 MOHIT ESPINO MD, Ot I70.202 UNSP ATHSCL [place] ARTERIES OF [facility] 06/18/2019 MOHIT ESPINO MD, Ot L97.223 NON-PRESSURE CHRONIC ULCER OF LEFT CALF 06/18/2019 MOHIT ESPINO MD, Ot F17.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 DEPENDENCE, CIGARETTES, W OTH D 06/18/2019 MOHIT ESPINO MD, Ot J44 .9 CHRONIC OBSTRUCTIVE PULMONARY DISEASE, U 06/18/2019 MOHIT ESPINO MD, Ot L97.212 NON-PRESSURE CHRONIC ULCER OF RIGHT CALF 06/18/2019 MOHIT ESPINO MD, Ot L97.222 NON-PRESSURE CHRONIC ULCER OF LEFT CALF 06/18/2019 MOHIT ESPINO MD, Ot L97.223 NON-PRESSURE CHRONIC ULCER OF LEFT CALF 06/18/2019 MOHIT ESPINO MD, Ot T65.222S TOXIC EFFECT OF TOBACCO CIGARETTES, SELF 06/18/2019 MOHIT ESPINO MD, Ot T81.31XA DISRUPTION OF EXTERNAL OPERATION (SURGIC 06/18/2019 MOHIT ESPINO MD, Ot F17.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 DEPENDENCE, CIGARETTES, W OTH D 06/18/2019 MOHIT ESPINO MD, Ot J44 .9 CHRONIC OBSTRUCTIVE PULMONARY DISEASE, U 06/18/2019 MOHIT ESPINO MD, Ot L97.212 NON-PRESSURE CHRONIC ULCER OF RIGHT CALF 06/18/2019 MOHIT ESPINO MD, Ot L97.222 NON-PRESSURE CHRONIC ULCER OF LEFT CALF 06/18/2019 MOHIT ESPINO MD, Ot T65.222S TOXIC EFFECT OF TOBACCO CIGARETTES, SELF 06/18/2019 MOHIT ESPINO MD, Ot T81.31XA DISRUPTION OF EXTERNAL OPERATION (SURGIC 06/18/2019 MOHIT ESPINO MD, Ot F17.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 DEPENDENCE, CIGARETTES, W OTH D 06/18/2019 MOHIT ESPINO MD, Ot J44 .9 CHRONIC OBSTRUCTIVE PULMONARY DISEASE, U 06/18/2019 MOHIT ESPINO MD, Ot L97.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 06/18/2019 MOHIT ESPINO MD, Ot L97.212 NON-PRESSURE CHRONIC ULCER OF RIGHT CALF 06/18/2019 MOHIT ESPINO MD, Ot L97.222 NON-PRESSURE CHRONIC ULCER OF LEFT CALF 06/18/2019 MOHIT ESPINO MD, Ot T65.222S TOXIC EFFECT OF TOBACCO CIGARETTES, SELF 06/18/2019 MOHIT ESPINO MD, Ot T81.31XA DISRUPTION OF EXTERNAL OPERATION (SURGIC 06/18/2019 MOHIT ESPINO MD, Ot F17.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 DEPENDENCE, CIGARETTES, W OTH D 06/18/2019 MOHIT ESPINO MD, Ot J44 .9 CHRONIC OBSTRUCTIVE PULMONARY DISEASE, U 06/18/2019 MOHIT ESPINO MD, Ot L97.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 06/18/2019 MOHIT ESPINO MD, Ot L97.212 NON-PRESSURE CHRONIC ULCER OF RIGHT CALF 06/18/2019 MOHIT ESPINO MD, Ot L97.222 NON-PRESSURE CHRONIC ULCER OF LEFT CALF 06/18/2019 MOHIT ESPINO MD, Ot T65.222S TOXIC EFFECT OF TOBACCO CIGARETTES, SELF 06/18/2019 MOHIT ESPINO MD, Ot T81.31XA DISRUPTION OF EXTERNAL OPERATION (SURGIC 06/18/2019 WINSOME RAYMOND, RICHARDSON Hood Ot H74.9 3 UNSPECIFIED DISORDER OF MIDDLE EAR AND M 06/18/2019 MOHIT ESPINO MD, Ot F17.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 DEPENDENCE, CIGARETTES, W OTH D 06/18/2019 MOHIT ESPINO MD, Ot J44 .9 CHRONIC OBSTRUCTIVE PULMONARY DISEASE, U 06/18/2019 MOHIT ESPINO MD, Ot L97.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 06/18/2019 MOHIT ESPINO MD, Ot L97.212 NON-PRESSURE CHRONIC ULCER OF RIGHT CALF 06/18/2019 MOHIT ESPINO MD, Ot L97.222 NON-PRESSURE CHRONIC ULCER OF LEFT CALF 06/18/2019 MOHIT ESPINO MD, Ot T65.222S TOXIC EFFECT OF TOBACCO CIGARETTES, SELF 06/18/2019 MOHIT ESPINO MD, Ot T81.31XA DISRUPTION OF EXTERNAL OPERATION (SURGIC 06/18/2019 MOHIT ESPINO MD, Ot F17.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 DEPENDENCE, CIGARETTES, W OTH D 06/18/2019 MOHIT ESPINO MD, Ot J44 .9 CHRONIC OBSTRUCTIVE PULMONARY DISEASE, U 06/18/2019 MOHIT ESPINO MD, Ot L97.212 NON-PRESSURE CHRONIC ULCER OF RIGHT CALF 06/18/2019 MOHIT ESPINO MD, Ot L97.222 NON-PRESSURE CHRONIC ULCER OF LEFT CALF 06/18/2019 MOHIT ESPINO MD, Ot T65.222S TOXIC EFFECT OF TOBACCO CIGARETTES, SELF 06/18/2019 MOHIT ESPINO MD, Ot T81.31XA DISRUPTION OF EXTERNAL OPERATION (SURGIC 06/18/2019 MOHIT ESPINO MD, Ot F17.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 DEPENDENCE, CIGARETTES, W OTH D 06/18/2019 MOHIT ESPINO MD, Ot J44 .9 CHRONIC OBSTRUCTIVE PULMONARY DISEASE, U 06/18/2019 MOHIT ESPINO MD, Ot L97.212 NON-PRESSURE CHRONIC ULCER OF RIGHT CALF 06/18/2019 MOHIT ESPINO MD, Ot L97.222 NON-PRESSURE CHRONIC ULCER OF LEFT CALF 06/18/2019 MOHIT ESPINO MD, Ot L97.223 NON-PRESSURE CHRONIC ULCER OF LEFT CALF 06/18/2019 MOHIT ESPINO MD, Ot T65.222S TOXIC EFFECT OF TOBACCO CIGARETTES, SELF 06/18/2019 MOHIT ESPINO MD, Ot T81.31XA DISRUPTION OF EXTERNAL OPERATION (SURGIC 06/18/2019 MOHIT ESPINO MD Ot I70.202 [facility]/18[facility] MOHIT ESPINO MD, Ot L97.223 NON-PRESSURE CHRONIC ULCER OF LEFT CALF 06/18/2019 MOHIT ESPINO MD, Ot L97.223 NON-PRESSURE CHRONIC ULCER OF LEFT CALF 06/18/2019 MOHIT ESPINO MD, Ot F17.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 DEPENDENCE, CIGARETTES, W OTH D 06/18/2019 MOHIT ESPINO MD Ot 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 UL 06/18/2019 MOHIT ESPINO MD, Ot I70.242 ATHSCL [place] ARTERIES OF LEFT LEG W ULC 06/18/2019 MOHIT ESPINO MD, Ot J44 .9 CHRONIC OBSTRUCTIVE PULMONARY DISEASE, U 06/18/2019 MOHIT ESPINO MD, Ot L97.212 NON-PRESSURE CHRONIC ULCER OF RIGHT CALF 06/18/2019 MOHIT ESPINO MD Ot L97.222 NON-PRESSURE CHRONIC ULCER OF LEFT CALF 06/18/2019 MOHIT ESPINO MD, Ot L97.223 NON-PRESSURE CHRONIC ULCER OF LEFT CALF 06/18/2019 MOHIT ESPINO MD Ot T81.31XA DISRUPTION OF EXTERNAL OPERATION (SURGIC 06/20/2019 NIKHIL RAYMOND, ANASTASIA Torres Ot J18. 9 PNEUMONIA, UNSPECIFIED ORGANISM 06/20/2019 LAUREN BAIRD Ot M48.06 SPINAL STENOSIS, LUMBAR REGION 06/20/2019 PERLA GOLDEN APRN Ot F17.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, UNSPECIFIED, UNCOMP 06/20/2019 PERLA GOLDEN APRN Ot J18.9 PNEUMONIA, UNSPECIFIED ORGANISM 06/20/2019 PERLA GOLDEN APRN Ot R06.00 DYSPNEA, UNSPECIFIED 06/20/2019 TIA ROLON ACUTE CARE PHYSICIAN Ot Z12.31 ENCNTR SCREEN MAMMOGRAM FOR MALIGNANT NE 06/20/2019 PERLA GOLDEN APRN Ot F17.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, UNSPECIFIED, UNCOMP 06/20/2019 PERLA GOLDEN APRN Ot J18.9 PNEUMONIA, UNSPECIFIED ORGANISM 06/20/2019 PERLA GOLDEN APRN Ot J44.9 CHRONIC OBSTRUCTIVE PULMONARY DISEASE, U 06/20/2019 PERLA GOLDEN APRN Ot R06.00 DYSPNEA, UNSPECIFIED 06/26/2019 MOHIT ESPINO MD Ot F17.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 DEPENDENCE, CIGARETTES, W OTH D 06/26/2019 MOHIT ESPINO MD, Ot J44 .9 CHRONIC OBSTRUCTIVE PULMONARY DISEASE, U 06/26/2019 MOHIT ESPINO MD Ot L97.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 06/26/2019 MOHIT ESPINO MD Ot L97.212 NON-PRESSURE CHRONIC ULCER OF RIGHT CALF 06/26/2019 MOHIT ESPINO MD, Ot L97.222 NON-PRESSURE CHRONIC ULCER OF LEFT CALF 06/26/2019 MOHIT ESPINO MD Ot T65.222S TOXIC EFFECT OF TOBACCO CIGARETTES, SELF 06/26/2019 MOHIT ESPINO MD, Ot T81.31XA DISRUPTION OF EXTERNAL OPERATION (SURGIC 06/26/2019 MOHIT ESPINO MD, Ot F17.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 DEPENDENCE, CIGARETTES, W OTH D 06/26/2019 MOHIT ESPINO MD, Ot J44 .9 CHRONIC OBSTRUCTIVE PULMONARY DISEASE, U 06/26/2019 MOHIT ESPINO MD, Ot L97.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 06/26/2019 MOHIT ESPINO MD, Ot L97.212 NON-PRESSURE CHRONIC ULCER OF RIGHT CALF 06/26/2019 MOHIT ESPINO MD, Ot L97.222 NON-PRESSURE CHRONIC ULCER OF LEFT CALF 06/26/2019 MOHIT ESPINO MD, Ot T65.222S TOXIC EFFECT OF TOBACCO CIGARETTES, SELF 06/26/2019 MOHIT ESPINO MD, Ot T81.31XA DISRUPTION OF EXTERNAL OPERATION (SURGIC 06/26/2019 MOHIT ESPINO MD, Ot F17.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 DEPENDENCE, CIGARETTES, W OTH D 06/26/2019 MOHIT ESPINO MD, Ot J44 .9 CHRONIC OBSTRUCTIVE PULMONARY DISEASE, U 06/26/2019 MOHIT ESPINO MD, Ot L97.212 NON-PRESSURE CHRONIC ULCER OF RIGHT CALF 06/26/2019 MOHIT ESPINO MD, Ot L97.222 NON-PRESSURE CHRONIC ULCER OF LEFT CALF 06/26/2019 MOHIT ESPINO MD, Ot T65.222S TOXIC EFFECT OF TOBACCO CIGARETTES, SELF 06/26/2019 MOHIT ESPINO MD, Ot T81.31XA DISRUPTION OF EXTERNAL OPERATION (SURGIC 06/26/2019 MOHIT ESPINO MD, Ot F17.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 DEPENDENCE, CIGARETTES, W OTH D 06/26/2019 MOHIT ESPINO MD, Ot J44 .9 CHRONIC OBSTRUCTIVE PULMONARY DISEASE, U 06/26/2019 MOHIT ESPINO MD, Ot L97.212 NON-PRESSURE CHRONIC ULCER OF RIGHT CALF 06/26/2019 MOHIT ESPINO MD, Ot L97.222 NON-PRESSURE CHRONIC ULCER OF LEFT CALF 06/26/2019 MOHIT ESPINO MD, Ot L97.223 NON-PRESSURE CHRONIC ULCER OF LEFT CALF 06/26/2019 MOHIT ESPINO MD, Ot T65.222S TOXIC EFFECT OF TOBACCO CIGARETTES, SELF 06/26/2019 MOHIT ESPINO MD, Ot T81.31XA DISRUPTION OF EXTERNAL OPERATION (SURGIC 06/26/2019 MOHIT ESPINO MD Ot I70.202 UNSP ATHSCL [place] ARTERIES OF [facility] 06/26/2019 MOHIT ESPINO MD, Ot L97.223 NON-PRESSURE CHRONIC ULCER OF LEFT CALF 06/26/2019 MOHIT ESPINO MD, Ot F17.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 DEPENDENCE, CIGARETTES, W OTH D 06/26/2019 MOHIT ESPINO MD, Ot 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 UL 06/26/2019 MOHIT ESPINO MD, Ot I70.242 ATHSCL [place] ARTERIES OF LEFT LEG W ULC 06/26/2019 MOHIT ESPINO MD, Ot J44 .9 CHRONIC OBSTRUCTIVE PULMONARY DISEASE, U 06/26/2019 MOHIT ESPINO MD, Ot L97.212 NON-PRESSURE CHRONIC ULCER OF RIGHT CALF 06/26/2019 MOHIT ESPINO MD, Ot L97.222 NON-PRESSURE CHRONIC ULCER OF LEFT CALF 06/26/2019 MOHIT ESPINO MD, Ot L97.223 NON-PRESSURE CHRONIC ULCER OF LEFT CALF 06/26/2019 MOHIT ESPINO MD, Ot T81.31XA DISRUPTION OF EXTERNAL OPERATION (SURGIC 06/27/2019 LAUREN BAIRD Ot M46.02 SPINAL ENTHESOPATHY, CERVICAL REGION 06/27/2019 LAUREN BAIRD Ot M48.02 SPINAL STENOSIS, CERVICAL REGION 06/27/2019 LAUREN BAIRD Ot M50.122 CERVICAL DISC DISORDER AT C5-C6 LEVEL [place] Procedures Code Description Performed By Per formed On [id number] RE SPIRATORY VENTILATION, LESS THAN 24 CO 10/17/2018 [id number] RE SPIRATORY VENTILATION, 24- 96 CONSECUTI 10/17/2018 Results Test Result Range Complete blood count (CBC) with automate d white blood cell (WBC) differential - 12/12/16 18:35 Blood leukocytes automated count (number/volume) 29.4 10*3/uL 4.3-11.0 Blood erythrocytes automated count (number/volume) 4.39 10*6/uL 4.35-5.85 Venous blood hemoglobin measurement (mass/volume) 13.5 g/dL 11.5-16.0 Blood hematocrit (volume fraction) 40 % 35-52 Automated erythrocyte mean corpuscular volume 92 [ foz_us] 80-99 Automated erythrocyte mean corpuscular h emoglobin (mass per erythrocyte) 31 pg 25-34 Automated erythrocyte mean corpuscular h emoglobin concentration measurement (mass/volume) 34 g/dL 32-36 Automated erythrocyte distribution width ratio 13. 0 % 10.0- 14.5 Automated blood platelet count (count/volume) 390 10*3/uL [...] 10*3 1.0-4.0 Blood monocytes automated count (number/volume) 1. 9 10*3 0.0-1.0 Automated eosinophil count 0.0 10*3/uL 0 .0-0.3 Automated blood basophil count (count/volume) 0.1 10*3/uL 0.0-0.1 Blood manual differential performed dete ction - 12/12/16 18:35 Blood monocytes/100 leukocytes 2 % NRG Manual blood segmented neutrophils/100 leukocytes 84 % NRG Blood band neutrophils/100 leukocytes 4 % NRG Manual blood lymphocytes/100 leukocytes 10 % NRG Manual eosinophils/100 leukocytes in nose 0 % NRG Manual blood basophils/100 leukocytes 0 % NRG Blood erythrocyte morphology finding identification NORMAL NRG Blood lactic acid measurement (moles/vol ume) - 12/12/16 18:35 Blood lactic acid measurement [...] 5-14 Serum or plasma urea nitrogen measurement (mass/volume ) 6 mg/dL 7-18 Serum or plasma creatinine measurement (mass/volume) 0.75 mg/dL 0.60-1.30 Serum or plasma urea nitrogen/creatinine mass ratio 8 NRG Serum or plasma creatinine measurement w ith calculation of estimated glomerular filtration rate > NRG Serum or plasma glucose measurement (mass/volume) 160 mg/dL 70-105 Serum or plasma calcium measurement (mass/volume) 9.9 mg/dL 8.5-10.1 Serum or plasma total bilirubin measurement (mass/volu me) 0.5 mg/dL 0.1-1.0 Serum or plasma alkaline phosphatase jenny surement (enzymatic activity/volume) 34 U/L 40-136 Serum or plasma aspartate aminotransfera se measurement (enzymatic activity/volume) 13 U/L 5-34 Serum or plasma alanine aminotransferase measurement (enzymatic activity/volume) 13 U/L 0-55 Serum or plasma protein measurement (mass/volume) 7.9 g/dL 6.4-8.2 Serum or plasma albumin measurement (mass/volume) 4.2 g/dL 3.2-4.5 Bacterial blood culture - 12/12/16 18:35 Bacterial blood culture NG NRG Bacterial blood culture - 12/12/16 18:58 Bacterial blood culture NG NRG Complete blood count (CBC) with automate d white blood cell (WBC) differential - 12/13/16 04:25 Blood leukocytes automated count (number/volume) 28.4 10*3/uL 4.3-11.0 Blood erythrocytes automated count (number/volume) 3.72 10*6/uL 4.35-5.85 Venous blood hemoglobin measurement (mass/volume) 11.3 g/dL 11.5-16.0 Blood hematocrit (volume fraction) 34 % 35-52 Automated erythrocyte mean corpuscular volume 91 [ foz_us] 80-99 Automated erythrocyte mean corpuscular h emoglobin (mass per erythrocyte) 30 pg 25-34 Automated erythrocyte mean corpuscular h emoglobin concentration measurement (mass/volume) 33 g/dL 32-36 Automated erythrocyte distribution width ratio 12. 7 % 10.0- 14.5 Automated blood platelet count (count/volume) 344 10*3/uL [...] 10*3 1.0-4.0 Blood monocytes automated count (number/volume) 1. 0 10*3 0.0-1.0 Automated eosinophil count 0.0 10*3/uL 0 .0-0.3 Automated blood basophil count (count/volume) 0.1 10*3/uL 0.0-0.1 Complete blood count (CBC) with automate d white blood cell (WBC) differential - 12/14/16 04:20 Blood leukocytes automated count (number/volume) 25.1 10*3/uL 4.3-11.0 Blood erythrocytes automated count (number/volume) 3.65 10*6/uL 4.35-5.85 Venous blood hemoglobin measurement (mass/volume) 11.1 g/dL 11.5-16.0 Blood hematocrit (volume fraction) 33 % 35-52 Automated erythrocyte mean corpuscular volume 91 [ foz_us] 80-99 Automated erythrocyte mean corpuscular h emoglobin (mass per erythrocyte) 30 pg 25-34 Automated erythrocyte mean corpuscular h emoglobin concentration measurement (mass/volume) 33 g/dL 32-36 Automated erythrocyte distribution width ratio 13. 0 % 10.0- 14.5 Automated blood platelet count (count/volume) 387 10*3/uL [...] 10*3 1.0-4.0 Blood monocytes automated count (number/volume) 0. 6 10*3 0.0-1.0 Automated eosinophil count 0.0 10*3/uL 0 .0-0.3 Automated blood basophil count (count/volume) 0.0 10*3/uL 0.0-0.1 Complete blood count (CBC) with automate d white blood cell (WBC) differential - 12/15/16 08:25 Blood leukocytes automated count (number/volume) 19.2 10*3/uL 4.3-11.0 Blood erythrocytes automated count (number/volume) 3.63 10*6/uL 4.35-5.85 Venous blood hemoglobin measurement (mass/volume) 11.1 g/dL 11.5-16.0 Blood hematocrit (volume fraction) 34 % 35-52 Automated erythrocyte mean corpuscular volume 93 [ foz_us] 80-99 Automated erythrocyte mean corpuscular h emoglobin (mass per erythrocyte) 31 pg 25-34 Automated erythrocyte mean corpuscular h emoglobin concentration measurement (mass/volume) 33 g/dL 32-36 Automated erythrocyte distribution width ratio 13. 4 % 10.0- 14.5 Automated blood platelet count (count/volume) 389 10*3/uL [...] 10*3 1.0-4.0 Blood monocytes automated count (number/volume) 0. 8 10*3 0.0-1.0 Automated eosinophil count 0.1 10*3/uL 0 .0-0.3 Automated blood basophil count (count/volume) 0.2 10*3/uL 0.0-0.1 Complete blood count (CBC) with automate d white blood cell (WBC) differential - 05/19/17 01:39 Blood leukocytes automated count (number/volume) 19.8 10*3/uL 4.3-11.0 Blood erythrocytes automated count (number/volume) 4.30 10*6/uL 4.35-5.85 Venous blood hemoglobin measurement (mass/volume) 13.2 g/dL 11.5-16.0 Blood hematocrit (volume fraction) 39 % 35-52 Automated erythrocyte mean corpuscular volume 91 [ foz_us] 80-99 Automated erythrocyte mean corpuscular h emoglobin (mass per erythrocyte) 31 pg 25-34 Automated erythrocyte mean corpuscular h emoglobin concentration measurement (mass/volume) 34 g/dL 32-36 Automated erythrocyte distribution width ratio 12. 9 % 10.0- 14.5 Automated blood platelet count (count/volume) 406 10*3/uL [...] 10*3 1.0-4.0 Blood monocytes automated count (number/volume) 1. 5 10*3 0.0-1.0 Automated eosinophil count 0.4 10*3/uL 0 .0-0.3 Automated blood basophil count (count/volume) 0.1 10*3/uL 0.0-0.1 PT panel in platelet poor plasma by coag ulation assay - 05/19/17 01:39 Prothrombin time (PT) in platelet poor plasma by coagu lation assay 12.7 s 12.2-14.7 INR in platelet poor plasma or blood by coagulation as say 0.9 0.8-1.4 Activated partial thromboplastin time (a PTT) in platelet poor plasma bycoagulation assay - 05/19/17 01:39 Activated partial thromboplastin time (a PTT) in platelet poor plasma bycoagulation assay 33 s 24-35 Comprehensive metabolic panel - 05/19/17 01:39 Serum or plasma sodium measurement (moles/volume) 139 mmol/L 135-145 Serum or plasma potassium measurement (moles/volume) 3.8 mmol/L 3.6-5.0 Serum or plasma chloride measurement (moles/volume) 107 mmol/L 98-107 Carbon dioxide 19 mmol/L 21-32 Serum or plasma anion gap determination (moles/volume) 13 mmol/L 5-14 Serum or plasma urea nitrogen measurement (mass/volume ) 13 mg/dL 7-18 Serum or plasma creatinine measurement (mass/volume) 0.87 mg/dL 0.60-1.30 Serum or plasma urea nitrogen/creatinine mass ratio 15 NRG Serum or plasma creatinine measurement w ith calculation of estimated glomerular filtration rate > NRG Serum or plasma glucose measurement (mass/volume) 127 mg/dL 70-105 Serum or plasma calcium measurement (mass/volume) 10.1 mg/dL 8.5-10.1 Serum or plasma total bilirubin measurement (mass/volu me) 0.4 mg/dL 0.1-1.0 Serum or plasma alkaline phosphatase jenny surement (enzymatic activity/volume) 35 U/L 40-136 Serum or plasma aspartate aminotransfera se measurement (enzymatic activity/volume) 17 U/L 5-34 Serum or plasma alanine aminotransferase measurement (enzymatic activity/volume) 14 U/L 0-55 Serum or plasma protein measurement (mass/volume) 7.9 g/dL 6.4-8.2 Serum or plasma albumin measurement (mass/volume) 4.1 g/dL 3.2-4.5 Magnesium - 05/19/17 01:39 Magnesium 1.9 mg/dL 1.8-2.4 Serum or plasma troponin i.cardiac measu rement (mass/volume) - 05/19/17 01:39 Serum or plasma troponin i.cardiac measurement (mass/v olume) < ng/mL <0.30 Blood manual differential performed dete ction - 05/19/17 01:39 Blood monocytes/100 leukocytes 6 % NRG Manual blood segmented neutrophils/100 leukocytes 75 % NRG Blood band neutrophils/100 leukocytes 1 % NRG Manual blood lymphocytes/100 leukocytes 16 % NRG Manual eosinophils/100 leukocytes in nose 2 % NRG Blood erythrocyte morphology finding identification NORMAL NRG Blood lactic acid measurement (moles/vol ume) - 05/19/17 01:50 Blood lactic acid measurement (moles/volume) 0.79 mmol/L 0.50-2.00 Bacterial blood culture - 05/19/17 01:50 QUANTITY OF GROWTH Isolated NRG Bacterial blood culture [id number] NRG Bacterial blood culture - 05/19/17 02:05 Bacterial blood culture NG NRG Complete urinalysis with reflex to cultu re - 05/19/17 02:45 Urine color determination SINDHU NRG Urine clarity determination CLEAR NR G Urine pH measurement by test strip 6 5-9 Specific gravity of urine by test strip 1.020 1.016-1.022 Urine protein assay by test strip, semi-quantitative 2+ NEGATIVE Urine glucose detection by automated test strip NE GATIVE NEGATIVE Erythrocytes detection in urine sediment by light micr oscopy NEGATIVE NEGATIVE Urine ketones detection by automated test strip NE GATIVE NEGATIVE Urine nitrite detection by test strip NEGATIVE NEGATIVE Urine total bilirubin detection by test strip NEGA TIVE NEGATIVE Urine urobilinogen measurement by automated test strip (mass/volume) NORMAL NORMAL Urine leukocyte esterase detection by dipstick 1+ NEGATIVE Automated urine sediment erythrocyte cou nt by microscopy (number/high power field) NONE NRG Automated urine sediment leukocyte count by microscopy (number/high power field) RARE NRG Bacteria detection in urine sediment by light microsco py NEGATIVE NRG Squamous epithelial cells detection in u rine sediment by light microscopy RARE NRG Crystals detection in urine sediment by light microsco py NONE NRG Casts detection in urine sediment by light microscopy PRESENT NRG Mucus detection in urine sediment by light microscopy NEGATIVE NRG Complete urinalysis with reflex to culture NO NRG Hyaline casts detection in urine sediment by light marcy roscopy 0-2 NRG Urine drug screening test - 05/19/17 02: 45 Urine phencyclidine detection by screening method NEGATIVE NEGATIVE Urine benzodiazepines detection by screening method NEGATIVE NEGATIVE Urine cocaine detection NEGATIVE NEGATI VE Urine amphetamines detection by screening method N EGATIVE NEGATIVE Urine methamphetamine detection by screening method NEGATIVE NEGATIVE Urine cannabinoids detection by screening method N EGATIVE NEGATIVE Urine opiates detection by screening method POSITI VE NEGATIVE Urine barbiturates detection NEGATIVE N EGATIVE Screening urine tricyclic antidepressants detection NEGATIVE NEGATIVE Urine methadone detection by screening method NEGA TIVE NEGATIVE Urine oxycodone detection POSITIVE NEGA TIVE Urine propoxyphene detection NEGATIVE N EGATIVE Arterial blood gas measurement - 7 03:54 Blood pCO2 55 mm[Hg] 35-45 Blood pO2 72 mm[Hg] 79-93 Arterial blood bicarbonate measurement (moles/volume) 20 mmol/L 23-27 Arterial blood base excess by calculation -6.6 mmo l/L -2.5-2.5 Arterial blood oxygen saturation measurement 93 % 94-100 * Inhaled oxygen flow rate 2L NRG Arterial blood pH measurement with patient temperature correction 7.19 7.37-7.43 Arterial blood carbon dioxide, total measurement (mole s/volume) 22.0 mmol/L 21.0-31.0 Body site RIGHT RADIAL NRG Assessment of wrist artery patency prior to arterial p uncture YES-POS NRG Setting of ventilation mode NO NR G Measurement of body temperature 98.2 NRG Arterial blood gas measurement - 7 05:02 Blood pCO2 49 mm[Hg] 35-45 Blood pO2 102 mm[Hg] 79-93 Arterial blood bicarbonate measurement (moles/volume) 20 mmol/L 23-27 Arterial blood base excess by calculation -6.6 mmo l/L -2.5-2.5 Arterial blood oxygen saturation measurement 98 % 94-100 * Inhaled oxygen flow rate 36% NRG Arterial blood pH measurement with patient temperature correction 7.23 7.37-7.43 Arterial blood carbon dioxide, total measurement (mole s/volume) 21.5 mmol/L 21.0-31.0 Body site LEFT RADIAL NRG Assessment of wrist artery patency prior to arterial p uncture YES-POS NRG Setting of ventilation mode NO NR G Measurement of body temperature 97.1 NRG Complete blood count (CBC) with automate d white blood cell (WBC) differential - 05/19/17 06:29 Blood leukocytes automated count (number/volume) 21.6 10*3/uL 4.3-11.0 Blood erythrocytes automated count (number/volume) 3.88 10*6/uL 4.35-5.85 Venous blood hemoglobin measurement (mass/volume) 12.0 g/dL 11.5-16.0 Blood hematocrit (volume fraction) 36 % 35-52 Automated erythrocyte mean corpuscular volume 93 [ foz_us] 80-99 Automated erythrocyte mean corpuscular h emoglobin (mass per erythrocyte) 31 pg 25-34 Automated erythrocyte mean corpuscular h emoglobin concentration measurement (mass/volume) 33 g/dL 32-36 Automated erythrocyte distribution width ratio 13. 1 % 10.0- 14.5 Automated blood platelet count (count/volume) 322 10*3/uL [...] 10*3 1.0-4.0 Blood monocytes automated count (number/volume) 0. 3 10*3 0.0-1.0 Automated eosinophil count 0.0 10*3/uL 0 .0-0.3 Automated blood basophil count (count/volume) 0.0 10*3/uL 0.0-0.1 Whole blood basic metabolic panel - 01/28 06:29 Serum or plasma sodium measurement (moles/volume) 138 mmol/L 135-145 Serum or plasma potassium measurement (moles/volume) 4.2 mmol/L 3.6-5.0 Serum or plasma chloride measurement (moles/volume) 111 mmol/L 98-107 Carbon dioxide 18 mmol/L 21-32 Serum or plasma anion gap determination (moles/volume) 9 mmol/L 5-14 Serum or plasma urea nitrogen measurement (mass/volume ) 12 mg/dL 7-18 Serum or plasma creatinine measurement (mass/volume) 0.73 mg/dL 0.60-1.30 Serum or plasma urea nitrogen/creatinine mass ratio 16 NRG Serum or plasma creatinine measurement w ith calculation of estimated glomerular filtration rate > NRG Serum or plasma glucose measurement (mass/volume) 197 mg/dL 70-105 Serum or plasma calcium measurement (mass/volume) 8.7 mg/dL 8.5-10.1 Arterial blood gas measurement - 7 08:05 Blood pCO2 52 mm[Hg] 35-45 Blood pO2 95 mm[Hg] 79-93 Arterial blood bicarbonate measurement (moles/volume) 20 mmol/L 23-27 Arterial blood base excess by calculation -6.3 mmo l/L -2.5-2.5 Arterial blood oxygen saturation measurement 97 % 94-100 * Inhaled oxygen flow rate 36% BIPAP NR G Arterial blood pH measurement with patient temperature correction 7.22 7.37-7.43 Arterial blood carbon dioxide, total measurement (mole s/volume) 21.9 mmol/L 21.0-31.0 Body site LEFT BRAC NRG Assessment of wrist artery patency prior to arterial p uncture YES-POS NRG Setting of ventilation mode NO NR G Measurement of body temperature 97.9 NRG Arterial blood gas measurement - 7 13:20 Blood pCO2 43 mm[Hg] 35-45 Blood pO2 115 mm[Hg] 79-93 Arterial blood bicarbonate measurement (moles/volume) 19 mmol/L 23-27 Arterial blood base excess by calculation -6.7 mmo l/L -2.5-2.5 Arterial blood oxygen saturation measurement 99 % 94-100 * Inhaled oxygen flow rate 28% NRG Arterial blood pH measurement with patient temperature correction 7.27 7.37-7.43 Arterial blood carbon dioxide, total measurement (mole s/volume) 20.3 mmol/L 21.0-31.0 Body site R RAD NRG Assessment of wrist artery patency prior to arterial p uncture YES-POS NRG Setting of ventilation mode NO NR G Measurement of body temperature 97.9 NRG Influenza virus A and B antigen detectio n - 08/05/18 01:09 FLU RESULT NEGATIVE FOR INFLUENZA A AND B ANTIGENS BY IA NRG Complete urinalysis with reflex to cultu re - 08/05/18 01:30 Urine color determination YELLOW NRG Urine clarity determination CLEAR NR G Urine pH measurement by test strip 6.5 5-9 Specific gravity of urine by test strip 1.010 1.016-1.022 Urine protein assay by test strip, semi-quantitative NEGATIVE NEGATIVE Urine glucose detection by automated test strip NE GATIVE NEGATIVE Erythrocytes detection in urine sediment by light micr oscopy NEGATIVE NEGATIVE Urine ketones detection by automated test strip NE GATIVE NEGATIVE Urine nitrite detection by test strip NEGATIVE NEGATIVE Urine total bilirubin detection by test strip NEGA TIVE NEGATIVE Urine urobilinogen measurement by automated test strip (mass/volume) NORMAL NORMAL Urine leukocyte esterase detection by dipstick NEG ATIVE NEGATIVE Automated urine sediment erythrocyte cou nt by microscopy (number/high power field) NONE NRG Automated urine sediment leukocyte count by microscopy (number/high power field) NONE NRG Bacteria detection in urine sediment by light microsco py TRACE NRG Squamous epithelial cells detection in u rine sediment by light microscopy 2-5 NRG Crystals detection in urine sediment by light microsco py NONE NRG Casts detection in urine sediment by light microscopy NONE NRG Mucus detection in urine sediment by light microscopy NEGATIVE NRG Complete urinalysis with reflex to culture NO NRG Urine drug screening test - 08/05/18 01: 30 Urine phencyclidine detection by screening method NEGATIVE NEGATIVE Urine benzodiazepines detection by screening method NEGATIVE NEGATIVE Urine cocaine detection NEGATIVE NEGATI VE Urine amphetamines detection by screening method N EGATIVE NEGATIVE Urine methamphetamine detection by screening method NEGATIVE NEGATIVE Urine cannabinoids detection by screening method N EGATIVE NEGATIVE Urine opiates detection by screening method NEGATI VE NEGATIVE Urine barbiturates detection NEGATIVE N EGATIVE Screening urine tricyclic antidepressants detection NEGATIVE NEGATIVE Urine methadone detection by screening method NEGA TIVE NEGATIVE Urine oxycodone detection POSITIVE NEGA TIVE Urine propoxyphene detection NEGATIVE N EGATIVE Complete blood count (CBC) with automate d white blood cell (WBC) differential - 08/05/18 01:48 Blood leukocytes automated count (number/volume) 18.7 10*3/uL 4.3-11.0 Blood erythrocytes automated count (number/volume) 2.94 10*6/uL 4.35-5.85 Venous blood hemoglobin measurement (mass/volume) 9.0 g/dL 11.5-16.0 Blood hematocrit (volume fraction) 27 % 35-52 Automated erythrocyte mean corpuscular volume 93 [ foz_us] 80-99 Automated erythrocyte mean corpuscular h emoglobin (mass per erythrocyte) 31 pg 25-34 Automated erythrocyte mean corpuscular h emoglobin concentration measurement (mass/volume) 33 g/dL 32-36 Automated erythrocyte distribution width ratio 14. 6 % 10.0- 14.5 Automated blood platelet count (count/volume) 472 10*3/uL 130-400 Automated blood platelet mean volume measurement 9.5 [foz_us] 7.4-10.4 Automated blood neutrophils/100 leukocytes 72 % 42-75 Automated blood lymphocytes/100 leukocytes 13 % 12-44 Blood monocytes/100 leukocytes 9 % 0-12 Automated blood eosinophils/100 leukocytes 5 % 0-10 Automated blood basophils/100 leukocytes 1 % 0-10 Blood neutrophils automated count (number/volume) 13.4 10*3 1.8-7.8 Blood lymphocytes automated count (number/volume) 2.5 10*3 1.0-4.0 Blood monocytes automated count (number/volume) 1. 7 10*3 0.0-1.0 Automated eosinophil count 1.0 10*3/uL 0 .0-0.3 Automated blood basophil count (count/volume) 0.1 10*3/uL 0.0-0.1 Blood manual differential performed dete ction - 08/05/18 01:48 Blood monocytes/100 leukocytes 3 % NRG Manual blood segmented neutrophils/100 leukocytes 77 % NRG Blood band neutrophils/100 leukocytes 3 % NRG Manual blood lymphocytes/100 leukocytes 10 % NRG Manual eosinophils/100 leukocytes in nose 4 % NRG Manual blood basophils/100 leukocytes 0 % NRG Blood lymphocytes variant/100 leukocytes 1 % NRG Blood polychromasia detection by light microscopy SLIGHT NRG Blood anisocytosis detection by light microscopy S LIGHT NRG Manual blood metamyelocytes/100 leukocytes 2 % NRG PT panel in platelet poor plasma by coag ulation assay - 08/05/18 01:48 Prothrombin time (PT) in platelet poor plasma by coagu lation assay 13.5 s 12.2-14.7 INR in platelet poor plasma or blood by coagulation as say 1.0 0.8-1.4 Activated partial thromboplastin time (a PTT) in platelet poor plasma bycoagulation assay - 08/05/18 01:48 Activated partial thromboplastin time (a PTT) in platelet poor plasma bycoagulation assay 38 s 24-35 Comprehensive metabolic panel - 08/05/18 01:48 Serum or plasma sodium measurement (moles/volume) 136 mmol/L 135-145 Serum or plasma potassium measurement (moles/volume) 4.1 mmol/L 3.6-5.0 Serum or plasma chloride measurement (moles/volume) 99 mmol/L 98-107 Carbon dioxide 21 mmol/L 21-32 Serum or plasma anion gap determination (moles/volume) 16 mmol/L 5-14 Serum or plasma urea nitrogen measurement (mass/volume ) 14 mg/dL 7-18 Serum or plasma creatinine measurement (mass/volume) 0.76 mg/dL 0.60-1.30 Serum or plasma urea nitrogen/creatinine mass ratio 18 NRG Serum or plasma creatinine measurement w ith calculation of estimated glomerular filtration rate > NRG Serum or plasma glucose measurement (mass/volume) 130 mg/dL 70-105 Serum or plasma calcium measurement (mass/volume) 9.7 mg/dL 8.5-10.1 Serum or plasma total bilirubin measurement (mass/volu me) 1.5 mg/dL 0.1-1.0 Serum or plasma alkaline phosphatase jenny surement (enzymatic activity/volume) 21 U/L 40-136 Serum or plasma aspartate aminotransfera se measurement (enzymatic activity/volume) 31 U/L 5-34 Serum or plasma alanine aminotransferase measurement (enzymatic activity/volume) 15 U/L 0-55 Serum or plasma protein measurement (mass/volume) 7.0 g/dL 6.4-8.2 Serum or plasma albumin measurement (mass/volume) 4.5 g/dL 3.2-4.5 CALCIUM CORRECTED 9.3 mg/dL 8.5-10.1 Serum or plasma troponin i.cardiac measu rement (mass/volume) - 08/05/18 01:48 Serum or plasma troponin i.cardiac measurement (mass/v olume) < ng/mL <0.30 Myoglobin, serum - 08/05/18 01:48 Myoglobin, serum 170.4 ng/mL 10.0-92.0 Serum or plasma lithium measurement (mol es/volume) - 08/05/18 01:48 BNP level 543.0 pg/mL <100.0 Serum or plasma C reactive protein measu rement (mass/volume) - 08/05/18 01:48 Serum or plasma C reactive protein measurement (mass/v olume) 12.76 mg/dL 0.00-0.50 Blood lactic acid measurement (moles/vol ume) - 08/05/18 02:45 Blood lactic acid measurement (moles/volume) 1.18 mmol/L 0.50-2.00 Bacterial blood culture - 08/05/18 02:45 Bacterial blood culture NG NRG Bacterial blood culture - 08/05/18 02:50 Bacterial blood culture NG NRG Complete blood count (CBC) with automate d white blood cell (WBC) differential - 08/06/18 05:36 Blood leukocytes automated count (number/volume) 18.0 10*3/uL 4.3-11.0 Blood erythrocytes automated count (number/volume) 2.75 10*6/uL 4.35-5.85 Venous blood hemoglobin measurement (mass/volume) 8.5 g/dL 11.5-16.0 Blood hematocrit (volume fraction) 27 % 35-52 Automated erythrocyte mean corpuscular volume 97 [ foz_us] 80-99 Automated erythrocyte mean corpuscular h emoglobin (mass per erythrocyte) 31 pg 25-34 Automated erythrocyte mean corpuscular h emoglobin concentration measurement (mass/volume) 32 g/dL 32-36 Automated erythrocyte distribution width ratio 14. 9 % 10.0- 14.5 Automated blood platelet count (count/volume) 481 10*3/uL 130-400 Automated blood platelet mean volume measurement 9.7 [foz_us] 7.4-10.4 Automated blood neutrophils/100 leukocytes 75 % 42-75 Automated blood lymphocytes/100 leukocytes 12 % 12-44 Blood monocytes/100 leukocytes 7 % 0-12 Automated blood eosinophils/100 leukocytes 6 % 0-10 Automated blood basophils/100 leukocytes 0 % 0-10 Blood neutrophils automated count (number/volume) 13.5 10*3 1.8-7.8 Blood lymphocytes automated count (number/volume) 2.1 10*3 1.0-4.0 Blood monocytes automated count (number/volume) 1. 3 10*3 0.0-1.0 Automated eosinophil count 1.2 10*3/uL 0 .0-0.3 Automated blood basophil count (count/volume) 0.0 10*3/uL 0.0-0.1 Whole blood basic metabolic panel - 07/15 11/29 05:36 Serum or plasma sodium measurement (moles/volume) 137 mmol/L 135-145 Serum or plasma potassium measurement (moles/volume) 4.6 mmol/L 3.6-5.0 Serum or plasma chloride measurement (moles/volume) 108 mmol/L 98-107 Carbon dioxide 21 mmol/L 21-32 Serum or plasma anion gap determination (moles/volume) 8 mmol/L 5-14 Serum or plasma urea nitrogen measurement (mass/volume ) 13 mg/dL 7-18 Serum or plasma creatinine measurement (mass/volume) 0.68 mg/dL 0.60-1.30 Serum or plasma urea nitrogen/creatinine mass ratio 19 NRG Serum or plasma creatinine measurement w ith calculation of estimated glomerular filtration rate > NRG Serum or plasma glucose measurement (mass/volume) 115 mg/dL 70-105 Serum or plasma calcium measurement (mass/volume) 8.6 mg/dL 8.5-10.1 Complete blood count (CBC) with automate d white blood cell (WBC) differential - 08/07/18 03:20 Blood leukocytes automated count (number/volume) 21.7 10*3/uL 4.3-11.0 Blood erythrocytes automated count (number/volume) 2.90 10*6/uL 4.35-5.85 Venous blood hemoglobin measurement (mass/volume) 9.2 g/dL 11.5-16.0 Blood hematocrit (volume fraction) 28 % 35-52 Automated erythrocyte mean corpuscular volume 97 [ foz_us] 80-99 Automated erythrocyte mean corpuscular h emoglobin (mass per erythrocyte) 32 pg 25-34 Automated erythrocyte mean corpuscular h emoglobin concentration measurement (mass/volume) 33 g/dL 32-36 Automated erythrocyte distribution width ratio 16. 3 % 10.0- 14.5 Automated blood platelet count (count/volume) 585 10*3/uL 130-400 Automated blood platelet mean volume measurement 9.2 [foz_us] 7.4-10.4 Automated blood neutrophils/100 leukocytes 78 % 42-75 Automated blood lymphocytes/100 leukocytes 11 % 12-44 Blood monocytes/100 leukocytes 7 % 0-12 Automated blood eosinophils/100 leukocytes 3 % 0-10 Automated blood basophils/100 leukocytes 0 % 0-10 Blood neutrophils automated count (number/volume) 17.0 10*3 1.8-7.8 Blood lymphocytes automated count (number/volume) 2.5 10*3 1.0-4.0 Blood monocytes automated count (number/volume) 1. 5 10*3 0.0-1.0 Automated eosinophil count 0.7 10*3/uL 0 .0-0.3 Automated blood basophil count (count/volume) 0.1 10*3/uL 0.0-0.1 PT panel in platelet poor plasma by coag ulation assay - 08/07/18 03:20 Prothrombin time (PT) in platelet poor plasma by coagu lation assay 13.8 s 12.2-14.7 INR in platelet poor plasma or blood by coagulation as say 1.1 0.8-1.4 Activated partial thromboplastin time (a PTT) in platelet poor plasma bycoagulation assay - 08/07/18 03:20 Activated partial thromboplastin time (a PTT) in platelet poor plasma bycoagulation assay 38 s 24-35 Blood manual differential performed dete ction - 08/07/18 03:20 Blood monocytes/100 leukocytes 2 % NRG Manual blood segmented neutrophils/100 leukocytes 81 % NRG Blood band neutrophils/100 leukocytes 4 % NRG Manual blood lymphocytes/100 leukocytes 11 % NRG Manual eosinophils/100 leukocytes in nose 2 % NRG Blood polychromasia detection by light microscopy SLIGHT NRG Blood anisocytosis detection by light microscopy M ODERATE NRG Blood macrocytes detection by light microscopy MOD ERATE NRG Blood hypochromia detection by light microscopy SL IGHT NRG Blood stomatocytes detection by light microscopy S LIGHT NRG Comprehensive metabolic panel - 08/07/18 03:20 Serum or plasma sodium measurement (moles/volume) 134 mmol/L 135-145 Serum or plasma potassium measurement (moles/volume) 4.7 mmol/L 3.6-5.0 Serum or plasma chloride measurement (moles/volume) 102 mmol/L 98-107 Carbon dioxide 18 mmol/L 21-32 Serum or plasma anion gap determination (moles/volume) 14 mmol/L 5-14 Serum or plasma urea nitrogen measurement (mass/volume ) 15 mg/dL 7-18 Serum or plasma creatinine measurement (mass/volume) 0.77 mg/dL 0.60-1.30 Serum or plasma urea nitrogen/creatinine mass ratio 19 NRG Serum or plasma creatinine measurement w ith calculation of estimated glomerular filtration rate > NRG Serum or plasma glucose measurement (mass/volume) 146 mg/dL 70-105 Serum or plasma calcium measurement (mass/volume) 9.0 mg/dL 8.5-10.1 Serum or plasma total bilirubin measurement (mass/volu me) 1.2 mg/dL 0.1-1.0 Serum or plasma alkaline phosphatase jenny surement (enzymatic activity/volume) 28 U/L 40-136 Serum or plasma aspartate aminotransfera se measurement (enzymatic activity/volume) 31 U/L 5-34 Serum or plasma alanine aminotransferase measurement (enzymatic activity/volume) 15 U/L 0-55 Serum or plasma protein measurement (mass/volume) 6.8 g/dL 6.4-8.2 Serum or plasma albumin measurement (mass/volume) 4.2 g/dL 3.2-4.5 CALCIUM CORRECTED 8.8 mg/dL 8.5-10.1 Magnesium - 08/07/18 03:20 Magnesium 2.9 mg/dL 1.8-2.4 Serum or plasma lithium measurement (mol es/volume) - 08/07/18 03:20 BNP level 1406.6 pg/mL <100.0 Serum or plasma troponin i.cardiac measu rement (mass/volume) - 08/07/18 03:20 Serum or plasma troponin i.cardiac measurement (mass/v olume) < ng/mL <0.30 Influenza virus A and B antigen detectio n - 08/07/18 03:31 FLU RESULT NEGATIVE FOR INFLUENZA A AND B ANTIGENS BY IA NRG Capillary blood glucose measurement by g lucometer (mass/volume) - 08/07/18 03:36 Capillary blood glucose measurement by glucometer (mas s/volume) 168 mg/dL 70-110 Bacterial blood culture - 08/07/18 04:15 Bacterial blood culture NG NRG Sputum Gram stain - 08/07/18 04:20 Sputum Gram stain No bacteria seen NRG Bacterial sputum culture - 08/07/18 04:2 0 FREE TEXT EXTERNAL SMALL AMOUNT NRG QUANTITY OF GROWTH . NRG Bacterial sputum culture USUAL RESP NRG Bacterial blood culture - 08/07/18 04:23 Bacterial blood culture NG NRG Complete urinalysis with reflex to cultu re - 08/07/18 04:38 Urine color determination YELLOW NRG Urine clarity determination CLEAR NR G Urine pH measurement by test strip 6.5 5-9 Specific gravity of urine by test strip 1.005 1.016-1.022 Urine protein assay by test strip, semi-quantitative NEGATIVE NEGATIVE Urine glucose detection by automated test strip NE GATIVE NEGATIVE Erythrocytes detection in urine sediment by light micr oscopy NEGATIVE NEGATIVE Urine ketones detection by automated test strip NE GATIVE NEGATIVE Urine nitrite detection by test strip NEGATIVE NEGATIVE Urine total bilirubin detection by test strip NEGA TIVE NEGATIVE Urine urobilinogen measurement by automated test strip (mass/volume) NORMAL NORMAL Urine leukocyte esterase detection by dipstick NEG ATIVE NEGATIVE Automated urine sediment erythrocyte cou nt by microscopy (number/high power field) NONE NRG Automated urine sediment leukocyte count by microscopy (number/high power field) NONE NRG Bacteria detection in urine sediment by light microsco py TRACE NRG Squamous epithelial cells detection in u rine sediment by light microscopy RARE NRG Crystals detection in urine sediment by light microsco py NONE NRG Casts detection in urine sediment by light microscopy PRESENT NRG Mucus detection in urine sediment by light microscopy NEGATIVE NRG Complete urinalysis with reflex to culture NO NRG Hyaline casts detection in urine sediment by light marcy roscopy RARE NRG Complete blood count (CBC) with automate d white blood cell (WBC) differential - 08/08/18 03:15 Blood leukocytes automated count (number/volume) 23.7 10*3/uL 4.3-11.0 Blood erythrocytes automated count (number/volume) 2.72 10*6/uL 4.35-5.85 Venous blood hemoglobin measurement (mass/volume) 8.5 g/dL 11.5-16.0 Blood hematocrit (volume fraction) 27 % 35-52 Automated erythrocyte mean corpuscular volume 98 [ foz_us] 80-99 Automated erythrocyte mean corpuscular h emoglobin (mass per erythrocyte) 31 pg 25-34 Automated erythrocyte mean corpuscular h emoglobin concentration measurement (mass/volume) 32 g/dL 32-36 Automated erythrocyte distribution width ratio 16. 7 % 10.0- 14.5 Automated blood platelet count (count/volume) 573 10*3/uL 130-400 Automated blood platelet mean volume measurement 9.4 [foz_us] 7.4-10.4 Automated blood neutrophils/100 leukocytes 91 % 42-75 Automated blood lymphocytes/100 leukocytes 6 % 12-44 Blood monocytes/100 leukocytes 3 % 0-12 Automated blood eosinophils/100 leukocytes 0 % 0-10 Automated blood basophils/100 leukocytes 0 % 0-10 Blood neutrophils automated count (number/volume) 21.6 10*3 1.8-7.8 Blood lymphocytes automated count (number/volume) 1.3 10*3 1.0-4.0 Blood monocytes automated count (number/volume) 0. 6 10*3 0.0-1.0 Automated eosinophil count 0.1 10*3/uL 0 .0-0.3 Automated blood basophil count (count/volume) 0.0 10*3/uL 0.0-0.1 Comprehensive metabolic panel - 08/08/18 03:15 Serum or plasma sodium measurement (moles/volume) 138 mmol/L 135-145 Serum or plasma potassium measurement (moles/volume) 4.0 mmol/L 3.6-5.0 Serum or plasma chloride measurement (moles/volume) 101 mmol/L 98-107 Carbon dioxide 24 mmol/L 21-32 Serum or plasma anion gap determination (moles/volume) 13 mmol/L 5-14 Serum or plasma urea nitrogen measurement (mass/volume ) 18 mg/dL 7-18 Serum or plasma creatinine measurement (mass/volume) 0.82 mg/dL 0.60-1.30 Serum or plasma urea nitrogen/creatinine mass ratio 22 NRG Serum or plasma creatinine measurement w ith calculation of estimated glomerular filtration rate > NRG Serum or plasma glucose measurement (mass/volume) 195 mg/dL 70-105 Serum or plasma calcium measurement (mass/volume) 8.9 mg/dL 8.5-10.1 Serum or plasma total bilirubin measurement (mass/volu me) 0.9 mg/dL 0.1-1.0 Serum or plasma alkaline phosphatase jenny surement (enzymatic activity/volume) 21 U/L 40-136 Serum or plasma aspartate aminotransfera se measurement (enzymatic activity/volume) 21 U/L 5-34 Serum or plasma alanine aminotransferase measurement (enzymatic activity/volume) 16 U/L 0-55 Serum or plasma protein measurement (mass/volume) 6.6 g/dL 6.4-8.2 Serum or plasma albumin measurement (mass/volume) 4.0 g/dL 3.2-4.5 CALCIUM CORRECTED 8.9 mg/dL 8.5-10.1 Serum or plasma lithium measurement (mol es/volume) - 08/08/18 03:15 BNP level 916.4 pg/mL <100.0 Vancomycin trough - 08/08/18 21:22 Vancomycin trough 16.3 ug/mL 10.0-20.0 Automated blood complete blood count ( mogram) panel - 08/09/18 08:40 Blood leukocytes automated count (number/volume) 25.1 10*3/uL 4.3-11.0 Blood erythrocytes automated count (number/volume) 3.08 10*6/uL 4.35-5.85 Venous blood hemoglobin measurement (mass/volume) 9.6 g/dL 11.5-16.0 Blood hematocrit (volume fraction) 31 % 35-52 Automated erythrocyte mean corpuscular volume 99 [ foz_us] 80-99 Automated erythrocyte mean corpuscular h emoglobin (mass per erythrocyte) 31 pg 25-34 Automated erythrocyte mean corpuscular h emoglobin concentration measurement (mass/volume) 31 g/dL 32-36 Automated erythrocyte distribution width ratio 17. 2 % 10.0- 14.5 Automated blood platelet count (count/volume) 779 10*3/uL 130-400 Automated blood platelet mean volume measurement 9.0 [foz_us] 7.4-10.4 Comprehensive metabolic panel - 08/09/18 08:40 Serum or plasma sodium measurement (moles/volume) 138 mmol/L 135-145 Serum or plasma potassium measurement (moles/volume) 3.8 mmol/L 3.6-5.0 Serum or plasma chloride measurement (moles/volume) 100 mmol/L 98-107 Carbon dioxide 24 mmol/L 21-32 Serum or plasma anion gap determination (moles/volume) 14 mmol/L 5-14 Serum or plasma urea nitrogen measurement (mass/volume ) 17 mg/dL 7-18 Serum or plasma creatinine measurement (mass/volume) 0.80 mg/dL 0.60-1.30 Serum or plasma urea nitrogen/creatinine mass ratio 21 NRG Serum or plasma creatinine measurement w ith calculation of estimated glomerular filtration rate > NRG Serum or plasma glucose measurement (mass/volume) 139 mg/dL 70-105 Serum or plasma calcium measurement (mass/volume) 9.2 mg/dL 8.5-10.1 Serum or plasma total bilirubin measurement (mass/volu me) 0.7 mg/dL 0.1-1.0 Serum or plasma alkaline phosphatase jenny surement (enzymatic activity/volume) 21 U/L 40-136 Serum or plasma aspartate aminotransfera se measurement (enzymatic activity/volume) 24 U/L 5-34 Serum or plasma alanine aminotransferase measurement (enzymatic activity/volume) 14 U/L 0-55 Serum or plasma protein measurement (mass/volume) 7.2 g/dL 6.4-8.2 Serum or plasma albumin measurement (mass/volume) 4.1 g/dL 3.2-4.5 CALCIUM CORRECTED 9.1 mg/dL 8.5-10.1 Automated blood complete blood count (he mogram) panel - 08/10/18 05:55 Blood leukocytes automated count (number/volume) 22.0 10*3/uL 4.3-11.0 Blood erythrocytes automated count (number/volume) 3.24 10*6/uL 4.35-5.85 Venous blood hemoglobin measurement (mass/volume) 9.9 g/dL 11.5-16.0 Blood hematocrit (volume fraction) 32 % 35-52 Automated erythrocyte mean corpuscular volume 100 [foz_us] 80-99 Automated erythrocyte mean corpuscular h emoglobin (mass per erythrocyte) 31 pg 25-34 Automated erythrocyte mean corpuscular h emoglobin concentration measurement (mass/volume) 31 g/dL 32-36 Automated erythrocyte distribution width ratio 16. 9 % 10.0- 14.5 Automated blood platelet count (count/volume) 849 10*3/uL 130-400 Automated blood platelet mean volume measurement 8.9 [foz_us] 7.4-10.4 Comprehensive metabolic panel - 08/10/18 05:55 Serum or plasma sodium measurement (moles/volume) 143 mmol/L 135-145 Serum or plasma potassium measurement (moles/volume) 3.3 mmol/L 3.6-5.0 Serum or plasma chloride measurement (moles/volume) 102 mmol/L 98-107 Carbon dioxide 29 mmol/L 21-32 Serum or plasma anion gap determination (moles/volume) 12 mmol/L 5-14 Serum or plasma urea nitrogen measurement (mass/volume ) 13 mg/dL 7-18 Serum or plasma creatinine measurement (mass/volume) 0.78 mg/dL 0.60-1.30 Serum or plasma urea nitrogen/creatinine mass ratio 17 NRG Serum or plasma creatinine measurement w ith calculation of estimated glomerular filtration rate > NRG Serum or plasma glucose measurement (mass/volume) 100 mg/dL 70-105 Serum or plasma calcium measurement (mass/volume) 8.9 mg/dL 8.5-10.1 Serum or plasma total bilirubin measurement (mass/volu me) 0.6 mg/dL 0.1-1.0 Serum or plasma alkaline phosphatase jenny surement (enzymatic activity/volume) 22 U/L 40-136 Serum or plasma aspartate aminotransfera se measurement (enzymatic activity/volume) 17 U/L 5-34 Serum or plasma alanine aminotransferase measurement (enzymatic activity/volume) 15 U/L 0-55 Serum or plasma protein measurement (mass/volume) 6.8 g/dL 6.4-8.2 Serum or plasma albumin measurement (mass/volume) 4.0 g/dL 3.2-4.5 CALCIUM CORRECTED 8.9 mg/dL 8.5-10.1 Magnesium - 08/10/18 05:55 Magnesium 2.2 mg/dL 1.8-2.4 Serum or plasma lithium measurement (mol es/volume) - 08/10/18 05:55 BNP level 559.3 pg/mL <100.0 Bacterial blood culture - 08/10/18 12:15 Bacterial blood culture NG NRG Blood lactic acid measurement (moles/vol ume) - 08/10/18 12:22 Blood lactic acid measurement (moles/volume) 1.20 mmol/L 0.50-2.00 Bacterial blood culture - 08/10/18 12:22 Bacterial blood culture NG NRG Bacterial blood culture - 08/10/18 12:30 Bacterial blood culture NG NRG Complete urinalysis with reflex to cultu re - 08/10/18 12:55 Urine color determination YELLOW NRG Urine clarity determination CLEAR NR G Urine pH measurement by test strip 6.5 5-9 Specific gravity of urine by test strip 1.010 1.016-1.022 Urine protein assay by test strip, semi-quantitative NEGATIVE NEGATIVE Urine glucose detection by automated test strip NE GATIVE NEGATIVE Erythrocytes detection in urine sediment by light micr oscopy NEGATIVE NEGATIVE Urine ketones detection by automated test strip NE GATIVE NEGATIVE Urine nitrite detection by test strip NEGATIVE NEGATIVE Urine total bilirubin detection by test strip NEGA TIVE NEGATIVE Urine urobilinogen measurement by automated test strip (mass/volume) NORMAL NORMAL Urine leukocyte esterase detection by dipstick NEG ATIVE NEGATIVE Automated urine sediment erythrocyte cou nt by microscopy (number/high power field) NONE NRG Automated urine sediment leukocyte count by microscopy (number/high power field) NONE NRG Bacteria detection in urine sediment by light microsco py NEGATIVE NRG Squamous epithelial cells detection in u rine sediment by light microscopy 2-5 NRG Crystals detection in urine sediment by light microsco py NONE NRG Casts detection in urine sediment by light microscopy NONE NRG Mucus detection in urine sediment by light microscopy NEGATIVE NRG Complete urinalysis with reflex to culture NO NRG Automated blood complete blood count (he mogram) panel - 08/11/18 06:15 Blood leukocytes automated count (number/volume) 19.3 10*3/uL 4.3-11.0 Blood erythrocytes automated count (number/volume) 2.87 10*6/uL 4.35-5.85 Venous blood hemoglobin measurement (mass/volume) 8.8 g/dL 11.5-16.0 Blood hematocrit (volume fraction) 29 % 35-52 Automated erythrocyte mean corpuscular volume 100 [foz_us] 80-99 Automated erythrocyte mean corpuscular h emoglobin (mass per erythrocyte) 31 pg 25-34 Automated erythrocyte mean corpuscular h emoglobin concentration measurement (mass/volume) 31 g/dL 32-36 Automated erythrocyte distribution width ratio 16. 6 % 10.0- 14.5 Automated blood platelet count (count/volume) 779 10*3/uL 130-400 Automated blood platelet mean volume measurement 8.5 [foz_us] 7.4-10.4 Comprehensive metabolic panel - 08/11/18 06:15 Serum or plasma sodium measurement (moles/volume) 141 mmol/L 135-145 Serum or plasma potassium measurement (moles/volume) 3.5 mmol/L 3.6-5.0 Serum or plasma chloride measurement (moles/volume) 101 mmol/L 98-107 Carbon dioxide 30 mmol/L 21-32 Serum or plasma anion gap determination (moles/volume) 10 mmol/L 5-14 Serum or plasma urea nitrogen measurement (mass/volume ) 11 mg/dL 7-18 Serum or plasma creatinine measurement (mass/volume) 0.67 mg/dL 0.60-1.30 Serum or plasma urea nitrogen/creatinine mass ratio 16 NRG Serum or plasma creatinine measurement w ith calculation of estimated glomerular filtration rate > NRG Serum or plasma glucose measurement (mass/volume) 100 mg/dL 70-105 Serum or plasma calcium measurement (mass/volume) 8.8 mg/dL 8.5-10.1 Serum or plasma total bilirubin measurement (mass/volu me) 0.4 mg/dL 0.1-1.0 Serum or plasma alkaline phosphatase jenny surement (enzymatic activity/volume) 19 U/L 40-136 Serum or plasma aspartate aminotransfera se measurement (enzymatic activity/volume) 14 U/L 5-34 Serum or plasma alanine aminotransferase measurement (enzymatic activity/volume) 10 U/L 0-55 Serum or plasma protein measurement (mass/volume) 5.7 g/dL 6.4-8.2 Serum or plasma albumin measurement (mass/volume) 3.4 g/dL 3.2-4.5 CALCIUM CORRECTED 9.3 mg/dL 8.5-10.1 Magnesium - 08/11/18 06:15 Magnesium 1.9 mg/dL 1.8-2.4 Sputum Gram stain - 08/11/18 17:37 Sputum Gram stain relevant, interpret with caution [facility] Bacterial sputum culture - 08/11/18 17:3 7 QUANTITY OF GROWTH Moderate Growth [facility] Bacterial sputum culture [id number] [facility] Automated blood complete blood count (he mogram) panel - 08/12/18 04:20 Blood leukocytes automated count (number/volume) 21.3 10*3/uL 4.3-11.0 Blood erythrocytes automated count (number/volume) 3.31 10*6/uL 4.35-5.85 Venous blood hemoglobin measurement (mass/volume) 10.1 g/dL 11.5-16.0 Blood hematocrit (volume fraction) 33 % 35-52 Automated erythrocyte mean corpuscular volume 100 [foz_us] 80-99 Automated erythrocyte mean corpuscular h emoglobin (mass per erythrocyte) 31 pg 25-34 Automated erythrocyte mean corpuscular h emoglobin concentration measurement (mass/volume) 31 g/dL 32-36 Automated erythrocyte distribution width ratio 16. 3 % 10.0- 14.5 Automated blood platelet count (count/volume) 781 10*3/uL 130-400 Automated blood platelet mean volume measurement 8.7 [foz_us] 7.4-10.4 Comprehensive metabolic panel - 08/12/18 04:20 Serum or plasma sodium measurement (moles/volume) 141 mmol/L 135-145 Serum or plasma potassium measurement (moles/volume) 4.1 mmol/L 3.6-5.0 Serum or plasma chloride measurement (moles/volume) 100 mmol/L 98-107 Carbon dioxide 27 mmol/L 21-32 Serum or plasma anion gap determination (moles/volume) 14 mmol/L 5-14 Serum or plasma urea nitrogen measurement (mass/volume ) 10 mg/dL 7-18 Serum or plasma creatinine measurement (mass/volume) 0.74 mg/dL 0.60-1.30 Serum or plasma urea nitrogen/creatinine mass ratio 14 NRG Serum or plasma creatinine measurement w ith calculation of estimated glomerular filtration rate > NRG Serum or plasma glucose measurement (mass/volume) 128 mg/dL 70-105 Serum or plasma calcium measurement (mass/volume) 9.7 mg/dL 8.5-10.1 Serum or plasma total bilirubin measurement (mass/volu me) 0.5 mg/dL 0.1-1.0 Serum or plasma alkaline phosphatase jenny surement (enzymatic activity/volume) 22 U/L 40-136 Serum or plasma aspartate aminotransfera se measurement (enzymatic activity/volume) 15 U/L 5-34 Serum or plasma alanine aminotransferase measurement (enzymatic activity/volume) 11 U/L 0-55 Serum or plasma protein measurement (mass/volume) 6.7 g/dL 6.4-8.2 Serum or plasma albumin measurement (mass/volume) 3.9 g/dL 3.2-4.5 CALCIUM CORRECTED 9.8 mg/dL 8.5-10.1 Magnesium - 08/12/18 04:20 Magnesium 2.0 mg/dL 1.8-2.4 Automated blood complete blood count (he mogram) panel - 08/13/18 06:50 Blood leukocytes automated count (number/volume) 28.6 10*3/uL 4.3-11.0 Blood erythrocytes automated count (number/volume) 3.31 10*6/uL 4.35-5.85 Venous blood hemoglobin measurement (mass/volume) 10.4 g/dL 11.5-16.0 Blood hematocrit (volume fraction) 32 % 35-52 Automated erythrocyte mean corpuscular volume 98 [ foz_us] 80-99 Automated erythrocyte mean corpuscular h emoglobin (mass per erythrocyte) 31 pg 25-34 Automated erythrocyte mean corpuscular h emoglobin concentration measurement (mass/volume) 32 g/dL 32-36 Automated erythrocyte distribution width ratio 16. 3 % 10.0- 14.5 Automated blood platelet count (count/volume) 862 10*3/uL 130-400 Automated blood platelet mean volume measurement 8.6 [foz_us] 7.4-10.4 Comprehensive metabolic panel - 08/13/18 06:50 Serum or plasma sodium measurement (moles/volume) 140 mmol/L 135-145 Serum or plasma potassium measurement (moles/volume) 3.4 mmol/L 3.6-5.0 Serum or plasma chloride measurement (moles/volume) 100 mmol/L 98-107 Carbon dioxide 26 mmol/L 21-32 Serum or plasma anion gap determination (moles/volume) 14 mmol/L 5-14 Serum or plasma urea nitrogen measurement (mass/volume ) 20 mg/dL 7-18 Serum or plasma creatinine measurement (mass/volume) 1.28 mg/dL 0.60-1.30 Serum or plasma urea nitrogen/creatinine mass ratio 16 NRG Serum or plasma creatinine measurement w ith calculation of estimated glomerular filtration rate 43 NRG Serum or plasma glucose measurement (mass/volume) 145 mg/dL 70-105 Serum or plasma calcium measurement (mass/volume) 9.5 mg/dL 8.5-10.1 Serum or plasma total bilirubin measurement (mass/volu me) 0.7 mg/dL 0.1-1.0 Serum or plasma alkaline phosphatase jenny surement (enzymatic activity/volume) 25 U/L 40-136 Serum or plasma aspartate aminotransfera se measurement (enzymatic activity/volume) 17 U/L 5-34 Serum or plasma alanine aminotransferase measurement (enzymatic activity/volume) 10 U/L 0-55 Serum or plasma protein measurement (mass/volume) 6.7 g/dL 6.4-8.2 Serum or plasma albumin measurement (mass/volume) 3.8 g/dL 3.2-4.5 CALCIUM CORRECTED 9.7 mg/dL 8.5-10.1 Serum or plasma amylase measurement (enz ymatic activity/volume) - 08/13/18 06:50 Serum or plasma amylase measurement (enzymatic activit y/volume) 18 U/L 25-125 Lipase - 08/13/18 06:50 Lipase 4 U/L 8-78 Complete blood count (CBC) with automate d white blood cell (WBC) differential - 08/14/18 11:20 Blood leukocytes automated count (number/volume) 25.4 10*3/uL 4.3-11.0 Blood erythrocytes automated count (number/volume) 2.85 10*6/uL 4.35-5.85 Venous blood hemoglobin measurement (mass/volume) 8.8 g/dL 11.5-16.0 Blood hematocrit (volume fraction) 28 % 35-52 Automated erythrocyte mean corpuscular volume 99 [ foz_us] 80-99 Automated erythrocyte mean corpuscular h emoglobin (mass per erythrocyte) 31 pg 25-34 Automated erythrocyte mean corpuscular h emoglobin concentration measurement (mass/volume) 31 g/dL 32-36 Automated erythrocyte distribution width ratio 15. 7 % 10.0- 14.5 Automated blood platelet count (count/volume) 685 10*3/uL 130-400 Automated blood platelet mean volume measurement 8.8 [foz_us] 7.4-10.4 Automated blood neutrophils/100 leukocytes 82 % 42-75 Automated blood lymphocytes/100 leukocytes 11 % 12-44 Blood monocytes/100 leukocytes 6 % 0-12 Automated blood eosinophils/100 leukocytes 2 % 0-10 Automated blood basophils/100 leukocytes 0 % 0-10 Blood neutrophils automated count (number/volume) 20.7 10*3 1.8-7.8 Blood lymphocytes automated count (number/volume) 2.7 10*3 1.0-4.0 Blood monocytes automated count (number/volume) 1. 6 10*3 0.0-1.0 Automated eosinophil count 0.4 10*3/uL 0 .0-0.3 Automated blood basophil count (count/volume) 0.1 10*3/uL 0.0-0.1 Comprehensive metabolic panel - 08/14/18 11:20 Serum or plasma sodium measurement (moles/volume) 138 mmol/L 135-145 Serum or plasma potassium measurement (moles/volume) 3.2 mmol/L 3.6-5.0 Serum or plasma chloride measurement (moles/volume) 98 mmol/L 98-107 Carbon dioxide 27 mmol/L 21-32 Serum or plasma anion gap determination (moles/volume) 13 mmol/L 5-14 Serum or plasma urea nitrogen measurement (mass/volume ) 25 mg/dL 7-18 Serum or plasma creatinine measurement (mass/volume) 1.69 mg/dL 0.60-1.30 Serum or plasma urea nitrogen/creatinine mass ratio 15 NRG Serum or plasma creatinine measurement w ith calculation of estimated glomerular filtration rate 31 NRG Serum or plasma glucose measurement (mass/volume) 119 mg/dL 70-105 Serum or plasma calcium measurement (mass/volume) 8.8 mg/dL 8.5-10.1 Serum or plasma total bilirubin measurement (mass/volu me) 0.5 mg/dL 0.1-1.0 Serum or plasma alkaline phosphatase jenny surement (enzymatic activity/volume) 22 U/L 40-136 Serum or plasma aspartate aminotransfera se measurement (enzymatic activity/volume) 16 U/L 5-34 Serum or plasma alanine aminotransferase measurement (enzymatic activity/volume) 9 U/L 0-55 Serum or plasma protein measurement (mass/volume) 6.0 g/dL 6.4-8.2 Serum or plasma albumin measurement (mass/volume) 3.4 g/dL 3.2-4.5 CALCIUM CORRECTED 9.3 mg/dL 8.5-10.1 Blood manual differential performed dete ction - 08/14/18 11:20 Blood monocytes/100 leukocytes 6 % NRG Manual blood segmented neutrophils/100 leukocytes 80 % NRG Blood band neutrophils/100 leukocytes 3 % NRG Manual blood lymphocytes/100 leukocytes 10 % NRG Manual eosinophils/100 leukocytes in nose 1 % NRG Blood erythrocyte morphology finding identification NORMAL NRG Blood toxic granules detection by light microscopy 2+ NRG Blood dohle body detection by light microscopy MOD ERATE NRG Blood hypersegmented neutrophils detection by light mi croscopy MARKED NRG Complete blood count (CBC) with automate d white blood cell (WBC) differential - 08/15/18 05:15 Blood leukocytes automated count (number/volume) 17.0 10*3/uL 4.3-11.0 Blood erythrocytes automated count (number/volume) 2.76 10*6/uL 4.35-5.85 Venous blood hemoglobin measurement (mass/volume) 8.6 g/dL 11.5-16.0 Blood hematocrit (volume fraction) 27 % 35-52 Automated erythrocyte mean corpuscular volume 99 [ foz_us] 80-99 Automated erythrocyte mean corpuscular h emoglobin (mass per erythrocyte) 31 pg 25-34 Automated erythrocyte mean corpuscular h emoglobin concentration measurement (mass/volume) 32 g/dL 32-36 Automated erythrocyte distribution width ratio 15. 8 % 10.0- 14.5 Automated blood platelet count (count/volume) 674 10*3/uL 130-400 Automated blood platelet mean volume measurement 8.6 [foz_us] 7.4-10.4 Automated blood neutrophils/100 leukocytes 63 % 42-75 Automated blood lymphocytes/100 leukocytes 20 % 12-44 Blood monocytes/100 leukocytes 10 % 0-12 Automated blood eosinophils/100 leukocytes 6 % 0-10 Automated blood basophils/100 leukocytes 0 % 0-10 Blood neutrophils automated count (number/volume) 10.8 10*3 1.8-7.8 Blood lymphocytes automated count (number/volume) 3.4 10*3 1.0-4.0 Blood monocytes automated count (number/volume) 1. 7 10*3 0.0-1.0 Automated eosinophil count 1.1 10*3/uL 0 .0-0.3 Automated blood basophil count (count/volume) 0.1 10*3/uL 0.0-0.1 Comprehensive metabolic panel - 08/15/18 05:15 Serum or plasma sodium measurement (moles/volume) 137 mmol/L 135-145 Serum or plasma potassium measurement (moles/volume) 3.1 mmol/L 3.6-5.0 Serum or plasma chloride measurement (moles/volume) 97 mmol/L 98-107 Carbon dioxide 27 mmol/L 21-32 Serum or plasma anion gap determination (moles/volume) 13 mmol/L 5-14 Serum or plasma urea nitrogen measurement (mass/volume ) 26 mg/dL 7-18 Serum or plasma creatinine measurement (mass/volume) 1.64 mg/dL 0.60-1.30 Serum or plasma urea nitrogen/creatinine mass ratio 16 NRG Serum or plasma creatinine measurement w ith calculation of estimated glomerular filtration rate 32 NRG Serum or plasma glucose measurement (mass/volume) 103 mg/dL 70-105 Serum or plasma calcium measurement (mass/volume) 9.0 mg/dL 8.5-10.1 Serum or plasma total bilirubin measurement (mass/volu me) 0.4 mg/dL 0.1-1.0 Serum or plasma alkaline phosphatase jenny surement (enzymatic activity/volume) 21 U/L 40-136 Serum or plasma aspartate aminotransfera se measurement (enzymatic activity/volume) 14 U/L 5-34 Serum or plasma alanine aminotransferase measurement (enzymatic activity/volume) 8 U/L 0-55 Serum or plasma protein measurement (mass/volume) 5.9 g/dL 6.4-8.2 Serum or plasma albumin measurement (mass/volume) 3.4 g/dL 3.2-4.5 CALCIUM CORRECTED 9.5 mg/dL 8.5-10.1 Complete blood count (CBC) with automate d white blood cell (WBC) differential - 08/17/18 07:54 Blood leukocytes automated count (number/volume) 12.0 10*3/uL 4.3-11.0 Blood erythrocytes automated count (number/volume) 2.85 10*6/uL 4.35-5.85 Venous blood hemoglobin measurement (mass/volume) 8.9 g/dL 11.5-16.0 Blood hematocrit (volume fraction) 28 % 35-52 Automated erythrocyte mean corpuscular volume 99 [ foz_us] 80-99 Automated erythrocyte mean corpuscular h emoglobin (mass per erythrocyte) 31 pg 25-34 Automated erythrocyte mean corpuscular h emoglobin concentration measurement (mass/volume) 32 g/dL 32-36 Automated erythrocyte distribution width ratio 15. 5 % 10.0- 14.5 Automated blood platelet count (count/volume) 586 10*3/uL 130-400 Automated blood platelet mean volume measurement 8.8 [foz_us] 7.4-10.4 Automated blood neutrophils/100 leukocytes 63 % 42-75 Automated blood lymphocytes/100 leukocytes 18 % 12-44 Blood monocytes/100 leukocytes 10 % 0-12 Automated blood eosinophils/100 leukocytes 9 % 0-10 Automated blood basophils/100 leukocytes 0 % 0-10 Blood neutrophils automated count (number/volume) 7.5 10*3 1.8-7.8 Blood lymphocytes automated count (number/volume) 2.1 10*3 1.0-4.0 Blood monocytes automated count (number/volume) 1. 2 10*3 0.0-1.0 Automated eosinophil count 1.1 10*3/uL 0 .0-0.3 Automated blood basophil count (count/volume) 0.1 10*3/uL 0.0-0.1 Comprehensive metabolic panel - 08/17/18 07:54 Serum or plasma sodium measurement (moles/volume) 137 mmol/L 135-145 Serum or plasma potassium measurement (moles/volume) 4.0 mmol/L 3.6-5.0 Serum or plasma chloride measurement (moles/volume) 103 mmol/L 98-107 Carbon dioxide 26 mmol/L 21-32 Serum or plasma anion gap determination (moles/volume) 8 mmol/L 5-14 Serum or plasma urea nitrogen measurement (mass/volume ) 17 mg/dL 7-18 Serum or plasma creatinine measurement (mass/volume) 1.23 mg/dL 0.60-1.30 Serum or plasma urea nitrogen/creatinine mass ratio 14 NRG Serum or plasma creatinine measurement w ith calculation of estimated glomerular filtration rate 45 NRG Serum or plasma glucose measurement (mass/volume) 101 mg/dL 70-105 Serum or plasma calcium measurement (mass/volume) 9.2 mg/dL 8.5-10.1 Serum or plasma total bilirubin measurement (mass/volu me) 0.2 mg/dL 0.1-1.0 Serum or plasma alkaline phosphatase jenny surement (enzymatic activity/volume) 23 U/L 40-136 Serum or plasma aspartate aminotransfera se measurement (enzymatic activity/volume) 18 U/L 5-34 Serum or plasma alanine aminotransferase measurement (enzymatic activity/volume) 10 U/L 0-55 Serum or plasma protein measurement (mass/volume) 5.9 g/dL 6.4-8.2 Serum or plasma albumin measurement (mass/volume) 3.4 g/dL 3.2-4.5 CALCIUM CORRECTED 9.7 mg/dL 8.5-10.1 Serum or plasma phosphate measurement (m ass/volume) - 08/17/18 07:54 Serum or plasma phosphate measurement (mass/volume) 4.4 mg/dL 2.3-4.7 Magnesium - 08/17/18 07:54 Magnesium 1.9 mg/dL 1.8-2.4 Serum or plasma lithium measurement (mol es/volume) - 08/17/18 07:54 BNP level 853.2 pg/mL <100.0 Complete blood count (CBC) with automate d white blood cell (WBC) differential - 08/23/18 04:30 Blood leukocytes automated count (number/volume) 14.7 10*3/uL 4.3-11.0 Blood erythrocytes automated count (number/volume) 3.08 10*6/uL 4.35-5.85 Venous blood hemoglobin measurement (mass/volume) 9.7 g/dL 11.5-16.0 Blood hematocrit (volume fraction) 30 % 35-52 Automated erythrocyte mean corpuscular volume 97 [ foz_us] 80-99 Automated erythrocyte mean corpuscular h emoglobin (mass per erythrocyte) 31 pg 25-34 Automated erythrocyte mean corpuscular h emoglobin concentration measurement (mass/volume) 33 g/dL 32-36 Automated erythrocyte distribution width ratio 14. 9 % 10.0- 14.5 Automated blood platelet count (count/volume) 512 10*3/uL 130-400 Automated blood platelet mean volume measurement 9.2 [foz_us] 7.4-10.4 Automated blood neutrophils/100 leukocytes 63 % 42-75 Automated blood lymphocytes/100 leukocytes 22 % 12-44 Blood monocytes/100 leukocytes 9 % 0-12 Automated blood eosinophils/100 leukocytes 6 % 0-10 Automated blood basophils/100 leukocytes 1 % 0-10 Blood neutrophils automated count (number/volume) 9.2 10*3 1.8-7.8 Blood lymphocytes automated count (number/volume) 3.2 10*3 1.0-4.0 Blood monocytes automated count (number/volume) 1. 4 10*3 0.0-1.0 Automated eosinophil count 0.8 10*3/uL 0 .0-0.3 Automated blood basophil count (count/volume) 0.1 10*3/uL 0.0-0.1 PT panel in platelet poor plasma by coag ulation assay - 08/23/18 04:30 Prothrombin time (PT) in platelet poor plasma by coagu lation assay 13.1 s 12.2-14.7 INR in platelet poor plasma or blood by coagulation as say 1.0 0.8-1.4 Activated partial thromboplastin time (a PTT) in platelet poor plasma bycoagulation assay - 08/23/18 04:30 Activated partial thromboplastin time (a PTT) in platelet poor plasma bycoagulation assay 39 s 24-35 Blood lactic acid measurement (moles/vol ume) - 08/23/18 04:30 Blood lactic acid measurement (moles/volume) 1.04 mmol/L 0.50-2.00 Blood manual differential performed dete ction - 08/23/18 04:30 Blood monocytes/100 leukocytes 11 % NRG Manual blood segmented neutrophils/100 leukocytes 67 % NRG Blood band neutrophils/100 leukocytes 1 % NRG Manual blood lymphocytes/100 leukocytes 14 % NRG Manual eosinophils/100 leukocytes in nose 5 % NRG Manual blood basophils/100 leukocytes 0 % NRG Blood lymphocytes variant/100 leukocytes 2 % NRG Blood polychromasia detection by light microscopy SLIGHT NRG Blood anisocytosis detection by light microscopy S LIGHT NRG Blood toxic granules detection by light microscopy 1+ NRG Blood hypersegmented neutrophils detection by light mi croscopy SLIGHT NRG Comprehensive metabolic panel - 08/23/18 04:30 Serum or plasma sodium measurement (moles/volume) 134 mmol/L 135-145 Serum or plasma potassium measurement (moles/volume) 5.9 mmol/L 3.6-5.0 Serum or plasma chloride measurement (moles/volume) 104 mmol/L 98-107 Carbon dioxide 19 mmol/L 21-32 Serum or plasma anion gap determination (moles/volume) 11 mmol/L 5-14 Serum or plasma urea nitrogen measurement (mass/volume ) 16 mg/dL 7-18 Serum or plasma creatinine measurement (mass/volume) 1.96 mg/dL 0.60-1.30 Serum or plasma urea nitrogen/creatinine mass ratio 8 NRG Serum or plasma creatinine measurement w ith calculation of estimated glomerular filtration rate 26 NRG Serum or plasma glucose measurement (mass/volume) 104 mg/dL 70-105 Serum or plasma calcium measurement (mass/volume) 9.5 mg/dL 8.5-10.1 Serum or plasma total bilirubin measurement (mass/volu me) 0.2 mg/dL 0.1-1.0 Serum or plasma alkaline phosphatase jenny surement (enzymatic activity/volume) 37 U/L 40-136 Serum or plasma aspartate aminotransfera se measurement (enzymatic activity/volume) 22 U/L 5-34 Serum or plasma alanine aminotransferase measurement (enzymatic activity/volume) 12 U/L 0-55 Serum or plasma protein measurement (mass/volume) 6.6 g/dL 6.4-8.2 Serum or plasma albumin measurement (mass/volume) 3.9 g/dL 3.2-4.5 CALCIUM CORRECTED 9.6 mg/dL 8.5-10.1 Magnesium - 08/23/18 04:30 Magnesium 2.3 mg/dL 1.8-2.4 Serum or plasma lithium measurement (mol es/volume) - 08/23/18 04:30 BNP level 935.6 pg/mL <100.0 Bacterial blood culture - 08/23/18 04:30 Bacterial blood culture NG NRG Complete urinalysis with reflex to cultu re - 08/23/18 04:42 Urine color determination YELLOW NRG Urine clarity determination CLEAR NR G Urine pH measurement by test strip 7 5-9 Specific gravity of urine by test strip 1.005 1.016-1.022 Urine protein assay by test strip, semi-quantitative NEGATIVE NEGATIVE Urine glucose detection by automated test strip NE GATIVE NEGATIVE Erythrocytes detection in urine sediment by light micr oscopy NEGATIVE NEGATIVE Urine ketones detection by automated test strip NE GATIVE NEGATIVE Urine nitrite detection by test strip NEGATIVE NEGATIVE Urine total bilirubin detection by test strip NEGA TIVE NEGATIVE Urine urobilinogen measurement by automated test strip (mass/volume) NORMAL NORMAL Urine leukocyte esterase detection by dipstick NEG ATIVE NEGATIVE Automated urine sediment erythrocyte cou nt by microscopy (number/high power field) NONE NRG Automated urine sediment leukocyte count by microscopy (number/high power field) RARE NRG Bacteria detection in urine sediment by light microsco py NEGATIVE NRG Squamous epithelial cells detection in u rine sediment by light microscopy RARE NRG Crystals detection in urine sediment by light microsco py NONE NRG Casts detection in urine sediment by light microscopy NONE NRG Mucus detection in urine sediment by light microscopy NEGATIVE NRG Complete urinalysis with reflex to culture NO NRG Urine drug screening test - 08/23/18 04: 42 Urine phencyclidine detection by screening method NEGATIVE NEGATIVE Urine benzodiazepines detection by screening method NEGATIVE NEGATIVE Urine cocaine detection NEGATIVE NEGATI VE Urine amphetamines detection by screening method N EGATIVE NEGATIVE Urine methamphetamine detection by screening method NEGATIVE NEGATIVE Urine cannabinoids detection by screening method N EGATIVE NEGATIVE Urine opiates detection by screening method NEGATI VE NEGATIVE Urine barbiturates detection NEGATIVE N EGATIVE Screening urine tricyclic antidepressants detection NEGATIVE NEGATIVE Urine methadone detection by screening method NEGA TIVE NEGATIVE Urine oxycodone detection POSITIVE NEGA TIVE Urine propoxyphene detection NEGATIVE N EGATIVE Influenza virus A and B antigen detectio n - 08/23/18 04:42 FLU RESULT NEGATIVE FOR INFLUENZA A AND B ANTIGENS BY IA NRG Bacterial blood culture - 08/23/18 04:50 Bacterial blood culture NG NRG Complete blood count (CBC) with automate d white blood cell (WBC) differential - 09/06/18 10:45 Blood leukocytes automated count (number/volume) 11.2 10*3/uL 4.3-11.0 Blood erythrocytes automated count (number/volume) 3.72 10*6/uL 4.35-5.85 Venous blood hemoglobin measurement (mass/volume) 11.6 g/dL 11.5-16.0 Blood hematocrit (volume fraction) 36 % 35-52 Automated erythrocyte mean corpuscular volume 96 [ foz_us] 80-99 Automated erythrocyte mean corpuscular h emoglobin (mass per erythrocyte) 31 pg 25-34 Automated erythrocyte mean corpuscular h emoglobin concentration measurement (mass/volume) 33 g/dL 32-36 Automated erythrocyte distribution width ratio 15. 0 % 10.0- 14.5 Automated blood platelet count (count/volume) 596 10*3/uL 130-400 Automated blood platelet mean volume measurement 9.3 [foz_us] 7.4-10.4 Automated blood neutrophils/100 leukocytes 67 % 42-75 Automated blood lymphocytes/100 leukocytes 17 % 12-44 Blood monocytes/100 leukocytes 7 % 0-12 Automated blood eosinophils/100 leukocytes 8 % 0-10 Automated blood basophils/100 leukocytes 1 % 0-10 Blood neutrophils automated count (number/volume) 7.5 10*3 1.8-7.8 Blood lymphocytes automated count (number/volume) 1.9 10*3 1.0-4.0 Blood monocytes automated count (number/volume) 0. 8 10*3 0.0-1.0 Automated eosinophil count 0.9 10*3/uL 0 .0-0.3 Automated blood basophil count (count/volume) 0.1 10*3/uL 0.0-0.1 PT panel in platelet poor plasma by coag ulation assay - 09/06/18 10:45 Prothrombin time (PT) in platelet poor plasma by coagu lation assay 13.6 s 12.2-14.7 INR in platelet poor plasma or blood by coagulation as say 1.0 0.8-1.4 Activated partial thromboplastin time (a PTT) in platelet poor plasma bycoagulation assay - 09/06/18 10:45 Activated partial thromboplastin time (a PTT) in platelet poor plasma bycoagulation assay 25 s 24-35 Comprehensive metabolic panel - 09/06/18 10:45 Serum or plasma sodium measurement (moles/volume) 142 mmol/L 135-145 Serum or plasma potassium measurement (moles/volume) 4.9 mmol/L 3.6-5.0 Serum or plasma chloride measurement (moles/volume) 110 mmol/L 98-107 Carbon dioxide 20 mmol/L 21-32 Serum or plasma anion gap determination (moles/volume) 12 mmol/L 5-14 Serum or plasma urea nitrogen measurement (mass/volume ) 9 mg/dL 7-18 Serum or plasma creatinine measurement (mass/volume) 0.85 mg/dL 0.60-1.30 Serum or plasma urea nitrogen/creatinine mass ratio 11 NRG Serum or plasma creatinine measurement w ith calculation of estimated glomerular filtration rate > NRG Serum or plasma glucose measurement (mass/volume) 123 mg/dL 70-105 Serum or plasma calcium measurement (mass/volume) 10.2 mg/dL 8.5-10.1 Serum or plasma total bilirubin measurement (mass/volu me) 0.3 mg/dL 0.1-1.0 Serum or plasma alkaline phosphatase jenny surement (enzymatic activity/volume) 44 U/L 40-136 Serum or plasma aspartate aminotransfera se measurement (enzymatic activity/volume) 19 U/L 5-34 Serum or plasma alanine aminotransferase measurement (enzymatic activity/volume) 10 U/L 0-55 Serum or plasma protein measurement (mass/volume) 7.9 g/dL 6.4-8.2 Serum or plasma albumin measurement (mass/volume) 4.2 g/dL 3.2-4.5 CALCIUM CORRECTED 10.0 mg/dL 8.5-10.1 Magnesium - 09/06/18 10:45 Magnesium 1.8 mg/dL 1.8-2.4 Serum or plasma troponin i.cardiac measu rement (mass/volume) - 09/06/18 10:45 Serum or plasma troponin i.cardiac measurement (mass/v olume) < ng/mL <0.028 Serum or plasma lithium measurement (mol es/volume) - 09/06/18 10:45 BNP level 161.2 pg/mL <100.0 Myoglobin, serum - 09/06/18 10:45 Myoglobin, serum 25.6 ng/mL 10.0-92.0 Lipase - 09/06/18 10:45 Lipase 8 U/L 8-78 Gram stain microscopy - 09/07/18 14:20 Gram stain microscopy 09-08-2018, [address]. [facility] Bacteria identification in wound by cult ure - 09/07/18 14:20 Bacteria identification in wound by culture SEE CO MMEN NR FREE TEXT EXTERNAL [facility] SENT SENSITIVITY REPORT 08/15 9 16:05 NR QUANTITY OF GROWTH . [facility] Sensitivity Panel - 09/07/18 14:20 Oxacillin susceptibility test by minimum inhibitory co ncentration 0.5 NRG Clindamycin susceptibility test by minimum inhibitory concentration <= NRG Erythromycin susceptibility test by minimum inhibitory concentration > NRG Trimethoprim/sulfamethoxazole susceptibi lity test by minimum inhibitoryconcentration S NRG Vancomycin susceptibility test by minimum inhibitory c oncentration <= NRG Levofloxacin susceptibility test by minimum inhibitory concentration <= NRG Rifampin susceptibility test by minimum inhibitory con centration <= NRG Cefazolin susceptibility test by minimum inhibitory co ncentration <= NRG Linezolid susceptibility test by minimum inhibitory co ncentration <= NRG Penicillin G susceptibility test by minimum inhibitory concentration > NRG Minocycline susc MARCY <= NRG RML Sensitivity Panel - 09/07/18 14:20 Gentamicin susceptibility test by minimum inhibitory c oncentration <= NRG Trimethoprim/sulfamethoxazole susceptibi lity test by minimum inhibitoryconcentration S NRG Levofloxacin susceptibility test by minimum inhibitory concentration <= NRG Ampicillin susceptibility test by minimum inhibitory c oncentration R NRG Cefazolin susceptibility test by minimum inhibitory co ncentration R NRG Ceftriaxone susceptibility test by minimum inhibitory concentration <= NRG Piperacillin/tazobactam susceptibility t est by minimum inhibitory concentration S NRG Ciprofloxacin susceptibility test by minimum inhibitor y concentration <= NRG Meropenem susceptibility test by minimum inhibitory co ncentration <= NRG Amoxicillin and clavulanate potassium susc MARCY R NRG Complete blood count (CBC) with automate d white blood cell (WBC) differential - 09/14/18 11:45 Blood leukocytes automated count (number/volume) 12.1 10*3/uL 4.3-11.0 Blood erythrocytes automated count (number/volume) 3.48 10*6/uL 4.35-5.85 Venous blood hemoglobin measurement (mass/volume) 10.8 g/dL 11.5-16.0 Blood hematocrit (volume fraction) 33 % 35-52 Automated erythrocyte mean corpuscular volume 94 [ foz_us] 80-99 Automated erythrocyte mean corpuscular h emoglobin (mass per erythrocyte) 31 pg 25-34 Automated erythrocyte mean corpuscular h emoglobin concentration measurement (mass/volume) 33 g/dL 32-36 Automated erythrocyte distribution width ratio 14. 3 % 10.0- 14.5 Automated blood platelet count (count/volume) 504 10*3/uL 130-400 Automated blood platelet mean volume measurement 9.4 [foz_us] 7.4-10.4 Automated blood neutrophils/100 leukocytes 59 % 42-75 Automated blood lymphocytes/100 leukocytes 26 % 12-44 Blood monocytes/100 leukocytes 7 % 0-12 Automated blood eosinophils/100 leukocytes 6 % 0-10 Automated blood basophils/100 leukocytes 1 % 0-10 Blood neutrophils automated count (number/volume) 7.2 10*3 1.8-7.8 Blood lymphocytes automated count (number/volume) 3.2 10*3 1.0-4.0 Blood monocytes automated count (number/volume) 0. 8 10*3 0.0-1.0 Automated eosinophil count 0.7 10*3/uL 0 .0-0.3 Automated blood basophil count (count/volume) 0.2 10*3/uL 0.0-0.1 Comprehensive metabolic panel - 09/14/18 11:45 Serum or plasma sodium measurement (moles/volume) 136 mmol/L 135-145 Serum or plasma potassium measurement (moles/volume) 4.2 mmol/L 3.6-5.0 Serum or plasma chloride measurement (moles/volume) 108 mmol/L 98-107 Carbon dioxide 14 mmol/L 21-32 Serum or plasma anion gap determination (moles/volume) 14 mmol/L 5-14 Serum or plasma urea nitrogen measurement (mass/volume ) 7 mg/dL 7-18 Serum or plasma creatinine measurement (mass/volume) 1.04 mg/dL 0.60-1.30 Serum or plasma urea nitrogen/creatinine mass ratio 7 NRG Serum or plasma creatinine measurement w ith calculation of estimated glomerular filtration rate 55 NRG Serum or plasma glucose measurement (mass/volume) 106 mg/dL 70-105 Serum or plasma calcium measurement (mass/volume) 9.1 mg/dL 8.5-10.1 Serum or plasma total bilirubin measurement (mass/volu me) 0.2 mg/dL 0.1-1.0 Serum or plasma alkaline phosphatase jenny surement (enzymatic activity/volume) 37 U/L 40-136 Serum or plasma aspartate aminotransfera se measurement (enzymatic activity/volume) 15 U/L 5-34 Serum or plasma alanine aminotransferase measurement (enzymatic activity/volume) 9 U/L 0-55 Serum or plasma protein measurement (mass/volume) 6.9 g/dL 6.4-8.2 Serum or plasma albumin measurement (mass/volume) 3.8 g/dL 3.2-4.5 CALCIUM CORRECTED 9.3 mg/dL 8.5-10.1 Bacteria identification in isolate by an aerobe culture - 09/19/18 15:52 Bacteria identification in isolate by anaerobe culture NOANA NRG Gram stain microscopy - 09/19/18 15:52 Gram stain microscopy No bacteria seen NRG Bacteria identification in wound by cult ure - 09/19/18 15:52 Bacteria identification in wound by culture [id number] NRG FREE TEXT EXTERNAL SENSITIVITY REPORT RECEIVED 09/22 11:05 NRG QUANTITY OF GROWTH Rare NRG FREE TEXT ENTRY 2 ORGANISM ID REPORT RECEIVED 09/21 10:05 NRG RML Sensitivity Panel - 09/19/18 15:52 Gentamicin susceptibility test by minimum inhibitory c oncentration <= NRG Levofloxacin susceptibility test by minimum inhibitory concentration 2 NRG Tobramycin susceptibility test by minimum inhibitory c oncentration S NRG Piperacillin/tazobactam susceptibility t est by minimum inhibitory concentration = NRG Ciprofloxacin susceptibility test by minimum inhibitor y concentration <= NRG Meropenem susceptibility test by minimum inhibitory co ncentration 2 NRG Aztreonam susceptibility test by minimum inhibitory co ncentration > NRG Cefepime susceptibility test by minimum inhibitory con centration 8 NRG Imipenem susceptibility test by minimum inhibitory con centration 1 NRG Ceftazidime susceptibility test by minimum inhibitory concentration 8 NRG Complete blood count (CBC) with automate d white blood cell (WBC) differential - 09/23/18 19:24 Blood leukocytes automated count (number/volume) 14.1 10*3/uL 4.3-11.0 Blood erythrocytes automated count (number/volume) 3.80 10*6/uL 4.35-5.85 Venous blood hemoglobin measurement (mass/volume) 12.0 g/dL 11.5-16.0 Blood hematocrit (volume fraction) 36 % 35-52 Automated erythrocyte mean corpuscular volume 95 [ foz_us] 80-99 Automated erythrocyte mean corpuscular h emoglobin (mass per erythrocyte) 32 pg 25-34 Automated erythrocyte mean corpuscular h emoglobin concentration measurement (mass/volume) 33 g/dL 32-36 Automated erythrocyte distribution width ratio 13. 6 % 10.0- 14.5 Automated blood platelet count (count/volume) 153 10*3/uL 130-400 Automated blood platelet mean volume measurement 9.8 [foz_us] 7.4-10.4 Automated blood neutrophils/100 leukocytes 58 % 42-75 Automated blood lymphocytes/100 leukocytes 30 % 12-44 Blood monocytes/100 leukocytes 6 % 0-12 Automated blood eosinophils/100 leukocytes 5 % 0-10 Automated blood basophils/100 leukocytes 1 % 0-10 Blood neutrophils automated count (number/volume) 8.2 10*3 1.8-7.8 Blood lymphocytes automated count (number/volume) 4.2 10*3 1.0-4.0 Blood monocytes automated count (number/volume) 0. 9 10*3 0.0-1.0 Automated eosinophil count 0.7 10*3/uL 0 .0-0.3 Automated blood basophil count (count/volume) 0.2 10*3/uL 0.0-0.1 PT panel in platelet poor plasma by coag ulation assay - 09/23/18 19:24 Prothrombin time (PT) in platelet poor plasma by coagu lation assay 13.4 s 12.2-14.7 INR in platelet poor plasma or blood by coagulation as say 1.0 0.8-1.4 Activated partial thromboplastin time (a PTT) in platelet poor plasma bycoagulation assay - 09/23/18 19:24 Activated partial thromboplastin time (a PTT) in platelet poor plasma bycoagulation assay 26 s 24-35 Comprehensive metabolic panel - 09/23/18 19:24 Serum or plasma sodium measurement (moles/volume) 136 mmol/L 135-145 Serum or plasma potassium measurement (moles/volume) 4.5 mmol/L 3.6-5.0 Serum or plasma chloride measurement (moles/volume) 107 mmol/L 98-107 Carbon dioxide 12 mmol/L 21-32 Serum or plasma anion gap determination (moles/volume) 17 mmol/L 5-14 Serum or plasma urea nitrogen measurement (mass/volume ) 3 mg/dL 7-18 Serum or plasma creatinine measurement (mass/volume) 0.77 mg/dL 0.60-1.30 Serum or plasma urea nitrogen/creatinine mass ratio 4 NRG Serum or plasma creatinine measurement w ith calculation of estimated glomerular filtration rate > NRG Serum or plasma glucose measurement (mass/volume) 119 mg/dL 70-105 Serum or plasma calcium measurement (mass/volume) 9.9 mg/dL 8.5-10.1 Serum or plasma total bilirubin measurement (mass/volu me) 0.2 mg/dL 0.1-1.0 Serum or plasma alkaline phosphatase jenny surement (enzymatic activity/volume) 40 U/L 40-136 Serum or plasma aspartate aminotransfera se measurement (enzymatic activity/volume) 25 U/L 5-34 Serum or plasma alanine aminotransferase measurement (enzymatic activity/volume) 9 U/L 0-55 Serum or plasma protein measurement (mass/volume) 7.9 g/dL 6.4-8.2 Serum or plasma albumin measurement (mass/volume) 4.1 g/dL 3.2-4.5 CALCIUM CORRECTED 9.8 mg/dL 8.5-10.1 Magnesium - 09/23/18 19:24 Magnesium 2.3 mg/dL 1.8-2.4 Serum or plasma creatine kinase measurem ent (enzymatic activity/volume) - 09/23/18 19:24 Serum or plasma creatine kinase measurem ent (enzymatic activity/volume) 42 U/L 29-168 Serum or plasma creatine kinase MB measu rement (enzymatic activity/volume) - 09/23/18 19:24 Serum or plasma creatine kinase MB measu rement (enzymatic activity/volume) 0.8 ng/mL <6.6 Serum or plasma troponin i.cardiac measu rement (mass/volume) - 09/23/18 19:24 Serum or plasma troponin i.cardiac measurement (mass/v olume) < ng/mL <0.028 Myoglobin, serum - 09/23/18 19:24 Myoglobin, serum 23.1 ng/mL 10.0-92.0 Serum or plasma amylase measurement (enz ymatic activity/volume) - 09/23/18 19:24 Serum or plasma amylase measurement (enzymatic activit y/volume) 38 U/L 25-125 Lipase - 09/23/18 19:24 Lipase 12 U/L 8-78 Serum or plasma lithium measurement (mol es/volume) - 09/23/18 19:24 BNP level 92.5 pg/mL <100.0 PREALBUMIN - 09/26/18 15:15 PREALBUM 27.2 % 18.0-37.0 Influenza virus A and B antigen detectio n - 10/16/18 05:39 FLU RESULT NEGATIVE FOR INFLUENZA A AND B ANTIGENS BY IA NRG Magnesium - 10/16/18 05:46 Magnesium 2.1 mg/dL 1.8-2.4 Complete blood count (CBC) with automate d white blood cell (WBC) differential - 10/16/18 05:46 Blood leukocytes automated count (number/volume) 13.6 10*3/uL 4.3-11.0 Blood erythrocytes automated count (number/volume) 4.02 10*6/uL 4.35-5.85 Venous blood hemoglobin measurement (mass/volume) 12.6 g/dL 11.5-16.0 Blood hematocrit (volume fraction) 37 % 35-52 Automated erythrocyte mean corpuscular volume 92 [ foz_us] 80-99 Automated erythrocyte mean corpuscular h emoglobin (mass per erythrocyte) 31 pg 25-34 Automated erythrocyte mean corpuscular h emoglobin concentration measurement (mass/volume) 34 g/dL 32-36 Automated erythrocyte distribution width ratio 12. 9 % 10.0- 14.5 Automated blood platelet count (count/volume) 433 10*3/uL 130-400 Automated blood platelet mean volume measurement 9.1 [foz_us] 7.4-10.4 Automated blood neutrophils/100 leukocytes 95 % 42-75 Automated blood lymphocytes/100 leukocytes 3 % 12-44 Blood monocytes/100 leukocytes 2 % 0-12 Automated blood eosinophils/100 leukocytes 1 % 0-10 Automated blood basophils/100 leukocytes 0 % 0-10 Blood neutrophils automated count (number/volume) 12.9 10*3 1.8-7.8 Blood lymphocytes automated count (number/volume) 0.4 10*3 1.0-4.0 Blood monocytes automated count (number/volume) 0. 2 10*3 0.0-1.0 Automated eosinophil count 0.1 10*3/uL 0 .0-0.3 Automated blood basophil count (count/volume) 0.0 10*3/uL 0.0-0.1 Serum or plasma troponin i.cardiac measu rement (mass/volume) - 10/16/18 05:46 Serum or plasma troponin i.cardiac measurement (mass/v olume) < ng/mL <0.028 Myoglobin, serum - 10/16/18 05:46 Myoglobin, serum 31.3 ng/mL 10.0-92.0 PT panel in platelet poor plasma by coag ulation assay - 10/16/18 05:46 Prothrombin time (PT) in platelet poor plasma by coagu lation assay 14.6 s 12.2-14.7 INR in platelet poor plasma or blood by coagulation as say 1.1 0.8-1.4 Activated partial thromboplastin time (a PTT) in platelet poor plasma bycoagulation assay - 10/16/18 05:46 Activated partial thromboplastin time (a PTT) in platelet poor plasma bycoagulation assay 43 s 24-35 Comprehensive metabolic panel - 10/16/18 05:46 Serum or plasma sodium measurement (moles/volume) 132 mmol/L 135-145 Serum or plasma potassium measurement (moles/volume) 3.6 mmol/L 3.6-5.0 Serum or plasma chloride measurement (moles/volume) 100 mmol/L 98-107 Carbon dioxide 16 mmol/L 21-32 Serum or plasma anion gap determination (moles/volume) 16 mmol/L 5-14 Serum or plasma urea nitrogen measurement (mass/volume ) 11 mg/dL 7-18 Serum or plasma creatinine measurement (mass/volume) 1.10 mg/dL 0.60-1.30 Serum or plasma urea nitrogen/creatinine mass ratio 10 NRG Serum or plasma creatinine measurement w ith calculation of estimated glomerular filtration rate 51 NRG Serum or plasma glucose measurement (mass/volume) 103 mg/dL 70-105 Serum or plasma calcium measurement (mass/volume) 9.5 mg/dL 8.5-10.1 Serum or plasma total bilirubin measurement (mass/volu me) 0.2 mg/dL 0.1-1.0 Serum or plasma alkaline phosphatase jenny surement (enzymatic activity/volume) 50 U/L 40-136 Serum or plasma aspartate aminotransfera se measurement (enzymatic activity/volume) 21 U/L 5-34 Serum or plasma alanine aminotransferase measurement (enzymatic activity/volume) 10 U/L 0-55 Serum or plasma protein measurement (mass/volume) 7.4 g/dL 6.4-8.2 Serum or plasma albumin measurement (mass/volume) 3.8 g/dL 3.2-4.5 CALCIUM CORRECTED 9.7 mg/dL 8.5-10.1 Blood manual differential performed dete ction - 10/16/18 05:46 Blood monocytes/100 leukocytes 1 % NRG Manual blood segmented neutrophils/100 leukocytes 91 % NRG Manual blood lymphocytes/100 leukocytes 8 % NRG Blood lactic acid measurement (moles/vol ume) - 10/16/18 06:15 Blood lactic acid measurement (moles/volume) 2.72 mmol/L 0.50-2.00 Bacterial blood culture - 10/16/18 06:15 FREE TEXT EXTERNAL MUCOID COLONY TYPE N RG QUANTITY OF GROWTH Isolated NRG Bacterial blood culture [id number] NRG FREE TEXT ENTRY 2 RML REPORTED ID AND SENSITIVITY 10/18/18 NRG FREE TEXT ENTRY 3 08:05 NRG Bacterial blood culture - 10/16/18 06:25 FREE TEXT EXTERNAL MUCOID COLONY TYPE N RG QUANTITY OF GROWTH Isolated NRG Bacterial blood culture [id number] NRG FREE TEXT ENTRY 2 REFER TO PREVIOUS CULTURE FOR NRG FREE TEXT ENTRY 3 SUSCEPTIBILITY. NRG Complete urinalysis with reflex to cultu re - 10/16/18 07:18 Urine color determination YELLOW NRG Urine clarity determination CLEAR NR G Urine pH measurement by test strip 6 5-9 Specific gravity of urine by test strip 1.010 1.016-1.022 Urine protein assay by test strip, semi-quantitative 1+ NEGATIVE Urine glucose detection by automated test strip NE GATIVE NEGATIVE Erythrocytes detection in urine sediment by light micr oscopy NEGATIVE NEGATIVE Urine ketones detection by automated test strip NE GATIVE NEGATIVE Urine nitrite detection by test strip NEGATIVE NEGATIVE Urine total bilirubin detection by test strip NEGA TIVE NEGATIVE Urine urobilinogen measurement by automated test strip (mass/volume) NORMAL NORMAL Urine leukocyte esterase detection by dipstick NEG ATIVE NEGATIVE Automated urine sediment erythrocyte cou nt by microscopy (number/high power field) NONE NRG Automated urine sediment leukocyte count by microscopy (number/high power field) [HPF] NRG Bacteria detection in urine sediment by light microsco py TRACE NRG Squamous epithelial cells detection in u rine sediment by light microscopy 2-5 NRG Crystals detection in urine sediment by light microsco py NONE NRG Casts detection in urine sediment by light microscopy NONE NRG Mucus detection in urine sediment by light microscopy NEGATIVE NRG Complete urinalysis with reflex to culture CULTURE PENDING NRG Urine drug screening test - 10/16/18 07: 18 Urine phencyclidine detection by screening method NEGATIVE NEGATIVE Urine benzodiazepines detection by screening method NEGATIVE NEGATIVE Urine cocaine detection NEGATIVE NEGATI VE Urine amphetamines detection by screening method N EGATIVE NEGATIVE Urine methamphetamine detection by screening method NEGATIVE NEGATIVE Urine cannabinoids detection by screening method N EGATIVE NEGATIVE Urine opiates detection by screening method NEGATI VE NEGATIVE Urine barbiturates detection POSITIVE N EGATIVE Screening urine tricyclic antidepressants detection NEGATIVE NEGATIVE Urine methadone detection by screening method NEGA TIVE NEGATIVE Urine oxycodone detection NEGATIVE NEGA TIVE Urine propoxyphene detection NEGATIVE N EGATIVE Bacterial urine culture - 10/16/18 07:18 Bacterial urine culture NG NRG Serum or plasma lactate measurement (mol es/volume) - 10/16/18 08:15 Serum or plasma lactate measurement (moles/volume) 2.92 mmol/L 0.50-2.00 Blood lactic acid measurement (moles/vol ume) - 10/16/18 12:40 Blood lactic acid measurement (moles/volume) 1.94 mmol/L 0.50-2.00 Complete blood count (CBC) with automate d white blood cell (WBC) differential - 10/16/18 15:04 Blood leukocytes automated count (number/volume) 13.9 10*3/uL 4.3-11.0 Blood erythrocytes automated count (number/volume) 3.68 10*6/uL 4.35-5.85 Venous blood hemoglobin measurement (mass/volume) 11.3 g/dL 11.5-16.0 Blood hematocrit (volume fraction) 34 % 35-52 Automated erythrocyte mean corpuscular volume 91 [ foz_us] 80-99 Automated erythrocyte mean corpuscular h emoglobin (mass per erythrocyte) 31 pg 25-34 Automated erythrocyte mean corpuscular h emoglobin concentration measurement (mass/volume) 34 g/dL 32-36 Automated erythrocyte distribution width ratio 12. 9 % 10.0- 14.5 Automated blood platelet count (count/volume) 457 10*3/uL 130-400 Automated blood platelet mean volume measurement 9.4 [foz_us] 7.4-10.4 Automated blood neutrophils/100 leukocytes 95 % 42-75 Automated blood lymphocytes/100 leukocytes 3 % 12-44 Blood monocytes/100 leukocytes 2 % 0-12 Automated blood eosinophils/100 leukocytes 0 % 0-10 Automated blood basophils/100 leukocytes 0 % 0-10 Blood neutrophils automated count (number/volume) 13.3 10*3 1.8-7.8 Blood lymphocytes automated count (number/volume) 0.4 10*3 1.0-4.0 Blood monocytes automated count (number/volume) 0. 2 10*3 0.0-1.0 Automated eosinophil count 0.0 10*3/uL 0 .0-0.3 Automated blood basophil count (count/volume) 0.0 10*3/uL 0.0-0.1 Comprehensive metabolic panel - 10/16/18 15:04 Serum or plasma sodium measurement (moles/volume) 141 mmol/L 135-145 Serum or plasma potassium measurement (moles/volume) 4.2 mmol/L 3.6-5.0 Serum or plasma chloride measurement (moles/volume) 114 mmol/L 98-107 Carbon dioxide 13 mmol/L 21-32 Serum or plasma anion gap determination (moles/volume) 14 mmol/L 5-14 Serum or plasma urea nitrogen measurement (mass/volume ) 8 mg/dL 7-18 Serum or plasma creatinine measurement (mass/volume) 0.78 mg/dL 0.60-1.30 Serum or plasma urea nitrogen/creatinine mass ratio 10 NRG Serum or plasma creatinine measurement w ith calculation of estimated glomerular filtration rate > NRG Serum or plasma glucose measurement (mass/volume) 95 mg/dL 70-105 Serum or plasma calcium measurement (mass/volume) 9.0 mg/dL 8.5-10.1 Serum or plasma total bilirubin measurement (mass/volu me) 0.2 mg/dL 0.1-1.0 Serum or plasma alkaline phosphatase jenny surement (enzymatic activity/volume) 40 U/L 40-136 Serum or plasma aspartate aminotransfera se measurement (enzymatic activity/volume) 34 U/L 5-34 Serum or plasma alanine aminotransferase measurement (enzymatic activity/volume) 14 U/L 0-55 Serum or plasma protein measurement (mass/volume) 6.5 g/dL 6.4-8.2 Serum or plasma albumin measurement (mass/volume) 3.5 g/dL 3.2-4.5 CALCIUM CORRECTED 9.4 mg/dL 8.5-10.1 Serum or plasma troponin i.cardiac measu rement (mass/volume) - 10/16/18 15:04 Serum or plasma troponin i.cardiac measurement (mass/v olume) < ng/mL <0.028 Serum or plasma lithium measurement (mol es/volume) - 03/05/19 15:04 BNP level 375.5 pg/mL <100.0 Lipase - 10/16/18 15:04 Lipase < U/L 8-78 THYROID STIMULATING HORMONE - 10/16/18 1 5:04 THYROID STIMULATING HORMONE 0.40 u[iU]/mL 0.35-4.94 Arterial blood gas measurement - 9 15:12 Blood pCO2 31 mm[Hg] 35-45 Blood pO2 40 mm[Hg] 79-93 Arterial blood bicarbonate measurement (moles/volume) 16 mmol/L 23-27 Arterial blood base excess by calculation -9.2 mmo l/L -2.5-2.5 Arterial blood oxygen saturation measurement 73 % 94-100 * Inhaled oxygen flow rate ROOM AIR NRG Arterial blood pH measurement with patient temperature correction 7.32 7.37-7.43 Arterial blood carbon dioxide, total measurement (mole s/volume) 16.5 mmol/L 21.0-31.0 Body site RIGHT RADIAL NRG Assessment of wrist artery patency prior to arterial p uncture POSITIVE NRG Setting of ventilation mode NO NR G Measurement of body temperature 99.5 NRG Complete blood count (CBC) with automate d white blood cell (WBC) differential - 10/17/18 05:40 Blood leukocytes automated count (number/volume) 9.3 10*3/uL 4.3-11.0 Blood erythrocytes automated count (number/volume) 3.42 10*6/uL 4.35-5.85 Venous blood hemoglobin measurement (mass/volume) 10.8 g/dL 11.5-16.0 Blood hematocrit (volume fraction) 32 % 35-52 Automated erythrocyte mean corpuscular volume 92 [ foz_us] 80-99 Automated erythrocyte mean corpuscular h emoglobin (mass per erythrocyte) 32 pg 25-34 Automated erythrocyte mean corpuscular h emoglobin concentration measurement (mass/volume) 34 g/dL 32-36 Automated erythrocyte distribution width ratio 12. 9 % 10.0- 14.5 Automated blood platelet count (count/volume) 351 10*3/uL 130-400 Automated blood platelet mean volume measurement 9.6 [foz_us] 7.4-10.4 Automated blood neutrophils/100 leukocytes 83 % 42-75 Automated blood lymphocytes/100 leukocytes 12 % 12-44 Blood monocytes/100 leukocytes 5 % 0-12 Automated blood eosinophils/100 leukocytes 0 % 0-10 Automated blood basophils/100 leukocytes 0 % 0-10 Blood neutrophils automated count (number/volume) 7.6 10*3 1.8-7.8 Blood lymphocytes automated count (number/volume) 1.1 10*3 1.0-4.0 Blood monocytes automated count (number/volume) 0. 5 10*3 0.0-1.0 Automated eosinophil count 0.0 10*3/uL 0 .0-0.3 Automated blood basophil count (count/volume) 0.0 10*3/uL 0.0-0.1 Comprehensive metabolic panel - 10/17/18 05:40 Serum or plasma sodium measurement (moles/volume) 143 mmol/L 135-145 Serum or plasma potassium measurement (moles/volume) 3.5 mmol/L 3.6-5.0 Serum or plasma chloride measurement (moles/volume) 120 mmol/L 98-107 Carbon dioxide 14 mmol/L 21-32 Serum or plasma anion gap determination (moles/volume) 9 mmol/L 5-14 Serum or plasma urea nitrogen measurement (mass/volume ) 14 mg/dL 7-18 Serum or plasma creatinine measurement (mass/volume) 0.65 mg/dL 0.60-1.30 Serum or plasma urea nitrogen/creatinine mass ratio 22 NRG Serum or plasma creatinine measurement w ith calculation of estimated glomerular filtration rate > NRG Serum or plasma glucose measurement (mass/volume) 104 mg/dL 70-105 Serum or plasma calcium measurement (mass/volume) 9.1 mg/dL 8.5-10.1 Serum or plasma total bilirubin measurement (mass/volu me) 0.2 mg/dL 0.1-1.0 Serum or plasma alkaline phosphatase jenny surement (enzymatic activity/volume) 32 U/L 40-136 Serum or plasma aspartate aminotransfera se measurement (enzymatic activity/volume) 40 U/L 5-34 Serum or plasma alanine aminotransferase measurement (enzymatic activity/volume) 18 U/L 0-55 Serum or plasma protein measurement (mass/volume) 5.9 g/dL 6.4-8.2 Serum or plasma albumin measurement (mass/volume) 3.0 g/dL 3.2-4.5 CALCIUM CORRECTED 9.9 mg/dL 8.5-10.1 Lipid 1996 panel - 10/17/18 05:40 Serum or plasma triglyceride measurement (mass/volume) 79 mg/dL <150 Serum or plasma cholesterol measurement (mass/volume) 97 mg/dL < 200 Serum or plasma cholesterol in HDL measurement (mass/v olume) 28 mg/dL 40-60 Cholesterol in LDL [mass/volume] in serum or plasma by direct assay 37 mg/dL 1-129 Serum or plasma cholesterol in VLDL measurement (mass/ volume) 16 mg/dL 5-40 Blood lactic acid measurement (moles/vol ume) - 10/17/18 14:30 Blood lactic acid measurement (moles/volume) 1.07 mmol/L 0.50-2.00 Complete blood count (CBC) with automate d white blood cell (WBC) differential - 10/17/18 14:30 Blood leukocytes automated count (number/volume) 9.3 10*3/uL 4.3-11.0 Blood erythrocytes automated count (number/volume) 3.36 10*6/uL 4.35-5.85 Venous blood hemoglobin measurement (mass/volume) 10.3 g/dL 11.5-16.0 Blood hematocrit (volume fraction) 32 % 35-52 Automated erythrocyte mean corpuscular volume 94 [ foz_us] 80-99 Automated erythrocyte mean corpuscular h emoglobin (mass per erythrocyte) 31 pg 25-34 Automated erythrocyte mean corpuscular h emoglobin concentration measurement (mass/volume) 33 g/dL 32-36 Automated erythrocyte distribution width ratio 13. 7 % 10.0- 14.5 Automated blood platelet count (count/volume) 404 10*3/uL 130-400 Automated blood platelet mean volume measurement 9.8 [foz_us] 7.4-10.4 Automated blood neutrophils/100 leukocytes 77 % 42-75 Automated blood lymphocytes/100 leukocytes 15 % 12-44 Blood monocytes/100 leukocytes 8 % 0-12 Automated blood eosinophils/100 leukocytes 0 % 0-10 Automated blood basophils/100 leukocytes 0 % 0-10 Blood neutrophils automated count (number/volume) 7.2 10*3 1.8-7.8 Blood lymphocytes automated count (number/volume) 1.4 10*3 1.0-4.0 Blood monocytes automated count (number/volume) 0. 7 10*3 0.0-1.0 Automated eosinophil count 0.0 10*3/uL 0 .0-0.3 Automated blood basophil count (count/volume) 0.0 10*3/uL 0.0-0.1 Comprehensive metabolic panel - 10/17/18 14:30 Serum or plasma sodium measurement (moles/volume) 144 mmol/L 135-145 Serum or plasma potassium measurement (moles/volume) 4.3 mmol/L 3.6-5.0 Serum or plasma chloride measurement (moles/volume) 121 mmol/L 98-107 Carbon dioxide 14 mmol/L 21-32 Serum or plasma anion gap determination (moles/volume) 9 mmol/L 5-14 Serum or plasma urea nitrogen measurement (mass/volume ) 18 mg/dL 7-18 Serum or plasma creatinine measurement (mass/volume) 0.68 mg/dL 0.60-1.30 Serum or plasma urea nitrogen/creatinine mass ratio 26 NRG Serum or plasma creatinine measurement w ith calculation of estimated glomerular filtration rate > NRG Serum or plasma glucose measurement (mass/volume) 102 mg/dL 70-105 Serum or plasma calcium measurement (mass/volume) 9.7 mg/dL 8.5-10.1 Serum or plasma total bilirubin measurement (mass/volu me) 0.2 mg/dL 0.1-1.0 Serum or plasma alkaline phosphatase jenny surement (enzymatic activity/volume) 33 U/L 40-136 Serum or plasma aspartate aminotransfera se measurement (enzymatic activity/volume) 41 U/L 5-34 Serum or plasma alanine aminotransferase measurement (enzymatic activity/volume) 18 U/L 0-55 Serum or plasma protein measurement (mass/volume) 6.3 g/dL 6.4-8.2 Serum or plasma albumin measurement (mass/volume) 3.2 g/dL 3.2-4.5 CALCIUM CORRECTED 10.3 mg/dL 8.5-10.1 Serum or plasma lithium measurement (mol es/volume) - 10/17/18 14:30 BNP level 355.0 pg/mL <100.0 Sputum Gram stain - 10/17/18 15:00 Sputum Gram stain No bacteria seen NRG Bacterial sputum culture - 10/17/18 15:0 0 FREE TEXT EXTERNAL SMALL AMOUNT WITH NR G QUANTITY OF GROWTH Many NRG Bacterial sputum culture YEAST NRG Human immunodeficiency virus (HIV) type 1 and 2 antibody detection - 10/17/18 15:04 Serum HIV 1+2 antibody detection by immunoblot Non-Reactive Non-Reactive Methicillin resistant Staphylococcus aur eus (MRSA) screening culture - 10/18/18 02:45 Methicillin resistant Staphylococcus aureus (MRSA) scr eening culture NEG NRG Complete blood count (CBC) with automate d white blood cell (WBC) differential - 10/18/18 03:37 Blood leukocytes automated count (number/volume) 7.2 10*3/uL 4.3-11.0 Blood erythrocytes automated count (number/volume) 2.89 10*6/uL 4.35-5.85 Venous blood hemoglobin measurement (mass/volume) 8.9 g/dL 11.5-16.0 Blood hematocrit (volume fraction) 28 % 35-52 Automated erythrocyte mean corpuscular volume 96 [ foz_us] 80-99 Automated erythrocyte mean corpuscular h emoglobin (mass per erythrocyte) 31 pg 25-34 Automated erythrocyte mean corpuscular h emoglobin concentration measurement (mass/volume) 32 g/dL 32-36 Automated erythrocyte distribution width ratio 14. 0 % 10.0- 14.5 Automated blood platelet count (count/volume) 305 10*3/uL 130-400 Automated blood platelet mean volume measurement 9.5 [foz_us] 7.4-10.4 Automated blood neutrophils/100 leukocytes 85 % 42-75 Automated blood lymphocytes/100 leukocytes 11 % 12-44 Blood monocytes/100 leukocytes 4 % 0-12 Automated blood eosinophils/100 leukocytes 0 % 0-10 Automated blood basophils/100 leukocytes 0 % 0-10 Blood neutrophils automated count (number/volume) 6.2 10*3 1.8-7.8 Blood lymphocytes automated count (number/volume) 0.8 10*3 1.0-4.0 Blood monocytes automated count (number/volume) 0. 3 10*3 0.0-1.0 Automated eosinophil count 0.0 10*3/uL 0 .0-0.3 Automated blood basophil count (count/volume) 0.0 10*3/uL 0.0-0.1 Arterial blood gas measurement - 9 03:37 Blood pCO2 43 mm[Hg] 35-45 Blood pO2 97 mm[Hg] 79-93 Arterial blood bicarbonate measurement (moles/volume) 17 mmol/L 23-27 Arterial blood base excess by calculation -9.4 mmo l/L -2.5-2.5 Arterial blood oxygen saturation measurement 98 % 94-100 * Inhaled oxygen flow rate 45% NRG Arterial blood pH measurement with patient temperature correction 7.22 7.37-7.43 Arterial blood carbon dioxide, total measurement (mole s/volume) 18.4 mmol/L 21.0-31.0 Body site LEFT ARTLINE NRG Assessment of wrist artery patency prior to arterial p uncture ARTLINE NRG Setting of ventilation mode YES NR G Measurement of body temperature 97.6 NRG Comprehensive metabolic panel - 10/18/18 03:37 Serum or plasma sodium measurement (moles/volume) 146 mmol/L 135-145 Serum or plasma potassium measurement (moles/volume) 3.8 mmol/L 3.6-5.0 Serum or plasma chloride measurement (moles/volume) 122 mmol/L 98-107 Carbon dioxide 15 mmol/L 21-32 Serum or plasma anion gap determination (moles/volume) 9 mmol/L 5-14 Serum or plasma urea nitrogen measurement (mass/volume ) 16 mg/dL 7-18 Serum or plasma creatinine measurement (mass/volume) 0.62 mg/dL 0.60-1.30 Serum or plasma urea nitrogen/creatinine mass ratio 26 NRG Serum or plasma creatinine measurement w ith calculation of estimated glomerular filtration rate > NRG Serum or plasma glucose measurement (mass/volume) 116 mg/dL 70-105 Serum or plasma calcium measurement (mass/volume) 8.3 mg/dL 8.5-10.1 Serum or plasma total bilirubin measurement (mass/volu me) 0.3 mg/dL 0.1-1.0 Serum or plasma alkaline phosphatase jenny surement (enzymatic activity/volume) 30 U/L 40-136 Serum or plasma aspartate aminotransfera se measurement (enzymatic activity/volume) 25 U/L 5-34 Serum or plasma alanine aminotransferase measurement (enzymatic activity/volume) 15 U/L 0-55 Serum or plasma protein measurement (mass/volume) 4.9 g/dL 6.4-8.2 Serum or plasma albumin measurement (mass/volume) 2.5 g/dL 3.2-4.5 CALCIUM CORRECTED 9.5 mg/dL 8.5-10.1 Serum or plasma phosphate measurement (m ass/volume) - 10/18/18 03:37 Serum or plasma phosphate measurement (mass/volume) 2.4 mg/dL 2.3-4.7 Magnesium - 10/18/18 03:37 Magnesium 2.0 mg/dL 1.8-2.4 Serum or plasma triglyceride measurement (mass/volume) - 10/18/18 03:37 Serum or plasma triglyceride measurement (mass/volume) 310 mg/dL <150 Serum or plasma gabapentin measurement ( mass/volume) - 10/18/18 06:30 GABAPENTIN 5.9 % 2.0-20.0 Occult blood panel - gastric fluid - 03/01 15:42 Gastric fluid gastrointestinal hemoglobin detection POSITIVE NEGATIVE Arterial blood gas measurement - 9 23:35 Blood pCO2 43 mm[Hg] 35-45 Blood pO2 50 mm[Hg] 79-93 Arterial blood bicarbonate measurement (moles/volume) 24 mmol/L 23-27 Arterial blood base excess by calculation -0.4 mmo l/L -2.5-2.5 Arterial blood oxygen saturation measurement 82 % 94-100 * Inhaled oxygen flow rate 25% NRG Arterial blood pH measurement with patient temperature correction 7.37 7.37-7.43 Arterial blood carbon dioxide, total measurement (mole s/volume) 25.6 mmol/L 21.0-31.0 Body site RIGHT RADIAL NRG Assessment of wrist artery patency prior to arterial p uncture YES-POS NRG Setting of ventilation mode YES NR G Measurement of body temperature 98.3 NRG Blood lactic acid measurement (moles/vol ume) - 10/18/18 23:35 Blood lactic acid measurement (moles/volume) 1.07 mmol/L 0.50-2.00 Whole blood basic metabolic panel - 03/01 23:35 Serum or plasma sodium measurement (moles/volume) 144 mmol/L 135-145 Serum or plasma potassium measurement (moles/volume) 3.4 mmol/L 3.6-5.0 Serum or plasma chloride measurement (moles/volume) 115 mmol/L 98-107 Carbon dioxide 23 mmol/L 21-32 Serum or plasma anion gap determination (moles/volume) 6 mmol/L 5-14 Serum or plasma urea nitrogen measurement (mass/volume ) 16 mg/dL 7-18 Serum or plasma creatinine measurement (mass/volume) 0.61 mg/dL 0.60-1.30 Serum or plasma urea nitrogen/creatinine mass ratio 26 NRG Serum or plasma creatinine measurement w ith calculation of estimated glomerular filtration rate > NRG Serum or plasma glucose measurement (mass/volume) 187 mg/dL 70-105 Serum or plasma calcium measurement (mass/volume) 8.3 mg/dL 8.5-10.1 Complete blood count (CBC) with automate d white blood cell (WBC) differential - 10/19/18 03:16 Blood leukocytes automated count (number/volume) 8.3 10*3/uL 4.3-11.0 Blood erythrocytes automated count (number/volume) 3.14 10*6/uL 4.35-5.85 Venous blood hemoglobin measurement (mass/volume) 9.6 g/dL 11.5-16.0 Blood hematocrit (volume fraction) 30 % 35-52 Automated erythrocyte mean corpuscular volume 94 [ foz_us] 80-99 Automated erythrocyte mean corpuscular h emoglobin (mass per erythrocyte) 31 pg 25-34 Automated erythrocyte mean corpuscular h emoglobin concentration measurement (mass/volume) 33 g/dL 32-36 Automated erythrocyte distribution width ratio 13. 9 % 10.0- 14.5 Automated blood platelet count (count/volume) 257 10*3/uL 130-400 Automated blood platelet mean volume measurement 9.9 [foz_us] 7.4-10.4 Automated blood neutrophils/100 leukocytes 75 % 42-75 Automated blood lymphocytes/100 leukocytes 18 % 12-44 Blood monocytes/100 leukocytes 7 % 0-12 Automated blood eosinophils/100 leukocytes 0 % 0-10 Automated blood basophils/100 leukocytes 0 % 0-10 Blood neutrophils automated count (number/volume) 6.2 10*3 1.8-7.8 Blood lymphocytes automated count (number/volume) 1.5 10*3 1.0-4.0 Blood monocytes automated count (number/volume) 0. 6 10*3 0.0-1.0 Automated eosinophil count 0.0 10*3/uL 0 .0-0.3 Automated blood basophil count (count/volume) 0.0 10*3/uL 0.0-0.1 Whole blood basic metabolic panel - 04/01 03:16 Serum or plasma sodium measurement (moles/volume) 146 mmol/L 135-145 Serum or plasma potassium measurement (moles/volume) 4.5 mmol/L 3.6-5.0 Serum or plasma chloride measurement (moles/volume) 116 mmol/L 98-107 Carbon dioxide 22 mmol/L 21-32 Serum or plasma anion gap determination (moles/volume) 8 mmol/L 5-14 Serum or plasma urea nitrogen measurement (mass/volume ) 17 mg/dL 7-18 Serum or plasma creatinine measurement (mass/volume) 0.61 mg/dL 0.60-1.30 Serum or plasma urea nitrogen/creatinine mass ratio 28 NRG Serum or plasma creatinine measurement w ith calculation of estimated glomerular filtration rate > NRG Serum or plasma glucose measurement (mass/volume) 152 mg/dL 70-105 Serum or plasma calcium measurement (mass/volume) 8.5 mg/dL 8.5-10.1 Serum or plasma phosphate measurement (m ass/volume) - 10/19/18 03:16 Serum or plasma phosphate measurement (mass/volume) 2.4 mg/dL 2.3-4.7 Magnesium - 10/19/18 03:16 Magnesium 2.1 mg/dL 1.8-2.4 Serum or plasma lithium measurement (mol es/volume) - 10/19/18 03:16 BNP level 578.8 pg/mL <100.0 Arterial blood gas measurement - 9 03:30 Blood pCO2 51 mm[Hg] 35-45 Blood pO2 49 mm[Hg] 79-93 Arterial blood bicarbonate measurement (moles/volume) 25 mmol/L 23-27 Arterial blood base excess by calculation -1.1 mmo l/L -2.5-2.5 Arterial blood oxygen saturation measurement 76 % 94-100 * Inhaled oxygen flow rate 35% NRG Arterial blood pH measurement with patient temperature correction 7.30 7.37-7.43 Arterial blood carbon dioxide, total measurement (mole s/volume) 26.2 mmol/L 21.0-31.0 Body site RIGHT RADIAL NRG Assessment of wrist artery patency prior to arterial p uncture YES-POS NRG Setting of ventilation mode YES NR G Measurement of body temperature 97.7 NRG Automated blood complete blood count (he mogram) panel - 11/26/18 08:20 Blood leukocytes automated count (number/volume) 9.9 10*3/uL 4.3-11.0 Blood erythrocytes automated count (number/volume) 3.06 10*6/uL 4.35-5.85 Venous blood hemoglobin measurement (mass/volume) 9.2 g/dL 11.5-16.0 Blood hematocrit (volume fraction) 28 % 35-52 Automated erythrocyte mean corpuscular volume 92 [ foz_us] 80-99 Automated erythrocyte mean corpuscular h emoglobin (mass per erythrocyte) 30 pg 25-34 Automated erythrocyte mean corpuscular h emoglobin concentration measurement (mass/volume) 33 g/dL 32-36 Automated erythrocyte distribution width ratio 12. 9 % 10.0- 14.5 Automated blood platelet count (count/volume) 398 10*3/uL 130-400 Automated blood platelet mean volume measurement 9.9 [foz_us] 7.4-10.4 Serum or plasma urea nitrogen measuremen t (mass/volume) - 11/26/18 08:20 Serum or plasma urea nitrogen measurement (mass/volume ) 8 mg/dL 7-18 Serum or plasma creatinine measurement ( mass/volume) - 11/26/18 08:20 Serum or plasma creatinine measurement (mass/volume) 0.71 mg/dL 0.60-1.30 Complete blood count (CBC) with automate d white blood cell (WBC) differential - 12/02/18 20:28 Blood leukocytes automated count (number/volume) 10.3 10*3/uL 4.3-11.0 Blood erythrocytes automated count (number/volume) 3.09 10*6/uL 4.35-5.85 Venous blood hemoglobin measurement (mass/volume) 9.2 g/dL 11.5-16.0 Blood hematocrit (volume fraction) 28 % 35-52 Automated erythrocyte mean corpuscular volume 91 [ foz_us] 80-99 Automated erythrocyte mean corpuscular h emoglobin (mass per erythrocyte) 30 pg 25-34 Automated erythrocyte mean corpuscular h emoglobin concentration measurement (mass/volume) 33 g/dL 32-36 Automated erythrocyte distribution width ratio 13. 3 % 10.0- 14.5 Automated blood platelet count (count/volume) 318 10*3/uL 130-400 Automated blood platelet mean volume measurement 8.9 [foz_us] 7.4-10.4 Automated blood neutrophils/100 leukocytes 47 % 42-75 Automated blood lymphocytes/100 leukocytes 35 % 12-44 Blood monocytes/100 leukocytes 11 % 0-12 Automated blood eosinophils/100 leukocytes 7 % 0-10 Automated blood basophils/100 leukocytes 1 % 0-10 Blood neutrophils automated count (number/volume) 4.9 10*3 1.8-7.8 Blood lymphocytes automated count (number/volume) 3.6 10*3 1.0-4.0 Blood monocytes automated count (number/volume) 1. 1 10*3 0.0-1.0 Automated eosinophil count 0.7 10*3/uL 0 .0-0.3 Automated blood basophil count (count/volume) 0.1 10*3/uL 0.0-0.1 Whole blood basic metabolic panel - 11/13 09/01 20:28 Serum or plasma sodium measurement (moles/volume) 141 mmol/L 135-145 Serum or plasma potassium measurement (moles/volume) 3.1 mmol/L 3.6-5.0 Serum or plasma chloride measurement (moles/volume) 111 mmol/L 98-107 Carbon dioxide 17 mmol/L 21-32 Serum or plasma anion gap determination (moles/volume) 13 mmol/L 5-14 Serum or plasma urea nitrogen measurement (mass/volume ) 3 mg/dL 7-18 Serum or plasma creatinine measurement (mass/volume) 0.59 mg/dL 0.60-1.30 Serum or plasma urea nitrogen/creatinine mass ratio 5 NRG Serum or plasma creatinine measurement w ith calculation of estimated glomerular filtration rate > NRG Serum or plasma glucose measurement (mass/volume) 110 mg/dL 70-105 Serum or plasma calcium measurement (mass/volume) 8.9 mg/dL 8.5-10.1 Magnesium - 12/02/18 20:28 Magnesium 1.5 mg/dL 1.8-2.4 Serum or plasma lithium measurement (mol es/volume) - 12/02/18 20:28 BNP level 354.7 pg/mL <100.0 Automated blood complete blood count (he mogram) panel - 12/03/18 08:50 Blood leukocytes automated count (number/volume) 8.9 10*3/uL 4.3-11.0 Blood erythrocytes automated count (number/volume) 3.18 10*6/uL 4.35-5.85 Venous blood hemoglobin measurement (mass/volume) 9.5 g/dL 11.5-16.0 Blood hematocrit (volume fraction) 30 % 35-52 Automated erythrocyte mean corpuscular volume 93 [ foz_us] 80-99 Automated erythrocyte mean corpuscular h emoglobin (mass per erythrocyte) 30 pg 25-34 Automated erythrocyte mean corpuscular h emoglobin concentration measurement (mass/volume) 32 g/dL 32-36 Automated erythrocyte distribution width ratio 13. 6 % 10.0- 14.5 Automated blood platelet count (count/volume) 411 10*3/uL 130-400 Automated blood platelet mean volume measurement 9.1 [foz_us] 7.4-10.4 Whole blood basic metabolic panel - 11/13 10/02 08:50 Serum or plasma sodium measurement (moles/volume) 141 mmol/L 135-145 Serum or plasma potassium measurement (moles/volume) 3.7 mmol/L 3.6-5.0 Serum or plasma chloride measurement (moles/volume) 113 mmol/L 98-107 Carbon dioxide 17 mmol/L 21-32 Serum or plasma anion gap determination (moles/volume) 11 mmol/L 5-14 Serum or plasma urea nitrogen measurement (mass/volume ) 2 mg/dL 7-18 Serum or plasma creatinine measurement (mass/volume) 0.59 mg/dL 0.60-1.30 Serum or plasma urea nitrogen/creatinine mass ratio 3 NRG Serum or plasma creatinine measurement w ith calculation of estimated glomerular filtration rate > NRG Serum or plasma glucose measurement (mass/volume) 124 mg/dL 70-105 Serum or plasma calcium measurement (mass/volume) 9.1 mg/dL 8.5-10.1 Automated blood complete blood count ( mogram) panel - 12/10/18 08:10 Blood leukocytes automated count (number/volume) 11.7 10*3/uL 4.3-11.0 Blood erythrocytes automated count (number/volume) 4.31 10*6/uL 4.35-5.85 Venous blood hemoglobin measurement (mass/volume) 12.6 g/dL 11.5-16.0 Blood hematocrit (volume fraction) 40 % 35-52 Automated erythrocyte mean corpuscular volume 92 [ foz_us] 80-99 Automated erythrocyte mean corpuscular h emoglobin (mass per erythrocyte) 29 pg 25-34 Automated erythrocyte mean corpuscular h emoglobin concentration measurement (mass/volume) 32 g/dL 32-36 Automated erythrocyte distribution width ratio 13. 9 % 10.0- 14.5 Automated blood platelet count (count/volume) 545 10*3/uL 130-400 Automated blood platelet mean volume measurement 9.0 [foz_us] 7.4-10.4 Serum or plasma urea nitrogen measuremen t (mass/volume) - 12/10/18 08:10 Serum or plasma urea nitrogen measurement (mass/volume ) 5 mg/dL 7-18 Serum or plasma creatinine measurement ( mass/volume) - 12/10/18 08:10 Serum or plasma creatinine measurement (mass/volume) 0.68 mg/dL 0.60-1.30 Comprehensive metabolic panel - 12/14/18 08:10 Serum or plasma sodium measurement (moles/volume) 134 mmol/L 135-145 Serum or plasma potassium measurement (moles/volume) 3.5 mmol/L 3.6-5.0 Serum or plasma chloride measurement (moles/volume) 104 mmol/L 98-107 Carbon dioxide 16 mmol/L 21-32 Serum or plasma anion gap determination (moles/volume) 14 mmol/L 5-14 Serum or plasma urea nitrogen measurement (mass/volume ) 11 mg/dL 7-18 Serum or plasma creatinine measurement (mass/volume) 0.70 mg/dL 0.60-1.30 Serum or plasma urea nitrogen/creatinine mass ratio 16 NRG Serum or plasma creatinine measurement w ith calculation of estimated glomerular filtration rate > NRG Serum or plasma glucose measurement (mass/volume) 114 mg/dL 70-105 Serum or plasma calcium measurement (mass/volume) 9.5 mg/dL 8.5-10.1 Serum or plasma total bilirubin measurement (mass/volu me) 0.1 mg/dL 0.1-1.0 Serum or plasma alkaline phosphatase jenny surement (enzymatic activity/volume) 46 U/L 40-136 Serum or plasma aspartate aminotransfera se measurement (enzymatic activity/volume) 18 U/L 5-34 Serum or plasma alanine aminotransferase measurement (enzymatic activity/volume) 14 U/L 0-55 Serum or plasma protein measurement (mass/volume) 7.4 g/dL 6.4-8.2 Serum or plasma albumin measurement (mass/volume) 4.0 g/dL 3.2-4.5 CALCIUM CORRECTED 9.5 mg/dL 8.5-10.1 Complete blood count (CBC) with automate d white blood cell (WBC) differential - 12/17/18 07:48 Blood leukocytes automated count (number/volume) 15.3 10*3/uL 4.3-11.0 Blood erythrocytes automated count (number/volume) 4.27 10*6/uL 4.35-5.85 Venous blood hemoglobin measurement (mass/volume) 12.8 g/dL 11.5-16.0 Blood hematocrit (volume fraction) 38 % 35-52 Automated erythrocyte mean corpuscular volume 90 [ foz_us] 80-99 Automated erythrocyte mean corpuscular h emoglobin (mass per erythrocyte) 30 pg 25-34 Automated erythrocyte mean corpuscular h emoglobin concentration measurement (mass/volume) 33 g/dL 32-36 Automated erythrocyte distribution width ratio 13. 7 % 10.0- 14.5 Automated blood platelet count (count/volume) 566 10*3/uL 130-400 Automated blood platelet mean volume measurement 9.1 [foz_us] 7.4-10.4 Automated blood neutrophils/100 leukocytes 57 % 42-75 Automated blood lymphocytes/100 leukocytes 34 % 12-44 Blood monocytes/100 leukocytes 7 % 0-12 Automated blood eosinophils/100 leukocytes 2 % 0-10 Automated blood basophils/100 leukocytes 1 % 0-10 Blood neutrophils automated count (number/volume) 8.7 10*3 1.8-7.8 Blood lymphocytes automated count (number/volume) 5.2 10*3 1.0-4.0 Blood monocytes automated count (number/volume) 1. 1 10*3 0.0-1.0 Automated eosinophil count 0.3 10*3/uL 0 .0-0.3 Automated blood basophil count (count/volume) 0.1 10*3/uL 0.0-0.1 Comprehensive metabolic panel - 12/17/18 07:48 Serum or plasma sodium measurement (moles/volume) 138 mmol/L 135-145 Serum or plasma potassium measurement (moles/volume) 3.8 mmol/L 3.6-5.0 Serum or plasma chloride measurement (moles/volume) 107 mmol/L 98-107 Carbon dioxide 18 mmol/L 21-32 Serum or plasma anion gap determination (moles/volume) 13 mmol/L 5-14 Serum or plasma urea nitrogen measurement (mass/volume ) 8 mg/dL 7-18 Serum or plasma creatinine measurement (mass/volume) 0.67 mg/dL 0.60-1.30 Serum or plasma urea nitrogen/creatinine mass ratio 12 NRG Serum or plasma creatinine measurement w ith calculation of estimated glomerular filtration rate > NRG Serum or plasma glucose measurement (mass/volume) 97 mg/dL 70-105 Serum or plasma calcium measurement (mass/volume) 10.1 mg/dL 8.5-10.1 Serum or plasma total bilirubin measurement (mass/volu me) 0.2 mg/dL 0.1-1.0 Serum or plasma alkaline phosphatase jenny surement (enzymatic activity/volume) 41 U/L 40-136 Serum or plasma aspartate aminotransfera se measurement (enzymatic activity/volume) 17 U/L 5-34 Serum or plasma alanine aminotransferase measurement (enzymatic activity/volume) 19 U/L 0-55 Serum or plasma protein measurement (mass/volume) 7.5 g/dL 6.4-8.2 Serum or plasma albumin measurement (mass/volume) 4.1 g/dL 3.2-4.5 CALCIUM CORRECTED 10.0 mg/dL 8.5-10.1 Blood manual differential performed dete ction - 12/17/18 07:48 Blood monocytes/100 leukocytes 6 % NRG Manual blood segmented neutrophils/100 leukocytes 54 % NRG Blood band neutrophils/100 leukocytes 0 % NRG Manual blood lymphocytes/100 leukocytes 39 % NRG Manual eosinophils/100 leukocytes in nose 0 % NRG Manual blood basophils/100 leukocytes 1 % NRG Blood erythrocyte morphology finding identification NORMAL NRG VITAMIN D, 25-H - 01/14/19 11:31 VITAMIN D,25-OH,TOTAL,IA 13 ng/mL 30-10 0 Complete blood count (CBC) with automate d white blood cell (WBC) differential - 03/25/19 18:10 Blood leukocytes automated count (number/volume) 36.8 10*3/uL 4.3-11.0 Blood erythrocytes automated count (number/volume) 4.67 10*6/uL 4.35-5.85 Venous blood hemoglobin measurement (mass/volume) 13.8 g/dL 11.5-16.0 Blood hematocrit (volume fraction) 41 % 35-52 Automated erythrocyte mean corpuscular volume 87 [ foz_us] 80-99 Automated erythrocyte mean corpuscular h emoglobin (mass per erythrocyte) 30 pg 25-34 Automated erythrocyte mean corpuscular h emoglobin concentration measurement (mass/volume) 34 g/dL 32-36 Automated erythrocyte distribution width ratio 13. 8 % 10.0- 14.5 Automated blood platelet count (count/volume) 529 10*3/uL 130-400 Automated blood platelet mean volume measurement 9.1 [foz_us] 7.4-10.4 Automated blood neutrophils/100 leukocytes 83 % 42-75 Automated blood lymphocytes/100 leukocytes 10 % 12-44 Blood monocytes/100 leukocytes 7 % 0-12 Automated blood eosinophils/100 leukocytes 1 % 0-10 Automated blood basophils/100 leukocytes 0 % 0-10 Blood neutrophils automated count (number/volume) 30.6 10*3 1.8-7.8 Blood lymphocytes automated count (number/volume) 3.6 10*3 1.0-4.0 Blood monocytes automated count (number/volume) 2. 4 10*3 0.0-1.0 Automated eosinophil count 0.2 10*3/uL 0 .0-0.3 Automated blood basophil count (count/volume) 0.1 10*3/uL 0.0-0.1 Blood lactic acid measurement (moles/vol ume) - 03/25/19 18:10 Blood lactic acid measurement (moles/volume) 1.34 mmol/L 0.50-2.00 Comprehensive metabolic panel - 03/25/19 18:10 Serum or plasma sodium measurement (moles/volume) 137 mmol/L 135-145 Serum or plasma potassium measurement (moles/volume) 4.4 mmol/L 3.6-5.0 Serum or plasma chloride measurement (moles/volume) 104 mmol/L 98-107 Carbon dioxide 22 mmol/L 21-32 Serum or plasma anion gap determination (moles/volume) 11 mmol/L 5-14 Serum or plasma urea nitrogen measurement (mass/volume ) 16 mg/dL 7-18 Serum or plasma creatinine measurement (mass/volume) 0.74 mg/dL 0.60-1.30 Serum or plasma urea nitrogen/creatinine mass ratio 22 NRG Serum or plasma creatinine measurement w ith calculation of estimated glomerular filtration rate > NRG Serum or plasma glucose measurement (mass/volume) 133 mg/dL 70-105 Serum or plasma calcium measurement (mass/volume) 10.2 mg/dL 8.5-10.1 Serum or plasma total bilirubin measurement (mass/volu me) 0.4 mg/dL 0.1-1.0 Serum or plasma alkaline phosphatase jenny surement (enzymatic activity/volume) 41 U/L 40-136 Serum or plasma aspartate aminotransfera se measurement (enzymatic activity/volume) 15 U/L 5-34 Serum or plasma alanine aminotransferase measurement (enzymatic activity/volume) 12 U/L 0-55 Serum or plasma protein measurement (mass/volume) 8.1 g/dL 6.4-8.2 Serum or plasma albumin measurement (mass/volume) 4.3 g/dL 3.2-4.5 CALCIUM CORRECTED 10.0 mg/dL 8.5-10.1 PT panel in platelet poor plasma by coag ulation assay - 03/25/19 18:10 Prothrombin time (PT) in platelet poor plasma by coagu lation assay 12.6 s 12.2-14.7 INR in platelet poor plasma or blood by coagulation as say 0.9 0.8-1.4 Activated partial thromboplastin time (a PTT) in platelet poor plasma bycoagulation assay - 03/25/19 18:10 Activated partial thromboplastin time (a PTT) in platelet poor plasma bycoagulation assay 32 s 24-35 Manual absolute plasma cell count - 03/14 10/02 18:10 Blood monocytes/100 leukocytes 1 % NRG Manual blood segmented neutrophils/100 leukocytes 87 % NRG Blood band neutrophils/100 leukocytes 1 % NRG Manual blood lymphocytes/100 leukocytes 8 % NRG Manual eosinophils/100 leukocytes in nose 2 % NRG Manual blood basophils/100 leukocytes 0 % NRG Blood lymphocytes variant/100 leukocytes 1 % NRG Blood toxic granules detection by light microscopy 1+ NRG Serum or plasma troponin i.cardiac measu rement (mass/volume) - 03/25/19 18:10 Serum or plasma troponin i.cardiac measurement (mass/v olume) < ng/mL <0.028 Bacterial blood culture - 03/25/19 18:10 Bacterial blood culture NG NRG Bacterial blood culture - 03/25/19 18:30 Bacterial blood culture NG NRG Complete urinalysis with reflex to cultu re - 03/25/19 22:15 Urine color determination YELLOW NRG Urine clarity determination CLEAR NR G Urine pH measurement by test strip 7 5-9 Specific gravity of urine by test strip 1.005 1.016-1.022 Urine protein assay by test strip, semi-quantitative NEGATIVE NEGATIVE Urine glucose detection by automated test strip NE GATIVE NEGATIVE Erythrocytes detection in urine sediment by light micr oscopy NEGATIVE NEGATIVE Urine ketones detection by automated test strip NE GATIVE NEGATIVE Urine nitrite detection by test strip NEGATIVE NEGATIVE Urine total bilirubin detection by test strip NEGA TIVE NEGATIVE Urine urobilinogen measurement by automated test strip (mass/volume) NORMAL NORMAL Urine leukocyte esterase detection by dipstick NEG ATIVE NEGATIVE Automated urine sediment erythrocyte cou nt by microscopy (number/high power field) NONE NRG Automated urine sediment leukocyte count by microscopy (number/high power field) NONE NRG Bacteria detection in urine sediment by light microsco py TRACE NRG Squamous epithelial cells detection in u rine sediment by light microscopy 2-5 NRG Crystals detection in urine sediment by light microsco py NONE NRG Casts detection in urine sediment by light microscopy NONE NRG Mucus detection in urine sediment by light microscopy NEGATIVE NRG Complete urinalysis with reflex to culture CULTURE PENDING NRG Bacterial urine culture - 03/25/19 22:15 Bacterial urine culture 3 OR MORE NRG COLONY COUNT 10,000 CFU/ML NRG FTX;REPORTABLE GRAM POSITIVES, SUGGESTING PROBABLE NRG FREE TEXT ENTRY 2 COLLECTION CONTAMINATION WITH SK IN CHELSEY NRG FREE TEXT ENTRY 3 NO SUSCEPTIBILITY PERFORMED NRG Complete blood count (CBC) with automate d white blood cell (WBC) differential - 03/26/19 05:15 Blood leukocytes automated count (number/volume) 28.4 10*3/uL 4.3-11.0 Blood erythrocytes automated count (number/volume) 4.01 10*6/uL 4.35-5.85 Venous blood hemoglobin measurement (mass/volume) 11.8 g/dL 11.5-16.0 Blood hematocrit (volume fraction) 36 % 35-52 Automated erythrocyte mean corpuscular volume 89 [ foz_us] 80-99 Automated erythrocyte mean corpuscular h emoglobin (mass per erythrocyte) 29 pg 25-34 Automated erythrocyte mean corpuscular h emoglobin concentration measurement (mass/volume) 33 g/dL 32-36 Automated erythrocyte distribution width ratio 13. 8 % 10.0- 14.5 Automated blood platelet count (count/volume) 441 10*3/uL 130-400 Automated blood platelet mean volume measurement 9.5 [foz_us] 7.4-10.4 Automated blood neutrophils/100 leukocytes 83 % 42-75 Automated blood lymphocytes/100 leukocytes 11 % 12-44 Blood monocytes/100 leukocytes 5 % 0-12 Automated blood eosinophils/100 leukocytes 1 % 0-10 Automated blood basophils/100 leukocytes 0 % 0-10 Blood neutrophils automated count (number/volume) 23.5 10*3 1.8-7.8 Blood lymphocytes automated count (number/volume) 3.0 10*3 1.0-4.0 Blood monocytes automated count (number/volume) 1. 5 10*3 0.0-1.0 Automated eosinophil count 0.2 10*3/uL 0 .0-0.3 Automated blood basophil count (count/volume) 0.1 10*3/uL 0.0-0.1 Comprehensive metabolic panel - 03/26/19 05:15 Serum or plasma sodium measurement (moles/volume) 142 mmol/L 135-145 Serum or plasma potassium measurement (moles/volume) 4.2 mmol/L 3.6-5.0 Serum or plasma chloride measurement (moles/volume) 112 mmol/L 98-107 Carbon dioxide 19 mmol/L 21-32 Serum or plasma anion gap determination (moles/volume) 11 mmol/L 5-14 Serum or plasma urea nitrogen measurement (mass/volume ) 12 mg/dL 7-18 Serum or plasma creatinine measurement (mass/volume) 0.62 mg/dL 0.60-1.30 Serum or plasma urea nitrogen/creatinine mass ratio 19 NRG Serum or plasma creatinine measurement w ith calculation of estimated glomerular filtration rate > NRG Serum or plasma glucose measurement (mass/volume) 108 mg/dL 70-105 Serum or plasma calcium measurement (mass/volume) 9.1 mg/dL 8.5-10.1 Serum or plasma total bilirubin measurement (mass/volu me) 0.5 mg/dL 0.1-1.0 Serum or plasma alkaline phosphatase jenny surement (enzymatic activity/volume) 38 U/L 40-136 Serum or plasma aspartate aminotransfera se measurement (enzymatic activity/volume) 9 U/L 5-34 Serum or plasma alanine aminotransferase measurement (enzymatic activity/volume) 10 U/L 0-55 Serum or plasma protein measurement (mass/volume) 6.1 g/dL 6.4-8.2 Serum or plasma albumin measurement (mass/volume) 3.2 g/dL 3.2-4.5 CALCIUM CORRECTED 9.7 mg/dL 8.5-10.1 Serum or plasma troponin i.cardiac measu rement (mass/volume) - 03/26/19 05:15 Serum or plasma troponin i.cardiac measurement (mass/v olume) < ng/mL <0.028 Complete blood count (CBC) with automate d white blood cell (WBC) differential - 03/27/19 05:10 Blood leukocytes automated count (number/volume) 18.9 10*3/uL 4.3-11.0 Blood erythrocytes automated count (number/volume) 3.92 10*6/uL 4.35-5.85 Venous blood hemoglobin measurement (mass/volume) 11.7 g/dL 11.5-16.0 Blood hematocrit (volume fraction) 35 % 35-52 Automated erythrocyte mean corpuscular volume 90 [ foz_us] 80-99 Automated erythrocyte mean corpuscular h emoglobin (mass per erythrocyte) 30 pg 25-34 Automated erythrocyte mean corpuscular h emoglobin concentration measurement (mass/volume) 33 g/dL 32-36 Automated erythrocyte distribution width ratio 13. 6 % 10.0- 14.5 Automated blood platelet count (count/volume) 404 10*3/uL 130-400 Automated blood platelet mean volume measurement 9.7 [foz_us] 7.4-10.4 Automated blood neutrophils/100 leukocytes 81 % 42-75 Automated blood lymphocytes/100 leukocytes 12 % 12-44 Blood monocytes/100 leukocytes 5 % 0-12 Automated blood eosinophils/100 leukocytes 1 % 0-10 Automated blood basophils/100 leukocytes 0 % 0-10 Blood neutrophils automated count (number/volume) 15.3 10*3 1.8-7.8 Blood lymphocytes automated count (number/volume) 2.3 10*3 1.0-4.0 Blood monocytes automated count (number/volume) 1. 0 10*3 0.0-1.0 Automated eosinophil count 0.2 10*3/uL 0 .0-0.3 Automated blood basophil count (count/volume) 0.1 10*3/uL 0.0-0.1 Comprehensive metabolic panel - 03/27/19 05:10 Serum or plasma sodium measurement (moles/volume) 140 mmol/L 135-145 Serum or plasma potassium measurement (moles/volume) 4.4 mmol/L 3.6-5.0 Serum or plasma chloride measurement (moles/volume) 111 mmol/L 98-107 Carbon dioxide 21 mmol/L 21-32 Serum or plasma anion gap determination (moles/volume) 8 mmol/L 5-14 Serum or plasma urea nitrogen measurement (mass/volume ) 11 mg/dL 7-18 Serum or plasma creatinine measurement (mass/volume) 0.62 mg/dL 0.60-1.30 Serum or plasma urea nitrogen/creatinine mass ratio 18 NRG Serum or plasma creatinine measurement w ith calculation of estimated glomerular filtration rate > NRG Serum or plasma glucose measurement (mass/volume) 108 mg/dL 70-105 Serum or plasma calcium measurement (mass/volume) 9.4 mg/dL 8.5-10.1 Serum or plasma total bilirubin measurement (mass/volu me) 0.1 mg/dL 0.1-1.0 Serum or plasma alkaline phosphatase jenny surement (enzymatic activity/volume) 33 U/L 40-136 Serum or plasma aspartate aminotransfera se measurement (enzymatic activity/volume) 19 U/L 5-34 Serum or plasma alanine aminotransferase measurement (enzymatic activity/volume) 11 U/L 0-55 Serum or plasma protein measurement (mass/volume) 6.3 g/dL 6.4-8.2 Serum or plasma albumin measurement (mass/volume) 3.3 g/dL 3.2-4.5 CALCIUM CORRECTED 10.0 mg/dL 8.5-10.1 Serum or plasma lithium measurement (mol es/volume) - 03/27/19 05:10 BNP PT 142.7 pg/mL <100.0 D-DIMER - 07/31/19 18:14 D-DIMER, QUANTITATIVE 0.44 mcg/mL FEU <0 .50 Encounters ACCT No. Visit Date/Time Discharge Status Pt. Type Provider Facility Loc./Unit Complaint [id number] 07/31/2019 18:00:00 07/31/2019 23:59: 59 [id number] 07/31/2019 18:00:00 Document Registration [id number] 01/14/2019 12:00:00 Document Registration [id number] 07/17/2019 16:26:00 12/04/2 019 16:58:00 DIS Emergency JASON RLOON ACUTE CARE PHYSICIAN [facility] ER LOWER BACK PAIN [id number] 06/25/2019 10:01:00 23:59:59 CLS Outpatient LAUREN BAIRD [facility] RAD CERVICAL NEURITIS [id number] 03/25/2019 22:13:00 12:20:00 DIS Inpatient ANGELITO ABERNATHY SARABJIT Rouse ia [facility] 4TH PNEUMONIA,CP [id number] 03/14/2019 09:17:00 23:59:59 CLS Outpatient DAMON RAYMOND, MARLENE Cuenca (DDU) [facility] RT EMPHYSEMA [id number] 01/28/2019 08:45:00 23:59:59 CLS Emergency SARAH BETH RAYMOND, CHANDRIKA Rhodes [facility] ER LOWER BACK PAIN [id number] 12/21/2018 07:40:00 07:50:00 DIS Outpatient KAMRON RAYMOND, VENKAT Rodriguez [facility] SDC SEPSIS INFECTION [id number] 12/19/2018 13:25:00 23:59:59 CLS Outpatient WINSOME RAYMOND, RICHARDSON Hood [facility] RAD BRAIN ABSCESS [id number] 12/02/2018 19:55:00 21:21:00 DIS Emergency JASON ROLON ACUTE CARE PHYSICIAN [facility] ER LEG SWELLING,INFECTED F EEDING TUBE [id number] 11/26/2018 10:29:00 12:25:00 DIS Emergency KARTHIK RAYMOND, DAREN Villegas [facility] ER PAIN AROUND FEE DING TUBE,DRAINAGE [id number] 10/16/2018 10:33:00 21:00:00 DIS Inpatient PHANI RAYMOND, NINA Cronin [facility] ICU BILATERAL PNA [id number] 10/10/2018 13:50:00 23:59:59 CLS Outpatient MOHIT ESPINO MD [facility] WOUNDCARE [id number] 10/03/2018 14:41:00 23:59:59 CLS Outpatient MOHIT ESPINO MD [facility] WOUNDCARE [id number] 09/26/2018 14:52:00 23:59:59 CLS Outpatient MOHIT ESPINO MD [facility] WOUNDCARE [id number] 09/26/2018 14:46:00 23:59:59 CLS Outpatient MOHIT ESPINO MD [facility] LAB NON PRESSURE CHRONIC UL CER [id number] 09/24/2018 09:45:00 23:59:59 CLS Preadmit PERLA GOLDEN APRN [facility] RT SOB,COPD,EMPHYS BRIAN LUNG [id number] 09/23/2018 19:10:00 21:59:00 DIS Emergency LATONIA BOUCHER DO [facility] ER CHEST PAIN, SOB [id number] 09/19/2018 13:14:00 23:59:59 CLS Outpatient MOHIT ESPINO MD [facility] WOUNDCARE [id number] 09/17/2018 12:17:00 23:59:59 CLS Outpatient MOHIT ESPINO MD [facility] RAD ATHEROSCLEROSIS LT LEG [id number] 09/14/2018 11:13:00 23:59:59 CLS Outpatient MOHIT ESPINO MD [facility] CARD NON PRESSURE CHRONIC UL CER OF LT CALF [id number] 09/14/2018 08:03:00 23:59:59 CLS Outpatient MOHIT ESPINO MD [facility] WOUNDCARE [id number] 09/07/2018 13:42:00 15:05:00 DIS Emergency JASON ROLON APRN [facility] ER LEG INFECTION [id number] 09/06/2018 10:15:00 13:41:00 DIS Emergency JASON ROLON APRN [facility] ER SOB [id number] 08/23/2018 04:07:00 019 07:00:00 DIS Emergency LATONIA BOUCHER DO [facility] ER FALL AT HOME,CHARLEY RODRIGEZ [id number] 08/07/2018 04:39:00 019 14:10:00 DIS Inpatient SARABJIT EATON DO, V [facility] 4TH CHF,PULMONARY EDEMA,PNE UMONIA,S/P [place],4 VESSEL CABG [id number] 08/05/2018 02:40:00 018 13:00:00 DIS Inpatient TRAV RAYMOND, CHANDRIKA Villegas [facility] 4TH FEVER;INFECTION IN STIT AREA [id number] 02/07/2018 16:54:00 018 23:59:59 CLS Preadmit TAI ROLON APRN [facility] RAD NECK PAIN [id number] 12/06/2017 07:57:00 018 23:59:59 CLS Outpatient ALEE BRIGHT DO [facility] RAD CALCIFIC TENDON ITIS RT SHOULDER [id number] 11/24/2017 12:54:00 018 13:36:00 DIS Outpatient MAULIK COLLIER MD [facility] REHAB R SHOULDER PAIN;CALCIF IC TENDINITIS;NECK PAIN [id number] 10/23/2017 08:15:00 018 23:59:59 CLS Preadmit PERLA GOLDEN APRN [facility] PULM COPD [id number] 07/24/2017 08:08:00 018 00:01:00 DIS Outpatient PERLA GOLDEN APRN [facility] PULM COPD [id number] 10/18/2017 09:51:00 018 23:59:59 CLS Outpatient TIA ROLON APRN [facility] RAD M25.511 [id number] 06/22/2017 10:28:00 23:59:59 CLS Outpatient TIA ROLON APRN [facility] RAD SCREENING [id number] 06/12/2017 10:59:00 017 23:59:59 CLS Preadmit LAUREN BAIRD [facility] RAD DEGENERATIVE DISC DISEA SE [id number] 06/02/2017 13:40:00 017 23:59:59 CLS Outpatient PERLA GOLDEN APRN [facility] RT COPD [id number] 05/19/2017 03:54:00 017 18:50:00 DIS Inpatient CHRIS RAYMOND, JENNY Nguyễn [facility] ICU COPD EXACERBATION,POSS PNEUMONIA,HYPOTENSION,SEPSI [id number] 05/01/2017 11:06:00 017 23:59:59 CLS Outpatient LAUREN BAIRD [facility] RAD M54.41 [id number] 01/18/2017 23:22:00 017 00:13:00 DIS Emergency DAREN ANGELES MD [facility] ER PUNCTURE WOUND LEFT FOOT,RT THIGH RT SHOULDER PA [id number] 01/10/2017 08:39:00 017 23:59:59 CLS Outpatient ANASTASIA TEJEDA MD [facility] RAD PNEUMONIA RML FU [id number] 12/12/2016 19:52:00 017 10:00:00 DIS Inpatient ANASTASIA TEJEDA MD [facility] 4TH RML PNEUMONIA, SEPSIS [id number] 11/13/2016 16:44:00 017 18:55:00 DIS Emergency ESTEBAN URIARTE [facility] ER DENTAL PAIN [id number] 10/13/2016 11:38:00 017 23:59:59 CLS Outpatient ANASTASIA TEJEDA MD [facility] RAD CERVICAL NECK PAIN [id number] 10/07/2016 02:22:00 017 03:54:00 DIS Emergency DAREN ANGELES MD [facility] ER PAIN AT BASE OF SKULL DOWN NECK [id number] 05/08/2015 11:37:00 015 13:30:00 DIS Emergency SYDNEY ALVARADO, ESTEBAN Becker [facility] ER RIGHT HIP PAIN
[2019-08-12] MEDS ORDERED: TRM50T PO (15:55)
== END 2019-07-17 16:58 | disposition home or self-care (01) ==
LOC: EDUNIT# 16:25 → ER 16:26
DX: M54.16 Radiculopathy, lumbar region (principal); J44.9 Chronic obstructive pulmonary disease, unspecified; I10 Essential (primary) hypertension; I25.10 Atherosclerotic heart disease of native coronary artery without angina pectoris; I25.2 Old myocardial infarction; E78.00 Pure hypercholesterolemia, unspecified; F41.9 Anxiety disorder, unspecified; F32.9 Major depressive disorder, single episode, unspecified; Z90.710 Acquired absence of both cervix and uterus; Z95.1 Presence of aortocoronary bypass graft; Z82.49 Family history of ischemic heart disease and other diseases of the circulatory system
CPT/HCPCS: 96372; 99284

== ENCOUNTER 2019-08-12 14:14 | Emergency (ER) | payer BC, MEDICAID ==
[~2019-08-12] VITALS: Ht 157 cm; Wt 55.0 kg
[~2019-08-12 14:14] MED LIST changes: +DOXY100T19 PO; -DOXY100T31 PO; +MAGN400T6 PO; -MAGN400T8 PO; +METO-370 PO; +METO-387 PO; -METO50TA7 PO; -MTP25TSR PO; +TRAM50TA2 PO; -TRM50T PO
[2019-08-12] MEDS ORDERED: PRD20T PO (15:55)
[2019-08-12] MEDS ORDERED: TRAM50TA2 PO (15:55)
--- NOTE | 2019-08-12 15:55 | ED Upper Extremity ---
General Chief Complaint: Upper Extremity Stated Complaint: L SHOULDER AND NECK PAIN Nursing Triage Note: Pt ambulates to triage with c/o left shoulder/arm/neck pain since 0300 this am. Pt reports previous Hx of neck issues. Pt took 2 doses of gabapentin and ibuprofen this morning without any relief. Nursing Sepsis Screen: No Definite Risk History of Present Illness Date Seen by Provider: Aug 12, 2019 Time Seen by Provider: 14:50 Initial Comments 58-year-old female presents for chronic neck and left shoulder pain. She reports that it acutely worse over the last 2 days. She denies any injuries. She denies chest pain, dyspnea or cough Onset: this morning Pain/Injury Location: left shoulder, left arm Method of Injury: unknown Modifying Factors: Improves With Immobilization, Improves With Rest Allergies and Home Medications Allergies Coded Allergies: No Known Drug Allergies (Unverified , 08/23/18) Home Medications Atorvastatin Calcium 20 Mg Tablet, 40 MG PO HS, (Reported) LAST RECEIVED FROM REPOSITORY #90 12-05-18 Cefdinir 300 Mg Capsule, 300 MG PO BID Prescribed by: SARABJIT EATON on 03/27/19 1050 Cyanocobalamin (Vitamin B-12) 1,000 Mcg Tablet, 1,000 MCG PO DAILY, (Reported) Diclofenac Sodium 75 Mg Tablet.dr, 75 MG PO BID PRN for ARTHRITIS PAIN, (Reported) Ergocalciferol (Vitamin D2) 50,000 Unit Capsule, 50,000 UNIT PO Fr, (Reported) Folic Acid 0.8 Mg Tablet, 0.8 MG PO DAILY, (Reported) Gabapentin 800 Mg Tablet, 800 MG PO QID, (Reported) Hydrocodone Bit/Acetaminophen 1 Tab Tab, 1 TAB PO Q4-6HR PRN for PAIN-MODERATE Prescribed by: SARABJIT EATON on 03/27/19 1050 Lisinopril 5 Mg Tablet, 5 MG PO DAILY, (Reported) LAST RECEIVED FROM REPOSITORY 12-05-18 #90 Melatonin 5 Mg Capsule, 5 MG PO HS PRN for SLEEP, (Reported) Metoprolol Succinate 25 Mg Tab.er.24h, 25 MG PO DAILY, (Reported) Ondansetron HCl 4 Mg Tab, 8 MG PO BID PRN for NAUSEA/VOMITING-1ST LINE, (Reported) TAKES 2 (4MG) TABLETS Prednisone 20 Mg Tab, 60 MG PO DAILY Prescribed by: WAYLON DAWSON on 08/12/19 1555 Ropinirole HCl 2 Mg Tab.er.24h, 2 MG PO 1900, (Reported) Sertraline HCl 50 Mg Tablet, 50 MG PO DAILY, (Reported) LAST FILLED #30 02-21-19 Tizanidine HCl 4 Mg Tablet, 4 MG PO TID PRN for MUSCLE SPASMS, (Reported) Tramadol HCl 50 Mg Tablet, 50 MG PO Q8H PRN for PAIN Prescribed by: WAYLON DAWSON on 08/12/19 1555 Patient Home Medication List Home Medication List Reviewed: Yes Review of Systems Constitutional: no symptoms reported, chills Musculoskeletal: see HPI, neck pain (radiating to left shoulder and upper arm) All Other Systems Reviewed Negative Unless Noted: Yes Past Tcmmmoh-Tajcrz-Oyyetu Hx Past Med/Social Hx: Reviewed Nursing Past Med/Soc Hx Patient Social History Alcohol Use: Denies Use Recreational Drug Use: No Smoking Status: Current Everyday Smoker Type Used: Cigarettes Former Smoker, Quit: Jul 22, 2018 2nd Hand Smoke Exposure: Yes Recent Foreign Travel: No Contact w/Someone Who Travel: No Recent Infectious Disease Expo: No Recent Hopitalizations: Yes (11/30- ARDS) Physical Abuse: No Sexual Abuse: No Mistreated: No Fear: No Immunizations Up To Date Tetanus Booster (TDap): Unknown PED Vaccines UTD: Yes Date of Pneumonia Vaccine: Jul 17, 2017 Date of Influenza Vaccine: Aug 03, 2018 Seasonal Allergies Seasonal Allergies: No Past Medical History Surgeries: Yes (CARPAL TUNNEL, OPEN HEART-4 VESSEL CABG 07/30/18) Abdominal, Cardiac, CABG, Hysterectomy, Oophorectomy, Open Heart Surgery, Orthopedic, Vascular Surgery Respiratory: Yes Asthma, Pneumonia, COPD Currently Using CPAP: No Currently Using BIPAP: No Cardiac: Yes (ID 07/2018 WITH 4 VESSEL CABG 07/30/18) Coronary Artery Disease, Heart Attack, High Cholesterol, Hypertension Neurological: No 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 Genitourinary: No Gastrointestinal: No Musculoskeletal: Yes (PSORIATIC ARTHRITIS) Degenerate Disk Disease, Arthritis, Chronic Back Pain Endocrine: No HEENT: Yes (EDENTULOUS, R mastoid bone removed) Cancer: No Psychosocial: No Anxiety, Depression Integumentary: Yes (POST OP WOUND INFECTION TO LEGS POST CABG) Psoriasis Blood Disorders: Yes (POST OP ANEMIA 07/2018--4 UNITS OF BLOOD POST OP) Adverse Reaction/Blood Tranf: No Family Medical History Diabetes, Hypertension Physical Exam Vital Signs Vital Signs - First Documented 08/12/19 14:33 Temp 36.8 Pulse 111 Resp 20 B/P (MAP) 133/60 (84) Pulse Ox 99 O2 Delivery Room Air Capillary Refill : Less Than 3 Seconds Height, Weight, BMI Height: 5'1.00" Weight: 114lbs. 6.0oz. 51.112164is; 22.00 BMI Method:Stated General Appearance: WD/WN, mild distress (secondary to pain) Neck: normal inspection, limited range of motion, tender lateral (left trapezius), other (neurovascular status intact right upper extremity symmetric with the left) Cardiovascular: normal peripheral pulses, regular rate, rhythm Respiratory: chest non-tender, lungs clear, normal breath sounds Gastrointestinal: normal bowel sounds, non tender, soft Shoulder: normal inspection, no evidence of injury, normal ROM Neurologic/Psychiatric: no motor/sensory deficits, alert, normal mood/affect, oriented x 3 Skin: normal color, warm/dry Procedures/Interventions Date of ETT Placement: Oct 17, 2018 Time of ETT Placement: 1441 Progress/Results/Core Measures Results/Orders My Orders Orders - WAYLON DAWSON Tramadol Tablet (Ultram Tablet) (08/12/19 15:00) Medications Given in ED Current Medications Medications Dose Ordered Sig/Lance Route Start Time Stop Time Status Last Admin Dose Admin Tramadol HCl 50 mg ONCE ONCE PO 08/12/19 15:00 08/12/19 15:01 DC 08/12/19 15:11 50 MG Vital Signs/I&O 08/12/19 08/12/19 14:33 15:58 Temp 36.8 36.8 Pulse 111 111 Resp 20 20 B/P (MAP) 133/60 (84) 128/72 (84) Pulse Ox 99 99 O2 Delivery Room Air Blood Pressure Mean: 84 Departure Impression Primary Impression: Cervical radiculopathy Additional Impression: Trapezius strain Qualified Codes: S46.812A - Strain of other muscles, fascia and tendons at shoulder and upper arm level, left arm, initial encounter Disposition: HOME, SELF-CARE Condition: Improved Departure-Patient Inst. Decision time for Depature: 15:45 Referrals: [facility] (PCP) Primary Care Physician LAUREN BAIRD (Family) Primary Care Physician Patient Instructions: Radiculopathy (DC), Cervical Muscle Strain (DC) Add. Discharge Instructions: Alternate heat and ice to your neck and left shoulder. Continue to take your home medications as prescribed. Take the prednisone as directed. Follow-up at [facility] walk-in clinic or with your primary care provider if symptoms are not improving or worsen. Return to the emergency department for new, urgent health care needs. All discharge instructions reviewed with patient and/or family. Voiced understanding. Scripts Tramadol HCl (Tramadol HCl) 50 Mg Tablet 50 MG PO Q8H PRN for PAIN, #20 TAB 0 Refills Prov: WAYLON DAWSON 08/12/19 Prednisone (Prednisone) 20 Mg Tab 60 MG PO DAILY, #9 TAB 0 Refills Prov: WAYLON DAWSON 08/12/19 WAYLON DAWSON Aug 12, 2019 15:55
[2019-08-12 15:58] VITALS: BP 128/72
== END 2019-08-12 15:58 | disposition home or self-care (01) ==
LOC: EDUNIT# 14:14 → ER 14:14
DX: S29.012A Strain of muscle and tendon of back wall of thorax, initial encounter (principal); M54.12 Radiculopathy, cervical region; J44.9 Chronic obstructive pulmonary disease, unspecified; I10 Essential (primary) hypertension; E78.00 Pure hypercholesterolemia, unspecified; I25.2 Old myocardial infarction; I25.10 Atherosclerotic heart disease of native coronary artery without angina pectoris; F41.9 Anxiety disorder, unspecified; F32.9 Major depressive disorder, single episode, unspecified; F17.210 Nicotine dependence, cigarettes, uncomplicated; Z90.710 Acquired absence of both cervix and uterus; Z95.1 Presence of aortocoronary bypass graft; Z82.49 Family history of ischemic heart disease and other diseases of the circulatory system; X58.XXXA Exposure to other specified factors, initial encounter
CPT/HCPCS: 99283

== ENCOUNTER → 2019-09-10 | Outpatient (CLI) | payer BC, MEDICAID ==
[~2019-09-10] MED LIST changes: -DOXY100T19 PO; +DOXY100T31 PO; -MAGN400T6 PO; +MAGN400T8 PO; -METO-370 PO; -METO-387 PO; +METO50TA7 PO; +MTP25TSR PO; -TRAM50TA2 PO; +TRM50T PO
--- NOTE | 2019-09-10 16:11 | Diagnostic Imaging Report ---
PROCEDURE: MRI lumbar spine. TECHNIQUE: Multiplanar, multisequence MRI of the lumbar spine was performed without contrast. INDICATION: Chronic back pain. FINDINGS: The previous MRI lumbar spine exam of 05/01/2017 noted [id number] neural foraminal stenosis at L5-S1 on the left. The interval CT lumbar spine exam of 08/23/2018 also noted degenerative changes involving the spine but failed to show any evidence for an acute abnormality. On this exam there is again fairly severe neural foraminal narrowing on the left at L5-S1. This finding is essentially no different than on the prior exam. There is still no evidence for central stenosis at this level. At the L4-L5 level there is a disc bulge centrally. The disc flattens the ventral aspect of the thecal sac and narrows the AP diameter to 11.9 mm. There is also mild neural foraminal narrowing bilaterally. These degenerative changes seem similar to the prior exam. There is still no evidence for spinal stenosis or neural foraminal narrowing at L1-L2, L2-L3 or L3-L4. There is no abnormal signal arising from the cord or the vertebral bodies to indicate an acute abnormality. There is no sign of a paraspinal mass. IMPRESSION: 1. The degenerative disc and bony disease at the L5-S1 and at L4-L5 seen previously do not appear to have progressed. There is still fairly severe narrowing of the neural foramen on the left at L5-S1. There is no evidence for central stenosis at either L4-L5 or L5-S1. 2. The other degenerative changes involving the lumbar spine seen previously have not progressed. 3. There is no sign of an acute bony abnormality or of a cord lesion. Dictated by: Dictated on workstation # [id number]
== END ==
LOC: RAD 15:10
PROVIDERS: ATTEND Nurse Practitioner Community Health
DX: M51.37 Other intervertebral disc degeneration, lumbosacral region (principal); M47.26 Other spondylosis with radiculopathy, lumbar region
CPT/HCPCS: 72148

== ENCOUNTER 2019-12-28 16:17 | Emergency (ER) | payer BC, MEDICAID ==
[~2019-12-28] VITALS: Ht 157 cm; Wt 58.0 kg
--- NOTE | 2019-12-28 16:25 | ED Fall/Injury ---
General Stated Complaint: L ARM / TAILBONE PAIN Source: patient Exam Limitations: no limitations History of Present Illness Date Seen by Provider: December 28, 2019 Time Seen by Provider: 16:23 Initial Comments To ER with reports of a fall at home. She was up on a chair grabbing something off a shelf when she fell. Now has left wrist pain and deformity, tailbone pain. She did hit the back of her head on the floor. Occurred: just prior to arrival Severity: moderate Injuries/Pain Location: upper extremity Context: slipped Loss of Consciousness: no loss of consciousness Associated Symptoms (Fall): Denies Symptoms Allergies and Home Medications Allergies Coded Allergies: No Known Drug Allergies (Unverified , 08/23/18) Home Medications Atorvastatin Calcium 20 Mg Tablet, 40 MG PO HS, (Reported) LAST RECEIVED FROM REPOSITORY #90 12-05-18 Cefdinir 300 Mg Capsule, 300 MG PO BID Prescribed by: SARABJIT EATON on 03/27/19 1050 Cyanocobalamin (Vitamin B-12) 1,000 Mcg Tablet, 1,000 MCG PO DAILY, (Reported) Diclofenac Sodium 75 Mg Tablet.dr, 75 MG PO BID PRN for ARTHRITIS PAIN, (Reported) Ergocalciferol (Vitamin D2) 50,000 Unit Capsule, 50,000 UNIT PO Fr, (Reported) Folic Acid 0.8 Mg Tablet, 0.8 MG PO DAILY, (Reported) Gabapentin 800 Mg Tablet, 800 MG PO QID, (Reported) Hydrocodone Bit/Acetaminophen 1 Tab Tab, 1 TAB PO Q4-6HR PRN for PAIN-MODERATE Prescribed by: SARABJIT EATON on 03/27/19 1050 Lisinopril 5 Mg Tablet, 5 MG PO DAILY, (Reported) LAST RECEIVED FROM REPOSITORY 12-05-18 #90 Melatonin 5 Mg Capsule, 5 MG PO HS PRN for SLEEP, (Reported) Metoprolol Succinate 25 Mg Tab.er.24h, 25 MG PO DAILY, (Reported) Ondansetron HCl 4 Mg Tab, 8 MG PO BID PRN for NAUSEA/VOMITING-1ST LINE, (Reported) TAKES 2 (4MG) TABLETS Oxycodone HCl/Acetaminophen 1 Each Tablet, 1 EACH PO Q4H PRN for PAIN-MODERATE Prescribed by: JASON ROLON on 12/28/19 1702 Prednisone 20 Mg Tab, 60 MG PO DAILY Prescribed by: WAYLON DAWSON on 08/12/19 1555 Ropinirole HCl 2 Mg Tab.er.24h, 2 MG PO 1900, (Reported) Sertraline HCl 50 Mg Tablet, 50 MG PO DAILY, (Reported) LAST FILLED #30 02-21-19 Tizanidine HCl 4 Mg Tablet, 4 MG PO TID PRN for MUSCLE SPASMS, (Reported) Tramadol HCl 50 Mg Tablet, 50 MG PO Q8H PRN for PAIN Prescribed by: WAYLON DAWSON on 08/12/19 1555 Patient Home Medication List Home Medication List Reviewed: Yes Review of Systems Review of Systems Constitutional: see HPI Eyes: No Symptoms Reported Ears, Nose, Mouth, Throat: no symptoms reported Respiratory: no symptoms reported Cardiovascular: no symptoms reported Genitourinary: no symptoms reported Musculoskeletal: see HPI Skin: no symptoms reported Psychiatric/Neurological: No Symptoms Reported Past Ejamuvi-Rcynok-Cjltpm Hx Patient Social History Type Used: Cigarettes Former Smoker, Quit: Jul 22, 2018 2nd Hand Smoke Exposure: Yes Recent Foreign Travel: No Contact w/Someone Who Travel: No Recent Hopitalizations: Yes (11/30- ARDS) Immunizations Up To Date Tetanus Booster (TDap): Unknown PED Vaccines UTD: Yes Date of Pneumonia Vaccine: Jul 17, 2017 Date of Influenza Vaccine: Aug 03, 2018 Seasonal Allergies Seasonal Allergies: No Past Medical History Surgeries: Yes (CARPAL TUNNEL, OPEN HEART-4 VESSEL CABG 07/30/18) Abdominal, Cardiac, CABG, Hysterectomy, Oophorectomy, Open Heart Surgery, Orthopedic, Vascular Surgery Respiratory: Yes Asthma, Pneumonia, COPD Currently Using CPAP: No Currently Using BIPAP: No Cardiac: Yes ([place] 07/2018 WITH 4 VESSEL CABG 07/30/18) Coronary Artery Disease, Heart Attack, High Cholesterol, Hypertension Neurological: No Female 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 Disorders: Denies [employer] History: Hysterectomy Genitourinary: No Gastrointestinal: No Musculoskeletal: Yes (PSORIATIC ARTHRITIS) Degenerate Disk Disease, Arthritis, Chronic Back Pain Endocrine: No HEENT: Yes (EDENTULOUS, R mastoid bone removed) Cancer: No Psychosocial: No Anxiety, Depression Integumentary: Yes (POST OP WOUND INFECTION TO LEGS POST CABG) Psoriasis Blood Disorders: Yes (POST OP ANEMIA 07/2018--4 UNITS OF BLOOD POST OP) Adverse Reaction/Blood Tranf: No Family Medical History Diabetes, Hypertension Physical Exam Vital Signs Vital Signs - First Documented 12/28/19 16:20 Temp 36.7 Pulse 104 Resp 18 B/P (MAP) 168/88 (114) Pulse Ox 95 Capillary Refill : Height, Weight, BMI Height: 5'1.00" Weight: 114lbs. 6.0oz. 51.069645ov; 22.00 BMI Method:Stated General Appearance: WD/WN, no apparent distress Neck: non-tender, full range of motion Respiratory: no respiratory distress, no accessory muscle use Gastrointestinal: normal bowel sounds, non tender Extremities: other (deformity of the left wrist.) Neurologic/Psychiatric: alert, normal mood/affect, oriented x 3 Skin: normal color, warm/dry Daily Coma Score Best Eye Response: (4) Open Spontaneously Best Verbal Response: (5) Oriented Best Motor Response: (6) Obeys Commands [place] Total: 15 Procedures/Interventions Date of ETT Placement: Oct 17, 2018 Time of ETT Placement: 1441 Progress/Results/Core Measures Results/Orders My Orders Orders - JASON ROLON APRN Wrist, Left, 3 Views Or More (12/28/19 16:22) Ct Head/Cervical Spine Wo (12/28/19 16:22) Sacrum And Coccyx (12/28/19 16:22) Oxycodone/Apap 5/325mg Tablet (Percocet (12/28/19 17:15) Vital Signs/I&O 12/28/19 16:20 Temp 36.7 Pulse 104 Resp 18 B/P (MAP) 168/88 (114) Pulse Ox 95 Departure Communication (Admissions) Splinted in a sugar tong style splint using 3 inch Ortho-Glass. Remains neurovascularly intact at the fingertips. Impression Primary Impression: Wrist fracture Qualified Codes: S62.102A - Fracture of unspecified carpal bone, left wrist, initial encounter for closed fracture Additional Impression: Coccyx contusion Qualified Codes: S30.0XXA - Contusion of lower back and pelvis, initial encounter Disposition: 01 HOME, SELF-CARE Condition: Stable Departure-Patient Inst. Decision time for Depature: 16:54 Referrals: [facility]/ (PCP) Primary Care Physician LAUREN BAIRD (Family) Primary Care Physician SHERIDAN AMBROCIO MD, MICHAEL P MD Patient Instructions: Contusion (DC), Wrist Fracture (DC) Add. Discharge Instructions: 1. Return to ER for any concerns 2. Follow-up with your doctor next week 3. Call the orthopedics surgeons listed make an appointment to be seen for follow-up. Scripts Oxycodone HCl/Acetaminophen (Oxycodone-Acetaminophen 5-325) 1 Each Tablet 1 EACH PO Q4H PRN for PAIN-MODERATE MDD 6 for 3 Days, #20 TAB 0 Refills Prov: JASON ROLON APRN 12/28/19 JASON ROLON APRN December 28, 2019 16:25
--- NOTE | 2019-12-28 16:55 | Diagnostic Imaging Report ---
PROCEDURE: CT head and CT cervical spine without contrast. TECHNIQUE: Multiple contiguous axial images were obtained through the brain and cervical spine without the use of intravenous contrast. Sagittal and coronal reformations through the cervical spine were then performed. Auto Exposure Controls were utilized during the CT exam to meet ALARA standards for radiation dose reduction. INDICATION: Fall, head and neck trauma. COMPARISON: None. FINDINGS: CT head: Ventricles are normal in size, shape and position. There is no midline shift or mass effect. There is no extra-axial fluid collection. There is no focus of acute ischemia. Please note the skull base was not imaged. Consider follow-up. Limited evaluation of the cervical spine at the craniocervical junction demonstrates no obvious abnormality. There is no skull fracture. IMPRESSION: Limited CT of the head. Skull base was not imaged. No obvious acute intracranial abnormality is seen. CT cervical spine: Alignment is normal. There is no subluxation or fracture. Mild degenerative changes are seen throughout the disc spaces and facet joints. There is no osseous lesion. Soft tissues are unremarkable. IMPRESSION: 1. No traumatic malalignment or fracture. 2. Not mentioned above, carotid artery calcifications. Dictated by: Dictated on workstation # [id number]
--- NOTE | 2019-12-28 16:59 | Diagnostic Imaging Report ---
INDICATION: Left arm pain. COMPARISON: None. EXAMINATION: Three views of the left wrist were obtained. FINDINGS: Comminuted displaced intra-articular fracture of the distal radius. There is an ulnar styloid fracture. Carpal bones appear intact. IMPRESSION: Distal radius and ulnar fractures. Dictated by: Dictated on workstation # [id number]
--- NOTE | 2019-12-28 17:00 | Diagnostic Imaging Report ---
INDICATION: Fall, pelvic and sacral pain. COMPARISON: None. EXAMINATION: Three views of the sacrum and coccyx were obtained. FINDINGS: Normal alignment. No fracture or osseous lesion is identified. The SI joints are symmetric. IMPRESSION: Negative sacrum and coccyx. Dictated by: Dictated on workstation # [id number]
[2019-12-28] MEDS ORDERED: OXYC-471 PO (17:01)
[2019-12-28] MEDS ORDERED: oxyCODONE/APAP 5/325MG (PERCOCET 5) TABLET PO ONE (17:15)
[2019-12-28 17:20] VITALS: BP 168/88
== END 2019-12-28 17:20 | disposition home or self-care (01) ==
LOC: EDUNIT# 16:17 → ER 16:18
DX: S62.102A Fracture of unspecified carpal bone, left wrist, initial encounter for closed fracture (principal); S30.0XXA Contusion of lower back and pelvis, initial encounter; I10 Essential (primary) hypertension; I25.2 Old myocardial infarction; I25.10 Atherosclerotic heart disease of native coronary artery without angina pectoris; E78.00 Pure hypercholesterolemia, unspecified; J44.9 Chronic obstructive pulmonary disease, unspecified; F41.9 Anxiety disorder, unspecified; F32.9 Major depressive disorder, single episode, unspecified; D64.9 Anemia, unspecified; Z79.52 Long term (current) use of systemic steroids; Z87.891 Personal history of nicotine dependence; Z77.22 Contact with and (suspected) exposure to environmental tobacco smoke (acute) (chronic); Z95.1 Presence of aortocoronary bypass graft; W07.XXXA Fall from chair, initial encounter; Y92.009 Unspecified place in unspecified non-institutional (private) residence as the place of occurrence of the external cause
CPT/HCPCS: 29125; 70450; 72125; 72220; 73110

== ENCOUNTER → 2020-04-14 | Outpatient (CLI) | payer MEDICAID ==
--- NOTE | 2020-04-14 12:48 | Diagnostic Imaging Report ---
INDICATION: Postmenopausal screening for osteoporosis. COMPARISON: None. FINDINGS: AP Spine L1-L4: [BMD (g/cm2): 1.059] [T-Score: -1.2] [Z-Score: 0.2] [BMD Previous: NA] [BMD % Change: NA] LT Hip Neck: [BMD (g/cm2): 0.890] [T-Score: -1.1] [Z-Score: 0.3] LT Hip Total: [BMD (g/cm2):0.905] [T-Score:-0.8] [Z-Score: 0.2] [BMD Previous: NA] [BMD % Change: NA] RT Hip Neck: [BMD (g/cm2):0.897] [T-Score:-1.0] [Z-Score:0.3] RT Hip Total: [BMD (g/cm2):0.922] [T-score:-0.7] [Z-Score:0.4] [BMD Previous:NA] [BMD % Change:NA] *Indicates significant change from prior examination based on 95% confidence level. World Health Organization criteria for BMD interpretation classify patients as Normal (T-score at or above -1.0), Osteopenic (T-score between -1.0 and -2.5) or Osteoporotic (T-score at or below -2.5). LIMITATIONS AND MODIFICATION: None. FRACTURE RISK (FRAX SCORE): The ten year probability of (%): Major Osteoporotic Fracture: [NA] Hip Fracture: [NA] IMPRESSION: 1. Normal bone mineral density. 2. Baseline examination. 3. See below National Osteoporosis Foundation guidelines on when to potentially initiate pharmacologic therapy. Based on the National Osteoporosis Foundation Guidelines, pharmacologic treatment should be initiated in any of the following, unless clinical conditions suggest otherwise: * Any patient with prior fragility fracture of the hip or vertebrae. A spine fracture indicates 5X risk for subsequent spine fracture and 2X risk for subsequent hip fracture. * Osteoporosis (T-score <-2.5). * Postmenopausal women and men age 50 and older with low bone mass/osteopenia (T-score between -1.0 and -2.5) by DXA and 10-year major osteoporotic fracture greater than 20% or a 10-year probability of hip fracture greater than 3%. These fracture risks are supplied above in the FRAX score, if applicable. * Clinician judgement and/or patient preferences may indicate treatment for people with 10-year fracture probabilities above or below these levels. Dictated by: Dictated on workstation # [id number]
== END ==
LOC: RAD 11:00
PROVIDERS: ATTEND Nurse Practitioner Community Health
DX: Z13.820 Encounter for screening for osteoporosis (principal); S30.0XXA Contusion of lower back and pelvis, initial encounter; Z78.0 Asymptomatic menopausal state; X58.XXXA Exposure to other specified factors, initial encounter
CPT/HCPCS: 77080

== ENCOUNTER 2020-06-26 07:08 | Inpatient (IN) | payer MEDICAID ==
[~2020-06-26] VITALS: Ht 157 cm; Wt 59.8 kg
[~2020-06-26 07:08] MED LIST changes: -AMIO200T4 PO; +AMIO200T6 PO
[2020-06-26] MEDS ORDERED: LACTATED RINGERS 1,000 ML IV ONE (07:40)
[2020-06-26] MEDS ORDERED: NS IV 500 ML 500 ML IV ONE (07:40)
[2020-06-26 07:42] LABS: ABG BASE EXCESS 0.7 MMOL/L (-2.5-2.5); ABG OXYGEN SATURATION 94 % (94-100); ABG PCO2 42 MMHG (35-45); ABG PO2 76 MMHG (79-93)
[2020-06-26 07:44] LABS: ALLENS TEST YES-POS; INSPIRED O2 RA; PATIENT TEMP 39.7; VENTILATOR NO
[2020-06-26] MEDS ORDERED: AZITHROMYCIN INJECTION 500 MG in NS (IVPB) 250 ML IV ONE (07:45)
[2020-06-26] MEDS ORDERED: cefTRIAXone FOR IV USE 1,000 MG in WATER (STERILE) FOR INJECTION 10 ML IV ONE (07:45)
--- NOTE | 2020-06-26 07:47 | ED Respiratory ---
General Chief Complaint: Cough/Cold/Flu Symptoms Stated Complaint: FEVER Source: patient Exam Limitations: no limitations History of Present Illness Date Seen by Provider: Jun 26, 2020 Time Seen by Provider: 07:18 Initial Comments Patient presents to the ER by private conveyance with her spouse and chief complaint of a week of congestion cough nonproductive and now fever today 102. She received some Tylenol unknown dose about an hour prior to arrival. She does have a history of COPD previous tracheostomy and coronary artery bypass graft 2018. She still smokes about a pack a day. She does not routinely follow with a doctor except for Dr. Ky Murray she says because of economics. She used to follow with Dr. Cuevas for cardiology. She's not on a blood thinner. She does take a statin some heart medicines. She's also noticed some new redness and pain in her left lower extremity anteriorly today. She feels mildly short of breath and does not rely on oxygen at baseline. 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 She's not having any nausea she is having general body aches. She did denies knowing any known sick contacts she's been in contact with. No diarrhea or vomiting. History of paroxysmal atrial fibrillation, COPD, hypertension, hyperlipidemia, tobaccoism, CHF with a compensated systolic dysfunction, CABG 4 vessel in July 2018. Echocardi[address] Mckenzie: EF of 60-65% with normal wall thickness and mild to moderate tricuspid regurgitation. Allergies and Home Medications Allergies Coded Allergies: No Known Drug Allergies (Unverified , 08/23/18) Home Medications Atorvastatin Calcium 20 Mg Tablet, 40 MG PO HS, (Reported) LAST RECEIVED FROM REPOSITORY #90 12-05-18 Cefdinir 300 Mg Capsule, 300 MG PO BID Prescribed by: SARABJIT EATON on 03/27/19 1050 Cyanocobalamin (Vitamin B-12) 1,000 Mcg Tablet, 1,000 MCG PO DAILY, (Reported) Diclofenac Sodium 75 Mg Tablet.dr, 75 MG PO BID PRN for ARTHRITIS PAIN, (Reported) Ergocalciferol (Vitamin D2) 50,000 Unit Capsule, 50,000 UNIT PO Fr, (Reported) Folic Acid 0.8 Mg Tablet, 0.8 MG PO DAILY, (Reported) Gabapentin 800 Mg Tablet, 800 MG PO QID, (Reported) Hydrocodone Bit/Acetaminophen 1 Tab Tab, 1 TAB PO Q4-6HR PRN for PAIN-MODERATE Prescribed by: SARABJIT EATON on 03/27/19 1050 Lisinopril 5 Mg Tablet, 5 MG PO DAILY, (Reported) LAST RECEIVED FROM REPOSITORY 12-05-18 #90 Melatonin 5 Mg Capsule, 5 MG PO HS PRN for SLEEP, (Reported) Metoprolol Succinate 25 Mg Tab.er.24h, 25 MG PO DAILY, (Reported) Ondansetron HCl 4 Mg Tab, 8 MG PO BID PRN for NAUSEA/VOMITING-1ST LINE, (Reported) TAKES 2 (4MG) TABLETS Oxycodone HCl/Acetaminophen 1 Each Tablet, 1 EACH PO Q4H PRN for PAIN-MODERATE Prescribed by: JASON ROLON on 12/28/19 170 Prednisone 20 Mg Tab, 60 MG PO DAILY Prescribed by: WAYLON DAWSON on 08/12/19 1555 Ropinirole HCl 2 Mg Tab.er.24h, 2 MG PO 1900, (Reported) Sertraline HCl 50 Mg Tablet, 50 MG PO DAILY, (Reported) LAST FILLED #30 02-21-19 Tizanidine HCl 4 Mg Tablet, 4 MG PO TID PRN for MUSCLE SPASMS, (Reported) Tramadol HCl 50 Mg Tablet, 50 MG PO Q8H PRN for PAIN Prescribed by: WAYLON DAWSON on 08/12/19 1555 Patient Home Medication List Home Medication List Reviewed: Yes Review of Systems Review of Systems Constitutional: chills; No diaphoresis; fever, malaise, weakness (generalized) EENTM: No ear discharge, No ear pain Respiratory: see HPI, cough; No phlegm; short of breath; No wheezing Cardiovascular: No chest pain, No edema; Hx of Intervention; No palpitations, No syncope Gastrointestinal: No abdominal pain, No constipation, No nausea Genitourinary: No discharge, No dysuria Musculoskeletal: No back pain, No joint pain Skin: No pruritus, No rash Psychiatric/Neurological: Denies Headache, Denies Numbness All Other Systems Reviewed Negative Unless Noted: Yes Past Ehxgfwv-Nsyctm-Bpbdvm Hx Patient Social History Alcohol Use: Denies Use Recreational Drug Use: No Smoking Status: Current Everyday Smoker Type Used: Cigarettes 2nd Hand Smoke Exposure: Yes Recent Hopitalizations: No (11/30- ) Immunizations Up To Date Tetanus Booster (TDap): Unknown PED Vaccines UTD: Yes Date of Pneumonia Vaccine: Jul 17, 2017 Date of Influenza Vaccine: Aug 03, 2018 Seasonal Allergies Seasonal Allergies: No Past Medical History Surgeries: Yes (CARPAL TUNNEL, OPEN HEART-4 VESSEL CABG 07/30/18) Abdominal, Cardiac, CABG, Hysterectomy, Oophorectomy, Open Heart Surgery, Orthopedic, Vascular Surgery Respiratory: Yes Asthma, Pneumonia, COPD Currently Using CPAP: No Currently Using BIPAP: No Cardiac: Yes (IA 07/2018 WITH 4 VESSEL CABG 07/30/18) Coronary Artery Disease, Heart Attack, High Cholesterol, Hypertension Neurological: No Female 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 Disorders: Denies 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 Genitourinary: No Gastrointestinal: No Musculoskeletal: Yes (PSORIATIC ARTHRITIS) Degenerate Disk Disease, Arthritis, Chronic Back Pain Endocrine: No HEENT: Yes (EDENTULOUS, R mastoid bone removed) Cancer: No Psychosocial: No Anxiety, Depression Integumentary: Yes (POST OP WOUND INFECTION TO LEGS POST CABG) Psoriasis Blood Disorders: Yes (POST OP ANEMIA 07/2018--4 UNITS OF BLOOD POST OP) Adverse Reaction/Blood Tranf: No Family Medical History Diabetes, Hypertension Physical Exam Vital Signs - First Documented 06/26/20 07:15 Temp 38.0 Pulse 124 Resp 24 B/P (MAP) 133/76 (95) Pulse Ox 94 O2 Delivery Nasal Cannula O2 Flow Rate 2.00 Capillary Refill : Height: 5'1.00" Weight: 114lbs. 6.0oz. 51.261800oz; 23.00 BMI Method:Stated General Appearance: WD/WN, mild distress Eyes: Bilateral Eye Normal Inspection, Bilateral Eye PERRL, Bilateral Eye EOMI HEENT: PERRL/EOMI; No pharynx normal (oropharynx is mildly dry) Neck: full range of motion, normal inspection Respiratory: no accessory muscle use, respiratory distress (mild with an oxygen sat of 92% on room air), crackles (right base); No wheezing Cardiovascular: normal peripheral pulses, regular rate, rhythm Gastrointestinal: normal bowel sounds, soft, no organomegaly; No guarding, No rebound; tenderness (generalized all 4 quadrants, mild without rebound or guarding) Extremities: normal range of motion, normal capillary refill, other (erythema to the anterior left lower extremity over the anterior tibia) Neurologic/Psychiatric: alert, normal mood/affect, oriented x 3 Skin: rash (rubor, calor, dolor left lower leg.) Focused Exam Lactate Level 06/26/20 07:39: Lactic Acid Level 1.96 Lactic Acid Level Laboratory Tests Test 06/26/20 07:39 Lactic Acid Level 1.96 MMOL/L (0.50-2.00) Procedures/Interventions Lumen: triple Central Line Procedure: betadine prep (chlorhexidine), sterile drapes applied, sterile dressing applied Position: internal jugular (R) Anesthesia: Lidocaine Volume Anesthetic (ccs): 3 Complications: none Post Position: sutured, good blood return, position confirmed w/ CXR Risks, benefits and alternatives were discussed with the patient and she consented to the procedure. She was positioned in the usual format and using the usual sterile garment and drapes the patient was dressed out. The skin was thoroughly cleaned with the supplied chlorhexidine prep. After the prep and dried a sterile drape was placed. The 20 cm 7 Croatian triple-lumen catheter was flushed with sterile saline. We used ultrasound guidance to pass the introducer needle into the right internal jugular without difficulty. A guidewire was placed easily without difficulty. No ectopy was seen on the monitor. The supplied 11 blade scalpel was used to make a 2 mm incision at the inferior portion of the introducer needle. The introducer needle was replaced with the dilator. The dilator was taken out and the patient had the central lumen of the triple lumen catheter threaded over the guidewire and placed at 13 cm. The guidewire was removed and the triple-lumen catheter was stitched in place using the supplied braided stitch at 2 different points. The catheter withdrew blood and flushed easily. A sterile dressing was placed over the catheter. The patient tolerated the procedure well. A chest x-ray was obtained that demonstrated no pneumothorax and a new interval central catheter over the shadow of the right internal jugular down the superior vena cava and terminating just proximal to the right atria. Date of ETT Placement: Oct 17, 2018 Time of ETT Placement: 1441 Progress/Results/Core Measures Suspected Sepsis SIRS Temperature: Pulse: Respiratory Rate: Laboratory Tests 06/26/20 07:39: White Blood Count 30.6*H Blood Pressure / Mean: 06/26/20 07:39: Lactic Acid Level 1.96 Laboratory Tests 06/26/20 07:39: Creatinine 0.77, INR Comment 0.9, Platelet Count 397, Total Bilirubin 0.4 Results/Orders Lab Results Laboratory Tests Test 06/26/20 07:35 06/26/20 07:39 06/26/20 09:23 Range/Units Blood Gas Puncture Site RT RAD Blood Gas Patient Temperature 39.7 Arterial Blood pH 7.40 7.37-7.43 Arterial Blood Partial Pressure CO2 42 35-45 MMHG Arterial Blood Partial Pressure O2 76 L 79-93 MMHG Arterial Blood HCO3 25 23-27 MMOL/L Arterial Blood Total CO2 26.0 21.0-31.0 MMOL/L Arterial Blood Oxygen Saturation 94 94-100 % Arterial Blood Base Excess 0.7 -2.5-2.5 MMOL/L Dwight Test YES-POS Blood Gas Ventilator Setting NO Blood Gas Inspired Oxygen RA Coronavirus 2018 (NORY) Negative Negative White Blood Count 30.6 *H 4.3-11.0 10^3/uL Red Blood Count 4.95 3.80-5.11 10^6/uL Hemoglobin 15.0 11.5-16.0 g/dL Hematocrit 45 35-52 % Mean Corpuscular Volume 91 80-99 fL Mean Corpuscular Hemoglobin 30 25-34 pg Mean Corpuscular Hemoglobin Concent 33 32-36 g/dL Red Cell Distribution Width 12.9 10.0-14.5 % Platelet Count 397 130-400 10^3/uL Mean Platelet Volume 9.1 9.0-12.2 fL Immature Granulocyte % (Auto) 1 % Neutrophils (%) (Auto) 91 H 42-75 % Lymphocytes (%) (Auto) 4 L 12-44 % Monocytes (%) (Auto) 4 0-12 % Eosinophils (%) (Auto) 0 0-10 % Basophils (%) (Auto) 1 0-10 % Neutrophils # (Auto) 27.8 H 1.8-7.8 10^3/uL Lymphocytes # (Auto) 1.1 1.0-4.0 10^3/uL Monocytes # (Auto) 1.1 H 0.0-1.0 10^3/uL Eosinophils # (Auto) 0.1 0.0-0.3 10^3/uL Basophils # (Auto) 0.2 H 0.0-0.1 10^3/uL Immature Granulocyte # (Auto) 0.4 H 0.0-0.1 10^3/uL Neutrophils % (Manual) 77 % Lymphocytes % (Manual) 4 % Monocytes % (Manual) 3 % Eosinophils % (Manual) 1 % Basophils % (Manual) 0 % Band Neutrophils 15 % Blood Morphology Comment NORMAL Prothrombin Time 12.8 12.2-14.7 SEC INR Comment 0.9 0.8-1.4 Activated Partial Thromboplast Time 32 24-35 SEC D-Dimer 0.41 0.00-0.49 UG/ML Sodium Level 134 L 135-145 MMOL/L Potassium Level 4.4 3.6-5.0 MMOL/L Chloride Level 97 L 98-107 MMOL/L Carbon Dioxide Level 23 21-32 MMOL/L Anion Gap 14 5-14 MMOL/L Blood Urea Nitrogen 9 7-18 MG/DL Creatinine 0.77 0.60-1.30 MG/DL Estimat Glomerular Filtration Rate > 60 BUN/Creatinine Ratio 12 Glucose Level 134 H 70-105 MG/DL Lactic Acid Level 1.96 0.50-2.00 MMOL/L Calcium Level 9.9 8.5-10.1 MG/DL Corrected Calcium 9.6 8.5-10.1 MG/DL Total Bilirubin 0.4 0.1-1.0 MG/DL Aspartate Amino Transf (AST/SGOT) 22 5-34 U/L Alanine Aminotransferase (ALT/SGPT) 17 0-55 U/L Alkaline Phosphatase 47 40-136 U/L C-Reactive Protein High Sensitivity 5.39 H 0.00-0.50 MG/DL Total Protein 8.3 H 6.4-8.2 GM/DL Albumin 4.4 3.2-4.5 GM/DL Procalcitonin 0.37 H <0.10 NG/ML Micro Results Microbiology 06/26/20 Influenza Types A,B Antigen (MARCY) - Final, Complete My Orders Orders - LYDIA POOLE Arterial Blood Gas (06/26/20 07:35) Cbc With Automated Diff (06/26/20 07:40) Comprehensive Metabolic Panel (06/26/20 07:40) Blood Culture (06/26/20 07:40) Sputum Culture (06/26/20 07:40) Urinalysis (06/26/20 07:40) Urine Culture (06/26/20 07:40) Protime With Inr (06/26/20 07:40) Partial Thromboplastin Time (06/26/20 07:40) Chest 1 View, Ap/Pa Only (06/26/20 07:40) Ed Iv/Invasive Line Start (06/26/20 07:40) Ed Iv/Invasive Line Start (06/26/20 07:40) Vital Signs Adult Sepsis Patie Q15M (06/26/20 07:40) O2 (06/26/20 07:40) Remove Rings In Anticipation O (06/26/20 07:40) Lactic Acid Analyzer (06/26/20 07:40) Lactated Ringers (Lr 1000 Ml Iv Solution (06/26/20 07:40) Ceftriaxone For Iv Use (Rocephin For I (06/26/20 07:45) Azithromycin Injection (Zithromax Inject (06/26/20 07:45) Ns Iv 500 Ml (Sodium Chloride 0.9%) (06/26/20 07:40) Procalcitonin (Pct) (06/26/20 07:40) Fibrin Degradation Products (06/26/20 07:40) Hs C Reactive Protein (06/26/20 07:40) Covid 19 Inhouse Test (06/26/20 07:40) Influenza A And B Antigens (06/26/20 07:40) Hydrocodone/Apap 5/325 Tablet (Lortab 5 (06/26/20 08:00) Manual Differential (06/26/20 07:39) Cefepime Injection (Maxipime Injection) (06/26/20 08:15) Vancomycin Injection (Vancomycin Injecti (06/26/20 08:15) Lactated Ringers (Lr 1000 Ml Iv Solution (06/26/20 08:15) Chest 1 View, Ap/Pa Only (06/26/20 09:13) Coronavirus Sars-Cov-2 So 2018 (06/26/20 09:30) Vancomycin Injection (Vancomycin Injecti (06/26/20 10:00) Medications Given in ED Current Medications Medications Dose Ordered Sig/Lance Route Start Time Stop Time Status Last Admin Dose Admin Acetaminophen/ Hydrocodone Bitart 1 tab ONCE ONCE PO 06/26/20 08:00 06/26/20 08:01 DC 06/26/20 08:00 1 TAB Cefepime HCl 1000 mg/Sterile Water 10 ml @ 200 mls/hr ONCE ONCE IV 06/26/20 08:15 06/26/20 08:17 DC 06/26/20 08:33 200 MLS/HR Lactated Ringer's 1,000 ml @ 0 mls/hr Q0M ONCE IV 06/26/20 07:40 06/26/20 07:47 DC 06/26/20 08:18 1,000 MLS/HR Vancomycin HCl 750 mg/Sodium Chloride 100 ml @ 100 mls/hr ONCE ONCE IV 06/26/20 08:15 06/26/20 09:14 DC 06/26/20 09:19 100 MLS/HR Vital Signs/I&O 06/26/20 06/26/20 06/26/20 07:15 07:15 07:35 Temp 38.0 Pulse 124 Resp 24 B/P (MAP) 133/76 (95) Pulse Ox 94 97 O2 Delivery Nasal Cannula Nasal Cannula O2 Flow Rate 2.00 2.00 Capillary Refill : Progress Note : Time: 08:01 Progress Note Maybe a blush of cellulitis in her left lower extremity and she has crackles on her right lower lung base. No wheezing. ABG shows some relative mild hypoxia. Suspect she has a pneumonia but does not appear to be having COPD exacerbation. We will not be giving steroids or albuterol at this time. We did give 1500 cc which is greater than 20 mL/kg of IV fluids. We are getting influenza and COVID swabs. She received Tylenol for she came but still complains of body aches. With her coronary history and set up giving NSAIDs will skip her a hydrocodone tablet. Her Rocephin and azithromycin for presumed community-acquired pneumonia. 2 L of oxygen by nasal cannula brings her up to 97%. On presentation she had a decent blood pressure. However her repeat blood pressures were not is good so we repositioned the cuff to the other arm after getting an 80/60 and got a 99/72. We discussed the risks, benefits and alternatives to doing a central line and she agreed. We also will obtain a full 30 mL/kg of fluids by giving her 2 liters of lactated ringer and we switched her Rocephin/azithromycin for cefepime and 1250 mg of vancomycin. Diagnostic Imaging Diagonstic Imaging: Xray Plain Films/CT/US/NM/MRI: chest (1v) Comments No acute cardiopulmonary process on one view chest x-ray. [facility] [place], [place] NAME: ETELVINA ALONSO [facility] REC#: [id number] PT STATUS: REG ER : 1960 PHYSICIAN: LYDIA POOLE MD ADMIT DATE: 06/26/20/ER Draft Date of Exam:06/26/20 CHEST 1 VIEW, AP/PA ONLY INDICATION: Sepsis, cough, congestion, flulike symptoms. Exam compared 03/26/2019. FINDINGS: Sternal wires midline. Heart size stable and right greater than left perihilar as well as medial right basilar pulmonary opacity has not substantially changed in appearance from the comparison study. There is also likely vague infiltrate in the left upper lobe. IMPRESSION: Bilateral pulmonary opacities appeared similar to the comparison study of over 1 year ago. Presumed reflect areas of chronic lung disease and will consider follow-up nonemergent chest CT as further evaluation. Dictated on workstation # [id number] Dict: 06/26/2010 Trans: 06/26/20 0825 [id number] Interpreted by: JAYDEN FREITAS Electronically signed by: Reviewed: Reviewed by Sd Diagonstic Imaging: Xray Plain Films/CT/US/NM/MRI: chest Comments Interval placement of a central catheter in good position with no pneumothorax or other palpitations noted on one view chest x-ray. NAME: ETELVINA ALONSO [facility] REC#: [id number] PT STATUS: REG ER : 1960 PHYSICIAN: LYDIA POOLE MD ADMIT DATE: 06/26/20/ER Draft Date of Exam:06/26/20 CHEST 1 VIEW, AP/PA ONLY INDICATION: Line placement. EXAMINATION: Frontal chest obtained at 09:15 a.m. and compared to 08:03 a.m. the same day. FINDINGS: There is cardiomegaly and poststernotomy change with central vascular congestion. New right IJ central catheter tip overlies SVC. There is no pneumothorax or pleural fluid following device placement. IMPRESSION: Cardiomegaly and central vascular congestion. New right IJ central catheter tip overlies the upper SVC. There is no pneumothorax or pleural fluid following line placement. Dictated on workstation # [id number] Dict: 06/26/2027 Trans: 06/26/2029 [facility] [id number] Interpreted by: ALEE RUEDA MD Electronically signed by: Reviewed: Reviewed by Me Departure Communication (Admissions) Time/Spoke to Admitting Phy: 10:00 Discussed the case with Dr. Nance and she agrees to take the patient the ICU on broad-spectrum antibiotics. Send out test for COVID-19. Impression Primary Impression: Pneumonia Qualified Codes: J18.9 - Pneumonia, unspecified organism Additional Impressions: Acute respiratory failure with hypoxia Septic shock Person under investigation for COVID-19 Disposition: 01 HOME, SELF-CARE Condition: Critical Admissions Decision to Admit Reason: Admit from ER (General) Decision to Admit/Date: Jun 26, 2020 Time/Decision to Admit Time: 09:00 Departure-Patient Inst. Referrals: [facility] (PCP) Primary Care Physician LAUREN MURRAY (Family) Primary Care Physician LYDIA POOLE Jun 26, 2020 07:47
[2020-06-26 07:56] LABS: BASOPHILS # (AUTO) 0.2 10^3/uL (0.0-0.1); BASOPHILS % (AUTO) 1 % (0-10); EOSINOPHILS # (AUTO) 0.1 10^3/uL (0.0-0.3); EOSINOPHILS % (AUTO) 0 % (0-10); HEMATOCRIT 45 % (35-52); LYMPHOCYTES # (AUTO) 1.1 10^3/uL (1.0-4.0); LYMPHOCYTES % (AUTO) 4 % (12-44); MEAN CORPUSCULAR HEMOGLOBIN 30 pg (25-34); MEAN CORPUSCULAR HGB CONC 33 g/dL (32-36); MEAN CORPUSCULAR VOLUME 91 fL (80-99); MEAN PLATELET VOLUME 9.1 fL (9.0-12.2); MONOCYTES # (AUTO) 1.1 10^3/uL (0.0-1.0); MONOCYTES % (AUTO) 4 % (0-12); NEUTROPHILS # (AUTO) 27.8 10^3/uL (1.8-7.8); NEUTROPHILS % (AUTO) 91 % (42-75); PLATELET COUNT 397 10^3/uL (130-400)
[2020-06-26] MEDS ORDERED: HYDROcodone/APAP 5 MG/325 MG (LORTAB) TAB PO ONE ×2 (08:00→11:15)
[2020-06-26 08:02] LABS: WHITE BLOOD COUNT 30.6 10^3/uL (4.3-11.0)
[2020-06-26] MEDS ORDERED: VANCOMYCIN INJECTION 750 MG in NS (IVPB) 100 ML IV ONE (08:15)
[2020-06-26] MEDS ORDERED: CEFEPIME INJECTION 1,000 MG in WATER (STERILE) FOR INJECTION 10 ML IV ONE (08:15)
[2020-06-26] MEDS ORDERED: LACTATED RINGERS 1,000 ML IV SCH (08:15)
[2020-06-26 08:19] LABS: ALANINE AMINOTRANSFERASE 17 U/L (0-55); ALBUMIN 4.4 GM/DL (3.2-4.5); ALKALINE PHOSPHATASE 47 U/L (40-136); BILIRUBIN,TOTAL 0.4 MG/DL (0.1-1.0); BUN/CREATININE RATIO 12; CALCIUM 9.9 MG/DL (8.5-10.1); CARBON DIOXIDE 23 MMOL/L (21-32); CHLORIDE 97 MMOL/L (98-107); CREATININE SERUM 0.77 MG/DL (0.60-1.30); FIBRIN DEGRADATION PRODUCTS 0.41 UG/ML (0.00-0.49); GFR ESTIMATED > 60; GLUCOSE 134 MG/DL (70-105); INR 0.9 (0.8-1.4); POTASSIUM 4.4 MMOL/L (3.6-5.0); PROTHROMBIN TIME PATIENT 12.8 SEC (12.2-14.7); SODIUM 134 MMOL/L (135-145); TOTAL PROTEIN 8.3 GM/DL (6.4-8.2)
--- NOTE | 2020-06-26 08:26 | Diagnostic Imaging Report ---
INDICATION: Sepsis, cough, congestion, flulike symptoms. Exam compared 03/26/2019. FINDINGS: Sternal wires midline. Heart size stable and right greater than left perihilar as well as medial right basilar pulmonary opacity has not substantially changed in appearance from the comparison study. There is also likely vague infiltrate in the left upper lobe. IMPRESSION: Bilateral pulmonary opacities appeared similar to the comparison study of over 1 year ago. Presumed reflect areas of chronic lung disease and will consider follow-up nonemergent chest CT as further evaluation. Dictated by: Dictated on workstation # [id number]
[2020-06-26 08:32] LABS: BAND NEUTROPHILS 15 %; BASOPHILS % (MANUAL) 0 %; EOSINOPHILS % (MANUAL) 1 %; LYMPHOCYTES % (MANUAL) 4 %; MONOCYTES % (MANUAL) 3 %; NEUTROPHILS % (MANUAL) 77 %
[2020-06-26 08:33] LABS: RBC MORPH NORMAL
[2020-06-26] MEDS ORDERED: VANCOMYCIN INJECTION 500 MG in NS (IVPB) 100 ML IV ONE (09:15)
--- NOTE | 2020-06-26 09:30 | Diagnostic Imaging Report ---
INDICATION: Line placement. EXAMINATION: Frontal chest obtained at 09:15 a.m. and compared to 08:03 a.m. the same day. FINDINGS: There is cardiomegaly and poststernotomy change with central vascular congestion. New right IJ central catheter tip overlies SVC. There is no pneumothorax or pleural fluid following device placement. IMPRESSION: Cardiomegaly and central vascular congestion. New right IJ central catheter tip overlies the upper SVC. There is no pneumothorax or pleural fluid following line placement. Dictated by: Dictated on workstation # [id number]
--- NOTE | 2020-06-26 09:56 | NUR ---
PER PTS REQUEST SPOUSE WAS CONTACTED AND UPDATED. SPOUSE WILL DROP OFF GLASSES FOR PT.
[2020-06-26] MEDS ORDERED: VANCOMYCIN 1250 MG/NS 250 ML IVPB IV ONE ×2 (10:00)
[2020-06-26] MEDS ORDERED: VANCOMYCIN 500 MG/VIAL IV ONE (10:26)
[2020-06-26] MEDS ORDERED: NS (IVPB) 0 ML ONE (10:27)
[2020-06-26 10:28] LABS: BILIRUBIN,URINE NEGATIVE (NEGATIVE); CLARITY,URINE CLEAR; COLOR,URINE YELLOW; GLUCOSE, URINE (UA) NEGATIVE (NEGATIVE); KETONES,URINE NEGATIVE (NEGATIVE); LEUKOCYTE ESTERASE ,URINE NEGATIVE (NEGATIVE); NITRITE,URINE NEGATIVE (NEGATIVE); PH,URINE 6.5 (5-9); PROTEIN,URINE NEGATIVE (NEGATIVE)
[2020-06-26] MEDS ORDERED: NS (IVPB) 100 ML ONE (10:33)
[2020-06-26 10:34] LABS: BACTERIA,URINE NEGATIVE /HPF; SQUAMOUS EPITHELIAL CELL,UR 0-2 /HPF
--- NOTE | 2020-06-26 10:49 | NUR ---
REINFORCED PTS CENTRAL LINE WITH OPSITE.
--- NOTE | 2020-06-26 11:43 | NUR ---
CR 0.77; CR CL ~60; WT 56 KG; VANCO 1250 MG IV GIVEN IN ER; CONTINUE WITH VANCO 750 MG IV Q12H X 3 DAYS
[2020-06-26] MEDS ORDERED: EPINEPHrine 1 MG INJECTION 4 MG in NS (IVPB) 248 ML IV SCH (11:45)
[2020-06-26] MEDS ORDERED: CATHETER FLUSH 10 ML SYR IV PRN (11:45)
--- NOTE | 2020-06-26 11:55 | NUR ---
Pt arrived to ICU room 12 from ER at this time accompanied by CERTIFIED PHYSICIAN'S ASSISTANT. VSS on arrival. Bedside report received. Pt alert et oriented on arrival. See physical assessment at 1200 for details. Will continue to monitor.
[2020-06-26] MEDS: LACTATED RINGERS 1,000 ML IV SCH ×2 (12:09→16:28)
[2020-06-26] MEDS: NOREPINEPHRINE 4 MG/250 ML 250 ML IV SCH ×2 (12:15→21:48)
[2020-06-26] MEDS: VASOPRESSIN INJECTION 20 UNIT in NS (IVPB) 100 ML IV SCH ×2 (12:15→20:00)
--- NOTE | 2020-06-26 13:36 | History & Physical ---
HPI History of Present Illness: 59 yo female came to ER due to fever that started this morning. Has had cough for about a week as well as nasal congestion and now sore throat due to coughing, denies loss of taste or smell. Also has pain and redness in left lower leg. Has chronic nausea and vomiting. Date seen by provider: Jun 26, 2020 Time Seen by Provider: 13:10 Attending Physician Nina Nance MD [facility] [place] Consult Date of Admission Jun 26, 2020 at 10:05 Home Medications Home Medications Reviewed patient Home Medication Reconciliation performed by pharmacy medication reconciliations hvac field service technician and/or nursing. Patients Allergies have been reviewed. Allergies Coded Allergies: No Known Drug Allergies (Unverified , 08/23/18) LIH-Urvsox-Owrhbj Hx Patient Social History Alcohol Use: Denies Use Recreational Drug Use: No Smoking Status: Current Everyday Smoker Type Used: Cigarettes 2nd Hand Smoke Exposure: Yes Recent Foreign Travel: No Contact w/other who traveled: No Recent Hopitalizations: No (11/30- ARDS) Recent Infectious Disease Expo: No Immunizations Up To Date Tetanus Booster (TDap): Unknown Date of Pneumonia Vaccine: Jul 17, 2017 Date of Influenza Vaccine: Aug 03, 2018 Past Medical History PMHx: Coronary artery disease, s/p CABG 07/2018 Anxiety Chronic pain HTN RLS PSurgHx: CABG Family Medical History Significant Family History: Diabetes, Hypertension Review of Systems (CHC) Constitutional: fever EENTM: nose congestion, throat pain Respiratory: cough, short of breath Gastrointestinal: No abdominal pain, No constipation, No diarrhea; nausea, vomiting Genitourinary: No dysuria Skin: rash Psychiatric/Neurological: No Symptoms Reported Reviewed Test Results Reviewed Test Results Lab Laboratory Tests Test 06/26/20 07:35 06/26/20 07:39 06/26/20 09:23 06/26/20 10:22 Range/Units Blood Gas Puncture Site RT RAD Blood Gas Patient Temperature 39.7 Arterial Blood pH 7.40 7.37-7.43 Arterial Blood Partial Pressure CO2 42 35-45 MMHG Arterial Blood Partial Pressure O2 76 L 79-93 MMHG Arterial Blood HCO3 25 23-27 MMOL/L Arterial Blood Total CO2 26.0 21.0-31.0 MMOL/L Arterial Blood Oxygen Saturation 94 94-100 % Arterial Blood Base Excess 0.7 -2.5-2.5 MMOL/L Dwight Test YES-POS Blood Gas Ventilator Setting NO Blood Gas Inspired Oxygen RA Coronavirus 2018 (NORY) Negative Negative White Blood Count 30.6 *H 4.3-11.0 10^3/uL Red Blood Count 4.95 3.80-5.11 10^6/uL Hemoglobin 15.0 11.5-16.0 g/dL Hematocrit 45 35-52 % Mean Corpuscular Volume 91 80-99 fL Mean Corpuscular Hemoglobin 30 25-34 pg Mean Corpuscular Hemoglobin Concent 33 32-36 g/dL Red Cell Distribution Width 12.9 10.0-14.5 % Platelet Count 397 130-400 10^3/uL Mean Platelet Volume 9.1 9.0-12.2 fL Immature Granulocyte % (Auto) 1 % Neutrophils (%) (Auto) 91 H 42-75 % Lymphocytes (%) (Auto) 4 L 12-44 % Monocytes (%) (Auto) 4 0-12 % Eosinophils (%) (Auto) 0 0-10 % Basophils (%) (Auto) 1 0-10 % Neutrophils # (Auto) 27.8 H 1.8-7.8 10^3/uL Lymphocytes # (Auto) 1.1 1.0-4.0 10^3/uL Monocytes # (Auto) 1.1 H 0.0-1.0 10^3/uL Eosinophils # (Auto) 0.1 0.0-0.3 10^3/uL Basophils # (Auto) 0.2 H 0.0-0.1 10^3/uL Immature Granulocyte # (Auto) 0.4 H 0.0-0.1 10^3/uL Neutrophils % (Manual) 77 % Lymphocytes % (Manual) 4 % Monocytes % (Manual) 3 % Eosinophils % (Manual) 1 % Basophils % (Manual) 0 % Band Neutrophils 15 % Blood Morphology Comment NORMAL Prothrombin Time 12.8 12.2-14.7 SEC INR Comment 0.9 0.8-1.4 Activated Partial Thromboplast Time 32 24-35 SEC D-Dimer 0.41 0.00-0.49 UG/ML Sodium Level 134 L 135-145 MMOL/L Potassium Level 4.4 3.6-5.0 MMOL/L Chloride Level 97 L 98-107 MMOL/L Carbon Dioxide Level 23 21-32 MMOL/L Anion Gap 14 5-14 MMOL/L Blood Urea Nitrogen 9 7-18 MG/DL Creatinine 0.77 0.60-1.30 MG/DL Estimat Glomerular Filtration Rate > 60 BUN/Creatinine Ratio 12 Glucose Level 134 H 70-105 MG/DL Lactic Acid Level 1.96 0.50-2.00 MMOL/L Calcium Level 9.9 8.5-10.1 MG/DL Corrected Calcium 9.6 8.5-10.1 MG/DL Total Bilirubin 0.4 0.1-1.0 MG/DL Aspartate Amino Transf (AST/SGOT) 22 5-34 U/L Alanine Aminotransferase (ALT/SGPT) 17 0-55 U/L Alkaline Phosphatase 47 40-136 U/L C-Reactive Protein High Sensitivity 5.39 H 0.00-0.50 MG/DL Total Protein 8.3 H 6.4-8.2 GM/DL Albumin 4.4 3.2-4.5 GM/DL Procalcitonin 0.37 H <0.10 NG/ML Urine Color YELLOW Urine Clarity CLEAR Urine pH 6.5 5-9 Urine Specific [place] <=1.005 1.016-1.022 Urine Protein NEGATIVE NEGATIVE Urine Glucose (UA) NEGATIVE NEGATIVE Urine Ketones NEGATIVE NEGATIVE Urine Nitrite NEGATIVE NEGATIVE Urine Bilirubin NEGATIVE NEGATIVE Urine Urobilinogen 0.2 < = 1.0 MG/DL Urine Leukocyte Esterase NEGATIVE NEGATIVE Urine RBC (Auto) NEGATIVE NEGATIVE Urine RBC NONE /HPF Urine WBC NONE /HPF Urine Squamous Epithelial Cells 0-2 /HPF Urine Crystals NONE /LPF Urine Bacteria NEGATIVE /HPF Urine Casts NONE /LPF Urine Mucus NEGATIVE /LPF Urine Culture Indicated NO Test 06/26/20 12:52 Range/Units Lactic Acid Level 2.47 *H 0.50-2.00 MMOL/L Radiology CXR 06/26: IMPRESSION: Bilateral pulmonary opacities appeared similar to the comparison study of over 1 year ago. Presumed reflect areas of chronic lung disease and will consider follow-up nonemergent chest CT as further evaluation. Physical Exam-([facility]C) Physical Exam Vital Signs VS - Last 72 Hours, by Label 06/26/20 06/26/20 06/26/20 06/26/20 07:15 07:15 07:35 11:45 Temp 38.0 36.4 Pulse 124 113 Resp 24 24 B/P (MAP) 133/76 (95) 122/71 Pulse Ox 94 97 97 O2 Delivery Nasal Cannula Nasal Cannula Nasal Cannula O2 Flow Rate 2.00 2.00 2.00 06/26/20 06/26/20 06/26/20 06/26/20 11:45 12:00 12:15 12:15 Pulse 105 Resp 21 B/P (MAP) 134/72 134/72 Pulse Ox 96 O2 Delivery Nasal Cannula Nasal Cannula Nasal Cannula O2 Flow Rate 2.00 2.00 2.00 Capillary Refill : Less Than 3 Seconds General Appearance: WD/WN, mild distress Respiratory: decreased breath sounds (right), wheezing (left) Cardiovascular: no murmur, tachycardia Peripheral Pulses: 2+ Dorsalis Pedis (R), 2+ Left Dors-Pedis (L) Gastrointestinal: normal bowel sounds, non tender, soft Extremities: no pedal edema Neurologic/Psychiatric: alert, normal mood/affect Skin: other (erythema to left anterior jaffe, warm to touch and tender to touch) Assessment/Plan Assessment/Plan Admission Status: Inpatient Order (span 2 midnights) Reason for Inpatient Admission: Septic shock with underlying comorbidities (1) Septic shock Status: Acute Assessment & Plan: Leukocytosis, tachycardia on admit with low blood pressure, improved with IVF. Presumed secondary to pneumonia, but does also have likely cellulitis of left anterior leg. Cefepime and vancomycin. Rapid flu and COVID negative. (2) Pneumonia Status: Acute Assessment & Plan: With new supplemental oxygen requirement, cefepime, vancomycin and RT protocol. Qualifiers: Qualified Codes: J18.9 - Pneumonia, unspecified organism (3) Acute respiratory failure with hypoxia Status: Acute Assessment & Plan: Requiring 4 lpm supplemental oxygen without baseline requirement, breathing treatments and wean as tolerated. (4) Person under investigation for COVID-19 Status: Acute Assessment & Plan: Rapid negative, PCR pending. (5) Coronary artery disease Status: Chronic Qualifiers: Qualified Codes: I25.810 - Atherosclerosis of coronary artery bypass gerry t(s) without angina pectoris (6) COPD (chronic obstructive pulmonary disease) Status: Chronic Assessment & Plan: MAT protocol (7) DVT prophylaxis Status: Acute Assessment & Plan: Enoxaparin Clinical Quality Measures DVT/VTE Risk/Contraindication: Risk Factor Score Per Nursin RFS Level Per Nursing on Admit: 3=High NINA NANCE MD Jun 26, 2020 13:36
[2020-06-26 14:10] VITALS: BP 133/76
[2020-06-26] MEDS ORDERED: PANT20TA18 PO (14:14)
[2020-06-26] MEDS ORDERED: ACET325T38 PO (14:14)
[2020-06-26] MEDS ORDERED: ROPI6TAB2 PO (14:14)
[2020-06-26] MEDS ORDERED: PROM25TA14 PO (14:14)
[2020-06-26] MEDS ORDERED: FAMO20TA5 PO (14:14)
--- NOTE | 2020-06-26 14:15 | NUR ---
I SPOKE WITH THE PATIENT'S AND WENT THROUGH THE EXTERNAL MED HISTORY TO COMPLETE THE MED REC. I TRIED TO CALL PATIENT'S ROOM PHONE BUT THE CALL WOULDN'T GO THROUGH SO I CALLED HER DAREN AND HE WENT THROUGH HER MEDICATIONS AT HOME WITH ME. GAVE ME DIRECTIONS OFF OF THE BOTTLES THAT HE WAS SURE SHE STILL TAKES, EVERYTHING MATCHED UP ON THE EXTERNAL MED HISTORY. I PUT THESE MEDICATIONS AND DIRECTIONS ON THE MED REC. I COMPLETED THIS MED REC TO THE BEST OF MY ABILITY AT THIS TIME WITHOUT TALKING TO THE PATIENT. OTC: TYLENOL
[2020-06-26] MEDS: CEFEPIME 1,000 MG/SWFI 10 ML IV PUSH IV SCH ×4 (14:22→21:08)
[2020-06-26] MEDS: HYDROcodone/APAP 5 MG/325 MG (LORTAB) TAB PO PRN ×2 (16:29→23:12)
[2020-06-26] MEDS ORDERED: rOPINIRole 1 MG (REQUIP) TABLET PO ONE (21:00)
[2020-06-26] MEDS ORDERED: FAMOTIDINE 20 MG (PEPCID) TABLET PO ONE (21:00)
[2020-06-26] MEDS: ALBUTEROL/IPRATROP (COMBIVENT RESPIMAT) 4 GM INHALER IH SCH ×2 (21:02→22:36)
[2020-06-26] MEDS: GABAPENTIN 400 MG (NEURONTIN) CAP PO SCH (21:08)
[2020-06-26] MEDS: ONDANSETRON 4 MG/2 ML (SDV) Z0FRAN IV PRN (22:14)
[2020-06-26] MEDS: VANCOMYCIN 750 MG/NS 250 ML IVPB IV SCH ×2 (23:11)
[2020-06-27] MEDS: LACTATED RINGERS 1,000 ML IV SCH (01:15)
[2020-06-27] MEDS: ALBUTEROL/IPRATROP (COMBIVENT RESPIMAT) 4 GM INHALER IH SCH ×6 (02:51→23:21)
[2020-06-27] MEDS: CEFEPIME 1,000 MG/SWFI 10 ML IV PUSH IV SCH ×8 (02:54→21:01)
[2020-06-27] MEDS: VASOPRESSIN INJECTION 20 UNIT in NS (IVPB) 100 ML IV SCH (02:54)
[2020-06-27 02:57] LABS: BASOPHILS # (AUTO) 0.1 10^3/uL (0.0-0.1); BASOPHILS % (AUTO) 0 % (0-10); EOSINOPHILS % (AUTO) 0 % (0-10); HEMATOCRIT 36 % (35-52); HEMOGLOBIN 11.7 g/dL (11.5-16.0); LYMPHOCYTES # (AUTO) 1.9 10^3/uL (1.0-4.0); LYMPHOCYTES % (AUTO) 8 % (12-44); MEAN CORPUSCULAR HEMOGLOBIN 30 pg (25-34); MEAN CORPUSCULAR HGB CONC 33 g/dL (32-36); MEAN CORPUSCULAR VOLUME 92 fL (80-99); MEAN PLATELET VOLUME 9.1 fL (9.0-12.2); MONOCYTES # (AUTO) 0.8 10^3/uL (0.0-1.0); MONOCYTES % (AUTO) 3 % (0-12); NEUTROPHILS # (AUTO) 21.3 10^3/uL (1.8-7.8); NEUTROPHILS % (AUTO) 88 % (42-75); PLATELET COUNT 291 10^3/uL (130-400); WHITE BLOOD COUNT 24.3 10^3/uL (4.3-11.0)
[2020-06-27] MEDS: ACETAMINOPHEN 325 MG TABLET PO PRN ×2 (02:58→22:25)
[2020-06-27 03:07] LABS: CHLORIDE 100 MMOL/L (98-107); POTASSIUM 3.8 MMOL/L (3.6-5.0)
[2020-06-27 03:08] LABS: SODIUM 135 MMOL/L (135-145)
[2020-06-27 03:09] LABS: CALCIUM 8.7 MG/DL (8.5-10.1); GLUCOSE 126 MG/DL (70-105)
[2020-06-27 03:11] LABS: CARBON DIOXIDE 26 MMOL/L (21-32)
[2020-06-27 03:13] LABS: CREATININE SERUM 0.59 MG/DL (0.60-1.30); GFR ESTIMATED > 60; PHOSPHORUS 3.3 MG/DL (2.3-4.7)
[2020-06-27 03:14] LABS: BUN/CREATININE RATIO 14
[2020-06-27 03:16] LABS: MAGNESIUM 1.9 MG/DL (1.6-2.4)
--- NOTE | 2020-06-27 04:26 | Pulmonary Consultation ---
History of Present Illness History of Present Illness Date Seen by Provider: Jun 27, 2020 Time Seen by Provider: 04:21 Date of Admission Allergies and Home Medications Allergies Coded Allergies: No Known Drug Allergies (Unverified , 08/23/18) Home Medications Acetaminophen 325 Mg Tablet, 650 MG PO Q6H PRN for PAIN-MILD (1-4), (Reported) TAKES 2 (325MG) TABLETS Famotidine 20 Mg Tablet, 20 MG PO HS PRN for HEARTBURN, (Reported) Gabapentin 800 Mg Tablet, 800 MG PO QID, (Reported) Pantoprazole Sodium 20 Mg Tablet.dr, 20 MG PO DAILY, (Reported) Promethazine HCl 25 Mg Tablet, 25 MG PO Q12H PRN for NAUSEA/VOMITING-1ST LINE, (Reported) Ropinirole HCl 6 Mg Tab.er.24h, 6 MG PO HS, (Reported) Past Tyhecnh-Joluen-Emycpr Hx Patient Social History Alcohol Use: Denies Use Recreational Drug Use: No Smoking Status: Current Everyday Smoker Type Used: Cigarettes 2nd Hand Smoke Exposure: Yes Recent Foreign Travel: No Contact w/Someone Who Travel: No Recent Infectious Disease Expo: No Recent Hopitalizations: No (11/30- ARDS) Immunizations Up To Date Tetanus Booster (TDap): Unknown PED Vaccines UTD: Yes Date of Pneumonia Vaccine: Jul 17, 2017 Date of Influenza Vaccine: Aug 03, 2018 Seasonal Allergies Seasonal Allergies: No Past Medical History Surgeries: Yes (CARPAL TUNNEL, OPEN HEART-4 VESSEL CABG 07/30/18) Abdominal, Cardiac, CABG, Hysterectomy, Oophorectomy, Open Heart Surgery, Orthopedic, Vascular Surgery Respiratory: Yes Asthma, Pneumonia, COPD Currently Using CPAP: No Currently Using BIPAP: No Cardiac: Yes (IA 07/2018 WITH 4 VESSEL CABG 07/30/18) Coronary Artery Disease, Heart Attack, High Cholesterol, Hypertension Neurological: No 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 6.0oz. 51.549730sh; 22.00 BMI Method:Stated Exam Exam Vital Signs Date Time Temp Pulse Resp B/P (MAP) Pulse Ox O2 Delivery O2 Flow Rate FiO2 06/27/20 03:00 101 15 98/60 95 Nasal Cannula 2.00 06/27/20 02:57 94 Nasal Cannula 2.00 06/27/20 02:55 36.6 Nasal Cannula 2.00 06/27/20 02:00 92 28 94/52 90 Room Air 06/27/20 01:00 101 06/27/20 01:00 101 25 101/60 Room Air 06/27/20 00:00 113 18 119/53 Room Air 06/27/20 00:00 94 Room Air 06/27/20 00:00 37.1 Room Air 06/26/20 23:00 108 27 121/63 95 Room Air 06/26/20 22:36 94 Nasal Cannula 2.00 06/26/20 22:00 105 29 89 Room Air 06/26/20 21:14 37.3 Room Air 06/26/20 21:00 112 33 125/65 92 Nasal Cannula 2.00 06/26/20 20:10 93 Room Air 06/26/20 20:00 37.4 06/26/20 20:00 102 27 91 Nasal Cannula 2.00 06/26/20 19:00 101 26 90 Nasal Cannula 2.00 06/26/20 19:00 101 06/26/20 18:00 133 24 109/68 93 Nasal Cannula 2.00 06/26/20 17:00 112 25 145/60 96 Nasal Cannula 2.00 06/26/20 16:00 37.6 06/26/20 16:00 112 25 96 Nasal Cannula 2.00 06/26/20 16:00 Nasal Cannula 2.00 06/26/20 15:00 112 30 131/59 95 Nasal Cannula 2.00 06/26/20 14:30 Nasal Cannula 2.00 06/26/20 14:10 38.0 124 94 28 06/26/20 14:00 112 14 108/42 99 Nasal Cannula 2.00 06/26/20 13:37 112 06/26/20 13:00 112 21 135/67 96 Nasal Cannula 2.00 06/26/20 12:15 105 21 96 Nasal Cannula 2.00 06/26/20 12:15 134/72 06/26/20 12:00 Nasal Cannula 2.00 06/26/20 11:45 134/72 Nasal Cannula 2.00 06/26/20 11:45 36.4 113 24 122/71 97 Nasal Cannula 2.00 06/26/20 07:35 97 Nasal Cannula 2.00 06/26/20 07:15 Nasal Cannula 2.00 06/26/20 07:15 38.0 124 24 133/76 (95) 94 I & O 06/27/20 07:00 Intake Total 3185 ml Output Total 1800 ml Balance 1385 ml Height & Weight Height: 5'1.00" Weight: 114lbs. 6.0oz. 51.234901lf; 22.00 BMI Method:Stated Capillary Refill: Less Than 3 Seconds Peripheral Pulses: 2+ Dorsalis Pedis (R), 2+ Left Dors-Pedis (L) Gastrointestinal: normal bowel sounds, non tender, soft Results Lab Laboratory Tests 06/26/20 07:39 06/27/20 02:45 Assessment/Plan Assessment/Plan Acute respiratory failure - Now improved -Currently on 2 liter NC -Influenza and COVID are negative -D/C isolation Septic shock -Hypotension - resolved -No pressors currently Pneumonia -Continue Vanco and Cefepime for now -Erwin cultures pending -IVF - currently LR at 150 CAD TATE JACKSON DO Jun 27, 2020 04:26
[2020-06-27] MEDS: HYDROcodone/APAP 5 MG/325 MG (LORTAB) TAB PO PRN ×4 (05:58→23:52)
--- NOTE | 2020-06-27 07:46 | Diagnostic Imaging Report ---
INDICATION: Dyspnea. Time of exam: 3:32 AM Correlation is made with prior chest from one day earlier. Changes of median sternotomy are noted. Right-sided line has tip overlying the SVC. The lungs appear to be fairly clear on today's study. No effusion or pneumothorax is identified. There continues to be some mild central congestion. IMPRESSION: Central congestion but no evidence of overt failure. Dictated by: Dictated on workstation # [id number]
[2020-06-27] MEDS: GABAPENTIN 400 MG (NEURONTIN) CAP PO SCH ×4 (08:22→20:52)
[2020-06-27] MEDS ORDERED: ENOXAPARIN 40 MG/0.4 ML (LOVENOX) SYR SC SCH (09:00)
--- NOTE | 2020-06-27 10:01 | NUR ---
REPORT GIVEN TO HYACINTH GUERRA ON FOURTH FLOOR. PT IS GOING TO ROOM 413 FROM [facility]. HER COVID TESTS CAME BACK NEGATIVE. PT AWARE OF TRANSFER.
--- NOTE | 2020-06-27 10:05 | NUR ---
PATIENT TO ROOM 413 VIA WHEELCHAIR. REPORT RECEIVED FROM MARI CONNORS. ASSUMED CARE OF THE PATIENT AT THIS TIME. PATIENT DENIES ANY NEEDS. WILL CONTINUE TO MONITOR.
--- NOTE | 2020-06-27 10:40 | Progress Note - Hospitalist ---
Subjective HPI/CC On Admission Date Seen by Provider: Jun 27, 2020 Time Seen by Provider: 10:00 Subjective/Events-last exam Patient is up walking around without her oxygen on today. She is feeling better but her right leg is still red hot and swollen. She says her breathing is at about baseline but she has been having a cough recently. Flu is negative as is Covid. White count is down to 24,000. Blood pressure and pulse have been stable. Review of Systems Pulmonary: Cough Musculoskeletal: leg pain Focused Exam Lactate Level 06/26/20 12:52: Lactic Acid Level 2.47*H 06/26/20 15:25: Lactic Acid Level 2.63*H 06/26/20 17:00: Lactic Acid Level 1.17 Objective Exam Vital Signs Vital Signs Date Time Temp Pulse Resp B/P (MAP) Pulse Ox O2 Delivery O2 Flow Rate FiO2 06/27/20 08:00 92 21 113/65 94 Nasal Cannula 2.00 06/27/20 04:00 37.0 06/26/20 14:10 28 Capillary Refill : Less Than 3 Seconds General Appearance: No Apparent Distress, WD/WN HEENT: Other (Edentulous) Neck: Normal Inspection, Non Tender, Supple Respiratory: Normal Breath Sounds, No Accessory Muscle Use, No Respiratory Distress, Wheezing Cardiovascular: Regular Rate, Rhythm, No Gallop, No JVD, No Murmur, Normal Peripheral Pulses Gastrointestinal: Normal Bowel Sounds, Non Tender, Soft Back: Normal Inspection Extremity: No Pedal Edema, Calf Tenderness, Inflammation (Right calf), Slow Ca pillary Refill, Other (Onychomycosis of all of her toenails) Neurologic/Psychiatric: Alert, Oriented x3, No Motor/Sensory Deficits, Normal Mood/Affect Skin: Warm/Dry Results/Procedures Lab Laboratory Tests 06/27/20 02:45 Patient resulted labs reviewed. Imaging: Reviewed Imaging Report Assessment/Plan Assessment and Plan Assess & Plan/Chief Complaint Cellulitis day #2 cefepime and Vanco COPD Coronary artery disease Onychomycosis Plan to transfer to fourth floor, patient is eating and drinking well and can be taken off of IV fluids. Clinical Quality Measures DVT/VTE Risk/Contraindication: Risk Factor Score Per Nursin RFS Level Per Nursing on Admit: 3=CECILIA Raza MD Jun 27, 2020 10:40
[2020-06-27] MEDS: VANCOMYCIN 750 MG/NS 250 ML IVPB IV SCH ×4 (11:02→21:41)
[2020-06-27] MEDS ORDERED: WATER (STERILE) FOR INJECTION 10 ML ONE ×2 (15:57→20:35)
[2020-06-27] MEDS ORDERED: CEFEPIME 1 GM/10 ML (MAXIPIME) VIAL ONE ×2 (15:57→20:35)
[2020-06-27 16:01] VITALS: BP 120/72
[2020-06-27 19:55] VITALS: BP 122/70
[2020-06-28] VITALS (7 sets, daily range): BP systolic 111–154; BP diastolic 54–80
[2020-06-28] MEDS: ALBUTEROL/IPRATROP (COMBIVENT RESPIMAT) 4 GM INHALER IH SCH ×6 (02:56→23:11)
[2020-06-28] MEDS ORDERED: CEFEPIME 1 GM/10 ML (MAXIPIME) VIAL ONE ×4 (03:20→19:47)
[2020-06-28] MEDS ORDERED: WATER (STERILE) FOR INJECTION 10 ML ONE ×4 (03:20→19:47)
[2020-06-28] MEDS: CEFEPIME 1,000 MG/SWFI 10 ML IV PUSH IV SCH ×8 (03:25→19:59)
[2020-06-28 05:25] LABS: BASOPHILS # (AUTO) 0.1 10^3/uL (0.0-0.1); BASOPHILS % (AUTO) 1 % (0-10); EOSINOPHILS # (AUTO) 0.5 10^3/uL (0.0-0.3); EOSINOPHILS % (AUTO) 3 % (0-10); HEMATOCRIT 37 % (35-52); HEMOGLOBIN 11.9 g/dL (11.5-16.0); LYMPHOCYTES % (AUTO) 13 % (12-44); MEAN CORPUSCULAR HEMOGLOBIN 30 pg (25-34); MEAN CORPUSCULAR HGB CONC 32 g/dL (32-36); MEAN CORPUSCULAR VOLUME 93 fL (80-99); MEAN PLATELET VOLUME 9.3 fL (9.0-12.2); MONOCYTES # (AUTO) 0.9 10^3/uL (0.0-1.0); MONOCYTES % (AUTO) 6 % (0-12); NEUTROPHILS # (AUTO) 11.3 10^3/uL (1.8-7.8); NEUTROPHILS % (AUTO) 76 % (42-75); PLATELET COUNT 300 10^3/uL (130-400); WHITE BLOOD COUNT 14.8 10^3/uL (4.3-11.0)
[2020-06-28 05:44] LABS: CHLORIDE 105 MMOL/L (98-107)
[2020-06-28 05:45] LABS: SODIUM 140 MMOL/L (135-145)
[2020-06-28 05:46] LABS: CALCIUM 9.2 MG/DL (8.5-10.1); GLUCOSE 127 MG/DL (70-105)
[2020-06-28 05:48] LABS: CARBON DIOXIDE 25 MMOL/L (21-32)
[2020-06-28 05:50] LABS: CREATININE SERUM 0.62 MG/DL (0.60-1.30); GFR ESTIMATED > 60; PHOSPHORUS 3.2 MG/DL (2.3-4.7)
[2020-06-28 05:51] LABS: BUN/CREATININE RATIO 11
[2020-06-28] MEDS: HYDROcodone/APAP 5 MG/325 MG (LORTAB) TAB PO PRN ×3 (05:59→17:47)
[2020-06-28] MEDS: ACETAMINOPHEN 325 MG TABLET PO PRN (08:50)
[2020-06-28] MEDS: GABAPENTIN 400 MG (NEURONTIN) CAP PO SCH ×4 (08:50→19:58)
[2020-06-28] MEDS: VANCOMYCIN 750 MG/NS 250 ML IVPB IV SCH ×4 (10:20→21:59)
--- NOTE | 2020-06-28 11:04 | Progress Note - Hospitalist ---
Subjective HPI/CC On Admission Date Seen by Provider: Jun 28, 2020 Time Seen by Provider: 10:30 Subjective/Events-last exam Patient complains primarily of pain in her left leg. She continues to cough and be somewhat short of breath. Review of Systems Pulmonary: Cough Musculoskeletal: leg pain Focused Exam Lactate Level 06/26/20 12:52: Lactic Acid Level 2.47*H 06/26/20 15:25: Lactic Acid Level 2.63*H 06/26/20 17:00: Lactic Acid Level 1.17 Objective Exam Vital Signs Vital Signs Date Time Temp Pulse Resp B/P (MAP) Pulse Ox O2 Delivery O2 Flow Rate FiO2 06/28/20 10:49 95 Room Air 06/28/20 08:00 35.3 68 20 151/80 (103) 06/27/20 12:00 2.00 06/26/20 14:10 28 Capillary Refill : Less Than 3 Seconds General Appearance: No Apparent Distress, WD/WN HEENT: Other Neck: Non Tender, Supple Respiratory: Decreased Breath Sounds, Rales, Rhonci, Wheezing Cardiovascular: Regular Rate, Rhythm, No Gallop, No Murmur Gastrointestinal: Soft Extremity: Calf Tenderness, Inflammation, Swelling Neurologic/Psychiatric: Alert, Oriented x3, No Motor/Sensory Deficits, Normal Mood/Affect Skin: Erythema (Left leg), Other (Warm) Results/Procedures Lab Laboratory Tests 06/28/20 05:15 Patient resulted labs reviewed. Imaging: Reviewed Imaging Report Assessment/Plan Assessment and Plan Assess & Plan/Chief Complaint Cellulitis day #3 cefepime and Vanco COPD-with rhonchi and wheezing we will recheck a chest x-ray Coronary artery disease-with vein harvest of leg compromising circulation Onychomycosis Restless legs may take her own Requip from home Probable discharge in a.m. Clinical Quality Measures DVT/VTE Risk/Contraindication: Risk Factor Score Per Nursin RFS Level Per Nursing on Admit: 3=CECILIA Raza MD Jun 28, 2020 11:04
[2020-06-28] MEDS ORDERED: PATIENT MAY USE OWN MEDS, ALL MC SCH (15:15)
[2020-06-28] MEDS ORDERED: NICOTINE 21 MG (NICODERM) PATCH ONE (17:50)
[2020-06-28] MEDS: NICOTINE 21 MG (NICODERM) PATCH TD SCH (17:54)
[2020-06-28] MEDS ORDERED: ROPINIROLE HCL 6 MG PO SCH (21:00)
[2020-06-29] MEDS: HYDROcodone/APAP 5 MG/325 MG (LORTAB) TAB PO PRN ×2 (01:22→07:58)
[2020-06-29] MEDS: ALBUTEROL/IPRATROP (COMBIVENT RESPIMAT) 4 GM INHALER IH SCH ×3 (02:17→11:21)
[2020-06-29] MEDS ORDERED: CEFEPIME 1 GM/10 ML (MAXIPIME) VIAL ONE ×2 (02:33→07:46)
[2020-06-29] MEDS ORDERED: WATER (STERILE) FOR INJECTION 10 ML ONE ×2 (02:33→07:46)
[2020-06-29] MEDS: CEFEPIME 1,000 MG/SWFI 10 ML IV PUSH IV SCH ×4 (02:45→07:59)
[2020-06-29 03:46] VITALS: BP 134/65
[2020-06-29] MEDS: ONDANSETRON 4 MG/2 ML (SDV) Z0FRAN IV PRN (04:13)
[2020-06-29 04:40] LABS: BASOPHILS # (AUTO) 0.1 10^3/uL (0.0-0.1); BASOPHILS % (AUTO) 1 % (0-10); EOSINOPHILS # (AUTO) 0.6 10^3/uL (0.0-0.3); EOSINOPHILS % (AUTO) 6 % (0-10); HEMATOCRIT 37 % (35-52); HEMOGLOBIN 11.8 g/dL (11.5-16.0); LYMPHOCYTES # (AUTO) 2.5 10^3/uL (1.0-4.0); LYMPHOCYTES % (AUTO) 23 % (12-44); MEAN CORPUSCULAR HEMOGLOBIN 30 pg (25-34); MEAN CORPUSCULAR HGB CONC 32 g/dL (32-36); MEAN CORPUSCULAR VOLUME 94 fL (80-99); MEAN PLATELET VOLUME 9.6 fL (9.0-12.2); MONOCYTES # (AUTO) 0.8 10^3/uL (0.0-1.0); MONOCYTES % (AUTO) 7 % (0-12); NEUTROPHILS # (AUTO) 6.3 10^3/uL (1.8-7.8); NEUTROPHILS % (AUTO) 60 % (42-75); PLATELET COUNT 325 10^3/uL (130-400); WHITE BLOOD COUNT 10.6 10^3/uL (4.3-11.0)
[2020-06-29 04:48] LABS: CHLORIDE 104 MMOL/L (98-107); SODIUM 137 MMOL/L (135-145)
[2020-06-29 04:49] LABS: CALCIUM 9.3 MG/DL (8.5-10.1)
[2020-06-29 04:50] LABS: GLUCOSE 129 MG/DL (70-105)
[2020-06-29 04:51] LABS: CARBON DIOXIDE 23 MMOL/L (21-32)
[2020-06-29 04:53] LABS: CREATININE SERUM 0.62 MG/DL (0.60-1.30); GFR ESTIMATED > 60; PHOSPHORUS 3.4 MG/DL (2.3-4.7)
[2020-06-29 04:54] LABS: BUN/CREATININE RATIO 10
[2020-06-29] MEDS: GABAPENTIN 400 MG (NEURONTIN) CAP PO SCH (07:58)
[2020-06-29] MEDS: NICOTINE 21 MG (NICODERM) PATCH TD SCH (07:59)
[2020-06-29 08:00] VITALS: BP 127/88
[2020-06-29] MEDS ORDERED: FAMOTIDINE 20 MG (PEPCID) TABLET PO PRN (09:45)
[2020-06-29] MEDS ORDERED: PROMETHAZINE 25 MG (PHENERGAN) TAB PO PRN (09:45)
[2020-06-29] MEDS ORDERED: ACETAMINOPHEN 325 MG TABLET PO PRN (09:45)
[2020-06-29] MEDS ORDERED: CEFD300C3 PO (10:30)
[2020-06-29] MEDS ORDERED: ACHD5005 PO (10:30)
--- NOTE | 2020-06-29 10:30 | Discharge Summary ---
Discharge Summary Hospital Course Was the Problem List Reviewed?: Yes Problems/Dx: (1) Septic shock Status: Acute (2) Wound infection Status: Acute (3) Hx of CABG Status: Chronic Hospital Course Date of Admission: Jun 26, 2020 at 10:05 Admission Diagnosis : Family Physician/Provider: Kelton Murray Date of Discharge: 06/29/20 Discharge Diagnosis: sepsis, left lower extremity cellulitis, smoker, chronic resp failure Hospital Course: Pt had an uneventful hospital course for four days after she was admitted for septic shock from left leg cellulitis and hypoxia and acute on chronic respiratory failure. She has had multiple hospital stays the last several years after bypass surgery and continues to smoke. Pt was deemed stable for discharge, labs remain stable, no decompensation occurred during the hospital course so she was discharged on Omnicef 300 mg BID for an additional five days. Labs and Pending Lab Test: Laboratory Tests 06/29/20 04:15: White Blood Count 10.6, Red Blood Count 3.90, Hemoglobin 11.8, Hematocrit 37, Mean Corpuscular Volume 94, Mean Corpuscular Hemoglobin 30, Mean Corpuscular Hemoglobin Concent 32, Red Cell Distribution Width 13.2, Platelet Count 325, Mean Platelet Volume 9.6, Immature Granulocyte % (Auto) 3, Neutrophils (%) (Auto) 60, Lymphocytes (%) (Auto) 23, Monocytes (%) (Auto) 7, Eosinophils (%) (Auto) 6, Basophils (%) (Auto) 1, Neutrophils # (Auto) 6.3, Lymphocytes # (Auto) 2.5, Monocytes # (Auto) 0.8, Eosinophils # (Auto) 0.6H, Basophils # (Auto) 0.1, Immature Granulocyte # (Auto) 0.4H, Sodium Level 137, Potassium Level 4.0, Chloride Level 104, Carbon Dioxide Level 23, Anion Gap 10, Blood Urea Nitrogen 6L, Creatinine 0.62, Estimat Glomerular Filtration Rate > 60, BUN/Creatinine Ratio 10, Glucose Level 129H, Calcium Level 9.3, Phosphorus Level 3.4, Magnesium Level 2.0 Microbiology 06/26/20 Urine Culture - Final, Complete Enterococcus species See Comments 06/26/20 Gram Stain - Final, Resulted 06/26/20 Sputum Culture - Preliminary, Resulted Usual upper respiratory maggie Streptococcus pneumoniae 06/26/20 Blood Culture - Preliminary, Resulted No growth Home Meds Active Cefdinir 300 Mg Capsule 300 Mg PO BID Reported Tylenol (Acetaminophen) 325 Mg Tablet 650 Mg PO Q6H PRN TAKES 2 (325MG) TABLETS Famotidine 20 Mg Tablet 20 Mg PO HS PRN Pantoprazole Sodium 20 Mg Tablet.dr 20 Mg PO DAILY Promethazine Tablet (Promethazine HCl) 25 Mg Tablet 25 Mg PO Q12H PRN Ropinirole HCl 6 Mg Tab.er.24h 6 Mg PO HS Gabapentin 800 Mg Tablet 800 Mg PO QID Assessment/Pt Instructions [facility] 1 week Discharge Planning: <30 minutes discharge planning Discharge Instructions Discharge Diet: No Restrictions Activity as Tolerated: Yes Discharge Physical Examination Vital Signs Vital Signs Date Time Temp Pulse Resp B/P (MAP) Pulse Ox O2 Delivery O2 Flow Rate FiO2 06/29/20 08:00 94 Room Air 06/29/20 08:00 36.1 82 18 127/88 (101) 06/27/20 12:00 2.00 06/26/20 14:10 28 General Appearance: No Apparent Distress, WD/WN, Chronically ill Respiratory: Chest Non Tender, No Accessory Muscle Use, No Respiratory Distress, Crackles, Decreased Breath Sounds Cardiovascular: Regular Rate, Rhythm Skin: Other (left lower leg redness much improved) Neurologic/Psychiatric: Alert, Oriented x3, No Motor/Sensory Deficits, Normal Mood/Affect Allergies: Coded Allergies: No Known Drug Allergies (Unverified , 08/23/18) Discharge Summary Date of Admission Jun 26, 2020 at 10:05 Date of Discharge Discharge Date: Jun 29, 2020 Clinical Quality Measures DVT/VTE Risk/Contraindication: Risk Factor Score Per Nursin RFS Level Per Nursing on Admit: 3=High SARABJIT EATON DO Jun 29, 2020 10:30
--- NOTE | 2020-06-29 11:16 | Progress Note ---
GWEN GREENE MED STUDENT 06/29/20 1115: Progress Note Mrs. Mora is a 59 year old female that was admitted on JUN 26 by her sons due to a fever and some AMS. She also had developed some new LLE pain. Also SOB was noted. She was admitted to the hospital where she would receive cefepime and vancomycin. Over the course of a couple days she had improvement of her AMS. Her leg has also been healing nicely. She is able to still walk around, with some pain. She had no other complications during her hospital stay. She is being discharged on JUN 29 and is being taken home by her . She is leaving with some abx PO and 2 days of pain medication. Supervisory-Addendum Brief Verification & Attestation Participated in pt care: history, physical Personally performed: exam, history Care discussed with: other Procedures: n/a BRITNI EATON DO 06/30/20 0506: Supervisory-Addendum Brief Verification & Attestation Participated in pt care: history, MDM, physical Personally performed: exam, history, MDM, supervision of care Care discussed with: Medical Student Procedures: n/a Results interpretation: Verified all documentation Verification and Attestation of Medical Student E/M Service A medical student performed and documented this service in my presence. I reviewed and verified all information documented by the medical student and made modifications to such information, when appropriate. I personally performed the physical exam and medical decision making. Britni Eaton, Jun 30, 2020,05:06 GWEN GREENE MED STUDENT Jun 29, 2020 11:15 BRITNI EATON DO Jun 30, 2020 05:06
[2020-06-29 11:50] VITALS: BP 127/88
[2020-06-29] MEDS ORDERED: GABAPENTIN 400 MG (NEURONTIN) CAP PO SCH (13:00)
[2020-06-30] MEDS ORDERED: PANTOPRAZOLE 20 MG TABLET (PROTONIX) PO SCH (09:00)
== END 2020-06-29 11:50 | disposition home or self-care (01) | DRG 871 ==
LOC: EDUNIT# 07:08 → ER 07:09 → ICU 10:05 → 4TH 06-27 11:42
PROVIDERS: ADMIT Family Medicine; ATTEND Family Medicine
DX: A41.9 Sepsis, unspecified organism (principal); R65.21 Severe sepsis with septic shock; J96.01 Acute respiratory failure with hypoxia; J18.9 Pneumonia, unspecified organism; J44.0 Chronic obstructive pulmonary disease with (acute) lower respiratory infection; L03.116 Cellulitis of left lower limb; Z20.828 Contact with and (suspected) exposure to other viral communicable diseases; I25.10 Atherosclerotic heart disease of native coronary artery without angina pectoris; F41.9 Anxiety disorder, unspecified; G89.29 Other chronic pain; I10 Essential (primary) hypertension; G25.81 Restless legs syndrome; B35.1 Tinea unguium; Z95.5 Presence of coronary angioplasty implant and graft
CPT/HCPCS: 36415; 71045; 80048; 80053; 81000; 82805; 83605; 83735; 83880; 84100; 84145; 85007; 85025; 85027; 85379; 85610; 85730; 86141; 87040; 87070; 87077; 87088; 87181; 87184; 87205; 87635; 87804; 94640; 94760; 99291

== ENCOUNTER 2020-07-15 11:20 | Inpatient (IN) | payer MEDICAID ==
[~2020-07-15] VITALS: Ht 157.5 cm; Wt 58.6 kg
[~2020-07-15 11:20] MED LIST changes: +ACET325T38 PO; -CLIN300C11 PO; +CLIN300C12 PO; -NICO-588 TD; +NICO-685 TD; +PANT20TA18 PO; +PROM25TA14 PO; +ROPI6TAB2 PO
--- NOTE | 2020-07-15 11:54 | ED General ---
General Chief Complaint: Fever-Adult/Adol Stated Complaint: FEVER,COUGH, PAIN Nursing Triage Note: Pt c/o fever, cough, fatigue that began on Monday. Pt also has erythema to R lower extremity. Pt was unaware of redness until doctor pointed out. Nursing Sepsis Screen: No Definite Risk Source of Information: Patient Exam Limitations: No Limitations History of Present Illness Date Seen by Provider: Jul 15, 2020 Time Seen by Provider: 11:30 Initial Comments Patient is a 59-year-old female who presents to the emergency room today with a chief complaint of fever, semiproductive cough, fatigue she states she has had the symptoms for about 3 days. She is also noticed a patch of erythema to the right lower extremity to the medial aspect of the calf. She states that she was recently in the hospital with sepsis/pneumonia. She has been out for about 2 weeks. Patient states that she feels similar as to when she had sepsis. Patient states her fever has been as high as 101 at home. She occasionally coughs up sputum. She denies any GI symptoms, nausea, vomiting, diarrhea. She denies any genitourinary symptoms no dysuria, urgency or frequency. Patient states that the rash just started today on her right lower extremity. She has had coronary artery bypass grafting 2 years ago and veins harvested from both lower extremities. She states she has had cellulitis of her left lower extremity in the past. All other review of systems reviewed and negative except as stated above. Timing/Duration: 2-3 Days Severity: Moderate Associated Systoms: Cough, Fever/Chills, Malaise, Rash, Shortness of Air Allergies and Home Medications Allergies Coded Allergies: No Known Drug Allergies (Unverified , 08/23/18) Home Medications Acetaminophen 325 Mg Tablet, 650 MG PO Q6H PRN for PAIN-MILD (1-4), (Reported) TAKES 2 (325MG) TABLETS Cefdinir 300 Mg Capsule, 300 MG PO BID Prescribed by: SARABJIT EATON on 06/29/20 1030 Famotidine 20 Mg Tablet, 20 MG PO HS PRN for HEARTBURN, (Reported) Gabapentin 800 Mg Tablet, 800 MG PO QID, (Reported) Hydrocodone/Acetaminophen 1 Each Tablet, 1 TAB PO Q6H PRN for PAIN-MODERATE (5- 10) Prescribed by: SARABJIT EATON on 06/29/20 1030 Pantoprazole Sodium 20 Mg Tablet.dr, 20 MG PO DAILY, (Reported) Promethazine HCl 25 Mg Tablet, 25 MG PO Q12H PRN for NAUSEA/VOMITING-1ST LINE, (Reported) Ropinirole HCl 6 Mg Tab.er.24h, 6 MG PO HS, (Reported) Patient Home Medication List Home Medication List Reviewed: Yes Review of Systems Review of Systems Constitutional: chills, fever, malaise, weakness EENTM: no symptoms reported Respiratory: cough, phlegm, short of breath, wheezing Cardiovascular: no symptoms reported Gastrointestinal: no symptoms reported Genitourinary: no symptoms reported : No Musculoskeletal: other (RLE leg pain and redness) Skin: rash All Other Systems Reviewed Negative Unless Noted: Yes Past Qveqwvr-Wgfdyc-Sizczq Hx Patient Social History Alcohol Use: Denies Use Recreational Drug Use: No Smoking Status: Current Everyday Smoker Type Used: Cigarettes 2nd Hand Smoke Exposure: Yes Recent Foreign Travel: No Contact w/Someone Who Travel: No Recent Infectious Disease Expo: No Recent Hopitalizations: Yes (07/03 pneumonia) Physical Abuse: No Sexual Abuse: No Mistreated: No Fear: No Immunizations Up To Date Tetanus Booster (TDap): Unknown PED Vaccines UTD: Yes Date of Pneumonia Vaccine: Jul 17, 2017 Date of Influenza Vaccine: Aug 03, 2018 Seasonal Allergies Seasonal Allergies: No Past Medical History Surgeries: Yes (CARPAL TUNNEL, OPEN HEART-4 VESSEL CABG 07/30/18) Abdominal, Cardiac, CABG, Hysterectomy, Oophorectomy, Open Heart Surgery, Ort hopedic, Vascular Surgery Respiratory: Yes Asthma, Pneumonia, COPD Currently Using CPAP: No Currently Using BIPAP: No Cardiac: Yes ([place] 07/2018 WITH 4 VESSEL CABG 07/30/18) Coronary Artery Disease, Heart Attack, High Cholesterol, Hypertension Neurological: No 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 Genitourinary: No Gastrointestinal: No Musculoskeletal: Yes (PSORIATIC ARTHRITIS) Degenerate Disk Disease, Arthritis, Chronic Back Pain Endocrine: No HEENT: Yes (EDENTULOUS, R mastoid bone removed) Cancer: No Psychosocial: No Anxiety, Depression Integumentary: Yes (POST OP WOUND INFECTION TO LEGS POST CABG) Psoriasis Blood Disorders: Yes (POST OP ANEMIA 07/2018--4 UNITS OF BLOOD POST OP) Adverse Reaction/Blood Tranf: No Family Medical History Diabetes, Hypertension Physical Exam-Suspected Sepsis Physical Exam Vital Signs Vital Signs - First Documented 07/15/20 11:30 Temp 37.0 Pulse 128 Resp 22 B/P (MAP) 153/83 (106) Pulse Ox 93 O2 Delivery Room Air Capillary Refill : Less Than 3 Seconds Blood Pressure Mean: 106 Height, Weight, BMI Height: 5'1.00" Weight: 114lbs. 6.0oz. 51.040401qf; 22.00 BMI Method:Stated General Appearance: No Apparent Distress, WD/WN, Anxious Eyes: Bilateral Eye Normal Inspection, Bilateral Eye PERRL, Bilateral Eye EOMI Neck: Supple Respiratory: No Accessory Muscle Use, No Respiratory Distress, Crackles (Scattered crackles heard posteriorly throughout both lung toney), Expiration (Slight expiratory wheeze noted to the left posterior lung toney), Wheezing Cardiovascular: Regular Rate, Rhythm, Tachycardia Gastrointestinal: Normal Bowel Sounds, Non Tender, Soft Extremity: Normal Capillary Refill, Other (Patient has patchy erythematous cellulitic appearing rash to the right lower extremity across the anterior and medial calf) Neurologic/Psychiatric: Alert, Oriented x3, No Motor/Sensory Deficits, Normal Mood/Affect, tripper II-XII Norm as Tested Skin: normal color, warm/dry, rash (Right lower extremity) Focused Exam Lactate Level 07/15/20 12:00: Lactic Acid Level 1.32 Lactic Acid Level Laboratory Tests Test 07/15/20 12:00 Lactic Acid Level 1.32 MMOL/L (0.50-2.00) Procedures/Interventions Date of ETT Placement: Oct 17, 2018 Time of ETT Placement: 1441 Progress/Results/Core Measures Suspected Sepsis Recent Fever Within 48 Hours: Yes Infection Criteria Present: None New/Unexplained Altered Menta: No Sepsis Screen: No Definite Risk SIRS Temperature: Pulse: 128 Respiratory Rate: 22 Laboratory Tests 07/15/20 12:00: White Blood Count 21.6H Blood Pressure 153 /83 Mean: 106 07/15/20 12:00: Lactic Acid Level 1.32 Laboratory Tests 07/15/20 12:00: Platelet Count 400 07/15/20 13:09: Creatinine 0.67, INR Comment 1.0, Total Bilirubin 0.5 Results/Orders Lab Results Laboratory Tests Test 07/15/20 12:00 07/15/20 12:05 07/15/20 13:09 07/15/20 13:20 Range/Units White Blood Count 21.6 H 4.3-11.0 10^3/uL Red Blood Count 4.61 3.80-5.11 10^6/uL Hemoglobin 14.2 11.5-16.0 g/dL Hematocrit 42 35-52 % Mean Corpuscular Volume 92 80-99 fL Mean Corpuscular Hemoglobin 31 25-34 pg Mean Corpuscular Hemoglobin Concent 34 32-36 g/dL Red Cell Distribution Width 13.9 10.0-14.5 % Platelet Count 400 130-400 10^3/uL Mean Platelet Volume 10.9 9.0-12.2 fL Immature Granulocyte % (Auto) 1 % Neutrophils (%) (Auto) 85 H 42-75 % Lymphocytes (%) (Auto) 9 L 12-44 % Monocytes (%) (Auto) 5 0-12 % Eosinophils (%) (Auto) 0 0-10 % Basophils (%) (Auto) 1 0-10 % Neutrophils # (Auto) 18.2 H 1.8-7.8 10^3/uL Lymphocytes # (Auto) 2.0 1.0-4.0 10^3/uL Monocytes # (Auto) 1.0 0.0-1.0 10^3/uL Eosinophils # (Auto) 0.0 0.0-0.3 10^3/uL Basophils # (Auto) 0.1 0.0-0.1 10^3/uL Immature Granulocyte # (Auto) 0.2 H 0.0-0.1 10^3/uL Neutrophils % (Manual) 85 % Lymphocytes % (Manual) 9 % Monocytes % (Manual) 5 % Eosinophils % (Manual) 1 % Blood Morphology Comment NORMAL Lactic Acid Level 1.32 0.50-2.00 MMOL/L Coronavirus 2018 (NORY) Negative Negative Prothrombin Time 13.9 12.2-14.7 SEC INR Comment 1.0 0.8-1.4 Activated Partial Thromboplast Time 34 24-35 SEC D-Dimer 0.57 H 0.00-0.49 UG/ML Sodium Level 134 L 135-145 MMOL/L Potassium Level 4.0 3.6-5.0 MMOL/L Chloride Level 102 98-107 MMOL/L Carbon Dioxide Level 21 21-32 MMOL/L Anion Gap 11 5-14 MMOL/L Blood Urea Nitrogen 9 7-18 MG/DL Creatinine 0.67 0.60-1.30 MG/DL Estimat Glomerular Filtration Rate > 60 BUN/Creatinine Ratio 13 Glucose Level 110 H 70-105 MG/DL Calcium Level 8.5 8.5-10.1 MG/DL Corrected Calcium 8.7 8.5-10.1 MG/DL Total Bilirubin 0.5 0.1-1.0 MG/DL Aspartate Amino Transf (AST/SGOT) 16 5-34 U/L Alanine Aminotransferase (ALT/SGPT) 12 0-55 U/L Alkaline Phosphatase 31 L 40-136 U/L C-Reactive Protein High Sensitivity 19.48 H 0.00-0.50 MG/DL Total Protein 7.1 6.4-8.2 GM/DL Albumin 3.7 3.2-4.5 GM/DL Procalcitonin 0.39 H <0.10 NG/ML Urine Color YELLOW Urine Clarity CLEAR Urine pH 6.5 5-9 Urine Specific [place] 1.010 L 1.016-1.022 Urine Protein NEGATIVE NEGATIVE Urine Glucose (UA) NEGATIVE NEGATIVE Urine Ketones NEGATIVE NEGATIVE Urine Nitrite NEGATIVE NEGATIVE Urine Bilirubin NEGATIVE NEGATIVE Urine Urobilinogen 0.2 < = 1.0 MG/DL Urine Leukocyte Esterase NEGATIVE NEGATIVE Urine RBC (Auto) NEGATIVE NEGATIVE Urine RBC 0-2 /HPF Urine WBC 0-2 /HPF Urine Squamous Epithelial Cells 5-10 /HPF Urine Crystals NONE /LPF Urine Bacteria NEGATIVE /HPF Urine Casts NONE /LPF Urine Mucus NEGATIVE /LPF Urine Culture Indicated CULTURE PENDING Micro Results Microbiology 07/15/20 Influenza Types A,B Antigen (MARCY) - Final, Complete My Orders Orders - MICAH KIRBY MD Cbc With Automated Diff (07/15/20 11:47) Comprehensive Metabolic Panel (07/15/20 11:47) Blood Culture (07/15/20 11:47) Sputum Culture (07/15/20 11:47) Urinalysis (07/15/20 11:47) Urine Culture (07/15/20 11:47) Protime With Inr (07/15/20 11:47) Partial Thromboplastin Time (07/15/20 11:47) Chest 1 View, Ap/Pa Only (07/15/20 11:47) Ed Iv/Invasive Line Start (07/15/20 11:47) Ed Iv/Invasive Line Start (07/15/20 11:47) Lactic Acid Analyzer (07/15/20 11:47) Influenza A And B Antigens (07/15/20 11:47) Hs C Reactive Protein (07/15/20 11:47) Fibrin Degradation Products (07/15/20 11:47) Procalcitonin (Pct) (07/15/20 11:47) Vancomycin Injection (Vancomycin Injecti (07/15/20 12:00) Vital Signs Adult Sepsis Patie Q15M (07/15/20 11:47) O2 (07/15/20 11:47) Remove Rings In Anticipation O (07/15/20 11:47) Cefazolin 2 Gm Iv Premixed (Ancef 2 Gm P (07/15/20 12:00) Ns Iv 1000 Ml (Sodium Chloride 0.9%) (07/15/20 12:00) Acetaminophen Tablet (Tylenol Tablet) (07/15/20 12:00) Vancomycin Injection (Vancomycin Injecti (07/15/20 12:00) Manual Differential (07/15/20 12:00) Covid 19 Inhouse Test (07/15/20 12:53) Medications Given in ED Current Medications Medications Dose Ordered Sig/Lance Route Start Time Stop Time Status Last Admin Dose Admin Acetaminophen 1,000 mg ONCE ONCE PO 07/15/20 12:00 07/15/20 12:01 DC 07/15/20 12:11 1,000 MG Cefazolin Sodium/ Dextrose 50 ml @ 100 mls/hr ONCE ONCE IV 07/15/20 12:00 07/15/20 12:29 DC 07/15/20 12:45 100 MLS/HR Vancomycin HCl 1250 mg/Sodium Chloride 262.5 ml @ 250 mls/hr ONCE ONCE IV 07/15/20 12:00 07/15/20 13:02 DC 07/15/20 13:33 250 MLS/HR Vital Signs/I&O 07/15/20 11:30 Temp 37.0 Pulse 128 Resp 22 B/P (MAP) 153/83 (106) Pulse Ox 93 O2 Delivery Room Air Capillary Refill : Less Than 3 Seconds Blood Pressure Mean: 106 Progress Note : Time: 12:21 Progress Note Patient is a 59-year-old female who presents to the emergency department today with a chief complaint of cough, fever, generalized fatigue and weakness onset 3 days ago. Also a rash to the right lower extremity. Patient appears to feel unwell. Evaluation today includes a physical exam, sepsis laboratory evaluation including lactic acid, CRP and procalcitonin and D-dimer. Patient's chest x-ray is pending at the time of dictation. Patient is treated in the emergency department with 1 g of Tylenol for her fever as well as a liter of normal saline for her tachycardia. Patient's laboratory evaluation will be reviewed once it is completed. Diagnostic Imaging Diagonstic Imaging: Xray Plain Films/CT/US/NM/MRI: chest Comments [facility], [place] NAME: ETELVINA ALONSO [facility] REC#: [id number] PT STATUS: REG ER : 1960 PHYSICIAN: MICAH KIRBY MD ADMIT DATE: 07/15/20/ER Draft Date of Exam:07/15/20 CHEST 1 VIEW, AP/PA ONLY Indication: Cough and fever Portable AP view of chest is obtained. Comparison is made study of 06/27/2020. Heart size and pulmonary vascularity are at the upper limits of normal however no overt edema is identified. There is no consolidation, pneumothorax or significant pleural fluid. No significant change is detected. IMPRESSION: Heart size and pulmonary vascularity are at the upper limits of normal without significant change from previous study. Dictated on workstation # [id number] Dict: 07/15/20 1238 Trans: 07/15/20 1243 [facility] [id number] Interpreted by: JAYDEN LUND MD Electronically signed by: Departure Communication (Admissions) Time/Spoke to Admitting Phy: 15:[address] Eaton who accepts patient for admission, requests consult with Dr. Joseph Time/Spoke to Consulting Phy: 15:[address] Joseph and made him aware of the consultation Impression Primary Impression: Cellulitis of right leg without foot Disposition: ADMITTED INPATIENT Condition: Stable Admissions Decision to Admit Reason: Admit from ER (General) Decision to Admit/Date: Jul 15, 2020 Time/Decision to Admit Time: 15:00 Departure-Patient Inst. Referrals: [facility] [place] Primary Care Physician LAUREN BAIRD (Family) Primary Care Physician MICAH KIRBY MD Jul 15, 2020 11:54
[2020-07-15] MEDS ORDERED: VANCOMYCIN INJECTION 1,000 MG in NS (IVPB) 250 ML IV ONE (12:00)
[2020-07-15] MEDS ORDERED: NS IV 1000 ML 1,000 ML IV SCH (12:00)
[2020-07-15] MEDS ORDERED: ceFAZolin 2 GM IV Premixed 50 ML IV ONE (12:00)
[2020-07-15] MEDS ORDERED: ACETAMINOPHEN 500 MG TAB (TYLENOL) PO ONE (12:00)
[2020-07-15] MEDS ORDERED: VANCOMYCIN INJECTION 1,250 MG in NS (IVPB) 250 ML IV ONE (12:00)
[2020-07-15 12:18] LABS: BASOPHILS # (AUTO) 0.1 10^3/uL (0.0-0.1); BASOPHILS % (AUTO) 1 % (0-10); EOSINOPHILS % (AUTO) 0 % (0-10); HEMATOCRIT 42 % (35-52); HEMOGLOBIN 14.2 g/dL (11.5-16.0); LYMPHOCYTES % (AUTO) 9 % (12-44); MEAN CORPUSCULAR HEMOGLOBIN 31 pg (25-34); MEAN CORPUSCULAR HGB CONC 34 g/dL (32-36); MEAN CORPUSCULAR VOLUME 92 fL (80-99); MEAN PLATELET VOLUME 10.9 fL (9.0-12.2); MONOCYTES % (AUTO) 5 % (0-12); NEUTROPHILS # (AUTO) 18.2 10^3/uL (1.8-7.8); NEUTROPHILS % (AUTO) 85 % (42-75); PLATELET COUNT 400 10^3/uL (130-400); WHITE BLOOD COUNT 21.6 10^3/uL (4.3-11.0)
--- NOTE | 2020-07-15 12:43 | Diagnostic Imaging Report ---
Indication: Cough and fever Portable AP view of chest is obtained. Comparison is made study of 06/27/2020. Heart size and pulmonary vascularity are at the upper limits of normal however no overt edema is identified. There is no consolidation, pneumothorax or significant pleural fluid. No significant change is detected. IMPRESSION: Heart size and pulmonary vascularity are at the upper limits of normal without significant change from previous study. Dictated by: Dictated on workstation # [id number]
[2020-07-15 12:46] LABS: EOSINOPHILS % (MANUAL) 1 %; LYMPHOCYTES % (MANUAL) 9 %; MONOCYTES % (MANUAL) 5 %; NEUTROPHILS % (MANUAL) 85 %
[2020-07-15 12:47] LABS: RBC MORPH NORMAL
[2020-07-15 13:28] LABS: ALBUMIN 3.7 GM/DL (3.2-4.5); FIBRIN DEGRADATION PRODUCTS 0.57 UG/ML (0.00-0.49); PROTHROMBIN TIME PATIENT 13.9 SEC (12.2-14.7)
[2020-07-15 13:29] LABS: CHLORIDE 102 MMOL/L (98-107); SODIUM 134 MMOL/L (135-145)
[2020-07-15 13:30] LABS: CALCIUM 8.5 MG/DL (8.5-10.1)
[2020-07-15 13:31] LABS: GLUCOSE 110 MG/DL (70-105); TOTAL PROTEIN 7.1 GM/DL (6.4-8.2)
[2020-07-15 13:32] LABS: CARBON DIOXIDE 21 MMOL/L (21-32)
[2020-07-15 13:33] LABS: BILIRUBIN,TOTAL 0.5 MG/DL (0.1-1.0)
[2020-07-15 13:35] LABS: ALKALINE PHOSPHATASE 31 U/L (40-136); CREATININE SERUM 0.67 MG/DL (0.60-1.30); GFR ESTIMATED > 60
[2020-07-15 13:36] LABS: BUN/CREATININE RATIO 13
[2020-07-15 13:38] LABS: ALANINE AMINOTRANSFERASE 12 U/L (0-55)
[2020-07-15 13:43] LABS: BILIRUBIN,URINE NEGATIVE (NEGATIVE); CLARITY,URINE CLEAR; COLOR,URINE YELLOW; GLUCOSE, URINE (UA) NEGATIVE (NEGATIVE); KETONES,URINE NEGATIVE (NEGATIVE); LEUKOCYTE ESTERASE ,URINE NEGATIVE (NEGATIVE); NITRITE,URINE NEGATIVE (NEGATIVE); PH,URINE 6.5 (5-9); PROTEIN,URINE NEGATIVE (NEGATIVE)
[2020-07-15 13:54] LABS: BACTERIA,URINE NEGATIVE /HPF; RBC,URINE 0-2 /HPF; WBC,URINE 0-2 /HPF
--- NOTE | 2020-07-15 15:29 | NUR ---
Spoke to pt's via phone regarding admission.
--- NOTE | 2020-07-15 16:12 | NUR ---
CR 0.67; CR CL > 60; WT 56.6 KG; VANCO 1250 MG IV GIVEN IN ER; CONTINUE WITH VANCO 750 MG IV Q12H; TROUGH AFTER 3RD DOSE
[2020-07-15] MEDS ORDERED: PIPERACILLIN/TAZO 4.5 GM/NS 100 ML IV NR ×2 (16:15)
[2020-07-15] MEDS ORDERED: CATHETER FLUSH 10 ML SYR IV PRN (16:30)
[2020-07-15 16:47] VITALS: BP 149/79
[2020-07-15] MEDS: ACETAMINOPHEN 325 MG TABLET PO PRN (16:57)
[2020-07-15] MEDS: NS IV 1000 ML 1,000 ML IV SCH (16:57)
[2020-07-15 17:06] VITALS: BP 181/89
[2020-07-15] MEDS: PIPERACILLIN/TAZO 4.5 GM/NS 100 ML IV SCH ×4 (17:09→22:42)
[2020-07-15] MEDS: ENOXAPARIN 40 MG/0.4 ML (LOVENOX) SYR SC SCH (18:36)
[2020-07-15] MEDS: HYDROcodone/APAP 10 MG/325 MG (LORTAB) TAB PO PRN ×2 (18:36→22:40)
[2020-07-15] MEDS: RT-ALBUTEROL INHALER HFA (VENTOLIN HFA) 18 GM IH SCH ×2 (18:56→22:10)
[2020-07-15 19:00] VITALS: BP 181/89
[2020-07-15 20:00] VITALS: BP 134/72
[2020-07-15] MEDS ORDERED: FLU QUADRIvalent (3YOA+) 60 mcg/0.5 ml 2020-21 (AFLURIA) IM ONE (20:00)
[2020-07-16] MEDS ORDERED: NS (IVPB) 250 ML ONE (00:44)
[2020-07-16] MEDS ORDERED: VANCOMYCIN 750 MG/VIAL IV ONE (00:44)
[2020-07-16 00:52] VITALS: BP 142/67
[2020-07-16] MEDS: NS IV 1000 ML 1,000 ML IV SCH ×4 (01:33→17:26)
[2020-07-16] MEDS: VANCOMYCIN 750 MG/NS 250 ML IVPB IV SCH ×4 (01:33→13:20)
[2020-07-16 05:46] LABS: BASOPHILS # (AUTO) 0.1 10^3/uL (0.0-0.1); BASOPHILS % (AUTO) 1 % (0-10); EOSINOPHILS # (AUTO) 0.4 10^3/uL (0.0-0.3); EOSINOPHILS % (AUTO) 3 % (0-10); HEMATOCRIT 37 % (35-52); HEMOGLOBIN 11.8 g/dL (11.5-16.0); LYMPHOCYTES % (AUTO) 15 % (12-44); MEAN CORPUSCULAR HEMOGLOBIN 31 pg (25-34); MEAN CORPUSCULAR HGB CONC 32 g/dL (32-36); MEAN CORPUSCULAR VOLUME 94 fL (80-99); MEAN PLATELET VOLUME 9.9 fL (9.0-12.2); MONOCYTES # (AUTO) 0.8 10^3/uL (0.0-1.0); MONOCYTES % (AUTO) 6 % (0-12); NEUTROPHILS # (AUTO) 9.8 10^3/uL (1.8-7.8); NEUTROPHILS % (AUTO) 74 % (42-75); PLATELET COUNT 321 10^3/uL (130-400); WHITE BLOOD COUNT 13.2 10^3/uL (4.3-11.0)
[2020-07-16 06:11] LABS: ALBUMIN 3.4 GM/DL (3.2-4.5); CHLORIDE 107 MMOL/L (98-107); POTASSIUM 3.9 MMOL/L (3.6-5.0); SODIUM 138 MMOL/L (135-145)
[2020-07-16 06:12] LABS: CALCIUM 8.5 MG/DL (8.5-10.1)
[2020-07-16 06:13] LABS: GLUCOSE 126 MG/DL (70-105); TOTAL PROTEIN 6.5 GM/DL (6.4-8.2)
[2020-07-16 06:14] LABS: CARBON DIOXIDE 19 MMOL/L (21-32)
[2020-07-16 06:15] LABS: BILIRUBIN,TOTAL 0.2 MG/DL (0.1-1.0)
[2020-07-16 06:17] LABS: ALKALINE PHOSPHATASE 31 U/L (40-136); CREATININE SERUM 0.68 MG/DL (0.60-1.30); GFR ESTIMATED > 60
[2020-07-16 06:18] LABS: BUN/CREATININE RATIO 12
[2020-07-16 06:20] LABS: ALANINE AMINOTRANSFERASE 12 U/L (0-55)
[2020-07-16] MEDS: RT-ALBUTEROL INHALER HFA (VENTOLIN HFA) 18 GM IH SCH ×3 (06:48→21:05)
[2020-07-16] MEDS: PIPERACILLIN/TAZO 4.5 GM/NS 100 ML IV SCH ×4 (07:41→15:19)
[2020-07-16 08:00] VITALS: BP 150/70
[2020-07-16] MEDS: NICOTINE PATCH REMOVAL TP SCH ×3 (08:35→08:40)
[2020-07-16] MEDS: NICOTINE 21 MG (NICODERM) PATCH TD SCH (08:35)
[2020-07-16] MEDS ORDERED: GABA800T10 PO (10:42)
--- NOTE | 2020-07-16 10:54 | NUR ---
SPOKE WITH THE PT, WENT THRU THE EXT MED HISTORY, AND CALLED [facility] TO COMPLETE THE MED REC PT WAS ABLE TO NAME ALL HER MEDICATIONS WELL WHEN/HOW SHE TAKES EACH. ACCORDING TO THE PT SHE NO LONGER IS TAKING FAMOTIDINE. WHEN I WAS ASKING ABOUT HER MEDICATIONS SHE MENTIONED HEART MEDS AND SAID "WELL I DONT NEED THEM WHILE IM HERE" I LET HER KNOW THE IMPORTANCE OF US HAVING HER FULL CURRENT MEDICATION LIST. PT LET ME KNOW SHE HAS HEART MEDS (3 DIFFERENT MEDS PLUS ASPIRIN 81MG) AND RECEIVED THEM FROM THE REPOSITORY AT [facility]- BUT WAS HONEST THAT SHE HASNT TAKEN THEM IN MONTHS (WHEN I ASKED FOR HER TO SPECIFY "MONTHS" SHE INDICATES IT WAS AT LEAST THIS SUMMER SINCE SHE TOOK THEM). I CALLED [facility] AND SPOKE WITH MIHAI BAIRD'S NURSE AND SHE HAS THE FOLLOWING ON THE CURRENT MED LIST, HOWEVER THE NURSE COULDNT SEE WHERE THESE HAD EVER BEEN GIVEN THROUGH THE REPOSITORY: METOPROLOL SUCC 25MG ATORVASTATIN 20MG LISINOPRIL 5MG ASPIRIN 81MG
[2020-07-16] MEDS: HYDROcodone/APAP 10 MG/325 MG (LORTAB) TAB PO PRN ×3 (10:55→20:15)
--- NOTE | 2020-07-16 10:59 | CONSULTATION REPORT ---
DATE OF SERVICE: 07/16/2020 ATTENDING PRIMARY CARE PHYSICIAN: Ky Murray APRN. ADMITTING PHYSICIAN: Dr. Radford. HISTORY OF PRESENT ILLNESS: The patient is a 59-year-old female with redness, warmth and pain along the medial aspect of the right calf. She has had this before. She has also had several hospitalizations due to pneumonia and sepsis. She states that she noticed the redness and swelling and did have a fever at home. She is status post coronary artery bypass grafting with veins harvested from bilateral lower extremities. Upon examination, there is redness, swelling and induration consistent with the cellulitis. There is no fluctuance to indicate any abscess. PAST MEDICAL HISTORY: Coronary artery disease, hypertension, hypercholesterolemia, peripheral vascular disease, degenerative joint disease, history of pneumonia, history of myocardial infarction 07/2018 and psoriasis. PAST SURGICAL HISTORY: 1. A 4-vessel coronary artery bypass graft 07/2018. 2. Total hysterectomy. 3. Right mastoid bone excision. ALLERGIES: No known drug allergies. MEDICATIONS: Cefdinir 300 mg b.i.d., famotidine 20 mg p.r.n., gabapentin 800 mg q.i.d., hydrocodone p.r.n., Protonix 20 mg daily, promethazine 25 mg p.r.n. and ropinirole 6 mg daily. SOCIAL HISTORY: Positive smoke 40 pack years. Negative alcohol. FAMILY HISTORY: Noncontributory. REVIEW OF SYSTEMS: This is a well-nourished female currently in no acute distress. She is not experiencing any shortness of breath or difficulty in breathing. No chest pain, palpitations or diaphoresis. No nausea, vomiting, no diarrhea or constipation. She did have fevers and chills at home. No recent inadvertent weight loss. All other review of systems negative. PHYSICAL EXAMINATION: VITAL SIGNS: Temperature 36.2, blood pressure 150/70, pulse 77, respirations 16 and pulse ox 95% on room air. CHEST: Distant breath sounds and scattered rales bilaterally. HEART: Regular, no murmurs. EXTREMITIES: No lower extremity edema, negative Homans sign on the medial aspect of the right calf, there is redness, erythema and induration with no fluctuance. HEENT: No scleral icterus. NECK: No cervical lymphadenopathy. ABDOMEN: Soft, nontender and nondistended. SKIN: Warm, dry. LABORATORY DATA: WBC 13.2, hemoglobin 11.8, hematocrit 37 and platelets 321. BUN 12, creatinine 8. ASSESSMENT AND PLAN: A 59-year-old female with cellulitis of the right lower extremity, likely secondary to peripheral vascular disease and poor blood perfusion exacerbated by the vasoconstriction associated with smoking. We will treat her conservatively with IV antibiotics and continue to monitor her clinical progress as well as potential development of an abscess. Job ID: [id number] DocumentID: [id number] Dictated Date: 07/16/2020 10:21:33 Graduate Civil Engineer Date: 07/16/2020 10:58:39 Dictated By: DELTA BETH MD
[2020-07-16 12:00] VITALS: BP 145/77
--- NOTE | 2020-07-16 13:57 | History & Physical ---
GERMAN POLLARD MED STUDENT 07/16/20 1357: HPI History of Present Illness: Mrs. Kacie Mora is a 59 y/o female who presented on 07/15 with progressive SOB, cough productive of minimal sputum, and subjective fevers. She started having these symptom on 07/14 and they progressively got worse until she presented to the ED. She notes that she was hospitalized 2 weeks ago for pneumonia/sepsis and reports that she is experiencing a similar presentation to last time. Additio darrin, she notes puritus, rubor, and calor on her right michel-medial calf and in her right groin area. She states that this started on 07/15 and is painful to the touch. Since her admission her respiratory symptoms have improved and her rash is her main concern. Source: patient Exam Limitations: no limitations Date seen by provider: Jul 16, 2020 Time Seen by Provider: 12:05 Attending Physician Nina Jeronimo MD PCP Center/[facility] [place],[facility] Consult Date of Admission Jul 15, 2020 at 15:10 Home Medications Home Medications Reviewed patient Home Medication Reconciliation performed by pharmacy medication reconciliations field evidence technician and/or nursing. Patients Allergies have been reviewed. Allergies Coded Allergies: No Known Drug Allergies (Unverified , 08/23/18) BWI-Sivggt-Hhkqnd Hx Patient Social History Marrital Status: Living Status: Lives at home with Alcohol Use: Denies Use Recreational Drug Use: No Smoking Status: Current Everyday Smoker Cigaretts per day: 20 Type Used: Cigarettes 2nd Hand Smoke Exposure: Yes Recent Foreign Travel: No Contact w/other who traveled: No Recent Hopitalizations: Yes (07/03 pneumonia) Recent Infectious Disease Expo: No Physical Abuse Screen: No Immunizations Up To Date Tetanus Booster (TDap): Unknown Date of Pneumonia Vaccine: Jul 17, 2017 Date of Influenza Vaccine: Aug 03, 2018 Past Medical History PMHx: Coronary artery disease, s/p CABG 07/2018 Anxiety Chronic pain HTN RLS PSurgHx: CABG Family Medical History Significant Family History: Diabetes, Hypertension Review of Systems ([facility]) Constitutional: No chills, No diaphoresis, No dizziness; fever; No malaise; weight gain EENTM: nose congestion; No hearing loss, No ear pain, No blurred vision, No double vision, No vision loss Respiratory: cough, dyspnea on exertion; No hemoptysis; phlegm, short of breath; No stridor, No wheezing Cardiovascular: No chest pain, No palpitations, No syncope Gastrointestinal: No abdominal pain; constipation; No diarrhea, No dysphagia, No hematemesis, No heartburn, No melena; nausea, vomiting Genitourinary: No dysuria, No frequency, No hematuria, No pain Musculoskeletal: no symptoms reported Skin: see HPI, pruritus, rash Psychiatric/Neurological: Anxiety Reviewed Test Results Reviewed Test Results Lab Pertinent labs reviewed. Radiology Pertinent imaging reviewed. Physical Exam-([facility]) Physical Exam Vital Signs VS - Last 72 Hours, by Label 07/15/20 07/15/20 07/15/20 07/15/20 11:30 15:50 16:26 16:47 Temp 37.0 37.0 37.0 Pulse 128 102 102 Resp 22 20 B/P (MAP) 153/83 (106) 149/79 (106) Pulse Ox 93 94 94 94 O2 Delivery Room Air Room Air Room Air 07/15/20 07/15/20 07/15/20 07/15/20 17:06 18:56 19:00 20:00 Temp 36.1 36.1 Pulse 104 104 Resp 16 16 B/P (MAP) 181/89 (119) 181/89 Pulse Ox 93 95 93 O2 Delivery Room Air Room Air Room Air Room Air 07/15/20 07/15/20 07/16/20 07/16/20 20:00 22:10 00:52 06:48 Temp 36.1 36.7 Pulse 99 83 Resp 16 20 B/P (MAP) 134/72 (92) 142/67 (92) Pulse Ox 92 97 96 95 O2 Delivery Room Air Room Air Room Air Room Air 07/16/20 07/16/20 07/16/20 08:00 08:00 12:00 Temp 36.2 36.5 Pulse 77 91 Resp 16 24 B/P (MAP) 150/70 (96) 145/77 (99) Pulse Ox 95 94 O2 Delivery Room Air Room Air Room Air Capillary Refill : Less Than 3 SecondsLess Than 3 Seconds Eyes: Bilateral Eye Normal Inspection, Bilateral Eye PERRL, Bilateral Eye EOMI HEENT: PERRL/EOMI; No scleral icterus (L), No pale conjunctivae (R), No pale conjunctivae (L), No photophobia Neck: full range of motion, supple; No carotid bruit Respiratory: chest non-tender, no respiratory distress, no accessory muscle use; No accessory muscle use; crackles, rhonchi; No stridor, No plerual rub, No other Cardiovascular: regular rate, rhythm, no murmur; No JVD Peripheral Pulses: 2+ Radial Pulses (R), 2+ Radial Pulses (L) Gastrointestinal: normal bowel sounds, non tender, soft, no organomegaly, no pulsatile mass Extremities: normal range of motion, normal capillary refill Neurologic/Psychiatric: no motor/sensory deficits, alert, normal mood/affect, oriented x 3 Skin: warm/dry; No cyanosis, No diaphoresis; rash Assessment/Plan Assessment/Plan Admission Dx Sepsis Assessment & Plan Mrs. Kacie Mora is a 59 y/o female with a past medical history significant for COPD who presented on 07/15 with progressive SOB, cough productive of minimal sputum, and subjective fevers meeting SIRS criteria. Additionally, she notes puritus, rubor, and calor on her right michel-medial calf and in her right groin area. Rewpiratory symptoms have dramatically improved. 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 She is unsure of dosing - Confirm DISHCLOTH FOLDER medications - Start DISHCLOTH FOLDER Metoprolo 25 mg for hypertension (1) Cellulitis of right leg without foot Status: Acute Clinical Quality Measures DVT/VTE Risk/Contraindication: Risk Factor Score Per Nursin RFS Level Per Nursing on Admit: 4+=Very High NINA JERONIMO MD 07/16/20 002: Home Medications Allergies Coded Allergies: No Known Drug Allergies (Unverified , 08/23/18) Physical Exam-([facility]) Physical Exam General Appearance: no apparent distress HEENT: photophobia Respiratory: no respiratory distress, no accessory muscle use Cardiovascular: regular rate, rhythm; No no murmur Peripheral Pulses: 2+ Dorsalis Pedis (R), 2+ Left Dors-Pedis (L) Gastrointestinal: normal bowel sounds, non tender, soft, no organomegaly Extremities: no pedal edema, normal capillary refill Neurologic/Psychiatric: alert, normal mood/affect Skin: warm/dry, other (erythema to right calf and right groin) Assessment/Plan Assessment/Plan Admission Status: Inpatient Order (span 2 midnights) Reason for Inpatient Admission: Cellulitis with sepsis Supervisory-Addendum Brief Verification & Attestation Participated in pt care: history, MDM, physical Personally performed: exam, history, MDM Care discussed with: Medical Student Procedures: n/a I personally examined this patient and did my own history and physical and agree with student documentation. See my physical exam for the exam I performed. GERMAN Cuello MED STUDENT Jul 16, 2020 13:57 NINA JERONIMO MD Jul 16, 2020 18:15
--- NOTE | 2020-07-16 14:37 | NUR ---
RD ASSESSMENT PMHx: pneumonia; COPD; CAD; [place]; hypercholesterolemia; HTN; PT INTERACTION: Pt was awake and pleasant during nutrition assessment. Pt states current appetite is "so-so" and has been this way for some time. Note avg PO intake 50% x3meal, per chart review. Pt states following a regular diet at home, and has no issues with chewing/swallowing food. Pt states some recent issues with nausea and vomiting. Note last BM was 07/15, and pt not currently on bowel regimen per chart review. Pt states recent wt gain, but was unsure of amount/timeframe. Note unable to determine recent wt hx, per chart review. Note presence of wounds (R 2nd toe; L 2nd and 4th toe), per chart review. ABNORMAL NUTRITION-RELATED LAB VALUES LOW: alkphos 31; HIGH: glu 126; Est. kcal needs: 5902-3418 kcal | 25-30 kcal/kg Est. Pro needs: 59-70 g Pro | 1.0-1.2 g Pro/kg PES STATEMENT: Inadequate oral intake (NI-2.1) related to loss of appetite, nausea, and vomiting, as evidenced by pt interview, and avg PO intake 50% x3meal. Inadequate protein intake (NI-5.6.1) related to increased protein needs as evidenced by presence of wounds (R 2nd toe; L 2nd and 4th toe). INTERVENTION: Continue with current diet order of Regular diet. Add Ensure Enlive (vary) to meals TID, for increased kcal and protein intake. Provides 350 kcal and 20 g Pro per serving. Will continue to follow and reassess as pt needs, intake, and status change. Karl Mcdonald, RD LD [phone] cell
[2020-07-16 15:53] VITALS: BP 152/71
--- NOTE | 2020-07-16 16:53 | NUR ---
I HAVE REVIEWED CHARTING OF FLORIN RN PRECEPTOR AND AGREE WITH DOCUMENTATION.
[2020-07-16] MEDS: ENOXAPARIN 40 MG/0.4 ML (LOVENOX) SYR SC SCH (18:15)
[2020-07-16] MEDS ORDERED: PHARMACY TO DOSE SQ SCH (18:30)
[2020-07-16 19:02] VITALS: BP 152/67
[2020-07-16] MEDS: GABAPENTIN 400 MG (NEURONTIN) CAP PO SCH (20:15)
[2020-07-16] MEDS: rOPINIRole 1 MG (REQUIP) TABLET PO SCH (20:15)
[2020-07-16] MEDS: rOPINIRole 5 MG TAB (REQUIP) PO SCH (20:15)
[2020-07-16] MEDS: PROMETHAZINE 25 MG (PHENERGAN) TAB PO PRN (20:29)
[2020-07-16] MEDS ORDERED: NON-FORMULARY MEDICATION 1 EA EA (Gabapentin 1,600 MG) PO SCH (21:00)
[2020-07-16] MEDS ORDERED: NON-FORMULARY MEDICATION 1 EA EA (Gabapentin 800 MG) PO SCH (21:00)
[2020-07-16 23:32] VITALS: BP 140/67
[2020-07-17] MEDS ORDERED: TROUGH ORDER-PHARMACY XX NR
[2020-07-17 00:18] VITALS: BP 141/70
[2020-07-17 00:42] LABS: HEMOGLOBIN 11.6 g/dL (11.5-16.0); MEAN PLATELET VOLUME 9.5 fL (9.0-12.2); WHITE BLOOD COUNT 10.2 10^3/uL (4.3-11.0)
[2020-07-17] MEDS: CLINDAMYCIN 150 MG (CLEOCIN) CAP PO SCH ×5 (00:53→23:07)
[2020-07-17 01:00] LABS: CHLORIDE 109 MMOL/L (98-107); POTASSIUM 3.6 MMOL/L (3.6-5.0); SODIUM 137 MMOL/L (135-145)
[2020-07-17 01:02] LABS: CALCIUM 8.3 MG/DL (8.5-10.1); GLUCOSE 125 MG/DL (70-105)
[2020-07-17 01:04] LABS: CARBON DIOXIDE 16 MMOL/L (21-32)
[2020-07-17 01:06] LABS: CREATININE SERUM 0.58 MG/DL (0.60-1.30); GFR ESTIMATED > 60
[2020-07-17 01:07] LABS: BUN/CREATININE RATIO 5
[2020-07-17] MEDS: NS IV 1000 ML 1,000 ML IV SCH (01:34)
[2020-07-17] MEDS: HYDROcodone/APAP 10 MG/325 MG (LORTAB) TAB PO PRN ×4 (01:34→21:02)
[2020-07-17 04:10] VITALS: BP 117/69
[2020-07-17] MEDS: RT-ALBUTEROL INHALER HFA (VENTOLIN HFA) 18 GM IH SCH ×4 (04:25→19:49)
[2020-07-17 07:30] VITALS: BP 166/78
[2020-07-17] MEDS: NICOTINE 21 MG (NICODERM) PATCH TD SCH (08:55)
[2020-07-17] MEDS: PANTOPRAZOLE 20 MG TABLET (PROTONIX) PO SCH (08:56)
[2020-07-17] MEDS: GABAPENTIN 400 MG (NEURONTIN) CAP PO SCH ×3 (08:56→21:01)
[2020-07-17] MEDS: NICOTINE PATCH REMOVAL TP SCH (08:56)
[2020-07-17] MEDS: lisINopril 5 MG (PRINIVIL) TABLET PO SCH (08:56)
--- NOTE | 2020-07-17 09:00 | NUR ---
LORTAB 10 PO FOR GENERAL DISCOMFORT.
[2020-07-17 11:10] VITALS: BP 140/66
--- NOTE | 2020-07-17 11:27 | Progress Note - Hospitalist ---
Subjective HPI/CC On Admission Date Seen by Provider: Jul 17, 2020 Time Seen by Provider: 10:30 Subjective/Events-last exam Patient complains of leg pain primarily and that seems to be up in the groin. It hurts to walk she complains of a little bit of shortness of breath but her chest x-ray has been okay. She does not want to go home because she smokes at home and feels like that that has impacted her negatively. Review of Systems Pulmonary: Dyspnea, Cough Musculoskeletal: leg pain Focused Exam Lactate Level 07/15/20 12:00: Lactic Acid Level 1.32 Objective Exam Vital Signs Vital Signs Date Time Temp Pulse Resp B/P (MAP) Pulse Ox O2 Delivery O2 Flow Rate FiO2 07/17/20 11:10 37.1 60 18 140/66 (90) 96 Room Air Capillary Refill : Less Than 3 SecondsLess Than 3 Seconds General Appearance: Other (Tearful) Neck: Limited Range of Motion Respiratory: Rales, Wheezing Cardiovascular: Regular Rate, Rhythm, Systolic Murmur Gastrointestinal: Normal Bowel Sounds, Non Tender, Soft Rectal: Deferred Extremity: Calf Tenderness, Inflammation, Other (Erythema warmth and scabs along the bilateral legs along the venous harvest sites from her CABG) Neurologic/Psychiatric: Alert, Oriented x3, Depressed Affect Results/Procedures Lab Laboratory Tests 07/17/20 00:30 Patient resulted labs reviewed. 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 She is unsure of dosing Coronary artery disease COPD we will make sure that she gets met protocol UTI with Enterococcus faecalis sensitivities pending-we will start vancomycin per protocol Clinical Quality Measures DVT/VTE Risk/Contraindication: Risk Factor Score Per Nursin RFS Level Per Nursing on Admit: 4+=Very High CECILIA VALLEJO MD Jul 17, 2020 11:27
[2020-07-17] MEDS ORDERED: VANCOMYCIN INJECTION 0.1 MG in NS (IVPB) 250 ML IV SCH (11:30)
--- NOTE | 2020-07-17 11:59 | Progress Note ---
Subjective Date Seen by a Provider: Jul 17, 2020 Time Seen by a Provider: 11:50 Subjective/Events-last exam doing better. decreased leg pain as well as erythema/redness. no fluctuance. Focused Exam Lactate Level 07/15/20 12:00: Lactic Acid Level 1.32 Objective Exam Vital Signs Date Time Temp Pulse Resp B/P (MAP) Pulse Ox O2 Delivery O2 Flow Rate FiO2 07/17/20 11:10 37.1 60 18 140/66 (90) 96 Room Air 07/17/20 09:42 98 Room Air 07/17/20 08:46 98 Room Air 07/17/20 07:30 36.5 75 16 166/78 (107) 98 Room Air 07/17/20 04:10 36.4 96 18 117/69 (85) 95 Room Air 07/17/20 00:18 36.9 78 20 141/70 (93) 96 Room Air 07/16/20 23:32 37.0 76 18 140/67 (91) 96 Room Air 07/16/20 21:05 97 Room Air 07/16/20 20:15 Room Air 07/16/20 19:02 36.9 85 16 152/67 (95) 98 Room Air 07/16/20 15:53 36.3 101 16 152/71 (98) 97 Room Air 07/16/20 14:54 96 Room Air 07/16/20 12:00 36.5 91 24 145/77 (99) 94 Room Air I & O 07/17/20 07:00 Intake Total 3997.5 ml Output Total 2500 ml Balance 1497.5 ml Capillary Refill : Less Than 3 SecondsLess Than 3 Seconds General Appearance: No Apparent Distress HEENT: PERRL/EOMI Neck: Full Range of Motion Respiratory: Chest Non Tender, Wheezing Cardiovascular: Regular Rate, Rhythm Gastrointestinal: normal bowel sounds, non tender, soft Extremity: Normal Capillary Refill Neurologic/Psychiatric: Alert, Oriented x3 Skin: Normal Color Lymphatic: No Adenopathy Results Lab Laboratory Tests 07/17/20 00:30: White Blood Count 10.2, Red Blood Count 3.80, Hemoglobin 11.6, Hematocrit 37, Mean Corpuscular Volume 97, Mean Corpuscular Hemoglobin 31, Mean Corpuscular Hemoglobin Concent 32, Red Cell Distribution Width 13.9, Platelet Count 290, Mean Platelet Volume 9.5, Sodium Level 137, Potassium Level 3.6, Chloride Level 109H, Carbon Dioxide Level 16L, Anion Gap 12, Blood Urea Nitrogen 3L, Creatinine 0.58L, Estimat Glomerular Filtration Rate > 60, BUN/Creatinine Ratio 5, Glucose Level 125H, Calcium Level 8.3L, Vancomycin Level Trough 12.6 Microbiology 07/15/20 Urine Culture - Preliminary, Resulted Enterococcus faecalis Susceptibility To Follow 07/15/20 Blood Culture - Preliminary, Resulted No growth 07/15/20 Influenza Types A,B Antigen (MARCY) - Final, Complete Assessment/Plan Assessment/Plan Assess & Plan/Chief Complaint right leg cellulitis. PAD/smoking related. cont bx PO for home. needs definite smoking cessation Clinical Quality Measures DVT/VTE Risk/Contraindication: Risk Factor Score Per Nursin RFS Level Per Nursing on Admit: 4+=Very High DELTA BETH MD Jul 17, 2020 11:59
[2020-07-17] MEDS: VANCOMYCIN 750 MG/NS 250 ML IVPB IV SCH ×2 (12:58)
--- NOTE | 2020-07-17 14:20 | NUR ---
LORTAB 10 PO FOR PAIN.
[2020-07-17 16:00] VITALS: BP 122/60
[2020-07-17] MEDS: ENOXAPARIN 40 MG/0.4 ML (LOVENOX) SYR SC SCH (18:01)
[2020-07-17 19:52] VITALS: BP 127/69
[2020-07-17] MEDS: rOPINIRole 1 MG (REQUIP) TABLET PO SCH (21:01)
[2020-07-17] MEDS: rOPINIRole 5 MG TAB (REQUIP) PO SCH (21:01)
--- NOTE | 2020-07-17 21:16 | NUR ---
WHEN ASSESSING PT, PT REPORTS PAIN IN THE CHEST/STOMACH AREA. DESCRIBES IT TIGHT AND IF HER RIBS ARE SQUEEZING HER. STATES THAT A FEW HOURS AGO SHE HAD SOME JAW PAIN BUT IT WENT AWAY. PT VITALS OBTAINED AT THIS TIME, B/P 147/70, HEART RATE 63. DR VALLEJO NOTIFIED, ORDERED TELEMETRY, EKG, TROPONIN LAB, AND ONE TIME MORPHINE 2MG IV.
[2020-07-17] MEDS ORDERED: morphine INJ 10 MG/ML 1ML (SYR OR VIAL) IVP STA (21:20)
[2020-07-17] MEDS ORDERED: morphine INJ 4 MG/ML 1 ML (VIAL/SYRINGE) IVP ONE (23:00)
[2020-07-17] MEDS ORDERED: morphine INJ 4 MG/ML 1 ML (VIAL/SYRINGE) ONE (23:02)
[2020-07-18] VITALS (7 sets, daily range): BP systolic 123–158; BP diastolic 58–80
[2020-07-18] MEDS: VANCOMYCIN 750 MG/NS 250 ML IVPB IV SCH ×4 (01:22→11:54)
[2020-07-18] MEDS: RT-ALBUTEROL INHALER HFA (VENTOLIN HFA) 18 GM IH SCH ×4 (02:07→21:51)
[2020-07-18] MEDS: HYDROcodone/APAP 10 MG/325 MG (LORTAB) TAB PO PRN ×4 (03:27→20:26)
[2020-07-18] MEDS: CLINDAMYCIN 150 MG (CLEOCIN) CAP PO SCH ×3 (06:17→17:35)
[2020-07-18] MEDS: PANTOPRAZOLE 20 MG TABLET (PROTONIX) PO SCH (08:51)
[2020-07-18] MEDS: NICOTINE 21 MG (NICODERM) PATCH TD SCH (08:51)
[2020-07-18] MEDS: GABAPENTIN 400 MG (NEURONTIN) CAP PO SCH ×3 (08:51→20:26)
[2020-07-18] MEDS: NICOTINE PATCH REMOVAL TP SCH (08:51)
[2020-07-18] MEDS: lisINopril 5 MG (PRINIVIL) TABLET PO SCH (08:51)
--- NOTE | 2020-07-18 12:54 | Progress Note - Hospitalist ---
Subjective HPI/CC On Admission Date Seen by Provider: Jul 18, 2020 Time Seen by Provider: 13:00 Subjective/Events-last exam Patient currently is feeling good this morning. She had some chest discomfort overnight. This was relieved without any medication. Her troponin was negative. She says her legs feels much better. Review of Systems Musculoskeletal: leg pain Objective Exam Vital Signs Vital Signs Date Time Temp Pulse Resp B/P (MAP) Pulse Ox O2 Delivery O2 Flow Rate FiO2 07/18/20 12:00 36.0 76 18 150/80 (103) 98 Room Air Capillary Refill : Less Than 3 SecondsLess Than 3 Seconds General Appearance: No Apparent Distress, WD/WN Neck: Normal Inspection, Non Tender, Supple Respiratory: No Accessory Muscle Use, No Respiratory Distress, Wheezing Cardiovascular: Regular Rate, Rhythm, Systolic Murmur Gastrointestinal: Normal Bowel Sounds, Non Tender, Soft Rectal: Deferred Extremity: Inflammation, Pedal Edema, Other (Erythema and onychomycosis and scaling of the toes) Neurologic/Psychiatric: Alert, Oriented x3, Normal Mood/Affect Results/Procedures Lab Patient resulted labs reviewed. 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 She is unsure of dosing Coronary artery disease-chest pain possibly noncardiac COPD we will make sure that she gets mat protocol-using a NicoDerm patch and encouraged to stop smoking UTI with Enterococcus faecalis less than 10 to the fifth-on vancomycin per protocol-which is doing a good job treating her leg Clinical Quality Measures DVT/VTE Risk/Contraindication: Risk Factor Score Per Nursin RFS Level Per Nursing on Admit: 4+=Very High CECILIA VALLEJO MD Jul 18, 2020 12:54
[2020-07-18] MEDS: ENOXAPARIN 40 MG/0.4 ML (LOVENOX) SYR SC SCH (17:35)
[2020-07-18] MEDS: rOPINIRole 1 MG (REQUIP) TABLET PO SCH (20:26)
[2020-07-18] MEDS: rOPINIRole 5 MG TAB (REQUIP) PO SCH (20:26)
[2020-07-19] MEDS: VANCOMYCIN 750 MG/NS 250 ML IVPB IV SCH ×4 (00:25→13:11)
[2020-07-19] MEDS: HYDROcodone/APAP 10 MG/325 MG (LORTAB) TAB PO PRN ×3 (00:25→11:19)
[2020-07-19] MEDS: CLINDAMYCIN 150 MG (CLEOCIN) CAP PO SCH ×3 (00:25→11:19)
[2020-07-19] MEDS: RT-ALBUTEROL INHALER HFA (VENTOLIN HFA) 18 GM IH SCH ×2 (04:01→08:34)
[2020-07-19 07:29] LABS: BASOPHILS # (AUTO) 0.2 10^3/uL (0.0-0.1); BASOPHILS % (AUTO) 2 % (0-10); EOSINOPHILS # (AUTO) 0.7 10^3/uL (0.0-0.3); EOSINOPHILS % (AUTO) 8 % (0-10); HEMATOCRIT 41 % (35-52); HEMOGLOBIN 12.1 g/dL (11.5-16.0); LYMPHOCYTES # (AUTO) 2.8 10^3/uL (1.0-4.0); LYMPHOCYTES % (AUTO) 33 % (12-44); MEAN CORPUSCULAR HEMOGLOBIN 30 pg (25-34); MEAN CORPUSCULAR HGB CONC 29 g/dL (32-36); MEAN CORPUSCULAR VOLUME 103 fL (80-99); MEAN PLATELET VOLUME 9.7 fL (9.0-12.2); MONOCYTES # (AUTO) 0.8 10^3/uL (0.0-1.0); MONOCYTES % (AUTO) 9 % (0-12); NEUTROPHILS # (AUTO) 3.9 10^3/uL (1.8-7.8); NEUTROPHILS % (AUTO) 46 % (42-75); PLATELET COUNT 288 10^3/uL (130-400); WHITE BLOOD COUNT 8.5 10^3/uL (4.3-11.0)
[2020-07-19 07:57] LABS: ALANINE AMINOTRANSFERASE 13 U/L (0-55); ALBUMIN 3.5 GM/DL (3.2-4.5); ALKALINE PHOSPHATASE 24 U/L (40-136); BILIRUBIN,TOTAL 0.3 MG/DL (0.1-1.0); BUN/CREATININE RATIO 10; CARBON DIOXIDE 19 MMOL/L (21-32); CHLORIDE 106 MMOL/L (98-107); CREATININE SERUM 0.59 MG/DL (0.60-1.30); GFR ESTIMATED > 60; GLUCOSE 89 MG/DL (70-105); POTASSIUM 4.6 MMOL/L (3.6-5.0); SODIUM 139 MMOL/L (135-145); TOTAL PROTEIN 6.2 GM/DL (6.4-8.2)
[2020-07-19 08:00] VITALS: BP 184/67
[2020-07-19] MEDS: GABAPENTIN 400 MG (NEURONTIN) CAP PO SCH (08:12)
[2020-07-19] MEDS: PANTOPRAZOLE 20 MG TABLET (PROTONIX) PO SCH (08:12)
[2020-07-19] MEDS: lisINopril 5 MG (PRINIVIL) TABLET PO SCH (08:12)
[2020-07-19] MEDS: NICOTINE 21 MG (NICODERM) PATCH TD SCH (08:12)
[2020-07-19] MEDS: NICOTINE PATCH REMOVAL TP SCH (08:13)
[2020-07-19] MEDS: PROMETHAZINE 25 MG (PHENERGAN) TAB PO PRN (09:18)
[2020-07-19] MEDS: ACETAMINOPHEN 325 MG TABLET PO PRN (09:18)
[2020-07-19] MEDS ORDERED: CLIN150C17 PO (10:47)
[2020-07-19] MEDS ORDERED: ATOR40TA PO (10:47)
[2020-07-19] MEDS ORDERED: MTP25TSR PO (10:47)
[2020-07-19] MEDS ORDERED: ACHYD1T PO (10:47)
[2020-07-19] MEDS ORDERED: LISI-556 PO (10:47)
--- NOTE | 2020-07-19 11:03 | Discharge Summary ---
Diagnosis/Chief Complaint Date of Admission Jul 15, 2020 at 15:10 Date of Discharge July 19, 2020 at 1300 Discharge Date: Jul 19, 2020 Discharge Time: 13:00 Admission Diagnosis Cellulitis COPD Hypertension Coronary artery disease Referral vascular disease Primary Care Kelton Murray Discharge Diagnosis Cellulitis (1) Coronary artery disease Status: Chronic (2) COPD (chronic obstructive pulmonary disease) Status: Chronic (3) Leukocytosis Status: Acute (4) Cellulitis of right leg without foot Status: Acute (5) Hx of CABG Status: Chronic Discharge Summary Procedures/Consulations Dr. BETH Discharge Physical Exam Allergies: Coded Allergies: No Known Drug Allergies (Unverified , 08/23/18) Vitals & I&Os Vital Signs Date Time Temp Pulse Resp B/P (MAP) Pulse Ox O2 Delivery O2 Flow Rate FiO2 07/19/20 08:34 98 Room Air 07/19/20 08:00 36.4 66 20 184/67 (106) General Appearance: No Apparent Distress, WD/WN Respiratory: Chest Non Tender, Normal Breath Sounds, No Accessory Muscle Use, No Respiratory Distress, Expiration, Wheezing Cardiovascular: Regular Rate, Rhythm, Systolic Murmur (Over 6) Gastrointestinal: Normal Bowel Sounds, No Organomegaly, Non Tender, Soft Extremity: Calf Tenderness, Inflammation Skin: Erythema Neurologic/Psychiatric: Alert, Oriented x3, No Motor/Sensory Deficits, Normal Mood/Affect, fiber heel piece shaper II-XII Norm as Tested Hospital Course Was the Problem List Reviewed?: Yes Patient was admitted with a diagnosis of cellulitis of bilateral lower extremities and venous stasis from her previous vein harvest. The patient was pleased to stop smoking during this hospitalization had some concerns about going home and restarting smoking. Her lower leg improved dramatically with vancomycin and clindamycin. UA was obtained which showed less than 10 to the fifth of Enterococcus faecalis. The patient remained afebrile. White count was 21,000 which is normal at the time of discharge. She is ambulating without difficulty. Chest x-ray showed no infiltrate. Patient was seen in consultation by Dr. BETH who felt that no surgical intervention was necessary. That she did have peripheral vascular disease and smoking cessation was encouraged. Labs (last 24 hrs) Laboratory Tests 07/19/20 06:22: White Blood Count 8.5, Red Blood Count 4.01, Hemoglobin 12.1, Hematocrit 41, Mean Corpuscular Volume 103H, Mean Corpuscular Hemoglobin 30, Mean Corpuscular Hemoglobin Concent 29L, Red Cell Distribution Width 13.6, Platelet Count 288, Mean Platelet Volume 9.7, Immature Granulocyte % (Auto) 2, Neutrophils (%) (Auto) 46, Lymphocytes (%) (Auto) 33, Monocytes (%) (Auto) 9, Eosinophils (%) (Auto) 8, Basophils (%) (Auto) 2, Neutrophils # (Auto) 3.9, Lymphocytes # (Auto) 2.8, Monocytes # (Auto) 0.8, Eosinophils # (Auto) 0.7H, Basophils # (Auto) 0.2H, Immature Granulocyte # (Auto) 0.2H, Sodium Level 139, Potassium Level 4.6, Chloride Level 106, Carbon Dioxide Level 19L, Anion Gap 14, Blood Urea Nitrogen 6L, Creatinine 0.59L, Estimat Glomerular Filtration Rate > 60, BUN/Creatinine Ratio 10, Glucose Level 89, Calcium Level 9.0, Corrected Calcium 9.4, Total Bilirubin 0.3, Aspartate Amino Transf (AST/SGOT) 19, Alanine Aminotransferase (ALT/SGPT) 13, Alkaline Phosphatase 24L, Total Protein 6.2L, Albumin 3.5 Microbiology 07/15/20 Urine Culture - Final, Complete Enterococcus faecalis 07/15/20 Blood Culture - Preliminary, Resulted No growth 07/15/20 Influenza Types A,B Antigen (MARCY) - Final, Complete Patient resulted labs reviewed. Pending Labs Laboratory Tests 07/19/20 06:22: White Blood Count 8.5, Red Blood Count 4.01, Hemoglobin 12.1, Hematocrit 41, Mean Corpuscular Volume 103, Mean Corpuscular Hemoglobin 30, Mean Corpuscular Hemoglobin Concent 29, Red Cell Distribution Width 13.6, Platelet Count 288, Mean Platelet Volume 9.7, Immature Granulocyte % (Auto) 2, Neutrophils (%) (Auto) 46, Lymphocytes (%) (Auto) 33, Monocytes (%) (Auto) 9, Eosinophils (%) (Auto) 8, Basophils (%) (Auto) 2, Neutrophils # (Auto) 3.9, Lymphocytes # (Auto) 2.8, Monocytes # (Auto) 0.8, Eosinophils # (Auto) 0.7, Basophils # (Auto) 0.2, Immature Granulocyte # (Auto) 0.2, Sodium Level 139, Potassium Level 4.6, Chloride Level 106, Carbon Dioxide Level 19, Anion Gap 14, Blood Urea Nitrogen 6, Creatinine 0.59, Estimat Glomerular Filtration Rate > 60, BUN/Creatinine Ratio 10, Glucose Level 89, Calcium Level 9.0, Corrected Calcium 9.4, Total Bilirubin 0.3, Aspartate Amino Transf (AST/SGOT) 19, Alanine Aminotransferase (ALT/SGPT) 13, Alkaline Phosphatase 24, Total Protein 6.2, Albumin 3.5 Imaging: Reviewed Imaging Report Discussion & Recommendations Discharge Planning: <30 minutes discharge planning Discharge Home Medications: Active Scripts Active HYDROcodone/APAP 10/325 TABLET (Acetaminophen/Hydrocodone Bitart) 1 Ea Tab 1 Ea PO Q4H PRN 7 Days Lisinopril 5 Mg Tablet 5 Mg PO DAILY 30 Days Metoprolol Succinate 25 Mg Tab.er.24h 25 Mg PO DAILY 30 Days Lipitor (Atorvastatin Calcium) 40 Mg Tablet 40 Mg PO HS 30 Days Clindamycin HCl 150 Mg Capsule 300 Mg PO Q6HR 10 Days Reported Gabapentin 800 Mg Tablet 1,600 Mg PO HS TAKES 2 (800MG) TABS Tylenol (Acetaminophen) 325 Mg Tablet 650 Mg PO Q6H PRN TAKES 2 (325MG) TABLETS Pantoprazole Sodium 20 Mg Tablet.dr 20 Mg PO DAILY Promethazine Tablet (Promethazine HCl) 25 Mg Tablet 25 Mg PO Q12H PRN Ropinirole HCl 6 Mg Tab.er.24h 6 Mg PO HS Gabapentin 800 Mg Tablet 800 Mg PO BID Condition at discharge Stable and improved Instructions to patient/family Please see electronic discharge instructions given to patient. Clinical Quality Measures DVT/VTE Risk/Contraindication: Risk Factor Score Per Nursin RFS Level Per Nursing on Admit: 4+=Very High Copy Copies To 1: [facility]/[employer] Problem Qualifiers (1) COPD (chronic obstructive pulmonary disease): Qualified Codes: J44.9 - Chronic obstructive pulmonary disease, unspecified CECILIA VALLEJO MD Jul 19, 2020 11:03
[2020-07-19 13:21] VITALS: BP 184/67
== END 2020-07-19 13:21 | disposition home or self-care (01) | DRG 872 ==
LOC: EDUNIT# 11:20 → ER 11:21 → 4TH 15:10
PROVIDERS: ADMIT Internal Medicine; ATTEND Family Medicine
DX: A41.9 Sepsis, unspecified organism (principal); L03.115 Cellulitis of right lower limb; N39.0 Urinary tract infection, site not specified; I10 Essential (primary) hypertension; I25.10 Atherosclerotic heart disease of native coronary artery without angina pectoris; Z20.828 Contact with and (suspected) exposure to other viral communicable diseases; J44.9 Chronic obstructive pulmonary disease, unspecified; B95.2 Enterococcus as the cause of diseases classified elsewhere; I73.9 Peripheral vascular disease, unspecified; Z95.1 Presence of aortocoronary bypass graft; F17.210 Nicotine dependence, cigarettes, uncomplicated
CPT/HCPCS: 36415; 71045; 80048; 80053; 80202; 81000; 83605; 84145; 84484; 85007; 85025; 85027; 85379; 85610; 85730; 86141; 87040; 87077; 87088; 87186; 87635; 87804; 90686; 93005; 94640; 94760

== ENCOUNTER → 2020-10-14 | Outpatient (CLI) | payer MEDICAID ==
[~2020-10-14] MED LIST changes: +ACHYD1T PO; +ATOR40TA PO; +CLIN150C18 PO; -FOLI0.8T PO; +FOLI0.8T4 PO; -LISI-556 PO; +LISI-729 PO; +METH-731 PO; -METH500T7 PO; -OXYC-471 PO; +OXYC1TAB11 PO; -POLY17PO31 PO; +POLY17PO54 PO; +SERT-413 PO; -SERT50TA9 PO
--- NOTE | 2020-10-14 11:46 | Diagnostic Imaging Report ---
PROCEDURE: CT abdomen and pelvis without contrast. TECHNIQUE: Multiple contiguous axial images were obtained through the abdomen and pelvis without the use of intravenous contrast. Auto Exposure Controls were utilized during the CT exam to meet ALARA standards for radiation dose reduction. INDICATION: Left lower quadrant abdominal pain. There is some calcified pleural plaque over the right hemidiaphragm. Liver appears normal. Gallbladder is present and appears normal. Common duct and portal vein do not appear dilated. Pancreas appears normal. The spleen is not enlarged. Adrenals appear normal. There is calcific atherosclerosis of the aorta. There is focal infrarenal ectasia of the aorta that measures up to 2.5 x 2.6 mm. There is a small umbilical hernia containing fat. Small bowel is not dilated. There is a large amount of stool in the colon. The appendix is normal. There is diverticulosis of the colon. Uterus is surgically absent. Urinary bladder appears normal. There is no intraperitoneal free air or free fluid. IMPRESSION: Umbilical hernia. Colonic diverticulosis without evidence of diverticulitis. Dictated by: Dictated on workstation # [id number]
== END ==
LOC: RAD 10:15
PROVIDERS: ATTEND Nurse Practitioner Family
DX: K42.9 Umbilical hernia without obstruction or gangrene (principal); K57.30 Diverticulosis of large intestine without perforation or abscess without bleeding
CPT/HCPCS: 74176

== ENCOUNTER 2020-12-15 04:10 | Inpatient (IN) | payer MEDICAID ==
[~2020-12-15] VITALS: Ht 157 cm; Wt 58.6 kg
[2020-12-15] MEDS ORDERED: methylPREDNISolone 125 MG (Solu-MEDROL) VIAL IM ONE (04:45)
--- NOTE | 2020-12-15 04:46 | ED Respiratory ---
General Chief Complaint: Respiratory Problems Stated Complaint: SOB Source: patient, EMS Exam Limitations: no limitations History of Present Illness Date Seen by Provider: December 15, 2020 Time Seen by Provider: 04:30 Initial Comments Patient is a 60-year-old lady who presents to the emergency department by ambulance tonpancho with a chief complaint of shortness of breath. Patient was found at home with oxygen saturations in the 80s. She had a DuoNeb treatment and was placed on oxygen and was satting in the low 90s on arrival. Patient states that she has had increasing shortness of breath and cough over the last several weeks worsening particularly over the last 24 hours. Patient describes her sputum as "cottage cheese". She denies fevers or chills. No chest pain. No nausea, vomiting or diarrhea. No urinary complaints. Patient does continue to smoke. She is not on home oxygen. By the time she arrives with me she is feeling a little bit better. She is still a little tachypneic and not moving a lot of air but oxygen saturations on oxygen 1 to 2 L are in the low 90s. When removing the patient off of oxygen she desats down to 88. All other review of systems reviewed and negative except as stated above. Timing/Duration: this morning Prior Episodes/Possible Cause: frequent episodes Modifying Factors: Improves With Albuterol Inhaler Associated Symptoms: cough, shortness of breath Allergies and Home Medications Allergies Coded Allergies: No Known Drug Allergies (Unverified , 08/23/18) Home Medications Acetaminophen 325 Mg Tablet, 650 MG PO Q6H PRN for PAIN-MILD (1-4), (Reported) TAKES 2 (325MG) TABLETS Atorvastatin Calcium 40 Mg Tablet, 40 MG PO HS Prescribed by: CECILIA VALLEJO on 07/19/20 104 Clindamycin HCl 150 Mg Capsule, 300 MG PO Q6HR Prescribed by: CECILIA VALLEJO on 07/19/20 104 Gabapentin 800 Mg Tablet, 800 MG PO BID, (Reported) Gabapentin 800 Mg Tablet, 1,600 MG PO HS, (Reported) TAKES 2 (800MG) TABS Hydrocodone Bit/Acetaminophen 1 Ea Tab, 1 EA PO Q4H PRN for PAIN-MODERATE (5-7) Prescribed by: CECILIA VALLEJO on 07/19/20 104 Lisinopril 5 Mg Tablet, 5 MG PO DAILY Prescribed by: CECILIA VALLEJO on 07/19/20 1047 Metoprolol Succinate 25 Mg Tab.er.24h, 25 MG PO DAILY Prescribed by: CECILIA VALLEJO on 07/19/20 1047 Pantoprazole Sodium 20 Mg Tablet.dr, 20 MG PO DAILY, (Reported) Promethazine HCl 25 Mg Tablet, 25 MG PO Q12H PRN for NAUSEA/VOMITING-1ST LINE, (Reported) Ropinirole HCl 6 Mg Tab.er.24h, 6 MG PO HS, (Reported) Patient Home Medication List Home Medication List Reviewed: Yes Review of Systems Review of Systems Constitutional: see HPI EENTM: no symptoms reported Respiratory: cough, phlegm, short of breath Cardiovascular: no symptoms reported Gastrointestinal: no symptoms reported Genitourinary: no symptoms reported : No Musculoskeletal: no symptoms reported Skin: no symptoms reported All Other Systems Reviewed Negative Unless Noted: Yes Past Djxaroy-Yuvrwm-Wgmbzh Hx Patient Social History Type Used: Cigarettes 2nd Hand Smoke Exposure: Yes Recent Hopitalizations: Yes (07/03 pneumonia) Immunizations Up To Date Tetanus Booster (TDap): Unknown PED Vaccines UTD: Yes Date of Pneumonia Vaccine: Jul 17, 2017 Date of Influenza Vaccine: Aug 03, 2018 Seasonal Allergies Seasonal Allergies: No Past Medical History Surgeries: Yes (CARPAL TUNNEL, OPEN HEART-4 VESSEL CABG 07/30/18) Abdominal, Cardiac, CABG, Hysterectomy, Oophorectomy, Open Heart Surgery, Orthopedic, Vascular Surgery Respiratory: Yes Asthma, Pneumonia, COPD Currently Using CPAP: No Currently Using BIPAP: No Cardiac: Yes (PR 07/2018 WITH 4 VESSEL CABG 07/30/18) Coronary Artery Disease, Heart Attack, High Cholesterol, Hypertension Neurological: No Female 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 Disorders: 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 [employer]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 Genitourinary: No Gastrointestinal: No Musculoskeletal: Yes (PSORIATIC ARTHRITIS) Degenerate Disk Disease, Arthritis, Chronic Back Pain Endocrine: No HEENT: Yes (EDENTULOUS, R mastoid bone removed) Cancer: No Psychosocial: No Anxiety, Depression Integumentary: Yes (POST OP WOUND INFECTION TO LEGS POST CABG) Psoriasis Blood Disorders: Yes (POST OP ANEMIA 07/2018--4 UNITS OF BLOOD POST OP) Adverse Reaction/Blood Tranf: No Family Medical History Diabetes, Hypertension Physical Exam Vital Signs - First Documented 12/15/20 12/15/20 04:10 04:38 Temp 36.2 Pulse 96 Resp 22 B/P (MAP) 137/71 (93) Pulse Ox 89 O2 Delivery Room Air Capillary Refill : Height: 5'1.00" Weight: 114lbs. 6.0oz. 51.269373wh; 23.62 BMI Method:Stated General Appearance: no apparent distress, other (Appears ill) Eyes: Bilateral Eye Normal Inspection, Bilateral Eye PERRL, Bilateral Eye EOMI HEENT: PERRL/EOMI Neck: full range of motion Respiratory: no accessory muscle use, wheezing, other (Patient is overall moving poor air. She has squeaky expiratory wheezes in the left upper lobe. Diminished breath sounds throughout the rest of her lung toney) Cardiovascular: regular rate, rhythm, no edema Gastrointestinal: non tender, soft Extremities: normal inspection Neurologic/Psychiatric: alert, normal mood/affect, oriented x 3 Skin: normal color, warm/dry Procedures/Interventions Date of ETT Placement: Oct 17, 2018 Time of ETT Placement: 1441 Progress/Results/Core Measures Suspected Sepsis SIRS Temperature: Pulse: Respiratory Rate: Laboratory Tests 12/15/20 04:24: White Blood Count 14.6H Blood Pressure / Mean: Laboratory Tests 12/15/20 04:24: Creatinine 0.77, Platelet Count 390 Results/Orders Lab Results Laboratory Tests Test 12/15/20 04:24 Range/Units White Blood Count 14.6 H 4.3-11.0 10^3/uL Red Blood Count 4.65 3.80-5.11 10^6/uL Hemoglobin 14.0 11.5-16.0 g/dL Hematocrit 42 35-52 % Mean Corpuscular Volume 90 80-99 fL Mean Corpuscular Hemoglobin 30 25-34 pg Mean Corpuscular Hemoglobin Concent 34 32-36 g/dL Red Cell Distribution Width 13.0 10.0-14.5 % Platelet Count 390 130-400 10^3/uL Mean Platelet Volume 9.6 9.0-12.2 fL Immature Granulocyte % (Auto) 0 % Neutrophils (%) (Auto) 72 42-75 % Lymphocytes (%) (Auto) 19 12-44 % Monocytes (%) (Auto) 6 0-12 % Eosinophils (%) (Auto) 1 0-10 % Basophils (%) (Auto) 1 0-10 % Neutrophils # (Auto) 10.5 H 1.8-7.8 10^3/uL Lymphocytes # (Auto) 2.8 1.0-4.0 10^3/uL Monocytes # (Auto) 0.9 0.0-1.0 10^3/uL Eosinophils # (Auto) 0.2 0.0-0.3 10^3/uL Basophils # (Auto) 0.1 0.0-0.1 10^3/uL Immature Granulocyte # (Auto) 0.1 0.0-0.1 10^3/uL Neutrophils % (Manual) 78 % Lymphocytes % (Manual) 17 % Monocytes % (Manual) 4 % Eosinophils % (Manual) 1 % Blood Morphology Comment NORMAL Sodium Level 136 135-145 MMOL/L Potassium Level 3.9 3.6-5.0 MMOL/L Chloride Level 98 98-107 MMOL/L Carbon Dioxide Level 26 21-32 MMOL/L Anion Gap 12 5-14 MMOL/L Blood Urea Nitrogen 10 7-18 MG/DL Creatinine 0.77 0.60-1.30 MG/DL Estimat Glomerular Filtration Rate > 60 BUN/Creatinine Ratio 13 Glucose Level 146 H 70-105 MG/DL Calcium Level 9.0 8.5-10.1 MG/DL My Orders Orders - MICAH KIRBY MD O2 (12/15/20 04:38) Cbc With Automated Diff (12/15/20 04:45) Basic Metabolic Panel (12/15/20 04:45) Chest 1 View, Ap/Pa Only (12/15/20 04:45) Manual Differential (12/15/20 04:24) Methylprednisolone Sod Succ (Solu-Medrol (12/15/20 05:30) Arterial Blood Gas (12/15/20 05:56) Blood Culture (12/15/20 05:57) Ceftriaxone For Iv Use (Rocephin For I (12/15/20 06:00) Azithromycin Injection (Zithromax Inject (12/15/20 06:00) Blood Culture (12/15/20 06:02) Cefepime Injection (Maxipime Injection) (12/15/20 06:30) Vancomycin Injection (Vancomycin Injecti (12/15/20 06:30) [facility]sa Screen Physician Request (12/15/20 06:31) [facility] Nursing Screening/Treatme .admit (12/15/20 06:31) Medications Given in ED Current Medications Medications Dose Ordered Sig/Lance Route Start Time Stop Time Status Last Admin Dose Admin Methylprednisolone Sodium Succinate 125 mg ONCE ONCE IVP 12/15/20 05:30 12/15/20 05:31 DC 12/15/20 05:20 125 MG Vital Signs/I&O 12/15/20 12/15/20 04:10 04:38 Temp 36.2 Pulse 96 Resp 22 B/P (MAP) 137/71 (93) Pulse Ox 89 O2 Delivery Room Air Room Air Capillary Refill : Progress Note : Time: 05:55 Progress Note 60-year-old female seen and examined by me with a chief complaint of respiratory distress. Evaluation today includes physical exam, CBC BMP chest x-ray. Patient is noted to have a patchy infiltrate in the right lower lobe. She has a mild leukocytosis of 14,000. She continues to desat when off oxygen down into the upper 80s. She will require admission for respiratory support and IV antibiotics. Patient appears fatigued and falls asleep quite quickly. ABG is pending at the time of this dictation. Diagnostic Imaging Diagonstic Imaging: Xray Plain Films/CT/US/NM/MRI: chest Comments Patchy infiltrate in the right lower lobe Departure Communication (Admissions) Time/Spoke to Admitting Phy: 06:[address] Radford recommends cefepime and Vanco at this time. Would like an MRSA swab as well. Impression Primary Impression: COPD exacerbation Additional Impression: Pneumonia Qualified Codes: J18.9 - Pneumonia, unspecified organism Disposition: ADMITTED INPATIENT Condition: Stable Admissions Decision to Admit Reason: Admit from ER (General) Decision to Admit/Date: December 15, 2020 Time/Decision to Admit Time: 06:20 Departure-Patient Inst. Referrals: [facility] (PCP) Primary Care Physician LAUREN BAIRD (Family) Primary Care Physician MICAH KIRBY MD December 15, 2020 04:46
[2020-12-15 04:51] LABS: BASOPHILS # (AUTO) 0.1 10^3/uL (0.0-0.1); BASOPHILS % (AUTO) 1 % (0-10); EOSINOPHILS # (AUTO) 0.2 10^3/uL (0.0-0.3); EOSINOPHILS % (AUTO) 1 % (0-10); HEMATOCRIT 42 % (35-52); LYMPHOCYTES # (AUTO) 2.8 10^3/uL (1.0-4.0); LYMPHOCYTES % (AUTO) 19 % (12-44); MEAN CORPUSCULAR HEMOGLOBIN 30 pg (25-34); MEAN CORPUSCULAR HGB CONC 34 g/dL (32-36); MEAN CORPUSCULAR VOLUME 90 fL (80-99); MEAN PLATELET VOLUME 9.6 fL (9.0-12.2); MONOCYTES # (AUTO) 0.9 10^3/uL (0.0-1.0); MONOCYTES % (AUTO) 6 % (0-12); NEUTROPHILS # (AUTO) 10.5 10^3/uL (1.8-7.8); NEUTROPHILS % (AUTO) 72 % (42-75); PLATELET COUNT 390 10^3/uL (130-400); WHITE BLOOD COUNT 14.6 10^3/uL (4.3-11.0)
[2020-12-15 04:53] LABS: CHLORIDE 98 MMOL/L (98-107); POTASSIUM 3.9 MMOL/L (3.6-5.0); SODIUM 136 MMOL/L (135-145)
[2020-12-15 04:55] LABS: GLUCOSE 146 MG/DL (70-105)
[2020-12-15 04:56] LABS: CARBON DIOXIDE 26 MMOL/L (21-32)
[2020-12-15 04:58] LABS: CREATININE SERUM 0.77 MG/DL (0.60-1.30); GFR ESTIMATED > 60
[2020-12-15 04:59] LABS: BUN/CREATININE RATIO 13
[2020-12-15 05:09] LABS: EOSINOPHILS % (MANUAL) 1 %; LYMPHOCYTES % (MANUAL) 17 %; MONOCYTES % (MANUAL) 4 %; NEUTROPHILS % (MANUAL) 78 %; RBC MORPH NORMAL
[2020-12-15] MEDS ORDERED: methylPREDNISolone 125 MG (Solu-MEDROL) VIAL IVP ONE (05:30)
--- NOTE | 2020-12-15 05:49 | Diagnostic Imaging Report ---
CHEST 1 VIEW, AP/PA ONLY Indication: Shortness of breath. Comparison: 07/15/2020 Findings: Increasing right basilar subpleural heterogeneous opacities. No pleural effusion or pneumothorax. Stable cardiomegaly status post CABG. Sternotomy wires are in stable position. Impression: 1. Increasing right basilar subpleural opacities could be due to atelectasis, infection or aspiration. Dictated by: Dictated on workstation # [id number]
[2020-12-15] MEDS ORDERED: cefTRIAXone FOR IV USE 1,000 MG in WATER (STERILE) FOR INJECTION 10 ML IV ONE (06:00)
[2020-12-15] MEDS ORDERED: AZITHROMYCIN INJECTION 500 MG in NS (IVPB) 250 ML IV ONE (06:00)
[2020-12-15] MEDS ORDERED: CEFEPIME INJECTION 1,000 MG in WATER (STERILE) FOR INJECTION 10 ML IV ONE (06:30)
[2020-12-15] MEDS ORDERED: VANCOMYCIN INJECTION 1,000 MG in NS (IVPB) 250 ML IV ONE (06:30)
[2020-12-15] MEDS ORDERED: CEFEPIME INJECTION 2,000 MG in WATER (STERILE) FOR INJECTION 20 ML IV ONE (06:45)
[2020-12-15 07:12] LABS: ABG BASE EXCESS 4.3 MMOL/L (-2.5-2.5); ABG OXYGEN SATURATION 87 % (94-100); ABG PCO2 51 MMHG (35-45); ABG PH 7.38 (7.37-7.43); ABG PO2 52 MMHG (79-93); ABG TCO2 30.8 MMOL/L (21.0-31.0)
[2020-12-15 07:15] LABS: ALLENS TEST YES-POS; INSPIRED O2 2; PATIENT TEMP 36.6; VENTILATOR NO
--- NOTE | 2020-12-15 08:38 | History & Physical-Hospitalist ---
History of Present Illness HPI/Chief Complaint CC: Dyspnea HPI: This is a 60yoWF known to me from multiple hospital stays for COPD exacerbation and heart failure who presents to the ER with SOB and right lower lobe pneumonia. Pt was placed on Cefepime and Vancomycin after gatica cultured. Pt it currently on BiPAP. ABG sowed PAO2 of 52 and will need close monitoring f or any clinical status decline. Pt is tired. She reports that she has been getting more and more ill the last two weeks. Patient continues to smoke so nicotine patch ordered Source: patient, RN/MD, old records Exam Limitations: clinical condition Date Seen 12/15/20 Time Seen by a Provider: 09:00 Attending Physician Britni Radford DO [facility] Referring Physician Date of Admission December 15, 2020 at 06:25 Home Medications & Allergies Home Medications Reviewed patient Home Medication Reconciliation performed by pharmacy medication reconciliations event technician and/or nursing. Patients Allergies have been reviewed. Allergies Allergies Coded Allergies No Known Drug Allergies (Unverified08/23/18) Patient Social History Marrital Status: Employed/Student: unemployed Tobacco Use?: Yes Smoking Status: Current Everyday Smoker Use of E-Cig and/or Vaping dev: No Alcohol Use?: No Immunizations Up To Date Tetanus Booster (TDap): Unknown Date of Pneumonia Vaccine: Jul 17, 2017 Current Status Primary Language: Upper Sorbian Past Medical History PMHx: Coronary artery disease, s/p CABG 07/2018 Anxiety Chronic pain HTN PNA COPD RLS PSurgHx: CABG Family Medical History Family Hx: [place] Review of Systems Constitutional: see HPI Respiratory: dyspnea on exertion, short of breath Physical Exam Physical Exam Vital Signs Vital Signs - First Documented 12/15/20 12/15/20 12/15/20 12/15/20 04:10 04:38 07:54 08:51 Temp 36.2 Pulse 96 Resp 22 B/P (MAP) 137/71 (93) Pulse Ox 89 O2 Delivery Room Air O2 Flow Rate 2.00 FiO2 2 Capillary Refill : Less Than 3 Seconds Height, Weight, BMI Height: 5'1.00" Weight: 114lbs. 6.0oz. 51.025105zq; 23.00 BMI Method:Stated General Appearance: No Apparent Distress, Chronically ill Eyes: Right Eye Normal Inspection, Right Eye PERRL HEENT: PERRL/EOMI, Normal ENT Inspection, Pharynx Normal, Moist Mucous Membranes Neck: Full Range of Motion, Normal Inspection, Non Tender Respiratory: Chest Non Tender, Lungs Clear, No Accessory Muscle Use, No Respiratory Distress, Decreased Breath Sounds Cardiovascular: Regular Rate, Rhythm, No Edema, No Gallop, No JVD, No Murmur, Normal Peripheral Pulses Gastrointestinal: Normal Bowel Sounds, No Organomegaly, No Pulsatile Mass, Non Tender, Soft Back: Normal Inspection, No CVA Tenderness, No Vertebral Tenderness Extremity: Normal Capillary Refill, Normal Inspection, Normal Range of Motion, Non Tender, No Calf Tenderness, No Pedal Edema Neurologic/Psychiatric: Alert, Oriented x3, No Motor/Sensory Deficits, Normal Mood/Affect Skin: Normal Color, Warm/Dry Lymphatic: No Adenopathy Results Results/Procedures Labs Laboratory Tests 12/15/20 04:24 Patient resulted labs reviewed. Assessment/Plan Admission Diagnosis Assessment: Acute on chronic respiratory failure RLL PNA HAP risk COPD Current smoker CAD prev CABG HTN Chronic pain RLS Plan: biPAP O2 Home meds IV abx Admission Status: Inpatient Order (span 2 midnights) Reason for Inpatient Admission: resp failure Diagnosis/Problems Diagnosis/Problems (1) Pneumonia Status: Acute Qualifiers: Pneumonia type: due to unspecified organism Laterality: right Lung location: lower lobe of lung Qualified Codes: J18.9 - Pneumonia, unspecified organism (2) Hx of CABG Status: Chronic (3) COPD (chronic obstructive pulmonary disease) Status: Chronic (4) Coronary artery disease Status: Chronic (5) COPD exacerbation Status: Acute BRITNI RADFORD DO December 15, 2020 08:38
[2020-12-15 08:51] VITALS: BP 136/68
[2020-12-15 09:00] VITALS: BP 187/83
[2020-12-15] MEDS ORDERED: RT-ALBUTEROL/IPRATROPIUM 3 ML (DUONEB) VIAL INH PRN (09:00)
[2020-12-15] MEDS: RT-ALBUTEROL/IPRATROPIUM 3 ML (DUONEB) VIAL INH SCH ×4 (09:36→20:52)
[2020-12-15] MEDS ORDERED: OMEP20CA18 PO (11:23)
[2020-12-15] MEDS ORDERED: GABA800T10 PO (11:30)
[2020-12-15] MEDS: CEFEPIME 1,000 MG/SWFI 10 ML IV PUSH IV SCH ×4 (11:59→18:09)
[2020-12-15 12:00] VITALS: BP 165/80
[2020-12-15] MEDS: ACETAMINOPHEN 500 MG TAB (TYLENOL) PO PRN (12:31)
[2020-12-15 16:29] VITALS: BP 130/76
[2020-12-15] MEDS: VANCOMYCIN 750 MG/NS 250 ML IVPB IV SCH ×2 (18:09)
[2020-12-15 19:37] VITALS: BP 101/53
[2020-12-15] MEDS: NICOTINE 14 MG (NICODERM) PATCH TD SCH (20:36)
[2020-12-15] MEDS ORDERED: CALCIUM CARBONATE 500 MG (TUMS) TAB.CHEW PO PRN (21:00)
[2020-12-15] MEDS ORDERED: MELATONIN 3 MG TABLET PO PRN (21:00)
[2020-12-15] MEDS ORDERED: PROMETHAZINE 25 MG (PHENERGAN) TAB PO PRN (21:00)
[2020-12-15] MEDS ORDERED: ONDANSETRON 4 MG/2 ML (SDV) Z0FRAN IVP PRN (21:00)
[2020-12-15] MEDS ORDERED: ALPRAZolam 0.25 MG (XANAX) TAB PO PRN (21:00)
[2020-12-15] MEDS ORDERED: LOPERAMIDE 2 MG (IMODIUM) TABLET PO PRN (21:00)
[2020-12-15] MEDS ORDERED: DOCUSATE SODIUM 100 MG (COLACE) CAP PO PRN (21:00)
[2020-12-15] MEDS ORDERED: diphenhydrAMINE 25 MG TAB (BENADRYL) PO PRN (21:00)
[2020-12-15] MEDS: SENNA W/DOCUSATE (SENOKOT S) TABLET PO SCH (21:58)
[2020-12-15] MEDS ORDERED: GABAPENTIN 400 MG (NEURONTIN) CAP PO SCH (22:00)
[2020-12-15] MEDS: ENOXAPARIN 40 MG/0.4 ML (LOVENOX) SYR SC SCH (22:01)
[2020-12-15] MEDS: GABAPENTIN 400 MG (NEURONTIN) CAP PO SCH (22:02)
[2020-12-15] MEDS: rOPINIRole 1 MG (REQUIP) TABLET PO SCH (22:02)
[2020-12-16] VITALS (7 sets, daily range): BP systolic 102–139; BP diastolic 53–78
[2020-12-16] MEDS: CEFEPIME 1,000 MG/SWFI 10 ML IV PUSH IV SCH ×8 (00:44→18:12)
[2020-12-16] MEDS: RT-ALBUTEROL/IPRATROPIUM 3 ML (DUONEB) VIAL INH SCH ×6 (02:24→21:05)
--- NOTE | 2020-12-16 06:03 | Progress Note - Hospitalist ---
Subjective HPI/CC On Admission Date Seen by Provider: December 16, 2020 Time Seen by Provider: 09:00 CC: Dyspnea HPI: This is a 60yoWF known to me from multiple hospital stays for COPD exacerbation and heart failure who presents to the ER with SOB and right lower lobe pneumonia. Pt was placed on Cefepime and Vancomycin after gatica cultured. Pt it currently on BiPAP. ABG sowed PAO2 of 52 and will need close monitoring for any clinical status decline. Pt is tired. She reports that she has been getting more and more ill the last two weeks. Patient continues to smoke so nicotine patch ordered Subjective/Events-last exam Pt doing a lot better Updated her on the right lower lobe pneumonia Lungs are coarse but improved ABG is 7. Used BiPAP lastnight Discouraged but she is okay with going home tomorrow We talked about smoking cessation Review of Systems General: Fatigue Pulmonary: Dyspnea, Cough Objective Exam Vital Signs Vital Signs Date Time Temp Pulse Resp B/P (MAP) Pulse Ox O2 Delivery O2 Flow Rate FiO2 12/16/20 19:38 36.7 101 18 102/53 (69) 94 Nasal Cannula 4.00 12/15/20 08:51 2 Capillary Refill : Less Than 3 Seconds General Appearance: No Apparent Distress, WD/WN, Chronically ill Respiratory: No Accessory Muscle Use, No Respiratory Distress, Crackles, Decreased Breath Sounds Cardiovascular: Regular Rate, Rhythm Neurologic/Psychiatric: Alert, Oriented x3, Depressed Affect Results/Procedures Lab Laboratory Tests 12/16/20 05:59 Patient resulted labs reviewed. Assessment/Plan Assessment and Plan Assess & Plan/Chief Complaint Assessment: Acute on chronic respiratory failure RLL PNA HAP risk COPD Current smoker CAD prev CABG HTN Chronic pain RLS Plan: biPAP O2 Home meds IV abx 12/16/20: IV abx BiPAP O2 PT OT tomorrow DC tomorrow? Diagnosis/Problems Diagnosis/Problems (1) Pneumonia Status: Acute Qualifiers: Pneumonia type: due to unspecified organism Laterality: right Lung location: lower lobe of lung Qualified Codes: J18.9 - Pneumonia, unspecified organism (2) Hx of CABG Status: Chronic (3) COPD (chronic obstructive pulmonary disease) Status: Chronic (4) Coronary artery disease Status: Chronic (5) COPD exacerbation Status: Acute SARABJIT EATON DO December 16, 2020 06:03
[2020-12-16 06:09] LABS: BASOPHILS # (AUTO) 0.1 10^3/uL (0.0-0.1); BASOPHILS % (AUTO) 1 % (0-10); EOSINOPHILS # (AUTO) 0.1 10^3/uL (0.0-0.3); EOSINOPHILS % (AUTO) 1 % (0-10); HEMATOCRIT 39 % (35-52); HEMOGLOBIN 12.3 g/dL (11.5-16.0); LYMPHOCYTES # (AUTO) 2.1 10^3/uL (1.0-4.0); LYMPHOCYTES % (AUTO) 16 % (12-44); MEAN CORPUSCULAR HEMOGLOBIN 29 pg (25-34); MEAN CORPUSCULAR HGB CONC 32 g/dL (32-36); MEAN CORPUSCULAR VOLUME 92 fL (80-99); MEAN PLATELET VOLUME 9.5 fL (9.0-12.2); MONOCYTES % (AUTO) 8 % (0-12); NEUTROPHILS # (AUTO) 10.2 10^3/uL (1.8-7.8); NEUTROPHILS % (AUTO) 75 % (42-75); PLATELET COUNT 338 10^3/uL (130-400); WHITE BLOOD COUNT 13.5 10^3/uL (4.3-11.0)
[2020-12-16] MEDS: VANCOMYCIN 750 MG/NS 250 ML IVPB IV SCH ×4 (06:19→20:09)
[2020-12-16] MEDS: PANTOPRAZOLE 20 MG TABLET (PROTONIX) PO SCH (06:20)
[2020-12-16 06:25] LABS: ALBUMIN 3.4 GM/DL (3.2-4.5); CHLORIDE 100 MMOL/L (98-107); POTASSIUM 3.8 MMOL/L (3.6-5.0); SODIUM 138 MMOL/L (135-145)
[2020-12-16 06:26] LABS: CALCIUM 8.9 MG/DL (8.5-10.1)
[2020-12-16 06:27] LABS: GLUCOSE 115 MG/DL (70-105); TOTAL PROTEIN 6.2 GM/DL (6.4-8.2)
[2020-12-16 06:28] LABS: CARBON DIOXIDE 29 MMOL/L (21-32)
[2020-12-16 06:29] LABS: BILIRUBIN,TOTAL 0.3 MG/DL (0.1-1.0)
[2020-12-16 06:31] LABS: ALKALINE PHOSPHATASE 24 U/L (40-136); CREATININE SERUM 0.63 MG/DL (0.60-1.30); GFR ESTIMATED > 60
[2020-12-16 06:32] LABS: BUN/CREATININE RATIO 16
[2020-12-16 06:34] LABS: ALANINE AMINOTRANSFERASE 11 U/L (0-55)
[2020-12-16 07:05] LABS: ABG BASE EXCESS 3.3 MMOL/L (-2.5-2.5); ABG OXYGEN SATURATION 90 % (94-100); ABG PCO2 59 MMHG (35-45); ABG PO2 66 MMHG (79-93)
[2020-12-16 07:10] LABS: ABG PH 7.31 (7.37-7.43); ALLENS TEST POSITIVE; INSPIRED O2 4 L; PATIENT TEMP 36.3; VENTILATOR NO
[2020-12-16] MEDS: SENNA W/DOCUSATE (SENOKOT S) TABLET PO SCH ×2 (08:09→20:10)
[2020-12-16] MEDS: NICOTINE PATCH REMOVAL TP SCH (08:09)
[2020-12-16] MEDS: NICOTINE 14 MG (NICODERM) PATCH TD SCH (08:09)
[2020-12-16] MEDS: GABAPENTIN 400 MG (NEURONTIN) CAP PO SCH ×3 (08:09→20:10)
[2020-12-16] MEDS: methylPREDNISolone 40 MG/ML (Solu-MEDROL) VIAL IV SCH ×2 (08:09→20:09)
--- NOTE | 2020-12-16 08:11 | Diagnostic Imaging Report ---
INDICATION: Pneumonia, follow-up. TECHNIQUE: Single view chest 7:31 AM. CORRELATION STUDY: 12/15/2020 FINDINGS: Poststernotomy changes. Heart size enlarged. Vasculature appears slightly more prominent from prior. There is also fullness and increased density at the right hilum. Additionally, question increased density in the right infrahilar region. Lung toney are hyperinflated with prominent interstitial markings. IMPRESSION: 1. Cardiac enlargement with vasculature appearing slightly more prominent along with interstitial markings may be a component of edema. 2. Abnormal fullness right hilum as well as increasing density right infrahilar region. May be a component of underlying infiltrate versus edema. Mass, however does not completely excluded at this time and short-term follow-up imaging is recommended for reassessment. Dictated by: Dictated on workstation # [id number]
[2020-12-16] MEDS: ACETAMINOPHEN 500 MG TAB (TYLENOL) PO PRN (08:14)
[2020-12-16] MEDS ORDERED: NICOTINE 14 MG (NICODERM) PATCH TD SCH (09:00)
[2020-12-16] MEDS: HYDROcodone/APAP 5 MG/325 MG (LORTAB) TAB PO PRN ×2 (12:42→18:12)
[2020-12-16] MEDS ORDERED: TROUGH ORDER-PHARMACY XX ONE (18:00)
[2020-12-16] MEDS: ENOXAPARIN 40 MG/0.4 ML (LOVENOX) SYR SC SCH (20:09)
[2020-12-16] MEDS: rOPINIRole 1 MG (REQUIP) TABLET PO SCH (20:13)
[2020-12-17] MEDS: CEFEPIME 1,000 MG/SWFI 10 ML IV PUSH IV SCH ×6 (00:12→12:29)
[2020-12-17] MEDS: HYDROcodone/APAP 5 MG/325 MG (LORTAB) TAB PO PRN ×3 (00:13→08:53)
[2020-12-17 04:00] VITALS: BP 121/66
[2020-12-17] MEDS: PANTOPRAZOLE 20 MG TABLET (PROTONIX) PO SCH (05:58)
[2020-12-17] MEDS: VANCOMYCIN 750 MG/NS 250 ML IVPB IV SCH ×2 (05:58)
[2020-12-17 06:05] LABS: BASOPHILS % (AUTO) 0 % (0-10); EOSINOPHILS % (AUTO) 0 % (0-10); HEMATOCRIT 39 % (35-52); HEMOGLOBIN 12.7 g/dL (11.5-16.0); LYMPHOCYTES # (AUTO) 0.8 10^3/uL (1.0-4.0); LYMPHOCYTES % (AUTO) 6 % (12-44); MEAN CORPUSCULAR HEMOGLOBIN 30 pg (25-34); MEAN CORPUSCULAR HGB CONC 32 g/dL (32-36); MEAN CORPUSCULAR VOLUME 93 fL (80-99); MEAN PLATELET VOLUME 9.5 fL (9.0-12.2); MONOCYTES # (AUTO) 0.4 10^3/uL (0.0-1.0); MONOCYTES % (AUTO) 3 % (0-12); NEUTROPHILS % (AUTO) 91 % (42-75); PLATELET COUNT 351 10^3/uL (130-400); WHITE BLOOD COUNT 13.3 10^3/uL (4.3-11.0)
[2020-12-17 06:12] LABS: ALBUMIN 3.5 GM/DL (3.2-4.5); CHLORIDE 99 MMOL/L (98-107); POTASSIUM 4.4 MMOL/L (3.6-5.0); SODIUM 135 MMOL/L (135-145)
[2020-12-17 06:14] LABS: CALCIUM 9.1 MG/DL (8.5-10.1)
[2020-12-17 06:15] LABS: GLUCOSE 153 MG/DL (70-105); TOTAL PROTEIN 6.4 GM/DL (6.4-8.2)
[2020-12-17 06:16] LABS: CARBON DIOXIDE 28 MMOL/L (21-32)
[2020-12-17 06:17] LABS: BILIRUBIN,TOTAL 0.2 MG/DL (0.1-1.0)
[2020-12-17 06:18] LABS: ALKALINE PHOSPHATASE 23 U/L (40-136); CREATININE SERUM 0.66 MG/DL (0.60-1.30)
[2020-12-17 06:19] LABS: GFR ESTIMATED > 60
[2020-12-17 06:20] LABS: BUN/CREATININE RATIO 15
[2020-12-17 06:21] LABS: ALANINE AMINOTRANSFERASE 11 U/L (0-55)
[2020-12-17 07:25] VITALS: BP 140/64
[2020-12-17] MEDS: SENNA W/DOCUSATE (SENOKOT S) TABLET PO SCH (08:52)
[2020-12-17] MEDS: GABAPENTIN 400 MG (NEURONTIN) CAP PO SCH (08:52)
[2020-12-17] MEDS: RT-ALBUTEROL/IPRATROPIUM 3 ML (DUONEB) VIAL INH SCH ×2 (08:52→10:27)
[2020-12-17] MEDS: NICOTINE 14 MG (NICODERM) PATCH TD SCH (08:53)
[2020-12-17] MEDS: methylPREDNISolone 40 MG/ML (Solu-MEDROL) VIAL IV SCH (08:53)
[2020-12-17] MEDS: NICOTINE PATCH REMOVAL TP SCH (08:55)
--- NOTE | 2020-12-17 10:15 | Diagnostic Imaging Report ---
INDICATION: Pneumonia. TIME OF EXAM: 09:03 a.m. COMPARISON: Correlation is made with prior chest one day earlier. FINDINGS: Heart size is stable. There are changes of median sternotomy. Interstitial changes in both lungs appear improved when compared with one day earlier. There continues to be some slight fullness in the right hilar region, however this may be slightly improved. Continued follow-up is recommended. There is no effusion. Lungs do show some hyperinflation. There is no pneumothorax. IMPRESSION: Partial clearing of interstitial infiltrates when compared with exam one day earlier. There continues to be some slight fullness in the right hilum and continued close follow-up is recommended. If this does not resolve, CT of the chest would be recommended for further evaluation. Dictated by: Dictated on workstation # [id number]
--- NOTE | 2020-12-17 10:28 | Physical Therapy Evaluation ---
PT Evaluation-General Medical Diagnosis Admission Date December 15, 2020 at 06:25 Medical Diagnosis: COPD exacerbation/pneumonia Onset Date: December 15, 2020 Therapy Diagnosis Therapy Diagnosis: debility Height/Weight Height (Feet): 5 Height (Inches): 1.00 Weight (Pounds): 114 Weight (Ounces): 6.0 Precautions Precautions/Isolations: Standard Precautions Referral Physician: Malina Reason for Referral: Evaluation/Treatment Medical History Pertinent Medical History: CABG, CAD, COPD, Heart Failure, HTN, [place], Smoking Current History ER secondary to SOA and cough x several weeks Reviewed History: Yes Social History Home: Single Level Current Living Status: Spouse Prior Prior Level of Function SCALE: Activities may be completed with or without assistive devices. 7-Hojmytsonz-fbwmlzw completes the activity by him/herself with no assistance from a helper. 5-Set-up or Clean-up Assistance-helper sets up or cleans up; patient completes activity. [employer] assists only prior to or following the activity. 4-Supervision or Touching Assistance-helper provides verbal cues and/or touching/steadying and/or contact guard assistance as patient completes activity. Assistance may be provided throughout the activity or intermittently. 3-Partial/Moderate Assistance-helper does LESS THAN HALF the effort. [employer] lifts, holds or supports trunk or limbs, but provides less than half the effort. 2-Substantial/Maximal Assistance-helper does MORE THAN HALF the effort. [employer] lifts or holds trunk or limbs and provides more than half the effort. 9-Qflhchnoo-lfqsop does ALL the effort. Patient does none of the effort to complete the activity. Or, the assistance of 2 or more helpers is required for the patient to complete the activity. If activity was not attempted, code reason: 7-Patient Refused. 9-Not Applicable-not attempted and the patient did not perform the activity before the current illness, exacerbation or injury. 10-Not Attempted due to Environmental Limitations-(lack of equipment, weather restraints, etc.). 88-Not Attempted due to Medical Conditions or Safety Concerns. Bed Mobility: 6 Transfers (B,C,W/C): 6 Gait: 6 Stairs: 6 Indoor Mobility (Ambulation): Independent Stairs: Independent Prior Devices Use: None PT Evaluation-Current Subjective Patient agrees to PT. Objective Patient Orientation: Normal For Age Attachments: Oxygen ROM/Strength ROM Lower Extremities bilateral LE WFL Strength Lower Extremities 4-/5 grossly bilateral LE Integumentary/Posture Integumentary refer to nursing notes Bowel Incontinence: No Bladder Incontinence: No Posture WFL Neuromuscular (Tone, Coordination, Reflexes) grossly intact Sensory Vision: Wears Glasses Hearing: Functional Transfers Roll Left to Right (QC): 6 Sit to Lying (QC): 6 Lying to Sitting/Side of Bed(Q: 6 Sit to Stand (QC): 6 Chair/Zkm-ww-Szcxa Xfer(QC): 6 Gait Does the Patient Walk?: Yes Mode of Locomotion: Walk Anticipated Mode of Locomotion: Walk Walk 10 feet (QC): 6 Walk 50 ft with 2 Turns(QC): 6 Walk 150 ft (QC): 6 Distance: 500' Gait Assistive Device: None Comments/Gait Description safe and functional with no deviation Balance Sitting Static: Normal Sitting Dynamic: Normal Standing Static: Normal Standing Dynamic: Normal Picking up an Object (QC): 6 Treatment SAO2 RA prior to ambulation 96%; after 175' 93%; after 250' 93%; after 500' 91% with recovery to 95% after 30 seconds. RN notified of findings and patient remained on RA per RN. Assessment/Needs 60 y.o. female is currently at independent [facility] with all gross motor skills and does not require skilled therapy intervention. Rehab Potential: Fair PT Plan Treatment/Plan Treatment Plan: Discontinue PT, goals met Treatment Duration: December 17, 2020 Frequency: 1 time per week Estimated Hrs Per Day: .25 hour per day Patient and/or Family Agrees t: Yes Discharge Recommendations Therapy Discharge Recommendati: Home & Family Time/GCodes Time In: 931 Time Out: 942 Total Billed Treatment Time: 11 Total Billed Treatment 1 visit [facility] 11 min ELENI RAMIREZ PT December 17, 2020 10:28
[2020-12-17] MEDS ORDERED: ACHD5005 PO (11:31)
[2020-12-17] MEDS ORDERED: AMOX-358 PO (11:31)
[2020-12-17] MEDS ORDERED: NICO1PAT38 TD (11:31)
[2020-12-17] MEDS ORDERED: PRED10TA22 PO (11:31)
[2020-12-17] MEDS ORDERED: IPRA3AMP31 IH (11:31)
--- NOTE | 2020-12-17 11:33 | Discharge Summary ---
Discharge Summary Hospital Course Was the Problem List Reviewed?: Yes Problems/Dx: (1) Pneumonia Status: Acute Qualifiers: Qualified Codes: J18.9 - Pneumonia, unspecified organism (2) Hx of CABG Status: Chronic (3) COPD (chronic obstructive pulmonary disease) Status: Chronic Qualifiers: Qualified Codes: J44.9 - Chronic obstructive pulmonary disease, unspecified (4) Coronary artery disease Status: Chronic (5) COPD exacerbation Status: Acute Hospital Course Date of Admission: December 15, 2020 at 06:25 Admission Diagnosis : Family Physician/Provider: Kelton Murray Date of Discharge: 12/17/20 Discharge Diagnosis: PNA, AECOPD, Smoker Hospital Course: Hospital Course: Pt had a brief hospital course she was admitted for pneumonia and exacerbation of COPD. Antibiotics and IV steroids were initiated with nebulizer treatments, oxygen and BiPAP. Overall she did very well, she did not require ICU transfer, labs remain stable, smoking cessation was counseled and pt was deemed stable for DC on Augmentin 875 twice daily to finish off that course. Nebulizer machine was ordered along with oxygen of 2 liters on exertion and Nicotine patches. Labs and Pending Lab Test: Laboratory Tests 12/16/20 17:50: Vancomycin Level Trough 12.9 12/17/20 05:55: White Blood Count 13.3H, Red Blood Count 4.24, Hemoglobin 12.7, Hematocrit 39, Mean Corpuscular Volume 93, Mean Corpuscular Hemoglobin 30, Mean Corpuscular Hemoglobin Concent 32, Red Cell Distribution Width 13.3, Platelet Count 351, Mean Platelet Volume 9.5, Immature Granulocyte % (Auto) 0, Neutrophils (%) (Auto) 91H, Lymphocytes (%) (Auto) 6L, Monocytes (%) (Auto) 3, Eosinophils (%) (Auto) 0, Basophils (%) (Auto) 0, Neutrophils # (Auto) 12.0H, Lymphocytes # (Auto) 0.8L, Monocytes # (Auto) 0.4, Eosinophils # (Auto) 0.0, Basophils # (Auto) 0.0, Immature Granulocyte # (Auto) 0.1, Sodium Level 135, Potassium Level 4.4, Chloride Level 99, Carbon Dioxide Level 28, Anion Gap 8, Blood Urea Nitrogen 10, Creatinine 0.66, Estimat Glomerular Filtration Rate > 60, BUN/Creatinine Ratio 15, Glucose Level 153H, Calcium Level 9.1, Corrected Calcium 9.5, Total Bilirubin 0.2, Aspartate Amino Transf (AST/SGOT) 12, Alanine Aminotransferase (ALT/SGPT) 11, Alkaline Phosphatase 23L, Total Protein 6.4, Albumin 3.5 Microbiology 12/15/20 Blood Culture - Preliminary, Resulted No growth Home Meds Active Iprat-Albut 0.5-3(2.5) mg/3 ml (Ipratropium/Albuterol Sulfate) 3 Ml Ampul.neb 3 Ml IH BID PRN Augmentin 875-125 Tablet (Amoxicillin/Potassium Clav) 1 Each Tablet 1 Each PO BID Prednisone 10 Mg Tab.ds.pk 10 Mg PO DAILY Take 6 tabs(60mg)daily,decrease by 1 tab(10MG)daily. HYDROcodone/APAP 5 MG/325 MG TAB (Acetaminophen/Hydrocodone Bitart) 1 Tab Tab 1 Ea PO Q4H PRN Nicoderm Cq (Nicotine) 1 Each Patch.td24 14 Mg TD DAILY@0900 Reported Gabapentin 800 Mg Tablet 1,600 Mg PO HS TAKES 2 (800MG) TABS Omeprazole 20 Mg Capsule.dr 20 Mg PO DAILY Promethazine Tablet (Promethazine HCl) 25 Mg Tablet 25 Mg PO Q12H PRN Ropinirole HCl 6 Mg Tab.er.24h 6 Mg PO HS Gabapentin 800 Mg Tablet 800 Mg PO BID Assessment/Pt Instructions [facility] 1 week Discharge Planning: <30 minutes discharge planning Discharge Instructions Discharge Diet: No Restrictions Discharge Physical Examination Vital Signs Vital Signs Date Time Temp Pulse Resp B/P (MAP) Pulse Ox O2 Delivery O2 Flow Rate FiO2 12/17/20 10:49 96 92 86 12/17/20 10:27 Room Air 12/17/20 08:00 93 12/17/20 07:25 36.9 18 140/64 (89) 4.00 General Appearance: No Apparent Distress, WD/WN, Chronically ill Respiratory: Lungs Clear Cardiovascular: Regular Rate, Rhythm Allergies: Coded Allergies: No Known Drug Allergies (Unverified , 08/23/18) Discharge Summary Date of Admission December 15, 2020 at 06:25 Date of Discharge Discharge Date: December 17, 2020 Admission Diagnosis Assessment: Acute on chronic respiratory failure RLL PNA HAP risk COPD Current smoker CAD prev CABG HTN Chronic pain RLS Plan: biPAP O2 Home meds IV abx Discharge Diagnosis Assessment: Acute on chronic respiratory failure RLL PNA HAP risk COPD Current smoker CAD prev CABG HTN Chronic pain RLS Plan: biPAP O2 Home meds IV abx 12/16/20: IV abx BiPAP O2 PT OT tomorrow DC tomorrow? (1) Pneumonia Status: Acute Qualifiers: Qualified Codes: J18.9 - Pneumonia, unspecified organism (2) Hx of CABG Status: Chronic (3) COPD (chronic obstructive pulmonary disease) Status: Chronic Qualifiers: Qualified Codes: J44.9 - Chronic obstructive pulmonary disease, unspecified (4) Coronary artery disease Status: Chronic (5) COPD exacerbation Status: Acute SARABJIT EATON DO December 17, 2020 11:33
[2020-12-17 11:45] VITALS: BP 126/67
[2020-12-17 14:08] VITALS: BP 126/67
== END 2020-12-17 14:08 | disposition home or self-care (01) | DRG 193 ==
LOC: EDUNIT# 04:10 → ER 04:10 → 4TH 06:25 → OBSVTOIN 06:25
PROVIDERS: ADMIT Internal Medicine; ATTEND Internal Medicine
PROC: 5A09357 Assistance with Respiratory Ventilation, Less than 24 Consecutive Hours, Continuous Positive Airway Pressure (ICD-10-PCS; principal; 2020-12-15)
DX: J18.9 Pneumonia, unspecified organism (principal); J96.20 Acute and chronic respiratory failure, unspecified whether with hypoxia or hypercapnia; J44.1 Chronic obstructive pulmonary disease with (acute) exacerbation; E78.00 Pure hypercholesterolemia, unspecified; I10 Essential (primary) hypertension; F17.210 Nicotine dependence, cigarettes, uncomplicated; G25.81 Restless legs syndrome; I25.10 Atherosclerotic heart disease of native coronary artery without angina pectoris; L40.50 Arthropathic psoriasis, unspecified; F41.9 Anxiety disorder, unspecified; F32.9 Major depressive disorder, single episode, unspecified; I25.2 Old myocardial infarction; Z95.1 Presence of aortocoronary bypass graft; Z82.49 Family history of ischemic heart disease and other diseases of the circulatory system
CPT/HCPCS: 36410; 36415; 36600; 71045; 71046; 76937; 80048; 80053; 80202; 82805; 85007; 85025; 85027; 87040; 94640; 94660; 94664; 94760; 94761

== ENCOUNTER 2021-01-10 15:35 | Emergency (ER) | payer MEDICAID ==
[~2021-01-10] VITALS: Ht 157 cm; Wt 57.0 kg
[~2021-01-10 15:35] MED LIST changes: +AMOX-358 PO; +NICO1PAT38 TD; +OMEP20CA18 PO; +PRED10TA22 PO
[2021-01-10] MEDS ORDERED: NAPR-1071 PO (16:00)
[2021-01-10] MEDS ORDERED: METH-731 PO (16:00)
[2021-01-10] MEDS ORDERED: ORPHENADRINE 60 MG/2 ML (NORFLEX) AMP (ED ONLY) IM ONE (16:00)
[2021-01-10] MEDS ORDERED: KETOROLAC 60 MG/2 ML VIAL IM ONE (16:00)
--- NOTE | 2021-01-10 16:01 | ED Back Pain ---
General Chief Complaint: Back Problems Nursing Triage Note: PT AMB TO ROOM 5 PT CO OF R LOW BACK PAIN, STATES FELL BACKWARDS ON MONDAY AND WAS LIFTING ITEMS ON MONDAY AND RATES PAIN10/10 Nursing Sepsis Screen: No Definite Risk Source of Information: Patient Exam Limitations: No Limitations (JASON ROLON APRN) History of Present Illness Date Seen by Provider: January 10, 2021 Time Seen by Provider: 15:58 Initial Comments To ER with reports of a fall a few days ago and subsequent right low back pain that is inhibiting her ability to walk. She also has pain in her head after hitting her head. Location: Lumbar Spine Timing/Duration: 3-4 Days Severity: Moderate Associated Symptoms: lower back pain (JASON ROLON APRN) Allergies and Home Medications Allergies Coded Allergies: No Known Drug Allergies (Unverified , 08/23/18) Home Medications Amoxicillin/Potassium Clav 1 Each Tablet, 1 EACH PO BID Prescribed by: SARABJIT EATON on 12/17/20 1131 Gabapentin 800 Mg Tablet, 800 MG PO BID, (Reported) Gabapentin 800 Mg Tablet, 1,600 MG PO HS, (Reported) TAKES 2 (800MG) TABS Hydrocodone Bit/Acetaminophen 1 Tab Tab, 1 EA PO Q4H PRN for PAIN-MODERATE (5-7) Prescribed by: SARABJIT EATON on 12/17/20 1132 Ipratropium/Albuterol Sulfate 3 Ml Ampul.neb, 3 ML IH BID PRN for SHORTNESS OF BREATH Prescribed by: SARABJIT EATON on 12/17/20 113 Methocarbamol 500 Mg Tablet, 500 MG PO Q6-8HR Prescribed by: JASON ROLON on 01/10/21 1600 Naproxen 500 Mg Tablet, 500 MG PO BID PRN for PAIN-SEVERE (8-10) Prescribed by: JASON ROLON on 01/10/21 1600 Nicotine 1 Each Patch.td24, 14 MG TD DAILY@0900 Prescribed by: SARABJIT EATON on 12/17/20 113 Omeprazole 20 Mg Capsule.dr, 20 MG PO DAILY, (Reported) Prednisone 10 Mg Tab.ds.pk, 10 MG PO DAILY Take 6 tabs(60mg)daily,decrease by 1 tab(10MG)daily. Prescribed by: SARABJIT EATON on 12/17/20 1131 Promethazine HCl 25 Mg Tablet, 25 MG PO Q12H PRN for NAUSEA/VOMITING-1ST LINE, (Reported) Ropinirole HCl 6 Mg Tab.er.24h, 6 MG PO HS, (Reported) Patient Home Medication List Home Medication List Reviewed: Yes (JASON ROLON APRN) Review of Systems Constitutional: see HPI EENTM: see HPI Respiratory: no symptoms reported Cardiovascular: no symptoms reported Genitourinary: no symptoms reported Musculoskeletal: see HPI, back pain Skin: no symptoms reported Psychiatric/Neurological: No Symptoms Reported (JASON ROLON APRN) Past Vbhdebe-Yryafe-Cnxnge Hx Patient Social History Alcohol Use: Denies Use Smoking Status: Current Everyday Smoker Type Used: Cigarettes 2nd Hand Smoke Exposure: Yes Recent Infectious Disease Expo: No Recent Hopitalizations: No (07/03 pneumonia) (JASON ROLON APRN) Immunizations Up To Date Tetanus Booster (TDap): Unknown PED Vaccines UTD: Yes Date of Pneumonia Vaccine: Jul 17, 2017 Date of Influenza Vaccine: Aug 03, 2018 (JASON ROLON APRN) Seasonal Allergies Seasonal Allergies: No (JASON ROLON APRN) Past Medical History Surgeries: Yes (CARPAL TUNNEL, OPEN HEART-4 VESSEL CABG 07/30/18) Abdominal, Cardiac, CABG, Hysterectomy, Oophorectomy, Open Heart Surgery, Orthopedic, Vascular Surgery Respiratory: Yes Asthma, Pneumonia, COPD Currently Using CPAP: No Currently Using BIPAP: No Cardiac: Yes (DC 07/2018 WITH 4 VESSEL CABG 07/30/18) Coronary Artery Disease, Heart Attack, High Cholesterol, Hypertension Neurological: No Female 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 Genitourinary: No Gastrointestinal: No Musculoskeletal: Yes (PSORIATIC ARTHRITIS) Degenerate Disk Disease, Arthritis, Chronic Back Pain Endocrine: No HEENT: Yes (EDENTULOUS, R mastoid bone removed) Cancer: No Psychosocial: No Anxiety, Depression Integumentary: Yes (POST OP WOUND INFECTION TO LEGS POST CABG) Psoriasis Blood Disorders: Yes (POST OP ANEMIA 07/2018--4 UNITS OF BLOOD POST OP) Adverse Reaction/Blood Tranf: No (JASON ROLON APRN) Family Medical History Diabetes, Hypertension NC (JASON ROLON APRN) Physical Exam Vital Signs Vital Signs - First Documented 01/10/21 15:40 Temp 36.2 Pulse 100 Resp 18 B/P (MAP) 103/79 (87) Pulse Ox 94 O2 Delivery Room Air (ORQUIDEA WATTERS MD) Vital Signs Capillary Refill : Less Than 3 Seconds (JASON ROLON APRN) Height, Weight, BMI Height: 5'1.00" Weight: 114lbs. 6.0oz. 51.031416tk; 23.00 BMI Method:Stated General Appearance: No Apparent Distress, WD/WN Neck: Full Range of Motion, Normal Inspection Cardiovascular: Regular Rate, Rhythm, Normal Peripheral Pulses Respiratory: No Accessory Muscle Use, No Respiratory Distress Gastrointestinal: Normal Bowel Sounds, Non Tender, Soft Extremity: Normal Capillary Refill, Normal Inspection Neurologic/Psychiatric: Alert, Oriented x3 Skin: Normal Color, Warm/Dry (JASON ROLON APRN) Procedures/Interventions Date of ETT Placement: Oct 17, 2018 Time of ETT Placement: 1441 (JASON ROLON APRN) Progress/Results/Core Measures Results/Orders Vital Signs/I&O 01/10/21 01/10/21 15:40 17:15 Temp 36.2 Pulse 100 88 Resp 18 18 B/P (MAP) 103/79 (87) 108/72 (87) Pulse Ox 94 94 O2 Delivery Room Air (ORQUIDEA WATTERS MD) Blood Pressure Mean: 87 Progress Progress Note : Progress Note I was physically present in the emergency department as the attending physician during the care of this patient, but I was not directly involved in this patient's care. (ORQUIDEA WATTERS MD) Departure Impression Primary Impression: Back strain Disposition: 01 HOME, SELF-CARE Condition: Stable Departure-Patient Inst. Decision time for Depature: 15:59 (JASON ROLON APRN) Referrals: NO,LOCAL PHYSICIAN (PCP/Family) Primary Care Physician Patient Instructions: Low Back Pain (DC) Scripts Naproxen (Naprosyn) 500 Mg Tablet 500 MG PO BID PRN for PAIN-SEVERE (8-10), #30 TAB 0 Refills Prov: JASON ROLON APRN 01/10/21 Methocarbamol (Methocarbamol) 500 Mg Tablet 500 MG PO Q6-8HR for Back Pain, #10 TAB Prov: JASON ROLON APRN 01/10/21 JASON ROLON APRN January 10, 2021 16:00 ORQUIDEA WATTERS MD Jan 12, 2021 07:27
--- NOTE | 2021-01-10 16:19 | Diagnostic Imaging Report ---
PROCEDURE: CT head and CT cervical spine without contrast. TECHNIQUE: Multiple contiguous axial images were obtained through the brain and cervical spine without the use of intravenous contrast. Sagittal and coronal reformations through the cervical spine were then performed. Auto Exposure Controls were utilized during the CT exam to meet ALARA standards for radiation dose reduction. INDICATION: Trauma, fall. COMPARISON: CT head and C-spine from 12/28/2019 FINDINGS: Head: No hyperdense hemorrhage or space-occupying mass. No hydrocephalus or midline shift. No evidence of territorial infarct. Basilar cisterns are patent. No focal scalp swelling. No skull fracture. The paranasal sinuses and mastoid air cells are clear. Postoperative changes of the globes. Cervical spine: No acute fracture or traumatic malalignment. Chronic irregularity at the tip of the dens is unchanged. No high-grade spinal canal narrowing. Airway is patent. No cervical lymphadenopathy. Visualized thyroid is normal. IMPRESSION: 1. No acute intracranial process or skull fracture. 2. No acute fracture or traumatic malalignment of the cervical spine. Dictated by: Dictated on workstation # [id number]
--- NOTE | 2021-01-10 16:28 | Diagnostic Imaging Report ---
PROCEDURE: CT lumbar spine without contrast. TECHNIQUE: Multiple contiguous axial images were obtained through the lumbar spine without the use of intravenous contrast. Sagittal and coronal reformations were then performed. Auto Exposure Controls were utilized during the CT exam to meet ALARA standards for radiation dose reduction. INDICATION: Low back pain after fall approximately one week ago. COMPARISON: Lumbar spine MRI of 09/10/2019. FINDINGS: Stable straightening of the lumbar spine. No traumatic subluxation or fracture. No sacral insufficiency fracture. Moderate degenerative changes of the SI joints are similar in appearance. No high-grade spinal stenosis. Multilevel mild degenerative disc disease and facet osteoarthritis are all unchanged. Atherosclerotic aorta has borderline ectasia measuring 2.6 cm, which is unchanged. IMPRESSION: 1. No fracture or malalignment in the lumbar spine. 2. Multilevel mild degenerative changes are stable compared to lumbar spine MRI of 09/10/2019. Dictated by: Dictated on workstation # [id number]
[2021-01-10 17:15] VITALS: BP 108/72
== END 2021-01-10 17:16 | disposition home or self-care (01) ==
LOC: EDUNIT# 15:35 → ER 15:38
DX: S39.012A Strain of muscle, fascia and tendon of lower back, initial encounter (principal); G89.29 Other chronic pain; I11.0 Hypertensive heart disease with heart failure; I50.9 Heart failure, unspecified; I25.10 Atherosclerotic heart disease of native coronary artery without angina pectoris; J44.9 Chronic obstructive pulmonary disease, unspecified; F17.210 Nicotine dependence, cigarettes, uncomplicated; Z95.1 Presence of aortocoronary bypass graft; Z79.891 Long term (current) use of opiate analgesic; Z79.52 Long term (current) use of systemic steroids; Z79.899 Other long term (current) drug therapy; W01.198A Fall on same level from slipping, tripping and stumbling with subsequent striking against other object, initial encounter
CPT/HCPCS: 70450; 72125; 72131

== ENCOUNTER → 2021-02-02 | Outpatient (CLI) | payer MEDICAID ==
[~2021-02-02] MED LIST changes: +HOLD METFORMIN - RECEIVED CONTRAST 20 ML VIAL IV SCH; +IOHEXOL 350 MG/ML 100 ML (OMNIPAQUE 350) VIAL IV ONE; +NAPR-1071 PO; +NS 100 ML (IVPB) BAG IV ONE; +RT-ALBUTEROL SULF 2.5 MG/3 ML PRE-MIX VIAL INH ONE
[2021-02-02 13:44] LABS: BUN/CREATININE RATIO 9; CREATININE SERUM 0.58 MG/DL (0.60-1.30); GFR ESTIMATED > 60
--- NOTE | 2021-02-02 16:01 | Diagnostic Imaging Report ---
EXAMINATION: CT chest with intravenous contrast. TECHNIQUE: Multiple contiguous axial images were obtained through the chest after the uneventful administration of intravenous contrast. All CT scans use one or more of the following dose optimizing techniques: automated exposure control, MA and/or KvP adjustment based on patient size and exam type or iterative reconstruction. HISTORY: Dyspnea. COPD. Follow-up. COMPARISON: CTA chest on 10/16/2018. FINDINGS: The heart size is prominent. Post-CABG changes are seen. No pericardial effusion is present. There is calcified aortic and coronary atherosclerotic plaque without evidence of aneurysm. Prominent axillary lymph nodes are seen bilaterally. Mucous plugging is seen in the lung bases. Scattered areas of subsegmental atelectasis are present in the lungs. No focal consolidation or mass. No suspicious pulmonary nodules. No central endobronchial obstructing lesions are identified. There is no pleural effusion or pneumothorax. Calcified pleural plaque is again seen along the right hemidiaphragm. The osseous structures demonstrate no acute abnormalities. Limited views of the upper abdominal structures demonstrate no acute abnormalities. Both adrenal glands are unremarkable. IMPRESSION: 1. Mucous plugging in the lung bases bilaterally. No focal consolidation. 2. Stable appearance of the calcified pleural plaque along the right hemidiaphragm. No evidence of pleural effusion. 3. Nonspecific prominent axillary lymph nodes. The appearance is relatively similar to the prior exam from 2019. Dictated by: Dictated on workstation # [id number]
== END ==
LOC: RT 13:45
PROVIDERS: ATTEND Nurse Practitioner Family
DX: Z13.83 Encounter for screening for respiratory disorder NEC (principal); J44.9 Chronic obstructive pulmonary disease, unspecified
CPT/HCPCS: 36415; 71260; 82565; 84520; 94060; 94726; 94729

== ENCOUNTER → 2021-05-13 | Outpatient (CLI) | payer MEDICAID ==
[~2021-05-13] MED LIST changes: +CATHETER FLUSH 10 ML SYR IV PRN; -CLIN150C18 PO; +CLIN150C20 PO; -RT-ALBUTEROL SULF 2.5 MG/3 ML PRE-MIX VIAL INH ONE
[2021-05-13 09:46] LABS: CREATININE SERUM 0.71 MG/DL (0.60-1.30)
--- NOTE | 2021-05-13 12:46 | Diagnostic Imaging Report ---
PROCEDURE: CT chest with contrast only. TECHNIQUE: Multiple contiguous axial images were obtained through the chest after administration of intravenous contrast. Auto Exposure Controls were utilized during the CT exam to meet ALARA standards for radiation dose reduction. INDICATION: Congestion, cardiac surgery. COMPARISON: Exam compared with study 02/02/2021. FINDINGS: Benign calcified pleural plaques in the right lung base with some subjacent subpleural scarring are chronic. There is some thickening of the central airways, which may reflect a component of bronchitis. The heart is mildly enlarged but unchanged. There is also similar mild vascular congestion. No convincing evidence for pulmonary edema. There are some areas of intraluminal mucus within central airways, similar in overall magnitude from prior but showing differing distributions. No pleural or pericardial effusion. No pneumothorax. Previous sternotomy without dehiscence present. No acute or suspect chest wall pathology. No hilar or mediastinal lymphadenopathy. Visualized upper abdomen showed no acute abnormality. IMPRESSION: There are chronic benign calcified pleural plaques and some chronic or recurrent mild cardiomegaly and vascular congestion but no zackary edema or pneumonia. Some chronic mucus plugging in lower lobe airways showing mild thickening. Correlate for process such as bronchitis. Subpleural scarring in the right lung base is stable associated with the pleural plaques. Overall, no substantial change from prior. Dictated by: Dictated on workstation # [id number]
== END ==
LOC: RAD 09:09
PROVIDERS: ATTEND Nurse Practitioner Family
DX: J92.9 Pleural plaque without asbestos (principal); J81.1 Chronic pulmonary edema; I51.7 Cardiomegaly
CPT/HCPCS: 36415; 71260; 82565; 84520

== ENCOUNTER 2021-12-12 14:34 | Emergency (ER) | payer MEDICAID ==
[~2021-12-12] VITALS: Ht 157 cm; Wt 54.0 kg
[~2021-12-12 14:34] MED LIST changes: -AMIO200T6 PO; +AMIO200T65 PO; -CATHETER FLUSH 10 ML SYR IV PRN; +CLIN-144 PO; -CLIN300C12 PO; -FLUC150T2 PO; +FLUC150T41 PO; -HOLD METFORMIN - RECEIVED CONTRAST 20 ML VIAL IV SCH; -IOHEXOL 350 MG/ML 100 ML (OMNIPAQUE 350) VIAL IV ONE; -LISI-729 PO; +LISI5TAB20 PO; -MAGN400T8 PO; +MGX400T PO; -NS 100 ML (IVPB) BAG IV ONE; +POTA-169 PO; -POTA20TA8 PO; +TIZA-186 PO; -TIZA4TAB4 PO
[2021-12-12] MEDS ORDERED: CYCL10TA25 PO (14:52)
[2021-12-12] MEDS ORDERED: KETO10TA PO (14:52)
--- NOTE | 2021-12-12 14:52 | ED Back Pain ---
General Chief Complaint: Back Problems Stated Complaint: LEG PAIN Source of Information: Patient History of Present Illness Date Seen by Provider: December 12, 2021 Time Seen by Provider: 14:40 Initial Comments PT ARRIVES VIA POV FROM HOME C/O CHRONIC LOW BACK PAIN WITH RADIATION OF PAIN DOWN LEFT LEG STATES SHE HAS FREQUENT SCIATICA THESE SYMPTOMS ARE EXACTLY THE SAME HAS SHE HAS HAD FOR YEARS STATES THE LAST COUPLE OF MONTHS HER PAIN HAS GOTTEN WORSE, BUT HAS BEEN PROGRESSIVELY GETTING WORSE SINCE LAST MONDAY NO PARESTHESIAS OR MOTOR DEFICITS NO LOSS OF BOWEL OR BLADDER CONTROL NO RECENT INJURY STATES SHE WAS HAVING TO LIFT HER SISTER THE LAST COUPLE OF MONTHS ( SISTER [place] IN NOVEMBER, DID HER BROTHER) HAS NOT SOUGHT CARE AT ANY TIME, UNTIL TODAY SYMPTOMS NO DIFFERENT TODAY, STATES SHE "JUST CAN'T TAKE IT ANYMORE" TOOK 800 MG IBUPROFEN THIS AM, OTHERWISE HAS NOT TAKEN ANYTHING ELSE FOR PAIN Other Comments PCP: [facility]--HAS NOT BEEN THERE IN A LONG TIME Allergies and Home Medications Allergies Coded Allergies: No Known Drug Allergies (Unverified , 08/23/18) Patient Home Medication List Home Medication List Reviewed: Yes Amoxicillin/Potassium Clav (Augmentin 875-125 Tablet) 1 Each Tablet, 1 EACH PO BID Prescribed by: SARABJIT EATON on 12/17/20 1131 Cyclobenzaprine HCl (Cyclobenzaprine HCl) 10 Mg Tablet, 10 MG PO Q8H PRN for SPASMS Prescribed by: LATONIA BOUCHER on 12/12/21 1452 Gabapentin (Gabapentin) 800 Mg Tablet, 800 MG PO BID, (Reported) Entered as Reported by: KARINA COMBS on 10/16/18 1606 Gabapentin (Gabapentin) 800 Mg Tablet, 1,600 MG PO HS, (Reported) Entered as Reported by: KATHI TOM on 12/15/20 1130 Hydrocodone Bit/Acetaminophen (HYDROcodone/APAP 5 MG/325 MG TAB) 1 Tab Tab, 1 EA PO Q4H PRN for PAIN-MODERATE (5-7) Prescribed by: SARABJIT EATON on 12/17/20 1132 Ipratropium/Albuterol Sulfate (Iprat-Albut 0.5-3(2.5) mg/3 ml) 3 Ml Ampul.neb, 3 ML IH BID PRN for SHORTNESS OF BREATH Prescribed by: SARABJIT EATON on 12/17/20 1131 Ketorolac Tromethamine (Ketorolac Tromethamine) 10 Mg Tablet, 10 MG PO Q6H Prescribed by: LATONIA BOUCHER on 12/12/21 1452 Methocarbamol (Methocarbamol) 500 Mg Tablet, 500 MG PO Q6-8HR Prescribed by: JASON ROLON on 01/10/21 1600 Naproxen (Naprosyn) 500 Mg Tablet, 500 MG PO BID PRN for PAIN-SEVERE (8-10) Prescribed by: JASON ROLON on 01/10/21 1600 Nicotine (Nicoderm Cq) 1 Each Patch.td24, 14 MG TD DAILY@0900 Prescribed by: SARABJIT EATON on 12/17/20 1131 Omeprazole (Omeprazole) 20 Mg Capsule.dr, 20 MG PO DAILY, (Reported) Entered as Reported by: KATHI TOM on 12/15/20 1123 Prednisone (Prednisone) 10 Mg Tab.ds.pk, 10 MG PO DAILY Prescribed by: SARABJIT EATON on 12/17/20 1131 Promethazine HCl (Promethazine Tablet) 25 Mg Tablet, 25 MG PO Q12H PRN for NAUSEA/VOMITING-1ST LINE, (Reported) Entered as Reported by: MARY AGUILERA on 06/26/20 1414 Ropinirole HCl (Ropinirole HCl) 6 Mg Tab.er.24h, 6 MG PO HS, (Reported) Entered as Reported by: MARY AGUILERA on 06/26/20 1414 Review of Systems Constitutional: no symptoms reported Respiratory: no symptoms reported Cardiovascular: no symptoms reported Gastrointestinal: no symptoms reported Genitourinary: no symptoms reported; No dysuria Musculoskeletal: see HPI Skin: no symptoms reported; No rash Psychiatric/Neurological: No Symptoms Reported; Denies Numbness, Denies Paresthesia, Denies Tingling, Denies Weakness Past Sjlkwgj-Dlohsi-Neeyhb Hx Patient Social History Tobacco Use?: Yes Tobacco type used: Cigarettes Smoking Status: Current Everyday Smoker Substance use?: No Alcohol Use?: Yes Alcohol Frequency: Rarely Immunizations Up To Date Tetanus Booster (TDap): Unknown PED Vaccines UTD: Yes Seasonal Allergies Seasonal Allergies: No Past Medical History Surgeries: Yes (CARPAL TUNNEL, OPEN HEART-4 VESSEL CABG 07/30/18; R MASTOID BONE REMOVED) Abdominal, Cardiac, CABG, Hysterectomy, Oophorectomy, Open Heart Surgery, Orthopedic, Vascular Surgery Respiratory: Yes Asthma, Pneumonia, COPD Currently Using CPAP: No Currently Using BIPAP: No Cardiac: Yes (IA 07/2018 WITH 4 VESSEL CABG 07/30/18) Coronary Artery Disease, Heart Attack, High Cholesterol, Hypertension Neurological: No Female 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 Disorders: 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 Genitourinary: No Gastrointestinal: No Musculoskeletal: Yes (PSORIATIC ARTHRITIS; SCIATICA) Degenerate Disk Disease, Arthritis, Chronic Back Pain Endocrine: No HEENT: Yes (EDENTULOUS, R mastoid bone removed) Cancer: No Psychosocial: Yes Anxiety, Depression Integumentary: Yes (POST OP WOUND INFECTION TO LEGS POST CABG) Psoriasis Blood Disorders: Yes (POST OP ANEMIA 07/2018--4 UNITS OF BLOOD POST OP) Adverse Reaction/Blood Tranf: No Family Medical History Diabetes, Hypertension NC Physical Exam Vital Signs Vital Signs - First Documented 12/12/21 14:40 Temp 36.3 Pulse 97 Resp 18 B/P (MAP) 176/86 (116) Pulse Ox 97 Capillary Refill : Height, Weight, BMI Height: 5'1.00" Weight: 114lbs. 6.0oz. 51.246776dt; 23.00 BMI Method:Stated General Appearance: No Apparent Distress, WD/WN, Thin Cardiovascular: Regular Rate, Rhythm, No Murmur Respiratory: Normal Breath Sounds Gastrointestinal: Non Tender, Soft Back: No CVA Tenderness, No Vertebral Tenderness Extremity: Normal Capillary Refill, Non Tender, No Calf Tenderness, No Pedal Edema, Other (+ STRAIGHT LEG RAISING AT LESS THAN 30 DEGRESS ON LEFT. MOTOR/SENSORY/VASCULAR INTACT. FEET WARM AND PINK. ) Neurologic/Psychiatric: Alert, Oriented x3, No Motor/Sensory Deficits, Normal Mood/Affect, transfer and pumphouse operator II-XII Norm as Tested Skin: Normal Color, Warm/Dry; No Rash Procedures/Interventions Date of ETT Placement: Oct 17, 2018 Time of ETT Placement: 1441 Progress/Results/Core Measures Results/Orders My Orders Orders - LATONIA BOUCHER DO Methylprednisolone Sod Succ (Solu-Medrol (12/12/21 15:00) Ketorolac Injection (Toradol Injection) (12/12/21 15:00) Orphenadrine Inj (Ed Only) (Norflex Inje (12/12/21 15:00) Medications Given in ED Current Medications Medications Dose Ordered Sig/Lance Route Start Time Stop Time Status Last Admin Dose Admin Ketorolac Tromethamine 60 mg ONCE ONCE IM 12/12/21 15:00 12/12/21 15:01 DC 12/12/21 15:00 60 MG Methylprednisolone Sodium Succinate 125 mg ONCE ONCE IM 12/12/21 15:00 12/12/21 15:01 DC 12/12/21 15:00 125 MG Orphenadrine Citrate 60 mg ONCE ONCE IM 12/12/21 15:00 12/12/21 15:01 DC 12/12/21 15:01 60 MG Vital Signs/I&O 12/12/21 14:40 Temp 36.3 Pulse 97 Resp 18 B/P (MAP) 176/86 (116) Pulse Ox 97 Progress Progress Note : Progress Note PT REQUESTS SHOTS OF TORADOL AND STEROIDS--STATES SHE DOES NOT WANT ORAL STEROIDS DUE TO SIDE EFFECTS OF ANXIETY, ETC. Departure Impression Primary Impression: Acute exacerbation of chronic low back pain Additional Impression: EXACERBATION OF CHRONIC SCIATICA Disposition: HOME, SELF-CARE Condition: Stable Departure-Patient Inst. Decision time for Depature: 14:50 Referrals: [facility] Patient Instructions: MANAGING YOUR CHRONIC PAIN, Sciatica ED, Low Back Pain ED Add. Discharge Instructions: ALTERNATE ICE AND HEAT TO SORE AREA AT 20 MINUTE INTERVALS FOLLOW UP WITH [facility] THIS WEEK FOR FURTHER CARE All discharge instructions reviewed with patient and/or family. Voiced under standing. Scripts Cyclobenzaprine HCl (Cyclobenzaprine HCl) 10 Mg Tablet 10 MG PO Q8H PRN for SPASMS, #15 TAB 0 Refills Prov: LATONIA BOUCHER DO 12/12/21 Ketorolac Tromethamine (Ketorolac Tromethamine) 10 Mg Tablet 10 MG PO Q6H for Pain, #15 TAB Prov: LATONIA BOUCHER DO 12/12/21 LATONIA BOUCHER DO December 12, 2021 14:52
[2021-12-12] MEDS ORDERED: methylPREDNISolone 125 MG (Solu-MEDROL) VIAL IM ONE (15:00)
[2021-12-12] MEDS ORDERED: ORPHENADRINE 60 MG/2 ML (NORFLEX) AMP (ED ONLY) IM ONE (15:00)
[2021-12-12] MEDS ORDERED: KETOROLAC 60 MG/2 ML VIAL IM ONE (15:00)
[2021-12-12 15:14] VITALS: BP 176/86
== END 2021-12-12 15:15 | disposition home or self-care (01) ==
LOC: EDUNIT# 14:34 → ER 14:35
DX: M54.42 Lumbago with sciatica, left side (principal); F17.210 Nicotine dependence, cigarettes, uncomplicated
CPT/HCPCS: 99284

== ENCOUNTER 2021-12-29 09:30 | Emergency (ER) | payer MEDICAID ==
[~2021-12-29] VITALS: Ht 157.4 cm; Wt 52.0 kg
[~2021-12-29 09:30] MED LIST changes: +CYCL10TA25 PO; +KETO10TA PO
[2021-12-29 09:43] VITALS: BP 144/101
--- NOTE | 2021-12-29 10:17 | ED Back Pain ---
General Chief Complaint: Back Problems Stated Complaint: SCIATIC PAIN Nursing Triage Note: This patient came from home to the ED via ambulation with C/O sciatic pain that bothers her left leg and back. She states that she was here for the same issue about 3 weeks ago and doesn't see her doctor for it until the . The patient states that she cannot "take it anymore." Source of Information: Patient Exam Limitations: No Limitations History of Present Illness Date Seen by Provider: December 29, 2021 Time Seen by Provider: 10:05 Initial Comments Patient is a 61-year-old female who presents to the emergency room with a chief complaint of "sciatic nerve pain". Patient states that it radiates from her back down into her left buttock and down her leg to her calf. Patient states she was seen in the emergency room 3 weeks ago and was given some Toradol. She states she has a follow-up appointment scheduled with a new doctor at [facility], Dr. Buck on 05 January. She states that she "cannot take the pain anymore". She has been taking 800 mg ibuprofen as well. She does not believe she is ever been on steroids. She has a history of arthritis in her back. She tells me that she has had previous MRIs. She denies any problems with perineal anesthesia, no loss of function of bowel or bladder. She states the leg does not feel weak. Just intense pain. She is a smoker with a history of coronary artery bypass grafting. Moving and standing upright makes the pain worse. Lifting her left leg makes her pain worse. No recent fevers, chills, burning with urination. No productive cough. All other review of system reviewed and negative except as stated. Timing/Duration: Other (3 weeks to "months") Severity: Severe Pain/Injury Location: Lower Extremity (left) Radiation: Buttocks (left) Modifying Factors: Improves With Immobilization (sitting bent over improves pain); Worse With Movement Associated Symptoms: No numbness in legs/feet, No tingling in legs/feet, No sensory/motor loss; lower back pain; No loss of bladder control, No loss of bowel control Allergies and Home Medications Allergies Coded Allergies: No Known Drug Allergies (Unverified , 08/23/18) Patient Home Medication List Home Medication List Reviewed: Yes Amoxicillin/Potassium Clav (Augmentin 875-125 Tablet) 1 Each Tablet, 1 EACH PO BID Prescribed by: SARABJIT EATON on 12/17/20 113 Cyclobenzaprine HCl (Cyclobenzaprine HCl) 10 Mg Tablet, 10 MG PO Q8H PRN for SPASMS Prescribed by: LATONIA BOUCHER on 12/12/21 1452 Gabapentin (Gabapentin) 800 Mg Tablet, 800 MG PO BID, (Reported) Entered as Reported by: KARINA COMBS on 10/16/18 1606 Gabapentin (Gabapentin) 800 Mg Tablet, 1,600 MG PO HS, (Reported) Entered as Reported by: KATHI TOM on 12/15/20 1130 Hydrocodone Bit/Acetaminophen (HYDROcodone/APAP 5 MG/325 MG TAB) 1 Tab Tab, 1 EA PO Q4H PRN for PAIN-MODERATE (5-7) Prescribed by: SARABJIT EATON on 12/17/20 113 Ipratropium/Albuterol Sulfate (Iprat-Albut 0.5-3(2.5) mg/3 ml) 3 Ml Ampul.neb, 3 ML IH BID PRN for SHORTNESS OF BREATH Prescribed by: SARABJIT EATON on 12/17/20 113 Ketorolac Tromethamine (Ketorolac Tromethamine) 10 Mg Tablet, 10 MG PO Q6H Prescribed by: LATONIA BOUCHER on 12/12/21 1452 Methocarbamol (Methocarbamol) 500 Mg Tablet, 500 MG PO Q6-8HR Prescribed by: JASON ROLON on 01/10/21 1600 Naproxen (Naprosyn) 500 Mg Tablet, 500 MG PO BID PRN for PAIN-SEVERE (8-10) Prescribed by: JASON ROLON on 01/10/21 1600 Nicotine (Nicoderm Cq) 1 Each Patch.td24, 14 MG TD DAILY@0900 Prescribed by: SARABJIT EATON on 12/17/20 113 Omeprazole (Omeprazole) 20 Mg Capsule.dr, 20 MG PO DAILY, (Reported) Entered as Reported by: KATHI TOM on 12/15/20 112 Prednisone (Prednisone) 10 Mg Tab.ds.pk, 10 MG PO DAILY Prescribed by: SARABJIT EATON on 12/17/20 113 Promethazine HCl (Promethazine Tablet) 25 Mg Tablet, 25 MG PO Q12H PRN for NAUSEA/VOMITING-1ST LINE, (Reported) Entered as Reported by: MARY AGUILERA on 06/26/20 141 Ropinirole HCl (Ropinirole HCl) 6 Mg Tab.er.24h, 6 MG PO HS, (Reported) Entered as Reported by: MARY AGUILERA on 06/26/201413 Review of Systems Constitutional: see HPI EENTM: no symptoms reported Respiratory: cough (chronic) Cardiovascular: no symptoms reported Gastrointestinal: no symptoms reported Genitourinary: no symptoms reported Musculoskeletal: back pain, joint pain (left hip and buttick; left leg) Skin: no symptoms reported Psychiatric/Neurological: No Symptoms Reported All Other Systems Reviewed Negative Unless Noted: Yes Past Wdrixcp-Gocwyu-Ckcgnn Hx Immunizations Up To Date Tetanus Booster (TDap): Unknown PED Vaccines UTD: Yes First/Initial COVID19 Vaccinat: 2020 Second COVID19 Vaccination Loco: 2020 Seasonal Allergies Seasonal Allergies: No Past Medical History Surgeries: Yes (CARPAL TUNNEL, OPEN HEART-4 VESSEL CABG 07/30/18; R MASTOID BONE REMOVED) Abdominal, Cardiac, CABG, Hysterectomy, Oophorectomy, Open Heart Surgery, Orthopedic, Vascular Surgery Respiratory: Yes Asthma, Pneumonia, COPD Currently Using CPAP: No Currently Using BIPAP: No Cardiac: Yes (OR 07/2018 WITH 4 VESSEL CABG 07/30/18) Coronary Artery Disease, Heart Attack, High Cholesterol, Hypertension Neurological: No Female 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 Disorders: 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 Genitourinary: No Gastrointestinal: No Musculoskeletal: Yes (PSORIATIC ARTHRITIS; SCIATICA) Degenerate Disk Disease, Arthritis, Chronic Back Pain Endocrine: No HEENT: Yes (EDENTULOUS, R mastoid bone removed) Cancer: No Psychosocial: Yes Anxiety, Depression Integumentary: Yes (POST OP WOUND INFECTION TO LEGS POST CABG) Psoriasis Blood Disorders: Yes (POST OP ANEMIA 07/2018--4 UNITS OF BLOOD POST OP) Adverse Reaction/Blood Tranf: No Family Medical History Diabetes, Hypertension NC Physical Exam Vital Signs Vital Signs - First Documented 12/29/21 09:43 Temp 36.8 Pulse 85 Resp 22 B/P (MAP) 144/101 (115) Pulse Ox 95 O2 Delivery Room Air Capillary Refill : Less Than 3 Seconds Height, Weight, BMI Height: 5'1.00" Weight: 114lbs. 6.0oz. 51.897812bz; 20.00 BMI Method:Stated General Appearance: WD/WN, Anxious, Mild Distress (tearful) HEENT: PERRL/EOMI Neck: Full Range of Motion Cardiovascular: Regular Rate, Rhythm, Normal Peripheral Pulses (2+ DP pulses bilaterally) Respiratory: Lungs Clear, Normal Breath Sounds, No Accessory Muscle Use, No Respiratory Distress Gastrointestinal: Non Tender, Soft Back: Vertebral Tenderness (tender to palp T8-10 and into left buttock; neg SLR bilaterally; intact motor sensory fucntion to LLE) Extremity: Normal Inspection, Normal Range of Motion, No Calf Tenderness Neurologic/Psychiatric: Alert, Oriented x3, No Motor/Sensory Deficits, Normal Mood/Affect, manager division II-XII Norm as Tested Procedures/Interventions Date of ETT Placement: Oct 17, 2018 Time of ETT Placement: 1441 Progress/Results/Core Measures Results/Orders My Orders Orders - MICAH KIRBY MD Orphenadrine Inj (Ed Only) (Norflex Inje (12/29/21 10:30) Prednisone Tablet (Deltasone Tablet) (12/29/21 10:30) Hydrocodone/Apap 5/325 Tablet (Lortab 5 (12/29/21 10:30) Medications Given in ED Current Medications Medications Dose Ordered Sig/Lance Route Start Time Stop Time Status Last Admin Dose Admin Acetaminophen/ Hydrocodone Bitart 1 ea ONCE ONCE PO 12/29/21 10:30 12/29/21 10:31 DC 12/29/21 10:28 1 EA Orphenadrine Citrate 60 mg ONCE ONCE IM 12/29/21 10:30 12/29/21 10:31 DC 12/29/21 10:27 60 MG Prednisone 50 mg ONCE ONCE PO 12/29/21 10:30 12/29/21 10:31 DC 12/29/21 10:28 50 MG Vital Signs/I&O 12/29/21 09:43 Temp 36.8 Pulse 85 Resp 22 B/P (MAP) 144/101 (115) Pulse Ox 95 O2 Delivery Room Air Blood Pressure Mean: 115 Progress Progress Note : Time: 11:32 Progress Note Patient reevaluated, she feels much better. Advised her that I would be sending her home with a steroid taper as well as some pain medications. She is grateful for this. Plans to follow-up with Dr. Buck in about a week to week and a half. Return precautions discussed. She is comfortable with the plan of care. All questions are sought and answered. Patient is stable for discharge. Departure Impression Primary Impression: Sciatica of left side Disposition: 01 HOME, SELF-CARE Condition: Improved Departure-Patient Inst. Decision time for Depature: 11:33 Referrals: KATHI BUCK,LOCAL PHYSICIAN (PCP) Primary Care Physician Patient Instructions: Sciatica Add. Discharge Instructions: Alternate heat and ice to your left low back for comfort. You can also use lidocaine patches over the area of pain. Ibuprofen 3 tablets which is 600 every 8 hours with food as needed for pain. In addition I have written you for some hydrocodone. You can take 1 tablet every 6 hours as needed with food for pain. Do not drive and take this medication. This medication can also cause constipation. Please take daily stool softeners while taking this pain medication. I have also put you on a steroid taper. Take this medication as well with food. While you are taking the steroids you need to be on an acid worm sorter such as mahj-rhu-clmaukn Prilosec or Pepcid. Especially take this medication if you are also taking ibuprofen Return to the emergency room for any worsening pain especially with weakness in your left leg, loss of bowel or bladder function or any other emergent concerning symptoms. Scripts Prednisone (Prednisone) 10 Mg Tab.ds.pk 10 MG PO DAILY, #21 EA Take 6 tabs(60mg)daily,decrease by 1 tab(10MG)daily. Prov: MICAH KIRBY MD 12/29/21 Hydrocodone/Acetaminophen (Hydrocodone-Acetamin 5-325 mg) 5 Mg-325 Mg Tablet 1 TAB PO Q6H PRN for PAIN-MODERATE (5-7), #10 TAB Prov: MICAH KIRBY MD 12/29/21 Copy Copies To 1: KATHI BUCK KATHRYN M MD December 29, 2021 10:16
[2021-12-29] MEDS ORDERED: predniSONE 20 MG TAB PO ONE (10:30)
[2021-12-29] MEDS ORDERED: HYDROcodone/APAP 5 MG/325 MG (LORTAB) TAB PO ONE (10:30)
[2021-12-29] MEDS ORDERED: ORPHENADRINE 60 MG/2 ML (NORFLEX) AMP (ED ONLY) IM ONE (10:30)
[2021-12-29] MEDS ORDERED: PRED10TA22 PO (11:35)
[2021-12-29] MEDS ORDERED: ACHD5005 PO (11:35)
== END 2021-12-29 11:45 | disposition home or self-care (01) ==
LOC: EDUNIT# 09:30 → ER 09:31
DX: M54.32 Sciatica, left side (principal); M47.9 Spondylosis, unspecified; F17.200 Nicotine dependence, unspecified, uncomplicated
CPT/HCPCS: 99284

== ENCOUNTER → 2022-01-18 | Outpatient (CLI) | payer MEDICAID ==
--- NOTE | 2022-01-18 11:36 | Diagnostic Imaging Report ---
CLINICAL INDICATION: Patient with chronic low back pain and in September a heavy lifting injury. Patient has low back pain. EXAM: MRI of the lumbar spine without contrast. Sequences include sagittal T2, sagittal T1, sagittal T2 fat-sat, and axial T2. COMPARISON: CT scan of the lumbar spine without contrast dated 01/10/2021. FINDINGS: There is no acute lumbar spine fracture or dislocation. There are minimal Modic type I degenerative signal changes involving the L5-S1 endplates. There are hypertrophic spurs throughout the lumbar spine and facet arthropathy. The visualized portions of the distal thoracic spinal cord, conus medullaris, and cauda equina nerve roots are unremarkable. The conus medullaris tip is seen at the L1-L2 intervertebral level. There is no significant paraspinal soft tissue abnormality. T12-L1: Unremarkable. L1-L2: Unremarkable. L2-L3: Unremarkable. L3-L4: There is minimal disc bulging. There is no significant central canal narrowing. There is no significant left neural foramen narrowing and minimal right neural foramen narrowing. L4-L5: There is mild loss of disc space height. There is moderate bilateral facet arthropathy/hypertrophy. There is degenerative facet effusion on the right side. There is ujklxmmo-nt-bdmoea bilateral neural foramen narrowing which was also noted on the prior study. There is mild central canal stenosis. L5-S1: There is a diffuse disc bulge with moderate loss of disc space height. There are disc spurs extending into the foraminal regions bilaterally. There is mild bilateral facet arthropathy. There is no significant central canal stenosis. There is qgcr-lg-wecpzpmc right neural foramen narrowing and severe left neural foramen narrowing. IMPRESSION: 1: There is no acute lumbar spine fracture or dislocation. 2: Multilevel lumbar spine degenerative disc disease which is described above. Dictated by: Dictated on workstation # [id number]
== END ==
LOC: RAD 10:15
PROVIDERS: ATTEND Pediatrics
DX: M51.37 Other intervertebral disc degeneration, lumbosacral region (principal); M51.27 Other intervertebral disc displacement, lumbosacral region; M47.817 Spondylosis without myelopathy or radiculopathy, lumbosacral region; M48.07 Spinal stenosis, lumbosacral region
CPT/HCPCS: 72148

== ENCOUNTER → 2022-05-13 | Outpatient (CLI) | payer MEDICAID ==
[~2022-05-13] MED LIST changes: +LEVO750T PO; -LEVO750T39 PO
== END ==
LOC: CARD 13:30
PROVIDERS: ATTEND Internal Medicine Cardiovascular Disease
DX: I07.1 Rheumatic tricuspid insufficiency (principal); I11.9 Hypertensive heart disease without heart failure
CPT/HCPCS: 93306

== ENCOUNTER → 2022-05-30 | Outpatient (CLI) | payer MEDICAID ==
[~2022-05-30] MED LIST changes: +CATHETER FLUSH 10 ML SYR IVP PRN; +ONDANSETRON 4 MG/2 ML (SDV) Z0FRAN IVP ONE; +ONDANSETRON 4 MG/2 ML (SDV) Z0FRAN ONE; +REGADENOSON 0.4 MG/5 ML SYR (LEXISCAN) IV ONE
[2022-05-30 09:19] VITALS: BP 149/69
--- NOTE | 2022-05-30 12:12 | Cardiology Stress Test Report ---
Stress Test Report Date of Procedure/Referring: Date of Procedure: May 30, 2022 PCP No,Local Physician Admitting Physician Admitting Physician: Attending Physician: Supa Mckenzie MD Baseline Heart Rate: 82 Baseline Blood Pressure: Blood Pressure Systolic: 149 Blood Pressure Diastolic: 69 Baseline Vitals Vital Signs Date Time Temp Pulse Resp B/P (MAP) Pulse Ox O2 Delivery O2 Flow Rate FiO2 05/30/22 09:19 62 149/69 (95) Baseline EKG: Baseline EKG: NSR Summary After explaining the procedure to the patient, she signed a consent and then brought to the stress nuclear laboratory. Patient received 0.4 mg Lexiscan for stress test, ECG, heart rate and blood pressure were monitored continuously. Resting and stress dose of radio tracer were injected, imaging was acquired and reviewed in short axis, horizontal long axis and vertical long axis views. TID: 0.97 SSS: 6 SDS: 1 EF: 76 1. Patient tolerated Lexiscan well 2. Breast attenuation with typical female pattern, no significant ischemia or infarction on SPECT images 3. Normal left ventricular size, ejection fraction 76% SUPA MCKENZIE MD May 30, 2022 12:12
== END ==
LOC: CARD 07:45
PROVIDERS: ATTEND Internal Medicine Cardiovascular Disease
DX: I25.10 Atherosclerotic heart disease of native coronary artery without angina pectoris (principal); I10 Essential (primary) hypertension
CPT/HCPCS: 78452; 93017; A9502

== ENCOUNTER 2022-06-23 05:51 | Day surgery (SDC) | payer MEDICAID ==
[~2022-06-23] VITALS: Ht 157.5 cm; Wt 56.3 kg
[2022-06-23] VITALS (13 sets, daily range): BP systolic 109–168; BP diastolic 60–84
[~2022-06-23 05:51] MED LIST changes: +ALBU90AE2 IH; +ATOR80TA76 PO; +BUDE10.27 IH; -CATHETER FLUSH 10 ML SYR IVP PRN; +CETI10TA17 PO; +FLUT15.845 NS; +LIDO1ADH66 TP; -ONDANSETRON 4 MG/2 ML (SDV) Z0FRAN IVP ONE; -ONDANSETRON 4 MG/2 ML (SDV) Z0FRAN ONE; +PREG75CA75 PO; -REGADENOSON 0.4 MG/5 ML SYR (LEXISCAN) IV ONE
[2022-06-23] MEDS: LACTATED RINGERS 1,000 ML IV PRN ×2 (06:39→08:51)
[2022-06-23] MEDS ORDERED: ceFAZolin INJECTION 2,000 MG in NS (IVPB) 50 ML IV ONE (06:45)
[2022-06-23] MEDS ORDERED: MIDAZOLAM 2 MG/2 ML (VERSED) VIAL IV ONE (07:00)
[2022-06-23] MEDS ORDERED: ONDANSETRON 4 MG/2 ML (SDV) Z0FRAN IV ONE (07:00)
[2022-06-23] MEDS ORDERED: MIDAZOLAM 2 MG/2 ML (VERSED) VIAL ONE (07:17)
[2022-06-23] MEDS ORDERED: ROCURONIUM 10 MG/ML 5 ML SYRINGE IV ONE (07:17)
[2022-06-23] MEDS ORDERED: fentaNYL INJ 100 MCG/2 ML AMP ONE (07:17)
[2022-06-23] MEDS ORDERED: SEVOFLURANE (ULTANE) 15 ML INHAL SOLN ONE (07:17)
[2022-06-23] MEDS ORDERED: proPOfol 200 MG/20 ML (DIPRIVAN) VIAL IV ONE (07:17)
[2022-06-23] MEDS ORDERED: ONDANSETRON 4 MG/2 ML (SDV) Z0FRAN ONE (07:17)
[2022-06-23] MEDS ORDERED: LIDOCAINE PF 2% 5 ML (XYLOCAINE) VIAL ONE (07:17)
[2022-06-23] MEDS ORDERED: BUP/EPI 0.5% 1:200,000 (MARCAINE) 10ML VIAL IJ ONE (07:26)
--- NOTE | 2022-06-23 08:02 | Progress Note-Pre Operative ---
Pre-Operative Progress Note Date of Available H&P: Jun 01, 2012 Date H&P Reviewed: Jun 23, 2022 Time H&P Reviewed: 07:45 History & Physical: H&P Reviewed, Patient Examed, No changes noted Pre-Operative Diagnosis: incisional hernia MIGUEL ANGEL JOAQUIN DO Jun 23, 2022 08:02
[2022-06-23] MEDS ORDERED: PHENYLEPHRINE 100 MCG/ML 10 ML (ANESTHESIA) SYR ONE (08:20)
[2022-06-23] MEDS ORDERED: ISOFLURANE (FORANE) 15 ML/15 MIN INHALATION ONE ×2 (08:21→08:53)
[2022-06-23] MEDS ORDERED: SUGAMMADEX 500 MG/5 ML VIAL (BRIDION) IV ONE (08:55)
[2022-06-23] MEDS ORDERED: DOCU-143 PO (08:57)
[2022-06-23] MEDS ORDERED: ACHD5005 PO (08:57)
--- NOTE | 2022-06-23 08:59 | Discharge Inst-Simple/Standard ---
Discharge Inst-Standard Discharge Medications New, Converted or Re-Newed RX: Transmitted to Pharmacy Patient Instructions/Follow Up Plan of Care/Instructions/FU: 2 weeks Star Activity as Tolerated: No Discharge Diet: Regular Diet Other Inst to Patient Follow up Appt: Make appointment for 2 week. Instructions: No lifting greater than 10 pounds. No strenuous activity. May shower in 24 hours, no tub bath or soaking. Use incentive spirometer at home as directed. No Smoking Skin/Wound Care: You have special glue over your incision that will fall off on it's own. Symptoms to Report: Appetite Changes, Extremity Discoloration, Numbness/Tingling, Swelling Increased, Bleeding Excessive, Eyesight Changes, Pain Increased, Urine Color Change, Constipation(Persistent), Fever over 101 degree F, Pain/Pressure in chest, Urinating Difficulty, Cough Up/Vomit Blood, Heart Beat Irreg/Pounding, Pain/Pressure in jaw, Vaginal Bleeding Increase, Cramps in feet or legs, Lightheadedness, Pain/Pressure in shoulder, Diarrhea(Persistent), Memory Changes Suddenly, Questions/Concerns, Weight gain consecutive days, Dizziness/Fainting, Nausea/Vomiting, Shortness of Breath, Weight gain over 2 pounds If questions or concerns contact your physician Or seek help at emergency department. MIGUEL ANGEL JOAQUIN DO Jun 23, 2022 08:59
--- NOTE | 2022-06-23 09:02 | Progress Note-Post Operative ---
Post-Operative Progess Note Surgeon (s)/Nailing Machine Operator Automatic (s) Surgeon MIGUEL ANGEL JOAQUIN DO Nailing Machine Operator Automatic: Dr. Pacheco to assist in retraction dissection and closure. Pre-Operative Diagnosis incisional hernia Post-Operative Diagnosis incarcerated incisional hernia Procedure & Operative Findings Date of Procedure 06/23/22 Procedure Performed/Findings PROCEDURE: Laparoscopic incarcerated incisional hernia repair with mesh. COMPLICATIONS: None. INDICATIONS: The patient is a 61, female with an incisional hernia, which has continued to increase in size and cause discomfort. The patient was explained the risk and benefits of the procedure and wished to proceed with the procedure. Consent was signed on the chart. DESCRIPTION OF PROCEDURE: The patient was taken into the operating suite, prepped and draped in sterile fashion. Surgical pause was performed. Local anesthetic was infiltrated in left upper quadrant. A 15 blade scalpel was used to make a small skin incision. Cautery was used to dissect down to the fascia, which was then scored and divided the muscle, went through the posterior sheath and a balloon trocar was inserted into the abdomen. The abdomen was then insufflated. Incarcerated fat and small bowel up through defect. A 5 mm trocar was placed in the right lower quadrant and a 5 mm trocar was placed in left lower quadrant. Adhesions were taken down using Ligasure and hernia contents dissected free and reduced. Echo Ventralight mesh was then inserted in the abdomen grabbed through the stab incision. The balloon was inflated on the mesh. Circumferential tacks were placed with a SecureStrap Tacker. The balloon was then removed and inner crown was created as well. The mesh was tacked with pressure being decreased. The 12 mm fascial defect was then closed using 0 Vicryl. The abdomen was then desufflated,the trocars were removed. The skin was then closed using 4-0 Monocryl in a running subcuticular fashion. The abdomen was washed and dried and Skin Affix was placed over the incisions. The patient tolerated procedure well without any complications. She was taken to recovery room in stable condition. Anesthesia Type general Estimated Blood Loss Estimated blood loss (mL): min Specimens/Packing Specimens Removed MIGUEL ANGEL Martinez DO Jun 23, 2022 09:02
[2022-06-23] MEDS ORDERED: ONDANSETRON 4 MG/2 ML (SDV) Z0FRAN IVP PRN (09:15)
[2022-06-23] MEDS ORDERED: MEPERIDINE (DEMEROL) INJ 50 MG/ML IVP ONE (09:15)
[2022-06-23] MEDS ORDERED: morphine INJ 10 MG/ML 1ML (SYR OR VIAL) IVP ONE (09:15)
[2022-06-23] MEDS ORDERED: fentaNYL INJ 100 MCG/2 ML AMP IVP ONE (09:15)
--- NOTE | 2022-06-23 09:15 | Anesthesia-General Post-Op ---
General Patient Condition Mental Status/LOC: Same as Preop Cardiovascular: Satisfactory Nausea/Vomiting: Absent Respiratory: Satisfactory Pain: Controlled Complications: Absent Post Op Complications Complications None Follow Up Care/Instructions Patient Instructions None needed. Anesthesia/Patient Condition Patient Condition Patient is doing well, no complaints, stable vital signs, no apparent adverse anesthesia problems. No complications reported per nursing. PAVITHRA LEVY CRNA Jun 23, 2022 09:15
== END 2022-06-23 11:15 | disposition home or self-care (01) ==
LOC: SDC 05:51
PROVIDERS: ATTEND Surgery
DX: K43.0 Incisional hernia with obstruction, without gangrene (principal)
CPT/HCPCS: 49655; 87081; C1781

== ENCOUNTER 2022-11-23 11:43 | Outpatient (CLI) | payer MEDICAID ==
[~2022-11-23] VITALS: Ht 157.5 cm; Wt 59.4 kg
[~2022-11-23 11:43] MED LIST changes: +DOCU-143 PO
[2022-11-23] MEDS ORDERED: GBPN600T PO (14:43)
== END 2022-11-23 14:48 | disposition home or self-care (01) ==
LOC: PREOP 11:43
PROVIDERS: ATTEND Surgery
DX: Z01.818 Encounter for other preprocedural examination (principal)

== ENCOUNTER 2022-11-30 13:25 | Day surgery (SDC) | payer MEDICAID ==
--- NOTE | 2022-11-24 08:06 | HISTORY AND PHYSICAL ---
DATE OF SERVICE: 11/30/2022 ATTENDING PRIMARY CARE PHYSICIAN: Dr. Justino Ervin. INDICATIONS: The patient is a 62-year-old female known to us. She presents with several different issues. She is in need of a screening colonoscopy for she has never had one before. She has had a history of constipation; however, in the past year she states that she has had softer stools. She also does report some intermittent episodes of mucus with her stools; however, no blood. She also reports that she has had intermittent episodes of nausea and vomiting. She states that after eating a meal usually 1-2 hours afterwards she would feel nausea and have vomiting. She states that this was initially very infrequent; however, has become more frequent in recent months. She also has had some abdominal pain in the mid left lateral abdomen. Upon palpation, there appears to be an outpouching consistent with recurrent ventral abdominal incisional hernia, which appears to be incarcerated. She is otherwise tolerating diet and having normal bowel movements. PAST MEDICAL HISTORY: Coronary artery disease, hypertension, hypercholesterolemia, peripheral vascular disease, degenerative joint disease, history of pneumonia, COPD, history of myocardial infarction 07/2018, psoriasis. PAST SURGERIES: Coronary artery bypass grafting x4 vessels 07/2018, total hysterectomy, right mastoid bone excision. ALLERGIES: NO KNOWN DRUG ALLERGIES. MEDICATIONS: Metoprolol 50 mg daily, lisinopril daily, Prilosec 20 mg daily, gabapentin 800 mg q.i.d., atorvastatin 20 mg daily. SOCIAL HISTORY: Positive smoke, 45-pack years, negative alcohol. FAMILY HISTORY: Noncontributory. VITAL SIGNS: Blood pressure 138/70, current weight 131.5 pounds at 5 feet 2 inches. REVIEW OF SYSTEMS: A well-nourished female, currently in no acute distress. She is not experiencing any shortness of breath or difficulty breathing. No chest pain, palpitations or diaphoresis. Intermittent episodes of nausea and vomiting usually after eating meals, which was initially infrequent; however, has become more frequent and severe in nature. No hematemesis, no coffee-ground emesis. History of constipation; however, has had looser stools in the past year, also mixed with mucus. No blood per rectum. Abdominal pain with palpation, likely consistent with a recurrent ventral abdominal incisional hernia. No fever, chills, no recent inadvertent weight loss. All other review of systems negative. PHYSICAL EXAMINATION: CHEST: Scattered wheezes and rhonchi bilaterally. HEART: Regular. No murmurs. EXTREMITIES: No lower extremity edema. Negative Homans sign. HEENT: No scleral icterus. No cervical lymphadenopathy. ABDOMEN: Soft. There is pain in the mid left lateral abdomen with an outpouching which is tender to palpation and nonreducible. No fever, chills, no recent inadvertent weight loss. SKIN: Warm, dry. ASSESSMENT AND PLAN: A 62-year-old female in need of a screening colonoscopy with also change in bowel habits as well as gastroesophageal reflux disease and nausea and vomiting and for this, we will proceed with scheduling her for an EGD and colonoscopy. She also has abdominal pain as well as an outpouching which may resemble an incarcerated recurrent left lateral abdomen, ventral abdominal incisional hernia. She also has nausea and vomiting after eating meals, which is worsened and has become more frequent and worsening in severity, which may indicate cholelithiasis versus biliary dyskinesia and we will schedule her for the gallbladder ultrasound and if no stones identified, then proceed with a HIDA scan for potential biliary dyskinesia. Once this test was performed and depending on what the results are, we will then proceed with a diagnostic laparoscopy and possible laparoscopic cholecystectomy as well as recurrent ventral abdominal incisional hernia repair with mesh. Job ID: [id number] DocumentID: [id number] Dictated Date: 11/22/2022 15:18:06 Compliance Analyst Date: 11/22/2022 17:16:00 Dictated By: DELTA BETH MD
[~2022-11-30] VITALS: Ht 157.5 cm; Wt 59.4 kg
[~2022-11-30 13:25] MED LIST changes: +GBPN600T PO
[2022-11-30] MEDS ORDERED: LACTATED RINGERS 1,000 ML IV STA (13:35)
[2022-11-30 13:45] VITALS: BP 149/77
[2022-11-30] MEDS ORDERED: HURRICAINE EXT TUBE (BENZOCAINE) XX PRN (13:45)
--- NOTE | 2022-11-30 13:57 | Progress Note-Pre Operative ---
Pre-Operative Progress Note Date of Available H&P: Nov 30, 2022 Date H&P Reviewed: Nov 30, 2022 Time H&P Reviewed: 13:30 History & Physical: No changes noted Pre-Operative Diagnosis: GERD, screening colo DELTA BETH MD Nov 30, 2022 13:57
[2022-11-30] MEDS ORDERED: PANT40TA2 PO (13:58)
--- NOTE | 2022-11-30 13:58 | Discharge Inst-Surgical ---
D/C Lap Instructions-KIDO New, Converted, or Re-Newed RX: RX on Chart Follow Up Activity as tolerated High Fiber Diet 25g or more per day Avoid Alcohol, Caffeine, Spicy Stephens and Acid foods. Drink 64 fluid oz or more of fluids per day. Symptoms to Report: Fever over 101 degree F, Nausea/Vomiting If any problems/questions: Contact your physician or go to Emergency Room DELTA BETH MD Nov 30, 2022 13:58
[2022-11-30] MEDS ORDERED: ONDANSETRON 4 MG/2 ML (SDV) Z0FRAN IVP PRN (14:00)
[2022-11-30] MEDS ORDERED: ONDANSETRON 4 MG (ZOFRAN) ORAL DISSOLVE TAB PO PRN (14:00)
[2022-11-30] MEDS ORDERED: LIDOCAINE JELLY 2% 6 ML SYRINGE TOP ONE (16:00)
[2022-11-30] MEDS ORDERED: PROPOFOL INJECTION 50 ML IV ONE (16:05)
[2022-11-30] MEDS ORDERED: LIDOCAINE JELLY 2% 6 ML SYRINGE ONE (16:06)
--- NOTE | 2022-11-30 16:46 | Anesthesia-General Post-Op ---
MAC Patient Condition Mental Status/LOC: Same as Preop Cardiovascular: Satisfactory Nausea/Vomiting: Absent Respiratory: Satisfactory Pain: Controlled Complications: Absent Post Op Complications Complications None Follow Up Care/Instructions Patient Instructions None needed. Anesthesiology Discharge Order Discharge Order Patient is doing well, no complaints, stable vital signs, no apparent adverse anesthesia problems. No complications reported per nursing. JOESPH VERA CRNA Nov 30, 2022 16:46
[2022-11-30 16:48] VITALS: BP 98/62
[2022-11-30 16:55] VITALS: BP 130/74
--- NOTE | 2022-11-30 17:07 | Progress Note-Post Operative ---
Post-Operative Progess Note Surgeon (s)/Casting Machine Service Operator (s) Surgeon DELTA BETH MD Casting Machine Service Operator: none Pre-Operative Diagnosis GERD, screening colo Post-Operative Diagnosis reflux esophagitis(grade B), mild dist esoph stricture, smal HH(2cm), moderate gastritis. chronic stage 2 ext and int hemorrhoids, mild sigmoid diverticulosis. Procedure & Operative Findings Date of Procedure 11/30/22 Procedure Performed/Findings EGD with bx and balloon dilatation. colonoscopy. Anesthesia Type mac Estimated Blood Loss Estimated blood loss (mL): minimal Specimens/Packing Specimens Removed ge jxn, antrum DELTA BETH MD Nov 30, 2022 17:07
[2022-11-30 17:15] VITALS: BP 130/74
[2022-11-30 17:25] VITALS: BP 130/74
--- NOTE | 2022-12-01 00:57 | OPERATIVE REPORT ---
DATE OF SERVICE: 11/30/2022 ATTENDING PRIMARY CARE PHYSICIAN: Dr. Justino Ervin. PREOPERATIVE DIAGNOSIS: Gastroesophageal reflux disease. POSTOPERATIVE DIAGNOSES: Reflux esophagitis, Essex grade B with a mild distal esophageal stricture, small hiatal hernia approximately 2 cm in size, moderate gastritis, mild sigmoid diverticulosis, chronic stage II external and internal hemorrhoids. PROCEDURE: EGD with biopsy and balloon dilatation. Colonoscopy. SURGEON: Delta Beth MD ANESTHESIA: Monitored anesthesia care. ESTIMATED BLOOD LOSS: Minimal. FINDINGS: Same as postoperative diagnoses. DISPOSITION: The patient tolerated the procedure well. INDICATIONS: The patient is a 62-year-old female known to us. She has had several different issues in the past. She reports that she has had a longstanding history of gastroesophageal reflux disease; however, this has worsened over time with epigastric burning sensation as well as crampy pain. She is also in need of a screening colonoscopy. Her last one was approximately 10 years ago. She does report constipation. She does not report any red blood per rectum, nor any dark tarry stools as well as no family history of colon cancer. DESCRIPTION OF PROCEDURE: The patient was brought to the endoscopy suite and laid in the left lateral decubitus position. After adequate IV pain and sedative medications and monitored anesthesia care, the mouthpiece was applied. The endoscope was placed in the mouth, visualizing the pharynx and hypopharyngeal region. Vocal cords, epiglottis and vallecula identified and appeared to be normal. The endoscope was then gently intubated in the esophageal opening and esophagus insufflated. The endoscope was then advanced into the first, second and third portions of esophagus; at the level of the GE junction, a reflux esophagitis, Essex grade B identified. There was also mild distal esophageal stricture. A biopsy was taken with forceps with visualization of good hemostasis. The endoscope was then advanced into the stomach and then the endoscope retroflexed visualizing a small hiatal hernia approximately 2 cm in size. There was a moderate severity gastritis. No formal ulcerations, polyps or any neoplasms. A biopsy was taken of the antrum to rule out H. pylori with visualization of good hemostasis. The endoscope was then advanced to the pylorus and the first and second portion of the duodenum, which appeared normal with no distal obstructions. The endoscope was then slowly withdrawn while taking a second look and suctioning of residual air with no additional findings. The balloon was then placed in the stomach and pulled back to the area of the stricture. We then proceeded with a graded dilatation from 2, 4, then eventually 5 atmospheres of pressure with moderate resistance or approximately 19.5 mm in luminal diameter and left this in place for approximately 60 seconds. The balloon was then removed with visualization of good hemostasis as well as no mucosal tears. A digital rectal examination was performed, which revealed chronic stage II, external and internal hemorrhoids, not actively edematous nor inflamed and no bleeding. Normal sphincter tone was felt and there were no palpable masses. The endoscope was then intubated into the anus, rectum gently insufflated. The endoscope was then advanced through the valves of Meredith of the rectum with no polyps or any neoplasms identified. Through the sigmoid colon, a mild sigmoid diverticulosis identified. The endoscope was then advanced through the remainder of the descending, transverse and ascending colon to the cecum, which were normal. No other lesions identified. The endoscope was then slowly withdrawn while taking a second look and suctioning of residual air with no additional findings. The patient tolerated the procedure well. We will recommend the necessary lifestyle and dietary accommodation including smoking cessation as well as avoidance of caffeinated beverages, spicy, greasy and acidic foods. She also needs to take in small and more frequent meals, avoidance of eating at night as well as head elevation while lying supine. We will also recommend that she continue to take her omeprazole 20 mg daily; however, we will also add Protonix 40 mg to be taken at a different time during the day. She also needs to proceed with a high-fiber diet with addition of a fiber supplement, which equals or exceeds 25 grams daily as well as significant amounts of water to promote soft consistency stools on a daily basis. We will also proceed with our current workup of gallbladder etiology with ultrasound as well as a possible HIDA scan. She will also need to proceed with a high-fiber diet. Job ID: [id number] DocumentID: [id number] Dictated Date: 11/30/2022 17:03:51 Principal Java Developer Date: 12/01/2022 00:55:00 Dictated By: DELTA BETH MD
== END 2022-11-30 17:25 | disposition home or self-care (01) ==
LOC: ENDO 13:25
PROVIDERS: ATTEND Surgery
DX: Z12.11 Encounter for screening for malignant neoplasm of colon (principal); K21.00 Gastro-esophageal reflux disease with esophagitis, without bleeding; K22.2 Esophageal obstruction; K29.50 Unspecified chronic gastritis without bleeding; K44.9 Diaphragmatic hernia without obstruction or gangrene; K57.30 Diverticulosis of large intestine without perforation or abscess without bleeding; K64.4 Residual hemorrhoidal skin tags; K64.1 Second degree hemorrhoids; J44.9 Chronic obstructive pulmonary disease, unspecified; F17.210 Nicotine dependence, cigarettes, uncomplicated; Z99.81 Dependence on supplemental oxygen

== ENCOUNTER → 2022-12-12 | Outpatient (CLI) | payer MEDICAID ==
[~2022-12-12] MED LIST changes: +CATHETER FLUSH 10 ML SYR IVP PRN; +PANT40TA2 PO
--- NOTE | 2022-12-12 09:13 | Diagnostic Imaging Report ---
CLINICAL INDICATIONS: Patient with right upper quadrant pain, nausea and vomiting. EXAM: CT scan of abdomen and pelvis dated 10/14/2020. COMPARISON: CT scan of the abdomen and pelvis without contrast dated 10/14/2020. Pancreas has normal echogenicity and configuration as visualized. Visualized portions of abdominal aorta and IVC are unremarkable as visualized. Liver measures 17.1 cm. The liver has normal echogenicity and echotexture. The liver surface is smooth. The main portal vein demonstrates hepatopetal flow. There is no intrahepatic or extrahepatic ductal dilation. The common bile duct measures 6 mm which is upper limits of normal. The gallbladder is contracted with small amount of fluid within it. Gallbladder wall measures 2 mm. There is no stones or sludge seen. There is no sonographic Mcghee sign. Patient states having nothing by mouth starting before midnight. There is no hydronephrosis or mass. Right kidney measures 9.6 cm in craniocaudal dimension. There is no abdominal ascites. IMPRESSION: 1.: There is no ultrasound evidence of acute abdominal or pelvic process. 2: The gallbladder is predominantly contracted with no stones or sludge seen. There is no ultrasound evidence of cholecystitis. 3: The remainder of this exam shows no other significant abnormality. Dictated by: Dictated on workstation # [id number]
--- NOTE | 2022-12-12 11:20 | Diagnostic Imaging Report ---
INDICATION: Right upper quadrant pain. FINDINGS: The patient was administered 5.42 mCi of Tc 99m Choletec and sequential imaging was performed over the right upper abdomen. There is progressive, homogeneous accumulation of radiotracer within the liver parenchyma. There is filling of the bile ducts and subsequent filling of the gallbladder. There is progressive clearance of activity from the liver parenchyma and accumulation of radiotracer within loops of small bowel. The patient was then administered a fatty meal, utilizing 8 ounces of Ensure. The gallbladder ejection fraction was calculated to be approximately 86.7%. (Normal values post fatty meal stimulation are 33% or greater.) IMPRESSION: 1. Hepatobiliary scan demonstrates a patent biliary tree. 2. Normal gallbladder ejection fraction of approximately 86.7%. Dictated by: Dictated on workstation # [id number]
== END ==
LOC: RAD 08:00
PROVIDERS: ATTEND Surgery
DX: K82.0 Obstruction of gallbladder (principal)
CPT/HCPCS: 76705; 78227; A9537

== ENCOUNTER 2022-12-18 10:02 | Emergency (ER) | payer MEDICAID ==
[~2022-12-18] VITALS: Ht 157.5 cm; Wt 58.9 kg
[~2022-12-18 10:02] MED LIST changes: -CATHETER FLUSH 10 ML SYR IVP PRN
[2022-12-18 10:31] LABS: BASOPHILS # (AUTO) 0.2 10^3/uL (0.0-0.1); BASOPHILS % (AUTO) 2 % (0-10); EOSINOPHILS # (AUTO) 0.8 10^3/uL (0.0-0.3); EOSINOPHILS % (AUTO) 7 % (0-10); HEMATOCRIT 42 % (35-52); HEMOGLOBIN 13.8 g/dL (11.5-16.0); LYMPHOCYTES # (AUTO) 3.6 10^3/uL (1.0-4.0); LYMPHOCYTES % (AUTO) 29 % (12-44); MEAN CORPUSCULAR HEMOGLOBIN 31 pg (25-34); MEAN CORPUSCULAR HGB CONC 33 g/dL (32-36); MEAN CORPUSCULAR VOLUME 94 fL (80-99); MEAN PLATELET VOLUME 9.7 fL (9.0-12.2); MONOCYTES # (AUTO) 0.5 10^3/uL (0.0-1.0); MONOCYTES % (AUTO) 4 % (0-12); NEUTROPHILS # (AUTO) 7.1 10^3/uL (1.8-7.8); NEUTROPHILS % (AUTO) 58 % (42-75); PLATELET COUNT 458 10^3/uL (130-400); WHITE BLOOD COUNT 12.2 10^3/uL (4.3-11.0)
[2022-12-18 10:35] LABS: ALBUMIN 4.5 GM/DL (3.2-4.5); POTASSIUM 4.4 MMOL/L (3.6-5.0)
[2022-12-18 10:36] LABS: CALCIUM 10.3 MG/DL (8.5-10.1)
[2022-12-18 10:38] LABS: TOTAL PROTEIN 8.2 GM/DL (6.4-8.2)
[2022-12-18 10:39] LABS: BILIRUBIN,TOTAL 0.6 MG/DL (0.1-1.0)
[2022-12-18 10:41] LABS: CREATININE SERUM 0.84 MG/DL (0.60-1.30)
--- NOTE | 2022-12-18 10:44 | ED General ---
General Chief Complaint: Respiratory Problems Stated Complaint: SOA Nursing Triage Note: PT AMB TO RM 6 WITH COMPLAINT OF SOA X 2 WEEKS. STATES HAS WORSENED OVER THE LAST FEW DAYS. Source of Information: Patient, Old Records Exam Limitations: No Limitations History of Present Illness Date Seen by Provider: December 18, 2022 Time Seen by Provider: 10:15 Initial Comments This 62-year-old woman presents to the emergency room with complaints of cough and shortness of breath. She denies fever. She uses 2 inhalers as well as a nebulizer. She used 1 nebulizer treatment today before coming to the ER. She reports 1 prior episode of left-sided chest pain a few days ago, but no chest pain at this time. She reports a diffuse red rash on her skin which is not appreciated during exam. She has frequent vomiting, but this is a chronic problem and unchanged. She does have history of COPD and coronary artery disease status post CABG. She is not in distress at this time. Review of her chart notes a history of echocardiogram April of last year with ejection fraction of 50 to 55% and moderate tricuspid regurgitation. She had a stress test in May that was negative for ischemia with an EF of 75%. Her primary care provider is Dr. Buck. Her weight control engineer is Dr. Mckenzie. Her surgeon is Dr. Joseph. Allergies and Home Medications Allergies Coded Allergies: No Known Drug Allergies (Unverified , 06/20/22) Patient Home Medication List Home Medication List Reviewed: Yes Aspirin (Aspirin) 81 Mg Tab.chew, 81 MG PO DAILY, (Reported) Entered as Reported by: ERIKA RESENDIZ on 06/20/22 1259 Atorvastatin Calcium (Atorvastatin Calcium) 80 Mg Tablet, 80 MG PO HS, (Reported) Entered as Reported by: ERIKA RESENDIZ on 06/20/22 1259 Cetirizine HCl (Cetirizine HCl) 10 Mg Tablet, 10 MG PO UD, (Reported) Entered as Reported by: ERIKA RESENDIZ on 06/20/22 1259 Gabapentin (Gabapentin) 600 Mg Tablet, 600 MG PO DAILY, (Reported) Entered as Reported by: JENNY JACKSON on 11/23/22 1443 Lisinopril (Lisinopril) 5 Mg Tablet, 5 MG PO DAILY, (Reported) Entered as Reported by: ERIKA RESENDIZ on 06/20/22 1259 Metoprolol Succinate (Metoprolol Succinate) 25 Mg Tab.er.24h, 25 MG PO DAILY, (Reported) Entered as Reported by: ERIKA RESENDIZ on 06/20/22 1259 Pantoprazole Sodium (Protonix) 40 Mg Tablet.dr, 40 MG PO DAILY Prescribed by: DELTA JOSEPH on 11/30/22 1358 Prednisone (Prednisone) 20 Mg Tab, 40 MG PO DAILY Prescribed by: ORQUIDEA DE LEON on 12/18/22 1231 Review of Systems Review of Systems Constitutional: no symptoms reported EENTM: no symptoms reported Respiratory: see HPI Cardiovascular: see HPI Gastrointestinal: see HPI Genitourinary: no symptoms reported : No Musculoskeletal: no symptoms reported Skin: no symptoms reported Psychiatric/Neurological: No Symptoms Reported Hematologic/Lymphatic: No Symptoms Reported Immunological/Allergic: no symptoms reported Past Mbkiugc-Cvuaep-Prrewf Hx Patient Social History Tobacco Use?: Yes Tobacco type used: Cigarettes Smoking Status: Former Smoker Use of E-Cig and/or Vaping dev: No Substance use?: Yes Substance type: Marijuana Alcohol Use?: No Pt feels they are or have been: No Immunizations Up To Date Tetanus Booster (TDap): Unknown PED Vaccines UTD: Yes First/Initial COVID19 Vaccinat: 10/2020 Second COVID19 Vaccination Loco: 11/2020 Third COVID19 Vaccination Date: 12/2020 Seasonal Allergies Seasonal Allergies: No Past Medical History Surgery/Hospitalization HX: This patient states that she has had quadruple bypass surgery in 2018, as well as 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 Genitourinary: No Gastrointestinal: Yes (INCISIONAL) Gastroesophageal Reflux, Diverticulosis, Hemorrhoids, Hiatal Hernia (With gastritis) Musculoskeletal: Yes (PSORIATIC ARTHRITIS; SCIATICA) Degenerate Disk Disease, Arthritis, Chronic Back Pain Endocrine: No HEENT: Yes (EDENTULOUS, R mastoid bone removed R/T BRAIN INFECTION OCTOBER 2019) Cancer: No Psychosocial: Yes Anxiety, Depression Integumentary: Yes (POST OP WOUND INFECTION TO LEGS POST CABG) Psoriasis Blood Disorders: Yes (POST OP ANEMIA 07/2018--4 UNITS OF BLOOD POST OP) Adverse Reaction/Blood Tranf: No Family Medical History Diabetes, Hypertension NC Physical Exam Vital Signs Vital Signs - First Documented 12/18/22 10:06 Temp 36.9 Pulse 80 Resp 20 B/P (MAP) 152/76 (101) Pulse Ox 94 O2 Delivery Room Air Capillary Refill : Less Than 3 Seconds Height, Weight, BMI Height: 5'1.00" Weight: 114lbs. 6.0oz. 51.341727ev; 23.00 BMI Method:Stated General Appearance: No Apparent Distress, WD/WN HEENT: PERRL/EOMI, Normal ENT Inspection Neck: Normal Inspection; No JVD Respiratory: No Accessory Muscle Use, No Respiratory Distress, Rhonci, Wheezing Cardiovascular: Regular Rate, Rhythm, No Edema, No Murmur Gastrointestinal: Non Tender, Soft; No Distended Extremity: Normal Inspection, Non Tender, No Pedal Edema Neurologic/Psychiatric: Alert, Oriented x3, No Motor/Sensory Deficits, Normal Mood/Affect, superintendent radio communications II-XII Norm as Tested Skin: Normal Color, Warm/Dry Procedures/Interventions Date of ETT Placement: Oct 17, 2018 Time of ETT Placement: 1441 Progress/Results/Core Measures Suspected Sepsis SIRS Temperature: Pulse: 80 Respiratory Rate: 20 Laboratory Tests 12/18/22 10:09: White Blood Count 12.2H Blood Pressure 152 /76 Mean: 101 Laboratory Tests 12/18/22 10:09: Creatinine 0.84, Platelet Count 458H, Total Bilirubin 0.6 Results/Orders Lab Results Laboratory Tests Test 12/18/22 10:09 12/18/22 10:28 Range/Units White Blood Count 12.2 H 4.3-11.0 10^3/uL Red Blood Count 4.49 3.80-5.11 10^6/uL Hemoglobin 13.8 11.5-16.0 g/dL Hematocrit 42 35-52 % Mean Corpuscular Volume 94 80-99 fL Mean Corpuscular Hemoglobin 31 25-34 pg Mean Corpuscular Hemoglobin Concent 33 32-36 g/dL Red Cell Distribution Width 12.8 10.0-14.5 % Platelet Count 458 H 130-400 10^3/uL Mean Platelet Volume 9.7 9.0-12.2 fL Immature Granulocyte % (Auto) 0 % Neutrophils (%) (Auto) 58 42-75 % Lymphocytes (%) (Auto) 29 12-44 % Monocytes (%) (Auto) 4 0-12 % Eosinophils (%) (Auto) 7 0-10 % Basophils (%) (Auto) 2 0-10 % Neutrophils # (Auto) 7.1 1.8-7.8 10^3/uL Lymphocytes # (Auto) 3.6 1.0-4.0 10^3/uL Monocytes # (Auto) 0.5 0.0-1.0 10^3/uL Eosinophils # (Auto) 0.8 H 0.0-0.3 10^3/uL Basophils # (Auto) 0.2 H 0.0-0.1 10^3/uL Immature Granulocyte # (Auto) 0.0 0.0-0.1 10^3/uL D-Dimer 0.29 0.00-0.49 UG/ML Sodium Level 135 135-145 MMOL/L Potassium Level 4.4 3.6-5.0 MMOL/L Chloride Level 101 98-107 MMOL/L Carbon Dioxide Level 18 L 21-32 MMOL/L Anion Gap 16 H 5-14 MMOL/L Blood Urea Nitrogen 17 7-18 MG/DL Creatinine 0.84 0.60-1.30 MG/DL Estimat Glomerular Filtration Rate 79 BUN/Creatinine Ratio 20 Glucose Level 158 H 70-105 MG/DL Calcium Level 10.3 H 8.5-10.1 MG/DL Corrected Calcium 9.9 8.5-10.1 MG/DL Total Bilirubin 0.6 0.1-1.0 MG/DL Aspartate Amino Transf (AST/SGOT) 20 5-34 U/L Alanine Aminotransferase (ALT/SGPT) 13 0-55 U/L Alkaline Phosphatase 29 L 40-136 U/L Troponin I < 0.028 <0.028 NG/ML C-Reactive Protein High Sensitivity 0.84 H 0.00-0.50 MG/DL B-Type Natriuretic Peptide 89.7 <100.0 PG/ML Total Protein 8.2 6.4-8.2 GM/DL Albumin 4.5 3.2-4.5 GM/DL Influenza Type A (RT-PCR) Not Detected Not Detecte Influenza Type B (RT-PCR) Not Detected Not Detecte SARS-CoV-2 RNA (RT-PCR) Not Detected Not Detecte My Orders Orders - ORQUIDEA WATTERS MD Ekg Tracing (12/18/22 10:10) Bnp Carlee (12/18/22 10:16) Cbc With Automated Diff (12/18/22 10:16) Comprehensive Metabolic Panel (12/18/22 10:16) Hs C Reactive Protein (12/18/22 10:16) Ed Iv/Invasive Line Start (12/18/22 10:16) Covid 19 Inhouse Test (12/18/22 10:16) Influenza A And B By Pcr (12/18/22 10:16) Chest Pa/Lat (2 View) (12/18/22 11:03) Fibrin Degradation Products (12/18/22 11:49) Troponin I Carlee (12/18/22 11:49) Methylprednisolone Sod Succ (Solu-Medrol (12/18/22 12:30) Medications Given in ED Current Medications Medications Dose Ordered Sig/Lance Route Start Time Stop Time Status Last Admin Dose Admin Methylprednisolone Sodium Succinate 125 mg ONCE ONCE IVP 12/18/22 12:30 12/18/22 12:31 DC 12/18/22 12:35 125 MG Vital Signs/I&O 12/18/22 12/18/22 10:06 12:41 Temp 36.9 Pulse 80 81 Resp 20 16 B/P (MAP) 152/76 (101) 117/55 Pulse Ox 94 96 O2 Delivery Room Air Room Air Capillary Refill : Less Than 3 Seconds Blood Pressure Mean: 101 Progress Note : Progress Note Labs were obtained and reviewed in their entirety. They were interpreted by me. CBC was remarkable for slight of the elevation in WBC. CMP was relatively unremarkable. CRP, D-dimer, troponin, and BNP were all normal. Chest x-ray demonstrated no acute changes. Patient was treated with Solu-Medrol for acute C OPD exacerbation. ECG interpreted by me demonstrated no ischemic changes. Patient was feeling better without additional interventions prior to discharge. See discharge instructions for further discussion and prescriptions. ECG Initial ECG Impression Date: December 18, 2022 Initial ECG Impression Time: 10:17 Initial ECG Rate: 70 Initial ECG Rhythm: Normal Sinus Comment Sinus rhythm with no ischemic ST elevation or depression. No abnormal intervals or axis deviation. Few PVCs noted. Diagnostic Imaging Diagonstic Imaging: Xray Plain Films/CT/US/NM/MRI: chest Comments NAME: ETELVINA ALONSO [facility] REC#: [id number] PT STATUS: DEP ER : 1960 PHYSICIAN: ORQUIDEA WATTERS MD ADMIT DATE: 12/18/22/ER Signed Date of Exam:12/18/22 CHEST PA/LAT (2 VIEW) INDICATION: Cough, shortness of air COMPARISON: 05/13/2021 and 02/02/2021. TECHNIQUE: 2 radiographs of the chest dated 12/18/2022. FINDINGS: Postsurgical changes of median sternotomy. The cardiac silhouette is within normal limits in size. No significant pulmonary vascular congestion. Chronic scarring within the right lung base. The lungs are hyperinflated with flattening of the diaphragm. The lungs are clear of focal pulmonary opacity. No pleural effusion. No pneumothorax. Mild scattered osseous degenerative changes without acute osseous abnormality. IMPRESSION: Stable background pulmonary hyperinflation with persistent right basilar scarring. No superimposed acute cardiopulmonary abnormality with additional postsurgical and chronic findings as above. Dictated by: Dictated on workstation # [id number] Dict: 12/18/22 1117 Trans: 12/18/221802 CVB [id number] Interpreted by: JASMINA GARCIA MD Electronically signed by: JASMINA GARCIA MD 12/18/221802 Departure Impression Primary Impression: COPD exacerbation Additional Impression: Chronic nausea Disposition: 01 HOME, SELF-CARE Condition: Improved Departure-Patient Inst. Decision time for Depature: 12:29 Referrals: KATHI BUCK DO (PCP/Family) Primary Care Physician Patient Instructions: Chronic Obstructive Pulmonary Disease (COPD), Including Emphysema, Quitting Smoking Add. Discharge Instructions: Continue taking your scheduled inhalers as previously prescribed. Use your nebulizer treatments as prescribed for increased shortness of breath and wheezing. Continue working on quitting smoking. Seek help from your primary care provider if needed. Start your prednisone steroid prescription tomorrow. Use Zofran and/or your prescribed promethazine (Phenergan) as directed for nausea and vomiting. Please be sure to take your antacid medication (Protonix) while you are on steroids. Drink plenty of water to stay well-hydrated. Follow-up with your primary care provider later this week. Return to the ER if you have worsening symptoms despite following these instructions. All discharge instructions reviewed with patient and/or family. Voiced understanding. Scripts Prednisone (Prednisone) 20 Mg Tab 40 MG PO DAILY, #6 TAB 0 Refills Prov: ORQUIDEA WATTERS MD 12/18/22 Copy Copies To 1: KATHI BUCK JOSHUA T MD December 18, 2022 10:44
--- NOTE | 2022-12-18 11:20 | Diagnostic Imaging Report ---
INDICATION: Cough, shortness of air COMPARISON: 05/13/2021 and 02/02/2021. TECHNIQUE: 2 radiographs of the chest dated 12/18/2022. FINDINGS: Postsurgical changes of median sternotomy. The cardiac silhouette is within normal limits in size. No significant pulmonary vascular congestion. Chronic scarring within the right lung base. The lungs are hyperinflated with flattening of the diaphragm. The lungs are clear of focal pulmonary opacity. No pleural effusion. No pneumothorax. Mild scattered osseous degenerative changes without acute osseous abnormality. IMPRESSION: Stable background pulmonary hyperinflation with persistent right basilar scarring. No superimposed acute cardiopulmonary abnormality with additional postsurgical and chronic findings as above. Dictated by: Dictated on workstation # [id number]
[2022-12-18] MEDS ORDERED: methylPREDNISolone 125 MG (Solu-MEDROL) VIAL IVP ONE (12:30)
[2022-12-18] MEDS ORDERED: PRD20T PO (12:31)
[2022-12-18 12:41] VITALS: BP 117/55
== END 2022-12-18 12:41 | disposition home or self-care (01) ==
LOC: EDUNIT# 10:02 → ER 10:04
DX: J44.1 Chronic obstructive pulmonary disease with (acute) exacerbation (principal); R11.0 Nausea; Z87.891 Personal history of nicotine dependence; Z20.822 Contact with and (suspected) exposure to COVID-19
CPT/HCPCS: 36415; 71046; 80053; 83880; 84484; 85025; 85379; 86141; 87636; 93005

== ENCOUNTER 2023-04-28 21:28 | Inpatient (IN) | payer MEDICAID ==
[~2023-04-28] VITALS: Ht 154.9 cm; Wt 70.7 kg
[~2023-04-28 21:28] MED LIST changes: +POTA-330 PO; -POTA-51 PO
--- NOTE | 2023-04-28 21:41 | ED Chest Pain ---
General Chief Complaint: Chest Pain Stated Complaint: CHEST PAIN Source: patient Exam Limitations: no limitations History of Present Illness Date Seen by Provider: Apr 28, 2023 Time Seen by Provider: 21:26 Initial Comments 62-year-old female presents the emergency department today for chest pain. Minutes prior to arrival in her neck and radiated down into her anterior chest. It feels like a "rock sitting on my chest." It is similar to the pain she had in 2018 when she had a heart attack and subsequent bypass surgery. She states this pain is more intense. She was hypotensive during transport, initial blood pressures reported in the 70s systolic. She was given 324 mg of aspirin during transport All other systems reviewed and negative except documented per HPI. Voice recognition software was used to help create this chart Allergies and Home Medications Allergies Coded Allergies: No Known Drug Allergies (Unverified , 06/20/22) Patient Home Medication List Home Medication List Reviewed: Yes Aspirin (Aspirin) 81 Mg Tab.chew, 81 MG PO DAILY, (Reported) Entered as Reported by: ERIKA RESENDIZ on 06/20/22 1259 Atorvastatin Calcium (Atorvastatin Calcium) 80 Mg Tablet, 80 MG PO HS, ( Reported) Entered as Reported by: ERIKA RESENDIZ on 06/20/22 1259 Cetirizine HCl (Cetirizine HCl) 10 Mg Tablet, 10 MG PO UD, (Reported) Entered as Reported by: ERIKA RESENDIZ on 06/20/22 1259 Gabapentin (Gabapentin) 600 Mg Tablet, 600 MG PO DAILY, (Reported) Entered as Reported by: JENNY JACKSON on 11/23/22 1443 Lisinopril (Lisinopril) 5 Mg Tablet, 5 MG PO DAILY, (Reported) Entered as Reported by: ERIKA RESENDIZ on 06/20/22 1259 Metoprolol Succinate (Metoprolol Succinate) 25 Mg Tab.er.24h, 25 MG PO DAILY, (Reported) Entered as Reported by: ERIKA RESENDIZ on 06/20/22 1259 Pantoprazole Sodium (Protonix) 40 Mg Tablet.dr, 40 MG PO DAILY Prescribed by: DELTA BETH on 11/30/22 1358 Prednisone (Prednisone) 20 Mg Tab, 40 MG PO DAILY Prescribed by: ORQUIDEA DE LEON on 12/18/22 1231 Review of Systems Review of Systems Constitutional: see HPI Past Flpythp-Ywztzb-Yiknpm Hx Patient Social History Tobacco Use?: Yes Tobacco type used: Cigarettes Substance use?: No Alcohol Use?: No Immunizations Up To Date Tetanus Booster (TDap): Unknown PED Vaccines UTD: Yes First/Initial COVID19 Vaccinat: 10/2020 Second COVID19 Vaccination Loco: 11/2020 Third COVID19 Vaccination Date: 12/2020 Seasonal Allergies Seasonal Allergies: No Past Medical History Surgery/Hospitalization HX: This patient states that she has had quadruple bypass surgery in 2018, as well as 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 History: Hysterectomy Genitourinary: No Gastrointestinal: Yes (INCISIONAL) Gastroesophageal Reflux, Diverticulosis, Hemorrhoids, Hiatal Hernia Musculoskeletal: Yes (PSORIATIC ARTHRITIS; SCIATICA) Degenerate Disk Disease, Arthritis, Chronic Back Pain Endocrine: No HEENT: Yes (EDENTULOUS, R mastoid bone removed R/T BRAIN INFECTION OCTOBER 2019) Cancer: No Psychosocial: Yes Anxiety, Depression Integumentary: Yes (POST OP WOUND INFECTION TO LEGS POST CABG) Psoriasis Blood Disorders: Yes (POST OP ANEMIA 07/2018--4 UNITS OF BLOOD POST OP) Adverse Reaction/Blood Tranf: No Family Medical History Diabetes, Hypertension NC Physical Exam Vital Signs Vital Signs - First Documented 04/28/23 04/28/23 04/28/23 04/28/23 11:55 11:58 21:32 21:42 Pulse 80 Resp 20 B/P (MAP) 108/58 (75) Pulse Ox 92 O2 Delivery Room Air O2 Flow Rate 2.00 Capillary Refill : Height, Weight, BMI Height: 5'1.00" Weight: 114lbs. 6.0oz. 51.193532ct; 23.00 BMI Method:Stated General Appearance: No Apparent Distress, WD/WN HEENT: Normal ENT Inspection, Pharynx Normal Neck: Full Range of Motion, Normal Inspection, Supple Respiratory: Chest Non Tender, Lungs Clear, Normal Breath Sounds, No Accessory Muscle Use, No Respiratory Distress Cardiovascular: Regular Rate, Rhythm, No Murmur, Other (Weak peripheral pulses, hypotension) Gastrointestinal: Normal Bowel Sounds, Soft Extremity: Normal Capillary Refill Neurologic/Psychiatric: Alert, Oriented x3, No Motor/Sensory Deficits Skin: Normal Color, Warm/Dry Procedures/Interventions Date of ETT Placement: Oct 17, 2018 Time of ETT Placement: 1441 Critical Care Note Critical Care Total Time (minutes) 45 Progress/Results/Core Measures Results/Orders Lab Results Laboratory Tests Test 04/28/23 21:35 04/28/23 22:00 Range/Units Prothrombin Time 15.9 H 12.2-14.7 SEC INR Comment 1.3 0.8-1.4 Activated Partial Thromboplast Time 35 24-35 SEC White Blood Count 19.1 H 4.3-11.0 10^3/uL Red Blood Count 3.93 3.80-5.11 10^6/uL Hemoglobin 12.2 # 11.5-16.0 g/dL Hematocrit 37 35-52 % Mean Corpuscular Volume 95 80-99 fL Mean Corpuscular Hemoglobin 31 25-34 pg Mean Corpuscular Hemoglobin Concent 33 32-36 g/dL Red Cell Distribution Width 12.3 10.0-14.5 % Platelet Count 351 130-400 10^3/uL Mean Platelet Volume 9.4 9.0-12.2 fL Immature Granulocyte % (Auto) 1 % Neutrophils (%) (Auto) 55 42-75 % Lymphocytes (%) (Auto) 31 12-44 % Monocytes (%) (Auto) 7 0-12 % Eosinophils (%) (Auto) 6 0-10 % Basophils (%) (Auto) 1 0-10 % Neutrophils # (Auto) 10.4 H 1.8-7.8 10^3/uL Lymphocytes # (Auto) 5.9 H 1.0-4.0 10^3/uL Monocytes # (Auto) 1.4 H 0.0-1.0 10^3/uL Eosinophils # (Auto) 1.2 H 0.0-0.3 10^3/uL Basophils # (Auto) 0.2 H 0.0-0.1 10^3/uL Immature Granulocyte # (Auto) 0.1 0.0-0.1 10^3/uL Neutrophils % (Manual) 56 % Lymphocytes % (Manual) 31 % Monocytes % (Manual) 5 % Eosinophils % (Manual) 8 % Blood Morphology Comment NORMAL My Orders Orders - KEVIN BEEBE DO Chest 1 View, Ap/Pa Only (04/28/23 21:41) Protime With Inr (04/28/23 21:41) Partial Thromboplastin Time (04/28/23 21:41) Ed Iv/Invasive Line Start (04/28/23 21:41) Heparin (Bolus Per Protocol) (Heparin (B (04/28/23 21:45) Ns Iv 1000 Ml (Ns Iv 1000 Ml) (04/28/23 21:45) Type And Screen (04/28/23 21:58) Cbc With Automated Diff (04/28/23 22:00) Manual Differential (04/28/23 22:00) Vital Signs/I&O 04/28/23 04/28/23 04/28/23 04/28/23 11:55 11:58 21:32 21:42 Pulse 80 53 Resp 20 B/P (MAP) 108/58 (75) 91/41 (58) Pulse Ox 92 O2 Delivery Room Air Nasal Cannula O2 Flow Rate 2.00 EKG : Comment Sinus bradycardia rate of 54 bpm. Normal intervals. Normal axis. ST elevations in V2 V3 and V4, hyperacute ST segments in V5 positive for STEMI. Departure Communication (Admissions) Patient is EKG positive for STEMI. Call Dr. Charles at [phone]. He is on his way and. Patient's blood pressure has improved to 95/47 with IV fluids. She is slightly bradycardic at 54 bpm. She is alert and oriented. We will go ahead and bolus with heparin. Impression Primary Impression: STEMI (ST elevation myocardial infarction) Qualified Codes: I21.3 - ST elevation (STEMI) myocardial infarction of unspecified site Disposition: ADMITTED INPATIENT Condition: Stable Admissions Decision to Admit Reason: Admit from ER (General) Departure-Patient Inst. Referrals: KATHI BUCK DO (PCP/Family) Primary Care Physician KEVIN BEEBE DO Apr 28, 2023 21:41
[2023-04-28] MEDS ORDERED: HEParin 1000 UNIT/ML (10ML VIAL) FOR BOLUS IV SCH (21:45)
[2023-04-28] MEDS ORDERED: NS IV 1000 ML 1,000 ML IV SCH (21:45)
[2023-04-28 21:52] LABS: INR 1.3 (0.8-1.4); PROTHROMBIN TIME PATIENT 15.9 SEC (12.2-14.7)
[2023-04-28] MEDS ORDERED: LIDOCAINE 1% INJ 20 ML VIAL ONE (22:05)
[2023-04-28] MEDS ORDERED: NS IV 1000 ML 1,000 ML ONE (22:05)
[2023-04-28] MEDS ORDERED: HEParin (CATH LAB) 2,000 ML IV ONE (22:05)
--- NOTE | 2023-04-28 22:07 | Diagnostic Imaging Report ---
EXAMINATION: Chest 1 view HISTORY: Chest pain. COMPARISON: 12/16/2020. 12/18/2022. FINDINGS: The lung volumes are normal. No focal consolidation is seen. No large pleural effusion or pneumothorax is seen. The cardiomediastinal silhouette is stable with post-CABG changes. There is calcified aortic atherosclerotic plaque. No acute osseous abnormality is seen. IMPRESSION: 1. No acute pleuroparenchymal process. Dictated by: Dictated on workstation # [id number]
[2023-04-28] MEDS ORDERED: HEParin 1000 UNIT/ML (10ML VIAL) FOR BOLUS ONE (22:08)
[2023-04-28] MEDS ORDERED: fentaNYL INJECTION 100 MCG/2 ML VIAL ONE (22:08)
[2023-04-28] MEDS ORDERED: NITRO DRIP 25000 MCG/D5W 0 ML IV ONE (22:08)
[2023-04-28] MEDS ORDERED: MIDAZOLAM INJ 5 MG/5 ML VIAL ONE (22:08)
[2023-04-28 22:10] LABS: BASOPHILS # (AUTO) 0.2 10^3/uL (0.0-0.1); BASOPHILS % (AUTO) 1 % (0-10); EOSINOPHILS # (AUTO) 1.2 10^3/uL (0.0-0.3); EOSINOPHILS % (AUTO) 6 % (0-10); HEMATOCRIT 37 % (35-52); HEMOGLOBIN 12.2 g/dL (11.5-16.0); LYMPHOCYTES # (AUTO) 5.9 10^3/uL (1.0-4.0); LYMPHOCYTES % (AUTO) 31 % (12-44); MEAN CORPUSCULAR HEMOGLOBIN 31 pg (25-34); MEAN CORPUSCULAR HGB CONC 33 g/dL (32-36); MEAN CORPUSCULAR VOLUME 95 fL (80-99); MEAN PLATELET VOLUME 9.4 fL (9.0-12.2); MONOCYTES # (AUTO) 1.4 10^3/uL (0.0-1.0); MONOCYTES % (AUTO) 7 % (0-12); NEUTROPHILS # (AUTO) 10.4 10^3/uL (1.8-7.8); NEUTROPHILS % (AUTO) 55 % (42-75); PLATELET COUNT 351 10^3/uL (130-400); WHITE BLOOD COUNT 19.1 10^3/uL (4.3-11.0)
[2023-04-28] MEDS ORDERED: VERAPAMIL 5 MG/2 ML (CALAN) VIAL IV ONE (22:56)
[2023-04-28 23:08] LABS: EOSINOPHILS % (MANUAL) 8 %; LYMPHOCYTES % (MANUAL) 31 %; MONOCYTES % (MANUAL) 5 %; NEUTROPHILS % (MANUAL) 56 %; RBC MORPH NORMAL
[2023-04-28 23:27] LABS: ALBUMIN 3.3 GM/DL (3.2-4.5); CHLORIDE 98 MMOL/L (98-107); POTASSIUM 4.1 MMOL/L (3.6-5.0); SODIUM 133 MMOL/L (135-145)
[2023-04-28 23:29] LABS: CALCIUM 7.9 MG/DL (8.5-10.1)
[2023-04-28 23:30] LABS: GLUCOSE 140 MG/DL (70-105); TOTAL PROTEIN 5.8 GM/DL (6.4-8.2)
[2023-04-28 23:31] LABS: CARBON DIOXIDE 25 MMOL/L (21-32)
[2023-04-28 23:32] LABS: BILIRUBIN,TOTAL 0.2 MG/DL (0.1-1.0)
[2023-04-28 23:33] LABS: ALKALINE PHOSPHATASE 28 U/L (40-136); CREATININE SERUM 0.83 MG/DL (0.60-1.30); GFR ESTIMATED 80
[2023-04-28 23:34] LABS: BUN/CREATININE RATIO 11
[2023-04-28 23:36] LABS: ALANINE AMINOTRANSFERASE 8 U/L (0-55); MAGNESIUM 1.8 MG/DL (1.6-2.4)
[2023-04-28] MEDS ORDERED: FUROSEMIDE INJECTION 40 MG/4 ML VIAL ONE (23:37)
[2023-04-28] MEDS ORDERED: PATIENT MAY USE OWN MEDS, ALL PO SCH (23:45)
--- NOTE | 2023-04-28 23:57 | Consultation-Cardiology ---
HPI-Cardiology Cardiology Consultation: Date of Consultation 04/28/23 Date of Admission Attending Physician Justino Ervin DO Admitting Physician Admitting Physician: Attending Physician: Benigno Charles MD Consulting Physician BENIGNO CHARLES MD HPI: Time Seen by a Provider: 23:51 62-year-old female with a history of CAD status post four-vessel CABG in 2018, COPD, current tobacco abuse, hypertension, hyperlipidemia, hiatal hernia who presents for evaluation of chest discomfort. History is obtained from patient's . states that patient has been quite fatigued and coughing intermittently. He notes that she has simply wanted to sleep all day. He denies that she has reported any fevers or chills. They were resting this evening and she experienced acute onset neck/jaw discomfort with radiation of discomfort into her bilateral arms and into her chest. checked her blood pressures using a cuff and stated that it was 79/55. In that setting he became concerned and brought her in for evaluation. Urgency room, EKG was obtained. Patient noted that the pain she was experiencing was similar to what she experienced when she had a heart attack back in 2018. EKG demonstrated ST elevations in V3 V4 and a code STEMI was called. Personal review of the EKG demonstrates ST elevations in V3 4 without reciprocal changes less concerning for STEMI. We did take the patient to the Animal Care Attendant. She was found to have an atretic saphenous vein graft to the distal RCA with patent saphenous vein graft to OM1 and OM 2 as well as a patent SCOTT to LAD. No intervention was performed. STEMI was aborted. Patient is now being transferred to the floor for further care. She will be cared for by the hospitalist service. Review of Systems-Cardiology All Other Systems Reviewed Negative Unless Noted: Yes (All systems were reviewed and are negative except for what is been described in HPI) LOE-Fhznlm-Sfellr Hx Patient Social History 2nd Hand Smoke Exposure: Yes Alcohol Use?: No Tobacco type used: Cigarettes Immunizations Up To Date Tetanus Booster (TDap): Unknown Date of Pneumonia Vaccine: Jul 17, 2017 Date of Influenza Vaccine: Jun 03, 2022 Past Medical History PMH As described under Assessment. Family Medical History Family Medical History: Reviewed and is noncontributory. Social history: Tobacco: 0.5 to 1 pack/day for the past 45 years Allergies and Home Medications Allergies Coded Allergies: No Known Drug Allergies (Unverified , 11/7/22) Patient Home Medication List Home Medication List Reviewed: Yes Aspirin (Aspirin) 81 Mg Tab.chew, 81 MG PO DAILY, (Reported) Entered as Reported by: ERIKA RESENDIZ on 06/20/22 1259 Atorvastatin Calcium (Atorvastatin Calcium) 80 Mg Tablet, 80 MG PO HS, (Reported) Entered as Reported by: ERIKA RESENDIZ on 06/20/22 1259 Cetirizine HCl (Cetirizine HCl) 10 Mg Tablet, 10 MG PO UD, (Reported) Entered as Reported by: ERIKA RESENDIZ on 06/20/22 1259 Gabapentin (Gabapentin) 600 Mg Tablet, 600 MG PO DAILY, (Reported) Entered as Reported by: JENNY JACKSON on 11/23/22 1443 Lisinopril (Lisinopril) 5 Mg Tablet, 5 MG PO DAILY, (Reported) Entered as Reported by: ERIKA RESENDIZ on 06/20/22 1259 Metoprolol Succinate (Metoprolol Succinate) 25 Mg Tab.er.24h, 25 MG PO DAILY, (Reported) Entered as Reported by: ERIKA RESENDIZ on 06/20/22 1259 Pantoprazole Sodium (Protonix) 40 Mg Tablet.dr, 40 MG PO DAILY Prescribed by: DELTA BETH on 11/30/22 1358 Prednisone (Prednisone) 20 Mg Tab, 40 MG PO DAILY Prescribed by: ORQUIDEA DE LEON on 12/18/22 1231 Exam Vital Signs Vital Signs Date Time Temp Pulse Resp B/P (MAP) Pulse Ox O2 Delivery O2 Flow Rate FiO2 04/28/23 22:15 55 110/54 94 Nasal Cannula 2.00 04/28/23 21:32 20 Physical Exam Gen: NAD, resting comfortably Neck: No bruits, no JVD Lungs: Diminished breath sounds in the bilateral lung toney with diffuse rhonchi. No rales or wheezing noted CV: nl s1/s2; no g-r; regular rate and rhythm Abd: + BS, soft NT,ND no hepatospleno May Ext: 2+ radial and DP pulses; no c-c-e, wwp Labs Laboratory Tests Test 04/28/23 21:35 04/28/23 22:00 04/28/23 23:10 Range/Units Prothrombin Time 15.9 H 12.2-14.7 SEC INR Comment 1.3 0.8-1.4 Activated Partial Thromboplast Time 35 24-35 SEC White Blood Count 19.1 H 4.3-11.0 10^3/uL Red Blood Count 3.93 3.80-5.11 10^6/uL Hemoglobin 12.2 # 11.5-16.0 g/dL Hematocrit 37 35-52 % Mean Corpuscular Volume 95 80-99 fL Mean Corpuscular Hemoglobin 31 25-34 pg Mean Corpuscular Hemoglobin Concent 33 32-36 g/dL Red Cell Distribution Width 12.3 10.0-14.5 % Platelet Count 351 130-400 10^3/uL Mean Platelet Volume 9.4 9.0-12.2 fL Immature Granulocyte % (Auto) 1 % Neutrophils (%) (Auto) 55 42-75 % Lymphocytes (%) (Auto) 31 12-44 % Monocytes (%) (Auto) 7 0-12 % Eosinophils (%) (Auto) 6 0-10 % Basophils (%) (Auto) 1 0-10 % Neutrophils # (Auto) 10.4 H 1.8-7.8 10^3/uL Lymphocytes # (Auto) 5.9 H 1.0-4.0 10^3/uL Monocytes # (Auto) 1.4 H 0.0-1.0 10^3/uL Eosinophils # (Auto) 1.2 H 0.0-0.3 10^3/uL Basophils # (Auto) 0.2 H 0.0-0.1 10^3/uL Immature Granulocyte # (Auto) 0.1 0.0-0.1 10^3/uL Neutrophils % (Manual) 56 % Lymphocytes % (Manual) 31 % Monocytes % (Manual) 5 % Eosinophils % (Manual) 8 % Blood Morphology Comment NORMAL Sodium Level 133 L 135-145 MMOL/L Potassium Level 4.1 3.6-5.0 MMOL/L Chloride Level 98 98-107 MMOL/L Carbon Dioxide Level 25 21-32 MMOL/L Anion Gap 10 5-14 MMOL/L Blood Urea Nitrogen 9 7-18 MG/DL Creatinine 0.83 0.60-1.30 MG/DL Estimat Glomerular Filtration Rate 80 BUN/Creatinine Ratio 11 Glucose Level 140 H 70-105 MG/DL Calcium Level 7.9 L 8.5-10.1 MG/DL Corrected Calcium 8.5 8.5-10.1 MG/DL Magnesium Level 1.8 1.6-2.4 MG/DL Total Bilirubin 0.2 0.1-1.0 MG/DL Aspartate Amino Transf (AST/SGOT) 13 5-34 U/L Alanine Aminotransferase (ALT/SGPT) 8 0-55 U/L Alkaline Phosphatase 28 L 40-136 U/L Troponin I < 0.028 <0.028 NG/ML Total Protein 5.8 L 6.4-8.2 GM/DL Albumin 3.3 3.2-4.5 GM/DL ECG Impression ECG Comment Personal read of EKG demonstrates normal sinus rhythm, ST elevations in V3 V4 questionable early repole, no reciprocal ST-T changes are noted. A/P-Cardiology Assessment/Admission Diagnosis 62-year-old female with a history of CAD status post four-vessel CABG in 2018, COPD, current tobacco abuse, hypertension, hyperlipidemia, hiatal hernia who presents for evaluation of chest discomfort. ##Aborted STEMI: Cardiac cath demonstrated atretic saphenous vein graft to distal right coronary artery with patent SCOTT to LAD, saphenous vein graft to OM1 and OM 2. No intervenable targets noted. Patient will restart her cardiotonic regimen which includes aspirin, statin, Toprol, lisinopril. We will check an A1c and a fasting lipid panel. Patient received Lasix 40 mg IV x1 in the Animal Care Attendant for mild to moderately elevated left-sided cardiac filling pressures with an LVEDP of approximately 21 mmHg. ##Shortness of breath chest discomfort: Check COVID; troponin in a.m. ##Disposition: Cardiology will continue to follow along. BENIGNO CHARLES MD Apr 28, 2023 23:57
[2023-04-29] MEDS: NS IV 1000 ML 1,000 ML IV SCH ×4 (01:41→20:00)
--- NOTE | 2023-04-29 01:52 | Tele-ICU Consult ---
Progress Note 62 yo F history of CABG admitted for new onset chest pain, STEMI. Patient already evaluated by Business Objects Architect, status post CCL. Admit to ICU for observation on heparin gtt. Patient not in distress, VS reviewed, Tolerating few liters NC. Vein grafts patent per cath, no intervention. Medical management, diuresis planned. Diagnosis: STEMI, CAD with hx CABG, HL, COPD, HTN Reported to be current smoker CXR reviewed without acute finding. Negative sepsis screen. Leukocytosis nonspecific, presumed reactive. Orders rec'd UA pending A total of _ 15_ minutes of critical care time was devoted to this patient, including reviewing this patient's available data, including medical history, events of note and test results. This was required to treat and/or prevent further deterioration of critical care conditions ( as above ). Service provided to a patient admitted to ICU bed via interactive E-CARE system with real-time audio and video telecommunications from [facility]- ICU hub located in [place], [place] ROLSYN TOLENTINO MD Apr 29, 2023 01:52
[2023-04-29 03:10] LABS: BASOPHILS # (AUTO) 0.1 10^3/uL (0.0-0.1); BASOPHILS % (AUTO) 1 % (0-10); EOSINOPHILS # (AUTO) 0.7 10^3/uL (0.0-0.3); EOSINOPHILS % (AUTO) 4 % (0-10); HEMATOCRIT 37 % (35-52); HEMOGLOBIN 12.3 g/dL (11.5-16.0); LYMPHOCYTES # (AUTO) 4.1 10^3/uL (1.0-4.0); LYMPHOCYTES % (AUTO) 25 % (12-44); MEAN CORPUSCULAR HEMOGLOBIN 31 pg (25-34); MEAN CORPUSCULAR HGB CONC 33 g/dL (32-36); MEAN CORPUSCULAR VOLUME 93 fL (80-99); MEAN PLATELET VOLUME 9.6 fL (9.0-12.2); MONOCYTES # (AUTO) 0.9 10^3/uL (0.0-1.0); MONOCYTES % (AUTO) 5 % (0-12); NEUTROPHILS # (AUTO) 10.3 10^3/uL (1.8-7.8); NEUTROPHILS % (AUTO) 63 % (42-75); PLATELET COUNT 353 10^3/uL (130-400); WHITE BLOOD COUNT 16.2 10^3/uL (4.3-11.0)
[2023-04-29 03:24] LABS: EOSINOPHILS % (MANUAL) 5 %; LYMPHOCYTES % (MANUAL) 24 %; MONOCYTES % (MANUAL) 6 %; NEUTROPHILS % (MANUAL) 65 %; RBC MORPH NORMAL
[2023-04-29] MEDS ORDERED: NS IV 500 ML 500 ML ONE (03:27)
[2023-04-29 03:28] LABS: ALBUMIN 3.4 GM/DL (3.2-4.5); BILIRUBIN,TOTAL 0.3 MG/DL (0.1-1.0); CALCIUM 8.3 MG/DL (8.5-10.1); CREATININE SERUM 0.8 MG/DL (0.60-1.30); MAGNESIUM 1.9 MG/DL (1.6-2.4); PHOSPHORUS 5.3 MG/DL (2.3-4.7); POTASSIUM 4.2 MMOL/L (3.6-5.0); TOTAL PROTEIN 5.9 GM/DL (6.4-8.2)
[2023-04-29] MEDS ORDERED: NS IV ONE (03:30)
[2023-04-29] MEDS ORDERED: NOREPINEPHRINE 8 MG/250 ML 250 ML IV PRN (03:30)
[2023-04-29] MEDS ORDERED: NS IV 500 ML 500 ML IV ONE (04:00)
[2023-04-29] MEDS ORDERED: NS IV 500 ML 500 ML IV PRN (05:30)
[2023-04-29] MEDS ORDERED: MAGNESIUM 2 GM/50 ML IVPB 50 ML IV ONE ×2 (05:30→09:15)
[2023-04-29] MEDS: MAGNESIUM 1 GM/100 ML IVPB 100 ML IV SCH ×3 (05:39→08:32)
[2023-04-29] MEDS: POTASSIUM CL 10MEQ/50ML IVPB 50 ML IV SCH (05:39)
[2023-04-29] MEDS: POTASSIUM CHLORIDE 20 MEQ TABLET PO SCH (05:39)
[2023-04-29] MEDS: PANTOPRAZOLE 40 MG TABLET PO SCH (06:07)
[2023-04-29] MEDS: ASPIRIN enteric coated 81MG TABLET PO SCH (08:33)
--- NOTE | 2023-04-29 10:28 | Cardiology Progress Note ---
Subjective Date Seen by Provider: Apr 29, 2023 Time Seen by Provider: 09:30 Subjective/Events-last exam No acute issues. Patient reports that her chest discomfort has resolved. Still continues to be quite fatigued. Notes significant shortness of breath as well. Objective-Cardiology Exam Last Set of Vital Signs Vital Signs 04/29/23 04/29/23 08:00 09:00 Temp 36.4 Pulse 56 Resp 20 B/P (MAP) 119/69 (91) Pulse Ox 92 O2 Delivery Nasal Cannula O2 Flow Rate 2.00 Other physical findings Gen: NAD, resting comfortably Neck: No bruits, no JVD Lungs: Diminished breath sounds in the bilateral lung toney. Diffuse rhonchi noted. No wheezing or rales. CV: nl s1/s2; no murmurs gallops or rubs appreciated, regular rate and rhythm. Abd: + BS, soft NT,ND, no hepatosplenomegaly Ext: 2+ radial and DP pulses; no c-c-e, wwp Results Lab Laboratory Tests 04/28/23 22:00 04/28/23 23:10 04/29/23 02:51 A/P-Cardiology Assessment/Plan 62-year-old female with a history of CAD status post four-vessel CABG in 2018, COPD, current tobacco abuse, hypertension, hyperlipidemia, hiatal hernia who presents for evaluation of chest discomfort, sob and fatigue. ##Aborted STEMI: Cardiac cath demonstrated atretic saphenous vein graft to distal right coronary artery with patent SCOTT to LAD and patent saphenous vein graft to OM1 and OM 2. No intervenable targets noted. Continue cardiotonic regimen which includes aspirin, statin, Toprol, lisinopril. a1c pending. f/u Tn this AM 0.02 to 0.998; f/u Tn to ybarra AM. F/u TTE- images obtained ## NSTEMI: Tn now 0.998; no intervenable targets noted on cath. cont ASA, statin, lisinopril and Toprol. If Tn continues to climb, consider addition of plavix. TTE pending. notes BPs were down to 70s systolic yesterday when he checked- not sure for how long- any concomitant infection? ## Relative hypotension: BPs in low 80-90s, improved iwth IVF to 110s. cont to monitor. relative bradycardia also noted, hold Toprol for HR < 60. ## Dyspnea: lung exam c/w COPD exacerbation. pt reports cough and sob - progressively worsening. Will start on COPD regimen. COVID test sent- pending results ## HLD: LDL 87, TC 134, TG 192, HDL 34; increase atorvastatin to 80; target LDL < 55. ##Disposition: Cardiology will continue to follow along. Hospitalist to manage. SPENCER BLACKMAN MD Apr 29, 2023 10:28
--- NOTE | 2023-04-29 10:38 | Cardiac Cath Report ---
CARDIAC CATHETERIZATION DATE OF PROCEDURE: [April 28, 2023] INDICATION: Aborted STEMI. HISTORY: 62-year-old female with a history of CAD status post four-vessel CABG in 2018, COPD, current tobacco abuse, hypertension, hyperlipidemia, hiatal hernia who presents for evaluation of chest discomfort/sob/fatigue. History is obtained from patient's . states that patient has been quite fatigued and coughing intermittently. He notes that she has simply wanted to sleep all day. He denies that she has reported any fevers or chills. They were resting this evening and she experienced acute onset neck/jaw discomfort with radiation of discomfort into her bilateral arms and into her chest. checked her blood pressures using a cuff and stated that it was 79/55. In that setting, he became concerned. EMS was called and she was brought in for evaluation. In the Emergency room, EKG was obtained. EKG demonstrated ST elevations in V3 V4 and a code STEMI was called. PROCEDURES PERFORMED: 1. Right common femoral artery access with ultrasound guidance and micropuncture 2. Selective coronary angiography. 3. Graft angiography. 4. Vessel closure with minx device PROCEDURE DESCRIPTION: The patient was brought to the Cardiac Catheterization Laboratory in a fasting state. The details of the procedure were discussed with the patient, including risks and benefits. The patient understood and gave informed consent. The patient was prepped and draped in the normal sterile fashion. The Right groin was anesthetized with local lidocaine. Using the modified Seldinger technique and ultrasound, a 4Fr micropuncture kit was used to access the Right common femoral artery. A 6Fr sheath was placed in the RFA and selective coronary angiography was performed in multiple projections using 5 fr JL4 and JR4 catheters. Graft angiography was performed using an LCB diagnostic catheter, JR4 catheter and IM catheter. We were unable to access the left subclavian artery via the femoral approach. As such, we introduced a 6 [place] slender sheath into the left radial artery. We were then able to cannulate the SCOTT graft using an IM catheter. The Right femoral arterial sheath was removed and Mynx vascular closure device was applied. The radial artery sheath was removed and the radial band was applied. The patient tolerated the procedure well. RESULTS: LVEDP ~ 21mmhg. CORONARY ANGIOGRAPHY: Left main coronary artery: Left main is a large size vessel with minimal luminal irregularities. It gives rise to the left circumflex flex and left anterior descending territories. Left anterior descending coronary artery: The LAD is a moderate size vessel that reaches the apex. The LAD is moderate to severely diffusely diseased throughout its entire course. There is a 70 to 80% lesion calcified, in the proximal vessel. The SCOTT graft touches down on the midportion of the vessel. Left circumflex coronary artery: The left circumflex artery is severely diffusely diseased with serial 70 to 90% lesions coursing throughout the vessel. The vessel appears to give rise to 2 OM vessels. OM 1 appears to be occluded at the proximal portion. OM 2 appears to be occluded at the proximal portion, as well. Right coronary artery: Occluded in the proximal segment. SCOTT to LAD graft: Patent. The SCOTT is a small caliber graft that touches down on the midsegment of the LAD with reasonable runoff to just above the apex. The LAD is a small size vessel with a 40% lesion just distal to the anastomotic site. Sequential saphenous vein graft to OM1 and OM2; Patent with good runoff into large caliber vessels. Saphenous vein graft to RPDA: Atretic graft PERCUTANEOUS CORONARY INTERVENTION: []. IMPRESSION: 1. Mild to moderately elevated left-sided ventricular filling pressures with an LVEDP of 21 mmHg. 2. Patent SCOTT to LAD graft. 3. Patent sequential saphenous vein graft to OM1 and OM2. 4. Atretic saphenous vein graft to RPDA Plan: 1. No intervenable lesions noted. 2. Optimize cardiac regimen. 3. Look for other causes of hypotension, chest discomfort and shortness of breathCOVID, COPD exacerbation, hospitalist consult placed SPENCER BLACKMAN MD Apr 29, 2023 10:38
[2023-04-29] MEDS: methylPREDNISolone INJ 40 MG/ML VIAL IV SCH ×3 (10:48→21:43)
--- NOTE | 2023-04-29 11:22 | History & Physical-Hospitalist ---
History of Present Illness HPI/Chief Complaint 62-year-old female with a history of CAD status post four-vessel CABG in 2018, COPD, current tobacco abuse, hypertension, hyperlipidemia, hiatal hernia who presents for evaluation of chest discomfort. History is obtained from patient's . states that patient has been quite fatigued and coughing intermittently. He notes that she has simply wanted to sleep all day. He denies that she has reported any fevers or chills. They were resting this evening and she experienced acute onset neck/jaw discomfort with radiation of discomfort into her bilateral arms and into her chest. checked her bloo d pressures using a cuff and stated that it was 79/55. In that setting he became concerned and brought her in for evaluation. Urgency room, EKG was obtained. Patient noted that the pain she was experiencing was similar to what she experienced when she had a heart attack back in 2018. EKG demonstrated ST elevations in V3 V4 and a code STEMI was called. Personal review of the EKG demonstrates ST elevations in V3 4 without reciprocal changes less concerning for STEMI. We did take the patient to the Clinical Informatics Educator. She was found to have an atretic saphenous vein graft to the distal RCA with patent saphenous vein graft to OM1 and OM 2 as well as a patent SCOTT to LAD. No intervention was performed. STEMI was aborted. Patient is now being transferred to the floor for further care. She will be cared for by the hospitalist service. Upon my arrival the patient was little somnolent but easily arousable she is a poor historian does not recall being confused does remember that she was having chest discomfort radiating to the neck and the left arm but reports no chest pain this morning. She denies abdominal pain dysuria increasing urinary frequency reporting baseline smoker's cough minimal sputum production no blood or purulent sputum noted denied chills fever or night sweats. Date Seen 04/29/23 Time Seen by a Provider: 09:00 Attending Physician Justino Ervin DO PCP Admitting Physician: Benigno Charles MD Attending Physician: Benigno Charles MD Referring Physician Date of Admission Apr 28, 2023 at 23:56 Home Medications & Allergies Home Medications Reviewed patient Home Medication Reconciliation performed by pharmacy medication reconciliations service desk technician and/or nursing. Patients Allergies have been reviewed. Allergies Allergies Coded Allergies No Known Drug Allergies ([id number]/7/22) Past Xzkqehy-Eztmtp-Hjdorm Hx Patient Social History Tobacco Use?: Yes Tobacco type used: Cigarettes Smoking Status: Current Everyday Smoker Smokeless Tobacco Frequency: Never a User Use of E-Cig and/or Vaping dev: No Substance use?: No Alcohol Use?: No Pt feels they are or have been: No Immunizations Up To Date Date of Influenza Vaccine: Jun 03, 2022 First/Initial COVID19 Vaccinat: 10/2020 Second COVID19 Vaccination Loco: 11/2020 Tetanus Booster (TDap): Unknown PED Vaccines UTD: Yes Date of Pneumonia Vaccine: Jul 17, 2017 Seasonal Allergies Seasonal Allergies: No Current Status Advance Directives: No Communicates: Verbally Primary Language: Jordanian Preferred Spoken Language: Jordanian Is interpretation needed?: No Sensory deficits: Vision impairment Implanted or Applied Medical D: Stents Past Medical History Surgeries: Abdominal, Cardiac, CABG, Hysterectomy, Oophorectomy, Open Heart Surgery, Orthopedic, Vascular Surgery Pneumonia, COPD, Emphysema Currently Using CPAP: No Currently Using BIPAP: No Coronary Artery Disease, Heart Attack, High Cholesterol, Hypertension EQUIPMENT TECH History: Hysterectomy Gastroesophageal Reflux, Diverticulosis, Hemorrhoids, Hiatal Hernia Degenerate Disk Disease, Arthritis, Chronic Back Pain Anxiety, Depression Psoriasis Blood Disorders: Yes (POST OP ANEMIA 07/2018--4 UNITS OF BLOOD POST OP) Adverse Reaction/Blood Tranf: No PMHx: Coronary artery disease, s/p CABG 07/2018 Anxiety Chronic pain HTN PNA COPD RLS PSurgHx: CABG Family Medical History Diabetes, Hypertension NC Review of Systems Constitutional: see HPI Physical Exam Physical Exam Vital Signs Vital Signs - First Documented 04/28/23 04/28/23 04/28/23 04/28/23 11:55 11:58 21:32 21:42 Pulse 80 Resp 20 B/P (MAP) 108/58 (75) Pulse Ox 92 O2 Delivery Room Air O2 Flow Rate 2.00 Capillary Refill : Less Than 3 Seconds Height, Weight, BMI Height: 5'1.00" Weight: 114lbs. 6.0oz. 51.331585tn; 28.88 BMI Method:Stated General Appearance: No Apparent Distress, Other (Somewhat somnolent but easily arousable) HEENT: PERRL/EOMI Neck: Full Range of Motion, Non Tender, Supple Respiratory: No Accessory Muscle Use, No Respiratory Distress, Other ( scattered rhonchi throughout no wheezing noted.) Cardiovascular: Regular Rate, Rhythm, No Edema, No Gallop, No JVD, No Murmur Gastrointestinal: Normal Bowel Sounds, No Organomegaly, No Pulsatile Mass, Non Tender, Soft Extremity: Normal Inspection, Normal Range of Motion, Non Tender, No Pedal Edema Results Results/Procedures Labs Laboratory Tests 04/28/23 22:00 04/28/23 23:10 04/29/23 02:51 Patient resulted labs reviewed. Assessment/Plan Admission Diagnosis 1. Acute coronary syndrome with diffuse three-vessel disease not amenable to percutaneous intervention continue current medical management. 2. Leukocytosis with altered mental status both of these issues are improving. No obvious evidence for infection at this point but will obtain influenza and COVID swab considering negative chest x-ray UA and H&P that does not point to any obvious infection sources. 3. Pulmonary examination does suggest underlying COPD raising the possibility of hypercapnia will obtain ABG now. We will repeat CBC in the morning. Admission Status: Inpatient Order (span 2 midnights) Reason for Inpatient Admission: See admission diagnosis CHANDRIKA RAVI MD Apr 29, 2023 11:22
[2023-04-29] MEDS ORDERED: ROPI6TAB2 PO (11:26)
[2023-04-29] MEDS: NICOTINE 14 MG PATCH TD SCH (12:03)
[2023-04-29] MEDS: GABAPENTIN 400 MG CAPSULE PO SCH ×2 (12:04→20:29)
[2023-04-29 13:50] LABS: ABG BASE EXCESS -0.9 MMOL/L (-2.5-2.5); ABG OXYGEN SATURATION 93 % (94-100); ABG PCO2 47 MMHG (35-45); ABG PO2 61 MMHG (79-93); ABG TCO2 25.9 MMOL/L (21.0-31.0)
[2023-04-29 13:53] LABS: ABG PH 7.33 (7.37-7.43); ALLENS TEST YES-POS; INSPIRED O2 2L; PATIENT TEMP 36.2; VENTILATOR NO
[2023-04-29] MEDS ORDERED: HOLD METFORMIN - RECEIVED CONTRAST 20 ML VIAL IV SCH (14:15)
[2023-04-29] MEDS ORDERED: IOHEXOL 350 MG/ML 100 ML (OMNIPAQUE 350) VIAL IV ONE (14:15)
[2023-04-29] MEDS ORDERED: NS 100 ML (IVPB) BAG IV ONE (14:15)
--- NOTE | 2023-04-29 15:02 | Diagnostic Imaging Report ---
HISTORY: Right ventricular failure. Echocardiogram findings concerning for pulmonary embolus. COMPARISON: None. TECHNIQUE: Axial CT of the chest was performed following intravenous administration of contrast timed for angiographic evaluation of the pulmonary arteries, with sagittal, coronal and MIP reformats. All CT scans use one or more of the following dose optimizing techniques: automated exposure control, MA and/or KvP adjustment based on patient size and exam type or iterative reconstruction. FINDINGS: The pulmonary arteries are diagnostic to the proximal segmental level in most of the chest; however, there is motion artifact resulting in suboptimal evaluation. No filling defects are seen to indicate a pulmonary embolus. There is no evidence of right heart strain. There is moderate cardiomegaly. No pericardial effusion is seen. No mediastinal or axillary adenopathy is seen. There are patchy opacities in the right lung base with a somewhat nodular tree-in-bud appearance. Similar findings are seen in the medial left lung base with atelectasis in the anterior left lower lobe. There is no pleural effusion or pneumothorax. No central endobronchial lesion is seen. No acute osseous abnormality is identified. There are degenerative changes in the spine. There is retrograde flow into the IVC. IMPRESSION: 1. No pulmonary embolus identified. No right heart strain. 2. Cardiomegaly with findings of right heart failure. 3. Opacities in the lung bases, right greater than left, may be due to atypical infection or possibly aspiration. Dictated by: Dictated on workstation # [id number]
[2023-04-29 15:10] LABS: BILIRUBIN,URINE NEGATIVE (NEGATIVE); CLARITY,URINE CLEAR; COLOR,URINE YELLOW; GLUCOSE, URINE (UA) NEGATIVE (NEGATIVE); KETONES,URINE NEGATIVE (NEGATIVE); NITRITE,URINE NEGATIVE (NEGATIVE); PROTEIN,URINE NEGATIVE (NEGATIVE)
[2023-04-29] MEDS: RT-Ipratropium/Albuterol NEB 3 ML VIAL INH SCH ×3 (15:10→22:38)
[2023-04-29 15:11] LABS: BACTERIA,URINE NEGATIVE /HPF; LEUKOCYTE ESTERASE ,URINE NEGATIVE (NEGATIVE); SQUAMOUS EPITHELIAL CELL,UR 0-2 /HPF
[2023-04-29] MEDS ORDERED: ACETAMINOPHEN 325 MG TABLET PO ONE (22:30)
[2023-04-29] MEDS ORDERED: TEMAZEPAM 15 MG (RESTORIL) CAP PO ONE (22:30)
[2023-04-30] MEDS: RT-Ipratropium/Albuterol NEB 3 ML VIAL INH SCH ×6 (02:40→21:58)
[2023-04-30] MEDS: methylPREDNISolone INJ 40 MG/ML VIAL IV SCH ×4 (03:54→22:58)
[2023-04-30] MEDS: NS IV 1000 ML 1,000 ML IV SCH ×3 (04:01→15:55)
[2023-04-30 04:45] LABS: BASOPHILS % (AUTO) 0 % (0-10); EOSINOPHILS % (AUTO) 0 % (0-10); HEMATOCRIT 33 % (35-52); HEMOGLOBIN 10.7 g/dL (11.5-16.0); LYMPHOCYTES # (AUTO) 0.9 10^3/uL (1.0-4.0); LYMPHOCYTES % (AUTO) 4 % (12-44); MEAN CORPUSCULAR HEMOGLOBIN 31 pg (25-34); MEAN CORPUSCULAR HGB CONC 33 g/dL (32-36); MEAN CORPUSCULAR VOLUME 95 fL (80-99); MONOCYTES # (AUTO) 0.2 10^3/uL (0.0-1.0); MONOCYTES % (AUTO) 1 % (0-12); NEUTROPHILS # (AUTO) 20.3 10^3/uL (1.8-7.8); NEUTROPHILS % (AUTO) 94 % (42-75); PLATELET COUNT 296 10^3/uL (130-400); WHITE BLOOD COUNT 21.6 10^3/uL (4.3-11.0)
[2023-04-30 05:13] LABS: ALBUMIN 3.6 GM/DL (3.2-4.5); BILIRUBIN,TOTAL 0.2 MG/DL (0.1-1.0); CALCIUM 8.6 MG/DL (8.5-10.1); CREATININE SERUM 0.84 MG/DL (0.60-1.30); MAGNESIUM 2.1 MG/DL (1.6-2.4); PHOSPHORUS 3.8 MG/DL (2.3-4.7); TOTAL PROTEIN 6.3 GM/DL (6.4-8.2)
[2023-04-30 05:14] LABS: LYMPHOCYTES % (MANUAL) 4 %; MONOCYTES % (MANUAL) 1 %; NEUTROPHILS % (MANUAL) 95 %; RBC MORPH NORMAL
[2023-04-30] MEDS: POTASSIUM CHLORIDE 20 MEQ TABLET PO SCH (05:57)
[2023-04-30] MEDS: POTASSIUM CL 10MEQ/50ML IVPB 50 ML IV SCH (05:57)
[2023-04-30] MEDS: MAGNESIUM 1 GM/100 ML IVPB 100 ML IV SCH (05:57)
[2023-04-30] MEDS: PANTOPRAZOLE 40 MG TABLET PO SCH (06:19)
[2023-04-30] MEDS: inSUlin ASPART 1 UNIT/0.01 ML (PER UNIT) SC SCH ×4 (06:35→20:27)
--- NOTE | 2023-04-30 06:41 | Progress Note ---
Subjective HPI/CC On Admission Date Seen by Provider: Apr 30, 2023 Time Seen by Provider: 07:50 62-year-old female with a history of CAD status post four-vessel CABG in 2018, COPD, current tobacco abuse, hypertension, hyperlipidemia, hiatal hernia who presents for evaluation of chest discomfort. History is obtained from patient's . states that patient has been quite fatigued and coughing intermittently. He notes that she has simply wanted to sleep all day. He denies that she has reported any fevers or chills. They were resting this evening and she experienced acute onset neck/jaw discomfort with radiation of discomfort into her bilateral arms and into her chest. checked her blood pressures using a cuff and stated that it was 79/55. In that setting he became concerned and brought her in for evaluation. Urgency room, EKG was obtained. Patient noted that the pain she was experiencing was similar to what she experienced when she had a heart attack back in 2018. EKG demonstrated ST elevations in V3 V4 and a code STEMI was called. Personal review of the EKG demonstrates ST elevations in V3 4 without reciprocal changes less concerning for STEMI. We did take the patient to the Fur Examiner. She was found to have an atretic saphenous vein graft to the distal RCA with patent saphenous vein graft to OM1 and OM 2 as well as a patent SCOTT to LAD. No intervention was performed. STEMI was aborted. Patient is now being transferred to the floor for further care. She will be cared for by the hospitalist service. Upon my arrival the patient was little somnolent but easily arousable she is a poor historian does not recall being confused does remember that she was having chest discomfort radiating to the neck and the left arm but reports no chest pain this morning. She denies abdominal pain dysuria increasing urinary frequency reporting baseline smoker's cough minimal sputum production no blood or purulent sputum noted denied chills fever or night sweats. Subjective/Events-last exam Patient continues to do well today. She denies any further episodes of chest pain since yesterday. Nurse states that patient has not appeared to be confused since yesterday either. Has not noticed any abnormal rhythms since 5 AM on 04/29. Patient otherwise feels well and has no concerns today. Review of Systems General: No Chills, No Fatigue HEENT: No Head Aches Pulmonary: No Dyspnea, No Cough Cardiovascular: No: Chest Pain, Palpitations Gastrointestinal: No: Nausea, Vomiting, Abdominal Pain, Diarrhea, Constipation Genitourinary: No Dysuria Neurological: No: Weakness, Confusion Objective Exam Vital Signs Vital Signs Date Time Temp Pulse Resp B/P (MAP) Pulse Ox O2 Delivery O2 Flow Rate FiO2 04/30/23 11:00 91 52 92 Nasal Cannula 2.00 04/30/23 08:08 36.4 Capillary Refill : Less Than 3 Seconds General Appearance: No Apparent Distress HEENT: PERRL/EOMI Neck: Full Range of Motion, Normal Inspection Respiratory: Chest Non Tender, Other (Patient noted to have an expiratory wheezing and rhonchi/crackles in the right lower lobe concerning for pneumonia) Cardiovascular: Regular Rate, Rhythm, No Edema, No Murmur Gastrointestinal: Normal Bowel Sounds, Non Tender, Soft Neurologic/Psychiatric: Alert, Oriented x3 Skin: Normal Color, Warm/Dry Results/Procedures Lab Laboratory Tests 04/30/23 04:22 Patient resulted labs reviewed. Imaging: Reviewed Imaging Report Assessment/Plan Assessment and Plan Assess & Plan/Chief Complaint STEMI Diagnosis/Problems Diagnosis/Problems (1) STEMI (ST elevation myocardial infarction) Status: Acute Assessment & Plan: Patient was initially admitted for elevated troponin and EKG overall concerning for STEMI. Cardiology, patient has acute coronary syndrome with diffuse three-vessel disease but is not amenable to percutaneous intervention at this time. Cardiology following, appreciate recommendations Further recommendations, will continue IV fluids, start Plavix and restart Lovenox this morning. Follow-up troponin this morning Continue aspirin, statin, lisinopril and Toprol Qualifiers: Qualified Codes: I21.3 - ST elevation (STEMI) myocardial infarction of unspecified site (2) COPD exacerbation Status: Acute Assessment & Plan: Patient noted to have increasing leukocytosis today to 21.6. CTA chest was notable for an atypical infection or aspiration event. Patient does have physical exam findings concerning for pneumonia. Levofloxacin was discontinued as this is not adequately treating patient. Start Zosyn for pneumonia treatment Continue albuterol/ipratropium inhaler Solu-Medrol every 6 hours for COPD exacerbation treatment (3) Newly recognized murmur Assessment & Plan: Cardiology noting new murmur on exam today. Per cardiology planning to repeat echo to assess for causes of new murmur (4) Confusion Status: Resolved Assessment & Plan: Confusion noted yesterday appears to have resolved today. Likely secondary to COPD exacerbation/pneumonia that was noted on imaging. We will continue to monitor. Resolution Date/Time: 04/30/23 @ 11:19 (5) Hyperglycemia Status: Acute Assessment & Plan: Patient noted to have glucose of 300. Continue sliding scale insulin at this time A1c pending LISSY GALEANO MD, RESIDENT Apr 30, 2023 06:41
[2023-04-30] MEDS: NICOTINE 14 MG PATCH TD SCH (08:06)
[2023-04-30] MEDS: ASPIRIN enteric coated 81MG TABLET PO SCH (08:06)
[2023-04-30] MEDS: GABAPENTIN 400 MG CAPSULE PO SCH ×3 (08:07→20:28)
[2023-04-30] MEDS ORDERED: ACETAMINOPHEN 500 MG TABLET PO PRN (08:30)
[2023-04-30] MEDS: ACETAMINOPHEN 500 MG TABLET PO PRN ×3 (10:09→20:28)
[2023-04-30] MEDS ORDERED: CLOPIDOGREL 300 MG TABLET PO ONE (10:15)
--- NOTE | 2023-04-30 10:23 | Cardiology Progress Note ---
Subjective Date Seen by Provider: Apr 30, 2023 Time Seen by Provider: 09:00 Subjective/Events-last exam No acute events overnight. Patient states that her shortness of breath is stable. She notes increasing cough with some rib pain. She notes some intermittent neck discomfort. Several updates: Echocardiogram reveals RV failure. Suspect a component of her presentation is secondary to the atretic saphenous vein graft RCA and occluded moapa RCA circulation. Chest CTA performed and demonstrated likely pneumonia and no PE. Treating for RV failure. This morning noted a new murmur on exam. We will get a follow-up echocardiogram today as well. Troponin 0.998 from yesterday. Anti-infective regimen transitioned from levofloxacin to Zosyn by hospitalist. Objective-Cardiology Exam Last Set of Vital Signs Vital Signs 04/30/23 04/30/23 08:08 09:00 Temp 36.4 Pulse 81 Resp 22 B/P (MAP) 121/63 (80) Pulse Ox 92 O2 Delivery Nasal Cannula O2 Flow Rate 2.00 I&O Intake and Output 04/30/23 00:00 Intake Total 1715 ml Output Total 3250 ml Balance -1535 ml Intake Oral 1315 ml IV Total 400 ml Output Urine Total 3250 ml Daily Weight Change No Other physical findings Gen: NAD, resting comfortably Neck: No bruits, no JVD Lungs: Breath sounds still diminished, but improved aeration is noted. Less rhonchi noted on exam. No wheezing. Faint rales appreciated. . CV: nl s1/s2; no gallops or rubs appreciated, regular rate and rhythm. No murmur appreciated on exam, systolic 2-3 out of 6, harsh, heard best along the left sternal border Abd: + BS, soft NT,ND, no hepatosplenomegaly Ext: 2+ radial and DP pulses; no c-c-e, wwp Results Lab Laboratory Tests 04/30/23 04:22 A/P-Cardiology Assessment/Plan 62-year-old female with a history of CAD status post four-vessel CABG in 2018, COPD, current tobacco abuse, hypertension, hyperlipidemia, hiatal hernia who presents for evaluation of chest discomfort, sob and fatigue. ##Aborted STEMI: Cardiac cath demonstrated atretic saphenous vein graft to distal right coronary artery with patent SCOTT to LAD and patent saphenous vein graft to OM1 and OM 2. No intervenable targets noted. Continue cardiotonic regimen which includes aspirin, statin, Toprol, lisinopril. a1c pending. Troponin trend: 0.02 on admit to 0.998 yesterday; f/u Tn today. TTE images from yesterday demonstrated normal LV size and function, moderately decreased RV function with moderately increased RV size, concerning for RV failure. Continue IV fluids. start Plavix. Restart Lovenox 1 mg/kg twice daily. Follow-up tropon in this morning, ##New murmur: New murmur noted on exam today. We will get a repeat echocardiogram to assess for VSD versus any valvular lesions such as mitral regurgitation. ##RV failure: Suspect secondary to minimal flow to the right side of the heart. Chest CTA confirmed no PE. The RCA is occluded and saphenous vein graft to distal right coronary artery is atretic. No revascularization options at this point time. We will continue to support with IV fluids. Patient maintaining blood pressures 110s to 140s systolic. ## NSTEMI: Tn now 0.998; no intervenable targets noted on cath. cont ASA, statin, lisinopril and Toprol. If Tn continues to climb, consider addition of plavix. TTE pending. notes BPs were down to 70s systolic yesterday when he checked- not sure for how long- any concomitant infection? ## Dyspnea: lung exam c/w COPD exacerbation, although lung exam improved this morning. Also, chest CTA is concerning for pneumonia. Continue Solu-Medrol every 6 hours, nebulizers every 4 hours. And agree with transition from levofloxacin to Zosyn. ## HLD: LDL 87, TC 134, TG 192, HDL 34; continue atorvastatin to 80; target LDL < 55. ##Disposition: Cardiology will continue to follow along. Hospitalist to manage. SPENCER BLACKMAN MD Apr 30, 2023 10:23
[2023-04-30] MEDS ORDERED: PIPERACILLIN/Tazobactam 4.5 GM in NS (IVPB) 100 ML 100 ML IV ONE (10:30)
[2023-04-30] MEDS: ENOXAPARIN 80 MG/0.8 ML SYRINGE SC SCH ×2 (10:39→22:52)
--- NOTE | 2023-04-30 11:02 | Tele-ICU Progress Note ---
Subjective Date Seen by a Provider: Apr 30, 2023 Time Seen by a Provider: 11:02 Subjective/Events-last exam (Tele-ICU Physician , Progress Note ) Service provided via interactive audio and video telecommunications E-CARE system to a patient admitted to ICU bed in [facility]. Patient is seen today due to persistent need of ICU care Available chart/ vitals / labs / Images reviewed Video assessment done using teleICU camera, rest of exam as per RN Discussed with RN Events overnight : Afebrile hemodynamically stable Respiratory - 2l I/O = Drips: = Pressors- no Hospital course: (04/28) 62F Admitted for STEMI s/p cardiac cath: aborted since atretic SVG to RCA. Others patent. No amenable targets. Medical manage. A/P NSTEMI, h/o CAD -as per cards, s/p cath - full dose lovenox " new murmur on exam " by cards - repeated ECHO pending RV failure - No PE - as per cards needs IBF to maintain BP for perfusion of occluded RCA Suspected COPD - on TX with steroids and nebs Leukocutosis - empiric abx started Lines : periph , (Central Line Necessity Reviewed) Salomon: void OG: Nutrition: Analgesia: Anxiety/ delirium VTE Prophylaxis: josie full Stress Ulcer Prophylaxis: Plans in collaboration with bedside consultants and IM MDs. Discussed with RN to reach out if any questions or concerns Case and care daily discussed on multidisciplinary rounds ( RN, PharmD, Bench Machine Operator , Respiratory Therapy, yard warehouse worker ) A total of 11 minutes of critical care time was devoted to this patient today, required to treat and/or prevent further deterioration of critical care condition ( as above ) . I am remotely monitoring this patient from another state. I am unable to do the bedside exam, and history/physical and pertinent information is taken from other notes in the computer and bedside staff. Sepsis Event Evaluation Height, Weight, BMI Height: 5'1.00" Weight: 114lbs. 6.0oz. 51.496784yp; 28.88 BMI Method:Stated Exam Exam Patient acknowledged, consented, and participated in this virtual visit which was conducted using real time audio/video Vital Signs Date Time Temp Pulse Resp B/P (MAP) Pulse Ox O2 Delivery O2 Flow Rate FiO2 04/30/23 10:00 86 23 141/64 (113) 94 Nasal Cannula 2.00 917/23 09:00 81 22 121/63 (80) 92 Nasal Cannula 2.00 04/30/23 08:08 36.4 04/30/23 08:00 98 27 146/77 (91) 88 Nasal Cannula 2.00 04/30/23 07:00 90 28 122/88 (102) 92 Nasal Cannula 2.00 04/30/23 07:00 83 04/30/23 06:48 93 Room Air 0.00 04/30/23 06:00 76 95 114/61 (78) 94 Nasal Cannula 2.00 04/30/23 05:00 86 21 102/90 (94) 94 Nasal Cannula 2.00 04/30/23 04:09 94 Nasal Cannula 2.00 04/30/23 04:00 76 21 116/56 (76) 94 Nasal Cannula 2.00 04/30/23 03:53 36.3 04/30/23 03:00 67 22 111/57 (75) 94 Nasal Cannula 2.00 04/30/23 02:41 94 Nasal Cannula 6.00 04/30/23 02:00 74 18 108/80 (89) 94 Nasal Cannula 2.00 04/30/23 01:00 76 26 110/50 (70) 94 Nasal Cannula 2.00 04/30/23 00:35 67 04/30/23 00:02 95 Nasal Cannula 2.00 04/30/23 00:00 65 28 100/48 (65) 94 Nasal Cannula 2.00 04/29/23 23:00 67 26 119/60 (79) 95 Nasal Cannula 2.00 04/29/23 22:39 94 Nasal Cannula 6.00 04/29/23 22:00 73 30 117/58 (77) 95 Nasal Cannula 2.00 04/29/23 21:00 62 24 100/60 (73) 95 Nasal Cannula 2.00 04/29/23 20:00 73 28 129/53 (78) 95 Nasal Cannula 2.00 04/29/23 19:56 97 Nasal Cannula 2.00 04/29/23 19:51 36.1 04/29/23 19:00 71 28 125/66 (85) 94 Nasal Cannula 2.00 04/29/23 19:00 71 04/29/23 18:44 97 Nasal Cannula 6.00 9/16/23 18:00 68 30 131/62 (85) 97 Nasal Cannula 2.00 04/29/23 17:00 62 20 111/63 (79) 97 Nasal Cannula 2.00 04/29/23 16:00 96 Nasal Cannula 2.00 04/29/23 16:00 72 27 121/69 (86) 97 Nasal Cannula 2.00 04/29/23 15:59 36.6 04/29/23 15:12 97 Nasal Cannula 6.00 04/29/23 15:00 77 27 123/76 (92) 98 Nasal Cannula 2.00 04/29/23 14:00 75 20 95 Nasal Cannula 2.00 04/29/23 13:00 72 21 140/82 (102) 93 Nasal Cannula 2.00 04/29/23 12:43 67 04/29/23 12:00 94 Nasal Cannula 2.00 04/29/23 12:00 66 29 94 Nasal Cannula 2.00 I & O 04/30/23 07:00 Intake Total 2535 ml Output Total 2250 ml Balance 285 ml Height & Weight Height: 5'1.00" Weight: 114lbs. 6.0oz. 51.688860us; 28.88 BMI Method:Stated General Appearance: No Apparent Distress, Other (Somewhat somnolent but easily arousable) HEENT: PERRL/EOMI Neck: Full Range of Motion, Non Tender, Supple Respiratory: No Accessory Muscle Use, No Respiratory Distress, Other ( scatt ered rhonchi throughout no wheezing noted.) Cardiovascular: Regular Rate, Rhythm, No Edema, No Gallop, No JVD, No Murmur Capillary Refill: Less Than 3 Seconds Extremity: Normal Inspection, Normal Range of Motion, Non Tender, No Pedal Edema Neurologic/Psychiatric: Alert, Oriented x3, No Motor/Sensory Deficits Skin: Normal Color, Warm/Dry Results Lab Laboratory Tests 04/28/23 22:00 04/28/23 23:10 04/29/23 02:51 04/30/23 04:22 Assessment/Plan Assessment/Plan 1 WANDA MARIE MD Apr 30, 2023 11:02
[2023-04-30] MEDS ORDERED: OXYMETAZOLINE 0.05% NASAL SPRAY 30 ML BTL PRN (13:15)
[2023-04-30] MEDS: BENZONATATE 100 MG CAPSULE PO PRN (15:55)
[2023-04-30] MEDS: PIPERACILLIN/Tazobactam 4.5 GM in NS (IVPB) 100 ML 100 ML IV SCH (18:45)
[2023-04-30] MEDS ORDERED: TEMAZEPAM 15 MG (RESTORIL) CAP PO ONE (21:00)
[2023-04-30] MEDS ORDERED: TEMAZEPAM 7.5 MG CAP (RESTORIL) PO ONE (22:45)
[2023-05-01] MEDS: PIPERACILLIN/Tazobactam 4.5 GM in NS (IVPB) 100 ML 100 ML IV SCH ×3 (01:25→16:50)
[2023-05-01] MEDS: RT-Ipratropium/Albuterol NEB 3 ML VIAL INH SCH ×6 (02:25→22:02)
[2023-05-01] MEDS: BENZONATATE 100 MG CAPSULE PO PRN ×2 (03:35→14:57)
[2023-05-01] MEDS: NS IV 1000 ML 1,000 ML IV SCH (04:27)
[2023-05-01] MEDS: methylPREDNISolone INJ 40 MG/ML VIAL IV SCH (05:08)
[2023-05-01 05:29] LABS: BASOPHILS % (AUTO) 0 % (0-10); EOSINOPHILS % (AUTO) 0 % (0-10); HEMATOCRIT 32 % (35-52); HEMOGLOBIN 10.2 g/dL (11.5-16.0); LYMPHOCYTES # (AUTO) 0.6 10^3/uL (1.0-4.0); LYMPHOCYTES % (AUTO) 3 % (12-44); MEAN CORPUSCULAR HEMOGLOBIN 31 pg (25-34); MEAN CORPUSCULAR HGB CONC 32 g/dL (32-36); MEAN CORPUSCULAR VOLUME 96 fL (80-99); MEAN PLATELET VOLUME 10.2 fL (9.0-12.2); MONOCYTES # (AUTO) 0.4 10^3/uL (0.0-1.0); MONOCYTES % (AUTO) 2 % (0-12); NEUTROPHILS % (AUTO) 95 % (42-75); PLATELET COUNT 312 10^3/uL (130-400); WHITE BLOOD COUNT 24.2 10^3/uL (4.3-11.0)
[2023-05-01 05:40] LABS: ALBUMIN 3.7 GM/DL (3.2-4.5); BILIRUBIN,TOTAL 0.2 MG/DL (0.1-1.0); CALCIUM 8.6 MG/DL (8.5-10.1); CREATININE SERUM 0.84 MG/DL (0.60-1.30); MAGNESIUM 2.1 MG/DL (1.6-2.4); PHOSPHORUS 3.5 MG/DL (2.3-4.7); POTASSIUM 4.3 MMOL/L (3.6-5.0); TOTAL PROTEIN 6.2 GM/DL (6.4-8.2)
[2023-05-01 05:43] LABS: BURR CELLS SLIGHT; LYMPHOCYTES % (MANUAL) 5 %; MONOCYTES % (MANUAL) 1 %; NEUTROPHILS % (MANUAL) 94 %
[2023-05-01] MEDS: POTASSIUM CL 10MEQ/50ML IVPB 50 ML IV SCH (06:06)
[2023-05-01] MEDS: MAGNESIUM 1 GM/100 ML IVPB 100 ML IV SCH (06:06)
[2023-05-01] MEDS: POTASSIUM CHLORIDE 20 MEQ TABLET PO SCH (06:06)
[2023-05-01] MEDS: PANTOPRAZOLE 40 MG TABLET PO SCH (06:17)
[2023-05-01] MEDS: inSUlin ASPART 1 UNIT/0.01 ML (PER UNIT) SC SCH ×4 (06:18→20:07)
[2023-05-01] MEDS ORDERED: predniSONE 20 MG TABLET PO SCH (07:00)
[2023-05-01] MEDS: CLOPIDOGREL 75 MG TABLET PO SCH (08:08)
[2023-05-01] MEDS: NICOTINE 14 MG PATCH TD SCH (08:08)
[2023-05-01] MEDS: GABAPENTIN 400 MG CAPSULE PO SCH ×2 (08:08→12:28)
[2023-05-01] MEDS: ASPIRIN enteric coated 81MG TABLET PO SCH (08:09)
[2023-05-01] MEDS ORDERED: PANT40TA52 PO (09:27)
[2023-05-01] MEDS ORDERED: ASPI-1238 PO (09:27)
[2023-05-01] MEDS ORDERED: NICO4GUM31 (09:27)
[2023-05-01] MEDS ORDERED: GABA800T10 PO ×2 (09:27)
[2023-05-01] MEDS ORDERED: FLUT16SP22 NSEACH (09:27)
[2023-05-01] MEDS ORDERED: guaiFENesin/CODEINE 10ML UDC PO PRN ×2 (09:30→15:00)
--- NOTE | 2023-05-01 09:37 | Tele-ICU Progress Note ---
Subjective Date Seen by a Provider: May 01, 2023 Time Seen by a Provider: 09:37 Subjective/Events-last exam (Tele-ICU Physician , Progress Note ) Service provided via interactive audio and video telecommunications E-CARE system to a patient admitted to ICU bed in [facility]. Patient is seen today due to persistent need of ICU care Available chart/ vitals / labs / Images reviewed Video assessment done using teleICU camera, rest of exam as per RN Discussed with RN Events overnight : possible panic attach Afebrile hemodynamically stable Respiratory - I/O = Drips: Pressors- no (Tele-ICU Physician , Progress Note ) Service provided via interactive audio and video telecommunications E-CARE system to a patient admitted to ICU bed in [facility]. Patient is seen today due to persistent need of ICU care Available chart/ vitals / labs / Images reviewed Video assessment done using teleICU camera, rest of exam as per RN Discussed with RN Events overnight : Afebrile hemodynamically stable Respiratory - 2l I/O =+7 L Drips: = NA 125 Pressors- no Hospital course: (04/28) 62F Admitted for STEMI s/p cardiac cath: aborted since atretic SVG to RCA. Others patent. No amenable targets. Medical manage. A/P NSTEMI, h/o CAD -as per cards, s/p cath - full dose lovenox " new murmur on exam " by cards 04/30 - repeated ECHO done RV failure - No PE - as per cards needs IVF to maintain BP for perfusion of occluded RCA - ? STOP FLUID TODAY Wheezinbg - Suspected COPD vs pulm edema - on TX with steroids and nebs - on po steroids - reports anxiety with steroids - to taper down manuela Leukocutosis - empiric abx started for possible asp pNA Lines : periph , (Central Line Necessity Reviewed) Salomon: void OG: Nutrition: Analgesia: Anxiety/ delirium VTE Prophylaxis: josie full Stress Ulcer Prophylaxis: ppi Plans in collaboration with bedside consultants and IM MDs. Discussed with RN to reach out if any questions or concerns Case and care daily discussed on multidisciplinary rounds ( RN, PharmD, Communication And Outreach Manager , Respiratory Therapy, kennel worker ) A total of 15 minutes of critical care time was devoted to this patient today, required to treat and/or prevent further deterioration of critical care condition ( as above ) . I am remotely monitoring this patient from another state. I am unable to do the bedside exam, and history/physical and pertinent information is taken from other notes in the computer and bedside staff. Sepsis Event Evaluation Height, Weight, BMI Height: 5'1.00" Weight: 114lbs. 6.0oz. 51.198889ij; 30.34 BMI Method:Stated Exam Exam Patient acknowledged, consented, and participated in this virtual visit which was conducted using real time audio/video Vital Signs Date Time Temp Pulse Resp B/P (MAP) Pulse Ox O2 Delivery O2 Flow Rate FiO2 05/01/23 09:00 92 21 166/95 (118) 97 Nasal Cannula 2.00 05/01/23 08:30 Nasal Cannula 2.00 05/01/23 08:11 36.9 05/01/23 08:03 95 Room Air 05/01/23 08:00 93 40 125/90 (102) 95 Nasal Cannula 2.00 05/01/23 07:34 96 05/01/23 07:00 95 36 115/72 (86) 96 Nasal Cannula 2.00 05/01/23 06:52 96 Nasal Cannula 2.00 05/01/23 06:00 91 20 129/62 (80) 95 Nasal Cannula 2.00 05/01/23 05:00 93 28 152/75 (86) 94 Nasal Cannula 2.00 05/01/23 04:00 Room Air 05/01/23 04:00 91 22 133/65 (87) 96 Nasal Cannula 2.00 05/01/23 03:00 98 20 144/82 (94) 96 Nasal Cannula 2.00 05/01/23 02:25 95 Nasal Cannula 2.00 05/01/23 02:00 88 17 139/70 (99) 96 Nasal Cannula 2.00 05/01/23 01:00 80 05/01/23 01:00 80 18 103/54 (67) 96 Nasal Cannula 2.00 05/01/23 00:00 Room Air 05/01/23 00:00 81 19 116/57 (84) 96 Nasal Cannula 2.00 04/30/23 23:00 84 27 98/68 (74) 92 Nasal Cannula 2.00 04/30/23 22:00 93 31 105/82 (90) 100 Nasal Cannula 2.00 04/30/23 21:58 94 Nasal Cannula 2.00 04/30/23 21:00 80 24 114/64 (81) 92 Nasal Cannula 2.00 04/30/23 20:00 92 20 118/66 (75) 94 Nasal Cannula 2.00 04/30/23 19:58 Room Air 04/30/23 19:56 37.2 04/30/23 19:00 80 04/30/23 19:00 76 24 101/58 (70) 92 Nasal Cannula 2.00 04/30/23 18:51 96 Nasal Cannula 2.00 04/30/23 18:00 96 13 129/91 (103) 90 Nasal Cannula 2.00 04/30/23 17:00 87 29 122/64 (76) 92 Nasal Cannula 2.00 04/30/23 16:00 95 24 132/68 (91) 91 Nasal Cannula 2.00 04/30/23 16:00 97 Room Air 04/30/23 15:00 91 22 124/85 (115) 96 Nasal Cannula 2.00 04/30/23 14:49 94 Nasal Cannula 2.00 04/30/23 14:00 77 21 122/70 (85) 94 Nasal Cannula 2.00 04/30/23 13:00 89 28 95 Nasal Cannula 2.00 04/30/23 12:34 86 04/30/23 12:09 36.9 04/30/23 12:00 95 Nasal Cannula 2.00 04/30/23 12:00 90 25 140/72 (93) 99 Nasal Cannula 2.00 04/30/23 11:12 94 Nasal Cannula 2.00 04/30/23 11:00 91 52 92 Nasal Cannula 2.00 04/30/23 10:00 86 23 141/64 (113) 94 Nasal Cannula 2.00 I & O 05/01/23 06:59 Intake Total 4300 ml Output Total 1400 ml Balance 2900 ml Height & Weight Height: 5'1.00" Weight: 114lbs. 6.0oz. 51.879900ap; 30.34 BMI Method:Stated General Appearance: No Apparent Distress, Other (Somewhat somnolent but easily arousable) HEENT: PERRL/EOMI Neck: Full Range of Motion, Non Tender, Supple Respiratory: No Accessory Muscle Use, No Respiratory Distress, Other ( scattered rhonchi throughout no wheezing noted.) Cardiovascular: Regular Rate, Rhythm, No Edema, No Gallop, No JVD, No Murmur Capillary Refill: Less Than 3 Seconds Extremity: Normal Inspection, Normal Range of Motion, Non Tender, No Pedal Edema Neurologic/Psychiatric: Alert, Oriented x3, No Motor/Sensory Deficits Skin: Normal Color, Warm/Dry Results Lab Laboratory Tests 04/30/23 04:22 05/01/23 03:45 Assessment/Plan Assessment/Plan 1 WANDA MARIE MD May 01, 2023 09:37
[2023-05-01] MEDS: CALCIUM CARBONATE 500 MG CHEW TABLET PO PRN ×2 (09:48→15:06)
[2023-05-01] MEDS: ENOXAPARIN 80 MG/0.8 ML SYRINGE SC SCH ×2 (09:49→21:51)
[2023-05-01] MEDS: predniSONE 20 MG TABLET PO SCH (10:00)
--- NOTE | 2023-05-01 10:42 | Progress Note - Hospitalist ---
LEELEE CAMEJO 05/01/23 1042: Subjective HPI/CC On Admission Date Seen by Provider: May 01, 2023 Time Seen by Provider: 08:25 62-year-old female with a history of CAD status post four-vessel CABG in 2018, COPD, current tobacco abuse, hypertension, hyperlipidemia, hiatal hernia who presents for evaluation of chest discomfort. History is obtained from patient's . states that patient has been quite fatigued and coughing intermittently. He notes that she has simply wanted to sleep all day. He denies that she has reported any fevers or chills. They were resting this evening and she experienced acute onset neck/jaw discomfort with radiation of discomfort into her bilateral arms and into her chest. checked her blood pressures using a cuff and stated that it was 79/55. In that setting he became concerned and brought her in for evaluation. Urgency room, EKG was obtained. Patient noted that the pain she was experiencing was similar to what she experienced when she had a heart attack back in 2018. EKG demonstrated ST elevations in V3 V4 and a code STEMI was called. Personal review of the EKG demonstrates ST elevations in V3 4 without reciprocal changes less concerning for STEMI. We did take the patient to the Senior Electronics Design Engineer. She was found to have an atretic saphenous vein graft to the distal RCA with patent saphenous vein graft to OM1 and OM 2 as well as a patent SCOTT to LAD. No intervention was performed. STEMI was aborted. Patient is now being transferred to the floor for further care. She will be cared for by the hospitalist service. Upon my arrival the patient was little somnolent but easily arousable she is a poor historian does not recall being confused does remember that she was having chest discomfort radiating to the neck and the left arm but reports no chest pain this morning. She denies abdominal pain dysuria increasing urinary frequency reporting baseline smoker's cough minimal sputum production no blood or purulent sputum noted denied chills fever or night sweats. Subjective/Events-last exam 05/01/2023: CC: STEMI, Pneumonia HPI/update: Rocío 62F, notes that she is doing better. She says that she has a slight headache, but she feels okay otherwise. She denies any chest pain or referred pain to shoulder or jaw. She notes that she is now having some acid reflux symptoms, such as acid brash. She also notes that she has a slightly sore throat. She notes that she slept okay. Patient was able to transfer to the chair, saying that this felt okay. STEMI management continues to be medication. Troponin- elevated to 3.509H from 2.383H Review of Systems General: No Chills, No Night Sweats, No Fatigue HEENT: Head Aches; No Eye Pain Pulmonary: Cough; No Pleuritic Chest Pain Cardiovascular: No: Chest Pain, Palpitations, Orthopnea, Paroxysmal Noc. Dyspnea, Edema Gastrointestinal: No: Nausea, Vomiting, Abdominal Pain, Diarrhea, Constipation, Melena, Hematochezia Genitourinary: No Dysuria, No Frequency, No Incontinence, No Hematuria, No Retention, No Other Musculoskeletal: No: other, neck pain, shoulder pain, arm pain, back pain, hand pain, leg pain, foot pain Neurological: No: Weakness, Numbness, Incoordination, Change in speech, Conf usion, Seizures, Other Objective Exam Vital Signs Vital Signs Date Time Temp Pulse Resp B/P (MAP) Pulse Ox O2 Delivery O2 Flow Rate FiO2 05/01/23 10:30 96 Nasal Cannula 2.00 05/01/23 09:00 92 21 166/95 (118) 05/01/23 08:11 36.9 Capillary Refill : Less Than 3 Seconds General Appearance: No Apparent Distress, WD/WN HEENT: PERRL/EOMI, Moist Mucous Membranes; No Scleral Icterus (L), No Scleral Icterus (R) Neck: Full Range of Motion, Normal Inspection, Non Tender, Supple Respiratory: Chest Non Tender, No Accessory Muscle Use, No Respiratory Distress, Crackles, Expiration, Inspiration Cardiovascular: Regular Rate, Rhythm, No Edema, No Gallop, Normal Peripheral Pulses Gastrointestinal: Normal Bowel Sounds, Non Tender, Soft Rectal: Deferred Back: Normal Inspection Extremity: Normal Range of Motion, Non Tender Neurologic/Psychiatric: Alert, Oriented x3, No Motor/Sensory Deficits, Normal Mood/Affect Skin: Normal Color, Warm/Dry Lymphatic: No Adenopathy Results/Procedures Lab Laboratory Tests 05/01/23 03:45 Patient resulted labs reviewed. Imaging: Reviewed Imaging Report Assessment/Plan Assessment and Plan Assess & Plan/Chief Complaint 05/01/2023: Assessment: * STEMI * Acute on Chronic Hypoxic Respiratory Failure with PNA * Acute R-Ventricular Heart Failure * Hyperglycemia * GERD Plan: * Continue Plavix, Lovenox, Aspirin, Statin, Metoprolol * Zosyn w/ Albuterol/Ipratropium, Solu-Medrol * Cardiology F/U * Sliding Scale Insulin * Protonics, positional changes in bed (HOB >30) * Transfer to 4th floor Diagnosis/Problems Diagnosis/Problems (1) STEMI (ST elevation myocardial infarction) Status: Acute Assessment & Plan: Plavix, Lovenox, Aspirin, Statin, Lopressor Qualifiers: Qualified Codes: I21.11 - ST elevation (STEMI) myocardial infarction involving right coronary artery (2) Pneumonia Status: Acute Assessment & Plan: Zosyn (3) Acute right ventricular heart failure Status: Acute Assessment & Plan: Tx of PNA, Cardiolgy FU (4) Acute and chronic respiratory failure with hypoxia Status: Acute Assessment & Plan: O2 as needed, ABX, Tx heart concerns (5) Hyperglycemia Status: Acute Assessment & Plan: Insulin (6) COPD exacerbation Status: Acute (7) COPD (chronic obstructive pulmonary disease) Status: Chronic (8) Acid reflux Assessment & Plan: Protonics (9) Hx of CABG Status: Chronic BRITNI EATON DO 05/01/231941: Subjective Subjective/Events-last exam Patient doing a lot better Lungs are still very coarse Moving down to fourth floor Maintained on oxygen as needed Objective Exam General Appearance: No Apparent Distress, WD/WN, Chronically ill Respiratory: Crackles, Rales Cardiovascular: Regular Rate, Rhythm Neurologic/Psychiatric: Alert, Oriented x3 Assessment/Plan Assessment and Plan Assess & Plan/Chief Complaint Transfer to fourth floor PT and OT Supervisory-Addendum Brief Verification & Attestation Participated in pt care: history, MDM, physical Personally performed: exam, history, MDM, supervision of care Care discussed with: Medical Student Procedures: n/a Results interpretation: Verified all documentation Verification and Attestation of Medical Student E/M Service A medical student performed and documented this service in my presence. I reviewed and verified all information documented by the medical student and made modifications to such information, when appropriate. I personally performed the physical exam and medical decision making. Britni Eaton May 01, 2023,19:40 LEELEE CAMEJO May 01, 2023 10:42 BRITNI EATON DO May 01, 2023 19:42
[2023-05-01] MEDS: ACETAMINOPHEN 500 MG TABLET PO PRN ×2 (10:56→18:17)
[2023-05-01] MEDS ORDERED: FLUTICASONE NASAL SPRAY (120 SPRAYS) NS PRN (11:00)
[2023-05-01] MEDS ORDERED: NICOTINE POLACRILEX 4 MG PRN (11:00)
--- NOTE | 2023-05-01 11:24 | Cardiology Progress Note ---
Subjective Date Seen by Provider: May 01, 2023 Time Seen by Provider: 11:18 Subjective/Events-last exam Patient was seen and evaluated at bedside, laying down comfortably, still complaining of cough Complaint of chest pain with coughing Review of Systems General: No Chills, No Night Sweats; Fatigue, Malaise; No Appetite, No Other HEENT: No Head Aches, No Visual Changes, No Eye Pain, No Ear Pain, No Dysphasia, No Sinus Congestion, No Post Nasal Drip, No Sore Throat, No Other Pulmonary: Dyspnea, Cough; No Pleuritic Chest Pain, No Other Cardiovascular: Chest Pain; No: Palpitations, Orthopnea, Paroxysmal Noc. Dyspnea, Edema, Lt Headedness, Other Objective-Cardiology Exam Last Set of Vital Signs Vital Signs 05/01/23 05/01/23 08:11 11:00 Temp 36.9 Pulse 97 Resp 25 B/P (MAP) 100/98 (99) Pulse Ox 96 O2 Delivery Nasal Cannula O2 Flow Rate 2.00 I&O Intake and Output 05/01/23 00:00 Intake Total 4520 ml Output Total 2300 ml Balance 2220 ml Intake Oral 2420 ml IV Total 2100 ml Output Urine Total 2300 ml # Voids 1 General: Alert, Oriented X3, Cooperative HEENT: Atraumatic, PERRLA Neck: Supple, No JVD, No Thyromegaly Lungs: Clear to Auscultation, Normal Air Movement Heart: Regular Rate, Normal S1, Normal S2, No Murmurs Abdomen: Normal Bowel Sounds, Soft, No Tenderness, No Hepatosplenomegaly, No Masses Extremities: No Clubbing, No Cyanosis, No Edema, Normal Pulses, No Tenderness/Swelling Skin: No Rashes, No Breakdown, No Significant Lesion Neuro: Normal Gait, Normal Speech, Strength at 5/5 X4 Ext, Normal Tone, Sensation Intact Psych/Mental Status: Mental Status NL, Mood NL Results Lab Laboratory Tests 05/01/23 03:45 A/P-Cardiology Assessment/Plan ,Acute ST elevation myocardial infarction, aborted Cardiac catheterization was carried out by Dr. Charles inoperable disease Coronary artery disease, History of CABG x4 done in July 2018 in [place] Lexiscan test was done in May 2022 with no significant ischemia or infarction, stress score 6, SDS 1, EF 76% Cardiac catheterization was carried out with Dr. Charles on April 30, 2023 with atretic vein graft to the distal right coronary artery and the right coronary artery is occluded, patent SCOTT to LAD, patent vein graft to OM1 and OM 2. Not amendable to intervention, treated conservatively History of chest pain, chronic stable angina Congestive heart failure, 2D echo was done and repeated on April 30, 2023 with normal left ventricular size EF 55 to 60%, dilated right ventricle and right atrium and prominent left atrium, mild mitral regurgitation, moderate tricuspid regurgitation. Right-sided heart failure. Questionable pulmonary infiltrate on CT scan, receiving empiric antibiotics Hypertension, continue to monitor blood pressure Hyperlipidemia, LDL 87 maintained on atorvastatin 80 mg daily Depression Tobaccoism, still an active smoker. Educated on smoking cessation SUPA MCMANUS MD May 01, 2023 11:24
[2023-05-01 12:00] VITALS: BP 139/72
[2023-05-01] MEDS ORDERED: NON-FORMULARY MEDICATION 1 EA EA (Gabapentin 800 MG) PO SCH (14:00)
[2023-05-01 14:22] VITALS: BP 172/79
[2023-05-01 15:49] VITALS: BP 115/74
[2023-05-01] MEDS ORDERED: ROPINIROLE HCL 6 MG PO SCH (18:00)
[2023-05-01 20:01] VITALS: BP 135/79
[2023-05-01] MEDS ORDERED: NON-FORMULARY MEDICATION 1 EA EA (Gabapentin 1,600 MG) PO SCH (21:00)
[2023-05-01] MEDS ORDERED: GABAPENTIN 400 MG CAPSULE PO SCH (21:00)
[2023-05-01] MEDS ORDERED: LORazepam 0.5 MG TABLET ONE (21:15)
[2023-05-01] MEDS: HYDROcodone/ACETAMINOPHEN 7.5 MG/325 MG TABLET PO PRN (21:16)
[2023-05-01] MEDS: LORazepam 0.5 MG TABLET PO PRN (21:16)
[2023-05-01 23:30] VITALS: BP 147/64
[2023-05-02] MEDS ORDERED: NS (IVPB) 50 ML 50 ML ONE (01:00)
[2023-05-02] MEDS: PIPERACILLIN/Tazobactam 4.5 GM in NS (IVPB) 100 ML 100 ML IV SCH ×2 (01:14→09:11)
[2023-05-02] MEDS: HYDROcodone/ACETAMINOPHEN 7.5 MG/325 MG TABLET PO PRN ×3 (01:22→12:39)
[2023-05-02] MEDS: RT-Ipratropium/Albuterol NEB 3 ML VIAL INH SCH ×4 (02:16→14:45)
[2023-05-02] MEDS: LORazepam 0.5 MG TABLET PO PRN (03:19)
[2023-05-02 03:21] VITALS: BP 140/71
[2023-05-02 05:22] LABS: BASOPHILS % (AUTO) 0 % (0-10); EOSINOPHILS % (AUTO) 0 % (0-10); HEMATOCRIT 32 % (35-52); HEMOGLOBIN 10.3 g/dL (11.5-16.0); LYMPHOCYTES # (AUTO) 1.7 10^3/uL (1.0-4.0); LYMPHOCYTES % (AUTO) 8 % (12-44); MEAN CORPUSCULAR HEMOGLOBIN 31 pg (25-34); MEAN CORPUSCULAR HGB CONC 32 g/dL (32-36); MEAN CORPUSCULAR VOLUME 97 fL (80-99); MEAN PLATELET VOLUME 9.8 fL (9.0-12.2); MONOCYTES % (AUTO) 5 % (0-12); NEUTROPHILS # (AUTO) 18.2 10^3/uL (1.8-7.8); NEUTROPHILS % (AUTO) 87 % (42-75); PLATELET COUNT 301 10^3/uL (130-400)
[2023-05-02 05:47] LABS: ALBUMIN 3.5 GM/DL (3.2-4.5); BILIRUBIN,TOTAL 0.2 MG/DL (0.1-1.0); CALCIUM 8.6 MG/DL (8.5-10.1); CREATININE SERUM 0.82 MG/DL (0.60-1.30); POTASSIUM 4.5 MMOL/L (3.6-5.0); TOTAL PROTEIN 5.8 GM/DL (6.4-8.2)
[2023-05-02] MEDS: inSUlin ASPART 1 UNIT/0.01 ML (PER UNIT) SC SCH ×2 (06:00→09:50)
[2023-05-02] MEDS: predniSONE 20 MG TABLET PO SCH (06:09)
[2023-05-02 06:20] LABS: LYMPHOCYTES % (MANUAL) 8 %; MONOCYTES % (MANUAL) 3 %; NEUTROPHILS % (MANUAL) 89 %; RBC MORPH NORMAL
[2023-05-02] MEDS ORDERED: predniSONE 20 MG TABLET PO SCH (07:00)
[2023-05-02 07:21] VITALS: BP 168/79
--- NOTE | 2023-05-02 08:33 | Cardiology Progress Note ---
Subjective Date Seen by Provider: May 02, 2023 Time Seen by Provider: 08:10 Subjective/Events-last exam Patient is sitting up in bed, denies any chest pain. Patient has abdominal wall hematoma from the Lovenox injection Objective-Cardiology Exam Last Set of Vital Signs Vital Signs 05/02/23 05/02/23 10: 11:17 Temp 37.7 Pulse 63 Resp 18 B/P (MAP) 155/79 (104) Pulse Ox 94 O2 Delivery Room Air O2 Flow Rate 2.00 I&O Intake and Output 05/01/23 23:59 Intake Total 2540 ml Output Total 550 ml Balance 1990 ml Intake Oral 1840 ml IV Total 700 ml Output Urine Total 550 ml # Voids 5 General: Alert, Oriented X3, Cooperative HEENT: Atraumatic, PERRLA Neck: Supple, No JVD, No Thyromegaly Lungs: Clear to Auscultation, Normal Air Movement Heart: Regular Rate, Normal S1, Normal S2, No Murmurs Abdomen: Normal Bowel Sounds, Soft, No Tenderness, No Hepatosplenomegaly, No Masses Extremities: No Clubbing, No Cyanosis, No Edema, Normal Pulses, No Tenderness/Swelling Skin: No Rashes, No Breakdown, No Significant Lesion Neuro: Normal Gait, Normal Speech, Strength at 5/5 X4 Ext, Normal Tone, Sensation Intact Psych/Mental Status: Mental Status NL, Mood NL Results Lab Laboratory Tests 05/02/23 04:25 05/02/23 04:55 A/P-Cardiology Admission Diagnosis STEMI CAD CHF HTN Assessment/Plan Acute ST elevation myocardial infarction, aborted Cardiac catheterization was carried out by Dr. Charles inoperable disease Coronary artery disease, History of CABG x4 done in July 2018 in [place] Lexiscan test was done in May 2022 with no significant ischemia or infarction, stress score 6, SDS 1, EF 76% Cardiac catheterization was carried out with Dr. Charles on April 30, 2023 with atretic vein graft to the distal right coronary artery and the right coronary artery is occluded, patent SCOTT to LAD, patent vein graft to OM1 and OM 2. Not amendable to intervention, treated conservatively History of chest pain, chronic stable angina Pneumonia, receiving antibiotics. Started on steroid Still having some cough and wheezing Congestive heart failure, 2D echo was done and repeated on April 30, 2023 with normal left ventricular size EF 55 to 60%, dilated right ventricle and r ight atrium and prominent left atrium, mild mitral regurgitation, moderate tricuspid regurgitation. Right-sided heart failure. Questionable pulmonary infiltrate on CT scan, receiving empiric antibiotics Hypertension, continue to monitor blood pressure Hyperlipidemia, LDL 87 maintained on atorvastatin 80 mg daily Depression Tobaccoism, still an active smoker. Educated on smoking cessation Supervisory-Addendum Brief Supervisory Addendum Participated in pt care: history, MDM, physical Personally performed: exam, history, MDM Care discussed with: JENNY Results interpretation: Verified all documentation Notes: Patient was seen and evaluated with Nilda, examination performed, management plan was discussed, agree with the current scribed note, I made few changes to the note using Italic font Patient was seen at bedside sitting comfortably, have abdominal wall hematoma from Lovenox injection I DC'd the Lovenox There is questionable pneumonia, still having some cough and shortness of breath. Receiving antibiotics I DC'd Lovenox, continue on aspirin and Brilinta Follow-up as an outpatient NILDA YOU May 02, 2023 08:33 SUPA MCMANUS MD May 02, 2023 11:52
[2023-05-02] MEDS ORDERED: PANTOPRAZOLE 40 MG TABLET PO SCH (09:00)
[2023-05-02] MEDS: CLOPIDOGREL 75 MG TABLET PO SCH (09:05)
[2023-05-02] MEDS: NICOTINE 14 MG PATCH TD SCH (09:11)
[2023-05-02] MEDS: GABAPENTIN 400 MG CAPSULE PO SCH ×2 (09:11→15:12)
--- NOTE | 2023-05-02 09:14 | Diagnostic Imaging Report ---
EXAMINATION: Chest 2 view HISTORY: Myocardial infarction COMPARISON: 04/28/2023 FINDINGS: Heart is enlarged. There is mild edema. No pleural effusion or pneumothorax. Median sternotomy wires are aligned. IMPRESSION: 1. Enlarged heart and mild edema. Dictated by: Dictated on workstation # [id number]
--- NOTE | 2023-05-02 09:39 | Progress Note ---
LEELEE CAMEJO 05/02/23 0939: Progress Note 05/02/2023: CC: STEMI, PNA Rocío is a 62 year old female that presented to the ED on 04/28 due to chest pain and referred pain to her shoulder and jaw. While on her way to the ED, she received aspirin. The EKG in the ED found that there was sinus bardycardia, with normal axis. Additionally, the EKG found ST elevations in V2, V3, and V4 which indicated a STEMI. Rocío noted that her symptoms were similar to the KS that she had in 2018 which resulted in a saphenous vein graft to the RCA and a SCOTT to LAD graft. For this encounter, Rocío was taken to the seed laboratory assistant and it was found that she had blockage in her saphenous vein graft, while the SCOTT remained patent. Dr. Tomlinson decided that medical treatment would be preferred for her. The STEMI was aborted. From here, Rocío was transferred to the ICU where she re ceived high acuity care. It was also discovered that Rocío was experiencing acute on chronic hypoxic respiratory failure with associated pneumonia. The pneumonia was treated with Zosyn. She also recieved oxygen support. She has remained on 2L of oxygen. Rocío has also been hyperglycemic, which has been treated with sliding scale insulin PRN. Additionally, Rocío had numerous c ardiology consults which resulted in her diagnosis with acute R-ventricular heart failure. It was decided that management of this condition would improve as her pneumonia cleared and she recovered from her STEMI. Rocío continued to show improvement thus she was transferred to the MED/SURG unit. Here Rocío has been able to ambulate. She also notes improvement in her PNA. She understands that it will take some time for her symptoms to improve. She has not had any issues with chest pain since her presentation to the ER. The biggest concern for Rocío is her rib pain from coughing. Additionally, it is noted that on 05/01/2023 Rocío developed suprapubic and lower abdominal bruising, likely due to the anticoagulation needed due to her STEMI. The lovenox was D/C to prevent continuation of this issue. When discussing discharge, Rocío feels empowered to return home. She notes that she uses oxygen intermittently while at home-- she was advised to use this during her pneumonia recovery. Rocío is to continue following up with her auditing coder and PCP for continued management of her STEMI, R-Ventricular HF, and PNA. She was educated to return to the hospital if there are any returns of symptoms, changes, or concerns. Rocío was educated to stop smoking due to increased risks associated with her conditions. For her discharge medications, she is advised to continue with her home medications. She will also be placed on prednisone, pain medication, and amoxicillin/potassium clav abx for her PNA. Rocío was advised about the importance of taking her aspirin, atorvastatin, lisinopril, and metoprolol to prevent subsequent KS. There are no other concerns about discharging to home. BRITNI EATON DO 05/02/23 1950: Supervisory-Addendum Brief Verification & Attestation Participated in pt care: history, MDM, physical Personally performed: exam, history, MDM, supervision of care Care discussed with: Medical Student Procedures: n/a Results interpretation: Verified all documentation Verification and Attestation of Medical Student E/M Service A medical student performed and documented this service in my presence. I reviewed and verified all information documented by the medical student and made modifications to such information, when appropriate. I personally performed the physical exam and medical decision making. Britni Eaton May 02, 2023,19:50 LEELEE CAMEJO May 02, 2023 09:39 BRITNI EATON DO May 02, 2023 19:50
[2023-05-02] MEDS ORDERED: PRED10TA22 PO (09:41)
[2023-05-02] MEDS ORDERED: HYDR-34 PO (09:41)
[2023-05-02] MEDS ORDERED: AMOX1TAB12 PO (09:41)
[2023-05-02] MEDS ORDERED: BENZ100C18 PO (09:41)
[2023-05-02] MEDS ORDERED: CLOP75TA28 PO (09:41)
--- NOTE | 2023-05-02 09:42 | Discharge Summary ---
Discharge Summary Hospital Course Problems/Dx: (1) STEMI (ST elevation myocardial infarction) Status: Acute Qualifiers: Qualified Codes: I21.11 - ST elevation (STEMI) myocardial infarction involving right coronary artery (2) Pneumonia Status: Acute (3) Acute right ventricular heart failure Status: Acute (4) Acute and chronic respiratory failure with hypoxia Status: Acute (5) Hyperglycemia Status: Acute (6) COPD exacerbation Status: Acute (7) COPD (chronic obstructive pulmonary disease) Status: Chronic (8) Acid reflux (9) Hx of CABG Status: Chronic Hospital Course Date of Admission: Apr 28, 2023 at 23:56 Admission Diagnosis : Family Physician/Provider: Justino Ervin DO Date of Discharge: 05/02/23 Discharge Diagnosis: [ ] Hospital Course: 05/02/2023: CC: STEMI, PNA Rocío is a 62 year old female that presented to the ED on 04/28 due to chest pain and referred pain to her shoulder and jaw. While on her way to the ED, she received aspirin. The EKG in the ED found that there was sinus bardycardia, with normal axis. Additionally, the EKG found ST elevations in V2, V3, and V4 which indicated a STEMI. Rocío noted that her symptoms were similar to the TX that she had in 2018 which resulted in a saphenous vein graft to the RCA and a SCOTT to LAD graft. For this encounter, Rocío was taken to the fish hatchery laborer and it was found that she had blockage in her saphenous vein graft, while the SCOTT remained patent. Dr. Tomlinson decided that medical treatment would be preferred for her. The STEMI was aborted. From here, Rocío was transferred to the ICU where she received high acuity care. It was also discovered that Rocío was experiencing acute on chronic hypoxic respiratory failure with associated pneumonia. The pneumonia was treated with Zosyn. She also recieved oxygen support. She has remained on 2L of oxygen. Rocío has also been hyperglycemic, which has been treated with sliding scale insulin PRN. Additionally, Rocío had numerous cardiology consults which resulted in her diagnosis with acute R-ventricular heart failure. It was decided that management of this condition would improve as her pneumonia cleared and she recovered from her STEMI. Rocío continued to show improvement thus she was transferred to the MED/SURG unit. Here Rocío has been able to ambulate. She also notes improvement in her PNA. She understands that it will take some time for her symptoms to improve. She has not had any issues with chest pain since her presentation to the ER. The biggest concern for Rocío is her rib pain from coughing. Additionally, it is noted that on 05/01/2023 Rocío developed suprapubic and lower abdominal bruising, likely due to the anticoagulation needed due to her STEMI. The lovenox was D/C to prevent continuation of this issue. When discussing discharge, Rocío feels empowered to return home. She notes that she uses oxygen intermittently while at home-- she was advised to use this during her pneumonia recovery. Rocío is to continue following up with her ramp agent and PCP for continued management of her STEMI, R-Ventricular HF, and PNA. She was educated to return to the hospital if there are any returns of symptoms, changes, or concerns. Rocío was educated to stop smoking due to increased risks associated with her conditions. For her discharge medications, she is advised to continue with her home medications. She will also be placed on prednisone, pain medication, and amoxicillin/potassium clav abx for her PNA. Rocío was advised about the importance of taking her aspirin, atorvastatin, lisinopril, and metoprolol to prevent subsequent TX. There are no other concerns about discharging to home. LEELEE CAMEJO Labs and Pending Lab Test: Laboratory Tests 05/01/23 10:33: Glucometer 165H 05/01/23 14:18: Glucometer 197H 05/01/23 19:25: Glucometer 161H 05/02/23 04:25: White Blood Count 21.0H, Red Blood Count 3.35L, Hemoglobin 10.3L, Hematocrit 32L , Mean Corpuscular Volume 97, Mean Corpuscular Hemoglobin 31, Mean Corpuscular Hemoglobin Concent 32, Red Cell Distribution Width 13.6, Platelet Count 301, Mean Platelet Volume 9.8, Immature Granulocyte % (Auto) 1, Neutrophils (%) (Auto) 87H, Lymphocytes (%) (Auto) 8L, Monocytes (%) (Auto) 5, Eosinophils (%) (Auto) 0, Basophils (%) (Auto) 0, Neutrophils # (Auto) 18.2H, Lymphocytes # (Auto) 1.7, Monocytes # (Auto) 1.0, Eosinophils # (Auto) 0.0, Basophils # (Auto) 0.0, Immature Granulocyte # (Auto) 0.2H, Neutrophils % (Manual) 89, Lymphocytes % (Manual) 8, Monocytes % (Manual) 3, Blood Morphology Comment NORMAL 05/02/23 04:55: Sodium Level 136, Potassium Level 4.5, Chloride Level 105, Carbon Dioxide Level 24, Anion Gap 7, Blood Urea Nitrogen 14, Creatinine 0.82, Estimat Glomerular Filtration Rate 81, BUN/Creatinine Ratio 17, Glucose Level 145H, Calcium Level 8.6, Corrected Calcium 9.0, Total Bilirubin 0.2, Aspartate Amino Transf ( AST/SGOT) 33, Alanine Aminotransferase (ALT/SGPT) 27, Alkaline Phosphatase 18L, Total Protein 5.8L, Albumin 3.5 05/02/23 05:11: Glucometer 144H Microbiology 04/29/23 MRSA Screen - Final, Complete MRSA not isolated Home Meds Active Prednisone 10 Mg Tab.ds.pk 10 Mg PO DAILY Take 6 tabs(60mg)daily,decrease by 1 tab(10MG)daily. Amox Tr-K Clv 875-125 mg Tab (Amoxicillin/Potassium Clav) 875 Mg-125 Mg Tablet 1 Each PO BID Tessalon Perles (Benzonatate) 100 Mg Capsule 200 Mg PO Q8H PRN HYDROcodone/APAP 7.5/325 TAB (Acetaminophen/Hydrocodone Bitart) 1 Ea Tablet 1 Ea PO Q4H PRN Clopidogrel (Clopidogrel Bisulfate) 75 Mg Tablet 75 Mg PO DAILY Reported Fluticasone Propionate 50 Mcg/Actuation [place].susp 1 [place] NSEACH BID PRN Pantoprazole Sodium 40 Mg Tablet.dr 40 Mg PO DAILY Nicotine Gum (Nicotine Polacrilex) 4 Mg Gum 4 Mg UD PRN Gabapentin 800 Mg Tablet 1,600 Mg PO HS TAKES 2 (800MG) TABS Gabapentin 800 Mg Tablet 800 Mg PO 0800,1400 Aspirin EC (Aspirin) 81 Mg Tablet.dr 81 Mg PO 1400 Ropinirole HCl 6 Mg Tab.er.24h 6 Mg PO 1800 Metoprolol Succinate 25 Mg Tab.er.24h 25 Mg PO 1400 Lisinopril 5 Mg Tablet 5 Mg PO 1400 LAST FILLED 02-24-2023 #30/30 DAY SUPPLY Atorvastatin Calcium 80 Mg Tablet 80 Mg PO 1400 Assessment/Pt Instructions PCP 1 week Discharge Planning: <30 minutes discharge planning Discharge Instructions Discharge Diet: No Restrictions Activity as Tolerated: Yes Discharge Physical Examination Vital Signs Vital Signs Date Time Temp Pulse Resp B/P (MAP) Pulse Ox O2 Delivery O2 Flow Rate FiO2 05/02/23 08:00 Room Air 05/02/23 07:42 95 2.00 05/02/23 07:21 37.0 62 20 168/79 (108) General Appearance: No Apparent Distress, WD/WN Respiratory: Lungs Clear Cardiovascular: Regular Rate, Rhythm Neurologic/Psychiatric: Alert, Oriented x3 Allergies: Coded Allergies: No Known Drug Allergies (Unverified , 06/20/22) Discharge Summary Date of Admission Apr 28, 2023 at 23:56 Date of Discharge Discharge Date: May 02, 2023 Admission Diagnosis 1. Acute coronary syndrome with diffuse three-vessel disease not amenable to percutaneous intervention continue current medical management. 2. Leukocytosis with altered mental status both of these issues are improving. No obvious evidence for infection at this point but will obtain influenza and COVID swab considering negative chest x-ray UA and H&P that does not point to any obvious infection sources. 3. Pulmonary examination does suggest underlying COPD raising the possibility of hypercapnia will obtain ABG now. We will repeat CBC in the morning. Discharge Diagnosis Transfer to fourth floor PT and OT (1) STEMI (ST elevation myocardial infarction) Status: Acute Assessment & Plan: Plavix, Lovenox, Aspirin, Statin, Lopressor Qualifiers: Qualified Codes: I21.11 - ST elevation (STEMI) myocardial infarction involving right coronary artery (2) Pneumonia Status: Acute Assessment & Plan: Zosyn (3) Acute right ventricular heart failure Status: Acute Assessment & Plan: Tx of PNA, Cardiolgy FU (4) Acute and chronic respiratory failure with hypoxia Status: Acute Assessment & Plan: O2 as needed, ABX, Tx heart concerns (5) Hyperglycemia Status: Acute Assessment & Plan: Insulin (6) COPD exacerbation Status: Acute (7) COPD (chronic obstructive pulmonary disease) Status: Chronic (8) Acid reflux Assessment & Plan: Protonics (9) Hx of CABG Status: Chronic SARABJIT EATON DO May 02, 2023 09:42
[2023-05-02] MEDS: ACETAMINOPHEN 500 MG TABLET PO PRN (10:27)
[2023-05-02 11:17] VITALS: BP 155/79
[2023-05-02] MEDS ORDERED: ASPIRIN enteric coated 81MG TABLET PO SCH (14:00)
== END 2023-05-02 15:30 | disposition home or self-care (01) | DRG 280 ==
LOC: EDUNIT# 21:28 → ER 21:29 → CATH 22:02 → ICU 23:56 → OBSVTOIN 23:56 → 4TH 05-01 14:03
PROVIDERS: ADMIT Internal Medicine Cardiovascular Disease; ATTEND Internal Medicine Cardiovascular Disease
PROC: 4A023N7 Measurement of Cardiac Sampling and Pressure, Left Heart, Percutaneous Approach (ICD-10-PCS; principal; 2023-04-28)
PROC: B2111ZZ Fluoroscopy of Multiple Coronary Arteries using Low Osmolar Contrast (ICD-10-PCS; 2023-04-28)
PROC: B2131ZZ Fluoroscopy of Multiple Coronary Artery Bypass Grafts using Low Osmolar Contrast (ICD-10-PCS; 2023-04-28)
DX: I21.11 ST elevation (STEMI) myocardial infarction involving right coronary artery (principal); J18.9 Pneumonia, unspecified organism; J96.21 Acute and chronic respiratory failure with hypoxia; T82.898A Other specified complication of vascular prosthetic devices, implants and grafts, initial encounter; D68.32 Hemorrhagic disorder due to extrinsic circulating anticoagulants; I11.0 Hypertensive heart disease with heart failure; I50.811 Acute right heart failure; I95.9 Hypotension, unspecified; J43.9 Emphysema, unspecified; F17.210 Nicotine dependence, cigarettes, uncomplicated; I25.118 Atherosclerotic heart disease of native coronary artery with other forms of angina pectoris; E78.00 Pure hypercholesterolemia, unspecified; I08.1 Rheumatic disorders of both mitral and tricuspid valves; K21.9 Gastro-esophageal reflux disease without esophagitis; R41.0 Disorientation, unspecified; R73.9 Hyperglycemia, unspecified; R01.1 Cardiac murmur, unspecified; Z95.1 Presence of aortocoronary bypass graft; Z79.82 Long term (current) use of aspirin; Z79.899 Other long term (current) drug therapy; Z79.52 Long term (current) use of systemic steroids; Z20.822 Contact with and (suspected) exposure to COVID-19; R58 Hemorrhage, not elsewhere classified; T45.515A Adverse effect of anticoagulants, initial encounter
CPT/HCPCS: 36415; 36600; 71045; 71046; 71275; 80053; 80061; 81000; 82805; 82947; 83036; 83735; 84100; 84484; 85007; 85025; 85027; 85610; 85730; 86850; 86900; 86901; 87081; 87636; 93005; 93306; 93308; 93459; 93567; 94640; 94760